=== PATIENT | male | born 1955 | race Caucasian/White ===

== ENCOUNTER 2017-05-14 04:49 | Inpatient (IN) | payer MEDICARE, SELFPAY ==
[2017-05-14] VITALS (43 sets, daily range): BP systolic 92–185; BP diastolic 43–92; PULSE 72–151; RESP 14–37; TEMP 36.3–39.4; O2SAT 95–100; BMI 33.9; BMI 31.9
--- NOTE | 2017-05-14 04:51 | NURSING ---
rn called for ekg, pulled old ekg's for
--- NOTE | 2017-05-14 04:53 | RAD_ITS ---
STUDY: X-RAY CHEST REASON FOR EXAM: Male, 61 years old. Shortness of breath TECHNIQUE: Single frontal view COMPARISON: None. FINDINGS: There is suboptimal inspiration There are bibasilar infiltrates and small effusions larger on the RIGHT. There is NO pneumothorax. Heart is borderline enlarged. Normal mediastinum and elizabeth. Normal visualized pulmonary arteries. Normal visualized aortic arch and descending thoracic aorta. Normal visualized thoracic spine. There is fracture of RIGHT rib #7. There is no demonstrated abnormality of the visualized soft tissue structures of the upper abdomen. RAD/Chest 1 View (Portable) IMPRESSION: There is suboptimal inspiration There are bibasilar infiltrates and small effusions larger on the RIGHT. There is NO pneumothorax. Heart is borderline enlarged. Electronically Signed: Ryan Mejia MD at 6:22 EST , Service support ,
--- NOTE | 2017-05-14 04:53 | EKG12_ITS ---
Test Reason : SOB Blood Pressure : / mmHG Vent. Rate : 149 BPM Atrial Rate : 150 BPM P-R Int : 168 ms QRS Dur : 078 ms QT Int : 256 ms P-R-T Axes : 000 067 081 degrees QTc Int : 403 ms Sinus tachycardia with frequent Premature ventricular complexes Nonspecific ST and T wave abnormality Abnormal ECG When compared with ECG of 25-SEP-2007 07:47, MANUAL COMPARISON REQUIRED, DATA IS UNCONFIRMED Confirmed by HARSH ASIF, SARA ([id number]), scientific publications editor KEVIN MORRELL ([id number]) on 05/26/2017 3:30:36 PM Referred By: RADHA Confirmed By:SARA HOUSE MD
[2017-05-14] MEDS: MethylPREDNISolone 125 MG/2 ML Vial IV (05:01)
[2017-05-14] MEDS: Ipratropium/Albuterol Sulfate 3 ML AMPUL.NEB INHALATION ×4 (05:01→19:08)
[2017-05-14] MEDS: Albuterol 2.5 MG/3 ML VIAL.NEB. INHALATION ×3 (05:01→05:15)
[2017-05-14] MEDS: 0.9% Normal Saline 1,000 ML 999 ML IV (05:03)
--- NOTE | 2017-05-14 05:05 | ED.DCSUM_ITS ---
- ER Visit Summary Date of Service: 05/14/17 Chief Complaint: Cough, shortness of breath History of Present Illness: The patient is a 61 M with history of COPD, coronary vascular disease presents to the emergency department with shortness of breath. The patient states over the past 3 days, he is a gradual worsening shortness of breath. Patient states over the past 12 hours, he had cough productive sputum, fevers, chills, myalgias. The patient did have prior right lobectomy for lung mass that was not cancerous. He does have chronic underlying lung condition. The patient is on Plavix but denies any other anticoagulants. He denies any sick contacts. He did not get a flu shot this year. Patient called squad because he felt like he cannot breathe. On squad arrival, the patient was 86% on room air. He has apparently tried his CPAP tonight to see if that help his breathing but it did not work. He does have some chest tightness, but feels like it is more related to his breathing. He did take a nitro with no change in his symptoms. Physical Examination: Vital signs reviewed General: Well-nourished, well-developed Head: Normocephalic, atraumatic Eyes: Pupils equal and reactive, extraocular muscles intact Neck, supple, no lymphadenopathy Heart: Regular tachycardic rate without murmur Respiratory: Moderate respiratory distress with diminished air movement and wheezing in all [place] Abdomen: Soft, nontender, nondistended, no peritoneal signs Back: Nontender Extremities: Nontender, no edema, no cords Skin: Normal color no rash Neuro: Alert and oriented, no focal or lateralizing deficits Test Results: EKG demonstrates sinus tachycardia with some lateral ST depression. Chest x-ray demonstrates bilateral infiltrates and small effusions. Screening labs show leukocytosis, anemia, acute kidney injury, elevated lactate, and indeterminate troponin. Emergency Department Course and Treatment: Patient presents with cough, dyspnea , fever, and general malaise. Sepsis workup was pursued immediately on arrival. Patient was able to be placed on nasal cannula breathing treatments. He had improvement of his aeration, but stayed tachypneic and tachycardic. His EKG does not show acute ST elevation, and there is some lateral depression but I do feel this is likely secondary to his hypoxia and underlying metabolic deficit. Immediate blood gas was obtained which shows metabolic acidosis with respiratory compensation. Screening labs demonstrate leukocytosis and a new anemia. Unfortunately, we have no old labs to compare to. In discussion with the patient, he has had some diarrhea over the past 2 days that he said has been dark. He is on 2 different anticoagulants. I do have some suspicion that there may be GI bleed involved that is worsening his symptoms. Patient was typed and crossed for 2 units, especially given his underlying cardiac disease and evidence of endorgan dysfunction. He has acute kidney injury with no old to compare to. His lactate is mildly elevated. The patient was aggressively hydrated. He was transitioned to BiPAP for comfort with improvement. At this time, the patient is going to need ICU admission. He was discussed with Dr. Barlow. The patient was covered with vancomycin and Zosyn. His influenza was negative. The patient will be admitted for severe sepsis, GI bleed, and respiratory failure. Treatment Plan: [] Disposition: Admit to ICU Impression:. Severe sepsis 2. Acute respiratory failure 3. Bilateral pneumonia 4. GI bleed 5. Indeterminate troponin This note was generated with [employer] dictation software. It may contain incorrect words, spelling, and punctuation that were not noted in review of the chart prior to signing ED Disposition - Plan for ED Patient: Chief Complaint: Shortness of Breath Referrals: Caesar Chavez DO [Primary Care Provider] -
[2017-05-14 05:16] LABS: Allen Test POS; Base Excess -11 mmol/L (-2 to +2); Bicarbonate 15.6 mmol/L (22-26); Blood Gas Specimen Type ART; O2 Delivery Device Nasal Can; PO2 92 mmHG (75-100); SITE L Radial; SO2 97 % (95-99); Total Carbon Dioxide 16 mmol/L; pCO2 30.3 mmHg (35-45); pH 7.32 (7.35-7.45)
[2017-05-14 05:25] LABS: Absolute Lymphocyte Count 1.05 X10^3/ul (0.83-4.51); Absolute Neutrophil Count 10.8 X10^3/uL (2.0-7.7); Basophil# 0.03 X10^3/uL; Basophil% 0.2 % (0-1); Eosinophil# 0.02 X10^3/uL; Eosinophils% 0.2 % (0-5); Hematocrit 22.7 % (40-54); Hemoglobin 6.3 g/dl (13.0-16.5); Lymphocyte # 1.05 X10^3/ul (4.0); Lymphocyte % 8.2 % (19-41); Mean Corp Hgb Conc 27.8 g/gl (32-36); Mean Corpuscular Hgb 19.9 pg (27.0-32.0); Mean Corpuscular Volume 71.6 fL (80-94); Mean Platelet Vol. 10.8 fl (6.2-12.0); Monocyte# 0.89 X10^3/uL; Monocyte% 6.9 % (0-10); Neutrophil # 10.82 X10^3/uL (2.7-7.7); Platelet Count 407 K/mm3 (150-450); RBC Distribution Width CV 18.4 % (11.6-14.6); RBC Distribution Width SD 45.1 fl (35.1-43.9); Red Blood Count 3.17 M/mm3 (4.6-6.2); White Blood Count 12.9 K/mm3 (4.4-11.0)
[2017-05-14 05:26] LABS: POSITIVE COUNT NO; POSITIVE DIFFERENTIAL NO
[2017-05-14 05:27] LABS: Differential Indicated SCAN CRITERIA MET; POSITIVE MORPHOLOGY YES
[2017-05-14 05:37] LABS: Anion Gap 13 (5-15); BUN 67 mg/dL (7-18); BUN/Creat Ratio 20.6 RATIO (10-20); Calcium,Total 8.3 mg/dL (8.5-10.1); Chloride 107 mmol/L (98-107); Creatinine, Serum 3.25 mg/dL (0.70-1.30); EST Glomerular Filtration Rate 21 mL/min (>60); Est Glom Filt Rate - Afr Amer 25 mL/min (>60); Estimated Creatinine Clearance 26.63 ml/min; Glucose 80 mg/dL (74-106); Potassium 4.8 mmol/L (3.5-5.1); Sodium Level 139 mmol/L (136-145)
[2017-05-14 06:06] LABS: Lactic Acid 2.4 mmol/L (0.4-2.0)
[2017-05-14] MEDS: Piperacil/Tazobactam 3.375 GM/50 ML ML IV (06:11)
[2017-05-14 06:20] LABS: Anisocytosis 1+; Differential Comment SCAN; Hypochromasia 2+; Microcytosis 1+; Polychromasia 1+
[2017-05-14] MEDS: 0.9% Normal Saline 1,000 ML 1000 ML IV (06:21)
--- NOTE | 2017-05-14 07:01 | PCM.HP.STD ---
Problem List (1) Coronary artery disease Status: Acute (2) COPD with severe acute bronchitis Status: Acute (3) Acute on chronic blood loss anemia Status: Acute (4) Benign lung tumor s/p right lobectomy Status: Acute (5) Lower GI bleed Status: Acute (6) Acute hypoxic respiratory failure Status: Acute (7) Chronic left upper extremity numbness Status: Acute (8) Hypertension Status: Chronic (9) Acute kidney injury Status: Acute (10) Diabetes mellitus type 2 in obese Status: Chronic History of Present Illness Date of Admission: 05/14/17 Chief Complaint: Acute respiratory failure, low hemoglobin severe anemia and multiple complaints The patient is a 61 year old M with multiple comorbidities as listed above came to ER with 3 days of history of progressive worsening of shortness of breath, fever with chills, respiratory distress and wheezing. Patient also said he had intermittent dark blood in the stool for last 1 or 2 weeks. As per the EMS, his heart rate was 1 40/min, respiratory 22, blood pressure 210/102 and pulse ox 86% on room air. Patient uses CPAP at night but is not on home oxygen. Besides that he has most probably right lower lobectomy most rarely for benign tumor about 10 years ago. Patient also had cardiac stents about 12 years ago in [facility]. He saw his PCP in [facility] on April 01 and at that time his A1c was 8.4. Last hemoglobin on 1226 was 8.5 g percent. Patient denies any decrease in the urine output. In ER, he was found in acute hypoxic respiratory failure is tachypnea and put on BiPAP. Since then his breathing has little improved. In ED, he was found to have acute severe anemia hemoglobin 6.3, leukocytosis with left shift, lactic acidemia, creatinine 3.25, BUN 67 suggestive of possible acute kidney injury. ABG shows mixed acid-base disorder with an anion gap metabolic acidosis, respiratory alkalosis. Patient was given 1 dose of IV vancomycin and Zosyn, 2 units of PRBC ordered and ordered to admitted in ICU. ER physician already talked with Dr. Barlow.] Past Medical History Past Medical History (Chronic Problems): Chronic Problems Hypertension (Chronic) Diabetes mellitus type 2 in obese (Chronic) Allergies No Known Allergies Allergy (Verified 05/14/17 05:00) Home Medications: Ambulatory Orders Medication Instructions Recorded Albuterol Inhaler [Ventolin Hfa 1 - 2 puff INHALATION Q6H PRN PRN 05/14/17 (SP)] Allopurinol 300 mg PO DAILY 05/14/17 Aspirin 81 mg PO DAILY 05/14/17 Cilostazol 100 mg PO BID 05/14/17 Clopidogrel Bisulfate [Clopidogrel] 75 mg PO DAILY 05/14/17 Diazepam 10 mg PO DAILY 05/14/17 Insulin Aspart [Novolog Flexpen 30 - 60 units SC TID 05/14/17 ([facility])] Insulin Degludec [Tresiba 60 unit SQ BID 05/14/17 Flextouch U-100] Lisinopril [Zestril] 40 mg PO DAILY 05/14/17 Meloxicam [Mobic] 15 mg PO DAILY 05/14/17 Nitroglycerin [Nitrostat] 0.4 mg SUBLINGUAL Q5M PRN 05/14/17 Probenecid 500 mg PO DAILY 05/14/17 Simvastatin 80 mg PO DAILY 05/14/17 Smoking Status: Former smoker Review of Systems Constitutional: Reports: Anorexia, Chills, Fever, Weakness, Weight Change HEENT: Denies: Head Aches, Sinus Congestion, Sinus Drainage Cardiovascular: Denies: Chest Pain Respiratory: Reports: Cough, Shortness of Breath, Shortness of breath at rest, Shortness of breath upon exertion, Wheezing Gastrointestinal: Reports: Hematochezia. Denies: Abdominal Pain Neurological: Reports: Numbness - Chronic left upper extremity numbness after epidural anesthesia for right lower lobectomy. Denies: Focal weakness, Tingling Unable to obtain accurate/complete ROS d/t: Patient is on BiPAP and is in respiratory distress. VTE Information - Inpt Only VTE Present on Admission: No VTE Mechan Device Prophylaxis: SCD's VTE Pharm Prophylaxis ordered?: No Reason prophylaxis not ordered:: Medical Contraindication - Severe anemia Patient Problems: Active and Suspected Problems Coronary artery disease (Acute) COPD with severe acute bronchitis (Acute) Acute on chronic blood loss anemia (Acute) Benign lung tumor s/p right lobectomy (Acute) Lower GI bleed (Acute) Acute hypoxic respiratory failure (Acute) Chronic left upper extremity numbness (Acute) Acute kidney injury (Acute) - Physical Exam General: Alert, Oriented x3, Lethargic, - - Respiratory distress HEENT: Atraumatic, PERRLA, EOMI, Normocephalic Neck: Supple, No JVD, Negative Carotid Bruits Lungs: Diminished, Rhonchi, Tachypneic, Using Accessory Muscles, Wheezes Cardiovascular: Regular Rhythm, Normal S1, Normal S2, No murmurs, Tachycardic Abdomen: Bowel Sounds Present, Soft, Non Tender, Non-Distended Extremities: No edema, Capillary Refill Less than 3 Seconds Skin: No rashes, No breakdown Musculoskeletal: No Tenderness to Palpation of Joints or Extremities, Arthritic Changes Neurological: Cranial nerves II-XII grossly intact, Neuro grossly intact, - - Chronic left upper extremity numbness Psych/Mental Status: Anxious Vital Signs Temp Pulse Resp BP Pulse Ox 100.9 F H 141 H 36 H 129/70 H 99 05/14/17 06:35 05/14/17 06:35 05/14/17 06:35 05/14/17 06:35 05/14/17 06:35 Oxygen Flow Rate 5 Oxygen Delivery Method Bi-pap Weight: 257 lb 0.944 oz Body Mass Index (BMI) 33.9 Microbiology Past 72 Hours 05/14/17 04:58 Influenza Types A,B Direct FA (ИВАН) - Final Mucosa - Nasopharyngeal Laboratory Tests Past 24 Hrs 05/14/17 05/14/17 05/14/17 05:10 05:10 05:10 WBC 12.9 H RBC 3.17 L Hgb 6.3 L Hct 22.7 L MCV 71.6 L MCH 19.9 L MCHC 27.8 L RDW 18.4 H RDW Differential 45.1 H Plt Count 407 MPV 10.8 Immature Gran % (Auto) 0.500 Neut % (Auto) 84.0 H Lymph % (Auto) 8.2 L [place] % (Auto) 6.9 Eos % (Auto) 0.2 Baso % (Auto) 0.2 Absolute Neuts (auto) 10.8 H Absolute Lymphs (auto) 1.05 Total Counted Not Reportable Differential Comment SCAN Polychromasia 1+ Hypochromasia 2+ Anisocytosis 1+ Microcytosis 1+ Specimen Type Sample Site pH Bicarbonate Actual POC Total CO2 Base Excess O2 Saturation ABG pCO2 ABG pO2 Donnie Test O2 Delivery Device Liter Flow Blood Gas Notified Whom Sodium 139 Potassium 4.8 Chloride 107 Carbon Dioxide 19.0 L Anion Gap 13 BUN 67 H Creatinine 3.25 H Estim Creat Clear Calc 26.63 Est GFR (MDRD) Af Amer 25 L Est GFR (MDRD) Non-Af 21 L BUN/Creatinine Ratio 20.6 H Glucose 80 Lactic Acid 2.4 H Calcium 8.3 L Troponin I 0.39 H B-Natriuretic Peptide Blood Type Antibody Screen Crossmatch 05/14/17 05/14/17 05/14/17 05:10 05:11 05:50 WBC RBC Hgb Hct MCV MCH MCHC RDW RDW Differential Plt Count MPV Immature Gran % (Auto) Neut % (Auto) Lymph % (Auto) [place] % (Auto) Eos % (Auto) Baso % (Auto) Absolute Neuts (auto) Absolute Lymphs (auto) Total Counted Differential Comment Polychromasia Hypochromasia Anisocytosis Microcytosis Specimen Type ART Sample Site L Radial pH 7.32 L Bicarbonate Actual 15.6 L POC Total CO2 16 Base Excess -11 L O2 Saturation 97 ABG pCO2 30.3 L ABG pO2 92 Donnie Test POS O2 Delivery Device Nasal Can Liter Flow 5.0 Blood Gas Notified Whom ED Sodium Potassium Chloride Carbon Dioxide Anion Gap BUN Creatinine Estim Creat Clear Calc Est GFR (MDRD) Af Amer Est GFR (MDRD) Non-Af BUN/Creatinine Ratio Glucose Lactic Acid Calcium Troponin I B-Natriuretic Peptide Pending Blood Type Pending Antibody Screen Pending Crossmatch See Detail Assessment/Plan Active and Suspected Problems Coronary artery disease (Acute) COPD with severe acute bronchitis (Acute) Acute on chronic blood loss anemia (Acute) Benign lung tumor s/p right lobectomy (Acute) Lower GI bleed (Acute) Acute hypoxic respiratory failure (Acute) Chronic left upper extremity numbness (Acute) Acute kidney injury (Acute) The patient is a 61 year old M with multiple comorbidities as listed above came to ER with 3 days of history of progressive worsening of shortness of breath, fever with chills, respiratory distress and wheezing. Patient also said he had intermittent dark blood in the stool for last 1 or 2 weeks. As per the EMS, his heart rate was 140/min, respiratory 22, blood pressure 210/102 and pulse ox 86% on room air. Patient uses CPAP at night but is not on home oxygen. Besides that he has most probably right lower lobectomy most rarely for benign tumor about 10 years ago. Patient also had cardiac stents about 12 years ago in [facility]. He saw his PCP in [facility] on April 01, 2017 and at that time his A1c was 8.4. Last hemoglobin on 03/12 was 8.5 g percent. Patient denies any decrease in the urine output. In ER, he was found in acute hypoxic respiratory failure is tachypnea and put on BiPAP. Since then his breathing has little improved. In ED, he was found to have acute severe anemia hemoglobin 6.3, leukocytosis with left shift, lactic acidemia, creatinine 3.25, BUN 67 suggestive of possible acute kidney injury. ABG shows mixed acid-base disorder with an anion gap metabolic acidosis, respiratory alkalosis. Patient was given 1 dose of IV vancomycin and Zosyn, 2 units of PRBC ordered and ordered to admitted in ICU. ER physician already talked with Dr. Barlow.] 1. Acute hypoxic respiratory failure most rarely due to COPD exacerbation and bilateral lower lobes community-acquired pneumonia: Patient is being admitted in the ICU. Currently improving on BiPAP. Will continue. 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 Barlow has been consulted. 2. SIRS WITH severe sepsis (tachycardia, tachypnea, hypoxia and lactic acidosis) due to bilateral lower lobes community-acquired pneumonia: Patient is started on IV vancomycin and Zosyn. Pneumonia workup with blood cultures ?2, urinary antigens, sputum culture, and respiratory panel. 3. COPD with severe acute bronchitis: On bronchodilator, Mucinex, Solu-Medrol and incentive spirometry as per tolerated. 4. Acute on chronic severe anemia most probably from LOWER GI blood loss anemia: 2 units of PRBC ordered. Major H&H every 8 hourly after transfusion. At this point of time, exact anatomical level of bleeding is unclear. On Protonix 40 mg IV every 12 hourly. 5. Acute kidney injury with prerenal azotemia most probably prerenal/ATN from severe sepsis: IV fluid normal saline. Monitor intake and output. Hoff catheter insertion. Nephrology consult. Avoid nephrotoxic medications. Hold nephrotoxic medications including SHAR inhibitor, NSAIDs and allopurinol and probenecid. 6. Diabetes mellitus type 2: Patient previous ANC 8.4 on April 01. Accu-Chek before meals and at bedtime and cover with NovoLog sliding scale. 7. Accelerated hypertension: Blood pressure was very high in the ER. Monitor blood pressure. On hydralazine 10 mg IV every 4 hourly as needed for systolic blood pressure more than 180 mmHg. 8. Coronary artery disease status post stents about 10-12 years ago: No chest pain. Troponin slightly elevated most probably from demand ischemia from severe sepsis. Hold aspirin, Plavix, cilostazol because of severe anemia. 9. Multiple comorbidities include right lower lobectomy from benign lung tumor, obstructive sleep apnea on CPAP, chronic left upper extremity numbness since lung surgery after epidural anesthesia. Multiple comorbidities complicates the present care and recovery. Home medication reconciliation done. Microbiology Past 72 Hours 05/14/17 04:58 Mucosa - Nasopharyngeal Influenza Types A,B Direct FA (ИВАН) - Final Laboratory Results 05/14/17 05:10: WBC 12.9 H, RBC 3.17 L, Hgb 6.3 L, Hct 22.7 L, MCV 71.6 L, MCH 19.9 L, MCHC 27.8 L, RDW 18.4 H, RDW Differential 45.1 H, Plt Count 407, MPV 10.8, Immature Gran % (Auto) 0.500, Neut % (Auto) 84.0 H, Lymph % (Auto) 8.2 L, [place] % (Auto) 6.9, Eos % (Auto) 0.2, Baso % (Auto) 0.2, Absolute Neuts (auto) 10.8 H, Absolute Lymphs (auto) 1.05, Total Counted Not Reportable, Differential Comment SCAN, Polychromasia 1+, Hypochromasia 2+, Anisocytosis 1+, Microcytosis 1+ 05/14/17 05:10: Sodium 139, Potassium 4.8, Chloride 107, Carbon Dioxide 19.0 L, Anion Gap 13, BUN 67 H, Creatinine 3.25 H, Estim Creat Clear Calc 26.63, Est GFR (MDRD) Af Amer 25 L, Est GFR (MDRD) Non-Af 21 L, BUN/Creatinine Ratio 20.6 H, Glucose 80, Calcium 8.3 L, Troponin I 0.39 H 05/14/17 05:10: Lactic Acid 2.4 H 05/14/17 05:10: B-Natriuretic Peptide 35.2 05/14/17 05:11: Specimen Type ART, Sample Site L Radial, pH 7.32 L, Bicarbonate Actual 15.6 L, POC Total CO2 16, Base Excess -11 L, O2 Saturation 97, ABG pCO2 30.3 L, ABG pO2 92, Donnie Test POS, O2 Delivery Device Nasal Can, Liter Flow 5.0, Blood Gas Notified Whom ED 05/14/17 05:50: Blood Type A POSITIVE, Antibody Screen NEGATIVE, Crossmatch See Detail Clinical Impression(s) from Imaging Studies Chest X-Ray 05/14/17 04:53 IMPRESSION: There is suboptimal inspiration There are bibasilar infiltrates and small effusions larger on the RIGHT. There is NO pneumothorax. Heart is borderline enlarged. Electronically Signed: Ryan Mejia MD at 6:22 EST , Service support , Code Visit Inpatient E&M: 46210 Init Hosp L3
[2017-05-14 07:10] LABS: BNP,B-Type NATRIURETIC PEPTIDE 35.2 pg/mL (0-100)
--- NOTE | 2017-05-14 07:13 | HP.PCM_ITS ---
Problem List (1) Coronary artery disease Status: Acute (2) COPD with severe acute bronchitis Status: Acute (3) Acute on chronic blood loss anemia Status: Acute (4) Benign lung tumor s/p right lobectomy Status: Acute (5) Lower GI bleed Status: Acute (6) Acute hypoxic respiratory failure Status: Acute (7) Chronic left upper extremity numbness Status: Acute (8) Hypertension Status: Chronic (9) Acute kidney injury Status: Acute (10) Diabetes mellitus type 2 in obese Status: Chronic History of Present Illness Date of Admission: 05/14/17 Chief Complaint: Acute respiratory failure, low hemoglobin severe anemia and multiple complaints The patient is a 61 year old M with multiple comorbidities as listed above came to ER with 3 days of history of progressive worsening of shortness of breath, fever with chills, respiratory distress and wheezing. Patient also said he had intermittent dark blood in the stool for last 1 or 2 weeks. As per the EMS, his heart rate was 1 40/min, respiratory 22, blood pressure 210/102 and pulse ox 86% on room air. Patient uses CPAP at night but is not on home oxygen. Besides that he has most probably right lower lobectomy most rarely for benign tumor about 10 years ago. Patient also had cardiac stents about 12 years ago in [facility]. He saw his PCP in [facility] on April 01 and at that time his A1c was 8.4. Last hemoglobin on 1226 was 8.5 g percent. Patient denies any decrease in the urine output. In ER, he was found in acute hypoxic respiratory failure is tachypnea and put on BiPAP. Since then his breathing has little improved. In ED, he was found to have acute severe anemia hemoglobin 6.3, leukocytosis with left shift, lactic acidemia, creatinine 3.25, BUN 67 suggestive of possible acute kidney injury. ABG shows mixed acid-base disorder with an anion gap metabolic acidosis, respiratory alkalosis. Patient was given 1 dose of IV vancomycin and Zosyn, 2 units of PRBC ordered and ordered to admitted in ICU. ER physician already talked with Dr. Barlwo.] Past Medical History Past Medical History (Chronic Problems): Chronic Problems Hypertension (Chronic) Diabetes mellitus type 2 in obese (Chronic) Allergies No Known Allergies Allergy (Verified 05/14/17 05:00) Home Medications: Ambulatory Orders Medication Instructions Recorded Albuterol Inhaler [Ventolin Hfa 1 - 2 puff INHALATION Q6H PRN PRN 05/14/17 (SP)] Allopurinol 300 mg PO DAILY 05/14/17 Aspirin 81 mg PO DAILY 05/14/17 Cilostazol 100 mg PO BID 05/14/17 Clopidogrel Bisulfate [Clopidogrel] 75 mg PO DAILY 05/14/17 Diazepam 10 mg PO DAILY 05/14/17 Insulin Aspart [Novolog Flexpen 30 - 60 units SC TID 05/14/17 ([facility])] Insulin Degludec [Tresiba 60 unit SQ BID 05/14/17 Flextouch U-100] Lisinopril [Zestril] 40 mg PO DAILY 05/14/17 Meloxicam [Mobic] 15 mg PO DAILY 05/14/17 Nitroglycerin [Nitrostat] 0.4 mg SUBLINGUAL Q5M PRN 05/14/17 Probenecid 500 mg PO DAILY 05/14/17 Simvastatin 80 mg PO DAILY 05/14/17 Smoking Status: Former smoker Review of Systems Constitutional: Reports: Anorexia, Chills, Fever, Weakness, Weight Change HEENT: Denies: Head Aches, Sinus Congestion, Sinus Drainage Cardiovascular: Denies: Chest Pain Respiratory: Reports: Cough, Shortness of Breath, Shortness of breath at rest, Shortness of breath upon exertion, Wheezing Gastrointestinal: Reports: Hematochezia. Denies: Abdominal Pain Neurological: Reports: Numbness - Chronic left upper extremity numbness after epidural anesthesia for right lower lobectomy. Denies: Focal weakness, Tingling Unable to obtain accurate/complete ROS d/t: Patient is on BiPAP and is in respiratory distress. VTE Information - Inpt Only VTE Present on Admission: No VTE Mechan Device Prophylaxis: SCD's VTE Pharm Prophylaxis ordered?: No Reason prophylaxis not ordered:: Medical Contraindication - Severe anemia Patient Problems: Active and Suspected Problems Coronary artery disease (Acute) COPD with severe acute bronchitis (Acute) Acute on chronic blood loss anemia (Acute) Benign lung tumor s/p right lobectomy (Acute) Lower GI bleed (Acute) Acute hypoxic respiratory failure (Acute) Chronic left upper extremity numbness (Acute) Acute kidney injury (Acute) - Physical Exam General: Alert, Oriented x3, Lethargic, - - Respiratory distress HEENT: Atraumatic, PERRLA, EOMI, Normocephalic Neck: Supple, No JVD, Negative Carotid Bruits Lungs: Diminished, Rhonchi, Tachypneic, Using Accessory Muscles, Wheezes Cardiovascular: Regular Rhythm, Normal S1, Normal S2, No murmurs, Tachycardic Abdomen: Bowel Sounds Present, Soft, Non Tender, Non-Distended Extremities: No edema, Capillary Refill Less than 3 Seconds Skin: No rashes, No breakdown Musculoskeletal: No Tenderness to Palpation of Joints or Extremities, Arthritic Changes Neurological: Cranial nerves II-XII grossly intact, Neuro grossly intact, - - Chronic left upper extremity numbness Psych/Mental Status: Anxious Vital Signs Temp Pulse Resp BP Pulse Ox 100.9 F H 141 H 36 H 129/70 H 99 05/14/17 06:35 05/14/17 06:35 05/14/17 06:35 05/14/17 06:35 05/14/17 06:35 Oxygen Flow Rate 5 Oxygen Delivery Method Bi-pap Weight: 257 lb 0.944 oz Body Mass Index (BMI) 33.9 Microbiology Past 72 Hours 05/14/17 04:58 Influenza Types A,B Direct FA (ИВАН) - Final Mucosa - Nasopharyngeal Laboratory Tests Past 24 Hrs 05/14/17 05/14/17 05/14/17 05:10 05:10 05:10 WBC 12.9 H RBC 3.17 L Hgb 6.3 L Hct 22.7 L MCV 71.6 L MCH 19.9 L MCHC 27.8 L RDW 18.4 H RDW Differential 45.1 H Plt Count 407 MPV 10.8 Immature Gran % (Auto) 0.500 Neut % (Auto) 84.0 H Lymph % (Auto) 8.2 L Spalding % (Auto) 6.9 Eos % (Auto) 0.2 Baso % (Auto) 0.2 Absolute Neuts (auto) 10.8 H Absolute Lymphs (auto) 1.05 Total Counted Not Reportable Differential Comment SCAN Polychromasia 1+ Hypochromasia 2+ Anisocytosis 1+ Microcytosis 1+ Specimen Type Sample Site pH Bicarbonate Actual POC Total CO2 Base Excess O2 Saturation ABG pCO2 ABG pO2 Donnie Test O2 Delivery Device Liter Flow Blood Gas Notified Whom Sodium 139 Potassium 4.8 Chloride 107 Carbon Dioxide 19.0 L Anion Gap 13 BUN 67 H Creatinine 3.25 H Estim Creat Clear Calc 26.63 Est GFR (MDRD) Af Amer 25 L Est GFR (MDRD) Non-Af 21 L BUN/Creatinine Ratio 20.6 H Glucose 80 Lactic Acid 2.4 H Calcium 8.3 L Troponin I 0.39 H B-Natriuretic Peptide Blood Type Antibody Screen Crossmatch 05/14/17 05/14/17 05/14/17 05:10 05:11 05:50 WBC RBC Hgb Hct MCV MCH MCHC RDW RDW Differential Plt Count MPV Immature Gran % (Auto) Neut % (Auto) Lymph % (Auto) Spalding % (Auto) Eos % (Auto) Baso % (Auto) Absolute Neuts (auto) Absolute Lymphs (auto) Total Counted Differential Comment Polychromasia Hypochromasia Anisocytosis Microcytosis Specimen Type ART Sample Site L Radial pH 7.32 L Bicarbonate Actual 15.6 L POC Total CO2 16 Base Excess -11 L O2 Saturation 97 ABG pCO2 30.3 L ABG pO2 92 Donnie Test POS O2 Delivery Device Nasal Can Liter Flow 5.0 Blood Gas Notified Whom ED Sodium Potassium Chloride Carbon Dioxide Anion Gap BUN Creatinine Estim Creat Clear Calc Est GFR (MDRD) Af Amer Est GFR (MDRD) Non-Af BUN/Creatinine Ratio Glucose Lactic Acid Calcium Troponin I B-Natriuretic Peptide Pending Blood Type Pending Antibody Screen Pending Crossmatch See Detail Assessment/Plan Active and Suspected Problems Coronary artery disease (Acute) COPD with severe acute bronchitis (Acute) Acute on chronic blood loss anemia (Acute) Benign lung tumor s/p right lobectomy (Acute) Lower GI bleed (Acute) Acute hypoxic respiratory failure (Acute) Chronic left upper extremity numbness (Acute) Acute kidney injury (Acute) The patient is a 61 year old M with multiple comorbidities as listed above came to ER with 3 days of history of progressive worsening of shortness of breath, fever with chills, respiratory distress and wheezing. Patient also said he had intermittent dark blood in the stool for last 1 or 2 weeks. As per the EMS, his heart rate was 140/min, respiratory 22, blood pressure 210/102 and pulse ox 86% on room air. Patient uses CPAP at night but is not on home oxygen. Besides that he has most probably right lower lobectomy most rarely for benign tumor about 10 years ago. Patient also had cardiac stents about 12 years ago in [facility]. He saw his PCP in [facility] on April 01, 2017 and at that time his A1c was 8.4. Last hemoglobin on 03/12 was 8.5 g percent. Patient denies any decrease in the urine output. In ER, he was found in acute hypoxic respiratory failure is tachypnea and put on BiPAP. Since then his breathing has little improved. In ED, he was found to have acute severe anemia hemoglobin 6.3, leukocytosis with left shift, lactic acidemia, creatinine 3.25, BUN 67 suggestive of possible acute kidney injury. ABG shows mixed acid-base disorder with an anion gap metabolic acidosis, respiratory alkalosis. Patient was given 1 dose of IV vancomycin and Zosyn, 2 units of PRBC ordered and ordered to admitted in ICU. ER physician already talked with Dr. Barlow.] 1. Acute hypoxic respiratory failure most rarely due to COPD exacerbation and bilateral lower lobes community-acquired pneumonia: Patient is being admitted in the ICU. Currently improving on BiPAP. Will continue. Shell Sieve Operator/ medical reimbursement manager Dr. Barlow has been consulted. 2. SIRS WITH severe sepsis (tachycardia, tachypnea, hypoxia and lactic acidosis ) due to bilateral lower lobes community-acquired pneumonia: Patient is started on IV vancomycin and Zosyn. Pneumonia workup with blood cultures ?2, urinary antigens, sputum culture, and respiratory panel. 3. COPD with severe acute bronchitis: On bronchodilator, Mucinex, Solu-Medrol and incentive spirometry as per tolerated. 4. Acute on chronic severe anemia most probably from LOWER GI blood loss anemia: 2 units of PRBC ordered. Major H&H every 8 hourly after transfusion. At this point of time, exact anatomical level of bleeding is unclear. On Protonix 40 mg IV every 12 hourly. 5. Acute kidney injury with prerenal azotemia most probably prerenal/ATN from severe sepsis: IV fluid normal saline. Monitor intake and output. Hoff catheter insertion. Nephrology consult. Avoid nephrotoxic medications. Hold nephrotoxic medications including SHAR inhibitor, NSAIDs and allopurinol and probenecid. 6. Diabetes mellitus type 2: Patient previous ANC 8.4 on April 01. Accu- Chek before meals and at bedtime and cover with NovoLog sliding scale. 7. Accelerated hypertension: Blood pressure was very high in the ER. Monitor blood pressure. On hydralazine 10 mg IV every 4 hourly as needed for systolic blood pressure more than 180 mmHg. 8. Coronary artery disease status post stents about 10-12 years ago: No chest pain. Troponin slightly elevated most probably from demand ischemia from severe sepsis. Hold aspirin, Plavix, cilostazol because of severe anemia. 9. Multiple comorbidities include right lower lobectomy from benign lung tumor , obstructive sleep apnea on CPAP, chronic left upper extremity numbness since lung surgery after epidural anesthesia. Multiple comorbidities complicates the present care and recovery. Home medication reconciliation done. Microbiology Past 72 Hours 05/14/17 04:58 Mucosa - Nasopharyngeal Influenza Types A,B Direct FA (ИВАН) - Final Laboratory Results 05/14/17 05:10: WBC 12.9 H, RBC 3.17 L, Hgb 6.3 L, Hct 22.7 L, MCV 71.6 L, MCH 19.9 L, MCHC 27.8 L, RDW 18.4 H, RDW Differential 45.1 H, Plt Count 407, MPV 10.8, Immature Gran % (Auto) 0.500, Neut % (Auto) 84.0 H, Lymph % (Auto) 8.2 L, Spalding % (Auto) 6.9, Eos % (Auto) 0.2, Baso % (Auto) 0.2, Absolute Neuts (auto) 10.8 H, Absolute Lymphs (auto) 1.05, Total Counted Not Reportable, Differential Comment SCAN, Polychromasia 1+, Hypochromasia 2+, Anisocytosis 1+, Microcytosis 1+ 05/14/17 05:10: Sodium 139, Potassium 4.8, Chloride 107, Carbon Dioxide 19.0 L, Anion Gap 13, BUN 67 H, Creatinine 3.25 H, Estim Creat Clear Calc 26.63, Est GFR (MDRD) Af Amer 25 L, Est GFR (MDRD) Non-Af 21 L, BUN/Creatinine Ratio 20.6 H , Glucose 80, Calcium 8.3 L, Troponin I 0.39 H 05/14/17 05:10: Lactic Acid 2.4 H 05/14/17 05:10: B-Natriuretic Peptide 35.2 05/14/17 05:11: Specimen Type ART, Sample Site L Radial, pH 7.32 L, Bicarbonate Actual 15.6 L, POC Total CO2 16, Base Excess -11 L, O2 Saturation 97, ABG pCO2 30.3 L, ABG pO2 92, Donnie Test POS, O2 Delivery Device Nasal Can, Liter Flow 5.0 , Blood Gas Notified Whom ED 05/14/17 05:50: Blood Type A POSITIVE, Antibody Screen NEGATIVE, Crossmatch See Detail Clinical Impression(s) from Imaging Studies Chest X-Ray 05/14/17 04:53 IMPRESSION: There is suboptimal inspiration There are bibasilar infiltrates and small effusions larger on the RIGHT. There is NO pneumothorax. Heart is borderline enlarged. Electronically Signed: Ryan Mejia MD at 6:22 EST , Service support , Code Visit Inpatient E&M: [id number] Init Hosp L3
--- NOTE | 2017-05-14 07:20 | ECHOD_ITS ---
Version 2 Reason For Study: DYSPNEA Procedure This was a 2D Doppler, Color Flow transthoracic echocardiogram. Contrast injection was performed. The study was technically difficult. Pt on CPAP . Exam performed portable in ICU/CCU. Left Ventricle Normal size and thickness. The estimated ejection fraction is 65 %. Stage 2 diastolic dysfunction. No regional wall motion abnormalities noted. Right Ventricle Normal size and thickness. Normal systolic function. Atria Normal left atrium. Normal right atrium. Normal atrial septum. Mitral Valve The mitral valve is structurally normal. No prolapse or stenosis seen. Tricuspid Valve Normal tricuspid valve. Trivial tricuspid valve insufficiency. Right ventricular systolic pressure estimated to be 14 mmHg. Aortic Valve Normal aortic valve. Trisinus/trileaflet aortic valve. Pulmonic Valve Normal pulmonic valve. Great Vessels Normal aortic root. Normal arch. Normal inferior vena cava. Inferior vena cava collapse with sniff. Pericardium/Pleural No pericardial effusion. Medication Diluted definity 3ml given slow IV push to enhance endocardial definition. MMode/2D Measurements & Calculations LVIDd: 5.6 cm IVSd: 1.2 cm Ao root diam: 3.2 cm LVIDs: 3.6 cm LVPWd: 1.2 cm LA dimension: 3.6 cm FS: 35.8 % LAV(MOD-bp): 64.7 ml LVAd ap4: 35.0 cm2 SV(MOD-sp4): 68.8 ml LAV(MOD-bp) Indexed: 27.0 ml/m2 EDV(MOD-sp4): 110.3 ml LAV(MOD-sp2): 62.9 ml EDV(sp4-el): 115.4 ml LAV(MOD-sp4): 58.4 ml LVAs ap4: 19.4 cm2 ESV(MOD-sp4): 41.4 ml ESV(sp4-el): 41.5 ml EF(MOD-sp4): 62.4 % EF(sp4-el): 64.0 % SV(sp4-el): 73.9 ml LA A4 area: 22.6 cm2 RA A4 area: 17.1 cm2 Doppler Measurements & Calculations MV E max stella: 111.1 cm/sec Ao V2 max: 148.4 cm/sec LV V1 max: 107.0 cm/sec MV A max stella: 88.5 cm/sec Ao max P.8 mmHg LV V1 max P.6 mmHg MV E/A: 1.3 TR max stella: 148.1 cm/sec TR max P.8 mmHg Interpretation Summary The estimated ejection fraction is 65 %. Stage 2 diastolic dysfunction. Right ventricular systolic pressure estimated to be 14 mmHg. Compared to echo report dated 11/23/2009,LV function has improved from 45% to 65%.. RVSP has decreased from 31 to 14 mm Hg. The study was technically difficult. Contrast injection was performed. Ordering Physician: Nahun Barlow D.O. Referring Physician: FER BETANCOURT Performed By: Mae Hardy, CURRYCS, RVT
--- NOTE | 2017-05-14 07:21 | CON.PCM_ITS ---
Reason for Consult Date of Consultation: 05/14/17 Reason for Consultation: Sepsis/acute respiratory failure History of Present Illness: Patient is a 61-year-old male, with a history as outlined below, who presented to the emergency department on May 14 with complaints of progressive shortness of breath and cough of approximately 3-4 days duration. The patient does have a reported history of COPD and obstructive sleep apnea, having been evaluated by Dr. Fung previously. The patient does not have a baseline supplemental oxygen requirement, per his account. It is unclear as to whether he has ever had pulmonary function testing completed previously. He has been noncompliant with use of nocturnal CPAP for approximately 3 years. He does have a smoking history of 1 pack per day ?45 years, having quit completely 5 months ago. The patient's cough is essentially been nonproductive in nature. He also reports the presence of dark, melanotic stools over the last 2-3 days. He does not recall ever having had a colonoscopy previously. He does not report high NSAID utilization in his home environment. However, it does appear that he is prescribed Mobic on an outpatient basis. The patient also has coronary artery disease and peripheral vascular disease, for which he is prescribed Plavix, aspirin and Cilostazol. On presentation to the emergency department, the patient was noted to be febrile , tachycardic and hypertensive. He was tachypneic with respiratory rates in the 30s and requiring 5 L/min of supplemental oxygen. Laboratory evaluation revealed elevated white blood cell count 13,000. He was also anemic with a hemoglobin of 6.3 and microcytic blood indices. Chemistry profile revealed evidence of questionable acute kidney injury with a creatinine of 3.25 and a serum bicarbonate level of 19. Serum lactate was mildly elevated to 2.4. Troponin was increased to 0.39. ABG obtained on 5 L/min of supplemental oxygen revealed a pH of 7.32 with a PCO2 of 30 and PO2 of 92. Plain film chest x-ray revealed evidence of bibasilar infiltrates and small bilateral pleural effusions. The patient was started on aerosol treatments along with broad- spectrum antibiotics. A type and screen was sent and the patient was ordered 2 units of packed red blood cells. The patient was initially started on BiPAP therapy due to work of breathing. He was subsequently transferred to the medical intensive care unit for ongoing management. Past Medical History Past Medical History (Chronic Problems): Chronic Problems Hypertension (Chronic) Diabetes mellitus type 2 in obese (Chronic) Allergies No Known Allergies Allergy (Verified 05/14/17 05:00) Home Medications: Ambulatory Orders Medication Instructions Recorded Albuterol Inhaler [Ventolin Hfa 1 - 2 puff INHALATION Q6H PRN PRN 05/14/17 (SP)] Allopurinol 300 mg PO DAILY 05/14/17 Aspirin 81 mg PO DAILY 05/14/17 Cilostazol 100 mg PO BID 05/14/17 Clopidogrel Bisulfate [Clopidogrel] 75 mg PO DAILY 05/14/17 Colchicine 0.6 mg PO DAILY PRN 05/14/17 Diazepam 10 mg PO BID PRN PRN 05/14/17 Insulin Aspart [Novolog Flexpen See Protocol SC TIDCM 05/14/17 ([facility])] Insulin Degludec [Tresiba 60 unit SC BID 05/14/17 Flextouch U-100] Lisinopril [Zestril] 40 mg PO DAILY 05/14/17 Meloxicam [Mobic] 15 mg PO DAILY 05/14/17 Metoprolol(XL)Succ [Toprol Xl 50 mg PO QHS 05/14/17 (Beta Vanesa)] Nitroglycerin [Nitrostat] 0.4 mg SUBLINGUAL Q5M PRN 05/14/17 Oxycodone [Oxyir] 5 mg PO BID PRN PRN 05/14/17 Probenecid 250 mg PO BID 05/14/17 Simvastatin 80 mg PO QHS 05/14/17 Smoking Status: Former smoker - *Family History Maternal History Items: COPD Paternal History Items: Cancer - leukemia, Hypertension Review of Systems Constitutional: Denies: Chills, Fever Eyes: Denies: Blurred vision, Double vision HEENT: Denies: Head Aches, Sinus Congestion, Sinus Drainage Cardiovascular: Denies: Chest Pain, Palpitations Respiratory: Reports: Cough, Shortness of Breath. Denies: Sputum production Gastrointestinal: Reports: Abdominal Pain, Diarrhea, Melena. 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 - Physical Exam General: Alert, Cooperative, - - Mildly distressed on BIPAP HEENT: Atraumatic, PERRLA, Normocephalic Oral: Dry Mucosa Neck: Supple, No Nodes, Trachea Midline Lungs: Diminished, Rhonchi, Short of Breath, Tachypneic, - - Conversational dyspnea is present. Cardiovascular: Normal S1, Normal S2, No murmurs, No rub noted, No Gallop, Tachycardic Abdomen: Soft, Non Tender, Hypoactive Bowel Sounds, Obese Extremities: No clubbing, No cyanosis, Diminished Peripheral Pulses, Edema Skin: No rashes, No breakdown Musculoskeletal: No Muscle Wasting Lymphatic: No Cervical, Supraclavicular, or Inguinal Adenopathy Neurological: Neuro grossly intact Psych/Mental Status: Normal Affect, Appropriate Vital Signs Temp Pulse Resp BP Pulse Ox 100.9 F H 141 H 36 H 129/70 H 99 05/14/17 06:35 05/14/17 06:35 05/14/17 06:35 05/14/17 06:35 05/14/17 06:35 Labs (Last 48 Hours) 05/14/17 05/14/17 05/14/17 05:10 05:10 05:10 WBC 12.9 H RBC 3.17 L Hgb 6.3 L Hct 22.7 L MCV 71.6 L MCH 19.9 L MCHC 27.8 L RDW 18.4 H RDW Differential 45.1 H Plt Count 407 MPV 10.8 Immature Gran % (Auto) 0.500 Neut % (Auto) 84.0 H Lymph % (Auto) 8.2 L [place]itt % (Auto) 6.9 Eos % (Auto) 0.2 Baso % (Auto) 0.2 Absolute Neuts (auto) 10.8 H Absolute Lymphs (auto) 1.05 Total Counted Not Reportable Differential Comment SCAN Polychromasia 1+ Hypochromasia 2+ Anisocytosis 1+ Microcytosis 1+ Specimen Type Sample Site pH Bicarbonate Actual POC Total CO2 Base Excess O2 Saturation ABG pCO2 ABG pO2 Donnie Test O2 Delivery Device Liter Flow Blood Gas Notified Whom Sodium 139 Potassium 4.8 Chloride 107 Carbon Dioxide 19.0 L Anion Gap 13 BUN 67 H Creatinine 3.25 H Estim Creat Clear Calc 26.63 Est GFR (MDRD) Af Amer 25 L Est GFR (MDRD) Non-Af 21 L BUN/Creatinine Ratio 20.6 H Glucose 80 Lactic Acid 2.4 H Calcium 8.3 L Troponin I 0.39 H B-Natriuretic Peptide Blood Type Antibody Screen Crossmatch 05/14/17 05/14/17 05/14/17 05:10 05:11 05:50 WBC RBC Hgb Hct MCV MCH MCHC RDW RDW Differential Plt Count MPV Immature Gran % (Auto) Neut % (Auto) Lymph % (Auto) [place]itt % (Auto) Eos % (Auto) Baso % (Auto) Absolute Neuts (auto) Absolute Lymphs (auto) Total Counted Differential Comment Polychromasia Hypochromasia Anisocytosis Microcytosis Specimen Type ART Sample Site L Radial pH 7.32 L Bicarbonate Actual 15.6 L POC Total CO2 16 Base Excess -11 L O2 Saturation 97 ABG pCO2 30.3 L ABG pO2 92 Donnie Test POS O2 Delivery Device Nasal Can Liter Flow 5.0 Blood Gas Notified Whom ED Sodium Potassium Chloride Carbon Dioxide Anion Gap BUN Creatinine Estim Creat Clear Calc Est GFR (MDRD) Af Amer Est GFR (MDRD) Non-Af BUN/Creatinine Ratio Glucose Lactic Acid Calcium Troponin I B-Natriuretic Peptide 35.2 Blood Type Pending Antibody Screen Pending Crossmatch See Detail Microbiology 05/14/17 04:58 Mucosa - Nasopharyngeal Influenza Types A,B Direct FA (ИВАН) - Final Clinical Impression(s) from Imaging Studies Chest X-Ray 05/14/17 04:53 IMPRESSION: There is suboptimal inspiration There are bibasilar infiltrates and small effusions larger on the RIGHT. There is NO pneumothorax. Heart is borderline enlarged. Electronically Signed: Ryan Mejia MD at 6:22 EST , Service support , Assessment/Plan Active and Suspected Problems Coronary artery disease (Acute) COPD with severe acute bronchitis (Acute) Acute on chronic blood loss anemia (Acute) Benign lung tumor s/p right lobectomy (Acute) Lower GI bleed (Acute) Acute hypoxic respiratory failure (Acute) Chronic left upper extremity numbness (Acute) Acute kidney injury (Acute) Non-STEMI (non-ST elevated myocardial infarction) (Acute) RECOMMENDATIONS: 1. Agree with transfusion of 2 units of packed red blood cells. Check H&H posttransfusion. 2. Continue PPI twice daily 3. Continue to trend troponins. Obtain echocardiogram and cardiology consultation. 4. Hold aspirin, Plavix and NSAIDs. 5. Continue broad-spectrum antibiotics, pending infectious workup. 6. Continue scheduled aerosol treatments. 7. Start IV Solu-Medrol 40 mg every 6 hours. 8. Start sliding scale insulin coverage and Accu-Cheks every 6 hours. 9. Continue BiPAP as tolerated. Repeat arterial blood gas. IMPRESSIONS: 1. Severe sepsis secondary to community-acquired pneumonia The patient has been adequately volume resuscitated at this time. Lactate is downtrending. Continue broad-spectrum antibiotics, pending infectious workup. Check strep and urine Legionella antigens. Obtain and send sputum for culture. Send full respiratory viral panel along with blood cultures. 2. Acute hypoxemic respiratory failure/questionable COPD with exacerbation Continue BiPAP therapy as tolerated. Obtain repeat arterial blood gas accordingly. Continue scheduled aerosol treatments and IV Solu-Medrol 40 mg every 6 hours. Will attempt to obtain outside medical records from the office of Dr. Fung. Given the patient's tachypnea, if he does not respond to the use of noninvasive positive pressure ventilation and/or he becomes lethargic, would have a low threshold for intubation. 3. Microcytic anemia/chronic NSAID utilization Likely secondary to chronic gastrointestinal blood loss due to chronic NSAID utilization. The patient's aspirin and Plavix are currently on hold. Continue PPI twice daily. Transfuse 2 units of packed red blood cells and recheck H&H posttransfusion. 4. Acute kidney injury Unclear what the patient's baseline renal function is like. Place Hoff catheter and monitor urine output closely. No indication for renal replacement therapy at this time. 5. Troponin elevation/history of coronary artery disease status post PCI Likely secondary to demand ischemia in the setting of anemia and severe sepsis. Continue to trend troponins accordingly. Aspirin and Plavix are currently on hold. Cardiology has been consulted to evaluate patient. Echocardiogram is pending. 6. Personal history of obstructive sleep apnea, noncompliant with nocturnal PAP therapy The patient reports that he has been noncompliant with use of his home CPAP for multiple years. Following this hospitalization, it would be beneficial for a re -titration study to be completed. Close outpatient pulmonary follow-up is recommended. 7. Obesity/hypertension/history of lung tumor status post lobectomy/diabetes/ peripheral vascular disease Complicates care, management, recovery and prognosis. Continue Accu-Cheks and sliding scale insulin coverage every 6 hours. TIME: 60 minutes of critical care time, independent of procedures, was spent addressing the patient's severe sepsis, community-acquired pneumonia, acute respiratory failure, anemia, acute kidney injury, troponin elevation, review of all data and collaboration with the care team. ([id number]) Code Visit 9xxxx: [id number] Critical care first hour
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
[2017-05-14 08:44] LABS: Immature Platelet Fraction 4.9 % (1.0-7.9); RET-HE 15.3 pg (30-35); Reticulocyte Count 1.53 % (0.5-1.5)
[2017-05-14 08:46] LABS: Color, Urine Yellow (Yellow); Glucose, Dipstick Normal (Normal); Ketone-Dipstick Negative (Negative); Leukocyte Esterase-Dipstick Negative /ul (Negative); Nitrite-Dipstick Negative (Negative); Occult Blood-Urine 25 /ul (Negative); Protein-Dipstick 100 mg/dl (Negative); Urine Bilirubin Dipstick Negative (Negative); Urine Clarity Clear (Clear); Urine Urobilinogen Normal (Normal)
[2017-05-14 09:02] LABS: Ferritin 8 ng/mL (26-388); Iron 12 ug/dL (65-175); Iron Binding Capacity,Total 396 ug/dL (250-450)
[2017-05-14 09:09] LABS: Lactic Acid 2.1 mmol/L (0.4-2.0)
[2017-05-14 09:11] LABS: International Normalized Ratio 1.1; Partial Thromboplast Time 36.1 Seconds (24.1-36.2); Prothrombin Time (Protime)PT. 13.6 SECONDS (11.7-14.9)
[2017-05-14 09:15] LABS: Reflex Lactate? Y
[2017-05-14 09:19] LABS: Hemoglobin A1c 9.6 % (4.2-6.3)
[2017-05-14 09:27] LABS: AST(SGOT) 33 U/L (15-37); Alanine Aminotransfer ALT/SGPT 36 U/L (16-61); Albumin, Serum 2.8 g/dL (3.2-5.0); Alkaline Phosphatase 91 U/L (45-117); Bilirubin, Direct 0.07 mg/dL (0.00-0.30); Globulin 3.8 g/dL (2.2-4.2); Magnesium 1.6 mg/dL (1.6-2.6); Protein, Total 6.6 g/dL (6.4-8.2)
--- NOTE | 2017-05-14 09:35 | US_ITS ---
STUDY: RENAL ULTRASOUND - COMPLETE REASON FOR EXAM: Male, 61 years old. Renal failure. TECHNIQUE: Ultrasound evaluation of the kidneys was performed with real-time and static ibarra-scale imaging. COMPARISON: None. FINDINGS: RIGHT KIDNEY: Normal location of the right kidney, which is normal in size. The right kidney measures 9.4 cm x 4.9 cm x 4.8 cm. There is a normal cortex of the right kidney. The renal cortex measures 1.3 cm. There is no right renal mass or cyst. There are no right renal calculi. There is no right hydronephrosis. DISTAL RIGHT URETER: There is non-visualization of the distal right ureter. There is no demonstrated right ureterovesical junction calculus. There is no demonstrated right ureteral jet. LEFT KIDNEY: Normal location of the left kidney, which is normal in size. The left kidney measures 8.9 cm x 3.6 x 4.4 cm. There is a normal cortex of the left kidney. The renal cortex measures 1.1 cm. There is no left renal mass or cyst. There are no left renal calculi. There is no left hydronephrosis. DISTAL LEFT URETER: There is non-visualization of the distal left ureter. There is no demonstrated left ureterovesical junction calculus. There is no demonstrated left ureteral jet. BLADDER: A Hoff catheter is seen within the empty bladder. US/Kidney and Bladder IMPRESSION: Normal ultrasound of the kidneys. Electronically Signed: Herbert Carroll MD at 13:09 EST Tel [phone], Service support ,
[2017-05-14 10:09] LABS: M R Staph aureus DNA By PCR Negative (Negative); Probe Check PASS; Specimen Processing Control PASS
[2017-05-14 10:56] LABS: Allen Test POS; Base Excess -12 mmol/L (-2 to +2); Bicarbonate 13.6 mmol/L (22-26); Blood Gas Specimen Type ART; EPAP 6; FI02 30; IPAP 12; PO2 100 mmHG (75-100); RR 14; SITE L Radial; SO2 98 % (95-99); Time Given 1046; Total Carbon Dioxide 14 mmol/L; pCO2 23.5 mmHg (35-45); pH 7.37 (7.35-7.45)
[2017-05-14] MEDS: Acetaminophen 325 MG Tablet 650 MG PO (11:12)
[2017-05-14] MEDS: 0.9% NaCl Peripheral Flush Adult/Peds IV ×6 (11:13→23:05)
[2017-05-14] MEDS: Cefepime HCl 2 GM in 0.9% NS 100 ML Minibag Q8 IV (11:13)
--- NOTE | 2017-05-14 11:50 | CASEMGMT ---
DEVEN CM assessment completed, see link. DC PLAN: undetermined. Pt was independent @ home however will continue to follow for home oxygen or home health needs. -PT/OT ordered, will review evaluations when completed. Ant PATHAK RN ACM
[2017-05-14 12:01] LABS: Bedside Glucose 209 mg/dL (70-110)
[2017-05-14 12:15] LABS: Urine Sodium 86 mmol/L (Not Establ.)
[2017-05-14 12:27] LABS: Reflex Lactate? Y
--- NOTE | 2017-05-14 12:47 | PCM.CONS.C ---
Problem List (1) Non-STEMI (non-ST elevated myocardial infarction) Status: Acute (2) Coronary artery disease Status: Acute (3) Hypertension Status: Chronic Reason for Consult Date of Consultation: 05/14/17 Reason for Consultation: Non-STEMI, coronary artery disease status post stenting, hypertension, hypercholesterolemia, atrial fibrillation History of Present Illness: The patient is a 61 year old M, former patient of Dr. Loza's last seen on 06/14/2011. The patient has a history of hypertension, diabetic hypercholesterolemia, coronary disease status post angioplasty of the obtuse marginal branch and the LAD in 2003 at [facility]. 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 Repeat catheterization reportedly showed widely patent stents at that time. Patient was transferred to [facility] and underwent a partial lobectomy on the right side is apparently some tumor was impacting on the cardiac performance. According to the patient it was not diagnosed as cancer and he received no chemotherapy or x-ray therapy. Patient recently quit smoking less than 1 year ago after 40 [id number] smoking history. Patient was in normal health up until recently when he developed left arm numbness with associated chest pain. This appear to be relieved with sublingual nitroglycerin. In addition the patient has had progressively worsening shortness of breath, dyspnea on exertion, fevers and chills. Patient was found to be profoundly hypertensive upon arrival, and complained of black tarry stools as well. He was found to be anemic with a hemoglobin of 6.3 and is currently undergoing IV fluid resuscitation as well as 1 unit PRBC transfusion. He reports that he is on chronic aspirin Plavix therapy as well as peripheral vascular medications for peripheral vascular disease in his right and left lower extremity, right greater than left. He reports he has a 70% stenosis in his popliteal area and is seen by Dr. Shafer. Patient was transiently placed on BiPAP therapy and is currently off of that. He apparently developed atrial fibrillation and appears to be in sinus tachycardia at this time. His initial troponin was 0.39 is increased to 1.10. EKG demonstrates atrial fibrillation with rapid ventricular response, PVC, lateral ST segment depression. Appears to be in sinus tachycardia on the monitor. [] Past Medical History Allergies/Adverse Reactions: Allergies No Known Allergies Allergy (Verified 05/14/17 05:00) Home Medications: Ambulatory Orders Medication Instructions Recorded Albuterol Inhaler [Ventolin Hfa 1 - 2 puff INHALATION Q6H PRN PRN 05/14/17 (SP)] Allopurinol 300 mg PO DAILY 05/14/17 Aspirin 81 mg PO DAILY 05/14/17 Cilostazol 100 mg PO BID 05/14/17 Clopidogrel Bisulfate [Clopidogrel] 75 mg PO DAILY 05/14/17 Colchicine 0.6 mg PO DAILY PRN 05/14/17 Diazepam 10 mg PO BID PRN PRN 05/14/17 Insulin Aspart [Novolog Flexpen See Protocol SC TIDCM 05/14/17 ([facility])] Insulin Degludec [Tresiba 60 unit SC BID 05/14/17 Flextouch U-100] Lisinopril [Zestril] 40 mg PO DAILY 05/14/17 Meloxicam [Mobic] 15 mg PO DAILY 05/14/17 Metoprolol(XL)Succ [Toprol Xl 50 mg PO QHS 05/14/17 (Beta Vanesa)] Nitroglycerin [Nitrostat] 0.4 mg SUBLINGUAL Q5M PRN 05/14/17 Oxycodone [Oxyir] 5 mg PO BID PRN PRN 05/14/17 Probenecid 250 mg PO BID 05/14/17 Simvastatin 80 mg PO QHS 05/14/17 Past Medical History (Chronic Problems): Chronic Problems Hypertension (Chronic) Diabetes mellitus type 2 in obese (Chronic) Smoking Status: Former smoker Review of Systems - Review of Systems General: Denies: Fever, Night Sweats, Fatigue Cardiovascular: Reports: Chest Discomfort at Rest, Chest Discomfort with Exertion, Shortness of Breath at Rest, Shortness of Breath with Exertion. Denies: Chest Discomfort, Shortness of Breath, Orthopnea, PND, Peripheral Edema, Palpitations, Lightheadedness, Dizziness, Near Syncope, Syncope Respiratory: Denies: Cough, Sputum Production, Hemoptysis Gastrointestinal: Denies: Hematemesis, Hematochezia, Melena Genitourinary: Denies: Dysuria, Hematuria Skin: Denies: Rash Subjectve: Patient laying in bed, off of BiPAP, positive conversational dyspnea. Objective: Vital Signs Temp Pulse Resp BP Pulse Ox 102.3 F H 122 H 32 H 131/60 H 96 05/14/17 09:49 05/14/17 10:45 05/14/17 10:45 05/14/17 09:49 05/14/17 11:00 Oxygen Flow Rate 3 Oxygen Delivery Method Nasal Cannula Weight: 242 lb Body Mass Index (BMI) 31.9 Intake and Output for Last 24 Hours 05/12/17 05/13/17 05/14/17 23:59 23:59 23:59 Intake Total 852 / 852 Output Total 1150 / 1150 Balance -298 / -298 General: Awake, Alert, Oriented x 3 HEENT: PERRL, EOMI, Sclera Non Icteric Neck: Supple, Good ROM, No Lymph Node Enlargement Lungs: Diminished Right Base, Rales - Right Base Cardiovascular: Regular Rhythm, Normal S1, Normal S2, No Murmurs, No Rubs, No Gallops Vascular: No Carotid Bruits, Normal Femoral Pulses, Normal Radial Pulses, Normal Dorsalis Pedal Pulse, Normal Posterior Tibial Pulses Abdomen: Bowel Sounds Present, Soft, Non Tender, No HSM, No Organomegaly Extremities: No Cyanosis, No Clubbing, No edema Neurological: No Focal Motor or Sensory Deficit 05/14/17 08:10: Lactic Acid 2.1 H 05/14/17 08:20: Iron 12 L, TIBC 396, Iron Saturation 3.0 L, Ferritin 8 L 05/14/17 08:20: Uric Acid 5.0, Magnesium 1.6, Total Bilirubin 0.20, Direct Bilirubin 0.07, Troponin I 1.10 H* 05/14/17 08:20: Phosphorus 2.0 L 05/14/17 08:20: Hemoglobin A1c 9.6 H 05/14/17 08:30: Urine Color Yellow, Urine Clarity Clear, Urine pH 6.0, Ur Specific [place] 1.010, Urine Protein 100 H, Urine Glucose (UA) Normal, Urine Ketones Negative, Urine Occult Blood 25 H, Urine Nitrite Negative, Urine Bilirubin Negative, Urine Urobilinogen Normal, Ur Leukocyte Esterase Negative 05/14/17 10:51: pH 7.37, Bicarbonate Actual 13.6 L, POC Total CO2 14, Base Excess -12 L, O2 Saturation 98, ABG pCO2 23.5 L, ABG pO2 100, Donnie Test POS Rhythm: EKG: Repeat EKG pending ECHO: Pending Stress Test: Cardiac Cath: PCI: CT Surgery: Holter monitor: EPS: PPM: CXR: Chest CT Scan: Assessment/Plan 1. Coronary artery disease: The patient presented with severe hypertension with associated chest pain and numbness down his left arm, relieved with sublingual nitroglycerin and blood pressure control. He was also profoundly anemic at hemoglobin is 6.3, and requires least 1 unit of PRBC at this time. Would recommend keeping his hemoglobin above 8.0 at the very least. Would recommend holding his Plavix at this time and continuing baby aspirin going forward. Would also recommend PPI therapy in the event that he may have an undiagnosed ulcer. Patient appears to be back in normal sinus rhythm/sinus tachycardia and would recommend EKG to confirm this. Would recommend a 2D echo with Doppler to document his LV function. Would not recommend catheterization at this time as he has no evidence of ST elevation or anginal symptoms or unstable arrhythmias. I would however recommend that he undergo a noninvasive nuclear stress test once he has recovered to determine if he has any areas of ischemia particularly of the anterior or lateral territories consistent with his previous stents. In addition the patient was on Zestoretic 20/12.5 mg p.o. daily in the distant past, would recommend restarting this once he is hemodynamically stable. 2. Atrial fibrillation: The patient appears to have converted to sinus tachycardia. Continue baby aspirin. Given his GI bleeding would not recommend heparin at this time. Patient's last medicine list as of 2011 showed that he was on Toprol-XL 50 mg p.o. daily. Would recommend initiating Toprol-XL 25 mg p.o. daily and titrating up from there. Her graft would recommend keeping his potassium above 4.0 and his magnesium of 2.0. 3. Hyperlipidemia: Patient was on TriCor therapy in the past, and is currently on atorvastatin. Continue atorvastatin. 4. Thank you very much for the opportunity to put dissipate in the cardiac care of your patient. Consultation time took place between 12 and 12:[address] Barlow. Code Visit Inpatient E&M: 43586 Init Hosp L2
--- NOTE | 2017-05-14 14:55 | CON.PCM_ITS ---
Consultation - Renal 05/14/17 PCP/ Referring MD: Requesting physician: Alena Marcum Primary care physician: Caesar Chavez Reason for Consultation:: renal failure - History of Present Illness History of Present Illness: The patient is a 61 y/o M with history of DM type 2, HTN, COPD, tobacco use history, coronary vascular disease s/p stent in 2003, PAD with 70% blockage in RLE with claudication followed by Dr. Shafer presents to the emergency department with shortness of breath with nonproductive cough past 4 days. He had fever, chills day prior to admit with diarrhea x2. He has a history of noncompliance with his CPAP machine at home with LADARIUS. He has a history of pneumonia at the time he had rt lung lobectomy, thoracotomy for a benign tumor in 2009. The patient was hypoxic at 86% on room air currently on BIPAP. He was empirically treated for pneumonia. Temp was as high as 103. He tested positive for influenza B. He has generalized malaise, myalgias. Denied sick contacts at home. Consulted for renal failure. Creatinine on admit 3.25 today. Denied change in urine output at home. He has a history of poor compliance with diabetes. Hgb A1C was 9.6. Creatinine was 2.33 eGFR 35cc/min in October 2015 on review of old records from PCP office. Renal US showed RK 9.4cm, LK 8.9cm with no hydronephrosis. UA showed proteinuria and trace hematuria. FeNa >1%, No recent iv contrast exposure. BP low. No family history for kidney disease. He has not seen a chair car driver in the past. Denied history of kidney trouble in the past. Hgb was low at 6.3g on admit received prbc. Iron stores were low with iron at 12 ferritin 8.0. Denied hematochezia, melena, hemoptysis, epistaxis. He is on plavix with hx coronary stent, pafib. He has a history of gout on mobic, zestril at home, both discontinued on admit. - Allergies Allergies: Allergies No Known Allergies Allergy (Verified 05/14/17 05:00) - Current Medications Current Medications: Current Medications Acetaminophen (Tylenol) 650 mg PO Q4H PRN PRN PRN Reason: FEVER Last Admin: 05/14/17 11:12 Dose: 650 mg Al Hydroxide/Mg Hydroxide (Mylanta Ii) 30 ml PO Q6H PRN PRN PRN Reason: Gastric Burning Albuterol Sulfate (Ventolin Aerosols) 2.5 mg INHALATION Q2H PRN PRN PRN Reason: SHORTNESS OF BREATH Albuterol/Ipratropium (Duoneb) 3 ml INHALATION Q4H.RT [facility] Last Admin: 05/14/17 14:35 Dose: 3 ml Atorvastatin Calcium (Lipitor) 40 mg PO DAILY@2200 [facility] Dextrose (D50w Syringe) 0 gm IV X1 PRN; Protocol PRN Reason: Hypoglycemia Docusate Sodium (Colace) 200 mg PO BID PRN PRN PRN Reason: Constipation Glucagon () 1 mg IM .X1 PRN PRN Reason: Hypoglycemia Pantoprazole Sodium 40 mg/ (Sodium Chloride) 110 mls @ 330 mls/hr IV Q12 [facility] Cefepime HCl 2 gm/ Sodium (Chloride) 100 mls @ 200 mls/hr IV Q24 [facility] Last Admin: 05/14/17 11:13 Dose: 200 mls/hr Insulin Aspart (Novolog Flexpen (Bkc)) 0 units SC Q6H ZACH PRN Reason: Protocol Last Admin: 05/14/17 11:46 Dose: 4 u Labetalol HCl (Trandate) 10 - 20 mg IV Q4H PRN PRN Reason: sys>150diast>85 Methylprednisolone (Solu-Medrol) 40 mg IV Q6 [facility] Last Admin: 05/14/17 11:13 Dose: 40 mg Metoprolol Succinate (Toprol Xl (Beta Vanesa)) 25 mg PO DAILY [facility] Ondansetron HCl (Zofran) 4 mg IV Q8H PRN PRN PRN Reason: NAUSEA Oseltamivir Phosphate (Tamiflu) 75 mg PO BID [facility] Stop: 05/19/17 10:01 Oxycodone HCl (Oxyir) 5 mg PO Q4H PRN PRN PRN Reason: Moderate Pain (pain scale 4-5) Sodium Chloride () 5 - 30 ml IV UD PRN PRN Reason: SALINE FLUSH Last Admin: 05/14/17 11:13 Dose: 20 ml Tamsulosin HCl (Flomax) 0.4 mg PO DAILY@1730 [facility] - Past Medical History Past Medical History (Chronic Problems): Chronic Problems Hypertension (Chronic) Diabetes mellitus type 2 in obese (Chronic) - Past Surgical History Surgical History: angioplasty - stent x2 2003, - - rt lung thoracotomy, lobectomy 2009 for benign tumor - Social History Smoking Status: Former smoker - Family History Maternal History Items: COPD Paternal History Items: Cancer - leukemia, Hypertension Review of Systems Constitutional: Reports: Chills, Fever, Weakness, Fatigue. Denies: Anorexia Eyes: Denies: Vision Change HEENT: Denies: Head Aches Respiratory: Reports: Cough - nonproductive, Shortness of Breath, Shortness of breath at rest, Wheezing, - - sleep apnea, noncompliant with CPAP. Denies: Hemoptysis Gastrointestinal: Reports: Diarrhea - x2. Denies: Abdominal Pain, Nausea, Vomiting Genitourinary: Reports: - - denies change in urine output. Denies: Dysuria Musculoskeletal: Reports: Muscle pain, - - malaise. Denies: Back Pain Skin: Denies: Rash Neurological: Reports: - - generalized weakness. Denies: Headaches, Tremor, Seizures Psychiatric: Denies: Depression Endocrine: Denies: Polydipsia, Polyuria Hematologic/ Lymphatic: Reports: Anemia. Denies: Hx of blood clot, Hx of blood transfusion Patient Problems: Active and Suspected Problems Coronary artery disease (Acute) COPD with severe acute bronchitis (Acute) Acute on chronic blood loss anemia (Acute) Benign lung tumor s/p right lobectomy (Acute) Lower GI bleed (Acute) Acute hypoxic respiratory failure (Acute) Chronic left upper extremity numbness (Acute) Acute kidney injury (Acute) Non-STEMI (non-ST elevated myocardial infarction) (Acute) - Physical Exam General: Alert, Oriented x3, Cooperative, Well developed, Well nourished, - - on BIPAP, tachycardic, tachyneic HEENT: PERRLA, EOMI Oral: Dry Mucosa Neck: Supple, No JVD Cardiovascular: Tachycardic Abdomen: Bowel Sounds Present, Soft, Non Tender, Non-Distended, Obese Extremities: No edema, Diminished Peripheral Pulses - rt pedal, pulse intact left pedal Skin: No rashes Musculoskeletal: No Muscle Wasting Neurological: Cranial nerves II-XII grossly intact, - - no tremor Psych/Mental Status: Appropriate, Alert and oriented to time, place, person, mood and affect Vital Signs Temp Pulse Resp BP Pulse Ox 100.4 F H 103 H 17 112/59 L 98 05/14/17 13:00 05/14/17 13:00 05/14/17 13:00 05/14/17 13:00 05/14/17 13:00 Oxygen Flow Rate 3 Oxygen Delivery Method Nasal Cannula Weight: 109.769 kg Body Mass Index (BMI) 31.9 Intake and Output for Last 24 Hours 05/12/17 05/13/17 05/14/17 23:59 23:59 23:59 Intake Total 1252 / 1252 Output Total 1150 / 1150 Balance 102 / 102 Microbiology Past 72 Hours 05/14/17 07:50 Respiratory Panel (PCR) - Final Mucosa - Nasopharyngeal Influenzae B 05/14/17 08:30 Legionella Antigen - Final Urine Catheter - Hoff 05/14/17 08:27 Streptococcus pneumoniae Antigen (M - Final Urine Catheter - Hoff Laboratory Tests Past 24 Hrs 05/14/17 05/14/17 05/14/17 08:10 08:20 08:20 Immature Plt Fraction 4.9 Retic Count 1.53 H Immature Retic Fraction 9.70 Retic Hgb Equivalent 15.3 L Specimen Type Sample Site pH Bicarbonate Actual POC Total CO2 Base Excess O2 Saturation O2 % ABG pCO2 ABG pO2 Donnie Test Respiration Rate O2 Delivery Device EPAP IPAP Blood Gas Notified Whom Blood Gas Notified Time Hemoglobin A1c Lactic Acid 2.1 H Uric Acid Phosphorus Magnesium Iron 12 L TIBC 396 Iron Saturation 3.0 L Ferritin 8 L Total Bilirubin Direct Bilirubin AST ALT Alkaline Phosphatase Troponin I Total Protein Albumin Globulin PSA Screen Urine Color Urine Clarity Urine pH Ur Specific [place] Urine Protein Urine Glucose (UA) Urine Ketones Urine Occult Blood Urine Nitrite Urine Bilirubin Urine Urobilinogen Ur Leukocyte Esterase Ur Random Sodium Urine Creatinine MRSA (PCR) 05/14/17 05/14/17 05/14/17 08:20 08:20 08:20 Immature Plt Fraction Retic Count Immature Retic Fraction Retic Hgb Equivalent Specimen Type Sample Site pH Bicarbonate Actual POC Total CO2 Base Excess O2 Saturation O2 % ABG pCO2 ABG pO2 Donnie Test Respiration Rate O2 Delivery Device EPAP IPAP Blood Gas Notified Whom Blood Gas Notified Time Hemoglobin A1c Lactic Acid Uric Acid 5.0 Phosphorus 2.0 L Magnesium 1.6 Iron TIBC Iron Saturation Ferritin Total Bilirubin 0.20 Direct Bilirubin 0.07 AST 33 ALT 36 Alkaline Phosphatase 91 Troponin I 1.10 H* Total Protein 6.6 Albumin 2.8 L Globulin 3.8 PSA Screen Urine Color Urine Clarity Urine pH Ur Specific [place] Urine Protein Urine Glucose (UA) Urine Ketones Urine Occult Blood Urine Nitrite Urine Bilirubin Urine Urobilinogen Ur Leukocyte Esterase Ur Random Sodium Urine Creatinine MRSA (PCR) Negative 05/14/17 05/14/17 05/14/17 08:20 08:20 08:30 Immature Plt Fraction Retic Count Immature Retic Fraction Retic Hgb Equivalent Specimen Type Sample Site pH Bicarbonate Actual POC Total CO2 Base Excess O2 Saturation O2 % ABG pCO2 ABG pO2 Donnie Test Respiration Rate O2 Delivery Device EPAP IPAP Blood Gas Notified Whom Blood Gas Notified Time Hemoglobin A1c 9.6 H Lactic Acid Uric Acid Phosphorus Magnesium Iron TIBC Iron Saturation Ferritin Total Bilirubin Direct Bilirubin AST ALT Alkaline Phosphatase Troponin I Total Protein Albumin Globulin PSA Screen 1.20 Urine Color Yellow Urine Clarity Clear Urine pH 6.0 Ur Specific [place] 1.010 Urine Protein 100 H Urine Glucose (UA) Normal Urine Ketones Negative Urine Occult Blood 25 H Urine Nitrite Negative Urine Bilirubin Negative Urine Urobilinogen Normal Ur Leukocyte Esterase Negative Ur Random Sodium Urine Creatinine MRSA (PCR) 05/14/17 05/14/17 05/14/17 08:30 08:30 10:51 Immature Plt Fraction Retic Count Immature Retic Fraction Retic Hgb Equivalent Specimen Type ART Sample Site L Radial pH 7.37 Bicarbonate Actual 13.6 L POC Total CO2 14 Base Excess -12 L O2 Saturation 98 O2 % 30 ABG pCO2 23.5 L ABG pO2 100 Donnie Test POS Respiration Rate 14 O2 Delivery Device Bi / C PAP EPAP 6 IPAP 12 Blood Gas Notified Whom ICU MD Blood Gas Notified Time 1046 Hemoglobin A1c Lactic Acid Uric Acid Phosphorus Magnesium Iron TIBC Iron Saturation Ferritin Total Bilirubin Direct Bilirubin AST ALT Alkaline Phosphatase Troponin I Total Protein Albumin Globulin PSA Screen Urine Color Urine Clarity Urine pH Ur Specific [place] Urine Protein Urine Glucose (UA) Urine Ketones Urine Occult Blood Urine Nitrite Urine Bilirubin Urine Urobilinogen Ur Leukocyte Esterase Ur Random Sodium 86 Urine Creatinine 63.00 MRSA (PCR) 05/14/17 13:45 Immature Plt Fraction Retic Count Immature Retic Fraction Retic Hgb Equivalent Specimen Type Sample Site pH Bicarbonate Actual POC Total CO2 Base Excess O2 Saturation O2 % ABG pCO2 ABG pO2 Donnie Test Respiration Rate O2 Delivery Device EPAP IPAP Blood Gas Notified Whom Blood Gas Notified Time Hemoglobin A1c Lactic Acid Uric Acid Phosphorus Magnesium Iron TIBC Iron Saturation Ferritin Total Bilirubin Direct Bilirubin AST ALT Alkaline Phosphatase Troponin I 1.86 H* Total Protein Albumin Globulin PSA Screen Urine Color Urine Clarity Urine pH Ur Specific [place] Urine Protein Urine Glucose (UA) Urine Ketones Urine Occult Blood Urine Nitrite Urine Bilirubin Urine Urobilinogen Ur Leukocyte Esterase Ur Random Sodium Urine Creatinine MRSA (PCR) POC Glucose 05/14/17 11:45 POC Glucose 209 H Clinical Impression(s) from Imaging Studies Chest X-Ray 05/14/17 04:53 IMPRESSION: There is suboptimal inspiration There are bibasilar infiltrates and small effusions larger on the RIGHT. There is NO pneumothorax. Heart is borderline enlarged. Electronically Signed: Ryan Mejia MD at 6:22 EST , Service support , Renal Ultrasound 05/14/17 09:35 IMPRESSION: Normal ultrasound of the kidneys. Electronically Signed: Herbert Carroll MD at 13:09 EST Tel [phone], Service support , Assessment/Plan Active and Suspected Problems Coronary artery disease (Acute) COPD with severe acute bronchitis (Acute) Acute on chronic blood loss anemia (Acute) Benign lung tumor s/p right lobectomy (Acute) Lower GI bleed (Acute) Acute hypoxic respiratory failure (Acute) Chronic left upper extremity numbness (Acute) Acute kidney injury (Acute) Non-STEMI (non-ST elevated myocardial infarction) (Acute) 1. Acute on CKD stage 3 vs progressive diabetic nephropathy. Creatinine 2.33 eGFR 35cc/min in October 2015 now at 3.6. Will continue to monitor renal function while on iv hydration. Underlying diabetic nephropathy UPCR 1.88g . Agree with holding ACEi and Mobic due to renal failure. Renal US no hydro. No urgent need for dialysis. 2. DM type 2 Hx noncompliance with diabetes A1C elevated at 9.8. 3. Acute respiratory distress from pneumonia, influenza B on iv antibx, BIPAP support. Pulmonary following 4. Iron def anemia hgb 6.3g s/p prbc. IV iron. 5. Check PTH, vit D. 6. LADARIUS noncompliant with CPAP 7. COPD with hx tobacco use. 8. Morbid Obesity with wt loss hx past year 9. PAD with claudication RLE followed by DR. Shafer as outpt 10 CAD s/p coronary stent 2003, +troponin, cardiology following. 11. gout on probenecid and allopurinol at home. Would stop probenecid due to renal failure and renal adjust allopurinol 12. Lactic acidosis with metabolic acidosis r/o sepsis 13. Avoid nephrotoxins, renal dose antibx. thank you, DW hospitalist, CCM
[2017-05-14] MEDS: Metoprolol(XL)Succ 25 MG Tablet PO (16:00)
[2017-05-14] MEDS: Oseltamivir Phosphate 30 MG Capsule PO (16:01)
[2017-05-14 16:03] LABS: Protein, Urine (Random) 119.1 mg/dL (<11.9)
[2017-05-14] MEDS: Tamsulosin HCl 0.4 MG Capsule PO (17:26)
[2017-05-14 17:40] LABS: Bedside Glucose 291 mg/dL (70-110)
[2017-05-14] MEDS: Atorvastatin Calcium 40 MG Tablet PO (21:06)
[2017-05-14 21:40] LABS: Hemoglobin 7.6 g/dl (13.0-16.5)
[2017-05-14 23:21] LABS: Bedside Glucose 292 mg/dL (70-110)
[2017-05-15] VITALS (37 sets, daily range): BP systolic 86–140; BP diastolic 47–78; PULSE 72–112; RESP 14–25; TEMP 36–36.9; O2SAT 94–99
[2017-05-15] MEDS: Ipratropium/Albuterol Sulfate 3 ML AMPUL.NEB INHALATION ×4 (03:39→19:21)
[2017-05-15 03:56] LABS: Hematocrit 27.4 % (40-54); Hemoglobin 8.6 g/dl (13.0-16.5); Mean Corp Hgb Conc 31.4 g/gl (32-36); Mean Corpuscular Volume 76.3 fL (80-94); Mean Platelet Vol. 11.5 fl (6.2-12.0); Platelet Count 308 K/mm3 (150-450); RBC Distribution Width CV 19.9 % (11.6-14.6); RBC Distribution Width SD 52.4 fl (35.1-43.9); Red Blood Count 3.59 M/mm3 (4.6-6.2); White Blood Count 20.4 K/mm3 (4.4-11.0)
[2017-05-15 03:57] LABS: Scan Indicated on CBC? Y/N NO
[2017-05-15 04:11] LABS: ALB/GLOB Ratio 0.7 RATIO (0.9-2.4); AST(SGOT) 26 U/L (15-37); Alanine Aminotransfer ALT/SGPT 35 U/L (16-61); Albumin, Serum 2.7 g/dL (3.2-5.0); Alkaline Phosphatase 80 U/L (45-117); Anion Gap 13 (5-15); BUN 74 mg/dL (7-18); Calcium,Total 7.5 mg/dL (8.5-10.1); Chloride 109 mmol/L (98-107); Creatinine, Serum 3.52 mg/dL (0.70-1.30); EST Glomerular Filtration Rate 19 mL/min (>60); Est Glom Filt Rate - Afr Amer 23 mL/min (>60); Estimated Creatinine Clearance 24.59 ml/min; Globulin 4.1 g/dL (2.2-4.2); Glucose 280 mg/dL (74-106); Magnesium 2.5 mg/dL (1.6-2.6); Phosphorus 6.4 mg/dL (2.5-4.9); Potassium 5.2 mmol/L (3.5-5.1); Protein, Total 6.8 g/dL (6.4-8.2); Sodium Level 139 mmol/L (136-145)
[2017-05-15] MEDS: 0.9% NaCl Peripheral Flush Adult/Peds IV ×2 (05:37→22:34)
[2017-05-15 05:46] LABS: Bedside Glucose 281 mg/dL (70-110)
--- NOTE | 2017-05-15 05:55 | RAD_ITS ---
STUDY: X-RAY CHEST REASON FOR EXAM: Male, 61 years old. Shortness of breath TECHNIQUE: Single frontal view COMPARISON: 05/14/2017 FINDINGS: There is suboptimal inspiration. There are bibasilar infiltrates greater on the RIGHT. There is a small RIGHT pleural effusion. There is NO pneumothorax. There is borderline enlarged. Normal mediastinum and elizabeth. Normal visualized pulmonary arteries. Normal visualized aortic arch and descending thoracic aorta. Normal visualized thoracic spine. Normal visualized ribs, clavicles, and shoulders. There is no demonstrated abnormality of the visualized soft tissue structures of the upper abdomen. RAD/Chest 1 View (Portable) IMPRESSION: There is suboptimal inspiration. There are bibasilar infiltrates greater on the RIGHT. There is a small RIGHT pleural effusion. There is NO pneumothorax. There is borderline enlarged. Electronically Signed: Ryan Mejia MD at 4:30 EST , Service support ,
[2017-05-15] MEDS: CHLORHEXIDINE GLUC 2% CLOTH 1 EACH TOWELETTE TOPICAL (06:16)
--- NOTE | 2017-05-15 07:05 | PCM.PN.INT ---
Subjective: The patient was seen and examined at the bedside this morning. Events from the last 24 hours have been reviewed. The patient is currently afebrile, hemodynamically stable and maintaining appropriate oxygen saturations on 1 L/min via nasal cannula. The patient did well overnight on BiPAP. Reports that he rested well overnight. He does endorse interval improvement in his breathing quality. The patient is overall net +783 mL's for the admission. He did receive 1 additional unit of packed red blood cells and his hemoglobin this morning was noted to be 8.6 g/dL. In total he has received 3 units of packed red blood cells since his admission to the hospital. Objective: The patient's most recent lab work, culture data and imaging studies have all been personally reviewed. Infectious workup has been revealing only for the presence of influenza B. Surface echocardiogram revealed normal LV size and thickness with a preserved ejection fraction of 65%. Nevertheless, there was evidence of stage II diastolic dysfunction with a right ventricular systolic pressure estimated to be 14 mmHg. Renal ultrasound was unremarkable. General: Alert, Cooperative, No apparent distress HEENT: Atraumatic, PERRLA, Normocephalic Oral: Moist Mucosa Neck: Supple, No Nodes, Trachea Midline Lungs: Diminished, - - Bilateral expiratory wheezes with prolonged expiratory phase. Cardiovascular: Regular rate, Regular Rhythm, Normal S1, Normal S2, No murmurs Abdomen: Bowel Sounds Present, Soft, Non Tender, Obese Extremities: No clubbing, No cyanosis, Diminished Peripheral Pulses, - - Trace edema Skin: No rashes, No breakdown Musculoskeletal: No Muscle Wasting Lymphatic: No Cervical, Supraclavicular, or Inguinal Adenopathy Neurological: Neuro grossly intact Psych/Mental Status: Normal Affect, Appropriate Vital Signs Temp Pulse Resp BP Pulse Ox 97.4 F L 88 16 116/67 96 05/15/17 06:00 05/15/17 06:00 05/15/17 06:00 05/15/17 06:00 05/15/17 06:00 Oxygen Flow Rate 1 Oxygen Delivery Method Nasal Cannula Weight: 247 lb 9.266 oz Body Mass Index (BMI) 31.9 Intake and Output for Last 24 Hours 05/13/17 05/14/17 05/15/17 23:59 23:59 23:59 Intake Total 2568 / 2568 640 / 640 Output Total 2075 / 2075 350 / 350 Balance 493 / 493 290 / 290 Labs (Last 48 Hours) 05/14/17 05/14/17 05/14/17 08:10 08:20 08:20 WBC RBC Hgb Hct MCV MCH MCHC RDW RDW Differential Plt Count MPV Immature Plt Fraction 4.9 Retic Count 1.53 H Immature Retic Fraction 9.70 Retic Hgb Equivalent 15.3 L Specimen Type Sample Site pH Bicarbonate Actual POC Total CO2 Base Excess O2 Saturation O2 % ABG pCO2 ABG pO2 Donnie Test Respiration Rate O2 Delivery Device EPAP IPAP Blood Gas Notified Whom Blood Gas Notified Time Sodium Potassium Chloride Carbon Dioxide Anion Gap BUN Creatinine Estim Creat Clear Calc Est GFR (MDRD) Af Amer Est GFR (MDRD) Non-Af BUN/Creatinine Ratio Glucose Hemoglobin A1c Lactic Acid 2.1 H Uric Acid Calcium Phosphorus Magnesium Iron 12 L TIBC 396 Iron Saturation 3.0 L Ferritin 8 L Total Bilirubin Direct Bilirubin AST ALT Alkaline Phosphatase Troponin I Total Protein Albumin Globulin Albumin/Globulin Ratio PSA Screen Urine Color Urine Clarity Urine pH Ur Specific [place] Urine Protein Urine Glucose (UA) Urine Ketones Urine Occult Blood Urine Nitrite Urine Bilirubin Urine Urobilinogen Ur Leukocyte Esterase U Random Total Protein Ur Random Sodium Urine Creatinine MRSA (PCR) POC Glucose 05/14/17 05/14/17 05/14/17 08:20 08:20 08:20 WBC RBC Hgb Hct MCV MCH MCHC RDW RDW Differential Plt Count MPV Immature Plt Fraction Retic Count Immature Retic Fraction Retic Hgb Equivalent Specimen Type Sample Site pH Bicarbonate Actual POC Total CO2 Base Excess O2 Saturation O2 % ABG pCO2 ABG pO2 Donnie Test Respiration Rate O2 Delivery Device EPAP IPAP Blood Gas Notified Whom Blood Gas Notified Time Sodium Potassium Chloride Carbon Dioxide Anion Gap BUN Creatinine Estim Creat Clear Calc Est GFR (MDRD) Af Amer Est GFR (MDRD) Non-Af BUN/Creatinine Ratio Glucose Hemoglobin A1c Lactic Acid Uric Acid 5.0 Calcium Phosphorus 2.0 L Magnesium 1.6 Iron TIBC Iron Saturation Ferritin Total Bilirubin 0.20 Direct Bilirubin 0.07 AST 33 ALT 36 Alkaline Phosphatase 91 Troponin I 1.10 H* Total Protein 6.6 Albumin 2.8 L Globulin 3.8 Albumin/Globulin Ratio PSA Screen Urine Color Urine Clarity Urine pH Ur Specific [place] Urine Protein Urine Glucose (UA) Urine Ketones Urine Occult Blood Urine Nitrite Urine Bilirubin Urine Urobilinogen Ur Leukocyte Esterase U Random Total Protein Ur Random Sodium Urine Creatinine MRSA (PCR) Negative POC Glucose 05/14/17 05/14/17 05/14/17 08:20 08:20 08:30 WBC RBC Hgb Hct MCV MCH MCHC RDW RDW Differential Plt Count MPV Immature Plt Fraction Retic Count Immature Retic Fraction Retic Hgb Equivalent Specimen Type Sample Site pH Bicarbonate Actual POC Total CO2 Base Excess O2 Saturation O2 % ABG pCO2 ABG pO2 Donnie Test Respiration Rate O2 Delivery Device EPAP IPAP Blood Gas Notified Whom Blood Gas Notified Time Sodium Potassium Chloride Carbon Dioxide Anion Gap BUN Creatinine Estim Creat Clear Calc Est GFR (MDRD) Af Amer Est GFR (MDRD) Non-Af BUN/Creatinine Ratio Glucose Hemoglobin A1c 9.6 H Lactic Acid Uric Acid Calcium Phosphorus Magnesium Iron TIBC Iron Saturation Ferritin Total Bilirubin Direct Bilirubin AST ALT Alkaline Phosphatase Troponin I Total Protein Albumin Globulin Albumin/Globulin Ratio PSA Screen 1.20 Urine Color Yellow Urine Clarity Clear Urine pH 6.0 Ur Specific [place] 1.010 Urine Protein 100 H Urine Glucose (UA) Normal Urine Ketones Negative Urine Occult Blood 25 H Urine Nitrite Negative Urine Bilirubin Negative Urine Urobilinogen Normal Ur Leukocyte Esterase Negative U Random Total Protein Ur Random Sodium Urine Creatinine MRSA (PCR) POC Glucose 05/14/17 05/14/17 05/14/17 08:30 08:30 08:30 WBC RBC Hgb Hct MCV MCH MCHC RDW RDW Differential Plt Count MPV Immature Plt Fraction Retic Count Immature Retic Fraction Retic Hgb Equivalent Specimen Type Sample Site pH Bicarbonate Actual POC Total CO2 Base Excess O2 Saturation O2 % ABG pCO2 ABG pO2 Donnie Test Respiration Rate O2 Delivery Device EPAP IPAP Blood Gas Notified Whom Blood Gas Notified Time Sodium Potassium Chloride Carbon Dioxide Anion Gap BUN Creatinine Estim Creat Clear Calc Est GFR (MDRD) Af Amer Est GFR (MDRD) Non-Af BUN/Creatinine Ratio Glucose Hemoglobin A1c Lactic Acid Uric Acid Calcium Phosphorus Magnesium Iron TIBC Iron Saturation Ferritin Total Bilirubin Direct Bilirubin AST ALT Alkaline Phosphatase Troponin I Total Protein Albumin Globulin Albumin/Globulin Ratio PSA Screen Urine Color Urine Clarity Urine pH Ur Specific [place] Urine Protein Urine Glucose (UA) Urine Ketones Urine Occult Blood Urine Nitrite Urine Bilirubin Urine Urobilinogen Ur Leukocyte Esterase U Random Total Protein 119.1 H Ur Random Sodium 86 Urine Creatinine 63.00 MRSA (PCR) POC Glucose 05/14/17 05/14/17 05/14/17 10:51 11:45 13:45 WBC RBC Hgb Hct MCV MCH MCHC RDW RDW Differential Plt Count MPV Immature Plt Fraction Retic Count Immature Retic Fraction Retic Hgb Equivalent Specimen Type ART Sample Site L Radial pH 7.37 Bicarbonate Actual 13.6 L POC Total CO2 14 Base Excess -12 L O2 Saturation 98 O2 % 30 ABG pCO2 23.5 L ABG pO2 100 Donnie Test POS Respiration Rate 14 O2 Delivery Device Bi / C PAP EPAP 6 IPAP 12 Blood Gas Notified Whom ICU MD Blood Gas Notified Time 1046 Sodium Potassium Chloride Carbon Dioxide Anion Gap BUN Creatinine Estim Creat Clear Calc Est GFR (MDRD) Af Amer Est GFR (MDRD) Non-Af BUN/Creatinine Ratio Glucose Hemoglobin A1c Lactic Acid Uric Acid Calcium Phosphorus Magnesium Iron TIBC Iron Saturation Ferritin Total Bilirubin Direct Bilirubin AST ALT Alkaline Phosphatase Troponin I 1.86 H* Total Protein Albumin Globulin Albumin/Globulin Ratio PSA Screen Urine Color Urine Clarity Urine pH Ur Specific [place] Urine Protein Urine Glucose (UA) Urine Ketones Urine Occult Blood Urine Nitrite Urine Bilirubin Urine Urobilinogen Ur Leukocyte Esterase U Random Total Protein Ur Random Sodium Urine Creatinine MRSA (PCR) POC Glucose 209 H 05/14/17 05/14/17 05/14/17 17:15 19:35 21:00 WBC RBC Hgb 7.6 L Hct 26.0 L MCV MCH MCHC RDW RDW Differential Plt Count MPV Immature Plt Fraction Retic Count Immature Retic Fraction Retic Hgb Equivalent Specimen Type Sample Site pH Bicarbonate Actual POC Total CO2 Base Excess O2 Saturation O2 % ABG pCO2 ABG pO2 Donnie Test Respiration Rate O2 Delivery Device EPAP IPAP Blood Gas Notified Whom Blood Gas Notified Time Sodium Potassium Chloride Carbon Dioxide Anion Gap BUN Creatinine Estim Creat Clear Calc Est GFR (MDRD) Af Amer Est GFR (MDRD) Non-Af BUN/Creatinine Ratio Glucose Hemoglobin A1c Lactic Acid Uric Acid Calcium Phosphorus Magnesium Iron TIBC Iron Saturation Ferritin Total Bilirubin Direct Bilirubin AST ALT Alkaline Phosphatase Troponin I 1.72 H* Total Protein Albumin Globulin Albumin/Globulin Ratio PSA Screen Urine Color Urine Clarity Urine pH Ur Specific [place] Urine Protein Urine Glucose (UA) Urine Ketones Urine Occult Blood Urine Nitrite Urine Bilirubin Urine Urobilinogen Ur Leukocyte Esterase U Random Total Protein Ur Random Sodium Urine Creatinine MRSA (PCR) POC Glucose 291 H 05/14/17 05/15/17 05/15/17 23:09 03:35 03:35 WBC 20.4 H RBC 3.59 L Hgb 8.6 L Hct 27.4 L MCV 76.3 L MCH 24.0 L MCHC 31.4 L RDW 19.9 H RDW Differential 52.4 H Plt Count 308 MPV 11.5 Immature Plt Fraction Retic Count Immature Retic Fraction Retic Hgb Equivalent Specimen Type Sample Site pH Bicarbonate Actual POC Total CO2 Base Excess O2 Saturation O2 % ABG pCO2 ABG pO2 Donnie Test Respiration Rate O2 Delivery Device EPAP IPAP Blood Gas Notified Whom Blood Gas Notified Time Sodium 139 Potassium 5.2 H Chloride 109 H Carbon Dioxide 17.0 L Anion Gap 13 BUN 74 H Creatinine 3.52 H Estim Creat Clear Calc 24.59 Est GFR (MDRD) Af Amer 23 L Est GFR (MDRD) Non-Af 19 L BUN/Creatinine Ratio 21.0 H Glucose 280 H Hemoglobin A1c Lactic Acid Uric Acid Calcium 7.5 L Phosphorus 6.4 H Magnesium 2.5 Iron TIBC Iron Saturation Ferritin Total Bilirubin 0.30 Direct Bilirubin AST 26 ALT 35 Alkaline Phosphatase 80 Troponin I Total Protein 6.8 Albumin 2.7 L Globulin 4.1 Albumin/Globulin Ratio 0.7 L PSA Screen Urine Color Urine Clarity Urine pH Ur Specific [place] Urine Protein Urine Glucose (UA) Urine Ketones Urine Occult Blood Urine Nitrite Urine Bilirubin Urine Urobilinogen Ur Leukocyte Esterase U Random Total Protein Ur Random Sodium Urine Creatinine MRSA (PCR) POC Glucose 292 H 05/15/17 05:38 WBC RBC Hgb Hct MCV MCH MCHC RDW RDW Differential Plt Count MPV Immature Plt Fraction Retic Count Immature Retic Fraction Retic Hgb Equivalent Specimen Type Sample Site pH Bicarbonate Actual POC Total CO2 Base Excess O2 Saturation O2 % ABG pCO2 ABG pO2 Donnie Test Respiration Rate O2 Delivery Device EPAP IPAP Blood Gas Notified Whom Blood Gas Notified Time Sodium Potassium Chloride Carbon Dioxide Anion Gap BUN Creatinine Estim Creat Clear Calc Est GFR (MDRD) Af Amer Est GFR (MDRD) Non-Af BUN/Creatinine Ratio Glucose Hemoglobin A1c Lactic Acid Uric Acid Calcium Phosphorus Magnesium Iron TIBC Iron Saturation Ferritin Total Bilirubin Direct Bilirubin AST ALT Alkaline Phosphatase Troponin I Total Protein Albumin Globulin Albumin/Globulin Ratio PSA Screen Urine Color Urine Clarity Urine pH Ur Specific [place] Urine Protein Urine Glucose (UA) Urine Ketones Urine Occult Blood Urine Nitrite Urine Bilirubin Urine Urobilinogen Ur Leukocyte Esterase U Random Total Protein Ur Random Sodium Urine Creatinine MRSA (PCR) POC Glucose 281 H Microbiology 05/14/17 07:50 Mucosa - Nasopharyngeal Respiratory Panel (PCR) - Final Influenzae B 05/14/17 08:30 Urine Catheter - Hoff Legionella Antigen - Final 05/14/17 08:27 Urine Catheter - Hoff Streptococcus pneumoniae Antigen (M - Final Clinical Impression(s) from Imaging Studies Chest X-Ray 05/14/17 04:53 IMPRESSION: There is suboptimal inspiration There are bibasilar infiltrates and small effusions larger on the RIGHT. There is NO pneumothorax. Heart is borderline enlarged. Electronically Signed: Ryan Mejia MD at 6:22 EST , Service support , Renal Ultrasound 05/14/17 09:35 IMPRESSION: Normal ultrasound of the kidneys. Electronically Signed: Herbert Carroll MD at 13:09 EST Tel [phone], Service support , Chest X-Ray 05/15/17 05:55 IMPRESSION: There is suboptimal inspiration. There are bibasilar infiltrates greater on the RIGHT. There is a small RIGHT pleural effusion. There is NO pneumothorax. There is borderline enlarged. Electronically Signed: Ryan Mejia MD at 4:30 EST , Service support , Assessment/Plan Active and Suspected Problems Coronary artery disease (Acute) COPD with severe acute bronchitis (Acute) Acute on chronic blood loss anemia (Acute) Benign lung tumor s/p right lobectomy (Acute) Lower GI bleed (Acute) Acute hypoxic respiratory failure (Acute) Chronic left upper extremity numbness (Acute) Acute kidney injury (Acute) Non-STEMI (non-ST elevated myocardial infarction) (Acute) RECOMMENDATIONS: 1. Continue Tamiflu and antibiotics 2. Recheck H&H at 12:00 today. 3. Continue aerosol treatments while awake. 4. Continue IV steroids for now. Patient can likely be transitioned to prednisone beginning tomorrow. 5. Continue Levemir and sliding scale insulin coverage. 6. Continue twice daily Protonix. IMPRESSIONS: 1. Severe sepsis secondary to community-acquired pneumonia/influenza B The patient has been adequately volume resuscitated at this time. Lactate is downtrending. Continue both antibiotics and Tamiflu. 2. Acute hypoxemic respiratory failure/questionable COPD with exacerbation Continue BiPAP therapy with naps and nightly. Continue aerosol treatments while awake along with IV steroids. Pending clinical improvement, the patient can likely be transitioned to prednisone beginning tomorrow. Will attempt to obtain outside medical records from the office of Dr. Fung. Regardless, the patient undoubtedly needs to establish care with a patient account analyst following his discharge from the hospital. Baseline PFTs need to be obtained on an outpatient basis. Perform walking oximetry study prior to consideration for discharge from the hospital. 3. Microcytic anemia/chronic NSAID utilization Likely secondary to chronic gastrointestinal blood loss due to chronic NSAID utilization. The patient's aspirin and Plavix are currently on hold. Continue PPI twice daily. Recheck H&H at noon today. Transfuse if hemoglobin drops below 7 g/dL. 4. Acute on chronic kidney disease Nephrology is following. Concern for underlying medical renal disease. No indication for renal replacement therapy at this time. 5. Troponin elevation/history of coronary artery disease status post PCI Likely secondary to demand ischemia in the setting of anemia and severe sepsis. Aspirin and Plavix are currently on hold. Cardiology is following. The patient will likely require a follow-up nuclear stress test once medically stable. 6. Personal history of obstructive sleep apnea, noncompliant with nocturnal PAP therapy The patient reports that he has been noncompliant with use of his home CPAP for multiple years. Following this hospitalization, it would be beneficial for a re-titration study to be completed. Close outpatient pulmonary follow-up is recommended. In the interim, empiric BiPAP can be utilized on a nightly basis. 7. Obesity/hypertension/history of lung tumor status post lobectomy/diabetes/peripheral vascular disease Complicates care, management, recovery and prognosis. Continue Accu-Cheks and sliding scale insulin coverage before meals and at bedtime. This note was generated with [employer] software. It may contain incorrect words, spelling, and punctuation that were not noted in checking the note before signing. Code Visit Inpatient E&M: 64007 Subs Hosp L3
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
[2017-05-15] MEDS: Allopurinol 300 MG Tablet 150 MG PO (10:12)
[2017-05-15] MEDS: Cefepime HCl 2 GM in 0.9% NS 100 ML Minibag Q8 IV (10:13)
[2017-05-15] MEDS: Pantoprazole Sodium 40 MG Tablet PO ×2 (10:13→22:34)
[2017-05-15] MEDS: Metoprolol(XL)Succ 25 MG Tablet PO (10:17)
[2017-05-15] MEDS: Oseltamivir Phosphate 30 MG Capsule PO (10:17)
[2017-05-15 11:11] LABS: Bedside Glucose 295 mg/dL (70-110)
--- NOTE | 2017-05-15 11:17 | PCM.PN.CARD ---
Subjectve: Her today, still with bilateral rhonchi. No chest pain or 24 hour events. Objective: Vital Signs Temp Pulse Resp BP Pulse Ox 97.6 F L 98 18 121/68 H 97 05/15/17 08:00 05/15/17 11:00 05/15/17 11:00 05/15/17 11:00 05/15/17 11:00 Oxygen Flow Rate 1 Oxygen Delivery Method Nasal Cannula Weight: 247 lb 9.266 oz Body Mass Index (BMI) 31.9 Intake and Output for Last 24 Hours 05/13/17 05/14/17 05/15/17 23:59 23:59 23:59 Intake Total 2568 / 2568 640 / 640 Output Total 2075 / 2075 350 / 350 Balance 493 / 493 290 / 290 General: Awake, Alert, Oriented x 3 HEENT: PERRL, EOMI, Sclera Non Icteric Neck: Supple, Good ROM, No Lymph Node Enlargement Lungs: Clear to auscultation, Rales - Gerald Bases, Rhonchi Cardiovascular: Regular Rhythm, Normal S1, Normal S2, No Murmurs, No Rubs, No Gallops Vascular: No Carotid Bruits, Normal Femoral Pulses, Normal Radial Pulses, Normal Dorsalis Pedal Pulse, Normal Posterior Tibial Pulses Abdomen: Bowel Sounds Present, Soft, Non Tender, No HSM, No Organomegaly Extremities: No Cyanosis, No Clubbing, No edema Neurological: No Focal Motor or Sensory Deficit 05/14/17 13:45: Troponin I 1.86 H* 05/14/17 19:35: Troponin I 1.72 H* 05/14/17 21:00: Hgb 7.6 L, Hct 26.0 L 05/15/17 03:35: WBC 20.4 H, RBC 3.59 L, Hgb 8.6 L, Hct 27.4 L, MCV 76.3 L, MCH 24.0 L, MCHC 31.4 L, RDW 19.9 H, RDW Differential 52.4 H, Plt Count 308, MPV 11.5 05/15/17 03:35: Sodium 139, Potassium 5.2 H, Chloride 109 H, Carbon Dioxide 17.0 L, Anion Gap 13, BUN 74 H, Creatinine 3.52 H, Est GFR (MDRD) Af Amer 23 L, Est GFR (MDRD) Non-Af 19 L, BUN/Creatinine Ratio 21.0 H, Glucose 280 H, Calcium 7.5 L, Phosphorus 6.4 H, Magnesium 2.5, Total Bilirubin 0.30 Rhythm: EKG: ECHO: LV function of 65%, RVSP decreased from 31-14 mmHg. Stress Test: Cardiac Cath: PCI: CT Surgery: Holter monitor: EPS: PPM: CXR: Chest CT Scan: Assessment/Plan 1. Coronary artery disease: The patient presented with severe hypertension with associated chest pain and numbness down his left arm, relieved with sublingual nitroglycerin and blood pressure control. He was also profoundly anemic at hemoglobin is 6.3, and his hemoglobin up to 8.6. Would recommend keeping his hemoglobin above 8.0 at the very least. Would recommend holding his Plavix at this time and continuing baby aspirin going forward. Would also recommend PPI therapy in the event that he may have an undiagnosed ulcer. Patient is now back in normal sinus rhythm and has maintained overnight.. LV function is normal with an EF of 65% by echocardiogram on this admission. Would not recommend catheterization at this time as he has no evidence of ST elevation or anginal symptoms or unstable arrhythmias. I would however recommend that he undergo a noninvasive nuclear stress test once he has recovered to determine if he has any areas of ischemia particularly of the anterior or lateral territories consistent with his previous stents. In addition the patient was on Zestoretic 20/12.5 mg p.o. daily in the distant past, would recommend restarting this once he is hemodynamically stable, and assuming his creatinine normalizes. If his creatinine does not normalize, we may want to consider Imdur/hydralazine combination for hypertension and afterload reduction.. 2. Atrial fibrillation: The patient appears to have converted to sinus tachycardia. Continue baby aspirin. Given his GI bleeding would not recommend heparin at this time. Patient's last medicine list as of 2011 showed that he was on Toprol-XL 50 mg p.o. daily. We initiated Toprol-XL 25 mg yesterday, and recommend increasing this to 50 mg a day going forward, assuming his blood pressure is able to tolerate it. Her graft would recommend keeping his potassium above 4.0 and his magnesium of 2.0. 3. Hyperlipidemia: Patient was on TriCor therapy in the past, and is currently on atorvastatin. Continue atorvastatin. 4. Thank you very much for the opportunity to participate in the cardiac care of your patient. Code Visit Inpatient E&M: [id number] Subs Hosp L2
[2017-05-15 11:57] LABS: Absolute Lymphocyte Count 0.61 X10^3/ul (0.83-4.51); Absolute Neutrophil Count 19.7 X10^3/uL (2.0-7.7); Basophil# 0.01 X10^3/uL; Hemoglobin 8.2 g/dl (13.0-16.5); Lymphocyte # 0.61 X10^3/ul (4.0); Mean Corp Hgb Conc 30.4 g/gl (32-36); Mean Corpuscular Hgb 22.8 pg (27.0-32.0); Monocyte# 0.31 X10^3/uL; Monocyte% 1.5 % (0-10); Neutrophil # 19.69 X10^3/uL (2.7-7.7); Neutrophil % 95.4 % (47-70); POSITIVE COUNT NO; POSITIVE DIFFERENTIAL NO; POSITIVE MORPHOLOGY YES; Platelet Count 225 K/mm3 (150-450); RBC Distribution Width CV 20.2 % (11.6-14.6); RBC Distribution Width SD 55.3 fl (35.1-43.9); White Blood Count 20.6 K/mm3 (4.4-11.0)
[2017-05-15 11:58] LABS: Differential Indicated SCAN CRITERIA MET
[2017-05-15 12:41] LABS: PTHIN 143.5 pg/mL (18.4-80.1)
[2017-05-15 12:48] LABS: Anisocytosis 1+; Hypochromasia 2+; Platelet Estimate ADEQUATE (ADEQ)
[2017-05-15 12:49] LABS: Absolute Nucleated RBC Count 0.07 10^3/uL (0-5); NRBC Flagged by Analyzer 0.3 % (0-5)
[2017-05-15] MEDS: Tamsulosin HCl 0.4 MG Capsule PO (16:52)
[2017-05-15 16:56] LABS: Bedside Glucose 414 mg/dL (70-110)
--- NOTE | 2017-05-15 17:10 | PCM.PN.REN ---
Patient Problems: Active and Suspected Problems Coronary artery disease (Acute) COPD with severe acute bronchitis (Acute) Acute on chronic blood loss anemia (Acute) Benign lung tumor s/p right lobectomy (Acute) Lower GI bleed (Acute) Acute hypoxic respiratory failure (Acute) Chronic left upper extremity numbness (Acute) Acute kidney injury (Acute) Non-STEMI (non-ST elevated myocardial infarction) (Acute) Subjective: complains of a moist, productive cough with wheezing. Breathing better off BiPAP. Creatinine increased to 3.5 today off ivf. Urine output good. Myalgias, fever better after started on tamiflu yesterday. - Physical Exam General: Alert, Oriented x3, Cooperative Oral: Dry Mucosa Lungs: Wheezes - mild dyspnea, moist cough Cardiovascular: Regular rate Abdomen: Bowel Sounds Present, Soft, Non Tender, Non-Distended, Obese Extremities: No edema Skin: No rashes Musculoskeletal: No Muscle Wasting Neurological: Neuro grossly intact Psych/Mental Status: Normal Affect, Appropriate, Alert and oriented to time, place, person, mood and affect Vital Signs Temp Pulse Resp BP Pulse Ox 98.2 F 99 18 112/78 96 05/15/17 16:00 05/15/17 16:00 05/15/17 16:00 05/15/17 16:00 05/15/17 16:00 Oxygen Flow Rate 2 Oxygen Delivery Method Nasal Cannula Weight: 112.3 kg Body Mass Index (BMI) 31.9 Intake and Output for Last 24 Hours 05/13/17 05/14/17 05/15/17 23:59 23:59 23:59 Intake Total 2568 / 2568 1100 / 1100 Output Total 2075 / 2075 700 / 700 Balance 493 / 493 400 / 400 Microbiology Past 72 Hours 05/14/17 08:30 Gram Stain - Final Sputum, Expectorated/Coughed Respiratory Culture - Preliminary Alpha Hemolytic Streptococcus 05/14/17 07:50 Respiratory Panel (PCR) - Final Mucosa - Nasopharyngeal Influenzae B 05/14/17 08:30 Legionella Antigen - Final Urine Catheter - Hoff 05/14/17 08:27 Streptococcus pneumoniae Antigen (M - Final Urine Catheter - Hoff Laboratory Tests Past 24 Hrs 05/14/17 05/14/17 05/15/17 19:35 21:00 03:35 WBC 20.4 H RBC 3.59 L Hgb 7.6 L 8.6 L Hct 26.0 L 27.4 L MCV 76.3 L MCH 24.0 L MCHC 31.4 L RDW 19.9 H RDW Differential 52.4 H Plt Count 308 MPV 11.5 Immature Gran % (Auto) Neut % (Auto) Lymph % (Auto) [place] % (Auto) Eos % (Auto) Baso % (Auto) Absolute Neuts (auto) Absolute Lymphs (auto) Total Counted Nucleated RBC % Platelet Estimate Hypochromasia Anisocytosis Absolute Retic Sodium Potassium Chloride Carbon Dioxide Anion Gap BUN Creatinine Estim Creat Clear Calc Est GFR (MDRD) Af Amer Est GFR (MDRD) Non-Af BUN/Creatinine Ratio Glucose Calcium Phosphorus Magnesium Total Bilirubin AST ALT Alkaline Phosphatase Troponin I 1.72 H* Total Protein Albumin Globulin Albumin/Globulin Ratio Vitamin D 25-Hydroxy PTH Intact 05/15/17 05/15/17 05/15/17 03:35 09:25 09:25 WBC RBC Hgb Hct MCV MCH MCHC RDW RDW Differential Plt Count MPV Immature Gran % (Auto) Neut % (Auto) Lymph % (Auto) [place] % (Auto) Eos % (Auto) Baso % (Auto) Absolute Neuts (auto) Absolute Lymphs (auto) Total Counted Nucleated RBC % Platelet Estimate Hypochromasia Anisocytosis Absolute Retic Sodium 139 Potassium 5.2 H Chloride 109 H Carbon Dioxide 17.0 L Anion Gap 13 BUN 74 H Creatinine 3.52 H Estim Creat Clear Calc 24.59 Est GFR (MDRD) Af Amer 23 L Est GFR (MDRD) Non-Af 19 L BUN/Creatinine Ratio 21.0 H Glucose 280 H Calcium 7.5 L Phosphorus 6.4 H Magnesium 2.5 Total Bilirubin 0.30 AST 26 ALT 35 Alkaline Phosphatase 80 Troponin I Total Protein 6.8 Albumin 2.7 L Globulin 4.1 Albumin/Globulin Ratio 0.7 L Vitamin D 25-Hydroxy Pending PTH Intact 143.5 H 05/15/17 11:45 WBC 20.6 H RBC 3.60 L Hgb 8.2 L Hct 27.0 L MCV 75.0 L MCH 22.8 L MCHC 30.4 L RDW 20.2 H RDW Differential 55.3 H Plt Count 225 MPV TNP Immature Gran % (Auto) 0.100 Neut % (Auto) 95.4 H Lymph % (Auto) 3.0 L [place] % (Auto) 1.5 Eos % (Auto) 0.0 Baso % (Auto) 0.0 Absolute Neuts (auto) 19.7 H Absolute Lymphs (auto) 0.61 L Total Counted Not Reportable Nucleated RBC % 0.3 Platelet Estimate ADEQUATE Hypochromasia 2+ Anisocytosis 1+ Absolute Retic 0.07 Sodium Potassium Chloride Carbon Dioxide Anion Gap BUN Creatinine Estim Creat Clear Calc Est GFR (MDRD) Af Amer Est GFR (MDRD) Non-Af BUN/Creatinine Ratio Glucose Calcium Phosphorus Magnesium Total Bilirubin AST ALT Alkaline Phosphatase Troponin I Total Protein Albumin Globulin Albumin/Globulin Ratio Vitamin D 25-Hydroxy PTH Intact POC Glucose 05/15/17 05/15/17 05/15/17 16:50 10:58 05:38 POC Glucose 414 H 295 H 281 H 05/14/17 05/14/17 23:09 17:15 POC Glucose 292 H 291 H Assessment/Plan Active and Suspected Problems Coronary artery disease (Acute) COPD with severe acute bronchitis (Acute) Acute on chronic blood loss anemia (Acute) Benign lung tumor s/p right lobectomy (Acute) Lower GI bleed (Acute) Acute hypoxic respiratory failure (Acute) Chronic left upper extremity numbness (Acute) Acute kidney injury (Acute) Non-STEMI (non-ST elevated myocardial infarction) (Acute) 1. Acute on CKD stage 3 vs progressive diabetic nephropathy. Creatinine 2.33 eGFR 35cc/min in October 2015 now at 3.25 to 3.6. Will continue to monitor renal function. Discussed with pt re: CKD stage 4 and possible need to start dialysis. Continue to hold ACEi and Mobic due to renal failure. 2. DM type 2 Hx noncompliance with diabetes A1C elevated at 9.8. 3. Acute respiratory distress, influenza B Pulmonary following 4. Iron def anemia hgb 6.3g s/p prbc. IV iron ordered. 5. Check PTH, vit D. 6. PAD with claudication RLE followed by DR. Shafer as outpt 7 CAD s/p coronary stent 2003, +troponin/NSTEMI, cardiology following. 8. Metabolic acidosis with hyperkalemia, start bicarb 9. Hyperphosphatemia, start binders
[2017-05-15] MEDS: Atorvastatin Calcium 40 MG Tablet PO (22:34)
[2017-05-15] MEDS: Sodium Bicarbonate 650 MG Tablet PO (22:34)
[2017-05-16] VITALS (24 sets, daily range): BP systolic 114–156; BP diastolic 55–78; PULSE 64–108; RESP 14–24; TEMP 36.1–37; O2SAT 95–98
[2017-05-16] MEDS: Albuterol 2.5 MG/3 ML VIAL.NEB. INHALATION (01:40)
[2017-05-16] MEDS: 0.9% NaCl Peripheral Flush Adult/Peds IV (05:59)
[2017-05-16] MEDS: Sodium Bicarbonate 650 MG Tablet PO ×3 (05:59→21:32)
[2017-05-16 06:31] LABS: Anion Gap 11 (5-15); BUN 90 mg/dL (7-18); BUN/Creat Ratio 24.5 RATIO (10-20); Calcium,Total 7.7 mg/dL (8.5-10.1); Chloride 105 mmol/L (98-107); Creatinine, Serum 3.67 mg/dL (0.70-1.30); EST Glomerular Filtration Rate 18 mL/min (>60); Est Glom Filt Rate - Afr Amer 22 mL/min (>60); Estimated Creatinine Clearance 23.59 ml/min; Glucose 440 mg/dL (74-106); Magnesium 2.8 mg/dL (1.6-2.6); Phosphorus 5.5 mg/dL (2.5-4.9); Potassium 5.3 mmol/L (3.5-5.1); Sodium Level 132 mmol/L (136-145)
[2017-05-16 06:41] LABS: Hematocrit 27.4 % (40-54); Hemoglobin 8.1 g/dl (13.0-16.5); Mean Corp Hgb Conc 29.6 g/gl (32-36); Mean Corpuscular Hgb 22.4 pg (27.0-32.0); Mean Corpuscular Volume 75.9 fL (80-94); Platelet Count 220 K/mm3 (150-450); RBC Distribution Width CV 20.7 % (11.6-14.6); Red Blood Count 3.61 M/mm3 (4.6-6.2); White Blood Count 14.7 K/mm3 (4.4-11.0)
[2017-05-16 06:42] LABS: Scan Indicated on CBC? Y/N YES- FLAGS NOTED
[2017-05-16 07:00] LABS: Differential Comment SCAN
[2017-05-16 07:06] LABS: Bedside Glucose 423 mg/dL (70-110)
[2017-05-16] MEDS: Ipratropium/Albuterol Sulfate 3 ML AMPUL.NEB INHALATION ×3 (07:24→19:35)
[2017-05-16 08:01] LABS: Bedside Glucose 477 mg/dL (70-110)
[2017-05-16 08:01] LABS: Bedside Glucose 466 mg/dL (70-110)
[2017-05-16 08:46] LABS: Vitamin D,25 Hydroxy 12.9 ng/mL (29.95-100.01)
[2017-05-16] MEDS: Sodium Bicarbonate 75 MEQ in 0.45% Normal Saline 1,000 ML 75 ML IV (08:50)
[2017-05-16] MEDS: Metoprolol(XL)Succ 50 MG Tablet PO (08:54)
[2017-05-16] MEDS: Calcium Acetate 667 MG Capsule PO ×3 (08:54→16:55)
[2017-05-16] MEDS: Pantoprazole Sodium 40 MG Tablet PO ×2 (08:54→21:32)
[2017-05-16] MEDS: Oseltamivir Phosphate 30 MG Capsule PO (09:13)
[2017-05-16] MEDS: Allopurinol 300 MG Tablet 150 MG PO (09:13)
[2017-05-16] MEDS: oxyCODONE 5 MG Tablet PO (09:13)
[2017-05-16] MEDS: Cefepime HCl 2 GM in 0.9% NS 100 ML Minibag Q8 IV (09:14)
--- NOTE | 2017-05-16 09:43 | PN.CARD_ITS ---
Subjectve: Patient continues to slowly improve. Telemetry still has rhythm. No chest pain. Still has conversational dyspnea, and bilateral rhonchi. No anginal symptoms. Objective: Vital Signs Temp Pulse Resp BP Pulse Ox 96.9 F L 98 18 132/72 H 97 05/16/17 08:29 05/16/17 08:54 05/16/17 08:29 05/16/17 08:29 05/16/17 08:29 Oxygen Flow Rate 2 Oxygen Delivery Method Nasal Cannula Weight: 248 lb 7.375 oz Body Mass Index (BMI) 31.9 Intake and Output for Last 24 Hours 05/14/17 05/15/17 05/16/17 23:59 23:59 23:59 Intake Total 2568 / 2568 1325 / 1325 610 / 610 Output Total 2075 / 2075 1250 / 1250 800 / 800 Balance 493 / 493 75 / 75 -190 / -190 General: Awake, Alert, Oriented x 3 HEENT: PERRL, EOMI, Sclera Non Icteric Neck: Supple, Good ROM, No Lymph Node Enlargement Lungs: Rales - Right Base, Rhonchi Cardiovascular: Regular Rhythm, Normal S1, Normal S2, No Murmurs, No Rubs, No Gallops Vascular: No Carotid Bruits, Normal Femoral Pulses, Normal Radial Pulses, Normal Dorsalis Pedal Pulse, Normal Posterior Tibial Pulses Abdomen: Bowel Sounds Present, Soft, Non Tender, No HSM, No Organomegaly Extremities: No Cyanosis, No Clubbing, No edema Neurological: No Focal Motor or Sensory Deficit 05/15/17 11:45: WBC 20.6 H, RBC 3.60 L, Hgb 8.2 L, Hct 27.0 L, MCV 75.0 L, MCH 22.8 L, MCHC 30.4 L, RDW 20.2 H, RDW Differential 55.3 H, Plt Count 225, MPV TNP , Immature Gran % (Auto) 0.100, Neut % (Auto) 95.4 H, Lymph % (Auto) 3.0 L, [place] % (Auto) 1.5, Eos % (Auto) 0.0, Baso % (Auto) 0.0, Absolute Neuts (auto) 19.7 H, Total Counted Not Reportable, Nucleated RBC % 0.3 05/16/17 05:30: WBC 14.7 H, RBC 3.61 L, Hgb 8.1 L, Hct 27.4 L, MCV 75.9 L, MCH 22.4 L, MCHC 29.6 L, RDW 20.7 H, RDW Differential 57.0 H, Plt Count 220 05/16/17 05:30: Sodium 132 L, Potassium 5.3 H, Chloride 105, Carbon Dioxide 16.0 L, Anion Gap 11, BUN 90 H, Creatinine 3.67 H, Est GFR (MDRD) Af Amer 22 L, Est GFR (MDRD) Non-Af 18 L, BUN/Creatinine Ratio 24.5 H, Glucose 440 H, Calcium 7.7 L, Phosphorus 5.5 H, Magnesium 2.8 H Rhythm: EKG: ECHO: Stress Test: Cardiac Cath: PCI: CT Surgery: Holter monitor: EPS: PPM: CXR: Chest CT Scan: Assessment/Plan 1. Coronary artery disease: The patient presented with severe hypertension with associated chest pain and numbness down his left arm, relieved with sublingual nitroglycerin and blood pressure control. He was also profoundly anemic at hemoglobin is 6.3, and his hemoglobin up to 8.6. Would recommend keeping his hemoglobin above 8.0 at the very least. Today it is 8.1. Would recommend holding his Plavix at this time and continuing baby aspirin going forward. Would also recommend PPI therapy in the event that he may have an undiagnosed ulcer. Patient is now back in normal sinus rhythm and has maintained overnight.. LV function is normal with an EF of 65% by echocardiogram on this admission. Would not recommend catheterization at this time as he has no evidence of ST elevation or anginal symptoms or unstable arrhythmias. I would however recommend that he undergo a noninvasive nuclear stress test once he has recovered, perhaps this Friday, and prior to discharge to determine if he has any areas of ischemia particularly of the anterior or lateral territories consistent with his previous stents. In addition the patient was on Zestoretic 20/12.5 mg p.o. daily in the distant past, would recommend restarting this once he is hemodynamically stable, and assuming his creatinine normalizes. If his creatinine does not normalize, we may want to consider Imdur/hydralazine combination for hypertension and afterload reduction.. 2. Atrial fibrillation: The patient appears to have converted to sinus tachycardia. Continue baby aspirin. Given his GI bleeding would not recommend heparin or Coumadin at this time. Patient's last medicine list as of 2011 showed that he was on Toprol-XL 50 mg p.o. daily. We initiated Toprol-XL 25 mg initially, and increase this to 50 mg a day going forward, assuming his blood pressure is able to tolerate it. He appears to be tolerating it well. Would recommend keeping his potassium above 4.0 and his magnesium of 2.0. 3. Hyperlipidemia: Patient was on TriCor therapy in the past, and is currently on atorvastatin. Continue atorvastatin. 4. Thank you very much for the opportunity to participate in the cardiac care of your patient. Recommend PT/OT for evaluation for rehab placement versus discharge home. If the patient has no further rhonchi on Friday evening, recommend a Lexiscan/MPI Friday morning for cardiac risk stratification given his history of coronary disease, and abnormal troponins. If his stress test is negative for inducible ischemia, would recommend continuing medical management going forward. His chronic renal insufficiency has increased his creatinine from 2.0 to around 3.2 since 2016 and he would be at high risk for acute on chronic renal failure should he require catheterization. If any catheterization is to be done, would recommend staging intervention if this is found to be necessary and would avoid LV gram to save on contrast dye. Code Visit Inpatient E&M: 13196 Subs Hosp L2
--- NOTE | 2017-05-16 10:37 | PCM.PROGNOTE ---
Patient Problems: Active and Suspected Problems Coronary artery disease (Acute) COPD with severe acute bronchitis (Acute) Acute on chronic blood loss anemia (Acute) Benign lung tumor s/p right lobectomy (Acute) Lower GI bleed (Acute) Acute hypoxic respiratory failure (Acute) Acute kidney injury (Acute) Non-STEMI (non-ST elevated myocardial infarction) (Acute) Subjective: The patient was seen and examined. He is sitting up in bed talking on the phone. Reports a productive cough of clear sputum. Complains of chronic back pain, controlled with his home medications. Breathing is overall better. States Dr. Leahy was in and spoke to him about a stress test, he would rather not proceed. Discussed outpatient use of his CPAP and repeat testing such as polysomnogram and pulmonary function tests, patient does not appear to be interested but is going to think about it. Objective: Recent lab work and culture data reviewed. Leukocytosis improving. Hemoglobin stable at 8.1. Patient remains afebrile and hemodynamically stable. Sodium low at 132 and potassium 5.3. Renal function remains about the same. Glucose is elevated at 440. Magnesium and phosphorus also elevated. PTH intact elevated and vitamin D 25-hydroxy level low. Clinical Impression(s) from Imaging Studies Chest X-Ray 05/14/17 04:53 IMPRESSION: There is suboptimal inspiration There are bibasilar infiltrates and small effusions larger on the RIGHT. There is NO pneumothorax. Heart is borderline enlarged. Electronically Signed: Ryan Mejia MD at 6:22 EST , Service support , Renal Ultrasound 05/14/17 09:35 IMPRESSION: Normal ultrasound of the kidneys. Electronically Signed: Herbert Carroll MD at 13:09 EST Tel [phone], Service support , Chest X-Ray 05/15/17 05:55 IMPRESSION: There is suboptimal inspiration. There are bibasilar infiltrates greater on the RIGHT. There is a small RIGHT pleural effusion. There is NO pneumothorax. There is borderline enlarged. Electronically Signed: Ryan Mejia MD at 4:30 EST , Service support , - Physical Exam General: Alert, Oriented x3, Cooperative, No apparent distress HEENT: Atraumatic, Normocephalic Oral: Moist Mucosa, No Gingival or Mucosal Lesions/ Ulcerations Neck: Supple, No Nodes, Trachea Midline Lungs: Diminished, - - Rhonchi and expiratory wheeze. Symmetrical expansion, no dullness to percussion Cardiovascular: Regular rate, Regular Rhythm, Normal S1, Normal S2, No murmurs, No rub noted, No Gallop Abdomen: Bowel Sounds Present, Soft, Non Tender, Non-Distended, Obese Extremities: No clubbing, No cyanosis, No edema Skin: No rashes, No breakdown Musculoskeletal: No Tenderness to Palpation of Joints or Extremities Lymphatic: No Cervical, Supraclavicular, or Inguinal Adenopathy Neurological: Neuro grossly intact Psych/Mental Status: Alert and oriented to time, place, person, mood and affect Vital Signs Temp Pulse Resp BP Pulse Ox 96.9 F L 98 18 132/72 H 97 05/16/17 08:29 05/16/17 08:54 05/16/17 08:29 05/16/17 08:29 05/16/17 08:29 Oxygen Flow Rate 2 Oxygen Delivery Method Nasal Cannula Weight: 248 lb 7.375 oz Body Mass Index (BMI) 31.9 Intake and Output for Last 24 Hours 05/14/17 05/15/17 05/16/17 23:59 23:59 23:59 Intake Total 2568 / 2568 1325 / 1325 610 / 610 Output Total 2075 / 2075 1250 / 1250 800 / 800 Balance 493 / 493 75 / 75 -190 / -190 Microbiology Past 72 Hours 05/14/17 08:30 Gram Stain - Final Sputum, Expectorated/Coughed Respiratory Culture - Preliminary Streptococcus pneumoniae 05/14/17 07:50 Respiratory Panel (PCR) - Final Mucosa - Nasopharyngeal Influenzae B 05/14/17 08:30 Legionella Antigen - Final Urine Catheter - Hoff 05/14/17 08:27 Streptococcus pneumoniae Antigen (M - Final Urine Catheter - Hoff Laboratory Tests Past 24 Hrs 05/15/17 05/15/17 05/15/17 09:25 09:25 11:45 WBC 20.6 H RBC 3.60 L Hgb 8.2 L Hct 27.0 L MCV 75.0 L MCH 22.8 L MCHC 30.4 L RDW 20.2 H RDW Differential 55.3 H Plt Count 225 MPV TNP Immature Gran % (Auto) 0.100 Neut % (Auto) 95.4 H Lymph % (Auto) 3.0 L [place] % (Auto) 1.5 Eos % (Auto) 0.0 Baso % (Auto) 0.0 Absolute Neuts (auto) 19.7 H Absolute Lymphs (auto) 0.61 L Total Counted Not Reportable Nucleated RBC % 0.3 Differential Comment Platelet Estimate ADEQUATE Hypochromasia 2+ Anisocytosis 1+ Absolute Retic 0.07 Sodium Potassium Chloride Carbon Dioxide Anion Gap BUN Creatinine Estim Creat Clear Calc Est GFR (MDRD) Af Amer Est GFR (MDRD) Non-Af BUN/Creatinine Ratio Glucose Calcium Phosphorus Magnesium Vitamin D 25-Hydroxy 12.9 L PTH Intact 143.5 H 05/16/17 05/16/17 05:30 05:30 WBC 14.7 H RBC 3.61 L Hgb 8.1 L Hct 27.4 L MCV 75.9 L MCH 22.4 L MCHC 29.6 L RDW 20.7 H RDW Differential 57.0 H Plt Count 220 MPV Immature Gran % (Auto) Neut % (Auto) Lymph % (Auto) [place] % (Auto) Eos % (Auto) Baso % (Auto) Absolute Neuts (auto) Absolute Lymphs (auto) Total Counted Nucleated RBC % Differential Comment SCAN Platelet Estimate Hypochromasia Anisocytosis Absolute Retic Sodium 132 L Potassium 5.3 H Chloride 105 Carbon Dioxide 16.0 L Anion Gap 11 BUN 90 H Creatinine 3.67 H Estim Creat Clear Calc 23.59 Est GFR (MDRD) Af Amer 22 L Est GFR (MDRD) Non-Af 18 L BUN/Creatinine Ratio 24.5 H Glucose 440 H Calcium 7.7 L Phosphorus 5.5 H Magnesium 2.8 H Vitamin D 25-Hydroxy PTH Intact POC Glucose 05/16/17 05/15/17 05/15/17 06:59 22:32 22:31 POC Glucose 423 H 466 H* 477 H* 05/15/17 05/15/17 16:50 10:58 POC Glucose 414 H 295 H Assessment/Plan Active and Suspected Problems Coronary artery disease (Acute) COPD with severe acute bronchitis (Acute) Acute on chronic blood loss anemia (Acute) Benign lung tumor s/p right lobectomy (Acute) Lower GI bleed (Acute) Acute hypoxic respiratory failure (Acute) Acute kidney injury (Acute) Non-STEMI (non-ST elevated myocardial infarction) (Acute) RECOMMENDATIONS: 1. Continue Tamiflu and antibiotics 2. Continue aerosol treatments while awake. 3. Continue oral steroids with taper at discharge. 4. Continue Levemir and sliding scale insulin coverage, adjust as indicated. 5. Continue twice daily Protonix. 6. Wean oxygen supplementation to keep saturations 88-92% 7. Please offer f/u appt with PARK MAINTAINER in pulmonary clinic at discharge. IMPRESSIONS: 1. Severe sepsis secondary to community-acquired pneumonia/influenza B The patient has been adequately volume resuscitated at this time. Lactate is downtrending. Continue both antibiotics and Tamiflu. 2. Acute hypoxemic respiratory failure/questionable COPD with exacerbation Continue BiPAP therapy with naps and nightly. Continue aerosol treatments while awake along with IV steroids. Will attempt to obtain outside medical records from the office of Dr. Fung. Regardless, the patient undoubtedly needs to establish care with a cooperative extension agent following his discharge from the hospital. Baseline PFTs need to be obtained on an outpatient basis. Perform walking oximetry study prior to consideration for discharge from the hospital. 3. Microcytic anemia/chronic NSAID utilization Likely secondary to chronic gastrointestinal blood loss due to chronic NSAID utilization. The patient's aspirin and Plavix are currently on hold. Continue PPI twice daily. Transfuse if hemoglobin drops below 7 g/dL. 4. Acute on chronic kidney disease Nephrology is following. Concern for underlying medical renal disease. No indication for renal replacement therapy at this time. 5. NSTEMI/history of coronary artery disease status post PCI Likely secondary to demand ischemia in the setting of anemia and severe sepsis. Aspirin and Plavix are currently on hold. Cardiology is following. The patient will likely require a follow-up nuclear stress test once medically stable, however states he would rather not. 6. Personal history of obstructive sleep apnea, noncompliant with nocturnal PAP therapy The patient reports that he has been noncompliant with use of his home CPAP for multiple years. Following this hospitalization, it would be beneficial for a re-titration study to be completed. Close outpatient pulmonary follow-up is recommended. In the interim, empiric BiPAP can be utilized on a nightly basis. Patient does not express interest in compliance with his Pap or having repeat testing, however he will let us know. 7. Obesity/hypertension/history of lung tumor status post lobectomy/diabetes/peripheral vascular disease Complicates care, management, recovery and prognosis. Continue Accu-Cheks and sliding scale insulin coverage before meals and at bedtime. May need increase in insulin schedule with steroid use. This note was generated with [employer] dictation software. It may contain incorrect words, spelling, and punctuation that were not noted in checking the note before signing.
--- NOTE | 2017-05-16 10:57 | PN_ITS ---
Patient Problems: Active and Suspected Problems Coronary artery disease (Acute) COPD with severe acute bronchitis (Acute) Acute on chronic blood loss anemia (Acute) Benign lung tumor s/p right lobectomy (Acute) Lower GI bleed (Acute) Acute hypoxic respiratory failure (Acute) Acute kidney injury (Acute) Non-STEMI (non-ST elevated myocardial infarction) (Acute) Subjective: The patient was seen and examined. He is sitting up in bed talking on the phone. Reports a productive cough of clear sputum. Complains of chronic back pain, controlled with his home medications. Breathing is overall better. States Dr. Leahy was in and spoke to him about a stress test, he would rather not proceed. Discussed outpatient use of his CPAP and repeat testing such as polysomnogram and pulmonary function tests, patient does not appear to be interested but is going to think about it. Objective: Recent lab work and culture data reviewed. Leukocytosis improving. Hemoglobin stable at 8.1. Patient remains afebrile and hemodynamically stable. Sodium low at 132 and potassium 5.3. Renal function remains about the same. Glucose is elevated at 440. Magnesium and phosphorus also elevated. PTH intact elevated and vitamin D 25-hydroxy level low. Clinical Impression(s) from Imaging Studies Chest X-Ray 05/14/17 04:53 IMPRESSION: There is suboptimal inspiration There are bibasilar infiltrates and small effusions larger on the RIGHT. There is NO pneumothorax. Heart is borderline enlarged. Electronically Signed: Ryan Mejia MD at 6:22 EST , Service support , Renal Ultrasound 05/14/17 09:35 IMPRESSION: Normal ultrasound of the kidneys. Electronically Signed: Herbert Carroll MD at 13:09 EST Tel [phone], Service support , Chest X-Ray 05/15/17 05:55 IMPRESSION: There is suboptimal inspiration. There are bibasilar infiltrates greater on the RIGHT. There is a small RIGHT pleural effusion. There is NO pneumothorax. There is borderline enlarged. Electronically Signed: Ryan Mejia MD at 4:30 EST , Service support , - Physical Exam General: Alert, Oriented x3, Cooperative, No apparent distress HEENT: Atraumatic, Normocephalic Oral: Moist Mucosa, No Gingival or Mucosal Lesions/ Ulcerations Neck: Supple, No Nodes, Trachea Midline Lungs: Diminished, - - Rhonchi and expiratory wheeze. Symmetrical expansion, no dullness to percussion Cardiovascular: Regular rate, Regular Rhythm, Normal S1, Normal S2, No murmurs, No rub noted, No Gallop Abdomen: Bowel Sounds Present, Soft, Non Tender, Non-Distended, Obese Extremities: No clubbing, No cyanosis, No edema Skin: No rashes, No breakdown Musculoskeletal: No Tenderness to Palpation of Joints or Extremities Lymphatic: No Cervical, Supraclavicular, or Inguinal Adenopathy Neurological: Neuro grossly intact Psych/Mental Status: Alert and oriented to time, place, person, mood and affect Vital Signs Temp Pulse Resp BP Pulse Ox 96.9 F L 98 18 132/72 H 97 05/16/17 08:29 05/16/17 08:54 05/16/17 08:29 05/16/17 08:29 05/16/17 08:29 Oxygen Flow Rate 2 Oxygen Delivery Method Nasal Cannula Weight: 248 lb 7.375 oz Body Mass Index (BMI) 31.9 Intake and Output for Last 24 Hours 05/14/17 05/15/17 05/16/17 23:59 23:59 23:59 Intake Total 2568 / 2568 1325 / 1325 610 / 610 Output Total 2075 / 2075 1250 / 1250 800 / 800 Balance 493 / 493 75 / 75 -190 / -190 Microbiology Past 72 Hours 05/14/17 08:30 Gram Stain - Final Sputum, Expectorated/Coughed Respiratory Culture - Preliminary Streptococcus pneumoniae 05/14/17 07:50 Respiratory Panel (PCR) - Final Mucosa - Nasopharyngeal Influenzae B 05/14/17 08:30 Legionella Antigen - Final Urine Catheter - Hoff 05/14/17 08:27 Streptococcus pneumoniae Antigen (M - Final Urine Catheter - Hoff Laboratory Tests Past 24 Hrs 05/15/17 05/15/17 05/15/17 09:25 09:25 11:45 WBC 20.6 H RBC 3.60 L Hgb 8.2 L Hct 27.0 L MCV 75.0 L MCH 22.8 L MCHC 30.4 L RDW 20.2 H RDW Differential 55.3 H Plt Count 225 MPV TNP Immature Gran % (Auto) 0.100 Neut % (Auto) 95.4 H Lymph % (Auto) 3.0 L [place] % (Auto) 1.5 Eos % (Auto) 0.0 Baso % (Auto) 0.0 Absolute Neuts (auto) 19.7 H Absolute Lymphs (auto) 0.61 L Total Counted Not Reportable Nucleated RBC % 0.3 Differential Comment Platelet Estimate ADEQUATE Hypochromasia 2+ Anisocytosis 1+ Absolute Retic 0.07 Sodium Potassium Chloride Carbon Dioxide Anion Gap BUN Creatinine Estim Creat Clear Calc Est GFR (MDRD) Af Amer Est GFR (MDRD) Non-Af BUN/Creatinine Ratio Glucose Calcium Phosphorus Magnesium Vitamin D 25-Hydroxy 12.9 L PTH Intact 143.5 H 05/16/17 05/16/17 05:30 05:30 WBC 14.7 H RBC 3.61 L Hgb 8.1 L Hct 27.4 L MCV 75.9 L MCH 22.4 L MCHC 29.6 L RDW 20.7 H RDW Differential 57.0 H Plt Count 220 MPV Immature Gran % (Auto) Neut % (Auto) Lymph % (Auto) [place] % (Auto) Eos % (Auto) Baso % (Auto) Absolute Neuts (auto) Absolute Lymphs (auto) Total Counted Nucleated RBC % Differential Comment SCAN Platelet Estimate Hypochromasia Anisocytosis Absolute Retic Sodium 132 L Potassium 5.3 H Chloride 105 Carbon Dioxide 16.0 L Anion Gap 11 BUN 90 H Creatinine 3.67 H Estim Creat Clear Calc 23.59 Est GFR (MDRD) Af Amer 22 L Est GFR (MDRD) Non-Af 18 L BUN/Creatinine Ratio 24.5 H Glucose 440 H Calcium 7.7 L Phosphorus 5.5 H Magnesium 2.8 H Vitamin D 25-Hydroxy PTH Intact POC Glucose 05/16/17 05/15/17 05/15/17 06:59 22:32 22:31 POC Glucose 423 H 466 H* 477 H* 05/15/17 05/15/17 16:50 10:58 POC Glucose 414 H 295 H Assessment/Plan Active and Suspected Problems Coronary artery disease (Acute) COPD with severe acute bronchitis (Acute) Acute on chronic blood loss anemia (Acute) Benign lung tumor s/p right lobectomy (Acute) Lower GI bleed (Acute) Acute hypoxic respiratory failure (Acute) Acute kidney injury (Acute) Non-STEMI (non-ST elevated myocardial infarction) (Acute) RECOMMENDATIONS: 1. Continue Tamiflu and antibiotics 2. Continue aerosol treatments while awake. 3. Continue oral steroids with taper at discharge. 4. Continue Levemir and sliding scale insulin coverage, adjust as indicated. 5. Continue twice daily Protonix. 6. Wean oxygen supplementation to keep saturations 88-92% 7. Please offer f/u appt with HOUSING OFFICER in pulmonary clinic at discharge. IMPRESSIONS: 1. Severe sepsis secondary to community-acquired pneumonia/influenza B The patient has been adequately volume resuscitated at this time. Lactate is downtrending. Continue both antibiotics and Tamiflu. 2. Acute hypoxemic respiratory failure/questionable COPD with exacerbation Continue BiPAP therapy with naps and nightly. Continue aerosol treatments while awake along with IV steroids. Will attempt to obtain outside medical records from the office of Dr. Fung. Regardless, the patient undoubtedly needs to establish care with a natural gas shothole driller following his discharge from the hospital. Baseline PFTs need to be obtained on an outpatient basis. Perform walking oximetry study prior to consideration for discharge from the hospital. 3. Microcytic anemia/chronic NSAID utilization Likely secondary to chronic gastrointestinal blood loss due to chronic NSAID utilization. The patient's aspirin and Plavix are currently on hold. Continue PPI twice daily. Transfuse if hemoglobin drops below 7 g/dL. 4. Acute on chronic kidney disease Nephrology is following. Concern for underlying medical renal disease. No indication for renal replacement therapy at this time. 5. NSTEMI/history of coronary artery disease status post PCI Likely secondary to demand ischemia in the setting of anemia and severe sepsis. Aspirin and Plavix are currently on hold. Cardiology is following. The patient will likely require a follow-up nuclear stress test once medically stable, however states he would rather not. 6. Personal history of obstructive sleep apnea, noncompliant with nocturnal PAP therapy The patient reports that he has been noncompliant with use of his home CPAP for multiple years. Following this hospitalization, it would be beneficial for a re -titration study to be completed. Close outpatient pulmonary follow-up is recommended. In the interim, empiric BiPAP can be utilized on a nightly basis. Patient does not express interest in compliance with his Pap or having repeat testing, however he will let us know. 7. Obesity/hypertension/history of lung tumor status post lobectomy/diabetes/ peripheral vascular disease Complicates care, management, recovery and prognosis. Continue Accu-Cheks and sliding scale insulin coverage before meals and at bedtime. May need increase in insulin schedule with steroid use. This note was generated with [employer] dictation software. It may contain incorrect words, spelling, and punctuation that were not noted in checking the note before signing.
--- NOTE | 2017-05-16 12:09 | PCM.PN.REN ---
Patient Problems: Active and Suspected Problems COPD with severe acute bronchitis (Acute) Acute on chronic blood loss anemia (Acute) Lower GI bleed (Acute) Acute hypoxic respiratory failure (Acute) Acute kidney injury (Acute) Non-STEMI (non-ST elevated myocardial infarction) (Acute) Subjective: Complains of dry mouth and thirst from BiPAP machine last night. Appetite good. Denied any nausea or vomiting. Denies any shortness of breath. Continues to have a dry cough. - Physical Exam General: Alert, Oriented x3, Cooperative, No apparent distress Oral: Dry Mucosa Neck: Supple Lungs: Rhonchi - less wheezing Cardiovascular: Regular rate, No rub noted Abdomen: Bowel Sounds Present, Soft, Non Tender, Non-Distended, Obese Extremities: No edema Skin: No rashes Neurological: Cranial nerves II-XII grossly intact Psych/Mental Status: Normal Affect, Appropriate, Alert and oriented to time, place, person, mood and affect Vital Signs Temp Pulse Resp BP Pulse Ox 96.9 F L 93 18 132/72 H 97 05/16/17 08:29 05/16/17 10:51 05/16/17 08:29 05/16/17 08:29 05/16/17 08:29 Oxygen Flow Rate 2 Oxygen Delivery Method Nasal Cannula Weight: 112.7 kg Body Mass Index (BMI) 31.9 Intake and Output for Last 24 Hours 05/14/17 05/15/17 05/16/17 23:59 23:59 23:59 Intake Total 2568 / 2568 1325 / 1325 1189 / 1189 Output Total 2075 / 2075 1250 / 1250 1550 / 1550 Balance 493 / 493 75 / 75 -361 / -361 Microbiology Past 72 Hours 05/14/17 08:30 Gram Stain - Final Sputum, Expectorated/Coughed Respiratory Culture - Preliminary Streptococcus pneumoniae 05/14/17 07:50 Respiratory Panel (PCR) - Final Mucosa - Nasopharyngeal Influenzae B 05/14/17 08:30 Legionella Antigen - Final Urine Catheter - Hoff 05/14/17 08:27 Streptococcus pneumoniae Antigen (M - Final Urine Catheter - Hoff Laboratory Tests Past 24 Hrs 05/15/17 05/15/17 05/15/17 09:25 09:25 11:45 WBC RBC Hgb Hct MCV MCH MCHC RDW RDW Differential Plt Count Total Counted Not Reportable Nucleated RBC % 0.3 Differential Comment Platelet Estimate ADEQUATE Hypochromasia 2+ Anisocytosis 1+ Absolute Retic 0.07 Sodium Potassium Chloride Carbon Dioxide Anion Gap BUN Creatinine Estim Creat Clear Calc Est GFR (MDRD) Af Amer Est GFR (MDRD) Non-Af BUN/Creatinine Ratio Glucose Calcium Phosphorus Magnesium Vitamin D 25-Hydroxy 12.9 L PTH Intact 143.5 H 05/16/17 05/16/17 05:30 05:30 WBC 14.7 H RBC 3.61 L Hgb 8.1 L Hct 27.4 L MCV 75.9 L MCH 22.4 L MCHC 29.6 L RDW 20.7 H RDW Differential 57.0 H Plt Count 220 Total Counted Nucleated RBC % Differential Comment SCAN Platelet Estimate Hypochromasia Anisocytosis Absolute Retic Sodium 132 L Potassium 5.3 H Chloride 105 Carbon Dioxide 16.0 L Anion Gap 11 BUN 90 H Creatinine 3.67 H Estim Creat Clear Calc 23.59 Est GFR (MDRD) Af Amer 22 L Est GFR (MDRD) Non-Af 18 L BUN/Creatinine Ratio 24.5 H Glucose 440 H Calcium 7.7 L Phosphorus 5.5 H Magnesium 2.8 H Vitamin D 25-Hydroxy PTH Intact POC Glucose 05/16/17 05/15/17 05/15/17 06:59 22:32 22:31 POC Glucose 423 H 466 H* 477 H* 05/15/17 16:50 POC Glucose 414 H Assessment/Plan Active and Suspected Problems COPD with severe acute bronchitis (Acute) Acute on chronic blood loss anemia (Acute) Lower GI bleed (Acute) Acute hypoxic respiratory failure (Acute) Acute kidney injury (Acute) Non-STEMI (non-ST elevated myocardial infarction) (Acute) 1. Acute on CKD stage 3 vs progressive diabetic nephropathy. Creatinine 2.33 eGFR 35cc/min in October 2015, 3.25 on admission progressed to 3.67 IV fluids. Will initiate gentle hydration with sodium bicarbonate for metabolic acidosis and mild hyperkalemia. No immediate need for dialysis. Remains nonoliguric. Check 24 urine for creatinine clearance, total protein. 2. DM type 2 Hx noncompliance with diabetes A1C elevated at 9.8. 3. Acute respiratory distress, influenza B stable. Currently off BiPAP. Transferred out of intensive care. 4. Iron def anemia hgb 6.3g s/p prbc. IV iron ordered. 5. PAD with claudication RLE followed by DR. Shafer as outpt 6. Metabolic acidosis with hyperkalemia, start bicarb 7. Hyperphosphatemia, start binders 8. D deficiency start vitamin D supplements.
[2017-05-16 12:16] LABS: Bedside Glucose 474 mg/dL (70-110)
[2017-05-16] MEDS: Tamsulosin HCl 0.4 MG Capsule PO (16:55)
[2017-05-16 17:10] LABS: Bedside Glucose 470 mg/dL (70-110)
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
[2017-05-16 19:12] LABS: 24 Hour Urine Protein 1163.7 mg/24HR (<150 MG/24HR); 24HR. UA Prot. Total Volume 2225 mL; Urine Protein (24 Hour) 52.3 mg/dL (<11.9)
[2017-05-16 20:10] LABS: Creat.Clear Total Volume 2225 mL; Creatinine Clearance 30 ml/min (100-200); Creatinine Serum Creat 3.7 mg/dL (0.8-1.3); Creatinine Urine 71.4 mg/dL (NO RANGE EST.); EST Glomerular Filtration Rate 18 mL/min (>60); Est Glom Filt Rate - Afr Amer 22 mL/min (>60)
[2017-05-16] MEDS: Atorvastatin Calcium 40 MG Tablet PO (21:32)
[2017-05-17] VITALS (20 sets, daily range): BP systolic 118–143; BP diastolic 58–83; PULSE 66–121; RESP 14–22; TEMP 36.6–37.1; O2SAT 91–99
[2017-05-17] MEDS: diazePAM 5 MG Tablet 10 MG PO (00:57)
[2017-05-17] MEDS: Sodium Bicarbonate 75 MEQ in 0.45% Normal Saline 1,000 ML 75 ML IV (05:24)
[2017-05-17] MEDS: Sodium Bicarbonate 650 MG Tablet PO ×3 (05:28→22:30)
[2017-05-17 07:01] LABS: Bedside Glucose 386 mg/dL (70-110)
[2017-05-17 07:06] LABS: Bedside Glucose > 500 mg/dL (70-110)
[2017-05-17 07:06] LABS: Bedside Glucose > 500 mg/dL (70-110)
[2017-05-17] MEDS: Ipratropium/Albuterol Sulfate 3 ML AMPUL.NEB INHALATION ×3 (07:06→19:54)
--- NOTE | 2017-05-17 07:12 | PCM.PROGNOTE ---
Patient Problems: Active and Suspected Problems COPD with severe acute bronchitis (Acute) Acute on chronic blood loss anemia (Acute) Lower GI bleed (Acute) Acute hypoxic respiratory failure (Acute) Acute kidney injury (Acute) Non-STEMI (non-ST elevated myocardial infarction) (Acute) Subjective: The patient was seen and examined at the bedside this morning. Events from the last 24 hours have been reviewed. The patient is currently afebrile, hemodynamically stable and maintaining appropriate oxygen saturations on 2 L/min via nasal cannula. The patient is overall net positive just under 2 L for the admission. Blood sugars remain elevated. The patient has been tolerant of nocturnal BiPAP therapy. She reports improvement in his shortness of breath and his cough. Objective: The patient's most recent lab work, culture data and imaging studies have all been personally reviewed. Infectious workup has been revealing only for the presence of influenza B. Surface echocardiogram revealed normal LV size and thickness with a preserved ejection fraction of 65%. Nevertheless, there was evidence of stage II diastolic dysfunction with a right ventricular systolic pressure estimated to be 14 mmHg. Renal ultrasound was unremarkable. - Physical Exam General: Alert, Cooperative, No apparent distress HEENT: Atraumatic, PERRLA, Normocephalic Oral: Moist Mucosa, No Gingival or Mucosal Lesions/ Ulcerations Neck: Supple, No Nodes, Trachea Midline Lungs: No rhonchi, No wheeze, No rales, Diminished Cardiovascular: Regular rate, Regular Rhythm, Normal S1, Normal S2, No murmurs, No rub noted, No Gallop Abdomen: Bowel Sounds Present, Soft, Non Tender, Obese Extremities: No clubbing, No cyanosis, No edema Skin: - - No significant change from previous Musculoskeletal: No Tenderness to Palpation of Joints or Extremities, No Muscle Wasting Lymphatic: No Cervical, Supraclavicular, or Inguinal Adenopathy Neurological: Neuro grossly intact Psych/Mental Status: Normal Affect, Appropriate Vital Signs Temp Pulse Resp BP Pulse Ox 98.7 F 85 17 136/78 H 99 05/17/17 04:37 05/17/17 04:45 05/17/17 04:45 05/17/17 04:37 05/17/17 04:45 Oxygen Flow Rate 2 Oxygen Delivery Method Bi-pap Weight: 255 lb 15.307 oz Body Mass Index (BMI) 31.9 Intake and Output for Last 24 Hours 05/15/17 05/16/1718 23:59 23:59 23:59 Intake Total 1325 / 1325 3590 / 3590 1113 / 1113 Output Total 1250 / 1250 2300 / 2300 1000 / 1000 Balance 75 / 75 1290 / 1290 113 / 113 Microbiology Past 72 Hours 05/14/17 08:30 Gram Stain - Final Sputum, Expectorated/Coughed Respiratory Culture - Preliminary Streptococcus pneumoniae 05/14/17 07:50 Respiratory Panel (PCR) - Final Mucosa - Nasopharyngeal Influenzae B 05/14/17 08:30 Legionella Antigen - Final Urine Catheter - Hoff 05/14/17 08:27 Streptococcus pneumoniae Antigen (M - Final Urine Catheter - Hoff Laboratory Tests Past 24 Hrs 05/15/17 05/16/17 05/16/17 09:25 18:28 18:28 Creatinine 3.7 H Est GFR (MDRD) Af Amer 22 L Est GFR (MDRD) Non-Af 18 L Vitamin D 25-Hydroxy 12.9 L Urine Collection Time 24.0 24.0 Timed Urine Volume 2225 2225 Urine Creatinine 71.4 Creatinine Clearance 30 L Ur Total Protein 24 Hr 1163.7 H Urine Total Protein 52.3 H POC Glucose 05/17/17 05/16/17 05/16/17 06:53 21:16 21:15 POC Glucose 386 H > 500 H* > 500 H* 05/16/17 05/16/17 05/15/17 16:52 11:40 22:32 POC Glucose 470 H* 474 H* 466 H* 05/15/17 22:31 POC Glucose 477 H* Labs (Last 48 Hours) 05/14/17 05/15/17 05/15/17 05:50 09:25 09:25 WBC RBC Hgb Hct MCV MCH MCHC RDW RDW Differential Plt Count MPV Immature Gran % (Auto) Neut % (Auto) Lymph % (Auto) [place] % (Auto) Eos % (Auto) Baso % (Auto) Absolute Neuts (auto) Absolute Lymphs (auto) Total Counted Nucleated RBC % Differential Comment Platelet Estimate Hypochromasia Anisocytosis Absolute Retic Sodium Potassium Chloride Carbon Dioxide Anion Gap BUN Creatinine Estim Creat Clear Calc Est GFR (MDRD) Af Amer Est GFR (MDRD) Non-Af BUN/Creatinine Ratio Glucose Calcium Phosphorus Magnesium Vitamin D 25-Hydroxy 12.9 L PTH Intact 143.5 H Urine Collection Time Timed Urine Volume Urine Creatinine Creatinine Clearance Ur Total Protein 24 Hr Urine Total Protein POC Glucose Crossmatch See Detail 05/15/17 05/15/17 05/15/17 10:58 11:45 16:50 WBC 20.6 H RBC 3.60 L Hgb 8.2 L Hct 27.0 L MCV 75.0 L MCH 22.8 L MCHC 30.4 L RDW 20.2 H RDW Differential 55.3 H Plt Count 225 MPV TNP Immature Gran % (Auto) 0.100 Neut % (Auto) 95.4 H Lymph % (Auto) 3.0 L [place] % (Auto) 1.5 Eos % (Auto) 0.0 Baso % (Auto) 0.0 Absolute Neuts (auto) 19.7 H Absolute Lymphs (auto) 0.61 L Total Counted Not Reportable Nucleated RBC % 0.3 Differential Comment Platelet Estimate ADEQUATE Hypochromasia 2+ Anisocytosis 1+ Absolute Retic 0.07 Sodium Potassium Chloride Carbon Dioxide Anion Gap BUN Creatinine Estim Creat Clear Calc Est GFR (MDRD) Af Amer Est GFR (MDRD) Non-Af BUN/Creatinine Ratio Glucose Calcium Phosphorus Magnesium Vitamin D 25-Hydroxy PTH Intact Urine Collection Time Timed Urine Volume Urine Creatinine Creatinine Clearance Ur Total Protein 24 Hr Urine Total Protein POC Glucose 295 H 414 H Crossmatch 05/15/17 05/15/17 05/16/17 22:31 22:32 05:30 WBC 14.7 H RBC 3.61 L Hgb 8.1 L Hct 27.4 L MCV 75.9 L MCH 22.4 L MCHC 29.6 L RDW 20.7 H RDW Differential 57.0 H Plt Count 220 MPV Immature Gran % (Auto) Neut % (Auto) Lymph % (Auto) [place] % (Auto) Eos % (Auto) Baso % (Auto) Absolute Neuts (auto) Absolute Lymphs (auto) Total Counted Nucleated RBC % Differential Comment SCAN Platelet Estimate Hypochromasia Anisocytosis Absolute Retic Sodium Potassium Chloride Carbon Dioxide Anion Gap BUN Creatinine Estim Creat Clear Calc Est GFR (MDRD) Af Amer Est GFR (MDRD) Non-Af BUN/Creatinine Ratio Glucose Calcium Phosphorus Magnesium Vitamin D 25-Hydroxy PTH Intact Urine Collection Time Timed Urine Volume Urine Creatinine Creatinine Clearance Ur Total Protein 24 Hr Urine Total Protein POC Glucose 477 H* 466 H* Crossmatch 05/16/17 05/16/17 05/16/17 05:30 06:59 11:40 WBC RBC Hgb Hct MCV MCH MCHC RDW RDW Differential Plt Count MPV Immature Gran % (Auto) Neut % (Auto) Lymph % (Auto) [place] % (Auto) Eos % (Auto) Baso % (Auto) Absolute Neuts (auto) Absolute Lymphs (auto) Total Counted Nucleated RBC % Differential Comment Platelet Estimate Hypochromasia Anisocytosis Absolute Retic Sodium 132 L Potassium 5.3 H Chloride 105 Carbon Dioxide 16.0 L Anion Gap 11 BUN 90 H Creatinine 3.67 H Estim Creat Clear Calc 23.59 Est GFR (MDRD) Af Amer 22 L Est GFR (MDRD) Non-Af 18 L BUN/Creatinine Ratio 24.5 H Glucose 440 H Calcium 7.7 L Phosphorus 5.5 H Magnesium 2.8 H Vitamin D 25-Hydroxy PTH Intact Urine Collection Time Timed Urine Volume Urine Creatinine Creatinine Clearance Ur Total Protein 24 Hr Urine Total Protein POC Glucose 423 H 474 H* Crossmatch 05/16/17 05/16/17 05/16/17 16:52 18:28 18:28 WBC RBC Hgb Hct MCV MCH MCHC RDW RDW Differential Plt Count MPV Immature Gran % (Auto) Neut % (Auto) Lymph % (Auto) [place] % (Auto) Eos % (Auto) Baso % (Auto) Absolute Neuts (auto) Absolute Lymphs (auto) Total Counted Nucleated RBC % Differential Comment Platelet Estimate Hypochromasia Anisocytosis Absolute Retic Sodium Potassium Chloride Carbon Dioxide Anion Gap BUN Creatinine 3.7 H Estim Creat Clear Calc Est GFR (MDRD) Af Amer 22 L Est GFR (MDRD) Non-Af 18 L BUN/Creatinine Ratio Glucose Calcium Phosphorus Magnesium Vitamin D 25-Hydroxy PTH Intact Urine Collection Time 24.0 24.0 Timed Urine Volume 2225 2225 Urine Creatinine 71.4 Creatinine Clearance 30 L Ur Total Protein 24 Hr 1163.7 H Urine Total Protein 52.3 H POC Glucose 470 H* Crossmatch 05/16/17 05/16/17 05/17/17 21:15 21:16 06:53 WBC RBC Hgb Hct MCV MCH MCHC RDW RDW Differential Plt Count MPV Immature Gran % (Auto) Neut % (Auto) Lymph % (Auto) [place] % (Auto) Eos % (Auto) Baso % (Auto) Absolute Neuts (auto) Absolute Lymphs (auto) Total Counted Nucleated RBC % Differential Comment Platelet Estimate Hypochromasia Anisocytosis Absolute Retic Sodium Potassium Chloride Carbon Dioxide Anion Gap BUN Creatinine Estim Creat Clear Calc Est GFR (MDRD) Af Amer Est GFR (MDRD) Non-Af BUN/Creatinine Ratio Glucose Calcium Phosphorus Magnesium Vitamin D 25-Hydroxy PTH Intact Urine Collection Time Timed Urine Volume Urine Creatinine Creatinine Clearance Ur Total Protein 24 Hr Urine Total Protein POC Glucose > 500 H* > 500 H* 386 H Crossmatch Microbiology 05/14/17 05:50 Blood Culture (Wb) #2 - Anticubital Left Blood Culture - Preliminary No growth in 48 hours. 05/14/17 05:10 Blood Culture (Wb) - Arm Left Blood Culture - Preliminary No growth in 48 hours. 05/14/17 08:30 Sputum, Expectorated/Coughed Gram Stain - Final 05/14/17 08:30 Sputum, Expectorated/Coughed Respiratory Culture - Preliminary Streptococcus pneumoniae Clinical Impression(s) from Imaging Studies Chest X-Ray 05/14/17 04:53 IMPRESSION: There is suboptimal inspiration There are bibasilar infiltrates and small effusions larger on the RIGHT. There is NO pneumothorax. Heart is borderline enlarged. Electronically Signed: Ryan Mejia MD at 6:22 EST , Service support , Renal Ultrasound 05/14/17 09:35 IMPRESSION: Normal ultrasound of the kidneys. Electronically Signed: Herbert Carroll MD at 13:09 EST Tel [phone], Service support , Chest X-Ray 05/15/17 05:55 IMPRESSION: There is suboptimal inspiration. There are bibasilar infiltrates greater on the RIGHT. There is a small RIGHT pleural effusion. There is NO pneumothorax. There is borderline enlarged. Electronically Signed: Ryan Mejia MD at 4:30 EST , Service support , Assessment/Plan Active and Suspected Problems COPD with severe acute bronchitis (Acute) Acute on chronic blood loss anemia (Acute) Lower GI bleed (Acute) Acute hypoxic respiratory failure (Acute) Acute kidney injury (Acute) Non-STEMI (non-ST elevated myocardial infarction) (Acute) RECOMMENDATIONS: 1. Continue antibiotics to complete a 7 day treatment course. 2. Continue Tamiflu 3. Continue scheduled aerosol treatments and prednisone 4. Wean supplemental oxygen and mobilize patient as tolerated 5. Encourage incentive spirometer use 6. Empiric BiPAP therapy nightly 7. Recommend outpatient pulmonary follow-up within 2 weeks of his discharge from the hospital. IMPRESSIONS: 1. Severe sepsis secondary to community-acquired pneumonia/influenza B The patient is improving clinically. Plan to continue antibiotics and Tamiflu, accordingly. Recommend completing a 7 day treatment course of antibiotics. The patient's steroids were transitioned to prednisone 40 mg daily by mouth. Would plan to taper over the next 12 days. Continue to wean supplemental oxygen as tolerated. Encourage incentive spirometer use and mobilize patient as tolerated. 2. Acute hypoxemic respiratory failure likely secondary to underlying COPD with exacerbation The patient responded initially to BiPAP therapy. We will plan to continue scheduled aerosol treatments along with steroids as ordered. The patient refused to allow for his prior Dr. Fung records to be obtained. It is unclear whether or not he has had PFTs, and if so, how severe his COPD is. He does not seem overtly interested in following up in the pulmonary medicine clinic. However, this is strongly recommended. Perform walking oximetry study prior to consideration for discharge from the hospital. Follow-up with the pulmonary medicine clinic with our nurse practitioner within 2 weeks of his discharge. 3. Microcytic anemia likely secondary to chronic NSAID utilization Continue to monitor blood counts daily. Avoid NSAIDs in the future. Continue daily PPI therapy. Transfuse if hemoglobin drops below 7 g/dL. 4. Personal history of obstructive sleep apnea, noncompliant with nocturnal PAP therapy Continue empiric BiPAP utilization with naps and nightly. Would strongly recommend that the patient follow-up in the pulmonary medicine clinic so that a re-titration study can be completed. This note was generated with [employer] software. It may contain incorrect words, spelling, and punctuation that were not noted in checking the note before signing. Code Visit Inpatient E&M: 77281 Subs Hosp L2
[2017-05-17] MEDS: Calcium Acetate 667 MG Capsule PO ×3 (08:36→16:17)
[2017-05-17] MEDS: Allopurinol 300 MG Tablet 150 MG PO (08:37)
[2017-05-17 08:48] LABS: Hematocrit 32.7 % (40-54); Hemoglobin 9.8 g/dl (13.0-16.5)
[2017-05-17] MEDS: Isosorbide Mononitrate 30 MG Tablet PO (09:36)
[2017-05-17] MEDS: Finasteride 5 MG Tablet PO (09:36)
[2017-05-17] MEDS: Pantoprazole Sodium 40 MG Tablet PO ×2 (09:37→22:30)
[2017-05-17] MEDS: Oseltamivir Phosphate 30 MG Capsule PO (09:37)
[2017-05-17] MEDS: Metoprolol(XL)Succ 50 MG Tablet PO (09:38)
[2017-05-17 09:47] LABS: Anion Gap 11 (5-15); BUN 87 mg/dL (7-18); BUN/Creat Ratio 24.9 RATIO (10-20); Chloride 105 mmol/L (98-107); Cholesterol 114 mg/dL (200); EST Glomerular Filtration Rate 19 mL/min (>60); Est Glom Filt Rate - Afr Amer 23 mL/min (>60); Estimated Creatinine Clearance 24.73 ml/min; Glucose 355 mg/dL (74-106); High Density Lipoprotein 37 mg/dL; Potassium 5.5 mmol/L (3.5-5.1); Sodium Level 135 mmol/L (136-145); Triglycerides 279 mg/dL; Very Low Density Lipoprotein 56 mg/dL (5-40)
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
[2017-05-17] MEDS: Sodium Polystyrene Sulfonate 15 GM/60 ML UDC 30 GM PO (11:16)
[2017-05-17 11:46] LABS: Bedside Glucose 306 mg/dL (70-110)
[2017-05-17] MEDS: Sodium Bicarbonate 75 MEQ in 0.45% Normal Saline 1,000 ML IV (16:12)
[2017-05-17] MEDS: Tamsulosin HCl 0.4 MG Capsule PO (16:18)
[2017-05-17 16:30] LABS: Bedside Glucose 291 mg/dL (70-110)
[2017-05-17] MEDS: Atorvastatin Calcium 40 MG Tablet PO (22:30)
[2017-05-17 22:41] LABS: Bedside Glucose 245 mg/dL (70-110)
[2017-05-18] VITALS (11 sets, daily range): BP systolic 140–154; BP diastolic 73–82; PULSE 81–102; RESP 18–21; TEMP 36.6–36.9; O2SAT 96–98
[2017-05-18] MEDS: Sodium Bicarbonate 650 MG Tablet PO ×2 (05:50→14:53)
[2017-05-18] MEDS: Sodium Bicarbonate 75 MEQ in 0.45% Normal Saline 1,000 ML IV (05:51)
[2017-05-18 06:56] LABS: Bedside Glucose 112 mg/dL (70-110)
--- NOTE | 2017-05-18 06:57 | PCM.PROGNOTE ---
Patient Problems: Active and Suspected Problems COPD with severe acute bronchitis (Acute) Acute on chronic blood loss anemia (Acute) Lower GI bleed (Acute) Acute hypoxic respiratory failure (Acute) Acute kidney injury (Acute) Non-STEMI (non-ST elevated myocardial infarction) (Acute) Subjective: The patient was seen and examined at the bedside this morning. Events from the last 24 hours have been reviewed. The patient is currently afebrile, hemodynamically stable and maintaining appropriate oxygen saturations on room air. The patient did not utilize BiPAP overnight. Instead, an overnight oximetry study was performed. The patient reports that he feels as if his breathing quality is at baseline. He is quite verbal that he does not wish to follow-up in the pulmonary medicine clinic, nor does he wish to utilize nocturnal PAP therapy on an outpatient basis. Objective: The patient's most recent lab work, culture data and imaging studies have all been personally reviewed. Infectious workup has been revealing only for the presence of influenza B. Surface echocardiogram revealed normal LV size and thickness with a preserved ejection fraction of 65%. Nevertheless, there was evidence of stage II diastolic dysfunction with a right ventricular systolic pressure estimated to be 14 mmHg. Renal ultrasound was unremarkable. - Physical Exam General: Alert, Cooperative, No apparent distress HEENT: Atraumatic, PERRLA, Normocephalic Oral: Moist Mucosa, No Gingival or Mucosal Lesions/ Ulcerations Neck: Supple, No Nodes, Trachea Midline Lungs: No rhonchi, No wheeze, No rales, Diminished, - - Mild conversational dyspnea Cardiovascular: Regular rate, Regular Rhythm, Normal S1, Normal S2, No murmurs Abdomen: Bowel Sounds Present, Soft, Non Tender, Obese Extremities: No clubbing, No cyanosis, No edema Musculoskeletal: No Tenderness to Palpation of Joints or Extremities, No Muscle Wasting Lymphatic: No Cervical, Supraclavicular, or Inguinal Adenopathy Neurological: Neuro grossly intact Psych/Mental Status: Normal Affect, Appropriate Vital Signs Temp Pulse Resp BP Pulse Ox 98.5 F 84 18 140/82 H 96 05/18/17 03:25 05/18/17 03:25 05/18/17 03:25 05/18/17 03:25 05/18/17 03:25 Oxygen Flow Rate 2 Oxygen Delivery Method Room Air Weight: 253 lb 8.505 oz Body Mass Index (BMI) 31.9 Intake and Output for Last 24 Hours 05/16/17 05/17/17 05/18/17 23:59 23:59 23:59 Intake Total 3590 / 3590 2263 / 2263 1919 / 1919 Output Total 2300 / 2300 1400 / 1400 1450 / 1450 Balance 1290 / 1290 863 / 863 469 / 469 Microbiology Past 72 Hours 05/17/17 06:50 Stool Occult Blood (ИВАН) - Final Stool Occult Blood Positive 05/14/17 08:30 Gram Stain - Final Sputum, Expectorated/Coughed Respiratory Culture - Final Streptococcus pneumoniae Mixed Culture Laboratory Tests Past 24 Hrs 05/17/17 05/17/17 05/18/17 08:12 08:12 06:07 Hgb 9.8 L Hct 32.7 L Sodium 135 L Pending Potassium 5.5 H Pending Chloride 105 Pending Carbon Dioxide 19.0 L Pending Anion Gap 11 BUN 87 H Pending Creatinine 3.50 H Pending Estim Creat Clear Calc 24.73 Est GFR (MDRD) Af Amer 23 L Pending Est GFR (MDRD) Non-Af 19 L Pending BUN/Creatinine Ratio 24.9 H Pending Glucose 355 H Pending Calcium 8.0 L Pending Phosphorus 4.0 Pending Albumin Pending Triglycerides 279 H Cholesterol 114 LDL Cholesterol 21 VLDL Cholesterol 56 H HDL Cholesterol 37 L 05/18/17 06:07 Hgb Pending Hct Pending Sodium Potassium Chloride Carbon Dioxide Anion Gap BUN Creatinine Estim Creat Clear Calc Est GFR (MDRD) Af Amer Est GFR (MDRD) Non-Af BUN/Creatinine Ratio Glucose Calcium Phosphorus Albumin Triglycerides Cholesterol LDL Cholesterol VLDL Cholesterol HDL Cholesterol POC Glucose 05/18/17 05/17/17 05/17/17 06:49 22:25 16:14 POC Glucose 112 H 245 H 291 H 05/17/17 05/17/17 05/16/17 11:19 06:53 21:16 POC Glucose 306 H 386 H > 500 H* 05/16/17 21:15 POC Glucose > 500 H* Clinical Impression(s) from Imaging Studies Chest X-Ray 05/14/17 04:53 IMPRESSION: There is suboptimal inspiration There are bibasilar infiltrates and small effusions larger on the RIGHT. There is NO pneumothorax. Heart is borderline enlarged. Electronically Signed: Ryan Mejia MD at 6:22 EST , Service support , Renal Ultrasound 05/14/17 09:35 IMPRESSION: Normal ultrasound of the kidneys. Electronically Signed: Herbert Carroll MD at 13:09 EST Tel [phone], Service support , Chest X-Ray 05/15/17 05:55 IMPRESSION: There is suboptimal inspiration. There are bibasilar infiltrates greater on the RIGHT. There is a small RIGHT pleural effusion. There is NO pneumothorax. There is borderline enlarged. Electronically Signed: Ryan Mejia MD at 4:30 EST , Service support , Assessment/Plan Active and Suspected Problems COPD with severe acute bronchitis (Acute) Acute on chronic blood loss anemia (Acute) Lower GI bleed (Acute) Acute hypoxic respiratory failure (Acute) Acute kidney injury (Acute) Non-STEMI (non-ST elevated myocardial infarction) (Acute) RECOMMENDATIONS: 1. Continue antibiotics to complete a 7 day treatment course. 2. Continue Tamiflu 3. Continue scheduled aerosol treatments and prednisone 4. Wean supplemental oxygen and mobilize patient as tolerated 5. Encourage incentive spirometer use 6. Empiric BiPAP therapy nightly 7. Recommend outpatient pulmonary follow-up within 2 weeks of his discharge from the hospital. IMPRESSIONS: 1. Severe sepsis secondary to community-acquired pneumonia/influenza B The patient is improving clinically. Plan to continue antibiotics and Tamiflu, accordingly. Recommend completing a 7 day treatment course of antibiotics. The patient's steroids were transitioned to prednisone 40 mg daily by mouth. Would plan to taper over the next 12 days. Continue to wean supplemental oxygen as tolerated. Encourage incentive spirometer use and mobilize patient as tolerated. 2. Acute hypoxemic respiratory failure likely secondary to underlying COPD with exacerbation The patient responded initially to BiPAP therapy. We will plan to continue scheduled aerosol treatments along with steroids as ordered. The patient refused to allow for his prior Dr. Fung records to be obtained. It is unclear whether or not he has had PFTs, and if so, how severe his COPD is. He does not seem overtly interested in following up in the pulmonary medicine clinic. However, this is strongly recommended. Perform walking oximetry study prior to consideration for discharge from the hospital. Follow-up with the pulmonary medicine clinic with our nurse practitioner within 2 weeks of his discharge. 3. Microcytic anemia likely secondary to chronic NSAID utilization Continue to monitor blood counts daily. Avoid NSAIDs in the future. Continue daily PPI therapy. Transfuse if hemoglobin drops below 7 g/dL. 4. Personal history of obstructive sleep apnea, noncompliant with nocturnal PAP therapy Continue empiric BiPAP utilization with naps and nightly. Would strongly recommend that the patient follow-up in the pulmonary medicine clinic so that a re-titration study can be completed. This note was generated with [employer] dictation software. It may contain incorrect words, spelling, and punctuation that were not noted in checking the note before signing. We will sign off at this time. Please call with any additional questions. Code Visit Inpatient E&M: 12770 Subs Hosp L2
[2017-05-18] MEDS: Ipratropium/Albuterol Sulfate 3 ML AMPUL.NEB INHALATION (06:58)
[2017-05-18 08:39] LABS: Albumin, Serum 2.5 g/dL (3.2-5.0); BUN 77 mg/dL (7-18); BUN/Creat Ratio 29.6 RATIO (10-20); Calcium,Total 7.6 mg/dL (8.5-10.1); Chloride 110 mmol/L (98-107); EST Glomerular Filtration Rate 27 mL/min (>60); Est Glom Filt Rate - Afr Amer 32 mL/min (>60); Estimated Creatinine Clearance 33.29 ml/min; Glucose 104 mg/dL (74-106); Phosphorus 3.9 mg/dL (2.5-4.9); Potassium 4.4 mmol/L (3.5-5.1); Sodium Level 142 mmol/L (136-145)
[2017-05-18] MEDS: Calcium Acetate 667 MG Capsule PO (08:59)
[2017-05-18] MEDS: Allopurinol 300 MG Tablet 150 MG PO (09:02)
[2017-05-18] MEDS: Finasteride 5 MG Tablet PO (10:39)
[2017-05-18] MEDS: Metoprolol(XL)Succ 50 MG Tablet PO (10:39)
[2017-05-18] MEDS: Pantoprazole Sodium 40 MG Tablet PO (10:39)
[2017-05-18] MEDS: Isosorbide Mononitrate 30 MG Tablet PO (10:39)
[2017-05-18] MEDS: Oseltamivir Phosphate 30 MG Capsule PO (10:39)
[2017-05-18 11:41] LABS: Bedside Glucose 123 mg/dL (70-110)
--- NOTE | 2017-05-18 16:23 | PCM.PN.BLA ---
Progress Note Overnight trending pulse ox with saturations as low as 72% overnight. The pulse ox stayed 88 and above 1 2-3 L of nasal O2 was applied. He is ambulatory in his home. He will need a concentrator and portable oxygen with extension tubing for ambulating in the home. His diagnoses include: COPD with chronic bronchitis J44.9
--- NOTE | 2017-05-18 16:49 | PCM.DC ---
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) 12/01/09 Lower GI bleed (Acute) Acute hypoxic respiratory failure (Acute) Chronic left upper extremity numbness (Chronic) Hypertension (Chronic) Acute kidney injury (Acute) Diabetes mellitus type 2 in obese (Chronic) Non-STEMI (non-ST elevated myocardial infarction) (Acute) You will use the following diet at home:: Calorie/Carbohydrate Controlled (specify 1200, 1400, etc), Cardiac Your food should be the consistency of: Regular Your liquids should be the consistency of: Regular/Thin Discharge Activity: - - Avoid exposure to any strong smells such as bleach, cleaning products, strong colognes or perfumes, paint fumes and smoke of any kind. Avoid sudden exposure to cold air because this can cause bronchospasm. You may want to cover your mouth when you go outside in the winter. Avoid exposure to anyone who is sick with a cough or sore throat. Call your doctor if you observe: Fever of 101 or Higher, Inability to urinate, Inability to have a bowel movement, Shortness of breath, Fainting spells, Swelling in the ankles, Chest pain, - - Call your PCP if severe diarrhea, painful sores in the mouth, painful swallowing, rash or itching. Instructions: Continuous Positive Air Pressure (CPAP), What Are Snoring and Sleep Apnea? Additional Instructions: You have a lot of Health problems. Quitting smoking was a great idea! Good work! The CPAP is VERY Important. You would be much better if you wore it. Your oxygen drops very low at night when you are not on the CPAP and this can lead to a sudden cardiac from a fatal dysrhythmia. It is also associated with being sleepy all the time, poor memory, restless leg, high BP's in the lungs etc. I think you should follow up with Dr. Barlow in the office......if you work together with him he may be able to find a machine that works for you and if you wear the CPAP we may be able to give you something to help you sleep with the CPAP on. You will need to wear the oxygen ANYTIME you are sleeping. I am also prescribing an aerosol machine for you to use 3-4 times a day every day to help with the breathing. Keep up your efforts to improve your diet and get your blood sugars under control. You had a small heart attack and you need to get a stress test done when your breathing is better. I am going to have you follow up with Dr. Leahy in the office in [address] Chavez could also order a stress test if you prefer to follow up with him. Your kidneys are not working well. There are 5 stages of kidney failure and you are in stage 4. I think you should follow up with Dr. Magana, the kidney specialist you saw in the hospital. We decreased the dose of some of the medications you were taking because of the kidney failure. You have blood in your bowel movements....possibly due to all the Meloxicam and Mobic and Motrin and aspirin. I think you need to have someone look in your colon and your stomach to see wear the blood loss is coming from. Dr. Chavez can refer you to someone to do this. You need to start thinking about whether you would ever want to have a tube down your throat and be put on a machine to breath for you......you almost had to have that this time and it will happen in the future, melissa if you continue not to wear the CPAP. You may want to have a discussion with Dr. Leal about code Status....this is what you would want done in the event that you stopped breathing or you had a cardiac arrest. Pending Tests on Discharge: none Allergies/Adverse Reactions: Allergies No Known Allergies Allergy (Verified 05/14/17 05:00) Medications to take at Discharge Albuterol Inhaler [Ventolin Hfa] 1 - 2 puff INHALATION Q6H PRN PRN 05/14/17 Aspirin 81 mg PO DAILY 05/14/17 Clopidogrel Bisulfate [Clopidogrel] 75 mg PO DAILY 05/14/17 Insulin Aspart [Novolog Flexpen] See Protocol SC TIDCM 05/14/17 Insulin Degludec [Tresiba Flextouch U-100] 60 unit SC BID 05/14/17 Lisinopril [Zestril] 40 mg PO DAILY 05/14/17 Nitroglycerin [Nitrostat] 0.4 mg SUBLINGUAL Q5M PRN 05/14/17 Oxycodone [Oxyir] 5 mg PO BID PRN PRN 05/14/17 Simvastatin 80 mg PO QHS 05/14/17 Acetaminophen [Tylenol Tablet] 650 mg PO Q4H PRN PRN tablet 05/18/17 Albuterol Aerosols [Ventolin Aerosols] 2.5 mg INHALATION UD #120 vial.neb. 05/18/17 Allopurinol [Zyloprim] 150 mg PO DAILYCM #16 tablet 05/18/17 Amoxicillin/Potassium Clav [Augmentin 500-125 Tablet] 1 ea PO BID #14 tab 05/18/17 Cilostazol 50 mg PO BID #15 tab 05/18/17 Ergocalciferol [Vitamin D] 50,000 unit PO Q7D #12 cap 05/18/17 Finasteride [Proscar] 5 mg PO DAILY #30 tab 05/18/17 HydrALAZINE [Apresoline] 25 mg PO TID #90 tab 05/18/17 Isosorbide Mononitrate [Imdur] 30 mg PO DAILY #30 tab 05/18/17 Metoprolol(XL)Succ [Toprol Xl (Beta Vanesa)] 50 mg PO DAILY #30 tab 05/18/17 Nebulizer [Aeroneb Go Nebulizer] 1 ea MC 4X/DAY #1 ea 05/18/17 Oxygen, Home [Home Oxygen] 2 - 3 lpm NASAL UD #1 unit 05/18/17 Pantoprazole Sodium [Protonix] 40 mg PO DAILY #30 tab 05/18/17 Prednisone 10 mg PO UD #30 tab 05/18/17 Sodium Bicarbonate 650 mg PO TID #90 tab 05/18/17 Tamsulosin HCl [Flomax] 0.4 mg PO DAILY@1730 #30 cap 05/18/17 The following prescriptions were given: Albuterol Aerosols [Ventolin Aerosols] 2.5 mg INHALATION UD #120 vial.neb. Ergocalciferol [Vitamin D] 50,000 unit PO Q7D #12 cap Finasteride [Proscar] 5 mg PO DAILY #30 tab Isosorbide Mononitrate [Imdur] 30 mg PO DAILY #30 tab Metoprolol(XL)Succ [Toprol Xl (Beta Vanesa)] 50 mg PO DAILY #30 tab Oxygen, Home [Home Oxygen] 2 - 3 lpm NASAL UD #1 unit Pantoprazole Sodium [Protonix] 40 mg PO DAILY #30 tab Prednisone 10 mg PO UD #30 tab Tamsulosin HCl [Flomax] 0.4 mg PO DAILY@1730 #30 cap Amoxicillin/Potassium Clav [Augmentin 500-125 Tablet] 1 ea PO BID #14 tab Cilostazol 50 mg PO BID #15 tab HydrALAZINE [Apresoline] 25 mg PO TID #90 tab Sodium Bicarbonate 650 mg PO TID #90 tab Nebulizer [Aeroneb Go Nebulizer] 1 ea MC 4X/DAY #1 ea Primary Care Physician: Caesar Chavez DO [Primary Care Provider] - Please follow up with your Primary Care Physician in: 3-5 days Please Follow Up With: Jensen Leahy MD When: 2-3 weeks Please Follow Up With: Daysi Magana DO When: 2 weeks Please Follow Up With: Nahun Barlow DO When: 2 weeks with Loan to arrange PFT's and a new sleep study Proposed Discharge Date: 05/18/17
[2017-05-18] MEDS: Tamsulosin HCl 0.4 MG Capsule PO (16:52)
[2017-05-18 17:01] LABS: Bedside Glucose 71 mg/dL (70-110)
--- NOTE | 2017-05-18 17:24 | PCM.DC.SUM ---
Discharge Date and Diagnosis Date of Admission: 05/14/17 Date of Discharge: 05/18/17 - Primary Discharge Diagnosis Active and Suspected Problems Severe sepsis (Acute) Acute respiratory failure with hypoxemia (Acute) Influenza B (Acute) Streptococcal pneumonia (Acute) Acute exacerbation of chronic obstructive pulmonary disease (COPD) (Acute) Acute renal failure superimposed on stage 4 chronic kidney disease (Acute) Paroxysmal atrial fibrillation (Acute) with RVR - converted Heme + stool (Acute) Metabolic acidosis (Acute) Non-STEMI (non-ST elevated myocardial infarction) (Acute) Hyperphosphatemia - Secondary Discharge Diagnosis Chronic Problems Radiculopathy affecting upper extremity (Chronic) - left NSAID long-term use (Chronic) - Meloxicam, Mobic, Motrin and ASA Uncontrolled diabetes mellitus (Chronic) - HGBA1C 9.6 Iron deficiency anemia (Chronic) ferritin is 8 and he has heme + stool Urinary retention due to benign prostatic hyperplasia (Chronic) - started on Flomax and Proscar Increased PTH level (Chronic) - due to CRF stage 4 Low vitamin D level (Chronic) Chronic renal failure, stage 4 (severe) (Chronic) Nocturnal hypoxia (Chronic) Noncompliance with CPAP treatment (Chronic) LADARIUS (obstructive sleep apnea) (Chronic) Gout (Chronic) History of tobacco abuse (Chronic) quit in 2017 Hx of CABG (Chronic) 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 There is NO pneumothorax. Heart is borderline enlarged. Electronically Signed: Ryan Mejia MD at 6:22 EST , Service support , Renal Ultrasound 05/14/17 09:35 IMPRESSION: Normal ultrasound of the kidneys. Electronically Signed: Herbert Carroll MD at 13:09 EST Tel [phone], Service support , Chest X-Ray 05/15/17 05:55 IMPRESSION: There is suboptimal inspiration. There are bibasilar infiltrates greater on the RIGHT. There is a small RIGHT pleural effusion. There is NO pneumothorax. There is borderline enlarged. Electronically Signed: Ryan Mejia MD at 4:30 EST , Service support , Microbiology 05/17/17 06:50 Stool Stool Occult Blood (ИВАН) - Final Occult Blood Positive 05/14/17 08:30 Sputum, Expectorated/Coughed Gram Stain - Final 05/14/17 08:30 Sputum, Expectorated/Coughed Respiratory Culture - Final Streptococcus pneumoniae Mixed Culture 05/14/17 05:50 Blood Culture (Wb) #2 - Anticubital Left Blood Culture - Preliminary No growth in 48 hours. 05/14/17 05:10 Blood Culture (Wb) - Arm Left Blood Culture - Preliminary No growth in 48 hours. 05/14/17 07:50 Mucosa - Nasopharyngeal Respiratory Panel (PCR) - Final Influenzae B 05/14/17 08:30 Urine Catheter - Hoff Legionella Antigen - Final 05/14/17 08:27 Urine Catheter - Hoff Streptococcus pneumoniae Antigen (M - Final 05/14/17 04:58 Mucosa - Nasopharyngeal Influenza Types A,B Direct FA (ИВАН) - Final Laboratory Results - last 24 hr 05/17/17 05/18/17 05/18/17 22:25 06:07 06:07 Hgb 9.0 L Hct 30.0 L Sodium 142 Potassium 4.4 Chloride 110 H Carbon Dioxide 22.0 BUN 77 H Creatinine 2.60 H Estim Creat Clear Calc 33.29 Est GFR (MDRD) Af Amer 32 L Est GFR (MDRD) Non-Af 27 L BUN/Creatinine Ratio 29.6 H Glucose 104 Calcium 7.6 L Phosphorus 3.9 Albumin 2.5 L POC Glucose 245 H 05/18/17 05/18/17 05/18/17 06:49 11:36 16:50 Hgb Hct Sodium Potassium Chloride Carbon Dioxide BUN Creatinine Estim Creat Clear Calc Est GFR (MDRD) Af Amer Est GFR (MDRD) Non-Af BUN/Creatinine Ratio Glucose Calcium Phosphorus Albumin POC Glucose [address] Jensen Leahy - [facility] Dr. 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 Daysi Magana - Nephrology Operations: None Procedures: 2-D Echocardiogram - EF 65%, stage II diastolic dysfunction Summary of Care Provided: Mr. 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 The cough was productive of clear sputum. He denied N/V/abdominal pain. Denied hx of PUD. He had never had a colonoscopy or a EGD. He was taking Meloxicam QOD and Mobic everyday and ASA. He denied weight loss and also denied FH of colon CA. He did c/o chest pain and numbness in the left arm and this resolved with NTG. Vital signs at presentation to the emergency room were temp 100.9?F, pulse rate 151, blood pressure 185/92, respiratory rate 37 and he was 97% saturated on a 5 L nasal cannula. White blood cell count was 12.9 with 84% neutrophils. Hemoglobin was 6.3 with an MCV of 71.6 and platelets were 407,000. An ABG done on 5 L nasal cannula showed pH 7.32, PCO2 30 and PO2 92. The serum bicarb was low at 19 and the anion gap was 13. BUN was 67 with a creatinine of 3.25 and he denied any history of chronic kidney disease. The blood sugar was 80. Lactic acid was elevated at 2.4 and troponin was elevated at 0.39. BNP was 35.2. EKG showed sinus tachycardia with nonspecific ST and T-wave changes. Chest x-ray was reported as bilateral infiltrates. Influenza swab was negative and respiratory panel and blood cultures were ordered. He was given Zosyn and vancomycin in the emergency room and received 2 L of normal saline. He also received 40 mg of pantoprazole IV, 125 mg Solu-medrol and aerosolized bronchodilators. He was admitted to the ICU and Dr. Barlow was consulted. Dr. Leahy was also consulted. The respiratory panel was positive for Influenza B and he was started on Tamiflu. BIPAP was applied and he tolerated this well and did not require intubation. He was started on Solu-medrol 40 mg Q 6H. The sputum culture was + for Strep pneumoniae even though the urine for streptococcal antigen was negative. He was started on Rocephin. He was seen by Dr. Leahy who recommended transfusing the patient and maintaining a hemoglobin of at least 8. He also recommended continuing baby aspirin but holding Plavix. He had a brief episode of AF that resolved without tx other than ELYTE replacement. Dr. Leahy recommended a Stress test when the respiratory status was optimized to evaluate for any areas of ischemia, particularly of the anterior and lateral territories which is where the previous stents were done. Creat failed to significantly improve with hydration and Dr. Daysi Magana was consulted. She felt he likely had stage 3 progressive diabetic nephropathy with possible acute component and recommended holding the ACEi and NSAID's. The creat did not significantly change until the day of DC and it was 2.6 on that date.....this may be dilutional. Prior to DC he had an overnight trending pulse ox and he dropped to 72% without BIPAP and he was prescribed Nocturnal oxygen at DC. He will not wear the BIPAP because it makes too much noise and he can not sleep. I did recommend to him that he follow up in the office with Dr. Barlow post discharge to order a sleep study and PFT's. He was discharged on 05/18 and given RX's for Augmentin, Prednisone taper, a nebulizer and Albuterol soln, Metoprolol, Oxygen, Tamulosin and Proscar, Vitamin D and a decreased dose of Pletal due to the CRF. He will follow up with Dr. Chavez in the office in 3-5 days, with Dr. Leahy in 2-3 weeks, Dr. Magana in [address] Barlow in 2 weeks. He will discuss a referral for a stress test with Dr. Chavez. This note was generated with [employer] dictation software. It may contain incorrect words, spelling, and punctuation that were not noted in checking the note before signing. Discharge Activity: - - Avoid exposure to any strong smells such as bleach, cleaning products, strong colognes or perfumes, paint fumes and smoke of any kind. Avoid sudden exposure to cold air because this can cause bronchospasm. You may want to cover your mouth when you go outside in the winter. Avoid exposure to anyone who is sick with a cough or sore throat. Call your doctor if you observe: Fever of 101 or Higher, Inability to urinate, Inability to have a bowel movement, Shortness of breath, Fainting spells, Swelling in the ankles, Chest pain, - - Call your PCP if severe diarrhea, painful sores in the mouth, painful swallowing, rash or itching. Home Medications: Medications to take at Discharge Albuterol Inhaler [Ventolin Hfa] 1 - 2 puff INHALATION Q6H PRN PRN 05/14/17 Aspirin 81 mg PO DAILY 05/14/17 Clopidogrel Bisulfate [Clopidogrel] 75 mg PO DAILY 05/14/17 Insulin Aspart [Novolog Flexpen] See Protocol SC TIDCM 05/14/17 Insulin Degludec [Tresiba Flextouch U-100] 60 unit SC BID 05/14/17 Lisinopril [Zestril] 40 mg PO DAILY 05/14/17 Nitroglycerin [Nitrostat] 0.4 mg SUBLINGUAL Q5M PRN 05/14/17 Oxycodone [Oxyir] 5 mg PO BID PRN PRN 05/14/17 Simvastatin 80 mg PO QHS 05/14/17 Acetaminophen [Tylenol Tablet] 650 mg PO Q4H PRN PRN tablet 05/18/17 Albuterol Aerosols [Ventolin Aerosols] 2.5 mg INHALATION UD #120 vial.neb. 05/18/17 Allopurinol [Zyloprim] 150 mg PO DAILYCM #16 tablet 05/18/17 Amoxicillin/Potassium Clav [Augmentin 500-125 Tablet] 1 ea PO BID #14 tab 05/18/17 Cilostazol 50 mg PO BID #15 tab 05/18/17 Ergocalciferol [Vitamin D] 50,000 unit PO Q7D #12 cap 05/18/17 Ferrous Sulfate 325 mg PO BIDCM #60 tab 05/18/17 Finasteride [Proscar] 5 mg PO DAILY #30 tab 05/18/17 HydrALAZINE [Apresoline] 25 mg PO TID #90 tab 05/18/17 Isosorbide Mononitrate [Imdur] 30 mg PO DAILY #30 tab 05/18/17 Metoprolol(XL)Succ [Toprol Xl (Beta Vanesa)] 50 mg PO DAILY #30 tab 05/18/17 Nebulizer [Aeroneb Go Nebulizer] 1 ea MC 4X/DAY #1 ea 05/18/17 Oxygen, Home [Home Oxygen] 2 - 3 lpm NASAL UD #1 unit 05/18/17 Pantoprazole Sodium [Protonix] 40 mg PO DAILY #30 tab 05/18/17 Prednisone 10 mg PO UD #30 tab 05/18/17 Sodium Bicarbonate 650 mg PO TID #90 tab 05/18/17 Tamsulosin HCl [Flomax] 0.4 mg PO DAILY@1730 #30 cap 05/18/17 Following Prescrptions Were Given to Patient: Albuterol Aerosols [Ventolin Aerosols] 2.5 mg INHALATION UD #120 vial.neb. Ergocalciferol [Vitamin D] 50,000 unit PO Q7D #12 cap Finasteride [Proscar] 5 mg PO DAILY #30 tab Isosorbide Mononitrate [Imdur] 30 mg PO DAILY #30 tab Metoprolol(XL)Succ [Toprol Xl (Beta Vanesa)] 50 mg PO DAILY #30 tab Oxygen, Home [Home Oxygen] 2 - 3 lpm NASAL UD #1 unit Pantoprazole Sodium [Protonix] 40 mg PO DAILY #30 tab Prednisone 10 mg PO UD #30 tab Tamsulosin HCl [Flomax] 0.4 mg PO DAILY@1730 #30 cap Amoxicillin/Potassium Clav [Augmentin 500-125 Tablet] 1 ea PO BID #14 tab Cilostazol 50 mg PO BID #15 tab Ferrous Sulfate 325 mg PO BIDCM #60 tab HydrALAZINE [Apresoline] 25 mg PO TID #90 tab Sodium Bicarbonate 650 mg PO TID #90 tab Nebulizer [Aeroneb Go Nebulizer] 1 ea MC 4X/DAY #1 ea Primary Care Physician: Caesar Chavez DO [Primary Care Provider] - Please follow up with your Primary Care Physician in: 3-5 days Please Follow Up With: Jensen Leahy MD When: 2-3 weeks Please Follow Up With: Daysi Magana DO When: 2 weeks Please Follow Up With: Nahun Barlow DO When: 2 weeks with Loan to arrange PFT's and a new sleep study Patient Instructions: What Are Snoring and Sleep Apnea?, Continuous Positive Air Pressure (CPAP) Disposition: Home Minutes spent on discharge:: 40 Patient Condition:: Stable Meaningful Use Info Meaningful Use Diagnoses (Choose all that apply): AMI - AMI Aspirin given w/in 24hrs of arrival?: Yes ASA at discharge?: Yes Statins at discharge?: Yes Alex/ARB at discharge?: Yes Beta Vanesa at discharge?: Yes Done w/ Acute NE measure.: Yes Code Visit Inpatient E&M: 38301 Disch Hosp
--- NOTE | 2017-05-18 17:32 | DS.PCM_ITS ---
Discharge Date and Diagnosis Date of Admission: 05/14/17 Date of Discharge: 05/18/17 - Primary Discharge Diagnosis Active and Suspected Problems Severe sepsis (Acute) Acute respiratory failure with hypoxemia (Acute) Influenza B (Acute) Streptococcal pneumonia (Acute) Acute exacerbation of chronic obstructive pulmonary disease (COPD) (Acute) Acute renal failure superimposed on stage 4 chronic kidney disease (Acute) Paroxysmal atrial fibrillation (Acute) with RVR - converted Heme + stool (Acute) Metabolic acidosis (Acute) Non-STEMI (non-ST elevated myocardial infarction) (Acute) Hyperphosphatemia - Secondary Discharge Diagnosis Chronic Problems Radiculopathy affecting upper extremity (Chronic) - left NSAID long-term use (Chronic) - Meloxicam, Mobic, Motrin and ASA Uncontrolled diabetes mellitus (Chronic) - HGBA1C 9.6 Iron deficiency anemia (Chronic) ferritin is 8 and he has heme + stool Urinary retention due to benign prostatic hyperplasia (Chronic) - started on Flomax and Proscar Increased PTH level (Chronic) - due to CRF stage 4 Low vitamin D level (Chronic) Chronic renal failure, stage 4 (severe) (Chronic) Nocturnal hypoxia (Chronic) Noncompliance with CPAP treatment (Chronic) LADARIUS (obstructive sleep apnea) (Chronic) Gout (Chronic) History of tobacco abuse (Chronic) quit in 2017 Hx of CABG (Chronic) 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 There is NO pneumothorax. Heart is borderline enlarged. Electronically Signed: Ryan Mejia MD at 6:22 EST , Service support , Renal Ultrasound 05/14/17 09:35 IMPRESSION: Normal ultrasound of the kidneys. Electronically Signed: Herbert Carroll MD at 13:09 EST Tel [phone], Service support , Chest X-Ray 05/15/17 05:55 IMPRESSION: There is suboptimal inspiration. There are bibasilar infiltrates greater on the RIGHT. There is a small RIGHT pleural effusion. There is NO pneumothorax. There is borderline enlarged. Electronically Signed: Ryan Mejia MD at 4:30 EST , Service support , Microbiology 05/17/17 06:50 Stool Stool Occult Blood (ИВАН) - Final Occult Blood Positive 05/14/17 08:30 Sputum, Expectorated/Coughed Gram Stain - Final 05/14/17 08:30 Sputum, Expectorated/Coughed Respiratory Culture - Final Streptococcus pneumoniae Mixed Culture 05/14/17 05:50 Blood Culture (Wb) #2 - Anticubital Left Blood Culture - Preliminary No growth in 48 hours. 05/14/17 05:10 Blood Culture (Wb) - Arm Left Blood Culture - Preliminary No growth in 48 hours. 05/14/17 07:50 Mucosa - Nasopharyngeal Respiratory Panel (PCR) - Final Influenzae B 05/14/17 08:30 Urine Catheter - Hoff Legionella Antigen - Final 05/14/17 08:27 Urine Catheter - Hoff Streptococcus pneumoniae Antigen (M - Final 05/14/17 04:58 Mucosa - Nasopharyngeal Influenza Types A,B Direct FA (ИВАН) - Final Laboratory Results - last 24 hr 05/17/17 05/18/17 05/18/17 22:25 06:07 06:07 Hgb 9.0 L Hct 30.0 L Sodium 142 Potassium 4.4 Chloride 110 H Carbon Dioxide 22.0 BUN 77 H Creatinine 2.60 H Estim Creat Clear Calc 33.29 Est GFR (MDRD) Af Amer 32 L Est GFR (MDRD) Non-Af 27 L BUN/Creatinine Ratio 29.6 H Glucose 104 Calcium 7.6 L Phosphorus 3.9 Albumin 2.5 L POC Glucose 245 H 05/18/17 05/18/17 05/18/17 06:49 11:36 16:50 Hgb Hct Sodium Potassium Chloride Carbon Dioxide BUN Creatinine Estim Creat Clear Calc Est GFR (MDRD) Af Amer Est GFR (MDRD) Non-Af BUN/Creatinine Ratio Glucose Calcium Phosphorus Albumin POC Glucose [address] Jensen Leahy - [facility] Dr. Nahun Barlow - Pulmonary/fountain pen nibs inspector Dr. Daysi Magana - Nephrology Operations: None Procedures: 2-D Echocardiogram - EF 65%, stage II diastolic dysfunction Summary of Care Provided: Mr. 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 The cough was productive of clear sputum. He denied N/V/ abdominal pain. Denied hx of PUD. He had never had a colonoscopy or a EGD. He was taking Meloxicam QOD and Mobic everyday and ASA. He denied weight loss and also denied FH of colon CA. He did c/o chest pain and numbness in the left arm and this resolved with NTG. Vital signs at presentation to the emergency room were temp 100.9?F, pulse rate 151, blood pressure 185/92, respiratory rate 37 and he was 97% saturated on a 5 L nasal cannula. White blood cell count was 12.9 with 84% neutrophils. Hemoglobin was 6.3 with an MCV of 71.6 and platelets were 407,000. An ABG done on 5 L nasal cannula showed pH 7.32, PCO2 30 and PO2 92. The serum bicarb was low at 19 and the anion gap was 13. BUN was 67 with a creatinine of 3.25 and he denied any history of chronic kidney disease. The blood sugar was 80. Lactic acid was elevated at 2.4 and troponin was elevated at 0.39. BNP was 35.2. EKG showed sinus tachycardia with nonspecific ST and T-wave changes. Chest x-ray was reported as bilateral infiltrates. Influenza swab was negative and respiratory panel and blood cultures were ordered. He was given Zosyn and vancomycin in the emergency room and received 2 L of normal saline. He also received 40 mg of pantoprazole IV, 125 mg Solu-medrol and aerosolized bronchodilators. He was admitted to the ICU and Dr. Barlow was consulted. Dr. Leahy was also consulted. The respiratory panel was positive for Influenza B and he was started on Tamiflu. BIPAP was applied and he tolerated this well and did not require intubation. He was started on Solu-medrol 40 mg Q 6H. The sputum culture was + for Strep pneumoniae even though the urine for streptococcal antigen was negative. He was started on Rocephin. He was seen by Dr. Leahy who recommended transfusing the patient and maintaining a hemoglobin of at least 8. He also recommended continuing baby aspirin but holding Plavix. He had a brief episode of AF that resolved without tx other than ELYTE replacement. Dr. Leahy recommended a Stress test when the respiratory status was optimized to evaluate for any areas of ischemia, particularly of the anterior and lateral territories which is where the previous stents were done. Creat failed to significantly improve with hydration and Dr. Daysi Magana was consulted. She felt he likely had stage 3 progressive diabetic nephropathy with possible acute component and recommended holding the ACEi and NSAID's. The creat did not significantly change until the day of DC and it was 2.6 on that date.....this may be dilutional. Prior to DC he had an overnight trending pulse ox and he dropped to 72% without BIPAP and he was prescribed Nocturnal oxygen at DC. He will not wear the BIPAP because it makes too much noise and he can not sleep. I did recommend to him that he follow up in the office with Dr. Barlow post discharge to order a sleep study and PFT's. He was discharged on 05/18 and given RX's for Augmentin, Prednisone taper, a nebulizer and Albuterol soln, Metoprolol, Oxygen , Tamulosin and Proscar, Vitamin D and a decreased dose of Pletal due to the CRF. He will follow up with Dr. Chavez in the office in 3-5 days, with Dr. Leahy in 2-3 weeks, Dr[address] Magana in [address] Barlow in 2 weeks. He will discuss a referral for a stress test with Dr. Chavez. This note was generated with [employer] dictation software. It may contain incorrect words, spelling, and punctuation that were not noted in checking the note before signing. Discharge Activity: - - Avoid exposure to any strong smells such as bleach, cleaning products, strong colognes or perfumes, paint fumes and smoke of any kind. Avoid sudden exposure to cold air because this can cause bronchospasm. You may want to cover your mouth when you go outside in the winter. Avoid exposure to anyone who is sick with a cough or sore throat. Call your doctor if you observe: Fever of 101 or Higher, Inability to urinate, Inability to have a bowel movement, Shortness of breath, Fainting spells, Swelling in the ankles, Chest pain, - - Call your PCP if severe diarrhea, painful sores in the mouth, painful swallowing, rash or itching. Home Medications: Medications to take at Discharge Albuterol Inhaler [Ventolin Hfa] 1 - 2 puff INHALATION Q6H PRN PRN 05/14/17 Aspirin 81 mg PO DAILY 05/14/17 Clopidogrel Bisulfate [Clopidogrel] 75 mg PO DAILY 05/14/17 Insulin Aspart [Novolog Flexpen] See Protocol SC TIDCM 05/14/17 Insulin Degludec [Tresiba Flextouch U-100] 60 unit SC BID 05/14/17 Lisinopril [Zestril] 40 mg PO DAILY 05/14/17 Nitroglycerin [Nitrostat] 0.4 mg SUBLINGUAL Q5M PRN 05/14/17 Oxycodone [Oxyir] 5 mg PO BID PRN PRN 05/14/17 Simvastatin 80 mg PO QHS 05/14/17 Acetaminophen [Tylenol Tablet] 650 mg PO Q4H PRN PRN tablet 05/18/17 Albuterol Aerosols [Ventolin Aerosols] 2.5 mg INHALATION UD #120 vial.neb. 05/18 Allopurinol [Zyloprim] 150 mg PO DAILYCM #16 tablet 05/18/17 Amoxicillin/Potassium Clav [Augmentin 500-125 Tablet] 1 ea PO BID #14 tab Cilostazol 50 mg PO BID #15 tab 05/18/17 Ergocalciferol [Vitamin D] 50,000 unit PO Q7D #12 cap 05/18/17 Ferrous Sulfate 325 mg PO BIDCM #60 tab 05/18/17 Finasteride [Proscar] 5 mg PO DAILY #30 tab 05/18/17 HydrALAZINE [Apresoline] 25 mg PO TID #90 tab 05/18/17 Isosorbide Mononitrate [Imdur] 30 mg PO DAILY #30 tab 05/18/17 Metoprolol(XL)Succ [Toprol Xl (Beta Vanesa)] 50 mg PO DAILY #30 tab 05/18/17 Nebulizer [Aeroneb Go Nebulizer] 1 ea MC 4X/DAY #1 ea 05/18/17 Oxygen, Home [Home Oxygen] 2 - 3 lpm NASAL UD #1 unit 05/18/17 Pantoprazole Sodium [Protonix] 40 mg PO DAILY #30 tab 05/18/17 Prednisone 10 mg PO UD #30 tab 05/18/17 Sodium Bicarbonate 650 mg PO TID #90 tab 05/18/17 Tamsulosin HCl [Flomax] 0.4 mg PO DAILY@1730 #30 cap 05/18/17 Following Prescrptions Were Given to Patient: Albuterol Aerosols [Ventolin Aerosols] 2.5 mg INHALATION UD #120 vial.neb. Ergocalciferol [Vitamin D] 50,000 unit PO Q7D #12 cap Finasteride [Proscar] 5 mg PO DAILY #30 tab Isosorbide Mononitrate [Imdur] 30 mg PO DAILY #30 tab Metoprolol(XL)Succ [Toprol Xl (Beta Vanesa)] 50 mg PO DAILY #30 tab Oxygen, Home [Home Oxygen] 2 - 3 lpm NASAL UD #1 unit Pantoprazole Sodium [Protonix] 40 mg PO DAILY #30 tab Prednisone 10 mg PO UD #30 tab Tamsulosin HCl [Flomax] 0.4 mg PO DAILY@1730 #30 cap Amoxicillin/Potassium Clav [Augmentin 500-125 Tablet] 1 ea PO BID #14 tab Cilostazol 50 mg PO BID #15 tab Ferrous Sulfate 325 mg PO BIDCM #60 tab HydrALAZINE [Apresoline] 25 mg PO TID #90 tab Sodium Bicarbonate 650 mg PO TID #90 tab Nebulizer [Aeroneb Go Nebulizer] 1 ea MC 4X/DAY #1 ea Primary Care Physician: Caesar Chavez DO [Primary Care Provider] - Please follow up with your Primary Care Physician in: 3-5 days Please Follow Up With: Jensen Leahy MD When: 2-3 weeks Please Follow Up With: Daysi Magana DO When: 2 weeks Please Follow Up With: Nahun Barlow DO When: 2 weeks with Loan to arrange PFT's and a new sleep study Patient Instructions: What Are Snoring and Sleep Apnea?, Continuous Positive Air Pressure (CPAP) Disposition: Home Minutes spent on discharge:: 40 Patient Condition:: Stable Meaningful Use Info Meaningful Use Diagnoses (Choose all that apply): AMI - AMI Aspirin given w/in 24hrs of arrival?: Yes ASA at discharge?: Yes Statins at discharge?: Yes Alex/ARB at discharge?: Yes Beta Vanesa at discharge?: Yes Done w/ Acute AL measure.: Yes Code Visit Inpatient E&M: 36511 Disch Hosp
== END 2017-05-18 18:07 | disposition home or self-care (01) | DRG 871 ==
LOC: ED 06:56 → ICU 07:00 → PCU 05-16 09:33
PROVIDERS: Internal Medicine Critical Care Medicine; Internal Medicine Nephrology; Admitting Provider Internal Medicine; Emergency Provider Emergency Medicine; Family Provider Family Medicine; PCP Family Medicine; Visit Provider Internal Medicine
DX: A41.89 Other specified sepsis (principal); J11.08 Influenza due to unidentified influenza virus with specified pneumonia; J96.01 Acute respiratory failure with hypoxia; I21.A1 Myocardial infarction type 2; J13 Pneumonia due to Streptococcus pneumoniae; E11.22 Type 2 diabetes mellitus with diabetic chronic kidney disease; N18.4 Chronic kidney disease, stage 4 (severe); D62 Acute posthemorrhagic anemia; N17.9 Acute kidney failure, unspecified; J44.1 Chronic obstructive pulmonary disease with (acute) exacerbation; J44.0 Chronic obstructive pulmonary disease with (acute) lower respiratory infection; K92.1 Melena; E87.2 Acidosis; A41.52 Sepsis due to Pseudomonas; J10.1 Influenza due to other identified influenza virus with other respiratory manifestations; R65.20 Severe sepsis without septic shock; Z87.891 Personal history of nicotine dependence; J20.9 Acute bronchitis, unspecified; J42 Unspecified chronic bronchitis; I13.10 Hypertensive heart and chronic kidney disease without heart failure, with stage 1 through stage 4 chronic kidney disease, or unspecified chronic kidney disease; E11.65 Type 2 diabetes mellitus with hyperglycemia; D72.829 Elevated white blood cell count, unspecified; Z90.2 Acquired absence of lung [part of]; Z79.02 Long term (current) use of antithrombotics/antiplatelets; G47.33 Obstructive sleep apnea (adult) (pediatric); Z95.9 Presence of cardiac and vascular implant and graft, unspecified; D50.0 Iron deficiency anemia secondary to blood loss (chronic); Z79.82 Long term (current) use of aspirin; Z79.1 Long term (current) use of non-steroidal anti-inflammatories (NSAID); Z79.899 Other long term (current) drug therapy; Z79.51 Long term (current) use of inhaled steroids; Z79.4 Long term (current) use of insulin; Z79.891 Long term (current) use of opiate analgesic; Z91.19 Patient's noncompliance with other medical treatment and regimen; I48.91 Unspecified atrial fibrillation; M10.9 Gout, unspecified; E66.01 Morbid (severe) obesity due to excess calories; Z68.33 Body mass index [BMI] 33.0-33.9, adult; I70.209 Unspecified atherosclerosis of native arteries of extremities, unspecified extremity; E78.5 Hyperlipidemia, unspecified; M54.12 Radiculopathy, cervical region; E55.9 Vitamin D deficiency, unspecified; E83.39 Other disorders of phosphorus metabolism; I25.10 Atherosclerotic heart disease of native coronary artery without angina pectoris; N40.1 Benign prostatic hyperplasia with lower urinary tract symptoms; R33.8 Other retention of urine; R35.1 Nocturia; Z95.1 Presence of aortocoronary bypass graft
CPT/HCPCS: 36415; 36600; 71045; 76770; 80048; 80053; 80061; 80069; 80076; 81002; 82274; 82306; 82570; 82575; 82728; 82803; 82962; 83036; 83540; 83550; 83605; 83735; 83880; 83970; 84100; 84153; 84156; 84300; 84484; 84550; 85014; 85018; 85025; 85027; 85045; 85610; 85730; 86850; 86900; 86920; 86922; 87040; 87070; 87077; 87186; 87205; 87449; 87633; 87641; 87804; 93005; 93306; 94002; 94003; 94640; 94667; 94668; 94762; 97110; 97162; 97165; 97530; 97802; 99285; J1756; J7030; J7050; P9016; Q9957; A4216; C8929; G0103; J0696

== ENCOUNTER → 2017-06-17 12:17 | Outpatient (CLI) | payer MEDICARE, SELFPAY ==
[2017-06-17 14:52] LABS: Protein, Urine (Random) 90.4 mg/dL (<11.9); Protein:Creat Ratio 988 mg/g CRE (0-200)
[2017-06-17 15:07] LABS: Albumin, Serum 2.5 g/dL (3.2-5.0); BUN 48 mg/dL (7-18); BUN/Creat Ratio 18.6 RATIO (10-20); Calcium,Total 9.6 mg/dL (8.5-10.1); Chloride 109 mmol/L (98-107); Creatinine, Serum 2.58 mg/dL (0.70-1.30); EST Glomerular Filtration Rate 27 mL/min (>60); Est Glom Filt Rate - Afr Amer 33 mL/min (>60); Glucose 112 mg/dL (74-106); Potassium 4.6 mmol/L (3.5-5.1); Sodium Level 143 mmol/L (136-145)
== END ==
PROVIDERS: Family Provider Family Medicine; PCP Family Medicine; Visit Provider Internal Medicine Nephrology
DX: E11.22 Type 2 diabetes mellitus with diabetic chronic kidney disease (principal); N18.3 Chronic kidney disease, stage 3 (moderate)
CPT/HCPCS: 36415; 80069; 82570; 84156

== ENCOUNTER → 2017-06-26 08:23 | Outpatient (CLI) | payer MEDICARE, SELFPAY ==
[2017-06-26 09:18] VITALS: PULSE 107; PULSE 109; PULSE 111; PULSE 112; PULSE 97; PULSE 99; O2SAT 89; O2SAT 90; O2SAT 91; O2SAT 92; O2SAT 93; O2SAT 95; O2SAT 96
--- NOTE | 2017-06-26 13:51 | WT_ITS ---
PSN 6 Minute Walk Test - 6 Minute Walk Test 6 Minute Walk Test: 6 Minute Walk Test PSN:6-Minute Walk Test Start: 06/26/17 09: 18 Freq: Status: Active Protocol: [id number] Document 06/26/17 09:18 [facility] (Rec: 06/26/17 09:24 [facility] [id number]) 6 Minute Walk Test Date Performed 06/26/17 Time Performed 08:30 Height 6 ft 1 in Weight: 232 lb Weight in Pounds 232.[address]: Loan Navarrete Assistive device used: None Pre-test Oxygen Delivery Method Room Air Pulse Ox (%) 96 Pulse Rate (60-100 beats/min) 99 Dyspnea Lily Scale (0-10) 1 1st minute Oxygen Delivery Method Room Air Pulse Ox (%) 92 Pulse Rate (60-100 beats/min) 111 H Dyspnea Lily Scale (0-10) 1 2nd minute Oxygen Delivery Method Room Air Pulse Ox (%) 93 Pulse Rate (60-100 beats/min) 107 H Dyspnea Lily Scale (0-10) 2 Reported Symptoms Increased Work of Breathing 3rd minute Oxygen Delivery Method Room Air Pulse Ox (%) 90 Pulse Rate (60-100 beats/min) 109 H Dyspnea Lily Scale (0-10) 3 Reported Symptoms Increased Work of Breathing 4th minute Oxygen Delivery Method Room Air Pulse Ox (%) 91 Pulse Rate (60-100 beats/min) 112 H Dyspnea Lily Scale (0-10) 3 Reported Symptoms Increased Work of Breathing 5th minute Oxygen Delivery Method Room Air Pulse Ox (%) 89 Pulse Rate (60-100 beats/min) 112 H Dyspnea Lily Scale (0-10) 3 Reported Symptoms Increased Work of Breathing 6th minute Oxygen Delivery Method Room Air Pulse Ox (%) 91 Pulse Rate (60-100 beats/min) 109 H Dyspnea Lily Scale (0-10) 3 Reported Symptoms Increased Work of Breathing Post-test Oxygen Delivery Method Room Air Pulse Ox (%) 95 Pulse Rate (60-100 beats/min) 97 Dyspnea Lily Scale (0-10) 1 Full Laps Walked 12 Partial Lap, Number of Tiles Walked 14 Total Distance Walked (ft) 722 - Interpretation Interpretation: The patient ambulated 722 feet over the course of 6 minutes on room air without assistive devices or breaks. Pretesting oxygen saturation was noted to be 96% on room air. With ambulation, the sharonda oxygen saturation was 89%. There was evidence of impaired walk distance, significant exertional oxygen desaturation along with exertional tachycardia. - Recommendations Recommendations: There is no indication for the use of supplemental oxygen at this time. However , close interval follow-up is recommended given the degree of oxygen desaturation noted during this study.
== END ==
PROVIDERS: Family Provider Family Medicine; PCP Family Medicine; Visit Provider Nurse Practitioner Acute Care
DX: J44.9 Chronic obstructive pulmonary disease, unspecified (principal)
CPT/HCPCS: 94618

== ENCOUNTER → 2017-08-26 20:00 | Outpatient (CLI) | payer MEDICARE, SELFPAY | PROVIDERS: Family Provider Family Medicine; PCP Family Medicine; Visit Provider Internal Medicine Critical Care Medicine | DX: G47.33 Obstructive sleep apnea (adult) (pediatric) (principal) | CPT/HCPCS: 95811 ==

== ENCOUNTER → 2017-09-09 06:18 | Outpatient (CLI) | payer MEDICARE, SELFPAY ==
--- NOTE | 2017-09-10 05:56 | PFTCOMP_ITS ---
COMPLETE PULMONARY FUNCTION TEST INTERPRETATION Brief HPI: Patient is a 61 year old male, currently under the care of Loan Navarrete, who presents to [facility] for complete pulmonary function tests secondary to diagnosis of COPD. Respiratory therapist reports good effort and reproducible results. Interpretation: Forced expiration spirometry shows a severe large airways obstructive ventilatory defect with an FEV1 of 37% predicted. There is no significant bronchodilator response by ATS criteria. Spirograms are of good quality and plateau slowly, indicating slowly emptying areas of the lungs. The respiratory flow volume loop shows decreased expiratory flow rates at all lung volumes consistent with airway obstruction. Lung volumes by body plethysmography show a decreased total lung capacity at 5.29 L, 72% predicted. All other lung volumes are within normal limits. Diffusion capacity by carbon monoxide is decreased at 9.6% predicted. The airway resistance is elevated. No previous pulmonary function tests were available for review. Impression: Irreversible severe mixed ventilatory defect with a symmetric reduction diffusing capacity.
== END ==
PROVIDERS: Family Provider Family Medicine; PCP Family Medicine; Visit Provider Nurse Practitioner Acute Care
DX: J44.9 Chronic obstructive pulmonary disease, unspecified (principal); F17.201 Nicotine dependence, unspecified, in remission
CPT/HCPCS: 94060; 94726; 94729

== ENCOUNTER → 2017-09-15 10:06 | Outpatient (CLI) | payer MEDICARE, SELFPAY ==
[2017-09-15 11:13] LABS: Protein, Urine (Random) 36.2 mg/dL (<11.9); Protein:Creat Ratio 260 mg/g CRE (0-200)
[2017-09-15 11:41] LABS: Albumin, Serum 3.5 g/dL (3.2-5.0); BUN 102 mg/dL (7-18); BUN/Creat Ratio 25.5 RATIO (10-20); Calcium,Total 9.2 mg/dL (8.5-10.1); Chloride 118 mmol/L (98-107); EST Glomerular Filtration Rate 16 mL/min (>60); Est Glom Filt Rate - Afr Amer 20 mL/min (>60); Glucose 167 mg/dL (74-106); Phosphorus 6.1 mg/dL (2.5-4.9); Potassium 6.8 mmol/L (3.5-5.1); Sodium Level 142 mmol/L (136-145)
== END ==
PROVIDERS: Family Provider Family Medicine; PCP Family Medicine; Visit Provider Internal Medicine Nephrology
DX: E11.22 Type 2 diabetes mellitus with diabetic chronic kidney disease (principal); N18.3 Chronic kidney disease, stage 3 (moderate)
CPT/HCPCS: 36415; 80069; 82570; 84156

== ENCOUNTER 2017-09-15 12:48 | Inpatient (IN) | payer MEDICARE, SELFPAY ==
[2017-09-15] VITALS (10 sets, daily range): BP systolic 91–154; BP diastolic 56–98; PULSE 56–105; RESP 16–20; TEMP 36.4–36.9; O2SAT 96–98; BMI 31.6; BMI 31.0
--- NOTE | 2017-09-15 13:03 | EKG12_ITS ---
Test Reason : DYSRHYTHMIA Blood Pressure : / mmHG Vent. Rate : 096 BPM Atrial Rate : 096 BPM P-R Int : 196 ms QRS Dur : 078 ms QT Int : 304 ms P-R-T Axes : 034 087 049 degrees QTc Int : 384 ms Normal sinus rhythm Low voltage QRS Borderline ECG Confirmed by HARSH ASIF, SARA ([id number]), field map editor KEVIN MORRELL ([id number]) on 09/18/2017 2:52:01 PM Referred By: CONNER Confirmed By:SARA HOUSE MD
--- NOTE | 2017-09-15 13:06 | ED.VISSUMM ---
- ER Visit Summary Date of Service: 09/15/17 Chief Complaint: Abnormal labs History of Present Illness: The patient is a 61 M who had labs drawn this morning. He states he received a call to return to the ER due to abnormal labs. He is been complaining of diarrhea for the past 3-4 weeks. He has a history of chronic renal failure. He denies any abdominal pain or fever. On review of labs drawn earlier today his creatinine is 4.0. Most recent for comparison is a creatinine of 2.58 in June. His potassium this morning was 6.8. Physical Examination: Pressure is 91/56, temperature 97.6, heart rate 105, respiratory rate 16, pulse ox 96% on room air. Patient sitting upright in bed in no acute distress. He has no complaints currently. Head neck examination is unremarkable. Heart is mildly tachycardic. Lung sounds are clear. Abdomen is soft, obese, nontender. Active bowel sounds are noted throughout. Test Results: EKG is sinus at 96 with mild T-wave peaking. CBC reveals a hemoglobin of 8.2. Chemistry studies confirm a potassium of 7.0, BUN 103, and 3.99. Emergency Department Course and Treatment: Patient is given IV fluids, Kayexalate, insulin, D50, albuterol. After IV fluids heart rate and blood pressure are both significantly improved. Patient has been discussed with the hospitalist will be admitted to the ICU. Treatment Plan: [] Disposition: Admit Impression: 1. Hyperkalemia 2. Acute on chronic renal failure This note was generated with [employer] dictation software. It may contain incorrect words, spelling, and punctuation that were not noted in review of the chart prior to signing ED Disposition - Plan for ED Patient: Chief Complaint: Abn Labs Referrals: Caesar Chavez DO [Primary Care Provider] -
[2017-09-15] MEDS: 0.9% Normal Saline 1,000 ML 150 ML IV (13:17)
[2017-09-15 13:27] LABS: Absolute Lymphocyte Count 1.71 X10^3/ul (0.83-4.51); Absolute Neutrophil Count 4.6 X10^3/uL (2.0-7.7); Basophil# 0.03 X10^3/uL; Basophil% 0.4 % (0-1); Eosinophil# 0.73 X10^3/uL; Eosinophils% 9.5 % (0-5); Hematocrit 27.1 % (40-54); Hemoglobin 8.2 g/dl (13.0-16.5); Lymphocyte # 1.71 X10^3/ul (4.0); Lymphocyte % 22.3 % (19-41); Mean Corp Hgb Conc 30.3 g/gl (32-36); Mean Corpuscular Hgb 25.4 pg (27.0-32.0); Mean Corpuscular Volume 83.9 fL (80-94); Mean Platelet Vol. 11.6 fl (6.2-12.0); Monocyte# 0.57 X10^3/uL; Monocyte% 7.4 % (0-10); Neutrophil # 4.62 X10^3/uL (2.7-7.7); Neutrophil % 60.3 % (47-70); Platelet Count 264 K/mm3 (150-450); RBC Distribution Width CV 15.9 % (11.6-14.6); RBC Distribution Width SD 49.2 fl (35.1-43.9); Red Blood Count 3.23 M/mm3 (4.6-6.2); White Blood Count 7.7 K/mm3 (4.4-11.0)
[2017-09-15 13:28] LABS: POSITIVE COUNT NO; POSITIVE DIFFERENTIAL NO; POSITIVE MORPHOLOGY NO
--- NOTE | 2017-09-15 13:38 | ED.RN ---
Called family physician for updated list of meds.
[2017-09-15 13:42] LABS: Anion Gap 10 (5-15); BUN 103 mg/dL (7-18); BUN/Creat Ratio 25.8 RATIO (10-20); Calcium,Total 9.3 mg/dL (8.5-10.1); Chloride 118 mmol/L (98-107); Creatinine, Serum 3.99 mg/dL (0.70-1.30); EST Glomerular Filtration Rate 16 mL/min (>60); Est Glom Filt Rate - Afr Amer 20 mL/min (>60); Estimated Creatinine Clearance 21.69 ml/min; Glucose 93 mg/dL (74-106); Sodium Level 141 mmol/L (136-145)
--- NOTE | 2017-09-15 13:43 | ED.RN ---
received abnormal lab results from lab. dr. oziel hoyt.
--- NOTE | 2017-09-15 13:58 | CM.ED ---
Social Work Note Face to face with the pt to complete initial assessment. Introduced self and role at [facility]. The pt presents with a pleasant affect as evidenced by smiling and willingness to participate in assessment. Pt is accompanied by his , Eva, who he lives with in a one-story home with 5 LOGAN. Reports that he does have difficulty managing these steps. DME consists of a CPAP ([employer]), cane, shower chair and med lock box. Pt reports to be independent with ADL's and does not anticipate any discharge needs. Confirms that his PCP is Dr. Chavez, and he also sees Dr. Barlow and Dr. Magana. Preferred pharmacy is [facility] in [place]. Pt denies have advanced directives completed. HCPOA and Living Will paperwork presented and pt requests to review and discuss with family prior to completion. Pt and made aware that RN KERI is available for discharge planning needs and SW for advanced care planning. Yaquelin Ramsey, DIESEL POWER MECHANIC, [employer]
--- NOTE | 2017-09-15 14:25 | ED.RN ---
2nd call to pharmacy.
[2017-09-15] MEDS: Sodium Polystyrene Sulfonate 15 GM/60 ML UDC 30 GM PO ×2 (14:47→21:40)
[2017-09-15] MEDS: Dextrose 50%-Water 25 GM/50 ML DISP.SYRIN IV (14:47)
[2017-09-15] MEDS: Sodium Bicarbonate 8.4% 50 ML Syringe 50 MEQ IV (14:47)
--- NOTE | 2017-09-15 14:47 | PCM.HP.STD ---
Problem List (1) Hyperkalemia Status: Acute (2) Anemia of chronic renal failure Status: Chronic Qualifiers: Chronic kidney disease stage: stage 4 (severe) Qualified Code(s): N18.4 - Chronic kidney disease, stage 4 (severe); D63.1 - Anemia in chronic kidney disease (3) COPD (chronic obstructive pulmonary disease) Status: Chronic Qualifiers: (4) Acute renal failure superimposed on stage 4 chronic kidney disease Status: Acute (5) Radiculopathy affecting upper extremity Status: Chronic (6) NSAID long-term use Status: Inactive (7) Acute exacerbation of chronic obstructive pulmonary disease (COPD) Status: Resolved (8) Heme + stool Status: Resolved (9) Iron deficiency anemia Status: Chronic (10) Urinary retention due to benign prostatic hyperplasia Status: Resolved (11) Increased PTH level Status: Chronic (12) Metabolic acidosis Status: Acute (13) Low vitamin D level Status: Chronic (14) Paroxysmal atrial fibrillation Status: Chronic (15) Chronic renal failure, stage 4 (severe) Status: Chronic (16) Nocturnal hypoxia Status: Chronic (17) Noncompliance with CPAP treatment Status: Chronic (18) LADARIUS (obstructive sleep apnea) Status: Chronic (19) Acute respiratory failure with hypoxemia Status: Resolved (20) Influenza B Status: Resolved (21) Streptococcal pneumonia Status: Resolved (22) Severe sepsis Status: Resolved (23) Gout Status: Chronic (24) History of tobacco abuse Status: Chronic Comment: quit in April 2017 (25) Hx of CABG Status: Chronic Comment: x3 2003 (26) Coronary artery disease Status: Chronic Comment: has had 3 stents.....the last stent he thinks in 2008 (27) Lower GI bleed Status: Resolved (28) Hypertension Status: Chronic (29) Diabetes mellitus type 2 in obese Status: Chronic (30) Non-STEMI (non-ST elevated myocardial infarction) Status: Chronic (31) H/O pneumonectomy Status: Chronic Comment: Right due to benign tumor (32) 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 (33) Peripheral vascular disease Status: Chronic History of Present Illness Date of Admission: 09/15/17 Chief Complaint: sent ot ER by chief revenue officer for hyperkalemia on OP lab The patient is a 61 year old M with a past medical history of hypertension, diabetes mellitus type 2, former smoking history, coronary artery disease, history of CABG, history of coronary stents, chronic renal failure stage IV, BPH, 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 Vital signs at arrival to the emergency room were temp 97.6, heart rate 56, blood pressure 107/69, respiratory rate 17 and he was 96% saturated on nasal cannula. Significant lab included a hemoglobin of 8.2, potassium of 7.0 and a serum bicarb of 13. BUN was increased at 103 and the creatinine was 3.99. His last creatinine on May 182017 was 2.6. EKG showed peaked T waves. He was given 30 g of Kayexalate, 5 units of subcu insulin, 1 amp of serum bicarb and an amp of D50 W in the ER. He denied palpitations, CP, SOB. He admits to having 3-4 BM's daily for about a month. Denies N/V/Fever/chills/dysuria/cough. He had no ectopy on telemetry while I was interviewing him in the ER. He is being admitted to a monitored bed on PCU. Dr. Daysi Magana has been consulted. Past Medical History Past Medical History (Chronic Problems): Chronic Problems (Last Reviewed 08/12/17 @ 10:27 by Yaquelin Simpson) Anemia of chronic renal failure (Chronic) H/O pneumonectomy (Chronic) Right due to benign tumor Peripheral vascular disease (Chronic) COPD (chronic obstructive pulmonary disease) (Chronic) Radiculopathy affecting upper extremity (Chronic) Iron deficiency anemia (Chronic) Increased PTH level (Chronic) Low vitamin D level (Chronic) Paroxysmal atrial fibrillation (Chronic) Chronic renal failure, stage 4 (severe) (Chronic) Nocturnal hypoxia (Chronic) Noncompliance with CPAP treatment (Chronic) LADARIUS (obstructive sleep apnea) (Chronic) Gout (Chronic) History of tobacco abuse (Chronic) quit in April 2017 Hx of CABG (Chronic) x3 2003 Coronary artery disease (Chronic) has had 3 stents.....the last stent he thinks in 2008 Hypertension (Chronic) Diabetes mellitus type 2 in obese (Chronic) Non-STEMI (non-ST elevated myocardial infarction) (Chronic) Medical History: Medical History (Last Reviewed 08/12/17 @ 10:27 by Yaquelin Simpson) Acute renal failure superimposed on stage 4 chronic kidney disease (Acute) N17.9, N18.4 Radiculopathy affecting upper extremity (Chronic) M54.10 NSAID long-term use (Chronic) Z79.1 Uncontrolled diabetes mellitus (Chronic) E11.65 Acute exacerbation of chronic obstructive pulmonary disease (COPD) (Acute) J44.1 Heme + stool (Acute) R19.5 Iron deficiency anemia (Chronic) D50.9 Urinary retention due to benign prostatic hyperplasia (Chronic) N40.1, R33.8 Increased PTH level (Chronic) E34.9 Metabolic acidosis (Acute) E87.2 Low vitamin D level (Chronic) E55.9 Paroxysmal atrial fibrillation (Acute) I48.0 Chronic renal failure, stage 4 (severe) (Chronic) N18.4 Nocturnal hypoxia (Chronic) G47.34 Noncompliance with CPAP treatment (Chronic) Z91.14 LADARIUS (obstructive sleep apnea) (Chronic) G47.33 Acute respiratory failure with hypoxemia (Acute) J96.01 Influenza B (Acute) J10.1 Streptococcal pneumonia (Acute) J15.4 Severe sepsis (Acute) A41.9, R65.20 Gout (Chronic) M10.9 History of tobacco abuse (Chronic) Z87.891 Coronary artery disease (Chronic) I25.10 Lower GI bleed (Ruled-out) K92.2 Hypertension (Chronic) I10 Acute kidney injury (Acute) N17.9 Diabetes mellitus type 2 in obese (Chronic) E11.69, E66.9 Non-STEMI (non-ST elevated myocardial infarction) (Acute) I21.4 Allergies No Known Allergies Allergy (Verified 08/12/17 10:31) Home Medications: Ambulatory Orders Medication Instructions Recorded Albuterol Inhaler [Ventolin Hfa] 1 - 2 puff INHALATION Q6H PRN PRN 05/14/17 Aspirin 81 mg PO DAILY 05/14/17 Clopidogrel Bisulfate [Clopidogrel] 75 mg PO DAILY 05/14/17 Insulin Aspart [Novolog Flexpen] See Protocol SC TIDCM 05/14/17 Insulin Degludec [Tresiba 60 unit SC BID 05/14/17 Flextouch U-100] Lisinopril [Zestril] 40 mg PO DAILY 05/14/17 Nitroglycerin [Nitrostat] 0.4 mg SUBLINGUAL Q5M PRN 05/14/17 Oxycodone [Oxyir] 5 mg PO BID PRN PRN 05/14/17 Simvastatin 80 mg PO QHS 05/14/17 Acetaminophen [Tylenol Tablet] 650 mg PO Q4H PRN PRN tab 05/18/17 Albuterol Aerosols [Ventolin 2.5 mg INHALATION UD #120 vial.neb. 05/18/17 Aerosols] Allopurinol [Zyloprim] 150 mg PO DAILYCM #16 tab 05/18/17 Cilostazol 50 mg PO BID #15 tab 05/18/17 Ergocalciferol [Vitamin D] 50,000 unit PO Q7D #12 cap 05/18/17 Ferrous Sulfate 325 mg PO BIDCM #60 tab 05/18/17 Finasteride [Proscar] 5 mg PO DAILY #30 tab 05/18/17 Isosorbide Mononitrate [Imdur] 30 mg PO DAILY #30 tab 05/18/17 Metoprolol(XL)Succ [Toprol Xl 50 mg PO DAILY #30 tab 05/18/17 (Beta Vanesa)] Nebulizer [Aeroneb Go Nebulizer] 1 ea MC 4X/DAY #1 ea 05/18/17 Oxygen, Home [Home Oxygen] 2 - 3 lpm NASAL UD #1 unit 05/18/17 Pantoprazole Sodium [Protonix] 40 mg PO DAILY #30 tab 05/18/17 Sodium Bicarbonate 650 mg PO TID #90 tab 05/18/17 Tamsulosin HCl [Flomax] 0.4 mg PO DAILY@1730 #30 cap 05/18/17 hydrALAZINE [Apresoline] 25 mg PO TID #90 tab 05/18/17 Surgical History: Surgical History (Last Reviewed 08/12/17 @ 10:27 by Yaquelin Simpson) Hx of CABG (Chronic) Z95.1 x3 2004 S/P removal of lung Z90.2 3/4 of right lung was removed by Dr. Todd in [facility] 11/2009 Surgical History: angioplasty - stent x2 2003, - - rt lung thoracotomy, lobectomy 2009 for benign tumor Psychiatric History: No pertinent psych hx Lives: Spouse/ Significant Other Smoking Status: Former smoker Tobacco Use: Non-smoker Alcohol: Rare Drugs: None - *Family History Maternal Family History: Family History (Last Reviewed 08/12/17 @ 10:27 by Yaquelin Simpson) Father Leukemia Mother COPD (chronic obstructive pulmonary disease) History Items: COPD Paternal Family History: Family History (Last Reviewed 08/12/17 @ 10:27 by Yaquelin Simpson) Father Leukemia Mother COPD (chronic obstructive pulmonary disease) History Items: Cancer - leukemia, Hypertension Review of Systems Constitutional: Reports: Fatigue. Denies: Chills, Fever, Weight Change Eyes: Denies: Vision Change HEENT: Denies: Head Aches, Sinus Congestion, Sinus Drainage, Sore Throat Cardiovascular: Denies: Chest Pain, Light Headedness, Palpitations, Syncope Respiratory: Denies: Cough, Shortness of breath at rest, Sputum production Gastrointestinal: Reports: Diarrhea. Denies: Abdominal Pain, Nausea, Vomiting Genitourinary: Denies: Dysuria, Frequency, Hematuria, Incontinence, Retention Musculoskeletal: Denies: Joint Pain, Joint Tenderness Skin: Denies: Rash, Wounds Neurological: Reports: Numbness - numbness of the left side which is chronic. Denies: Focal weakness, Tingling Psychiatric: Denies: Anxiety, Depression, Homicidal Ideations, Suicidal Ideations Endocrine: Denies: Change in Body Habitus Hematologic/ Lymphatic: Denies: Hx of blood clot VTE Information - Inpt Only VTE Present on Admission: No VTE Mechan Device Prophylaxis: None - he has severe PVD VTE Pharm Prophylaxis ordered?: Yes Patient Problems: Active and Suspected Problems (Last Reviewed 08/12/17 @ 10:27 by Yaquelin Simpson) Hyperkalemia (Acute) - Physical Exam General: Alert, Oriented x3, Cooperative, No apparent distress, Well developed, Well nourished HEENT: Atraumatic, PERRLA, EOMI, - - Pale palpebral conjunctiva Oral: Dry Mucosa Neck: Supple, No JVD, No Nodes, Trachea Midline Lungs: Clear to auscultation, Diminished Cardiovascular: Regular rate, Regular Rhythm, Normal S1, Normal S2, No murmurs, No Ectopic Activity, No rub noted, No Gallop Abdomen: Soft, Non Tender, Non-Distended, Obese Extremities: No clubbing, No cyanosis, No edema, No Calf Tenderness, Diminished Peripheral Pulses Skin: No breakdown Musculoskeletal: Arthritic Changes Neurological: Cranial nerves II-XII grossly intact, Neuro grossly intact Psych/Mental Status: Normal Affect, Appropriate Vital Signs Temp Pulse Resp BP Pulse Ox 97.8 F 87 16 136/98 H 98 09/15/17 13:58 09/15/17 13:58 09/15/17 13:58 09/15/17 13:58 09/15/17 13:58 Assessment/Plan All Active Problems (Last Reviewed 08/12/17 @ 10:27 by Yaquelin Simpson) Hyperkalemia (Acute) Acute renal failure superimposed on stage 4 chronic kidney disease (Acute) Metabolic acidosis (Acute) Benign neoplasm of right lung (Resolved) Acute exacerbation of chronic obstructive pulmonary disease (COPD) (Resolved) Acute respiratory failure with hypoxemia (Resolved) Heme + stool (Resolved) Influenza B (Resolved) Lower GI bleed (Resolved) Severe sepsis (Resolved) Streptococcal pneumonia (Resolved) Urinary retention due to benign prostatic hyperplasia (Resolved) Impressions 1. Hyperkalemia 2. Acute renal failure on chronic renal failure stage IV 3. Metabolic acidosis 4. Hypertension 5. Diabetes mellitus type 2 6. COPD 7. Coronary artery disease with history of CABG in 2003 and 3 stents, the last in 2008 8. Hyperlipidemia 9. LADARIUS-noncompliant with CPAP 10. Nocturnal hypoxemia-on oxygen 11. History of gout 12. Former smoker-quit April 2017 13. BPH 14. History of iron deficiency anemia 15. Partial pneumonectomy on the right secondary to benign tumor Admit to PCU D5W 0.45 normal saline at 150 cc/h ?3 L Kayexalate 30 g has been given 4 times daily Accu-Cheks with sliding scale insulin coverage Review medication reconciliation when available CBC, CMP, magnesium and phosphorus in the a.m. Check a HGBA1C Check iron studies Consult Dr. Daysi Magana for acute on chronic renal failure VBG Discontinue lisinopril Recheck BMP at 8 PM tonight Code Visit Inpatient E&M: 69920 Init Hosp L3
[2017-09-15] MEDS: Dext 5%-0.45% NS 1,000 ML 150 ML IV ×2 (15:14→21:40)
[2017-09-15 15:36] LABS: Bedside Glucose 93 mg/dL (70-110)
[2017-09-15 16:25] LABS: Blood Gas Specimen Type VEN; O2 Delivery Device Room Air; Time Given 1620; VBG BASE EXCESS -13 mmol/L (-1.0-3.5); VBG Bicarbonate 15 mmol/L (22-26); VBG Oxygen Content 16 mmol/L (23-33); VBG PO2 46 mmHg (25-40); VBG SO2 75 % (50-70); VBG pCO2 34.4 mmHg (41-51); VBG pH 7.24 (7.32-7.42)
[2017-09-15 16:35] LABS: Ferritin 14 ng/mL (26-388); Iron 177 ug/dL (65-175); Iron Binding Capacity,Total 473 ug/dL (250-450); PERCENT IRON SATURATION 37.4 % (15.0-55.0); Phosphorus 5.6 mg/dL (2.5-4.9)
[2017-09-15 16:44] LABS: Hemoglobin A1c 6.6 % (4.2-6.3)
[2017-09-15 21:21] LABS: Anion Gap 9 (5-15); BUN 95 mg/dL (7-18); BUN/Creat Ratio 25.5 RATIO (10-20); Calcium,Total 8.5 mg/dL (8.5-10.1); Chloride 119 mmol/L (98-107); Creatinine, Serum 3.73 mg/dL (0.70-1.30); EST Glomerular Filtration Rate 18 mL/min (>60); Est Glom Filt Rate - Afr Amer 21 mL/min (>60); Estimated Creatinine Clearance 23.21 ml/min; Glucose 239 mg/dL (74-106); Potassium 6.7 mmol/L (3.5-5.1); Sodium Level 144 mmol/L (136-145)
[2017-09-15] MEDS: oxyCODONE 5 MG Tablet PO (21:34)
[2017-09-15] MEDS: Heparin Injection (Vial) 5,000 UNIT/ML VIAL 5000 UNIT SC (21:34)
[2017-09-15 21:40] LABS: Bedside Glucose 174 mg/dL (70-110)
[2017-09-15] MEDS: Insulin Lispro 100 UNIT/ML INSULN.PEN SC (21:41)
[2017-09-15] MEDS: Sodium Bicarbonate 650 MG Tablet PO (22:11)
[2017-09-16] VITALS (18 sets, daily range): BP systolic 105–169; BP diastolic 50–85; PULSE 87–107; RESP 16–20; TEMP 36.5–37.3; O2SAT 94–97
[2017-09-16] MEDS: Dext 5%-0.45% NS 1,000 ML 150 ML IV (04:20)
[2017-09-16] MEDS: Heparin Injection (Vial) 5,000 UNIT/ML VIAL 5000 UNIT SC (05:31)
[2017-09-16] MEDS: Sodium Bicarbonate 650 MG Tablet PO ×3 (05:31→21:31)
[2017-09-16 05:39] LABS: Hematocrit 24.4 % (40-54); Hemoglobin 7.4 g/dl (13.0-16.5); Mean Corp Hgb Conc 30.3 g/gl (32-36); Mean Corpuscular Hgb 25.4 pg (27.0-32.0); Mean Corpuscular Volume 83.8 fL (80-94); Mean Platelet Vol. 11.1 fl (6.2-12.0); Platelet Count 229 K/mm3 (150-450); RBC Distribution Width CV 15.9 % (11.6-14.6); RBC Distribution Width SD 48.5 fl (35.1-43.9); Red Blood Count 2.91 M/mm3 (4.6-6.2)
[2017-09-16 05:43] LABS: Scan Indicated on CBC? Y/N NO
[2017-09-16 05:55] LABS: ALB/GLOB Ratio 0.9 RATIO (0.9-2.4); AST(SGOT) 24 U/L (15-37); Alanine Aminotransfer ALT/SGPT 33 U/L (16-61); Albumin, Serum 3.1 g/dL (3.2-5.0); Alkaline Phosphatase 72 U/L (45-117); Anion Gap 9 (5-15); BUN 88 mg/dL (7-18); BUN/Creat Ratio 24.5 RATIO (10-20); Calcium,Total 8.3 mg/dL (8.5-10.1); Chloride 119 mmol/L (98-107); Cholesterol 88 mg/dL (200); Creatinine, Serum 3.59 mg/dL (0.70-1.30); EST Glomerular Filtration Rate 18 mL/min (>60); Est Glom Filt Rate - Afr Amer 22 mL/min (>60); Estimated Creatinine Clearance 24.11 ml/min; Globulin 3.4 g/dL (2.2-4.2); Glucose 133 mg/dL (74-106); High Density Lipoprotein 31 mg/dL; Magnesium 1.7 mg/dL (1.6-2.6); Phosphorus 5.7 mg/dL (2.5-4.9); Potassium 5.5 mmol/L (3.5-5.1); Protein, Total 6.5 g/dL (6.4-8.2); Sodium Level 145 mmol/L (136-145); Triglycerides 141 mg/dL; Very Low Density Lipoprotein 28 mg/dL (5-40)
--- NOTE | 2017-09-16 05:55 | EKG12_ITS ---
Test Reason : AM EKG Blood Pressure : / mmHG Vent. Rate : 089 BPM Atrial Rate : 089 BPM P-R Int : 204 ms QRS Dur : 082 ms QT Int : 340 ms P-R-T Axes : 055 073 065 degrees QTc Int : 413 ms Normal sinus rhythm Normal ECG When compared with ECG of 15-SEP-2017 13:13, MANUAL COMPARISON REQUIRED, DATA IS UNCONFIRMED Confirmed by HARSH ASIF, SARA ([id number]), editor book KEVIN MORRELL ([id number]) on 09/23/2017 1:14:43 PM Referred By: DR GIRON Confirmed By:SARA HOUSE MD
[2017-09-16 06:41] LABS: Urine Sodium 80 mmol/L (Not Establ.)
[2017-09-16 06:50] LABS: Bedside Glucose 125 mg/dL (70-110)
--- NOTE | 2017-09-16 07:34 | PN_ITS ---
Patient Problems: Active and Suspected Problems (Last Updated 09/16/17 @ 10:30 by Kelechi Adler MD) Hyperkalemia (Acute) Subjective: The patient feels he did not have enough rest last night because he was up all night secondary to having multiple bowel movements. He feels tired. Vitals/I&O's: Vital Signs Temp Pulse Resp BP Pulse Ox 98.1 F 88 16 105/50 L 97 09/16/17 02:47 09/16/17 06:56 09/16/17 02:47 09/16/17 02:47 09/16/17 02:47 Oxygen Delivery Method Room Air Weight: 106.7 kg Body Mass Index (BMI) 31.0 Intake and Output for Last 24 Hours 09/14/17 09/15/17 09/16/17 23:59 23:59 23:59 Intake Total 240 / 240 120 / 120 Balance 240 / 240 120 / 120 General: Alert, Oriented x3, Cooperative HEENT: Atraumatic, PERRLA, EOMI, Normocephalic Neck: Supple, No JVD, Negative Carotid Bruits Lungs: Diminished Cardiovascular: Regular rate, No murmurs Abdomen: Hyperactive Bowel Sounds Extremities: No edema, Capillary Refill Less than 3 Seconds Skin: - - Pale Musculoskeletal: No Tenderness to Palpation of Joints or Extremities Laboratory Results 09/15/17 15:27: POC Glucose 93 09/15/17 16:20: Specimen Type SHERI, VBG pH 7.24 L, VBG pO2 46 H, VBG O2 Sat (Calc ) 75 H, VBG O2 Content 16 L, VBG Base Excess -13 L, POC Mix VBG pCO2 Pt Tmp 34.4 L, O2 Delivery Device Room Air, Blood Gas Notified Whom [place] [facility], Blood Gas Notified Time 1620 09/15/17 20:20: Sodium 144, Potassium 6.7 H*, Chloride 119 H, Carbon Dioxide 16.0 L, Anion Gap 9, BUN 95 H, Creatinine 3.73 H, Estim Creat Clear Calc 23.21, Est GFR (MDRD) Af Amer 21 L, Est GFR (MDRD) Non-Af 18 L, BUN/Creatinine Ratio 25.5 H, Glucose 239 H, Calcium 8.5 09/15/17 21:30: POC Glucose 174 H 09/16/17 05:00: WBC 6.0, RBC 2.91 L, Hgb 7.4 L, Hct 24.4 L, MCV 83.8, MCH 25.4 L , MCHC 30.3 L, RDW 15.9 H, RDW Differential 48.5 H, Plt Count 229, MPV 11.1 09/16/17 05:00: Sodium 145, Potassium 5.5 H, Chloride 119 H, Carbon Dioxide 17.0 L, Anion Gap 9, BUN 88 H, Creatinine 3.59 H, Estim Creat Clear Calc 24.11, Est GFR (MDRD) Af Amer 22 L, Est GFR (MDRD) Non-Af 18 L, BUN/Creatinine Ratio 24.5 H, Glucose 133 H, Calcium 8.3 L, Phosphorus 5.7 H, Magnesium 1.7, Total Bilirubin 0.20, AST 24, ALT 33, Alkaline Phosphatase 72, Total Protein 6.5, Albumin 3.1 L, Globulin 3.4, Albumin/Globulin Ratio 0.9, Triglycerides 141, Cholesterol 88, LDL Cholesterol 29, VLDL Cholesterol 28, HDL Cholesterol 31 L 09/16/17 06:20: Urine Creatinine 82.10 09/16/17 06:20: Ur Random Sodium 80 09/16/17 06:28: Blood Type Pending, Antibody Screen Pending, Crossmatch See Detail 09/16/17 06:47: POC Glucose 125 H Current Medications Heparin Sodium (Porcine) (Heparin Na) 5,000 unit SC Q8 [facility] Last Admin: 09/16/17 05:31 Dose: 5,000 u Dextrose/Sodium Chloride () 1,000 mls @ 150 mls/hr IV .[id number] [facility] Stop: 09/16/17 11:00 Last Admin: 09/16/17 04:20 Dose: 150 mls/hr Insulin Human Lispro (Humalog Kwikpen (Bkc)) 0 unit SC ACHS [facility] PRN Reason: Protocol Last Admin: 09/15/17 21:41 Dose: 1 u Magnesium Hydroxide (Milk Of Magnesia) 30 ml PO DAILY PRN PRN Reason: Constipation Oxycodone HCl (Oxyir) 5 mg PO Q12H PRN PRN PRN Reason: SEVERE PAIN (6-10/10) Last Admin: 09/15/17 21:34 Dose: 5 mg Sodium Bicarbonate (Sodium Bicarbonate) 650 mg PO TID [facility] Last Admin: 09/16/17 05:31 Dose: 650 mg Sodium Chloride () 5 - 30 ml IV UD PRN PRN Reason: SALINE FLUSH Medical Necessity - Tobacco Use Smoking Status: Former smoker Tobacco Use: Non-smoker Assessment/Plan All Active Problems (Last Updated 09/16/17 @ 10:30 by Kelechi Adler MD) Hyperkalemia (Acute) Acute renal failure superimposed on stage 4 chronic kidney disease (Acute) Metabolic acidosis (Acute) Benign neoplasm of right lung (Resolved) Acute exacerbation of chronic obstructive pulmonary disease (COPD) (Resolved) Acute respiratory failure with hypoxemia (Resolved) Influenza B (Resolved) Lower GI bleed (Resolved) Severe sepsis (Resolved) Streptococcal pneumonia (Resolved) Urinary retention due to benign prostatic hyperplasia (Resolved) 1. Hyperkalemia K: 5.5<-7.0 His potassium level has decreased appropriate following treatment yesterday. We will another Kayexalate 30 g. Since he reports diarrhea will not give Miralax at this time. We will decrease IV fluids of Dextrose 0.45% NS from 150ml/hr to 75 ml/hr Continue sodium bicarbonate 650 mg p.o. 3 times daily Nephrology, Dr. Magana is following up. 2 acute renal failure on chronic renal failure stage IV See #1 Continue to hold lisinopril. Gentle hydration. Avoid Nephrotoxic medications 3 Metabolic acidosis Likely due to #2. Managements as above. 4. Anemia of kidney disease Patient to receive 2 units of packed red blood cells ordered overnight. 5. Anemia due to blood loss, chronicity unspecified #4 GI consult for possible scoping Pepcid IV Order 6. History of CAD with stents Aspirin and Plavix on hold due to bleeding. Patient reports that his stent was placed about 10 years ago. If so, he may not even need Plavix. He denies any history of CABG. 7. DVT prophylaxis No chemical thromboprophylaxis secondary to positive occult stools SCD Disposition: Patient will not be discharged today due to anemia with positive occult blood loss. Code Visit Inpatient E&M: 85295 Subs Hosp L2
--- NOTE | 2017-09-16 09:28 | PCM.CONS.R ---
Consultation - Renal 09/16/17 PCP/ Referring MD: Requesting physician: [] Primary care physician: Caesar Chavez Reason for Consultation:: NICK on CKD, hyperkalemia - History of Present Illness History of Present Illness: The patient is a 61 year old M known to me with CKD Stage 4 due to diabetes, nephrosclerosis. Baseline creatinine 2.5 in June 2017, 24h urine CRCL 30cc/min was instructed to go to ER for hyperkalemia K 6.8 renal failure on routine lab work. Pt denied chest pain, swelling, shortness of breath. He has been experiencing diarrhea 4-5x/day past 2-3 weeks. Noticed dark stools thought due to iron therapy weekly. Hgb low at 7.4g with guaiac positive stools. High Potassium treated medically down to 5.5. Creatinine improved from 4.0 on admit to 3.6 with iv fluids. Lisinopril was discontinued. - Allergies Allergies: Allergies No Known Allergies Allergy (Verified 08/12/17 10:31) - Current Medications Current Medications: Current Medications Dextrose/Sodium Chloride () 1,000 mls @ 75 mls/hr IV .[id number] [facility] Insulin Human Lispro (Humalog Kwikpen (Bkc)) 0 unit SC ACHS [facility] PRN Reason: Protocol Last Admin: 09/16/17 07:44 Dose: Not Given Magnesium Hydroxide (Milk Of Magnesia) 30 ml PO DAILY PRN PRN Reason: Constipation Oxycodone HCl (Oxyir) 5 mg PO Q12H PRN PRN PRN Reason: SEVERE PAIN (6-10/10) Last Admin: 09/15/17 21:34 Dose: 5 mg Sodium Bicarbonate (Sodium Bicarbonate) 650 mg PO TID [facility] Last Admin: 09/16/17 05:31 Dose: 650 mg Sodium Chloride () 5 - 30 ml IV UD PRN PRN Reason: SALINE FLUSH - Past Medical History Past Medical History (Chronic Problems): Chronic Problems (Last Updated 09/16/17 @ 10:30 by Kelechi Adler MD) Heme + stool (Chronic) Anemia of chronic renal failure (Chronic) H/O pneumonectomy (Chronic) Right due to benign tumor Peripheral vascular disease (Chronic) COPD (chronic obstructive pulmonary disease) (Chronic) Radiculopathy affecting upper extremity (Chronic) Iron deficiency anemia (Chronic) Increased PTH level (Chronic) Low vitamin D level (Chronic) Paroxysmal atrial fibrillation (Chronic) Chronic renal failure, stage 4 (severe) (Chronic) Nocturnal hypoxia (Chronic) Noncompliance with CPAP treatment (Chronic) LADARIUS (obstructive sleep apnea) (Chronic) Gout (Chronic) History of tobacco abuse (Chronic) quit in April 2017 Hx of CABG (Chronic) x3 2003 Coronary artery disease (Chronic) has had 3 stents.....the last stent he thinks in 2008 Hypertension (Chronic) Diabetes mellitus type 2 in obese (Chronic) Non-STEMI (non-ST elevated myocardial infarction) (Chronic) - Past Surgical History Surgical History: angioplasty - stent x2 2003, - - rt lung thoracotomy, lobectomy 2009 for benign tumor - Social History Smoking Status: Former smoker Alcohol: Rare Drugs: None - Family History Maternal Family History: Family History (Last Reviewed 08/12/17 @ 10:27 by Yaquelin Simpson) Father Leukemia Mother COPD (chronic obstructive pulmonary disease) History Items: COPD Paternal Family History: Family History (Last Reviewed 08/12/17 @ 10:27 by Yaquelin Simpson) Father Leukemia Mother COPD (chronic obstructive pulmonary disease) History Items: Cancer - leukemia, Hypertension Review of Systems Constitutional: Denies: Anorexia, Chills, Fever, Weakness HEENT: Denies: Head Aches Respiratory: Denies: Cough, Shortness of Breath Gastrointestinal: Reports: Diarrhea - 4-5x/day past 2-3 weeks, - - dakr stools on iron weekly. Denies: Abdominal Pain, Nausea, Melena, Vomiting Genitourinary: Reports: - - no change in output. Denies: Dysuria, Retention Musculoskeletal: Denies: Back Pain Skin: Denies: Rash Neurological: Denies: Balance problems Endocrine: Denies: Polydipsia, Polyuria Hematologic/ Lymphatic: Reports: Anemia Patient Problems: Active and Suspected Problems (Last Updated 09/16/17 @ 10:30 by Kelechi Adler MD) Hyperkalemia (Acute) - Physical Exam General: Alert, Oriented x3, Cooperative, No apparent distress Oral: Dry Mucosa Neck: Supple Lungs: Clear to auscultation Cardiovascular: Regular rate Abdomen: Bowel Sounds Present, Soft, Non Tender, Non-Distended Extremities: No edema Skin: No rashes Musculoskeletal: No Muscle Wasting Neurological: Cranial nerves II-XII grossly intact Psych/Mental Status: Normal Affect, Appropriate, Alert and oriented to time, place, person, mood and affect Vital Signs Temp Pulse Resp BP Pulse Ox 98.1 F 88 16 105/50 L 95 09/16/17 02:47 09/16/17 06:56 09/16/17 02:47 09/16/17 02:47 09/16/17 08:57 Oxygen Delivery Method Room Air Weight: 106.7 kg Body Mass Index (BMI) 31.0 Intake and Output for Last 24 Hours 09/14/17 09/15/17 09/16/17 23:59 23:59 23:59 Intake Total 240 / 240 120 / 120 Balance 240 / 240 120 / 120 Laboratory Tests Past 24 Hrs 09/15/17 09/15/17 09/16/17 16:20 20:20 05:00 WBC 6.0 RBC 2.91 L Hgb 7.4 L Hct 24.4 L MCV 83.8 MCH 25.4 L MCHC 30.3 L RDW 15.9 H RDW Differential 48.5 H Plt Count 229 MPV 11.1 Specimen Type SHERI VBG pH 7.24 L VBG pO2 46 H VBG O2 Sat (Calc) 75 H VBG O2 Content 16 L VBG Base Excess -13 L POC Mix VBG pCO2 Pt Tmp 34.4 L O2 Delivery Device Room Air Blood Gas Notified Whom [facility] Blood Gas Notified Time 1620 Sodium 144 Potassium 6.7 H* Chloride 119 H Carbon Dioxide 16.0 L Anion Gap 9 BUN 95 H Creatinine 3.73 H Estim Creat Clear Calc 23.21 Est GFR (MDRD) Af Amer 21 L Est GFR (MDRD) Non-Af 18 L BUN/Creatinine Ratio 25.5 H Glucose 239 H Calcium 8.5 Phosphorus Magnesium Total Bilirubin AST ALT Alkaline Phosphatase Total Protein Albumin Globulin Albumin/Globulin Ratio Triglycerides Cholesterol LDL Cholesterol VLDL Cholesterol HDL Cholesterol Ur Random Sodium Urine Creatinine Blood Type Antibody Screen Crossmatch 09/16/17 09/16/17 09/16/17 05:00 06:20 06:20 WBC RBC Hgb Hct MCV MCH MCHC RDW RDW Differential Plt Count MPV Specimen Type VBG pH VBG pO2 VBG O2 Sat (Calc) VBG O2 Content VBG Base Excess POC Mix VBG pCO2 Pt Tmp O2 Delivery Device Blood Gas Notified Whom Blood Gas Notified Time Sodium 145 Potassium 5.5 H Chloride 119 H Carbon Dioxide 17.0 L Anion Gap 9 BUN 88 H Creatinine 3.59 H Estim Creat Clear Calc 24.11 Est GFR (MDRD) Af Amer 22 L Est GFR (MDRD) Non-Af 18 L BUN/Creatinine Ratio 24.5 H Glucose 133 H Calcium 8.3 L Phosphorus 5.7 H Magnesium 1.7 Total Bilirubin 0.20 AST 24 ALT 33 Alkaline Phosphatase 72 Total Protein 6.5 Albumin 3.1 L Globulin 3.4 Albumin/Globulin Ratio 0.9 Triglycerides 141 Cholesterol 88 LDL Cholesterol 29 VLDL Cholesterol 28 HDL Cholesterol 31 L Ur Random Sodium 80 Urine Creatinine 82.10 Blood Type Antibody Screen Crossmatch 09/16/17 06:28 WBC RBC Hgb Hct MCV MCH MCHC RDW RDW Differential Plt Count MPV Specimen Type VBG pH VBG pO2 VBG O2 Sat (Calc) VBG O2 Content VBG Base Excess POC Mix VBG pCO2 Pt Tmp O2 Delivery Device Blood Gas Notified Whom Blood Gas Notified Time Sodium Potassium Chloride Carbon Dioxide Anion Gap BUN Creatinine Estim Creat Clear Calc Est GFR (MDRD) Af Amer Est GFR (MDRD) Non-Af BUN/Creatinine Ratio Glucose Calcium Phosphorus Magnesium Total Bilirubin AST ALT Alkaline Phosphatase Total Protein Albumin Globulin Albumin/Globulin Ratio Triglycerides Cholesterol LDL Cholesterol VLDL Cholesterol HDL Cholesterol Ur Random Sodium Urine Creatinine Blood Type A POSITIVE Antibody Screen NEGATIVE Crossmatch See Detail POC Glucose 09/16/17 09/15/17 09/15/17 06:47 21:30 15:27 POC Glucose 125 H 174 H 93 Assessment/Plan All Active Problems (Last Updated 09/16/17 @ 10:30 by Kelechi Adler MD) Hyperkalemia (Acute) Acute renal failure superimposed on stage 4 chronic kidney disease (Acute) Metabolic acidosis (Acute) Benign neoplasm of right lung (Resolved) Acute exacerbation of chronic obstructive pulmonary disease (COPD) (Resolved) Acute respiratory failure with hypoxemia (Resolved) Influenza B (Resolved) Lower GI bleed (Resolved) Severe sepsis (Resolved) Streptococcal pneumonia (Resolved) Urinary retention due to benign prostatic hyperplasia (Resolved) 1. NICK on CKD stage 4 likely due to prerenal event, diarrhea past 2-3 weeks. baseline creatinine 2.6 in June 2017 when last seen in my office. Creatinine increased to 4.0 with hyperkalemia. Agree with discontinuation of ACEI. Nonoliguric on iv fluids. Creatinine improved to 3.59 today. Avoid NSAIDs, nephrotoxins 2. Acute hyperkalemia managed medically. 3. Metabolic acidosis due to renal failure, diarrhea. Replace 4. DM2 on insulin 5. HTN stable 6. Anemia check iron studies, prbc as needed. Guaiac pos stools 7. Diarrhea etiology unclear. Afebrile, dark stools at home 8. CAD s/p CABG, NSTEMI 9. Morbid obesity, LADARIUS
[2017-09-16] MEDS: Dext 5%-0.45% NS 1,000 ML 75 ML IV ×2 (09:52→22:18)
[2017-09-16] MEDS: Sodium Polystyrene Sulfonate 15 GM/60 ML UDC 30 GM PO (09:53)
[2017-09-16] MEDS: 0.9% NaCl Peripheral Flush Adult/Peds IV ×2 (09:53→15:47)
[2017-09-16] MEDS: Insulin Lispro 100 UNIT/ML INSULN.PEN SC (11:20)
[2017-09-16 13:41] LABS: Bedside Glucose 173 mg/dL (70-110)
[2017-09-16 16:20] LABS: Bedside Glucose 136 mg/dL (70-110)
[2017-09-16 19:21] LABS: Hematocrit 31.9 % (40-54); Hemoglobin 9.7 g/dl (13.0-16.5)
[2017-09-16 20:00] LABS: Anion Gap 11 (5-15); BUN 73 mg/dL (7-18); BUN/Creat Ratio 25.3 RATIO (10-20); Calcium,Total 8.3 mg/dL (8.5-10.1); Chloride 117 mmol/L (98-107); Creatinine, Serum 2.89 mg/dL (0.70-1.30); EST Glomerular Filtration Rate 24 mL/min (>60); Est Glom Filt Rate - Afr Amer 29 mL/min (>60); Estimated Creatinine Clearance 29.95 ml/min; Glucose 134 mg/dL (74-106); Potassium 5.2 mmol/L (3.5-5.1); Sodium Level 144 mmol/L (136-145)
--- NOTE | 2017-09-16 20:21 | PCM.CONS.GEN ---
Reason for Consult Date of Consultation: 09/16/17 History of Present Illness: The patient is a 61 year old M with multiple complex medical history including coronary artery disease, status post angioplasty and stent placement, COPD, prior tobacco use and partial pneumonectomy, resulting in severe obstructive and restrictive lung disease, chronic renal insufficiency. The patient was initially sent to the emergency department yesterday due to hyperkalemia noted as an outpatient by his nurse discharge planner. The patient was treated acutely for his hyperkalemia and then given Kexaylate. the patient has a known history of iron deficiency anemia. He was started on iron months ago is noted dark stool since that time. He denies abdominal pain. He notes no history of peptic ulcer disease. He denies epigastric pain. He denies nausea or vomiting. He denies hematochezia or hematemesis. His hemoglobin in the ER was noted to be 7.9. His stool was Hemoccult positive. He has not had previous upper or lower endoscopy. Past Medical History Past Medical History (Chronic Problems): Chronic Problems (Last Updated 09/16/17 @ 10:30 by Kelechi Adler MD) Heme + stool (Chronic) Anemia of chronic renal failure (Chronic) H/O pneumonectomy (Chronic) Right due to benign tumor Peripheral vascular disease (Chronic) COPD (chronic obstructive pulmonary disease) (Chronic) Radiculopathy affecting upper extremity (Chronic) Iron deficiency anemia (Chronic) Increased PTH level (Chronic) Low vitamin D level (Chronic) Paroxysmal atrial fibrillation (Chronic) Chronic renal failure, stage 4 (severe) (Chronic) Nocturnal hypoxia (Chronic) Noncompliance with CPAP treatment (Chronic) LADARIUS (obstructive sleep apnea) (Chronic) Gout (Chronic) History of tobacco abuse (Chronic) quit in April 2017 Hx of CABG (Chronic) x3 2003 Coronary artery disease (Chronic) has had 3 stents.....the last stent he thinks in 2008 Hypertension (Chronic) Diabetes mellitus type 2 in obese (Chronic) Non-STEMI (non-ST elevated myocardial infarction) (Chronic) Medical History: Medical History (Last Updated 09/16/17 @ 10:30 by Kelechi Adler MD) Heme + stool (Chronic) R19.5 Acute renal failure superimposed on stage 4 chronic kidney disease (Acute) N17.9, N18.4 Radiculopathy affecting upper extremity (Chronic) M54.10 Iron deficiency anemia (Chronic) D50.9 Increased PTH level (Chronic) E34.9 Metabolic acidosis (Acute) E87.2 Low vitamin D level (Chronic) E55.9 Paroxysmal atrial fibrillation (Chronic) I48.0 Chronic renal failure, stage 4 (severe) (Chronic) N18.4 Nocturnal hypoxia (Chronic) G47.34 Noncompliance with CPAP treatment (Chronic) Z91.14 LADARIUS (obstructive sleep apnea) (Chronic) G47.33 Gout (Chronic) M10.9 History of tobacco abuse (Chronic) Z87.891 quit in April 2017 Coronary artery disease (Chronic) I25.10 has had 3 stents.....the last stent he thinks in 2008 Hypertension (Chronic) I10 Diabetes mellitus type 2 in obese (Chronic) E11.69, E66.9 Non-STEMI (non-ST elevated myocardial infarction) (Chronic) I21.4 Acute exacerbation of chronic obstructive pulmonary disease (COPD) (Resolved) J44.1 Acute respiratory failure with hypoxemia (Resolved) J96.01 Influenza B (Resolved) J10.1 Lower GI bleed (Resolved) K92.2 Severe sepsis (Resolved) A41.9, R65.20 Streptococcal pneumonia (Resolved) J15.4 Urinary retention due to benign prostatic hyperplasia (Resolved) N40.1, R33.8 NSAID long-term use (Inactive) Z79.1 Allergies No Known Allergies Allergy (Verified 08/12/17 10:31) Home Medications: Ambulatory Orders Medication Instructions Recorded Albuterol Inhaler [Ventolin Hfa] 1 - 2 puff INHALATION Q6H PRN PRN 05/14/17 Aspirin 81 mg PO DAILY 05/14/17 Clopidogrel Bisulfate [Clopidogrel] 75 mg PO DAILY 05/14/17 Insulin Aspart [Novolog Flexpen] 45 units SC TIDCM 05/14/17 Insulin Degludec [Tresiba 60 unit SC BID 05/14/17 Flextouch U-100] Lisinopril [Zestril] 40 mg PO DAILY 05/14/17 Nitroglycerin [Nitrostat] 0.4 mg SUBLINGUAL Q5M PRN 05/14/17 Oxycodone [Oxyir] 5 mg PO BID PRN PRN 05/14/17 Simvastatin 80 mg PO QHS 05/14/17 Oxygen, Home [Home Oxygen] 2 - 3 lpm NASAL UD #1 unit 05/18/17 Albuterol Aerosols [Ventolin 2.5 mg INHALATION Q4H PRN PRN 09/15/17 Aerosols] Allopurinol [Zyloprim] 300 mg PO DAILYCM 09/15/17 Cilostazol 100 mg PO BID 09/15/17 Colchicine 0.6 mg PO TID PRN 09/15/17 Ergocalciferol [Vitamin D] 50,000 unit PO Q7D 09/15/17 Ferrous Sulfate 325 mg PO DAILY 09/15/17 Finasteride [Proscar] 5 mg PO DAILY 09/15/17 Isosorbide Mononitrate [Imdur] 30 mg PO DAILY 09/15/17 Metoprolol(XL)Succ [Toprol Xl 50 mg PO DAILY 09/15/17 (Beta Vanesa)] Nebulizer [Aeroneb Go Nebulizer] 1 each MC 4X/DAY 09/15/17 Pantoprazole Sodium [Protonix] 40 mg PO DAILY 09/15/17 Tamsulosin HCl [Flomax] 0.4 mg PO DAILY@1730 09/15/17 hydrALAZINE [Apresoline] 25 mg PO TID 09/15/17 Surgical History: Surgical History (Last Reviewed 08/12/17 @ 10:27 by Yaquelin Simpson) Hx of CABG (Chronic) Z95.1 x3 2004 S/P removal of lung Z90.2 3/4 of right lung was removed by Dr. Todd in [facility] 11/2009 Surgical History: angioplasty - stent x2 2003, - - rt lung thoracotomy, lobectomy 2009 for benign tumor Lives: Spouse/ Significant Other Smoking Status: Former smoker Tobacco Use: Non-smoker Alcohol: Rare Drugs: None - *Family History Maternal Family History: Family History (Last Reviewed 08/12/17 @ 10:27 by Yaquelin Simspon) Father Leukemia Mother COPD (chronic obstructive pulmonary disease) History Items: COPD Paternal Family History: Family History (Last Reviewed 08/12/17 @ 10:27 by Yaquelin Simpson) Father Leukemia Mother COPD (chronic obstructive pulmonary disease) History Items: Cancer - leukemia, Hypertension Review of Systems Constitutional: Denies: Chills, Fever, Weight Change HEENT: Denies: Head Aches, Sinus Congestion, Sinus Drainage Cardiovascular: Denies: Chest Pain, Palpitations Respiratory: Denies: Cough, Shortness of breath at rest, Sputum production Gastrointestinal: Reports: Diarrhea. Denies: Abdominal Pain, Nausea, Vomiting Genitourinary: Denies: Dysuria Musculoskeletal: Denies: Joint Pain, Joint Tenderness Skin: Denies: Rash, Wounds Neurological: Reports: - - notes left-sided tingling secondary to complications from an epidural anesthetic procedure. Denies: Focal weakness, Numbness, Tingling Psychiatric: Denies: Anxiety, Depression, Homicidal Ideations, Suicidal Ideations Hematologic/ Lymphatic: Denies: Easy Bruising, Easy Bleeding Patient Problems: Active and Suspected Problems (Last Updated 09/16/17 @ 10:30 by Kelechi Adler MD) Hyperkalemia (Acute) - Physical Exam General: Alert, Oriented x3, Cooperative Lungs: Diminished Cardiovascular: Regular rate, Regular Rhythm Abdomen: Bowel Sounds Present, Soft, Non Tender Vital Signs Temp Pulse Resp BP Pulse Ox 98.8 F 104 H 20 H 139/85 H 97 09/16/17 18:25 09/16/17 18:42 09/16/17 18:25 09/16/17 18:25 09/16/17 18:25 Oxygen Delivery Method Room Air Weight: 106.7 kg Body Mass Index (BMI) 31.0 Intake and Output for Last 24 Hours 09/14/17 09/15/17 09/16/17 23:59 23:59 23:59 Intake Total 240 / 240 4673 / 4673 Output Total 1200 / 1200 Balance 240 / 240 3473 / 3473 Laboratory Tests Past 24 Hrs 09/15/17 09/16/17 09/16/17 20:20 05:00 05:00 WBC 6.0 RBC 2.91 L Hgb 7.4 L Hct 24.4 L MCV 83.8 MCH 25.4 L MCHC 30.3 L RDW 15.9 H RDW Differential 48.5 H Plt Count 229 MPV 11.1 Sodium 144 145 Potassium 6.7 H* 5.5 H Chloride 119 H 119 H Carbon Dioxide 16.0 L 17.0 L Anion Gap 9 9 BUN 95 H 88 H Creatinine 3.73 H 3.59 H Estim Creat Clear Calc 23.21 24.11 Est GFR (MDRD) Af Amer 21 L 22 L Est GFR (MDRD) Non-Af 18 L 18 L BUN/Creatinine Ratio 25.5 H 24.5 H Glucose 239 H 133 H Calcium 8.5 8.3 L Phosphorus 5.7 H Magnesium 1.7 Total Bilirubin 0.20 AST 24 ALT 33 Alkaline Phosphatase 72 Total Protein 6.5 Albumin 3.1 L Globulin 3.4 Albumin/Globulin Ratio 0.9 Triglycerides 141 Cholesterol 88 LDL Cholesterol 29 VLDL Cholesterol 28 HDL Cholesterol 31 L Ur Random Sodium Urine Creatinine Blood Type Antibody Screen Crossmatch 09/16/17 09/16/17 09/16/17 06:20 06:20 06:28 WBC RBC Hgb Hct MCV MCH MCHC RDW RDW Differential Plt Count MPV Sodium Potassium Chloride Carbon Dioxide Anion Gap BUN Creatinine Estim Creat Clear Calc Est GFR (MDRD) Af Amer Est GFR (MDRD) Non-Af BUN/Creatinine Ratio Glucose Calcium Phosphorus Magnesium Total Bilirubin AST ALT Alkaline Phosphatase Total Protein Albumin Globulin Albumin/Globulin Ratio Triglycerides Cholesterol LDL Cholesterol VLDL Cholesterol HDL Cholesterol Ur Random Sodium 80 Urine Creatinine 82.10 Blood Type A POSITIVE Antibody Screen NEGATIVE Crossmatch See Detail 09/16/17 09/16/17 18:57 18:57 WBC RBC Hgb 9.7 L Hct 31.9 L MCV MCH MCHC RDW RDW Differential Plt Count MPV Sodium 144 Potassium 5.2 H Chloride 117 H Carbon Dioxide 16.0 L Anion Gap 11 BUN 73 H Creatinine 2.89 H Estim Creat Clear Calc 29.95 Est GFR (MDRD) Af Amer 29 L Est GFR (MDRD) Non-Af 24 L BUN/Creatinine Ratio 25.3 H Glucose 134 H Calcium 8.3 L Phosphorus Magnesium Total Bilirubin AST ALT Alkaline Phosphatase Total Protein Albumin Globulin Albumin/Globulin Ratio Triglycerides Cholesterol LDL Cholesterol VLDL Cholesterol HDL Cholesterol Ur Random Sodium Urine Creatinine Blood Type Antibody Screen Crossmatch POC Glucose 09/16/17 09/16/17 09/16/17 16:15 11:10 06:47 POC Glucose 136 H 173 H 125 H 09/15/17 21:30 POC Glucose 174 H Assessment/Plan All Active Problems (Last Updated 09/16/17 @ 10:30 by Kelechi Adler MD) Hyperkalemia (Acute) Acute renal failure superimposed on stage 4 chronic kidney disease (Acute) Metabolic acidosis (Acute) Benign neoplasm of right lung (Resolved) Acute exacerbation of chronic obstructive pulmonary disease (COPD) (Resolved) Acute respiratory failure with hypoxemia (Resolved) Influenza B (Resolved) Lower GI bleed (Resolved) Severe sepsis (Resolved) Streptococcal pneumonia (Resolved) Urinary retention due to benign prostatic hyperplasia (Resolved) chronic anemia-heme positive stools I plan to perform upper and lower endoscopy. Given the patient's complex medical history and cardiac and respiratory issues, I would plan for bowel prep tomorrow and endoscopy with anesthesia providing monitored anesthetic care on morning. Patient was seen, the risks, benefits, complications, and possible alternatives and consents to the above procedure. He is currently received 2 units packed red cell transfusion. We'll follow repeat hemoglobin.
[2017-09-16] MEDS: Cilostazol 50 MG Tablet PO (21:32)
[2017-09-16] MEDS: Atorvastatin Calcium 80 MG Tablet PO (21:33)
[2017-09-16] MEDS: ALPRAZolam 0.25 MG Tablet PO (21:36)
[2017-09-16 21:40] LABS: Bedside Glucose 115 mg/dL (70-110)
[2017-09-17] VITALS (13 sets, daily range): BP systolic 129–171; BP diastolic 71–93; PULSE 84–112; RESP 18–20; TEMP 36.9–37.1; O2SAT 94–96
[2017-09-17] MEDS: Sodium Bicarbonate 650 MG Tablet PO ×3 (05:07→21:48)
[2017-09-17 05:56] LABS: Hematocrit 30.2 % (40-54); Hemoglobin 9.4 g/dl (13.0-16.5); Mean Corp Hgb Conc 31.1 g/gl (32-36); Mean Corpuscular Hgb 26.6 pg (27.0-32.0); Mean Corpuscular Volume 85.3 fL (80-94); Mean Platelet Vol. 11.7 fl (6.2-12.0); Platelet Count 206 K/mm3 (150-450); RBC Distribution Width CV 14.9 % (11.6-14.6); RBC Distribution Width SD 44.8 fl (35.1-43.9); Red Blood Count 3.54 M/mm3 (4.6-6.2); White Blood Count 6.9 K/mm3 (4.4-11.0)
[2017-09-17 05:58] LABS: Anion Gap 9 (5-15); BUN 65 mg/dL (7-18); BUN/Creat Ratio 23.7 RATIO (10-20); Calcium,Total 8.5 mg/dL (8.5-10.1); Chloride 118 mmol/L (98-107); Creatinine, Serum 2.74 mg/dL (0.70-1.30); EST Glomerular Filtration Rate 25 mL/min (>60); Est Glom Filt Rate - Afr Amer 30 mL/min (>60); Estimated Creatinine Clearance 31.59 ml/min; Glucose 119 mg/dL (74-106); Potassium 4.9 mmol/L (3.5-5.1); Sodium Level 147 mmol/L (136-145)
[2017-09-17 06:15] LABS: Scan Indicated on CBC? Y/N NO
[2017-09-17 07:06] LABS: Bedside Glucose 127 mg/dL (70-110)
--- NOTE | 2017-09-17 08:10 | PCM.PN.SRG ---
Patient Problems: Active and Suspected Problems (Last Updated 09/16/17 @ 10:30 by Kelechi Adler MD) Hyperkalemia (Acute) Subjective: no multiple bowel movements since stopping Kayexalate, no abdominal pain or noted bleeding - Physical Exam General: Alert, Oriented x3, Cooperative Lungs: Clear to auscultation, Normal air movement Cardiovascular: Irregular Rate Abdomen: Bowel Sounds Present, Soft, Non Tender Vital Signs Temp Pulse Resp BP Pulse Ox 98.4 F 112 H 18 131/71 H 95 09/17/17 03:04 09/17/17 06:59 09/17/17 03:04 09/17/17 03:04 09/17/17 06:41 Oxygen Delivery Method Room Air Weight: 106.7 kg Body Mass Index (BMI) 31.0 Intake and Output for Last 24 Hours 09/15/17 09/16/17 09/17/17 23:59 23:59 23:59 Intake Total 240 / 240 5336 / 5336 508 / 508 Output Total 1200 / 1200 700 / 700 Balance 240 / 240 4136 / 4136 -192 / -192 Laboratory Tests Past 24 Hrs 09/16/17 09/16/17 09/16/17 06:28 18:57 18:57 WBC RBC Hgb 9.7 L Hct 31.9 L MCV MCH MCHC RDW RDW Differential Plt Count MPV Sodium 144 Potassium 5.2 H Chloride 117 H Carbon Dioxide 16.0 L Anion Gap 11 BUN 73 H Creatinine 2.89 H Estim Creat Clear Calc 29.95 Est GFR (MDRD) Af Amer 29 L Est GFR (MDRD) Non-Af 24 L BUN/Creatinine Ratio 25.3 H Glucose 134 H Calcium 8.3 L Blood Type A POSITIVE Antibody Screen NEGATIVE Crossmatch See Detail 09/17/17 09/17/17 05:00 05:00 WBC 6.9 RBC 3.54 L Hgb 9.4 L Hct 30.2 L MCV 85.3 MCH 26.6 L MCHC 31.1 L RDW 14.9 H RDW Differential 44.8 H Plt Count 206 MPV 11.7 Sodium 147 H Potassium 4.9 Chloride 118 H Carbon Dioxide 20.0 L Anion Gap 9 BUN 65 H Creatinine 2.74 H Estim Creat Clear Calc 31.59 Est GFR (MDRD) Af Amer 30 L Est GFR (MDRD) Non-Af 25 L BUN/Creatinine Ratio 23.7 H Glucose 119 H Calcium 8.5 Blood Type Antibody Screen Crossmatch POC Glucose 09/17/17 09/16/17 09/16/17 06:45 21:28 16:15 POC Glucose 127 H 115 H 136 H 09/16/17 11:10 POC Glucose 173 H Medical Necessity - Tobacco Use Smoking Status: Former smoker Tobacco Use: Non-smoker Assessment/Plan All Active Problems (Last Updated 09/16/17 @ 10:30 by eKlechi Adler MD) Hyperkalemia (Acute) Acute renal failure superimposed on stage 4 chronic kidney disease (Acute) Metabolic acidosis (Acute) Benign neoplasm of right lung (Resolved) Acute exacerbation of chronic obstructive pulmonary disease (COPD) (Resolved) Acute respiratory failure with hypoxemia (Resolved) Influenza B (Resolved) Lower GI bleed (Resolved) Severe sepsis (Resolved) Streptococcal pneumonia (Resolved) Urinary retention due to benign prostatic hyperplasia (Resolved) chronic anemia-heme positive stools I plan to perform upper and lower endoscopy. Given the patient's complex medical history and cardiac and respiratory issues, I would plan for bowel prep today and endoscopy with anesthesia providing monitored anesthetic care on morning. Patient was seen, the risks, benefits, complications, and possible alternatives and consents to the above procedure. He is received 2 units packed red cell transfusion. his hemoglobin responded appropriately after transfusion and has been stable overnight.
[2017-09-17] MEDS: Allopurinol 300 MG Tablet 150 MG PO (08:44)
[2017-09-17] MEDS: Cilostazol 50 MG Tablet PO ×2 (08:47→21:48)
[2017-09-17] MEDS: Isosorbide Mononitrate 30 MG Tablet PO (08:47)
[2017-09-17] MEDS: Metoprolol(XL)Succ 50 MG Tablet PO (08:49)
[2017-09-17] MEDS: 0.9% NaCl Peripheral Flush Adult/Peds IV (08:50)
[2017-09-17] MEDS: Dext 5%-0.45% NS 1,000 ML 75 ML IV (11:31)
[2017-09-17] MEDS: Insulin Lispro 100 UNIT/ML INSULN.PEN SC ×2 (11:32→16:57)
[2017-09-17 11:35] LABS: Bedside Glucose 232 mg/dL (70-110)
--- NOTE | 2017-09-17 12:46 | PCM.PN.REN ---
Patient Problems: Active and Suspected Problems (Last Updated 09/16/17 @ 10:30 by Kelechi Adler MD) Hyperkalemia (Acute) Subjective: breathing stable. Scheduled for colonscopy tomorrow. Renal fxn potassium improved. - Physical Exam General: Alert, Oriented x3, Cooperative Oral: Dry Mucosa Lungs: Clear to auscultation, Diminished Cardiovascular: Regular rate Abdomen: Bowel Sounds Present, Soft, Non Tender, Non-Distended, Obese Extremities: No edema Musculoskeletal: No Muscle Wasting Neurological: Cranial nerves II-XII grossly intact Psych/Mental Status: Normal Affect, Alert and oriented to time, place, person, mood and affect Vital Signs Temp Pulse Resp BP Pulse Ox 98.4 F 105 H 18 136/85 H 94 09/17/17 08:39 09/17/17 10:59 09/17/17 08:39 09/17/17 08:49 09/17/17 08:39 Oxygen Delivery Method Room Air Weight: 106.7 kg Body Mass Index (BMI) 31.0 Intake and Output for Last 24 Hours 09/15/17 09/16/17 09/17/17 23:59 23:59 23:59 Intake Total 240 / 240 5336 / 5336 508 / 508 Output Total 1200 / 1200 700 / 700 Balance 240 / 240 4136 / 4136 -192 / -192 Laboratory Tests Past 24 Hrs 09/16/17 09/16/17 09/16/17 06:28 18:57 18:57 WBC RBC Hgb 9.7 L Hct 31.9 L MCV MCH MCHC RDW RDW Differential Plt Count MPV Sodium 144 Potassium 5.2 H Chloride 117 H Carbon Dioxide 16.0 L Anion Gap 11 BUN 73 H Creatinine 2.89 H Estim Creat Clear Calc 29.95 Est GFR (MDRD) Af Amer 29 L Est GFR (MDRD) Non-Af 24 L BUN/Creatinine Ratio 25.3 H Glucose 134 H Calcium 8.3 L Blood Type A POSITIVE Antibody Screen NEGATIVE Crossmatch See Detail 09/17/17 09/17/17 05:00 05:00 WBC 6.9 RBC 3.54 L Hgb 9.4 L Hct 30.2 L MCV 85.3 MCH 26.6 L MCHC 31.1 L RDW 14.9 H RDW Differential 44.8 H Plt Count 206 MPV 11.7 Sodium 147 H Potassium 4.9 Chloride 118 H Carbon Dioxide 20.0 L Anion Gap 9 BUN 65 H Creatinine 2.74 H Estim Creat Clear Calc 31.59 Est GFR (MDRD) Af Amer 30 L Est GFR (MDRD) Non-Af 25 L BUN/Creatinine Ratio 23.7 H Glucose 119 H Calcium 8.5 Blood Type Antibody Screen Crossmatch POC Glucose 09/17/17 09/17/17 09/16/17 11:29 06:45 21:28 POC Glucose 232 H 127 H 115 H 09/16/17 09/16/17 16:15 11:10 POC Glucose 136 H 173 H Medical Necessity - Tobacco Use Smoking Status: Former smoker Tobacco Use: Non-smoker Assessment/Plan All Active Problems (Last Updated 09/16/17 @ 10:30 by Kelechi Adler MD) Hyperkalemia (Acute) Acute renal failure superimposed on stage 4 chronic kidney disease (Acute) Metabolic acidosis (Acute) Benign neoplasm of right lung (Resolved) Acute exacerbation of chronic obstructive pulmonary disease (COPD) (Resolved) Acute respiratory failure with hypoxemia (Resolved) Influenza B (Resolved) Lower GI bleed (Resolved) Severe sepsis (Resolved) Streptococcal pneumonia (Resolved) Urinary retention due to benign prostatic hyperplasia (Resolved) 1. NICK on CKD stage 4 likely due to prerenal event, diarrhea past 2-3 weeks. baseline creatinine 2.6 in May/June 2017 when last seen in my office. Creatinine increased to 4.0 with hyperkalemia on admit. Agree with discontinuation of ACEI. Nonoliguric on iv fluids. Creatinine improved to 3.59 today. Avoid NSAIDs, nephrotoxins 2. Acute hyperkalemia managed medically. K 7. improved to 4.9 3. Metabolic acidosis due to renal failure, diarrhea. continue sodium bicarb tid and on dc to home. 4. 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 Resume low dose lisinopril 5mg daily if potassium stable, renal fxn back to baseline 5. HTN stable 6. Anemia check iron studies, prbc as needed. Colonoscopy in am. 7. Diarrhea etiology unclear.colonscopy in am 8. CAD s/p CABG, NSTEMI 9. Morbid obesity, LADARIUS
[2017-09-17] MEDS: hydrALAZINE 25 MG Tablet PO ×2 (14:50→21:49)
[2017-09-17] MEDS: Electrolyte Solution/Peg's 4000 ML PO (16:58)
[2017-09-17 17:10] LABS: Bedside Glucose 192 mg/dL (70-110)
--- NOTE | 2017-09-17 17:36 | PN_ITS ---
Patient Problems: Active and Suspected Problems (Last Updated 09/16/17 @ 10:30 by Kelechi Adler MD) Hyperkalemia (Acute) Subjective: Patient denies any pain or distress. He was on clear liquids yesterday but requested a full diet this morning. Vitals/I&O's: Vital Signs Temp Pulse Resp BP Pulse Ox 98.8 F 94 20 H 129/80 H 94 09/17/17 14:50 09/17/17 16:05 09/17/17 14:50 09/17/17 14:50 09/17/17 14:50 Oxygen Delivery Method Room Air Weight: 106.7 kg Body Mass Index (BMI) 31.0 Intake and Output for Last 24 Hours 09/15/17 09/16/17 09/17/17 23:59 23:59 23:59 Intake Total 240 / 240 5336 / 5336 1729 / 1729 Output Total 1200 / 1200 1400 / 1400 Balance 240 / 240 4136 / 4136 329 / 329 General: Alert, Oriented x3, Cooperative HEENT: Atraumatic, PERRLA, EOMI, Normocephalic Neck: Supple, No JVD, Negative Carotid Bruits Lungs: Diminished Cardiovascular: Regular rate, No murmurs Abdomen: Bowel Sounds Present, Soft, Non Tender Extremities: No edema, Capillary Refill Less than 3 Seconds Skin: No rashes, No breakdown Musculoskeletal: No Tenderness to Palpation of Joints or Extremities Neurological: Cranial nerves II-XII grossly intact Psych/Mental Status: Normal Affect, Appropriate Laboratory Results 09/16/17 06:28: Crossmatch See Detail 09/16/17 18:57: Hgb 9.7 L, Hct 31.9 L 09/16/17 18:57: Sodium 144, Potassium 5.2 H, Chloride 117 H, Carbon Dioxide 16.0 L, Anion Gap 11, BUN 73 H, Creatinine 2.89 H, Estim Creat Clear Calc 29.95 , Est GFR (MDRD) Af Amer 29 L, Est GFR (MDRD) Non-Af 24 L, BUN/Creatinine Ratio 25.3 H, Glucose 134 H, Calcium 8.3 L 09/16/17 21:28: POC Glucose 115 H 09/17/17 05:00: WBC 6.9, RBC 3.54 L, Hgb 9.4 L, Hct 30.2 L, MCV 85.3, MCH 26.6 L , MCHC 31.1 L, RDW 14.9 H, RDW Differential 44.8 H, Plt Count 206, MPV 11.7 09/17/17 05:00: Sodium 147 H, Potassium 4.9, Chloride 118 H, Carbon Dioxide 20.0 L, Anion Gap 9, BUN 65 H, Creatinine 2.74 H, Estim Creat Clear Calc 31.59, Est GFR (MDRD) Af Amer 30 L, Est GFR (MDRD) Non-Af 25 L, BUN/Creatinine Ratio 23.7 H, Glucose 119 H, Calcium 8.5 09/17/17 06:45: POC Glucose 127 H 09/17/17 11:29: POC Glucose 232 H 09/17/17 16:56: POC Glucose 192 H Current Medications Albuterol/Ipratropium (Duoneb) 3 ml INHALATION Q4H PRN PRN PRN Reason: SOB &/OR WHEEZING Allopurinol (Zyloprim) 150 mg PO DAILYCM [facility] Last Admin: 09/17/17 08:44 Dose: 150 mg Alprazolam (Xanax) 0.25 mg PO Q6H PRN PRN Reason: ANXIETY Last Admin: 09/16/17 21:36 Dose: 0.25 mg Atorvastatin Calcium (Lipitor) 80 mg PO QHS [facility] Last Admin: 09/16/17 21:33 Dose: 80 mg Cilostazol (Pletal) 50 mg PO BID [facility] Last Admin: 09/17/17 08:47 Dose: 50 mg Dextrose (D50w Syringe) 0 gm IV X1 PRN; Protocol PRN Reason: Hypoglycemia Ergocalciferol (Vitamin D) 50,000 unit PO We@1000 [facility] Last Admin: 09/17/17 08:48 Dose: 50,000 unit Glucagon () 1 mg IM .X1 PRN PRN Reason: Hypoglycemia Hydralazine HCl (Apresoline) 25 mg PO TID [facility] Last Admin: 09/17/17 14:50 Dose: 25 mg Dextrose/Sodium Chloride () 1,000 mls @ 75 mls/hr IV .[id number] [facility] Last Admin: 09/17/17 11:31 Dose: 75 mls/hr Famotidine 20 mg/ Sodium (Chloride) 10 mls @ 300 mls/hr IV DAILY [facility] Last Admin: 09/17/17 08:50 Dose: 300 mls/hr Insulin Glargine (Lantus (Bkc)) 10 units SC QHS [facility] Last Admin: 09/16/17 21:32 Dose: Not Given Insulin Human Lispro (Humalog Kwikpen (Bkc)) 0 unit SC ACHS [facility] PRN Reason: Protocol Last Admin: 09/17/17 16:57 Dose: 2 u Isosorbide Mononitrate (Imdur) 30 mg PO DAILY [facility] Last Admin: 09/17/17 08:47 Dose: 30 mg Magnesium Hydroxide (Milk Of Magnesia) 30 ml PO DAILY PRN PRN Reason: Constipation Metoprolol Succinate (Toprol Xl (Beta Vanesa)) 50 mg PO DAILY [facility] Last Admin: 09/17/17 08:49 Dose: 50 mg Oxycodone HCl (Oxyir) 5 mg PO Q12H PRN PRN PRN Reason: SEVERE PAIN (6-10/10) Last Admin: 09/15/17 21:34 Dose: 5 mg Sodium Bicarbonate (Sodium Bicarbonate) 650 mg PO TID [facility] Last Admin: 09/17/17 14:49 Dose: 650 mg Sodium Chloride () 5 - 30 ml IV UD PRN PRN Reason: SALINE FLUSH Last Admin: 09/17/17 08:50 Dose: 10 ml Medical Necessity - Tobacco Use Smoking Status: Former smoker Tobacco Use: Non-smoker Assessment/Plan All Active Problems (Last Updated 09/16/17 @ 10:30 by Kelechi Adler MD) Hyperkalemia (Acute) Acute renal failure superimposed on stage 4 chronic kidney disease (Acute) Metabolic acidosis (Acute) Benign neoplasm of right lung (Resolved) Acute exacerbation of chronic obstructive pulmonary disease (COPD) (Resolved) Acute respiratory failure with hypoxemia (Resolved) Influenza B (Resolved) Lower GI bleed (Resolved) Severe sepsis (Resolved) Streptococcal pneumonia (Resolved) Urinary retention due to benign prostatic hyperplasia (Resolved) 1. Hyperkalemia Resolved 2 acute renal failure on chronic renal failure stage IV Patient is close to his baseline of 2.6 His creatinine today is 2.74. We will continue to hold his lisinopril for now. Per his rn critical care as his creatinine continues to improve we can give him a reduced dose of his home dose of lisinopril. Continue to hold lisinopril for now. Continue gentle hydration since patient will be n.p.o. after midnight.. Avoid Nephrotoxic medications 3 Metabolic acidosis Improving Likely due to #2. Continue sodium bicarbonate. Nephrology is following. 4. Anemia of kidney disease His hemoglobin has improved after receiving 2 units of packed red blood cells yesterday. Surgery is following up patients for upper and lower endoscopy. 5. Anemia due to blood loss, chronicity unspecified #4 Surgery is following up patients for upper and lower endoscopy. Continue Pepcid IV 6. History of CAD with stents Aspirin and Plavix on hold due to bleeding. Patient reports that his stent was placed about 10 years ago. If so, he may not even need Plavix. On discharge patient to follow up with cardiology. He denies any history of CABG. 7. DVT prophylaxis No chemical thromboprophylaxis secondary to positive occult stools SCD Disposition: Patient will not be discharged today since he may have upper and lower endoscopy tomorrow..
[2017-09-17] MEDS: Atorvastatin Calcium 80 MG Tablet PO (21:48)
[2017-09-17 23:16] LABS: Bedside Glucose 135 mg/dL (70-110)
[2017-09-18] VITALS (18 sets, daily range): BP systolic 125–164; BP diastolic 66–82; PULSE 78–109; RESP 16–18; TEMP 36.1–37.1; O2SAT 94–98; BMI 31.0
--- NOTE | 2017-09-18 | IMM_PTH ---
PATIENT: BARI KELLY LOC: [facility] U#:[id number] AGE/SX: 61/M ROOM: [facility] RE09/15/[address]: Dr. Kelechi Adler MD : 1955 BED: 1 DIS: 09/19/2017 SPEC #: [id number] RECD: 09/22/17 12:51 STATUS: SOUT REQ #: [id number] DOMINGO: 09/18/17 00:[address]: Rupert Ku DEPT: IMMUNOHISTOCHEMISTRY RECD BY: Madalyn Polo ENTERED: 09/22/17 12:52 SP TYPE: IMMUNO OTHR DR: Dr. Daysi Magana, DO Dr. Caesar Chavez, DO Dr. Jovita Marcum, DO MD Dr. Rupert Bishop MD Tissues: A - Stomach, NOS B - COLON BIOPSY Procedures: H Pylori (initial) MSH2 (add) MLH-1 (add) MSH6 (add) Anti-PMS2 (add) TRIVEDI-2 (add) P53 (add) KI-67 (initial) Comments: @ Ordering doctor for H.PYLORI edited from to @ by RGOOD at 09/22/17 1258 @ Submitting doctor edited from to @ by ELLE at 09/22/17 1258 [facility] IN[facility] [address] [address] SPECIMEN INFORMATION: Tissue Source: A ? Antral biopsy, B ? Hepatic flexure biopsy Clinical Info: Screen Specimen Number: [id number] A & B CPT code: 24505 x2, 48491 x6 METHODOLOGY: Deparaffinized sections of prefer/formalin-fixed tissue or PAP/DQ stained slides are incubated with monoclonal/polyclonal antibodies/oligonucleotide probes. Localization is made via biotin free immunoperoxidase method. Appropriate controls are performed and reacted as expected. Results on target cell population are indicated in the following table: RESULTS: ANTIBODY / CLONE RESULT Block A H Pylori (polyclonal) negative Block B COLON CANCER PROFILE (Prognostic Markers) Ki-67 (30-9) positive P53 (DO-7) negative MSH2 (25D12) positive, weak MSH6 (44) positive MLH-1 (M1) positive PMS2 (QUI3184) positive TRIVEDI-2 (SP21) positive These tests were developed and their performance characteristics determined by [facility]. They may not have been cleared or approved by the U.S. Food and Drug Administration. The FDA has determined that such clearance or approval is not necessary. INTERPRETATION: A. Antral biopsy: Negative for Helicobacter pylori organisms. B. Hepatic flexure, biopsy: Invasive adenocarcinoma. Result of Microsatellite Instability Study: Negative (no loss of mismatch protein; no microsatellite instability detected). SJ:nicanor 09/23/17
[2017-09-18] MEDS: Dext 5%-0.45% NS 1,000 ML 75 ML IV ×2 (01:03→14:28)
[2017-09-18 07:25] LABS: Bedside Glucose 131 mg/dL (70-110)
[2017-09-18 08:05] LABS: Absolute Lymphocyte Count 1.33 X10^3/ul (0.83-4.51); Absolute Neutrophil Count 4.6 X10^3/uL (2.0-7.7); Basophil# 0.04 X10^3/uL; Basophil% 0.5 % (0-1); Eosinophil# 0.73 X10^3/uL; Eosinophils% 9.8 % (0-5); Hematocrit 31.1 % (40-54); Lymphocyte # 1.33 X10^3/ul (4.0); Lymphocyte % 17.9 % (19-41); Mean Corp Hgb Conc 32.2 g/gl (32-36); Mean Corpuscular Hgb 27.2 pg (27.0-32.0); Mean Corpuscular Volume 84.7 fL (80-94); Mean Platelet Vol. 11.1 fl (6.2-12.0); Monocyte# 0.68 X10^3/uL; Monocyte% 9.2 % (0-10); Neutrophil # 4.62 X10^3/uL (2.7-7.7); Neutrophil % 62.3 % (47-70); Platelet Count 217 K/mm3 (150-450); RBC Distribution Width CV 14.9 % (11.6-14.6); RBC Distribution Width SD 44.3 fl (35.1-43.9); Red Blood Count 3.67 M/mm3 (4.6-6.2); White Blood Count 7.4 K/mm3 (4.4-11.0)
[2017-09-18] MEDS: Allopurinol 300 MG Tablet 150 MG PO (08:05)
[2017-09-18 08:07] LABS: POSITIVE COUNT NO; POSITIVE DIFFERENTIAL NO; POSITIVE MORPHOLOGY NO
[2017-09-18 08:36] LABS: Anion Gap 8 (5-15); BUN 45 mg/dL (7-18); BUN/Creat Ratio 18.4 RATIO (10-20); Calcium,Total 8.6 mg/dL (8.5-10.1); Chloride 115 mmol/L (98-107); Creatinine, Serum 2.44 mg/dL (0.70-1.30); EST Glomerular Filtration Rate 29 mL/min (>60); Est Glom Filt Rate - Afr Amer 35 mL/min (>60); Estimated Creatinine Clearance 35.47 ml/min; Glucose 132 mg/dL (74-106); Potassium 4.9 mmol/L (3.5-5.1); Sodium Level 143 mmol/L (136-145)
--- NOTE | 2017-09-18 08:56 | PCM.PN.REN ---
Patient Problems: Active and Suspected Problems (Last Updated 09/16/17 @ 10:30 by Kelechi Adler MD) Hyperkalemia (Acute) Subjective: scheduled for colonoscopy today - Physical Exam General: Alert, Oriented x3, Cooperative, No apparent distress Lungs: Clear to auscultation Cardiovascular: Regular rate Abdomen: Bowel Sounds Present, Soft, Non Tender, Non-Distended Extremities: No edema Psych/Mental Status: Normal Affect, Appropriate, Alert and oriented to time, place, person, mood and affect Vital Signs Temp Pulse Resp BP Pulse Ox 98.0 F 92 18 130/69 H 94 09/18/17 04:00 09/18/17 06:48 09/18/17 04:00 09/18/17 04:00 09/18/17 04:00 Oxygen Delivery Method Room Air Weight: 106.7 kg Body Mass Index (BMI) 31.0 Intake and Output for Last 24 Hours 09/16/17 09/17/17 09/18/17 23:59 23:59 23:59 Intake Total 5336 / 5336 3069 / 3069 1484 / 1484 Output Total 1200 / 1200 1900 / 1900 Balance 4136 / 4136 1169 / 1169 1484 / 1484 Laboratory Tests Past 24 Hrs 09/18/17 09/18/17 07:40 07:40 WBC 7.4 RBC 3.67 L Hgb 10.0 L Hct 31.1 L MCV 84.7 MCH 27.2 MCHC 32.2 RDW 14.9 H RDW Differential 44.3 H Plt Count 217 MPV 11.1 Immature Gran % (Auto) 0.300 Neut % (Auto) 62.3 Lymph % (Auto) 17.9 L [place] % (Auto) 9.2 Eos % (Auto) 9.8 H Baso % (Auto) 0.5 Absolute Neuts (auto) 4.6 Absolute Lymphs (auto) 1.33 Total Counted Not Reportable Sodium 143 Potassium 4.9 Chloride 115 H Carbon Dioxide 20.0 L Anion Gap 8 BUN 45 H Creatinine 2.44 H Estim Creat Clear Calc 35.47 Est GFR (MDRD) Af Amer 35 L Est GFR (MDRD) Non-Af 29 L BUN/Creatinine Ratio 18.4 Glucose 132 H Calcium 8.6 POC Glucose 09/18/17 09/17/17 09/17/17 07:14 21:57 16:56 POC Glucose 131 H 135 H 192 H 09/17/17 11:29 POC Glucose 232 H Medical Necessity - Tobacco Use Smoking Status: Former smoker Tobacco Use: Non-smoker Assessment/Plan All Active Problems (Last Updated 09/16/17 @ 10:30 by Kelechi Adler MD) Hyperkalemia (Acute) Acute renal failure superimposed on stage 4 chronic kidney disease (Acute) Metabolic acidosis (Acute) Benign neoplasm of right lung (Resolved) Acute exacerbation of chronic obstructive pulmonary disease (COPD) (Resolved) Acute respiratory failure with hypoxemia (Resolved) Influenza B (Resolved) Lower GI bleed (Resolved) Severe sepsis (Resolved) Streptococcal pneumonia (Resolved) Urinary retention due to benign prostatic hyperplasia (Resolved) 1. NICK on CKD stage 4 likely due to prerenal event, diarrhea past 2-3 weeks. Creatinine improving with iv fluids, back to baseline cr at 2.4. Agree with discontinuation of ACEI. Nonoliguric on iv fluids. Creatinine improved to 3.59 today. Avoid NSAIDs, nephrotoxins 2. Acute hyperkalemia improved. Off lisinopril 3. Metabolic acidosis due to renal failure, diarrhea. continue sodium bicarb tid and on dc to home. 4. 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 consider low dose ARB due to hx hyperkalemia on ACEI 5. HTN stable 6. Anemia check iron studies, prbc as needed. Colonoscopy in am. 7. Diarrhea etiology unclear.colonscopy in am 8. CAD s/p CABG, NSTEMI 9. Morbid obesity, LADARIUS
[2017-09-18] MEDS: Cilostazol 50 MG Tablet PO ×2 (09:21→21:51)
[2017-09-18] MEDS: Isosorbide Mononitrate 30 MG Tablet PO (09:21)
[2017-09-18] MEDS: ALPRAZolam 0.25 MG Tablet PO (09:21)
[2017-09-18] MEDS: Metoprolol(XL)Succ 50 MG Tablet PO (09:21)
[2017-09-18 11:10] LABS: Bedside Glucose 163 mg/dL (70-110)
--- NOTE | 2017-09-18 12:54 | PCM.PN.HOSP ---
Patient Problems: Active and Suspected Problems (Last Updated 09/16/17 @ 10:30 by Kelechi Adler MD) Hyperkalemia (Acute) Subjective: Is a 59-year-old male with hypertension, diabetes, coronary artery disease status post CABG and stents, CKD stage IV, BPH, partial right pneumonectomy due to benign lung tumor, and deficiency anemia, COPD, LADARIUS and hyperlipidemia. He was admitted based on outpatient labs finding of hyperkalemia with potassium of 6.8. He has been managed for hyperkalemia and has remained stable. Nephrology is on board. Is also noted to have dark stools which was initially thought to be due to iron therapy. Hemoglobin was noted to be 7.4 with guaiac positive stools. General surgery is on board and he is due to have EGD and colonoscopy tomorrow. HYperkalemia has resolved. Patient seen and examined this morning. He has no complaints this morning. He was not concerned because this colonoscopy and EGD have been postponed to around 4 PM late this afternoon. He denied any fever or chills, any cough or chest pain, any abdominal pain, any diarrhea vomiting. Review of systems otherwise negative. Vitals/I&O's: Vital Signs Temp Pulse Resp BP Pulse Ox 98.3 F 97 18 164/78 H 98 09/18/17 09:16 09/18/17 11:12 09/18/17 09:16 09/18/17 09:16 09/18/17 09:16 Oxygen Delivery Method Room Air Weight: 235 lb 3.732 oz Body Mass Index (BMI) 31.0 Intake and Output for Last 24 Hours 09/16/17 09/17/17 09/18/17 23:59 23:59 23:59 Intake Total 5336 / 5336 3069 / 3069 2057 Output Total 1200 / 1200 1900 / 1900 Balance 4136 / 4136 1169 / 1169 2057 General: Alert, Oriented x3, Cooperative HEENT: Atraumatic, PERRLA, EOMI, Normocephalic Oral: Moist Mucosa Neck: Supple Lungs: Clear to auscultation, Normal air movement, No rhonchi, No wheeze, No rales Cardiovascular: Regular rate, Regular Rhythm, Normal S1, Normal S2, No murmurs Abdomen: Bowel Sounds Present, Soft, Non Tender, Non-Distended, No Hepato-splenomegaly Extremities: No clubbing, No cyanosis, No edema, Capillary Refill Less than 3 Seconds Skin: No rashes, No breakdown Musculoskeletal: No Tenderness to Palpation of Joints or Extremities Lymphatic: No Cervical, Supraclavicular, or Inguinal Adenopathy Neurological: Cranial nerves II-XII grossly intact Psych/Mental Status: Normal Affect, Appropriate, Alert and oriented to time, place, person, mood and affect Laboratory Results 09/17/17 16:56: POC Glucose 192 H 09/17/17 21:57: POC Glucose 135 H 09/18/17 07:14: POC Glucose 131 H 09/18/17 07:40: WBC 7.4, RBC 3.67 L, Hgb 10.0 L, Hct 31.1 L, MCV 84.7, MCH 27.2, MCHC 32.2, RDW 14.9 H, RDW Differential 44.3 H, Plt Count 217, MPV 11.1, Immature Gran % (Auto) 0.300, Neut % (Auto) 62.3, Lymph % (Auto) 17.9 L, [place] % (Auto) 9.2, Eos % (Auto) 9.8 H, Baso % (Auto) 0.5, Absolute Neuts (auto) 4.6, Absolute Lymphs (auto) 1.33, Total Counted Not Reportable 09/18/17 07:40: Sodium 143, Potassium 4.9, Chloride 115 H, Carbon Dioxide 20.0 L, Anion Gap 8, BUN 45 H, Creatinine 2.44 H, Estim Creat Clear Calc 35.47, Est GFR (MDRD) Af Amer 35 L, Est GFR (MDRD) Non-Af 29 L, BUN/Creatinine Ratio 18.4, Glucose 132 H, Calcium 8.6 09/18/17 11:02: POC Glucose 163 H Current Medications Albuterol/Ipratropium (Duoneb) 3 ml INHALATION Q4H PRN PRN PRN Reason: SOB &/OR WHEEZING Allopurinol (Zyloprim) 150 mg PO DAILYCM ZACH Last Admin: 09/18/17 08:05 Dose: 150 mg Alprazolam (Xanax) 0.25 mg PO Q6H PRN PRN Reason: ANXIETY Last Admin: 07/05/18 09:21 Dose: 0.25 mg Atorvastatin Calcium (Lipitor) 80 mg PO QHS [facility] Last Admin: 09/17/17 21:48 Dose: 80 mg Cilostazol (Pletal) 50 mg PO BID [facility] Last Admin: 09/18/17 09:21 Dose: 50 mg Dextrose (D50w Syringe) 0 gm IV X1 PRN; Protocol PRN Reason: Hypoglycemia Ergocalciferol (Vitamin D) 50,000 unit PO We@1000 [facility] Last Admin: 09/17/17 08:48 Dose: 50,000 unit Glucagon () 1 mg IM .X1 PRN PRN Reason: Hypoglycemia Hydralazine HCl (Apresoline) 25 mg PO TID [facility] Last Admin: 09/18/17 07:25 Dose: Not Given Dextrose/Sodium Chloride () 1,000 mls @ 75 mls/hr IV .[id number] [facility] Last Admin: 09/18/17 01:03 Dose: 75 mls/hr Famotidine 20 mg/ Sodium (Chloride) 10 mls @ 300 mls/hr IV DAILY [facility] Last Admin: 09/18/17 09:22 Dose: 300 mls/hr Insulin Glargine (Lantus (Bkc)) 10 units SC QHS [facility] Last Admin: 09/17/17 22:14 Dose: Not Given Insulin Human Lispro (Humalog Kwikpen (Bkc)) 0 unit SC ACHS [facility] PRN Reason: Protocol Last Admin: 09/18/17 11:24 Dose: Not Given Isosorbide Mononitrate (Imdur) 30 mg PO DAILY [facility] Last Admin: 09/18/17 09:21 Dose: 30 mg Magnesium Hydroxide (Milk Of Magnesia) 30 ml PO DAILY PRN PRN Reason: Constipation Metoprolol Succinate (Toprol Xl (Beta Vanesa)) 50 mg PO DAILY [facility] Last Admin: 09/18/17 09:21 Dose: 50 mg Oxycodone HCl (Oxyir) 5 mg PO Q12H PRN PRN PRN Reason: SEVERE PAIN (6-10/10) Last Admin: 09/15/17 21:34 Dose: 5 mg Sodium Bicarbonate (Sodium Bicarbonate) 650 mg PO TID [facility] Last Admin: 09/18/17 07:26 Dose: Not Given Sodium Chloride () 5 - 30 ml IV UD PRN PRN Reason: SALINE FLUSH Last Admin: 09/17/17 08:50 Dose: 10 ml Medical Necessity - Tobacco Use Smoking Status: Former smoker Tobacco Use: Non-smoker Assessment/Plan All Active Problems (Last Updated 09/16/17 @ 10:30 by Kelechi Adler MD) Hyperkalemia (Acute) Acute renal failure superimposed on stage 4 chronic kidney disease (Acute) Metabolic acidosis (Acute) Benign neoplasm of right lung (Resolved) Acute exacerbation of chronic obstructive pulmonary disease (COPD) (Resolved) Acute respiratory failure with hypoxemia (Resolved) Influenza B (Resolved) Lower GI bleed (Resolved) Severe sepsis (Resolved) Streptococcal pneumonia (Resolved) Urinary retention due to benign prostatic hyperplasia (Resolved) 1. Hyperkalemia: Resolved. K is now 4.9 2. NICK-on CKD IV improiving. baseline CR is ~ 2.6, Cr is 2.44 today nephrology on board; lisinopril dced on admission on IVF gentle hydration as he is NPO for EGD and colonoscopy today 3. NOngap acidosis: resolving. HCO3 is now 20. Likely due to NICK on CKD. Received sodium bicarbonate. WIll monitor 4. ANemia of chronic disease: s/p 2 units of PRBCs. For EGD and colonoscopy today o/a of positive FOBT. on IV famotidine 5. CAD s/p stents: aspirin nad plavix on hold due to anemia and postive FOBT>\ 6. Diabetes: on lantus and ISS. currenlty NPO. Accuchecks ACHS 7. HTN: fairly controlled. on metoprolol. lisinopril on hold o/a of hyperkalemia 6. DVT prophylaxis: SCDs. Disposition: for possible dc tomorrow after EGD and colonoscopy. Code Visit Inpatient E&M: 88756 Subs Hosp L2
--- NOTE | 2017-09-18 13:01 | PN_ITS ---
Patient Problems: Active and Suspected Problems (Last Updated 09/16/17 @ 10:30 by Kelechi Adler MD) Hyperkalemia (Acute) Subjective: Is a 59-year-old male with hypertension, diabetes, coronary artery disease status post CABG and stents, CKD stage IV, BPH, partial right pneumonectomy due to benign lung tumor, and deficiency anemia, COPD, LADARIUS and hyperlipidemia. He was admitted based on outpatient labs finding of hyperkalemia with potassium of 6.8. He has been managed for hyperkalemia and has remained stable. Nephrology is on board. Is also noted to have dark stools which was initially thought to be due to iron therapy. Hemoglobin was noted to be 7.4 with guaiac positive stools. General surgery is on board and he is due to have EGD and colonoscopy tomorrow. HYperkalemia has resolved. Patient seen and examined this morning. He has no complaints this morning. He was not concerned because this colonoscopy and EGD have been postponed to around 4 PM late this afternoon. He denied any fever or chills, any cough or chest pain, any abdominal pain, any diarrhea vomiting. Review of systems otherwise negative. Vitals/I&O's: Vital Signs Temp Pulse Resp BP Pulse Ox 98.3 F 97 18 164/78 H 98 09/18/17 09:16 09/18/17 11:12 09/18/17 09:16 09/18/17 09:16 09/18/17 09:16 Oxygen Delivery Method Room Air Weight: 235 lb 3.732 oz Body Mass Index (BMI) 31.0 Intake and Output for Last 24 Hours 09/16/17 09/17/17 09/18/17 23:59 23:59 23:59 Intake Total 5336 / 5336 3069 / 3069 2057 Output Total 1200 / 1200 1900 / 1900 Balance 4136 / 4136 1169 / 1169 2057 General: Alert, Oriented x3, Cooperative HEENT: Atraumatic, PERRLA, EOMI, Normocephalic Oral: Moist Mucosa Neck: Supple Lungs: Clear to auscultation, Normal air movement, No rhonchi, No wheeze, No rales Cardiovascular: Regular rate, Regular Rhythm, Normal S1, Normal S2, No murmurs Abdomen: Bowel Sounds Present, Soft, Non Tender, Non-Distended, No Hepato- splenomegaly Extremities: No clubbing, No cyanosis, No edema, Capillary Refill Less than 3 Seconds Skin: No rashes, No breakdown Musculoskeletal: No Tenderness to Palpation of Joints or Extremities Lymphatic: No Cervical, Supraclavicular, or Inguinal Adenopathy Neurological: Cranial nerves II-XII grossly intact Psych/Mental Status: Normal Affect, Appropriate, Alert and oriented to time, place, person, mood and affect Laboratory Results 09/17/17 16:56: POC Glucose 192 H 09/17/17 21:57: POC Glucose 135 H 09/18/17 07:14: POC Glucose 131 H 09/18/17 07:40: WBC 7.4, RBC 3.67 L, Hgb 10.0 L, Hct 31.1 L, MCV 84.7, MCH 27.2 , MCHC 32.2, RDW 14.9 H, RDW Differential 44.3 H, Plt Count 217, MPV 11.1, Immature Gran % (Auto) 0.300, Neut % (Auto) 62.3, Lymph % (Auto) 17.9 L, [place] % (Auto) 9.2, Eos % (Auto) 9.8 H, Baso % (Auto) 0.5, Absolute Neuts (auto) 4.6, Absolute Lymphs (auto) 1.33, Total Counted Not Reportable 09/18/17 07:40: Sodium 143, Potassium 4.9, Chloride 115 H, Carbon Dioxide 20.0 L , Anion Gap 8, BUN 45 H, Creatinine 2.44 H, Estim Creat Clear Calc 35.47, Est GFR (MDRD) Af Amer 35 L, Est GFR (MDRD) Non-Af 29 L, BUN/Creatinine Ratio 18.4, Glucose 132 H, Calcium 8.6 09/18/17 11:02: POC Glucose 163 H Current Medications Albuterol/Ipratropium (Duoneb) 3 ml INHALATION Q4H PRN PRN PRN Reason: SOB &/OR WHEEZING Allopurinol (Zyloprim) 150 mg PO DAILYCM [facility] Last Admin: 09/18/17 08:05 Dose: 150 mg Alprazolam (Xanax) 0.25 mg PO Q6H PRN PRN Reason: ANXIETY Last Admin: 07/05/18 09:21 Dose: 0.25 mg Atorvastatin Calcium (Lipitor) 80 mg PO QHS [facility] Last Admin: 09/17/17 21:48 Dose: 80 mg Cilostazol (Pletal) 50 mg PO BID [facility] Last Admin: 09/18/17 09:21 Dose: 50 mg Dextrose (D50w Syringe) 0 gm IV X1 PRN; Protocol PRN Reason: Hypoglycemia Ergocalciferol (Vitamin D) 50,000 unit PO We@1000 [facility] Last Admin: 09/17/17 08:48 Dose: 50,000 unit Glucagon () 1 mg IM .X1 PRN PRN Reason: Hypoglycemia Hydralazine HCl (Apresoline) 25 mg PO TID [facility] Last Admin: 09/18/17 07:25 Dose: Not Given Dextrose/Sodium Chloride () 1,000 mls @ 75 mls/hr IV .[id number] [facility] Last Admin: 09/18/17 01:03 Dose: 75 mls/hr Famotidine 20 mg/ Sodium (Chloride) 10 mls @ 300 mls/hr IV DAILY [facility] Last Admin: 09/18/17 09:22 Dose: 300 mls/hr Insulin Glargine (Lantus (Bkc)) 10 units SC QHS [facility] Last Admin: 09/17/17 22:14 Dose: Not Given Insulin Human Lispro (Humalog Kwikpen (Bkc)) 0 unit SC ACHS [facility] PRN Reason: Protocol Last Admin: 09/18/17 11:24 Dose: Not Given Isosorbide Mononitrate (Imdur) 30 mg PO DAILY [facility] Last Admin: 09/18/17 09:21 Dose: 30 mg Magnesium Hydroxide (Milk Of Magnesia) 30 ml PO DAILY PRN PRN Reason: Constipation Metoprolol Succinate (Toprol Xl (Beta Vanesa)) 50 mg PO DAILY [facility] Last Admin: 09/18/17 09:21 Dose: 50 mg Oxycodone HCl (Oxyir) 5 mg PO Q12H PRN PRN PRN Reason: SEVERE PAIN (6-10/10) Last Admin: 09/15/17 21:34 Dose: 5 mg Sodium Bicarbonate (Sodium Bicarbonate) 650 mg PO TID [facility] Last Admin: 09/18/17 07:26 Dose: Not Given Sodium Chloride () 5 - 30 ml IV UD PRN PRN Reason: SALINE FLUSH Last Admin: 09/17/17 08:50 Dose: 10 ml Medical Necessity - Tobacco Use Smoking Status: Former smoker Tobacco Use: Non-smoker Assessment/Plan All Active Problems (Last Updated 09/16/17 @ 10:30 by Kelechi Adler MD) Hyperkalemia (Acute) Acute renal failure superimposed on stage 4 chronic kidney disease (Acute) Metabolic acidosis (Acute) Benign neoplasm of right lung (Resolved) Acute exacerbation of chronic obstructive pulmonary disease (COPD) (Resolved) Acute respiratory failure with hypoxemia (Resolved) Influenza B (Resolved) Lower GI bleed (Resolved) Severe sepsis (Resolved) Streptococcal pneumonia (Resolved) Urinary retention due to benign prostatic hyperplasia (Resolved) 1. Hyperkalemia: Resolved. K is now 4.9 2. NICK-on CKD IV * improiving. baseline CR is ~ 2.6, Cr is 2.44 today * nephrology on board; lisinopril dced on admission * on IVF gentle hydration as he is NPO for EGD and colonoscopy today * 3. NOngap acidosis: resolving. HCO3 is now 20. Likely due to NICK on CKD. Received sodium bicarbonate. WIll monitor 4. ANemia of chronic disease: s/p 2 units of PRBCs. For EGD and colonoscopy today o/a of positive FOBT. on IV famotidine 5. CAD s/p stents: aspirin nad plavix on hold due to anemia and postive FOBT>\ 6. Diabetes: on lantus and ISS. currenlty NPO. Accuchecks ACHS 7. HTN: fairly controlled. on metoprolol. lisinopril on hold o/a of hyperkalemia 6. DVT prophylaxis: SCDs. Disposition: for possible dc tomorrow after EGD and colonoscopy. Code Visit Inpatient E&M: 38074 Subs Hosp L2
[2017-09-18] MEDS: Sodium Bicarbonate 650 MG Tablet PO ×2 (13:56→21:51)
[2017-09-18] MEDS: hydrALAZINE 25 MG Tablet PO ×2 (13:56→21:50)
[2017-09-18 16:15] LABS: Bedside Glucose 129 mg/dL (70-110)
--- NOTE | 2017-09-18 17:20 | COLBX_PTH ---
PATIENT: BARI KELLY LOC: [facility] U#:[id number] AGE/SX: 61/M ROOM: [facility] RE09/15/[address]: Dr. Kelechi Adler MD : 1955 BED: 1 DIS: 09/19/2017 SPEC #: [id number] RECD: 09/18/17 18:37 STATUS: KAYKAY REQ #: [id number] DOMINGO: 09/18/17 17:[address]: Rupert Ku DEPT: SURGICAL PATHOLOGY RECD BY: Rupert Cuba ENTERED: 09/19/17 11:36 SP TYPE: COLON BX OTHR DR: Dr. Daysi Magana, DO Dr. Caesar Chavez, DO Dr. Jovita Marcum, DO MD Dr. Rupert Bishop MD Tissues: A - Gastric mucous membrane B - COLON BIOPSY C - COLON BIOPSY D - COLON BIOPSY Procedures: Surgery Specimen Level IV Comments: @ Ordering doctor for SUIV edited from to @ by ELLE at 09/19/17 1533 @ Submitting doctor edited from to @ by TABITHAOD at 09/19/17 1533 HEADER OPERATION: Colonoscopy / EGD PRE-OP DIAGNOSIS: Screen TISSUE SUBMITTED: A ? Antral biopsy (EGD), B ? Hepatic flexure biopsy ? colon CA (colonoscopy), C ? Polyp proximal to clip, D ? Polyp at 30 cm MICROSCOPIC DIAGNOSIS A. Antral biopsy: Mild gastritis. B. Hepatic flexure, biopsy: Invasive adenocarcinoma. Hyperplastic polyp. See comment. C. Polyp proximal to clip, biopsy: Fragments of tubular adenoma. D. Polyp at 30 cm, biopsy: Hyperplastic polyp. SJ:nicanor 09/22/17 COMMENT A. The results of immunohistochemistry for Helicobacter pylori will be reported separately ([id number]). B. The results of Immunohistochemistry ([id number]) for mismatch repair of protein will be reported separately. Case has been reviewed in consultation with Dr. Fairchild who concurs with the above diagnosis. IDC:AM MICROSCOPIC DESCRIPTION Slides are reviewed. A. The specimen shows fragments of gastric mucosa with chronic inflammatory cell infiltrates in the lamina propria consisting of lymphocytes and plasma cells, consistent with mild chronic gastritis. GROSS DESCRIPTION A - Received in fixative is one container labeled with the patient's name and designated antral biopsy. The specimen consists of two irregular fragments of light baptiste soft tissue that in aggregate measure 0.5 x 0.5 x 0.2 cm. The specimen is totally submitted in one cassette. B - Received in fixative is one container labeled with the patient's name and designated hepatic flexure. The specimen consists of two irregular fragments of light baptiste soft tissue that in aggregate measure 0.7 x 0.5 x 0.2 cm. The specimen is totally submitted in one cassette. C - Received in fixative is one container labeled with the patient's name and designated polyp proximal. The specimen consists of two irregular fragments of light baptiste soft tissue that in aggregate measure 0.6 x 0.6 x 0.2 cm. The specimen is totally submitted in one cassette. D - Received in fixative is one container labeled with the patient's name and designated polyp at 30 cm. The specimen consists of two irregular fragments of light baptiste soft tissue that in aggregate measure 1 x 0.7 x 0.2 cm. The specimen is totally submitted in one cassette. / AM:nicaonr 09/19/17 TC:0 CPT: 28215 x4
--- NOTE | 2017-09-18 17:54 | RAD_ITS ---
STUDY: X-RAY - ABDOMEN/PELVIS REASON FOR EXAM: Male, 61 years old. Abdominal distention, suspecting colon cancer after having a colonoscopy TECHNIQUE: Single AP view of the abdomen / pelvis. COMPARISON: None. FINDINGS: Normal visualized lung bases. There is an unremarkable bowel gas pattern. There is no demonstrated free abdominal air. The visualized liver, spleen and kidneys are grossly normal in size and morphology. Normal soft tissue structures. Normal visualized osseous structures. RAD/Abdomen Single View IMPRESSION: Normal x-ray examination of the abdomen and pelvis. Electronically Signed: Zaire Hunter MD at 19:39 EDT , Service support ,
--- NOTE | 2017-09-18 17:55 | CT_ITS ---
STUDY: CT ABDOMEN AND PELVIS WITHOUT CONTRAST REASON FOR EXAM: Male, 61 years old. RENAL FAILURE COLON CANCER, POLYPOSIS. RIGHT LUNG SURG RADIATION DOSAGE (If Supplied By Facility): CTDIvol = ( 19.62 ) mGy, DLP = ( 1108.11 ) mGycm TECHNIQUE: Transaxial images were obtained from the dome of the diaphragm to the symphysis pubis without oral contrast, and without intravenous contrast. Sagittal and coronal images were reconstructed. COMPARISON: None. FINDINGS: There are atherosclerotic calcifications of visualized coronary arteries. Near the aortic cross there are small subcentimeter lymph nodes. The visualized portions of the heart are within normal limits. Normal liver. Normal gallbladder and extrahepatic biliary system. Normal spleen. Normal pancreas. Normal bilateral adrenal glands. Normal right kidney. Normal left kidney. Normal visualized stomach. Normal small intestine. 17mm linear foreign body in the ascending colon. 11mm linear foreign body in the distal transverse colon. There is non-visualization of the appendix. Inflammation overlying the diverticulum of the distal ascending colon and sigmoid colon. This suggests multifocal diverticulitis. There are calcifications of the abdominal aorta and vascular structures. This is consistent for atherosclerotic disease. There is no abdominal aortic aneurysm. Normal inferior vena cava. Subcentimeter mesenteric lymph nodes. Normal urinary bladder. There are prostatic calcifications. Normal abdominal wall. There are degenerative changes of the osseous structures. CT/Abdomen/Pelvis without Cont IMPRESSION: Inflammation overlying the diverticulum of the distal ascending colon and sigmoid colon. This suggests multifocal diverticulitis. 17mm linear foreign body in the ascending colon. 11mm linear foreign body in the distal transverse colon. Other findings as above. Electronically Signed: Zaire Hunter MD at 19:26 EDT , Service support ,
--- NOTE | 2017-09-18 17:58 | OP.PCM_ITS ---
Report of Operation Date of Procedure: 09/18/17 Pre-Operative Diagnosis: ANEMIA, HEME POSITIVE STOOLS Post-Operative Diagnosis: MILD GASTRITIS, HEPATIC COLON CANCER, POLYPOSIS TO SIGMOID Surgery/Procedure Performed:: EGD WITH BIOPSY, COLONSOCOPY WITH BIOPSY AND POLYPECTOMY - MULTIPLE form setter steel forms: None Type of Anesthesia:: MAC Anesthesiologist: Jony Jorgensen [id number] Specimen's removed: antral, hepatic flexure mass, descending colon proximal to clip, sigmoid polyps Description of Procedure: The patient was brought to the endoscopy suite. Sign in was performed verifying patient, site, planned procedure, critical nursing information, the patient was monitored with cardiac, pulse oximetric, and blood pressure monitoring devices. Monitored anesthetic care was provided for sedation. Following IV sedation and after the oropharynx was sprayed with Cetacaine spray , a video gastroscope was inserted in the oropharynx and advanced down the esophagus without difficulty. The scope was advanced through the stomach, through the pylorus through the duodenum to the proximal jejunum. the jejunum and duodenum appeared unremarkable. There was mild gastritis. Biopsies were obtained for H. pylori and pathology. The remainder of the stomach was unremarkable area as the scope was retroflexed. The GE junction appeared unremarkable. The scope was withdrawn, the esophagus appeared unremarkable The patient was positioned for colonoscopy. A digital rectal exam was performed which revealed no palpable abnormalities The video colonoscope was inserted and advanced to the cecum as verified by the ileocecal valve, cecal base anatomic features and palpation. there were multiple polyps in the cecum and ascending colon area. As the scope was withdrawn to the level of the hepatic flexure, there was a fungating mass seen, felt to be on the inner curvature of the right colon/hepatic flexure. This was approximately two thirds circumference. The area was friable and slowly losing. Multiple biopsies were taken from the tumor. A clip was then placed to demonstrate the location of this abnormality. The site was then tattooed in 3 quadrants with dodie ink. as the scope was further withdrawn, polyps persisted throughout the remainder of the transverse colon, splenic flexure, descending colon, rectosigmoid area. These approach being too numerous to count. A clip was placed and was felt to be the descending colon approximately 60 cm. Above the location of polypectomy was performed. This polyp was sent separately. Below this location approximately 35 cm, 2 polyps were removed. Again, there were multiple polyps located throughout, usually 1-2 polyps per colonic fold. the patient had a few diverticula in the sigmoid area. Given the large number of polyps and the fact that the patient's Plavix had just been held for 2 days, I just performed sampling to verify many polyps. As the scope was further withdrawn. There seemed to be relative sparing in the low rectum area. The scope was retroflexed without abnormalities. The patient tolerated the procedure well and was brought to recovery in stable condition
[2017-09-18] MEDS: oxyCODONE 5 MG Tablet PO (20:14)
[2017-09-18] MEDS: 0.9% NaCl Peripheral Flush Adult/Peds IV (20:14)
[2017-09-18] MEDS: Atorvastatin Calcium 80 MG Tablet PO (21:51)
[2017-09-18] MEDS: Morphine 2 MG/ML Syringe IV (21:51)
--- NOTE | 2017-09-18 23:11 | RAD_ITS ---
STUDY: X-RAY - ABDOMEN/PELVIS REASON FOR EXAM: Male, 61 years old. LLQ pain TECHNIQUE: Two AP supine views of the abdomen and pelvis. COMPARISON: None. FINDINGS: Small right pleural effusion. There is an unremarkable bowel gas pattern. There is no demonstrated free abdominal air. The visualized liver, spleen and kidneys are grossly normal in size and morphology. Normal soft tissue structures. Normal visualized osseous structures. RAD/Abd Inc Decub and/or Erect IMPRESSION: Normal x-ray examination of the abdomen and pelvis. Electronically Signed: Hugo Pizarro MD at 0:14 EDT Tel , Service support ,
[2017-09-18 23:21] LABS: Bedside Glucose 134 mg/dL (70-110)
[2017-09-19] VITALS (8 sets, daily range): BP systolic 114–119; BP diastolic 68–75; PULSE 101–118; RESP 16–20; TEMP 37–37.2; O2SAT 96
[2017-09-19] MEDS: Morphine 2 MG/ML Syringe IV (03:23)
[2017-09-19] MEDS: 0.9% NaCl Peripheral Flush Adult/Peds IV (03:24)
[2017-09-19] MEDS: Ipratropium/Albuterol Sulfate 3 ML AMPUL.NEB INHALATION (04:03)
[2017-09-19] MEDS: Sodium Bicarbonate 650 MG Tablet PO (05:06)
[2017-09-19] MEDS: hydrALAZINE 25 MG Tablet PO (05:06)
--- NOTE | 2017-09-19 05:30 | RAD_ITS ---
STUDY: X-RAY CHEST REASON FOR EXAM: Male, 61 years old. Chronic renal failure. Shortness of breath. TECHNIQUE: AP and lateral views of the chest. COMPARISON: Comparison is made with prior study dated May 15, 2017. FINDINGS: Decreased bronchovascular markings in the right upper lobe suggestive of emphysematous change. Stable mild increased markings at the lung bases suggestive of scarring. There is no demonstrated pleural abnormality. Normal size heart. Normal mediastinum and elizabeth. There is prominence of the pulmonary hilar arteries without peripheral pulmonary vascular congestion, suggesting pulmonary hypertension. Normal visualized aortic arch and descending thoracic aorta. Normal visualized thoracic spine. Healed right rib fractures. There is no demonstrated abnormality of the visualized soft tissue structures of the upper abdomen. RAD/Chest PA and Lateral IMPRESSION: Stable examination. Electronically Signed: Herbert Carroll MD at 9:24 EDT Tel [phone], Service support ,
[2017-09-19 07:05] LABS: Bedside Glucose 155 mg/dL (70-110)
[2017-09-19] MEDS: Dext 5%-0.45% NS 1,000 ML 75 ML IV (08:53)
[2017-09-19] MEDS: Allopurinol 300 MG Tablet 150 MG PO (08:58)
[2017-09-19] MEDS: Insulin Lispro 100 UNIT/ML INSULN.PEN SC (08:58)
[2017-09-19] MEDS: Metoprolol(XL)Succ 50 MG Tablet PO (09:40)
[2017-09-19] MEDS: Cilostazol 50 MG Tablet PO (09:41)
[2017-09-19] MEDS: Isosorbide Mononitrate 30 MG Tablet PO (09:41)
--- NOTE | 2017-09-19 10:33 | PCM.DC ---
- Discharge Diagnoses Current Active Problems: Current Active and Chronic Problems (Last Updated 09/16/17 @ 10:30 by Kelechi Adler MD) Hyperkalemia (Acute) Anemia of chronic renal failure (Chronic) H/O pneumonectomy (Chronic) Right due to benign tumor Peripheral vascular disease (Chronic) You will use the following diet at home:: Calorie/Carbohydrate Controlled (specify 1200, 1400, etc) - 1800 per day. Your food should be the consistency of: Regular Discharge Activity: Return to Normal Activity Call your doctor if you observe: Fever of 101 or Higher, Uncontrolled pain Allergies/Adverse Reactions: Allergies No Known Allergies Allergy (Verified 08/12/17 10:31) Medications to take at Discharge Albuterol Inhaler [Ventolin Hfa] 1 - 2 puff INHALATION Q6H PRN PRN 05/14/17 Aspirin 81 mg PO DAILY 05/14/17 Insulin Aspart [Novolog Flexpen] 45 units SC TIDCM 05/14/17 Insulin Degludec [Tresiba Flextouch U-100] 60 unit SC BID 05/14/17 Nitroglycerin [Nitrostat] 0.4 mg SUBLINGUAL Q5M PRN 05/14/17 Oxycodone [Oxyir] 5 mg PO BID PRN PRN 05/14/17 Simvastatin 80 mg PO QHS 05/14/17 Oxygen, Home [Home Oxygen] 2 - 3 lpm NASAL UD #1 unit 05/18/17 Albuterol Aerosols [Ventolin Aerosols] 2.5 mg INHALATION Q4H PRN PRN 09/15/17 Allopurinol [Zyloprim] 300 mg PO DAILYCM 09/15/17 Cilostazol 100 mg PO BID 09/15/17 Colchicine 0.6 mg PO TID PRN 09/15/17 Ergocalciferol [Vitamin D] 50,000 unit PO Q7D 09/15/17 Ferrous Sulfate 325 mg PO DAILY 09/15/17 Finasteride [Proscar] 5 mg PO DAILY 09/15/17 Isosorbide Mononitrate [Imdur] 30 mg PO DAILY 09/15/17 Metoprolol(XL)Succ [Toprol Xl (Beta Vanesa)] 50 mg PO DAILY 09/15/17 Nebulizer [Aeroneb Go Nebulizer] 1 each MC 4X/DAY 09/15/17 Pantoprazole Sodium [Protonix] 40 mg PO DAILY 09/15/17 Tamsulosin HCl [Flomax] 0.4 mg PO DAILY@1730 09/15/17 hydrALAZINE [Apresoline] 25 mg PO TID 09/15/17 Sodium Bicarbonate 650 mg PO TID 30 Days #90 tab 09/19/17 Primary Care Physician: Caesar Chavez DO [Primary Care Provider] - Please follow up with your Primary Care Physician in: 5-10 days Test Results: Test results from this visit will be discussed in further detail at your follow-up appointment, if applicable. Please Follow Up With: Rupert Ku MD When: 3 to 7 days Please Follow Up With: Daysi Magana DO When: 5 to 10 days
--- NOTE | 2017-09-19 10:43 | DCINST_ITS ---
- Discharge Diagnoses Current Active Problems: Current Active and Chronic Problems (Last Updated 09/16/17 @ 10:30 by Kelechi Adler MD) Hyperkalemia (Acute) Anemia of chronic renal failure (Chronic) H/O pneumonectomy (Chronic) Right due to benign tumor Peripheral vascular disease (Chronic) You will use the following diet at home:: Calorie/Carbohydrate Controlled ( specify 1200, 1400, etc) - 1800 per day. Your food should be the consistency of: Regular Discharge Activity: Return to Normal Activity Call your doctor if you observe: Fever of 101 or Higher, Uncontrolled pain Allergies/Adverse Reactions: Allergies No Known Allergies Allergy (Verified 08/12/17 10:31) Medications to take at Discharge Albuterol Inhaler [Ventolin Hfa] 1 - 2 puff INHALATION Q6H PRN PRN 05/14/17 Aspirin 81 mg PO DAILY 05/14/17 Insulin Aspart [Novolog Flexpen] 45 units SC TIDCM 05/14/17 Insulin Degludec [Tresiba Flextouch U-100] 60 unit SC BID 05/14/17 Nitroglycerin [Nitrostat] 0.4 mg SUBLINGUAL Q5M PRN 05/14/17 Oxycodone [Oxyir] 5 mg PO BID PRN PRN 05/14/17 Simvastatin 80 mg PO QHS 05/14/17 Oxygen, Home [Home Oxygen] 2 - 3 lpm NASAL UD #1 unit 05/18/17 Albuterol Aerosols [Ventolin Aerosols] 2.5 mg INHALATION Q4H PRN PRN 09/15/17 Allopurinol [Zyloprim] 300 mg PO DAILYCM 09/15/17 Cilostazol 100 mg PO BID 09/15/17 Colchicine 0.6 mg PO TID PRN 09/15/17 Ergocalciferol [Vitamin D] 50,000 unit PO Q7D 09/15/17 Ferrous Sulfate 325 mg PO DAILY 09/15/17 Finasteride [Proscar] 5 mg PO DAILY 09/15/17 Isosorbide Mononitrate [Imdur] 30 mg PO DAILY 09/15/17 Metoprolol(XL)Succ [Toprol Xl (Beta Vanesa)] 50 mg PO DAILY 09/15/17 Nebulizer [Aeroneb Go Nebulizer] 1 each MC 4X/DAY 09/15/17 Pantoprazole Sodium [Protonix] 40 mg PO DAILY 09/15/17 Tamsulosin HCl [Flomax] 0.4 mg PO DAILY@1730 09/15/17 hydrALAZINE [Apresoline] 25 mg PO TID 09/15/17 Sodium Bicarbonate 650 mg PO TID 30 Days #90 tab 09/19/17 Primary Care Physician: Caesar Chavez DO [Primary Care Provider] - Please follow up with your Primary Care Physician in: 5-10 days Test Results: Test results from this visit will be discussed in further detail at your follow- up appointment, if applicable. Please Follow Up With: Rupert Ku MD When: 3 to 7 days Please Follow Up With: Daysi Magana DO When: 5 to 10 days
--- NOTE | 2017-09-19 10:46 | PCM.DC.SUM ---
Discharge Date and Diagnosis - Problem List Patient Problems: Active and Suspected Problems (Last Updated 09/16/17 @ 10:30 by Kelechi Adler MD) Hyperkalemia (Acute) Date of Admission: 09/15/17 Date of Discharge: 09/19/17 - Primary Discharge Diagnosis Active and Suspected Problems (Last Updated 09/16/17 @ 10:30 by Kelechi Adler MD) Hyperkalemia (Acute) NICK on CKD stage IV Colonic mass. - Secondary Discharge Diagnosis Chronic Problems (Last Updated 09/16/17 @ 10:30 by Kelechi Adler MD) Heme + stool (Chronic) Anemia of chronic renal failure (Chronic) H/O pneumonectomy (Chronic) Right due to benign tumor Peripheral vascular disease (Chronic) COPD (chronic obstructive pulmonary disease) (Chronic) Radiculopathy affecting upper extremity (Chronic) Iron deficiency anemia (Chronic) Increased PTH level (Chronic) Low vitamin D level (Chronic) Paroxysmal atrial fibrillation (Chronic) Chronic renal failure, stage 4 (severe) (Chronic) Nocturnal hypoxia (Chronic) Noncompliance with CPAP treatment (Chronic) LADARIUS (obstructive sleep apnea) (Chronic) Gout (Chronic) History of tobacco abuse (Chronic) quit in April 2017 Hx of CABG (Chronic) x3 2003 Coronary artery disease (Chronic) has had 3 stents.....the last stent he thinks in 2008 Hypertension (Chronic) Diabetes mellitus type 2 in obese (Chronic) Non-STEMI (non-ST elevated myocardial infarction) (Chronic) Hospital Course and Treatment Imaging Results: 09/19/17 05:30 Chest PA and Lateral [RAD] Urgent Impressions KUB X-Ray 09/18/17 17:54 IMPRESSION: Inflammation overlying the diverticulum of the distal ascending colon and sigmoid colon. This suggests multifocal diverticulitis. 17mm linear foreign body in the ascending colon. 11mm linear foreign body in the distal transverse colon. Other findings as above. Electronically Signed: Zaire Hunter MD at 19:26 EDT , Service support , Abdomen/Pelvis CT 09/18/17 17:55 IMPRESSION: Inflammation overlying the diverticulum of the distal ascending colon and sigmoid colon. This suggests multifocal diverticulitis. 17mm linear foreign body in the ascending colon. 11mm linear foreign body in the distal transverse colon. Other findings as above. Electronically Signed: Zaire Hunter MD at 19:26 EDT , Service support , Abdomen X-Ray 09/18/17 23:11 IMPRESSION: Normal x-ray examination of the abdomen and pelvis. Electronically Signed: Hugo Pizarro MD at 0:14 EDT Tel , Service support , Chest X-Ray 09/19/17 05:30 IMPRESSION: Stable examination. Electronically Signed: Herbert Carroll MD at 9:24 EDT Tel [phone], Service support , 09/18/17 17:54 KUB [Abdomen Single View] [RAD] Urgent 09/18/17 17:55 CT Abd [Abdomen/Pelvis without Cont] [CT] Urgent 09/18/17 23:11 XRAY Abdomen [Abd Inc Decub and/or Erect] [RAD] Urgent 09/19/17 05:30 Chest PA and Lateral [RAD] Urgent 09/15/17 13:55 Stool Stool Occult Blood (ИВАН) - Final Occult Blood Positive Laboratory Results 09/18/17 09/18/17 09/19/17 Range/Units 16:09 21:48 06:50 POC Glucose 129 H 134 H 155 H (70-110) mg/dL General surgery Procedures: Colonoscopy, - - Endoscopy Summary of Care Provided: The patient is a 61 year old M with a significant medical history of hypertension, diabetes mellitus 2, CAD, coronary stents, CKD stage IV, BPH, partial right pneumonectomy, gout anemia and COPD who was admitted through emergency department because of an outpatient potassium level of 6.8. His repeat potassium at emergency department was 7.0. Patient was admitted because of hyperkalemia. Also he had non-anion gap metabolic acidosis. Patient receive appropriate treatments for his hyperkalemia with Kayexalate, insulin and IV sodium bicarbonate. Because of NICK on CKD patient was appropriately hydrated. And because of non-anion gap metabolic acidosis the patient was also restarted on p.o. sodium bicarbonate that he had run out of while at home.. Because patient complained of diarrhea and anemia an occult blood test was done which returned positive. General surgery was consulted. An upper endoscopy showed some mild gastritis. And a colonoscopy showed a mass in his hepatic flexure which was biopsied.. Multiple polyps in his colon were found and he had a polypectomy for some of these polyps. Patient and General Surgery agreed on an office visit and a possible referral to see a specialist in [facility]. During patient's visit, aspirin and Plavix was discontinued because of the positive fecal occult blood test. At the time of discharge a shared decision was made to continue patient on aspirin but to stop his Plavix until a decision is made on his colonic mass and after further discussion with his PCP. He was also instructed to follow up with cardiology because of his history of CAD and use of the dual antiplatelet therapy On the day of discharge a comprehensive physical examination was done. Heart sounds S1, S2 present with no murmur, gallop or rubs. His lungs were clear to diminished on auscultation. His belly was nontender and nondistended and bowel sounds were present. He had no edema or cyanosis in his extremity. And is his pulses were normal bilaterally. [] Discharge Activity: Return to Normal Activity Call your doctor if you observe: Fever of 101 or Higher, Uncontrolled pain Home Medications: Medications to take at Discharge Albuterol Inhaler [Ventolin Hfa] 1 - 2 puff INHALATION Q6H PRN PRN 05/14/17 Aspirin 81 mg PO DAILY 05/14/17 Insulin Aspart [Novolog Flexpen] 45 units SC TIDCM 05/14/17 Insulin Degludec [Tresiba Flextouch U-100] 60 unit SC BID 05/14/17 Nitroglycerin [Nitrostat] 0.4 mg SUBLINGUAL Q5M PRN 05/14/17 Oxycodone [Oxyir] 5 mg PO BID PRN PRN 05/14/17 Simvastatin 80 mg PO QHS 05/14/17 Oxygen, Home [Home Oxygen] 2 - 3 lpm NASAL UD #1 unit 05/18/17 Albuterol Aerosols [Ventolin Aerosols] 2.5 mg INHALATION Q4H PRN PRN 09/15/17 Allopurinol [Zyloprim] 300 mg PO DAILYCM 09/15/17 Cilostazol 100 mg PO BID 09/15/17 Colchicine 0.6 mg PO TID PRN 09/15/17 Ergocalciferol [Vitamin D] 50,000 unit PO Q7D 09/15/17 Ferrous Sulfate 325 mg PO DAILY 09/15/17 Finasteride [Proscar] 5 mg PO DAILY 09/15/17 Isosorbide Mononitrate [Imdur] 30 mg PO DAILY 09/15/17 Metoprolol(XL)Succ [Toprol Xl (Beta Vanesa)] 50 mg PO DAILY 09/15/17 Nebulizer [Aeroneb Go Nebulizer] 1 each MC 4X/DAY 09/15/17 Pantoprazole Sodium [Protonix] 40 mg PO DAILY 09/15/17 Tamsulosin HCl [Flomax] 0.4 mg PO DAILY@1730 09/15/17 hydrALAZINE [Apresoline] 25 mg PO TID 09/15/17 Sodium Bicarbonate 650 mg PO TID 30 Days #90 tab 09/19/17 Following Prescrptions Were Given to Patient: Sodium Bicarbonate 650 mg PO TID 30 Days #90 tab Primary Care Physician: Caesar Chavez DO [Primary Care Provider] - Please follow up with your Primary Care Physician in: 5-10 days Please Follow Up With: Rupert Ku MD When: 3 to 7 days Please Follow Up With: Daysi Magana DO When: 5 to 10 days Disposition: Home Minutes spent on discharge:: 25 Patient Condition:: Good Medical Necessity - Tobacco Use Smoking Status: Former smoker Tobacco Use: Non-smoker Meaningful Use Info Meaningful Use Diagnoses (Choose all that apply): None applicable Code Visit Inpatient E&M: 14336 Disch Hosp
--- NOTE | 2017-09-19 11:51 | PCM.PN.REN ---
Patient Problems: Active and Suspected Problems (Last Updated 09/16/17 @ 10:30 by Kelechi Adler MD) Hyperkalemia (Acute) Subjective: results of colonoscopy reviewed. Renal fxn improving. He is to continue with bicarb tablets on discharge and hold on ACEi for now until f/u in office with me next week. - Physical Exam General: Alert, Oriented x3, Cooperative, No apparent distress Lungs: Clear to auscultation Cardiovascular: Regular rate Abdomen: Bowel Sounds Present, Soft, Non Tender, Non-Distended, Obese Extremities: No edema Vital Signs Temp Pulse Resp BP Pulse Ox 98.6 F 101 H 18 114/68 96 09/19/17 09:38 09/19/17 09:40 09/19/17 09:38 09/19/17 09:38 09/19/17 09:38 Oxygen Delivery Method Room Air Weight: 106.7 kg Body Mass Index (BMI) 31.0 Intake and Output for Last 24 Hours 09/17/17 09/18/17 09/19/17 23:59 23:59 23:59 Intake Total 3069 / 3069 2933 / 2933 616 / 616 Output Total 1900 / 1900 Balance 1169 / 1169 2933 / 2933 616 / 616 Laboratory Tests Past 24 Hrs 09/19/17 05:10 Carcinoembryonic Ag Pending POC Glucose 09/19/17 09/18/17 09/18/17 06:50 21:48 16:09 POC Glucose 155 H 134 H 129 H Medical Necessity - Tobacco Use Smoking Status: Former smoker Tobacco Use: Non-smoker Assessment/Plan All Active Problems (Last Updated 09/16/17 @ 10:30 by Kelechi Adler MD) Hyperkalemia (Acute) Acute renal failure superimposed on stage 4 chronic kidney disease (Acute) Metabolic acidosis (Acute) Benign neoplasm of right lung (Resolved) Acute exacerbation of chronic obstructive pulmonary disease (COPD) (Resolved) Acute respiratory failure with hypoxemia (Resolved) Influenza B (Resolved) Lower GI bleed (Resolved) Severe sepsis (Resolved) Streptococcal pneumonia (Resolved) Urinary retention due to benign prostatic hyperplasia (Resolved) 1. NICK on CKD stage 4 likely due to prerenal event, diarrhea past 2-3 weeks. Creatinine improved to 2.44, baseline. i 2. Acute hyperkalemia improved. Off lisinopril 3. Metabolic acidosis due to renal failure, diarrhea. continue sodium bicarb tid a 4. 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 consider low dose ARB due to hx hyperkalemia on ACEI 5. HTN stable 6. Anemia hgb stable follow up with me on 09/23.
--- NOTE | 2017-09-20 03:45 | PCM.PN.SRG ---
Subjective: Missed note for September 19, 2017 no complaints - Physical Exam General: Alert, Oriented x3 Lungs: Clear to auscultation, Normal air movement Cardiovascular: Irregular Rate Abdomen: Bowel Sounds Present, Soft, Non Tender Vital Signs Temp Pulse Resp BP Pulse Ox 98.6 F 101 H 18 114/68 96 09/19/17 09:38 09/19/17 09:40 09/19/17 09:38 09/19/17 09:38 09/19/17 09:38 Oxygen Delivery Method Room Air Weight: 106.7 kg Body Mass Index (BMI) 31.0 Intake and Output for Last 24 Hours 09/18/17 09/19/17 09/20/17 23:59 23:59 23:59 Intake Total 2933 / 2933 616 / 616 Balance 2933 / 2933 616 / 616 Laboratory Tests Past 24 Hrs 09/19/17 05:10 Carcinoembryonic Ag Pending POC Glucose 09/19/17 06:50 POC Glucose 155 H Medical Necessity - Tobacco Use Smoking Status: Former smoker Tobacco Use: Non-smoker Assessment/Plan All Active Problems (Last Updated 09/16/17 @ 10:30 by Kelechi Adler MD) Hyperkalemia (Acute) Acute renal failure superimposed on stage 4 chronic kidney disease (Acute) Metabolic acidosis (Acute) Acute exacerbation of chronic obstructive pulmonary disease (COPD) (Resolved) Acute respiratory failure with hypoxemia (Resolved) Benign neoplasm of right lung (Resolved) Influenza B (Resolved) Lower GI bleed (Resolved) Severe sepsis (Resolved) Streptococcal pneumonia (Resolved) Urinary retention due to benign prostatic hyperplasia (Resolved) chronic anemia-heme positive stools upper and lower endoscopy demonstrated mild gastritis in the upper endoscopy. Lower endoscopy demonstrated too numerous to count polyps throughout the colon and a hepatic flexure mass consistent with the invasive cancer. The hepatic flexure mass was marked with Sushma ink and a clip placed. Hepatic flexure. An additional clip was placed at 65 cm, demonstrating the location where proximal and distal to this clip. Polyps were obtained for sampling. the patient underwent CT scan without contrast due to his renal failure. This demonstrated no obvious liver abnormalities and no other significant pathologic changes. I anticipate he will need a subtotal colectomy. This combined with his history of lung resection, chronic obstructive pulmonary disease, coronary artery disease and renal failure. Would plan for referral to tertiary care center. He is received 2 units packed red cell transfusion. his hemoglobin responded appropriately after transfusion and has been stable overnight.
[2017-09-22 10:43] LABS: Carcinoembryonic Antigen 2.5 ng/mL (0.0-4.7)
--- NOTE | 2017-09-25 16:43 | CASEMGMT ---
DEVEN SAAVEDRA Discharge Follow-up Phone Call: RAE: Sara Strata: 4 Call Date: 09/25/2017 Discharge Date: 09/19/2017 Time of Call: 1640 Duration: 5 minutes ~ Admitting Diagnosis: Hyperkalemia, NICK on CKD stage 4 DEVEN SAAVEDRA spoke with pt post-discharge. Pt reports feeling well since discharge with good energy. States he is taking it easy despite having energy to do things. Pt has followed-up with his PCP Dr. Chavez who provided validation to the patient that the care plan is appropriate. Pt followed-up with Dr. Magana who was able to provide further education on a low K diet which he has been conscientious about following. Pt is scheduled to follow-up with Dr. Ku tomorrow 09/26 and is also scheduled for additional testing at [facility] on 10/03. Pt was able to fill his prescriptions without difficulty. Report the eye gtts he received have been effective in relieving his blurry vision. Pt denies any questions regarding his discharge instructions or concerns since being discharged. Cecilia Hwang RN
== END 2017-09-19 12:09 | disposition home or self-care (01) | DRG 683 ==
LOC: ED 14:05 → PCU 14:09
PROVIDERS: Internal Medicine Nephrology; Student in an Organized Health Care Education/Training Program; Surgery; Admitting Provider Internal Medicine; Emergency Provider Emergency Medicine; Family Provider Family Medicine; PCP Family Medicine; Visit Provider Hospitalist
PROC: 0DJD8ZZ Inspection of Lower Intestinal Tract, Via Natural or Artificial Opening Endoscopic (ICD-10-PCS; CPT 45378; principal; 2017-09-18 16:25)
DX: N17.9 Acute kidney failure, unspecified (principal); E87.2 Acidosis; C18.3 Malignant neoplasm of hepatic flexure; E87.5 Hyperkalemia; I25.10 Atherosclerotic heart disease of native coronary artery without angina pectoris; E78.5 Hyperlipidemia, unspecified; E11.22 Type 2 diabetes mellitus with diabetic chronic kidney disease; N18.4 Chronic kidney disease, stage 4 (severe); N40.0 Benign prostatic hyperplasia without lower urinary tract symptoms; I12.9 Hypertensive chronic kidney disease with stage 1 through stage 4 chronic kidney disease, or unspecified chronic kidney disease; J44.9 Chronic obstructive pulmonary disease, unspecified; G47.33 Obstructive sleep apnea (adult) (pediatric); K29.70 Gastritis, unspecified, without bleeding; K63.5 Polyp of colon; D50.9 Iron deficiency anemia, unspecified; D63.1 Anemia in chronic kidney disease; Z79.4 Long term (current) use of insulin; Z87.891 Personal history of nicotine dependence; Z79.899 Other long term (current) drug therapy; Z95.1 Presence of aortocoronary bypass graft; I25.2 Old myocardial infarction; Z95.5 Presence of coronary angioplasty implant and graft; Z90.2 Acquired absence of lung [part of]
CPT/HCPCS: 36415; 71046; 74018; 74019; 74176; 80048; 80053; 80061; 80069; 82274; 82378; 82570; 82728; 82803; 82962; 83036; 83540; 83550; 83735; 84100; 84156; 84300; 85014; 85018; 85025; 85027; 86850; 86900; 86920; 86922; 88305; 88341; 88342; 93005; 94640; 99285; J7030; J7040; P9016; A4216; A4648; J3490; J7799

== ENCOUNTER → 2017-09-23 11:02 | Outpatient (CLI) | payer MEDICARE, SELFPAY ==
[2017-09-23 13:27] LABS: Absolute Lymphocyte Count 1.48 X10^3/ul (0.83-4.51); Absolute Neutrophil Count 5.3 X10^3/uL (2.0-7.7); Basophil# 0.03 X10^3/uL; Basophil% 0.4 % (0-1); Eosinophil# 0.45 X10^3/uL; Eosinophils% 5.7 % (0-5); Hematocrit 32.3 % (40-54); Hemoglobin 9.8 g/dl (13.0-16.5); Lymphocyte # 1.48 X10^3/ul (4.0); Lymphocyte % 18.9 % (19-41); Mean Corp Hgb Conc 30.3 g/gl (32-36); Mean Corpuscular Hgb 25.7 pg (27.0-32.0); Mean Corpuscular Volume 84.6 fL (80-94); Mean Platelet Vol. 12.2 fl (6.2-12.0); Monocyte# 0.58 X10^3/uL; Monocyte% 7.4 % (0-10); Neutrophil # 5.28 X10^3/uL (2.7-7.7); Neutrophil % 67.5 % (47-70); Platelet Count 264 K/mm3 (150-450); RBC Distribution Width SD 46.5 fl (35.1-43.9); Red Blood Count 3.82 M/mm3 (4.6-6.2); White Blood Count 7.8 K/mm3 (4.4-11.0)
[2017-09-23 13:30] LABS: POSITIVE COUNT NO; POSITIVE DIFFERENTIAL NO; POSITIVE MORPHOLOGY NO
[2017-09-23 13:50] LABS: Albumin, Serum 3.6 g/dL (3.2-5.0); BUN 52 mg/dL (7-18); BUN/Creat Ratio 21.2 RATIO (10-20); Calcium,Total 9.3 mg/dL (8.5-10.1); Chloride 110 mmol/L (98-107); Creatinine, Serum 2.45 mg/dL (0.70-1.30); EST Glomerular Filtration Rate 29 mL/min (>60); Est Glom Filt Rate - Afr Amer 35 mL/min (>60); Glucose 135 mg/dL (74-106); Phosphorus 3.3 mg/dL (2.5-4.9); Potassium 4.4 mmol/L (3.5-5.1); Sodium Level 141 mmol/L (136-145)
== END ==
PROVIDERS: Family Provider Family Medicine; PCP Family Medicine; Visit Provider Internal Medicine Nephrology
DX: D64.9 Anemia, unspecified (principal); N18.3 Chronic kidney disease, stage 3 (moderate)
CPT/HCPCS: 36415; 80069; 85025

== ENCOUNTER → 2017-11-12 09:35 | Outpatient (CLI) | payer MEDICARE, SELFPAY ==
[2017-11-12 10:31] LABS: Hematocrit 36.4 % (40-54); Hemoglobin 11.3 g/dl (13.0-16.5); Mean Corpuscular Hgb 26.1 pg (27.0-32.0); Mean Corpuscular Volume 84.1 fL (80-94); Mean Platelet Vol. 11.7 fl (6.2-12.0); Platelet Count 259 K/mm3 (150-450); RBC Distribution Width CV 14.7 % (11.6-14.6); RBC Distribution Width SD 45.6 fl (35.1-43.9); Red Blood Count 4.33 M/mm3 (4.6-6.2); White Blood Count 9.2 K/mm3 (4.4-11.0)
[2017-11-12 10:36] LABS: Scan Indicated on CBC? Y/N NO
[2017-11-12 10:51] LABS: Albumin, Serum 3.5 g/dL (3.2-5.0); BUN 31 mg/dL (7-18); BUN/Creat Ratio 13.5 RATIO (10-20); Calcium,Total 9.5 mg/dL (8.5-10.1); Chloride 109 mmol/L (98-107); Creatinine, Serum 2.29 mg/dL (0.70-1.30); EST Glomerular Filtration Rate 31 mL/min (>60); Est Glom Filt Rate - Afr Amer 37 mL/min (>60); Glucose 169 mg/dL (74-106); Phosphorus 2.9 mg/dL (2.5-4.9); Potassium 3.8 mmol/L (3.5-5.1); Sodium Level 142 mmol/L (136-145)
[2017-11-12 11:06] LABS: Protein:Creat Ratio 1926 mg/g CRE (0-200)
== END ==
PROVIDERS: Family Provider Family Medicine; PCP Family Medicine; Visit Provider Internal Medicine Nephrology
DX: E11.22 Type 2 diabetes mellitus with diabetic chronic kidney disease (principal); N18.9 Chronic kidney disease, unspecified
CPT/HCPCS: 36415; 80069; 82570; 84156; 85027

== ENCOUNTER → 2018-02-16 08:55 | Outpatient (CLI) | payer MEDICARE, SELFPAY ==
[2018-02-16 09:33] LABS: Hematocrit 35.9 % (40-54); Hemoglobin 11.5 g/dl (13.0-16.5); Mean Corpuscular Hgb 27.3 pg (27.0-32.0); Mean Corpuscular Volume 85.3 fL (80-94); Mean Platelet Vol. 12.5 fl (6.2-12.0); Platelet Count 227 K/mm3 (150-450); RBC Distribution Width CV 16.8 % (11.6-14.6); Red Blood Count 4.21 M/mm3 (4.6-6.2); White Blood Count 11.7 K/mm3 (4.4-11.0)
[2018-02-16 09:35] LABS: Scan Indicated on CBC? Y/N NO
[2018-02-16 09:47] LABS: Protein, Urine (Random) 118.7 mg/dL (<11.9); Protein:Creat Ratio 1187 mg/g CRE (0-200)
[2018-02-16 10:00] LABS: BUN 45 mg/dL (7-18); Glucose 304 mg/dL (74-106)
[2018-02-16 10:01] LABS: Albumin, Serum 3.4 g/dL (3.2-5.0); BUN/Creat Ratio 17.3 RATIO (10-20); Calcium,Total 8.8 mg/dL (8.5-10.1); Chloride 109 mmol/L (98-107); EST Glomerular Filtration Rate 27 mL/min (>60); Est Glom Filt Rate - Afr Amer 32 mL/min (>60); Phosphorus 3.3 mg/dL (2.5-4.9); Potassium 4.6 mmol/L (3.5-5.1); Sodium Level 138 mmol/L (136-145)
[2018-02-16 10:08] LABS: PTHIN 50.8 pg/mL (18.4-80.1); Vitamin D,25 Hydroxy 27.9 ng/mL (29.95-100.01)
--- OUTSIDE RECORDS SUMMARY | 2018-04-11 11:07 | XMS RPT_ITS ---
:1955 Author Organization OHIP Support Name Relationship Address Phone VITA FLORES Unavailable Unavailable + D Unavailable Unavailable Unavailable HEATHER, JOANNA Unavailable [address] + [place] [address] SANDRA, VITA Unavailable Unavailable + D Unavailable Unavailable Unavailable HEATHER, JOANNA Unavailable [address] + [place] [address] SANDRA, VITA Unavailable [address] + [place] [address] D Unavailable Unavailable Unavailable HEATHER, JOANNA Unavailable [address] + [place] [address] SANDRA, VITA Unavailable Unavailable + [place] [address] D Unavailable Unavailable Unavailable HEATHER, JOANNA Unavailable [address] + [place] [address] SANDRA, VITA Unavailable [address] + [place] [address] D Unavailable Unavailable Unavailable HEATHER, JOANNA Unavailable [address] + [place] [address] SANDRA, VITA Unavailable Unavailable + [place] [address] D Unavailable Unavailable Unavailable HEATHER, JOANNA Unavailable [address] + [place] [address] SANDRA, VITA Unavailable Unavailable + [place] [address] D Unavailable Unavailable Unavailable HEATHER, JOANNA Unavailable [address] + [place] [address] SANDRA, VITA Unavailable Unavailable + [place] [address] D Unavailable Unavailable Unavailable HEATHER, JOANNA Unavailable [address] + [place] [address] SANDRA, VITA Unavailable Unavailable + [place] [address] D Unavailable Unavailable Unavailable HEATHER, JOANNA Unavailable [address] + [place] [address] SANDRA, VITA Unavailable Unavailable + [place] [address] D Unavailable Unavailable Unavailable HEATHER, JOANNA Unavailable [address] + [place] [address] SANDRA, VITA Unavailable [address] + [place] [address] D Unavailable Unavailable Unavailable HEATHER, JOANNA Unavailable [address] + [place] [address] SANDRA, VITA Unavailable Unavailable + [place] [address] D Unavailable Unavailable Unavailable HEATHER, JOANNA Unavailable [address] + [place] [address] SANDRA, VITA Unavailable Unavailable + [place] [address] D Unavailable Unavailable Unavailable HEATHER, JOANNA Unavailable [address] + [place] [address] Sandra, Vita Unavailable . + [place] [address] D Unavailable Unavailable Unavailable HEATHER, JOANNA Unavailable [address] + [place] [address] Sandra, Vita Unavailable . + [place] [address] D Unavailable Unavailable Unavailable HEATHER, JOANNA Unavailable [address] + [place] [address] Sandra, Vita Unavailable Unavailable + [place] [address] D Unavailable Unavailable Unavailable HEATHER, JOANNA Unavailable [address] + [place] [address] Sandra, Vita Unavailable . + [place] [address] D Unavailable Unavailable Unavailable HEATHER, JOANNA Unavailable [address] + [place] [address] Sandra, Vita Unavailable . + [place] [address] D Unavailable Unavailable Unavailable HEATHER, JOANNA Unavailable [address] + [place] [address] Sandra, Vita Unavailable . + [place] [address] D Unavailable Unavailable Unavailable HEATHER, JOANNA Unavailable [address] + [place] [address] D Unavailable Unavailable Unavailable HEATHER, JOANNA Unavailable [address] + [place] [address] D Unavailable Unavailable Unavailable HEATHER, JOANNA Unavailable [address] + [place] [address] D Unavailable Unavailable Unavailable HEATHER, JOANNA Unavailable [address] + [place] [address] D Unavailable Unavailable Unavailable HEATHER, JOANNA Unavailable [address] + [place] [address] D Unavailable Unavailable Unavailable HEATHER, JOANNA Unavailable [address] + [place] [address] D Unavailable Unavailable Unavailable HEATHER, JOANNA Unavailable [address] + [place] [address] D Unavailable Unavailable Unavailable HEATHER, JOANNA Unavailable [address] + [place] [address] D Unavailable Unavailable Unavailable HEATHER, JOANNA Unavailable [address] + [place] [address] D Unavailable Unavailable Unavailable HEATHER, JOANNA Unavailable [address] + [place] [address] D Unavailable Unavailable Unavailable HEATHER, JOANNA Unavailable [address] + [place] [address] D Unavailable Unavailable Unavailable HEATHER, JOANNA Unavailable [address] + [place] [address] D Unavailable Unavailable Unavailable HEATHER, JOANNA Unavailable [address] + [place] [address] D Unavailable Unavailable Unavailable HEATHER, JOANNA Unavailable [address] + [place] [address] D Unavailable Unavailable Unavailable HEATHER, JOANNA Unavailable [address] + [place] [address] D Unavailable Unavailable Unavailable HEATHER, JOANNA Unavailable [address] + [place] [address] Vita Flores Unavailable . + [place] [address] D Unavailable Unavailable Unavailable HEATHER, JOANNA Unavailable [address] + [place] [address] D Unavailable Unavailable Unavailable HEATHER, JOANNA Unavailable [address] + [place] [address] Care Team Providers Name Role Phone KATHY DO, CAESAR D Attending Unavailable KATHY DO, CAESAR D Primary Care Unavailable KATHY DO, CAESAR D Attending Unavailable KATHY DO, CAESAR D Primary Care Unavailable KATHY DO, CAESAR D Attending Unavailable KATHY DO, CAESAR D Primary Care Unavailable KATHY DO, CAESAR D Attending Unavailable KATHY DO, CAESAR D Primary Care Unavailable KATHY DO, CAESAR D Attending Unavailable KATHY DO, CAESAR D Primary Care Unavailable KATHY DO, CAESAR D Attending Unavailable KATHY DO, CAESAR D Primary Care Unavailable KATHY DO, CEASAR D Attending Unavailable KATHY DO, CAESAR D Primary Care Unavailable KATHY DO, CAESAR D Attending Unavailable KATHY DO, CAESAR D Primary Care Unavailable CHAPARRO KU Attending Unavailable LUIS DUNN R Attending Unavailable CHAPARRO KU Referring Unavailable DUNN, LUIS R Referring Unavailable PAYTON EVANS Referring Unavailable DUNN, LUIS R Referring Unavailable FRANCISYAQUELIN Attending Unavailable DUNN, LUIS R Referring Unavailable DUNN, LUIS R Referring Unavailable DUNN, LUIS R Referring Unavailable DUNN, LUIS R Referring Unavailable DUNN, LUIS R Referring Unavailable DUNN, LUIS R Referring Unavailable FRANCIS, YAQUELIN Referring Unavailable DUNN, LUIS R Referring Unavailable DUNN, LUIS R Admitting Unavailable DUNN, LUIS R Attending Unavailable DUNN LUIS R Attending Unavailable KATHY CAESAR D Referring Unavailable SANCHEZ MONTILLA Attending Unavailable CHAPARRO KU Referring Unavailable ЮЛИЯ BERMUDEZ (KNURLING MACHINE OPERATOR) Attending Unavailable SANCHEZ MONTILLA Referring Unavailable ЮЛИЯ BERMUDEZ (KNURLING MACHINE OPERATOR) Referring Unavailable ЮЛИЯ BERMUDEZ (KNURLING MACHINE OPERATOR) Attending Unavailable SANCHEZ MONTILLA Referring Unavailable Chindeu Shafer Attending Unavailable Kathy Caesar Primary Care Unavailable Kathy Caesar Primary Care Unavailable Doni, Jos Admitting Unavailable Sementi, Alena Attending Unavailable Nahun Barlow D.O. Consulting Unavailable Leahy, Jensen Consulting Unavailable Chino, Daysi Consulting Unavailable [facility], Jos Admitting Unavailable [facility], Jos Attending Unavailable [facility] Unavailable Sementi, Alena Consulting Unavailable [facility], Jos Admitting Unavailable Jensen Leahy Attending Unavailable [facility] Unavailable Nahun Barlow D.O. Consulting Unavailable Leahy, Jensen Consulting Unavailable Chino, Daysi Consulting Unavailable Sementi, Alena Consulting Unavailable [facility], Jos Admitting Unavailable Jensen Leahy Attending Unavailable [facility] Unavailable Nahun Barlow D.O. Consulting Unavailable Leahy, Jensen Consulting Unavailable Chino, Daysi Consulting Unavailable Sementi, Alena Consulting Unavailable [facility], Jos Admitting Unavailable Nahun Barlow D.O. Attending Unavailable [facility] Unavailable Nahun Barlow D.O. Consulting Unavailable Leahy, Jensen Consulting Unavailable Chino, Daysi Consulting Unavailable Sementi, Alena Consulting Unavailable [facility], [facility] Admitting Unavailable Nahun Barlow D.O. Attending Unavailable [facility] Unavailable Nahun Barlow D.O. Consulting Unavailable Armond, Jensen Consulting Unavailable Chino, Daysi Consulting Unavailable Sementi, Alena Consulting Unavailable [facility], Jos Admitting Unavailable Jensen Leahy Attending Unavailable [facility] Unavailable Nahun Barlow D.O. Consulting Unavailable Armond, Jensen Consulting Unavailable Chino, Daysi Consulting Unavailable Sementi, Alena Consulting Unavailable [facility], Jos Admitting Unavailable Coby NeriC Attending Unavailable [facility] Unavailable Nahun Barlow D.O. Consulting Unavailable Leahy, Jensen Consulting Unavailable Chino, Daysi Consulting Unavailable Sementi, Alena Consulting Unavailable [facility], Jos Admitting Unavailable Nahun Barlow D.O. Attending Unavailable [facility] Unavailable Nahun Barlow D.O. Consulting Unavailable Leahy, Jensen Consulting Unavailable Chino, Daysi Consulting Unavailable Sementi, Alena Consulting Unavailable [facility], Jos Admitting Unavailable Sementi, Alena Attending Unavailable [facility] Unavailable Nahun Barlow D.O. Consulting Unavailable Leahy, Jensen Consulting Unavailable Chino, Daysi Consulting Unavailable Sementi, Alena Consulting Unavailable [facility], Jos Admitting Unavailable Sementi, Alena Attending Unavailable [facility] Primary Care Unavailable Yvette Jaimes.O. Consulting Unavailable Leahy, Jensen Consulting Unavailable Chino, Daysi Consulting Unavailable Sementi, Alena Consulting Unavailable [facility], Jos Admitting Unavailable Yvette Jaimes.O. Attending Unavailable [facility] Primary Care Unavailable Yvette Jaimes.O. Consulting Unavailable Leahy, Jensen Consulting Unavailable Chino, Daysi Consulting Unavailable Sementi, Alena Consulting Unavailable [facility], Jos Admitting Unavailable Yvette Jaimes.O. Attending Unavailable [facility] Primary Care Unavailable Nahun [place]low, D.O. Consulting Unavailable Leahy, Jensen Consulting Unavailable Hcino, Daysi Consulting Unavailable Sementi, Alena Consulting Unavailable [facility], Jos Admitting Unavailable Sementi, Alena Attending Unavailable [facility] Primary Care Unavailable Yvette Jaimes.O. Consulting Unavailable Leahy, Jensen Consulting Unavailable Chino, Daysi Consulting Unavailable Sementi, Alena Consulting Unavailable [facility], Jos Admitting Unavailable Sementi, Alena Attending Unavailable [facility] Primary Care Unavailable Yvette Jaimes.O. Consulting Unavailable Leahy, Jensen Consulting Unavailable Chino, Daysi Consulting Unavailable Sementi, Alena Consulting Unavailable Navarrete, Loan Attending Unavailable [facility] Caesar Referring Unavailable [facility] Primary Care Unavailable Chino, Daysi Attending Unavailable [facility] Primary Care Unavailable Danis Loza Attending Unavailable Sementi, Alena Referring Unavailable Navarrete, Loan Attending Unavailable Navarrete, Loan Referring Unavailable [facility] Primary Care Unavailable Navarrete, Loan Attending Unavailable Navarrete, Loan Referring Unavailable [facility] Primary Care Unavailable Navarrete, Loan Attending Unavailable [facility] Caesar Referring Unavailable Nahun Brown, D.O. Attending Unavailable Navarrete, Olan Referring Unavailable Nahun BrownYvtete.O. Attending Unavailable [facility] Caesar Referring Unavailable Nahun Brown D.O. Attending Unavailable [facility] Primary Care Unavailable Chino, Daysi Attending Unavailable Chino, Daysi Referring Unavailable [facility] Primary Care Unavailable [facility] Primary Care Unavailable Sementi, Alena Admitting Unavailable Chino, Daysi Consulting Unavailable Kelechi Adler Attending Unavailable Chaparro Ku Consulting Unavailable Sementi, Alena Admitting Unavailable Sementi, Alena Attending Unavailable [facility] Primary Care Unavailable Chino, Daysi Consulting Unavailable Sementi, Alena Consulting Unavailable Chino, Daysi Attending Unavailable Caesar Chavez Primary Care Unavailable Kelechi Adler Attending Unavailable Angeles Howe Attending Unavailable Loan Navarrete Attending Unavailable Caesar Chavez Referring Unavailable Wellington Bonilla Attending Unavailable Nahun Barlow D.O. Referring Unavailable Danis Loza Attending Unavailable Alena Marcum Referring Unavailable Daysi Magana Attending Unavailable Daysi Magana Referring Unavailable Caesar Chavez Primary Care Unavailable Daysi Magana Attending Unavailable Caesar Chavez Primary Care Unavailable Daysi Magana Referring Unavailable PROBLEMS PROBLEMS DATE TYPE CONDITION / CODE ATTENDING STATUS SOURCE Active Malignant neoplasm of NA [facility] 8 hepatic flexure / Clinic Main C18.3(ICD-10) [place] Repository Active Malignant neoplasm of LUIS DUNN [facility] 8 colon, unspecified / R Clinic Main C18.9(ICD-10) [place] Repository Active Atherosclerotic heart [facility] 8 disease of [place] [facility] coronary artery [place] without angina Repository pectoris / I25.10(ICD-10) Active Encounter for other [facility] 8 preprocedural Clinic Main examination / [place] Z01.818(ICD-10) Repository Active Anemia, unspecified / NA Active [place] 8 D64.9(ICD-10) Clinic Main [place] Repository Active Obesity, unspecified / NA [facility] 8 E66.9(ICD-10) Clinic Main [place] 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 Clinic Main / Z79.01(ICD-10) [place] Repository Active Dependence on NA [facility] 8 supplemental oxygen / Clinic Main Z99.81(ICD-10) [place] Repository Active Benign neoplasm of NA [facility] 8 colon, unspecified / Clinic Main D12.6(ICD-10) [place] Repository Active Polyp of colon / NA Active [place] 8 K63.5(ICD-10) Clinic Main [place] Repository Unknown I25.10 - Dago, Dryden Active [place] 8 Atherosclerotic heart Community disease of [facility] coronary artery Repository without angina pectoris / I25.10(ICD-10) Unknown I25.2 - Old myocardial Dago, Dryden Active [place] 8 infarction / Community I25.2(ICD-10) Hospital Repository Unknown N18.3 - Chronic kidney Daysi Magana Active [place] 8 disease, stage 3 Community (moderate) / Hospital N18.3(ICD-10) Repository Unknown E11.22 - Type 2 Daysi Magana Active [place] 8 diabetes mellitus with Community diabetic chronic Hospital kidney disease / Repository E11.22(ICD-10) Unknown J44.9 - Chronic ChadWellington Active [place] 8 obstructive pulmonary Community disease, unspecified / Hospital J44.9(ICD-10) Repository Unknown G47.33 - Obstructive Nahun Barlow Active [place] 8 sleep apnea (adult) D.O. Community (pediatric) / Hospital G47.33(ICD-10) Repository Unknown F17.201 - Nicotine Nahun Barlow Active [place] 8 dependence, D.O. Community unspecified, in Hospital remission / Repository F17.201(ICD-10) Admitting Acute posthemorrhagic [facility], Active [place] 8 Diagnosis anemia / D62(ICD-10) [facility] Repository Unknown R94.31 - Abnormal Danis Loza Active [place] 8 electrocardiogram Community [ECG] [EKG] / Hospital R94.31(ICD-10) Repository Unknown I70.0 - Chinedu Shafer Active [place] 7 Atherosclerosis of A [facility] aorta / I70.0(ICD-10) Hospital Repository Unknown I77.1 - Stricture of Chinedu Shafer Active [place] 7 artery / I77.1(ICD-10) A [facility] Repository Unknown I70.213 - Chinedu Shafer Active [place] 7 Atherosclerosis of A [facility] [place] arteries of Hospital extremities with Repository intermittent claudication, bilateral legs / I70.213(ICD-10) PROCEDURES PROCEDURES No Procedure Records FoundRESULTS RESULTS CNOVSP Observed: 03/02/2018 Status: COMPLETED Source: [place] 10:30 AM [facility] REPOSITORY Visit (SP) Office ([place]) BARI ROMERO ([id number]) 1955 M Date Time Provider Department 03/02/18 10:30 AM ЮЛИЯ BERMUDEZ During your visit today, we recorded the following information about you: Temperature Pulse Blood pressure Weight 98 degrees 117/minute 105/63 102.5 kg Юлия Walton Aidan, DIMA.KNURLING MACHINE OPERATOR 03/02/2018 12:54 PM Signed Chief Complaint Patient presents with: Established Patient HPI: Bari Romero is a 62 year old male who presents here today for follow up colon cancer. Per Dr. Montilla's previous note: H/o CKD, CAD, HTN, PVD, COPD, LADARIUS, DM2 ? Patient underwent colonoscopy 09/2017 for JACQUELIN and heme positive stools. Was found to have multiple polyps and malignant-appearing mass at the hepatic flexure. ? Secondary to his comorbid conditions, was referred to [facility] where he underwent total colectomy on 10/17/2017. ? Pathology: 1. 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 - See comment and synoptic report. 2. Sigmoid, sigmoidectomy (B) - Diverticulitis. - One lymph node, negative for carcinoma (0/1). COMMENT About 35 polyps were noted grossly throughout the colon, but more numerous in the right and transverse colon. ?The vast majority of these polyps are serrated (85-90%), with sessile serrated polyps (a couple with focal low-grade dysplasia; at least 2 SSPs are >?1 cm) being twice as common as hyperplastic polyps. ?Further, it appears that the carcinoma also arises from a SSP with dysplasia. ?Tubular adenomas account for 10-15% of the polyps. 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 ?Given that a gene has not been identified in SPS patients, the pathologic findings/criteria are somewhat arbitrary, so please confirm clinically. SYNOPTIC REPORT OF [facility] PATHOLOGIC FINDINGS ABDOMINAL COLON WITH MASS AND POLYPS: ?COLON AND RECTUM:RESECTION, INCLUDING TRANSANAL DISK EXCISION OF RECTAL NEOPLASMS WORKSHEET: Procedure: ?Total abdominal colectomy Tumor Site: ?Right (ascending) colon Tumor Size: ?Greatest dimension: 6 cm ?Additional Dimension: 3 cm ?Additional Dimension: 2 cm Macroscopic Tumor Perforation: ?Not identified Histologic Type: ?Adenocarcinoma Histologic Grade: ?G2: Moderately differentiated Tumor Extension: ?Tumor invades through the muscularis propria into pericolorectal tissue Margins: ?All margins are uninvolved by invasive carcinoma, high-grade dysplasia, intramucosal adenocarcinoma, and adenoma ?Margins examined: proximal, distal, mesenteric Proximal Margin: ?Uninvolved by invasive carcinoma Distal Margin: ?Uninvolved by invasive carcinoma Circumferential Radial Margin: ?Uninvolved by invasive carcinoma Mesenteric Margin: ?Uninvolved by invasive carcinoma Treatment Effect: ?No known presurgical therapy Lymphovascular Invasion: ?Present ?Small vessel lymph-vascular invasion Perineural Invasion: ?Present Type of Polyp in which Invasive Carcinoma Arose: ?Sessile serrated adenoma/sessile serrated polyp Tumor Deposits: ?Not applicable Regional Lymph Nodes: ?Number of nodes involved: 2 ?Number of nodes examined: 26 ?? Pathologic Stage Classification (pTNM,AJCC 8th ed) TNM Descriptors: ?Not applicable Pathologic Staging (pTNM): ?pT3: Tumor invades through the muscularis propria into pericolorectal tissues Regional Lymph Nodes (pN): ?pN1b: Two or three regional lymph nodes are positive Distant Metastasis (pM): ?Not applicable/Not confirmed pathologically in this case Additional Pathologic Findings: ?Other: see comment above Ancillary Studies: ?Immunohistochemistry Studies for Mismatch Repair Proteins- Addendum to follow ? Result: MLH1, PMS2, MSH2, and MSH6 proteins with normal expression in carcinoma nuclei. Mismatch repair (MMR) status: Proficient (microsatellite stable) ? ? Pt. declined chemotherapy. ? No complaints. Appetite: it's good. Energy level:fair Denies fevers or recent illness. Resp:denies cough or sob Cardiac:denies chest pain/palpitations GI:denies abd pain, n/v, moving bowels regularly :denies dysuria/hematuria Extrem:denies pain Neuro:+neuropathy to hands/feet x past 8 years-since an epidural with a surgery Skin:denies rashes Heme:denies bleeding The ROS is otherwise negative. Past medical history, appointments, medications, allergies reviewed. No changes. EXAM: BP 105/63 Pulse 117 Temp 36.7 ?C (98 ?F) (Oral) Wt 102.5 kg (226 lb) BMI 32.20 kg/m? APPEARANCE Well appearing, alert, in no acute distress, well- hydrated, well nourished. HEART RRR with normal S1 and S2, no murmurs LUNG clear to auscultation LYMPH NODES No cervical lymphadenopathy, No supraclavicular lymphadenopathy and No axillary lymphadenopathy. ABDOMEN bowel sounds normoactive, soft, non-tender, non-distended, without organomegaly or palpable masses EXTREMITIES No edema NEURO Awake, alert and oriented x 3, Normal gait and No involuntary motions. SKIN Skin color, texture, turgor normal, no suspicious rashes or lesions LABS: CEA: Pending ASSESSMENT/PLAN: 1. Malignant neoplasm of hepatic flexure (HCC) - ICD9: 153.0, ICD10: C18.3 pT3 pN1 M0 stage IIIB adenocarcinoma the hepatic flexure. ? Per Dr. Montilla's previous note: Chest CT showed small pulmonary nodules. -Pathologic staging completed in problem was. -I discussed with the natural history, treated course, and prognosis of stage IIIB colon cancer. Also discussed the rationale, logistics, potential risks (including ), benefits and alternatives, as well as the personnel involved in the administration of infusional 5FU (capecitabine contraindicated secondary to CrCl<30 cc/min; patient has pre-existing neuropathy so did not advise oxaliplatin). -After a balanced discussion of the risks and benefits, he declined adjuvant chemotherapy and was not willing to give it further thought. -Dicussed plan for surveillance--no baseline CEA and CKD precludes IV contrast for CTs, so will see for OV in about 3-4 months and check CEA. If elevated, then CT without IV contrast. Plan: -OV for SCP in a week or two. ? ? - No concerning findings on exam. - CEA pending. - Follow up in 3 months with CEA-pending today's CEA. - Pt. aware to call office with any questions/concerns. The patient indicates understanding of these issues and agrees with the plan. Юлия Bermudez APRN.KNURLING MACHINE OPERATOR Referring Provider: SANCHEZ MONTILLA [[id number]] Allergies As of Date: 03/02/2018 (No Known Allergies) Date Reviewed: 03/02/2018 Reviewed by: Юлия Bermudez - Fully Assessed Reason for Visit: Established Patient [175] Primary Visit Diagnosis:Malignant neoplasm of hepatic flexure (HCC) [C18.3] Follow-up and Disposition History Recorded Prescriptions as of 03/02/2018 Sig: ACETAMINOPHEN 325 MG TABLET Take 1-2 tablets by mouth branden* ALBUTEROL SULFATE 2.5 MG/3 ML* inhale 1 vial in nebulizer ev* ALBUTEROL SULFATE HFA 90 MCG/* 2 Puffs every 6 hours as need* ALLOPURINOL 300 MG TABLET Take 300 mg by mouth once omar* ASPIRIN 81 MG TABLET,DELAYED * Take 1 tablet by mouth once d* CILOSTAZOL 100 MG TABLET Take 100 mg by mouth once omar* COLCRYS 0.6 MG TABLET Take 0.6 mg by mouth as neede* CONTOUR NEXT TEST STRIPS as needed. DIAZEPAM 10 MG TABLET Take 10 mg by mouth as needed* FERROUS SULFATE 325 MG (65 MG* Take 1 tablet by mouth daily * FINASTERIDE 5 MG TABLET Take 5 mg by mouth once daily. HYDRALAZINE 25 MG TABLET Take 25 mg by mouth twice omar* ISOSORBIDE MONONITRATE ER 30 * Take 30 mg by mouth once anabela* METOPROLOL SUCCINATE ER 50 MG* Take 1 tablet by mouth once d* NITROGLYCERIN 0.4 MG SUBLINGU* Dissolve 1 tablet under the t* NOVOLOG FLEXPEN U-100 INSULIN* Inject 10-40 Units subcutaneo* OXYCODONE 5 MG TABLET Take 5 mg by mouth twice anabela* PANTOPRAZOLE 40 MG TABLET,DEL* Take 1 tablet by mouth once d* SIMVASTATIN 80 MG TABLET Take 1 tablet by mouth once d* SODIUM BICARBONATE 650 MG TAB* Take 1 tablet by mouth three * Patient taking differently: Take 650 mg by mouth twice da* TAMSULOSIN 0.4 MG CAPSULE Take 1 capsule by mouth once * TRESIBA FLEXTOUCH U-200 INSUL* Inject 30 Units subcutaneousl* VITAMIN D2 50,000 UNIT CAPSULE Take 50,000 Units by mouth on* Problem List As Of Date 03/02/2018 Noted Resolved Chest mass [R22.2] INVALID FOR* Obesity, Class I, BMI 30-34.9 [E66.9] INVALID FOR* More... More... Coronary artery disease involving [place] champion*INVALID FOR* CKD (chronic kidney disease) stage 4, GFR 15-29*INVALID FOR* More... Type 2 diabetes mellitus with stage 4 chronic k*INVALID FOR* More... Essential hypertension [I10] INVALID FOR* More... 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 Colon cancer (HCC) [C18.9] INVALID FOR* Malignant neoplasm of hepatic flexure (HCC) [C1*INVALID FOR* Encounter Status:Closed by ЮЛИЯ BERMUDEZ CNP on 03/02/18 PROGRESS Observed: 03/02/2018 Status: COMPLETED Source: [place] 10:28 AM [facility] REPOSITORY HNO ID: [id number] Author: Юлия Bermudez Service: (none) Author Type: Nurse Practitioner Type: Progress Notes Filed: 03/02/2018 12:54 PM Note Text: Chief Complaint Patient presents with: Established Patient HPI: Bari Romero is a 62 year old male who presents here today for follow up colon cancer. Per Dr. Montilla's previous note: H/o CKD, CAD, HTN, PVD, COPD, LADARIUS, DM2 ? Patient underwent colonoscopy 09/2017 for JACQUELIN and heme positive stools. Was found to have multiple polyps and malignant-appearing mass at the hepatic flexure. ? Secondary to his comorbid conditions, was referred [facility] where he underwent total colectomy on 10/17/2017. ? Pathology: 1. 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 - See comment and synoptic report. 2. Sigmoid, sigmoidectomy (B) - Diverticulitis. - One lymph node, negative for carcinoma (0/1). COMMENT About 35 polyps were noted grossly throughout the colon, but more numerous in the right and transverse colon. ?The vast majority of these polyps are serrated (85-90%), with sessile serrated polyps (a couple with focal low-grade dysplasia; at least 2 SSPs are >?1 cm) being twice as common as hyperplastic polyps. ?Further, it appears that the carcinoma also arises from a SSP with dysplasia. ?Tubular adenomas account for 10- 15% of the polyps. 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 ?Given that a gene has not been identified in SPS patients, the pathologic findings/criteria are somewhat arbitrary, so please confirm clinically. SYNOPTIC REPORT OF GIANG PATHOLOGIC FINDINGS ABDOMINAL COLON WITH MASS AND POLYPS: ?COLON AND RECTUM:RESECTION, INCLUDING TRANSANAL DISK EXCISION OF RECTAL NEOPLASMS WORKSHEET: Procedure: ?Total abdominal colectomy Tumor Site: ?Right (ascending) colon Tumor Size: ?Greatest dimension: 6 cm ?Additional Dimension: 3 cm ?Additional Dimension: 2 cm Macroscopic Tumor Perforation: ?Not identified Histologic Type: ?Adenocarcinoma Histologic Grade: ?G2: Moderately differentiated Tumor Extension: ?Tumor invades through the muscularis propria into pericolorectal tissue Margins: ?All margins are uninvolved by invasive carcinoma, high-grade dysplasia, intramucosal adenocarcinoma, and adenoma ?Margins examined: proximal, distal, mesenteric Proximal Margin: ?Uninvolved by invasive carcinoma Distal Margin: ?Uninvolved by invasive carcinoma Circumferential Radial Margin: ?Uninvolved by invasive carcinoma Mesenteric Margin: ?Uninvolved by invasive carcinoma Treatment Effect: ?No known presurgical therapy Lymphovascular Invasion: ?Present ?Small vessel lymph-vascular invasion Perineural Invasion: ?Present Type of Polyp in which Invasive Carcinoma Arose: ?Sessile serrated adenoma/sessile serrated polyp Tumor Deposits: ?Not applicable Regional Lymph Nodes: ?Number of nodes involved: 2 ?Number of nodes examined: 26 ?? Pathologic Stage Classification (pTNM,AJCC 8th ed) TNM Descriptors: ?Not applicable Pathologic Staging (pTNM): ?pT3: Tumor invades through the muscularis propria into pericolorectal tissues Regional Lymph Nodes (pN): ?pN1b: Two or three regional lymph nodes are positive Distant Metastasis (pM): ?Not applicable/Not confirmed pathologically in this case Additional Pathologic Findings: ?Other: see comment above Ancillary Studies: ?Immunohistochemistry Studies for Mismatch Repair Proteins-Addendum to follow ? Result: MLH1, PMS2, MSH2, and MSH6 proteins with normal expression in carcinoma nuclei. Mismatch repair (MMR) status: Proficient (microsatellite stable) ? ? Pt. declined chemotherapy. ? No complaints. Appetite: it's good. Energy level:fair Denies fevers or recent illness. Resp:denies cough or sob Cardiac:denies chest pain/palpitations GI:denies abd pain, n/v, moving bowels regularly :denies dysuria/hematuria Extrem:denies pain Neuro:+neuropathy to hands/feet x past 8 years-since an epidural with a surgery Skin:denies rashes Heme:denies bleeding The ROS is otherwise negative. Past medical history, appointments, medications, allergies reviewed. No changes. EXAM: BP 105/63 Pulse 117 Temp 36.7 ?C (98 ?F) (Oral) Wt 102.5 kg (226 lb) BMI 32.20 kg/m? APPEARANCE Well appearing, alert, in no acute distress, well-hydrated, well nourished. HEART RRR with normal S1 and S2, no murmurs LUNG clear to auscultation LYMPH NODES No cervical lymphadenopathy, No supraclavicular lymphadenopathy and No axillary lymphadenopathy. ABDOMEN bowel sounds normoactive, soft, non-tender, non-distended, without organomegaly or palpable masses EXTREMITIES No edema NEURO Awake, alert and oriented x 3, Normal gait and No involuntary motions. SKIN Skin color, texture, turgor normal, no suspicious rashes or lesions LABS: CEA: Pending ASSESSMENT/PLAN: 1. Malignant neoplasm of hepatic flexure (HCC) - ICD9: 153.0, ICD10: C18.3 pT3 pN1 M0 stage IIIB adenocarcinoma the hepatic flexure. ? Per Dr. Montilla's previous note: Chest CT showed small pulmonary nodules. -Pathologic staging completed in problem was. -I discussed with the natural history, treated course, and prognosis of stage IIIB colon cancer. Also discussed the rationale, logistics, potential risks (including ), benefits and alternatives, as well as the personnel involved in the administration of infusional 5FU (capecitabine contraindicated secondary to CrCl<30 cc/min; patient has pre-existing neuropathy so did not advise oxaliplatin). -After a balanced discussion of the risks and benefits, he declined adjuvant chemotherapy and was not willing to give it further thought. -Dicussed plan for surveillance--no baseline CEA and CKD precludes IV contrast for CTs, so will see for OV in about 3-4 months and check CEA. If elevated, then CT without IV contrast. Plan: -OV for SCP in a week or two. ? ? - No concerning findings on exam. - CEA pending. - Follow up in 3 months with CEA-pending today's CEA. - Pt. aware to call office with any questions/concerns. The patient indicates understanding of these issues and agrees with the plan. Юлия Bermudez, DIMA.KNURLING MACHINE OPERATOR CEA Collected: 03/02/2018 Status: F Source: [place] 10:12 AM [facility] REPOSITORY TYPE CODE TESTS RESULT OUT OF RANGE REFERENCE UNITS LAB CEA 0.0-2.9 ng/mL CEA 2.4 Result Comment: Test analyzed by the scrible DxI method. Performed By: #### CEA #### [facility] [address] [id number] PROTEIN+CREATININE Collected: Status: F Source: [place] RATIO,URINE 02/16/2018 9:11 AM [facility] REPOSITORY TYPE CODE TESTS RESULT OUT OF RANGE REFERENCE UNITS LAB L501.1200 NO RANGE EST. mg/dL Normal UR CREAT 100.00 LAB L501.1930 <11.9 mg/dL High 118.7 PROTEIN,UR.R AN. LAB L501.1940 0-200 mg/g CRE High PROT:CRE 1187 RATIO Performed By: #### L501.0900 #### [facility] [address] [place], [place], [address] CBC-COMPLETE BLOOD CNT Collected: 02/16/2018 Status: F Source: [place] NO DIFF 9:02 AM [facility] REPOSITORY TYPE CODE TESTS RESULT OUT OF RANGE REFERENCE UNITS LAB L100.1000 4.4-11.0 K/mm3 High WBC 11.7 LAB L100.1200 4.6-6.2 M/mm3 Low RBC 4.21 LAB L100.1300 13.0-16.5 g/dl Low HGB 11.5 LAB L100.1400 40-54 % Low HCT 35.9 LAB L100.1500 80-94 fL Normal MCV 85.3 LAB L100.1600 27.0-32.0 pg Normal MCH 27.3 LAB L100.1700 32-36 g/gl Normal MCHC 32.0 LAB L100.1810 11.6-14.6 % High RDW CV 16.8 LAB L100.1820 35.1-43.9 fl High RDW SD 52.0 LAB L100.1900 150-450 K/mm3 Normal PLT 227 LAB L100.2000 6.2-12.0 fl High MPV 12.5 Performed By: #### L100.0500 #### [facility] [address] [place], [place], [address] RENAL PROFILE Collected: 02/16/2018 Status: F Source: [place] 9:02 AM [facility] REPOSITORY TYPE CODE TESTS RESULT OUT OF RANGE REFERENCE UNITS LAB L501.0100 74-106 mg/dL High GLU 304 Result Comment: Glucose result greater than or equal to 200 mg/dL suggests DIABETES MELLITUS per A.D.A. criteria. Please note revised GLUCOSE reference range effective 2017. LAB L501.1000 7-18 mg/dL High BUN 45 LAB L501.1100 0.70-1.30 mg/dL High CREAT,SERUM 2.60 Result Comment: The validity of the calculated GFR AND GFRAA in patients over 70 years has not been determined. Clinical correlation is essential. LAB L501.1110 >60 mL/min Low EST GFR 27 Result Comment: Non- GFR Calc LAB L501.1115 >60 mL/min Low EST GFR - AA 32 Result Comment: GFR Calc LAB L501.1300 10-20 RATIO Normal BUN/CRE 17.3 LAB L501.1800 3.2-5.0 g/dL Normal ALB 3.4 LAB L501.2200 8.5-10.1 mg/dL CA Normal 8.8 LAB L501.2300 2.5-4.9 mg/dL Normal PHOS 3.3 LAB L501.5300 136-145 mmol/L NA Normal 138 LAB L501.5600 3.5-5.1 mmol/L K Normal 4.6 LAB L501.5900 98-107 mmol/L High CL 109 LAB L501.6100 21.0-32.0 mmol/L Low CO2 20.0 Performed By: #### L500.3600 #### [facility] [address], [address] VITAMIN D,25 HYDROXY Collected: 02/16/2018 Status: F Source: [place] 9:02 AM [facility] REPOSITORY TYPE CODE TESTS RESULT OUT OF REFERENCE UNITS RANGE LAB L506.1000 29.95-100.01 ng/mL Low Vitamin D 27.9 25-OH Result Comment: Vitamin D 25(OH) Status Range Deficiency <20 ng/mL (50nmol/L) Insuffciency 20 - 30 ng/mL (50 - 75 nmol/L) Sufficiency 30 - 100 ng/mL (75 - 250 nmol/L) Toxicity >100 ng/mL (>250 nmol/L) Performed By: #### L506.1000 #### [facility] [address] [place], [address] PTHIN Collected: 02/16/2018 Status: F Source: [place] 9:02 AM [facility] REPOSITORY TYPE CODE TESTS RESULT OUT OF RANGE REFERENCE UNITS LAB L509.1000 18.4-80.1 pg/mL Normal PTHIN 50.8 Performed By: #### L509.1000 #### [facility] [address] [place], [address] PROGRESS Observed: 12/04/2017 Status: COMPLETED Source: [place] 11:38 AM [facility] REPOSITORY HNO ID: [id number] Author: Юлия Bermudez Service: (none) Author Type: Nurse Practitioner Type: Progress Notes Filed: 12/04/2017 2:39 PM Note Text: Chief Complaint Patient presents with: Established Patient HPI: Bari Romero is a 61 year old male who presents here today for SCP/colon cancer. Per Dr. Montilla's previous note: H/o CKD, CAD, HTN, PVD, COPD, LADARIUS, DM2 ? Patient underwent colonoscopy 09/2017 for JACQUELIN and heme positive stools. Was found to have multiple polyps and malignant-appearing mass at the hepatic flexure. ? Secondary to his comorbid conditions, was [facility] where he underwent total colectomy on 10/17/2017. ? Pathology: 1. 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 - See comment and synoptic report. 2. Sigmoid, sigmoidectomy (B) - Diverticulitis. - One lymph node, negative for carcinoma (0/1). COMMENT About 35 polyps were noted grossly throughout the colon, but more numerous in the right and transverse colon. ?The vast majority of these polyps are serrated (85-90%), with sessile serrated polyps (a couple with focal low-grade dysplasia; at least 2 SSPs are > 1 cm) being twice as common as hyperplastic polyps. ?Further, it appears that the carcinoma also arises from a SSP with dysplasia. ?Tubular adenomas account for 10- 15% of the polyps. 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 ?Given that a gene has not been identified in SPS patients, the pathologic findings/criteria are somewhat arbitrary, so please confirm clinically. SYNOPTIC REPORT OF GIANG PATHOLOGIC FINDINGS ABDOMINAL COLON WITH MASS AND POLYPS: ? ? ?COLON AND RECTUM:RESECTION, INCLUDING TRANSANAL DISK EXCISION OF RECTAL NEOPLASMS WORKSHEET: Procedure: ? ? ? Total abdominal colectomy Tumor Site: ? ? ? Right (ascending) colon Tumor Size: ? ? ? Greatest dimension: 6 cm ? ? ? Additional Dimension: 3 cm ? ? ? Additional Dimension: 2 cm Macroscopic Tumor Perforation: ? ? ? Not identified Histologic Type: ? ? ? Adenocarcinoma Histologic Grade: ? ? ? G2: Moderately differentiated Tumor Extension: ? ? ? Tumor invades through the muscularis propria into pericolorectal tissue Margins: ? ? ? All margins are uninvolved by invasive carcinoma, high-grade dysplasia, intramucosal adenocarcinoma, and adenoma ? ? ? Margins examined: proximal, distal, mesenteric Proximal Margin: ? ? ? Uninvolved by invasive carcinoma Distal Margin: ? ? ? Uninvolved by invasive carcinoma Circumferential Radial Margin: ? ? ? Uninvolved by invasive carcinoma Mesenteric Margin: ? ? ? Uninvolved by invasive carcinoma Treatment Effect: ? ? ? No known presurgical therapy Lymphovascular Invasion: ? ? ? Present ? ? ? Small vessel lymph-vascular invasion Perineural Invasion: ? ? ? Present Type of Polyp in which Invasive Carcinoma Arose: ? ? ? Sessile serrated adenoma/sessile serrated polyp Tumor Deposits: ? ? ? Not applicable Regional Lymph Nodes: ? ? ? Number of nodes involved: 2 ? ? ? Number of nodes examined: 26 ? Pathologic Stage Classification (pTNM,AJCC 8th ed) TNM Descriptors: ? ? ? Not applicable Pathologic Staging (pTNM): ? ? ? pT3: Tumor invades through the muscularis propria into pericolorectal tissues Regional Lymph Nodes (pN): ? ? ? pN1b: Two or three regional lymph nodes are positive Distant Metastasis (pM): ? ? ? Not applicable/Not confirmed pathologically in this case Additional Pathologic Findings: ? ? ? Other: see comment above Ancillary Studies: ? ? ? Immunohistochemistry Studies for Mismatch Repair Proteins-Addendum to follow ? Result: MLH1, PMS2, MSH2, and MSH6 proteins with normal expression in carcinoma nuclei. Mismatch repair (MMR) status: Proficient (microsatellite stable) ? No complaints. Pt. declined chemotherapy. Appetite: it good-I'm watching my potassium intake. Energy level:good Denies fevers or recent illness. Resp:denies cough or sob Cardiac:denies chest pain/palpitations GI:denies abd pain, n/v, moving bowels regularly :denies dysuria/hematuria Extrem:denies pain Neuro:+neuropathy to hands/feet x past 8 years-since an epidural with a surgery Skin:denies rashes Heme:denies bleeding The ROS is otherwise negative. Past medical history, appointments, medications, allergies reviewed. No changes. EXAM: BP 109/64 Pulse 104 Temp 36.8 ?C (98.2 ?F) (Temporal Artery) Wt 103.9 kg (229 lb) BMI 32.62 kg/m? APPEARANCE Well appearing, alert, in no acute distress, well-hydrated, well nourished. NEURO Awake, alert and oriented x 3, Normal gait and No involuntary motions. SKIN Skin color, texture, turgor normal, no suspicious rashes or lesions ASSESSMENT/PLAN: 1. Malignant neoplasm of hepatic flexure (HCC) - ICD9: 153.0, ICD10: C18.3 pT3 pN1 M0 stage IIIB adenocarcinoma the hepatic flexure. Per Dr. Montilla's previous note: Chest CT showed small pulmonary nodules. -Pathologic staging completed in problem was. -I discussed with the natural history, treated course, and prognosis of stage IIIB colon cancer. Also discussed the rationale, logistics, potential risks (including ), benefits and alternatives, as well as the personnel involved in the administration of infusional 5FU (capecitabine contraindicated secondary to CrCl<30 cc/min; patient has pre-existing neuropathy so did not advise oxaliplatin). -After a balanced discussion of the risks and benefits, he declined adjuvant chemotherapy and was not willing to give it further thought. -Dicussed plan for surveillance--no baseline CEA and CKD precludes IV contrast for CTs, so will see for OV in about 3-4 months and check CEA. If elevated, then CT without IV contrast. Plan: -OV for SCP in a week or two. ? - Discussed follow up plan with pt. and spouse. - Reviewed SCP with pt. and spouse. Copies given. - Follow up in 3 months with CEA. - Pt. aware to call office with any questions/concerns. The patient indicates understanding of these issues and agrees with the plan. Юлия Bermudez APRN.KNURLING MACHINE OPERATOR CNOVSP Observed: 12/04/2017 Status: COMPLETED Source: [place] 11:30 AM [facility] REPOSITORY Visit (SP) Office ([place]) BARI ROMERO ([id number]) 1955 M Date Time Provider Department 12/04/17 11:30 AM ЮЛИЯ BERMUDEZ (MEHNAZ CARNEY During your visit today, we recorded the following information about you: Temperature Pulse Blood pressure Weight 98.2 degrees 104/minute 109/64 103.9 kg Юлия Bermudez APRN.CNP 12/04/2017 2:39 PM Signed Chief Complaint Patient presents with: Established Patient HPI: Bari Romero is a 61 year old male who presents here today for SCP/colon cancer. Per Dr. Montilla's previous note: H/o CKD, CAD, HTN, PVD, COPD, LADARIUS, DM2 ? Patient underwent colonoscopy 09/2017 for JACQUELIN and heme positive stools. Was found to have multiple polyps and malignant-appearing mass at the hepatic flexure. ? Secondary to his comorbid conditions, was [facility] where he underwent total colectomy on 10/17/2017. ? Pathology: 1. 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 - See comment and synoptic report. 2. Sigmoid, sigmoidectomy (B) - Diverticulitis. - One lymph node, negative for carcinoma (0/1). COMMENT About 35 polyps were noted grossly throughout the colon, but more numerous in the right and transverse colon. ?The vast majority of these polyps are serrated (85-90%), with sessile serrated polyps (a couple with focal low-grade dysplasia; at least 2 SSPs are > 1 cm) being twice as common as hyperplastic polyps. ?Further, it appears that the carcinoma also arises from a SSP with dysplasia. ?Tubular adenomas account for 10-15% of the polyps. 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 ?Given that a gene has not been identified in SPS patients, the pathologic findings/criteria are somewhat arbitrary, so please confirm clinically. SYNOPTIC REPORT OF GIANG PATHOLOGIC FINDINGS ABDOMINAL COLON WITH MASS AND POLYPS: ? ? ?COLON AND RECTUM:RESECTION, INCLUDING TRANSANAL DISK EXCISION OF RECTAL NEOPLASMS WORKSHEET: Procedure: ? ? ? Total abdominal colectomy Tumor Site: ? ? ? Right (ascending) colon Tumor Size: ? ? ? Greatest dimension: 6 cm ? ? ? Additional Dimension: 3 cm ? ? ? Additional Dimension: 2 cm Macroscopic Tumor Perforation: ? ? ? Not identified Histologic Type: ? ? ? Adenocarcinoma Histologic Grade: ? ? ? G2: Moderately differentiated Tumor Extension: ? ? ? Tumor invades through the muscularis propria into pericolorectal tissue Margins: ? ? ? All margins are uninvolved by invasive carcinoma, high-grade dysplasia, intramucosal adenocarcinoma, and adenoma ? ? ? Margins examined: proximal, distal, mesenteric Proximal Margin: ? ? ? Uninvolved by invasive carcinoma Distal Margin: ? ? ? Uninvolved by invasive carcinoma Circumferential Radial Margin: ? ? ? Uninvolved by invasive carcinoma Mesenteric Margin: ? ? ? Uninvolved by invasive carcinoma Treatment Effect: ? ? ? No known presurgical therapy Lymphovascular Invasion: ? ? ? Present ? ? ? Small vessel lymph-vascular invasion Perineural Invasion: ? ? ? Present Type of Polyp in which Invasive Carcinoma Arose: ? ? ? Sessile serrated adenoma/sessile serrated polyp Tumor Deposits: ? ? ? Not applicable Regional Lymph Nodes: ? ? ? Number of nodes involved: 2 ? ? ? Number of nodes examined: 26 ? Pathologic Stage Classification (pTNM,AJCC 8th ed) TNM Descriptors: ? ? ? Not applicable Pathologic Staging (pTNM): ? ? ? pT3: Tumor invades through the muscularis propria into pericolorectal tissues Regional Lymph Nodes (pN): ? ? ? pN1b: Two or three regional lymph nodes are positive Distant Metastasis (pM): ? ? ? Not applicable/Not confirmed pathologically in this case Additional Pathologic Findings: ? ? ? Other: see comment above Ancillary Studies: ? ? ? Immunohistochemistry Studies for Mismatch Repair Proteins- Addendum to follow ? Result: MLH1, PMS2, MSH2, and MSH6 proteins with normal expression in carcinoma nuclei. Mismatch repair (MMR) status: Proficient (microsatellite stable) ? No complaints. Pt. declined chemotherapy. Appetite: it good-I'm watching my potassium intake. Energy level:good Denies fevers or recent illness. Resp:denies cough or sob Cardiac:denies chest pain/palpitations GI:denies abd pain, n/v, moving bowels regularly :denies dysuria/hematuria Extrem:denies pain Neuro:+neuropathy to hands/feet x past 8 years-since an epidural with a surgery Skin:denies rashes Heme:denies bleeding The ROS is otherwise negative. Past medical history, appointments, medications, allergies reviewed. No changes. EXAM: BP 109/64 Pulse 104 Temp 36.8 ?C (98.2 ?F) (Temporal Artery) Wt 103.9 kg (229 lb) BMI 32.62 kg/m? APPEARANCE Well appearing, alert, in no acute distress, well- hydrated, well nourished. NEURO Awake, alert and oriented x 3, Normal gait and No involuntary motions. SKIN Skin color, texture, turgor normal, no suspicious rashes or lesions ASSESSMENT/PLAN: 1. Malignant neoplasm of hepatic flexure (HCC) - ICD9: 153.0, ICD10: C18.3 pT3 pN1 M0 stage IIIB adenocarcinoma the hepatic flexure. Per Dr. Montilla's previous note: Chest CT showed small pulmonary nodules. -Pathologic staging completed in problem was. -I discussed with the natural history, treated course, and prognosis of stage IIIB colon cancer. Also discussed the rationale, logistics, potential risks (including ), benefits and alternatives, as well as the personnel involved in the administration of infusional 5FU (capecitabine contraindicated secondary to CrCl<30 cc/min; patient has pre-existing neuropathy so did not advise oxaliplatin). -After a balanced discussion of the risks and benefits, he declined adjuvant chemotherapy and was not willing to give it further thought. -Dicussed plan for surveillance--no baseline CEA and CKD precludes IV contrast for CTs, so will see for OV in about 3-4 months and check CEA. If elevated, then CT without IV contrast. Plan: -OV for SCP in a week or two. ? - Discussed follow up plan with pt. and spouse. - Reviewed SCP with pt. and spouse. Copies given. - Follow up in 3 months with CEA. - Pt. aware to call office with any questions/concerns. The patient indicates understanding of these issues and agrees with the plan. Юлия Bermudez APRN.KNURLING MACHINE OPERATOR Referring Provider: SANCHEZ MONTILLA [[id number]] Allergies As of Date: 12/04/2017 (No Known Allergies) Date Reviewed: 12/04/2017 Reviewed by: Юлия ([facility]) Aidan - Fully Assessed Reason for Visit: Established Patient [[id number]] Primary Visit Diagnosis:Malignant neoplasm of hepatic flexure (HCC) [C18.3] Follow-up and Disposition History Recorded Prescriptions as of 12/04/2017 Sig: ACETAMINOPHEN 325 MG TABLET Take 1-2 tablets by mouth branden* SODIUM BICARBONATE 650 MG TAB* Take 1 tablet by mouth three * ASPIRIN 81 MG TABLET,DELAYED * Take 1 tablet by mouth once d* ALBUTEROL SULFATE HFA 90 MCG/* 2 Puffs every 6 hours as need* NOVOLOG FLEXPEN U-100 INSULIN* Inject 10-40 Units subcutaneo* NITROGLYCERIN 0.4 MG SUBLINGU* Dissolve 1 tablet under the t* SIMVASTATIN 80 MG TABLET Take 1 tablet by mouth once d* METOPROLOL SUCCINATE ER 50 MG* Take 1 tablet by mouth once d* PANTOPRAZOLE 40 MG TABLET,DEL* Take 1 tablet by mouth once d* TAMSULOSIN 0.4 MG CAPSULE Take 1 capsule by mouth once * ALBUTEROL SULFATE 2.5 MG/3 ML* inhale 1 vial in nebulizer ev* ALLOPURINOL 300 MG TABLET Take 300 mg by mouth once omar* CONTOUR NEXT TEST STRIPS as needed. CILOSTAZOL 100 MG TABLET Take 100 mg by mouth once omar* COLCRYS 0.6 MG TABLET Take 0.6 mg by mouth as neede* DIAZEPAM 10 MG TABLET Take 10 mg by mouth as needed* VITAMIN D2 50,000 UNIT CAPSULE Take 50,000 Units by mouth on* FERROUS SULFATE 325 MG (65 MG* Take 1 tablet by mouth daily * FINASTERIDE 5 MG TABLET Take 5 mg by mouth once daily. HYDRALAZINE 25 MG TABLET Take 25 mg by mouth three quique* TRESIBA FLEXTOUCH U-200 INSUL* Inject 30 Units subcutaneousl* ISOSORBIDE MONONITRATE ER 30 * Take 30 mg by mouth once anabela* OXYCODONE 5 MG TABLET Take 5 mg by mouth twice anabela* Problem List As Of Date 12/04/2017 Noted Resolved Chest mass [R22.2] INVALID FOR* Obesity, Class I, BMI 30-34.9 [E66.9] INVALID FOR* More... More... Coronary artery disease involving o[place] champion*INVALID FOR* CKD (chronic kidney disease) stage 4, GFR 15-29*INVALID FOR* More... Type 2 diabetes mellitus with stage 4 chronic k*INVALID FOR* More... Essential hypertension [I10] INVALID FOR* More... 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 Colon cancer (HCC) [C18.9] INVALID FOR* Malignant neoplasm of hepatic flexure (HCC) [C1*INVALID FOR* Encounter Status:Closed by ЮЛИЯ BERMUDEZ CNP on 12/04/17 PROGRESS Observed: 11/28/2017 Status: COMPLETED Source: [place] 1:35 PM [facility] REPOSITORY HNO ID: [id number] Author: Sanchez Montilla Service: (none) Author Type: Physician Type: Progress Notes Filed: 11/28/2017 2:42 PM Note Text: Consult requested by Dr. Ku for my opinion and recommendations regarding adjuvant therapy for a patient recently diagnosed with stage III colon cancer. The impression and plan will be communicated by way of the shared electronic record. HPI: The patient is a 61 yo male with PMH significant for CKD, CAD, HTN, PVD, COPD, LADARIUS, DM2 Patient underwent colonoscopy 09/2017 for JACQUELIN and heme positive stools. Was found to have multiple polyps and malignant-appearing mass at the hepatic flexure. Secondary to his comorbid conditions, was referred [facility] where he underwent total colectomy on 10/17/2017. Pathology: 1. 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 - See comment and synoptic report. 2. Sigmoid, sigmoidectomy (B) - Diverticulitis. - One lymph node, negative for carcinoma (0/1). COMMENT About 35 polyps were noted grossly throughout the colon, but more numerous in the right and transverse colon. ?The vast majority of these polyps are serrated (85-90%), with sessile serrated polyps (a couple with focal low-grade dysplasia; at least 2 SSPs are > 1 cm) being twice as common as hyperplastic polyps. ?Further, it appears that the carcinoma also arises from a SSP with dysplasia. ?Tubular adenomas account for 10- 15% of the polyps. 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 ?Given that a gene has not been identified in SPS patients, the pathologic findings/criteria are somewhat arbitrary, so please confirm clinically. SYNOPTIC REPORT OF GIANG PATHOLOGIC FINDINGS ABDOMINAL COLON WITH MASS AND POLYPS: ? ? ?COLON AND RECTUM:RESECTION, INCLUDING TRANSANAL DISK EXCISION OF RECTAL NEOPLASMS WORKSHEET: Procedure: ? ? ? Total abdominal colectomy Tumor Site: ? ? ? Right (ascending) colon Tumor Size: ? ? ? Greatest dimension: 6 cm ? ? ? Additional Dimension: 3 cm ? ? ? Additional Dimension: 2 cm Macroscopic Tumor Perforation: ? ? ? Not identified Histologic Type: ? ? ? Adenocarcinoma Histologic Grade: ? ? ? G2: Moderately differentiated Tumor Extension: ? ? ? Tumor invades through the muscularis propria into pericolorectal tissue Margins: ? ? ? All margins are uninvolved by invasive carcinoma, high-grade dysplasia, intramucosal adenocarcinoma, and adenoma ? ? ? Margins examined: proximal, distal, mesenteric Proximal Margin: ? ? ? Uninvolved by invasive carcinoma Distal Margin: ? ? ? Uninvolved by invasive carcinoma Circumferential Radial Margin: ? ? ? Uninvolved by invasive carcinoma Mesenteric Margin: ? ? ? Uninvolved by invasive carcinoma Treatment Effect: ? ? ? No known presurgical therapy Lymphovascular Invasion: ? ? ? Present ? ? ? Small vessel lymph-vascular invasion Perineural Invasion: ? ? ? Present Type of Polyp in which Invasive Carcinoma Arose: ? ? ? Sessile serrated adenoma/sessile serrated polyp Tumor Deposits: ? ? ? Not applicable Regional Lymph Nodes: ? ? ? Number of nodes involved: 2 ? ? ? Number of nodes examined: 26 ? Pathologic Stage Classification (pTNM,AJCC 8th ed) TNM Descriptors: ? ? ? Not applicable Pathologic Staging (pTNM): ? ? ? pT3: Tumor invades through the muscularis propria into pericolorectal tissues Regional Lymph Nodes (pN): ? ? ? pN1b: Two or three regional lymph nodes are positive Distant Metastasis (pM): ? ? ? Not applicable/Not confirmed pathologically in this case Additional Pathologic Findings: ? ? ? Other: see comment above Ancillary Studies: ? ? ? Immunohistochemistry Studies for Mismatch Repair Proteins-Addendum to follow Result: MLH1, PMS2, MSH2, and MSH6 proteins with normal expression in carcinoma nuclei. Mismatch repair (MMR) status: Proficient (microsatellite stable) He feels is made a very nice recovery from surgery. He still has chronic loose/diarrhea bowel movements but his appetite is good. No abdominal pain, bloating or distention no episodes of jaundice. He has been diagnosed with stage IV chronic kidney disease. Most recent serum creatinine suggest GFR of about 28 cc/m. He has neuropathy manifested as numbness in both feet. He had what sounds to be a bilobectomy of his right lung in the past. There was a suggestion of cancer not based on biopsy. Final surgical specimen did not demonstrate cancer. PMH, medications and allergies personally reviewed by me today. Any changes documented in appropriate section. ROS: Constitutional: Denies episodes of fever and night sweats. Not significantly fatigued. Normal appetite. Neuro: Mild residual right upper hemiparesis and numbness as a anesthesia complication of previous lobectomy. HEENT: No recent change in voice, vision or hearing. Resp: Denies cough, wheeze and hemoptysis. Denies shortness of breath at rest. CVS: Denies exertional chest pain, PND, orthopnea and LE edema. GI: Denies dysgeusia. Denies symptoms of stomatitis. Denies dysphagia and odynophagia. Denies reflux, n/v and abdominal pain. : Denies dysuria or gross hematuria. No symptoms of bladder outlet obstruction. Endo: Denies hot flashes. Denies polyuria and polydipsia. Denies heat and cold intolerance. Musculoskeletal: Denies bone, back, joint and muscular pain. Derm: Denies rash. Denies jaundice and diffuse pruritis. Heme: Denies unusual bleeding and unexplained bruising. Psych: Normal mood. PHYSICAL EXAM: Vitals: Blood pressure 142/77, pulse 97, temperature 37.4 ?C (99.4 ?F), temperature source Temporal Artery, height 178.4 cm (5' 10.25), weight 104.3 kg (230 lb). Well-appearing and in no acute distress. EYES: Sclerae are anicteric bilaterally. ENT: Oral mucosa is unremarkable. There is no sign of thrush or mucositis. NECK: Supple. LYMPHATIC: There is no palpable cervical or supraclavicular adenopathy. RESPIRATORY: Inspiratory breath sounds are of normal intensity in all gamboa. No rales, wheezes or rhonchi. CARDIOVASCULAR: Rhythm is regular. Normal intensity S1/S2. ABDOMEN: The abdomen is nondistended. No organomegaly. No tenderness. Extremities: No swelling or edema. SKIN: No jaundice or rash. No petechiae. 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 MUSCULOSKELETAL: N No muscle wasting. ASSESSMENT/PLAN: (C18.3) Malignant neoplasm of hepatic flexure (HCC) (primary encounter diagnosis) Assessment: -pT3 pN1 M0 stage IIIB adenocarcinoma the hepatic flexure. -Chest CT showed small pulmonary nodules. -Pathologic staging completed in problem was. -I discussed with the natural history, treated course, and prognosis of stage IIIB colon cancer. Also discussed the rationale, logistics, potential risks (including ), benefits and alternatives, as well as the personnel involved in the administration of infusional 5FU (capecitabine contraindicated secondary to CrCl<30 cc/min; patient has pre-existing neuropathy so did not advise oxaliplatin). -After a balanced discussion of the risks and benefits, he declined adjuvant chemotherapy and was not willing to give it further thought. -Dicussed plan for surveillance--no baseline CEA and CKD precludes IV contrast for CTs, so will see for OV in about 3-4 months and check CEA. If elevated, then CT without IV contrast. Plan: -OV for SCP in a week or two. Sanchez Montilla DO CNOVSP Observed: 11/28/2017 Status: COMPLETED Source: [place] 1:30 PM [facility] REPOSITORY Visit (SP) Office (ANGELIKA) BARI ROMERO ([id number]) 1955 M Date Time Provider Department 11/28/17 1:30 PM SANCHEZ MONTILLA During your visit today, we recorded the following information about you: Temperature Pulse Blood pressure Weight 99.4 degrees 97/minute 142/77 104.3 kg Height 1.784 m La Nena Stapleton LPN 11/28/2017 1:42 PM Signed New patient. Discuss diagnosis of malignant neoplasm of hepatic flexure. La Nena Montilla DO 11/28/2017 2:42 PM Signed Consult requested by Dr. Ku for my opinion and recommendations regarding adjuvant therapy for a patient recently diagnosed with stage III colon cancer. The impression and plan will be communicated by way of the shared electronic record. HPI: The patient is a 61 yo male with PMH significant for CKD, CAD, HTN, PVD, COPD, LADARIUS, DM2 Patient underwent colonoscopy 09/2017 for JACQUELIN and heme positive stools. Was found to have multiple polyps and malignant-appearing mass at the hepatic flexure. Secondary to his comorbid conditions, was referred [facility] where he underwent total colectomy on 10/17/2017. Pathology: 1. 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 - See comment and synoptic report. 2. Sigmoid, sigmoidectomy (B) - Diverticulitis. - One lymph node, negative for carcinoma (0/1). COMMENT About 35 polyps were noted grossly throughout the colon, but more numerous in the right and transverse colon. ?The vast majority of these polyps are serrated (85-90%), with sessile serrated polyps (a couple with focal low-grade dysplasia; at least 2 SSPs are > 1 cm) being twice as common as hyperplastic polyps. ?Further, it appears that the carcinoma also arises from a SSP with dysplasia. ?Tubular adenomas account for 10-15% of the polyps. 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 ?Given that a gene has not been identified in SPS patients, the pathologic findings/criteria are somewhat arbitrary, so please confirm clinically. SYNOPTIC REPORT OF GIANG PATHOLOGIC FINDINGS ABDOMINAL COLON WITH MASS AND POLYPS: ? ? ?COLON AND RECTUM:RESECTION, INCLUDING TRANSANAL DISK EXCISION OF RECTAL NEOPLASMS WORKSHEET: Procedure: ? ? ? Total abdominal colectomy Tumor Site: ? ? ? Right (ascending) colon Tumor Size: ? ? ? Greatest dimension: 6 cm ? ? ? Additional Dimension: 3 cm ? ? ? Additional Dimension: 2 cm Macroscopic Tumor Perforation: ? ? ? Not identified Histologic Type: ? ? ? Adenocarcinoma Histologic Grade: ? ? ? G2: Moderately differentiated Tumor Extension: ? ? ? Tumor invades through the muscularis propria into pericolorectal tissue Margins: ? ? ? All margins are uninvolved by invasive carcinoma, high-grade dysplasia, intramucosal adenocarcinoma, and adenoma ? ? ? Margins examined: proximal, distal, mesenteric Proximal Margin: ? ? ? Uninvolved by invasive carcinoma Distal Margin: ? ? ? Uninvolved by invasive carcinoma Circumferential Radial Margin: ? ? ? Uninvolved by invasive carcinoma Mesenteric Margin: ? ? ? Uninvolved by invasive carcinoma Treatment Effect: ? ? ? No known presurgical therapy Lymphovascular Invasion: ? ? ? Present ? ? ? Small vessel lymph-vascular invasion Perineural Invasion: ? ? ? Present Type of Polyp in which Invasive Carcinoma Arose: ? ? ? Sessile serrated adenoma/sessile serrated polyp Tumor Deposits: ? ? ? Not applicable Regional Lymph Nodes: ? ? ? Number of nodes involved: 2 ? ? ? Number of nodes examined: 26 ? Pathologic Stage Classification (pTNM,AJCC 8th ed) TNM Descriptors: ? ? ? Not applicable Pathologic Staging (pTNM): ? ? ? pT3: Tumor invades through the muscularis propria into pericolorectal tissues Regional Lymph Nodes (pN): ? ? ? pN1b: Two or three regional lymph nodes are positive Distant Metastasis (pM): ? ? ? Not applicable/Not confirmed pathologically in this case Additional Pathologic Findings: ? ? ? Other: see comment above Ancillary Studies: ? ? ? Immunohistochemistry Studies for Mismatch Repair Proteins- Addendum to follow Result: MLH1, PMS2, MSH2, and MSH6 proteins with normal expression in carcinoma nuclei. Mismatch repair (MMR) status: Proficient (microsatellite stable) He feels is made a very nice recovery from surgery. He still has chronic loose/diarrhea bowel movements but his appetite is good. No abdominal pain, bloating or distention no episodes of jaundice. He has been diagnosed with stage IV chronic kidney disease. Most recent serum creatinine suggest GFR of about 28 cc/m. He has neuropathy manifested as numbness in both feet. He had what sounds to be a bilobectomy of his right lung in the past. There was a suggestion of cancer not based on biopsy. Final surgical specimen did not demonstrate cancer. PMH, medications and allergies personally reviewed by me today. Any changes documented in appropriate section. ROS: Constitutional: Denies episodes of fever and night sweats. Not significantly fatigued. Normal appetite. Neuro: Mild residual right upper hemiparesis and numbness as a anesthesia complication of previous lobectomy. HEENT: No recent change in voice, vision or hearing. Resp: Denies cough, wheeze and hemoptysis. Denies shortness of breath at rest. CVS: Denies exertional chest pain, PND, orthopnea and LE edema. GI: Denies dysgeusia. Denies symptoms of stomatitis. Denies dysphagia and odynophagia. Denies reflux, n/v and abdominal pain. : Denies dysuria or gross hematuria. No symptoms of bladder outlet obstruction. Endo: Denies hot flashes. Denies polyuria and polydipsia. Denies heat and cold intolerance. Musculoskeletal: Denies bone, back, joint and muscular pain. Derm: Denies rash. Denies jaundice and diffuse pruritis. Heme: Denies unusual bleeding and unexplained bruising. Psych: Normal mood. PHYSICAL EXAM: Vitals: Blood pressure 142/77, pulse 97, temperature 37.4 ?C (99.4 ?F), temperature source Temporal Artery, height 178.4 cm (5' 10.25), weight 104.3 kg (230 lb). Well-appearing and in no acute distress. EYES: Sclerae are anicteric bilaterally. ENT: Oral mucosa is unremarkable. There is no sign of thrush or mucositis. NECK: Supple. LYMPHATIC: There is no palpable cervical or supraclavicular adenopathy. RESPIRATORY: Inspiratory breath sounds are of normal intensity in all gamboa. No rales, wheezes or rhonchi. CARDIOVASCULAR: Rhythm is regular. Normal intensity S1/S2. ABDOMEN: The abdomen is nondistended. No organomegaly. No tenderness. Extremities: No swelling or edema. SKIN: No jaundice or rash. No petechiae. 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 MUSCULOSKELETAL: N No muscle wasting. ASSESSMENT/PLAN: (C18.3) Malignant neoplasm of hepatic flexure (HCC) (primary encounter diagnosis) Assessment: -pT3 pN1 M0 stage IIIB adenocarcinoma the hepatic flexure. -Chest CT showed small pulmonary nodules. -Pathologic staging completed in problem was. -I discussed with the natural history, treated course, and prognosis of stage IIIB colon cancer. Also discussed the rationale, logistics, potential risks (including ), benefits and alternatives, as well as the personnel involved in the administration of infusional 5FU (capecitabine contraindicated secondary to CrCl<30 cc/min; patient has pre-existing neuropathy so did not advise oxaliplatin). -After a balanced discussion of the risks and benefits, he declined adjuvant chemotherapy and was not willing to give it further thought. -Dicussed plan for surveillance--no baseline CEA and CKD precludes IV contrast for CTs, so will see for OV in about 3-4 months and check CEA. If elevated, then CT without IV contrast. Plan: -OV for SCP in a week or two. Sanchez Montilla DO Referring Provider: CHAPARRO KU [[id number]] Allergies As of Date: 11/28/2017 (No Known Allergies) Date Reviewed: 11/28/2017 Reviewed by: La Nena Stapleton LPN - Fully Assessed Reason for Visit: New Patient [[id number]] Primary Visit Diagnosis:Malignant neoplasm of hepatic flexure (HCC) [C18.3] Follow-up and Disposition History Recorded Prescriptions as of 11/28/2017 Sig: ACETAMINOPHEN 325 MG TABLET Take 1-2 tablets by mouth branden* SODIUM BICARBONATE 650 MG TAB* Take 1 tablet by mouth three * ASPIRIN 81 MG TABLET,DELAYED * Take 1 tablet by mouth once d* ALBUTEROL SULFATE HFA 90 MCG/* 2 Puffs every 6 hours as need* NOVOLOG FLEXPEN U-100 INSULIN* Inject 10-40 Units subcutaneo* NITROGLYCERIN 0.4 MG SUBLINGU* Dissolve 1 tablet under the t* SIMVASTATIN 80 MG TABLET Take 1 tablet by mouth once d* METOPROLOL SUCCINATE ER 50 MG* Take 1 tablet by mouth once d* PANTOPRAZOLE 40 MG TABLET,DEL* Take 1 tablet by mouth once d* TAMSULOSIN 0.4 MG CAPSULE Take 1 capsule by mouth once * ALBUTEROL SULFATE 2.5 MG/3 ML* inhale 1 vial in nebulizer ev* ALLOPURINOL 300 MG TABLET Take 300 mg by mouth once omar* CILOSTAZOL 100 MG TABLET Take 100 mg by mouth once omar* COLCRYS 0.6 MG TABLET Take 0.6 mg by mouth as neede* DIAZEPAM 10 MG TABLET Take 10 mg by mouth as needed* VITAMIN D2 50,000 UNIT CAPSULE Take 50,000 Units by mouth on* FERROUS SULFATE 325 MG (65 MG* Take 1 tablet by mouth daily * FINASTERIDE 5 MG TABLET Take 5 mg by mouth once daily. HYDRALAZINE 25 MG TABLET Take 25 mg by mouth three quique* TRESIBA FLEXTOUCH U-200 INSUL* Inject 30 Units subcutaneousl* ISOSORBIDE MONONITRATE ER 30 * Take 30 mg by mouth once anabela* OXYCODONE 5 MG TABLET Take 5 mg by mouth twice anabela* CONTOUR NEXT TEST STRIPS as needed. POLYMYXIN B SULFATE 10,000 UN* place 1 drop into left eye fo* Medication notes this encounter POLYMYXIN B SULFATE 10,000 UNIT-TRIMETHOPRIM 1 MG/ML EYE DROPS >> La Nena Stapleton LPN 11/28/2017 1:23 PM >> CECY ESCOBARLA NENA FriNov 28, 2017 1:23 PM completed Problem List As Of Date 11/28/2017 Noted Resolved Chest mass [R22.2] INVALID FOR* Obesity, Class I, BMI 30-34.9 [E66.9] INVALID FOR* More... More... Coronary artery disease involving [place] champion*INVALID FOR* CKD (chronic kidney disease) stage 4, GFR 15-29*INVALID FOR* More... Type 2 diabetes mellitus with stage 4 chronic k*INVALID FOR* More... Essential hypertension [I10] INVALID FOR* More... 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 Colon cancer (HCC) [C18.9] INVALID FOR* Malignant neoplasm of hepatic flexure (HCC) [C1*INVALID FOR* Visit Notes: >> La Nena Cecy ESCOBAR FriNov 28, 2017 1:23 PM Status: Signed New patient. Discuss diagnosis of malignant neoplasm of hepatic flexure. La Nena Stapleton LPN Encounter Status:Closed by SANCHEZ MONTILLA DO on 11/28/17 CNPN Observed: 11/19/2017 Status: COMPLETED Source: [place] 12:00 AM [facility] REPOSITORY Telephone ([facility]) BARI ROMERO ([id number]) 1955 M Date Time Provider Department 11/19/17 CHAPARRO KU GENS During your visit today, we recorded the following information about you: Amy Vuong LPN 11/19/2017 7:45 AM Signed Patient needs to see oncology for malignant neoplasm of hepatic flexure. Sanchez Montilla DO 11/19/2017 8:08 AM Signed I have new patient times both and Friday. Please schedule him and let him know. Sanchez Montilla, DO Yne Shine Psr 11/19/2017 10:12 AM Signed I called and left a message for Bari to call our office back to schedule a new patient visit with . When patient calls back please schedule next new patient spot that works for the patient, no lab work prior. The appointment notes should read as follows... 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 Once scheduled please note and close encounter Yen Shine Psr Paulina Wright Psr 11/25/2017 1:47 PM Signed 2nd attempt to contact patient to schedule new patient with Dr. Montilla. Yen Shine Psr 11/26/2017 9:04 AM Signed 3rd attempt made to contact Bari to schedule a new patient appointment, message lest. I also tried calling patient's spouse's phone but the voicemail box has not been set up. Yen Shine Psr Jill Witt PSR 11/26/2017 9:45 AM Addendum Patient called in to schedule and, upon being transferred to Hem/Onc, patient was no longer on the phone. Called patient back and left generic message for patient to return the call. Jill Witt VICKIE Paulina off Psr 11/26/2017 9:46 AM Signed Scheduled 11/28. Allergies As of Date: 11/19/2017 (No Known Allergies) Date Reviewed: 11/18/2017 Reviewed by: Luis Dunn - Fully Assessed Reason for Visit: Appointment [[id number]] Prescriptions as of 11/19/2017 Sig: ACETAMINOPHEN 325 MG TABLET Take 1-2 tablets by mouth branden* SODIUM BICARBONATE 650 MG TAB* Take 1 tablet by mouth three * ASPIRIN 81 MG TABLET,DELAYED * Take 1 tablet by mouth once d* ALBUTEROL SULFATE HFA 90 MCG/* 2 Puffs every 6 hours as need* NOVOLOG FLEXPEN U-100 INSULIN* Inject 10-40 Units subcutaneo* NITROGLYCERIN 0.4 MG SUBLINGU* Dissolve 1 tablet under the t* SIMVASTATIN 80 MG TABLET Take 1 tablet by mouth once d* METOPROLOL SUCCINATE ER 50 MG* Take 1 tablet by mouth once d* PANTOPRAZOLE 40 MG TABLET,DEL* Take 1 tablet by mouth once d* TAMSULOSIN 0.4 MG CAPSULE Take 1 capsule by mouth once * ALBUTEROL SULFATE 2.5 MG/3 ML* inhale 1 vial in nebulizer ev* ALLOPURINOL 300 MG TABLET Take 300 mg by mouth once omar* CONTOUR NEXT TEST STRIPS as needed. CILOSTAZOL 100 MG TABLET Take 100 mg by mouth once omar* COLCRYS 0.6 MG TABLET Take 0.6 mg by mouth as neede* DIAZEPAM 10 MG TABLET Take 10 mg by mouth as needed* VITAMIN D2 50,000 UNIT CAPSULE Take 50,000 Units by mouth on* FERROUS SULFATE 325 MG (65 MG* Take 1 tablet by mouth daily * FINASTERIDE 5 MG TABLET Take 5 mg by mouth once daily. HYDRALAZINE 25 MG TABLET Take 25 mg by mouth three quique* TRESIBA FLEXTOUCH U-200 INSUL* Inject 30 Units subcutaneousl* ISOSORBIDE MONONITRATE ER 30 * Take 30 mg by mouth once anabela* OXYCODONE 5 MG TABLET Take 5 mg by mouth twice anabela* POLYMYXIN B SULFATE 10,000 UN* place 1 drop into left eye fo* Problem List As Of Date 11/19/2017 Noted Resolved Chest mass [R22.2] INVALID FOR* Obesity, Class I, BMI 30-34.9 [E66.9] INVALID FOR* More... More... Coronary artery disease involving [place] champion*INVALID FOR* CKD (chronic kidney disease) stage 4, GFR 15-29*INVALID FOR* More... Type 2 diabetes mellitus with stage 4 chronic k*INVALID FOR* More... Essential hypertension [I10] INVALID FOR* More... 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 Colon cancer (HCC) [C18.9] INVALID FOR* Encounter Status:Closed by YEN NOEL on 11/26/17 CNOV Observed: 11/18/2017 Status: COMPLETED Source: [place] 10:15 AM [facility] REPOSITORY Office Visit (ABELINO) BARI ROMERO ([id number]) 1955 M Date Time Provider Department 11/18/17 10:15 AM LUIS DUNN During your visit today, we recorded the following information about you: Weight Height 102.5 kg 1.854 m Luis Dunn MD 11/18/2017 11:02 AM Signed Bari Walton Heather returns for a post-operative visit after undergoing Laparoscopic total abdominal colectomy with ileosigmoid anastomosis and flexible sigmoidoscopy, on 10/17/2017. His post-operative period was uncomplicated. He feels better than before. He is tolerating diet with an improving appetite, stable weight, and bowel function -having 2-3 BM per day. He has no specific complaints at this time. He has not seen a oncologist since surgery. Pathology reviewed: Yes 1. 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 - See comment and synoptic report. 2. Sigmoid, sigmoidectomy (B) - Diverticulitis. - One lymph node, negative for carcinoma (0/1). Imaging reviewed: Not Applicable Current Outpatient Prescriptions: acetaminophen (TYLENOL) 325 mg tablet Take 1-2 tablets by mouth every 6 hours as needed for Pain. Disp: Rfl: sodium bicarbonate 650 mg tablet Take 1 tablet by mouth three times daily. Disp: Rfl: aspirin, enteric coated (ECOTRIN LOW STRENGTH) 81 mg EC tablet Take 1 tablet by mouth once daily. Disp: Rfl: albuterol HFA (PROAIR HFA) 90 mcg/actuation inhaler 2 Puffs every 6 hours as needed for Wheezing/Shortness of Breath. Take as directed Disp: Rfl: NOVOLOG FLEXPEN U-100 INSULIN 100 unit/mL inpn Inject 10-40 Units subcutaneously three times daily before meals. Sliding Scale Disp: Rfl: 0 nitroglycerin sublingual (NITROQUICK) 0.4 mg SL tablet Dissolve 1 tablet under the tongue as needed for Chest Pain. If no pain relief call 911. Disp: Rfl: simvastatin (ZOCOR) 80 mg tablet Take 1 tablet by mouth once daily. Disp: Rfl: metoprolol succinate ER (TOPROL XL) 50 mg 24 hr tablet Take 1 tablet by mouth once daily. Disp: Rfl: pantoprazole DR (PROTONIX) 40 mg tablet Take 1 tablet by mouth once daily. Disp: Rfl: tamsulosin ER (FLOMAX) 0.4 mg cap Take 1 capsule by mouth once daily. Disp: Rfl: albuterol (PROVENTIL) 2.5 mg /3 mL (0.083 %) nebulizer solution inhale 1 vial in nebulizer every 4 to 6 hours if needed for shortness of breath or wheezing Disp: Rfl: 0 allopurinol (ZYLOPRIM) 300 mg tablet Take 300 mg by mouth once daily. Disp: Rfl: 0 CONTOUR NEXT TEST STRIPS test strip as needed. Disp: Rfl: 0 cilostazol (PLETAL) 100 mg tablet Take 100 mg by mouth once daily. Disp: Rfl: 0 COLCRYS 0.6 mg tablet Take 0.6 mg by mouth as needed. Disp: Rfl: 0 diazePAM (VALIUM) 10 mg tablet Take 10 mg by mouth as needed. Disp: Rfl: 0 VITAMIN D 50,000 unit capsule Take 50,000 Units by mouth once each week. Disp: Rfl: 0 ferrous sulfate 325 mg (65 mg iron) tablet Take 1 tablet by mouth daily with breakfast. Disp: Rfl: 0 finasteride (PROSCAR) 5 mg tablet Take 5 mg by mouth once daily. Disp: Rfl: 0 hydrALAZINE (APRESOLINE) 25 mg tablet Take 25 mg by mouth three times daily. Disp: Rfl: 0 TRESIBA FLEXTOUCH U-200 200 unit/mL (3 mL) injection Inject 30 Units subcutaneously once daily. Per pt. 10/09/17 Disp: Rfl: 0 isosorbide mononitrate ER (IMDUR) 30 mg 24 hr tablet Take 30 mg by mouth once daily. Disp: Rfl: 0 oxyCODONE IR (ROXICODONE) 5 mg immediate release tablet Take 5 mg by mouth twice daily as needed. Disp: Rfl: 0 trimethoprim-polymyxin eye drops (POLYTRIM) ophthalmic solution place 1 drop into left eye four times a day Disp: Rfl: 0 No current facility-administered medications for this visit. ALLERGIES No Known Allergies Ht 185.4 cm (6' 1) Wt 102.5 kg (226 lb) BMI 29.82 kg/m? Abdominal examination: soft, non-distended, and non-tender without masses or hernias. Wound is well healed. Patient does not have a stoma. Perineal wound: No Assessment Normal post-operative recovery Plan PLAN 1. Return to normal diet and activity without restriction 2. Follow-up visit in 4-6 months. 3. Cancer survivorship consult (placed today) 4. Additional testing/consults: Consult to Oncology -- Dr Ku to arrange. Luis Dunn MD November 14, 2017 12:28 PM Referring Provider: CAESAR CHAVEZ [[id number]] Allergies As of Date: 11/18/2017 (No Known Allergies) Date Reviewed: 11/18/2017 Reviewed by: Luis Dunn - Fully Assessed Reason for Visit: Post Op [174] Visit Diagnosis:Malignant neoplasm of hepatic flexure (HCC) [C18.3] Prescriptions as of 11/18/2017 Sig: ACETAMINOPHEN 325 MG TABLET Take 1-2 tablets by mouth branden* SODIUM BICARBONATE 650 MG TAB* Take 1 tablet by mouth three * ASPIRIN 81 MG TABLET,DELAYED * Take 1 tablet by mouth once d* ALBUTEROL SULFATE HFA 90 MCG/* 2 Puffs every 6 hours as need* NOVOLOG FLEXPEN U-100 INSULIN* Inject 10-40 Units subcutaneo* NITROGLYCERIN 0.4 MG SUBLINGU* Dissolve 1 tablet under the t* SIMVASTATIN 80 MG TABLET Take 1 tablet by mouth once d* METOPROLOL SUCCINATE ER 50 MG* Take 1 tablet by mouth once d* PANTOPRAZOLE 40 MG TABLET,DEL* Take 1 tablet by mouth once d* TAMSULOSIN 0.4 MG CAPSULE Take 1 capsule by mouth once * ALBUTEROL SULFATE 2.5 MG/3 ML* inhale 1 vial in nebulizer ev* ALLOPURINOL 300 MG TABLET Take 300 mg by mouth once omar* CONTOUR NEXT TEST STRIPS as needed. CILOSTAZOL 100 MG TABLET Take 100 mg by mouth once omar* COLCRYS 0.6 MG TABLET Take 0.6 mg by mouth as neede* DIAZEPAM 10 MG TABLET Take 10 mg by mouth as needed* VITAMIN D2 50,000 UNIT CAPSULE Take 50,000 Units by mouth on* FERROUS SULFATE 325 MG (65 MG* Take 1 tablet by mouth daily * FINASTERIDE 5 MG TABLET Take 5 mg by mouth once daily. HYDRALAZINE 25 MG TABLET Take 25 mg by mouth three quique* TRESIBA FLEXTOUCH U-200 INSUL* Inject 30 Units subcutaneousl* ISOSORBIDE MONONITRATE ER 30 * Take 30 mg by mouth once anabela* OXYCODONE 5 MG TABLET Take 5 mg by mouth twice anabela* POLYMYXIN B SULFATE 10,000 UN* place 1 drop into left eye fo* Problem List As Of Date 11/18/2017 Noted Resolved Chest mass [R22.2] INVALID FOR* Obesity, Class I, BMI 30-34.9 [E66.9] INVALID FOR* More... More... Coronary artery disease involving [place] champion*INVALID FOR* CKD (chronic kidney disease) stage 4, GFR 15-29*INVALID FOR* More... Type 2 diabetes mellitus with stage 4 chronic k*INVALID FOR* More... Essential hypertension [I10] INVALID FOR* More... 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 Colon cancer (HCC) [C18.9] INVALID FOR* Level of Service: POST-OP VISIT (NO CHARGE) NON-OB [26152] Disposition: Return in about 6 months (around 05/18/2018). Follow-up and Disposition History Recorded Encounter Status:Closed by LUIS DUNN MD on 11/18/17 PROGRESS Observed: 11/14/2017 Status: COMPLETED Source: [place] 12:28 PM [facility] [place] REPOSITORY O ID: [id number] Author: Luis Dunn Service: (none) Author Type: Physician Type: Progress Notes Filed: 11/18/2017 11:02 AM Note Text: Bari Romero returns for a post-operative visit after undergoing Laparoscopic total abdominal colectomy with ileosigmoid anastomosis and flexible sigmoidoscopy, on 10/17/2017. His post-operative period was uncomplicated. He feels better than before. He is tolerating diet with an improving appetite, stable weight, and bowel function -having 2-3 BM per day. He has no specific complaints at this time. He has not seen a oncologist since surgery. Pathology reviewed: Yes 1. 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 - See comment and synoptic report. 2. Sigmoid, sigmoidectomy (B) - Diverticulitis. - One lymph node, negative for carcinoma (0/1). Imaging reviewed: Not Applicable Current Outpatient Prescriptions: acetaminophen (TYLENOL) 325 mg tablet Take 1-2 tablets by mouth every 6 hours as needed for Pain. Disp: Rfl: sodium bicarbonate 650 mg tablet Take 1 tablet by mouth three times daily. Disp: Rfl: aspirin, enteric coated (ECOTRIN LOW STRENGTH) 81 mg EC tablet Take 1 tablet by mouth once daily. Disp: Rfl: albuterol HFA (PROAIR HFA) 90 mcg/actuation inhaler 2 Puffs every 6 hours as needed for Wheezing/Shortness of Breath. Take as directed Disp: Rfl: NOVOLOG FLEXPEN U-100 INSULIN 100 unit/mL inpn Inject 10-40 Units subcutaneously three times daily before meals. Sliding Scale Disp: Rfl: 0 nitroglycerin sublingual (NITROQUICK) 0.4 mg SL tablet Dissolve 1 tablet under the tongue as needed for Chest Pain. If no pain relief call 911. Disp: Rfl: simvastatin (ZOCOR) 80 mg tablet Take 1 tablet by mouth once daily. Disp: Rfl: metoprolol succinate ER (TOPROL XL) 50 mg 24 hr tablet Take 1 tablet by mouth once daily. Disp: Rfl: pantoprazole DR (PROTONIX) 40 mg tablet Take 1 tablet by mouth once daily. Disp: Rfl: tamsulosin ER (FLOMAX) 0.4 mg cap Take 1 capsule by mouth once daily. Disp: Rfl: albuterol (PROVENTIL) 2.5 mg /3 mL (0.083 %) nebulizer solution inhale 1 vial in nebulizer every 4 to 6 hours if needed for shortness of breath or wheezing Disp: Rfl: 0 allopurinol (ZYLOPRIM) 300 mg tablet Take 300 mg by mouth once daily. Disp: Rfl: 0 CONTOUR NEXT TEST STRIPS test strip as needed. Disp: Rfl: 0 cilostazol (PLETAL) 100 mg tablet Take 100 mg by mouth once daily. Disp: Rfl: 0 COLCRYS 0.6 mg tablet Take 0.6 mg by mouth as needed. Disp: Rfl: 0 diazePAM (VALIUM) 10 mg tablet Take 10 mg by mouth as needed. Disp: Rfl: 0 VITAMIN D 50,000 unit capsule Take 50,000 Units by mouth once each week. Disp: Rfl: 0 ferrous sulfate 325 mg (65 mg iron) tablet Take 1 tablet by mouth daily with breakfast. Disp: Rfl: 0 finasteride (PROSCAR) 5 mg tablet Take 5 mg by mouth once daily. Disp: Rfl: 0 hydrALAZINE (APRESOLINE) 25 mg tablet Take 25 mg by mouth three times daily. Disp: Rfl: 0 TRESIBA FLEXTOUCH U-200 200 unit/mL (3 mL) injection Inject 30 Units subcutaneously once daily. Per pt. 10/09/17 Disp: Rfl: 0 isosorbide mononitrate ER (IMDUR) 30 mg 24 hr tablet Take 30 mg by mouth once daily. Disp: Rfl: 0 oxyCODONE IR (ROXICODONE) 5 mg immediate release tablet Take 5 mg by mouth twice daily as needed. Disp: Rfl: 0 trimethoprim-polymyxin eye drops (POLYTRIM) ophthalmic solution place 1 drop into left eye four times a day Disp: Rfl: 0 No current facility-administered medications for this visit. ALLERGIES No Known Allergies Ht 185.4 cm (6' 1) Wt 102.5 kg (226 lb) BMI 29.82 kg/m? Abdominal examination: soft, non-distended, and non-tender without masses or hernias. Wound is well healed. Patient does not have a stoma. Perineal wound: No Assessment Normal post-operative recovery Plan PLAN 1. Return to normal diet and activity without restriction 2. Follow-up visit in 4-6 months. 3. Cancer survivorship consult (placed today) 4. Additional testing/consults: Consult to Oncology -- Dr Ku to arrange. Luis Dunn MD November 14, 2017 12:28 PM CBC-COMPLETE BLOOD CNT Collected: 11/12/2017 Status: F Source: [place] NO [place] 9:53 AM [facility] [place] REPOSITORY TYPE CODE TESTS RESULT OUT OF RANGE REFERENCE UNITS LAB L100.1000 4.4-11.0 K/mm3 Normal WBC 9.2 LAB L100.1200 4.6-6.2 M/mm3 Low RBC 4.33 LAB L100.1300 13.0-16.5 g/dl Low HGB 11.3 LAB L100.1400 40-54 % Low HCT 36.4 LAB L100.1500 80-94 fL Normal MCV 84.1 LAB L100.1600 27.0-32.0 pg Low MCH 26.1 LAB L100.1700 32-36 g/gl Low MCHC 31.0 LAB L100.1810 11.6-14.6 % High RDW CV 14.7 LAB L100.1820 35.1-43.9 fl High RDW SD 45.6 LAB L100.1900 150-450 K/mm3 Normal PLT 259 LAB L100.2000 6.2-12.0 fl Normal MPV 11.7 Performed By: #### L100.0500 #### [facility] [address] [place], [address] RENAL PROFILE Collected: 11/12/2017 Status: F Source: [place] 9:53 AM [facility] REPOSITORY TYPE CODE TESTS RESULT OUT OF RANGE REFERENCE UNITS LAB L501.0100 74-106 mg/dL High GLU 169 Result Comment: Fasting Glucose result greater than or equal to 126 mg/dL suggests DIABETES MELLITUS per A.D.A. criteria. Please note revised GLUCOSE reference range effective 2017. LAB L501.1000 7-18 mg/dL High BUN 31 LAB L501.1100 0.70-1.30 mg/dL High CREAT,SERUM 2.29 Result Comment: The validity of the calculated GFR AND GFRAA in patients over 70 years has not been determined. Clinical correlation is essential. LAB L501.1110 >60 mL/min Low EST GFR 31 Result Comment: Non- GFR Calc LAB L501.1115 >60 mL/min Low EST GFR - AA 37 Result Comment: GFR Calc LAB L501.1300 10-20 RATIO Normal BUN/CRE 13.5 LAB L501.1800 3.2-5.0 g/dL Normal ALB 3.5 LAB L501.2200 8.5-10.1 mg/dL CA Normal 9.5 LAB L501.2300 2.5-4.9 mg/dL Normal PHOS 2.9 LAB L501.5300 136-145 mmol/L NA Normal 142 LAB L501.5600 3.5-5.1 mmol/L K Normal 3.8 LAB L501.5900 98-107 mmol/L High CL 109 LAB L501.6100 21.0-32.0 mmol/L Normal CO2 23.0 Performed By: #### L500.3600 #### [facility] [address] [place], [address] PROTEIN+CREATININE Collected: Status: F Source: [place] RATIO,URINE 11/12/2017 9:53 AM [facility] REPOSITORY TYPE CODE TESTS RESULT OUT OF RANGE REFERENCE UNITS LAB L501.1200 NO RANGE EST. mg/dL Normal UR CREAT 136.00 LAB L501.1930 <11.9 mg/dL High 262.0 PROTEIN,UR.R AN. LAB L501.1940 0-200 mg/g CRE High PROT:CRE 1926 RATIO Performed By: #### L501.0900 #### [facility] [address] [place], [address] CNCO Observed: 11/05/2017 Status: COMPLETED Source: [place] 12:00 AM [facility] [place] REPOSITORY Letter Text [facility] [place] Department of Colorectal Surgery Luis Dunn MD [address] [place] [address] November 05, 2017 Chaparro Ku MD [facility] AND Surgery [address] [place] [address] VIA In Basket Re: Bari Romero : [address] Ku, We recently discussed our patient, Bari Romero at the Multidisciplinary Tumor Board Meeting. Attached are the summarized discussion and recommendations. Please feel free to call if you have any questions or concerns. Thank you for allowing us to participate in the care of your patient. Sincerely, Luis Dunn MD (Signed electronically to expedite mailing) cc: Caesar Chavez, DO [address] [facility] [id number] VIA Facsimile: [phone] Bari Romero [address] [place] [address] Colon Cancer Tumor Board Post-Operative Discussion Note ? Date of conference: October 31, 2017 ? ? Presenter/specialty: CORS ? Date of surgery: 10/17/2017 ? Surgical procedure: Laparoscopic total abdominal colectomy with ileosigmoid anastomosis and ?flexible sigmoidoscopy. ? ? Enbloc resection: NA ? Metastectomy: NA ? Margins: not involved ? Lymph Nodes Examined: 26 ? Lymph Nodes Involved: 2 ? Type of Imaging Reviewed: NA ? 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 35 polyps were noted grossly throughout the colon, but more numerous in the right and transverse colon. ?The vast majority of these polyps are serrated (85-90%), with sessile serrated polyps (a couple with focal low-grade dysplasia; at least 2 SSPs are > 1 cm +ve LVI and PNI ? MSI status: MSI-H MMR MSH6 Deficient Adjuvant therapy recommended: Yes ? Clinical Trial Candidate: No ? Tumor Board recommendations 1-Given the # of SSPs and MMR deficient status tumor board recommends genetic counselling 2-Tumor board recommends adjuvant chemotherapy ? Disciplines present: Colorectal Surgery, Medical Oncology, Radiation Oncology, Radiology, Anatomic Pathology and Genetic Counseling ? ? Called the patient and left a message. Cancer answer medical oncology appt and has already seen genetics ? Luis Dunn MD, FACS, FASCRS glass bulb machine adjuster Bobbin Hauler, Department of Colorectal Surgery [place] [phone] ? ? This is the summary of the general discussion provided at tumor board conference. The final recommendations will be made by the primary health car team and the patient after discussing the benefits, risks and alternatives to the various treatment options. PROGRESS Observed: 10/31/2017 Status: COMPLETED Source: [place] 5:41 PM [facility] REPOSITORY HNO ID: [id number] Author: Domi Lopez (Josh) Tiffany Service: (none) Author Type: Fellow Type: Progress Notes Filed: 11/01/2017 8:15 AM Note Text: Colon Cancer Tumor Board Post-Operative Discussion Note Date of conference: October 31, 2017 Presenter/specialty: CORS Date of surgery: 10/17/2017 Surgical procedure: Laparoscopic total abdominal colectomy with ileosigmoid anastomosis and flexible sigmoidoscopy. ? 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 ?The vast majority of these polyps are serrated (85-90%), with sessile serrated polyps (a couple with focal low-grade dysplasia; at least 2 SSPs are > 1 cm +ve LVI and PNI MSI status: MSI-H MMR MSH6 Deficient Adjuvant therapy recommended: Yes Clinical Trial Candidate: No Tumor Board recommendations 1-Given the # of SSPs and MMR deficient status tumor board recommends genetic counselling 2-Tumor board recommends adjuvant chemotherapy Disciplines present: Colorectal Surgery, Medical Oncology, Radiation Oncology, Radiology, Anatomic Pathology and Genetic Counseling Called the patient and left a message. Cancer answer medical oncology appt and has already seen genetics Luis Dunn MD, JOSH HOPKINS glass bulb machine adjuster Bobbin Hauler, Department [place] [address] This is the summary of the general discussion provided at tumor board conference. The final recommendations will be made by the primary health car team and the patient after discussing the benefits, risks and alternatives to the various treatment options. CNDS Observed: 10/20/2017 Status: COMPLETED Source: [place] 1:18 PM [facility] REPOSITORY HNO ID: [id number] Author: Daya Herrera (Pa) Service: Colorectal Author Type: Physician [place] Type: Discharge Summaries Filed: 10/20/2017 7:06 PM Note Text: Attestation signed by Luis Dunn at 10/21/2017 7:56 AM Will see in f/u in clinic Luis Dunn MD, JOSH HOPKINS glass bulb machine adjuster Bobbin Hauler, Department [place] [address] DISCHARGE SUMMARY PATIENT NAME: Bari Romero ADMISSION DATE: 10/17/2017 DISCHARGE DATE: 10/20/2017 Attending Physician: Luis Dunn Reason for Hospitalization: Mr Romero is a 61 year old male with a history of rectal bleeding and anemia. He underwent a colonoscopy that demonstrated multiple polyps that were adenomatous in the descending colon- sigmoid colon junction with a large mass in the hepatic flexure that was biopsy proven adenocarcinoma. He underwent evaluation for metastatic disease and now presented for definitive surgical management with Dr. Dunn. Principal Problem: Colon cancer (HCC) Active Problems: Obesity, Class I, BMI 30-34.9 CKD (chronic kidney disease) stage 4, GFR 15-29 ml/min (HCC) Type 2 diabetes mellitus with stage 4 chronic kidney disease, with long-term current use of insulin (HCC) Essential hypertension Post-op pain Resolved Problems: * No resolved hospital problems. * Operations During Hospitalization: Laparoscopic total abdominal colectomy with ileosigmoid anastomosis and flexible sigmoidoscopy. Procedures During Hospitalization: Intubation for surgery 12-lead EKG Hospital Course: is a 61 year old male who came to the hospital to have surgery with Dr. Luis Dunn. His surgery was uneventful and afterwards,he was transferred to a regular nursing floor. His pain was controlled with oral and IV medication and his intake and output were closely monitored. His diet was advanced as tolerated.His Hoff catheter was removed on postoperative day (POD) 1 and he was able to void. During his stay he experienced intermittent episodes of elevated blood pressure.He is to follow up with his primary care provider for evaluation and any necessary adjustments regarding your BP medication. He was instructed to check BP at least once daily using home blood pressure monitoring device. DVT prophylaxis was managed by Heparin 5000 units BID and intermittent compression stockings. His electrolytes were monitored with daily labs and replaced as needed. Once his pain was controlled with oral medication, he was tolerating a GI soft diet, and his bowels were functioning appropriately, he was deemed fit for discharge. He is follow up with Dr. Dunn in the clinic in 4-6 weeks. He may resume home Plavix 5 days after surgery. Labs and Procedures Pending at Discharge: Pathology Results (surgical pathology ) Consulting Teams During Hospitalization: None Patient Condition @ Discharge: Stable Discharge Disposition: Home/Self Care Postoperative Conditions: not applicable Information Provided to Patient: patient was provided with discharge instruction instructions Discharge Medications: Discharge Medication List as of 10/20/2017 12:39 PM START taking these medications acetaminophen (TYLENOL) 325 mg tablet Take 1-2 tablets by mouth every 6 hours as needed for Pain. OTC CONTINUE these medications which have NOT CHANGED sodium bicarbonate 650 mg tablet Take 1 tablet by mouth three times daily. Med Update, Long-term aspirin, enteric coated (ECOTRIN LOW STRENGTH) 81 mg EC tablet Take 1 tablet by mouth once daily. Med Update, Long-term albuterol HFA (PROAIR HFA) 90 mcg/actuation inhaler 2 Puffs every 6 hours as needed for Wheezing/Shortness of Breath. Take as directed Med Update, Long-term NOVOLOG FLEXPEN U-100 INSULIN 100 unit/mL inpn Inject 10-40 Units subcutaneously three times daily before meals. Sliding Scale Med Update, R-0, JOCELYN, Long-term nitroglycerin sublingual (NITROQUICK) 0.4 mg SL tablet Dissolve 1 tablet under the tongue as needed for Chest Pain. If no pain relief call 911. Med Update, Long-term simvastatin (ZOCOR) 80 mg tablet Take 1 tablet by mouth once daily. Med Update, Long-term metoprolol succinate ER (TOPROL XL) 50 mg 24 hr tablet Take 1 tablet by mouth once daily. Med Update, Long-term pantoprazole DR (PROTONIX) 40 mg tablet Take 1 tablet by mouth once daily. Med Update, Long-term tamsulosin ER (FLOMAX) 0.4 mg cap Take 1 capsule by mouth once daily. Med Update, Long-term albuterol (PROVENTIL) 2.5 mg /3 mL (0.083 %) nebulizer solution inhale 1 vial in nebulizer every 4 to 6 hours if needed for shortness of breath or wheezing Historical Med, R-0, Long-term allopurinol (ZYLOPRIM) 300 mg tablet Take 300 mg by mouth once daily. Historical Med, R-0 CONTOUR NEXT TEST STRIPS test strip as needed. Historical Med, R-0, JOCELYN cilostazol (PLETAL) 100 mg tablet Take 100 mg by mouth once daily. Historical Med, R-0 COLCRYS 0.6 mg tablet Take 0.6 mg by mouth as needed. Historical Med, R-0, JOCELYN, Long-term diazePAM (VALIUM) 10 mg tablet Take 10 mg by mouth as needed. Historical Med, R-0 VITAMIN D 50,000 unit capsule Take 50,000 Units by mouth once each week. Historical Med, R-0, JOCELYN, Long-term ferrous sulfate 325 mg (65 mg iron) tablet Take 1 tablet by mouth once daily. Historical Med, R-0 finasteride (PROSCAR) 5 mg tablet Take 5 mg by mouth once daily. Historical Med, R-0 hydrALAZINE (APRESOLINE) 25 mg tablet Take 25 mg by mouth three times daily. Historical Med, R-0, Long-term TRESIBA FLEXTOUCH U-200 200 unit/mL (3 mL) injection Inject 30 Units subcutaneously once daily. Per pt. 10/09/17 Historical Med, R-0, JOCELYN, Long-term isosorbide mononitrate ER (IMDUR) 30 mg 24 hr tablet Take 30 mg by mouth once daily. Historical Med, R-0, Long-term oxyCODONE IR (ROXICODONE) 5 mg immediate release tablet Take 5 mg by mouth twice daily as needed. Historical Med, R-0 trimethoprim-polymyxin eye drops (POLYTRIM) ophthalmic solution place 1 drop into left eye four times a day Historical Med, R-0 STOP taking these medications neomycin 500 mg tablet Comments: Reason for Stopping: metroNIDAZOLE (FLAGYL) 500 mg tablet Comments: Reason for Stopping: Future Appointments: Future Appointments Date Time Provider Department Center 11/18/2017 10:15 AM Luis Duffy BLDG SIGNATURE: Daya Herrera PA-C PAGER: [phone] DATE: October 20, 2017 TIME: 6:59 PM CASE MANAGEM Observed: 10/20/2017 Status: COMPLETED Source: [place] 11:30 AM [facility] REPOSITORY [facility] ID: [id number] Author: Clara Babb Service: Care Management Author Type: (none) Type: Care Mgt Progress Note Filed: 10/20/2017 11:30 AM Note Text: CARE MANAGEMENT PROGRESS NOTE SERVICE DATE: 10/20/2017 SERVICE TIME: 11:20 AM LOS: 3 days IM letter given to patient on 10/20/17. SIGNATURE: Clara Babb Surface Grinder Tender PATIENT NAME: Bari Romero DATE: October 20, 2017 TIME: 11:30 AM PAGER/CONTACT #: [phone] CASE MGT INIT Observed: 10/20/2017 Status: COMPLETED Source: [place] 11:21 AM [facility] REPOSITORY [facility] ID: [id number] Author: Preethi ColoradoRn) MARY Todd Service: Care Management Author Type: Registered Nurse Type: Care Mgt Initial Assessment Filed: 10/20/2017 11:26 AM Note Text: CARE MANAGEMENT: ASSESSMENT AND DISCHARGE PLAN SERVICE DATE: 10/20/2017 SERVICE TIME: 11:21 AM PRIMARY CARE PHYSICIAN: Caesar Chavez DO ADMISSION STATUS: Inpatient Needs Prior to Discharge: (medical clearance) 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 Last Admission Date: none Is this Within the Past 30 days? No Advance Directive: Current Advance Directive: Living Will In Chart: No Log Washer Assisted with AD Completion: (pt dont have copies) Health Literacy: 1. How often do you need to have someone help you when you read instructions, pamphlets, or other written material from your doctor or pharmacy? Never - 1 2. How confident are you filling out medical forms by yourself? Extremely - 1 If Patient scores > 3 on either question, the following interventions were put into place: Patient did not score > 3 FUNCTIONAL AND COGNITIVE/BEHAVIORAL PRIOR TO ADMISSION: Baseline Mental Status: Alert AND Oriented, Person, Place , Time and Situation Functional Status: Independent Does Patient Currently Receive Any Community Services or Home Care? None Equipment Prior to Admission: None Has the Patient Been in a Longterm Facility in the Past 30 days? No SOCIAL: Living Arrangement: Home Lives With: Spouse Financial Resources: Disabled and Unemployed Primary Contact: Extended Emergency Contact Information Primary Emergency Contact: HeatherJoanna Mobile Relation: Spouse Supportive: Yes Other Important Patient Contacts: None Caregiver Assessment: Caregiver is ready, willing and able to meet the patient's needs as recommended by the inter-professional team? no home needs anticipated at the time of discharge home Patient's transition needs and plan for meeting these needs: follow discharge instructions. Follow up with PCP. Does the patient have an acute stroke diagnosis, or has the patient had a stroke during this admission? No Medication Adherence: I am convinced of the importance of my prescription medication: Agree completely - 0 I worry that my prescription medication will do more harm than good to me Disagree completely - 0 I feel financially burdened by my eye-mf-jruusn expenses for my prescription medication: Disagree completely - 0 Patient is categorized as low risk < 2 Are you interested in bedside delivery of your medications? No Food Concerns: In the Last Month, Have You had Trouble Getting Food? No trouble getting food During the Last Month, Have You Worried Whether Your Food Would Run Out Before You Had Enough Money to Buy More? No Is the Patient Psychosocially Complex? No ASSESSMENT AND PLAN: Medical Needs: 2 or more chronic diseases Psychosocial Needs: None FREEDOM OF CHOICE EXPLAINED: N/A POTENTIAL TRANSITION PLANS Home self care POD #3 Laparoscopic total abdominal colectomy with ileosigmoid anastomosis and ?flexible sigmoidoscopy Per morning rounds with Daya OBRINE, anticipated discharge today and plans to follow up with PCP for HTN. CM to bedside to introduce self, CM role and to discuss discharge planning and home care needs. Plan to discharge home once medically stable. Questions and concerns addressed. Pt reports being independent at home, and denies the need for assistance. CM will continue to follow and update. Family will provide transportation home. SIGNATURE: Preethi Todd RN PATIENT NAME: Bari Romero DATE: October 20, 2017 TIME: 11:21 AM PAGER/CONTACT #: [phone] PROGRESS Observed: 10/20/2017 Status: COMPLETED Source: [place] 11:15 AM [facility] REPOSITORY O ID: [id number] Author: Daya Herrera (Pa) Service: Colorectal Author Type: Physician [place] Type: Progress Notes Filed: 10/20/2017 11:16 AM Note Text: SERVICE DATE: 10/20/2017 SERVICE TIME: 11:15 AM COLORECTAL SURGERY PROGRESS NOTE POD #3 Laparoscopic total abdominal colectomy with ileosigmoid anastomosis and flexible sigmoidoscopy. Subjective INTERVAL HPI and PERTINENT ROS: Intermittently hypertensive throughout the night, already on his home BP medications. Asymptomatic during episodes of HTN. Tolerating GI diet. Pain control adequate. Reports passing flatus and having BMs. MEDICATIONS: Current hospital medications: insulin lispro injection (rapid acting) (HumaLOG) SUBCUTANEOUS w MEALS AND HS labetalol 5 mg injection syringe (NORMODYNE) 5 mg INTRAVENOUS q 2 H PRN metoprolol succinate ER 50 mg tab(s) (TOPROL XL) 50 mg ORAL DAILY hydrALAZINE 25 mg tab(s) (APRESOLINE) 25 mg ORAL TID [MAR Hold due to Transfer] lidocaine 10 mg/mL (1 %) 1-2 mg injection (XYLOCAINE) 0.1-0.2 mL INTRADERMAL PRN ondansetron (PF) 4 mg injection (ZOFRAN) 4 mg INTRAVENOUS q 6 H PRN acetaminophen 1,000 mg tab(s) (TYLENOL) 1,000 mg ORAL q 6 H gabapentin 300 mg cap(s) (NEURONTIN) 300 mg ORAL q 8 H diazePAM 2 mg tab(s) (VALIUM) 2 mg ORAL q 8 H PRN oxyCODONE IR 5-10 mg tab(s) (ROXICODONE) 5-10 mg ORAL q 4 H PRN HYDROmorphone 0.2 mg injection (DILAUDID) 0.2 mg INTRAVENOUS q 3 H PRN alvimopan 12 mg cap(s) (ENTEREG) 12 mg ORAL BID heparin 5,000 Units injection 5,000 Units SUBCUTANEOUS q 8 H simvastatin 80 mg tab(s) (ZOCOR) 80 mg ORAL DAILY finasteride 5 mg tab(s) (PROSCAR) 5 mg ORAL DAILY tamsulosin ER 0.4 mg cap(s) (FLOMAX) 0.4 mg ORAL DAILY albuterol 2.5 mg /3 mL (0.083 %) 2.5 mg (PROVENTIL) 2.5 mg INHALATION q 4 H PRN trimethoprim-polymyxin eye drops 1 Drop ophthalmic drops (POLYTRIM) 1 Drop BOTH EYES q [address] 40 mg tab(s) (PROTONIX) 40 mg ORAL DAILY dextrose 40 % 15 g 15 g ORAL PRN glucagon 1 mg injection (GLUCAGEN) 1 mg INTRAMUSCULAR PRN dextrose 50% in water 25 mL syringe 12.5 g INTRAVENOUS PRN aspirin, enteric coated 81 mg tab(s) (ASPIRIN, ENTERIC COATED) 81 mg ORAL DAILY Objective PHYSICAL EXAM: BP 166/81 Pulse 92 Temp 36.9 ?C (98.5 ?F) (Oral) Resp 18 Ht 185.4 cm (6' 0.99) Wt 108 kg (238 lb 1.6 oz) SpO2 94% BMI 31.42 kg/m? GENERAL: Alert and oriented times 3, in no acute distress. SKIN: Skin color, texture, turgor normal, no suspicious rashes or lesions. HEAD: Normal EARS: External ears normal. OROPHARYNX: Mucosa moist. NECK: Normal size. BACK: Motor and sensory appear to be normal. ABDOMEN: abdomen soft, nontender, incisions c/d/i EXTREMITIES: no peripheral edema NEURO: Gait normal. Sensation grossly intact. No skin breakdown noted. Date 10/20/17 07 - 10/21/17 0659 Shift 1016-1201 9113-0214 5781-9507 24 Hour Total I N T A K E Shift Total O U T P U T Urine 375 375 Shift Total 375 375 Weight (kg) 108 108 108 108 Lines, Drains, and Airways Line Peripheral 10/19/17 2215 Assessment Short Right Forearm 22 Gauge less than 1 day Reviewed lines, drains, AND airways. Need to be continued until time of d/c DATA: Diagnostic tests reviewed for today's visit: Most recent labs LABS: CBC, Coags, BMP, Mg, Phos Recent Labs 10/17/17 2331 10/17/17 2330 10/17/17 1418 WBC 7.40 7.33 -- HB 9.2* 9.2* -- HCT 29.4* 29.7* -- PLT 253 263 -- NA 141 141 -- K 4.0 4.1 -- CHLOR 103 101 -- CO2 29 28 -- BUN 26* 25* -- CREAT 2.36* 2.32* -- GLUC 190* 187* -- IC -- -- 1.24 CA 8.9 8.7 -- MG 2.1 2.1 -- P 4.3 4.2 -- *A review of daily goals, interventions, and plan of care with the multidisciplinary team and patient has been conducted. The patient?s concerns have been addressed and he/she agrees to proceed with today?s plan of care. CARE COORDINATION: No Patient Care Coordination Note on file. ASSESSMENT AND PLAN Assessment AND Plan, all Hosp Problems Active Hospital Problems as of 10/20/2017 Noted - Resolved Hospital Obesity, Class I, BMI 30-34.9 10/03/2017 - Present Current Assessment AND Plan PLAN: -nutrition consulted * (Principal)Colon cancer ([facility]) 10/03/2017 - Present Current Assessment AND Plan Assessment: 61 y/o male hx right colon cancer s/p Laparoscopic total abdominal colectomy with ileosigmoid anastomosis and flexible sigmoidoscopy. PLAN: -continue GI soft diet -positive bowel function -Strict IANDO's -encourage OOB and ambulation -encourage incentive spirometer use -anticipated d/c today CKD (chronic kidney disease) stage 4, GFR 15-29 ml/min ([facility]) 10/09/2017 - Present Current Assessment AND Plan PLAN: -avoid nephrotoxic medications -daily BMP to monitor kidney function Type 2 diabetes mellitus with stage 4 chronic kidney disease, with long-term current use of insulin ([facility]) 10/09/2017 - Present Current Assessment AND Plan PLAN: -continue SSI for blood glucose control in setting of DM2 -AC/HS accuchecks Essential hypertension 10/09/2017 - Present Current Assessment AND Plan PLAN: hx of HTN on home hydralazine 25mg TID and metop ER 50mg daily. Intermittent SBP 150s-180s during vital checks inpatient. Baseline SBP 130s -continue home BP meds -patient reports he will schedule an appt with his PCP this week to assess any necessary BP medication adjustments -patient reports he has a home BP monitor and will check his BP daily Post-op pain 10/20/2017 - Present Current Assessment AND Plan PLAN: -continue PO medications PRN pain Medication and Non-Pharmacologic VTE Prophylaxis/Anticoagulants Anticoagulant AND Antiplatelet Medications Start Dose Route Frequency Ordered Stop 10/17/17 1800 heparin 5,000 Units injection (Surgical Moderate Risk ) 5,000 Units SUBCUTANEOUS EVERY 8 HOURS 10/17/17 1740 -- 10/17/17 1800 aspirin, enteric coated 81 mg tab(s) (ASPIRIN, ENTERIC COATED) 81 mg ORAL DAILY 10/17/17 1732 -- 10/17/17 1745 pneumatic compression stockings ([place] 10/17/17 1745 activity - mobilize patient ([place]) 10/17/17 0630 pneumatic compression stockings ([place]) VTE Prophylaxis: VTE prophylaxis appropriate Plan of care discussed with: Attending ANTICIPATED D/C TODAY SIGNATURE: Daya Herrera PA-C PATIENT NAME: Bari Romero DATE: October 20, 2017 TIME: 11:15 AM PAGER/CONTACT #: [phone] NURSING PROG Observed: 10/19/2017 Status: COMPLETED Source: [place] 10:00 PM [facility] REPOSITORY [facility] ID: [id number] Author: Vanessa ColoradoRn) MARY Sheffield Service: (none) Author Type: Registered Nurse Type: Nursing Progress Note Filed: 10/20/2017 4:55 AM Note Text: Nursing Progress Note Patient Name: Bari Romero Patient Location: H050 [id number]/H050-04 Daily Note: 2200 Pt. B/P 191/89 automatic and 188/88 manual after hydralazine. other VSS Pt. asymptomatic. Paged salesperson books [facility]. Will continue to monitor 2226 Labetalol ordered q2h prn for B/P over 160 systolic, Pt. B/P 150s systolic after administration. Will continue to monitor. This note was completed by: Vanessa Sheffield RN NURSING PROG Observed: 10/19/2017 Status: COMPLETED Source: [place] 4:11 PM [facility] REPOSITORY [facility] ID: [id number] Author: Alina ColoradoRn) O[place], RN Service: (none) Author Type: Registered Nurse Type: Nursing Progress Note Filed: 10/19/2017 7:55 PM Note Text: Nursing Progress Note Patient Name: Bari Romero Patient Location: H050 [id number]/H050-04 Daily Note: 1611: Patient had large bowel movement with some blood noted. [facility] salesperson books notified and asked about a stool sample. 1743: Manual BP of 170/88, patient asymptomatic. Dr. Escobar notified, no new orders at this time. This note was completed by: Alina Morrell RN PROGRESS Observed: 10/19/2017 Status: COMPLETED Source: [place] 12:13 PM [facility] REPOSITORY [facility] ID: [id number] Author: Jessi Grossman (Fel) Service: Colorectal Author Type: Fellow Type: Progress Notes Filed: 10/19/2017 12:14 PM Note Text: SERVICE DATE: 10/19/2017 SERVICE TIME: 12:13 PM COLORECTAL SURGERY PROGRESS NOTE POD #2 Subjective INTERVAL HPI and PERTINENT ROS: No events overnight. Hypertensive yesterday, restarted on home BP meds. Tolerating a diet with flatus and BM. Pain controlled. MEDICATIONS: Current hospital medications: insulin lispro injection (rapid acting) (HumaLOG) SUBCUTANEOUS w MEALS AND HS metoprolol succinate ER 50 mg tab(s) (TOPROL XL) 50 mg ORAL DAILY hydrALAZINE 25 mg tab(s) (APRESOLINE) 25 mg ORAL TID [MAR Hold due to Transfer] lidocaine 10 mg/mL (1 %) 1-2 mg injection (XYLOCAINE) 0.1-0.2 mL INTRADERMAL PRN ondansetron (PF) 4 mg injection (ZOFRAN) 4 mg INTRAVENOUS q 6 H PRN acetaminophen 1,000 mg tab(s) (TYLENOL) 1,000 mg ORAL q 6 H gabapentin 300 mg cap(s) (NEURONTIN) 300 mg ORAL q 8 H diazePAM 2 mg tab(s) (VALIUM) 2 mg ORAL q 8 H PRN oxyCODONE IR 5-10 mg tab(s) (ROXICODONE) 5-10 mg ORAL q 4 H PRN HYDROmorphone 0.2 mg injection (DILAUDID) 0.2 mg INTRAVENOUS q 3 H PRN alvimopan 12 mg cap(s) (ENTEREG) 12 mg ORAL BID heparin 5,000 Units injection 5,000 Units SUBCUTANEOUS q 8 H simvastatin 80 mg tab(s) (ZOCOR) 80 mg ORAL DAILY finasteride 5 mg tab(s) (PROSCAR) 5 mg ORAL DAILY tamsulosin ER 0.4 mg cap(s) (FLOMAX) 0.4 mg ORAL DAILY albuterol 2.5 mg /3 mL (0.083 %) 2.5 mg (PROVENTIL) 2.5 mg INHALATION q 4 H PRN trimethoprim-polymyxin eye drops 1 Drop ophthalmic drops (POLYTRIM) 1 Drop BOTH EYES q [address] 40 mg tab(s) (PROTONIX) 40 mg ORAL DAILY dextrose 40 % 15 g 15 g ORAL PRN glucagon 1 mg injection (GLUCAGEN) 1 mg INTRAMUSCULAR PRN dextrose 50% in water 25 mL syringe 12.5 g INTRAVENOUS PRN aspirin, enteric coated 81 mg tab(s) (ASPIRIN, ENTERIC COATED) 81 mg ORAL DAILY Objective PHYSICAL EXAM: BP 139/71 Pulse 86 Temp 36.5 ?C (97.7 ?F) (Oral) Resp 18 Ht 185.4 cm (6' 0.99) Wt 108 kg (238 lb 1.6 oz) SpO2 100% BMI 31.42 kg/m? GENERAL: Alert and oriented times 3, in no acute distress. SKIN: Skin color, texture, turgor normal, no suspicious rashes or lesions. HEAD: Normal EYES: Extraocular movements are intact. EARS: External ears normal. OROPHARYNX: Mucosa moist. NECK: Normal size. BACK: Motor and sensory appear to be normal. LUNGS: Clear to auscultation, no wheezing or rhonchi. CARDIAC: RRR without murmur, gallop, or rubs. No ectopy. ABDOMEN: Soft, non-tender, non-distended. Incisions clean dry and intact. EXTREMITIES: Warm, no edema, pulses palpable. MUSCULOSKELETAL: Spine range of motion normal. Muscular strength intact, PERIPHERAL PULSES: Normal NEURO: Gait normal. Sensation grossly intact. No skin breakdown noted. Date 10/19/17 0700 - 10/20/17 0659 Shift 9922-3342 8451-5311 6910-6467 24 Hour Total I N T A K E PO 540 540 Shift Total 540 540 O U T P U T Shift Total Weight (kg) 108 108 108 108 Lines, Drains, and Airways Line Peripheral 10/17/17 0704 Left Hand 20 Gauge 2 days DATA: Diagnostic tests reviewed for today's visit: Most recent labs and imaging results. LABS: CBC, Coags, BMP, Mg, Phos Recent Labs 10/17/17 2331 10/17/17 2330 10/17/17 1418 10/17/17 1103 10/17/17 0848 10/17/17 0821 10/17/17 0805 WBC 7.40 7.33 -- -- 7.09 -- -- HB 9.2* 9.2* -- -- 7.8* -- -- HCT 29.4* 29.7* -- -- 26.3* -- -- PLT 253 263 -- -- 221 -- -- NA 141 141 -- -- -- -- 141 K 4.0 4.1 -- -- -- -- 3.7 CHLOR 103 101 -- -- -- -- 101 CO2 29 28 -- -- -- -- 25 BUN 26* 25* -- -- -- -- 28* CREAT 2.36* 2.32* -- -- -- -- 2.31* GLUC 190* 187* -- -- -- -- 224* IC -- -- 1.24 1.17 -- 1.23 -- CA 8.9 8.7 -- -- -- -- 9.0 MG 2.1 2.1 -- -- -- -- 1.8 P 4.3 4.2 -- -- -- -- -- *A review of daily goals, interventions, and plan of care with the multidisciplinary team and patient has been conducted. The patient?s concerns have been addressed and he/she agrees to proceed with today?s plan of care. CARE COORDINATION: No Patient Care Coordination Note on file. ASSESSMENT AND PLAN Assessment AND Plan, all Hosp Problems Active Hospital Problems as of 10/19/2017 Noted - Resolved * (Principal)Colon cancer ([facility]) 10/03/2017 - Present Current Assessment AND Plan Assessment: colon cancer PLAN: - status post lap TAC - Gi diet - OOB - plan for discharge tomorrow Medication and Non-Pharmacologic VTE Prophylaxis/Anticoagulants Anticoagulant AND Antiplatelet Medications Start Dose Route Frequency Ordered Stop 10/17/17 1800 heparin 5,000 Units injection (Surgical Moderate Risk ) 5,000 Units SUBCUTANEOUS EVERY 8 HOURS 10/17/17 1740 -- 10/17/17 1800 aspirin, enteric coated 81 mg tab(s) (ASPIRIN, ENTERIC COATED) 81 mg ORAL DAILY 10/17/17 1732 -- 10/17/17 1745 pneumatic compression stockings ([place]) 10/17/17 1745 activity - mobilize patient ([place]) 10/17/17 0630 pneumatic compression stockings ([place]) VTE Prophylaxis: VTE prophylaxis appropriate Plan of care discussed with: Attending SIGNATURE: Jessi Grossman MD PATIENT NAME: Bari Romero DATE: October 19, 2017 TIME: 12:13 PM PAGER/CONTACT #: [phone] PROGRESS Observed: 10/19/2017 Status: COMPLETED Source: [place] 11:04 AM [facility] REPOSITORY [facility] ID: [id number] Author: Kennedy Tan Service: Colorectal Author Type: Physician Type: Progress Notes Filed: 10/19/2017 11:06 AM Note Text: COLORECTAL SURGERY POSTOP PROGRESS NOTE SERVICE DATE: 10/19/2017 SERVICE TIME: 9am Seen and examined. Discussed with Colorectal Fellow. Her notes to follow. Pt comfortable. Bowels working. Pain controlled. Troponins - plateau and attributed to CKD. Plan: Continue GIsoft diet Stop IVF Aim to discharge tomorrow. All questions answered, patient clear of management plan. ANTONIO TAN MD [facility] Clinical Associate. NURSING PROG Observed: 10/19/2017 Status: COMPLETED Source: [place] 4:18 AM [facility] REPOSITORY [facility] ID: [id number] Author: Vanessa (Rn) MARY Sheffield Service: (none) Author Type: Registered Nurse Type: Nursing Progress Note Filed: 10/19/2017 6:52 AM Note Text: Nursing Progress Note Patient Name: Bari Romero Patient Location: [place] [address] [address] Daily Note:2030 Pt. B/P systolic 170s after metoprolol administration. [facility] fellow at bedside. Orders for home dose of hydralazine given. Pt. B/P 150s systolic following administration. 0613 Pt. B/P 169/81 Paged [facility] salesperson books. No orders at this time 0645 Paged and spoke with Dr. Víctor Escobar (Director External Communications), no orders at this time, Will see pt. Shortly. This note was completed by: Vanessa Sheffield RN PROGRESS Observed: 10/18/2017 Status: COMPLETED Source: [place] 6:49 PM [facility] REPOSITORY [facility] ID: [id number] Author: Alina ColoradoRn) MARY Morrell Service: (none) Author Type: Registered Nurse Type: Progress Notes Filed: 10/18/2017 6:49 PM Note Text: Nursing Progress Note Vital Traffic Signal Mechanic Assessment Note Patient Name: Bari Romero Patient Location: H050 H050-04 Patient Vitals in the past 4 hrs: 10/18/17 1833, BP:187/90, Pulse:78 10/18/17 1734, BP:184/88, Temp:36.5 ?C (97.7 ?F), Temp src:Oral, Pulse:82, Resp:18, SpO2:99 % Status Change Related to: Cardiac Issues (See Nursing Clinical Assessment For Details) The Following People Were Notified: Caregiver/Provider: Dr. Hays aware See Documentation Related to: Continuous Monitoring;Medications Additional Comments : [facility] salesperson books notified, metop reordered as AM dose was held. Will continue to monitor. This note was completed by: Alina Morrell RN PROGRESS Observed: 10/18/2017 Status: COMPLETED Source: [place] 5:47 PM [facility] REPOSITORY [facility] ID: [id number] Author: Alina ColoradoRn) MARY Morrell Service: (none) Author Type: Registered Nurse Type: Progress Notes Filed: 10/18/2017 5:48 PM Note Text: Nursing Progress Note Vital Traffic Signal Mechanic Assessment Note Patient Name: Bari Romero Patient Location: H050 /H050-04 Patient Vitals in the past 4 hrs: 10/18/17 1734, BP:184/88, Temp:36.5 ?C (97.7 ?F), Temp src:Oral, Pulse:82, Resp:18, SpO2:99 % Status Change Related to: Cardiac Issues (See Nursing Clinical Assessment For Details) The Following People Were Notified: Leaf Fat Scraper/Provider: Dr. Hays notified See Documentation Related to: Continuous Monitoring Additional Comments : [facility] salesperson books notified, no new orders at this time. This note was completed by: Alina Morrell RN NURSING PROG Observed: 10/18/2017 Status: COMPLETED Source: [place] 1:25 PM [facility] REPOSITORY [facility] ID: [id number] Author: Alina Morrell RN Service: (none) Author Type: Registered Nurse Type: Nursing Progress Note Filed: 10/18/2017 5:40 PM Note Text: Nursing Progress Note Patient Name: Bari Romero Patient Location: [place] [address] Daily Note: 1324: Urgent troponin called to unit (0.118). Patient denies chest pain, has been elevated since preoperatively and in PACU, Dr. Hays notified. 1451: Patient voided 125cc out for shift, has not voided since hoff removal late this morning, has a couple more hours. Bladder scanned for 87cc, Dr. Hays notified. 1739: Manual BP 184/88, patient denies chest pain/dizziness. Dr. Hays notified. This note was completed by: Alina Morrell RN PROGRESS Observed: 10/18/2017 Status: COMPLETED Source: [place] 1:21 PM [facility] REPOSITORY HNO ID: [id number] Author: Jessi Grossman (Fel) Service: Colorectal Author Type: Fellow Type: Progress Notes Filed: 10/18/2017 1:22 PM Note Text: SERVICE DATE: 10/18/2017 SERVICE TIME: 1:21 PM COLORECTAL SURGERY PROGRESS NOTE POD #1 s/p laparoscopic subtotal colectomy Subjective INTERVAL HPI and PERTINENT ROS: No acute events overnight. Tolerating liquid diet, denies nausea or vomiting. MEDICATIONS: Current hospital medications: [MAR Hold due to Transfer] lidocaine 10 mg/mL (1 %) 1-2 mg injection (XYLOCAINE) 0.1-0.2 mL INTRADERMAL PRN [MAR Hold due to Transfer] lactated ringers infusion 50 mL/hr INTRAVENOUS CONTINUOUS lactated ringers infusion 0-75 mL/hr INTRAVENOUS CONTINUOUS ondansetron (PF) 4 mg injection (ZOFRAN) 4 mg INTRAVENOUS q 6 H PRN acetaminophen 1,000 mg tab(s) (TYLENOL) 1,000 mg ORAL q 6 H gabapentin 300 mg cap(s) (NEURONTIN) 300 mg ORAL q 8 H diazePAM 2 mg tab(s) (VALIUM) 2 mg ORAL q 8 H PRN oxyCODONE IR 5-10 mg tab(s) (ROXICODONE) 5-10 mg ORAL q 4 H PRN HYDROmorphone 0.2 mg injection (DILAUDID) 0.2 mg INTRAVENOUS q 3 H PRN alvimopan 12 mg cap(s) (ENTEREG) 12 mg ORAL BID heparin 5,000 Units injection 5,000 Units SUBCUTANEOUS q 8 H simvastatin 80 mg tab(s) (ZOCOR) 80 mg ORAL DAILY finasteride 5 mg tab(s) (PROSCAR) 5 mg ORAL DAILY tamsulosin ER 0.4 mg cap(s) (FLOMAX) 0.4 mg ORAL DAILY albuterol 2.5 mg /3 mL (0.083 %) 2.5 mg (PROVENTIL) 2.5 mg INHALATION q 4 H PRN metoprolol succinate ER 50 mg tab(s) (TOPROL XL) 50 mg ORAL DAILY trimethoprim-polymyxin eye drops 1 Drop ophthalmic drops (POLYTRIM) 1 Drop BOTH EYES q [address] 40 mg tab(s) (PROTONIX) 40 mg ORAL DAILY dextrose 40 % 15 g 15 g ORAL PRN glucagon 1 mg injection (GLUCAGEN) 1 mg INTRAMUSCULAR PRN dextrose 50% in water 25 mL syringe 12.5 g INTRAVENOUS PRN insulin lispro injection (rapid acting) (HumaLOG) SUBCUTANEOUS w MEALS aspirin, enteric coated 81 mg tab(s) (ASPIRIN, ENTERIC COATED) 81 mg ORAL DAILY Objective PHYSICAL EXAM: BP 148/68 Pulse 73 Temp 36.4 ?C (97.5 ?F) (Oral) Resp 16 Ht 185.4 cm (6' 0.99) Wt 108 kg (238 lb 1.6 oz) SpO2 99% BMI 31.42 kg/m? GENERAL: Alert and oriented times 3, in no acute distress. SKIN: Skin color, texture, turgor normal, no suspicious rashes or lesions. HEAD: Normal EYES: Extraocular movements are intact. EARS: External ears normal. OROPHARYNX: Mucosa moist. NECK: Normal size. BACK: Motor and sensory appear to be normal. LUNGS: Clear to auscultation, no wheezing or rhonchi. CARDIAC: RRR without murmur, gallop, or rubs. No ectopy. ABDOMEN: Soft, non-tender, non-distended. Incisions clean dry and intact. EXTREMITIES: Warm, no edema, pulses palpable. MUSCULOSKELETAL: Spine range of motion normal. Muscular strength intact, PERIPHERAL PULSES: Normal NEURO: Gait normal. Sensation grossly intact. No skin breakdown noted. Date 10/18/17 0700 - 10/19/17 0659 Shift 7252-7664 6921-1524 3775-9294 24 Hour Total I N T A K E PO 690 690 Shift Total 690 690 O U T P U T Urine 125 125 Stool 200 200 Shift Total 325 325 Weight (kg) 108 108 108 108 Lines, Drains, and Airways Line Peripheral 10/17/17 0704 Left Hand 20 Gauge 1 day Reviewed lines, drains, airways. Will discuss with nurse and discontinue hoff DATA: Diagnostic tests reviewed for today's visit: Most recent labs and imaging results. LABS: CBC, Coags, BMP, Mg, Phos Recent Labs 10/17/17 2331 10/17/17 2330 10/17/17 1418 10/17/17 1103 10/17/17 0848 10/17/17 0821 10/17/17 0805 WBC 7.40 7.33 -- -- 7.09 -- -- HB 9.2* 9.2* -- -- 7.8* -- -- HCT 29.4* 29.7* -- -- 26.3* -- -- PLT 253 263 -- -- 221 -- -- NA 141 141 -- -- -- -- 141 K 4.0 4.1 -- -- -- -- 3.7 CHLOR 103 101 -- -- -- -- 101 CO2 29 28 -- -- -- -- 25 BUN 26* 25* -- -- -- -- 28* CREAT 2.36* 2.32* -- -- -- -- 2.31* GLUC 190* 187* -- -- -- -- 224* IC -- -- 1.24 1.17 -- 1.23 -- CA 8.9 8.7 -- -- -- -- 9.0 MG 2.1 2.1 -- -- -- -- 1.8 P 4.3 4.2 -- -- -- -- -- *A review of daily goals, interventions, and plan of care with the multidisciplinary team and patient has been conducted. The patient?s concerns have been addressed and he/she agrees to proceed with today?s plan of care. CARE COORDINATION: No Patient Care Coordination Note on file. ASSESSMENT AND PLAN Assessment AND Plan, all Hosp Problems Active Hospital Problems as of 10/18/2017 Noted - Resolved * (Principal)Colon cancer (HCC) 10/03/2017 - Present Current Assessment AND Plan Assessment: colon cancer PLAN: - status post lap TAC - advance diet to GI soft diet - d/c hoff Medication and Non-Pharmacologic VTE Prophylaxis/Anticoagulants Anticoagulant AND Antiplatelet Medications Start Dose Route Frequency Ordered Stop 10/17/17 1800 heparin 5,000 Units injection (Surgical Moderate Risk ) 5,000 Units SUBCUTANEOUS EVERY 8 HOURS 10/17/17 1740 -- 10/17/17 1800 aspirin, enteric coated 81 mg tab(s) (ASPIRIN, ENTERIC COATED) 81 mg ORAL DAILY 10/17/17 1732 -- 10/17/17 1745 pneumatic compression stockings ([place], [place]) 10/17/17 1745 activity - mobilize patient ([place]) 10/17/17 0630 pneumatic compression stockings ([place], [place]) VTE Prophylaxis: VTE prophylaxis appropriate Plan of care discussed with: Attending SIGNATURE: Jessi Grossman MD PATIENT NAME: Bari Romero DATE: October 18, 2017 TIME: 1:21 PM PAGER/CONTACT #: [phone] PROGRESS Observed: 10/18/2017 Status: COMPLETED Source: [place] 11:30 AM [facility] REPOSITORY HNO ID: [id number] Author: Kennedy Tan Service: Colorectal Author Type: Physician Type: Progress Notes Filed: 10/18/2017 11:37 AM Note Text: COLORECTAL SURGERY POSTOP PROGRESS NOTE SERVICE DATE: 10/18/2017 SERVICE TIME: 9am POD #1 Lap total colectomy and IR anastomsosi Patient and seen with Colorectal fellow. Her notes to follow. Pt looks well and comfortable, sitting out of bed. Has not passed gas yet Plan: Continue diet upgrades as per CRISTOPHER hoff All questions answered, patient is happy with management plan. ANTONIO TAN MD Clinical Associate CORS PT ED Observed: 10/18/2017 Status: COMPLETED Source: [place] 10:59 AM [facility] REPOSITORY HNO ID: [id number] Author: Mimi Feliciano-TAllyssa Corona Service: Nutrition Therapy Author Type: Jewel Hole Rough Opener Type: Patient Education Filed: 10/18/2017 11:01 AM Note Text: NUTRITION PATIENT EDUCATION TOPIC: Survival Skills: Diet PATIENT NAME: Bari Romero SERVICE DATE: October 18, 2017 Diagnosis: ADULT: colon cancer EXEMPTION FROM DIET EDUCATION READINESS TO LEARN Motivation to Learn: Eager Family Support: High - Very involved in pt care Instruction Provided to: Patient and Family member Factors Affecting Learning: None Physical Limitations Affecting Learning: None LEARNING RESPONSE Patient / Family Response: Verbalizes understanding of CORS/GI Soft Diet: Rationale behind diet restriction, foods allowed/to avoid, small frequent meals, chewing thoroughly, fluid recommendations, how long to continue on diet as well as how to transition off diet and(if applicable) dealing with potential problems (ostomy patients only). Method of Instruction: Individual instruction Written instruction - handouts Verbal instruction Instructional Aids Used: NA Supplemental Material Provided to Patient: Nutrition Therapy instruction material: Eating Right and Avoiding Dehydration after Bowel Surgery Referral (Recommendation): Nutrition - Outpatient MNT Billing Type: Routine Care/15 min 2 units Mimi Corona DTR [facility] Pager: [phone] October 18, 2017 10:59 AM TROPONIN T Collected: 10/18/2017 Status: F Source: [place] 5:22 AM [facility] REPOSITORY TYPE CODE TESTS RESULT OUT OF REFERENCE UNITS RANGE LAB TROPT 0.000-0.029 ng/mL High Troponin T 0.118 Result Comment: Called to and read back by: Reddy H50 10/18/17 1323 ARoberts Performed By: #### PAULINO #### [facility] [address] [place] [address] NURSING PROG Observed: 10/18/2017 Status: COMPLETED Source: [place] 1:04 AM [facility] REPOSITORY HNO ID: [id number] Author: Jeffy (Rn) MARY Anne Service: Nursing Author Type: Registered Nurse Type: Nursing Progress Note Filed: 10/18/2017 6:55 AM Note Text: Nursing Progress Note Patient Name: Bari Romero Patient Location: [place] [address] Daily Note: 104- Dr. Quique Santiago paged with FYI: Troponin is elevated at 0.132 (was elevated in OR/PACU). Creatinine trending up to 2.36. Inquired about getting ketorolac/ibuprofen orders d/c'd. 107Lucille ASIF called back. Pt stable, asymptomatic, no complaints. Ketorolac and ibuprofen orders d/c'd. Will continue to monitor. 654Lucille Hays paged: pt had 225 mL from his hoff catheter This note was completed by: Jeffy Anne, MARY CBC AND DIFFERENTIAL Collected: 10/17/2017 Status: F Source: [place] 11:31 PM [facility] REPOSITORY TYPE CODE TESTS RESULT OUT OF REFERENCE UNITS RANGE LAB WBC 3.70-11.00 k/uL WBC 7.40 LAB RBC 4.20-6.00 m/uL Low RBC 3.41 LAB HGB 13.0-17.0 g/dL Low Hemoglobin 9.2 LAB HCT 39.0-51.0 % Low Hematocrit 29.4 LAB MCV 80.0-100.0 fL MCV 86.2 LAB MCH 26.0-34.0 pG MCH 27.0 LAB MCHC 30.5-36.0 g/dL MCHC 31.3 LAB RDWCV 11.5-15.0 % RDW-CV High 15.7 LAB PLTCT 150-400 k/uL Platelet Count 253 LAB MPV 9.0-12.7 fL MPV 12.1 LAB ANEUT % Neut% 74.6 LAB AANEUT 1.45-7.50 k/uL Abs Neut 5.53 LAB ALYMP % Lymph% 14.9 LAB AALYMP 1.00-4.00 k/uL Abs Lymph 1.10 LAB AMONO % Louisa% 7.6 LAB AAMONO <0.87 k/uL Abs Louisa 0.56 LAB AEOS % Eosin% 2.6 LAB AAEOS <0.46 k/uL Abs Eosin 0.19 LAB ABASO % Baso% 0.3 LAB AABASO <0.11 k/uL Abs Baso <0.03 LAB AUNRBC 0 /100 WBC NRBCs 0.0 LAB ABNRBC <0.01 k/uL Absolute nRBC <0.01 LAB DTYP DTYPE Auto Diff Performed By: #### CBCDIF, BMP, MG1, PHOS, PAULINO #### [facility] [address] [place], [place] [address] BASIC METABOLIC PANL Collected: 10/17/2017 Status: F Source: [place] 11:31 PM [facility] REPOSITORY TYPE CODE TESTS RESULT OUT OF REFERENCE UNITS RANGE LAB GLU 74-99 mg/dL High Glucose 190 Result Comment: The [place] Diabetes Association (ADA) provides guidance for cutoff values for fasting glucose and random glucose. The ADA defines fasting as no caloric intake for at least 8 hours. Fas ting plasma glucose results between 100 to 125 mg/dL indicate increased risk for diabetes (prediabetes). Fasting plasma glucose results greater than or equal to 126 mg/dL meet the criteria for diagnosis of diabetes. In the absence of unequivocal hyperglycemia, results should be confirmed by repeat testing. In a patient with classic symptoms of hyperglycemia or hyperglycemic crisis, random plasma glucose results greater than or equal to 200 mg/dL meet the criteria for diagnosis of diabetes. Reference: Standards of Medical Care in Diabetes 2016, [place] Diabetes Association. Diabetes Care. 2016.39(Suppl 1). LAB BUN 9-24 mg/dL BUN High 26 LAB CRET 0.73-1.22 mg/dL Creatinine High 2.36 LAB NA 136-144 mmol/L Sodium 141 LAB K 3.7-5.1 mmol/L Potassium 4.0 LAB CL 97-105 mmol/L Chloride 103 LAB CO2 22-30 mmol/L CO2 29 LAB AGAP 9-18 mmol/L Anion Gap 9 LAB CA 8.5-10.2 mg/dL Calcium, Total 8.9 LAB GFRAA eGFR- Amer. 34 LAB GFRNAA . eGFR-All Other Races 28 Result Comment: eGFR (Estimated GFR) Units of measure: mL/min/1.73 meters squared eGFR is derived from the reexpressed MDRD Study equation using the following parameters: serum creatinine, age, gender and race. The creatinine assay has been calibrated to be traceable to IDMS. An eGFR <60 mL/min/1.73m2 for >3 months is consistent with chronic kidney disease. Refer to KDOQI guidelines for clinical interpretation. In patients with unstable renal function, e.g. those with acute kidney injury, the eGFR may not accurately reflect actual GFR. Performed By: #### CBCDIF, BMP, MG1, PHOS, PAULINO #### [facility] [address] [place] [id number] MAGNESIUM Collected: 10/17/2017 Status: F Source: [place] 11:31 PM [facility] REPOSITORY TYPE CODE TESTS RESULT OUT OF REFERENCE UNITS RANGE LAB MG 1.7-2.3 mg/dL Magnesium 2.1 Performed By: #### CBCDIF, BMP, MG1, PHOS, PAULINO #### [facility] [address] [place], [place] [address] PHOSPHORUS Collected: 10/17/2017 Status: F Source: [place] 11:31 PM [facility] REPOSITORY TYPE CODE TESTS RESULT OUT OF REFERENCE UNITS RANGE LAB PHOS 2.7-4.8 mg/dL Phosphorus 4.3 Performed By: #### CBCDIF, BMP, MG1, PHOS, PAULINO #### [facility] [address] [place], [place] [address] TROPONIN T Collected: 10/17/2017 Status: F Source: [place] 11:31 PM [facility] REPOSITORY TYPE CODE TESTS RESULT OUT OF REFERENCE UNITS RANGE LAB TROPT 0.000-0.029 ng/mL High Troponin T 0.132 Result Comment: Urgent value previously called 10/17/17 10:01 Performed By: #### CBCDIF, BMP, MG1, PHOS, PAULINO #### [facility] [address], [place] [address] CBC AND DIFFERENTIAL Collected: 10/17/2017 Status: F Source: [place] 11:30 PM [facility] REPOSITORY TYPE CODE TESTS RESULT OUT OF REFERENCE UNITS RANGE LAB WBC 3.70-11.00 k/uL WBC 7.33 LAB RBC 4.20-6.00 m/uL Low RBC 3.44 LAB HGB 13.0-17.0 g/dL Low Hemoglobin 9.2 LAB HCT 39.0-51.0 % Low Hematocrit 29.7 LAB MCV 80.0-100.0 fL MCV 86.3 LAB MCH 26.0-34.0 pG MCH 26.7 LAB MCHC 30.5-36.0 g/dL MCHC 31.0 LAB RDWCV 11.5-15.0 % RDW-CV High 15.8 LAB PLTCT 150-400 k/uL Platelet Count 263 LAB MPV 9.0-12.7 fL MPV 12.3 LAB ANEUT % Neut% 73.6 LAB AANEUT 1.45-7.50 k/uL Abs Neut 5.40 LAB ALYMP % Lymph% 15.3 LAB AALYMP 1.00-4.00 k/uL Abs Lymph 1.12 LAB AMONO % Louisa% 8.2 LAB AAMONO <0.87 k/uL Abs Louisa 0.60 LAB AEOS % Eosin% 2.5 LAB AAEOS <0.46 k/uL Abs Eosin 0.18 LAB ABASO % Baso% 0.4 LAB AABASO <0.11 k/uL Abs Baso 0.03 LAB AUNRBC 0 /100 WBC NRBCs 0.0 LAB ABNRBC <0.01 k/uL Absolute nRBC <0.01 LAB DTYP DTYPE Auto Diff Performed By: #### CBCDIF, BMP, MG1, PHOS, PAULINO #### [facility] [address] [place] [id number] BASIC METABOLIC PANL Collected: 10/17/2017 Status: F Source: [place] 11:30 PM [facility] REPOSITORY TYPE CODE TESTS RESULT OUT OF REFERENCE UNITS RANGE LAB GLU 74-99 mg/dL High Glucose 187 Result Comment: The [place] Diabetes Association (ADA) provides guidance for cutoff values for fasting glucose and random glucose. The ADA defines fasting as no caloric intake for at least 8 hours. Fas ting plasma glucose results between 100 to 125 mg/dL indicate increased risk for diabetes (prediabetes). Fasting plasma glucose results greater than or equal to 126 mg/dL meet the criteria for diagnosis of diabetes. In the absence of unequivocal hyperglycemia, results should be confirmed by repeat testing. In a patient with classic symptoms of hyperglycemia or hyperglycemic crisis, random plasma glucose results greater than or equal to 200 mg/dL meet the criteria for diagnosis of diabetes. Reference: Standards of Medical Care in Diabetes 2016, [place] Diabetes [employer]. Diabetes Care. 2016.39(Suppl 1). LAB BUN 9-24 mg/dL BUN High 25 LAB CRET 0.73-1.22 mg/dL Creatinine High 2.32 LAB NA 136-144 mmol/L Sodium 141 LAB K 3.7-5.1 mmol/L Potassium 4.1 LAB CL 97-105 mmol/L Chloride 101 LAB CO2 22-30 mmol/L CO2 28 LAB AGAP 9-18 mmol/L Anion Gap 12 LAB CA 8.5-10.2 mg/dL Calcium, Total 8.7 LAB GFRAA eGFR- Amer. 35 LAB GFRNAA . eGFR-All Other Races 29 Result Comment: eGFR (Estimated GFR) Units of measure: mL/min/1.73 meters squared eGFR is derived from the reexpressed MDRD Study equation using the following parameters: serum creatinine, age, gender and race. The creatinine assay has been calibrated to be traceable to IDMS. An eGFR <60 mL/min/1.73m2 for >3 months is consistent with chronic kidney disease. Refer to KDOQI guidelines for clinical interpretation. In patients with unstable renal function, e.g. those with acute kidney injury, the eGFR may not accurately reflect actual GFR. Performed By: #### CBCDIF, BMP, MG1, PHOS, PAULINO #### [facility] [address] [place] [address] MAGNESIUM Collected: 10/17/2017 Status: F Source: [place] 11:30 PM [facility] REPOSITORY TYPE CODE TESTS RESULT OUT OF REFERENCE UNITS RANGE LAB MG 1.7-2.3 mg/dL Magnesium 2.1 Performed By: #### CBCDIF, BMP, MG1, PHOS, PAULINO #### [facility] [address] [place] [address] PHOSPHORUS Collected: 10/17/2017 Status: F Source: [place] 11:30 PM [facility] REPOSITORY TYPE CODE TESTS RESULT OUT OF REFERENCE UNITS RANGE LAB PHOS 2.7-4.8 mg/dL Phosphorus 4.2 Performed By: #### CBCDIF, BMP, MG1, PHOS, PAULINO #### [place] [address] TROPONIN T Collected: 10/17/2017 Status: F Source: [place] 11:30 [facility] REPOSITORY TYPE CODE TESTS RESULT OUT OF REFERENCE UNITS RANGE LAB TROPT 0.000-0.029 ng/mL High Troponin T 0.134 Result Comment: Urgent value previously called 10/17/17 10:01 Performed By: #### CBCDIF, BMP, MG1, PHOS, PAULINO #### [place] [id number] ECG COMPLETE W Observed: 10/17/2017 Status: F Source: [place] INTERPRETATION 6:14 PM [facility] REPOSITORY NAME : BARI ROMERO PID : [id number] : 1955 Gender : Male Race : ORD : [id number] Procedure Date : Oct 17 2017 18:14:09 Edit Date : Oct 21 2017 11:16:58 Diagnosis:NORMAL SINUS RHYTHM NORMAL ECG Confirmed by LEILA TAYLOR M.D. ([id number]) on 10/21/2017 11:11:54 AM Ventricular Rate : 87 BPM Atrial Rate : 87 BPM P-R Interval : 190 ms QRS Duration : 78 ms Q-T Interval : 384 ms QTC Calculation(Bezet) : 462 ms P Oliver : 15 degrees R Oliver : 58 degrees T Oliver : 52 degrees Test Reason : Location : 53 : H50 04 Overread By : LEILA TAYLOR M.D. Edited By : LEILA TAYLOR M.D. Referred By : , Acquired by : [facility] NURSING PROG Observed: 10/17/2017 Status: COMPLETED Source: [place] 5:19 PM [facility] REPOSITORY HNO ID: [id number] Author: Nesha (Rn) MARY Nina Service: (none) Author Type: Registered Nurse Type: Nursing Progress Note Filed: 10/17/2017 5:22 PM Note Text: Nursing Progress Note Patient Name: Bari Romero Patient Location: [facility] 003/50-04 Transfer Note: Patient transferred into room/unit h50-04 in stable condition. Actions taken: oriented to room and call system. pas applied, educated on incentive kierra This note was completed by: Nesha Nina RN NURSING PROG Observed: 10/17/2017 Status: COMPLETED Source: [place] 4:19 PM [facility] REPOSITORY HNO ID: [id number] Author: Aggie Weir (Rn) MARY Gage Service: (none) Author Type: Registered Nurse Type: Nursing Progress Note Filed: 10/17/2017 4:23 PM Note Text: decrease in second set of troponin no cardia discomfort vital sign stable Dr. Marte at bed side to assess patient may go to [facility] with [facility] see anesthesia note. ANES POST Observed: 10/17/2017 Status: COMPLETED Source: [place] 3:55 PM [facility] REPOSITORY HNO ID: [id number] Author: Rom Marte Service: Anesthesiology Author Type: Anesthesiologist Type: Anesthesia PostOp Filed: 10/17/2017 4:00 PM Note Text: POST ANESTHESIA EVALUATION NOTE SERVICE DATE: 10/09/2017 SERVICE TIME: now Vitals: Patient Vitals for the past 24 hrs: BP Temp Temp src Pulse Resp SpO2 Height Weight 10/17/17 1530 158/72 - - 85 16 97 % - - 10/17/17 1500 152/75 - - 87 14 97 % - - 10/17/17 1430 150/72 - - 85 14 96 % - - 10/17/17 1400 144/74 - - 85 16 98 % - - 10/17/17 1345 157/75 - - 88 12 98 % - - 10/17/17 1330 150/80 - - 88 13 98 % - - 10/17/17 1315 150/73 - - 87 13 98 % - - 10/17/17 1300 148/70 - - 90 15 100 % - - 10/17/17 1252 159/71 36.2 ?C (97.2 ?F) Temporal Art 92 13 100 % - - 10/17/17 0649 145/70 36.2 ?C (97.2 ?F) Tympanic 87 16 - 185.4 cm (6' 0.99) 108 kg (238 lb 1.6 oz) Validated Vital Signs: Yes POST ANES STATUS: No apparent anesthetic complications. The patient is appropriately hydrated with stable respiratory and cardiovascular status. Patient has safe and adequate airway control. The patient has appropriate pain relief and no significant post operative nausea or vomiting. The patient has achieved baseline mental status. Further assessment by Anesthesia Service: None Other Remarks: Stable, fluent, clinically comfortable. Baseline Trop at induction 0.136. Did fine intraop. Post op Trop 0.120. No symptoms. Unremarkable post op EKG. Bedside POC cardiac ultrasound very reassuring. Good UOP. Never symptoms in PACU. Discussed in detail with cardiology team. They agree with transfer to [facility] but no further intervention or investigation needed unless he develops symptoms or other changes. Recheck 1 more trop this evening. SIGNATURE: DEEPA Marte MD PT NAME: Bari Romero DATE: October 17, 2017; 3:55 PM [facility]ART[facility] MG Collected: 10/17/2017 Status: F Source: [place] FOR 2:18 PM [facility] REPOSITORY TYPE CODE TESTS RESULT OUT OF REFERENCE UNITS RANGE LAB PH 7.35-7.45 pH Low 7.33 LAB PCO2 34-46 mm Hg pCO2 High 49 LAB PO2 85-95 mm Hg pO2 High 190 LAB BE mmol/L Base Excess 0 LAB HCO3 22-26 mmol/L Bicarbonate 26 LAB CO2CT 22.0-28.0 mmol/L CO2 Content 27 LAB O2HB 95-98 % Oxyhemoglobin, Art. 97 LAB COHB 0-5.0 % Carboxyhemoglobin,A 0.9 rt LAB MHGB 0.4-1.5 % Methemoglobin 1.2 LAB TEMP C Temperature, Body 37.0 LAB PHTC 7.35-7.45 pH, Temp Low Corrected 7.33 LAB PCO2T 34-46 mm Hg pCO2, Temp High Correct 49 LAB PO2T mm Hg pO2, Temp Corrected 190 LAB NAB 135-146 mmol/L Sodium,Whole Bld 140 LAB KWB 3.5-5.0 mmol/L Potassium, Whole Bld 3.9 LAB HGBB 13.0-17.0 g/dL Low Hemoglobin,Total,AC 9.3 L LAB HCTB 39.0-51.0 % Hematocrit, ACL Low 29 LAB IC 1.08-1.30 mmol/L Calcium, Ion, WB 1.24 LAB GLB 60-105 mg/dL Glucose,Whole Bld High 189 LAB LACT 0.5-2.2 mmol/L Lactate 1.7 LAB MGI 0.43-0.66 mmol/L Magnesium, Ion, Low WB 0.39 Performed By: #### ALLMG #### [facility] [employer] [place] [address] CKMB Collected: 10/17/2017 Status: F Source: [place] 1:58 PM [facility] REPOSITORY TYPE CODE TESTS RESULT OUT OF RANGE REFERENCE UNITS LAB MBE1 <7.7 ng/mL High CKMB 12.8 Performed By: #### MBE, PAULINO, HEXPOH #### [facility] [address] [place] [address] TROPONIN T Collected: 10/17/2017 Status: F Source: [place] 1:58 PM [facility] REPOSITORY TYPE CODE TESTS RESULT OUT OF REFERENCE UNITS RANGE LAB TROPT 0.000-0.029 ng/mL High Troponin T 0.120 Result Comment: Urgent value previously called on 10/17/17 1001 A.Bias Performed By: #### MBE, PAULINO, HEXPOH #### [facility] [address] [place], [place] [address] OCC HEALTH EXPOS Collected: 10/17/2017 Status: F Source: [place] 1:58 PM [facility] REPOSITORY TYPE CODE TESTS RESULT OUT OF REFERENCE UNITS RANGE LAB HBSAGX Negative HBsAg Negative LAB HVAGAB Non Reactive HIV Non Reactive 12 Ag/Ab Result Comment: (NOTE) HIV Information: [place] Rev. Code 3701.243(E): This information has been disclosed to you from confidential records protected from disclosure by state law. You shall make no further disclosure of this information without the specific, written, and informed release of the individual to whom it pertains, or as otherwise permitted by state law. A general authorization for the release of medical or other information is not sufficient for the purpose of the release of HIV test results or diagnoses. LAB AHCV Negative Hepatitis C Ab IA Negative LAB PXSCR Negative Post X Screen Negative Result Comment: Negative for both HIV1 and/or HIV2 antibodies and HIV1 p24 antigen. HIV Information: [place] Rev. Code 3701.243(E): This information has been disclosed to you from confidential records protected from disclosure by state law. You shall make no further disclosure of this information without the specific, written, and informed release of the individual to whom it pertains or as otherwise permitted by state law. A general authorization for the release of medical or other information is not sufficient for the purpose of the release of HIV test results or diagnoses. Called to and read back by: ROSANGELA [id number] 10/17/17 AVINASH Performed By: #### MBE, PAULINO, HEXPOH #### [place] [id number] [place] [id number] NURSING PROG Observed: 10/17/2017 Status: COMPLETED Source: [place] 1:01 PM [facility] REPOSITORY HNO ID: [id number] Author: Alethea Woods) MARY Hall Service: Nursing Author Type: Registered Nurse Type: Nursing Progress Note Filed: 10/17/2017 1:02 PM Note Text: Nursing Progress Note Patient Name: Bari Romero Patient Location: [place] [address]/H020-09 Daily Note: 1252: 12 lead EKG performed upon arrival to PACU. Dr. Rom Marte at bedside and viewed. This note was completed by: Alethea Hall RN ECG COMPLETE W Observed: 10/17/2017 Status: F Source: [facility] 12:50 PM [facility] REPOSITORY NAME : BARI ROMERO PID : [id number] : 1955 Gender : Male Race : ORD : [id number] Procedure Date : Oct 17 2017 12:50:27 Edit Date : Oct 21 2017 11:16:55 Diagnosis:NORMAL SINUS RHYTHM NONSPECIFIC ST ABNORMALITY PROLONGED QT INTERVAL OR TU FUSION, CONSIDER HYPOKALEMIA ABNORMAL ECG Confirmed by LEILA TAYLOR M.D. (67) on 10/21/2017 11:11:54 AM Ventricular Rate : 93 BPM Atrial Rate : 93 BPM P-R Interval : 190 ms QRS Duration : 82 ms Q-T Interval : 394 ms QTC Calculation(Bezet) : 489 ms P Oliver : 50 degrees R Oliver : 63 degrees T Oliver : 64 degrees Test Reason : BEST\ PT TREMOR Location : 3 : E20 09 Overread By : LEILA TAYLOR M.D. Edited By : LEILA TAYLOR M.D. Referred By : , Acquired by : GEENA TARIQ BRIEF OP NOT Observed: 10/17/2017 Status: COMPLETED Source: [place] 12:17 PM [facility] REPOSITORY HNO ID: [id number] Author: Jessi Grossman (Fel) Service: (none) Author Type: Fellow Type: Brief Op Note Filed: 10/17/2017 12:21 PM Note Text: BRIEF OPERATIVE NOTE - COLORECTAL SURGERY Log ID: [id number] Surgery/Procedure Date: 10/17/2017 Incision/Procedure Start Time: 8:24 AM Incision Close/Procedure End Time: 12:16 PM Surgeon(s) and [place](s): Surgeon(s) and Role: * Luis Dunn - Primary * Jessi Grossamn (Fel) - Fellow No Additional Staff Procedures and Anesthesia: Procedure(s) and Anesthesia Type: * COLECTOMY ABDOMINAL W/O PROCTECTOMY W/ ILEOSTOMY/ILEOPROCTOSTOMY, TOTAL - General Stoma Type: N/A Findings: Multiple colonic polyps and hepatic flexure mass with tattoo. Subtotal abdominal colectomy performed. EEA stapler unable to advance in sigmoid colon, so 3 cm of further sigmoid colon taken. Final ileocolonic anastomosis uneventful. 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 Drains: None Wound Classification: Class 2, operative wound clean-contaminated, gastrointestinal tract entered without significant spillage Complications: None SIGNATURE: Jessi Grossman MD PATIENT NAME: Bari Romero DATE: October 17, 2017 TIME: 12:17 PM PAGER/CONTACT #: [phone] GASA + ALL Collected: 10/17/2017 Status: F Source: [place] FOR 11:03 AM [facility] USE ONLY REPOSITORY TYPE CODE TESTS RESULT OUT OF REFERENCE UNITS RANGE LAB PH 7.35-7.45 pH 7.35 LAB PCO2 34-46 mm Hg pCO2 High 47 LAB PO2 85-95 mm Hg pO2 High 167 LAB BE mmol/L Base Excess 0 LAB HCO3 22-26 mmol/L Bicarbonate 25 LAB CO2CT 22.0-28.0 mmol/L CO2 Content 26 LAB O2HB 95-98 % Oxyhemoglobin, Art. 97 LAB COHB 0-5.0 % Carboxyhemoglobin,A 0.4 rt LAB MHGB 0.4-1.5 % Methemoglobin 0.5 LAB TEMP C Temperature, Body 37.0 LAB PHTC 7.35-7.45 pH, Temp Corrected 7.35 LAB PCO2T 34-46 mm Hg pCO2, Temp High Correct 47 LAB PO2T mm Hg pO2, Temp Corrected 167 LAB NAB 135-146 mmol/L Sodium,Whole Bld 138 LAB KWB 3.5-5.0 mmol/L Potassium, Whole Bld 3.9 LAB HGBB 13.0-17.0 g/dL Low Hemoglobin,Total,AC 8.1 L LAB HCTB 39.0-51.0 % Hematocrit, ACL Low 25 LAB IC 1.08-1.30 mmol/L Calcium, Ion, WB 1.17 LAB GLB 60-105 mg/dL Glucose,Whole Bld High 228 LAB LACT 0.5-2.2 mmol/L Lactate High 2.5 Performed By: #### ALLBG #### [facility] [address], [place] [address] CBC Collected: 10/17/2017 Status: F Source: [place] 8:48 AM [facility] REPOSITORY TYPE CODE TESTS RESULT OUT OF REFERENCE UNITS RANGE LAB WBC 3.70-11.00 k/uL WBC 7.09 LAB RBC 4.20-6.00 m/uL Low RBC 3.02 LAB HGB 13.0-17.0 g/dL Low Hemoglobin 7.8 LAB HCT 39.0-51.0 % Low Hematocrit 26.3 LAB MCV 80.0-100.0 fL MCV 87.1 LAB MCH 26.0-34.0 pG Low MCH 25.8 LAB MCHC 30.5-36.0 g/dL Low MCHC 29.7 LAB RDWCV 11.5-15.0 % RDW-CV High 15.1 LAB PLTCT 150-400 k/uL Platelet Count 221 LAB MPV 9.0-12.7 fL MPV 12.1 LAB ABSNUC <0.01 k/uL Absolute nRBC <0.01 Performed By: #### CBC #### [facility] [address], [place] [address] GASA + ALL Collected: 10/17/2017 Status: F Source: [facility] 8:21 AM [facility] USE ONLY REPOSITORY TYPE CODE TESTS RESULT OUT OF REFERENCE UNITS RANGE LAB PH 7.35-7.45 pH 7.37 LAB PCO2 34-46 mm Hg pCO2 44 LAB PO2 85-95 mm Hg pO2 High 177 LAB BE mmol/L Base Excess 0 LAB HCO3 22-26 mmol/L Bicarbonate 25 LAB CO2CT 22.0-28.0 mmol/L CO2 Content 26 LAB O2HB 95-98 % Oxyhemoglobin, Art. 98 LAB COHB 0-5.0 % Carboxyhemoglobin, 0.4 Art LAB MHGB 0.4-1.5 % Methemoglobin Low 0.0 LAB TEMP C Temperature, Body 37.0 LAB PHTC 7.35-7.45 pH, Temp Corrected 7.37 LAB PCO2T 34-46 mm Hg pCO2, Temp Correct 44 LAB PO2T mm Hg pO2, Temp Corrected 177 LAB NAB 135-146 mmol/L Sodium,Whole Bld 138 LAB KWB 3.5-5.0 mmol/L Potassium, Whole Bld 3.6 LAB HGBB 13.0-17.0 g/dL Low Hemoglobin,Total,A 7.9 CL LAB HCTB 39.0-51.0 % Hematocrit, Low ACL 25 LAB IC 1.08-1.30 mmol/L Calcium, Ion, WB 1.23 LAB GLB 60-105 mg/dL Glucose,Whole High Bld 213 LAB LACT 0.5-2.2 mmol/L Lactate 1.8 LAB ACBDTE Notify Date, Art [id number] LAB ACBTME Notify Time, Art Performed By: #### ALLBG #### [facility] [address] [place], [place] [address] BASIC METABOLIC PANL Collected: 10/17/2017 Status: F Source: [place] 8:05 AM [facility] REPOSITORY TYPE CODE TESTS RESULT OUT OF REFERENCE UNITS RANGE LAB GLU 74-99 mg/dL High Glucose 224 Result Comment: The [place] Diabetes Association (ADA) provides guidance for cutoff values for fasting glucose and random glucose. The ADA defines fasting as no caloric intake for at least 8 hours. Fas ting plasma glucose results between 100 to 125 mg/dL indicate increased risk for diabetes (prediabetes). Fasting plasma glucose results greater than or equal to 126 mg/dL meet the criteria for diagnosis of diabetes. In the absence of unequivocal hyperglycemia, results should be confirmed by repeat testing. In a patient with classic symptoms of hyperglycemia or hyperglycemic crisis, random plasma glucose results greater than or equal to 200 mg/dL meet the criteria for diagnosis of diabetes. Reference: Standards of Medical Care in Diabetes 2016, [place] [employer] Association. Diabetes Care. 2016.39(Suppl 1). LAB BUN 9-24 mg/dL BUN High 28 LAB CRET 0.73-1.22 mg/dL Creatinine High 2.31 LAB NA 136-144 mmol/L Sodium 141 LAB K 3.7-5.1 mmol/L Potassium 3.7 LAB CL 97-105 mmol/L Chloride 101 LAB CO2 22-30 mmol/L CO2 25 LAB AGAP 9-18 mmol/L Anion Gap 15 LAB CA 8.5-10.2 mg/dL Calcium, Total 9.0 LAB GFRAA eGFR- Amer. 35 LAB GFRNAA . eGFR-All Other Races 29 Result Comment: eGFR (Estimated GFR) Units of measure: mL/min/1.73 meters squared eGFR is derived from the reexpressed MDRD Study equation using the following parameters: serum creatinine, age, gender and race. The creatinine assay has been calibrated to be traceable to IDMS. An eGFR <60 mL/min/1.73m2 for >3 months is consistent with chronic kidney disease. Refer to KDOQI guidelines for clinical interpretation. In patients with unstable renal function, e.g. those with acute kidney injury, the eGFR may not accurately reflect actual GFR. Performed By: #### BMP, MG1, PAULINO #### [facility] [address] [place], [place] [address] MAGNESIUM Collected: 10/17/2017 Status: F Source: [place] 8:05 AM [facility] REPOSITORY TYPE CODE TESTS RESULT OUT OF REFERENCE UNITS RANGE LAB MG 1.7-2.3 mg/dL Magnesium 1.8 Performed By: #### BMP, MG1, PAULINO #### [facility] [address], [place] [address] TROPONIN T Collected: 10/17/2017 Status: F Source: [place] 8:05 [facility] REPOSITORY TYPE CODE TESTS RESULT OUT OF REFERENCE UNITS RANGE LAB TROPT 0.000-0.029 ng/mL High Troponin T 0.136 Result Comment: Called to and read back by: Sedrick Reese Office 10/17/17 1001 Jenae Called to and read back by: Pravin Reese's office 10/17/17 1001 Janeth Mirza Performed By: #### BMP, MG1, PAULINO #### [facility] [address], [place] [address] TYPE AND SCREEN Collected: 10/17/2017 Status: F Source: [place] 7:00 [facility] REPOSITORY TYPE CODE TESTS RESULT OUT OF REFERENCE UNITS RANGE LAB %ABR A ABO/RH(D) POSITIVE LAB % Antibody NEG Screen Performed By: #### TSCR #### [place] [address] NURSING PROG Observed: 10/17/2017 Status: COMPLETED Source: [place] 6:24 AM [facility] REPOSITORY HNO ID: [id number] Author: Alena (Rn) MARY Bird Service: Nursing Author Type: Registered Nurse Type: Nursing Progress Note Filed: 10/17/2017 6:24 AM Note Text: PRE OP LEARNING ASSESSMENT PROCEDURE/SURGERY: SURGERY: READINESS TO LEARN COGNITIVE ABILITY: Alert and oriented MOTIVATION TO LEARN: Eager FAMILY SUPPORT: High - Very involved in pt care PATIENT LEARNS BEST BY: Individual Instruction FACTORS AFFECTING LEARNING: None PHYSICAL LIMITATIONS AFFECTING LEARNING: None Electronically Signed By: Alena Bird RN In Department: [facility] M022 OPERATIVE NO Observed: 10/17/2017 Status: COMPLETED Source: [place] 12:00 AM [facility] REPOSITORY HNO ID: [id number] Author: Luis Dunn Service: Colorectal Author Type: Physician Type: Operative Report Filed: 10/21/2017 7:56 AM Note Text: [place] [address] [place] OPERATIVE REPORT NAME: BARI ROMERO [facility] #: [id number] DATE: 10/17/2017 AGE: 61 SURGEON 1: Luis Dunn M.D. SURGEON 2: STAMPING OPERATOR 1: Dr. Jessi Zhong STAMPING OPERATOR 2: Elizabeth Starr, Medical Student OPERATION: Laparoscopic total abdominal colectomy with ileosigmoid anastomosis and flexible sigmoidoscopy. ANESTHESIA: General endo-orotracheal. PREOPERATIVE DIAGNOSIS: Right colon cancer and multiple polyps. POSTOPERATIVE DIAGNOSIS: Right colon cancer and multiple polyps. OPERATIVE INDICATIONS: The patient with a history of rectal bleeding and anemia. He underwent a colonoscopy that demonstrated multiple polyps that were adenomatous starting at approximately 25 cm in the descending colon- sigmoid colon junction with a large mass in the hepatic flexure that was biopsy proven adenocarcinoma. He had undergone an evaluation and workup for metastatic disease and now presents for definitive surgical management. He has been counseled as to the risks of the procedure to include, but not limited to pain, bleeding, infection, need for other surgery, anesthesia risks, and . Each of these were explained him and he is willing to proceed. OPERATIVE FINDINGS: 1. No sign of any metastatic disease intra-abdominally. 2. Ileosigmoid anastomosis with 2 good donuts and no air leaks. OPERATIVE PROCEDURE: After consent, the patient was taken to the operating room and placed in the supine position on the operating table. We made a pause to identify the patient, procedure, and other pertinent information. Once everyone was in agreement, we proceeded. He underwent general endo-orotracheal intubation and was placed in a low lithotomy position on the operating table ensuring all bony prominences were padded. His abdomen was prepped and draped in standard surgical fashion. Of note, he was given perioperative antibiotics of Rocephin and Flagyl as well as subcutaneous heparin. He had an orogastric tube and a Hoff catheter placed. Following a secondary pause after waiting 3 minutes for the skin prep time to dry, we made a small incision underneath the umbilicus and the abdomen was entered using standard Mariza technique. The right lower quadrant 12 mm port, right upper quadrant 5 mm port, left-sided 5 mm port, and left lower quadrant 5 mm port were placed under direct visualization. Generalized exploration of the abdomen revealed there to be no sign of any metastatic disease. He had an obvious tattoo at the hepatic flexure, which demonstrated the site of the previously known invasive adenocarcinoma. We started on the right side with the mediolateral approach with elevating the cecum and identifying the patient's ileocolic pedicle. We performed a [id number] dissection with identification of the duodenum. Once we had skeletonized the ileocolic pedicle, we divided this using the LigaSure device. We then continued our medial dissection, the mesentery of the right colon, and proximal transverse colon from the retroperitoneum. We then turned our attention to the transverse colon. We took down the gastrocolic ligament entering the lesser sac with care not to have any damage to the stomach. We continued with taking down the entire transverse colon, gastrocolic ligament, and then did a full splenic flexure mobilization taking the attachments down to the spleen. We then came to the mid sigmoid colon and chose a point distal to where the majority of the polyps were and made a small window underneath the colon itself, and using the LigaSure device and then used the Endo- BOONE 60 mm stapler with a purple load in order to divide the sigmoid colon. We then continued our mobilization along the white line of Toldt and then divided the entire mesentery to all of the remaining part of the descending and proximal sigmoid colon, the transverse colon, and the right colon using the LigaSure device making sure that we had adequate exposure throughout. A small incision was made at the umbilicus port and a wound protector was placed, and we brought out the abdominal colon ensuring no twists or turns, but we were able to identify the junction between the terminal ileum and cecum, placed a small atraumatic bowel clamp, divided the bowel, and passed it off as specimen to Pathology. Of note, we had an oncological resection margin in the right portion of the colon with the takedown of the middle colic vessels, the right colon branch as well as the ileocolic pedicle, where the cancer was. A pursestring was placed using 2-0 Prolene suture and a 28 mm anvil was placed in the small bowel. We were then able to drop this back into the abdomen and re-insufflated. We traced the root of mesentery back to the base to ensure that there was no sign of any twists or turns or leakage. We ensured that all the small bowel was to the patient's left side and it was not underneath. We had a difficult time bringing the stapler all the way up to the mid sigmoid colon, did a tight band, which despite being able to free up, we could not get it to pass; therefore, we resected down to this more proximal sigmoid colon using the LigaSure device and the mesentery and divided the colon again using an Endo-BOONE with an 80-mm stapler load removing a small amount of the sigmoid colon and passed this off as specimen to Pathology. We then were able to easily pass the stapler and we ensured that the mesentery was properly oriented. The spike was brought through the rectal stump just anterior to the midline and we connected the anvil to the spike and performed our anastomosis. The stapler was removed and we had 2 good doughnuts. We performed a flexible sigmoidoscopy with an air leak test with clamping proximally and there was no sign of any air leak. The anastomosis looked completely healthy and viable and there was no sign of any leakage or bleeding. The flexible sigmoidoscope was then removed. All port sites and wound protector were then removed. We copiously irrigated out the sites. The fascia to the extraction site was closed using #1 looped PDS. The incision site was 6 cm in length. All skin sites were copiously irrigated out and the skin sites were then closed using skin staplers. Sterile gauze dressing was applied. The patient tolerated the procedure well. All counts to include sponge, needle, and instrument counts were correct. START TIME: 8:24. STOP TIME: 11:49. ATTESTATION: I was present and scrubbed in throughout the procedure. TOTAL IV FLUIDS: 3 L. Transfusions, 1 unit of pack red blood cells for chronic anemia. TOTAL URINE OUTPUT: 240 mL. ESTIMATED BLOOD LOSS: 50 mL. DRAINS: None. ANTIBIOTICS: Rocephin and Flagyl. SPECIMENS: 1. Sigmoid colon. 2. Abdominal colon with mass and polyps. WOUND CLASS: 3. Luis Dunn M.D. SS:[id number] /[id number] cc: SURGICAL PATHOLOGY Observed: 10/17/2017 Status: C Source: [place] 12:00 [facility] [place] REPOSITORY ADDITIONAL PROCEDURES PRESENT Specimen originated from [facility] Specimen #: [id number] Submitting Physician: LUIS REESE FINAL DIAGNOSIS 1. 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 - See comment and synoptic report. 2. Sigmoid, sigmoidectomy (B) - Diverticulitis. - One lymph node, negative for carcinoma (0/1). TP/AP/rw 10/22/2017 COMMENT About 35 polyps were noted grossly throughout the colon, but more numerous in the right and transverse colon. The vast majority of these polyps are serrated (85-90%), with sessile serrated polyps (a couple with focal low-grade dysplasia; at least 2 SSPs are > 1 cm) being twice as common as hyperplastic polyps. Further, it appears that the carcinoma also arises from a SSP with dysplasia. Tubular adenomas account for 10- 15% of the polyps. 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 Given that a gene has not been identified in SPS patients, the pathologic findings/criteria are somewhat arbitrary, so please confirm clinically. SYNOPTIC REPORT OF [facility]ANG PATHOLOGIC FINDINGS ABDOMINAL COLON WITH MASS AND POLYPS: COLON AND RECTUM:RESECTION, INCLUDING TRANSANAL DISK EXCISION OF RECTAL NEOPLASMS WORKSHEET: Procedure: Total abdominal colectomy Tumor Site: Right (ascending) colon Tumor Size: Greatest dimension: 6 cm Additional Dimension: 3 cm Additional Dimension: 2 cm Macroscopic Tumor Perforation: Not identified Histologic Type: Adenocarcinoma Histologic Grade: G2: Moderately differentiated Tumor Extension: Tumor invades through the muscularis propria into pericolorectal tissue Margins: All margins are uninvolved by invasive carcinoma, high-grade dysplasia, intramucosal adenocarcinoma, and adenoma Margins examined: proximal, distal, mesenteric Proximal Margin: Uninvolved by invasive carcinoma Distal Margin: Uninvolved by invasive carcinoma Circumferential Radial Margin: Uninvolved by invasive carcinoma Mesenteric Margin: Uninvolved by invasive carcinoma Treatment Effect: No known presurgical therapy Lymphovascular Invasion: Present Small vessel lymph-vascular invasion Perineural Invasion: Present Type of Polyp in which Invasive Carcinoma Arose: Sessile serrated adenoma/sessile serrated polyp Tumor Deposits: Not applicable Regional Lymph Nodes: Number of nodes involved: 2 Number of nodes examined: 26 Pathologic Stage Classification (pTNM,AJCC 8th ed) TNM Descriptors: Not applicable Pathologic Staging (pTNM): pT3: Tumor invades through the muscularis propria into pericolorectal tissues Regional Lymph Nodes (pN): pN1b: Two or three regional lymph nodes are positive Distant Metastasis (pM): Not applicable/Not confirmed pathologically in this case Additional Pathologic Findings: Other: see comment above Ancillary Studies: Immunohistochemistry Studies for Mismatch Repair Proteins- Addendum to follow Jesús Pearce M.D. (Electronic Signature) SPECIMEN SUBMITTED A: ABDOMINAL COLON WITH MASS AND POLYPS B: SIGMOID ADDITIONAL PROCEDURE(S) MMR STATUS Date Ordered: 10/28/2017 Date Reported: 11/03/2017 Procedure Results and Interpretation MMR Status Report - Immunohistochemistry Colon, adenocarcinoma, immunohistochemical staining for mismatch repair proteins: Result: MLH1, PMS2, MSH2, and MSH6 proteins with normal expression in carcinoma nuclei. Mismatch repair (MMR) status: Proficient (microsatellite stable) Specimen: [id number] Block: A12 Comment: Intact expression of MMR (mismatch repair) proteins by immunohistochemistry is highly correlated with a microsatellite stable result by MSI (microsatellite instability) PCR analysis, and the results from these two tests are viewed as clinically equivalent by the FDA. This result excludes at least 90-95% of Olmedo syndrome. These tests are an imperfect screen because some mutations may not produce loss of immunohistochemical expression. Further, additional proteins are present in the mismatch repair gene complex that, when defective, might also cause Olmedo syndrome. In cases with a high clinical suspicion and appropriate family history, MSI molecular testing can be performed upon request. In clinical trials, the clinical benefit of pembrolizumab, an anti-programmed 1 (PD-1) immune checkpoint inhibitor,was predicted by the tumor's mismatch repair status;mismatch repair deficient (dMMR) tumors are more responsive to PD-1 blockade than mismatch repair proficient tumors (NEJM 2015;372:0459-20 and Science. 2017 Oct 11;357(5656):409-413). Subsequently pembrolizumab was FDA-approved for the treatment of adult and pediatric patients with unresectable or metastatic solid tumors that display microsatellite instability-high (MSI-H) by PCR assay or dMMR by immunohistochemistry (IHC).The FDA does not distinguish between PCR and IHC-based assays, as these are considered equivalent and complimentary tests. As clinically indicated, and in the appropriate setting of genetic counseling with informed patient consent, further genetic testing may be helpful. For more information or questions about this result, please call the [facility] at . Mismatch Repair Protein Immunohistochemistry Results (Loss or Normal): MLH1: Normal PMS2: Normal MSH2: Normal MSH6: Normal MLH1 promoter methylation assay ordered: No Laboratory Developed Test (LDT) Disclaimer: Positive and negative controls stain appropriately. Performance characteristics of immunohistochemical, immunofluorescent and chromogenic in-situ hybridization tests have been determined by [facility] [place] ([facility]) in a manner consistent with CLIA requirements. One or more of these tests have not been cleared or approved by the FDA. [facility] is regulated under CLIA as qualified to perform high-complexity testing. These tests are used for clinical purposes. They should not be regarded as investigatinal or for research. ES/RW/10/31/2017 Procedure Pathologist: Nicky Evans M.D. Electronic Signature CLINICAL DATA COLON CANCER GROSS DESCRIPTION A. Received in formalin labeled with the patient's name, medical record number and abdominal colon with mass and polyps is a specimen consisting of ileum, cecum, appendix, and colon measuring 62.5 cm in length overall. The ileum measures 5 cm in length, 3.5 cm in circumference and 0.4 cm in wall thickness. The cecum measures 6 cm in length, 10 cm in circumference, and 0.3 cm in wall thickness. The appendix measures 5 cm in length, 0.3 cm in diameter, 0.2 cm in wall thickness, and has a pinpoint lumen. The right colon measures 8.5 cm in length, 5 cm in circumference, and 0.4 cm in wall thickness. The transverse colon measures 28 cm in length, 6 cm in circumference, and 0.4 cm in wall thickness. The left colon measures 20 cm in length, 4.5 cm in circumference and 0.6 cm in wall thickness. There is a white-baptiste mass with a flat surface taking up to 80% of the circumference of the bowel which measures 6 x 3 x 2 cm. This mass is located in the right colon at the area of the hepatic flexure. The mass is located 15 cm from the proximal margin, which his inked blue, 5 cm from the radial margin, which is inked black, and 49 cm from the distal margin, which is inked black. The mass grossly invades into the attached fat to a depth of 0.5 cm. There is an area of serosa directly adjacent to the mass, which is not overlying the mass and is inked black. The serosa appears grossly uninvolved. There are approximately 35 polyps located throughout the cecum and colon, ranging in size from 0.3 to 1.5 cm in greatest dimension. These polyps are freely mobile and not fixed. There are two clips on the mucosal surface, one near the hepatic flexure measuring 17 cm from the proximal margin and the other near the splenic flexure measuring 20 cm from the distal margin. There is an area of tattoo adjacent to and distal to the mass measuring 2 x 4 cm in area. Two diverticula are identified located 1 cm from the distal margin and do not appear perforated. Multiple possible lymph nodes are identified ranging in size from 0.1 to 3.6 cm in greatest dimension. Oven Baker sections are submitted as follows: A1 appendix tip, bisected and totally submitted, A2 exhibit display representative sections of appendix, A3 ileocecal valve, A4 proximal margin perpendicular (blue), A5 distal margin perpendicular (black), A6 radial margin shave (black), A7-A8 mass with deepest extent, A9-A12 mass with adjacent normal, A13 mass with adjacent serosa (black), A14 cecal polyp totally submitted 6 cm from proximal margin, A15-A16 one transverse colon polyp totally submitted per cassette, A17 exhibit display representative section of tattoo area, A18 proximal biopsy clip site area, A19 distal biopsy clip site area, A20-A23 normal bowel from distal to proximal at 10 cm intervals, A24 exhibit display representative section of cecum, A25 exhibit display representative section of ileum, A26 diverticula, A27- A28 one possible lymph node from right colon serially sectioned and totally submitted, A29 grossly suspicious lymph-vascular invasion located in right colon adipose tissue, A30-A34 one possible lymph node from right colon per cassette sectioned and totally submitted, A35-A39 five possible lymph nodes from right colon per cassette totally submitted, A40 five possible lymph nodes from transverse colon totally submitted, A41 three possible lymph nodes from left colon totally submitted. A42 two right colon polyps bisected and totally submitted, A43 five right colon polyps totally submitted, A44 four transverse colon polyps totally submitted, A45 four transverse colon polyps totally submitted, A46 four transverse colon polyps totally submitted, A47 four transverse colon polyps totally submitted, A48 one left colon polyp bisected and totally submitted, A49 three left colon polyps totally submitted A50 four left colon polyps totally submitted. B. Received in formalin labeled with the patient's name, medical record number and sigmoid is an un-oriented portion of bowel measuring 5.9 cm in length, 3.5 cm in circumference and 0.5 cm in wall thickness. The attached fat is bulky and the exposed serosal surface is pink-baptiste, smooth and normal. The mucosal surface is baptiste and reveals multiple diverticula, which do not appear perforated. Three possible lymph nodes are identified. One margin is inked blue and the opposite margin is inked black. Oven Baker sections are submitted as follows: B1 blue-inked margin, perpendicular, B2-B3 black-inked margin, perpendicular with diverticula, B4-B5 exhibit display representative sections of diverticula, B6 three possible lymph nodes totally submitted. AP/elizabeth 10/20/2017 Gross examination performed at [facility], [address] [place] [address] Date of Report: 10/27/2017 Date of Procedure: 10/17/2017 Date of Receipt: 10/17/2017 Submitted by: LUIS REESE Location: 0 Diagnostic interpretation performed at [place] [address]. PULMONARY VISIT REPORT Observed: 10/14/2017 Status: F Source: [place] 9:17 AM [facility] Pulmonary Medicine of [address] [place] [address] OFFICE VISIT Date of Service: 10/14/17 MR#: [id number] Acct: [id number] Name: BARI ROMERO Rep #: [id number] : 1955 Provider: Loan Navarrete Age/Sex: 61/M Location: [facility] Status: Signed Assessment AND Plan 1. Stage 3 severe COPD by GOLD classification J44.9 Status Chronic FEV1 37% predicted Plan He does not appear to be an exacerbation of his COPD today. He is using a rescue inhaler several times weekly, which indicates that he may benefit from a maintenance medication. He will be started on Spiriva Respimat. He was personally instructed on how to use the inhaler, and the first dose was administered in the office today. He has a 2 week supply and has been advised to contact the office after 1 week on the medication if he feels the medication is helpful and he would like a prescription. He is also been instructed to contact the office with any new or worsening symptoms in the meantime, otherwise follow-up with Dr. Barlow in 3 months. Orders Orders: 2. LADARIUS (obstructive sleep apnea) G47.33 Plan Noncompliant. Plan Detail Follow Up 6 Months (DMB) HPI 2 M FU: Chief Complaint: Shortness of breath HPI Comments Details: This patient presents to the office today to follow- up after recently having test results. He is ambulatory and currently on room air. He has not been seen by the ED or urgent care for any respiratory illnesses since his last office visit. He has not required any antibiotics or prednisone for breathing problems. He is not currently on any maintenance inhalers. He is using his albuterol nebulizer 3-4 times weekly, in addition to his albuterol HFA which she also uses approximately 1-2 times per week. He is compliant with supplemental oxygen, wearing 2.5 L with ambulation. He continues to experience shortness of breath on exertion, denies any shortness of breath at rest or during conversation. He denies any wheezing, chest tightness or cough. He has not experienced any chest pain or palpitations. He denies any fever, chills or body aches. He denies any lower extremity edema. He reports an upcoming colon surgery where per his own words he is going to have three quarters of his colon removed. Surgery is scheduled for October 17, 2017. See complete review of systems. Re-titration study completed on August 26, 2017 shows that the patient should be treated with BiPAP recommendations are 16/10 cm of water. Therapy was ordered and delivered. Patient did not take the device [id number]-box and has declined to start therapy. Pulmonary function test completed on September 09, 2017 is interpreted as showing a reversible severe mixed ventilatory defect with asymmetric reduction diffusing capacity. FVC 50%, FEV1 37% of predicted, FEV1/FVC 56% of predicted, TLC 72% predicted, RV 94% predicted and DLCO 34% predicted. Intake Vital Signs10/14/17 Height 6 ft 1 in 10/14/17 Weight: 239 lb Intake Visit Reasons: 2 M FU Soap Tender Required: No Accompanied by: Self Is patient in pain?: No Allergies No Known Allergies Allergy (Verified 10/14/17 08:19) Medications Albuterol Inhaler [Ventolin Hfa] 1 - 2 puff INHALATION Q6H PRN PRN 05/14/17 [History Confirmed 10/14/17] Aspirin 81 mg PO DAILY 05/14/17 [History Confirmed 10/14/17] Insulin Aspart [Novolog Flexpen] 45 units SC TIDCM 05/14/17 [History Confirmed 10/14/17] Insulin Degludec [Tresiba Flextouch U-100] 60 unit SC BID 05/14/17 [History Confirmed 10/14/17] Nitroglycerin [Nitrostat] 0.4 mg SUBLINGUAL Q5M PRN 05/14/17 [History Confirmed 10/14/17] Oxycodone [Oxyir] 5 mg PO BID PRN PRN 05/14/17 [History Confirmed 10/14/17] Simvastatin 80 mg PO QHS 05/14/17 [History Confirmed 10/14/17] Oxygen, Home [Home Oxygen] 2 - 3 lpm NASAL UD #1 unit 05/18/17 [Rx Confirmed 10/14/17] Albuterol Aerosols [Ventolin Aerosols] 2.5 mg INHALATION Q4H PRN PRN 09/15/17 [History Confirmed 10/14/17] Allopurinol [Zyloprim] 300 mg PO DAILYCM 09/15/17 [History Confirmed 10/14/17] Cilostazol 100 mg PO BID 09/15/17 [History Confirmed 10/14/17] Colchicine 0.6 mg PO TID PRN 09/15/17 [History Confirmed 10/14/17] Ergocalciferol [Vitamin D] 50,000 unit PO Q7D 09/15/17 [History Confirmed 10/14/17] Ferrous Sulfate 325 mg PO DAILY 09/15/17 [History Confirmed 10/14/17] Finasteride [Proscar] 5 mg PO DAILY 09/15/17 [History Confirmed 10/14/17] Isosorbide Mononitrate [Imdur] 30 mg PO DAILY 09/15/17 [History Confirmed 10/14/17] Metoprolol(XL)Succ [Toprol Xl (Beta Vanesa)] 50 mg PO DAILY 09/15/17 [History Confirmed 10/14/17] Nebulizer [Aeroneb Go Nebulizer] 1 ea MC 4X/DAY 09/15/17 [History Confirmed 10/14/17] Pantoprazole Sodium [Protonix] 40 mg PO DAILY 09/15/17 [History Confirmed 10/14/17] Tamsulosin HCl [Flomax] 0.4 mg PO DAILY@1730 09/15/17 [History Confirmed 10/14/17] hydrALAZINE [Apresoline] 25 mg PO TID 09/15/17 [History Confirmed 10/14/17] Sodium Bicarbonate 650 mg PO TID 30 Days #90 tab 09/19/17 [Rx Confirmed 10/14/17] [facility] Medical History Heme + stool (Chronic) Acute renal failure superimposed on stage 4 chronic kidney disease (Acute) Radiculopathy affecting upper extremity (Chronic) Iron deficiency anemia (Chronic) Increased PTH level (Chronic) Metabolic acidosis (Acute) Low vitamin D level (Chronic) Paroxysmal atrial fibrillation (Chronic) Chronic renal failure, stage 4 (severe) (Chronic) Nocturnal hypoxia (Chronic) Noncompliance with CPAP treatment (Chronic) LADARIUS (obstructive sleep apnea) (Chronic) Gout (Chronic) History of tobacco abuse (Chronic) Coronary artery disease (Chronic) Hypertension (Chronic) Diabetes mellitus type 2 in obese (Chronic) Non-STEMI (non-ST elevated myocardial infarction) (Chronic) Colon cancer (Acute) Acute exacerbation of chronic obstructive pulmonary disease (COPD) (Resolved) Acute respiratory failure with hypoxemia (Resolved) Influenza B (Resolved) Lower GI bleed (Resolved) Severe sepsis (Resolved) Streptococcal pneumonia (Resolved) Urinary retention due to benign prostatic hyperplasia (Resolved) NSAID long-term use (Inactive) Surgical History Hx of CABG (Chronic) S/P removal of lung (Resolved) Family History Father Leukemia Mother COPD (chronic obstructive pulmonary disease) Social History household members: spouse housing: other details: mobile home current occupational status: disabled pets and animals: Yes pets and animals: dog(s) Smoking Status: Former smoker quit date: 02/14/17 pack-years: 40 second hand exposure: No alcohol intake: never substance use type: does not use FEV1% FEV1%: 37 Review of Systems Const CONSTITUTIONAL: Negative anorexia, body ache, chills, daytime sleepiness, fever(s), night sweats, oral thrush, stops breathing during sleep, weight loss, sleeping in chair, fatigue, weight loss, weight gain, frequent colds, seasonal allergies, other, headache(s) or orthopnea EETM Ear Nose Throat Mouth: Positive hearing normal; negative hard of hearing, hoarseness, dry mouth in morning, change in vision, itchy eyes, eye pain, swallowing Difficulty, ear pain, nose bleed, headache(s), mouth pain, nasal congestion, nasal discharge, post nasal drip, sinus pain, sinus pressure, sore throat or other Cardio Cardiovascular: Negative chest pain, chest pain at rest, chest pain with activity, irregular heart rhythm, edema, shortness of breath when lying down, palpitations, murmur or other Resp Respiratory: Positive as per HPI; negative shortness of breath, pain with cough, wheezing, chest congestion, cough, chest tightness, pain on inspiration, inhalers, increase use of rescue inhalers, snoring, apnea or other Gastro Gastrointestional: Negative bloody stools, change in appetite, difficulty swallowing, reflux, hematemesis, melena stool, loose stool, constipation or other Genitourinary: Negative blood in urine, nocturia, pain with urination or other Musc Musculoskeletal: Negative body pain, back pain, neck pain or other Skin/Breast Skin/Breast: Negative dry skin, itching, rash, unusual bruising, breast lump or other Neuro Neurological: Negative restless legs, confusion, weakness or other Psych Psychocological: Negative abnormal sleep pattern, anxiety, thoughts of hurting self/others, hopelessness or other Lymph Lymphatic: Negative easy bleeding, easy bruising, swollen lymph nodes or other Exam Const Constitutional: Positive conversant, cooperative, in no acute respiratory distress, well developed, well nourished and good hygiene Head Head: Positive normocephalic and atraumatic; negative cyanosis of lips/distal nose Eyes Eye: Positive clear conjunctiva; negative nystagmus or scleral abnormality Ears Ear: Positive hearing normal and external ears normal; negative hard of hearing Nose Nose: Positive external nose normal and no nasal discharge; negative epistaxis Mouth Mouth: Positive dentures, oral mucosae normal, no lesions and crowded posterior oropharynx; negative post nasal drip, malodorous breath or oral thrush present Mallampati Score: III: Mallampati Score Neck Neck: Positive normal visual inspection, full ROM, trachea midline and thick neck; negative lymphadenopathy, JVD or tender Chest Wall Chest: Positive symmetric chest movement and increased A/P diameter Resp lung sounds: Positive clear to auscultation, diminished, normal expiratory time and normal respiratory effort; negative wheezes, rhonchi, rales, dullness to percussion or wheeze present on forced exhalation Cardio Cardiac: Positive regular rate, regular rhythm, S1 normal and S2 normal; negative murmur GI GI: Positive normal to inspection and normal bowel sounds; negative distended Genitourinary: Positive deferred Musc Musculoskeletal: Positive steady gait and ROM normal; negative kyphosis or scoliosis Skin Pulmonary Skin Exam: Positive intact; negative rash, lesion, ulcers, erythema, scaly or dermal atrophy Pulses Pulse: Yes pulses normal x4 extremities Extremities Extremities: No clubbing, No edema, Yes capillary refill normal, No cyanosis Neuro Neurologic: Yes conversant, Yes no focal neuro deficits, Yes normal concentration, Yes understands questions, Yes cooperative, Yes normal cognition, Yes normal coordination, No tremor Lymph Lymphatic: No lymphadenopathy, No tenderness, No cervical adenopathy, No axillary adenopathy Psych Appearance: Positive grossly normal, eye contact and well kempt Mental Status: Positive mental status grossly normal Mood: Positive congruent mood Affect: Positive normal affect Office Procedures Inhaler Training Inhaler Training Procedure performed by: Loan Navarrete Inhaler Training: Yes personally trained on inhaler use, sample provided, first dose given in the office, expresses understanding and continue to monitor Coding Level of Care Code Off vis,est,level 3 Diagnoses Stage 3 severe COPD by GOLD classification J44.9 LADARIUS (obstructive sleep apnea) G47.33 10/14/17 0917 <Electronically signed by Loan Navarrete SOFTWARE QUALITY AUTOMATION ENGINEER-C> Date Loan Navarrete NP-C Allenigner Signature: Date (if applicable) CC: Caesar Chavez PROGRESS Observed: 10/13/2017 Status: COMPLETED Source: [place] 3:42 PM [facility] REPOSITORY HNO ID: [id number] Author: Jeanie Gross Ct Service: (none) Author Type: (none) Type: Progress Notes Filed: 10/13/2017 3:43 PM Note Text: Radiology Service Progress Note PATIENT NAME: Bari Romero DATE OF SERVICE: October 13, 2017 TIME: 3:42 PM PATIENT IDENTITY VERIFICATION COMPLETED USING TWO (2) METHODS: Patient confirmed name verbally and Date of . PATIENT GENDER DATA: Male PATIENT RELEVANT IMPLANT DATA REVIEWED: Not Applicable RADIOLOGY DEPARTMENT: CT; Exam(s) Completed: Chest PERIPHERAL IV DATA: Not applicable SIGNED BY: Jeanie Gross Ct October 13, 2017 3:[address] CHEST WO IVCON Observed: 10/13/2017 Status: F Source: [place] 3:36 PM [facility] REPOSITORY * * *Final Report* * * DATE OF EXAM: Oct 13 2017 3:36PM [facility] 0541 - CT CHEST WO IVCON / PROCEDURE REASON: Malignant neoplasm of colon, unspecified * * * * Physician Interpretation * * * * EXAMINATION: CHEST CT WITHOUT CONTRAST CLINICAL HISTORY: 61-year-old male with history of colon cancer. Surveillance chest CT. Past medical history of COPD, CAD and COPD. History of right upper lobectomy 2009. Technique: Spiral CT acquisition of the chest from the thoracic inlet to the upper abdomen without contrast. MQ: CTCWOR_4 CT Dose-Length Product: 807 mGy*cm CT Dose Reduction Employed: Automated exposure control (AEC) Comparison: None RESULT: Limitations: Respiratory motion. Lines, tubes, and devices: None. Lung parenchyma and pleura: Postoperative changes of right upper lobectomy are noted. There are staple lines with associated architectural distortion and linear scarring in the right lung. There is mosaic attenuation with lobular regions of low attenuation in the lower lobes, likely representing air trapping. There is mild diffuse bronchial wall thickening. There are nonspecific patchy groundglass opacities in the left upper lobe with faint centrilobular nodules, possibly representing respiratory bronchiolitis. Few indeterminate discrete subcentimeter pulmonary nodules are present, measuring up to 5 mm. For reference, 5 mm nodule in the lingula (image 102) and 4 mm nodules in the superior lingula (image 89). 3 mm nodules are identified in the hyperinflated right middle lobe (for example images 43, 46). A linear scar is identified in the medial right lower lobe (image 117). There is no pleural effusion. The trachea and central airways appear patent, devoid of endobronchial lesion. Thoracic inlet, heart, and mediastinum: There are bilateral axillary lymph nodes with central fatty hilum. There is a mildly enlarged 1.3 cm right paratracheal lymph node with central fatty hilum (image 52). Several additional subcentimeter left lower cervical, mediastinal, hilar and right cardiophrenic lymph nodes are present. For reference, 8 mm left mediastinal lymph node at image 93 and 9 mm lymph node in the left mediastinum at image 81). Mediastinal lipomatosis is noted, incidental finding. The cardiac chambers are normal in size. There is no pericardial effusion or thickening. The thoracic aorta and pulmonary arteries are normal in calibre. Minimal atherosclerotic calcifications are noted in the thoracic aorta. Long segment LAD stent is present. Minimal right coronary artery calcifications are present. Mitral annular calcifications are noted. Bones and soft tissues: Chest wall soft tissues are unremarkable. Postoperative changes of right thoracotomy are noted. There is minimal height loss of few lower thoracic vertebral bodies. Endplate degenerative changes are present within the thoracic spine. Upper abdomen: Assessment of the upper abdomen is limited secondary to patient motion. No obvious acute abnormality identified. There is mild calcified atherosclerotic disease of the upper abdominal aorta and its branch vessels. IMPRESSION: 1. Postoperative changes of right upper lobectomy with mild hyperinflation of the right middle lobe. 2. Few indeterminate subcentimeter pulmonary nodules measuring up to 5 mm. Comparison with prior studies if available, otherwise follow-up CT as per clinical protocol is suggested to ensure stability in this patient with known malignancy. 3. Smoking-related air trapping and respiratory bronchiolitis. 4. Subcentimeter thoracic lymph nodes. Stem Lead Former: GENNY Transcribe Date/Time: Oct 14 2017 12:45P Dictated by : MICHAEL RAE MD This examination was interpreted and the report reviewed and electronically signed by: MICHAEL RAE MD on Oct 14 2017 1:46PM EST [id number] PROGRESS Observed: 10/09/2017 Status: COMPLETED Source: [place] 4:37 PM [facility] REPOSITORY HNO ID: [id number] Author: Mireya (Rn) MARY Francois Service: (none) Author Type: Registered Nurse Type: Progress Notes Filed: 10/09/2017 4:44 PM Note Text: ET/WOC NURSING 10/09/2017 ET OUTCOME: Patient here for preop marking and talk. Patient of Dr. Dunn to OR for possible diverting loop ileostomy. Patient watched video and was confused as to what stoma was so time spent educating. Patient verbalized understanding of education. Patient also is aware that if no stoma is placed tattoo is permanent and agreed to marking. TOPIC: preop marking and talk READINESS TO LEARN COGNITIVE ABILITY: Alert and Oriented MOTIVATION TO LEARN: Interested FAMILY SUPPORT: Unable to assess - family not present INSTRUCTION PROVIDED TO: Patient PATIENT LEARNS BEST BY: Multiple Methods FACTORS AFFECTING LEARNING: Emotional Factors: Anxious Fearful Overwhelmed PHYSICAL LIMITATIONS AFFECTING LEARNING: None LEARNING RESPONSE DIAGNOSIS: Colon Cancer PROCEDURE / SURGERY: Loop ileostomy EDUCATION TOPIC/ TEACHING POINTS: Ostomy Care Stoma appearance and function, Purpose of the pouching system, Postoperative ostomy care per ET/WOC Nurse, Postoperative self ostomy care instruction, Discharge equipment ordering and support options, Diet, Fluid Intake, ADL'S, Work, Clothing Adjustment, Exercise and Sexual Intimacy METHOD OF INSTRUCTION: Written instruction - handouts Verbal instruction Video PATIENT / FAMILY RESPONSE: Verbalizing understanding of: Preoperative teaching FOLLOW-UP PLAN: Complete - No need for follow-up SUPPLEMENTAL MATERIAL: Pre op Ostomy Booklets, Preop Ostomy Handouts and Ileostomy Booklet REFERRAL (RECOMMENDATION): None Topic: STOMA MARKING The stoma marking purpose and procedure was explained: yes. The patient verbalized understanding and agrees to the marking: yes. Rectus Muscle boarders are located: yes. Abdominal contour evaluation was performed in the lying position, sitting position and standing position. The stoma marking was made according to ET/WOC Nursing Procedure #401 in the RUQ. Patient is able to see site in the following positions: lying position, sitting position and standing position DIAGRAM: See Medical Imaging printout TIME INCREMENT: 1 hour 15 minutes Electronically Signed By Mireya Francois RN ET/[facility] Nursing CNNURSE Observed: 10/09/2017 Status: COMPLETED Source: [place] 1:00 PM [facility] REPOSITORY Nurse Visit (ABELINO) BARI ROMERO ([id number]) 1955 M Date Time Provider Department 10/09/17 1:00 PM STOMA THERAPY ABELINO During your visit today, we recorded the following information about you: Mireya Francois RN, RN 10/09/2017 4:44 PM Signed ET/[facility] NURSING 10/09/2017 ET OUTCOME: Patient here for preop marking and talk. Patient of Dr. Dunn to OR for possible diverting loop ileostomy. Patient watched video and was confused as to what stoma was so time spent educating. Patient verbalized understanding of education. Patient also is aware that if no stoma is placed tattoo is permanent and agreed to marking. TOPIC: preop marking and talk READINESS TO LEARN COGNITIVE ABILITY: Alert and Oriented MOTIVATION TO LEARN: Interested FAMILY SUPPORT: Unable to assess - family not present INSTRUCTION PROVIDED TO: Patient PATIENT LEARNS BEST BY: Multiple Methods FACTORS AFFECTING LEARNING: Emotional Factors: Anxious Fearful Overwhelmed PHYSICAL LIMITATIONS AFFECTING LEARNING: None LEARNING RESPONSE DIAGNOSIS: Colon Cancer PROCEDURE / SURGERY: Loop ileostomy EDUCATION TOPIC/ TEACHING POINTS: Ostomy Care Stoma appearance and function, Purpose of the pouching system, Postoperative ostomy care per ET/[facility] Nurse, Postoperative self ostomy care instruction, Discharge equipment ordering and support options, Diet, Fluid Intake, ADL'S, Work, Clothing Adjustment, Exercise and Sexual Intimacy METHOD OF INSTRUCTION: Written instruction - handouts Verbal instruction Video PATIENT / FAMILY RESPONSE: Verbalizing understanding of: Preoperative teaching FOLLOW-UP PLAN: Complete - No need for follow-up SUPPLEMENTAL MATERIAL: Pre op Ostomy Booklets, Preop Ostomy Handouts and Ileostomy Booklet REFERRAL (RECOMMENDATION): None Topic: STOMA MARKING The stoma marking purpose and procedure was explained: yes. The patient verbalized understanding and agrees to the marking: yes. Rectus Muscle boarders are located: yes. Abdominal contour evaluation was performed in the lying position, sitting position and standing position. The stoma marking was made according to ET/WOC Nursing Procedure #401 in the RUQ. Patient is able to see site in the following positions: lying position, sitting position and standing position DIAGRAM: See Medical Imaging printout TIME INCREMENT: 1 hour 15 minutes Electronically Signed By Mireya Francois RN ET/WOC Nursing Referring Provider: LUIS DUNN [[id number]] Allergies As of Date: 10/09/2017 (No Known Allergies) Date Reviewed: 10/09/2017 Reviewed by: Dorothy (Rn) MARY Bonner - Fully Assessed Primary Visit Diagnosis:Carcinoma in situ of colon [D01.0] Prescriptions as of 10/09/2017 Sig: SODIUM BICARBONATE 650 MG TAB* Take 1 tablet by mouth three * ASPIRIN 81 MG TABLET,DELAYED * Take 1 tablet by mouth once d* ALBUTEROL SULFATE HFA 90 MCG/* 2 Puffs every 6 hours as need* NOVOLOG FLEXPEN U-100 INSULIN* Inject 10-40 Units subcutaneo* NITROGLYCERIN 0.4 MG SUBLINGU* Dissolve 1 tablet under the t* SIMVASTATIN 80 MG TABLET Take 1 tablet by mouth once d* METOPROLOL SUCCINATE ER 50 MG* Take 1 tablet by mouth once d* PANTOPRAZOLE 40 MG TABLET,DEL* Take 1 tablet by mouth once d* TAMSULOSIN 0.4 MG CAPSULE Take 1 capsule by mouth once * NEOMYCIN 500 MG TABLET Take 2 tablets by mouth at 9p* METRONIDAZOLE 500 MG TABLET Take 1 tablet by mouth at 9pm* ALBUTEROL SULFATE 2.5 MG/3 ML* inhale 1 vial in nebulizer ev* ALLOPURINOL 300 MG TABLET Take 300 mg by mouth once omar* CONTOUR NEXT TEST STRIPS as needed. CILOSTAZOL 100 MG TABLET Take 100 mg by mouth once omar* COLCRYS 0.6 MG TABLET Take 0.6 mg by mouth as neede* DIAZEPAM 10 MG TABLET Take 10 mg by mouth as needed* VITAMIN D2 50,000 UNIT CAPSULE Take 50,000 Units by mouth on* FERROUS SULFATE 325 MG (65 MG* Take 1 tablet by mouth once d* FINASTERIDE 5 MG TABLET Take 5 mg by mouth once daily. HYDRALAZINE 25 MG TABLET Take 25 mg by mouth three quique* TRESIBA FLEXTOUCH U-200 INSUL* Inject 30 Units subcutaneousl* ISOSORBIDE MONONITRATE ER 30 * Take 30 mg by mouth once anabela* OXYCODONE 5 MG TABLET Take 5 mg by mouth twice anabela* POLYMYXIN B SULFATE 10,000 UN* place 1 drop into left eye fo* Problem List As Of Date 10/09/2017 Noted Resolved Chest mass [R22.2] INVALID FOR* Obesity, Class I, BMI 30-34.9 [E66.9] INVALID FOR* Colon cancer (HCC) [C18.9] INVALID FOR* More... 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] INVALID FOR* PVD (peripheral vascular disease) (HCC) [I73.9] INVALID FOR* Chronic obstructive pulmonary disease (HCC) [J4*INVALID FOR* Annotated image of TORSO last updated by Mireya (Mary) MARY Francois on 10/09/2017 4:43 PM Encounter Status:Closed by MIREYA FRANCOIS on 10/09/17 CONFIRM BLOOD TYPE Collected: 10/09/2017 Status: F Source: [place] 12:00 PM [facility] REPOSITORY TYPE CODE TESTS RESULT OUT OF REFERENCE UNITS RANGE LAB %ABR A ABO/RH(D) POSITIVE Performed By: #### CONABO #### [facility] [address] [place], [place] [address] CBC AND DIFFERENTIAL Collected: 10/09/2017 Status: F Source: [place] 11:56 AM [facility] REPOSITORY TYPE CODE TESTS RESULT OUT OF REFERENCE UNITS RANGE LAB WBC 3.70-11.00 k/uL WBC 9.05 LAB RBC 4.20-6.00 m/uL Low RBC 3.97 LAB HGB 13.0-17.0 g/dL Low Hemoglobin 10.3 LAB HCT 39.0-51.0 % Low Hematocrit 34.8 LAB MCV 80.0-100.0 fL MCV 87.7 LAB MCH 26.0-34.0 pG Low MCH 25.9 LAB MCHC 30.5-36.0 g/dL Low MCHC 29.6 LAB RDWCV 11.5-15.0 % RDW-CV High 15.3 LAB PLTCT 150-400 k/uL Platelet Count 336 LAB MPV 9.0-12.7 fL MPV High 12.8 LAB ANEUT % Neut% 67.6 LAB AANEUT 1.45-7.50 k/uL Abs Neut 6.12 LAB ALYMP % Lymph% 17.8 LAB AALYMP 1.00-4.00 k/uL Abs Lymph 1.61 LAB AMONO % Louisa% 7.2 LAB AAMONO <0.87 k/uL Abs Louisa 0.65 LAB AEOS % Eosin% 7.0 LAB AAEOS <0.46 k/uL Abs High Eosin 0.63 LAB ABASO % Baso% 0.4 LAB AABASO <0.11 k/uL Abs Baso 0.04 LAB AUNRBC 0 /100 WBC NRBCs High 0.1 LAB ABNRBC <0.01 k/uL Absolute High nRBC 0.01 LAB DTYP DTYPE Auto Diff Performed By: #### CBCDIF, CMP, FERR, IRON #### [facility] [address], [place] [address] COMP METABOLIC PANEL Collected: 10/09/2017 Status: F Source: [place] 11:56 AM [facility] REPOSITORY TYPE CODE TESTS RESULT OUT OF REFERENCE UNITS RANGE LAB TP 6.3-8.0 g/dL Protein, Total 7.6 LAB ALB 3.9-4.9 g/dL Albumin 4.4 LAB CA 8.5-10.2 mg/dL Calcium, Total 9.7 LAB TBIL 0.2-1.3 mg/dL Bilirubin, Total 0.3 LAB ALKP 36-108 U/L Alkaline Phosphatase 99 LAB AST 14-40 U/L AST 27 LAB GLU 74-99 mg/dL Glucose High 165 Result Comment: The [place] Diabetes Association (ADA) provides guidance for cutoff values for fasting glucose and random glucose. The ADA defines fasting as no caloric intake for at least 8 hours. Fas ting plasma glucose results between 100 to 125 mg/dL indicate increased risk for diabetes (prediabetes). Fasting plasma glucose results greater than or equal to 126 mg/dL meet the criteria for diagnosis of diabetes. In the absence of unequivocal hyperglycemia, results should be confirmed by repeat testing. In a patient with classic symptoms of hyperglycemia or hyperglycemic crisis, random plasma glucose results greater than or equal to 200 mg/dL meet the criteria for diagnosis of diabetes. Reference: Standards of Medical Care in Diabetes 2016, [place] Diabetes Association. Diabetes Care. 2016.39(Suppl 1). LAB BUN 9-24 mg/dL BUN High 25 LAB CRET 0.73-1.22 mg/dL Creatinine High 2.32 LAB NA 136-144 mmol/L Sodium 143 LAB K 3.7-5.1 mmol/L Potassium 4.1 LAB CL 97-105 mmol/L Chloride 101 LAB CO2 22-30 mmol/L CO2 29 LAB AGAP 9-18 mmol/L Anion Gap 13 LAB ALT 10-54 U/L ALT 21 LAB GFRAA eGFR- Amer. 35 LAB GFRNAA . eGFR-All Other Races 29 Result Comment: eGFR (Estimated GFR) Units of measure: mL/min/1.73 meters squared eGFR is derived from the reexpressed MDRD Study equation using the following parameters: serum creatinine, age, gender and race. The creatinine assay has been calibrated to be traceable to IDMS. An eGFR <60 mL/min/1.73m2 for >3 months is consistent with chronic kidney disease. Refer to KDOQI guidelines for clinical interpretation. In patients with unstable renal function, e.g. those with acute kidney injury, the eGFR may not accurately reflect actual GFR. Performed By: #### CBCDIF, CMP, FERR, IRON #### [facility] [address], [place] [address] FERRITIN Collected: 10/09/2017 Status: F Source: [place] 11:56 AM [facility] REPOSITORY TYPE CODE TESTS RESULT OUT OF REFERENCE UNITS RANGE LAB FERR 30.3-565.7 ng/mL Ferritin 45.6 Performed By: #### CBCDIF, CMP, FERR, IRON #### [facility] [address], [place] [address] IRON AND TIBC Collected: 10/09/2017 Status: F Source: [place] 11:56 AM [facility] REPOSITORY TYPE CODE TESTS RESULT OUT OF REFERENCE UNITS RANGE LAB IRN 41-186 ug/dL Iron 108 LAB TIBC 232-386 ug/dL TIBC 370 LAB SAT 15-57 % Transferrin Saturatn 29 Performed By: #### CBCDIF, CMP, FERR, IRON #### [facility] [address], [place] [address] TYPE AND SCREEN Collected: 10/09/2017 Status: F Source: [place] 11:38 AM [facility] REPOSITORY TYPE CODE TESTS RESULT OUT OF REFERENCE UNITS RANGE LAB %ABR A ABO/RH(D) POSITIVE LAB % Antibody NEG Screen Performed By: #### TSCR #### [facility] [address], [place] [address] PROGRESS Observed: 10/09/2017 Status: COMPLETED Source: [place] 11:30 AM [facility] REPOSITORY HNO ID: [id number] Author: Dorothy (Rn) MARY Bonner Service: (none) Author Type: Registered Nurse Type: Progress Notes Filed: 10/10/2017 9:15 AM Note Text: ANESTHESIA PRE-OPERATIVE ASSESSMENT (PACE) SERVICE DATE: 10/09/2017 SERVICE TIME: 1055 ASSESSMENT AND PLAN: Bari Romero is a 61 year old male scheduled for COLECTOMY ABDOMINAL W/O PROCTECTOMY W/ ILEOSTOMY/ILEOPROCTOSTOMY, TOTAL per Surgery Request Case in MAIN on 10/17/17. PMH: 1. Colon ca- for above surgery 2. CAD/CA- s/p 3 NIHKIL to LAD in 2003. Takes imdur, asa (continuing) and plavix- already stopped for surgery. Has not taken nitro in greater than a year. Denies CP. Scheduled for echo later today. EKG today shows NSR. 3. HTN- metoprolol and hydralazine 4. HPL- simvastatin 5. COPD- chronic YODER unchanged. PRN albuterol used 1-2x/week. Has supplemental O2 at home (2L), uses at HS prn but not used regularly. 6. LADARIUS- does not use a cpap. Orthopnea- uses 1-2 pillows 7. Hx of RUL lobectomy in 2009 for benign mass 8. CKD4- labs pending. Hospitalized in August for hyperkalemia and NICK. Takes Na bicarb 9. DM- novolog and tresiba 10. PVD- no hx of intervention, takes pletal- last dose will be October 14 11. Anxiety- valium prn 12. Gout- colchicine and allpurinol 13. GERD- protonix 14. Chronic back pain- oxycodone prn 15. Bad experience with epidural (2009), problem with placement. [facility]: 3 FC: 2-3 METS: Patient denies any chest pain or undue shortness of breath with the above physical activity. states he can go up 1 flight of stairs without sob or cp. Patient WILL accept blood products. BLOOD WORK/PRODUCTS ORDERED: Type and Screen , Con ABO HISTORY OF CHRONIC PAIN: Yes -back- prn oxycodone PAIN MANAGEMENT OPTIONS: Routine/PRN IV and Final pain management plan will be discussed on the day of surgery. ANESTHETIC OPTIONS: General and Final anesthesia management options will be discussed on day of surgery. PRE-OP PLAN ORDERED: Not Applicable Patient Instructed: ? No solid food or non-clear liquids after midnight. Clear liquids allowed until two hours before scheduled arrival. ? Patient instructed to take the following medications with a sip of water: hydralazine, metoprolol, albuterol, protonix, tresiba half dose, na bicarb, asa, oxycodone prn, valium prn. ? Diabetic instructions discussed. Vital Signs: BP 135/75 Pulse 93 Ht 185.4 cm (6' 0.99) Wt 108 kg (238 lb 1.6 oz) SpO2 96% BMI 31.42 kg/m? BMI 31.42 kg/(m2) Vital signs completed by: IMPACT Weight acquired: per HANDP. Height acquired: per HANDP Airway Exam: MOUTH OPENING/TMJ: Full jaw ROM MICROGNATHIA/OVERBITE: No MALLAMPATI SCORE is CLASS II UPPER LIP BITE TEST: Class I - Lower incisors can bite the upper lip above the zackery line DENTITION: dentures- full THYROMENTAL DIST: WNL SHORT NECK: Yes, has long kemp NECK CIRCUMFERENCE >40 cm: Appears < than 40 CM NECK FLEX: Full ROM NECK EXTENSION: Full ROM AIRWAY HISTORY: No abnormal airway history ARKS AIRWAY DETAIL: N/A DATA: EKG READING: Unconfirmed - SR 85 OTHER TESTS: Echo: Date: pending today Patient accompanied by self Case Discussed with Dr Boyd OPTIMIZATION STATUS: Patient optimization pending Labs IMPACT ECHO- IMPACT and PACE SIGNATURE: Dorothy Bonner RN PATIENT NAME: Bari Romero DATE: October 09, 2017 TIME: 11:30 AM PAGER/CONTACT #: 10/10/2017 Addendum: Echo report: CONCLUSIONS: - Technically difficult exam due to body habitus. - Exam indication: Pre-op clearance for non cardiac procedure - The left ventricle is normal in size. There is mild concentric left ventricular hypertrophy. Left ventricular systolic function is normal. EF = 58 ? 5% (2D biplane) Grade I left ventricular diastolic dysfunction. - The right ventricle is normal in size. Right ventricular systolic function is normal. - The patient has not had a prior CC echocardiographic exam for comparison. ? Jovita Adair RN CNOV Observed: 10/09/2017 Status: COMPLETED Source: [place] 10:30 AM [facility] REPOSITORY Office Visit (PSSCMN) BARI ROMERO ([id number]) 1955 M Date Time Provider Department 10/09/17 10:30 AM [facility]SS[facility] During your visit today, we recorded the following information about you: Pulse Blood pressure Weight Height 93/minute 135/75 108 kg 1.854 m Dorohty Bonner RN, RN 10/09/2017 11:41 AM Addendum ANESTHESIA PRE-OPERATIVE ASSESSMENT (PACE) SERVICE DATE: 10/09/2017 SERVICE TIME: 1055 ASSESSMENT AND PLAN: Bari Romero is a 61 year old male scheduled for COLECTOMY ABDOMINAL W/O PROCTECTOMY W/ ILEOSTOMY/ILEOPROCTOSTOMY, TOTAL per Surgery Request Case in MAIN on 10/17/17. PMH: 1. Colon ca- for above surgery 2. CAD/CA- s/p 3 NIKHIL to LAD in 2003. Takes imdur, asa (continuing) and plavix- already stopped for surgery. Has not taken nitro in greater than a year. Denies CP. Scheduled for echo later today. EKG today shows NSR. 3. HTN- metoprolol and hydralazine 4. HPL- simvastatin 5. COPD- chronic YODER unchanged. PRN albuterol used 1-2x/week. Has supplemental O2 at home (2L), uses at HS prn but not used regularly. 6. LADARIUS- does not use a cpap. Orthopnea- uses 1-2 pillows 7. Hx of RUL lobectomy in 2009 for benign mass 8. CKD4- labs pending. Hospitalized in August for hyperkalemia and NICK. Takes Na bicarb 9. DM- novolog and tresiba 10. PVD- no hx of intervention, takes pletal- last dose will be October 14 11. Anxiety- valium prn 12. Gout- colchicine and allpurinol 13. GERD- protonix 14. Chronic back pain- oxycodone prn 15. Bad experience with epidural (2009), problem with placement. [facility]: 3 FC: 2-3 METS: Patient denies any chest pain or undue shortness of breath with the above physical activity. states he can go up 1 flight of stairs without sob or cp. Patient WILL accept blood products. BLOOD WORK/PRODUCTS ORDERED: Type and Screen , Con ABO HISTORY OF CHRONIC PAIN: Yes -back- prn oxycodone PAIN MANAGEMENT OPTIONS: Routine/PRN IV and Final pain management plan will be discussed on the day of surgery. ANESTHETIC OPTIONS: General and Final anesthesia management options will be discussed on day of surgery. PRE-OP PLAN ORDERED: Not Applicable Patient Instructed: ? No solid food or non-clear liquids after midnight. Clear liquids allowed until two hours before scheduled arrival. ? Patient instructed to take the following medications with a sip of water: hydralazine, metoprolol, albuterol, protonix, tresiba half dose, na bicarb, asa, oxycodone prn, valium prn. ? Diabetic instructions discussed. Vital Signs: BP 135/75 Pulse 93 Ht 185.4 cm (6' 0.99) Wt 108 kg (238 lb 1.6 oz) SpO2 96% BMI 31.42 kg/m? BMI 31.42 kg/(m2) Vital signs completed by: IMPACT Weight acquired: per HANDP. Height acquired: per HANDP Airway Exam: MOUTH OPENING/TMJ: Full jaw ROM MICROGNATHIA/OVERBITE: No MALLAMPATI SCORE is CLASS II UPPER LIP BITE TEST: Class I - Lower incisors can bite the upper lip above the zackery line DENTITION: dentures- full THYROMENTAL DIST: WNL SHORT NECK: Yes, has long kemp NECK CIRCUMFERENCE >40 cm: Appears < than 40 CM NECK FLEX: Full ROM NECK EXTENSION: Full ROM AIRWAY HISTORY: No abnormal airway history ARKS AIRWAY DETAIL: N/A DATA: EKG READING: Unconfirmed - SR 85 OTHER TESTS: Echo: Date: pending today Patient accompanied by self Case Discussed with Dr Boyd OPTIMIZATION STATUS: Patient optimization pending Labs IMPACT ECHO- IMPACT and PACE SIGNATURE: Dorothy Bonner RN PATIENT NAME: Bari Romero DATE: October 09, 2017 TIME: 11:30 AM PAGER/CONTACT #: 10/10/2017 Addendum: Echo report: CONCLUSIONS: - Technically difficult exam due to body habitus. - Exam indication: Pre-op clearance for non cardiac procedure - The left ventricle is normal in size. There is mild concentric left ventricular hypertrophy. Left ventricular systolic function is normal. EF = 58 ? 5% (2D biplane) Grade I left ventricular diastolic dysfunction. - The right ventricle is normal in size. Right ventricular systolic function is normal. - The patient has not had a prior CC echocardiographic exam for comparison. ? Jovita Adair RN Referring Provider: LUIS DUNN [[id number]] Allergies As of Date: 10/09/2017 (No Known Allergies) Date Reviewed: 10/09/2017 Reviewed by: Dorothy (Mary) MARY Bonner - Fully Assessed Primary Visit Diagnosis:Pre-op evaluation [Z01.818] Prescriptions as of 10/09/2017 Sig: SODIUM BICARBONATE 650 MG TAB* Take 1 tablet by mouth three * ASPIRIN 81 MG TABLET,DELAYED * Take 1 tablet by mouth once d* ALBUTEROL SULFATE HFA 90 MCG/* 2 Puffs every 6 hours as need* NOVOLOG FLEXPEN U-100 INSULIN* Inject 10-40 Units subcutaneo* NITROGLYCERIN 0.4 MG SUBLINGU* Dissolve 1 tablet under the t* SIMVASTATIN 80 MG TABLET Take 1 tablet by mouth once d* METOPROLOL SUCCINATE ER 50 MG* Take 1 tablet by mouth once d* PANTOPRAZOLE 40 MG TABLET,DEL* Take 1 tablet by mouth once d* TAMSULOSIN 0.4 MG CAPSULE Take 1 capsule by mouth once * NEOMYCIN 500 MG TABLET Take 2 tablets by mouth at 9p* METRONIDAZOLE 500 MG TABLET Take 1 tablet by mouth at 9pm* ALBUTEROL SULFATE 2.5 MG/3 ML* inhale 1 vial in nebulizer ev* ALLOPURINOL 300 MG TABLET Take 300 mg by mouth once omar* CONTOUR NEXT TEST STRIPS as needed. CILOSTAZOL 100 MG TABLET Take 100 mg by mouth once omar* COLCRYS 0.6 MG TABLET Take 0.6 mg by mouth as neede* DIAZEPAM 10 MG TABLET Take 10 mg by mouth as needed* VITAMIN D2 50,000 UNIT CAPSULE Take 50,000 Units by mouth on* FERROUS SULFATE 325 MG (65 MG* Take 1 tablet by mouth once d* FINASTERIDE 5 MG TABLET Take 5 mg by mouth once daily. HYDRALAZINE 25 MG TABLET Take 25 mg by mouth three quique* TRESIBA FLEXTOUCH U-200 INSUL* Inject 30 Units subcutaneousl* ISOSORBIDE MONONITRATE ER 30 * Take 30 mg by mouth once anabela* OXYCODONE 5 MG TABLET Take 5 mg by mouth twice anabela* POLYMYXIN B SULFATE 10,000 UN* place 1 drop into left eye fo* Problem List As Of Date 10/09/2017 Noted Resolved Chest mass [R22.2] INVALID FOR* Obesity, Class I, BMI 30-34.9 [E66.9] INVALID FOR* Colon cancer (HCC) [C18.9] INVALID FOR* More... 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] INVALID FOR* PVD (peripheral vascular disease) (HCC) [I73.9] INVALID FOR* Chronic obstructive pulmonary disease (HCC) [J4*INVALID FOR* Encounter Status:Closed by DOROTHY BONNER on 10/09/17 Chart Close Cosign Accepted by: ROBERTO BOYD MD[[id number]] Chart Close Cosign Accepted on: FriOct 09, 2017 4:11 PM CNOV Observed: 10/09/2017 Status: COMPLETED Source: [place] 9:15 AM [facility] REPOSITORY Office Visit (IMPAMN) BARI ROMERO ([id number]) 1955 M Date Time Provider Department 10/09/17 9:15 AM YAQUELIN BLANCO During your visit today, we recorded the following information about you: Temperature Pulse Blood pressure Weight 98.2 degrees 93/minute 135/75 108 kg Height 1.854 m Yaquelin Blanco MD 10/09/2017 4:22 PM Addendum HISTORY AND PHYSICAL EXAMINATION (IMPACT) SERVICE DATE: 10/09/2017 SERVICE TIME: 8:54 AM PRIMARY CARE PHYSICIAN: Caesar Chavez DO CHIEF COMPLAINT/HISTORY OF PRESENT ILLNESS: Mr. Romero is a 61 year old male referred to me for preoperative evaluation. My final recommendations will be communicated back to the requesting physician/surgeon by the way of the shared medical record. Referring Surgeon: Dr. Dunn Date of Surgery: 10/17/2017 Planned Surgery/Procedure: COLECTOMY ABDOMINAL W/O PROCTECTOMY W/ ILEOSTOMY/ILEOPROCTOSTOMY, TOTAL Indication for Planned Surgery / Procedure: Colon Cancer Refer to Assessment section for details of any comorbidities. PMH: 1) New diagnosis of colon Ca - biopsy proven CA of the hepatic flexure 2) BPH - on proscar 3) CAD - s/p 3 stents in 2003 -on Asprin and Plavix (stopped 2 weeks ago) - ran out of asprin, had LHC in 2009 4) HTN on hydralazine and iso 4) T2DM on insulin Novolog sliding scale with meals Tresiba 30 units AM 5) COPD on rescue inhalers only 2/week SOB after 1 flight of stairs Exacerbation outpatient 8 months ago GOLD classification - A/B 6) CKD - stage 4 , on bicarbonate 7) LADARIUS - on CPAP prn 8) Right thoracotomy with 2 lobectomies in 2009 benign mass 9)Gout - on allopurinol 10) Cilostazol for PVD 11) Anxiety - on valium prn Recent hospitalization 08/2017 hyperkalemia Tx medically Not on steroids Baseline SOB NYHA class 2, no chest pain Patient is Able to Perform the Following Physical Activity: Climb a flight of stairs or walk up a hill (5.50 METs) Patient's functional class is II based on self-reported physical activity. Significant Anesthesia Considerations: None. PAST MEDICAL/SURGICAL/FAMILY/SOCIAL HISTORY PAST MEDICAL HISTORY Diagnosis Date - BPH (benign prostatic hyperplasia) - CAD (coronary artery disease) s/p stenting (NIKHIL) to LAD x3 in 2003 - CKD (chronic kidney disease) stage 4, GFR 15-29 ml/min ([facility]) - Colon cancer ([facility]) - COPD (chronic obstructive pulmonary disease) ([facility]) - DM (diabetes mellitus) ([facility]) - Gout - Hematest positive stools - HTN (hypertension) - Increased PTH level - Influenza B - Iron deficiency anemia - Low vitamin D level - Lower GI bleed - Metabolic acidosis - Nocturnal hypoxia - Non-STEMI (non-ST elevated myocardial infarction) ([facility]) - NSAID long-term use - LADARIUS (obstructive sleep apnea) not using CPAP - PVD (peripheral vascular disease) ([facility]) - Renal failure - Respiratory failure ([facility]) - S/P lobectomy of lung RUL Lobectomy 2009 - Severe sepsis ([facility]) PAST SURGICAL HISTORY Procedure Laterality Date - LOBECTOMY, SEGMENT RUL lobectomy 2009 - SKULL skull surgery FAMILY HISTORY Problem Relation Age of Onset - COPD Mother - Leukemia Father SOCIAL HISTORYSocial History Marital status: Spouse name: Years of education: Number of children: Social History Main Topics Smoking status: Former Smoker Packs/day: 0.00 Years: 0.00 Smokeless tobacco: Never Used Alcohol use: No Drug use: No MEDICATIONS/ALLERGIES Current Outpatient Prescriptions: sodium bicarbonate 650 mg tablet Take 1 tablet by mouth three times daily. Disp: Rfl: NOVOLOG FLEXPEN U-100 INSULIN 100 unit/mL inpn Inject 10-40 Units subcutaneously three times daily before meals. Sliding Scale Disp: Rfl: 0 neomycin 500 mg tablet Take 2 tablets by mouth at 9pm and take 2 tablets by mouth at 11pm the night before surgery. Disp: 4 tablet Rfl: 0 metroNIDAZOLE (FLAGYL) 500 mg tablet Take 1 tablet by mouth at 9pm and take 1 tablet by mouth at 11pm the night before surgery. Disp: 2 tablet Rfl: 0 albuterol (PROVENTIL) 2.5 mg /3 mL (0.083 %) nebulizer solution inhale 1 vial in nebulizer every 4 to 6 hours if needed for shortness of breath or wheezing Disp: Rfl: 0 allopurinol (ZYLOPRIM) 300 mg tablet Take 300 mg by mouth once daily. Disp: Rfl: 0 CONTOUR NEXT TEST STRIPS test strip as needed. Disp: Rfl: 0 cilostazol (PLETAL) 100 mg tablet Take 100 mg by mouth once daily. Disp: Rfl: 0 COLCRYS 0.6 mg tablet Take 0.6 mg by mouth as needed. Disp: Rfl: 0 diazePAM (VALIUM) 10 mg tablet Take 10 mg by mouth as needed. Disp: Rfl: 0 VITAMIN D 50,000 unit capsule Take 50,000 Units by mouth once each week. Disp: Rfl: 0 ferrous sulfate 325 mg (65 mg iron) tablet Take 1 tablet by mouth once daily. Disp: Rfl: 0 finasteride (PROSCAR) 5 mg tablet Take 5 mg by mouth once daily. Disp: Rfl: 0 hydrALAZINE (APRESOLINE) 25 mg tablet Take 25 mg by mouth three times daily. Disp: Rfl: 0 TRESIBA FLEXTOUCH U-200 200 unit/mL (3 mL) injection Inject 30 Units subcutaneously once daily. Per pt. 10/09/17 Disp: Rfl: 0 isosorbide mononitrate ER (IMDUR) 30 mg 24 hr tablet Take 30 mg by mouth once daily. Disp: Rfl: 0 oxyCODONE IR (ROXICODONE) 5 mg immediate release tablet Take 5 mg by mouth twice daily as needed. Disp: Rfl: 0 trimethoprim-polymyxin eye drops (POLYTRIM) ophthalmic solution place 1 drop into left eye four times a day Disp: Rfl: 0 aspirin, enteric coated (ECOTRIN LOW STRENGTH) 81 mg EC tablet Take 1 tablet by mouth once daily. Disp: Rfl: albuterol HFA (PROAIR HFA) 90 mcg/actuation inhaler 2 Puffs every 6 hours as needed for Wheezing/Shortness of Breath. Take as directed Disp: Rfl: nitroglycerin sublingual (NITROQUICK) 0.4 mg SL tablet Dissolve 1 tablet under the tongue as needed for Chest Pain. If no pain relief call 911. Disp: Rfl: simvastatin (ZOCOR) 80 mg tablet Take 1 tablet by mouth once daily. Disp: Rfl: metoprolol succinate ER (TOPROL XL) 50 mg 24 hr tablet Take 1 tablet by mouth once daily. Disp: Rfl: pantoprazole DR (PROTONIX) 40 mg tablet Take 1 tablet by mouth once daily. Disp: Rfl: tamsulosin ER (FLOMAX) 0.4 mg cap Take 1 capsule by mouth once daily. Disp: Rfl: No current facility-administered medications for this visit. ALLERGIES No Known Allergies * Full med rec done with pt utilizing recent discharge paperwork. REVIEW OF SYSTEMS General: No weight loss, malaise or fevers. Neuro: No history of TIA's, stroke, ON AIR DIRECTOR tumor, impaired sensorium, hemiplegia, paraplegia or quadriplegia. No neurological symptoms or problems. Respiratory: COPD, LADARIUS but not using CPAP, s/p RUL lobectomy in 2009. Chronic YODER with approx 1-2 city blocks which is unchanged Cardiovascular: HTN on meds, CAD s/p stenting in 2003, denies chest pain. Denies PND. Reports intermittent pedal edema and sleeps with 1-2 pillows at night. Denies afib. GI: Colon cancer. No significant EtOH : CKD4. Recent NICK and hyperK admission 09/2017 Endocrine: IDDM recently controlled, took steroid course x1wk 2mo ago Hematology: ASA 81, stopped plavix 2 weeks ago. Oncology: Colon cancer Psych: No history of psychiatric symptoms or problems. PHYSICAL EXAM VITALS: BP 135/75 Pulse 93 Temp (Src) 98.2 (Oral) Ht 6' 1 (1.85m) Wt 238 lb (108.0kg) SpO2 96% BMI 31.41 kg/(m2). General: Alert and oriented, obese, in NAD Skin: abrasions on L kennedy HEENT: EOM, pupils equal, round and reactive. Cardiovascular: RRR, no JVD, no appreciable murmurs Lungs: Normal breath sounds, no wheezes or crackles. Abdomen: Soft, non-tender, no rigidity. Extremities: 1+ pitting edema bilaterally, calves symmetric, no gross abnormalityes Neurological: Normal cognition and motor skills. Pulses: Carotid and radial pulses normal +2. ASSESSMENT Mr. Romero is a 61 year old male referred to me for preoperative evaluation. Patient has the following medical comorbidities which might affect the perioperative course: - New diagnosis of colon Ca - biopsy proven CA of the hepatic flexure - CAD: s/p stenting x3 in 2003, on ASA/statin/BB, plavix stopped 2wks ago, denies angina - HTN: controlled on meds - T2DM: on insulin, last A1C 6.6% in 09/2017, c/b CKD, on novolog TID by SSI and tresiba 30 units QAM which was previously 60 units BID - COPD: chronic YODER, uses albuterol PRN, Exacerbation outpatient 8 months ago in the setting of flu - CKD4: recent Cr 2.4 on 09/18/17, recent NICK with Cr > 4 earlier in September, on Na bicar - LADARIUS: not using CPAP - RUL lobectomy for benign lung mass in 2009 - Gout: on allopurinol - PVD: with LE claudication, improved on cilastozol Patient's RCRI (Revised Cardiac Risk Index: CAD/CHF/Stroke or TIA/SCr>2/DM on Insulin/High Risk Surgery) score is 3 and is at elevated risk for major adverse cardiac events in the perioperative period. Diagnostic tests reviewed for today's visit: Labs pending EKG 10/09/2017: sinus, 85, 1st degree AV block normal axis. PLAN/RECOMMENDATIONS CARDIAC: - RCRI of 3 with approx 4 METS functional status. Pt without angina. In the setting of chronic YODER and LE edema on exam, will get a TTE. Do not see clear need for stress testing as unlikely to change mgmt in the setting of time-sensitive surgery for colon cancer. Discussed elevated risk for CV complications and this rationale with pt and he expressed understanding of this. - continue ASA 81 uninterrupted given coronary stenting - cont metop uninterrupted - cont imdur/hyral as tolerated pending BPs PULMONARY: Patient is at increased risk for postoperative pulmonary complications. Suggest the following in the post-operative period: Continue bronchodilator medications, Aggressive bronchopulmonary hygiene, Minimize sedation/opioids as patient has LADARIUS and Early ambulation - Discussed increased risk for pulm complications with pt including PNA and postop resp failure and he expressed understanding of this. ENDOCRINE: DIABETES: - Initiate [facility] Guidelines for perioperative diabetes management. Check finger stick glucose on the morning of surgery. - Patient has been instructed on Preoperative DM medication management. RENAL: Increased risk of renal complications given advanced CKD and recent admission for NICK and hyperK. - Suggest following in the postoperative period due to patient's pre-existing renal disease: Avoid nephrotoxic medications Dose medications on estimated serum creatinine clearance Monitor fluid balance closely and avoid hypotension. Avoid dehydration / volume depletion Monitor serum creatinine - BMP today pending. Will consider nephro preop eval pending labs today - monitor labs carefully postop. - cont Na bicarb tabs VASCULAR/ANTICOAGULATION: VTE prophylaxis as deemed appropriate by the surgical service. Pt at elevated risk for postop VTE given malignancy. Pt is at elevated by acceptable risk to proceed with surgery pending labs and echo. Consider medicine consult to assist with medical comorbidities postop. Patient Instructions: As per patient instructions section. I have discussed the above recommendations with the patient in detail, in jovita and lay terms, and provided a written summary of instructions as needed. We have discussed that no surgery is without risk, but that the goal of preoperative assessment is to optimize that risk, and that was clearly understood by the patient. I have given ample opportunity for the patient to ask questions, and answered all questions to their stated satisfaction. SIGNATURE: Ronal Reyes MD PATIENT NAME: Bari Romero DATE: October 09, 2017 TIME: 8:54 AM [facility] STAFF PHYSICIAN NOTE OF PERSONAL INVOLVEMENT IN CARE I have reviewed the history and physical examination obtained and documented by the resident and I personally participated in the giang components. I have discussed the case and management of the patient's care. The following comments revise or confirm relevant giang components of their note. The above note has been reviewed and edited to reflect my history, exam and clinical decision-making. 61M with h/o CAD s/p stenting x3 in 2004, CKD4, IDDM (last A1C 6.6% 09/2017), COPD, HTN, LADARIUS, s/p RUL lobectomy in 2009, gout and recently diagnosed colon cancer presents for preop prior to colectomy on 8/3. RCRI = 3. Pt with close to 4 METS - can walk 1-2 city blocks and thinks he can climb 1 flight of stairs but does not do so regularly. Has chronic YODER that is unchanged. Activity limited more by LE claudication, which has improved since starting cilastozol. Admitted early September in [place] for hyperK (K > 6) and NICK with Cr > 4. Cr improved to 2.5 on 09/18/17. Seen by nephro (Dr. Daysi Magana) during admission to [place]. Assessment and plan updated per above. SIGNATURE: Yaquelin Blanco MD PAGER: [phone] DATE of SERVICE: 10/09/2017 TIME of SERVICE: 10:14 AM Addendum: TTE reviewed. No WMA. EF WNL. - The left ventricle is normal in size. There is mild concentric left ventricular hypertrophy. Left ventricular systolic function is normal. EF = 58 ? 5% (2D biplane) Grade I left ventricular diastolic dysfunction. - The right ventricle is normal in size. Right ventricular systolic function is normal. - The patient has not had a prior CC echocardiographic exam for comparison. Yaquelin Blanco MD 10/09/2017 3:10 PM Addendum: Labs reviewed and acceptable for surgery. Cr stable from recent baseline of 2.4. K WNL. Estimated Creatinine Clearance: 42.5 mL/min (A) (based on SCr of 2.32 mg/dL (H)). Given Cr stability and CrCl, no need to see nephro here at [facility] preop. Component Latest Ref Rng AND Units 10/09/2017 WBC 3.70 - 11.00 k/uL 9.05 RBC 4.20 - 6.00 m/uL 3.97 (L) Hemoglobin 13.0 - 17.0 g/dL 10.3 (L) Hematocrit 39.0 - 51.0 % 34.8 (L) MCV 80.0 - 100.0 fL 87.7 MCH 26.0 - 34.0 pG 25.9 (L) MCHC 30.5 - 36.0 g/dL 29.6 (L) RDW-CV 11.5 - 15.0 % 15.3 (H) Platelet Count 150 - 400 k/uL 336 MPV 9.0 - 12.7 fL 12.8 (H) Neut% % 67.6 Abs Neut (ANC) 1.45 - 7.50 k/uL 6.12 Lymph% % 17.8 Abs Lymph 1.00 - 4.00 k/uL 1.61 Louisa% % 7.2 Abs Louisa <0.87 k/uL 0.65 Eosin% % 7.0 Abs Eosin <0.46 k/uL 0.63 (H) Baso% % 0.4 Abs Baso <0.11 k/uL 0.04 Nucleated Reds 0 /100 WBC 0.1 (H) Absolute nRBC <0.01 k/uL 0.01 (H) Diff Type Auto Diff Protein, Total 6.3 - 8.0 g/dL 7.6 Albumin 3.9 - 4.9 g/dL 4.4 Calcium 8.5 - 10.2 mg/dL 9.7 Bilirubin, Total 0.2 - 1.3 mg/dL 0.3 Alkaline Phosphatase 36 - 108 U/L 99 AST 14 - 40 U/L 27 Glucose 74 - 99 mg/dL 165 (H) BUN 9 - 24 mg/dL 25 (H) Creatinine 0.73 - 1.22 mg/dL 2.32 (H) Sodium 136 - 144 mmol/L 143 Potassium 3.7 - 5.1 mmol/L 4.1 Chloride 97 - 105 mmol/L 101 CO2 22 - 30 mmol/L 29 Anion Gap 9 - 18 mmol/L 13 ALT 10 - 54 U/L 21 eGFR- 35 eGFR-All Other Races . 29 Iron 41 - 186 ug/dL 108 TIBC 232 - 386 ug/dL 370 Transferrin Saturation 15 - 57 % 29 Ferritin 30.3 - 565.7 ng/mL 45.6 Yaquelin Blanco MD 10/09/2017 4:20 PM Nicky Knox LPN 10/09/2017 11:03 AM Signed Bari Romero is a 61 year old male here today for visit in [place] Referring Surgeon: Dr. Dunn Date of Surgery: 10/17/2017 Planned Surgery/Procedure: COLECTOMY ABDOMINAL W/O Allergies have been reviewed and verified. They include the following: Patient has no known allergies. Social History Substance Use Topics - Smoking status: Former Smoker - Smokeless tobacco: Never Used - Alcohol use No Medications reviewed and updated: Yes Nicky Reyes MD 10/09/2017 9:41 AM Addendum [facility] Patient Instructions for Surgery We will arrange an ultrasound of your heart called an echo prior to surgery. You will be called with details of this test. FOOD INSTRUCTIONS: NO solid food or non-clear liquids for 8 hours prior to the arrival time for your surgery. Unless you are instructed otherwise, you are allowed to drink up to 12 ounces of clear liquids (e.g. water, black tea/coffee, fruit juice without pulp, Naif Norma, etc.) up until 2 hours prior to the arrival time for surgery. MEDICATION INSTRUCTIONS: Prior to Surgery: Do not take the following medications for 7 days prior to surgery: - any NSAID's (e.g. Motrin, Aleve, Arthrotec, Naproxen,etc) - any herbal preparations - Plavix Do not take any Vitamin E / multivitamins for 10-14 days before surgery You are allowed to take Tylenol if needed until the day of surgery. Do NOT STOP YOUR ASPIRIN as you have a cardiac/coronary stent. MEDICATION INSTRUCTIONS: Day/Morning of Surgery: The following medications should be taken with sips of water: Metoprolol, hydralazine, isosorbide (Imdur), sodium bicarbonate, protonix (Pantoprazole), aspirin DIABETES MANAGEMENT INSTRUCTIONS: Eat a usual diet until the day prior to surgery unless indicated by your surgeon/physician. If your blood sugar is below 70 mg/dl at any time, treat with ? cup of apple juice or naif norma, or 4 glucose tabs or 1 tube of oral glucose gel. MEDICATION INSTRUCTIONS: Prior to Surgery: ? Continue your insulin like usual MEDICATION INSTRUCTIONS: Day/Morning of Surgery: ? No Novolog insulin ? Please take HALF of your usual dose of tresiba insulin which will be 15 units in the morning before you come in for surgery If you have any questions or concerns regarding today's visit please do not hesitate to contact the [facility] at [phone] or [phone], ext [phone]. Signature: Yaquelin Blanco MD Date: October 09, 2017 Referring Provider: LUIS DUNN [[id number]] Allergies As of Date: 10/09/2017 (No Known Allergies) Date Reviewed: 10/09/2017 Reviewed by: Dorothy (Rn) MARY Bonner - Fully Assessed Primary Visit Diagnosis:Pre-operative examination [Z01.818] Other Visit Diagnoses:Coronary artery disease involving [place] coronary artery of [place] heart without angina pectoris [I25.10] Malignant neoplasm of hepatic flexure (HCC) [C18.3] CKD (chronic kidney disease) stage 4, GFR 15-29 ml/min (HCC) [N18.4] Type 2 diabetes mellitus with stage 4 chronic kidney disease, with long-term current use of insulin (HCC) [E11.22, N18.4, Z79.4] Essential hypertension [I10] LADARIUS (obstructive sleep apnea) [G47.33] Chronic gout without tophus, unspecified cause, unspecified site [M1A.9XX0] PVD (peripheral vascular disease) ([facility]) [I73.9] Chronic obstructive pulmonary disease, unspecified COPD type (HCC) [J44.9] Order(s):sodium bicarbonate 650 mg tabletTake 1 tablet by mouth three times daily.Disp: Rfl: aspirin, enteric coated (ECOTRIN LOW STRENGTH) 81 mg EC tabletTake 1 tablet by mouth once daily.Disp: Rfl: albuterol HFA (PROAIR HFA) 90 mcg/actuation inhaler2 Puffs every 6 hours as needed for Wheezing/Shortness of Breath. Take as directedDisp: Rfl: NOVOLOG FLEXPEN U-100 INSULIN 100 unit/mL inpnInject 10-40 Units subcutaneously three times daily before meals. Sliding ScaleDisp: Rfl: 0 nitroglycerin sublingual (NITROQUICK) 0.4 mg SL tabletDissolve 1 tablet under the tongue as needed for Chest Pain. If no pain relief call 911.Disp: Rfl: simvastatin (ZOCOR) 80 mg tabletTake 1 tablet by mouth once daily.Disp: Rfl: metoprolol succinate ER (TOPROL XL) 50 mg 24 hr tabletTake 1 tablet by mouth once daily.Disp: Rfl: pantoprazole DR (PROTONIX) 40 mg tabletTake 1 tablet by mouth once daily.Disp: Rfl: tamsulosin ER (FLOMAX) 0.4 mg capTake 1 capsule by mouth once daily.Disp: Rfl: KARINA [[id number]] Order #: [id number]: 1 FUTURE Prescriptions as of 10/09/2017 Sig: SODIUM BICARBONATE 650 MG TAB* Take 1 tablet by mouth three * NOVOLOG FLEXPEN U-100 INSULIN* Inject 10-40 Units subcutaneo* NEOMYCIN 500 MG TABLET Take 2 tablets by mouth at 9p* METRONIDAZOLE 500 MG TABLET Take 1 tablet by mouth at 9pm* ALBUTEROL SULFATE 2.5 MG/3 ML* inhale 1 vial in nebulizer ev* ALLOPURINOL 300 MG TABLET Take 300 mg by mouth once omar* CONTOUR NEXT TEST STRIPS as needed. CILOSTAZOL 100 MG TABLET Take 100 mg by mouth once omar* COLCRYS 0.6 MG TABLET Take 0.6 mg by mouth as neede* DIAZEPAM 10 MG TABLET Take 10 mg by mouth as needed* VITAMIN D2 50,000 UNIT CAPSULE Take 50,000 Units by mouth on* FERROUS SULFATE 325 MG (65 MG* Take 1 tablet by mouth once d* FINASTERIDE 5 MG TABLET Take 5 mg by mouth once daily. HYDRALAZINE 25 MG TABLET Take 25 mg by mouth three quique* TRESIBA FLEXTOUCH U-200 INSUL* Inject 30 Units subcutaneousl* ISOSORBIDE MONONITRATE ER 30 * Take 30 mg by mouth once anabela* OXYCODONE 5 MG TABLET Take 5 mg by mouth twice anabela* POLYMYXIN B SULFATE 10,000 UN* place 1 drop into left eye fo* ASPIRIN 81 MG TABLET,DELAYED * Take 1 tablet by mouth once d* ALBUTEROL SULFATE HFA 90 MCG/* 2 Puffs every 6 hours as need* NITROGLYCERIN 0.4 MG SUBLINGU* Dissolve 1 tablet under the t* SIMVASTATIN 80 MG TABLET Take 1 tablet by mouth once d* METOPROLOL SUCCINATE ER 50 MG* Take 1 tablet by mouth once d* PANTOPRAZOLE 40 MG TABLET,DEL* Take 1 tablet by mouth once d* TAMSULOSIN 0.4 MG CAPSULE Take 1 capsule by mouth once * Medication notes this encounter COLCRYS 0.6 MG TABLET >> Nicky Knox LPN 10/09/2017 9:03 AM >> NICKY SALCEDO* Shari Oct 09, 2017 9:03 AM Problem List As Of Date 10/09/2017 Noted Resolved Chest mass [R22.2] INVALID FOR* Obesity, Class I, BMI 30-34.9 [E66.9] INVALID FOR* Colon cancer (HCC) [C18.9] INVALID FOR* More... 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] INVALID FOR* PVD (peripheral vascular disease) (HCC) [I73.9] INVALID FOR* Chronic obstructive pulmonary disease (HCC) [J4*INVALID FOR* Other instructions from your clinician: [facility] Patient Instructions for Surgery We will arrange an ultrasound of your heart called an echo prior to surgery. You will be called with details of this test. FOOD INSTRUCTIONS: NO solid food or non-clear liquids for 8 hours prior to the arrival time for your surgery. Unless you are instructed otherwise, you are allowed to drink up to 12 ounces of clear liquids (e.g. water, black tea/coffee, fruit juice without pulp, Naif Norma, etc.) up until 2 hours prior to the arrival time for surgery. MEDICATION INSTRUCTIONS: Prior to Surgery: Do not take the following medications for 7 days prior to surgery: - any NSAID's (e.g. Motrin, Aleve, Arthrotec, Naproxen,etc) - any herbal preparations - Plavix Do not take any Vitamin E / multivitamins for 10-14 days before surgery You are allowed to take Tylenol if needed until the day of surgery. Do NOT STOP YOUR ASPIRIN as you have a cardiac/coronary stent. MEDICATION INSTRUCTIONS: Day/Morning of Surgery: The following medications should be taken with sips of water: Metoprolol, hydralazine, isosorbide (Imdur), sodium bicarbonate, protonix (Pantoprazole), aspirin DIABETES MANAGEMENT INSTRUCTIONS: Eat a usual diet until the day prior to surgery unless indicated by your surgeon/physician. If your blood sugar is below 70 mg/dl at any time, treat with ? cup of apple juice or naif norma, or 4 glucose tabs or 1 tube of oral glucose gel. MEDICATION INSTRUCTIONS: Prior to Surgery: ? Continue your insulin like usual MEDICATION INSTRUCTIONS: Day/Morning of Surgery: ? No Novolog insulin ? Please take HALF of your usual dose of tresiba insulin which will be 15 units in the morning before you come in for surgery If you have any questions or concerns regarding today's visit please do not hesitate to contact the [facility] at [phone] or [phone], ext [phone]. Signature: Yaquelin Blanco MD Date: October 09, 2017 Prescriptions ordered this encounter Disp Refills Start End SODIUM BICARBONATE 650 MG TABLET 10/09/2017 Class: Med Update Route: ORAL Sig: Take 1 tablet by mouth three times daily. ASPIRIN 81 MG TABLET,DELAYED RELEASE 10/09/2017 Class: Med Update Route: ORAL Sig: Take 1 tablet by mouth once daily. ALBUTEROL SULFATE HFA 90 MCG/ACTUATI* 10/09/2017 Class: Med Update Route: OTHER Si Puffs every 6 hours as needed for Wheezing/Shortness of Breath. Take as directed NOVOLOG FLEXPEN U-100 INSULIN ASPART* 0 10/09/2017 10/09/2017 Class: Med Update Route: SUBCUTANEOUS Sig: Inject 5-20 Units subcutaneously three times daily before meals. Sliding Scale NOVOLOG FLEXPEN U-100 INSULIN ASPART* 0 10/09/2017 Class: Med Update Route: SUBCUTANEOUS Sig: Inject 10-40 Units subcutaneously three times daily before meals. Sliding Scale NITROGLYCERIN 0.4 MG SUBLINGUAL TABL* 10/09/2017 Class: Med Update Route: SUBLINGUAL Sig: Dissolve 1 tablet under the tongue as needed for Chest Pain. If no pain relief call 911. SIMVASTATIN 80 MG TABLET 10/09/2017 Class: Med Update Route: ORAL Sig: Take 1 tablet by mouth once daily. METOPROLOL SUCCINATE ER 50 MG TABLET* 10/09/2017 Class: Med Update Route: ORAL Sig: Take 1 tablet by mouth once daily. PANTOPRAZOLE 40 MG TABLET,DELAYED RE* 10/09/2017 Class: Med Update Route: ORAL Sig: Take 1 tablet by mouth once daily. TAMSULOSIN 0.4 MG CAPSULE 10/09/2017 Class: Med Update Route: ORAL Sig: Take 1 capsule by mouth once daily. Medications Discontinued During This Encounter lisinopril (ZESTRIL, PRINIVIL) 20 mg* 0 07/01/2017 10/09/2017 Class: Historical Med Route: ORAL Sig: Take 20 mg by mouth once daily. Disc: Discontinued by Patient sodium bicarbonate 650 mg tablet 0 09/23/2017 10/09/2017 Class: Historical Med Route: ORAL Sig: Take 650 mg by mouth twice daily. Disc: Reason for discontinue is not on file. NOVOLOG FLEXPEN U-100 INSULIN 100 un* 0 09/08/2017 10/09/2017 Class: Historical Med Route: SUBCUTANEOUS Sig: Inject subcutaneously. Sliding Scale Disc: Reason for discontinue is not on file. NOVOLOG FLEXPEN U-100 INSULIN 100 un* 0 10/09/2017 10/09/2017 Class: Med Update Route: SUBCUTANEOUS Sig: Inject 5-20 Units subcutaneously three times daily before meals. Sliding Scale Disc: Reason for discontinue is not on file. diazePAM (VALIUM) 5 mg tablet 0 08/01/2017 10/09/2017 Class: Historical Med Sig: take 1 tablet by mouth twice a day for INVOLUNTARY MUSCLE SPASM Disc: Duplicate Entry Encounter Status:Closed by YAQUELIN BLANCO MD on 10/09/17 PROGRESS Observed: 10/09/2017 Status: COMPLETED Source: [place] 8:58 AM [facility] REPOSITORY HNO ID: [id number] Author: Nicky Knox LPN Service: (none) Author Type: (none) Type: Progress Notes Filed: 10/09/2017 11:03 AM Note Text: Bari Romero is a 61 year old male here today for visit in [facility] Referring Surgeon: Dr. Dunn Date of Surgery: 10/17/2017 Planned Surgery/Procedure: COLECTOMY ABDOMINAL W/O Allergies have been reviewed and verified. They include the following: Patient has no known allergies. Social History Substance Use Topics - Smoking status: Former Smoker - Smokeless tobacco: Never Used - Alcohol use No Medications reviewed and updated: Yes Nicky Knox LPN HISTORY PHYSICAL Observed: 10/09/2017 Status: COMPLETED Source: [place] 8:53 AM [facility] REPOSITORY HNO ID: [id number] Author: Yaquelin Blanco Service: (none) Author Type: Physician Type: HANDP Filed: 10/09/2017 4:22 PM Note Text: HISTORY AND PHYSICAL EXAMINATION (IMPACT) SERVICE DATE: 10/09/2017 SERVICE TIME: 8:54 AM PRIMARY CARE PHYSICIAN: Caesar Chavez DO CHIEF COMPLAINT/HISTORY OF PRESENT ILLNESS: Mr. Romero is a 61 year old male referred to [facility] for preoperative evaluation. My final recommendations will be communicated back to the requesting physician/surgeon by the way of the shared medical record. Referring Surgeon: Dr. Dunn Date of Surgery: 10/17/2017 Planned Surgery/Procedure: COLECTOMY ABDOMINAL W/O PROCTECTOMY W/ ILEOSTOMY/ILEOPROCTOSTOMY, TOTAL Indication for Planned Surgery / Procedure: Colon Cancer Refer to Assessment section for details of any comorbidities. PMH: 1) New diagnosis of colon Ca - biopsy proven CA of the hepatic flexure 2) BPH - on proscar 3) CAD - s/p 3 stents in 2003 -on Asprin and Plavix (stopped 2 weeks ago) - ran out of asprin, had LHC in 2009 4) HTN on hydralazine and iso 4) T2DM on insulin Novolog sliding scale with meals Tresiba 30 units AM 5) COPD on rescue inhalers only 2/week SOB after 1 flight of stairs Exacerbation outpatient 8 months ago GOLD classification - A/B 6) CKD - stage 4 , on bicarbonate 7) LADARIUS - on CPAP prn 8) Right thoracotomy with 2 lobectomies in 2009 benign mass 9)Gout - on allopurinol 10) Cilostazol for PVD 11) Anxiety - on valium prn Recent hospitalization 08/2017 hyperkalemia Tx medically Not on steroids Baseline SOB NYHA class 2, no chest pain Patient is Able to Perform the Following Physical Activity: Climb a flight of stairs or walk up a hill (5.50 METs) Patient's functional class is II based on self-reported physical activity. Significant Anesthesia Considerations: None. PAST MEDICAL/SURGICAL/FAMILY/SOCIAL HISTORY PAST MEDICAL HISTORY Diagnosis Date - BPH (benign prostatic hyperplasia) - CAD (coronary artery disease) s/p stenting ([facility]) to LAD x3 in 2003 - CKD (chronic kidney disease) stage 4, GFR 15-29 ml/min ([facility]) - Colon cancer ([facility]) - COPD (chronic obstructive pulmonary disease) ([facility]) - DM (diabetes mellitus) ([facility]) - Gout - Hematest positive stools - HTN (hypertension) - Increased PTH level - Influenza B - Iron deficiency anemia - Low vitamin D level - Lower GI bleed - Metabolic acidosis - Nocturnal hypoxia - Non-STEMI (non-ST elevated myocardial infarction) ([facility]) - NSAID long-term use - LADARIUS (obstructive sleep apnea) not using CPAP - PVD (peripheral vascular disease) ([facility]) - Renal failure - Respiratory failure ([facility]) - S/P lobectomy of lung RUL Lobectomy 2010 - Severe sepsis (HCC) PAST SURGICAL HISTORY Procedure Laterality Date - LOBECTOMY, SEGMENT RUL lobectomy 2010 - SKULL skull surgery FAMILY HISTORY Problem Relation Age of Onset - COPD Mother - Leukemia Father SOCIAL HISTORYSocial History Marital status: Spouse name: Years of education: Number of children: Social History Main Topics Smoking status: Former Smoker Packs/day: 0.00 Years: 0.00 Smokeless tobacco: Never Used Alcohol use: No Drug use: No MEDICATIONS/ALLERGIES Current Outpatient Prescriptions: sodium bicarbonate 650 mg tablet Take 1 tablet by mouth three times daily. Disp: Rfl: NOVOLOG FLEXPEN U-100 INSULIN 100 unit/mL inpn Inject 10-40 Units subcutaneously three times daily before meals. Sliding Scale Disp: Rfl: 0 neomycin 500 mg tablet Take 2 tablets by mouth at 9pm and take 2 tablets by mouth at 11pm the night before surgery. Disp: 4 tablet Rfl: 0 metroNIDAZOLE (FLAGYL) 500 mg tablet Take 1 tablet by mouth at 9pm and take 1 tablet by mouth at 11pm the night before surgery. Disp: 2 tablet Rfl: 0 albuterol (PROVENTIL) 2.5 mg /3 mL (0.083 %) nebulizer solution inhale 1 vial in nebulizer every 4 to 6 hours if needed for shortness of breath or wheezing Disp: Rfl: 0 allopurinol (ZYLOPRIM) 300 mg tablet Take 300 mg by mouth once daily. Disp: Rfl: 0 CONTOUR NEXT TEST STRIPS test strip as needed. Disp: Rfl: 0 cilostazol (PLETAL) 100 mg tablet Take 100 mg by mouth once daily. Disp: Rfl: 0 COLCRYS 0.6 mg tablet Take 0.6 mg by mouth as needed. Disp: Rfl: 0 diazePAM (VALIUM) 10 mg tablet Take 10 mg by mouth as needed. Disp: Rfl: 0 VITAMIN D 50,000 unit capsule Take 50,000 Units by mouth once each week. Disp: Rfl: 0 ferrous sulfate 325 mg (65 mg iron) tablet Take 1 tablet by mouth once daily. Disp: Rfl: 0 finasteride (PROSCAR) 5 mg tablet Take 5 mg by mouth once daily. Disp: Rfl: 0 hydrALAZINE (APRESOLINE) 25 mg tablet Take 25 mg by mouth three times daily. Disp: Rfl: 0 TRESIBA FLEXTOUCH U-200 200 unit/mL (3 mL) injection Inject 30 Units subcutaneously once daily. Per pt. 10/09/17 Disp: Rfl: 0 isosorbide mononitrate ER (IMDUR) 30 mg 24 hr tablet Take 30 mg by mouth once daily. Disp: Rfl: 0 oxyCODONE IR (ROXICODONE) 5 mg immediate release tablet Take 5 mg by mouth twice daily as needed. Disp: Rfl: 0 trimethoprim-polymyxin eye drops (POLYTRIM) ophthalmic solution place 1 drop into left eye four times a day Disp: Rfl: 0 aspirin, enteric coated (ECOTRIN LOW STRENGTH) 81 mg EC tablet Take 1 tablet by mouth once daily. Disp: Rfl: albuterol HFA (PROAIR HFA) 90 mcg/actuation inhaler 2 Puffs every 6 hours as needed for Wheezing/Shortness of Breath. Take as directed Disp: Rfl: nitroglycerin sublingual (NITROQUICK) 0.4 mg SL tablet Dissolve 1 tablet under the tongue as needed for Chest Pain. If no pain relief call 911. Disp: Rfl: simvastatin (ZOCOR) 80 mg tablet Take 1 tablet by mouth once daily. Disp: Rfl: metoprolol succinate ER (TOPROL XL) 50 mg 24 hr tablet Take 1 tablet by mouth once daily. Disp: Rfl: pantoprazole DR (PROTONIX) 40 mg tablet Take 1 tablet by mouth once daily. Disp: Rfl: tamsulosin ER (FLOMAX) 0.4 mg cap Take 1 capsule by mouth once daily. Disp: Rfl: No current facility-administered medications for this visit. ALLERGIES No Known Allergies * Full med rec done with pt utilizing recent discharge paperwork. REVIEW OF SYSTEMS General: No weight loss, malaise or fevers. Neuro: No history of TIA's, stroke, ON AIR DIRECTOR tumor, impaired sensorium, hemiplegia, paraplegia or quadriplegia. No neurological symptoms or problems. Respiratory: COPD, LADARIUS but not using CPAP, s/p RUL lobectomy in 2009. Chronic YODER with approx 1-2 city blocks which is unchanged Cardiovascular: HTN on meds, CAD s/p stenting in 2003, denies chest pain. Denies PND. Reports intermittent pedal edema and sleeps with 1-2 pillows at night. Denies afib. GI: Colon cancer. No significant EtOH : CKD4. Recent NICK and hyperK admission 09/2017 Endocrine: IDDM recently controlled, took steroid course x1wk 2mo ago Hematology: ASA 81, stopped plavix 2 weeks ago. Oncology: Colon cancer Psych: No history of psychiatric symptoms or problems. PHYSICAL EXAM VITALS: BP 135/75 Pulse 93 Temp (Src) 98.2 (Oral) Ht 6' 1 (1.85m) Wt 238 lb (108.0kg) SpO2 96% BMI 31.41 kg/(m2). General: Alert and oriented, obese, in NAD Skin: abrasions on L kennedy HEENT: EOM, pupils equal, round and reactive. Cardiovascular: RRR, no JVD, no appreciable murmurs Lungs: Normal breath sounds, no wheezes or crackles. Abdomen: Soft, non-tender, no rigidity. Extremities: 1+ pitting edema bilaterally, calves symmetric, no gross abnormalityes Neurological: Normal cognition and motor skills. Pulses: Carotid and radial pulses normal +2. ASSESSMENT Mr. Romero is a 61 year old male referred to me for preoperative evaluation. Patient has the following medical comorbidities which might affect the perioperative course: - New diagnosis of colon Ca - biopsy proven CA of the hepatic flexure - CAD: s/p stenting x3 in 2003, on ASA/statin/BB, plavix stopped 2wks ago, denies angina - HTN: controlled on meds - T2DM: on insulin, last A1C 6.6% in 09/2017, c/b CKD, on novolog TID by SSI and tresiba 30 units QAM which was previously 60 units BID - COPD: chronic YODER, uses albuterol PRN, Exacerbation outpatient 8 months ago in the setting of flu - CKD4: recent Cr 2.4 on 09/18/17, recent NICK with Cr > 4 earlier in September, on Na bicar - LADARIUS: not using CPAP - RUL lobectomy for benign lung mass in 2009 - Gout: on allopurinol - PVD: with LE claudication, improved on cilastozol Patient's RCRI (Revised Cardiac Risk Index: CAD/CHF/Stroke or TIA/SCr>2/DM on Insulin/High Risk Surgery) score is 3 and is at elevated risk for major adverse cardiac events in the perioperative period. Diagnostic tests reviewed for today's visit: Labs pending EKG 10/09/2017: sinus, 85, 1st degree AV block normal axis. PLAN/RECOMMENDATIONS CARDIAC: - RCRI of 3 with approx 4 METS functional status. Pt without angina. In the setting of chronic YODER and LE edema on exam, will get a TTE. Do not see clear need for stress testing as unlikely to change mgmt in the setting of time-sensitive surgery for colon cancer. Discussed elevated risk for CV complications and this rationale with pt and he expressed understanding of this. - continue ASA 81 uninterrupted given coronary stenting - cont metop uninterrupted - cont imdur/hyral as tolerated pending BPs PULMONARY: Patient is at increased risk for postoperative pulmonary complications. Suggest the following in the post-operative period: Continue bronchodilator medications, Aggressive bronchopulmonary hygiene, Minimize sedation/opioids as patient has LADARIUS and Early ambulation - Discussed increased risk for pulm complications with pt including PNA and postop resp failure and he expressed understanding of this. ENDOCRINE: DIABETES: - Initiate [facility] Guidelines for perioperative diabetes management. Check finger stick glucose on the morning of surgery. - Patient has been instructed on Preoperative DM medication management. RENAL: Increased risk of renal complications given advanced CKD and recent admission for NICK and hyperK. - Suggest following in the postoperative period due to patient's pre-existing renal disease: Avoid nephrotoxic medications Dose medications on estimated serum creatinine clearance Monitor fluid balance closely and avoid hypotension. Avoid dehydration / volume depletion Monitor serum creatinine - BMP today pending. Will consider nephro preop eval pending labs today - monitor labs carefully postop. - cont Na bicarb tabs VASCULAR/ANTICOAGULATION: VTE prophylaxis as deemed appropriate by the surgical service. Pt at elevated risk for postop VTE given malignancy. Pt is at elevated by acceptable risk to proceed with surgery pending labs and echo. Consider medicine consult to assist with medical comorbidities postop. Patient Instructions: As per patient instructions section. I have discussed the above recommendations with the patient in detail, in jovita and lay terms, and provided a written summary of instructions as needed. We have discussed that no surgery is without risk, but that the goal of preoperative assessment is to optimize that risk, and that was clearly understood by the patient. I have given ample opportunity for the patient to ask questions, and answered all questions to their stated satisfaction. SIGNATURE: Ronal Reyes MD PATIENT NAME: Bari Romero DATE: October 09, 2017 TIME: 8:54 AM [facility] STAFF PHYSICIAN NOTE OF PERSONAL INVOLVEMENT IN CARE I have reviewed the history and physical examination obtained and documented by the resident and I personally participated in the giang components. I have discussed the case and management of the patient's care. The following comments revise or confirm relevant giang components of their note. The above note has been reviewed and edited to reflect my history, exam and clinical decision-making. 61M with h/o CAD s/p stenting x3 in 2004, CKD4, IDDM (last A1C 6.6% 09/2017), COPD, HTN, LADARIUS, s/p RUL lobectomy in 2009, gout and recently diagnosed colon cancer presents for preop prior to colectomy on 10/17. RCRI = 3. Pt with close to 4 METS - can walk 1-2 city blocks and thinks he can climb 1 flight of stairs but does not do so regularly. Has chronic YODER that is unchanged. Activity limited more by LE claudication, which has improved since starting cilastozol. Admitted early September in [place] for hyperK (K > 6) and NICK with Cr > 4. Cr improved to 2.5 on 09/18/17. Seen by nephro (Dr. Daysi Magana) during admission to [place]. Assessment and plan updated per above. SIGNATURE: Yaquelin Blanco MD PAGER: [id number] DATE of SERVICE: 10/09/2017 TIME of SERVICE: 10:14 AM Addendum: TTE reviewed. No WMA. EF WNL. - The left ventricle is normal in size. There is mild concentric left ventricular hypertrophy. Left ventricular systolic function is normal. EF = 58 ? 5% (2D biplane) Grade I left ventricular diastolic dysfunction. - The right ventricle is normal in size. Right ventricular systolic function is normal. - The patient has not had a prior CC echocardiographic exam for comparison. Yaquelin Blanco MD 10/09/2017 3:10 PM Addendum: Labs reviewed and acceptable for surgery. Cr stable from recent baseline of 2.4. K WNL. Estimated Creatinine Clearance: 42.5 mL/min (A) (based on SCr of 2.32 mg/dL (H)). Given Cr stability and CrCl, no need to see nephro here at [facility] preop. Component Latest Ref Rng AND Units 10/09/2017 WBC 3.70 - 11.00 k/uL 9.05 RBC 4.20 - 6.00 m/uL 3.97 (L) Hemoglobin 13.0 - 17.0 g/dL 10.3 (L) Hematocrit 39.0 - 51.0 % 34.8 (L) MCV 80.0 - 100.0 fL 87.7 MCH 26.0 - 34.0 pG 25.9 (L) MCHC 30.5 - 36.0 g/dL 29.6 (L) RDW-CV 11.5 - 15.0 % 15.3 (H) Platelet Count 150 - 400 k/uL 336 MPV 9.0 - 12.7 fL 12.8 (H) Neut% % 67.6 Abs Neut (ANC) 1.45 - 7.50 k/uL 6.12 Lymph% % 17.8 Abs Lymph 1.00 - 4.00 k/uL 1.61 Louisa% % 7.2 Abs Louisa <0.87 k/uL 0.65 Eosin% % 7.0 Abs Eosin <0.46 k/uL 0.63 (H) Baso% % 0.4 Abs Baso <0.11 k/uL 0.04 Nucleated Reds 0 /100 WBC 0.1 (H) Absolute nRBC <0.01 k/uL 0.01 (H) Diff Type Auto Diff Protein, Total 6.3 - 8.0 g/dL 7.6 Albumin 3.9 - 4.9 g/dL 4.4 Calcium 8.5 - 10.2 mg/dL 9.7 Bilirubin, Total 0.2 - 1.3 mg/dL 0.3 Alkaline Phosphatase 36 - 108 U/L 99 AST 14 - 40 U/L 27 Glucose 74 - 99 mg/dL 165 (H) BUN 9 - 24 mg/dL 25 (H) Creatinine 0.73 - 1.22 mg/dL 2.32 (H) Sodium 136 - 144 mmol/L 143 Potassium 3.7 - 5.1 mmol/L 4.1 Chloride 97 - 105 mmol/L 101 CO2 22 - 30 mmol/L 29 Anion Gap 9 - 18 mmol/L 13 ALT 10 - 54 U/L 21 eGFR- 35 eGFR-All Other Races . 29 Iron 41 - 186 ug/dL 108 TIBC 232 - 386 ug/dL 370 Transferrin Saturation 15 - 57 % 29 Ferritin 30.3 - 565.7 ng/mL 45.6 Yaquelin Blanco MD 10/09/2017 4:20 PM ECG COMPLETE W Observed: 10/09/2017 Status: F Source: [place] INTERPRETATION 8:45 AM [facility] REPOSITORY NAME : BARI ROMERO PID : [id number] : 1955 Gender : Male Race : ORD : [id number] Procedure Date : Oct 09 2017 08:45:40 Edit Date : Oct 10 2017 08:04:41 Diagnosis:NORMAL SINUS RHYTHM NORMAL ECG Confirmed by INES DE SOUZA MD ([id number]) on 10/10/2017 8:04:19 AM Ventricular Rate : 85 BPM Atrial Rate : 85 BPM P-R Interval : 208 ms QRS Duration : 80 ms Q-T Interval : 348 ms QTC Calculation(Bezet) : 414 ms P Oliver : 56 degrees R Oliver : 63 degrees T Oliver : 71 degrees Test Reason : Location : 119 : A17 Overread By : INES DE SOUZA MD Edited By : INES DE SOUZA MD Referred By : LUSI DUNN Acquired by : GARRETT RIVERA PROGRESS Observed: 10/07/2017 Status: COMPLETED Source: [place] 2:37 PM [facility] REPOSITORY HNO ID: [id number] Author: Catalina Woods) Jamari Ann RN Service: (none) Author Type: Registered Nurse Type: Progress Notes Filed: 10/07/2017 2:37 PM Note Text: Patient referred to Blood Management for pre-surgical optimization. Current and complete lab data unavailable. Unable to complete evaluation. HOSP Observed: 10/07/2017 Status: COMPLETED Source: [place] 12:00 AM [facility] REPOSITORY Patient Update (ABELINO) BARI ROMERO ([id number]) 1955 M Date Time Provider Department 10/07/17 CATALINA ROSS (MARY) ABELINO During your visit today, we recorded the following information about you: Catalina Salazar RN, RN 10/07/2017 2:37 PM Signed Patient referred to Blood Management for pre-surgical optimization. Current and complete lab data unavailable. Unable to complete evaluation. Allergies As of Date: 10/07/2017 (No Known Allergies) Date Reviewed: 10/03/2017 Reviewed by: Luis Dunn - Fully Assessed Reason for Visit: Blood Management [Other] Prescriptions as of 10/07/2017 Sig: ALBUTEROL SULFATE 2.5 MG/3 ML* inhale 1 vial in nebulizer ev* ALLOPURINOL 300 MG TABLET CONTOUR NEXT TEST STRIPS CILOSTAZOL 100 MG TABLET COLCRYS 0.6 MG TABLET DIAZEPAM 5 MG TABLET take 1 tablet by mouth twice * DIAZEPAM 10 MG TABLET VITAMIN D2 50,000 UNIT CAPSULE FERROUS SULFATE 325 MG (65 MG* Take 1 tablet by mouth once d* FINASTERIDE 5 MG TABLET Take 5 mg by mouth once daily. HYDRALAZINE 25 MG TABLET Take 25 mg by mouth three quique* NOVOLOG FLEXPEN U-100 INSULIN* TRESIBA FLEXTOUCH U-200 INSUL* ISOSORBIDE MONONITRATE ER 30 * Take 30 mg by mouth once anabela* LISINOPRIL 20 MG TABLET Take 20 mg by mouth once anabela* OXYCODONE 5 MG TABLET Take 5 mg by mouth twice anabela* POLYMYXIN B SULFATE 10,000 UN* place 1 drop into left eye fo* SODIUM BICARBONATE 650 MG TAB* Take 650 mg by mouth twice da* Problem List As Of Date 10/07/2017 Noted Resolved Chest mass [R22.2] INVALID FOR* Obesity, Class I, BMI 30-34.9 [E66.9] INVALID FOR* Colon cancer (HCC) [C18.9] INVALID FOR* More... Encounter Status:Closed by CATALINA SALAZAR RN on 10/07/17 PROGRESS Observed: 10/03/2017 Status: COMPLETED Source: [place] 3:30 PM [facility] REPOSITORY HNO ID: [id number] Author: Kailey Bermudez [facility] Service: (none) Author Type: (none) Type: Progress Notes Filed: 10/03/2017 3:32 PM Note Text: STUDY TITLE: Colon and Rectal Cancer Database IRB NO.: [id number] PROJECT MANAGEMENT ANALYST: Dr. Wilberto Johnson Pager: [phone] COORDINATORS: Kailey Bernal/ Vanessa Salguero Pager: [phone] Kailey met with patient on 10/03/17 at his clinic appointment. Discussed above research protocol with patient including the risks, benefits, alternatives, and costs. The patient presented no further questions regarding the study. Patient has read and understands the study procedures and requirements. Patient has agreed to proceed with study participation and consent signed on 10/03/17. Copy of the signed consent provided to the patient. PROGRESS Observed: 10/03/2017 Status: COMPLETED Source: [place] 2:43 PM [facility] REPOSITORY HNO ID: [id number] Author: Shwetha [facility] Gus Service: (none) Author Type: Genetic Counselor Type: Progress Notes Filed: 10/10/2017 1:18 PM Note Text: [facility] Consultation Note Genetic Counselor: Shwetha Perez, MS, [facility], Licensed Genetic Counselor Patient: Bari Romero Patient Name and confirmed at initiation of visit. HIGH LEVEL SUMMARY: ? The patient's family history is potentially suggestive of a hereditary colorectal cancer syndrome or a hereditary polyposis syndrome. ? The patient provided informed consent for Common Hereditary Cancers Panel plus preliminary evidence colon cancer genes through [facility]. Results are expected in 3 weeks. IDENTIFICATION AND CHIEF COMPLAINT: Dr. Luis Dunn requested a consultation for genetic counseling and risk assessment for Bari Romero, a 61 year old male, for discussion of his personal history of colorectal cancer and polyposis. He presents to clinic today to discuss the possibility of a genetic predisposition to cancer, and to further clarify his risks, as well as his family members' risks for cancer. HISTORY OF PRESENT ILLNESS: Bari Romero was recently diagnosed with adenocarcinoma of the colon and a history of multiple polyps (a combination of hyperplastic and tubular adenomas). Bari pursued sigmoidoscopy in the office today, additional polyps were removed, pathology is pending. PAST MEDICAL HISTORY Diagnosis Date - Atrial fibrillation (HCC) - BPH (benign prostatic hyperplasia) - CAD (coronary artery disease) - Colon cancer (HCC) - COPD (chronic obstructive pulmonary disease) (HCC) - DM (diabetes mellitus) (HCC) - Gout - Hematest positive stools - HTN (hypertension) - Increased PTH level - Influenza B - Iron deficiency anemia - Low vitamin D level - Lower GI bleed - Metabolic acidosis - Nocturnal hypoxia - Non-STEMI (non-ST elevated myocardial infarction) (HCC) - NSAID long-term use - LADARIUS (obstructive sleep apnea) - Renal failure - Renal failure - Respiratory failure (HCC) - Severe sepsis (HCC) PAST SURGICAL HISTORY Procedure Laterality Date - CABG (1) VEIN GRAFT AND ARTERIAL GRAFT - REMOVAL OF LUNG CANCER SURVEILLANCE HISTORY: Colonoscopy: Yes / August 2017 EGD: Yes / August 2017 GI Polyps: Yes / mixture of hyperplastic and tubular adenomas removed in August 2017, additional colon polyps removed during today's sigmoidoscopy, pathology is pending Prostate Cancer surveillance: No Dermatology: No PERSONAL RISK ASSESSMENT FACTORS: Weight: Last 1 Encounter Wt Readings: Date: Wt: 10/03/2017 108 kg (238 lb) Height: Last 1 Encounter Ht Readings: Date: Ht: 10/03/2017 185.4 cm (6' 1) SOCIAL HISTORY: Social History Substance Use Topics - Smoking status: Former Smoker - Smokeless tobacco: Never Used - Alcohol use No FAMILY HISTORY: We obtained a detailed, 4-generation family history. Significant diagnoses are listed below: FAMILY HISTORY Problem Relation Age of Onset - COPD Mother - Leukemia Father The patient's ancestors are of Bulgarian and other unspecified descent. There is no Ashkenazi Nondenominational ancestry. There is no known consanguinity. A copy of the patient's pedigree will be available under the scanned documents tab following today's visit. GENETIC COUNSELING RISK ASSESSMENT, DISCUSSION, AND SUGGESTED FOLLOW UP: We reviewed the natural history and genetic etiology of sporadic, familial and hereditary cancer syndromes. The patient's personal history is potentially suggestive of: a hereditary colorectal cancer syndrome or a hereditary polyposis syndrome The patient meets NCCN testing criteria based on his personal history of polyposis and colorectal cancer. We discussed that identification of a hereditary cancer syndrome may help his care providers tailor his medical management. If a mutation is detected, the National Comprehensive Cancer Network and/or expert opinion recommendations would include increased cancer surveillance and prophylactic surgery options. If a mutation is detected, the patient will be referred back to the referring provider and to any additional appropriate care providers to discuss the relevant options. Inheritance of hereditary cancer syndromes was discussed with the patient. If a mutation is not found in the patient, this will decrease the likelihood of a hereditary colorectal cancer syndrome or a hereditary polyposis syndrome as the explanation for the patient's personal history of colorectal cancer and polyposis. However, it cannot completely rule out this possibility. Cancer surveillance options would be discussed for the patient according to the appropriate standard National Comprehensive Cancer Network and [place] Cancer [employer] guidelines, with consideration of their personal and family history risk factors. In this case, the patient will be referred back to their care providers for discussions of management. Based on this assessment of the patient's family and personal history, genetic testing is recommended. After considering the risks, benefits, and limitations, the patient chose to pursue and provided informed consent for the following testing: Common Hereditary Cancers Panel plus preliminary evidence colon cancer genes through [facility]. We discussed that an NGS panel can rarely result in an unexpected finding in a gene which may or may not be related to the presenting phenotype. Per the patient's request, we will contact him by telephone to discuss these results. A follow up genetic counseling visit will be scheduled if requested. The patient was seen for a total of 25 minutes, greater than 50% of which was spent [id number] counseling. This plan is being carried out per Dr. Payton Evans's recommendations. This note will also be sent to the referring provider via the electronic medical record. Shwetha Perez MS, [facility], Licensed Genetic Counselor [facility] CC: Dr. Luis Albrecht EDUCATIONAL INFORMATION SUPPLIED TO PATIENT AT ENCOUNTER: None INFORMATION TO BE MAILED TO PATIENT None - note will be available in [facility] [employer] CNOV Observed: 10/03/2017 Status: COMPLETED Source: [place] 2:30 PM [facility] REPOSITORY Office Visit (ABELINO) BARI ROMERO ([id number]) 1955 M Date Time Provider Department 10/03/17 2:30 PM GENETIC COUNSELOR ABELINO During your visit today, we recorded the following information about you: CHIQUIS Harris 10/03/2017 3:27 PM Addendum [facility] Consultation Note Genetic Counselor: Shwetha Perez MS, [facility], Licensed Genetic Counselor Patient: Bari Isabelle Heather Patient Name and confirmed at initiation of visit. HIGH LEVEL SUMMARY: ? The patient's family history is potentially suggestive of a hereditary colorectal cancer syndrome or a hereditary polyposis syndrome. ? The patient provided informed consent for Common Hereditary Cancers Panel plus preliminary evidence colon cancer genes through [facility]. Results are expected in 3 weeks. IDENTIFICATION AND CHIEF COMPLAINT: Dr. Luis Dunn requested a consultation for genetic counseling and risk assessment for Bari Romero, a 61 year old male, for discussion of his personal history of colorectal cancer and polyposis. He presents to clinic today to discuss the possibility of a genetic predisposition to cancer, and to further clarify his risks, as well as his family members' risks for cancer. HISTORY OF PRESENT ILLNESS: Bari Romero was recently diagnosed with adenocarcinoma of the colon and a history of multiple polyps (a combination of hyperplastic and tubular adenomas). Bari pursued sigmoidoscopy in the office today, additional polyps were removed, pathology is pending. PAST MEDICAL HISTORY Diagnosis Date - Atrial fibrillation (HCC) - BPH (benign prostatic hyperplasia) - CAD (coronary artery disease) - Colon cancer (HCC) - COPD (chronic obstructive pulmonary disease) (HCC) - DM (diabetes mellitus) (HCC) - Gout - Hematest positive stools - HTN (hypertension) - Increased PTH level - Influenza B - Iron deficiency anemia - Low vitamin D level - Lower GI bleed - Metabolic acidosis - Nocturnal hypoxia - Non-STEMI (non-ST elevated myocardial infarction) (HCC) - NSAID long-term use - LADARIUS (obstructive sleep apnea) - Renal failure - Renal failure - Respiratory failure (HCC) - Severe sepsis (HCC) PAST SURGICAL HISTORY Procedure Laterality Date - CABG (1) VEIN GRAFT AND ARTERIAL GRAFT - REMOVAL OF LUNG CANCER SURVEILLANCE HISTORY: Colonoscopy: Yes / August 2017 EGD: Yes / August 2017 GI Polyps: Yes / mixture of hyperplastic and tubular adenomas removed in August 2017, additional colon polyps removed during today's sigmoidoscopy, pathology is pending Prostate Cancer surveillance: No Dermatology: No PERSONAL RISK ASSESSMENT FACTORS: Weight: Last 1 Encounter Wt Readings: Date: Wt: 10/03/2017 108 kg (238 lb) Height: Last 1 Encounter Ht Readings: Date: Ht: 10/03/2017 185.4 cm (6' 1) SOCIAL HISTORY: Social History Substance Use Topics - Smoking status: Former Smoker - Smokeless tobacco: Never Used - Alcohol use No FAMILY HISTORY: We obtained a detailed, 4-generation family history. Significant diagnoses are listed below: FAMILY HISTORY Problem Relation Age of Onset - COPD Mother - Leukemia Father The patient's ancestors are of Bulgarian and other unspecified descent. There is no Ashkenazi Nondenominational ancestry. There is no known consanguinity. A copy of the patient's pedigree will be available under the scanned documents tab following today's visit. GENETIC COUNSELING RISK ASSESSMENT, DISCUSSION, AND SUGGESTED FOLLOW UP: We reviewed the natural history and genetic etiology of sporadic, familial and hereditary cancer syndromes. The patient's personal history is potentially suggestive of: a hereditary colorectal cancer syndrome or a hereditary polyposis syndrome The patient meets NCCN testing criteria based on his personal history of polyposis and colorectal cancer. We discussed that identification of a hereditary cancer syndrome may help his care providers tailor his medical management. If a mutation is detected, the National Comprehensive Cancer Network and/or expert opinion recommendations would include increased cancer surveillance and prophylactic surgery options. If a mutation is detected, the patient will be referred back to the referring provider and to any additional appropriate care providers to discuss the relevant options. Inheritance of hereditary cancer syndromes was discussed with the patient. If a mutation is not found in the patient, this will decrease the likelihood of a hereditary colorectal cancer syndrome or a hereditary polyposis syndrome as the explanation for the patient's personal history of colorectal cancer and polyposis. However, it cannot completely rule out this possibility. Cancer surveillance options would be discussed for the patient according to the appropriate standard National Comprehensive Cancer Network and [place] Cancer [employer] guidelines, with consideration of their personal and family history risk factors. In this case, the patient will be referred back to their care providers for discussions of management. Based on this assessment of the patient's family and personal history, genetic testing is recommended. After considering the risks, benefits, and limitations, the patient chose to pursue and provided informed consent for the following testing: Common Hereditary Cancers Panel plus preliminary evidence colon cancer genes through [facility]. We discussed that an NGS panel can rarely result in an unexpected finding in a gene which may or may not be related to the presenting phenotype. Per the patient's request, we will contact him by telephone to discuss these results. A follow up genetic counseling visit will be scheduled if requested. The patient was seen for a total of 25 minutes, greater than 50% of which was spent [id number] counseling. This plan is being carried out per Dr. Payton Evans's recommendations. This note will also be sent to the referring provider via the electronic medical record. Shwetha Perez, MS, [facility], Licensed Genetic Counselor [facility] CC: Dr. Luis Albrecht EDUCATIONAL INFORMATION SUPPLIED TO PATIENT AT ENCOUNTER: None INFORMATION TO BE MAILED TO PATIENT None - note [facility] available [facility] Referring Provider: LUIS DUNN [[id number]] Allergies As of Date: 10/03/2017 (No Known Allergies) Date Reviewed: 10/03/2017 Reviewed by: Luis Dunn - Fully Assessed Primary Visit Diagnosis:Malignant neoplasm of colon, unspecified part of colon (HCC) [C18.9] Other Visit Diagnoses:Colon adenomas [D12.6] Hyperplastic colonic polyp, unspecified part of colon [K63.5] Order(s):TUBES - DRAW EXTRA [SQXTUBE] Order #: [id number] FUTURE Prescriptions as of 10/03/2017 Sig: ALBUTEROL SULFATE 2.5 MG/3 ML* inhale 1 vial in nebulizer ev* ALLOPURINOL 300 MG TABLET Take 300 mg by mouth once omar* CONTOUR NEXT TEST STRIPS as needed. CILOSTAZOL 100 MG TABLET Take 100 mg by mouth once omar* COLCRYS 0.6 MG TABLET Take 0.6 mg by mouth as neede* DIAZEPAM 10 MG TABLET Take 10 mg by mouth as needed* VITAMIN D2 50,000 UNIT CAPSULE Take 50,000 Units by mouth on* FERROUS SULFATE 325 MG (65 MG* Take 1 tablet by mouth once d* FINASTERIDE 5 MG TABLET Take 5 mg by mouth once daily. HYDRALAZINE 25 MG TABLET Take 25 mg by mouth three quique* TRESIBA FLEXTOUCH U-200 INSUL* Inject 30 Units subcutaneousl* ISOSORBIDE MONONITRATE ER 30 * Take 30 mg by mouth once anabela* OXYCODONE 5 MG TABLET Take 5 mg by mouth twice anabela* POLYMYXIN B SULFATE 10,000 UN* place 1 drop into left eye fo* X DIAZEPAM 5 MG TABLET take 1 tablet by mouth twice * X NOVOLOG FLEXPEN U-100 INSULIN* Inject subcutaneously. Slidin* X LISINOPRIL 20 MG TABLET Take 20 mg by mouth once anabela* X SODIUM BICARBONATE 650 MG TAB* Take 650 mg by mouth twice da* Problem List As Of Date 10/03/2017 Noted Resolved Chest mass [R22.2] INVALID FOR* Obesity, Class I, BMI 30-34.9 [E66.9] INVALID FOR* Colon cancer (HCC) [C18.9] INVALID FOR* More... Follow-up and Disposition History Recorded Encounter Status:Closed by PREEZ SHWETHA on 10/03/17 SURGICAL PATHOLOGY Observed: 10/03/2017 Status: F Source: [place] 2:17 PM [facility] REPOSITORY Specimen originated from [facility] Specimen #: [id number] Submitting Physician: LUIS REESE FINAL DIAGNOSIS Rectum, polypectomy - Luminal contents admixed with rare detached non-neoplastic colonic crypts. - No evidence of adenoma. TP/kr 10/06/2017 Jesús Pearce M.D. (Electronic Signature) SPECIMEN SUBMITTED A: RECTAL POLYP CLINICAL DATA RECTAL POLYP R/O DYSPLASIA COLD FORCEPS GROSS DESCRIPTION A. Received in formalin is foreign material aggregating to 1.0 x 0.4 x 0.1 cm. Material may not survive processing. Totally submitted in one cassette. Gross examination performed at [facility], [address] [place] [address] 10/03/2017 7:39:01 PM Date of Report: 10/06/2017 Date of Procedure: 10/03/2017 Date of Receipt: 10/03/2017 Submitted by: LUIS REESE Location: [facility] Diagnostic interpretation performed at [place] [address]. CNOV Observed: 10/03/2017 Status: COMPLETED Source: [place] 2:10 PM [facility] REPOSITORY Office Visit (CORN) BARI ROMERO ([id number]) 1955 M Date Time Provider Department 10/03/17 2:10 PM LUIS DUNN During your visit today, we recorded the following information about you: Temperature Pulse Respiration Blood pressure 98 degrees 113/minute 18/minute 138/77 Weight Height 108 kg 1.854 m Luis Dunn MD 10/03/2017 4:37 PM Signed New Patient Consult REASON FOR VISIT Bari Romero is a 61 year old male who is scheduled for a consult at the request of Chaparro Ku for Colon Cancer. My final recommendations will be communicated back to the requesting physician by the way of the shared medical record, fax, or via US Mail History of Present Illness: Eval for surgery colon CA. Referred by Dr. Ku. No prior colo and underwent a screening colo with multiple polyps and a biopsy proven CA of the hepatic flexure. Multiple associated co-morbidities. Weight stable. Recent hospitalization for hyperkalemia, CKD. BM have been normal without a change (may occasionally have blood but self limited). On ROS: No FHx CRC or ovarian/endometrial CA PMHx: coronary artery disease, hypertension, type 2 diabetes, myocardial infarction, COPD, acute on chronic renal failure. This is stage IV, the reasons not on dialysis. multiple coronary stents placed and a right thoracotomy with what sounds like 2 lobectomies for benign tumor in 2009. The patient's quit smoking in April of this year TESTIN09/18/2017 CT a/p (don?t have discs) Inflammation overlying diverticulum of distal ascending colon and sigmoid colon. This suggests multifocal diverticulitis 17mm linear foreign body in ascending colon. 11mm linear foreign body in distal transverse colon CEA 2.5 09/18/2017 Colonoscopy /EGD by Dr. Ku There were many polyps seen. Again, throughout the ascending colon and the transverse colon, usually 1-2 polyps every 1-2 folds. Some were sessile, somewhat pedunculated. Hoping that there will be fewer polyps in the descending colon. An additional clip was placed what was felt to be a transition of slightly fewer polyps. This, on follow-up KUB was demonstrated to be the splenic flexure. Polyps were taken. Proximal and distal to that clip proximal polyps including tubular adenomas. Polyps in the descending colon to sigmoid area to remove returned as hyperplastic polyps. Pathology: A. Antral biopsy: Mild gastritis. B. Hepatic flexure, biopsy: Invasive adenocarcinoma. Hyperplastic polyp. See comment. C. Polyp proximal to clip, biopsy: Fragments of tubular adenoma. D. Polyp at 30 cm, biopsy: Hyperplastic polyp. COMMENT A. The results of immunohistochemistry for Helicobacter pylori will be reported separately ([id number]). B. The results of Immunohistochemistry ([id number]) for mismatch repair of protein will be reported separately. Case has been reviewed in consultation with Dr. Fairchild who concurs with the above diagnosis. IDC:AM FUNCTIONAL STATUS: Walk a block or two on level ground (2.75 METs) PAST MEDICAL HISTORY Diagnosis Date - Atrial fibrillation (HCC) - BPH (benign prostatic hyperplasia) - CAD (coronary artery disease) - COPD (chronic obstructive pulmonary disease) (HCC) - DM (diabetes mellitus) (HCC) - Gout - Hematest positive stools - HTN (hypertension) - Increased PTH level - Influenza B - Iron deficiency anemia - Low vitamin D level - Lower GI bleed - Metabolic acidosis - Nocturnal hypoxia - Non-STEMI (non-ST elevated myocardial infarction) (HCC) - NSAID long-term use - LADARIUS (obstructive sleep apnea) - Renal failure - Renal failure - Respiratory failure (HCC) - Severe sepsis (HCC) PAST SURGICAL HISTORY Procedure Laterality Date - CABG (1) VEIN GRAFT AND ARTERIAL GRAFT - REMOVAL OF LUNG FAMILY HISTORY Problem Relation Age of Onset - COPD Mother - Leukemia Father Social History Substance Use Topics - Smoking status: Former Smoker - Smokeless tobacco: Not on file - Alcohol use No The patient has the following: Problem List Noted Noted By Resolved Resolved By Chest mass 09/26/2017 Amy Vuong LPN No MEDICATIONS Current Outpatient Prescriptions: albuterol (PROVENTIL) 2.5 mg /3 mL (0.083 %) nebulizer solution inhale 1 vial in nebulizer every 4 to 6 hours if needed for shortness of breath or wheezing Disp: Rfl: 0 allopurinol (ZYLOPRIM) 300 mg tablet Disp: Rfl: 0 CONTOUR NEXT TEST STRIPS test strip Disp: Rfl: 0 cilostazol (PLETAL) 100 mg tablet Disp: Rfl: 0 COLCRYS 0.6 mg tablet Disp: Rfl: 0 diazePAM (VALIUM) 5 mg tablet take 1 tablet by mouth twice a day for INVOLUNTARY MUSCLE SPASM Disp: Rfl: 0 diazePAM (VALIUM) 10 mg tablet Disp: Rfl: 0 VITAMIN D 50,000 unit capsule Disp: Rfl: 0 ferrous sulfate 325 mg (65 mg iron) tablet Take 1 tablet by mouth once daily. Disp: Rfl: 0 finasteride (PROSCAR) 5 mg tablet Take 5 mg by mouth once daily. Disp: Rfl: 0 hydrALAZINE (APRESOLINE) 25 mg tablet Take 25 mg by mouth three times daily. Disp: Rfl: 0 NOVOLOG FLEXPEN U-100 INSULIN 100 unit/mL inpn Disp: Rfl: 0 TRESIBA FLEXTOUCH U-200 200 unit/mL (3 mL) injection Disp: Rfl: 0 isosorbide mononitrate ER (IMDUR) 30 mg 24 hr tablet Take 30 mg by mouth once daily. Disp: Rfl: 0 lisinopril (ZESTRIL, PRINIVIL) 20 mg tablet Take 20 mg by mouth once daily. Disp: Rfl: 0 oxyCODONE IR (ROXICODONE) 5 mg immediate release tablet Take 5 mg by mouth twice daily as needed. Disp: Rfl: 0 trimethoprim-polymyxin eye drops (POLYTRIM) ophthalmic solution place 1 drop into left eye four times a day Disp: Rfl: 0 sodium bicarbonate 650 mg tablet Take 650 mg by mouth twice daily. Disp: Rfl: 0 No current facility-administered medications for this visit. CURRENT ALLERGIES ALLERGIES No Known Allergies REVIEW OF SYSTEMS PAIN ASSESSMENT: General: No weight loss, malaise or fevers. Neuro: Neg Respiratory: No history of current cough or dyspnea, or pneumonia in the past 6 weeks. No history of respiratory/pulmonary symptoms or problems Cardiovascular: Positive for: Hypertension, 3 stents placed 2009 GI: Positive for Colon cancer, History of polyps : Stage 4 kidney disease MIXER WET POUR: N/A : N/A Endocrine: Diabetes Mellitus on insulin Hematology: Easy bruising / bleeding Oncology: No history of CA metastasis, chemo within 30 days, or radiotherapy within 90 days. Has not lost 10% of body wt in 6 months. No history of oncological symptoms or problems. Psych: No history of psychiatric symptoms or problems. Musculoskeletal: Back pain Skin: Negative for lesions, rash and itching. Anemia: No PHYSICAL EXAMINATION There were no vitals taken for this visit. General Appearance: Well appearing, alert, in no acute distress, well-hydrated, well nourished. Skin: Skin color, texture, turgor normal, no suspicious rashes or lesions Head: Normocephalic, no masses, lesions, tenderness or abnormalities Oropharynx: Lips, mucosa, and tongue normal, teeth and gums normal, oropharynx normal Neck: Supple, no adenopathy; thyroid symmetric, normal size, no bruits Lungs: Lungs clear to auscultation. No wheezing, rhonchi, rales Heart: RRR without murmur, gallop, or rubs. No ectopy Extremities: No deformities, edema, skin discoloration, clubbing or cyanosis. Good capillary refill. Neuro: Gait normal. Reflexes normal and symmetric. Sensation grossly intact. 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 After digital exam with a lubricated finger, the scope was easily inserted to 40 cm. Findings: The preparation was poor at 40cm. There was 3 small polyps in the proximal (2) and mid (1) rectum on the second rectal valve The remainder of the sigmoid, rectum and anal canal were entirely normal. Complete excision was performed with hot and cold snare of the 3 polyps seen. None in the rectum. Diagnostic tests reviewed for today's visit: Colonoscopy Report Pathology Report CT imaging Assessment ASSESSMENT Colon cancer with polyposis Multiple medical comobordities RECOMMENDATION - Genetics consult due to the multple polyps (seen here today) - CT chest to complete staging but the CT demonstrated no sign of metastatic disease - preoperative clearances due to the multiple health issues - OR for colonoscopy, laparoscopic total abdominal colectomy with JADE and DLI Procedure:Lap STC with ileorectal vs ileosigmoid, colonoscopy vs flex sigmoidoscopy and diverting ostomy. The risks, benefits and anticipated outcomes of the procedure, the risks and benefits of the alternatives to the procedure, and the roles and tasks of the personnel to be involved, were discussed with the patient, and the patient consents to the procedure and agrees to proceed. Luis Dunn MD DATE: 10/02/17 TIME: 2:57 PM Referring Provider: CHAPARRO KU [[id number]] Allergies As of Date: 10/03/2017 (No Known Allergies) Date Reviewed: 10/03/2017 Reviewed by: Luis Dunn - Fully Assessed Reason for Visit: Consult [173] Cmt: Colon Cancer Visit Diagnoses:Obesity, Class I, BMI 30-34.9 [E66.9] History of colonic polyps [Z86.010] Malignant neoplasm of hepatic flexure (HCC) [C18.3] Order(s):SURGICAL PATHOLOGY [[id number]] Order #: [id number]. #:[id number] Prescriptions as of 10/03/2017 Sig: ALBUTEROL SULFATE 2.5 MG/3 ML* inhale 1 vial in nebulizer ev* ALLOPURINOL 300 MG TABLET CONTOUR NEXT TEST STRIPS CILOSTAZOL 100 MG TABLET COLCRYS 0.6 MG TABLET DIAZEPAM 5 MG TABLET take 1 tablet by mouth twice * DIAZEPAM 10 MG TABLET VITAMIN D2 50,000 UNIT CAPSULE FERROUS SULFATE 325 MG (65 MG* Take 1 tablet by mouth once d* FINASTERIDE 5 MG TABLET Take 5 mg by mouth once daily. HYDRALAZINE 25 MG TABLET Take 25 mg by mouth three quique* NOVOLOG FLEXPEN U-100 INSULIN* TRESIBA FLEXTOUCH U-200 INSUL* ISOSORBIDE MONONITRATE ER 30 * Take 30 mg by mouth once anabela* LISINOPRIL 20 MG TABLET Take 20 mg by mouth once anabela* OXYCODONE 5 MG TABLET Take 5 mg by mouth twice anabela* POLYMYXIN B SULFATE 10,000 UN* place 1 drop into left eye fo* SODIUM BICARBONATE 650 MG TAB* Take 650 mg by mouth twice da* Medication notes this encounter COLCRYS 0.6 MG TABLET >> Tamiko Lauren, RN, RN 10/03/2017 1:26 PM >> TAMIKO LAUREN FriOct 03, 2017 1:26 PM as needed Problem List As Of Date 10/03/2017 Noted Resolved Chest mass [R22.2] INVALID FOR* Obesity, Class I, BMI 30-34.9 [E66.9] INVALID FOR* Level of Service: NEW PATIENT VISIT LEVEL 5 [[id number]] Follow-up and Disposition History Recorded Encounter Status:Closed by LUIS DUNN MD on 10/03/17 HOSP Observed: 10/03/2017 Status: COMPLETED Source: [place] 12:00 AM [facility] REPOSITORY Patient:Bari Romero MRN: <[id number]> Height:6' .992(1.854 m) Weight:238 lb 1.6 oz (108 kg) Outpatient Medications as of 10/17/17: sodium bicarbonate 650 mg tablet aspirin, enteric coated (ECOTRIN LOW STRENGTH) 81 mg EC tablet albuterol HFA (PROAIR HFA) 90 mcg/actuation inhaler NOVOLOG FLEXPEN U-100 INSULIN 100 unit/mL inpn nitroglycerin sublingual (NITROQUICK) 0.4 mg SL tablet simvastatin (ZOCOR) 80 mg tablet metoprolol succinate ER (TOPROL XL) 50 mg [address] (PROTONIX) 40 mg tablet tamsulosin ER (FLOMAX) 0.4 mg cap neomycin 500 mg tablet metroNIDAZOLE (FLAGYL) 500 mg tablet albuterol (PROVENTIL) 2.5 mg /3 mL (0.083 %) nebulizer solution allopurinol (ZYLOPRIM) 300 mg tablet CONTOUR NEXT TEST STRIPS test strip cilostazol (PLETAL) 100 mg tablet COLCRYS 0.6 mg tablet diazePAM (VALIUM) 10 mg tablet VITAMIN D 50,000 unit capsule ferrous sulfate 325 mg (65 mg iron) tablet finasteride (PROSCAR) 5 mg tablet hydrALAZINE (APRESOLINE) 25 mg tablet TRESIBA FLEXTOUCH U-200 200 unit/mL (3 mL) injection isosorbide mononitrate ER (IMDUR) 30 mg 24 hr tablet oxyCODONE IR (ROXICODONE) 5 mg immediate release tablet trimethoprim-polymyxin eye drops (POLYTRIM) ophthalmic solution Admission/Clinic Administered Medications as of 10/17/17: lidocaine 10 mg/mL (1 %) 1-2 mg injection (XYLOCAINE) lactated ringers infusion cefTRIAXone 2 g in D5W 100 mL MB+ (ROCEPHIN) metroNIDAZOLE 500 mg PREMIX piggyback (FLAGYL) Problem List: Chest mass [R22.2] Obesity, Class I, BMI 30-34.9 [E66.9] Colon cancer (HCC) [C18.9] Coronary artery disease involving [place] coronary artery of [place] heart without angina pectoris [I25.10] CKD (chronic kidney disease) stage 4, GFR 15-29 ml/min (HCC) [N18.4] Type 2 diabetes mellitus with stage 4 chronic kidney disease, with long-term current use of insulin (HCC) [E11.22, N18.4, Z79.4] Essential hypertension [I10] LADARIUS (obstructive sleep apnea) [G47.33] Chronic gout without tophus [M1A.9XX0] PVD (peripheral vascular disease) (HCC) [I73.9] Chronic obstructive pulmonary disease (HCC) [J44.9] Allergies: No Known Allergies Date Verified:10/17/17 Lab Values Lab Value Units Date High Low POTA* 4.1 mmol/L 10/09/2017 5.1 3.7 SUDHEER* 34.8 % 10/09/2017 51.0 39.0 Progress Notes (INTM MAIN IMPACT): Yaquelin Blanco MD 10/09/2017 4:22 PM Addendum HISTORY AND PHYSICAL EXAMINATION (IMPACT) SERVICE DATE: 10/09/2017 SERVICE TIME: 8:54 AM PRIMARY CARE PHYSICIAN: Caesar Chavez DO CHIEF COMPLAINT/HISTORY OF PRESENT ILLNESS: Mr. Romero is a 61 year old male referred to me for preoperative evaluation. My final recommendations will be communicated back to the requesting physician/surgeon by the way of the shared medical record. Referring Surgeon: Dr. Dunn Date of Surgery: 10/17/2017 Planned Surgery/Procedure: COLECTOMY ABDOMINAL W/O PROCTECTOMY W/ ILEOSTOMY/ILEOPROCTOSTOMY, TOTAL Indication for Planned Surgery / Procedure: Colon Cancer Refer to Assessment section for details of any comorbidities. PMH: 1) New diagnosis of colon Ca - biopsy proven CA of the hepatic flexure 2) BPH - on proscar 3) CAD - s/p 3 stents in 2003 -on Asprin and Plavix (stopped 2 weeks ago) - ran out of asprin, had LHC in 2009 4) HTN on hydralazine and iso 4) T2DM on insulin Novolog sliding scale with meals Tresiba 30 units AM 5) COPD on rescue inhalers only 2/week SOB after 1 flight of stairs Exacerbation outpatient 8 months ago GOLD classification - A/B 6) CKD - stage 4 , on bicarbonate 7) LADARIUS - on CPAP prn 8) Right thoracotomy with 2 lobectomies in 2009 benign mass 9)Gout - on allopurinol 10) Cilostazol for PVD 11) Anxiety - on valium prn Recent hospitalization 08/2017 hyperkalemia Tx medically Not on steroids Baseline SOB NYHA class 2, no chest pain Patient is Able to Perform the Following Physical Activity: Climb a flight of stairs or walk up a hill (5.50 METs) Patient's functional class is II based on self-reported physical activity. Significant Anesthesia Considerations: None. PAST MEDICAL/SURGICAL/FAMILY/SOCIAL HISTORY PAST MEDICAL HISTORY Diagnosis Date - BPH (benign prostatic hyperplasia) - CAD (coronary artery disease) s/p stenting (NIKHIL) to LAD x3 in 2003 - CKD (chronic kidney disease) stage 4, GFR 15-29 ml/min ([facility]) - Colon cancer ([facility]) - COPD (chronic obstructive pulmonary disease) ([facility]) - DM (diabetes mellitus) ([facility]) - Gout - Hematest positive stools - HTN (hypertension) - Increased PTH level - Influenza B - Iron deficiency anemia - Low vitamin D level - Lower GI bleed - Metabolic acidosis - Nocturnal hypoxia - Non-STEMI (non-ST elevated myocardial infarction) ([facility]) - NSAID long-term use - LADARIUS (obstructive sleep apnea) not using CPAP - PVD (peripheral vascular disease) ([facility]) - Renal failure - Respiratory failure ([facility]) - S/P lobectomy of lung RUL Lobectomy 2009 - Severe sepsis ([facility]) PAST SURGICAL HISTORY Procedure Laterality Date - LOBECTOMY, SEGMENT RUL lobectomy 2009 - SKULL skull surgery FAMILY HISTORY Problem Relation Age of Onset - COPD Mother - Leukemia Father SOCIAL HISTORYSocial History Marital status: Spouse name: Years of education: Number of children: Social History Main Topics Smoking status: Former Smoker Packs/day: 0.00 Years: 0.00 Smokeless tobacco: Never Used Alcohol use: No Drug use: No MEDICATIONS/ALLERGIES Current Outpatient Prescriptions: sodium bicarbonate 650 mg tablet Take 1 tablet by mouth three times daily. Disp: Rfl: NOVOLOG FLEXPEN U-100 INSULIN 100 unit/mL inpn Inject 10-40 Units subcutaneously three times daily before meals. Sliding Scale Disp: Rfl: 0 neomycin 500 mg tablet Take 2 tablets by mouth at 9pm and take 2 tablets by mouth at 11pm the night before surgery. Disp: 4 tablet Rfl: 0 metroNIDAZOLE (FLAGYL) 500 mg tablet Take 1 tablet by mouth at 9pm and take 1 tablet by mouth at 11pm the night before surgery. Disp: 2 tablet Rfl: 0 albuterol (PROVENTIL) 2.5 mg /3 mL (0.083 %) nebulizer solution inhale 1 vial in nebulizer every 4 to 6 hours if needed for shortness of breath or wheezing Disp: Rfl: 0 allopurinol (ZYLOPRIM) 300 mg tablet Take 300 mg by mouth once daily. Disp: Rfl: 0 CONTOUR NEXT TEST STRIPS test strip as needed. Disp: Rfl: 0 cilostazol (PLETAL) 100 mg tablet Take 100 mg by mouth once daily. Disp: Rfl: 0 COLCRYS 0.6 mg tablet Take 0.6 mg by mouth as needed. Disp: Rfl: 0 diazePAM (VALIUM) 10 mg tablet Take 10 mg by mouth as needed. Disp: Rfl: 0 VITAMIN D 50,000 unit capsule Take 50,000 Units by mouth once each week. Disp: Rfl: 0 ferrous sulfate 325 mg (65 mg iron) tablet Take 1 tablet by mouth once daily. Disp: Rfl: 0 finasteride (PROSCAR) 5 mg tablet Take 5 mg by mouth once daily. Disp: Rfl: 0 hydrALAZINE (APRESOLINE) 25 mg tablet Take 25 mg by mouth three times daily. Disp: Rfl: 0 TRESIBA FLEXTOUCH U-200 200 unit/mL (3 mL) injection Inject 30 Units subcutaneously once daily. Per pt. 10/09/17 Disp: Rfl: 0 isosorbide mononitrate ER (IMDUR) 30 mg 24 hr tablet Take 30 mg by mouth once daily. Disp: Rfl: 0 oxyCODONE IR (ROXICODONE) 5 mg immediate release tablet Take 5 mg by mouth twice daily as needed. Disp: Rfl: 0 trimethoprim-polymyxin eye drops (POLYTRIM) ophthalmic solution place 1 drop into left eye four times a day Disp: Rfl: 0 aspirin, enteric coated (ECOTRIN LOW STRENGTH) 81 mg EC tablet Take 1 tablet by mouth once daily. Disp: Rfl: albuterol HFA (PROAIR HFA) 90 mcg/actuation inhaler 2 Puffs every 6 hours as needed for Wheezing/Shortness of Breath. Take as directed Disp: Rfl: nitroglycerin sublingual (NITROQUICK) 0.4 mg SL tablet Dissolve 1 tablet under the tongue as needed for Chest Pain. If no pain relief call 911. Disp: Rfl: simvastatin (ZOCOR) 80 mg tablet Take 1 tablet by mouth once daily. Disp: Rfl: metoprolol succinate ER (TOPROL XL) 50 mg 24 hr tablet Take 1 tablet by mouth once daily. Disp: Rfl: pantoprazole DR (PROTONIX) 40 mg tablet Take 1 tablet by mouth once daily. Disp: Rfl: tamsulosin ER (FLOMAX) 0.4 mg cap Take 1 capsule by mouth once daily. Disp: Rfl: No current facility-administered medications for this visit. ALLERGIES No Known Allergies * Full med rec done with pt utilizing recent discharge paperwork. REVIEW OF SYSTEMS General: No weight loss, malaise or fevers. Neuro: No history of TIA's, stroke, ON AIR DIRECTOR tumor, impaired sensorium, hemiplegia, paraplegia or quadriplegia. No neurological symptoms or problems. Respiratory: COPD, LADARIUS but not using CPAP, s/p RUL lobectomy in 2009. Chronic YODER with approx 1-2 city blocks which is unchanged Cardiovascular: HTN on meds, CAD s/p stenting in 2003, denies chest pain. Denies PND. Reports intermittent pedal edema and sleeps with 1-2 pillows at night. Denies afib. GI: Colon cancer. No significant EtOH : CKD4. Recent NICK and hyperK admission 09/2017 Endocrine: IDDM recently controlled, took steroid course x1wk 2mo ago Hematology: ASA 81, stopped plavix 2 weeks ago. Oncology: Colon cancer Psych: No history of psychiatric symptoms or problems. PHYSICAL EXAM VITALS: BP 135/75 Pulse 93 Temp (Src) 98.2 (Oral) Ht 6' 1 (1.85m) Wt 238 lb (108.0kg) SpO2 96% BMI 31.41 kg/(m2). General: Alert and oriented, obese, in NAD Skin: abrasions on L kennedy HEENT: EOM, pupils equal, round and reactive. Cardiovascular: RRR, no JVD, no appreciable murmurs Lungs: Normal breath sounds, no wheezes or crackles. Abdomen: Soft, non-tender, no rigidity. Extremities: 1+ pitting edema bilaterally, calves symmetric, no gross abnormalityes Neurological: Normal cognition and motor skills. Pulses: Carotid and radial pulses normal +2. ASSESSMENT Mr. Romero is a 61 year old male referred to me for preoperative evaluation. Patient has the following medical comorbidities which might affect the perioperative course: - New diagnosis of colon Ca - biopsy proven CA of the hepatic flexure - CAD: s/p stenting x3 in 2003, on ASA/statin/BB, plavix stopped 2wks ago, denies angina - HTN: controlled on meds - T2DM: on insulin, last A1C 6.6% in 09/2017, c/b CKD, on novolog TID by SSI and tresiba 30 units QAM which was previously 60 units BID - COPD: chronic YODER, uses albuterol PRN, Exacerbation outpatient 8 months ago in the setting of flu - CKD4: recent Cr 2.4 on 09/18/17, recent NICK with Cr > 4 earlier in September, on Na bicar - LADARIUS: not using CPAP - RUL lobectomy for benign lung mass in 2009 - Gout: on allopurinol - PVD: with LE claudication, improved on cilastozol Patient's RCRI (Revised Cardiac Risk Index: CAD/CHF/Stroke or TIA/SCr>2/DM on Insulin/High Risk Surgery) score is 3 and is at elevated risk for major adverse cardiac events in the perioperative period. Diagnostic tests reviewed for today's visit: Labs pending EKG 10/09/2017: sinus, 85, 1st degree AV block normal axis. PLAN/RECOMMENDATIONS CARDIAC: - RCRI of 3 with approx 4 METS functional status. Pt without angina. In the setting of chronic YODER and LE edema on exam, will get a TTE. Do not see clear need for stress testing as unlikely to change mgmt in the setting of time-sensitive surgery for colon cancer. Discussed elevated risk for CV complications and this rationale with pt and he expressed understanding of this. - continue ASA 81 uninterrupted given coronary stenting - cont metop uninterrupted - cont imdur/hyral as tolerated pending BPs PULMONARY: Patient is at increased risk for postoperative pulmonary complications. Suggest the following in the post-operative period: Continue bronchodilator medications, Aggressive bronchopulmonary hygiene, Minimize sedation/opioids as patient has LADARIUS and Early ambulation - Discussed increased risk for pulm complications with pt including PNA and postop resp failure and he expressed understanding of this. ENDOCRINE: DIABETES: - Initiate [facility] Guidelines for perioperative diabetes management. Check finger stick glucose on the morning of surgery. - Patient has been instructed on Preoperative DM medication management. RENAL: Increased risk of renal complications given advanced CKD and recent admission for NICK and hyperK. - Suggest following in the postoperative period due to patient's pre-existing renal disease: Avoid nephrotoxic medications Dose medications on estimated serum creatinine clearance Monitor fluid balance closely and avoid hypotension. Avoid dehydration / volume depletion Monitor serum creatinine - BMP today pending. Will consider nephro preop eval pending labs today - monitor labs carefully postop. - cont Na bicarb tabs VASCULAR/ANTICOAGULATION: VTE prophylaxis as deemed appropriate by the surgical service. Pt at elevated risk for postop VTE given malignancy. Pt is at elevated by acceptable risk to proceed with surgery pending labs and echo. Consider medicine consult to assist with medical comorbidities postop. Patient Instructions: As per patient instructions section. I have discussed the above recommendations with the patient in detail, in jovita and lay terms, and provided a written summary of instructions as needed. We have discussed that no surgery is without risk, but that the goal of preoperative assessment is to optimize that risk, and that was clearly understood by the patient. I have given ample opportunity for the patient to ask questions, and answered all questions to their stated satisfaction. SIGNATURE: Ronal Reyes MD PATIENT NAME: Bari Romero DATE: October 09, 2017 TIME: 8:54 AM [facility] STAFF PHYSICIAN NOTE OF PERSONAL INVOLVEMENT IN CARE I have reviewed the history and physical examination obtained and documented by the resident and I personally participated in the giang components. I have discussed the case and management of the patient's care. The following comments revise or confirm relevant giang components of their note. The above note has been reviewed and edited to reflect my history, exam and clinical decision-making. 61M with h/o CAD s/p stenting x3 in 2004, CKD4, IDDM (last A1C 6.6% 09/2017), COPD, HTN, LADARIUS, s/p RUL lobectomy in 2009, gout and recently diagnosed colon cancer presents for preop prior to colectomy on 10/17. RCRI = 3. Pt with close to 4 METS - can walk 1-2 city blocks and thinks he can climb 1 flight of stairs but does not do so regularly. Has chronic YODER that is unchanged. Activity limited more by LE claudication, which has improved since starting cilastozol. Admitted early September in [place] for hyperK (K > 6) and NICK with Cr > 4. Cr improved to 2.5 on 09/18/17. Seen by nephro (Dr. Daysi Magana) during admission to [place]. Assessment and plan updated per above. SIGNATURE: Yaquelin Blanco MD PAGER: [phone] DATE of SERVICE: 10/09/2017 TIME of SERVICE: 10:14 AM Addendum: TTE reviewed. No WMA. EF WNL. - The left ventricle is normal in size. There is mild concentric left ventricular hypertrophy. Left ventricular systolic function is normal. EF = 58 ? 5% (2D biplane) Grade I left ventricular diastolic dysfunction. - The right ventricle is normal in size. Right ventricular systolic function is normal. - The patient has not had a prior echocardiographic exam for comparison. Yaquelin Blanco MD 10/09/2017 3:10 PM Addendum: Labs reviewed and acceptable for surgery. Cr stable from recent baseline of 2.4. K WNL. Estimated Creatinine Clearance: 42.5 mL/min (A) (based on SCr of 2.32 mg/dL (H)). Given Cr stability and CrCl, no need to see nephro here at [facility] preop. Component Latest Ref Rng AND Units 10/09/2017 WBC 3.70 - 11.00 k/uL 9.05 RBC 4.20 - 6.00 m/uL 3.97 (L) Hemoglobin 13.0 - 17.0 g/dL 10.3 (L) Hematocrit 39.0 - 51.0 % 34.8 (L) MCV 80.0 - 100.0 fL 87.7 MCH 26.0 - 34.0 pG 25.9 (L) MCHC 30.5 - 36.0 g/dL 29.6 (L) RDW-CV 11.5 - 15.0 % 15.3 (H) Platelet Count 150 - 400 k/uL 336 MPV 9.0 - 12.7 fL 12.8 (H) Neut% % 67.6 Abs Neut (ANC) 1.45 - 7.50 k/uL 6.12 Lymph% % 17.8 Abs Lymph 1.00 - 4.00 k/uL 1.61 Louisa% % 7.2 Abs Louisa <0.87 k/uL 0.65 Eosin% % 7.0 Abs Eosin <0.46 k/uL 0.63 (H) Baso% % 0.4 Abs Baso <0.11 k/uL 0.04 Nucleated Reds 0 /100 WBC 0.1 (H) Absolute nRBC <0.01 k/uL 0.01 (H) Diff Type Auto Diff Protein, Total 6.3 - 8.0 g/dL 7.6 Albumin 3.9 - 4.9 g/dL 4.4 Calcium 8.5 - 10.2 mg/dL 9.7 Bilirubin, Total 0.2 - 1.3 mg/dL 0.3 Alkaline Phosphatase 36 - 108 U/L 99 AST 14 - 40 U/L 27 Glucose 74 - 99 mg/dL 165 (H) BUN 9 - 24 mg/dL 25 (H) Creatinine 0.73 - 1.22 mg/dL 2.32 (H) Sodium 136 - 144 mmol/L 143 Potassium 3.7 - 5.1 mmol/L 4.1 Chloride 97 - 105 mmol/L 101 CO2 22 - 30 mmol/L 29 Anion Gap 9 - 18 mmol/L 13 ALT 10 - 54 U/L 21 eGFR- 35 eGFR-All Other Races . 29 Iron 41 - 186 ug/dL 108 TIBC 232 - 386 ug/dL 370 Transferrin Saturation 15 - 57 % 29 Ferritin 30.3 - 565.7 ng/mL 45.6 Yaquelin Blanco MD 10/09/2017 4:20 PM Previous Version Nicky Knox LPN 10/09/2017 11:03 AM Signed Bari Romero is a 61 year old male here today for visit in [facility] Referring Surgeon: Dr. Dunn Date of Surgery: 10/17/2017 Planned Surgery/Procedure: COLECTOMY ABDOMINAL W/O Allergies have been reviewed and verified. They include the following: Patient has no known allergies. Social History Substance Use Topics - Smoking status: Former Smoker - Smokeless tobacco: Never Used - Alcohol use No Medications reviewed and updated: Yes Nicky Reyes MD 10/09/2017 9:41 AM Addendum [facility] Patient Instructions for Surgery We will arrange an ultrasound of your heart called an echo prior to surgery. You will be called with details of this test. FOOD INSTRUCTIONS: NO solid food or non-clear liquids for 8 hours prior to the arrival time for your surgery. Unless you are instructed otherwise, you are allowed to drink up to 12 ounces of clear liquids (e.g. water, black tea/coffee, fruit juice without pulp, Naif Norma, etc.) up until 2 hours prior to the arrival time for surgery. MEDICATION INSTRUCTIONS: Prior to Surgery: Do not take the following medications for 7 days prior to surgery: - any NSAID's (e.g. Motrin, Aleve, Arthrotec, Naproxen,etc) - any herbal preparations - Plavix Do not take any Vitamin E / multivitamins for 10-14 days before surgery You are allowed to take Tylenol if needed until the day of surgery. Do NOT STOP YOUR ASPIRIN as you have a cardiac/coronary stent. MEDICATION INSTRUCTIONS: Day/Morning of Surgery: The following medications should be taken with sips of water: Metoprolol, hydralazine, isosorbide (Imdur), sodium bicarbonate, protonix (Pantoprazole), aspirin DIABETES MANAGEMENT INSTRUCTIONS: Eat a usual diet until the day prior to surgery unless indicated by your surgeon/physician. If your blood sugar is below 70 mg/dl at any time, treat with ? cup of apple juice or naif norma, or 4 glucose tabs or 1 tube of oral glucose gel. MEDICATION INSTRUCTIONS: Prior to Surgery: ? Continue your insulin like usual MEDICATION INSTRUCTIONS: Day/Morning of Surgery: ? No Novolog insulin ? Please take HALF of your usual dose of tresiba insulin which will be 15 units in the morning before you come in for surgery If you have any questions or concerns regarding today's visit please do not hesitate to contact the [facility] center at [phone] or [phone], ext [phone]. Signature: Yaquelin Blanco MD Date: October 09, 2017 Previous Version Progress Notes ([facility]): Dorothy Bonner RN, RN 10/09/2017 11:41 AM Addendum ANESTHESIA PRE-OPERATIVE ASSESSMENT (PACE) SERVICE DATE: 10/09/2017 SERVICE TIME: 1055 ASSESSMENT AND PLAN: Bari Romero is a 61 year old male scheduled for COLECTOMY ABDOMINAL W/O PROCTECTOMY W/ ILEOSTOMY/ILEOPROCTOSTOMY, TOTAL per Surgery Request Case in MAIN on 10/17/17. PMH: 1. Colon ca- for above surgery 2. CAD/CA- s/p 3 NIKHIL to LAD in 2003. Takes imdur, asa (continuing) and plavix- already stopped for surgery. Has not taken nitro in greater than a year. Denies CP. Scheduled for echo later today. EKG today shows NSR. 3. HTN- metoprolol and hydralazine 4. HPL- simvastatin 5. COPD- chronic YODER unchanged. PRN albuterol used 1-2x/week. Has supplemental O2 at home (2L), uses at HS prn but not used regularly. 6. LADARIUS- does not use a cpap. Orthopnea- uses 1-2 pillows 7. Hx of RUL lobectomy in 2009 for benign mass 8. CKD4- labs pending. Hospitalized in August for hyperkalemia and NICK. Takes Na bicarb 9. DM- novolog and tresiba 10. PVD- no hx of intervention, takes pletal- last dose will be October 14 11. Anxiety- valium prn 12. Gout- colchicine and allpurinol 13. GERD- protonix 14. Chronic back pain- oxycodone prn 15. Bad experience with epidural (2009), problem with placement. [facility]: 3 FC: 2-3 METS: Patient denies any chest pain or undue shortness of breath with the above physical activity. states he can go up 1 flight of stairs without sob or cp. Patient WILL accept blood products. BLOOD WORK/PRODUCTS ORDERED: Type and Screen , Con ABO HISTORY OF CHRONIC PAIN: Yes -back- prn oxycodone PAIN MANAGEMENT OPTIONS: Routine/PRN IV and Final pain management plan will be discussed on the day of surgery. ANESTHETIC OPTIONS: General and Final anesthesia management options will be discussed on day of surgery. PRE-OP PLAN ORDERED: Not Applicable Patient Instructed: ? No solid food or non-clear liquids after midnight. Clear liquids allowed until two hours before scheduled arrival. ? Patient instructed to take the following medications with a sip of water: hydralazine, metoprolol, albuterol, protonix, tresiba half dose, na bicarb, asa, oxycodone prn, valium prn. ? Diabetic instructions discussed. Vital Signs: BP 135/75 Pulse 93 Ht 185.4 cm (6' 0.99) Wt 108 kg (238 lb 1.6 oz) SpO2 96% BMI 31.42 kg/m? BMI 31.42 kg/(m2) Vital signs completed by: JUNE Weight acquired: per HANDP. Height acquired: per HANDP Airway Exam: MOUTH OPENING/TMJ: Full jaw ROM MICROGNATHIA/OVERBITE: No MALLAMPATI SCORE is CLASS II UPPER LIP BITE TEST: Class I - Lower incisors can bite the upper lip above the zackery line DENTITION: dentures- full THYROMENTAL DIST: WNL SHORT NECK: Yes, has long kemp NECK CIRCUMFERENCE >40 cm: Appears < than 40 CM NECK FLEX: Full ROM NECK EXTENSION: Full ROM AIRWAY HISTORY: No abnormal airway history ARKS AIRWAY DETAIL: N/A DATA: EKG READING: Unconfirmed - SR 85 OTHER TESTS: Echo: Date: pending today Patient accompanied by self Case Discussed with Dr Boyd OPTIMIZATION STATUS: Patient optimization pending Labs IMPACT ECHO- IMPACT and PACE SIGNATURE: Dorothy Bonner RN PATIENT NAME: Bari Romero DATE: October 09, 2017 TIME: 11:30 AM PAGER/CONTACT #: 10/10/2017 Addendum: Echo report: CONCLUSIONS: - Technically difficult exam due to body habitus. - Exam indication: Pre-op clearance for non cardiac procedure - The left ventricle is normal in size. There is mild concentric left ventricular hypertrophy. Left ventricular systolic function is normal. EF = 58 ? 5% (2D biplane) Grade I left ventricular diastolic dysfunction. - The right ventricle is normal in size. Right ventricular systolic function is normal. - The patient has not had a prior CC echocardiographic exam for comparison. ? Jovita Adair RN Previous Version HISTORY PHYSICAL Observed: 10/02/2017 Status: COMPLETED Source: [place] 2:57 PM [facility] REPOSITORY HNO ID: [id number] Author: Luis Dunn Service: (none) Author Type: Physician Type: HANDP Filed: 10/03/2017 4:37 PM Note Text: New Patient Consult REASON FOR VISIT Bari Romero is a 61 year old male who is scheduled for a consult at the request of Chaparro Ku for Colon Cancer. My final recommendations will be communicated back to the requesting physician by the way of the shared medical record, fax, or via US Mail History of Present Illness: Eval for surgery colon CA. Referred by Dr. Ku. No prior colo and underwent a screening colo with multiple polyps and a biopsy proven CA of the hepatic flexure. Multiple associated co-morbidities. Weight stable. Recent hospitalization for hyperkalemia, CKD. BM have been normal without a change (may occasionally have blood but self limited). On ROS: No FHx CRC or ovarian/endometrial CA PMHx: coronary artery disease, hypertension, type 2 diabetes, myocardial infarction, COPD, acute on chronic renal failure. This is stage IV, the reasons not on dialysis. multiple coronary stents placed and a right thoracotomy with what sounds like 2 lobectomies for benign tumor in 2009. The patient's quit smoking in April of this year TESTIN09/18/2017 CT a/p (don?t have discs) Inflammation overlying diverticulum of distal ascending colon and sigmoid colon. This suggests multifocal diverticulitis 17mm linear foreign body in ascending colon. 11mm linear foreign body in distal transverse colon CEA 2.5 09/18/2017 Colonoscopy /EGD by Dr. Ku There were many polyps seen. Again, throughout the ascending colon and the transverse colon, usually 1-2 polyps every 1-2 folds. Some were sessile, somewhat pedunculated. Hoping that there will be fewer polyps in the descending colon. An additional clip was placed what was felt to be a transition of slightly fewer polyps. This, on follow-up KUB was demonstrated to be the splenic flexure. Polyps were taken. Proximal and distal to that clip proximal polyps including tubular adenomas. Polyps in the descending colon to sigmoid area to remove returned as hyperplastic polyps. Pathology: A. Antral biopsy: Mild gastritis. B. Hepatic flexure, biopsy: Invasive adenocarcinoma. Hyperplastic polyp. See comment. C. Polyp proximal to clip, biopsy: Fragments of tubular adenoma. D. Polyp at 30 cm, biopsy: Hyperplastic polyp. COMMENT A. The results of immunohistochemistry for Helicobacter pylori will be reported separately ([id number]). B. The results of Immunohistochemistry ([id number]) for mismatch repair of protein will be reported separately. Case has been reviewed in consultation with Dr. Fairchild who concurs with the above diagnosis. IDC:AM FUNCTIONAL STATUS: Walk a block or two on level ground (2.75 METs) PAST MEDICAL HISTORY Diagnosis Date - Atrial fibrillation (HCC) - BPH (benign prostatic hyperplasia) - CAD (coronary artery disease) - COPD (chronic obstructive pulmonary disease) (HCC) - DM (diabetes mellitus) (HCC) - Gout - Hematest positive stools - HTN (hypertension) - Increased PTH level - Influenza B - Iron deficiency anemia - Low vitamin D level - Lower GI bleed - Metabolic acidosis - Nocturnal hypoxia - Non-STEMI (non-ST elevated myocardial infarction) (HCC) - NSAID long-term use - LADARIUS (obstructive sleep apnea) - Renal failure - Renal failure - Respiratory failure (HCC) - Severe sepsis (HCC) PAST SURGICAL HISTORY Procedure Laterality Date - CABG (1) VEIN GRAFT AND ARTERIAL GRAFT - REMOVAL OF LUNG FAMILY HISTORY Problem Relation Age of Onset - COPD Mother - Leukemia Father Social History Substance Use Topics - Smoking status: Former Smoker - Smokeless tobacco: Not on file - Alcohol use No The patient has the following: Problem List Noted Noted By Resolved Resolved By Chest mass 09/26/2017 Amy Vuong LPN No MEDICATIONS Current Outpatient Prescriptions: albuterol (PROVENTIL) 2.5 mg /3 mL (0.083 %) nebulizer solution inhale 1 vial in nebulizer every 4 to 6 hours if needed for shortness of breath or wheezing Disp: Rfl: 0 allopurinol (ZYLOPRIM) 300 mg tablet Disp: Rfl: 0 CONTOUR NEXT TEST STRIPS test strip Disp: Rfl: 0 cilostazol (PLETAL) 100 mg tablet Disp: Rfl: 0 COLCRYS 0.6 mg tablet Disp: Rfl: 0 diazePAM (VALIUM) 5 mg tablet take 1 tablet by mouth twice a day for INVOLUNTARY MUSCLE SPASM Disp: Rfl: 0 diazePAM (VALIUM) 10 mg tablet Disp: Rfl: 0 VITAMIN D 50,000 unit capsule Disp: Rfl: 0 ferrous sulfate 325 mg (65 mg iron) tablet Take 1 tablet by mouth once daily. Disp: Rfl: 0 finasteride (PROSCAR) 5 mg tablet Take 5 mg by mouth once daily. Disp: Rfl: 0 hydrALAZINE (APRESOLINE) 25 mg tablet Take 25 mg by mouth three times daily. Disp: Rfl: 0 NOVOLOG FLEXPEN U-100 INSULIN 100 unit/mL inpn Disp: Rfl: 0 TRESIBA FLEXTOUCH U-200 200 unit/mL (3 mL) injection Disp: Rfl: 0 isosorbide mononitrate ER (IMDUR) 30 mg 24 hr tablet Take 30 mg by mouth once daily. Disp: Rfl: 0 lisinopril (ZESTRIL, PRINIVIL) 20 mg tablet Take 20 mg by mouth once daily. Disp: Rfl: 0 oxyCODONE IR (ROXICODONE) 5 mg immediate release tablet Take 5 mg by mouth twice daily as needed. Disp: Rfl: 0 trimethoprim-polymyxin eye drops (POLYTRIM) ophthalmic solution place 1 drop into left eye four times a day Disp: Rfl: 0 sodium bicarbonate 650 mg tablet Take 650 mg by mouth twice daily. Disp: Rfl: 0 No current facility-administered medications for this visit. CURRENT ALLERGIES ALLERGIES No Known Allergies REVIEW OF SYSTEMS PAIN ASSESSMENT: General: No weight loss, malaise or fevers. Neuro: Neg Respiratory: No history of current cough or dyspnea, or pneumonia in the past 6 weeks. No history of respiratory/pulmonary symptoms or problems Cardiovascular: Positive for: Hypertension, 3 stents placed 2009 GI: Positive for Colon cancer, History of polyps : Stage 4 kidney disease MIXER WET POUR: N/A : N/A Endocrine: Diabetes Mellitus on insulin Hematology: Easy bruising / bleeding Oncology: No history of CA metastasis, chemo within 30 days, or radiotherapy within 90 days. Has not lost 10% of body wt in 6 months. No history of oncological symptoms or problems. Psych: No history of psychiatric symptoms or problems. Musculoskeletal: Back pain Skin: Negative for lesions, rash and itching. Anemia: No PHYSICAL EXAMINATION There were no vitals taken for this visit. General Appearance: Well appearing, alert, in no acute distress, well-hydrated, well nourished. Skin: Skin color, texture, turgor normal, no suspicious rashes or lesions Head: Normocephalic, no masses, lesions, tenderness or abnormalities Oropharynx: Lips, mucosa, and tongue normal, teeth and gums normal, oropharynx normal Neck: Supple, no adenopathy; thyroid symmetric, normal size, no bruits Lungs: Lungs clear to auscultation. No wheezing, rhonchi, rales Heart: RRR without murmur, gallop, or rubs. No ectopy Extremities: No deformities, edema, skin discoloration, clubbing or cyanosis. Good capillary refill. Neuro: Gait normal. Reflexes normal and symmetric. Sensation grossly intact. 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 After digital exam with a lubricated finger, the scope was easily inserted to 40 cm. Findings: The preparation was poor at 40cm. There was 3 small polyps in the proximal (2) and mid (1) rectum on the second rectal valve The remainder of the sigmoid, rectum and anal canal were entirely normal. Complete excision was performed with hot and cold snare of the 3 polyps seen. None in the rectum. Diagnostic tests reviewed for today's visit: Colonoscopy Report Pathology Report CT imaging Assessment ASSESSMENT Colon cancer with polyposis Multiple medical comobordities RECOMMENDATION - Genetics consult due to the multple polyps (seen here today) - CT chest to complete staging but the CT demonstrated no sign of metastatic disease - preoperative clearances due to the multiple health issues - OR for colonoscopy, laparoscopic total abdominal colectomy with JADE and DLI Procedure:Lap STC with ileorectal vs ileosigmoid, colonoscopy vs flex sigmoidoscopy and diverting ostomy. The risks, benefits and anticipated outcomes of the procedure, the risks and benefits of the alternatives to the procedure, and the roles and tasks of the personnel to be involved, were discussed with the patient, and the patient consents to the procedure and agrees to proceed. Luis Dunn MD DATE: 10/02/17 TIME: 2:57 PM PROGRESS Observed: 09/27/2017 Status: COMPLETED Source: [place] 8:47 AM [facility] [place] REPOSITORY O ID: [id number] Author: Chaparro Ku Service: (none) Author Type: Physician Type: Progress Notes Filed: 09/30/2017 11:13 AM Note Text: FOLLOW UP VISIT - ENDOSCOPY NAME: Bari Romero [facility] NO.: [id number] DATE OF SERVICE: 09/26/2017 : 1955 REFERRING PHYSICIAN: Bari is a patient I am following for lower GI bleeding. The patient was admitted to [facility] and I was consulted on September 16, 2017. The patient was found to have anemia with a hemoglobin of 7.9, and heme positive stools. The patient had noted some blood in his stools previously. He was taking iron so always noted a degree of dark stools but had no large bleeding episodes that he noted. The patient has an extensive past medical history including coronary artery disease, hypertension, type 2 diabetes, myocardial infarction, COPD, acute on chronic renal failure. This is stage IV, the reasons not on dialysis. He had multiple coronary stents placed and a right thoracotomy with what sounds like 2 lobectomies for benign tumor in 2009. The patient's quit smoking in April of this year. He had not had previous colonoscopy I performed upper and lower endoscopy on September 18, 2017. The patient was found to have mild gastritis on upper endoscopy. Colonoscopy demonstrated many polyps throughout the colon along with a tumor at the hepatic flexure. It was nearly circumferential with slight narrowing but no obstruction present in the tumor itself was oozing prior to biopsy. The site was biopsied in multiple locations. The site was then tattooed with Dodie ink and a clip placed just proximal to the hepatic flexure tumor. On insertion, it was thought that there were fewer polyps in the ascending and sigmoid region but the colon was not completely cleaned out and there was some bloody liquid present, plus I did not use significant insufflation on the way in. As the scope was withdrawn. There were many polyps seen. Again, throughout the ascending colon and the transverse colon, usually 1-2 polyps every 1-2 folds. Some were sessile, somewhat pedunculated. Hoping that there will be fewer polyps in the descending colon. An additional clip was placed what was felt to be a transition of slightly fewer polyps. This, on follow-up KUB was demonstrated to be the splenic flexure. Polyps were taken. Proximal and distal to that clip proximal polyps including tubular adenomas. Polyps in the descending colon to sigmoid area to remove returned as hyperplastic polyps. The patient notes no complaints since the procedure. VITALS: There were no vitals taken for this visit. On examination, the abdomen is benign. Assessment IMPRESSION: Right colon cancer arising in a patient with polyposis of the entire colon, some sparing of the descending sigmoid PLAN: I spoke with Dr. Luis Dunn, head of colorectal surgery clinic [facility]. We understand that the patient would prefer to avoid a colostomy. Given the fact that the patient's Plavix is now being held, we had discussed repeat lower endoscopy and attempt to remove more of polyps in the descending sigmoid area. Dr. Dunn would prefer to do that procedure himself in communication to help decide the location of transection for his likely subtotal or near total colectomy. Diagnoses: (C18.3) Malignant neoplasm of hepatic flexure (HCC) (primary encounter diagnosis) (K63.5) Polyposis of colon Return to Clinic: The patient is instructed to follow- up with me as needed. Chaparro Ku MD CNOV Observed: 09/26/2017 Status: COMPLETED Source: [place] 2:30 PM [facility] REPOSITORY Office Visit (GENSWS) BARI ROMERO ([id number]) 1955 Date Time Provider Department 09/26/17 2:30 PM CHAPARRO KU During your visit today, we recorded the following information about you: Chaparro Ku MD 09/30/2017 11:13 AM Signed FOLLOW UP VISIT - ENDOSCOPY NAME: Bari Romero CLINIC NO.: [id number] DATE OF SERVICE: 09/26/2017 : 1955 REFERRING PHYSICIAN: Bari is a patient I am following for lower GI bleeding. The patient was admitted to [facility] and I was consulted on September 16, 2017. The patient was found to have anemia with a hemoglobin of 7.9, and heme positive stools. The patient had noted some blood in his stools previously. He was taking iron so always noted a degree of dark stools but had no large bleeding episodes that he noted. The patient has an extensive past medical history including coronary artery disease, hypertension, type 2 diabetes, myocardial infarction, COPD, acute on chronic renal failure. This is stage IV, the reasons not on dialysis. He had multiple coronary stents placed and a right thoracotomy with what sounds like 2 lobectomies for benign tumor in 2009. The patient's quit smoking in April of this year. He had not had previous colonoscopy I performed upper and lower endoscopy on September 18, 2017. The patient was found to have mild gastritis on upper endoscopy. Colonoscopy demonstrated many polyps throughout the colon along with a tumor at the hepatic flexure. It was nearly circumferential with slight narrowing but no obstruction present in the tumor itself was oozing prior to biopsy. The site was biopsied in multiple locations. The site was then tattooed with Dodie ink and a clip placed just proximal to the hepatic flexure tumor. On insertion, it was thought that there were fewer polyps in the ascending and sigmoid region but the colon was not completely cleaned out and there was some bloody liquid present, plus I did not use significant insufflation on the way in. As the scope was withdrawn. There were many polyps seen. Again, throughout the ascending colon and the transverse colon, usually 1-2 polyps every 1-2 folds. Some were sessile, somewhat pedunculated. Hoping that there will be fewer polyps in the descending colon. An additional clip was placed what was felt to be a transition of slightly fewer polyps. This, on follow-up KUB was demonstrated to be the splenic flexure. Polyps were taken. Proximal and distal to that clip proximal polyps including tubular adenomas. Polyps in the descending colon to sigmoid area to remove returned as hyperplastic polyps. The patient notes no complaints since the procedure. VITALS: There were no vitals taken for this visit. On examination, the abdomen is benign. Assessment IMPRESSION: Right colon cancer arising in a patient with polyposis of the entire colon, some sparing of the descending sigmoid PLAN: I spoke with Dr. Luis Dunn, head of colorectal surgery clinic [facility]. We understand that the patient would prefer to avoid a colostomy. Given the fact that the patient's Plavix is now being held, we had discussed repeat lower endoscopy and attempt to remove more of polyps in the descending sigmoid area. Dr. Dunn would prefer to do that procedure himself in communication to help decide the location of transection for his likely subtotal or near total colectomy. Diagnoses: (C18.3) Malignant neoplasm of hepatic flexure (HCC) (primary encounter diagnosis) (K63.5) Polyposis of colon Return to Clinic: The patient is instructed to follow- up with me as needed. Chaparro Ku MD Referring Provider: SELF [200] Allergies As of Date: 09/26/2017 (No Known Allergies) Date Reviewed: 09/26/2017 Reviewed by: Amy Vuong LPN - Fully Assessed Reason for Visit: Post Op [174] Primary Visit Diagnosis:Malignant neoplasm of hepatic flexure (HCC) [C18.3] Other Visit Diagnosis:Polyposis of colon [K63.5] Prescriptions as of 09/26/2017 Sig: ALBUTEROL SULFATE 2.5 MG/3 ML* inhale 1 vial in nebulizer ev* ALLOPURINOL 300 MG TABLET CONTOUR NEXT TEST STRIPS CILOSTAZOL 100 MG TABLET COLCRYS 0.6 MG TABLET DIAZEPAM 5 MG TABLET take 1 tablet by mouth twice * DIAZEPAM 10 MG TABLET VITAMIN D2 50,000 UNIT CAPSULE FERROUS SULFATE 325 MG (65 MG* Take 1 tablet by mouth once d* FINASTERIDE 5 MG TABLET Take 5 mg by mouth once daily. HYDRALAZINE 25 MG TABLET Take 25 mg by mouth three quique* NOVOLOG FLEXPEN U-100 INSULIN* TRESIBA FLEXTOUCH U-200 INSUL* ISOSORBIDE MONONITRATE ER 30 * Take 30 mg by mouth once anabela* LISINOPRIL 20 MG TABLET Take 20 mg by mouth once anabela* OXYCODONE 5 MG TABLET Take 5 mg by mouth twice anabela* POLYMYXIN B SULFATE 10,000 UN* place 1 drop into left eye fo* SODIUM BICARBONATE 650 MG TAB* Take 650 mg by mouth twice da* Problem List As Of Date 09/26/2017 Noted Resolved Chest mass [R22.2] INVALID FOR* Follow-up and Disposition History Recorded Encounter Status:Closed by CHAPARRO KU MD on 09/30/17 12 LEAD ELECTROCARDIOGRAM Observed: 09/23/2017 Status: F Source: [place] 1:14 PM [facility] REPOSITORY [facility] Cardiovascular Services [address] [place] [address] 12 Lead EKG 09/16/17 0548 MR#: [id number] Acct: [id number] Name: BARI ROMERO Rep #: [id number] : 1955 61 From: Danis Loza MD Attending Dr: Kelechi Adler MD Status: DIS IN Ordering Dr: John Marcum DO Date: 09/16/17 Location: [facility] Sex: John C Admitted: 09/15/17 Test Reason : AM EKG Blood Pressure : / mmHG Vent. Rate : 089 BPM Atrial Rate : 089 BPM P-R Int : 204 ms QRS Dur : 082 ms QT Int : 340 ms P-R-T Axes : 055 073 065 degrees QTc Int : 413 ms Normal sinus rhythm Normal ECG When compared with ECG of 15-SEP-2017 13:13, MANUAL COMPARISON REQUIRED, DATA IS UNCONFIRMED Confirmed by DAGO ASIF, DANIS ([id number]), advertising editor KEVIN MORRELL ([id number]) on 09/23/2017 1:14:43 PM Referred By: DR MARCUM Confirmed By:DANIS LOZA MD 09/23/17 1314 Date Danis Loza MD CC: Alena Marcum; Caesar Chavez DO; Kelechi Adler MD Signed CBC W/DIFF, AUTOMATED Collected: 09/23/2017 Status: F Source: [place] 11:03 AM [facility] REPOSITORY TYPE CODE TESTS RESULT OUT OF RANGE REFERENCE UNITS LAB L100.1000 4.4-11.0 K/mm3 Normal WBC 7.8 LAB L100.1200 4.6-6.2 M/mm3 Low RBC 3.82 LAB L100.1300 13.0-16.5 g/dl Low HGB 9.8 LAB L100.1400 40-54 % Low HCT 32.3 LAB L100.1500 80-94 fL Normal MCV 84.6 LAB L100.1600 27.0-32.0 pg Low MCH 25.7 LAB L100.1700 32-36 g/gl Low MCHC 30.3 LAB L100.1810 11.6-14.6 % High RDW CV 15.0 LAB L100.1820 35.1-43.9 fl High RDW SD 46.5 LAB L100.1900 150-450 K/mm3 Normal PLT 264 LAB L100.2000 6.2-12.0 fl High MPV 12.2 LAB L100.2100 47-70 % Normal NEUT% 67.5 LAB L100.2200 19-41 % Low LY% 18.9 LAB L100.2300 0-10 % Normal MONO% 7.4 LAB L100.2400 0-5 % High EO% 5.7 LAB L100.2500 0-1 % Normal BASO% 0.4 LAB L100.2550 0.0-0.9 % Normal IM GRAN % 0.100 Result Comment: IG% - Immature Granulocytes (promyelocytes, myelocytes and metamyelocytes) > 1% indicates that a LEFT SHIFT is Present. LAB L100.2620 2.0-7.7 X10 3/uL Normal Absolute Neut 5.3 LAB L100.2720 0.83-4.51 X10 3/ul Normal Absolute Lymph 1.48 Performed By: #### L100.0100 #### [facility] [address] [place], [address] RENAL PROFILE Collected: 09/23/2017 Status: F Source: [place] 11:03 AM [facility] REPOSITORY TYPE CODE TESTS RESULT OUT OF RANGE REFERENCE UNITS LAB L501.0100 74-106 mg/dL High GLU 135 Result Comment: Fasting Glucose result greater than or equal to 126 mg/dL suggests DIABETES MELLITUS per A.D.A. criteria. Please note revised GLUCOSE reference range effective 2017. LAB L501.1000 7-18 mg/dL High BUN 52 LAB L501.1100 0.70-1.30 mg/dL High CREAT,SERUM 2.45 Result Comment: The validity of the calculated GFR AND GFRAA in patients over 70 years has not been determined. Clinical correlation is essential. LAB L501.1110 >60 mL/min Low EST GFR 29 Result Comment: Non- GFR Calc LAB L501.1115 >60 mL/min Low EST GFR - AA 35 Result Comment: GFR Calc LAB L501.1300 10-20 RATIO High BUN/CRE 21.2 LAB L501.1800 3.2-5.0 g/dL Normal ALB 3.6 LAB L501.2200 8.5-10.1 mg/dL CA Normal 9.3 LAB L501.2300 2.5-4.9 mg/dL Normal PHOS 3.3 LAB L501.5300 136-145 mmol/L NA Normal 141 LAB L501.5600 3.5-5.1 mmol/L K Normal 4.4 LAB L501.5900 98-107 mmol/L High CL 110 LAB L501.6100 21.0-32.0 mmol/L Low CO2 19.0 Performed By: #### L500.3600 #### [facility] [address] [place], [address] PROGRESS Observed: 09/21/2017 Status: COMPLETED Source: [place] 9:49 AM [facility] REPOSITORY HNO ID: [id number] Author: Chaparro Ku Service: (none) Author Type: Physician Type: Progress Notes Filed: 09/21/2017 9:54 AM Note Text: OPERATIVE NOTATION FOR [facility] SURGICAL PROCEDURE. September 18, 2017 Bari Romero 1955 [id number] male PROCEDURE: COLONOSCOPY WITH BIOPSY - 05605-824, COLONOSCOPY WITH INJECTION/MARKING - 51349-73? and COLONOSCOPY WITH SNARE POLYPECTOMY- 08463-290 SURGEON: Bhaskar Ku M.D. FACS STAMPING OPERATOR: None DEPT: WQ PROVIDER: [id number] Ku MD POS: [id number] DIAGNOSIS: (C18.3) Malignant neoplasm of hepatic flexure (HCC) (primary encounter diagnosis) (K63.5) Polyposis of colon ASA CLASS: 3 - Severe FINDINGS: COMPLICATIONS: None PMHx - No past medical history on file. COMORBIDITIES - Smoking/Tobacco, Obesity, Chronic Pulmonary, COPD, CHF, CAD, Hx Cardiac Surgery and Cr>2mg Post Op Occurrences - None Wound Classification - Clean Contaminated Operative note dictated in the [facility] dictation system. Chaparro Ku MD DISCHARGE SUMMARY Observed: 09/19/2017 Status: F Source: [place] 11:53 AM [facility] REPOSITORY [facility] Medical Records Department [address] [place] [address] Discharge Summary 09/19/17 1046 MR#: [id number] Acct: [id number] Name: BARI ROMERO Rep #: [id number] : 1955 61 From: Kelechi Adler MD PCP: Caesar Chavez DO Status: ADM IN Y [facility] Date and Diagnosis - Problem List Patient Problems: Active and Suspected Problems (Last Updated 09/16/17 @ 10:30 by Kelechi Adler MD) Hyperkalemia (Acute) Date of Admission: 09/15/17 Date of Discharge: 09/19/17 - Primary Discharge Diagnosis Active and Suspected Problems (Last Updated 09/16/17 @ 10:30 by Kelechi Adler MD) Hyperkalemia (Acute) NICK on CKD stage IV Colonic mass. - Secondary Discharge Diagnosis Chronic Problems (Last Updated 09/16/17 @ 10:30 by Kelechi Adler MD) Heme + stool (Chronic) Anemia of chronic renal failure (Chronic) H/O pneumonectomy (Chronic) Right due to benign tumor Peripheral vascular disease (Chronic) COPD (chronic obstructive pulmonary disease) (Chronic) Radiculopathy affecting upper extremity (Chronic) Iron deficiency anemia (Chronic) Increased PTH level (Chronic) Low vitamin D level (Chronic) Paroxysmal atrial fibrillation (Chronic) Chronic renal failure, stage 4 (severe) (Chronic) Nocturnal hypoxia (Chronic) Noncompliance with CPAP treatment (Chronic) LADARIUS (obstructive sleep apnea) (Chronic) Gout (Chronic) History of tobacco abuse (Chronic) quit in April 2017 Hx of CABG (Chronic) x3 2003 Coronary artery disease (Chronic) has had 3 stents.....the last stent he thinks in 2008 Hypertension (Chronic) Diabetes mellitus type 2 in obese (Chronic) Non-STEMI (non-ST elevated myocardial infarction) (Chronic) Hospital Course and Treatment Imaging Results: 09/19/17 05:30 Chest PA and Lateral [RAD] Urgent Impressions KUB X-Ray 09/18/17 17:54 IMPRESSION: Inflammation overlying the diverticulum of the distal ascending colon and sigmoid colon. This suggests multifocal diverticulitis. 17mm linear foreign body in the ascending colon. 11mm linear foreign body in the distal transverse colon. Other findings as above. Electronically Signed: Zarie Hunter MD at 19:26 EDT , Service support , Abdomen/Pelvis CT 09/18/17 17:55 IMPRESSION: Inflammation overlying the diverticulum of the distal ascending colon and sigmoid colon. This suggests multifocal diverticulitis. 17mm linear foreign body in the ascending colon. 11mm linear foreign body in the distal transverse colon. Other findings as above. Electronically Signed: Zaire Hunter MD at 19:26 EDT , Service support , Abdomen X-Ray 09/18/17 23:11 IMPRESSION: Normal x-ray examination of the abdomen and pelvis. Electronically Signed: Hugo Pizarro MD at 0:14 EDT Tel , Service support , Chest X-Ray 09/19/17 05:30 IMPRESSION: Stable examination. Electronically Signed: Herbert Carroll MD at 9:24 EDT Tel [phone], Service support , 09/18/17 17:54 KUB [Abdomen Single View] [RAD] Urgent 09/18/17 17:55 CT Abd [Abdomen/Pelvis without Cont] [CT] Urgent 09/18/17 23:11 XRAY Abdomen [Abd Inc Decub and/or Erect] [RAD] Urgent 09/19/17 05:30 Chest PA and Lateral [RAD] Urgent 09/15/17 13:55 Stool Stool Occult Blood (ИВАН) - Final Occult Blood Positive Laboratory Results POC Glucose 129 H 134 H 155 H (70-110) mg/dL General surgery Procedures: Colonoscopy, - - Endoscopy Summary of Care Provided: The patient is a 61 year old M with a significant medical history of hypertension, diabetes mellitus 2, CAD, coronary stents, CKD stage IV, BPH, partial right pneumonectomy, gout anemia and COPD who was admitted through emergency department because of an outpatient potassium level of 6.8. His repeat potassium at emergency department was 7.0. Patient was admitted because of hyperkalemia. Also he had non-anion gap metabolic acidosis. Patient receive appropriate treatments for his hyperkalemia with Kayexalate, insulin and IV sodium bicarbonate. Because of NICK on CKD patient was appropriately hydrated. And because of non-anion gap metabolic acidosis the patient was also restarted on p.o. sodium bicarbonate that he had run out of while at home.. Because patient complained of diarrhea and anemia an occult blood test was done which returned positive. General surgery was consulted. An upper endoscopy showed some mild gastritis. And a colonoscopy showed a mass in his hepatic flexure which was biopsied.. Multiple polyps in his colon were found and he had a polypectomy for some of these polyps. Patient and General Surgery agreed on an office visit and a possible referral to see a specialist in [facility]. During patient's visit, aspirin and Plavix was discontinued because of the positive fecal occult blood test. At the time of discharge a shared decision was made to continue patient on aspirin but to stop his Plavix until a decision is made on his colonic mass and after further discussion with his PCP. He was also instructed to follow up with cardiology because of his history of CAD and use of the dual antiplatelet therapy On the day of discharge a comprehensive physical examination was done. Heart sounds S1, S2 present with no murmur, gallop or rubs. His lungs were clear to diminished on auscultation. His belly was nontender and nondistended and bowel sounds were present. He had no edema or cyanosis in his extremity. And is his pulses were normal bilaterally. [] Discharge Activity: Return to Normal Activity Call your doctor if you observe: Fever of 101 or Higher, Uncontrolled pain Home Medications: Medications to take at Discharge Albuterol Inhaler [Ventolin Hfa] 1 - 2 puff INHALATION Q6H PRN PRN 05/14/17 Aspirin 81 mg PO DAILY 05/14/17 Insulin Aspart [Novolog Flexpen] 45 units SC TIDCM 05/14/17 Insulin Degludec [Tresiba Flextouch U-100] 60 unit SC BID 05/14/17 Nitroglycerin [Nitrostat] 0.4 mg SUBLINGUAL Q5M PRN 05/14/17 Oxycodone [Oxyir] 5 mg PO BID PRN PRN 05/14/17 Simvastatin 80 mg PO QHS 05/14/17 Oxygen, Home [Home Oxygen] 2 - 3 lpm NASAL UD #1 unit 05/18/17 Albuterol Aerosols [Ventolin Aerosols] 2.5 mg INHALATION Q4H PRN PRN 09/15/17 Allopurinol [Zyloprim] 300 mg PO DAILYCM 09/15/17 Cilostazol 100 mg PO BID 09/15/17 Colchicine 0.6 mg PO TID PRN 09/15/17 Ergocalciferol [Vitamin D] 50,000 unit PO Q7D 09/15/17 Ferrous Sulfate 325 mg PO DAILY 09/15/17 Finasteride [Proscar] 5 mg PO DAILY 09/15/17 Isosorbide Mononitrate [Imdur] 30 mg PO DAILY 09/15/17 Metoprolol(XL)Succ [Toprol Xl (Beta Vanesa)] 50 mg PO DAILY 09/15/17 Nebulizer [Aeroneb Go Nebulizer] 1 each MC 4X/DAY 09/15/17 Pantoprazole Sodium [Protonix] 40 mg PO DAILY 09/15/17 Tamsulosin HCl [Flomax] 0.4 mg PO DAILY@1730 09/15/17 hydrALAZINE [Apresoline] 25 mg PO TID 09/15/17 Sodium Bicarbonate 650 mg PO TID 30 Days #90 tab 09/19/17 Following Prescrptions Were Given to Patient: Sodium Bicarbonate 650 mg PO TID 30 Days #90 tab Primary Care Physician: Caesar Chavez DO [Primary Care Provider] - Please follow up with your Primary Care Physician in: 5-10 days Please Follow Up With: Chaparro Ku MD When: 3 to 7 days Please Follow Up With: Daysi Magana DO When: 5 to 10 days Disposition: Home Minutes spent on discharge:: 25 Patient Condition:: Good Medical Necessity - Tobacco Use Smoking Status: Former smoker Tobacco Use: Non-smoker Meaningful Use Info Meaningful Use Diagnoses (Choose all that apply): None applicable Code Visit Inpatient E AND M: 02699 Disch Hosp 09/19/17 1153 <Electronically signed by Kelechi Adler MD> Date Kelechi Adler MD Cosigner Signature (if applicable): Date CC: Caesar Chavez DO; Kelechi Adler MD Signed DISCHARGE INSTRUCTION Observed: 09/19/2017 Status: F Source: [place] 10:46 AM [facility] REPOSITORY [facility] Medical Records Department [address] [place] [address] Instructions for Home/Discharge Instructions 09/19/17 1033 MR#: [id number] Acct: [id number] Name: BARI ROMERO Rep #: [id number] : 1955 61 From: Kelechi Adler MD PCP: Caesar Chavez DO Status: ADM IN - Discharge Diagnoses Current Active Problems: Current Active and Chronic Problems (Last Updated 09/16/17 @ 10:30 by Kelechi Adler MD) Hyperkalemia (Acute) Anemia of chronic renal failure (Chronic) H/O pneumonectomy (Chronic) Right due to benign tumor Peripheral vascular disease (Chronic) You will use the following diet at home:: Calorie/Carbohydrate Controlled (specify 1200, 1400, etc) - 1800 per day. Your food should be the consistency of: Regular Discharge Activity: Return to Normal Activity Call your doctor if you observe: Fever of 101 or Higher, Uncontrolled pain Allergies/Adverse Reactions: Allergies No Known Allergies Allergy (Verified 08/12/17 10:31) Medications to take at Discharge Albuterol Inhaler [Ventolin Hfa] 1 - 2 puff INHALATION Q6H PRN PRN 05/14/17 Aspirin 81 mg PO DAILY 05/14/17 Insulin Aspart [Novolog Flexpen] 45 units SC TIDCM 05/14/17 Insulin Degludec [Tresiba Flextouch U-100] 60 unit SC BID 05/14/17 Nitroglycerin [Nitrostat] 0.4 mg SUBLINGUAL Q5M PRN 05/14/17 Oxycodone [Oxyir] 5 mg PO BID PRN PRN 05/14/17 Simvastatin 80 mg PO QHS 05/14/17 Oxygen, Home [Home Oxygen] 2 - 3 lpm NASAL UD #1 unit 05/18/17 Albuterol Aerosols [Ventolin Aerosols] 2.5 mg INHALATION Q4H PRN PRN 09/15/17 Allopurinol [Zyloprim] 300 mg PO DAILYCM 09/15/17 Cilostazol 100 mg PO BID 09/15/17 Colchicine 0.6 mg PO TID PRN 09/15/17 Ergocalciferol [Vitamin D] 50,000 unit PO Q7D 09/15/17 Ferrous Sulfate 325 mg PO DAILY 09/15/17 Finasteride [Proscar] 5 mg PO DAILY 09/15/17 Isosorbide Mononitrate [Imdur] 30 mg PO DAILY 09/15/17 Metoprolol(XL)Succ [Toprol Xl (Beta Vanesa)] 50 mg PO DAILY 09/15/17 Nebulizer [Aeroneb Go Nebulizer] 1 each MC 4X/DAY 09/15/17 Pantoprazole Sodium [Protonix] 40 mg PO DAILY 09/15/17 Tamsulosin HCl [Flomax] 0.4 mg PO DAILY@1730 09/15/17 hydrALAZINE [Apresoline] 25 mg PO TID 09/15/17 Sodium Bicarbonate 650 mg PO TID 30 Days #90 tab 09/19/17 Primary Care Physician: Caesar Chavez DO [Primary Care Provider] - Please follow up with your Primary Care Physician in: 5-10 days Test Results: Test results from this visit will be discussed in further detail at your follow-up appointment, if applicable. Please Follow Up With: Chaparro Ku MD When: 3 to 7 days Please Follow Up With: Daysi Magana DO When: 5 to 10 days 09/19/17 1046 <Electronically signed by Kelechi Adler MD> Date Kelechi Adler MD CC: Caesar Chavez DO; Daysi Magana DO; Chaparro Ku MD BEDSIDE GLUCOSE Collected: 09/19/2017 Status: F Source: [place] 6:50 AM [facility] REPOSITORY TYPE CODE TESTS RESULT OUT OF REFERENCE UNITS RANGE LAB L501.080 70-110 mg/dL High BEDSIDE GLU 155 Result Comment: MANAGEMENT OF PATIENT CARE PER NURSING PROTOCOL Performed By: #### L501.080 #### [facility] Point of [place] [address] CARCINOEMBRYONIC ANTIGEN Collected: 09/19/2017 Status: F Source: [place] 5:10 AM [facility] REPOSITORY TYPE CODE TESTS RESULT OUT OF RANGE REFERENCE UNITS LAB L3100.2300 0.0-4.7 ng/mL Normal CEA 2.5 Result Comment: Marisa ECLIA methodology Nonsmokers <3.9 Smokers <5.6 Performed at: - [facility] [id number] [employer] Driver: Dick Lamas PhD, Phone: [phone] Performed By: #### L3100.2300 #### [facility] (refer to report for specific site) refer to report for address and phone number CHEST PA AND LATERAL Observed: 09/19/2017 Status: F Source: [place] 4:58 AM [facility] REPOSITORY [facility] Imaging Services [address] [place] [address] Chest PA and Lateral MR#: [id number] Acct: [id number] Name: BARI ROMERO Rep #: [id number] : 1955 M 61 From: Herbert Carroll MD PCP: Caesar Chavez DO Status: ADM IN Study: Chest PA and Lateral Date of Exam: 09/19/17 Exam# [id number] Ordering Dr: John Marcum DO STUDY: X-RAY CHEST REASON FOR EXAM: Male, 61 years old. Chronic renal failure. Shortness of breath. TECHNIQUE: AP and lateral views of the chest. COMPARISON: Comparison is made with prior study dated May 15, 2017. FINDINGS: Decreased bronchovascular markings in the right upper lobe suggestive of emphysematous change. Stable mild increased markings at the lung bases suggestive of scarring. There is no demonstrated pleural abnormality. Normal size heart. Normal mediastinum and elizabeth. There is prominence of the pulmonary hilar arteries without peripheral pulmonary vascular congestion, suggesting pulmonary hypertension. Normal visualized aortic arch and descending thoracic aorta. Normal visualized thoracic spine. Healed right rib fractures. There is no demonstrated abnormality of the visualized soft tissue structures of the upper abdomen. RAD/Chest PA and Lateral IMPRESSION: Stable examination. Electronically Signed: Herbert Carroll MD at 9:24 EDT Tel [phone], Service support , CC: Alena Chavez DO Stem Lead Former: Signed ABD INC DECUB Observed: 09/18/2017 Status: F Source: [place] AND/OR ERECT 11:16 PM [facility] REPOSITORY [facility] Imaging Services [address] [place] [address] Abd Inc Decub and/or Erect MR#: [id number] Acct: [id number] Name: BARI ROMERO Rep #: [id number] : 1955 61 From: Hugo Pizarro MD PCP: Caesar Chavez DO Status: ADM IN Study: Abd Inc Decub and/or Erect Date of Exam: 09/18/17 Exam# [id number] Ordering Dr: John Marcum DO STUDY: X-RAY - ABDOMEN/PELVIS REASON FOR EXAM: Male, 61 years old. LLQ pain TECHNIQUE: Two AP supine views of the abdomen and pelvis. COMPARISON: None. FINDINGS: Small right pleural effusion. There is an unremarkable bowel gas pattern. There is no demonstrated free abdominal air. The visualized liver, spleen and kidneys are grossly normal in size and morphology. Normal soft tissue structures. Normal visualized osseous structures. RAD/Abd Inc Decub and/or Erect IMPRESSION: Normal x-ray examination of the abdomen and pelvis. Electronically Signed: Hugo Pizarro MD at 0:14 EDT Tel , Service support , CC: Alena Chavez DO Stem Lead Former: Signed BEDSIDE GLUCOSE Collected: 09/18/2017 Status: F Source: [place] 9:48 PM [facility] REPOSITORY TYPE CODE TESTS RESULT OUT OF REFERENCE UNITS RANGE LAB L501.080 70-110 mg/dL High BEDSIDE GLU 134 Result Comment: MANAGEMENT OF PATIENT CARE PER NURSING PROTOCOL Performed By: #### L501.080 #### [facility] Point of Care [address] [place] [address] OPERATIVE REPORT Observed: 09/18/2017 Status: F Source: MAL[place] 8:46 PM [facility] REPOSITORY [facility] Medical Records Department [address] [place] [address] Operative Report 09/18/17 1756 MR#: [id number] Acct: [id number] Name: BARI ROMERO Rep #: [id number] : 1955 61 From: Chaparro Ku MD PCP: Caesar Chavez DO Status: ADM IN Y Location: [place] [address] Report of Operation Date of Procedure: 09/18/17 Pre-Operative Diagnosis: ANEMIA, HEME POSITIVE STOOLS Post-Operative Diagnosis: MILD GASTRITIS, HEPATIC COLON CANCER, POLYPOSIS TO SIGMOID Surgery/Procedure Performed:: EGD WITH BIOPSY, COLONSOCOPY WITH BIOPSY AND POLYPECTOMY - 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 Sign in was performed verifying patient, site, planned procedure, critical nursing information, the patient was monitored with cardiac, pulse oximetric, and blood pressure monitoring devices. Monitored anesthetic care was provided for sedation. Following IV sedation and after the oropharynx was sprayed with Cetacaine spray, a video gastroscope was inserted in the oropharynx and advanced down the esophagus without difficulty. The scope was advanced through the stomach, through the pylorus through the duodenum to the proximal jejunum. the jejunum and duodenum appeared unremarkable. There was mild gastritis. Biopsies were obtained for H. pylori and pathology. The remainder of the stomach was unremarkable area as the scope was retroflexed. The GE junction appeared unremarkable. The scope was withdrawn, the esophagus appeared unremarkable The patient was positioned for colonoscopy. A digital rectal exam was performed which revealed no palpable abnormalities The video colonoscope was inserted and advanced to the cecum as verified by the ileocecal valve, cecal base anatomic features and palpation. there were multiple polyps in the cecum and ascending colon area. As the scope was withdrawn to the level of the hepatic flexure, there was a fungating mass seen, felt to be on the inner curvature of the right colon/hepatic flexure. This was approximately two thirds circumference. The area was friable and slowly losing. Multiple biopsies were taken from the tumor. A clip was then placed to demonstrate the location of this abnormality. The site was then tattooed in 3 quadrants with dodie ink. as the scope was further withdrawn, polyps persisted throughout the remainder of the transverse colon, splenic flexure, descending colon, rectosigmoid area. These approach being too numerous to count. A clip was placed and was felt to be the descending colon approximately 60 cm. Above the location of polypectomy was performed. This polyp was sent separately. Below this location approximately 35 cm, 2 polyps were removed. Again, there were multiple polyps located throughout, usually 1-2 polyps per colonic fold. the patient had a few diverticula in the sigmoid area. Given the large number of polyps and the fact that the patient's Plavix had just been held for 2 days, I just performed sampling to verify many polyps. As the scope was further withdrawn. There seemed to be relative sparing in the low rectum area. The scope was retroflexed without abnormalities. The patient tolerated the procedure well and was brought to recovery in stable condition 09/18/172045 <Electronically signed by Chaparro Ku MD> Date Chaparro Ku MD CC: Caesar Chavez DO; Daysi Magana DO; Chaparro Ku MD Signed ABDOMEN SINGLE VIEW Observed: 09/18/2017 Status: F Source: [place] 5:57 PM [facility] REPOSITORY [facility] Imaging Services [address] [place] [address] Abdomen Single View MR#: [id number] Acct: [id number] Name: BARI ROMERO Rep #: [id number] : 1955 M 61 From: Zaire Hunter MD PCP: Caesar Chavez DO Status: DIS IN Study: Abdomen Single View Date of Exam: 09/18/17 Exam# [id number] Ordering Dr: Chaparro Ku MD STUDY: X-RAY - ABDOMEN/PELVIS REASON FOR EXAM: Male, 61 years old. Abdominal distention, suspecting colon cancer after having a colonoscopy TECHNIQUE: Single AP view of the abdomen / pelvis. COMPARISON: None. FINDINGS: Normal visualized lung bases. There is an unremarkable bowel gas pattern. There is no demonstrated free abdominal air. The visualized liver, spleen and kidneys are grossly normal in size and morphology. Normal soft tissue structures. Normal visualized osseous structures. RAD/Abdomen Single View IMPRESSION: Normal x-ray examination of the abdomen and pelvis. Electronically Signed: Zaire Hunter MD at 19:39 EDT , Service support , CC: Caesar Chavez DO; Chaparro Ku MD Stem Lead Former: Signed ABDOMEN/PELVIS WITHOUT Observed: 09/18/2017 Status: F Source: [place] CONT 5:57 PM [facility] REPOSITORY [facility] Imaging Services [address] [place] [address] Abdomen/Pelvis without Cont MR#: [id number] Acct: [id number] Name: BARI ROMERO Rep #: [id number] : 1955 61 From: Zaire Hunter MD PCP: Caesar Chavez DO Status: ADM IN Study: Abdomen/Pelvis without Cont Date of Exam: 09/18/17 Exam# [id number] Ordering Dr: Chaparro Ku MD STUDY: CT ABDOMEN AND PELVIS WITHOUT CONTRAST REASON FOR EXAM: Male, 61 years old. RENAL FAILURE COLON CANCER, POLYPOSIS. RIGHT LUNG SURG RADIATION DOSAGE (If Supplied By Facility): CTDIvol = ( 19.62 ) mGy, DLP = ( 1108.11 ) mGycm TECHNIQUE: Transaxial images were obtained from the dome of the diaphragm to the symphysis pubis without oral contrast, and without intravenous contrast. Sagittal and coronal images were reconstructed. COMPARISON: None. FINDINGS: There are atherosclerotic calcifications of visualized coronary arteries. Near the aortic cross there are small subcentimeter lymph nodes. The visualized portions of the heart are within normal limits. Normal liver. Normal gallbladder and extrahepatic biliary system. Normal spleen. Normal pancreas. Normal bilateral adrenal glands. Normal right kidney. Normal left kidney. Normal visualized stomach. Normal small intestine. 17mm linear foreign body in the ascending colon. 11mm linear foreign body in the distal transverse colon. There is non-visualization of the appendix. Inflammation overlying the diverticulum of the distal ascending colon and sigmoid colon. This suggests multifocal diverticulitis. There are calcifications of the abdominal aorta and vascular structures. This is consistent for atherosclerotic disease. There is no abdominal aortic aneurysm. Normal inferior vena cava. Subcentimeter mesenteric lymph nodes. Normal urinary bladder. There are prostatic calcifications. Normal abdominal wall. There are degenerative changes of the osseous structures. CT/Abdomen/Pelvis without Cont IMPRESSION: Inflammation overlying the diverticulum of the distal ascending colon and sigmoid colon. This suggests multifocal diverticulitis. 17mm linear foreign body in the ascending colon. 11mm linear foreign body in the distal transverse colon. Other findings as above. Electronically Signed: Zaire Hunter MD at 19:26 EDT , Service support , CC: Caesar Chavez DO; Chaparro Ku MD Stem Lead Former: Signed COLON BIOPSY (CHOOSE Observed: 09/18/2017 Status: F Source: MALIK SITE) 5:20 PM [facility] REPOSITORY Patient: BARI ROMERO : 1955 (61/M) Acct Num: [id number] Phys: Kelechi Adler MD Unit Num: [id number] Loc: [facility] [id number] Specimen: [id number] Received: 09/18/17 - 3423 Spec Type: COLON BX TISSUES TISSUES: A. Gastric mucous membrane B. COLON BIOPSY C. COLON BIOPSY D. COLON BIOPSY COMMENT A. The results of immunohistochemistry for Helicobacter pylori will be reported separately ([id number]). B. The results of Immunohistochemistry ([id number]) for mismatch repair of protein will be reported separately. Case has been reviewed in consultation with Dr. Fairchild who concurs with the above diagnosis. IDC:AM GROSS DESCRIPTION A - Received in fixative is one container labeled with the patient's name and designated antral biopsy. The specimen consists of two irregular fragments of light baptiste soft tissue that in aggregate measure 0.5 x 0.5 x 0.2 cm. The specimen is totally submitted in one cassette. B - Received in fixative is one container labeled with the patient's name and designated hepatic flexure. The specimen consists of two irregular fragments of light baptiste soft tissue that in aggregate measure 0.7 x 0.5 x 0.2 cm. The specimen is totally submitted in one cassette. C - Received in fixative is one container labeled with the patient's name and designated polyp proximal. The specimen consists of two irregular fragments of light baptiste soft tissue that in aggregate measure 0.6 x 0.6 x 0.2 cm. The specimen is totally submitted in one cassette. D - Received in fixative is one container labeled with the patient's name and designated polyp at 30 cm. The specimen consists of two irregular fragments of light baptiste soft tissue that in aggregate measure 1 x 0.7 x 0.2 cm. The specimen is totally submitted in one cassette. / AM:nicanor 09/19/17 TC:0 CPT: 89192 x4 HEADER OPERATION: Colonoscopy / EGD PRE-OP DIAGNOSIS: Screen TISSUE SUBMITTED: A Antral biopsy (EGD), B Hepatic flexure biopsy colon CA (colonoscopy), C Polyp proximal to clip, D Polyp at 30 cm MICROSCOPIC DESCRIPTION Slides are reviewed. A. The specimen shows fragments of gastric mucosa with chronic inflammatory cell infiltrates in the lamina propria consisting of lymphocytes and plasma cells, consistent with mild chronic gastritis. MICROSCOPIC DIAGNOSIS A. Antral biopsy: Mild gastritis. B. Hepatic flexure, biopsy: Invasive adenocarcinoma. Hyperplastic polyp. See comment. C. Polyp proximal to clip, biopsy: Fragments of tubular adenoma. D. Polyp at 30 cm, biopsy: Hyperplastic polyp. SJ:nicanor 09/22/17 Signed Drake Barrett 09/22/17 <signature on file> Performed By: #### PCOLBX #### [facility] [address] [place], [address] BEDSIDE GLUCOSE Collected: 09/18/2017 Status: F Source: [place] 4:09 PM [facility] REPOSITORY TYPE CODE TESTS RESULT OUT OF REFERENCE UNITS RANGE LAB L501.080 70-110 mg/dL High BEDSIDE GLU 129 Result Comment: MANAGEMENT OF PATIENT CARE PER NURSING PROTOCOL Performed By: #### L501.080 #### [facility] Point of Care [address] [place] [address] 12 LEAD ELECTROCARDIOGRAM Observed: 09/18/2017 Status: F Source: [place] 2:52 PM [facility] REPOSITORY [facility] Cardiovascular Services [address] [place] [address] 12 Lead EKG 09/15/17 1313 MR#: [id number] Acct: [id number] Name: BARI ROMERO Rep #: [id number] : 1955 61 From: Danis Loza MD Attending Dr: Angeles Howe MD Status: ADM IN Ordering Dr: Vanessa Genao MD Date: 09/15/17 Location: [facility] Sex: M C Admitted: 09/15/17 Test Reason : DYSRHYTHMIA Blood Pressure : / mmHG Vent. Rate : 096 BPM Atrial Rate : 096 BPM P-R Int : 196 ms QRS Dur : 078 ms QT Int : 304 ms P-R-T Axes : 034 087 049 degrees QTc Int : 384 ms Normal sinus rhythm Low voltage QRS Borderline ECG Confirmed by DANIS LOZA MD ([id number]), advertising editor KEVIN MORRELL ([id number]) on 09/18/2017 2:52:01 PM Referred By: CONNER Confirmed By:DANIS LOZA MD 09/18/17 1453 Date Danis Loza MD CC: Caesar Chavez DO; Vanessa Genao MD; Angeles Howe MD Signed BEDSIDE GLUCOSE Collected: 09/18/2017 Status: F Source: [place] 11:02 AM [facility] REPOSITORY TYPE CODE TESTS RESULT OUT OF REFERENCE UNITS RANGE LAB L501.080 70-110 mg/dL High BEDSIDE GLU 163 Result Comment: MANAGEMENT OF PATIENT CARE PER NURSING PROTOCOL Performed By: #### L501.080 #### [facility] Point of Care [address] [place] [address] CBC W/DIFF, AUTOMATED Collected: 09/18/2017 Status: F Source: [place] 7:40 AM [facility] REPOSITORY TYPE CODE TESTS RESULT OUT OF RANGE REFERENCE UNITS LAB L100.1000 4.4-11.0 K/mm3 Normal WBC 7.4 LAB L100.1200 4.6-6.2 M/mm3 Low RBC 3.67 LAB L100.1300 13.0-16.5 g/dl Low HGB 10.0 LAB L100.1400 40-54 % Low HCT 31.1 LAB L100.1500 80-94 fL Normal MCV 84.7 LAB L100.1600 27.0-32.0 pg Normal MCH 27.2 LAB L100.1700 32-36 g/gl Normal MCHC 32.2 LAB L100.1810 11.6-14.6 % High RDW CV 14.9 LAB L100.1820 35.1-43.9 fl High RDW SD 44.3 LAB L100.1900 150-450 K/mm3 Normal PLT 217 LAB L100.2000 6.2-12.0 fl Normal MPV 11.1 LAB L100.2100 47-70 % Normal NEUT% 62.3 LAB L100.2200 19-41 % Low LY% 17.9 LAB L100.2300 0-10 % Normal MONO% 9.2 LAB L100.2400 0-5 % High EO% 9.8 LAB L100.2500 0-1 % Normal BASO% 0.5 LAB L100.2550 0.0-0.9 % Normal IM GRAN % 0.300 Result Comment: IG% - Immature Granulocytes (promyelocytes, myelocytes and metamyelocytes) > 1% indicates that a LEFT SHIFT is Present. LAB L100.2620 2.0-7.7 X10 3/uL Normal Absolute Neut 4.6 LAB L100.2720 0.83-4.51 X10 3/ul Normal Absolute Lymph 1.33 Performed By: #### L100.0100 #### [facility] [address] [place], [place], [address] BASIC METABOLIC Collected: 09/18/2017 Status: F Source: [place] PROFILE (BMP) 7:40 AM [facility] REPOSITORY TYPE CODE TESTS RESULT OUT OF RANGE REFERENCE UNITS LAB L501.0100 74-106 mg/dL High GLU 132 Result Comment: Fasting Glucose result greater than or equal to 126 mg/dL suggests DIABETES MELLITUS per A.D.A. criteria. Please note revised GLUCOSE reference range effective 2017. LAB L501.1000 7-18 mg/dL High BUN 45 LAB L501.1100 0.70-1.30 mg/dL High CREAT,SERUM 2.44 Result Comment: The validity of the calculated GFR AND GFRAA in patients over 70 years has not been determined. Clinical correlation is essential. LAB L501.1110 >60 mL/min Low EST GFR 29 Result Comment: Non- GFR Calc LAB L501.1115 >60 mL/min Low EST GFR - AA 35 Result Comment: GFR Calc LAB L501.1255 ml/min Normal Estimated CRCL 35.47 LAB L501.1300 10-20 RATIO Normal BUN/CRE 18.4 LAB L501.2200 8.5-10 mg/dL Normal .1 CA 8.6 LAB L501.5300 136-14 mmol/L Normal 5 NA 143 LAB L501.5600 3.5-5. mmol/L Normal 1 K 4.9 LAB L501.5900 98-107 mmol/L High CL 115 LAB L501.6100 21.0-3 mmol/L Low 2.0 CO2 20.0 LAB L501.6200 5-15 Normal GAP 8 Performed By: #### L500.2500 #### [facility] [address] [place], [address] BEDSIDE GLUCOSE Collected: 09/18/2017 Status: F Source: [place] 7:14 AM [facility] REPOSITORY TYPE CODE TESTS RESULT OUT OF REFERENCE UNITS RANGE LAB L501.080 70-110 mg/dL High BEDSIDE GLU 131 Result Comment: MANAGEMENT OF PATIENT CARE PER NURSING PROTOCOL Performed By: #### L501.080 #### [facility] Point of Care [address] [place] [address] CNOP Observed: 09/18/2017 Status: COMPLETED Source: [place] 12:00 AM [facility] REPOSITORY Operative Note (Enc) (GENSWS) Progress Notes: Chaparro Ku MD 09/21/2017 9:54 AM Signed OPERATIVE NOTATION FOR [facility] SURGICAL PROCEDURE. September 18, 2017 Bari Romero 1955 [id number] male PROCEDURE: COLONOSCOPY WITH BIOPSY - 67016-214, COLONOSCOPY WITH INJECTION/MARKING - 97804-13? and COLONOSCOPY WITH SNARE POLYPECTOMY- 38933-240 SURGEON: Bhaskar Ku M.D. FACS STAMPING OPERATOR: None DEPT: WQ PROVIDER: [id number] Ku MD POS: [id number] DIAGNOSIS: (C18.3) Malignant neoplasm of hepatic flexure (HCC) (primary encounter diagnosis) (K63.5) Polyposis of colon ASA CLASS: 3 - Severe FINDINGS: COMPLICATIONS: None PMHx - No past medical history on file. COMORBIDITIES - Smoking/Tobacco, Obesity, Chronic Pulmonary, COPD, CHF, CAD, Hx Cardiac Surgery and Cr>2mg Post Op Occurrences - None Wound Classification - Clean Contaminated Operative note dictated in the [facility] dictation system. Chaparro Ku MD Encounter Status:Closed by CHAPARRO KU MD on 09/21/17 IMMUNOHISTOCHEMISTRY Observed: 09/18/2017 Status: F Source: [place] 12:00 AM [facility] REPOSITORY Patient: BARI ROMERO : 1955 (61/M) Acct Num: [id number] Phys: Kelechi Adler MD Unit Num: [id number] Loc: [facility] [id number] Specimen: [id number] Received: 09/22/17 - 1251 Spec Type: IMMUNO TISSUES TISSUES: A. Stomach, NOS B. COLON BIOPSY - hepatic flexure SPECIMEN INFORMATION: Tissue Source: A Antral biopsy, B Hepatic flexure biopsy Clinical Info: Screen Specimen Number: [id number] A AND B CPT code: 60423 x2, 20394 x6 METHODOLOGY: Deparaffinized sections of prefer/formalin-fixed tissue or PAP/DQ stained slides are incubated with monoclonal/polyclonal antibodies/oligonucleotide probes. Localization is made via biotin free immunoperoxidase method. Appropriate controls are performed and reacted as expected. Results on target cell population are indicated in the following table: RESULTS: ANTIBODY / CLONE RESULT Block A H Pylori (polyclonal) negative Block B COLON CANCER PROFILE (Prognostic Markers) Ki-67 (30-9) positive P53 (DO-7) negative MSH2 (25D12) positive, weak MSH6 (44) positive MLH-1 (M1) positive PMS2 (KNZ4891) positive TRIVEDI-2 (SP21) positive These tests were developed and their performance characteristics determined by [facility]. They may not have been cleared or approved by the U.S. Food and Drug Administration. The FDA has determined that such clearance or approval is not necessary. INTERPRETATION: A. Antral biopsy: Negative for Helicobacter pylori organisms. B. Hepatic flexure, biopsy: Invasive adenocarcinoma. Result of Microsatellite Instability Study: Negative (no loss of mismatch protein; no microsatellite instability detected). SJ:nicanor 09/23/17 PHYSICIAN AND INSTITUTION [address] [address] Signed Drake Barrett 09/23/17 <signature on file> Performed By: #### PIMM #### [facility] [address] [place] [address]. [place], [address] BEDSIDE GLUCOSE Collected: 09/17/2017 Status: F Source: [place] 9:57 PM [facility] REPOSITORY TYPE CODE TESTS RESULT OUT OF REFERENCE UNITS RANGE LAB L501.080 70-110 mg/dL High BEDSIDE GLU 135 Result Comment: MANAGEMENT OF PATIENT CARE PER NURSING PROTOCOL Performed By: #### L501.080 #### [facility] Point of Care [address] [place] [place] [address] BEDSIDE GLUCOSE Collected: 09/17/2017 Status: F Source: [place] 4:56 PM [facility] REPOSITORY TYPE CODE TESTS RESULT OUT OF REFERENCE UNITS RANGE LAB L501.080 70-110 mg/dL High BEDSIDE GLU 192 Result Comment: MANAGEMENT OF PATIENT CARE PER NURSING PROTOCOL Performed By: #### L501.080 #### [facility] Point of Care [address] [place] [address] BEDSIDE GLUCOSE Collected: 09/17/2017 Status: F Source: [place] 11:29 AM [facility] REPOSITORY TYPE CODE TESTS RESULT OUT OF REFERENCE UNITS RANGE LAB L501.080 70-110 mg/dL High BEDSIDE GLU 232 Result Comment: MANAGEMENT OF PATIENT CARE PER NURSING PROTOCOL Performed By: #### L501.080 #### [facility] Point of Care [address] [place] [place] [address] CONSULTATION Observed: 09/17/2017 Status: F Source: [place] 9:16 AM [facility] REPOSITORY [facility] Medical Records Department [address] [place] [address] Consultation 09/16/17 0928 MR#: [id number] Acct: [id number] Name: BARI ROMERO Rep #: [id number] : 1955 61 From: Daysi Magana DO PCP: Caesar Chavez DO Status: ADM IN Y Location: [place] [id number] Consultation - Renal 09/16/17 PCP/ Referring MD: Requesting physician: [] Primary care physician: Caesar Chavez Reason for Consultation:: NICK on CKD, hyperkalemia - History of Present Illness History of Present Illness: The patient is a 61 year old M known to me with CKD Stage 4 due to diabetes, nephrosclerosis. Baseline creatinine 2.5 in June 2017, 24h urine CRCL 30cc/min was instructed to go to ER for hyperkalemia K 6.8 renal failure on routine lab work. Pt denied chest pain, swelling, shortness of breath. He has been experiencing diarrhea 4-5x/day past 2-3 weeks. Noticed dark stools thought due to iron therapy weekly. Hgb low at 7.4g with guaiac positive stools. High Potassium treated medically down to 5.5. Creatinine improved from 4.0 on admit to 3.6 with iv fluids. Lisinopril was discontinued. - Allergies Allergies: Allergies No Known Allergies Allergy (Verified 08/12/17 10:31) - Current Medications Current Medications: Current Medications Dextrose/Sodium Chloride () 1,000 mls @ 75 mls/hr IV .[id number] [facility] Insulin Human Lispro (Humalog Kwikpen (Bkc)) 0 unit SC ACHS ZACH PRN Reason: Protocol Last Admin: 09/16/17 07:44 Dose: Not Given Magnesium Hydroxide (Milk Of Magnesia) 30 ml PO DAILY PRN PRN Reason: Constipation Oxycodone HCl (Oxyir) 5 mg PO Q12H PRN PRN PRN Reason: SEVERE PAIN (6-10/10) Last Admin: 09/15/17 21:34 Dose: 5 mg Sodium Bicarbonate (Sodium Bicarbonate) 650 mg PO TID ZACH Last Admin: 09/16/17 05:31 Dose: 650 mg Sodium Chloride () 5 - 30 ml IV UD PRN PRN Reason: SALINE FLUSH - Past Medical History Past Medical History (Chronic Problems): Chronic Problems (Last Updated 09/16/17 @ 10:30 by Kelechi Adler MD) Heme + stool (Chronic) Anemia of chronic renal failure (Chronic) H/O pneumonectomy (Chronic) Right due to benign tumor Peripheral vascular disease (Chronic) COPD (chronic obstructive pulmonary disease) (Chronic) Radiculopathy affecting upper extremity (Chronic) Iron deficiency anemia (Chronic) Increased PTH level (Chronic) Low vitamin D level (Chronic) Paroxysmal atrial fibrillation (Chronic) Chronic renal failure, stage 4 (severe) (Chronic) Nocturnal hypoxia (Chronic) Noncompliance with CPAP treatment (Chronic) LADARIUS (obstructive sleep apnea) (Chronic) Gout (Chronic) History of tobacco abuse (Chronic) quit in April 2017 Hx of CABG (Chronic) x3 2003 Coronary artery disease (Chronic) has had 3 stents.....the last stent he thinks in 2008 Hypertension (Chronic) Diabetes mellitus type 2 in obese (Chronic) Non-STEMI (non-ST elevated myocardial infarction) (Chronic) - Past Surgical History Surgical History: angioplasty - stent x2 2003, - - rt lung thoracotomy, lobectomy 2009 for benign tumor - Social History Smoking Status: Former smoker Alcohol: Rare Drugs: None - Family History Maternal Family History: Family History (Last Reviewed 08/12/17 @ 10:27 by Yaquelin Simpson) Father Leukemia Mother COPD (chronic obstructive pulmonary disease) History Items: COPD Paternal Family History: Family History (Last Reviewed 08/12/17 @ 10:27 by Yaquelin Simpson) Father Leukemia Mother COPD (chronic obstructive pulmonary disease) History Items: Cancer - leukemia, Hypertension Review of Systems Constitutional: Denies: Anorexia, Chills, Fever, Weakness HEENT: Denies: Head Aches Respiratory: Denies: Cough, Shortness of Breath Gastrointestinal: Reports: Diarrhea - 4-5x/day past 2-3 weeks, - - dakr stools on iron weekly. Denies: Abdominal Pain, Nausea, Melena, Vomiting Genitourinary: Reports: - - no change in output. Denies: Dysuria, Retention Musculoskeletal: Denies: Back Pain Skin: Denies: Rash Neurological: Denies: Balance problems Endocrine: Denies: Polydipsia, Polyuria Hematologic/ Lymphatic: Reports: Anemia Patient Problems: Active and Suspected Problems (Last Updated 09/16/17 @ 10:30 by Kelechi Adler MD) Hyperkalemia (Acute) - Physical Exam General: Alert, Oriented x3, Cooperative, No apparent distress Oral: Dry Mucosa Neck: Supple Lungs: Clear to auscultation Cardiovascular: Regular rate Abdomen: Bowel Sounds Present, Soft, Non Tender, Non-Distended Extremities: No edema Skin: No rashes Musculoskeletal: No Muscle Wasting Neurological: Cranial nerves II-XII grossly intact Psych/Mental Status: Normal Affect, Appropriate, Alert and oriented to time, place, person, mood and affect Vital Signs Temp Pulse Resp BP Pulse Ox 98.1 F 88 16 105/50 L 95 09/16/17 02:47 09/16/17 06:56 09/16/17 02:47 09/16/17 02:47 09/16/17 08:57 Oxygen Delivery Method Room Air Weight: 106.7 kg Body Mass Index (BMI) 31.0 Intake and Output for Last 24 Hours Intake Total 240 / 240 120 / 120 Balance 240 / 240 120 / 120 Laboratory Tests Past 24 Hrs WBC 6.0 RBC 2.91 L Hgb 7.4 L Hct 24.4 L MCV 83.8 MCH 25.4 L MCHC 30.3 L RDW 15.9 H RDW Differential 48.5 H WBC RBC Hgb Hct MCV MCH MCHC RDW RDW Differential WBC RBC Hgb Hct MCV MCH MCHC RDW RDW Differential POC Glucose POC Glucose 125 H 174 H 93 Assessment/Plan All Active Problems (Last Updated 09/16/17 @ 10:30 by Kelechi Adler MD) Hyperkalemia (Acute) Acute renal failure superimposed on stage 4 chronic kidney disease (Acute) Metabolic acidosis (Acute) Benign neoplasm of right lung (Resolved) Acute exacerbation of chronic obstructive pulmonary disease (COPD) (Resolved) Acute respiratory failure with hypoxemia (Resolved) Influenza B (Resolved) Lower GI bleed (Resolved) Severe sepsis (Resolved) Streptococcal pneumonia (Resolved) Urinary retention due to benign prostatic hyperplasia (Resolved) 1. NICK on CKD stage 4 likely due to prerenal event, diarrhea past 2-3 weeks. baseline creatinine 2.6 in June 2017 when last seen in my office. Creatinine increased to 4.0 with hyperkalemia. Agree with discontinuation of ACEI. Nonoliguric on iv fluids. Creatinine improved to 3.59 today. Avoid NSAIDs, nephrotoxins 2. Acute hyperkalemia managed medically. 3. Metabolic acidosis due to renal failure, diarrhea. Replace 4. DM2 on insulin 5. HTN stable 6. Anemia check iron studies, prbc as needed. Guaiac pos stools 7. Diarrhea etiology unclear. Afebrile, dark stools at home 8. CAD s/p CABG, NSTEMI 9. Morbid obesity, LADARIUS 09/17/17 0916 <Electronically signed by Daysi Magana DO> Date Daysi Magana DO Cosigner Signature (if applicable): Date CC: Caesar Chavez DO; Daysi Magana DO; Chaparro Ku MD Signed BEDSIDE GLUCOSE Collected: 09/17/2017 Status: F Source: MALIK 6:45 AM [facility] REPOSITORY TYPE CODE TESTS RESULT OUT OF REFERENCE UNITS RANGE LAB L501.080 70-110 mg/dL High BEDSIDE GLU 127 Result Comment: MANAGEMENT OF PATIENT CARE PER NURSING PROTOCOL Performed By: #### L501.080 #### [facility] Point of Care [address] [place], [place] [address] BASIC METABOLIC Collected: 09/17/2017 Status: F Source: MALIK PROFILE (BMP) 5:00 AM [facility] REPOSITORY TYPE CODE TESTS RESULT OUT OF RANGE REFERENCE UNITS LAB L501.0100 74-106 mg/dL High GLU 119 Result Comment: Fasting Glucose result from 100 to 125 mg/dL suggests IMPAIRED HOMEOSTASIS per A.D.A. criteria. Please note revised GLUCOSE reference range effective 2017. LAB L501.1000 7-18 mg/dL High BUN 65 LAB L501.1100 0.70-1.30 mg/dL High CREAT,SERUM 2.74 Result Comment: The validity of the calculated GFR AND GFRAA in patients over 70 years has not been determined. Clinical correlation is essential. LAB L501.1110 >60 mL/min Low EST GFR 25 Result Comment: Non- GFR Calc LAB L501.1115 >60 mL/min Low EST GFR - AA 30 Result Comment: GFR Calc LAB L501.1255 ml/min Normal Estimated CRCL 31.59 LAB L501.1300 10-20 RATIO High BUN/CRE 23.7 LAB L501.2200 8.5-10 mg/dL Normal .1 CA 8.5 LAB L501.5300 136-14 mmol/L High 5 NA 147 LAB L501.5600 3.5-5. mmol/L Normal 1 K 4.9 LAB L501.5900 98-107 mmol/L High CL 118 LAB L501.6100 21.0-3 mmol/L Low 2.0 CO2 20.0 LAB L501.6200 5-15 Normal GAP 9 Performed By: #### L500.2500 #### [facility] [address] [place], [address] CBC-COMPLETE BLOOD CNT Collected: 09/17/2017 Status: F Source: MALIK NO DIFF 5:00 AM [facility] REPOSITORY TYPE CODE TESTS RESULT OUT OF RANGE REFERENCE UNITS LAB L100.1000 4.4-11.0 K/mm3 Normal WBC 6.9 LAB L100.1200 4.6-6.2 M/mm3 Low RBC 3.54 LAB L100.1300 13.0-16.5 g/dl Low HGB 9.4 LAB L100.1400 40-54 % Low HCT 30.2 LAB L100.1500 80-94 fL Normal MCV 85.3 LAB L100.1600 27.0-32.0 pg Low MCH 26.6 LAB L100.1700 32-36 g/gl Low MCHC 31.1 LAB L100.1810 11.6-14.6 % High RDW CV 14.9 LAB L100.1820 35.1-43.9 fl High RDW SD 44.8 LAB L100.1900 150-450 K/mm3 Normal PLT 206 LAB L100.2000 6.2-12.0 fl Normal MPV 11.7 Performed By: #### L100.0500 #### [facility] [address] [place], [address] BEDSIDE GLUCOSE Collected: 09/16/2017 Status: F Source: MALIK 9:28 PM [facility] REPOSITORY TYPE CODE TESTS RESULT OUT OF REFERENCE UNITS RANGE LAB L501.080 70-110 mg/dL High BEDSIDE GLU 115 Result Comment: MANAGEMENT OF PATIENT CARE PER NURSING PROTOCOL Performed By: #### L501.080 #### [facility] Point of Care [address] [place], [place] [address] CONSULTATION Observed: 09/16/2017 Status: F Source: MALIK 8:27 PM [facility] REPOSITORY [facility] Medical Records Department [address] [place] [address] Consultation 09/16/172020 MR#: [id number] Acct: [id number] Name: BARI ROMERO Rep #: [id number] : [id number] 61 From: Chaparro Ku MD PCP: Caesar Chavez DO Status: ADM IN Y Location: [address] Reason for Consult Date of Consultation: 09/16/17 History of Present Illness: The patient is a 61 year old M with multiple complex medical history including coronary artery disease, status post angioplasty and stent placement, COPD, prior tobacco use and partial pneumonectomy, resulting in severe obstructive and restrictive lung disease, chronic renal insufficiency. 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 The patient was treated acutely for his hyperkalemia and then given Kexaylate. the patient has a known history of iron deficiency anemia. He was started on iron months ago is noted dark stool since that time. He denies abdominal pain. He notes no history of peptic ulcer disease. He denies epigastric pain. He denies nausea or vomiting. He denies hematochezia or hematemesis. His hemoglobin in the ER was noted to be 7.9. His stool was Hemoccult positive. He has not had previous upper or lower endoscopy. Past Medical History Past Medical History (Chronic Problems): Chronic Problems (Last Updated 09/16/17 @ 10:30 by Kelechi Adler MD) Heme + stool (Chronic) Anemia of chronic renal failure (Chronic) H/O pneumonectomy (Chronic) Right due to benign tumor Peripheral vascular disease (Chronic) COPD (chronic obstructive pulmonary disease) (Chronic) Radiculopathy affecting upper extremity (Chronic) Iron deficiency anemia (Chronic) Increased PTH level (Chronic) Low vitamin D level (Chronic) Paroxysmal atrial fibrillation (Chronic) Chronic renal failure, stage 4 (severe) (Chronic) Nocturnal hypoxia (Chronic) Noncompliance with CPAP treatment (Chronic) LADARIUS (obstructive sleep apnea) (Chronic) Gout (Chronic) History of tobacco abuse (Chronic) quit in April 2017 Hx of CABG (Chronic) x3 2003 Coronary artery disease (Chronic) has had 3 stents.....the last stent he thinks in 2008 Hypertension (Chronic) Diabetes mellitus type 2 in obese (Chronic) Non-STEMI (non-ST elevated myocardial infarction) (Chronic) Medical History: Medical History (Last Updated 09/16/17 @ 10:30 by Kelechi Adler MD) Heme + stool (Chronic) R19.5 Acute renal failure superimposed on stage 4 chronic kidney disease (Acute) N17.9, N18.4 Radiculopathy affecting upper extremity (Chronic) M54.10 Iron deficiency anemia (Chronic) D50.9 Increased PTH level (Chronic) E34.9 Metabolic acidosis (Acute) E87.2 Low vitamin D level (Chronic) E55.9 Paroxysmal atrial fibrillation (Chronic) I48.0 Chronic renal failure, stage 4 (severe) (Chronic) N18.4 Nocturnal hypoxia (Chronic) G47.34 Noncompliance with CPAP treatment (Chronic) Z91.14 LADARIUS (obstructive sleep apnea) (Chronic) G47.33 Gout (Chronic) M10.9 History of tobacco abuse (Chronic) Z87.891 quit in April 2017 Coronary artery disease (Chronic) I25.10 has had 3 stents.....the last stent he thinks in 2008 Hypertension (Chronic) I10 Diabetes mellitus type 2 in obese (Chronic) E11.69, E66.9 Non-STEMI (non-ST elevated myocardial infarction) (Chronic) I21.4 Acute exacerbation of chronic obstructive pulmonary disease (COPD) (Resolved) J44.1 Acute respiratory failure with hypoxemia (Resolved) J96.01 Influenza B (Resolved) J10.1 Lower GI bleed (Resolved) K92.2 Severe sepsis (Resolved) A41.9, R65.20 Streptococcal pneumonia (Resolved) J15.4 Urinary retention due to benign prostatic hyperplasia (Resolved) N40.1, R33.8 NSAID long-term use (Inactive) Z79.1 Allergies No Known Allergies Allergy (Verified 08/12/17 10:31) Home Medications: Ambulatory Orders Medication Instructions Recorded Albuterol Inhaler [Ventolin Hfa] 1 - 2 puff INHALATION Q6H PRN PRN 05/14/17 Aspirin 81 mg PO DAILY 05/14/17 Surgical History: Surgical History (Last Reviewed 08/12/17 @ 10:27 by Yaquelin Simpson) Hx of CABG (Chronic) Z95.1 x3 2004 S/P removal of lung Z90.2 3/4 of right lung was removed by Dr. Todd in [facility] 11/2009 Surgical History: angioplasty - stent x2 2003, - - rt lung thoracotomy, lobectomy 2010 for benign tumor Lives: Spouse/ Significant Other Smoking Status: Former smoker Tobacco Use: Non-smoker Alcohol: Rare Drugs: None - *Family History Maternal Family History: Family History (Last Reviewed 08/12/17 @ 10:27 by Yaquelin Simpson) Father Leukemia Mother COPD (chronic obstructive pulmonary disease) History Items: COPD Paternal Family History: Family History (Last Reviewed 08/12/17 @ 10:27 by Yaquelin Simpson) Father Leukemia Mother COPD (chronic obstructive pulmonary disease) History Items: Cancer - leukemia, Hypertension Review of Systems Constitutional: Denies: Chills, Fever, Weight Change HEENT: Denies: Head Aches, Sinus Congestion, Sinus Drainage Cardiovascular: Denies: Chest Pain, Palpitations Respiratory: Denies: Cough, Shortness of breath at rest, Sputum production Gastrointestinal: Reports: Diarrhea. Denies: Abdominal Pain, Nausea, Vomiting Genitourinary: Denies: Dysuria Musculoskeletal: Denies: Joint Pain, Joint Tenderness Skin: Denies: Rash, Wounds Neurological: Reports: - - notes left-sided tingling secondary to complications from an epidural anesthetic procedure. Denies: Focal weakness, Numbness, Tingling Psychiatric: Denies: Anxiety, Depression, Homicidal Ideations, Suicidal Ideations Hematologic/ Lymphatic: Denies: Easy Bruising, Easy Bleeding Patient Problems: Active and Suspected Problems (Last Updated 09/16/17 @ 10:30 by Kelechi Adler MD) Hyperkalemia (Acute) - Physical Exam General: Alert, Oriented x3, Cooperative Lungs: Diminished Cardiovascular: Regular rate, Regular Rhythm Abdomen: Bowel Sounds Present, Soft, Non Tender Vital Signs Temp Pulse Resp BP Pulse Ox 98.8 F 104 H 20 H 139/85 H 97 09/16/17 18:25 09/16/17 18:42 09/16/17 18:25 09/16/17 18:25 09/16/17 18:25 Oxygen Delivery Method Room Air Weight: 106.7 kg Body Mass Index (BMI) 31.0 Intake and Output for Last 24 Hours Intake Total 240 / 240 4673 / 4673 Output Total 1200 / 1200 Balance 240 / 240 3473 / 3473 Laboratory Tests Past 24 Hrs POC Glucose POC Glucose 136 H 173 H 125 H POC Glucose 174 H Assessment/Plan All Active Problems (Last Updated 09/16/17 @ 10:30 by Kelechi Adler MD) Hyperkalemia (Acute) Acute renal failure superimposed on stage 4 chronic kidney disease (Acute) Metabolic acidosis (Acute) Benign neoplasm of right lung (Resolved) Acute exacerbation of chronic obstructive pulmonary disease (COPD) (Resolved) Acute respiratory failure with hypoxemia (Resolved) Influenza B (Resolved) Lower GI bleed (Resolved) Severe sepsis (Resolved) Streptococcal pneumonia (Resolved) Urinary retention due to benign prostatic hyperplasia (Resolved) chronic anemia-heme positive stools I plan to perform upper and lower endoscopy. Given the patient's complex medical history and cardiac and respiratory issues, I would plan for bowel prep tomorrow and endoscopy with anesthesia providing monitored anesthetic care on morning. Patient was seen, the risks, benefits, complications, and possible alternatives and consents to the above procedure. He is currently received 2 units packed red cell transfusion. We'll follow repeat hemoglobin. 09/16/172026 <Electronically signed by Chaparro Ku MD> Date Chaparro Ku MD Cosigner Signature (if applicable): Date CC: Caesar Chavez DO; Daysi Magana DO; Chaparro Ku MD Signed HH, HEMOGLOBIN AND Collected: 09/16/2017 Status: F Source: [place] HEMATOCRIT 6:57 PM [facility] REPOSITORY TYPE CODE TESTS RESULT OUT OF RANGE REFERENCE UNITS LAB L100.1300 13.0-16.5 g/dl Low HGB 9.7 LAB L100.1400 40-54 % Low HCT 31.9 Performed By: #### L100.0600, L500.2500 #### [facility] [address] [place], [address] BASIC METABOLIC Collected: 09/16/2017 Status: F Source: MALIK PROFILE (BMP) 6:57 PM [facility] REPOSITORY TYPE CODE TESTS RESULT OUT OF RANGE REFERENCE UNITS LAB L501.0100 74-106 mg/dL High GLU 134 Result Comment: Fasting Glucose result greater than or equal to 126 mg/dL suggests DIABETES MELLITUS per A.D.A. criteria. Please note revised GLUCOSE reference range effective 2017. LAB L501.1000 7-18 mg/dL High BUN 73 LAB L501.1100 0.70-1.30 mg/dL High CREAT,SERUM 2.89 Result Comment: The validity of the calculated GFR AND GFRAA in patients over 70 years has not been determined. Clinical correlation is essential. LAB L501.1110 >60 mL/min Low EST GFR 24 Result Comment: Non- GFR Calc LAB L501.1115 >60 mL/min Low EST GFR - AA 29 Result Comment: GFR Calc LAB L501.1255 ml/min Normal Estimated CRCL 29.95 LAB L501.1300 10-20 RATIO High BUN/CRE 25.3 LAB L501.2200 8.5-10 mg/dL Low .1 CA 8.3 LAB L501.5300 136-14 mmol/L Normal 5 NA 144 LAB L501.5600 3.5-5. mmol/L High 1 K 5.2 LAB L501.5900 98-107 mmol/L High CL 117 LAB L501.6100 21.0-3 mmol/L Low 2.0 CO2 16.0 LAB L501.6200 5-15 Normal GAP 11 Performed By: #### L100.0600, L500.2500 #### [facility] [address] [facility] [place], [place], [address] BEDSIDE GLUCOSE Collected: 09/16/2017 Status: F Source: MALIK 4:15 PM [facility] REPOSITORY TYPE CODE TESTS RESULT OUT OF REFERENCE UNITS RANGE LAB L501.080 70-110 mg/dL High BEDSIDE GLU 136 Result Comment: MANAGEMENT OF PATIENT CARE PER NURSING PROTOCOL Performed By: #### L501.080 #### [facility] Point of Care [address] [facility] [place] [address] BEDSIDE GLUCOSE Collected: 09/16/2017 Status: F Source: MALIK 11:10 AM [facility] REPOSITORY TYPE CODE TESTS RESULT OUT OF REFERENCE UNITS RANGE LAB L501.080 70-110 mg/dL High BEDSIDE GLU 173 Result Comment: MANAGEMENT OF PATIENT CARE PER NURSING PROTOCOL Performed By: #### L501.080 #### [facility] Point of Care [address] [place], [place] [address] BEDSIDE GLUCOSE Collected: 09/16/2017 Status: F Source: [place] 6:47 AM [facility] REPOSITORY TYPE CODE TESTS RESULT OUT OF REFERENCE UNITS RANGE LAB L501.080 70-110 mg/dL High BEDSIDE GLU 125 Result Comment: MANAGEMENT OF PATIENT CARE PER NURSING PROTOCOL Performed By: #### L501.080 #### [facility] Point of Care [address] [place] [address] TYPE AND SCREEN Collected: 09/16/2017 Status: F Source: [place] 6:28 AM [facility] REPOSITORY Order Comment: CMV NEG? N Number of units to transfuse: 2 Is pt's Hgb is </= to 7.0 mg/dl or Hct </= 21%? N Is there an orthostatic change in BP (SBP drop > 10mmHg)? N Is this for PREOP anemia correction prior to anesthesia? N Reason for Ordering Blood: Chronic Is there symptomatic anemia? N Are the blood/blood products to be transfused? Y Is the patient having/had surgery? N CMV NEG?* N Give When? When Ready Irradiated? N Leukodepleted? Y Reason for Type AND Screen/Red Cells: ANEMIA TYPE CODE TESTS RESULT OUT OF RANGE REFERENCE UNITS LAB B10.0800 A Normal BLOOD TYPE GEL POSITIVE LAB B100.4000 Normal Antibody NEGATIVE Screen Performed By: #### B101.7450 #### [facility] [address] [place], [place], [address] RC Collected: 09/16/2017 Status: F Source: [place] 6:28 AM [facility] REPOSITORY TYPE CODE TESTS RESULT OUT OF REFERENCE UNITS RANGE LAB U100.0000 [id number] TRANSFUSED PRODUCT: T AND S with Crossmatch, Red Cells COUNT: 2 Performed By: #### U100.0000 #### [facility] - refer to report for specific site URINE SODIUM Collected: 09/16/2017 Status: F Source: [place] 6:20 AM [facility] REPOSITORY Order Comment: Order Date: 09/15/17 TYPE CODE TESTS RESULT OUT OF RANGE REFERENCE UNITS LAB L501.5500 Not Establ. mmol/L Normal UR NA 80 Performed By: #### L501.5500 #### [facility] [address] [place], [address] CREATININE, URINE Collected: 09/16/2017 Status: F Source: MALIK (RANDOM) 6:20 AM [facility] REPOSITORY Order Comment: Order Date: 09/15/17 TYPE CODE TESTS RESULT OUT OF RANGE REFERENCE UNITS LAB L501.1200 NO RANGE EST. mg/dL Normal UR CREAT 82.10 Performed By: #### L501.1200 #### [facility] [address] [facility] [place], [place], [address] CBC-COMPLETE BLOOD CNT Collected: 09/16/2017 Status: F Source: MALIK NO DIFF 5:00 AM [facility] REPOSITORY TYPE CODE TESTS RESULT OUT OF RANGE REFERENCE UNITS LAB L100.1000 4.4-11.0 K/mm3 Normal WBC 6.0 LAB L100.1200 4.6-6.2 M/mm3 Low RBC 2.91 LAB L100.1300 13.0-16.5 g/dl Low HGB 7.4 LAB L100.1400 40-54 % Low HCT 24.4 LAB L100.1500 80-94 fL Normal MCV 83.8 LAB L100.1600 27.0-32.0 pg Low MCH 25.4 LAB L100.1700 32-36 g/gl Low MCHC 30.3 LAB L100.1810 11.6-14.6 % High RDW CV 15.9 LAB L100.1820 35.1-43.9 fl High RDW SD 48.5 LAB L100.1900 150-450 K/mm3 Normal PLT 229 LAB L100.2000 6.2-12.0 fl Normal MPV 11.1 Performed By: #### L100.0500 #### [facility] [address] [place], [place], [address] COMPREHENSIVE METABOLIC Collected: 09/16/2017 Status: F Source: MALIK PROFIL 5:00 AM [facility] REPOSITORY TYPE CODE TESTS RESULT OUT OF RANGE REFERENCE UNITS LAB L501.0100 74-106 mg/dL High GLU 133 Result Comment: Fasting Glucose result greater than or equal to 126 mg/dL suggests DIABETES MELLITUS per A.D.A. criteria. Please note revised GLUCOSE reference range effective 2017. LAB L501.1000 7-18 mg/dL High BUN 88 LAB L501.1100 0.70-1.30 mg/dL High CREAT,SERUM 3.59 Result Comment: The validity of the calculated GFR AND GFRAA in patients over 70 years has not been determined. Clinical correlation is essential. LAB L501.1110 >60 mL/min Low EST GFR 18 Result Comment: Non- GFR Calc LAB L501.1115 >60 mL/min Low EST GFR - AA 22 Result Comment: GFR Calc LAB L501.1255 ml/min Normal Estimated CRCL 24.11 LAB L501.1300 10-20 RATIO High BUN/CRE 24.5 LAB L501.1500 6.4-8. g/dL Normal 2 T PROT 6.5 LAB L501.1800 3.2-5. g/dL Low 0 ALB 3.1 LAB L501.1950 2.2-4. g/dL Normal 2 GLOB 3.4 LAB L501.2000 0.9-2. RATIO Normal 4 A/G 0.9 LAB L501.2200 8.5-10 mg/dL Low .1 CA 8.3 LAB L501.4100 15-37 U/L Normal AST 24 LAB L501.4305 45-117 U/L Normal ALK P 72 LAB L501.4405 16-61 U/L Normal ALT 33 LAB L501.4600 0.20-1 mg/dL Normal .00 T BILI 0.20 LAB L501.5300 136-14 mmol/L Normal 5 NA 145 LAB L501.5600 3.5-5. mmol/L High 1 K 5.5 LAB L501.5900 98-107 mmol/L High CL 119 LAB L501.6100 21.0-3 mmol/L Low 2.0 CO2 17.0 LAB L501.6200 5-15 Normal GAP 9 Performed By: #### L500.4050, L500.4100, L501.2300, L501.5200 #### [facility] [address] [place], [place], [address] LIPID PROFILE Collected: 09/16/2017 Status: F Source: MALIK 5:00 AM [facility] REPOSITORY TYPE CODE TESTS RESULT OUT OF RANGE REFERENCE UNITS LAB L501.4900 200 mg/dL Normal CHOL 88 Result Comment: <200 mg/dL Desirable 200-240 mg/dL Borderline >240 mg/dL High Risk LAB L501.5000 mg/dL Normal TRIG 141 Result Comment: The drugs N-Acetylcysteine and Metamizole may falsely depress this assay. Serum Triglycerides Reference Interval Normal <150 mg/dL Borderline high 150 - 199 mg/dL High 200 - 499 mg/dL Very High > or = 500 mg/dL LAB L501.6400 mg/dL Low HDL 31 Result Comment: The drugs N-Acetylcysteine and Metamizole may falsely depress this assay. Reference Range HDL <40 mg/dL Low HDL Cholesterol HDL >or= 60 mg/dL High HDL Cholesterol LAB L501.6500 0-130 mg/dL Normal LDL 29 LAB L501.6600 5-40 mg/dL Normal VLDL 28 Performed By: #### L500.4050, L500.4100, L501.2300, L501.5200 #### [facility] [address] [place], [place], [address] PHOSPHORUS Collected: 09/16/2017 Status: F Source: [place] 5:00 AM [facility] REPOSITORY TYPE CODE TESTS RESULT OUT OF RANGE REFERENCE UNITS LAB L501.2300 2.5-4.9 mg/dL High PHOS 5.7 Performed By: #### L500.4050, L500.4100, L501.2300, L501.5200 #### [facility] [address] [place], [address] MAGNESIUM Collected: 09/16/2017 Status: F Source: [place] 5:00 AM [facility] REPOSITORY TYPE CODE TESTS RESULT OUT OF RANGE REFERENCE UNITS LAB L501.5200 1.6-2.6 mg/dL Normal MG 1.7 Performed By: #### L500.4050, L500.4100, L501.2300, L501.5200 #### [facility] [address] [place], [address] BEDSIDE GLUCOSE Collected: 09/15/2017 Status: F Source: MALIK 9:30 PM [facility] REPOSITORY TYPE CODE TESTS RESULT OUT OF REFERENCE UNITS RANGE LAB L501.080 70-110 mg/dL High BEDSIDE GLU 174 Result Comment: MANAGEMENT OF PATIENT CARE PER NURSING PROTOCOL Performed By: #### L501.080 #### [facility] Point of Care [address] [place] [address] BASIC METABOLIC Collected: 09/15/2017 Status: F Source: MALIK PROFILE (BMP) 8:20 PM [facility] REPOSITORY TYPE CODE TESTS RESULT OUT OF RANGE REFERENCE UNITS LAB L501.0100 74-106 mg/dL High GLU 239 Result Comment: Glucose result greater than or equal to 200 mg/dL suggests DIABETES MELLITUS per A.D.A. criteria. Please note revised GLUCOSE reference range effective 2017. LAB L501.1000 7-18 mg/dL High BUN 95 LAB L501.1100 0.70-1.30 mg/dL High CREAT,SERUM 3.73 Result Comment: The validity of the calculated GFR AND GFRAA in patients over 70 years has not been determined. Clinical correlation is essential. LAB L501.1110 >60 mL/min Low EST GFR 18 Result Comment: Non- GFR Calc LAB L501.1115 >60 mL/min Low EST GFR - AA 21 Result Comment: GFR Calc LAB L501.1255 ml/min Normal Estimated CRCL 23.21 LAB L501.1300 10-20 RATIO High BUN/CRE 25.5 LAB L501.2200 8.5-10 mg/dL Normal .1 CA 8.5 LAB L501.5300 136-14 mmol/L Normal 5 NA 144 LAB L501.5600 3.5-5. mmol/L High 1 K alert 6.7 Result Comment: Critical Result(s) Called at: 21:21:11 09/15/2017 by: JEAN WHITLEY to Lkeliud in PCU LAB L501.5900 98-107 mmol/L High CL 119 LAB L501.6100 21.0-32.0 mmol/L Low CO2 16.0 LAB L501.6200 5-15 Normal 9 GAP Performed By: #### L500.2500 #### [facility] [address] [place], [address] EMERGENCY DEPARTMENT Observed: 09/15/2017 Status: F Source: [place] SUMMARY 5:22 PM [facility] REPOSITORY [facility] Medical Records Department [address] [place] [address] Emergency Department Summary 09/15/17 1306 MR#: [id number] Acct: [id number] Name: BARI ROMERO Rep #: [id number] : 1955 61 From: Vanessa Genao MD PCP: Caesar Chavez DO Status: ADM IN - ER Visit Summary Date of Service: 09/15/17 Chief Complaint: Abnormal labs History of Present Illness: The patient is a 61 M who had labs drawn this morning. He states he received a call to return to the ER due to abnormal labs. He is been complaining of diarrhea for the past 3-4 weeks. He has a history of chronic renal failure. He denies any abdominal pain or fever. On review of labs drawn earlier today his creatinine is 4.0. Most recent for comparison is a creatinine of 2.58 in June. His potassium this morning was 6.8. Physical Examination: Pressure is 91/56, temperature 97.6, heart rate 105, respiratory rate 16, pulse ox 96% on room air. Patient sitting upright in bed in no acute distress. He has no complaints currently. Head neck examination is unremarkable. Heart is mildly tachycardic. Lung sounds are clear. Abdomen is soft, obese, nontender. Active bowel sounds are noted throughout. Test Results: EKG is sinus at 96 with mild T-wave peaking. CBC reveals a hemoglobin of 8.2. Chemistry studies confirm a potassium of 7.0, BUN 103, and 3.99. Emergency Department Course and Treatment: Patient is given IV fluids, Kayexalate, insulin, D50, albuterol. After IV fluids heart rate and blood pressure are both significantly improved. Patient has been discussed with the hospitalist will be admitted to the ICU. Treatment Plan: [] Disposition: Admit Impression: 1. Hyperkalemia 2. Acute on chronic renal failure This note was generated with [employer] software. It may contain incorrect words, spelling, and punctuation that were not noted in review of the chart prior to signing ED Disposition - Plan for ED Patient: Chief Complaint: Abn Labs Referrals: Caesar Chavez, [Primary Care Provider] - What to do if you have Problems For any increased pain, shortness of breath, bleeding, nausea or vomiting, chest pain, or any unexpected problems, contact your Primary Care Provider. Call [facility] ([phone]) or report to the closest Emergency Room. Call 911 if necessary. 09/15/17 1722 <Electronically signed by Vanessa Genao MD> Date Vanessa Genao MD Cosigner Signature (If Indicated): Date CC: Caesar Chavez DO VENOUS BLOOD GAS Collected: 09/15/2017 Status: F Source: [place] 4:20 PM [facility] REPOSITORY TYPE CODE TESTS RESULT OUT OF RANGE REFERENCE UNITS LAB L9000.9990 Normal BLD GAS TYPE SHERI LAB L9001.1050 O2 Normal Delivery Dev Room Air LAB L9001.1104 Normal Results To HOSP LAB L9001.1105 Normal Time Given 1620 LAB L9002.1110 7.32-7.42 Low VBGpH - I-STAT 7.24 LAB L9002.1212 41-51 mmHg Low VBG pCO2 - 34.4 ISTA LAB L9002.1310 25-40 mmHg High VBG PO2 I-STAT 46 LAB L9002.2300 22-26 mmol/L Low VBG HCO3 ISTAT 15 LAB L9002.2400 -1.0-3.5 mmol/L Low VBG BE ISTAT -13 LAB L9002.2410 50-70 % High VBG SO2 ISTAT 75 LAB L9002.2415 23-33 mmol/L Low VBG O2 CT 16 ISTAT Performed By: #### L9000.0810 #### [facility] Point of Care [address] [place] [address] BEDSIDE GLUCOSE Collected: 09/15/2017 Status: F Source: [place] 3:27 PM [facility] REPOSITORY TYPE CODE TESTS RESULT OUT OF RANGE REFERENCE UNITS LAB L501.080 70-110 mg/dL Normal BEDSIDE GLU 93 Result Comment: MANAGEMENT OF PATIENT CARE PER NURSING PROTOCOL Performed By: #### L501.080 #### [facility] Point of Care [address] [place] [address] HISTORY AND PHYSICAL Observed: 09/15/2017 Status: F Source: [place] EXAM 3:16 PM [facility] REPOSITORY [facility] Medical Records Department [address] [place] [address] History and Physical 09/15/17 1447 MR#: [id number] Acct: [id number] Name: BARI ROMERO Rep #: [id number] : 1955 61 From: John Marcum DO PCP: Caesar Chavez DO Status: ADM IN Location: [place] [address] Problem List (1) Hyperkalemia Status: Acute (2) Anemia of chronic renal failure Status: Chronic Qualifiers: Chronic kidney disease stage: stage 4 (severe) Qualified Code(s): N18.4 - Chronic kidney disease, stage 4 (severe); D63.1 - Anemia in chronic kidney disease (3) COPD (chronic obstructive pulmonary disease) Status: Chronic Qualifiers: (4) Acute renal failure superimposed on stage 4 chronic kidney disease Status: Acute (5) Radiculopathy affecting upper extremity Status: Chronic (6) NSAID long-term use Status: Inactive (7) Acute exacerbation of chronic obstructive pulmonary disease (COPD) Status: Resolved (8) Heme + stool Status: Resolved (9) Iron deficiency anemia Status: Chronic (10) Urinary retention due to benign prostatic hyperplasia Status: Resolved (11) Increased PTH level Status: Chronic (12) Metabolic acidosis Status: Acute (13) Low vitamin D level Status: Chronic (14) Paroxysmal atrial fibrillation Status: Chronic (15) Chronic renal failure, stage 4 (severe) Status: Chronic (16) Nocturnal hypoxia Status: Chronic (17) Noncompliance with CPAP treatment Status: Chronic (18) LADARIUS (obstructive sleep apnea) Status: Chronic (19) Acute respiratory failure with hypoxemia Status: Resolved (20) Influenza B Status: Resolved (21) Streptococcal pneumonia Status: Resolved (22) Severe sepsis Status: Resolved (23) Gout Status: Chronic (24) History of tobacco abuse Status: Chronic Comment: quit in April 2017 (25) Hx of CABG Status: Chronic Comment: x3 2003 (26) Coronary artery disease Status: Chronic Comment: has had 3 stents.....the last stent he thinks in 2008 (27) Lower GI bleed Status: Resolved (28) Hypertension Status: Chronic (29) Diabetes mellitus type 2 in obese Status: Chronic (30) Non-STEMI (non-ST elevated myocardial infarction) Status: Chronic (31) H/O pneumonectomy Status: Chronic Comment: Right due to benign tumor (32) 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 (33) Peripheral vascular disease Status: Chronic History of Present Illness Date of Admission: 09/15/17 Chief Complaint: sent ot ER by 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 Vital signs at arrival to the emergency room were temp 97.6, heart rate 56, blood pressure 107/69, respiratory rate 17 and he was 96% saturated on nasal cannula. Significant lab included a hemoglobin of 8.2, potassium of 7.0 and a serum bicarb of 13. BUN was increased at 103 and the creatinine was 3.99. His last creatinine on May 182017 was 2.6. EKG showed peaked T waves. He was given 30 g of Kayexalate, 5 units of subcu insulin, 1 amp of serum bicarb and an amp of D50 W in the ER. He denied palpitations, CP, SOB. He admits to having 3-4 BM's daily for about a month. Denies N/V/Fever/chills/dysuria/cough. He had no ectopy on telemetry while I was interviewing him in the ER. He is being admitted to a monitored bed on PCU. Dr. Daysi Magana has been consulted. Past Medical History Past Medical History (Chronic Problems): Chronic Problems (Last Reviewed 08/12/17 @ 10:27 by Yaquelin Simpson) Anemia of chronic renal failure (Chronic) H/O pneumonectomy (Chronic) Right due to benign tumor Peripheral vascular disease (Chronic) COPD (chronic obstructive pulmonary disease) (Chronic) Radiculopathy affecting upper extremity (Chronic) Iron deficiency anemia (Chronic) Increased PTH level (Chronic) Low vitamin D level (Chronic) Paroxysmal atrial fibrillation (Chronic) Chronic renal failure, stage 4 (severe) (Chronic) Nocturnal hypoxia (Chronic) Noncompliance with CPAP treatment (Chronic) LADARIUS (obstructive sleep apnea) (Chronic) Gout (Chronic) History of tobacco abuse (Chronic) quit in April 2017 Hx of CABG (Chronic) x3 2003 Coronary artery disease (Chronic) has had 3 stents.....the last stent he thinks in 2008 Hypertension (Chronic) Diabetes mellitus type 2 in obese (Chronic) Non-STEMI (non-ST elevated myocardial infarction) (Chronic) Medical History: Medical History (Last Reviewed 08/12/17 @ 10:27 by Yaquelin Simpson) Acute renal failure superimposed on stage 4 chronic kidney disease (Acute) N17.9, N18.4 Radiculopathy affecting upper extremity (Chronic) M54.10 NSAID long-term use (Chronic) Z79.1 Uncontrolled diabetes mellitus (Chronic) E11.65 Acute exacerbation of chronic obstructive pulmonary disease (COPD) (Acute) J44.1 Heme + stool (Acute) R19.5 Iron deficiency anemia (Chronic) D50.9 Urinary retention due to benign prostatic hyperplasia (Chronic) N40.1, R33.8 Increased PTH level (Chronic) E34.9 Metabolic acidosis (Acute) E87.2 Low vitamin D level (Chronic) E55.9 Paroxysmal atrial fibrillation (Acute) I48.0 Chronic renal failure, stage 4 (severe) (Chronic) N18.4 Nocturnal hypoxia (Chronic) G47.34 Noncompliance with CPAP treatment (Chronic) Z91.14 LADARIUS (obstructive sleep apnea) (Chronic) G47.33 Acute respiratory failure with hypoxemia (Acute) J96.01 Influenza B (Acute) J10.1 Streptococcal pneumonia (Acute) J15.4 Severe sepsis (Acute) A41.9, R65.20 Gout (Chronic) M10.9 History of tobacco abuse (Chronic) Z87.891 Coronary artery disease (Chronic) I25.10 Lower GI bleed (Ruled-out) K92.2 Hypertension (Chronic) I10 Acute kidney injury (Acute) N17.9 Diabetes mellitus type 2 in obese (Chronic) E11.69, E66.9 Non-STEMI (non-ST elevated myocardial infarction) (Acute) I21.4 Allergies No Known Allergies Allergy (Verified 08/12/17 10:31) Home Medications: Ambulatory Orders Medication Instructions Recorded Albuterol Inhaler [Ventolin Hfa] 1 - 2 puff INHALATION Q6H PRN PRN 05/14/17 Surgical History: Surgical History (Last Reviewed 08/12/17 @ 10:27 by Yaquelin Simpson) Hx of CABG (Chronic) Z95.1 x3 2004 S/P removal of lung Z90.2 3/4 of right lung was removed by Dr. Todd in [facility] 11/2009 Surgical History: angioplasty - stent x2 2003, - - rt lung thoracotomy, lobectomy 2009 for benign tumor Psychiatric History: No pertinent psych hx Lives: Spouse/ Significant Other Smoking Status: Former smoker Tobacco Use: Non-smoker Alcohol: Rare Drugs: None - *Family History Maternal Family History: Family History (Last Reviewed 08/12/17 @ 10:27 by Yaquelin Simpson) Father Leukemia Mother COPD (chronic obstructive pulmonary disease) History Items: COPD Paternal Family History: Family History (Last Reviewed 08/12/17 @ 10:27 by Yaquelin Simpson) Father Leukemia Mother COPD (chronic obstructive pulmonary disease) History Items: Cancer - leukemia, Hypertension Review of Systems Constitutional: Reports: Fatigue. Denies: Chills, Fever, Weight Change Eyes: Denies: Vision Change HEENT: Denies: Head Aches, Sinus Congestion, Sinus Drainage, Sore Throat Cardiovascular: Denies: Chest Pain, Light Headedness, Palpitations, Syncope Respiratory: Denies: Cough, Shortness of breath at rest, Sputum production Gastrointestinal: Reports: Diarrhea. Denies: Abdominal Pain, Nausea, Vomiting Genitourinary: Denies: Dysuria, Frequency, Hematuria, Incontinence, Retention Musculoskeletal: Denies: Joint Pain, Joint Tenderness Skin: Denies: Rash, Wounds Neurological: Reports: Numbness - numbness of the left side which is chronic. Denies: Focal weakness, Tingling Psychiatric: Denies: Anxiety, Depression, Homicidal Ideations, Suicidal Ideations Endocrine: Denies: Change in Body Habitus Hematologic/ Lymphatic: Denies: Hx of blood clot VTE Information - Inpt Only VTE Present on Admission: No VTE Mechan Device Prophylaxis: None - he has severe PVD VTE Pharm Prophylaxis ordered?: Yes Patient Problems: Active and Suspected Problems (Last Reviewed 08/12/17 @ 10:27 by Yaquelin Simpson) Hyperkalemia (Acute) - Physical Exam General: Alert, Oriented x3, Cooperative, No apparent distress, Well developed, Well nourished HEENT: Atraumatic, PERRLA, EOMI, - - Pale palpebral conjunctiva Oral: Dry Mucosa Neck: Supple, No JVD, No Nodes, Trachea Midline Lungs: Clear to auscultation, Diminished Cardiovascular: Regular rate, Regular Rhythm, Normal S1, Normal S2, No murmurs, No Ectopic Activity, No rub noted, No Gallop Abdomen: Soft, Non Tender, Non-Distended, Obese Extremities: No clubbing, No cyanosis, No edema, No Calf Tenderness, Diminished Peripheral Pulses Skin: No breakdown Musculoskeletal: Arthritic Changes Neurological: Cranial nerves II-XII grossly intact, Neuro grossly intact Psych/Mental Status: Normal Affect, Appropriate Vital Signs Temp Pulse Resp BP Pulse Ox 97.8 F 87 16 136/98 H 98 09/15/17 13:58 09/15/17 13:58 09/15/17 13:58 09/15/17 13:58 09/15/17 13:58 Assessment/Plan All Active Problems (Last Reviewed 08/12/17 @ 10:27 by Yaquelin Simpson) Hyperkalemia (Acute) Acute renal failure superimposed on stage 4 chronic kidney disease (Acute) Metabolic acidosis (Acute) Benign neoplasm of right lung (Resolved) Acute exacerbation of chronic obstructive pulmonary disease (COPD) (Resolved) Acute respiratory failure with hypoxemia (Resolved) Heme + stool (Resolved) Influenza B (Resolved) Lower GI bleed (Resolved) Severe sepsis (Resolved) Streptococcal pneumonia (Resolved) Urinary retention due to benign prostatic hyperplasia (Resolved) Impressions 1. Hyperkalemia 2. Acute renal failure on chronic renal failure stage IV 3. Metabolic acidosis 4. Hypertension 5. Diabetes mellitus type 2 6. COPD 7. Coronary artery disease with history of CABG in 2003 and 3 stents, the last in 2008 8. Hyperlipidemia 9. LADARIUS-noncompliant with CPAP 10. Nocturnal hypoxemia-on oxygen 11. History of gout 12. Former smoker-quit April 2017 13. BPH 14. History of iron deficiency anemia 15. 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 Check a HGBA1C Check iron studies Consult Dr. Daysi Magana for acute on chronic renal failure VBG Discontinue lisinopril Recheck BMP at 8 PM tonight Code Visit Inpatient E AND M: [id number] Init Hosp L3 09/15/17 1516 <Electronically signed by John Marcum DO> Date John Marcum DO Cosigner Signature: Date (if applicable) CC: Alena Marcum; Caesar Chavez DO; Daysi Magana DO; Nahun Barlow D.O. Signed Observed: 09/15/2017 Status: F Source: [place] STOOL OCCULT BLOOD 1:55 PM [facility] IFOB REPOSITORY Order Date: 09/15/17 STOB iFOB Normal Reference Range = Negative CRITICAL VALUE VERIFIED. CALLED TO HARRIETT MONET 09/15/17 Kike Melgar. RESULTS READ BACK BY HARRIETT . Occult Blood Positive ORGANISM 1: OCCULT BLOOD POSITIVE Performed By: #### M100.7900 #### [facility] [address] [place], [address] CBC W/DIFF, AUTOMATED Collected: 09/15/2017 Status: F Source: [place] 1:15 PM [facility] REPOSITORY TYPE CODE TESTS RESULT OUT OF RANGE REFERENCE UNITS LAB L100.1000 4.4-11.0 K/mm3 Normal WBC 7.7 LAB L100.1200 4.6-6.2 M/mm3 Low RBC 3.23 LAB L100.1300 13.0-16.5 g/dl Low HGB 8.2 LAB L100.1400 40-54 % Low HCT 27.1 LAB L100.1500 80-94 fL Normal MCV 83.9 LAB L100.1600 27.0-32.0 pg Low MCH 25.4 LAB L100.1700 32-36 g/gl Low MCHC 30.3 LAB L100.1810 11.6-14.6 % High RDW CV 15.9 LAB L100.1820 35.1-43.9 fl High RDW SD 49.2 LAB L100.1900 150-450 K/mm3 Normal PLT 264 LAB L100.2000 6.2-12.0 fl Normal MPV 11.6 LAB L100.2100 47-70 % Normal NEUT% 60.3 LAB L100.2200 19-41 % Normal LY% 22.3 LAB L100.2300 0-10 % Normal MONO% 7.4 LAB L100.2400 0-5 % High EO% 9.5 LAB L100.2500 0-1 % Normal BASO% 0.4 LAB L100.2550 0.0-0.9 % Normal IM GRAN % 0.100 Result Comment: IG% - Immature Granulocytes (promyelocytes, myelocytes and metamyelocytes) > 1% indicates that a LEFT SHIFT is Present. LAB L100.2620 2.0-7.7 X10 3/uL Normal Absolute Neut 4.6 LAB L100.2720 0.83-4.51 X10 3/ul Normal Absolute Lymph 1.71 Performed By: #### L100.0100 #### [facility] [address] [place], [address] BASIC METABOLIC Collected: 09/15/2017 Status: F Source: [place] PROFILE (BMP) 1:15 PM [facility] REPOSITORY TYPE CODE TESTS RESULT OUT OF RANGE REFERENCE UNITS LAB L501.0100 74-106 mg/dL Normal GLU 93 Result Comment: Please note revised GLUCOSE reference range effective 2017. LAB L501.1000 7-18 mg/dL High alert BUN 103 Result Comment: Critical Result(s) Called at: 13:42:08 09/15/2017 by: Geni pina Sin LAB L501.1100 0.70-1.30 mg/dL CREAT,SERUM High 3.99 Result Comment: The validity of the calculated GFR AND GFRAA in patients over 70 years has not been determined. Clinical correlation is essential. LAB L501.1110 >60 mL/min Low EST GFR 16 Result Comment: Non- GFR Calc LAB L501.1115 >60 mL/min Low EST GFR - AA 20 Result Comment: GFR Calc LAB L501.1255 ml/min Normal Estimated CRCL 21.69 LAB L501.1300 10-20 RATIO High BUN/CRE 25.8 LAB L501.2200 8.5-10 mg/dL Normal .1 CA 9.3 LAB L501.5300 136-14 mmol/L Normal 5 NA 141 LAB L501.5600 3.5-5. mmol/L High 1 K alert 7.0 Result Comment: Critical Result(s) Called at: 13:42:08 09/15/2017 by: Geni pina Sin LAB L501.5900 98-107 mmol/L High CL 118 LAB L501.6100 21.0-32.0 mmol/L Low CO2 13.0 LAB L501.6200 5-15 Normal GAP 10 Performed By: #### L500.2500 #### [facility] [address] [facility] [place], [place], [address] PHOSPHORUS Collected: 09/15/2017 Status: F Source: [place] 1:15 PM [facility] REPOSITORY TYPE CODE TESTS RESULT OUT OF RANGE REFERENCE UNITS LAB L501.2300 2.5-4.9 mg/dL High PHOS 5.6 Performed By: #### L501.2300, L503.6030, L503.6550 #### [facility] [address] [place], [place], [address] IRON+IRON BINDING Collected: 09/15/2017 Status: F Source: [place] CAPACITY 1:15 PM [facility] REPOSITORY TYPE CODE TESTS RESULT OUT OF RANGE REFERENCE UNITS LAB L503.6075 250-450 ug/dL High TIBC 473 LAB L503.6150 65-175 ug/dL High IRON 177 LAB L503.6250 15.0-55.0 % IRON Normal SATURATION 37.4 Performed By: #### L501.2300, L503.6030, L503.6550 #### [facility] [address] [place], [address] FERRITIN Collected: 09/15/2017 Status: F Source: [place] 1:15 PM [facility] REPOSITORY TYPE CODE TESTS RESULT OUT OF REFERENCE UNITS RANGE LAB L503.6550 26-388 ng/mL Low FERRITIN 14 Performed By: #### L501.2300, L503.6030, L503.6550 #### [facility] [address] [place], [place], [address] HEMOGLOBIN A1C Collected: 09/15/2017 Status: F Source: [place] 1:15 PM [facility] REPOSITORY TYPE CODE TESTS RESULT OUT OF RANGE REFERENCE UNITS LAB L501.9985 4.2-6.3 % High HGB A1C 6.6 Performed By: #### L501.9985 #### [facility] [address], [address] PROTEIN+CREATININE Collected: Status: F Source: [place] RATIO,URINE 09/15/2017 10:10 AM [facility] REPOSITORY TYPE CODE TESTS RESULT OUT OF RANGE REFERENCE UNITS LAB L501.1200 NO RANGE EST. mg/dL Normal UR CREAT 139.00 LAB L501.1930 <11.9 mg/dL High 36.2 PROTEIN,UR.R AN. LAB L501.1940 0-200 mg/g CRE High PROT:CRE 260 RATIO Performed By: #### L501.0900 #### [facility] [address] [place], [address] RENAL PROFILE Collected: 09/15/2017 Status: F Source: [place] 10:10 AM [facility] REPOSITORY TYPE CODE TESTS RESULT OUT OF RANGE REFERENCE UNITS LAB L501.0100 74-106 mg/dL High GLU 167 Result Comment: Fasting Glucose result greater than or equal to 126 mg/dL suggests DIABETES MELLITUS per A.D.A. criteria. Please note revised GLUCOSE reference range effective 2017. LAB L501.1000 7-18 mg/dL High alert BUN 102 Result Comment: Critical Result(s) Called at: 11:40:55 09/15/2017 by: Geni Shetty to [facility] LAB L501.1100 0.70-1.30 mg/dL CREAT,SERUM High 4.00 Result Comment: The validity of the calculated GFR AND GFRAA in patients over 70 years has not been determined. Clinical correlation is essential. LAB L501.1110 >60 mL/min Low EST GFR 16 Result Comment: Non- GFR Calc LAB L501.1115 >60 mL/min Low EST GFR - AA 20 Result Comment: GFR Calc LAB L501.1300 10-20 RATIO High BUN/CRE 25.5 LAB L501.1800 3.2-5.0 g/dL Normal ALB 3.5 LAB L501.2200 8.5-10.1 mg/dL CA Normal 9.2 LAB L501.2300 2.5-4.9 mg/dL High PHOS 6.1 LAB L501.5300 136-145 mmol/L NA Normal 142 LAB L501.5600 3.5-5.1 mmol/L High K alert 6.8 Result Comment: Critical Result(s) Called at: 11:40:55 09/15/2017 by: Geni Shetty to [facility] LAB L501.5900 98-107 mmol/L High CL 118 LAB L501.6100 21.0-32.0 mmol/L Low CO2 14.0 Performed By: #### L500.3600 #### [facility] [address] [facility] [place], [address] PULMONARY FUNCTION Observed: 09/10/2017 Status: F Source: [place] REPORT COMP 5:56 AM [facility] REPOSITORY [facility] Pulmonary Services/Neurology [address] [place] [address] MR#: [id number] Acct: [id number] Name: BARI ROMERO Rep #: [id number] : 1955 61 From: Wellington Bonilla MD Referring Dr: Loan Navarrete NP Status: REG CLI Ordering Dr: Date: Location: [facility] Sex: M C COMPLETE PULMONARY FUNCTION TEST INTERPRETATION Brief HPI: Patient is a 61 year old male, currently under the care of Loan Navarrete, who presents to [facility] for complete pulmonary function tests secondary to diagnosis of COPD. Respiratory therapist reports good effort and reproducible results. Interpretation: Forced expiration spirometry shows a severe large airways obstructive ventilatory defect with an FEV1 of 37% predicted. There is no significant bronchodilator response by ATS criteria. Spirograms are of good quality and plateau slowly, indicating slowly emptying areas of the lungs. The respiratory flow volume loop shows decreased expiratory flow rates at all lung volumes consistent with airway obstruction. Lung volumes by body plethysmography show a decreased total lung capacity at 5.29 L, 72% predicted. All other lung volumes are within normal limits. Diffusion capacity by carbon monoxide is decreased at 9.6% predicted. The airway resistance is elevated. No previous pulmonary function tests were available for review. Impression: Irreversible severe mixed ventilatory defect with a symmetric reduction diffusing capacity. 09/10/17 0556 <Electronically signed by Wellington Bonilla MD> Date Wellington Bonilla MD CC: Wellington Bonilla MD; Caesar Chavez DO; Loan Navarrete Date Dictated: 09/10/17 0554 Date Transcribed: 09/10/1754 Stem Lead Former: DODIE Signed PULMONARY VISIT REPORT Observed: 08/12/2017 Status: F Source: [place] 10:58 AM [facility] REPOSITORY Pulmonary Medicine of [address] [place] [address] OFFICE VISIT Date of Service: 08/12/17 MR#: [id number] Acct: [id number] Name: BARI ROMERO Rep #: [id number] : 1955 Provider: Nahun Barlow D.O. Age/Sex: 61/M Location: [facility] [facility] Status: Signed Assessment AND Plan 1. Chronic obstructive pulmonary disease, unspecified COPD type J44.9 Plan Although the patient does have a prolonged smoking history, he has never undergone formal pulmonary function testing to confirm or refute a diagnosis of COPD. He has baseline, chronic exertional dyspnea. He is currently only utilizing albuterol rescue inhaler at his baseline. Therefore, the patient will again be referred to undergo formal pulmonary function testing. His recent 6 minute walk test revealed oxygen desaturation to 89% with ambulation. This will also need to be repeated in the near future. However, for now, the patient does not appear to have a baseline supplemental oxygen requirement. He will follow-up with our nurse practitioner to review the results of his testing and to initiate a maintenance inhaler regimen, if clinically indicated. Orders Orders: 2. LADARIUS (obstructive sleep apnea) G47.33 Plan The patient has a known history of obstructive sleep apnea and is currently noncompliant with use of nocturnal Pap therapy. Given the patient's symptoms and age of his machine, I recommended that he undergo a re-titration study. While reluctant, the patient does seem to be more in agreement to proceed today as compared to previous. Orders have been placed accordingly. Orders Orders: 3. Tobacco dependence in remission F17.201 Plan Ongoing tobacco cessation strongly encouraged. Orders Orders: Plan Detail Follow Up 2 Months (CSM) HPI HPI Comments Details: The patient is a 61-year-old male who presents to the clinic today for a routine scheduled follow-up office visit. If you recall, the patient initially presented to the pulmonary medicine office in May 2017 following a hospitalization for acute respiratory failure in the setting of severe sepsis due to influenza B. The patient has a [id number] smoking history, having quit completely in 2017. He has a suspected history of COPD, but has never undergone formal pulmonary function testing. In addition, patient has known obstructive sleep apnea, but is currently not compliant with use of nocturnal Pap therapy. He does state that he does have a CPAP machine in his home environment, but it is approximately 8-9 years old. The patient states that he was still on his prednisone taper at the time he was scheduled to undergo his PFTs. Therefore, his PFTs were placed on hold. 6 minute walk test completed in June 2017 did reveal significant exertional oxygen desaturation, but did not meet inclusion criteria for the use of supplemental oxygen. Today, the patient reports ongoing, chronic dyspnea with exertion. He is currently only utilizing albuterol on an as-needed basis in his home environment. He reports that on average she utilizes his albuterol 3-4 times per week. He denies the presence of chest tightness, wheezing or cough. He is no longer utilizing supplemental oxygen at his baseline. His weight has been stable. He denies fevers, chills or night sweats. He additionally denies chest pain, dizziness or lightheadedness. Intake Vital Signs08/12/17 Height 6 ft 1 in 08/12/17 Weight: 240 lb Intake Visit Reasons: 2 M FU Chief Complaint: SHORTNESS OF BREATH Soap Tender Required: No Accompanied by: Self Is patient in pain?: No Allergies No Known Allergies Allergy (Verified 08/12/17 10:31) Medications Albuterol Inhaler [Ventolin Hfa] 1 - 2 puff INHALATION Q6H PRN PRN 05/14/17 [History Confirmed 06/03/17] Aspirin 81 mg PO DAILY 05/14/17 [History Confirmed 06/03/17] Clopidogrel Bisulfate [Clopidogrel] 75 mg PO DAILY 05/14/17 [History Confirmed 06/03/17] Insulin Aspart [Novolog Flexpen] See Protocol SC TIDCM 05/14/17 [History Confirmed 06/03/17] Insulin Degludec [Tresiba Flextouch U-100] 60 unit SC BID 05/14/17 [History Confirmed 06/03/17] Lisinopril [Zestril] 40 mg PO DAILY 05/14/17 [History Confirmed 06/03/17] Nitroglycerin [Nitrostat] 0.4 mg SUBLINGUAL Q5M PRN 05/14/17 [History Confirmed 06/03/17] Oxycodone [Oxyir] 5 mg PO BID PRN PRN 05/14/17 [History Confirmed 06/03/17] Simvastatin 80 mg PO QHS 05/14/17 [History Confirmed 06/03/17] Acetaminophen [Tylenol Tablet] 650 mg PO Q4H PRN PRN tab 05/18/17 [Rx Confirmed 06/03/17] Albuterol Aerosols [Ventolin Aerosols] 2.5 mg INHALATION UD #120 vial.neb. 05/18/17 [Rx Confirmed 06/03/17] Allopurinol [Zyloprim] 150 mg PO DAILYCM #16 tab 05/18/17 [Rx Confirmed 06/03/17] Cilostazol 50 mg PO BID #15 tab 05/18/17 [Rx Confirmed 06/03/17] Ergocalciferol [Vitamin D] 50,000 unit PO Q7D #12 cap 05/18/17 [Rx Confirmed 06/03/17] Ferrous Sulfate 325 mg PO BIDCM #60 tab 05/18/17 [Rx Confirmed 06/03/17] Finasteride [Proscar] 5 mg PO DAILY #30 tab 05/18/17 [Rx Confirmed 06/03/17] Isosorbide Mononitrate [Imdur] 30 mg PO DAILY #30 tab 05/18/17 [Rx Confirmed 06/03/17] Metoprolol(XL)Succ [Toprol Xl (Beta Vanesa)] 50 mg PO DAILY #30 tab 05/18/17 [Rx Confirmed 06/03/17] Nebulizer [Aeroneb Go Nebulizer] 1 ea MC 4X/DAY #1 ea 05/18/17 [Rx Confirmed 06/03/17] Oxygen, Home [Home Oxygen] 2 - 3 lpm NASAL UD #1 unit 05/18/17 [Rx Confirmed 06/03/17] Pantoprazole Sodium [Protonix] 40 mg PO DAILY #30 tab 05/18/17 [Rx Confirmed 06/03/17] Sodium Bicarbonate 650 mg PO TID #90 tab 05/18/17 [Rx Confirmed 06/03/17] Tamsulosin HCl [Flomax] 0.4 mg PO DAILY@1730 #30 cap 05/18/17 [Rx Confirmed 06/03/17] hydrALAZINE [Apresoline] 25 mg PO TID #90 tab 05/18/17 [Rx Confirmed 06/03/17] [facility] Medical History Acute renal failure superimposed on stage 4 chronic kidney disease (Acute) Radiculopathy affecting upper extremity (Chronic) NSAID long-term use (Chronic) Uncontrolled diabetes mellitus (Chronic) Acute exacerbation of chronic obstructive pulmonary disease (COPD) (Acute) Heme + stool (Acute) Iron deficiency anemia (Chronic) Urinary retention due to benign prostatic hyperplasia (Chronic) Increased PTH level (Chronic) Metabolic acidosis (Acute) Low vitamin D level (Chronic) Paroxysmal atrial fibrillation (Acute) Chronic renal failure, stage 4 (severe) (Chronic) Nocturnal hypoxia (Chronic) Noncompliance with CPAP treatment (Chronic) LADARIUS (obstructive sleep apnea) (Chronic) Acute respiratory failure with hypoxemia (Acute) Influenza B (Acute) Streptococcal pneumonia (Acute) Severe sepsis (Acute) Gout (Chronic) History of tobacco abuse (Chronic) Coronary artery disease (Chronic) Lower GI bleed (Ruled-out) Hypertension (Chronic) Acute kidney injury (Acute) Diabetes mellitus type 2 in obese (Chronic) Non-STEMI (non-ST elevated myocardial infarction) (Acute) Surgical History Hx of CABG (Chronic) S/P removal of lung (Resolved) Family History Father Leukemia Mother COPD (chronic obstructive pulmonary disease) Social History household members: spouse housing: other details: mobile home current occupational status: disabled pets and animals: Yes pets and animals: dog(s) Smoking Status: Former smoker quit date: 02/14/17 pack-years: 40 second hand exposure: No alcohol intake: never substance use type: does not use Review of Systems Const CONSTITUTIONAL: Negative anorexia, body ache, chills, daytime sleepiness, fever(s), night sweats, oral thrush, stops breathing during sleep, weight loss, sleeping in chair, fatigue, weight loss, weight gain, frequent colds, seasonal allergies, other, headache(s) or orthopnea EETM Ear Nose Throat Mouth: Positive hearing normal; negative hard of hearing, hoarseness, dry mouth in morning, change in vision, itchy eyes, eye pain, swallowing Difficulty, ear pain, nose bleed, headache(s), mouth pain, nasal congestion, nasal discharge, post nasal drip, sinus pain, sinus pressure, sore throat or other Cardio Cardiovascular: Negative chest pain, chest pain at rest, chest pain with activity, irregular heart rhythm, edema, shortness of breath when lying down, palpitations, murmur or other Resp Respiratory: Positive as per HPI, shortness of breath shortness of breath: Positive with activity and inhalers; negative pain with cough, wheezing, chest congestion, cough, chest tightness, pain on inspiration, increase use of rescue inhalers, snoring, apnea or other Gastro Gastrointestional: Negative bloody stools, change in appetite, difficulty swallowing, reflux, hematemesis, melena stool, loose stool, constipation or other Genitourinary: Positive nocturia; negative blood in urine, pain with urination or other Musc Musculoskeletal: Negative body pain, back pain, neck pain or other Skin/Breast Skin/Breast: Negative dry skin, itching, rash, unusual bruising, breast lump or other Neuro Neurological: Negative restless legs, confusion, weakness or other Psych Psychocological: Negative abnormal sleep pattern, anxiety, thoughts of hurting self/others, hopelessness or other Lymph Lymphatic: Negative easy bleeding, easy bruising, swollen lymph nodes or other Exam Const Constitutional: Positive conversant, cooperative, in no acute respiratory distress, well developed, well nourished, good hygiene and obese Head Head: Positive normocephalic and atraumatic; negative cyanosis of lips/distal nose Eyes Eye: Positive clear conjunctiva; negative nystagmus or scleral abnormality Ears Ear: Positive hearing normal and external ears normal; negative hard of hearing Nose Nose: Positive external nose normal; negative epistaxis Mouth Mouth: Positive oral mucosae normal and posterior oropharynx is adequate; negative no lesions or post nasal drip Mallampati Score: III: Mallampati Score Neck Neck: Positive normal visual inspection and trachea midline; negative lymphadenopathy Chest Wall Chest: Positive symmetric chest movement Normal AP diameter. Resp lung sounds: Positive diminished diminished: Positive global and prolonged expiratory time; negative wheezes, rhonchi or rales Cardio Cardiac: Positive regular rate, regular rhythm, S1 normal and S2 normal; negative rub, gallop or murmur GI GI: Positive normal bowel sounds and obese Soft without distention Genitourinary: Positive deferred [facility] Musculoskeletal: Positive steady gait Skin Pulmonary Skin Exam: Positive intact; negative lesion, ulcers, dermal atrophy or rash Pulses Pulse: Yes Pedal pulses present: Extremities Extremities: No clubbing, No cyanosis, No edema Neuro Neurologic: Yes conversant, Yes no focal neuro deficits, Yes cooperative Lymph Lymphatic: No lymphadenopathy Psych Appearance: Positive grossly normal Mental Status: Positive mental status grossly normal Mood: Positive congruent mood Affect: Positive normal affect Coding Level of Care Code Off vis,est,level 3 Diagnoses Chronic obstructive pulmonary disease, unspecified COPD type J44.9 COPD type: unspecified COPD LADARIUS (obstructive sleep apnea) G47.33 Tobacco dependence in remission F17.201 08/12/17 1058 <Electronically signed by Nahun Barlow DO> Date Nahun Barlow DO Cosigner Signature: Date (if applicable) CC: Caesar Chavez DO OFFICE VISIT REPORT Observed: 07/02/2017 Status: F Source: [place] 9:59 AM [facility] [place] [address] OFFICE VISIT Date of Service: 07/02/17 MR#: [id number] Acct: [id number] Patient: BARI ROMERO Rep #: [id number] : 1955 Provider: Loan Navarrete Age/Sex: 61/M Location: [facility] Status: Signed Intake Vital Signs07/02/17 Pulse Ox 92 Intake Visit Reasons: 6 MIN WALK Chief Complaint: Shortness of breath Allergies No Known Allergies Allergy (Verified 06/03/17 08:22) Medications Albuterol Inhaler [Ventolin Hfa] 1 - 2 puff INHALATION Q6H PRN PRN 05/14/17 [History Confirmed 06/03/17] Aspirin 81 mg PO DAILY 05/14/17 [History Confirmed 06/03/17] Clopidogrel Bisulfate [Clopidogrel] 75 mg PO DAILY 05/14/17 [History Confirmed 06/03/17] Insulin Aspart [Novolog Flexpen] See Protocol SC TIDCM 05/14/17 [History Confirmed 06/03/17] Insulin Degludec [Tresiba Flextouch U-100] 60 unit SC BID 05/14/17 [History Confirmed 06/03/17] Lisinopril [Zestril] 40 mg PO DAILY 05/14/17 [History Confirmed 06/03/17] Nitroglycerin [Nitrostat] 0.4 mg SUBLINGUAL Q5M PRN 05/14/17 [History Confirmed 06/03/17] Oxycodone [Oxyir] 5 mg PO BID PRN PRN 05/14/17 [History Confirmed 06/03/17] Simvastatin 80 mg PO QHS 05/14/17 [History Confirmed 06/03/17] Acetaminophen [Tylenol Tablet] 650 mg PO Q4H PRN PRN tab 05/18/17 [Rx Confirmed 06/03/17] Albuterol Aerosols [Ventolin Aerosols] 2.5 mg INHALATION UD #120 vial.neb. 05/18/17 [Rx Confirmed 06/03/17] Allopurinol [Zyloprim] 150 mg PO DAILYCM #16 tab 05/18/17 [Rx Confirmed 06/03/17] Cilostazol 50 mg PO BID #15 tab 05/18/17 [Rx Confirmed 06/03/17] Ergocalciferol [Vitamin D] 50,000 unit PO Q7D #12 cap 05/18/17 [Rx Confirmed 06/03/17] Ferrous Sulfate 325 mg PO BIDCM #60 tab 05/18/17 [Rx Confirmed 06/03/17] Finasteride [Proscar] 5 mg PO DAILY #30 tab 05/18/17 [Rx Confirmed 06/03/17] Isosorbide Mononitrate [Imdur] 30 mg PO DAILY #30 tab 05/18/17 [Rx Confirmed 06/03/17] Metoprolol(XL)Succ [Toprol Xl (Beta Vanesa)] 50 mg PO DAILY #30 tab 05/18/17 [Rx Confirmed 06/03/17] Nebulizer [Aeroneb Go Nebulizer] 1 ea MC 4X/DAY #1 ea 05/18/17 [Rx Confirmed 06/03/17] Oxygen, Home [Home Oxygen] 2 - 3 lpm NASAL UD #1 unit 05/18/17 [Rx Confirmed 06/03/17] Pantoprazole Sodium [Protonix] 40 mg PO DAILY #30 tab 05/18/17 [Rx Confirmed 06/03/17] Sodium Bicarbonate 650 mg PO TID #90 tab 05/18/17 [Rx Confirmed 06/03/17] Tamsulosin HCl [Flomax] 0.4 mg PO DAILY@1730 #30 cap 05/18/17 [Rx Confirmed 06/03/17] hydrALAZINE [Apresoline] 25 mg PO TID #90 tab 05/18/17 [Rx Confirmed 06/03/17] prednisone 10 mg tablet 10 mg PO QDAY #30 tab 06/19/17 [Rx] Office Procedures Walking Oximetry Walking Oximetry Procedure performed by: Sommer Mckeon Walking Oximetry: Yes walking oximetry preformed, desaturation below 89% occured, lowest saturation (87%) and oxygen applied (2 lpm) 07/02/17 0959 <Electronically signed by Loan Navarrete SOFTWARE QUALITY AUTOMATION ENGINEERLucilleC> Date Loan Navarrete SOFTWARE QUALITY AUTOMATION ENGINEER-C Cosigner Signature: Date (if applicable) CC: FE Collected: 07/01/2017 Status: F Source: [facility] 1:56 PM [facility] REPOSITORY TYPE CODE TESTS RESULT OUT OF RANGE REFERENCE UNITS LAB FE(LOINC) 65-170 mcg/dL Low Iron 35 Performed By: #### ADTORI, ANEU, RETO, FE, CBC #### [place] [address] CBC Collected: 07/01/2017 Status: F Source: [facility] 1:56 PM [facility] REPOSITORY TYPE CODE TESTS RESULT OUT OF REFERENCE UNITS RANGE LAB WBC(LOINC) 4.60-10.80 10 3/mcL WBC 10.70 LAB RBCCT(LOINC 4.04-6.13 10 6/mcL ) Low RBC 3.85 LAB HGB(LOINC) 14.0-18.0 G/dL Low Hgb 10.5 LAB HCT(LOINC) 42.0-52.0 % Low Hct 32.8 LAB MCV(LOINC) 80.0-94.0 fL MCV 85.2 LAB MCH(LOINC) 27.0-31.2 pg MCH 27.2 LAB MCHC(LOINC) 31.8-35.4 G/dL MCHC 31.9 LAB RDW(LOINC) 11.5-14.5 % High RDW 25.9 LAB PLT(LOINC) 130-400 10 3/mcL Platelet 331 LAB MPV(LOINC) 7.4-10.4 fL MPV 9.9 Performed By: #### TREVOR, ANEU, RETO, FE, CBC #### [address] [address] RETO (AO) Collected: 07/01/2017 Status: F Source: [facility] 1:56 PM [facility] REPOSITORY TYPE CODE TESTS RESULT OUT OF REFERENCE UNITS RANGE LAB PERRI(LOINC) 0.2-2.3 % High Reticulocytes, 3.5 Auto LAB IRF(LOINC) 0.20-0.46 IRF High Immature Retic 0.58 Fraction Performed By: #### ADTORI, ANEU, RETO, FE, CBC #### [address] [address] .AUTO DIFF Collected: 07/01/2017 Status: F Source: [facility] 1:56 PM [facility] REPOSITORY TYPE CODE TESTS RESULT OUT OF REFERENCE UNITS RANGE LAB KIKI(LOINC) 37.0-80.0 % Neutrophil % 72.2 LAB LYM(LOINC) 10.0-50.0 % Lymphocyte % 16.9 LAB MON(LOINC) 1.7-13.0 % Monocyte % 7.3 LAB EO(LOINC) 0.0-7.0 % Eosinophil % 2.5 LAB BAS(LOINC) 0.0-2.5 % Basophil % 1.1 LAB ABLYM(LOIN 0.77-3.85 10 3/mcL C) Lymphocyte, 1.80 Absolute LAB KAI(LOINC 0.15-1.00 10 3/mcL ) Monocyte, 0.80 Absolute LAB AEOS(LOINC 0.00-0.40 10 3/mcL ) Eosinophil, 0.30 Absolute LAB ABAS(LOINC 0.00-0.19 10 3/mcL ) Basophil, 0.10 Absolute Performed By: #### TREVOR, ANEU, RETO, FE, CBC #### [address] [address] .NEUABS Collected: 07/01/2017 Status: F Source: [facility] 1:56 PM [facility] REPOSITORY TYPE CODE TESTS RESULT OUT OF REFERENCE UNITS RANGE LAB ANEU(LOINC) 2.85-6.16 10 3/mcL High Neutrophil, 7.70 Absolute Performed By: #### ADTORI, ANEU, RETO, FE, CBC #### [address] [place] [id number] [place], [place] [address] 6 MINUTE WALK TEST Observed: 06/26/2017 Status: F Source: [place] 1:51 PM [facility] REPOSITORY [facility] Pulmonary Services/Neurology [address] [place] [address] MR#: [id number] Acct: [id number] Name: BARI ROMERO Rep #: [id number] : 1955 61 From: Nahun Barlow DO Referring Dr: Loan Navarrete SOFTWARE QUALITY AUTOMATION ENGINEER Date: Ordering Dr: David: John Terry Location: PSN PSN 6 Minute Walk Test - 6 Minute Walk Test 6 Minute Walk Test: 6 Minute Walk Test PSN:6-Minute Walk Test Start: 06/26/17 09:18 Freq: Status: Active Protocol: RESP.6MINW Document 06/26/17 09:18 [facility] (Rec: 06/26/17 09:24 [facility] [id number]) 6 Minute Walk Test Date Performed 06/26/17 Time Performed 08:30 Height 6 ft 1 in Weight: 232 lb Weight in Pounds 232.[address]: Loan Nvaarrete Assistive device used: None Pre-test Oxygen Delivery Method Room Air Pulse Ox (%) 96 Pulse Rate (60-100 beats/min) 99 Dyspnea Lily Scale (0-10) 1 1st minute Oxygen Delivery Method Room Air Pulse Ox (%) 92 Pulse Rate (60-100 beats/min) 111 H Dyspnea Lily Scale (0-10) 1 2nd minute Oxygen Delivery Method Room Air Pulse Ox (%) 93 Pulse Rate (60-100 beats/min) 107 H Dyspnea Lily Scale (0-10) 2 Reported Symptoms Increased Work of Breathing 3rd minute Oxygen Delivery Method Room Air Pulse Ox (%) 90 Pulse Rate (60-100 beats/min) 109 H Dyspnea Lily Scale (0-10) 3 Reported Symptoms Increased Work of Breathing 4th minute Oxygen Delivery Method Room Air Pulse Ox (%) 91 Pulse Rate (60-100 beats/min) 112 H Dyspnea Lily Scale (0-10) 3 Reported Symptoms Increased Work of Breathing 5th minute Oxygen Delivery Method Room Air Pulse Ox (%) 89 Pulse Rate (60-100 beats/min) 112 H Dyspnea Lily Scale (0-10) 3 Reported Symptoms Increased Work of Breathing 6th minute Oxygen Delivery Method Room Air Pulse Ox (%) 91 Pulse Rate (60-100 beats/min) 109 H Dyspnea Lily Scale (0-10) 3 Reported Symptoms Increased Work of Breathing Post-test Oxygen Delivery Method Room Air Pulse Ox (%) 95 Pulse Rate (60-100 beats/min) 97 Dyspnea Lily Scale (0-10) 1 Full Laps Walked 12 Partial Lap, Number of Tiles Walked 14 Total Distance Walked (ft) 722 - Interpretation Interpretation: The patient ambulated 722 feet over the course of 6 minutes on room air without assistive devices or breaks. Pretesting oxygen saturation was noted to be 96% on room air. With ambulation, the sharonda oxygen saturation was 89%. There was evidence of impaired walk distance, significant exertional oxygen desaturation along with exertional tachycardia. - Recommendations Recommendations: There is no indication for the use of supplemental oxygen at this time. However, close interval follow-up is recommended given the degree of oxygen desaturation noted during this study. 06/26/17 1351 <Electronically signed by Nahun Barlow DO> Date Nahun Barlow DO CC: Date Dictated: 06/26/170 Date Transcribed: 06/26/171349 Stem Lead Former: Nahun Barlow DO Signed PROTEIN+CREATININE Collected: Status: F [facility] 12:20 PM [facility] REPOSITORY TYPE CODE TESTS RESULT OUT OF RANGE REFERENCE UNITS LAB L501.1200 NO RANGE EST. mg/dL Normal UR CREAT 91.50 LAB L501.1930 <11.9 mg/dL High 90.4 PROTEIN,UR.R AN. LAB L501.1940 0-200 mg/g CRE High PROT:CRE 988 RATIO Performed By: #### L501.0900 #### [facility] [address] [place], [address] RENAL PROFILE Collected: 06/17/2017 Status: F Source: [place] 12:20 PM [facility] REPOSITORY TYPE CODE TESTS RESULT OUT OF RANGE REFERENCE UNITS LAB L501.0100 74-106 mg/dL High GLU 112 Result Comment: Fasting Glucose result from 100 to 125 mg/dL suggests IMPAIRED HOMEOSTASIS per A.D.A. criteria. Please note revised GLUCOSE reference range effective 2017. LAB L501.1000 7-18 mg/dL High BUN 48 LAB L501.1100 0.70-1.30 mg/dL High CREAT,SERUM 2.58 Result Comment: The validity of the calculated GFR AND GFRAA in patients over 70 years has not been determined. Clinical correlation is essential. LAB L501.1110 >60 mL/min Low EST GFR 27 Result Comment: Non- GFR Calc LAB L501.1115 >60 mL/min Low EST GFR - AA 33 Result Comment: GFR Calc LAB L501.1300 10-20 RATIO Normal BUN/CRE 18.6 LAB L501.1800 3.2-5.0 g/dL Low ALB 2.5 LAB L501.2200 8.5-10.1 mg/dL CA Normal 9.6 LAB L501.2300 2.5-4.9 mg/dL Normal PHOS 4.0 LAB L501.5300 136-145 mmol/L NA Normal 143 LAB L501.5600 3.5-5.1 mmol/L K Normal 4.6 LAB L501.5900 98-107 mmol/L High CL 109 LAB L501.6100 21.0-32.0 mmol/L Normal CO2 25.0 Performed By: #### L500.3600 #### [facility] [address] [facility] [place], [place], [address] PULMONARY VISIT REPORT Observed: 06/04/2017 Status: F Source: [place] 4:40 PM [facility] REPOSITORY Pulmonary Medicine of [address] [place] [address] OFFICE VISIT Date of Service: 06/03/17 MR#: [id number] Acct: [id number] Name: BARI ROMERO Rep #: [id number] : 1955 Provider: Loan Navarrete Age/Sex: 61/M Location: [facility] Status: Signed Assessment AND Plan 1. Chronic obstructive pulmonary disease, unspecified COPD type J44.9 Status Suspected Plan Plan to obtain complete pulmonary function test to identify if in fact the patient has COPD and to quantify his disease state. After test results can be interpreted appropriate inhalers will be implemented. Follow-up with Dr. Barlow in 2 months. Orders Orders: 2. LADARIUS (obstructive sleep apnea) G47.33 Status Chronic Plan Deteriorated. During the interview the patient agreed that he was open to a titration study, and so it was ordered. We discussed the benefits of treating his sleep apnea and the risks of untreated sleep apnea and the comorbid complications of that. However, upon checkout the patient declined to schedule titration study. This can be revisited at his follow-up visit with Dr. Barlow. Orders Orders: 3. Acute respiratory failure with hypoxemia J96.01 Status Acute Plan Continue to utilize oxygen as needed to maintain saturations 89-92%. Plan to evaluate for continued supplemental oxygen needs during ambulation with a formal pulmonary stress test. Follow-up with Dr. Barlow in 2 months. 4. Influenza B J10.1 Status Acute Plan Improved. No further signs of persistent symptoms of influenza. Continue to monitor. Follow-up with Dr. Barlow in 2 months. Plan Detail Follow Up 2 Months (DMB) [facility] Hospital FU: Chief Complaint: Shortness of breath [facility] Comments Details: This is a 61 year old M, currently under the care of Caesar Chavez, here to follow up after a recent hospitalization at [facility], from May 14 - May 18, 2017 for acute respiratory failure with hypoxemia, influenza B and severe sepsis. The hospital stay was complicated by the need for BiPAP rescue support. 20 pages of hospital documentation was reviewed, and found to be significant for chest x-ray on May 14 that showed bibasilar infiltrates and a small effusion on the right side, renal ultrasound from May 14 was negative, chest x-ray on May 15 showed bibasilar infiltrates greater on the right than left and a small right pleural effusion. Upon discharge, the patient completed a 10 day course of Augmentin and a 12 day course of prednisone. Today, patient presents to the office stating that he has essentially returned to normal respiratory function, remains short of breath on exertion. He is using his Ventolin rescue inhaler several times per day for the shortness of breath, he does provide him with temporary relief. He is also using his albuterol nebulizer 3 times daily. He denies any cough, sputum production or hemoptysis. He is not experiencing chest tightness, wheezing, chest pain or palpitations. He is no longer experiencing fever, chills or body aches. See complete review of systems. He reports that he has a CPAP at home but admits that he has not been compliant with it. He states that he did not tolerate the BiPAP very well during the hospital stay. It was uncomfortable and felt as though it was giving him too much pressure support. He is willing to have a titration study at this time to identify appropriate pressure support levels, but does not seem hesitant. Intake Vital Signs06/03/17 Height 6 ft 1 in 06/03/17 Weight: 253 lb Intake Visit Reasons: Hospital FU Chief Complaint: SHORTNESS OF BREATH Allergies No Known Allergies Allergy (Verified 06/03/17 08:22) Medications Albuterol Inhaler [Ventolin Hfa] 1 - 2 puff INHALATION Q6H PRN PRN 05/14/17 [History Confirmed 06/03/17] Aspirin 81 mg PO DAILY 05/14/17 [History Confirmed 06/03/17] Clopidogrel Bisulfate [Clopidogrel] 75 mg PO DAILY 05/14/17 [History Confirmed 06/03/17] Insulin Aspart [Novolog Flexpen] See Protocol SC TIDCM 05/14/17 [History Confirmed 06/03/17] Insulin Degludec [Tresiba Flextouch U-100] 60 unit SC BID 05/14/17 [History Confirmed 06/03/17] Lisinopril [Zestril] 40 mg PO DAILY 05/14/17 [History Confirmed 06/03/17] Nitroglycerin [Nitrostat] 0.4 mg SUBLINGUAL Q5M PRN 05/14/17 [History Confirmed 06/03/17] Oxycodone [Oxyir] 5 mg PO BID PRN PRN 05/14/17 [History Confirmed 06/03/17] Simvastatin 80 mg PO QHS 05/14/17 [History Confirmed 06/03/17] Acetaminophen [Tylenol Tablet] 650 mg PO Q4H PRN PRN tab 05/18/17 [Rx Confirmed 06/03/17] Albuterol Aerosols [Ventolin Aerosols] 2.5 mg INHALATION UD #120 vial.neb. 05/18/17 [Rx Confirmed 06/03/17] Allopurinol [Zyloprim] 150 mg PO DAILYCM #16 tab 05/18/17 [Rx Confirmed 06/03/17] Cilostazol 50 mg PO BID #15 tab 05/18/17 [Rx Confirmed 06/03/17] Ergocalciferol [Vitamin D] 50,000 unit PO Q7D #12 cap 05/18/17 [Rx Confirmed 06/03/17] Ferrous Sulfate 325 mg PO BIDCM #60 tab 05/18/17 [Rx Confirmed 06/03/17] Finasteride [Proscar] 5 mg PO DAILY #30 tab 05/18/17 [Rx Confirmed 06/03/17] Isosorbide Mononitrate [Imdur] 30 mg PO DAILY #30 tab 05/18/17 [Rx Confirmed 06/03/17] Metoprolol(XL)Succ [Toprol Xl (Beta Vanesa)] 50 mg PO DAILY #30 tab 05/18/17 [Rx Confirmed 06/03/17] Nebulizer [Aeroneb Go Nebulizer] 1 ea MC 4X/DAY #1 ea 05/18/17 [Rx Confirmed 06/03/17] Oxygen, Home [Home Oxygen] 2 - 3 lpm NASAL UD #1 unit 05/18/17 [Rx Confirmed 06/03/17] Pantoprazole Sodium [Protonix] 40 mg PO DAILY #30 tab 05/18/17 [Rx Confirmed 06/03/17] Sodium Bicarbonate 650 mg PO TID #90 tab 05/18/17 [Rx Confirmed 06/03/17] Tamsulosin HCl [Flomax] 0.4 mg PO DAILY@1730 #30 cap 05/18/17 [Rx Confirmed 06/03/17] hydrALAZINE [Apresoline] 25 mg PO TID #90 tab 05/18/17 [Rx Confirmed 06/03/17] [facility] Medical History Acute renal failure superimposed on stage 4 chronic kidney disease (Acute) Radiculopathy affecting upper extremity (Chronic) NSAID long-term use (Chronic) Uncontrolled diabetes mellitus (Chronic) Acute exacerbation of chronic obstructive pulmonary disease (COPD) (Acute) Heme + stool (Acute) Iron deficiency anemia (Chronic) Urinary retention due to benign prostatic hyperplasia (Chronic) Increased PTH level (Chronic) Metabolic acidosis (Acute) Low vitamin D level (Chronic) Paroxysmal atrial fibrillation (Acute) Chronic renal failure, stage 4 (severe) (Chronic) Nocturnal hypoxia (Chronic) Noncompliance with CPAP treatment (Chronic) LADARIUS (obstructive sleep apnea) (Chronic) Acute respiratory failure with hypoxemia (Acute) Influenza B (Acute) Streptococcal pneumonia (Acute) Severe sepsis (Acute) Gout (Chronic) History of tobacco abuse (Chronic) Coronary artery disease (Chronic) Lower GI bleed (Ruled-out) Hypertension (Chronic) Acute kidney injury (Acute) Diabetes mellitus type 2 in obese (Chronic) Non-STEMI (non-ST elevated myocardial infarction) (Acute) Surgical History Hx of CABG (Chronic) S/P removal of lung (Resolved) Family History Father Leukemia Mother COPD (chronic obstructive pulmonary disease) Social History household members: spouse housing: other details: mobile home current occupational status: disabled pets and animals: Yes pets and animals: dog(s) Smoking Status: Former smoker quit date: 02/14/17 pack-years: 40 second hand exposure: No alcohol intake: never substance use type: does not use Review of Systems Const CONSTITUTIONAL: Negative anorexia, body ache, chills, daytime sleepiness, fever(s), night sweats, oral thrush, stops breathing during sleep, weight loss, sleeping in chair, fatigue, weight loss, weight gain, frequent colds, seasonal allergies, other, headache(s) or orthopnea EETM Ear Nose Throat Mouth: Positive hearing normal; negative hard of hearing, hoarseness, dry mouth in morning, change in vision, itchy eyes, eye pain, swallowing Difficulty, ear pain, nose bleed, headache(s), mouth pain, nasal congestion, nasal discharge, post nasal drip, sinus pain, sinus pressure, sore throat or other Cardio Cardiovascular: Negative chest pain, chest pain at rest, chest pain with activity, irregular heart rhythm, edema, shortness of breath when lying down, palpitations, murmur or other Resp Respiratory: Positive as per HPI and shortness of breath shortness of breath: Positive with activity; negative pain with cough, wheezing, chest congestion, cough, chest tightness, pain on inspiration, inhalers, increase use of rescue inhalers, snoring, apnea or other Gastro Gastrointestional: Negative bloody stools, change in appetite, difficulty swallowing, reflux, hematemesis, melena stool, loose stool, constipation or other Genitourinary: Negative blood in urine, nocturia, pain with urination or other Musc Musculoskeletal: Negative body pain, back pain, neck pain or other Skin/Breast Skin/Breast: Negative dry skin, itching, rash, unusual bruising, breast lump or other Neuro Neurological: Negative restless legs, confusion, weakness or other Psych Psychocological: Negative abnormal sleep pattern, anxiety, thoughts of hurting self/others, hopelessness or other Lymph Lymphatic: Negative easy bleeding, easy bruising, swollen lymph nodes or other Exam Const Constitutional: Positive conversant, cooperative, in no acute respiratory distress, well developed, well nourished and good hygiene Head Head: Positive normocephalic and atraumatic; negative cyanosis of lips/distal nose Eyes Eye: Positive clear conjunctiva and nystagmus; negative scleral abnormality Ears Ear: Positive hearing normal and external ears normal; negative hard of hearing Nose Nose: Positive external nose normal and no nasal discharge; negative epistaxis Mouth Mouth: Positive oral mucosae normal, edentulous, no lesions and crowded posterior oropharynx; negative post nasal drip, malodorous breath or oral thrush present Mallampati Score: III: Mallampati Score Neck Neck: Positive normal visual inspection, full ROM, trachea midline, thick neck and male neck greater than 43 cm (17 in); negative lymphadenopathy, JVD or tender Chest Wall Chest: Positive normal inspection of the chest and symmetric chest movement; negative increased A/P diameter Resp lung sounds: Positive diminished, clear to auscultation, prolonged expiratory time and increased work of breathing; negative wheezes, wheeze present on forced exhalation, rhonchi, rales, dullness to percussion or use of accessory muscles Cardio Cardiac: Positive regular rate, regular rhythm, S1 normal and S2 normal; negative murmur GI GI: Positive normal to inspection and normal bowel sounds; negative distended Genitourinary: Positive deferred Musc Musculoskeletal: Positive steady gait and ROM normal; negative kyphosis or scoliosis Skin Pulmonary Skin Exam: Positive intact; negative rash, lesion, ulcers, erythema, scaly or dermal atrophy Pulses Pulse: Yes pulses normal x4 extremities Extremities Extremities: Yes capillary refill normal, Yes clubbing, No cyanosis, Yes edema Location: lower extremity location: Bilateral pitting +1, No stasis dermatitis Neuro Neurologic: Yes conversant, Yes no focal neuro deficits, Yes cooperative, Yes normal cognition, Yes normal coordination, Yes normal concentration, Yes understands questions Lymph Lymphatic: No lymphadenopathy, No tenderness, No cervical adenopathy, No axillary adenopathy Psych Appearance: Positive grossly normal, eye contact and well kempt Mental Status: Positive mental status grossly normal Mood: Positive labile mood Affect: Positive irritable affect Coding Level of Care Code Off vis,est,level 4 Diagnoses Chronic obstructive pulmonary disease, unspecified COPD type J44.9 COPD type: unspecified COPD LADARIUS (obstructive sleep apnea) G47.33 Acute respiratory failure with hypoxemia J96.01 Influenza B J10.1 06/04/17 1640 <Electronically signed by Loan ZHONG> Date Loan ZHONG Cosigner Signature: Date (if applicable) CC: Caesar Chavez DO 12 LEAD ELECTROCARDIOGRAM Observed: 05/26/2017 Status: F Source: [place] 3:30 PM [facility] Cardiovascular Services [address] [place] [id number] 12 Lead EKG 05/14/17 0452 MR#: [id number] Acct: [id number] Name: BARI ROMERO Rep #: [id number] : 1955 61 From: Danis Loza MD Attending Dr: Alena Marcum Status: DIS IN Ordering Dr: Ines May MD Date: 05/14/17 Location: [facility] Sex: M C Admitted: 05/14/17 Test Reason : SOB Blood Pressure : / mmHG Vent. Rate : 149 BPM Atrial Rate : 150 BPM P-R Int : 168 ms QRS Dur : 078 ms QT Int : 256 ms P-R-T Axes : 000 067 081 degrees QTc Int : 403 ms Sinus tachycardia with frequent Premature ventricular complexes Nonspecific ST and T wave abnormality Abnormal ECG When compared with ECG of 25-SEP-2007 07:47, MANUAL COMPARISON REQUIRED, DATA IS UNCONFIRMED Confirmed by DAGO ASIF, DANIS ([id number]), advertising editor KEVIN MORRELL ([id number]) on 05/26/2017 3:30:36 PM Referred By: RADHA Confirmed By:DANIS LOZA MD 05/26/17 1530 Date Danis Loza MD CC: Caesar Chavez DO; Ines May MD Signed DISCHARGE SUMMARY Observed: 05/21/2017 Status: F Source: [place] 8:40 AM [facility] Medical Records Department [address] [place] [id number] Discharge Summary 05/18/17 1724 MR#: [id number] Acct: [id number] Name: BARI ROMERO Rep #: [id number] : 1955 61 From: John Marcum DO PCP: Caesar Chavez DO Status: DIS IN Y Location: [place] [address] Discharge Date and Diagnosis Date of Admission: 05/14/17 Date of Discharge: 05/18/17 - Primary Discharge Diagnosis Active and Suspected Problems Severe sepsis (Acute) Acute respiratory failure with hypoxemia (Acute) Influenza B (Acute) Streptococcal pneumonia (Acute) Acute exacerbation of chronic obstructive pulmonary disease (COPD) (Acute) Acute renal failure superimposed on stage 4 chronic kidney disease (Acute) Paroxysmal atrial fibrillation (Acute) with RVR - converted Heme + stool (Acute) Metabolic acidosis (Acute) Non-STEMI (non-ST elevated myocardial infarction) (Acute) Hyperphosphatemia - Secondary Discharge Diagnosis Chronic Problems Radiculopathy affecting upper extremity (Chronic) - left NSAID long-term use (Chronic) - Meloxicam, Mobic, Motrin and ASA Uncontrolled diabetes mellitus (Chronic) - HGBA1C 9.6 Iron deficiency anemia (Chronic) ferritin is 8 and he has heme + stool Urinary retention due to benign prostatic hyperplasia (Chronic) - started on Flomax and Proscar Increased PTH level (Chronic) - due to CRF stage 4 Low vitamin D level (Chronic) Chronic renal failure, stage 4 (severe) (Chronic) Nocturnal hypoxia (Chronic) Noncompliance with CPAP treatment (Chronic) LADARIUS (obstructive sleep apnea) (Chronic) Gout (Chronic) History of tobacco abuse (Chronic) quit in 2017 Hx of CABG (Chronic) 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 There is NO pneumothorax. Heart is borderline enlarged. Electronically Signed: Ryan Mejia MD at 6:22 EST , Service support , Renal Ultrasound 05/14/17 09:35 IMPRESSION: Normal ultrasound of the kidneys. Electronically Signed: Herbert Carroll MD at 13:09 EST Tel [phone], Service support , Chest X-Ray 05/15/17 05:55 IMPRESSION: There is suboptimal inspiration. There are bibasilar infiltrates greater on the RIGHT. There is a small RIGHT pleural effusion. There is NO pneumothorax. There is borderline enlarged. Electronically Signed: Ryan Mejia MD at 4:30 EST , Service support , Microbiology 05/17/17 06:50 Stool Stool Occult Blood (ИВАН) - Final Occult Blood Positive 05/14/17 08:30 Sputum, Expectorated/Coughed Gram Stain - Final 05/14/17 08:30 Sputum, Expectorated/Coughed Respiratory Culture - Final Streptococcus pneumoniae Mixed Culture 05/14/17 05:50 Blood Culture (Wb) #2 - Anticubital Left Blood Culture - Preliminary No growth in 48 hours. 05/14/17 05:10 Blood Culture (Wb) - Arm Left Blood Culture - Preliminary No growth in 48 hours. 05/14/17 07:50 Mucosa - Nasopharyngeal Respiratory Panel (PCR) - Final Influenzae B 05/14/17 08:30 Urine Catheter - Hoff Legionella Antigen - Final 05/14/17 08:27 Urine Catheter - Hoff Streptococcus pneumoniae Antigen (M - Final 05/14/17 04:58 Mucosa - Nasopharyngeal Influenza Types A,B Direct FA (ИВАН) - Final Laboratory Results - last 24 hr Hgb Hct Sodium Potassium Chloride Carbon Dioxide BUN Creatinine Dr. Jensen Leahy - [facility] Dr. 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 Daysi Magana - Nephrology Operations: None Procedures: 2-D Echocardiogram - EF 65%, stage II diastolic dysfunction Summary of Care Provided: Mr. 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 on 05/14 c/o severe SOB, cough and fever/chills. The cough was productive of clear sputum. He denied N/V/abdominal pain. Denied hx of PUD. He had never had a colonoscopy or a EGD. He was taking Meloxicam QOD and Mobic everyday and ASA. He denied weight loss and also denied FH of colon CA. He did c/o chest pain and numbness in the left arm and this resolved with NTG. Vital signs at presentation to the emergency room were temp 100.9 F, pulse rate 151, blood pressure 185/92, respiratory rate 37 and he was 97% saturated on a 5 L nasal cannula. White blood cell count was 12.9 with 84% neutrophils. Hemoglobin was 6.3 with an MCV of 71.6 and platelets were 407,000. An ABG done on 5 L nasal cannula showed pH 7.32, PCO2 30 and PO2 92. The serum bicarb was low at 19 and the anion gap was 13. BUN was 67 with a creatinine of 3.25 and he denied any history of chronic kidney disease. The blood sugar was 80. Lactic acid was elevated at 2.4 and troponin was elevated at 0.39. BNP was 35.2. EKG showed sinus tachycardia with nonspecific ST and T-wave changes. Chest x-ray was reported as bilateral infiltrates. Influenza swab was negative and respiratory panel and blood cultures were ordered. He was given Zosyn and vancomycin in the emergency room and received 2 L of normal saline. He also received 40 mg of pantoprazole IV, 125 mg Solu-medrol and aerosolized bronchodilators. He was admitted to the ICU and Dr. Barlow was consulted. Dr. Leahy was also consulted. The respiratory panel was positive for Influenza B and he was started on Tamiflu. BIPAP was applied and he tolerated this well and did not require intubation. He was started on Solu-medrol 40 mg Q 6H. The sputum culture was + for Strep pneumoniae even though the urine for streptococcal antigen was negative. He was started on Rocephin. He was seen by Dr. Leahy who recommended transfusing the patient and maintaining a hemoglobin of at least 8. He also recommended continuing baby aspirin but holding Plavix. He had a brief episode of AF that resolved without tx other than ELYTE replacement. Dr. Leahy recommended a Stress test when the respiratory status was optimized to evaluate for any areas of ischemia, particularly of the anterior and lateral territories which is where the previous stents were done. Creat failed to significantly improve with hydration and Dr. Daysi Magana was consulted. She felt he likely had stage 3 progressive diabetic nephropathy with possible acute component and recommended holding the ACEi and NSAID's. The creat did not significantly change until the day of DC and it was 2.6 on that date.....this may be dilutional. Prior to DC he had an overnight trending pulse ox and he dropped to 72% without BIPAP and he was prescribed Nocturnal oxygen at DC. He will not wear the BIPAP because it makes too much noise and he can not sleep. I did recommend to him that he follow up in the office with Dr. Barlow post discharge to order a sleep study and PFT's. He was discharged on 05/18 and given RX's for Augmentin, Prednisone taper, a nebulizer and Albuterol soln, Metoprolol, Oxygen, Tamulosin and Proscar, Vitamin D and a decreased dose of Pletal due to the CRF. He will follow up with Dr. Chavez in the office in 3-5 days, with Dr. Leahy in 2-3 weeks, Dr. Magana in [address] Barlow in 2 weeks. He will discuss a referral for a stress test with Dr. Chavez. This note was generated with [email or web address] dictation software. It may contain incorrect words, spelling, and punctuation that were not noted in checking the note before signing. Discharge Activity: - - Avoid exposure to any strong smells such as bleach, cleaning products, strong colognes or perfumes, paint fumes and smoke of any kind. Avoid sudden exposure to cold air because this can cause bronchospasm. You may want to cover your mouth when you go outside in the winter. Avoid exposure to anyone who is sick with a cough or sore throat. Call your doctor if you observe: Fever of 101 or Higher, Inability to urinate, Inability to have a bowel movement, Shortness of breath, Fainting spells, Swelling in the ankles, Chest pain, - - Call your PCP if severe diarrhea, painful sores in the mouth, painful swallowing, rash or itching. Home Medications: Medications to take at Discharge Albuterol Inhaler [Ventolin Hfa] 1 - 2 puff INHALATION Q6H PRN PRN 05/14/17 Aspirin 81 mg PO DAILY 05/14/17 Clopidogrel Bisulfate [Clopidogrel] 75 mg PO DAILY 05/14/17 Insulin Aspart [Novolog Flexpen] See Protocol SC TIDCM 05/14/17 Insulin Degludec [Tresiba Flextouch U-100] 60 unit SC BID 05/14/17 Lisinopril [Zestril] 40 mg PO DAILY 05/14/17 Nitroglycerin [Nitrostat] 0.4 mg SUBLINGUAL Q5M PRN 05/14/17 Oxycodone [Oxyir] 5 mg PO BID PRN PRN 05/14/17 Simvastatin 80 mg PO QHS 05/14/17 Acetaminophen [Tylenol Tablet] 650 mg PO Q4H PRN PRN tablet 05/18/17 Albuterol Aerosols [Ventolin Aerosols] 2.5 mg INHALATION UD #120 vial.neb. 05/18/17 Allopurinol [Zyloprim] 150 mg PO DAILYCM #16 tablet 05/18/17 Amoxicillin/Potassium Clav [Augmentin 500-125 Tablet] 1 ea PO BID #14 tab 05/18/17 Cilostazol 50 mg PO BID #15 tab 05/18/17 Ergocalciferol [Vitamin D] 50,000 unit PO Q7D #12 cap 05/18/17 Ferrous Sulfate 325 mg PO BIDCM #60 tab 05/18/17 Finasteride [Proscar] 5 mg PO DAILY #30 tab 05/18/17 HydrALAZINE [Apresoline] 25 mg PO TID #90 tab 05/18/17 Isosorbide Mononitrate [Imdur] 30 mg PO DAILY #30 tab 05/18/17 Metoprolol(XL)Succ [Toprol Xl (Beta Vanesa)] 50 mg PO DAILY #30 tab 05/18/17 Nebulizer [Aeroneb Go Nebulizer] 1 ea MC 4X/DAY #1 ea 05/18/17 Oxygen, Home [Home Oxygen] 2 - 3 lpm NASAL UD #1 unit 05/18/17 Pantoprazole Sodium [Protonix] 40 mg PO DAILY #30 tab 05/18/17 Prednisone 10 mg PO UD #30 tab 05/18/17 Sodium Bicarbonate 650 mg PO TID #90 tab 05/18/17 Tamsulosin HCl [Flomax] 0.4 mg PO DAILY@1730 #30 cap 05/18/17 Following Prescrptions Were Given to Patient: Albuterol Aerosols [Ventolin Aerosols] 2.5 mg INHALATION UD #120 vial.neb. Ergocalciferol [Vitamin D] 50,000 unit PO Q7D #12 cap Finasteride [Proscar] 5 mg PO DAILY #30 tab Isosorbide Mononitrate [Imdur] 30 mg PO DAILY #30 tab Metoprolol(XL)Succ [Toprol Xl (Beta Vanesa)] 50 mg PO DAILY #30 tab Oxygen, Home [Home Oxygen] 2 - 3 lpm NASAL UD #1 unit Pantoprazole Sodium [Protonix] 40 mg PO DAILY #30 tab Prednisone 10 mg PO UD #30 tab Tamsulosin HCl [Flomax] 0.4 mg PO DAILY@1730 #30 cap Amoxicillin/Potassium Clav [Augmentin 500-125 Tablet] 1 ea PO BID #14 tab Cilostazol 50 mg PO BID #15 tab Ferrous Sulfate 325 mg PO BIDCM #60 tab HydrALAZINE [Apresoline] 25 mg PO TID #90 tab Sodium Bicarbonate 650 mg PO TID #90 tab Nebulizer [Aeroneb Go Nebulizer] 1 ea 4X/DAY #1 ea Primary Care Physician: Caesar Chavez DO [Primary Care Provider] - Please follow up with your Primary Care Physician in: 3-5 days Please Follow Up With: Jensen Leahy MD When: 2-3 weeks Please Follow Up With: Daysi Magana DO When: 2 weeks Please Follow Up With: Nahun Barlow DO When: 2 weeks with Loan to arrange PFT's and a new sleep study Patient Instructions: What Are Snoring and Sleep Apnea?, Continuous Positive Air Pressure (CPAP) Disposition: Home Minutes spent on discharge:: 40 Patient Condition:: Stable Meaningful Use Info Meaningful Use Diagnoses (Choose all that apply): AMI - AMI Aspirin given w/in 24hrs of arrival?: Yes ASA at discharge?: Yes Statins at discharge?: Yes Shar/ARB at discharge?: Yes Beta Vanesa at discharge?: Yes Done w/ Acute CA measure.: Yes Code Visit Inpatient ALEXANDRA: [id number] Disch Hosp 05/21/17 0840 <Electronically signed by John Marcum DO> Date M Uriel Marcum DO Cosigner Signature (if applicable): Date CC: Alena Marcum; Caesar Chavez DO; Daysi Magana DO; Jensen Leahy MD; Nahun Barlow D.O. Signed DISCHARGE INSTRUCTION Observed: 05/18/2017 Status: F Source: [place] 5:24 PM [facility] Medical Records Department [address] [place] [address] Instructions for Home/Discharge Instructions 05/18/17 1649 MR#: [id number] Acct: [id number] Name: BARI ROMERO Rep #: [id number] : 1955 61 From: John Marcum DO PCP: Caesar Chavez DO Status: ADM IN 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) 12/01/09 Lower GI bleed (Acute) Acute hypoxic respiratory failure (Acute) Chronic left upper extremity numbness (Chronic) Hypertension (Chronic) Acute kidney injury (Acute) Diabetes mellitus type 2 in obese (Chronic) Non-STEMI (non-ST elevated myocardial infarction) (Acute) You will use the following diet at home:: Calorie/Carbohydrate Controlled (specify 1200, 1400, etc), Cardiac Your food should be the consistency of: Regular Your liquids should be the consistency of: Regular/Thin Discharge Activity: - - Avoid exposure to any strong smells such as bleach, cleaning products, strong colognes or perfumes, paint fumes and smoke of any kind. Avoid sudden exposure to cold air because this can cause bronchospasm. You may want to cover your mouth when you go outside in the winter. Avoid exposure to anyone who is sick with a cough or sore throat. Call your doctor if you observe: Fever of 101 or Higher, Inability to urinate, Inability to have a bowel movement, Shortness of breath, Fainting spells, Swelling in the ankles, Chest pain, - - Call your PCP if severe diarrhea, painful sores in the mouth, painful swallowing, rash or itching. Instructions: Continuous Positive Air Pressure (CPAP), What Are Snoring and Sleep Apnea? Additional Instructions: You have a lot of Health problems. Quitting smoking was a great idea! Good work! The CPAP is VERY Important. You would be much better if you wore it. Your oxygen drops very low at night when you are not on the CPAP and this can lead to a sudden cardiac from a fatal dysrhythmia. It is also associated with being sleepy all the time, poor memory, restless leg, high BP's in the lungs etc. I think you should follow up with Dr. Barlow in the office......if you work together with him he may be able to find a machine that works for you and if you wear the CPAP we may be able to give you something to help you sleep with the CPAP on. You will need to wear the oxygen ANYTIME you are sleeping. I am also prescribing an aerosol machine for you to use 3-4 times a day every day to help with the breathing. Keep up your efforts to improve your diet and get your blood sugars under control. You had a small heart attack and you need to get a stress test done when your breathing is better. I am going to have you follow up with Dr. Leahy in the office in [address] Chavez could also order a stress test if you prefer to follow up with him. Your kidneys are not working well. There are 5 stages of kidney failure and you are in stage 4. I think you should follow up with Dr. Magana, the kidney specialist you saw in the hospital. We decreased the dose of some of the medications you were taking because of the kidney failure. You have blood in your bowel movements....possibly due to all the Meloxicam and Mobic and Motrin and aspirin. I think you need to have someone look in your colon and your stomach to see wear the blood loss is coming from. Dr. Chavez can refer you to someone to do this. You need to start thinking about whether you would ever want to have a tube down your throat and be put on a machine to breath for you......you almost had to have that this time and it will happen in the future, melissa if you continue not to wear the CPAP. You may want to have a discussion with Dr. Leal about code Status....this is what you would want done in the event that you stopped breathing or you had a cardiac arrest. Pending Tests on Discharge: none Allergies/Adverse Reactions: Allergies No Known Allergies Allergy (Verified 05/14/17 05:00) Medications to take at Discharge Albuterol Inhaler [Ventolin Hfa] 1 - 2 puff INHALATION Q6H PRN PRN 05/14/17 Aspirin 81 mg PO DAILY 05/14/17 Clopidogrel Bisulfate [Clopidogrel] 75 mg PO DAILY 05/14/17 Insulin Aspart [Novolog Flexpen] See Protocol SC TIDCM 05/14/17 Insulin Degludec [Tresiba Flextouch U-100] 60 unit SC BID 05/14/17 Lisinopril [Zestril] 40 mg PO DAILY 05/14/17 Nitroglycerin [Nitrostat] 0.4 mg SUBLINGUAL Q5M PRN 05/14/17 Oxycodone [Oxyir] 5 mg PO BID PRN PRN 05/14/17 Simvastatin 80 mg PO QHS 05/14/17 Acetaminophen [Tylenol Tablet] 650 mg PO Q4H PRN PRN tablet 05/18/17 Albuterol Aerosols [Ventolin Aerosols] 2.5 mg INHALATION UD #120 vial.neb. 05/18/17 Allopurinol [Zyloprim] 150 mg PO DAILYCM #16 tablet 05/18/17 Amoxicillin/Potassium Clav [Augmentin 500-125 Tablet] 1 ea PO BID #14 tab 05/18/17 Cilostazol 50 mg PO BID #15 tab 05/18/17 Ergocalciferol [Vitamin D] 50,000 unit PO Q7D #12 cap 05/18/17 Finasteride [Proscar] 5 mg PO DAILY #30 tab 05/18/17 HydrALAZINE [Apresoline] 25 mg PO TID #90 tab 05/18/17 Isosorbide Mononitrate [Imdur] 30 mg PO DAILY #30 tab 05/18/17 Metoprolol(XL)Succ [Toprol Xl (Beta Vanesa)] 50 mg PO DAILY #30 tab 05/18/17 Nebulizer [Aeroneb Go Nebulizer] 1 ea MC 4X/DAY #1 ea 05/18/17 Oxygen, Home [Home Oxygen] 2 - 3 lpm NASAL UD #1 unit 05/18/17 Pantoprazole Sodium [Protonix] 40 mg PO DAILY #30 tab 05/18/17 Prednisone 10 mg PO UD #30 tab 05/18/17 Sodium Bicarbonate 650 mg PO TID #90 tab 05/18/17 Tamsulosin HCl [Flomax] 0.4 mg PO DAILY@1730 #30 cap 05/18/17 The following prescriptions were given: Albuterol Aerosols [Ventolin Aerosols] 2.5 mg INHALATION UD #120 vial.neb. Ergocalciferol [Vitamin D] 50,000 unit PO Q7D #12 cap Finasteride [Proscar] 5 mg PO DAILY #30 tab Isosorbide Mononitrate [Imdur] 30 mg PO DAILY #30 tab Metoprolol(XL)Succ [Toprol Xl (Beta Vanesa)] 50 mg PO DAILY #30 tab Oxygen, Home [Home Oxygen] 2 - 3 lpm NASAL UD #1 unit Pantoprazole Sodium [Protonix] 40 mg PO DAILY #30 tab Prednisone 10 mg PO UD #30 tab Tamsulosin HCl [Flomax] 0.4 mg PO DAILY@1730 #30 cap Amoxicillin/Potassium Clav [Augmentin 500-125 Tablet] 1 ea PO BID #14 tab Cilostazol 50 mg PO BID #15 tab HydrALAZINE [Apresoline] 25 mg PO TID #90 tab Sodium Bicarbonate 650 mg PO TID #90 tab Nebulizer [Aeroneb Go Nebulizer] 1 ea MC 4X/DAY #1 ea Primary Care Physician: Caesar Chavez DO [Primary Care Provider] - Please follow up with your Primary Care Physician in: 3-5 days Please Follow Up With: Jensen Leahy MD When: 2-3 weeks Please Follow Up With: Daysi Magana DO When: 2 weeks Please Follow Up With: Nahun Barlow DO When: 2 weeks with Loan to arrange PFT's and a new sleep study Proposed Discharge Date: 05/18/17 05/18/171723 <Electronically signed by John Marcum DO> Date John Marcum DO CC: Caesar Chavez DO; Daysi Magana DO; Jensen Leahy MD; Nahun Barlow D.O. BEDSIDE GLUCOSE Collected: 05/18/2017 Status: F Source: MALIK 4:50 PM [facility] REPOSITORY TYPE CODE TESTS RESULT OUT OF RANGE REFERENCE UNITS LAB L501.080 70-110 mg/dL Normal BEDSIDE GLU 71 Result Comment: MANAGEMENT OF PATIENT CARE PER NURSING PROTOCOL Performed By: #### L501.080 #### [facility] Point of Care [address] [place] [address] BEDSIDE GLUCOSE Collected: 05/18/2017 Status: F Source: MALIK 11:36 AM [facility] REPOSITORY TYPE CODE TESTS RESULT OUT OF REFERENCE UNITS RANGE LAB L501.080 70-110 mg/dL High BEDSIDE GLU 123 Result Comment: MANAGEMENT OF PATIENT CARE PER NURSING PROTOCOL Performed By: #### L501.080 #### [facility] Point of Care [address] [place] [address] BEDSIDE GLUCOSE Collected: 05/18/2017 Status: F Source: MALIK 6:49 AM [facility] REPOSITORY TYPE CODE TESTS RESULT OUT OF REFERENCE UNITS RANGE LAB L501.080 70-110 mg/dL High BEDSIDE GLU 112 Result Comment: MANAGEMENT OF PATIENT CARE PER NURSING PROTOCOL Performed By: #### L501.080 #### [facility] Point of Care [address] [place], [place] [address] HH, HEMOGLOBIN AND Collected: 05/18/2017 Status: F Source: [place] HEMATOCRIT 6:07 AM [facility] REPOSITORY TYPE CODE TESTS RESULT OUT OF RANGE REFERENCE UNITS LAB L100.1300 13.0-16.5 g/dl Low HGB 9.0 LAB L100.1400 40-54 % Low HCT 30.0 Performed By: #### L100.0600 #### [facility] [address] [facility] [place], [address] RENAL PROFILE Collected: 05/18/2017 Status: F Source: [place] 6:07 AM [facility] REPOSITORY TYPE CODE TESTS RESULT OUT OF RANGE REFERENCE UNITS LAB L501.0100 74-106 mg/dL Normal GLU 104 Result Comment: Fasting Glucose result from 100 to 125 mg/dL suggests IMPAIRED HOMEOSTASIS per A.D.A. criteria. Please note revised GLUCOSE reference range effective 2017. LAB L501.1000 7-18 mg/dL High BUN 77 LAB L501.1100 0.70-1.30 mg/dL High CREAT,SERUM 2.60 Result Comment: The validity of the calculated GFR AND GFRAA in patients over 70 years has not been determined. Clinical correlation is essential. LAB L501.1110 >60 mL/min Low EST GFR 27 Result Comment: Non- GFR Calc LAB L501.1115 >60 mL/min Low EST GFR - AA 32 Result Comment: GFR Calc LAB L501.1255 ml/min Normal Estimated CRCL 33.29 LAB L501.1300 10-20 RATIO High BUN/CRE 29.6 LAB L501.1800 3.2-5. g/dL Low 0 ALB 2.5 LAB L501.2200 8.5-10 mg/dL Low .1 CA 7.6 LAB L501.2300 2.5-4. mg/dL Normal 9 PHOS 3.9 LAB L501.5300 136-14 mmol/L Normal 5 NA 142 LAB L501.5600 3.5-5. mmol/L Normal 1 K 4.4 LAB L501.5900 98-107 mmol/L High CL 110 LAB L501.6100 21.0-3 mmol/L Normal 2.0 CO2 22.0 Performed By: #### L500.3600 #### [facility] [address] [facility] [address] BEDSIDE GLUCOSE Collected: 05/17/2017 Status: F Source: MALIK 10:25 PM [facility] REPOSITORY TYPE CODE TESTS RESULT OUT OF REFERENCE UNITS RANGE LAB L501.080 70-110 mg/dL High BEDSIDE GLU 245 Result Comment: MANAGEMENT OF PATIENT CARE PER NURSING PROTOCOL Performed By: #### L501.080 #### [facility] Point of Care [address] [place] [address] BEDSIDE GLUCOSE Collected: 05/17/2017 Status: F Source: MALIK 4:14 PM [facility] REPOSITORY TYPE CODE TESTS RESULT OUT OF REFERENCE UNITS RANGE LAB L501.080 70-110 mg/dL High BEDSIDE GLU 291 Result Comment: MANAGEMENT OF PATIENT CARE PER NURSING PROTOCOL Performed By: #### L501.080 #### [facility] Point of Care [address] [place] [address] BEDSIDE GLUCOSE Collected: 05/17/2017 Status: F Source: MALIK 11:19 AM [facility] REPOSITORY TYPE CODE TESTS RESULT OUT OF REFERENCE UNITS RANGE LAB L501.080 70-110 mg/dL High BEDSIDE GLU 306 Result Comment: MANAGEMENT OF PATIENT CARE PER NURSING PROTOCOL Performed By: #### L501.080 #### [facility] Point of Care [address] [place] [address] HH, HEMOGLOBIN AND Collected: 05/17/2017 Status: F Source: [place] HEMATOCRIT 8:12 AM [facility] REPOSITORY TYPE CODE TESTS RESULT OUT OF RANGE REFERENCE UNITS LAB L100.1300 13.0-16.5 g/dl Low HGB 9.8 LAB L100.1400 40-54 % Low HCT 32.7 Performed By: #### L100.0600 #### [facility] [address] [place], [address] BASIC METABOLIC Collected: 05/17/2017 Status: F Source: [place] PROFILE (BMP) 8:12 AM [facility] REPOSITORY TYPE CODE TESTS RESULT OUT OF RANGE REFERENCE UNITS LAB L501.0100 74-106 mg/dL High GLU 355 Result Comment: Glucose result greater than or equal to 200 mg/dL suggests DIABETES MELLITUS per A.D.A. criteria. Please note revised GLUCOSE reference range effective 2017. LAB L501.1000 7-18 mg/dL High BUN 87 LAB L501.1100 0.70-1.30 mg/dL High CREAT,SERUM 3.50 Result Comment: The validity of the calculated GFR AND GFRAA in patients over 70 years has not been determined. Clinical correlation is essential. LAB L501.1110 >60 mL/min Low EST GFR 19 Result Comment: Non- GFR Calc LAB L501.1115 >60 mL/min Low EST GFR - AA 23 Result Comment: GFR Calc LAB L501.1255 ml/min Normal Estimated CRCL 24.73 LAB L501.1300 10-20 RATIO High BUN/CRE 24.9 LAB L501.2200 8.5-10 mg/dL Low .1 CA 8.0 LAB L501.5300 136-14 mmol/L Low 5 NA 135 LAB L501.5600 3.5-5. mmol/L High 1 K 5.5 LAB L501.5900 98-107 mmol/L Normal CL 105 LAB L501.6100 21.0-3 mmol/L Low 2.0 CO2 19.0 LAB L501.6200 5-15 Normal GAP 11 Performed By: #### L500.2500, L500.4100, L501.2300 #### [facility] [address] [place], [address] LIPID PROFILE Collected: 05/17/2017 Status: F Source: MALIK 8:12 AM [facility] REPOSITORY TYPE CODE TESTS RESULT OUT OF RANGE REFERENCE UNITS LAB L501.4900 200 mg/dL Normal CHOL 114 Result Comment: <200 mg/dL Desirable 200-240 mg/dL Borderline >240 mg/dL High Risk LAB L501.5000 mg/dL High TRIG 279 Result Comment: The drugs N-Acetylcysteine and Metamizole may falsely depress this assay. Serum Triglycerides Reference Interval Normal <150 mg/dL Borderline high 150 - 199 mg/dL High 200 - 499 mg/dL Very High > or = 500 mg/dL LAB L501.6400 mg/dL Low HDL 37 Result Comment: The drugs N-Acetylcysteine and Metamizole may falsely depress this assay. Reference Range HDL <40 mg/dL Low HDL Cholesterol HDL >or= 60 mg/dL High HDL Cholesterol LAB L501.6500 0-130 mg/dL Normal LDL 21 LAB L501.6600 5-40 mg/dL High VLDL 56 Performed By: #### L500.2500, L500.4100, L501.2300 #### [facility] [address] [place], [address] PHOSPHORUS Collected: 05/17/2017 Status: F Source: MALIK 8:12 AM [facility] REPOSITORY TYPE CODE TESTS RESULT OUT OF RANGE REFERENCE UNITS LAB L501.2300 2.5-4.9 mg/dL Normal PHOS 4.0 Performed By: #### L500.2500, L500.4100, L501.2300 #### [facility] [address] [place], [address] BEDSIDE GLUCOSE Collected: 05/17/2017 Status: F Source: [place]IK 6:53 AM [facility] REPOSITORY TYPE CODE TESTS RESULT OUT OF REFERENCE UNITS RANGE LAB L501.080 70-110 mg/dL High BEDSIDE GLU 386 Result Comment: MANAGEMENT OF PATIENT CARE PER NURSING PROTOCOL Performed By: #### L501.080 #### [facility] Point of Care [address] [place] [address] Observed: 05/17/2017 Status: F Source: [place] STOOL OCCULT BLOOD 6:50 AM [facility] IFOB REPOSITORY STOB iFOB Normal Reference Range = Negative Occult Blood Positive ORGANISM 1: OCCULT BLOOD POSITIVE Performed By: #### M100.7900 #### [facility] [address] [place], [address] BEDSIDE GLUCOSE Collected: 05/16/2017 Status: F Source: MALIK 9:16 PM [facility] REPOSITORY TYPE CODE TESTS RESULT OUT OF REFERENCE UNITS RANGE LAB L501.080 70-110 mg/dL High alert BEDSIDE GLU > 500 Result Comment: Dr Escobar Followed MANAGEMENT OF PATIENT CARE PER NURSING PROTOCOL Performed By: #### L501.080 #### [facility] Point of Care [address] [place], [place] [address] BEDSIDE GLUCOSE Collected: 05/16/2017 Status: F Source: MALIK 9:15 PM [facility] REPOSITORY TYPE CODE TESTS RESULT OUT OF REFERENCE UNITS RANGE LAB L501.080 70-110 mg/dL High alert BEDSIDE GLU > 500 Result Comment: Repeat Test MANAGEMENT OF PATIENT CARE PER NURSING PROTOCOL Performed By: #### L501.080 #### [facility] Point of Care [address] [place] [address] PROTEIN, URINE 24HR Collected: 05/16/2017 Status: F Source: MALIK 6:28 PM [facility] REPOSITORY TYPE CODE TESTS RESULT OUT OF RANGE REFERENCE UNITS LAB L501.1850 24.0 HOURS Normal UR COLLECT 24.0 TIME LAB L501.1875 mL Normal UR TOTAL 2225 VOLUME LAB L501.1900 <11.9 mg/dL High URINE PROTEIN 52.3 LAB L501.1925 <150 MG/24HR mg/24HR High 24hr UR 1163.7 PROTEIN Performed By: #### L500.9000 #### [facility] [address] [place], [place], [address] 24 HR UR CREATININE Collected: 05/16/2017 Status: F Source: [place] CLEARANCE 6:28 PM [facility] REPOSITORY TYPE CODE TESTS RESULT OUT OF RANGE REFERENCE UNITS LAB L501.0050 24.0 HOURS Normal UR COLLECT 24.0 TIME LAB L501.0075 mL Normal UR TOTAL 2225 VOLUME LAB L501.1050 0.8-1.3 mg/dL High SERUM CREAT 3.7 LAB L501.1110 >60 mL/min Low EST GFR 18 Result Comment: Non- GFR Calc LAB L501.1115 >60 mL/min Low EST GFR - AA 22 Result Comment: GFR Calc LAB L501.1150 NO RANGE mg/dL EST. URINE Normal CREAT 71.4 LAB L501.1250 100-200 ml/min Low CREAT CLEARANCE 30 Performed By: #### L500.4507 #### [facility] [address] [place], [address] BEDSIDE GLUCOSE Collected: 05/16/2017 Status: F Source: MALIK 4:52 PM [facility] REPOSITORY TYPE CODE TESTS RESULT OUT OF REFERENCE UNITS RANGE LAB L501.080 70-110 mg/dL High alert BEDSIDE GLU 470 Result Comment: MANAGEMENT OF PATIENT CARE PER NURSING PROTOCOL Performed By: #### L501.080 #### [facility] Point of Care [address] [place] [address] BEDSIDE GLUCOSE Collected: 05/16/2017 Status: F Source: MALIK 11:40 AM [facility] REPOSITORY TYPE CODE TESTS RESULT OUT OF REFERENCE UNITS RANGE LAB L501.080 70-110 mg/dL High alert BEDSIDE GLU 474 Result Comment: Dr Escobar Followed MANAGEMENT OF PATIENT CARE PER NURSING PROTOCOL Performed By: #### L501.080 #### [facility] Point of Care [address] [place] [address] BEDSIDE GLUCOSE Collected: 05/16/2017 Status: F Source: MALIK 6:59 AM [facility] REPOSITORY TYPE CODE TESTS RESULT OUT OF REFERENCE UNITS RANGE LAB L501.080 70-110 mg/dL High BEDSIDE GLU 423 Result Comment: MANAGEMENT OF PATIENT CARE PER NURSING PROTOCOL Performed By: #### L501.080 #### [facility] Point of Care [address] [place] [address] BASIC METABOLIC Collected: 05/16/2017 Status: F Source: [place] PROFILE (BMP) 5:30 AM [facility] REPOSITORY TYPE CODE TESTS RESULT OUT OF RANGE REFERENCE UNITS LAB L501.0100 74-106 mg/dL High GLU 440 Result Comment: Glucose result greater than or equal to 200 mg/dL suggests DIABETES MELLITUS per A.D.A. criteria. Please note revised GLUCOSE reference range effective 2017. LAB L501.1000 7-18 mg/dL High BUN 90 LAB L501.1100 0.70-1.30 mg/dL High CREAT,SERUM 3.67 Result Comment: The validity of the calculated GFR AND GFRAA in patients over 70 years has not been determined. Clinical correlation is essential. LAB L501.1110 >60 mL/min Low EST GFR 18 Result Comment: Non- GFR Calc LAB L501.1115 >60 mL/min Low EST GFR - AA 22 Result Comment: GFR Calc LAB L501.1255 ml/min Normal Estimated CRCL 23.59 LAB L501.1300 10-20 RATIO High BUN/CRE 24.5 LAB L501.2200 8.5-10 mg/dL Low .1 CA 7.7 LAB L501.5300 136-14 mmol/L Low 5 NA 132 LAB L501.5600 3.5-5. mmol/L High 1 K 5.3 LAB L501.5900 98-107 mmol/L Normal CL 105 LAB L501.6100 21.0-3 mmol/L Low 2.0 CO2 16.0 LAB L501.6200 5-15 Normal GAP 11 Performed By: #### L500.2500, L501.2300, L501.5200 #### [facility] [address] [place], [place], [address] PHOSPHORUS Collected: 05/16/2017 Status: F Source: [place] 5:30 AM [facility] REPOSITORY TYPE CODE TESTS RESULT OUT OF RANGE REFERENCE UNITS LAB L501.2300 2.5-4.9 mg/dL High PHOS 5.5 Performed By: #### L500.2500, L501.2300, L501.5200 #### [facility] [address] [place], [place], [address] MAGNESIUM Collected: 05/16/2017 Status: F Source: [place] 5:30 AM [facility] REPOSITORY TYPE CODE TESTS RESULT OUT OF RANGE REFERENCE UNITS LAB L501.5200 1.6-2.6 mg/dL High MG 2.8 Result Comment: Please note revised Magnesium reference range effective 2017. Performed By: #### L500.2500, L501.2300, L501.5200 #### [facility] [address] [place], [address] CBC-COMPLETE BLOOD CNT Collected: 05/16/2017 Status: F Source: [place] NO DIFF 5:30 AM [facility] REPOSITORY TYPE CODE TESTS RESULT OUT OF RANGE REFERENCE UNITS LAB L100.1000 4.4-11.0 K/mm3 High WBC 14.7 LAB L100.1200 4.6-6.2 M/mm3 Low RBC 3.61 LAB L100.1300 13.0-16.5 g/dl Low HGB 8.1 LAB L100.1400 40-54 % Low HCT 27.4 LAB L100.1500 80-94 fL Low MCV 75.9 LAB L100.1600 27.0-32.0 pg Low MCH 22.4 LAB L100.1700 32-36 g/gl Low MCHC 29.6 LAB L100.1810 11.6-14.6 % High RDW CV 20.7 LAB L100.1820 35.1-43.9 fl High RDW SD 57.0 LAB L100.1900 150-450 K/mm3 Normal PLT 220 Performed By: #### L100.0500, L100.4500 #### [facility] [address] [place], [place], [id number] DIFFERENTIAL COMMENT Collected: 05/16/2017 Status: F Source: [place]IK 5:30 AM [facility] REPOSITORY TYPE CODE TESTS RESULT OUT OF RANGE REFERENCE UNITS LAB L100.4500 Normal SMEAR COMMENT SCAN Result Comment: ANISOCYTOSIS 1+ HYPOCHROMIA 1+ POLYCHROMIA 1+ MICROCHROMIA 1+ Performed By: #### L100.0500, L100.4500 #### [facility] [address] [place], [address] BEDSIDE GLUCOSE Collected: 05/15/2017 Status: F Source: MALIK 10:32 PM [facility] REPOSITORY TYPE CODE TESTS RESULT OUT OF REFERENCE UNITS RANGE LAB L501.080 70-110 mg/dL High alert BEDSIDE GLU 466 Result Comment: Dr Escobar Followed MANAGEMENT OF PATIENT CARE PER NURSING PROTOCOL Performed By: #### L501.080 #### [facility] Point of Care [address] [place] [address] BEDSIDE GLUCOSE Collected: 05/15/2017 Status: F Source: MALIK 10:31 PM [facility] REPOSITORY TYPE CODE TESTS RESULT OUT OF REFERENCE UNITS RANGE LAB L501.080 70-110 mg/dL High alert BEDSIDE GLU 477 Result Comment: Repeat Test MANAGEMENT OF PATIENT CARE PER NURSING PROTOCOL Performed By: #### L501.080 #### [facility] Point of Care [address] [place] [address] BEDSIDE GLUCOSE Collected: 05/15/2017 Status: F Source: MALIK 4:50 PM [facility] REPOSITORY TYPE CODE TESTS RESULT OUT OF REFERENCE UNITS RANGE LAB L501.080 70-110 mg/dL High BEDSIDE GLU 414 Result Comment: MANAGEMENT OF PATIENT CARE PER NURSING PROTOCOL Performed By: #### L501.080 #### [facility] Point of Care [address] [place] [address] CBC W/DIFF, AUTOMATED Collected: 05/15/2017 Status: F Source: MALIK 11:45 AM [facility] REPOSITORY TYPE CODE TESTS RESULT OUT OF RANGE REFERENCE UNITS LAB L100.1000 4.4-11.0 K/mm3 High 20.6 WBC LAB L100.1200 4.6-6.2 M/mm3 Low 3.60 RBC LAB L100.1300 13.0-16.5 g/dl Low 8.2 HGB LAB L100.1400 40-54 % Low 27.0 HCT LAB L100.1500 80-94 fL Low 75.0 MCV LAB L100.1600 27.0-32.0 pg Low 22.8 MCH LAB L100.1700 32-36 g/gl Low 30.4 MCHC LAB L100.1810 11.6-14.6 % High 20.2 RDW CV LAB L100.1820 35.1-43.9 fl High 55.3 RDW SD LAB L100.1900 150-450 K/mm3 225 Normal PLT LAB L100.2000 6.2-12.0 fl Test Normal MPV not performed LAB L100.2100 47-70 % High 95.4 NEUT% LAB L100.2200 19-41 % Low 3.0 LY% LAB L100.2300 0-10 % 1.5 Normal MONO% LAB L100.2400 0-5 % 0.0 Normal EO% LAB L100.2500 0-1 % 0.0 Normal BASO% LAB L100.2550 0.0-0.9 % 0.100 Normal IM GRAN % Result Comment: IG% - Immature Granulocytes (promyelocytes, myelocytes and metamyelocytes) > 1% indicates that a LEFT SHIFT is Present. LAB L100.2620 2.0-7.7 X10 3/uL Absolute Neut High 19.7 LAB L100.2720 0.83-4.51 X10 3/ul Low Absolute Lymph 0.61 LAB L100.5500 ADEQ PLT EST Normal ADEQUATE LAB L100.7300 ANISO Normal 1+ LAB L100.7600 HYPOCHROMASIA Normal 2+ Performed By: #### L100.0100, L100.4425 #### [facility] [address] [facility] [place], [address] NRBC PANEL Collected: 05/15/2017 Status: F Source: [place] 11:45 AM [facility] REPOSITORY TYPE CODE TESTS RESULT OUT OF RANGE REFERENCE UNITS LAB L100.4450 0-5 % Normal NRBC, FLAGGED 0.3 LAB L100.4455 0-5 10 3/uL Normal NRBC # 0.07 Performed By: #### L100.0100, L100.4425 #### [facility] [address] [facility] [place], [address] CONSULTATION Observed: 05/15/2017 Status: F Source: [place] 11:39 [facility] REPOSITORY [facility] Medical Records Department [address] [place] [address] Consultation 05/14/17 0711 MR#: [id number] Acct: [id number] Name: BARI ROMERO Rep #: [id number] : 1955 61 From: Nahun Barlow DO PCP: Caesar Chavez DO Status: ADM IN Y Location: ICU ICU06-1 Reason for Consult Date of Consultation: 05/14/17 Reason for Consultation: Sepsis/acute respiratory failure History of Present Illness: Patient is a 61-year-old male, with a history as outlined below, who presented to the emergency department on May 14 with complaints of progressive shortness of breath and cough of approximately 3-4 days duration. The patient does have a reported history of COPD and obstructive sleep apnea, having been evaluated by Dr. Fung previously. The patient does not have a baseline supplemental oxygen requirement, per his account. It is unclear as to whether he has ever had pulmonary function testing completed previously. He has been noncompliant with use of nocturnal CPAP for approximately 3 years. He does have a smoking history of 1 pack per day 45 years, having quit completely 5 months ago. The patient's cough is essentially been nonproductive in nature. He also reports the presence of dark, melanotic stools over the last 2-3 days. He does not recall ever having had a colonoscopy previously. He does not report high NSAID utilization in his home environment. However, it does appear that he is prescribed Mobic on an outpatient basis. The patient also has coronary artery disease and peripheral vascular disease, for which he is prescribed Plavix, aspirin and Cilostazol. On presentation to the emergency department, the patient was noted to be febrile, tachycardic and hypertensive. He was tachypneic with respiratory rates in the 30s and requiring 5 L/min of supplemental oxygen. Laboratory evaluation revealed elevated white blood cell count 13,000. He was also anemic with a hemoglobin of 6.3 and microcytic blood indices. Chemistry profile revealed evidence of questionable acute kidney injury with a creatinine of 3.25 and a serum bicarbonate level of 19. Serum lactate was mildly elevated to 2.4. Troponin was increased to 0.39. ABG obtained on 5 L/min of supplemental oxygen revealed a pH of 7.32 with a PCO2 of 30 and PO2 of 92. Plain film chest x-ray revealed evidence of bibasilar infiltrates and small bilateral pleural effusions. The patient was started on aerosol treatments along with broad-spectrum antibiotics. A type and screen was sent and the patient was ordered 2 units of packed red blood cells. The patient was initially started on BiPAP therapy due to work of breathing. He was subsequently transferred to the medical intensive care unit for ongoing management. Past Medical History Past Medical History (Chronic Problems): Chronic Problems Hypertension (Chronic) Diabetes mellitus type 2 in obese (Chronic) Allergies No Known Allergies Allergy (Verified 05/14/17 05:00) Home Medications: Ambulatory Orders Medication Instructions Recorded Albuterol Inhaler [Ventolin Hfa 1 - 2 puff INHALATION Q6H PRN PRN 05/14/17 Smoking Status: Former smoker - *Family History Maternal History Items: COPD Paternal History Items: Cancer - leukemia, Hypertension Review of Systems Constitutional: Denies: Chills, Fever Eyes: Denies: Blurred vision, Double vision HEENT: Denies: Head Aches, Sinus Congestion, Sinus Drainage Cardiovascular: Denies: Chest Pain, Palpitations Respiratory: Reports: Cough, Shortness of Breath. Denies: Sputum production Gastrointestinal: Reports: Abdominal Pain, Diarrhea, Melena. 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 - Physical Exam General: Alert, Cooperative, - - Mildly distressed on BIPAP HEENT: Atraumatic, PERRLA, Normocephalic Oral: Dry Mucosa Neck: Supple, No Nodes, Trachea Midline Lungs: Diminished, Rhonchi, Short of Breath, Tachypneic, - - Conversational dyspnea is present. Cardiovascular: Normal S1, Normal S2, No murmurs, No rub noted, No Gallop, Tachycardic Abdomen: Soft, Non Tender, Hypoactive Bowel Sounds, Obese Extremities: No clubbing, No cyanosis, Diminished Peripheral Pulses, Edema Skin: No rashes, No breakdown Musculoskeletal: No Muscle Wasting Lymphatic: No Cervical, Supraclavicular, or Inguinal Adenopathy Neurological: Neuro grossly intact Psych/Mental Status: Normal Affect, Appropriate Vital Signs Temp Pulse Resp BP Pulse Ox 100.9 F H 141 H 36 H 129/70 H 99 05/14/17 06:35 05/14/17 06:35 05/14/17 06:35 05/14/17 06:35 05/14/17 06:35 Labs (Last 48 Hours) WBC 12.9 H RBC 3.17 L WBC RBC Hgb Hct MCV MCH MCHC RDW RDW Differential Plt Count Microbiology 05/14/17 04:58 Mucosa - Nasopharyngeal Influenza Types A,B Direct FA ([facility]) - Final Clinical Impression(s) from Imaging Studies Chest X-Ray 05/14/17 04:53 IMPRESSION: There is suboptimal inspiration There are bibasilar infiltrates and small effusions larger on the RIGHT. There is NO pneumothorax. Heart is borderline enlarged. Electronically Signed: Ryan Mejia MD at 6:22 EST , Service support , Assessment/Plan Active and Suspected Problems Coronary artery disease (Acute) COPD with severe acute bronchitis (Acute) Acute on chronic blood loss anemia (Acute) Benign lung tumor s/p right lobectomy (Acute) Lower GI bleed (Acute) Acute hypoxic respiratory failure (Acute) Chronic left upper extremity numbness (Acute) Acute kidney injury (Acute) Non-STEMI (non-ST elevated myocardial infarction) (Acute) RECOMMENDATIONS: 1. Agree with transfusion of 2 units of packed red blood cells. Check H AND H posttransfusion. 2. Continue PPI twice daily 3. Continue to trend troponins. Obtain echocardiogram and cardiology consultation. 4. Hold aspirin, Plavix and NSAIDs. 5. Continue broad-spectrum antibiotics, pending infectious workup. 6. Continue scheduled aerosol treatments. 7. Start IV Solu-Medrol 40 mg every 6 hours. 8. Start sliding scale insulin coverage and Accu-Cheks every 6 hours. 9. Continue BiPAP as tolerated. Repeat arterial blood gas. IMPRESSIONS: 1. Severe sepsis secondary to community-acquired pneumonia The patient has been adequately volume resuscitated at this time. Lactate is downtrending. Continue broad-spectrum antibiotics, pending infectious workup. Check strep and urine Legionella antigens. Obtain and send sputum for culture. Send full respiratory viral panel along with blood cultures. 2. Acute hypoxemic respiratory failure/questionable COPD with exacerbation Continue BiPAP therapy as tolerated. Obtain repeat arterial blood gas accordingly. Continue scheduled aerosol treatments and IV Solu-Medrol 40 mg every 6 hours. Will attempt to obtain outside medical records from the office of Dr. Fung. Given the patient's tachypnea, if he does not respond to the use of noninvasive positive pressure ventilation and/or he becomes lethargic, would have a low threshold for intubation. 3. Microcytic anemia/chronic NSAID utilization Likely secondary to chronic gastrointestinal blood loss due to chronic NSAID utilization. The patient's aspirin and Plavix are currently on hold. Continue PPI twice daily. Transfuse 2 units of packed red blood cells and recheck H AND H posttransfusion. 4. Acute kidney injury Unclear what the patient's baseline renal function is like. Place Hoff catheter and monitor urine output closely. No indication for renal replacement therapy at this time. 5. Troponin elevation/history of coronary artery disease status post PCI Likely secondary to demand ischemia in the setting of anemia and severe sepsis. Continue to trend troponins accordingly. Aspirin and Plavix are currently on hold. Cardiology has been consulted to evaluate patient. Echocardiogram is pending. 6. Personal history of obstructive sleep apnea, noncompliant with nocturnal PAP therapy The patient reports that he has been noncompliant with use of his home CPAP for multiple years. Following this hospitalization, it would be beneficial for a re-titration study to be completed. Close outpatient pulmonary follow-up is recommended. 7. Obesity/hypertension/history of lung tumor status post lobectomy/diabetes/peripheral vascular disease Complicates care, management, recovery and prognosis. Continue Accu-Cheks and sliding scale insulin coverage every 6 hours. TIME: 60 minutes of critical care time, independent of procedures, was spent addressing the patient's severe sepsis, community-acquired pneumonia, acute respiratory failure, anemia, acute kidney injury, troponin elevation, review of all data and collaboration with the care team. ([id number]) Code Visit [id number]: [id number] Critical care first hour 05/15/17 1139 <Electronically signed by Nahun Barlow DO> Date Nahun Barlow DO Cosigner Signature (if applicable): Date CC: Caesar Chavez DO; Daysi Magana DO; Jensen Leahy MD; Nahun Barlow D.O. Signed BEDSIDE GLUCOSE Collected: 05/15/2017 Status: F Source: [place] 10:58 AM [facility] REPOSITORY TYPE CODE TESTS RESULT OUT OF REFERENCE UNITS RANGE LAB L501.080 70-110 mg/dL High BEDSIDE GLU 295 Result Comment: MANAGEMENT OF PATIENT CARE PER NURSING PROTOCOL Performed By: #### L501.080 #### [facility] Point of Care [address] [place] [address] PTHIN Collected: 05/15/2017 Status: F Source: [place] 9:25 AM [facility] REPOSITORY TYPE CODE TESTS RESULT OUT OF RANGE REFERENCE UNITS LAB L509.1000 18.4-80.1 pg/mL High PTHIN 143.5 Result Comment: Please Note: PTH INTACT METHOD AND REFERENCE RANGE CHANGE Effective 03/05/2017. Performed By: #### L509.1000 #### [facility] [address] [place], [address] VITAMIN D,25 HYDROXY Collected: 05/15/2017 Status: F Source: [place] 9:25 AM [facility] REPOSITORY TYPE CODE TESTS RESULT OUT OF REFERENCE UNITS RANGE LAB L506.1000 29.95-100.01 ng/mL Low Vitamin D 12.9 25-OH Result Comment: Vitamin D 25(OH) Status Range Deficiency <20 ng/mL (50nmol/L) Insuffciency 20 - 30 ng/mL (50 - 75 nmol/L) Sufficiency 30 - 100 ng/mL (75 - 250 nmol/L) Toxicity >100 ng/mL (>250 nmol/L) Performed By: #### L506.1000 #### [facility] [address] [place], [address] BEDSIDE GLUCOSE Collected: 05/15/2017 Status: F Source: [place] 5:38 AM [facility] REPOSITORY TYPE CODE TESTS RESULT OUT OF REFERENCE UNITS RANGE LAB L501.080 70-110 mg/dL High BEDSIDE GLU 281 Result Comment: MANAGEMENT OF PATIENT CARE PER NURSING PROTOCOL Performed By: #### L501.080 #### [facility] Point of Care [address] [place] [address] CBC-COMPLETE BLOOD CNT Collected: 05/15/2017 Status: F Source: [place] NO DIFF 3:35 AM [facility] REPOSITORY TYPE CODE TESTS RESULT OUT OF RANGE REFERENCE UNITS LAB L100.1000 4.4-11.0 K/mm3 High WBC 20.4 LAB L100.1200 4.6-6.2 M/mm3 Low RBC 3.59 LAB L100.1300 13.0-16.5 g/dl Low HGB 8.6 LAB L100.1400 40-54 % Low HCT 27.4 LAB L100.1500 80-94 fL Low MCV 76.3 LAB L100.1600 27.0-32.0 pg Low MCH 24.0 LAB L100.1700 32-36 g/gl Low MCHC 31.4 LAB L100.1810 11.6-14.6 % High RDW CV 19.9 LAB L100.1820 35.1-43.9 fl High RDW SD 52.4 LAB L100.1900 150-450 K/mm3 Normal PLT 308 LAB L100.2000 6.2-12.0 fl Normal MPV 11.5 Performed By: #### L100.0500 #### [facility] [address] [place], [place], [address] COMPREHENSIVE METABOLIC Collected: 05/15/2017 Status: F Source: [place] PROFIL 3:35 AM [facility] REPOSITORY TYPE CODE TESTS RESULT OUT OF RANGE REFERENCE UNITS LAB L501.0100 74-106 mg/dL High GLU 280 Result Comment: Glucose result greater than or equal to 200 mg/dL suggests DIABETES MELLITUS per A.D.A. criteria. Please note revised GLUCOSE reference range effective 2017. LAB L501.1000 7-18 mg/dL High BUN 74 LAB L501.1100 0.70-1.30 mg/dL High CREAT,SERUM 3.52 Result Comment: The validity of the calculated GFR AND GFRAA in patients over 70 years has not been determined. Clinical correlation is essential. LAB L501.1110 >60 mL/min Low EST GFR 19 Result Comment: Non- GFR Calc LAB L501.1115 >60 mL/min Low EST GFR - AA 23 Result Comment: GFR Calc LAB L501.1255 ml/min Normal Estimated CRCL 24.59 LAB L501.1300 10-20 RATIO High BUN/CRE 21.0 LAB L501.1500 6.4-8. g/dL Normal 2 T PROT 6.8 LAB L501.1800 3.2-5. g/dL Low 0 ALB 2.7 LAB L501.1950 2.2-4. g/dL Normal 2 GLOB 4.1 LAB L501.2000 0.9-2. RATIO Low 4 A/G 0.7 LAB L501.2200 8.5-10 mg/dL Low .1 CA 7.5 LAB L501.4100 15-37 U/L Normal AST 26 LAB L501.4305 45-117 U/L Normal ALK P 80 LAB L501.4405 16-61 U/L Normal ALT 35 Result Comment: Please note revised ALT reference range effective 2017. LAB L501.4600 0.20-1.00 mg/dL Normal T BILI 0.30 LAB L501.5300 136-145 mmol/L Normal NA 139 LAB L501.5600 3.5-5.1 mmol/L High K 5.2 LAB L501.5900 98-107 mmol/L High CL 109 LAB L501.6100 21.0-32.0 mmol/L Low CO2 17.0 LAB L501.6200 5-15 Normal GAP 13 Performed By: #### L500.4050, L501.2300, L501.5200 #### [facility] [address] [facility] [place], [place], [id number] PHOSPHORUS Collected: 05/15/2017 Status: F Source: [place] 3:35 AM [facility] REPOSITORY TYPE CODE TESTS RESULT OUT OF RANGE REFERENCE UNITS LAB L501.2300 2.5-4.9 mg/dL High PHOS 6.4 Performed By: #### L500.4050, L501.2300, L501.5200 #### [facility] [address] [place], [place], [address] MAGNESIUM Collected: 05/15/2017 Status: F Source: [place] 3:35 AM [facility] REPOSITORY TYPE CODE TESTS RESULT OUT OF RANGE REFERENCE UNITS LAB L501.5200 1.6-2.6 mg/dL Normal MG 2.5 Result Comment: Please note revised Magnesium reference range effective 2017. Performed By: #### L500.4050, L501.2300, L501.5200 #### [facility] [address] [place], [address] CHEST 1 VIEW Observed: 05/15/2017 Status: F Source: [place] (PORTABLE) 12:00 AM [facility] REPOSITORY [facility] Imaging Services [address] [place] [address] Chest 1 View (Portable) MR#: [id number] Acct: [id number] Name: BARI ROMERO Rep #: [id number] : 1955 61 From: Ryan Mejia PCP: Caesar Chavez DO Status: ADM IN Study: Chest 1 View (Portable) Date of Exam: 05/15/17 Exam# [id number] Ordering Dr: John Marcum DO STUDY: X-RAY CHEST REASON FOR EXAM: Male, 61 years old. Shortness of breath TECHNIQUE: Single frontal view COMPARISON: 05/14/2017 FINDINGS: There is suboptimal inspiration. There are bibasilar infiltrates greater on the RIGHT. There is a small RIGHT pleural effusion. There is NO pneumothorax. There is borderline enlarged. Normal mediastinum and elizabeth. Normal visualized pulmonary arteries. Normal visualized aortic arch and descending thoracic aorta. Normal visualized thoracic spine. Normal visualized ribs, clavicles, and shoulders. There is no demonstrated abnormality of the visualized soft tissue structures of the upper abdomen. RAD/Chest 1 View (Portable) IMPRESSION: There is suboptimal inspiration. There are bibasilar infiltrates greater on the RIGHT. There is a small RIGHT pleural effusion. There is NO pneumothorax. There is borderline enlarged. Electronically Signed: Ryan Mejia MD at 4:30 EST , Service support , CC: Alena Marcum; Caesar Chavez DO Stem Lead Former: Signed BEDSIDE GLUCOSE Collected: 05/14/2017 Status: F Source: [place] 11:09 PM [facility] REPOSITORY TYPE CODE TESTS RESULT OUT OF REFERENCE UNITS RANGE LAB L501.080 70-110 mg/dL High BEDSIDE GLU 292 Result Comment: MANAGEMENT OF PATIENT CARE PER NURSING PROTOCOL Performed By: #### L501.080 #### [facility] Point of Care [address] [facility] [place] [address] HH, HEMOGLOBIN AND Collected: 05/14/2017 Status: F Source: [place] HEMATOCRIT 9:00 PM [facility] REPOSITORY TYPE CODE TESTS RESULT OUT OF RANGE REFERENCE UNITS LAB L100.1300 13.0-16.5 g/dl Low HGB 7.6 LAB L100.1400 40-54 % Low HCT 26.0 Performed By: #### L100.0600 #### [facility] [address] [facility] [place], [address] TROPONIN-I Collected: 05/14/2017 Status: F Source: [place] 7:35 PM [facility] REPOSITORY Order Comment: 'TROP' Serial specimen #1, #2, #3, or #4: 4 TYPE CODE TESTS RESULT OUT OF RANGE REFERENCE UNITS LAB L501.4010 <0.06 ng/mL High alert 1.72 TROPONIN-I Result Comment: Critical Result(s) Called at: 20:30:20 05/14/2017 by: Lucie Mccoy TROPONIN-I EXPECTED VALUES <0.05 NEGATIVE 0.06 - 0.59 AT RISK OF CA > OR = 0.60 SUGGEST CA Performed By: #### L501.4010 #### [facility] [address] [facility] [place], [address] CONSULTATION Observed: 05/14/2017 Status: F Source: [place] 6:04 PM [facility] REPOSITORY [facility] Medical Records Department [address] [place] [id number] Consultation 05/14/17 1454 MR#: [id number] Acct: [id number] Name: BARI ROMERO Rep #: [id number] : 1955 61 From: Daysi Magana DO PCP: Caesar Chavez DO Status: ADM IN Y Location: ICU ICU06-1 Consultation - Renal 05/14/17 PCP/ Referring MD: Requesting physician: Alena Marcum Primary care physician: Caesar Chavez Reason for Consultation:: renal failure - History of Present Illness History of Present Illness: The patient is a 61 y/o M with history of DM type 2, HTN, COPD, tobacco use history, coronary vascular disease s/p stent in 2003, PAD with 70% blockage in RLE with claudication followed by Dr. Shafer presents to the emergency department with shortness of breath with nonproductive cough past 4 days. He had fever, chills day prior to admit with diarrhea x2. He has a history of noncompliance with his CPAP machine at home with LADARIUS. He has a history of pneumonia at the time he had rt lung lobectomy, thoracotomy for a benign tumor in 2009. The patient was hypoxic at 86% on room air currently on BIPAP. He was empirically treated for pneumonia. Temp was as high as 103. He tested positive for influenza B. He has generalized malaise, myalgias. Denied sick contacts at home. Consulted for renal failure. Creatinine on admit 3.25 today. Denied change in urine output at home. He has a history of poor compliance with diabetes. Hgb A1C was 9.6. Creatinine was 2.33 eGFR 35cc/min in October 2015 on review of old records from PCP office. Renal US showed RK 9.4cm, LK 8.9cm with no hydronephrosis. UA showed proteinuria and trace hematuria. FeNa >1%, No recent iv contrast exposure. BP low. No family history for kidney disease. 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 Denied history of kidney trouble in the past. Hgb was low at 6.3g on admit received prbc. Iron stores were low with iron at 12 ferritin 8.0. Denied hematochezia, melena, hemoptysis, epistaxis. He is on plavix with hx coronary stent, pafib. He has a history of gout on mobic, zestril at home, both discontinued on admit. - Allergies Allergies: Allergies No Known Allergies Allergy (Verified 05/14/17 05:00) - Current Medications Current Medications: Current Medications Acetaminophen (Tylenol) 650 mg PO Q4H PRN PRN PRN Reason: FEVER Last Admin: 05/14/17 11:12 Dose: 650 mg Al Hydroxide/Mg Hydroxide (Mylanta Ii) 30 ml PO Q6H PRN PRN PRN Reason: Gastric Burning Albuterol Sulfate (Ventolin Aerosols) 2.5 mg INHALATION Q2H PRN PRN PRN Reason: SHORTNESS OF BREATH Albuterol/Ipratropium (Duoneb) 3 ml INHALATION Q4H.RT [facility] Last Admin: 05/14/17 14:35 Dose: 3 ml Atorvastatin Calcium (Lipitor) 40 mg PO DAILY@2200 [facility] Dextrose (D50w Syringe) 0 gm IV X1 PRN; Protocol PRN Reason: Hypoglycemia Docusate Sodium (Colace) 200 mg PO BID PRN PRN PRN Reason: Constipation Glucagon () 1 mg IM .X1 PRN PRN Reason: Hypoglycemia Pantoprazole Sodium 40 mg/ (Sodium Chloride) 110 mls @ 330 mls/hr IV Q12 [facility] Cefepime HCl 2 gm/ Sodium (Chloride) 100 mls @ 200 mls/hr IV Q24 [facility] Last Admin: 05/14/17 11:13 Dose: 200 mls/hr Insulin Aspart (Novolog Flexpen (Bkc)) 0 units SC Q6H ZACH PRN Reason: Protocol Last Admin: 05/14/17 11:46 Dose: 4 u Labetalol HCl (Trandate) 10 - 20 mg IV Q4H PRN PRN Reason: sys>150diast>85 Methylprednisolone (Solu-Medrol) 40 mg IV Q6 [facility] Last Admin: 05/14/17 11:13 Dose: 40 mg Metoprolol Succinate (Toprol Xl (Beta Vanesa)) 25 mg PO DAILY [facility] Ondansetron HCl (Zofran) 4 mg IV Q8H PRN PRN PRN Reason: NAUSEA Oseltamivir Phosphate (Tamiflu) 75 mg PO BID [facility] Stop: 05/19/17 10:01 Oxycodone HCl (Oxyir) 5 mg PO Q4H PRN PRN PRN Reason: Moderate Pain (pain scale 4-5) Sodium Chloride () 5 - 30 ml IV UD PRN PRN Reason: SALINE FLUSH Last Admin: 05/14/17 11:13 Dose: 20 ml Tamsulosin HCl (Flomax) 0.4 mg PO DAILY@1730 ZACH - Past Medical History Past Medical History (Chronic Problems): Chronic Problems Hypertension (Chronic) Diabetes mellitus type 2 in obese (Chronic) - Past Surgical History Surgical History: angioplasty - stent x2 2003, - - rt lung thoracotomy, lobectomy 2009 for benign tumor - Social History Smoking Status: Former smoker - Family History Maternal History Items: COPD Paternal History Items: Cancer - leukemia, Hypertension Review of Systems Constitutional: Reports: Chills, Fever, Weakness, Fatigue. Denies: Anorexia Eyes: Denies: Vision Change HEENT: Denies: Head Aches Respiratory: Reports: Cough - nonproductive, Shortness of Breath, Shortness of breath at rest, Wheezing, - - sleep apnea, noncompliant with CPAP. Denies: Hemoptysis Gastrointestinal: Reports: Diarrhea - x2. Denies: Abdominal Pain, Nausea, Vomiting Genitourinary: Reports: - - denies change in urine output. Denies: Dysuria Musculoskeletal: Reports: Muscle pain, - - malaise. Denies: Back Pain Skin: Denies: Rash Neurological: Reports: - - generalized weakness. Denies: Headaches, Tremor, Seizures Psychiatric: Denies: Depression Endocrine: Denies: Polydipsia, Polyuria Hematologic/ Lymphatic: Reports: Anemia. Denies: Hx of blood clot, Hx of blood transfusion Patient Problems: Active and Suspected Problems Coronary artery disease (Acute) COPD with severe acute bronchitis (Acute) Acute on chronic blood loss anemia (Acute) Benign lung tumor s/p right lobectomy (Acute) Lower GI bleed (Acute) Acute hypoxic respiratory failure (Acute) Chronic left upper extremity numbness (Acute) Acute kidney injury (Acute) Non-STEMI (non-ST elevated myocardial infarction) (Acute) - Physical Exam General: Alert, Oriented x3, Cooperative, Well developed, Well nourished, - - on BIPAP, tachycardic, tachyneic HEENT: PERRLA, EOMI Oral: Dry Mucosa Neck: Supple, No JVD Cardiovascular: Tachycardic Abdomen: Bowel Sounds Present, Soft, Non Tender, Non-Distended, Obese Extremities: No edema, Diminished Peripheral Pulses - rt pedal, pulse intact left pedal Skin: No rashes Musculoskeletal: No Muscle Wasting Neurological: Cranial nerves II-XII grossly intact, - - no tremor Psych/Mental Status: Appropriate, Alert and oriented to time, place, person, mood and affect Vital Signs Temp Pulse Resp BP Pulse Ox 100.4 F H 103 H 17 112/59 L 98 05/14/17 13:00 05/14/17 13:00 05/14/17 13:00 05/14/17 13:00 05/14/17 13:00 Oxygen Flow Rate 3 Oxygen Delivery Method Nasal Cannula Weight: 109.769 kg Body Mass Index (BMI) 31.9 Intake and Output for Last 24 Hours Intake Total 1252 / 1252 Output Total 1150 / 1150 Balance 102 / 102 Microbiology Past 72 Hours 05/14/17 07:50 Respiratory Panel (PCR) - Final Mucosa - Nasopharyngeal Influenzae B Laboratory Tests Past 24 Hrs Immature Plt Fraction 4.9 Retic Count 1.53 H Immature Retic Fraction 9.70 Immature Plt Fraction Retic Count Immature Retic Fraction Retic Hgb Equivalent Immature Plt Fraction Retic Count Immature Retic Fraction Retic Hgb Equivalent Specimen Type Immature Plt Fraction Retic Count Immature Retic Fraction Retic Hgb Equivalent Specimen Type ART Immature Plt Fraction Retic Count Immature Retic Fraction Retic Hgb Equivalent Specimen Type Sample Site POC Glucose POC Glucose 209 H Clinical Impression(s) from Imaging Studies Chest X-Ray 05/14/17 04:53 IMPRESSION: There is suboptimal inspiration There are bibasilar infiltrates and small effusions larger on the RIGHT. There is NO pneumothorax. Heart is borderline enlarged. Electronically Signed: Ryan Mejia MD at 6:22 EST , Service support , Renal Ultrasound 05/14/17 09:35 IMPRESSION: Normal ultrasound of the kidneys. Electronically Signed: Herbert Carroll MD at 13:09 EST Tel [phone], Service support , Assessment/Plan Active and Suspected Problems Coronary artery disease (Acute) COPD with severe acute bronchitis (Acute) Acute on chronic blood loss anemia (Acute) Benign lung tumor s/p right lobectomy (Acute) Lower GI bleed (Acute) Acute hypoxic respiratory failure (Acute) Chronic left upper extremity numbness (Acute) Acute kidney injury (Acute) Non-STEMI (non-ST elevated myocardial infarction) (Acute) 1. Acute on CKD stage 3 vs progressive diabetic nephropathy. Creatinine 2.33 eGFR 35cc/min in October 2015 now at 3.6. Will continue to monitor renal function while on iv hydration. Underlying diabetic nephropathy UPCR 1.88g . Agree with holding ACEi and Mobic due to renal failure. Renal US no hydro. No urgent need for dialysis. 2. DM type 2 Hx noncompliance with diabetes A1C elevated at 9.8. 3. Acute respiratory distress from pneumonia, influenza B on iv antibx, BIPAP support. Pulmonary following 4. Iron def anemia hgb 6.3g s/p prbc. IV iron. 5. Check PTH, vit D. 6. LADARIUS noncompliant with CPAP 7. COPD with hx tobacco use. 8. Morbid Obesity with wt loss hx past year 9. PAD with claudication RLE followed by DR. Shafer as outpt 10 CAD s/p coronary stent 2003, +troponin, cardiology following. 11. gout on probenecid and allopurinol at home. Would stop probenecid due to renal failure and renal adjust allopurinol 12. Lactic acidosis with metabolic acidosis r/o sepsis 13. Avoid nephrotoxins, renal dose antibx. thank you, hospitalist, [facility] 05/14/17 3309 <Electronically signed by Daysi Magana DO> Date Daysi Magana DO Cosigner Signature (if applicable): Date CC: Caesar Chavez DO; Daysi Magana DO; Jensen Leahy MD; Nahun Barlow D.O. Signed ECHOCARDIOGRAM COMPLETE Observed: 05/14/2017 Status: F Source: [place] 5:49 PM [facility] REPOSITORY [facility] Cardiovascular Services [address] [place] [address] 14027 Echo Complete W/ Contrast 05/14/17 1526 MR#: [id number] Acct: [id number] Name: BARI ROMERO Rep #: [id number] : 1955 61 From: Jensen Leahy MD Attending Dr: Alena Marcum Status: ADM IN Ordering Dr: Nahun Barlow DO Date: 05/14/17 Location: ICU Sex: M C Admitted: 05/14/17 Version 2 Reason For Study: DYSPNEA Procedure This was a 2D Doppler, Color Flow transthoracic echocardiogram. Contrast injection was performed. The study was technically difficult. Pt on CPAP . Exam performed portable in ICU/CCU. Left Ventricle Normal size and thickness. The estimated ejection fraction is 65 %. Stage 2 diastolic dysfunction. No regional wall motion abnormalities noted. Right Ventricle Normal size and thickness. Normal systolic function. Atria Normal left atrium. Normal right atrium. Normal atrial septum. Mitral Valve The mitral valve is structurally normal. No prolapse or stenosis seen. Tricuspid Valve Normal tricuspid valve. Trivial tricuspid valve insufficiency. Right ventricular systolic pressure estimated to be 14 mmHg. Aortic Valve Normal aortic valve. Trisinus/trileaflet aortic valve. Pulmonic Valve Normal pulmonic valve. Great Vessels Normal aortic root. Normal arch. Normal inferior vena cava. Inferior vena cava collapse with sniff. Pericardium/Pleural No pericardial effusion. Medication Diluted definity 3ml given slow IV push to enhance endocardial definition. MMode/2D Measurements AND Calculations LVIDd: 5.6 cm IVSd: 1.2 cm Ao root diam: 3.2 cm LVIDs: 3.6 cm LVPWd: 1.2 cm LA dimension: 3.6 cm FS: 35.8 % LAV(MOD-bp): 64.7 ml LVAd ap4: 35.0 cm2 SV(MOD-sp4): 68.8 ml LAV(MOD-bp) Indexed: 27.0 ml/m2 EDV(MOD-sp4): 110.3 ml LAV(MOD-sp2): 62.9 ml EDV(sp4-el): 115.4 ml LAV(MOD-sp4): 58.4 ml LVAs ap4: 19.4 cm2 ESV(MOD-sp4): 41.4 ml ESV(sp4-el): 41.5 ml EF(MOD-sp4): 62.4 % EF(sp4-el): 64.0 % SV(sp4-el): 73.9 ml LA A4 area: 22.6 cm2 RA A4 area: 17.1 cm2 Doppler Measurements AND Calculations MV E max stella: 111.1 cm/sec Ao V2 max: 148.4 cm/sec LV V1 max: 107.0 cm/sec MV A max stella: 88.5 cm/sec Ao max P.8 mmHg LV V1 max P.6 mmHg MV E/A: 1.3 TR max stella: 148.1 cm/sec TR max P.8 mmHg Interpretation Summary The estimated ejection fraction is 65 %. Stage 2 diastolic dysfunction. Right ventricular systolic pressure estimated to be 14 mmHg. Compared to echo report dated 11/23/2009,LV function has improved from 45% to 65%.. RVSP has decreased from 31 to 14 mm Hg. The study was technically difficult. Contrast injection was performed. Ordering Physician: Nahun Barlow D.O. Referring Physician: CAESAR BETANCOURT Performed By: Mae Hardy, RDCS, RVT 05/14/171747 Date Jensen Leahy MD CC: Caesar Chavez DO; Nahun Barlow D.O. Date Dictated: 05/14/171525 Date Transcribed: 05/14/171747 Stem Lead Former: Signed BEDSIDE GLUCOSE Collected: 05/14/2017 Status: F Source: [place] 5:15 PM [facility] REPOSITORY TYPE CODE TESTS RESULT OUT OF REFERENCE UNITS RANGE LAB L501.080 70-110 mg/dL High BEDSIDE GLU 291 Result Comment: MANAGEMENT OF PATIENT CARE PER NURSING PROTOCOL Performed By: #### L501.080 #### [facility] Point of Care [address] [place], [place] [address] TROPONIN-I Collected: 05/14/2017 Status: F Source: [place] 1:45 PM [facility] REPOSITORY Order Comment: 'TROP' Serial specimen #1, #2, #3, or #4: 3 TYPE CODE TESTS RESULT OUT OF RANGE REFERENCE UNITS LAB L501.4010 <0.06 ng/mL High alert 1.86 TROPONIN-I Result Comment: Critical Result(s) Called at: 14:22:17 05/14/2017 by: Geni Shetty to Dr. Barlow TROPONIN-I EXPECTED VALUES <0.05 NEGATIVE 0.06 - 0.59 AT RISK OF CA > OR = 0.60 SUGGEST CA Performed By: #### L501.4010 #### [facility] [address] [place], [place], [address] CONSULTATION Observed: 05/14/2017 Status: F Source: [place] 12:57 PM [facility] REPOSITORY [facility] Medical Records Department [address] [place] [address] Consultation 05/14/17 1247 MR#: [id number] Acct: [id number] Name: BARI ROMERO Rep #: [id number] : 1955 61 From: Jensen Leahy MD PCP: Caesar Chavez DO Status: ADM IN Y [facility] Problem List (1) Non-STEMI (non-ST elevated myocardial infarction) Status: Acute (2) Coronary artery disease Status: Acute (3) Hypertension Status: Chronic Reason for Consult Date of Consultation: 05/14/17 Reason for Consultation: Non-STEMI, coronary artery disease status post stenting, hypertension, hypercholesterolemia, atrial fibrillation History of Present Illness: The patient is a 61 year old M, former patient of Dr. Loza's last seen on 06/14/2011. The patient has a history of hypertension, diabetic hypercholesterolemia, coronary disease status post angioplasty of the obtuse marginal branch and the LAD in 2003 at [facility]. 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 Repeat catheterization reportedly showed widely patent stents at that time. Patient was transferred to [facility] and underwent a partial lobectomy on the right side is apparently some tumor was impacting on the cardiac performance. According to the patient it was not diagnosed as cancer and he received no chemotherapy or x-ray therapy. Patient recently quit smoking less than 1 year ago after 40 [id number] smoking history. Patient was in normal health up until recently when he developed left arm numbness with associated chest pain. This appear to be relieved with sublingual nitroglycerin. In addition the patient has had progressively worsening shortness of breath, dyspnea on exertion, fevers and chills. Patient was found to be profoundly hypertensive upon arrival, and complained of black tarry stools as well. He was found to be anemic with a hemoglobin of 6.3 and is currently undergoing IV fluid resuscitation as well as 1 unit PRBC transfusion. He reports that he is on chronic aspirin Plavix therapy as well as peripheral vascular medications for peripheral vascular disease in his right and left lower extremity, right greater than left. He reports he has a 70% stenosis in his popliteal area and is seen by Dr. Shafer. Patient was transiently placed on BiPAP therapy and is currently off of that. He apparently developed atrial fibrillation and appears to be in sinus tachycardia at this time. His initial troponin was 0.39 is increased to 1.10. EKG demonstrates atrial fibrillation with rapid ventricular response, PVC, lateral ST segment depression. Appears to be in sinus tachycardia on the monitor. [] Past Medical History Allergies/Adverse Reactions: Allergies No Known Allergies Allergy (Verified 05/14/17 05:00) Home Medications: Ambulatory Orders Medication Instructions Recorded Albuterol Inhaler [Ventolin Hfa 1 - 2 puff INHALATION Q6H PRN PRN 05/14/17 Past Medical History (Chronic Problems): Chronic Problems Hypertension (Chronic) Diabetes mellitus type 2 in obese (Chronic) Smoking Status: Former smoker Review of Systems - Review of Systems General: Denies: Fever, Night Sweats, Fatigue Cardiovascular: Reports: Chest Discomfort at Rest, Chest Discomfort with Exertion, Shortness of Breath at Rest, Shortness of Breath with Exertion. Denies: Chest Discomfort, Shortness of Breath, Orthopnea, PND, Peripheral Edema, Palpitations, Lightheadedness, Dizziness, Near Syncope, Syncope Respiratory: Denies: Cough, Sputum Production, Hemoptysis Gastrointestinal: Denies: Hematemesis, Hematochezia, Melena Genitourinary: Denies: Dysuria, Hematuria Skin: Denies: Rash Subjectve: Patient laying in bed, off of BiPAP, positive conversational dyspnea. Objective: Vital Signs Temp Pulse Resp BP Pulse Ox 102.3 F H 122 H 32 H 131/60 H 96 05/14/17 09:49 05/14/17 10:45 05/14/17 10:45 05/14/17 09:49 05/14/17 11:00 Oxygen Flow Rate 3 Oxygen Delivery Method Nasal Cannula Weight: 242 lb Body Mass Index (BMI) 31.9 Intake and Output for Last 24 Hours Intake Total 852 / 852 Output Total 1150 / 1150 Balance -298 / -298 General: Awake, Alert, Oriented x 3 HEENT: PERRL, EOMI, Sclera Non Icteric Neck: Supple, Good ROM, No Lymph Node Enlargement Lungs: Diminished Right Base, Rales - Right Base Cardiovascular: Regular Rhythm, Normal S1, Normal S2, No Murmurs, No Rubs, No Gallops Vascular: No Carotid Bruits, Normal Femoral Pulses, Normal Radial Pulses, Normal Dorsalis Pedal Pulse, Normal Posterior Tibial Pulses Abdomen: Bowel Sounds Present, Soft, Non Tender, No HSM, No Organomegaly Extremities: No Cyanosis, No Clubbing, No edema Neurological: No Focal Motor or Sensory Deficit 05/14/17 08:10: Lactic Acid 2.1 H 05/14/17 08:20: Iron 12 L, TIBC 396, Iron Saturation 3.0 L, Ferritin 8 L 05/14/17 08:20: Uric Acid 5.0, Magnesium 1.6, Total Bilirubin 0.20, Direct Bilirubin 0.07, Troponin I 1.10 H* 05/14/17 08:20: Phosphorus 2.0 L 05/14/17 08:20: Hemoglobin A1c 9.6 H 05/14/17 08:30: Urine Color Yellow, Urine Clarity Clear, Urine pH 6.0, Ur Specific [place] 1.010, Urine Protein 100 H, Urine Glucose (UA) Normal, Urine Ketones Negative, Urine Occult Blood 25 H, Urine Nitrite Negative, Urine Bilirubin Negative, Urine Urobilinogen Normal, Ur Leukocyte Esterase Negative 05/14/17 10:51: pH 7.37, Bicarbonate Actual 13.6 L, POC Total CO2 14, Base Excess -12 L, O2 Saturation 98, ABG pCO2 23.5 L, ABG pO2 100, Venkatesh Test POS Rhythm: EKG: Repeat EKG pending ECHO: Pending Stress Test: Cardiac Cath: PCI: CT Surgery: Holter monitor: EPS: PPM: CXR: Chest CT Scan: Assessment/Plan 1. Coronary artery disease: The patient presented with severe hypertension with associated chest pain and numbness down his left arm, relieved with sublingual nitroglycerin and blood pressure control. He was also profoundly anemic at hemoglobin is 6.3, and requires least 1 unit of PRBC at this time. Would recommend keeping his hemoglobin above 8.0 at the very least. Would recommend holding his Plavix at this time and continuing baby aspirin going forward. Would also recommend PPI therapy in the event that he may have an undiagnosed ulcer. Patient appears to be back in normal sinus rhythm/sinus tachycardia and would recommend EKG to confirm this. Would recommend a 2D echo with Doppler to document his LV function. Would not recommend catheterization at this time as he has no evidence of ST elevation or anginal symptoms or unstable arrhythmias. I would however recommend that he undergo a noninvasive nuclear stress test once he has recovered to determine if he has any areas of ischemia particularly of the anterior or lateral territories consistent with his previous stents. In addition the patient was on Zestoretic 20/12.5 mg p.o. daily in the distant past, would recommend restarting this once he is hemodynamically stable. 2. Atrial fibrillation: The patient appears to have converted to sinus tachycardia. Continue baby aspirin. Given his GI bleeding would not recommend heparin at this time. Patient's last medicine list as of 2011 showed that he was on Toprol-XL 50 mg p.o. daily. Would recommend initiating Toprol-XL 25 mg p.o. daily and titrating up from there. Her graft would recommend keeping his potassium above 4.0 and his magnesium of 2.0. 3. Hyperlipidemia: Patient was on TriCor therapy in the past, and is currently on atorvastatin. Continue atorvastatin. 4. Thank you very much for the opportunity to put dissipate in the cardiac care of your patient. Consultation time took place between 12 and 12:[address] Barlow. Code Visit Inpatient E AND M: [id number] Init Hosp L2 05/14/17 1257 <Electronically signed by Jensen Leahy MD> Date Jensen Leahy MD [facility] Signature (if applicable): Date CC: Caesar Chavez DO; Daysi Magana DO; Jensen Leahy MD; Nahun Barlow D.O. Signed BEDSIDE GLUCOSE Collected: 05/14/2017 Status: F Source: [place] 11:45 AM [facility] REPOSITORY TYPE CODE TESTS RESULT OUT OF REFERENCE UNITS RANGE LAB L501.080 70-110 mg/dL High BEDSIDE GLU 209 Result Comment: MANAGEMENT OF PATIENT CARE PER NURSING PROTOCOL Performed By: #### L501.080 #### [facility] Point of Care [address] [place] [address] BLOOD GASES BY [facility] Collected: 05/14/2017 Status: F Source: [place] 10:51 AM [facility] REPOSITORY TYPE CODE TESTS RESULT OUT OF RANGE REFERENCE UNITS LAB L9000.9990 Normal BLD GAS TYPE ART LAB L9001.1000 Normal SITE L Radial LAB L9001.1010 Normal VENKATESH TEST POS LAB L9001.1050 O2 Normal Delivery Dev Bi / C PAP LAB L9001.1070 RR Normal 14 LAB L9001.1074 Normal FI02 30 LAB L9001.1088 Normal IPAP 12 LAB L9001.1090 Normal EPAP 6 LAB L9001.1104 Normal Results To ICU MD LAB L9001.1105 Normal Time Given 1046 LAB L9001.1110 7.35-7.45 pH Normal - I-STAT 7.37 LAB L9001.1210 35-45 mmHg Low pCO2 - ISTAT 23.5 LAB L9001.1310 75-100 mmHG Normal PO2 I-STAT 100 LAB L9001.2300 22-26 mmol/L Low HCO3 ISTAT 13.6 LAB L9001.2400 -2 to +2 mmol/L Low BE ISTAT -12 LAB L9001.2415 mmol/L Normal TOTAL CO2 14 ISTAT LAB L9001.2425 95-99 % Normal SO2 ISTAT 98 Performed By: #### L9000.0800 #### [facility] Point of Care [address] [place] [address] KIDNEY AND BLADDER Observed: 05/14/2017 Status: F Source: [place] 9:37 AM [facility] REPOSITORY [facility] Imaging Services [address] [place] [address] Kidney and Bladder MR#: [id number] Acct: [id number] Name: BARI ROMERO Rep #: [id number] : 1955 M 61 From: Herbert Carroll MD PCP: Caesar Chavez DO Status: ADM IN Study: Kidney and Bladder Date of Exam: 05/14/17 Exam# [id number] Ordering Dr: John Marcum DO STUDY: RENAL ULTRASOUND - COMPLETE REASON FOR EXAM: Male, 61 years old. Renal failure. TECHNIQUE: Ultrasound evaluation of the kidneys was performed with real-time and static ibarra-scale imaging. COMPARISON: None. FINDINGS: RIGHT KIDNEY: Normal location of the right kidney, which is normal in size. The right kidney measures 9.4 cm x 4.9 cm x 4.8 cm. There is a normal cortex of the right kidney. The renal cortex measures 1.3 cm. There is no right renal mass or cyst. There are no right renal calculi. There is no right hydronephrosis. DISTAL RIGHT URETER: There is non-visualization of the distal right ureter. There is no demonstrated right ureterovesical junction calculus. There is no demonstrated right ureteral jet. LEFT KIDNEY: Normal location of the left kidney, which is normal in size. The left kidney measures 8.9 cm x 3.6 x 4.4 cm. There is a normal cortex of the left kidney. The renal cortex measures 1.1 cm. There is no left renal mass or cyst. There are no left renal calculi. There is no left hydronephrosis. DISTAL LEFT URETER: There is non-visualization of the distal left ureter. There is no demonstrated left ureterovesical junction calculus. There is no demonstrated left ureteral jet. BLADDER: A Hoff catheter is seen within the empty bladder. US/Kidney and Bladder IMPRESSION: Normal ultrasound of the kidneys. Electronically Signed: Herbert Carroll MD at 13:09 EST Tel [phone], Service support , CC: Alena Marcum; Caesar Chavez DO Stem Lead Former: Signed URINALYSIS, ROUTINE Collected: 05/14/2017 Status: F Source: MALIK (DIPSTICK) 8:30 AM [facility] REPOSITORY Order Comment: How was Urine Obtained? CATHETER SPECIMEN TYPE CODE TESTS RESULT OUT OF RANGE REFERENCE UNITS LAB L400.3000 Yellow COLOR Normal Yellow LAB L400.3050 Clear Normal CLARITY Clear LAB L400.3200 Normal mg/dl Normal GLUCOSE, UR Normal LAB L400.3300 Negative mg/dL Normal BILIRUBIN URINE Negative LAB L400.3400 Negative mg/dl Normal KETONE UR Negative LAB L400.3465 1.002-1.030 Normal SP.GR. DIPSTX 1.010 LAB L400.3550 5.0 - 8.0 pH UR Normal 6.0 LAB L400.3600 Negative mg/dl High PROT DIPSTX 100 LAB L400.3700 Normal mg/dl Normal UROBILI Normal LAB L400.3750 Negative Normal NITRITE UR Negative LAB L400.3780 Negative /ul High 25 OCCULT BLOOD-UR LAB L400.3800 Negative /ul LEUK Normal ESTERASE Negative Performed By: #### L400.2010 #### [facility] [address] [facility] [place], [address] Observed: 05/14/2017 Status: F Source: [place] LEGIONELLA ANTIGEN 8:30 AM [facility] URINE REPOSITORY Legionella, UR Legionella Antigen result interpretation: Negative Presumptive negative for Legionella pneumophila serogroup 1 antigen in urine, suggesting no recent or current infection. Legionella Ag, Urine Negative (See interpretation below) Performed By: #### M300.4500 #### [facility] [place], [address] URINE SODIUM Collected: 05/14/2017 Status: F Source: [place] 8:30 AM [facility] REPOSITORY TYPE CODE TESTS RESULT OUT OF RANGE REFERENCE UNITS LAB L501.5500 Not Establ. mmol/L Normal UR NA 86 Performed By: #### L501.5500 #### [facility] [address] [place], [address] CREATININE, URINE Collected: 05/14/2017 Status: F Source: [place] (RANDOM) 8:30 AM [facility] REPOSITORY TYPE CODE TESTS RESULT OUT OF RANGE REFERENCE UNITS LAB L501.1200 NO RANGE EST. mg/dL Normal UR CREAT 63.00 Performed By: #### L501.1200 #### [facility] [address] [facility] [place], [address] PROTEIN, URINE Collected: 05/14/2017 Status: F Source: [place] (RANDOM) 8:30 AM [facility] REPOSITORY TYPE CODE TESTS RESULT OUT OF RANGE REFERENCE UNITS LAB L501.1930 <11.9 mg/dL High 119.1 PROTEIN,UR.R AN. Performed By: #### L501.1930 #### [facility] [address] [facility] [place], [address] Observed: 05/14/2017 Status: F Source: [place] CULTURE, SPUTUM 8:30 AM [facility] REPOSITORY Gram Stain Acceptable Specimen? Yes (<25 Epithelial cells per/lpf) Gram Stain 4+ Gram positive diplococci Rare Gram positive rods Very Rare White Blood Cells No Epithelial cells Resp. Culture ORGANISM 1: Streptococcus pneumoniae Amount Growth 3+ ORGANISM 2: Mixed Culture Amount Growth 3+ Streptococcus pneumoniae: REACTION Cefotaxime (meningitis) $ <=0.12 S Cefotaxime (Other dx) $ <=0.12 S (meningitis)Ceftriaxone $ <=0.12 S Ceftriaxone (other dx) $ <=0.12 S Clindamycin $$ <=0.25 S Erythromycin $ >=8 R Levofloxacin $ 0.5 S Moxifloxicin *NF 0.12 S Tetracycline NF <=0.25 S Trimethoprim/Sulfametho $ <=10 S Vancomycin $ 0.5 S (NF) indicates non-formulary drug at [facility]. Approval by Infectious Disease Specialist required before non-formulary drugs may be ordered and/or dispensed. * CLSI guidelines does not recommend testing of cephalosporins. This interpretation is deduced from Beta-lactam/penicillin results. Performed By: #### M100.0800 #### [facility] [address] [place] [address]. [place], [address] STREP Observed: 05/14/2017 Status: F Source: [place] PNEUMONIAE ANTIG(UR,CSF) 8:27 AM [facility] REPOSITORY S pneumo Ag URINE INTERPRETATION Negative Urine Presumptive negative for pneumococcal pneumonia, suggesting no current or recent pneumococcal infection. Infection due to S pneumoniae cannot be ruled out since the antigen present in the sample may be below the detection limit of the test. Strep pneumo Test Negative URINE (See interpretation below) Performed By: #### M300.4600 #### [facility] [address] [facility] [place], [address] RETIC PANEL Collected: 05/14/2017 Status: F Source: [place] 8:20 AM [facility] REPOSITORY TYPE CODE TESTS RESULT OUT OF RANGE REFERENCE UNITS LAB L101.0000 0.5-1.5 % High RETIC 1.53 LAB L101.0060 3.00-15.90 % IM Normal RET FRACTION 9.70 LAB L101.0090 30-35 pg Low RET-HE 15.3 LAB L101.0110 1.0-7.9 % Normal IPF 4.9 Result Comment: Low PLT + Low IPF suggest a bone marrow production disorder Low PLT + high IPF suggests peripheral destruction (e.g.ITP, TTP, HIT, DIC, autoimmune) or bone marrow recovery Trending of serial IPF measurements is recommended when evaluating for bone marrow respones Value above normal range indicates an increase in RBC cellular response from bone marrow. Performed By: #### L100.9950 #### [facility] [address] [facility] [place], [address] IRON+IRON BINDING Collected: 05/14/2017 Status: F Source: [facility] 8:20 AM [facility] REPOSITORY TYPE CODE TESTS RESULT OUT OF RANGE REFERENCE UNITS LAB L503.6075 250-450 ug/dL TIBC Normal 396 LAB L503.6150 65-175 ug/dL Low IRON 12 LAB L503.6250 15.0-55.0 % Low IRON SATURATION 3.0 Performed By: #### L503.6030, L503.6550 #### [facility] [address] [place], [address] FERRITIN Collected: 05/14/2017 Status: F Source: [place] 8:20 AM [facility] REPOSITORY TYPE CODE TESTS RESULT OUT OF REFERENCE UNITS RANGE LAB L503.6550 26-388 ng/mL Low FERRITIN 8 Performed By: #### L503.6030, L503.6550 #### [facility] [address] [place], [address] PHOSPHORUS Collected: 05/14/2017 Status: F Source: [place] 8:20 AM [facility] REPOSITORY TYPE CODE TESTS RESULT OUT OF RANGE REFERENCE UNITS LAB L501.2300 2.5-4.9 mg/dL Low PHOS 2.0 Performed By: #### L501.2300 #### [facility] [address] [place], [address] HEMOGLOBIN A1C Collected: 05/14/2017 Status: F Source: [place] 8:20 AM [facility] REPOSITORY TYPE CODE TESTS RESULT OUT OF RANGE REFERENCE UNITS LAB L501.9985 4.2-6.3 % High HGB A1C 9.6 Performed By: #### L501.9985 #### [facility] [address] [place], [place], [address] LIVER PROFILE Collected: 05/14/2017 Status: F Source: [place] 8:20 AM [facility] REPOSITORY Order Comment: 'TROP' Serial specimen #1, #2, #3, or #4: 2 TYPE CODE TESTS RESULT OUT OF RANGE REFERENCE UNITS LAB L501.1500 6.4-8.2 g/dL Normal T PROT 6.6 LAB L501.1800 3.2-5.0 g/dL Low ALB 2.8 LAB L501.1950 2.2-4.2 g/dL Normal GLOB 3.8 LAB L501.4100 15-37 U/L Normal AST 33 LAB L501.4305 45-117 U/L Normal ALK P 91 LAB L501.4405 16-61 U/L Normal ALT 36 Result Comment: Please note revised ALT reference range effective 2017. LAB L501.4600 0.20-1.00 mg/dL Normal T BILI 0.20 LAB L501.4700 0.00-0.30 mg/dL Normal D BILI 0.07 Performed By: #### L500.3400, L501.1400, L501.4010, L501.5200 #### [facility] [address] [place], [place], [address] URIC ACID Collected: 05/14/2017 Status: F Source: [place] 8:20 AM [facility] REPOSITORY Order Comment: 'TROP' Serial specimen #1, #2, #3, or #4: 2 TYPE CODE TESTS RESULT OUT OF RANGE REFERENCE UNITS LAB L501.1400 3.5-7.2 mg/dL Normal URIC 5.0 Result Comment: The drugs N-Acetylcysteine and Metamizole may falsely depress this assay. Performed By: #### L500.3400, L501.1400, L501.4010, L501.5200 #### [facility] [address] [place], [address] TROPONIN-I Collected: 05/14/2017 Status: F Source: [place] 8:20 AM [facility] REPOSITORY Order Comment: 'TROP' Serial specimen #1, #2, #3, or #4: 2 TYPE CODE TESTS RESULT OUT OF RANGE REFERENCE UNITS LAB L501.4010 <0.06 ng/mL High alert 1.10 TROPONIN-I Result Comment: Critical Result(s) Called at: 09:28:59 05/14/2017 by: Geni Lynch TROPONIN-I EXPECTED VALUES <0.05 NEGATIVE 0.06 - 0.59 AT RISK OF CA > OR = 0.60 SUGGEST CA Performed By: #### L500.3400, L501.1400, L501.4010, L501.5200 #### [facility] [address] [place], [address] MAGNESIUM Collected: 05/14/2017 Status: F Source: [place] 8:20 AM [facility] REPOSITORY Order Comment: 'TROP' Serial specimen #1, #2, #3, or #4: 2 TYPE CODE TESTS RESULT OUT OF RANGE REFERENCE UNITS LAB L501.5200 1.6-2.6 mg/dL Normal MG 1.6 Result Comment: Please note revised Magnesium reference range effective 2017. Performed By: #### L500.3400, L501.1400, L501.4010, L501.5200 #### [facility] [address] [place], [address] M R STAPH AUREUS Collected: 05/14/2017 Status: F Source: [place] DNA BY PCR 8:20 AM [facility] REPOSITORY TYPE CODE TESTS RESULT OUT OF RANGE REFERENCE UNITS LAB L8200.1100 Negative Normal MRSA Negative RESULT Performed By: #### L8200.1000 #### [facility] [address] [place], [address] PSA,TOTAL - ANNUAL Collected: 05/14/2017 Status: F Source: [place] SCREEN 8:20 AM [facility] REPOSITORY TYPE CODE TESTS RESULT OUT OF RANGE REFERENCE UNITS LAB L501.9910 0.00-4.00 ng/mL Normal PSA,TOT 1.20 SCREEN Result Comment: This test was performed using the TPSA assay method for the Syntervention chemistry system. Values obtained with different assay methods cannot be used interchangably. When changing PSA assays in the course of monitoring a patient, additional sequential testing should be carried out to confirm baseline values. Performed By: #### L501.9910 #### [facility] [address] [place], [place], [address] LACTIC ACID Collected: 05/14/2017 Status: F Source: [place] 8:10 AM [facility] REPOSITORY Order Comment: Yes/No query for Sepsis Lactate Rule Y TYPE CODE TESTS RESULT OUT OF REFERENCE UNITS RANGE LAB L503.6005 0.4-2.0 mmol/L High LACTIC ACID 2.1 Result Comment: Critical Result(s) Called at: 09:10:39 05/14/2017 by: Geni Shetty to [facility] Performed By: #### L503.6005 #### [facility] [address] [place], [place], [id number] Observed: 05/14/2017 Status: C Source: [place] RESPIRATORY PANEL 7:50 AM [facility] MOLECULAR REPOSITORY RP PANEL Normal Reference Range = Not Detected RESULTS CALLED TO ALBERTO Fowler/ICU 05/14/17 1229 Maritza Sheppard. Copy of report sent to Infection Control Printer [id number] 05/14/17 1230 DCANNON. ADENOVIRUS Not Detected HUMAN METAPHNEUMO Not Detected INFLUENZA A Not Detected INFLUENZA A (SUBTYPE H1) Not Detected INFLUENZA A (SUBTYPE H3) Not Detected INFLUENZA B Positive for INFLUENZA B by NAAT technology PARAINFLUENZA 1 Not Detected PARAINFLUENZA 2 Not Detected PARAINFLUENZA 3 Not Detected PARAINFLUENZA 4 Not Detected RHINOVIRUS Not Detected RSV A Not Detected RSV B Not Detected NAAT METHOD Testing was performed using nucleic acid amplification ORGANISM 1: INFLUENZAE B Performed By: #### M100.638 #### [facility] [address] [place], [place], [address] EMERGENCY DEPARTMENT Observed: 05/14/2017 Status: F Source: [place] SUMMARY 7:37 AM [facility] REPOSITORY [facility] Medical Records Department [address] [place] [address] Emergency Department Summary 05/14/17 0504 MR#: [id number] Acct: [id number] Name: BARI ROMERO Rep #: [id number] : 1955 61 From: Ines May MD PCP: Caesar Chavez DO Status: ADM IN - ER Visit Summary Date of Service: 05/14/17 Chief Complaint: Cough, shortness of breath History of Present Illness: The patient is a 61 M with history of COPD, coronary vascular disease presents to the emergency department with shortness of breath. The patient states over the past 3 days, he is a gradual worsening shortness of breath. Patient states over the past 12 hours, he had cough productive sputum, fevers, chills, myalgias. The patient did have prior right lobectomy for lung mass that was not cancerous. He does have chronic underlying lung condition. The patient is on Plavix but denies any other anticoagulants. He denies any sick contacts. He did not get a flu shot this year. Patient called squad because he felt like he cannot breathe. On squad arrival, the patient was 86% on room air. He has apparently tried his CPAP tonight to see if that help his breathing but it did not work. He does have some chest tightness, but feels like it is more related to his breathing. He did take a nitro with no change in his symptoms. Physical Examination: Vital signs reviewed General: Well-nourished, well-developed Head: Normocephalic, atraumatic Eyes: Pupils equal and reactive, extraocular muscles intact Neck, supple, no lymphadenopathy Heart: Regular tachycardic rate without murmur Respiratory: Moderate respiratory distress with diminished air movement and wheezing in all gamboa Abdomen: Soft, nontender, nondistended, no peritoneal signs Back: Nontender Extremities: Nontender, no edema, no cords Skin: Normal color no rash Neuro: Alert and oriented, no focal or lateralizing deficits Test Results: EKG demonstrates sinus tachycardia with some lateral ST depression. Chest x-ray demonstrates bilateral infiltrates and small effusions. Screening labs show leukocytosis, anemia, acute kidney injury, elevated lactate, and indeterminate troponin. Emergency Department Course and Treatment: Patient presents with cough, dyspnea, fever, and general malaise. Sepsis workup was pursued immediately on arrival. Patient was able to be placed on nasal cannula breathing treatments. He had improvement of his aeration, but stayed tachypneic and tachycardic. His EKG does not show acute ST elevation, and there is some lateral depression but I do feel this is likely secondary to his hypoxia and underlying metabolic deficit. Immediate blood gas was obtained which shows metabolic acidosis with respiratory compensation. Screening labs demonstrate leukocytosis and a new anemia. Unfortunately, we have no old labs to compare to. In discussion with the patient, he has had some diarrhea over the past 2 days that he said has been dark. He is on 2 different anticoagulants. I do have some suspicion that there may be GI bleed involved that is worsening his symptoms. Patient was typed and crossed for 2 units, especially given his underlying cardiac disease and evidence of endorgan dysfunction. He has acute kidney injury with no old to compare to. His lactate is mildly elevated. The patient was aggressively hydrated. He was transitioned to BiPAP for comfort with improvement. At this time, the patient is going to need ICU admission. He was discussed with Dr. Barlow. The patient was covered with vancomycin and Zosyn. His influenza was negative. The patient will be admitted for severe sepsis, GI bleed, and respiratory failure. Treatment Plan: [] Disposition: Admit to ICU Impression:. Severe sepsis 2. Acute respiratory failure 3. Bilateral pneumonia 4. GI bleed 5. Indeterminate troponin This note was generated with [employer] dictation software. It may contain incorrect words, spelling, and punctuation that were not noted in review of the chart prior to signing ED Disposition - Plan for ED Patient: Chief Complaint: Shortness of Breath Referrals: Caesar Chavez, [Primary Care Provider] - What to do if you have Problems For any increased pain, shortness of breath, bleeding, nausea or vomiting, chest pain, or any unexpected problems, contact your Primary Care Provider. Call [facility] ([phone]) or report to the closest Emergency Room. Call 911 if necessary. 05/14/17 0737 <Electronically signed by Ines May MD> Date Ines Morrison Signature (If Indicated): Date CC: Caesar Chavez DO HISTORY AND PHYSICAL Observed: 05/14/2017 Status: F Source: [place] EXAM 7:36 AM [facility] REPOSITORY [facility] Medical Records Department [address] [place] [address] History and Physical 05/14/17 0701 MR#: [id number] Acct: [id number] Name: BARI ROMERO Rep #: [id number] : 1955 61 From: Jos Marion MD PCP: Caesar Chavez DO Status: ADM IN Y Location: ICU ICU- Problem List (1) Coronary artery disease Status: Acute (2) COPD with severe acute bronchitis Status: Acute (3) Acute on chronic blood loss anemia Status: Acute (4) Benign lung tumor s/p right lobectomy Status: Acute (5) Lower GI bleed Status: Acute (6) Acute hypoxic respiratory failure Status: Acute (7) Chronic left upper extremity numbness Status: Acute (8) Hypertension Status: Chronic (9) Acute kidney injury Status: Acute (10) Diabetes mellitus type 2 in obese Status: Chronic History of Present Illness Date of Admission: 05/14/17 Chief Complaint: Acute respiratory failure, low hemoglobin severe anemia and multiple complaints The patient is a 61 year old M with multiple comorbidities as listed above came to ER with 3 days of history of progressive worsening of shortness of breath, fever with chills, respiratory distress and wheezing. Patient also said he had intermittent dark blood in the stool for last 1 or 2 weeks. As per the EMS, his heart rate was 1 40/min, respiratory 22, blood pressure 210/102 and pulse ox 86% on room air. Patient uses CPAP at night but is not on home oxygen. Besides that he has most probably right lower lobectomy most rarely for benign tumor about 10 years ago. Patient also had cardiac stents about 12 years ago in [facility]. He saw his PCP in [facility] on April 01 and at that time his A1c was 8.4. Last hemoglobin on 1226 was 8.5 g percent. Patient denies any decrease in the urine output. In ER, he was found in acute hypoxic respiratory failure is tachypnea and put on BiPAP. Since then his breathing has little improved. In ED, he was found to have acute severe anemia hemoglobin 6.3, leukocytosis with left shift, lactic acidemia, creatinine 3.25, BUN 67 suggestive of possible acute kidney injury. ABG shows mixed acid-base disorder with an anion gap metabolic acidosis, respiratory alkalosis. Patient was given 1 dose of IV vancomycin and Zosyn, 2 units of PRBC ordered and ordered to admitted in ICU. ER physician already talked with Dr. Barlow.] Past Medical History Past Medical History (Chronic Problems): Chronic Problems Hypertension (Chronic) Diabetes mellitus type 2 in obese (Chronic) Allergies No Known Allergies Allergy (Verified 05/14/17 05:00) Home Medications: Ambulatory Orders Medication Instructions Recorded Albuterol Inhaler [Ventolin Hfa 1 - 2 puff INHALATION Q6H PRN PRN 05/14/17 Smoking Status: Former smoker Review of Systems Constitutional: Reports: Anorexia, Chills, Fever, Weakness, Weight Change HEENT: Denies: Head Aches, Sinus Congestion, Sinus Drainage Cardiovascular: Denies: Chest Pain Respiratory: Reports: Cough, Shortness of Breath, Shortness of breath at rest, Shortness of breath upon exertion, Wheezing Gastrointestinal: Reports: Hematochezia. Denies: Abdominal Pain Neurological: Reports: Numbness - Chronic left upper extremity numbness after epidural anesthesia for right lower lobectomy. Denies: Focal weakness, Tingling Unable to obtain accurate/complete ROS d/t: Patient is on BiPAP and is in respiratory distress. VTE Information - Inpt Only VTE Present on Admission: No VTE Mechan Device Prophylaxis: SCD's VTE Pharm Prophylaxis ordered?: No Reason prophylaxis not ordered:: Medical Contraindication - Severe anemia Patient Problems: Active and Suspected Problems Coronary artery disease (Acute) COPD with severe acute bronchitis (Acute) Acute on chronic blood loss anemia (Acute) Benign lung tumor s/p right lobectomy (Acute) Lower GI bleed (Acute) Acute hypoxic respiratory failure (Acute) Chronic left upper extremity numbness (Acute) Acute kidney injury (Acute) - Physical Exam General: Alert, Oriented x3, Lethargic, - - Respiratory distress HEENT: Atraumatic, PERRLA, EOMI, Normocephalic Neck: Supple, No JVD, Negative Carotid Bruits Lungs: Diminished, Rhonchi, Tachypneic, Using Accessory Muscles, Wheezes Cardiovascular: Regular Rhythm, Normal S1, Normal S2, No murmurs, Tachycardic Abdomen: Bowel Sounds Present, Soft, Non Tender, Non-Distended Extremities: No edema, Capillary Refill Less than 3 Seconds Skin: No rashes, No breakdown Musculoskeletal: No Tenderness to Palpation of Joints or Extremities, Arthritic Changes Neurological: Cranial nerves II-XII grossly intact, Neuro grossly intact, - - Chronic left upper extremity numbness Psych/Mental Status: Anxious Vital Signs Temp Pulse Resp BP Pulse Ox 100.9 F H 141 H 36 H 129/70 H 99 05/14/17 06:35 05/14/17 06:35 05/14/17 06:35 05/14/17 06:35 05/14/17 06:35 Oxygen Flow Rate 5 Oxygen Delivery Method Bi-pap Weight: 257 lb 0.944 oz Body Mass Index (BMI) 33.9 Microbiology Past 72 Hours 05/14/17 04:58 Influenza Types A,B Direct FA (ИВАН) - Final Mucosa - Nasopharyngeal Laboratory Tests Past 24 Hrs WBC 12.9 H RBC 3.17 L WBC RBC Hgb Hct MCV MCH MCHC RDW RDW Differential Plt Count Assessment/Plan Active and Suspected Problems Coronary artery disease (Acute) COPD with severe acute bronchitis (Acute) Acute on chronic blood loss anemia (Acute) Benign lung tumor s/p right lobectomy (Acute) Lower GI bleed (Acute) Acute hypoxic respiratory failure (Acute) Chronic left upper extremity numbness (Acute) Acute kidney injury (Acute) The patient is a 61 year old M with multiple comorbidities as listed above came to ER with 3 days of history of progressive worsening of shortness of breath, fever with chills, respiratory distress and wheezing. Patient also said he had intermittent dark blood in the stool for last 1 or 2 weeks. As per the EMS, his heart rate was 140/min, respiratory 22, blood pressure 210/102 and pulse ox 86% on room air. Patient uses CPAP at night but is not on home oxygen. Besides that he has most probably right lower lobectomy most rarely for benign tumor about 10 years ago. Patient also had cardiac stents about 12 years ago in [facility]. He saw his PCP in [facility] on April 01, 2017 and at that time his A1c was 8.4. Last hemoglobin on 03/12 was 8.5 g percent. Patient denies any decrease in the urine output. In ER, he was found in acute hypoxic respiratory failure is tachypnea and put on BiPAP. Since then his breathing has little improved. In ED, he was found to have acute severe anemia hemoglobin 6.3, leukocytosis with left shift, lactic acidemia, creatinine 3.25, BUN 67 suggestive of possible acute kidney injury. ABG shows mixed acid-base disorder with an anion gap metabolic acidosis, respiratory alkalosis. Patient was given 1 dose of IV vancomycin and Zosyn, 2 units of PRBC ordered and ordered to admitted in ICU. ER physician already talked with Dr. Barlow.] 1. Acute hypoxic respiratory failure most rarely due to COPD exacerbation and bilateral lower lobes community-acquired pneumonia: Patient is being admitted in the ICU. Currently improving on BiPAP. Will continue. Audience Development Manager/applications project manager Dr. Barlow has been consulted. 2. SIRS WITH severe sepsis (tachycardia, tachypnea, hypoxia and lactic acidosis) due to bilateral lower lobes community-acquired pneumonia: Patient is started on IV vancomycin and Zosyn. Pneumonia workup with blood cultures 2, urinary antigens, sputum culture, and respiratory panel. 3. COPD with severe acute bronchitis: On bronchodilator, Mucinex, Solu-Medrol and incentive spirometry as per tolerated. 4. Acute on chronic severe anemia most probably from LOWER GI blood loss anemia: 2 units of PRBC ordered. Major H AND H every 8 hourly after transfusion. At this point of time, exact anatomical level of bleeding is unclear. On Protonix 40 mg IV every 12 hourly. 5. Acute kidney injury with prerenal azotemia most probably prerenal/ATN from severe sepsis: IV fluid normal saline. Monitor intake and output. Hoff catheter insertion. Nephrology consult. Avoid nephrotoxic medications. Hold nephrotoxic medications including SHAR inhibitor, NSAIDs and allopurinol and probenecid. 6. Diabetes mellitus type 2: Patient previous ANC 8.4 on April 01. Accu-Chek before meals and at bedtime and cover with NovoLog sliding scale. 7. Accelerated hypertension: Blood pressure was very high in the ER. Monitor blood pressure. On hydralazine 10 mg IV every 4 hourly as needed for systolic blood pressure more than 180 mmHg. 8. Coronary artery disease status post stents about 10-12 years ago: No chest pain. Troponin slightly elevated most probably from demand ischemia from severe sepsis. Hold aspirin, Plavix, cilostazol because of severe anemia. 9. Multiple comorbidities include right lower lobectomy from benign lung tumor, obstructive sleep apnea on CPAP, chronic left upper extremity numbness since lung surgery after epidural anesthesia. Multiple comorbidities complicates the present care and recovery. Home medication reconciliation done. Microbiology Past 72 Hours 05/14/17 04:58 Mucosa - Nasopharyngeal Influenza Types A,B Direct FA (ИВАН) - Final Laboratory Results 05/14/17 05:10: WBC 12.9 H, RBC 3.17 L, Hgb 6.3 L, Hct 22.7 L, MCV 71.6 L, MCH 19.9 L, MCHC 27.8 L, RDW 18.4 H, RDW Differential 45.1 H, Plt Count 407, MPV 10.8, Immature Gran % (Auto) 0.500, Neut % (Auto) 84.0 H, Lymph % (Auto) 8.2 L, Louisa % (Auto) 6.9, Eos % (Auto) 0.2, Baso % (Auto) 0.2, Absolute Neuts (auto) 10.8 H, Absolute Lymphs (auto) 1.05, Total Counted Not Reportable, Differential Comment SCAN, Polychromasia 1+, Hypochromasia 2+, Anisocytosis 1+, Microcytosis 1+ 05/14/17 05:10: Sodium 139, Potassium 4.8, Chloride 107, Carbon Dioxide 19.0 L, Anion Gap 13, BUN 67 H, Creatinine 3.25 H, Estim Creat Clear Calc 26.63, Est GFR (MDRD) Af Amer 25 L, Est GFR (MDRD) Non-Af 21 L, BUN/Creatinine Ratio 20.6 H, Glucose 80, Calcium 8.3 L, Troponin I 0.39 H 05/14/17 05:10: Lactic Acid 2.4 H 05/14/17 05:10: B-Natriuretic Peptide 35.2 05/14/17 05:11: Specimen Type ART, Sample Site L Radial, pH 7.32 L, Bicarbonate Actual 15.6 L, POC Total CO2 16, Base Excess -11 L, O2 Saturation 97, ABG pCO2 30.3 L, ABG pO2 92, Venkatesh Test POS, O2 Delivery Device Nasal Can, Liter Flow 5.0, Blood Gas Notified Whom ED 05/14/17 05:50: Blood Type A POSITIVE, Antibody Screen NEGATIVE, Crossmatch See Detail Clinical Impression(s) from Imaging Studies Chest X-Ray 05/14/17 04:53 IMPRESSION: There is suboptimal inspiration There are bibasilar infiltrates and small effusions larger on the RIGHT. There is NO pneumothorax. Heart is borderline enlarged. Electronically Signed: Ryan Mejia MD at 6:22 EST , Service support , Code Visit Inpatient E AND M: [id number] Init Hosp L3 05/14/17 0736 <Electronically signed by Jos Marion MD> Date Jos Marion MD Cosigner Signature: Date (if applicable) CC: Caesar Chavez DO; Jos Marion MD Signed TYPE AND SCREEN Collected: 05/14/2017 Status: F Source: [place] 5:50 AM [facility] REPOSITORY Order Comment: Has pt arrived? Y CMV NEG? N Number of units to transfuse: 2 Is pt's Hgb is </= to 7.0 mg/dl or Hct </= 21%? Y Reason for Ordering Blood: Chronic Is there symptomatic anemia? Y Are the blood/blood products to be transfused? Y Is the patient having/had surgery? N CMV NEG?* N Give When? When Ready Irradiated? N Leukodepleted? Y Reason for Type AND Screen/Red Cells: ANEMIA TYPE CODE TESTS RESULT OUT OF RANGE REFERENCE UNITS LAB B10.0800 A Normal BLOOD TYPE GEL POSITIVE LAB B100.4000 Normal Antibody NEGATIVE Screen Performed By: #### B101.7450 #### [facility] [address] [place], [place], [address] RC Collected: 05/14/2017 Status: F Source: [place] 5:50 AM [facility] REPOSITORY TYPE CODE TESTS RESULT OUT OF REFERENCE UNITS RANGE LAB U100.0000 [id number] TRANSFUSED PRODUCT: T AND S with Crossmatch, Red Cells COUNT: 2 Performed By: #### U100.0000 #### [facility] - refer to report for specific site RC Collected: 05/14/2017 Status: F Source: MALIK 5:50 AM [facility] REPOSITORY TYPE CODE TESTS RESULT OUT OF REFERENCE UNITS RANGE LAB U100.0000 [id number] TRANSFUSED PRODUCT: T AND S with Crossmatch, Red Cells COUNT: 1 Performed By: #### U100.0000 #### [facility] - refer to report for specific site Observed: 05/14/2017 Status: F Source: [place] CULTURE, BLOOD (WB) 5:50 AM [facility] REPOSITORY BC No growth in 5 days. Performed By: #### M200.1000 #### [facility] [address] [place], [place], [address] RC Collected: 05/14/2017 Status: F Source: [place] 5:50 AM [facility] REPOSITORY TYPE CODE TESTS RESULT OUT OF REFERENCE UNITS RANGE LAB U100.0000 [id number] TRANSFUSED PRODUCT: T AND S with Crossmatch, Red Cells COUNT: 1 Performed By: #### U100.0000 #### [facility] - refer to report for specific site BLOOD GASES BY CPS Collected: 05/14/2017 Status: F Source: [place]IK 5:11 AM [facility] REPOSITORY TYPE CODE TESTS RESULT OUT OF RANGE REFERENCE UNITS LAB L9000.9990 Normal BLD GAS TYPE ART LAB L9001.1000 Normal SITE L Radial LAB L9001.1010 Normal VENKATESH TEST POS LAB L9001.1050 O2 Normal Delivery Dev Nasal Can LAB L9001.1055 /min Normal LPM 5.0 LAB L9001.1104 Normal Results To ED LAB L9001.1110 7.35-7.45 Low pH - I-STAT 7.32 LAB L9001.1210 35-45 mmHg Low pCO2 - ISTAT 30.3 LAB L9001.1310 75-100 mmHG Normal PO2 I-STAT 92 LAB L9001.2300 22-26 mmol/L Low HCO3 ISTAT 15.6 LAB L9001.2400 -2 to +2 mmol/L Low BE ISTAT -11 LAB L9001.2415 mmol/L Normal TOTAL CO2 16 ISTAT LAB L9001.2425 95-99 % Normal SO2 ISTAT 97 Performed By: #### L9000.0800 #### [facility] [place] [address] CBC W/DIFF, AUTOMATED Collected: 05/14/2017 Status: F Source: [place] 5:10 AM [facility] REPOSITORY TYPE CODE TESTS RESULT OUT OF RANGE REFERENCE UNITS LAB L100.1000 4.4-11.0 K/mm3 High WBC 12.9 LAB L100.1200 4.6-6.2 M/mm3 Low RBC 3.17 LAB L100.1300 13.0-16.5 g/dl Low HGB 6.3 LAB L100.1400 40-54 % Low HCT 22.7 LAB L100.1500 80-94 fL Low MCV 71.6 LAB L100.1600 27.0-32.0 pg Low MCH 19.9 LAB L100.1700 32-36 g/gl Low MCHC 27.8 LAB L100.1810 11.6-14.6 % High RDW CV 18.4 LAB L100.1820 35.1-43.9 fl High RDW SD 45.1 LAB L100.1900 150-450 K/mm3 Normal PLT 407 LAB L100.2000 6.2-12.0 fl Normal MPV 10.8 LAB L100.2100 47-70 % High NEUT% 84.0 LAB L100.2200 19-41 % Low LY% 8.2 LAB L100.2300 0-10 % Normal MONO% 6.9 LAB L100.2400 0-5 % Normal EO% 0.2 LAB L100.2500 0-1 % Normal BASO% 0.2 LAB L100.2550 0.0-0.9 % Normal IM GRAN % 0.500 Result Comment: IG% - Immature Granulocytes (promyelocytes, myelocytes and metamyelocytes) > 1% indicates that a LEFT SHIFT is Present. LAB L100.2620 2.0-7.7 X10 3/uL Absolute Neut High 10.8 LAB L100.2720 0.83-4.51 X10 3/ul Absolute Lymph Normal 1.05 LAB L100.4500 SMEAR COMMENT Normal SCAN LAB L100.7300 ANISO Normal 1+ LAB L100.7500 POLYCHROMASIA Normal 1+ LAB L100.7600 HYPOCHROMASIA Normal 2+ LAB L100.7700 MICROCYTES Normal 1+ Performed By: #### L100.0100 #### [facility] [address] [place], [address] BASIC METABOLIC Collected: 05/14/2017 Status: F Source: [place] PROFILE (BMP) 5:10 AM [facility] REPOSITORY Order Comment: 'TROP' Serial specimen #1, #2, #3, or #4: 1 TYPE CODE TESTS RESULT OUT OF RANGE REFERENCE UNITS LAB L501.0100 74-106 mg/dL Normal GLU 80 Result Comment: Please note revised GLUCOSE reference range effective 2017. LAB L501.1000 7-18 mg/dL High BUN 67 LAB L501.1100 0.70-1.30 mg/dL High CREAT,SERUM 3.25 Result Comment: The validity of the calculated GFR AND GFRAA in patients over 70 years has not been determined. Clinical correlation is essential. LAB L501.1110 >60 mL/min Low EST GFR 21 Result Comment: Non- GFR Calc LAB L501.1115 >60 mL/min Low EST GFR - AA 25 Result Comment: GFR Calc LAB L501.1255 ml/min Normal Estimated CRCL 26.63 LAB L501.1300 10-20 RATIO High BUN/CRE 20.6 LAB L501.2200 8.5-10 mg/dL Low .1 CA 8.3 LAB L501.5300 136-14 mmol/L Normal 5 NA 139 LAB L501.5600 3.5-5. mmol/L Normal 1 K 4.8 LAB L501.5900 98-107 mmol/L Normal CL 107 LAB L501.6100 21.0-3 mmol/L Low 2.0 CO2 19.0 LAB L501.6200 5-15 Normal GAP 13 Performed By: #### L500.2500, L501.4010 #### [facility] [address] [place], [address] TROPONIN-I Collected: 05/14/2017 Status: F Source: MALIK 5:10 AM [facility] REPOSITORY Order Comment: 'TROP' Serial specimen #1, #2, #3, or #4: 1 TYPE CODE TESTS RESULT OUT OF RANGE REFERENCE UNITS LAB L501.4010 <0.06 ng/mL High 0.39 TROPONIN-I Result Comment: TROPONIN-I EXPECTED VALUES <0.05 NEGATIVE 0.06 - 0.59 AT RISK OF CA > OR = 0.60 SUGGEST CA Performed By: #### L500.2500, L501.4010 #### [facility] [address], [address] LACTIC ACID Collected: 05/14/2017 Status: F Source: [place] 5:10 AM [facility] REPOSITORY Order Comment: Yes/No query for Sepsis Lactate Rule Y TYPE CODE TESTS RESULT OUT OF REFERENCE UNITS RANGE LAB L503.6005 0.4-2.0 mmol/L High LACTIC ACID 2.4 Result Comment: Critical Result(s) Called at: 06:07:06 05/14/2017 by: Geni Andrews Performed By: #### L503.6005 #### [facility] [address] [place], [address] BNP,B-TYPE NATRIURETIC Collected: 05/14/2017 Status: F Source: [place] PEPTIDE 5:10 AM [facility] REPOSITORY TYPE CODE TESTS RESULT OUT OF RANGE REFERENCE UNITS LAB L503.6620 0-100 pg/mL Normal B-TYPE 35.2 KATHRYN PEP Performed By: #### L503.6620 #### [facility] [address] [place], [address] PROTHROMBIN TIME W/INR Collected: 05/14/2017 Status: F Source: MALIK 5:10 AM [facility] REPOSITORY TYPE CODE TESTS RESULT OUT OF RANGE REFERENCE UNITS LAB L300.4150 11.7-14.9 SECONDS Normal PROTIME 13.6 LAB L300.4200 Normal INR 1.1 Performed By: #### L300.3900, L300.4310 #### [facility] [address] [place], [address] PARTIAL THROMBOPLAST Collected: 05/14/2017 Status: F Source: MALIK TIME 5:10 AM [facility] REPOSITORY TYPE CODE TESTS RESULT OUT OF RANGE REFERENCE UNITS LAB L300.4310 24.1-36.2 Seconds Normal PTT 36.1 Performed By: #### L300.3900, L300.4310 #### [facility] [address] [place], [address] Observed: 05/14/2017 Status: F Source: [place] CULTURE, BLOOD (WB) 5:10 AM [facility] REPOSITORY BC No growth in 5 days. Performed By: #### M200.1000 #### [facility] [address] [place], [address] Observed: 05/14/2017 Status: F Source: [place] INFLUENZA A+B (RAPID 4:58 AM [facility] PERLITA) REPOSITORY Order Date: 05/14/17 FLU A/B Rapid Negative test results should be confirmed by culture. Order Rapid Viral Culture for Influenzae A+B ([id number]) if clinically indicated. Influenza Ag, Direct Presumptive NEGATIVE for Influenza A/B Antigen (See Note) Performed By: #### M101.0101 #### [facility] [address] [place], [address] CHEST 1 VIEW Observed: 05/14/2017 Status: F Source: MALIK (PORTABLE) 4:54 AM [facility] REPOSITORY [facility] Imaging Services [address] [place] [address] Chest 1 View (Portable) MR#: [id number] Acct: [id number] Name: BARI ROMERO Rep #: [id number] : 1955 M 61 From: Ryan Mejia PCP: Caesar Chavez DO Status: REG ER Study: Chest 1 View (Portable) Date of Exam: 05/14/17 Exam# [id number] Ordering Dr: Ines May MD STUDY: X-RAY CHEST REASON FOR EXAM: Male, 61 years old. Shortness of breath TECHNIQUE: Single frontal view COMPARISON: None. FINDINGS: There is suboptimal inspiration There are bibasilar infiltrates and small effusions larger on the RIGHT. There is NO pneumothorax. Heart is borderline enlarged. Normal mediastinum and elizabeth. Normal visualized pulmonary arteries. Normal visualized aortic arch and descending thoracic aorta. Normal visualized thoracic spine. There is fracture of RIGHT rib #7. There is no demonstrated abnormality of the visualized soft tissue structures of the upper abdomen. RAD/Chest 1 View (Portable) IMPRESSION: There is suboptimal inspiration There are bibasilar infiltrates and small effusions larger on the RIGHT. There is NO pneumothorax. Heart is borderline enlarged. Electronically Signed: Ryan Mejia MD at 6:22 EST , Service support , CC: Caesar Chavez DO; Ines May MD Stem Lead Former: Signed ABD AORTIC/IVC DUPLEX Observed: 03/18/2017 Status: F Source: [place] SCAN 2:41 PM [facility] REPOSITORY [facility] Cardiovascular Services [address] [place] [address] Abd Aortic/IVC Duplex scan 03/11/17 0915 MR#: [id number] Acct: [id number] Name: BARI ROMERO Rep #: [id number] : 1955 61 From: Chinedu Shafer MD Attending Dr: Chinedu Shafer MD Status: REG CLI Ordering Dr: Chinedu Shafer MD Date: 03/11/17 Location: [facility] Sex: M C Admitted: Reason For Study: I70.0 Aorta Measurements Aorta Doppler Measurements Proximal aorta measures1.69 x 1.88cm. in cross- Peak systolic flow velocities within the proximal sectional axis. aorta measure 73.0 cm/sec. Proximal aorta measures1.88cm. in longitudinal Peak systolic flow velocities within the mid axis. aorta measure 63.8 cm/sec. Mid aorta measures1.44 x 1.56cm. in cross- Peak systolic flow velocities within the distal sectional axis. aorta measure 90.3 cm/sec. Mid aorta measures1.44cm. in longitudinal axis. Distal aorta measures1.21 x 1.15cm. in cross- sectional axis. Distal aorta measures1.18cm. in longitudinal axis. Left Iliac Artery Left iliac artery measures .797 x .925 cm. in the cross-sectional axis. Left iliac artery measures .834 cm. in the longitudinal axis. Peak systolic velocity in the left iliac artery measures 105 cm/sec. Right Iliac Artery Right iliac artery measures 1.02 x 1.06 cm. in the cross-sectional axis. Right iliac artery measures .893 cm. in the longitudinal axis. Peak systolic velocity in the right iliac artery measures 117 cm/sec. Procedure The exam was diagnostic. Exam performed in department. Interpretation Summary 1. No aortoiliac aneurysm or stenosis. Ordering Physician: Chinedu Shafer Performed By: Quique Gonzalez RVT 03/18/17 1441 Date Chinedu Shafer MD CC: Chinedu Shafer MD; Caesar Chavez DO Date Dictated: 03/11/17 0915 Date Transcribed: 03/18/17 144 Stem Lead Former: Signed ARTERIAL DUPLEX US Observed: 03/18/2017 Status: F [facility] REPOSITORY [facility] Cardiovascular Services [address] [place] [address] Art Duplex US Bilat Lower Ext 03/11/17 0923 MR#: [id number] Acct: [id number] Name: BARI ROMERO Rep #: [id number] : 1955 61 From: Chinedu Shafer MD Attending Dr: Chinedu Shafer MD Status: REG CLI Ordering Dr: Chinedu Shafer MD Date: 03/11/17 Location: [facility] Sex: M C Admitted: Reason For Study: I77.1, I70.213 Right Velocities Left Velocities Common Femoral Artery, mid = 95.9 cm./sec. Common Femoral Artery, mid = 172 cm./sec. Supf Femoral Artery, prox = 113 cm./sec. Supf. Femoral Artery, prox = 503 cm./sec. Supf Femoral Artery, mid = 26.4 cm./sec. Supf. Femoral Artery, mid = 77.8 cm./sec. Supf Femoral Artery, dist. = 55.0 cm./sec. Supf. Femoral Artery, dist = 97.4 cm./sec. Profunda Femoral Artery = 154 cm./sec. Mid/ dist SFA with a velocity of 303 cm/s. Popliteal Artery, mid = 45.6 cm./sec. Profunda Femoral Artery = 179 cm./sec. Post. Tibial Artery, prox = 25.8 cm./sec. Popliteal Artery, mid = 29.9 cm./sec. Post. Tibial Artery, mid = 19.9 cm./sec. Post. Tibial Artery, prox = 45.1 cm./sec. Post. Tibial Artery, dist = 38.7 cm./sec. Post Tibial Artery, mid = 52.2 cm./sec. Ant. Tibial Artery, prox = 41.6 cm./sec. Post Tibial Artery, dist. = 51.0 cm./sec. Ant. Tibial Artery, mid = 35.8 cm./sec. Ant.Tibial Artery, prox = 308 cm./sec. Ant. Tibial Artery, dist = 44.6 cm./sec. Ant Tibial Artery, mid = 21.9 cm./sec. Unable to visualize Peroneal Artery. Ant. Tibial Artery, distal = 102 cm./sec. Large branch/ collateral at the mid SFA with a Unable to visualize Peroneal Artery. velocity of 206 cm/s. Interpretation Summary 1. right leg with possible SFA occlussion with large collateral and monophasic flow from distal SFA t foot. 2. Left SFA with severe stenosis mid with psv 303 and biphasic flow below. Ordering Physician: Chinedu Shafer Performed By: Quique Gonzalez RVT 03/18/17 1440 Date Chinedu Shafer MD CC: Chinedu Shafer MD; Caesar Chavez DO Date Dictated: 03/11/17922 Date Transcribed: 03/18/17 1440 Stem Lead Former: Signed ALLERGIES ALLERGIES DATE TYPE / CODE NAME / CODE REACTION SEVERITY SOURCE 10/14/2017 Drug No Known Unknown [facility] Allergy/416 Allergies/C67350 Hospital 266678(SNOM 0388(RXNORM) Repository ED CT) Drug NO KNOWN [facility] Class/50939 ALLERGIES Main [place] 1003(SNOMED Repository CT) ENCOUNTERS ENCOUNTERS ADMIT/DISCHARGE ACCOUNT NUMBER ADMITTING ENCOUNTER LOCATION SOURCE CLASS 03/02/2018/03/03/20 [id number] Ambulatory [address] [place] Repository 03/02/2018/03/02/20 [id number] Ambulatory [address] Repository 02/16/2018 [id number] [facility] ding:LAB.FUT Repository URE 12/04/2017/12/06/19 [id number] Ambulatory [address] [place] Repository 11/28/2017/12/02/19 [id number] Ambulatory [address] Repository 11/18/2017/11/20/19 [id number] Ambulatory [place] 18 [facility] Main [place] Repository 11/12/2017 [id number] Ambulatory [facility] ding:LAB Repository 10/17/2017/10/21/19 [id number] DUNN, [address] Repository 10/14/2017/10/15/19 [id number] Ambulatory BMSBuilding: Malik 18 [facility] Repository 10/13/2017/10/14/19 [id number] Ambulatory [address] [place] Repository 10/09/2017/10/10/19 [id number] Ambulatory [address] [place] Repository 10/09/2017/10/10/19 [id number] Ambulatory [address] [place] Repository 10/09/2017/10/10/19 [id number] Ambulatory [address] [place] Repository 10/09/2017/10/10/19 [id number] Ambulatory [address] [place] Repository 10/09/2017/10/10/19 [id number] Ambulatory [address] [place] Repository 10/09/2017/10/10/19 [id number] Ambulatory [address] [place] Repository 10/09/2017/10/10/19 [id number] Ambulatory [address] [place] Repository 10/09/2017/10/10/19 [id number] Ambulatory [address] [place] Repository 10/03/2017/10/04/19 [id number] Ambulatory [address] [place] Repository 10/03/2017/10/04/19 [id number] Ambulatory [place] 18 [facility] Main [place] Repository 10/03/2017/10/09/19 [id number] Ambulatory [address] [place] Repository 09/29/2017/09/30/19 [id number] Ambulatory [address] ding:DVST [facility] Repository 09/26/2017/10/01/19 [id number] Ambulatory [address] Repository 09/23/2017 [id number] Ambulatory [facility] ding:POLAB3 Repository 09/16/2017/09/20/19 [id number] Ambulatory BMSBuilding: Friona 18 [facility] Repository 09/15/2017/09/20/19 [id number] Sementi, Inpatient Malik Friona 18 [facility] ding:PCURoom Repository : [id number]: 1 09/15/2017 [id number] Sementi, Ambulatory BMSBuilding: Malik Alena BMS.[facility] Repository 09/15/2017/09/20/19 [id number] Ambulatory BMSBuilding: [place] 18 [facility] Repository 09/15/2017/09/20/19 [id number] Ambulatory BMSBuilding: [place] 18 [facility] Repository 09/15/2017 [id number] Ambulatory [facility] ding:LAB Repository 09/10/2017 [id number] Ambulatory BMSBuilding: [facility] Repository 09/09/2017 [id number] Ambulatory [facility] ding:PSN Repository 08/26/2017 [id number] Ambulatory [facility] ding:SL Repository 08/20/2017/08/21/19 [id number] Ambulatory [address] ding:[facility]ST [facility] Repository 08/12/2017/08/13/19 [id number] Ambulatory BMSBuilding: Malik 18 [facility] Repository 07/02/2017/07/03/19 [id number] Ambulatory BMSBuilding: [place] 18 [facility] Repository 07/01/2017/07/06/19 [id number] Ambulatory [address] ding:DROP [facility] Repository 06/26/2017 [id number] Ambulatory [facility] ding:PSN Repository 06/26/2017 [id number] Ambulatory BMSBuilding: [facility] Repository 06/17/2017 [id number] Ambulatory [facility] ding:POLAB3 Repository 06/03/2017/06/04/19 [id number] Ambulatory BMSBuilding: Malik 18 [facility] Repository 05/14/2017 [id number] Ambulatory BBuilding:[facility] Repository 05/14/2017/05/19/19 [id number] Doni, Inpatient Friona Friona 18 Jos Encounter [facility] ding:PCURoom Repository : [id number]: 1 05/14/2017 [id number] Doni, Ambulatory BMSBuilding: Malik Jos BMS.[facility] Repository 05/14/2017 [id number] Doni, Ambulatory BMSBuilding: Malik Jos BMS.CF.[facility] Repository 05/14/2017 [id number] Doni, Ambulatory BMSBuilding: Friona Jos BMS.CF.[facility] Repository 05/14/2017 [id number] Doni, Ambulatory BMSBuilding: Friona Jos BMS.CF.[facility] Repository 05/14/2017 [id number] Doni, Ambulatory BMSBuilding: Friona Jos BMS.CF.[facility] Repository 05/14/2017 [id number] Doni, Ambulatory BMSBuilding: Malik Jos BMS.CF.[facility] Repository 05/14/2017 [id number] [facility], Ambulatory BMSBuilding: Friona Jos [facility] Repository 05/14/2017 [id number] Doni, Ambulatory BMSBuilding: Friona Jos BMS.CF.[facility] Repository 05/14/2017 [id number] Doni, Ambulatory BMSBuilding: Malik Jos BMS.[facility] Repository 05/14/2017 [id number] Doni, Ambulatory BMSBuilding: Friona Jos BMS.[facility] Repository 05/14/2017 [id number] Doni, Ambulatory BMSBuilding: Friona Jos BMS.CF.[facility] Repository 05/14/2017 [id number] Doni, Ambulatory BMSBuilding: Malik Jos BMS..[facility] Repository 05/14/2017 [id number] Doni, Ambulatory BMSBuilding: Malik Jos BMS.[facility] Repository 05/14/2017 [id number] Doni, Ambulatory BMSBuilding: Malik Jos BMS.[facility] Repository 05/14/2017/05/19/19 [id number] Ambulatory BMSBuilding: [place] 18 [facility] Repository 05/12/2017/05/12/19 [id number] Ambulatory [address] ding:[facility]ST [facility] Repository 04/28/2017 [id number] Ambulatory BBuilding:DV [facility] Repository 04/18/2017/04/18/19 [id number] Ambulatory SEPIDEH [address] ding:[facility]ST [facility] Repository 04/14/2017/04/14/19 [id number] Ambulatory [address] ding:[facility]ST [facility] Repository 03/11/2017 [id number] Ambulatory Malik Malik [facility] ding:[facility] Repository PAYERS PAYERS ENCOUNTER GUARANTOR PAYER SUBSCRIBER SOURCE 02/16/2018 BARI ALCARAZ Primary BARI E Friona [place] Insurance:MEDICARE FENNERDOB: [place] PART A [facility] [id number] Hospital [address]Cxz: (330) Number: Repository [phone] () [id number] Date:2017-11-18 02/16/2018 Secondary NOT GIVENUNK Malik Insurance:SELF PAY [facility] Number: Effective Repository Date:2017-11-18 11/12/2017 BARI ALCARAZ Primary BARI E Malik [place] Insurance:MEDICARE FENNERDOB: [place] PART A [facility] [id number] Hospital [address]751Ali: (330) Number: Repository [phone] () [id number] Date:2017-11-12 11/12/2017 Secondary NOT GIVENUNK Friona Insurance:SELF PAY [facility] Number: Effective Repository Date:2017-11-12 10/14/2017 BARI ALCARAZ Primary BARI E Malik [place] Insurance:MEDICARE FENNERDOB: [place] A [facility] [id number] Hospital 17357Vla: (330) Number: Repository [phone] () [id number] Date:2017-08-12 10/14/2017 Secondary NOT GIVENUNK Malik Insurance:SELF PAY [facility] Number: Effective Repository Date:2017-10-07 09/29/2017 BARI FENNERDOB: Primary BARI FENNERDOB: [facility] Insurance:MEDICARE [id number] Foundation [place] PART BPolicy Number: [place] Repository [place], [id number] [place] [address]Aml: Date:2017-09-25 [place] [address]Sep: [id number] ()Tel: ([phone]) Name:[facility] () () Administrators LLCPO [id number] () [address] [place] [address]MA: 09/23/2017 BARI E [id number] Primary BARI E Malik [place] Insurance:MEDICARE FENNERDOB: [place] [facility] [id number] Hospital [address]Phi: (330) Number: Repository [phone] () [id number] Date:2017-09-23 09/23/2017 Secondary NOT GIVENUNK Malik Insurance:SELF PAY [facility] Number: Effective Repository Date:2017-09-23 09/16/2017 BARI E [id number] Primary BARI E Malik [place] Insurance:MEDICARE FENNERDOB: [place] PART [place] [facility] [id number] Hospital [address]Kgv: (330) Number: Repository [phone] () [id number] Date:2017-09-15 09/16/2017 Secondary NOT GIVENUNK Friona Insurance:SELF PAY [facility] Number: Effective Repository Date:2017-09-16 09/15/2017 BARI E [id number] Primary BARI E Friona [place] Insurance:MEDICARE FENNERDOB: [place] A [facility] [id number] Hospital [address]Ian: (330) Number: Repository [phone] () [id number] Date:2017-09-15 09/15/2017 Secondary NOT GIVENUNK Friona Insurance:SELF PAY [facility] Number: Effective Repository Date:2017-09-15 09/15/2017 BARI E [id number] Primary BARI E Friona [place] Insurance:MEDICARE FENNERDOB: [place] [id number] Hospital [address]Xus: (330) Number: Repository [phone] () [id number] Date:2017-09-15 09/15/2017 Secondary NOT GIVENUNK Friona Insurance:SELF PAY [facility] Hospital Number: Effective Repository Date:2017-09-15 09/15/2017 BARI E [id number] Primary BARI E Malik [place] Insurance:MEDICARE FENNERDOB: [place] A [id number] [address]Iiw: (330) Number: Repository [phone] () [id number] Date:2017-09-15 09/15/2017 Secondary NOT GIVENUNK Malik Insurance:SELF PAY [facility] Hospital Number: Effective Repository Date:2017-09-15 09/15/2017 BARI E [id number] Primary BARI E Friona [place] Insurance:MEDICARE FENNERDOB: [place] A [id number] [address]Dwc: (330) Number: Repository [phone] () [id number] Date:2017-09-15 09/15/2017 Secondary NOT GIVENUNK Friona Insurance:SELF PAY [facility] Hospital Number: Effective Repository Date:2017-09-15 09/15/2017 BARI E [id number] Primary BARI E Malik [place] Insurance:MEDICARE FENNERDOB: [place] A [facility] [id number] Hospital [address]Eny: (330) Number: Repository [phone] () [id number] Date:2017-09-15 09/15/2017 Secondary NOT GIVENUNK Friona Insurance:SELF PAY [facility] Hospital Number: Effective Repository Date:2017-09-15 09/10/2017 BARI E [id number] Primary BARI E Malik [place] Insurance:MEDICARE FENNERDOB: [place] A [facility] [id number] Hospital [address]Juj: (330) Number: Repository [phone] () [id number] Date:2017-06-03 09/10/2017 Secondary NOT GIVENUNK Friona Insurance:SELF PAY [facility] Number: Effective Repository Date:2017-09-10 09/09/2017 BARI E [id number] Primary BARI E Friona [place] Insurance:MEDICARE FENNERDOB: [place] [facility] [id number] Hospital [address]Dcs: (330) Number: Repository [phone] () [id number] Date:2017-06-03 09/09/2017 Secondary NOT GIVENUNK Malik Insurance:SELF PAY [facility] Number: Effective Repository Date:2017-06-26 08/26/2017 BARI E [id number] Primary BARI E Malik [place] Insurance:MEDICARE FENNERDOB: [place] [facility] [id number] Hospital [address]Ior: (330) Number: Repository [phone] () [id number] Date:2017-08-13 08/26/2017 Secondary NOT GIVENUNK Friona Insurance:SELF PAY [facility] Number: Effective Repository Date:2017-08-13 08/20/2017 BARI FENNERDOB: Primary BARI FENNERDOB: [place] Insurance:MEDICARE [id number] Foundation [place] PART [facility] Number: [place] Repository [facility], [id number] [place], [place] [address]Mcx: Date:2017-07-18 [place] [address]Zid: [id number] ()Tel: ([phone]) Name:GARTH () () Administrators LLCPO [phone] () [address] [place] [address]RQ: 08/12/2017 BARI E [id number] Primary BARI E Friona [place] Insurance:MEDICARE FENNERDOB: [place] [facility] [id number] Hospital [address]Gtj: (330) Number: Repository [phone] () [id number] Date:2017-06-03 08/12/2017 Secondary NOT GIVENUNK Friona Insurance:SELF PAY [facility] Number: Effective Repository Date:2017-08-08 07/02/2017 BARI E [id number] Primary BARI E Malik [place] Insurance:MEDICARE FENNERDOB: [place] [facility] [id number] Hospital [address]Fha: (330) Number: Repository [phone] () [id number] Date:2017-06-27 07/02/2017 Secondary NOT GIVENUNK Friona Insurance:SELF PAY [facility] Number: Effective Repository Date:2017-07-02 07/01/2017 BARI FENNERDOB: Primary BARI FENNERDOB: [place] Insurance:MEDICARE [id number] Foundation [place] PART [facility] Number: [place] [facility] [id number] [facility] [place] [place], [place] [address]Tdi: Date:2017-07-01 [place] [address]Ujm: [id number] ()Tel: ([phone]) Name:[facility] () Administrators LLCPO 000-0000 () [address] [place] [address]NU: 06/26/2017 BARI E [id number] Primary BARI E Friona [place] Insurance:MEDICARE FENNERDOB: [place] [facility] [id number] Hospital [address]Ymy: (330) Number: Repository [phone] () [id number] Date:2017-06-03 06/26/2017 Secondary NOT GIVENUNK Malik Insurance:SELF PAY [facility] Number: Effective Repository Date:2017-06-03 06/26/2017 BARI E [id number] Primary BARI E Malik [place] Insurance:MEDICARE FENNERDOB: [place] PART A [facility] [id number] Hospital [address]Oby: (330) Number: Repository [phone] () [id number] Date:2017-06-03 06/26/2017 Secondary NOT GIVENUNK Malik Insurance:SELF PAY [facility] Hospital Number: Effective Repository Date:2017-06-26 06/17/2017 BARI [id number] Primary BARI FENNERDOB: [place] Insurance[place]MEDICARE [id number] [facility] [address]Zuw: (330) Number: Repository [phone] () [id number] Date:2017-06-17 06/17/2017 Secondary NOT GIVENUNK Friona Insurance:SELF PAY [facility] Number: Effective Repository Date:2017-06-17 06/03/2017 BARI [id number] Primary BARI FENNERDOB: Malik [place] Insurance:MEDICARE [id number] PART [place] [facility] [address]Mno: (330) Number: Repository [phone] () [id number] Date:2017-05-29 06/03/2017 Secondary NOT GIVENUNK Friona Insurance:SELF PAY [facility] Number: Effective Repository Date:2017-05-29 05/14/2017 BARI FENNERDOB: Primary BARI FENNERDOB: [facility] Insurance:MEDICARE [id number] [place] [facility] Number: [place] Repository [facility] [id number] [place], [place] [address]Uwm: Date:2017-05-14 [place] [address]Kxf: [id number] ()Tel: [phone]) Name:[facility] () () Administrators LLCPO 000-0000 () [address] [place], [place] [address]WP: 05/14/2017 Bari [id number] Primary Bari FennerDOB: [place]ik [place] Insurance[place]MEDICARE [id number] PART [place] [facility] [address]Tal: (330) Number: Repository [phone] () [id number] Date:2017-05-14 05/14/2017 Secondary NOT GIVENUNK Malik Insurance:SELF PAY [facility] Hospital Number: Effective Repository Date:2017-05-14 05/14/2017 BARI [id number] Primary BARI FENNERDOB: Malik [place] Insurance:MEDICARE [id number] [facility] [address]Oab: (330) Number: Repository [phone] () [id number] Date:2017-05-14 05/14/2017 Secondary NOT GIVENUNK Friona Insurance:SELF PAY [facility] Hospital Number: Effective Repository Date:2017-05-14 05/14/2017 Bari [id number] Primary Bari FennerDOB: [place]iona [place] Insurance:MEDICARE [id number], [place] PART [place] [facility] [address]Vai: (330) Number: Repository [phone] () [id number] Date:2017-05-14 05/14/2017 Secondary NOT GIVENUNK Friona Insurance:SELF PAY [facility] Hospital Number: Effective Repository Date:2017-05-14 05/14/2017 Bari [id number] Primary Bari FennerDOB: [place]iona [place] Insurance:MEDICARE [id number], [place] PART [place] [facility] [address]Ugd: (330) Number: Repository [phone] () [id number] Date:2017-05-14 05/14/2017 Secondary NOT GIVENUNK Friona Insurance:SELF PAY [facility] Hospital Number: Effective Repository Date:2017-05-14 05/14/2017 Bari [id number] Primary Bari FennerDOB: Malik [place] Insurance:MEDICARE [id number] [facility] [address]Niw: (330) Number: Repository [phone] () [id number] Date:2017-05-14 05/14/2017 Secondary NOT GIVENUNK Malik Insurance:SELF PAY [facility] Number: Effective Repository Date:2017-05-14 05/14/2017 Bariiain [id number] Primary Bari FennerDOB: Malik [place] Insurance:MEDICARE [id number] Health [facility] A [facility] [address]Qsq: (330) Number: Repository [phone] () [id number] Date:2017-05-14 05/14/2017 Secondary NOT GIVENUNK Malik Insurance:SELF PAY [facility] Number: Effective Repository Date:2017-05-14 05/14/2017 Bari [id number] Primary Bari FennerDOB: Friona [place] Insurance:MEDICARE [id number] Memorial Hospital [address]Qis: (330) Number: Repository [phone] () [id number] Date:2017-05-14 05/14/2017 Secondary NOT GIVENUNK Friona Insurance:SELF PAY [facility] Number: Effective Repository Date:2017-05-14 05/14/2017 Bariiain [id number] Primary Bari FennerDOB: Friona [place] Insurance:MEDICARE [id number] Memorial Hospital [address]Psi: (330) Number: Repository [phone] () [id number] Date:2017-05-14 05/14/2017 Secondary NOT GIVENUNK Friona Insurance:SELF PAY [facility] Number: Effective Repository Date:2017-05-14 05/14/2017 Bari [id number] Primary Bari FennerDOB: [place]iona [place] Insurance:MEDICARE [id number] Memorial Hospital [address]Ick: (330) Number: Repository [phone] () [id number] Date:2017-05-14 05/14/2017 Secondary NOT GIVENUNK Malik Insurance:SELF PAY [facility] Number: Effective Repository Date:2017-05-14 05/14/2017 Bari [id number] Primary Bari FennerDOB: [place] Insurance:MEDICARE [id number] Health System A [facility] [address]Lpa: (330) Number: Repository [phone] () [id number] Date:2017-05-14 05/14/2017 Secondary NOT GIVENUNK Friona Insurance:SELF PAY [facility] Hospital Number: Effective Repository Date:2017-05-14 05/14/2017 Bari [id number] Primary Bari FennerDOB: Malik [place] Insurance:MEDICARE [id number] Health System A [facility] [address]Myu: (330) Number: Repository [phone] () [id number] Date:2017-05-14 05/14/2017 Secondary NOT GIVENUNK Malik Insurance:SELF PAY [facility] Hospital Number: Effective Repository Date:2017-05-14 05/14/2017 Bari [id number] Primary Bari FennerDOB: Friona [place] Insurance:MEDICARE [id number] Health System A [facility] [address]Njs: (330) Number: Repository [phone] () [id number] Date:2017-05-14 05/14/2017 Secondary NOT GIVENUNK Friona Insurance:SELF PAY [facility] Hospital Number: Effective Repository Date:2017-05-14 05/14/2017 Bari [id number] Primary Bari FennerDOB: Friona [place] Insurance:MEDICARE [id number] Health System A [facility] [address]Pwj: (330) Number: Repository [phone] () [id number] Date:2017-05-14 05/14/2017 Secondary NOT GIVENUNK Malik Insurance:SELF PAY [facility] Hospital Number: Effective Repository Date:2017-05-14 05/14/2017 Bari [id number] Primary Bari FennerDOB: Malik [place] Insurance:MEDICARE [id number] [facility] [address]Ldl: (330) Number: Repository [phone] () [id number] Date:2017-05-14 05/14/2017 Secondary NOT GIVENUNK Malik Insurance:SELF PAY [facility] Number: Effective Repository Date:2017-05-14 05/14/2017 Bari [id number] Primary Bari FennerDOB: Malik [place] Insurance:MEDICARE [id number] Memorial Hospital [address]Xaa: (330) Number: Repository [phone] () [id number] Date:2017-05-14 05/14/2017 Secondary NOT GIVENUNK Friona Insurance:SELF PAY [facility] Number: Effective Repository Date:2017-05-14 05/14/2017 BARIIain [id number] Primary BARI FENNERDOB: Friona [place] Insurance:MEDICARE [id number] [facility] [address]Dwb: (330) Number: Repository [phone] () [id number] Date:2017-05-14 05/14/2017 Secondary NOT GIVENUNK Malik Insurance:SELF PAY [facility] Number: Effective Repository Date:2017-05-14 05/12/2017 BARI FENNERDOB: Primary BARI FENNERDOB: [place] Insurance:MEDICARE [id number] [place] PART [facility] Number: [place] Repository [facility], [id number] [place], [place] [address]Bxc: Date:2017-05-09 [place] [address]Phv: [phone] ()Tel: ([phone]) Name:[facility] () () Administrators LLCPO 000-0000 (WP) [address] [address]Gsfhrhkhe, [place] [address]QJ: 04/28/2017 BARI FENNERDOB: Primary BARI FENNERDOB: [facility] [id number] Insurance:MEDICARE [id number] [facility] [place] Repository [place], [id number] [place], [place] [address]Aim: Date:2017-04-24 - [place] [address]Dil: [phone] (HP)Tel: (330) Name:[facility] (HP) (WP) Administrators LLCPO 000-0000 (WP) [address] [place] [address]CI: 04/18/2017 BARI FENNERDOB: Primary BARI FENNERDOB: [place] Insurance:MEDICARE [id number] [facility] Number: [place] Repository [place], [id number] [place], [place] [address]Zfx: Date:2017-04-15 - [place] [address]Vbq: [phone] (HP)Tel: (330) Name:[facility] (HP) (WP) Administrators LLCPO 000-0000 (WP) [address] [place] [address]XH: 04/14/2017 BARI FENNERDOB: Primary BARI FENNERDOB: [place] Insurance:MEDICARE [id number] [facility] Number: [place] Repository [place], [id number] [place], [place] [address]Gws: Date:2017-04-14 - [place] [address]Rax: [phone] (HP)Tel: (330) Name:[facility] (HP) (WP) Administrators LLCPO 000-0000 (WP) [address] [place] [address]OC: 03/11/2017 Bari [id number] Primary Bari FennerDOB: Malik [place] Insurance:MEDICARE [id number] [facility] [address]Xam: (330) Number: Repository [phone] () [id number] Date:2017-02-27 03/11/2017 Secondary NOT GIVENJOE Gan Insurance:SELF PAY [facility] Number: Effective Repository Date:2017-02-27
== END ==
PROVIDERS: Family Provider Family Medicine; PCP Family Medicine; Referring Provider Internal Medicine Nephrology; Visit Provider Internal Medicine Nephrology
DX: E11.22 Type 2 diabetes mellitus with diabetic chronic kidney disease (principal); N18.3 Chronic kidney disease, stage 3 (moderate); D63.1 Anemia in chronic kidney disease; N25.81 Secondary hyperparathyroidism of renal origin; E55.9 Vitamin D deficiency, unspecified
CPT/HCPCS: 36415; 80069; 82306; 82570; 83970; 84156; 85027

== ENCOUNTER 2018-05-12 09:35 | Inpatient (IN) | payer MEDICARE, SELFPAY ==
[2018-04-21 09:46] VITALS: BMI 29.9
[2018-05-12] VITALS (19 sets, daily range): BP systolic 65–107; BP diastolic 30–73; PULSE 95–126; RESP 12–29; TEMP 36–37.4; O2SAT 95–100; BMI 30.6; BMI 29.9
--- NOTE | 2018-05-12 10:09 | CT_ITS ---
STUDY: CT ABDOMEN AND PELVIS WITHOUT CONTRAST REASON FOR EXAM: Male, 62 years old. Bloody diarrhea. History of colonic carcinoma. RADIATION DOSAGE (If Supplied By Facility): CTDIvol = ( 14.68 ) mGy, DLP = ( 760.30 ) mGycm TECHNIQUE: Transaxial images were obtained from the dome of the diaphragm to the symphysis pubis without oral contrast, and without intravenous contrast. Sagittal and coronal images were reconstructed. Individualized dose optimization techniques were used for this CT. COMPARISON: Comparison is made with prior study September 18, 2017. FINDINGS: Stable scarring and there was changes in the medial segment of the right lower lobe. Stable 1.5 cm spiculated nodule in the posterior segment of the right lower lobe. Coronary artery calcification. Normal liver. Normal gallbladder and extrahepatic biliary system. Normal spleen. Normal pancreas. Normal bilateral adrenal glands. Normal right kidney. Normal left kidney. There is gastric distention due to retained food particles. Normal small intestine. The patient is status post subtotal colectomy. Anastomosis seen at the rectosigmoid junction. The appendix is visualized and appears normal. There is diffuse atherosclerotic calcification of the abdominal aorta, without a demonstrated aneurysm. Normal inferior vena cava. Normal retroperitoneum. And its major visceral branches The bladder is not well distended. There is evidence of diffuse bladder wall thickening. There is a right-sided inguinal hernia containing adipose tissue. There are diffuse degenerative changes of the visualized lumbar spine. CT/Abdomen/Pelvis without Cont IMPRESSION: Status post subtotal colectomy. No acute abnormality is seen. Electronically Signed: Herbert Carroll, at 12:47 EST , Service support ,
--- NOTE | 2018-05-12 10:09 | EKG12_ITS ---
Test Reason : GI BLEED Blood Pressure : / mmHG Vent. Rate : 103 BPM Atrial Rate : 103 BPM P-R Int : 210 ms QRS Dur : 082 ms QT Int : 312 ms P-R-T Axes : 050 088 060 degrees QTc Int : 408 ms Sinus tachycardia with 1st degree A-V block Low voltage QRS Borderline ECG Confirmed by HARSH ASIF, SARA ([id number]), avid editor A[address] TOMPKINS ([id number]) on 05/14/2018 3:45:39 PM Referred By: BRE Confirmed By:SARA HOUSE MD
[2018-05-12 10:43] LABS: Absolute Lymphocyte Count 2.64 X10^3/ul (0.83-4.51); Basophil# 0.02 X10^3/uL; Basophil% 0.1 % (0-1); Eosinophils% 11.8 % (0-5); Hematocrit 44.5 % (40-54); Hemoglobin 14.1 g/dl (13.0-16.5); Lymphocyte # 2.64 X10^3/ul (4.0); Lymphocyte % 12.6 % (19-41); Mean Corp Hgb Conc 31.7 g/gl (32-36); Mean Corpuscular Hgb 28.4 pg (27.0-32.0); Mean Corpuscular Volume 89.5 fL (80-94); Mean Platelet Vol. 12.4 fl (6.2-12.0); Monocyte# 0.81 X10^3/uL; Monocyte% 3.9 % (0-10); Neutrophil # 14.96 X10^3/uL (2.7-7.7); Neutrophil % 71.2 % (47-70); Platelet Count 286 K/mm3 (150-450); RBC Distribution Width CV 15.8 % (11.6-14.6); RBC Distribution Width SD 51.6 fl (35.1-43.9); Red Blood Count 4.97 M/mm3 (4.6-6.2)
[2018-05-12 10:47] LABS: International Normalized Ratio 1.1; Partial Thromboplast Time 30.2 Seconds (24.1-36.2); Prothrombin Time (Protime)PT. 14.3 SECONDS (11.7-14.9)
[2018-05-12 10:54] LABS: Differential Indicated SCAN CRITERIA MET; Eosinophil# 2.47 X10^3/uL; POSITIVE COUNT NO; POSITIVE DIFFERENTIAL YES; POSITIVE MORPHOLOGY NO
[2018-05-12] MEDS: 0.9% Normal Saline 1,000 ML 1000 ML IV ×2 (10:59→11:00)
[2018-05-12 11:04] LABS: Anion Gap 17 (5-15); BUN 88 mg/dL (7-18); BUN/Creat Ratio 13.4 RATIO (10-20); Calcium,Total 9.9 mg/dL (8.5-10.1); Chloride 109 mmol/L (98-107); Creatinine, Serum 6.58 mg/dL (0.70-1.30); EST Glomerular Filtration Rate 9 mL/min (>60); Est Glom Filt Rate - Afr Amer 11 mL/min (>60); Estimated Creatinine Clearance 12.61 ml/min; Glucose 279 mg/dL (74-106); Potassium 7.4 mmol/L (3.5-5.1); Sodium Level 135 mmol/L (136-145)
--- NOTE | 2018-05-12 11:05 | ED.RN ---
notified Dr. Velez- K+ 7.4 and CO2 9
[2018-05-12 11:07] LABS: Lactic Acid 2.9 mmol/L (0.4-2.0)
--- NOTE | 2018-05-12 11:07 | ED.RN ---
Dr. Velez notified of lactic 2.9
[2018-05-12 11:08] LABS: Differential Comment SCANNED
--- NOTE | 2018-05-12 11:20 | ED.DCSUM_ITS ---
- ER Visit Summary Date of Service: 05/12/18 Chief Complaint: Diarrhea History of Present Illness: The patient is a 62 M presenting with diarrhea. He states the diarrhea has been mostly watery but has had some blood. This has been ongoing for the past 3 days. He has had generalized weakness. Today he fe lt very lightheaded and near syncope. He did not have a syncopal episode. He denies chest pain or shortness of breath. He has a history of colon cancer and partial colectomy. He declined chemotherapy following surgery. He is on Plavix. He is a smoker. Physical Examination: Blood pressure 65/30, satting 98.7, heart rate 117, respiratory 24, pulse ox 98% on room air. Alert no acute distress. HEENT exam dry mucous membranes Neck is supple. Lungs are clear and equal bilaterally. Heart is regular rate and rhythm. Abdomen is soft nontender nondistended. External hemorrhoids Extremities are unremarkable. Skin is warm and dry. No focal neurologic deficit. Remainder of exam is unremarkable. Emergency Department Course and Treatment: Patient was given IV fluids. EKG is sinus rate of 103. CBC shows white count 21.0. Chemistries show potassium 7.4, glucose 279, BUN 88, creatinine 6.58. Previous creatinine 2.60. INR 1.1. Lactic acid 2.9. Patient was given calcium gluconate, albuterol, insulin, glucose for hyperkalemia. CT abd/pelvis shows status post subtotal colectomy. No acute abnormality is seen. His systolic is low 90s after 2 L. Discussed with hospitalist, ICU, nephrology. Patient will be admitted to the ICU. Disposition: Admission Impression: Acute renal failure, diarrhea, leukocytosis, dehydration, hyperkalemia This note was generated with [employer] dictation software. It may contain incorrect words, spelling, and punctuation that were not noted in review of the chart prior to signing ED Disposition - Plan for ED Patient:
[2018-05-12] MEDS: Calcium Gluconate 1 GM/10 ML Vial IV (11:32)
[2018-05-12] MEDS: Dextrose 50%-Water 25 GM/50 ML DISP.SYRIN IV (11:32)
[2018-05-12] MEDS: Albuterol 2.5 MG/3 ML VIAL.NEB. INHALATION (11:33)
[2018-05-12] MEDS: 0.9% Normal Saline 1,000 ML 999 ML IV (13:17)
--- NOTE | 2018-05-12 13:36 | NURSING ---
ICU 2 HYPERKALEMIA
--- NOTE | 2018-05-12 14:10 | PCM.HP.STD ---
Problem List (1) Gastroenteritis Status: Acute (2) Severe sepsis Status: Acute (3) NICK (acute kidney injury) Status: Acute (4) CKD (chronic kidney disease) stage 4, GFR 15-29 ml/min Status: Chronic (5) Nicotine abuse Status: Chronic (6) Stage 3 severe COPD by GOLD classification Status: Chronic Comment: FEV1 37% predicted (7) Peripheral vascular disease Status: Chronic (8) Metabolic acidosis Status: Acute (9) Paroxysmal atrial fibrillation Status: Chronic (10) LADARIUS (obstructive sleep apnea) Status: Chronic (11) Gout Status: Chronic (12) Coronary artery disease Status: Chronic Comment: has had 3 stents.....the last stent he thinks in 2008 (13) Hypertension Status: Chronic (14) Diabetes mellitus type 2 in obese Status: Chronic History of Present Illness Date of Admission: 05/12/18 Chief Complaint: diarrhea The patient is a 62 year old M with pmhx of CKDIV, CAD prior CABG/Stents, COPD, ongoing nicotine abuse, HTN, HLD, Paroxysmal Afib, colon cancer in remission, iron deficiency anemia, LADARIUS, gout, PVD, T2DM, who presents to the ER with copious watery stools. This has been going on for the past 5 days, he goes about every hour. He has had 1 episode of vomiting yesterday. No abdominal pain. He noticed some small amount of red blood in the stool but attributes it to his hemorrhoids. He came to the ER and appeared to be septic and with acute kidney failure. He has stage 4 kidney failure for which he follows Dr. Magana. He denies sick contacts. He does drink from a spring - direct from the water source. His is not ill. No recent travel. No farm animals. No fever or chills. No cough or SOB. No Chest pain. He has recently started smoking again. [] Past Medical History Past Medical History (Chronic Problems): Chronic Problems (Last Reviewed 04/21/18 @ 09:45 by Yaquelin Simpson) CKD (chronic kidney disease) stage 4, GFR 15-29 ml/min (Chronic) Nicotine abuse (Chronic) Nicotine dependence, cigarettes, in remission (Chronic) Stage 3 severe COPD by GOLD classification (Chronic) FEV1 37% predicted Heme + stool (Chronic) Anemia of chronic renal failure (Chronic) H/O pneumonectomy (Chronic) Right due to benign tumor Peripheral vascular disease (Chronic) COPD (chronic obstructive pulmonary disease) (Chronic) Radiculopathy affecting upper extremity (Chronic) Iron deficiency anemia (Chronic) Increased PTH level (Chronic) Low vitamin D level (Chronic) Paroxysmal atrial fibrillation (Chronic) Chronic renal failure, stage 4 (severe) (Chronic) Nocturnal hypoxia (Chronic) Noncompliance with CPAP treatment (Chronic) LADARIUS (obstructive sleep apnea) (Chronic) Gout (Chronic) History of tobacco abuse (Chronic) quit in April 2017 Hx of CABG (Chronic) x3 2004 Coronary artery disease (Chronic) has had 3 stents.....the last stent he thinks in 2008 Hypertension (Chronic) Diabetes mellitus type 2 in obese (Chronic) Non-STEMI (non-ST elevated myocardial infarction) (Chronic) Medical History: Medical History (Last Reviewed 04/21/18 @ 09:45 by Yaquelin Simpson) Nicotine dependence, cigarettes, in remission (Chronic) F17.211 Heme + stool (Chronic) R19.5 Acute renal failure superimposed on stage 4 chronic kidney disease (Acute) N17.9, N18.4 Radiculopathy affecting upper extremity (Chronic) M54.10 Iron deficiency anemia (Chronic) D50.9 Increased PTH level (Chronic) E34.9 Metabolic acidosis (Acute) E87.2 Low vitamin D level (Chronic) E55.9 Paroxysmal atrial fibrillation (Chronic) I48.0 Chronic renal failure, stage 4 (severe) (Chronic) N18.4 Nocturnal hypoxia (Chronic) G47.34 Noncompliance with CPAP treatment (Chronic) Z91.14 LADARIUS (obstructive sleep apnea) (Chronic) G47.33 Gout (Chronic) M10.9 History of tobacco abuse (Chronic) Z87.891 quit in April 2017 Coronary artery disease (Chronic) I25.10 has had 3 stents.....the last stent he thinks in 2008 Hypertension (Chronic) I10 Diabetes mellitus type 2 in obese (Chronic) E11.69, E66.9 Non-STEMI (non-ST elevated myocardial infarction) (Chronic) I21.4 Colon cancer C18.9 Acute exacerbation of chronic obstructive pulmonary disease (COPD) (Resolved) J44.1 Acute respiratory failure with hypoxemia (Resolved) J96.01 Influenza B (Resolved) J10.1 Lower GI bleed (Resolved) K92.2 Severe sepsis (Resolved) A41.9, R65.20 Streptococcal pneumonia (Resolved) J15.4 Urinary retention due to benign prostatic hyperplasia (Resolved) N40.1, R33.8 NSAID long-term use (Inactive) Z79.1 Allergies No Known Allergies Allergy (Verified 04/21/18 09:45) Home Medications: Ambulatory Orders Medication Instructions Recorded Aspirin 81 mg PO DAILY 05/14/17 Insulin Aspart [Novolog Flexpen] 20 units SC TIDCM 05/14/17 Insulin Degludec [Tresiba 40 - 50 unit SC BID 05/14/17 Flextouch U-100] Nitroglycerin [Nitrostat] 0.4 mg SUBLINGUAL Q5M PRN 05/14/17 Oxycodone [Oxyir] 5 mg PO BID PRN PRN 05/14/17 Simvastatin 80 mg PO QHS 05/14/17 Oxygen, Home [Home Oxygen] 2 - 3 lpm NASAL UD #1 unit 05/18/17 Albuterol Aerosols [Ventolin 2.5 mg INHALATION Q4H PRN PRN 09/15/17 Aerosols] Allopurinol [Zyloprim] 300 mg PO DAILY 09/15/17 Cilostazol 50 mg PO BID 09/15/17 Colchicine 0.6 mg PO TID PRN 09/15/17 Ergocalciferol [Vitamin D] 50,000 unit PO Q7D 09/15/17 Finasteride [Proscar] 5 mg PO DAILY 09/15/17 Isosorbide Mononitrate [Imdur] 30 mg PO DAILY 09/15/17 Metoprolol(XL)Succ [Toprol Xl 50 mg PO DAILY 09/15/17 (Beta Vanesa)] Nebulizer [Aeroneb Go Nebulizer] 1 ea MC 4X/DAY 09/15/17 Pantoprazole Sodium [Protonix] 40 mg PO DAILY 09/15/17 Tamsulosin HCl [Flomax] 0.4 mg PO DAILY@1730 09/15/17 hydrALAZINE [Apresoline] 25 mg PO TID 09/15/17 losartan 25 mg tablet 50 mg PO DAILY 04/21/18 umeclidinium 62.5 mcg/actuation 1 inh INHALATION QDAY #30 ea 04/22/18 blister powder for inhalation Albuterol Inhaler [Ventolin Hfa 1 - 2 puff INHALATION Q4H PRN PRN 05/12/18 (SP)] Diazepam [Valium] 5 mg PO DAILY PRN 05/12/18 Sodium Bicarbonate 650 mg PO BID 05/12/18 Surgical History: Surgical History (Last Updated 04/21/18 @ 09:51 by Yaquelin Simpson) Hx of CABG (Chronic) Z95.1 x3 2003 H/O colectomy Z90.49 3/4 of colon, 12/2017, Dr. Alvarado with [facility] S/P removal of lung Z90.2 3/4 of right lung was removed by Dr. Todd in [facility] 11/2009 Surgical History: angioplasty - stent x2 2003, - - rt lung thoracotomy, lobectomy 2009 for benign tumor Psychiatric History: No pertinent psych hx Lives: Spouse/ Significant Other Smoking Status: Current some day smoker Tobacco Use: Cigarettes Alcohol: None Drugs: None - *Family History Maternal Family History: Family History (Last Reviewed 04/21/18 @ 09:45 by Yaquelin Simpson) Father Leukemia Mother COPD (chronic obstructive pulmonary disease) History Items: COPD Paternal Family History: Family History (Last Reviewed 04/21/18 @ 09:45 by Yaquelin Simpson) Father Leukemia Mother COPD (chronic obstructive pulmonary disease) History Items: Cancer - leukemia, Hypertension Review of Systems Constitutional: Reports: Weakness, Fatigue. Denies: Chills, Fever, Weight Change HEENT: Denies: Head Aches, Sinus Congestion, Sinus Drainage Cardiovascular: Denies: Chest Pain, Palpitations Respiratory: Denies: Cough, Shortness of breath at rest, Sputum production Gastrointestinal: Reports: Diarrhea, Nausea, Vomiting. Denies: Abdominal Pain Genitourinary: Denies: Dysuria Musculoskeletal: Denies: Joint Pain, Joint Tenderness Skin: Denies: Rash, Wounds Neurological: Denies: Numbness, Tingling, Focal weakness Psychiatric: Denies: Anxiety, Depression, Homicidal Ideations, Suicidal Ideations Hematologic/ Lymphatic: Denies: Easy Bruising, Easy Bleeding VTE Information - Inpt Only VTE Present on Admission: No VTE Mechan Device Prophylaxis: None VTE Pharm Prophylaxis ordered?: Yes Patient Problems: Active and Suspected Problems (Last Reviewed 04/21/18 @ 09:45 by Yaquelin Simpson) Gastroenteritis (Acute) Severe sepsis (Acute) NICK (acute kidney injury) (Acute) - Physical Exam General: Alert, Oriented x3, Cooperative HEENT: Atraumatic, PERRLA, EOMI, Normocephalic Neck: Supple, No JVD, Negative Carotid Bruits Lungs: Clear to auscultation, Normal air movement Cardiovascular: Regular rate, No murmurs Abdomen: Bowel Sounds Present, Soft, Non Tender Extremities: No edema, Capillary Refill Less than 3 Seconds Skin: No rashes, No breakdown Musculoskeletal: No Tenderness to Palpation of Joints or Extremities Neurological: Cranial nerves II-XII grossly intact Psych/Mental Status: Normal Affect, Appropriate, Alert and oriented to time, place, person, mood and affect Vital Signs Temp Pulse Resp BP Pulse Ox 97.8 F 98 15 79/57 L 95 05/12/18 13:00 05/12/18 13:00 05/12/18 13:00 05/12/18 13:00 05/12/18 13:00 Oxygen Delivery Method Room Air Weight: 226 lb Body Mass Index (BMI) 30.6 Microbiology Past 72 Hours 05/12/18 11:12 Stool Occult Blood (ИВАН) - Final Stool Occult Blood Positive Laboratory Tests Past 24 Hrs 05/12/18 05/12/18 05/12/18 10:32 10:32 10:32 WBC 21.0 H RBC 4.97 Hgb 14.1 Hct 44.5 MCV 89.5 MCH 28.4 MCHC 31.7 L RDW 15.8 H RDW Differential 51.6 H Plt Count 286 MPV 12.4 H Immature Gran % (Auto) 0.400 Neut % (Auto) 71.2 H Lymph % (Auto) 12.6 L [place] % (Auto) 3.9 Eos % (Auto) 11.8 H Baso % (Auto) 0.1 Absolute Neuts (auto) 15.0 H Absolute Lymphs (auto) 2.64 Total Counted Not Reportable Differential Comment SCANNED PT 14.3 INR 1.1 APTT 30.2 Sodium 135 L Potassium 7.4 H* Chloride 109 H Carbon Dioxide 9.0 L* Anion Gap 17 H BUN 88 H Creatinine 6.58 H Estim Creat Clear Calc 12.61 Est GFR (MDRD) Af Amer 11 L Est GFR (MDRD) Non-Af 9 L BUN/Creatinine Ratio 13.4 Glucose 279 H Lactic Acid Calcium 9.9 05/12/18 10:32 WBC RBC Hgb Hct MCV MCH MCHC RDW RDW Differential Plt Count MPV Immature Gran % (Auto) Neut % (Auto) Lymph % (Auto) [place] % (Auto) Eos % (Auto) Baso % (Auto) Absolute Neuts (auto) Absolute Lymphs (auto) Total Counted Differential Comment PT INR APTT Sodium Potassium Chloride Carbon Dioxide Anion Gap BUN Creatinine Estim Creat Clear Calc Est GFR (MDRD) Af Amer Est GFR (MDRD) Non-Af BUN/Creatinine Ratio Glucose Lactic Acid 2.9 H Calcium Assessment/Plan All Active Problems (Last Reviewed 04/21/18 @ 09:45 by Yaquelin Simpson) Gastroenteritis (Acute) Severe sepsis (Acute) NICK (acute kidney injury) (Acute) Hyperkalemia (Acute) Acute renal failure superimposed on stage 4 chronic kidney disease (Acute) Metabolic acidosis (Acute) Acute exacerbation of chronic obstructive pulmonary disease (COPD) (Resolved) Acute respiratory failure with hypoxemia (Resolved) Benign neoplasm of right lung (Resolved) Influenza B (Resolved) Lower GI bleed (Resolved) Severe sepsis (Resolved) Streptococcal pneumonia (Resolved) Urinary retention due to benign prostatic hyperplasia (Resolved) 1. Acute severe sepsis 2/2 acute gastroenteritis - sepsis evidenced by Leukocytosis, lactic acidosis, tachycardia, NICK. He was initially hypotensive but has improved to 96/65 on last check MAP of 77 with IV fluid resuscitation. CT abdomen showed prior subtotal colectomy. Diarrhea x 5 days every hour described as watery. Provide Zosyn. IV fluids. Antiemetics. Check Stool lacto, ova/parastites, Cdiff, enteric panel. Diet as tolerated. -no sick contacts -no farm animals -no recent travel -no hx C diff - Drinks from a spring. 2. NICK on CKDIV with acute metabolic acidosis, hyperkalemia - Consult Dr. Magana plan for dialysis tonight. Gap 17. K 7.4. Received calcium gluconate. 3. Paroxysmal Afib - EKG SR 1st degree AV block 4. Hx CAD prior CABG 2003 /Stents 1994 follows [facility]. 5. COPD no acute exacerbation with ongoing nicotine abuse - prn aerosols 6. LADARIUS 7. DMt2 - titrate insulin, SSI 8. HLD - statin 9. Colon cancer in remission since Dec 2017 s/p partial colectomy. Also partial Right lobectomy DVT ppx: heparin DC planning: PTOT This patient was seen by Jono Braxton PA-C under the supervision of Doctor Rincon.
[2018-05-12 14:38] LABS: Reflex Lactate? Y
--- NOTE | 2018-05-12 14:38 | CASEMGMT ---
RN CM Assessment Introduced role of RN CM to patient. Patient is alert, oriented and able to participate in RN CM Assessment. Care providers, pharmacy, and demographics verified. Presentation: Admitted for Hyperkalemia and NICK. CC: Bloody Diarrhea. H/o Colon CA & Partial Colectomy. PCP: Dr Caesar Chavez Specialists: Pulm- Dr Trace Barlow, Nephro- Dr Monica Magana, @ [facility]- Dr Alvarado did Colectomy. Preferred Pharmacy: [facility] Insurance: Medicare A&B Prescription Benefit: Yes LNOK: Eva Romero Living Arrangements: Patient Disabled, Lives in a mobile home with , 5 steps to enter. Usually ambulates independently but utilizes a walker when needed. Independent with ADL's. Has a sister in [place] and a sister in [place] who could assist with care needs if needed. States a neighbor mows for him and checks on him and could help as well. Transportation: Patient normally drives, him and share a car but car broke x1 week ago and needs fixed which patient cannot afford. States his sister Vita #[phone] on [place]. DME: Home O2 2.5L prn from [employer], Nebulizer, Glucometer, Walker, Cane. Prefers [facility]. HHC: None in past, no preference on Agency. SNF: None in past, no preference on facility. DC PLAN: Home, Possible HH IV ABX, Possible HD BORIS Yip.
--- NOTE | 2018-05-12 15:54 | PCM.CONS.R ---
Consultation - Renal 05/12/18 PCP/ Referring MD: Requesting physician: [] Primary care physician: Casear Chavez Reason for Consultation:: Acute renal failure, hyperkalemia, CKD stage IV - History of Present Illness History of Present Illness: The patient is a 62 year old M well known to me with CKD stage IV due to diabetes, history of CAD with prior CABG/Stents, COPD, ongoing nicotine abuse, HTN, HLD, Paroxysmal Afib, colon cancer in remission, iron deficiency anemia, LADARIUS, gout, PVD, T2DM, who presents to the ER with copious watery stools for the past week. He has about 8 episodes a day. He noticed blood on his toilet paper with wiping. He denied any gross hematochezia or melena. He was told that he had hemorrhoids. He complains of discomfort with wiping. He denies any nausea or vomiting with his diarrhea. Denies any fever chills or abdominal pain. Upon arrival to emergency room he was found to be in acute kidney failure. Creatinine was elevated at 6.8 with baseline creatinine at 2.3 in October 2017, 2.6 in February 2018. He is on losartan at home. He denied any NSAID use. Potassium on admission was 7.4 with narrow QRS complexes on monitor. He denied any chest pain but did notice leg weakness, difficulty walking to the bathroom even with a walker. He had some lightheadedness but denies syncope. Blood pressure was low in the 60s systolic on presentation to the emergency room. He received IV fluid bolus along with medical management for his hyperkalemia. He has been drinking [place] at home. He denies sick contacts. He does drink from a spring - direct from the water source. - Allergies Allergies: Allergies No Known Allergies Allergy (Verified 04/21/18 09:45) - Current Medications Current Medications: Current Medications Acetaminophen (Tylenol) 650 mg PO Q6H PRN PRN PRN Reason: PAIN Albuterol Sulfate (Ventolin Aerosols) 2.5 mg INHALATION Q4H PRN PRN Reason: SOB AND OR WHEEZING Albuterol/Ipratropium (Duoneb) 3 ml INHALATION Q6HWA.RT [facility] Allopurinol (Zyloprim) 300 mg PO DAILY [facility] Aspirin (Aspirin, Baby) 81 mg PO DAILY@0800 [facility] Atorvastatin Calcium (Lipitor) 40 mg PO QHS [facility] Colchicine (Colchicine) 0.6 mg PO TID PRN PRN PRN Reason: GOUT Dextrose (D50w Syringe) 0 gm IV X1 PRN; Protocol PRN Reason: Hypoglycemia Diazepam (Valium) 5 mg PO DAILY PRN PRN Reason: ANXIETY Finasteride (Proscar) 5 mg PO DAILY ZACH Glucagon () 1 mg IM .X1 PRN PRN Reason: Hypoglycemia Piperacillin Sod/Tazobactam (Sod 3.375 gm/ Sodium Chloride) 50 mls @ 12.5 mls/hr IV Q12 [facility] Sodium Bicarbonate 150 meq/ (Dextrose) 1,150 mls @ 150 mls/hr IV .Q7H40M [facility]ACH Insulin Human Lispro (Humalog Kwikpen (Bkc)) 0 unit SC ACHS ZACH; Protocol Insulin Human Lispro (Humalog Kwikpen (Bkc)) 20 unit SC TIDCM [facility] Non-Formulary Medication (Insulin Degludec) 40 - 50 unit SC BID [facility] Ondansetron HCl (Zofran) 4 mg IV Q6H PRN PRN PRN Reason: NAUSEA Pantoprazole Sodium (Protonix) 40 mg PO DAILY [facility] Sodium Chloride () 5 - 15 ml IV UD PRN PRN Reason: SALINE FLUSH Tamsulosin HCl (Flomax) 0.4 mg PO DAILY@1730 [facility] - Past Medical History Past Medical History (Chronic Problems): Chronic Problems (Last Reviewed 04/21/18 @ 09:45 by Yaquelin Simpson) CKD (chronic kidney disease) stage 4, GFR 15-29 ml/min (Chronic) Nicotine abuse (Chronic) Nicotine dependence, cigarettes, in remission (Chronic) Stage 3 severe COPD by GOLD classification (Chronic) FEV1 37% predicted Heme + stool (Chronic) Anemia of chronic renal failure (Chronic) H/O pneumonectomy (Chronic) Right due to benign tumor Peripheral vascular disease (Chronic) COPD (chronic obstructive pulmonary disease) (Chronic) Radiculopathy affecting upper extremity (Chronic) Iron deficiency anemia (Chronic) Increased PTH level (Chronic) Low vitamin D level (Chronic) Paroxysmal atrial fibrillation (Chronic) Chronic renal failure, stage 4 (severe) (Chronic) Nocturnal hypoxia (Chronic) Noncompliance with CPAP treatment (Chronic) LADARIUS (obstructive sleep apnea) (Chronic) Gout (Chronic) History of tobacco abuse (Chronic) quit in April 2017 Hx of CABG (Chronic) x3 2004 Coronary artery disease (Chronic) has had 3 stents.....the last stent he thinks in 2008 Hypertension (Chronic) Diabetes mellitus type 2 in obese (Chronic) Non-STEMI (non-ST elevated myocardial infarction) (Chronic) - Past Surgical History Surgical History: angioplasty - stent x2 2003, - - rt lung thoracotomy, lobectomy 2009 for benign tumor - Social History Smoking Status: Current some day smoker Alcohol: None Drugs: None - Family History Maternal Family History: Family History (Last Reviewed 04/21/18 @ 09:45 by Yaquelin Simpson) Father Leukemia Mother COPD (chronic obstructive pulmonary disease) History Items: COPD Paternal Family History: Family History (Last Reviewed 04/21/18 @ 09:45 by Yaquelin Simpson) Father Leukemia Mother COPD (chronic obstructive pulmonary disease) History Items: Cancer - leukemia, Hypertension Review of Systems Constitutional: Reports: Weakness, Fatigue. Denies: Anorexia, Chills, Fever Eyes: Denies: Vision Change HEENT: Denies: Head Aches Cardiovascular: Reports: Light Headedness. Denies: Chest Pain, Edema, Syncope Respiratory: Denies: Cough, Shortness of Breath Gastrointestinal: Reports: Diarrhea - 8 loose stools watery a day past week, - - Blood toilet paper with wiping. Denies: Abdominal Pain, Hematemesis, Hematochezia, Nausea, Melena, Vomiting Genitourinary: Reports: - - Decreased urine output. Denies: Dysuria Musculoskeletal: Reports: - - No leg swelling. Denies: Back Pain Skin: Denies: Rash Neurological: Reports: Balance problems, - - Leg weakness. Denies: Tremor, Seizures Psychiatric: Denies: Anxiety, Depression Hematologic/ Lymphatic: Denies: Anemia, Hx of blood clot Patient Problems: Active and Suspected Problems (Last Reviewed 04/21/18 @ 09:45 by Yaquelin Simpson) Gastroenteritis (Acute) Severe sepsis (Acute) NICK (acute kidney injury) (Acute) - Physical Exam General: Alert, Oriented x3, Cooperative, No apparent distress HEENT: PERRLA, EOMI Oral: Dry Mucosa Neck: Supple Lungs: Clear to auscultation Cardiovascular: No rub noted, Tachycardic Abdomen: Bowel Sounds Present, Soft, Non Tender, Non-Distended Extremities: No edema Skin: No rashes Neurological: - - no asterixis Psych/Mental Status: Normal Affect, Appropriate, Alert and oriented to time, place, person, mood and affect Vital Signs Temp Pulse Resp BP Pulse Ox 96.8 F L 104 H 16 94/56 L 100 05/12/18 14:24 05/12/18 15:12 05/12/18 15:00 05/12/18 15:00 05/12/18 15:00 Oxygen Delivery Method Room Air Weight: 100.2 kg Body Mass Index (BMI) 29.9 Microbiology Past 72 Hours 05/12/18 12:40 C. difficile DNA Amplification - Final Stool 05/12/18 11:12 Stool Occult Blood (ИВАН) - Final Stool Occult Blood Positive Laboratory Tests Past 24 Hrs 05/12/18 05/12/18 05/12/18 10:32 10:32 10:32 WBC 21.0 H RBC 4.97 Hgb 14.1 Hct 44.5 MCV 89.5 MCH 28.4 MCHC 31.7 L RDW 15.8 H RDW Differential 51.6 H Plt Count 286 MPV 12.4 H Immature Gran % (Auto) 0.400 Neut % (Auto) 71.2 H Lymph % (Auto) 12.6 L [place] % (Auto) 3.9 Eos % (Auto) 11.8 H Baso % (Auto) 0.1 Absolute Neuts (auto) 15.0 H Absolute Lymphs (auto) 2.64 Total Counted Not Reportable Differential Comment SCANNED PT 14.3 INR 1.1 APTT 30.2 Sodium 135 L Potassium 7.4 H* Chloride 109 H Carbon Dioxide 9.0 L* Anion Gap 17 H BUN 88 H Creatinine 6.58 H Estim Creat Clear Calc 12.61 Est GFR (MDRD) Af Amer 11 L Est GFR (MDRD) Non-Af 9 L BUN/Creatinine Ratio 13.4 Glucose 279 H Lactic Acid Calcium 9.9 05/12/18 10:32 WBC RBC Hgb Hct MCV MCH MCHC RDW RDW Differential Plt Count MPV Immature Gran % (Auto) Neut % (Auto) Lymph % (Auto) [place] % (Auto) Eos % (Auto) Baso % (Auto) Absolute Neuts (auto) Absolute Lymphs (auto) Total Counted Differential Comment PT INR APTT Sodium Potassium Chloride Carbon Dioxide Anion Gap BUN Creatinine Estim Creat Clear Calc Est GFR (MDRD) Af Amer Est GFR (MDRD) Non-Af BUN/Creatinine Ratio Glucose Lactic Acid 2.9 H Calcium Clinical Impression(s) from Imaging Studies Abdomen/Pelvis CT 05/12/18 10:09 IMPRESSION: Status post subtotal colectomy. No acute abnormality is seen. Electronically Signed: Herebrt Carroll, at 12:47 EST , Service support , Assessment/Plan All Active Problems (Last Reviewed 04/21/18 @ 09:45 by Yaquelin Simpson) Gastroenteritis (Acute) Severe sepsis (Acute) NICK (acute kidney injury) (Acute) Hyperkalemia (Acute) Acute renal failure superimposed on stage 4 chronic kidney disease (Acute) Metabolic acidosis (Acute) Acute exacerbation of chronic obstructive pulmonary disease (COPD) (Resolved) Acute respiratory failure with hypoxemia (Resolved) Benign neoplasm of right lung (Resolved) Influenza B (Resolved) Lower GI bleed (Resolved) Severe sepsis (Resolved) Streptococcal pneumonia (Resolved) Urinary retention due to benign prostatic hyperplasia (Resolved) 1. Acute on chronic disease stage IV underlying diabetic nephropathy. Acute event likely due to dehydration, GI loss, hypotension. Currently oliguric with fluid loss predominantly through GI. Continue with aggressive IV fluis resuscitation for tachycardia with hypotension. Oxygenation stable. Check urine sodium and creatinine to evaluate FENA for prerenal vs ATN. Hold on dialysis at this time. Cycle labs. Telemetry with narrow QRS complexes. Monitor strict urine output. CT abdomen on admit with normal appearing kidneys bilaterally. 2. Acute anion gap metabolic acidosis with hypotension likely due to severe dehydration, GI loss, renal failure. Bicarbonate level 9 on admit. Start bicarb drip 3. Severe hyperkalemia likely due to renal failure, increase potassium intake from drinking [place]. Hold losartan for now. Give Kayexalate x1. Continue with bicarb infusion 4. watery diarrhea check stool for enteric pathogens 5. DM type II primary care management 6. Hypotension with lactic acidosis evaluate for sepsis. Leukocytosis without fever. Continue to hold blood pressure medications 7. CAD s/p CABG, stents/ Currently without symptoms 8. Lower extremity weakness likely due to hyperkalemia 9. Serial BMPs to monitor potassium and renal function. Strict I&O's. Discussed with hospitalist.
--- NOTE | 2018-05-12 16:01 | CON.PCM_ITS ---
Consultation - Renal 05/12/18 PCP/ Referring MD: Requesting physician: [] Primary care physician: Caesar Chavez Reason for Consultation:: Acute renal failure, hyperkalemia, CKD stage IV - History of Present Illness History of Present Illness: The patient is a 62 year old M well known to me with CKD stage IV due to diabetes, history of CAD with prior CABG/Stents, COPD, ongoing nicotine abuse, HTN, HLD, Paroxysmal Afib, colon cancer in remission, iron deficiency anemia, LADARIUS, gout, PVD, T2DM, who presents to the ER with copious watery stools for the past week. He has about 8 episodes a day. He noticed blood on his toilet paper with wiping. He denied any gross hematochezia or melena. He was told that he had hemorrhoids. He complains of discomfort with wiping. He denies any nausea or vomiting with his diarrhea. Denies any fever chills or abdominal pain. Upon arrival to emergency room he was found to be in acute kidney failure. Creatinine was elevated at 6.8 with baseline creatinine at 2.3 in October 2017, 2.6 in February 2018. He is on losartan at home. He denied any NSAID use. Potassium on admission was 7.4 with narrow QRS complexes on monitor. He denied any chest pain but did notice leg weakness, difficulty walking to the bathroom even with a walker. He had some lightheadedness but denies syncope. Blood pressure was low in the 60s systolic on presentation to the emergency room. He received IV fluid bolus along with medical management for his hyperkalemia. He has been drinking Camargo at home. He denies sick contacts. He does drink from a spring - direct from the water source. - Allergies Allergies: Allergies No Known Allergies Allergy (Verified 04/21/18 09:45) - Current Medications Current Medications: Current Medications Acetaminophen (Tylenol) 650 mg PO Q6H PRN PRN PRN Reason: PAIN Albuterol Sulfate (Ventolin Aerosols) 2.5 mg INHALATION Q4H PRN PRN Reason: SOB AND OR WHEEZING Albuterol/Ipratropium (Duoneb) 3 ml INHALATION Q6HWA.RT [facility] Allopurinol (Zyloprim) 300 mg PO DAILY [facility] Aspirin (Aspirin, Baby) 81 mg PO DAILY@0800 [facility] Atorvastatin Calcium (Lipitor) 40 mg PO QHS [facility] Colchicine (Colchicine) 0.6 mg PO TID PRN PRN PRN Reason: GOUT Dextrose (D50w Syringe) 0 gm IV X1 PRN; Protocol PRN Reason: Hypoglycemia Diazepam (Valium) 5 mg PO DAILY PRN PRN Reason: ANXIETY Finasteride (Proscar) 5 mg PO DAILY [facility]ACH Glucagon () 1 mg IM .X1 PRN PRN Reason: Hypoglycemia Piperacillin Sod/Tazobactam (Sod 3.375 gm/ Sodium Chloride) 50 mls @ 12.5 mls/hr IV Q12 [facility] Sodium Bicarbonate 150 meq/ (Dextrose) 1,150 mls @ 150 mls/hr IV .Q7H40M [facility] Insulin Human Lispro (Humalog Kwikpen (Bkc)) 0 unit SC ACHS [facility]; Protocol Insulin Human Lispro (Humalog Kwikpen (Bkc)) 20 unit SC TIDCM [facility] Non-Formulary Medication (Insulin Degludec) 40 - 50 unit SC BID [facility] Ondansetron HCl (Zofran) 4 mg IV Q6H PRN PRN PRN Reason: NAUSEA Pantoprazole Sodium (Protonix) 40 mg PO DAILY [facility] Sodium Chloride () 5 - 15 ml IV UD PRN PRN Reason: SALINE FLUSH Tamsulosin HCl (Flomax) 0.4 mg PO DAILY@1730 [facility] - Past Medical History Past Medical History (Chronic Problems): Chronic Problems (Last Reviewed 04/21/18 @ 09:45 by Yaquelin Simpson) CKD (chronic kidney disease) stage 4, GFR 15-29 ml/min (Chronic) Nicotine abuse (Chronic) Nicotine dependence, cigarettes, in remission (Chronic) Stage 3 severe COPD by GOLD classification (Chronic) FEV1 37% predicted Heme + stool (Chronic) Anemia of chronic renal failure (Chronic) H/O pneumonectomy (Chronic) Right due to benign tumor Peripheral vascular disease (Chronic) COPD (chronic obstructive pulmonary disease) (Chronic) Radiculopathy affecting upper extremity (Chronic) Iron deficiency anemia (Chronic) Increased PTH level (Chronic) Low vitamin D level (Chronic) Paroxysmal atrial fibrillation (Chronic) Chronic renal failure, stage 4 (severe) (Chronic) Nocturnal hypoxia (Chronic) Noncompliance with CPAP treatment (Chronic) LADARIUS (obstructive sleep apnea) (Chronic) Gout (Chronic) History of tobacco abuse (Chronic) quit in April 2017 Hx of CABG (Chronic) x3 2004 Coronary artery disease (Chronic) has had 3 stents.....the last stent he thinks in 2008 Hypertension (Chronic) Diabetes mellitus type 2 in obese (Chronic) Non-STEMI (non-ST elevated myocardial infarction) (Chronic) - Past Surgical History Surgical History: angioplasty - stent x2 2003, - - rt lung thoracotomy, lobectomy 2009 for benign tumor - Social History Smoking Status: Current some day smoker Alcohol: None Drugs: None - Family History Maternal Family History: Family History (Last Reviewed 04/21/18 @ 09:45 by Yaquelin Simpson) Father Leukemia Mother COPD (chronic obstructive pulmonary disease) History Items: COPD Paternal Family History: Family History (Last Reviewed 04/21/18 @ 09:45 by Yaquelin Simpson) Father Leukemia Mother COPD (chronic obstructive pulmonary disease) History Items: Cancer - leukemia, Hypertension Review of Systems Constitutional: Reports: Weakness, Fatigue. Denies: Anorexia, Chills, Fever Eyes: Denies: Vision Change HEENT: Denies: Head Aches Cardiovascular: Reports: Light Headedness. Denies: Chest Pain, Edema, Syncope Respiratory: Denies: Cough, Shortness of Breath Gastrointestinal: Reports: Diarrhea - 8 loose stools watery a day past week, - - Blood toilet paper with wiping. Denies: Abdominal Pain, Hematemesis, Hematochezia, Nausea, Melena, Vomiting Genitourinary: Reports: - - Decreased urine output. Denies: Dysuria Musculoskeletal: Reports: - - No leg swelling. Denies: Back Pain Skin: Denies: Rash Neurological: Reports: Balance problems, - - Leg weakness. Denies: Tremor, Seizures Psychiatric: Denies: Anxiety, Depression Hematologic/ Lymphatic: Denies: Anemia, Hx of blood clot Patient Problems: Active and Suspected Problems (Last Reviewed 04/21/18 @ 09:45 by Yaquelin Simpson) Gastroenteritis (Acute) Severe sepsis (Acute) NICK (acute kidney injury) (Acute) - Physical Exam General: Alert, Oriented x3, Cooperative, No apparent distress HEENT: PERRLA, EOMI Oral: Dry Mucosa Neck: Supple Lungs: Clear to auscultation Cardiovascular: No rub noted, Tachycardic Abdomen: Bowel Sounds Present, Soft, Non Tender, Non-Distended Extremities: No edema Skin: No rashes Neurological: - - no asterixis Psych/Mental Status: Normal Affect, Appropriate, Alert and oriented to time, place, person, mood and affect Vital Signs Temp Pulse Resp BP Pulse Ox 96.8 F L 104 H 16 94/56 L 100 05/12/18 14:24 05/12/18 15:12 05/12/18 15:00 05/12/18 15:00 05/12/18 15:00 Oxygen Delivery Method Room Air Weight: 100.2 kg Body Mass Index (BMI) 29.9 Microbiology Past 72 Hours 05/12/18 12:40 C. difficile DNA Amplification - Final Stool 05/12/18 11:12 Stool Occult Blood (ИВАН) - Final Stool Occult Blood Positive Laboratory Tests Past 24 Hrs 05/12/18 05/12/18 05/12/18 10:32 10:32 10:32 WBC 21.0 H RBC 4.97 Hgb 14.1 Hct 44.5 MCV 89.5 MCH 28.4 MCHC 31.7 L RDW 15.8 H RDW Differential 51.6 H Plt Count 286 MPV 12.4 H Immature Gran % (Auto) 0.400 Neut % (Auto) 71.2 H Lymph % (Auto) 12.6 L [place] % (Auto) 3.9 Eos % (Auto) 11.8 H Baso % (Auto) 0.1 Absolute Neuts (auto) 15.0 H Absolute Lymphs (auto) 2.64 Total Counted Not Reportable Differential Comment SCANNED PT 14.3 INR 1.1 APTT 30.2 Sodium 135 L Potassium 7.4 H* Chloride 109 H Carbon Dioxide 9.0 L* Anion Gap 17 H BUN 88 H Creatinine 6.58 H Estim Creat Clear Calc 12.61 Est GFR (MDRD) Af Amer 11 L Est GFR (MDRD) Non-Af 9 L BUN/Creatinine Ratio 13.4 Glucose 279 H Lactic Acid Calcium 9.9 05/12/18 10:32 WBC RBC Hgb Hct MCV MCH MCHC RDW RDW Differential Plt Count MPV Immature Gran % (Auto) Neut % (Auto) Lymph % (Auto) [place] % (Auto) Eos % (Auto) Baso % (Auto) Absolute Neuts (auto) Absolute Lymphs (auto) Total Counted Differential Comment PT INR APTT Sodium Potassium Chloride Carbon Dioxide Anion Gap BUN Creatinine Estim Creat Clear Calc Est GFR (MDRD) Af Amer Est GFR (MDRD) Non-Af BUN/Creatinine Ratio Glucose Lactic Acid 2.9 H Calcium Clinical Impression(s) from Imaging Studies Abdomen/Pelvis CT 05/12/18 10:09 IMPRESSION: Status post subtotal colectomy. No acute abnormality is seen. Electronically Signed: Herbert Carroll, at 12:47 EST , Service support , Assessment/Plan All Active Problems (Last Reviewed 04/21/18 @ 09:45 by Yaquelin Simpson) Gastroenteritis (Acute) Severe sepsis (Acute) NICK (acute kidney injury) (Acute) Hyperkalemia (Acute) Acute renal failure superimposed on stage 4 chronic kidney disease (Acute) Metabolic acidosis (Acute) Acute exacerbation of chronic obstructive pulmonary disease (COPD) (Resolved) Acute respiratory failure with hypoxemia (Resolved) Benign neoplasm of right lung (Resolved) Influenza B (Resolved) Lower GI bleed (Resolved) Severe sepsis (Resolved) Streptococcal pneumonia (Resolved) Urinary retention due to benign prostatic hyperplasia (Resolved) 1. Acute on chronic disease stage IV underlying diabetic nephropathy. Acute event likely due to dehydration, GI loss, hypotension. Currently oliguric with fluid loss predominantly through GI. Continue with aggressive IV fluis resuscitation for tachycardia with hypotension. Oxygenation stable. Check urine sodium and creatinine to evaluate FENA for prerenal vs ATN. Hold on dialysis at this time. Cycle labs. Telemetry with narrow QRS complexes. Monitor strict urine output. CT abdomen on admit with normal appearing kidneys bilaterally. 2. Acute anion gap metabolic acidosis with hypotension likely due to severe dehydration, GI loss, renal failure. Bicarbonate level 9 on admit. Start bicarb drip 3. Severe hyperkalemia likely due to renal failure, increase potassium intake from drinking Camargo. Hold losartan for now. Give Kayexalate x1. Continue with bicarb infusion 4. watery diarrhea check stool for enteric pathogens 5. DM type II primary care management 6. Hypotension with lactic acidosis evaluate for sepsis. Leukocytosis without fever. Continue to hold blood pressure medications 7. CAD s/p CABG, stents/ Currently without symptoms 8. Lower extremity weakness likely due to hyperkalemia 9. Serial BMPs to monitor potassium and renal function. Strict I&O's. Discussed with hospitalist.
[2018-05-12 16:06] LABS: Mucous, Urine 0 SEEN /hpf (<or=2+); Red Blood Cells-Urine 0 SEEN /hpf (0-5)
[2018-05-12 16:08] LABS: Color, Urine Yellow (Yellow); Glucose, Dipstick 50 mg/dl (Normal); Ketone-Dipstick Negative (Negative); Leukocyte Esterase-Dipstick 25 /ul (Negative); Nitrite-Dipstick Negative (Negative); Occult Blood-Urine 10 /ul (Negative); Protein-Dipstick 100 mg/dl (Negative); Urine Bilirubin Dipstick Negative (Negative); Urine Clarity Clear (Clear); Urine Urobilinogen Normal (Normal)
[2018-05-12 16:14] LABS: Bacteria RARE /hpf (None Seen); Squamous Epithelial Cells - UA 0-5 SEEN /hpf (0-5); White Blood Cells 0-5 SEEN /hpf (0-5)
[2018-05-12 16:23] LABS: Urine Sodium 32 mmol/L (Not Establ.)
[2018-05-12] MEDS: Sodium Polystyrene Sulfonate 15 GM/60 ML UDC 30 GM PO (16:35)
[2018-05-12] MEDS: Tamsulosin HCl 0.4 MG Capsule PO (16:44)
[2018-05-12] MEDS: Insulin Lispro 100 UNIT/ML INSULN.PEN 20 UNIT SC (16:48)
[2018-05-12] MEDS: Insulin Lispro 100 UNIT/ML INSULN.PEN SC ×2 (16:49→21:08)
[2018-05-12 16:56] LABS: Bedside Glucose 170 mg/dL (70-110)
[2018-05-12 18:03] LABS: Anion Gap 8 (5-15); BUN 82 mg/dL (7-18); Calcium,Total 9.2 mg/dL (8.5-10.1); Chloride 115 mmol/L (98-107); EST Glomerular Filtration Rate 10 mL/min (>60); Est Glom Filt Rate - Afr Amer 12 mL/min (>60); Estimated Creatinine Clearance 13.17 ml/min; Glucose 187 mg/dL (74-106); Potassium 8.3 mmol/L (3.5-5.1); Sodium Level 134 mmol/L (136-145)
[2018-05-12 18:15] LABS: M R Staph aureus DNA By PCR Negative (Negative); Probe Check PASS; Specimen Processing Control PASS
--- NOTE | 2018-05-12 18:20 | NURSING ---
pan shover notified of referral for PICC; advised this RN it could be tomorrow before PICC is able to be placed- will let us know jose. Dr. Rincon to be notified.
--- NOTE | 2018-05-12 18:25 | NURSING ---
Adamaris from lab aide returned phone call, stated that she could be in by 1100. Dr. Rincon made aware.
[2018-05-12] MEDS: Sodium Bicarbonate 8.4% 50 ML Syringe 50 MEQ IV (18:48)
--- NOTE | 2018-05-12 19:20 | CPS ---
Pt has LADARIUS and wears PAP at home, offered hospital BiPAP, pt refused at this time.
[2018-05-12 19:53] LABS: Anion Gap 11 (5-15); BUN 84 mg/dL (7-18); BUN/Creat Ratio 12.9 RATIO (10-20); Calcium,Total 9.5 mg/dL (8.5-10.1); Chloride 114 mmol/L (98-107); Creatinine, Serum 6.51 mg/dL (0.70-1.30); EST Glomerular Filtration Rate 9 mL/min (>60); Est Glom Filt Rate - Afr Amer 11 mL/min (>60); Estimated Creatinine Clearance 12.75 ml/min; Glucose 187 mg/dL (74-106); Potassium 7.1 mmol/L (3.5-5.1); Sodium Level 137 mmol/L (136-145)
[2018-05-12] MEDS: Loperamide 2 MG Capsule 4 MG PO (21:06)
[2018-05-12] MEDS: Menthol/Lanolin/Calamine/Znox 113 GM Tube 1 APPLIC TOPICAL (21:07)
[2018-05-12] MEDS: Atorvastatin Calcium 40 MG Tablet PO (21:07)
[2018-05-12 21:16] LABS: Bedside Glucose 212 mg/dL (70-110)
[2018-05-12 23:53] LABS: Anion Gap 10 (5-15); BUN 84 mg/dL (7-18); Calcium,Total 8.7 mg/dL (8.5-10.1); Chloride 113 mmol/L (98-107); Creatinine, Serum 6.47 mg/dL (0.70-1.30); EST Glomerular Filtration Rate 9 mL/min (>60); Est Glom Filt Rate - Afr Amer 11 mL/min (>60); Estimated Creatinine Clearance 12.83 ml/min; Glucose 207 mg/dL (74-106); Potassium 5.5 mmol/L (3.5-5.1); Sodium Level 139 mmol/L (136-145)
[2018-05-12 23:56] LABS: Lactic Acid 1.5 mmol/L (0.4-2.0)
[2018-05-13] VITALS (34 sets, daily range): BP systolic 70–155; BP diastolic 44–80; PULSE 89–129; RESP 10–22; TEMP 36.8–38; O2SAT 94–99
[2018-05-13] MEDS: 0.9% Normal Saline 1,000 ML 999 ML IV (01:35)
[2018-05-13 03:15] LABS: Absolute Lymphocyte Count 2.38 X10^3/ul (0.83-4.51); Absolute Neutrophil Count 7.5 X10^3/uL (2.0-7.7); Basophil# 0.02 X10^3/uL; Basophil% 0.2 % (0-1); Hematocrit 30.4 % (40-54); Hemoglobin 9.8 g/dl (13.0-16.5); Lymphocyte # 2.38 X10^3/ul (4.0); Lymphocyte % 18.3 % (19-41); Mean Corp Hgb Conc 32.2 g/gl (32-36); Mean Corpuscular Hgb 28.7 pg (27.0-32.0); Mean Corpuscular Volume 88.9 fL (80-94); Mean Platelet Vol. 11.9 fl (6.2-12.0); Monocyte# 0.89 X10^3/uL; Monocyte% 6.8 % (0-10); Neutrophil # 7.46 X10^3/uL (2.7-7.7); Neutrophil % 57.2 % (47-70); Platelet Count 179 K/mm3 (150-450); RBC Distribution Width CV 15.4 % (11.6-14.6); Red Blood Count 3.42 M/mm3 (4.6-6.2)
[2018-05-13 03:16] LABS: Differential Indicated SCAN CRITERIA MET; Eosinophil# 2.21 X10^3/uL; POSITIVE COUNT NO; POSITIVE DIFFERENTIAL YES; POSITIVE MORPHOLOGY NO
[2018-05-13] MEDS: Albuterol 2.5 MG/3 ML VIAL.NEB. INHALATION (04:12)
[2018-05-13 05:40] LABS: Anion Gap 11 (5-15); BUN 80 mg/dL (7-18); BUN/Creat Ratio 13.8 RATIO (10-20); Calcium,Total 7.6 mg/dL (8.5-10.1); Chloride 110 mmol/L (98-107); Creatinine, Serum 5.78 mg/dL (0.70-1.30); EST Glomerular Filtration Rate 11 mL/min (>60); Est Glom Filt Rate - Afr Amer 13 mL/min (>60); Estimated Creatinine Clearance 14.36 ml/min; Glucose 365 mg/dL (74-106); Potassium 5.1 mmol/L (3.5-5.1); Sodium Level 142 mmol/L (136-145)
--- NOTE | 2018-05-13 06:30 | PCM.CON.CC ---
Reason for Consult Date of Consultation: 05/13/18 Reason for Consultation: Hypovolemic shock/acute kidney injury/hyperkalemia History of Present Illness: The patient is a 62-year-old male, with a history as outlined below, who presented to the emergency department on May 12 with complaints of watery diarrhea, generalized weakness and dizziness/lightheadedness of one weeks duration. The patient denied the presence of abdominal pain, nausea or vomiting. The patient has known CKD stage IV. He reports poor appetite and limited p.o. intake during the aforementioned time period. He denied any recent sick contacts. He does report that he gets his drinking water from a natural spring that is ground fed in the [facility]. The patient currently follows with me in the pulmonary medicine clinic due to a history of COPD. He has a [id number] smoking history, having quit completely in 2017. In addition, he has known obstructive sleep apnea, for which he is noncompliant with the use of noninvasive positive pressure ventilation. On presentation to the emergency department, the patient was noted to be afebrile, tachycardic and hypotensive. Initial laboratory evaluation revealed an elevated white blood cell count to 21,000. INR was within normal limits. Chemistry profile was notable for a potassium of 7.4, bicarbonate of 9.0 and creatinine of 6.58. Lactate was elevated to 2.9. MRSA screen was negative. CT abdomen/pelvis revealed prior subtotal colectomy without evidence of an acute intra-abdominal process. There was incidental note of a stable 1.5 cm spiculated nodule in the right lower lobe. The patient received supplemental IV fluid hydration along with antibiotics. His hyperkalemia was medically managed. He was subsequently transferred to the medical intensive care unit for ongoing management. Past Medical History Past Medical History (Chronic Problems): Chronic Problems (Last Reviewed 04/21/18 @ 09:45 by Yaquelin Simpson) CKD (chronic kidney disease) stage 4, GFR 15-29 ml/min (Chronic) Nicotine abuse (Chronic) Nicotine dependence, cigarettes, in remission (Chronic) Stage 3 severe COPD by GOLD classification (Chronic) FEV1 37% predicted Heme + stool (Chronic) Anemia of chronic renal failure (Chronic) H/O pneumonectomy (Chronic) Right due to benign tumor Peripheral vascular disease (Chronic) COPD (chronic obstructive pulmonary disease) (Chronic) Radiculopathy affecting upper extremity (Chronic) Iron deficiency anemia (Chronic) Increased PTH level (Chronic) Low vitamin D level (Chronic) Paroxysmal atrial fibrillation (Chronic) Chronic renal failure, stage 4 (severe) (Chronic) Nocturnal hypoxia (Chronic) Noncompliance with CPAP treatment (Chronic) LADARIUS (obstructive sleep apnea) (Chronic) Gout (Chronic) History of tobacco abuse (Chronic) quit in April 2017 Hx of CABG (Chronic) x3 2004 Coronary artery disease (Chronic) has had 3 stents.....the last stent he thinks in 2008 Hypertension (Chronic) Diabetes mellitus type 2 in obese (Chronic) Non-STEMI (non-ST elevated myocardial infarction) (Chronic) Medical History: Medical History (Last Reviewed 04/21/18 @ 09:45 by Yaquelin Simpson) Nicotine dependence, cigarettes, in remission (Chronic) F17.211 Heme + stool (Chronic) R19.5 Acute renal failure superimposed on stage 4 chronic kidney disease (Acute) N17.9, N18.4 Radiculopathy affecting upper extremity (Chronic) M54.10 Iron deficiency anemia (Chronic) D50.9 Increased PTH level (Chronic) E34.9 Metabolic acidosis (Acute) E87.2 Low vitamin D level (Chronic) E55.9 Paroxysmal atrial fibrillation (Chronic) I48.0 Chronic renal failure, stage 4 (severe) (Chronic) N18.4 Nocturnal hypoxia (Chronic) G47.34 Noncompliance with CPAP treatment (Chronic) Z91.14 LADARIUS (obstructive sleep apnea) (Chronic) G47.33 Gout (Chronic) M10.9 History of tobacco abuse (Chronic) Z87.891 quit in April 2017 Coronary artery disease (Chronic) I25.10 has had 3 stents.....the last stent he thinks in 2008 Hypertension (Chronic) I10 Diabetes mellitus type 2 in obese (Chronic) E11.69, E66.9 Non-STEMI (non-ST elevated myocardial infarction) (Chronic) I21.4 Colon cancer C18.9 Acute exacerbation of chronic obstructive pulmonary disease (COPD) (Resolved) J44.1 Acute respiratory failure with hypoxemia (Resolved) J96.01 Influenza B (Resolved) J10.1 Lower GI bleed (Resolved) K92.2 Severe sepsis (Resolved) A41.9, R65.20 Streptococcal pneumonia (Resolved) J15.4 Urinary retention due to benign prostatic hyperplasia (Resolved) N40.1, R33.8 NSAID long-term use (Inactive) Z79.1 Allergies No Known Allergies Allergy (Verified 04/21/18 09:45) Home Medications: Ambulatory Orders Medication Instructions Recorded Aspirin 81 mg PO DAILY 05/14/17 Insulin Aspart [Novolog Flexpen] 20 units SC TIDCM 05/14/17 Insulin Degludec [Tresiba 40 - 50 unit SC BID 05/14/17 Flextouch U-100] Nitroglycerin [Nitrostat] 0.4 mg SUBLINGUAL Q5M PRN 05/14/17 Oxycodone [Oxyir] 5 mg PO BID PRN PRN 05/14/17 Simvastatin 80 mg PO QHS 05/14/17 Oxygen, Home [Home Oxygen] 2 - 3 lpm NASAL UD #1 unit 05/18/17 Albuterol Aerosols [Ventolin 2.5 mg INHALATION Q4H PRN PRN 09/15/17 Aerosols] Allopurinol [Zyloprim] 300 mg PO DAILY 09/15/17 Cilostazol 50 mg PO BID 09/15/17 Colchicine 0.6 mg PO TID PRN 09/15/17 Ergocalciferol [Vitamin D] 50,000 unit PO Q7D 09/15/17 Finasteride [Proscar] 5 mg PO DAILY 09/15/17 Isosorbide Mononitrate [Imdur] 30 mg PO DAILY 09/15/17 Metoprolol(XL)Succ [Toprol Xl 50 mg PO DAILY 09/15/17 (Beta Vanesa)] Nebulizer [Aeroneb Go Nebulizer] 1 ea MC 4X/DAY 09/15/17 Pantoprazole Sodium [Protonix] 40 mg PO DAILY 09/15/17 Tamsulosin HCl [Flomax] 0.4 mg PO DAILY@1730 09/15/17 hydrALAZINE [Apresoline] 25 mg PO TID 09/15/17 losartan 25 mg tablet 50 mg PO DAILY 04/21/18 umeclidinium 62.5 mcg/actuation 1 inh INHALATION QDAY #30 ea 04/22/18 blister powder for inhalation Albuterol Inhaler [Ventolin Hfa 1 - 2 puff INHALATION Q4H PRN PRN 05/12/18 (SP)] Diazepam [Valium] 5 mg PO DAILY PRN 05/12/18 Sodium Bicarbonate 650 mg PO BID 05/12/18 Surgical History: Surgical History (Last Updated 04/21/18 @ 09:51 by Yaquelin Simpson) Hx of CABG (Chronic) Z95.1 x3 2003 H/O colectomy Z90.49 3/4 of colon, 12/2017, Dr. Alvarado with [facility] S/P removal of lung Z90.2 3/4 of right lung was removed by Dr. Todd in [facility] 11/2009 Surgical History: angioplasty - stent x2 2003, - - rt lung thoracotomy, lobectomy 2009 for benign tumor Lives: Spouse/ Significant Other Smoking Status: Current some day smoker Tobacco Use: Cigarettes Alcohol: None Drugs: None - *Family History Maternal Family History: Family History (Last Reviewed 04/21/18 @ 09:45 by Yaquelin Simpson) Father Leukemia Mother COPD (chronic obstructive pulmonary disease) History Items: COPD Paternal Family History: Family History (Last Reviewed 04/21/18 @ 09:45 by Yaquelin Simpson) Father Leukemia Mother COPD (chronic obstructive pulmonary disease) History Items: Cancer - leukemia, Hypertension Review of Systems Constitutional: Reports: Malaise, Weakness, Fatigue Eyes: Denies: Blurred vision, Double vision HEENT: Denies: Head Aches, Sinus Congestion, Sinus Drainage Cardiovascular: Reports: Light Headedness. Denies: Chest Pain, Palpitations Respiratory: Denies: Cough, Shortness of breath at rest, Sputum production Gastrointestinal: Reports: Diarrhea. Denies: Abdominal Pain, Nausea, Vomiting Genitourinary: Denies: Dysuria Musculoskeletal: Denies: Joint Pain, Joint Tenderness Skin: Denies: Rash, Wounds Neurological: Denies: Numbness, Tingling, Focal weakness Psychiatric: Denies: Anxiety, Depression, Homicidal Ideations, Suicidal Ideations Hematologic/ Lymphatic: Denies: Easy Bruising, Easy Bleeding Patient Problems: Active and Suspected Problems (Last Reviewed 04/21/18 @ 09:45 by Yaquelin Simpson) Gastroenteritis (Acute) Severe sepsis (Acute) NICK (acute kidney injury) (Acute) Objective: The patient's most recent lab work, culture data and imaging studies have all been personally reviewed. Stool for occult blood was noted to be positive. C. difficile was negative. Enteric bacteria panel was negative. - Physical Exam General: Alert, Cooperative, No apparent distress HEENT: Atraumatic, PERRLA, Normocephalic Oral: Dry Mucosa Neck: Supple, No Nodes, Trachea Midline Lungs: No rhonchi, No wheeze, No rales, Diminished Cardiovascular: Regular rate, Regular Rhythm, Normal S1, Normal S2, No murmurs Abdomen: Bowel Sounds Present, Soft, Non Tender, Obese Extremities: No clubbing, No cyanosis, Edema Skin: No breakdown Musculoskeletal: No Tenderness to Palpation of Joints or Extremities Lymphatic: No Cervical, Supraclavicular, or Inguinal Adenopathy Neurological: Cranial nerves II-XII grossly intact, Neuro grossly intact Psych/Mental Status: Normal Affect, Appropriate Vital Signs Temp Pulse Resp BP Pulse Ox 36.9 C 97 13 88/63 L 94 05/13/18 06:00 05/13/18 06:00 05/13/18 06:00 05/13/18 06:00 05/13/18 06:00 Oxygen Delivery Method Room Air Weight: 223 lb 1.725 oz Body Mass Index (BMI) 29.9 Intake and Output for Last 24 Hours 05/11/18 05/12/18 05/13/18 23:59 23:59 23:59 Intake Total 1835 / 1835 Output Total 160 / 160 1650 / 1650 Balance -160 / -160 185 / 185 Microbiology Past 72 Hours 05/12/18 15:50 Stool Lactoferrin - Final Stool 05/12/18 12:40 C. difficile DNA Amplification - Final Stool 05/12/18 11:12 Stool Occult Blood (ИВАН) - Final Stool Occult Blood Positive Laboratory Tests Past 24 Hrs 05/12/18 05/12/18 05/12/18 10:32 10:32 10:32 WBC 21.0 H RBC 4.97 Hgb 14.1 Hct 44.5 MCV 89.5 MCH 28.4 MCHC 31.7 L RDW 15.8 H RDW Differential 51.6 H Plt Count 286 MPV 12.4 H Immature Gran % (Auto) 0.400 Neut % (Auto) 71.2 H Lymph % (Auto) 12.6 L [place] % (Auto) 3.9 Eos % (Auto) 11.8 H Baso % (Auto) 0.1 Absolute Neuts (auto) 15.0 H Absolute Lymphs (auto) 2.64 Total Counted Not Reportable Differential Comment SCANNED Diff Path Review PT 14.3 INR 1.1 APTT 30.2 Sodium 135 L Potassium 7.4 H* Chloride 109 H Carbon Dioxide 9.0 L* Anion Gap 17 H BUN 88 H Creatinine 6.58 H Estim Creat Clear Calc 12.61 Est GFR (MDRD) Af Amer 11 L Est GFR (MDRD) Non-Af 9 L BUN/Creatinine Ratio 13.4 Glucose 279 H Lactic Acid Calcium 9.9 Urine Color Urine Clarity Urine pH Ur Specific Elton Urine Protein Urine Glucose (UA) Urine Ketones Urine Occult Blood Urine Nitrite Urine Bilirubin Urine Urobilinogen Ur Leukocyte Esterase Urine RBC Urine WBC Ur Squamous Epith Cells Urine Bacteria Urine Mucus Ur Random Sodium Urine Creatinine MRSA (PCR) 05/12/18 05/12/18 05/12/18 10:32 15:50 15:50 WBC RBC Hgb Hct MCV MCH MCHC RDW RDW Differential Plt Count MPV Immature Gran % (Auto) Neut % (Auto) Lymph % (Auto) Kingfisher % (Auto) Eos % (Auto) Baso % (Auto) Absolute Neuts (auto) Absolute Lymphs (auto) Total Counted Differential Comment Diff Path Review PT INR APTT Sodium Potassium Chloride Carbon Dioxide Anion Gap BUN Creatinine Estim Creat Clear Calc Est GFR (MDRD) Af Amer Est GFR (MDRD) Non-Af BUN/Creatinine Ratio Glucose Lactic Acid 2.9 H Calcium Urine Color Yellow Urine Clarity Clear Urine pH 5.0 Ur Specific Elton 1.020 Urine Protein 100 H Urine Glucose (UA) 50 H Urine Ketones Negative Urine Occult Blood 10 H Urine Nitrite Negative Urine Bilirubin Negative Urine Urobilinogen Normal Ur Leukocyte Esterase 25 H Urine RBC 0 SEEN Urine WBC 0-5 SEEN Ur Squamous Epith Cells 0-5 SEEN Urine Bacteria RARE Urine Mucus 0 SEEN Ur Random Sodium Urine Creatinine 214.00 MRSA (PCR) 05/12/18 05/12/18 05/12/18 15:50 16:20 17:05 WBC RBC Hgb Hct MCV MCH MCHC RDW RDW Differential Plt Count MPV Immature Gran % (Auto) Neut % (Auto) Lymph % (Auto) Kingfisher % (Auto) Eos % (Auto) Baso % (Auto) Absolute Neuts (auto) Absolute Lymphs (auto) Total Counted Differential Comment Diff Path Review PT INR APTT Sodium Potassium Chloride Carbon Dioxide Anion Gap BUN Creatinine Estim Creat Clear Calc Est GFR (MDRD) Af Amer Est GFR (MDRD) Non-Af BUN/Creatinine Ratio Glucose Lactic Acid Cancelled Calcium Urine Color Urine Clarity Urine pH Ur Specific Elton Urine Protein Urine Glucose (UA) Urine Ketones Urine Occult Blood Urine Nitrite Urine Bilirubin Urine Urobilinogen Ur Leukocyte Esterase Urine RBC Urine WBC Ur Squamous Epith Cells Urine Bacteria Urine Mucus Ur Random Sodium 32 Urine Creatinine MRSA (PCR) Negative 05/12/18 05/12/18 05/12/18 17:05 18:35 23:20 WBC RBC Hgb Hct MCV MCH MCHC RDW RDW Differential Plt Count MPV Immature Gran % (Auto) Neut % (Auto) Lymph % (Auto) Kingfisher % (Auto) Eos % (Auto) Baso % (Auto) Absolute Neuts (auto) Absolute Lymphs (auto) Total Counted Differential Comment Diff Path Review PT INR APTT Sodium 134 L 137 139 Potassium 8.3 H* 7.1 H* 5.5 H Chloride 115 H 114 H 113 H Carbon Dioxide 11.0 L 12.0 L 16.0 L Anion Gap 8 11 10 BUN 82 H 84 H 84 H Creatinine 6.30 H 6.51 H 6.47 H Estim Creat Clear Calc 13.17 12.75 12.83 Est GFR (MDRD) Af Amer 12 L 11 L 11 L Est GFR (MDRD) Non-Af 10 L 9 L 9 L BUN/Creatinine Ratio 13.0 12.9 13.0 Glucose 187 H 187 H 207 H Lactic Acid Calcium 9.2 9.5 8.7 Urine Color Urine Clarity Urine pH Ur Specific Elton Urine Protein Urine Glucose (UA) Urine Ketones Urine Occult Blood Urine Nitrite Urine Bilirubin Urine Urobilinogen Ur Leukocyte Esterase Urine RBC Urine WBC Ur Squamous Epith Cells Urine Bacteria Urine Mucus Ur Random Sodium Urine Creatinine MRSA (PCR) 05/12/18 05/13/18 05/13/18 23:20 02:55 02:55 WBC 13.0 H RBC 3.42 L Hgb 9.8 L Hct 30.4 L MCV 88.9 MCH 28.7 MCHC 32.2 RDW 15.4 H RDW Differential 49.0 H Plt Count 179 MPV 11.9 Immature Gran % (Auto) 0.500 Neut % (Auto) 57.2 Lymph % (Auto) 18.3 L [place] % (Auto) 6.8 Eos % (Auto) 17.0 H Baso % (Auto) 0.2 Absolute Neuts (auto) 7.5 Absolute Lymphs (auto) 2.38 Total Counted Not Reportable Differential Comment Diff Path Review May foll PT INR APTT Sodium 142 Potassium 5.1 Chloride 110 H Carbon Dioxide 21.0 Anion Gap 11 BUN 80 H Creatinine 5.78 H Estim Creat Clear Calc 14.36 Est GFR (MDRD) Af Amer 13 L Est GFR (MDRD) Non-Af 11 L BUN/Creatinine Ratio 13.8 Glucose 365 H Lactic Acid 1.5 Calcium 7.6 L Urine Color Urine Clarity Urine pH Ur Specific Elton Urine Protein Urine Glucose (UA) Urine Ketones Urine Occult Blood Urine Nitrite Urine Bilirubin Urine Urobilinogen Ur Leukocyte Esterase Urine RBC Urine WBC Ur Squamous Epith Cells Urine Bacteria Urine Mucus Ur Random Sodium Urine Creatinine MRSA (PCR) POC Glucose 05/12/18 05/12/18 21:05 16:48 POC Glucose 212 H 170 H Clinical Impression(s) from Imaging Studies Abdomen/Pelvis CT 05/12/18 10:09 IMPRESSION: Status post subtotal colectomy. No acute abnormality is seen. Electronically Signed: Herbert Carroll, at 12:47 EST , Service support , Assessment/Plan Active and Suspected Problems (Last Reviewed 04/21/18 @ 09:45 by Yaquelin Simpson) Gastroenteritis (Acute) Severe sepsis (Acute) NICK (acute kidney injury) (Acute) RECOMMENDATIONS: 1. Continue IV fluids per nephrology recommendations. 2. Mobilize patient today. Check orthostatic vital signs. 3. I do not necessarily see an indication for Zosyn. Therefore, antibiotics can be discontinued from my perspective. 4. Continue scheduled bronchodilators. 5. Check Giardia antigen 6. Continue to monitor in ICU setting yet today, given tenuous blood pressure parameters. IMPRESSIONS: 1. Severe sepsis with profound hypovolemia, likely secondary to underlying viral gastroenteritis Continue current supportive measures with supplemental IV fluid hydration. The patient has never required vasopressor support. Stool output has significantly decreased. Initial infectious workup has been unrevealing. Antibiotics, from my perspective, can be discontinued. Recommend checking Giardia antigen as well. We will attempt to mobilize patient today and check orthostatic vital signs. 2. Acute on chronic kidney disease/hyperkalemia/metabolic acidosis Likely prerenal in etiology and related to #1. Creatinine is improving, as his urine output, on his continuous bicarbonate infusion. Recommend continuing IV fluid hydration per nephrology recommendations. Potassium level is now within normal limits. 3. Baseline COPD without exacerbation Recommend continuing scheduled bronchodilators as ordered. 4. Known history of obstructive sleep apnea While the patient has known obstructive sleep apnea, he has been and continues to be noncompliant with the use of nocturnal Pap therapy. 5. Hypertension/hyperlipidemia/gout/pulmonary nodule/tobacco dependency in remission Complicates care, management, recovery and prognosis. Continue to hold home antihypertensive medications. This note was generated with [employer] dictation software. It may contain incorrect words, spelling, and punctuation that were not noted in checking the note before signing. Code Visit Inpatient E&M: 30665 Init Hosp L3
--- NOTE | 2018-05-13 07:21 | PN_ITS ---
Patient Problems: Active and Suspected Problems (Last Reviewed 04/21/18 @ 09:45 by Yaquelin Simpson) Gastroenteritis (Acute) Severe sepsis (Acute) NICK (acute kidney injury) (Acute) Subjective: Patient is a 62-year-old gentleman with past medical history significant chronic kidney disease stage IV, admitted with bloody watery diarrhea weeks duration. Patient was found to have acute kidney injury with hyperkalemia on admission admitted to the intensive care unit for subsequent management Objective: GENERAL: cooperative HEENT: Atraumatic; moist oral mucosa EYES; Anicteric, Normal Conjunctiva NECK; supple, normal thyroid, no distended JVD. RESPIRATORY: Diminished to auscultation bilaterally, CARDIOVASCULAR: Regular S1 S2, no audible murmurs GI: soft, non-tender, normoactive bowel sounds, : No Renal angle tenderness; EXTREMITIES: No edema, no clubbing, no cyanosis. MUSCULOSKELETAL: No Joint Tenderness; NEURO: Awake; no lateralizing signs. SKIN: Is dry with excoriations on lower extremities PSYCH; Normal affect Vitals/I&O's: Vital Signs Temp Pulse Resp BP Pulse Ox 98.4 F 97 13 88/63 L 94 05/13/18 06:00 05/13/18 06:00 05/13/18 06:00 05/13/18 06:00 05/13/18 06:00 Oxygen Delivery Method Room Air Weight: 101.2 kg Body Mass Index (BMI) 29.9 Intake and Output for Last 24 Hours 05/11/18 05/12/18 05/13/18 23:59 23:59 23:59 Intake Total 4528 / 4528 Output Total 160 / 160 1900 / 1900 Balance -160 / -160 2628 / 2628 Microbiology Past 72 Hours 05/12/18 15:50 Stool Stool Lactoferrin - Final 05/12/18 12:40 Stool C. difficile DNA Amplification - Final 05/12/18 11:12 Stool Stool Occult Blood (ИВАН) - Final Occult Blood Positive Laboratory Results 05/12/18 10:32: WBC 21.0 H, RBC 4.97, Hgb 14.1, Hct 44.5, MCV 89.5, MCH 28.4, MCHC 31.7 L, RDW 15.8 H, RDW Differential 51.6 H, Plt Count 286, MPV 12.4 H, Immature Gran % (Auto) 0.400, Neut % (Auto) 71.2 H, Lymph % (Auto) 12.6 L, [place] % (Auto) 3.9, Eos % (Auto) 11.8 H, Baso % (Auto) 0.1, Absolute Neuts (auto) 15.0 H, Absolute Lymphs (auto) 2.64, Total Counted Not Reportable, Differential Comment SCANNED 05/12/18 10:32: PT 14.3, INR 1.1, APTT 30.2 05/12/18 10:32: Sodium 135 L, Potassium 7.4 H*, Chloride 109 H, Carbon Dioxide 9.0 L*, Anion Gap 17 H, BUN 88 H, Creatinine 6.58 H, Estim Creat Clear Calc 12.61, Est GFR (MDRD) Af Amer 11 L, Est GFR (MDRD) Non-Af 9 L, BUN/Creatinine Ratio 13.4, Glucose 279 H, Calcium 9.9 05/12/18 10:32: Lactic Acid 2.9 H 05/12/18 15:50: Urine Color Yellow, Urine Clarity Clear, Urine pH 5.0, Ur Specific [place] 1.020, Urine Protein 100 H, Urine Glucose (UA) 50 H, Urine Ketones Negative, Urine Occult Blood 10 H, Urine Nitrite Negative, Urine Bilirubin Negative, Urine Urobilinogen Normal, Ur Leukocyte Esterase 25 H, Urine RBC 0 SEEN, Urine WBC 0-5 SEEN, Ur Squamous Epith Cells 0-5 SEEN, Urine Bacteria RARE, Urine Mucus 0 SEEN 05/12/18 15:50: Urine Creatinine 214.00 05/12/18 15:50: Ur Random Sodium 32 05/12/18 16:20: MRSA (PCR) Negative 05/12/18 16:48: POC Glucose 170 H 05/12/18 17:05: Lactic Acid Cancelled 05/12/18 17:05: Sodium 134 L, Potassium 8.3 H*, Chloride 115 H, Carbon Dioxide 11.0 L, Anion Gap 8, BUN 82 H, Creatinine 6.30 H, Estim Creat Clear Calc 13.17, Est GFR (MDRD) Af Amer 12 L, Est GFR (MDRD) Non-Af 10 L, BUN/Creatinine Ratio 13.0, Glucose 187 H, Calcium 9.2 05/12/18 18:35: Sodium 137, Potassium 7.1 H*, Chloride 114 H, Carbon Dioxide 12.0 L, Anion Gap 11, BUN 84 H, Creatinine 6.51 H, Estim Creat Clear Calc 12.75, Est GFR (MDRD) Af Amer 11 L, Est GFR (MDRD) Non-Af 9 L, BUN/Creatinine Ratio 12.9, Glucose 187 H, Calcium 9.5 05/12/18 21:05: POC Glucose 212 H 05/12/18 23:20: Sodium 139, Potassium 5.5 H, Chloride 113 H, Carbon Dioxide 16.0 L, Anion Gap 10, BUN 84 H, Creatinine 6.47 H, Estim Creat Clear Calc 12.83, Est GFR (MDRD) Af Amer 11 L, Est GFR (MDRD) Non-Af 9 L, BUN/Creatinine Ratio 13.0, Glucose 207 H, Calcium 8.7 05/12/18 23:20: Lactic Acid 1.5 05/13/18 02:55: WBC 13.0 H, RBC 3.42 L, Hgb 9.8 L, Hct 30.4 L, MCV 88.9, MCH 28.7, MCHC 32.2, RDW 15.4 H, RDW Differential 49.0 H, Plt Count 179, MPV 11.9, Immature Gran % (Auto) 0.500, Neut % (Auto) 57.2, Lymph % (Auto) 18.3 L, [place] % (Auto) 6.8, Eos % (Auto) 17.0 H, Baso % (Auto) 0.2, Absolute Neuts (auto) 7.5, Absolute Lymphs (auto) 2.38, Total Counted Not Reportable, Diff Path Review July05/13/18 02:55: Sodium 142, Potassium 5.1, Chloride 110 H, Carbon Dioxide 21.0, Anion Gap 11, BUN 80 H, Creatinine 5.78 H, Estim Creat Clear Calc 14.36, Est GFR (MDRD) Af Amer 13 L, Est GFR (MDRD) Non-Af 11 L, BUN/Creatinine Ratio 13.8, Glucose 365 H, Calcium 7.6 L 05/13/18 07:15: Sodium Pending, Potassium Pending, Chloride Pending, Carbon Dioxide Pending, Anion Gap Pending, BUN Pending, Creatinine Pending, Est GFR (MDRD) Af Amer Pending, Est GFR (MDRD) Non-Af Pending, BUN/Creatinine Ratio Pending, Glucose Pending, Calcium Pending Current Medications Acetaminophen (Tylenol) 650 mg PO Q6H PRN PRN PRN Reason: PAIN Albuterol Sulfate (Ventolin Aerosols) 2.5 mg INHALATION Q4H PRN PRN Reason: SOB AND OR WHEEZING Last Admin: 05/13/18 04:12 Dose: 2.5 mg Albuterol/Ipratropium (Duoneb) 3 ml INHALATION Q6HWA.RT [facility] Last Admin: 05/12/18 19:20 Dose: Not Given Allopurinol (Zyloprim) 300 mg PO DAILY [facility] Aspirin (Aspirin, Baby) 81 mg PO DAILY@0800 [facility] Atorvastatin Calcium (Lipitor) 40 mg PO QHS [facility] Last Admin: 05/12/18 21:07 Dose: 40 mg Calamine/Phenol (Calmoseptine Ointment) 1 applic TOPICAL BID [facility]; Protocol Last Admin: 05/12/18 21:07 Dose: 1 applicatio Colchicine (Colchicine) 0.6 mg PO TID PRN PRN PRN Reason: GOUT Dextrose (D50w Syringe) 0 gm IV X1 PRN; Protocol PRN Reason: Hypoglycemia Finasteride (Proscar) 5 mg PO DAILY [facility] Glucagon () 1 mg IM .X1 PRN PRN Reason: Hypoglycemia Piperacillin Sod/Tazobactam (Sod 3.375 gm/ Sodium Chloride) 50 mls @ 12.5 mls/hr IV Q12 [facility] Last Admin: 05/13/18 01:11 Dose: 12.5 mls/hr Sodium Bicarbonate 150 meq/ (Dextrose) 1,150 mls @ 150 mls/hr IV .Q7H40M [facility] Last Admin: 05/12/18 23:30 Dose: 150 mls/hr Insulin Human Lispro (Humalog Kwikpen (Bkc)) 0 unit SC ACHS [facility]; Protocol Last Admin: 05/12/18 21:08 Dose: 2 unit Insulin Human Lispro (Humalog Kwikpen (Bkc)) 20 unit SC TIDCM [facility] Last Admin: 05/12/18 16:48 Dose: 20 units Loperamide HCl (Imodium) 2 mg PO Q6H PRN PRN PRN Reason: Diarrhea Non-Formulary Medication (Insulin Degludec) 40 - 50 unit SC BID [facility] Ondansetron HCl (Zofran) 4 mg IV Q6H PRN PRN PRN Reason: NAUSEA Pantoprazole Sodium (Protonix) 40 mg PO DAILY [facility] Sodium Chloride () 5 - 15 ml IV UD PRN PRN Reason: SALINE FLUSH Tamsulosin HCl (Flomax) 0.4 mg PO DAILY@1730 [facility] Last Admin: 05/12/18 16:44 Dose: 0.4 mg Medical Necessity - Tobacco Use Smoking Status: Current some day smoker Tobacco Use: Cigarettes Assessment/Plan All Active Problems (Last Reviewed 04/21/18 @ 09:45 by Yaquelin Simpson) Gastroenteritis (Acute) Severe sepsis (Acute) NICK (acute kidney injury) (Acute) Hyperkalemia (Acute) Acute renal failure superimposed on stage 4 chronic kidney disease (Acute) Metabolic acidosis (Acute) Acute exacerbation of chronic obstructive pulmonary disease (COPD) (Resolved) Acute respiratory failure with hypoxemia (Resolved) Benign neoplasm of right lung (Resolved) Influenza B (Resolved) Lower GI bleed (Resolved) Severe sepsis (Resolved) Streptococcal pneumonia (Resolved) Urinary retention due to benign prostatic hyperplasia (Resolved) Patient is a 62-year-old gentleman with past medical history significant chronic kidney disease stage IV, admitted with bloody watery diarrhea weeks duration. Patient was found to have acute kidney injury with hyperkalemia on admission admitted to the intensive care unit for subsequent management 1. Acute kidney injury from severe dehydration from patient watery diarrhea. Admitted to the intensive care unit where patient was fluid resuscitated with consultation placed to patient's air pollution engineer Dr. Yuliana Magana 2. Hyperkalemia secondary to above patient did receive Kayexalate was on losartan held on admission 3. Chronic kidney disease stage IV patient presented with worsening kidney function as a result of acute kidney injury 4. History of colon cancer status post subtotal colectomy patient remains in remission 5. Diabetes mellitus type 2 did continue with patient's patient home regimen in addition to Accu-Cheks before meals and at bedtime with sliding scale coverage 6. CAD with previous CABG and subsequent stent placement 7. 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 COPD currently not in exacerbation 9. Obstructive sleep apnea patient has been noncompliant with CPAP 10. Paroxysmal atrial fibrillation 11. Dyslipidemia 12. Gout 13. BPH 14. DVT prophylaxis avoided the use of chemoprophylaxis in view of patient presenting with bloody diarrhea Active Medications Acetaminophen (Tylenol) 650 mg PO Q6H PRN PRN PRN Reason: PAIN Albuterol Sulfate (Ventolin Aerosols) 2.5 mg INHALATION Q4H PRN PRN Reason: SOB AND OR WHEEZING Last Admin: 05/13/18 04:12 Dose: 2.5 mg Albuterol/Ipratropium (Duoneb) 3 ml INHALATION Q6HWA.RT [facility] Last Admin: 05/12/18 19:20 Dose: Not Given Allopurinol (Zyloprim) 300 mg PO DAILY [facility] Aspirin (Aspirin, Baby) 81 mg PO DAILY@0800 [facility] Atorvastatin Calcium (Lipitor) 40 mg PO QHS [facility] Last Admin: 05/12/18 21:07 Dose: 40 mg Calamine/Phenol (Calmoseptine Ointment) 1 applic TOPICAL BID [facility]; Protocol Last Admin: 05/12/18 21:07 Dose: 1 applicatio Colchicine (Colchicine) 0.6 mg PO TID PRN PRN PRN Reason: GOUT Dextrose (D50w Syringe) 0 gm IV X1 PRN; Protocol PRN Reason: Hypoglycemia Finasteride (Proscar) 5 mg PO DAILY [facility] Glucagon () 1 mg IM .X1 PRN PRN Reason: Hypoglycemia Piperacillin Sod/Tazobactam (Sod 3.375 gm/ Sodium Chloride) 50 mls @ 12.5 mls/hr IV Q12 [facility] Last Admin: 05/13/18 01:11 Dose: 12.5 mls/hr Sodium Bicarbonate 150 meq/ (Dextrose) 1,150 mls @ 150 mls/hr IV .Q7H40M [facility] Last Admin: 05/12/18 23:30 Dose: 150 mls/hr Insulin Human Lispro (Humalog Kwikpen (Bkc)) 0 unit SC ACHS [facility]; Protocol Last Admin: 05/12/18 21:08 Dose: 2 unit Insulin Human Lispro (Humalog Kwikpen (Bkc)) 20 unit SC TIDCM [facility] Last Admin: 05/12/18 16:48 Dose: 20 units Loperamide HCl (Imodium) 2 mg PO Q6H PRN PRN PRN Reason: Diarrhea Non-Formulary Medication (Insulin Degludec) 40 - 50 unit SC BID [facility] Ondansetron HCl (Zofran) 4 mg IV Q6H PRN PRN PRN Reason: NAUSEA Pantoprazole Sodium (Protonix) 40 mg PO DAILY [facility] Sodium Chloride () 5 - 15 ml IV UD PRN PRN Reason: SALINE FLUSH Tamsulosin HCl (Flomax) 0.4 mg PO DAILY@1730 [facility] Last Admin: 05/12/18 16:44 Dose: 0.4 mg Clinical Impression(s) from Imaging Studies Abdomen/Pelvis CT 05/12/18 10:09 IMPRESSION: Status post subtotal colectomy. No acute abnormality is seen. Electronically Signed: Herbert Carroll, at 12:47 EST , Service support , Code Visit Inpatient E&M: [id number] Subs Hosp L3
[2018-05-13 07:36] LABS: Anion Gap 9 (5-15); BUN 76 mg/dL (7-18); BUN/Creat Ratio 13.4 RATIO (10-20); Calcium,Total 7.3 mg/dL (8.5-10.1); Chloride 107 mmol/L (98-107); Creatinine, Serum 5.66 mg/dL (0.70-1.30); EST Glomerular Filtration Rate 11 mL/min (>60); Est Glom Filt Rate - Afr Amer 13 mL/min (>60); Estimated Creatinine Clearance 14.66 ml/min; Glucose 382 mg/dL (74-106); Potassium 4.6 mmol/L (3.5-5.1); Sodium Level 138 mmol/L (136-145)
--- NOTE | 2018-05-13 08:17 | PCM.PN.REN ---
Patient Problems: Active and Suspected Problems (Last Reviewed 04/21/18 @ 09:45 by Yaquelin Simpson) Gastroenteritis (Acute) Severe sepsis (Acute) NICK (acute kidney injury) (Acute) Subjective: diarrhea improved with imodium. Stool cx, cdiff neg so far. Denies abdominal pain, nausea, vomiting. Potassium level improved. On bicarb drip for acidosis. Creatinine slowly improving with iv fluids. - Physical Exam General: Alert, Oriented x3, Cooperative, No apparent distress Oral: Dry Mucosa Lungs: Clear to auscultation Cardiovascular: Regular rate, Tachycardic Abdomen: Bowel Sounds Present, Soft, Non Tender, Non-Distended Extremities: No edema Skin: No rashes Neurological: - - no tremor Psych/Mental Status: Normal Affect, Appropriate, Alert and oriented to time, place, person, mood and affect Vital Signs Temp Pulse Resp BP Pulse Ox 98.4 F 97 13 88/63 L 94 05/13/18 06:00 05/13/18 06:00 05/13/18 06:00 05/13/18 06:00 05/13/18 06:00 Oxygen Delivery Method Room Air Weight: 101.2 kg Body Mass Index (BMI) 29.9 Intake and Output for Last 24 Hours 05/11/18 05/12/18 05/13/18 23:59 23:59 23:59 Intake Total 4528 / 4528 Output Total 160 / 160 1900 / 1900 Balance -160 / -160 2628 / 2628 Microbiology Past 72 Hours 05/12/18 12:40 Enteric Bacteriology - Final Stool 05/12/18 15:50 Stool Lactoferrin - Final Stool 05/12/18 12:40 C. difficile DNA Amplification - Final Stool 05/12/18 11:12 Stool Occult Blood (ИВАН) - Final Stool Occult Blood Positive Laboratory Tests Past 24 Hrs 05/12/18 05/12/18 05/12/18 10:32 10:32 10:32 WBC 21.0 H RBC 4.97 Hgb 14.1 Hct 44.5 MCV 89.5 MCH 28.4 MCHC 31.7 L RDW 15.8 H RDW Differential 51.6 H Plt Count 286 MPV 12.4 H Immature Gran % (Auto) 0.400 Neut % (Auto) 71.2 H Lymph % (Auto) 12.6 L [place] % (Auto) 3.9 Eos % (Auto) 11.8 H Baso % (Auto) 0.1 Absolute Neuts (auto) 15.0 H Absolute Lymphs (auto) 2.64 Total Counted Not Reportable Differential Comment SCANNED Diff Path Review PT 14.3 INR 1.1 APTT 30.2 Sodium 135 L Potassium 7.4 H* Chloride 109 H Carbon Dioxide 9.0 L* Anion Gap 17 H BUN 88 H Creatinine 6.58 H Estim Creat Clear Calc 12.61 Est GFR (MDRD) Af Amer 11 L Est GFR (MDRD) Non-Af 9 L BUN/Creatinine Ratio 13.4 Glucose 279 H Lactic Acid Calcium 9.9 Urine Color Urine Clarity Urine pH Ur Specific [place] Urine Protein Urine Glucose (UA) Urine Ketones Urine Occult Blood Urine Nitrite Urine Bilirubin Urine Urobilinogen Ur Leukocyte Esterase Urine RBC Urine WBC Ur Squamous Epith Cells Urine Bacteria Urine Mucus Ur Random Sodium Urine Creatinine MRSA (PCR) 05/12/18 05/12/18 05/12/18 10:32 15:50 15:50 WBC RBC Hgb Hct MCV MCH MCHC RDW RDW Differential Plt Count MPV Immature Gran % (Auto) Neut % (Auto) Lymph % (Auto) [place] % (Auto) Eos % (Auto) Baso % (Auto) Absolute Neuts (auto) Absolute Lymphs (auto) Total Counted Differential Comment Diff Path Review PT INR APTT Sodium Potassium Chloride Carbon Dioxide Anion Gap BUN Creatinine Estim Creat Clear Calc Est GFR (MDRD) Af Amer Est GFR (MDRD) Non-Af BUN/Creatinine Ratio Glucose Lactic Acid 2.9 H Calcium Urine Color Yellow Urine Clarity Clear Urine pH 5.0 Ur Specific [place] 1.020 Urine Protein 100 H Urine Glucose (UA) 50 H Urine Ketones Negative Urine Occult Blood 10 H Urine Nitrite Negative Urine Bilirubin Negative Urine Urobilinogen Normal Ur Leukocyte Esterase 25 H Urine RBC 0 SEEN Urine WBC 0-5 SEEN Ur Squamous Epith Cells 0-5 SEEN Urine Bacteria RARE Urine Mucus 0 SEEN Ur Random Sodium Urine Creatinine 214.00 MRSA (PCR) 05/12/18 05/12/18 05/12/18 15:50 16:20 17:05 WBC RBC Hgb Hct MCV MCH MCHC RDW RDW Differential Plt Count MPV Immature Gran % (Auto) Neut % (Auto) Lymph % (Auto) [place] % (Auto) Eos % (Auto) Baso % (Auto) Absolute Neuts (auto) Absolute Lymphs (auto) Total Counted Differential Comment Diff Path Review PT INR APTT Sodium Potassium Chloride Carbon Dioxide Anion Gap BUN Creatinine Estim Creat Clear Calc Est GFR (MDRD) Af Amer Est GFR (MDRD) Non-Af BUN/Creatinine Ratio Glucose Lactic Acid Cancelled Calcium Urine Color Urine Clarity Urine pH Ur Specific [place] Urine Protein Urine Glucose (UA) Urine Ketones Urine Occult Blood Urine Nitrite Urine Bilirubin Urine Urobilinogen Ur Leukocyte Esterase Urine RBC Urine WBC Ur Squamous Epith Cells Urine Bacteria Urine Mucus Ur Random Sodium 32 Urine Creatinine MRSA (PCR) Negative 05/12/18 05/12/18 05/12/18 17:05 18:35 23:20 WBC RBC Hgb Hct MCV MCH MCHC RDW RDW Differential Plt Count MPV Immature Gran % (Auto) Neut % (Auto) Lymph % (Auto) [place] % (Auto) Eos % (Auto) Baso % (Auto) Absolute Neuts (auto) Absolute Lymphs (auto) Total Counted Differential Comment Diff Path Review PT INR APTT Sodium 134 L 137 139 Potassium 8.3 H* 7.1 H* 5.5 H Chloride 115 H 114 H 113 H Carbon Dioxide 11.0 L 12.0 L 16.0 L Anion Gap 8 11 10 BUN 82 H 84 H 84 H Creatinine 6.30 H 6.51 H 6.47 H Estim Creat Clear Calc 13.17 12.75 12.83 Est GFR (MDRD) Af Amer 12 L 11 L 11 L Est GFR (MDRD) Non-Af 10 L 9 L 9 L BUN/Creatinine Ratio 13.0 12.9 13.0 Glucose 187 H 187 H 207 H Lactic Acid Calcium 9.2 9.5 8.7 Urine Color Urine Clarity Urine pH Ur Specific [place] Urine Protein Urine Glucose (UA) Urine Ketones Urine Occult Blood Urine Nitrite Urine Bilirubin Urine Urobilinogen Ur Leukocyte Esterase Urine RBC Urine WBC Ur Squamous Epith Cells Urine Bacteria Urine Mucus Ur Random Sodium Urine Creatinine MRSA (PCR) 05/12/18 05/13/18 05/13/18 23:20 02:55 02:55 WBC 13.0 H RBC 3.42 L Hgb 9.8 L Hct 30.4 L MCV 88.9 MCH 28.7 MCHC 32.2 RDW 15.4 H RDW Differential 49.0 H Plt Count 179 MPV 11.9 Immature Gran % (Auto) 0.500 Neut % (Auto) 57.2 Lymph % (Auto) 18.3 L [place] % (Auto) 6.8 Eos % (Auto) 17.0 H Baso % (Auto) 0.2 Absolute Neuts (auto) 7.5 Absolute Lymphs (auto) 2.38 Total Counted Not Reportable Differential Comment Diff Path Review May foll PT INR APTT Sodium 142 Potassium 5.1 Chloride 110 H Carbon Dioxide 21.0 Anion Gap 11 BUN 80 H Creatinine 5.78 H Estim Creat Clear Calc 14.36 Est GFR (MDRD) Af Amer 13 L Est GFR (MDRD) Non-Af 11 L BUN/Creatinine Ratio 13.8 Glucose 365 H Lactic Acid 1.5 Calcium 7.6 L Urine Color Urine Clarity Urine pH Ur Specific [place] Urine Protein Urine Glucose (UA) Urine Ketones Urine Occult Blood Urine Nitrite Urine Bilirubin Urine Urobilinogen Ur Leukocyte Esterase Urine RBC Urine WBC Ur Squamous Epith Cells Urine Bacteria Urine Mucus Ur Random Sodium Urine Creatinine MRSA (PCR) 05/13/18 07:15 WBC RBC Hgb Hct MCV MCH MCHC RDW RDW Differential Plt Count MPV Immature Gran % (Auto) Neut % (Auto) Lymph % (Auto) [place] % (Auto) Eos % (Auto) Baso % (Auto) Absolute Neuts (auto) Absolute Lymphs (auto) Total Counted Differential Comment Diff Path Review PT INR APTT Sodium 138 Potassium 4.6 Chloride 107 Carbon Dioxide 22.0 Anion Gap 9 BUN 76 H Creatinine 5.66 H Estim Creat Clear Calc 14.66 Est GFR (MDRD) Af Amer 13 L Est GFR (MDRD) Non-Af 11 L BUN/Creatinine Ratio 13.4 Glucose 382 H Lactic Acid Calcium 7.3 L Urine Color Urine Clarity Urine pH Ur Specific [place] Urine Protein Urine Glucose (UA) Urine Ketones Urine Occult Blood Urine Nitrite Urine Bilirubin Urine Urobilinogen Ur Leukocyte Esterase Urine RBC Urine WBC Ur Squamous Epith Cells Urine Bacteria Urine Mucus Ur Random Sodium Urine Creatinine MRSA (PCR) POC Glucose 05/12/18 05/12/18 21:05 16:48 POC Glucose 212 H 170 H Medical Necessity - Tobacco Use Smoking Status: Current some day smoker Tobacco Use: Cigarettes Assessment/Plan All Active Problems (Last Reviewed 04/21/18 @ 09:45 by Yaquelin Simpson) Gastroenteritis (Acute) Severe sepsis (Acute) NICK (acute kidney injury) (Acute) Hyperkalemia (Acute) Acute renal failure superimposed on stage 4 chronic kidney disease (Acute) Metabolic acidosis (Acute) Acute exacerbation of chronic obstructive pulmonary disease (COPD) (Resolved) Acute respiratory failure with hypoxemia (Resolved) Benign neoplasm of right lung (Resolved) Influenza B (Resolved) Lower GI bleed (Resolved) Severe sepsis (Resolved) Streptococcal pneumonia (Resolved) Urinary retention due to benign prostatic hyperplasia (Resolved) 1. Acute on chronic disease stage IV underlying diabetic nephropathy. Acute event due to dehydration, diarrhea, hypotension. Renal fxn improving 2. Acute anion gap metabolic acidosis with hypotension likely due to severe dehydration, GI loss, renal failure. Bicarbonate improved on bicarb drip 3. Severe hyperkalemia resolved. Continue to hold losartan for now. 4. watery diarrhea check stool for enteric pathogens 5. DM type II primary care management 6. Hypotension with lactic acidosis stable with fluids
[2018-05-13] MEDS: Insulin Lispro 100 UNIT/ML INSULN.PEN SC ×2 (08:27→11:10)
[2018-05-13] MEDS: Aspirin 81 MG TAB.CHEW PO (08:30)
[2018-05-13] MEDS: Insulin Lispro 100 UNIT/ML INSULN.PEN 20 UNIT SC ×3 (08:30→16:52)
[2018-05-13] MEDS: Allopurinol 300 MG Tablet PO (08:31)
[2018-05-13] MEDS: Pantoprazole Sodium 40 MG Tablet PO (08:31)
[2018-05-13] MEDS: Finasteride 5 MG Tablet PO (08:31)
[2018-05-13] MEDS: Menthol/Lanolin/Calamine/Znox 113 GM Tube 1 APPLIC TOPICAL ×2 (08:33→21:23)
[2018-05-13 08:40] LABS: Bedside Glucose 209 mg/dL (70-110)
--- NOTE | 2018-05-13 10:11 | CASEMGMT ---
DEVEN SAAVEDRA Note: Call placed to Ciarra @ [employer] to provide update. No answer. Left message. Awaiting return call. Shirley PATHAK RN CM
[2018-05-13] MEDS: 0.9% Normal Saline 1,000 ML 150 ML IV (11:12)
[2018-05-13 11:21] LABS: Bedside Glucose 321 mg/dL (70-110)
--- NOTE | 2018-05-13 12:13 | CASEMGMT ---
As per case management, pt has a disconnect notice for his electricity. Pt said he went to [employer] and was told he was over income for assistance. SW called [employer] to check on income guidelines, message left. SW met w/pt, pt's sister in room. Pt okay w/pt's sister being present. SW gave pt additional resources for agencies that may be able to assist with the electric bill, including [employer] and [facility] [employer]. SW also suggested to pt to call the electric company they use to see if they offer any assist. Pt states that they are on a program already, and they were on PIP but got kicked off of PIP due to participation in a different company. Pt states his does the bills and has been in touch w/the electric company. SW spoke w/pt about payment plans, he states his was trying to set that up. SW asked about [employer], pt also states to this SW that they told him they are over income. He states they have used [employer] in the past for assist. Pt then states that when he went to [employer] however, he was actually told when he gets a disconnect notice to come back and they may be able to help. SW encouraged pt to follow up on this. SW also gave pt information for food plaza in the area, and explained to pt if he takes advantage of utilizing food plaza, it may free up money for other bills. Pt states understanding. Pt declines any additional needs, pt given resources that may be able to assist pt w/the electric bill, though as per pt, [employer] may actually be able to help pt now that they have a disconnect notice. BRENT Hernandez, COMMUNITY SERVICES COORDINATOR
--- NOTE | 2018-05-13 13:45 | NURSING ---
Patient was observed to be in Asystole on the monitor, when this RN went in to assess patient he was found to be without a pulse. Family present at bedside.
[2018-05-13] MEDS: Tamsulosin HCl 0.4 MG Capsule PO ×2 (16:53)
[2018-05-13 17:00] LABS: Bedside Glucose 128 mg/dL (70-110)
[2018-05-13] MEDS: Atorvastatin Calcium 40 MG Tablet PO (21:23)
[2018-05-13 21:30] LABS: Bedside Glucose 115 mg/dL (70-110)
[2018-05-14] VITALS (16 sets, daily range): BP systolic 82–144; BP diastolic 55–72; PULSE 74–108; RESP 10–18; TEMP 36.3–37.7; O2SAT 92–99
[2018-05-14] MEDS: 0.9% Normal Saline 1,000 ML 150 ML IV ×2 (01:28→07:33)
--- NOTE | 2018-05-14 06:51 | PN_ITS ---
Subjective: The patient was seen and examined at the bedside this morning. Events from the last 24 hours have been reviewed. The patient is currently afebrile, hemodynamically stable and maintaining appropriate oxygen saturations on room air. The patient only had one formed bowel movement overnight. His diarrhea has essentially resolved. He is currently documented to be overall net +3.3 L for the admission. The patient feels well this morning and denies the presence of abdominal pain. Objective: The patient's most recent lab work, culture data and imaging studies have all been personally reviewed. Stool occult blood was noted to be positive. C. difficile was negative. Bacterial enteric panel was negative. Ova and p arasites is currently pending. Giardia antigen is pending. CT abdomen/pelvis revealed prior subtotal colectomy without evidence of an acute intra-abdominal process. There was incidental note of a stable 1.5 cm spiculated nodule in the right lower lobe. General: Alert, Oriented x3, Cooperative, No apparent distress HEENT: Atraumatic, PERRLA, Normocephalic Oral: No Gingival or Mucosal Lesions/ Ulcerations Neck: Supple, No Nodes, Trachea Midline Lungs: No rhonchi, No wheeze, No rales, Diminished Cardiovascular: Regular rate, Regular Rhythm, Normal S1, Normal S2, No murmurs Abdomen: Bowel Sounds Present, Soft, Non Tender, Non-Distended, Obese Extremities: No clubbing, No cyanosis, Edema Skin: No breakdown Musculoskeletal: No Tenderness to Palpation of Joints or Extremities, No Muscle Wasting Lymphatic: No Cervical, Supraclavicular, or Inguinal Adenopathy Neurological: Cranial nerves II-XII grossly intact, Neuro grossly intact Psych/Mental Status: Alert and oriented to time, place, person, mood and affect Vital Signs Temp Pulse Resp BP Pulse Ox 37.1 C 82 10 L 97/57 L 92 05/14/18 06:00 05/14/18 06:00 05/14/18 06:00 05/14/18 06:00 05/14/18 06:00 Oxygen Delivery Method Room Air Weight: 228 lb 6.382 oz Body Mass Index (BMI) 29.9 Intake and Output for Last 24 Hours 05/12/18 05/13/18 05/14/18 23:59 23:59 23:59 Intake Total 6279.8 / 6279.8 833.8 / 833.8 Output Total 160 / 160 3000 / 3000 600 / 600 Balance -160 / -160 3279.8 / 3279.8 233.8 / 233.8 Labs (Last 48 Hours) 05/12/18 05/12/18 05/12/18 10:32 10:32 10:32 WBC 21.0 H RBC 4.97 Hgb 14.1 Hct 44.5 MCV 89.5 MCH 28.4 MCHC 31.7 L RDW 15.8 H RDW Differential 51.6 H Plt Count 286 MPV 12.4 H Immature Gran % (Auto) 0.400 Neut % (Auto) 71.2 H Lymph % (Auto) 12.[address] [place] % (Auto) 3.9 Eos % (Auto) 11.8 H Baso % (Auto) 0.1 Absolute Neuts (auto) 15.0 H Absolute Lymphs (auto) 2.64 Total Counted Not Reportable Differential Comment SCANNED Diff Path Review PT 14.3 INR 1.1 APTT 30.2 Sodium 135 L Potassium 7.4 H* Chloride 109 H Carbon Dioxide 9.0 L* Anion Gap 17 H BUN 88 H Creatinine 6.58 H Estim Creat Clear Calc 12.61 Est GFR (MDRD) Af Amer 11 L Est GFR (MDRD) Non-Af 9 L BUN/Creatinine Ratio 13.4 Glucose 279 H Lactic Acid Calcium 9.9 Urine Color Urine Clarity Urine pH Ur Specific Cameron Urine Protein Urine Glucose (UA) Urine Ketones Urine Occult Blood Urine Nitrite Urine Bilirubin Urine Urobilinogen Ur Leukocyte Esterase Urine RBC Urine WBC Ur Squamous Epith Cells Urine Bacteria Urine Mucus Ur Random Sodium Urine Creatinine Stl Giardia Antigen MRSA (PCR) POC Glucose 05/12/18 05/12/18 05/12/18 10:32 15:50 15:50 WBC RBC Hgb Hct MCV MCH MCHC RDW RDW Differential Plt Count MPV Immature Gran % (Auto) Neut % (Auto) Lymph % (Auto) [place] % (Auto) Eos % (Auto) Baso % (Auto) Absolute Neuts (auto) Absolute Lymphs (auto) Total Counted Differential Comment Diff Path Review PT INR APTT Sodium Potassium Chloride Carbon Dioxide Anion Gap BUN Creatinine Estim Creat Clear Calc Est GFR (MDRD) Af Amer Est GFR (MDRD) Non-Af BUN/Creatinine Ratio Glucose Lactic Acid 2.9 H Calcium Urine Color Yellow Urine Clarity Clear Urine pH 5.0 Ur Specific Cameron 1.020 Urine Protein 100 H Urine Glucose (UA) 50 H Urine Ketones Negative Urine Occult Blood 10 H Urine Nitrite Negative Urine Bilirubin Negative Urine Urobilinogen Normal Ur Leukocyte Esterase 25 H Urine RBC 0 SEEN Urine WBC 0-5 SEEN Ur Squamous Epith Cells 0-5 SEEN Urine Bacteria RARE Urine Mucus 0 SEEN Ur Random Sodium Urine Creatinine 214.00 Stl Giardia Antigen MRSA (PCR) POC Glucose 05/12/18 05/12/18 05/12/18 15:50 16:20 16:48 WBC RBC Hgb Hct MCV MCH MCHC RDW RDW Differential Plt Count MPV Immature Gran % (Auto) Neut % (Auto) Lymph % (Auto) [place] % (Auto) Eos % (Auto) Baso % (Auto) Absolute Neuts (auto) Absolute Lymphs (auto) Total Counted Differential Comment Diff Path Review PT INR APTT Sodium Potassium Chloride Carbon Dioxide Anion Gap BUN Creatinine Estim Creat Clear Calc Est GFR (MDRD) Af Amer Est GFR (MDRD) Non-Af BUN/Creatinine Ratio Glucose Lactic Acid Calcium Urine Color Urine Clarity Urine pH Ur Specific Cameron Urine Protein Urine Glucose (UA) Urine Ketones Urine Occult Blood Urine Nitrite Urine Bilirubin Urine Urobilinogen Ur Leukocyte Esterase Urine RBC Urine WBC Ur Squamous Epith Cells Urine Bacteria Urine Mucus Ur Random Sodium 32 Urine Creatinine Stl Giardia Antigen MRSA (PCR) Negative POC Glucose 170 H 05/12/18 05/12/18 05/12/18 17:05 17:05 18:35 WBC RBC Hgb Hct MCV MCH MCHC RDW RDW Differential Plt Count MPV Immature Gran % (Auto) Neut % (Auto) Lymph % (Auto) [place] % (Auto) Eos % (Auto) Baso % (Auto) Absolute Neuts (auto) Absolute Lymphs (auto) Total Counted Differential Comment Diff Path Review PT INR APTT Sodium 134 L 137 Potassium 8.3 H* 7.1 H* Chloride 115 H 114 H Carbon Dioxide 11.0 L 12.0 L Anion Gap 8 11 BUN 82 H 84 H Creatinine 6.30 H 6.51 H Estim Creat Clear Calc 13.17 12.75 Est GFR (MDRD) Af Amer 12 L 11 L Est GFR (MDRD) Non-Af 10 L 9 L BUN/Creatinine Ratio 13.0 12.9 Glucose 187 H 187 H Lactic Acid Cancelled Calcium 9.2 9.5 Urine Color Urine Clarity Urine pH Ur Specific Cameron Urine Protein Urine Glucose (UA) Urine Ketones Urine Occult Blood Urine Nitrite Urine Bilirubin Urine Urobilinogen Ur Leukocyte Esterase Urine RBC Urine WBC Ur Squamous Epith Cells Urine Bacteria Urine Mucus Ur Random Sodium Urine Creatinine Stl Giardia Antigen MRSA (PCR) POC Glucose 05/12/18 05/12/18 05/12/18 21:05 23:20 23:20 WBC RBC Hgb Hct MCV MCH MCHC RDW RDW Differential Plt Count MPV Immature Gran % (Auto) Neut % (Auto) Lymph % (Auto) [place] % (Auto) Eos % (Auto) Baso % (Auto) Absolute Neuts (auto) Absolute Lymphs (auto) Total Counted Differential Comment Diff Path Review PT INR APTT Sodium 139 Potassium 5.5 H Chloride 113 H Carbon Dioxide 16.0 L Anion Gap 10 BUN 84 H Creatinine 6.47 H Estim Creat Clear Calc 12.83 Est GFR (MDRD) Af Amer 11 L Est GFR (MDRD) Non-Af 9 L BUN/Creatinine Ratio 13.0 Glucose 207 H Lactic Acid 1.5 Calcium 8.7 Urine Color Urine Clarity Urine pH Ur Specific Cameron Urine Protein Urine Glucose (UA) Urine Ketones Urine Occult Blood Urine Nitrite Urine Bilirubin Urine Urobilinogen Ur Leukocyte Esterase Urine RBC Urine WBC Ur Squamous Epith Cells Urine Bacteria Urine Mucus Ur Random Sodium Urine Creatinine Stl Giardia Antigen MRSA (PCR) POC Glucose 212 H 05/13/18 05/13/18 05/13/18 02:55 02:55 07:15 WBC 13.0 H RBC 3.42 L Hgb 9.8 L Hct 30.4 L MCV 88.9 MCH 28.7 MCHC 32.2 RDW 15.4 H RDW Differential 49.0 H Plt Count 179 MPV 11.9 Immature Gran % (Auto) 0.500 Neut % (Auto) 57.2 Lymph % (Auto) 18.[address] [place] % (Auto) 6.8 Eos % (Auto) 17.0 H Baso % (Auto) 0.2 Absolute Neuts (auto) 7.5 Absolute Lymphs (auto) 2.38 Total Counted Not Reportable Differential Comment Diff Path Review May foll PT INR APTT Sodium 142 138 Potassium 5.1 4.6 Chloride 110 H 107 Carbon Dioxide 21.0 22.0 Anion Gap 11 9 BUN 80 H 76 H Creatinine 5.78 H 5.66 H Estim Creat Clear Calc 14.36 14.66 Est GFR (MDRD) Af Amer 13 L 13 L Est GFR (MDRD) Non-Af 11 L 11 L BUN/Creatinine Ratio 13.8 13.4 Glucose 365 H 382 H Lactic Acid Calcium 7.6 L 7.3 L Urine Color Urine Clarity Urine pH Ur Specific [place] Urine Protein Urine Glucose (UA) Urine Ketones Urine Occult Blood Urine Nitrite Urine Bilirubin Urine Urobilinogen Ur Leukocyte Esterase Urine RBC Urine WBC Ur Squamous Epith Cells Urine Bacteria Urine Mucus Ur Random Sodium Urine Creatinine Stl Giardia Antigen MRSA (PCR) POC Glucose 05/13/18 05/13/18 05/13/18 08:27 09:45 11:09 WBC RBC Hgb Hct MCV MCH MCHC RDW RDW Differential Plt Count MPV Immature Gran % (Auto) Neut % (Auto) Lymph % (Auto) [place] % (Auto) Eos % (Auto) Baso % (Auto) Absolute Neuts (auto) Absolute Lymphs (auto) Total Counted Differential Comment Diff Path Review PT INR APTT Sodium Potassium Chloride Carbon Dioxide Anion Gap BUN Creatinine Estim Creat Clear Calc Est GFR (MDRD) Af Amer Est GFR (MDRD) Non-Af BUN/Creatinine Ratio Glucose Lactic Acid Calcium Urine Color Urine Clarity Urine pH Ur Specific [place] Urine Protein Urine Glucose (UA) Urine Ketones Urine Occult Blood Urine Nitrite Urine Bilirubin Urine Urobilinogen Ur Leukocyte Esterase Urine RBC Urine WBC Ur Squamous Epith Cells Urine Bacteria Urine Mucus Ur Random Sodium Urine Creatinine Stl Giardia Antigen Pending MRSA (PCR) POC Glucose 209 H 321 H 05/13/18 05/13/18 16:50 21:21 WBC RBC Hgb Hct MCV MCH MCHC RDW RDW Differential Plt Count MPV Immature Gran % (Auto) Neut % (Auto) Lymph % (Auto) [place] % (Auto) Eos % (Auto) Baso % (Auto) Absolute Neuts (auto) Absolute Lymphs (auto) Total Counted Differential Comment Diff Path Review PT INR APTT Sodium Potassium Chloride Carbon Dioxide Anion Gap BUN Creatinine Estim Creat Clear Calc Est GFR (MDRD) Af Amer Est GFR (MDRD) Non-Af BUN/Creatinine Ratio Glucose Lactic Acid Calcium Urine Color Urine Clarity Urine pH Ur Specific [place] Urine Protein Urine Glucose (UA) Urine Ketones Urine Occult Blood Urine Nitrite Urine Bilirubin Urine Urobilinogen Ur Leukocyte Esterase Urine RBC Urine WBC Ur Squamous Epith Cells Urine Bacteria Urine Mucus Ur Random Sodium Urine Creatinine Stl Giardia Antigen MRSA (PCR) POC Glucose 128 H 115 H Microbiology 05/12/18 12:40 Stool Enteric Bacteriology - Final 05/12/18 15:50 Stool Stool Lactoferrin - Final 05/12/18 12:40 Stool C. difficile DNA Amplification - Final 05/12/18 11:12 Stool Stool Occult Blood (ИВАН) - Final Occult Blood Positive Clinical Impression(s) from Imaging Studies Abdomen/Pelvis CT 05/12/18 10:09 IMPRESSION: Status post subtotal colectomy. No acute abnormality is seen. Electronically Signed: Herbert Carroll, at 12:47 EST , Service support , Medical Necessity - Tobacco Use Smoking Status: Current some day smoker Tobacco Use: Cigarettes Assessment/Plan All Active Problems (Last Reviewed 04/21/18 @ 09:45 by Yaquelin Simpson) Gastroenteritis (Acute) Severe sepsis (Acute) NICK (acute kidney injury) (Acute) Hyperkalemia (Acute) Acute renal failure superimposed on stage 4 chronic kidney disease (Acute) Metabolic acidosis (Acute) Acute exacerbation of chronic obstructive pulmonary disease (COPD) (Resolved) Acute respiratory failure with hypoxemia (Resolved) Benign neoplasm of right lung (Resolved) Influenza B (Resolved) Lower GI bleed (Resolved) Severe sepsis (Resolved) Streptococcal pneumonia (Resolved) Urinary retention due to benign prostatic hyperplasia (Resolved) RECOMMENDATIONS: 1. Stop continuous IV fluids. 2. Continue bronchodilators 3. Encourage incentive spirometer use while in bed and mobilize patient as tolerated. IMPRESSIONS: 1. Severe sepsis with profound hypovolemia, likely secondary to underlying viral gastroenteritis Resolved. The patient has been adequately volume resuscitated at this time. I would recommend the discontinuation of his continuous supplemental IV fluids. He remains hemodynamically stable. Antibiotics can be discontinued from my perspective. Strongly suspect that the patient had an underlying viral gastroenteritis, which led to profound intravascular volume depletion and subsequent admission to the hospital. 2. Acute on chronic kidney disease/hyperkalemia/metabolic acidosis Improved. Likely prerenal in etiology and related to #1. Creatinine is improving. Potassium is within normal limits. Urine output is appropriate. There is no indication for renal replacement therapy. 3. Baseline COPD without exacerbation Recommend continuing scheduled bronchodilators as ordered. 4. Known history of obstructive sleep apnea While the patient has known obstructive sleep apnea, he has been and continues to be noncompliant with the use of nocturnal Pap therapy. 5. Hypertension/hyperlipidemia/gout/pulmonary nodule/tobacco dependency in remission Complicates care, management, recovery and prognosis. Recommend slow reintroduction of home antihypertensives. This note was generated with [email or web address] dictation software. It may contain incorrect words, spelling, and punctuation that were not noted in checking the note before signing. DISPOSITION: The patient is medically stable for transfer out of the intensive care unit. Given the patient's lack of ongoing ICU or pulmonary needs, will sign off. Please call with any additional questions. Code Visit Inpatient E&M: [id number] [facility] Hosp L3
--- NOTE | 2018-05-14 07:30 | PN_ITS ---
Patient Problems: Active and Suspected Problems (Last Reviewed 04/21/18 @ 09:45 by Yaquelin Simpson) Gastroenteritis (Acute) Severe sepsis (Acute) NICK (acute kidney injury) (Acute) Subjective: Patient seen had a relatively uneventful night patient blood pressure appears to have stabilized plan is for patient to be transferred ICU to [facility] floor with telemetry. Objective: GENERAL: cooperative HEENT: Atraumatic; moist oral mucosa EYES; Anicteric, Normal Conjunctiva NECK; supple, normal thyroid, no distended JVD. RESPIRATORY: Diminished to auscultation bilaterally, CARDIOVASCULAR: Regular S1 S2, no audible murmurs GI: soft, non-tender, normoactive bowel sounds, : No Renal angle tenderness; EXTREMITIES: Edema involving upper extremities, no clubbing, no cyanosis. MUSCULOSKELETAL: No Joint Tenderness; NEURO: Awake; no lateralizing signs. SKIN: Is dry with excoriations on lower extremities PSYCH; Normal affect Vitals/I&O's: Vital Signs Temp Pulse Resp BP Pulse Ox 98.7 F 82 10 L 97/57 L 92 05/14/18 06:00 05/14/18 06:00 05/14/18 06:00 05/14/18 06:00 05/14/18 06:00 Oxygen Delivery Method Room Air Weight: 103.6 kg Body Mass Index (BMI) 29.9 Intake and Output for Last 24 Hours 05/12/18 05/13/18 05/14/18 23:59 23:59 23:59 Intake Total 6279.8 / 6279.8 833.8 / 833.8 Output Total 160 / 160 3000 / 3000 600 / 600 Balance -160 / -160 3279.8 / 3279.8 233.8 / 233.8 Microbiology Past 72 Hours 05/12/18 12:40 Stool Enteric Bacteriology - Final 05/12/18 15:50 Stool Stool Lactoferrin - Final 05/12/18 12:40 Stool C. difficile DNA Amplification - Final 05/12/18 11:12 Stool Stool Occult Blood (ИВАН) - Final Occult Blood Positive Laboratory Results 05/13/18 07:15: Sodium 138, Potassium 4.6, Chloride 107, Carbon Dioxide 22.0, Anion Gap 9, BUN 76 H, Creatinine 5.66 H, Estim Creat Clear Calc 14.66, Est GFR (MDRD) Af Amer 13 L, Est GFR (MDRD) Non-Af 11 L, BUN/Creatinine Ratio 13.4, Glucose 382 H, Calcium 7.3 L 05/13/18 08:27: POC Glucose 209 H 05/13/18 09:45: Stl Giardia Antigen Pending 05/13/18 11:09: POC Glucose 321 H 05/13/18 16:50: POC Glucose 128 H 05/13/18 21:21: POC Glucose 115 H 05/14/18 07:10: WBC Pending, RBC Pending, Hgb Pending, Hct Pending, MCV Pending, MCH Pending, MCHC Pending, RDW Pending, RDW Differential Pending, Plt Count Pending, Neut % (Auto) Pending, Absolute Neuts (auto) Pending, Total Counted Pending 05/14/18 07:10: Sodium Pending, Potassium Pending, Chloride Pending, Carbon Dioxide Pending, Anion Gap Pending, BUN Pending, Creatinine Pending, Est GFR (MDRD) Af Amer Pending, Est GFR (MDRD) Non-Af Pending, BUN/Creatinine Ratio Pending, Glucose Pending, Calcium Pending Current Medications Acetaminophen (Tylenol) 650 mg PO Q6H PRN PRN PRN Reason: PAIN Albuterol Sulfate (Ventolin Aerosols) 2.5 mg INHALATION Q4H PRN PRN Reason: SOB AND OR WHEEZING Last Admin: 05/13/18 04:12 Dose: 2.5 mg Albuterol/Ipratropium (Duoneb) 3 ml INHALATION Q4H.RT PRN PRN Reason: Wheezing Allopurinol (Zyloprim) 300 mg PO DAILY [facility] Last Admin: 05/13/18 08:31 Dose: 300 mg Aspirin (Aspirin, Baby) 81 mg PO DAILY@0800 [facility] Last Admin: 05/13/18 08:30 Dose: 81 mg Atorvastatin Calcium (Lipitor) 40 mg PO QHS [facility] Last Admin: 05/13/18 21:23 Dose: 40 mg Calamine/Phenol (Calmoseptine Ointment) 1 applic TOPICAL BID [facility]; Protocol Last Admin: 05/13/18 21:23 Dose: 1 applicatio Colchicine (Colchicine) 0.6 mg PO TID PRN PRN PRN Reason: GOUT Dextrose (D50w Syringe) 0 gm IV X1 PRN; Protocol PRN Reason: Hypoglycemia Finasteride (Proscar) 5 mg PO DAILY [facility] Last Admin: 05/13/18 08:31 Dose: 5 mg Glucagon () 1 mg IM .X1 PRN PRN Reason: Hypoglycemia Piperacillin Sod/Tazobactam (Sod 3.375 gm/ Sodium Chloride) 50 mls @ 12.5 mls/hr IV Q12 [facility] Last Admin: 05/13/18 22:54 Dose: 12.5 mls/hr Sodium Chloride () 1,000 mls @ 150 mls/hr IV .Q6H40M [facility] Last Admin: 05/14/18 01:28 Dose: 150 mls/hr Insulin Glargine (Lantus (Bkc)) 40 units SC BID [facility] Last Admin: 05/13/18 21:22 Dose: 40 u Insulin Human Lispro (Humalog Kwikpen (Bkc)) 0 unit SC ACHS [facility]; Protocol Last Admin: 05/13/18 21:23 Dose: Not Given Insulin Human Lispro (Humalog Kwikpen (Bkc)) 20 unit SC TIDCM [facility] Last Admin: 05/13/18 16:52 Dose: 20 units Loperamide HCl (Imodium) 2 mg PO Q6H PRN PRN PRN Reason: Diarrhea Ondansetron HCl (Zofran) 4 mg IV Q6H PRN PRN PRN Reason: NAUSEA Pantoprazole Sodium (Protonix) 40 mg PO DAILY [facility] Last Admin: 05/13/18 08:31 Dose: 40 mg Sodium Chloride () 5 - 15 ml IV UD PRN PRN Reason: SALINE FLUSH Tamsulosin HCl (Flomax) 0.4 mg PO DAILY@1730 [facility] Last Admin: 05/13/18 16:53 Dose: 0.4 mg Medical Necessity - Tobacco Use Smoking Status: Current some day smoker Tobacco Use: Cigarettes Assessment/Plan All Active Problems (Last Reviewed 04/21/18 @ 09:45 by Yaquelin Simpson) Gastroenteritis (Acute) Severe sepsis (Acute) NICK (acute kidney injury) (Acute) Hyperkalemia (Acute) Acute renal failure superimposed on stage 4 chronic kidney disease (Acute) Metabolic acidosis (Acute) Acute exacerbation of chronic obstructive pulmonary disease (COPD) (Resolved) Acute respiratory failure with hypoxemia (Resolved) Benign neoplasm of right lung (Resolved) Influenza B (Resolved) Lower GI bleed (Resolved) Severe sepsis (Resolved) Streptococcal pneumonia (Resolved) Urinary retention due to benign prostatic hyperplasia (Resolved) Patient is a 62-year-old gentleman with past medical history significant chronic kidney disease stage IV, admitted with bloody watery diarrhea weeks duration. Patient was found to have acute kidney injury with hyperkalemia on admission admitted to the intensive care unit for subsequent management 1. Acute kidney injury from severe dehydration from patient watery diarrhea (workup has remained negative to date) admitted to the intensive care unit where patient was fluid resuscitated with consultation placed to patient's manager environmental Dr. Ira Magana 2. Hyperkalemia secondary to above patient did receive Kayexalate was on losartan held on admission. Hyperkalemia resolved 3. Chronic kidney disease stage IV patient presented with worsening kidney function as a result of acute kidney injury 4. History of colon cancer status post subtotal colectomy patient remains in remission 5. Diabetes mellitus type 2 did continue with patient's patient home regimen in addition to Accu-Cheks before meals and at bedtime with sliding scale coverage 6. CAD with previous CABG and subsequent stent placement 7. 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 COPD currently not in exacerbation 9. Obstructive sleep apnea patient has been noncompliant with CPAP 10. Paroxysmal atrial fibrillation 11. Dyslipidemia 12. Gout 13. BPH 14. DVT prophylaxis avoided the use of chemoprophylaxis in view of patient presenting with bloody diarrhea 15. Severe sepsis ruled out patient low blood pressure was from hypoperfusion. Code Visit Inpatient E&M: [id number] [facility] Hosp L3
[2018-05-14 07:35] LABS: Anion Gap 5 (5-15); BUN 69 mg/dL (7-18); BUN/Creat Ratio 15.1 RATIO (10-20); Chloride 118 mmol/L (98-107); Creatinine, Serum 4.57 mg/dL (0.70-1.30); EST Glomerular Filtration Rate 14 mL/min (>60); Est Glom Filt Rate - Afr Amer 17 mL/min (>60); Estimated Creatinine Clearance 18.16 ml/min; Glucose 77 mg/dL (74-106); Potassium 4.7 mmol/L (3.5-5.1); Sodium Level 143 mmol/L (136-145)
[2018-05-14 07:40] LABS: Absolute Lymphocyte Count 2.07 X10^3/ul (0.83-4.51); Absolute Neutrophil Count 4.6 X10^3/uL (2.0-7.7); Basophil# 0.02 X10^3/uL; Basophil% 0.2 % (0-1); Eosinophils% 22.3 % (0-5); Hematocrit 29.9 % (40-54); Hemoglobin 9.6 g/dl (13.0-16.5); Lymphocyte # 2.07 X10^3/ul (4.0); Lymphocyte % 21.2 % (19-41); Mean Corp Hgb Conc 32.1 g/gl (32-36); Mean Corpuscular Hgb 28.3 pg (27.0-32.0); Mean Corpuscular Volume 88.2 fL (80-94); Mean Platelet Vol. 11.9 fl (6.2-12.0); Monocyte# 0.88 X10^3/uL; Neutrophil # 4.58 X10^3/uL (2.7-7.7); Platelet Count 156 K/mm3 (150-450); RBC Distribution Width CV 15.5 % (11.6-14.6); Red Blood Count 3.39 M/mm3 (4.6-6.2); White Blood Count 9.8 K/mm3 (4.4-11.0)
[2018-05-14 07:42] LABS: Differential Indicated SCAN CRITERIA MET; Eosinophil# 2.18 X10^3/uL; POSITIVE COUNT NO; POSITIVE DIFFERENTIAL YES; POSITIVE MORPHOLOGY NO
[2018-05-14 08:11] LABS: Differential Comment SCANNED
[2018-05-14 08:12] LABS: Hypochromasia 2+
[2018-05-14] MEDS: Aspirin 81 MG TAB.CHEW PO (08:41)
--- NOTE | 2018-05-14 08:50 | PN.RENAL_ITS ---
Patient Problems: Active and Suspected Problems (Last Reviewed 04/21/18 @ 09:45 by Yaquelin Simpson) Gastroenteritis (Acute) Severe sepsis (Acute) NICK (acute kidney injury) (Acute) Subjective: diarrhea resolved. Renal fxn improving. Complains of rt arm swelling. Oxygenation stable but appears SOB. Will dc iv fluids. - Physical Exam General: Alert, Oriented x3, Cooperative, No apparent distress Oral: Dry Mucosa Lungs: Clear to auscultation Cardiovascular: Regular rate Abdomen: Bowel Sounds Present, Soft, Non Tender, Non-Distended Extremities: No edema - BLE, Edema - RUE Skin: - - ecchymosis on arms Musculoskeletal: No Muscle Wasting Neurological: - - no tremor Psych/Mental Status: Normal Affect, Appropriate, Alert and oriented to time, place, person, mood and affect Vital Signs Temp Pulse Resp BP Pulse Ox 97.3 F L 108 H 18 115/72 95 05/14/18 08:44 05/14/18 08:44 05/14/18 08:44 05/14/18 08:44 05/14/18 08:44 Oxygen Delivery Method Room Air Weight: 103.6 kg Body Mass Index (BMI) 29.9 Intake and Output for Last 24 Hours 05/12/18 05/13/18 05/14/18 23:59 23:59 23:59 Intake Total 6279.8 / 6279.8 1330.8 / 1330.8 Output Total 160 / 160 3000 / 3000 600 / 600 Balance -160 / -160 3279.8 / 3279.8 730.8 / 730.8 Microbiology Past 72 Hours 05/12/18 12:40 Enteric Bacteriology - Final Stool 05/12/18 15:50 Stool Lactoferrin - Final Stool 05/12/18 12:40 C. difficile DNA Amplification - Final Stool 05/12/18 11:12 Stool Occult Blood (ИВАН) - Final Stool Occult Blood Positive Laboratory Tests Past 24 Hrs 05/13/18 05/14/18 05/14/18 09:45 07:10 07:10 WBC 9.8 RBC 3.39 L Hgb 9.6 L Hct 29.9 L MCV 88.2 MCH 28.3 MCHC 32.1 RDW 15.5 H RDW Differential 50.0 H Plt Count 156 MPV 11.9 Immature Gran % (Auto) 0.300 Neut % (Auto) 47.0 Lymph % (Auto) 21.2 [place] % (Auto) 9.0 Eos % (Auto) 22.3 H Baso % (Auto) 0.2 Absolute Neuts (auto) 4.6 Absolute Lymphs (auto) 2.07 Total Counted Not Reportable Differential Comment SCANNED Diff Path Review May foll Hypochromasia 2+ Sodium 143 Potassium 4.7 Chloride 118 H Carbon Dioxide 20.0 L Anion Gap 5 BUN 69 H Creatinine 4.57 H Estim Creat Clear Calc 18.16 Est GFR (MDRD) Af Amer 17 L Est GFR (MDRD) Non-Af 14 L BUN/Creatinine Ratio 15.1 Glucose 77 Calcium 8.0 L Stl Giardia Antigen Pending POC Glucose 05/13/18 05/13/18 05/13/18 21:21 16:50 11:09 POC Glucose 115 H 128 H 321 H Medical Necessity - Tobacco Use Smoking Status: Current some day smoker Tobacco Use: Cigarettes Assessment/Plan All Active Problems (Last Reviewed 04/21/18 @ 09:45 by Yaquelin Simpson) Gastroenteritis (Acute) Severe sepsis (Acute) NICK (acute kidney injury) (Acute) Hyperkalemia (Acute) Acute renal failure superimposed on stage 4 chronic kidney disease (Acute) Metabolic acidosis (Acute) Acute exacerbation of chronic obstructive pulmonary disease (COPD) (Resolved) Acute respiratory failure with hypoxemia (Resolved) Benign neoplasm of right lung (Resolved) Influenza B (Resolved) Lower GI bleed (Resolved) Severe sepsis (Resolved) Streptococcal pneumonia (Resolved) Urinary retention due to benign prostatic hyperplasia (Resolved) 1. Acute on chronic disease stage IV underlying diabetic nephropathy. Acute event due to dehydration, diarrhea, hypotension. Renal fxn improving 2. Acute anion gap metabolic acidosis with lactic acidosis due to hypotension. 3. Severe hyperkalemia resolved. Continue to hold losartan for now. 4. watery diarrhea resolved stool neg for enteric pathogens 5. DM type II primary care management 6. DC iv fluids.
[2018-05-14 08:51] LABS: Bedside Glucose 75 mg/dL (70-110)
--- NOTE | 2018-05-14 08:51 | CASEMGMT ---
SW received a call back from [employer] and a message was left stating if pt got a cutoff notice, he can bring this in along w/ID and proof of income, and they will be able to assist pt. SW gave this information to the pt, he was already aware. SW encouraged pt to have go to [facility] [employer] to address the issue. Pt thanked [facility] for the information. No further social service needs anticipated at this time. BRENT Hernandez, ENDOCRINOLOGY SPECIALIST
[2018-05-14 09:05] LABS: Pathologist Review Reviewed
[2018-05-14] MEDS: Menthol/Lanolin/Calamine/Znox 113 GM Tube 1 APPLIC TOPICAL ×2 (09:17→23:11)
[2018-05-14] MEDS: Finasteride 5 MG Tablet PO (09:18)
[2018-05-14] MEDS: Pantoprazole Sodium 40 MG Tablet PO (09:18)
[2018-05-14] MEDS: Allopurinol 300 MG Tablet PO (09:18)
[2018-05-14] MEDS: Insulin Lispro 100 UNIT/ML INSULN.PEN 20 UNIT SC ×2 (12:22→17:16)
[2018-05-14 12:31] LABS: Bedside Glucose 164 mg/dL (70-110)
[2018-05-14] MEDS: Loperamide 2 MG Capsule PO (15:07)
[2018-05-14 17:20] LABS: Bedside Glucose 126 mg/dL (70-110)
[2018-05-14] MEDS: Atorvastatin Calcium 40 MG Tablet PO (22:22)
[2018-05-14 23:21] LABS: Bedside Glucose 125 mg/dL (70-110)
[2018-05-15] VITALS (10 sets, daily range): BP systolic 125–161; BP diastolic 75–95; PULSE 71–108; RESP 14–20; TEMP 36.5–36.7; O2SAT 96–97
[2018-05-15] MEDS: 0.9% NaCl Peripheral Flush Adult/Peds IV ×6 (06:45→07:35)
[2018-05-15 06:56] LABS: Bedside Glucose 110 mg/dL (70-110)
[2018-05-15 07:53] LABS: Absolute Lymphocyte Count 1.81 X10^3/ul (0.83-4.51); Absolute Neutrophil Count 4.4 X10^3/uL (2.0-7.7); Basophil# 0.03 X10^3/uL; Basophil% 0.3 % (0-1); Eosinophil# 1.88 X10^3/uL; Hematocrit 31.6 % (40-54); Hemoglobin 10.1 g/dl (13.0-16.5); Lymphocyte # 1.81 X10^3/ul (4.0); Lymphocyte % 20.2 % (19-41); Mean Corpuscular Hgb 28.1 pg (27.0-32.0); Mean Platelet Vol. 12.1 fl (6.2-12.0); Monocyte% 8.9 % (0-10); Neutrophil % 49.3 % (47-70); Platelet Count 165 K/mm3 (150-450); RBC Distribution Width CV 15.4 % (11.6-14.6); RBC Distribution Width SD 49.7 fl (35.1-43.9); Red Blood Count 3.59 M/mm3 (4.6-6.2)
[2018-05-15 07:56] LABS: POSITIVE COUNT NO; POSITIVE DIFFERENTIAL NO; POSITIVE MORPHOLOGY NO
[2018-05-15 08:17] LABS: Anion Gap 9 (5-15); BUN 63 mg/dL (7-18); BUN/Creat Ratio 17.5 RATIO (10-20); Calcium,Total 8.6 mg/dL (8.5-10.1); Chloride 117 mmol/L (98-107); Creatinine, Serum 3.59 mg/dL (0.70-1.30); EST Glomerular Filtration Rate 18 mL/min (>60); Est Glom Filt Rate - Afr Amer 22 mL/min (>60); Estimated Creatinine Clearance 23.12 ml/min; Glucose 105 mg/dL (74-106); Magnesium 1.4 mg/dL (1.6-2.6); Sodium Level 145 mmol/L (136-145)
[2018-05-15 08:22] LABS: Giardia Lamblia, Stool EIA Negative (Negative)
--- NOTE | 2018-05-15 08:22 | PCM.PN.HOSP ---
Patient Problems: Active and Suspected Problems (Last Reviewed 04/21/18 @ 09:45 by Yaquelin Simpson) Gastroenteritis (Acute) Severe sepsis (Acute) NICK (acute kidney injury) (Acute) Subjective: Seen states frequency of diarrhea subsided, patient's kidney function continues to improve. Stool for Giardia serology still pending. Magnesium 1.4 repletion initiated Objective: GENERAL: cooperative HEENT: Atraumatic; moist oral mucosa EYES; Anicteric, Normal Conjunctiva NECK; supple, normal thyroid, no distended JVD. RESPIRATORY: Diminished to auscultation bilaterally, CARDIOVASCULAR: Regular S1 S2, no audible murmurs GI: soft, non-tender, normoactive bowel sounds, : No Renal angle tenderness; EXTREMITIES: Edema involving upper extremities, no clubbing, no cyanosis. MUSCULOSKELETAL: No Joint Tenderness; NEURO: Awake; no lateralizing signs. SKIN: Is dry with excoriations on lower extremities PSYCH; Normal affect Vitals/I&O's: Vital Signs Temp Pulse Resp BP Pulse Ox 97.9 F 82 16 125/75 H 96 05/15/18 02:07 05/15/18 07:32 05/15/18 02:07 05/15/18 02:07 05/15/18 02:07 Oxygen Delivery Method Room Air Weight: 101.5 kg Body Mass Index (BMI) 29.9 Intake and Output for Last 24 Hours 05/13/18 05/14/18 05/15/18 23:59 23:59 23:59 Intake Total 6279.8 / 6279.8 2030.8 / 2030.8 400 / 400 Output Total 3000 / 3000 1700 / 1700 1150 / 1150 Balance 3279.8 / 3279.8 330.8 / 330.8 -750 / -750 Microbiology Past 72 Hours 05/12/18 12:40 Stool Enteric Bacteriology - Final 05/12/18 15:50 Stool Stool Lactoferrin - Final 05/12/18 12:40 Stool C. difficile DNA Amplification - Final 05/12/18 11:12 Stool Stool Occult Blood (ИВАН) - Final Occult Blood Positive Laboratory Results 05/13/18 02:55: Diff Path Review Reviewed 05/14/18 08:39: POC Glucose 75 05/14/18 12:16: POC Glucose 164 H 05/14/18 17:14: POC Glucose 126 H 05/14/18 22:17: POC Glucose 125 H 05/15/18 06:41: POC Glucose 110 05/15/18 07:30: WBC 9.0, RBC 3.59 L, Hgb 10.1 L, Hct 31.6 L, MCV 88.0, MCH 28.1, MCHC 32.0, RDW 15.4 H, RDW Differential 49.7 H, Plt Count 165, MPV 12.1 H, Immature Gran % (Auto) 0.300, Neut % (Auto) 49.3, Lymph % (Auto) 20.2, [place] % (Auto) 8.9, Eos % (Auto) 21.0 H, Baso % (Auto) 0.3, Absolute Neuts (auto) 4.4, Absolute Lymphs (auto) 1.81, Total Counted Not Reportable 05/15/18 07:30: Sodium 145, Potassium 5.0, Chloride 117 H, Carbon Dioxide 19.0 L, Anion Gap 9, BUN 63 H, Creatinine 3.59 H, Estim Creat Clear Calc 23.12, Est GFR (MDRD) Af Amer 22 L, Est GFR (MDRD) Non-Af 18 L, BUN/Creatinine Ratio 17.5, Glucose 105, Calcium 8.6, Magnesium 1.4 L Current Medications Acetaminophen (Tylenol) 650 mg PO Q6H PRN PRN PRN Reason: PAIN Albuterol Sulfate (Ventolin Aerosols) 2.5 mg INHALATION Q4H PRN PRN Reason: SOB AND OR WHEEZING Last Admin: 05/13/18 04:12 Dose: 2.5 mg Albuterol/Ipratropium (Duoneb) 3 ml INHALATION Q4H.RT PRN PRN Reason: Wheezing Allopurinol (Zyloprim) 300 mg PO DAILY [facility] Last Admin: 05/14/18 09:18 Dose: 300 mg Aspirin (Aspirin, Baby) 81 mg PO DAILY@0800 [facility] Last Admin: 05/14/18 08:41 Dose: 81 mg Atorvastatin Calcium (Lipitor) 40 mg PO QHS [facility] Last Admin: 05/14/18 22:22 Dose: 40 mg Calamine/Phenol (Calmoseptine Ointment) 1 applic TOPICAL BID [facility]; Protocol Last Admin: 05/14/18 23:11 Dose: 1 applicatio Colchicine (Colchicine) 0.6 mg PO TID PRN PRN PRN Reason: GOUT Dextrose (D50w Syringe) 0 gm IV X1 PRN; Protocol PRN Reason: Hypoglycemia Finasteride (Proscar) 5 mg PO DAILY [facility] Last Admin: 05/14/18 09:18 Dose: 5 mg Glucagon () 1 mg IM .X1 PRN PRN Reason: Hypoglycemia Insulin Glargine (Lantus (Bkc)) 40 units SC BID [facility] Last Admin: 05/14/18 23:09 Dose: 40 u Insulin Human Lispro (Humalog Kwikpen (Bkc)) 0 unit SC ACHS [facility]; Protocol Last Admin: 05/15/18 06:48 Dose: Not Given Insulin Human Lispro (Humalog Kwikpen (Bkc)) 20 unit SC TIDCM [facility] Last Admin: 05/14/18 17:16 Dose: 20 units Loperamide HCl (Imodium) 2 mg PO Q6H PRN PRN PRN Reason: Diarrhea Last Admin: 05/14/18 15:07 Dose: 2 mg Ondansetron HCl (Zofran) 4 mg IV Q6H PRN PRN PRN Reason: NAUSEA Pantoprazole Sodium (Protonix) 40 mg PO DAILY [facility] Last Admin: 05/14/18 09:18 Dose: 40 mg Sodium Bicarbonate (Sodium Bicarbonate) 650 mg PO BID [facility] Sodium Chloride () 5 - 15 ml IV UD PRN PRN Reason: SALINE FLUSH Last Admin: 05/15/18 07:35 Dose: 10 ml Tamsulosin HCl (Flomax) 0.4 mg PO DAILY@1730 [facility] Last Admin: 05/13/18 16:53 Dose: 0.4 mg Medical Necessity - Tobacco Use Smoking Status: Current some day smoker Tobacco Use: Cigarettes Assessment/Plan All Active Problems (Last Reviewed 04/21/18 @ 09:45 by Yaquelin Simpson) Gastroenteritis (Acute) Severe sepsis (Acute) NICK (acute kidney injury) (Acute) Hyperkalemia (Acute) Acute renal failure superimposed on stage 4 chronic kidney disease (Acute) Metabolic acidosis (Acute) Acute exacerbation of chronic obstructive pulmonary disease (COPD) (Resolved) Acute respiratory failure with hypoxemia (Resolved) Benign neoplasm of right lung (Resolved) Influenza B (Resolved) Lower GI bleed (Resolved) Severe sepsis (Resolved) Streptococcal pneumonia (Resolved) Urinary retention due to benign prostatic hyperplasia (Resolved) Patient is a 62-year-old gentleman with past medical history significant chronic kidney disease stage IV, admitted with bloody watery diarrhea weeks duration. Patient was found to have acute kidney injury with hyperkalemia on admission admitted to the intensive care unit for subsequent management 1. Acute kidney injury from severe dehydration from patient watery diarrhea (workup has remained negative to date) admitted to the intensive care unit where patient was fluid resuscitated with consultation placed to patient's direct support specialist Dr. Ira Magana. Patient kidney function continues to improve 2. Chronic diarrhea with In progress stool for Giardia pending 3. Chronic kidney disease stage IV patient presented with worsening kidney function as a result of acute kidney injury 4. History of colon cancer status post subtotal colectomy patient remains in remission 5. Diabetes mellitus type 2 did continue with patient's patient home regimen in addition to Accu-Cheks before meals and at bedtime with sliding scale coverage 6. CAD with previous CABG and subsequent stent placement 7. 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 COPD currently not in exacerbation 9. Obstructive sleep apnea patient has been noncompliant with CPAP 10. Paroxysmal atrial fibrillation 11. Dyslipidemia 12. Gout 13. BPH 14. DVT prophylaxis avoided the use of chemoprophylaxis in view of patient presenting with bloody diarrhea 15. Severe sepsis ruled out patient low blood pressure was from hypoperfusion. 16. Hypomagnesemia corrected per protocol 17. Hyperkalemia secondary to above patient did receive Kayexalate was on losartan held on admission. Hyperkalemia resolved Code Visit Inpatient E&M: 71828 Subs Hosp L2
[2018-05-15] MEDS: Sodium Bicarbonate 650 MG Tablet PO ×2 (08:58→21:42)
[2018-05-15] MEDS: Pantoprazole Sodium 40 MG Tablet PO (08:58)
[2018-05-15] MEDS: Allopurinol 300 MG Tablet PO (08:58)
[2018-05-15] MEDS: Finasteride 5 MG Tablet PO (08:58)
[2018-05-15] MEDS: Aspirin 81 MG TAB.CHEW PO (08:59)
[2018-05-15] MEDS: Menthol/Lanolin/Calamine/Znox 113 GM Tube 1 APPLIC TOPICAL ×2 (09:00→21:43)
[2018-05-15 09:11] LABS: Bedside Glucose 93 mg/dL (70-110)
[2018-05-15 12:10] LABS: Bedside Glucose 177 mg/dL (70-110)
[2018-05-15] MEDS: Insulin Lispro 100 UNIT/ML INSULN.PEN SC ×4 (12:51→21:42)
[2018-05-15 13:06] LABS: Pathologist Review Reviewed
--- NOTE | 2018-05-15 14:39 | PCM.PN.REN ---
Patient Problems: Active and Suspected Problems (Last Reviewed 04/21/18 @ 09:45 by Yaquelin Simpson) Gastroenteritis (Acute) Severe sepsis (Acute) NICK (acute kidney injury) (Acute) Subjective: Diarrhea resolved. Renal function continues to improve. Potassium mildly elevated at 5.0. Denied eating foods high in potassium recently. - Physical Exam General: Alert, Oriented x3, Cooperative, No apparent distress Lungs: Clear to auscultation Cardiovascular: Regular rate, No rub noted Abdomen: Bowel Sounds Present, Soft, Non Tender, Non-Distended Extremities: No edema - Bilateral lower extremity, Edema - Mild right upper extremity edema, PICC line left arm Musculoskeletal: No Muscle Wasting Psych/Mental Status: Normal Affect, Appropriate, Alert and oriented to time, place, person, mood and affect Vital Signs Temp Pulse Resp BP Pulse Ox 97.7 F L 71 16 155/87 H 97 05/15/18 10:00 05/15/18 10:00 05/15/18 10:00 05/15/18 10:00 05/15/18 10:00 Oxygen Delivery Method Room Air Weight: 101.5 kg Body Mass Index (BMI) 29.9 Intake and Output for Last 24 Hours 05/13/18 05/14/18 05/15/18 23:59 23:59 23:59 Intake Total 6279.8 / 6279.8 2030.8 / 2030.8 400 / 400 Output Total 3000 / 3000 1700 / 1700 1650 / 1650 Balance 3279.8 / 3279.8 330.8 / 330.8 -1250 / -1250 Microbiology Past 72 Hours 05/12/18 12:40 Enteric Bacteriology - Final Stool 05/12/18 15:50 Stool Lactoferrin - Final Stool 05/12/18 12:40 C. difficile DNA Amplification - Final Stool 05/12/18 11:12 Stool Occult Blood (ИВАН) - Final Stool Occult Blood Positive Laboratory Tests Past 24 Hrs 05/13/18 05/14/18 05/15/18 09:45 07:10 07:30 WBC 9.0 RBC 3.59 L Hgb 10.1 L Hct 31.6 L MCV 88.0 MCH 28.1 MCHC 32.0 RDW 15.4 H RDW Differential 49.7 H Plt Count 165 MPV 12.1 H Immature Gran % (Auto) 0.300 Neut % (Auto) 49.3 Lymph % (Auto) 20.2 [place] % (Auto) 8.9 Eos % (Auto) 21.0 H Baso % (Auto) 0.3 Absolute Neuts (auto) 4.4 Absolute Lymphs (auto) 1.81 Total Counted Not Reportable Diff Path Review Reviewed Sodium Potassium Chloride Carbon Dioxide Anion Gap BUN Creatinine Estim Creat Clear Calc Est GFR (MDRD) Af Amer Est GFR (MDRD) Non-Af BUN/Creatinine Ratio Glucose Calcium Magnesium Stl Giardia Antigen Negative 05/15/18 07:30 WBC RBC Hgb Hct MCV MCH MCHC RDW RDW Differential Plt Count MPV Immature Gran % (Auto) Neut % (Auto) Lymph % (Auto) [place] % (Auto) Eos % (Auto) Baso % (Auto) Absolute Neuts (auto) Absolute Lymphs (auto) Total Counted Diff Path Review Sodium 145 Potassium 5.0 Chloride 117 H Carbon Dioxide 19.0 L Anion Gap 9 BUN 63 H Creatinine 3.59 H Estim Creat Clear Calc 23.12 Est GFR (MDRD) Af Amer 22 L Est GFR (MDRD) Non-Af 18 L BUN/Creatinine Ratio 17.5 Glucose 105 Calcium 8.6 Magnesium 1.4 L Stl Giardia Antigen POC Glucose 05/15/18 05/15/18 05/15/18 12:01 09:04 06:41 POC Glucose 177 H 93 110 05/14/18 05/14/18 22:17 17:14 POC Glucose 125 H 126 H Medical Necessity - Tobacco Use Smoking Status: Current some day smoker Tobacco Use: Cigarettes Assessment/Plan All Active Problems (Last Reviewed 04/21/18 @ 09:45 by Yaquelin Simpson) Gastroenteritis (Acute) Severe sepsis (Acute) NICK (acute kidney injury) (Acute) Hyperkalemia (Acute) Acute renal failure superimposed on stage 4 chronic kidney disease (Acute) Metabolic acidosis (Acute) Acute exacerbation of chronic obstructive pulmonary disease (COPD) (Resolved) Acute respiratory failure with hypoxemia (Resolved) Benign neoplasm of right lung (Resolved) Influenza B (Resolved) Lower GI bleed (Resolved) Severe sepsis (Resolved) Streptococcal pneumonia (Resolved) Urinary retention due to benign prostatic hyperplasia (Resolved) 1. Acute on chronic disease stage IV underlying diabetic nephropathy. Acute event due to dehydration, diarrhea, hypotension. Renal fxn improving. Will need evaluation for access placement as outpatient with Dr. Enoch Dick. 2. Acute anion gap metabolic acidosis with lactic acidosis due to hypotension. Resume bicarbonate tablets 3. Severe hyperkalemia resolved. Continue to hold losartan for now. 4. watery diarrhea resolved stool neg for enteric pathogens 5. DM type II primary care management
[2018-05-15] MEDS: Tamsulosin HCl 0.4 MG Capsule PO (17:01)
[2018-05-15 17:20] LABS: Bedside Glucose 116 mg/dL (70-110)
[2018-05-15] MEDS: diazePAM 5 MG Tablet PO (21:02)
[2018-05-15] MEDS: Atorvastatin Calcium 40 MG Tablet PO (21:42)
[2018-05-15 22:20] LABS: Bedside Glucose 188 mg/dL (70-110)
[2018-05-16 03:28] VITALS: BP 136/79; PULSE 78; RESP 18; TEMP 36.4; O2SAT 95
[2018-05-16 04:02] VITALS: PULSE 68
[2018-05-16] MEDS: 0.9% NaCl Peripheral Flush Adult/Peds IV ×3 (05:52→05:57)
--- NOTE | 2018-05-16 06:04 | NURSING ---
Lab called about when the Ova and Parasites stool would be resulted. Per Osm[place] in lab, Giardia came back negative. Results not showing up in computer, so lab will look into this.
[2018-05-16 06:19] LABS: Absolute Lymphocyte Count 1.69 X10^3/ul (0.83-4.51); Absolute Neutrophil Count 4.5 X10^3/uL (2.0-7.7); Basophil# 0.02 X10^3/uL; Basophil% 0.2 % (0-1); Eosinophil# 1.47 X10^3/uL; Eosinophils% 17.6 % (0-5); Hematocrit 30.8 % (40-54); Hemoglobin 9.9 g/dl (13.0-16.5); Lymphocyte # 1.69 X10^3/ul (4.0); Lymphocyte % 20.3 % (19-41); Mean Corp Hgb Conc 32.1 g/gl (32-36); Mean Corpuscular Volume 87.3 fL (80-94); Mean Platelet Vol. 12.6 fl (6.2-12.0); Monocyte# 0.66 X10^3/uL; Monocyte% 7.9 % (0-10); Neutrophil # 4.46 X10^3/uL (2.7-7.7); Neutrophil % 53.5 % (47-70); Platelet Count 168 K/mm3 (150-450); RBC Distribution Width CV 15.1 % (11.6-14.6); RBC Distribution Width SD 48.3 fl (35.1-43.9); Red Blood Count 3.53 M/mm3 (4.6-6.2); White Blood Count 8.3 K/mm3 (4.4-11.0)
[2018-05-16 06:24] LABS: POSITIVE COUNT NO; POSITIVE DIFFERENTIAL NO; POSITIVE MORPHOLOGY NO
[2018-05-16 06:29] LABS: Anion Gap 9 (5-15); BUN 58 mg/dL (7-18); BUN/Creat Ratio 19.2 RATIO (10-20); Calcium,Total 8.6 mg/dL (8.5-10.1); Chloride 115 mmol/L (98-107); Creatinine, Serum 3.02 mg/dL (0.70-1.30); EST Glomerular Filtration Rate 22 mL/min (>60); Est Glom Filt Rate - Afr Amer 27 mL/min (>60); Estimated Creatinine Clearance 27.48 ml/min; Glucose 109 mg/dL (74-106); Potassium 5.1 mmol/L (3.5-5.1); Sodium Level 144 mmol/L (136-145)
[2018-05-16 07:30] LABS: Bedside Glucose 105 mg/dL (70-110)
[2018-05-16 07:31] VITALS: BP 140/84; PULSE 85; RESP 16; TEMP 36.6; O2SAT 98
[2018-05-16 08:05] VITALS: PULSE 106
[2018-05-16] MEDS: Aspirin 81 MG TAB.CHEW PO (08:17)
[2018-05-16] MEDS: Insulin Lispro 100 UNIT/ML INSULN.PEN SC (08:18)
--- NOTE | 2018-05-16 08:28 | DCINST_ITS ---
- Discharge Diagnoses Current Active Problems: Current Active and Chronic Problems (Last Reviewed 04/21/18 @ 09:45 by Yaquelin Simpson) Gastroenteritis (Acute) Severe sepsis (Acute) NICK (acute kidney injury) (Acute) CKD (chronic kidney disease) stage 4, GFR 15-29 ml/min (Chronic) Nicotine abuse (Chronic) You will use the following diet at home:: Calorie/Carbohydrate Controlled (specify 1200, 1400, etc) - 1800, Renal (restricted protein/sodium) Your food should be the consistency of: Regular Discharge Activity: May not drive while taking narcotic pain medications. Allergies/Adverse Reactions: Allergies No Known Allergies Allergy (Verified 04/21/18 09:45) Medications to take at Discharge Aspirin 81 mg PO DAILY 05/14/17 Nitroglycerin [Nitrostat] 0.4 mg SUBLINGUAL Q5M PRN 05/14/17 Oxycodone [Oxyir] 5 mg PO BID PRN PRN 05/14/17 Simvastatin 80 mg PO QHS 05/14/17 Oxygen, Home [Home Oxygen] 2 - 3 lpm NASAL UD #1 unit 05/18/17 Albuterol Aerosols [Ventolin Aerosols] 2.5 mg INHALATION Q4H PRN PRN 09/15/17 Allopurinol [Zyloprim] 300 mg PO DAILY 09/15/17 Cilostazol 50 mg PO BID 09/15/17 Colchicine 0.6 mg PO TID PRN 09/15/17 Ergocalciferol [Vitamin D] 50,000 unit PO Q7D 09/15/17 Finasteride [Proscar] 5 mg PO DAILY 09/15/17 Isosorbide Mononitrate [Imdur] 30 mg PO DAILY 09/15/17 Metoprolol(XL)Succ [Toprol Xl (Beta Vanesa)] 50 mg PO DAILY 09/15/17 Nebulizer [Aeroneb Go Nebulizer] 1 ea MC 4X/DAY 09/15/17 Pantoprazole Sodium [Protonix] 40 mg PO DAILY 09/15/17 Tamsulosin HCl [Flomax] 0.4 mg PO DAILY@1730 09/15/17 hydrALAZINE [Apresoline] 25 mg PO TID 09/15/17 umeclidinium 62.5 mcg/actuation blister powder for inhalation 1 inh INHALATION QDAY #30 ea 04/22/18 Albuterol Inhaler [Ventolin Hfa] 1 - 2 puff INHALATION Q4H PRN PRN 05/12/18 Diazepam [Valium] 5 mg PO DAILY PRN 05/12/18 Sodium Bicarbonate 650 mg PO BID 05/12/18 Insulin Aspart [Novolog Flexpen] 5 units SC TIDCM #0 05/16/18 Insulin Degludec [Tresiba Flextouch U-100] 20 unit SC QHS #0 05/16/18 Primary Care Physician: Caesar Chavez DO [Primary Care Provider] - Please follow up with your Primary Care Physician in: in 5-7 days Test Results: Test results from this visit will be discussed in further detail at your follow- up appointment, if applicable. Please Follow Up With: Daysi Magana DO When: On 05/19/2018 for renal panel check Please Follow Up With: Enoch Dick MD When: 1-2 weeks for AV fistula placement assessment Proposed Discharge Date: 05/16/18
--- NOTE | 2018-05-16 08:28 | PCM.DC.SUM ---
Discharge Date and Diagnosis - Problem List Patient Problems: Active and Suspected Problems (Last Reviewed 04/21/18 @ 09:45 by Yaquelin Simpson) Gastroenteritis (Acute) NICK (acute kidney injury) (Acute) Date of Admission: 05/12/18 Date of Discharge: 05/16/18 - Primary Discharge Diagnosis Active and Suspected Problems (Last Reviewed 04/21/18 @ 09:45 by Yaquelin Simpson) Gastroenteritis (Acute) Severe sepsis (Acute) NICK (acute kidney injury) (Acute) - Secondary Discharge Diagnosis Chronic Problems (Last Reviewed 04/21/18 @ 09:45 by Yaquelin Simpson) CKD (chronic kidney disease) stage 4, GFR 15-29 ml/min (Chronic) Nicotine abuse (Chronic) Nicotine dependence, cigarettes, in remission (Chronic) Stage 3 severe COPD by GOLD classification (Chronic) FEV1 37% predicted Heme + stool (Chronic) Anemia of chronic renal failure (Chronic) H/O pneumonectomy (Chronic) Right due to benign tumor Peripheral vascular disease (Chronic) COPD (chronic obstructive pulmonary disease) (Chronic) Radiculopathy affecting upper extremity (Chronic) Iron deficiency anemia (Chronic) Increased PTH level (Chronic) Low vitamin D level (Chronic) Paroxysmal atrial fibrillation (Chronic) Chronic renal failure, stage 4 (severe) (Chronic) Nocturnal hypoxia (Chronic) Noncompliance with CPAP treatment (Chronic) LADARIUS (obstructive sleep apnea) (Chronic) Gout (Chronic) History of tobacco abuse (Chronic) quit in April 2017 Hx of CABG (Chronic) x3 2004 Coronary artery disease (Chronic) has had 3 stents.....the last stent he thinks in 2008 Hypertension (Chronic) Diabetes mellitus type 2 in obese (Chronic) Non-STEMI (non-ST elevated myocardial infarction) (Chronic) Hospital Course and Treatment Imaging Results: Clinical Impression(s) from Imaging Studies Abdomen/Pelvis CT 05/12/18 10:09 IMPRESSION: Status post subtotal colectomy. No acute abnormality is seen. Electronically Signed: Herbert Carroll, at 12:47 EST , Service support , Summary of Care Provided: Patient is a 62-year-old gentleman with past medical history significant chronic kidney disease stage IV, admitted with bloody watery diarrhea weeks duration. Patient was found to have acute kidney injury with hyperkalemia on admission admitted to the intensive care unit for subsequent management 1. Acute kidney injury from severe dehydration from patient watery diarrhea (workup remained negative to date) admitted to the intensive care unit where patient was fluid resuscitated with consultation placed to patient's [employer] administrator Dr. Ira Magana. Plan is for patient to follow-up with Dr. Magana as outpatient for subsequent care as well as Dr. Enoch Dick for evaluation for possible assessment of an AV fistula 2. Chronic diarrhea with In progress stool for Giardia pending 3. Chronic kidney disease stage IV patient presented with worsening kidney function as a result of acute kidney injury 4. History of colon cancer status post subtotal colectomy patient remains in remission 5. Diabetes mellitus type 2 did continue with patient's patient home regimen in addition to Accu-Cheks before meals and at bedtime with sliding scale coverage did adjust patient insulin regimen in view of his blood glucose being persistently low possibly as a result of his worsening kidney function. 6. CAD with previous CABG and subsequent stent placement 7. 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 COPD currently not in exacerbation 9. Obstructive sleep apnea patient has been noncompliant with CPAP 10. Paroxysmal atrial fibrillation 11. Dyslipidemia 12. Gout 13. BPH 14. DVT prophylaxis avoided the use of chemoprophylaxis in view of patient presenting with bloody diarrhea 15. Severe sepsis ruled out patient low blood pressure was from hypoperfusion. 16. Hypomagnesemia corrected per protocol 17. Hyperkalemia secondary to above patient did receive Kayexalate was on losartan held on admission. Hyperkalemia resolved patient was discharged home on renal diet Patient Problems: Active and Suspected Problems (Last Reviewed 04/21/18 @ 09:45 by Yaquelin Simpson) Gastroenteritis (Acute) NICK (acute kidney injury) (Acute) Objective: GENERAL: cooperative HEENT: Atraumatic; moist oral mucosa EYES; Anicteric, Normal Conjunctiva NECK; supple, normal thyroid, no distended JVD. RESPIRATORY: Diminished to auscultation bilaterally, CARDIOVASCULAR: Regular S1 S2, no audible murmurs GI: soft, non-tender, normoactive bowel sounds, : No Renal angle tenderness; EXTREMITIES: Edema involving upper extremities, MUSCULOSKELETAL: No Joint Tenderness; NEURO: Awake; no lateralizing signs. SKIN: Is dry with excoriations on lower extremities - Physical Exam Vital Signs Temp Pulse Resp BP Pulse Ox 97.8 F 85 16 140/84 H 98 05/16/18 07:31 05/16/18 07:31 05/16/18 07:31 05/16/18 07:31 05/16/18 07:31 Oxygen Delivery Method Room Air Weight: 100.9 kg Body Mass Index (BMI) 29.9 Intake and Output for Last 24 Hours 05/14/18 05/15/18 05/16/18 23:59 23:59 23:59 Intake Total 2030.8 / 2030.8 400 / 400 730 / 730 Output Total 1700 / 1700 2150 / 2150 Balance 330.8 / 330.8 -1750 / -1750 730 / 730 Microbiology Past 72 Hours 05/12/18 12:40 Enteric Bacteriology - Final Stool Laboratory Tests Past 24 Hrs 05/14/18 05/16/18 05/16/18 07:10 05:52 05:52 WBC 8.3 RBC 3.53 L Hgb 9.9 L Hct 30.8 L MCV 87.3 MCH 28.0 MCHC 32.1 RDW 15.1 H RDW Differential 48.3 H Plt Count 168 MPV 12.6 H Immature Gran % (Auto) 0.500 Neut % (Auto) 53.5 Lymph % (Auto) 20.3 [place] % (Auto) 7.9 Eos % (Auto) 17.6 H Baso % (Auto) 0.2 Absolute Neuts (auto) 4.5 Absolute Lymphs (auto) 1.69 Total Counted Not Reportable Diff Path Review Reviewed Sodium 144 Potassium 5.1 Chloride 115 H Carbon Dioxide 20.0 L Anion Gap 9 BUN 58 H Creatinine 3.02 H Estim Creat Clear Calc 27.48 Est GFR (MDRD) Af Amer 27 L Est GFR (MDRD) Non-Af 22 L BUN/Creatinine Ratio 19.2 Glucose 109 H Calcium 8.6 POC Glucose 05/16/18 05/15/18 05/15/18 07:27 21:36 16:58 POC Glucose 105 188 H 116 H 05/15/18 05/15/18 12:01 09:04 POC Glucose 177 H 93 Discharge Diet: 1800 Calorie Control Diet, Renal Diet Discharge Activity: May not drive while taking narcotic pain medications. Home Medications: Medications to take at Discharge Aspirin 81 mg PO DAILY 05/14/17 Nitroglycerin [Nitrostat] 0.4 mg SUBLINGUAL Q5M PRN 05/14/17 Oxycodone [Oxyir] 5 mg PO BID PRN PRN 05/14/17 Simvastatin 80 mg PO QHS 05/14/17 Oxygen, Home [Home Oxygen] 2 - 3 lpm NASAL UD #1 unit 05/18/17 Albuterol Aerosols [Ventolin Aerosols] 2.5 mg INHALATION Q4H PRN PRN 09/15/17 Allopurinol [Zyloprim] 300 mg PO DAILY 09/15/17 Cilostazol 50 mg PO BID 09/15/17 Colchicine 0.6 mg PO TID PRN 09/15/17 Ergocalciferol [Vitamin D] 50,000 unit PO Q7D 09/15/17 Finasteride [Proscar] 5 mg PO DAILY 09/15/17 Isosorbide Mononitrate [Imdur] 30 mg PO DAILY 09/15/17 Metoprolol(XL)Succ [Toprol Xl (Beta Vanesa)] 50 mg PO DAILY 09/15/17 Nebulizer [Aeroneb Go Nebulizer] 1 ea MC 4X/DAY 09/15/17 Pantoprazole Sodium [Protonix] 40 mg PO DAILY 09/15/17 Tamsulosin HCl [Flomax] 0.4 mg PO DAILY@1730 09/15/17 hydrALAZINE [Apresoline] 25 mg PO TID 09/15/17 umeclidinium 62.5 mcg/actuation blister powder for inhalation 1 inh INHALATION QDAY #30 ea 04/22/18 Albuterol Inhaler [Ventolin Hfa] 1 - 2 puff INHALATION Q4H PRN PRN 05/12/18 Diazepam [Valium] 5 mg PO DAILY PRN 05/12/18 Sodium Bicarbonate 650 mg PO BID 05/12/18 Insulin Aspart [Novolog Flexpen] 5 units SC TIDCM #0 05/16/18 Insulin Degludec [Tresiba Flextouch U-100] 20 unit SC QHS #0 05/16/18 Primary Care Physician: Caesar Chavez DO [Primary Care Provider] - Please follow up with your Primary Care Physician in: in 5-7 days Please Follow Up With: Daysi Magana DO When: On 05/19/2018 for renal panel check Please Follow Up With: Enoch Dick MD When: 1-2 weeks for AV fistula placement assessment Disposition: Home Minutes spent on discharge:: 35 Patient Condition:: Stable Medical Necessity - Tobacco Use Smoking Status: Current some day smoker Tobacco Use: Cigarettes Meaningful Use Info Meaningful Use Diagnoses (Choose all that apply): None applicable Code Visit Inpatient E&M: 40899 Disch Hosp
--- NOTE | 2018-05-18 16:06 | CASEMGMT ---
DEVEN SAAVEDRA Discharge Follow-up Phone Call: RAE: Dawood Strata: 4 Call Date: 05/18/18 Discharge Date: 05/16/18 Time of Call: 1600 Duration: 5 min Admitting Diagnosis: Hyperkalemia DEVEN SAAVEDRA completed follow-up phone call after recent hospitalization. Patient had no questions regarding discharge instructions. Patient states that he had if follow-up lab work today and has an appointment with Dr. Magana tomorrow. Reminded patient to schedule appt with PCP and doctor Mayelin. Patient voiced understanding and denied any further questions at this time.
== END 2018-05-16 11:47 | disposition home or self-care (01) | DRG 683 ==
LOC: ED 10:41 → ICU 13:43 → MS3 05-15 07:05
PROVIDERS: Internal Medicine Critical Care Medicine; Physician Assistant; Admitting Provider Family Medicine; Emergency Provider Emergency Medicine; Family Provider Family Medicine; PCP Family Medicine; Visit Provider Internal Medicine
DX: N17.9 Acute kidney failure, unspecified (principal); E87.2 Acidosis; E87.5 Hyperkalemia; E83.42 Hypomagnesemia; K52.9 Noninfective gastroenteritis and colitis, unspecified; E11.22 Type 2 diabetes mellitus with diabetic chronic kidney disease; J44.9 Chronic obstructive pulmonary disease, unspecified; E86.0 Dehydration; I48.0 Paroxysmal atrial fibrillation; I25.10 Atherosclerotic heart disease of native coronary artery without angina pectoris; I44.0 Atrioventricular block, first degree; I12.9 Hypertensive chronic kidney disease with stage 1 through stage 4 chronic kidney disease, or unspecified chronic kidney disease; E78.5 Hyperlipidemia, unspecified; N40.0 Benign prostatic hyperplasia without lower urinary tract symptoms; G47.33 Obstructive sleep apnea (adult) (pediatric); N18.4 Chronic kidney disease, stage 4 (severe); F17.211 Nicotine dependence, cigarettes, in remission; M10.9 Gout, unspecified; Z79.899 Other long term (current) drug therapy; Z90.2 Acquired absence of lung [part of]; Z95.5 Presence of coronary angioplasty implant and graft; Z95.1 Presence of aortocoronary bypass graft; Z79.4 Long term (current) use of insulin; Z85.038 Personal history of other malignant neoplasm of large intestine; Z90.49 Acquired absence of other specified parts of digestive tract; Z86.018 Personal history of other benign neoplasm
CPT/HCPCS: 36415; 36569; 74176; 80048; 81001; 82274; 82570; 82962; 83605; 83630; 83735; 84300; 85025; 85610; 85730; 87177; 87209; 87329; 87493; 87506; 87641; 93005; 94640; 99283; 99406; J7030; J7040; A4216; J0610

== ENCOUNTER → 2018-05-18 13:52 | Outpatient (CLI) | payer MEDICARE, SELFPAY ==
[2018-05-12 14:28] VITALS: BMI 29.9
[2018-05-18 15:58] LABS: Protein, Urine (Random) 94.1 mg/dL (<11.9); Protein:Creat Ratio 848 mg/g CRE (0-200)
[2018-05-18 16:01] LABS: Albumin, Serum 3.4 g/dL (3.2-5.0); BUN 52 mg/dL (7-18); BUN/Creat Ratio 17.9 RATIO (10-20); Chloride 113 mmol/L (98-107); Creatinine, Serum 2.91 mg/dL (0.70-1.30); EST Glomerular Filtration Rate 23 mL/min (>60); Est Glom Filt Rate - Afr Amer 28 mL/min (>60); Glucose 180 mg/dL (74-106); Phosphorus 2.8 mg/dL (2.5-4.9); Potassium 5.4 mmol/L (3.5-5.1); Sodium Level 143 mmol/L (136-145)
== END ==
PROVIDERS: Family Provider Family Medicine; PCP Family Medicine; Referring Provider Internal Medicine Nephrology; Visit Provider Internal Medicine Nephrology
DX: N17.9 Acute kidney failure, unspecified (principal)
CPT/HCPCS: 36415; 80069; 82570; 84156

== ENCOUNTER 2018-05-30 10:17 | Inpatient (IN) | payer MEDICARE, SELFPAY ==
[2018-05-12 14:28] VITALS: BMI 29.9
[2018-05-30] VITALS (32 sets, daily range): BP systolic 64–150; BP diastolic 51–132; PULSE 99–127; RESP 12–39; TEMP 36.1–36.4; O2SAT 79–100; BMI 28.9; BMI 28.8
--- NOTE | 2018-05-30 10:46 | RAD_ITS ---
STUDY: X-RAY CHEST REASON FOR EXAM: Male, 62 years old. Dyspnea, generalized illness TECHNIQUE: AP COMPARISON: 09/19/2017 FINDINGS: Hyperlucency of the right more than left upper lung field with particular densities compatible with fibrotic scarring, overall similar. There is pleural fibrotic scarring of the right costophrenic angle. Normal size heart. Prominent right cardiophrenic opacity likely represents epicardial fat. Normal mediastinum and elizabeth. Normal visualized pulmonary arteries. Normal visualized aortic arch and descending thoracic aorta. Normal visualized thoracic spine. There are old right rib fractures. Surgical sutures project over the right hilum suggesting prior surgery/lobectomy. There is no demonstrated abnormality of the visualized soft tissue structures of the upper abdomen. RAD/Chest 1 View (Portable) IMPRESSION: Stable, nonacute portable x-ray examination of the chest. Electronically Signed: Yves Lamb MD at 11:38 EDT , Service support ,
[2018-05-30] MEDS: 0.9% Normal Saline 1,000 ML 1000 ML IV (11:08)
[2018-05-30] MEDS: Ipratropium/Albuterol Sulfate 3 ML AMPUL.NEB INHALATION (11:17)
[2018-05-30] MEDS: proMETHazine 25 MG/ML Syringe 12.5 MG IV (11:22)
[2018-05-30 11:34] LABS: Absolute Lymphocyte Count 1.62 X10^3/ul (0.83-4.51); Absolute Neutrophil Count 17.4 X10^3/uL (2.0-7.7); Basophil# 0.02 X10^3/uL; Basophil% 0.1 % (0-1); Eosinophil# 1.19 X10^3/uL; Eosinophils% 5.7 % (0-5); Hematocrit 43.1 % (40-54); Hemoglobin 13.9 g/dl (13.0-16.5); Lymphocyte # 1.62 X10^3/ul (4.0); Lymphocyte % 7.7 % (19-41); Mean Corp Hgb Conc 32.3 g/gl (32-36); Mean Corpuscular Hgb 28.8 pg (27.0-32.0); Mean Corpuscular Volume 89.2 fL (80-94); Mean Platelet Vol. 12.7 fl (6.2-12.0); Monocyte# 0.75 X10^3/uL; Monocyte% 3.6 % (0-10); Neutrophil % 82.5 % (47-70); POSITIVE COUNT NO; POSITIVE DIFFERENTIAL NO; POSITIVE MORPHOLOGY NO; Platelet Count 347 K/mm3 (150-450); RBC Distribution Width SD 51.5 fl (35.1-43.9); Red Blood Count 4.83 M/mm3 (4.6-6.2); White Blood Count 21.1 K/mm3 (4.4-11.0)
[2018-05-30 12:00] LABS: ALB/GLOB Ratio 0.9 RATIO (0.9-2.4); AST(SGOT) 16 U/L (15-37); Alanine Aminotransfer ALT/SGPT 30 U/L (16-61); Albumin, Serum 4.5 g/dL (3.2-5.0); Alkaline Phosphatase 196 U/L (45-117); Anion Gap 12 (5-15); BUN 94 mg/dL (7-18); BUN/Creat Ratio 12.2 RATIO (10-20); Calcium,Total 10.3 mg/dL (8.5-10.1); Chloride 110 mmol/L (98-107); Creatinine, Serum 7.68 mg/dL (0.70-1.30); EST Glomerular Filtration Rate 8 mL/min (>60); Est Glom Filt Rate - Afr Amer 9 mL/min (>60); Estimated Creatinine Clearance 10.81 ml/min; Globulin 4.9 g/dL (2.2-4.2); Glucose 178 mg/dL (74-106); Lactic Acid 2.6 mmol/L (0.4-2.0); Lipase 264 U/L (73-393); Potassium 7.2 mmol/L (3.5-5.1); Protein, Total 9.4 g/dL (6.4-8.2); Sodium Level 133 mmol/L (136-145)
--- NOTE | 2018-05-30 12:00 | EKG12_ITS ---
Test Reason : SOB Blood Pressure : / mmHG Vent. Rate : 103 BPM Atrial Rate : 103 BPM P-R Int : 218 ms QRS Dur : 080 ms QT Int : 304 ms P-R-T Axes : 070 094 064 degrees QTc Int : 398 ms Sinus tachycardia with 1st degree A-V block Rightward axis Borderline ECG Confirmed by HARSH ASIF, SARA ([id number]), book or script editor AVE TOMPKINS ([id number] on 06/01/2018 4:16:12 PM Referred By: John Marcum Confirmed By:SARA HOUSE MD
--- NOTE | 2018-05-30 12:00 | ED.RN ---
POTASSIUM 7.2 CREAT 7.68 AND LACTIC 2.6 [address] FROM THE LAB DR NELSON AWARE
--- NOTE | 2018-05-30 12:06 | ED.VISSUMM ---
- ER Visit Summary Date of Service: 05/30/18 Chief Complaint: Vomiting, diarrhea] History of Present Illness: The patient is a 62 M [presents the emergency department complaint of vomiting and diarrhea for last 3 days. Patient states that currently no abdominal discomfort at this time but had some pain yesterday and cramping. He has had decreased p.o. intake. Noticed some intermittent bright red blood per rectum but he felt that was related to all the irritation in his rectum from having so many watery stools to the point where he is having a hard time sitting secondary to discomfort. Patient has been feeling a little more short of breath and just has no energy. Patient is on home oxygen as needed. He has a history of coronary artery disease, COPD, diabetes, hypertension, chronic kidney disease, A. fib, and obstructive sleep apnea. Patient has had prior three-vessel CABG. He denies any recent antibiotic usage. Denies recent travel.] Physical Examination: [HEENT-PERRLA, EOMI. Cranial nerves II through XII grossly intact. TMs clear. Mucous membranes dry. No adenopathy. Cardiovascular-regular rate and rhythm without murmur or ectopy Lungs-clear to auscultation, chest wall stable without crepitus or subcu emphysema Abdomen-hyperactive bowel sounds. Mild diffuse tenderness. There is no rebound, rigidity, or perineal signs. Extremities-intact ?4, normal range of motion, normal pulses, atraumatic] Test Results: [CBC with differential and 21,000, hemoglobin 14, hematocrit 43, platelets 347. Chemistry showed a sodium of 133, potassium 7.2, chloride 110, CO2 11, BUN 94, creatinine 7.68, glucose 170. Lactate was 2.6. Chest x-ray showed nothing acute.] Emergency Department Course and Treatment: [Patient initially received a liter normal same fluid bolus as well as Phenergan 12.5 mg IV. Patient was ordered calcium chloride, sodium bicarb, insulin and dextrose, and Kayexalate.] Treatment Plan: [Admit] Disposition: [Admit] Impression: [Gastroenteritis-suspect viral Renal failure Hyperkalemia Dehydration] This note was generated with [employer] dictation software. It may contain incorrect words, spelling, and punctuation that were not noted in review of the chart prior to signing ED Disposition - Plan for ED Patient: Referrals: Caesar Chavez DO [Primary Care Provider] -
[2018-05-30] MEDS: Sodium Bicarbonate 8.4% 50 ML Syringe 50 MEQ IV ×3 (12:11→21:26)
[2018-05-30] MEDS: Dextrose 50%-Water 25 GM/50 ML DISP.SYRIN IV (12:11)
[2018-05-30] MEDS: Calcium Chloride 1 GM/10 ML Syringe IV (12:11)
[2018-05-30] MEDS: Sodium Polystyrene Sulfonate 15 GM/60 ML UDC 30 GM PO ×2 (12:53→18:24)
[2018-05-30] MEDS: 0.9% Normal Saline 1,000 ML 999 ML IV (13:34)
--- NOTE | 2018-05-30 15:05 | HP.PCM_ITS ---
Problem List (1) Gastroenteritis Status: Acute (2) CKD (chronic kidney disease) stage 4, GFR 15-29 ml/min Status: Chronic (3) Nicotine dependence, cigarettes, in remission Status: Chronic (4) Stage 3 severe COPD by GOLD classification Status: Chronic Comment: FEV1 37% predicted (5) Heme + stool Status: Chronic (6) Hyperkalemia Status: Acute (7) Anemia of chronic renal failure Status: Chronic Qualifiers: Chronic kidney disease stage: stage 4 (severe) Qualified Code(s): N18.4 - Chronic kidney disease, stage 4 (severe); D63.1 - Anemia in chronic kidney disease (8) H/O pneumonectomy Status: Chronic Comment: Right LL lobectomy due to benign tumor (9) Peripheral vascular disease Status: Chronic (10) Acute renal failure superimposed on stage 4 chronic kidney disease Status: Acute (11) Radiculopathy affecting upper extremity Status: Chronic (12) Iron deficiency anemia Status: Chronic (13) Increased PTH level Status: Chronic Comment: secondary to CRF stage4 (14) Metabolic acidosis Status: Acute (15) Low vitamin D level Status: Chronic (16) Paroxysmal atrial fibrillation Status: Chronic (17) Nocturnal hypoxia Status: Chronic (18) Noncompliance with CPAP treatment Status: Chronic (19) LADARIUS (obstructive sleep apnea) Status: Chronic (20) Gout Status: Chronic (21) History of tobacco abuse Status: Chronic Comment: quit in April 2017 (22) Hx of CABG Status: Chronic Comment: x3 2003 (23) Coronary artery disease Status: Chronic Comment: has had 3 stents.....the last stent he thinks in 2008 (24) Hypertension Status: Chronic (25) Diabetes mellitus type 2 in obese Status: Chronic (26) Chronic hypoxemic respiratory failure Status: Chronic Comment: 2-3 LPM chronically (27) Colon cancer Status: Chronic Comment: had surgery with no chemo or radiation at [facility] fall (28) Status post colon resection Status: Chronic Comment: subtotal for colon CA in the fall at [facility] (29) Hemorrhoids Status: Chronic History of Present Illness Date of Admission: 05/30/18 Chief Complaint: diarrhea/nausea/vomiting The patient is a 62 year old M with a past medical history of chronic hypoxic respiratory failure on 2-3 L/min of nasal O2 chronically, colon cancer with subtotal colectomy in the fall 2017, chronic renal failure stage IV, tobacco dependence in remission, stage III severe COPD, anemia of chronic renal failure, history of right lower lobe lobectomy secondary to benign tumor, peripheral vascular disease, paroxysmal atrial fibrillation, LADARIUS, gout, history of CABG, history of PCI, hypertension and diabetes mellitus type 2 who presented to the emergency department at [facility] on 05/30/2018 complaining of nausea/vomiting/diarrhea. He stated the symptoms have been present for the past 72 hours and he is moving his bowels every 15 minutes. He denies fevers and chills. The stool is liquid and brown and he states he is vomiting something that looks similar. He does not have hematemesis. He does have some bright red blood on the toilet paper when he wipes his behind. He has no sick contacts. He has not recently been on antibiotics. Vital signs of presentation to the emergency room were temperature 97 ?F, pulse rate 108, blood pressure 122/83, respiratory rate 18 and he was 79% saturated on room air however he chronically wears 2-3 L of nasal O2 and the pulse ox on 2 L was 100%. Chest x-ray showed no infiltrates, pleural effusions or pulmonary vascular congestion. Blood cell count is elevated at 21.1 with 82% neutrophils. Hemoglobin is 13.9 (his baseline is usually in the nines). Platelets are within normal limits. The sodium was low at 133 and the potassium is 7.2. Serum bicarb is 11 with a normal anion gap of 12. The BUN is 94 and the creatinine is 7.69 up from 2.91 on 05/18/2018. He is being admitted to the ICU with gastroenteritis, acute on chronic renal failure and hyperkalemia. Kayexalate was given in the emergency room as well as fluid boluses. Past Medical History Past Medical History (Chronic Problems): Chronic Problems (Last Reviewed 04/21/18 @ 09:45 by Yaquelin Simpson) Chronic hypoxemic respiratory failure (Chronic) 2-3 LPM chronically Colon cancer (Chronic) had surgery with no chemo or radiation at [facility] fall Status post colon resection (Chronic) subtotal for colon CA in the fall at [facility] Hemorrhoids (Chronic) CKD (chronic kidney disease) stage 4, GFR 15-29 ml/min (Chronic) Nicotine dependence, cigarettes, in remission (Chronic) Stage 3 severe COPD by GOLD classification (Chronic) FEV1 37% predicted Heme + stool (Chronic) Anemia of chronic renal failure (Chronic) H/O pneumonectomy (Chronic) Right LL lobectomy due to benign tumor Peripheral vascular disease (Chronic) Radiculopathy affecting upper extremity (Chronic) Iron deficiency anemia (Chronic) Increased PTH level (Chronic) secondary to CRF stage4 Low vitamin D level (Chronic) Paroxysmal atrial fibrillation (Chronic) Nocturnal hypoxia (Chronic) Noncompliance with CPAP treatment (Chronic) LADARIUS (obstructive sleep apnea) (Chronic) Gout (Chronic) History of tobacco abuse (Chronic) quit in April 2017 Hx of CABG (Chronic) x3 2004 Coronary artery disease (Chronic) has had 3 stents.....the last stent he thinks in 2008 Hypertension (Chronic) Diabetes mellitus type 2 in obese (Chronic) Medical History: Medical History (Last Reviewed 04/21/18 @ 09:45 by Yaquelin Simpson) Nicotine dependence, cigarettes, in remission (Chronic) F17.211 Heme + stool (Chronic) R19.5 Acute renal failure superimposed on stage 4 chronic kidney disease (Acute) N17.9, N18.4 Radiculopathy affecting upper extremity (Chronic) M54.10 Iron deficiency anemia (Chronic) D50.9 Increased PTH level (Chronic) E34.9 secondary to CRF stage4 Metabolic acidosis (Acute) E87.2 Low vitamin D level (Chronic) E55.9 Paroxysmal atrial fibrillation (Chronic) I48.0 Nocturnal hypoxia (Chronic) G47.34 Noncompliance with CPAP treatment (Chronic) Z91.14 LADARIUS (obstructive sleep apnea) (Chronic) G47.33 Gout (Chronic) M10.9 History of tobacco abuse (Chronic) Z87.891 quit in April 2017 Coronary artery disease (Chronic) I25.10 has had 3 stents.....the last stent he thinks in 2008 Hypertension (Chronic) I10 Diabetes mellitus type 2 in obese (Chronic) E11.69, E66.9 Colon cancer C18.9 Acute exacerbation of chronic obstructive pulmonary disease (COPD) (Resolved) J44.1 Acute respiratory failure with hypoxemia (Resolved) J96.01 Influenza B (Resolved) J10.1 Lower GI bleed (Resolved) K92.2 Severe sepsis (Resolved) A41.9, R65.20 Streptococcal pneumonia (Resolved) J15.4 Urinary retention due to benign prostatic hyperplasia (Resolved) N40.1, R33.8 NSAID long-term use (Inactive) Z79.1 Non-STEMI (non-ST elevated myocardial infarction) (Inactive) I21.4 Allergies No Known Allergies Allergy (Verified 05/30/18 10:18) Home Medications: Ambulatory Orders Medication Instructions Recorded Aspirin 81 mg PO DAILY 05/14/17 Nitroglycerin [Nitrostat] 0.4 mg SUBLINGUAL Q5M PRN 05/14/17 Oxycodone [Oxyir] 5 mg PO BID PRN PRN 05/14/17 Simvastatin 80 mg PO QHS 05/14/17 Oxygen, Home [Home Oxygen] 2 - 3 lpm NASAL UD #1 unit 05/18/17 Albuterol Aerosols [Ventolin 2.5 mg INHALATION Q4H PRN PRN 09/15/17 Aerosols] Allopurinol [Zyloprim] 300 mg PO DAILY 09/15/17 Cilostazol 50 mg PO BID 09/15/17 Colchicine 0.6 mg PO TID PRN 09/15/17 Ergocalciferol [Vitamin D] 50,000 unit PO Q7D 09/15/17 Finasteride [Proscar] 5 mg PO DAILY 09/15/17 Isosorbide Mononitrate [Imdur] 30 mg PO DAILY 09/15/17 Metoprolol(XL)Succ [Toprol Xl 50 mg PO DAILY 09/15/17 (Beta Vanesa)] Nebulizer [Aeroneb Go Nebulizer] 1 ea MC 4X/DAY 09/15/17 Pantoprazole Sodium [Protonix] 40 mg PO DAILY 09/15/17 Tamsulosin HCl [Flomax] 0.4 mg PO DAILY@1730 09/15/17 hydrALAZINE [Apresoline] 25 mg PO TID 09/15/17 umeclidinium 62.5 mcg/actuation 1 inh INHALATION QDAY #30 ea 04/22/18 blister powder for inhalation Albuterol Inhaler [Ventolin Hfa] 1 - 2 puff INHALATION Q4H PRN PRN 05/12/18 Diazepam [Valium] 5 mg PO DAILY PRN 05/12/18 Sodium Bicarbonate 650 mg PO BID 05/12/18 Insulin Aspart [Novolog Flexpen] 5 units SC TIDCM #0 05/16/18 Insulin Degludec [Tresiba 20 unit SC QHS #0 05/16/18 Flextouch U-100] Surgical History: Surgical History (Last Updated 04/21/18 @ 09:51 by Yaquelin Simpson) Hx of CABG (Chronic) Z95.1 x3 2003 H/O colectomy Z90.49 3/4 of colon, 12/2017, Dr. Alvarado with [facility] S/P removal of lung Z90.2 3/4 of right lung was removed by Dr. Todd in [facility] 11/2009 Surgical History: angioplasty - stent x2 2003, - - rt lung thoracotomy, lobecto my 2009 for benign tumor Smoking Status: Current some day smoker - *Family History Maternal Family History: Family History (Last Reviewed 04/21/18 @ 09:45 by Yaquelin Simpson) Father Leukemia Mother COPD (chronic obstructive pulmonary disease) History Items: COPD Paternal Family History: Family History (Last Reviewed 04/21/18 @ 09:45 by Yaquelin Simpson) Father Leukemia Mother COPD (chronic obstructive pulmonary disease) History Items: Cancer - leukemia, Hypertension Review of Systems Constitutional: Reports: Anorexia, Weakness. Denies: Chills, Fever, Weight Change Eyes: Denies: Blurred vision HEENT: Denies: Head Aches, Sinus Congestion, Sinus Drainage Cardiovascular: Denies: Chest Pain, Palpitations Respiratory: Denies: Cough, Shortness of breath at rest, Sputum production Gastrointestinal: Reports: Diarrhea, Hematochezia, Nausea, Vomiting. Denies: Abdominal Pain, Hematemesis Genitourinary: Denies: Dysuria Musculoskeletal: Denies: Joint Pain, Joint Tenderness Skin: Denies: Jaundice, Rash, Wounds Neurological: Denies: Focal weakness, Numbness, Tingling, Tremor, Seizures Psychiatric: Denies: Anxiety, Depression, Homicidal Ideations, Suicidal Ideatio ns Endocrine: Denies: Hx of Thyroiditis Hematologic/ Lymphatic: Denies: Easy Bruising, Easy Bleeding, Hx of blood clot VTE Information - Inpt Only VTE Present on Admission: No VTE Mechan Device Prophylaxis: SCD's, Knee High MARLENY Hose VTE Pharm Prophylaxis ordered?: Yes - Physical Exam General: Alert, Oriented x3, Cooperative, - - looks fatigued HEENT: Atraumatic, PERRLA, EOMI, Normocephalic Oral: No Gingival or Mucosal Lesions/ Ulcerations, Dry Mucosa Neck: Supple, No JVD, Negative Carotid Bruits, No Nodes, Trachea Midline Lungs: Clear to auscultation, Normal air movement, Diminished Cardiovascular: Regular Rhythm, Normal S1, Normal S2, No murmurs, No rub noted, No Gallop, Tachycardic Abdomen: Bowel Sounds Present, Soft, Non Tender, Non-Distended Extremities: No edema, Capillary Refill Less than 3 Seconds Skin: No rashes, No breakdown, - - Dry Musculoskeletal: No Tenderness to Palpation of Joints or Extremities, No Muscle Wasting Neurological: Cranial nerves II-XII grossly intact, Neuro grossly intact, - - No focal neurologic deficits Psych/Mental Status: Normal Affect, Appropriate Vital Signs Temp Pulse Resp BP Pulse Ox 97.5 F L 105 H 20 H 102/63 100 05/30/18 12:37 05/30/18 12:37 05/30/18 12:32 05/30/18 12:37 05/30/18 12:32 Oxygen Flow Rate (L/min) 2 Oxygen Delivery Method Nasal Cannula Weight: 212 lb 4.882 oz Body Mass Index (BMI) 28.8 Laboratory Tests Past 24 Hrs 05/30/18 05/30/18 05/30/18 11:10 11:10 11:10 WBC 21.1 H RBC 4.83 Hgb 13.9 Hct 43.1 MCV 89.2 MCH 28.8 MCHC 32.3 RDW 16.0 H RDW Differential 51.5 H Plt Count 347 MPV 12.7 H Immature Gran % (Auto) 0.400 Neut % (Auto) 82.5 H Lymph % (Auto) 7.7 L [place] % (Auto) 3.6 Eos % (Auto) 5.7 H Baso % (Auto) 0.1 Absolute Neuts (auto) 17.4 H Absolute Lymphs (auto) 1.62 Total Counted Not Reportable Sodium 133 L Potassium 7.2 H* Chloride 110 H Carbon Dioxide 11.0 L Anion Gap 12 BUN 94 H Creatinine 7.68 H* Estim Creat Clear Calc 10.81 Est GFR (MDRD) Af Amer 9 L Est GFR (MDRD) Non-Af 8 L BUN/Creatinine Ratio 12.2 Glucose 178 H Lactic Acid 2.6 H Calcium 10.3 H Total Bilirubin 0.30 AST 16 ALT 30 Alkaline Phosphatase 196 H Total Protein 9.4 H Albumin 4.5 Globulin 4.9 H Albumin/Globulin Ratio 0.9 Lipase 264 Assessment/Plan All Active Problems (Last Reviewed 04/21/18 @ 09:45 by Yaquelin Simpson) Gastroenteritis (Acute) NICK (acute kidney injury) (Acute) Hyperkalemia (Acute) Acute renal failure superimposed on stage 4 chronic kidney disease (Acute) Metabolic acidosis (Acute) Acute exacerbation of chronic obstructive pulmonary disease (COPD) (Resolved) Acute respiratory failure with hypoxemia (Resolved) Benign neoplasm of right lung (Resolved) Influenza B (Resolved) Lower GI bleed (Resolved) Severe sepsis (Resolved) Streptococcal pneumonia (Resolved) Urinary retention due to benign prostatic hyperplasia (Resolved) Impressions 1. Acute renal failure on chronic renal failure stage IV 2. Severe dehydration 3. Hyperkalemia 4. Gastroenteritis-recent workup for the same symptoms in late April was negative. 5. Diabetes mellitus type 2 6. Hypertension 7. Hyperlipidemia 8. Coronary artery disease with history of CABG and PCI 9. Stage III severe COPD 9. Chronic respiratory failure with hypoxemia 10. Anemia of chronic renal failure and iron deficiency 11. History of right lower lobe lobectomy for a benign tumor 12. Peripheral vascular disease 13. Vitamin D deficiency 14. Obstructive sleep apnea 15. Gout 16. Colon cancer with subtotal colectomy at the [facility] in the fall 2017 17. Hematochezia secondary to hemorrhoidal disease 18. BP Admit to the intensive care unit Start a bicarb drip at 150 cc/h Consult Dr. Daysi Magana to participate in care Recheck lab at 1800 Recheck lab in the a.m. Repeat enteric pathogen panel, C. difficile, ova and parasites even though they were recently negative......if negative again the the sx persist will need endoscopy
[2018-05-30 15:22] LABS: Reflex Lactate? Y
[2018-05-30 17:18] LABS: Anion Gap 7 (5-15); BUN 96 mg/dL (7-18); BUN/Creat Ratio 12.9 RATIO (10-20); Calcium,Total 9.3 mg/dL (8.5-10.1); Chloride 112 mmol/L (98-107); Creatinine, Serum 7.42 mg/dL (0.70-1.30); EST Glomerular Filtration Rate 8 mL/min (>60); Est Glom Filt Rate - Afr Amer 10 mL/min (>60); Estimated Creatinine Clearance 11.18 ml/min; Glucose 250 mg/dL (74-106); Magnesium 1.7 mg/dL (1.6-2.6); Phosphorus 5.8 mg/dL (2.5-4.9); Potassium 7.4 mmol/L (3.5-5.1); Sodium Level 132 mmol/L (136-145)
--- NOTE | 2018-05-30 18:14 | NURSING ---
ACCIDENTALLY CHARTED ON OUTCOMES OF WRONG PATIENT
[2018-05-30] MEDS: Tamsulosin HCl 0.4 MG Capsule PO (18:25)
[2018-05-30] MEDS: Loperamide 2 MG Capsule PO (18:25)
[2018-05-30] MEDS: Albuterol 2.5 MG/3 ML VIAL.NEB. INHALATION (19:02)
[2018-05-30] MEDS: Budesonide Respules 0.5 MG/2 ML AMPUL.NEB. INHALATION (19:03)
--- NOTE | 2018-05-30 20:29 | PCM.CONS.R ---
Consultation - Renal 05/30/18 PCP/ Referring MD: Requesting physician: Alena Marcum Primary care physician: Caesar Chavez Reason for Consultation:: Acute on CKD stage 4, hyperkalemia - History of Present Illness History of Present Illness: The patient is a 62 year old M with CKD stage 4 due to diabetes, CAD s/p CABG, PCI, HTN, DM2, COPD, PAD, colon cancer with subtotal colectomy in the fall 2017, paroxysmal atrial fibrillation, LADARIUS, gout presented to the emergency department at [facility] on 05/30/2018 with complaints of nausea/vomiting/diarrhea past 3 days. He complains of watery stools every 15 minutes with mild abdominal pain. He denied fever,chills. Denies hematemesis, melena, but had bright red blood on the toilet paper with wiping. He was found to be in NICK with hyperkalemia. He was hospitalized for same complaints in April and positive for influenza. His potassium and renal fxn improved without requiring hemodialysis. Cdiff was positive with current admission. He complained of lightheadedness, weakness, numbness in his hands at home, improved now. He denies syncope, fall at home. He states he has been following a low K diet. He states he received a new prescription from pharmacy but could not recall name of medication. Chest x-ray showed no infiltrates.Lab on admit showed sodium 133, potassium is 7.2. Serum bicarb is 11 with a normal anion gap of 12. The BUN is 94 and the creatinine is 7.69 up from 2.91 on 05/18/2018. WBC elevated at 21K, hgb 13.9g. He is admitted to the ICU with cdiff colitis, acute on chronic renal failure and hyperkalemia, dehydration. He received fluid boluses for hypotension and medically managed for hyperkalemia. Repeat K tonight was 6.5. Urine output not measured due to continued diarrhea. - Allergies Allergies: Allergies No Known Allergies Allergy (Verified 05/30/18 10:18) - Current Medications Current Medications: Current Medications Acetaminophen (Tylenol) 650 mg PO Q4H PRN PRN PRN Reason: PAIN Albuterol Sulfate (Ventolin Aerosols) 2.5 mg INHALATION Q4HWA.RT ZACH Last Admin: 05/30/18 19:02 Dose: 2.5 mg Allopurinol (Zyloprim) 300 mg PO DAILY [facility] Aspirin (Aspirin, Baby) 81 mg PO DAILY [facility] Atorvastatin Calcium (Lipitor) 40 mg PO QHS [facility] Budesonide (Pulmicort Aerosol) 0.5 mg INHALATION BID.RT [facility] Last Admin: 05/30/18 19:03 Dose: 0.5 mg Cilostazol (Pletal) 50 mg PO BID [facility] Colchicine (Colchicine) 0.6 mg PO TID PRN PRN PRN Reason: GOUT Diazepam (Valium) 5 mg PO DAILY PRN PRN Reason: ANXIETY Ergocalciferol (Vitamin D) 50,000 unit PO Q14D [facility] Finasteride (Proscar) 5 mg PO DAILY [facility] Heparin Sodium (Porcine) (Heparin Na) 5,000 unit SC Q8 [facility] Hydrocortisone Acetate (Anusol Hc) 25 mg RECTAL BID [facility] Sodium Chloride () 250 mls @ 15 mls/hr IV .[id number] PRN PRN Reason: SALINE FLUSH Sodium Bicarbonate 150 meq/ (Dextrose) 1,150 mls @ 150 mls/hr IV .[id number] [facility] Last Admin: 05/30/18 15:29 Dose: 150 mls/hr Pantoprazole Sodium 40 mg/ (Sodium Chloride) 110 mls @ 330 mls/hr IV Q24 [facility] Metronidazole (Flagyl) 500 mg in 100 mls @ 100 mls/hr IV Q8 [facility] Isosorbide Mononitrate (Imdur) 30 mg PO DAILY [facility] Morphine Sulfate () 2 mg IV Q4H PRN PRN PRN Reason: SEVERE PAIN (6-10/10) Nitroglycerin (Nitrostat) 0.4 mg SUBLINGUAL Q5M PRN PRN Reason: Chest Pain Oxycodone HCl (Oxyir) 5 mg PO Q6H PRN PRN Reason: PAIN Sodium Chloride () 5 - 15 ml IV UD PRN PRN Reason: SALINE FLUSH Tamsulosin HCl (Flomax) 0.4 mg PO DAILY@1730 [facility] Last Admin: 05/30/18 18:25 Dose: 0.4 mg Vancomycin HCl () 125 mg PO Q6 [facility] - Past Medical History Past Medical History (Chronic Problems): Chronic Problems (Last Reviewed 04/21/18 @ 09:45 by Yaquelin Simpson) Chronic hypoxemic respiratory failure (Chronic) 2-3 LPM chronically Colon cancer (Chronic) had surgery with no chemo or radiation at [facility] fall Status post colon resection (Chronic) subtotal for colon CA in the fall at [facility] Hemorrhoids (Chronic) CKD (chronic kidney disease) stage 4, GFR 15-29 ml/min (Chronic) Nicotine dependence, cigarettes, in remission (Chronic) Stage 3 severe COPD by GOLD classification (Chronic) FEV1 37% predicted Heme + stool (Chronic) Anemia of chronic renal failure (Chronic) H/O pneumonectomy (Chronic) Right LL lobectomy due to benign tumor Peripheral vascular disease (Chronic) Radiculopathy affecting upper extremity (Chronic) Iron deficiency anemia (Chronic) Increased PTH level (Chronic) secondary to CRF stage4 Low vitamin D level (Chronic) Paroxysmal atrial fibrillation (Chronic) Nocturnal hypoxia (Chronic) Noncompliance with CPAP treatment (Chronic) LADARIUS (obstructive sleep apnea) (Chronic) Gout (Chronic) History of tobacco abuse (Chronic) quit in April 2017 Hx of CABG (Chronic) x3 2003 Coronary artery disease (Chronic) has had 3 stents.....the last stent he thinks in 2008 Hypertension (Chronic) Diabetes mellitus type 2 in obese (Chronic) - Past Surgical History Surgical History: angioplasty - stent x2 2003, - - rt lung thoracotomy, lobectomy 2009 for benign tumor - Social History Smoking Status: Current some day smoker - Family History Maternal Family History: Family History (Last Reviewed 04/21/18 @ 09:45 by Yaquelin Simpson) Father Leukemia Mother COPD (chronic obstructive pulmonary disease) History Items: COPD Paternal Family History: Family History (Last Reviewed 04/21/18 @ 09:45 by Yaquelin Simpson) Father Leukemia Mother COPD (chronic obstructive pulmonary disease) History Items: Cancer - leukemia, Hypertension Review of Systems Constitutional: Reports: Weakness. Denies: Anorexia, Chills, Fever HEENT: Denies: Head Aches Cardiovascular: Reports: Light Headedness. Denies: Chest Pain, Edema, Syncope Respiratory: Denies: Cough, Shortness of Breath Gastrointestinal: Reports: Abdominal Pain - mild, Diarrhea - every 15min, Nausea, Vomiting. Denies: Hematemesis, Hematochezia, Melena Genitourinary: Reports: -. Denies: Dysuria, Hematuria, Incontinence Musculoskeletal: Reports: - - no swelling Skin: Denies: Rash Neurological: Reports: Tingling, Tremor. Denies: Seizures Psychiatric: Denies: Anxiety, Depression Hematologic/ Lymphatic: Reports: Anemia Patient Problems: Active and Suspected Problems (Last Reviewed 04/21/18 @ 09:45 by Yaquelin Simpson) Clostridium difficile colitis (Acute) - Physical Exam General: Alert, Oriented x3, Cooperative, No apparent distress HEENT: PERRLA, EOMI Oral: Dry Mucosa Neck: Supple Lungs: Clear to auscultation Cardiovascular: No rub noted, Tachycardic Abdomen: Bowel Sounds Present, Soft, Distended - mild, Tender - minimal Skin: No rashes Musculoskeletal: No Muscle Wasting Neurological: Cranial nerves II-XII grossly intact, - - mild tremor Psych/Mental Status: Normal Affect, Appropriate, Alert and oriented to time, place, person, mood and affect Vital Signs Temp Pulse Resp BP Pulse Ox 97 F L 119 H 20 H 86/69 L 97 05/30/18 16:00 05/30/18 19:05 05/30/18 19:05 05/30/18 19:00 05/30/18 19:00 Oxygen Flow Rate (L/min) 2 Oxygen Delivery Method Nasal Cannula Weight: 96.3 kg Body Mass Index (BMI) 28.8 Intake and Output for Last 24 Hours 05/28/18 05/29/18 05/30/18 23:59 23:59 23:59 Intake Total 1000 / 1000 Balance 1000 / 1000 Microbiology Past 72 Hours 05/30/18 16:30 C. difficile DNA Amplification - Final Stool Toxigenic C. difficile DNA Laboratory Tests Past 24 Hrs 05/30/18 05/30/18 05/30/18 11:10 11:10 11:10 WBC 21.1 H RBC 4.83 Hgb 13.9 Hct 43.1 MCV 89.2 MCH 28.8 MCHC 32.3 RDW 16.0 H RDW Differential 51.5 H Plt Count 347 MPV 12.7 H Immature Gran % (Auto) 0.400 Neut % (Auto) 82.5 H Lymph % (Auto) 7.7 L [place] % (Auto) 3.6 Eos % (Auto) 5.7 H Baso % (Auto) 0.1 Absolute Neuts (auto) 17.4 H Absolute Lymphs (auto) 1.62 Total Counted Not Reportable Sodium 133 L Potassium 7.2 H* Chloride 110 H Carbon Dioxide 11.0 L Anion Gap 12 BUN 94 H Creatinine 7.68 H* Estim Creat Clear Calc 10.81 Est GFR (MDRD) Af Amer 9 L Est GFR (MDRD) Non-Af 8 L BUN/Creatinine Ratio 12.2 Glucose 178 H Lactic Acid 2.6 H Calcium 10.3 H Phosphorus Magnesium Total Bilirubin 0.30 AST 16 ALT 30 Alkaline Phosphatase 196 H Total Protein 9.4 H Albumin 4.5 Globulin 4.9 H Albumin/Globulin Ratio 0.9 Lipase 264 05/30/18 05/30/18 16:45 20:10 WBC RBC Hgb Hct MCV MCH MCHC RDW RDW Differential Plt Count MPV Immature Gran % (Auto) Neut % (Auto) Lymph % (Auto) [place] % (Auto) Eos % (Auto) Baso % (Auto) Absolute Neuts (auto) Absolute Lymphs (auto) Total Counted Sodium 132 L Pending Potassium 7.4 H* Pending Chloride 112 H Pending Carbon Dioxide 13.0 L Pending Anion Gap 7 Pending BUN 96 H Pending Creatinine 7.42 H* Pending Estim Creat Clear Calc 11.18 Est GFR (MDRD) Af Amer 10 L Pending Est GFR (MDRD) Non-Af 8 L Pending BUN/Creatinine Ratio 12.9 Pending Glucose 250 H Pending Lactic Acid Calcium 9.3 Pending Phosphorus 5.8 H Magnesium 1.7 Total Bilirubin AST ALT Alkaline Phosphatase Total Protein Albumin Globulin Albumin/Globulin Ratio Lipase Clinical Impression(s) from Imaging Studies Chest X-Ray 05/30/18 10:46 IMPRESSION: Stable, nonacute portable x-ray examination of the chest. Electronically Signed: Yves Lamb MD at 11:38 EDT , Service support , Assessment/Plan All Active Problems (Last Reviewed 04/21/18 @ 09:45 by Yaquelin Simpson) Clostridium difficile colitis (Acute) Gastroenteritis (Acute) NICK (acute kidney injury) (Acute) Hyperkalemia (Acute) Acute renal failure superimposed on stage 4 chronic kidney disease (Acute) Metabolic acidosis (Acute) Acute exacerbation of chronic obstructive pulmonary disease (COPD) (Resolved) Acute respiratory failure with hypoxemia (Resolved) Benign neoplasm of right lung (Resolved) Influenza B (Resolved) Lower GI bleed (Resolved) Severe sepsis (Resolved) Streptococcal pneumonia (Resolved) Urinary retention due to benign prostatic hyperplasia (Resolved) 1. NICK on CKD stage 4 due to gastroenteritis, dehydration, cdiff colitis. Creatinine baseline 2.5 now at 7.68 to 7.4 with aggressive hydration. Check UA, SEAN, UCr. Continue with aggressive hydration. Hoff to CD for accurate I/O's. Will hold on hemodialysis. Tele with narrow QRS complex 2. Acute hyperkalemia due to NICK, metabolic acidosis. Continue to monitor 3. Cdiff colitis with profuse diarrhea. on po vanco and flagyl iv 4. Shock with lactic acidosis. Hold antihypertensive, imdur 5. Metabolic acidosis continue with bicarb drip. Has increased bicarb loss from GI. 6. Sinus tachycardia due to dehydration. DW nursing staff
--- NOTE | 2018-05-30 20:36 | CON.PCM_ITS ---
Consultation - Renal 05/30/18 PCP/ Referring MD: Requesting physician: Alena Marcum Primary care physician: Caesar Chavez Reason for Consultation:: Acute on CKD stage 4, hyperkalemia - History of Present Illness History of Present Illness: The patient is a 62 year old M with CKD stage 4 due to diabetes, CAD s/p CABG, PCI, HTN, DM2, COPD, PAD, colon cancer with subtotal colectomy in the fall 2017, paroxysmal atrial fibrillation, LADARIUS, gout presented to the emergency department at [facility] on 05/30/2018 with complaints of nausea/vomiting/diarrhea past 3 days. He complains of watery stools every 15 minutes with mild abdominal pain. He denied fever,chills. Denies hematemesis, melena, but had bright red blood on the toilet paper with wiping. He was found to be in NICK with hyperkalemia. He was hospitalized for same complaints in April and positive for influenza. His potassium and renal fxn improved without requiring hemodialysis. Cdiff was positive with current admission. He complained of lightheadedness, weakness, numbness in his hands at home, improved now. He denies syncope, fall at home. He states he has been following a low K diet. He states he received a new prescription from pharmacy but could not recall name of medication. Chest x-ray showed no infiltrates.Lab on admit showed sodium 133, potassium is 7.2. Serum bicarb is 11 with a normal anion gap of 12. The BUN is 94 and the creatinine is 7.69 up from 2.91 on 05/18/2018. WBC elevated at 21K, hgb 13.9g. He is admitted to the ICU with cdiff colitis, acute on chronic renal failure and hyperkalemia, dehydration. He received fluid boluses for hypotension and medically managed for hyperkalemia. Repeat K tonight was 6.5. Urine output not measured due to continued diarrhea. - Allergies Allergies: Allergies No Known Allergies Allergy (Verified 05/30/18 10:18) - Current Medications Current Medications: Current Medications Acetaminophen (Tylenol) 650 mg PO Q4H PRN PRN PRN Reason: PAIN Albuterol Sulfate (Ventolin Aerosols) 2.5 mg INHALATION Q4HWA.RT [facility] Last Admin: 05/30/18 19:02 Dose: 2.5 mg Allopurinol (Zyloprim) 300 mg PO DAILY [facility] Aspirin (Aspirin, Baby) 81 mg PO DAILY [facility] Atorvastatin Calcium (Lipitor) 40 mg PO QHS [facility] Budesonide (Pulmicort Aerosol) 0.5 mg INHALATION BID.RT [facility] Last Admin: 05/30/18 19:03 Dose: 0.5 mg Cilostazol (Pletal) 50 mg PO BID [facility] Colchicine (Colchicine) 0.6 mg PO TID PRN PRN PRN Reason: GOUT Diazepam (Valium) 5 mg PO DAILY PRN PRN Reason: ANXIETY Ergocalciferol (Vitamin D) 50,000 unit PO Q14D [facility] Finasteride (Proscar) 5 mg PO DAILY [facility] Heparin Sodium (Porcine) (Heparin Na) 5,000 unit SC Q8 [facility] Hydrocortisone Acetate (Anusol Hc) 25 mg RECTAL BID [facility] Sodium Chloride () 250 mls @ 15 mls/hr IV .[id number] PRN PRN Reason: SALINE FLUSH Sodium Bicarbonate 150 meq/ (Dextrose) 1,150 mls @ 150 mls/hr IV .Q7H40M [facility] Last Admin: 05/30/18 15:29 Dose: 150 mls/hr Pantoprazole Sodium 40 mg/ (Sodium Chloride) 110 mls @ 330 mls/hr IV Q24 [facility] Metronidazole (Flagyl) 500 mg in 100 mls @ 100 mls/hr IV Q8 [facility] Isosorbide Mononitrate (Imdur) 30 mg PO DAILY [facility] Morphine Sulfate () 2 mg IV Q4H PRN PRN PRN Reason: SEVERE PAIN (6-10/10) Nitroglycerin (Nitrostat) 0.4 mg SUBLINGUAL Q5M PRN PRN Reason: Chest Pain Oxycodone HCl (Oxyir) 5 mg PO Q6H PRN PRN Reason: PAIN Sodium Chloride () 5 - 15 ml IV UD PRN PRN Reason: SALINE FLUSH Tamsulosin HCl (Flomax) 0.4 mg PO DAILY@1730 [facility] Last Admin: 05/30/18 18:25 Dose: 0.4 mg Vancomycin HCl () 125 mg PO Q6 [facility] - Past Medical History Past Medical History (Chronic Problems): Chronic Problems (Last Reviewed 04/21/18 @ 09:45 by Yaquelin Simpson) Chronic hypoxemic respiratory failure (Chronic) 2-3 LPM chronically Colon cancer (Chronic) had surgery with no chemo or radiation at [facility] fall Status post colon resection (Chronic) subtotal for colon CA in the fall at [facility] Hemorrhoids (Chronic) CKD (chronic kidney disease) stage 4, GFR 15-29 ml/min (Chronic) Nicotine dependence, cigarettes, in remission (Chronic) Stage 3 severe COPD by GOLD classification (Chronic) FEV1 37% predicted Heme + stool (Chronic) Anemia of chronic renal failure (Chronic) H/O pneumonectomy (Chronic) Right LL lobectomy due to benign tumor Peripheral vascular disease (Chronic) Radiculopathy affecting upper extremity (Chronic) Iron deficiency anemia (Chronic) Increased PTH level (Chronic) secondary to CRF stage4 Low vitamin D level (Chronic) Paroxysmal atrial fibrillation (Chronic) Nocturnal hypoxia (Chronic) Noncompliance with CPAP treatment (Chronic) LADARIUS (obstructive sleep apnea) (Chronic) Gout (Chronic) History of tobacco abuse (Chronic) quit in April 2017 Hx of CABG (Chronic) x3 2003 Coronary artery disease (Chronic) has had 3 stents.....the last stent he thinks in 2008 Hypertension (Chronic) Diabetes mellitus type 2 in obese (Chronic) - Past Surgical History Surgical History: angioplasty - stent x2 2003, - - rt lung thoracotomy, lobectomy 2009 for benign tumor - Social History Smoking Status: Current some day smoker - Family History Maternal Family History: Family History (Last Reviewed 04/21/18 @ 09:45 by Yaquelin Simpson) Father Leukemia Mother COPD (chronic obstructive pulmonary disease) History Items: COPD Paternal Family History: Family History (Last Reviewed 04/21/18 @ 09:45 by Yaquelin Simpson) Father Leukemia Mother COPD (chronic obstructive pulmonary disease) History Items: Cancer - leukemia, Hypertension Review of Systems Constitutional: Reports: Weakness. Denies: Anorexia, Chills, Fever HEENT: Denies: Head Aches Cardiovascular: Reports: Light Headedness. Denies: Chest Pain, Edema, Syncope Respiratory: Denies: Cough, Shortness of Breath Gastrointestinal: Reports: Abdominal Pain - mild, Diarrhea - every 15min, Nausea, Vomiting. Denies: Hematemesis, Hematochezia, Melena Genitourinary: Reports: -. Denies: Dysuria, Hematuria, Incontinence Musculoskeletal: Reports: - - no swelling Skin: Denies: Rash Neurological: Reports: Tingling, Tremor. Denies: Seizures Psychiatric: Denies: Anxiety, Depression Hematologic/ Lymphatic: Reports: Anemia Patient Problems: Active and Suspected Problems (Last Reviewed 04/21/18 @ 09:45 by Yaquelin Simpson) Clostridium difficile colitis (Acute) - Physical Exam General: Alert, Oriented x3, Cooperative, No apparent distress HEENT: PERRLA, EOMI Oral: Dry Mucosa Neck: Supple Lungs: Clear to auscultation Cardiovascular: No rub noted, Tachycardic Abdomen: Bowel Sounds Present, Soft, Distended - mild, Tender - minimal Skin: No rashes Musculoskeletal: No Muscle Wasting Neurological: Cranial nerves II-XII grossly intact, - - mild tremor Psych/Mental Status: Normal Affect, Appropriate, Alert and oriented to time, place, person, mood and affect Vital Signs Temp Pulse Resp BP Pulse Ox 97 F L 119 H 20 H 86/69 L 97 05/30/18 16:00 05/30/18 19:05 05/30/18 19:05 05/30/18 19:00 05/30/18 19:00 Oxygen Flow Rate (L/min) 2 Oxygen Delivery Method Nasal Cannula Weight: 96.3 kg Body Mass Index (BMI) 28.8 Intake and Output for Last 24 Hours 05/28/18 05/29/18 05/30/18 23:59 23:59 23:59 Intake Total 1000 / 1000 Balance 1000 / 1000 Microbiology Past 72 Hours 05/30/18 16:30 C. difficile DNA Amplification - Final Stool Toxigenic C. difficile DNA Laboratory Tests Past 24 Hrs 05/30/18 05/30/18 05/30/18 11:10 11:10 11:10 WBC 21.1 H RBC 4.83 Hgb 13.9 Hct 43.1 MCV 89.2 MCH 28.8 MCHC 32.3 RDW 16.0 H RDW Differential 51.5 H Plt Count 347 MPV 12.7 H Immature Gran % (Auto) 0.400 Neut % (Auto) 82.5 H Lymph % (Auto) 7.7 L [place] % (Auto) 3.6 Eos % (Auto) 5.7 H Baso % (Auto) 0.1 Absolute Neuts (auto) 17.4 H Absolute Lymphs (auto) 1.62 Total Counted Not Reportable Sodium 133 L Potassium 7.2 H* Chloride 110 H Carbon Dioxide 11.0 L Anion Gap 12 BUN 94 H Creatinine 7.68 H* Estim Creat Clear Calc 10.81 Est GFR (MDRD) Af Amer 9 L Est GFR (MDRD) Non-Af 8 L BUN/Creatinine Ratio 12.2 Glucose 178 H Lactic Acid 2.6 H Calcium 10.3 H Phosphorus Magnesium Total Bilirubin 0.30 AST 16 ALT 30 Alkaline Phosphatase 196 H Total Protein 9.4 H Albumin 4.5 Globulin 4.9 H Albumin/Globulin Ratio 0.9 Lipase 264 05/30/18 05/30/18 16:45 20:10 WBC RBC Hgb Hct MCV MCH MCHC RDW RDW Differential Plt Count MPV Immature Gran % (Auto) Neut % (Auto) Lymph % (Auto) [place] % (Auto) Eos % (Auto) Baso % (Auto) Absolute Neuts (auto) Absolute Lymphs (auto) Total Counted Sodium 132 L Pending Potassium 7.4 H* Pending Chloride 112 H Pending Carbon Dioxide 13.0 L Pending Anion Gap 7 Pending BUN 96 H Pending Creatinine 7.42 H* Pending Estim Creat Clear Calc 11.18 Est GFR (MDRD) Af Amer 10 L Pending Est GFR (MDRD) Non-Af 8 L Pending BUN/Creatinine Ratio 12.9 Pending Glucose 250 H Pending Lactic Acid Calcium 9.3 Pending Phosphorus 5.8 H Magnesium 1.7 Total Bilirubin AST ALT Alkaline Phosphatase Total Protein Albumin Globulin Albumin/Globulin Ratio Lipase Clinical Impression(s) from Imaging Studies Chest X-Ray 05/30/18 10:46 IMPRESSION: Stable, nonacute portable x-ray examination of the chest. Electronically Signed: Yves Lamb MD at 11:38 EDT , Service support , Assessment/Plan All Active Problems (Last Reviewed 04/21/18 @ 09:45 by Yaquelin Simpson) Clostridium difficile colitis (Acute) Gastroenteritis (Acute) NICK (acute kidney injury) (Acute) Hyperkalemia (Acute) Acute renal failure superimposed on stage 4 chronic kidney disease (Acute) Metabolic acidosis (Acute) Acute exacerbation of chronic obstructive pulmonary disease (COPD) (Resolved) Acute respiratory failure with hypoxemia (Resolved) Benign neoplasm of right lung (Resolved) Influenza B (Resolved) Lower GI bleed (Resolved) Severe sepsis (Resolved) Streptococcal pneumonia (Resolved) Urinary retention due to benign prostatic hyperplasia (Resolved) 1. NICK on CKD stage 4 due to gastroenteritis, dehydration, cdiff colitis. Cre atinine baseline 2.5 now at 7.68 to 7.4 with aggressive hydration. Check UA, SEAN, UCr. Continue with aggressive hydration. Hoff to CD for accurate I/O's. Will hold on hemodialysis. Tele with narrow QRS complex 2. Acute hyperkalemia due to NICK, metabolic acidosis. Continue to monitor 3. Cdiff colitis with profuse diarrhea. on po vanco and flagyl iv 4. Shock with lactic acidosis. Hold antihypertensive, imdur 5. Metabolic acidosis continue with bicarb drip. Has increased bicarb loss from GI. 6. Sinus tachycardia due to dehydration. DW nursing staff
[2018-05-30 20:40] LABS: Anion Gap 8 (5-15); BUN 101 mg/dL (7-18); BUN/Creat Ratio 13.3 RATIO (10-20); Calcium,Total 9.3 mg/dL (8.5-10.1); Chloride 111 mmol/L (98-107); Creatinine, Serum 7.62 mg/dL (0.70-1.30); EST Glomerular Filtration Rate 8 mL/min (>60); Est Glom Filt Rate - Afr Amer 9 mL/min (>60); Estimated Creatinine Clearance 10.89 ml/min; Glucose 232 mg/dL (74-106); Potassium 6.5 mmol/L (3.5-5.1); Sodium Level 132 mmol/L (136-145)
[2018-05-30] MEDS: Hydrocortisone 25 MG Suppository RECTAL (21:26)
[2018-05-30 21:39] LABS: Bacteria 0 SEEN /hpf (None Seen); Mucous, Urine 0 SEEN /hpf (<or=2+); Red Blood Cells-Urine 0 SEEN /hpf (0-5); Squamous Epithelial Cells - UA 0 SEEN /hpf (0-5); White Blood Cells 0 SEEN /hpf (0-5)
[2018-05-30 21:54] LABS: Color, Urine Yellow (Yellow); Glucose, Dipstick 50 mg/dl (Normal); Ketone-Dipstick Negative (Negative); Urine Bilirubin Dipstick Negative (Negative); Urine Clarity Clear (Clear)
[2018-05-30 21:55] LABS: Nitrite-Dipstick Negative (Negative); Occult Blood-Urine Negative /ul (Negative); Protein-Dipstick 100 mg/dl (Negative); Urine Urobilinogen Normal (Normal)
[2018-05-30 21:56] LABS: Leukocyte Esterase-Dipstick 25 /ul (Negative)
[2018-05-30 21:58] LABS: Urine Sodium 44 mmol/L (Not Establ.)
--- NOTE | 2018-05-30 22:00 | NURSING ---
Dr. Rincon at bedside to insert central line. Consent obtained by pt.
--- NOTE | 2018-05-30 22:41 | RAD_ITS ---
STUDY: X-RAY CHEST REASON FOR EXAM: Male, 62 years old. Line placement TECHNIQUE: Single AP portable view of the chest. COMPARISON: 05/30 2018 1116 hours. FINDINGS: Interval placement of a right internal jugular venous access catheter with catheter tip over the mid superior vena cava in good position. There is no demonstrated pneumothorax. Stable distortion of parenchyma, postsurgical changes in the right suprahilar and perihilar parenchyma, question calcified small nodules in the mediastinum and right hilum, stable right rib deformities. There are areas of hyperinflation. Stable blunting of the right costophrenic angle. Normal size heart. Normal mediastinum and elizbaeth. Normal visualized pulmonary arteries. Normal visualized aortic arch and descending thoracic aorta. Normal visualized thoracic spine. Normal visualized ribs, clavicles, and shoulders. There is no demonstrated abnormality of the visualized soft tissue structures of the upper abdomen. RAD/CXR for Line Placement IMPRESSION: Line in good position, no pneumothorax. Postsurgical changes, possible calcified parenchymal and mediastinal nodules and areas of hyperinflation possible post obstruction. No pulmonary edema, congestive heart failure or confluent pneumonia. Electronically Signed: Angelica Solano MD at 0:00 EDT , Service support ,
--- NOTE | 2018-05-30 22:55 | PCM.HOSP.N ---
Hospitalist Note Central line note: Patient with ongoing hypotension, inability to obtain labs with ongoing need for close monitoring of electrolytes with scant access in the left shoulder with possible future pressor needs. Consent obtained for placement of central line and patient amenable. R IJ region prepped and draped in standard fashion. US guidance used to obtain access, guidewire threaded without issue, central line catheter placed over guidewire and wire removed w/ cap placed. Lines again drawn and flushed without difficulty. Central line sutured in place. CXR ordered and currently awaiting. Code Visit Procedures: [id number] Insert Non-tunnel CV Cath
--- NOTE | 2018-05-30 22:58 | CCHN_ITS ---
Hospitalist Note Central line note: Patient with ongoing hypotension, inability to obtain labs with ongoing need for close monitoring of electrolytes with scant access in the left shoulder with possible future pressor needs. Consent obtained for placement of central line and patient amenable. R IJ region prepped and draped in standard fashion. US guidance used to obtain access, guidewire threaded without issue, central line catheter placed over guidewire and wire removed w/ cap placed. Lines again drawn and flushed without difficulty. Central line sutured in place. CXR ordered and currently awaiting. Code Visit Procedures: [id number] Insert Non-tunnel CV Cath
[2018-05-30] MEDS: Atorvastatin Calcium 40 MG Tablet PO (23:05)
[2018-05-30] MEDS: Heparin Injection (Vial) 5,000 UNIT/ML VIAL 5000 UNIT SC (23:05)
[2018-05-30] MEDS: Cilostazol 50 MG Tablet PO (23:05)
[2018-05-30 23:26] LABS: Bedside Glucose 167 mg/dL (70-110)
[2018-05-31] VITALS (48 sets, daily range): BP systolic 63–133; BP diastolic 40–82; PULSE 85–111; RESP 11–30; TEMP 36.6–37.1; O2SAT 93–100
[2018-05-31 00:42] LABS: Anion Gap 8 (5-15); BUN 101 mg/dL (7-18); BUN/Creat Ratio 13.4 RATIO (10-20); Calcium,Total 8.7 mg/dL (8.5-10.1); Chloride 111 mmol/L (98-107); Creatinine, Serum 7.54 mg/dL (0.70-1.30); EST Glomerular Filtration Rate 8 mL/min (>60); Est Glom Filt Rate - Afr Amer 9 mL/min (>60); Estimated Creatinine Clearance 11.01 ml/min; Glucose 178 mg/dL (74-106); Potassium 5.4 mmol/L (3.5-5.1); Sodium Level 134 mmol/L (136-145)
[2018-05-31] MEDS: Heparin Injection (Vial) 5,000 UNIT/ML VIAL 5000 UNIT SC ×3 (05:17→21:24)
[2018-05-31] MEDS: Insulin Lispro 100 UNIT/ML INSULN.PEN SC ×3 (05:29→17:12)
--- NOTE | 2018-05-31 05:53 | PCM.CON.CC ---
Reason for Consult Date of Consultation: 05/31/18 Reason for Consultation: Septic shock History of Present Illness: The patient is a 62-year-old male, with a history as outlined below, who presented to the emergency department on May 30 with complaints of nausea, vomiting and diarrhea over the last 3-4 days. The patient was recently admitted to the hospital May 12 - May 16 and treated for hypovolemia secondary to gastroenteritis. The patient currently follows with me in the pulmonary medicine clinic due to a history of COPD. He has a [id number] smoking history, having quit completely in 2017. In addition, he has known obstructive sleep apnea, for which he is noncompliant with the use of noninvasive positive pressure ventilation. The patient's medical history is also significant for colon cancer for which he is status post subtotal colectomy in 2018, chronic kidney disease, paroxysmal atrial fibrillation, coronary artery disease status post CABG and diabetes. On presentation to the emergency department, the patient was initially noted to be afebrile, but was tachycardic. He was hemodynamically stable, nonetheless. Laboratory evaluation revealed an elevated white blood cell count to 21,000. Chemistry profile was notable for a sodium of 133, potassium of 7.2, bicarbonate of 11 and an elevated creatinine to 7.68. Serum lactate was elevated to 2.6. Plain film chest x-ray revealed chronic pulmonary findings without acute process. In the emergency department, the patient received supplemental IV fluids along with antiemetics and medical treatment for his hyperkalemia. He was subsequently admitted to the hospital for ongoing management. Nephrology was consulted for the patient's acute on chronic kidney disease. Over the course of the evening on May 30, the patient's blood pressures started to become quite labile. Due to the fluid refractory nature of the patient's hypotension, he was transferred to the medical intensive care unit. A right IJ central venous catheter was subsequently placed and the patient was started on levophed to maintain hemodynamic stability. His Levophed is currently infusing at 10 mcg. The patient remains on a continuous bicarbonate infusion, per nephrology recommendations. Past Medical History Past Medical History (Chronic Problems): Chronic Problems (Last Reviewed 04/21/18 @ 09:45 by Yaquelin Simpson) Chronic hypoxemic respiratory failure (Chronic) 2-3 LPM chronically Colon cancer (Chronic) had surgery with no chemo or radiation at [facility] fall Status post colon resection (Chronic) subtotal for colon CA in the fall at [facility] Hemorrhoids (Chronic) CKD (chronic kidney disease) stage 4, GFR 15-29 ml/min (Chronic) Nicotine dependence, cigarettes, in remission (Chronic) Stage 3 severe COPD by GOLD classification (Chronic) FEV1 37% predicted Heme + stool (Chronic) Anemia of chronic renal failure (Chronic) H/O pneumonectomy (Chronic) Right LL lobectomy due to benign tumor Peripheral vascular disease (Chronic) Radiculopathy affecting upper extremity (Chronic) Iron deficiency anemia (Chronic) Increased PTH level (Chronic) secondary to CRF stage4 Low vitamin D level (Chronic) Paroxysmal atrial fibrillation (Chronic) Nocturnal hypoxia (Chronic) Noncompliance with CPAP treatment (Chronic) LADARIUS (obstructive sleep apnea) (Chronic) Gout (Chronic) History of tobacco abuse (Chronic) quit in April 2017 Hx of CABG (Chronic) x3 2004 Coronary artery disease (Chronic) has had 3 stents.....the last stent he thinks in 2008 Hypertension (Chronic) Diabetes mellitus type 2 in obese (Chronic) Medical History: Medical History (Last Reviewed 04/21/18 @ 09:45 by Yaquelin Simpson) Nicotine dependence, cigarettes, in remission (Chronic) F17.211 Heme + stool (Chronic) R19.5 Acute renal failure superimposed on stage 4 chronic kidney disease (Acute) N17.9, N18.4 Radiculopathy affecting upper extremity (Chronic) M54.10 Iron deficiency anemia (Chronic) D50.9 Increased PTH level (Chronic) E34.9 secondary to CRF stage4 Metabolic acidosis (Acute) E87.2 Low vitamin D level (Chronic) E55.9 Paroxysmal atrial fibrillation (Chronic) I48.0 Nocturnal hypoxia (Chronic) G47.34 Noncompliance with CPAP treatment (Chronic) Z91.14 LADARIUS (obstructive sleep apnea) (Chronic) G47.33 Gout (Chronic) M10.9 History of tobacco abuse (Chronic) Z87.891 quit in April 2017 Coronary artery disease (Chronic) I25.10 has had 3 stents.....the last stent he thinks in 2008 Hypertension (Chronic) I10 Diabetes mellitus type 2 in obese (Chronic) E11.69, E66.9 Colon cancer C18.9 Acute exacerbation of chronic obstructive pulmonary disease (COPD) (Resolved) J44.1 Acute respiratory failure with hypoxemia (Resolved) J96.01 Influenza B (Resolved) J10.1 Lower GI bleed (Resolved) K92.2 Severe sepsis (Resolved) A41.9, R65.20 Streptococcal pneumonia (Resolved) J15.4 Urinary retention due to benign prostatic hyperplasia (Resolved) N40.1, R33.8 NSAID long-term use (Inactive) Z79.1 Non-STEMI (non-ST elevated myocardial infarction) (Inactive) I21.4 Allergies No Known Allergies Allergy (Verified 05/30/18 10:18) Home Medications: Ambulatory Orders Medication Instructions Recorded Aspirin 81 mg PO DAILY 05/14/17 Nitroglycerin [Nitrostat] 0.4 mg SUBLINGUAL Q5M PRN 05/14/17 Oxycodone [Oxyir] 5 mg PO BID PRN PRN 05/14/17 Simvastatin 80 mg PO QHS 05/14/17 Oxygen, Home [Home Oxygen] 2 - 3 lpm NASAL UD #1 unit 05/18/17 Albuterol Aerosols [Ventolin 2.5 mg INHALATION Q4H PRN PRN 09/15/17 Aerosols] Allopurinol [Zyloprim] 300 mg PO DAILY 09/15/17 Cilostazol 50 mg PO BID 09/15/17 Colchicine 0.6 mg PO TID PRN 09/15/17 Ergocalciferol [Vitamin D] 50,000 unit PO Q7D 09/15/17 Finasteride [Proscar] 5 mg PO DAILY 09/15/17 Isosorbide Mononitrate [Imdur] 30 mg PO DAILY 09/15/17 Metoprolol(XL)Succ [Toprol Xl 50 mg PO DAILY 09/15/17 (Beta Vanesa)] Nebulizer [Aeroneb Go Nebulizer] 1 ea MC 4X/DAY 09/15/17 Pantoprazole Sodium [Protonix] 40 mg PO DAILY 09/15/17 Tamsulosin HCl [Flomax] 0.4 mg PO DAILY@1730 09/15/17 hydrALAZINE [Apresoline] 25 mg PO TID 09/15/17 umeclidinium 62.5 mcg/actuation 1 inh INHALATION QDAY #30 ea 04/22/18 blister powder for inhalation Albuterol Inhaler [Ventolin Hfa] 1 - 2 puff INHALATION Q4H PRN PRN 05/12/18 Diazepam [Valium] 5 mg PO DAILY PRN 05/12/18 Sodium Bicarbonate 650 mg PO BID 05/12/18 Insulin Aspart [Novolog Flexpen] 5 units SC TIDCM #0 05/16/18 Insulin Degludec [Tresiba 20 unit SC QHS #0 05/16/18 Flextouch U-100] Surgical History: Surgical History (Last Updated 04/21/18 @ 09:51 by Yaquelin Simpson) Hx of CABG (Chronic) Z95.1 x3 2003 H/O colectomy Z90.49 3/4 of colon, 12/2017, Dr. Alvarado with [facility] S/P removal of lung Z90.2 3/4 of right lung was removed by Dr. Todd in [facility] 11/2009 Surgical History: angioplasty - stent x2 2003, - - rt lung thoracotomy, lobectomy 2009 for benign tumor Smoking Status: Current some day smoker - *Family History Maternal Family History: Family History (Last Reviewed 04/21/18 @ 09:45 by Yaquelin Simpson) Father Leukemia Mother COPD (chronic obstructive pulmonary disease) History Items: COPD Paternal Family History: Family History (Last Reviewed 04/21/18 @ 09:45 by Yaquelin Simpson) Father Leukemia Mother COPD (chronic obstructive pulmonary disease) History Items: Cancer - leukemia, Hypertension Review of Systems Constitutional: Reports: Weakness, Fatigue Eyes: Denies: Blurred vision, Double vision HEENT: Denies: Head Aches, Sinus Congestion, Sinus Drainage Cardiovascular: Denies: Chest Pain, Palpitations Respiratory: Denies: Cough, Shortness of breath at rest, Sputum production Gastrointestinal: Reports: Abdominal Pain, Diarrhea, Nausea Genitourinary: Denies: Dysuria Musculoskeletal: Denies: Joint Pain, Joint Tenderness Skin: Denies: Rash, Wounds Neurological: Denies: Numbness, Tingling, Focal weakness Psychiatric: Denies: Anxiety, Depression, Homicidal Ideations, Suicidal Ideations Hematologic/ Lymphatic: Denies: Easy Bruising, Easy Bleeding Patient Problems: Active and Suspected Problems (Last Reviewed 04/21/18 @ 09:45 by Yaquelin Simpson) Clostridium difficile colitis (Acute) Objective: The patient's most recent lab work, culture data and imaging studies have all been personally reviewed. C. difficile was positive. - Physical Exam General: Alert, Oriented x3, Cooperative, No apparent distress HEENT: Atraumatic, PERRLA, Normocephalic Oral: No Gingival or Mucosal Lesions/ Ulcerations Neck: Supple, No Nodes, Trachea Midline, - - Right IJ central venous catheter in place Lungs: No rhonchi, No wheeze, No rales, Diminished Cardiovascular: Normal S1, Normal S2, No murmurs, Tachycardic Abdomen: Bowel Sounds Present, Soft, Non Tender Extremities: No clubbing, No cyanosis, No edema Skin: No breakdown Musculoskeletal: No Tenderness to Palpation of Joints or Extremities, No Muscle Wasting Lymphatic: No Cervical, Supraclavicular, or Inguinal Adenopathy Neurological: Cranial nerves II-XII grossly intact, Neuro grossly intact Psych/Mental Status: Alert and oriented to time, place, person, mood and affect Vital Signs Temp Pulse Resp BP Pulse Ox 36.8 C 101 H 11 L 101/56 L 93 05/31/18 05:00 05/31/18 05:00 05/31/18 05:00 05/31/18 05:00 05/31/18 05:00 Oxygen Flow Rate (L/min) 1 Oxygen Delivery Method Room Air Weight: 214 lb 11.684 oz Body Mass Index (BMI) 28.8 Intake and Output for Last 24 Hours 05/29/18 05/30/18 05/31/18 23:59 23:59 23:59 Intake Total 3006 / 3006 1444.7 / 1444.7 Output Total 150 / 150 150 / 150 Balance 2856 / 2856 1294.7 / 1294.7 Microbiology Past 72 Hours 05/30/18 16:30 C. difficile DNA Amplification - Final Stool Toxigenic C. difficile DNA Laboratory Tests Past 24 Hrs 05/30/18 05/30/18 05/30/18 11:10 11:10 11:10 WBC 21.1 H RBC 4.83 Hgb 13.9 Hct 43.1 MCV 89.2 MCH 28.8 MCHC 32.3 RDW 16.0 H RDW Differential 51.5 H Plt Count 347 MPV 12.7 H Immature Gran % (Auto) 0.400 Neut % (Auto) 82.5 H Lymph % (Auto) 7.7 L [place] % (Auto) 3.6 Eos % (Auto) 5.7 H Baso % (Auto) 0.1 Absolute Neuts (auto) 17.4 H Absolute Lymphs (auto) 1.62 Total Counted Not Reportable Sodium 133 L Potassium 7.2 H* Chloride 110 H Carbon Dioxide 11.0 L Anion Gap 12 BUN 94 H Creatinine 7.68 H* Estim Creat Clear Calc 10.81 Est GFR (MDRD) Af Amer 9 L Est GFR (MDRD) Non-Af 8 L BUN/Creatinine Ratio 12.2 Glucose 178 H Lactic Acid 2.6 H Calcium 10.3 H Phosphorus Magnesium Total Bilirubin 0.30 AST 16 ALT 30 Alkaline Phosphatase 196 H Total Protein 9.4 H Albumin 4.5 Globulin 4.9 H Albumin/Globulin Ratio 0.9 Lipase 264 Urine Color Urine Clarity Urine pH Ur Specific [place] Urine Protein Urine Glucose (UA) Urine Ketones Urine Occult Blood Urine Nitrite Urine Bilirubin Urine Urobilinogen Ur Leukocyte Esterase Urine RBC Urine WBC Ur Squamous Epith Cells Urine Bacteria Urine Mucus Ur Random Sodium Urine Creatinine 05/30/18 05/30/18 05/30/18 16:45 20:10 21:25 WBC RBC Hgb Hct MCV MCH MCHC RDW RDW Differential Plt Count MPV Immature Gran % (Auto) Neut % (Auto) Lymph % (Auto) [place] % (Auto) Eos % (Auto) Baso % (Auto) Absolute Neuts (auto) Absolute Lymphs (auto) Total Counted Sodium 132 L 132 L Potassium 7.4 H* 6.5 H* Chloride 112 H 111 H Carbon Dioxide 13.0 L 13.0 L Anion Gap 7 8 BUN 96 H 101 H* Creatinine 7.42 H* 7.62 H* Estim Creat Clear Calc 11.18 10.89 Est GFR (MDRD) Af Amer 10 L 9 L Est GFR (MDRD) Non-Af 8 L 8 L BUN/Creatinine Ratio 12.9 13.3 Glucose 250 H 232 H Lactic Acid Calcium 9.3 9.3 Phosphorus 5.8 H Magnesium 1.7 Total Bilirubin AST ALT Alkaline Phosphatase Total Protein Albumin Globulin Albumin/Globulin Ratio Lipase Urine Color Urine Clarity Urine pH Ur Specific [place] Urine Protein Urine Glucose (UA) Urine Ketones Urine Occult Blood Urine Nitrite Urine Bilirubin Urine Urobilinogen Ur Leukocyte Esterase Urine RBC Urine WBC Ur Squamous Epith Cells Urine Bacteria Urine Mucus Ur Random Sodium Urine Creatinine 215.00 05/30/18 05/30/18 05/31/18 21:25 21:25 00:10 WBC RBC Hgb Hct MCV MCH MCHC RDW RDW Differential Plt Count MPV Immature Gran % (Auto) Neut % (Auto) Lymph % (Auto) [place] % (Auto) Eos % (Auto) Baso % (Auto) Absolute Neuts (auto) Absolute Lymphs (auto) Total Counted Sodium 134 L Potassium 5.4 H Chloride 111 H Carbon Dioxide 15.0 L Anion Gap 8 BUN 101 H* Creatinine 7.54 H* Estim Creat Clear Calc 11.01 Est GFR (MDRD) Af Amer 9 L Est GFR (MDRD) Non-Af 8 L BUN/Creatinine Ratio 13.4 Glucose 178 H Lactic Acid Calcium 8.7 Phosphorus Magnesium Total Bilirubin AST ALT Alkaline Phosphatase Total Protein Albumin Globulin Albumin/Globulin Ratio Lipase Urine Color Yellow Urine Clarity Clear Urine pH 5.0 Ur Specific [place] 1.020 Urine Protein 100 H Urine Glucose (UA) 50 H Urine Ketones Negative Urine Occult Blood Negative Urine Nitrite Negative Urine Bilirubin Negative Urine Urobilinogen Normal Ur Leukocyte Esterase 25 H Urine RBC 0 SEEN Urine WBC 0 SEEN Ur Squamous Epith Cells 0 SEEN Urine Bacteria 0 SEEN Urine Mucus 0 SEEN Ur Random Sodium 44 Urine Creatinine 05/31/18 05/31/18 05:25 05:25 WBC Pending RBC Pending Hgb Pending Hct Pending MCV Pending MCH Pending MCHC Pending RDW Pending RDW Differential Pending Plt Count Pending MPV Immature Gran % (Auto) Neut % (Auto) Pending Lymph % (Auto) [place] % (Auto) Eos % (Auto) Baso % (Auto) Absolute Neuts (auto) Pending Absolute Lymphs (auto) Total Counted Pending Sodium Pending Potassium Pending Chloride Pending Carbon Dioxide Pending Anion Gap Pending BUN Pending Creatinine Pending Estim Creat Clear Calc Est GFR (MDRD) Af Amer Pending Est GFR (MDRD) Non-Af Pending BUN/Creatinine Ratio Pending Glucose Pending Lactic Acid Calcium Pending Phosphorus Pending Magnesium Pending Total Bilirubin Pending AST Pending ALT Pending Alkaline Phosphatase Pending Total Protein Pending Albumin Pending Globulin Albumin/Globulin Ratio Lipase Urine Color Urine Clarity Urine pH Ur Specific [place] Urine Protein Urine Glucose (UA) Urine Ketones Urine Occult Blood Urine Nitrite Urine Bilirubin Urine Urobilinogen Ur Leukocyte Esterase Urine RBC Urine WBC Ur Squamous Epith Cells Urine Bacteria Urine Mucus Ur Random Sodium Urine Creatinine POC Glucose 05/30/18 23:07 POC Glucose 167 H Clinical Impression(s) from Imaging Studies Chest X-Ray 05/30/18 10:46 IMPRESSION: Stable, nonacute portable x-ray examination of the chest. Electronically Signed: Yves Lamb MD at 11:38 EDT , Service support , Chest X-Ray 05/30/18 22:41 IMPRESSION: Line in good position, no pneumothorax. Postsurgical changes, possible calcified parenchymal and mediastinal nodules and areas of hyperinflation possible post obstruction. No pulmonary edema, congestive heart failure or confluent pneumonia. Electronically Signed: Angelica Solano MD at 0:00 EDT , Service support , Assessment/Plan Active and Suspected Problems (Last Reviewed 04/21/18 @ 09:45 by Yaquelin Simpson) Clostridium difficile colitis (Acute) RECOMMENDATIONS: 1. Continue antibiotics as ordered. 2. Continue vasopressor support to maintain a mean arterial pressure at or above 65 mmHg. 3. Continue bicarbonate infusion per nephrology recommendations. 4. Continue scheduled bronchodilators. 5. Encourage incentive spirometer use and mobilize patient as tolerated. IMPRESSIONS: 1. Septic shock secondary to C. difficile colitis The patient is currently receiving supplemental IV fluids per nephrology recommendations. Recommend continuing Levophed to maintain a mean arterial pressure at or above 65 mmHg. Continue antimicrobials as ordered. 2. Acute on chronic kidney disease Likely exacerbated by the patient's hypotension and intravascular volume status. Continue supportive measures as noted above. Defer timing of need for hemodialysis to nephrology. 3. Baseline COPD without exacerbation Continue bronchodilators as ordered. Encourage incentive spirometer use and mobilize patient as tolerated. 4. Known history of obstructive sleep apnea While the patient has known obstructive sleep apnea, he has been and continues to be noncompliant with the use of nocturnal Pap therapy. 5. Hypertension/hyperlipidemia/gout/pulmonary nodule/tobacco dependency in remission/coronary artery disease status post CABG/history of colon cancer Complicates care, management, recovery and prognosis. Continue to hold home antihypertensive regimen. TIME: 40 minutes of critical care time, independent of procedures, was spent addressing the patient's septic shock secondary to C. difficile colitis, acute on chronic kidney disease, COPD, obstructive sleep apnea, review of all data and collaboration with the care team. ([id number]) Code Visit 9xxxx: [id number] Critical care first hour
[2018-05-31 06:05] LABS: ALB/GLOB Ratio 0.9 RATIO (0.9-2.4); AST(SGOT) 8 U/L (15-37); Alanine Aminotransfer ALT/SGPT 21 U/L (16-61); Albumin, Serum 3.1 g/dL (3.2-5.0); Alkaline Phosphatase 140 U/L (45-117); Anion Gap 10 (5-15); BUN 96 mg/dL (7-18); BUN/Creat Ratio 13.2 RATIO (10-20); Calcium,Total 8.5 mg/dL (8.5-10.1); Chloride 109 mmol/L (98-107); Creatinine, Serum 7.29 mg/dL (0.70-1.30); EST Glomerular Filtration Rate 8 mL/min (>60); Est Glom Filt Rate - Afr Amer 10 mL/min (>60); Estimated Creatinine Clearance 11.38 ml/min; Globulin 3.5 g/dL (2.2-4.2); Glucose 263 mg/dL (74-106); Magnesium 1.5 mg/dL (1.6-2.6); Potassium 4.9 mmol/L (3.5-5.1); Protein, Total 6.6 g/dL (6.4-8.2); Sodium Level 137 mmol/L (136-145)
[2018-05-31 06:20] LABS: Absolute Lymphocyte Count 2.33 X10^3/ul (0.83-4.51); Absolute Neutrophil Count 8.4 X10^3/uL (2.0-7.7); Basophil# 0.02 X10^3/uL; Basophil% 0.1 % (0-1); Hematocrit 32.4 % (40-54); Hemoglobin 10.5 g/dl (13.0-16.5); Lymphocyte # 2.33 X10^3/ul (4.0); Mean Corp Hgb Conc 32.4 g/gl (32-36); Mean Corpuscular Hgb 28.3 pg (27.0-32.0); Mean Corpuscular Volume 87.3 fL (80-94); Mean Platelet Vol. 12.4 fl (6.2-12.0); Monocyte# 1.23 X10^3/uL; Monocyte% 8.4 % (0-10); Neutrophil # 8.35 X10^3/uL (2.7-7.7); Neutrophil % 57.2 % (47-70); Platelet Count 303 K/mm3 (150-450); RBC Distribution Width CV 15.7 % (11.6-14.6); RBC Distribution Width SD 50.4 fl (35.1-43.9); Red Blood Count 3.71 M/mm3 (4.6-6.2); White Blood Count 14.6 K/mm3 (4.4-11.0)
[2018-05-31 06:21] LABS: Bedside Glucose 250 mg/dL (70-110)
[2018-05-31 06:24] LABS: Differential Indicated SCAN CRITERIA MET; Eosinophil# 2.62 X10^3/uL; POSITIVE COUNT NO; POSITIVE DIFFERENTIAL YES; POSITIVE MORPHOLOGY NO
[2018-05-31] MEDS: Albuterol 2.5 MG/3 ML VIAL.NEB. INHALATION ×3 (06:35→19:09)
[2018-05-31] MEDS: Budesonide Respules 0.5 MG/2 ML AMPUL.NEB. INHALATION ×2 (06:35→19:09)
--- NOTE | 2018-05-31 07:08 | PN_ITS ---
Patient Problems: Active and Suspected Problems (Last Reviewed 04/21/18 @ 09:45 by Yaquelin Simpson) Clostridium difficile colitis (Acute) Subjective: 62 YO Male admitted 05/30 with acute renal failure on chronic renal failure stage 4 due to intractable N/V/D due to Clostridium difficile. All events of the past 24 hours been reviewed. Afebrile since admission. Blood pressure currently being maintained with 10 mcg of Levophed. Tachycardia is improving and current heart rate ranges from 93-100. He is maintaining a saturation of 93-96% on room air. Fluid balance on 05/30/2018 was +[id number]. Fluid balance since admission is positive 4,150 All lab has been personally reviewed. White blood cell count today is 14.6, down from 21.1 at admission. Hemoglobin is 10.5 which is still a little high for him and the platelets are within normal limits. Hyponatremia has resolved and the sodium is 137 today. Potassium is now 4.9. Serum bicarb is up to 18 and the BUN is 96 with a creatinine of 7.29, down from 7.68 at admission. Phosphorus is high at 6 and the magnesium was low at 1.5. Denies lightheadedness, CP, SOB. No significant abdominal pain. Diarrhea has slowed down and he denies nausea and has not had an emesis overnight. His only complaint is that he is hungry - Physical Exam General: Alert, Oriented x3, Cooperative, No apparent distress HEENT: PERRLA Oral: Dry Mucosa Neck: No JVD, - - R IJ in place Lungs: Clear to auscultation, No rhonchi, No wheeze, No rales Cardiovascular: Regular Rhythm, Normal S1, Normal S2, No murmurs, No rub noted, No Gallop, Tachycardic Abdomen: Soft, Non Tender, Hypoactive Bowel Sounds, Distended Extremities: No cyanosis, No edema Neurological: Cranial nerves II-XII grossly intact, Neuro grossly intact Psych/Mental Status: Normal Affect, Appropriate Vital Signs Temp Pulse Resp BP Pulse Ox 98.3 F 100 15 91/67 96 05/31/18 05:00 05/31/18 06:36 05/31/18 06:36 05/31/18 06:00 05/31/18 06:36 Oxygen Flow Rate (L/min) 1 Oxygen Delivery Method Room Air Weight: 214 lb 11.684 oz Body Mass Index (BMI) 28.8 Intake and Output for Last 24 Hours 05/29/18 05/30/18 05/31/18 23:59 23:59 23:59 Intake Total 3006 / 3006 1444.7 / 1444.7 Output Total 150 / 150 150 / 150 Balance 2856 / 2856 1294.7 / 1294.7 Microbiology Past 72 Hours 05/30/18 16:30 C. difficile DNA Amplification - Final Stool Toxigenic C. difficile DNA Laboratory Tests Past 24 Hrs 05/30/18 05/30/18 05/30/18 11:10 11:10 11:10 WBC 21.1 H RBC 4.83 Hgb 13.9 Hct 43.1 MCV 89.2 MCH 28.8 MCHC 32.3 RDW 16.0 H RDW Differential 51.5 H Plt Count 347 MPV 12.7 H Immature Gran % (Auto) 0.400 Neut % (Auto) 82.5 H Lymph % (Auto) 7.7 L [place] % (Auto) 3.6 Eos % (Auto) 5.7 H Baso % (Auto) 0.1 Absolute Neuts (auto) 17.4 H Absolute Lymphs (auto) 1.62 Total Counted Not Reportable Sodium 133 L Potassium 7.2 H* Chloride 110 H Carbon Dioxide 11.0 L Anion Gap 12 BUN 94 H Creatinine 7.68 H* Estim Creat Clear Calc 10.81 Est GFR (MDRD) Af Amer 9 L Est GFR (MDRD) Non-Af 8 L BUN/Creatinine Ratio 12.2 Glucose 178 H Lactic Acid 2.6 H Calcium 10.3 H Phosphorus Magnesium Total Bilirubin 0.30 AST 16 ALT 30 Alkaline Phosphatase 196 H Total Protein 9.4 H Albumin 4.5 Globulin 4.9 H Albumin/Globulin Ratio 0.9 Lipase 264 Urine Color Urine Clarity Urine pH Ur Specific [place] Urine Protein Urine Glucose (UA) Urine Ketones Urine Occult Blood Urine Nitrite Urine Bilirubin Urine Urobilinogen Ur Leukocyte Esterase Urine RBC Urine WBC Ur Squamous Epith Cells Urine Bacteria Urine Mucus Ur Random Sodium Urine Creatinine 05/30/18 05/30/18 05/30/18 16:45 20:10 21:25 WBC RBC Hgb Hct MCV MCH MCHC RDW RDW Differential Plt Count MPV Immature Gran % (Auto) Neut % (Auto) Lymph % (Auto) [place] % (Auto) Eos % (Auto) Baso % (Auto) Absolute Neuts (auto) Absolute Lymphs (auto) Total Counted Sodium 132 L 132 L Potassium 7.4 H* 6.5 H* Chloride 112 H 111 H Carbon Dioxide 13.0 L 13.0 L Anion Gap 7 8 BUN 96 H 101 H* Creatinine 7.42 H* 7.62 H* Estim Creat Clear Calc 11.18 10.89 Est GFR (MDRD) Af Amer 10 L 9 L Est GFR (MDRD) Non-Af 8 L 8 L BUN/Creatinine Ratio 12.9 13.3 Glucose 250 H 232 H Lactic Acid Calcium 9.3 9.3 Phosphorus 5.8 H Magnesium 1.7 Total Bilirubin AST ALT Alkaline Phosphatase Total Protein Albumin Globulin Albumin/Globulin Ratio Lipase Urine Color Urine Clarity Urine pH Ur Specific [place] Urine Protein Urine Glucose (UA) Urine Ketones Urine Occult Blood Urine Nitrite Urine Bilirubin Urine Urobilinogen Ur Leukocyte Esterase Urine RBC Urine WBC Ur Squamous Epith Cells Urine Bacteria Urine Mucus Ur Random Sodium Urine Creatinine 215.00 05/30/18 05/30/18 05/31/18 21:25 21:25 00:10 WBC RBC Hgb Hct MCV MCH MCHC RDW RDW Differential Plt Count MPV Immature Gran % (Auto) Neut % (Auto) Lymph % (Auto) [place] % (Auto) Eos % (Auto) Baso % (Auto) Absolute Neuts (auto) Absolute Lymphs (auto) Total Counted Sodium 134 L Potassium 5.4 H Chloride 111 H Carbon Dioxide 15.0 L Anion Gap 8 BUN 101 H* Creatinine 7.54 H* Estim Creat Clear Calc 11.01 Est GFR (MDRD) Af Amer 9 L Est GFR (MDRD) Non-Af 8 L BUN/Creatinine Ratio 13.4 Glucose 178 H Lactic Acid Calcium 8.7 Phosphorus Magnesium Total Bilirubin AST ALT Alkaline Phosphatase Total Protein Albumin Globulin Albumin/Globulin Ratio Lipase Urine Color Yellow Urine Clarity Clear Urine pH 5.0 Ur Specific [place] 1.020 Urine Protein 100 H Urine Glucose (UA) 50 H Urine Ketones Negative Urine Occult Blood Negative Urine Nitrite Negative Urine Bilirubin Negative Urine Urobilinogen Normal Ur Leukocyte Esterase 25 H Urine RBC 0 SEEN Urine WBC 0 SEEN Ur Squamous Epith Cells 0 SEEN Urine Bacteria 0 SEEN Urine Mucus 0 SEEN Ur Random Sodium 44 Urine Creatinine 05/31/18 05/31/18 05:25 05:25 WBC 14.6 H RBC 3.71 L Hgb 10.5 L Hct 32.4 L MCV 87.3 MCH 28.3 MCHC 32.4 RDW 15.7 H RDW Differential 50.4 H Plt Count 303 MPV 12.4 H Immature Gran % (Auto) 0.300 Neut % (Auto) 57.2 Lymph % (Auto) 16.0 L [place] % (Auto) 8.4 Eos % (Auto) 18.0 H Baso % (Auto) 0.1 Absolute Neuts (auto) 8.4 H Absolute Lymphs (auto) 2.33 Total Counted Pending Sodium 137 Potassium 4.9 Chloride 109 H Carbon Dioxide 18.0 L Anion Gap 10 BUN 96 H Creatinine 7.29 H Estim Creat Clear Calc 11.38 Est GFR (MDRD) Af Amer 10 L Est GFR (MDRD) Non-Af 8 L BUN/Creatinine Ratio 13.2 Glucose 263 H Lactic Acid Calcium 8.5 Phosphorus 6.0 H Magnesium 1.5 L Total Bilirubin 0.30 AST 8 L ALT 21 Alkaline Phosphatase 140 H Total Protein 6.6 Albumin 3.1 L Globulin 3.5 Albumin/Globulin Ratio 0.9 Lipase Urine Color Urine Clarity Urine pH Ur Specific [place] Urine Protein Urine Glucose (UA) Urine Ketones Urine Occult Blood Urine Nitrite Urine Bilirubin Urine Urobilinogen Ur Leukocyte Esterase Urine RBC Urine WBC Ur Squamous Epith Cells Urine Bacteria Urine Mucus Ur Random Sodium Urine Creatinine POC Glucose 05/31/18 05/30/18 05:15 23:07 POC Glucose 250 H 167 H Medical Necessity - Tobacco Use Smoking Status: Current some day smoker Assessment/Plan All Active Problems (Last Reviewed 04/21/18 @ 09:45 by Yaquelin Simpson) Clostridium difficile colitis (Acute) Gastroenteritis (Acute) NICK (acute kidney injury) (Acute) Hyperkalemia (Acute) Acute renal failure superimposed on stage 4 chronic kidney disease (Acute) Metabolic acidosis (Acute) Acute exacerbation of chronic obstructive pulmonary disease (COPD) (Resolved) Acute respiratory failure with hypoxemia (Resolved) Benign neoplasm of right lung (Resolved) Influenza B (Resolved) Lower GI bleed (Resolved) Severe sepsis (Resolved) Streptococcal pneumonia (Resolved) Urinary retention due to benign prostatic hyperplasia (Resolved) Days #2 Metronidazole and Vancomycin Impressions 1. Acute renal failure on chronic renal failure stage IV 2. Severe dehydration 3. Hyperkalemia - resolved 4. C. DIFF enterocolitis 5. Diabetes mellitus type 2 6. Hypertension 7. Hyperlipidemia 8. Coronary artery disease with history of CABG and PCI 9. Stage III severe COPD 9. Chronic respiratory failure with hypoxemia 10. Anemia of chronic renal failure and iron deficiency 11. History of right lower lobe lobectomy for a benign tumor 12. Peripheral vascular disease 13. Vitamin D deficiency 14. Obstructive sleep apnea 15. Gout 16. Colon cancer with subtotal colectomy at the [facility] in the fall 2017 17. Hematochezia secondary to hemorrhoidal disease 18. BP 19. hypovolemic shock +/- septic shock due to C DIFF 20. hypomagnesemia continue the Vanco and the Flagyl KUB now continue the bicarb infusion 1 L NS bolus now Wean the levophed as the BP tolerates....maintain the MAP at at least 65 recheck Lab in the AM Add basal Lantus and increase the SSI to med-high May have sips of clears......if diarrhea increases will go back to NPO appreciate Dr. Magana's and Dr. Barlow's assistance Supplement the magnesium Code Visit Inpatient E&M: [id number] [facility] L3
[2018-05-31] MEDS: 0.9% NaCl Peripheral Flush Adult/Peds IV (07:20)
--- NOTE | 2018-05-31 08:16 | RAD_ITS ---
STUDY: X-RAY - ABDOMEN/PELVIS REASON FOR EXAM: Male, 62 years old. Abdominal distention TECHNIQUE: Supine abdomen COMPARISON: CT 05/12/2018 chest x-ray from yesterday FINDINGS: Mild right pleural thickening similar since yesterday x-ray. Mildly prominent loops of small bowel right lower abdomen is identified with diameter measuring less than 3 cm. Some colonic gas is seen, but not distally. There is no demonstrated free abdominal air. The visualized liver, spleen and kidneys are grossly normal in size and morphology. Normal soft tissue structures. Normal visualized osseous structures. RAD/Abdomen Single View (Portable) IMPRESSION: 1. Nonobstructive bowel gas pattern. Possible mild ileus. Electronically Signed: Yves Lamb MD at 10:22 EDT , Service support ,
[2018-05-31] MEDS: 0.9% Normal Saline 1,000 ML 999 ML IV (08:41)
--- NOTE | 2018-05-31 09:03 | PCM.PN.REN ---
Patient Problems: Active and Suspected Problems (Last Reviewed 04/21/18 @ 09:45 by Yaquelin Simpson) Clostridium difficile colitis (Acute) Subjective: diarrhea improving, urine output increased with mendoza. Stool volumes not measured. Started on pressors last night. Continues with fluid bolus with bicarb drip. Denies nausea, vomiting, or abdominal pain. WBC improving on antibiotics. - Physical Exam General: Alert, Oriented x3, Cooperative, No apparent distress HEENT: PERRLA, EOMI Oral: Dry Mucosa Neck: Supple Lungs: Clear to auscultation Cardiovascular: Tachycardic Abdomen: Bowel Sounds Present, Soft, Non Tender, Non-Distended Extremities: No edema Skin: No rashes Musculoskeletal: No Muscle Wasting Psych/Mental Status: Normal Affect, Appropriate, Alert and oriented to time, place, person, mood and affect Vital Signs Temp Pulse Resp BP Pulse Ox 98.3 F 100 12 103/54 L 95 05/31/18 05:00 05/31/18 08:50 05/31/18 08:00 05/31/18 08:50 05/31/18 08:00 Oxygen Flow Rate (L/min) 1 Oxygen Delivery Method Room Air Weight: 97.4 kg Body Mass Index (BMI) 28.8 Intake and Output for Last 24 Hours 05/29/18 05/30/18 05/31/18 23:59 23:59 23:59 Intake Total 3006 / 3006 1444.7 / 1444.7 Output Total 150 / 150 150 / 150 Balance 2856 / 2856 1294.7 / 1294.7 Microbiology Past 72 Hours 05/30/18 16:30 C. difficile DNA Amplification - Final Stool Toxigenic C. difficile DNA Laboratory Tests Past 24 Hrs 05/30/18 05/30/18 05/30/18 11:10 11:10 11:10 WBC 21.1 H RBC 4.83 Hgb 13.9 Hct 43.1 MCV 89.2 MCH 28.8 MCHC 32.3 RDW 16.0 H RDW Differential 51.5 H Plt Count 347 MPV 12.7 H Immature Gran % (Auto) 0.400 Neut % (Auto) 82.5 H Lymph % (Auto) 7.7 L [place] % (Auto) 3.6 Eos % (Auto) 5.7 H Baso % (Auto) 0.1 Absolute Neuts (auto) 17.4 H Absolute Lymphs (auto) 1.62 Total Counted Not Reportable Sodium 133 L Potassium 7.2 H* Chloride 110 H Carbon Dioxide 11.0 L Anion Gap 12 BUN 94 H Creatinine 7.68 H* Estim Creat Clear Calc 10.81 Est GFR (MDRD) Af Amer 9 L Est GFR (MDRD) Non-Af 8 L BUN/Creatinine Ratio 12.2 Glucose 178 H Lactic Acid 2.6 H Calcium 10.3 H Phosphorus Magnesium Total Bilirubin 0.30 AST 16 ALT 30 Alkaline Phosphatase 196 H Total Protein 9.4 H Albumin 4.5 Globulin 4.9 H Albumin/Globulin Ratio 0.9 Lipase 264 Urine Color Urine Clarity Urine pH Ur Specific [place] Urine Protein Urine Glucose (UA) Urine Ketones Urine Occult Blood Urine Nitrite Urine Bilirubin Urine Urobilinogen Ur Leukocyte Esterase Urine RBC Urine WBC Ur Squamous Epith Cells Urine Bacteria Urine Mucus Ur Random Sodium Urine Creatinine 05/30/18 05/30/18 05/30/18 16:45 20:10 21:25 WBC RBC Hgb Hct MCV MCH MCHC RDW RDW Differential Plt Count MPV Immature Gran % (Auto) Neut % (Auto) Lymph % (Auto) [place] % (Auto) Eos % (Auto) Baso % (Auto) Absolute Neuts (auto) Absolute Lymphs (auto) Total Counted Sodium 132 L 132 L Potassium 7.4 H* 6.5 H* Chloride 112 H 111 H Carbon Dioxide 13.0 L 13.0 L Anion Gap 7 8 BUN 96 H 101 H* Creatinine 7.42 H* 7.62 H* Estim Creat Clear Calc 11.18 10.89 Est GFR (MDRD) Af Amer 10 L 9 L Est GFR (MDRD) Non-Af 8 L 8 L BUN/Creatinine Ratio 12.9 13.3 Glucose 250 H 232 H Lactic Acid Calcium 9.3 9.3 Phosphorus 5.8 H Magnesium 1.7 Total Bilirubin AST ALT Alkaline Phosphatase Total Protein Albumin Globulin Albumin/Globulin Ratio Lipase Urine Color Urine Clarity Urine pH Ur Specific [place] Urine Protein Urine Glucose (UA) Urine Ketones Urine Occult Blood Urine Nitrite Urine Bilirubin Urine Urobilinogen Ur Leukocyte Esterase Urine RBC Urine WBC Ur Squamous Epith Cells Urine Bacteria Urine Mucus Ur Random Sodium Urine Creatinine 215.00 05/30/18 05/30/18 05/31/18 21:25 21:25 00:10 WBC RBC Hgb Hct MCV MCH MCHC RDW RDW Differential Plt Count MPV Immature Gran % (Auto) Neut % (Auto) Lymph % (Auto) [place] % (Auto) Eos % (Auto) Baso % (Auto) Absolute Neuts (auto) Absolute Lymphs (auto) Total Counted Sodium 134 L Potassium 5.4 H Chloride 111 H Carbon Dioxide 15.0 L Anion Gap 8 BUN 101 H* Creatinine 7.54 H* Estim Creat Clear Calc 11.01 Est GFR (MDRD) Af Amer 9 L Est GFR (MDRD) Non-Af 8 L BUN/Creatinine Ratio 13.4 Glucose 178 H Lactic Acid Calcium 8.7 Phosphorus Magnesium Total Bilirubin AST ALT Alkaline Phosphatase Total Protein Albumin Globulin Albumin/Globulin Ratio Lipase Urine Color Yellow Urine Clarity Clear Urine pH 5.0 Ur Specific [place] 1.020 Urine Protein 100 H Urine Glucose (UA) 50 H Urine Ketones Negative Urine Occult Blood Negative Urine Nitrite Negative Urine Bilirubin Negative Urine Urobilinogen Normal Ur Leukocyte Esterase 25 H Urine RBC 0 SEEN Urine WBC 0 SEEN Ur Squamous Epith Cells 0 SEEN Urine Bacteria 0 SEEN Urine Mucus 0 SEEN Ur Random Sodium 44 Urine Creatinine 05/31/18 05/31/18 05:25 05:25 WBC 14.6 H RBC 3.71 L Hgb 10.5 L Hct 32.4 L MCV 87.3 MCH 28.3 MCHC 32.4 RDW 15.7 H RDW Differential 50.4 H Plt Count 303 MPV 12.4 H Immature Gran % (Auto) 0.300 Neut % (Auto) 57.2 Lymph % (Auto) 16.0 L [place] % (Auto) 8.4 Eos % (Auto) 18.0 H Baso % (Auto) 0.1 Absolute Neuts (auto) 8.4 H Absolute Lymphs (auto) 2.33 Total Counted Not Reportable Sodium 137 Potassium 4.9 Chloride 109 H Carbon Dioxide 18.0 L Anion Gap 10 BUN 96 H Creatinine 7.29 H Estim Creat Clear Calc 11.38 Est GFR (MDRD) Af Amer 10 L Est GFR (MDRD) Non-Af 8 L BUN/Creatinine Ratio 13.2 Glucose 263 H Lactic Acid Calcium 8.5 Phosphorus 6.0 H Magnesium 1.5 L Total Bilirubin 0.30 AST 8 L ALT 21 Alkaline Phosphatase 140 H Total Protein 6.6 Albumin 3.1 L Globulin 3.5 Albumin/Globulin Ratio 0.9 Lipase Urine Color Urine Clarity Urine pH Ur Specific [place] Urine Protein Urine Glucose (UA) Urine Ketones Urine Occult Blood Urine Nitrite Urine Bilirubin Urine Urobilinogen Ur Leukocyte Esterase Urine RBC Urine WBC Ur Squamous Epith Cells Urine Bacteria Urine Mucus Ur Random Sodium Urine Creatinine POC Glucose 05/31/18 05/30/18 05:15 23:07 POC Glucose 250 H 167 H Medical Necessity - Tobacco Use Smoking Status: Current some day smoker Assessment/Plan All Active Problems (Last Reviewed 04/21/18 @ 09:45 by Yaquelin Simpson) Clostridium difficile colitis (Acute) Gastroenteritis (Acute) NICK (acute kidney injury) (Acute) Hyperkalemia (Acute) Acute renal failure superimposed on stage 4 chronic kidney disease (Acute) Metabolic acidosis (Acute) Acute exacerbation of chronic obstructive pulmonary disease (COPD) (Resolved) Acute respiratory failure with hypoxemia (Resolved) Benign neoplasm of right lung (Resolved) Influenza B (Resolved) Lower GI bleed (Resolved) Severe sepsis (Resolved) Streptococcal pneumonia (Resolved) Urinary retention due to benign prostatic hyperplasia (Resolved) 1. NICK on CKD stage 4 due to gastroenteritis, dehydration, cdiff colitis. Pt with chronic, frequent stools from prior colectomy for cancer. Urine output improving with iv fluids, pressors, fluid boluses prn. Will hold on hemodialysis. Continue with aggressive hydration. Volume status stable. 2. Acute hyperkalemia due to NICK, metabolic acidosis, renal failure resolved with medical mgmt. 3. Cdiff colitis with profuse diarrhea. on po vanco and flagyl iv 4. Shock with lactic acidosis. Hold antihypertensive, imdur 5. Metabolic acidosis due to GI loss, renal failure improved with bicarb drip. May stop bicarb since diarrhea improved and switch to NSS w 6. Sinus tachycardia due to dehydration improving with aggressive hydration DW hospitalist.
[2018-05-31] MEDS: Pantoprazole Sodium 40 MG Tablet PO (09:30)
[2018-05-31] MEDS: Allopurinol 300 MG Tablet PO (09:30)
[2018-05-31] MEDS: Hydrocortisone 25 MG Suppository RECTAL ×2 (09:31→21:24)
[2018-05-31] MEDS: Finasteride 5 MG Tablet PO (09:31)
[2018-05-31] MEDS: 0.9% Normal Saline 1,000 ML 150 ML IV ×2 (09:31→18:10)
[2018-05-31] MEDS: Aspirin 81 MG TAB.CHEW PO (09:31)
[2018-05-31] MEDS: Cilostazol 50 MG Tablet PO ×2 (09:31→21:25)
[2018-05-31 11:46] LABS: Bedside Glucose 233 mg/dL (70-110)
[2018-05-31] MEDS: Tamsulosin HCl 0.4 MG Capsule PO (17:12)
[2018-05-31 17:41] LABS: Bedside Glucose 220 mg/dL (70-110)
[2018-05-31] MEDS: Atorvastatin Calcium 40 MG Tablet PO (21:24)
[2018-06-01] VITALS (56 sets, daily range): BP systolic 80–147; BP diastolic 36–128; PULSE 82–126; RESP 11–23; TEMP 36.5–37.1; O2SAT 90–98
[2018-06-01] MEDS: 0.9% Normal Saline 1,000 ML 150 ML IV ×4 (00:13→21:21)
[2018-06-01 00:26] LABS: Bedside Glucose 142 mg/dL (70-110)
[2018-06-01 04:24] LABS: Hematocrit 28.4 % (40-54); Hemoglobin 9.4 g/dl (13.0-16.5); Mean Corp Hgb Conc 33.1 g/gl (32-36); Mean Corpuscular Hgb 29.3 pg (27.0-32.0); Mean Corpuscular Volume 88.5 fL (80-94); Mean Platelet Vol. 12.1 fl (6.2-12.0); Platelet Count 230 K/mm3 (150-450); RBC Distribution Width CV 14.9 % (11.6-14.6); RBC Distribution Width SD 46.6 fl (35.1-43.9); Red Blood Count 3.21 M/mm3 (4.6-6.2); White Blood Count 11.5 K/mm3 (4.4-11.0)
[2018-06-01 04:35] LABS: Albumin, Serum 2.9 g/dL (3.2-5.0); BUN 79 mg/dL (7-18); BUN/Creat Ratio 16.2 RATIO (10-20); Calcium,Total 8.4 mg/dL (8.5-10.1); Chloride 116 mmol/L (98-107); Creatinine, Serum 4.88 mg/dL (0.70-1.30); EST Glomerular Filtration Rate 13 mL/min (>60); Est Glom Filt Rate - Afr Amer 16 mL/min (>60); Estimated Creatinine Clearance 17.01 ml/min; Glucose 159 mg/dL (74-106); Magnesium 1.9 mg/dL (1.6-2.6); Sodium Level 143 mmol/L (136-145)
[2018-06-01 04:51] LABS: Scan Indicated on CBC? Y/N NO
[2018-06-01] MEDS: Insulin Lispro 100 UNIT/ML INSULN.PEN SC ×4 (05:37→21:25)
[2018-06-01] MEDS: Heparin Injection (Vial) 5,000 UNIT/ML VIAL 5000 UNIT SC ×3 (05:37→21:24)
[2018-06-01 05:56] LABS: Bedside Glucose 156 mg/dL (70-110)
--- NOTE | 2018-06-01 06:57 | PCM.PN.INT ---
Subjective: Patient did okay overnight. Patient does report subjective improvement in overall condition. Patient believes stooling is improving. Patient is still saturating 90% on room air and is requiring Levophed at 5 mcg to maintain blood pressure. Patient denies any change in abdominal pain. General: Alert, Oriented x3, Cooperative, No apparent distress, Well developed, Well nourished, - - No conversational dyspnea appreciated. HEENT: Atraumatic, PERRLA, EOMI, Normocephalic, - - No scleral icterus or injection noted. Oral: Moist Mucosa, No Gingival or Mucosal Lesions/ Ulcerations Neck: Supple, No JVD, No Nodes, Trachea Midline Lungs: No rhonchi, No wheeze, No rales, Diminished, - - Fair effort. Symmetric expansion. Cardiovascular: Normal S1, Normal S2, No murmurs, No rub noted, No Gallop, Tachycardic Abdomen: Bowel Sounds Present, Soft, Non Tender, Non-Distended, Obese Extremities: No clubbing, No cyanosis, Edema - Trace Skin: No rashes, No breakdown Musculoskeletal: No Tenderness to Palpation of Joints or Extremities Lymphatic: No Cervical, Supraclavicular, or Inguinal Adenopathy Neurological: Cranial nerves II-XII grossly intact, Neuro grossly intact, Motor Exam 5/5 strength throughout Psych/Mental Status: Alert and oriented to time, place, person, mood and affect Vital Signs Temp Pulse Resp BP Pulse Ox 36.6 C 94 14 108/53 L 98 06/01/18 04:00 06/01/18 06:00 06/01/18 06:00 06/01/18 06:00 06/01/18 06:00 Oxygen Flow Rate (L/min) 1 Oxygen Delivery Method Room Air Weight: 99.6 kg Body Mass Index (BMI) 28.8 Intake and Output for Last 24 Hours 05/30/18 05/31/18 06/01/18 23:59 23:59 23:59 Intake Total 3006 / 3006 6602.6 / 6602.6 1032.1 / 1032.1 Output Total 150 / 150 2200 / 2200 1200 / 1200 Balance 2856 / 2856 4402.6 / 4402.6 -167.9 / -167.9 Labs (Last 48 Hours) 05/30/18 05/30/18 05/30/18 11:10 11:10 11:10 WBC 21.1 H RBC 4.83 Hgb 13.9 Hct 43.1 MCV 89.2 MCH 28.8 MCHC 32.3 RDW 16.0 H RDW Differential 51.5 H Plt Count 347 MPV 12.7 H Immature Gran % (Auto) 0.400 Neut % (Auto) 82.5 H Lymph % (Auto) 7.7 L [place] % (Auto) 3.6 Eos % (Auto) 5.7 H Baso % (Auto) 0.1 Absolute Neuts (auto) 17.4 H Absolute Lymphs (auto) 1.62 Total Counted Not Reportable Sodium 133 L Potassium 7.2 H* Chloride 110 H Carbon Dioxide 11.0 L Anion Gap 12 BUN 94 H Creatinine 7.68 H* Estim Creat Clear Calc 10.81 Est GFR (MDRD) Af Amer 9 L Est GFR (MDRD) Non-Af 8 L BUN/Creatinine Ratio 12.2 Glucose 178 H Lactic Acid 2.6 H Calcium 10.3 H Phosphorus Magnesium Total Bilirubin 0.30 AST 16 ALT 30 Alkaline Phosphatase 196 H Total Protein 9.4 H Albumin 4.5 Globulin 4.9 H Albumin/Globulin Ratio 0.9 Lipase 264 Urine Color Urine Clarity Urine pH Ur Specific [place] Urine Protein Urine Glucose (UA) Urine Ketones Urine Occult Blood Urine Nitrite Urine Bilirubin Urine Urobilinogen Ur Leukocyte Esterase Urine RBC Urine WBC Ur Squamous Epith Cells Urine Bacteria Urine Mucus Ur Random Sodium Urine Creatinine POC Glucose 05/30/18 05/30/18 05/30/18 16:45 20:10 21:25 WBC RBC Hgb Hct MCV MCH MCHC RDW RDW Differential Plt Count MPV Immature Gran % (Auto) Neut % (Auto) Lymph % (Auto) [place] % (Auto) Eos % (Auto) Baso % (Auto) Absolute Neuts (auto) Absolute Lymphs (auto) Total Counted Sodium 132 L 132 L Potassium 7.4 H* 6.5 H* Chloride 112 H 111 H Carbon Dioxide 13.0 L 13.0 L Anion Gap 7 8 BUN 96 H 101 H* Creatinine 7.42 H* 7.62 H* Estim Creat Clear Calc 11.18 10.89 Est GFR (MDRD) Af Amer 10 L 9 L Est GFR (MDRD) Non-Af 8 L 8 L BUN/Creatinine Ratio 12.9 13.3 Glucose 250 H 232 H Lactic Acid Calcium 9.3 9.3 Phosphorus 5.8 H Magnesium 1.7 Total Bilirubin AST ALT Alkaline Phosphatase Total Protein Albumin Globulin Albumin/Globulin Ratio Lipase Urine Color Urine Clarity Urine pH Ur Specific [place] Urine Protein Urine Glucose (UA) Urine Ketones Urine Occult Blood Urine Nitrite Urine Bilirubin Urine Urobilinogen Ur Leukocyte Esterase Urine RBC Urine WBC Ur Squamous Epith Cells Urine Bacteria Urine Mucus Ur Random Sodium Urine Creatinine 215.00 POC Glucose 05/30/18 05/30/18 05/30/18 21:25 21:25 23:07 WBC RBC Hgb Hct MCV MCH MCHC RDW RDW Differential Plt Count MPV Immature Gran % (Auto) Neut % (Auto) Lymph % (Auto) [place] % (Auto) Eos % (Auto) Baso % (Auto) Absolute Neuts (auto) Absolute Lymphs (auto) Total Counted Sodium Potassium Chloride Carbon Dioxide Anion Gap BUN Creatinine Estim Creat Clear Calc Est GFR (MDRD) Af Amer Est GFR (MDRD) Non-Af BUN/Creatinine Ratio Glucose Lactic Acid Calcium Phosphorus Magnesium Total Bilirubin AST ALT Alkaline Phosphatase Total Protein Albumin Globulin Albumin/Globulin Ratio Lipase Urine Color Yellow Urine Clarity Clear Urine pH 5.0 Ur Specific [place] 1.020 Urine Protein 100 H Urine Glucose (UA) 50 H Urine Ketones Negative Urine Occult Blood Negative Urine Nitrite Negative Urine Bilirubin Negative Urine Urobilinogen Normal Ur Leukocyte Esterase 25 H Urine RBC 0 SEEN Urine WBC 0 SEEN Ur Squamous Epith Cells 0 SEEN Urine Bacteria 0 SEEN Urine Mucus 0 SEEN Ur Random Sodium 44 Urine Creatinine POC Glucose 167 H 05/31/18 05/31/18 05/31/18 00:10 05:15 05:25 WBC 14.6 H RBC 3.71 L Hgb 10.5 L Hct 32.4 L MCV 87.3 MCH 28.3 MCHC 32.4 RDW 15.7 H RDW Differential 50.4 H Plt Count 303 MPV 12.4 H Immature Gran % (Auto) 0.300 Neut % (Auto) 57.2 Lymph % (Auto) 16.0 L [place] % (Auto) 8.4 Eos % (Auto) 18.0 H Baso % (Auto) 0.1 Absolute Neuts (auto) 8.4 H Absolute Lymphs (auto) 2.33 Total Counted Not Reportable Sodium 134 L Potassium 5.4 H Chloride 111 H Carbon Dioxide 15.0 L Anion Gap 8 BUN 101 H* Creatinine 7.54 H* Estim Creat Clear Calc 11.01 Est GFR (MDRD) Af Amer 9 L Est GFR (MDRD) Non-Af 8 L BUN/Creatinine Ratio 13.4 Glucose 178 H Lactic Acid Calcium 8.7 Phosphorus Magnesium Total Bilirubin AST ALT Alkaline Phosphatase Total Protein Albumin Globulin Albumin/Globulin Ratio Lipase Urine Color Urine Clarity Urine pH Ur Specific [place] Urine Protein Urine Glucose (UA) Urine Ketones Urine Occult Blood Urine Nitrite Urine Bilirubin Urine Urobilinogen Ur Leukocyte Esterase Urine RBC Urine WBC Ur Squamous Epith Cells Urine Bacteria Urine Mucus Ur Random Sodium Urine Creatinine POC Glucose 250 H 05/31/18 05/31/18 05/31/18 05:25 11:34 17:11 WBC RBC Hgb Hct MCV MCH MCHC RDW RDW Differential Plt Count MPV Immature Gran % (Auto) Neut % (Auto) Lymph % (Auto) [place] % (Auto) Eos % (Auto) Baso % (Auto) Absolute Neuts (auto) Absolute Lymphs (auto) Total Counted Sodium 137 Potassium 4.9 Chloride 109 H Carbon Dioxide 18.0 L Anion Gap 10 BUN 96 H Creatinine 7.29 H Estim Creat Clear Calc 11.38 Est GFR (MDRD) Af Amer 10 L Est GFR (MDRD) Non-Af 8 L BUN/Creatinine Ratio 13.2 Glucose 263 H Lactic Acid Calcium 8.5 Phosphorus 6.0 H Magnesium 1.5 L Total Bilirubin 0.30 AST 8 L ALT 21 Alkaline Phosphatase 140 H Total Protein 6.6 Albumin 3.1 L Globulin 3.5 Albumin/Globulin Ratio 0.9 Lipase Urine Color Urine Clarity Urine pH Ur Specific [place] Urine Protein Urine Glucose (UA) Urine Ketones Urine Occult Blood Urine Nitrite Urine Bilirubin Urine Urobilinogen Ur Leukocyte Esterase Urine RBC Urine WBC Ur Squamous Epith Cells Urine Bacteria Urine Mucus Ur Random Sodium Urine Creatinine POC Glucose 233 H 220 H 06/01/18 06/01/18 06/01/18 00:11 04:10 04:10 WBC 11.5 H RBC 3.21 L Hgb 9.4 L Hct 28.4 L MCV 88.5 MCH 29.3 MCHC 33.1 RDW 14.9 H RDW Differential 46.6 H Plt Count 230 MPV 12.1 H Immature Gran % (Auto) Neut % (Auto) Lymph % (Auto) [place] % (Auto) Eos % (Auto) Baso % (Auto) Absolute Neuts (auto) Absolute Lymphs (auto) Total Counted Sodium 143 Potassium 5.0 Chloride 116 H Carbon Dioxide 19.0 L Anion Gap BUN 79 H Creatinine 4.88 H Estim Creat Clear Calc 17.01 Est GFR (MDRD) Af Amer 16 L Est GFR (MDRD) Non-Af 13 L BUN/Creatinine Ratio 16.2 Glucose 159 H Lactic Acid Calcium 8.4 L Phosphorus 5.0 H Magnesium 1.9 Total Bilirubin AST ALT Alkaline Phosphatase Total Protein Albumin 2.9 L Globulin Albumin/Globulin Ratio Lipase Urine Color Urine Clarity Urine pH Ur Specific [place] Urine Protein Urine Glucose (UA) Urine Ketones Urine Occult Blood Urine Nitrite Urine Bilirubin Urine Urobilinogen Ur Leukocyte Esterase Urine RBC Urine WBC Ur Squamous Epith Cells Urine Bacteria Urine Mucus Ur Random Sodium Urine Creatinine POC Glucose 142 H 06/01/18 05:36 WBC RBC Hgb Hct MCV MCH MCHC RDW RDW Differential Plt Count MPV Immature Gran % (Auto) Neut % (Auto) Lymph % (Auto) [place] % (Auto) Eos % (Auto) Baso % (Auto) Absolute Neuts (auto) Absolute Lymphs (auto) Total Counted Sodium Potassium Chloride Carbon Dioxide Anion Gap BUN Creatinine Estim Creat Clear Calc Est GFR (MDRD) Af Amer Est GFR (MDRD) Non-Af BUN/Creatinine Ratio Glucose Lactic Acid Calcium Phosphorus Magnesium Total Bilirubin AST ALT Alkaline Phosphatase Total Protein Albumin Globulin Albumin/Globulin Ratio Lipase Urine Color Urine Clarity Urine pH Ur Specific [place] Urine Protein Urine Glucose (UA) Urine Ketones Urine Occult Blood Urine Nitrite Urine Bilirubin Urine Urobilinogen Ur Leukocyte Esterase Urine RBC Urine WBC Ur Squamous Epith Cells Urine Bacteria Urine Mucus Ur Random Sodium Urine Creatinine POC Glucose 156 H Microbiology 05/30/18 18:55 Stool Enteric Bacteriology - Final 05/30/18 16:30 Stool C. difficile DNA Amplification - Final Toxigenic C. difficile DNA Clinical Impression(s) from Imaging Studies [facility] X-Ray 05/31/18 08:16 IMPRESSION: 1. Nonobstructive bowel gas pattern. Possible mild ileus. Electronically Signed: Yves Lamb MD at 10:22 EDT , Service support , Medical Necessity - Tobacco Use Smoking Status: Current some day smoker Assessment/Plan All Active Problems (Last Reviewed 04/21/18 @ 09:45 by Yaquelin Simpson) Clostridium difficile colitis (Acute) Gastroenteritis (Acute) NICK (acute kidney injury) (Acute) Hyperkalemia (Acute) Acute renal failure superimposed on stage 4 chronic kidney disease (Acute) Metabolic acidosis (Acute) Acute exacerbation of chronic obstructive pulmonary disease (COPD) (Resolved) Acute respiratory failure with hypoxemia (Resolved) Benign neoplasm of right lung (Resolved) Influenza B (Resolved) Lower GI bleed (Resolved) Severe sepsis (Resolved) Streptococcal pneumonia (Resolved) Urinary retention due to benign prostatic hyperplasia (Resolved) RECOMMENDATIONS: 1. Continue antibiotics as ordered. 2. Continue vasopressor support to maintain a mean arterial pressure at or above 65 mmHg. Wean as tolerated 3. Defer to nephrology for discontinuation of bicarbonate. 4. Continue scheduled bronchodilators. 5. Encourage incentive spirometer use and mobilize patient as tolerated. IMPRESSIONS: 1. Septic shock secondary to C. difficile colitis The patient is currently receiving supplemental IV fluids per nephrology recommendations. Recommend continuing Levophed to maintain a mean arterial pressure at or above 65 mmHg. Continue antimicrobials as ordered. Patient appears to be responding to therapy. Hopefully wean off of Levophed later today. 2. Acute on chronic kidney disease Likely exacerbated by the patient's hypotension and intravascular volume status. Continue supportive measures as noted above. Defer timing of need for hemodialysis and cessation of bicarbonate drip to nephrology. 3. Baseline COPD without exacerbation Continue bronchodilators as ordered. Encourage incentive spirometer use and mobilize patient as tolerated. Patient does not appear to be in exacerbation at this time. Therapeutic substitution for home medications has been ordered. 4. Known history of obstructive sleep apnea While the patient has known obstructive sleep apnea, he has been and continues to be noncompliant with the use of nocturnal Pap therapy. This may account for some of patient's nocturnal decrease in saturations 5. Hypertension/hyperlipidemia/gout/pulmonary nodule/tobacco dependency in remission/coronary artery disease status post CABG/history of colon cancer Complicates care, management, recovery and prognosis. Continue to hold home antihypertensive regimen. TIME: 33 minutes of critical care time, independent of procedures, was spent addressing the patient's septic shock secondary to C. difficile colitis, acute on chronic kidney disease, COPD, obstructive sleep apnea, review of all data and collaboration with the care team. (5:45 AM to 6:45 AM) Code Visit 9xxxx: [id number] Critical care first hour
[2018-06-01] MEDS: Budesonide Respules 0.5 MG/2 ML AMPUL.NEB. INHALATION (07:34)
[2018-06-01] MEDS: Albuterol 2.5 MG/3 ML VIAL.NEB. INHALATION ×3 (07:34→16:00)
[2018-06-01] MEDS: Aspirin 81 MG TAB.CHEW PO (09:29)
[2018-06-01] MEDS: Allopurinol 300 MG Tablet PO (09:29)
[2018-06-01] MEDS: Pantoprazole Sodium 40 MG Tablet PO (09:29)
[2018-06-01] MEDS: Cilostazol 50 MG Tablet PO ×2 (09:29→21:24)
[2018-06-01] MEDS: Hydrocortisone 25 MG Suppository RECTAL ×2 (09:30→21:42)
[2018-06-01] MEDS: Finasteride 5 MG Tablet PO (09:30)
--- NOTE | 2018-06-01 10:31 | PCM.PN.HOSP ---
Patient Problems: Active and Suspected Problems (Last Reviewed 04/21/18 @ 09:45 by Yaquelin Simpson) Clostridium difficile colitis (Acute) Subjective: Stool firming up. Feels good otherwise. Vitals/I&O's: Vital Signs Temp Pulse Resp BP Pulse Ox 36.5 C L 92 13 122/65 H 94 06/01/18 08:00 06/01/18 10:00 06/01/18 10:00 06/01/18 10:00 06/01/18 10:00 Oxygen Flow Rate (L/min) 1 Oxygen Delivery Method Room Air Weight: 99.6 kg Body Mass Index (BMI) 28.8 Intake and Output for Last 24 Hours 05/30/18 05/31/18 06/01/18 23:59 23:59 23:59 Intake Total 3006 / 3006 6602.6 / 6602.6 1032.1 / 1032.1 Output Total 150 / 150 2200 / 2200 1200 / 1200 Balance 2856 / 2856 4402.6 / 4402.6 -167.9 / -167.9 General: Alert, No apparent distress HEENT: Atraumatic, Normocephalic Oral: Moist Mucosa, No Gingival or Mucosal Lesions/ Ulcerations Neck: No Nodes, Thyroid Normal Size and Texture Lungs: Clear to auscultation, Normal air movement, No rhonchi, No wheeze Cardiovascular: Regular rate, Regular Rhythm, Normal S1, Normal S2, No murmurs Abdomen: Bowel Sounds Present, Soft, Non Tender, Non-Distended, No Hepato-splenomegaly Extremities: No edema, No Calf Tenderness Skin: No rashes, No breakdown Psych/Mental Status: Normal Affect, Appropriate Microbiology Past 72 Hours 05/30/18 18:55 Stool Enteric Bacteriology - Final 05/30/18 16:30 Stool C. difficile DNA Amplification - Final Toxigenic C. difficile DNA Laboratory Results 05/31/18 11:34: POC Glucose 233 H 05/31/18 17:11: POC Glucose 220 H 06/01/18 00:11: POC Glucose 142 H 06/01/18 04:10: WBC 11.5 H, RBC 3.21 L, Hgb 9.4 L, Hct 28.4 L, MCV 88.5, MCH 29.3, MCHC 33.1, RDW 14.9 H, RDW Differential 46.6 H, Plt Count 230, MPV 12.1 H 06/01/18 04:10: Sodium 143, Potassium 5.0, Chloride 116 H, Carbon Dioxide 19.0 L, BUN 79 H, Creatinine 4.88 H, Estim Creat Clear Calc 17.01, Est GFR (MDRD) Af Amer 16 L, Est GFR (MDRD) Non-Af 13 L, BUN/Creatinine Ratio 16.2, Glucose 159 H, Calcium 8.4 L, Phosphorus 5.0 H, Magnesium 1.9, Albumin 2.9 L 06/01/18 05:36: POC Glucose 156 H Current Medications Acetaminophen (Tylenol) 650 mg PO Q4H PRN PRN PRN Reason: PAIN Albuterol Sulfate (Ventolin Aerosols) 2.5 mg INHALATION Q4HWA.RT [facility] Last Admin: 06/01/18 07:34 Dose: 2.5 mg Allopurinol (Zyloprim) 300 mg PO DAILY [facility] Last Admin: 06/01/18 09:29 Dose: 300 mg Aspirin (Aspirin, Baby) 81 mg PO DAILY [facility] Last Admin: 06/01/18 09:29 Dose: 81 mg Atorvastatin Calcium (Lipitor) 40 mg PO QHS [facility] Last Admin: 05/31/18 21:24 Dose: 40 mg Budesonide (Pulmicort Aerosol) 0.5 mg INHALATION BID.RT [facility] Last Admin: 06/01/18 07:34 Dose: 0.5 mg Cilostazol (Pletal) 50 mg PO BID [facility] Last Admin: 06/01/18 09:29 Dose: 50 mg Colchicine (Colchicine) 0.6 mg PO TID PRN PRN PRN Reason: GOUT Dextrose (D50w Syringe) 0 gm IV X1 PRN; Protocol PRN Reason: Hypoglycemia Diazepam (Valium) 5 mg PO DAILY PRN PRN Reason: ANXIETY Ergocalciferol (Vitamin D) 50,000 unit PO Q14D [facility] Finasteride (Proscar) 5 mg PO DAILY [facility] Last Admin: 06/01/18 09:30 Dose: 5 mg Glucagon () 1 mg IM .X1 PRN PRN Reason: Hypoglycemia Heparin Sodium (Porcine) (Heparin Na) 5,000 unit SC Q8 [facility] Last Admin: 06/01/18 05:37 Dose: 5,000 unit Hydrocortisone Acetate (Anusol Hc) 25 mg RECTAL BID [facility] Last Admin: 06/01/18 09:30 Dose: 25 mg Sodium Chloride () 250 mls @ 15 mls/hr IV .[id number] PRN PRN Reason: SALINE FLUSH Metronidazole (Flagyl) 500 mg in 100 mls @ 100 mls/hr IV Q8 [facility] Last Admin: 06/01/18 05:37 Dose: 100 mls/hr Sodium Chloride () 1,000 mls @ 150 mls/hr IV .[id number] [facility] Last Admin: 06/01/18 07:51 Dose: 150 mls/hr Norepinephrine Bitartrate 8 mg (/ Dextrose) 258 mls @ 9.68 mls/hr IV .[id number] [facility]; Protocol Last Admin: 06/01/18 04:32 Dose: Not Given Insulin Glargine (Lantus (Bk)) 6 units SC 0600 [facility] Last Admin: 06/01/18 05:36 Dose: 6 u Insulin Human Lispro (Humalog Kwikpen ([facility])) 0 unit SC Q6 [facility]; Protocol Last Admin: 06/01/18 05:37 Dose: 2 u Nitroglycerin (Nitrostat) 0.4 mg SUBLINGUAL Q5M PRN PRN Reason: Chest Pain Oxycodone HCl (Oxyir) 5 mg PO Q6H PRN PRN Reason: PAIN Pantoprazole Sodium (Protonix) 40 mg PO DAILY [facility] Last Admin: 06/01/18 09:29 Dose: 40 mg Sodium Chloride () 5 - 15 ml IV UD PRN PRN Reason: SALINE FLUSH Last Admin: 05/31/18 07:20 Dose: 10 ml Tamsulosin HCl (Flomax) 0.4 mg PO DAILY@1730 [facility] Last Admin: 05/31/18 17:12 Dose: 0.4 mg Vancomycin HCl () 125 mg PO Q6 [facility] Last Admin: 06/01/18 05:37 Dose: 125 mg Medical Necessity - Tobacco Use Smoking Status: Current some day smoker Assessment/Plan All Active Problems (Last Reviewed 04/21/18 @ 09:45 by Yaquelin Simpson) Clostridium difficile colitis (Acute) Gastroenteritis (Acute) NICK (acute kidney injury) (Acute) Hyperkalemia (Acute) Acute renal failure superimposed on stage 4 chronic kidney disease (Acute) Metabolic acidosis (Acute) Acute exacerbation of chronic obstructive pulmonary disease (COPD) (Resolved) Acute respiratory failure with hypoxemia (Resolved) Benign neoplasm of right lung (Resolved) Influenza B (Resolved) Lower GI bleed (Resolved) Severe sepsis (Resolved) Streptococcal pneumonia (Resolved) Urinary retention due to benign prostatic hyperplasia (Resolved) 1. Septic shock: POA. 2/2 C.diff. improving. Still on Levophed, though is being titrated down. 2. C. diff colitis: improving. On PO vanc and IV flagyl. Upon discharge: Vanc 125 QID for 10 days. Advance diet. 3. NICK: on CKD. Improved today to 4.88 (from 7.29). Baseline is around 3. Likely prerenal and ATN. Continue IVF. Nephrology following. 4. Hyperkalemia: improved. 2/2 NICK. 5. DVT proph: SQ heparin. Code Visit Inpatient E&M: [id number] Subs Hosp L2
--- NOTE | 2018-06-01 10:37 | PN_ITS ---
Patient Problems: Active and Suspected Problems (Last Reviewed 04/21/18 @ 09:45 by Yaquelin Simpson) Clostridium difficile colitis (Acute) Subjective: Stool firming up. Feels good otherwise. Vitals/I&O's: Vital Signs Temp Pulse Resp BP Pulse Ox 36.5 C L 92 13 122/65 H 94 06/01/18 08:00 06/01/18 10:00 06/01/18 10:00 06/01/18 10:00 06/01/18 10:00 Oxygen Flow Rate (L/min) 1 Oxygen Delivery Method Room Air Weight: 99.6 kg Body Mass Index (BMI) 28.8 Intake and Output for Last 24 Hours 05/30/18 05/31/18 06/01/18 23:59 23:59 23:59 Intake Total 3006 / 3006 6602.6 / 6602.6 1032.1 / 1032.1 Output Total 150 / 150 2200 / 2200 1200 / 1200 Balance 2856 / 2856 4402.6 / 4402.6 -167.9 / -167.9 General: Alert, No apparent distress HEENT: Atraumatic, Normocephalic Oral: Moist Mucosa, No Gingival or Mucosal Lesions/ Ulcerations Neck: No Nodes, Thyroid Normal Size and Texture Lungs: Clear to auscultation, Normal air movement, No rhonchi, No wheeze Cardiovascular: Regular rate, Regular Rhythm, Normal S1, Normal S2, No murmurs Abdomen: Bowel Sounds Present, Soft, Non Tender, Non-Distended, No Hepato- splenomegaly Extremities: No edema, No Calf Tenderness Skin: No rashes, No breakdown Psych/Mental Status: Normal Affect, Appropriate Microbiology Past 72 Hours 05/30/18 18:55 Stool Enteric Bacteriology - Final 05/30/18 16:30 Stool C. difficile DNA Amplification - Final Toxigenic C. difficile DNA Laboratory Results 05/31/18 11:34: POC Glucose 233 H 05/31/18 17:11: POC Glucose 220 H 06/01/18 00:11: POC Glucose 142 H 06/01/18 04:10: WBC 11.5 H, RBC 3.21 L, Hgb 9.4 L, Hct 28.4 L, MCV 88.5, MCH 29.3, MCHC 33.1, RDW 14.9 H, RDW Differential 46.6 H, Plt Count 230, MPV 12.1 H 06/01/18 04:10: Sodium 143, Potassium 5.0, Chloride 116 H, Carbon Dioxide 19.0 L , BUN 79 H, Creatinine 4.88 H, Estim Creat Clear Calc 17.01, Est GFR (MDRD) Af Amer 16 L, Est GFR (MDRD) Non-Af 13 L, BUN/Creatinine Ratio 16.2, Glucose 159 H, Calcium 8.4 L, Phosphorus 5.0 H, Magnesium 1.9, Albumin 2.9 L 06/01/18 05:36: POC Glucose 156 H Current Medications Acetaminophen (Tylenol) 650 mg PO Q4H PRN PRN PRN Reason: PAIN Albuterol Sulfate (Ventolin Aerosols) 2.5 mg INHALATION Q4HWA.RT [facility] Last Admin: 06/01/18 07:34 Dose: 2.5 mg Allopurinol (Zyloprim) 300 mg PO DAILY [facility] Last Admin: 06/01/18 09:29 Dose: 300 mg Aspirin (Aspirin, Baby) 81 mg PO DAILY [facility] Last Admin: 06/01/18 09:29 Dose: 81 mg Atorvastatin Calcium (Lipitor) 40 mg PO QHS [facility] Last Admin: 05/31/18 21:24 Dose: 40 mg Budesonide (Pulmicort Aerosol) 0.5 mg INHALATION BID.RT [facility] Last Admin: 06/01/18 07:34 Dose: 0.5 mg Cilostazol (Pletal) 50 mg PO BID [facility] Last Admin: 06/01/18 09:29 Dose: 50 mg Colchicine (Colchicine) 0.6 mg PO TID PRN PRN PRN Reason: GOUT Dextrose (D50w Syringe) 0 gm IV X1 PRN; Protocol PRN Reason: Hypoglycemia Diazepam (Valium) 5 mg PO DAILY PRN PRN Reason: ANXIETY Ergocalciferol (Vitamin D) 50,000 unit PO Q14D [facility] Finasteride (Proscar) 5 mg PO DAILY [facility] Last Admin: 06/01/18 09:30 Dose: 5 mg Glucagon () 1 mg IM .X1 PRN PRN Reason: Hypoglycemia Heparin Sodium (Porcine) (Heparin Na) 5,000 unit SC Q8 [facility] Last Admin: 06/01/18 05:37 Dose: 5,000 unit Hydrocortisone Acetate (Anusol Hc) 25 mg RECTAL BID [facility] Last Admin: 06/01/18 09:30 Dose: 25 mg Sodium Chloride () 250 mls @ 15 mls/hr IV .[id number] PRN PRN Reason: SALINE FLUSH Metronidazole (Flagyl) 500 mg in 100 mls @ 100 mls/hr IV Q8 [facility] Last Admin: 06/01/18 05:37 Dose: 100 mls/hr Sodium Chloride () 1,000 mls @ 150 mls/hr IV .[id number] [facility] Last Admin: 06/01/18 07:51 Dose: 150 mls/hr Norepinephrine Bitartrate 8 mg (/ Dextrose) 258 mls @ 9.68 mls/hr IV .[id number] [facility]; Protocol Last Admin: 06/01/18 04:32 Dose: Not Given Insulin Glargine (Lantus (Bk)) 6 units SC 0600 [facility] Last Admin: 06/01/18 05:36 Dose: 6 u Insulin Human Lispro (Humalog Kwikpen ([facility])) 0 unit SC Q6 [facility]; Protocol Last Admin: 06/01/18 05:37 Dose: 2 u Nitroglycerin (Nitrostat) 0.4 mg SUBLINGUAL Q5M PRN PRN Reason: Chest Pain Oxycodone HCl (Oxyir) 5 mg PO Q6H PRN PRN Reason: PAIN Pantoprazole Sodium (Protonix) 40 mg PO DAILY [facility] Last Admin: 06/01/18 09:29 Dose: 40 mg Sodium Chloride () 5 - 15 ml IV UD PRN PRN Reason: SALINE FLUSH Last Admin: 05/31/18 07:20 Dose: 10 ml Tamsulosin HCl (Flomax) 0.4 mg PO DAILY@1730 [facility] Last Admin: 05/31/18 17:12 Dose: 0.4 mg Vancomycin HCl () 125 mg PO Q6 [facility] Last Admin: 06/01/18 05:37 Dose: 125 mg Medical Necessity - Tobacco Use Smoking Status: Current some day smoker Assessment/Plan All Active Problems (Last Reviewed 04/21/18 @ 09:45 by Yaquelin Simpson) Clostridium difficile colitis (Acute) Gastroenteritis (Acute) NICK (acute kidney injury) (Acute) Hyperkalemia (Acute) Acute renal failure superimposed on stage 4 chronic kidney disease (Acute) Metabolic acidosis (Acute) Acute exacerbation of chronic obstructive pulmonary disease (COPD) (Resolved) Acute respiratory failure with hypoxemia (Resolved) Benign neoplasm of right lung (Resolved) Influenza B (Resolved) Lower GI bleed (Resolved) Severe sepsis (Resolved) Streptococcal pneumonia (Resolved) Urinary retention due to benign prostatic hyperplasia (Resolved) 1. Septic shock: POA. 2/2 C.diff. improving. Still on Levophed, though is being titrated down. 2. C. diff colitis: improving. On PO vanc and IV flagyl. Upon discharge: Vanc 125 QID for 10 days. Advance diet. 3. NICK: on CKD. Improved today to 4.88 (from 7.29). Baseline is around 3. Likely prerenal and ATN. Continue IVF. Nephrology following. 4. Hyperkalemia: improved. 2/2 NICK. 5. DVT proph: SQ heparin. Code Visit Inpatient E&M: 00568 Subs Hosp L2
[2018-06-01 11:25] LABS: Bedside Glucose 190 mg/dL (70-110)
--- NOTE | 2018-06-01 11:57 | CHAPLAIN ---
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
--- NOTE | 2018-06-01 12:18 | CASEMGMT ---
SW spoke w/pt in regard to LW/POA, pt states his and sister are POA. SW asked pt to bring in the papers to the hospital or have family do so. Pt states understanding. BRENT Hernandez, [employer]
[2018-06-01] MEDS: 0.9% NaCl Peripheral Flush Adult/Peds IV (13:29)
--- NOTE | 2018-06-01 13:39 | CASEMGMT ---
DEVEN CM Readmission Note: Previous Admission: 05/12-05/16/18 DC Disposition: Home Present Admission: 05/30/18 DX: Gastroenteritis, NICK, severe dehydration. K 7.4, Carbon dioxide 9.0, Lactic Acid 2.9, WBC 21. To ICU on admission. Requiring Norepi gtt, Kayexalate, IV NS 2L bolus. Presentation: Pt presented from home. Lives in mobile home with , 5 steps to enter. Uses cane. Has Home oxygen, nebulizer through [employer]. Per PT notes, pt was independent prior, now ambulated 20' contact guard. DC Plan: anticipate home on dc with family support.
--- NOTE | 2018-06-01 13:54 | PCM.PN.REN ---
Patient Problems: Active and Suspected Problems (Last Reviewed 04/21/18 @ 09:45 by Yaquelin Simpson) Clostridium difficile colitis (Acute) Subjective: Has formed stools. Denies NV, abdominal pain. Denies SOB. Leukocytosis improving. Remains off pressors. Mildly tachycardic intermittently. Given Rx for imodium as outpt by pcp prior to admit. had appt with dietary today as outpt scheduled prior to admit. will consult now. - Physical Exam General: Alert, Oriented x3, Cooperative Lungs: Clear to auscultation Cardiovascular: Tachycardic Abdomen: Bowel Sounds Present, Soft, Non Tender, Non-Distended Extremities: No edema Skin: No rashes Psych/Mental Status: Alert and oriented to time, place, person, mood and affect Vital Signs Temp Pulse Resp BP Pulse Ox 97.9 F 114 H 15 147/128 H 94 06/01/18 12:00 06/01/18 12:00 06/01/18 12:00 06/01/18 12:00 06/01/18 12:00 Oxygen Flow Rate (L/min) 1 Oxygen Delivery Method Room Air Weight: 99.6 kg Body Mass Index (BMI) 28.8 Intake and Output for Last 24 Hours 05/30/18 05/31/18 06/01/18 23:59 23:59 23:59 Intake Total 3006 / 3006 6602.6 / 6602.6 2543.1 / 2543.1 Output Total 150 / 150 2200 / 2200 2100 / 2100 Balance 2856 / 2856 4402.6 / 4402.6 443.1 / 443.1 Microbiology Past 72 Hours 05/30/18 18:55 Enteric Bacteriology - Final Stool 05/30/18 16:30 C. difficile DNA Amplification - Final Stool Toxigenic C. difficile DNA Laboratory Tests Past 24 Hrs 06/01/18 06/01/18 04:10 04:10 WBC 11.5 H RBC 3.21 L Hgb 9.4 L Hct 28.4 L MCV 88.5 MCH 29.3 MCHC 33.1 RDW 14.9 H RDW Differential 46.6 H Plt Count 230 MPV 12.1 H Sodium 143 Potassium 5.0 Chloride 116 H Carbon Dioxide 19.0 L BUN 79 H Creatinine 4.88 H Estim Creat Clear Calc 17.01 Est GFR (MDRD) Af Amer 16 L Est GFR (MDRD) Non-Af 13 L BUN/Creatinine Ratio 16.2 Glucose 159 H Calcium 8.4 L Phosphorus 5.0 H Magnesium 1.9 Albumin 2.9 L POC Glucose 06/01/18 06/01/18 06/01/18 11:20 05:36 00:11 POC Glucose 190 H 156 H 142 H 05/31/18 17:11 POC Glucose 220 H Medical Necessity - Tobacco Use Smoking Status: Current some day smoker Assessment/Plan All Active Problems (Last Reviewed 04/21/18 @ 09:45 by Yaquelin Simpson) Clostridium difficile colitis (Acute) Gastroenteritis (Acute) NICK (acute kidney injury) (Acute) Hyperkalemia (Acute) Acute renal failure superimposed on stage 4 chronic kidney disease (Acute) Metabolic acidosis (Acute) Acute exacerbation of chronic obstructive pulmonary disease (COPD) (Resolved) Acute respiratory failure with hypoxemia (Resolved) Benign neoplasm of right lung (Resolved) Influenza B (Resolved) Lower GI bleed (Resolved) Severe sepsis (Resolved) Streptococcal pneumonia (Resolved) Urinary retention due to benign prostatic hyperplasia (Resolved) 1. NICK on CKD stage 4 due to gastroenteritis, dehydration, cdiff colitis. Underlying CKD from diabetes. Renal fxn improving with iv hydration. 2. Acute hyperkalemia due to NICK, metabolic acidosis, renal failure resolved with medical mgmt. Dietary consult 3. Cdiff colitis with profuse diarrhea. on po vanco and flagyl iv 4. Shock with lactic acidosis. Off pressors 5. Metabolic acidosis due to GI loss, renal failure improved with bicarb drip. start oral bicarb 6. Sinus tachycardia due to dehydration improving with aggressive hydration DW hospitalist.
[2018-06-01] MEDS: Sodium Bicarbonate 650 MG Tablet PO ×2 (15:11→21:24)
[2018-06-01 17:15] LABS: Bedside Glucose 158 mg/dL (70-110)
[2018-06-01] MEDS: Tamsulosin HCl 0.4 MG Capsule PO (17:24)
[2018-06-01] MEDS: Atorvastatin Calcium 40 MG Tablet PO (21:24)
[2018-06-02] VITALS (17 sets, daily range): BP systolic 103–164; BP diastolic 60–94; PULSE 77–123; RESP 14–24; TEMP 36.6–37.2; O2SAT 90–99
[2018-06-02 00:06] LABS: Bedside Glucose 172 mg/dL (70-110)
[2018-06-02 04:53] LABS: Absolute Lymphocyte Count 1.17 X10^3/ul (0.83-4.51); Absolute Neutrophil Count 4.5 X10^3/uL (2.0-7.7); Basophil# 0.02 X10^3/uL; Basophil% 0.3 % (0-1); Eosinophil# 1.77 X10^3/uL; Eosinophils% 22.6 % (0-5); Hematocrit 26.8 % (40-54); Hemoglobin 8.6 g/dl (13.0-16.5); Lymphocyte # 1.17 X10^3/ul (4.0); Mean Corp Hgb Conc 32.1 g/gl (32-36); Mean Corpuscular Hgb 28.3 pg (27.0-32.0); Mean Corpuscular Volume 88.2 fL (80-94); Mean Platelet Vol. 11.7 fl (6.2-12.0); Monocyte# 0.37 X10^3/uL; Monocyte% 4.7 % (0-10); Neutrophil # 4.47 X10^3/uL (2.7-7.7); Neutrophil % 57.1 % (47-70); Platelet Count 199 K/mm3 (150-450); RBC Distribution Width CV 15.7 % (11.6-14.6); RBC Distribution Width SD 50.6 fl (35.1-43.9); Red Blood Count 3.04 M/mm3 (4.6-6.2); White Blood Count 7.8 K/mm3 (4.4-11.0)
[2018-06-02 04:54] LABS: POSITIVE COUNT NO; POSITIVE DIFFERENTIAL NO; POSITIVE MORPHOLOGY NO
[2018-06-02 05:08] LABS: Anion Gap 7 (5-15); BUN 64 mg/dL (7-18); BUN/Creat Ratio 16.9 RATIO (10-20); Calcium,Total 8.2 mg/dL (8.5-10.1); Chloride 120 mmol/L (98-107); Creatinine, Serum 3.78 mg/dL (0.70-1.30); EST Glomerular Filtration Rate 17 mL/min (>60); Est Glom Filt Rate - Afr Amer 21 mL/min (>60); Estimated Creatinine Clearance 21.95 ml/min; Glucose 169 mg/dL (74-106); Potassium 5.6 mmol/L (3.5-5.1); Sodium Level 145 mmol/L (136-145)
[2018-06-02] MEDS: Insulin Lispro 100 UNIT/ML INSULN.PEN SC ×4 (06:39→21:33)
[2018-06-02] MEDS: Heparin Injection (Vial) 5,000 UNIT/ML VIAL 5000 UNIT SC ×3 (06:40→21:30)
[2018-06-02] MEDS: Sodium Bicarbonate 650 MG Tablet PO ×3 (06:42→21:31)
[2018-06-02] MEDS: Albuterol 2.5 MG/3 ML VIAL.NEB. INHALATION ×2 (07:04→14:00)
[2018-06-02] MEDS: Budesonide Respules 0.5 MG/2 ML AMPUL.NEB. INHALATION (07:04)
--- NOTE | 2018-06-02 07:04 | PN_ITS ---
Subjective: Patient did well overnight. No acute issues were reported. Patient was able to come off of Levophed at approximately 1:30 PM yesterday. Patient remains on room air. Good urine output has been noted. Patient with only one bowel movement overnight. General: Alert, Oriented x3, Cooperative, No apparent distress, Well developed, Well nourished, - - Speaks in full sentences. Obese. HEENT: Atraumatic, PERRLA, EOMI, Normocephalic, - - No scleral icterus or injection noted. Oral: Moist Mucosa, No Gingival or Mucosal Lesions/ Ulcerations Neck: Supple, No JVD, No Nodes, Trachea Midline Lungs: Clear to auscultation, Normal air movement, No rhonchi, No wheeze, No rales, - - Symmetric expansion. No dullness to percussion. Cardiovascular: Normal S1, Normal S2, No murmurs, No rub noted, No Gallop, Tachycardic Abdomen: Bowel Sounds Present, Soft, Non Tender, Non-Distended, Obese Extremities: No clubbing, No cyanosis, Edema - Trace Skin: No rashes, No breakdown Musculoskeletal: No Tenderness to Palpation of Joints or Extremities Lymphatic: No Cervical, Supraclavicular, or Inguinal Adenopathy Neurological: Cranial nerves II-XII grossly intact, Neuro grossly intact, Motor Exam 5/5 strength throughout Psych/Mental Status: Alert and oriented to time, place, person, mood and affect Vital Signs Temp Pulse Resp BP Pulse Ox 37.2 C 123 H 24 H 147/94 H 92 06/02/18 05:00 06/02/18 06:19 06/02/18 06:19 06/02/18 06:19 06/02/18 06:19 Oxygen Flow Rate (L/min) 1 Oxygen Delivery Method Room Air Weight: 101 kg Body Mass Index (BMI) 28.8 Intake and Output for Last 24 Hours 05/31/18 06/01/18 06/02/18 23:59 23:59 23:59 Intake Total 6602.6 / 6602.6 3828.1 / 3828.1 2500 / 2500 Output Total 2200 / 2200 2500 / 2500 1475 / 1475 Balance 4402.6 / 4402.6 1328.1 / 1328.1 1025 / 1025 Labs (Last 48 Hours) 05/31/18 05/31/18 05/31/18 05:25 11:34 17:11 WBC RBC Hgb Hct MCV MCH MCHC RDW RDW Differential Plt Count MPV Immature Gran % (Auto) Neut % (Auto) Lymph % (Auto) [place] % (Auto) Eos % (Auto) Baso % (Auto) Absolute Neuts (auto) Absolute Lymphs (auto) Total Counted Not Reportable Sodium Potassium Chloride Carbon Dioxide Anion Gap BUN Creatinine Estim Creat Clear Calc Est GFR (MDRD) Af Amer Est GFR (MDRD) Non-Af BUN/Creatinine Ratio Glucose Calcium Phosphorus Magnesium Albumin POC Glucose 233 H 220 H 06/01/18 06/01/18 06/01/18 00:11 04:10 04:10 WBC 11.5 H RBC 3.21 L Hgb 9.4 L Hct 28.4 L MCV 88.5 MCH 29.3 MCHC 33.1 RDW 14.9 H RDW Differential 46.6 H Plt Count 230 MPV 12.1 H Immature Gran % (Auto) Neut % (Auto) Lymph % (Auto) [place] % (Auto) Eos % (Auto) Baso % (Auto) Absolute Neuts (auto) Absolute Lymphs (auto) Total Counted Sodium 143 Potassium 5.0 Chloride 116 H Carbon Dioxide 19.0 L Anion Gap BUN 79 H Creatinine 4.88 H Estim Creat Clear Calc 17.01 Est GFR (MDRD) Af Amer 16 L Est GFR (MDRD) Non-Af 13 L BUN/Creatinine Ratio 16.2 Glucose 159 H Calcium 8.4 L Phosphorus 5.0 H Magnesium 1.9 Albumin 2.9 L POC Glucose 142 H 06/01/18 06/01/18 06/01/18 05:36 11:20 17:05 WBC RBC Hgb Hct MCV MCH MCHC RDW RDW Differential Plt Count MPV Immature Gran % (Auto) Neut % (Auto) Lymph % (Auto) [place] % (Auto) Eos % (Auto) Baso % (Auto) Absolute Neuts (auto) Absolute Lymphs (auto) Total Counted Sodium Potassium Chloride Carbon Dioxide Anion Gap BUN Creatinine Estim Creat Clear Calc Est GFR (MDRD) Af Amer Est GFR (MDRD) Non-Af BUN/Creatinine Ratio Glucose Calcium Phosphorus Magnesium Albumin POC Glucose 156 H 190 H 158 H 06/01/18 06/02/18 06/02/18 21:19 04:30 04:30 WBC 7.8 RBC 3.04 L Hgb 8.6 L Hct 26.8 L MCV 88.2 MCH 28.3 MCHC 32.1 RDW 15.7 H RDW Differential 50.6 H Plt Count 199 MPV 11.7 Immature Gran % (Auto) 0.300 Neut % (Auto) 57.1 Lymph % (Auto) 15.0 L [place] % (Auto) 4.7 Eos % (Auto) 22.6 H Baso % (Auto) 0.3 Absolute Neuts (auto) 4.5 Absolute Lymphs (auto) 1.17 Total Counted Not Reportable Sodium 145 Potassium 5.6 H Chloride 120 H Carbon Dioxide 18.0 L Anion Gap 7 BUN 64 H Creatinine 3.78 H Estim Creat Clear Calc 21.95 Est GFR (MDRD) Af Amer 21 L Est GFR (MDRD) Non-Af 17 L BUN/Creatinine Ratio 16.9 Glucose 169 H Calcium 8.2 L Phosphorus Magnesium Albumin POC Glucose 172 H Microbiology 05/30/18 18:55 Stool Enteric Bacteriology - Final Medical Necessity - Tobacco Use Smoking Status: Current some day smoker Assessment/Plan All Active Problems (Last Reviewed 04/21/18 @ 09:45 by Yaquelin Simpson) Clostridium difficile colitis (Acute) Gastroenteritis (Acute) NICK (acute kidney injury) (Acute) Hyperkalemia (Acute) Acute renal failure superimposed on stage 4 chronic kidney disease (Acute) Metabolic acidosis (Acute) Acute exacerbation of chronic obstructive pulmonary disease (COPD) (Resolved) Acute respiratory failure with hypoxemia (Resolved) Benign neoplasm of right lung (Resolved) Influenza B (Resolved) Lower GI bleed (Resolved) Severe sepsis (Resolved) Streptococcal pneumonia (Resolved) Urinary retention due to benign prostatic hyperplasia (Resolved) RECOMMENDATIONS: 1. Continue antibiotics as ordered. 2. Continue vasopressor support to maintain a mean arterial pressure at or above 65 mmHg. Wean as tolerated 3. Defer to nephrology for discontinuation of bicarbonate. 4. Continue scheduled bronchodilators. 5. Encourage incentive spirometer use and mobilize patient as tolerated. 6. Okay to leave the intensive care unit from my perspective IMPRESSIONS: 1. Septic shock secondary to C. difficile colitis Patient continues to improve. Levophed has been off for almost 24 hours. Continue antimicrobials as ordered. Patient appears to be responding to therapy. Patient appears to be hemodynamically stable at this time. Likely okay to leave the intensive care unit. 2. Acute on chronic kidney disease Continues to improve. Likely exacerbated by the patient's hypotension and intravascular volume status. Continue supportive measures as noted above. Defer timing of bicarbonate supplementation to nephrology. 3. Baseline COPD without exacerbation Continue bronchodilators as ordered. Encourage incentive spirometer use and mobilize patient as tolerated. Patient does not appear to be in exacerbation at this time. Therapeutic substitution for home medications has been ordered. 4. Known history of obstructive sleep apnea While the patient has known obstructive sleep apnea, he has been and continues to be noncompliant with the use of nocturnal Pap therapy. This may account for some of patient's nocturnal decrease in saturations 5. Hypertension/hyperlipidemia/gout/pulmonary nodule/tobacco dependency in remission/coronary artery disease status post CABG/history of colon cancer Complicates care, management, recovery and prognosis. May restart antihypertensives in a stepwise fashion. Code Visit Inpatient E&M: 51496 Subs Hosp L3
[2018-06-02 07:15] LABS: Bedside Glucose 171 mg/dL (70-110)
--- NOTE | 2018-06-02 08:11 | PCM.PN.HOSP ---
Patient Problems: Active and Suspected Problems (Last Reviewed 04/21/18 @ 09:45 by Yaquelin Simpson) Clostridium difficile colitis (Acute) Subjective: feeling good. Tolerating PO. Formed BMs. Vitals/I&O's: Vital Signs Temp Pulse Resp BP Pulse Ox 37.2 C 123 H 24 H 147/94 H 92 06/02/18 05:00 06/02/18 06:19 06/02/18 06:19 06/02/18 06:19 06/02/18 06:19 Oxygen Flow Rate (L/min) 1 Oxygen Delivery Method Room Air Weight: 101 kg Body Mass Index (BMI) 28.8 Intake and Output for Last 24 Hours 05/31/18 06/01/18 06/02/18 23:59 23:59 23:59 Intake Total 6602.6 / 6602.6 3828.1 / 3828.1 2500 / 2500 Output Total 2200 / 2200 2500 / 2500 1475 / 1475 Balance 4402.6 / 4402.6 1328.1 / 1328.1 1025 / 1025 General: Alert, No apparent distress HEENT: Atraumatic, Normocephalic Oral: Moist Mucosa, No Gingival or Mucosal Lesions/ Ulcerations Neck: No Nodes, Thyroid Normal Size and Texture Lungs: Clear to auscultation, Normal air movement, No rhonchi, No wheeze Cardiovascular: Regular rate, Regular Rhythm, Normal S1, Normal S2, No murmurs Abdomen: Bowel Sounds Present, Soft, Non Tender, Non-Distended, No Hepato-splenomegaly Extremities: No edema, No Calf Tenderness Skin: No rashes, No breakdown Musculoskeletal: No Tenderness to Palpation of Joints or Extremities, No Muscle Wasting Psych/Mental Status: Normal Affect, Appropriate Microbiology Past 72 Hours 05/30/18 18:55 Stool Enteric Bacteriology - Final 05/30/18 16:30 Stool C. difficile DNA Amplification - Final Toxigenic C. difficile DNA Laboratory Results 06/01/18 11:20: POC Glucose 190 H 06/01/18 17:05: POC Glucose 158 H 06/01/18 21:19: POC Glucose 172 H 06/02/18 04:30: WBC 7.8, RBC 3.04 L, Hgb 8.6 L, Hct 26.8 L, MCV 88.2, MCH 28.3, MCHC 32.1, RDW 15.7 H, RDW Differential 50.6 H, Plt Count 199, MPV 11.7, Immature Gran % (Auto) 0.300, Neut % (Auto) 57.1, Lymph % (Auto) 15.0 L, [place] % (Auto) 4.7, Eos % (Auto) 22.6 H, Baso % (Auto) 0.3, Absolute Neuts (auto) 4.5, Absolute Lymphs (auto) 1.17, Total Counted Not Reportable 06/02/18 04:30: Sodium 145, Potassium 5.6 H, Chloride 120 H, Carbon Dioxide 18.0 L, Anion Gap 7, BUN 64 H, Creatinine 3.78 H, Estim Creat Clear Calc 21.95, Est GFR (MDRD) Af Amer 21 L, Est GFR (MDRD) Non-Af 17 L, BUN/Creatinine Ratio 16.9, Glucose 169 H, Calcium 8.2 L 06/02/18 06:34: POC Glucose 171 H Current Medications Acetaminophen (Tylenol) 650 mg PO Q4H PRN PRN PRN Reason: PAIN Albuterol Sulfate (Ventolin Aerosols) 2.5 mg INHALATION Q4HWA.RT [facility] Last Admin: 06/02/18 07:04 Dose: 2.5 mg Allopurinol (Zyloprim) 300 mg PO DAILY [facility] Last Admin: 06/01/18 09:29 Dose: 300 mg Aspirin (Aspirin, Baby) 81 mg PO DAILY [facility] Last Admin: 06/01/18 09:29 Dose: 81 mg Atorvastatin Calcium (Lipitor) 40 mg PO QHS [facility] Last Admin: 06/01/18 21:24 Dose: 40 mg Budesonide (Pulmicort Aerosol) 0.5 mg INHALATION BID.RT [facility] Last Admin: 06/02/18 07:04 Dose: 0.5 mg Chlorhexidine Gluconate () 1 each TOPICAL DAILY [facility] Cilostazol (Pletal) 50 mg PO BID [facility] Last Admin: 06/01/18 21:24 Dose: 50 mg Colchicine (Colchicine) 0.6 mg PO TID PRN PRN PRN Reason: GOUT Dextrose (D50w Syringe) 0 gm IV X1 PRN; Protocol PRN Reason: Hypoglycemia Diazepam (Valium) 5 mg PO DAILY PRN PRN Reason: ANXIETY Ergocalciferol (Vitamin D) 50,000 unit PO Q14D [facility] Finasteride (Proscar) 5 mg PO DAILY [facility] Last Admin: 06/01/18 09:30 Dose: 5 mg Glucagon () 1 mg IM .X1 PRN PRN Reason: Hypoglycemia Heparin Sodium (Porcine) (Heparin Na) 5,000 unit SC Q8 [facility] Last Admin: 06/02/18 06:40 Dose: 5,000 unit Hydrocortisone Acetate (Anusol Hc) 25 mg RECTAL BID [facility] Last Admin: 06/01/18 21:42 Dose: 25 mg Metronidazole (Flagyl) 500 mg in 100 mls @ 100 mls/hr IV Q8 [facility] Last Admin: 06/02/18 06:37 Dose: 100 mls/hr Insulin Glargine (Lantus ([facility])) 6 units SC 0600 [facility] Last Admin: 06/02/18 06:40 Dose: 6 u Insulin Human Lispro (Humalog Kwikpen ([facility])) 0 unit SC ACHS [facility]; Protocol Last Admin: 06/02/18 06:39 Dose: 2 u Nitroglycerin (Nitrostat) 0.4 mg SUBLINGUAL Q5M PRN PRN Reason: Chest Pain Oxycodone HCl (Oxyir) 5 mg PO Q6H PRN PRN Reason: PAIN Pantoprazole Sodium (Protonix) 40 mg PO DAILY [facility] Last Admin: 06/01/18 09:29 Dose: 40 mg Sodium Bicarbonate (Sodium Bicarbonate) 650 mg PO TID [facility] Last Admin: 06/02/18 06:42 Dose: 650 mg Sodium Chloride () 5 - 15 ml IV UD PRN PRN Reason: SALINE FLUSH Last Admin: 06/01/18 13:29 Dose: 10 ml Tamsulosin HCl (Flomax) 0.4 mg PO DAILY@1730 [facility] Last Admin: 06/01/18 17:24 Dose: 0.4 mg Vancomycin HCl () 125 mg PO Q6 [facility] Last Admin: 06/02/18 06:42 Dose: 125 mg Medical Necessity - Tobacco Use Smoking Status: Current some day smoker Assessment/Plan All Active Problems (Last Reviewed 04/21/18 @ 09:45 by Yaquelin Simpson) Clostridium difficile colitis (Acute) Gastroenteritis (Acute) NICK (acute kidney injury) (Acute) Hyperkalemia (Acute) Acute renal failure superimposed on stage 4 chronic kidney disease (Acute) Metabolic acidosis (Acute) Acute exacerbation of chronic obstructive pulmonary disease (COPD) (Resolved) Acute respiratory failure with hypoxemia (Resolved) Benign neoplasm of right lung (Resolved) Influenza B (Resolved) Lower GI bleed (Resolved) Severe sepsis (Resolved) Streptococcal pneumonia (Resolved) Urinary retention due to benign prostatic hyperplasia (Resolved) 1. Septic shock: POA. / C.diff. improving. Off Levophed since 06/01. 2. C. diff colitis: improving. On PO vanc and IV flagyl. DC flagyl. Upon discharge: Vanc 125 QID for 10 days. Advance diet. 3. NICK: on CKD. Improved today to 3.78 (from 7.29). Baseline is around 3. Likely prerenal and ATN. Continue IVF. Nephrology following. On PO bicarbonate. 4. Hyperkalemia: up today, no mention of hemolysis. monitor. 5. DVT proph: SQ heparin. 6. Disposition: to med surg. Home, hopefully, in 24-48h. Code Visit Inpatient E&M: 26561 Subs Hosp L2
--- NOTE | 2018-06-02 08:21 | PN_ITS ---
Patient Problems: Active and Suspected Problems (Last Reviewed 04/21/18 @ 09:45 by Yaquelin Simpson) Clostridium difficile colitis (Acute) Subjective: feeling good. Tolerating PO. Formed BMs. Vitals/I&O's: Vital Signs Temp Pulse Resp BP Pulse Ox 37.2 C 123 H 24 H 147/94 H 92 06/02/18 05:00 06/02/18 06:19 06/02/18 06:19 06/02/18 06:19 06/02/18 06:19 Oxygen Flow Rate (L/min) 1 Oxygen Delivery Method Room Air Weight: 101 kg Body Mass Index (BMI) 28.8 Intake and Output for Last 24 Hours 05/31/18 06/01/18 06/02/18 23:59 23:59 23:59 Intake Total 6602.6 / 6602.6 3828.1 / 3828.1 2500 / 2500 Output Total 2200 / 2200 2500 / 2500 1475 / 1475 Balance 4402.6 / 4402.6 1328.1 / 1328.1 1025 / 1025 General: Alert, No apparent distress HEENT: Atraumatic, Normocephalic Oral: Moist Mucosa, No Gingival or Mucosal Lesions/ Ulcerations Neck: No Nodes, Thyroid Normal Size and Texture Lungs: Clear to auscultation, Normal air movement, No rhonchi, No wheeze Cardiovascular: Regular rate, Regular Rhythm, Normal S1, Normal S2, No murmurs Abdomen: Bowel Sounds Present, Soft, Non Tender, Non-Distended, No Hepato- splenomegaly Extremities: No edema, No Calf Tenderness Skin: No rashes, No breakdown Musculoskeletal: No Tenderness to Palpation of Joints or Extremities, No Muscle Wasting Psych/Mental Status: Normal Affect, Appropriate Microbiology Past 72 Hours 05/30/18 18:55 Stool Enteric Bacteriology - Final 05/30/18 16:30 Stool C. difficile DNA Amplification - Final Toxigenic C. difficile DNA Laboratory Results 06/01/18 11:20: POC Glucose 190 H 06/01/18 17:05: POC Glucose 158 H 06/01/18 21:19: POC Glucose 172 H 06/02/18 04:30: WBC 7.8, RBC 3.04 L, Hgb 8.6 L, Hct 26.8 L, MCV 88.2, MCH 28.3, MCHC 32.1, RDW 15.7 H, RDW Differential 50.6 H, Plt Count 199, MPV 11.7, I mmature Gran % (Auto) 0.300, Neut % (Auto) 57.1, Lymph % (Auto) 15.0 L, [place] % (Auto) 4.7, Eos % (Auto) 22.6 H, Baso % (Auto) 0.3, Absolute Neuts (auto) 4.5, Absolute Lymphs (auto) 1.17, Total Counted Not Reportable 06/02/18 04:30: Sodium 145, Potassium 5.6 H, Chloride 120 H, Carbon Dioxide 18.0 L, Anion Gap 7, BUN 64 H, Creatinine 3.78 H, Estim Creat Clear Calc 21.95, Est GFR (MDRD) Af Amer 21 L, Est GFR (MDRD) Non-Af 17 L, BUN/Creatinine Ratio 16.9, Glucose 169 H, Calcium 8.2 L 06/02/18 06:34: POC Glucose 171 H Current Medications Acetaminophen (Tylenol) 650 mg PO Q4H PRN PRN PRN Reason: PAIN Albuterol Sulfate (Ventolin Aerosols) 2.5 mg INHALATION Q4HWA.RT [facility] Last Admin: 06/02/18 07:04 Dose: 2.5 mg Allopurinol (Zyloprim) 300 mg PO DAILY [facility] Last Admin: 06/01/18 09:29 Dose: 300 mg Aspirin (Aspirin, Baby) 81 mg PO DAILY [facility] Last Admin: 06/01/18 09:29 Dose: 81 mg Atorvastatin Calcium (Lipitor) 40 mg PO QHS [facility] Last Admin: 06/01/18 21:24 Dose: 40 mg Budesonide (Pulmicort Aerosol) 0.5 mg INHALATION BID.RT [facility] Last Admin: 06/02/18 07:04 Dose: 0.5 mg Chlorhexidine Gluconate () 1 each TOPICAL DAILY [facility] Cilostazol (Pletal) 50 mg PO BID [facility] Last Admin: 06/01/18 21:24 Dose: 50 mg Colchicine (Colchicine) 0.6 mg PO TID PRN PRN PRN Reason: GOUT Dextrose (D50w Syringe) 0 gm IV X1 PRN; Protocol PRN Reason: Hypoglycemia Diazepam (Valium) 5 mg PO DAILY PRN PRN Reason: ANXIETY Ergocalciferol (Vitamin D) 50,000 unit PO Q14D [facility] Finasteride (Proscar) 5 mg PO DAILY [facility] Last Admin: 06/01/18 09:30 Dose: 5 mg Glucagon () 1 mg IM .X1 PRN PRN Reason: Hypoglycemia Heparin Sodium (Porcine) (Heparin Na) 5,000 unit SC Q8 [facility] Last Admin: 06/02/18 06:40 Dose: 5,000 unit Hydrocortisone Acetate (Anusol Hc) 25 mg RECTAL BID [facility] Last Admin: 06/01/18 21:42 Dose: 25 mg Metronidazole (Flagyl) 500 mg in 100 mls @ 100 mls/hr IV Q8 [facility] Last Admin: 06/02/18 06:37 Dose: 100 mls/hr Insulin Glargine (Lantus (Bkc)) 6 units SC 0600 [facility] Last Admin: 06/02/18 06:40 Dose: 6 u Insulin Human Lispro (Humalog Kwikpen (Bkc)) 0 unit SC ACHS [facility]; Protocol Last Admin: 06/02/18 06:39 Dose: 2 u Nitroglycerin (Nitrostat) 0.4 mg SUBLINGUAL Q5M PRN PRN Reason: Chest Pain Oxycodone HCl (Oxyir) 5 mg PO Q6H PRN PRN Reason: PAIN Pantoprazole Sodium (Protonix) 40 mg PO DAILY [facility] Last Admin: 06/01/18 09:29 Dose: 40 mg Sodium Bicarbonate (Sodium Bicarbonate) 650 mg PO TID [facility] Last Admin: 06/02/18 06:42 Dose: 650 mg Sodium Chloride () 5 - 15 ml IV UD PRN PRN Reason: SALINE FLUSH Last Admin: 06/01/18 13:29 Dose: 10 ml Tamsulosin HCl (Flomax) 0.4 mg PO DAILY@1730 [facility] Last Admin: 06/01/18 17:24 Dose: 0.4 mg Vancomycin HCl () 125 mg PO Q6 [facility] Last Admin: 06/02/18 06:42 Dose: 125 mg Medical Necessity - Tobacco Use Smoking Status: Current some day smoker Assessment/Plan All Active Problems (Last Reviewed 04/21/18 @ 09:45 by Yaquelin Simpson) Clostridium difficile colitis (Acute) Gastroenteritis (Acute) NICK (acute kidney injury) (Acute) Hyperkalemia (Acute) Acute renal failure superimposed on stage 4 chronic kidney disease (Acute) Metabolic acidosis (Acute) Acute exacerbation of chronic obstructive pulmonary disease (COPD) (Resolved) Acute respiratory failure with hypoxemia (Resolved) Benign neoplasm of right lung (Resolved) Influenza B (Resolved) Lower GI bleed (Resolved) Severe sepsis (Resolved) Streptococcal pneumonia (Resolved) Urinary retention due to benign prostatic hyperplasia (Resolved) 1. Septic shock: POA. 04/18 C.diff. improving. Off Levophed since 06/01. 2. C. diff colitis: improving. On PO vanc and IV flagyl. DC flagyl. Upon discharge: Vanc 125 QID for 10 days. Advance diet. 3. NICK: on CKD. Improved today to 3.78 (from 7.29). Baseline is around 3. Likely prerenal and ATN. Continue IVF. Nephrology following. On PO bicarbonate. 4. Hyperkalemia: up today, no mention of hemolysis. monitor. 5. DVT proph: SQ heparin. 6. Disposition: to med surg. Home, hopefully, in 24-48h. Code Visit Inpatient E&M: 01940 Subs Hosp L2
--- NOTE | 2018-06-02 08:38 | NURSING ---
REPORT CALLED TO MED MICHAEL RN [id number]
[2018-06-02] MEDS: Cilostazol 50 MG Tablet PO ×2 (10:03→21:31)
[2018-06-02] MEDS: Finasteride 5 MG Tablet PO (10:03)
[2018-06-02] MEDS: Allopurinol 300 MG Tablet PO (10:03)
[2018-06-02] MEDS: Pantoprazole Sodium 40 MG Tablet PO (10:03)
--- NOTE | 2018-06-02 10:03 | PN.RENAL_ITS ---
Patient Problems: Active and Suspected Problems (Last Reviewed 04/21/18 @ 09:45 by Yaquelin Simpson) Clostridium difficile colitis (Acute) Subjective: loose BM this am. Creatinine improving but potassium elevated with continued acidosis from GI loss. Await dietary consult. Denies abdominal pain. - Physical Exam General: Alert, Oriented x3, Cooperative, No apparent distress Lungs: Clear to auscultation Cardiovascular: Tachycardic Abdomen: Bowel Sounds Present, Soft, Non Tender Extremities: No edema Psych/Mental Status: Alert and oriented to time, place, person, mood and affect Vital Signs Temp Pulse Resp BP Pulse Ox 98 F 119 H 18 126/84 H 97 06/02/18 07:00 06/02/18 08:00 06/02/18 08:00 06/02/18 08:00 06/02/18 08:00 Oxygen Flow Rate (L/min) 1 Oxygen Delivery Method Room Air Weight: 101 kg Body Mass Index (BMI) 28.8 Intake and Output for Last 24 Hours 05/31/18 06/01/18 06/02/18 23:59 23:59 23:59 Intake Total 6602.6 / 6602.6 3828.1 / 3828.1 2500 / 2500 Output Total 2200 / 2200 2500 / 2500 1475 / 1475 Balance 4402.6 / 4402.6 1328.1 / 1328.1 1025 / 1025 Microbiology Past 72 Hours 05/30/18 18:55 Enteric Bacteriology - Final Stool 05/30/18 16:30 C. difficile DNA Amplification - Final Stool Toxigenic C. difficile DNA Laboratory Tests Past 24 Hrs 06/02/18 06/02/18 04:30 04:30 WBC 7.8 RBC 3.04 L Hgb 8.6 L Hct 26.8 L MCV 88.2 MCH 28.3 MCHC 32.1 RDW 15.7 H RDW Differential 50.6 H Plt Count 199 MPV 11.7 Immature Gran % (Auto) 0.300 Neut % (Auto) 57.1 Lymph % (Auto) 15.0 L [place] % (Auto) 4.7 Eos % (Auto) 22.6 H Baso % (Auto) 0.3 Absolute Neuts (auto) 4.5 Absolute Lymphs (auto) 1.17 Total Counted Not Reportable Sodium 145 Potassium 5.6 H Chloride 120 H Carbon Dioxide 18.0 L Anion Gap 7 BUN 64 H Creatinine 3.78 H Estim Creat Clear Calc 21.95 Est GFR (MDRD) Af Amer 21 L Est GFR (MDRD) Non-Af 17 L BUN/Creatinine Ratio 16.9 Glucose 169 H Calcium 8.2 L POC Glucose 06/02/18 06/01/18 06/01/18 06:34 21:19 17:05 POC Glucose 171 H 172 H 158 H 06/01/18 11:20 POC Glucose 190 H Medical Necessity - Tobacco Use Smoking Status: Current some day smoker Assessment/Plan All Active Problems (Last Reviewed 04/21/18 @ 09:45 by Yaquelin Simpson) Clostridium difficile colitis (Acute) Gastroenteritis (Acute) NICK (acute kidney injury) (Acute) Hyperkalemia (Acute) Acute renal failure superimposed on stage 4 chronic kidney disease (Acute) Metabolic acidosis (Acute) Acute exacerbation of chronic obstructive pulmonary disease (COPD) (Resolved) Acute respiratory failure with hypoxemia (Resolved) Benign neoplasm of right lung (Resolved) Influenza B (Resolved) Lower GI bleed (Resolved) Severe sepsis (Resolved) Streptococcal pneumonia (Resolved) Urinary retention due to benign prostatic hyperplasia (Resolved) 1. NICK on CKD stage 4 due to gastroenteritis, dehydration, cdiff colitis. Underlying CKD from diabetes. Renal fxn improving off iv fluids. Remains tachycardic. 2. Acute hyperkalemia due to NICK, metabolic acidosis, renal failure Dietary consult, kayexalate, bicarb ivp 3. Cdiff colitis on po vanco and flagyl iv 4. Shock with lactic acidosis. Off pressors 5. Metabolic acidosis due to GI loss, renal failure resume oral bicarb 6. Sinus tachycardia due to dehydration may need iv fluids resumed 7. Anemia hgb 8.6g. Epo x1
[2018-06-02] MEDS: Aspirin 81 MG TAB.CHEW PO (10:13)
[2018-06-02] MEDS: Sodium Polystyrene Sulfonate 15 GM/60 ML UDC PO (11:13)
[2018-06-02] MEDS: 0.45% Normal Saline 1,000 ML 100 ML IV ×2 (11:13→21:19)
[2018-06-02] MEDS: Sodium Bicarbonate 8.4% 50 ML Syringe 50 MEQ IV (11:15)
[2018-06-02 11:36] LABS: Bedside Glucose 186 mg/dL (70-110)
[2018-06-02 16:35] LABS: Bedside Glucose 164 mg/dL (70-110)
[2018-06-02] MEDS: Tamsulosin HCl 0.4 MG Capsule PO (16:36)
[2018-06-02] MEDS: diazePAM 5 MG Tablet PO (20:20)
[2018-06-02] MEDS: Hydrocortisone 25 MG Suppository RECTAL (21:30)
[2018-06-02] MEDS: Atorvastatin Calcium 40 MG Tablet PO (21:31)
[2018-06-02 21:45] LABS: Bedside Glucose 182 mg/dL (70-110)
[2018-06-03 01:54] VITALS: BP 165/88; PULSE 99; RESP 18; TEMP 36.8; O2SAT 97
[2018-06-03 03:35] VITALS: PULSE 80
[2018-06-03] MEDS: Sodium Bicarbonate 650 MG Tablet PO (05:54)
[2018-06-03] MEDS: Heparin Injection (Vial) 5,000 UNIT/ML VIAL 5000 UNIT SC (05:54)
[2018-06-03 06:08] LABS: Absolute Lymphocyte Count 1.97 X10^3/ul (0.83-4.51); Absolute Neutrophil Count 3.9 X10^3/uL (2.0-7.7); Basophil# 0.02 X10^3/uL; Basophil% 0.2 % (0-1); Eosinophil# 1.68 X10^3/uL; Eosinophils% 20.7 % (0-5); Hematocrit 26.9 % (40-54); Hemoglobin 8.5 g/dl (13.0-16.5); Lymphocyte # 1.97 X10^3/ul (4.0); Lymphocyte % 24.3 % (19-41); Mean Corp Hgb Conc 31.6 g/gl (32-36); Mean Corpuscular Hgb 28.4 pg (27.0-32.0); Mean Platelet Vol. 12.4 fl (6.2-12.0); Monocyte# 0.49 X10^3/uL; Neutrophil # 3.91 X10^3/uL (2.7-7.7); Neutrophil % 48.2 % (47-70); Platelet Count 196 K/mm3 (150-450); RBC Distribution Width CV 15.1 % (11.6-14.6); RBC Distribution Width SD 48.4 fl (35.1-43.9); Red Blood Count 2.99 M/mm3 (4.6-6.2); White Blood Count 8.1 K/mm3 (4.4-11.0)
[2018-06-03 06:17] LABS: POSITIVE COUNT NO; POSITIVE DIFFERENTIAL NO; POSITIVE MORPHOLOGY NO
[2018-06-03 06:30] LABS: Bedside Glucose 152 mg/dL (70-110)
[2018-06-03] MEDS: Insulin Lispro 100 UNIT/ML INSULN.PEN SC (06:35)
[2018-06-03 06:49] LABS: Anion Gap 7 (5-15); BUN 52 mg/dL (7-18); BUN/Creat Ratio 17.3 RATIO (10-20); Calcium,Total 8.3 mg/dL (8.5-10.1); Chloride 116 mmol/L (98-107); Creatinine, Serum 3.01 mg/dL (0.70-1.30); EST Glomerular Filtration Rate 23 mL/min (>60); Est Glom Filt Rate - Afr Amer 27 mL/min (>60); Estimated Creatinine Clearance 27.57 ml/min; Glucose 158 mg/dL (74-106); Potassium 4.8 mmol/L (3.5-5.1); Sodium Level 144 mmol/L (136-145)
[2018-06-03 07:20] VITALS: PULSE 100; RESP 18; O2SAT 95
[2018-06-03] MEDS: Albuterol 2.5 MG/3 ML VIAL.NEB. INHALATION (07:20)
[2018-06-03] MEDS: Budesonide Respules 0.5 MG/2 ML AMPUL.NEB. INHALATION (07:20)
--- NOTE | 2018-06-03 08:47 | PCM.PN.REN ---
Subjective: no diarrhea no abdominal pain. Tolerating diet - Physical Exam General: Alert, Oriented x3, Cooperative Abdomen: Bowel Sounds Present, Soft, Non Tender, Non-Distended Extremities: No edema Psych/Mental Status: Alert and oriented to time, place, person, mood and affect Vital Signs Temp Pulse Resp BP Pulse Ox 98.2 F 100 18 165/88 H 95 06/03/18 01:54 06/03/18 07:20 06/03/18 07:20 06/03/18 01:54 06/03/18 07:20 Oxygen Flow Rate (L/min) 1 Oxygen Delivery Method Room Air Weight: 101 kg Body Mass Index (BMI) 28.8 Intake and Output for Last 24 Hours 06/01/18 06/02/18 06/03/18 23:59 23:59 23:59 Intake Total 3828.1 / 3828.1 2500 / 2500 3061 / 3061 Output Total 2500 / 2500 1475 / 1475 900 / 900 Balance 1328.1 / 1328.1 1025 / 1025 2161 / 2161 Microbiology Past 72 Hours 05/30/18 18:55 Enteric Bacteriology - Final Stool Laboratory Tests Past 24 Hrs 06/03/18 06/03/18 05:35 05:35 WBC 8.1 RBC 2.99 L Hgb 8.5 L Hct 26.9 L MCV 90.0 MCH 28.4 MCHC 31.6 L RDW 15.1 H RDW Differential 48.4 H Plt Count 196 MPV 12.4 H Immature Gran % (Auto) 0.600 Neut % (Auto) 48.2 Lymph % (Auto) 24.3 [place] % (Auto) 6.0 Eos % (Auto) 20.7 H Baso % (Auto) 0.2 Absolute Neuts (auto) 3.9 Absolute Lymphs (auto) 1.97 Total Counted Not Reportable Sodium 144 Potassium 4.8 Chloride 116 H Carbon Dioxide 21.0 Anion Gap 7 BUN 52 H Creatinine 3.01 H Estim Creat Clear Calc 27.57 Est GFR (MDRD) Af Amer 27 L Est GFR (MDRD) Non-Af 23 L BUN/Creatinine Ratio 17.3 Glucose 158 H Calcium 8.3 L POC Glucose 06/03/18 06/02/18 06/02/18 05:52 21:32 16:30 POC Glucose 152 H 182 H 164 H 06/02/18 11:18 POC Glucose 186 H Medical Necessity - Tobacco Use Smoking Status: Current some day smoker Assessment/Plan All Active Problems (Last Reviewed 04/21/18 @ 09:45 by Yaquelin Simpson) Clostridium difficile colitis (Acute) Gastroenteritis (Acute) NICK (acute kidney injury) (Acute) Hyperkalemia (Acute) Acute renal failure superimposed on stage 4 chronic kidney disease (Acute) Metabolic acidosis (Acute) Acute exacerbation of chronic obstructive pulmonary disease (COPD) (Resolved) Acute respiratory failure with hypoxemia (Resolved) Benign neoplasm of right lung (Resolved) Influenza B (Resolved) Lower GI bleed (Resolved) Severe sepsis (Resolved) Streptococcal pneumonia (Resolved) Urinary retention due to benign prostatic hyperplasia (Resolved) 1. NICK on CKD stage 4 due to gastroenteritis, dehydration, cdiff colitis. Underlying CKD from diabetes. Renal fxn improved to 3.0 creatinine. Baseline creatinine 2.5. Hold Losartan for now. Ok to dc to home from renal standpoint 2. Acute hyperkalemia resolved 3. Cdiff colitis on po vanco 4. anemia hgb 8.5g 5. Metabolic acidosis. Continue bicarb tid DW hospitalist
[2018-06-03 09:00] VITALS: PULSE 95
--- NOTE | 2018-06-03 09:43 | DCINST_ITS ---
- Discharge Diagnoses Current Active Problems: Current Active and Chronic Problems (Last Reviewed 04/21/18 @ 09:45 by Yaquelin Simpson) Chronic hypoxemic respiratory failure (Chronic) 2-3 LPM chronically Colon cancer (Chronic) had surgery with no chemo or radiation at [facility] fall Status post colon resection (Chronic) subtotal for colon CA in the fall at [facility] Hemorrhoids (Chronic) You will use the following diet at home:: No restrictions Your food should be the consistency of: Regular Discharge Activity: Return to Normal Activity Call your doctor if you observe: Fever of 101 or Higher, - - worsening diarrhea. Allergies/Adverse Reactions: Allergies No Known Allergies Allergy (Verified 05/30/18 10:18) Medications to take at Discharge Aspirin 81 mg PO DAILY 05/14/17 Nitroglycerin [Nitrostat] 0.4 mg SUBLINGUAL Q5M PRN 05/14/17 Oxycodone [Oxyir] 5 mg PO BID PRN PRN 05/14/17 Simvastatin 80 mg PO QHS 05/14/17 Oxygen, Home [Home Oxygen] 2 - 3 lpm NASAL UD #1 unit 05/18/17 Albuterol Aerosols [Ventolin Aerosols] 2.5 mg INHALATION Q4H PRN PRN 09/15/17 Allopurinol [Zyloprim] 300 mg PO DAILY 09/15/17 Cilostazol 50 mg PO BID 09/15/17 Colchicine 0.6 mg PO TID PRN 09/15/17 Ergocalciferol [Vitamin D] 50,000 unit PO Q7D 09/15/17 Finasteride [Proscar] 5 mg PO DAILY 09/15/17 Isosorbide Mononitrate [Imdur] 30 mg PO DAILY 09/15/17 Metoprolol(XL)Succ [Toprol Xl (Beta Vanesa)] 50 mg PO DAILY 09/15/17 Nebulizer [Aeroneb Go Nebulizer] 1 ea MC 4X/DAY 09/15/17 Pantoprazole Sodium [Protonix] 40 mg PO DAILY 09/15/17 Tamsulosin HCl [Flomax] 0.4 mg PO DAILY@1730 09/15/17 hydrALAZINE [Apresoline] 25 mg PO TID 09/15/17 umeclidinium 62.5 mcg/actuation blister powder for inhalation 1 inh INHALATION QDAY #30 ea 04/22/18 Albuterol Inhaler [Ventolin Hfa] 1 - 2 puff INHALATION Q4H PRN PRN 05/12/18 Diazepam [Valium] 5 mg PO DAILY PRN 05/12/18 Insulin Aspart [Novolog Flexpen] 5 units SC TIDCM #0 05/16/18 Insulin Degludec [Tresiba Flextouch U-100] 20 unit SC QHS #0 05/16/18 Sodium Bicarbonate 650 mg PO TID #90 tablet 06/03/18 Vancomcyin 125mg/5mL PO Liquid 125 mg PO Q6 #28 po.syringe 06/03/18 The following prescriptions were given: Vancomcyin 125mg/5mL PO Liquid 125 mg PO Q6 #28 po.syringe Sodium Bicarbonate 650 mg PO TID #90 tablet Orders to be completed after discharge: Basic Metabolic Profile (BMP) Time Frame: 1 Week, Location: Laboratory Primary Care Physician: Caesar Chavez DO [Primary Care Provider] - Within 2 Weeks Test Results: Test results from this visit will be discussed in further detail at your follow- up appointment, if applicable. Please Follow Up With: Daysi Magana DO When: 2-4 weeks Proposed Discharge Date: 06/03/18
--- NOTE | 2018-06-03 09:43 | PCM.DC.SUM ---
Discharge Date and Diagnosis Date of Admission: 05/30/18 - Primary Discharge Diagnosis 1. Septic shock: POA. 2/2 C.diff. improving. Off Levophed since 06/01. 2. C. diff colitis: improving. On PO vanc and IV flagyl. DC flagyl. Upon discharge: Vanc 125 QID for 10 days. Advance diet. 3. NICK: on CKD. Improved today to 3 (from 7.29). Baseline is around 3. Likely prerenal and ATN. Nephrology follow up. On PO bicarbonate. 4. Hyperkalemia: resolved with kayexalate. - Secondary Discharge Diagnosis Chronic Problems (Last Reviewed 04/21/18 @ 09:45 by Yaquelin Simpson) Chronic hypoxemic respiratory failure (Chronic) 2-3 LPM chronically Colon cancer (Chronic) had surgery with no chemo or radiation at [facility] fall Status post colon resection (Chronic) subtotal for colon CA in the fall at [facility] Hemorrhoids (Chronic) CKD (chronic kidney disease) stage 4, GFR 15-29 ml/min (Chronic) Nicotine dependence, cigarettes, in remission (Chronic) Stage 3 severe COPD by GOLD classification (Chronic) FEV1 37% predicted Heme + stool (Chronic) Anemia of chronic renal failure (Chronic) H/O pneumonectomy (Chronic) Right LL lobectomy due to benign tumor Peripheral vascular disease (Chronic) Radiculopathy affecting upper extremity (Chronic) Iron deficiency anemia (Chronic) Increased PTH level (Chronic) secondary to CRF stage4 Low vitamin D level (Chronic) Paroxysmal atrial fibrillation (Chronic) Nocturnal hypoxia (Chronic) Noncompliance with CPAP treatment (Chronic) LADARIUS (obstructive sleep apnea) (Chronic) Gout (Chronic) History of tobacco abuse (Chronic) quit in April 2017 Hx of CABG (Chronic) x3 2003 Coronary artery disease (Chronic) has had 3 stents.....the last stent he thinks in 2008 Hypertension (Chronic) Diabetes mellitus type 2 in obese (Chronic) Hospital Course and Treatment Imaging Results: Clinical Impression(s) from Imaging Studies Chest X-Ray 05/30/18 10:46 IMPRESSION: Stable, nonacute portable x-ray examination of the chest. Electronically Signed: Yves Lamb MD at 11:38 EDT , Service support , Chest X-Ray 05/30/18 22:41 IMPRESSION: Line in good position, no pneumothorax. Postsurgical changes, possible calcified parenchymal and mediastinal nodules and areas of hyperinflation possible post obstruction. No pulmonary edema, congestive heart failure or confluent pneumonia. Electronically Signed: Angelica Solano MD at 0:00 EDT , Service support , KUB X-Ray 05/31/18 08:16 IMPRESSION: 1. Nonobstructive bowel gas pattern. Possible mild ileus. Electronically Signed: Yves Lamb MD at 10:22 EDT , Service support , Daysi Magana DO: nephrology Nhaun Barlow, DO: [facility] Operations: None Procedures: Central line placement Summary of Care Provided: The patient is a 62 year old M with diarrhea nausea and vomiting. Patient presented with acute kidney injury, with a creatinine of 7.69, with a baseline of 2.91. Subsequently developed hypotension and shock due to O was found to be C. difficile colitis. Was on pressors and gradually improved. Patient was on vancomycin orally metronidazole for the C. difficile and that has steadily improved. He was seen in consultation by nephrology who increased patient's bicarb at home to 3 times per day. Today his blood pressure is stable so he can resume his hydralazine and Imdur. His creatinine is back to baseline. Patient will follow up a [facility] as outpatient and follow-up Dr. Magana as outpatient as well. Patient did have a drop in his hemoglobin was here prior to that is certainly due to hemoconcentration but I would need to be followed up as well and possible referral to gastroenterology. Patient did endorse some blood when he wiped. He will need outpt [facility]. [] - Physical Exam General: Alert, No apparent distress HEENT: Atraumatic, Normocephalic Oral: Moist Mucosa, No Gingival or Mucosal Lesions/ Ulcerations Neck: No Nodes, Thyroid Normal Size and Texture Lungs: Clear to auscultation, Normal air movement, No rhonchi, No wheeze Cardiovascular: Regular rate, Regular Rhythm, Normal S1, Normal S2, No murmurs Abdomen: Bowel Sounds Present, Soft, Non Tender, Non-Distended, No Hepato-splenomegaly Extremities: No edema, No Calf Tenderness Skin: No rashes, No breakdown Psych/Mental Status: Normal Affect, Appropriate Vital Signs Temp Pulse Resp BP Pulse Ox 36.8 C 100 18 165/88 H 95 06/03/18 01:54 06/03/18 07:20 06/03/18 07:20 06/03/18 01:54 06/03/18 07:20 Oxygen Flow Rate (L/min) 1 Oxygen Delivery Method Room Air Weight: 101 kg Body Mass Index (BMI) 28.8 Intake and Output for Last 24 Hours 06/01/18 06/02/18 06/03/18 23:59 23:59 23:59 Intake Total 3828.1 / 3828.1 2500 / 2500 3061 / 3061 Output Total 2500 / 2500 1475 / 1475 900 / 900 Balance 1328.1 / 1328.1 1025 / 1025 2161 / 2161 Microbiology Past 72 Hours 05/30/18 18:55 Enteric Bacteriology - Final Stool Laboratory Tests Past 24 Hrs 06/03/18 06/03/18 05:35 05:35 WBC 8.1 RBC 2.99 L Hgb 8.5 L Hct 26.9 L MCV 90.0 MCH 28.4 MCHC 31.6 L RDW 15.1 H RDW Differential 48.4 H Plt Count 196 MPV 12.4 H Immature Gran % (Auto) 0.600 Neut % (Auto) 48.2 Lymph % (Auto) 24.3 [place] % (Auto) 6.0 Eos % (Auto) 20.7 H Baso % (Auto) 0.2 Absolute Neuts (auto) 3.9 Absolute Lymphs (auto) 1.97 Total Counted Not Reportable Sodium 144 Potassium 4.8 Chloride 116 H Carbon Dioxide 21.0 Anion Gap 7 BUN 52 H Creatinine 3.01 H Estim Creat Clear Calc 27.57 Est GFR (MDRD) Af Amer 27 L Est GFR (MDRD) Non-Af 23 L BUN/Creatinine Ratio 17.3 Glucose 158 H Calcium 8.3 L POC Glucose 06/03/18 06/02/18 06/02/18 05:52 21:32 16:30 POC Glucose 152 H 182 H 164 H 06/02/18 11:18 POC Glucose 186 H Discharge Diet: Low fat/ Low Cholesterol Discharge Activity: Return to Normal Activity Call your doctor if you observe: Fever of 101 or Higher, - - worsening diarrhea. Home Medications: Medications to take at Discharge Aspirin 81 mg PO DAILY 05/14/17 Nitroglycerin [Nitrostat] 0.4 mg SUBLINGUAL Q5M PRN 05/14/17 Oxycodone [Oxyir] 5 mg PO BID PRN PRN 05/14/17 Simvastatin 80 mg PO QHS 05/14/17 Oxygen, Home [Home Oxygen] 2 - 3 lpm NASAL UD #1 unit 05/18/17 Albuterol Aerosols [Ventolin Aerosols] 2.5 mg INHALATION Q4H PRN PRN 09/15/17 Allopurinol [Zyloprim] 300 mg PO DAILY 09/15/17 Cilostazol 50 mg PO BID 09/15/17 Colchicine 0.6 mg PO TID PRN 09/15/17 Ergocalciferol [Vitamin D] 50,000 unit PO Q7D 09/15/17 Finasteride [Proscar] 5 mg PO DAILY 09/15/17 Isosorbide Mononitrate [Imdur] 30 mg PO DAILY 09/15/17 Metoprolol(XL)Succ [Toprol Xl (Beta Vanesa)] 50 mg PO DAILY 09/15/17 Nebulizer [Aeroneb Go Nebulizer] 1 ea MC 4X/DAY 09/15/17 Pantoprazole Sodium [Protonix] 40 mg PO DAILY 09/15/17 Tamsulosin HCl [Flomax] 0.4 mg PO DAILY@1730 09/15/17 hydrALAZINE [Apresoline] 25 mg PO TID 09/15/17 umeclidinium 62.5 mcg/actuation blister powder for inhalation 1 inh INHALATION QDAY #30 ea 04/22/18 Albuterol Inhaler [Ventolin Hfa] 1 - 2 puff INHALATION Q4H PRN PRN 05/12/18 Diazepam [Valium] 5 mg PO DAILY PRN 05/12/18 Insulin Aspart [Novolog Flexpen] 5 units SC TIDCM #0 05/16/18 Insulin Degludec [Tresiba Flextouch U-100] 20 unit SC QHS #0 03/02/19 Sodium Bicarbonate 650 mg PO TID #90 tablet 06/03/18 Vancomcyin 125mg/5mL PO Liquid 125 mg PO Q6 #28 po.syringe 06/03/18 Following Prescrptions Were Given to Patient: Vancomcyin 125mg/5mL PO Liquid 125 mg PO Q6 #28 po.syringe Sodium Bicarbonate 650 mg PO TID #90 tablet Other Amb Orders: Basic Metabolic Profile (BMP) Time Frame: 1 Week, Location: Laboratory Primary Care Physician: Caesar Chavez DO [Primary Care Provider] - Within 2 Weeks Please Follow Up With: Daysi Magana DO When: 2-4 weeks Disposition: Home Minutes spent on discharge:: 40 Patient Condition:: Fair Medical Necessity - Tobacco Use Smoking Status: Current some day smoker Meaningful Use Info Meaningful Use Diagnoses (Choose all that apply): None applicable Code Visit Inpatient E&M: 80743 Disch Hosp
--- NOTE | 2018-06-03 09:51 | DS.PCM_ITS ---
Discharge Date and Diagnosis Date of Admission: 05/30/18 - Primary Discharge Diagnosis 1. Septic shock: POA. 2/2 C.diff. improving. Off Levophed since 06/01. 2. C. diff colitis: improving. On PO vanc and IV flagyl. DC flagyl. Upon discharge: Vanc 125 QID for 10 days. Advance diet. 3. NICK: on CKD. Improved today to 3 (from 7.29). Baseline is around 3. Likely prerenal and ATN. Nephrology follow up. On PO bicarbonate. 4. Hyperkalemia: resolved with kayexalate. - Secondary Discharge Diagnosis Chronic Problems (Last Reviewed 04/21/18 @ 09:45 by Yaquelin Simpson) Chronic hypoxemic respiratory failure (Chronic) 2-3 LPM chronically Colon cancer (Chronic) had surgery with no chemo or radiation at [facility] fall Status post colon resection (Chronic) subtotal for colon CA in the fall at [facility] Hemorrhoids (Chronic) CKD (chronic kidney disease) stage 4, GFR 15-29 ml/min (Chronic) Nicotine dependence, cigarettes, in remission (Chronic) Stage 3 severe COPD by GOLD classification (Chronic) FEV1 37% predicted Heme + stool (Chronic) Anemia of chronic renal failure (Chronic) H/O pneumonectomy (Chronic) Right LL lobectomy due to benign tumor Peripheral vascular disease (Chronic) Radiculopathy affecting upper extremity (Chronic) Iron deficiency anemia (Chronic) Increased PTH level (Chronic) secondary to CRF stage4 Low vitamin D level (Chronic) Paroxysmal atrial fibrillation (Chronic) Nocturnal hypoxia (Chronic) Noncompliance with CPAP treatment (Chronic) LADARIUS (obstructive sleep apnea) (Chronic) Gout (Chronic) History of tobacco abuse (Chronic) quit in April 2017 Hx of CABG (Chronic) x3 2003 Coronary artery disease (Chronic) has had 3 stents.....the last stent he thinks in 2008 Hypertension (Chronic) Diabetes mellitus type 2 in obese (Chronic) Hospital Course and Treatment Imaging Results: Clinical Impression(s) from Imaging Studies Chest X-Ray 05/30/18 10:46 IMPRESSION: Stable, nonacute portable x-ray examination of the chest. Electronically Signed: Yves Lamb MD at 11:38 EDT , Service support , Chest X-Ray 05/30/18 22:41 IMPRESSION: Line in good position, no pneumothorax. Postsurgical changes, possible calcified parenchymal and mediastinal nodules and areas of hyperinflation possible post obstruction. No pulmonary edema, congestive heart failure or confluent pneumonia. Electronically Signed: Angelica Solano MD at 0:00 EDT , Service support , KUB X-Ray 05/31/18 08:16 IMPRESSION: 1. Nonobstructive bowel gas pattern. Possible mild ileus. Electronically Signed: Yves Lamb MD at 10:22 EDT , Service support , Daysi Magana DO: nephrology Nahun Barlow, DO: [facility] Operations: None Procedures: Central line placement Summary of Care Provided: The patient is a 62 year old M with diarrhea nausea and vomiting. Patient presented with acute kidney injury, with a creatinine of 7.69, with a baseline of 2.91. Subsequently developed hypotension and shock due to O was found to be C. difficile colitis. Was on pressors and gradually improved. Patient was on vancomycin orally metronidazole for the C. difficile and that has steadily improved. He was seen in consultation by nephrology who increased patient's bicarb at home to 3 times per day. Today his blood pressure is stable so he can resume his hydralazine and Imdur. His creatinine is back to baseline. Patient will follow up a [facility] as outpatient and follow-up Dr. Magana as outpatient as well. Patient did have a drop in his hemoglobin was here prior to that is certainly due to hemoconcentration but I would need to be followed up as well and possible referral to gastroenterology. Patient did endorse some blood when he wiped. He will need outpt [facility]. [] - Physical Exam General: Alert, No apparent distress HEENT: Atraumatic, Normocephalic Oral: Moist Mucosa, No Gingival or Mucosal Lesions/ Ulcerations Neck: No Nodes, Thyroid Normal Size and Texture Lungs: Clear to auscultation, Normal air movement, No rhonchi, No wheeze Cardiovascular: Regular rate, Regular Rhythm, Normal S1, Normal S2, No murmurs Abdomen: Bowel Sounds Present, Soft, Non Tender, Non-Distended, No Hepato- splenomegaly Extremities: No edema, No Calf Tenderness Skin: No rashes, No breakdown Psych/Mental Status: Normal Affect, Appropriate Vital Signs Temp Pulse Resp BP Pulse Ox 36.8 C 100 18 165/88 H 95 06/03/18 01:54 06/03/18 07:20 06/03/18 07:20 06/03/18 01:54 06/03/18 07:20 Oxygen Flow Rate (L/min) 1 Oxygen Delivery Method Room Air Weight: 101 kg Body Mass Index (BMI) 28.8 Intake and Output for Last 24 Hours 06/01/18 06/02/18 06/03/18 23:59 23:59 23:59 Intake Total 3828.1 / 3828.1 2500 / 2500 3061 / 3061 Output Total 2500 / 2500 1475 / 1475 900 / 900 Balance 1328.1 / 1328.1 1025 / 1025 2161 / 2161 Microbiology Past 72 Hours 05/30/18 18:55 Enteric Bacteriology - Final Stool Laboratory Tests Past 24 Hrs 06/03/18 06/03/18 05:35 05:35 WBC 8.1 RBC 2.99 L Hgb 8.5 L Hct 26.9 L MCV 90.0 MCH 28.4 MCHC 31.6 L RDW 15.1 H RDW Differential 48.4 H Plt Count 196 MPV 12.4 H Immature Gran % (Auto) 0.600 Neut % (Auto) 48.2 Lymph % (Auto) 24.3 [place] % (Auto) 6.0 Eos % (Auto) 20.7 H Baso % (Auto) 0.2 Absolute Neuts (auto) 3.9 Absolute Lymphs (auto) 1.97 Total Counted Not Reportable Sodium 144 Potassium 4.8 Chloride 116 H Carbon Dioxide 21.0 Anion Gap 7 BUN 52 H Creatinine 3.01 H Estim Creat Clear Calc 27.57 Est GFR (MDRD) Af Amer 27 L Est GFR (MDRD) Non-Af 23 L BUN/Creatinine Ratio 17.3 Glucose 158 H Calcium 8.3 L POC Glucose 06/03/18 06/02/18 06/02/18 05:52 21:32 16:30 POC Glucose 152 H 182 H 164 H 06/02/18 11:18 POC Glucose 186 H Discharge Diet: Low fat/ Low Cholesterol Discharge Activity: Return to Normal Activity Call your doctor if you observe: Fever of 101 or Higher, - - worsening diarrhea. Home Medications: Medications to take at Discharge Aspirin 81 mg PO DAILY 05/14/17 Nitroglycerin [Nitrostat] 0.4 mg SUBLINGUAL Q5M PRN 05/14/17 Oxycodone [Oxyir] 5 mg PO BID PRN PRN 05/14/17 Simvastatin 80 mg PO QHS 05/14/17 Oxygen, Home [Home Oxygen] 2 - 3 lpm NASAL UD #1 unit 05/18/17 Albuterol Aerosols [Ventolin Aerosols] 2.5 mg INHALATION Q4H PRN PRN 09/15/17 Allopurinol [Zyloprim] 300 mg PO DAILY 09/15/17 Cilostazol 50 mg PO BID 09/15/17 Colchicine 0.6 mg PO TID PRN 09/15/17 Ergocalciferol [Vitamin D] 50,000 unit PO Q7D 09/15/17 Finasteride [Proscar] 5 mg PO DAILY 09/15/17 Isosorbide Mononitrate [Imdur] 30 mg PO DAILY 09/15/17 Metoprolol(XL)Succ [Toprol Xl (Beta Vanesa)] 50 mg PO DAILY 09/15/17 Nebulizer [Aeroneb Go Nebulizer] 1 ea MC 4X/DAY 09/15/17 Pantoprazole Sodium [Protonix] 40 mg PO DAILY 09/15/17 Tamsulosin HCl [Flomax] 0.4 mg PO DAILY@1730 09/15/17 hydrALAZINE [Apresoline] 25 mg PO TID 09/15/17 umeclidinium 62.5 mcg/actuation blister powder for inhalation 1 inh INHALATION QDAY #30 ea 04/22/18 Albuterol Inhaler [Ventolin Hfa] 1 - 2 puff INHALATION Q4H PRN PRN 05/12/18 Diazepam [Valium] 5 mg PO DAILY PRN 05/12/18 Insulin Aspart [Novolog Flexpen] 5 units SC TIDCM #0 05/16/18 Insulin Degludec [Tresiba Flextouch U-100] 20 unit SC QHS #0 03/02/19 Sodium Bicarbonate 650 mg PO TID #90 tablet 06/03/18 Vancomcyin 125mg/5mL PO Liquid 125 mg PO Q6 #28 po.syringe 06/03/18 Following Prescrptions Were Given to Patient: Vancomcyin 125mg/5mL PO Liquid 125 mg PO Q6 #28 po.syringe Sodium Bicarbonate 650 mg PO TID #90 tablet Other Amb Orders: Basic Metabolic Profile (BMP) Time Frame: 1 Week, Location: Laboratory Primary Care Physician: Caesar Chavez DO [Primary Care Provider] - Within 2 Weeks Please Follow Up With: Daysi Magana DO When: 2-4 weeks Disposition: Home Minutes spent on discharge:: 40 Patient Condition:: Fair Medical Necessity - Tobacco Use Smoking Status: Current some day smoker Meaningful Use Info Meaningful Use Diagnoses (Choose all that apply): None applicable Code Visit Inpatient E&M: 93461 Disch Hosp
--- NOTE | 2018-06-03 10:20 | PCM.PN.INT ---
Subjective: Patient transferred out of the intensive care unit yesterday. No acute issues have been reported. Patient reports one bowel movement overnight. General: Alert, Oriented x3, Cooperative, No apparent distress, - - Obese. No conversational dyspnea noted. HEENT: Atraumatic, PERRLA, EOMI, Normocephalic, - - No scleral icterus or injection noted. Oral: Moist Mucosa, No Gingival or Mucosal Lesions/ Ulcerations Neck: Supple, No JVD, No Nodes, Trachea Midline Lungs: No rhonchi, No wheeze, No rales, Diminished, - - Symmetric expansion. No dullness to percussion. Cardiovascular: Regular rate, Regular Rhythm, Normal S1, Normal S2, No murmurs, No rub noted, No Gallop Abdomen: Bowel Sounds Present, Soft, Non Tender, Non-Distended, Obese Extremities: No clubbing, No cyanosis, Edema - Trace lower extremity Skin: - - No changes from previous Musculoskeletal: No Tenderness to Palpation of Joints or Extremities Lymphatic: No Cervical, Supraclavicular, or Inguinal Adenopathy Neurological: Cranial nerves II-XII grossly intact, Neuro grossly intact, Motor Exam 5/5 strength throughout Psych/Mental Status: Alert and oriented to time, place, person, mood and affect Vital Signs Temp Pulse Resp BP Pulse Ox 36.8 C 100 18 165/88 H 95 06/03/18 01:54 06/03/18 07:20 06/03/18 07:20 06/03/18 01:54 06/03/18 07:20 Oxygen Flow Rate (L/min) 1 Oxygen Delivery Method Room Air Weight: 101 kg Body Mass Index (BMI) 28.8 Intake and Output for Last 24 Hours 06/01/18 06/02/18 06/03/18 23:59 23:59 23:59 Intake Total 3828.1 / 3828.1 2500 / 2500 3061 / 3061 Output Total 2500 / 2500 1475 / 1475 900 / 900 Balance 1328.1 / 1328.1 1025 / 1025 2161 / 2161 Labs (Last 48 Hours) 06/01/18 06/01/18 06/01/18 11:20 17:05 21:19 WBC RBC Hgb Hct MCV MCH MCHC RDW RDW Differential Plt Count MPV Immature Gran % (Auto) Neut % (Auto) Lymph % (Auto) [place] % (Auto) Eos % (Auto) Baso % (Auto) Absolute Neuts (auto) Absolute Lymphs (auto) Total Counted Sodium Potassium Chloride Carbon Dioxide Anion Gap BUN Creatinine Estim Creat Clear Calc Est GFR (MDRD) Af Amer Est GFR (MDRD) Non-Af BUN/Creatinine Ratio Glucose Calcium POC Glucose 190 H 158 H 172 H 06/02/18 06/02/18 06/02/18 04:30 04:30 06:34 WBC 7.8 RBC 3.04 L Hgb 8.6 L Hct 26.8 L MCV 88.2 MCH 28.3 MCHC 32.1 RDW 15.7 H RDW Differential 50.6 H Plt Count 199 MPV 11.7 Immature Gran % (Auto) 0.300 Neut % (Auto) 57.1 Lymph % (Auto) 15.0 L [place] % (Auto) 4.7 Eos % (Auto) 22.6 H Baso % (Auto) 0.3 Absolute Neuts (auto) 4.5 Absolute Lymphs (auto) 1.17 Total Counted Not Reportable Sodium 145 Potassium 5.6 H Chloride 120 H Carbon Dioxide 18.0 L Anion Gap 7 BUN 64 H Creatinine 3.78 H Estim Creat Clear Calc 21.95 Est GFR (MDRD) Af Amer 21 L Est GFR (MDRD) Non-Af 17 L BUN/Creatinine Ratio 16.9 Glucose 169 H Calcium 8.2 L POC Glucose 171 H 06/02/18 06/02/18 06/02/18 11:18 16:30 21:32 WBC RBC Hgb Hct MCV MCH MCHC RDW RDW Differential Plt Count MPV Immature Gran % (Auto) Neut % (Auto) Lymph % (Auto) [place] % (Auto) Eos % (Auto) Baso % (Auto) Absolute Neuts (auto) Absolute Lymphs (auto) Total Counted Sodium Potassium Chloride Carbon Dioxide Anion Gap BUN Creatinine Estim Creat Clear Calc Est GFR (MDRD) Af Amer Est GFR (MDRD) Non-Af BUN/Creatinine Ratio Glucose Calcium POC Glucose 186 H 164 H 182 H 06/03/18 06/03/18 06/03/18 05:35 05:35 05:52 WBC 8.1 RBC 2.99 L Hgb 8.5 L Hct 26.9 L MCV 90.0 MCH 28.4 MCHC 31.6 L RDW 15.1 H RDW Differential 48.4 H Plt Count 196 MPV 12.4 H Immature Gran % (Auto) 0.600 Neut % (Auto) 48.2 Lymph % (Auto) 24.3 [place] % (Auto) 6.0 Eos % (Auto) 20.7 H Baso % (Auto) 0.2 Absolute Neuts (auto) 3.9 Absolute Lymphs (auto) 1.97 Total Counted Not Reportable Sodium 144 Potassium 4.8 Chloride 116 H Carbon Dioxide 21.0 Anion Gap 7 BUN 52 H Creatinine 3.01 H Estim Creat Clear Calc 27.57 Est GFR (MDRD) Af Amer 27 L Est GFR (MDRD) Non-Af 23 L BUN/Creatinine Ratio 17.3 Glucose 158 H Calcium 8.3 L POC Glucose 152 H Medical Necessity - Tobacco Use Smoking Status: Current some day smoker Assessment/Plan All Active Problems (Last Reviewed 04/21/18 @ 09:45 by Yaquelin Simpson) Clostridium difficile colitis (Acute) Gastroenteritis (Acute) NICK (acute kidney injury) (Acute) Hyperkalemia (Acute) Acute renal failure superimposed on stage 4 chronic kidney disease (Acute) Metabolic acidosis (Acute) Acute exacerbation of chronic obstructive pulmonary disease (COPD) (Resolved) Acute respiratory failure with hypoxemia (Resolved) Benign neoplasm of right lung (Resolved) Influenza B (Resolved) Lower GI bleed (Resolved) Severe sepsis (Resolved) Streptococcal pneumonia (Resolved) Urinary retention due to benign prostatic hyperplasia (Resolved) RECOMMENDATIONS: 1. Continue p.o. antibiotics per hospitalist 2. Can continue bronchodilators as an outpatient 3. Hemodynamically stable on room air. Will sign off from a critical care/pulmonary perspective 4. Remove central line prior to discharge 5. No indication for pulmonary follow-up and last workup for COPD/LADARIUS is requested IMPRESSIONS: 1. Septic shock secondary to C. difficile colitis Patient continues to improve. Blood pressures have been stable for over 24 hours. Patient likely does not require supplemental fluids at this time. Defer to hospitalist on timing of p.o. vancomycin. 2. Acute on chronic kidney disease Continues to improve. Likely exacerbated by the patient's hypotension and intravascular volume status. Continue supportive measures as noted above. Patient appears to be tolerating current therapy. Renal function continues to improve. 3. Baseline COPD without exacerbation Continue bronchodilators as ordered. Encourage incentive spirometer use and mobilize patient as tolerated. Patient does not appear to be in exacerbation at this time. Therapeutic substitution for home medications has been ordered. Patient can follow-up as an outpatient for management of COPD if requested 4. Known history of obstructive sleep apnea While the patient has known obstructive sleep apnea, he has been and continues to be noncompliant with the use of nocturnal Pap therapy. This may account for some of patient's nocturnal decrease in saturations 5. Hypertension/hyperlipidemia/gout/pulmonary nodule/tobacco dependency in remission/coronary artery disease status post CABG/history of colon cancer Complicates care, management, recovery and prognosis. May restart antihypertensives in a stepwise fashion. Code Visit Inpatient E&M: 05837 Subs Hosp L2
[2018-06-03] MEDS: Allopurinol 300 MG Tablet PO (10:23)
[2018-06-03] MEDS: Aspirin 81 MG TAB.CHEW PO (10:23)
[2018-06-03] MEDS: Cilostazol 50 MG Tablet PO (10:23)
[2018-06-03] MEDS: Finasteride 5 MG Tablet PO (10:23)
[2018-06-03] MEDS: Pantoprazole Sodium 40 MG Tablet PO (10:24)
[2018-06-03] MEDS: Hydrocortisone 25 MG Suppository RECTAL (10:24)
[2018-06-03 10:25] VITALS: BP 174/98; PULSE 99; RESP 20; TEMP 36.6; O2SAT 96
[2018-06-03] MEDS: 0.9% NaCl PICC Flush IV (12:04)
--- NOTE | 2018-06-03 12:12 | CASEMGMT ---
DEVEN SAAVEDRA NOTE: Reviewed PT/OT notes. Pt has been up independently in room and refused therapy today. To room to talk with pt re: HHC. He states he does feel that he needs HHC at this time. Pt made aware if once he returns home that he feels he would like/benefit from HHC, that he can discuss this with his PCP and arrangements can be made through their office. Shirley PATHAK RN CM
[2018-06-03 12:25] VITALS: BP 174/98; PULSE 86; RESP 16; TEMP 36.5; O2SAT 99
--- NOTE | 2018-06-03 12:44 | NURSING ---
BP still remains high, see Vitals intervention. Cortext Dr. Tucker a message stating patient BP and that he has several BP meds that he takes at home that were not given today to him and if okay for pt to be discharged. Dr. Tucker is okay with still sending pt home but having him take his BP meds once he gets home. states they have a BP machine at home as well. This nurse went over the BP medication that he still needs to take once home.
--- NOTE | 2018-06-03 12:58 | NURSING ---
Blood sugar 167. pt did not eat lunch. pt requesting to not have insulin as he might not have lunch today. pt going home shortly.
[2018-06-03 13:06] LABS: Bedside Glucose 167 mg/dL (70-110)
--- NOTE | 2018-06-04 16:34 | CASEMGMT ---
DEVEN CM Discharge Follow-Up Phone Call. Lace: 13 Strata: 4 Discharge Date: 06/03/18 Adm Dx: Hyperkalemia, Acute on Chronic RF, N/V/D Attempted discharge follow-up phone call. No answer. Message left for pt to return call to CM office if he has any questions about discharge instructions, medications, or appts. CM phone number provided. Shirley PATHAK RN CM
== END 2018-06-03 13:07 | disposition home or self-care (01) | DRG 871 ==
LOC: ED 11:34 → ICU 05-31 13:21 → MS2 06-02 09:03
PROVIDERS: Internal Medicine Nephrology; Admitting Provider Internal Medicine; Emergency Provider Emergency Medicine; Family Provider Family Medicine; PCP Family Medicine; Referring Provider Internal Medicine
DX: A41.89 Other specified sepsis (principal); R65.21 Severe sepsis with septic shock; N17.0 Acute kidney failure with tubular necrosis; A04.72 Enterocolitis due to Clostridium difficile, not specified as recurrent; J96.11 Chronic respiratory failure with hypoxia; N18.4 Chronic kidney disease, stage 4 (severe); E87.5 Hyperkalemia; Z99.81 Dependence on supplemental oxygen; E11.22 Type 2 diabetes mellitus with diabetic chronic kidney disease; J44.9 Chronic obstructive pulmonary disease, unspecified; M10.9 Gout, unspecified; I12.9 Hypertensive chronic kidney disease with stage 1 through stage 4 chronic kidney disease, or unspecified chronic kidney disease; G47.33 Obstructive sleep apnea (adult) (pediatric); I25.10 Atherosclerotic heart disease of native coronary artery without angina pectoris; I73.9 Peripheral vascular disease, unspecified; Z90.49 Acquired absence of other specified parts of digestive tract; Z95.5 Presence of coronary angioplasty implant and graft; Z79.4 Long term (current) use of insulin; Z90.2 Acquired absence of lung [part of]; Z86.018 Personal history of other benign neoplasm; Z95.1 Presence of aortocoronary bypass graft; E86.0 Dehydration; E78.5 Hyperlipidemia, unspecified; E55.9 Vitamin D deficiency, unspecified; K64.9 Unspecified hemorrhoids; Z85.038 Personal history of other malignant neoplasm of large intestine; Z87.891 Personal history of nicotine dependence; D64.9 Anemia, unspecified
CPT/HCPCS: 36415; 71045; 74018; 80048; 80053; 80069; 81001; 82570; 82962; 83605; 83690; 83735; 84100; 84300; 85025; 85027; 87177; 87209; 87493; 87506; 93005; 94640; 97162; 97166; 97530; 97802; 97803; 99283; 99406; J7030; J7040; A4216; Q5106

== ENCOUNTER → 2018-06-08 08:54 | Outpatient (CLI) | payer MEDICARE, SELFPAY ==
[2018-05-30 13:07] VITALS: BMI 28.8
[2018-06-08 09:43] LABS: Absolute Lymphocyte Count 2.02 X10^3/ul (0.83-4.51); Absolute Neutrophil Count 7.7 X10^3/uL (2.0-7.7); Basophil# 0.05 X10^3/uL; Basophil% 0.4 % (0-1); Eosinophil# 0.92 X10^3/uL; Eosinophils% 7.9 % (0-5); Hemoglobin 10.7 g/dl (13.0-16.5); Lymphocyte # 2.02 X10^3/ul (4.0); Lymphocyte % 17.4 % (19-41); Mean Corp Hgb Conc 31.5 g/gl (32-36); Mean Corpuscular Hgb 28.4 pg (27.0-32.0); Mean Corpuscular Volume 90.2 fL (80-94); Monocyte# 0.81 X10^3/uL; Neutrophil # 7.72 X10^3/uL (2.7-7.7); Neutrophil % 66.8 % (47-70); POSITIVE COUNT NO; POSITIVE DIFFERENTIAL NO; POSITIVE MORPHOLOGY NO; Platelet Count 266 K/mm3 (150-450); RBC Distribution Width CV 16.3 % (11.6-14.6); RBC Distribution Width SD 51.3 fl (35.1-43.9); Red Blood Count 3.77 M/mm3 (4.6-6.2); White Blood Count 11.6 K/mm3 (4.4-11.0)
[2018-06-08 09:45] LABS: Protein:Creat Ratio 820 mg/g CRE (0-200)
[2018-06-08 09:55] LABS: Albumin, Serum 3.6 g/dL (3.2-5.0); BUN 33 mg/dL (7-18); Calcium,Total 8.8 mg/dL (8.5-10.1); Chloride 112 mmol/L (98-107); EST Glomerular Filtration Rate 32 mL/min (>60); Est Glom Filt Rate - Afr Amer 39 mL/min (>60); Glucose 141 mg/dL (74-106); Phosphorus 3.6 mg/dL (2.5-4.9); Potassium 4.5 mmol/L (3.5-5.1); Sodium Level 141 mmol/L (136-145)
== END ==
PROVIDERS: Family Provider Family Medicine; PCP Family Medicine; Referring Provider Internal Medicine Nephrology; Visit Provider Internal Medicine Nephrology
DX: E11.21 Type 2 diabetes mellitus with diabetic nephropathy (principal); N18.3 Chronic kidney disease, stage 3 (moderate)
CPT/HCPCS: 36415; 80069; 82570; 84156; 85025

== ENCOUNTER → 2018-06-30 | Outpatient (CLI) | payer MEDICARE, SELFPAY ==
[2018-05-30 13:07] VITALS: BMI 28.8
[2018-06-30 10:03] LABS: Albumin, Serum 3.7 g/dL (3.2-5.0); BUN 27 mg/dL (7-18); BUN/Creat Ratio 12.7 RATIO (10-20); Chloride 110 mmol/L (98-107); Creatinine, Serum 2.12 mg/dL (0.70-1.30); EST Glomerular Filtration Rate 34 mL/min (>60); Est Glom Filt Rate - Afr Amer 41 mL/min (>60); Glucose 255 mg/dL (74-106); Phosphorus 3.2 mg/dL (2.5-4.9); Potassium 4.4 mmol/L (3.5-5.1); Sodium Level 142 mmol/L (136-145)
== END | disposition home or self-care (01) ==
PROVIDERS: Family Provider Family Medicine; PCP Family Medicine; Referring Provider Internal Medicine Nephrology; Visit Provider Internal Medicine Nephrology
DX: N18.3 Chronic kidney disease, stage 3 (moderate) (principal)
CPT/HCPCS: 36415; 80069

== ENCOUNTER → 2018-07-29 | Outpatient (CLI) | payer MEDICARE, SELFPAY ==
[2018-05-30 13:07] VITALS: BMI 28.8
[2018-07-29 14:27] LABS: Hematocrit 44.1 % (40-54); Hemoglobin 14.1 g/dl (13.0-16.5); Mean Corpuscular Hgb 28.1 pg (27.0-32.0); Mean Corpuscular Volume 87.8 fL (80-94); Mean Platelet Vol. 13.3 fl (6.2-12.0); Platelet Count 296 K/mm3 (150-450); RBC Distribution Width CV 15.2 % (11.6-14.6); RBC Distribution Width SD 48.2 fl (35.1-43.9); Red Blood Count 5.02 M/mm3 (4.6-6.2); White Blood Count 13.1 K/mm3 (4.4-11.0)
[2018-07-29 14:30] LABS: Scan Indicated on CBC? Y/N NO
[2018-07-29 14:55] LABS: Albumin, Serum 3.9 g/dL (3.2-5.0); BUN 46 mg/dL (7-18); BUN/Creat Ratio 15.2 RATIO (10-20); Calcium,Total 9.5 mg/dL (8.5-10.1); Chloride 109 mmol/L (98-107); Creatinine, Serum 3.02 mg/dL (0.70-1.30); EST Glomerular Filtration Rate 22 mL/min (>60); Est Glom Filt Rate - Afr Amer 27 mL/min (>60); Ferritin 38 ng/mL (26-388); Glucose 183 mg/dL (74-106); Iron 103 ug/dL (65-175); Iron Binding Capacity,Total 346 ug/dL (250-450); Phosphorus 3.1 mg/dL (2.5-4.9); Potassium 5.2 mmol/L (3.5-5.1); Sodium Level 137 mmol/L (136-145)
== END | disposition home or self-care (01) ==
LOC: LAB 11:29
PROVIDERS: Family Provider Family Medicine; PCP Family Medicine; Referring Provider Internal Medicine Nephrology; Visit Provider Internal Medicine Nephrology
DX: E11.22 Type 2 diabetes mellitus with diabetic chronic kidney disease (principal); N18.3 Chronic kidney disease, stage 3 (moderate); E87.5 Hyperkalemia; D64.9 Anemia, unspecified
CPT/HCPCS: 36415; 80069; 82728; 83540; 83550; 85027

== ENCOUNTER 2018-08-01 09:47 | Inpatient (IN) | payer MEDICARE, SELFPAY ==
[2018-05-30 13:07] VITALS: BMI 28.8
[2018-08-01] VITALS (43 sets, daily range): BP systolic 61–138; BP diastolic 33–80; PULSE 77–126; RESP 13–21; TEMP 35.2–37.6; O2SAT 92–100; BMI 27.1; BMI 29.3
--- NOTE | 2018-08-01 09:57 | EKG12_ITS ---
Test Reason : GEN ILLNESS Blood Pressure : / mmHG Vent. Rate : 096 BPM Atrial Rate : 096 BPM P-R Int : 212 ms QRS Dur : 084 ms QT Int : 330 ms P-R-T Axes : 051 082 022 degrees QTc Int : 416 ms Sinus rhythm with 1st degree A-V block Nonspecific T wave abnormality Confirmed by LAYO ASIF, THU ([id number]), photographic editor KEVIN MORRELL ([id number]) on 08/03/2018 3:58:35 PM Referred By: Daysi Magana Confirmed By:THU VASQUES MD
--- NOTE | 2018-08-01 10:02 | RAD_ITS ---
STUDY: X-RAY CHEST REASON FOR EXAM: Male, 62 years old. Endotracheal tube insertion TECHNIQUE: AP COMPARISON: 05/30/2018 FINDINGS: Endotracheal tube has been placed with the tip terminating 2.9 cm above the vangie. A right subclavian central venous catheter has been placed with the catheter extending into the lower neck, tip not visualized on this exam. Fibrotic and bullous changes of the right upper lobe similar since the prior study. There is no demonstrated pleural abnormality. Normal size heart. Normal mediastinum and elizabeth. Normal visualized pulmonary arteries. Normal visualized aortic arch and descending thoracic aorta. No acute bony process. There is no demonstrated abnormality of the visualized soft tissue structures of the upper abdomen. RAD/Chest 1 View (Portable) IMPRESSION: 1. Right subclavian central venous catheter extends into the right jugular vein/neck. Repositioning recommended. 2. Satisfactory position of endotracheal tube. 3. Bullous and fibrotic changes of the right upper lung field, similar. 4. No airspace consolidation or pneumothorax. Electronically Signed: Yves Lamb MD at 11:45 EDT , Service support ,
--- NOTE | 2018-08-01 10:09 | ED.DCSUM_ITS ---
History of Present Illness Chief Complaint: General Illness Detail of Chief Complaint: Numerous symptoms Informant: Patient Onset: Days Context: Gradual Onset Timing: Continuous Quality: Back pain, weakness, lightheadedness shortness of breath Location: Not applicable Current Severity: Severe Maximum Severity: Severe Worsened by: Nothing in particular Relieved by: Nothing Associated Symptoms: No urine output and read narrative Narrative: Patient is an elderly male with multiple significant past medical problems who feels weak, lightheaded, shortness of breath and significant back pain. He is not a good informant. He was unaware why he has an abdominal surgical scar. He states his sister dropped him off. He is . He states his is not coming to the hospital. He does admit to smoking 1/4 pack of cigarettes a day Capacity - Capacity Assessment Tool Can the patient make a choice & communicate that choice?: No Can the patient understand benefits, risks and alternatives?: No Can the patient make a logical, rational choice?: No Is the choice the patient makes consistent w/ their values?: Unable to Determine Is there an impending, emergent risk to the patient?: Yes Does the patient have an Advance Directive?: Unable to Determine Is there a Surrogate Available?: No i.e. HCPOA: Unable to Determine i.e. close relative (spouse, child, parent, sibling)?: Yes - Attempt made to contact . Sister was informed of patient's condition and need for intubation. She is in agreement with treatment. She will inform his . - Past Medical History (1) Anemia of chronic renal failure Status: Chronic (2) CKD (chronic kidney disease) stage 4, GFR 15-29 ml/min Status: Chronic (3) Chronic hypoxemic respiratory failure Status: Chronic Comment: 2-3 LPM chronically (4) Colon cancer Status: Chronic Comment: had surgery with no chemo or radiation at [facility] fall (5) Coronary artery disease Status: Chronic Comment: has had 3 stents.....the last stent he thinks in 2008 (6) Diabetes mellitus type 2 in obese Status: Chronic (7) H/O pneumonectomy Status: Chronic Comment: Right LL lobectomy due to benign tumor (8) Hypertension Status: Chronic (9) LADARIUS (obstructive sleep apnea) Status: Chronic (10) Paroxysmal atrial fibrillation Status: Chronic (11) Peripheral vascular disease Status: Chronic (12) Stage 3 severe COPD by GOLD classification Status: Chronic Comment: FEV1 37% predicted Past Medical History - Allergies and Home Meds Allergies/Adverse Reactions: Allergies No Known Allergies Allergy (Verified 08/01/18 09:50) Primary Care Physician: Caesar Chavez DO [Primary Care Provider] - Prior records reviewed: Yes Surgical History: angioplasty - stent x2 2003, - - rt lung thoracotomy, lobectomy 2009 for benign tumor Lives: Spouse/ Significant Other Smoking Status: Current some day smoker Alcohol: None Drugs: None - Family History Maternal Family History: Family History (Last Reviewed 04/21/18 @ 09:45 by Yaquelin Simpson) Father Leukemia Mother COPD (chronic obstructive pulmonary disease) Family History: Reports: COPD Paternal Family History: Family History (Last Reviewed 04/21/18 @ 09:45 by Yaquelin Simpson) Father Leukemia Mother COPD (chronic obstructive pulmonary disease) Family History: Reports: Cancer - leukemia, Hypertension Review of Systems ROS: Unable to Obtain - Secondary to critical condition. Patient is perfusion is poor. General: Reports: Malaise Eyes: Denies: Visual changes - bilaterally, Blurred Vision - bilaterally ENT: Denies: Rhinorrhea, Sore throat Cardiovascular: Denies: Chest pain Respiratory: Reports: Dyspnea, Cough, Dyspnea on exertion. Denies: Orthopnea, Paroxysmal nocturnal dyspnea Gastrointestinal: Denies: Abdominal pain, Nausea, Vomiting, Diarrhea, Melena, Hematochezia Genitourinary: Reports: - - No urine output today Musculoskeletal: Reports: Back pain. Denies: Myalgias, Arthralgias, Neck pain, Swelling, Extremity Pain Skin: Denies: Rash Neurological: Reports: Weakness, Parasthesia Endocrine: Denies: Polyuria, Polydipsia Hematologic: Denies: Easy bruising Allergy: Denies: Uticaria, Swelling of the mouth Physical Exam Vital Signs/Narrative: Vital Signs Temp Pulse Resp BP 08/01/18 09:50 97.8 F 108 H 20 H 61/33 L Inital Vital Signs reviewed: Yes General: Well nourished, Well developed, Unkempt, Acute Distress Head: Normocephalic, Atraumatic Eyes: Perrl, EOMI. Negative for: Pale conjunctiva, Scleral icterus ENT: No rhinorrhea, TM's clear, Dry mucous membranes. Negative for: Nasal congestion, Sinus tenderness Neck: Supple, Nontender, No lymphadenopathy, No JVD Cardiovascular: Regular rhythm, No murmurs, Normal S1, Normal S2, Tachycardia Respiratory: Chest nontender, Rales. Negative for: No distress, CTA bilaterally Abdomen: Tender, Guarding, Rebound tenderness, Hypoactive bowel sounds. Negative for: Hyperactive bowel sounds, Hepatomegaly, Splenomegaly, Pulsatile mass, Ventral hernia, Inguinal hernia, Umbilical hernia Rectal: Deferred Back: Nontender, Normal Inspection. Negative for: CVA tenderness, Spinal tenderness Extremities: Nontender, No edema, - - Moderate peripheral arterial disease with absent DP and PT pulse. There is evidence of acrocyanosis. Skin: Cyanosis, Pallor, Rash - Patient is mottled with delayed capillary refill.. Negative for: Normal color, No rash Neurological: Cranial nerves II-XII grossly intact, Normal Strength, Normal Sensation. Negative for: Alert, Normal Gait Psychological: Normal affect Diagnostic/Tx/Re-eval Chest X-Ray - ED: 1 View - Critical care time 58 minutes, Read by ED Physician Endotracheal tube is 2 cm above the vangie. The right subclavian line is pointing upward. There is no evidence of pneumothorax, hemothorax, effusion or infiltrate. Impressions Chest X-Ray 08/01/18 10:02 IMPRESSION: 1. Right subclavian central venous catheter extends into the right jugular vein/neck. Repositioning recommended. 2. Satisfactory position of endotracheal tube. 3. Bullous and fibrotic changes of the right upper lung field, similar. 4. No airspace consolidation or pneumothorax. Electronically Signed: Yves Lamb MD at 11:45 EDT , Service support , 08/01/18 10:02 Chest 1 View (Portable) [RAD] Stat 08/01/18 10:31 Abdomen Complete [US] Stat Laboratory Results 08/01/18 08/01/18 08/01/18 10:13 10:13 10:13 WBC 20.2 H RBC 4.59 L Hgb 13.3 Hct 40.2 MCV 87.6 MCH 29.0 MCHC 33.1 RDW 15.4 H RDW Differential 49.1 H Plt Count 242 MPV 13.6 H Immature Gran % (Auto) 0.700 Neut % (Auto) 63.9 Lymph % (Auto) 15.3 L [place] % (Auto) 7.8 Eos % (Auto) 12.3 H Baso % (Auto) 0.0 Absolute Neuts (auto) 12.9 H Absolute Lymphs (auto) 3.08 Specimen Type Sample Site VBG pH VBG pO2 VBG O2 Sat (Calc) VBG O2 Content VBG Base Excess POC Mix VBG pCO2 Pt Tmp O2 Delivery Device Liter Flow Blood Gas Notified Whom Blood Gas Notified Time Sodium 129 L Potassium 6.2 H* Chloride 102 Carbon Dioxide 12.0 L Anion Gap 15 BUN 104 H* Creatinine 11.70 H* Estim Creat Clear Calc 7.09 Est GFR (MDRD) Af Amer 6 L Est GFR (MDRD) Non-Af 5 L BUN/Creatinine Ratio 8.9 L Glucose 276 H Lactic Acid 2.2 H Calcium 9.1 Total Bilirubin 0.30 AST 12 L ALT 20 Alkaline Phosphatase 191 H Troponin I < 0.015 Total Protein 8.5 H Albumin 3.5 Globulin 5.0 H Albumin/Globulin Ratio 0.7 L 08/01/18 11:04 WBC RBC Hgb Hct MCV MCH MCHC RDW RDW Differential Plt Count MPV Immature Gran % (Auto) Neut % (Auto) Lymph % (Auto) Cory[place] % (Auto) Eos % (Auto) Baso % (Auto) Absolute Neuts (auto) Absolute Lymphs (auto) Specimen Type SHERI Sample Site OTHER VBG pH 7.07 L* VBG pO2 37 VBG O2 Sat (Calc) 49 L VBG O2 Content 11 L VBG Base Excess -20 L POC Mix VBG pCO2 Pt Tmp 35.8 L O2 Delivery Device Nasal Can Liter Flow 2.0 Blood Gas Notified Whom ED MD Blood Gas Notified Time 1102 Sodium Potassium Chloride Carbon Dioxide Anion Gap BUN Creatinine Estim Creat Clear Calc Est GFR (MDRD) Af Amer Est GFR (MDRD) Non-Af BUN/Creatinine Ratio Glucose Lactic Acid Calcium Total Bilirubin AST ALT Alkaline Phosphatase Troponin I Total Protein Albumin Globulin Albumin/Globulin Ratio - EKG Initial EKG Interpretation: Sinus Rhythm - Trickle rate is 96. There is evidence of first- degree AV block. QRS duration normal. QT interval normal. [place] normal. Follow-up EKG Interpretation: Sinus Tachycardia - Ventricular rate 115. Computer is reading ST elevation inferior OR. In my opinion this represents changes consistent with hyperkalemia. We will repeat EKG after patient has been treated appropriately for hyperkalemia. - Medical Decision Making Patient is hypotensive, tachycardic tachypnic. Pulse ox does not read. Will obtain ABG to assess acid-base disturbance as well as oxygenation/PaO2. Because he complains of shortness of breath will obtain chest x-ray. There is no palpable pulsatile mass. There is no history of abdominal aortic aneurysm. Doubt this is the cause of his abdominal/back pain. Need to evaluate for i nfectious cause. With history of colon cancer will need to consider pulmonary embolus in the differential. Patient may also be septic. To evaluate patient's presentation, physical findings EKG, chest x-ray appropriate blood work including ABG was obtained. Blood cultures were obtained. Will place Hoff for accurate I's and O's. He will receive 1 L normal saline wide open. Per review of old records he has history of stage IV renal disease. Last creatinine was 3.02. Creatinine varies between 2 and 3. Also has history of anemia of chronic illness. Last hemoglobin was 14. Patient does not have a palpable pulse. ABG was changed to a VBG. Patient's nurse informed me that the back pain started 1 week ago. Confirmed with patient. Patient has acute on chronic renal failure. Potassium 6.2, BUN 104 and creatinine 11.7. Creatinine 3 days ago was 3.02. Patient was treated for hyperkalemia. He was administered sodium bicarb, regular insulin IV push and D50 as well as calcium chloride. Case discussed with Daysi Magana. She informed me that he was prescribed vancomycin. He was prescribed oral vancomycin for C. difficile according to Dr. Magana. In light of this new information patient received 100 mg of metronidazole and dose of vancomycin via OG. Spoke with Dr. Bonilla informed him of patient. Informed why patient was intubated and his history and physical. Because patient became somnolent remain hypotensive and concern for CO2 retention in light of past history per medical records of stage III COPD and chronic hypoxia he was oral tracheal intubated by RSI technique. He received 20 mg of etomidate and 100 mill grams rocuronium. Succinylcholine was not used because his potassium is elevated. He was administered 5 mg of Ativan after intubation for sedation. Propofol is not appropriate since patient is hypotensive. If your he remains hypotensive and after his 30 cc/kg bolus will order Levophed. Because of patient's hypotension with back pain abdominal ultrasound was ordered to assess for vascular emergency since he is complained of abdominal and back pain. This also may be secondary to poor perfusion. Repeat EKG was obtained because monitor revealed change in his ST segments. And computer is reading STEMI. I am in disagreement. This changes are secondary to patient's hyperkalemia which has not been treated because meds have not arrived from pharmacy. Third EKG was obtained after administration's of meds for hyperkalemia. Patient has sinus tachycardia rate of 129. There is a nonspecific intraventricular conduction delay. There is ST-T wave abnormality noted inferior leads. Will order stat potassium. Patient's pressure did respond to the 30 cc/kg bolus. I was informed at 1150 the patient's blood pressure is 134 systolic. He no longer appears mottled. Capillary refill has normalized. Will contact hospitalist for admission to ICU. - Critical Care Time Critical care time (excluding procedures): 30-74 minutes, Discussing w/Patient &/or Family/Management Liaison, Discussing w/Consultants, Arranging Admission or Transfer, Performing Direct Patient Care at Bedside Procedures Procedure(s): Patient had a right subclavian line placed. He was not able to give verbal consent because he was somnolent and status deteriorated. He is hemodynamically unstable. Patient was prepped draped sterile manner and central line protocol was adhered to. All occupants assistance in the room wore a cap and mask. Vessel was cannulated. The vessel was cannulated on third attempt. Using Seldinger technique 7.5 [place] triple-lumen was placed. Blood was aspirated from all 3 ports. Chest x-ray reveals the catheter went cephalad and not caudal. Because patient is hemodynamically unstable will not remove line at this point. Patient was oral tracheal intubated by RSI technique. Patient received 20 mg etomidate and 100 mill grams rocuronium. Using glide scope 7.5 [place] endotracheal tube was placed without difficulty. There is appropriate color change. Breath sounds are noted bilaterally. Chest x-ray confirms proper position. ED Disposition - Plan for ED Patient: Diagnosis: Hypotension, unspecified, Severe sepsis, Pseudomembranous enterocolitis, Acute renal failure superimposed on stage 3 chronic kidney disease, Hyperkalemia, diminished renal excretion, Cholelithiasis, Infectious encephalopathy, Uremia of renal origin, Hyperglycemia due to type 2 diabetes mellitus Referrals: Caesar Chavez DO [Primary Care Provider] -
[2018-08-01] MEDS: 0.9% Normal Saline 1,000 ML 1000 ML IV (10:15)
--- NOTE | 2018-08-01 10:31 | US_ITS ---
STUDY: ABDOMINAL ULTRASOUND REASON FOR EXAM: Male, 62 years old. Abdominal pain TECHNIQUE: Transabdominal ultrasound was performed with real-time and static yap scale imaging. TECHNICAL QUALITY: Limited. Examination limited due to the patient?s condition. COMPARISON: None. FINDINGS: Liver: The liver measures 18 cm. There is normal echogenicity of the liver. The bile ducts are within normal limits. There is hepatic color flow. The direction of portal flow is hepatopetal. There is no demonstrated mass lesion. Gallbladder: Normal distended gallbladder. The gallbladder wall measures 3.0 mm. There is a negative sonographic Can's sign. There is no pericholecystic fluid. There is a solitary echogenic gallstone within the gallbladder. Common Bile Duct (C.B.D.): The common bile duct measures 3.0 mm. Pancreas: There is normal echogenicity of the visualized pancreas. There is no demonstrated pancreatic mass or cyst. Spleen: Normal size of the spleen. The spleen measures 11.7 x 4.1 x 4.4 cm. Right Kidney: Normal size of the right kidney. The right kidney measures 10.3 x 5.5 x 5.0 cm. Normal renal cortex. The right cortex measures 1.4 cm. There is no demonstrated renal mass or cyst. There is no right hydronephrosis. Left Kidney: Normal size of the left kidney. The left kidney measures 11.1 x 4.9 x 6.3 cm. Normal renal cortex. The left cortex measures 1.1 cm. There is no demonstrated renal mass or cyst. There is no left hydronephrosis. Aorta: Atherosclerosis but no evidence of aneurysm. I.V.C.: The IVC is patent. There is no ascites. US/Abdomen Complete IMPRESSION: 1. Solitary gallstone without sonographic evidence of acute cholecystitis. 2. Mild hepatomegaly. Electronically Signed: Yves Lamb MD at 12:15 EDT , Service support ,
[2018-08-01 10:56] LABS: Lactic Acid 2.2 mmol/L (0.4-2.0)
[2018-08-01 10:59] LABS: ALB/GLOB Ratio 0.7 RATIO (0.9-2.4); AST(SGOT) 12 U/L (15-37); Alanine Aminotransfer ALT/SGPT 20 U/L (16-61); Albumin, Serum 3.5 g/dL (3.2-5.0); Alkaline Phosphatase 191 U/L (45-117); Anion Gap 15 (5-15); BUN 104 mg/dL (7-18); BUN/Creat Ratio 8.9 RATIO (10-20); Calcium,Total 9.1 mg/dL (8.5-10.1); Chloride 102 mmol/L (98-107); EST Glomerular Filtration Rate 5 mL/min (>60); Est Glom Filt Rate - Afr Amer 6 mL/min (>60); Estimated Creatinine Clearance 7.09 ml/min; Glucose 276 mg/dL (74-106); Potassium 6.2 mmol/L (3.5-5.1); Protein, Total 8.5 g/dL (6.4-8.2); Sodium Level 129 mmol/L (136-145)
[2018-08-01] MEDS: 0.9% Normal Saline 1,000 ML 999 ML IV ×2 (11:00→11:45)
[2018-08-01 11:10] LABS: Blood Gas Specimen Type VEN; O2 Delivery Device Nasal Can; SITE OTHER; Time Given 1102; VBG BASE EXCESS -20 mmol/L (-1.0-3.5); VBG Bicarbonate 10 mmol/L (22-26); VBG Oxygen Content 11 mmol/L (23-33); VBG PO2 37 mmHg (25-40); VBG SO2 49 % (50-70); VBG pCO2 35.8 mmHg (41-51); VBG pH 7.07 (7.32-7.42)
[2018-08-01] MEDS: Etomidate 20 MG/10 ML Vial IV (11:10)
[2018-08-01] MEDS: Rocuronium Bromide 50 MG/5 ML Vial 100 MG IV (11:10)
[2018-08-01] MEDS: Sodium Bicarbonate 8.4% 50 ML Syringe 50 MEQ IV ×2 (11:27→13:20)
[2018-08-01] MEDS: Calcium Chloride 1 GM/10 ML Syringe IV ×2 (11:27→13:20)
[2018-08-01] MEDS: Dextrose 50%-Water 25 GM/50 ML DISP.SYRIN IV ×2 (11:27→13:20)
[2018-08-01 11:54] LABS: Absolute Lymphocyte Count 3.08 X10^3/ul (0.83-4.51); Absolute Neutrophil Count 12.9 X10^3/uL (2.0-7.7); Basophil# 0.01 X10^3/uL; Differential Indicated SCAN CRITERIA MET; Eosinophil# 2.48 X10^3/uL; Eosinophils% 12.3 % (0-5); Hematocrit 40.2 % (40-54); Hemoglobin 13.3 g/dl (13.0-16.5); Lymphocyte # 3.08 X10^3/ul (4.0); Lymphocyte % 15.3 % (19-41); Mean Corp Hgb Conc 33.1 g/gl (32-36); Mean Corpuscular Volume 87.6 fL (80-94); Mean Platelet Vol. 13.6 fl (6.2-12.0); Monocyte# 1.58 X10^3/uL; Monocyte% 7.8 % (0-10); Neutrophil # 12.88 X10^3/uL (2.7-7.7); Neutrophil % 63.9 % (47-70); POSITIVE COUNT NO; POSITIVE DIFFERENTIAL YES; POSITIVE MORPHOLOGY YES; Platelet Count 242 K/mm3 (150-450); RBC Distribution Width CV 15.4 % (11.6-14.6); RBC Distribution Width SD 49.1 fl (35.1-43.9); Red Blood Count 4.59 M/mm3 (4.6-6.2); White Blood Count 20.2 K/mm3 (4.4-11.0)
--- NOTE | 2018-08-01 11:55 | EKG12_ITS ---
Test Reason : REPEAT EKG Blood Pressure : / mmHG Vent. Rate : 115 BPM Atrial Rate : 115 BPM P-R Int : 172 ms QRS Dur : 112 ms QT Int : 340 ms P-R-T Axes : 063 103 -58 degrees QTc Int : 470 ms Sinus tachycardia Rightward axis Nonspecific intra ventricular conduction delay T wave abnormality-consider inferior ischemia Abnormal ECG Confirmed by LAYO ASIF, THU ([id number]), editor [employer] journal KEVIN MORRELL ([id number]) on 08/03/2018 4:00:06 PM Referred By: Daysi Magana Confirmed By:THU VASQUES MD
[2018-08-01] MEDS: LORazepam 2 MG/ML Syringe 5 MG IV (12:08)
[2018-08-01 12:14] LABS: Potassium 6.6 mmol/L (3.5-5.1)
--- NOTE | 2018-08-01 12:19 | ED.RN ---
LAB CALLS WITH CRITICAL RESULT, POTASSIUM 6.6, DR. DEVI MADE AWARE.
[2018-08-01 12:20] LABS: Platelet Morphology LARGE
--- NOTE | 2018-08-01 12:31 | EKG12_ITS ---
Test Reason : REPEAT Blood Pressure : / mmHG Vent. Rate : 129 BPM Atrial Rate : 129 BPM P-R Int : 148 ms QRS Dur : 130 ms QT Int : 310 ms P-R-T Axes : 073 101 -66 degrees QTc Int : 454 ms Sinus tachycardia Rightward axis Non-specific intra-ventricular conduction block T wave abnormality, consider inferior ischemia Abnormal ECG Confirmed by LAYO ASIF, THU ([id number]), editor managing newspaper KEVIN MORRELL ([id number]) on 08/03/2018 4:00:40 PM Referred By: Daysi Magana Confirmed By:THU VASQUES MD
[2018-08-01 12:35] LABS: Bacteria 0 SEEN /hpf (None Seen); Mucous, Urine 0 SEEN /hpf (<or=2+); Red Blood Cells-Urine 0 SEEN /hpf (0-5); Squamous Epithelial Cells - UA 0 SEEN /hpf (0-5)
[2018-08-01 12:38] LABS: Color, Urine Yellow (Yellow); Glucose, Dipstick 100 mg/dl (Normal); Ketone-Dipstick Negative (Negative); Leukocyte Esterase-Dipstick 500 /ul (Negative); Nitrite-Dipstick Negative (Negative); Occult Blood-Urine 25 /ul (Negative); Protein-Dipstick 100 mg/dl (Negative); Urine Bilirubin Dipstick Negative (Negative); Urine Clarity Cloudy (Clear); Urine Urobilinogen Normal (Normal)
[2018-08-01 12:46] LABS: White Blood Cells >100 SEEN /hpf (0-5)
[2018-08-01] MEDS: 0.9% Normal Saline 1,000 ML 125 ML IV (12:46)
--- NOTE | 2018-08-01 13:02 | PCM.HP.STD ---
Problem List (1) Septic shock Status: Acute (2) NICK (acute kidney injury) Status: Acute (3) C. difficile colitis Status: Acute (4) Hyperkalemia Status: Acute (5) Metabolic acidosis Status: Acute (6) Hyponatremia Status: Acute (7) NICK (acute kidney injury) Status: Acute History of Present Illness Date of Admission: 08/01/18 Chief Complaint: no feeling well The patient is a 62 year old M presents with shortness of breath. Patient has been recently treated for C. difficile, to which she has had before with vancomycin. He presented to the emergency room and was initially hypotensive with a systolic in the 60s. He was apparently mottled and had a venous blood gas that showed a pH of 7.07. Patient was emergently intubated. Patient blood pressure did improve with IV fluids. Patient had a BMP that showed a sodium 129, potassium 6.6, and a creatinine of 11.7. Right subclavian troponin catheter was placed and shows that the catheter is going into the internal jugular vein. Emergency room physician, Dr. Smith, stated that the patient is critically ill and did not warrant change of the catheter despite improper placement. Patient despite being critically ill with what appeared to be C. difficile colitis received 125 mg of vancomycin and 500 mg of metronidazole. Given the what looks like metabolic acidosis, patient did receive sodium bicarb, insulin for the hyperkalemia, lorazepam. Patient being admitted to the ICU. History is obtained through the emergency room physician as well as bedside nurses. Patient is intubated sedated on to be provide any history whatsoever. [] Past Medical History Past Medical History (Chronic Problems): Chronic Problems (Last Reviewed 04/21/18 @ 09:45 by Yaquelin Simpson) Acute renal failure superimposed on stage 3 chronic kidney disease (Chronic) Chronic hypoxemic respiratory failure (Chronic) 2-3 LPM chronically Colon cancer (Chronic) had surgery with no chemo or radiation at [facility] fall Status post colon resection (Chronic) subtotal for colon CA in the fall at [facility] Hemorrhoids (Chronic) CKD (chronic kidney disease) stage 4, GFR 15-29 ml/min (Chronic) Nicotine dependence, cigarettes, in remission (Chronic) Stage 3 severe COPD by GOLD classification (Chronic) FEV1 37% predicted Heme + stool (Chronic) Anemia of chronic renal failure (Chronic) H/O pneumonectomy (Chronic) Right LL lobectomy due to benign tumor Peripheral vascular disease (Chronic) Radiculopathy affecting upper extremity (Chronic) Iron deficiency anemia (Chronic) Increased PTH level (Chronic) secondary to CRF stage4 Low vitamin D level (Chronic) Paroxysmal atrial fibrillation (Chronic) Nocturnal hypoxia (Chronic) Noncompliance with CPAP treatment (Chronic) LADARIUS (obstructive sleep apnea) (Chronic) Gout (Chronic) History of tobacco abuse (Chronic) quit in April 2017 Hx of CABG (Chronic) 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 Coronary artery disease (Chronic) has had 3 stents.....the last stent he thinks in 2008 Hypertension (Chronic) Diabetes mellitus type 2 in obese (Chronic) Medical History: Medical History (Last Reviewed 08/01/18 @ 13:11 by Jose J Tucker DO) Nicotine dependence, cigarettes, in remission (Chronic) F17.211 Heme + stool (Chronic) R19.5 Acute renal failure superimposed on stage 4 chronic kidney disease (Acute) N17.9, N18.4 Radiculopathy affecting upper extremity (Chronic) M54.10 Iron deficiency anemia (Chronic) D50.9 Increased PTH level (Chronic) E34.9 secondary to CRF stage4 Metabolic acidosis (Acute) E87.2 Low vitamin D level (Chronic) E55.9 Paroxysmal atrial fibrillation (Chronic) I48.0 Nocturnal hypoxia (Chronic) G47.34 Noncompliance with CPAP treatment (Chronic) Z91.14 LADARIUS (obstructive sleep apnea) (Chronic) G47.33 Gout (Chronic) M10.9 History of tobacco abuse (Chronic) Z87.891 quit in April 2017 Coronary artery disease (Chronic) I25.10 has had 3 stents.....the last stent he thinks in 2008 Hypertension (Chronic) I10 Diabetes mellitus type 2 in obese (Chronic) E11.69, E66.9 Colon cancer C18.9 Acute exacerbation of chronic obstructive pulmonary disease (COPD) (Resolved) J44.1 Acute respiratory failure with hypoxemia (Resolved) J96.01 Influenza B (Resolved) J10.1 Lower GI bleed (Resolved) K92.2 Severe sepsis (Resolved) A41.9, R65.20 Streptococcal pneumonia (Resolved) J15.4 Urinary retention due to benign prostatic hyperplasia (Resolved) N40.1, R33.8 NSAID long-term use (Inactive) Z79.1 Non-STEMI (non-ST elevated myocardial infarction) (Inactive) I21.4 Allergies No Known Allergies Allergy (Verified 08/01/18 09:50) Home Medications: Ambulatory Orders Medication Instructions Recorded Aspirin 81 mg PO DAILY 05/14/17 Nitroglycerin (INPATIENT USE) 0.4 mg SUBLINGUAL Q5M PRN 05/14/17 [Nitrostat] Oxycodone [Oxyir] 5 mg PO BID PRN PRN 05/14/17 Simvastatin 80 mg PO QHS 05/14/17 Oxygen, Home [Home Oxygen] 2 - 3 lpm NASAL UD #1 unit 05/18/17 Albuterol Aerosols [Ventolin 2.5 mg INHALATION Q4H PRN PRN 09/15/17 Aerosols] Allopurinol [Zyloprim] 300 mg PO DAILY 09/15/17 Cilostazol 50 mg PO BID 09/15/17 Colchicine 0.6 mg PO TID PRN 09/15/17 Ergocalciferol [Vitamin D] 50,000 unit PO Q7D 09/15/17 Finasteride [Proscar] 5 mg PO DAILY 09/15/17 Isosorbide Mononitrate [Imdur] 30 mg PO DAILY 09/15/17 Metoprolol(XL)Succ [Toprol Xl 50 mg PO DAILY 09/15/17 (Beta Vanesa)] Nebulizer [Aeroneb Go Nebulizer] 1 ea MC 4X/DAY 09/15/17 Pantoprazole Sodium [Protonix] 40 mg PO DAILY 09/15/17 Tamsulosin HCl [Flomax] 0.4 mg PO DAILY@1730 09/15/17 hydrALAZINE [Apresoline] 25 mg PO TID 09/15/17 umeclidinium 62.5 mcg/actuation 1 inh INHALATION QDAY #30 ea 04/22/18 blister powder for inhalation Albuterol Inhaler [Ventolin Hfa] 1 - 2 puff INHALATION Q4H PRN PRN 05/12/18 Diazepam [Valium] 5 mg PO DAILY PRN 05/12/18 Insulin Aspart [Novolog Flexpen] 5 units SC TIDCM #0 05/16/18 Insulin Degludec [Tresiba 20 unit SC QHS #0 05/16/18 Flextouch U-100] Sodium Bicarbonate 650 mg PO TID #90 tablet 06/03/18 Vancomcyin 125mg/5mL PO Liquid 125 mg PO Q6 #28 po.syringe 06/03/18 Surgical History: Surgical History (Last Reviewed 08/01/18 @ 13:11 by Jose J Tucker DO) Hx of CABG (Chronic) Z95.1 x3 2003 H/O colectomy Z90.49 3/4 of colon, 12/2017, Dr. Alvarado with [facility] S/P removal of lung Z90.2 3/4 of right lung was removed by Dr. Todd in [facility] 11/2009 Surgical History: angioplasty - stent x2 2003, - - rt lung thoracotomy, lobectomy 2009 for benign tumor Lives: Spouse/ Significant Other Smoking Status: Current some day smoker Alcohol: None Drugs: None - *Family History Maternal Family History: Family History (Last Reviewed 08/01/18 @ 13:11 by Jose J Tucker DO) Father Leukemia Mother COPD (chronic obstructive pulmonary disease) History Items: COPD Paternal Family History: Family History (Last Reviewed 08/01/18 @ 13:11 by Jose J Tucker DO) Father Leukemia Mother COPD (chronic obstructive pulmonary disease) History Items: Cancer - leukemia, Hypertension Review of Systems Comment: Unable to obtain as the patient is intubated and sedated. VTE Information - Inpt Only VTE Present on Admission: No VTE Pharm Prophylaxis ordered?: Yes Patient Problems: Active and Suspected Problems (Last Reviewed 04/21/18 @ 09:45 by Yaquelin Simpson) Hypotension, unspecified (Acute) Severe sepsis (Acute) Pseudomembranous enterocolitis (Acute) Hyperkalemia, diminished renal excretion (Acute) Cholelithiasis (Acute) Infectious encephalopathy (Acute) Uremia of renal origin (Acute) Hyperglycemia due to type 2 diabetes mellitus (Acute) Septic shock (Acute) NICK (acute kidney injury) (Acute) C. difficile colitis (Acute) Hyperkalemia (Acute) Metabolic acidosis (Acute) Hyponatremia (Acute) - Physical Exam General: - - Intubated and sedated. HEENT: Atraumatic, Normocephalic, - - No icterus. Oral: Moist Mucosa, No Gingival or Mucosal Lesions/ Ulcerations, - - Endotracheal tube and orogastric tube in place Neck: No Nodes, Thyroid Normal Size and Texture Lungs: Diminished, - - Coarse breath sounds Cardiovascular: No murmurs, No Gallop, Tachycardic Abdomen: Soft, Non Tender, Non-Distended, Hypoactive Bowel Sounds Extremities: No edema, No Calf Tenderness, Peripheral Pulses Normal Skin: No rashes, No breakdown Musculoskeletal: No Tenderness to Palpation of Joints or Extremities, No Muscle Wasting Neurological: - - No clonus. Vital Signs Temp Pulse Resp BP Pulse Ox 36.6 C 126 H 14 87/60 L 100 08/01/18 09:50 08/01/18 11:30 08/01/18 11:30 08/01/18 11:24 08/01/18 11:30 Oxygen Flow Rate (L/min) 2 Oxygen Delivery Method Mechanical Ventilator Weight: 90.718 kg Body Mass Index (BMI) 27.1 Laboratory Tests Past 24 Hrs 08/01/18 08/01/18 08/01/18 10:13 10:13 10:13 WBC 20.2 H RBC 4.59 L Hgb 13.3 Hct 40.2 MCV 87.6 MCH 29.0 MCHC 33.1 RDW 15.4 H RDW Differential 49.1 H Plt Count 242 MPV 13.6 H Immature Gran % (Auto) 0.700 Neut % (Auto) 63.9 Lymph % (Auto) 15.3 L Kane % (Auto) 7.8 Eos % (Auto) 12.3 H Baso % (Auto) 0.0 Absolute Neuts (auto) 12.9 H Absolute Lymphs (auto) 3.08 Total Counted Not Reportable Plt Morphology Comment LARGE Specimen Type Sample Site VBG pH VBG pO2 VBG O2 Sat (Calc) VBG O2 Content VBG Base Excess POC Mix VBG pCO2 Pt Tmp O2 Delivery Device Liter Flow Blood Gas Notified Whom Blood Gas Notified Time Sodium 129 L Potassium 6.2 H* Chloride 102 Carbon Dioxide 12.0 L Anion Gap 15 BUN 104 H* Creatinine 11.70 H* Estim Creat Clear Calc 7.09 Est GFR (MDRD) Af Amer 6 L Est GFR (MDRD) Non-Af 5 L BUN/Creatinine Ratio 8.9 L Glucose 276 H Lactic Acid 2.2 H Calcium 9.1 Total Bilirubin 0.30 AST 12 L ALT 20 Alkaline Phosphatase 191 H Troponin I < 0.015 Total Protein 8.5 H Albumin 3.5 Globulin 5.0 H Albumin/Globulin Ratio 0.7 L Urine Color Urine Clarity Urine pH Ur Specific Siren Urine Protein Urine Glucose (UA) Urine Ketones Urine Occult Blood Urine Nitrite Urine Bilirubin Urine Urobilinogen Ur Leukocyte Esterase Urine RBC Urine WBC Ur Squamous Epith Cells Urine Bacteria Urine Mucus 08/01/18 08/01/18 08/01/18 11:04 11:50 12:30 WBC RBC Hgb Hct MCV MCH MCHC RDW RDW Differential Plt Count MPV Immature Gran % (Auto) Neut % (Auto) Lymph % (Auto) Kane % (Auto) Eos % (Auto) Baso % (Auto) Absolute Neuts (auto) Absolute Lymphs (auto) Total Counted Plt Morphology Comment Specimen Type SHERI Sample Site OTHER VBG pH 7.07 L* VBG pO2 37 VBG O2 Sat (Calc) 49 L VBG O2 Content 11 L VBG Base Excess -20 L POC Mix VBG pCO2 Pt Tmp 35.8 L O2 Delivery Device Nasal Can Liter Flow 2.0 Blood Gas Notified Whom ED Blood Gas Notified Time 1102 Sodium Potassium 6.6 H* Chloride Carbon Dioxide Anion Gap BUN Creatinine Estim Creat Clear Calc Est GFR (MDRD) Af Amer Est GFR (MDRD) Non-Af BUN/Creatinine Ratio Glucose Lactic Acid Calcium Total Bilirubin AST ALT Alkaline Phosphatase Troponin I Total Protein Albumin Globulin Albumin/Globulin Ratio Urine Color Yellow Urine Clarity Cloudy Urine pH 5.0 Ur Specific Siren 1.020 Urine Protein 100 H Urine Glucose (UA) 100 H Urine Ketones Negative Urine Occult Blood 25 H Urine Nitrite Negative Urine Bilirubin Negative Urine Urobilinogen Normal Ur Leukocyte Esterase 500 H Urine RBC 0 SEEN Urine WBC >100 SEEN Ur Squamous Epith Cells 0 SEEN Urine Bacteria 0 SEEN Urine Mucus 0 SEEN Clinical Impression(s) from Imaging Studies Chest X-Ray 08/01/18 10:02 IMPRESSION: 1. Right subclavian central venous catheter extends into the right jugular vein/neck. Repositioning recommended. 2. Satisfactory position of endotracheal tube. 3. Bullous and fibrotic changes of the right upper lung field, similar. 4. No airspace consolidation or pneumothorax. Electronically Signed: Yves Lamb MD at 11:45 EDT , Service support , Abdomen Ultrasound 08/01/18 10:31 IMPRESSION: 1. Solitary gallstone without sonographic evidence of acute cholecystitis. 2. Mild hepatomegaly. Electronically Signed: Yves Lamb MD at 12:15 EDT , Service support , Assessment/Plan All Active Problems (Last Reviewed 04/21/18 @ 09:45 by Yaquelin Simpson) Hypotension, unspecified (Acute) Severe sepsis (Acute) Pseudomembranous enterocolitis (Acute) Hyperkalemia, diminished renal excretion (Acute) Cholelithiasis (Acute) Infectious encephalopathy (Acute) Uremia of renal origin (Acute) Hyperglycemia due to type 2 diabetes mellitus (Acute) Septic shock (Acute) NICK (acute kidney injury) (Acute) C. difficile colitis (Acute) Hyperkalemia (Acute) Metabolic acidosis (Acute) Hyponatremia (Acute) Clostridium difficile colitis (Acute) Gastroenteritis (Acute) NICK (acute kidney injury) (Acute) Hyperkalemia (Acute) Acute renal failure superimposed on stage 4 chronic kidney disease (Acute) Metabolic acidosis (Acute) Acute exacerbation of chronic obstructive pulmonary disease (COPD) (Resolved) Acute respiratory failure with hypoxemia (Resolved) Benign neoplasm of right lung (Resolved) Influenza B (Resolved) Lower GI bleed (Resolved) Severe sepsis (Resolved) Streptococcal pneumonia (Resolved) Urinary retention due to benign prostatic hyperplasia (Resolved) 1. Severe Sepsis Present on admission Blood pressure has improved with IV fluids secondary to C. difficile colitis Supportive management Abdominal ultrasound performed and was unremarkable. Chest x-ray shows no infiltrate. Urinalysis is negative. Blood cultures drawn and pending at the time of this dictation. Given that the patient has been recently treated for C. difficile and does have a history of C. difficile, will hold off any additional antibiotics as he can only complicate his treatment for C. difficile. The patient does require vasopressors the patient has become hypotensive and has persistent lactic acidosis and patient will meet criteria for septic shock. 2. C. difficile colitis Patient be on oral vancomycin 500 mg every 6 hours, as noted previously or he received 25 in the emergency room. Initially the vancomycin can be weaned down to the 125mg 4 times daily Also, patient will be on metronidazole. Check stool studies 3. Somnolence Patient was not intubated but I can see no demented hypoxia though his venous blood gas oxygen was low at 49. On the vent and vent management but will be per critical care medicine. Patient will be sedated per protocol to maintain the patient can remain on the vent until he can have spontaneous breathing trial in which he is able to declare himself safe enough to take off the ventilator. 4. Metabolic acidosis Likely due to the renal failure and other less light derangements Patient has received bicarbonate We will follow-up another BMP Check an ABG as well 5. Acute kidney injury Likely prerenal in etiology IV fluids Nephrology has been contacted by the ER Baseline creatinine is around 2.1, patient was 3.02 on the 6. Hyperkalemia likely secondary to metabolic acidosis Patient did receive bicarbonate as well as insulin Will recheck BMP to see the patient may need Kayexalate 7. Hyponatremia Suspect due to volume depletion IV fluids Reevaluate 8. Malpositioned central catheter As previous dimension, stated by the emergency room physician that would not have any adjustments to the subclavian triple lumen catheter and running into the right ipsilateral internal jugular vein. Patient is currently on no pressors but given the poor positioning and the requirement for additional IV fluids, antibiotics and other sedating medications it is most appropriate that the patient have a central line that is in proper position. I have advised the emergency room staff to get a peripheral IV, they were not, so I instructed them to remove the subclavian triple lumen catheter. I will attempt to place a right internal jugular catheter under ultrasound guidance in the intensive care unit once patient arrives. 9.VTE prophylaxis: Subcu heparin. Code Visit Inpatient E&M: 17273 Init Hosp L3
--- NOTE | 2018-08-01 13:11 | HP.PCM_ITS ---
Problem List (1) Septic shock Status: Acute (2) NICK (acute kidney injury) Status: Acute (3) C. difficile colitis Status: Acute (4) Hyperkalemia Status: Acute (5) Metabolic acidosis Status: Acute (6) Hyponatremia Status: Acute (7) NICK (acute kidney injury) Status: Acute History of Present Illness Date of Admission: 08/01/18 Chief Complaint: no feeling well The patient is a 62 year old M presents with shortness of breath. Patient has been recently treated for C. difficile, to which she has had before with vancomycin. He presented to the emergency room and was initially hypotensive with a systolic in the 60s. He was apparently mottled and had a venous blood gas that showed a pH of 7.07. Patient was emergently intubated. Patient blood pressure did improve with IV fluids. Patient had a BMP that showed a sodium 129, potassium 6.6, and a creatinine of 11.7. Right subclavian troponin catheter was placed and shows that the catheter is going into the internal jugular vein. Emergency room physician, Dr. Smith, stated that the patient is critically ill and did not warrant change of the catheter despite improper placement. Patient despite being critically ill with what appeared to be C. d ifficile colitis received 125 mg of vancomycin and 500 mg of metronidazole. Given the what looks like metabolic acidosis, patient did receive sodium bicarb, insulin for the hyperkalemia, lorazepam. Patient being admitted to the ICU. History is obtained through the emergency room physician as well as bedside nurses. Patient is intubated sedated on to be provide any history whatsoever. [] Past Medical History Past Medical History (Chronic Problems): Chronic Problems (Last Reviewed 04/21/18 @ 09:45 by Yaquelin Simpson) Acute renal failure superimposed on stage 3 chronic kidney disease (Chronic) Chronic hypoxemic respiratory failure (Chronic) 2-3 LPM chronically Colon cancer (Chronic) had surgery with no chemo or radiation at [facility] fall Status post colon resection (Chronic) subtotal for colon CA in the fall at [facility] Hemorrhoids (Chronic) CKD (chronic kidney disease) stage 4, GFR 15-29 ml/min (Chronic) Nicotine dependence, cigarettes, in remission (Chronic) Stage 3 severe COPD by GOLD classification (Chronic) FEV1 37% predicted Heme + stool (Chronic) Anemia of chronic renal failure (Chronic) H/O pneumonectomy (Chronic) Right LL lobectomy due to benign tumor Peripheral vascular disease (Chronic) Radiculopathy affecting upper extremity (Chronic) Iron deficiency anemia (Chronic) Increased PTH level (Chronic) secondary to CRF stage4 Low vitamin D level (Chronic) Paroxysmal atrial fibrillation (Chronic) Nocturnal hypoxia (Chronic) Noncompliance with CPAP treatment (Chronic) LADARIUS (obstructive sleep apnea) (Chronic) Gout (Chronic) History of tobacco abuse (Chronic) quit in April 2017 Hx of CABG (Chronic) x3 2004 Coronary artery disease (Chronic) has had 3 stents.....the last stent he thinks in 2008 Hypertension (Chronic) Diabetes mellitus type 2 in obese (Chronic) Medical History: Medical History (Last Reviewed 08/01/18 @ 13:11 by Jose J Tucker DO) Nicotine dependence, cigarettes, in remission (Chronic) F17.211 Heme + stool (Chronic) R19.5 Acute renal failure superimposed on stage 4 chronic kidney disease (Acute) N17.9, N18.4 Radiculopathy affecting upper extremity (Chronic) M54.10 Iron deficiency anemia (Chronic) D50.9 Increased PTH level (Chronic) E34.9 secondary to CRF stage4 Metabolic acidosis (Acute) E87.2 Low vitamin D level (Chronic) E55.9 Paroxysmal atrial fibrillation (Chronic) I48.0 Nocturnal hypoxia (Chronic) G47.34 Noncompliance with CPAP treatment (Chronic) Z91.14 LADARIUS (obstructive sleep apnea) (Chronic) G47.33 Gout (Chronic) M10.9 History of tobacco abuse (Chronic) Z87.891 quit in April 2017 Coronary artery disease (Chronic) I25.10 has had 3 stents.....the last stent he thinks in 2008 Hypertension (Chronic) I10 Diabetes mellitus type 2 in obese (Chronic) E11.69, E66.9 Colon cancer C18.9 Acute exacerbation of chronic obstructive pulmonary disease (COPD) (Resolved) J44.1 Acute respiratory failure with hypoxemia (Resolved) J96.01 Influenza B (Resolved) J10.1 Lower GI bleed (Resolved) K92.2 Severe sepsis (Resolved) A41.9, R65.20 Streptococcal pneumonia (Resolved) J15.4 Urinary retention due to benign prostatic hyperplasia (Resolved) N40.1, R33.8 NSAID long-term use (Inactive) Z79.1 Non-STEMI (non-ST elevated myocardial infarction) (Inactive) I21.4 Allergies No Known Allergies Allergy (Verified 08/01/18 09:50) Home Medications: Ambulatory Orders Medication Instructions Recorded Aspirin 81 mg PO DAILY 05/14/17 Nitroglycerin (INPATIENT USE) 0.4 mg SUBLINGUAL Q5M PRN 05/14/17 [Nitrostat] Oxycodone [Oxyir] 5 mg PO BID PRN PRN 05/14/17 Simvastatin 80 mg PO QHS 05/14/17 Oxygen, Home [Home Oxygen] 2 - 3 lpm NASAL UD #1 unit 05/18/17 Albuterol Aerosols [Ventolin 2.5 mg INHALATION Q4H PRN PRN 09/15/17 Aerosols] Allopurinol [Zyloprim] 300 mg PO DAILY 09/15/17 Cilostazol 50 mg PO BID 09/15/17 Colchicine 0.6 mg PO TID PRN 09/15/17 Ergocalciferol [Vitamin D] 50,000 unit PO Q7D 09/15/17 Finasteride [Proscar] 5 mg PO DAILY 09/15/17 Isosorbide Mononitrate [Imdur] 30 mg PO DAILY 09/15/17 Metoprolol(XL)Succ [Toprol Xl 50 mg PO DAILY 09/15/17 (Beta Vanesa)] Nebulizer [Aeroneb Go Nebulizer] 1 ea MC 4X/DAY 09/15/17 Pantoprazole Sodium [Protonix] 40 mg PO DAILY 09/15/17 Tamsulosin HCl [Flomax] 0.4 mg PO DAILY@1730 09/15/17 hydrALAZINE [Apresoline] 25 mg PO TID 09/15/17 umeclidinium 62.5 mcg/actuation 1 inh INHALATION QDAY #30 ea 04/22/18 blister powder for inhalation Albuterol Inhaler [Ventolin Hfa] 1 - 2 puff INHALATION Q4H PRN PRN 05/12/18 Diazepam [Valium] 5 mg PO DAILY PRN 05/12/18 Insulin Aspart [Novolog Flexpen] 5 units SC TIDCM #0 05/16/18 Insulin Degludec [Tresiba 20 unit SC QHS #0 03/02/19 Flextouch U-100] Sodium Bicarbonate 650 mg PO TID #90 tablet 06/03/18 Vancomcyin 125mg/5mL PO Liquid 125 mg PO Q6 #28 po.syringe 06/03/18 Surgical History: Surgical History (Last Reviewed 08/01/18 @ 13:11 by Jose J Tucker DO) Hx of CABG (Chronic) Z95.1 x3 2003 H/O colectomy Z90.49 3/4 of colon, 12/2017, Dr. Alvarado with [facility] S/P removal of lung Z90.2 3/4 of right lung was removed by Dr. Todd in [facility] 11/2009 Surgical History: angioplasty - stent x2 2003, - - rt lung thoracotomy, lobectomy 2009 for benign tumor Lives: Spouse/ Significant Other Smoking Status: Current some day smoker Alcohol: None Drugs: None - *Family History Maternal Family History: Family History (Last Reviewed 08/01/18 @ 13:11 by Jose J Tucker DO) Father Leukemia Mother COPD (chronic obstructive pulmonary disease) History Items: COPD Paternal Family History: Family History (Last Reviewed 08/01/18 @ 13:11 by Jose J Tucker DO) Father Leukemia Mother COPD (chronic obstructive pulmonary disease) History Items: Cancer - leukemia, Hypertension Review of Systems Comment: Unable to obtain as the patient is intubated and sedated. VTE Information - Inpt Only VTE Present on Admission: No VTE Pharm Prophylaxis ordered?: Yes Patient Problems: Active and Suspected Problems (Last Reviewed 04/21/18 @ 09:45 by Yaquelin Simpson) Hypotension, unspecified (Acute) Severe sepsis (Acute) Pseudomembranous enterocolitis (Acute) Hyperkalemia, diminished renal excretion (Acute) Cholelithiasis (Acute) Infectious encephalopathy (Acute) Uremia of renal origin (Acute) Hyperglycemia due to type 2 diabetes mellitus (Acute) Septic shock (Acute) NICK (acute kidney injury) (Acute) C. difficile colitis (Acute) Hyperkalemia (Acute) Metabolic acidosis (Acute) Hyponatremia (Acute) - Physical Exam General: - - Intubated and sedated. HEENT: Atraumatic, Normocephalic, - - No icterus. Oral: Moist Mucosa, No Gingival or Mucosal Lesions/ Ulcerations, - - Endotracheal tube and orogastric tube in place Neck: No Nodes, Thyroid Normal Size and Texture Lungs: Diminished, - - Coarse breath sounds Cardiovascular: No murmurs, No Gallop, Tachycardic Abdomen: Soft, Non Tender, Non-Distended, Hypoactive Bowel Sounds Extremities: No edema, No Calf Tenderness, Peripheral Pulses Normal Skin: No rashes, No breakdown Musculoskeletal: No Tenderness to Palpation of Joints or Extremities, No Muscle Wasting Neurological: - - No clonus. Vital Signs Temp Pulse Resp BP Pulse Ox 36.6 C 126 H 14 87/60 L 100 08/01/18 09:50 08/01/18 11:30 08/01/18 11:30 08/01/18 11:24 08/01/18 11:30 Oxygen Flow Rate (L/min) 2 Oxygen Delivery Method Mechanical Ventilator Weight: 90.718 kg Body Mass Index (BMI) 27.1 Laboratory Tests Past 24 Hrs 08/01/18 08/01/18 08/01/18 10:13 10:13 10:13 WBC 20.2 H RBC 4.59 L Hgb 13.3 Hct 40.2 MCV 87.6 MCH 29.0 MCHC 33.1 RDW 15.4 H RDW Differential 49.1 H Plt Count 242 MPV 13.6 H Immature Gran % (Auto) 0.700 Neut % (Auto) 63.9 Lymph % (Auto) 15.3 L Mower % (Auto) 7.8 Eos % (Auto) 12.3 H Baso % (Auto) 0.0 Absolute Neuts (auto) 12.9 H Absolute Lymphs (auto) 3.08 Total Counted Not Reportable Plt Morphology Comment LARGE Specimen Type Sample Site VBG pH VBG pO2 VBG O2 Sat (Calc) VBG O2 Content VBG Base Excess POC Mix VBG pCO2 Pt Tmp O2 Delivery Device Liter Flow Blood Gas Notified Whom Blood Gas Notified Time Sodium 129 L Potassium 6.2 H* Chloride 102 Carbon Dioxide 12.0 L Anion Gap 15 BUN 104 H* Creatinine 11.70 H* Estim Creat Clear Calc 7.09 Est GFR (MDRD) Af Amer 6 L Est GFR (MDRD) Non-Af 5 L BUN/Creatinine Ratio 8.9 L Glucose 276 H Lactic Acid 2.2 H Calcium 9.1 Total Bilirubin 0.30 AST 12 L ALT 20 Alkaline Phosphatase 191 H Troponin I < 0.015 Total Protein 8.5 H Albumin 3.5 Globulin 5.0 H Albumin/Globulin Ratio 0.7 L Urine Color Urine Clarity Urine pH Ur Specific [place] Urine Protein Urine Glucose (UA) Urine Ketones Urine Occult Blood Urine Nitrite Urine Bilirubin Urine Urobilinogen Ur Leukocyte Esterase Urine RBC Urine WBC Ur Squamous Epith Cells Urine Bacteria Urine Mucus 08/01/18 08/01/18 08/01/18 11:04 11:50 12:30 WBC RBC Hgb Hct MCV MCH MCHC RDW RDW Differential Plt Count MPV Immature Gran % (Auto) Neut % (Auto) Lymph % (Auto) Mower % (Auto) Eos % (Auto) Baso % (Auto) Absolute Neuts (auto) Absolute Lymphs (auto) Total Counted Plt Morphology Comment Specimen Type SHERI Sample Site OTHER VBG pH 7.07 L* VBG pO2 37 VBG O2 Sat (Calc) 49 L VBG O2 Content 11 L VBG Base Excess -20 L POC Mix VBG pCO2 Pt Tmp 35.8 L O2 Delivery Device Nasal Can Liter Flow 2.0 Blood Gas Notified Whom ED Blood Gas Notified Time 1102 Sodium Potassium 6.6 H* Chloride Carbon Dioxide Anion Gap BUN Creatinine Estim Creat Clear Calc Est GFR (MDRD) Af Amer Est GFR (MDRD) Non-Af BUN/Creatinine Ratio Glucose Lactic Acid Calcium Total Bilirubin AST ALT Alkaline Phosphatase Troponin I Total Protein Albumin Globulin Albumin/Globulin Ratio Urine Color Yellow Urine Clarity Cloudy Urine pH 5.0 Ur Specific [place] 1.020 Urine Protein 100 H Urine Glucose (UA) 100 H Urine Ketones Negative Urine Occult Blood 25 H Urine Nitrite Negative Urine Bilirubin Negative Urine Urobilinogen Normal Ur Leukocyte Esterase 500 H Urine RBC 0 SEEN Urine WBC >100 SEEN Ur Squamous Epith Cells 0 SEEN Urine Bacteria 0 SEEN Urine Mucus 0 SEEN Clinical Impression(s) from Imaging Studies Chest X-Ray 08/01/18 10:02 IMPRESSION: 1. Right subclavian central venous catheter extends into the right jugular vein/neck. Repositioning recommended. 2. Satisfactory position of endotracheal tube. 3. Bullous and fibrotic changes of the right upper lung field, similar. 4. No airspace consolidation or pneumothorax. Electronically Signed: Yves Lamb MD at 11:45 EDT , Service support , Abdomen Ultrasound 08/01/18 10:31 IMPRESSION: 1. Solitary gallstone without sonographic evidence of acute cholecystitis. 2. Mild hepatomegaly. Electronically Signed: Yves Lamb MD at 12:15 EDT , Service support , Assessment/Plan All Active Problems (Last Reviewed 04/21/18 @ 09:45 by Yaquelin Simpson) Hypotension, unspecified (Acute) Severe sepsis (Acute) Pseudomembranous enterocolitis (Acute) Hyperkalemia, diminished renal excretion (Acute) Cholelithiasis (Acute) Infectious encephalopathy (Acute) Uremia of renal origin (Acute) Hyperglycemia due to type 2 diabetes mellitus (Acute) Septic shock (Acute) NICK (acute kidney injury) (Acute) C. difficile colitis (Acute) Hyperkalemia (Acute) Metabolic acidosis (Acute) Hyponatremia (Acute) Clostridium difficile colitis (Acute) Gastroenteritis (Acute) NICK (acute kidney injury) (Acute) Hyperkalemia (Acute) Acute renal failure superimposed on stage 4 chronic kidney disease (Acute) Metabolic acidosis (Acute) Acute exacerbation of chronic obstructive pulmonary disease (COPD) (Resolved) Acute respiratory failure with hypoxemia (Resolved) Benign neoplasm of right lung (Resolved) Influenza B (Resolved) Lower GI bleed (Resolved) Severe sepsis (Resolved) Streptococcal pneumonia (Resolved) Urinary retention due to benign prostatic hyperplasia (Resolved) 1. Severe Sepsis * Present on admission * Blood pressure has improved with IV fluids * secondary to C. difficile colitis * Supportive management * Abdominal ultrasound performed and was unremarkable. Chest x-ray shows no infiltrate. Urinalysis is negative. Blood cultures drawn and pending at the time of this dictation. * Given that the patient has been recently treated for C. difficile and does have a history of C. difficile, will hold off any additional antibiotics as he can only complicate his treatment for C. difficile. * The patient does require vasopressors the patient has become hypotensive and has persistent lactic acidosis and patient will meet criteria for septic shock. 2. C. difficile colitis * Patient be on oral vancomycin 500 mg every 6 hours, as noted previously or he received 25 in the emergency room. * Initially the vancomycin can be weaned down to the 125mg 4 times daily * Also, patient will be on metronidazole. * Check stool studies 3. Somnolence * Patient was not intubated but I can see no demented hypoxia though his venous blood gas oxygen was low at 49. * On the vent and vent management but will be per critical care medicine. * Patient will be sedated per protocol to maintain the patient can remain on the vent until he can have spontaneous breathing trial in which he is able to declare himself safe enough to take off the ventilator. 4. Metabolic acidosis * Likely due to the renal failure and other less light derangements * Patient has received bicarbonate * We will follow-up another BMP * Check an ABG as well 5. Acute kidney injury * Likely prerenal in etiology * IV fluids * Nephrology has been contacted by the ER * Baseline creatinine is around 2.1, patient was 3.02 on the 6. Hyperkalemia * likely secondary to metabolic acidosis * Patient did receive bicarbonate as well as insulin * Will recheck BMP to see the patient may need Kayexalate 7. Hyponatremia * Suspect due to volume depletion * IV fluids * Reevaluate 8. Malpositioned central catheter * As previous dimension, stated by the emergency room physician that would not have any adjustments to the subclavian triple lumen catheter and running into the right ipsilateral internal jugular vein. Patient is currently on no pressors but given the poor positioning and the requirement for additional IV fluids, antibiotics and other sedating medications it is most appropriate that the patient have a central line that is in proper position. I have advised the emergency room staff to get a peripheral IV, they were not, so I instructed them to remove the subclavian triple lumen catheter. I will attempt to place a right internal jugular catheter under ultrasound guidance in the intensive care unit once patient arrives. 9.VTE prophylaxis: Subcu heparin. Code Visit Inpatient E&M: 51346 Init Hosp L3
[2018-08-01] MEDS: Albuterol 2.5 MG/3 ML VIAL.NEB. 10 MG INHALATION (13:30)
--- NOTE | 2018-08-01 13:57 | ED.RN ---
Central line was capped off and not in use due to being in incorrect position, dr. Tucker at bedside instructed to get a 2nd peripheral line, if unable to get access, ICU will place another line at the floor. Per Dr. Smith central line was not pulled in the ER. Report given to Kail[facility] ICU
[2018-08-01] MEDS: Midazolam 2 MG/2 ML Syringe IV (14:10)
--- NOTE | 2018-08-01 14:20 | RAD_ITS ---
STUDY: X-RAY - ABDOMEN/PELVIS REASON FOR EXAM: Male, 62 years old. NG tube placement TECHNIQUE: Single AP view of the abdomen / pelvis. COMPARISON: None. FINDINGS: Enteric tube extends to gastric fundus/left upper quadrant. Limited visualization of the abdomen. No dilated loops of bowel identified. Normal soft tissue structures. Normal visualized osseous structures. Base of the chest described on chest x-ray. RAD/Abdomen Single View (Portable) IMPRESSION: Enteric tube extends to the gastric fundus. Electronically Signed: Yves Lamb MD at 15:05 EDT , Service support ,
--- NOTE | 2018-08-01 14:28 | RAD_ITS ---
STUDY: X-RAY CHEST REASON FOR EXAM: Male, 62 years old. Line placement TECHNIQUE: AP COMPARISON: Earlier today FINDINGS: Endotracheal tube terminates 2.4 cm above the vangie. Right jugular dialysis catheter is present with the tip extending to the mid SVC. Right subclavian vein intravenous catheter has been redirected with the tip now at the cavoatrial junction. Postoperative and fibrotic changes of the right upper lung zone noted. No airspace consolidation or pneumothorax. There is pleural fibrotic scarring of the right costophrenic angle. Normal size heart. Normal mediastinum and elizabeth. Normal visualized pulmonary arteries. Normal visualized aortic arch and descending thoracic aorta. Normal visualized thoracic spine. There are old right rib fractures. There is no demonstrated abnormality of the visualized soft tissue structures of the upper abdomen. RAD/CXR for Line Placement IMPRESSION: Satisfactory position of right subclavian central venous catheter and jugular dialysis catheter Electronically Signed: Yves Lamb MD at 15:04 EDT , Service support ,
--- NOTE | 2018-08-01 14:30 | PCM.CONS.R ---
Consultation - Renal 08/01/18 PCP/ Referring MD: Requesting physician: [] Primary care physician: Caesar Chavez Reason for Consultation:: NICK, hyperkalemia - History of Present Illness History of Present Illness: The patient is a 62 year old M with CKD stage 3-4 due to diabetic nephropathy, hx acute kidney injury due to shock, dehydration back in May 2018 due to cdiff colitis presents to ER today with shortness of breath and acute renal failure with creatinine of 11.7 and hyperkalemia with potassium of 6.6 with arrhythmia and wide QRS complexes intermittently. He presented to the emergency room hypotensive with a systolic in the 60s. He was apparently mottled and had a venous blood gas with a pH of 7.07. Patient was emergently intubated. Patient blood pressure did improve with IV fluids. Consulted for NICK, hyperkalemia, need for urgent dialysis. Patient received sodium bicarb, insulin for the hyperkalemia, lorazepam. Patient seen and evaluated in ICU. Currently sedate, on vent, unable to provide history. He was treated for possible recurrent cdiff as an outpatient with oral vancomycin by his PCP. is not aware if stools were sent for culture. Creatinine was 3.0 on 07/29 from baseline 2.12 on 06/30/18. He was instructed to encourage fluids and stop Losartan on 07/29. He had loose stools with skin breakdown around his rectal area due to frequent, watery bowel movements according to the patient's . He did not have any urinary output since early this morning around midnight. He complained of increased back pain and called his friend to take him to the emergency room. - Allergies Allergies: Allergies No Known Allergies Allergy (Verified 08/01/18 09:50) - Current Medications Current Medications: Current Medications Aspirin (Aspirin, Baby) 81 mg NG DAILY [facility]ACH Chlorhexidine Gluconate () 15 ml PO BID [facility]ACH Famotidine (Pepcid) 20 mg GT DAILY [facility]ACH Glucagon () 1 mg IM .X1 PRN PRN Reason: Hypoglycemia Heparin Sodium (Porcine) (Heparin Na) 5,000 unit SC Q12 [facility] Sodium Chloride () 1,000 mls @ 200 mls/hr IV .Q5H [facility] Stop: 08/02/18 00:19 Metronidazole (Flagyl) 500 mg in 100 mls @ 100 mls/hr IV Q8 [facility] Propofol (Diprivan) 1,000 mg in 100 mls @ 5.443 mls/hr CONT INF .Q12H [facility] Insulin Human Lispro (Humalog Kwikpen (Bkc)) 0 unit SQ Q6 ZACH; Protocol Non-Formulary Medication (Cilostazol [Cilostazol]) 50 mg NG BID [facility]ACH Non-Formulary Medication (Insulin Degludec) 10 unit SC QHS [facility] Non-Formulary Medication (Metoprolol(Xl)Succ [Toprol Xl (Beta Vanesa)]) 50 mg PO DAILY [facility] Ondansetron HCl (Zofran) 4 mg IV Q8H PRN PRN PRN Reason: NAUSEA/VOMITING Prochlorperazine Edisylate (Compazine Iv) 5 mg IV Q4H PRN PRN PRN Reason: Breakthrough Nausea/Vomiting Sodium Chloride () 5 - 15 ml IV UD PRN PRN Reason: SALINE FLUSH Vancomycin HCl () 500 mg NG Q6 [facility] - Past Medical History Past Medical History (Chronic Problems): Chronic Problems (Last Reviewed 08/01/18 @ 13:11 by Jose J Tucker DO) Acute renal failure superimposed on stage 3 chronic kidney disease (Chronic) S/P PTCA (percutaneous transluminal coronary angioplasty) (Chronic) HLD (hyperlipidemia) (Chronic) Clostridium difficile colitis (Chronic) Chronic hypoxemic respiratory failure (Chronic) 2-3 LPM chronically Colon cancer (Chronic) had surgery with no chemo or radiation at [facility] fall Status post colon resection (Chronic) subtotal for colon CA in the fall at [facility] Hemorrhoids (Chronic) CKD (chronic kidney disease) stage 4, GFR 15-29 ml/min (Chronic) Nicotine dependence, cigarettes, in remission (Chronic) Stage 3 severe COPD by GOLD classification (Chronic) FEV1 37% predicted Heme + stool (Chronic) Anemia of chronic renal failure (Chronic) H/O pneumonectomy (Chronic) Right LL lobectomy due to benign tumor Peripheral vascular disease (Chronic) Radiculopathy affecting upper extremity (Chronic) Iron deficiency anemia (Chronic) Increased PTH level (Chronic) secondary to CRF stage4 Low vitamin D level (Chronic) Paroxysmal atrial fibrillation (Chronic) Nocturnal hypoxia (Chronic) Noncompliance with CPAP treatment (Chronic) LADARIUS (obstructive sleep apnea) (Chronic) Gout (Chronic) History of tobacco abuse (Chronic) quit in April 2017 Hx of CABG (Chronic) x3 2004 Coronary artery disease (Chronic) has had 3 stents.....the last stent he thinks in 2008 Hypertension (Chronic) Diabetes mellitus type 2 in obese (Chronic) - Past Surgical History Surgical History: angioplasty - stent x2 2003, - - rt lung thoracotomy, lobectomy 2009 for benign tumor - Social History Smoking Status: Current some day smoker Alcohol: None Drugs: None - Family History Maternal Family History: Family History (Last Reviewed 08/01/18 @ 13:11 by Jose J Tucker DO) Father Leukemia Mother COPD (chronic obstructive pulmonary disease) History Items: COPD Paternal Family History: Family History (Last Reviewed 08/01/18 @ 13:11 by Jose J Tucker DO) Father Leukemia Mother COPD (chronic obstructive pulmonary disease) History Items: Cancer - leukemia, Hypertension Review of Systems Constitutional: Reports: Weakness, Fatigue Respiratory: Reports: Shortness of Breath, - - Returned his home oxygen according to the patient's Gastrointestinal: Reports: Abdominal Pain - Back pain, Diarrhea, - - Anorexia. Denies: Nausea, Vomiting Genitourinary: Reports: - - No urine output since midnight. Denies: Dysuria Musculoskeletal: Reports: Back Pain Skin: Denies: Rash Neurological: Reports: - - Generalized weakness Hematologic/ Lymphatic: Reports: Anemia Patient Problems: Active and Suspected Problems (Last Reviewed 08/01/18 @ 13:11 by Jose J Tucker DO) Hypotension, unspecified (Acute) Severe sepsis (Acute) Pseudomembranous enterocolitis (Acute) Hyperkalemia, diminished renal excretion (Acute) Cholelithiasis (Acute) Infectious encephalopathy (Acute) Uremia of renal origin (Acute) Hyperglycemia due to type 2 diabetes mellitus (Acute) Septic shock (Acute) NICK (acute kidney injury) (Acute) C. difficile colitis (Acute) Hyperkalemia (Acute) Metabolic acidosis (Acute) Hyponatremia (Acute) NSTEMI (non-ST elevated myocardial infarction) (Acute) - Physical Exam General: - - Unresponsive, sedated on ventilator. Restless. HEENT: PERRLA, EOMI Oral: Dry Mucosa Neck: Supple Lungs: Rhonchi Cardiovascular: Tachycardic Abdomen: Non Tender, Non-Distended, Hypoactive Bowel Sounds Extremities: No edema, Diminished Peripheral Pulses, - - Cool extremities Skin: No rashes Musculoskeletal: No Muscle Wasting Neurological: - - On vent unable to evaluate Psych/Mental Status: - - On ventilator Vital Signs Temp Pulse Resp BP Pulse Ox 97.8 F 116 H 14 105/62 100 08/01/18 09:50 08/01/18 13:08 08/01/18 13:08 08/01/18 13:08 08/01/18 13:08 Oxygen Flow Rate (L/min) 2 Oxygen Delivery Method Mechanical Ventilator Weight: 90.718 kg Body Mass Index (BMI) 27.1 Laboratory Tests Past 24 Hrs 08/01/18 08/01/18 08/01/18 10:13 10:13 10:13 WBC 20.2 H RBC 4.59 L Hgb 13.3 Hct 40.2 MCV 87.6 MCH 29.0 MCHC 33.1 RDW 15.4 H RDW Differential 49.1 H Plt Count 242 MPV 13.6 H Immature Gran % (Auto) 0.700 Neut % (Auto) 63.9 Lymph % (Auto) 15.3 L [place] % (Auto) 7.8 Eos % (Auto) 12.3 H Baso % (Auto) 0.0 Absolute Neuts (auto) 12.9 H Absolute Lymphs (auto) 3.08 Total Counted Not Reportable Plt Morphology Comment LARGE Specimen Type Sample Site VBG pH VBG pO2 VBG O2 Sat (Calc) VBG O2 Content VBG Base Excess POC Mix VBG pCO2 Pt Tmp O2 Delivery Device Liter Flow Blood Gas Notified Whom Blood Gas Notified Time Sodium 129 L Potassium 6.2 H* Chloride 102 Carbon Dioxide 12.0 L Anion Gap 15 BUN 104 H* Creatinine 11.70 H* Estim Creat Clear Calc 7.09 Est GFR (MDRD) Af Amer 6 L Est GFR (MDRD) Non-Af 5 L BUN/Creatinine Ratio 8.9 L Glucose 276 H Lactic Acid 2.2 H Calcium 9.1 Total Bilirubin 0.30 AST 12 L ALT 20 Alkaline Phosphatase 191 H Troponin I < 0.015 Total Protein 8.5 H Albumin 3.5 Globulin 5.0 H Albumin/Globulin Ratio 0.7 L Urine Color Urine Clarity Urine pH Ur Specific [place] Urine Protein Urine Glucose (UA) Urine Ketones Urine Occult Blood Urine Nitrite Urine Bilirubin Urine Urobilinogen Ur Leukocyte Esterase Urine RBC Urine WBC Ur Squamous Epith Cells Urine Bacteria Urine Mucus 08/01/18 08/01/18 08/01/18 11:04 11:50 12:30 WBC RBC Hgb Hct MCV MCH MCHC RDW RDW Differential Plt Count MPV Immature Gran % (Auto) Neut % (Auto) Lymph % (Auto) [place] % (Auto) Eos % (Auto) Baso % (Auto) Absolute Neuts (auto) Absolute Lymphs (auto) Total Counted Plt Morphology Comment Specimen Type SHERI Sample Site OTHER VBG pH 7.07 L* VBG pO2 37 VBG O2 Sat (Calc) 49 L VBG O2 Content 11 L VBG Base Excess -20 L POC Mix VBG pCO2 Pt Tmp 35.8 L O2 Delivery Device Nasal Can Liter Flow 2.0 Blood Gas Notified Whom ED Blood Gas Notified Time 1102 Sodium Potassium 6.6 H* Chloride Carbon Dioxide Anion Gap BUN Creatinine Estim Creat Clear Calc Est GFR (MDRD) Af Amer Est GFR (MDRD) Non-Af BUN/Creatinine Ratio Glucose Lactic Acid Calcium Total Bilirubin AST ALT Alkaline Phosphatase Troponin I Total Protein Albumin Globulin Albumin/Globulin Ratio Urine Color Yellow Urine Clarity Cloudy Urine pH 5.0 Ur Specific [place] 1.020 Urine Protein 100 H Urine Glucose (UA) 100 H Urine Ketones Negative Urine Occult Blood 25 H Urine Nitrite Negative Urine Bilirubin Negative Urine Urobilinogen Normal Ur Leukocyte Esterase 500 H Urine RBC 0 SEEN Urine WBC >100 SEEN Ur Squamous Epith Cells 0 SEEN Urine Bacteria 0 SEEN Urine Mucus 0 SEEN Clinical Impression(s) from Imaging Studies Chest X-Ray 08/01/18 10:02 IMPRESSION: 1. Right subclavian central venous catheter extends into the right jugular vein/neck. Repositioning recommended. 2. Satisfactory position of endotracheal tube. 3. Bullous and fibrotic changes of the right upper lung field, similar. 4. No airspace consolidation or pneumothorax. Electronically Signed: Yves Lamb MD at 11:45 EDT , Service support , Abdomen Ultrasound 08/01/18 10:31 IMPRESSION: 1. Solitary gallstone without sonographic evidence of acute cholecystitis. 2. Mild hepatomegaly. Electronically Signed: Yves Lamb MD at 12:15 EDT , Service support , Chest X-Ray 08/01/18 14:28 IMPRESSION: Satisfactory position of right subclavian central venous catheter and jugular dialysis catheter Electronically Signed: Yves Lamb MD at 15:04 EDT , Service support , Assessment/Plan All Active Problems (Last Reviewed 08/01/18 @ 13:11 by Jose J Tucker DO) Hypotension, unspecified (Acute) Severe sepsis (Acute) Pseudomembranous enterocolitis (Acute) Hyperkalemia, diminished renal excretion (Acute) Cholelithiasis (Acute) Infectious encephalopathy (Acute) Uremia of renal origin (Acute) Hyperglycemia due to type 2 diabetes mellitus (Acute) Septic shock (Acute) NICK (acute kidney injury) (Acute) C. difficile colitis (Acute) Hyperkalemia (Acute) Metabolic acidosis (Acute) Hyponatremia (Acute) NSTEMI (non-ST elevated myocardial infarction) (Acute) Gastroenteritis (Acute) NICK (acute kidney injury) (Acute) Hyperkalemia (Acute) Acute renal failure superimposed on stage 4 chronic kidney disease (Acute) Metabolic acidosis (Acute) Acute exacerbation of chronic obstructive pulmonary disease (COPD) (Resolved) Acute respiratory failure with hypoxemia (Resolved) Benign neoplasm of right lung (Resolved) Influenza B (Resolved) Lower GI bleed (Resolved) Severe sepsis (Resolved) Streptococcal pneumonia (Resolved) Urinary retention due to benign prostatic hyperplasia (Resolved) 1. Shock sepsis with blood pressure in the 60s systolic likely due to profound dehydration from watery stools. Aggressively hydrated. Pressor support as needed. Continue IV fluids at 150 cc an hour. Panculture. 2. Acute kidney injury likely due to shock sepsis, ATN. Aggressive hydration. BUN 104 with creatinine 11.7. Baseline creatinine 2-3. Creatinine was 3.0 on 07/29. Creatinine 2.12 in June 2018. Spoke with patient spouse at bedside regarding initiating hemodialysis and potential complications. Signed consent to proceed with treatment. Remains oligoanuric despite aggressive hydration 3. Acute hyperkalemia with cardiac arrhythmia. Urgent dialysis today. Seen on dialysis 4. History of C. difficile colitis continue to treat empirically for now. Leukocytosis without fever. 5. Metabolic acidosis with anion gap likely due to renal failure and GI loss. We will correct acidosis with hemodialysis today. 6. Acute respiratory failure with hypoxemia requiring intubation in ER. 7. Acute metabolic encephalopathy
--- NOTE | 2018-08-01 14:36 | CON.PCM_ITS ---
Consultation - Renal 08/01/18 PCP/ Referring MD: Requesting physician: [] Primary care physician: Caesar Chavez Reason for Consultation:: NICK, hyperkalemia - History of Present Illness History of Present Illness: The patient is a 62 year old M with CKD stage 3-4 due to diabetic nephropathy, hx acute kidney injury due to shock, dehydration back in May 2018 due to cdiff colitis presents to ER today with shortness of breath and acute renal failure with creatinine of 11.7 and hyperkalemia with potassium of 6.6 with arrhythmia and wide QRS complexes intermittently. He presented to the emergency room hypotensive with a systolic in the 60s. He was apparently mottled and had a venous blood gas with a pH of 7.07. Patient was emergently intubated. Patient blood pressure did improve with IV fluids. Consulted for NICK, hyperkalemia, need for urgent dialysis. Patient received sodium bicarb, insulin for the hyperkalemia, lorazepam. Patient seen and evaluated in ICU. Currently sedate, on vent, unable to provide history. He was treated for possible recurrent cdiff as an outpatient with oral vancomycin by his PCP. is not aware if stools were sent for culture. Creatinine was 3.0 on 07/29 from baseline 2.12 on 06/30/18. He was instructed to encourage fluids and stop Losartan on 07/29. He had loose stools with skin breakdown around his rectal area due to frequent, watery bowel movements according to the patient's . He did not have any urinary output since early this morning around midnight. He complained of increased back pain and called his friend to take him to the emergency room. - Allergies Allergies: Allergies No Known Allergies Allergy (Verified 08/01/18 09:50) - Current Medications Current Medications: Current Medications Aspirin (Aspirin, Baby) 81 mg NG DAILY ZACH Chlorhexidine Gluconate () 15 ml PO BID ZACH Famotidine (Pepcid) 20 mg GT DAILY ZACH Glucagon () 1 mg IM .X1 PRN PRN Reason: Hypoglycemia Heparin Sodium (Porcine) (Heparin Na) 5,000 unit SC Q12 [facility]ACH Sodium Chloride () 1,000 mls @ 200 mls/hr IV .Q5H [facility]ACH Stop: 08/02/18 00:19 Metronidazole (Flagyl) 500 mg in 100 mls @ 100 mls/hr IV Q8 [facility]ACH Propofol (Diprivan) 1,000 mg in 100 mls @ 5.443 mls/hr CONT INF .Q12H [facility] Insulin Human Lispro (Humalog Kwikpen (Bkc)) 0 unit SQ Q6 ZACH; Protocol Non-Formulary Medication (Cilostazol [Cilostazol]) 50 mg NG BID ZACH Non-Formulary Medication (Insulin Degludec) 10 unit SC QHS [facility] Non-Formulary Medication (Metoprolol(Xl)Succ [Toprol Xl (Beta Vanesa)]) 50 mg PO DAILY [facility] Ondansetron HCl (Zofran) 4 mg IV Q8H PRN PRN PRN Reason: NAUSEA/VOMITING Prochlorperazine Edisylate (Compazine Iv) 5 mg IV Q4H PRN PRN PRN Reason: Breakthrough Nausea/Vomiting Sodium Chloride () 5 - 15 ml IV UD PRN PRN Reason: SALINE FLUSH Vancomycin HCl () 500 mg NG Q6 [facility] - Past Medical History Past Medical History (Chronic Problems): Chronic Problems (Last Reviewed 08/01/18 @ 13:11 by Jose J Tucker DO) Acute renal failure superimposed on stage 3 chronic kidney disease (Chronic) S/P PTCA (percutaneous transluminal coronary angioplasty) (Chronic) HLD (hyperlipidemia) (Chronic) Clostridium difficile colitis (Chronic) Chronic hypoxemic respiratory failure (Chronic) 2-3 LPM chronically Colon cancer (Chronic) had surgery with no chemo or radiation at [facility] fall Status post colon resection (Chronic) subtotal for colon CA in the fall at [facility] Hemorrhoids (Chronic) CKD (chronic kidney disease) stage 4, GFR 15-29 ml/min (Chronic) Nicotine dependence, cigarettes, in remission (Chronic) Stage 3 severe COPD by GOLD classification (Chronic) FEV1 37% predicted Heme + stool (Chronic) Anemia of chronic renal failure (Chronic) H/O pneumonectomy (Chronic) Right LL lobectomy due to benign tumor Peripheral vascular disease (Chronic) Radiculopathy affecting upper extremity (Chronic) Iron deficiency anemia (Chronic) Increased PTH level (Chronic) secondary to CRF stage4 Low vitamin D level (Chronic) Paroxysmal atrial fibrillation (Chronic) Nocturnal hypoxia (Chronic) Noncompliance with CPAP treatment (Chronic) LADARIUS (obstructive sleep apnea) (Chronic) Gout (Chronic) History of tobacco abuse (Chronic) quit in April 2017 Hx of CABG (Chronic) x3 2004 Coronary artery disease (Chronic) has had 3 stents.....the last stent he thinks in 2008 Hypertension (Chronic) Diabetes mellitus type 2 in obese (Chronic) - Past Surgical History Surgical History: angioplasty - stent x2 2003, - - rt lung thoracotomy, lobectomy 2009 for benign tumor - Social History Smoking Status: Current some day smoker Alcohol: None Drugs: None - Family History Maternal Family History: Family History (Last Reviewed 08/01/18 @ 13:11 by Jose J Tucker DO) Father Leukemia Mother COPD (chronic obstructive pulmonary disease) History Items: COPD Paternal Family History: Family History (Last Reviewed 08/01/18 @ 13:11 by Jose J Tucker DO) Father Leukemia Mother COPD (chronic obstructive pulmonary disease) History Items: Cancer - leukemia, Hypertension Review of Systems Constitutional: Reports: Weakness, Fatigue Respiratory: Reports: Shortness of Breath, - - Returned his home oxygen according to the patient's Gastrointestinal: Reports: Abdominal Pain - Back pain, Diarrhea, - - Anorexia. Denies: Nausea, Vomiting Genitourinary: Reports: - - No urine output since midnight. Denies: Dysuria Musculoskeletal: Reports: Back Pain Skin: Denies: Rash Neurological: Reports: - - Generalized weakness Hematologic/ Lymphatic: Reports: Anemia Patient Problems: Active and Suspected Problems (Last Reviewed 08/01/18 @ 13:11 by Jose J Tucker DO) Hypotension, unspecified (Acute) Severe sepsis (Acute) Pseudomembranous enterocolitis (Acute) Hyperkalemia, diminished renal excretion (Acute) Cholelithiasis (Acute) Infectious encephalopathy (Acute) Uremia of renal origin (Acute) Hyperglycemia due to type 2 diabetes mellitus (Acute) Septic shock (Acute) NICK (acute kidney injury) (Acute) C. difficile colitis (Acute) Hyperkalemia (Acute) Metabolic acidosis (Acute) Hyponatremia (Acute) NSTEMI (non-ST elevated myocardial infarction) (Acute) - Physical Exam General: - - Unresponsive, sedated on ventilator. Restless. HEENT: PERRLA, EOMI Oral: Dry Mucosa Neck: Supple Lungs: Rhonchi Cardiovascular: Tachycardic Abdomen: Non Tender, Non-Distended, Hypoactive Bowel Sounds Extremities: No edema, Diminished Peripheral Pulses, - - Cool extremities Skin: No rashes Musculoskeletal: No Muscle Wasting Neurological: - - On vent unable to evaluate Psych/Mental Status: - - On ventilator Vital Signs Temp Pulse Resp BP Pulse Ox 97.8 F 116 H 14 105/62 100 08/01/18 09:50 08/01/18 13:08 08/01/18 13:08 08/01/18 13:08 08/01/18 13:08 Oxygen Flow Rate (L/min) 2 Oxygen Delivery Method Mechanical Ventilator Weight: 90.718 kg Body Mass Index (BMI) 27.1 Laboratory Tests Past 24 Hrs 08/01/18 08/01/18 08/01/18 10:13 10:13 10:13 WBC 20.2 H RBC 4.59 L Hgb 13.3 Hct 40.2 MCV 87.6 MCH 29.0 MCHC 33.1 RDW 15.4 H RDW Differential 49.1 H Plt Count 242 MPV 13.6 H Immature Gran % (Auto) 0.700 Neut % (Auto) 63.9 Lymph % (Auto) 15.3 L Evans % (Auto) 7.8 Eos % (Auto) 12.3 H Baso % (Auto) 0.0 Absolute Neuts (auto) 12.9 H Absolute Lymphs (auto) 3.08 Total Counted Not Reportable Plt Morphology Comment LARGE Specimen Type Sample Site VBG pH VBG pO2 VBG O2 Sat (Calc) VBG O2 Content VBG Base Excess POC Mix VBG pCO2 Pt Tmp O2 Delivery Device Liter Flow Blood Gas Notified Whom Blood Gas Notified Time Sodium 129 L Potassium 6.2 H* Chloride 102 Carbon Dioxide 12.0 L Anion Gap 15 BUN 104 H* Creatinine 11.70 H* Estim Creat Clear Calc 7.09 Est GFR (MDRD) Af Amer 6 L Est GFR (MDRD) Non-Af 5 L BUN/Creatinine Ratio 8.9 L Glucose 276 H Lactic Acid 2.2 H Calcium 9.1 Total Bilirubin 0.30 AST 12 L ALT 20 Alkaline Phosphatase 191 H Troponin I < 0.015 Total Protein 8.5 H Albumin 3.5 Globulin 5.0 H Albumin/Globulin Ratio 0.7 L Urine Color Urine Clarity Urine pH Ur Specific [place] Urine Protein Urine Glucose (UA) Urine Ketones Urine Occult Blood Urine Nitrite Urine Bilirubin Urine Urobilinogen Ur Leukocyte Esterase Urine RBC Urine WBC Ur Squamous Epith Cells Urine Bacteria Urine Mucus 08/01/18 08/01/18 08/01/18 11:04 11:50 12:30 WBC RBC Hgb Hct MCV MCH MCHC RDW RDW Differential Plt Count MPV Immature Gran % (Auto) Neut % (Auto) Lymph % (Auto) Evans % (Auto) Eos % (Auto) Baso % (Auto) Absolute Neuts (auto) Absolute Lymphs (auto) Total Counted Plt Morphology Comment Specimen Type SHERI Sample Site OTHER VBG pH 7.07 L* VBG pO2 37 VBG O2 Sat (Calc) 49 L VBG O2 Content 11 L VBG Base Excess -20 L POC Mix VBG pCO2 Pt Tmp 35.8 L O2 Delivery Device Nasal Can Liter Flow 2.0 Blood Gas Notified Whom ED Blood Gas Notified Time 1102 Sodium Potassium 6.6 H* Chloride Carbon Dioxide Anion Gap BUN Creatinine Estim Creat Clear Calc Est GFR (MDRD) Af Amer Est GFR (MDRD) Non-Af BUN/Creatinine Ratio Glucose Lactic Acid Calcium Total Bilirubin AST ALT Alkaline Phosphatase Troponin I Total Protein Albumin Globulin Albumin/Globulin Ratio Urine Color Yellow Urine Clarity Cloudy Urine pH 5.0 Ur Specific [place] 1.020 Urine Protein 100 H Urine Glucose (UA) 100 H Urine Ketones Negative Urine Occult Blood 25 H Urine Nitrite Negative Urine Bilirubin Negative Urine Urobilinogen Normal Ur Leukocyte Esterase 500 H Urine RBC 0 SEEN Urine WBC >100 SEEN Ur Squamous Epith Cells 0 SEEN Urine Bacteria 0 SEEN Urine Mucus 0 SEEN Clinical Impression(s) from Imaging Studies Chest X-Ray 08/01/18 10:02 IMPRESSION: 1. Right subclavian central venous catheter extends into the right jugular vein/neck. Repositioning recommended. 2. Satisfactory position of endotracheal tube. 3. Bullous and fibrotic changes of the right upper lung field, similar. 4. No airspace consolidation or pneumothorax. Electronically Signed: Yves Lamb MD at 11:45 EDT , Service support , Abdomen Ultrasound 08/01/18 10:31 IMPRESSION: 1. Solitary gallstone without sonographic evidence of acute cholecystitis. 2. Mild hepatomegaly. Electronically Signed: Yves Lamb MD at 12:15 EDT , Service support , Chest X-Ray 08/01/18 14:28 IMPRESSION: Satisfactory position of right subclavian central venous catheter and jugular dialysis catheter Electronically Signed: Yves Lamb MD at 15:04 EDT , Service support , Assessment/Plan All Active Problems (Last Reviewed 08/01/18 @ 13:11 by Jose J Tucker DO) Hypotension, unspecified (Acute) Severe sepsis (Acute) Pseudomembranous enterocolitis (Acute) Hyperkalemia, diminished renal excretion (Acute) Cholelithiasis (Acute) Infectious encephalopathy (Acute) Uremia of renal origin (Acute) Hyperglycemia due to type 2 diabetes mellitus (Acute) Septic shock (Acute) NICK (acute kidney injury) (Acute) C. difficile colitis (Acute) Hyperkalemia (Acute) Metabolic acidosis (Acute) Hyponatremia (Acute) NSTEMI (non-ST elevated myocardial infarction) (Acute) Gastroenteritis (Acute) NICK (acute kidney injury) (Acute) Hyperkalemia (Acute) Acute renal failure superimposed on stage 4 chronic kidney disease (Acute) Metabolic acidosis (Acute) Acute exacerbation of chronic obstructive pulmonary disease (COPD) (Resolved) Acute respiratory failure with hypoxemia (Resolved) Benign neoplasm of right lung (Resolved) Influenza B (Resolved) Lower GI bleed (Resolved) Severe sepsis (Resolved) Streptococcal pneumonia (Resolved) Urinary retention due to benign prostatic hyperplasia (Resolved) 1. Shock sepsis with blood pressure in the 60s systolic likely due to profound dehydration from watery stools. Aggressively hydrated. Pressor support as needed. Continue IV fluids at 150 cc an hour. Panculture. 2. Acute kidney injury likely due to shock sepsis, ATN. Aggressive hydration. BUN 104 with creatinine 11.7. Baseline creatinine 2-3. Creatinine was 3.0 on 07/29. Creatinine 2.12 in June 2018. Spoke with patient spouse at bedside regarding initiating hemodialysis and potential complications. Signed consent to proceed with treatment. Remains oligoanuric despite aggressive hydration 3. Acute hyperkalemia with cardiac arrhythmia. Urgent dialysis today. Seen on dialysis 4. History of C. difficile colitis continue to treat empirically for now. Leukocytosis without fever. 5. Metabolic acidosis with anion gap likely due to renal failure and GI loss. We will correct acidosis with hemodialysis today. 6. Acute respiratory failure with hypoxemia requiring intubation in ER. 7. Acute metabolic encephalopathy
[2018-08-01] MEDS: 0.9% Normal Saline 1,000 ML 150 ML IV ×2 (14:45→20:49)
--- NOTE | 2018-08-01 15:15 | PCM.OPRPT ---
Report of Operation Date of Procedure: 08/01/18 Pre-Operative Diagnosis: septic shock, hyperkalemia, arrhythmias, fluid overload, needing emergency dialysis and emergency access Post-Operative Diagnosis: septic shock, hyperkalemia, arrhythmias, fluid overload, needing emergency dialysis and emergency access - successful right internal jugular dialysis catheter placement and right subclavian triple-lumen placement Surgery/Procedure Performed:: right internal jugular dialysis catheter placement with ultrasound guidanceand right subclavian triple-lumen placement waste specialist: None Type of Anesthesia:: IV Sedation Estimated Blood Loss (mL): <20 Description of Procedure: The patient was maintained in the intensive care unit on full monitoring devices. The patient was intubated. Consent was obtained by the family who understood the emergent nature of the procedures. Timeout was performed verifying patient, site, position. For IV sedation, the patient was given 2 mg of Versed. The previous triple-lumen catheter in the subclavian which was tracking up the internal jugular was removed and pressure was held at the site. Right internal jugular dialysis catheter placement The right neck and chest were prepped and draped in the usual fashion. Local anesthetic was injected and ultrasound was used to identify the jugular vein. A remotely piloted vehicle controller needle was inserted to the jugular vein under ultrasound guidance with return of venous blood. Next, under ultrasound guidance, a Seldinger needle was used to access the right internal jugular vein without difficulty. A guidewire was inserted and advanced the SVC/ RA region. Dilators were inserted over the wire. The dialysis catheter was lastly inserted over the wire and advanced. It was secured with 3-0 nylon suture. There was good return of venous blood with almost instantaneous filling of a 5 cc syringe and easy inflow of saline through the system. The catheter were flushed with saline, caps placed and a dressing applied. Right subclavian triple-lumen catheter placement The right chest had already been prepped and draped in the usual fashion. Local anesthetic was injected and ultrasound was used to identify the jugular vein. Seldinger needle was used to access the right subclavian vein without difficulty. A guidewire was inserted and advanced the SVC/ RA region. Dilators were inserted over the wire. The triple-lumen catheter was lastly inserted over the wire and advanced. It was secured with 3-0 nylon suture. There was good return of venous blood through all 3 ports and easy inflow of saline through the system. The 3 lumen were flushed with saline, caps placed and a dressing applied. Postprocedure chest x-ray was obtained which demonstrated good position of the catheter tips and no pneumothoraces.
--- NOTE | 2018-08-01 15:18 | NURSING ---
CORE TEMP 95.4, WARM BLANKETS APPLIED.
[2018-08-01] MEDS: fentaNYL drip 100 ML 2.5 MCG CONT INF (15:20)
--- NOTE | 2018-08-01 15:23 | OP.PCM_ITS ---
Report of Operation Date of Procedure: 08/01/18 Pre-Operative Diagnosis: septic shock, hyperkalemia, arrhythmias, fluid ov erload, needing emergency dialysis and emergency access Post-Operative Diagnosis: septic shock, hyperkalemia, arrhythmias, fluid overload, needing emergency dialysis and emergency access - successful right internal jugular dialysis catheter placement and right subclavian triple-lumen placement Surgery/Procedure Performed:: right internal jugular dialysis catheter placement with ultrasound guidanceand right subclavian triple-lumen placement senior ssis developer: None Type of Anesthesia:: IV Sedation Estimated Blood Loss (mL): <20 Description of Procedure: The patient was maintained in the intensive care unit on full monitoring devices. The patient was intubated. Consent was obtained by the family who understood the emergent nature of the procedures. Timeout was performed verifying patient, site, position. For IV sedation, the patient was given 2 mg of Versed. The previous triple- lumen catheter in the subclavian which was tracking up the internal jugular was removed and pressure was held at the site. Right internal jugular dialysis catheter placement The right neck and chest were prepped and draped in the usual fashion. Local anesthetic was injected and ultrasound was used to identify the jugular vein. A fighter pilot needle was inserted to the jugular vein under ultrasound guidance with return of venous blood. Next, under ultrasound guidance, a Seldinger needle was used to access the right internal jugular vein without difficulty. A guidewire was inserted and advanced the SVC/ RA region. Dilators were inserted over the wire. The dialysis catheter was lastly inserted over the wire and advanced. It was secured with 3-0 nylon suture. There was good return of venous blood with almost instantaneous filling of a 5 cc syringe and easy inflow of saline through the system. The catheter were flushed with saline, caps placed and a dressing applied. Right subclavian triple-lumen catheter placement The right chest had already been prepped and draped in the usual fashion. Local anesthetic was injected and ultrasound was used to identify the jugular vein. Seldinger needle was used to access the right subclavian vein without difficulty. A guidewire was inserted and advanced the SVC/ RA region. Dilators were inserted over the wire. The triple-lumen catheter was lastly inserted over the wire and advanced. It was secured with 3-0 nylon suture. There was good return of venous blood through all 3 ports and easy inflow of saline through the system. The 3 lumen were flushed with saline, caps placed and a dressing applied. Postprocedure chest x-ray was obtained which demonstrated good position of the catheter tips and no pneumothoraces.
--- NOTE | 2018-08-01 15:24 | PCM.CONS.GEN ---
Reason for Consult Date of Consultation: 08/01/18 Reason for Consultation: presumed septic shock, hypertension, arrhythmias, hyperkalemia, need for emergency dialysis access and vascular access History of Present Illness: The patient is a 62 year old M who presented emerged from it this morning with complaints of feeling weak and lightheaded increasing shortness of breath and back pain. the patient was felt to be confused and not able to appropriately relate his past medical information. the patient was found to have a WBC count of 20,000,was found to be hyponatremic, hypokalemic with potassium of 6.2, his BUN was 104 his creatinine was 11. His lactic acid is 2.2. venous blood gas returned as a pH of 7.07 with a base excess of -20. The patient was found to have runs of ventricular tachycardia. Clinically was felt to be in septic shock and acute on chronic renal failure. He was intubated. Attempts to place a subclavian line due to challenging vascular access resulted in a right subclavian triple-lumen catheter tracking up his right internal jugular. It was felt that the patient needed emergency dialysis and emergency access. The patient was being transferred to the intensive care unit and I was contacted by Dr. Martell Smith emergency physician for placement of these lines. The patient actually is known to me somewhat. I evaluated him last year when he had rectal bleeding. He was found to have multiple colon cancers. He was referred to [facility] where he underwent a subtotal colectomy with ileorectal anastomosis. the patient has multiple additional medical communities including obesity hyperlipidemia reflux and benign prostatic hypertrophy and worsening renal failure. he apparently has been evaluated in the past by nephrology service who recommended vascular dialysis access be placed prior to needing emergent dialysis but the patient was apparently reluctant. The patient's and family are present now. The patient is intubated and sedated in the ICU. The patient's family has made the decision that they wish for him to get dialysis emergently. The family consents to the above emergency procedures Past Medical History Past Medical History (Chronic Problems): Chronic Problems (Last Reviewed 08/01/18 @ 13:11 by Jose J Tucker DO) Acute renal failure superimposed on stage 3 chronic kidney disease (Chronic) Chronic hypoxemic respiratory failure (Chronic) 2-3 LPM chronically Colon cancer (Chronic) had surgery with no chemo or radiation at [facility] fall Status post colon resection (Chronic) subtotal for colon CA in the fall 2017 at [facility] Hemorrhoids (Chronic) CKD (chronic kidney disease) stage 4, GFR 15-29 ml/min (Chronic) Nicotine dependence, cigarettes, in remission (Chronic) Stage 3 severe COPD by GOLD classification (Chronic) FEV1 37% predicted Heme + stool (Chronic) Anemia of chronic renal failure (Chronic) H/O pneumonectomy (Chronic) Right LL lobectomy due to benign tumor Peripheral vascular disease (Chronic) Radiculopathy affecting upper extremity (Chronic) Iron deficiency anemia (Chronic) Increased PTH level (Chronic) secondary to CRF stage4 Low vitamin D level (Chronic) Paroxysmal atrial fibrillation (Chronic) Nocturnal hypoxia (Chronic) Noncompliance with CPAP treatment (Chronic) LADARIUS (obstructive sleep apnea) (Chronic) Gout (Chronic) History of tobacco abuse (Chronic) quit in April 2017 Hx of CABG (Chronic) x3 2004 Coronary artery disease (Chronic) has had 3 stents.....the last stent he thinks in 2008 Hypertension (Chronic) Diabetes mellitus type 2 in obese (Chronic) Medical History: Medical History (Last Reviewed 08/01/18 @ 13:11 by Jose J Tucker DO) Nicotine dependence, cigarettes, in remission (Chronic) F17.211 Heme + stool (Chronic) R19.5 Acute renal failure superimposed on stage 4 chronic kidney disease (Acute) N17.9, N18.4 Radiculopathy affecting upper extremity (Chronic) M54.10 Iron deficiency anemia (Chronic) D50.9 Increased PTH level (Chronic) E34.9 secondary to CRF stage4 Metabolic acidosis (Acute) E87.2 Low vitamin D level (Chronic) E55.9 Paroxysmal atrial fibrillation (Chronic) I48.0 Nocturnal hypoxia (Chronic) G47.34 Noncompliance with CPAP treatment (Chronic) Z91.14 LADARIUS (obstructive sleep apnea) (Chronic) G47.33 Gout (Chronic) M10.9 History of tobacco abuse (Chronic) Z87.891 quit in April 2017 Coronary artery disease (Chronic) I25.10 has had 3 stents.....the last stent he thinks in 2008 Hypertension (Chronic) I10 Diabetes mellitus type 2 in obese (Chronic) E11.69, E66.9 Colon cancer C18.9 Acute exacerbation of chronic obstructive pulmonary disease (COPD) (Resolved) J44.1 Acute respiratory failure with hypoxemia (Resolved) J96.01 Influenza B (Resolved) J10.1 Lower GI bleed (Resolved) K92.2 Severe sepsis (Resolved) A41.9, R65.20 Streptococcal pneumonia (Resolved) J15.4 Urinary retention due to benign prostatic hyperplasia (Resolved) N40.1, R33.8 NSAID long-term use (Inactive) Z79.1 Non-STEMI (non-ST elevated myocardial infarction) (Inactive) I21.4 Allergies No Known Allergies Allergy (Verified 08/01/18 09:50) Home Medications: Ambulatory Orders Medication Instructions Recorded Aspirin 81 mg PO DAILY 05/14/17 Nitroglycerin (INPATIENT USE) 0.4 mg SUBLINGUAL Q5M PRN 05/14/17 [Nitrostat] Oxycodone [Oxyir] 5 mg PO BID PRN PRN 05/14/17 Simvastatin 80 mg PO QHS 05/14/17 Oxygen, Home [Home Oxygen] 2 - 3 lpm NASAL UD #1 unit 05/18/17 Albuterol Aerosols [Ventolin 2.5 mg INHALATION Q4H PRN PRN 09/15/17 Aerosols] Allopurinol [Zyloprim] 300 mg PO DAILY 09/15/17 Cilostazol 50 mg PO BID 09/15/17 Colchicine 0.6 mg PO TID PRN 09/15/17 Ergocalciferol [Vitamin D] 50,000 unit PO Q7D 09/15/17 Finasteride [Proscar] 5 mg PO DAILY 09/15/17 Isosorbide Mononitrate [Imdur] 30 mg PO DAILY 09/15/17 Metoprolol(XL)Succ [Toprol Xl 50 mg PO DAILY 09/15/17 (Beta Vanesa)] Nebulizer [Aeroneb Go Nebulizer] 1 ea MC 4X/DAY 09/15/17 Pantoprazole Sodium [Protonix] 40 mg PO DAILY 09/15/17 Tamsulosin HCl [Flomax] 0.4 mg PO DAILY@1730 09/15/17 hydrALAZINE [Apresoline] 25 mg PO TID 09/15/17 umeclidinium 62.5 mcg/actuation 1 inh INHALATION QDAY #30 ea 04/22/18 blister powder for inhalation Albuterol Inhaler [Ventolin Hfa] 1 - 2 puff INHALATION Q4H PRN PRN 05/12/18 Diazepam [Valium] 5 mg PO DAILY PRN 05/12/18 Insulin Aspart [Novolog Flexpen] 5 units SC TIDCM #0 05/16/18 Insulin Degludec [Tresiba 20 unit SC QHS #0 05/16/18 Flextouch U-100] Sodium Bicarbonate 650 mg PO TID #90 tablet 06/03/18 Vancomcyin 125mg/5mL PO Liquid 125 mg PO Q6 #28 po.syringe 06/03/18 Surgical History: Surgical History (Last Reviewed 08/01/18 @ 13:11 by Jose J Tucker DO) Hx of CABG (Chronic) Z95.1 x3 2003 H/O colectomy Z90.49 3/4 of colon, 12/2017, Dr. Alvarado with [facility] S/P removal of lung Z90.2 3/4 of right lung was removed by Dr. Todd in [facility] 11/2009 Surgical History: angioplasty - stent x2 2003, - - rt lung thoracotomy, lobectomy 2009 for benign tumor Lives: Spouse/ Significant Other Smoking Status: Current some day smoker Alcohol: None Drugs: None - *Family History Maternal Family History: Family History (Last Reviewed 08/01/18 @ 13:11 by Jose J Tucker DO) Father Leukemia Mother COPD (chronic obstructive pulmonary disease) History Items: COPD Paternal Family History: Family History (Last Reviewed 08/01/18 @ 13:11 by Jose J Tucker DO) Father Leukemia Mother COPD (chronic obstructive pulmonary disease) History Items: Cancer - leukemia, Hypertension Review of Systems Unable to obtain accurate/complete ROS d/t: intubated, partially sedated, obtunded Patient Problems: Active and Suspected Problems (Last Reviewed 08/01/18 @ 13:11 by Jose J Tucker DO) Hypotension, unspecified (Acute) Severe sepsis (Acute) Pseudomembranous enterocolitis (Acute) Hyperkalemia, diminished renal excretion (Acute) Cholelithiasis (Acute) Infectious encephalopathy (Acute) Uremia of renal origin (Acute) Hyperglycemia due to type 2 diabetes mellitus (Acute) Septic shock (Acute) NICK (acute kidney injury) (Acute) C. difficile colitis (Acute) Hyperkalemia (Acute) Metabolic acidosis (Acute) Hyponatremia (Acute) - Physical Exam General: - - intubated, sedated, HEENT: Atraumatic, PERRLA, EOMI, - - endotracheal tube in place and secured Lungs: Diminished, - - breath sounds symmetric before and after central line placement Cardiovascular: No murmurs, No rub noted, Tachycardic, - - significant ectopic activity with runs of nonsustained V. tach Abdomen: Soft, Non Tender, - - obese Vital Signs Temp Pulse Resp BP Pulse Ox 97.8 F 116 H 14 105/62 100 08/01/18 09:50 08/01/18 13:08 08/01/18 13:08 08/01/18 13:08 08/01/18 13:08 Oxygen Flow Rate (L/min) 2 Oxygen Delivery Method Mechanical Ventilator Weight: 90.718 kg Body Mass Index (BMI) 27.1 Laboratory Tests Past 24 Hrs 08/01/18 08/01/18 08/01/18 10:13 10:13 10:13 WBC 20.2 H RBC 4.59 L Hgb 13.3 Hct 40.2 MCV 87.6 MCH 29.0 MCHC 33.1 RDW 15.4 H RDW Differential 49.1 H Plt Count 242 MPV 13.6 H Immature Gran % (Auto) 0.700 Neut % (Auto) 63.9 Lymph % (Auto) 15.3 L Cook % (Auto) 7.8 Eos % (Auto) 12.3 H Baso % (Auto) 0.0 Absolute Neuts (auto) 12.9 H Absolute Lymphs (auto) 3.08 Total Counted Not Reportable Plt Morphology Comment LARGE Specimen Type Sample Site VBG pH VBG pO2 VBG O2 Sat (Calc) VBG O2 Content VBG Base Excess POC Mix VBG pCO2 Pt Tmp O2 Delivery Device Liter Flow Blood Gas Notified Whom Blood Gas Notified Time Sodium 129 L Potassium 6.2 H* Chloride 102 Carbon Dioxide 12.0 L Anion Gap 15 BUN 104 H* Creatinine 11.70 H* Estim Creat Clear Calc 7.09 Est GFR (MDRD) Af Amer 6 L Est GFR (MDRD) Non-Af 5 L BUN/Creatinine Ratio 8.9 L Glucose 276 H Lactic Acid 2.2 H Calcium 9.1 Total Bilirubin 0.30 AST 12 L ALT 20 Alkaline Phosphatase 191 H Troponin I < 0.015 Total Protein 8.5 H Albumin 3.5 Globulin 5.0 H Albumin/Globulin Ratio 0.7 L Urine Color Urine Clarity Urine pH Ur Specific [place] Urine Protein Urine Glucose (UA) Urine Ketones Urine Occult Blood Urine Nitrite Urine Bilirubin Urine Urobilinogen Ur Leukocyte Esterase Urine RBC Urine WBC Ur Squamous Epith Cells Urine Bacteria Urine Mucus 08/01/18 08/01/18 08/01/18 11:04 11:50 12:30 WBC RBC Hgb Hct MCV MCH MCHC RDW RDW Differential Plt Count MPV Immature Gran % (Auto) Neut % (Auto) Lymph % (Auto) Cook % (Auto) Eos % (Auto) Baso % (Auto) Absolute Neuts (auto) Absolute Lymphs (auto) Total Counted Plt Morphology Comment Specimen Type SHERI Sample Site OTHER VBG pH 7.07 L* VBG pO2 37 VBG O2 Sat (Calc) 49 L VBG O2 Content 11 L VBG Base Excess -20 L POC Mix VBG pCO2 Pt Tmp 35.8 L O2 Delivery Device Nasal Can Liter Flow 2.0 Blood Gas Notified Whom ED Blood Gas Notified Time 1102 Sodium Potassium 6.6 H* Chloride Carbon Dioxide Anion Gap BUN Creatinine Estim Creat Clear Calc Est GFR (MDRD) Af Amer Est GFR (MDRD) Non-Af BUN/Creatinine Ratio Glucose Lactic Acid Calcium Total Bilirubin AST ALT Alkaline Phosphatase Troponin I Total Protein Albumin Globulin Albumin/Globulin Ratio Urine Color Yellow Urine Clarity Cloudy Urine pH 5.0 Ur Specific [place] 1.020 Urine Protein 100 H Urine Glucose (UA) 100 H Urine Ketones Negative Urine Occult Blood 25 H Urine Nitrite Negative Urine Bilirubin Negative Urine Urobilinogen Normal Ur Leukocyte Esterase 500 H Urine RBC 0 SEEN Urine WBC >100 SEEN Ur Squamous Epith Cells 0 SEEN Urine Bacteria 0 SEEN Urine Mucus 0 SEEN Assessment/Plan All Active Problems (Last Reviewed 08/01/18 @ 13:11 by Jose J Tucker DO) Hypotension, unspecified (Acute) Severe sepsis (Acute) Pseudomembranous enterocolitis (Acute) Hyperkalemia, diminished renal excretion (Acute) Cholelithiasis (Acute) Infectious encephalopathy (Acute) Uremia of renal origin (Acute) Hyperglycemia due to type 2 diabetes mellitus (Acute) Septic shock (Acute) NICK (acute kidney injury) (Acute) C. difficile colitis (Acute) Hyperkalemia (Acute) Metabolic acidosis (Acute) Hyponatremia (Acute) Clostridium difficile colitis (Acute) Gastroenteritis (Acute) NICK (acute kidney injury) (Acute) Hyperkalemia (Acute) Acute renal failure superimposed on stage 4 chronic kidney disease (Acute) Metabolic acidosis (Acute) Acute exacerbation of chronic obstructive pulmonary disease (COPD) (Resolved) Acute respiratory failure with hypoxemia (Resolved) Benign neoplasm of right lung (Resolved) Influenza B (Resolved) Lower GI bleed (Resolved) Severe sepsis (Resolved) Streptococcal pneumonia (Resolved) Urinary retention due to benign prostatic hyperplasia (Resolved) clinically septic shock, hyperkalemia, acute on chronic renal failure, cardiac arrhythmias need for emergent dialysis access and vascular access I plan to perform right internal jugular and attempted right subclavian vascular access. The family consents for these emergency procedures and understands the risks and benefits. Postprocedure x-ray demonstrated good placement of the catheter with no pneumothoraces. Endotracheal tube was noted to be in good position. A KUB was obtained which demonstrated the oral gastric tube is noted to be in good position. Catheters appropriate for use for dialysis and the triple-lumen is appropriate for IV medications and blood draws as needed. I spoke with the and family members and discussed with them that the access procedures were successful and the lines are in good position.
[2018-08-01 15:47] LABS: Magnesium 1.7 mg/dL (1.6-2.6)
[2018-08-01 17:01] LABS: Allen Test POS; Base Excess -10 mmol/L (-2 to +2); Bicarbonate 17.1 mmol/L (22-26); Blood Gas Specimen Type ART; FI02 35; Mode A-C; O2 Delivery Device Vent; PEEP 5; PO2 85 mmHG (75-100); RR 14; SITE R Radial; SO2 95 % (95-99); Time Given 1653; Total Carbon Dioxide 18 mmol/L; Vt 500; pCO2 37.8 mmHg (35-45); pH 7.26 (7.35-7.45)
[2018-08-01] MEDS: Heparin 10,000 UNITS/10 ML Vial IV (19:38)
[2018-08-01] MEDS: Insulin Lispro 100 UNIT/ML INSULN.PEN SQ (19:49)
[2018-08-01 20:06] LABS: Bedside Glucose 179 mg/dL (70-110)
[2018-08-01 20:57] LABS: Vancomycin, Random Level < 0.8 ug/mL (0.0-15.0)
[2018-08-01] MEDS: Cilostazol 50 MG Tablet NG (22:43)
--- NOTE | 2018-08-01 22:45 | EKG12_ITS ---
Test Reason : ELEVATED TROP Blood Pressure : / mmHG Vent. Rate : 057 BPM Atrial Rate : 057 BPM P-R Int : 234 ms QRS Dur : 084 ms QT Int : 468 ms P-R-T Axes : 027 050 065 degrees QTc Int : 455 ms Sinus bradycardia with 1st degree A-V block Otherwise normal ECG When compared with ECG of 01-AUG-2018 22:47, MANUAL COMPARISON REQUIRED, DATA IS UNCONFIRMED Confirmed by HARSH ASIF, SARA ([id number]), editor magazine JARED MADRID ([id number]) on 08/04/2018 11:23:38 AM Referred By: Daysi Magana Confirmed By:SARA HOUSE MD
--- NOTE | 2018-08-01 22:47 | EKG12_ITS ---
Test Reason : ARHYTHMIA Blood Pressure : / mmHG Vent. Rate : 085 BPM Atrial Rate : 085 BPM P-R Int : 214 ms QRS Dur : 084 ms QT Int : 388 ms P-R-T Axes : 048 057 100 degrees QTc Int : 461 ms Sinus rhythm with 1st degree A-V block Nonspecific T wave abnormality Prolonged QT Abnormal ECG When compared with ECG of 01-AUG-2018 11:40, MANUAL COMPARISON REQUIRED, DATA IS UNCONFIRMED Reconfirmed by HARSH ASIF, SARA ([id number]), index editor KEVIN MORRELL ([id number]) on 08/04/2018 2:26:31 PM Referred By: Daysi Magana Confirmed By:SARA HOUSE MD
[2018-08-01] MEDS: Chlorhexidine 15 ML PO (22:51)
[2018-08-01] MEDS: Atorvastatin Calcium 80 MG Tablet PO (22:58)
[2018-08-01 23:06] LABS: International Normalized Ratio 1.1; Prothrombin Time (Protime)PT. 13.7 SECONDS (11.7-14.9)
[2018-08-01 23:07] LABS: Partial Thromboplast Time 33.2 Seconds (24.1-36.2)
[2018-08-01 23:08] LABS: Absolute Lymphocyte Count 1.94 X10^3/ul (0.83-4.51); Absolute Neutrophil Count 7.6 X10^3/uL (2.0-7.7); Basophil# 0.02 X10^3/uL; Basophil% 0.2 % (0-1); Eosinophil# 1.34 X10^3/uL; Eosinophils% 10.9 % (0-5); Hematocrit 30.9 % (40-54); Hemoglobin 10.2 g/dl (13.0-16.5); Lymphocyte # 1.94 X10^3/ul (4.0); Lymphocyte % 15.8 % (19-41); Mean Corpuscular Hgb 28.1 pg (27.0-32.0); Mean Corpuscular Volume 85.1 fL (80-94); Mean Platelet Vol. 12.6 fl (6.2-12.0); Monocyte# 1.31 X10^3/uL; Monocyte% 10.7 % (0-10); Neutrophil # 7.57 X10^3/uL (2.7-7.7); Neutrophil % 61.8 % (47-70); POSITIVE COUNT NO; POSITIVE DIFFERENTIAL NO; POSITIVE MORPHOLOGY NO; Platelet Count 194 K/mm3 (150-450); RBC Distribution Width SD 47.1 fl (35.1-43.9); Red Blood Count 3.63 M/mm3 (4.6-6.2); White Blood Count 12.3 K/mm3 (4.4-11.0)
[2018-08-01 23:15] LABS: Bedside Glucose 151 mg/dL (70-110)
[2018-08-01 23:17] LABS: Magnesium 1.3 mg/dL (1.6-2.6)
[2018-08-01] MEDS: Aspirin 81 MG TAB.CHEW 162 MG GT (23:49)
[2018-08-01] MEDS: Heparin Injection (Vial) 5,000 UNIT/ML VIAL 4000 UNIT IV (23:50)
[2018-08-02] VITALS (71 sets, daily range): BP systolic 62–164; BP diastolic 41–92; PULSE 53–83; RESP 12–26; TEMP 36.7–38.1; O2SAT 100
[2018-08-02] MEDS: Insulin Lispro 100 UNIT/ML INSULN.PEN SQ ×5 (00:22→23:35)
[2018-08-02] MEDS: Clopidogrel Bisulfate 300 MG Tablet GT (00:37)
--- NOTE | 2018-08-02 00:39 | PCM.CONS.C ---
Problem List (1) NSTEMI (non-ST elevated myocardial infarction) Status: Acute (2) Coronary artery disease Status: Chronic Qualifiers: Coronary Disease-Associated Artery/Lesion type: craig artery [place] vs. transplanted heart: craig heart Comment: has had 3 stents.....the last stent he thinks in 2008 (3) S/P PTCA (percutaneous transluminal coronary angioplasty) Status: Chronic (4) Paroxysmal atrial fibrillation Status: Chronic (5) HLD (hyperlipidemia) Status: Chronic Qualifiers: Hyperlipidemia type: unspecified Qualified Code(s): E78.5 - Hyperlipidemia, unspecified (6) Hypertension Status: Chronic (7) Diabetes mellitus type 2 in obese Status: Chronic (8) Peripheral vascular disease Status: Chronic (9) H/O pneumonectomy Status: Chronic Comment: Right LL lobectomy due to benign tumor (10) Hypotension, unspecified Status: Acute (11) Metabolic acidosis Status: Acute (12) Hyperkalemia, diminished renal excretion Status: Acute (13) Acute renal failure superimposed on stage 3 chronic kidney disease Status: Chronic (14) Severe sepsis Status: Acute (15) Clostridium difficile colitis Status: Chronic Reason for Consult Date of Consultation: 08/02/18 History of Present Illness: The patient is a 62 year old white male with a past cardiovascular diagnosis of hyperlipidemia, hypertension, CAD, status post LAD PTCA/stent and LCx PTCA/stent (2003), paroxysmal atrial fibrillation, peripheral vascular disease, diabetes mellitus, status post pneumonectomy, who now presents for evaluation of abnormal cardiac enzymes compatible with an acute non-ST segment elevation OR in the setting of hypotension, metabolic acidosis, hyperkalemia, acute on chronic renal insufficiency, thought secondary to an underlying sepsis syndrome potentially related to a history of C. difficile toxin colitis. The patient presented to the [facility] earlier this day for concerns of shortness of breath, lightheadedness, and weakness. Status post evaluation he was given the aforementioned acute on chronic diagnosis. He received medical therapy with IV fluids, treatment for hyperkalemia, mechanical intubation/ventilation, establishment of central venous catheter and subsequently dialysis catheter, and additional medical support. He was placed in the ICU for further evaluation and care. In the ICU he is required IV fluids and IV vasopressor agents. He received hemodialysis to assist with his underlying hyperkalemia and renal insufficiency without significant fluid removal. During this time he has been followed from a cardiac standpoint with cardiac enzymes, cardiac rhythm monitoring, and ECGs. His cardiac enzymes have turned positive. His cardiac rhythm did demonstrate an episode of an irregular wide-complex tachycardia potentially compatible with nonsustained ventricular tachycardia (approximately 12 beats in duration). He has had ECGs performed in the emergency department and in the ICU. It appears that an initial ECG demonstrated underlying sinus rhythm with a first-degree AV block with nonspecific T wave abnormality. He had subsequent ECGs, during sinus tachycardia, where he appeared to have sinus tachycardia with a first-degree AV block with a nonspecific IVCD (left-sided). A subsequent ECG demonstrated similar type findings. Another ECG, when his heart rate was less than 100 bpm, demonstrated sinus rhythm with a first-degree AV block with nonspecific T wave changes. A chest x-ray was performed which demonstrated a central venous catheter as well as diminished inspiratory effort and postoperative fibrotic changes involving the right upper lobe area (please see official report). At the present time the patient remains mechanically intubated and ventilated. He does appear to open his eyes to verbal stimuli and respond to verbal commands. He denies ongoing chest discomfort. [] Past Medical History Allergies/Adverse Reactions: Allergies No Known Allergies Allergy (Verified 08/01/18 09:50) Home Medications: Ambulatory Orders Medication Instructions Recorded RX: Aspirin 81 mg PO DAILY 05/14/17 RX: Nitroglycerin (INPATIENT USE) 0.4 mg SUBLINGUAL Q5M PRN 05/14/17 [Nitrostat] RX: Oxycodone [Oxyir] 5 mg PO BID PRN PRN 05/14/17 RX: Simvastatin 80 mg PO QHS 05/14/17 RX: Oxygen, Home [Home Oxygen] 2 - 3 lpm NASAL UD #1 unit 05/18/17 RX: Albuterol Aerosols [Ventolin 2.5 mg INHALATION Q4H PRN PRN 09/15/17 Aerosols] RX: Allopurinol [Zyloprim] 300 mg PO DAILY 09/15/17 RX: Cilostazol 50 mg PO BID 09/15/17 RX: Colchicine 0.6 mg PO TID PRN 09/15/17 RX: Ergocalciferol [Vitamin D] 50,000 unit PO Q7D 09/15/17 RX: Finasteride [Proscar] 5 mg PO DAILY 09/15/17 RX: Isosorbide Mononitrate [Imdur] 30 mg PO DAILY 09/15/17 RX: Metoprolol(XL)Succ [Toprol Xl 50 mg PO DAILY 09/15/17 (Beta Vanesa)] RX: Nebulizer [Aeroneb Go 1 ea MC 4X/DAY 09/15/17 Nebulizer] RX: Pantoprazole Sodium [Protonix] 40 mg PO DAILY 09/15/17 RX: Tamsulosin HCl [Flomax] 0.4 mg PO DAILY@1730 09/15/17 RX: hydrALAZINE [Apresoline] 25 mg PO TID 09/15/17 umeclidinium 62.5 mcg/actuation 1 inh INHALATION QDAY #30 ea 04/22/18 blister powder for inhalation RX: Albuterol Inhaler [Ventolin 1 - 2 puff INHALATION Q4H PRN PRN 05/12/18 Hfa] RX: Diazepam [Valium] 5 mg PO DAILY PRN 05/12/18 RX: Insulin Aspart [Novolog 5 units SC TIDCM #0 05/16/18 Flexpen] RX: Insulin Degludec [Tresiba 20 unit SC QHS #0 05/16/18 Flextouch U-100] RX: Sodium Bicarbonate 650 mg PO TID #90 tablet 06/03/18 RX: Vancomcyin 125mg/5mL PO Liquid 125 mg PO Q6 #28 po.syringe 06/03/18 Past Medical History (Chronic Problems): Chronic Problems (Last Reviewed 08/01/18 @ 13:11 by Jose J Tucker DO) Acute renal failure superimposed on stage 3 chronic kidney disease (Chronic) S/P PTCA (percutaneous transluminal coronary angioplasty) (Chronic) HLD (hyperlipidemia) (Chronic) Clostridium difficile colitis (Chronic) Chronic hypoxemic respiratory failure (Chronic) 2-3 LPM chronically Colon cancer (Chronic) had surgery with no chemo or radiation at [facility] fall Status post colon resection (Chronic) subtotal for colon CA in the fall at [facility] Hemorrhoids (Chronic) CKD (chronic kidney disease) stage 4, GFR 15-29 ml/min (Chronic) Nicotine dependence, cigarettes, in remission (Chronic) Stage 3 severe COPD by GOLD classification (Chronic) FEV1 37% predicted Heme + stool (Chronic) Anemia of chronic renal failure (Chronic) H/O pneumonectomy (Chronic) Right LL lobectomy due to benign tumor Peripheral vascular disease (Chronic) Radiculopathy affecting upper extremity (Chronic) Iron deficiency anemia (Chronic) Increased PTH level (Chronic) secondary to CRF stage4 Low vitamin D level (Chronic) Paroxysmal atrial fibrillation (Chronic) Nocturnal hypoxia (Chronic) Noncompliance with CPAP treatment (Chronic) LADARIUS (obstructive sleep apnea) (Chronic) Gout (Chronic) History of tobacco abuse (Chronic) quit in April 2017 Hx of CABG (Chronic) x3 2003 Coronary artery disease (Chronic) has had 3 stents.....the last stent he thinks in 2008 Hypertension (Chronic) Diabetes mellitus type 2 in obese (Chronic) Surgical History: angioplasty - stent x2 2003, - - rt lung thoracotomy, lobectomy 2009 for benign tumor - *Family History Maternal Family History: Family History (Last Reviewed 08/01/18 @ 13:11 by Jose J Tucker DO) Father Leukemia Mother COPD (chronic obstructive pulmonary disease) History Items: COPD Paternal Family History: Family History (Last Reviewed 08/01/18 @ 13:11 by Jose J Tucker DO) Father Leukemia Mother COPD (chronic obstructive pulmonary disease) History Items: Cancer - leukemia, Hypertension Lives: Spouse/ Significant Other Smoking Status: Current some day smoker Alcohol: None Drugs: None Review of Systems - Review of Systems General: Reports: Weakness. Denies: Fever, Fatigue, Night Sweats Cardiovascular: Reports: Shortness of Breath, Lightheadedness. Denies: Chest Discomfort, Orthopnea, PND, Peripheral Edema, Palpitations, Dizziness, Near Syncope, Syncope Respiratory: Reports: Shortness of Breath. Denies: Cough, Sputum Production, Hemoptysis Gastrointestinal: Denies: Hematemesis, Hematochezia, Melena Genitourinary: Denies: Dysuria, Hematuria Skin: Denies: Rash Subjectve: This is a 62-year-old white male who is mechanically intubated and ventilated. Objective: Vital Signs Temp Pulse Resp BP Pulse Ox 99.0 F 77 14 106/62 100 08/01/18 22:00 08/01/18 23:00 08/01/18 23:00 08/01/18 23:00 08/01/18 23:00 Oxygen Flow Rate (L/min) 2 Oxygen Delivery Method Mechanical Ventilator Weight: 216 lb 7.903 oz Body Mass Index (BMI) 29.3 Intake and Output for Last 24 Hours 07/31/18 08/01/18 08/02/18 23:59 23:59 23:59 Intake Total 1388 / 1388 Output Total 225 / 225 Balance 1163 / 1163 General: Ill Appearing HEENT: Atraumatic, Normocephalic, PERRL Oral: Moist Mucosa Neck: Supple, No JVD Lungs: Rhonchi Cardiovascular: Regular Rhythm, Normal S1, Normal S2 Vascular: No Carotid Bruits Abdomen: Bowel Sounds Present, Soft, Non Tender Extremities: No edema 08/01/18 10:13: Sodium 129 L, Potassium 6.2 H*, Chloride 102, Carbon Dioxide 12.0 L, Anion Gap 15, BUN 104 H*, Creatinine 11.70 H*, Est GFR (MDRD) Af Amer 6 L, Est GFR (MDRD) Non-Af 5 L, BUN/Creatinine Ratio 8.9 L, Glucose 276 H, Calcium 9.1, Total Bilirubin 0.30, Troponin I < 0.015 08/01/18 10:13: Lactic Acid 2.2 H 08/01/18 10:13: WBC 20.2 H, RBC 4.59 L, Hgb 13.3, Hct 40.2, MCV 87.6, MCH 29.0, MCHC 33.1, RDW 15.4 H, RDW Differential 49.1 H, Plt Count 242, MPV 13.6 H, Immature Gran % (Auto) 0.700, Neut % (Auto) 63.9, Lymph % (Auto) 15.3 L, [place] % (Auto) 7.8, Eos % (Auto) 12.3 H, Baso % (Auto) 0.0, Absolute Neuts (auto) 12.9 H, Total Counted Not Reportable 08/01/18 11:04: VBG pH 7.07 L*, VBG pO2 37, VBG O2 Sat (Calc) 49 L, VBG O2 Content 11 L, VBG Base Excess -20 L 08/01/18 11:50: Potassium 6.6 H* 08/01/18 12:30: Urine Color Yellow, Urine Clarity Cloudy, Urine pH 5.0, Ur Specific [place] 1.020, Urine Protein 100 H, Urine Glucose (UA) 100 H, Urine Ketones Negative, Urine Occult Blood 25 H, Urine Nitrite Negative, Urine Bilirubin Negative, Urine Urobilinogen Normal, Ur Leukocyte Esterase 500 H, Urine RBC 0 SEEN, Urine WBC >100 SEEN 08/01/18 14:30: Magnesium 1.7, Troponin I 0.017 08/01/18 16:56: pH 7.26 L, Bicarbonate Actual 17.1 L, POC Total CO2 18, Base Excess -10 L, O2 Saturation 95, ABG pCO2 37.8, ABG pO2 85, Donnie Test POS 08/01/18 19:20: Troponin I 3.250 H* 08/01/18 22:38: Magnesium 1.3 L, Troponin I 5.540 H* 08/01/18 22:38: PT 13.7, INR 1.1, APTT 33.2 08/01/18 22:50: WBC 12.3 H, RBC 3.63 L, Hgb 10.2 L, Hct 30.9 L, MCV 85.1, MCH 28.1, MCHC 33.0, RDW 15.0 H, RDW Differential 47.1 H, Plt Count 194, MPV 12.6 H, Immature Gran % (Auto) 0.600, Neut % (Auto) 61.8, Lymph % (Auto) 15.8 L, [place] % (Auto) 10.7 H, Eos % (Auto) 10.9 H, Baso % (Auto) 0.2, Absolute Neuts (auto) 7.6, Total Counted Not Reportable Rhythm: As noted above EKG: As noted above ECHO:?28?18: Left ventricle normal with an LVEF 65%; trivial TR; estimated RV systolic pressure 40 mmHg; decreased diastolic compliance Stress Test: 11-23-09: Pharmacologic stress nuclear imaging study: Abnormal myocardial perfusion scan with evidence of inferior ischemia Cardiac Cath: 11-27-09: [facility]: Left main coronary artery normal; LAD stented with minimal in-stent stenosis; LCx with a proximal hazy area; RCA considered nondominant with no significant stenosis; left ventricle considered to have preserved systolic function with an LVEF reported at 55 to 60% PCI: 04-19-2003: [facility]: LAD PTCA/stent and LCx PTCA/stent CXR: As noted above Carotid artery duplex study: 02-09-2010: No significant atherosclerotic plaque or stenosis noted in the internal carotid arteries bilaterally. Flow within the vertebral arteries is antegrade bilaterally Assessment/Plan 1. Acute non-ST segment elevation OR The patient is in the ICU undergoing evaluation care of the aforementioned multiple medical issues. He has been found to have abnormal cardiac enzymes compatible with an acute non-ST segment elevation OR. This may be a secondary type II event related to his underlying noncardiovascular condition with respect to his hypotension, metabolic acidosis, hyperkalemia, with acute on chronic renal insufficiency secondary to his sepsis syndrome. At the present time he will continue to be monitored. His cardiac enzymes will be followed. His cardiac rhythm and ECGs will be followed. A transthoracic echocardiogram can be requested to reassess his left ventricular wall motion and systolic function. In the interim he is being treated medically. This would include aspirin, antiplatelet therapy, anticoagulant therapy, and lipid-lowering therapy. Based upon his hypotension requiring IV vasopressor support he is not a candidate for agents such as nitrates or beta-blockers at this time. Also, based upon his acute noncardiovascular related issues including his acute on chronic renal insufficiency he is not an ideal candidate for further evaluation with diagnostic cardiac catheterization at this time would include concerns of underlying IV contrast related nephropathy superimposed upon his underlying acute on chronic renal insufficiency and the potential for prolonged or permanent hemodialysis superimposed upon his temporary dialysis. Thus at the present time he will continue conservative medical management. 2. CAD status post PCI He does have a history of underlying CAD and PCI as noted above. Again, at the present time, he is cardiac enzyme change may be a type II event secondary to supply demand mismatch secondary to his multiple noncardiovascular issues in progress. He will continue to be monitored. He will continue noninvasive evaluation. He will continue medical therapy and support. Again he is not an ideal candidate for further evaluation in the cardiac catheterization laboratory at this time. 3. Paroxysmal atrial fibrillation He has a history of underlying paroxysmal atrial fibrillation. He was evaluated in cardiovascular consultation for such in April 2017. At that time he did not receive anticoagulant therapy secondary to concerns of underlying gastrointestinal related bleeding process. 4. Nonsustained wide-complex tachycardia He had an episode of nonsustained wide-complex tachycardia. It may be compatible with nonsustained ventricular tachycardia. Based upon his ongoing noncardiac and cardiac issues he will continue to be followed and treated medically. This will include electrolyte support. This will also include antiarrhythmic therapy with IV amiodarone. 5. Hyperlipidemia He can continue lipid evaluation care as deemed appropriate. 6. Hypertension The present time he is hypotensive thought secondary to his sepsis syndrome. He is continuing IV volume support and IV vasopressor support. 7. Diabetes mellitus He will continue evaluation care per internal medicine. 8. Peripheral vascular disease He has a report of underlying peripheral vascular disease. The details are unknown at this time. He has been on Pletal. With respect to his cardiovascular condition his Pletal would be placed on hold as he will be receiving other antiplatelet therapy at this time. 9. 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 10. Hypotension Again he has hypotensive thought secondary to an underlying sepsis syndrome as supported by his elevated white count, elevated lactic acid level, superimposed upon his other clinical symptoms/objective markers. He is receiving IV fluids and IV vasopressor support. 11. Metabolic acidosis He is undergoing evaluation care per internal medicine for such. This is included medical therapy as well as mechanical intubation/ventilation. 12. Hyperkalemia He is undergone medical management and acute hemodialysis. 13. Acute on chronic renal insufficiency He does appear to have a history of chronic renal insufficiency. He has had waxing and waning levels. There is been some concern in the past that his acute episodes may be related to changes in his volume status. At the present time his creatinine level is markedly elevated. He is being treated with IV fluids. He has also undergone hemodialysis. 14. Sepsis He has been diagnosed with sepsis. Again this is based on his clinical scenario and objective markers. He has been receiving IV fluids and IV vasopressor support. 15. C. difficile colitis He has previously been diagnosed with C. difficile toxin. He has been treated medically. He is undergoing reevaluation at this time. In the meantime he is being treated medically with antibiotic therapy with vancomycin and Flagyl. Comment: The above was discussed with the [facility] staff and the [facility] ICU staff. This note was generated with ticckleation software. It may contain incorrect words, spelling, and punctuation that were not noted in checking the note before signing.
--- NOTE | 2018-08-02 00:43 | CON.PCM_ITS ---
Problem List (1) NSTEMI (non-ST elevated myocardial infarction) Status: Acute (2) Coronary artery disease Status: Chronic Qualifiers: Coronary Disease-Associated Artery/Lesion type: [place] artery [place] vs. transplanted heart: [place] heart Comment: has had 3 stents.....the last stent he thinks in 2008 (3) S/P PTCA (percutaneous transluminal coronary angioplasty) Status: Chronic (4) Paroxysmal atrial fibrillation Status: Chronic (5) HLD (hyperlipidemia) Status: Chronic Qualifiers: Hyperlipidemia type: unspecified Qualified Code(s): E78.5 - Hyperlipidemia, unspecified (6) Hypertension Status: Chronic (7) Diabetes mellitus type 2 in obese Status: Chronic (8) Peripheral vascular disease Status: Chronic (9) H/O pneumonectomy Status: Chronic Comment: Right LL lobectomy due to benign tumor (10) Hypotension, unspecified Status: Acute (11) Metabolic acidosis Status: Acute (12) Hyperkalemia, diminished renal excretion Status: Acute (13) Acute renal failure superimposed on stage 3 chronic kidney disease Status: Chronic (14) Severe sepsis Status: Acute (15) Clostridium difficile colitis Status: Chronic Reason for Consult Date of Consultation: 08/02/18 History of Present Illness: The patient is a 62 year old white male with a past cardiovascular diagnosis of hyperlipidemia, hypertension, CAD, status post LAD PTCA/stent and LCx PTCA/stent (2003), paroxysmal atrial fibrillation, peripheral vascular disease, diabetes mellitus, status post pneumonectomy, who now presents for evaluation of abnormal cardiac enzymes compatible with an acute non-ST segment elevation MD in the setting of hypotension, metabolic acidosis, hyperkalemia, acute on chronic renal insufficiency, thought secondary to an underlying sepsis syndrome potentially related to a history of C. difficile toxin colitis. The patient presented to the [facility] earlier this day for concerns of shortness of breath, lightheadedness, and weakness. Status post evaluation he was given the aforementioned acute on chronic diagnosis. He received medical therapy with IV fluids, treatment for hyperkalemia, mechanical intubation/ventilation, establishment of central venous catheter and subsequently dialysis catheter, and additional medical support. He was placed in the ICU for further evaluation and care. In the ICU he is required IV fluids and IV vasopressor agents. He received hemodialysis to assist with his underlying hyperkalemia and renal insufficiency without significant fluid removal. During this time he has been followed from a cardiac standpoint with cardiac enzymes, cardiac rhythm monitoring, and ECGs. His cardiac enzymes have turned positive. His cardiac rhythm did demonstrate an episode of an irregular wide- complex tachycardia potentially compatible with nonsustained ventricular tachycardia (approximately 12 beats in duration). He has had ECGs performed in the emergency department and in the ICU. It appears that an initial ECG demonstrated underlying sinus rhythm with a first-degree AV block with nonspecific T wave abnormality. He had subsequent ECGs, during sinus tac hycardia, where he appeared to have sinus tachycardia with a first-degree AV block with a nonspecific IVCD (left-sided). A subsequent ECG demonstrated similar type findings. Another ECG, when his heart rate was less than 100 bpm, demonstrated sinus rhythm with a first-degree AV block with nonspecific T wave changes. A chest x-ray was performed which demonstrated a central venous catheter as well as diminished inspiratory effort and postoperative fibrotic changes involving the right upper lobe area (please see official report). At the present time the patient remains mechanically intubated and ventilated. He does appear to open his eyes to verbal stimuli and respond to verbal commands. He denies ongoing chest discomfort. [] Past Medical History Allergies/Adverse Reactions: Allergies No Known Allergies Allergy (Verified 08/01/18 09:50) Home Medications: Ambulatory Orders Medication Instructions Recorded RX: Aspirin 81 mg PO DAILY 05/14/17 RX: Nitroglycerin (INPATIENT USE) 0.4 mg SUBLINGUAL Q5M PRN 05/14/17 [Nitrostat] RX: Oxycodone [Oxyir] 5 mg PO BID PRN PRN 05/14/17 RX: Simvastatin 80 mg PO QHS 05/14/17 RX: Oxygen, Home [Home Oxygen] 2 - 3 lpm NASAL UD #1 unit 05/18/17 RX: Albuterol Aerosols [Ventolin 2.5 mg INHALATION Q4H PRN PRN 09/15/17 Aerosols] RX: Allopurinol [Zyloprim] 300 mg PO DAILY 09/15/17 RX: Cilostazol 50 mg PO BID 09/15/17 RX: Colchicine 0.6 mg PO TID PRN 09/15/17 RX: Ergocalciferol [Vitamin D] 50,000 unit PO Q7D 09/15/17 RX: Finasteride [Proscar] 5 mg PO DAILY 09/15/17 RX: Isosorbide Mononitrate [Imdur] 30 mg PO DAILY 09/15/17 RX: Metoprolol(XL)Succ [Toprol Xl 50 mg PO DAILY 09/15/17 (Beta Vanesa)] RX: Nebulizer [Aeroneb Go 1 ea MC 4X/DAY 09/15/17 Nebulizer] RX: Pantoprazole Sodium [Protonix] 40 mg PO DAILY 09/15/17 RX: Tamsulosin HCl [Flomax] 0.4 mg PO DAILY@1730 09/15/17 RX: hydrALAZINE [Apresoline] 25 mg PO TID 09/15/17 umeclidinium 62.5 mcg/actuation 1 inh INHALATION QDAY #30 ea 04/22/18 blister powder for inhalation RX: Albuterol Inhaler [Ventolin 1 - 2 puff INHALATION Q4H PRN PRN 05/12/18 Hfa] RX: Diazepam [Valium] 5 mg PO DAILY PRN 05/12/18 RX: Insulin Aspart [Novolog 5 units SC TIDCM #0 05/16/18 Flexpen] RX: Insulin Degludec [Tresiba 20 unit SC QHS #0 05/16/18 Flextouch U-100] RX: Sodium Bicarbonate 650 mg PO TID #90 tablet 06/03/18 RX: Vancomcyin 125mg/5mL PO Liquid 125 mg PO Q6 #28 po.syringe 06/03/18 Past Medical History (Chronic Problems): Chronic Problems (Last Reviewed 08/01/18 @ 13:11 by Jose J Tucker DO) Acute renal failure superimposed on stage 3 chronic kidney disease (Chronic) S/P PTCA (percutaneous transluminal coronary angioplasty) (Chronic) HLD (hyperlipidemia) (Chronic) Clostridium difficile colitis (Chronic) Chronic hypoxemic respiratory failure (Chronic) 2-3 LPM chronically Colon cancer (Chronic) had surgery with no chemo or radiation at [facility] fall Status post colon resection (Chronic) subtotal for colon CA in the fall at [facility] Hemorrhoids (Chronic) CKD (chronic kidney disease) stage 4, GFR 15-29 ml/min (Chronic) Nicotine dependence, cigarettes, in remission (Chronic) Stage 3 severe COPD by GOLD classification (Chronic) FEV1 37% predicted Heme + stool (Chronic) Anemia of chronic renal failure (Chronic) H/O pneumonectomy (Chronic) Right LL lobectomy due to benign tumor Peripheral vascular disease (Chronic) Radiculopathy affecting upper extremity (Chronic) Iron deficiency anemia (Chronic) Increased PTH level (Chronic) secondary to CRF stage4 Low vitamin D level (Chronic) Paroxysmal atrial fibrillation (Chronic) Nocturnal hypoxia (Chronic) Noncompliance with CPAP treatment (Chronic) LADARIUS (obstructive sleep apnea) (Chronic) Gout (Chronic) History of tobacco abuse (Chronic) quit in April 2017 Hx of CABG (Chronic) x3 2003 Coronary artery disease (Chronic) has had 3 stents.....the last stent he thinks in 2008 Hypertension (Chronic) Diabetes mellitus type 2 in obese (Chronic) Surgical History: angioplasty - stent x2 2003, - - rt lung thoracotomy, lobectomy 2009 for benign tumor - *Family History Maternal Family History: Family History (Last Reviewed 08/01/18 @ 13:11 by Jose J Tucker DO) Father Leukemia Mother COPD (chronic obstructive pulmonary disease) History Items: COPD Paternal Family History: Family History (Last Reviewed 08/01/18 @ 13:11 by Jose J Tucker DO) Father Leukemia Mother COPD (chronic obstructive pulmonary disease) History Items: Cancer - leukemia, Hypertension Lives: Spouse/ Significant Other Smoking Status: Current some day smoker Alcohol: None Drugs: None Review of Systems - Review of Systems General: Reports: Weakness. Denies: Fever, Fatigue, Night Sweats Cardiovascular: Reports: Shortness of Breath, Lightheadedness. Denies: Chest Discomfort, Orthopnea, PND, Peripheral Edema, Palpitations, Dizziness, Near Syncope, Syncope Respiratory: Reports: Shortness of Breath. Denies: Cough, Sputum Production, Hemoptysis Gastrointestinal: Denies: Hematemesis, Hematochezia, Melena Genitourinary: Denies: Dysuria, Hematuria Skin: Denies: Rash Subjectve: This is a 62-year-old white male who is mechanically intubated and ventilated. Objective: Vital Signs Temp Pulse Resp BP Pulse Ox 99.0 F 77 14 106/62 100 08/01/18 22:00 08/01/18 23:00 08/01/18 23:00 08/01/18 23:00 08/01/18 23:00 Oxygen Flow Rate (L/min) 2 Oxygen Delivery Method Mechanical Ventilator Weight: 216 lb 7.903 oz Body Mass Index (BMI) 29.3 Intake and Output for Last 24 Hours 07/31/18 08/01/18 08/02/18 23:59 23:59 23:59 Intake Total 1388 / 1388 Output Total 225 / 225 Balance 1163 / 1163 General: Ill Appearing HEENT: Atraumatic, Normocephalic, PERRL Oral: Moist Mucosa Neck: Supple, No JVD Lungs: Rhonchi Cardiovascular: Regular Rhythm, Normal S1, Normal S2 Vascular: No Carotid Bruits Abdomen: Bowel Sounds Present, Soft, Non Tender Extremities: No edema 08/01/18 10:13: Sodium 129 L, Potassium 6.2 H*, Chloride 102, Carbon Dioxide 12.0 L, Anion Gap 15, BUN 104 H*, Creatinine 11.70 H*, Est GFR (MDRD) Af Amer 6 L, Est GFR (MDRD) Non-Af 5 L, BUN/Creatinine Ratio 8.9 L, Glucose 276 H, Calcium 9.1, Total Bilirubin 0.30, Troponin I < 0.015 08/01/18 10:13: Lactic Acid 2.2 H 08/01/18 10:13: WBC 20.2 H, RBC 4.59 L, Hgb 13.3, Hct 40.2, MCV 87.6, MCH 29.0, MCHC 33.1, RDW 15.4 H, RDW Differential 49.1 H, Plt Count 242, MPV 13.6 H, Immature Gran % (Auto) 0.700, Neut % (Auto) 63.9, Lymph % (Auto) 15.3 L, [place] % (Auto) 7.8, Eos % (Auto) 12.3 H, Baso % (Auto) 0.0, Absolute Neuts (auto) 12.9 H , Total Counted Not Reportable 08/01/18 11:04: VBG pH 7.07 L*, VBG pO2 37, VBG O2 Sat (Calc) 49 L, VBG O2 Content 11 L, VBG Base Excess -20 L 08/01/18 11:50: Potassium 6.6 H* 08/01/18 12:30: Urine Color Yellow, Urine Clarity Cloudy, Urine pH 5.0, Ur Specific [place] 1.020, Urine Protein 100 H, Urine Glucose (UA) 100 H, Urine Ketones Negative, Urine Occult Blood 25 H, Urine Nitrite Negative, Urine Bilir ubin Negative, Urine Urobilinogen Normal, Ur Leukocyte Esterase 500 H, Urine RBC 0 SEEN, Urine WBC >100 SEEN 08/01/18 14:30: Magnesium 1.7, Troponin I 0.017 08/01/18 16:56: pH 7.26 L, Bicarbonate Actual 17.1 L, POC Total CO2 18, Base Excess -10 L, O2 Saturation 95, ABG pCO2 37.8, ABG pO2 85, Donnie Test POS 08/01/18 19:20: Troponin I 3.250 H* 08/01/18 22:38: Magnesium 1.3 L, Troponin I 5.540 H* 08/01/18 22:38: PT 13.7, INR 1.1, APTT 33.2 08/01/18 22:50: WBC 12.3 H, RBC 3.63 L, Hgb 10.2 L, Hct 30.9 L, MCV 85.1, MCH 28.1, MCHC 33.0, RDW 15.0 H, RDW Differential 47.1 H, Plt Count 194, MPV 12.6 H, Immature Gran % (Auto) 0.600, Neut % (Auto) 61.8, Lymph % (Auto) 15.8 L, [place] % (Auto) 10.7 H, Eos % (Auto) 10.9 H, Baso % (Auto) 0.2, Absolute Neuts (auto) 7.6, Total Counted Not Reportable Rhythm: As noted above EKG: As noted above ECHO:?28?18: Left ventricle normal with an LVEF 65%; trivial TR; estimated RV systolic pressure 40 mmHg; decreased diastolic compliance Stress Test: 11-23-09: Pharmacologic stress nuclear imaging study: Abnormal myocardial perfusion scan with evidence of inferior ischemia Cardiac Cath: 11-27-09: [facility]: Left main coronary artery normal; LAD stented with minimal in-stent stenosis; LCx with a proximal hazy area; RCA considered nondominant with no significant stenosis; left ventricle considered to have preserved systolic function with an LVEF reported at 55 to 60% PCI: 04-19-2003: [facility]: LAD PTCA/stent and LCx PTCA/stent CXR: As noted above Carotid artery duplex study: 02-09-2010: No significant atherosclerotic plaque or stenosis noted in the internal carotid arteries bilaterally. Flow within the vertebral arteries is antegrade bilaterally Assessment/Plan 1. Acute non-ST segment elevation MD The patient is in the ICU undergoing evaluation care of the aforementioned multiple medical issues. He has been found to have abnormal cardiac enzymes compatible with an acute non-ST segment elevation MD. This may be a secondary type II event related to his underlying noncardiovascular condition with respect to his hypotension, metabolic acidosis, hyperkalemia, with acute on chronic renal insufficiency secondary to his sepsis syndrome. At the present time he will continue to be monitored. His cardiac enzymes will be followed. His cardiac rhythm and ECGs will be followed. A transthoracic echocardiogram can be requested to reassess his left ventricular wall motion and systolic function. In the interim he is being treated medically. This would include aspirin, antiplatelet therapy, anticoagulant therapy, and lipid-lowering therapy. Based upon his hypotension requiring IV vasopressor support he is not a candidate for agents such as nitrates or beta-blockers at this time. Also, based upon his acute noncardiovascular related issues including his acute on chronic renal insufficiency he is not an ideal candidate for further evaluat ion with diagnostic cardiac catheterization at this time would include concerns of underlying IV contrast related nephropathy superimposed upon his underlying acute on chronic renal insufficiency and the potential for prolonged or permanent hemodialysis superimposed upon his temporary dialysis. Thus at the present time he will continue conservative medical management. 2. CAD status post PCI He does have a history of underlying CAD and PCI as noted above. Again, at the present time, he is cardiac enzyme change may be a type II event secondary to supply demand mismatch secondary to his multiple noncardiovascular issues in progress. He will continue to be monitored. He will continue noninvasive evaluation. He will continue medical therapy and support. Again he is not an ideal candidate for further evaluation in the cardiac catheterization laboratory at this time. 3. Paroxysmal atrial fibrillation He has a history of underlying paroxysmal atrial fibrillation. He was evaluated in cardiovascular consultation for such in April 2017. At that time he did not receive anticoagulant therapy secondary to concerns of underlying gastrointestinal related bleeding process. 4. Nonsustained wide-complex tachycardia He had an episode of nonsustained wide-complex tachycardia. It may be compatible with nonsustained ventricular tachycardia. Based upon his ongoing noncardiac and cardiac issues he will continue to be followed and treated medically. This will include electrolyte support. This will also include antiarrhythmic therapy with IV amiodarone. 5. Hyperlipidemia He can continue lipid evaluation care as deemed appropriate. 6. Hypertension The present time he is hypotensive thought secondary to his sepsis syndrome. He is continuing IV volume support and IV vasopressor support. 7. Diabetes mellitus He will continue evaluation care per internal medicine. 8. Peripheral vascular disease He has a report of underlying peripheral vascular disease. The details are unknown at this time. He has been on Pletal. With respect to his cardiovascular condition his Pletal would be placed on hold as he will be receiving other antiplatelet therapy at this time. 9. 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 10. Hypotension Again he has hypotensive thought secondary to an underlying sepsis syndrome as supported by his elevated white count, elevated lactic acid level, superimposed upon his other clinical symptoms/objective markers. He is receiving IV fluids and IV vasopressor support. 11. Metabolic acidosis He is undergoing evaluation care per internal medicine for such. This is included medical therapy as well as mechanical intubation/ventilation. 12. Hyperkalemia He is undergone medical management and acute hemodialysis. 13. Acute on chronic renal insufficiency He does appear to have a history of chronic renal insufficiency. He has had waxing and waning levels. There is been some concern in the past that his acute episodes may be related to changes in his volume status. At the present time his creatinine level is markedly elevated. He is being treated with IV fluids. He has also undergone hemodialysis. 14. Sepsis He has been diagnosed with sepsis. Again this is based on his clinical scenario and objective markers. He has been receiving IV fluids and IV vasopressor support. 15. C. difficile colitis He has previously been diagnosed with C. difficile toxin. He has been treated medically. He is undergoing reevaluation at this time. In the meantime he is being treated medically with antibiotic therapy with vancomycin and Flagyl. Comment: The above was discussed with the [facility] staff and the [facility] ICU staff. This note was generated with [employer] software. It may contain incorrect words, spelling, and punctuation that were not noted in checking the note before signing.
--- NOTE | 2018-08-02 01:14 | ECHOCS_ITS ---
Reason For Study: CAD/ASHD Procedure This was a 2D Doppler, Color Flow transthoracic echocardiogram. The study was technically difficult. Contrast injection was performed. Exam performed portable in ICU/CCU. Left Ventricle Normal LV size. Mild concentric left ventricular hypertrophy. The estimated ejection fraction is 50 %. Stage 1 diastolic dysfunction. No regional wall motion abnormalities noted. Right Ventricle Normal RV size. Normal systolic function. Atria The left atrium is mildly enlarged. Normal right atrium. Mitral Valve Normal mitral valve. Tricuspid Valve Normal tricuspid valve. Unable to estimate RV systolic pressure due to inadequate jet, pulmonary artery pressure probably normal. Aortic Valve Trisinus/trileaflet aortic valve. Pulmonic Valve The pulmonic valve is not well visualized. Great Vessels Normal aortic root. The pulmonary artery is normal size. Normal inferior vena cava. Pericardium/Pleural No pericardial effusion. Medication Diluted definity 2ml given slow IV push to enhance endocardial definition. MMode/2D Measurements & Calculations LVIDd: 5.0 cm IVSd: 1.3 cm Ao root diam: 3.2 cm LVIDs: 3.1 cm LVPWd: 1.4 cm LA dimension: 4.2 cm FS: 37.8 % LAV(MOD-bp): 68.3 ml LVAd ap4: 32.5 cm2 SV(MOD-sp4): 58.6 ml LAV(MOD-bp) Indexed: 31.0 ml/m2 EDV(MOD-sp4): 110.8 ml LAV(MOD-sp2): 66.1 ml EDV(sp4-el): 114.4 ml LAV(MOD-sp4): 62.5 ml LVAs ap4: 21.5 cm2 ESV(MOD-sp4): 52.2 ml ESV(sp4-el): 54.0 ml EF(MOD-sp4): 52.9 % EF(sp4-el): 52.8 % SV(sp4-el): 60.5 ml LA A4 area: 23.2 cm2 RA A4 area: 17.4 cm2 Time Measurements MV dec time: 0.19 sec Doppler Measurements & Calculations MV E max jaun: 81.4 cm/sec Lat Peak E' Jaun: 9.7 cm/sec Med Peak E' Jaun: 7.2 cm/sec MV A max jaun: 103.3 cm/sec E/E' lat: 8.4 E/E' med: 11.3 MV E/A: 0.79 MV V2 max: 113.0 cm/sec MV P1/2t max jaun: 108.3 cm/sec Ao V2 max: 135.9 cm/sec MV max P.1 mmHg MV P1/2t: 98.7 msec Ao max P.4 mmHg MV V2 mean: 69.1 cm/sec Ao V2 mean: 85.9 cm/sec MV mean P.2 mmHg MV dec slope: 321.3 cm/sec2 Ao mean P.5 mmHg MV V2 VTI: 40.1 cm MVA(P1/2t): 2.2 cm2 Ao V2 VTI: 27.1 cm LV V1 max: 94.2 cm/sec PA V2 max: 82.4 cm/sec PI end-d jaun: 178.3 cm/sec LV V1 max P.5 mmHg LV V1 mean P.6 mmHg LV V1 mean: 58.0 cm/sec LV V1 VTI: 20.1 cm Interpretation Summary Normal LV size. The estimated ejection fraction is 50 %. The left atrium is mildly enlarged. Mild concentric left ventricular hypertrophy. Stage 1 diastolic dysfunction. Contrast injection was performed. Ordering Physician: Sanchez Astorga Performed By: Willy Webb RCS
--- NOTE | 2018-08-02 02:10 | RAD_ITS ---
HISTORY: OG PLACEMENT COMPARISON: None FINDINGS: XR Abdomen 1 View: Portable Single portable view of the lower chest and upper abdomen. The enteric tube lies with the tip below the GE junction in the region of the gastric cardia. The tube should be advanced. No bowel obstruction seen. RAD/Abdomen Single View (Portable) IMPRESSION: The enteric tube tip lies within the gastric fundus and should be advanced. No bowel obstruction seen. at 1876 Reported and signed by: Wilberto Hernandez MD Electronically Signed: Wilberto Hernandez, at 4:28 EDT Tel , Service support ,
[2018-08-02 04:46] LABS: Bedside Glucose 161 mg/dL (70-110)
--- NOTE | 2018-08-02 04:59 | RAD_ITS ---
HISTORY: OG PLACEMENT COMPARISON: 0217 hours FINDINGS: XR Abdomen 1 View: 0502 hrs. The enteric tube has been advanced and appears in good position. The more proximal side-port of the tube lies below the GE junction. No bowel obstruction. RAD/Abdomen Single View (Portable) IMPRESSION: The enteric tube has been advanced and appears in good position. No bowel obstruction. at 0540 Reported and signed by: Wilberto Hernandez MD Electronically Signed: Wilberto Hernandez, at 5:39 EDT Tel , Service support ,
[2018-08-02] MEDS: 0.9% Normal Saline 1,000 ML 150 ML IV ×3 (05:14→21:55)
[2018-08-02 05:53] LABS: Hematocrit 31.5 % (40-54); Hemoglobin 10.4 g/dl (13.0-16.5); Mean Corpuscular Hgb 28.3 pg (27.0-32.0); Mean Corpuscular Volume 85.6 fL (80-94); Mean Platelet Vol. 13.6 fl (6.2-12.0); Platelet Count 190 K/mm3 (150-450); RBC Distribution Width CV 14.6 % (11.6-14.6); Red Blood Count 3.68 M/mm3 (4.6-6.2); White Blood Count 12.6 K/mm3 (4.4-11.0)
[2018-08-02 06:00] LABS: Scan Indicated on CBC? Y/N NO
[2018-08-02 06:07] LABS: Partial Thromboplast Time 73.4 Seconds (24.1-36.2)
[2018-08-02 07:13] LABS: ALB/GLOB Ratio 0.7 RATIO (0.9-2.4); AST(SGOT) 34 U/L (15-37); Alanine Aminotransfer ALT/SGPT 24 U/L (16-61); Albumin, Serum 2.5 g/dL (3.2-5.0); Alkaline Phosphatase 148 U/L (45-117); Anion Gap 13 (5-15); BUN 50 mg/dL (7-18); BUN/Creat Ratio 9.1 RATIO (10-20); Calcium,Total 7.7 mg/dL (8.5-10.1); Chloride 102 mmol/L (98-107); Creatinine, Serum 5.47 mg/dL (0.70-1.30); EST Glomerular Filtration Rate 11 mL/min (>60); Est Glom Filt Rate - Afr Amer 14 mL/min (>60); Estimated Creatinine Clearance 15.17 ml/min; Globulin 3.6 g/dL (2.2-4.2); Glucose 219 mg/dL (74-106); Potassium 3.8 mmol/L (3.5-5.1); Protein, Total 6.1 g/dL (6.4-8.2); Sodium Level 138 mmol/L (136-145)
--- NOTE | 2018-08-02 07:28 | PCM.CON.CC ---
Problem List (1) Severe sepsis Status: Acute (2) Pseudomembranous enterocolitis Status: Acute (3) Acute renal failure superimposed on stage 3 chronic kidney disease Status: Chronic (4) Hyperkalemia, diminished renal excretion Status: Acute (5) Infectious encephalopathy Status: Acute (6) Hyperglycemia due to type 2 diabetes mellitus Status: Acute (7) Septic shock Status: Acute (8) NICK (acute kidney injury) Status: Acute (9) C. difficile colitis Status: Acute (10) Metabolic acidosis Status: Acute (11) NSTEMI (non-ST elevated myocardial infarction) Status: Acute (12) S/P PTCA (percutaneous transluminal coronary angioplasty) Status: Chronic (13) Colon cancer Status: Chronic Comment: had surgery with no chemo or radiation at [facility] fall (14) Status post colon resection Status: Chronic Comment: subtotal for colon CA in the fall at [facility] (15) Anemia of chronic renal failure Status: Chronic Qualifiers: Chronic kidney disease stage: stage 4 (severe) Qualified Code(s): N18.4 - Chronic kidney disease, stage 4 (severe); D63.1 - Anemia in chronic kidney disease (16) Radiculopathy affecting upper extremity Status: Chronic (17) Increased PTH level Status: Chronic Comment: secondary to CRF stage4 (18) Paroxysmal atrial fibrillation Status: Chronic (19) Noncompliance with CPAP treatment Status: Chronic (20) LADARIUS (obstructive sleep apnea) Status: Chronic (21) Gout Status: Chronic (22) Hx of CABG Status: Chronic Comment: x3 2004 (23) Diabetes mellitus type 2 in obese Status: Chronic Reason for Consult Date of Consultation: 08/02/18 Reason for Consultation: Septic shock/respiratory failure History of Present Illness: The patient is a 62 year old M, with past medical history listed below, who presented to [facility] on 08/01/2018 secondary to progressive weakness, lightheadedness, back pain and shortness of breath. Patient is currently intubated and there are no family at the bedside, so most of the history was obtained via the medical record. Patient reportedly was dropped off by his sister despite being and had reported that his would not be coming in. On presentation to the ER, patient was noted to be hypotensive, tachycardic and tachypneic. Patient's labs showed significant increase in potassium to 6.2, BUN to 104 and creatinine 211.7, which was significantly elevated over labs 3 days previous. Patient reportedly had been treated for C. difficile as an outpatient. EKG did show some arrhythmias and given respiratory distress, patient was intubated. Patient had a right subclavian placed secondary to hypotension, but appeared to respond to the 30 cc/kg bolus with Levophed. After being transferred to the intensive care unit, patient did have his right subclavian central line replaced secondary to malposition. Patient also had a hemodialysis line placed by Dr. Ku. Patient became progressively intensive while on hemodialysis and had to be placed on pressor therapy. Throughout the evening, patient also had an elevation in troponin and was initiated on heparin and amiodarone drips. Patient appeared to have improvement in his mottling. This morning, patient is slightly bradycardic on Precedex therapy. Patient is also receiving Levophed at 7.5, heparin and amiodarone drips. Patient does shake his head to questions and denies any pain at this time. No nausea or vomiting has been reported. Unable to obtain a full review of systems. Past Medical History Past Medical History (Chronic Problems): Chronic Problems (Last Reviewed 08/01/18 @ 13:11 by Jose J Tucker DO) Acute renal failure superimposed on stage 3 chronic kidney disease (Chronic) S/P PTCA (percutaneous transluminal coronary angioplasty) (Chronic) HLD (hyperlipidemia) (Chronic) Clostridium difficile colitis (Chronic) Chronic hypoxemic respiratory failure (Chronic) 2-3 LPM chronically Colon cancer (Chronic) had surgery with no chemo or radiation at [facility] fall Status post colon resection (Chronic) subtotal for colon CA in the fall at [facility] Hemorrhoids (Chronic) CKD (chronic kidney disease) stage 4, GFR 15-29 ml/min (Chronic) Nicotine dependence, cigarettes, in remission (Chronic) Stage 3 severe COPD by GOLD classification (Chronic) FEV1 37% predicted Heme + stool (Chronic) Anemia of chronic renal failure (Chronic) H/O pneumonectomy (Chronic) Right LL lobectomy due to benign tumor Peripheral vascular disease (Chronic) Radiculopathy affecting upper extremity (Chronic) Iron deficiency anemia (Chronic) Increased PTH level (Chronic) secondary to CRF stage4 Low vitamin D level (Chronic) Paroxysmal atrial fibrillation (Chronic) Nocturnal hypoxia (Chronic) Noncompliance with CPAP treatment (Chronic) LADARIUS (obstructive sleep apnea) (Chronic) Gout (Chronic) History of tobacco abuse (Chronic) quit in April 2017 Hx of CABG (Chronic) x3 2004 Coronary artery disease (Chronic) has had 3 stents.....the last stent he thinks in 2008 Hypertension (Chronic) Diabetes mellitus type 2 in obese (Chronic) Medical History: Medical History (Last Reviewed 08/01/18 @ 13:11 by Jose J Tucker DO) Nicotine dependence, cigarettes, in remission (Chronic) F17.211 Heme + stool (Chronic) R19.5 Acute renal failure superimposed on stage 4 chronic kidney disease (Acute) N17.9, N18.4 Radiculopathy affecting upper extremity (Chronic) M54.10 Iron deficiency anemia (Chronic) D50.9 Increased PTH level (Chronic) E34.9 secondary to CRF stage4 Metabolic acidosis (Acute) E87.2 Low vitamin D level (Chronic) E55.9 Paroxysmal atrial fibrillation (Chronic) I48.0 Nocturnal hypoxia (Chronic) G47.34 Noncompliance with CPAP treatment (Chronic) Z91.14 LADARIUS (obstructive sleep apnea) (Chronic) G47.33 Gout (Chronic) M10.9 History of tobacco abuse (Chronic) Z87.891 quit in April 2017 Coronary artery disease (Chronic) I25.10 has had 3 stents.....the last stent he thinks in 2008 Hypertension (Chronic) I10 Diabetes mellitus type 2 in obese (Chronic) E11.69, E66.9 Colon cancer C18.9 Acute exacerbation of chronic obstructive pulmonary disease (COPD) (Resolved) J44.1 Acute respiratory failure with hypoxemia (Resolved) J96.01 Influenza B (Resolved) J10.1 Lower GI bleed (Resolved) K92.2 Severe sepsis (Resolved) A41.9, R65.20 Streptococcal pneumonia (Resolved) J15.4 Urinary retention due to benign prostatic hyperplasia (Resolved) N40.1, R33.8 NSAID long-term use (Inactive) Z79.1 Non-STEMI (non-ST elevated myocardial infarction) (Inactive) I21.4 Allergies No Known Allergies Allergy (Verified 08/01/18 09:50) Home Medications: Ambulatory Orders Medication Instructions Recorded Aspirin 81 mg PO DAILY 05/14/17 Nitroglycerin (INPATIENT USE) 0.4 mg SUBLINGUAL Q5M PRN 05/14/17 [Nitrostat] Oxycodone [Oxyir] 5 mg PO BID PRN PRN 05/14/17 Simvastatin 80 mg PO QHS 05/14/17 Oxygen, Home [Home Oxygen] 2 - 3 lpm NASAL UD #1 unit 05/18/17 Albuterol Aerosols [Ventolin 2.5 mg INHALATION Q4H PRN PRN 09/15/17 Aerosols] Allopurinol [Zyloprim] 300 mg PO DAILY 09/15/17 Cilostazol 50 mg PO BID 09/15/17 Colchicine 0.6 mg PO TID PRN 09/15/17 Ergocalciferol [Vitamin D] 50,000 unit PO Q7D 09/15/17 Finasteride [Proscar] 5 mg PO DAILY 09/15/17 Isosorbide Mononitrate [Imdur] 30 mg PO DAILY 09/15/17 Metoprolol(XL)Succ [Toprol Xl 50 mg PO DAILY 09/15/17 (Beta Vanesa)] Nebulizer [Aeroneb Go Nebulizer] 1 ea MC 4X/DAY 09/15/17 Pantoprazole Sodium [Protonix] 40 mg PO DAILY 09/15/17 Tamsulosin HCl [Flomax] 0.4 mg PO DAILY@1730 09/15/17 hydrALAZINE [Apresoline] 25 mg PO TID 09/15/17 umeclidinium 62.5 mcg/actuation 1 inh INHALATION QDAY #30 ea 04/22/18 blister powder for inhalation Albuterol Inhaler [Ventolin Hfa] 1 - 2 puff INHALATION Q4H PRN PRN 05/12/18 Diazepam [Valium] 5 mg PO DAILY PRN 05/12/18 Insulin Aspart [Novolog Flexpen] 5 units SC TIDCM #0 05/16/18 Insulin Degludec [Tresiba 20 unit SC QHS #0 05/16/18 Flextouch U-100] Sodium Bicarbonate 650 mg PO TID #90 tablet 06/03/18 Vancomcyin 125mg/5mL PO Liquid 125 mg PO Q6 #28 po.syringe 06/03/18 Surgical History: Surgical History (Last Reviewed 08/01/18 @ 13:11 by Jose J Tucker DO) Hx of CABG (Chronic) Z95.1 x3 2003 H/O colectomy Z90.49 3/4 of colon, 12/2017, Dr. Alvarado with [facility] S/P removal of lung Z90.2 3/4 of right lung was removed by Dr. Todd in [facility] 11/2009 Surgical History: angioplasty - stent x2 2003, - - rt lung thoracotomy, lobectomy 2009 for benign tumor Lives: Spouse/ Significant Other Smoking Status: Current some day smoker Alcohol: None Drugs: None - *Family History Maternal Family History: Family History (Last Reviewed 08/01/18 @ 13:11 by Jose J Tucker DO) Father Leukemia Mother COPD (chronic obstructive pulmonary disease) History Items: COPD Paternal Family History: Family History (Last Reviewed 08/01/18 @ 13:11 by Jose J Tucker DO) Father Leukemia Mother COPD (chronic obstructive pulmonary disease) History Items: Cancer - leukemia, Hypertension Review of Systems Unable to obtain accurate/complete ROS d/t: Intubation and sedation Patient Problems: Active and Suspected Problems (Last Reviewed 08/01/18 @ 13:11 by Jose J Tucker DO) Hypotension, unspecified (Acute) Severe sepsis (Acute) Pseudomembranous enterocolitis (Acute) Hyperkalemia, diminished renal excretion (Acute) Cholelithiasis (Acute) Infectious encephalopathy (Acute) Uremia of renal origin (Acute) Hyperglycemia due to type 2 diabetes mellitus (Acute) Septic shock (Acute) NICK (acute kidney injury) (Acute) C. difficile colitis (Acute) Hyperkalemia (Acute) Metabolic acidosis (Acute) Hyponatremia (Acute) NSTEMI (non-ST elevated myocardial infarction) (Acute) Objective: All imaging was personally reviewed. OG is in appropriate position. Endotracheal tube is in appropriate position. Patient did have a questionable right lower lobe infiltrate initially. - Physical Exam General: - - Intubated and sedated. Appears stated age. Good ventilator synchrony. HEENT: Atraumatic, PERRLA, EOMI, Normocephalic, - - No scleral icterus or injection noted. Oral: Moist Mucosa, No Gingival or Mucosal Lesions/ Ulcerations Neck: Supple, No Nodes, Trachea Midline, JVD, Right Lungs: No rhonchi, No rales, Diminished, Wheezes - And exhalation, right greater than left, - - Symmetric expansion. Cardiovascular: Normal S1, Normal S2, No murmurs, Bradycardic, No rub noted, No Gallop Abdomen: Bowel Sounds Present, Soft, Non Tender, Distended - Slightly Extremities: No clubbing, No cyanosis, No edema, Capillary Refill Less than 3 Seconds Skin: No rashes, No breakdown Musculoskeletal: No Tenderness to Palpation of Joints or Extremities Lymphatic: No Cervical, Supraclavicular, or Inguinal Adenopathy Neurological: Cranial nerves II-XII grossly intact, Neuro grossly intact Psych/Mental Status: Appropriate, Flat Affect Vital Signs Temp Pulse Resp BP Pulse Ox 37.2 C 60 14 104/57 L 100 08/02/18 06:00 08/02/18 06:00 08/02/18 06:00 08/02/18 06:00 08/02/18 06:00 Oxygen Flow Rate (L/min) 2 Oxygen Delivery Method Mechanical Ventilator Weight: 99.4 kg Body Mass Index (BMI) 29.3 Intake and Output for Last 24 Hours 07/31/18 08/01/18 08/02/18 23:59 23:59 23:59 Intake Total 1388 / 1388 2265.9 / 2265.9 Output Total 225 / 225 350 / 350 Balance 1163 / 1163 1915.9 / 1915.9 Laboratory Tests Past 24 Hrs 08/01/18 08/01/18 08/01/18 10:13 10:13 10:13 WBC 20.2 H RBC 4.59 L Hgb 13.3 Hct 40.2 MCV 87.6 MCH 29.0 MCHC 33.1 RDW 15.4 H RDW Differential 49.1 H Plt Count 242 MPV 13.6 H Immature Gran % (Auto) 0.700 Neut % (Auto) 63.9 Lymph % (Auto) 15.3 L [place] % (Auto) 7.8 Eos % (Auto) 12.3 H Baso % (Auto) 0.0 Absolute Neuts (auto) 12.9 H Absolute Lymphs (auto) 3.08 Total Counted Not Reportable Plt Morphology Comment LARGE PT INR APTT Specimen Type Sample Site pH Bicarbonate Actual POC Total CO2 Base Excess O2 Saturation O2 % ABG pCO2 ABG pO2 Donnie Test VBG pH VBG pO2 VBG O2 Sat (Calc) VBG O2 Content VBG Base Excess POC Mix VBG pCO2 Pt Tmp Respiration Rate O2 Delivery Device Liter Flow Vent Mode Tidal Volume POC PEEP Blood Gas Notified Whom Blood Gas Notified Time Sodium 129 L Potassium 6.2 H* Chloride 102 Carbon Dioxide 12.0 L Anion Gap 15 BUN 104 H* Creatinine 11.70 H* Estim Creat Clear Calc 7.09 Est GFR (MDRD) Af Amer 6 L Est GFR (MDRD) Non-Af 5 L BUN/Creatinine Ratio 8.9 L Glucose 276 H Lactic Acid 2.2 H Calcium 9.1 Magnesium Total Bilirubin 0.30 AST 12 L ALT 20 Alkaline Phosphatase 191 H Troponin I < 0.015 Total Protein 8.5 H Albumin 3.5 Globulin 5.0 H Albumin/Globulin Ratio 0.7 L Urine Color Urine Clarity Urine pH Ur Specific R[place]ells Urine Protein Urine Glucose (UA) Urine Ketones Urine Occult Blood Urine Nitrite Urine Bilirubin Urine Urobilinogen Ur Leukocyte Esterase Urine RBC Urine WBC Ur Squamous Epith Cells Urine Bacteria Urine Mucus Random Vancomycin Hep Bs Antigen Hep B Core Total Ab 08/01/18 08/01/18 08/01/18 11:04 11:50 12:30 WBC RBC Hgb Hct MCV MCH MCHC RDW RDW Differential Plt Count MPV Immature Gran % (Auto) Neut % (Auto) Lymph % (Auto) [place] % (Auto) Eos % (Auto) Baso % (Auto) Absolute Neuts (auto) Absolute Lymphs (auto) Total Counted Plt Morphology Comment PT INR APTT Specimen Type SHERI Sample Site OTHER pH Bicarbonate Actual POC Total CO2 Base Excess O2 Saturation O2 % ABG pCO2 ABG pO2 Donnie Test VBG pH 7.07 L* VBG pO2 37 VBG O2 Sat (Calc) 49 L VBG O2 Content 11 L VBG Base Excess -20 L POC Mix VBG pCO2 Pt Tmp 35.8 L Respiration Rate O2 Delivery Device Nasal Can Liter Flow 2.0 Vent Mode Tidal Volume POC PEEP Blood Gas Notified Whom ED Blood Gas Notified Time 1102 Sodium Potassium 6.6 H* Chloride Carbon Dioxide Anion Gap BUN Creatinine Estim Creat Clear Calc Est GFR (MDRD) Af Amer Est GFR (MDRD) Non-Af BUN/Creatinine Ratio Glucose Lactic Acid Calcium Magnesium Total Bilirubin AST ALT Alkaline Phosphatase Troponin I Total Protein Albumin Globulin Albumin/Globulin Ratio Urine Color Yellow Urine Clarity Cloudy Urine pH 5.0 Ur Specific [place] 1.020 Urine Protein 100 H Urine Glucose (UA) 100 H Urine Ketones Negative Urine Occult Blood 25 H Urine Nitrite Negative Urine Bilirubin Negative Urine Urobilinogen Normal Ur Leukocyte Esterase 500 H Urine RBC 0 SEEN Urine WBC >100 SEEN Ur Squamous Epith Cells 0 SEEN Urine Bacteria 0 SEEN Urine Mucus 0 SEEN Random Vancomycin Hep Bs Antigen Hep B Core Total Ab 08/01/18 08/01/18 08/01/18 14:30 14:30 16:56 WBC RBC Hgb Hct MCV MCH MCHC RDW RDW Differential Plt Count MPV Immature Gran % (Auto) Neut % (Auto) Lymph % (Auto) [place] % (Auto) Eos % (Auto) Baso % (Auto) Absolute Neuts (auto) Absolute Lymphs (auto) Total Counted Plt Morphology Comment PT INR APTT Specimen Type ART Sample Site R Radial pH 7.26 L Bicarbonate Actual 17.1 L POC Total CO2 18 Base Excess -10 L O2 Saturation 95 O2 % 35 ABG pCO2 37.8 ABG pO2 85 Donnie Test POS VBG pH VBG pO2 VBG O2 Sat (Calc) VBG O2 Content VBG Base Excess POC Mix VBG pCO2 Pt Tmp Respiration Rate 14 O2 Delivery Device Vent Liter Flow Vent Mode A-C Tidal Volume 500 POC PEEP 5 Blood Gas Notified Whom ICU Blood Gas Notified Time 1653 Sodium Potassium Chloride Carbon Dioxide Anion Gap BUN Creatinine Estim Creat Clear Calc Est GFR (MDRD) Af Amer Est GFR (MDRD) Non-Af BUN/Creatinine Ratio Glucose Lactic Acid Calcium Magnesium 1.7 Total Bilirubin AST ALT Alkaline Phosphatase Troponin I 0.017 Total Protein Albumin Globulin Albumin/Globulin Ratio Urine Color Urine Clarity Urine pH Ur Specific R[place] Urine Protein Urine Glucose (UA) Urine Ketones Urine Occult Blood Urine Nitrite Urine Bilirubin Urine Urobilinogen Ur Leukocyte Esterase Urine RBC Urine WBC Ur Squamous Epith Cells Urine Bacteria Urine Mucus Random Vancomycin Hep Bs Antigen Pending Hep B Core Total Ab Pending 08/01/18 08/01/18 08/01/18 19:20 19:20 22:38 WBC RBC Hgb Hct MCV MCH MCHC RDW RDW Differential Plt Count MPV Immature Gran % (Auto) Neut % (Auto) Lymph % (Auto) [place] % (Auto) Eos % (Auto) Baso % (Auto) Absolute Neuts (auto) Absolute Lymphs (auto) Total Counted Plt Morphology Comment PT INR APTT Specimen Type Sample Site pH Bicarbonate Actual POC Total CO2 Base Excess O2 Saturation O2 % ABG pCO2 ABG pO2 Donnie Test VBG pH VBG pO2 VBG O2 Sat (Calc) VBG O2 Content VBG Base Excess POC Mix VBG pCO2 Pt Tmp Respiration Rate O2 Delivery Device Liter Flow Vent Mode Tidal Volume POC PEEP Blood Gas Notified Whom Blood Gas Notified Time Sodium Potassium Chloride Carbon Dioxide Anion Gap BUN Creatinine Estim Creat Clear Calc Est GFR (MDRD) Af Amer Est GFR (MDRD) Non-Af BUN/Creatinine Ratio Glucose Lactic Acid Calcium Magnesium 1.3 L Total Bilirubin AST ALT Alkaline Phosphatase Troponin I 3.250 H* 5.540 H* Total Protein Albumin Globulin Albumin/Globulin Ratio Urine Color Urine Clarity Urine pH Ur Specific [place] Urine Protein Urine Glucose (UA) Urine Ketones Urine Occult Blood Urine Nitrite Urine Bilirubin Urine Urobilinogen Ur Leukocyte Esterase Urine RBC Urine WBC Ur Squamous Epith Cells Urine Bacteria Urine Mucus Random Vancomycin < 0.8 Hep Bs Antigen Hep B Core Total Ab 08/01/18 08/01/18 08/02/18 22:38 22:50 05:20 WBC 12.3 H 12.6 H RBC 3.63 L 3.68 L Hgb 10.2 L 10.4 L Hct 30.9 L 31.5 L MCV 85.1 85.6 MCH 28.1 28.3 MCHC 33.0 33.0 RDW 15.0 H 14.6 RDW Differential 47.1 H 44.0 H Plt Count 194 190 MPV 12.6 H 13.6 H Immature Gran % (Auto) 0.600 Neut % (Auto) 61.8 Lymph % (Auto) 15.8 L [place] % (Auto) 10.7 H Eos % (Auto) 10.9 H Baso % (Auto) 0.2 Absolute Neuts (auto) 7.6 Absolute Lymphs (auto) 1.94 Total Counted Not Reportable Plt Morphology Comment PT 13.7 INR 1.1 APTT 33.2 Specimen Type Sample Site pH Bicarbonate Actual POC Total CO2 Base Excess O2 Saturation O2 % ABG pCO2 ABG pO2 Donnie Test VBG pH VBG pO2 VBG O2 Sat (Calc) VBG O2 Content VBG Base Excess POC Mix VBG pCO2 Pt Tmp Respiration Rate O2 Delivery Device Liter Flow Vent Mode Tidal Volume POC PEEP Blood Gas Notified Whom Blood Gas Notified Time Sodium Potassium Chloride Carbon Dioxide Anion Gap BUN Creatinine Estim Creat Clear Calc Est GFR (MDRD) Af Amer Est GFR (MDRD) Non-Af BUN/Creatinine Ratio Glucose Lactic Acid Calcium Magnesium Total Bilirubin AST ALT Alkaline Phosphatase Troponin I Total Protein Albumin Globulin Albumin/Globulin Ratio Urine Color Urine Clarity Urine pH Ur Specific [place] Urine Protein Urine Glucose (UA) Urine Ketones Urine Occult Blood Urine Nitrite Urine Bilirubin Urine Urobilinogen Ur Leukocyte Esterase Urine RBC Urine WBC Ur Squamous Epith Cells Urine Bacteria Urine Mucus Random Vancomycin Hep Bs Antigen Hep B Core Total Ab 08/02/18 08/02/18 05:20 05:20 WBC RBC Hgb Hct MCV MCH MCHC RDW RDW Differential Plt Count MPV Immature Gran % (Auto) Neut % (Auto) Lymph % (Auto) [place] % (Auto) Eos % (Auto) Baso % (Auto) Absolute Neuts (auto) Absolute Lymphs (auto) Total Counted Plt Morphology Comment PT INR APTT 73.4 H Specimen Type Sample Site pH Bicarbonate Actual POC Total CO2 Base Excess O2 Saturation O2 % ABG pCO2 ABG pO2 Donnie Test VBG pH VBG pO2 VBG O2 Sat (Calc) VBG O2 Content VBG Base Excess POC Mix VBG pCO2 Pt Tmp Respiration Rate O2 Delivery Device Liter Flow Vent Mode Tidal Volume POC PEEP Blood Gas Notified Whom Blood Gas Notified Time Sodium 138 Potassium 3.8 Chloride 102 Carbon Dioxide 23.0 Anion Gap 13 BUN 50 H Creatinine 5.47 H Estim Creat Clear Calc 15.17 Est GFR (MDRD) Af Amer 14 L Est GFR (MDRD) Non-Af 11 L BUN/Creatinine Ratio 9.1 L Glucose 219 H Lactic Acid Calcium 7.7 L Magnesium Total Bilirubin 0.60 AST 34 ALT 24 Alkaline Phosphatase 148 H Troponin I Total Protein 6.1 L Albumin 2.5 L Globulin 3.6 Albumin/Globulin Ratio 0.7 L Urine Color Urine Clarity Urine pH Ur Specific [place] Urine Protein Urine Glucose (UA) Urine Ketones Urine Occult Blood Urine Nitrite Urine Bilirubin Urine Urobilinogen Ur Leukocyte Esterase Urine RBC Urine WBC Ur Squamous Epith Cells Urine Bacteria Urine Mucus Random Vancomycin Hep Bs Antigen Hep B Core Total Ab POC Glucose 08/02/18 08/01/18 08/01/18 00:16 22:40 19:27 POC Glucose 161 H 151 H 179 H Clinical Impression(s) from Imaging Studies Chest X-Ray 08/01/18 10:02 IMPRESSION: 1. Right subclavian central venous catheter extends into the right jugular vein/neck. Repositioning recommended. 2. Satisfactory position of endotracheal tube. 3. Bullous and fibrotic changes of the right upper lung field, similar. 4. No airspace consolidation or pneumothorax. Electronically Signed: Yves Lamb MD at 11:45 EDT , Service support , Abdomen Ultrasound 08/01/18 10:31 IMPRESSION: 1. Solitary gallstone without sonographic evidence of acute cholecystitis. 2. Mild hepatomegaly. Electronically Signed: Yves Lamb MD at 12:15 EDT , Service support , KUB X-Ray 08/01/18 14:20 IMPRESSION: Enteric tube extends to the gastric fundus. Electronically Signed: Yves Lamb MD at 15:05 EDT , Service support , Chest X-Ray 08/01/18 14:28 IMPRESSION: Satisfactory position of right subclavian central venous catheter and jugular dialysis catheter Electronically Signed: Yves Lamb MD at 15:04 EDT , Service support , KUB X-Ray 08/02/18 02:10 IMPRESSION: The enteric tube tip lies within the gastric fundus and should be advanced. No bowel obstruction seen. at 0429 Reported and signed by: Wilberto Hernandez MD Electronically Signed: Wilberto Hernandez, at 4:28 EDT Tel , Service support , KUB X-Ray 08/02/18 04:59 IMPRESSION: The enteric tube has been advanced and appears in good position. No bowel obstruction. at 0540 Reported and signed by: Wilberto Hernandez MD Electronically Signed: Wilberto Hernandez, at 5:39 EDT Tel , Service support , Assessment/Plan Active and Suspected Problems (Last Reviewed 08/01/18 @ 13:11 by Jose J Tucker DO) Hypotension, unspecified (Acute) Severe sepsis (Acute) Pseudomembranous enterocolitis (Acute) Hyperkalemia, diminished renal excretion (Acute) Cholelithiasis (Acute) Infectious encephalopathy (Acute) Uremia of renal origin (Acute) Hyperglycemia due to type 2 diabetes mellitus (Acute) Septic shock (Acute) NICK (acute kidney injury) (Acute) C. difficile colitis (Acute) Hyperkalemia (Acute) Metabolic acidosis (Acute) Hyponatremia (Acute) NSTEMI (non-ST elevated myocardial infarction) (Acute) RECOMMENDATIONS: 1. Hemodialysis per nephrology 2. Await cultures, continue C. difficile therapy 3. Broaden antibiotic spectrum 4. Obtain MRSA swab 5. Continue amiodarone and heparin per cardiology IMPRESSIONS: 1. Septic shock secondary to possible C. difficile versus pneumonia Patient with hypotension on presentation while being treated for C. difficile. Patient did have a possible right lower lobe infiltrate on chest x-ray, but is currently only receiving therapy for C. difficile colitis. Will expand antibiotic coverage. Wean Levophed as tolerated. Likely not remove any fluids with hemodialysis for now. 2. Acute hypoxic respiratory failure Unclear etiology at this time. Patient did have significant metabolic acidosis on presentation and this may be secondary to respiratory muscle fatigue. Patient did have a questionable right lower lobe infiltrate on original chest x-ray. Will broaden antibiotic spectrum to cover possible healthcare associated pneumonia. Patient does have improvement in respiratory status following hemodialysis. Spontaneous breathing and awakening trials per protocol. Patient appears to be tolerating Precedex well. 3. Acute on chronic kidney disease stage IV Patient with significant elevation in BUN and creatinine over the course of 3 days. Unclear if this is prerenal secondary to dehydration with C. difficile versus hypotension related to septic shock. Patient did respond well to hemodialysis. Nephrology is following. Defer additional hemodialysis to nephrology. Patient is still making urine. Would suggest no volume removal until hemodynamic status improves. 4. Non-ST elevation NM Patient does have an extensive cardiac history. Patient has had an elevation in troponin to 5.5. Patient has been initiated on heparin. Some of the arrhythmia may be secondary to electrolyte disturbances. Cardiology is following. Defer to cardiology on amiodarone drip. Patient may require a repeat heart catheterization in the future, but renal function precludes use of contrast at this time. 5. Severe metabolic acidosis/hyperkalemia/hyponatremia Likely secondary to #3. Patient has received hemodialysis. Defer to nephrology on electrolyte replacement in the interim. Patient did receive Kayexalate, so development of hypokalemia will need to be monitored. 6. Secondary hyperparathyroidism/history of colon cancer/LADARIUS with noncompliance/paroxysmal A. fib/radiculopathy Complicates care, management, recovery and prognosis. Continue to monitor. TIME: 45 minutes of critical care time spent addressing patient's septic shock, respiratory failure, renal failure, review of all data and collaboration with care team (6:30 AM to 8 AM) Code Visit [id number]: [id number] Critical care first hour
--- NOTE | 2018-08-02 07:35 | CON.PCM_ITS ---
Problem List (1) Severe sepsis Status: Acute (2) Pseudomembranous enterocolitis Status: Acute (3) Acute renal failure superimposed on stage 3 chronic kidney disease Status: Chronic (4) Hyperkalemia, diminished renal excretion Status: Acute (5) Infectious encephalopathy Status: Acute (6) Hyperglycemia due to type 2 diabetes mellitus Status: Acute (7) Septic shock Status: Acute (8) NICK (acute kidney injury) Status: Acute (9) C. difficile colitis Status: Acute (10) Metabolic acidosis Status: Acute (11) NSTEMI (non-ST elevated myocardial infarction) Status: Acute (12) S/P PTCA (percutaneous transluminal coronary angioplasty) Status: Chronic (13) Colon cancer Status: Chronic Comment: had surgery with no chemo or radiation at [facility] fall (14) Status post colon resection Status: Chronic Comment: subtotal for colon CA in the fall at [facility] (15) Anemia of chronic renal failure Status: Chronic Qualifiers: Chronic kidney disease stage: stage 4 (severe) Qualified Code(s): N18.4 - Chronic kidney disease, stage 4 (severe); D63.1 - Anemia in chronic kidney disease (16) Radiculopathy affecting upper extremity Status: Chronic (17) Increased PTH level Status: Chronic Comment: secondary to CRF stage4 (18) Paroxysmal atrial fibrillation Status: Chronic (19) Noncompliance with CPAP treatment Status: Chronic (20) LADARIUS (obstructive sleep apnea) Status: Chronic (21) Gout Status: Chronic (22) Hx of CABG Status: Chronic Comment: x3 2004 (23) Diabetes mellitus type 2 in obese Status: Chronic Reason for Consult Date of Consultation: 08/02/18 Reason for Consultation: Septic shock/respiratory failure History of Present Illness: The patient is a 62 year old M, with past medical history listed below, who presented to [facility] on 08/01/2018 secondary to progressive weakness, lightheadedness, back pain and shortness of breath. Patient is currently intubated and there are no family at the bedside, so most of the history was obtained via the medical record. Patient reportedly was dropped off by his sister despite being and had reported that his would not be coming in. On presentation to the ER, patient was noted to be hypotensive, tachycardic and tachypneic. Patient's labs showed significant increase in potassium to 6.2, BUN to 104 and creatinine 211.7, which was significantly elevated over labs 3 days previous. Patient reportedly had been treated for C. difficile as an outpatient. EKG did show some arrhythmias and given respiratory distress, patient was intubated. Patient had a right subclavian placed secondary to hypotension, but appeared to respond to the 30 cc/kg bolus with Levophed. After being transferred to the intensive care unit, patient did have his right subclavian central line replaced secondary to malposition. Patient also had a hemodialysis line placed by Dr. Ku. Patient became progressively intensive while on hemodialysis and had to be placed on pressor therapy. Throughout the evening, patient also had an elevation in troponin and was initiated on heparin and amiodarone drips. Patient appeared to have improvement in his mottling. This morning, patient is slightly bradycardic on Precedex therapy. Patient is also receiving Levophed at 7.5, heparin and amiodarone drips. Patient does shake his head to questions and denies any pain at this time. No nausea or vomiting has been reported. Unable to obtain a full review of systems. Past Medical History Past Medical History (Chronic Problems): Chronic Problems (Last Reviewed 08/01/18 @ 13:11 by Jose J Tucker DO) Acute renal failure superimposed on stage 3 chronic kidney disease (Chronic) S/P PTCA (percutaneous transluminal coronary angioplasty) (Chronic) HLD (hyperlipidemia) (Chronic) Clostridium difficile colitis (Chronic) Chronic hypoxemic respiratory failure (Chronic) 2-3 LPM chronically Colon cancer (Chronic) had surgery with no chemo or radiation at [facility] fall Status post colon resection (Chronic) subtotal for colon CA in the fall at [facility] Hemorrhoids (Chronic) CKD (chronic kidney disease) stage 4, GFR 15-29 ml/min (Chronic) Nicotine dependence, cigarettes, in remission (Chronic) Stage 3 severe COPD by GOLD classification (Chronic) FEV1 37% predicted Heme + stool (Chronic) Anemia of chronic renal failure (Chronic) H/O pneumonectomy (Chronic) Right LL lobectomy due to benign tumor Peripheral vascular disease (Chronic) Radiculopathy affecting upper extremity (Chronic) Iron deficiency anemia (Chronic) Increased PTH level (Chronic) secondary to CRF stage4 Low vitamin D level (Chronic) Paroxysmal atrial fibrillation (Chronic) Nocturnal hypoxia (Chronic) Noncompliance with CPAP treatment (Chronic) LADARIUS (obstructive sleep apnea) (Chronic) Gout (Chronic) History of tobacco abuse (Chronic) quit in April 2017 Hx of CABG (Chronic) x3 2004 Coronary artery disease (Chronic) has had 3 stents.....the last stent he thinks in 2008 Hypertension (Chronic) Diabetes mellitus type 2 in obese (Chronic) Medical History: Medical History (Last Reviewed 08/01/18 @ 13:11 by Jose J Tucker DO) Nicotine dependence, cigarettes, in remission (Chronic) F17.211 Heme + stool (Chronic) R19.5 Acute renal failure superimposed on stage 4 chronic kidney disease (Acute) N17. 9, N18.4 Radiculopathy affecting upper extremity (Chronic) M54.10 Iron deficiency anemia (Chronic) D50.9 Increased PTH level (Chronic) E34.9 secondary to CRF stage4 Metabolic acidosis (Acute) E87.2 Low vitamin D level (Chronic) E55.9 Paroxysmal atrial fibrillation (Chronic) I48.0 Nocturnal hypoxia (Chronic) G47.34 Noncompliance with CPAP treatment (Chronic) Z91.14 LADARIUS (obstructive sleep apnea) (Chronic) G47.33 Gout (Chronic) M10.9 History of tobacco abuse (Chronic) Z87.891 quit in April 2017 Coronary artery disease (Chronic) I25.10 has had 3 stents.....the last stent he thinks in 2008 Hypertension (Chronic) I10 Diabetes mellitus type 2 in obese (Chronic) E11.69, E66.9 Colon cancer C18.9 Acute exacerbation of chronic obstructive pulmonary disease (COPD) (Resolved) J44.1 Acute respiratory failure with hypoxemia (Resolved) J96.01 Influenza B (Resolved) J10.1 Lower GI bleed (Resolved) K92.2 Severe sepsis (Resolved) A41.9, R65.20 Streptococcal pneumonia (Resolved) J15.4 Urinary retention due to benign prostatic hyperplasia (Resolved) N40.1, R33.8 NSAID long-term use (Inactive) Z79.1 Non-STEMI (non-ST elevated myocardial infarction) (Inactive) I21.4 Allergies No Known Allergies Allergy (Verified 08/01/18 09:50) Home Medications: Ambulatory Orders Medication Instructions Recorded Aspirin 81 mg PO DAILY 05/14/17 Nitroglycerin (INPATIENT USE) 0.4 mg SUBLINGUAL Q5M PRN 05/14/17 [Nitrostat] Oxycodone [Oxyir] 5 mg PO BID PRN PRN 05/14/17 Simvastatin 80 mg PO QHS 05/14/17 Oxygen, Home [Home Oxygen] 2 - 3 lpm NASAL UD #1 unit 05/18/17 Albuterol Aerosols [Ventolin 2.5 mg INHALATION Q4H PRN PRN 09/15/17 Aerosols] Allopurinol [Zyloprim] 300 mg PO DAILY 09/15/17 Cilostazol 50 mg PO BID 09/15/17 Colchicine 0.6 mg PO TID PRN 09/15/17 Ergocalciferol [Vitamin D] 50,000 unit PO Q7D 09/15/17 Finasteride [Proscar] 5 mg PO DAILY 09/15/17 Isosorbide Mononitrate [Imdur] 30 mg PO DAILY 09/15/17 Metoprolol(XL)Succ [Toprol Xl 50 mg PO DAILY 09/15/17 (Beta Vanesa)] Nebulizer [Aeroneb Go Nebulizer] 1 ea MC 4X/DAY 09/15/17 Pantoprazole Sodium [Protonix] 40 mg PO DAILY 09/15/17 Tamsulosin HCl [Flomax] 0.4 mg PO DAILY@1730 09/15/17 hydrALAZINE [Apresoline] 25 mg PO TID 09/15/17 umeclidinium 62.5 mcg/actuation 1 inh INHALATION QDAY #30 ea 04/22/18 blister powder for inhalation Albuterol Inhaler [Ventolin Hfa] 1 - 2 puff INHALATION Q4H PRN PRN 05/12/18 Diazepam [Valium] 5 mg PO DAILY PRN 05/12/18 Insulin Aspart [Novolog Flexpen] 5 units SC TIDCM #0 05/16/18 Insulin Degludec [Tresiba 20 unit SC QHS #0 05/16/18 Flextouch U-100] Sodium Bicarbonate 650 mg PO TID #90 tablet 06/03/18 Vancomcyin 125mg/5mL PO Liquid 125 mg PO Q6 #28 po.syringe 06/03/18 Surgical History: Surgical History (Last Reviewed 08/01/18 @ 13:11 by Jose J Tucker DO) Hx of CABG (Chronic) Z95.1 x3 2003 H/O colectomy Z90.49 3/4 of colon, 12/2017, Dr. Alvarado with [facility] S/P removal of lung Z90.2 3/4 of right lung was removed by Dr. Todd in [facility] 11/2009 Surgical History: angioplasty - stent x2 2003, - - rt lung thoracotomy, lobectomy 2009 for benign tumor Lives: Spouse/ Significant Other Smoking Status: Current some day smoker Alcohol: None Drugs: None - *Family History Maternal Family History: Family History (Last Reviewed 08/01/18 @ 13:11 by Jose J Tucker DO) Father Leukemia Mother COPD (chronic obstructive pulmonary disease) History Items: COPD Paternal Family History: Family History (Last Reviewed 08/01/18 @ 13:11 by Jose J Tucker DO) Father Leukemia Mother COPD (chronic obstructive pulmonary disease) History Items: Cancer - leukemia, Hypertension Review of Systems Unable to obtain accurate/complete ROS d/t: Intubation and sedation Patient Problems: Active and Suspected Problems (Last Reviewed 08/01/18 @ 13:11 by Jose J Tucker DO) Hypotension, unspecified (Acute) Severe sepsis (Acute) Pseudomembranous enterocolitis (Acute) Hyperkalemia, diminished renal excretion (Acute) Cholelithiasis (Acute) Infectious encephalopathy (Acute) Uremia of renal origin (Acute) Hyperglycemia due to type 2 diabetes mellitus (Acute) Septic shock (Acute) NICK (acute kidney injury) (Acute) C. difficile colitis (Acute) Hyperkalemia (Acute) Metabolic acidosis (Acute) Hyponatremia (Acute) NSTEMI (non-ST elevated myocardial infarction) (Acute) Objective: All imaging was personally reviewed. OG is in appropriate position. Endotracheal tube is in appropriate position. Patient did have a questionable right lower lobe infiltrate initially. - Physical Exam General: - - Intubated and sedated. Appears stated age. Good ventilator synchrony. HEENT: Atraumatic, PERRLA, EOMI, Normocephalic, - - No scleral icterus or injection noted. Oral: Moist Mucosa, No Gingival or Mucosal Lesions/ Ulcerations Neck: Supple, No Nodes, Trachea Midline, JVD, Right Lungs: No rhonchi, No rales, Diminished, Wheezes - And exhalation, right greater than left, - - Symmetric expansion. Cardiovascular: Normal S1, Normal S2, No murmurs, Bradycardic, No rub noted, No Gallop Abdomen: Bowel Sounds Present, Soft, Non Tender, Distended - Slightly Extremities: No clubbing, No cyanosis, No edema, Capillary Refill Less than 3 Seconds Skin: No rashes, No breakdown Musculoskeletal: No Tenderness to Palpation of Joints or Extremities Lymphatic: No Cervical, Supraclavicular, or Inguinal Adenopathy Neurological: Cranial nerves II-XII grossly intact, Neuro grossly intact Psych/Mental Status: Appropriate, Flat Affect Vital Signs Temp Pulse Resp BP Pulse Ox 37.2 C 60 14 104/57 L 100 08/02/18 06:00 08/02/18 06:00 08/02/18 06:00 08/02/18 06:00 08/02/18 06:00 Oxygen Flow Rate (L/min) 2 Oxygen Delivery Method Mechanical Ventilator Weight: 99.4 kg Body Mass Index (BMI) 29.3 Intake and Output for Last 24 Hours 07/31/18 08/01/18 08/02/18 23:59 23:59 23:59 Intake Total 1388 / 1388 2265.9 / 2265.9 Output Total 225 / 225 350 / 350 Balance 1163 / 1163 1915.9 / 1915.9 Laboratory Tests Past 24 Hrs 08/01/18 08/01/18 08/01/18 10:13 10:13 10:13 WBC 20.2 H RBC 4.59 L Hgb 13.3 Hct 40.2 MCV 87.6 MCH 29.0 MCHC 33.1 RDW 15.4 H RDW Differential 49.1 H Plt Count 242 MPV 13.6 H Immature Gran % (Auto) 0.700 Neut % (Auto) 63.9 Lymph % (Auto) 15.3 L Vermilion % (Auto) 7.8 Eos % (Auto) 12.3 H Baso % (Auto) 0.0 Absolute Neuts (auto) 12.9 H Absolute Lymphs (auto) 3.08 Total Counted Not Reportable Plt Morphology Comment LARGE PT INR APTT Specimen Type Sample Site pH Bicarbonate Actual POC Total CO2 Base Excess O2 Saturation O2 % ABG pCO2 ABG pO2 Donnie Test VBG pH VBG pO2 VBG O2 Sat (Calc) VBG O2 Content VBG Base Excess POC Mix VBG pCO2 Pt Tmp Respiration Rate O2 Delivery Device Liter Flow Vent Mode Tidal Volume POC PEEP Blood Gas Notified Whom Blood Gas Notified Time Sodium 129 L Potassium 6.2 H* Chloride 102 Carbon Dioxide 12.0 L Anion Gap 15 BUN 104 H* Creatinine 11.70 H* Estim Creat Clear Calc 7.09 Est GFR (MDRD) Af Amer 6 L Est GFR (MDRD) Non-Af 5 L BUN/Creatinine Ratio 8.9 L Glucose 276 H Lactic Acid 2.2 H Calcium 9.1 Magnesium Total Bilirubin 0.30 AST 12 L ALT 20 Alkaline Phosphatase 191 H Troponin I < 0.015 Total Protein 8.5 H Albumin 3.5 Globulin 5.0 H Albumin/Globulin Ratio 0.7 L Urine Color Urine Clarity Urine pH Ur Specific Grover Urine Protein Urine Glucose (UA) Urine Ketones Urine Occult Blood Urine Nitrite Urine Bilirubin Urine Urobilinogen Ur Leukocyte Esterase Urine RBC Urine WBC Ur Squamous Epith Cells Urine Bacteria Urine Mucus Random Vancomycin Hep Bs Antigen Hep B Core Total Ab 08/01/18 08/01/18 08/01/18 11:04 11:50 12:30 WBC RBC Hgb Hct MCV MCH MCHC RDW RDW Differential Plt Count MPV Immature Gran % (Auto) Neut % (Auto) Lymph % (Auto) Vermilion % (Auto) Eos % (Auto) Baso % (Auto) Absolute Neuts (auto) Absolute Lymphs (auto) Total Counted Plt Morphology Comment PT INR APTT Specimen Type SHERI Sample Site OTHER pH Bicarbonate Actual POC Total CO2 Base Excess O2 Saturation O2 % ABG pCO2 ABG pO2 Donnie Test VBG pH 7.07 L* VBG pO2 37 VBG O2 Sat (Calc) 49 L VBG O2 Content 11 L VBG Base Excess -20 L POC Mix VBG pCO2 Pt Tmp 35.8 L Respiration Rate O2 Delivery Device Nasal Can Liter Flow 2.0 Vent Mode Tidal Volume POC PEEP Blood Gas Notified Whom ED Blood Gas Notified Time 1102 Sodium Potassium 6.6 H* Chloride Carbon Dioxide Anion Gap BUN Creatinine Estim Creat Clear Calc Est GFR (MDRD) Af Amer Est GFR (MDRD) Non-Af BUN/Creatinine Ratio Glucose Lactic Acid Calcium Magnesium Total Bilirubin AST ALT Alkaline Phosphatase Troponin I Total Protein Albumin Globulin Albumin/Globulin Ratio Urine Color Yellow Urine Clarity Cloudy Urine pH 5.0 Ur Specific Grover 1.020 Urine Protein 100 H Urine Glucose (UA) 100 H Urine Ketones Negative Urine Occult Blood 25 H Urine Nitrite Negative Urine Bilirubin Negative Urine Urobilinogen Normal Ur Leukocyte Esterase 500 H Urine RBC 0 SEEN Urine WBC >100 SEEN Ur Squamous Epith Cells 0 SEEN Urine Bacteria 0 SEEN Urine Mucus 0 SEEN Random Vancomycin Hep Bs Antigen Hep B Core Total Ab 08/01/18 08/01/18 08/01/18 14:30 14:30 16:56 WBC RBC Hgb Hct MCV MCH MCHC RDW RDW Differential Plt Count MPV Immature Gran % (Auto) Neut % (Auto) Lymph % (Auto) Vermilion % (Auto) Eos % (Auto) Baso % (Auto) Absolute Neuts (auto) Absolute Lymphs (auto) Total Counted Plt Morphology Comment PT INR APTT Specimen Type ART Sample Site R Radial pH 7.26 L Bicarbonate Actual 17.1 L POC Total CO2 18 Base Excess -10 L O2 Saturation 95 O2 % 35 ABG pCO2 37.8 ABG pO2 85 Donnie Test POS VBG pH VBG pO2 VBG O2 Sat (Calc) VBG O2 Content VBG Base Excess POC Mix VBG pCO2 Pt Tmp Respiration Rate 14 O2 Delivery Device Vent Liter Flow Vent Mode A-C Tidal Volume 500 POC PEEP 5 Blood Gas Notified Whom ICU Blood Gas Notified Time 1653 Sodium Potassium Chloride Carbon Dioxide Anion Gap BUN Creatinine Estim Creat Clear Calc Est GFR (MDRD) Af Amer Est GFR (MDRD) Non-Af BUN/Creatinine Ratio Glucose Lactic Acid Calcium Magnesium 1.7 Total Bilirubin AST ALT Alkaline Phosphatase Troponin I 0.017 Total Protein Albumin Globulin Albumin/Globulin Ratio Urine Color Urine Clarity Urine pH Ur Specific Grover Urine Protein Urine Glucose (UA) Urine Ketones Urine Occult Blood Urine Nitrite Urine Bilirubin Urine Urobilinogen Ur Leukocyte Esterase Urine RBC Urine WBC Ur Squamous Epith Cells Urine Bacteria Urine Mucus Random Vancomycin Hep Bs Antigen Pending Hep B Core Total Ab Pending 08/01/18 08/01/18 08/01/18 19:20 19:20 22:38 WBC RBC Hgb Hct MCV MCH MCHC RDW RDW Differential Plt Count MPV Immature Gran % (Auto) Neut % (Auto) Lymph % (Auto) Vermilion % (Auto) Eos % (Auto) Baso % (Auto) Absolute Neuts (auto) Absolute Lymphs (auto) Total Counted Plt Morphology Comment PT INR APTT Specimen Type Sample Site pH Bicarbonate Actual POC Total CO2 Base Excess O2 Saturation O2 % ABG pCO2 ABG pO2 Donnie Test VBG pH VBG pO2 VBG O2 Sat (Calc) VBG O2 Content VBG Base Excess POC Mix VBG pCO2 Pt Tmp Respiration Rate O2 Delivery Device Liter Flow Vent Mode Tidal Volume POC PEEP Blood Gas Notified Whom Blood Gas Notified Time Sodium Potassium Chloride Carbon Dioxide Anion Gap BUN Creatinine Estim Creat Clear Calc Est GFR (MDRD) Af Amer Est GFR (MDRD) Non-Af BUN/Creatinine Ratio Glucose Lactic Acid Calcium Magnesium 1.3 L Total Bilirubin AST ALT Alkaline Phosphatase Troponin I 3.250 H* 5.540 H* Total Protein Albumin Globulin Albumin/Globulin Ratio Urine Color Urine Clarity Urine pH Ur Specific Grover Urine Protein Urine Glucose (UA) Urine Ketones Urine Occult Blood Urine Nitrite Urine Bilirubin Urine Urobilinogen Ur Leukocyte Esterase Urine RBC Urine WBC Ur Squamous Epith Cells Urine Bacteria Urine Mucus Random Vancomycin < 0.8 Hep Bs Antigen Hep B Core Total Ab 08/01/18 08/01/18 08/02/18 22:38 22:50 05:20 WBC 12.3 H 12.6 H RBC 3.63 L 3.68 L Hgb 10.2 L 10.4 L Hct 30.9 L 31.5 L MCV 85.1 85.6 MCH 28.1 28.3 MCHC 33.0 33.0 RDW 15.0 H 14.6 RDW Differential 47.1 H 44.0 H Plt Count 194 190 MPV 12.6 H 13.6 H Immature Gran % (Auto) 0.600 Neut % (Auto) 61.8 Lymph % (Auto) 15.8 L Vermilion % (Auto) 10.7 H Eos % (Auto) 10.9 H Baso % (Auto) 0.2 Absolute Neuts (auto) 7.6 Absolute Lymphs (auto) 1.94 Total Counted Not Reportable Plt Morphology Comment PT 13.7 INR 1.1 APTT 33.2 Specimen Type Sample Site pH Bicarbonate Actual POC Total CO2 Base Excess O2 Saturation O2 % ABG pCO2 ABG pO2 Donnie Test VBG pH VBG pO2 VBG O2 Sat (Calc) VBG O2 Content VBG Base Excess POC Mix VBG pCO2 Pt Tmp Respiration Rate O2 Delivery Device Liter Flow Vent Mode Tidal Volume POC PEEP Blood Gas Notified Whom Blood Gas Notified Time Sodium Potassium Chloride Carbon Dioxide Anion Gap BUN Creatinine Estim Creat Clear Calc Est GFR (MDRD) Af Amer Est GFR (MDRD) Non-Af BUN/Creatinine Ratio Glucose Lactic Acid Calcium Magnesium Total Bilirubin AST ALT Alkaline Phosphatase Troponin I Total Protein Albumin Globulin Albumin/Globulin Ratio Urine Color Urine Clarity Urine pH Ur Specific Grover Urine Protein Urine Glucose (UA) Urine Ketones Urine Occult Blood Urine Nitrite Urine Bilirubin Urine Urobilinogen Ur Leukocyte Esterase Urine RBC Urine WBC Ur Squamous Epith Cells Urine Bacteria Urine Mucus Random Vancomycin Hep Bs Antigen Hep B Core Total Ab 08/02/18 08/02/18 05:20 05:20 WBC RBC Hgb Hct MCV MCH MCHC RDW RDW Differential Plt Count MPV Immature Gran % (Auto) Neut % (Auto) Lymph % (Auto) Vermilion % (Auto) Eos % (Auto) Baso % (Auto) Absolute Neuts (auto) Absolute Lymphs (auto) Total Counted Plt Morphology Comment PT INR APTT 73.4 H Specimen Type Sample Site pH Bicarbonate Actual POC Total CO2 Base Excess O2 Saturation O2 % ABG pCO2 ABG pO2 Donnie Test VBG pH VBG pO2 VBG O2 Sat (Calc) VBG O2 Content VBG Base Excess POC Mix VBG pCO2 Pt Tmp Respiration Rate O2 Delivery Device Liter Flow Vent Mode Tidal Volume POC PEEP Blood Gas Notified Whom Blood Gas Notified Time Sodium 138 Potassium 3.8 Chloride 102 Carbon Dioxide 23.0 Anion Gap 13 BUN 50 H Creatinine 5.47 H Estim Creat Clear Calc 15.17 Est GFR (MDRD) Af Amer 14 L Est GFR (MDRD) Non-Af 11 L BUN/Creatinine Ratio 9.1 L Glucose 219 H Lactic Acid Calcium 7.7 L Magnesium Total Bilirubin 0.60 AST 34 ALT 24 Alkaline Phosphatase 148 H Troponin I Total Protein 6.1 L Albumin 2.5 L Globulin 3.6 Albumin/Globulin Ratio 0.7 L Urine Color Urine Clarity Urine pH Ur Specific Grover Urine Protein Urine Glucose (UA) Urine Ketones Urine Occult Blood Urine Nitrite Urine Bilirubin Urine Urobilinogen Ur Leukocyte Esterase Urine RBC Urine WBC Ur Squamous Epith Cells Urine Bacteria Urine Mucus Random Vancomycin Hep Bs Antigen Hep B Core Total Ab POC Glucose 08/02/18 08/01/18 08/01/18 00:16 22:40 19:27 POC Glucose 161 H 151 H 179 H Clinical Impression(s) from Imaging Studies Chest X-Ray 08/01/18 10:02 IMPRESSION: 1. Right subclavian central venous catheter extends into the right jugular vein/neck. Repositioning recommended. 2. Satisfactory position of endotracheal tube. 3. Bullous and fibrotic changes of the right upper lung field, similar. 4. No airspace consolidation or pneumothorax. Electronically Signed: Yves Lamb MD at 11:45 EDT , Service support , Abdomen Ultrasound 08/01/18 10:31 IMPRESSION: 1. Solitary gallstone without sonographic evidence of acute cholecystitis. 2. Mild hepatomegaly. Electronically Signed: Yves Lamb MD at 12:15 EDT , Service support , KUB X-Ray 08/01/18 14:20 IMPRESSION: Enteric tube extends to the gastric fundus. Electronically Signed: Yves Lamb MD at 15:05 EDT , Service support , Chest X-Ray 08/01/18 14:28 IMPRESSION: Satisfactory position of right subclavian central venous catheter and jugular dialysis catheter Electronically Signed: Yves Lamb MD at 15:04 EDT , Service support , KUB X-Ray 08/02/18 02:10 IMPRESSION: The enteric tube tip lies within the gastric fundus and should be advanced. No bowel obstruction seen. at 0429 Reported and signed by: Wilberto Hernandez MD Electronically Signed: Wilberto Hernandez, at 4:28 EDT Tel , Service support , KUB X-Ray 08/02/18 04:59 IMPRESSION: The enteric tube has been advanced and appears in good position. No bowel obstruction. at 0540 Reported and signed by: Wilberto Hernandez MD Electronically Signed: Wilberto Hernandez, at 5:39 EDT Tel , Service support , Assessment/Plan Active and Suspected Problems (Last Reviewed 08/01/18 @ 13:11 by Jose J Tucker DO) Hypotension, unspecified (Acute) Severe sepsis (Acute) Pseudomembranous enterocolitis (Acute) Hyperkalemia, diminished renal excretion (Acute) Cholelithiasis (Acute) Infectious encephalopathy (Acute) Uremia of renal origin (Acute) Hyperglycemia due to type 2 diabetes mellitus (Acute) Septic shock (Acute) NICK (acute kidney injury) (Acute) C. difficile colitis (Acute) Hyperkalemia (Acute) Metabolic acidosis (Acute) Hyponatremia (Acute) NSTEMI (non-ST elevated myocardial infarction) (Acute) RECOMMENDATIONS: 1. Hemodialysis per nephrology 2. Await cultures, continue C. difficile therapy 3. Broaden antibiotic spectrum 4. Obtain MRSA swab 5. Continue amiodarone and heparin per cardiology IMPRESSIONS: 1. Septic shock secondary to possible C. difficile versus pneumonia Patient with hypotension on presentation while being treated for C. difficile. Patient did have a possible right lower lobe infiltrate on chest x- ray, but is currently only receiving therapy for C. difficile colitis. Will expand antibiotic coverage. Wean Levophed as tolerated. Likely not remove any fluids with hemodialysis for now. 2. Acute hypoxic respiratory failure Unclear etiology at this time. Patient did have significant metabolic acidosis on presentation and this may be secondary to respiratory muscle fatigue. Patient did have a questionable right lower lobe infiltrate on original chest x-ray. Will broaden antibiotic spectrum to cover possible healthcare associated pneumonia. Patient does have improvement in respiratory status following hemodialysis. Spontaneous breathing and awakening trials per protocol. Patient appears to be tolerating Precedex well. 3. Acute on chronic kidney disease stage IV Patient with significant elevation in BUN and creatinine over the course of 3 days. Unclear if this is prerenal secondary to dehydration with C. difficile versus hypotension related to septic shock. Patient did respond well to hemodialysis. Nephrology is following. Defer additional hemodialysis to nephrology. Patient is still making urine. Would suggest no volume removal until hemodynamic status improves. 4. Non-ST elevation HI Patient does have an extensive cardiac history. Patient has had an elevation in troponin to 5.5. Patient has been initiated on heparin. Some of the arrhythmia may be secondary to electrolyte disturbances. Cardiology is following. Defer to cardiology on amiodarone drip. Patient may require a repeat heart catheterization in the future, but renal function precludes use of contrast at this time. 5. Severe metabolic acidosis/hyperkalemia/hyponatremia Likely secondary to #3. Patient has received hemodialysis. Defer to nephrology on electrolyte replacement in the interim. Patient did receive Kayexalate, so development of hypokalemia will need to be monitored. 6. Secondary hyperparathyroidism/history of colon cancer/LADARIUS with noncompliance/paroxysmal A. fib/radiculopathy Complicates care, management, recovery and prognosis. Continue to monitor. TIME: 45 minutes of critical care time spent addressing patient's septic shock, respiratory failure, renal failure, review of all data and collaboration with care team (6:30 AM to 8 AM) Code Visit [id number]: [id number] Critical care first hour
[2018-08-02 07:50] LABS: Bedside Glucose 209 mg/dL (70-110)
--- NOTE | 2018-08-02 09:01 | PCM.PN.HOSP ---
Patient Problems: Active and Suspected Problems (Last Reviewed 08/01/18 @ 13:11 by Jose J Tucker DO) Hypotension, unspecified (Acute) Severe sepsis (Acute) Pseudomembranous enterocolitis (Acute) Hyperkalemia, diminished renal excretion (Acute) Cholelithiasis (Acute) Infectious encephalopathy (Acute) Uremia of renal origin (Acute) Hyperglycemia due to type 2 diabetes mellitus (Acute) Septic shock (Acute) NICK (acute kidney injury) (Acute) C. difficile colitis (Acute) Hyperkalemia (Acute) Metabolic acidosis (Acute) Hyponatremia (Acute) NSTEMI (non-ST elevated myocardial infarction) (Acute) Subjective: Had dialysis catheter placed as well as a properly positioned right SC TLC. Had HD, which he tolerated. Still requiring ventilator. Vitals/I&O's: Vital Signs Temp Pulse Resp BP Pulse Ox 36.9 C 58 L 14 118/65 100 08/02/18 08:00 08/02/18 08:27 08/02/18 08:27 08/02/18 08:00 08/02/18 08:27 Oxygen Flow Rate (L/min) 2 Oxygen Delivery Method Mechanical Ventilator Weight: 99.4 kg Body Mass Index (BMI) 29.3 Intake and Output for Last 24 Hours 07/31/18 08/01/18 08/02/18 23:59 23:59 23:59 Intake Total 1388 / 1388 2265.9 / 2265.9 Output Total 225 / 225 350 / 350 Balance 1163 / 1163 1915.9 / 1915.9 General: - - awake. on vent. afebrile. HEENT: Atraumatic, Normocephalic, - - ETT and OG in place Neck: No Nodes, Thyroid Normal Size and Texture Lungs: Diminished, - - coarse breath sounds bilaterally. Cardiovascular: Regular rate, Regular Rhythm, Normal S1, Normal S2, No murmurs Abdomen: Bowel Sounds Present, Soft, Non Tender, Non-Distended, No Hepato-splenomegaly Extremities: No edema, No Calf Tenderness Skin: No rashes, No breakdown Musculoskeletal: No Tenderness to Palpation of Joints or Extremities, No Muscle Wasting Neurological: Muscle tone normal, - - no clonus. Psych/Mental Status: Normal Affect, Appropriate Laboratory Results 08/01/18 10:13: Sodium 129 L, Potassium 6.2 H*, Chloride 102, Carbon Dioxide 12.0 L, Anion Gap 15, BUN 104 H*, Creatinine 11.70 H*, Estim Creat Clear Calc 7.09, Est GFR (MDRD) Af Amer 6 L, Est GFR (MDRD) Non-Af 5 L, BUN/Creatinine Ratio 8.9 L, Glucose 276 H, Calcium 9.1, Total Bilirubin 0.30, AST 12 L, ALT 20, Alkaline Phosphatase 191 H, Troponin I < 0.015, Total Protein 8.5 H, Albumin 3.5, Globulin 5.0 H, Albumin/Globulin Ratio 0.7 L 08/01/18 10:13: Lactic Acid 2.2 H 08/01/18 10:13: WBC 20.2 H, RBC 4.59 L, Hgb 13.3, Hct 40.2, MCV 87.6, MCH 29.0, MCHC 33.1, RDW 15.4 H, RDW Differential 49.1 H, Plt Count 242, MPV 13.6 H, Immature Gran % (Auto) 0.700, Neut % (Auto) 63.9, Lymph % (Auto) 15.3 L, [place] % (Auto) 7.8, Eos % (Auto) 12.3 H, Baso % (Auto) 0.0, Absolute Neuts (auto) 12.9 H, Absolute Lymphs (auto) 3.08, Total Counted Not Reportable, Plt Morphology Comment LARGE 08/01/18 11:04: Specimen Type SHERI, Sample Site OTHER, VBG pH 7.07 L*, VBG pO2 37, VBG O2 Sat (Calc) 49 L, VBG O2 Content 11 L, VBG Base Excess -20 L, POC Mix VBG pCO2 Pt Tmp 35.8 L, O2 Delivery Device Nasal Can, Liter Flow 2.0, Blood Gas Notified Whom ED , Blood Gas Notified Time 1102 08/01/18 11:50: Potassium 6.6 H* 08/01/18 12:30: Urine Color Yellow, Urine Clarity Cloudy, Urine pH 5.0, Ur Specific [place] 1.020, Urine Protein 100 H, Urine Glucose (UA) 100 H, Urine Ketones Negative, Urine Occult Blood 25 H, Urine Nitrite Negative, Urine Bilirubin Negative, Urine Urobilinogen Normal, Ur Leukocyte Esterase 500 H, Urine RBC 0 SEEN, Urine WBC >100 SEEN, Ur Squamous Epith Cells 0 SEEN, Urine Bacteria 0 SEEN, Urine Mucus 0 SEEN 08/01/18 14:30: Magnesium 1.7, Troponin I 0.017 08/01/18 14:30: Hep Bs Antigen Pending, Hep B Core Total Ab Pending 08/01/18 16:56: Specimen Type ART, Sample Site R Radial, pH 7.26 L, Bicarbonate Actual 17.1 L, POC Total CO2 18, Base Excess -10 L, O2 Saturation 95, O2 % 35, ABG pCO2 37.8, ABG pO2 85, Donnie Test POS, Respiration Rate 14, O2 Delivery Device Vent, Vent Mode A-C, Tidal Volume 500, POC PEEP 5, Blood Gas Notified Whom ICU , Blood Gas Notified Time 1653 08/01/18 19:20: Troponin I 3.250 H* 08/01/18 19:20: Random Vancomycin < 0.8 08/01/18 19:27: POC Glucose 179 H 08/01/18 22:38: Magnesium 1.3 L, Troponin I 5.540 H* 08/01/18 22:38: PT 13.7, INR 1.1, APTT 33.2 08/01/18 22:40: POC Glucose 151 H 08/01/18 22:50: WBC 12.3 H, RBC 3.63 L, Hgb 10.2 L, Hct 30.9 L, MCV 85.1, MCH 28.1, MCHC 33.0, RDW 15.0 H, RDW Differential 47.1 H, Plt Count 194, MPV 12.6 H, Immature Gran % (Auto) 0.600, Neut % (Auto) 61.8, Lymph % (Auto) 15.8 L, [place] % (Auto) 10.7 H, Eos % (Auto) 10.9 H, Baso % (Auto) 0.2, Absolute Neuts (auto) 7.6, Absolute Lymphs (auto) 1.94, Total Counted Not Reportable 08/02/18 00:16: POC Glucose 161 H 08/02/18 05:20: WBC 12.6 H, RBC 3.68 L, Hgb 10.4 L, Hct 31.5 L, MCV 85.6, MCH 28.3, MCHC 33.0, RDW 14.6, RDW Differential 44.0 H, Plt Count 190, MPV 13.6 H 08/02/18 05:20: Sodium 138, Potassium 3.8, Chloride 102, Carbon Dioxide 23.0, Anion Gap 13, BUN 50 H, Creatinine 5.47 H, Estim Creat Clear Calc 15.17, Est GFR (MDRD) Af Amer 14 L, Est GFR (MDRD) Non-Af 11 L, BUN/Creatinine Ratio 9.1 L, Glucose 219 H, Calcium 7.7 L, Total Bilirubin 0.60, AST 34, ALT 24, Alkaline Phosphatase 148 H, Total Protein 6.1 L, Albumin 2.5 L, Globulin 3.6, Albumin/Globulin Ratio 0.7 L 08/02/18 05:20: APTT 73.4 H 08/02/18 05:20: Troponin I Pending 08/02/18 05:28: POC Glucose 209 H Current [facility] Atorvastatin Calcium (Lipitor) 80 mg PO QHS [facility] Last Admin: 08/01/18 22:58 Dose: 80 mg Chlorhexidine Gluconate () 15 ml PO BID [facility] Last Admin: 08/01/18 22:51 Dose: 15 ml Clopidogrel Bisulfate (Plavix) 75 mg PO DAILY [facility] Famotidine (Pepcid) 20 mg GT DAILY [facility] Glucagon () 1 mg IM .X1 PRN PRN Reason: Hypoglycemia Metronidazole (Flagyl) 500 mg in 100 mls @ 100 mls/hr IV Q8 [facility] Last Admin: 08/02/18 05:15 Dose: 100 mls/hr Sodium Chloride () 1,000 mls @ 150 mls/hr IV .Q6H40M [facility] Last Admin: 08/02/18 05:14 Dose: 150 mls/hr Fentanyl () 100 mls @ 2.5 mls/hr CONT INF .Q40H [facility] Last Admin: 08/01/18 15:20 Dose: 2.5 mls/hr Dexmedetomidine HCl 400 mcg/ (Sodium Chloride) 100 mls @ 11.34 mls/hr CONT INF .Q8H50M [facility] Last Admin: 08/02/18 02:37 Dose: 11.34 mls/hr Heparin Sodium/Dextrose () 25,000 units in 250 mls @ 10 mls/hr IV .Q25H [facility]; Protocol Last Admin: 08/02/18 00:00 Dose: 10 mls/hr Amiodarone HCl 360 mg/ (Dextrose) 200 mls @ 16.67 mls/hr CONT INF .Q12H1M [facility] Stop: 08/03/18 00:09 Last Admin: 08/02/18 06:56 Dose: 16.67 mls/hr Norepinephrine Bitartrate 8 mg (/ Sodium Chloride) 250 mls @ 9.38 mls/hr CONT INF .[id number] [facility] Last Admin: 08/02/18 03:12 Dose: Not Given Piperacillin Sod/Tazobactam (Sod 3.375 gm/ Sodium Chloride) 50 mls @ 12.5 mls/hr IV Q12 [facility] Insulin Glargine (Lantus (Bkc)) 10 units SC QHS [facility] Last Admin: 08/01/18 22:43 Dose: 10 unit Insulin Human Lispro (Humalog Kwikpen (Bkc)) 0 unit SQ Q6 [facility]; Protocol Last Admin: 08/02/18 06:48 Dose: 2 unit Ondansetron HCl (Zofran) 4 mg IV Q8H PRN PRN PRN Reason: NAUSEA/VOMITING Prochlorperazine Edisylate (Compazine Iv) 5 mg IV Q4H PRN PRN PRN Reason: Breakthrough Nausea/Vomiting Sodium Chloride () 5 - 15 ml IV UD PRN PRN Reason: SALINE FLUSH Vancomycin HCl () 500 mg NG Q6 [facility] Last Admin: 08/02/18 06:47 Dose: 500 mg Medical Necessity - Tobacco Use Smoking Status: Current some day smoker Assessment/Plan All Active Problems (Last Reviewed 08/01/18 @ 13:11 by Jose J Tucker DO) Hypotension, unspecified (Acute) Severe sepsis (Acute) Pseudomembranous enterocolitis (Acute) Hyperkalemia, diminished renal excretion (Acute) Cholelithiasis (Acute) Infectious encephalopathy (Acute) Uremia of renal origin (Acute) Hyperglycemia due to type 2 diabetes mellitus (Acute) Septic shock (Acute) NICK (acute kidney injury) (Acute) C. difficile colitis (Acute) Hyperkalemia (Acute) Metabolic acidosis (Acute) Hyponatremia (Acute) NSTEMI (non-ST elevated myocardial infarction) (Acute) Gastroenteritis (Acute) NICK (acute kidney injury) (Acute) Hyperkalemia (Acute) Acute renal failure superimposed on stage 4 chronic kidney disease (Acute) Metabolic acidosis (Acute) Acute exacerbation of chronic obstructive pulmonary disease (COPD) (Resolved) Acute respiratory failure with hypoxemia (Resolved) Benign neoplasm of right lung (Resolved) Influenza B (Resolved) Lower GI bleed (Resolved) Severe sepsis (Resolved) Streptococcal pneumonia (Resolved) Urinary retention due to benign prostatic hyperplasia (Resolved) 1. Septic shock developed after admission (initially severe sepsis) as he developed need for vasopressors Supportive management Currently on Levophed Abdominal ultrasound performed and was unremarkable. Chest x-ray shows no infiltrate. Urinalysis is negative. Blood cultures drawn and pending at the time of this dictation. Was started on treatment for C. diff colitis as outpt, but toxin was not checked, just treated empirically. So, the septic shock could be due to C. diff colits, put not formally confirmed. Continue vancomycin PO and metronidazole IV. Started on Zosyn today Follow up cultures. Patient started on dexmedetomidine, so may have low-grade temps/fevers due to that. 2. C. difficile colitis Patient be on oral vancomycin 500 mg every 6 hours, as noted previously or he received 125 in the emergency room. Initially the vancomycin can be weaned down to the 125mg 4 times daily Also, patient will be on metronidazole. Check stool studies 3. Somnolence Patient was not intubated but I can see no demented hypoxia though his venous blood gas oxygen was low at 49. On the vent and vent management but will be per critical care medicine. Patient will be sedated per protocol to maintain the patient can remain on the vent until he can have spontaneous breathing trial in which he is able to declare himself safe enough to take off the ventilator. 4. Metabolic acidosis improved Likely due to the renal failure and other less light derangements Patient has received bicarbonate 5. Acute kidney injury improved Likely prerenal in etiology IV fluids Had dialysis 08/01 Baseline creatinine is around 2.1, patient was 3.02 on the 6. Hyperkalemia resolved likely secondary to metabolic acidosis 7. Hyponatremia resolved Suspect due to volume depletion IV fluids Reevaluate 8. Malpositioned central catheter As previous dimension, stated by the emergency room physician that would not have any adjustments to the subclavian triple lumen catheter and running into the right ipsilateral internal jugular vein. Patient is currently on no pressors but given the poor positioning and the requirement for additional IV fluids, antibiotics and other sedating medications it is most appropriate that the patient have a central line that is in proper position. I have advised the emergency room staff to get a peripheral IV, they were not, so I instructed them to remove the subclavian triple lumen catheter. I was planning on placing a catheter, but Dr. Ku was consulted for dialysis catheter placement and placed a SC TLC 9.VTE prophylaxis: Subcu heparin. Code Visit Inpatient E&M: 92902 Subs Hosp L3
--- NOTE | 2018-08-02 09:06 | PN_ITS ---
Patient Problems: Active and Suspected Problems (Last Reviewed 08/01/18 @ 13:11 by Jose J Tucker DO) Hypotension, unspecified (Acute) Severe sepsis (Acute) Pseudomembranous enterocolitis (Acute) Hyperkalemia, diminished renal excretion (Acute) Cholelithiasis (Acute) Infectious encephalopathy (Acute) Uremia of renal origin (Acute) Hyperglycemia due to type 2 diabetes mellitus (Acute) Septic shock (Acute) NICK (acute kidney injury) (Acute) C. difficile colitis (Acute) Hyperkalemia (Acute) Metabolic acidosis (Acute) Hyponatremia (Acute) NSTEMI (non-ST elevated myocardial infarction) (Acute) Subjective: Had dialysis catheter placed as well as a properly positioned right SC TLC. Had HD, which he tolerated. Still requiring ventilator. Vitals/I&O's: Vital Signs Temp Pulse Resp BP Pulse Ox 36.9 C 58 L 14 118/65 100 08/02/18 08:00 08/02/18 08:27 08/02/18 08:27 08/02/18 08:00 08/02/18 08:27 Oxygen Flow Rate (L/min) 2 Oxygen Delivery Method Mechanical Ventilator Weight: 99.4 kg Body Mass Index (BMI) 29.3 Intake and Output for Last 24 Hours 07/31/18 08/01/18 08/02/18 23:59 23:59 23:59 Intake Total 1388 / 1388 2265.9 / 2265.9 Output Total 225 / 225 350 / 350 Balance 1163 / 1163 1915.9 / 1915.9 General: - - awake. on vent. afebrile. HEENT: Atraumatic, Normocephalic, - - ETT and OG in place Neck: No Nodes, Thyroid Normal Size and Texture Lungs: Diminished, - - coarse breath sounds bilaterally. Cardiovascular: Regular rate, Regular Rhythm, Normal S1, Normal S2, No murmurs Abdomen: Bowel Sounds Present, Soft, Non Tender, Non-Distended, No Hepato- splenomegaly Extremities: No edema, No Calf Tenderness Skin: No rashes, No breakdown Musculoskeletal: No Tenderness to Palpation of Joints or Extremities, No Muscle Wasting Neurological: Muscle tone normal, - - no clonus. Psych/Mental Status: Normal Affect, Appropriate Laboratory Results 08/01/18 10:13: Sodium 129 L, Potassium 6.2 H*, Chloride 102, Carbon Dioxide 12.0 L, Anion Gap 15, BUN 104 H*, Creatinine 11.70 H*, Estim Creat Clear Calc 7.09, Est GFR (MDRD) Af Amer 6 L, Est GFR (MDRD) Non-Af 5 L, BUN/Creatinine Ratio 8.9 L, Glucose 276 H, Calcium 9.1, Total Bilirubin 0.30, AST 12 L, ALT 20, Alkaline Phosphatase 191 H, Troponin I < 0.015, Total Protein 8.5 H, Albumin 3.5, Globulin 5.0 H, Albumin/Globulin Ratio 0.7 L 08/01/18 10:13: Lactic Acid 2.2 H 08/01/18 10:13: WBC 20.2 H, RBC 4.59 L, Hgb 13.3, Hct 40.2, MCV 87.6, MCH 29.0, MCHC 33.1, RDW 15.4 H, RDW Differential 49.1 H, Plt Count 242, MPV 13.6 H, Immature Gran % (Auto) 0.700, Neut % (Auto) 63.9, Lymph % (Auto) 15.3 L, [place] % (Auto) 7.8, Eos % (Auto) 12.3 H, Baso % (Auto) 0.0, Absolute Neuts (auto) 12.9 H , Absolute Lymphs (auto) 3.08, Total Counted Not Reportable, Plt Morphology Comment LARGE 08/01/18 11:04: Specimen Type SHERI, Sample Site OTHER, VBG pH 7.07 L*, VBG pO2 37, VBG O2 Sat (Calc) 49 L, VBG O2 Content 11 L, VBG Base Excess -20 L, POC Mix VBG pCO2 Pt Tmp 35.8 L, O2 Delivery Device Nasal Can, Liter Flow 2.0, Blood Gas Notified Whom ED , Blood Gas Notified Time 1102 08/01/18 11:50: Potassium 6.6 H* 08/01/18 12:30: Urine Color Yellow, Urine Clarity Cloudy, Urine pH 5.0, Ur Specific [place] 1.020, Urine Protein 100 H, Urine Glucose (UA) 100 H, Urine Ketones Negative, Urine Occult Blood 25 H, Urine Nitrite Negative, Urine Bilirubin Negative, Urine Urobilinogen Normal, Ur Leukocyte Esterase 500 H, Urine RBC 0 SEEN, Urine WBC >100 SEEN, Ur Squamous Epith Cells 0 SEEN, Urine Bacteria 0 SEEN, Urine Mucus 0 SEEN 08/01/18 14:30: Magnesium 1.7, Troponin I 0.017 08/01/18 14:30: Hep Bs Antigen Pending, Hep B Core Total Ab Pending 08/01/18 16:56: Specimen Type ART, Sample Site R Radial, pH 7.26 L, Bicarbonate Actual 17.1 L, POC Total CO2 18, Base Excess -10 L, O2 Saturation 95, O2 % 35, ABG pCO2 37.8, ABG pO2 85, Donnie Test POS, Respiration Rate 14, O2 Delivery Device Vent, Vent Mode A-C, Tidal Volume 500, POC PEEP 5, Blood Gas Notified Whom ICU , Blood Gas Notified Time 1653 08/01/18 19:20: Troponin I 3.250 H* 08/01/18 19:20: Random Vancomycin < 0.8 08/01/18 19:27: POC Glucose 179 H 08/01/18 22:38: Magnesium 1.3 L, Troponin I 5.540 H* 08/01/18 22:38: PT 13.7, INR 1.1, APTT 33.2 08/01/18 22:40: POC Glucose 151 H 08/01/18 22:50: WBC 12.3 H, RBC 3.63 L, Hgb 10.2 L, Hct 30.9 L, MCV 85.1, MCH 28.1, MCHC 33.0, RDW 15.0 H, RDW Differential 47.1 H, Plt Count 194, MPV 12.6 H, Immature Gran % (Auto) 0.600, Neut % (Auto) 61.8, Lymph % (Auto) 15.8 L, [place] % (Auto) 10.7 H, Eos % (Auto) 10.9 H, Baso % (Auto) 0.2, Absolute Neuts (auto) 7.6, Absolute Lymphs (auto) 1.94, Total Counted Not Reportable 08/02/18 00:16: POC Glucose 161 H 08/02/18 05:20: WBC 12.6 H, RBC 3.68 L, Hgb 10.4 L, Hct 31.5 L, MCV 85.6, MCH 28.3, MCHC 33.0, RDW 14.6, RDW Differential 44.0 H, Plt Count 190, MPV 13.6 H 08/02/18 05:20: Sodium 138, Potassium 3.8, Chloride 102, Carbon Dioxide 23.0, Anion Gap 13, BUN 50 H, Creatinine 5.47 H, Estim Creat Clear Calc 15.17, Est GFR (MDRD) Af Amer 14 L, Est GFR (MDRD) Non-Af 11 L, BUN/Creatinine Ratio 9.1 L, Glucose 219 H, Calcium 7.7 L, Total Bilirubin 0.60, AST 34, ALT 24, Alkaline Phosphatase 148 H, Total Protein 6.1 L, Albumin 2.5 L, Globulin 3.6, Albumin/Globulin Ratio 0.7 L 08/02/18 05:20: APTT 73.4 H 08/02/18 05:20: Troponin I Pending 08/02/18 05:28: POC Glucose 209 H Current Medications [facility] ([facility], Baby[facility] Ator[facility] Cal[facility] (Lipitor) 80 [facility] Last Admin: 08/01/18 22:58 Dose: 80 mg Chlorhexidine Gluconate () 15 ml PO BID [facility] Last Admin: 08/01/18 22:51 Dose: 15 ml Clopidogrel Bisulfate (Plavix) 75 mg PO [facility]ILY [facility] Famotidine (Pepcid) 20 mg GT [facility]ILY [facility] Glucagon () 1 mg IM .X1 PRN PRN Reason: Hypoglycemia Metronidazole (Flagyl) 500 mg in 100 mls @ 100 mls/hr IV Q8 [facility] Last Admin: 08/02/18 05:15 Dose: 100 mls/hr Sodium Chloride () 1,000 mls @ 150 mls/hr IV .Q6H40M [facility] Last Admin: 08/02/18 05:14 Dose: 150 mls/hr Fentanyl () 100 mls @ 2.5 mls/hr CONT INF .Q40H [facility] Last Admin: 08/01/18 15:20 Dose: 2.5 mls/hr Dexmedetomidine HCl 400 mcg/ (Sodium Chloride) 100 mls @ 11.34 mls/hr CONT INF .Q8H50M [facility] Last Admin: 08/02/18 02:37 Dose: 11.34 mls/hr Heparin Sodium/Dextrose () 25,000 units in 250 mls @ 10 mls/hr IV .Q25H [facility]; Protocol Last Admin: 08/02/18 00:00 Dose: 10 mls/hr Amiodarone HCl 360 mg/ (Dextrose) 200 mls @ 16.67 mls/hr CONT INF .Q12H1M [facility] Stop: 08/03/18 00:09 Last Admin: 08/02/18 06:56 Dose: 16.67 mls/hr Norepinephrine Bitartrate 8 mg (/ Sodium Chloride) 250 mls @ 9.38 mls/hr CONT INF .[id number] [facility] Last Admin: 08/02/18 03:12 Dose: Not Given Piperacillin Sod/Tazobactam (Sod 3.375 gm/ Sodium Chloride) 50 mls @ 12.5 mls/hr IV Q12 [facility] Insulin Glargine (Lantus (Bkc)) 10 units SC QHS [facility] Last Admin: 08/01/18 22:43 Dose: 10 unit Insulin Human Lispro (Humalog Kwikpen (Bkc)) 0 unit SQ Q6 [facility]; Protocol Last Admin: 08/02/18 06:48 Dose: 2 unit Ondansetron HCl (Zofran) 4 mg IV Q8H PRN PRN PRN Reason: NAUSEA/VOMITING Prochlorperazine Edisylate (Compazine Iv) 5 mg IV Q4H PRN PRN PRN Reason: Breakthrough Nausea/Vomiting Sodium Chloride () 5 - 15 ml IV UD PRN PRN Reason: SALINE FLUSH Vancomycin HCl () 500 mg NG Q6 [facility] Last Admin: 08/02/18 06:47 Dose: 500 mg Medical Necessity - Tobacco Use Smoking Status: Current some day smoker Assessment/Plan All Active Problems (Last Reviewed 08/01/18 @ 13:11 by Jose J Tucker DO) Hypotension, unspecified (Acute) Severe sepsis (Acute) Pseudomembranous enterocolitis (Acute) Hyperkalemia, diminished renal excretion (Acute) Cholelithiasis (Acute) Infectious encephalopathy (Acute) Uremia of renal origin (Acute) Hyperglycemia due to type 2 diabetes mellitus (Acute) Septic shock (Acute) NICK (acute kidney injury) (Acute) C. difficile colitis (Acute) Hyperkalemia (Acute) Metabolic acidosis (Acute) Hyponatremia (Acute) NSTEMI (non-ST elevated myocardial infarction) (Acute) Gastroenteritis (Acute) NICK (acute kidney injury) (Acute) Hyperkalemia (Acute) Acute renal failure superimposed on stage 4 chronic kidney disease (Acute) Metabolic acidosis (Acute) Acute exacerbation of chronic obstructive pulmonary disease (COPD) (Resolved) Acute respiratory failure with hypoxemia (Resolved) Benign neoplasm of right lung (Resolved) Influenza B (Resolved) Lower GI bleed (Resolved) Severe sepsis (Resolved) Streptococcal pneumonia (Resolved) Urinary retention due to benign prostatic hyperplasia (Resolved) 1. Septic shock * developed after admission (initially severe sepsis) as he developed need for vasopressors * Supportive management * Currently on Levophed * Abdominal ultrasound performed and was unremarkable. Chest x-ray shows no infiltrate. Urinalysis is negative. Blood cultures drawn and pending at the time of this dictation. * Was started on treatment for C. diff colitis as outpt, but toxin was not checked, just treated empirically. * So, the septic shock could be due to C. diff colits, put not formally confirmed. Continue vancomycin PO and metronidazole IV. * Started on Zosyn today * Follow up cultures. * Patient started on dexmedetomidine, so may have low-grade temps/fevers due to that. 2. C. difficile colitis * Patient be on oral vancomycin 500 mg every 6 hours, as noted previously or he received 125 in the emergency room. * Initially the vancomycin can be weaned down to the 125mg 4 times daily * Also, patient will be on metronidazole. * Check stool studies 3. Somnolence * Patient was not intubated but I can see no demented hypoxia though his venous blood gas oxygen was low at 49. * On the vent and vent management but will be per critical care medicine. * Patient will be sedated per protocol to maintain the patient can remain on the vent until he can have spontaneous breathing trial in which he is able to declare himself safe enough to take off the ventilator. 4. Metabolic acidosis * improved * Likely due to the renal failure and other less light derangements * Patient has received bicarbonate 5. Acute kidney injury * improved * Likely prerenal in etiology * IV fluids * Had dialysis 08/01 * Baseline creatinine is around 2.1, patient was 3.02 on the 6. Hyperkalemia * resolved * likely secondary to metabolic acidosis 7. Hyponatremia * resolved * Suspect due to volume depletion * IV fluids * Reevaluate 8. Malpositioned central catheter * As previous dimension, stated by the emergency room physician that would not have any adjustments to the subclavian triple lumen catheter and running into the right ipsilateral internal jugular vein. Patient is currently on no pressors but given the poor positioning and the requirement for additional IV fluids, antibiotics and other sedating medications it is most appropriate that the patient have a central line that is in proper position. I have advised the emergency room staff to get a peripheral IV, they were not, so I instructed them to remove the subclavian triple lumen catheter. I was planning on placing a catheter, but Dr. Ku was consulted for dialysis catheter placement and placed a SC TLC 9.VTE prophylaxis: Subcu heparin. Code Visit Inpatient E&M: 95742 Subs Hosp L3
--- NOTE | 2018-08-02 09:15 | CPS ---
Venous blood gas obtained 08/01/18 at 11:06, critical values were reported to Dr. Alegre
[2018-08-02] MEDS: Aspirin 81 MG TAB.CHEW NG (10:18)
[2018-08-02] MEDS: Famotidine 20 MG Tablet GT (10:18)
[2018-08-02] MEDS: Clopidogrel Bisulfate 75 MG Tablet PO (10:18)
--- NOTE | 2018-08-02 10:28 | PCM.PN.CARD ---
Subjectve: The patient does respond to verbal stimuli/questioning. Based upon his response he denies ongoing chest discomfort. Objective: Vital Signs Temp Pulse Resp BP Pulse Ox 98.5 F 55 L 14 118/65 100 08/02/18 08:00 08/02/18 09:42 08/02/18 09:42 08/02/18 08:00 08/02/18 09:42 Oxygen Flow Rate (L/min) 2 Oxygen Delivery Method Mechanical Ventilator Weight: 219 lb 2.232 oz Body Mass Index (BMI) 29.3 Intake and Output for Last 24 Hours 07/31/18 08/01/18 08/02/18 23:59 23:59 23:59 Intake Total 1388 / 1388 2265.9 / 2265.9 Output Total 225 / 225 350 / 350 Balance 1163 / 1163 1915.9 / 1915.9 General: Ill Appearing HEENT: Atraumatic, Normocephalic, PERRL, EOMI, Sclera Non Icteric Neck: Supple, No JVD Lungs: Rhonchi Cardiovascular: Regular Rhythm, Normal S1, Normal S2 Abdomen: Bowel Sounds Present, Soft, Non Tender Extremities: No edema 08/01/18 10:13: Sodium 129 L, Potassium 6.2 H*, Chloride 102, Carbon Dioxide 12.0 L, Anion Gap 15, BUN 104 H*, Creatinine 11.70 H*, Est GFR (MDRD) Af Amer 6 L, Est GFR (MDRD) Non-Af 5 L, BUN/Creatinine Ratio 8.9 L, Glucose 276 H, Calcium 9.1, Total Bilirubin 0.30, Troponin I < 0.015 08/01/18 10:13: Lactic Acid 2.2 H 08/01/18 10:13: WBC 20.2 H, RBC 4.59 L, Hgb 13.3, Hct 40.2, MCV 87.6, MCH 29.0, MCHC 33.1, RDW 15.4 H, RDW Differential 49.1 H, Plt Count 242, MPV 13.6 H, Immature Gran % (Auto) 0.700, Neut % (Auto) 63.9, Lymph % (Auto) 15.3 L, [place] % (Auto) 7.8, Eos % (Auto) 12.3 H, Baso % (Auto) 0.0, Absolute Neuts (auto) 12.9 H, Total Counted Not Reportable 08/01/18 11:04: VBG pH 7.07 L*, VBG pO2 37, VBG O2 Sat (Calc) 49 L, VBG O2 Content 11 L, VBG Base Excess -20 L 08/01/18 11:50: Potassium 6.6 H* 08/01/18 12:30: Urine Color Yellow, Urine Clarity Cloudy, Urine pH 5.0, Ur Specific [place] 1.020, Urine Protein 100 H, Urine Glucose (UA) 100 H, Urine Ketones Negative, Urine Occult Blood 25 H, Urine Nitrite Negative, Urine Bilirubin Negative, Urine Urobilinogen Normal, Ur Leukocyte Esterase 500 H, Urine RBC 0 SEEN, Urine WBC >100 SEEN 08/01/18 14:30: Magnesium 1.7, Troponin I 0.017 08/01/18 16:56: pH 7.26 L, Bicarbonate Actual 17.1 L, POC Total CO2 18, Base Excess -10 L, O2 Saturation 95, ABG pCO2 37.8, ABG pO2 85, Donnie Test POS 08/01/18 19:20: Troponin I 3.250 H* 08/01/18 22:38: Magnesium 1.3 L, Troponin I 5.540 H* 08/01/18 22:38: PT 13.7, INR 1.1, APTT 33.2 08/01/18 22:50: WBC 12.3 H, RBC 3.63 L, Hgb 10.2 L, Hct 30.9 L, MCV 85.1, MCH 28.1, MCHC 33.0, RDW 15.0 H, RDW Differential 47.1 H, Plt Count 194, MPV 12.6 H, Immature Gran % (Auto) 0.600, Neut % (Auto) 61.8, Lymph % (Auto) 15.8 L, [place] % (Auto) 10.7 H, Eos % (Auto) 10.9 H, Baso % (Auto) 0.2, Absolute Neuts (auto) 7.6, Total Counted Not Reportable 08/02/18 05:20: WBC 12.6 H, RBC 3.68 L, Hgb 10.4 L, Hct 31.5 L, MCV 85.6, MCH 28.3, MCHC 33.0, RDW 14.6, RDW Differential 44.0 H, Plt Count 190, MPV 13.6 H 08/02/18 05:20: Sodium 138, Potassium 3.8, Chloride 102, Carbon Dioxide 23.0, Anion Gap 13, BUN 50 H, Creatinine 5.47 H, Est GFR (MDRD) Af Amer 14 L, Est GFR (MDRD) Non-Af 11 L, BUN/Creatinine Ratio 9.1 L, Glucose 219 H, Calcium 7.7 L, Total Bilirubin 0.60 08/02/18 05:20: APTT 73.4 H 08/02/18 05:20: Troponin I 5.640 H* Rhythm: Sinus rhythm EKG: Sinus rhythm; no acute ECG changes Medical Necessity - Tobacco Use Smoking Status: Current some day smoker Assessment/Plan 1. Acute non-ST segment elevation [place] The patient is in the ICU undergoing evaluation care of the aforementioned multiple medical issues. He has been found to have abnormal cardiac enzymes compatible with an acute non-ST segment elevation [place]. This may be a secondary type II event related to his underlying noncardiovascular condition with respect to his hypotension, metabolic acidosis, hyperkalemia, with acute on chronic renal insufficiency secondary to his sepsis syndrome. At the present time he will continue to be monitored. His cardiac enzymes have remained elevated. They will be followed for decrease. His cardiac rhythm remains sinus at this time. His follow-up ECG demonstrates sinus rhythm with no acute ECG changes. A transthoracic echocardiogram can be requested to reassess his left ventricular wall motion and systolic function. In the interim he is being treated medically. This would include aspirin, antiplatelet therapy, anticoagulant therapy, and lipid-lowering therapy. Based upon his hypotension requiring IV vasopressor support he is not a candidate for agents such as nitrates or beta-blockers at this time. Also, based upon his acute noncardiovascular related issues including his acute on chronic renal insufficiency he is not an ideal candidate for further evaluation with diagnostic cardiac catheterization at this time would include concerns of underlying IV contrast related nephropathy superimposed upon his underlying acute on chronic renal insufficiency and the potential for prolonged or permanent hemodialysis superimposed upon his temporary dialysis. Thus at the present time he will continue conservative medical management. 2. CAD status post PCI He does have a history of underlying CAD and PCI as noted above. Again, at the present time, he is cardiac enzyme change may be a type II event secondary to supply demand mismatch secondary to his multiple noncardiovascular issues in progress. He will continue to be monitored. He will continue noninvasive evaluation. He will continue medical therapy and support. Again he is not an ideal candidate for further evaluation in the cardiac catheterization laboratory at this time. 3. Paroxysmal atrial fibrillation He has a history of underlying paroxysmal atrial fibrillation. He was evaluated in cardiovascular consultation for such in April 2017. At that time he did not receive anticoagulant therapy secondary to concerns of underlying gastrointestinal related bleeding process. 4. Nonsustained wide-complex tachycardia He had an episode of nonsustained wide-complex tachycardia. It may be compatible with nonsustained ventricular tachycardia. Based upon his ongoing noncardiac and cardiac issues he will continue to be followed and treated medically. This will include electrolyte support. This will also include antiarrhythmic therapy with IV amiodarone. 5. Hyperlipidemia He can continue lipid evaluation care as deemed appropriate. 6. Hypertension The present time he is hypotensive thought secondary to his sepsis syndrome. He is continuing IV volume support and IV vasopressor support with levophed. 7. Diabetes mellitus He will continue evaluation care per internal medicine. 8. Peripheral vascular disease He has a report of underlying peripheral vascular disease. The details are unknown at this time. He has been on Pletal. With respect to his cardiovascular condition his Pletal would be placed on hold as he will be receiving other antiplatelet therapy at this time. 9. 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 10. Hypotension Again he has hypotensive thought secondary to an underlying sepsis syndrome as supported by his elevated white count, elevated lactic acid level, superimposed upon his other clinical symptoms/objective markers. He is receiving IV fluids and IV vasopressor support. 11. Metabolic acidosis He is undergoing evaluation care per internal medicine for such. This is included medical therapy as well as mechanical intubation/ventilation. 12. Hyperkalemia He is undergone medical management and acute hemodialysis. His potassium level has improved. 13. Acute on chronic renal insufficiency He does appear to have a history of chronic renal insufficiency. He has had waxing and waning levels. There is been some concern in the past that his acute episodes may be related to changes in his volume status. At the present time his creatinine level is markedly elevated. He is being treated with IV fluids. He has also undergone hemodialysis. 14. Sepsis He has been diagnosed with sepsis. Again this is based on his clinical scenario and objective markers. He has been receiving IV fluids and IV vasopressor support. 15. C. difficile colitis He has previously been diagnosed with C. difficile toxin. He has been treated medically. He is undergoing reevaluation at this time. In the meantime he is being treated medically with antibiotic therapy with vancomycin and Flagyl. Comment: The above was discussed with the patient, his sisters were present, and the [facility] ICU staff. This note was generated with [employer] dictation software. It may contain incorrect words, spelling, and punctuation that were not noted in checking the note before signing.
[2018-08-02] MEDS: Chlorhexidine 15 ML PO ×2 (11:09→21:53)
[2018-08-02] MEDS: 0.9% NaCl Peripheral Flush Adult/Peds IV ×4 (13:41→19:54)
[2018-08-02 13:59] LABS: Partial Thromboplast Time 61.7 Seconds (24.1-36.2)
[2018-08-02 14:21] LABS: Bedside Glucose 203 mg/dL (70-110)
[2018-08-02 15:54] LABS: M R Staph aureus DNA By PCR Negative (Negative); Probe Check PASS; Specimen Processing Control PASS
[2018-08-02] MEDS: NEPRO TUBE FEED 1,000 ML 55 ML GT (18:23)
[2018-08-02 18:26] LABS: Bedside Glucose 178 mg/dL (70-110)
[2018-08-02 20:15] LABS: Partial Thromboplast Time 50.1 Seconds (24.1-36.2)
[2018-08-02] MEDS: fentaNYL drip 100 ML 2.5 MCG CONT INF (21:55)
[2018-08-02] MEDS: Atorvastatin Calcium 80 MG Tablet PO (21:55)
[2018-08-02 22:15] LABS: Bedside Glucose 147 mg/dL (70-110)
[2018-08-02] MEDS: HEPARIN/D5w 25,000 UNITS 25,000 UNITS/250 ML IV.SOLN. 10 UNITS IV ×2 (23:42)
[2018-08-02 23:56] LABS: Bedside Glucose 192 mg/dL (70-110)
[2018-08-03] VITALS (31 sets, daily range): BP systolic 102–203; BP diastolic 57–105; PULSE 55–108; RESP 12–22; TEMP 36.6–38.1; O2SAT 96–100
[2018-08-03] MEDS: Dexmedetomidine 1,000 mcg in 0.9% NS 240 mL 27.34 MCG CONT INF (02:07)
[2018-08-03 02:56] LABS: Partial Thromboplast Time 63.7 Seconds (24.1-36.2)
[2018-08-03 04:45] LABS: Absolute Lymphocyte Count 1.66 X10^3/ul (0.83-4.51); Absolute Neutrophil Count 5.2 X10^3/uL (2.0-7.7); Basophil# 0.02 X10^3/uL; Basophil% 0.2 % (0-1); Eosinophils% 13.5 % (0-5); Hematocrit 27.4 % (40-54); Hemoglobin 9.1 g/dl (13.0-16.5); Lymphocyte # 1.66 X10^3/ul (4.0); Lymphocyte % 18.7 % (19-41); Mean Corp Hgb Conc 33.2 g/gl (32-36); Mean Corpuscular Hgb 28.8 pg (27.0-32.0); Mean Corpuscular Volume 86.7 fL (80-94); Mean Platelet Vol. 12.2 fl (6.2-12.0); Monocyte# 0.77 X10^3/uL; Monocyte% 8.7 % (0-10); Neutrophil # 5.23 X10^3/uL (2.7-7.7); Neutrophil % 58.7 % (47-70); Platelet Count 157 K/mm3 (150-450); RBC Distribution Width CV 14.9 % (11.6-14.6); RBC Distribution Width SD 46.8 fl (35.1-43.9); Red Blood Count 3.16 M/mm3 (4.6-6.2); White Blood Count 8.9 K/mm3 (4.4-11.0)
[2018-08-03 04:48] LABS: POSITIVE COUNT NO; POSITIVE DIFFERENTIAL NO; POSITIVE MORPHOLOGY NO
[2018-08-03 05:10] LABS: ALB/GLOB Ratio 0.7 RATIO (0.9-2.4); AST(SGOT) 25 U/L (15-37); Alanine Aminotransfer ALT/SGPT 22 U/L (16-61); Albumin, Serum 2.3 g/dL (3.2-5.0); Alkaline Phosphatase 166 U/L (45-117); Anion Gap 8 (5-15); BUN 52 mg/dL (7-18); Calcium,Total 7.9 mg/dL (8.5-10.1); Chloride 109 mmol/L (98-107); Creatinine, Serum 4.71 mg/dL (0.70-1.30); EST Glomerular Filtration Rate 13 mL/min (>60); Est Glom Filt Rate - Afr Amer 16 mL/min (>60); Estimated Creatinine Clearance 17.62 ml/min; Globulin 3.4 g/dL (2.2-4.2); Glucose 227 mg/dL (74-106); Potassium 4.1 mmol/L (3.5-5.1); Protein, Total 5.7 g/dL (6.4-8.2); Sodium Level 139 mmol/L (136-145)
[2018-08-03] MEDS: 0.9% NaCl Peripheral Flush Adult/Peds IV ×2 (05:46→05:52)
[2018-08-03] MEDS: Insulin Lispro 100 UNIT/ML INSULN.PEN SQ (05:47)
[2018-08-03] MEDS: CHLORHEXIDINE GLUC 2% CLOTH 1 EACH TOWELETTE TOPICAL (05:52)
[2018-08-03] MEDS: 0.9% Normal Saline 1,000 ML 150 ML IV (05:52)
[2018-08-03 06:06] LABS: Bedside Glucose 202 mg/dL (70-110)
--- NOTE | 2018-08-03 06:38 | PN.CARD_ITS ---
Subjectve: Patient seen and evaluated. Intubated Objective: Vital Signs Temp Pulse Resp BP Pulse Ox 99.2 F H 57 L 14 125/71 H 100 08/03/18 06:00 08/03/18 06:00 08/03/18 06:00 08/03/18 06:00 08/03/18 06:00 Oxygen Flow Rate (L/min) 2 Oxygen Delivery Method Mechanical Ventilator Weight: 226 lb 13.69 oz Body Mass Index (BMI) 29.3 Intake and Output for Last 24 Hours 08/01/18 08/02/18 08/03/18 23:59 23:59 23:59 Intake Total 1388 / 1388 6270.2 / 6270.2 1639 / 1639 Output Total 225 / 225 1450 / 1450 250 / 250 Balance 1163 / 1163 4820.2 / 4820.2 1389 / 1389 General: Awake HEENT: PERRL, EOMI, Sclera Non Icteric Neck: Supple, Good ROM, No Lymph Node Enlargement Lungs: Clear to auscultation Cardiovascular: Regular Rhythm, Normal S1, Normal S2, No Murmurs, No Rubs, No Gallops Vascular: No Carotid Bruits, Normal Femoral Pulses, Normal Radial Pulses, Normal Dorsalis Pedal Pulse, Normal Posterior Tibial Pulses Abdomen: Bowel Sounds Present, Soft, Non Tender, No HSM, No Organomegaly Extremities: No Cyanosis, No Clubbing, No edema Musculoskeletal: No Erythema Lymphatic: No Lymph Node Enlargement Neurological: No Focal Motor or Sensory Deficit 08/02/18 05:20: Sodium 138, Potassium 3.8, Chloride 102, Carbon Dioxide 23.0, Anion Gap 13, BUN 50 H, Creatinine 5.47 H, Est GFR (MDRD) Af Amer 14 L, Est GFR (MDRD) Non-Af 11 L, BUN/Creatinine Ratio 9.1 L, Glucose 219 H, Calcium 7.7 L, Total Bilirubin 0.60 08/02/18 05:20: Troponin I 5.640 H* 08/02/18 13:35: APTT 61.7 H 08/02/18 18:15: Troponin I 3.520 H* 08/02/18 19:45: APTT 50.1 H 08/03/18 02:30: APTT 63.7 H 08/03/18 04:35: WBC 8.9, RBC 3.16 L, Hgb 9.1 L, Hct 27.4 L, MCV 86.7, MCH 28.8, MCHC 33.2, RDW 14.9 H, RDW Differential 46.8 H, Plt Count 157, MPV 12.2 H, Immature Gran % (Auto) 0.200, Neut % (Auto) 58.7, Lymph % (Auto) 18.7 L, [place] % (Auto) 8.7, Eos % (Auto) 13.5 H, Baso % (Auto) 0.2, Absolute Neuts (auto) 5.2, Total Counted Not Reportable 08/03/18 04:35: Sodium 139, Potassium 4.1, Chloride 109 H, Carbon Dioxide 22.0, Anion Gap 8, BUN 52 H, Creatinine 4.71 H, Est GFR (MDRD) Af Amer 16 L, Est GFR (MDRD) Non-Af 13 L, BUN/Creatinine Ratio 11.0, Glucose 227 H, Calcium 7.9 L, Total Bilirubin 0.30 Rhythm: EKG: ECHO: Stress Test: Cardiac Cath: PCI: CT Surgery: Holter monitor: EPS: PPM: CXR: Chest CT Scan: Medical Necessity - Tobacco Use Smoking Status: Current some day smoker Assessment/Plan The patient is in the ICU undergoing evaluation care of the aforementioned multiple medical issues. He has been found to have abnormal cardiac enzymes compatible with an acute non-ST segment elevation [place]. This may be a secondary type II event related to his underlying noncardiovascular condition with respect to his hypotension, metabolic acidosis, hyperkalemia, with acute on chronic renal insufficiency secondary to his sepsis syndrome. * A transthoracic echocardiogram can be requested to reassess his left ventricular wall motion and systolic function. In the interim he is being treated medically. This would include aspirin, antiplatelet therapy, anticoagulant therapy, and lipid-lowering therapy. Based upon his hypotension requiring IV vasopressor support he is not a candidate for agents such as nitrates or beta-blockers at this time. At the present time he will continue conservative medical management. 2. CAD status post PCI He does have a history of underlying CAD and PCI as noted above. Again, at the present time, he is cardiac enzyme change may be a type II event secondary to supply demand mismatch secondary to his multiple noncardiovascular issues in progress. He will continue to be monitored. He will continue noninvasive evaluation. He will continue medical therapy and support. Again he is not an ideal candidate for further evaluation in the cardiac catheterization laboratory at this time. 3. Paroxysmal atrial fibrillation He has a history of underlying paroxysmal atrial fibrillation. He was evaluated in cardiovascular consultation for such in April 2017. At that time he did not receive anticoagulant therapy secondary to concerns of unde rlying gastrointestinal related bleeding process. 4. Nonsustained wide-complex tachycardia He had an episode of nonsustained wide-complex tachycardia. It may be compatible with nonsustained ventricular tachycardia. Based upon his ongoing noncardiac and cardiac issues he will continue to be followed and treated medically. Thank you for allowing me to participate in the care of your patient. Please don't hesitate to call if any issues arise
--- NOTE | 2018-08-03 06:38 | PCM.PN.INT ---
Subjective: The patient was seen and examined at the bedside this morning. Events from the last 24 hours have been reviewed. The patient was febrile overnight with a T-max of 100.6 ?F. The patient's Levophed requirement was able to be weaned off completely at approximately 10 PM last evening. He remains hemodynamically stable this morning. The patient did tolerate hemodialysis yesterday. He is currently doing well on his spontaneous breathing trial, with an FiO2 requirement of 35%. Per my discussion with the patient's family this morning, the patient apparently had some form of a stool test (? C diff) done at his primary care doctor's office in the days leading up to his hospitalization. He was also placed on p.o. vancomycin by his PCP. Of note, the patient was noted to be positive for C. difficile during his hospitalization in May. The patient currently follows with me in the pulmonary medicine clinic due to a history of COPD. He has a [id number] smoking history, and recently started smoking once again within the last several months. In addition, he has known obstructive sleep apnea, for which he is noncompliant with the use of noninvasive positive pressure ventilation. The patient's medical history is also significant for colon cancer for which he is status post subtotal colectomy in 2018, chronic kidney disease, paroxysmal atrial fibrillation, coronary artery disease status post CABG and diabetes. Objective: The patient's most recent lab work, culture data and imaging studies have all been personally reviewed. C. difficile was negative. Urine and blood cultures are pending. Respiratory culture appears to be normal respiratory genesis. Surface echocardiogram dated April 2017 revealed normal LV size and thickness with an ejection fraction of 65% and stage II diastolic dysfunction. The patient has known obstructive sleep apnea and is currently prescribed nocturnal bilevel therapy with a pressure support of 16/10 centimeters of water. The patient also has known COPD with an FEV1 of 36% of predicted. General: Alert, No apparent distress, - - Intubated and mechanically ventilated. Currently tolerating spontaneous mode of mechanical ventilation. HEENT: Atraumatic, PERRLA, Normocephalic Oral: No Gingival or Mucosal Lesions/ Ulcerations Neck: Supple, No Nodes, Trachea Midline Lungs: No rhonchi, No wheeze, No rales, Diminished Cardiovascular: Normal S1, Normal S2, No murmurs, Bradycardic Abdomen: Bowel Sounds Present, Soft, Non Tender, Obese Extremities: No clubbing, No cyanosis, No edema Skin: No breakdown Musculoskeletal: No Tenderness to Palpation of Joints or Extremities, No Muscle Wasting Lymphatic: No Cervical, Supraclavicular, or Inguinal Adenopathy Neurological: - - No focal neurological deficits. Attempting to move extremities. Alert and able to follow commands appropriately. Vital Signs Temp Pulse Resp BP Pulse Ox 99.2 F H 57 L 14 125/71 H 100 08/03/18 06:00 08/03/18 06:00 08/03/18 06:00 08/03/18 06:00 08/03/18 06:00 Oxygen Flow Rate (L/min) 2 Oxygen Delivery Method Mechanical Ventilator Weight: 226 lb 13.69 oz Body Mass Index (BMI) 29.3 Intake and Output for Last 24 Hours 08/01/18 08/02/18 08/03/18 23:59 23:59 23:59 Intake Total 1388 / 1388 6270.2 / 6270.2 1639 / 1639 Output Total 225 / 225 1450 / 1450 250 / 250 Balance 1163 / 1163 4820.2 / 4820.2 1389 / 1389 Labs (Last 48 Hours) 08/01/18 08/01/18 08/01/18 10:13 10:13 10:13 WBC 20.2 H RBC 4.59 L Hgb 13.3 Hct 40.2 MCV 87.6 MCH 29.0 MCHC 33.1 RDW 15.4 H RDW Differential 49.1 H Plt Count 242 MPV 13.6 H Immature Gran % (Auto) 0.700 Neut % (Auto) 63.9 Lymph % (Auto) 15.3 L Moody % (Auto) 7.8 Eos % (Auto) 12.3 H Baso % (Auto) 0.0 Absolute Neuts (auto) 12.9 H Absolute Lymphs (auto) 3.08 Total Counted Not Reportable Plt Morphology Comment LARGE PT INR APTT Specimen Type Sample Site pH Bicarbonate Actual POC Total CO2 Base Excess O2 Saturation O2 % ABG pCO2 ABG pO2 Donnie Test VBG pH VBG pO2 VBG O2 Sat (Calc) VBG O2 Content VBG Base Excess POC Mix VBG pCO2 Pt Tmp Respiration Rate O2 Delivery Device Liter Flow Vent Mode Tidal Volume POC PEEP Blood Gas Notified Whom Blood Gas Notified Time Sodium 129 L Potassium 6.2 H* Chloride 102 Carbon Dioxide 12.0 L Anion Gap 15 BUN 104 H* Creatinine 11.70 H* Estim Creat Clear Calc 7.09 Est GFR (MDRD) Af Amer 6 L Est GFR (MDRD) Non-Af 5 L BUN/Creatinine Ratio 8.9 L Glucose 276 H Lactic Acid 2.2 H Calcium 9.1 Magnesium Total Bilirubin 0.30 AST 12 L ALT 20 Alkaline Phosphatase 191 H Troponin I < 0.015 Total Protein 8.5 H Albumin 3.5 Globulin 5.0 H Albumin/Globulin Ratio 0.7 L Urine Color Urine Clarity Urine pH Ur Specific Randolph Urine Protein Urine Glucose (UA) Urine Ketones Urine Occult Blood Urine Nitrite Urine Bilirubin Urine Urobilinogen Ur Leukocyte Esterase Urine RBC Urine WBC Ur Squamous Epith Cells Urine Bacteria Urine Mucus Random Vancomycin Hep Bs Antigen Hep B Core Total Ab MRSA (PCR) POC Glucose 08/01/18 08/01/18 08/01/18 11:04 11:50 12:30 WBC RBC Hgb Hct MCV MCH MCHC RDW RDW Differential Plt Count MPV Immature Gran % (Auto) Neut % (Auto) Lymph % (Auto) Moody % (Auto) Eos % (Auto) Baso % (Auto) Absolute Neuts (auto) Absolute Lymphs (auto) Total Counted Plt Morphology Comment PT INR APTT Specimen Type SHERI Sample Site OTHER pH Bicarbonate Actual POC Total CO2 Base Excess O2 Saturation O2 % ABG pCO2 ABG pO2 Donnie Test VBG pH 7.07 L* VBG pO2 37 VBG O2 Sat (Calc) 49 L VBG O2 Content 11 L VBG Base Excess -20 L POC Mix VBG pCO2 Pt Tmp 35.8 L Respiration Rate O2 Delivery Device Nasal Can Liter Flow 2.0 Vent Mode Tidal Volume POC PEEP Blood Gas Notified Whom ED Blood Gas Notified Time 1102 Sodium Potassium 6.6 H* Chloride Carbon Dioxide Anion Gap BUN Creatinine Estim Creat Clear Calc Est GFR (MDRD) Af Amer Est GFR (MDRD) Non-Af BUN/Creatinine Ratio Glucose Lactic Acid Calcium Magnesium Total Bilirubin AST ALT Alkaline Phosphatase Troponin I Total Protein Albumin Globulin Albumin/Globulin Ratio Urine Color Yellow Urine Clarity Cloudy Urine pH 5.0 Ur Specific Randolph 1.020 Urine Protein 100 H Urine Glucose (UA) 100 H Urine Ketones Negative Urine Occult Blood 25 H Urine Nitrite Negative Urine Bilirubin Negative Urine Urobilinogen Normal Ur Leukocyte Esterase 500 H Urine RBC 0 SEEN Urine WBC >100 SEEN Ur Squamous Epith Cells 0 SEEN Urine Bacteria 0 SEEN Urine Mucus 0 SEEN Random Vancomycin Hep Bs Antigen Hep B Core Total Ab MRSA (PCR) POC Glucose 08/01/18 08/01/18 08/01/18 14:30 14:30 16:56 WBC RBC Hgb Hct MCV MCH MCHC RDW RDW Differential Plt Count MPV Immature Gran % (Auto) Neut % (Auto) Lymph % (Auto) Moody % (Auto) Eos % (Auto) Baso % (Auto) Absolute Neuts (auto) Absolute Lymphs (auto) Total Counted Plt Morphology Comment PT INR APTT Specimen Type ART Sample Site R Radial pH 7.26 L Bicarbonate Actual 17.1 L POC Total CO2 18 Base Excess -10 L O2 Saturation 95 O2 % 35 ABG pCO2 37.8 ABG pO2 85 Donnie Test POS VBG pH VBG pO2 VBG O2 Sat (Calc) VBG O2 Content VBG Base Excess POC Mix VBG pCO2 Pt Tmp Respiration Rate 14 O2 Delivery Device Vent Liter Flow Vent Mode A-C Tidal Volume 500 POC PEEP 5 Blood Gas Notified Whom ICU Blood Gas Notified Time 1653 Sodium Potassium Chloride Carbon Dioxide Anion Gap BUN Creatinine Estim Creat Clear Calc Est GFR (MDRD) Af Amer Est GFR (MDRD) Non-Af BUN/Creatinine Ratio Glucose Lactic Acid Calcium Magnesium 1.7 Total Bilirubin AST ALT Alkaline Phosphatase Troponin I 0.017 Total Protein Albumin Globulin Albumin/Globulin Ratio Urine Color Urine Clarity Urine pH Ur Specific Randolph Urine Protein Urine Glucose (UA) Urine Ketones Urine Occult Blood Urine Nitrite Urine Bilirubin Urine Urobilinogen Ur Leukocyte Esterase Urine RBC Urine WBC Ur Squamous Epith Cells Urine Bacteria Urine Mucus Random Vancomycin Hep Bs Antigen Pending Hep B Core Total Ab Pending MRSA (PCR) POC Glucose 08/01/18 08/01/18 08/01/18 19:20 19:20 19:27 WBC RBC Hgb Hct MCV MCH MCHC RDW RDW Differential Plt Count MPV Immature Gran % (Auto) Neut % (Auto) Lymph % (Auto) Moody % (Auto) Eos % (Auto) Baso % (Auto) Absolute Neuts (auto) Absolute Lymphs (auto) Total Counted Plt Morphology Comment PT INR APTT Specimen Type Sample Site pH Bicarbonate Actual POC Total CO2 Base Excess O2 Saturation O2 % ABG pCO2 ABG pO2 Donnie Test VBG pH VBG pO2 VBG O2 Sat (Calc) VBG O2 Content VBG Base Excess POC Mix VBG pCO2 Pt Tmp Respiration Rate O2 Delivery Device Liter Flow Vent Mode Tidal Volume POC PEEP Blood Gas Notified Whom Blood Gas Notified Time Sodium Potassium Chloride Carbon Dioxide Anion Gap BUN Creatinine Estim Creat Clear Calc Est GFR (MDRD) Af Amer Est GFR (MDRD) Non-Af BUN/Creatinine Ratio Glucose Lactic Acid Calcium Magnesium Total Bilirubin AST ALT Alkaline Phosphatase Troponin I 3.250 H* Total Protein Albumin Globulin Albumin/Globulin Ratio Urine Color Urine Clarity Urine pH Ur Specific Randolph Urine Protein Urine Glucose (UA) Urine Ketones Urine Occult Blood Urine Nitrite Urine Bilirubin Urine Urobilinogen Ur Leukocyte Esterase Urine RBC Urine WBC Ur Squamous Epith Cells Urine Bacteria Urine Mucus Random Vancomycin < 0.8 Hep Bs Antigen Hep B Core Total Ab MRSA (PCR) POC Glucose 179 H 08/01/18 08/01/18 08/01/18 22:38 22:38 22:40 WBC RBC Hgb Hct MCV MCH MCHC RDW RDW Differential Plt Count MPV Immature Gran % (Auto) Neut % (Auto) Lymph % (Auto) Moody % (Auto) Eos % (Auto) Baso % (Auto) Absolute Neuts (auto) Absolute Lymphs (auto) Total Counted Plt Morphology Comment PT 13.7 INR 1.1 APTT 33.2 Specimen Type Sample Site pH Bicarbonate Actual POC Total CO2 Base Excess O2 Saturation O2 % ABG pCO2 ABG pO2 Donnie Test VBG pH VBG pO2 VBG O2 Sat (Calc) VBG O2 Content VBG Base Excess POC Mix VBG pCO2 Pt Tmp Respiration Rate O2 Delivery Device Liter Flow Vent Mode Tidal Volume POC PEEP Blood Gas Notified Whom Blood Gas Notified Time Sodium Potassium Chloride Carbon Dioxide Anion Gap BUN Creatinine Estim Creat Clear Calc Est GFR (MDRD) Af Amer Est GFR (MDRD) Non-Af BUN/Creatinine Ratio Glucose Lactic Acid Calcium Magnesium 1.3 L Total Bilirubin AST ALT Alkaline Phosphatase Troponin I 5.540 H* Total Protein Albumin Globulin Albumin/Globulin Ratio Urine Color Urine Clarity Urine pH Ur Specific Randolph Urine Protein Urine Glucose (UA) Urine Ketones Urine Occult Blood Urine Nitrite Urine Bilirubin Urine Urobilinogen Ur Leukocyte Esterase Urine RBC Urine WBC Ur Squamous Epith Cells Urine Bacteria Urine Mucus Random Vancomycin Hep Bs Antigen Hep B Core Total Ab MRSA (PCR) POC Glucose 151 H 08/01/18 08/02/18 08/02/18 22:50 00:16 05:20 WBC 12.3 H 12.6 H RBC 3.63 L 3.68 L Hgb 10.2 L 10.4 L Hct 30.9 L 31.5 L MCV 85.1 85.6 MCH 28.1 28.3 MCHC 33.0 33.0 RDW 15.0 H 14.6 RDW Differential 47.1 H 44.0 H Plt Count 194 190 MPV 12.6 H 13.6 H Immature Gran % (Auto) 0.600 Neut % (Auto) 61.8 Lymph % (Auto) 15.8 L Moody % (Auto) 10.7 H Eos % (Auto) 10.9 H Baso % (Auto) 0.2 Absolute Neuts (auto) 7.6 Absolute Lymphs (auto) 1.94 Total Counted Not Reportable Plt Morphology Comment PT INR APTT Specimen Type Sample Site pH Bicarbonate Actual POC Total CO2 Base Excess O2 Saturation O2 % ABG pCO2 ABG pO2 Donnie Test VBG pH VBG pO2 VBG O2 Sat (Calc) VBG O2 Content VBG Base Excess POC Mix VBG pCO2 Pt Tmp Respiration Rate O2 Delivery Device Liter Flow Vent Mode Tidal Volume POC PEEP Blood Gas Notified Whom Blood Gas Notified Time Sodium Potassium Chloride Carbon Dioxide Anion Gap BUN Creatinine Estim Creat Clear Calc Est GFR (MDRD) Af Amer Est GFR (MDRD) Non-Af BUN/Creatinine Ratio Glucose Lactic Acid Calcium Magnesium Total Bilirubin AST ALT Alkaline Phosphatase Troponin I Total Protein Albumin Globulin Albumin/Globulin Ratio Urine Color Urine Clarity Urine pH Ur Specific Randolph Urine Protein Urine Glucose (UA) Urine Ketones Urine Occult Blood Urine Nitrite Urine Bilirubin Urine Urobilinogen Ur Leukocyte Esterase Urine RBC Urine WBC Ur Squamous Epith Cells Urine Bacteria Urine Mucus Random Vancomycin Hep Bs Antigen Hep B Core Total Ab MRSA (PCR) POC Glucose 161 H 08/02/18 08/02/18 08/02/18 05:20 05:20 05:20 WBC RBC Hgb Hct MCV MCH MCHC RDW RDW Differential Plt Count MPV Immature Gran % (Auto) Neut % (Auto) Lymph % (Auto) Moody % (Auto) Eos % (Auto) Baso % (Auto) Absolute Neuts (auto) Absolute Lymphs (auto) Total Counted Plt Morphology Comment PT INR APTT 73.4 H Specimen Type Sample Site pH Bicarbonate Actual POC Total CO2 Base Excess O2 Saturation O2 % ABG pCO2 ABG pO2 Donnie Test VBG pH VBG pO2 VBG O2 Sat (Calc) VBG O2 Content VBG Base Excess POC Mix VBG pCO2 Pt Tmp Respiration Rate O2 Delivery Device Liter Flow Vent Mode Tidal Volume POC PEEP Blood Gas Notified Whom Blood Gas Notified Time Sodium 138 Potassium 3.8 Chloride 102 Carbon Dioxide 23.0 Anion Gap 13 BUN 50 H Creatinine 5.47 H Estim Creat Clear Calc 15.17 Est GFR (MDRD) Af Amer 14 L Est GFR (MDRD) Non-Af 11 L BUN/Creatinine Ratio 9.1 L Glucose 219 H Lactic Acid Calcium 7.7 L Magnesium Total Bilirubin 0.60 AST 34 ALT 24 Alkaline Phosphatase 148 H Troponin I 5.640 H* Total Protein 6.1 L Albumin 2.5 L Globulin 3.6 Albumin/Globulin Ratio 0.7 L Urine Color Urine Clarity Urine pH Ur Specific Randolph Urine Protein Urine Glucose (UA) Urine Ketones Urine Occult Blood Urine Nitrite Urine Bilirubin Urine Urobilinogen Ur Leukocyte Esterase Urine RBC Urine WBC Ur Squamous Epith Cells Urine Bacteria Urine Mucus Random Vancomycin Hep Bs Antigen Hep B Core Total Ab MRSA (PCR) POC Glucose 08/02/18 08/02/18 08/02/18 05:28 11:00 13:34 WBC RBC Hgb Hct MCV MCH MCHC RDW RDW Differential Plt Count MPV Immature Gran % (Auto) Neut % (Auto) Lymph % (Auto) Moody % (Auto) Eos % (Auto) Baso % (Auto) Absolute Neuts (auto) Absolute Lymphs (auto) Total Counted Plt Morphology Comment PT INR APTT Specimen Type Sample Site pH Bicarbonate Actual POC Total CO2 Base Excess O2 Saturation O2 % ABG pCO2 ABG pO2 Donnie Test VBG pH VBG pO2 VBG O2 Sat (Calc) VBG O2 Content VBG Base Excess POC Mix VBG pCO2 Pt Tmp Respiration Rate O2 Delivery Device Liter Flow Vent Mode Tidal Volume POC PEEP Blood Gas Notified Whom Blood Gas Notified Time Sodium Potassium Chloride Carbon Dioxide Anion Gap BUN Creatinine Estim Creat Clear Calc Est GFR (MDRD) Af Amer Est GFR (MDRD) Non-Af BUN/Creatinine Ratio Glucose Lactic Acid Calcium Magnesium Total Bilirubin AST ALT Alkaline Phosphatase Troponin I Total Protein Albumin Globulin Albumin/Globulin Ratio Urine Color Urine Clarity Urine pH Ur Specific Randolph Urine Protein Urine Glucose (UA) Urine Ketones Urine Occult Blood Urine Nitrite Urine Bilirubin Urine Urobilinogen Ur Leukocyte Esterase Urine RBC Urine WBC Ur Squamous Epith Cells Urine Bacteria Urine Mucus Random Vancomycin Hep Bs Antigen Hep B Core Total Ab MRSA (PCR) Negative POC Glucose 209 H 203 H 08/02/18 08/02/18 08/02/18 13:35 18:15 18:15 WBC RBC Hgb Hct MCV MCH MCHC RDW RDW Differential Plt Count MPV Immature Gran % (Auto) Neut % (Auto) Lymph % (Auto) Moody % (Auto) Eos % (Auto) Baso % (Auto) Absolute Neuts (auto) Absolute Lymphs (auto) Total Counted Plt Morphology Comment PT INR APTT 61.7 H Specimen Type Sample Site pH Bicarbonate Actual POC Total CO2 Base Excess O2 Saturation O2 % ABG pCO2 ABG pO2 Donnie Test VBG pH VBG pO2 VBG O2 Sat (Calc) VBG O2 Content VBG Base Excess POC Mix VBG pCO2 Pt Tmp Respiration Rate O2 Delivery Device Liter Flow Vent Mode Tidal Volume POC PEEP Blood Gas Notified Whom Blood Gas Notified Time Sodium Potassium Chloride Carbon Dioxide Anion Gap BUN Creatinine Estim Creat Clear Calc Est GFR (MDRD) Af Amer Est GFR (MDRD) Non-Af BUN/Creatinine Ratio Glucose Lactic Acid Calcium Magnesium Total Bilirubin AST ALT Alkaline Phosphatase Troponin I 3.520 H* Total Protein Albumin Globulin Albumin/Globulin Ratio Urine Color Urine Clarity Urine pH Ur Specific Randolph Urine Protein Urine Glucose (UA) Urine Ketones Urine Occult Blood Urine Nitrite Urine Bilirubin Urine Urobilinogen Ur Leukocyte Esterase Urine RBC Urine WBC Ur Squamous Epith Cells Urine Bacteria Urine Mucus Random Vancomycin Hep Bs Antigen Hep B Core Total Ab MRSA (PCR) POC Glucose 178 H 08/02/18 08/02/18 08/02/18 19:45 21:45 23:32 WBC RBC Hgb Hct MCV MCH MCHC RDW RDW Differential Plt Count MPV Immature Gran % (Auto) Neut % (Auto) Lymph % (Auto) Moody % (Auto) Eos % (Auto) Baso % (Auto) Absolute Neuts (auto) Absolute Lymphs (auto) Total Counted Plt Morphology Comment PT INR APTT 50.1 H Specimen Type Sample Site pH Bicarbonate Actual POC Total CO2 Base Excess O2 Saturation O2 % ABG pCO2 ABG pO2 Donnie Test VBG pH VBG pO2 VBG O2 Sat (Calc) VBG O2 Content VBG Base Excess POC Mix VBG pCO2 Pt Tmp Respiration Rate O2 Delivery Device Liter Flow Vent Mode Tidal Volume POC PEEP Blood Gas Notified Whom Blood Gas Notified Time Sodium Potassium Chloride Carbon Dioxide Anion Gap BUN Creatinine Estim Creat Clear Calc Est GFR (MDRD) Af Amer Est GFR (MDRD) Non-Af BUN/Creatinine Ratio Glucose Lactic Acid Calcium Magnesium Total Bilirubin AST ALT Alkaline Phosphatase Troponin I Total Protein Albumin Globulin Albumin/Globulin Ratio Urine Color Urine Clarity Urine pH Ur Specific Randolph Urine Protein Urine Glucose (UA) Urine Ketones Urine Occult Blood Urine Nitrite Urine Bilirubin Urine Urobilinogen Ur Leukocyte Esterase Urine RBC Urine WBC Ur Squamous Epith Cells Urine Bacteria Urine Mucus Random Vancomycin Hep Bs Antigen Hep B Core Total Ab MRSA (PCR) POC Glucose 147 H 192 H 08/03/18 08/03/18 08/03/18 02:30 04:35 04:35 WBC 8.9 RBC 3.16 L Hgb 9.1 L Hct 27.4 L MCV 86.7 MCH 28.8 MCHC 33.2 RDW 14.9 H RDW Differential 46.8 H Plt Count 157 MPV 12.2 H Immature Gran % (Auto) 0.200 Neut % (Auto) 58.7 Lymph % (Auto) 18.7 L Moody % (Auto) 8.7 Eos % (Auto) 13.5 H Baso % (Auto) 0.2 Absolute Neuts (auto) 5.2 Absolute Lymphs (auto) 1.66 Total Counted Not Reportable Plt Morphology Comment PT INR APTT 63.7 H Specimen Type Sample Site pH Bicarbonate Actual POC Total CO2 Base Excess O2 Saturation O2 % ABG pCO2 ABG pO2 Donnie Test VBG pH VBG pO2 VBG O2 Sat (Calc) VBG O2 Content VBG Base Excess POC Mix VBG pCO2 Pt Tmp Respiration Rate O2 Delivery Device Liter Flow Vent Mode Tidal Volume POC PEEP Blood Gas Notified Whom Blood Gas Notified Time Sodium 139 Potassium 4.1 Chloride 109 H Carbon Dioxide 22.0 Anion Gap 8 BUN 52 H Creatinine 4.71 H Estim Creat Clear Calc 17.62 Est GFR (MDRD) Af Amer 16 L Est GFR (MDRD) Non-Af 13 L BUN/Creatinine Ratio 11.0 Glucose 227 H Lactic Acid Calcium 7.9 L Magnesium Total Bilirubin 0.30 AST 25 ALT 22 Alkaline Phosphatase 166 H Troponin I Total Protein 5.7 L Albumin 2.3 L Globulin 3.4 Albumin/Globulin Ratio 0.7 L Urine Color Urine Clarity Urine pH Ur Specific Randolph Urine Protein Urine Glucose (UA) Urine Ketones Urine Occult Blood Urine Nitrite Urine Bilirubin Urine Urobilinogen Ur Leukocyte Esterase Urine RBC Urine WBC Ur Squamous Epith Cells Urine Bacteria Urine Mucus Random Vancomycin Hep Bs Antigen Hep B Core Total Ab MRSA (PCR) POC Glucose 08/03/18 05:18 WBC RBC Hgb Hct MCV MCH MCHC RDW RDW Differential Plt Count MPV Immature Gran % (Auto) Neut % (Auto) Lymph % (Auto) Moody % (Auto) Eos % (Auto) Baso % (Auto) Absolute Neuts (auto) Absolute Lymphs (auto) Total Counted Plt Morphology Comment PT INR APTT Specimen Type Sample Site pH Bicarbonate Actual POC Total CO2 Base Excess O2 Saturation O2 % ABG pCO2 ABG pO2 Donnie Test VBG pH VBG pO2 VBG O2 Sat (Calc) VBG O2 Content VBG Base Excess POC Mix VBG pCO2 Pt Tmp Respiration Rate O2 Delivery Device Liter Flow Vent Mode Tidal Volume POC PEEP Blood Gas Notified Whom Blood Gas Notified Time Sodium Potassium Chloride Carbon Dioxide Anion Gap BUN Creatinine Estim Creat Clear Calc Est GFR (MDRD) Af Amer Est GFR (MDRD) Non-Af BUN/Creatinine Ratio Glucose Lactic Acid Calcium Magnesium Total Bilirubin AST ALT Alkaline Phosphatase Troponin I Total Protein Albumin Globulin Albumin/Globulin Ratio Urine Color Urine Clarity Urine pH Ur Specific Randolph Urine Protein Urine Glucose (UA) Urine Ketones Urine Occult Blood Urine Nitrite Urine Bilirubin Urine Urobilinogen Ur Leukocyte Esterase Urine RBC Urine WBC Ur Squamous Epith Cells Urine Bacteria Urine Mucus Random Vancomycin Hep Bs Antigen Hep B Core Total Ab MRSA (PCR) POC Glucose 202 H Microbiology 08/03/18 02:30 Stool C. difficile DNA Amplification - Final 08/01/18 14:30 Sputum, Induced/Lukens Gram Stain - Final 08/01/18 14:30 Sputum, Induced/Lukens Respiratory Culture - Preliminary Appears to be normal respiratory genesis. Further studies to follow. Clinical Impression(s) from Imaging Studies Chest X-Ray 08/01/18 10:02 IMPRESSION: 1. Right subclavian central venous catheter extends into the right jugular vein/neck. Repositioning recommended. 2. Satisfactory position of endotracheal tube. 3. Bullous and fibrotic changes of the right upper lung field, similar. 4. No airspace consolidation or pneumothorax. Electronically Signed: Yves Lamb MD at 11:45 EDT , Service support , Abdomen Ultrasound 08/01/18 10:31 IMPRESSION: 1. Solitary gallstone without sonographic evidence of acute cholecystitis. 2. Mild hepatomegaly. Electronically Signed: Yves Lamb MD at 12:15 EDT , Service support , KUB X-Ray 08/01/18 14:20 IMPRESSION: Enteric tube extends to the gastric fundus. Electronically Signed: Yves Lamb MD at 15:05 EDT , Service support , Chest X-Ray 08/01/18 14:28 IMPRESSION: Satisfactory position of right subclavian central venous catheter and jugular dialysis catheter Electronically Signed: vYes Lamb MD at 15:04 EDT , Service support , KUB X-Ray 08/02/18 02:10 IMPRESSION: The enteric tube tip lies within the gastric fundus and should be advanced. No bowel obstruction seen. at 0429 Reported and signed by: Wilberto Hernandez MD Electronically Signed: Wilberto Hernandez, at 4:28 EDT Tel , Service support , KUB X-Ray 08/02/18 04:59 IMPRESSION: The enteric tube has been advanced and appears in good position. No bowel obstruction. at 0540 Reported and signed by: Wilberto Hernandez MD Electronically Signed: Wilberto Hernandez, at 5:39 EDT Tel , Service support , Medical Necessity - Tobacco Use Smoking Status: Current some day smoker Assessment/Plan All Active Problems (Last Reviewed 08/01/18 @ 13:11 by Jose J Tucker DO) Hypotension, unspecified (Acute) Severe sepsis (Acute) Pseudomembranous enterocolitis (Acute) Hyperkalemia, diminished renal excretion (Acute) Cholelithiasis (Acute) Infectious encephalopathy (Acute) Uremia of renal origin (Acute) Hyperglycemia due to type 2 diabetes mellitus (Acute) Septic shock (Acute) NICK (acute kidney injury) (Acute) C. difficile colitis (Acute) Hyperkalemia (Acute) Metabolic acidosis (Acute) Hyponatremia (Acute) NSTEMI (non-ST elevated myocardial infarction) (Acute) Gastroenteritis (Acute) NICK (acute kidney injury) (Acute) Hyperkalemia (Acute) Acute renal failure superimposed on stage 4 chronic kidney disease (Acute) Metabolic acidosis (Acute) Acute exacerbation of chronic obstructive pulmonary disease (COPD) (Resolved) Acute respiratory failure with hypoxemia (Resolved) Benign neoplasm of right lung (Resolved) Influenza B (Resolved) Lower GI bleed (Resolved) Severe sepsis (Resolved) Streptococcal pneumonia (Resolved) Urinary retention due to benign prostatic hyperplasia (Resolved) RECOMMENDATIONS: 1. Plan to proceed with a trial of extubation this morning. 2. Once extubated, wean supplemental oxygen to maintain saturations at or above 90%. 3. Perform bedside swallow evaluation and advance diet accordingly. 4. Encourage incentive spirometer use and mobilize patient as tolerated. 5. Continue current antimicrobial regimen. Will obtain consultation from ID, over concerns for recurrent C. difficile colitis. 6. Continue dialysis support per nephrology recommendations. 7. Recommend discontinuation of supplemental IV fluids. IMPRESSIONS: 1. Acute hypoxemic respiratory failure/baseline advanced stage COPD Improved. The patient does have a known history of advanced age COPD and unfortunately continues to smoke cigarettes daily. He was not noted to require supplemental oxygen during his previous 6-minute walk test. Given that he passed his spontaneous breathing trial this morning, the patient will be extubated. Once extubated, wean supplemental oxygen to maintain saturations at or above 90%. Encourage incentive spirometer use and mobilize patient as tolerated. Perform bedside swallow evaluation and advance diet accordingly. 2. Septic shock secondary to possible recurrent C. difficile colitis/gram-negative pneumonia The patient has responded to antimicrobial therapy. He is no longer requiring vasopressor support. We will plan to continue current supportive measures. We will plan to contact the patient's primary care doctor's office to find out if he was in fact tested for C. difficile prior to his arrival to our hospital. In the interim, consultation will be placed to infectious diseases to assist in the management of his recurrent C. difficile colitis. 3. Acute on chronic kidney disease Concerns for ATN in the setting of #2. The patient did have to be dialyzed. Nephrology is following. 4. Non-ST segment elevation NJ/history of coronary artery disease status post PCI The patient will be continued on current medical therapy at the discretion of cardiology. Surface echocardiogram is pending. 5. History of obstructive sleep apnea The patient does have a history of obstructive sleep apnea but is noncompliant with the use of nocturnal Pap therapy. 6. Secondary hyperparathyroidism/history of colon cancer/LADARIUS with noncompliance/paroxysmal A. fib/radiculopathy/continuous tobacco dependency Complicates care, management, recovery and prognosis. The patient will require physical therapy evaluation. Nicotine replacement therapy can be offered while he is admitted to the hospital. TIME: 38 minutes of critical care time, independent of procedures, was spent addressing the patient's acute hypoxemic respiratory failure, septic shock, questionable recurrent C. difficile colitis, acute on chronic kidney disease, non-ST segment elevation NJ, review of all data and collaboration with the care team. ([id number]) Code Visit 9xxxx: [id number] Critical care first hour
--- NOTE | 2018-08-03 06:42 | PN_ITS ---
Subjective: The patient was seen and examined at the bedside this morning. Events from the last 24 hours have been reviewed. The patient was febrile overnight with a T- max of 100.6 ?F. The patient's Levophed requirement was able to be weaned off completely at approximately 10 PM last evening. He remains hemodynamically stable this morning. The patient did tolerate hemodialysis yesterday. He is currently doing well on his spontaneous breathing trial, with an FiO2 requirement of 35%. Per my discussion with the patient's family this morning, the patient apparently had some form of a stool test (? C diff) done at his primary care doctor's office in the days leading up to his hospitalization. He was also placed on p.o. vancomycin by his PCP. Of note, the patient was noted to be positive for C. difficile during his hospitalization in May. The patient currently follows with me in the pulmonary medicine clinic due to a history of COPD. He has a [id number] smoking history, and recently started smoking once again within the last several months. In addition, he has known obstructive sleep apnea, for which he is noncompliant with the use of noninvasive positive pressure ventilation. The patient's medical history is also significant for colon cancer for which he is status post subtotal colectomy in 2018, chronic kidney disease, paroxysmal atrial fibrillation, coronary artery disease status post CABG and diabetes. Objective: The patient's most recent lab work, culture data and imaging studies have all been personally reviewed. C. difficile was negative. Urine and blood cultures are pending. Respiratory culture appears to be normal respiratory genesis. Surface echocardiogram dated April 2017 revealed normal LV size and thickness with an ejection fraction of 65% and stage II diastolic dysfunction. The patient has known obstructive sleep apnea and is currently prescribed nocturnal bilevel therapy with a pressure support of 16/10 centimeters of water. The patient also has known COPD with an FEV1 of 36% of predicted. General: Alert, No apparent distress, - - Intubated and mechanically ventilated. Currently tolerating spontaneous mode of mechanical ventilation. HEENT: Atraumatic, PERRLA, Normocephalic Oral: No Gingival or Mucosal Lesions/ Ulcerations Neck: Supple, No Nodes, Trachea Midline Lungs: No rhonchi, No wheeze, No rales, Diminished Cardiovascular: Normal S1, Normal S2, No murmurs, Bradycardic Abdomen: Bowel Sounds Present, Soft, Non Tender, Obese Extremities: No clubbing, No cyanosis, No edema Skin: No breakdown Musculoskeletal: No Tenderness to Palpation of Joints or Extremities, No Muscle Wasting Lymphatic: No Cervical, Supraclavicular, or Inguinal Adenopathy Neurological: - - No focal neurological deficits. Attempting to move extremities. Alert and able to follow commands appropriately. Vital Signs Temp Pulse Resp BP Pulse Ox 99.2 F H 57 L 14 125/71 H 100 08/03/18 06:00 08/03/18 06:00 08/03/18 06:00 08/03/18 06:00 08/03/18 06:00 Oxygen Flow Rate (L/min) 2 Oxygen Delivery Method Mechanical Ventilator Weight: 226 lb 13.69 oz Body Mass Index (BMI) 29.3 Intake and Output for Last 24 Hours 08/01/18 08/02/18 08/03/18 23:59 23:59 23:59 Intake Total 1388 / 1388 6270.2 / 6270.2 1639 / 1639 Output Total 225 / 225 1450 / 1450 250 / 250 Balance 1163 / 1163 4820.2 / 4820.2 1389 / 1389 Labs (Last 48 Hours) 08/01/18 08/01/18 08/01/18 10:13 10:13 10:13 WBC 20.2 H RBC 4.59 L Hgb 13.3 Hct 40.2 MCV 87.6 MCH 29.0 MCHC 33.1 RDW 15.4 H RDW Differential 49.1 H Plt Count 242 MPV 13.6 H Immature Gran % (Auto) 0.700 Neut % (Auto) 63.9 Lymph % (Auto) 15.3 L [place] % (Auto) 7.8 Eos % (Auto) 12.3 H Baso % (Auto) 0.0 Absolute Neuts (auto) 12.9 H Absolute Lymphs (auto) 3.08 Total Counted Not Reportable Plt Morphology Comment LARGE PT INR APTT Specimen Type Sample Site pH Bicarbonate Actual POC Total CO2 Base Excess O2 Saturation O2 % ABG pCO2 ABG pO2 Donnie Test VBG pH VBG pO2 VBG O2 Sat (Calc) VBG O2 Content VBG Base Excess POC Mix VBG pCO2 Pt Tmp Respiration Rate O2 Delivery Device Liter Flow Vent Mode Tidal Volume POC PEEP Blood Gas Notified Whom Blood Gas Notified Time Sodium 129 L Potassium 6.2 H* Chloride 102 Carbon Dioxide 12.0 L Anion Gap 15 BUN 104 H* Creatinine 11.70 H* Estim Creat Clear Calc 7.09 Est GFR (MDRD) Af Amer 6 L Est GFR (MDRD) Non-Af 5 L BUN/Creatinine Ratio 8.9 L Glucose 276 H Lactic Acid 2.2 H Calcium 9.1 Magnesium Total Bilirubin 0.30 AST 12 L ALT 20 Alkaline Phosphatase 191 H Troponin I < 0.015 Total Protein 8.5 H Albumin 3.5 Globulin 5.0 H Albumin/Globulin Ratio 0.7 L Urine Color Urine Clarity Urine pH Ur Specific [place] Urine Protein Urine Glucose (UA) Urine Ketones Urine Occult Blood Urine Nitrite Urine Bilirubin Urine Urobilinogen Ur Leukocyte Esterase Urine RBC Urine WBC Ur Squamous Epith Cells Urine Bacteria Urine Mucus Random Vancomycin Hep Bs Antigen Hep B Core Total Ab MRSA (PCR) POC Glucose 08/01/18 08/01/18 08/01/18 11:04 11:50 12:30 WBC RBC Hgb Hct MCV MCH MCHC RDW RDW Differential Plt Count MPV Immature Gran % (Auto) Neut % (Auto) Lymph % (Auto) [place] % (Auto) Eos % (Auto) Baso % (Auto) Absolute Neuts (auto) Absolute Lymphs (auto) Total Counted Plt Morphology Comment PT INR APTT Specimen Type SHERI Sample Site OTHER pH Bicarbonate Actual POC Total CO2 Base Excess O2 Saturation O2 % ABG pCO2 ABG pO2 Donnie Test VBG pH 7.07 L* VBG pO2 37 VBG O2 Sat (Calc) 49 L VBG O2 Content 11 L VBG Base Excess -20 L POC Mix VBG pCO2 Pt Tmp 35.8 L Respiration Rate O2 Delivery Device Nasal Can Liter Flow 2.0 Vent Mode Tidal Volume POC PEEP Blood Gas Notified Whom ED Blood Gas Notified Time 1102 Sodium Potassium 6.6 H* Chloride Carbon Dioxide Anion Gap BUN Creatinine Estim Creat Clear Calc Est GFR (MDRD) Af Amer Est GFR (MDRD) Non-Af BUN/Creatinine Ratio Glucose Lactic Acid Calcium Magnesium Total Bilirubin AST ALT Alkaline Phosphatase Troponin I Total Protein Albumin Globulin Albumin/Globulin Ratio Urine Color Yellow Urine Clarity Cloudy Urine pH 5.0 Ur Specific [place] 1.020 Urine Protein 100 H Urine Glucose (UA) 100 H Urine Ketones Negative Urine Occult Blood 25 H Urine Nitrite Negative Urine Bilirubin Negative Urine Urobilinogen Normal Ur Leukocyte Esterase 500 H Urine RBC 0 SEEN Urine WBC >100 SEEN Ur Squamous Epith Cells 0 SEEN Urine Bacteria 0 SEEN Urine Mucus 0 SEEN Random Vancomycin Hep Bs Antigen Hep B Core Total Ab MRSA (PCR) POC Glucose 08/01/18 08/01/18 08/01/18 14:30 14:30 16:56 WBC RBC Hgb Hct MCV MCH MCHC RDW RDW Differential Plt Count MPV Immature Gran % (Auto) Neut % (Auto) Lymph % (Auto) [place] % (Auto) Eos % (Auto) Baso % (Auto) Absolute Neuts (auto) Absolute Lymphs (auto) Total Counted Plt Morphology Comment PT INR APTT Specimen Type ART Sample Site R Radial pH 7.26 L Bicarbonate Actual 17.1 L POC Total CO2 18 Base Excess -10 L O2 Saturation 95 O2 % 35 ABG pCO2 37.8 ABG pO2 85 Donnie Test POS VBG pH VBG pO2 VBG O2 Sat (Calc) VBG O2 Content VBG Base Excess POC Mix VBG pCO2 Pt Tmp Respiration Rate 14 O2 Delivery Device Vent Liter Flow Vent Mode A-C Tidal Volume 500 POC PEEP 5 Blood Gas Notified Whom ICU Blood Gas Notified Time 1653 Sodium Potassium Chloride Carbon Dioxide Anion Gap BUN Creatinine Estim Creat Clear Calc Est GFR (MDRD) Af Amer Est GFR (MDRD) Non-Af BUN/Creatinine Ratio Glucose Lactic Acid Calcium Magnesium 1.7 Total Bilirubin AST ALT Alkaline Phosphatase Troponin I 0.017 Total Protein Albumin Globulin Albumin/Globulin Ratio Urine Color Urine Clarity Urine pH Ur Specific [place] Urine Protein Urine Glucose (UA) Urine Ketones Urine Occult Blood Urine Nitrite Urine Bilirubin Urine Urobilinogen Ur Leukocyte Esterase Urine RBC Urine WBC Ur Squamous Epith Cells Urine Bacteria Urine Mucus Random Vancomycin Hep Bs Antigen Pending Hep B Core Total Ab Pending MRSA (PCR) POC Glucose 08/01/18 08/01/18 08/01/18 19:20 19:20 19:27 WBC RBC Hgb Hct MCV MCH MCHC RDW RDW Differential Plt Count MPV Immature Gran % (Auto) Neut % (Auto) Lymph % (Auto) [place] % (Auto) Eos % (Auto) Baso % (Auto) Absolute Neuts (auto) Absolute Lymphs (auto) Total Counted Plt Morphology Comment PT INR APTT Specimen Type Sample Site pH Bicarbonate Actual POC Total CO2 Base Excess O2 Saturation O2 % ABG pCO2 ABG pO2 Donnie Test VBG pH VBG pO2 VBG O2 Sat (Calc) VBG O2 Content VBG Base Excess POC Mix VBG pCO2 Pt Tmp Respiration Rate O2 Delivery Device Liter Flow Vent Mode Tidal Volume POC PEEP Blood Gas Notified Whom Blood Gas Notified Time Sodium Potassium Chloride Carbon Dioxide Anion Gap BUN Creatinine Estim Creat Clear Calc Est GFR (MDRD) Af Amer Est GFR (MDRD) Non-Af BUN/Creatinine Ratio Glucose Lactic Acid Calcium Magnesium Total Bilirubin AST ALT Alkaline Phosphatase Troponin I 3.250 H* Total Protein Albumin Globulin Albumin/Globulin Ratio Urine Color Urine Clarity Urine pH Ur Specific [place] Urine Protein Urine Glucose (UA) Urine Ketones Urine Occult Blood Urine Nitrite Urine Bilirubin Urine Urobilinogen Ur Leukocyte Esterase Urine RBC Urine WBC Ur Squamous Epith Cells Urine Bacteria Urine Mucus Random Vancomycin < 0.8 Hep Bs Antigen Hep B Core Total Ab MRSA (PCR) POC Glucose 179 H 08/01/18 08/01/18 08/01/18 22:38 22:38 22:40 WBC RBC Hgb Hct MCV MCH MCHC RDW RDW Differential Plt Count MPV Immature Gran % (Auto) Neut % (Auto) Lymph % (Auto) [place] % (Auto) Eos % (Auto) Baso % (Auto) Absolute Neuts (auto) Absolute Lymphs (auto) Total Counted Plt Morphology Comment PT 13.7 INR 1.1 APTT 33.2 Specimen Type Sample Site pH Bicarbonate Actual POC Total CO2 Base Excess O2 Saturation O2 % ABG pCO2 ABG pO2 Donnie Test VBG pH VBG pO2 VBG O2 Sat (Calc) VBG O2 Content VBG Base Excess POC Mix VBG pCO2 Pt Tmp Respiration Rate O2 Delivery Device Liter Flow Vent Mode Tidal Volume POC PEEP Blood Gas Notified Whom Blood Gas Notified Time Sodium Potassium Chloride Carbon Dioxide Anion Gap BUN Creatinine Estim Creat Clear Calc Est GFR (MDRD) Af Amer Est GFR (MDRD) Non-Af BUN/Creatinine Ratio Glucose Lactic Acid Calcium Magnesium 1.3 L Total Bilirubin AST ALT Alkaline Phosphatase Troponin I 5.540 H* Total Protein Albumin Globulin Albumin/Globulin Ratio Urine Color Urine Clarity Urine pH Ur Specific [place] Urine Protein Urine Glucose (UA) Urine Ketones Urine Occult Blood Urine Nitrite Urine Bilirubin Urine Urobilinogen Ur Leukocyte Esterase Urine RBC Urine WBC Ur Squamous Epith Cells Urine Bacteria Urine Mucus Random Vancomycin Hep Bs Antigen Hep B Core Total Ab MRSA (PCR) POC Glucose 151 H 08/01/18 08/02/18 08/02/18 22:50 00:16 05:20 WBC 12.3 H 12.6 H RBC 3.63 L 3.68 L Hgb 10.2 L 10.4 L Hct 30.9 L 31.5 L MCV 85.1 85.6 MCH 28.1 28.3 MCHC 33.0 33.0 RDW 15.0 H 14.6 RDW Differential 47.1 H 44.0 H Plt Count 194 190 MPV 12.6 H 13.6 H Immature Gran % (Auto) 0.600 Neut % (Auto) 61.8 Lymph % (Auto) 15.8 L [place] % (Auto) 10.7 H Eos % (Auto) 10.9 H Baso % (Auto) 0.2 Absolute Neuts (auto) 7.6 Absolute Lymphs (auto) 1.94 Total Counted Not Reportable Plt Morphology Comment PT INR APTT Specimen Type Sample Site pH Bicarbonate Actual POC Total CO2 Base Excess O2 Saturation O2 % ABG pCO2 ABG pO2 Donnie Test VBG pH VBG pO2 VBG O2 Sat (Calc) VBG O2 Content VBG Base Excess POC Mix VBG pCO2 Pt Tmp Respiration Rate O2 Delivery Device Liter Flow Vent Mode Tidal Volume POC PEEP Blood Gas Notified Whom Blood Gas Notified Time Sodium Potassium Chloride Carbon Dioxide Anion Gap BUN Creatinine Estim Creat Clear Calc Est GFR (MDRD) Af Amer Est GFR (MDRD) Non-Af BUN/Creatinine Ratio Glucose Lactic Acid Calcium Magnesium Total Bilirubin AST ALT Alkaline Phosphatase Troponin I Total Protein Albumin Globulin Albumin/Globulin Ratio Urine Color Urine Clarity Urine pH Ur Specific [place] Urine Protein Urine Glucose (UA) Urine Ketones Urine Occult Blood Urine Nitrite Urine Bilirubin Urine Urobilinogen Ur Leukocyte Esterase Urine RBC Urine WBC Ur Squamous Epith Cells Urine Bacteria Urine Mucus Random Vancomycin Hep Bs Antigen Hep B Core Total Ab MRSA (PCR) POC Glucose 161 H 08/02/18 08/02/18 08/02/18 05:20 05:20 05:20 WBC RBC Hgb Hct MCV MCH MCHC RDW RDW Differential Plt Count MPV Immature Gran % (Auto) Neut % (Auto) Lymph % (Auto) [place] % (Auto) Eos % (Auto) Baso % (Auto) Absolute Neuts (auto) Absolute Lymphs (auto) Total Counted Plt Morphology Comment PT INR APTT 73.4 H Specimen Type Sample Site pH Bicarbonate Actual POC Total CO2 Base Excess O2 Saturation O2 % ABG pCO2 ABG pO2 Donnie Test VBG pH VBG pO2 VBG O2 Sat (Calc) VBG O2 Content VBG Base Excess POC Mix VBG pCO2 Pt Tmp Respiration Rate O2 Delivery Device Liter Flow Vent Mode Tidal Volume POC PEEP Blood Gas Notified Whom Blood Gas Notified Time Sodium 138 Potassium 3.8 Chloride 102 Carbon Dioxide 23.0 Anion Gap 13 BUN 50 H Creatinine 5.47 H Estim Creat Clear Calc 15.17 Est GFR (MDRD) Af Amer 14 L Est GFR (MDRD) Non-Af 11 L BUN/Creatinine Ratio 9.1 L Glucose 219 H Lactic Acid Calcium 7.7 L Magnesium Total Bilirubin 0.60 AST 34 ALT 24 Alkaline Phosphatase 148 H Troponin I 5.640 H* Total Protein 6.1 L Albumin 2.5 L Globulin 3.6 Albumin/Globulin Ratio 0.7 L Urine Color Urine Clarity Urine pH Ur Specific [place] Urine Protein Urine Glucose (UA) Urine Ketones Urine Occult Blood Urine Nitrite Urine Bilirubin Urine Urobilinogen Ur Leukocyte Esterase Urine RBC Urine WBC Ur Squamous Epith Cells Urine Bacteria Urine Mucus Random Vancomycin Hep Bs Antigen Hep B Core Total Ab MRSA (PCR) POC Glucose 08/02/18 08/02/18 08/02/18 05:28 11:00 13:34 WBC RBC Hgb Hct MCV MCH MCHC RDW RDW Differential Plt Count MPV Immature Gran % (Auto) Neut % (Auto) Lymph % (Auto) [place] % (Auto) Eos % (Auto) Baso % (Auto) Absolute Neuts (auto) Absolute Lymphs (auto) Total Counted Plt Morphology Comment PT INR APTT Specimen Type Sample Site pH Bicarbonate Actual POC Total CO2 Base Excess O2 Saturation O2 % ABG pCO2 ABG pO2 Donnie Test VBG pH VBG pO2 VBG O2 Sat (Calc) VBG O2 Content VBG Base Excess POC Mix VBG pCO2 Pt Tmp Respiration Rate O2 Delivery Device Liter Flow Vent Mode Tidal Volume POC PEEP Blood Gas Notified Whom Blood Gas Notified Time Sodium Potassium Chloride Carbon Dioxide Anion Gap BUN Creatinine Estim Creat Clear Calc Est GFR (MDRD) Af Amer Est GFR (MDRD) Non-Af BUN/Creatinine Ratio Glucose Lactic Acid Calcium Magnesium Total Bilirubin AST ALT Alkaline Phosphatase Troponin I Total Protein Albumin Globulin Albumin/Globulin Ratio Urine Color Urine Clarity Urine pH Ur Specific [place] Urine Protein Urine Glucose (UA) Urine Ketones Urine Occult Blood Urine Nitrite Urine Bilirubin Urine Urobilinogen Ur Leukocyte Esterase Urine RBC Urine WBC Ur Squamous Epith Cells Urine Bacteria Urine Mucus Random Vancomycin Hep Bs Antigen Hep B Core Total Ab MRSA (PCR) Negative POC Glucose 209 H 203 H 08/02/18 08/02/18 08/02/18 13:35 18:15 18:15 WBC RBC Hgb Hct MCV MCH MCHC RDW RDW Differential Plt Count MPV Immature Gran % (Auto) Neut % (Auto) Lymph % (Auto) [place] % (Auto) Eos % (Auto) Baso % (Auto) Absolute Neuts (auto) Absolute Lymphs (auto) Total Counted Plt Morphology Comment PT INR APTT 61.7 H Specimen Type Sample Site pH Bicarbonate Actual POC Total CO2 Base Excess O2 Saturation O2 % ABG pCO2 ABG pO2 Donnie Test VBG pH VBG pO2 VBG O2 Sat (Calc) VBG O2 Content VBG Base Excess POC Mix VBG pCO2 Pt Tmp Respiration Rate O2 Delivery Device Liter Flow Vent Mode Tidal Volume POC PEEP Blood Gas Notified Whom Blood Gas Notified Time Sodium Potassium Chloride Carbon Dioxide Anion Gap BUN Creatinine Estim Creat Clear Calc Est GFR (MDRD) Af Amer Est GFR (MDRD) Non-Af BUN/Creatinine Ratio Glucose Lactic Acid Calcium Magnesium Total Bilirubin AST ALT Alkaline Phosphatase Troponin I 3.520 H* Total Protein Albumin Globulin Albumin/Globulin Ratio Urine Color Urine Clarity Urine pH Ur Specific [place] Urine Protein Urine Glucose (UA) Urine Ketones Urine Occult Blood Urine Nitrite Urine Bilirubin Urine Urobilinogen Ur Leukocyte Esterase Urine RBC Urine WBC Ur Squamous Epith Cells Urine Bacteria Urine Mucus Random Vancomycin Hep Bs Antigen Hep B Core Total Ab MRSA (PCR) POC Glucose 178 H 08/02/18 08/02/18 08/02/18 19:45 21:45 23:32 WBC RBC Hgb Hct MCV MCH MCHC RDW RDW Differential Plt Count MPV Immature Gran % (Auto) Neut % (Auto) Lymph % (Auto) [place] % (Auto) Eos % (Auto) Baso % (Auto) Absolute Neuts (auto) Absolute Lymphs (auto) Total Counted Plt Morphology Comment PT INR APTT 50.1 H Specimen Type Sample Site pH Bicarbonate Actual POC Total CO2 Base Excess O2 Saturation O2 % ABG pCO2 ABG pO2 Donnie Test VBG pH VBG pO2 VBG O2 Sat (Calc) VBG O2 Content VBG Base Excess POC Mix VBG pCO2 Pt Tmp Respiration Rate O2 Delivery Device Liter Flow Vent Mode Tidal Volume POC PEEP Blood Gas Notified Whom Blood Gas Notified Time Sodium Potassium Chloride Carbon Dioxide Anion Gap BUN Creatinine Estim Creat Clear Calc Est GFR (MDRD) Af Amer Est GFR (MDRD) Non-Af BUN/Creatinine Ratio Glucose Lactic Acid Calcium Magnesium Total Bilirubin AST ALT Alkaline Phosphatase Troponin I Total Protein Albumin Globulin Albumin/Globulin Ratio Urine Color Urine Clarity Urine pH Ur Specific [place] Urine Protein Urine Glucose (UA) Urine Ketones Urine Occult Blood Urine Nitrite Urine Bilirubin Urine Urobilinogen Ur Leukocyte Esterase Urine RBC Urine WBC Ur Squamous Epith Cells Urine Bacteria Urine Mucus Random Vancomycin Hep Bs Antigen Hep B Core Total Ab MRSA (PCR) POC Glucose 147 H 192 H 08/03/18 08/03/18 08/03/18 02:30 04:35 04:35 WBC 8.9 RBC 3.16 L Hgb 9.1 L Hct 27.4 L MCV 86.7 MCH 28.8 MCHC 33.2 RDW 14.9 H RDW Differential 46.8 H Plt Count 157 MPV 12.2 H Immature Gran % (Auto) 0.200 Neut % (Auto) 58.7 Lymph % (Auto) 18.7 L [place] % (Auto) 8.7 Eos % (Auto) 13.5 H Baso % (Auto) 0.2 Absolute Neuts (auto) 5.2 Absolute Lymphs (auto) 1.66 Total Counted Not Reportable Plt Morphology Comment PT INR APTT 63.7 H Specimen Type Sample Site pH Bicarbonate Actual POC Total CO2 Base Excess O2 Saturation O2 % ABG pCO2 ABG pO2 Donnie Test VBG pH VBG pO2 VBG O2 Sat (Calc) VBG O2 Content VBG Base Excess POC Mix VBG pCO2 Pt Tmp Respiration Rate O2 Delivery Device Liter Flow Vent Mode Tidal Volume POC PEEP Blood Gas Notified Whom Blood Gas Notified Time Sodium 139 Potassium 4.1 Chloride 109 H Carbon Dioxide 22.0 Anion Gap 8 BUN 52 H Creatinine 4.71 H Estim Creat Clear Calc 17.62 Est GFR (MDRD) Af Amer 16 L Est GFR (MDRD) Non-Af 13 L BUN/Creatinine Ratio 11.0 Glucose 227 H Lactic Acid Calcium 7.9 L Magnesium Total Bilirubin 0.30 AST 25 ALT 22 Alkaline Phosphatase 166 H Troponin I Total Protein 5.7 L Albumin 2.3 L Globulin 3.4 Albumin/Globulin Ratio 0.7 L Urine Color Urine Clarity Urine pH Ur Specific [place] Urine Protein Urine Glucose (UA) Urine Ketones Urine Occult Blood Urine Nitrite Urine Bilirubin Urine Urobilinogen Ur Leukocyte Esterase Urine RBC Urine WBC Ur Squamous Epith Cells Urine Bacteria Urine Mucus Random Vancomycin Hep Bs Antigen Hep B Core Total Ab MRSA (PCR) POC Glucose 08/03/18 05:18 WBC RBC Hgb Hct MCV MCH MCHC RDW RDW Differential Plt Count MPV Immature Gran % (Auto) Neut % (Auto) Lymph % (Auto) [place] % (Auto) Eos % (Auto) Baso % (Auto) Absolute Neuts (auto) Absolute Lymphs (auto) Total Counted Plt Morphology Comment PT INR APTT Specimen Type Sample Site pH Bicarbonate Actual POC Total CO2 Base Excess O2 Saturation O2 % ABG pCO2 ABG pO2 Donnie Test VBG pH VBG pO2 VBG O2 Sat (Calc) VBG O2 Content VBG Base Excess POC Mix VBG pCO2 Pt Tmp Respiration Rate O2 Delivery Device Liter Flow Vent Mode Tidal Volume POC PEEP Blood Gas Notified Whom Blood Gas Notified Time Sodium Potassium Chloride Carbon Dioxide Anion Gap BUN Creatinine Estim Creat Clear Calc Est GFR (MDRD) Af Amer Est GFR (MDRD) Non-Af BUN/Creatinine Ratio Glucose Lactic Acid Calcium Magnesium Total Bilirubin AST ALT Alkaline Phosphatase Troponin I Total Protein Albumin Globulin Albumin/Globulin Ratio Urine Color Urine Clarity Urine pH Ur Specific [place] Urine Protein Urine Glucose (UA) Urine Ketones Urine Occult Blood Urine Nitrite Urine Bilirubin Urine Urobilinogen Ur Leukocyte Esterase Urine RBC Urine WBC Ur Squamous Epith Cells Urine Bacteria Urine Mucus Random Vancomycin Hep Bs Antigen Hep B Core Total Ab MRSA (PCR) POC Glucose 202 H Microbiology 08/03/18 02:30 Stool C. difficile DNA Amplification - Final 08/01/18 14:30 Sputum, Induced/Lukens Gram Stain - Final 08/01/18 14:30 Sputum, Induced/Lukens Respiratory Culture - Preliminary Appears to be normal respiratory genesis. Further studies to follow. Clinical Impression(s) from Imaging Studies Chest X-Ray 08/01/18 10:02 IMPRESSION: 1. Right subclavian central venous catheter extends into the right jugular vein/neck. Repositioning recommended. 2. Satisfactory position of endotracheal tube. 3. Bullous and fibrotic changes of the right upper lung field, similar. 4. No airspace consolidation or pneumothorax. Electronically Signed: Yves Lamb MD at 11:45 EDT , Service support , Abdomen Ultrasound 08/01/18 10:31 IMPRESSION: 1. Solitary gallstone without sonographic evidence of acute cholecystitis. 2. Mild hepatomegaly. Electronically Signed: Yves Lamb MD at 12:15 EDT , Service support , KUB X-Ray 08/01/18 14:20 IMPRESSION: Enteric tube extends to the gastric fundus. Electronically Signed: Yves Lamb MD at 15:05 EDT , Service support , Chest X-Ray 08/01/18 14:28 IMPRESSION: Satisfactory position of right subclavian central venous catheter and jugular dialysis catheter Electronically Signed: Yves Lamb MD at 15:04 EDT , Service support , KUB X-Ray 08/02/18 02:10 IMPRESSION: The enteric tube tip lies within the gastric fundus and should be advanced. No bowel obstruction seen. at 0429 Reported and signed by: Wilberto Hernandez MD Electronically Signed: Wilberto Hernandez, at 4:28 EDT Tel , Service support , KUB X-Ray 08/02/18 04:59 IMPRESSION: The enteric tube has been advanced and appears in good position. No bowel obstruction. at 0540 Reported and signed by: Wilberto Hernandez MD Electronically Signed: Wilberto Hernandez, at 5:39 EDT Tel , Service support , Medical Necessity - Tobacco Use Smoking Status: Current some day smoker Assessment/Plan All Active Problems (Last Reviewed 08/01/18 @ 13:11 by Jose J Tucker DO) Hypotension, unspecified (Acute) Severe sepsis (Acute) Pseudomembranous enterocolitis (Acute) Hyperkalemia, diminished renal excretion (Acute) Cholelithiasis (Acute) Infectious encephalopathy (Acute) Uremia of renal origin (Acute) Hyperglycemia due to type 2 diabetes mellitus (Acute) Septic shock (Acute) NICK (acute kidney injury) (Acute) C. difficile colitis (Acute) Hyperkalemia (Acute) Metabolic acidosis (Acute) Hyponatremia (Acute) NSTEMI (non-ST elevated myocardial infarction) (Acute) Gastroenteritis (Acute) NICK (acute kidney injury) (Acute) Hyperkalemia (Acute) Acute renal failure superimposed on stage 4 chronic kidney disease (Acute) Metabolic acidosis (Acute) Acute exacerbation of chronic obstructive pulmonary disease (COPD) (Resolved) Acute respiratory failure with hypoxemia (Resolved) Benign neoplasm of right lung (Resolved) Influenza B (Resolved) Lower GI bleed (Resolved) Severe sepsis (Resolved) Streptococcal pneumonia (Resolved) Urinary retention due to benign prostatic hyperplasia (Resolved) RECOMMENDATIONS: 1. Plan to proceed with a trial of extubation this morning. 2. Once extubated, wean supplemental oxygen to maintain saturations at or above 90%. 3. Perform bedside swallow evaluation and advance diet accordingly. 4. Encourage incentive spirometer use and mobilize patient as tolerated. 5. Continue current antimicrobial regimen. Will obtain consultation from ID, over concerns for recurrent C. difficile colitis. 6. Continue dialysis support per nephrology recommendations. 7. Recommend discontinuation of supplemental IV fluids. IMPRESSIONS: 1. Acute hypoxemic respiratory failure/baseline advanced stage COPD Improved. The patient does have a known history of advanced age COPD and unfortunately continues to smoke cigarettes daily. He was not noted to require supplemental oxygen during his previous 6-minute walk test. Given that he passed his spontaneous breathing trial this morning, the patient will be extubated. Once extubated, wean supplemental oxygen to maintain saturations at or above 90%. Encourage incentive spirometer use and mobilize patient as tolerated. Perform bedside swallow evaluation and advance diet accordingly. 2. Septic shock secondary to possible recurrent C. difficile colitis/gram-negative pneumonia The patient has responded to antimicrobial therapy. He is no longer requiring vasopressor support. We will plan to continue current supportive measures. We will plan to contact the patient's primary care doctor's office to find out if he was in fact tested for C. difficile prior to his arrival to our hospital. In the interim, consultation will be placed to infectious diseases to assist in the management of his recurrent C. difficile colitis. 3. Acute on chronic kidney disease Concerns for ATN in the setting of #2. The patient did have to be dialyzed. Nephrology is following. 4. Non-ST segment elevation OR/history of coronary artery disease status post PCI The patient will be continued on current medical therapy at the discretion of cardiology. Surface echocardiogram is pending. 5. History of obstructive sleep apnea The patient does have a history of obstructive sleep apnea but is noncompliant with the use of nocturnal Pap therapy. 6. Secondary hyperparathyroidism/history of colon cancer/LADARIUS with noncompliance/paroxysmal A. fib/radiculopathy/continuous tobacco dependency Complicates care, management, recovery and prognosis. The patient will require physical therapy evaluation. Nicotine replacement therapy can be offered while he is admitted to the hospital. TIME: 38 minutes of critical care time, independent of procedures, was spent addressing the patient's acute hypoxemic respiratory failure, septic shock, questionable recurrent C. difficile colitis, acute on chronic kidney disease, non-ST segment elevation OR, review of all data and collaboration with the care team. ([id number]) Code Visit 9xxxx: [id number] Critical care first hour
--- NOTE | 2018-08-03 07:08 | NURSING ---
Pt extubated by RT to 2L NC. Pt tolerated well. ETT intact. Cough and gag intact. Minimal secretions. Vocal chords intact.
--- NOTE | 2018-08-03 07:41 | PCM.PN.HOSP ---
Patient Problems: Active and Suspected Problems (Last Reviewed 08/01/18 @ 13:11 by Jose J Tucker DO) Hypotension, unspecified (Acute) Severe sepsis (Acute) Pseudomembranous enterocolitis (Acute) Hyperkalemia, diminished renal excretion (Acute) Cholelithiasis (Acute) Infectious encephalopathy (Acute) Uremia of renal origin (Acute) Hyperglycemia due to type 2 diabetes mellitus (Acute) Septic shock (Acute) NICK (acute kidney injury) (Acute) C. difficile colitis (Acute) Hyperkalemia (Acute) Metabolic acidosis (Acute) Hyponatremia (Acute) NSTEMI (non-ST elevated myocardial infarction) (Acute) Subjective: Patient is a 62-year-old gentleman with multiple comorbidities including previous subtotal colectomy with chronic diarrhea admitted with increasing generalized weakness. Patient was found to be hypotensive and tachypneic. Patient was intubated in the emergency department. Environmental Compliance Inspector assessment of septic shock made admitted to the intensive care unit for subsequent management. Objective: GENERAL: Quite lethargic (just weaned off the vent) HEENT: Atraumatic; moist oral mucosa EYES; Anicteric, Normal Conjunctiva NECK; supple, normal thyroid, RESPIRATORY: Diminished to auscultation bilaterally, CARDIOVASCULAR: Regular S1 S2, no audible murmurs GI: soft, non-tender, normoactive bowel sounds, : No Renal angle tenderness; EXTREMITIES: edema, no clubbing, no cyanosis. MUSCULOSKELETAL: No Joint Tenderness; no muscle waisting NEURO: Awake; no lateralizing signs. SKIN: No Rash PSYCH; Normal affect Vitals/I&O's: Vital Signs Temp Pulse Resp BP Pulse Ox 99.0 F 58 L 12 122/76 H 100 08/03/18 07:00 08/03/18 07:00 08/03/18 07:00 08/03/18 07:00 08/03/18 07:00 Oxygen Flow Rate (L/min) 2 Oxygen Delivery Method Mechanical Ventilator Weight: 102.9 kg Body Mass Index (BMI) 29.3 Intake and Output for Last 24 Hours 08/01/18 08/02/18 08/03/18 23:59 23:59 23:59 Intake Total 1388 / 1388 6270.2 / 6270.2 1639 / 1639 Output Total 225 / 225 1450 / 1450 250 / 250 Balance 1163 / 1163 4820.2 / 4820.2 1389 / 1389 Microbiology Past 72 Hours 08/01/18 10:13 Blood Culture (Wb) - Anticubital Right Blood Culture - Preliminary No growth in 48 hours. 08/03/18 02:30 Stool C. difficile DNA Amplification - Final 08/01/18 14:30 Sputum, Induced/Lukens Gram Stain - Final 08/01/18 14:30 Sputum, Induced/Lukens Respiratory Culture - Preliminary Appears to be normal respiratory genesis. Further studies to follow. Laboratory Results 08/02/18 05:20: Troponin I 5.640 H* 08/02/18 05:28: POC Glucose 209 H 08/02/18 11:00: MRSA (PCR) Negative 08/02/18 13:34: POC Glucose 203 H 08/02/18 13:35: APTT 61.7 H 08/02/18 18:15: Troponin I 3.520 H* 08/02/18 18:15: POC Glucose 178 H 08/02/18 19:45: APTT 50.1 H 08/02/18 21:45: POC Glucose 147 H 08/02/18 23:32: POC Glucose 192 H 08/03/18 02:30: APTT 63.7 H 08/03/18 04:35: WBC 8.9, RBC 3.16 L, Hgb 9.1 L, Hct 27.4 L, MCV 86.7, MCH 28.8, MCHC 33.2, RDW 14.9 H, RDW Differential 46.8 H, Plt Count 157, MPV 12.2 H, Immature Gran % (Auto) 0.200, Neut % (Auto) 58.7, Lymph % (Auto) 18.7 L, [place] % (Auto) 8.7, Eos % (Auto) 13.5 H, Baso % (Auto) 0.2, Absolute Neuts (auto) 5.2, Absolute Lymphs (auto) 1.66, Total Counted Not Reportable 08/03/18 04:35: Sodium 139, Potassium 4.1, Chloride 109 H, Carbon Dioxide 22.0, Anion Gap 8, BUN 52 H, Creatinine 4.71 H, Estim Creat Clear Calc 17.62, Est GFR (MDRD) Af Amer 16 L, Est GFR (MDRD) Non-Af 13 L, BUN/Creatinine Ratio 11.0, Glucose 227 H, Calcium 7.9 L, Total Bilirubin 0.30, AST 25, ALT 22, Alkaline Phosphatase 166 H, Total Protein 5.7 L, Albumin 2.3 L, Globulin 3.4, Albumin/Globulin Ratio 0.7 L 08/03/18 05:18: POC Glucose 202 H Current Medications Aspirin (Aspirin, Baby) 81 mg NG DAILYCM [facility] Last Admin: 08/02/18 10:18 Dose: 81 mg Atorvastatin Calcium (Lipitor) 80 mg PO QHS [facility] Last Admin: 08/02/18 21:55 Dose: 80 mg Chlorhexidine Gluconate () 15 ml PO BID [facility] Last Admin: 08/02/18 21:53 Dose: 15 ml Chlorhexidine Gluconate () 1 each TOPICAL DAILY [facility] Last Admin: 08/03/18 05:52 Dose: 1 each Clopidogrel Bisulfate (Plavix) 75 mg PO DAILY [facility] Last Admin: 08/02/18 10:18 Dose: 75 mg Famotidine (Pepcid) 20 mg GT DAILY [facility] Last Admin: 08/02/18 10:18 Dose: 20 mg Glucagon () 1 mg IM .X1 PRN PRN Reason: Hypoglycemia Metronidazole (Flagyl) 500 mg in 100 mls @ 100 mls/hr IV Q8 [facility] Last Admin: 08/03/18 05:46 Dose: 100 mls/hr Sodium Chloride () 1,000 mls @ 150 mls/hr IV .Q6H40M [facility] Last Admin: 08/03/18 05:52 Dose: 150 mls/hr Fentanyl () 100 mls @ 2.5 mls/hr CONT INF .Q40H [facility] Last Admin: 08/02/18 21:55 Dose: 2.5 mls/hr Heparin Sodium/Dextrose () 25,000 units in 250 mls @ 10 mls/hr IV .Q25H [facility]; Protocol Last Admin: 08/02/18 23:42 Dose: 10 mls/hr Piperacillin Sod/Tazobactam (Sod 3.375 gm/ Sodium Chloride) 50 mls @ 12.5 mls/hr IV Q12 [facility] Last Admin: 08/02/18 21:55 Dose: 12.5 mls/hr Enteral Nutritional Formula (Nepro Carb Steady) 1,000 mls @ 55 mls/hr GT .[id number] [facility] Last Admin: 08/02/18 18:23 Dose: 55 mls/hr Norepinephrine Bitartrate 8 mg (/ Sodium Chloride) 250 mls @ 9.38 mls/hr CONT INF .[id number] [facility] Last Admin: 08/02/18 18:23 Dose: Not Given Amiodarone HCl 360 mg/ (Dextrose) 200 mls @ 16.67 mls/hr CONT INF .Q12H ZACH Dexmedetomidine HCl 1,000 mcg/ (Sodium Chloride) 250 mls @ 27.34 mls/hr CONT INF .Q9H9M [facility] Last Admin: 08/03/18 02:07 Dose: 27.34 mls/hr Insulin Glargine (Lantus (Bkc)) 10 units SC QHS [facility] Last Admin: 08/02/18 21:54 Dose: Not Given Insulin Human Lispro (Humalog Kwikpen (Bkc)) 0 unit SQ Q6 [facility]; Protocol Last Admin: 08/03/18 05:47 Dose: 2 unit Ondansetron HCl (Zofran) 4 mg IV Q8H PRN PRN PRN Reason: NAUSEA/VOMITING Prochlorperazine Edisylate (Compazine Iv) 5 mg IV Q4H PRN PRN PRN Reason: Breakthrough Nausea/Vomiting Sodium Chloride () 5 - 15 ml IV UD PRN PRN Reason: SALINE FLUSH Last Admin: 08/03/18 05:52 Dose: 10 ml Vancomycin HCl () 500 mg NG Q6 [facility] Last Admin: 08/02/18 23:37 Dose: 500 mg Medical Necessity - Tobacco Use Smoking Status: Current some day smoker Assessment/Plan All Active Problems (Last Reviewed 08/01/18 @ 13:11 by Jose J Tucker DO) Hypotension, unspecified (Acute) Severe sepsis (Acute) Pseudomembranous enterocolitis (Acute) Hyperkalemia, diminished renal excretion (Acute) Cholelithiasis (Acute) Infectious encephalopathy (Acute) Uremia of renal origin (Acute) Hyperglycemia due to type 2 diabetes mellitus (Acute) Septic shock (Acute) NICK (acute kidney injury) (Acute) C. difficile colitis (Acute) Hyperkalemia (Acute) Metabolic acidosis (Acute) Hyponatremia (Acute) NSTEMI (non-ST elevated myocardial infarction) (Acute) Gastroenteritis (Acute) NICK (acute kidney injury) (Acute) Hyperkalemia (Acute) Acute renal failure superimposed on stage 4 chronic kidney disease (Acute) Metabolic acidosis (Acute) Acute exacerbation of chronic obstructive pulmonary disease (COPD) (Resolved) Acute respiratory failure with hypoxemia (Resolved) Benign neoplasm of right lung (Resolved) Influenza B (Resolved) Lower GI bleed (Resolved) Severe sepsis (Resolved) Streptococcal pneumonia (Resolved) Urinary retention due to benign prostatic hyperplasia (Resolved) Patient is a 62-year-old gentleman with multiple comorbidities including previous subtotal colectomy with chronic diarrhea admitted with increasing generalized weakness. Patient was found to be hypotensive and tachypneic. Patient was intubated in the emergency department. Environmental Compliance Inspector assessment of septic shock made admitted to the intensive care unit for subsequent management. 1. Acute hypoxic respiratory failure patient was intubated weaned off the vent on the morning of 08/03/2018 2. Shock most likely from severe hypovolemic shock there was an initial presumptive diagnosis of septic shock undetermined etiology there was an initial suspicion of C. difficile however stool for C. difficile came back negative as stated above patient has history of chronic diarrhea from his subtotal colectomy patient urine cultures grew enterococcus however with nonsignificant colonic level. Sputum culture so far positive for gram-negative rods. 3. Acute kidney injury ( superimposed on chronic kidney disease stage IV) patient baseline creatinine is between 2-3 was 11 on admission managed with aggressive IV fluid resuscitation 4. Hyperkalemia secondary to above treated per protocol 5. Elevated Troponin secondary to non-STEMI type II from demand ischemia cardiology on board 6. Chronic diarrhea with In progress stool for Giardia pending 7. Chronic kidney disease stage IV patient presented with worsening kidney function as a result of acute kidney injury 8. History of colon cancer status post subtotal colectomy patient remains in remission 9. Diabetes mellitus type 2 ; Accu-Cheks before meals and at bedtime with sliding scale coverage 10. CAD with previous CABG and subsequent stent placement 11. 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 COPD currently not in exacerbation 13. Obstructive sleep apnea with history of noncompliance with CPAP 14. Paroxysmal atrial fibrillation 15. Dyslipidemia 16. Gout 17. BPH 18. DVT prophylaxis: Heparin Active Medications Aspirin (Aspirin, Baby) 81 mg NG DAILYCM ZACH Last Admin: 08/02/18 10:18 Dose: 81 mg Atorvastatin Calcium (Lipitor) 80 mg PO QHS [facility] Last Admin: 08/02/18 21:55 Dose: 80 mg Chlorhexidine Gluconate () 15 ml PO BID [facility] Last Admin: 08/02/18 21:53 Dose: 15 ml Chlorhexidine Gluconate () 1 each TOPICAL DAILY [facility] Last Admin: 08/03/18 05:52 Dose: 1 each Clopidogrel Bisulfate (Plavix) 75 mg PO DAILY [facility] Last Admin: 08/02/18 10:18 Dose: 75 mg Famotidine (Pepcid) 20 mg GT DAILY [facility] Last Admin: 08/02/18 10:18 Dose: 20 mg Glucagon () 1 mg IM .X1 PRN PRN Reason: Hypoglycemia Metronidazole (Flagyl) 500 mg in 100 mls @ 100 mls/hr IV Q8 [facility] Last Admin: 08/03/18 05:46 Dose: 100 mls/hr Sodium Chloride () 1,000 mls @ 150 mls/hr IV .Q6H40M [facility] Last Admin: 08/03/18 05:52 Dose: 150 mls/hr Fentanyl () 100 mls @ 2.5 mls/hr CONT INF .Q40H [facility] Last Admin: 08/02/18 21:55 Dose: 2.5 mls/hr Heparin Sodium/Dextrose () 25,000 units in 250 mls @ 10 mls/hr IV .Q25H [facility]; Protocol Last Admin: 08/02/18 23:42 Dose: 10 mls/hr Piperacillin Sod/Tazobactam (Sod 3.375 gm/ Sodium Chloride) 50 mls @ 12.5 mls/hr IV Q12 [facility] Last Admin: 08/02/18 21:55 Dose: 12.5 mls/hr Enteral Nutritional Formula (Nepro Carb Steady) 1,000 mls @ 55 mls/hr GT .[id number] [facility] Last Admin: 08/02/18 18:23 Dose: 55 mls/hr Norepinephrine Bitartrate 8 mg (/ Sodium Chloride) 250 mls @ 9.38 mls/hr CONT INF .[id number] [facility] Last Admin: 08/02/18 18:23 Dose: Not Given Amiodarone HCl 360 mg/ (Dextrose) 200 mls @ 16.67 mls/hr CONT INF .Q12H [facility] Dexmedetomidine HCl 1,000 mcg/ (Sodium Chloride) 250 mls @ 27.34 mls/hr CONT INF .Q9H9M [facility] Last Admin: 08/03/18 02:07 Dose: 27.34 mls/hr Insulin Glargine (Lantus (Bkc)) 10 units SC QHS [facility] Last Admin: 08/02/18 21:54 Dose: Not Given Insulin Human Lispro (Humalog Kwikpen (Bk)) 0 unit SQ Q6 [facility]; Protocol Last Admin: 08/03/18 05:47 Dose: 2 unit Ondansetron HCl (Zofran) 4 mg IV Q8H PRN PRN PRN Reason: NAUSEA/VOMITING Prochlorperazine Edisylate (Compazine Iv) 5 mg IV Q4H PRN PRN PRN Reason: Breakthrough Nausea/Vomiting Sodium Chloride () 5 - 15 ml IV UD PRN PRN Reason: SALINE FLUSH Last Admin: 08/03/18 05:52 Dose: 10 ml Vancomycin HCl () 500 mg NG Q6 [facility] Last Admin: 08/02/18 23:37 Dose: 500 mg Clinical Impression(s) from Imaging Studies Chest X-Ray 08/01/18 10:02 IMPRESSION: 1. Right subclavian central venous catheter extends into the right jugular vein/neck. Repositioning recommended. 2. Satisfactory position of endotracheal tube. 3. Bullous and fibrotic changes of the right upper lung field, similar. 4. No airspace consolidation or pneumothorax. Electronically Signed: Yves Lamb MD at 11:45 EDT , Service support , Abdomen Ultrasound 08/01/18 10:31 IMPRESSION: 1. Solitary gallstone without sonographic evidence of acute cholecystitis. 2. Mild hepatomegaly. Electronically Signed: Yves Lamb MD at 12:15 EDT , Service support , KUB X-Ray 08/01/18 14:20 IMPRESSION: Enteric tube extends to the gastric fundus. Electronically Signed: Yves Lamb MD at 15:05 EDT , Service support , Chest X-Ray 08/01/18 14:28 IMPRESSION: Satisfactory position of right subclavian central venous catheter and jugular dialysis catheter Electronically Signed: Yves Lamb MD at 15:04 EDT , Service support , KUB X-Ray 08/02/18 02:10 IMPRESSION: The enteric tube tip lies within the gastric fundus and should be advanced. No bowel obstruction seen. at 0429 Reported and signed by: Wilberto Hernandez MD Electronically Signed: Wilberto Hernandez, at 4:28 EDT Tel , Service support , KUB X-Ray 08/02/18 04:59 IMPRESSION: The enteric tube has been advanced and appears in good position. No bowel obstruction. at 0540 Reported and signed by: Wilberto Hernandez MD Electronically Signed: Wilberto Hernandez, at 5:39 EDT Tel , Service support , Code Visit Inpatient E&M: [id number] [place] [id number]
[2018-08-03 09:13] LABS: Partial Thromboplast Time 66.7 Seconds (24.1-36.2)
--- NOTE | 2018-08-03 09:35 | CASEMGMT ---
RN CM Assessment Presentation: Septic Shock, NICK, Cdiff colitis. Extubated 08/03/18 Intro role of CM and purpose of RN CM assessment. Demographics, PCP and Pharmacy verified. PCP: Dr. Chavez Specialists: Dr. Barlow Preferred Pharmacy: [facility] Retail preferred Insurance: [facility] Prescription Benefit: yes LNOK: Eva Romero Living Arrangements: Lives in one story home, assists with caregiving needs, but is independent in own care needs. Transportation: drives DME: uses cane. Has shower chair, Grab Bars for tub/shower. (Oxygen in past but no equipment in home now). HHC: none Patient DC goals: Home DC PLAN: anticipate home on dc. PT/OT working with pt and ID to see today. Ant FULTONN RN ACM
[2018-08-03 10:51] LABS: Bedside Glucose 141 mg/dL (70-110)
[2018-08-03] MEDS: Clopidogrel Bisulfate 75 MG Tablet PO (12:13)
[2018-08-03] MEDS: Pantoprazole Sodium 40 MG Tablet PO (12:13)
[2018-08-03] MEDS: Aspirin 81 MG TAB.CHEW PO (12:13)
[2018-08-03] MEDS: Amiodarone 200 MG Tablet PO ×3 (12:13→21:39)
[2018-08-03 14:36] LABS: Bedside Glucose 128 mg/dL (70-110)
--- NOTE | 2018-08-03 14:52 | PCM.PN.REN ---
Patient Problems: Active and Suspected Problems (Last Reviewed 08/01/18 @ 13:11 by Jose J Tucker DO) Hypotension, unspecified (Acute) Severe sepsis (Acute) Pseudomembranous enterocolitis (Acute) Hyperkalemia, diminished renal excretion (Acute) Cholelithiasis (Acute) Infectious encephalopathy (Acute) Uremia of renal origin (Acute) Hyperglycemia due to type 2 diabetes mellitus (Acute) Septic shock (Acute) NICK (acute kidney injury) (Acute) C. difficile colitis (Acute) Hyperkalemia (Acute) Metabolic acidosis (Acute) Hyponatremia (Acute) NSTEMI (non-ST elevated myocardial infarction) (Acute) Subjective: continues to have some diarrhea. cdiff negative x1. Renal fxn improving with good UOP. Received 1 dialysis treatment on Friday for hyperkalemia with arrhythmias. cardiology consulted, remains on amiodarone. He started oral vancomycin prior to admit. Denies nausea, vomiting, abdominal pain. Denies chest pain or shortness of breath. - Physical Exam General: Alert, Oriented x3, Cooperative, No apparent distress, - - up to chair tolerating diet Oral: Moist Mucosa Lungs: Rhonchi Cardiovascular: Regular rate Abdomen: Bowel Sounds Present, Soft, Non Tender, Non-Distended Extremities: No edema Skin: No rashes Psych/Mental Status: Normal Affect, Alert and oriented to time, place, person, mood and affect Vital Signs Temp Pulse Resp BP Pulse Ox 97.9 F 68 15 125/57 H 98 08/03/18 10:00 08/03/18 10:00 08/03/18 10:00 08/03/18 10:00 08/03/18 10:00 Oxygen Flow Rate (L/min) 2 Oxygen Delivery Method Room Air Weight: 102.9 kg Body Mass Index (BMI) 29.3 Intake and Output for Last 24 Hours 08/01/18 08/02/18 08/03/18 23:59 23:59 23:59 Intake Total 1388 / 1388 6270.2 / 6270.2 1639 / 1639 Output Total 225 / 225 1450 / 1450 250 / 250 Balance 1163 / 1163 4820.2 / 4820.2 1389 / 1389 Microbiology Past 72 Hours 08/02/18 04:20 Urine Culture - Preliminary Urine Catheter - Catheter GPC Poss Enterococcus sp 08/01/18 14:30 Gram Stain - Final Sputum, Induced/Lukens Respiratory Culture - Preliminary Gram negative tomas 08/01/18 10:13 Blood Culture - Preliminary Blood Culture (Wb) - Anticubital Right No growth in 48 hours. 08/03/18 02:30 C. difficile DNA Amplification - Final Stool Laboratory Tests Past 24 Hrs 08/02/18 08/02/18 08/02/18 11:00 18:15 19:45 WBC RBC Hgb Hct MCV MCH MCHC RDW RDW Differential Plt Count MPV Immature Gran % (Auto) Neut % (Auto) Lymph % (Auto) [place] % (Auto) Eos % (Auto) Baso % (Auto) Absolute Neuts (auto) Absolute Lymphs (auto) Total Counted APTT 50.1 H Sodium Potassium Chloride Carbon Dioxide Anion Gap BUN Creatinine Estim Creat Clear Calc Est GFR (MDRD) Af Amer Est GFR (MDRD) Non-Af BUN/Creatinine Ratio Glucose Calcium Total Bilirubin AST ALT Alkaline Phosphatase Troponin I 3.520 H* Total Protein Albumin Globulin Albumin/Globulin Ratio MRSA (PCR) Negative 08/03/18 08/03/18 08/03/18 02:30 04:35 04:35 WBC 8.9 RBC 3.16 L Hgb 9.1 L Hct 27.4 L MCV 86.7 MCH 28.8 MCHC 33.2 RDW 14.9 H RDW Differential 46.8 H Plt Count 157 MPV 12.2 H Immature Gran % (Auto) 0.200 Neut % (Auto) 58.7 Lymph % (Auto) 18.7 L [place] % (Auto) 8.7 Eos % (Auto) 13.5 H Baso % (Auto) 0.2 Absolute Neuts (auto) 5.2 Absolute Lymphs (auto) 1.66 Total Counted Not Reportable APTT 63.7 H Sodium 139 Potassium 4.1 Chloride 109 H Carbon Dioxide 22.0 Anion Gap 8 BUN 52 H Creatinine 4.71 H Estim Creat Clear Calc 17.62 Est GFR (MDRD) Af Amer 16 L Est GFR (MDRD) Non-Af 13 L BUN/Creatinine Ratio 11.0 Glucose 227 H Calcium 7.9 L Total Bilirubin 0.30 AST 25 ALT 22 Alkaline Phosphatase 166 H Troponin I Total Protein 5.7 L Albumin 2.3 L Globulin 3.4 Albumin/Globulin Ratio 0.7 L MRSA (PCR) 08/03/18 08:50 WBC RBC Hgb Hct MCV MCH MCHC RDW RDW Differential Plt Count MPV Immature Gran % (Auto) Neut % (Auto) Lymph % (Auto) [place] % (Auto) Eos % (Auto) Baso % (Auto) Absolute Neuts (auto) Absolute Lymphs (auto) Total Counted APTT 66.7 H Sodium Potassium Chloride Carbon Dioxide Anion Gap BUN Creatinine Estim Creat Clear Calc Est GFR (MDRD) Af Amer Est GFR (MDRD) Non-Af BUN/Creatinine Ratio Glucose Calcium Total Bilirubin AST ALT Alkaline Phosphatase Troponin I Total Protein Albumin Globulin Albumin/Globulin Ratio MRSA (PCR) POC Glucose 08/03/18 08/03/18 08/03/18 14:06 10:43 05:18 POC Glucose 128 H 141 H 202 H 08/02/18 08/02/18 08/02/18 23:32 21:45 18:15 POC Glucose 192 H 147 H 178 H Medical Necessity - Tobacco Use Smoking Status: Current some day smoker Assessment/Plan All Active Problems (Last Reviewed 08/01/18 @ 13:11 by Jose J Tucker DO) Hypotension, unspecified (Acute) Severe sepsis (Acute) Pseudomembranous enterocolitis (Acute) Hyperkalemia, diminished renal excretion (Acute) Cholelithiasis (Acute) Infectious encephalopathy (Acute) Uremia of renal origin (Acute) Hyperglycemia due to type 2 diabetes mellitus (Acute) Septic shock (Acute) NICK (acute kidney injury) (Acute) C. difficile colitis (Acute) Hyperkalemia (Acute) Metabolic acidosis (Acute) Hyponatremia (Acute) NSTEMI (non-ST elevated myocardial infarction) (Acute) Gastroenteritis (Acute) NICK (acute kidney injury) (Acute) Hyperkalemia (Acute) Acute renal failure superimposed on stage 4 chronic kidney disease (Acute) Metabolic acidosis (Acute) Acute exacerbation of chronic obstructive pulmonary disease (COPD) (Resolved) Acute respiratory failure with hypoxemia (Resolved) Benign neoplasm of right lung (Resolved) Influenza B (Resolved) Lower GI bleed (Resolved) Severe sepsis (Resolved) Streptococcal pneumonia (Resolved) Urinary retention due to benign prostatic hyperplasia (Resolved) 1. Shock sepsis requiring pressor support, iv hydration. Tolerating diet well. 2. Acute kidney injury likely due to shock sepsis, ATN. BUN 104 with creatinine 11.7 on admit. Creatinine improved to 4.7 today with good UOP. Baseline creatinine 2-3. No further dialysis needed. 3. Acute hyperkalemia with cardiac arrhythmia. resolved 4. History of C. difficile colitis continue to treat empirically for now. Leukocytosis without fever. Enterococcus in urine, GNR in sputum 5. Metabolic acidosis resolved 6. Acute respiratory failure with hypoxemia extubated today 7. Acute metabolic encephalopathy resolved
[2018-08-03] MEDS: BENZOCAINE/MENTHOL 1 LOZENGE MUCOUS MEM ×2 (16:31→21:39)
[2018-08-03 16:52] LABS: Partial Thromboplast Time 66.6 Seconds (24.1-36.2)
--- NOTE | 2018-08-03 20:13 | PCM.HP.ID ---
Problem List (1) Septic shock Status: Acute Reason for Consult: septic shock Consulted by: Dr. Cha History of Present Illness: The patient is a 62 year old M with h/o cdiff about 1-2 months ago, treated with po vanc with resolution of sx. Has h/o partial colectomy, so chronic diarrhea. Had worsening around 07/29, called PCP office, took one dose of po vanc and gave stool sample. He does not remember much of what happened after that, but had to be taken to ED with hypothermia, SOB, hypotension, severe NICK, and mottling. Intubated, admitted to icu, pressors started. On zosyn, po vanc, and iv flagyl for suspected cdiff colitis. Now off vent, feeling ok, no abd pain, no blood in stool, no SOB, no cough. Full ROS performed and neg except as noted above. - Medical History Past Medical History (Chronic Problems): Chronic Problems (Last Reviewed 08/01/18 @ 13:11 by Jose J Tucker DO) Acute renal failure superimposed on stage 3 chronic kidney disease (Chronic) S/P PTCA (percutaneous transluminal coronary angioplasty) (Chronic) HLD (hyperlipidemia) (Chronic) Clostridium difficile colitis (Chronic) Chronic hypoxemic respiratory failure (Chronic) 2-3 LPM chronically Colon cancer (Chronic) had surgery with no chemo or radiation at [facility] fall Status post colon resection (Chronic) subtotal for colon CA in the fall at [facility] Hemorrhoids (Chronic) CKD (chronic kidney disease) stage 4, GFR 15-29 ml/min (Chronic) Nicotine dependence, cigarettes, in remission (Chronic) Stage 3 severe COPD by GOLD classification (Chronic) FEV1 37% predicted Heme + stool (Chronic) Anemia of chronic renal failure (Chronic) H/O pneumonectomy (Chronic) Right LL lobectomy due to benign tumor Peripheral vascular disease (Chronic) Radiculopathy affecting upper extremity (Chronic) Iron deficiency anemia (Chronic) Increased PTH level (Chronic) secondary to CRF stage4 Low vitamin D level (Chronic) Paroxysmal atrial fibrillation (Chronic) Nocturnal hypoxia (Chronic) Noncompliance with CPAP treatment (Chronic) LADARIUS (obstructive sleep apnea) (Chronic) Gout (Chronic) History of tobacco abuse (Chronic) quit in April 2017 Hx of CABG (Chronic) x3 2003 Coronary artery disease (Chronic) has had 3 stents.....the last stent he thinks in 2008 Hypertension (Chronic) Diabetes mellitus type 2 in obese (Chronic) Allergies/Adverse Reactions: Allergies No Known Allergies Allergy (Verified 08/01/18 09:50) Home Medications: Ambulatory Orders Medication Instructions Recorded Aspirin 81 mg PO DAILY 05/14/17 Nitroglycerin (INPATIENT USE) 0.4 mg SUBLINGUAL Q5M PRN 05/14/17 [Nitrostat] Oxycodone [Oxyir] 5 mg PO BID PRN PRN 05/14/17 Simvastatin 80 mg PO QHS 05/14/17 Oxygen, Home [Home Oxygen] 2 - 3 lpm NASAL UD #1 unit 05/18/17 Albuterol Aerosols [Ventolin 2.5 mg INHALATION Q4H PRN PRN 09/15/17 Aerosols] Allopurinol [Zyloprim] 300 mg PO DAILY 09/15/17 Cilostazol 50 mg PO BID 09/15/17 Colchicine 0.6 mg PO TID PRN 09/15/17 Ergocalciferol [Vitamin D] 50,000 unit PO Q7D 09/15/17 Finasteride [Proscar] 5 mg PO DAILY 09/15/17 Isosorbide Mononitrate [Imdur] 30 mg PO DAILY 09/15/17 Metoprolol(XL)Succ [Toprol Xl 50 mg PO DAILY 09/15/17 (Beta Vanesa)] Nebulizer [Aeroneb Go Nebulizer] 1 ea MC 4X/DAY 09/15/17 Pantoprazole Sodium [Protonix] 40 mg PO DAILY 09/15/17 Tamsulosin HCl [Flomax] 0.4 mg PO DAILY@1730 09/15/17 hydrALAZINE [Apresoline] 25 mg PO TID 09/15/17 umeclidinium 62.5 mcg/actuation 1 inh INHALATION QDAY #30 ea 04/22/18 blister powder for inhalation Albuterol Inhaler [Ventolin Hfa] 1 - 2 puff INHALATION Q4H PRN PRN 05/12/18 Diazepam [Valium] 5 mg PO DAILY PRN 05/12/18 Insulin Aspart [Novolog Flexpen] 5 units SC TIDCM #0 05/16/18 Insulin Degludec [Tresiba 20 unit SC QHS #0 05/16/18 Flextouch U-100] Sodium Bicarbonate 650 mg PO TID #90 tablet 06/03/18 Vancomcyin 125mg/5mL PO Liquid 125 mg PO Q6 #28 po.syringe 06/03/18 - Social History SMOKING STATUS:: Current every day smoker Vital Signs Temp Pulse Resp BP Pulse Ox 97.9 F 98 17 170/89 H 99 08/03/18 17:00 08/03/18 19:00 08/03/18 19:00 08/03/18 19:00 08/03/18 19:00 Oxygen Flow Rate (L/min) 2 Oxygen Delivery Method Room Air Weight: 102.9 kg Body Mass Index (BMI) 29.3 Microbiology Past 72 Hours 08/02/18 04:20 Urine Culture - Preliminary Urine Catheter - Catheter GPC Poss Enterococcus sp 08/01/18 14:30 Gram Stain - Final Sputum, Induced/Lukens Respiratory Culture - Preliminary Gram negative tomas 08/01/18 10:13 Blood Culture - Preliminary Blood Culture (Wb) - Anticubital Right No growth in 48 hours. 08/03/18 02:30 C. difficile DNA Amplification - Final Stool Laboratory Tests Past 24 Hrs 08/02/18 08/03/18 08/03/18 19:45 02:30 04:35 WBC 8.9 RBC 3.16 L Hgb 9.1 L Hct 27.4 L MCV 86.7 MCH 28.8 MCHC 33.2 RDW 14.9 H RDW Differential 46.8 H Plt Count 157 MPV 12.2 H Immature Gran % (Auto) 0.200 Neut % (Auto) 58.7 Lymph % (Auto) 18.7 L [place] % (Auto) 8.7 Eos % (Auto) 13.5 H Baso % (Auto) 0.2 Absolute Neuts (auto) 5.2 Absolute Lymphs (auto) 1.66 Total Counted Not Reportable APTT 50.1 H 63.7 H Sodium Potassium Chloride Carbon Dioxide Anion Gap BUN Creatinine Estim Creat Clear Calc Est GFR (MDRD) Af Amer Est GFR (MDRD) Non-Af BUN/Creatinine Ratio Glucose Calcium Total Bilirubin AST ALT Alkaline Phosphatase Total Protein Albumin Globulin Albumin/Globulin Ratio 08/03/18 08/03/18 08/03/18 04:35 08:50 16:20 WBC RBC Hgb Hct MCV MCH MCHC RDW RDW Differential Plt Count MPV Immature Gran % (Auto) Neut % (Auto) Lymph % (Auto) [place] % (Auto) Eos % (Auto) Baso % (Auto) Absolute Neuts (auto) Absolute Lymphs (auto) Total Counted APTT 66.7 H 66.6 H Sodium 139 Potassium 4.1 Chloride 109 H Carbon Dioxide 22.0 Anion Gap 8 BUN 52 H Creatinine 4.71 H Estim Creat Clear Calc 17.62 Est GFR (MDRD) Af Amer 16 L Est GFR (MDRD) Non-Af 13 L BUN/Creatinine Ratio 11.0 Glucose 227 H Calcium 7.9 L Total Bilirubin 0.30 AST 25 ALT 22 Alkaline Phosphatase 166 H Total Protein 5.7 L Albumin 2.3 L Globulin 3.4 Albumin/Globulin Ratio 0.7 L - Other Studies Radiology: [] reviewed Other Studies: [] Route of nutrition/ use of supplements: [] Nutritional Intake: [] IV Site: [] Hoff Catheter: [] - Physical Exam General: Alert, Oriented x3, Cooperative, No apparent distress HEENT: Atraumatic, PERRLA, EOMI Neck: Supple, No Nodes Lungs: - - some end expiratory wheezing Cardiovascular: Regular rate, Regular Rhythm, No murmurs Abdomen: Soft, Non Tender, Non-Distended Extremities: No edema Skin: No rashes IV Site: Central Line, without redness Musculoskeletal: No Tenderness to Palpation of Joints or Extremities Neurological: Cranial nerves II-XII grossly intact - Assessment/Plan Antibiotics: [] Assessment/Plan: [] Active and Suspected Problems (Last Reviewed 08/01/18 @ 13:11 by Jose J Tucker DO) Hypotension, unspecified (Acute) Severe sepsis (Acute) Pseudomembranous enterocolitis (Acute) Hyperkalemia, diminished renal excretion (Acute) Cholelithiasis (Acute) Infectious encephalopathy (Acute) Uremia of renal origin (Acute) Hyperglycemia due to type 2 diabetes mellitus (Acute) Septic shock (Acute) NICK (acute kidney injury) (Acute) C. difficile colitis (Acute) Hyperkalemia (Acute) Metabolic acidosis (Acute) Hyponatremia (Acute) NSTEMI (non-ST elevated myocardial infarction) (Acute) septic shock - unclear cause. Cdiff here and at PCP's office was neg, so ok to stop flagyl and po vanc. Cont zosyn. Ucx with some enterococcus, sputum with some GNR. Will order stool pcr panel. Will follow, thank you, d/w nursing
[2018-08-03] MEDS: oxyCODONE 5 MG Tablet PO (21:39)
[2018-08-03] MEDS: hydrALAZINE 25 MG Tablet PO (21:40)
[2018-08-03] MEDS: Metoprolol(XL)Succ 50 MG Tablet PO (21:40)
[2018-08-03] MEDS: Insulin Lispro 100 UNIT/ML INSULN.PEN SC (21:46)
[2018-08-03 22:06] LABS: Bedside Glucose 154 mg/dL (70-110)
[2018-08-03] MEDS: Atorvastatin Calcium 80 MG Tablet PO (22:42)
[2018-08-04] VITALS (24 sets, daily range): BP systolic 142–191; BP diastolic 61–92; PULSE 74–90; RESP 15–23; TEMP 36.5–37.6; O2SAT 93–99
[2018-08-04 04:55] LABS: Absolute Lymphocyte Count 1.78 X10^3/ul (0.83-4.51); Absolute Neutrophil Count 5.1 X10^3/uL (2.0-7.7); Basophil# 0.01 X10^3/uL; Basophil% 0.1 % (0-1); Eosinophil# 1.19 X10^3/uL; Eosinophils% 13.4 % (0-5); Hematocrit 27.5 % (40-54); Lymphocyte # 1.78 X10^3/ul (4.0); Lymphocyte % 20.1 % (19-41); Mean Corp Hgb Conc 32.7 g/gl (32-36); Mean Corpuscular Hgb 28.4 pg (27.0-32.0); Mean Corpuscular Volume 86.8 fL (80-94); Mean Platelet Vol. 12.2 fl (6.2-12.0); Monocyte# 0.76 X10^3/uL; Monocyte% 8.6 % (0-10); Neutrophil # 5.08 X10^3/uL (2.7-7.7); Neutrophil % 57.3 % (47-70); Platelet Count 170 K/mm3 (150-450); RBC Distribution Width CV 14.6 % (11.6-14.6); RBC Distribution Width SD 44.5 fl (35.1-43.9); Red Blood Count 3.17 M/mm3 (4.6-6.2); White Blood Count 8.9 K/mm3 (4.4-11.0)
[2018-08-04 04:58] LABS: POSITIVE COUNT NO; POSITIVE DIFFERENTIAL NO; POSITIVE MORPHOLOGY NO
[2018-08-04 05:11] LABS: ALB/GLOB Ratio 0.7 RATIO (0.9-2.4); AST(SGOT) 19 U/L (15-37); Alanine Aminotransfer ALT/SGPT 21 U/L (16-61); Albumin, Serum 2.4 g/dL (3.2-5.0); Alkaline Phosphatase 153 U/L (45-117); Anion Gap 9 (5-15); BUN 56 mg/dL (7-18); BUN/Creat Ratio 13.1 RATIO (10-20); Calcium,Total 8.2 mg/dL (8.5-10.1); Chloride 113 mmol/L (98-107); Creatinine, Serum 4.29 mg/dL (0.70-1.30); EST Glomerular Filtration Rate 15 mL/min (>60); Est Glom Filt Rate - Afr Amer 18 mL/min (>60); Estimated Creatinine Clearance 19.34 ml/min; Globulin 3.6 g/dL (2.2-4.2); Glucose 160 mg/dL (74-106); Potassium 4.1 mmol/L (3.5-5.1); Sodium Level 145 mmol/L (136-145)
--- NOTE | 2018-08-04 06:34 | PN_ITS ---
Subjective: The patient was seen and examined at the bedside this morning. Events from the last 24 hours have been reviewed. The patient is currently afebrile, hemodynamically stable and maintaining appropriate oxygen saturations on room air. No overnight events were noted by the nursing staff. Some of the patient's home blood pressure medications were restarted yesterday. The patient's C. difficile precautions were discontinued yesterday following evaluation by infectious diseases. We did receive documentation from the patient's primary care provider that his C. difficile testing prior to admission to the hospital was in fact negative. Objective: The patient's most recent lab work, culture data and imaging studies have all been personally reviewed. C. difficile was negative. Surface echocardiogram dated April 2017 revealed normal LV size and thickness with an ejection fraction of 65% and stage II diastolic dysfunction. The patient has known obstructive sleep apnea and is currently prescribed nocturnal bilevel therapy with a pressure support of 16/10 centimeters of water. The patient also has known COPD with an FEV1 of 36% of predicted. Sputum Gram stain was positive for the presence of a gram-negative tomas. Urine culture is growing possible enterococcus. General: Alert, Oriented x3, Cooperative, No apparent distress HEENT: Atraumatic, PERRLA, Normocephalic Oral: No Gingival or Mucosal Lesions/ Ulcerations Neck: Supple, No Nodes, Trachea Midline Lungs: No rhonchi, No wheeze, No rales, Diminished Cardiovascular: Regular rate, Regular Rhythm, Normal S1, Normal S2, No murmurs, - - NSR on telemetry Abdomen: Bowel Sounds Present, Soft, Non Tender, Non-Distended Extremities: No clubbing, No cyanosis, No edema Skin: - - No significant change from previous Musculoskeletal: No Tenderness to Palpation of Joints or Extremities Lymphatic: No Cervical, Supraclavicular, or Inguinal Adenopathy Neurological: Cranial nerves II-XII grossly intact, Neuro grossly intact Psych/Mental Status: Alert and oriented to time, place, person, mood and affect Vital Signs Temp Pulse Resp BP Pulse Ox 98.8 F 75 20 H 160/73 H 95 08/04/18 04:00 08/04/18 06:00 08/04/18 06:00 08/04/18 06:00 08/04/18 06:00 Oxygen Flow Rate (L/min) 2 Oxygen Delivery Method Room Air Weight: 224 lb 10.417 oz Body Mass Index (BMI) 29.3 Intake and Output for Last 24 Hours 08/02/18 08/03/18 08/04/18 23:59 23:59 23:59 Intake Total 6270.2 / 6270.2 3922 / 3922 50 / 50 Output Total 1450 / 1450 2950 / 2950 375 / 375 Balance 4820.2 / 4820.2 972 / 972 -325 / -325 Labs (Last 48 Hours) 08/02/18 08/02/18 08/02/18 05:20 05:20 05:28 WBC RBC Hgb Hct MCV MCH MCHC RDW RDW Differential Plt Count MPV Immature Gran % (Auto) Neut % (Auto) Lymph % (Auto) [place] % (Auto) Eos % (Auto) Baso % (Auto) Absolute Neuts (auto) Absolute Lymphs (auto) Total Counted APTT Sodium 138 Potassium 3.8 Chloride 102 Carbon Dioxide 23.0 Anion Gap 13 BUN 50 H Creatinine 5.47 H Estim Creat Clear Calc 15.17 Est GFR (MDRD) Af Amer 14 L Est GFR (MDRD) Non-Af 11 L BUN/Creatinine Ratio 9.1 L Glucose 219 H Calcium 7.7 L Total Bilirubin 0.60 AST 34 ALT 24 Alkaline Phosphatase 148 H Troponin I 5.640 H* Total Protein 6.1 L Albumin 2.5 L Globulin 3.6 Albumin/Globulin Ratio 0.7 L MRSA (PCR) POC Glucose 209 H 08/02/18 08/02/18 08/02/18 11:00 13:34 13:35 WBC RBC Hgb Hct MCV MCH MCHC RDW RDW Differential Plt Count MPV Immature Gran % (Auto) Neut % (Auto) Lymph % (Auto) [place] % (Auto) Eos % (Auto) Baso % (Auto) Absolute Neuts (auto) Absolute Lymphs (auto) Total Counted APTT 61.7 H Sodium Potassium Chloride Carbon Dioxide Anion Gap BUN Creatinine Estim Creat Clear Calc Est GFR (MDRD) Af Amer Est GFR (MDRD) Non-Af BUN/Creatinine Ratio Glucose Calcium Total Bilirubin AST ALT Alkaline Phosphatase Troponin I Total Protein Albumin Globulin Albumin/Globulin Ratio MRSA (PCR) Negative POC Glucose 203 H 08/02/18 08/02/18 08/02/18 18:15 18:15 19:45 WBC RBC Hgb Hct MCV MCH MCHC RDW RDW Differential Plt Count MPV Immature Gran % (Auto) Neut % (Auto) Lymph % (Auto) [place] % (Auto) Eos % (Auto) Baso % (Auto) Absolute Neuts (auto) Absolute Lymphs (auto) Total Counted APTT 50.1 H Sodium Potassium Chloride Carbon Dioxide Anion Gap BUN Creatinine Estim Creat Clear Calc Est GFR (MDRD) Af Amer Est GFR (MDRD) Non-Af BUN/Creatinine Ratio Glucose Calcium Total Bilirubin AST ALT Alkaline Phosphatase Troponin I 3.520 H* Total Protein Albumin Globulin Albumin/Globulin Ratio MRSA (PCR) POC Glucose 178 H 08/02/18 08/02/18 08/03/18 21:45 23:32 02:30 WBC RBC Hgb Hct MCV MCH MCHC RDW RDW Differential Plt Count MPV Immature Gran % (Auto) Neut % (Auto) Lymph % (Auto) [place] % (Auto) Eos % (Auto) Baso % (Auto) Absolute Neuts (auto) Absolute Lymphs (auto) Total Counted APTT 63.7 H Sodium Potassium Chloride Carbon Dioxide Anion Gap BUN Creatinine Estim Creat Clear Calc Est GFR (MDRD) Af Amer Est GFR (MDRD) Non-Af BUN/Creatinine Ratio Glucose Calcium Total Bilirubin AST ALT Alkaline Phosphatase Troponin I Total Protein Albumin Globulin Albumin/Globulin Ratio MRSA (PCR) POC Glucose 147 H 192 H 08/03/18 08/03/18 08/03/18 04:35 04:35 05:18 WBC 8.9 RBC 3.16 L Hgb 9.1 L Hct 27.4 L MCV 86.7 MCH 28.8 MCHC 33.2 RDW 14.9 H RDW Differential 46.8 H Plt Count 157 MPV 12.2 H Immature Gran % (Auto) 0.200 Neut % (Auto) 58.7 Lymph % (Auto) 18.7 L [place] % (Auto) 8.7 Eos % (Auto) 13.5 H Baso % (Auto) 0.2 Absolute Neuts (auto) 5.2 Absolute Lymphs (auto) 1.66 Total Counted Not Reportable APTT Sodium 139 Potassium 4.1 Chloride 109 H Carbon Dioxide 22.0 Anion Gap 8 BUN 52 H Creatinine 4.71 H Estim Creat Clear Calc 17.62 Est GFR (MDRD) Af Amer 16 L Est GFR (MDRD) Non-Af 13 L BUN/Creatinine Ratio 11.0 Glucose 227 H Calcium 7.9 L Total Bilirubin 0.30 AST 25 ALT 22 Alkaline Phosphatase 166 H Troponin I Total Protein 5.7 L Albumin 2.3 L Globulin 3.4 Albumin/Globulin Ratio 0.7 L MRSA (PCR) POC Glucose 202 H 08/03/18 08/03/18 08/03/18 08:50 10:43 14:06 WBC RBC Hgb Hct MCV MCH MCHC RDW RDW Differential Plt Count MPV Immature Gran % (Auto) Neut % (Auto) Lymph % (Auto) [place] % (Auto) Eos % (Auto) Baso % (Auto) Absolute Neuts (auto) Absolute Lymphs (auto) Total Counted APTT 66.7 H Sodium Potassium Chloride Carbon Dioxide Anion Gap BUN Creatinine Estim Creat Clear Calc Est GFR (MDRD) Af Amer Est GFR (MDRD) Non-Af BUN/Creatinine Ratio Glucose Calcium Total Bilirubin AST ALT Alkaline Phosphatase Troponin I Total Protein Albumin Globulin Albumin/Globulin Ratio MRSA (PCR) POC Glucose 141 H 128 H 08/03/18 08/03/18 08/04/18 16:20 21:46 04:45 WBC 8.9 RBC 3.17 L Hgb 9.0 L Hct 27.5 L MCV 86.8 MCH 28.4 MCHC 32.7 RDW 14.6 RDW Differential 44.5 H Plt Count 170 MPV 12.2 H Immature Gran % (Auto) 0.500 Neut % (Auto) 57.3 Lymph % (Auto) 20.1 [place] % (Auto) 8.6 Eos % (Auto) 13.4 H Baso % (Auto) 0.1 Absolute Neuts (auto) 5.1 Absolute Lymphs (auto) 1.78 Total Counted Not Reportable APTT 66.6 H Sodium Potassium Chloride Carbon Dioxide Anion Gap BUN Creatinine Estim Creat Clear Calc Est GFR (MDRD) Af Amer Est GFR (MDRD) Non-Af BUN/Creatinine Ratio Glucose Calcium Total Bilirubin AST ALT Alkaline Phosphatase Troponin I Total Protein Albumin Globulin Albumin/Globulin Ratio MRSA (PCR) POC Glucose 154 H 08/04/18 04:45 WBC RBC Hgb Hct MCV MCH MCHC RDW RDW Differential Plt Count MPV Immature Gran % (Auto) Neut % (Auto) Lymph % (Auto) [place] % (Auto) Eos % (Auto) Baso % (Auto) Absolute Neuts (auto) Absolute Lymphs (auto) Total Counted APTT Sodium 145 Potassium 4.1 Chloride 113 H Carbon Dioxide 23.0 Anion Gap 9 BUN 56 H Creatinine 4.29 H Estim Creat Clear Calc 19.34 Est GFR (MDRD) Af Amer 18 L Est GFR (MDRD) Non-Af 15 L BUN/Creatinine Ratio 13.1 Glucose 160 H Calcium 8.2 L Total Bilirubin 0.30 AST 19 ALT 21 Alkaline Phosphatase 153 H Troponin I Total Protein 6.0 L Albumin 2.4 L Globulin 3.6 Albumin/Globulin Ratio 0.7 L MRSA (PCR) POC Glucose Microbiology 08/02/18 04:20 Urine Catheter - Catheter Urine Culture - Preliminary GPC Poss Enterococcus sp 08/01/18 14:30 Sputum, Induced/Lukens Gram Stain - Final 08/01/18 14:30 Sputum, Induced/Lukens Respiratory Culture - Preliminary Gram negative tomas 08/01/18 10:13 Blood Culture (Wb) - Anticubital Right Blood Culture - Preliminary No growth in 48 hours. 08/03/18 02:30 Stool C. difficile DNA Amplification - Final Clinical Impression(s) from Imaging Studies Chest X-Ray 08/01/18 10:02 IMPRESSION: 1. Right subclavian central venous catheter extends into the right jugular vein/neck. Repositioning recommended. 2. Satisfactory position of endotracheal tube. 3. Bullous and fibrotic changes of the right upper lung field, similar. 4. No airspace consolidation or pneumothorax. Electronically Signed: Yves Lamb MD at 11:45 EDT , Service support , Abdomen Ultrasound 08/01/18 10:31 IMPRESSION: 1. Solitary gallstone without sonographic evidence of acute cholecystitis. 2. Mild hepatomegaly. Electronically Signed: Yves Lamb MD at 12:15 EDT , Service support , KUB X-Ray 08/01/18 14:20 IMPRESSION: Enteric tube extends to the gastric fundus. Electronically Signed: Yves Lamb MD at 15:05 EDT , Service support , Chest X-Ray 08/01/18 14:28 IMPRESSION: Satisfactory position of right subclavian central venous catheter and jugular dialysis catheter Electronically Signed: Yves Lamb MD at 15:04 EDT , Service support , KUB X-Ray 08/02/18 02:10 IMPRESSION: The enteric tube tip lies within the gastric fundus and should be advanced. No bowel obstruction seen. at 0429 Reported and signed by: Wilberto Hernnadez MD Electronically Signed: Wilberto Hernandez, at 4:28 EDT Tel , Service support , KUB X-Ray 08/02/18 04:59 IMPRESSION: The enteric tube has been advanced and appears in good position. No bowel obstruction. at 0540 Reported and signed by: Wilberto Hernandez MD Electronically Signed: Wilberto Hernandez, at 5:39 EDT Tel , Service support , Medical Necessity - Tobacco Use Smoking Status: Current some day smoker Assessment/Plan All Active Problems (Last Reviewed 08/01/18 @ 13:11 by Jose J Tucker DO) Hypotension, unspecified (Acute) Severe sepsis (Acute) Pseudomembranous enterocolitis (Acute) Hyperkalemia, diminished renal excretion (Acute) Cholelithiasis (Acute) Infectious encephalopathy (Acute) Uremia of renal origin (Acute) Hyperglycemia due to type 2 diabetes mellitus (Acute) Septic shock (Acute) NICK (acute kidney injury) (Acute) C. difficile colitis (Acute) Hyperkalemia (Acute) Metabolic acidosis (Acute) Hyponatremia (Acute) NSTEMI (non-ST elevated myocardial infarction) (Acute) Gastroenteritis (Acute) NICK (acute kidney injury) (Acute) Hyperkalemia (Acute) Acute renal failure superimposed on stage 4 chronic kidney disease (Acute) Metabolic acidosis (Acute) Acute exacerbation of chronic obstructive pulmonary disease (COPD) (Resolved) Acute respiratory failure with hypoxemia (Resolved) Benign neoplasm of right lung (Resolved) Influenza B (Resolved) Lower GI bleed (Resolved) Severe sepsis (Resolved) Streptococcal pneumonia (Resolved) Urinary retention due to benign prostatic hyperplasia (Resolved) RECOMMENDATIONS: 1. Continue empiric antimicrobial coverage, pending finalized infectious work- up. 2. Encourage incentive spirometer use and mobilize patient as tolerated. 3. Perform walking oximetry study prior to consideration for discharge from the hospital. 4. The patient will need to be scheduled a follow-up office visit in the pulmonary medicine clinic within 2 weeks of discharge. IMPRESSIONS: 1. Acute hypoxemic respiratory failure/baseline advanced stage COPD Improved. The patient does have a known history of advanced age COPD and unfortunately continues to smoke cigarettes daily. He was not noted to require supplemental oxygen during his previous 6-minute walk test. The patient may have experienced an exacerbation of his underlying obstructive lung disease sec ondary to gram-negative pneumonia. He was able to be successfully extubated on August 03 and has been subsequently weaned to room air. The patient will remain on empiric antimicrobials accordingly. Encourage incentive spirometer use and mobilize patient as tolerated. 2. Septic shock secondary to possible gram-negative pneumonia The patient initially presented to the hospital with diarrhea felt to be secondary to recurrent C. difficile colitis. However, testing by his PCP prior to his hospital admission along with testing performed here upon admission to the hospital was negative for C. difficile. Therefore, empiric treatment with p.o. vancomycin and IV Flagyl was stopped. Infectious diseases is currently following. Stool PCR panel is currently pending. The patient does currently have a gram-negative isolated from his sputum, for which he will be continued on antibiotics accordingly. 3. Acute on chronic kidney disease Concerns for ATN in the setting of #2. The patient did have to be dialyzed. Nephrology is following. Renal function has improved without further indication for hemodialysis. 4. Non-ST segment elevation MS/history of coronary artery disease status post PCI The patient will be continued on current medical therapy at the discretion of cardiology. Surface echocardiogram revealed an ejection fraction of 50% with stage I diastolic dysfunction. 5. History of obstructive sleep apnea The patient does have a history of obstructive sleep apnea but is noncompliant with the use of nocturnal Pap therapy. 6. Secondary hyperparathyroidism/history of colon cancer/LADARIUS with noncompliance/paroxysmal A. fib/hypertension/continuous tobacco dependency Complicates care, management, recovery and prognosis. Nicotine replacement therapy can be offered while he is admitted to the hospital. The patient may re quire additional titration of his home BP meds, as his outpatient SHAR inhibitor remains on hold due to renal insufficiency. This note was generated with [employer] dictation software. It may contain incorrect words, spelling, and punctuation that were not noted in checking the note before signing. DISPOSITION: The patient is medically stable for transfer out of the intensive care unit. Code Visit Inpatient E&M: 11308 [facility] L3
[2018-08-04] MEDS: Amiodarone 200 MG Tablet PO ×3 (06:44→21:18)
[2018-08-04 06:55] LABS: Bedside Glucose 156 mg/dL (70-110)
[2018-08-04] MEDS: Insulin Lispro 100 UNIT/ML INSULN.PEN SC ×5 (07:07→21:20)
--- NOTE | 2018-08-04 07:20 | PCM.PN.HOSP ---
Patient Problems: Active and Suspected Problems (Last Reviewed 08/01/18 @ 13:11 by Jose J Tucker DO) Hypotension, unspecified (Acute) Severe sepsis (Acute) Pseudomembranous enterocolitis (Acute) Hyperkalemia, diminished renal excretion (Acute) Cholelithiasis (Acute) Infectious encephalopathy (Acute) Uremia of renal origin (Acute) Hyperglycemia due to type 2 diabetes mellitus (Acute) Septic shock (Acute) NICK (acute kidney injury) (Acute) C. difficile colitis (Acute) Hyperkalemia (Acute) Metabolic acidosis (Acute) Hyponatremia (Acute) NSTEMI (non-ST elevated myocardial infarction) (Acute) Subjective: Patient seen his diarrhea appears to have subsided. C. difficile assay came back negative. Sputum cultures so far growing gram-negative rods final identification and sensitivities pending. Patient blood pressure is however elevated this a.m. with systolic of 118. Plan is for patient to be transferred from the intensive care unit to the progressive care unit. Objective: GENERAL: Cooperative HEENT: Atraumatic; moist oral mucosa EYES; Anicteric, Normal Conjunctiva NECK; supple, normal thyroid, RESPIRATORY: Diminished to auscultation bilaterally, CARDIOVASCULAR: Regular S1 S2, GI: soft, non-tender, normoactive bowel sounds, : No Renal angle tenderness; EXTREMITIES: edema, no clubbing, no cyanosis. MUSCULOSKELETAL: No Joint Tenderness; NEURO: Awake; no lateralizing signs. SKIN: No Rash PSYCH; Normal affect Vitals/I&O's: Vital Signs Temp Pulse Resp BP Pulse Ox 98.8 F 80 19 H 186/92 H 98 08/04/18 04:00 08/04/18 07:00 08/04/18 07:00 08/04/18 07:00 08/04/18 07:00 Oxygen Flow Rate (L/min) 2 Oxygen Delivery Method Room Air Weight: 101.9 kg Body Mass Index (BMI) 29.3 Intake and Output for Last 24 Hours 08/02/18 08/03/18 08/04/18 23:59 23:59 23:59 Intake Total 6270.2 / 6270.2 3922 / 3922 50 / 50 Output Total 1450 / 1450 2950 / 2950 375 / 375 Balance 4820.2 / 4820.2 972 / 972 -325 / -325 Microbiology Past 72 Hours 08/02/18 04:20 Urine Catheter - Catheter Urine Culture - Preliminary GPC Poss Enterococcus sp 08/01/18 14:30 Sputum, Induced/Lukens Gram Stain - Final 08/01/18 14:30 Sputum, Induced/Lukens Respiratory Culture - Preliminary Gram negative tomas 08/01/18 10:13 Blood Culture (Wb) - Anticubital Right Blood Culture - Preliminary No growth in 48 hours. 08/03/18 02:30 Stool C. difficile DNA Amplification - Final Laboratory Results 08/03/18 08:50: APTT 66.7 H 08/03/18 10:43: POC Glucose 141 H 08/03/18 14:06: POC Glucose 128 H 08/03/18 16:20: APTT 66.6 H 08/03/18 21:46: POC Glucose 154 H 08/04/18 04:45: WBC 8.9, RBC 3.17 L, Hgb 9.0 L, Hct 27.5 L, MCV 86.8, MCH 28.4, MCHC 32.7, RDW 14.6, RDW Differential 44.5 H, Plt Count 170, MPV 12.2 H, Immature Gran % (Auto) 0.500, Neut % (Auto) 57.3, Lymph % (Auto) 20.1, [place] % (Auto) 8.6, Eos % (Auto) 13.4 H, Baso % (Auto) 0.1, Absolute Neuts (auto) 5.1, Absolute Lymphs (auto) 1.78, Total Counted Not Reportable 08/04/18 04:45: Sodium 145, Potassium 4.1, Chloride 113 H, Carbon Dioxide 23.0, Anion Gap 9, BUN 56 H, Creatinine 4.29 H, Estim Creat Clear Calc 19.34, Est GFR (MDRD) Af Amer 18 L, Est GFR (MDRD) Non-Af 15 L, BUN/Creatinine Ratio 13.1, Glucose 160 H, Calcium 8.2 L, Total Bilirubin 0.30, AST 19, ALT 21, Alkaline Phosphatase 153 H, Total Protein 6.0 L, Albumin 2.4 L, Globulin 3.6, Albumin/Globulin Ratio 0.7 L 08/04/18 06:48: POC Glucose 156 H Current Medications Amiodarone HCl (Cordarone) 200 mg PO TID ZACH Last Admin: 08/04/18 06:44 Dose: 200 mg Aspirin (Aspirin, Baby) 81 mg PO DAILY@0800 [facility] Last Admin: 08/03/18 12:13 Dose: 81 mg Atorvastatin Calcium (Lipitor) 80 mg PO QHS [facility] Last Admin: 08/03/18 22:42 Dose: 80 mg Chlorhexidine Gluconate () 1 each TOPICAL DAILY [facility] Last Admin: 08/03/18 05:52 Dose: 1 each Clopidogrel Bisulfate (Plavix) 75 mg PO DAILY [facility] Last Admin: 08/03/18 12:13 Dose: 75 mg Glucagon () 1 mg IM .X1 PRN PRN Reason: Hypoglycemia Hydralazine HCl (Apresoline) 25 mg PO BID [facility] Last Admin: 08/03/18 21:40 Dose: 25 mg Piperacillin Sod/Tazobactam (Sod 3.375 gm/ Sodium Chloride) 50 mls @ 12.5 mls/hr IV Q12 [facility] Last Admin: 08/03/18 21:39 Dose: 12.5 mls/hr Insulin Human Lispro (Humalog Kwikpen (Bkc)) 0 unit [facility]; Protocol Last Admin: 08/04/18 07:07 Dose: 1 u Metoprolol Succinate (Toprol Xl (Beta Vanesa)) 50 mg PO DAILY [facility] Ondansetron HCl (Zofran) 4 mg IV Q8H PRN PRN PRN Reason: NAUSEA/VOMITING Oxycodone HCl (Oxyir) 5 mg PO BID PRN PRN PRN Reason: SEVERE PAIN (6-10/10) Last Admin: 08/03/18 21:39 Dose: 5 mg Pantoprazole Sodium (Protonix) 40 mg PO DAILY [facility] Last Admin: 08/03/18 12:13 Dose: 40 mg Prochlorperazine Edisylate (Compazine Iv) 5 mg IV Q4H PRN PRN PRN Reason: Breakthrough Nausea/Vomiting Sodium Chloride () 5 - 15 ml IV UD PRN PRN Reason: SALINE FLUSH Last Admin: 08/03/18 05:52 Dose: 10 ml Sodium Chloride () 10 - 40 ml IV UD PRN PRN Reason: MULTILUMEN/HICMAN CATH FLUSH Last Admin: 08/03/18 21:39 Dose: 40 ml Throat Lozenges (Cepacol Sore Throat Lozenge) 1 lozenge MUCOUS MEM Q2H PRN PRN PRN Reason: SORE THROAT Last Admin: 08/03/18 21:39 Dose: 1 lozenge Medical Necessity - Tobacco Use Smoking Status: Current some day smoker Assessment/Plan All Active Problems (Last Reviewed 08/01/18 @ 13:11 by Jose J Tucker DO) Hypotension, unspecified (Acute) Severe sepsis (Acute) Pseudomembranous enterocolitis (Acute) Hyperkalemia, diminished renal excretion (Acute) Cholelithiasis (Acute) Infectious encephalopathy (Acute) Uremia of renal origin (Acute) Hyperglycemia due to type 2 diabetes mellitus (Acute) Septic shock (Acute) NICK (acute kidney injury) (Acute) C. difficile colitis (Acute) Hyperkalemia (Acute) Metabolic acidosis (Acute) Hyponatremia (Acute) NSTEMI (non-ST elevated myocardial infarction) (Acute) Gastroenteritis (Acute) NICK (acute kidney injury) (Acute) Hyperkalemia (Acute) Acute renal failure superimposed on stage 4 chronic kidney disease (Acute) Metabolic acidosis (Acute) Acute exacerbation of chronic obstructive pulmonary disease (COPD) (Resolved) Acute respiratory failure with hypoxemia (Resolved) Benign neoplasm of right lung (Resolved) Influenza B (Resolved) Lower GI bleed (Resolved) Severe sepsis (Resolved) Streptococcal pneumonia (Resolved) Urinary retention due to benign prostatic hyperplasia (Resolved) Patient is a 62-year-old gentleman with multiple comorbidities including previous subtotal colectomy with chronic diarrhea admitted with increasing generalized weakness. Patient was found to be hypotensive and tachypneic. Patient was intubated in the emergency department. Cut In Station Operator assessment of septic shock made admitted to the intensive care unit for subsequent management. 1. Acute hypoxic respiratory failure patient was intubated weaned off the vent on the morning of 08/03/2018. Has since been managed with aerosol treatments in addition to supplemental oxygen titrated to keep sat greater than 90 2. Shock most likely from severe hypovolemic shock there was an initial presumptive diagnosis of septic shock of undetermined etiology (an initial suspicion of C. difficile however stool for C. difficile came back negative) As stated above patient has history of chronic diarrhea from his subtotal colectomy patient urine cultures grew enterococcus however with nonsignificant colonic level. Sputum culture so far positive for gram-negative rods. 3. Acute kidney injury ( superimposed on chronic kidney disease stage IV) patient baseline creatinine is between 2-3 was 11 on admission managed with aggressive IV fluid resuscitation creatinine 4.29 on the morning of 510 119 4. Hyperkalemia secondary to above treated per protocol 5. Elevated Troponin secondary to non-STEMI type II from demand ischemia cardiology on board 6. Chronic diarrhea with In progress stool for Giardia pending 7. Chronic kidney disease stage IV patient presented with worsening kidney function as a result of acute kidney injury 8. History of colon cancer status post subtotal colectomy patient remains in remission 9. Diabetes mellitus type 2 ; Accu-Cheks before meals and at bedtime with sliding scale coverage 10. CAD with previous CABG and subsequent stent placement 11. 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 COPD currently not in exacerbation 13. Obstructive sleep apnea with history of noncompliance with CPAP 14. Paroxysmal atrial fibrillation 15. Dyslipidemia 16. Gout 17. BPH 18. Accelerated hypertension did continue with home meds with plans to adjust doses if needed 19. DVT prophylaxis: Heparin Code Visit Inpatient E&M: 02393 Subs Hosp L3
--- NOTE | 2018-08-04 07:27 | PN.CARD_ITS ---
Subjectve: Patient seen this morning. Appears to be well. Ordering breakfast. Objective: Vital Signs Temp Pulse Resp BP Pulse Ox 98.8 F 80 19 H 186/92 H 98 08/04/18 04:00 08/04/18 07:00 08/04/18 07:00 08/04/18 07:00 08/04/18 07:00 Oxygen Flow Rate (L/min) 2 Oxygen Delivery Method Room Air Weight: 224 lb 10.417 oz Body Mass Index (BMI) 29.3 Intake and Output for Last 24 Hours 08/02/18 08/03/18 08/04/18 23:59 23:59 23:59 Intake Total 6270.2 / 6270.2 3922 / 3922 50 / 50 Output Total 1450 / 1450 2950 / 2950 375 / 375 Balance 4820.2 / 4820.2 972 / 972 -325 / -325 General: Awake, Alert, Oriented x 3 HEENT: PERRL, EOMI, Sclera Non Icteric Neck: Supple, Good ROM, No Lymph Node Enlargement Lungs: Clear to auscultation Cardiovascular: Regular Rhythm, Normal S1, Normal S2, No Murmurs, No Rubs, No Gallops Vascular: No Carotid Bruits, Normal Femoral Pulses, Normal Radial Pulses, Normal Dorsalis Pedal Pulse, Normal Posterior Tibial Pulses Abdomen: Bowel Sounds Present, Soft, Non Tender, No HSM, No Organomegaly Extremities: No Cyanosis, No Clubbing, No edema Musculoskeletal: No Erythema Skin: No Rashes Lymphatic: No Lymph Node Enlargement Neurological: No Focal Motor or Sensory Deficit Psych/Mental Status: Appropriate 08/03/18 08:50: APTT 66.7 H 08/03/18 16:20: APTT 66.6 H 08/04/18 04:45: WBC 8.9, RBC 3.17 L, Hgb 9.0 L, Hct 27.5 L, MCV 86.8, MCH 28.4, MCHC 32.7, RDW 14.6, RDW Differential 44.5 H, Plt Count 170, MPV 12.2 H, Immature Gran % (Auto) 0.500, Neut % (Auto) 57.3, Lymph % (Auto) 20.1, [place] % (Auto) 8.6, Eos % (Auto) 13.4 H, Baso % (Auto) 0.1, Absolute Neuts (auto) 5.1, Total Counted Not Reportable 08/04/18 04:45: Sodium 145, Potassium 4.1, Chloride 113 H, Carbon Dioxide 23.0, Anion Gap 9, BUN 56 H, Creatinine 4.29 H, Est GFR (MDRD) Af Amer 18 L, Est GFR (MDRD) Non-Af 15 L, BUN/Creatinine Ratio 13.1, Glucose 160 H, Calcium 8.2 L, Total Bilirubin 0.30 Rhythm: EKG: ECHO: Stress Test: Cardiac Cath: PCI: CT Surgery: Holter monitor: EPS: PPM: CXR: Chest CT Scan: Medical Necessity - Tobacco Use Smoking Status: Current some day smoker Assessment/Plan 1. NSTEMI The patient is in the ICU undergoing evaluation care of the aforementioned multiple medical issues. He has been found to have abnormal cardiac enzymes compatible with an acute non-ST segment elevation [place]. This may be a secondary type II event related to his underlying noncardiovascular condition with respect to his hypotension, metabolic acidosis, hyperkalemia, with acute on chronic renal insufficiency secondary to his sepsis syndrome. * His echocardiogram demonstrated overall preserved left ventricular systolic function * This time my recommendation be for us to follow him medically and see how he recovers from his underlying clinical condition. 2. CAD status post PCI He does have a history of underlying CAD and PCI as noted above. Again, at the present time, he is cardiac enzyme change may be a type II event secondary to supply demand mismatch secondary to his multiple noncardiovascular issues in progress. He will continue to be monitored. He will continue noninvasive evaluation. He will continue medical therapy and support. Decision as to whether to look at his coronary anatomy will be made within the next 24 to 48 hours. 3. Paroxysmal atrial fibrillation He has a history of underlying paroxysmal atrial fibrillation. He was evaluated in cardiovascular consultation for such in April 2017. At that time he did not receive anticoagulant therapy secondary to concerns of underlying gastrointestinal related bleeding process. 4. Nonsustained wide-complex tachycardia He had an episode of nonsustained wide-complex tachycardia. It may be compatible with nonsustained ventricular tachycardia. Based upon his ongoing noncardiac and cardiac issues he will continue to be followed and treated medically. Thank you for allowing me to participate in the care of your patient. Please don't hesitate to call if any issues arise
[2018-08-04] MEDS: hydrALAZINE 25 MG Tablet PO ×2 (07:51→21:19)
[2018-08-04] MEDS: Metoprolol(XL)Succ 50 MG Tablet PO (07:51)
[2018-08-04] MEDS: Clopidogrel Bisulfate 75 MG Tablet PO (07:51)
[2018-08-04] MEDS: Aspirin 81 MG TAB.CHEW PO (07:52)
[2018-08-04] MEDS: Pantoprazole Sodium 40 MG Tablet PO (07:54)
[2018-08-04] MEDS: 0.9% NaCl Peripheral Flush Adult/Peds IV ×2 (10:01→21:33)
--- NOTE | 2018-08-04 10:05 | CASEMGMT ---
DEVEN SAAVEDRA Note: Intro role of CM to patient who is sitting in chair. Pt is awake and alert. Discussed PT/OT evaluations and recommendations for Home or Outpt PT/OT. Pt is declining at this time stating, I have a walker at home if I need it and I was getting around good before, I don't think I will need it. RN KEIR let pt know if, prior to dc, he feels he could benefit form therapy, CM will help set up. Pt is on Room Air, do not anticipate will need Home O2. -update to Essence CARVALHO CM on transfer to PCU. Ant FULTONN RN ACM
--- NOTE | 2018-08-04 11:03 | PCM.PN.ID ---
Patient Problems: Active and Suspected Problems (Last Reviewed 08/01/18 @ 13:11 by Jose J Tucker DO) Hypotension, unspecified (Acute) Severe sepsis (Acute) Pseudomembranous enterocolitis (Acute) Hyperkalemia, diminished renal excretion (Acute) Cholelithiasis (Acute) Infectious encephalopathy (Acute) Uremia of renal origin (Acute) Hyperglycemia due to type 2 diabetes mellitus (Acute) Septic shock (Acute) NICK (acute kidney injury) (Acute) C. difficile colitis (Acute) Hyperkalemia (Acute) Metabolic acidosis (Acute) Hyponatremia (Acute) NSTEMI (non-ST elevated myocardial infarction) (Acute) Subjective: Feeling better, diarrhea improving, out of icu, no abd pain, no fever. Mild cough. - Physical Exam General: Alert, Cooperative, No apparent distress Lungs: Clear to auscultation, Normal air movement Cardiovascular: Regular rate, Regular Rhythm Abdomen: Soft, Non Tender, Non-Distended Skin: No rashes Vital Signs Temp Pulse Resp BP Pulse Ox 97.7 F L 90 16 159/85 H 97 08/04/18 10:00 08/04/18 10:00 08/04/18 10:00 08/04/18 10:00 08/04/18 10:00 Oxygen Flow Rate (L/min) 2 Oxygen Delivery Method Room Air Weight: 101.9 kg Body Mass Index (BMI) 29.3 Intake and Output for Last 24 Hours 08/02/18 08/03/18 08/04/18 23:59 23:59 23:59 Intake Total 6270.2 / 6270.2 3922 / 3922 50 / 50 Output Total 1450 / 1450 2950 / 2950 375 / 375 Balance 4820.2 / 4820.2 972 / 972 -325 / -325 Microbiology Past 72 Hours 08/02/18 04:20 Urine Culture - Final Urine Catheter - Catheter Enterococcus faecalis 08/01/18 14:30 Gram Stain - Final Sputum, Induced/Lukens Respiratory Culture - Preliminary Pseudomonas putida 08/01/18 10:13 Blood Culture - Preliminary Blood Culture (Wb) - Anticubital Right No growth in 48 hours. 08/03/18 02:30 C. difficile DNA Amplification - Final Stool Laboratory Tests Past 24 Hrs 08/03/18 08/04/18 08/04/18 16:20 04:45 04:45 WBC 8.9 RBC 3.17 L Hgb 9.0 L Hct 27.5 L MCV 86.8 MCH 28.4 MCHC 32.7 RDW 14.6 RDW Differential 44.5 H Plt Count 170 MPV 12.2 H Immature Gran % (Auto) 0.500 Neut % (Auto) 57.3 Lymph % (Auto) 20.1 [place] % (Auto) 8.6 Eos % (Auto) 13.4 H Baso % (Auto) 0.1 Absolute Neuts (auto) 5.1 Absolute Lymphs (auto) 1.78 Total Counted Not Reportable APTT 66.6 H Sodium 145 Potassium 4.1 Chloride 113 H Carbon Dioxide 23.0 Anion Gap 9 BUN 56 H Creatinine 4.29 H Estim Creat Clear Calc 19.34 Est GFR (MDRD) Af Amer 18 L Est GFR (MDRD) Non-Af 15 L BUN/Creatinine Ratio 13.1 Glucose 160 H Calcium 8.2 L Total Bilirubin 0.30 AST 19 ALT 21 Alkaline Phosphatase 153 H Total Protein 6.0 L Albumin 2.4 L Globulin 3.6 Albumin/Globulin Ratio 0.7 L POC Glucose 08/04/18 08/03/18 08/03/18 06:48 21:46 14:06 POC Glucose 156 H 154 H 128 H Medical Necessity - Tobacco Use Smoking Status: Current some day smoker Route of nutrition/ use of supplements: [] Nutritional Intake: [] IV Site: [] Hoff Catheter: [] - Assessment/Plan Antibiotics: [] Assessment/Plan: [] Active and Suspected Problems (Last Reviewed 08/01/18 @ 13:11 by Jose J Tucker DO) Hypotension, unspecified (Acute) Severe sepsis (Acute) Pseudomembranous enterocolitis (Acute) Hyperkalemia, diminished renal excretion (Acute) Cholelithiasis (Acute) Infectious encephalopathy (Acute) Uremia of renal origin (Acute) Hyperglycemia due to type 2 diabetes mellitus (Acute) Septic shock (Acute) NICK (acute kidney injury) (Acute) C. difficile colitis (Acute) Hyperkalemia (Acute) Metabolic acidosis (Acute) Hyponatremia (Acute) NSTEMI (non-ST elevated myocardial infarction) (Acute) septic shock - unclear cause. Cdiff here and at PCP's office was neg. Cont zosyn. Ucx with some enterococcus, sputum with some pseudomonas. Pending stool pcr panel. Day 4 of abx. Will follow
[2018-08-04 11:06] LABS: HEPATITIS B SURFACE AG Negative (Negative)
[2018-08-04 11:46] LABS: Bedside Glucose 185 mg/dL (70-110)
--- NOTE | 2018-08-04 13:42 | PCM.PN.REN ---
Patient Problems: Active and Suspected Problems (Last Reviewed 08/01/18 @ 13:11 by Jose J Tucker DO) Hypotension, unspecified (Acute) Severe sepsis (Acute) Pseudomembranous enterocolitis (Acute) Hyperkalemia, diminished renal excretion (Acute) Cholelithiasis (Acute) Infectious encephalopathy (Acute) Uremia of renal origin (Acute) Hyperglycemia due to type 2 diabetes mellitus (Acute) Septic shock (Acute) NICK (acute kidney injury) (Acute) C. difficile colitis (Acute) Hyperkalemia (Acute) Metabolic acidosis (Acute) Hyponatremia (Acute) NSTEMI (non-ST elevated myocardial infarction) (Acute) Subjective: formed stool. Creatinine slightly improved. On fluid restriction. Denies shortness of breath, chest pain. No edema - Physical Exam General: Alert, Oriented x3, Cooperative, No apparent distress Neck: Supple Lungs: Clear to auscultation, Diminished Cardiovascular: Regular rate Abdomen: Bowel Sounds Present, Soft, Non Tender, Non-Distended Skin: No rashes Psych/Mental Status: Alert and oriented to time, place, person, mood and affect Vital Signs Temp Pulse Resp BP Pulse Ox 97.7 F L 90 16 159/85 H 97 08/04/18 10:00 08/04/18 10:00 08/04/18 10:00 08/04/18 10:00 08/04/18 10:00 Oxygen Flow Rate (L/min) 2 Oxygen Delivery Method Room Air Weight: 101.9 kg Body Mass Index (BMI) 29.3 Intake and Output for Last 24 Hours 08/02/18 08/03/18 08/04/18 23:59 23:59 23:59 Intake Total 6270.2 / 6270.2 3922 / 3922 439.6 / 439.6 Output Total 1450 / 1450 2950 / 2950 375 / 375 Balance 4820.2 / 4820.2 972 / 972 64.6 / 64.6 Microbiology Past 72 Hours 08/02/18 04:20 Urine Culture - Final Urine Catheter - Catheter Enterococcus faecalis 08/01/18 14:30 Gram Stain - Final Sputum, Induced/Lukens Respiratory Culture - Preliminary Pseudomonas putida 08/01/18 10:13 Blood Culture - Preliminary Blood Culture (Wb) - Anticubital Right No growth in 48 hours. 08/03/18 02:30 C. difficile DNA Amplification - Final Stool Laboratory Tests Past 24 Hrs 08/03/18 08/04/18 08/04/18 16:20 04:45 04:45 WBC 8.9 RBC 3.17 L Hgb 9.0 L Hct 27.5 L MCV 86.8 MCH 28.4 MCHC 32.7 RDW 14.6 RDW Differential 44.5 H Plt Count 170 MPV 12.2 H Immature Gran % (Auto) 0.500 Neut % (Auto) 57.3 Lymph % (Auto) 20.1 [place] % (Auto) 8.6 Eos % (Auto) 13.4 H Baso % (Auto) 0.1 Absolute Neuts (auto) 5.1 Absolute Lymphs (auto) 1.78 Total Counted Not Reportable APTT 66.6 H Sodium 145 Potassium 4.1 Chloride 113 H Carbon Dioxide 23.0 Anion Gap 9 BUN 56 H Creatinine 4.29 H Estim Creat Clear Calc 19.34 Est GFR (MDRD) Af Amer 18 L Est GFR (MDRD) Non-Af 15 L BUN/Creatinine Ratio 13.1 Glucose 160 H Calcium 8.2 L Total Bilirubin 0.30 AST 19 ALT 21 Alkaline Phosphatase 153 H Total Protein 6.0 L Albumin 2.4 L Globulin 3.6 Albumin/Globulin Ratio 0.7 L POC Glucose 08/04/18 08/04/18 08/03/18 11:36 06:48 21:46 POC Glucose 185 H 156 H 154 H 08/03/18 14:06 POC Glucose 128 H Medical Necessity - Tobacco Use Smoking Status: Current some day smoker Assessment/Plan All Active Problems (Last Reviewed 08/01/18 @ 13:11 by Jose J Tucker DO) Hypotension, unspecified (Acute) Severe sepsis (Acute) Pseudomembranous enterocolitis (Acute) Hyperkalemia, diminished renal excretion (Acute) Cholelithiasis (Acute) Infectious encephalopathy (Acute) Uremia of renal origin (Acute) Hyperglycemia due to type 2 diabetes mellitus (Acute) Septic shock (Acute) NICK (acute kidney injury) (Acute) C. difficile colitis (Acute) Hyperkalemia (Acute) Metabolic acidosis (Acute) Hyponatremia (Acute) NSTEMI (non-ST elevated myocardial infarction) (Acute) Gastroenteritis (Acute) NICK (acute kidney injury) (Acute) Hyperkalemia (Acute) Acute renal failure superimposed on stage 4 chronic kidney disease (Acute) Metabolic acidosis (Acute) Acute exacerbation of chronic obstructive pulmonary disease (COPD) (Resolved) Acute respiratory failure with hypoxemia (Resolved) Benign neoplasm of right lung (Resolved) Influenza B (Resolved) Lower GI bleed (Resolved) Severe sepsis (Resolved) Streptococcal pneumonia (Resolved) Urinary retention due to benign prostatic hyperplasia (Resolved) 1. Shock sepsis requiring pressor support. BP stable Tolerating diet well. 2. Acute kidney injury likely due to shock sepsis, ATN. Creatinine improved to 4.2 today with good UOP. Baseline creatinine 2-3. No further dialysis needed. 3. Acute hyperkalemia with cardiac arrhythmia. resolved 4. History of C. difficile colitis continue to treat empirically for now. Leukocytosis without fever. Enterococcus in urine, GNR in sputum 5. Metabolic acidosis resolved 6. Acute respiratory failure with hypoxemia extubated today 7. Acute metabolic encephalopathy resolved
[2018-08-04 16:36] LABS: Hepatitis B Core Ab Total Negative (Negative)
[2018-08-04 16:51] LABS: Bedside Glucose 214 mg/dL (70-110)
[2018-08-04] MEDS: amLODIPine 10 MG Tablet PO (17:15)
[2018-08-04] MEDS: diazePAM 5 MG Tablet PO (17:15)
[2018-08-04] MEDS: Tamsulosin HCl 0.4 MG Capsule PO (17:43)
[2018-08-04] MEDS: hydrALAZINE 20 MG/ML Vial 10 MG IV (18:46)
[2018-08-04] MEDS: Ipratropium 0.5 MG/2.5 ML SOLUTION INHALATION (19:50)
--- NOTE | 2018-08-04 19:52 | DIALYSIS ---
Temp non-tunneled RIJ HD CVC removed successfully. Pt tolerated procedure well. Hemostasis achieved over 5 mins. Sterile gauze and dressing applied and secured. Site benign. Pt monitored for 30mins prior to this RN from departing. DEVEN Cantu notified of post care and monitoring protocol. Pt stable at this time.
[2018-08-04] MEDS: Sodium Bicarbonate 650 MG Tablet PO (21:21)
[2018-08-04] MEDS: Atorvastatin Calcium 80 MG Tablet PO (21:21)
[2018-08-04] MEDS: Heparin Injection (Vial) 5,000 UNIT/ML VIAL 5000 UNIT SC (21:24)
[2018-08-04 22:41] LABS: Bedside Glucose 188 mg/dL (70-110)
[2018-08-05] VITALS (10 sets, daily range): BP systolic 127–156; BP diastolic 63–80; PULSE 70–100; RESP 18–19; TEMP 36.6–37.1; O2SAT 93–98
[2018-08-05 04:42] LABS: Absolute Lymphocyte Count 1.79 X10^3/ul (0.83-4.51); Absolute Neutrophil Count 4.9 X10^3/uL (2.0-7.7); Basophil# 0.02 X10^3/uL; Basophil% 0.2 % (0-1); Eosinophil# 1.08 X10^3/uL; Eosinophils% 12.8 % (0-5); Hematocrit 28.7 % (40-54); Hemoglobin 9.5 g/dl (13.0-16.5); Lymphocyte # 1.79 X10^3/ul (4.0); Lymphocyte % 21.2 % (19-41); Mean Corp Hgb Conc 33.1 g/gl (32-36); Mean Corpuscular Hgb 28.9 pg (27.0-32.0); Mean Corpuscular Volume 87.2 fL (80-94); Mean Platelet Vol. 12.6 fl (6.2-12.0); Monocyte% 7.1 % (0-10); Neutrophil # 4.87 X10^3/uL (2.7-7.7); Neutrophil % 57.9 % (47-70); Platelet Count 179 K/mm3 (150-450); RBC Distribution Width CV 14.5 % (11.6-14.6); RBC Distribution Width SD 43.9 fl (35.1-43.9); Red Blood Count 3.29 M/mm3 (4.6-6.2); White Blood Count 8.4 K/mm3 (4.4-11.0)
[2018-08-05 04:44] LABS: POSITIVE COUNT NO; POSITIVE DIFFERENTIAL NO; POSITIVE MORPHOLOGY NO
[2018-08-05 04:53] LABS: Anion Gap 9 (5-15); BUN 51 mg/dL (7-18); BUN/Creat Ratio 15.2 RATIO (10-20); Chloride 113 mmol/L (98-107); Creatinine, Serum 3.35 mg/dL (0.70-1.30); EST Glomerular Filtration Rate 20 mL/min (>60); Est Glom Filt Rate - Afr Amer 24 mL/min (>60); Estimated Creatinine Clearance 24.77 ml/min; Glucose 160 mg/dL (74-106); Magnesium 1.5 mg/dL (1.6-2.6); Potassium 4.1 mmol/L (3.5-5.1); Sodium Level 146 mmol/L (136-145)
[2018-08-05] MEDS: Sodium Bicarbonate 650 MG Tablet PO ×2 (06:27→14:45)
[2018-08-05] MEDS: Amiodarone 200 MG Tablet PO ×2 (06:27→14:45)
[2018-08-05] MEDS: Heparin Injection (Vial) 5,000 UNIT/ML VIAL 5000 UNIT SC (06:33)
[2018-08-05 06:46] LABS: Bedside Glucose 141 mg/dL (70-110)
--- NOTE | 2018-08-05 07:07 | PCM.PN.PUL ---
Patient Problems: Active and Suspected Problems (Last Reviewed 08/01/18 @ 13:11 by Jose J Tucker DO) Hypotension, unspecified (Acute) Severe sepsis (Acute) Pseudomembranous enterocolitis (Acute) Hyperkalemia, diminished renal excretion (Acute) Cholelithiasis (Acute) Infectious encephalopathy (Acute) Uremia of renal origin (Acute) Hyperglycemia due to type 2 diabetes mellitus (Acute) Septic shock (Acute) NICK (acute kidney injury) (Acute) C. difficile colitis (Acute) Hyperkalemia (Acute) Metabolic acidosis (Acute) Hyponatremia (Acute) NSTEMI (non-ST elevated myocardial infarction) (Acute) Subjective: The patient was seen and examined at the bedside this morning. Events from the last 24 hours have been reviewed. The patient is currently afebrile, hemodynamically stable and maintaining appropriate oxygen saturations on room air. The patient has done well clinically following transfer out of the intensive care unit yesterday. Objective: The patient's most recent lab work, culture data and imaging studies have all been personally reviewed. C. difficile was negative. Surface echocardiogram dated April 2017 revealed normal LV size and thickness with an ejection fraction of 65% and stage II diastolic dysfunction. The patient has known obstructive sleep apnea and is currently prescribed nocturnal bilevel therapy with a pressure support of 16/10 centimeters of water. The patient also has known COPD with an FEV1 of 36% of predicted. Sputum Gram stain was positive for the presence of a gram-negative tomas. Urine culture is growing possible enterococcus. - Physical Exam General: Alert, Cooperative, No apparent distress HEENT: Atraumatic, PERRLA, Normocephalic Oral: No Gingival or Mucosal Lesions/ Ulcerations Neck: Supple, No Nodes, Trachea Midline Lungs: No rhonchi, No wheeze, No rales, Diminished Cardiovascular: Regular rate, Regular Rhythm, Normal S1, Normal S2, No murmurs Abdomen: Bowel Sounds Present, Soft, Non Tender Extremities: No clubbing, No cyanosis, No edema Skin: No breakdown Musculoskeletal: No Tenderness to Palpation of Joints or Extremities Lymphatic: No Cervical, Supraclavicular, or Inguinal Adenopathy Neurological: Neuro grossly intact Psych/Mental Status: Normal Affect, Appropriate Vital Signs Temp Pulse Resp BP Pulse Ox 98.7 F 74 18 147/63 H 97 08/05/18 04:30 08/05/18 04:30 08/05/18 04:30 08/05/18 04:30 08/05/18 04:30 Oxygen Flow Rate (L/min) 2 Oxygen Delivery Method Room Air Weight: 218 lb 14.704 oz Body Mass Index (BMI) 29.3 Intake and Output for Last 24 Hours 08/03/18 08/04/18 08/05/18 23:59 23:59 23:59 Intake Total 3922 / 3922 709.6 / 709.6 500.2 / 500.2 Output Total 2950 / 2950 375 / 375 1075 / 1075 Balance 972 / 972 334.6 / 334.6 -574.8 / -574.8 Microbiology Past 72 Hours 08/02/18 04:20 Urine Culture - Final Urine Catheter - Catheter Enterococcus faecalis 08/01/18 14:30 Gram Stain - Final Sputum, Induced/Lukens Respiratory Culture - Preliminary Pseudomonas putida 08/01/18 10:13 Blood Culture - Preliminary Blood Culture (Wb) - Anticubital Right No growth in 48 hours. 08/03/18 02:30 C. difficile DNA Amplification - Final Stool Laboratory Tests Past 24 Hrs 08/01/18 08/05/18 08/05/18 14:30 04:25 04:25 WBC 8.4 RBC 3.29 L Hgb 9.5 L Hct 28.7 L MCV 87.2 MCH 28.9 MCHC 33.1 RDW 14.5 RDW Differential 43.9 Plt Count 179 MPV 12.6 H Immature Gran % (Auto) 0.800 Neut % (Auto) 57.9 Lymph % (Auto) 21.2 [place] % (Auto) 7.1 Eos % (Auto) 12.8 H Baso % (Auto) 0.2 Absolute Neuts (auto) 4.9 Absolute Lymphs (auto) 1.79 Total Counted Not Reportable Sodium 146 H Potassium 4.1 Chloride 113 H Carbon Dioxide 24.0 Anion Gap 9 BUN 51 H Creatinine 3.35 H Estim Creat Clear Calc 24.77 Est GFR (MDRD) Af Amer 24 L Est GFR (MDRD) Non-Af 20 L BUN/Creatinine Ratio 15.2 Glucose 160 H Calcium 8.0 L Magnesium 1.5 L Hep Bs Antigen Negative Hep B Core Total Ab Negative POC Glucose 08/05/18 08/04/1819 06:35 21:15 16:45 POC Glucose 141 H 188 H 214 H 08/04/18 11:36 POC Glucose 185 H Clinical Impression(s) from Imaging Studies Chest X-Ray 08/01/18 10:02 IMPRESSION: 1. Right subclavian central venous catheter extends into the right jugular vein/neck. Repositioning recommended. 2. Satisfactory position of endotracheal tube. 3. Bullous and fibrotic changes of the right upper lung field, similar. 4. No airspace consolidation or pneumothorax. Electronically Signed: Yevs Lamb MD at 11:45 EDT , Service support , Abdomen Ultrasound 08/01/18 10:31 IMPRESSION: 1. Solitary gallstone without sonographic evidence of acute cholecystitis. 2. Mild hepatomegaly. Electronically Signed: Yves Lamb MD at 12:15 EDT , Service support , KUB X-Ray 08/01/18 14:20 IMPRESSION: Enteric tube extends to the gastric fundus. Electronically Signed: Yves Lamb MD at 15:05 EDT , Service support , Chest X-Ray 08/01/18 14:28 IMPRESSION: Satisfactory position of right subclavian central venous catheter and jugular dialysis catheter Electronically Signed: Yves Lamb MD at 15:04 EDT , Service support , KUB X-Ray 08/02/18 02:10 IMPRESSION: The enteric tube tip lies within the gastric fundus and should be advanced. No bowel obstruction seen. at 0429 Reported and signed by: Wilberto Hernandez MD Electronically Signed: Wilberto Hernandez, at 4:28 EDT Tel , Service support , KUB X-Ray 08/02/18 04:59 IMPRESSION: The enteric tube has been advanced and appears in good position. No bowel obstruction. at 0540 Reported and signed by: Wilberto Hernandez MD Electronically Signed: Wilberto Hernandez, at 5:39 EDT Tel , Service support , Medical Necessity - Tobacco Use Smoking Status: Current some day smoker Assessment/Plan All Active Problems (Last Reviewed 08/01/18 @ 13:11 by Jose J Tucker DO) Hypotension, unspecified (Acute) Severe sepsis (Acute) Pseudomembranous enterocolitis (Acute) Hyperkalemia, diminished renal excretion (Acute) Cholelithiasis (Acute) Infectious encephalopathy (Acute) Uremia of renal origin (Acute) Hyperglycemia due to type 2 diabetes mellitus (Acute) Septic shock (Acute) NICK (acute kidney injury) (Acute) C. difficile colitis (Acute) Hyperkalemia (Acute) Metabolic acidosis (Acute) Hyponatremia (Acute) NSTEMI (non-ST elevated myocardial infarction) (Acute) Gastroenteritis (Acute) NICK (acute kidney injury) (Acute) Hyperkalemia (Acute) Acute renal failure superimposed on stage 4 chronic kidney disease (Acute) Metabolic acidosis (Acute) Acute exacerbation of chronic obstructive pulmonary disease (COPD) (Resolved) Acute respiratory failure with hypoxemia (Resolved) Benign neoplasm of right lung (Resolved) Influenza B (Resolved) Lower GI bleed (Resolved) Severe sepsis (Resolved) Streptococcal pneumonia (Resolved) Urinary retention due to benign prostatic hyperplasia (Resolved) RECOMMENDATIONS: 1. Continue empiric antimicrobial coverage, pending finalized infectious work-up. 2. Encourage incentive spirometer use and mobilize patient as tolerated. 3. Perform walking oximetry study prior to consideration for discharge from the hospital. 4. The patient will need to be scheduled a follow-up office visit in the pulmonary medicine clinic within 2 weeks of discharge. IMPRESSIONS: 1. Acute hypoxemic respiratory failure/baseline advanced stage COPD Improved. The patient does have a known history of advanced age COPD and unfortunately continues to smoke cigarettes daily. He was not noted to require supplemental oxygen during his previous 6-minute walk test. The patient may have experienced an exacerbation of his underlying obstructive lung disease secondary to gram-negative pneumonia. He was able to be successfully extubated on August 03 and has been subsequently weaned to room air. The patient will remain on empiric antimicrobials accordingly. Encourage incentive spirometer use and mobilize patient as tolerated. 2. Septic shock secondary to possible gram-negative pneumonia The patient initially presented to the hospital with diarrhea felt to be secondary to recurrent C. difficile colitis. However, testing by his PCP prior to his hospital admission along with testing performed here upon admission to the hospital was negative for C. difficile. Therefore, empiric treatment with p.o. vancomycin and IV Flagyl was stopped. Infectious diseases is currently following. Stool PCR panel was negative. The patient does currently have Pseudomonas isolated from his sputum, for which she will be continued on antibiotics per ID recommendations. 3. Acute on chronic kidney disease Improving. Concerns for ATN in the setting of #2. The patient did have to be dialyzed. Nephrology is following. Renal function has improved without further indication for hemodialysis. 4. Non-ST segment elevation DC/history of coronary artery disease status post PCI The patient will be continued on current medical therapy at the discretion of cardiology. Surface echocardiogram revealed an ejection fraction of 50% with stage I diastolic dysfunction. 5. History of obstructive sleep apnea The patient does have a history of obstructive sleep apnea but is noncompliant with the use of nocturnal Pap therapy. 6. Secondary hyperparathyroidism/history of colon cancer/LADARIUS with noncompliance/paroxysmal A. fib/hypertension/continuous tobacco dependency Complicates care, management, recovery and prognosis. Nicotine replacement therapy can be offered while he is admitted to the hospital. The patient may require additional titration of his home BP meds, as his outpatient SHAR inhibitor remains on hold due to renal insufficiency. This note was generated with [employer] dictation software. It may contain incorrect words, spelling, and punctuation that were not noted in checking the note before signing. Code Visit Inpatient E&M: 19246 Subs Hosp L2
--- NOTE | 2018-08-05 08:11 | PCM.PN.HOSP ---
Patient Problems: Active and Suspected Problems (Last Reviewed 08/01/18 @ 13:11 by Jose J Tucker DO) Hypotension, unspecified (Acute) Severe sepsis (Acute) Pseudomembranous enterocolitis (Acute) Hyperkalemia, diminished renal excretion (Acute) Cholelithiasis (Acute) Infectious encephalopathy (Acute) Uremia of renal origin (Acute) Hyperglycemia due to type 2 diabetes mellitus (Acute) Septic shock (Acute) NICK (acute kidney injury) (Acute) C. difficile colitis (Acute) Hyperkalemia (Acute) Metabolic acidosis (Acute) Hyponatremia (Acute) NSTEMI (non-ST elevated myocardial infarction) (Acute) Subjective: Patient seen clinical condition continues to improve. Final sputum cultures came back positive for Pseudomonas species as well as presumptive Mellissa albicans. Added amlodipine to patient antihypertensive regimen on 08/04/2018 Microbiology 08/01/18 14:30 Gram Stain - Final Sputum, Induced/Lukens Respiratory Culture - Final Pseudomonas putida Presumptive C albicans 08/04/18 01:30 Enteric Bacteriology - Final Stool 08/02/18 04:20 Urine Culture - Final Urine Catheter - Catheter Enterococcus faecalis Objective: GENERAL: Cooperative HEENT: Atraumatic; moist oral mucosa EYES; Anicteric, Normal Conjunctiva NECK; supple, normal thyroid, RESPIRATORY: Diminished to auscultation bilaterally, CARDIOVASCULAR: Regular S1 S2, GI: soft, non-tender, normoactive bowel sounds, : No Renal angle tenderness; EXTREMITIES: edema, no clubbing, no cyanosis. MUSCULOSKELETAL: No Joint Tenderness; NEURO: Awake; no lateralizing signs. SKIN: No Rash PSYCH; Normal affect Vitals/I&O's: Vital Signs Temp Pulse Resp BP Pulse Ox 98.7 F 70 18 147/63 H 97 08/05/18 04:30 08/05/18 07:19 08/05/18 04:30 08/05/18 04:30 08/05/18 04:30 Oxygen Flow Rate (L/min) 2 Oxygen Delivery Method Room Air Weight: 99.3 kg Body Mass Index (BMI) 29.3 Intake and Output for Last 24 Hours 08/03/18 08/04/18 08/05/18 23:59 23:59 23:59 Intake Total 3922 / 3922 709.6 / 709.6 500.2 / 500.2 Output Total 2950 / 2950 375 / 375 1075 / 1075 Balance 972 / 972 334.6 / 334.6 -574.8 / -574.8 Microbiology Past 72 Hours 08/01/18 14:30 Sputum, Induced/Lukens Gram Stain - Final 08/01/18 14:30 Sputum, Induced/Lukens Respiratory Culture - Final Pseudomonas putida Presumptive C albicans 08/04/18 01:30 Stool Enteric Bacteriology - Final 08/02/18 04:20 Urine Catheter - Catheter Urine Culture - Final Enterococcus faecalis 08/01/18 10:13 Blood Culture (Wb) - Anticubital Right Blood Culture - Preliminary No growth in 48 hours. 08/03/18 02:30 Stool C. difficile DNA Amplification - Final Laboratory Results 08/01/18 14:30: Hep Bs Antigen Negative, Hep B Core Total Ab Negative 08/04/18 11:36: POC Glucose 185 H 08/04/18 16:45: POC Glucose 214 H 08/04/18 21:15: POC Glucose 188 H 08/05/18 04:25: WBC 8.4, RBC 3.29 L, Hgb 9.5 L, Hct 28.7 L, MCV 87.2, MCH 28.9, MCHC 33.1, RDW 14.5, RDW Differential 43.9, Plt Count 179, MPV 12.6 H, Immature Gran % (Auto) 0.800, Neut % (Auto) 57.9, Lymph % (Auto) 21.2, [place] % (Auto) 7.1, Eos % (Auto) 12.8 H, Baso % (Auto) 0.2, Absolute Neuts (auto) 4.9, Absolute Lymphs (auto) 1.79, Total Counted Not Reportable 08/05/18 04:25: Sodium 146 H, Potassium 4.1, Chloride 113 H, Carbon Dioxide 24.0, Anion Gap 9, BUN 51 H, Creatinine 3.35 H, Estim Creat Clear Calc 24.77, Est GFR (MDRD) Af Amer 24 L, Est GFR (MDRD) Non-Af 20 L, BUN/Creatinine Ratio 15.2, Glucose 160 H, Calcium 8.0 L, Magnesium 1.5 L 08/05/18 06:35: POC Glucose 141 H Current Medications Albuterol Sulfate (Ventolin Aerosols) 2.5 mg INHALATION Q4H PRN PRN PRN Reason: SOB &/OR WHEEZING Allopurinol (Zyloprim) 300 mg PO DAILY [facility] Amiodarone HCl (Cordarone) 200 mg PO TID [facility] Last Admin: 08/05/18 06:27 Dose: 200 mg Amlodipine Besylate (Norvasc) 10 mg PO DAILY [facility] Aspirin (Aspirin, Baby) 81 mg PO DAILY@0800 [facility] Last Admin: 08/04/18 07:52 Dose: 81 mg Atorvastatin Calcium (Lipitor) 80 mg PO QHS [facility] Last Admin: 08/04/18 21:21 Dose: 80 mg Clopidogrel Bisulfate (Plavix) 75 mg PO DAILY [facility] Last Admin: 08/04/18 07:51 Dose: 75 mg Colchicine (Colchicine) 0.6 mg PO TID PRN PRN PRN Reason: GOUT Diazepam (Valium) 5 mg PO DAILY PRN PRN Reason: ANXIETY Last Admin: 08/04/18 17:15 Dose: 5 mg Ergocalciferol (Vitamin D) 50,000 unit PO Q14D [facility]ous [facility]) [facility] Finasteride (Proscar) 5 mg PO DAILY [facility] Glucagon () 1 mg IM .X1 PRN PRN Reason: Hypoglycemia Heparin Sodium (Porcine) (Heparin Na) 5,000 unit SC Q8 [facility] Last Admin: 08/05/18 06:33 Dose: 5,000 unit Hydralazine HCl (Apresoline) 25 mg PO BID [facility] Last Admin: 08/04/18 21:19 Dose: 25 mg Hydralazine HCl (Apresoline Iv) 10 mg IV Q4H PRN PRN PRN Reason: for SBP > 150 Last Admin: 08/04/18 18:46 Dose: 10 mg Piperacillin Sod/Tazobactam (Sod 3.375 gm/ Sodium Chloride) 50 mls @ 12.5 mls/hr IV Q12 [facility] Last Admin: 08/04/18 21:21 Dose: 12.5 mls/hr Magnesium Sulfate 2 gm/ Sodium (Chloride) 104 mls @ 52 mls/hr IV X1 ONE Stop: 08/05/18 09:59 Insulin Glargine (Lantus (Bkc)) 60 units SC BID [facility] Last Admin: 08/04/18 21:19 Dose: 60 units Insulin Human Lispro (Humalog Kwikpen ([facility])) 0 unit SC ACHS [facility]; Protocol Last Admin: 08/05/18 06:38 Dose: Not Given Insulin Human Lispro (Humalog Kwikpen (Bkc)) 5 unit SC TIDCM [facility] Last Admin: 08/04/18 17:24 Dose: 5 units Ipratropium [place] (Atrovent) 0.5 mg INHALATION Q6HWA.RT [facility] Last Admin: 08/04/18 19:50 Dose: 0.5 mg Isosorbide Mononitrate (Imdur) 30 mg PO DAILY [facility] Metoprolol Succinate (Toprol Xl (Beta Vanesa)) 50 mg PO DAILY [facility] Last Admin: 08/04/18 07:51 Dose: 50 mg Nitroglycerin (Nitrostat) 0.4 mg SUBLINGUAL Q5M PRN PRN Reason: Chest Pain Ondansetron HCl (Zofran) 4 mg IV Q8H PRN PRN PRN Reason: NAUSEA/VOMITING Oxycodone HCl (Oxyir) 5 mg PO BID PRN PRN PRN Reason: SEVERE PAIN (6-10/10) Last Admin: 08/03/18 21:39 Dose: 5 mg Pantoprazole Sodium (Protonix) 40 mg PO DAILY [facility] Last Admin: 08/04/18 07:54 Dose: 40 mg Prochlorperazine Edisylate (Compazine Iv) 5 mg IV Q4H PRN PRN PRN Reason: Breakthrough Nausea/Vomiting Sodium Bicarbonate (Sodium Bicarbonate) 650 mg PO TID [facility] Last Admin: 08/05/18 06:27 Dose: 650 mg Sodium Chloride () 5 - 15 ml IV UD PRN PRN Reason: SALINE FLUSH Last Admin: 08/04/18 21:33 Dose: 10 ml Sodium Chloride () 10 - 40 ml IV UD PRN PRN Reason: MULTILUMEN/HICMAN CATH FLUSH Last Admin: 08/05/18 04:26 Dose: 30 ml Tamsulosin HCl (Flomax) 0.4 mg PO DAILY@1730 [facility] Last Admin: 08/04/18 17:43 Dose: 0.4 mg Throat Lozenges (Cepacol Sore Throat Lozenge) 1 lozenge MUCOUS MEM Q2H PRN PRN PRN Reason: SORE THROAT Last Admin: 08/03/18 21:39 Dose: 1 lozenge Medical Necessity - Tobacco Use Smoking Status: Current some day smoker Assessment/Plan All Active Problems (Last Reviewed 08/01/18 @ 13:11 by Jose J Tucker DO) Hypotension, unspecified (Acute) Severe sepsis (Acute) Pseudomembranous enterocolitis (Acute) Hyperkalemia, diminished renal excretion (Acute) Cholelithiasis (Acute) Infectious encephalopathy (Acute) Uremia of renal origin (Acute) Hyperglycemia due to type 2 diabetes mellitus (Acute) Septic shock (Acute) NICK (acute kidney injury) (Acute) C. difficile colitis (Acute) Hyperkalemia (Acute) Metabolic acidosis (Acute) Hyponatremia (Acute) NSTEMI (non-ST elevated myocardial infarction) (Acute) Gastroenteritis (Acute) NICK (acute kidney injury) (Acute) Hyperkalemia (Acute) Acute renal failure superimposed on stage 4 chronic kidney disease (Acute) Metabolic acidosis (Acute) Acute exacerbation of chronic obstructive pulmonary disease (COPD) (Resolved) Acute respiratory failure with hypoxemia (Resolved) Benign neoplasm of right lung (Resolved) Influenza B (Resolved) Lower GI bleed (Resolved) Severe sepsis (Resolved) Streptococcal pneumonia (Resolved) Urinary retention due to benign prostatic hyperplasia (Resolved) Patient is a 62-year-old gentleman with multiple comorbidities including previous subtotal colectomy with chronic diarrhea admitted with increasing generalized weakness. Patient was found to be hypotensive and tachypneic. Patient was intubated in the emergency department. Product Transfer Pumper assessment of septic shock made admitted to the intensive care unit for subsequent management. 1. Acute hypoxic respiratory failure patient was intubated weaned off the vent on the morning of 08/03/2018. Has since been managed with aerosol treatments in addition to supplemental oxygen titrated to keep sat greater than 90. Patient was transferred from intensive care unit to progressive care unit following stabilization of his condition. 2. Shock most likely from severe hypovolemic shock there was an initial presumptive diagnosis of septic shock of undetermined etiology (an initial suspicion of C. difficile however stool for C. difficile came back negative) As stated above patient has history of chronic diarrhea from his subtotal colectomy patient urine cultures grew enterococcus however with nonsignificant colonic level. Final sputum culture positive for Pseudomonas species. Antibiotic therapy deferred to infectious disease 3. Acute kidney injury ( superimposed on chronic kidney disease stage IV) patient baseline creatinine is between 2-3 was 11 on admission managed with aggressive IV fluid resuscitation creatinine 4.29 on the morning of 08/04/2018 4. Hyperkalemia secondary to above treated per protocol 5. Elevated Troponin secondary to non-STEMI type II from demand ischemia cardiology on board 6. Chronic diarrhea with In progress stool for Giardia pending 7. Chronic kidney disease stage IV patient presented with worsening kidney function as a result of acute kidney injury 8. History of colon cancer status post subtotal colectomy patient remains in remission 9. Diabetes mellitus type 2 ; Accu-Cheks before meals and at bedtime with sliding scale coverage 10. CAD with previous CABG and subsequent stent placement 11. 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 COPD currently not in exacerbation 13. Obstructive sleep apnea with history of noncompliance with CPAP 14. Paroxysmal atrial fibrillation 15. Dyslipidemia 16. Gout 17. BPH 18. Accelerated hypertension sent home medications adjusted discontinued both lisinopril and losartan initiated amlodipine blood pressure improving since that adjustment 19. DVT prophylaxis: Heparin Code Visit Inpatient E&M: 97680 Subs Hosp L2
--- NOTE | 2018-08-05 08:19 | PN_ITS ---
Patient Problems: Active and Suspected Problems (Last Reviewed 08/01/18 @ 13:11 by Jose J Tucker DO) Hypotension, unspecified (Acute) Severe sepsis (Acute) Pseudomembranous enterocolitis (Acute) Hyperkalemia, diminished renal excretion (Acute) Cholelithiasis (Acute) Infectious encephalopathy (Acute) Uremia of renal origin (Acute) Hyperglycemia due to type 2 diabetes mellitus (Acute) Septic shock (Acute) NICK (acute kidney injury) (Acute) C. difficile colitis (Acute) Hyperkalemia (Acute) Metabolic acidosis (Acute) Hyponatremia (Acute) NSTEMI (non-ST elevated myocardial infarction) (Acute) Subjective: Patient seen clinical condition continues to improve. Final sputum cultures came back positive for Pseudomonas species as well as presumptive Mellissa albicans. Added amlodipine to patient antihypertensive regimen on 08/04/2018 Microbiology 08/01/18 14:30 Gram Stain - Final Sputum, Induced/Lukens Respiratory Culture - Final Pseudomonas putida Presumptive C albicans 08/04/18 01:30 Enteric Bacteriology - Final Stool 08/02/18 04:20 Urine Culture - Final Urine Catheter - Catheter Enterococcus faecalis Objective: GENERAL: Cooperative HEENT: Atraumatic; moist oral mucosa EYES; Anicteric, Normal Conjunctiva NECK; supple, normal thyroid, RESPIRATORY: Diminished to auscultation bilaterally, CARDIOVASCULAR: Regular S1 S2, GI: soft, non-tender, normoactive bowel sounds, : No Renal angle tenderness; EXTREMITIES: edema, no clubbing, no cyanosis. MUSCULOSKELETAL: No Joint Tenderness; NEURO: Awake; no lateralizing signs. SKIN: No Rash PSYCH; Normal affect Vitals/I&O's: Vital Signs Temp Pulse Resp BP Pulse Ox 98.7 F 70 18 147/63 H 97 08/05/18 04:30 08/05/18 07:19 08/05/18 04:30 08/05/18 04:30 08/05/18 04:30 Oxygen Flow Rate (L/min) 2 Oxygen Delivery Method Room Air Weight: 99.3 kg Body Mass Index (BMI) 29.3 Intake and Output for Last 24 Hours 08/03/18 08/04/18 08/05/18 23:59 23:59 23:59 Intake Total 3922 / 3922 709.6 / 709.6 500.2 / 500.2 Output Total 2950 / 2950 375 / 375 1075 / 1075 Balance 972 / 972 334.6 / 334.6 -574.8 / -574.8 Microbiology Past 72 Hours 08/01/18 14:30 Sputum, Induced/Lukens Gram Stain - Final 08/01/18 14:30 Sputum, Induced/Lukens Respiratory Culture - Final Pseudomonas putida Presumptive C albicans 08/04/18 01:30 Stool Enteric Bacteriology - Final 08/02/18 04:20 Urine Catheter - Catheter Urine Culture - Final Enterococcus faecalis 08/01/18 10:13 Blood Culture (Wb) - Anticubital Right Blood Culture - Preliminary No growth in 48 hours. 08/03/18 02:30 Stool C. difficile DNA Amplification - Final Laboratory Results 08/01/18 14:30: Hep Bs Antigen Negative, Hep B Core Total Ab Negative 08/04/18 11:36: POC Glucose 185 H 08/04/18 16:45: POC Glucose 214 H 08/04/18 21:15: POC Glucose 188 H 08/05/18 04:25: WBC 8.4, RBC 3.29 L, Hgb 9.5 L, Hct 28.7 L, MCV 87.2, MCH 28.9, MCHC 33.1, RDW 14.5, RDW Differential 43.9, Plt Count 179, MPV 12.6 H, Immature Gran % (Auto) 0.800, Neut % (Auto) 57.9, Lymph % (Auto) 21.2, [place] % (Auto) 7.1, Eos % (Auto) 12.8 H, Baso % (Auto) 0.2, Absolute Neuts (auto) 4.9, Absolute Lymphs (auto) 1.79, Total Counted Not Reportable 08/05/18 04:25: Sodium 146 H, Potassium 4.1, Chloride 113 H, Carbon Dioxide 24.0, Anion Gap 9, BUN 51 H, Creatinine 3.35 H, Estim Creat Clear Calc 24.77, Est GFR (MDRD) Af Amer 24 L, Est GFR (MDRD) Non-Af 20 L, BUN/Creatinine Ratio 15.2, Glucose 160 H, Calcium 8.0 L, Magnesium 1.5 L 08/05/18 06:35: POC Glucose 141 H Current Medications Albuterol Sulfate (Ventolin Aerosols) 2.5 mg INHALATION Q4H PRN PRN PRN Reason: SOB &/OR WHEEZING Allopurinol (Zyloprim) 300 mg PO DAILY [facility] Amiodarone HCl (Cordarone) 200 mg PO TID [facility] Last Admin: 08/05/18 06:27 Dose: 200 mg Amlodipine Besylate (Norvasc) 10 mg PO DAILY [facility] Aspirin (Aspirin, Baby) 81 mg PO DAILY@0800 [facility] Last Admin: 08/04/18 07:52 Dose: 81 mg Atorvastatin Calcium (Lipitor) 80 mg PO QHS [facility] Last Admin: 08/04/18 21:21 Dose: 80 mg Clopidogrel Bisulfate (Plavix) 75 mg PO DAILY [facility] Last Admin: 08/04/18 07:51 Dose: 75 mg Colchicine (Colchicine) 0.6 mg PO TID PRN PRN PRN Reason: GOUT Diazepam (Valium) 5 mg PO DAILY PRN PRN Reason: ANXIETY Last Admin: 08/04/18 17:15 Dose: 5 mg Ergocalciferol (Vitamin D) 50,000 unit PO Q14D [facility] Finasteride (Proscar) 5 mg PO DAILY [facility] Glucagon () 1 mg IM .X1 PRN PRN Reason: Hypoglycemia Heparin Sodium (Porcine) (Heparin Na) 5,000 unit SC Q8 [facility] Last Admin: 08/05/18 06:33 Dose: 5,000 unit Hydralazine HCl (Apresoline) 25 mg PO BID [facility] Last Admin: 08/04/18 21:19 Dose: 25 mg Hydralazine HCl (Apresoline Iv) 10 mg IV Q4H PRN PRN PRN Reason: for SBP > 150 Last Admin: 08/04/18 18:46 Dose: 10 mg Piperacillin Sod/Tazobactam (Sod 3.375 gm/ Sodium Chloride) 50 mls @ 12.5 mls/hr IV Q12 [facility] Last Admin: 08/04/18 21:21 Dose: 12.5 mls/hr Magnesium Sulfate 2 gm/ Sodium (Chloride) 104 mls @ 52 mls/hr IV X1 ONE Stop: 08/05/18 09:59 Insulin Glargine (Lantus (Bkc)) 60 units SC BID [facility] Last Admin: 08/04/18 21:19 Dose: 60 units Insulin Human Lispro (Humalog Kwikpen ([facility])) 0 unit SC ACHS [facility]; Protocol Last Admin: 08/05/18 06:38 Dose: Not Given Insulin Human Lispro (Humalog Kwikpen (Bkc)) 5 unit SC TIDCM [facility] Last Admin: 08/04/18 17:24 Dose: 5 units Ipratropium [place] (Atrovent) 0.5 mg INHALATION Q6HWA.RT [facility] Last Admin: 08/04/18 19:50 Dose: 0.5 mg Isosorbide Mononitrate (Imdur) 30 mg PO DAILY [facility] Metoprolol Succinate (Toprol Xl (Beta Vanesa)) 50 mg PO DAILY [facility] Last Admin: 08/04/18 07:51 Dose: 50 mg Nitroglycerin (Nitrostat) 0.4 mg SUBLINGUAL Q5M PRN PRN Reason: Chest Pain Ondansetron HCl (Zofran) 4 mg IV Q8H PRN PRN PRN Reason: NAUSEA/VOMITING Oxycodone HCl (Oxyir) 5 mg PO BID PRN PRN PRN Reason: SEVERE PAIN (6-10/10) Last Admin: 08/03/18 21:39 Dose: 5 mg Pantoprazole Sodium (Protonix) 40 mg PO DAILY [facility] Last Admin: 08/04/18 07:54 Dose: 40 mg Prochlorperazine Edisylate (Compazine Iv) 5 mg IV Q4H PRN PRN PRN Reason: Breakthrough Nausea/Vomiting Sodium Bicarbonate (Sodium Bicarbonate) 650 mg PO TID [facility] Last Admin: 08/05/18 06:27 Dose: 650 mg Sodium Chloride () 5 - 15 ml IV UD PRN PRN Reason: SALINE FLUSH Last Admin: 08/04/18 21:33 Dose: 10 ml Sodium Chloride () 10 - 40 ml IV UD PRN PRN Reason: MULTILUMEN/HICMAN CATH FLUSH Last Admin: 08/05/18 04:26 Dose: 30 ml Tamsulosin HCl (Flomax) 0.4 mg PO DAILY@1730 [facility] Last Admin: 08/04/18 17:43 Dose: 0.4 mg Throat Lozenges (Cepacol Sore Throat Lozenge) 1 lozenge MUCOUS MEM Q2H PRN PRN PRN Reason: SORE THROAT Last Admin: 08/03/18 21:39 Dose: 1 lozenge Medical Necessity - Tobacco Use Smoking Status: Current some day smoker Assessment/Plan All Active Problems (Last Reviewed 08/01/18 @ 13:11 by Jose J Tucker DO) Hypotension, unspecified (Acute) Severe sepsis (Acute) Pseudomembranous enterocolitis (Acute) Hyperkalemia, diminished renal excretion (Acute) Cholelithiasis (Acute) Infectious encephalopathy (Acute) Uremia of renal origin (Acute) Hyperglycemia due to type 2 diabetes mellitus (Acute) Septic shock (Acute) NICK (acute kidney injury) (Acute) C. difficile colitis (Acute) Hyperkalemia (Acute) Metabolic acidosis (Acute) Hyponatremia (Acute) NSTEMI (non-ST elevated myocardial infarction) (Acute) Gastroenteritis (Acute) NICK (acute kidney injury) (Acute) Hyperkalemia (Acute) Acute renal failure superimposed on stage 4 chronic kidney disease (Acute) Metabolic acidosis (Acute) Acute exacerbation of chronic obstructive pulmonary disease (COPD) (Resolved) Acute respiratory failure with hypoxemia (Resolved) Benign neoplasm of right lung (Resolved) Influenza B (Resolved) Lower GI bleed (Resolved) Severe sepsis (Resolved) Streptococcal pneumonia (Resolved) Urinary retention due to benign prostatic hyperplasia (Resolved) Patient is a 62-year-old gentleman with multiple comorbidities including previous subtotal colectomy with chronic diarrhea admitted with increasing generalized weakness. Patient was found to be hypotensive and tachypneic. Patient was intubated in the emergency department. Metal Loader assessment of septic shock made admitted to the intensive care unit for subsequent management. 1. Acute hypoxic respiratory failure patient was intubated weaned off the vent on the morning of 08/03/2018. Has since been managed with aerosol treatments in addition to supplemental oxygen titrated to keep sat greater than 90. Patient was transferred from intensive care unit to progressive care unit following stabilization of his condition. 2. Shock most likely from severe hypovolemic shock there was an initial presumptive diagnosis of septic shock of undetermined etiology (an initial suspicion of C. difficile however stool for C. difficile came back negative) As stated above patient has history of chronic diarrhea from his subtotal colectomy patient urine cultures grew enterococcus however with nonsignificant colonic le stella. Final sputum culture positive for Pseudomonas species. Antibiotic therapy deferred to infectious disease 3. Acute kidney injury ( superimposed on chronic kidney disease stage IV) patient baseline creatinine is between 2-3 was 11 on admission managed with aggressive IV fluid resuscitation creatinine 4.29 on the morning of 08/04/2018 4. Hyperkalemia secondary to above treated per protocol 5. Elevated Troponin secondary to non-STEMI type II from demand ischemia cardiology on board 6. Chronic diarrhea with In progress stool for Giardia pending 7. Chronic kidney disease stage IV patient presented with worsening kidney function as a result of acute kidney injury 8. History of colon cancer status post subtotal colectomy patient remains in remission 9. Diabetes mellitus type 2 ; Accu-Cheks before meals and at bedtime with sliding scale coverage 10. CAD with previous CABG and subsequent stent placement 11. 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 COPD currently not in exacerbation 13. Obstructive sleep apnea with history of noncompliance with CPAP 14. Paroxysmal atrial fibrillation 15. Dyslipidemia 16. Gout 17. BPH 18. Accelerated hypertension sent home medications adjusted discontinued both lisinopril and losartan initiated amlodipine blood pressure improving since that adjustment 19. DVT prophylaxis: Heparin Code Visit Inpatient E&M: 31652 Subs Hosp L2
--- NOTE | 2018-08-05 08:28 | PN.CARD_ITS ---
Subjectve: Patient seen and evaluated. Objective: Vital Signs Temp Pulse Resp BP Pulse Ox 98.7 F 70 18 147/63 H 97 08/05/18 04:30 08/05/18 07:19 08/05/18 04:30 08/05/18 04:30 08/05/18 04:30 Oxygen Flow Rate (L/min) 2 Oxygen Delivery Method Room Air Weight: 218 lb 14.704 oz Body Mass Index (BMI) 29.3 Intake and Output for Last 24 Hours 08/03/18 08/04/18 08/05/18 23:59 23:59 23:59 Intake Total 3922 / 3922 709.6 / 709.6 500.2 / 500.2 Output Total 2950 / 2950 375 / 375 1075 / 1075 Balance 972 / 972 334.6 / 334.6 -574.8 / -574.8 General: Awake, Alert, Oriented x 3 HEENT: PERRL, EOMI, Sclera Non Icteric Neck: Supple, Good ROM, No Lymph Node Enlargement Lungs: Clear to auscultation Cardiovascular: Regular Rhythm, Normal S1, Normal S2, No Murmurs, No Rubs, No Gallops Vascular: No Carotid Bruits, Normal Femoral Pulses, Normal Radial Pulses, Normal Dorsalis Pedal Pulse, Normal Posterior Tibial Pulses Abdomen: Bowel Sounds Present, Soft, Non Tender, No HSM, No Organomegaly Extremities: No Cyanosis, No Clubbing, No edema Musculoskeletal: No Erythema Lymphatic: No Lymph Node Enlargement Neurological: No Focal Motor or Sensory Deficit Psych/Mental Status: Appropriate 08/05/18 04:25: WBC 8.4, RBC 3.29 L, Hgb 9.5 L, Hct 28.7 L, MCV 87.2, MCH 28.9, MCHC 33.1, RDW 14.5, RDW Differential 43.9, Plt Count 179, MPV 12.6 H, Immature Gran % (Auto) 0.800, Neut % (Auto) 57.9, Lymph % (Auto) 21.2, [place] % (Auto) 7.1, Eos % (Auto) 12.8 H, Baso % (Auto) 0.2, Absolute Neuts (auto) 4.9, Total Counted Not Reportable 08/05/18 04:25: Sodium 146 H, Potassium 4.1, Chloride 113 H, Carbon Dioxide 24.0, Anion Gap 9, BUN 51 H, Creatinine 3.35 H, Est GFR (MDRD) Af Amer 24 L, Est GFR (MDRD) Non-Af 20 L, BUN/Creatinine Ratio 15.2, Glucose 160 H, Calcium 8.0 L, Magnesium 1.5 L Rhythm: EKG: ECHO: Stress Test: Cardiac Cath: PCI: CT Surgery: Holter monitor: EPS: PPM: CXR: Chest CT Scan: Medical Necessity - Tobacco Use Smoking Status: Current some day smoker Assessment/Plan 1. NSTEMI The patient is in the PCU undergoing evaluation care of the aforementioned multiple medical issues. He has been found to have abnormal cardiac enzymes compatible with an acute non-ST segment elevation AK. This may be a secondary type II event related to his underlying noncardiovascular condition with respect to his hypotension, metabolic acidosis, hyperkalemia, with acute on chronic renal insufficiency secondary to his sepsis syndrome. * His echocardiogram demonstrated overall preserved left ventricular systolic function * This time my recommendation be for us to follow him medically and see how he recovers from his underlying clinical condition. 2. CAD status post PCI He does have a history of underlying CAD and PCI as noted above. Again, at the present time, he is cardiac enzyme change may be a type II event secondary to supply demand mismatch secondary to his multiple noncardiovascular issues in progress. He will continue to be monitored. He will continue noninvasive evaluation. He will continue medical therapy and support. 3. Paroxysmal atrial fibrillation He has a history of underlying paroxysmal atrial fibrillation. He was evaluated in cardiovascular consultation for such in April 2017. At that time he did not receive anticoagulant therapy secondary to concerns of underlying gastrointestinal related bleeding process. 4. Nonsustained wide-complex tachycardia He had an episode of nonsustained wide-complex tachycardia. It may be compatible with nonsustained ventricular tachycardia. Based upon his ongoing noncardiac and cardiac issues he will continue to be followed and treated medically. Thank you for allowing me to participate in the care of your patient. Please don't hesitate to call if any issues arise
[2018-08-05] MEDS: Aspirin 81 MG TAB.CHEW PO (08:58)
[2018-08-05] MEDS: Insulin Lispro 100 UNIT/ML INSULN.PEN SC ×3 (08:59→12:36)
[2018-08-05] MEDS: Ferrous Sulfate 325 MG Tablet PO (08:59)
[2018-08-05] MEDS: hydrALAZINE 25 MG Tablet PO (09:00)
[2018-08-05] MEDS: Isosorbide Mononitrate 30 MG Tablet PO (09:00)
[2018-08-05] MEDS: Clopidogrel Bisulfate 75 MG Tablet PO (09:01)
[2018-08-05] MEDS: amLODIPine 10 MG Tablet PO (09:01)
[2018-08-05] MEDS: Finasteride 5 MG Tablet PO (09:01)
[2018-08-05] MEDS: Allopurinol 300 MG Tablet PO (09:02)
[2018-08-05] MEDS: Metoprolol(XL)Succ 50 MG Tablet PO (09:06)
[2018-08-05] MEDS: Pantoprazole Sodium 40 MG Tablet PO (09:06)
[2018-08-05 11:31] LABS: Bedside Glucose 286 mg/dL (70-110)
--- NOTE | 2018-08-05 12:28 | PN.RENAL_ITS ---
Patient Problems: Active and Suspected Problems (Last Reviewed 08/01/18 @ 13:11 by Jose J Tucker DO) Hypotension, unspecified (Acute) Severe sepsis (Acute) Pseudomembranous enterocolitis (Acute) Hyperkalemia, diminished renal excretion (Acute) Cholelithiasis (Acute) Infectious encephalopathy (Acute) Uremia of renal origin (Acute) Hyperglycemia due to type 2 diabetes mellitus (Acute) Septic shock (Acute) NICK (acute kidney injury) (Acute) C. difficile colitis (Acute) Hyperkalemia (Acute) Metabolic acidosis (Acute) Hyponatremia (Acute) NSTEMI (non-ST elevated myocardial infarction) (Acute) Subjective: renal function continues to improve. Formed stools. No edema. oxygenation stable - Physical Exam General: Alert, Oriented x3, Cooperative, No apparent distress Abdomen: Bowel Sounds Present, Soft, Non Tender, Non-Distended Extremities: No edema Vital Signs Temp Pulse Resp BP Pulse Ox 97.9 F 100 18 127/77 H 98 08/05/18 08:35 08/05/18 11:15 08/05/18 08:35 08/05/18 08:35 08/05/18 08:35 Oxygen Flow Rate (L/min) 2 Oxygen Delivery Method Room Air Weight: 99.3 kg Body Mass Index (BMI) 29.3 Intake and Output for Last 24 Hours 08/03/18 08/04/18 08/05/18 23:59 23:59 23:59 Intake Total 3922 / 3922 709.6 / 709.6 834.2 / 834.2 Output Total 2950 / 2950 375 / 375 1525 / 1525 Balance 972 / 972 334.6 / 334.6 -690.8 / -690.8 Microbiology Past 72 Hours 08/01/18 14:30 Gram Stain - Final Sputum, Induced/Lukens Respiratory Culture - Final Pseudomonas putida Presumptive C albicans 08/04/18 01:30 Enteric Bacteriology - Final Stool 08/02/18 04:20 Urine Culture - Final Urine Catheter - Catheter Enterococcus faecalis 08/01/18 10:13 Blood Culture - Preliminary Blood Culture (Wb) - Anticubital Right No growth in 48 hours. 08/03/18 02:30 C. difficile DNA Amplification - Final Stool Laboratory Tests Past 24 Hrs 08/01/18 08/05/18 08/05/18 14:30 04:25 04:25 WBC 8.4 RBC 3.29 L Hgb 9.5 L Hct 28.7 L MCV 87.2 MCH 28.9 MCHC 33.1 RDW 14.5 RDW Differential 43.9 Plt Count 179 MPV 12.6 H Immature Gran % (Auto) 0.800 Neut % (Auto) 57.9 Lymph % (Auto) 21.2 [place] % (Auto) 7.1 Eos % (Auto) 12.8 H Baso % (Auto) 0.2 Absolute Neuts (auto) 4.9 Absolute Lymphs (auto) 1.79 Total Counted Not Reportable Sodium 146 H Potassium 4.1 Chloride 113 H Carbon Dioxide 24.0 Anion Gap 9 BUN 51 H Creatinine 3.35 H Estim Creat Clear Calc 24.77 Est GFR (MDRD) Af Amer 24 L Est GFR (MDRD) Non-Af 20 L BUN/Creatinine Ratio 15.2 Glucose 160 H Calcium 8.0 L Magnesium 1.5 L Hep Bs Antigen Negative Hep B Core Total Ab Negative POC Glucose 08/05/18 08/05/18 08/04/18 11:27 06:35 21:15 POC Glucose 286 H 141 H 188 H 08/04/18 16:45 POC Glucose 214 H Medical Necessity - Tobacco Use Smoking Status: Current some day smoker Assessment/Plan All Active Problems (Last Reviewed 08/01/18 @ 13:11 by Jose J Tucker DO) Hypotension, unspecified (Acute) Severe sepsis (Acute) Pseudomembranous enterocolitis (Acute) Hyperkalemia, diminished renal excretion (Acute) Cholelithiasis (Acute) Infectious encephalopathy (Acute) Uremia of renal origin (Acute) Hyperglycemia due to type 2 diabetes mellitus (Acute) Septic shock (Acute) NICK (acute kidney injury) (Acute) C. difficile colitis (Acute) Hyperkalemia (Acute) Metabolic acidosis (Acute) Hyponatremia (Acute) NSTEMI (non-ST elevated myocardial infarction) (Acute) Gastroenteritis (Acute) NICK (acute kidney injury) (Acute) Hyperkalemia (Acute) Acute renal failure superimposed on stage 4 chronic kidney disease (Acute) Metabolic acidosis (Acute) Acute exacerbation of chronic obstructive pulmonary disease (COPD) (Resolved) Acute respiratory failure with hypoxemia (Resolved) Benign neoplasm of right lung (Resolved) Influenza B (Resolved) Lower GI bleed (Resolved) Severe sepsis (Resolved) Streptococcal pneumonia (Resolved) Urinary retention due to benign prostatic hyperplasia (Resolved) 1. Shock sepsis requiring pressor support. BP stable Tolerating diet well. 2. Acute kidney injury likely due to shock sepsis, ATN. Creatinine improving. 3. Acute hyperkalemia with cardiac arrhythmia. resolved 4. History of C. difficile colitis continue to treat empirically for now. Leukocytosis without fever. Enterococcus in urine, GNR in sputum 5. Metabolic acidosis resolved 6. Acute respiratory failure with hypoxemia extubated today 7. Acute metabolic encephalopathy resolved
--- NOTE | 2018-08-05 13:26 | PCM.PN.ID ---
Patient Problems: Active and Suspected Problems (Last Reviewed 08/01/18 @ 13:11 by Jose J Tucker DO) Hypotension, unspecified (Acute) Severe sepsis (Acute) Pseudomembranous enterocolitis (Acute) Hyperkalemia, diminished renal excretion (Acute) Cholelithiasis (Acute) Infectious encephalopathy (Acute) Uremia of renal origin (Acute) Hyperglycemia due to type 2 diabetes mellitus (Acute) Septic shock (Acute) NICK (acute kidney injury) (Acute) C. difficile colitis (Acute) Hyperkalemia (Acute) Metabolic acidosis (Acute) Hyponatremia (Acute) NSTEMI (non-ST elevated myocardial infarction) (Acute) Subjective: Feeling good, no fever, no abd pain - Physical Exam General: Alert, Cooperative, No apparent distress Lungs: Clear to auscultation, Normal air movement Cardiovascular: Regular rate, Regular Rhythm Abdomen: Soft, Non Tender, Non-Distended Skin: No rashes Vital Signs Temp Pulse Resp BP Pulse Ox 97.9 F 100 18 127/77 H 98 08/05/18 08:35 08/05/18 11:15 08/05/18 08:35 08/05/18 08:35 08/05/18 08:35 Oxygen Flow Rate (L/min) 2 Oxygen Delivery Method Room Air Weight: 99.3 kg Body Mass Index (BMI) 29.3 Intake and Output for Last 24 Hours 08/03/18 08/04/18 08/05/18 23:59 23:59 23:59 Intake Total 3922 / 3922 709.6 / 709.6 834.2 / 834.2 Output Total 2950 / 2950 375 / 375 1525 / 1525 Balance 972 / 972 334.6 / 334.6 -690.8 / -690.8 Microbiology Past 72 Hours 08/01/18 14:30 Gram Stain - Final Sputum, Induced/Lukens Respiratory Culture - Final Pseudomonas putida Presumptive C albicans 08/04/18 01:30 Enteric Bacteriology - Final Stool 08/02/18 04:20 Urine Culture - Final Urine Catheter - Catheter Enterococcus faecalis 08/01/18 10:13 Blood Culture - Preliminary Blood Culture (Wb) - Anticubital Right No growth in 48 hours. 08/03/18 02:30 C. difficile DNA Amplification - Final Stool Laboratory Tests Past 24 Hrs 05/08/05/18 08/05/18 14:30 04:25 04:25 WBC 8.4 RBC 3.29 L Hgb 9.5 L Hct 28.7 L MCV 87.2 MCH 28.9 MCHC 33.1 RDW 14.5 RDW Differential 43.9 Plt Count 179 MPV 12.6 H Immature Gran % (Auto) 0.800 Neut % (Auto) 57.9 Lymph % (Auto) 21.2 [place] % (Auto) 7.1 Eos % (Auto) 12.8 H Baso % (Auto) 0.2 Absolute Neuts (auto) 4.9 Absolute Lymphs (auto) 1.79 Total Counted Not Reportable Sodium 146 H Potassium 4.1 Chloride 113 H Carbon Dioxide 24.0 Anion Gap 9 BUN 51 H Creatinine 3.35 H Estim Creat Clear Calc 24.77 Est GFR (MDRD) Af Amer 24 L Est GFR (MDRD) Non-Af 20 L BUN/Creatinine Ratio 15.2 Glucose 160 H Calcium 8.0 L Magnesium 1.5 L Hep Bs Antigen Negative Hep B Core Total Ab Negative POC Glucose 08/05/18 08/05/18 08/04/18 11:27 06:35 21:15 POC Glucose 286 H 141 H 188 H 08/04/18 16:45 POC Glucose 214 H Medical Necessity - Tobacco Use Smoking Status: Current some day smoker Route of nutrition/ use of supplements: [] Nutritional Intake: [] IV Site: [] Hoff Catheter: [] - Assessment/Plan Antibiotics: [] Assessment/Plan: [] Active and Suspected Problems (Last Reviewed 08/01/18 @ 13:11 by Jose J Tucker DO) Hypotension, unspecified (Acute) Severe sepsis (Acute) Pseudomembranous enterocolitis (Acute) Hyperkalemia, diminished renal excretion (Acute) Cholelithiasis (Acute) Infectious encephalopathy (Acute) Uremia of renal origin (Acute) Hyperglycemia due to type 2 diabetes mellitus (Acute) Septic shock (Acute) NICK (acute kidney injury) (Acute) C. difficile colitis (Acute) Hyperkalemia (Acute) Metabolic acidosis (Acute) Hyponatremia (Acute) NSTEMI (non-ST elevated myocardial infarction) (Acute) septic shock - unclear cause. Cdiff here and at PCP's office was neg. On zosyn. Ucx with some enterococcus, sputum with some pseudomonas. Pending stool pcr panel. Day 5 of abx. Ok for d/c home on 2 more days of levaquin to cover what he has grown. Will follow
--- NOTE | 2018-08-05 13:55 | PCM.DC ---
- Discharge Diagnoses Current Active Problems: Current Active and Chronic Problems (Last Reviewed 08/01/18 @ 13:11 by Jose J Tucker DO) Hypotension, unspecified (Acute) Severe sepsis (Acute) Pseudomembranous enterocolitis (Acute) Acute renal failure superimposed on stage 3 chronic kidney disease (Chronic) Hyperkalemia, diminished renal excretion (Acute) Cholelithiasis (Acute) Infectious encephalopathy (Acute) Uremia of renal origin (Acute) Hyperglycemia due to type 2 diabetes mellitus (Acute) Septic shock (Acute) NICK (acute kidney injury) (Acute) C. difficile colitis (Acute) Hyperkalemia (Acute) Metabolic acidosis (Acute) Hyponatremia (Acute) NSTEMI (non-ST elevated myocardial infarction) (Acute) S/P PTCA (percutaneous transluminal coronary angioplasty) (Chronic) HLD (hyperlipidemia) (Chronic) You will use the following diet at home:: Renal (restricted protein/sodium) Allergies/Adverse Reactions: Allergies No Known Allergies Allergy (Verified 08/01/18 09:50) Medications to take at Discharge Aspirin 81 mg PO DAILY 05/14/17 Nitroglycerin (INPATIENT USE) [Nitrostat] 0.4 mg SUBLINGUAL Q5M PRN 05/14/17 Oxycodone [Oxyir] 5 mg PO BID PRN PRN 05/14/17 Simvastatin 80 mg PO QHS 05/14/17 Oxygen, Home [Home Oxygen] 2 - 3 lpm NASAL UD #1 unit 05/18/17 Albuterol Aerosols [Ventolin Aerosols] 2.5 mg INHALATION Q4H PRN PRN 09/15/17 Allopurinol [Zyloprim] 300 mg PO DAILY 09/15/17 Cilostazol 50 mg PO BID 09/15/17 Colchicine 0.6 mg PO TID PRN 09/15/17 Ergocalciferol [Vitamin D] 50,000 unit PO Q7D 09/15/17 Finasteride [Proscar] 5 mg PO DAILY 09/15/17 Isosorbide Mononitrate [Imdur] 30 mg PO DAILY 09/15/17 Metoprolol(XL)Succ [Toprol Xl (Beta Vanesa)] 50 mg PO DAILY 09/15/17 Pantoprazole Sodium [Protonix] 40 mg PO DAILY 09/15/17 Tamsulosin HCl [Flomax] 0.4 mg PO DAILY@1730 09/15/17 hydrALAZINE [Apresoline] 25 mg PO BID 09/15/17 umeclidinium 62.5 mcg/actuation blister powder for inhalation 1 inh INHALATION QDAY #30 ea 04/22/18 Albuterol Inhaler [Ventolin Hfa] 1 - 2 puff INHALATION Q4H PRN PRN 05/12/18 Diazepam [Valium] 5 mg PO DAILY PRN 05/12/18 Insulin Aspart [Novolog Flexpen] 5 units SC TIDCM #0 05/16/18 Insulin Degludec [Tresiba Flextouch U-100] 20 unit SC QHS #0 05/16/18 Sodium Bicarbonate 650 mg PO TID #90 tablet 06/03/18 Blood Sugar Diagnostic [Contour Next Test Strip] 1 strip 4X/DAY 08/04/18 Clopidogrel Bisulfate [Clopidogrel] 75 mg PO DAILY 08/04/18 Ferrous Sulfate 325 mg PO DAILY 08/04/18 Insulin Degludec [Tresiba Flextouch U-200] 60 unit SQ BID 08/04/18 Amiodarone HCl [Cordarone] 200 mg PO BID #60 tablet 08/05/18 Amlodipine [Norvasc] 10 mg PO DAILY #30 tablet 08/05/18 hydrALAZINE [Apresoline] 25 mg PO BID #60 tablet 08/05/18 levoFLOXacin tablet [Levaquin tablet] 250 mg PO DAILY #2 tablet 08/05/18 The following prescriptions were given: Amiodarone HCl [Cordarone] 200 mg PO BID #60 tablet Amlodipine [Norvasc] 10 mg PO DAILY #30 tablet hydrALAZINE [Apresoline] 25 mg PO BID #60 tablet levoFLOXacin tablet [Levaquin tablet] 250 mg PO DAILY #2 tablet Primary Care Physician: Caesar Chavez DO [Primary Care Provider] - Please follow up with your Primary Care Physician in: IN 5- 7 DAYS Test Results: Test results from this visit will be discussed in further detail at your follow-up appointment, if applicable. Please Follow Up With: Daysi Magana DO When: IN 1-2 WEEKS Proposed Discharge Date: 08/05/18
--- NOTE | 2018-08-05 13:57 | PCM.DC.SUM ---
Discharge Date and Diagnosis - Problem List Patient Problems: Active and Suspected Problems (Last Reviewed 08/01/18 @ 13:11 by Jose J Tucker DO) Hypotension, unspecified (Acute) Severe sepsis (Acute) Pseudomembranous enterocolitis (Acute) Hyperkalemia, diminished renal excretion (Acute) Cholelithiasis (Acute) Infectious encephalopathy (Acute) Uremia of renal origin (Acute) Hyperglycemia due to type 2 diabetes mellitus (Acute) Septic shock (Acute) NICK (acute kidney injury) (Acute) C. difficile colitis (Acute) Hyperkalemia (Acute) Metabolic acidosis (Acute) Hyponatremia (Acute) NSTEMI (non-ST elevated myocardial infarction) (Acute) Date of Admission: 08/01/18 Date of Discharge: 08/05/18 - Primary Discharge Diagnosis Active and Suspected Problems (Last Reviewed 08/01/18 @ 13:11 by Jose J Tucker DO) Hypotension, unspecified (Acute) Severe sepsis (Acute) Pseudomembranous enterocolitis (Acute) Hyperkalemia, diminished renal excretion (Acute) Cholelithiasis (Acute) Infectious encephalopathy (Acute) Uremia of renal origin (Acute) Hyperglycemia due to type 2 diabetes mellitus (Acute) Septic shock (Acute) NICK (acute kidney injury) (Acute) C. difficile colitis (Acute) Hyperkalemia (Acute) Metabolic acidosis (Acute) Hyponatremia (Acute) NSTEMI (non-ST elevated myocardial infarction) (Acute) - Secondary Discharge Diagnosis Chronic Problems (Last Reviewed 08/01/18 @ 13:11 by Jose J Tucker DO) Acute renal failure superimposed on stage 3 chronic kidney disease (Chronic) S/P PTCA (percutaneous transluminal coronary angioplasty) (Chronic) HLD (hyperlipidemia) (Chronic) Clostridium difficile colitis (Chronic) Chronic hypoxemic respiratory failure (Chronic) 2-3 LPM chronically Colon cancer (Chronic) had surgery with no chemo or radiation at [facility] fall Status post colon resection (Chronic) subtotal for colon CA in the fall at [facility] Hemorrhoids (Chronic) CKD (chronic kidney disease) stage 4, GFR 15-29 ml/min (Chronic) Nicotine dependence, cigarettes, in remission (Chronic) Stage 3 severe COPD by GOLD classification (Chronic) FEV1 37% predicted Heme + stool (Chronic) Anemia of chronic renal failure (Chronic) H/O pneumonectomy (Chronic) Right LL lobectomy due to benign tumor Peripheral vascular disease (Chronic) Radiculopathy affecting upper extremity (Chronic) Iron deficiency anemia (Chronic) Increased PTH level (Chronic) secondary to CRF stage4 Low vitamin D level (Chronic) Paroxysmal atrial fibrillation (Chronic) Nocturnal hypoxia (Chronic) Noncompliance with CPAP treatment (Chronic) LADARIUS (obstructive sleep apnea) (Chronic) Gout (Chronic) History of tobacco abuse (Chronic) quit in April 2017 Hx of CABG (Chronic) x3 2003 Coronary artery disease (Chronic) has had 3 stents.....the last stent he thinks in 2008 Hypertension (Chronic) Diabetes mellitus type 2 in obese (Chronic) Hospital Course and Treatment Imaging Results: Clinical Impression(s) from Imaging Studies Chest X-Ray 08/01/18 10:02 IMPRESSION: 1. Right subclavian central venous catheter extends into the right jugular vein/neck. Repositioning recommended. 2. Satisfactory position of endotracheal tube. 3. Bullous and fibrotic changes of the right upper lung field, similar. 4. No airspace consolidation or pneumothorax. Electronically Signed: Yves Lamb MD at 11:45 EDT , Service support , Abdomen Ultrasound 08/01/18 10:31 IMPRESSION: 1. Solitary gallstone without sonographic evidence of acute cholecystitis. 2. Mild hepatomegaly. Electronically Signed: Yves Lamb MD at 12:15 EDT , Service support , KUB X-Ray 08/01/18 14:20 IMPRESSION: Enteric tube extends to the gastric fundus. Electronically Signed: Yves Lamb MD at 15:05 EDT , Service support , Chest X-Ray 08/01/18 14:28 IMPRESSION: Satisfactory position of right subclavian central venous catheter and jugular dialysis catheter Electronically Signed: Yves Lamb MD at 15:04 EDT , Service support , KUB X-Ray 08/02/18 02:10 IMPRESSION: The enteric tube tip lies within the gastric fundus and should be advanced. No bowel obstruction seen. at 0429 Reported and signed by: Wilberto Hernandez MD Electronically Signed: Wilberto Hernandez, at 4:28 EDT Tel , Service support , KUB X-Ray 08/02/18 04:59 IMPRESSION: The enteric tube has been advanced and appears in good position. No bowel obstruction. at 0540 Reported and signed by: Wilberto Hernandez MD Electronically Signed: Wilberto Hernandez, at 5:39 EDT Tel , Service support , Microbiology 08/01/18 14:30 Sputum, Induced/Lukens Gram Stain - Final 08/01/18 14:30 Sputum, Induced/Lukens Respiratory Culture - Final Pseudomonas putida Presumptive C albicans 08/04/18 01:30 Stool Enteric Bacteriology - Final 08/02/18 04:20 Urine Catheter - Catheter Urine Culture - Final Enterococcus faecalis 08/01/18 10:13 Blood Culture (Wb) - Anticubital Right Blood Culture - Preliminary No growth in 48 hours. 08/03/18 02:30 Stool C. difficile DNA Amplification - Final Summary of Care Provided: Patient is a 62-year-old gentleman with multiple comorbidities including previous subtotal colectomy with chronic diarrhea admitted with increasing generalized weakness. Patient was found to be hypotensive and tachypneic. Patient was intubated in the emergency department. Patient Service Coordinator assessment of septic shock made admitted to the intensive care unit for subsequent management. 1. Acute hypoxic respiratory failure patient was intubated weaned off the vent on the morning of 08/03/2018. Has since been managed with aerosol treatments in addition to supplemental oxygen titrated to keep sat greater than 90. Patient was transferred from intensive care unit to progressive care unit following stabilization of his condition. 2. Shock most likely from severe hypovolemic shock there was an initial presumptive diagnosis of septic shock of undetermined etiology (an initial suspicion of C. difficile however stool for C. difficile came back negative) As stated above patient has history of chronic diarrhea from his subtotal colectomy patient urine cultures grew enterococcus however with nonsignificant colonic level. Final sputum culture positive for Pseudomonas species. Antibiotic therapy deferred to infectious disease. Patient was discharged home with Levaquin 3. Acute kidney injury ( superimposed on chronic kidney disease stage IV) patient baseline creatinine is between 2-3 was 11 on admission managed with aggressive IV fluid resuscitation creatinine 4.29 on the morning of 08/04/2018. Patient's kidney function had returned to baseline at the time of discharge 4. Hyperkalemia secondary to above treated per protocol 5. Elevated Troponin secondary to non-STEMI type II from demand ischemia cardiology on board 6. Chronic diarrhea with In progress stool for Giardia pending 7. Chronic kidney disease stage IV patient presented with worsening kidney function as a result of acute kidney injury 8. History of colon cancer status post subtotal colectomy patient remains in remission 9. Diabetes mellitus type 2 ; Accu-Cheks before meals and at bedtime with sliding scale coverage 10. CAD with previous CABG and subsequent stent placement 11. 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 COPD currently not in exacerbation 13. Obstructive sleep apnea with history of noncompliance with CPAP 14. Paroxysmal atrial fibrillation 15. Dyslipidemia 16. Gout 17. BPH 18. Accelerated hypertension sent home medications adjusted discontinued both lisinopril and losartan initiated amlodipine blood pressure improving since that adjustment 19. DVT prophylaxis: Heparin Patient Problems: Active and Suspected Problems (Last Reviewed 08/01/18 @ 13:11 by Jose J Tucker DO) Hypotension, unspecified (Acute) Severe sepsis (Acute) Pseudomembranous enterocolitis (Acute) Hyperkalemia, diminished renal excretion (Acute) Cholelithiasis (Acute) Infectious encephalopathy (Acute) Uremia of renal origin (Acute) Hyperglycemia due to type 2 diabetes mellitus (Acute) Septic shock (Acute) NICK (acute kidney injury) (Acute) C. difficile colitis (Acute) Hyperkalemia (Acute) Metabolic acidosis (Acute) Hyponatremia (Acute) NSTEMI (non-ST elevated myocardial infarction) (Acute) - Physical Exam General: No apparent distress Lungs: Diminished Neurological: Neuro grossly intact Psych/Mental Status: Normal Affect Vital Signs Temp Pulse Resp BP Pulse Ox 97.9 F 100 18 127/77 H 98 08/05/18 08:35 08/05/18 11:15 08/05/18 08:35 08/05/18 08:35 08/05/18 08:35 Oxygen Flow Rate (L/min) 2 Oxygen Delivery Method Room Air Weight: 99.3 kg Body Mass Index (BMI) 29.3 Intake and Output for Last 24 Hours 08/03/18 08/04/18 08/05/18 23:59 23:59 23:59 Intake Total 3922 / 3922 709.6 / 709.6 834.2 / 834.2 Output Total 2950 / 2950 375 / 375 1525 / 1525 Balance 972 / 972 334.6 / 334.6 -690.8 / -690.8 Microbiology Past 72 Hours 08/01/18 14:30 Gram Stain - Final Sputum, Induced/Lukens Respiratory Culture - Final Pseudomonas putida Presumptive C albicans 08/04/18 01:30 Enteric Bacteriology - Final Stool 08/02/18 04:20 Urine Culture - Final Urine Catheter - Catheter Enterococcus faecalis 08/01/18 10:13 Blood Culture - Preliminary Blood Culture (Wb) - Anticubital Right No growth in 48 hours. 08/03/18 02:30 C. difficile DNA Amplification - Final Stool Laboratory Tests Past 24 Hrs 08/01/18 08/05/18 08/05/18 14:30 04:25 04:25 WBC 8.4 RBC 3.29 L Hgb 9.5 L Hct 28.7 L MCV 87.2 MCH 28.9 MCHC 33.1 RDW 14.5 RDW Differential 43.9 Plt Count 179 MPV 12.6 H Immature Gran % (Auto) 0.800 Neut % (Auto) 57.9 Lymph % (Auto) 21.2 [place] % (Auto) 7.1 Eos % (Auto) 12.8 H Baso % (Auto) 0.2 Absolute Neuts (auto) 4.9 Absolute Lymphs (auto) 1.79 Total Counted Not Reportable Sodium 146 H Potassium 4.1 Chloride 113 H Carbon Dioxide 24.0 Anion Gap 9 BUN 51 H Creatinine 3.35 H Estim Creat Clear Calc 24.77 Est GFR (MDRD) Af Amer 24 L Est GFR (MDRD) Non-Af 20 L BUN/Creatinine Ratio 15.2 Glucose 160 H Calcium 8.0 L Magnesium 1.5 L Hep Bs Antigen Negative Hep B Core Total Ab Negative POC Glucose 08/05/18 08/05/18 08/04/18 11:27 06:35 21:15 POC Glucose 286 H 141 H 188 H 08/04/18 16:45 POC Glucose 214 H Home Medications: Medications to take at Discharge Aspirin 81 mg PO DAILY 05/14/17 Nitroglycerin (INPATIENT USE) [Nitrostat] 0.4 mg SUBLINGUAL Q5M PRN 05/14/17 Oxycodone [Oxyir] 5 mg PO BID PRN PRN 05/14/17 Simvastatin 80 mg PO QHS 05/14/17 Oxygen, Home [Home Oxygen] 2 - 3 lpm NASAL UD #1 unit 05/18/17 Albuterol Aerosols [Ventolin Aerosols] 2.5 mg INHALATION Q4H PRN PRN 09/15/17 Allopurinol [Zyloprim] 300 mg PO DAILY 09/15/17 Cilostazol 50 mg PO BID 09/15/17 Colchicine 0.6 mg PO TID PRN 09/15/17 Ergocalciferol [Vitamin D] 50,000 unit PO Q7D 09/15/17 Finasteride [Proscar] 5 mg PO DAILY 09/15/17 Isosorbide Mononitrate [Imdur] 30 mg PO DAILY 09/15/17 Metoprolol(XL)Succ [Toprol Xl (Beta Vanesa)] 50 mg PO DAILY 09/15/17 Pantoprazole Sodium [Protonix] 40 mg PO DAILY 09/15/17 Tamsulosin HCl [Flomax] 0.4 mg PO DAILY@1730 09/15/17 hydrALAZINE [Apresoline] 25 mg PO BID 09/15/17 umeclidinium 62.5 mcg/actuation blister powder for inhalation 1 inh INHALATION QDAY #30 ea 04/22/18 Albuterol Inhaler [Ventolin Hfa] 1 - 2 puff INHALATION Q4H PRN PRN 05/12/18 Diazepam [Valium] 5 mg PO DAILY PRN 05/12/18 Insulin Aspart [Novolog Flexpen] 5 units SC TIDCM #0 05/16/18 Insulin Degludec [Tresiba Flextouch U-100] 20 unit SC QHS #0 05/16/18 Sodium Bicarbonate 650 mg PO TID #90 tablet 06/03/18 Blood Sugar Diagnostic [Contour Next Test Strip] 1 strip 4X/DAY 08/04/18 Clopidogrel Bisulfate [Clopidogrel] 75 mg PO DAILY 08/04/18 Ferrous Sulfate 325 mg PO DAILY 08/04/18 Insulin Degludec [Tresiba Flextouch U-200] 60 unit SQ BID 08/04/18 Amiodarone HCl [Cordarone] 200 mg PO BID #60 tablet 08/05/18 Amlodipine [Norvasc] 10 mg PO DAILY #30 tablet 08/05/18 hydrALAZINE [Apresoline] 25 mg PO BID #60 tablet 08/05/18 levoFLOXacin tablet [Levaquin tablet] 250 mg PO DAILY #2 tablet 08/05/18 Following Prescrptions Were Given to Patient: Amiodarone HCl [Cordarone] 200 mg PO BID #60 tablet Amlodipine [Norvasc] 10 mg PO DAILY #30 tablet hydrALAZINE [Apresoline] 25 mg PO BID #60 tablet levoFLOXacin tablet [Levaquin tablet] 250 mg PO DAILY #2 tablet Primary Care Physician: Caesar Chavez DO [Primary Care Provider] - Please follow up with your Primary Care Physician in: IN 5- 7 DAYS Please Follow Up With: Daysi Magana DO When: IN 1-2 WEEKS Disposition: Home Minutes spent on discharge:: 45 Patient Condition:: Stable Medical Necessity - Tobacco Use Smoking Status: Current some day smoker Meaningful Use Info Meaningful Use Diagnoses (Choose all that apply): None applicable Code Visit Inpatient E&M: 80986 Disch Hosp
[2018-08-05] MEDS: levoFLOXacin 500 MG Tablet PO (14:45)
--- NOTE | 2018-08-06 13:51 | CASEMGMT ---
RN CM Discharge F/U Phone Call LACE: 14 Strata: 4 Discharge date: 08/05/18 Call date: 08/06/18 Call time: 1352 Attempted to reach pt without success at this time, message left for pt to call this RN CM back if/when able. S[place]en RN CM Admission dx: Septic Shock
== END 2018-08-05 16:55 | disposition home or self-care (01) | DRG 682 ==
LOC: ED 10:31 → ICU 12:58 → PCU 08-04 10:38
PROVIDERS: Family Medicine; Hospitalist; Internal Medicine Cardiovascular Disease; Internal Medicine Critical Care Medicine; Internal Medicine Nephrology; Emergency Provider Emergency Medicine; Family Provider Family Medicine; PCP Family Medicine; Visit Provider Internal Medicine
DX: N17.0 Acute kidney failure with tubular necrosis (principal); J96.21 Acute and chronic respiratory failure with hypoxia; R57.1 Hypovolemic shock; G93.41 Metabolic encephalopathy; I21.4 Non-ST elevation (NSTEMI) myocardial infarction; G93.49 Other encephalopathy; E87.2 Acidosis; E87.1 Hypo-osmolality and hyponatremia; I47.2 Ventricular tachycardia; N18.4 Chronic kidney disease, stage 4 (severe); N25.81 Secondary hyperparathyroidism of renal origin; E11.65 Type 2 diabetes mellitus with hyperglycemia; E87.5 Hyperkalemia; I12.9 Hypertensive chronic kidney disease with stage 1 through stage 4 chronic kidney disease, or unspecified chronic kidney disease; E11.21 Type 2 diabetes mellitus with diabetic nephropathy; E11.22 Type 2 diabetes mellitus with diabetic chronic kidney disease; E11.51 Type 2 diabetes mellitus with diabetic peripheral angiopathy without gangrene; Z95.1 Presence of aortocoronary bypass graft; I25.10 Atherosclerotic heart disease of native coronary artery without angina pectoris; G47.33 Obstructive sleep apnea (adult) (pediatric); Z91.19 Patient's noncompliance with other medical treatment and regimen; I48.0 Paroxysmal atrial fibrillation; D63.1 Anemia in chronic kidney disease; D50.9 Iron deficiency anemia, unspecified; E78.5 Hyperlipidemia, unspecified; Z85.038 Personal history of other malignant neoplasm of large intestine; Z90.49 Acquired absence of other specified parts of digestive tract; F17.210 Nicotine dependence, cigarettes, uncomplicated; Z79.82 Long term (current) use of aspirin; Z79.51 Long term (current) use of inhaled steroids; Z79.4 Long term (current) use of insulin; Z79.899 Other long term (current) drug therapy; E66.9 Obesity, unspecified; Z68.29 Body mass index [BMI] 29.0-29.9, adult; M54.10 Radiculopathy, site unspecified; J44.9 Chronic obstructive pulmonary disease, unspecified; Z85.118 Personal history of other malignant neoplasm of bronchus and lung; Z90.2 Acquired absence of lung [part of]; Z86.19 Personal history of other infectious and parasitic diseases; K52.9 Noninfective gastroenteritis and colitis, unspecified; B96.5 Pseudomonas (aeruginosa) (mallei) (pseudomallei) as the cause of diseases classified elsewhere
CPT/HCPCS: 31500; 31720; 36415; 36556; 36600; 71045; 74018; 76700; 80048; 80053; 80069; 80202; 81001; 82728; 82803; 82962; 83540; 83550; 83605; 83735; 84132; 84484; 85025; 85027; 85610; 85730; 86704; 87040; 87070; 87077; 87081; 87086; 87088; 87184; 87186; 87205; 87340; 87493; 87506; 87641; 90937; 93005; 93306; 94002; 94003; 94640; 94660; 95831; 97116; 97162; 97165; 97530; 97802; 99251; 99285; J7030; J7040; J7050; Q9957; A4216; C1751; C1752; C8929; G0257; G0463

== ENCOUNTER → 2018-08-12 | Outpatient (CLI) | payer MEDICARE, SELFPAY ==
[2018-08-12 06:10] VITALS: BMI 27.1
[2018-08-12 13:55] LABS: Hemoglobin 10.8 g/dl (13.0-16.5); Mean Corp Hgb Conc 31.8 g/gl (32-36); Mean Corpuscular Hgb 28.3 pg (27.0-32.0); Mean Corpuscular Volume 89.2 fL (80-94); Mean Platelet Vol. 12.2 fl (6.2-12.0); Platelet Count 347 K/mm3 (150-450); Red Blood Count 3.81 M/mm3 (4.6-6.2); Scan Indicated on CBC? Y/N NO; White Blood Count 9.6 K/mm3 (4.4-11.0)
[2018-08-12 14:19] LABS: Albumin, Serum 3.4 g/dL (3.2-5.0); BUN 43 mg/dL (7-18); BUN/Creat Ratio 15.7 RATIO (10-20); Calcium,Total 8.9 mg/dL (8.5-10.1); Chloride 111 mmol/L (98-107); Creatinine, Serum 2.74 mg/dL (0.70-1.30); EST Glomerular Filtration Rate 25 mL/min (>60); Est Glom Filt Rate - Afr Amer 30 mL/min (>60); Ferritin 36 ng/mL (26-388); Glucose 106 mg/dL (74-106); Iron 139 ug/dL (65-175); Iron Binding Capacity,Total 300 ug/dL (250-450); Potassium 5.1 mmol/L (3.5-5.1); Sodium Level 142 mmol/L (136-145)
== END | disposition home or self-care (01) ==
LOC: LAB.FUTURE 12:59
PROVIDERS: Family Provider Family Medicine; PCP Family Medicine; Referring Provider Internal Medicine Nephrology; Visit Provider Internal Medicine Nephrology
DX: N17.9 Acute kidney failure, unspecified (principal); N18.3 Chronic kidney disease, stage 3 (moderate); D63.1 Anemia in chronic kidney disease
CPT/HCPCS: 36415; 80069; 82728; 83540; 83550; 85027

== ENCOUNTER 2018-09-07 11:43 | Inpatient (IN) | payer MEDICARE, SELFPAY ==
[2018-08-21 13:11] VITALS: BMI 27.1
[2018-09-07] VITALS (10 sets, daily range): BP systolic 86–103; BP diastolic 44–55; PULSE 70–77; RESP 14–20; TEMP 36.2–37.2; O2SAT 96–99; BMI 28.6; BMI 26.4
[2018-09-07 12:08] LABS: Absolute Lymphocyte Count 2.02 X10^3/ul (0.83-4.51); Absolute Neutrophil Count 16.3 X10^3/uL (2.0-7.7); Basophil# 0.02 X10^3/uL; Basophil% 0.1 % (0-1); Eosinophil# 0.81 X10^3/uL; Hematocrit 40.7 % (40-54); Hemoglobin 13.2 g/dl (13.0-16.5); Lymphocyte # 2.02 X10^3/ul (4.0); Mean Corp Hgb Conc 32.4 g/gl (32-36); Mean Corpuscular Hgb 29.1 pg (27.0-32.0); Mean Corpuscular Volume 89.8 fL (80-94); Mean Platelet Vol. 11.8 fl (6.2-12.0); Monocyte# 1.06 X10^3/uL; Monocyte% 5.2 % (0-10); Neutrophil # 16.25 X10^3/uL (2.7-7.7); Neutrophil % 80.1 % (47-70); POSITIVE COUNT NO; POSITIVE DIFFERENTIAL NO; POSITIVE MORPHOLOGY NO; Platelet Count 520 K/mm3 (150-450); RBC Distribution Width SD 51.7 fl (35.1-43.9); Red Blood Count 4.53 M/mm3 (4.6-6.2); White Blood Count 20.3 K/mm3 (4.4-11.0)
[2018-09-07 12:23] LABS: Anion Gap 12 (5-15); BUN 93 mg/dL (7-18); BUN/Creat Ratio 16.6 RATIO (10-20); Calcium,Total 9.8 mg/dL (8.5-10.1); Chloride 105 mmol/L (98-107); Creatinine, Serum 5.61 mg/dL (0.70-1.30); EST Glomerular Filtration Rate 11 mL/min (>60); Est Glom Filt Rate - Afr Amer 13 mL/min (>60); Estimated Creatinine Clearance 15.23 ml/min; Glucose 258 mg/dL (74-106); Potassium 7.1 mmol/L (3.5-5.1); Sodium Level 130 mmol/L (136-145)
--- NOTE | 2018-09-07 13:03 | EKG12_ITS ---
Test Reason : DEHYDRATION Blood Pressure : / mmHG Vent. Rate : 065 BPM Atrial Rate : 065 BPM P-R Int : 272 ms QRS Dur : 114 ms QT Int : 380 ms P-R-T Axes : 040 071 057 degrees QTc Int : 395 ms Sinus rhythm with 1st degree A-V block Low Voltage QRS (Limb Leads) Confirmed by LAYO ASIF, THU ([id number]), publication editor FABIAN SALAZAR ([id number]) on 09/09/2018 7:45:29 AM Referred By: CONNER Confirmed By:THU VASQUES MD
[2018-09-07] MEDS: 0.9% Normal Saline 1,000 ML 1000 ML IV (13:58)
[2018-09-07] MEDS: Dextrose 50%-Water 25 GM/50 ML DISP.SYRIN IV (14:02)
[2018-09-07] MEDS: Sodium Polystyrene Sulfonate 15 GM/60 ML UDC PO ×2 (14:03→21:32)
[2018-09-07 15:04] LABS: Lactic Acid 1.5 mmol/L (0.4-2.0)
[2018-09-07] MEDS: 0.9% Normal Saline 1,000 ML 150 ML IV (15:18)
--- NOTE | 2018-09-07 15:26 | ED.DCSUM_ITS ---
- ER Visit Summary Date of Service: 09/07/18 Chief Complaint: Nausea and diarrhea History of Present Illness: The patient is a 62 M with nausea, vomiting, diarrhea for the past 3 days. He states he feels generally weak. He denies fever or abdominal pain. His last episode of vomiting and diarrhea was over night. Patient is concerned about dehydration and high potassium which has had problems within the past. He does have a history of chronic renal failure but is not currently on dialysis. He follows with Dr. Magana. Physical Examination: Blood pressure is 86/50, temperature 97.2, heart rate 76, respiratory rate 17, pulse ox 97% on room air. Patient sitting upright in bed no acute distress. Head neck examination reveals dry mucous membranes. Heart is regular rate and rhythm. Lung sounds are clear. Abdomen is soft nontender. Patient is alert and oriented with no focal deficits. Test Results: EKG is sinus at 65 with first-degree AV block. No acute ischemia. T waves are slightly prominent. CBC was a white count of 20.3 with 80% neutrophils. Platelet count is 520,000. Chemistry studies are significant for potassium of 7.1 and a bicarb of 13. Sodium is 130 and glucose is 258. BUN is 93 and creatinine is 5.61. It appears patient's baseline creatinine is in the mid to the low 3 range. Lactate is 1.5. Emergency Department Course and Treatment: Patient received IV fluids along with albuterol, insulin, D50 W, Kayexalate. He is received 2 L of IV fluid. Systolic blood pressure is now in the high 90s to low 100s. At his last doctor's visit his systolic blood pressure was 102. Repeat potassium at this time is 6.2. Patient be admitted for further hydration and treatment. Treatment Plan: [] Disposition: Admit Impression: 1. Dehydration 2. Acute on chronic renal failure 3. Hyperkalemia 4. Hypotension This note was generated with [employer] dictation software. It may contain incorrect words, spelling, and punctuation that were not noted in review of the chart prior to signing ED Disposition - Plan for ED Patient: Referrals: Caesar Chavez DO [Primary Care Provider] -
[2018-09-07] MEDS: 0.9% Normal Saline 1,000 ML 999 ML IV (15:30)
[2018-09-07 16:17] LABS: Potassium 6.2 mmol/L (3.5-5.1)
--- NOTE | 2018-09-07 17:19 | HP.PCM_ITS ---
Problem List (1) NICK (acute kidney injury) Status: Acute (2) Hyperkalemia Status: Acute History of Present Illness Date of Admission: 09/07/18 Chief Complaint: nausea, vomiting, diarrhea The patient is a 62 year old M who was in his normal state of health over the past couple days where he has been having intractable vomiting but more so diarrhea. Patient is unable to drink or eat anything. Has felt this way before where his potassium gets elevated though he does not have any symptoms pertaining directly to his hyperkalemia but present to the emergency room and was found to have a potassium of 7.1. He received a battery of medications to help with hyperkalemia, including, albuterol, dextrose and IV insulin as well as IV fluids. He did receive 15 g of Kayexalate. Patient was also noted to have acute kidney injury with a creatinine of 5.6, baseline is around 2.74 from August 12. Currently, he is feeling better at this time. [] Past Medical History Past Medical History (Chronic Problems): Chronic Problems (Last Reviewed 08/01/18 @ 13:11 by Jose J Tucker DO) Acute renal failure superimposed on stage 3 chronic kidney disease (Chronic) S/P PTCA (percutaneous transluminal coronary angioplasty) (Chronic) HLD (hyperlipidemia) (Chronic) Clostridium difficile colitis (Chronic) Chronic hypoxemic respiratory failure (Chronic) 2-3 LPM chronically Colon cancer (Chronic) had surgery with no chemo or radiation at [facility] fall Status post colon resection (Chronic) subtotal for colon CA in the fall at [facility] Hemorrhoids (Chronic) CKD (chronic kidney disease) stage 4, GFR 15-29 ml/min (Chronic) Nicotine dependence, cigarettes, in remission (Chronic) Stage 3 severe COPD by GOLD classification (Chronic) FEV1 37% predicted Heme + stool (Chronic) Anemia of chronic renal failure (Chronic) H/O pneumonectomy (Chronic) Right LL lobectomy due to benign tumor Peripheral vascular disease (Chronic) Radiculopathy affecting upper extremity (Chronic) Iron deficiency anemia (Chronic) Increased PTH level (Chronic) secondary to CRF stage4 Low vitamin D level (Chronic) Paroxysmal atrial fibrillation (Chronic) Nocturnal hypoxia (Chronic) Noncompliance with CPAP treatment (Chronic) LADARIUS (obstructive sleep apnea) (Chronic) Gout (Chronic) History of tobacco abuse (Chronic) quit in April 2017 Hx of CABG (Chronic) 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 Coronary artery disease (Chronic) has had 3 stents.....the last stent he thinks in 2008 Hypertension (Chronic) Diabetes mellitus type 2 in obese (Chronic) Medical History: Medical History (Last Reviewed 09/07/18 @ 17:22 by Jose J Tucker DO) Nicotine dependence, cigarettes, in remission (Chronic) F17.211 Heme + stool (Chronic) R19.5 Acute renal failure superimposed on stage 4 chronic kidney disease (Acute) N17.9, N18.4 Radiculopathy affecting upper extremity (Chronic) M54.10 Iron deficiency anemia (Chronic) D50.9 Increased PTH level (Chronic) E34.9 secondary to CRF stage4 Metabolic acidosis (Acute) E87.2 Low vitamin D level (Chronic) E55.9 Paroxysmal atrial fibrillation (Chronic) I48.0 Nocturnal hypoxia (Chronic) G47.34 Noncompliance with CPAP treatment (Chronic) Z91.14 LADARIUS (obstructive sleep apnea) (Chronic) G47.33 Gout (Chronic) M10.9 History of tobacco abuse (Chronic) Z87.891 quit in April 2017 Coronary artery disease (Chronic) I25.10 has had 3 stents.....the last stent he thinks in 2008 Hypertension (Chronic) I10 Diabetes mellitus type 2 in obese (Chronic) E11.69, E66.9 Colon cancer C18.9 Acute exacerbation of chronic obstructive pulmonary disease (COPD) (Resolved) J44.1 Acute respiratory failure with hypoxemia (Resolved) J96.01 Influenza B (Resolved) J10.1 Lower GI bleed (Resolved) K92.2 Severe sepsis (Resolved) A41.9, R65.20 Streptococcal pneumonia (Resolved) J15.4 Urinary retention due to benign prostatic hyperplasia (Resolved) N40.1, R33.8 NSAID long-term use (Inactive) Z79.1 Non-STEMI (non-ST elevated myocardial infarction) (Inactive) I21.4 Allergies No Known Allergies Allergy (Verified 09/07/18 11:43) Home Medications: Ambulatory Orders Medication Instructions Recorded Nitroglycerin (INPATIENT USE) 0.4 mg SUBLINGUAL Q5M PRN 05/14/17 [Nitrostat] Oxycodone [Oxyir] 5 mg PO BID PRN PRN 05/14/17 Albuterol Aerosols [Ventolin 2.5 mg INHALATION Q4H PRN PRN 09/15/17 Aerosols] Allopurinol [Zyloprim] 300 mg PO DAILY 09/15/17 Cilostazol 100 mg PO DAILY 09/15/17 Colchicine 0.6 mg PO TID PRN PRN 09/15/17 Ergocalciferol [Vitamin D] 50,000 unit PO UD 09/15/17 Finasteride [Proscar] 5 mg PO DAILY 09/15/17 Isosorbide Mononitrate [Imdur] 30 mg PO DAILY 09/15/17 Metoprolol(XL)Succ [Toprol Xl 50 mg PO DAILY 09/15/17 (Beta Vanesa)] Pantoprazole Sodium [Protonix] 40 mg PO DAILY 09/15/17 hydrALAZINE [Apresoline] 12.5 mg PO BID 09/15/17 Albuterol Inhaler [Ventolin Hfa] 1 - 2 puff INHALATION Q4H PRN PRN 05/12/18 Diazepam [Valium] 5 mg PO DAILY PRN PRN 05/12/18 Insulin Aspart [Novolog Flexpen] 5 units SUBCUT TIDCM #0 05/16/18 Sodium Bicarbonate 650 mg PO TID #90 tab 06/03/18 Clopidogrel Bisulfate [Clopidogrel] 75 mg PO DAILY 08/04/18 Ferrous Sulfate 325 mg PO TID 08/04/18 Insulin Degludec [Tresiba 30 - 60 unit SQ BID 08/04/18 Flextouch U-200] Amiodarone HCl [Cordarone] 200 mg PO BID #60 tab 08/05/18 Amlodipine [Norvasc] 10 mg PO DAILY 09/07/18 Aspirin E.C. [Ecotrin] 81 mg PO DAILY@0800 09/07/18 Simvastatin 80 mg PO QHS 09/07/18 Surgical History: Surgical History (Last Reviewed 09/07/18 @ 17:22 by Jose J Tucker DO) Hx of CABG (Chronic) Z95.1 x3 2003 H/O colectomy Z90.49 3/4 of colon, 12/2017, Dr. Alvarado with [facility] S/P removal of lung Z90.2 3/4 of right lung was removed by Dr. Todd in [facility] 11/2009 Surgical History: angioplasty - stent x2 2003, - - rt lung thoracotomy, lobectomy 2009 for benign tumor Psychiatric History: No pertinent psych hx Smoking Status: Former smoker - *Family History Maternal Family History: Family History (Last Reviewed 09/07/18 @ 17:22 by Jose J Tucker DO) Father Leukemia Mother COPD (chronic obstructive pulmonary disease) History Items: COPD Paternal Family History: Family History (Last Reviewed 09/07/18 @ 17:22 by Jose J Tucker DO) Father Leukemia Mother COPD (chronic obstructive pulmonary disease) History Items: Cancer - leukemia, Hypertension Review of Systems Constitutional: Reports: Anorexia. Denies: Chills, Fever, Night Sweats Eyes: Denies: Blurred vision, Double vision HEENT: Reports: - - Rhinorrhea. Denies: Head Aches, Sinus Congestion, Sinus Drainage Cardiovascular: Denies: Chest Pain, Palpitations Respiratory: Denies: Cough, Shortness of breath at rest, Sputum production Gastrointestinal: Reports: Abdominal Pain, Diarrhea, Nausea, Vomiting Genitourinary: Reports: - - Decrease urinary output since he has been having vomiting and diarrhea. Denies: Dysuria Musculoskeletal: Denies: Joint Pain, Joint Tenderness Skin: Denies: Rash, Wounds Neurological: Denies: Numbness, Tingling, Focal weakness Psychiatric: Denies: Anxiety, Depression Endocrine: Denies: Change in Body Habitus, Heat/ Cold Intolerance Hematologic/ Lymphatic: Denies: Easy Bruising, Easy Bleeding Comment: A 10 point review of systems were negative except as mentioned in the history of present illness and the other review of systems. VTE Information - Inpt Only VTE Present on Admission: No VTE Mechan Device Prophylaxis: None VTE Pharm Prophylaxis ordered?: Yes Patient Problems: Active and Suspected Problems (Last Reviewed 08/01/18 @ 13:11 by Jose J Tucker DO) NICK (acute kidney injury) (Acute) Hyperkalemia (Acute) - Physical Exam General: Alert, No apparent distress HEENT: Atraumatic, Normocephalic, - - Dentures in place. Oral: Dry Mucosa Neck: Supple, No Nodes Lungs: Clear to auscultation, Normal air movement, No rhonchi, No wheeze Cardiovascular: Regular rate, Regular Rhythm, Normal S1, Normal S2, No murmurs Abdomen: Bowel Sounds Present, Soft, Non Tender, Non-Distended, No Hepato- splenomegaly Extremities: No edema, No Calf Tenderness Skin: No rashes, No breakdown Musculoskeletal: No Tenderness to Palpation of Joints or Extremities, No Muscle Wasting Neurological: Deep Tendon Reflexes 2+/4 and Symmetrical, - - No clonus Psych/Mental Status: Normal Affect, Appropriate Vital Signs Temp Pulse Resp BP Pulse Ox 36.2 C L 73 15 101/55 L 99 09/07/18 11:44 09/07/18 17:05 09/07/18 17:05 09/07/18 17:05 09/07/18 17:05 Oxygen Delivery Method Room Air Weight: 98.43 kg Body Mass Index (BMI) 28.6 Laboratory Tests Past 24 Hrs 09/07/18 09/07/18 09/07/18 11:50 11:50 11:50 WBC 20.3 H RBC 4.53 L Hgb 13.2 Hct 40.7 MCV 89.8 MCH 29.1 MCHC 32.4 RDW 16.0 H RDW Differential 51.7 H Plt Count 520 H MPV 11.8 Immature Gran % (Auto) 0.600 Neut % (Auto) 80.1 H Lymph % (Auto) 10.0 L [place] % (Auto) 5.2 Eos % (Auto) 4.0 Baso % (Auto) 0.1 Absolute Neuts (auto) 16.3 H Absolute Lymphs (auto) 2.02 Total Counted Not Reportable Sodium 130 L Potassium 7.1 H* Chloride 105 Carbon Dioxide 13.0 L Anion Gap 12 BUN 93 H Creatinine 5.61 H Estim Creat Clear Calc 15.23 Est GFR (MDRD) Af Amer 13 L Est GFR (MDRD) Non-Af 11 L BUN/Creatinine Ratio 16.6 Glucose 258 H Lactic Acid 1.5 Calcium 9.8 09/07/18 15:08 WBC RBC Hgb Hct MCV MCH MCHC RDW RDW Differential Plt Count MPV Immature Gran % (Auto) Neut % (Auto) Lymph % (Auto) [place] % (Auto) Eos % (Auto) Baso % (Auto) Absolute Neuts (auto) Absolute Lymphs (auto) Total Counted Sodium Potassium 6.2 H* Chloride Carbon Dioxide Anion Gap BUN Creatinine Estim Creat Clear Calc Est GFR (MDRD) Af Amer Est GFR (MDRD) Non-Af BUN/Creatinine Ratio Glucose Lactic Acid Calcium EKG reviewed and showed normal sinus rhythm with no acute changes. Assessment/Plan All Active Problems (Last Reviewed 08/01/18 @ 13:11 by Jose J Tucker DO) Hypotension, unspecified (Acute) Severe sepsis (Acute) Pseudomembranous enterocolitis (Acute) Hyperkalemia, diminished renal excretion (Acute) Cholelithiasis (Acute) Infectious encephalopathy (Acute) Uremia of renal origin (Acute) Hyperglycemia due to type 2 diabetes mellitus (Acute) Septic shock (Acute) NICK (acute kidney injury) (Acute) C. difficile colitis (Acute) Hyperkalemia (Acute) Metabolic acidosis (Acute) Hyponatremia (Acute) NSTEMI (non-ST elevated myocardial infarction) (Acute) NICK (acute kidney injury) (Acute) Hyperkalemia (Acute) Gastroenteritis (Acute) NICK (acute kidney injury) (Acute) Hyperkalemia (Acute) Acute renal failure superimposed on stage 4 chronic kidney disease (Acute) Metabolic acidosis (Acute) Acute exacerbation of chronic obstructive pulmonary disease (COPD) (Resolved) Acute respiratory failure with hypoxemia (Resolved) Benign neoplasm of right lung (Resolved) Influenza B (Resolved) Lower GI bleed (Resolved) Severe sepsis (Resolved) Streptococcal pneumonia (Resolved) Urinary retention due to benign prostatic hyperplasia (Resolved) 1. Hyperkalemia * Secondary to acute kidney injury * Improved after Kayexalate, insulin and dextrose, albuterol. * Recheck this evening and in the morning * Continue IV fluids 2. Acute kidney injury * Creatinine 5.6 * Baseline 2.74 from August 12 * Likely prerenal * IV fluids 3. Possible gastroenteritis * Improved at this time * Will resume normal diet * Other possibilities could be gastroparesis and may consider gastric emptying study be done as outpatient 4. C. difficile colitis * I doubt his symptoms are related with C. difficile at this time * I advised the patient's about further risks of antibiotics and that most upper respiratory infections tend to be viral and antibiotics will have no effect b ut make him further risk for C. difficile colitis. * Patient states that he is given antibiotics to take if he starts feeling run down. I am not sure if this is truly the case but I have advised patient to emphasize more caution particular if it is more upper respiratory type symptoms. 5. Diabetes mellitus type 2 * Continue with his home medications and sliding scale insulin. 6. VTE prophylaxis: Subcu heparin 7. Advanced care planning: Discussed CPR, intubation and PEG tube with the patient. He wishes to be full CODE STATUS and have a PEG tube placed if necessary. Code Visit Inpatient E&M: 07483 Init Hosp L3
[2018-09-07 18:25] LABS: Bedside Glucose 157 mg/dL (70-110)
[2018-09-07] MEDS: Insulin Lispro 100 UNIT/ML INSULN.PEN SC (18:38)
[2018-09-07] MEDS: Insulin Lispro 100 UNIT/ML INSULN.PEN SQ (18:38)
[2018-09-07] MEDS: Albuterol 2.5 MG/3 ML VIAL.NEB. INHALATION (19:25)
[2018-09-07 19:54] LABS: Anion Gap 10 (5-15); BUN 90 mg/dL (7-18); BUN/Creat Ratio 17.2 RATIO (10-20); Calcium,Total 8.7 mg/dL (8.5-10.1); Chloride 112 mmol/L (98-107); Creatinine, Serum 5.22 mg/dL (0.70-1.30); EST Glomerular Filtration Rate 12 mL/min (>60); Est Glom Filt Rate - Afr Amer 14 mL/min (>60); Estimated Creatinine Clearance 16.37 ml/min; Glucose 174 mg/dL (74-106); Potassium 6.5 mmol/L (3.5-5.1); Sodium Level 134 mmol/L (136-145)
[2018-09-07] MEDS: Amiodarone 200 MG Tablet PO (21:15)
[2018-09-07] MEDS: Heparin Injection (Vial) 5,000 UNIT/ML VIAL 5000 UNIT SC (21:16)
[2018-09-07] MEDS: Sodium Bicarbonate 650 MG Tablet PO (21:17)
[2018-09-07 23:00] LABS: Bedside Glucose 179 mg/dL (70-110)
[2018-09-07] MEDS: diazePAM 5 MG Tablet PO (23:26)
[2018-09-08] VITALS (17 sets, daily range): BP systolic 93–130; BP diastolic 45–69; PULSE 76–100; RESP 16–18; TEMP 36.4–36.7; O2SAT 96–100
[2018-09-08] MEDS: 0.9% Normal Saline 1,000 ML 150 ML IV ×4 (01:27→22:00)
[2018-09-08 02:49] LABS: Anion Gap 8 (5-15); BUN 88 mg/dL (7-18); BUN/Creat Ratio 17.4 RATIO (10-20); Calcium,Total 8.3 mg/dL (8.5-10.1); Chloride 115 mmol/L (98-107); Creatinine, Serum 5.05 mg/dL (0.70-1.30); EST Glomerular Filtration Rate 12 mL/min (>60); Est Glom Filt Rate - Afr Amer 15 mL/min (>60); Estimated Creatinine Clearance 16.92 ml/min; Glucose 157 mg/dL (74-106); Potassium 6.3 mmol/L (3.5-5.1); Sodium Level 136 mmol/L (136-145)
[2018-09-08] MEDS: Heparin Injection (Vial) 5,000 UNIT/ML VIAL 5000 UNIT SC ×3 (06:09→22:02)
[2018-09-08] MEDS: Sodium Bicarbonate 650 MG Tablet PO (06:09)
[2018-09-08 06:45] LABS: Bedside Glucose 135 mg/dL (70-110)
[2018-09-08] MEDS: Albuterol 2.5 MG/3 ML VIAL.NEB. INHALATION ×4 (07:42→20:45)
[2018-09-08 07:48] LABS: Anion Gap 11 (5-15); BUN 85 mg/dL (7-18); BUN/Creat Ratio 17.5 RATIO (10-20); Calcium,Total 8.4 mg/dL (8.5-10.1); Chloride 116 mmol/L (98-107); Creatinine, Serum 4.86 mg/dL (0.70-1.30); EST Glomerular Filtration Rate 13 mL/min (>60); Est Glom Filt Rate - Afr Amer 16 mL/min (>60); Estimated Creatinine Clearance 17.58 ml/min; Glucose 136 mg/dL (74-106); Potassium 6.4 mmol/L (3.5-5.1); Sodium Level 134 mmol/L (136-145)
[2018-09-08] MEDS: Cilostazol 50 MG Tablet 100 MG PO (09:10)
[2018-09-08] MEDS: Aspirin E.C. 81 MG Tablet PO (09:10)
[2018-09-08] MEDS: Finasteride 5 MG Tablet PO (09:10)
[2018-09-08] MEDS: Amiodarone 200 MG Tablet PO ×2 (09:11→22:03)
[2018-09-08] MEDS: Clopidogrel Bisulfate 75 MG Tablet PO (09:11)
[2018-09-08] MEDS: Pantoprazole Sodium 40 MG Tablet PO (09:11)
[2018-09-08] MEDS: Insulin Lispro 100 UNIT/ML INSULN.PEN SC ×3 (09:16→19:05)
--- NOTE | 2018-09-08 10:29 | CASEMGMT ---
DEVEN SAAVEDRA assessment: Face to Face with patient for initial transition planning/care coordination assessment. DEVEN SAAVEDRA introduced self and role at [facility], pt voices understanding and consents to assessment at this time. Pt is lying in bed in no distress at this time. Pt is A/Ox4 at this time and answers all questions appropriately at this time. Care providers, pharmacy, and demographics verified at this time. Pt was admitted 08/01-08/05/18 for septic shock and was on the vent for 2 days. Pt declined HHC/OP therapy at discharge. PCP: Kathy Specialists: kathy Barlow; leelee Magana Preferred [facility]acy: [facility] Insurance: MCR A/B Prescription Benefit: MCR D Living Will/HPOA: Pt states has LW/HPOA and is aware that they are not on file at [facility] at this time. Pt states that his , Eva Romero, is HPOA. LNOK: Eva Romero, ; Vita Evans, sister Living Arrangements: Pt states that he lives with in [facility] home and states no concerns at home at this time. Pt states is independent with ADL's. Transportation: Pt states drives self and states no transportation concerns at this time. DME/HHC: Pt has the following DME: cane, walker, grab bars, shower chair, and states uses oxygen prn and states that he buys/fills tanks through [employer] when needed. Pt states has had oxygen set up thru [employer] in the past. Pt states no hx of HHC or SNF in the past. Pt states no concerns with going home at time of discharge. Pt states is disabled. Pt states does not smoke or drink ETOH. Pt states no further questions/concerns/needs at this time. CM to follow PT/OT and for any further discharge planning/needs. Advised pt to ask for CM if any further questions/concerns/needs at this time, voices understanding. Pt Goal: [place] DEVEN SAA[place]EDRA
[2018-09-08 11:11] LABS: Bedside Glucose 210 mg/dL (70-110)
[2018-09-08 12:01] LABS: Albumin, Serum 2.7 g/dL (3.2-5.0); Phosphorus 6.9 mg/dL (2.5-4.9)
[2018-09-08] MEDS: Insulin Lispro 100 UNIT/ML INSULN.PEN SQ ×2 (12:47→19:06)
[2018-09-08 14:54] LABS: BUN 86 mg/dL (7-18); Calcium,Total 8.6 mg/dL (8.5-10.1); Chloride 114 mmol/L (98-107); Creatinine, Serum 4.78 mg/dL (0.70-1.30); EST Glomerular Filtration Rate 13 mL/min (>60); Est Glom Filt Rate - Afr Amer 16 mL/min (>60); Estimated Creatinine Clearance 17.88 ml/min; Glucose 160 mg/dL (74-106); Phosphorus 5.3 mg/dL (2.5-4.9); Potassium 6.2 mmol/L (3.5-5.1); Sodium Level 139 mmol/L (136-145)
[2018-09-08] MEDS: Sodium Polystyrene Sulfonate 15 GM/60 ML UDC PO (17:01)
[2018-09-08 17:10] LABS: Bedside Glucose 200 mg/dL (70-110)
--- NOTE | 2018-09-08 17:13 | PCM.CONS.R ---
Consultation - Renal 09/08/18 PCP/ Referring MD: Requesting physician: [] Primary care physician: Caesar Chavez Reason for Consultation:: NICK on CKD, hyperkalemia - History of Present Illness History of Present Illness: The patient is a 62 year old M well-known to me with CKD stage III with diabetes and hypertension heart disease presents with watery diarrhea for the past 2 to 3 days since Friday with associated nausea, vomiting. He tried to control his frequent bowel movements with Imodium without success. He complained of weakness with poor appetite. He also noticed a fever at home with temperature of 102 prior to admission. He denies hematochezia, melena. Creatinine was elevated at 4.8 with baseline creatinine of mid 2s on 08/12. He is frequently hospitalized for acute renal failure, hyperkalemia due to C. difficile colitis. He was last discharged on August 05. Upon current admission his potassium was elevated at 7.1 with severe metabolic acidosis bicarb of 7 from GI loss. He was given kayexalate for hyperkalemia and was started on IV bicarbonate solution. He has been taking his sodium bicarbonate tablets at home prior to admission. He denies taking his losartan or lisinopril at home. His urinary output had declined with his watery stools. He denied any hematochezia or melena. His urinary output improved since admission with IV fluid hydration. - Allergies Allergies: Allergies No Known Allergies Allergy (Verified 09/07/18 11:43) - Current Medications Current Medications: Current Medications Acetaminophen (Tylenol) 650 mg PO Q6H PRN PRN PRN Reason: Mild pain 1-3/Temp > 100.7 F Albuterol Sulfate (Ventolin Aerosols) 2.5 mg INHALATION Q4HWA.RT [facility] Last Admin: 09/08/18 15:23 Dose: 2.5 mg Documented by: Amiodarone HCl (Cordarone) 200 mg PO BID [facility] Last Admin: 09/08/18 09:11 Dose: 200 mg Documented by: Aspirin (Ecotrin) 81 mg PO DAILY@0800 [facility] Last Admin: 09/08/18 09:10 Dose: 81 mg Documented by: Cilostazol (Pletal) 100 mg PO DAILY [facility] Last Admin: 09/08/18 09:10 Dose: 100 mg Documented by: Clopidogrel Bisulfate (Plavix) 75 mg PO DAILY [facility] Last Admin: 09/08/18 09:11 Dose: 75 mg Documented by: Dextrose (D50w Syringe) 0 gm IV X1 PRN; Protocol PRN Reason: Hypoglycemia Finasteride (Proscar) 5 mg PO DAILY [facility] Last Admin: 09/08/18 09:10 Dose: 5 mg Documented by: Glucagon () 1 mg IM .X1 PRN PRN Reason: Hypoglycemia Heparin Sodium (Porcine) (Heparin Na) 5,000 unit SC Q8 [facility] Last Admin: 09/08/18 13:48 Dose: 5,000 unit Documented by: Sodium Chloride () 1,000 mls @ 150 mls/hr IV .Q6H40M [facility] Last Admin: 09/08/18 13:46 Dose: 150 mls/hr Documented by: Sodium Bicarbonate 100 meq/ (Dextrose) 1,100 mls @ 100 mls/hr IV .Q11H [facility] Last Admin: 09/08/18 12:43 Dose: 100 mls/hr Documented by: Insulin Glargine (Lantus (Bkc)) 30 units SC BID [facility] Last Admin: 09/08/18 09:16 Dose: 30 units Documented by: Insulin Human Lispro (Humalog Kwikpen (Bkc)) 5 unit SC TIDCM [facility] Last Admin: 09/08/18 12:47 Dose: 5 u Documented by: Insulin Human Lispro (Humalog Kwikpen (Bkc)) 0 unit SQ TIDAC [facility]; Protocol Last Admin: 09/08/18 12:47 Dose: 2 u Documented by: Metoprolol Succinate (Toprol Xl (Beta Vanesa)) 50 mg PO DAILY [facility] Last Admin: 09/08/18 12:42 Dose: Not Given Documented by: Nitroglycerin (Nitrostat) 0.4 mg SUBLINGUAL Q5M PRN PRN Reason: Chest Pain Ondansetron HCl (Zofran) 4 mg IV Q8H PRN PRN PRN Reason: NAUSEA/VOMITING Oxycodone HCl (Oxyir) 5 mg PO BID PRN PRN PRN Reason: PAIN Pantoprazole Sodium (Protonix) 40 mg PO DAILY [facility] Last Admin: 09/08/18 09:11 Dose: 40 mg Documented by: Sodium Chloride () 5 - 15 ml IV UD PRN PRN Reason: SALINE FLUSH - Past Medical History Past Medical History (Chronic Problems): Chronic Problems (Last Reviewed 09/07/18 @ 17:22 by Jose J Tucker DO) Acute renal failure superimposed on stage 3 chronic kidney disease (Chronic) S/P PTCA (percutaneous transluminal coronary angioplasty) (Chronic) HLD (hyperlipidemia) (Chronic) Clostridium difficile colitis (Chronic) Chronic hypoxemic respiratory failure (Chronic) 2-3 LPM chronically Colon cancer (Chronic) had surgery with no chemo or radiation at [facility] fall Status post colon resection (Chronic) subtotal for colon CA in the fall at [facility] Hemorrhoids (Chronic) CKD (chronic kidney disease) stage 4, GFR 15-29 ml/min (Chronic) Nicotine dependence, cigarettes, in remission (Chronic) Stage 3 severe COPD by GOLD classification (Chronic) FEV1 37% predicted Heme + stool (Chronic) Anemia of chronic renal failure (Chronic) H/O pneumonectomy (Chronic) Right LL lobectomy due to benign tumor Peripheral vascular disease (Chronic) Radiculopathy affecting upper extremity (Chronic) Iron deficiency anemia (Chronic) Increased PTH level (Chronic) secondary to CRF stage4 Low vitamin D level (Chronic) Paroxysmal atrial fibrillation (Chronic) Nocturnal hypoxia (Chronic) Noncompliance with CPAP treatment (Chronic) LADARIUS (obstructive sleep apnea) (Chronic) Gout (Chronic) History of tobacco abuse (Chronic) quit in April 2017 Hx of CABG (Chronic) x3 2003 Coronary artery disease (Chronic) has had 3 stents.....the last stent he thinks in 2008 Hypertension (Chronic) Diabetes mellitus type 2 in obese (Chronic) - Past Surgical History Surgical History: angioplasty - stent x2 2003, - - rt lung thoracotomy, lobectomy 2009 for benign tumor - Social History Smoking Status: Former smoker - Family History Maternal Family History: Family History (Last Reviewed 09/07/18 @ 17:22 by Jose J Tucker DO) Father Leukemia Mother COPD (chronic obstructive pulmonary disease) History Items: COPD Paternal Family History: Family History (Last Reviewed 09/07/18 @ 17:22 by Jose J Tucker DO) Father Leukemia Mother COPD (chronic obstructive pulmonary disease) History Items: Cancer - leukemia, Hypertension Review of Systems Constitutional: Reports: Anorexia, Chills, Fever, Malaise, Weakness Cardiovascular: Denies: Chest Pain, Syncope Respiratory: Reports: Shortness of Breath Gastrointestinal: Reports: Abdominal Pain, Diarrhea - Watery, Nausea, Vomiting. Denies: Hematochezia, Melena Genitourinary: Reports: - - Low urine output the past 2 days. Denies: Dysuria Skin: Denies: Rash Neurological: Denies: Confusion, Tremor Psychiatric: Denies: Anxiety, Depression Hematologic/ Lymphatic: Reports: Anemia Patient Problems: Active and Suspected Problems (Last Reviewed 09/07/18 @ 17:22 by oJse J Tucker DO) NICK (acute kidney injury) (Acute) Hyperkalemia (Acute) - Physical Exam General: Alert, Oriented x3, Cooperative, No apparent distress, Well developed, Well nourished HEENT: PERRLA, EOMI Neck: Supple Lungs: Clear to auscultation Cardiovascular: Regular rate, No rub noted Abdomen: Bowel Sounds Present, Soft, Non Tender, Distended - Mild Extremities: No edema Musculoskeletal: No Muscle Wasting Neurological: Cranial nerves II-XII grossly intact, - - No tremor Psych/Mental Status: Normal Affect, Appropriate, Alert and oriented to time, place, person, mood and affect Vital Signs Temp Pulse Resp BP Pulse Ox 97.9 F 88 18 119/55 L 97 09/08/18 16:40 09/08/18 16:40 09/08/18 16:40 09/08/18 16:40 09/08/18 16:40 Oxygen Delivery Method Room Air Weight: 90.718 kg Body Mass Index (BMI) 26.4 Intake and Output for Last 24 Hours 09/06/18 09/07/18 09/08/18 23:59 23:59 23:59 Intake Total 869 / 869 3483 / 3483 Output Total 2250 / 2250 Balance 869 / 869 1233 / 1233 Laboratory Tests Past 24 Hrs 09/07/18 09/08/18 09/08/18 19:00 02:17 02:17 Sodium 134 L 136 Cancelled Potassium 6.5 H* 6.3 H* Cancelled Chloride 112 H 115 H Cancelled Carbon Dioxide 12.0 L 13.0 L Cancelled Anion Gap 10 8 BUN 90 H 88 H Cancelled Creatinine 5.22 H 5.05 H Cancelled Estim Creat Clear Calc 16.37 16.92 Est GFR (MDRD) Af Amer 14 L 15 L Cancelled Est GFR (MDRD) Non-Af 12 L 12 L Cancelled BUN/Creatinine Ratio 17.2 17.4 Cancelled Glucose 174 H 157 H Cancelled Calcium 8.7 8.3 L Cancelled Phosphorus 6.9 H Albumin 2.7 L 09/08/18 09/08/18 06:40 14:15 Sodium 134 L 139 Potassium 6.4 H* 6.2 H* Chloride 116 H 114 H Carbon Dioxide 7.0 L* 13.0 L Anion Gap 11 BUN 85 H 86 H Creatinine 4.86 H 4.78 H Estim Creat Clear Calc 17.58 17.88 Est GFR (MDRD) Af Amer 16 L 16 L Est GFR (MDRD) Non-Af 13 L 13 L BUN/Creatinine Ratio 17.5 18.0 Glucose 136 H 160 H Calcium 8.4 L 8.6 Phosphorus 5.3 H Albumin 3.0 L POC Glucose 09/08/18 09/08/18 09/08/18 16:58 10:59 06:06 POC Glucose 200 H 210 H 135 H 09/07/18 09/07/18 21:13 18:20 POC Glucose 179 H 157 H Assessment/Plan All Active Problems (Last Reviewed 09/07/18 @ 17:22 by Jose J Tucker DO) Hypotension, unspecified (Acute) Severe sepsis (Acute) Pseudomembranous enterocolitis (Acute) Hyperkalemia, diminished renal excretion (Acute) Cholelithiasis (Acute) Infectious encephalopathy (Acute) Uremia of renal origin (Acute) Hyperglycemia due to type 2 diabetes mellitus (Acute) Septic shock (Acute) NICK (acute kidney injury) (Acute) C. difficile colitis (Acute) Hyperkalemia (Acute) Metabolic acidosis (Acute) Hyponatremia (Acute) NSTEMI (non-ST elevated myocardial infarction) (Acute) NICK (acute kidney injury) (Acute) Hyperkalemia (Acute) Gastroenteritis (Acute) NICK (acute kidney injury) (Acute) Hyperkalemia (Acute) Acute renal failure superimposed on stage 4 chronic kidney disease (Acute) Metabolic acidosis (Acute) Acute exacerbation of chronic obstructive pulmonary disease (COPD) (Resolved) Acute respiratory failure with hypoxemia (Resolved) Benign neoplasm of right lung (Resolved) Influenza B (Resolved) Lower GI bleed (Resolved) Severe sepsis (Resolved) Streptococcal pneumonia (Resolved) Urinary retention due to benign prostatic hyperplasia (Resolved) 1. Acute kidney injury on chronic kidney disease stage III due to severe dehydration from GI loss with underlying diabetic nephropathy. Patient creatinine 2.7 on 08/12. Creatinine 5.6 on admission improved to 4.78 with IV hydration. Continue with IV fluids with bicarbonate solution. Urinary output improving. 2. Hyperkalemia corrected with medications with Kayexalate and bicarbonate solution. Repeat blood work frequently. 3. Hx C. difficile colitis with leukocytosis and history of fever. Consider stool for cdiff, antibx. 4. Hypotension from dehydration, GI loss. continue to hold blood pressure medications 5. Diabetes mellitus type 2 primary care management DW hospitalist
--- NOTE | 2018-09-08 17:15 | CHAPLAIN ---
Type of Pastoral Visit _x__ Initial Visit ___ Follow-up Visit ___ On-call Visit ___ General Patient Visit ___ Spiritual Assessment ___ Family Conference ___ Bereavement ___ Rapid Response ___ Code Blue ___ Other (describe below) Pastoral Care Referral From _x__ Patient ___ Family ___ Nurse ___ Physician ___ Economic Consultant ___ Chemical Tank Worker ___ Other (describe below) Sacrament/Intervention _x__ Active listening ___ Anointing ___ Presybeterian ___ Bereavement ___ Communion ___ Marija exploration ___ _x__ Life review _x__ Prayer ___ Reconciliation ___ Sacrament of Sick ___ Supportive presence ___ Wedding ___ Other (describe below) Pastoral Comments
--- NOTE | 2018-09-08 17:49 | PCM.PN.HOSP ---
Patient Problems: Active and Suspected Problems (Last Reviewed 09/07/18 @ 17:22 by Jose J Tucker DO) NICK (acute kidney injury) (Acute) Hyperkalemia (Acute) Subjective: Patient was seen and examined. He complains of having had diarrhea for the last 2 and half days. He had 4 bowel movements at night and 4/5 movement during the day. He last was treated for C. difficile in May 2018. He is feeling slightly better. Denied any abdominal discomfort or fever or chills. Vitals/I&O's: Vital Signs Temp Pulse Resp BP Pulse Ox 97.9 F 88 18 119/55 L 97 09/08/18 16:40 09/08/18 16:40 09/08/18 16:40 09/08/18 16:40 09/08/18 16:40 Oxygen Delivery Method Room Air Weight: 90.718 kg Body Mass Index (BMI) 26.4 Intake and Output for Last 24 Hours 09/06/18 09/07/18 09/08/18 23:59 23:59 23:59 Intake Total 869 / 869 3483 / 3483 Output Total 2250 / 2250 Balance 869 / 869 1233 / 1233 General: Alert, Oriented x3, Cooperative, No apparent distress HEENT: Atraumatic, PERRLA, EOMI, Normocephalic Oral: Moist Mucosa Neck: Supple Lungs: Normal air movement, Diminished - At the lung bases Cardiovascular: Regular rate, Regular Rhythm, Normal S1, Normal S2, No murmurs Abdomen: Bowel Sounds Present, Soft, Non Tender, Non-Distended, No Hepato-splenomegaly Extremities: No edema, Capillary Refill Less than 3 Seconds Skin: No rashes, No breakdown Musculoskeletal: No Tenderness to Palpation of Joints or Extremities Neurological: Cranial nerves II-XII grossly intact Psych/Mental Status: Normal Affect, Appropriate Laboratory Results 09/07/18 18:20: POC Glucose 157 H 09/07/18 19:00: Sodium 134 L, Potassium 6.5 H*, Chloride 112 H, Carbon Dioxide 12.0 L, Anion Gap 10, BUN 90 H, Creatinine 5.22 H, Estim Creat Clear Calc 16.37, Est GFR (MDRD) Af Amer 14 L, Est GFR (MDRD) Non-Af 12 L, BUN/Creatinine Ratio 17.2, Glucose 174 H, Calcium 8.7 09/07/18 21:13: POC Glucose 179 H 09/08/18 02:17: Sodium 136, Potassium 6.3 H*, Chloride 115 H, Carbon Dioxide 13.0 L, Anion Gap 8, BUN 88 H, Creatinine 5.05 H, Estim Creat Clear Calc 16.92, Est GFR (MDRD) Af Amer 15 L, Est GFR (MDRD) Non-Af 12 L, BUN/Creatinine Ratio 17.4, Glucose 157 H, Calcium 8.3 L 09/08/18 02:17: Sodium Cancelled, Potassium Cancelled, Chloride Cancelled, Carbon Dioxide Cancelled, BUN Cancelled, Creatinine Cancelled, Est GFR (MDRD) Af Amer Cancelled, Est GFR (MDRD) Non-Af Cancelled, BUN/Creatinine Ratio Cancelled, Glucose Cancelled, Calcium Cancelled, Phosphorus 6.9 H, Albumin 2.7 L 09/08/18 06:06: POC Glucose 135 H 09/08/18 06:40: Sodium 134 L, Potassium 6.4 H*, Chloride 116 H, Carbon Dioxide 7.0 L*, Anion Gap 11, BUN 85 H, Creatinine 4.86 H, Estim Creat Clear Calc 17.58, Est GFR (MDRD) Af Amer 16 L, Est GFR (MDRD) Non-Af 13 L, BUN/Creatinine Ratio 17.5, Glucose 136 H, Calcium 8.4 L 09/08/18 10:59: POC Glucose 210 H 09/08/18 14:15: Sodium 139, Potassium 6.2 H*, Chloride 114 H, Carbon Dioxide 13.0 L, BUN 86 H, Creatinine 4.78 H, Estim Creat Clear Calc 17.88, Est GFR (MDRD) Af Amer 16 L, Est GFR (MDRD) Non-Af 13 L, BUN/Creatinine Ratio 18.0, Glucose 160 H, Calcium 8.6, Phosphorus 5.3 H, Albumin 3.0 L 09/08/18 16:58: POC Glucose 200 H Current Medications Acetaminophen (Tylenol) 650 mg PO Q6H PRN PRN PRN Reason: Mild pain 1-3/Temp > 100.7 F Albuterol Sulfate (Ventolin Aerosols) 2.5 mg INHALATION Q4HWA.RT [facility] Last Admin: 09/08/18 15:23 Dose: 2.5 mg Documented by: Amiodarone HCl (Cordarone) 200 mg PO BID [facility] Last Admin: 09/08/18 09:11 Dose: 200 mg Documented by: Aspirin (Ecotrin) 81 mg PO DAILY@0800 [facility] Last Admin: 09/08/18 09:10 Dose: 81 mg Documented by: Cilostazol (Pletal) 100 mg PO DAILY [facility] Last Admin: 09/08/18 09:10 Dose: 100 mg Documented by: Clopidogrel Bisulfate (Plavix) 75 mg PO DAILY [facility] Last Admin: 09/08/18 09:11 Dose: 75 mg Documented by: Dextrose (D50w Syringe) 0 gm IV X1 PRN; Protocol PRN Reason: Hypoglycemia Finasteride (Proscar) 5 mg PO DAILY [facility] Last Admin: 09/08/18 09:10 Dose: 5 mg Documented by: Glucagon () 1 mg IM .X1 PRN PRN Reason: Hypoglycemia Heparin Sodium (Porcine) (Heparin Na) 5,000 unit SC Q8 [facility] Last Admin: 09/08/18 13:48 Dose: 5,000 unit Documented by: Sodium Chloride () 1,000 mls @ 150 mls/hr IV .Q6H40M [facility] Last Admin: 09/08/18 13:46 Dose: 150 mls/hr Documented by: Sodium Bicarbonate 100 meq/ (Dextrose) 1,100 mls @ 100 mls/hr IV .Q11H [facility] Last Admin: 09/08/18 12:43 Dose: 100 mls/hr Documented by: Insulin Glargine (Lantus (Bkc)) 30 units SC BID [facility] Last Admin: 09/08/18 09:16 Dose: 30 units Documented by: Insulin Human Lispro (Humalog Kwikpen (Bkc)) 5 unit SC TIDCM [facility] Last Admin: 09/08/18 12:47 Dose: 5 u Documented by: Insulin Human Lispro (Humalog Kwikpen (Bkc)) 0 unit SQ TIDAC [facility]; Protocol Last Admin: 09/08/18 12:47 Dose: 2 u Documented by: Metoprolol Succinate (Toprol Xl (Beta Vanesa)) 50 mg PO DAILY [facility] Last Admin: 09/08/18 12:42 Dose: Not Given Documented by: Nitroglycerin (Nitrostat) 0.4 mg SUBLINGUAL Q5M PRN PRN Reason: Chest Pain Ondansetron HCl (Zofran) 4 mg IV Q8H PRN PRN PRN Reason: NAUSEA/VOMITING Oxycodone HCl (Oxyir) 5 mg PO BID PRN PRN PRN Reason: PAIN Pantoprazole Sodium (Protonix) 40 mg PO DAILY [facility] Last Admin: 09/08/18 09:11 Dose: 40 mg Documented by: Sodium Chloride () 5 - 15 ml IV UD PRN PRN Reason: SALINE FLUSH Medical Necessity - Tobacco Use Smoking Status: Former smoker Tobacco Use: Cigarettes Assessment/Plan All Active Problems (Last Reviewed 09/07/18 @ 17:22 by Jose J Tucker DO) Hypotension, unspecified (Acute) Severe sepsis (Acute) Pseudomembranous enterocolitis (Acute) Hyperkalemia, diminished renal excretion (Acute) Cholelithiasis (Acute) Infectious encephalopathy (Acute) Uremia of renal origin (Acute) Hyperglycemia due to type 2 diabetes mellitus (Acute) Septic shock (Acute) NICK (acute kidney injury) (Acute) C. difficile colitis (Acute) Hyperkalemia (Acute) Metabolic acidosis (Acute) Hyponatremia (Acute) NSTEMI (non-ST elevated myocardial infarction) (Acute) NICK (acute kidney injury) (Acute) Hyperkalemia (Acute) Gastroenteritis (Acute) NICK (acute kidney injury) (Acute) Hyperkalemia (Acute) Acute renal failure superimposed on stage 4 chronic kidney disease (Acute) Metabolic acidosis (Acute) Acute exacerbation of chronic obstructive pulmonary disease (COPD) (Resolved) Acute respiratory failure with hypoxemia (Resolved) Benign neoplasm of right lung (Resolved) Influenza B (Resolved) Lower GI bleed (Resolved) Severe sepsis (Resolved) Streptococcal pneumonia (Resolved) Urinary retention due to benign prostatic hyperplasia (Resolved) 62-year-old male with multiple comorbidities including CKD stage IV, history of serial membranous colitis, who comes in with complaints of nausea and diarrhea and was found to be hypokalemic. 1. Hyperkalemia secondary to acute kidney injury, remains hyperkalemic, status post colostomy, insulin, albuterol, will give the Kayexalate, potassium was 6.2 Nephrology consulted 2. NICK on CKD stage IV, prerenal secondary to dehydration from gastroenteritis, nephrology consulted 3. Acute gastroenteritis, history of C. difficile, will check stoolfor enteric panel, C. difficile panel 4. Severe metabolic acidosis non-gap secondary to NICK/gastroenteritis, patient was on sodium bicarb, will continue on IV fluids, start on bicarbonate drip repeat BMP later in the evening 5. Type II DM, blood sugars are controlled, continue home medications and insulin sliding scale 5. DVT prophylaxis heparin subcu Code Visit Inpatient E&M: 78576 Subs Hosp L2
[2018-09-08 21:09] LABS: Anion Gap 10 (5-15); BUN 76 mg/dL (7-18); BUN/Creat Ratio 16.7 RATIO (10-20); Calcium,Total 8.6 mg/dL (8.5-10.1); Chloride 117 mmol/L (98-107); Creatinine, Serum 4.56 mg/dL (0.70-1.30); EST Glomerular Filtration Rate 14 mL/min (>60); Est Glom Filt Rate - Afr Amer 17 mL/min (>60); Estimated Creatinine Clearance 18.74 ml/min; Glucose 204 mg/dL (74-106); Potassium 5.4 mmol/L (3.5-5.1); Sodium Level 138 mmol/L (136-145)
[2018-09-08] MEDS: hydrALAZINE 25 MG Tablet 12.5 MG PO (22:03)
[2018-09-08] MEDS: diazePAM 5 MG Tablet PO (22:03)
[2018-09-08] MEDS: Atorvastatin Calcium 40 MG Tablet PO (22:03)
[2018-09-08 22:21] LABS: Bedside Glucose 171 mg/dL (70-110)
[2018-09-09] VITALS (17 sets, daily range): BP systolic 101–133; BP diastolic 54–67; PULSE 76–99; RESP 16–20; TEMP 36.4–36.9; O2SAT 96–100
--- NOTE | 2018-09-09 00:25 | NURSING ---
This RN taking over patient care at this time.
[2018-09-09] MEDS: 0.9% Normal Saline 1,000 ML 150 ML IV (04:49)
[2018-09-09 05:55] LABS: Absolute Lymphocyte Count 1.89 X10^3/ul (0.83-4.51); Absolute Neutrophil Count 5.3 X10^3/uL (2.0-7.7); Basophil# 0.01 X10^3/uL; Basophil% 0.1 % (0-1); Eosinophil# 0.76 X10^3/uL; Eosinophils% 8.9 % (0-5); Hematocrit 30.3 % (40-54); Hemoglobin 9.5 g/dl (13.0-16.5); Lymphocyte # 1.89 X10^3/ul (4.0); Lymphocyte % 22.1 % (19-41); Mean Corp Hgb Conc 31.4 g/gl (32-36); Mean Corpuscular Hgb 27.6 pg (27.0-32.0); Mean Corpuscular Volume 88.1 fL (80-94); Mean Platelet Vol. 11.6 fl (6.2-12.0); Monocyte# 0.62 X10^3/uL; Monocyte% 7.2 % (0-10); Neutrophil # 5.25 X10^3/uL (2.7-7.7); Neutrophil % 61.3 % (47-70); Platelet Count 330 K/mm3 (150-450); RBC Distribution Width CV 16.2 % (11.6-14.6); RBC Distribution Width SD 51.6 fl (35.1-43.9); Red Blood Count 3.44 M/mm3 (4.6-6.2); White Blood Count 8.6 K/mm3 (4.4-11.0)
[2018-09-09 06:03] LABS: POSITIVE COUNT NO; POSITIVE DIFFERENTIAL NO; POSITIVE MORPHOLOGY NO
[2018-09-09 06:11] LABS: Albumin, Serum 2.6 g/dL (3.2-5.0); BUN 72 mg/dL (7-18); BUN/Creat Ratio 17.3 RATIO (10-20); Calcium,Total 8.4 mg/dL (8.5-10.1); Chloride 117 mmol/L (98-107); Creatinine, Serum 4.16 mg/dL (0.70-1.30); EST Glomerular Filtration Rate 15 mL/min (>60); Est Glom Filt Rate - Afr Amer 19 mL/min (>60); Estimated Creatinine Clearance 20.54 ml/min; Glucose 135 mg/dL (74-106); Phosphorus 5.2 mg/dL (2.5-4.9); Potassium 5.1 mmol/L (3.5-5.1); Sodium Level 142 mmol/L (136-145)
[2018-09-09] MEDS: Heparin Injection (Vial) 5,000 UNIT/ML VIAL 5000 UNIT SC ×3 (06:46→21:55)
[2018-09-09] MEDS: oxyCODONE 5 MG Tablet PO (06:46)
[2018-09-09 06:56] LABS: Bedside Glucose 131 mg/dL (70-110)
[2018-09-09] MEDS: Albuterol 2.5 MG/3 ML VIAL.NEB. INHALATION ×3 (07:00→19:08)
[2018-09-09] MEDS: Aspirin E.C. 81 MG Tablet PO (08:03)
[2018-09-09] MEDS: Ferrous Sulfate 325 MG Tablet PO ×3 (08:03→17:07)
[2018-09-09] MEDS: Insulin Lispro 100 UNIT/ML INSULN.PEN SC ×3 (08:03→17:07)
[2018-09-09] MEDS: Pantoprazole Sodium 40 MG Tablet PO (08:05)
[2018-09-09] MEDS: Amiodarone 200 MG Tablet PO ×2 (08:05→21:55)
[2018-09-09] MEDS: Allopurinol 300 MG Tablet PO (08:06)
[2018-09-09] MEDS: Clopidogrel Bisulfate 75 MG Tablet PO (08:06)
[2018-09-09] MEDS: Finasteride 5 MG Tablet PO (08:06)
[2018-09-09] MEDS: Cilostazol 50 MG Tablet 100 MG PO (08:06)
--- NOTE | 2018-09-09 08:53 | PCM.PN.REN ---
Patient Problems: Active and Suspected Problems (Last Reviewed 09/07/18 @ 17:22 by Jose J Tucker DO) NICK (acute kidney injury) (Acute) Hyperkalemia (Acute) Subjective: diarrhea 5x last night, once this morning. Denies SOB, abdominal pain. Appetite improved - Physical Exam General: Alert, Oriented x3, Cooperative, No apparent distress, - - up to chair eating Lungs: Diminished, Rales - in bases fine crackles Cardiovascular: Regular rate Abdomen: Bowel Sounds Present, Soft, Non Tender, Non-Distended Extremities: No edema Psych/Mental Status: Normal Affect Vital Signs Temp Pulse Resp BP Pulse Ox 97.7 F L 87 16 101/54 L 100 09/09/18 08:00 09/09/18 08:00 09/09/18 08:00 09/09/18 08:00 09/09/18 08:00 Oxygen Flow Rate (L/min) 2 Oxygen Delivery Method Room Air Weight: 90.718 kg Body Mass Index (BMI) 26.4 Intake and Output for Last 24 Hours 09/07/18 09/08/18 09/09/18 23:59 23:59 23:59 Intake Total 869 / 869 5370 / 5370 1734 / 1734 Output Total 2750 / 2750 Balance 869 / 869 2620 / 2620 1734 / 1734 Microbiology Past 72 Hours 09/08/18 19:25 C. difficile DNA Amplification - Final Stool Laboratory Tests Past 24 Hrs 09/08/18 09/08/18 09/08/18 02:17 14:15 20:28 WBC RBC Hgb Hct MCV MCH MCHC RDW RDW Differential Plt Count MPV Immature Gran % (Auto) Neut % (Auto) Lymph % (Auto) [place] % (Auto) Eos % (Auto) Baso % (Auto) Absolute Neuts (auto) Absolute Lymphs (auto) Total Counted Sodium Cancelled 139 138 Potassium Cancelled 6.2 H* 5.4 H Chloride Cancelled 114 H 117 H Carbon Dioxide Cancelled 13.0 L 11.0 L Anion Gap 10 BUN Cancelled 86 H 76 H Creatinine Cancelled 4.78 H 4.56 H Estim Creat Clear Calc 17.88 18.74 Est GFR (MDRD) Af Amer Cancelled 16 L 17 L Est GFR (MDRD) Non-Af Cancelled 13 L 14 L BUN/Creatinine Ratio Cancelled 18.0 16.7 Glucose Cancelled 160 H 204 H Calcium Cancelled 8.6 8.6 Phosphorus 6.9 H 5.3 H Albumin 2.7 L 3.0 L 09/09/18 09/09/18 05:02 05:02 WBC 8.6 RBC 3.44 L Hgb 9.5 L Hct 30.3 L MCV 88.1 MCH 27.6 MCHC 31.4 L RDW 16.2 H RDW Differential 51.6 H Plt Count 330 MPV 11.6 Immature Gran % (Auto) 0.400 Neut % (Auto) 61.3 Lymph % (Auto) 22.1 [place] % (Auto) 7.2 Eos % (Auto) 8.9 H Baso % (Auto) 0.1 Absolute Neuts (auto) 5.3 Absolute Lymphs (auto) 1.89 Total Counted Not Reportable Sodium 142 Potassium 5.1 Chloride 117 H Carbon Dioxide 12.0 L Anion Gap BUN 72 H Creatinine 4.16 H Estim Creat Clear Calc 20.54 Est GFR (MDRD) Af Amer 19 L Est GFR (MDRD) Non-Af 15 L BUN/Creatinine Ratio 17.3 Glucose 135 H Calcium 8.4 L Phosphorus 5.2 H Albumin 2.6 L POC Glucose 09/09/18 09/08/18 09/08/18 06:42 22:02 16:58 POC Glucose 131 H 171 H 200 H 09/08/18 10:59 POC Glucose 210 H Medical Necessity - Tobacco Use Smoking Status: Former smoker Tobacco Use: Cigarettes Assessment/Plan All Active Problems (Last Reviewed 09/07/18 @ 17:22 by Jose J Tucker DO) Hypotension, unspecified (Acute) Severe sepsis (Acute) Pseudomembranous enterocolitis (Acute) Hyperkalemia, diminished renal excretion (Acute) Cholelithiasis (Acute) Infectious encephalopathy (Acute) Uremia of renal origin (Acute) Hyperglycemia due to type 2 diabetes mellitus (Acute) Septic shock (Acute) NICK (acute kidney injury) (Acute) C. difficile colitis (Acute) Hyperkalemia (Acute) Metabolic acidosis (Acute) Hyponatremia (Acute) NSTEMI (non-ST elevated myocardial infarction) (Acute) NICK (acute kidney injury) (Acute) Hyperkalemia (Acute) Gastroenteritis (Acute) NICK (acute kidney injury) (Acute) Hyperkalemia (Acute) Acute renal failure superimposed on stage 4 chronic kidney disease (Acute) Metabolic acidosis (Acute) Acute exacerbation of chronic obstructive pulmonary disease (COPD) (Resolved) Acute respiratory failure with hypoxemia (Resolved) Benign neoplasm of right lung (Resolved) Influenza B (Resolved) Lower GI bleed (Resolved) Severe sepsis (Resolved) Streptococcal pneumonia (Resolved) Urinary retention due to benign prostatic hyperplasia (Resolved) 1. Acute kidney injury on chronic kidney disease stage III due to severe dehydration from GI loss with underlying diabetic nephropathy. Creatinine 5.6 on admission improved to 4.16 today with IV hydration. Continue with IV fluids with bicarbonate solution. Urinary output improving. 2. Hyperkalemia corrected with medications with Kayexalate and bicarbonate solution. Repeat blood work frequently. 3. Hx C. difficile colitis with leukocytosis and history of fever. cdiff negative x1, WBC improved 4. Hypotension from dehydration, GI loss. continue to hold blood pressure medications 5. Diabetes mellitus type 2 primary care management
[2018-09-09] MEDS: Isosorbide Mononitrate 30 MG Tablet PO (10:05)
[2018-09-09] MEDS: Metoprolol(XL)Succ 50 MG Tablet PO (10:05)
[2018-09-09] MEDS: Insulin Lispro 100 UNIT/ML INSULN.PEN SQ ×2 (11:29→17:08)
[2018-09-09 11:45] LABS: Bedside Glucose 171 mg/dL (70-110)
[2018-09-09] MEDS: Loperamide 2 MG Capsule PO (13:59)
[2018-09-09 17:15] LABS: Bedside Glucose 186 mg/dL (70-110)
--- NOTE | 2018-09-09 18:54 | PN_ITS ---
Patient Problems: Active and Suspected Problems (Last Reviewed 09/07/18 @ 17:22 by Jose J Tucker DO) NICK (acute kidney injury) (Acute) Hyperkalemia (Acute) Subjective: Patient was seen and examined. He complains of diarrhea getting better. Has had 2 BM today. Denies any fever or chills. Stool studies for C. diff/enteric panel is negative. Objective: Physical exam: General: Alert, Oriented x3, Cooperative, No apparent distress HEENT: Atraumatic, PERRLA, EOMI, Normocephalic Oral: Moist Mucosa Neck: Supple Lungs: Normal air movement, Diminished - At the lung bases Cardiovascular: Regular rate, Regular Rhythm, Normal S1, Normal S2, No murmurs Abdomen: Bowel Sounds Present, Soft, Non Tender, Non-Distended, No Hepato-spleno megaly Extremities: No edema, Capillary Refill Less than 3 Seconds Skin: No rashes, No breakdown Musculoskeletal: No Tenderness to Palpation of Joints or Extremities Neurological: Cranial nerves II-XII grossly intact Psych/Mental Status: Normal Affect, Appropriate Vitals/I&O's: Vital Signs Temp Pulse Resp BP Pulse Ox 97.6 F L 76 16 116/61 100 09/09/18 14:00 09/09/18 14:57 09/09/18 14:00 09/09/18 14:00 09/09/18 14:00 Oxygen Flow Rate (L/min) 2 Oxygen Delivery Method Room Air Weight: 90.718 kg Body Mass Index (BMI) 26.4 Intake and Output for Last 24 Hours 09/07/18 09/08/18 09/09/18 23:59 23:59 23:59 Intake Total 869 / 869 5370 / 5370 4182 / 4182 Output Total 2750 / 2750 Balance 869 / 869 2620 / 2620 4182 / 4182 Microbiology Past 72 Hours 09/08/18 19:25 Stool Enteric Bacteriology - Final 09/08/18 19:25 Stool C. difficile DNA Amplification - Final Laboratory Results 09/08/18 20:28: Sodium 138, Potassium 5.4 H, Chloride 117 H, Carbon Dioxide 11.0 L, Anion Gap 10, BUN 76 H, Creatinine 4.56 H, Estim Creat Clear Calc 18.74, Est GFR (MDRD) Af Amer 17 L, Est GFR (MDRD) Non-Af 14 L, BUN/Creatinine Ratio 16.7, Glucose 204 H, Calcium 8.6 09/08/18 22:02: POC Glucose 171 H 09/09/18 05:02: Sodium 142, Potassium 5.1, Chloride 117 H, Carbon Dioxide 12.0 L , BUN 72 H, Creatinine 4.16 H, Estim Creat Clear Calc 20.54, Est GFR (MDRD) Af Amer 19 L, Est GFR (MDRD) Non-Af 15 L, BUN/Creatinine Ratio 17.3, Glucose 135 H, Calcium 8.4 L, Phosphorus 5.2 H, Albumin 2.6 L 09/09/18 05:02: WBC 8.6, RBC 3.44 L, Hgb 9.5 L, Hct 30.3 L, MCV 88.1, MCH 27.6, MCHC 31.4 L, RDW 16.2 H, RDW Differential 51.6 H, Plt Count 330, MPV 11.6, Immature Gran % (Auto) 0.400, Neut % (Auto) 61.3, Lymph % (Auto) 22.1, [place] % (Auto) 7.2, Eos % (Auto) 8.9 H, Baso % (Auto) 0.1, Absolute Neuts (auto) 5.3, Absolute Lymphs (auto) 1.89, Total Counted Not Reportable 09/09/18 06:42: POC Glucose 131 H 09/09/18 11:28: POC Glucose 171 H 09/09/18 17:07: POC Glucose 186 H Current Medications Acetaminophen (Tylenol) 650 mg PO Q6H PRN PRN PRN Reason: Mild pain 1-3/Temp > 100.7 F Albuterol Sulfate (Ventolin Aerosols) 2.5 mg INHALATION Q4HWA.RT [facility] Last Admin: 09/09/18 14:25 Dose: Not Given Documented by: Allopurinol (Zyloprim) 300 mg PO DAILY [facility] Last Admin: 09/09/18 08:06 Dose: 300 mg Documented by: Amiodarone HCl (Cordarone) 200 mg PO BID [facility] Last Admin: 09/09/18 08:05 Dose: 200 mg Documented by: Aspirin (Ecotrin) 81 mg PO DAILY@0800 [facility] Last Admin: 09/09/18 08:03 Dose: 81 mg Documented by: Atorvastatin Calcium (Lipitor) 40 mg PO QHS [facility] Last Admin: 09/08/18 22:03 Dose: 40 mg Documented by: Cilostazol (Pletal) 100 mg PO DAILY [facility] Last Admin: 09/09/18 08:06 Dose: 100 mg Documented by: Clopidogrel Bisulfate (Plavix) 75 mg PO DAILY [facility] Last Admin: 09/09/18 08:06 Dose: 75 mg Documented by: Dextrose (D50w Syringe) 0 gm IV X1 PRN; Protocol PRN Reason: Hypoglycemia Diazepam (Valium) 5 mg PO QHS [facility] Last Admin: 09/08/18 22:03 Dose: 5 mg Documented by: Ferrous Sulfate (Ferrous Sulfate) 325 mg PO TIDCM [facility] Last Admin: 09/09/18 17:07 Dose: 325 mg Documented by: Finasteride (Proscar) 5 mg PO DAILY [facility] Last Admin: 09/09/18 08:06 Dose: 5 mg Documented by: Glucagon () 1 mg IM .X1 PRN PRN Reason: Hypoglycemia Heparin Sodium (Porcine) (Heparin Na) 5,000 unit SC Q8 [facility] Last Admin: 09/09/18 13:59 Dose: 5,000 unit Documented by: Sodium Bicarbonate 100 meq/ (Dextrose) 1,100 mls @ 150 mls/hr IV .Q7H20M [facility] Last Admin: 09/09/18 11:26 Dose: 150 mls/hr Documented by: Insulin Glargine (Lantus (Bkc)) 30 units SC BID [facility] Last Admin: 09/09/18 08:05 Dose: 30 units Documented by: Insulin Human Lispro (Humalog Kwikpen (Bkc)) 5 unit SC TIDCM [facility] Last Admin: 09/09/18 17:07 Dose: 5 u Documented by: Insulin Human Lispro (Humalog Kwikpen (Bkc)) 0 unit SQ TIDAC [facility]; Protocol Last Admin: 09/09/18 17:08 Dose: 1 u Documented by: Isosorbide Mononitrate (Imdur) 30 mg PO DAILY [facility] Last Admin: 09/09/18 10:05 Dose: 30 mg Documented by: Loperamide HCl (Imodium) 2 mg PO Q4H PRN PRN PRN Reason: Diarrhea Last Admin: 09/09/18 13:59 Dose: 2 mg Documented by: Metoprolol Succinate (Toprol Xl (Beta Vanesa)) 50 mg PO DAILY [facility] Last Admin: 09/09/18 10:05 Dose: 50 mg Documented by: Nitroglycerin (Nitrostat) 0.4 mg SUBLINGUAL Q5M PRN PRN Reason: Chest Pain Ondansetron HCl (Zofran) 4 mg IV Q8H PRN PRN PRN Reason: NAUSEA/VOMITING Oxycodone HCl (Oxyir) 5 mg PO BID PRN PRN PRN Reason: PAIN Last Admin: 09/09/18 06:46 Dose: 5 mg Documented by: Pantoprazole Sodium (Protonix) 40 mg PO DAILY [facility] Last Admin: 09/09/18 08:05 Dose: 40 mg Documented by: Sodium Chloride () 5 - 15 ml IV UD PRN PRN Reason: SALINE FLUSH Medical Necessity - Tobacco Use Smoking Status: Former smoker Tobacco Use: Cigarettes Assessment/Plan All Active Problems (Last Reviewed 09/07/18 @ 17:22 by Jose J Tucker DO) Hypotension, unspecified (Acute) Severe sepsis (Acute) Pseudomembranous enterocolitis (Acute) Hyperkalemia, diminished renal excretion (Acute) Cholelithiasis (Acute) Infectious encephalopathy (Acute) Uremia of renal origin (Acute) Hyperglycemia due to type 2 diabetes mellitus (Acute) Septic shock (Acute) NICK (acute kidney injury) (Acute) C. difficile colitis (Acute) Hyperkalemia (Acute) Metabolic acidosis (Acute) Hyponatremia (Acute) NSTEMI (non-ST elevated myocardial infarction) (Acute) NICK (acute kidney injury) (Acute) Hyperkalemia (Acute) Gastroenteritis (Acute) NICK (acute kidney injury) (Acute) Hyperkalemia (Acute) Acute renal failure superimposed on stage 4 chronic kidney disease (Acute) Metabolic acidosis (Acute) Acute exacerbation of chronic obstructive pulmonary disease (COPD) (Resolved) Acute respiratory failure with hypoxemia (Resolved) Benign neoplasm of right lung (Resolved) Influenza B (Resolved) Lower GI bleed (Resolved) Severe sepsis (Resolved) Streptococcal pneumonia (Resolved) Urinary retention due to benign prostatic hyperplasia (Resolved) 62-year-old male with multiple comorbidities including CKD stage IV, history of serial membranous colitis, who comes in with complaints of nausea and diarrhea and was found to be hyperkalemic. 1. Hyperkalemia secondary to acute kidney injury, resolved with kayexalate and sodium bicarbonate as well as treatment of NICK, will trend BMP 2. NICK on CKD stage IV, prerenal secondary to dehydration from gastroenteritis, improving, Nephrology consulted, continue on IVF, labs in am 3. Acute gastroenteritis, history of C. difficile, stool for enteric panel, C. difficile panel negative 4. Severe metabolic acidosis non-gap secondary to NICK/gastroenteritis, improving, on IV fluids, continue on bicarbonate drip repeat BMP in pm and in am 5. Type II DM, blood sugars are controlled, continue home medications and insulin sliding scale 6. DVT prophylaxis heparin subcu Code Visit Inpatient E&M: 59328 Subs Hosp L2
[2018-09-09 20:48] LABS: Anion Gap 13 (5-15); BUN 58 mg/dL (7-18); Calcium,Total 8.7 mg/dL (8.5-10.1); Chloride 113 mmol/L (98-107); Creatinine, Serum 3.41 mg/dL (0.70-1.30); EST Glomerular Filtration Rate 19 mL/min (>60); Est Glom Filt Rate - Afr Amer 24 mL/min (>60); Estimated Creatinine Clearance 25.06 ml/min; Glucose 135 mg/dL (74-106); Potassium 5.1 mmol/L (3.5-5.1); Sodium Level 141 mmol/L (136-145)
[2018-09-09] MEDS: Atorvastatin Calcium 40 MG Tablet PO (21:56)
[2018-09-09] MEDS: 0.9% NaCl Peripheral Flush Adult/Peds IV (22:00)
[2018-09-09] MEDS: diazePAM 5 MG Tablet PO (22:00)
[2018-09-09 22:15] LABS: Bedside Glucose 109 mg/dL (70-110)
[2018-09-10] VITALS (9 sets, daily range): BP systolic 103–107; BP diastolic 58–66; PULSE 72–86; RESP 16; TEMP 36.6–37.2; O2SAT 96–97
[2018-09-10 06:02] LABS: Hematocrit 28.2 % (40-54); Hemoglobin 9.2 g/dl (13.0-16.5); Mean Corp Hgb Conc 32.6 g/gl (32-36); Mean Corpuscular Hgb 28.5 pg (27.0-32.0); Mean Corpuscular Volume 87.3 fL (80-94); Mean Platelet Vol. 11.2 fl (6.2-12.0); Platelet Count 303 K/mm3 (150-450); RBC Distribution Width CV 16.1 % (11.6-14.6); RBC Distribution Width SD 51.9 fl (35.1-43.9); Red Blood Count 3.23 M/mm3 (4.6-6.2); White Blood Count 7.3 K/mm3 (4.4-11.0)
[2018-09-10 06:03] LABS: Scan Indicated on CBC? Y/N NO
[2018-09-10 06:16] LABS: Albumin, Serum 2.6 g/dL (3.2-5.0); BUN 51 mg/dL (7-18); BUN/Creat Ratio 16.6 RATIO (10-20); Calcium,Total 8.3 mg/dL (8.5-10.1); Chloride 112 mmol/L (98-107); Creatinine, Serum 3.08 mg/dL (0.70-1.30); EST Glomerular Filtration Rate 22 mL/min (>60); Est Glom Filt Rate - Afr Amer 26 mL/min (>60); Estimated Creatinine Clearance 27.74 ml/min; Glucose 105 mg/dL (74-106); Phosphorus 3.5 mg/dL (2.5-4.9); Potassium 4.8 mmol/L (3.5-5.1); Sodium Level 141 mmol/L (136-145)
[2018-09-10] MEDS: Heparin Injection (Vial) 5,000 UNIT/ML VIAL 5000 UNIT SC (06:45)
[2018-09-10 07:01] LABS: Bedside Glucose 102 mg/dL (70-110)
[2018-09-10] MEDS: Albuterol 2.5 MG/3 ML VIAL.NEB. INHALATION ×3 (07:06→15:07)
[2018-09-10] MEDS: Ferrous Sulfate 325 MG Tablet PO ×2 (08:09→12:04)
[2018-09-10] MEDS: Aspirin E.C. 81 MG Tablet PO (08:09)
[2018-09-10] MEDS: oxyCODONE 5 MG Tablet PO (08:09)
[2018-09-10] MEDS: Insulin Lispro 100 UNIT/ML INSULN.PEN SC ×2 (08:12→12:04)
[2018-09-10] MEDS: Pantoprazole Sodium 40 MG Tablet PO (08:16)
[2018-09-10] MEDS: Amiodarone 200 MG Tablet PO (08:17)
[2018-09-10] MEDS: Metoprolol(XL)Succ 50 MG Tablet PO (08:17)
[2018-09-10] MEDS: Clopidogrel Bisulfate 75 MG Tablet PO (08:18)
[2018-09-10] MEDS: Cilostazol 50 MG Tablet 100 MG PO (08:18)
[2018-09-10] MEDS: Finasteride 5 MG Tablet PO (08:18)
[2018-09-10] MEDS: Isosorbide Mononitrate 30 MG Tablet PO (08:18)
[2018-09-10] MEDS: Allopurinol 300 MG Tablet PO (08:19)
[2018-09-10] MEDS: Loperamide 2 MG Capsule PO (08:31)
--- NOTE | 2018-09-10 09:08 | PCM.PN.REN ---
Patient Problems: Active and Suspected Problems (Last Reviewed 09/07/18 @ 17:22 by Jose J Tucker DO) NICK (acute kidney injury) (Acute) Hyperkalemia (Acute) Subjective: renal fxn, potassium, acidosis improved. still with 7 episodes of diarrhea last night. Cdiff neg x1. Repeat test pending. Appetite improved. Will stop iv bicarb drip. - Physical Exam General: Alert, Oriented x3, Cooperative, No apparent distress Lungs: Clear to auscultation Cardiovascular: Regular rate Abdomen: Bowel Sounds Present, Soft, Non Tender Extremities: No edema Psych/Mental Status: Normal Affect, Appropriate, Alert and oriented to time, place, person, mood and affect Vital Signs Temp Pulse Resp BP Pulse Ox 98.9 F 86 16 103/58 L 97 09/10/18 03:14 09/10/18 08:17 09/10/18 07:06 09/10/18 03:14 09/10/18 07:06 Oxygen Flow Rate (L/min) 2 Oxygen Delivery Method Room Air Weight: 90.718 kg Body Mass Index (BMI) 26.4 Intake and Output for Last 24 Hours 09/08/18 09/09/18 09/10/18 23:59 23:59 23:59 Intake Total 5370 / 5370 5075 / 5075 900 / 900 Output Total 2750 / 2750 Balance 2620 / 2620 5075 / 5075 900 / 900 Microbiology Past 72 Hours 09/08/18 19:25 Enteric Bacteriology - Final Stool 09/08/18 19:25 C. difficile DNA Amplification - Final Stool Laboratory Tests Past 24 Hrs 09/09/18 09/10/18 09/10/18 19:25 05:35 05:35 WBC 7.3 RBC 3.23 L Hgb 9.2 L Hct 28.2 L MCV 87.3 MCH 28.5 MCHC 32.6 RDW 16.1 H RDW Differential 51.9 H Plt Count 303 MPV 11.2 Sodium 141 141 Potassium 5.1 4.8 Chloride 113 H 112 H Carbon Dioxide 15.0 L 20.0 L Anion Gap 13 BUN 58 H 51 H Creatinine 3.41 H 3.08 H Estim Creat Clear Calc 25.06 27.74 Est GFR (MDRD) Af Amer 24 L 26 L Est GFR (MDRD) Non-Af 19 L 22 L BUN/Creatinine Ratio 17.0 16.6 Glucose 135 H 105 Calcium 8.7 8.3 L Phosphorus 3.5 Albumin 2.6 L POC Glucose 09/10/18 09/09/18 09/09/18 06:44 21:47 17:07 POC Glucose 102 109 186 H 09/09/18 11:28 POC Glucose 171 H Medical Necessity - Tobacco Use Smoking Status: Former smoker Tobacco Use: Cigarettes Assessment/Plan All Active Problems (Last Reviewed 09/07/18 @ 17:22 by Jose J Tucker DO) Hypotension, unspecified (Acute) Severe sepsis (Acute) Pseudomembranous enterocolitis (Acute) Hyperkalemia, diminished renal excretion (Acute) Cholelithiasis (Acute) Infectious encephalopathy (Acute) Uremia of renal origin (Acute) Hyperglycemia due to type 2 diabetes mellitus (Acute) Septic shock (Acute) NICK (acute kidney injury) (Acute) C. difficile colitis (Acute) Hyperkalemia (Acute) Metabolic acidosis (Acute) Hyponatremia (Acute) NSTEMI (non-ST elevated myocardial infarction) (Acute) NICK (acute kidney injury) (Acute) Hyperkalemia (Acute) Gastroenteritis (Acute) NICK (acute kidney injury) (Acute) Hyperkalemia (Acute) Acute renal failure superimposed on stage 4 chronic kidney disease (Acute) Metabolic acidosis (Acute) Acute exacerbation of chronic obstructive pulmonary disease (COPD) (Resolved) Acute respiratory failure with hypoxemia (Resolved) Benign neoplasm of right lung (Resolved) Influenza B (Resolved) Lower GI bleed (Resolved) Severe sepsis (Resolved) Streptococcal pneumonia (Resolved) Urinary retention due to benign prostatic hyperplasia (Resolved) 1. Acute kidney injury on chronic kidney disease stage III due to severe dehydration from GI loss with underlying diabetic nephropathy. Creatinine improving 2. Hyperkalemia corrected with medications with Kayexalate and bicarbonate solution. 3. Hx C. difficile colitis with leukocytosis and history of fever. cdiff negative x1, WBC improved 4. Hypotension from dehydration, GI loss. continue to hold blood pressure medications 5. Diabetes mellitus type 2 primary care management 6. metabolic acidosis from GI loss resolved. May stop bicarb drip after current bag complete.
--- NOTE | 2018-09-10 11:24 | PCM.PN.HOSP ---
Patient Problems: Active and Suspected Problems (Last Reviewed 09/07/18 @ 17:22 by Jose J Tucker DO) NICK (acute kidney injury) (Acute) Hyperkalemia (Acute) Vitals/I&O's: Vital Signs Temp Pulse Resp BP Pulse Ox 97.9 F 79 16 107/66 96 09/10/18 09:10 09/10/18 10:36 09/10/18 10:36 09/10/18 09:10 09/10/18 09:10 Oxygen Flow Rate (L/min) 2 Oxygen Delivery Method Room Air Weight: 90.718 kg Body Mass Index (BMI) 26.4 Intake and Output for Last 24 Hours 09/08/18 09/09/18 09/10/18 23:59 23:59 23:59 Intake Total 5370 / 5370 5075 / 5075 900 / 900 Output Total 2750 / 2750 Balance 2620 / 2620 5075 / 5075 900 / 900 Microbiology Past 72 Hours 09/08/18 19:25 Stool Enteric Bacteriology - Final 09/08/18 19:25 Stool C. difficile DNA Amplification - Final Laboratory Results 09/09/18 11:28: POC Glucose 171 H 09/09/18 17:07: POC Glucose 186 H 09/09/18 19:25: Sodium 141, Potassium 5.1, Chloride 113 H, Carbon Dioxide 15.0 L, Anion Gap 13, BUN 58 H, Creatinine 3.41 H, Estim Creat Clear Calc 25.06, Est GFR (MDRD) Af Amer 24 L, Est GFR (MDRD) Non-Af 19 L, BUN/Creatinine Ratio 17.0, Glucose 135 H, Calcium 8.7 09/09/18 21:47: POC Glucose 109 09/10/18 05:35: Sodium 141, Potassium 4.8, Chloride 112 H, Carbon Dioxide 20.0 L, BUN 51 H, Creatinine 3.08 H, Estim Creat Clear Calc 27.74, Est GFR (MDRD) Af Amer 26 L, Est GFR (MDRD) Non-Af 22 L, BUN/Creatinine Ratio 16.6, Glucose 105, Calcium 8.3 L, Phosphorus 3.5, Albumin 2.6 L 09/10/18 05:35: WBC 7.3, RBC 3.23 L, Hgb 9.2 L, Hct 28.2 L, MCV 87.3, MCH 28.5, MCHC 32.6, RDW 16.1 H, RDW Differential 51.9 H, Plt Count 303, MPV 11.2 09/10/18 06:44: POC Glucose 102 Current Medications Acetaminophen (Tylenol) 650 mg PO Q6H PRN PRN PRN Reason: Mild pain 1-3/Temp > 100.7 F Albuterol Sulfate (Ventolin Aerosols) 2.5 mg INHALATION Q4HWA.RT [facility] Last Admin: 09/10/18 10:36 Dose: 2.5 mg Documented by: Allopurinol (Zyloprim) 300 mg PO DAILY [facility] Last Admin: 09/10/18 08:19 Dose: 300 mg Documented by: Amiodarone HCl (Cordarone) 200 mg PO BID [facility] Last Admin: 09/10/18 08:17 Dose: 200 mg Documented by: Aspirin (Ecotrin) 81 mg PO DAILY@0800 [facility] Last Admin: 09/10/18 08:09 Dose: 81 mg Documented by: Atorvastatin Calcium (Lipitor) 40 mg PO QHS [facility] Last Admin: 09/09/18 21:56 Dose: 40 mg Documented by: Cilostazol (Pletal) 100 mg PO DAILY [facility] Last Admin: 09/10/18 08:18 Dose: 100 mg Documented by: Clopidogrel Bisulfate (Plavix) 75 mg PO DAILY [facility] Last Admin: 09/10/18 08:18 Dose: 75 mg Documented by: Dextrose (D50w Syringe) 0 gm IV X1 PRN; Protocol PRN Reason: Hypoglycemia Diazepam (Valium) 5 mg PO QHS [facility] Last Admin: 09/09/18 22:00 Dose: 5 mg Documented by: Ferrous Sulfate (Ferrous Sulfate) 325 mg PO TIDCM [facility] Last Admin: 09/10/18 08:09 Dose: 325 mg Documented by: Finasteride (Proscar) 5 mg PO DAILY [facility] Last Admin: 09/10/18 08:18 Dose: 5 mg Documented by: Glucagon () 1 mg IM .X1 PRN PRN Reason: Hypoglycemia Heparin Sodium (Porcine) (Heparin Na) 5,000 unit SC Q8 [facility] Last Admin: 09/10/18 06:45 Dose: 5,000 unit Documented by: Insulin Glargine (Lantus (Bkc)) 30 units SC BID [facility] Last Admin: 09/10/18 08:18 Dose: 30 units Documented by: Insulin Human Lispro (Humalog Kwikpen (Bkc)) 5 unit SC TIDCM [facility] Last Admin: 09/10/18 08:12 Dose: 5 u Documented by: Insulin Human Lispro (Humalog Kwikpen (Bkc)) 0 unit SQ TIDAC [facility]; Protocol Last Admin: 09/10/18 06:45 Dose: Not Given Documented by: Isosorbide Mononitrate (Imdur) 30 mg PO DAILY [facility] Last Admin: 09/10/18 08:18 Dose: 30 mg Documented by: Loperamide HCl (Imodium) 2 mg PO Q4H PRN PRN PRN Reason: Diarrhea Last Admin: 09/10/18 08:31 Dose: 2 mg Documented by: Metoprolol Succinate (Toprol Xl (Beta Vanesa)) 50 mg PO DAILY [facility] Last Admin: 09/10/18 08:17 Dose: 50 mg Documented by: Nitroglycerin (Nitrostat) 0.4 mg SUBLINGUAL Q5M PRN PRN Reason: Chest Pain Ondansetron HCl (Zofran) 4 mg IV Q8H PRN PRN PRN Reason: NAUSEA/VOMITING Oxycodone HCl (Oxyir) 5 mg PO BID PRN PRN PRN Reason: PAIN Last Admin: 09/10/18 08:09 Dose: 5 mg Documented by: Pantoprazole Sodium (Protonix) 40 mg PO DAILY [facility] Last Admin: 09/10/18 08:16 Dose: 40 mg Documented by: Sodium Chloride () 5 - 15 ml IV UD PRN PRN Reason: SALINE FLUSH Last Admin: 09/09/18 22:00 Dose: 10 ml Documented by: Medical Necessity - Tobacco Use Smoking Status: Former smoker Tobacco Use: Cigarettes Assessment/Plan All Active Problems (Last Reviewed 09/07/18 @ 17:22 by Jose J Tucker DO) Hypotension, unspecified (Acute) Severe sepsis (Acute) Pseudomembranous enterocolitis (Acute) Hyperkalemia, diminished renal excretion (Acute) Cholelithiasis (Acute) Infectious encephalopathy (Acute) Uremia of renal origin (Acute) Hyperglycemia due to type 2 diabetes mellitus (Acute) Septic shock (Acute) NICK (acute kidney injury) (Acute) C. difficile colitis (Acute) Hyperkalemia (Acute) Metabolic acidosis (Acute) Hyponatremia (Acute) NSTEMI (non-ST elevated myocardial infarction) (Acute) NICK (acute kidney injury) (Acute) Hyperkalemia (Acute) Gastroenteritis (Acute) NICK (acute kidney injury) (Acute) Hyperkalemia (Acute) Acute renal failure superimposed on stage 4 chronic kidney disease (Acute) Metabolic acidosis (Acute) Acute exacerbation of chronic obstructive pulmonary disease (COPD) (Resolved) Acute respiratory failure with hypoxemia (Resolved) Benign neoplasm of right lung (Resolved) Influenza B (Resolved) Lower GI bleed (Resolved) Severe sepsis (Resolved) Streptococcal pneumonia (Resolved) Urinary retention due to benign prostatic hyperplasia (Resolved)
[2018-09-10] MEDS: Insulin Lispro 100 UNIT/ML INSULN.PEN SQ (12:04)
[2018-09-10 12:16] LABS: Bedside Glucose 152 mg/dL (70-110)
--- NOTE | 2018-09-10 14:22 | PCM.DC ---
- Discharge Diagnoses Current Active Problems: Current Active and Chronic Problems (Last Reviewed 09/07/18 @ 17:22 by Jose J Tucker DO) NICK (acute kidney injury) (Acute) Hyperkalemia (Acute) Reason(s) for Visit for Discharge Instructions: Nausea, vomiting, diarrhea You will use the following diet at home:: Renal (restricted protein/sodium) Your food should be the consistency of: Regular Your liquids should be the consistency of: Regular/Thin Discharge Activity: Return to Normal Activity Weight Bearing Status: Weight bearing as tolerated Additional Instructions: Continue to keep yourself hydrated. Continue to use the Imodium as needed for diarrhea. Follow-up with your primary care doctor and heating and ventilating drafter within 2 weeks. You need repeat blood work to check on yiur kidney function within 1 week. Allergies/Adverse Reactions: Allergies No Known Allergies Allergy (Verified 09/07/18 11:43) Medications to take at Discharge Nitroglycerin (INPATIENT USE) [Nitrostat] 0.4 mg SUBLINGUAL Q5M PRN 05/14/17 Oxycodone [Oxyir] 5 mg PO BID PRN PRN 05/14/17 Albuterol Aerosols [Ventolin Aerosols] 2.5 mg INHALATION Q4H PRN PRN 09/15/17 Allopurinol [Zyloprim] 300 mg PO DAILY 09/15/17 Cilostazol 100 mg PO DAILY 09/15/17 Ergocalciferol [Vitamin D] 50,000 unit PO UD 09/15/17 Finasteride [Proscar] 5 mg PO DAILY 09/15/17 Isosorbide Mononitrate [Imdur] 30 mg PO DAILY 09/15/17 Metoprolol(XL)Succ [Toprol Xl (Beta Vanesa)] 50 mg PO DAILY 09/15/17 Pantoprazole Sodium [Protonix] 40 mg PO DAILY 09/15/17 Albuterol Inhaler [Ventolin Hfa] 1 - 2 puff INHALATION Q4H PRN PRN 05/12/18 Diazepam [Valium] 5 mg PO DAILY PRN PRN 05/12/18 Insulin Aspart [Novolog Flexpen] 5 units SUBCUT TIDCM #0 05/16/18 Clopidogrel Bisulfate [Clopidogrel] 75 mg PO DAILY 08/04/18 Ferrous Sulfate 325 mg PO TID 08/04/18 Amiodarone HCl [Cordarone] 200 mg PO BID #60 tab 08/05/18 Aspirin E.C. [Ecotrin] 81 mg PO DAILY@0800 09/07/18 Simvastatin 80 mg PO QHS 09/07/18 Acetaminophen [Tylenol Tablet] 650 mg PO Q6H PRN PRN tab 09/10/18 Insulin Glargine [Lantus SoloStar Pen] 30 units SUBCUT BID pen 09/10/18 Loperamide [Imodium] 2 mg PO Q4H PRN PRN #30 cap 09/10/18 Sodium Bicarbonate 650 mg PO TID #90 tab 09/10/18 The following prescriptions were given: Loperamide [Imodium] 2 mg PO Q4H PRN PRN #30 cap PRN Reason: Diarrhea Transmission Status: Pending to [address] Sodium Bicarbonate 650 mg PO TID #90 tab Transmission Status: Pending to [address] Primary Care Physician: Caesar Chavez DO [Primary Care Provider] - Please follow up with your Primary Care Physician in: within 2 weeks Test Results: Test results from this visit will be discussed in further detail at your follow-up appointment, if applicable. Please Follow Up With: Daysi Magana DO When: 2-4 weeks Proposed Discharge Date: 09/10/18
--- NOTE | 2018-09-10 14:25 | DS.PCM_ITS ---
Discharge Date and Diagnosis Date of Admission: 09/07/18 Date of Discharge: 09/10/18 - Primary Discharge Diagnosis Active and Suspected Problems (Last Reviewed 09/07/18 @ 17:22 by Jose J Tucker DO) NICK (acute kidney injury) (Acute) Hyperkalemia (Acute) Acute gastroenteritis Severe metabolic acidosis - Secondary Discharge Diagnosis Chronic Problems (Last Reviewed 09/07/18 @ 17:22 by Jose J Tucker DO) Acute renal failure superimposed on stage 3 chronic kidney disease (Chronic) S/P PTCA (percutaneous transluminal coronary angioplasty) (Chronic) HLD (hyperlipidemia) (Chronic) Clostridium difficile colitis (Chronic) Chronic hypoxemic respiratory failure (Chronic) 2-3 LPM chronically Colon cancer (Chronic) had surgery with no chemo or radiation at [facility] fall Status post colon resection (Chronic) subtotal for colon CA in the fall at [facility] Hemorrhoids (Chronic) CKD (chronic kidney disease) stage 4, GFR 15-29 ml/min (Chronic) Nicotine dependence, cigarettes, in remission (Chronic) Stage 3 severe COPD by GOLD classification (Chronic) FEV1 37% predicted Heme + stool (Chronic) Anemia of chronic renal failure (Chronic) H/O pneumonectomy (Chronic) Right LL lobectomy due to benign tumor Peripheral vascular disease (Chronic) Radiculopathy affecting upper extremity (Chronic) Iron deficiency anemia (Chronic) Increased PTH level (Chronic) secondary to CRF stage4 Low vitamin D level (Chronic) Paroxysmal atrial fibrillation (Chronic) Nocturnal hypoxia (Chronic) Noncompliance with CPAP treatment (Chronic) LADARIUS (obstructive sleep apnea) (Chronic) Gout (Chronic) History of tobacco abuse (Chronic) quit in April 2017 Hx of CABG (Chronic) x3 2004 Coronary artery disease (Chronic) has had 3 stents.....the last stent he thinks in 2008 Hypertension (Chronic) Diabetes mellitus type 2 in obese (Chronic) Hospital Course and Treatment None Operations: None Procedures: None Summary of Care Provided: 62-year-old male with multiple comorbidities including CKD stage IV, history of serial membranous colitis, who comes in with complaints of nausea and diarrhea and was found to be hyperkalemic. His management was as follows: 1. Hyperkalemia secondary to acute kidney injury, resolved with kayexalate and sodium bicarbonate as well as treatment of NICK, will follow-up with BMP in the outpatient. 2. NICK on CKD stage IV, prerenal secondary to dehydration from gastroenteritis, nephrology consulted, stool studies negative for enteric pathogens and C. diff. Managed on IVF. 3. Acute gastroenteritis, history of C. difficile, stool for enteric panel, C. difficile panel negative 4. Severe metabolic acidosis non-gap secondary to NICK/gastroenteritis,improved on IVF and sodium bicarbonate drip. Discharged on oral bicarbonate. 5. Type II DM, blood sugars are controlled, managed on insulin and ISS Subjective: On the day of discharge, patient was seen and examined. Feels much better. Reports having about 7 bowel movements altogether yesterday. Did not ask for Imodium. He has been walking around the [facility] station. Denies any fever or chills. Received Imodium this morning Objective: Physical exam: General: Alert, Oriented x3, Cooperative, No apparent distress HEENT: Atraumatic, PERRLA, EOMI, Normocephalic Oral: Moist Mucosa Neck: Supple Lungs: Normal air movement, Diminished - At the lung bases Cardiovascular: Regular rate, Regular Rhythm, Normal S1, Normal S2, No murmurs Abdomen: Bowel Sounds Present, Soft, Non Tender, Non-Distended, No Hepato- splenomegaly Extremities: No edema, Capillary Refill Less than 3 Seconds Skin: No rashes, No breakdown Musculoskeletal: No Tenderness to Palpation of Joints or Extremities Neurological: Cranial nerves II-XII grossly intact Psych/Mental Status: Normal Affect, Appropriate - Physical Exam Vital Signs Temp Pulse Resp BP Pulse Ox 97.9 F 79 16 107/66 96 09/10/18 09:10 09/10/18 10:36 09/10/18 10:36 09/10/18 09:10 09/10/18 09:10 Oxygen Flow Rate (L/min) 2 Oxygen Delivery Method Room Air Weight: 90.718 kg Body Mass Index (BMI) 26.4 Intake and Output for Last 24 Hours 09/08/18 09/09/18 09/10/18 23:59 23:59 23:59 Intake Total 5370 / 5370 5075 / 5075 900 / 900 Output Total 2750 / 2750 Balance 2620 / 2620 5075 / 5075 900 / 900 Microbiology Past 72 Hours 09/08/18 19:25 Enteric Bacteriology - Final Stool 09/08/18 19:25 C. difficile DNA Amplification - Final Stool Laboratory Tests Past 24 Hrs 09/09/18 09/10/18 09/10/18 19:25 05:35 05:35 WBC 7.3 RBC 3.23 L Hgb 9.2 L Hct 28.2 L MCV 87.3 MCH 28.5 MCHC 32.6 RDW 16.1 H RDW Differential 51.9 H Plt Count 303 MPV 11.2 Sodium 141 141 Potassium 5.1 4.8 Chloride 113 H 112 H Carbon Dioxide 15.0 L 20.0 L Anion Gap 13 BUN 58 H 51 H Creatinine 3.41 H 3.08 H Estim Creat Clear Calc 25.06 27.74 Est GFR (MDRD) Af Amer 24 L 26 L Est GFR (MDRD) Non-Af 19 L 22 L BUN/Creatinine Ratio 17.0 16.6 Glucose 135 H 105 Calcium 8.7 8.3 L Phosphorus 3.5 Albumin 2.6 L POC Glucose 09/10/18 09/10/18 09/09/18 12:00 06:44 21:47 POC Glucose 152 H 102 109 09/09/18 17:07 POC Glucose 186 H Discharge Diet: Renal Diet Discharge Activity: Return to Normal Activity Weight Bearing Status: Weight bearing as tolerated Home Medications: Medications to take at Discharge Nitroglycerin (INPATIENT USE) [Nitrostat] 0.4 mg SUBLINGUAL Q5M PRN 05/14/17 Oxycodone [Oxyir] 5 mg PO BID PRN PRN 05/14/17 Albuterol Aerosols [Ventolin Aerosols] 2.5 mg INHALATION Q4H PRN PRN 09/15/17 Allopurinol [Zyloprim] 300 mg PO DAILY 09/15/17 Cilostazol 100 mg PO DAILY 09/15/17 Ergocalciferol [Vitamin D] 50,000 unit PO UD 09/15/17 Finasteride [Proscar] 5 mg PO DAILY 09/15/17 Isosorbide Mononitrate [Imdur] 30 mg PO DAILY 09/15/17 Metoprolol(XL)Succ [Toprol Xl (Beta Vanesa)] 50 mg PO DAILY 09/15/17 Pantoprazole Sodium [Protonix] 40 mg PO DAILY 09/15/17 Albuterol Inhaler [Ventolin Hfa] 1 - 2 puff INHALATION Q4H PRN PRN 05/12/18 Diazepam [Valium] 5 mg PO DAILY PRN PRN 05/12/18 Insulin Aspart [Novolog Flexpen] 5 units SUBCUT TIDCM #0 05/16/18 Clopidogrel Bisulfate [Clopidogrel] 75 mg PO DAILY 08/04/18 Ferrous Sulfate 325 mg PO TID 08/04/18 Amiodarone HCl [Cordarone] 200 mg PO BID #60 tab 08/05/18 Aspirin E.C. [Ecotrin] 81 mg PO DAILY@0800 09/07/18 Simvastatin 80 mg PO QHS 09/07/18 Acetaminophen [Tylenol Tablet] 650 mg PO Q6H PRN PRN tab 09/10/18 Insulin Glargine [Lantus SoloStar Pen] 30 units SUBCUT BID pen 09/10/18 Loperamide [Imodium] 2 mg PO Q4H PRN PRN #30 cap 09/10/18 Sodium Bicarbonate 650 mg PO TID #90 tab 09/10/18 Following Prescrptions Were Given to Patient: Loperamide [Imodium] 2 mg PO Q4H PRN PRN #30 cap PRN Reason: Diarrhea Transmission Status: Received by [address] Sodium Bicarbonate 650 mg PO TID #90 tab Transmission Status: Received by [place] [id number] [address] [facility] Primary Care Physician: Caesar Chavez DO [Primary Care Provider] - Please follow up with your Primary Care Physician in: within 2 weeks Please Follow Up With: Daysi Magana DO When: 2-4 weeks Disposition: Home Minutes spent on discharge:: 55 Patient Condition:: Stable Medical Necessity - Tobacco Use Smoking Status: Former smoker Tobacco Use: Cigarettes Meaningful Use Info Meaningful Use Diagnoses (Choose all that apply): None applicable Code Visit Inpatient E&M: 00999 Disch Hosp
--- NOTE | 2018-09-10 14:55 | NURSING ---
This RN taking over care of patient at this time.
--- NOTE | 2018-09-10 15:30 | PCA ---
Spoke with the field secretary at Dr. Butler office, she got all the information and stated that the nurse would call me to set up apt. Waited about an hour and still hadn't heard back. Went ahead and finished up discharge with instructions to call them tomorrow if he hasn't heard from them yet.
--- NOTE | 2018-09-14 14:45 | CASEMGMT ---
DEVEN CM DC PHONE CALL DC DATE: 09/10/18 DC Disposition: Home LACE/STRATA: 28/06 Attempted call to phone. No answer. Ant CARVALHO BSN ACM
== END 2018-09-10 17:51 | disposition home or self-care (01) | DRG 682 ==
LOC: ED 13:03 → PCU 17:04
PROVIDERS: Internal Medicine Nephrology; Emergency Provider Emergency Medicine; Family Provider Family Medicine; PCP Family Medicine; Visit Provider Internal Medicine
DX: N17.9 Acute kidney failure, unspecified (principal); E43 Unspecified severe protein-calorie malnutrition; E87.2 Acidosis; J96.11 Chronic respiratory failure with hypoxia; E86.0 Dehydration; E87.5 Hyperkalemia; E11.22 Type 2 diabetes mellitus with diabetic chronic kidney disease; I12.9 Hypertensive chronic kidney disease with stage 1 through stage 4 chronic kidney disease, or unspecified chronic kidney disease; N18.3 Chronic kidney disease, stage 3 (moderate); K52.9 Noninfective gastroenteritis and colitis, unspecified; E78.5 Hyperlipidemia, unspecified; I25.10 Atherosclerotic heart disease of native coronary artery without angina pectoris; Z95.5 Presence of coronary angioplasty implant and graft; Z87.891 Personal history of nicotine dependence; Z90.49 Acquired absence of other specified parts of digestive tract; Z90.2 Acquired absence of lung [part of]; Z85.038 Personal history of other malignant neoplasm of large intestine; Z99.81 Dependence on supplemental oxygen; G47.33 Obstructive sleep apnea (adult) (pediatric); E55.9 Vitamin D deficiency, unspecified; M10.9 Gout, unspecified; Z68.26 Body mass index [BMI] 26.0-26.9, adult
CPT/HCPCS: 36415; 80048; 80069; 82040; 82962; 83605; 84100; 84132; 85025; 85027; 87493; 87506; 93005; 94640; 97802; 99283; J7030; A4216

== ENCOUNTER → 2018-10-02 | Outpatient (CLI) | payer MEDICARE, SELFPAY ==
[2018-10-02 09:24] VITALS: BMI 27.9
[2018-10-02 11:55] LABS: Albumin, Serum 3.7 g/dL (3.2-5.0); BUN 53 mg/dL (7-18); BUN/Creat Ratio 16.7 RATIO (10-20); Calcium,Total 9.5 mg/dL (8.5-10.1); Chloride 116 mmol/L (98-107); Creatinine, Serum 3.17 mg/dL (0.70-1.30); EST Glomerular Filtration Rate 21 mL/min (>60); Est Glom Filt Rate - Afr Amer 26 mL/min (>60); Glucose 140 mg/dL (74-106); Phosphorus 3.3 mg/dL (2.5-4.9); Potassium 5.2 mmol/L (3.5-5.1); Sodium Level 136 mmol/L (136-145)
== END | disposition home or self-care (01) ==
PROVIDERS: Family Provider Family Medicine; PCP Family Medicine; Referring Provider Internal Medicine Nephrology; Visit Provider Internal Medicine Nephrology
DX: N17.9 Acute kidney failure, unspecified (principal)
CPT/HCPCS: 36415; 80069

== ENCOUNTER → 2018-10-13 | Outpatient (CLI) | payer MEDICARE, SELFPAY ==
[2018-10-02 09:24] VITALS: BMI 27.9
[2018-10-13 13:34] LABS: Albumin, Serum 3.3 g/dL (3.2-5.0); BUN 63 mg/dL (7-18); BUN/Creat Ratio 19.8 RATIO (10-20); Calcium,Total 9.3 mg/dL (8.5-10.1); Chloride 113 mmol/L (98-107); Creatinine, Serum 3.18 mg/dL (0.70-1.30); EST Glomerular Filtration Rate 21 mL/min (>60); Est Glom Filt Rate - Afr Amer 26 mL/min (>60); Glucose 136 mg/dL (74-106); Phosphorus 3.1 mg/dL (2.5-4.9); Potassium 4.8 mmol/L (3.5-5.1); Sodium Level 141 mmol/L (136-145)
== END | disposition home or self-care (01) ==
LOC: LAB 11:42
PROVIDERS: Family Provider Family Medicine; PCP Family Medicine; Referring Provider Internal Medicine Nephrology; Visit Provider Internal Medicine Nephrology
DX: E87.2 Acidosis (principal); N17.9 Acute kidney failure, unspecified
CPT/HCPCS: 36415; 80069

== ENCOUNTER → 2018-11-19 | Outpatient (CLI) | payer MEDICARE, SELFPAY ==
[2017-10-14 08:12] VITALS: BMI 31.5
[2018-10-02 09:24] VITALS: BMI 27.9
[2018-11-19 15:52] LABS: Hemoglobin 12.4 g/dL (13.0-16.5)
[2018-11-19 16:27] LABS: Anion Gap 11 (5-15); BUN 44 mg/dL (7-18); Calcium,Total 9.1 mg/dL (8.5-10.1); Chloride 109 mmol/L (98-107); Creatinine, Serum 2.59 mg/dL (0.70-1.30); EST Glomerular Filtration Rate 27 mL/min (>60); Est Glom Filt Rate - Afr Amer 32 mL/min (>60); Glucose 159 mg/dL (74-106); Potassium 4.2 mmol/L (3.5-5.1); Sodium Level 144 mmol/L (136-145)
== END | disposition home or self-care (01) ==
LOC: LAB.FUTURE 13:39
PROVIDERS: Family Provider Family Medicine; PCP Family Medicine; Referring Provider Internal Medicine Nephrology; Visit Provider Internal Medicine Nephrology
DX: D62 Acute posthemorrhagic anemia (principal); N17.9 Acute kidney failure, unspecified
CPT/HCPCS: 36415; 80048; 85018

== ENCOUNTER 2018-12-29 10:33 | Outpatient (RCR) | payer MEDICARE, SELFPAY ==
[2018-10-02 09:24] VITALS: BMI 27.9
[2018-12-29 11:56] LABS: Albumin, Serum 3.5 g/dL (3.2-5.0); BUN 45 mg/dL (7-18); BUN/Creat Ratio 15.7 RATIO (10-20); Chloride 108 mmol/L (98-107); Creatinine, Serum 2.87 mg/dL (0.70-1.30); EST Glomerular Filtration Rate 24 mL/min (>60); Est Glom Filt Rate - Afr Amer 29 mL/min (>60); Glucose 209 mg/dL (74-106); Phosphorus 3.2 mg/dL (2.5-4.9); Potassium 4.2 mmol/L (3.5-5.1); Sodium Level 138 mmol/L (136-145)
== END 2018-12-29 18:00 | disposition home or self-care (01) ==
LOC: LAB 10:33
PROVIDERS: Family Provider Family Medicine; PCP Family Medicine; Referring Provider Internal Medicine Nephrology; Visit Provider Internal Medicine Nephrology
DX: N17.9 Acute kidney failure, unspecified (principal); E87.2 Acidosis
CPT/HCPCS: 36415; 80069

== ENCOUNTER 2019-01-28 08:17 | Outpatient (RCR) | payer MEDICARE, SELFPAY ==
[2018-10-02 09:24] VITALS: BMI 27.9
[2019-01-27 15:22] LABS: Hemoglobin 13.1 g/dL (13.0-16.5); Mean Corpuscular Hgb 29.6 pg (27.0-32.0); Mean Corpuscular Volume 92.8 fL (80-94); Mean Platelet Vol. 12.2 fl (6.2-12.0); Platelet Count 243 K/mm3 (150-450); RBC Distribution Width CV 14.2 % (11.6-14.6); RBC Distribution Width SD 47.4 fl (35.1-43.9); Red Blood Count 4.42 M/mm3 (4.6-6.2)
[2019-01-27 15:39] LABS: Hemoglobin A1c 8.3 % (4.2-6.3)
[2019-01-27 16:02] LABS: Vitamin D,25 Hydroxy 25.3 ng/mL (29.95-100.01)
[2019-01-27 16:03] LABS: ALB/GLOB Ratio 0.8 RATIO (0.9-2.4); AST(SGOT) 25 U/L (15-37); Alanine Aminotransfer ALT/SGPT 29 U/L (16-61); Albumin, Serum 3.1 g/dL (3.2-5.0); Alkaline Phosphatase 134 U/L (45-117); BUN 43 mg/dL (7-18); BUN/Creat Ratio 14.1 RATIO (10-20); Bilirubin, Direct 0.07 mg/dL (0.00-0.30); Calcium,Total 8.6 mg/dL (8.5-10.1); Chloride 108 mmol/L (98-107); Creatinine, Serum 3.04 mg/dL (0.70-1.30); EST Glomerular Filtration Rate 22 mL/min (>60); Est Glom Filt Rate - Afr Amer 27 mL/min (>60); Ferritin 44 ng/mL (26-388); Globulin 4.1 g/dL (2.2-4.2); Glucose 191 mg/dL (74-106); Iron 51 ug/dL (65-175); Phosphorus 2.8 mg/dL (2.5-4.9); Potassium 4.9 mmol/L (3.5-5.1); Protein, Total 7.2 g/dL (6.4-8.2); Sodium Level 139 mmol/L (136-145); Thyroid Stim Hormone (TSH) 8.42 uIU/mL (0.358-3.74); Uric Acid 4.4 mg/dL (3.5-7.2)
[2019-01-28 09:25] LABS: Cholesterol 203 mg/dL (200); High Density Lipoprotein 50 mg/dL; Triglycerides 260 mg/dL; Very Low Density Lipoprotein 52 mg/dL (5-40)
== END 2019-01-28 18:00 | disposition home or self-care (01) ==
LOC: LAB 08:17
PROVIDERS: Family Provider Student in an Organized Health Care Education/Training Program; PCP Student in an Organized Health Care Education/Training Program; Referring Provider Internal Medicine Nephrology; Visit Provider Internal Medicine Nephrology
DX: N17.9 Acute kidney failure, unspecified (principal); E87.2 Acidosis; E11.21 Type 2 diabetes mellitus with diabetic nephropathy; M10.9 Gout, unspecified; D64.9 Anemia, unspecified; E55.9 Vitamin D deficiency, unspecified
CPT/HCPCS: 36415; 80061; 80069; 82043; 82247; 82248; 82306; 82728; 83036; 83540; 84075; 84156; 84443; 84450; 84460; 84550; 85027

== ENCOUNTER → 2019-03-13 10:10 | Outpatient (CLI) | payer MEDICARE, OTHER, SELFPAY ==
[2019-02-19 11:03] VITALS: BMI 30.1
[2019-03-13 11:11] LABS: Albumin, Serum 3.4 g/dL (3.2-5.0); BUN 53 mg/dL (7-18); BUN/Creat Ratio 15.7 RATIO (10-20); Chloride 110 mmol/L (98-107); Creatinine, Serum 3.38 mg/dL (0.70-1.30); EST Glomerular Filtration Rate 20 mL/min (>60); Est Glom Filt Rate - Afr Amer 24 mL/min (>60); Glucose 323 mg/dL (74-106); Phosphorus 3.2 mg/dL (2.5-4.9); Potassium 4.7 mmol/L (3.5-5.1); Sodium Level 139 mmol/L (136-145); Thyroid Stim Hormone (TSH) 5.86 uIU/mL (0.358-3.74)
== END ==
PROVIDERS: Family Provider Student in an Organized Health Care Education/Training Program; PCP Student in an Organized Health Care Education/Training Program; Referring Provider Internal Medicine Nephrology; Visit Provider Internal Medicine Nephrology
DX: E03.9 Hypothyroidism, unspecified (principal); N17.9 Acute kidney failure, unspecified
CPT/HCPCS: 36415; 80069; 84443

== ENCOUNTER → 2019-04-29 | Outpatient (CLI) | payer MEDICARE, OTHER, SELFPAY ==
[2019-04-19 08:54] VITALS: BMI 32.6
[2019-04-29 13:16] LABS: Anion Gap 6 (5-15); BUN 47 mg/dL (7-18); BUN/Creat Ratio 15.2 RATIO (10-20); Calcium,Total 9.1 mg/dL (8.5-10.1); Chloride 114 mmol/L (98-107); EST Glomerular Filtration Rate 22 mL/min (>60); Est Glom Filt Rate - Afr Amer 26 mL/min (>60); Free T3 2.1 pg/mL (2.18-3.98); Glucose 72 mg/dL (74-106); Potassium 4.5 mmol/L (3.5-5.1); Sodium Level 143 mmol/L (136-145); T4 Free Direct 1.07 ng/dL (0.76-1.46); Thyroid Stim Hormone (TSH) 5.69 uIU/mL (0.358-3.74)
== END | disposition home or self-care (01) ==
LOC: LAB 11:37
PROVIDERS: PCP Student in an Organized Health Care Education/Training Program; Referring Provider Internal Medicine Nephrology; Visit Provider Internal Medicine Nephrology
DX: E03.9 Hypothyroidism, unspecified (principal); E11.22 Type 2 diabetes mellitus with diabetic chronic kidney disease; N18.4 Chronic kidney disease, stage 4 (severe); N17.9 Acute kidney failure, unspecified; E55.9 Vitamin D deficiency, unspecified
CPT/HCPCS: 36415; 80048; 84439; 84443; 84481

== ENCOUNTER → 2019-07-09 | Outpatient (CLI) | payer MEDICARE, OTHER, SELFPAY ==
[2019-04-19 08:54] VITALS: BMI 32.6
[2019-07-09 08:06] LABS: Hematocrit 38.9 % (40-54); Hemoglobin 12.3 g/dL (13.0-16.5); Mean Corp Hgb Conc 31.6 g/dL (32-36); Mean Corpuscular Volume 91.7 fL (80-94); Platelet Count 284 K/mm3 (150-450); RBC Distribution Width CV 14.6 % (11.6-14.6); RBC Distribution Width SD 48.3 fl (35.1-43.9); Red Blood Count 4.24 M/mm3 (4.6-6.2); White Blood Count 9.5 K/mm3 (4.4-11.0)
[2019-07-09 08:20] LABS: Protein, Urine (Random) 302.3 mg/dL (<11.9); Protein:Creat Ratio 4107 mg/g CRE (0-200)
[2019-07-09 08:28] LABS: Albumin, Serum 2.9 g/dL (3.2-5.0); BUN 59 mg/dL (7-18); BUN/Creat Ratio 20.5 RATIO (10-20); Calcium,Total 8.9 mg/dL (8.5-10.1); Chloride 108 mmol/L (98-107); Creatinine, Serum 2.88 mg/dL (0.70-1.30); EST Glomerular Filtration Rate 24 mL/min (>60); Est Glom Filt Rate - Afr Amer 29 mL/min (>60); Glucose 267 mg/dL (74-106); Phosphorus 4.2 mg/dL (2.5-4.9); Potassium 4.9 mmol/L (3.5-5.1); Sodium Level 138 mmol/L (136-145)
[2019-07-09 08:29] LABS: PTHIN 149.9 pg/mL (18.4-80.1)
[2019-07-09 11:44] LABS: Free T3 2.7 pg/mL (2.18-3.98); T4 Free Direct 1.12 ng/dL (0.76-1.46); Thyroid Stim Hormone (TSH) 5.57 uIU/mL (0.358-3.74)
== END | disposition home or self-care (01) ==
LOC: LAB.FUTURE 07:37 → LAB 07:41
PROVIDERS: PCP Student in an Organized Health Care Education/Training Program; Referring Provider Internal Medicine Nephrology; Visit Provider Internal Medicine Nephrology
DX: E11.22 Type 2 diabetes mellitus with diabetic chronic kidney disease (principal); N18.4 Chronic kidney disease, stage 4 (severe); E55.9 Vitamin D deficiency, unspecified; E03.9 Hypothyroidism, unspecified
CPT/HCPCS: 36415; 80069; 82306; 82570; 83970; 84156; 84439; 84443; 84481; 85027

== ENCOUNTER → 2019-08-31 | Outpatient (CLI) | payer MEDICARE, OTHER, SELFPAY ==
[2019-04-19 08:54] VITALS: BMI 32.6
[2019-08-31 10:10] LABS: Free T3 1.9 pg/mL (2.18-3.98); T4 Free Direct 0.98 ng/dL (0.76-1.46); Thyroid Stim Hormone (TSH) 3.44 uIU/mL (0.358-3.74)
== END | disposition home or self-care (01) ==
PROVIDERS: PCP Student in an Organized Health Care Education/Training Program; Referring Provider Internal Medicine Nephrology; Visit Provider Internal Medicine Nephrology
DX: E03.9 Hypothyroidism, unspecified (principal)
CPT/HCPCS: 36415; 84439; 84443; 84481

== ENCOUNTER → 2019-11-29 | Outpatient (CLI) | payer MEDICARE, SELFPAY ==
[2019-04-19 08:54] VITALS: BMI 32.6
[2019-09-30 12:54] VITALS: BMI 29.9
[2019-11-29 12:56] LABS: PTHIN 186.5 pg/mL (18.4-80.1)
[2019-11-29 13:06] LABS: Albumin, Serum 3.7 g/dL (3.2-5.0); BUN 95 mg/dL (7-18); BUN/Creat Ratio 21.2 RATIO (10-20); Chloride 117 mmol/L (98-107); Creatinine, Serum 4.49 mg/dL (0.70-1.30); EST Glomerular Filtration Rate 14 mL/min (>60); Est Glom Filt Rate - Afr Amer 17 mL/min (>60); Free T3 1.9 pg/mL (2.18-3.98); Glucose 234 mg/dL (74-106); Phosphorus 4.5 mg/dL (2.5-4.9); Potassium 5.4 mmol/L (3.5-5.1); Sodium Level 139 mmol/L (136-145); T4 Free Direct 0.98 ng/dL (0.76-1.46); Thyroid Stim Hormone (TSH) 1.18 uIU/mL (0.358-3.74)
== END | disposition home or self-care (01) ==
PROVIDERS: PCP Student in an Organized Health Care Education/Training Program; Referring Provider Internal Medicine Nephrology; Visit Provider Internal Medicine Nephrology
DX: N18.4 Chronic kidney disease, stage 4 (severe) (principal); E03.9 Hypothyroidism, unspecified
CPT/HCPCS: 36415; 80069; 83970; 84439; 84443; 84481

== ENCOUNTER 2019-12-07 18:07 | Inpatient (IN) | payer MEDICARE, SELFPAY ==
[2019-09-30 12:54] VITALS: BMI 29.9
[2019-12-07 18:07] VITALS: BP 148/73; PULSE 66; RESP 15; TEMP 36.4; O2SAT 98; BMI 29.6
--- NOTE | 2019-12-07 18:15 | EKG12_ITS ---
Test Reason : ABN LABS Blood Pressure : / mmHG Vent. Rate : 065 BPM Atrial Rate : 065 BPM P-R Int : 264 ms QRS Dur : 098 ms QT Int : 412 ms P-R-T Axes : 041 045 096 degrees QTc Int : 428 ms Sinus rhythm with 1st degree A-V block Nonspecific ST and T wave abnormality Abnormal ECG Confirmed by HARSH ASIF, SARA ([id number]), graphics editor JARED MADRID () on 12/10/2019 1:04:15 PM Referred By: ALEISHA Confirmed By:SARA HOUSE MD
[2019-12-07 18:36] LABS: Absolute Lymphocyte Count 2.08 X10^3/uL (0.83-4.51); Absolute Neutrophil Count 5.1 X10^3/uL (2.0-7.7); Basophil# 0.07 X10^3/uL; Basophil% 0.8 % (0-1); Eosinophil# 0.63 X10^3/uL; Eosinophils% 7.3 % (0-5); Hematocrit 37.5 % (40-54); Hemoglobin 12.1 g/dL (13.0-16.5); Lymphocyte # 2.08 X10^3/ul (4.0); Lymphocyte % 24.1 % (19-41); Mean Corp Hgb Conc 32.3 g/dL (32-36); Mean Corpuscular Hgb 29.7 pg (27.0-32.0); Mean Corpuscular Volume 91.9 fL (80-94); Monocyte# 0.59 X10^3/uL; Monocyte% 6.8 % (0-10); NRBC Flagged by Analyzer 0 % (0-5); Neutrophil # 5.14 X10^3/uL (2.7-7.7); Neutrophil % 59.6 % (47-70); Platelet Count 206 K/mm3 (150-450); RBC Distribution Width CV 15.7 % (11.6-14.6); RBC Distribution Width SD 52.2 fl (35.1-43.9); Red Blood Count 4.08 M/mm3 (4.6-6.2); White Blood Count 8.6 K/mm3 (4.4-11.0)
[2019-12-07 19:19] LABS: ALB/GLOB Ratio 0.8 RATIO (0.9-2.4); AST(SGOT) 52 U/L (15-37); Alanine Aminotransfer ALT/SGPT 40 U/L (16-61); Albumin, Serum 3.6 g/dL (3.2-5.0); Alkaline Phosphatase 135 U/L (45-117); Anion Gap 7 (5-15); BUN 78 mg/dL (7-18); Calcium,Total 8.8 mg/dL (8.5-10.1); Chloride 116 mmol/L (98-107); Creatinine, Serum 3.72 mg/dL (0.70-1.30); EST Glomerular Filtration Rate 18 mL/min (>60); Est Glom Filt Rate - Afr Amer 21 mL/min (>60); Estimated Creatinine Clearance 22.02 ml/min; Globulin 4.3 g/dL (2.2-4.2); Glucose 197 mg/dL (74-106); Potassium 6.9 mmol/L (3.5-5.1); Protein, Total 7.9 g/dL (6.4-8.2); Sodium Level 139 mmol/L (136-145)
[2019-12-07] MEDS: Sodium Polystyrene Sulfonate 15 GM/60 ML UDC 30 GM PO (19:32)
[2019-12-07 19:40] VITALS: PULSE 62; RESP 16
[2019-12-07] MEDS: Albuterol 2.5 MG/3 ML VIAL.NEB. INHALATION (19:40)
--- NOTE | 2019-12-07 19:46 | ED.DCSUM_ITS ---
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 The patient had outpatient labs done last week. He was found to be hyperkalemic. He states that he is been entirely asymptomatic. He denies weakness or shortness of breath. He still makes urine. The patient does have underlying bicarb deficiency due to chronic diarrhea. He is on outpatient replacement. He denies any fevers or chills. He denies any chest pain. Prior similar symptoms: Yes Recent Illness/Hospitalization: No Past Medical History - Allergies and Home Meds Allergies/Adverse Reactions: Allergies No Known Allergies Allergy (Verified 12/07/19 18:07) Primary Care Physician: Jonathan Baptiste DO [Primary Care Provider] - Prior records reviewed: Yes Past Medical History: - - COPD, hypertension, hyperlipidemia, coronary vascular disease, chronic kidney disease Surgical History: angioplasty - stent x2 2003, - - rt lung thoracotomy, lobectomy 2009 for benign tumor Smoking Status: Current every day smoker - Family History Maternal Family History: Family History (Last Reviewed 09/30/19 @ 15:[address] Danis Loza MD) Father Leukemia Mother COPD (chronic obstructive pulmonary disease) Family History: Reports: COPD Paternal Family History: Family History (Last Reviewed 09/30/19 @ 15:[address] Danis Loza MD) Father Leukemia Mother COPD (chronic obstructive pulmonary disease) Family History: Reports: Cancer - leukemia, Hypertension Review of Systems General: Denies: Chills, Fever, Sweats Eyes: Denies: Visual changes - bilaterally, Diplopia ENT: Denies: Rhinorrhea, Sore throat Cardiovascular: Denies: Chest pain, Palpitations Respiratory: Denies: Dyspnea, Cough, Dyspnea on exertion Gastrointestinal: Denies: Abdominal pain, Nausea, Vomiting, Diarrhea, Melena, Hematochezia Genitourinary: Denies: Dysuria, Hematuria, Frequency Musculoskeletal: Denies: Back pain, Extremity Pain Skin: Denies: Rash, Wounds Neurological: Denies: Headache, Weakness, Numbness Physical Exam Vital Signs/Narrative: Vital Signs Temp Pulse Resp BP Pulse Ox 12/07/19 18:07 97.6 F L 66 15 148/73 H 98 Inital Vital Signs reviewed: Yes General: Well nourished, Well developed, No Acute Distress Head: Normocephalic, Atraumatic Eyes: Perrl, EOMI ENT: Moist mucous membranes, No rhinorrhea Neck: Supple, Nontender Cardiovascular: Regular rate, Regular rhythm, No murmurs Respiratory: No distress, CTA bilaterally, Chest nontender Abdomen: Soft, Nontender, Nondistended, Normal bowel sounds Back: Nontender, Normal Inspection Extremities: Nontender, No edema Skin: Normal color, No rash Neurological: Alert, Oriented x3, Cranial nerves II-XII grossly intact, Normal Strength, Normal Sensation Psychological: Normal affect, Normal Mood Diagnostic/Tx/Re-eval - Rhythm Strip Rhythm Strip: Sinus Rhythm Rate: 80 Ectopy: None - EKG Initial EKG Interpretation: Sinus Rhythm, Non-Specific ST Changes Prior: Unchanged - Medical Decision Making The patient presents with reported hyperkalemia. His EKG shows some subtle T wave changes, but is improved from the last time that he was significantly hyperkalemic. Metabolic work-up was pursued. The patient was found to have potassium of 6.9. He was started immediately on treatment. I did discuss this with Dr. Magana. He will also be started on a continuous bicarb infusion. Given his significant hyperkalemia, the patient will be admitted to a monitored unit. He was discussed with the hospitalist who agrees with plan of care. Impression 1. Hyperkalemia ED Disposition - Plan for ED Patient: Referrals: Jonathan Baptiste DO [Primary Care Provider] -
[2019-12-07] MEDS: Dextrose 50%-Water 25 GM/50 ML DISP.SYRIN IV (20:27)
[2019-12-07] MEDS: Insulin Lispro 5 UNIT in Syringe 0 ML 3 UNIT IV (20:30)
[2019-12-07] MEDS: Calcium Gluconate 1 GM/10 ML Vial IV (20:31)
[2019-12-07 20:34] VITALS: BP 167/75; PULSE 69; RESP 16; TEMP 36.9
[2019-12-07] MEDS: Sodium Bicarbonate 8.4% 50 ML Syringe 50 MEQ IV (20:36)
--- NOTE | 2019-12-07 20:57 | HP.PCM_ITS ---
History of Present Illness Date of Admission: 12/07/19 Chief Complaint: Abnormal labs The patient is a 63 year old M with a PMH as below who presents to the hospital with abnormal labs. He was called by his linter tender to come to the hospital because of an elevated potassium. He denies any symptoms, no chest pain no lightheadedness no dizziness no palpitations. Does have a history of chronic renal failure with creatinines generally in the 2-3 range recently, he used to be over 5 for pretty much all of 2018. Today in the ER he is 3.72 with an elevated potassium. He was given insulin and glucose, as well as Kayexalate and started on a bicarb drip per the orders of his linter tender. Past Medical History Past Medical History (Chronic Problems): Chronic Problems (Last Reviewed 09/30/19 @ 15:[address] Danis Loza MD) Atherosclerosis of coronary artery of [place] heart without angina pectoris (Chronic) Paroxysmal atrial fibrillation (Chronic) Essential (primary) hypertension (Chronic) Hyperlipidemia (Chronic) Peripheral vascular disease (Chronic) LADARIUS (obstructive sleep apnea) (Chronic) Stage 3 severe COPD by GOLD classification (Chronic) FEV1 37% predicted Noncompliance with CPAP treatment (Chronic) Nocturnal hypoxia (Chronic) Acute renal failure superimposed on stage 4 chronic kidney disease (Chronic) Anemia of chronic renal failure (Chronic) Colon cancer (Chronic) Medical History: Medical History (Last Reviewed 09/30/19 @ 15:[address] Danis Loza MD) Atherosclerosis of coronary artery of [place] heart without angina pectoris (Chronic) I25.10 NSTEMI (non-ST elevated myocardial infarction) (Resolved) Onset Date: 07/2018 I21.4 04/2017, 07/2018 NSVT (nonsustained ventricular tachycardia) (Resolved) I47.2 Paroxysmal atrial fibrillation (Chronic) I48.0 Essential (primary) hypertension (Chronic) I10 Hyperlipidemia (Chronic) E78.5 Peripheral vascular disease (Chronic) I73.9 LADARIUS (obstructive sleep apnea) (Chronic) G47.33 Stage 3 severe COPD by GOLD classification (Chronic) J44.9 FEV1 37% predicted Noncompliance with CPAP treatment (Chronic) Z91.14 Nocturnal hypoxia (Chronic) G47.34 Acute renal failure superimposed on stage 4 chronic kidney disease (Chronic) N17.9, N18.4 Anemia of chronic renal failure (Chronic) N18.9, D63.1 Colon cancer (Chronic) C18.9 Acute renal failure superimposed on stage 3 chronic kidney disease N17.9, N18.3 C. difficile colitis A04.72 Cholelithiasis K80.20 Chronic hypoxemic respiratory failure J96.11 2-3 LPM chronically Colon cancer C18.9 had surgery with no chemo or radiation at [facility] fall 2017 Diabetes mellitus type 2 in obese E11.69, E66.9 Gastroenteritis K52.9 Gout M10.9 Heme + stool R19.5 Hemorrhoids K64.9 Hyperkalemia, diminished renal excretion E87.5 Hyponatremia E87.1 Increased PTH level E34.9 secondary to CRF stage4 Infectious encephalopathy G93.49, B99.9 Iron deficiency anemia D50.9 Low vitamin D level E55.9 Metabolic acidosis E87.2 Metabolic acidosis E87.2 Nicotine dependence, cigarettes, in remission F17.211 Pseudomembranous enterocolitis A04.72 Radiculopathy affecting upper extremity M54.10 Septic shock A41.9, R65.21 Uremia of renal origin N19 Acute exacerbation of chronic obstructive pulmonary disease (COPD) (Resolved) J44.1 Acute respiratory failure with hypoxemia (Resolved) J96.01 Hypotension, unspecified I95.9 Influenza B (Resolved) J10.1 Lower GI bleed (Resolved) K92.2 Severe sepsis (Resolved) A41.9, R65.20 Severe sepsis A41.9, R65.20 Streptococcal pneumonia (Resolved) J15.4 Urinary retention due to benign prostatic hyperplasia (Resolved) N40.1, R33.8 NSAID long-term use (Inactive) Z79.1 Non-STEMI (non-ST elevated myocardial infarction) (Inactive) I21.4 Allergies No Known Allergies Allergy (Verified 12/07/19 18:07) Home Medications: Ambulatory Orders Medication Instructions Recorded Nitroglycerin (INPATIENT USE) 0.4 mg SUBLINGUAL Q5M PRN 05/14/17 [Nitrostat] Oxycodone [Oxyir] 5 mg PO BID PRN PRN 05/14/17 Allopurinol [Zyloprim] 300 mg PO DAILY 09/15/17 Finasteride [Proscar] 5 mg PO DAILY 07/02/18 Isosorbide Mononitrate [Imdur] 30 mg PO DAILY 09/15/17 Metoprolol(XL)Succ [Toprol Xl 50 mg PO DAILY 09/15/17 (Beta Vanesa)] Albuterol Inhaler [Ventolin Hfa] 1 - 2 puff INHALATION Q4H PRN PRN 05/12/18 Diazepam [Valium] 5 mg PO DAILY PRN PRN 05/12/18 Insulin Aspart [Novolog Flexpen] 5 units SUBCUT TIDCM #0 05/16/18 Clopidogrel Bisulfate [Clopidogrel] 75 mg PO DAILY 08/04/18 Aspirin E.C. [Ecotrin] 81 mg PO DAILY@0800 09/07/18 cholecalciferol (vitamin D3) 50 50 mcg PO DAILY #90 cap 02/19/19 mcg (2,000 unit) capsule cilostazol 100 mg tablet 100 mg PO QHS tab 09/30/19 escitalopram oxalate 20 mg tablet 20 mg PO DAILY 09/30/19 ferrous sulfate 325 mg (65 mg 325 mg PO DAILY tab 09/30/19 iron) tablet ipratropium 0.5 mg-albuterol 3 mg 3 ml INHALATION Q4H PRN ml 09/30/19 (2.5 mg base)/3 mL nebulization soln loperamide 2 mg capsule 2 mg PO Q4H PRN PRN cap 09/30/19 rosuvastatin 10 mg tablet 10 mg PO DAILY #90 tab 09/30/19 Amiodarone HCl 200 mg PO DAILY 12/07/19 Amlodipine Besylate [Norvasc] 5 mg PO DAILY 12/07/19 Insulin Degludec [Tresiba 30 units SQ BID 12/07/19 Flextouch U-200] Levothyroxine Sodium [Synthroid] 88 mcg PO DAILY 12/07/19 Pantoprazole Sodium [Protonix] 40 mg PO DAILY 12/07/19 Sodium Bicarbonate 650 mg PO TID 12/07/19 Surgical History: Surgical History (Last Reviewed 09/30/19 @ 15:[address] Danis Loza MD) History of coronary artery stent placement (Resolved) Onset Date: 05/18/03 Z95.5 [id number] LAD w/ 3.0 x 28 mm Cypher and 3.0 x 18 mm Cypher, NIKHIL-OM! w/ 2.0 x 16 mm Express Stent 05/18/2003 Status post colon resection Z90.49 subtotal for colon CA in the fall of 2017 at [facility] H/O colectomy Z90.49 05/18 of colon, 12/2017, Dr. Alvarado with [facility] H/O pneumonectomy Z98.890, Z90.2 Right LL lobectomy due to benign tumor 2009 History of left heart catheterization Onset Date: 11/27/09 Z98.890 patent LAD and OM1 stents negative IVUS-prox LCx Status post insertion of dialysis catheter Onset Date: 07/2018 Z95.828, Z99.2 Surgical History: angioplasty - stent x2 2003, - - rt lung thoracotomy, lobectomy 2009 for benign tumor Psychiatric History: No pertinent psych hx Smoking Status: Current every day smoker Tobacco Use: Cigarettes Alcohol: None Drugs: None - *Family History Maternal Family History: Family History (Last Reviewed 09/30/19 @ 15:[address] Danis Loza MD) Father Leukemia Mother COPD (chronic obstructive pulmonary disease) History Items: COPD Paternal Family History: Family History (Last Reviewed 09/30/19 @ 15:[address] Danis Loza MD) Father Leukemia Mother COPD (chronic obstructive pulmonary disease) History Items: Cancer - leukemia, Hypertension Review of Systems Constitutional: Denies: Chills, Fever, Weight Change HEENT: Denies: Head Aches, Sinus Congestion, Sinus Drainage Cardiovascular: Denies: Chest Pain, Palpitations Respiratory: Denies: Cough, Shortness of breath at rest, Sputum production Gastrointestinal: Denies: Abdominal Pain, Nausea, Vomiting Genitourinary: Denies: Dysuria Musculoskeletal: Denies: Joint Pain, Joint Tenderness Skin: Denies: Rash, Wounds Neurological: Denies: Numbness, Tingling, Focal weakness Psychiatric: Denies: Anxiety, Depression Hematologic/ Lymphatic: Denies: Easy Bruising, Easy Bleeding VTE Information - Inpt Only VTE Present on Admission: No - Physical Exam Vitals/I&O's: Vital Signs Temp Pulse Resp BP Pulse Ox 98.4 F 69 16 167/75 H 98 12/07/19 20:34 12/07/19 20:34 12/07/19 20:34 12/07/19 20:34 09/22/20 18:07 Oxygen Delivery Method Room Air Weight: 218 lb 4.122 oz Body Mass Index (BMI) 29.6 Intake and Output for Last 24 Hours 12/05/19 12/06/19 12/07/19 23:59 23:59 23:59 Intake Total 0.05 / 0.05 Balance 0.05 / 0.05 General: Alert, Oriented x3, Cooperative, No apparent distress HEENT: Atraumatic, PERRLA, EOMI, Normocephalic Oral: Moist Mucosa Neck: Supple, No JVD Lungs: Clear to auscultation, Normal air movement, No rhonchi, No wheeze, No rales Cardiovascular: Regular rate, Regular Rhythm, Normal S1, Normal S2, No murmurs Abdomen: Soft, Non Tender, Non-Distended, No Hepato-splenomegaly Extremities: No edema, Capillary Refill Less than 3 Seconds Skin: No rashes, No breakdown Neurological: Neuro grossly intact, Sensory exam intact to light touch and pain Psych/Mental Status: Normal Affect, Appropriate Laboratory Results 12/07/19 18:25: WBC 8.6, RBC 4.08 L, Hgb 12.1 L, Hct 37.5 L, MCV 91.9, MCH 29.7, MCHC 32.3, RDW Std Deviation 52.2 H, RDW Coeff of Joana 15.7 H, Plt Count 206, MPV 12.0, Immature Gran % (Auto) 1.400 H, Neut % (Auto) 59.6, Lymph % (Auto) 24.1, [place] % (Auto) 6.8, Eos % (Auto) 7.3 H, Baso % (Auto) 0.8, Absolute Neuts (auto) 5.1, Absolute Lymphs (auto) 2.08, Nucleated RBC % 0 12/07/19 18:25: Sodium 139, Potassium 6.9 H*, Chloride 116 H, Carbon Dioxide 16.0 L, Anion Gap 7, BUN 78 H, Creatinine 3.72 H, Estim Creat Clear Calc 22.02, Est GFR (MDRD) Af Amer 21 L, Est GFR (MDRD) Non-Af 18 L, BUN/Creatinine Ratio 21.0 H, Glucose 197 H, Calcium 8.8, Total Bilirubin 0.30, AST 52 H, ALT 40, Alkaline Phosphatase 135 H, Total Protein 7.9, Albumin 3.6, Globulin 4.3 H, Albumin/Globulin Ratio 0.8 L Current Medications Sodium Bicarbonate 150 meq/ (Dextrose) 1,150 mls @ 150 mls/hr IV .[id number] [facility] Assessment/Plan All Active Problems (Last Reviewed 09/30/19 @ 15:[address] Danis Loza MD) Arm numbness left (Acute) History of coronary artery stent placement (Resolved 05/18/03) NSTEMI (non-ST elevated myocardial infarction) (Resolved 07/2018) NSVT (nonsustained ventricular tachycardia) (Resolved) Acute exacerbation of chronic obstructive pulmonary disease (COPD) (Resolved) Acute respiratory failure with hypoxemia (Resolved) Benign neoplasm of right lung (Resolved) Influenza B (Resolved) Lower GI bleed (Resolved) Severe sepsis (Resolved) Streptococcal pneumonia (Resolved) Urinary retention due to benign prostatic hyperplasia (Resolved) 1. Hyperkalemia in the setting of chronic renal failure and chronic diarrhea -Consult nephrology continue with allopurinol -Continue with Imodium and can resume his p.o. sodium bicarb once his drip is finished -Otherwise he feels fine and has no issues or complaints 2. Paroxysmal A. fib/HTN/HLD/peripheral artery disease -Continue with amiodarone, Norvasc, aspirin, Plavix, Imdur, metoprolol, Crestor -Blood pressure and heart rate are stable we will continue to monitor -Continue with cilostazol 3. IDDM 2 -Continue with his home insulin dosing -Add sliding scale insulin and Accu-Cheks AC at bedtime 4. Hypothyroidism -Stable -Continue with Synthroid 5. Anxiety/depression -Stable -Continue with Valium and Lexapro 6. GERD -Stable -Continue with PPI 7. Gout -Stable -Continue with allopurinol DVT: Heparin Inpatient E&M: 98461 Init Hosp L3
[2019-12-07 21:51] VITALS: BP 143/75; PULSE 70; RESP 18; TEMP 36.9; O2SAT 98
[2019-12-07 21:55] VITALS: BMI 29.2
[2019-12-07 21:57] VITALS: BMI 29.3
[2019-12-07 22:16] LABS: Bedside Glucose 183 mg/dL (70-110)
[2019-12-07] MEDS: Insulin Lispro 100 UNIT/ML INSULN.PEN SC (22:17)
[2019-12-07] MEDS: Heparin Injection (Vial) 5,000 UNIT/ML VIAL 5000 UNIT SC (22:17)
[2019-12-07 22:30] VITALS: PULSE 75
[2019-12-07 23:44] VITALS: PULSE 72
[2019-12-08 03:01] VITALS: PULSE 71
[2019-12-08 03:17] VITALS: BP 138/74; PULSE 68; RESP 18; TEMP 36.2; O2SAT 94
[2019-12-08] MEDS: Levothyroxine 88 MCG Tablet PO (05:33)
[2019-12-08 05:58] LABS: Absolute Lymphocyte Count 1.86 X10^3/uL (0.83-4.51); Absolute Neutrophil Count 3.9 X10^3/uL (2.0-7.7); Basophil# 0.04 X10^3/uL; Basophil% 0.6 % (0-1); Eosinophil# 0.51 X10^3/uL; Eosinophils% 7.3 % (0-5); Hematocrit 32.8 % (40-54); Hemoglobin 10.8 g/dL (13.0-16.5); Lymphocyte # 1.86 X10^3/ul (4.0); Lymphocyte % 26.8 % (19-41); Mean Corp Hgb Conc 32.9 g/dL (32-36); Mean Corpuscular Hgb 30.2 pg (27.0-32.0); Mean Corpuscular Volume 91.6 fL (80-94); Mean Platelet Vol. 12.4 fl (6.2-12.0); Monocyte# 0.54 X10^3/uL; Monocyte% 7.8 % (0-10); NRBC Flagged by Analyzer 0 % (0-5); Neutrophil # 3.94 X10^3/uL (2.7-7.7); Neutrophil % 56.6 % (47-70); Platelet Count 188 K/mm3 (150-450); RBC Distribution Width CV 15.5 % (11.6-14.6); RBC Distribution Width SD 51.7 fl (35.1-43.9); Red Blood Count 3.58 M/mm3 (4.6-6.2)
[2019-12-08 06:24] LABS: Anion Gap 5 (5-15); BUN 70 mg/dL (7-18); BUN/Creat Ratio 21.7 RATIO (10-20); Calcium,Total 8.6 mg/dL (8.5-10.1); Chloride 112 mmol/L (98-107); Creatinine, Serum 3.22 mg/dL (0.70-1.30); EST Glomerular Filtration Rate 21 mL/min (>60); Est Glom Filt Rate - Afr Amer 25 mL/min (>60); Estimated Creatinine Clearance 25.44 ml/min; Glucose 254 mg/dL (74-106); Potassium 4.8 mmol/L (3.5-5.1); Sodium Level 140 mmol/L (136-145)
[2019-12-08 07:38] VITALS: PULSE 63
[2019-12-08 08:10] VITALS: BP 121/78; PULSE 65; RESP 16; TEMP 36.4; O2SAT 98
[2019-12-08] MEDS: Aspirin E.C. 81 MG Tablet PO (08:23)
[2019-12-08] MEDS: Amiodarone 200 MG Tablet PO (08:23)
[2019-12-08] MEDS: Allopurinol 300 MG Tablet PO (08:23)
[2019-12-08] MEDS: Insulin Lispro 100 UNIT/ML INSULN.PEN SC ×4 (08:24→12:19)
[2019-12-08 08:35] LABS: Bedside Glucose 258 mg/dL (70-110)
--- NOTE | 2019-12-08 09:07 | PN_ITS ---
Progress Note Patient called multiple times as outpt to go to ER for elevated potassium and worsening renal fxn with Cr 4.49 on 11/29/19. He did not listen to his phone messages left by the office or his emergency contact phone was not in service. Also called his PCP to send message to pt as well. He finally called back our office yesterday and was instructed to go to ER. Creatinine and potassium improved with bicarbonate replacement and IV fluids this morning. Discussed with ER physician last night on management. Has chronic diarrhea and suppose to cont inue with bicarbonate tablets at home with lomotil. Pt asymptomatic with high potassium on admission. Ok to dc to home from renal standpoint. Chart reviewed. Discussed with hospitalist. Pt has appt in office Dec 20 at 11am STROKE Vital Signs/Narrative: Vital Signs Temp Pulse Resp BP Pulse Ox 12/08/19 08:10 97.5 F L 65 16 121/78 H 98 12/08/19 07:38 63
[2019-12-08 10:19] VITALS: PULSE 70
[2019-12-08] MEDS: Metoprolol(XL)Succ 50 MG Tablet PO (10:19)
[2019-12-08] MEDS: Escitalopram Oxalate 20 MG Tablet PO (10:19)
[2019-12-08] MEDS: Ferrous Sulfate 325 MG Tablet PO (10:19)
[2019-12-08] MEDS: amLODIPine 5 MG Tablet PO (10:19)
[2019-12-08] MEDS: Heparin Injection (Vial) 5,000 UNIT/ML VIAL 5000 UNIT SC (10:19)
[2019-12-08] MEDS: Finasteride 5 MG Tablet PO (10:19)
[2019-12-08] MEDS: Clopidogrel Bisulfate 75 MG Tablet PO (10:19)
[2019-12-08] MEDS: Isosorbide Mononitrate 30 MG Tablet PO (10:19)
[2019-12-08] MEDS: Pantoprazole Sodium 40 MG Tablet PO (10:19)
--- NOTE | 2019-12-08 11:02 | DCINST_ITS ---
You will use the following diet at home:: Renal (restricted protein/sodium) Your food should be the consistency of: Regular Your liquids should be the consistency of: Regular/Thin Discharge Activity: Return to Normal Activity Call your doctor if you observe: Shortness of breath, Swelling in the ankles, Chest pain Additional Instructions: You need to have a BMP (lab) checked within a week. Call your Family medicine doctor to arrange this. At follow up with nephrology, ask if you are a candidate for kidney transplant. Allergies/Adverse Reactions: Allergies No Known Allergies Allergy (Verified 12/07/19 18:07) Medications to take at Discharge Nitroglycerin (INPATIENT USE) [Nitrostat] 0.4 mg SUBLINGUAL Q5M PRN 05/14/17 Oxycodone [Oxyir] 5 mg PO BID PRN PRN 05/14/17 Allopurinol [Zyloprim] 300 mg PO DAILY 09/15/17 Finasteride [Proscar] 5 mg PO DAILY 09/15/17 Isosorbide Mononitrate [Imdur] 30 mg PO DAILY 09/15/17 Metoprolol(XL)Succ [Toprol Xl (Beta Vanesa)] 50 mg PO DAILY 09/15/17 Albuterol Inhaler [Ventolin Hfa] 1 - 2 puff INHALATION Q4H PRN PRN 05/12/18 Diazepam [Valium] 5 mg PO DAILY PRN PRN 05/12/18 Insulin Aspart [Novolog Flexpen] 5 units SUBCUT TIDCM #0 05/16/18 Clopidogrel Bisulfate [Clopidogrel] 75 mg PO DAILY 08/04/18 Aspirin E.C. [Ecotrin] 81 mg PO DAILY@0800 09/07/18 cholecalciferol (vitamin D3) 50 mcg (2,000 unit) capsule 50 mcg PO DAILY #90 cap 02/19/19 cilostazol 100 mg tablet 100 mg PO QHS tab 09/30/19 escitalopram oxalate 20 mg tablet 20 mg PO DAILY 09/30/19 ferrous sulfate 325 mg (65 mg iron) tablet 325 mg PO DAILY tab 09/30/19 ipratropium 0.5 mg-albuterol 3 mg (2.5 mg base)/3 mL nebulization soln 3 ml INHALATION Q4H PRN ml 09/30/19 loperamide 2 mg capsule 2 mg PO Q4H PRN PRN cap 09/30/19 rosuvastatin 10 mg tablet 10 mg PO DAILY #90 tab 09/30/19 Amiodarone HCl 200 mg PO DAILY 12/07/19 Amlodipine Besylate [Norvasc] 5 mg PO DAILY 12/07/19 Levothyroxine Sodium [Synthroid] 88 mcg PO DAILY 12/07/19 Pantoprazole Sodium [Protonix] 40 mg PO DAILY 12/07/19 Sodium Bicarbonate 650 mg PO TID 12/07/19 Insulin Degludec [Tresiba Flextouch U-200] 32 units SQ BID #0 12/08/19 Primary Care Physician: Jonathan Baptiste DO [Primary Care Provider] - Please follow up with your Primary Care Physician in: 3-5 days Test Results: Test results from this visit will be discussed in further detail at your follow- up appointment, if applicable. Please Follow Up With: Daysi Magana DO When: December 21, 2019 Proposed Discharge Date: 12/08/19
--- NOTE | 2019-12-08 11:10 | CASEMGMT ---
DEVEN SAAVEDRA assessment: Face to Face with patient for initial transition planning/care coordination assessment. DEVEN SAAVEDRA introduced self and role at [facility], pt voices understanding and consents to assessment at this time. Pt is sitting up in chair in no distress at this time. Pt is A/Ox4 at this time and answers all questions appropriately at this time. Care providers, pharmacy, and demographics verified at this time. Presentation: Pt sent to ED by for elev potassium Admitting dx: Hyperkalemia PCP: Emile Specialists: leelee Magana [facility]acy: [facility] Insurance: [facility] A/B Prescription Benefit: [employer] Living Will/HPOA: Pt states does not have LW/HPOA and declines AD info at this time. Pt states that he has all paperwork at home but has not completed yet and would like to continue to look over. LNOK: Eva Romero, ; Vita Evans, sister Living Arrangements: Pt states lives with in mobile home with 4 bilateral rail steps in and states no concerns at home at this time. Pt states is independent with ADL's. Transportation: Pt states drives self and states no transportation concerns at this time. DME/HHC: Pt states has the following DME: cane, hospital bed, walker, rails, grab bars, shower chair, and states does have a portable O2 tank that he uses, 'if needed.' Pt states no need for any further DME at this time. Pt states no hx of HHC or SNF in the past and pt states no need for any at this time. Pt states no concerns with going home at time of discharge. Pt states is on disability. Pt states smokes 4-5 cigarettes daily and does not drink ETOH. Pt states no further concerns/needs at this time. CM to follow for any further discharge planning/needs. Advised pt to ask for CM if any further questions/concerns/needs arise, voices understanding. Pt Goal: Home Plan: [place] DEVEN SAAVEDRA
--- NOTE | 2019-12-08 12:02 | PHA.DC.MR ---
Pharmacy Service has performed discharge medication reconciliation for this patient. The patient's discharge medication list was reviewed for discrepancies and discrepancies were resolved. Home Medications Nitroglycerin (INPATIENT USE) [Nitrostat] 0.4 mg SUBLINGUAL Q5M PRN 05/14/17 Oxycodone [Oxyir] 5 mg PO BID PRN PRN 05/14/17 Allopurinol [Zyloprim] 300 mg PO DAILY 09/15/17 Finasteride [Proscar] 5 mg PO DAILY 09/15/17 Isosorbide Mononitrate [Imdur] 30 mg PO DAILY 09/15/17 Metoprolol(XL)Succ [Toprol Xl (Beta Vanesa)] 50 mg PO DAILY 09/15/17 Albuterol Inhaler [Ventolin Hfa] 1 - 2 puff INHALATION Q4H PRN PRN 05/12/18 Diazepam [Valium] 5 mg PO DAILY PRN PRN 05/12/18 Insulin Aspart [Novolog Flexpen] 5 units SUBCUT TIDCM #0 05/16/18 Clopidogrel Bisulfate [Clopidogrel] 75 mg PO DAILY 08/04/18 Aspirin E.C. [Ecotrin] 81 mg PO DAILY@0800 09/07/18 cholecalciferol (vitamin D3) 50 mcg (2,000 unit) capsule 50 mcg PO DAILY #90 cap 02/19/19 cilostazol 100 mg tablet 100 mg PO QHS tab 09/30/19 escitalopram oxalate 20 mg tablet 20 mg PO DAILY 09/30/19 ferrous sulfate 325 mg (65 mg iron) tablet 325 mg PO DAILY tab 09/30/19 ipratropium 0.5 mg-albuterol 3 mg (2.5 mg base)/3 mL nebulization soln 3 ml INHALATION Q4H PRN ml 09/30/19 loperamide 2 mg capsule 2 mg PO Q4H PRN PRN cap 09/30/19 rosuvastatin 10 mg tablet 10 mg PO DAILY #90 tab 09/30/19 Amiodarone HCl 200 mg PO DAILY 12/07/19 Amlodipine Besylate [Norvasc] 5 mg PO DAILY 12/07/19 Levothyroxine Sodium [Synthroid] 88 mcg PO DAILY 12/07/19 Pantoprazole Sodium [Protonix] 40 mg PO DAILY 12/07/19 Sodium Bicarbonate 650 mg PO TID 12/07/19 Insulin Degludec [Tresiba Flextouch U-200] 32 units SQ BID #0 12/08/19
[2019-12-08 12:26] LABS: Bedside Glucose 264 mg/dL (70-110)
--- NOTE | 2019-12-08 14:05 | DS.PCM_ITS ---
Discharge Date and Diagnosis Date of Admission: 12/07/19 Date of Discharge: 12/08/19 - Primary Discharge Diagnosis Acute Problems: hyperkalemia CKDIV Uncontrolled DMt2 - Secondary Discharge Diagnosis Chronic Problems: Chronic Problems (Last Reviewed 09/30/19 @ 15:[address] Danis Loza MD) Atherosclerosis of coronary artery of [place] heart without angina pectoris (Chronic) Paroxysmal atrial fibrillation (Chronic) Essential (primary) hypertension (Chronic) Hyperlipidemia (Chronic) Peripheral vascular disease (Chronic) LADARIUS (obstructive sleep apnea) (Chronic) Stage 3 severe COPD by GOLD classification (Chronic) FEV1 37% predicted Noncompliance with CPAP treatment (Chronic) Nocturnal hypoxia (Chronic) Acute renal failure superimposed on stage 4 chronic kidney disease (Chronic) Anemia of chronic renal failure (Chronic) Colon cancer (Chronic) Hospital Course and Treatment Consults: [place] - nephrology Operations: None Procedures: None Summary of Care Provided: Hospital course: The patient is a 63 year old M with past medical history of CKD stage IV following Dr. Magana as an outpatient, otherwise as above who presented to the emergency room with abnormal labs. He was found to have hyperkalemia on outpatient labs and was advised by his oxygraph operator to come to the ER. He denied new symptoms and felt in his normal state of health. Patient's BUN and creatinine were elevated but were only mildly worse than baseline. The patient has had recurrent episodes of hyperkalemia in the past. He was treated in the ER with calcium gluconate, albuterol, insulin, D50, Kayexalate. He was placed in the PCU overnight. In the morning he had no symptoms and his potassium had normalized. Nephrology recommended he be discharged and follow-up in the office. Patient was advised to talk to his primary care physician to get a BMP this week and to arrange close follow up within a week. He will also follow-up with nephrology, he has a prior appointment on December 20. Patient's blood sugars are uncontrolled and his insulin was adjusted while here. He will require ongoing close monitoring of his blood sugars and further adjustment of his insulin therapy per his primary care. This patient was seen by Jono Braxton PA-C under the supervision of Doctor Mckenzie[]. [] - Physical Exam Vitals/I&O's: Vital Signs Temp Pulse Resp BP Pulse Ox 97.5 F L 70 16 121/78 H 98 12/08/19 08:10 12/08/19 10:19 12/08/19 08:10 12/08/19 08:10 12/08/19 08:10 Oxygen Delivery Method Room Air Weight: 216 lb Body Mass Index (BMI) 29.2 Intake and Output for Last 24 Hours 12/06/19 12/07/19 12/08/19 23:59 23:59 23:59 Intake Total 0.05 / 0.05 2285.0 / 2285.0 Balance 0.05 / 0.05 2285.0 / 2285.0 General: Alert, Oriented x3, Cooperative HEENT: Atraumatic, PERRLA, EOMI, Normocephalic Neck: Supple, No JVD, Negative Carotid Bruits Lungs: Clear to auscultation, Normal air movement Cardiovascular: Regular rate, No murmurs Abdomen: Bowel Sounds Present, Soft, Non Tender Extremities: No edema, Capillary Refill Less than 3 Seconds Skin: No rashes, No breakdown Musculoskeletal: No Tenderness to Palpation of Joints or Extremities Neurological: Cranial nerves II-XII grossly intact Psych/Mental Status: Normal Affect, Appropriate, Alert and oriented to time, place, person, mood and affect Laboratory Results 12/07/19 18:25: WBC 8.6, RBC 4.08 L, Hgb 12.1 L, Hct 37.5 L, MCV 91.9, MCH 29.7, MCHC 32.3, RDW Std Deviation 52.2 H, RDW Coeff of Joana 15.7 H, Plt Count 206, MPV 12.0, Immature Gran % (Auto) 1.400 H, Neut % (Auto) 59.6, Lymph % (Auto) 24.1, [place] % (Auto) 6.8, Eos % (Auto) 7.3 H, Baso % (Auto) 0.8, Absolute Neuts (auto) 5.1, Absolute Lymphs (auto) 2.08, Nucleated RBC % 0 12/07/19 18:25: Sodium 139, Potassium 6.9 H*, Chloride 116 H, Carbon Dioxide 16.0 L, Anion Gap 7, BUN 78 H, Creatinine 3.72 H, Estim Creat Clear Calc 22.02, Est GFR (MDRD) Af Amer 21 L, Est GFR (MDRD) Non-Af 18 L, BUN/Creatinine Ratio 21.0 H, Glucose 197 H, Calcium 8.8, Total Bilirubin 0.30, AST 52 H, ALT 40, Alkaline Phosphatase 135 H, Total Protein 7.9, Albumin 3.6, Globulin 4.3 H, Albumin/Globulin Ratio 0.8 L 12/07/19 21:54: POC Glucose 183 H 12/08/19 05:30: WBC 7.0, RBC 3.58 L, Hgb 10.8 L, Hct 32.8 L, MCV 91.6, MCH 30.2, MCHC 32.9, RDW Std Deviation 51.7 H, RDW Coeff of Joana 15.5 H, Plt Count 188, MPV 12.4 H, Immature Gran % (Auto) 0.900, Neut % (Auto) 56.6, Lymph % (Auto) 26.8, [place] % (Auto) 7.8, Eos % (Auto) 7.3 H, Baso % (Auto) 0.6, Absolute Neuts (auto) 3.9, Absolute Lymphs (auto) 1.86, Nucleated RBC % 0 12/08/19 05:30: Sodium 140, Potassium 4.8, Chloride 112 H, Carbon Dioxide 23.0, Anion Gap 5, BUN 70 H, Creatinine 3.22 H, Estim Creat Clear Calc 25.44, Est GFR (MDRD) Af Amer 25 L, Est GFR (MDRD) Non-Af 21 L, BUN/Creatinine Ratio 21.7 H, Glucose 254 H, Calcium 8.6 12/08/19 08:08: POC Glucose 258 H 12/08/19 12:18: POC Glucose 264 H Discharge Diet: Renal Diet Discharge Activity: Return to Normal Activity Call your doctor if you observe: Shortness of breath, Swelling in the ankles, Chest pain Home Medications: Medications to take at Discharge Nitroglycerin (INPATIENT USE) [Nitrostat] 0.4 mg SUBLINGUAL Q5M PRN 05/14/17 Oxycodone [Oxyir] 5 mg PO BID PRN PRN 05/14/17 Allopurinol [Zyloprim] 300 mg PO DAILY 09/15/17 Finasteride [Proscar] 5 mg PO DAILY 09/15/17 Isosorbide Mononitrate [Imdur] 30 mg PO DAILY 09/15/17 Metoprolol(XL)Succ [Toprol Xl (Beta Vanesa)] 50 mg PO DAILY 09/15/17 Albuterol Inhaler [Ventolin Hfa] 1 - 2 puff INHALATION Q4H PRN PRN 05/12/18 Diazepam [Valium] 5 mg PO DAILY PRN PRN 05/12/18 Insulin Aspart [Novolog Flexpen] 5 units SUBCUT TIDCM #0 05/16/18 Clopidogrel Bisulfate [Clopidogrel] 75 mg PO DAILY 08/04/18 Aspirin E.C. [Ecotrin] 81 mg PO DAILY@0800 09/07/18 cholecalciferol (vitamin D3) 50 mcg (2,000 unit) capsule 50 mcg PO DAILY #90 cap 02/19/19 cilostazol 100 mg tablet 100 mg PO QHS tab 09/30/19 escitalopram oxalate 20 mg tablet 20 mg PO DAILY 09/30/19 ferrous sulfate 325 mg (65 mg iron) tablet 325 mg PO DAILY tab 09/30/19 ipratropium 0.5 mg-albuterol 3 mg (2.5 mg base)/3 mL nebulization soln 3 ml INHALATION Q4H PRN ml 09/30/19 loperamide 2 mg capsule 2 mg PO Q4H PRN PRN cap 09/30/19 rosuvastatin 10 mg tablet 10 mg PO DAILY #90 tab 09/30/19 Amiodarone HCl 200 mg PO DAILY 12/07/19 Amlodipine Besylate [Norvasc] 5 mg PO DAILY 12/07/19 Levothyroxine Sodium [Synthroid] 88 mcg PO DAILY 12/07/19 Pantoprazole Sodium [Protonix] 40 mg PO DAILY 12/07/19 Sodium Bicarbonate 650 mg PO TID 12/07/19 Insulin Degludec [Tresiba Flextouch U-200] 32 units SQ BID #0 12/08/19 Primary Care Physician: Jonathan Baptiste DO [Primary Care Provider] - Please follow up with your Primary Care Physician in: 3-5 days Please Follow Up With: Daysi Magana DO When: December 21, 2019 Disposition: Home Minutes spent on discharge:: 35 Patient Condition:: Stable Medical Necessity - Tobacco Use Smoking Status: Current every day smoker Tobacco Use: Cigarettes Meaningful Use Info Meaningful Use Diagnoses (Choose all that apply): None applicable
== END 2019-12-08 13:00 | disposition home or self-care (01) | DRG 641 ==
LOC: ED 18:48 → PCU 20:00
PROVIDERS: Admitting Provider Family Medicine; Emergency Provider Emergency Medicine; PCP Student in an Organized Health Care Education/Training Program; Visit Provider Family Medicine
DX: E87.5 Hyperkalemia (principal); N18.4 Chronic kidney disease, stage 4 (severe); J96.11 Chronic respiratory failure with hypoxia; E11.22 Type 2 diabetes mellitus with diabetic chronic kidney disease; I12.9 Hypertensive chronic kidney disease with stage 1 through stage 4 chronic kidney disease, or unspecified chronic kidney disease; E78.5 Hyperlipidemia, unspecified; I25.10 Atherosclerotic heart disease of native coronary artery without angina pectoris; I48.0 Paroxysmal atrial fibrillation; E11.51 Type 2 diabetes mellitus with diabetic peripheral angiopathy without gangrene; Z79.4 Long term (current) use of insulin; Z79.82 Long term (current) use of aspirin; Z79.899 Other long term (current) drug therapy; Z79.51 Long term (current) use of inhaled steroids; F17.210 Nicotine dependence, cigarettes, uncomplicated; K52.9 Noninfective gastroenteritis and colitis, unspecified; E03.9 Hypothyroidism, unspecified; F32.9 Major depressive disorder, single episode, unspecified; F41.9 Anxiety disorder, unspecified; K21.9 Gastro-esophageal reflux disease without esophagitis; M10.9 Gout, unspecified; G47.33 Obstructive sleep apnea (adult) (pediatric); Z85.038 Personal history of other malignant neoplasm of large intestine
CPT/HCPCS: 36415; 80048; 80053; 82962; 85025; 93005; 94640; 99285; 99406; A4216; J0610

== ENCOUNTER → 2019-12-20 | Outpatient (CLI) | payer MEDICARE, SELFPAY ==
[2019-12-07 21:55] VITALS: BMI 29.2
[2019-12-20 11:11] LABS: Hemoglobin 11.1 g/dL (13.0-16.5); Mean Corp Hgb Conc 30.8 g/dL (32-36); Mean Corpuscular Hgb 29.3 pg (27.0-32.0); Mean Platelet Vol. 12.4 fl (6.2-12.0); Platelet Count 271 K/mm3 (150-450); RBC Distribution Width CV 14.6 % (11.6-14.6); RBC Distribution Width SD 50.9 fl (35.1-43.9); Red Blood Count 3.79 M/mm3 (4.6-6.2); White Blood Count 7.5 K/mm3 (4.4-11.0)
[2019-12-20 12:19] LABS: Albumin, Serum 3.2 g/dL (3.2-5.0); BUN 66 mg/dL (7-18); BUN/Creat Ratio 18.5 RATIO (10-20); Calcium,Total 9.3 mg/dL (8.5-10.1); Chloride 108 mmol/L (98-107); Creatinine, Serum 3.56 mg/dL (0.70-1.30); EST Glomerular Filtration Rate 18 mL/min (>60); Est Glom Filt Rate - Afr Amer 22 mL/min (>60); Glucose 176 mg/dL (74-106); Phosphorus 3.1 mg/dL (2.5-4.9); Potassium 4.8 mmol/L (3.5-5.1); Sodium Level 137 mmol/L (136-145)
[2019-12-22 08:04] LABS: PTHIN 98.6 pg/mL (18.4-80.1)
[2019-12-22 09:39] LABS: Vitamin B12 379 pg/mL (211-911)
== END | disposition home or self-care (01) ==
PROVIDERS: PCP Student in an Organized Health Care Education/Training Program; Referring Provider Internal Medicine Nephrology; Visit Provider Internal Medicine Nephrology
DX: E53.8 Deficiency of other specified B group vitamins (principal); N18.4 Chronic kidney disease, stage 4 (severe)
CPT/HCPCS: 36415; 80069; 82607; 83970; 85027

== ENCOUNTER → 2020-02-16 09:40 | Outpatient (CLI) | payer MEDICARE, SELFPAY ==
[2020-02-16 10:23] LABS: Mean Corp Hgb Conc 30.8 g/dL (32-36); Mean Corpuscular Hgb 28.3 pg (27.0-32.0); Mean Platelet Vol. 12.5 fl (6.2-12.0); Platelet Count 208 K/mm3 (150-450); RBC Distribution Width CV 15.8 % (11.6-14.6); RBC Distribution Width SD 53.1 fl (35.1-43.9); Red Blood Count 4.24 M/mm3 (4.6-6.2); White Blood Count 8.9 K/mm3 (4.4-11.0)
[2020-02-16 10:48] LABS: Hemoglobin A1c 6.9 % (3.8-5.6)
[2020-02-16 11:00] LABS: ALB/GLOB Ratio 0.9 RATIO (0.9-2.4); AST(SGOT) 13 U/L (15-37); Alanine Aminotransfer ALT/SGPT 27 U/L (16-61); Albumin, Serum 3.6 g/dL (3.2-5.0); Alkaline Phosphatase 138 U/L (45-117); Anion Gap 6 (5-15); BUN 64 mg/dL (7-18); BUN/Creat Ratio 19.3 RATIO (10-20); Calcium,Total 9.1 mg/dL (8.5-10.1); Chloride 114 mmol/L (98-107); Cholesterol 164 mg/dL (200); Creatinine, Serum 3.31 mg/dL (0.70-1.30); EST Glomerular Filtration Rate 20 mL/min (>60); Est Glom Filt Rate - Afr Amer 24 mL/min (>60); Globulin 3.8 g/dL (2.2-4.2); Glucose 140 mg/dL (74-106); High Density Lipoprotein 40 mg/dL; Potassium 5.4 mmol/L (3.5-5.1); Protein, Total 7.4 g/dL (6.4-8.2); Sodium Level 142 mmol/L (136-145); T4 Free Direct 1.11 ng/dL (0.76-1.46); Thyroid Stim Hormone (TSH) 1.48 uIU/mL (0.358-3.74); Triglycerides 306 mg/dL; Very Low Density Lipoprotein 61 mg/dL (5-40)
== END ==
PROVIDERS: PCP Student in an Organized Health Care Education/Training Program; Visit Provider Student in an Organized Health Care Education/Training Program
DX: E03.8 Other specified hypothyroidism (principal); E11.9 Type 2 diabetes mellitus without complications
CPT/HCPCS: 36415; 80053; 80061; 82043; 83036; 84439; 84443; 84481; 85027

== ENCOUNTER → 2020-04-03 11:38 | Outpatient (CLI) | payer MEDICARE, SELFPAY ==
[2020-03-01 14:12] VITALS: BMI 28.6
[2020-04-03 12:05] LABS: Hematocrit 37.7 % (40-54); Hemoglobin 11.9 g/dL (13.0-16.5); Mean Corp Hgb Conc 31.6 g/dL (32-36); Mean Corpuscular Volume 91.7 fL (80-94); Mean Platelet Vol. 11.8 fl (6.2-12.0); Platelet Count 215 K/mm3 (150-450); RBC Distribution Width CV 16.4 % (11.6-14.6); Red Blood Count 4.11 M/mm3 (4.6-6.2); White Blood Count 9.5 K/mm3 (4.4-11.0)
[2020-04-03 12:29] LABS: Albumin, Serum 3.7 g/dL (3.2-5.0); BUN 70 mg/dL (7-18); BUN/Creat Ratio 19.4 RATIO (10-20); Calcium,Total 8.8 mg/dL (8.5-10.1); Chloride 113 mmol/L (98-107); Creatinine, Serum 3.61 mg/dL (0.70-1.30); EST Glomerular Filtration Rate 18 mL/min (>60); Est Glom Filt Rate - Afr Amer 22 mL/min (>60); Glucose 101 mg/dL (74-106); Phosphorus 4.3 mg/dL (2.5-4.9); Potassium 5.9 mmol/L (3.5-5.1); Sodium Level 141 mmol/L (136-145)
[2020-04-03 12:30] LABS: PTHIN 164.8 pg/mL (18.4-80.1)
== END ==
PROVIDERS: PCP Student in an Organized Health Care Education/Training Program; Referring Provider Internal Medicine Nephrology; Visit Provider Internal Medicine Nephrology
DX: N18.4 Chronic kidney disease, stage 4 (severe) (principal)
CPT/HCPCS: 36415; 80069; 83970; 85027

== ENCOUNTER → 2020-04-07 12:21 | Outpatient (CLI) | payer MEDICARE, SELFPAY ==
[2020-03-01 14:12] VITALS: BMI 28.6
[2020-04-07 13:50] LABS: Anion Gap 9 (5-15); BUN 84 mg/dL (7-18); BUN/Creat Ratio 22.2 RATIO (10-20); Calcium,Total 8.7 mg/dL (8.5-10.1); Chloride 112 mmol/L (98-107); Creatinine, Serum 3.78 mg/dL (0.70-1.30); EST Glomerular Filtration Rate 17 mL/min (>60); Est Glom Filt Rate - Afr Amer 21 mL/min (>60); Glucose 148 mg/dL (74-106); Potassium 5.7 mmol/L (3.5-5.1); Sodium Level 139 mmol/L (136-145)
== END ==
PROVIDERS: PCP Student in an Organized Health Care Education/Training Program; Visit Provider Internal Medicine Nephrology
DX: E87.5 Hyperkalemia (principal)
CPT/HCPCS: 36415; 80048

== ENCOUNTER → 2020-04-11 10:37 | Outpatient (CLI) | payer MEDICARE, SELFPAY ==
[2020-03-01 14:12] VITALS: BMI 28.6
[2020-04-11 12:45] LABS: Anion Gap 7 (5-15); BUN 65 mg/dL (7-18); BUN/Creat Ratio 18.1 RATIO (10-20); Calcium,Total 8.8 mg/dL (8.5-10.1); Chloride 113 mmol/L (98-107); EST Glomerular Filtration Rate 18 mL/min (>60); Est Glom Filt Rate - Afr Amer 22 mL/min (>60); Glucose 157 mg/dL (74-106); Potassium 5.3 mmol/L (3.5-5.1); Sodium Level 141 mmol/L (136-145)
== END ==
PROVIDERS: PCP Student in an Organized Health Care Education/Training Program; Visit Provider Internal Medicine Nephrology
DX: E87.5 Hyperkalemia (principal)
CPT/HCPCS: 36415; 80048

== ENCOUNTER → 2020-05-23 14:14 | Outpatient (CLI) | payer MEDICARE, SELFPAY ==
[2020-03-01 14:12] VITALS: BMI 28.6
[2020-05-23 16:40] LABS: Free T3 2.1 pg/mL (2.18-3.98); T4 Free Direct 1.18 ng/dL (0.76-1.46); Thyroid Stim Hormone (TSH) 0.82 uIU/mL (0.358-3.74)
== END ==
PROVIDERS: PCP Student in an Organized Health Care Education/Training Program; Referring Provider Student in an Organized Health Care Education/Training Program; Visit Provider Student in an Organized Health Care Education/Training Program
DX: E03.9 Hypothyroidism, unspecified (principal)
CPT/HCPCS: 36415; 84439; 84443; 84481

== ENCOUNTER → 2020-06-02 09:59 | Outpatient (CLI) | payer MEDICARE, SELFPAY ==
[2020-03-01 14:12] VITALS: BMI 28.6
[2020-06-02 13:04] LABS: Albumin, Serum 3.5 g/dL (3.2-5.0); BUN 48 mg/dL (7-18); BUN/Creat Ratio 15.5 RATIO (10-20); Calcium,Total 9.2 mg/dL (8.5-10.1); Chloride 113 mmol/L (98-107); Creatinine, Serum 3.09 mg/dL (0.70-1.30); EST Glomerular Filtration Rate 22 mL/min (>60); Est Glom Filt Rate - Afr Amer 26 mL/min (>60); Glucose 200 mg/dL (74-106); Phosphorus 2.7 mg/dL (2.5-4.9); Potassium 5.3 mmol/L (3.5-5.1); Sodium Level 141 mmol/L (136-145)
== END ==
PROVIDERS: PCP Student in an Organized Health Care Education/Training Program; Visit Provider Internal Medicine Nephrology
DX: N17.9 Acute kidney failure, unspecified (principal)
CPT/HCPCS: 36415; 80069

== ENCOUNTER → 2020-08-02 10:28 | Outpatient (CLI) | payer MEDICARE, SELFPAY ==
[2020-03-01 14:12] VITALS: BMI 28.6
[2020-08-02 12:47] LABS: Hematocrit 41.3 % (40-54); Hemoglobin 12.8 g/dL (13.0-16.5); Mean Corpuscular Hgb 28.5 pg (27.0-32.0); Mean Platelet Vol. 12.5 fl (6.2-12.0); Platelet Count 239 K/mm3 (150-450); RBC Distribution Width CV 13.9 % (11.6-14.6); RBC Distribution Width SD 47.3 fl (35.1-43.9); Red Blood Count 4.49 M/mm3 (4.6-6.2); White Blood Count 9.6 K/mm3 (4.4-11.0)
[2020-08-02 12:57] LABS: Albumin, Serum 3.2 g/dL (3.2-5.0); BUN 46 mg/dL (7-18); BUN/Creat Ratio 13.4 RATIO (10-20); Calcium,Total 8.8 mg/dL (8.5-10.1); Chloride 111 mmol/L (98-107); Creatinine, Serum 3.44 mg/dL (0.70-1.30); EST Glomerular Filtration Rate 19 mL/min (>60); Est Glom Filt Rate - Afr Amer 23 mL/min (>60); Glucose 124 mg/dL (74-106); Phosphorus 3.3 mg/dL (2.5-4.9); Potassium 5.3 mmol/L (3.5-5.1); Sodium Level 140 mmol/L (136-145)
[2020-08-02 13:22] LABS: PTHIN 241.2 pg/mL (18.4-80.1)
== END ==
PROVIDERS: PCP Student in an Organized Health Care Education/Training Program; Visit Provider Internal Medicine Nephrology
DX: N18.4 Chronic kidney disease, stage 4 (severe) (principal)
CPT/HCPCS: 36415; 80069; 83970; 85027

== ENCOUNTER 2020-08-26 07:54 | Inpatient (IN) | payer MEDICARE, SELFPAY ==
[2020-08-23 06:40] VITALS: BMI 28.8
[2020-08-26] VITALS (9 sets, daily range): BP systolic 106–137; BP diastolic 50–87; PULSE 61–69; RESP 12–22; TEMP 35.5–36.9; O2SAT 95–100; BMI 27.8
--- NOTE | 2020-08-26 08:31 | EDS_ITS ---
HPI History of Present Illness Chief Complaint: Nausea/Vomiting/Diarrhea Informant: patient Narrative Narrative: Patient is a 64-year-old male with a past medical history of CAD, CKD, colon cancer status post resection who presents to the emergency department for nausea/vomiting and diarrhea. He states his diarrhea has been present over the past week. He has around 5 episodes of nonbloody loose stools per day. He developed nausea yesterday and threw up today. He was supposed to have a chest image done for cancer screening but decided to come here instead given his symptoms. He denies any known sick contacts with similar symptoms. He states he has had diarrhea like this before in the past. He states he does get dehydrated and worsens his kidney function. He comes in to get IV fluids. He denies any chest pain, shortness of breath. Did get lightheaded upon standing today. No fevers or chills. No abdominal pain. He denies any urinary symptoms. [facility] Medical History (Updated 08/26/20 @ 10:[address] Kelechi Junior, ) Acute exacerbation of chronic obstructive pulmonary disease (COPD) Acute renal failure superimposed on stage 3 chronic kidney disease Acute renal failure superimposed on stage 4 chronic kidney disease Acute respiratory failure with hypoxemia Anemia of chronic renal failure Atherosclerosis of coronary artery of [place] heart without angina pectoris C. difficile colitis Cholelithiasis Chronic hypoxemic respiratory failure Colon cancer Colon cancer Diabetes mellitus type 2 in obese Essential (primary) hypertension Gastroenteritis Gout Heme + stool Hemorrhoids Hyperkalemia, diminished renal excretion Hyperlipidemia Hyponatremia Hypotension, unspecified Increased PTH level Infectious encephalopathy Influenza B Iron deficiency anemia Low vitamin D level Lower GI bleed Metabolic acidosis Metabolic acidosis Nicotine dependence, cigarettes, in remission Nocturnal hypoxia Non-STEMI (non-ST elevated myocardial infarction) Noncompliance with CPAP treatment NSAID long-term use NSTEMI (non-ST elevated myocardial infarction) (07/2018) NSVT (nonsustained ventricular tachycardia) LADARIUS (obstructive sleep apnea) Paroxysmal atrial fibrillation Peripheral vascular disease Pseudomembranous enterocolitis Radiculopathy affecting upper extremity Septic shock Severe sepsis Severe sepsis Stage 3 severe COPD by GOLD classification Streptococcal pneumonia Uremia of renal origin Urinary retention due to benign prostatic hyperplasia Home Medications nitroglycerin 0.4 mg SUBLINGUAL Q5M PRN 05/14/17 [History Last Taken Unknown] oxycodone 5 mg PO BID PRN PRN 05/14/17 [History Last Taken 12/05/19] allopurinol 300 mg PO DAILY 09/15/17 [History Last Taken 12/06/19] finasteride 5 mg PO DAILY 09/15/17 [History Last Taken 12/07/19] isosorbide mononitrate 30 mg PO DAILY 09/15/17 [History Last Taken 12/07/19] metoprolol succinate 50 mg PO DAILY 09/15/17 [History Last Taken 12/07/19] albuterol sulfate 1 - 2 puff INHALATION Q4H PRN PRN 05/12/18 [History Last Taken 12/05/19] diazepam 5 mg PO DAILY PRN PRN 05/12/18 [History Last Taken 12/05/19] insulin aspart U-100 5 units SC TIDCM #0 05/16/18 [Rx Last Taken 12/07/19] clopidogrel 75 mg PO DAILY 08/04/18 [History Last Taken 12/07/19] aspirin 81 mg PO DAILY@0800 09/07/18 [History Last Taken 12/07/19] cholecalciferol (vitamin D3) 50 mcg (2,000 unit) capsule 50 mcg PO DAILY #90 cap 02/19/19 [History Last Taken 12/06/19] cilostazol 100 mg tablet 100 mg PO QHS tab 09/30/19 [History Last Taken 12/06/19] escitalopram oxalate 20 mg tablet 20 mg PO DAILY 09/30/19 [History Last Taken 12/06/19] ferrous sulfate 325 mg (65 mg iron) tablet 325 mg PO DAILY tab 09/30/19 [History Last Taken 12/07/19] ipratropium 0.5 mg-albuterol 3 mg (2.5 mg base)/3 mL nebulization soln 3 ml INHALATION Q4H PRN ml 09/30/19 [History Last Taken 12/07/19] loperamide 2 mg capsule 2 mg PO Q4H PRN PRN cap 09/30/19 [History Last Taken 12/07/19] rosuvastatin 10 mg tablet 10 mg PO DAILY #90 tab 09/30/19 [History Last Taken 12/06/19] amiodarone 200 mg PO DAILY 12/07/19 [History Last Taken 12/07/19] amlodipine 5 mg PO DAILY 12/07/19 [History Last Taken 12/07/19] levothyroxine 88 mcg PO DAILY 12/07/19 [History Last Taken 12/06/19] sodium bicarbonate 650 mg PO TID 12/07/19 [History Last Taken 12/07/19] insulin degludec 32 units SQ BID #0 12/08/19 [Rx Last Taken 12/07/19] umeclidinium 62.5 mcg-vilanterol 25 mcg/actuation powdr for inhalation 1 inh INHALATION Q24H #60 ea 08/23/20 [Rx Last Taken Unknown] Allergy/AdvReac Type Severity Reaction Status Date / Time No Known Allergies Allergy Verified 08/23/20 11:01 Family History Father Leukemia Mother COPD (chronic obstructive pulmonary disease) Surgical History H/O colectomy H/O pneumonectomy History of coronary artery stent placement (05/18/03) History of left heart catheterization (11/27/09) Status post colon resection Status post insertion of dialysis catheter (07/2018) Social History household members: spouse housing: other details: mobile home current occupational status: disabled pets and animals: Yes pets and animals: dog(s) Smoking Status: Current every day smoker tobacco type: cigarettes Tobacco: How many years used: 40 second hand exposure: No alcohol intake: never substance use type: does not use ROS ROS ED Constitutional Constitutional ED: Denies chills or fever(s) Eyes Eyes: Denies change in vision ENT ENT ED: Denies epistaxis or rhinorrhea Cardiovascular Cardiovascular: Denies chest pain or palpitations Respiratory/Chest Respiratory/Chest: Denies cough, dyspnea or dyspnea on exertion Gastrointestinal Gastrointestinal: Reports diarrhea, nausea and vomiting; Denies abdominal pain, hematemesis, hematochezia or melena Genitourinary Genitourinary ED: Denies dysuria, hematuria or urinary frequency Musculoskeletal Musculoskeletal: Denies back pain or neck pain Integumentary Denies rash Neurologic Neurologic: Denies dizziness, headache(s) or weakness EXAM Physical Exam Const Vital Signs: 08/26/20 07:56 08/26/20 10:34 Temperature 96 F L Temperature Source Temporal Pulse Rate 68 61 Respiratory Rate 14 12 Blood Pressure 122/66 H Blood Pressure Mean 84 Pulse Ox 96 98 Oxygen Delivery Method Room Air Positive well nourished and well developed General Appearance ED: well developed and NAD HEENT Reports normocephalic and head/scalp atraumatic Eyes PERRL and EOMs intact bilaterally Neck supple Resp normal respiratory effort and clear to auscultation bilaterally Auscultation: Negative for rales, rhonchi or wheezes Cardio regular rate, regular rhythm and no murmurs GI normal to inspection, nondistended, normoactive bowel sounds and non-tender Palpation: soft; Negative for guarding or rebound tenderness present Back/Spine no CVA tenderness Extremity normal to inspection General Extremety ED: Negative for edema or tenderness General Extremity: Negative for edema Neuro CN's II-XII intact bilaterally and no sensory deficits noted Sensorium / Orientation: alert Motor Exam: strength 5/5 throughout Psych mental status grossly normal Skin no rashes or lesions noted MDM MDM MDM Narrative Medical decision making narrative: Patient presents to the ED for diarrhea that has been present for the past week. He also has developed nausea/vomiting today. Upon arrival to the emergency department vital signs within normal limits. He is in no acute distress on exam. Patient is concerned about his kidney function as he has known chronic kidney disease. He has had hyperkalemia in the past. He has discussed dialysis with his PCP but states he is refusing this. Patient's lab work did show acute on chronic kidney injury. There is hyperkalemia associated with this. EKG did not show any changes. Patient still adamant on not wanting to do hemodialysis. At this time will bring into the hospital for further evaluation and management. Patient given calcium, insulin/dextrose and a dose of Kayexalate. He otherwise has been stable throughout ED stay. Lab Data Labs: Laboratory Results - last 24 hr 08/26/20 08/26/20 08:35 08:35 WBC 12.7 H RBC 4.91 Hgb 14.2 Hct 45.2 MCV 92.1 MCH 28.9 MCHC 31.4 L RDW Std Deviation 49.5 H RDW Coeff of Joana 14.6 Plt Count 216 MPV 12.5 H Immature Gran % (Auto) 0.700 Neut % (Auto) 84.8 H Lymph % (Auto) 7.6 L [place] % (Auto) 4.9 Eos % (Auto) 1.5 Baso % (Auto) 0.5 Absolute Neuts (auto) 10.8 H Absolute Lymphs (auto) 0.97 Nucleated RBC % 0 Sodium 136 Potassium 6.5 H* Chloride 112 H Carbon Dioxide 13.0 L Anion Gap 11 BUN 95 H Creatinine 7.46 H* Estim Creat Clear Calc 10.84 Est GFR (MDRD) Af Amer 10 L Est GFR (MDRD) Non-Af 8 L BUN/Creatinine Ratio 12.7 Glucose 175 H Calcium 8.8 Total Bilirubin 0.30 AST 12 L ALT 22 Alkaline Phosphatase 191 H Total Protein 7.8 Albumin 3.7 Globulin 4.1 Albumin/Globulin Ratio 0.9 EKG Initial EKG: Attestation: I personally reviewed and interpreted this EKG as follows: (Rate of 61 bpm with prolonged CA interval with first-degree AV block. Otherwise normal intervals. Normal axis. No significant ST elevations or depressions. No T wave abnormalities.) Discharge Plan Dx/Rx/DC Orders Clinical Impression: Acute on chronic kidney failure, Acute hyperkalemia, Diarrhea Disposition Disposition: [facility] Discharge Date/Time: 08/26/20 11:34
[2020-08-26 08:44] LABS: Absolute Lymphocyte Count 0.97 X10^3/uL (0.83-4.51); Absolute Neutrophil Count 10.8 X10^3/uL (2.0-7.7); Basophil# 0.06 X10^3/uL; Basophil% 0.5 % (0-1); Eosinophil# 0.19 X10^3/uL; Eosinophils% 1.5 % (0-5); Hematocrit 45.2 % (40-54); Hemoglobin 14.2 g/dL (13.0-16.5); Lymphocyte # 0.97 X10^3/ul (0.83-4.51); Lymphocyte % 7.6 % (19-41); Mean Corp Hgb Conc 31.4 g/dL (32-36); Mean Corpuscular Hgb 28.9 pg (27.0-32.0); Mean Corpuscular Volume 92.1 fL (80-94); Mean Platelet Vol. 12.5 fl (6.2-12.0); Monocyte# 0.62 X10^3/uL; Monocyte% 4.9 % (0-10); NRBC Flagged by Analyzer 0 % (0-5); Neutrophil # 10.76 X10^3/uL (2.7-7.7); Neutrophil % 84.8 % (47-70); Platelet Count 216 K/mm3 (150-450); RBC Distribution Width CV 14.6 % (11.6-14.6); RBC Distribution Width SD 49.5 fl (35.1-43.9); Red Blood Count 4.91 M/mm3 (4.6-6.2); White Blood Count 12.7 K/mm3 (4.4-11.0)
[2020-08-26 09:10] LABS: ALB/GLOB Ratio 0.9 RATIO (0.9-2.4); AST(SGOT) 12 U/L (15-37); Alanine Aminotransfer ALT/SGPT 22 U/L (16-61); Albumin, Serum 3.7 g/dL (3.2-5.0); Alkaline Phosphatase 191 U/L (45-117); Anion Gap 11 (5-15); BUN 95 mg/dL (7-18); BUN/Creat Ratio 12.7 RATIO (10-20); Calcium,Total 8.8 mg/dL (8.5-10.1); Chloride 112 mmol/L (98-107); Creatinine, Serum 7.46 mg/dL (0.70-1.30); EST Glomerular Filtration Rate 8 mL/min (>60); Est Glom Filt Rate - Afr Amer 10 mL/min (>60); Estimated Creatinine Clearance 10.84 ml/min; Globulin 4.1 g/dL (2.2-4.2); Glucose 175 mg/dL (74-106); Potassium 6.5 mmol/L (3.5-5.1); Protein, Total 7.8 g/dL (6.4-8.2); Sodium Level 136 mmol/L (136-145)
--- NOTE | 2020-08-26 10:14 | EKG12_ITS ---
Test Reason : NAUSEA/VOMITING Blood Pressure : / mmHG Vent. Rate : 061 BPM Atrial Rate : 061 BPM P-R Int : 292 ms QRS Dur : 112 ms QT Int : 416 ms P-R-T Axes : 035 068 127 degrees QTc Int : 418 ms Sinus rhythm with 1st degree A-V block Incomplete left bundle branch block Borderline ECG Confirmed by HARSH ASIF, SARA ([id number]), pictures editor JARED MADRID ([id number]) on 08/31/2020 9:21:59 AM Referred By: BERNA Confirmed By:SARA HOUSE MD
[2020-08-26] MEDS: Sodium Polystyrene Sulfonate 15 GM/60 ML UDC PO (10:26)
[2020-08-26] MEDS: 0.9% Normal Saline 1,000 ML 999 ML IV (10:26)
[2020-08-26] MEDS: Dextrose 50%-Water 25 GM/50 ML DISP.SYRIN IV (10:36)
[2020-08-26] MEDS: Insulin Lispro 10 UNIT in Syringe 0 ML 6 UNIT IV (10:37)
--- NOTE | 2020-08-26 11:58 | PCM.HP.STD ---
HPI - General General Date of Admission: 08/26/20 HPI Narrative BARI KELLY, is a 64 M who presents to the hospital with nausea, vomiting, diarrhea. He says that he has intermittent chronic diarrhea however this has been worse over the last 5 days and then yesterday and today he started throwing up. He does have a history of chronic kidney disease but is not on dialysis and refuses dialysis, he states that he feels fine and that he knows that eventually his renal function will get worse but he still refuses to ever be on dialysis. In the ER he was found to be in acute renal failure, creatinine over 7 his baseline is around 3-4. He was also found to be hyperkalemic with a potassium of 6.5 and this was treated appropriately in the ER with Kayexalate, calcium gluconate, as well as insulin and glucose. [facility] Medical History (Updated 08/26/20 @ 12:11 by Jill Rowland) Acute exacerbation of chronic obstructive pulmonary disease (COPD) Acute renal failure superimposed on stage 3 chronic kidney disease Acute renal failure superimposed on stage 4 chronic kidney disease Acute respiratory failure with hypoxemia Anemia of chronic renal failure Anxiety Atherosclerosis of coronary artery of tribe heart without angina pectoris C. difficile colitis Cancer Cholelithiasis Chronic hypoxemic respiratory failure Colon cancer Colon cancer COPD (chronic obstructive pulmonary disease) Depression Diabetes Diabetes mellitus type 2 in obese Essential (primary) hypertension Gastroenteritis Gout Heme + stool Hemorrhoids Hyperkalemia, diminished renal excretion Hyperlipidemia Hyponatremia Hypotension, unspecified Increased PTH level Infectious encephalopathy Influenza B Iron deficiency anemia Kidney disease Low vitamin D level Lower GI bleed Metabolic acidosis Metabolic acidosis Myocardial infarct Nicotine dependence, cigarettes, in remission Nocturnal hypoxia Non-STEMI (non-ST elevated myocardial infarction) Noncompliance with CPAP treatment NSAID long-term use NSTEMI (non-ST elevated myocardial infarction) (07/2018) NSVT (nonsustained ventricular tachycardia) LADARIUS (obstructive sleep apnea) Paroxysmal atrial fibrillation Peripheral vascular disease Pseudomembranous enterocolitis Radiculopathy affecting upper extremity Septic shock Severe sepsis Severe sepsis Sleep apnea Smoker Stage 3 severe COPD by GOLD classification Streptococcal pneumonia Uremia of renal origin Urinary retention due to benign prostatic hyperplasia Home Medications nitroglycerin 0.4 mg SUBLINGUAL Q5M PRN 05/14/17 [History Last Taken Unknown] oxycodone 5 mg PO BID PRN PRN 05/14/17 [History Last Taken 12/05/19] allopurinol 300 mg PO DAILY 09/15/17 [History Last Taken 12/06/19] finasteride 5 mg PO DAILY 09/15/17 [History Last Taken 12/07/19] isosorbide mononitrate 30 mg PO DAILY 09/15/17 [History Last Taken 12/07/19] metoprolol succinate 50 mg PO DAILY 09/15/17 [History Last Taken 12/07/19] albuterol sulfate 1 - 2 puff INHALATION Q4H PRN PRN 05/12/18 [History Last Taken 12/05/19] diazepam 5 mg PO DAILY PRN PRN 05/12/18 [History Last Taken 12/05/19] insulin aspart U-100 5 units SC TIDCM #0 05/16/18 [Rx Last Taken 12/07/19] clopidogrel 75 mg PO DAILY 08/04/18 [History Last Taken 12/07/19] aspirin 81 mg PO DAILY@0800 09/07/18 [History Last Taken 12/07/19] cholecalciferol (vitamin D3) 50 mcg (2,000 unit) capsule 50 mcg PO DAILY #90 cap 02/19/19 [History Last Taken 12/06/19] cilostazol 100 mg tablet 100 mg PO QHS tab 09/30/19 [History Last Taken 12/06/19] escitalopram oxalate 20 mg tablet 20 mg PO DAILY 09/30/19 [History Last Taken 12/06/19] ferrous sulfate 325 mg (65 mg iron) tablet 325 mg PO DAILY tab 09/30/19 [History Last Taken 12/07/19] ipratropium 0.5 mg-albuterol 3 mg (2.5 mg base)/3 mL nebulization soln 3 ml INHALATION Q4H PRN ml 09/30/19 [History Last Taken 12/07/19] loperamide 2 mg capsule 2 mg PO Q4H PRN PRN cap 09/30/19 [History Last Taken 12/07/19] rosuvastatin 10 mg tablet 10 mg PO DAILY #90 tab 09/30/19 [History Last Taken 12/06/19] amiodarone 200 mg PO DAILY 12/07/19 [History Last Taken 12/07/19] amlodipine 5 mg PO DAILY 12/07/19 [History Last Taken 12/07/19] levothyroxine 88 mcg PO DAILY 12/07/19 [History Last Taken 12/06/19] sodium bicarbonate 650 mg PO TID 12/07/19 [History Last Taken 12/07/19] insulin degludec 32 units SQ BID #0 12/08/19 [Rx Last Taken 12/07/19] umeclidinium 62.5 mcg-vilanterol 25 mcg/actuation powdr for inhalation 1 inh INHALATION Q24H #60 ea 08/23/20 [Rx Last Taken Unknown] Allergy/AdvReac Type Severity Reaction Status Date / Time No Known Allergies Allergy Verified 08/23/20 11:01 Family History Father Leukemia Mother COPD (chronic obstructive pulmonary disease) Surgical History H/O colectomy H/O pneumonectomy History of coronary artery stent placement (05/18/03) History of left heart catheterization (11/27/09) Status post colon resection Status post insertion of dialysis catheter (07/2018) Social History household members: spouse housing: other details: mobile home current occupational status: disabled pets and animals: Yes pets and animals: dog(s) Smoking Status: Current every day smoker tobacco type: cigarettes Tobacco: How many years used: 40 second hand exposure: No alcohol intake: never substance use type: does not use ROS Constitutional Constitutional: Denies chills, fatigue, fever(s) or malaise Eyes Eyes: Denies blurry vision ENT HEENT: Denies headache(s) or nasal discharge Cardiovascular Cardiovascular: Denies chest pain, dyspnea on exertion or syncope Respiratory/Chest Respiratory/Chest: Denies cough, shortness of breath at rest or shortness of breath with exertion Gastrointestinal Gastrointestinal: Reports diarrhea, nausea and vomiting; Denies constipation Genitourinary Genitourinary: Denies dysuria Neurologic Neurologic: Denies focal weakness, numbness or tremor(s) Psychiatric Psychiatric: Denies anxiety or depression Vital Signs Vital Signs Vital Signs: 08/26/20 07:56 08/26/20 10:34 08/26/20 11:04 Temperature 96 F L 97.8 F Temperature Source Temporal Temporal Pulse Rate 68 61 66 Respiratory Rate 14 12 16 Blood Pressure 122/66 H 129/87 H Blood Pressure Mean 84 101 Blood Pressure Source Blood Pressure Position Blood Pressure Location Pulse Ox 96 98 97 Oxygen Delivery Method Room Air 08/26/20 11:40 Temperature 97.6 F L Temperature Source Oral Pulse Rate 69 Respiratory Rate 22 H Blood Pressure 137/67 H Blood Pressure Mean 90 Blood Pressure Source Monitor Blood Pressure Position Semi-Fowlers Blood Pressure Location Left Arm Pulse Ox 96 Oxygen Delivery Method Room Air Weight Weight: 205 lb 0.478 oz Body Mass Index (BMI) 27.8 Physical Exam Const alert, oriented x3 and no apparent distress General Appearance: cooperative HEENT normocephalic Mouth: dry mucous membranes Eyes PERRL, EOMs intact bilaterally and conjunctivae normal Neck supple and no JVD Resp normal respiratory effort, no retractions, no use of accessory muscles and clear to auscultation bilaterally Auscultation: Negative for crackles, rales, rhonchi or wheezes Cardio regular rate, regular rhythm, S1 normal heart sound, S2 normal heart sound and no murmurs GI soft to palpation, non-tender and non-distended; Negative for hepatosplenomegaly Extremity no clubbing, cyanosis or edema Skin no rashes or lesions noted Neuro no focal motor deficits and no sensory deficits noted Psych affect normal Appearance: appropriate Results Lab / Micro Data Result Diagrams: 08/26/20 08:35 08/26/20 08:35 Labs: Laboratory Results - last 24 hr 08/26/20 08/26/20 08:35 08:35 WBC 12.7 H RBC 4.91 Hgb 14.2 Hct 45.2 MCV 92.1 MCH 28.9 MCHC 31.4 L RDW Std Deviation 49.5 H RDW Coeff of Joana 14.6 Plt Count 216 MPV 12.5 H Immature Gran % (Auto) 0.700 Neut % (Auto) 84.8 H Lymph % (Auto) 7.6 L [place] % (Auto) 4.9 Eos % (Auto) 1.5 Baso % (Auto) 0.5 Absolute Neuts (auto) 10.8 H Absolute Lymphs (auto) 0.97 Nucleated RBC % 0 Sodium 136 Potassium 6.5 H* Chloride 112 H Carbon Dioxide 13.0 L Anion Gap 11 BUN 95 H Creatinine 7.46 H* Estim Creat Clear Calc 10.84 Est GFR (MDRD) Af Amer 10 L Est GFR (MDRD) Non-Af 8 L BUN/Creatinine Ratio 12.7 Glucose 175 H Calcium 8.8 Total Bilirubin 0.30 AST 12 L ALT 22 Alkaline Phosphatase 191 H Total Protein 7.8 Albumin 3.7 Globulin 4.1 Albumin/Globulin Ratio 0.9 Assessment & Plan Assessment/Plan (1) Acute hyperkalemia: (2) Diarrhea: (3) Acute renal failure superimposed on stage 4 chronic kidney disease: PLAN: 1. Acute on chronic renal failure secondary to diarrhea/hyperkalemia -He normally has diarrhea about 2-3 times a day however the last 2 weeks has been having 5-6 episodes a day. And then yesterday he had nausea and emesis for the first time. -Creatinine is up over 7 with a potassium of 6.5 -This was treated in the ER, will recheck in the morning -We will continue with gentle IV fluid hydration. -Likely the diarrhea precipitated the acute renal failure which then precipitated the emesis, during my evaluation he was tolerating a diet -Continues to refuse dialysis 2. Paroxysmal A. fib/HTN/HLD/PAD -Blood pressure is currently stable -Can continue his home medications once verified 3. IDDM 2 -Once his home insulin is verified can continue -SSI, Accu-Cheks AC at bedtime 4. Hypothyroidism -Stable -Continue with Synthroid when verified 5. Anxiety/depression -Stable -Can continue with his home medications when verified 6. GERD -Stable -Continue with PPI when verified 7. Gout -Stable -Can continue with allopurinol when verified DVT: Heparin Charges/Coding Visit Charges Inpatient E&M: 16015 Init Hosp L3
--- NOTE | 2020-08-26 12:12 | NURSING ---
PT STATES DOES NOT GET FLU VACCINE & HAS NOT GOTTEN COVID VACCINE
[2020-08-26] MEDS: 0.9% Normal Saline 1,000 ML 100 ML IV ×2 (12:50→22:14)
[2020-08-26 13:20] LABS: Bedside Glucose 79 mg/dL (70-110)
[2020-08-26] MEDS: Heparin Injection (Vial) 5,000 UNIT/ML VIAL 5000 UNIT SC ×2 (14:02→20:59)
--- NOTE | 2020-08-26 14:30 | CM.UR ---
RN CM Face to Face with patient for initial transition planning/care coordination assessment. RN CM introduced self and role at [facility]. Patient lying in bed, alert and oriented. Patient willing to participate in assessment and is able to answer all questions appropriately. Care providers, pharmacy, and demographics verified. Patient wishes to discharge home, denies need for home health at this time. Patient states he has no further needs or concerns at this time. CM to follow for discharge planning needs that may arise. 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 Patient states he is independent at home. Transportation: self/sister DME/HHC: Patient states he has shower chair, grab bars, nebulizer, and walker at home. Patient denies previous HHC. Disposition Plan: Patient to discharge home with family support and follow-up plans in place. Alina PATHAK, RN, CM
[2020-08-26 16:15] LABS: Bedside Glucose 184 mg/dL (70-110)
[2020-08-26] MEDS: Insulin Lispro 100 UNIT/ML INSULN.PEN SC (16:19)
[2020-08-26] MEDS: Cilostazol 50 MG Tablet 100 MG PO (20:57)
[2020-08-26] MEDS: Sodium Bicarbonate 650 MG Tablet PO (20:58)
[2020-08-26] MEDS: Atorvastatin Calcium 20 MG Tablet PO (20:58)
[2020-08-26 21:10] LABS: Bedside Glucose 131 mg/dL (70-110)
[2020-08-27] VITALS (11 sets, daily range): BP systolic 102–110; BP diastolic 56–67; PULSE 63–79; RESP 16–18; TEMP 36.4–36.7; O2SAT 95–98; BMI 27.8
[2020-08-27] MEDS: Heparin Injection (Vial) 5,000 UNIT/ML VIAL 5000 UNIT SC ×3 (06:09→21:13)
[2020-08-27] MEDS: Levothyroxine 88 MCG Tablet PO (06:09)
[2020-08-27 06:45] LABS: Bedside Glucose 149 mg/dL (70-110)
[2020-08-27 06:51] LABS: Absolute Lymphocyte Count 1.59 X10^3/uL (0.83-4.51); Absolute Neutrophil Count 6.7 X10^3/uL (2.0-7.7); Basophil# 0.05 X10^3/uL; Basophil% 0.5 % (0-1); Eosinophil# 0.38 X10^3/uL; Hematocrit 40.6 % (40-54); Hemoglobin 12.6 g/dL (13.0-16.5); Lymphocyte # 1.59 X10^3/ul (0.83-4.51); Lymphocyte % 16.7 % (19-41); Mean Corpuscular Hgb 28.5 pg (27.0-32.0); Mean Corpuscular Volume 91.9 fL (80-94); Mean Platelet Vol. 12.5 fl (6.2-12.0); Monocyte# 0.74 X10^3/uL; Monocyte% 7.8 % (0-10); NRBC Flagged by Analyzer 0 % (0-5); Neutrophil # 6.68 X10^3/uL (2.7-7.7); Neutrophil % 70.4 % (47-70); Platelet Count 185 K/mm3 (150-450); RBC Distribution Width CV 14.8 % (11.6-14.6); RBC Distribution Width SD 49.7 fl (35.1-43.9); Red Blood Count 4.42 M/mm3 (4.6-6.2); White Blood Count 9.5 K/mm3 (4.4-11.0)
[2020-08-27 07:17] LABS: Anion Gap 9 (5-15); BUN 95 mg/dL (7-18); BUN/Creat Ratio 14.4 RATIO (10-20); Calcium,Total 8.6 mg/dL (8.5-10.1); Chloride 116 mmol/L (98-107); EST Glomerular Filtration Rate 9 mL/min (>60); Est Glom Filt Rate - Afr Amer 11 mL/min (>60); Estimated Creatinine Clearance 12.25 ml/min; Glucose 150 mg/dL (74-106); Magnesium 2.2 mg/dL (1.6-2.6); Phosphorus 5.4 mg/dL (2.5-4.9); Potassium 5.8 mmol/L (3.5-5.1); Sodium Level 139 mmol/L (136-145)
[2020-08-27] MEDS: 0.9% Normal Saline 1,000 ML 100 ML IV ×2 (08:00→17:28)
[2020-08-27] MEDS: Ferrous Sulfate 325 MG Tablet PO (08:18)
[2020-08-27] MEDS: Pantoprazole Sodium 40 MG Tablet PO (08:18)
[2020-08-27] MEDS: Amiodarone 200 MG Tablet PO (08:18)
[2020-08-27] MEDS: Clopidogrel Bisulfate 75 MG Tablet PO (08:19)
[2020-08-27] MEDS: Escitalopram Oxalate 20 MG Tablet PO (08:19)
[2020-08-27] MEDS: Sodium Bicarbonate 650 MG Tablet PO ×2 (08:20→21:14)
[2020-08-27] MEDS: Metoprolol(XL)Succ 50 MG Tablet PO (08:20)
[2020-08-27] MEDS: Allopurinol 300 MG Tablet PO (08:20)
[2020-08-27] MEDS: Isosorbide Mononitrate 30 MG Tablet PO (08:20)
[2020-08-27] MEDS: Finasteride 5 MG Tablet PO (08:21)
--- NOTE | 2020-08-27 09:12 | PN.HOSP_ITS ---
Subjective Subjective Feeling better today, states that he has not had any significant nausea or vomiting and feels like his stools are hardening up. No new issues overnight Objective Data Objective Data Vital Signs: Vital Signs Temp Pulse Resp BP Pulse Ox 98.1 F 65 18 110/62 98 08/27/20 08:00 08/27/20 08:20 08/27/20 08:00 08/27/20 08:00 08/27/20 08:00 Oxygen Delivery Method Room Air Weight: 205 lb 0.478 oz Body Mass Index (BMI) 27.8 Intake & Output: Intake and Output for Last 24 Hours 08/26/20 08/27/20 08/28/20 03:59 03:59 03:59 Intake Total 2420 / 2420 1076.67 / 1076.67 Output Total 0 / 0 Balance 2420 / 2420 1076.67 / 1076.67 Lab / Micro Data Result Diagrams: 08/27/20 05:57 08/27/20 05:57 Labs: Laboratory Results - last 24 hr 08/26/20 08/26/20 08/26/20 12:45 16:12 20:51 WBC RBC Hgb Hct MCV MCH MCHC RDW Std Deviation RDW Coeff of Joana Plt Count MPV Immature Gran % (Auto) Neut % (Auto) Lymph % (Auto) [place] % (Auto) Eos % (Auto) Baso % (Auto) Absolute Neuts (auto) Absolute Lymphs (auto) Nucleated RBC % Sodium Potassium Chloride Carbon Dioxide Anion Gap BUN Creatinine Estim Creat Clear Calc Est GFR (MDRD) Af Amer Est GFR (MDRD) Non-Af BUN/Creatinine Ratio Glucose Calcium Phosphorus Magnesium POC Glucose 79 184 H 131 H 08/27/20 08/27/20 08/27/20 05:57 05:57 06:40 WBC 9.5 RBC 4.42 L Hgb 12.6 L Hct 40.6 MCV 91.9 MCH 28.5 MCHC 31.0 L RDW Std Deviation 49.7 H RDW Coeff of Joana 14.8 H Plt Count 185 MPV 12.5 H Immature Gran % (Auto) 0.600 Neut % (Auto) 70.4 H Lymph % (Auto) 16.7 L [place] % (Auto) 7.8 Eos % (Auto) 4.0 Baso % (Auto) 0.5 Absolute Neuts (auto) 6.7 Absolute Lymphs (auto) 1.59 Nucleated RBC % 0 Sodium 139 Potassium 5.8 H Chloride 116 H Carbon Dioxide 14.0 L Anion Gap 9 BUN 95 H Creatinine 6.60 H Estim Creat Clear Calc 12.25 Est GFR (MDRD) Af Amer 11 L Est GFR (MDRD) Non-Af 9 L BUN/Creatinine Ratio 14.4 Glucose 150 H Calcium 8.6 Phosphorus 5.4 H Magnesium 2.2 POC Glucose 149 H Physical Exam Const alert, oriented x3 and no apparent distress General Appearance: cooperative HEENT normocephalic Eyes PERRL, EOMs intact bilaterally and conjunctivae normal Neck supple and no JVD Resp normal respiratory effort, no retractions, no use of accessory muscles and clear to auscultation bilaterally Auscultation: Negative for crackles, rales, rhonchi or wheezes Cardio regular rate, regular rhythm, S1 normal heart sound, S2 normal heart sound and no murmurs GI soft to palpation, non-tender and non-distended; Negative for hepatosplenomegaly Extremity no clubbing, cyanosis or edema Skin no rashes or lesions noted Neuro no focal motor deficits and no sensory deficits noted Psych affect normal Appearance: appropriate Assessment & Plan Assessment/Plan (1) Acute hyperkalemia: (2) Diarrhea: (3) Acute renal failure superimposed on stage 4 chronic kidney disease: PLAN: 1. Acute on chronic renal failure secondary to diarrhea/hyperkalemia -He normally has diarrhea about 2-3 times a day however the last 2 weeks has been having 5-6 episodes a day. And then he had nausea and emesis for the first time, the day prior to admission -Creatinine and potassium are improving -This was treated in the ER, will recheck in the morning -We will continue with gentle IV fluid hydration. -Likely the diarrhea precipitated the acute renal failure which then precipitated the emesis, during my evaluation he was tolerating a diet -Continues to refuse dialysis 2. Paroxysmal A. fib/HTN/HLD/PAD -Blood pressure is currently stable -Can continue his home medications once verified 3. IDDM 2 -Once his home insulin is verified can continue -SSI, Accu-Cheks AC at bedtime 4. Hypothyroidism -Stable -Continue with Synthroid when verified 5. Anxiety/depression -Stable -Can continue with his home medications when verified 6. GERD -Stable -Continue with PPI when verified 7. Gout -Stable -Can continue with allopurinol when verified DVT: Heparin Charges/Coding Visit Charges Inpatient E&M: 30417 Subs Hosp L2
[2020-08-27] MEDS: Insulin Lispro 100 UNIT/ML INSULN.PEN SC ×2 (12:07→21:12)
[2020-08-27] MEDS: diazePAM 5 MG Tablet PO (12:09)
[2020-08-27] MEDS: oxyCODONE 5 MG Tablet PO (12:09)
[2020-08-27 12:56] LABS: Bedside Glucose 185 mg/dL (70-110)
--- NOTE | 2020-08-27 13:33 | EX.NTREPO ---
Medical Nutrition Therapy - History Current diet/nutrition support order:: Consistent carbohydrate, 1800 calorie controlled - Anthropometric Measurements Height:: 6 ft Weight:: 93 kg Body Mass Index (BMI):: 27.8 - Relevant Labs Relevant Labs:: WBC 12.7 K/mm3 (4.4-11.0) H 08/26/20 08:35 RBC 4.42 M/mm3 (4.6-6.2) L 08/27/20 05:57 Hgb 12.6 g/dL (13.0-16.5) L 08/27/20 05:57 MCHC 31.0 g/dL (32-36) L 08/27/20 05:57 RDW Std Deviation 49.7 fl (35.1-43.9) H 08/27/20 05:57 RDW Coeff of Joana 14.8 % (11.6-14.6) H 08/27/20 05:57 MPV 12.5 fl (6.2-12.0) H 08/27/20 05:57 Neut % (Auto) 70.4 % (47-70) H 08/27/20 05:57 Lymph % (Auto) 16.7 % (19-41) L 08/27/20 05:57 Absolute Neuts (auto) 10.8 X10^3/uL (2.0-7.7) H 08/26/20 08:35 Potassium 5.8 mmol/L (3.5-5.1) H 08/27/20 05:57 Chloride 116 mmol/L (98-107) H 08/27/20 05:57 Carbon Dioxide 14.0 mmol/L (21.0-32.0) L 08/27/20 05:57 BUN 95 mg/dL (7-18) H 08/27/20 05:57 Creatinine 6.60 mg/dL (0.70-1.30) H 08/27/20 05:57 Est GFR (MDRD) Af Amer 11 mL/min (>60) L 08/27/20 05:57 Est GFR (MDRD) Non-Af 9 mL/min (>60) L 08/27/20 05:57 Glucose 150 mg/dL (74-106) H 08/27/20 05:57 Phosphorus 5.4 mg/dL (2.5-4.9) H 08/27/20 05:57 AST 12 U/L (15-37) L 08/26/20 08:35 Alkaline Phosphatase 191 U/L (45-117) H 08/26/20 08:35 - Assessment Food and Nutrient Intake: Pt reports decreased appetite for ~1 week d/t severe diarrhea. Pt states he was eating very little because he was going to the bathroom so frequently. Pt states he weighed 211# and CBW 205#-6#/2.8% wt loss x 1 week is significant for malnutrition. - Nutrition Diagnosis: Clinical Problem Altered Nutrient-Related Laboratory Values Clinical Problem - Etiology: r/t acute renal failure from gastroenteritis Clinical Problem - Signs/Symptoms: as evidenced by potassium 5.8, BUN 95, creatinine 6.60, phosphorus 5.4, glucose 150 Status: Active Problem Acute Disease or Injury Related Malnutrition Clinical Problem - Etiology: severe, acute malnutrition r/t inadequate energy intake w/ GI dysfunction Clinical Problem - Signs/Symptoms: as evidenced by unintentional wt loss of 6#/2.8% x 1 week, estimated PO intake meeting <50% of estimated nutritional needs x 1 week Status: Active Problem - Protein Calorie Malnutrition Evidence of Malnutrition Exists: Yes Severe Protein Calorie Malnutrition:: Acute Illness/Injury - Nutrition Intervention Nutrition Prescription: 6380-6590 calories/day (1.3xRMR). 55-75 g protein/day (0.6-0.8g/kg). 2325mL fluid/day (25mL/kg) - Food / Nutrient Delivery Interventions Summary of nutrition intervention:: Adjust diet order Nutrition support ordered as / adjusted to:: Continue consistent carbohydrate diet; will increase to 2200 calories/day to better meet nutritional needs. Will add potassium/phosphorus restriction given lab values. No ONS at this time- will monitor need pending further PO intake at meals. - MNT Monitoring Active Nutrition Patient: Yes Nutrition Status: Requires Follow Up 3-5 Days
[2020-08-27 17:30] LABS: Bedside Glucose 131 mg/dL (70-110)
[2020-08-27] MEDS: Ondansetron 4 MG/2 ML Vial IV (21:08)
[2020-08-27] MEDS: Atorvastatin Calcium 20 MG Tablet PO (21:14)
[2020-08-27] MEDS: Cilostazol 50 MG Tablet 100 MG PO (21:15)
[2020-08-27 21:51] LABS: Bedside Glucose 221 mg/dL (70-110)
[2020-08-28] VITALS (12 sets, daily range): BP systolic 109–150; BP diastolic 52–70; PULSE 67–88; RESP 15–22; TEMP 36.6–37.2; O2SAT 95–100
[2020-08-28] MEDS: 0.9% Normal Saline 1,000 ML 100 ML IV ×2 (03:27→14:50)
[2020-08-28] MEDS: Heparin Injection (Vial) 5,000 UNIT/ML VIAL 5000 UNIT SC ×3 (04:53→21:08)
[2020-08-28] MEDS: Levothyroxine 88 MCG Tablet PO (04:53)
[2020-08-28 06:46] LABS: Bedside Glucose 142 mg/dL (70-110)
[2020-08-28 07:23] LABS: Anion Gap 9 (5-15); BUN 95 mg/dL (7-18); BUN/Creat Ratio 16.2 RATIO (10-20); Calcium,Total 8.3 mg/dL (8.5-10.1); Chloride 122 mmol/L (98-107); Creatinine, Serum 5.86 mg/dL (0.70-1.30); EST Glomerular Filtration Rate 10 mL/min (>60); Est Glom Filt Rate - Afr Amer 13 mL/min (>60); Estimated Creatinine Clearance 13.79 ml/min; Glucose 136 mg/dL (74-106); Potassium 5.7 mmol/L (3.5-5.1); Sodium Level 142 mmol/L (136-145)
[2020-08-28] MEDS: Isosorbide Mononitrate 30 MG Tablet PO (10:36)
[2020-08-28] MEDS: Ferrous Sulfate 325 MG Tablet PO (10:36)
[2020-08-28] MEDS: Amiodarone 200 MG Tablet PO (10:36)
[2020-08-28] MEDS: Escitalopram Oxalate 20 MG Tablet PO (10:37)
[2020-08-28] MEDS: Clopidogrel Bisulfate 75 MG Tablet PO (10:37)
[2020-08-28] MEDS: Finasteride 5 MG Tablet PO (10:37)
[2020-08-28] MEDS: Sodium Bicarbonate 650 MG Tablet PO (10:38)
[2020-08-28] MEDS: Allopurinol 300 MG Tablet PO (10:38)
[2020-08-28] MEDS: Pantoprazole Sodium 40 MG Tablet PO (10:38)
[2020-08-28] MEDS: Metoprolol(XL)Succ 50 MG Tablet PO (10:38)
[2020-08-28] MEDS: Sodium Polystyrene Sulfonate 15 GM/60 ML UDC 30 GM PO (10:41)
[2020-08-28] MEDS: Insulin Lispro 100 UNIT/ML INSULN.PEN SC ×2 (13:21→21:08)
[2020-08-28 13:25] LABS: Bedside Glucose 165 mg/dL (70-110)
[2020-08-28] MEDS: Ipratropium/Albuterol Sulfate 3 ML AMPUL.NEB INHALATION ×2 (13:29→19:09)
[2020-08-28] MEDS: 0.9% Saline Lock 10 ML Syringe IV ×2 (14:50→22:23)
--- NOTE | 2020-08-28 15:21 | PN.HOSP_ITS ---
Subjective Subjective Patient seen and examined. He has no complaints this morning. Review of systems otherwise negative. His potassium was 5.7 today. Patient still refuses dialysis. He has otherwise remained hemodynamically stable. Objective Data Objective Data Vital Signs: Vital Signs Temp Pulse Resp BP Pulse Ox 98.4 F 73 18 118/52 L 99 08/28/20 14:51 08/28/20 14:51 08/28/20 14:51 08/28/20 14:51 08/28/20 14:51 Oxygen Delivery Method Room Air Weight: 205 lb 0.478 oz Body Mass Index (BMI) 27.8 Intake & Output: Intake and Output for Last 24 Hours 08/26/20 08/27/20 08/28/20 23:59 23:59 23:59 Intake Total 2420 / 2420 2473.34 / 2873.34 3043.33 / 3043.33 Output Total 0 / 0 300 / 300 Balance 2420 / 2420 2473.34 / 2873.34 2743.33 / 2743.33 Lab / Micro Data Result Diagrams: 08/27/20 05:57 08/28/20 05:55 Labs: Laboratory Results - last 24 hr 08/27/20 08/27/20 08/28/20 17:26 21:11 05:55 Sodium 142 Potassium 5.7 H Chloride 122 H Carbon Dioxide 11.0 L Anion Gap 9 BUN 95 H Creatinine 5.86 H Estim Creat Clear Calc 13.79 Est GFR (MDRD) Af Amer 13 L Est GFR (MDRD) Non-Af 10 L BUN/Creatinine Ratio 16.2 Glucose 136 H Calcium 8.3 L POC Glucose 131 H 221 H 08/28/20 08/28/20 06:36 13:20 Sodium Potassium Chloride Carbon Dioxide Anion Gap BUN Creatinine Estim Creat Clear Calc Est GFR (MDRD) Af Amer Est GFR (MDRD) Non-Af BUN/Creatinine Ratio Glucose Calcium POC Glucose 142 H 165 H Physical Exam Const alert, oriented x3 and no apparent distress Exam Limitations: no limitations HEENT head/scalp atraumatic and moist oral mucous membranes Head and Scalp: normocephalic Eyes PERRL, EOMs intact bilaterally and conjunctivae normal Neck no lymphadenopathy, supple and no JVD Resp normal respiratory effort, no retractions, no use of accessory muscles and clear to auscultation bilaterally Cardio regular rate, regular rhythm, S1 normal heart sound, S2 normal heart sound and no murmurs GI normal to inspection, nondistended, normoactive bowel sounds, soft to palpation, non-tender and non-distended Extremity normal to inspection, full ROM and no clubbing, cyanosis or edema Peripheral Pulses: Yes pulses 2+ throughout Skin no rashes or lesions noted Neuro oriented x3 Sensorium / Orientation: awake and alert Psych affect normal Assessment & Plan Assessment/Plan (1) Acute hyperkalemia: PLAN: #HYperkalemia * K is 5.7 today. * patient still refuses dialysis for CKD * will give sodium Kayexalate 30 mg x 1. * Trend potassium levels. * #NICK on CKD stage IV: Patient still refuses dialysis. Continue gentle hydration with IV fluids. Cr is 5.86. Nephrology on board. #Non-anion gap metabolic acidosis * bicarb is 11. this is likely due to RTA 4, in the setting of hyperkalemia, and all due to renal impairment * consult nephrology. * will benefit from bicarb * #Diarrhea: Resolved. He states his diarrhea is much better today. #Paroxysmal afib: on amiodarone. #Peripheral artery disease: on pletal, plavix and statin. also on imdur #Hypertension: metoprolol. #Hypothyroidism: on synthroid. #Type diabetes mellitus * on lantus 15 units daily. ISS. Accuchecks ACHS * DVT prophylaxis: heparin Charges/Coding Visit Charges Inpatient E&M: 65271 Subs Hosp L3
[2020-08-28 17:16] LABS: Bedside Glucose 147 mg/dL (70-110)
[2020-08-28] MEDS: oxyCODONE 5 MG Tablet PO (18:57)
[2020-08-28] MEDS: diazePAM 5 MG Tablet PO (18:57)
[2020-08-28] MEDS: Cilostazol 50 MG Tablet 100 MG PO (21:09)
[2020-08-28] MEDS: Atorvastatin Calcium 20 MG Tablet PO (21:09)
[2020-08-28 21:41] LABS: Bedside Glucose 170 mg/dL (70-110)
[2020-08-28] MEDS: Sodium Bicarbonate 8.4% 50 ML Syringe 50 MEQ IV (22:24)
[2020-08-29] VITALS (10 sets, daily range): BP systolic 114–134; BP diastolic 63–76; PULSE 73–83; RESP 20–22; TEMP 36.3–37.3; O2SAT 96–99
[2020-08-29] MEDS: Heparin Injection (Vial) 5,000 UNIT/ML VIAL 5000 UNIT SC ×3 (05:42→20:58)
[2020-08-29] MEDS: Levothyroxine 88 MCG Tablet PO (05:42)
[2020-08-29 06:30] LABS: Absolute Lymphocyte Count 1.36 X10^3/uL (0.83-4.51); Basophil# 0.05 X10^3/uL; Basophil% 0.5 % (0-1); Eosinophil# 0.16 X10^3/uL; Eosinophils% 1.5 % (0-5); Hematocrit 41.6 % (40-54); Hemoglobin 12.5 g/dL (13.0-16.5); Lymphocyte # 1.36 X10^3/ul (0.83-4.51); Mean Corpuscular Hgb 28.7 pg (27.0-32.0); Mean Corpuscular Volume 95.6 fL (80-94); Mean Platelet Vol. 13.5 fl (6.2-12.0); Monocyte# 0.76 X10^3/uL; Monocyte% 7.3 % (0-10); NRBC Flagged by Analyzer 0 % (0-5); Neutrophil % 76.5 % (47-70); Platelet Count 151 K/mm3 (150-450); RBC Distribution Width CV 14.9 % (11.6-14.6); RBC Distribution Width SD 52.9 fl (35.1-43.9); Red Blood Count 4.35 M/mm3 (4.6-6.2); White Blood Count 10.5 K/mm3 (4.4-11.0)
[2020-08-29] MEDS: Insulin Lispro 100 UNIT/ML INSULN.PEN SC ×4 (06:34→21:01)
[2020-08-29 06:41] LABS: Bedside Glucose 172 mg/dL (70-110)
[2020-08-29 06:55] LABS: Anion Gap 12 (5-15); BUN 92 mg/dL (7-18); BUN/Creat Ratio 15.9 RATIO (10-20); Chloride 122 mmol/L (98-107); EST Glomerular Filtration Rate 11 mL/min (>60); Est Glom Filt Rate - Afr Amer 13 mL/min (>60); Estimated Creatinine Clearance 13.94 ml/min; Glucose 135 mg/dL (74-106); Potassium 6.1 mmol/L (3.5-5.1); Sodium Level 143 mmol/L (136-145)
--- NOTE | 2020-08-29 07:35 | PN.HOSP_ITS ---
Subjective Subjective Patient seen and examined. He feels well today and has no complaints. Review of systems is otherwise negative. He has remained hemodynamically stable. Bicarb is down to 6 today and creatinine is down to 5.8. Objective Data Objective Data Vital Signs: Vital Signs Temp Pulse Resp BP Pulse Ox 98.7 F 83 20 H 126/76 H 97 08/29/20 03:30 08/29/20 03:30 08/29/20 03:30 08/29/20 03:30 08/29/20 03:30 Oxygen Delivery Method Room Air Weight: 205 lb 0.478 oz Body Mass Index (BMI) 27.8 Intake & Output: Intake and Output for Last 24 Hours 08/27/20 08/28/20 08/29/20 23:59 23:59 23:59 Intake Total 2473.34 / 2873.34 3940.00 / 4060.00 1246.67 / 1246.67 Output Total 450 / 450 Balance 2473.34 / 2873.34 3490.00 / 3610.00 1246.67 / 1246.67 Lab / Micro Data Result Diagrams: 08/30/20 05:47 08/30/20 05:47 Labs: Laboratory Results - last 24 hr 08/28/20 08/28/20 08/28/20 13:20 17:09 21:07 WBC RBC Hgb Hct MCV MCH MCHC RDW Std Deviation RDW Coeff of Joana Plt Count MPV Immature Gran % (Auto) Neut % (Auto) Lymph % (Auto) [place] % (Auto) Eos % (Auto) Baso % (Auto) Absolute Neuts (auto) Absolute Lymphs (auto) Nucleated RBC % Sodium Potassium Chloride Carbon Dioxide Anion Gap BUN Creatinine Estim Creat Clear Calc Est GFR (MDRD) Af Amer Est GFR (MDRD) Non-Af BUN/Creatinine Ratio Glucose Calcium POC Glucose 165 H 147 H 170 H 08/29/20 08/29/20 08/29/20 06:14 06:14 06:32 WBC 10.5 RBC 4.35 L Hgb 12.5 L Hct 41.6 MCV 95.6 H MCH 28.7 MCHC 30.0 L RDW Std Deviation 52.9 H RDW Coeff of Joana 14.9 H Plt Count 151 MPV 13.5 H Immature Gran % (Auto) 1.200 H Neut % (Auto) 76.5 H Lymph % (Auto) 13.0 L [place] % (Auto) 7.3 Eos % (Auto) 1.5 Baso % (Auto) 0.5 Absolute Neuts (auto) 8.0 H Absolute Lymphs (auto) 1.36 Nucleated RBC % 0 Sodium 143 Potassium 6.1 H* Chloride 122 H Carbon Dioxide 9.0 L* Anion Gap 12 BUN 92 H Creatinine 5.80 H Estim Creat Clear Calc 13.94 Est GFR (MDRD) Af Amer 13 L Est GFR (MDRD) Non-Af 11 L BUN/Creatinine Ratio 15.9 Glucose 135 H Calcium 8.0 L POC Glucose 172 H Physical Exam Const alert, oriented x3 and no apparent distress General Appearance: cooperative Exam Limitations: no limitations HEENT normocephalic, head/scalp atraumatic and moist oral mucous membranes Eyes PERRL, EOMs intact bilaterally and conjunctivae normal Neck no lymphadenopathy, supple and no JVD Resp normal respiratory effort, no retractions, no use of accessory muscles and clear to auscultation bilaterally Auscultation: Negative for crackles, rales, rhonchi or wheezes Cardio regular rate, regular rhythm, S1 normal heart sound, S2 normal heart sound and no murmurs GI normal to inspection, nondistended, normoactive bowel sounds, soft to palpation, non-tender and non-distended; Negative for hepatosplenomegaly Extremity normal to inspection, full ROM and no clubbing, cyanosis or edema Peripheral Pulses: Yes pulses 2+ throughout Skin no rashes or lesions noted Neuro oriented x3, no focal motor deficits and no sensory deficits noted Sensorium / Orientation: awake and alert Psych affect normal Appearance: appropriate Assessment & Plan Assessment/Plan (1) Acute hyperkalemia: PLAN: #HYperkalemia * K is 6.1 today * patient still refuses dialysis for CKD * will give another dose of sodium Kayexalate 30 mg x 1. * Trend potassium levels. * #NICK on CKD stage IV: Patient still refuses dialysis. Continue gentle hydration with IV fluids. Cr is 5.86. Nephrology on board. #Non-anion gap metabolic acidosis * bicarb is down to 6 today. Was started on bicarb drip yesterday * nephrology on board; await further rec's. * #Diarrhea: Resolved. He states his diarrhea is much better today. #Paroxysmal afib: on amiodarone. #Peripheral artery disease: on pletal, plavix and statin. also on imdur #Hypertension: metoprolol. #Hypothyroidism: on synthroid. #Type diabetes mellitus * on lantus 15 units daily. ISS. Accuchecks ACHS * DVT prophylaxis: heparin Charges/Coding Visit Charges Inpatient E&M: 01480 [facility] Hosp L3
[2020-08-29] MEDS: Sodium Polystyrene Sulfonate 15 GM/60 ML UDC 30 GM PO (08:16)
[2020-08-29] MEDS: Isosorbide Mononitrate 30 MG Tablet PO (08:17)
[2020-08-29] MEDS: Clopidogrel Bisulfate 75 MG Tablet PO (08:17)
[2020-08-29] MEDS: Ferrous Sulfate 325 MG Tablet PO (08:17)
[2020-08-29] MEDS: Escitalopram Oxalate 20 MG Tablet PO (08:17)
[2020-08-29] MEDS: Amiodarone 200 MG Tablet PO (08:17)
[2020-08-29] MEDS: Pantoprazole Sodium 40 MG Tablet PO (08:18)
[2020-08-29] MEDS: Allopurinol 300 MG Tablet PO (08:18)
[2020-08-29] MEDS: Finasteride 5 MG Tablet PO (08:18)
[2020-08-29] MEDS: Metoprolol(XL)Succ 50 MG Tablet PO (08:18)
--- NOTE | 2020-08-29 09:58 | CON.PCM.RE_ITS ---
Assessment & Plan Assessment/Plan (1) Acute on chronic kidney failure: PLAN: due to diarrhea, dehydration. Creatinine 7.4 on admit to 5.8 today with iv hydration. Declined dialysis in the past but take into consideration now. Check 24h urine. If hyperkalemia, severe metabolic acidosis persists or does not correct with medical intervention may need to initiate dialysis. Discussed with pt and hospitalist. Answered all his questions to his satisfaction. (2) DM type 2 causing CKD stage 4: PLAN: baseline creatinine mid 3's (3) Acute hyperkalemia: PLAN: due to severe metabolic acidosis from GI loss (4) Diarrhea: PLAN: persistent 7-8x/day. Change imodium to lomotil. (5) Essential (primary) hypertension: (6) Metabolic acidosis: PLAN: continue bicarb supplement through iv. Increase iv rate to 150cc/hr. ISAMAR hospitalist HPI Consult Data Date of Consult: 08/29/20 HPI Narrative HPI Narrative: BARI KELLY, is a 64 M with CKD stage 4 due to diabetes, chronic diarrhea with metabolic acidosis, hx hyperkalemia with NICK from dehydration admitted for generalized weakness, nausea on 08/26/20. He was found to be hyperkalemic with severe metabolic acidosis. He complained of diarrhea 7-8 times a day watery stool without blood for 2 weeks prior. He went in for CXR for pulmonary but felt too weak so went to ER. Currently continues to have frequent diarrhea. Nausea resolved. Denies change in urine output. Urine volumes low or incomplete. Creatinine on admit 7.46 improved to 5.8 today with iv fluids. Started on bicarbonate drip last night after consulted for persistent metabolic acidosis. Pt has declined on dialysis in the past but now is reconsidering if needed. Answered all his questions he had about dialysis. He has no access since he has declined dialysis in the past. [facility] Medical History (Updated 08/29/20 @ 12:[address] Daysi Magana DO) Acute exacerbation of chronic obstructive pulmonary disease (COPD) Acute renal failure superimposed on stage 3 chronic kidney disease Acute renal failure superimposed on stage 4 chronic kidney disease Acute respiratory failure with hypoxemia Anemia of chronic renal failure Anxiety Atherosclerosis of coronary artery of [place] without angina pectoris C. difficile colitis Cancer Cholelithiasis Chronic hypoxemic respiratory failure Colon cancer Colon cancer COPD (chronic obstructive pulmonary disease) Depression Diabetes Diabetes mellitus type 2 in obese Essential (primary) hypertension Gastroenteritis Gout Heme + stool Hemorrhoids Hyperkalemia, diminished renal excretion Hyperlipidemia Hyponatremia Hypotension, unspecified Increased PTH level Infectious encephalopathy Influenza B Iron deficiency anemia Kidney disease Low vitamin D level Lower GI bleed Metabolic acidosis Metabolic acidosis Myocardial infarct Nicotine dependence, cigarettes, in remission Nocturnal hypoxia Non-STEMI (non-ST elevated myocardial infarction) Noncompliance with CPAP treatment NSAID long-term use NSTEMI (non-ST elevated myocardial infarction) (07/2018) NSVT (nonsustained ventricular tachycardia) LADARIUS (obstructive sleep apnea) Paroxysmal atrial fibrillation Peripheral vascular disease Pseudomembranous enterocolitis Radiculopathy affecting upper extremity Septic shock Severe sepsis Severe sepsis Sleep apnea Smoker Stage 3 severe COPD by GOLD classification Streptococcal pneumonia Uremia of renal origin Urinary retention due to benign prostatic hyperplasia Home Medications nitroglycerin 0.4 mg SUBLINGUAL Q5M PRN 05/14/17 [History Last Taken Unknown] oxycodone 5 mg PO BID PRN PRN 05/14/17 [History Last Taken 08/26/20] allopurinol 300 mg PO DAILY 09/15/17 [History Last Taken 08/26/20 08:00] finasteride 5 mg PO DAILY 09/15/17 [History Last Taken 08/26/20] isosorbide mononitrate 30 mg PO DAILY 09/15/17 [History Last Taken 08/26/20] metoprolol succinate 50 mg PO DAILY 09/15/17 [History Last Taken 08/26/20] albuterol sulfate 1 - 2 puff INHALATION Q4H PRN PRN 05/12/18 [History Last Taken 12/05/19] diazepam 5 mg PO BID PRN 05/12/18 [History Last Taken 08/26/20] insulin aspart U-100 5 units SC TIDCM #0 05/16/18 [Rx Last Taken 12/07/19] clopidogrel 75 mg PO DAILY 08/04/18 [History Last Taken 08/26/20] cholecalciferol (vitamin D3) 50 mcg (2,000 unit) capsule 2,000 mcg PO DAILY #90 cap 02/19/19 [History Last Taken 08/26/20] cilostazol 100 mg tablet 100 mg PO QHS tab 09/30/19 [History Last Taken 08/25/20] escitalopram oxalate 20 mg tablet 20 mg PO DAILY 09/30/19 [History Last Taken 08/26/20] ferrous sulfate 325 mg (65 mg iron) tablet 325 mg PO DAILY tab 09/30/19 [History Last Taken 08/26/20] ipratropium 0.5 mg-albuterol 3 mg (2.5 mg base)/3 mL nebulization soln 3 ml INHALATION Q4H PRN ml 09/30/19 [History Last Taken 12/07/19] loperamide 2 mg capsule 2 mg PO Q4H PRN PRN cap 09/30/19 [History Last Taken 12/07/19] rosuvastatin 10 mg tablet 10 mg PO DAILY #90 tab 09/30/19 [History Last Taken 08/25/20] amiodarone 200 mg PO DAILY 12/07/19 [History Last Taken 08/26/20] levothyroxine 88 mcg PO DAILY 12/07/19 [History Last Taken 08/26/20] sodium bicarbonate 650 mg PO BID 12/07/19 [History Last Taken 08/26/20] umeclidinium 62.5 mcg-vilanterol 25 mcg/actuation powdr for inhalation 1 inh INHALATION Q24H #60 ea 08/23/20 [Rx Last Taken Unknown] insulin degludec [Tresiba U-100 Insulin] 30 unit SUBCUT DAILY 08/26/20 [History Last Taken 08/26/20] pantoprazole 40 mg PO DAILY 08/26/20 [History Last Taken 08/26/20] Allergy/AdvReac Type Severity Reaction Status Date / Time No Known Allergies Allergy Verified 08/23/20 11:01 Family History Father Leukemia Mother COPD (chronic obstructive pulmonary disease) Surgical History (Updated 08/26/20 @ 17:19 by Jill Rowland) H/O colectomy H/O pneumonectomy History of coronary artery stent placement (05/18/03) History of left heart catheterization (11/27/09) Hx of craniotomy Status post colon resection Status post insertion of dialysis catheter (07/2018) Social History household members: spouse housing: other details: mobile home current occupational status: disabled pets and animals: Yes pets and animals: dog(s) Smoking Status: Current every day smoker tobacco type: cigarettes Tobacco: How many years used: 40 second hand exposure: No alcohol intake: never substance use type: does not use ROS Constitutional Constitutional: Reports weakness; Denies chills or fever(s) Eyes Eyes: Denies loss of vision ENT HEENT: Reports dry mouth Cardiovascular Cardiovascular: Denies chest pain, irregular heart rhythm, palpitations or syncope Respiratory/Chest Respiratory/Chest: Denies dyspnea on exertion Gastrointestinal Gastrointestinal: Reports diarrhea and nausea; Denies vomiting Genitourinary Genitourinary: Reports other Details: denied drop in urine output at home Musculoskeletal Musculoskeletal: Reports other Details: gen weakness Integumentary Integumentary: Denies rash Neurologic Neurologic: Reports weakness; Denies focal weakness, frequent falls or syncope Psychiatric Psychiatric: Denies anxiety or depression Endocrine Endocrinology: Reports fatigue Hematologic/Lymphatic Hematologic/Lymphatic: Denies easy bruising Physical Exam Const alert, oriented x3 and no apparent distress Neck supple and no JVD Resp clear to auscultation bilaterally Auscultation: diminished lung sounds Cardio regular rate GI non-tender and non-distended Palpation: soft no CVA tenderness Narrative: no hematuria Extremity full ROM and no clubbing, cyanosis or edema Skin no wounds Neuro CN's II-XII intact bilaterally and moves all extremities Sensorium / Orientation: awake and alert Motor Exam: no tremor Psych cooperative Lab / Micro Data Result Diagrams: 08/29/20 06:14 08/29/20 06:14 Labs: Laboratory Results - last 24 hr 08/28/20 08/28/20 08/28/20 13:20 17:09 21:07 WBC RBC Hgb Hct MCV MCH MCHC RDW Std Deviation RDW Coeff of Joana Plt Count MPV Immature Gran % (Auto) Neut % (Auto) Lymph % (Auto) [place] % (Auto) Eos % (Auto) Baso % (Auto) Absolute Neuts (auto) Absolute Lymphs (auto) Nucleated RBC % Sodium Potassium Chloride Carbon Dioxide Anion Gap BUN Creatinine Estim Creat Clear Calc Est GFR (MDRD) Af Amer Est GFR (MDRD) Non-Af BUN/Creatinine Ratio Glucose Calcium POC Glucose 165 H 147 H 170 H 08/29/20 08/29/20 08/29/20 06:14 06:14 06:32 WBC 10.5 RBC 4.35 L Hgb 12.5 L Hct 41.6 MCV 95.6 H MCH 28.7 MCHC 30.0 L RDW Std Deviation 52.9 H RDW Coeff of Joana 14.9 H Plt Count 151 MPV 13.5 H Immature Gran % (Auto) 1.200 H Neut % (Auto) 76.5 H Lymph % (Auto) 13.0 L [place] % (Auto) 7.3 Eos % (Auto) 1.5 Baso % (Auto) 0.5 Absolute Neuts (auto) 8.0 H Absolute Lymphs (auto) 1.36 Nucleated RBC % 0 Sodium 143 Potassium 6.1 H* Chloride 122 H Carbon Dioxide 9.0 L* Anion Gap 12 BUN 92 H Creatinine 5.80 H Estim Creat Clear Calc 13.94 Est GFR (MDRD) Af Amer 13 L Est GFR (MDRD) Non-Af 11 L BUN/Creatinine Ratio 15.9 Glucose 135 H Calcium 8.0 L POC Glucose 172 H
[2020-08-29] MEDS: Sodium Bicarbonate 8.4% 50 ML Syringe 50 MEQ IV (10:19)
--- NOTE | 2020-08-29 11:48 | NURSING ---
RNCM Note: Palliative Screening Tool completed per [facility] guidelines d/t Lace score. Patient met Palliative Referral Criteria- Dr Howe informed and declined referral at this time. Rahat Zazueta RNCM
[2020-08-29 12:10] LABS: Bedside Glucose 221 mg/dL (70-110)
[2020-08-29 17:06] LABS: Bedside Glucose 169 mg/dL (70-110)
[2020-08-29] MEDS: Ipratropium/Albuterol Sulfate 3 ML AMPUL.NEB INHALATION (20:05)
[2020-08-29] MEDS: Atorvastatin Calcium 20 MG Tablet PO (20:58)
[2020-08-29] MEDS: Cilostazol 50 MG Tablet 100 MG PO (20:58)
[2020-08-29 21:21] LABS: Bedside Glucose 165 mg/dL (70-110)
[2020-08-30] VITALS (9 sets, daily range): BP systolic 104–151; BP diastolic 61–87; PULSE 73–89; RESP 16–18; TEMP 36.3–37; O2SAT 94–96
[2020-08-30] MEDS: Levothyroxine 88 MCG Tablet PO (05:37)
[2020-08-30] MEDS: Heparin Injection (Vial) 5,000 UNIT/ML VIAL 5000 UNIT SC ×3 (05:37→22:35)
[2020-08-30 06:26] LABS: Absolute Lymphocyte Count 1.45 X10^3/uL (0.83-4.51); Absolute Neutrophil Count 4.7 X10^3/uL (2.0-7.7); Basophil# 0.04 X10^3/uL; Basophil% 0.6 % (0-1); Eosinophil# 0.23 X10^3/uL; Eosinophils% 3.2 % (0-5); Hematocrit 31.8 % (40-54); Hemoglobin 10.5 g/dL (13.0-16.5); Lymphocyte # 1.45 X10^3/ul (0.83-4.51); Lymphocyte % 20.4 % (19-41); Mean Corpuscular Hgb 29.2 pg (27.0-32.0); Mean Corpuscular Volume 88.3 fL (80-94); Mean Platelet Vol. 13.5 fl (6.2-12.0); Monocyte# 0.62 X10^3/uL; Monocyte% 8.7 % (0-10); NRBC Flagged by Analyzer 0 % (0-5); Neutrophil # 4.72 X10^3/uL (2.7-7.7); Neutrophil % 66.3 % (47-70); Platelet Count 133 K/mm3 (150-450); RBC Distribution Width CV 14.8 % (11.6-14.6); RBC Distribution Width SD 47.6 fl (35.1-43.9); White Blood Count 7.1 K/mm3 (4.4-11.0)
[2020-08-30] MEDS: Insulin Lispro 100 UNIT/ML INSULN.PEN SC ×4 (06:48→22:34)
[2020-08-30 06:56] LABS: Bedside Glucose 175 mg/dL (70-110)
[2020-08-30 06:57] LABS: Anion Gap 9 (5-15); BUN 75 mg/dL (7-18); BUN/Creat Ratio 17.8 RATIO (10-20); Chloride 114 mmol/L (98-107); Creatinine, Serum 4.21 mg/dL (0.70-1.30); EST Glomerular Filtration Rate 15 mL/min (>60); Est Glom Filt Rate - Afr Amer 18 mL/min (>60); Glucose 183 mg/dL (74-106); Potassium 3.7 mmol/L (3.5-5.1); Sodium Level 140 mmol/L (136-145)
--- NOTE | 2020-08-30 08:53 | PCM.PN.REN ---
Subjective Subjective diarrhea improved on lomotil. Electrolytes improved, renal fxn improving. 24h urine pending. Underlying diabetic nephropathy with proteinuria. ACEI/ARB held due to hyperkalemia and renal failure from chronic diarrhea. Appetite better Objective Data Objective Data Vital Signs: Vital Signs Temp Pulse Resp BP Pulse Ox 97.3 F L 75 16 133/87 H 95 08/30/20 03:15 08/30/20 07:00 08/30/20 03:15 08/30/20 03:15 08/30/20 03:15 Oxygen Delivery Method Room Air Weight: 93 kg Body Mass Index (BMI) 27.8 Intake & Output: Intake and Output for Last 24 Hours 08/28/20 08/29/20 08/30/20 23:59 23:59 23:59 Intake Total 3940.00 / 4060.00 3686.67 / 3806.67 1257.5 / 1257.5 Output Total 450 / 450 400 / 400 Balance 3490.00 / 3610.00 3286.67 / 3406.67 1257.5 / 1257.5 Lab / Micro Data Result Diagrams: 08/30/20 05:47 08/30/20 05:47 Labs: Laboratory Results - last 24 hr 08/29/20 08/29/20 08/29/20 11:59 16:58 21:01 WBC RBC Hgb Hct MCV MCH MCHC RDW Std Deviation RDW Coeff of Joana Plt Count MPV Immature Gran % (Auto) Neut % (Auto) Lymph % (Auto) [place] % (Auto) Eos % (Auto) Baso % (Auto) Absolute Neuts (auto) Absolute Lymphs (auto) Nucleated RBC % Sodium Potassium Chloride Carbon Dioxide Anion Gap BUN Creatinine Estim Creat Clear Calc Est GFR (MDRD) Af Amer Est GFR (MDRD) Non-Af BUN/Creatinine Ratio Glucose Calcium POC Glucose 221 H 169 H 165 H 08/30/20 08/30/20 08/30/20 05:47 05:47 06:47 WBC 7.1 RBC 3.60 L Hgb 10.5 L Hct 31.8 L MCV 88.3 D MCH 29.2 MCHC 33.0 D RDW Std Deviation 47.6 H RDW Coeff of Joana 14.8 H Plt Count 133 L MPV 13.5 H Immature Gran % (Auto) 0.800 Neut % (Auto) 66.3 Lymph % (Auto) 20.4 [place] % (Auto) 8.7 Eos % (Auto) 3.2 Baso % (Auto) 0.6 Absolute Neuts (auto) 4.7 Absolute Lymphs (auto) 1.45 Nucleated RBC % 0 Sodium 140 Potassium 3.7 Chloride 114 H Carbon Dioxide 17.0 L Anion Gap 9 BUN 75 H Creatinine 4.21 H Estim Creat Clear Calc 19.20 Est GFR (MDRD) Af Amer 18 L Est GFR (MDRD) Non-Af 15 L BUN/Creatinine Ratio 17.8 Glucose 183 H Calcium 8.0 L POC Glucose 175 H Physical Exam Const alert and oriented x3 Resp Auscultation: diminished lung sounds Cardio regular rate GI non-tender and non-distended Palpation: soft Extremity no clubbing, cyanosis or edema Neuro Motor Exam: no tremor Assessment & Plan Assessment/Plan (1) Acute on chronic kidney failure: PLAN: due to diarrhea, dehydration. Creatinine improved today, close to baseline. Await 24h urine. Still deciding on whether he would consider chronic dialysis. No urgency for dialysis. Need to control underlying problem to prevent NICK which is his chronic diarrhea. (2) DM type 2 causing CKD stage 4: PLAN: baseline creatinine mid 3's (3) Acute hyperkalemia: PLAN: due to severe metabolic acidosis from GI loss resolved (4) Diarrhea: PLAN: improved on lomotil. (5) Essential (primary) hypertension: (6) Metabolic acidosis: PLAN: improved with Increase iv rate to 150cc/hr and decreased diarrhea
[2020-08-30] MEDS: Metoprolol(XL)Succ 50 MG Tablet PO (09:16)
[2020-08-30] MEDS: Ferrous Sulfate 325 MG Tablet PO (09:16)
[2020-08-30] MEDS: Isosorbide Mononitrate 30 MG Tablet PO (09:16)
[2020-08-30] MEDS: Clopidogrel Bisulfate 75 MG Tablet PO (09:16)
[2020-08-30] MEDS: Pantoprazole Sodium 40 MG Tablet PO (09:16)
[2020-08-30] MEDS: Escitalopram Oxalate 20 MG Tablet PO (09:16)
[2020-08-30] MEDS: Finasteride 5 MG Tablet PO (09:16)
[2020-08-30] MEDS: Amiodarone 200 MG Tablet PO (09:16)
[2020-08-30] MEDS: Allopurinol 300 MG Tablet PO (09:16)
[2020-08-30 11:35] LABS: Bedside Glucose 195 mg/dL (70-110)
--- NOTE | 2020-08-30 12:00 | PN.HOSP_ITS ---
Subjective Subjective Patient seen and examined. He has no complaints today and feels well. Review of systems otherwise negative. Bicarb is up to 17 today and creatinine is down to 4.21. Objective Data Objective Data Vital Signs: Vital Signs Temp Pulse Resp BP Pulse Ox 98.5 F 74 18 115/64 94 08/30/20 09:15 08/30/20 09:16 08/30/20 09:15 08/30/20 09:15 08/30/20 09:15 Oxygen Delivery Method Room Air Weight: 205 lb 0.478 oz Body Mass Index (BMI) 27.8 Intake & Output: Intake and Output for Last 24 Hours 08/28/20 08/29/20 08/30/20 23:59 23:59 23:59 Intake Total 3940.00 / 4060.00 3686.67 / 3806.67 1257.5 / 1257.5 Output Total 450 / 450 400 / 400 Balance 3490.00 / 3610.00 3286.67 / 3406.67 1257.5 / 1257.5 Lab / Micro Data Result Diagrams: 08/30/20 05:47 08/30/20 05:47 Labs: Laboratory Results - last 24 hr 08/29/20 08/29/20 08/29/20 11:59 16:58 21:01 WBC RBC Hgb Hct MCV MCH MCHC RDW Std Deviation RDW Coeff of Joana Plt Count MPV Immature Gran % (Auto) Neut % (Auto) Lymph % (Auto) [place] % (Auto) Eos % (Auto) Baso % (Auto) Absolute Neuts (auto) Absolute Lymphs (auto) Nucleated RBC % Sodium Potassium Chloride Carbon Dioxide Anion Gap BUN Creatinine Estim Creat Clear Calc Est GFR (MDRD) Af Amer Est GFR (MDRD) Non-Af BUN/Creatinine Ratio Glucose Calcium POC Glucose 221 H 169 H 165 H 08/30/20 08/30/20 08/30/20 05:47 05:47 06:47 WBC 7.1 RBC 3.60 L Hgb 10.5 L Hct 31.8 L MCV 88.3 D MCH 29.2 MCHC 33.0 D RDW Std Deviation 47.6 H RDW Coeff of Joana 14.8 H Plt Count 133 L MPV 13.5 H Immature Gran % (Auto) 0.800 Neut % (Auto) 66.3 Lymph % (Auto) 20.4 [place] % (Auto) 8.7 Eos % (Auto) 3.2 Baso % (Auto) 0.6 Absolute Neuts (auto) 4.7 Absolute Lymphs (auto) 1.45 Nucleated RBC % 0 Sodium 140 Potassium 3.7 Chloride 114 H Carbon Dioxide 17.0 L Anion Gap 9 BUN 75 H Creatinine 4.21 H Estim Creat Clear Calc 19.20 Est GFR (MDRD) Af Amer 18 L Est GFR (MDRD) Non-Af 15 L BUN/Creatinine Ratio 17.8 Glucose 183 H Calcium 8.0 L POC Glucose 175 H 08/30/20 11:26 WBC RBC Hgb Hct MCV MCH MCHC RDW Std Deviation RDW Coeff of Joana Plt Count MPV Immature Gran % (Auto) Neut % (Auto) Lymph % (Auto) [place] % (Auto) Eos % (Auto) Baso % (Auto) Absolute Neuts (auto) Absolute Lymphs (auto) Nucleated RBC % Sodium Potassium Chloride Carbon Dioxide Anion Gap BUN Creatinine Estim Creat Clear Calc Est GFR (MDRD) Af Amer Est GFR (MDRD) Non-Af BUN/Creatinine Ratio Glucose Calcium POC Glucose 195 H Physical Exam Const alert, oriented x3 and no apparent distress General Appearance: cooperative Exam Limitations: no limitations HEENT normocephalic, head/scalp atraumatic and moist oral mucous membranes Eyes PERRL, EOMs intact bilaterally and conjunctivae normal Neck no lymphadenopathy, supple and no JVD Resp normal respiratory effort, no retractions, no use of accessory muscles and clear to auscultation bilaterally Auscultation: Negative for crackles, rales, rhonchi or wheezes Cardio regular rate, regular rhythm, S1 normal heart sound, S2 normal heart sound and no murmurs GI normal to inspection, nondistended, normoactive bowel sounds, soft to palpation, non-tender and non-distended; Negative for hepatosplenomegaly Extremity normal to inspection, full ROM and no clubbing, cyanosis or edema Skin no rashes or lesions noted Neuro oriented x3, no focal motor deficits and no sensory deficits noted Sensorium / Orientation: awake and alert Psych affect normal Appearance: appropriate Assessment & Plan Assessment/Plan (1) Acute hyperkalemia: PLAN: #HYperkalemia * K is down to 3.7 today * Trend potassium levels. * nephrology on board * #NICK on CKD stage IV: * Patient now says he is thinking of dialysis . Continue gentle hydration with IV fluids. Cr is down to 4.21 today. Nephrology on board. #Non-anion gap metabolic acidosis * bicarb is up to 17 today. on bicarb drip. * nephrology on board; transition to oral bicarb tid. * #Diarrhea: still having persistent diarrhea which is chronic. Will need follow up with gastroenterology on outpatient basis. #Paroxysmal afib: on amiodarone. #Peripheral artery disease: on pletal, plavix and statin. also on imdur #Hypertension: metoprolol. #Hypothyroidism: on synthroid. #Type diabetes mellitus * on lantus 15 units daily. ISS. Accuchecks ACHS * DVT prophylaxis: heparin Disposition: for likely DC home tomorrow. Charges/Coding Visit Charges Inpatient E&M: 54052 Subs Hosp L2
[2020-08-30 16:50] LABS: Bedside Glucose 206 mg/dL (70-110)
[2020-08-30 18:33] LABS: 24HR. UA Prot. Total Volume 1450 mL; Creat.Clear Total Volume 1450 mL; Creatinine Clearance 23 ml/min (100-200); Creatinine Serum Creat 4.2 mg/dL (0.8-1.3); Creatinine Urine 94.3 mg/dL (NO RANGE EST.); EST Glomerular Filtration Rate 15 mL/min (>60); Est Glom Filt Rate - Afr Amer 18 mL/min (>60)
[2020-08-30 21:34] LABS: Urine Sodium 34 mmol/L (Not Establ.)
[2020-08-30] MEDS: Atorvastatin Calcium 20 MG Tablet PO (22:35)
[2020-08-30] MEDS: Cilostazol 50 MG Tablet 100 MG PO (22:36)
[2020-08-30 22:46] LABS: Bedside Glucose 214 mg/dL (70-110)
[2020-08-31 02:43] VITALS: BP 110/65; PULSE 85; RESP 20; TEMP 36.9; O2SAT 93
[2020-08-31 03:00] VITALS: PULSE 81
[2020-08-31 05:23] LABS: Absolute Lymphocyte Count 1.16 X10^3/uL (0.83-4.51); Absolute Neutrophil Count 5.6 X10^3/uL (2.0-7.7); Basophil# 0.03 X10^3/uL; Basophil% 0.4 % (0-1); Eosinophil# 0.24 X10^3/uL; Hematocrit 31.7 % (40-54); Hemoglobin 10.6 g/dL (13.0-16.5); Lymphocyte # 1.16 X10^3/ul (0.83-4.51); Lymphocyte % 14.5 % (19-41); Mean Corp Hgb Conc 33.4 g/dL (32-36); Mean Corpuscular Hgb 29.1 pg (27.0-32.0); Mean Corpuscular Volume 87.1 fL (80-94); Mean Platelet Vol. 12.8 fl (6.2-12.0); Monocyte# 0.86 X10^3/uL; Monocyte% 10.8 % (0-10); NRBC Flagged by Analyzer 0 % (0-5); Neutrophil # 5.61 X10^3/uL (2.7-7.7); Neutrophil % 70.3 % (47-70); Platelet Count 157 K/mm3 (150-450); RBC Distribution Width CV 14.8 % (11.6-14.6); RBC Distribution Width SD 46.7 fl (35.1-43.9); Red Blood Count 3.64 M/mm3 (4.6-6.2)
[2020-08-31 05:42] LABS: Anion Gap 8 (5-15); BUN 68 mg/dL (7-18); BUN/Creat Ratio 19.3 RATIO (10-20); Calcium,Total 7.8 mg/dL (8.5-10.1); Chloride 109 mmol/L (98-107); Creatinine, Serum 3.53 mg/dL (0.70-1.30); EST Glomerular Filtration Rate 19 mL/min (>60); Est Glom Filt Rate - Afr Amer 23 mL/min (>60); Glucose 219 mg/dL (74-106); Potassium 3.6 mmol/L (3.5-5.1); Sodium Level 140 mmol/L (136-145)
[2020-08-31] MEDS: Levothyroxine 88 MCG Tablet PO (06:53)
[2020-08-31] MEDS: Insulin Lispro 100 UNIT/ML INSULN.PEN SC (06:53)
[2020-08-31] MEDS: Heparin Injection (Vial) 5,000 UNIT/ML VIAL 5000 UNIT SC (06:54)
[2020-08-31 06:55] VITALS: PULSE 86
[2020-08-31 07:16] LABS: Bedside Glucose 208 mg/dL (70-110)
[2020-08-31] MEDS: Ipratropium/Albuterol Sulfate 3 ML AMPUL.NEB INHALATION (07:59)
[2020-08-31 08:00] VITALS: PULSE 85; RESP 20
--- NOTE | 2020-08-31 09:30 | PCM.DC.SUM ---
Providers Date of Admission: 08/26/20 Primary Care Physician: Dr. Jonathan Baptiste DO Consultations 08/28/20 16:14 Consult: Nephrology Routine Consulting Provider: Daysi Magnaa Reason for Consult: non anion gap metabolic acidosis EMERGENT Consult: No MD Notified: Yes Date Notified: 08/28/20 Time Notified: 15:35 Method of Notification: Text Reason For Visit: ARF FROM GASTROENTERITIS WITH HYPERKALEMIA Diagnosis Discharge Diagnosis (1) Acute hyperkalemia: Status: Acute Code(s): E87.5 - Hyperkalemia Medications at Discharge Home Medications nitroglycerin 0.4 mg SUBLINGUAL Q5M PRN 05/14/17 oxycodone 5 mg PO BID PRN PRN 05/14/17 allopurinol 300 mg PO DAILY 09/15/17 finasteride 5 mg PO DAILY 09/15/17 isosorbide mononitrate 30 mg PO DAILY 09/15/17 metoprolol succinate 50 mg PO DAILY 09/15/17 albuterol sulfate 1 - 2 puff INHALATION Q4H PRN PRN 05/12/18 diazepam 5 mg PO BID PRN 05/12/18 insulin aspart U-100 5 units SC TIDCM #0 05/16/18 clopidogrel 75 mg PO DAILY 08/04/18 cholecalciferol (vitamin D3) 50 mcg (2,000 unit) capsule 2,000 mcg PO DAILY #90 cap 02/19/19 cilostazol 100 mg tablet 100 mg PO QHS tab 09/30/19 escitalopram oxalate 20 mg tablet 20 mg PO DAILY 09/30/19 ferrous sulfate 325 mg (65 mg iron) tablet 325 mg PO DAILY tab 09/30/19 ipratropium 0.5 mg-albuterol 3 mg (2.5 mg base)/3 mL nebulization soln 3 ml INHALATION Q4H PRN ml 09/30/19 loperamide 2 mg capsule 2 mg PO Q4H PRN PRN cap 09/30/19 rosuvastatin 10 mg tablet 10 mg PO DAILY #90 tab 09/30/19 amiodarone 200 mg PO DAILY 12/07/19 levothyroxine 88 mcg PO DAILY 12/07/19 sodium bicarbonate 650 mg PO BID 12/07/19 umeclidinium 62.5 mcg-vilanterol 25 mcg/actuation powdr for inhalation 1 inh INHALATION Q24H #60 ea 08/23/20 Tresiba U-100 Insulin 30 unit SUBCUT DAILY 08/26/20 pantoprazole 40 mg PO DAILY 08/26/20 sodium bicarbonate 650 mg PO TID #90 tab 08/31/20 Hospital Course Operations None Procedures None Summary of Care Provided Minutes Spent on Discharge: 40 Hospital Course: Patient is a 4-year-old male with a past medical history as outlined was admitted via the ED on 08/26/2020 with a complaint of nausea, vomiting and diarrhea. Patient has a history of chronic diarrhea and states had worsened over the 5 days prior to admission and he had associated vomiting. Patient also has a history of CKD stage IV and had refused considering dialysis. In the ER at admission, creatinine was elevated at over 7 with his baseline being around 3-4. He was also hyperkalemic with potassium of 6.5. He was admitted and managed for NICK on CKD stage IV with hyperkalemia as well as acute on chronic diarrhea. He was put on Kayexalate and hydrated with IV fluids. Patient also had non-anion gap metabolic acidosis on admission gradually worsened with bicarb falling to a sharonda of 6. Nephrology was consulted. Patient was started on bicarb drip which he tolerated. Diarrhea also improved slightly. Patient's creatinine trended down gradually was 3.56 on day of discharge which is around his baseline and hyperkalemia had also resolved with potassium being around 3.6 on day of discharge. Patient now said he was willing to consider dialysis in the future if he needed it. Patient was discharged home on 08/31/2020 with a prescription for p.o. sodium bicarbonate 650mg 3 times daily and is to follow-up with his primary care doctor and nephrology. Patient seen and examined prior to discharge. He had no complaints and felt well. Review of systems otherwise negative. Labs and vitals reviewed. Home medication reviewed and reconciled. Physical Exam Const alert, oriented x3 and no apparent distress General Appearance: cooperative and comfortable Exam Limitations: no limitations HEENT normocephalic, head/scalp atraumatic and moist oral mucous membranes Eyes PERRL, EOMs intact bilaterally and conjunctivae normal Neck no lymphadenopathy, supple and no JVD Resp normal respiratory effort, no retractions, no use of accessory muscles and clear to auscultation bilaterally Auscultation: Negative for crackles, rales, rhonchi or wheezes Cardio regular rate, regular rhythm, S1 normal heart sound, S2 normal heart sound and no murmurs GI normal to inspection, nondistended, normoactive bowel sounds, soft to palpation, non-tender and non-distended; Negative for hepatosplenomegaly Extremity normal to inspection, full ROM and no clubbing, cyanosis or edema Skin no rashes or lesions noted Neuro oriented x3, no focal motor deficits and no sensory deficits noted Sensorium / Orientation: awake and alert Psych affect normal Appearance: appropriate Weight / BMI Weight Weight: 205 lb 0.478 oz Body Mass Index (BMI) 27.8 ABG / Lab / Microbiology Data Result Diagrams: 08/31/20 04:44 08/31/20 04:44 Laboratory: Laboratory Results - last 24 hr 08/30/20 08/30/20 08/30/20 11:26 16:44 17:40 WBC RBC Hgb Hct MCV MCH MCHC RDW Std Deviation RDW Coeff of Joana Plt Count MPV Immature Gran % (Auto) Neut % (Auto) Lymph % (Auto) Republic % (Auto) Eos % (Auto) Baso % (Auto) Absolute Neuts (auto) Absolute Lymphs (auto) Nucleated RBC % Sodium Potassium Chloride Carbon Dioxide Anion Gap BUN Creatinine 4.2 H Estim Creat Clear Calc Est GFR (MDRD) Af Amer 18 L Est GFR (MDRD) Non-Af 15 L BUN/Creatinine Ratio Glucose Calcium Ur Random Sodium Urine Collection Time 24.0 Timed Urine Volume 1450 Urine Creatinine 94.3 Creatinine Clearance 23 L Ur Total Protein 24 Hr Urine Total Protein POC Glucose 195 H 206 H 08/30/20 08/30/20 08/30/20 17:40 21:00 22:33 WBC RBC Hgb Hct MCV MCH MCHC RDW Std Deviation RDW Coeff of Joana Plt Count MPV Immature Gran % (Auto) Neut % (Auto) Lymph % (Auto) Republic % (Auto) Eos % (Auto) Baso % (Auto) Absolute Neuts (auto) Absolute Lymphs (auto) Nucleated RBC % Sodium Potassium Chloride Carbon Dioxide Anion Gap BUN Creatinine Estim Creat Clear Calc Est GFR (MDRD) Af Amer Est GFR (MDRD) Non-Af BUN/Creatinine Ratio Glucose Calcium Ur Random Sodium 34 Urine Collection Time 24.0 Timed Urine Volume 1450 Urine Creatinine 106.00 Creatinine Clearance Ur Total Protein 24 Hr 1928.5 H Urine Total Protein 133.0 H POC Glucose 214 H 08/31/20 08/31/20 08/31/20 04:44 04:44 06:51 WBC 8.0 RBC 3.64 L Hgb 10.6 L Hct 31.7 L MCV 87.1 MCH 29.1 MCHC 33.4 RDW Std Deviation 46.7 H RDW Coeff of Joana 14.8 H Plt Count 157 MPV 12.8 H Immature Gran % (Auto) 1.000 H Neut % (Auto) 70.3 H Lymph % (Auto) 14.5 L Republic % (Auto) 10.8 H Eos % (Auto) 3.0 Baso % (Auto) 0.4 Absolute Neuts (auto) 5.6 Absolute Lymphs (auto) 1.16 Nucleated RBC % 0 Sodium 140 Potassium 3.6 Chloride 109 H Carbon Dioxide 23.0 Anion Gap 8 BUN 68 H Creatinine 3.53 H Estim Creat Clear Calc 22.90 Est GFR (MDRD) Af Amer 23 L Est GFR (MDRD) Non-Af 19 L BUN/Creatinine Ratio 19.3 Glucose 219 H Calcium 7.8 L Ur Random Sodium Urine Collection Time Timed Urine Volume Urine Creatinine Creatinine Clearance Ur Total Protein 24 Hr Urine Total Protein POC Glucose 208 H D/C Instructions Discharge Diet: Renal Diet Discharge Activity: Return to Normal Activity Weight Bearing Status: Weight bearing as tolerated Call your doctor if you observe: Fever of 101 or Higher, Inability to urinate, Shortness of breath, Swelling in the ankles and Chest pain Meaningful Use Info Meaningful Use Diagnoses (Choose all that apply): None applicable Discharge Plan Admission Admit Date/Time: 08/26/20 10:54 Primary Reason for Your Visit: NICK on CKD IV, hyperkalemia Attending Provider: Angeles Howe Primary Care Provider: Jonathan Baptiste Consulting Providers: Daysi Magana Instructions Patient Instructions: ED Chronic Kidney Disease (CKD), ED Diarrhea, Unknown Cause, ED Diet for Vomiting or Diarrhea Adult, ED Hyperkalemia Discharge Orders/Prescriptions Prescriptions: New sodium bicarbonate 650 mg tablet 650 mg PO TID Qty: 90 RF: 1 Continued cholecalciferol (vitamin D3) 50 mcg (2,000 unit) capsule 2,000 mcg PO DAILY Qty: 90 RF: 0 rosuvastatin 10 mg tablet 10 mg PO DAILY Qty: 90 RF: 0 loperamide 2 mg capsule 2 mg PO Q4H PRN PRN (Reason: Diarrhea) RF: 0 ipratropium-albuterol 0.5 mg-3 mg(2.5 mg base)/3 mL solution for nebulization 3 ml INHALATION Q4H PRN (Reason: shortness of breath or wheezing) RF: 0 escitalopram oxalate 20 mg tablet 20 mg PO DAILY RF: 0 Anoro Ellipta 62.5-25 mcg/actuation blister with device 1 inh inhalation Q24H Qty: 60 RF: 6 nitroglycerin 0.4 MG tablet 0.4 mg SUBLINGUAL Q5M PRN (Reason: Chest Pain) RF: 0 oxycodone 5 MG tablet 5 mg PO BID PRN PRN (Reason: Pain) RF: 0 allopurinol 300 MG tablet 300 mg PO DAILY RF: 0 finasteride 5 MG tablet 5 mg PO DAILY RF: 0 isosorbide mononitrate 30 MG tablet 30 mg PO DAILY RF: 0 metoprolol succinate 50 MG tablet 50 mg PO DAILY RF: 0 cilostazol 100 mg tablet 100 mg PO QHS RF: 0 albuterol sulfate 1 INHALER inhaler 1 - 2 puff inhalation Q4H PRN PRN (Reason: Wheezing) RF: 0 diazepam 5 MG tablet 5 mg PO BID PRN (Reason: anxiety) RF: 0 insulin aspart U-100 100 UNITS/ML insulin pen 5 units SC TIDCM Qty: 0 RF: 0 clopidogrel 75 MG tablet 75 mg PO DAILY RF: 0 ferrous sulfate 325 mg (65 mg iron) tablet 325 mg PO DAILY RF: 0 levothyroxine 88 MCG tablet 88 mcg PO DAILY RF: 0 amiodarone 200 MG tablet 200 mg PO DAILY RF: 0 sodium bicarbonate 650 MG tablet 650 mg PO BID RF: 0 pantoprazole 40 mg Tablet,Delayed Release (Dr/Ec) 40 mg PO DAILY RF: 0 Tresiba U-100 Insulin 100 unit/mL Solution 30 unit SUBCUT DAILY RF: 0 Referrals / Follow Up: Daysi Magana DO [STAFF PHYSICIAN] - Within 2 Weeks (call office for appointment) Jonathan Baptiste DO [Primary Care Provider] - Within 2 Weeks Dick Ashton MD [NON-STAFF] - Within 2 Weeks (call office for appointment to follow up on chronic diarrhea) Disposition Disposition (needs filled in before D/C Order can be placed): Home, self care Charges/Coding Visit Charges Inpatient E&M: 61372 Disch Hosp
[2020-08-31 09:43] VITALS: BP 113/64; PULSE 99; RESP 15; TEMP 37; O2SAT 96
[2020-08-31] MEDS: Clopidogrel Bisulfate 75 MG Tablet PO (09:44)
[2020-08-31] MEDS: Allopurinol 300 MG Tablet PO (09:44)
[2020-08-31] MEDS: Isosorbide Mononitrate 30 MG Tablet PO (09:44)
[2020-08-31] MEDS: Pantoprazole Sodium 40 MG Tablet PO (09:44)
[2020-08-31] MEDS: Ferrous Sulfate 325 MG Tablet PO (09:44)
[2020-08-31 09:45] VITALS: BP 113/64; PULSE 99
[2020-08-31] MEDS: Amiodarone 200 MG Tablet PO (09:45)
[2020-08-31] MEDS: Escitalopram Oxalate 20 MG Tablet PO (09:45)
[2020-08-31] MEDS: Metoprolol(XL)Succ 50 MG Tablet PO (09:45)
[2020-08-31] MEDS: Finasteride 5 MG Tablet PO (09:45)
--- NOTE | 2020-08-31 10:34 | PHA.DC.MC ---
Pharmacy Service has performed discharge medication reconciliation and counseling for this patient. The patient was counseled on the following discharge medications and changes in medications for homegoing were reviewed. 1. SODIUM BICARBONATE - DOSE CHANGE The Reason for Use, instructions for use, and potential side effects were reviewed for all new medications. The patient's questions regarding all of their medications were answered. The patient was able to verbally demonstrate an understanding of their discharge medications. Home Medications nitroglycerin 0.4 mg SUBLINGUAL Q5M PRN 05/14/17 oxycodone 5 mg PO BID PRN PRN 05/14/17 allopurinol 300 mg PO DAILY 09/15/17 finasteride 5 mg PO DAILY 09/15/17 isosorbide mononitrate 30 mg PO DAILY 09/15/17 metoprolol succinate 50 mg PO DAILY 09/15/17 albuterol sulfate 1 - 2 puff INHALATION Q4H PRN PRN 05/12/18 diazepam 5 mg PO BID PRN 05/12/18 insulin aspart U-100 5 units SC TIDCM #0 05/16/18 clopidogrel 75 mg PO DAILY 08/04/18 cholecalciferol (vitamin D3) 50 mcg (2,000 unit) capsule 2,000 mcg PO DAILY #90 cap 02/19/19 cilostazol 100 mg tablet 100 mg PO QHS tab 09/30/19 escitalopram oxalate 20 mg tablet 20 mg PO DAILY 09/30/19 ferrous sulfate 325 mg (65 mg iron) tablet 325 mg PO DAILY tab 09/30/19 ipratropium 0.5 mg-albuterol 3 mg (2.5 mg base)/3 mL nebulization soln 3 ml INHALATION Q4H PRN ml 09/30/19 loperamide 2 mg capsule 2 mg PO Q4H PRN PRN cap 09/30/19 rosuvastatin 10 mg tablet 10 mg PO DAILY #90 tab 09/30/19 amiodarone 200 mg PO DAILY 12/07/19 levothyroxine 88 mcg PO DAILY 12/07/19 Tresiba U-100 Insulin 30 unit SUBCUT DAILY 08/26/20 pantoprazole 40 mg PO DAILY 08/26/20 Anoro Ellipta 1 inh INHALATION Q24H 08/31/20 sodium bicarbonate 650 mg PO TID #90 tab 08/31/20 The patient's discharge medication list was reviewed for discrepancies and discrepancies were resolved.
--- NOTE | 2020-09-01 14:30 | CASEMGMT ---
RN CM Discharge Follow-Up Phone Call. Lace: 12 Strata: 3 Discharge Date: 08/31/20 Adm Dx: ARF from gastroenteritis w/hyperkalemia. Attempted discharge f/u phone call. No answer. Phone kept ringing and ringing. No VM came on. Attempted call again to ensure correct # was dialed. Phone rang a couple of times and then busy signal received. Unable to leave VM. Shirley FULTONN RN CM
== END 2020-08-31 11:41 | disposition home or self-care (01) | DRG 683 ==
LOC: ED 08:56 → PCU 11:11
PROVIDERS: Internal Medicine Nephrology; Admitting Provider Family Medicine; Emergency Provider Emergency Medicine; PCP Student in an Organized Health Care Education/Training Program; Visit Provider Student in an Organized Health Care Education/Training Program
DX: N17.9 Acute kidney failure, unspecified (principal); J96.11 Chronic respiratory failure with hypoxia; E87.2 Acidosis; E44.0 Moderate protein-calorie malnutrition; K52.9 Noninfective gastroenteritis and colitis, unspecified; N18.4 Chronic kidney disease, stage 4 (severe); I12.9 Hypertensive chronic kidney disease with stage 1 through stage 4 chronic kidney disease, or unspecified chronic kidney disease; E87.5 Hyperkalemia; I25.10 Atherosclerotic heart disease of native coronary artery without angina pectoris; D63.1 Anemia in chronic kidney disease; E11.22 Type 2 diabetes mellitus with diabetic chronic kidney disease; G47.33 Obstructive sleep apnea (adult) (pediatric); N40.1 Benign prostatic hyperplasia with lower urinary tract symptoms; R33.8 Other retention of urine; I48.0 Paroxysmal atrial fibrillation; E78.5 Hyperlipidemia, unspecified; J44.9 Chronic obstructive pulmonary disease, unspecified; F32.9 Major depressive disorder, single episode, unspecified; F41.9 Anxiety disorder, unspecified; E86.0 Dehydration; E11.51 Type 2 diabetes mellitus with diabetic peripheral angiopathy without gangrene; K21.9 Gastro-esophageal reflux disease without esophagitis; E03.9 Hypothyroidism, unspecified; M10.9 Gout, unspecified; F17.210 Nicotine dependence, cigarettes, uncomplicated; D50.9 Iron deficiency anemia, unspecified; I25.2 Old myocardial infarction; Z79.899 Other long term (current) drug therapy; Z79.02 Long term (current) use of antithrombotics/antiplatelets; Z79.4 Long term (current) use of insulin; Z68.27 Body mass index [BMI] 27.0-27.9, adult
CPT/HCPCS: 36415; 80048; 80053; 81050; 82570; 82575; 82962; 83735; 84100; 84156; 84300; 85025; 93005; 94640; 99284; 99406; J7030; A4216; J0610; J2405

== ENCOUNTER → 2020-09-07 11:17 | Outpatient (CLI) | payer MEDICARE, SELFPAY ==
[2020-03-01 14:12] VITALS: BMI 28.6
[2020-08-27 13:33] VITALS: BMI 27.8
[2020-09-07 13:04] LABS: Albumin, Serum 3.2 g/dL (3.2-5.0); BUN 45 mg/dL (7-18); Calcium,Total 8.9 mg/dL (8.5-10.1); Chloride 108 mmol/L (98-107); Creatinine, Serum 3.46 mg/dL (0.70-1.30); EST Glomerular Filtration Rate 19 mL/min (>60); Est Glom Filt Rate - Afr Amer 23 mL/min (>60); Glucose 199 mg/dL (74-106); Phosphorus 2.6 mg/dL (2.5-4.9); Potassium 5.4 mmol/L (3.5-5.1); Sodium Level 140 mmol/L (136-145)
== END ==
PROVIDERS: PCP Student in an Organized Health Care Education/Training Program; Visit Provider Internal Medicine Nephrology
DX: N18.4 Chronic kidney disease, stage 4 (severe) (principal)
CPT/HCPCS: 36415; 80069

== ENCOUNTER → 2020-11-17 12:48 | Outpatient (CLI) | payer MEDICARE, SELFPAY ==
[2020-08-27 13:33] VITALS: BMI 27.8
[2020-11-17 14:01] LABS: Albumin, Serum 3.4 g/dL (3.2-5.0); BUN 65 mg/dL (7-18); BUN/Creat Ratio 17.7 RATIO (10-20); Calcium,Total 8.6 mg/dL (8.5-10.1); Chloride 117 mmol/L (98-107); Creatinine, Serum 3.68 mg/dL (0.70-1.30); EST Glomerular Filtration Rate 18 mL/min (>60); Est Glom Filt Rate - Afr Amer 21 mL/min (>60); Glucose 169 mg/dL (74-106); Phosphorus 4.1 mg/dL (2.5-4.9); Sodium Level 140 mmol/L (136-145)
[2020-11-17 14:02] LABS: PTHIN 225.8 pg/mL (18.4-80.1)
== END ==
LOC: LAB 12:50
PROVIDERS: PCP Student in an Organized Health Care Education/Training Program; Referring Provider Internal Medicine Nephrology; Visit Provider Internal Medicine Nephrology
DX: N18.4 Chronic kidney disease, stage 4 (severe) (principal)
CPT/HCPCS: 36415; 80069; 83970

== ENCOUNTER → 2020-11-29 08:55 | Outpatient (CLI) | payer MEDICARE, SELFPAY ==
--- NOTE | 2020-11-29 08:59 | VDUE_ITS ---
Reason For Study: Pre Surgery Right Arm Left Arm Rt Brach A 1: 0.50cm x 0.42cm, 67cm/s Lt Brach A: 0.49cm x 0.45cm, 78cm/s Rt Brach A 2: 0.41cm x 0.33cm, 62cm/s Lt Rad A: 0.25cm x 0.27cm, 58cm/s. Left Cephalic Vein at the wrist measures Rt Rad A: 0.32cm x 0.36cm, 57cm/s. 0.13cm x 0.12 cm. Right Cephalic Vein at the wrist measures Left Cephalic Vein in the forearm measures 0.11cm x 0.10 cm. 0.28cm x 0.23 cm. Right Cephalic Vein in the forearm measures Left Cephalic Vein below antecub measures 0.12cm x 0.14 cm. 0.31cm x 0.30 cm. Right Cephalic Vein below antecub measures Left Cephalic Vein above antecub measures 0.21cm x 0.22 cm. 0.25cm x 0.22 cm. Right Cephalic Vein above antecub measures Left Cephalic Vein at mid bicep measures 0.12cm x 0.12 cm. 0.19cm x 0.22 cm. Right Cephalic Vein mid bicep measures Left Cephalic Vein at the shoulder measures 0.13cm x 0.14 cm. 0.19cm x 0.20 cm. Right Cephalic Vein at the shoulder measures Basilic vein at origin measures 0.45cm x 0.22cm x 0.25 cm. 0.50 cm. Right Basilic Vein at the origin measures Basilic vein at bicep measures 0.50cm x 0.51 0.45cm x 0.47 cm. cm. Right Basilic Vein mid bicep measures 0.38cm Basilic vein above antecub measures 0.33cm x x 0.39 cm. 0.31 cm. Right Basilic Vein above antecub measures 0.38cm x 0.41 cm. VL/Saphenous Vein Mapping, Bilat Interpretation Summary Patent and compressible bilateral upper extremity cephalic and basilic veins as noted. Bilateral cephalic veins appear relatively small throughout Bilateral upper arm basilic veins appear adequate Bilateral radial and brachial arteries have normal diameter and flow Ordering Physician: Daysi Magana Referring Physician: Jonathan Baptiste Performed By: Clara Coronado, RAFAEL, RVT ?
== END ==
LOC: CVS 08:57
PROVIDERS: PCP Student in an Organized Health Care Education/Training Program; Referring Provider Internal Medicine Nephrology; Visit Provider Internal Medicine Nephrology
DX: Z01.818 Encounter for other preprocedural examination (principal); N18.4 Chronic kidney disease, stage 4 (severe)
CPT/HCPCS: 93970; 93985

== ENCOUNTER 2021-01-01 07:48 | Day surgery (SDC) | payer MEDICARE, SELFPAY ==
[2020-12-26 10:38] LABS: Hematocrit 38.6 % (40-54); Hemoglobin 12.3 g/dL (13.0-16.5); Mean Corp Hgb Conc 31.9 g/dL (32-36); Mean Corpuscular Hgb 29.6 pg (27.0-32.0); Mean Corpuscular Volume 92.8 fL (80-94); Mean Platelet Vol. 12.6 fl (6.2-12.0); Platelet Count 194 K/mm3 (150-450); RBC Distribution Width CV 14.6 % (11.6-14.6); RBC Distribution Width SD 49.2 fl (35.1-43.9); Red Blood Count 4.16 M/mm3 (4.6-6.2); White Blood Count 7.4 K/mm3 (4.4-11.0)
[2020-12-26 11:08] LABS: Albumin, Serum 3.3 g/dL (3.2-5.0); BUN 78 mg/dL (7-18); BUN/Creat Ratio 18.7 RATIO (10-20); Calcium,Total 8.9 mg/dL (8.5-10.1); Chloride 117 mmol/L (98-107); Creatinine, Serum 4.17 mg/dL (0.70-1.30); EST Glomerular Filtration Rate 15 mL/min (>60); Est Glom Filt Rate - Afr Amer 19 mL/min (>60); Glucose 137 mg/dL (74-106); Phosphorus 3.7 mg/dL (2.5-4.9); Potassium 4.7 mmol/L (3.5-5.1); Sodium Level 145 mmol/L (136-145)
[2020-12-26 11:14] LABS: Anion Gap 11 (5-15); BUN 79 mg/dL (7-18); BUN/Creat Ratio 18.8 RATIO (10-20); Calcium,Total 8.9 mg/dL (8.5-10.1); Chloride 115 mmol/L (98-107); EST Glomerular Filtration Rate 15 mL/min (>60); Est Glom Filt Rate - Afr Amer 18 mL/min (>60); Glucose 137 mg/dL (74-106); Potassium 4.6 mmol/L (3.5-5.1); Sodium Level 144 mmol/L (136-145)
[2021-01-01] VITALS (14 sets, daily range): BP systolic 97–139; BP diastolic 59–93; PULSE 57–74; RESP 16–18; TEMP 36.1–36.9; O2SAT 96–100; BMI 28.2
[2021-01-01] MEDS: 0.9% Normal Saline 1,000 ML 15 ML IV (09:08)
[2021-01-01 09:15] LABS: Bedside Glucose 204 mg/dL (70-110)
--- NOTE | 2021-01-01 09:18 | PCM.HP.BLA ---
History and Physical Date of Admission: 01/01/21 Visit Reasons: VM 11/29, FISTULA Chief Complaint: N/V/D Allergies No Known Allergies Allergy (Verified 12/11/20 13:47) Medications nitroglycerin 0.4 mg SUBLINGUAL Q5M PRN 05/14/17 [History Confirmed 12/11/20] oxycodone 5 mg PO BID PRN PRN 05/14/17 [History Confirmed 12/01/20] allopurinol 300 mg PO DAILY 09/15/17 [History Confirmed 12/11/20] finasteride 5 mg PO DAILY 09/15/17 [History Confirmed 12/11/20] isosorbide mononitrate 30 mg PO DAILY 09/15/17 [History Confirmed 12/11/20] metoprolol succinate 50 mg PO DAILY 09/15/17 [History Confirmed 12/11/20] albuterol sulfate 1 - 2 puff INHALATION Q4H PRN PRN 05/12/18 [History Confirmed 12/11/20] diazepam 5 mg PO BID PRN 05/12/18 [History Confirmed 12/11/20] insulin aspart U-100 5 units SC TIDCM #0 05/16/18 [Rx Confirmed 12/11/20] clopidogrel 75 mg PO DAILY 08/04/18 [History Confirmed 12/11/20] cholecalciferol (vitamin D3) 50 mcg (2,000 unit) capsule 2,000 mcg PO DAILY #90 cap 02/19/19 [History Confirmed 12/11/20] cilostazol 100 mg tablet 100 mg PO QHS tab 09/30/19 [History Confirmed 12/11/20] escitalopram oxalate 20 mg tablet 20 mg PO DAILY 09/30/19 [History Confirmed 12/11/20] ferrous sulfate 325 mg (65 mg iron) tablet 325 mg PO DAILY tab 09/30/19 [History Confirmed 12/11/20] ipratropium 0.5 mg-albuterol 3 mg (2.5 mg base)/3 mL nebulization soln 3 ml INHALATION Q4H PRN ml 09/30/19 [History Confirmed 12/11/20] loperamide 2 mg capsule 2 mg PO Q4H PRN PRN cap 09/30/19 [History Confirmed 12/11/20] rosuvastatin 10 mg tablet 10 mg PO DAILY #90 tab 09/30/19 [History Confirmed 12/11/20] levothyroxine 88 mcg PO DAILY 12/07/19 [History Confirmed 12/11/20] Tresiba U-100 Insulin 30 unit SUBCUT DAILY 08/26/20 [History Confirmed 12/11/20] pantoprazole 40 mg PO DAILY 08/26/20 [History Confirmed 12/11/20] Anoro Ellipta 1 inh INHALATION Q24H 08/31/20 [History Confirmed 12/11/20] sodium bicarbonate 650 mg PO TID #90 tab 08/31/20 [Rx Confirmed 12/11/20] amiodarone 200 mg tablet 200 mg PO DAILY #90 tab 12/04/20 [Rx Confirmed 12/11/20] aspirin 81 mg tablet,delayed release 81 mg PO DAILY 12/11/20 [History Confirmed 12/11/20] PFS Medical History Acute exacerbation of chronic obstructive pulmonary disease (COPD) Acute renal failure superimposed on stage 3 chronic kidney disease Acute renal failure superimposed on stage 4 chronic kidney disease Acute respiratory failure with hypoxemia Anemia of chronic renal failure Anxiety Atherosclerosis of coronary artery of [place] heart without angina pectoris C. difficile colitis Cancer Cholelithiasis Chronic hypoxemic respiratory failure Colon cancer Colon cancer COPD (chronic obstructive pulmonary disease) Depression Diabetes Diabetes mellitus type 2 in obese Essential (primary) hypertension Gastroenteritis Gout Heme + stool Hemorrhoids Hyperkalemia, diminished renal excretion Hyperlipidemia Hyponatremia Hypotension, unspecified Increased PTH level Infectious encephalopathy Influenza B Iron deficiency anemia Kidney disease Low vitamin D level Lower GI bleed Metabolic acidosis Metabolic acidosis Myocardial infarct Nicotine dependence, cigarettes, in remission Nocturnal hypoxia Non-STEMI (non-ST elevated myocardial infarction) Noncompliance with CPAP treatment NSAID long-term use NSTEMI (non-ST elevated myocardial infarction) (07/2018) NSVT (nonsustained ventricular tachycardia) LADARIUS (obstructive sleep apnea) Paroxysmal atrial fibrillation Peripheral vascular disease Pseudomembranous enterocolitis Radiculopathy affecting upper extremity Septic shock Severe sepsis Severe sepsis Sleep apnea Smoker Stage 3 severe COPD by GOLD classification Streptococcal pneumonia Uremia of renal origin Urinary retention due to benign prostatic hyperplasia Surgical History H/O colectomy H/O pneumonectomy History of coronary artery stent placement (05/18/03) History of left heart catheterization (11/27/09) Hx of craniotomy Status post colon resection Status post insertion of dialysis catheter (07/2018) Family History Father Leukemia Mother COPD (chronic obstructive pulmonary disease) Social History household members: spouse housing: other details: mobile home current occupational status: disabled pets and animals: Yes pets and animals: dog(s) Smoking Status: Current every day smoker tobacco type: cigarettes Tobacco: How many years used: 40 second hand exposure: No alcohol intake: never substance use type: does not use HPI HPI HPI: BARI KELLY, is a 64 M who presents to the office today for surgical consultation regarding creation of arteriovenous hemodialysis fistula. The patient is referred by Dr. Daysi Magana and he has a diagnosis of chronic kidney disease stage IV, hypertensive disorder, type 2 diabetes mellitus, hyperkalemia, metabolic acidosis, chronic anemia, vitamin D deficiency. In addition to his other medicines he is on clopidogrel and aspirin and cilostazol. As of November 17, 2020 his BUN was 65 and creatinine 3.68 with an estimated GFR of 18 He has had what sounds like complicated colon cancer surgery by Dr. Ho. He claims to only have 6 inches of his colon remaining. The patient was hoping to have peritoneal dialysis catheters placed in home treatment because he does not want to have to go to a dialysis center. The patient however is referred for a arteriovenous fistula. He is previously had right lung surgery for suspected cancer. He claims that ever since he has had deficit of his left upper and lower extremity with tingling and numbness. In addition he has atherosclerotic cardiovascular disease and has had coronary stents placed. November 29, 2020 Reason For Study: Pre Surgery Right Arm Left Arm Rt Brach A 1: 0.50cm x 0.42cm, 67cm/s Lt Brach A: 0.49cm x 0.45cm, 78cm/s Rt Brach A 2: 0.41cm x 0.33cm, 62cm/s Lt Rad A: 0.25cm x 0.27cm, 58cm/s. Left Cephalic Vein at the wrist measures Rt Rad A: 0.32cm x 0.36cm, 57cm/s. 0.13cm x 0.12 cm. Right Cephalic Vein at the wrist measures Left Cephalic Vein in the forearm measures 0.11cm x 0.10 cm. 0.28cm x 0.23 cm. Right Cephalic Vein in the forearm measures Left Cephalic Vein below antecub measures 0.12cm x 0.14 cm. 0.31cm x 0.30 cm. Right Cephalic Vein below antecub measures Left Cephalic Vein above antecub measures 0.21cm x 0.22 cm. 0.25cm x 0.22 cm. Right Cephalic Vein above antecub measures Left Cephalic Vein at mid bicep measures 0.12cm x 0.12 cm. 0.19cm x 0.22 cm. Right Cephalic Vein mid bicep measures Left Cephalic Vein at the shoulder measures 0.13cm x 0.14 cm. 0.19cm x 0.20 cm. Right Cephalic Vein at the shoulder measures Basilic vein at origin measures 0.45cm x 0.22cm x 0.25 cm. 0.50 cm. Right Basilic Vein at the origin measures Basilic vein at bicep measures 0.50cm x 0.51 0.45cm x 0.47 cm. cm. Right Basilic Vein mid bicep measures 0.38cm Basilic vein above antecub measures 0.33cm x x 0.39 cm. 0.31 cm. Right Basilic Vein above antecub measures 0.38cm x 0.41 cm. VL/Saphenous Vein Mapping, Bilat Interpretation Summary Patent and compressible bilateral upper extremity cephalic and basilic veins as noted. Bilateral cephalic veins appear relatively small throughout Bilateral upper arm basilic veins appear adequate Bilateral radial and brachial arteries have normal diameter and flow Ordering Physician: Daysi Magana Referring Physician: Jonathan Baptiste Performed By: Clara Coronado RDCS, RVT General General: Yes colon cancer; No weight change, appetite, fatigue, breast cancer or weakness HEENT HEENT: No difficulty swallowing, eye injury, eye surgery, swollen glands or hoarseness Endo Endocrine: Yes diabetes mellitus; No thyroid disease, thyroid cancer, Hair loss, heat intolerance or cold intolerance Skin Skin: No rash or changing moles Breast Breast: No left breast lump, right breast lump, nipple discharge, breast pain, abnormal mammogram, abnormal US or breast enlargement Musc Musculoskeletal: Yes back problems and gout; No arthritis, rheumatoid arthritis or joint pain Cardio Cardiovascular: Yes high blood pressure and heart stent; No murmur, pacemaker, heart disease, atrial fibrillation, heart attack, palpitations, shortness of breat with exertion or chest pain Psych Psychiatric: No depression, anxiety or hearing voices Resp Respiratory: Yes shortness of breath, No sleep apnea, No cough, Yes COPD, No asthma, No emphysema and No wheezing Gastro Gastrointestinal: No abdominal pain, No nausea or vomiting, Yes diarrhea, No constipation, No blood in stool, No acid reflux, No hemorrhoids, No ulcers, No gallbladder problem and Yes black,tarry stools [place] Hematologic: Yes blood thinners, No blood disorders, Yes bleeding, No anemia and No blood clots Neuro Neurologic: No system reviewed and no additional complaints, except as documented, No as per HPI, No abnormal gait, No abnormal hearing, No abnormal movements, No abnormal speech, No behavioral changes, No burning sensations, No confusion, No convulsions, No disequilibrium, No dizziness, No localized weakness, No frequent falls, No headache(s), No lack of coordination, No loss of vision, No memory loss, Yes numbness, No other visual disturbances, No radicular pain, No restless legs, No sensory deficit, No syncope, Yes tingling, No tremor(s), No weakness and No other Exam Const General: cooperative, comfortable and no acute distress Nutritional Appearance: average body habitus Orientation: alert and awake [facility] Head: normal to inspection Eyes General: appearance normal, both eyes and all related structures Chest Other: Increased anterior posterior diameter Resp Other: Clear on the left, wheezing on the right Cardio Rate: regular rate Rhythm: regular rhythm GI Other: Soft, nontender, well-healed infraumbilical midline incision Musc Cervical Spine: normal cervical lordosis Skin Other: Scattered areas of skin tears bilateral upper and lower extremities Neuro Cognition: normal cognition Extrem Other: Left upper extremity: Radial 2+. Brachial 3+. I performed ultrasound inspection revealing a borderline small left forearm cephalic vein. It is quite small at the wrist. The left upper arm basilic vein much more generous although the crossing branch to the antecubital space becomes smaller. Psych Appearance: grossly normal Assessment and Plan Assessment and Plan (1) DM type 2 causing CKD stage 4: Status: Chronic (2) Arm numbness left: Status: Acute (3) Nicotine dependence, cigarettes, uncomplicated: Status: Acute Plan - Dr. Enoch Dick MD: Complex 64-year-old gentleman looks far older than stated age. He is right arm dominant. His forearm cephalic veins are small. I propose for him a left upper arm stage I basilic vein to brachial artery AV fistula. I will need to perform careful mapping as the antecubital vein somewhat diminutive. I have described to him the technique, benefit, risk, alternatives. No guarantees of success. We will need to hold his anticoagulants preprocedure. I anticipate 2 days of being off his clopidogrel. I have asked him to be off his cilostazol for a week. He can remain on his low-dose aspirin. Unfortunately patient continues to smoke cigarettes. The patient has not had COVID-19 vaccination. I encouraged him to reconsider this choice as his chronic renal failure places him at increased risk for poor outcome We will schedule procedure at his discretion. He is aware that a secondary procedure will be required for transposition. The patient already has arm numbness and tingling. Great care will be taken to avoid neurovascular injury. I briefly discussed with him peritoneal dialysis catheters. With the type of near-total colectomy and pelvic anastomosis I do not believe that he would be a great candidate for peritoneal catheter placement. He would appear to be a better candidate for AV fistula creation. He is had an opportunity to ask and have questions answered and is understanding of this recommendation. I appreciate the opportunity of assisting with the surgical care Copy: Dr. Daysi Magana and Dr. Jonathan Dick, Christina., F.A.C.S. I have re-examined the patient. There are no clinical changes since date of exam.
--- NOTE | 2021-01-01 09:20 | EX.PCM.DISCH ---
Discharge Instructions Procedure Fistula Diet Discharge Diet: Renal Diet Activity Discharge Activity: May Not Drive (for 2-3 days or while taking narcotic pain medications.), May Shower and May Take a Tub Bath (in 5 days.) Lifting Restrictions: 5 pounds Keep extremity elevated above heart level: - (Keep arm elevated above the heart level for 3 days.) Dressing / Incision Call your doctor if your incision/area has: Continuous Slow Oozing, Sudden Increased Bleeding (apply pressure and call your doctor.), Increased Pain/ Swelling, Increased Redness and Foul Smelling Discharge Call your doctor if you observe: Fever of 101 or Higher Suture Line Care: Avoid Pulling/Pushing and Avoid Pinching/Bending Cleanse incision/area with: Keep Dressing Clean & Dry Additional Dressing/Incision Instructions:: Change or remove dressing in one day. May protect with a gauze bandaid. Follow Up Care Please Follow Up With: Enoch Dick MD When: Call [phone] to make an appointment for suture removal and follow up in 1 week. Test Results: Test results from this visit will be discussed in further detail at your follow-up appointment, if applicable. Discharge Plan Admission Attending Provider: Enoch Dick Primary Care Provider: Jonathan Baptiste Discharge Orders/Prescriptions Prescriptions: No Action cholecalciferol (vitamin D3) 50 mcg (2,000 unit) capsule 2,000 mcg PO DAILY Qty: 90 RF: 0 rosuvastatin 10 mg tablet 10 mg PO DAILY Qty: 90 RF: 0 loperamide 2 mg capsule 2 mg PO Q4H PRN PRN (Reason: Diarrhea) RF: 0 ipratropium-albuterol 0.5 mg-3 mg(2.5 mg base)/3 mL solution for nebulization 3 ml INHALATION Q4H PRN (Reason: shortness of breath or wheezing) RF: 0 escitalopram oxalate [Lexapro] 20 mg tablet 20 mg PO DAILY RF: 0 aspirin 81 mg tablet,delayed release (DR/EC) 81 mg PO DAILY RF: 0 nitroglycerin 0.4 MG tablet 0.4 mg SUBLINGUAL Q5M PRN (Reason: Chest Pain) RF: 0 oxycodone 5 MG tablet 5 mg PO BID PRN PRN (Reason: Pain) RF: 0 allopurinol 300 MG tablet 300 mg PO DAILY RF: 0 finasteride 5 MG tablet 5 mg PO DAILY RF: 0 isosorbide mononitrate 30 MG tablet 30 mg PO DAILY RF: 0 metoprolol succinate 50 MG tablet 50 mg PO DAILY RF: 0 cilostazol 100 mg tablet 100 mg PO QHS RF: 0 albuterol sulfate 1 INHALER inhaler 1 - 2 puff inhalation Q4H PRN PRN (Reason: Wheezing) RF: 0 diazepam 5 MG tablet 5 mg PO BID PRN (Reason: anxiety) RF: 0 clopidogrel 75 MG tablet 75 mg PO DAILY RF: 0 ferrous sulfate 325 mg (65 mg iron) tablet 325 mg PO DAILY RF: 0 levothyroxine 88 MCG tablet 88 mcg PO DAILY RF: 0 pantoprazole 40 mg Tablet,Delayed Release (Dr/Ec) 40 mg PO DAILY RF: 0 Tresiba U-100 Insulin 100 unit/mL Solution 30 unit SUBCUT BID RF: 0 Anoro Ellipta 62.5-25 mcg/actuation blister with device 1 inh inhalation Q24H RF: 0 sodium bicarbonate 650 mg tablet 650 mg PO 4X/DAY RF: 0 insulin aspart U-100 [Novolog Flexpen U-100 Insulin] 100 UNITS/ML insulin pen 5 units SC TIDCM RF: 0 amiodarone 200 mg tablet 200 mg PO DAILY Qty: 90 RF: 3
[2021-01-01] MEDS: Bupivacaine Mpf 0.5% 30 ML VIAL (09:51)
[2021-01-01] MEDS: Lidocaine 1% (30 ml sdv) 30 ML Vial (09:51)
[2021-01-01] MEDS: Heparin Injection (Vial) 5,000 UNIT/ML VIAL 5000 UNIT (09:55)
--- NOTE | 2021-01-01 10:39 | PCM.OPRPT ---
Problems Associated Problem List Diagnoses (1) DM type 2 causing CKD stage 4: Report of Operation Date of Procedure: 01/01/21 Pre-Operative Diagnosis: Stage IV chronic renal insufficiency Post-Operative Diagnosis: Same Surgery/Procedure Performed:: Stage I left extremity brachiobasilic arteriovenous fistula creation Description of Surgical Findings:: Timeout informed consent was obtained. 65-year-old gentleman was taken to the operating placed upon the table underwent monitored anesthesia care. Clean procedure no antibiotics required. The left upper extremity was sterilely prepped and draped. Ultrasound was used to map the course of left upper arm basilic vein. 1% lidocaine mixed 50-50 with 0.5% Marcaine was used as a local anesthetic. A total of 11 cc was used. An oblique incision was made sharp blunt sections used to identify the basilic vein which was dissected distally. It was ink marked and then clipped distally with hemoclips. It was spatulated irrigated with heparinized saline. Sharp and blunt dissection used to identify the brachial artery and circumferential control was obtained. This actually proceeded very expeditiously. The patient received 8000 units of heparin. After adequate circulating time peripheral vascular clamps were placed on the brachial artery proximally and distally an 11 blade was used to make an arteriotomy which was extended with Jones scissors. A end-to-side venous to arterial anastomosis was created with the spatulated vein in a running 7-0 Prolene. Hemostasis was nicely intact. There was excellent flow in of the vein confirmed with Doppler. The hand was warm and viable. Hemostasis absolutely intact. The deep tissues were approximated up to 3-0 Vicryl subdermal stitches. Skin edges approximated running septic or 4 Monocryl. Telfa tape dressings applied. Sponge and instrument and needle counts were reported to certainly be correct. Specimens none. Drains none. Blood loss minimal. The patient was taken to the recovery area in satisfactory addition without apparent complication Enoch Dick M.D., F.A.C.S. Surgeon: Enoch Dick Type of Anesthesia: Local MAC Anesthesiologist: Micheline Rodriges
[2021-01-01] MEDS: Ipratropium/Albuterol Sulfate 3 ML AMPUL.NEB INHALATION (11:16)
== END 2021-01-01 13:31 | disposition home or self-care (01) ==
LOC: SDC 07:49 → AC 07:50
PROVIDERS: Internal Medicine Nephrology; PCP Student in an Organized Health Care Education/Training Program; Referring Provider Surgery; Visit Provider Surgery
PROC: (CPT 36821; principal; 2021-01-01 09:45)
DX: I12.9 Hypertensive chronic kidney disease with stage 1 through stage 4 chronic kidney disease, or unspecified chronic kidney disease (principal); E11.22 Type 2 diabetes mellitus with diabetic chronic kidney disease; N18.4 Chronic kidney disease, stage 4 (severe); J44.9 Chronic obstructive pulmonary disease, unspecified; I25.10 Atherosclerotic heart disease of native coronary artery without angina pectoris; F32.A Depression, unspecified; E78.5 Hyperlipidemia, unspecified; Z79.4 Long term (current) use of insulin; F17.210 Nicotine dependence, cigarettes, uncomplicated; Z79.899 Other long term (current) drug therapy
CPT/HCPCS: 01844; 36821; 36415; 80048; 80069; 82962; 85027; 87426; 94640; C9803; J7030; J7120

== ENCOUNTER → 2021-01-26 13:11 | Outpatient (CLI) | payer MEDICARE, SELFPAY ==
[2021-01-26 13:44] LABS: Hematocrit 34.2 % (40-54); Hemoglobin 11.5 g/dL (13.0-16.5); Mean Corp Hgb Conc 33.6 g/dL (32-36); Mean Corpuscular Volume 92.2 fL (80-94); Mean Platelet Vol. 11.8 fl (6.2-12.0); Platelet Count 194 K/mm3 (150-450); RBC Distribution Width CV 14.2 % (11.6-14.6); RBC Distribution Width SD 47.8 fl (35.1-43.9); Red Blood Count 3.71 M/mm3 (4.6-6.2); White Blood Count 7.8 K/mm3 (4.4-11.0)
[2021-01-26 14:15] LABS: Albumin, Serum 3.2 g/dL (3.2-5.0); BUN 58 mg/dL (7-18); BUN/Creat Ratio 14.8 RATIO (10-20); Calcium,Total 8.4 mg/dL (8.5-10.1); Chloride 116 mmol/L (98-107); Creatinine, Serum 3.92 mg/dL (0.70-1.30); EST Glomerular Filtration Rate 16 mL/min (>60); Est Glom Filt Rate - Afr Amer 20 mL/min (>60); Ferritin 53 ng/mL (26-388); Glucose 193 mg/dL (74-106); Iron 73 ug/dL (65-175); Iron Binding Capacity,Total 314 ug/dL (250-450); PERCENT IRON SATURATION 23.2 % (15.0-55.0); PTHIN 176.2 pg/mL (18.4-80.1); Phosphorus 2.9 mg/dL (2.5-4.9); Sodium Level 140 mmol/L (136-145)
[2021-01-26 14:19] LABS: Vitamin D,25 Hydroxy 25.8 ng/mL
== END ==
PROVIDERS: PCP Student in an Organized Health Care Education/Training Program; Visit Provider Internal Medicine Nephrology
DX: D64.9 Anemia, unspecified (principal)
CPT/HCPCS: 36415; 80069; 82306; 82728; 83540; 83550; 83970; 85027

== ENCOUNTER → 2021-02-10 11:31 | Outpatient (CLI) | payer MEDICARE, SELFPAY ==
[2021-02-10 11:58] LABS: Potassium 5.8 mmol/L (3.5-5.1)
== END ==
PROVIDERS: PCP Student in an Organized Health Care Education/Training Program; Visit Provider Surgery
DX: E87.5 Hyperkalemia (principal)
CPT/HCPCS: 36415; 84132

== ENCOUNTER 2021-02-12 07:53 | Day surgery (SDC) | payer MEDICARE, SELFPAY ==
[2021-02-07 11:24] LABS: Hematocrit 37.2 % (40-54); Mean Corp Hgb Conc 32.3 g/dL (32-36); Mean Corpuscular Hgb 30.1 pg (27.0-32.0); Mean Corpuscular Volume 93.2 fL (80-94); Mean Platelet Vol. 11.3 fl (6.2-12.0); Platelet Count 209 K/mm3 (150-450); RBC Distribution Width CV 14.3 % (11.6-14.6); RBC Distribution Width SD 48.5 fl (35.1-43.9); Red Blood Count 3.99 M/mm3 (4.6-6.2); White Blood Count 8.2 K/mm3 (4.4-11.0)
[2021-02-07 12:05] LABS: Anion Gap 8 (5-15); BUN 55 mg/dL (7-18); BUN/Creat Ratio 15.9 RATIO (10-20); Calcium,Total 8.7 mg/dL (8.5-10.1); Chloride 111 mmol/L (98-107); Creatinine, Serum 3.46 mg/dL (0.70-1.30); EST Glomerular Filtration Rate 19 mL/min (>60); Est Glom Filt Rate - Afr Amer 23 mL/min (>60); Glucose 284 mg/dL (74-106); Potassium 5.6 mmol/L (3.5-5.1); Sodium Level 138 mmol/L (136-145)
[2021-02-12] VITALS (9 sets, daily range): BP systolic 104–150; BP diastolic 58–87; PULSE 53–84; RESP 14–18; TEMP 35.8–36.2; O2SAT 97–100; BMI 28.9
[2021-02-12 09:17] LABS: Potassium 4.6 mmol/L (3.5-5.1)
[2021-02-12] MEDS: 0.9% Normal Saline 1,000 ML 15 ML IV (09:30)
[2021-02-12 09:45] LABS: Bedside Glucose 193 mg/dL (70-110)
--- NOTE | 2021-02-12 12:00 | HP.PCM_ITS ---
History and Physical Date of Admission: 02/12/21 Intake Visit Reasons: f/u FISTULA 01/01 Chief Complaint: recheck fistula [employer] Required: No Is patient in pain?: No Allergies No Known Allergies Allergy (Verified 01/09/21 13:12) Medications nitroglycerin 0.4 mg SUBLINGUAL Q5M PRN 05/14/17 [History Confirmed 01/23/21] oxycodone 5 mg PO BID PRN PRN 05/14/17 [History Confirmed 01/23/21] allopurinol 300 mg PO DAILY 09/15/17 [History Confirmed 01/23/21] finasteride 5 mg PO DAILY 09/15/17 [History Confirmed 01/23/21] isosorbide mononitrate 30 mg PO DAILY 09/15/17 [History Confirmed 01/23/21] metoprolol succinate 50 mg PO DAILY 09/15/17 [History Confirmed 01/23/21] albuterol sulfate 1 - 2 puff INHALATION Q4H PRN PRN 05/12/18 [History Confirmed 01/23/21] diazepam 5 mg PO BID PRN 05/12/18 [History Confirmed 01/23/21] clopidogrel 75 mg PO DAILY 08/04/18 [History Confirmed 01/23/21] cholecalciferol (vitamin D3) 50 mcg (2,000 unit) capsule 2,000 mcg PO DAILY #90 cap 02/19/19 [History Confirmed 01/23/21] cilostazol 100 mg tablet 100 mg PO QHS tab 09/30/19 [History Confirmed 01/23/21] escitalopram oxalate 20 mg tablet 20 mg PO DAILY 09/30/19 [History Confirmed 01/23/21] ferrous sulfate 325 mg (65 mg iron) tablet 325 mg PO DAILY tab 09/30/19 [History Confirmed 01/23/21] ipratropium 0.5 mg-albuterol 3 mg (2.5 mg base)/3 mL nebulization soln 3 ml INHALATION Q4H PRN ml 09/30/19 [History Confirmed 01/23/21] loperamide 2 mg capsule 2 mg PO Q4H PRN PRN cap 09/30/19 [History Confirmed 01/23/21] rosuvastatin 10 mg tablet 10 mg PO DAILY #90 tab 09/30/19 [History Confirmed 01/23/21] levothyroxine 88 mcg PO DAILY 12/07/19 [History Confirmed 01/23/21] Tresiba U-100 Insulin 30 unit SUBCUT BID 08/26/20 [History Confirmed 01/23/21] pantoprazole 40 mg PO DAILY 08/26/20 [History Confirmed 01/23/21] Anoro Ellipta 1 inh INHALATION Q24H 08/31/20 [History Confirmed 01/23/21] amiodarone 200 mg tablet 200 mg PO DAILY #90 tab 12/04/20 [Rx Confirmed 01/23/21] aspirin 81 mg tablet,delayed release 81 mg PO DAILY 12/11/20 [History Confirmed 01/23/21] insulin aspart U-100 [Novolog Flexpen U-100 Insulin] 5 units SUBCUT TIDCM 12/25/20 [History Confirmed 01/23/21] sodium bicarbonate 650 mg PO 4X/DAY 12/25/20 [History Confirmed 01/23/21] [facility] Medical History (Updated 01/24/21 @ 10:19 by Cheryl RUFFIN, PA-C) Acute exacerbation of chronic obstructive pulmonary disease (COPD) Acute renal failure superimposed on stage 3 chronic kidney disease Acute renal failure superimposed on stage 4 chronic kidney disease Acute respiratory failure with hypoxemia Anemia Anemia of chronic renal failure Anxiety Atherosclerosis of coronary artery of [place] heart without angina pectoris Back pain C. difficile colitis Cancer Cancer Cardiology follow-up encounter Cholelithiasis Chronic hypoxemic respiratory failure Chronic renal failure, stage 4 (severe) Colon cancer Colon cancer COPD (chronic obstructive pulmonary disease) CPAP (continuous positive airway pressure) dependence Depression Diabetes Diabetes mellitus type 2 in obese Essential (primary) hypertension Gastric reflux Gastroenteritis Gout Heme + stool Hemorrhoids High cholesterol History of echocardiogram History of GI bleed History of IBS History of renal disease Hyperkalemia, diminished renal excretion Hyperlipidemia Hypertension Hyponatremia Hypotension, unspecified Increased PTH level Infectious encephalopathy Influenza B Injury of head and neck Insulin dependent diabetes mellitus Iron deficiency anemia Kidney disease Low vitamin D level Lower GI bleed Metabolic acidosis Metabolic acidosis Myocardial infarct Nicotine dependence, cigarettes, in remission Nocturnal hypoxia Non-STEMI (non-ST elevated myocardial infarction) Noncompliance with CPAP treatment NSAID long-term use NSTEMI (non-ST elevated myocardial infarction) (07/2018) NSVT (nonsustained ventricular tachycardia) On home oxygen therapy LADARIUS (obstructive sleep apnea) Paroxysmal atrial fibrillation Peripheral vascular disease Pseudomembranous enterocolitis Radiculopathy affecting upper extremity Septic shock Severe sepsis Severe sepsis Shortness of breath on exertion Skin tear Sleep apnea Smoker Stage 3 severe COPD by GOLD classification Streptococcal pneumonia Uremia of renal origin Urinary retention due to benign prostatic hyperplasia Wears dentures Surgical History H/O colectomy H/O pneumonectomy History of coronary artery stent placement (05/18/03) History of esophagogastroduodenoscopy (EGD) History of left heart catheterization (11/27/09) Hx of craniotomy S/P arteriovenous (AV) fistula creation Status post colon resection Status post insertion of dialysis catheter (07/2018) Family History Father Leukemia Mother COPD (chronic obstructive pulmonary disease) Social History household members: spouse housing: other details: mobile home current occupational status: disabled pets and animals: Yes pets and animals: dog(s) Smoking Status: Current every day smoker tobacco type: cigarettes Tobacco: How many years used: 40 second hand exposure: No alcohol intake: never substance use type: does not use HPI HPI HPI: BARI KELLY, is a 65 M who presents to the office today for follow-up of his fistula. Dr. Dick performed a stage I left upper extremity brachiobasilic arteriovenous fistula creation on 01/01/21. Patient tolerated the procedure well. Patient is not currently on dialysis. Patient denies pain/discomfort at the incision site. Patient states he had numbness/tingling prior to surgery and this remains the same. Patient denies any recent illnesses. He denies any complications with anesthesia from his previous procedures. ROS General General: Yes colon cancer; No weight change, appetite, fatigue, breast cancer or weakness HEENT HEENT: No difficulty swallowing, eye injury, eye surgery, swollen glands or hoarseness Endo Endocrine: Yes diabetes mellitus; No thyroid disease, thyroid cancer, Hair loss, heat intolerance or cold intolerance Skin Skin: No rash or changing moles Breast Breast: No left breast lump, right breast lump, nipple discharge, breast pain, abnormal mammogram, abnormal US or breast enlargement Musc Musculoskeletal: Yes back problems and gout; No arthritis, rheumatoid arthritis or joint pain Cardio Cardiovascular: Yes high blood pressure and heart stent; No murmur, pacemaker, heart disease, atrial fibrillation, heart attack, palpitations, shortness of breat with exertion or chest pain Psych Psychiatric: No depression, anxiety or hearing voices Resp Respiratory: Yes shortness of breath, No sleep apnea, No cough, Yes COPD, No asthma, No emphysema and No wheezing Gastro Gastrointestinal: No abdominal pain, No nausea or vomiting, Yes diarrhea, No constipation, No blood in stool, No acid reflux, No hemorrhoids, No ulcers, No gallbladder problem and Yes black,tarry stools [place] Hematologic: Yes blood thinners, No blood disorders, Yes bleeding, No anemia and No blood clots Neuro Neurologic: No system reviewed and no additional complaints, except as documen jensen, No as per HPI, No abnormal gait, No abnormal hearing, No abnormal movements, No abnormal speech, No behavioral changes, No burning sensations, No confusion, No convulsions, No disequilibrium, No dizziness, No localized weakness, No frequent falls, No headache(s), No lack of coordination, No loss of vision, No memory loss, Yes numbness, No other visual disturbances, No radicular pain, No restless legs, No sensory deficit, No syncope, Yes tingling, No tremor(s), No weakness and No other Exam Const General: cooperative, healthy appearing, comfortable and no acute distress [facility] Head: normal to inspection Eyes General: appearance normal, both eyes and all related structures Neck Neck: normal visual inspection Neck mass: No Resp Effort & Inspection: normal respiratory effort Auscultation: clear to auscultation bilaterally Cardio Rate: regular rate Rhythm: regular rhythm GI Inspection: normal to inspection Palpation: soft Auscultation: normal bowel sounds Skin General: no rashes or lesions noted Neuro General: no focal motor deficits and CN's II-XI intact bilaterally Extrem Other: Left upper extremity AV fistula- good pulse, bruit and thrill. Incision nicely healed. Psych Appearance: grossly normal Affect: normal affect COVID (Procedure Consent) Procedure Criteria Procedure Criteria: Yes Elective The surgeon/proceduralist and patient have discussed in detail the risk of exposure to and/or potential harm posed by the COVID-19 virus with having a surgery/procedure at this time versus the risk of delaying the surgery/procedure. It is not possible to know either the risk of d elaying the surgery or procedure or chance of getting an infection with perfect accuracy, but a joint decision was made between the patient and the surgeon/proceduralist to proceed at this time with the scheduled surgery/procedure as indicated on the consent form. Assessment and Plan Assessment and Plan (1) Chronic renal failure, stage 4 (severe): Status: Chronic Plan - Cheryl RUFFIN, [place]C: Dr. Dick performed a stage II transposition left upper extremity brachiobasilic arteriovenous fistula creation. Procedure details, risks and benefits have been explained to the patient. Patient has had the opportunity to ask and have questions answered. Patient verbally understands and agrees with the plan. Patient is maintained on Plavix. He will hold this for 2 days prior to the p rocedure. I have re-examined the patient. There are no clinical changes since date of exam. Enoch Dick M.D., F.A.C.S.
--- NOTE | 2021-02-12 12:27 | EX.PCM.DISCH ---
Discharge Instructions Procedure Fistula Diet Discharge Diet: Renal Diet Activity Discharge Activity: May Not Drive (for 2-3 days or while taking narcotic pain medications.), May Shower and May Take a Tub Bath (in 5 days.) Lifting Restrictions: 5 pounds Keep extremity elevated above heart level: - (Keep arm elevated above the heart level for 3 days.) Dressing / Incision Call your doctor if your incision/area has: Continuous Slow Oozing, Sudden Increased Bleeding (apply pressure and call your doctor.), Increased Pain/ Swelling, Increased Redness and Foul Smelling Discharge Call your doctor if you observe: Fever of 101 or Higher Suture Line Care: Avoid Pulling/Pushing and Avoid Pinching/Bending Cleanse incision/area with: Keep Dressing Clean & Dry Additional Dressing/Incision Instructions:: Change or remove dressing in one day. May protect with a gauze bandaid. Follow Up Care Please Follow Up With: Enoch Dick MD When: Call [phone] to make an appointment for suture removal and follow up in 1 week. Test Results: Test results from this visit will be discussed in further detail at your follow-up appointment, if applicable. Discharge Plan Admission Primary Reason for Your Visit: Stage IV chronic renal disease Attending Provider: Enoch Dick Primary Care Provider: Jonathan Baptiste Discharge Orders/Prescriptions Prescriptions: Continued cholecalciferol (vitamin D3) 50 mcg (2,000 unit) capsule 2,000 mcg PO DAILY Qty: 90 RF: 0 rosuvastatin 10 mg tablet 10 mg PO DAILY Qty: 90 RF: 0 loperamide 2 mg capsule 2 mg PO Q4H PRN PRN (Reason: Diarrhea) RF: 0 ipratropium-albuterol 0.5 mg-3 mg(2.5 mg base)/3 mL solution for nebulization 3 ml INHALATION Q4H PRN (Reason: shortness of breath or wheezing) RF: 0 escitalopram oxalate [Lexapro] 20 mg tablet 20 mg PO DAILY RF: 0 aspirin 81 mg tablet,delayed release (DR/EC) 81 mg PO DAILY RF: 0 nitroglycerin 0.4 MG tablet 0.4 mg SUBLINGUAL Q5M PRN (Reason: Chest Pain) RF: 0 oxycodone 5 MG tablet 5 mg PO BID PRN PRN (Reason: Pain) RF: 0 allopurinol 300 MG tablet 300 mg PO DAILY RF: 0 finasteride 5 MG tablet 5 mg PO DAILY RF: 0 isosorbide mononitrate 30 MG tablet 30 mg PO DAILY RF: 0 metoprolol succinate 50 MG tablet 50 mg PO DAILY RF: 0 cilostazol 100 mg tablet 100 mg PO QHS RF: 0 albuterol sulfate 1 INHALER inhaler 1 - 2 puff inhalation Q4H PRN PRN (Reason: Wheezing) RF: 0 diazepam 5 MG tablet 5 mg PO BID PRN (Reason: anxiety) RF: 0 clopidogrel 75 MG tablet 75 mg PO DAILY RF: 0 ferrous sulfate 325 mg (65 mg iron) tablet 325 mg PO DAILY RF: 0 levothyroxine 88 MCG tablet 88 mcg PO DAILY RF: 0 pantoprazole 40 mg Tablet,Delayed Release (Dr/Ec) 40 mg PO DAILY RF: 0 Tresiba U-100 Insulin 100 unit/mL Solution 30 unit SUBCUT BID RF: 0 Anoro Ellipta 62.5-25 mcg/actuation blister with device 1 inh inhalation Q24H RF: 0 sodium bicarbonate 650 mg tablet 650 mg PO 4X/DAY RF: 0 insulin aspart U-100 [Novolog Flexpen U-100 Insulin] 100 UNITS/ML insulin pen 5 units subcut TIDCM RF: 0 amiodarone 200 mg tablet 200 mg PO DAILY Qty: 90 RF: 3 sodium polystyrene sulfonate Powder 15 g PO DIRECTED Qty: 45 RF: 0 Referrals / Follow Up: Jonathan Baptiste DO [Primary Care Provider] - Disposition Disposition (needs filled in before D/C Order can be placed): Home, Self Care
[2021-02-12] MEDS: Cefazolin 2 GM in 0.9% Normal Saline 100 ML IV (12:30)
[2021-02-12] MEDS: Heparin Injection (Vial) 5,000 UNIT/ML VIAL 5000 UNIT (12:44)
[2021-02-12] MEDS: Lidocaine 1% (30 ml sdv) 30 ML Vial (12:44)
[2021-02-12] MEDS: Bupivacaine Mpf 0.5% 30 ML VIAL (12:44)
[2021-02-12] MEDS: Lidocaine 0.5% (50 ml) 50 ML Vial (12:59)
--- NOTE | 2021-02-12 14:38 | PCM.OPRPT ---
Problems Associated Problem List Diagnoses (1) DM type 2 causing CKD stage 4: Report of Operation Date of Procedure: 02/12/21 Pre-Operative Diagnosis: Stage IV chronic renal insufficiency in need of arteriovenous hemodialysis access Post-Operative Diagnosis: Same Surgery/Procedure Performed:: Stage II transposition left upper extremity basilic vein to brachial artery arteriovenous hemodialysis fistula creation Description of Surgical Findings:: Timeout informed consent was obtained. 65-year-old gentleman was taken to the operating place upon the table underwent monitored anesthesia care. The left upper extremity was sterilely prepped and draped. 38 cc of 1% lidocaine mixed 50-50 with 0.5% Marcaine and 12 cc of 1/2% lidocaine was used as a local anesthetic. Ultrasound mapping was performed preprocedure. Local was instilled a longitudinal incision was gradually made in the medial aspect of the left upper arm. Tedious sharp and blunt dissection was used to identify the basilic vein. It was gradually and tediously and carefully dissected free. Where needed side branches were secured with hemoclips or 4-0 Vicryl ligatures. The vein was dissected free up to the shoulder area. I then ink marked the anterior surface. I measured the length. An appropriate spot then in the distal left upper arm I did sharp and blunt dissection guided by Doppler to identify the brachial artery. Careful circumferential control was obtained. Then tunneling was performed from the distal upper arm toward the proximal upper arm at the extent of the incision with a curved 6 mm tunneler. The vein was ligated distally with 3-0 Vicryl ligatures and hemoclips. The vein was irrigated single. Suture of 7-0 Prolene was required it was then carefully tunneled making sure that the loose side remained anterior. Having achieved that the patient received 9000 units of heparin intravenously. Peripheral vascular clamps were placed on the brachial artery and 11 blade was used to make an arteriotomy which was extended with Jones scissors. A end-to-side venous to arterial anastomosis was created with a running 7-0 Prolene. Prior to completion there appeared to be good arterial inflow and good arterial outflow. Anastomosis was completed clamps were removed. There was a good pulse and thrill within the fistula. The hand was inspected it was noted to be viable. I did have a 2+ left radial pulse. The patient in aliquots he received a total of 30 mg of protamine as reversal agent. The left upper arm subcutaneous tissues were approximated with simple sutures of 3-0 Vicryl so to incorporate some of the deeper tissue and approximate the space. The skin edges were then approximated running septic of 4-0 Monocryl. Steri-Strips Telfa 4 x 4's ABDs soft roll and Alex wrap applied. Sponge and instrument and needle counts were reported to the surgeon to be correct. Blood loss was minimal. Specimens none. Drains none. Blood loss 100 cc. The patient was taken to the recovery area in satisfactory addition without complication Enoch Dick M.D., F.A.C.S. Surgeon: Enoch Dick Type of Anesthesia: Local MAC Anesthesiologist: Jesús Enamorado
== END 2021-02-12 17:05 | disposition home or self-care (01) ==
LOC: SDC 08:27 → AC 08:28
PROVIDERS: PCP Student in an Organized Health Care Education/Training Program; Referring Provider Surgery; Visit Provider Surgery
PROC: (CPT 36821; principal; 2021-02-12 10:45)
DX: I12.9 Hypertensive chronic kidney disease with stage 1 through stage 4 chronic kidney disease, or unspecified chronic kidney disease (principal); E11.22 Type 2 diabetes mellitus with diabetic chronic kidney disease; N18.4 Chronic kidney disease, stage 4 (severe); J44.9 Chronic obstructive pulmonary disease, unspecified; D63.1 Anemia in chronic kidney disease; I25.10 Atherosclerotic heart disease of native coronary artery without angina pectoris; F32.A Depression, unspecified; E78.5 Hyperlipidemia, unspecified; F17.210 Nicotine dependence, cigarettes, uncomplicated; Z79.4 Long term (current) use of insulin; Z79.899 Other long term (current) drug therapy
CPT/HCPCS: 36821; 36415; 80048; 82962; 84132; 85027; 87426; C9803; J7030; J7120; A4216; J2405

== ENCOUNTER 2021-02-26 04:36 | Inpatient (IN) | payer MEDICARE, SELFPAY ==
[2021-02-26] VITALS (20 sets, daily range): BP systolic 129–184; BP diastolic 64–96; PULSE 89–112; RESP 14–27; TEMP 35.8–37; O2SAT 86–99; BMI 30.7; BMI 28.0
--- NOTE | 2021-02-26 04:53 | RAD_ITS ---
EXAM: XR CHEST, 1 VIEW : 1955 CLINICAL INDICATION: chest pain TECHNIQUE: Frontal view of the chest. This report was created using [employer] report generation technology. COMPARISON: 08/01/18 FINDINGS: LUNGS AND PLEURAL SPACES: Patchy bilateral pulmonary infiltrates. Stable surgical changes in the right lung/hilum with volume loss and blunting of the costophrenic angle. No pneumothorax. No effusion. HEART: Unremarkable. Cardiac silhouette not enlarged. MEDIASTINUM: Central airways and mediastinal contour are unremarkable. BONES/JOINTS: Unremarkable. SOFT TISSUES: Unremarkable. RAD/Chest 1 View (Portable) IMPRESSION: Patchy bilateral pulmonary infiltrates. Findings likely indicate pneumonia. Stable surgical changes in the right lung/hilum with volume loss and blunting of the costophrenic angle. at 0540 Reported and signed by: Zaire Gonzales MD Electronically Signed: Zaire Gonzales MD at 5:40 EST Tel , Service support ,
--- NOTE | 2021-02-26 04:53 | EKG12_ITS ---
Test Reason : SOB Blood Pressure : / mmHG Vent. Rate : 112 BPM Atrial Rate : 112 BPM P-R Int : 216 ms QRS Dur : 114 ms QT Int : 332 ms P-R-T Axes : 000 088 247 degrees QTc Int : 453 ms Sinus tachycardia with 1st degree A-V block Incomplete left bundle branch block Anteroseptal infarct , age undetermined , cannot be excluded Marked ST abnormality, possible inferior subendocardial injury , cannot be excluded Abnormal ECG Confirmed by LAYO ASIF, THU ([id number]), video news editor JARED MADRID ([id number]) on 02/28/2021 11:24:32 AM Referred By: LC Confirmed By:THU VASQUES MD
--- NOTE | 2021-02-26 04:57 | ED.VIS.DYS ---
HPI History of Present Illness Chief Complaint: Shortness of Breath Informant: patient Onset/Context/Timing Onset: Days Context: gradual Timing: Continuous Current Severity: Moderate Maximum Severity: Moderate Worsened by: Exertion, Lying flat and Coughing Relieved by: Rest and Oxygen Associated Symptoms cough and clear sputum; Negative for fever, sore throat, subjective, chills or sweats Chest Pain: Positive for None Narrative Narrative: 65-year-old male extensive past medical history of CAD, MIs, CHF, COPD, chronic kidney disease, diabetes, A. fib, anxiety and GI bleed. He is also a colon cancer in the past. States has been more short of breath for the last 3 days. Denies any chest pain or hemoptysis. He has oxygen at home which he uses as needed. Has not been vaccinated for Covid. He denies any fever or chills. PE Risk Factors: Positive for Recent surgery; Negative for Cancer, OCP + Smoking + > 35, Prior DVT or PE, Recent immobilization and Recent travel Prior similar symptoms: Yes Recent Illness/Hospitalization: No PFSH PFSH Medical History Acute exacerbation of chronic obstructive pulmonary disease (COPD) Acute renal failure superimposed on stage 3 chronic kidney disease Acute renal failure superimposed on stage 4 chronic kidney disease Acute respiratory failure with hypoxemia Anemia Anemia of chronic renal failure Anxiety Atherosclerosis of coronary artery of [place] heart without angina pectoris Back pain C. difficile colitis Cancer Cancer Cardiology follow-up encounter Cholelithiasis Chronic hypoxemic respiratory failure Chronic renal failure, stage 4 (severe) Colon cancer Colon cancer COPD (chronic obstructive pulmonary disease) CPAP (continuous positive airway pressure) dependence Depression Diabetes Diabetes mellitus type 2 in obese Essential (primary) hypertension Former smoker Gastric reflux Gastroenteritis Gout Heme + stool Hemorrhoids High cholesterol History of echocardiogram History of GI bleed History of IBS History of renal disease Hyperkalemia, diminished renal excretion Hyperlipidemia Hypertension Hyponatremia Hypotension, unspecified Increased PTH level Infectious encephalopathy Influenza B Injury of head and neck Insulin dependent diabetes mellitus Iron deficiency anemia Kidney disease Low vitamin D level Lower GI bleed Metabolic acidosis Metabolic acidosis Myocardial infarct Nicotine dependence, cigarettes, in remission Nocturnal hypoxia Non-STEMI (non-ST elevated myocardial infarction) Noncompliance with CPAP treatment NSAID long-term use NSTEMI (non-ST elevated myocardial infarction) (07/2018) NSVT (nonsustained ventricular tachycardia) On home oxygen therapy LADARIUS (obstructive sleep apnea) Paroxysmal atrial fibrillation Peripheral vascular disease Pseudomembranous enterocolitis Radiculopathy affecting upper extremity Septic shock Severe sepsis Severe sepsis Shortness of breath on exertion Skin tear Sleep apnea Stage 3 severe COPD by GOLD classification Streptococcal pneumonia Uremia of renal origin Urinary retention due to benign prostatic hyperplasia Wears dentures Home Medications nitroglycerin 0.4 mg SUBLINGUAL Q5M PRN 05/14/17 [History Last Taken Unknown] oxycodone 5 mg PO BID PRN PRN 05/14/17 [History Last Taken 08/26/20] allopurinol 300 mg PO DAILY 09/15/17 [History Last Taken 08/26/20 08:00] finasteride 5 mg PO DAILY 09/15/17 [History Last Taken 02/12/21] isosorbide mononitrate 30 mg PO DAILY 09/15/17 [History Last Taken 02/12/21] metoprolol succinate 50 mg PO DAILY 09/15/17 [History Last Taken 02/12/21] albuterol sulfate 1 - 2 puff INHALATION Q4H PRN PRN 05/12/18 [History Last Taken 12/05/19] diazepam 5 mg PO BID PRN 05/12/18 [History Last Taken 08/26/20] clopidogrel 75 mg PO DAILY 08/04/18 [History Last Taken 08/26/20] cholecalciferol (vitamin D3) 50 mcg (2,000 unit) capsule 2,000 mcg PO DAILY #90 cap 02/19/19 [History Last Taken 08/26/20] cilostazol 100 mg tablet 100 mg PO QHS tab 09/30/19 [History Last Taken 08/25/20] escitalopram oxalate 20 mg tablet 20 mg PO DAILY 09/30/19 [History Last Taken 08/26/20] ferrous sulfate 325 mg (65 mg iron) tablet 325 mg PO DAILY tab 09/30/19 [History Last Taken 08/26/20] ipratropium 0.5 mg-albuterol 3 mg (2.5 mg base)/3 mL nebulization soln 3 ml INHALATION Q4H PRN ml 09/30/19 [History Last Taken 12/07/19] loperamide 2 mg capsule 2 mg PO Q4H PRN PRN cap 09/30/19 [History Last Taken 12/07/19] rosuvastatin 10 mg tablet 10 mg PO DAILY #90 tab 09/30/19 [History Last Taken 08/25/20] levothyroxine 88 mcg PO DAILY 12/07/19 [History Last Taken 02/12/21] Tresiba U-100 Insulin 30 unit SUBCUT BID 08/26/20 [History Last Taken 08/26/20] pantoprazole 40 mg PO DAILY 08/26/20 [History Last Taken 08/26/20] Anoro Ellipta 1 inh INHALATION Q24H 08/31/20 [History Last Taken 02/12/21] amiodarone 200 mg tablet 200 mg PO DAILY #90 tab 12/04/20 [Rx Last Taken 02/12/21] aspirin 81 mg tablet,delayed release 81 mg PO DAILY 12/11/20 [History Last Taken Unknown] insulin aspart U-100 [Novolog Flexpen U-100 Insulin] 5 units SUBCUT TIDCM 12/25/20 [History Last Taken Unknown] sodium bicarbonate 650 mg PO 4X/DAY 12/25/20 [History Last Taken Unknown] sodium polystyrene sulfonate 15 g PO DIRECTED #45 g 02/07/21 [Rx Last Taken Unknown] Allergy/AdvReac Type Severity Reaction Status Date / Time No Known Allergies Allergy Verified 02/20/21 13:58 Family History Father Leukemia Mother COPD (chronic obstructive pulmonary disease) Surgical History H/O colectomy H/O pneumonectomy History of coronary artery stent placement (05/18/03) History of esophagogastroduodenoscopy (EGD) History of left heart catheterization (11/27/09) Hx of craniotomy S/P arteriovenous (AV) fistula creation Status post colon resection Status post insertion of dialysis catheter (07/2018) Social History household members: spouse housing: other details: mobile home current occupational status: disabled pets and animals: Yes pets and animals: dog(s) Smoking Status: Former smoker quit date: 02/14/17 pack-years: 40 Tobacco: How many years used: 40 second hand exposure: No alcohol intake: never substance use type: does not use ROS ROS ED ROS Narrative Cough, shortness of breath. Review of Systems ROS Unobtainable: Denies due to encephalopathy Constitutional Constitutional ED: Denies chills or fever(s) Eyes Eyes: Denies change in vision ENT ENT ED: Denies ear pain Cardiovascular Cardiovascular: Denies chest pain or palpitations Respiratory/Chest Respiratory/Chest: Reports cough and dyspnea Gastrointestinal Gastrointestinal: Denies abdominal pain, diarrhea, nausea or vomiting Genitourinary Genitourinary ED: Denies dysuria Musculoskeletal Musculoskeletal: Denies myalgias Integumentary Denies rash Neurologic Neurologic: Denies headache(s) Psychiatric Psychiatric: Denies depression Endocrine Endocrinology: Denies polyuria Hematologic/Lymphatic Hematologic/Lymphatic: Denies easy bruising Allergic/Immunologic Allergic/Immunologic ED: Denies urticaria EXAM Physical Exam Narrative Exam Narrative: 65-year-old male increased respiratory rate and wheezing. Initial vital signs blood pressure 184/89. Temperature 98.2. Sat 86% on room air 93% on 3 L. He does not look septic or toxic. He is in mild to moderate respiratory distress. HEENT exam unremarkable. Moist remembers. Neck nontender no lymphadenopathy. No JVD. Lungs wheezing inspiratory expiratory throughout bilaterally. Heart tachycardic rate about 110 no murmur. Chest wall nontender. No crepitus. Abdomen soft nontender. Moving all 4 extremities. Calves are nontender without edema or cords. Neurologically is awake alert. Answering questions following commands. Moving all 4 extremities. Const Vital Signs: 02/26/21 04:39 02/26/21 04:42 02/26/21 04:46 Temperature 98.2 F Temperature Source Temporal Pulse Rate 112 H Respiratory Rate 27 H Respiratory Effort Short of Breath Labored Respiratory Pattern Tachypnea Blood Pressure 184/89 H Blood Pressure Mean 120 Pulse Ox 86 93 Oxygen Delivery Method Room Air Nasal Cannula Nasal Cannula Oxygen Flow Rate (L/min) 3 4 02/26/21 04:52 02/26/21 04:57 02/26/21 05:19 Temperature Temperature Source Pulse Rate 103 H 105 H Respiratory Rate 23 H 24 H Respiratory Effort Respiratory Pattern Blood Pressure 152/96 H Blood Pressure Mean 114 Pulse Ox 97 95 Oxygen Delivery Method Nasal Cannula Nasal Cannula Oxygen Flow Rate (L/min) 4 4 Positive well nourished, well developed and obese; Negative for cachectic, contractures or unkempt General Appearance ED: well developed; Negative for unkempt, cachectic, contractures, NAD or pallor Nutritional Appearance: obese; Negative for cachectic HEENT Reports moist mucous membranes atraumatic; Negative for trauma or tenderness Eyes PERRL and EOMs intact bilaterally Neck no lymphadenopathy, supple, no meningeal signs and no JVD General: Negative for tenderness Resp normal respiratory effort and clear to auscultation bilaterally Auscultation: wheezes; Negative for rales or rhonchi Cardio regular rhythm, S1 normal heart sound, S2 normal heart sound and no murmurs; Negative for regular rate Rate: tachycardic GI non-tender, non-distended and no masses Auscultation: normoactive bowel sounds Palpation: soft; Negative for tender or guarding Back/Spine no CVA tenderness and normal to inspection General Back: Negative for CVA tenderness Extremity normal to inspection General Extremety ED: Negative for edema or tenderness General Extremity: Negative for edema Neuro oriented x3 Sensorium / Orientation: alert, oriented to person, oriented to place and oriented to time; Negative for orientation impaired, confused, lethargic or stuporous Motor Exam: strength 5/5 throughout Psych mental status grossly normal Appearance: Negative for unkempt Mood & Affect: Negative for depressed or tearful Thought Process: normal thought process Skin no wounds General Skin Exam: Negative for jaundice or pallor Lesions: no lesions Rashes: no rashes MDM MDM MDM Narrative Medical decision making narrative: 65-year-old male extensive past medical history with respiratory distress and wheezing. Differential diagnosis with include COPD flare rule out pneumonia rule out Covid rule out CHF versus PE versus cardiac etiology. Be treated with aerosols and Solu-Medrol. Worked up in x-rays and labs. Lab Data Attestation: I reviewed the patient's lab results. Lab results narrative: CBC shows a white count 12.4. Hemoglobin 11.1. Platelet count of 300. Electrolytes potassium of 5.6 gap of 8 BUN is 61 creatinine 3.58 he is a history of renal insufficiency. History of chronic kidney disease. Glucose 268. Troponin 206 and BNP of 384. These are baseline labs for this patient. Rapid Covid antigen test is negative. Labs: Laboratory Results - last 24 hr 02/26/21 02/26/21 02/26/21 04:42 04:42 04:42 WBC 12.4 H RBC 3.74 L Hgb 11.1 L Hct 35.4 L MCV 94.7 H MCH 29.7 MCHC 31.4 L RDW Std Deviation 47.9 H RDW Coeff of Joana 13.7 Plt Count 300 MPV 11.9 Immature Gran % (Auto) 0.800 Neut % (Auto) 83.5 H Lymph % (Auto) 7.0 L [place] % (Auto) 7.0 Eos % (Auto) 1.1 Baso % (Auto) 0.6 Absolute Neuts (auto) 10.3 H Absolute Lymphs (auto) 0.87 Nucleated RBC % 0 Sodium 139 Potassium 5.6 H Chloride 111 H Carbon Dioxide 20.0 L Anion Gap 8 BUN 61 H Creatinine 3.58 H Estim Creat Clear Calc 22.28 Est GFR (MDRD) Af Amer 22 L Est GFR (MDRD) Non-Af 18 L BUN/Creatinine Ratio 17.0 Glucose 268 H Calcium 8.8 Troponin I High Sens 206 H* B-Natriuretic Peptide 384.0 H Radiography Chest X-Ray - ED: 1 View, Read by ED Physician, Right Infiltrate, Left Infiltrate and Right Effusion Diagnostic Testing: Clinical Impression(s) from Imaging Studies Chest X-Ray 02/26/21 04:53 IMPRESSION: Patchy bilateral pulmonary infiltrates. Findings likely indicate pneumonia. Stable surgical changes in the right lung/hilum with volume loss and blunting of the costophrenic angle. at 0540 Reported and signed by: Zaire Gonzales MD Electronically Signed: Zaire Gonzales MD at 5:40 EST Tel , Service support , Chest x-ray, portable, single view interpreted myself and the radiologist shows chronic changes. Bilateral infiltrates. Right pleural effusion. Cannot rule out pulmonary edema. Chronic changes also. Rhythm Strip Rhythm Strip: Sinus Tach Rate: 112 Ectopy: None EKG Initial EKG: Attestation: I personally reviewed and interpreted this EKG as follows: Interpretation: Sinus Rhythm and No Acute Injury Pattern Comments: Sinus tachycardia rate of 112 first-degree AV block with a [place] interval 216. There is ST depression in leads II, III, aVF. But no ST elevation. No acute UT. When compared to prior EKG from August there is new ST depression in inferior and lateral leads. Prior EKG tracings: available for review Prior: Changed Discharge Plan Triage Chief Complaint: Shortness of Breath ED Provider: Vladislav Shahid Dx/Rx/DC Orders Clinical Impression: COPD (chronic obstructive pulmonary disease), Chronic kidney disease, History of diabetes mellitus Prescriptions: No Action cholecalciferol (vitamin D3) 50 mcg (2,000 unit) capsule 2,000 mcg PO DAILY Qty: 90 RF: 0 rosuvastatin 10 mg tablet 10 mg PO DAILY Qty: 90 RF: 0 loperamide 2 mg capsule 2 mg PO Q4H PRN PRN (Reason: Diarrhea) RF: 0 ipratropium-albuterol 0.5 mg-3 mg(2.5 mg base)/3 mL solution for nebulization 3 ml INHALATION Q4H PRN (Reason: shortness of breath or wheezing) RF: 0 escitalopram oxalate [Lexapro] 20 mg tablet 20 mg PO DAILY RF: 0 aspirin 81 mg tablet,delayed release (DR/EC) 81 mg PO DAILY RF: 0 nitroglycerin 0.4 MG tablet 0.4 mg SUBLINGUAL Q5M PRN (Reason: Chest Pain) RF: 0 oxycodone 5 MG tablet 5 mg PO BID PRN PRN (Reason: Pain) RF: 0 allopurinol 300 MG tablet 300 mg PO DAILY RF: 0 finasteride 5 MG tablet 5 mg PO DAILY RF: 0 isosorbide mononitrate 30 MG tablet 30 mg PO DAILY RF: 0 metoprolol succinate 50 MG tablet 50 mg PO DAILY RF: 0 cilostazol 100 mg tablet 100 mg PO QHS RF: 0 albuterol sulfate 1 INHALER inhaler 1 - 2 puff inhalation Q4H PRN PRN (Reason: Wheezing) RF: 0 diazepam 5 MG tablet 5 mg PO BID PRN (Reason: anxiety) RF: 0 clopidogrel 75 MG tablet 75 mg PO DAILY RF: 0 ferrous sulfate 325 mg (65 mg iron) tablet 325 mg PO DAILY RF: 0 levothyroxine 88 MCG tablet 88 mcg PO DAILY RF: 0 pantoprazole 40 mg Tablet,Delayed Release (Dr/Ec) 40 mg PO DAILY RF: 0 Tresiba U-100 Insulin 100 unit/mL Solution 30 unit SUBCUT BID RF: 0 Anoro Ellipta 62.5-25 mcg/actuation blister with device 1 inh inhalation Q24H RF: 0 sodium bicarbonate 650 mg tablet 650 mg PO 4X/DAY RF: 0 insulin aspart U-100 [Novolog Flexpen U-100 Insulin] 100 UNITS/ML insulin pen 5 units subcut TIDCM RF: 0 amiodarone 200 mg tablet 200 mg PO DAILY Qty: 90 RF: 3 sodium polystyrene sulfonate Powder 15 g PO DIRECTED Qty: 45 RF: 0 Primary Care Provider: Jonathan Baptiste Referrals: Jonathan Baptiste DO [Primary Care Provider] - Disposition Disposition: Acute Care Hospital [facility]
[2021-02-26] MEDS: Ipratropium/Albuterol Sulfate 3 ML AMPUL.NEB INHALATION ×4 (04:59→19:46)
[2021-02-26] MEDS: Albuterol 2.5 MG/3 ML VIAL.NEB. INHALATION ×3 (04:59→08:21)
[2021-02-26] MEDS: MethylPREDNISolone 125 MG/2 ML Vial IV (05:04)
[2021-02-26 05:10] LABS: Absolute Lymphocyte Count 0.87 X10^3/uL (0.83-4.51); Absolute Neutrophil Count 10.3 X10^3/uL (2.0-7.7); Basophil# 0.07 X10^3/uL; Basophil% 0.6 % (0-1); Eosinophil# 0.14 X10^3/uL; Eosinophils% 1.1 % (0-5); Hematocrit 35.4 % (40-54); Hemoglobin 11.1 g/dL (13.0-16.5); Lymphocyte # 0.87 X10^3/ul (0.83-4.51); Mean Corp Hgb Conc 31.4 g/dL (32-36); Mean Corpuscular Hgb 29.7 pg (27.0-32.0); Mean Corpuscular Volume 94.7 fL (80-94); Mean Platelet Vol. 11.9 fl (6.2-12.0); Monocyte# 0.87 X10^3/uL; NRBC Flagged by Analyzer 0 % (0-5); Neutrophil # 10.33 X10^3/uL (2.7-7.7); Neutrophil % 83.5 % (47-70); Platelet Count 300 K/mm3 (150-450); RBC Distribution Width CV 13.7 % (11.6-14.6); RBC Distribution Width SD 47.9 fl (35.1-43.9); Red Blood Count 3.74 M/mm3 (4.6-6.2); White Blood Count 12.4 K/mm3 (4.4-11.0)
[2021-02-26 05:59] LABS: Anion Gap 8 (5-15); BUN 61 mg/dL (7-18); Calcium,Total 8.8 mg/dL (8.5-10.1); Chloride 111 mmol/L (98-107); Creatinine, Serum 3.58 mg/dL (0.70-1.30); EST Glomerular Filtration Rate 18 mL/min (>60); Est Glom Filt Rate - Afr Amer 22 mL/min (>60); Estimated Creatinine Clearance 22.28 ml/min; Glucose 268 mg/dL (74-106); Potassium 5.6 mmol/L (3.5-5.1); Sodium Level 139 mmol/L (136-145); Troponin-I HS 206 pg/mL (3.0-78.0)
--- NOTE | 2021-02-26 09:45 | ED.RN ---
sisters phone number, [address] [place]- [phone]
--- NOTE | 2021-02-26 11:01 | PCM.HP.STD ---
HPI - General General Date of Admission: 02/26/21 HPI Narrative BARI KELLY, is a 65 M with an extensive past medical history as outlined which includes COPD who presents via the ED on 02/26/2021 with a complaint of worsening shortness of breath with associated wheezing which had been going on for about a day. Patient denied any fever or chills and admitted to a cough which was nonproductive. He denied any chest pain no palpitations or dizziness. Shortness of breath Gradually worsened to the point where he could not complete sentences on account of shortness of breath. He has a past medical history of smoking and states he stopped smoking a few weeks ago. Vitals at time of admission with temperature of 96.9 Fahrenheit with pulse rate of 100 respiratory rate of 24 and he was saturating at 99% on 3 L of oxygen. CBC showed hemoglobin of 11.1 with WBC of 12.4 and platelets of 300. Chemistry showed potassium of 5.6 with bicarb of 20 and creatinine of 3.58. Initial high-sensitivity troponin was 206. BNP is 384. Chest x-ray showed patchy bilateral pulmonary infiltrates likely indicating pneumonia. Covid test done was negative. He has been admitted to be managed for acute COPD exacerbation with superimposed pneumonia and non-STEMI as well as hyperkalemia. [facility] Medical History (Updated 02/27/21 @ 11:[address] Daysi Magana DO) Acute exacerbation of chronic obstructive pulmonary disease (COPD) Acute renal failure superimposed on stage 3 chronic kidney disease Acute renal failure superimposed on stage 4 chronic kidney disease Acute respiratory failure with hypoxemia Anemia Anemia of chronic renal failure Anxiety Atherosclerosis of coronary artery of [place] heart without angina pectoris Back pain C. difficile colitis Cancer Cancer Cardiology follow-up encounter Cholelithiasis Chronic hypoxemic respiratory failure Chronic renal failure, stage 4 (severe) Colon cancer Colon cancer COPD (chronic obstructive pulmonary disease) CPAP (continuous positive airway pressure) dependence Depression Diabetes Diabetes mellitus type 2 in obese Essential (primary) hypertension Former smoker Gastric reflux Gastroenteritis Gout Heme + stool Hemorrhoids High cholesterol History of echocardiogram History of GI bleed History of IBS History of renal disease Hyperkalemia, diminished renal excretion Hyperlipidemia Hypertension Hyponatremia Hypotension, unspecified Increased PTH level Infectious encephalopathy Influenza B Injury of head and neck Insulin dependent diabetes mellitus Iron deficiency anemia Kidney disease Low vitamin D level Lower GI bleed Metabolic acidosis Metabolic acidosis Myocardial infarct Nicotine dependence, cigarettes, in remission Nocturnal hypoxia Non-STEMI (non-ST elevated myocardial infarction) Noncompliance with CPAP treatment NSAID long-term use NSTEMI (non-ST elevated myocardial infarction) (07/2018) NSVT (nonsustained ventricular tachycardia) On home oxygen therapy LADARIUS (obstructive sleep apnea) Paroxysmal atrial fibrillation Peripheral vascular disease Pseudomembranous enterocolitis Radiculopathy affecting upper extremity Septic shock Severe sepsis Severe sepsis Shortness of breath on exertion Skin tear Sleep apnea Stage 3 severe COPD by GOLD classification Streptococcal pneumonia Uremia of renal origin Urinary retention due to benign prostatic hyperplasia Wears dentures Home Medications nitroglycerin 0.4 mg SUBLINGUAL Q5M PRN 05/14/17 [History Last Taken Unknown] oxycodone 5 mg PO BID PRN PRN 05/14/17 [History Last Taken 08/26/20] allopurinol 300 mg PO DAILY 09/15/17 [History Last Taken 08/26/20 08:00] finasteride 5 mg PO DAILY 09/15/17 [History Last Taken 02/12/21] isosorbide mononitrate 30 mg PO DAILY 09/15/17 [History Last Taken 02/12/21] metoprolol succinate 50 mg PO DAILY 09/15/17 [History Last Taken 02/12/21] albuterol sulfate 1 - 2 puff INHALATION Q4H PRN PRN 05/12/18 [History Last Taken 12/05/19] diazepam 5 mg PO BID PRN 05/12/18 [History Last Taken 08/26/20] clopidogrel 75 mg PO DAILY 08/04/18 [History Last Taken 08/26/20] cholecalciferol (vitamin D3) 50 mcg (2,000 unit) capsule 2,000 mcg PO DAILY #90 cap 02/19/19 [History Last Taken 08/26/20] cilostazol 100 mg tablet 100 mg PO QHS tab 09/30/19 [History Last Taken 08/25/20] escitalopram oxalate 20 mg tablet 20 mg PO DAILY 09/30/19 [History Last Taken 08/26/20] ferrous sulfate 325 mg (65 mg iron) tablet 325 mg PO DAILY tab 09/30/19 [History Last Taken 08/26/20] ipratropium 0.5 mg-albuterol 3 mg (2.5 mg base)/3 mL nebulization soln 3 ml INHALATION Q4H PRN ml 09/30/19 [History Last Taken 12/07/19] loperamide 2 mg capsule 2 mg PO Q4H PRN PRN cap 09/30/19 [History Last Taken 12/07/19] rosuvastatin 10 mg tablet 10 mg PO DAILY #90 tab 09/30/19 [History Last Taken 08/25/20] levothyroxine 88 mcg PO DAILY 12/07/19 [History Last Taken 02/12/21] Tresiba U-100 Insulin 30 unit SUBCUT BID 08/26/20 [History Last Taken 08/26/20] pantoprazole 40 mg PO DAILY 08/26/20 [History Last Taken 08/26/20] Anoro Ellipta 1 inh INHALATION Q24H 08/31/20 [History Last Taken 02/12/21] amiodarone 200 mg tablet 200 mg PO DAILY #90 tab 12/04/20 [Rx Last Taken 02/12/21] aspirin 81 mg tablet,delayed release 81 mg PO DAILY 12/11/20 [History Last Taken Unknown] insulin aspart U-100 [Novolog Flexpen U-100 Insulin] 5 units SUBCUT TIDCM 12/25/20 [History Last Taken Unknown] sodium bicarbonate 650 mg PO 4X/DAY 12/25/20 [History Last Taken Unknown] sodium polystyrene sulfonate 15 g PO DIRECTED #45 g 02/07/21 [Rx Last Taken Unknown] Allergy/AdvReac Type Severity Reaction Status Date / Time No Known Allergies Allergy Verified 02/20/21 13:58 Family History Father Leukemia Mother COPD (chronic obstructive pulmonary disease) Surgical History H/O colectomy H/O pneumonectomy History of coronary artery stent placement (05/18/03) History of esophagogastroduodenoscopy (EGD) History of left heart catheterization (11/27/09) Hx of craniotomy S/P arteriovenous (AV) fistula creation Status post colon resection Status post insertion of dialysis catheter (07/2018) Social History household members: spouse housing: other details: mobile home current occupational status: disabled pets and animals: Yes pets and animals: dog(s) Smoking Status: Former smoker quit date: 02/14/17 pack-years: 40 Tobacco: How many years used: 40 second hand exposure: No alcohol intake: never substance use type: does not use ROS Constitutional Constitutional: Reports fatigue, malaise and weakness ENT HEENT: Denies dysphagia, hearing loss, nasal congestion, sinus pressure or sore throat Cardiovascular Cardiovascular: Reports dyspnea on exertion; Denies chest pain, edema, lightheadedness, orthopnea, palpitations, paroxysmal nocturnal dyspnea, rapid heart rate or syncope Respiratory/Chest Respiratory/Chest: Reports cough, dyspnea, shortness of breath at rest, shortness of breath with exertion and wheezing; Denies excessive phlegm production, hemoptysis or productive cough Gastrointestinal Gastrointestinal: Denies abdominal pain, constipation, diarrhea, dyspepsia, nausea or vomiting Genitourinary Genitourinary: Denies burning urination or dysuria Musculoskeletal Musculoskeletal: Denies back pain or joint swelling Neurologic Neurologic: Reports headache(s); Denies confusion, dizziness, focal weakness, numbness, seizures or syncope Psychiatric Psychiatric: Denies anxiety or depression Endocrine Endocrinology: Denies change in body appearance Vital Signs Vital Signs Vital Signs: 02/26/21 04:39 02/26/21 04:42 02/26/21 04:46 Temperature 98.2 F Temperature Source Temporal Pulse Rate 112 H Respiratory Rate 27 H Respiratory Effort Short of Breath Labored Respiratory Pattern Tachypnea Blood Pressure 184/89 H Blood Pressure Mean 120 Pulse Ox 86 93 Oxygen Delivery Method Room Air Nasal Cannula Nasal Cannula Oxygen Flow Rate (L/min) 3 4 02/26/21 04:52 02/26/21 04:57 02/26/21 05:19 Temperature Temperature Source Pulse Rate 103 H 105 H Respiratory Rate 23 H 24 H Respiratory Effort Respiratory Pattern Blood Pressure 152/96 H Blood Pressure Mean 114 Pulse Ox 97 95 Oxygen Delivery Method Nasal Cannula Nasal Cannula Oxygen Flow Rate (L/min) 4 4 02/26/21 08:05 02/26/21 08:11 02/26/21 08:13 Temperature Temperature Source Pulse Rate 90 Respiratory Rate 14 Respiratory Effort Respiratory Pattern Blood Pressure 155/94 H Blood Pressure Mean 114 Pulse Ox 91 Oxygen Delivery Method Nasal Cannula Nasal Cannula Oxygen Flow Rate (L/min) 4 4 02/26/21 08:23 02/26/21 09:19 02/26/21 10:20 Temperature 98 F Temperature Source Temporal Pulse Rate 94 95 Respiratory Rate 17 16 Respiratory Effort Respiratory Pattern Normal Blood Pressure 171/92 H 155/85 H Blood Pressure Mean 118 108 Pulse Ox 97 94 Oxygen Delivery Method Nasal Cannula Nasal Cannula Oxygen Flow Rate (L/min) 4 4 Weight Weight: 226 lb 10.163 oz Body Mass Index (BMI) 30.7 Physical Exam Const alert, oriented x3 and healthy appearing General Appearance: cooperative HEENT normocephalic, head/scalp atraumatic and hearing grossly normal bilaterally HEENT Narrative: dry mucosa Eyes PERRL, EOMs intact bilaterally and conjunctivae normal Neck no lymphadenopathy and supple Resp Resp Narrative: Bilateral wheezing and rhonchi in all lung [place]. Tachypneic. On 3 L of oxygen. Cardio regular rate, regular rhythm, S1 normal heart sound, S2 normal heart sound and no murmurs GI normal to inspection, nondistended, normoactive bowel sounds, soft to palpation, non-tender and non-distended Extremity normal to inspection, full ROM and no clubbing, cyanosis or edema Peripheral Pulses: Yes pulses 2+ throughout Skin no rashes or lesions noted Neuro oriented x3, CN's II-XII intact bilaterally, moves all extremities and no focal motor deficits Sensorium / Orientation: awake and alert Psych affect normal Results Lab / Micro Data Result Diagrams: 02/27/21 05:10 02/27/21 05:01 Labs: Laboratory Results - last 24 hr 02/26/21 04:42: WBC 12.4 H, RBC 3.74 L, Hgb 11.1 L, Hct 35.4 L, MCV 94.7 H, MCH 29.7, MCHC 31.4 L, RDW Std Deviation 47.9 H, RDW Coeff of Joana 13.7, Plt Count 300, MPV 11.9, Immature Gran % (Auto) 0.800, Neut % (Auto) 83.5 H, Lymph % (Auto) 7.0 L, Harmon % (Auto) 7.0, Eos % (Auto) 1.1, Baso % (Auto) 0.6, Absolute Neuts (auto) 10.3 H, Absolute Lymphs (auto) 0.87, Nucleated RBC % 0 02/26/21 04:42: Sodium 139, Potassium 5.6 H, Chloride 111 H, Carbon Dioxide 20.0 L, Anion Gap 8, BUN 61 H, Creatinine 3.58 H, Estim Creat Clear Calc 22.28, Est GFR (MDRD) Af Amer 22 L, Est GFR (MDRD) Non-Af 18 L, BUN/Creatinine Ratio 17.0, Glucose 268 H, Calcium 8.8, Troponin I High Sens 206 H* 02/26/21 04:42: B-Natriuretic Peptide 384.0 H Micro: Microbiology 02/26/21 04:42 Nasal Secretion SARS-CoV-2 Antigen (Rapid) - Final Rhythm Strip Rhythm Strip: Sinus Tach Rate: 112 Ectopy: None Radiology Impression Chest X-Ray 02/26/21 04:53 IMPRESSION: Patchy bilateral pulmonary infiltrates. Findings likely indicate pneumonia. Stable surgical changes in the right lung/hilum with volume loss and blunting of the costophrenic angle. at 0540 Reported and signed by: Zaire Gonzales MD Electronically Signed: Zaire Gonzales MD at 5:40 EST Tel , Service support , Assessment & Plan Assessment/Plan (1) COPD (chronic obstructive pulmonary disease): (2) Elevated troponin: (3) Hyperkalemia: PLAN: #Acute on chronic COPD exacerbation Admit to [facility] telemetry. Start on IV Solu-Medrol 40 mg twice q8. Start on IV Levaquin on account of chest x-ray findings also Breathing treatments bronchodilators. Titrate oxygen to maintain saturation above 90%. Chest physiotherapy #Elevated troponin Initial high-sensitivity troponin was 206. Patient does have history of CKD stage III and creatinine was like 3. We will therefore trend troponin and see; there is an upward trend and will be very concerning for non-STEMI. Will order 2D echo and consult cardiology as well. Already on aspirin and Plavix as well as statin #Hyperkalemia: Potassium is 5.6. Will give Kayexalate 30 g x 1 and trend. #A. fib: Currently rate controlled. On amiodarone and metoprolol #Type 2 diabetes mellitus: Lantus 30 units twice daily. Insulin sliding scale. Accu-Cheks AC at bedtime. #Depression: on escitalopram DVT prophylaxis: lovenox, renally dosed. Code status: full code. Patient counseled extensively about different types of CODE STATUS including full code, DNR CCA and DNR CCA. Patient elects to be full code. Total [id number] time 17 minutes. Charges/Coding Visit Charges Inpatient E&M: 75344 Init Hosp L3 Procedures Hospitalists Procedures: 08880 Advncd Care Plan 30 Min
--- NOTE | 2021-02-26 12:25 | CASEMGMT ---
RN KERI Face to Face with patient for initial transition planning/care coordination assessment. RN CM introduced self and role at [facility]. Patient lying in bed, alert and oriented, at bedside. Patient willing to participate in assessment and is able to answer all questions appropriately. Care providers, pharmacy, and demographics verified. Patient wishes to discharge home, denies need for home health at this time. Patient states he has no further needs or concerns at this time. CM to follow for discharge planning needs that may arise. PCP: Em[facility] Specialists: Chino, airport operations manager; Dago, anvil worker; Mayelin, surgeon; Cain, vmware consultant Preferred Pharmacy: [facility] Insurance: [employer] Prescription Benefit: yes Living Will/HPOA: none, interested in completed, SW updated LNOK: sisters Living Arrangements: patient lives alone in a mobile home with 5 steps to enter the home. Patient states he is independent at home. Transportation: self/sisters DME/HHC: Patient states he has shower chair, raised toilet, cane, walker, hospital bed, grab bars, nebulizer, oxygen portable tank through [facility]. Patient denies previous HHC or SNF. Disposition Plan: Patient to discharge home with family support and follow-up plans in place. Alina PATHAK, RN, CM
[2021-02-26 12:30] LABS: Bedside Glucose 340 mg/dL (70-110)
[2021-02-26] MEDS: Umeclidinium Brm/Vilanterol 62.5-25 mcg Inh 1 PUFF INHALATION (12:42)
[2021-02-26] MEDS: Insulin Lispro 100 UNIT/ML INSULN.PEN SC ×5 (12:43→20:42)
[2021-02-26] MEDS: Sodium Bicarbonate 650 MG Tablet PO ×3 (12:46→20:42)
[2021-02-26] MEDS: 0.9% Saline Lock 10 ML Syringe IV ×2 (12:46→20:46)
[2021-02-26] MEDS: Sodium Polystyrene Sulfonate 15 GM/60 ML UDC 30 GM PO (14:00)
--- NOTE | 2021-02-26 14:56 | CASEMGMT ---
Social Work SW met w/pt to assist with completion of LW/POA forms. Pt is not sure today who he would put down as his medical POA, he would like to think about it, and he's not feeling very good today. Pt spoke of his sisters as being supportive. He states his 8 months ago. Pt then went on to explain that he came to the hospital because he was having trouble breathing. Pt states he has had a few panic attacks over the last few days. He states has had panic attacks for three or four years, he states it's from being short of breath, and from nerves. He states he takes lorazepam for it, but only took one. He states he wonders if he should have taken another one or two, maybe it would have helped. We talked about being short of breath from COPD vs anxiety, and how the two feed into each other. SW explained that coming to the hospital was a good choice given his symptoms, vs taking extra lorazepam. We spoke about his recent loss of his . He states they were for 30 years. He states he didn't have as many symptoms when she was alive. SW offered support. SW inquired w/pt if he would be interested in counseling, he is open to the idea. SW explained will bring him a list of local organizations for therapy. SW also spoke w/pt about palliative care, pt is open to a palliative care referral as well. SW spoke w/pt about his home oxygen. Pt states he had a concentrator through [employer], however he switched insurance and [employer] does not take his [employer] plan. They referred pt to a company in [place], but pt states he did not want to drive to [place] to get oxygen supplies. He also states he wasn't needing oxygen much, was using it once every 6 months, so did not get a new concentrator. SW will follow up w/pt tomorrow regarding LW/POA, and bring pt a list of local mental health agencies. BRENT Hernandez
--- NOTE | 2021-02-26 15:34 | CASEMGMT ---
DEVEN SAAVEDRA NOTE: Palliative screening tool and demographics sheet emailed to Palliative and order placed for referral. TC to [facility] to notify her of Palliative referral. Shirley PATHAK RN CM
[2021-02-26 16:04] LABS: Troponin-I HS 2923 pg/mL (3.0-78.0)
[2021-02-26] MEDS: Ceftriaxone 1 GM/50 ML BAG IV (16:56)
[2021-02-26 17:11] LABS: Bedside Glucose 458 mg/dL (70-110)
--- NOTE | 2021-02-26 17:20 | CHAPLAIN ---
Type of Pastoral Visit _x__ Initial Visit ___ Follow-up Visit ___ On-call Visit ___ General Patient Visit ___ Spiritual Assessment ___ Family Conference ___ Bereavement ___ Rapid Response ___ Code Blue ___ Other (describe below) Pastoral Care Referral From _x__ Patient ___ Family ___ Nurse ___ Physician ___ Stock Hanger ___ Sheet Finisher ___ Other (describe below) Sacrament/Intervention _x__ Active listening ___ Anointing ___ Oriental Orthodox ___ Bereavement ___ Communion ___ Marija exploration ___ _x__ Life review _x__ Prayer ___ Reconciliation ___ Sacrament of Sick _x__ Supportive presence ___ Wedding ___ Other (describe below) Pastoral Comments patient lives alone and relies on two sisters for assistance as needed; spouse 8 months ago
--- NOTE | 2021-02-26 17:48 | PCM.CONS.C ---
Assessment & Plan Assessment/Plan (1) Elevated troponin: PLAN: He does have evidence of a non-ST elevation myocardial infarction. He has prior stents which were noted in his LAD and circumflex artery. At this time I would recommend that we consider evaluation of his coronary anatomy. However due to his renal dysfunction we may need to consult with nephrology to see whether any administration of dye would lead to early dialysis. Depending on the recommendations for the suggestions will be made. In the meantime would recommend an echocardiogram to assess his ventricular function He will remain on the beta-tanner at this time. (2) History of coronary artery stent placement: PLAN: He is status post previous angioplasty and stenting as noted above in 2003. He likely has progression of his disease. (3) Paroxysmal atrial fibrillation: PLAN: Does have a history of paroxysmal atrial fibrillation. He is maintaining sinus rhythm at this time. He will remain on the amiodarone. (4) Chronic kidney disease: PLAN: He does have renal dysfunction with impending dialysis. HPI Consult Data Date of Consult: 02/26/21 HPI Narrative HPI Narrative: BARI KELLY, is a 65 M who presents with a history which includes COPD who presents via the ED on 02/26/2021 with a complaint of worsening shortness of breath with associated wheezing which had been going on for about a day. He does have a history of previous LAD stent as well as circumflex artery stent in 2003. In addition he has a history of hypertension peripheral vascular disease diabetes mellitus and paroxysmal atrial fibrillation. He recently had a fistula placed for impending dialysis. Patient denied any fever or chills and admitted to a cough which was nonproductive. He denied any chest pain no palpitations or dizziness. Shortness of breath Gradually worsened to the point where he could not complete sentences on account of shortness of breath. He has a past medical history of smoking and states he stopped smoking a few weeks ago. Vitals at time of admission with temperature of 96.9 Fahrenheit with pulse rate of 100 respiratory rate of 24 and he was saturating at 99% on 3 L of oxygen. CBC showed hemoglobin of 11.1 with WBC of 12.4 and platelets of 300. Chemistry showed potassium of 5.6 with bicarb of 20 and creatinine of 3.58. Initial high-sensitivity troponin was 206. BNP is 384. Chest x-ray showed patchy bilateral pulmonary infiltrates likely indicating pneumonia. Cardiology was called to see him due to his elevated high-sensitivity troponin levels. [facility] Medical History Acute exacerbation of chronic obstructive pulmonary disease (COPD) Acute renal failure superimposed on stage 3 chronic kidney disease Acute renal failure superimposed on stage 4 chronic kidney disease Acute respiratory failure with hypoxemia Anemia Anemia of chronic renal failure Anxiety Atherosclerosis of coronary artery of unga heart without angina pectoris Back pain C. difficile colitis Cancer Cancer Cardiology follow-up encounter Cholelithiasis Chronic hypoxemic respiratory failure Chronic renal failure, stage 4 (severe) Colon cancer Colon cancer COPD (chronic obstructive pulmonary disease) CPAP (continuous positive airway pressure) dependence Depression Diabetes Diabetes mellitus type 2 in obese Essential (primary) hypertension Former smoker Gastric reflux Gastroenteritis Gout Heme + stool Hemorrhoids High cholesterol History of echocardiogram History of GI bleed History of IBS History of renal disease Hyperkalemia, diminished renal excretion Hyperlipidemia Hypertension Hyponatremia Hypotension, unspecified Increased PTH level Infectious encephalopathy Influenza B Injury of head and neck Insulin dependent diabetes mellitus Iron deficiency anemia Kidney disease Low vitamin D level Lower GI bleed Metabolic acidosis Metabolic acidosis Myocardial infarct Nicotine dependence, cigarettes, in remission Nocturnal hypoxia Non-STEMI (non-ST elevated myocardial infarction) Noncompliance with CPAP treatment NSAID long-term use NSTEMI (non-ST elevated myocardial infarction) (07/2018) NSVT (nonsustained ventricular tachycardia) On home oxygen therapy LADARIUS (obstructive sleep apnea) Paroxysmal atrial fibrillation Peripheral vascular disease Pseudomembranous enterocolitis Radiculopathy affecting upper extremity Septic shock Severe sepsis Severe sepsis Shortness of breath on exertion Skin tear Sleep apnea Stage 3 severe COPD by GOLD classification Streptococcal pneumonia Uremia of renal origin Urinary retention due to benign prostatic hyperplasia Wears dentures Home Medications nitroglycerin 0.4 mg SUBLINGUAL Q5M PRN 05/14/17 [History Last Taken Unknown] oxycodone 5 mg PO BID PRN PRN 05/14/17 [History Last Taken 08/26/20] allopurinol 300 mg PO DAILY 09/15/17 [History Last Taken 08/26/20 08:00] finasteride 5 mg PO DAILY 09/15/17 [History Last Taken 02/12/21] isosorbide mononitrate 30 mg PO DAILY 09/15/17 [History Last Taken 02/12/21] metoprolol succinate 50 mg PO DAILY 09/15/17 [History Last Taken 02/12/21] albuterol sulfate 1 - 2 puff INHALATION Q4H PRN PRN 05/12/18 [History Last Taken 12/05/19] diazepam 5 mg PO BID PRN 05/12/18 [History Last Taken 08/26/20] clopidogrel 75 mg PO DAILY 08/04/18 [History Last Taken 08/26/20] cholecalciferol (vitamin D3) 50 mcg (2,000 unit) capsule 2,000 mcg PO DAILY #90 cap 02/19/19 [History Last Taken 08/26/20] cilostazol 100 mg tablet 100 mg PO QHS tab 09/30/19 [History Last Taken 08/25/20] escitalopram oxalate 20 mg tablet 20 mg PO DAILY 09/30/19 [History Last Taken 08/26/20] ferrous sulfate 325 mg (65 mg iron) tablet 325 mg PO DAILY tab 09/30/19 [History Last Taken 08/26/20] ipratropium 0.5 mg-albuterol 3 mg (2.5 mg base)/3 mL nebulization soln 3 ml INHALATION Q4H PRN ml 09/30/19 [History Last Taken 12/07/19] loperamide 2 mg capsule 2 mg PO Q4H PRN PRN cap 09/30/19 [History Last Taken 12/07/19] rosuvastatin 10 mg tablet 10 mg PO DAILY #90 tab 09/30/19 [History Last Taken 08/25/20] levothyroxine 88 mcg PO DAILY 12/07/19 [History Last Taken 02/12/21] Tresiba U-100 Insulin 30 unit SUBCUT BID 08/26/20 [History Last Taken 08/26/20] pantoprazole 40 mg PO DAILY 08/26/20 [History Last Taken 08/26/20] Anoro Ellipta 1 inh INHALATION Q24H 08/31/20 [History Last Taken 02/12/21] amiodarone 200 mg tablet 200 mg PO DAILY #90 tab 12/04/20 [Rx Last Taken 02/12/21] aspirin 81 mg tablet,delayed release 81 mg PO DAILY 12/11/20 [History Last Taken Unknown] insulin aspart U-100 [Novolog Flexpen U-100 Insulin] 5 units SUBCUT TIDCM 12/25/20 [History Last Taken Unknown] sodium bicarbonate 650 mg PO 4X/DAY 12/25/20 [History Last Taken Unknown] sodium polystyrene sulfonate 15 g PO DIRECTED #45 g 02/07/21 [Rx Last Taken Unknown] Allergy/AdvReac Type Severity Reaction Status Date / Time No Known Allergies Allergy Verified 02/20/21 13:58 Family History Father Leukemia Mother COPD (chronic obstructive pulmonary disease) Surgical History H/O colectomy H/O pneumonectomy History of coronary artery stent placement (05/18/03) History of esophagogastroduodenoscopy (EGD) History of left heart catheterization (11/27/09) Hx of craniotomy S/P arteriovenous (AV) fistula creation Status post colon resection Status post insertion of dialysis catheter (07/2018) Social History household members: spouse housing: other details: mobile home current occupational status: disabled pets and animals: Yes pets and animals: dog(s) Smoking Status: Former smoker quit date: 02/14/17 pack-years: 40 Tobacco: How many years used: 40 second hand exposure: No alcohol intake: never substance use type: does not use ROS Constitutional Constitutional: Denies fever(s) or weight loss Eyes Eyes: Reports systems reviewed and no addt'l complaints, except as documented ENT HEENT: Reports systems reviewed and no addt'l complaints, except as documented Cardiovascular Cardiovascular: Denies chest pain at rest, chest pain with activity, dyspnea at rest, dyspnea on exertion, edema, palpitations or paroxysmal nocturnal dyspnea Respiratory/Chest Respiratory/Chest: Denies dyspnea on exertion, productive cough, shortness of breath at rest or shortness of breath with exertion Gastrointestinal Gastrointestinal: Denies change in bowel habits, nausea, vomiting or weight changes Genitourinary Genitourinary: Denies difficulty urinating Musculoskeletal Musculoskeletal: Denies joint stiffness or muscle weakness Integumentary Integumentary: Denies lesions Neurologic Neurologic: Denies dizziness or syncope Psychiatric Psychiatric: Denies anxiety Endocrine Endocrinology: Denies excessive sweating or fatigue Hematologic/Lymphatic Hematologic/Lymphatic: Denies anemia Allergic/Immunologic Allergic/Immunologic: Denies seasonal rhinorrhea Physical Exam Const alert, oriented x3 and no apparent distress General Appearance: cooperative HEENT hearing grossly normal bilaterally Head and Scalp: atraumatic Eyes EOMs intact bilaterally Neck General: normal visual inspection Chest inspection of chest normal and palpation of chest normal Resp normal respiratory effort Auscultation: clear to auscultation bilaterally Cardio regular rate, regular rhythm, S1 normal heart sound and S2 normal heart sound Jugular Venous Distention: JVD GI normal to inspection, nondistended, normoactive bowel sounds Extremity normal capillary refill and no pedal edema Peripheral Pulses: Yes pulses 2+ throughout and femoral pulses present Skin no rashes or lesions noted Neuro oriented x3 and CN's II-XII intact bilaterally Psych Appearance: grossly normal and appropriate Risk Stratification Risk Stratification Applicable: No Objective Data Vital Signs: Vital Signs Temp Pulse Resp BP Pulse Ox 96.5 F L 94 18 129/64 H 96 02/26/21 17:02 02/26/21 17:02 02/26/21 17:02 02/26/21 17:02 02/26/21 17:02 Oxygen Flow Rate (L/min) 3 Oxygen Delivery Method Nasal Cannula Weight: 207 lb 3.752 oz Body Mass Index (BMI) 28.0 Intake & Output: Intake and Output for Last 24 Hours 02/24/21 02/25/21 02/26/21 23:59 23:59 23:59 Intake Total 850 / 850 Balance 850 / 850 Lab / Micro Data Result Diagrams: 02/26/21 04:42 02/26/21 04:42 Labs: Laboratory Results - last 24 hr 02/26/21 04:42: WBC 12.4 H, RBC 3.74 L, Hgb 11.1 L, Hct 35.4 L, MCV 94.7 H, MCH 29.7, MCHC 31.4 L, RDW Std Deviation 47.9 H, RDW Coeff of Joana 13.7, Plt Count 300, MPV 11.9, Immature Gran % (Auto) 0.800, Neut % (Auto) 83.5 H, Lymph % (Auto) 7.0 L, Coryell % (Auto) 7.0, Eos % (Auto) 1.1, Baso % (Auto) 0.6, Absolute Neuts (auto) 10.3 H, Absolute Lymphs (auto) 0.87, Nucleated RBC % 0 02/26/21 04:42: Sodium 139, Potassium 5.6 H, Chloride 111 H, Carbon Dioxide 20.0 L, Anion Gap 8, BUN 61 H, Creatinine 3.58 H, Estim Creat Clear Calc 22.28, Est GFR (MDRD) Af Amer 22 L, Est GFR (MDRD) Non-Af 18 L, BUN/Creatinine Ratio 17.0, Glucose 268 H, Calcium 8.8, Troponin I High Sens 206 H* 02/26/21 04:42: B-Natriuretic Peptide 384.0 H 02/26/21 12:28: POC Glucose 340 H 02/26/21 15:35: Troponin I High Sens 2923 H* 02/26/21 16:55: POC Glucose 458 H* Micro: Microbiology 02/26/21 04:42 Nasal Secretion SARS-CoV-2 Antigen (Rapid) - Final Rhythm Strip Rhythm Strip: Sinus Tach Rate: 112 Ectopy: None Cardiology Labs/Tests 02/26/21 04:42: WBC 12.4 H, RBC 3.74 L, Hgb 11.1 L, Hct 35.4 L, MCV 94.7 H, MCH 29.7, MCHC 31.4 L, Plt Count 300, MPV 11.9, Immature Gran % (Auto) 0.800, Neut % (Auto) 83.5 H, Lymph % (Auto) 7.0 L, Coryell % (Auto) 7.0, Eos % (Auto) 1.1, Baso % (Auto) 0.6, Absolute Neuts (auto) 10.3 H, Nucleated RBC % 0 02/26/21 04:42: Sodium 139, Potassium 5.6 H, Chloride 111 H, Carbon Dioxide 20.0 L, Anion Gap 8, BUN 61 H, Creatinine 3.58 H, Est GFR (MDRD) Af Amer 22 L, Est GFR (MDRD) Non-Af 18 L, BUN/Creatinine Ratio 17.0, Glucose 268 H, Calcium 8.8 02/26/21 04:42: B-Natriuretic Peptide 384.0 H Rhythm: EKG: ECHO: Stress Test: Cardiac Cath: PCI: CT Surgery: Holter monitor: EPS: PPM: CXR: Chest CT Scan: Radiography Diagnostic Testing: Radiology Impression Chest X-Ray 02/26/21 04:53 IMPRESSION: Patchy bilateral pulmonary infiltrates. Findings likely indicate pneumonia. Stable surgical changes in the right lung/hilum with volume loss and blunting of the costophrenic angle. at 0540 Reported and signed by: Zaire Gonzales MD Electronically Signed: Zaire Gonzales MD at 5:40 EST Tel , Service support ,
[2021-02-26 19:23] LABS: Troponin-I HS 3123 pg/mL (3.0-78.0)
--- NOTE | 2021-02-26 19:27 | NURSING ---
DEVEN Winter charge aware of critical troponin 3123. DEVEN Kramer in with another patient at this time.
[2021-02-26] MEDS: Cilostazol 50 MG Tablet 100 MG PO (20:42)
[2021-02-26] MEDS: Atorvastatin Calcium 20 MG Tablet PO (20:42)
[2021-02-26] MEDS: Enoxaparin 80 MG/0.8 ML Syringe SC (20:44)
[2021-02-26 20:46] LABS: Bedside Glucose 222 mg/dL (70-110)
[2021-02-26 22:47] LABS: Troponin-I HS 3294 pg/mL (3.0-78.0)
[2021-02-27] VITALS (14 sets, daily range): BP systolic 117–143; BP diastolic 56–89; PULSE 85–100; RESP 16–20; TEMP 36.3–36.8; O2SAT 93–99
[2021-02-27] MEDS: Ipratropium/Albuterol Sulfate 3 ML AMPUL.NEB INHALATION ×4 (01:47→19:07)
[2021-02-27] MEDS: Levothyroxine 88 MCG Tablet PO (05:04)
[2021-02-27] MEDS: 0.9% Saline Lock 10 ML Syringe IV ×3 (05:04→15:21)
[2021-02-27] MEDS: diazePAM 5 MG Tablet PO (05:23)
--- NOTE | 2021-02-27 05:55 | ECHOCS_ITS ---
Reason For Study: DYSPNEA Procedure This was a 2D Doppler, Color Flow transthoracic echocardiogram. The study was technically difficult. Contrast injection was performed. Exam performed portable in patient room. Left Ventricle Normal LV size. Segmental dysfunction with preserved ejection fraction (see wall motion). The estimated ejection fraction is 55 %. There is evidence of diastolic dysfunction. Mid-Anterior : Hypokinetic. Mid-Lateral : Hypokinetic. Anterior Star[place] : Hypokinetic. Lateral [place] : Hypokinetic. Right Ventricle Normal RV size. Normal systolic function. Atria The left atrium is mildly enlarged. Normal right atrium. No doppler evidence for ASD. Mitral Valve There is no mitral annular calcification. Normal mitral valve. Trivial mitral valve insufficiency. Tricuspid Valve Normal tricuspid valve. Trivial tricuspid valve insufficiency. Right ventricular systolic pressure estimated to be 41 mmHg. Aortic Valve Trisinus/trileaflet aortic valve. Mild focal aortic valve calcification. Pulmonic Valve The pulmonic valve is not well visualized. Trivial pulmonic valve insufficiency. Great Vessels Normal sized aortic root. Pericardium/Pleural No pericardial effusion. Medication Diluted definity 4.0ml given slow IV push to enhance endocardial definition. MMode/2D Measurements & Calculations LVIDd: 5.8 cm IVSd: 0.83 cm Ao root diam: 3.2 cm LVIDs: 4.2 cm LVPWd: 1.0 cm RVDd: 4.2 cm FS: 28.0 % LAV(MOD-bp): 75.0 ml LA A4 area: 23.5 cm2 LA dimension(2D): 4.0 cm LAV(MOD-bp) Indexed: 34.7 ml/m2 LAV(MOD-sp2): 76.5 ml LAV(MOD-sp4): 71.8 ml RA A4 area: 15.8 cm2 Doppler Measurements & Calculations MV E max jaun: 102.8 cm/sec Lat Peak E' Jaun: 9.3 cm/sec Med Peak E' Jaun: 12.2 cm/sec MV A max jaun: 139.3 cm/sec E/E' lat: 11.1 E/E' med: 8.4 MV E/A: 0.74 MV V2 max: 163.1 cm/sec Ao V2 max: 113.2 cm/sec LV V1 max: 104.0 cm/sec MV max P.7 mmHg Ao max P.1 mmHg LV V1 max P.3 mmHg MV V2 mean: 97.1 cm/sec MV mean P.2 mmHg MV V2 VTI: 36.2 cm PA V2 max: 84.6 cm/sec TR max jaun: 306.4 cm/sec MV P1/2t-pr_phl: 90.7 msec TR max P.6 mmHg ECHO/Echo Complete W/ Contrast Interpretation Summary The study was technically difficult. Contrast injection was performed. Segmental dysfunction with preserved ejection fraction (see wall motion). The estimated ejection fraction is 55 %. The left atrium is mildly enlarged. Trivial mitral valve insufficiency. Trivial tricuspid valve insufficiency. Mild focal aortic valve calcification. Trivial pulmonic valve insufficiency. Right ventricular systolic pressure estimated to be 41 mmHg. There is evidence of diastolic dysfunction. Ordering Physician: Angeles Howe Referring Physician: INES STAUFFER Performed By: Mae Hardy RDCS, RVT
[2021-02-27 06:07] LABS: Absolute Lymphocyte Count 0.64 X10^3/uL (0.83-4.51); Absolute Neutrophil Count 15.2 X10^3/uL (2.0-7.7); Hematocrit 31.8 % (40-54); Lymphocyte # 0.64 X10^3/ul (0.83-4.51); Lymphocyte % 3.9 % (19-41); Mean Corp Hgb Conc 31.4 g/dL (32-36); Mean Corpuscular Hgb 29.7 pg (27.0-32.0); Mean Corpuscular Volume 94.4 fL (80-94); Mean Platelet Vol. 12.3 fl (6.2-12.0); Monocyte# 0.24 X10^3/uL; Monocyte% 1.5 % (0-10); NRBC Flagged by Analyzer 0 % (0-5); Neutrophil # 15.23 X10^3/uL (2.7-7.7); Neutrophil % 93.9 % (47-70); Platelet Count 295 K/mm3 (150-450); RBC Distribution Width CV 13.9 % (11.6-14.6); RBC Distribution Width SD 47.8 fl (35.1-43.9); Red Blood Count 3.37 M/mm3 (4.6-6.2); White Blood Count 16.2 K/mm3 (4.4-11.0)
[2021-02-27 06:31] LABS: Anion Gap 7 (5-15); BUN 76 mg/dL (7-18); BUN/Creat Ratio 20.4 RATIO (10-20); Chloride 112 mmol/L (98-107); Creatinine, Serum 3.73 mg/dL (0.70-1.30); EST Glomerular Filtration Rate 17 mL/min (>60); Est Glom Filt Rate - Afr Amer 21 mL/min (>60); Estimated Creatinine Clearance 21.38 ml/min; Glucose 263 mg/dL (74-106); Potassium 5.9 mmol/L (3.5-5.1); Sodium Level 139 mmol/L (136-145)
--- NOTE | 2021-02-27 08:19 | PCM.CONS.P ---
Assessment & Plan Assessment/Plan (1) Shortness of breath: (2) Acute on chronic kidney failure: QUALIFIERS: Acute renal failure type: unspecified Chronic kidney disease stage: stage 4 (severe) Qualified Code(s): N17.9 - Acute kidney failure, unspecified; N18.4 - Chronic kidney disease, stage 4 (severe) (3) Acute and chronic respiratory failure with hypoxia: (4) Hyperkalemia: (5) DM type 2 causing CKD stage 4: QUALIFIERS: Diabetes mellitus catering attendant insulin use: with longterm use Qualified Code(s): E11.22 - Type 2 diabetes mellitus with diabetic chronic kidney disease; N18.4 - Chronic kidney disease, stage 4 (severe); 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 of 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 (6) Chronic renal failure, stage 4 (severe): (7) History of coronary artery stent placement: (8) Atherosclerosis of coronary artery of [place] heart without angina pectoris: QUALIFIERS: Coronary Disease-Associated Artery/Lesion type: [place] artery Qualified Code(s): I25.10 - Atherosclerotic heart disease of [place] coronary artery without angina pectoris (9) NSTEMI (non-ST elevated myocardial infarction): (10) Paroxysmal atrial fibrillation: (11) Peripheral vascular disease: (12) LADARIUS (obstructive sleep apnea): (13) Stage 3 severe COPD by GOLD classification: (14) Anemia of chronic renal failure: QUALIFIERS: Chronic kidney disease stage: stage 4 (severe) Qualified Code(s): N18.4 - Chronic kidney disease, stage 4 (severe); D63.1 - Anemia in chronic kidney disease (15) Colon cancer: QUALIFIERS: Colon location: unspecified part of colon Qualified Code(s): C18.9 - Malignant neoplasm of colon, unspecified PLAN: 65-year-old male with history of multiple NSTEMI's, CHF, and COPD, admitted with pneumonia and acute on chronic renal failure, as well as acute on chronic hypoxemic respiratory failure. 1. Shortness of breath: Multifactorial with NSTEMI/pneumonia/COPD/respiratory failure. Quit smoking a few weeks ago again, smoking cessation reviewed. Would not initiate any medications in addition to what is already ordered for his dyspnea, treat underlying causes. Potential heart catheterization to assess coronaries but would not need medically optimized prior to proceeding and clearance from nephrology. 2. Anxiety/panic disorder: Controlled at home on Valium. He is also on escitalopram 20 mg daily. May need some medication adjustments given acute illness and breathing difficulties, however monitor for now. 3. T2 DM/CKD stage IV/CAD status post stents/PAF/PVD/LADARIUS/anemia of chronic renal failure/history of colon cancer: Complicates overall care, management, recovery, and prognosis. Nephrology and cardiology following. He did have a recent fistula placed by Dr. Dick. Unclear if nephrology will initiate dialysis at this point or not. Defer management Thank you for the opportunity to participate in this patient's care, please do not hesitate to contact [facility] with any further questions or concerns. Palliative direct line is [phone]. We will follow up after discharge and will discuss palliative services further at that time. I did leave my contact information and patient expressed interest in palliative upon discharge. Greater than 50% of F2F visit dedicated to education and counseling of palliative care services, medications, comorbid conditions and potential assistance with management, and plan of care moving forward. Start time: 818 End time: 906 HPI Consult Data Date of Consult: 02/27/21 HPI Narrative HPI Narrative: BARI KELLY, is a 65 M who presented to [facility] 02/26/2021 with complaints of progressive short of breath and wheezing over the course of about 2-3 days. Patient does have a history of COPD, CHF and chronic hypoxemic respiratory failure with as needed supplemental oxygen use at home. He is unvaccinated for Covid. Patient is a former smoker, quit a few weeks ago. Blood work showed a mild leukocytosis and elevated troponins. He also has some renal dysfunction. Chest x-ray showed patchy bilateral pulmonary infiltrates and stable surgical changes in the right lung with volume loss and blunting of costophrenic angle. Patient was admitted to [facility] for further evaluation and management of non-STEMI, bilateral pneumonia, COPD exacerbation, and acute on chronic renal failure. Patient does follow with pulmonary medicine of [facility], but was lost to follow-up but had visit in August 2020. He sees them for severe obstructive lung disease and LADARIUS, however patient noted to be no longer compliant with use of PAP therapy. He had a fistula placed in December 2020. Patient lives alone in a mobile home with 5 steps to enter, typically independent. He has DME in the home including a shower chair, raised toilet, cane, walker, hospital bed, grab bars, nebulizer, and portable oxygen tank. He follows with Dr. Magana, nephrology and Dr. Garces for cardiology. Dr. Barlow is his transitional care nurse and Dr. Dick surgeon for fistula. Patient is mildly short of breath, audible wheezing. Denies any nausea vomiting or diarrhea. Bowels are moving okay. He does have a cough but nonproductive. States he has chronic panic attacks at home and takes Valium for that. Woke up this morning and could not breathe, nurse gave him a Valium which took the edge off. He does have some itching on his forearms and some scabs. No urinary issues. Denies any fevers or chills. Denies chest pain. Denies edema. Patient reports he is not needed to wear his home oxygen in about 4 months. [facility] Medical History (Updated 02/27/21 @ 09:01 by Coby Neri NP-C) Acute exacerbation of chronic obstructive pulmonary disease (COPD) Acute renal failure superimposed on stage 3 chronic kidney disease Acute renal failure superimposed on stage 4 chronic kidney disease Acute respiratory failure with hypoxemia Anemia Anemia of chronic renal failure Anxiety Atherosclerosis of coronary artery of [place] heart without angina pectoris Back pain C. difficile colitis Cancer Cancer Cardiology follow-up encounter Cholelithiasis Chronic hypoxemic respiratory failure Chronic renal failure, stage 4 (severe) Colon cancer Colon cancer COPD (chronic obstructive pulmonary disease) CPAP (continuous positive airway pressure) dependence Depression Diabetes Diabetes mellitus type 2 in obese Essential (primary) hypertension Former smoker Gastric reflux Gastroenteritis Gout Heme + stool Hemorrhoids High cholesterol History of echocardiogram History of GI bleed History of IBS History of renal disease Hyperkalemia, diminished renal excretion Hyperlipidemia Hypertension Hyponatremia Hypotension, unspecified Increased PTH level Infectious encephalopathy Influenza B Injury of head and neck Insulin dependent diabetes mellitus Iron deficiency anemia Kidney disease Low vitamin D level Lower GI bleed Metabolic acidosis Metabolic acidosis Myocardial infarct Nicotine dependence, cigarettes, in remission Nocturnal hypoxia Non-STEMI (non-ST elevated myocardial infarction) Noncompliance with CPAP treatment NSAID long-term use NSTEMI (non-ST elevated myocardial infarction) (07/2018) NSVT (nonsustained ventricular tachycardia) On home oxygen therapy LADARIUS (obstructive sleep apnea) Paroxysmal atrial fibrillation Peripheral vascular disease Pseudomembranous enterocolitis Radiculopathy affecting upper extremity Septic shock Severe sepsis Severe sepsis Shortness of breath on exertion Skin tear Sleep apnea Stage 3 severe COPD by GOLD classification Streptococcal pneumonia Uremia of renal origin Urinary retention due to benign prostatic hyperplasia Wears dentures Home Medications nitroglycerin 0.4 mg SUBLINGUAL Q5M PRN 05/14/17 [History Last Taken Unknown] oxycodone 5 mg PO BID PRN PRN 05/14/17 [History Last Taken 08/26/20] allopurinol 300 mg PO DAILY 09/15/17 [History Last Taken 08/26/20 08:00] finasteride 5 mg PO DAILY 09/15/17 [History Last Taken 02/12/21] isosorbide mononitrate 30 mg PO DAILY 09/15/17 [History Last Taken 02/12/21] metoprolol succinate 50 mg PO DAILY 09/15/17 [History Last Taken 02/12/21] albuterol sulfate 1 - 2 puff INHALATION Q4H PRN PRN 05/12/18 [History Last Taken 12/05/19] diazepam 5 mg PO BID PRN 05/12/18 [History Last Taken 08/26/20] clopidogrel 75 mg PO DAILY 08/04/18 [History Last Taken 08/26/20] cholecalciferol (vitamin D3) 50 mcg (2,000 unit) capsule 2,000 mcg PO DAILY #90 cap 02/19/19 [History Last Taken 08/26/20] cilostazol 100 mg tablet 100 mg PO QHS tab 09/30/19 [History Last Taken 08/25/20] escitalopram oxalate 20 mg tablet 20 mg PO DAILY 09/30/19 [History Last Taken 08/26/20] ferrous sulfate 325 mg (65 mg iron) tablet 325 mg PO DAILY tab 09/30/19 [History Last Taken 08/26/20] ipratropium 0.5 mg-albuterol 3 mg (2.5 mg base)/3 mL nebulization soln 3 ml INHALATION Q4H PRN ml 09/30/19 [History Last Taken 12/07/19] loperamide 2 mg capsule 2 mg PO Q4H PRN PRN cap 09/30/19 [History Last Taken 12/07/19] rosuvastatin 10 mg tablet 10 mg PO DAILY #90 tab 09/30/19 [History Last Taken 08/25/20] levothyroxine 88 mcg PO DAILY 12/07/19 [History Last Taken 02/12/21] Tresiba U-100 Insulin 30 unit SUBCUT BID 08/26/20 [History Last Taken 08/26/20] pantoprazole 40 mg PO DAILY 08/26/20 [History Last Taken 08/26/20] Anoro Ellipta 1 inh INHALATION Q24H 08/31/20 [History Last Taken 02/12/21] amiodarone 200 mg tablet 200 mg PO DAILY #90 tab 12/04/20 [Rx Last Taken 02/12/21] aspirin 81 mg tablet,delayed release 81 mg PO DAILY 12/11/20 [History Last Taken Unknown] insulin aspart U-100 [Novolog Flexpen U-100 Insulin] 5 units SUBCUT TIDCM 12/25/20 [History Last Taken Unknown] sodium bicarbonate 650 mg PO 4X/DAY 12/25/20 [History Last Taken Unknown] sodium polystyrene sulfonate 15 g PO DIRECTED #45 g 02/07/21 [Rx Last Taken Unknown] Allergy/AdvReac Type Severity Reaction Status Date / Time No Known Allergies Allergy Verified 02/20/21 13:58 Family History Father Leukemia Mother COPD (chronic obstructive pulmonary disease) Surgical History H/O colectomy H/O pneumonectomy History of coronary artery stent placement (05/18/03) History of esophagogastroduodenoscopy (EGD) History of left heart catheterization (11/27/09) Hx of craniotomy S/P arteriovenous (AV) fistula creation Status post colon resection Status post insertion of dialysis catheter (07/2018) Social History household members: spouse housing: other details: mobile home current occupational status: disabled pets and animals: Yes pets and animals: dog(s) Smoking Status: Former smoker quit date: 02/14/17 pack-years: 40 Tobacco: How many years used: 40 second hand exposure: No alcohol intake: never substance use type: does not use ROS ROS Narrative Review of systems otherwise negative from a constitutional, HEENT, respiratory, cardiovascular, GI, genitourinary, musculoskeletal, skin, neurologic, psychiatric and hematologic system unless stated above. Physical Exam Const alert, oriented x3 and no apparent distress General Appearance: cooperative HEENT normocephalic and head/scalp atraumatic Neck supple General: trachea midline Resp Effort and Inspection: able to speak in complete sentences, symmetric chest movement, tachypneic and uses accessory muscles Auscultation: rhonchi, wheezes and diminished lung sounds Cardio regular rate, regular rhythm, S1 normal heart sound and S2 normal heart sound GI normal to inspection, nondistended, normoactive bowel sounds Extremity no clubbing, cyanosis or edema Skin Skin Narrative: Bilateral forearms healing scabs, no signs of infection Neuro CN's II-XII intact bilaterally, moves all extremities and no focal motor deficits Psych Attitude: engaged Activity / Motor Behavior: appropriate eye contact Mood & Affect: anxious Thought Process: normal thought process Thought Content: normal thought content Attention / Concentration: attention grossly intact Memory / Cognition: memory grossly intact Insight: insight good Judgement: judgement good
[2021-02-27] MEDS: Insulin Lispro 100 UNIT/ML INSULN.PEN SC ×5 (08:24→21:51)
[2021-02-27] MEDS: Sodium Polystyrene Sulfonate 15 GM/60 ML UDC 30 GM PO (08:25)
[2021-02-27 08:37] LABS: Bedside Glucose 284 mg/dL (70-110)
[2021-02-27] MEDS: oxyCODONE 5 MG Tablet PO (09:20)
[2021-02-27] MEDS: Ceftriaxone 1 GM/50 ML BAG IV (09:24)
[2021-02-27] MEDS: Metoprolol(XL)Succ 50 MG Tablet PO (09:25)
[2021-02-27] MEDS: Aspirin E.C. 81 MG Tablet PO (09:25)
[2021-02-27] MEDS: Amiodarone 200 MG Tablet PO (09:26)
[2021-02-27] MEDS: Cholecalciferol (VIT D3) 25 MCG TABLET (1,000 UNITS) 50 MCG PO (09:26)
[2021-02-27] MEDS: Isosorbide Mononitrate 30 MG Tablet PO (09:26)
[2021-02-27] MEDS: Sodium Bicarbonate 650 MG Tablet PO ×4 (09:26→21:48)
[2021-02-27] MEDS: Escitalopram Oxalate 20 MG Tablet PO (09:26)
[2021-02-27] MEDS: Ferrous Sulfate 325 MG Tablet PO (09:27)
[2021-02-27] MEDS: Allopurinol 300 MG Tablet PO (09:27)
[2021-02-27] MEDS: Finasteride 5 MG Tablet PO (09:27)
[2021-02-27] MEDS: Pantoprazole Sodium 40 MG Tablet PO (09:27)
--- NOTE | 2021-02-27 09:52 | CON.PCM.RE_ITS ---
Documented by User: Dr. Daysi Magana DO 02/27/21 11:31 Assessment & Plan Assessment/Plan (1) Chronic renal failure, stage 4 (severe): PLAN: renal fxn at baseline, AVF left arm stage 2 procedure on 02/12. Not on dialysis. Discussed risk of contrast nephropathy with heart cath. Will start gentle hydration and minimize dye load. DW cardiology and hospitalist (2) NSTEMI (non-ST elevated myocardial infarction): (3) Acute and chronic respiratory failure with hypoxia: (4) Elevated troponin: (5) Acute hyperkalemia: PLAN: kayexalate (6) Diarrhea: (7) Metabolic acidosis: (8) Peripheral vascular disease: (9) DM type 2 (diabetes mellitus, type 2): HPI Consult Data Date of Consult: 02/27/21 HPI Narrative HPI Narrative: BARI KELLY, is a 65 M who presents with anxiety, shortness of breath. Denies cough, chest pain, fever or chills. He had his usual wheezing and used his inhaler, aerosols. Underwent stage 2 AVF on 02/12/21. Diarrhea subsided. Creatinine at baseline with CKD stage 4 due to diabetes. Potassium elevated at 5.9 given kayexalate. Troponin elevated, scheduled for heart cath today. Stopped smoking 6 weeks ago. [facility] Medical History (Updated 02/27/21 @ 11:[address] Daysi Magana DO) Acute exacerbation of chronic obstructive pulmonary disease (COPD) Acute renal failure superimposed on stage 3 chronic kidney disease Acute renal failure superimposed on stage 4 chronic kidney disease Acute respiratory failure with hypoxemia Anemia Anemia of chronic renal failure Anxiety Atherosclerosis of coronary artery of [place] heart without angina pectoris Back pain C. difficile colitis Cancer Cancer Cardiology follow-up encounter Cholelithiasis Chronic hypoxemic respiratory failure Chronic renal failure, stage 4 (severe) Colon cancer Colon cancer COPD (chronic obstructive pulmonary disease) CPAP (continuous positive airway pressure) dependence Depression Diabetes Diabetes mellitus type 2 in obese Essential (primary) hypertension Former smoker Gastric reflux Gastroenteritis Gout Heme + stool Hemorrhoids High cholesterol History of echocardiogram History of GI bleed History of IBS History of renal disease Hyperkalemia, diminished renal excretion Hyperlipidemia Hypertension Hyponatremia Hypotension, unspecified Increased PTH level Infectious encephalopathy Influenza B Injury of head and neck Insulin dependent diabetes mellitus Iron deficiency anemia Kidney disease Low vitamin D level Lower GI bleed Metabolic acidosis Metabolic acidosis Myocardial infarct Nicotine dependence, cigarettes, in remission Nocturnal hypoxia Non-STEMI (non-ST elevated myocardial infarction) Noncompliance with CPAP treatment NSAID long-term use NSTEMI (non-ST elevated myocardial infarction) (07/2018) NSVT (nonsustained ventricular tachycardia) On home oxygen therapy LADARIUS (obstructive sleep apnea) Paroxysmal atrial fibrillation Peripheral vascular disease Pseudomembranous enterocolitis Radiculopathy affecting upper extremity Septic shock Severe sepsis Severe sepsis Shortness of breath on exertion Skin tear Sleep apnea Stage 3 severe COPD by GOLD classification Streptococcal pneumonia Uremia of renal origin Urinary retention due to benign prostatic hyperplasia Wears dentures Home Medications nitroglycerin 0.4 mg SUBLINGUAL Q5M PRN 05/14/17 [History Last Taken Unknown] oxycodone 5 mg PO BID PRN PRN 05/14/17 [History Last Taken 08/26/20] allopurinol 300 mg PO DAILY 09/15/17 [History Last Taken 08/26/20 08:00] finasteride 5 mg PO DAILY 09/15/17 [History Last Taken 02/12/21] isosorbide mononitrate 30 mg PO DAILY 09/15/17 [History Last Taken 02/12/21] metoprolol succinate 50 mg PO DAILY 09/15/17 [History Last Taken 02/12/21] albuterol sulfate 1 - 2 puff INHALATION Q4H PRN PRN 05/12/18 [History Last Taken 12/05/19] diazepam 5 mg PO BID PRN 05/12/18 [History Last Taken 08/26/20] clopidogrel 75 mg PO DAILY 08/04/18 [History Last Taken 08/26/20] cholecalciferol (vitamin D3) 50 mcg (2,000 unit) capsule 2,000 mcg PO DAILY #90 cap 02/19/19 [History Last Taken 08/26/20] cilostazol 100 mg tablet 100 mg PO QHS tab 09/30/19 [History Last Taken 08/25/20] escitalopram oxalate 20 mg tablet 20 mg PO DAILY 09/30/19 [History Last Taken 08/26/20] ferrous sulfate 325 mg (65 mg iron) tablet 325 mg PO DAILY tab 09/30/19 [History Last Taken 08/26/20] ipratropium 0.5 mg-albuterol 3 mg (2.5 mg base)/3 mL nebulization soln 3 ml INHALATION Q4H PRN ml 09/30/19 [History Last Taken 12/07/19] loperamide 2 mg capsule 2 mg PO Q4H PRN PRN cap 09/30/19 [History Last Taken 12/07/19] rosuvastatin 10 mg tablet 10 mg PO DAILY #90 tab 09/30/19 [History Last Taken 08/25/20] levothyroxine 88 mcg PO DAILY 12/07/19 [History Last Taken 02/12/21] Tresiba U-100 Insulin 30 unit SUBCUT BID 08/26/20 [History Last Taken 08/26/20] pantoprazole 40 mg PO DAILY 08/26/20 [History Last Taken 08/26/20] Anoro Ellipta 1 inh INHALATION Q24H 08/31/20 [History Last Taken 02/12/21] amiodarone 200 mg tablet 200 mg PO DAILY #90 tab 12/04/20 [Rx Last Taken 02/12/21] aspirin 81 mg tablet,delayed release 81 mg PO DAILY 12/11/20 [History Last Taken Unknown] insulin aspart U-100 [Novolog Flexpen U-100 Insulin] 5 units SUBCUT TIDCM 12/25/20 [History Last Taken Unknown] sodium bicarbonate 650 mg PO 4X/DAY 12/25/20 [History Last Taken Unknown] sodium polystyrene sulfonate 15 g PO DIRECTED #45 g 02/07/21 [Rx Last Taken Unknown] Allergy/AdvReac Type Severity Reaction Status Date / Time No Known Allergies Allergy Verified 02/20/21 13:58 Family History Father Leukemia Mother COPD (chronic obstructive pulmonary disease) Surgical History H/O colectomy H/O pneumonectomy History of coronary artery stent placement (05/18/03) History of esophagogastroduodenoscopy (EGD) History of left heart catheterization (11/27/09) Hx of craniotomy S/P arteriovenous (AV) fistula creation Status post colon resection Status post insertion of dialysis catheter (07/2018) Social History household members: spouse housing: other details: mobile home current occupational status: disabled pets and animals: Yes pets and animals: dog(s) Smoking Status: Former smoker quit date: 02/14/17 pack-years: 40 Tobacco: How many years used: 40 second hand exposure: No alcohol intake: never substance use type: does not use ROS Constitutional Constitutional: Denies chills, fever(s), malaise or weakness Eyes Eyes: Denies blurry vision ENT HEENT: Denies loss taste/smell Cardiovascular Cardiovascular: Reports diaphoresis, dyspnea on exertion and palpitations; Denies chest pain or syncope Respiratory/Chest Respiratory/Chest: Reports dyspnea on exertion, shortness of breath at rest and wheezing; Denies dry cough or hemoptysis Gastrointestinal Gastrointestinal: Denies abdominal pain, diarrhea, nausea or vomiting Genitourinary Genitourinary: Denies flank pain or hematuria Musculoskeletal Musculoskeletal: Reports other Details: left arm swelling after stage 2 procedure on 02/12/21 ; Denies joint swelling Integumentary Integumentary: Denies rash Hematologic/Lymphatic Hematologic/Lymphatic: Reports anemia Physical Exam Const alert, oriented x3 and no apparent distress Resp Resp Narrative: crackles RML Cardio regular rate GI non-tender and non-distended Palpation: soft Extremity no clubbing, cyanosis or edema Extremity Narrative: left arm swelling, General Extremity: AV fistula Neuro Neuro Narrative: mild anxiety Sensorium / Orientation: awake and alert Psych cooperative Mood & Affect: anxious Lab / Micro Data Result Diagrams: 02/27/21 05:10 02/27/21 05:01 Labs: Laboratory Results - last 24 hr 02/26/21 12:28: POC Glucose 340 H 02/26/21 15:35: Troponin I High Sens 2923 H* 02/26/21 16:55: POC Glucose 458 H* 02/26/21 18:35: Troponin I High Sens 3123 H* 02/26/21 20:41: POC Glucose 222 H 02/26/21 21:51: Troponin I High Sens 3294 H* 02/27/21 05:01: Sodium 139, Potassium 5.9 H, Chloride 112 H, Carbon Dioxide 20.0 L, Anion Gap 7, BUN 76 H, Creatinine 3.73 H, Estim Creat Clear Calc 21.38, Est GFR (MDRD) Af Amer 21 L, Est GFR (MDRD) Non-Af 17 L, BUN/Creatinine Ratio 20.4 H , Glucose 263 H, Calcium 9.0 02/27/21 05:10: WBC 16.2 H, RBC 3.37 L, Hgb 10.0 L, Hct 31.8 L, MCV 94.4 H, MCH 29.7, MCHC 31.4 L, RDW Std Deviation 47.8 H, RDW Coeff of Joana 13.9, Plt Count 295, MPV 12.3 H, Immature Gran % (Auto) 0.700, Neut % (Auto) 93.9 H, Lymph % (Auto) 3.9 L, [place] % (Auto) 1.5, Eos % (Auto) 0.0, Baso % (Auto) 0.0, Absolute Neuts (auto) 15.2 H, Absolute Lymphs (auto) 0.64 L, Nucleated RBC % 0 02/27/21 08:21: POC Glucose 284 H Micro: Microbiology 02/26/21 04:42 Nasal Secretion SARS-CoV-2 Antigen (Rapid) - Final Rhythm Strip Rhythm Strip: Sinus Tach Rate: 112 Ectopy: None Documented by User: Dr. Danis Loza MD 02/27/21 12:25 HPI Consult Data Date of Consult: 02/27/21 [facility] Medical History (Updated 02/27/21 @ 11:[address] Daysi Magana DO) Acute exacerbation of chronic obstructive pulmonary disease (COPD) Acute renal failure superimposed on stage 3 chronic kidney disease Acute renal failure superimposed on stage 4 chronic kidney disease Acute respiratory failure with hypoxemia Anemia Anemia of chronic renal failure Anxiety Atherosclerosis of coronary artery of [place] heart without angina pectoris Back pain C. difficile colitis Cancer Cancer Cardiology follow-up encounter Cholelithiasis Chronic hypoxemic respiratory failure Chronic renal failure, stage 4 (severe) Colon cancer Colon cancer COPD (chronic obstructive pulmonary disease) CPAP (continuous positive airway pressure) dependence Depression Diabetes Diabetes mellitus type 2 in obese Essential (primary) hypertension Former smoker Gastric reflux Gastroenteritis Gout Heme + stool Hemorrhoids High cholesterol History of echocardiogram History of GI bleed History of IBS History of renal disease Hyperkalemia, diminished renal excretion Hyperlipidemia Hypertension Hyponatremia Hypotension, unspecified Increased PTH level Infectious encephalopathy Influenza B Injury of head and neck Insulin dependent diabetes mellitus Iron deficiency anemia Kidney disease Low vitamin D level Lower GI bleed Metabolic acidosis Metabolic acidosis Myocardial infarct Nicotine dependence, cigarettes, in remission Nocturnal hypoxia Non-STEMI (non-ST elevated myocardial infarction) Noncompliance with CPAP treatment NSAID long-term use NSTEMI (non-ST elevated myocardial infarction) (07/2018) NSVT (nonsustained ventricular tachycardia) On home oxygen therapy LADARIUS (obstructive sleep apnea) Paroxysmal atrial fibrillation Peripheral vascular disease Pseudomembranous enterocolitis Radiculopathy affecting upper extremity Septic shock Severe sepsis Severe sepsis Shortness of breath on exertion Skin tear Sleep apnea Stage 3 severe COPD by GOLD classification Streptococcal pneumonia Uremia of renal origin Urinary retention due to benign prostatic hyperplasia Wears dentures Home Medications nitroglycerin 0.4 mg SUBLINGUAL Q5M PRN 05/14/17 [History Last Taken Unknown] oxycodone 5 mg PO BID PRN PRN 05/14/17 [History Last Taken 08/26/20] allopurinol 300 mg PO DAILY 09/15/17 [History Last Taken 08/26/20 08:00] finasteride 5 mg PO DAILY 09/15/17 [History Last Taken 02/12/21] isosorbide mononitrate 30 mg PO DAILY 09/15/17 [History Last Taken 02/12/21] metoprolol succinate 50 mg PO DAILY 09/15/17 [History Last Taken 02/12/21] albuterol sulfate 1 - 2 puff INHALATION Q4H PRN PRN 05/12/18 [History Last Taken 12/05/19] diazepam 5 mg PO BID PRN 05/12/18 [History Last Taken 08/26/20] clopidogrel 75 mg PO DAILY 08/04/18 [History Last Taken 08/26/20] cholecalciferol (vitamin D3) 50 mcg (2,000 unit) capsule 2,000 mcg PO DAILY #90 cap 02/19/19 [History Last Taken 08/26/20] cilostazol 100 mg tablet 100 mg PO QHS tab 09/30/19 [History Last Taken 08/25/20] escitalopram oxalate 20 mg tablet 20 mg PO DAILY 09/30/19 [History Last Taken 08/26/20] ferrous sulfate 325 mg (65 mg iron) tablet 325 mg PO DAILY tab 09/30/19 [History Last Taken 08/26/20] ipratropium 0.5 mg-albuterol 3 mg (2.5 mg base)/3 mL nebulization soln 3 ml INHALATION Q4H PRN ml 09/30/19 [History Last Taken 12/07/19] loperamide 2 mg capsule 2 mg PO Q4H PRN PRN cap 09/30/19 [History Last Taken 12/07/19] rosuvastatin 10 mg tablet 10 mg PO DAILY #90 tab 09/30/19 [History Last Taken 08/25/20] levothyroxine 88 mcg PO DAILY 12/07/19 [History Last Taken 02/12/21] Tresiba U-100 Insulin 30 unit SUBCUT BID 08/26/20 [History Last Taken 08/26/20] pantoprazole 40 mg PO DAILY 08/26/20 [History Last Taken 08/26/20] Anoro Ellipta 1 inh INHALATION Q24H 08/31/20 [History Last Taken 02/12/21] amiodarone 200 mg tablet 200 mg PO DAILY #90 tab 12/04/20 [Rx Last Taken 02/12/21] aspirin 81 mg tablet,delayed release 81 mg PO DAILY 12/11/20 [History Last Taken Unknown] insulin aspart U-100 [Novolog Flexpen U-100 Insulin] 5 units SUBCUT TIDCM 12/25/20 [History Last Taken Unknown] sodium bicarbonate 650 mg PO 4X/DAY 12/25/20 [History Last Taken Unknown] sodium polystyrene sulfonate 15 g PO DIRECTED #45 g 02/07/21 [Rx Last Taken Unknown] Allergy/AdvReac Type Severity Reaction Status Date / Time No Known Allergies Allergy Verified 02/20/21 13:58 Family History Father Leukemia Mother COPD (chronic obstructive pulmonary disease) Surgical History H/O colectomy H/O pneumonectomy History of coronary artery stent placement (05/18/03) History of esophagogastroduodenoscopy (EGD) History of left heart catheterization (11/27/09) Hx of craniotomy S/P arteriovenous (AV) fistula creation Status post colon resection Status post insertion of dialysis catheter (07/2018) Social History household members: spouse housing: other details: mobile home current occupational status: disabled pets and animals: Yes pets and animals: dog(s) Smoking Status: Former smoker quit date: 02/14/17 pack-years: 40 Tobacco: How many years used: 40 second hand exposure: No alcohol intake: never substance use type: does not use Lab / Micro Data Result Diagrams: 02/27/21 05:10 02/27/21 05:01
[2021-02-27] MEDS: 0.9% Normal Saline 1,000 ML 60 ML IV ×3 (10:07→15:15)
[2021-02-27] MEDS: Bisacodyl 10 MG Suppository RC (10:08)
--- NOTE | 2021-02-27 12:25 | PCM.PN.CARD ---
Subjective Subjective Patient seen and evaluated. Appears to be stable. Underwent cardiac catheterization today. Objective Data Vital Signs: Vital Signs Temp Pulse Resp BP Pulse Ox 98.2 F 100 16 133/76 H 98 02/27/21 08:50 02/27/21 09:25 02/27/21 08:50 02/27/21 08:50 02/27/21 08:50 Oxygen Flow Rate (L/min) 3 Oxygen Delivery Method Nasal Cannula Weight: 207 lb 3.752 oz Body Mass Index (BMI) 28.0 Intake & Output: Intake and Output for Last 24 Hours 02/25/21 02/26/21 02/27/21 23:59 23:59 23:59 Intake Total 1105 / 1105 50 / 50 Output Total 300 / 300 Balance 1105 / 1105 -250 / -250 Lab / Micro Data Result Diagrams: 02/27/21 05:10 02/27/21 05:01 Labs: Laboratory Results - last 24 hr 02/26/21 12:28: POC Glucose 340 H 02/26/21 15:35: Troponin I High Sens 2923 H* 02/26/21 16:55: POC Glucose 458 H* 02/26/21 18:35: Troponin I High Sens 3123 H* 02/26/21 20:41: POC Glucose 222 H 02/26/21 21:51: Troponin I High Sens 3294 H* 02/27/21 05:01: Sodium 139, Potassium 5.9 H, Chloride 112 H, Carbon Dioxide 20.0 L, Anion Gap 7, BUN 76 H, Creatinine 3.73 H, Estim Creat Clear Calc 21.38, Est GFR (MDRD) Af Amer 21 L, Est GFR (MDRD) Non-Af 17 L, BUN/Creatinine Ratio 20.4 H, Glucose 263 H, Calcium 9.0 02/27/21 05:10: WBC 16.2 H, RBC 3.37 L, Hgb 10.0 L, Hct 31.8 L, MCV 94.4 H, MCH 29.7, MCHC 31.4 L, RDW Std Deviation 47.8 H, RDW Coeff of Joana 13.9, Plt Count 295, MPV 12.3 H, Immature Gran % (Auto) 0.700, Neut % (Auto) 93.9 H, Lymph % (Auto) 3.9 L, [place] % (Auto) 1.5, Eos % (Auto) 0.0, Baso % (Auto) 0.0, Absolute Neuts (auto) 15.2 H, Absolute Lymphs (auto) 0.64 L, Nucleated RBC % 0 02/27/21 08:21: POC Glucose 284 H Rhythm Strip Rhythm Strip: Sinus Tach Rate: 112 Ectopy: None Cardiology Labs/Tests 02/27/21 05:01: Sodium 139, Potassium 5.9 H, Chloride 112 H, Carbon Dioxide 20.0 L, Anion Gap 7, BUN 76 H, Creatinine 3.73 H, Est GFR (MDRD) Af Amer 21 L, Est GFR (MDRD) Non-Af 17 L, BUN/Creatinine Ratio 20.4 H, Glucose 263 H, Calcium 9.0 02/27/21 05:10: WBC 16.2 H, RBC 3.37 L, Hgb 10.0 L, Hct 31.8 L, MCV 94.4 H, MCH 29.7, MCHC 31.4 L, Plt Count 295, MPV 12.3 H, Immature Gran % (Auto) 0.700, Neut % (Auto) 93.9 H, Lymph % (Auto) 3.9 L, [place] % (Auto) 1.5, Eos % (Auto) 0.0, Baso % (Auto) 0.0, Absolute Neuts (auto) 15.2 H, Nucleated RBC % 0 Rhythm: EKG: ECHO: Stress Test: Cardiac Cath: PCI: CT Surgery: Holter monitor: EPS: PPM: CXR: Chest CT Scan: Physical Exam Const alert, oriented x3 and no apparent distress General Appearance: cooperative HEENT hearing grossly normal bilaterally Head and Scalp: atraumatic Eyes EOMs intact bilaterally Neck General: normal visual inspection Chest inspection of chest normal and palpation of chest normal Resp normal respiratory effort Auscultation: clear to auscultation bilaterally Cardio regular rate, regular rhythm, S1 normal heart sound and S2 normal heart sound Jugular Venous Distention: JVD GI normal to inspection, nondistended, normoactive bowel sounds Extremity normal capillary refill and no pedal edema Extremity Narrative: Left upper extremity fistula Peripheral Pulses: Yes pulses 2+ throughout and femoral pulses present Skin no rashes or lesions noted Neuro oriented x3 and CN's II-XII intact bilaterally Psych Appearance: grossly normal and appropriate Assessment & Plan Assessment/Plan (1) Elevated troponin: PLAN: He does have evidence of a non-ST elevation myocardial infarction. Patient underwent cardiac catheterization today which demonstrated the following: Normal left main coronary artery. Left anterior descending artery previously stented with 95% proximal stenosis noted and diffuse 70% stenosis noted in the stent First diagonal vessel which appears to be stented with subtotal occlusion Dominant left circumflex artery with proximal 50%, first obtuse marginal branch with proximal 50% and mid to distal 85% Mid circumflex artery in the AV groove segment with 95% stenosis feeding distal posterior lateral and posterior descending arteries Nondominant right coronary artery with 99% proximal stenosis Based on the above angiographic findings we need to consider multivessel angioplasty with a high risk of subsequent dialysis, or high risk coronary bypass surgery. At this particular time especially with bed nonavailability we will need to discuss appropriate therapeutic measures. Above discussed with front end engineer Above discussed with interventionalist Above discussed with hospitalist. (2) History of coronary artery stent placement: PLAN: He is status post previous angioplasty and stenting as noted above in 2003. He clearly has progression of disease due to a variety of factors. (3) Paroxysmal atrial fibrillation: PLAN: Does have a history of paroxysmal atrial fibrillation. He is maintaining sinus rhythm at this time. He will remain on the amiodarone. (4) Chronic kidney disease: PLAN: He does have renal dysfunction with impending dialysis. He already has a fistula placed. Thank you for allowing me to participate in the care of your patient. Please don't hesitate to call if any issues arise.
--- NOTE | 2021-02-27 12:53 | CL.D_ITS ---
Patient Name: BARI KELLY Study Date: 02/27/2021 Performing: Danis Loza MD Ht: 72.05 inches 183 cm : 1955 Wt: 207.23 lbs 94 kg Age: 65 Gender: male BSA: 2.16 PROCEDURE(S) PERFORMED [id number])[facility] CLINICAL PROFILE AND INDICATIONS Indications: Suspected CAD Heart Failure: NYHA Class: 3, Newly Diagnosed: Yes, Heart Failure Type: Systolic Stress/Imaging Stress/Image Study Performed: No CONCLUSIONS Severe triple-vessel disease involving a previously stented proximal left anterior descending artery, first obtuse marginal branch, mid circumflex artery and nondominant right coronary artery. RECOMMENDATIONS Based on the above multivessel coronary artery disease, this severe renal dysfunction and impending d ialysis and high risk for surgery we will consider multivessel PCI. DESCRIPTION OF PROCEDURE The patient arrived to the procedure lab. The risks and benefits of the procedure as well as a full d escription of our services here and current unavailability of surgical backup were fully explained to the patient and/or their significant other prior to the catheterization. The Timeout was completed, verifying the correct patient and procedure. The patient's procedural site was prepped and draped in the usual fashion. Local anesthetic was given subcutaneously to right radial region with Lidocaine 2% . Using a modified Seldinger technique, arterial access was obtained via the right radial artery, a 6 Fr sheath was inserted. Left Coronary Artery selective angiography was performed in multiple views u sing a 5 Fr. 4.0 [place] catheter. Right Coronary Artery selective angiography was then performed in mu ltiple views using a 5 Fr. 4.0 [place] catheter.The arterial sheath was pulled and a TR Band was applie d for hemostasis CORONARY ANGIOGRAPHY DOMINANCE: Left Dominant LEFT HEART ASSESSMENT Left Ventricular Ejection Fraction: by Echo 55 % Depressed Left Ventricular systolic function LEFT MAIN: Mild calcification, No significant disease noted LEFT ANTERIOR DESCENDING ARTERY: PROX LAD: 95% proximal stenosis within the stent and diffuse 70% stenosis after that and the mid segm ent with 70% long stenosis noted. DIAGONAL 1: Proximal - Mild luminal irregularities CIRCUMFLEX ARTERY: First obtuse marginal branch previously stented with subtotal occlusion within the stent, [place] circumflex artery with 50% proximal stenosis, second obtuse marginal branch with mild disease, and mid circumflex artery in the AV groove region with 95% stenosis feeding a distal postero lateral and posterior descending artery vessel. RIGHT CORONARY ARTERY: Nondominant right coronary artery with 95% proximal stenosis COMPLICATIONS No Complications PROCEDURE MEDICATIONS Versed 1 mg IV Fentanyl 50 mcg IV Oxygen: 2 L/min via nasal cannula Heparin given IA 02/27/2021 12:06:52 SUMMARY OF HEMODYNAMIC DATA Time AIR REST ECG 11:38:43 Art 124/59 (81) 11:58:50 AO 116/68 (88) SA 12:08:12 Signed By Danis Loza MD On 02/28/2021 13:04:55 Signed By Danis Loza MD On 02/27/2021 12:52:24 PM Danis Loza MD
--- NOTE | 2021-02-27 13:14 | PN.HOSP_ITS ---
Subjective Subjective Patient seen and examined. He feels much better today. He says he feels much better and his breathing is better. He is on 4L of oxygen. REview of systems is otherwise negative. He is for cardiac cath today. He is on 3L of oxygen. Objective Data Objective Data Vital Signs: Vital Signs Temp Pulse Resp BP Pulse Ox 98.2 F 100 16 133/76 H 98 02/27/21 08:50 02/27/21 09:25 02/27/21 08:50 02/27/21 08:50 02/27/21 08:50 Oxygen Flow Rate (L/min) 3 Oxygen Delivery Method Nasal Cannula Weight: 207 lb 3.752 oz Body Mass Index (BMI) 28.0 Intake & Output: Intake and Output for Last 24 Hours 02/25/21 02/26/21 02/27/21 23:59 23:59 23:59 Intake Total 1105 / 1105 50 / 50 Output Total 300 / 300 Balance 1105 / 1105 -250 / -250 Lab / Micro Data Result Diagrams: 02/27/21 05:10 02/27/21 05:01 Labs: Laboratory Results - last 24 hr 02/26/21 15:35: Troponin I High Sens 2923 H* 02/26/21 16:55: POC Glucose 458 H* 02/26/21 18:35: Troponin I High Sens 3123 H* 02/26/21 20:41: POC Glucose 222 H 02/26/21 21:51: Troponin I High Sens 3294 H* 02/27/21 05:01: Sodium 139, Potassium 5.9 H, Chloride 112 H, Carbon Dioxide 20.0 L, Anion Gap 7, BUN 76 H, Creatinine 3.73 H, Estim Creat Clear Calc 21.38, Est GFR (MDRD) Af Amer 21 L, Est GFR (MDRD) Non-Af 17 L, BUN/Creatinine Ratio 20.4 H , Glucose 263 H, Calcium 9.0 02/27/21 05:10: WBC 16.2 H, RBC 3.37 L, Hgb 10.0 L, Hct 31.8 L, MCV 94.4 H, MCH 29.7, MCHC 31.4 L, RDW Std Deviation 47.8 H, RDW Coeff of Joana 13.9, Plt Count 295, MPV 12.3 H, Immature Gran % (Auto) 0.700, Neut % (Auto) 93.9 H, Lymph % (Auto) 3.9 L, [place] % (Auto) 1.5, Eos % (Auto) 0.0, Baso % (Auto) 0.0, Absolute Neuts (auto) 15.2 H, Absolute Lymphs (auto) 0.64 L, Nucleated RBC % 0 02/27/21 08:21: POC Glucose 284 H Micro: Microbiology 02/26/21 04:42 Nasal Secretion SARS-CoV-2 Antigen (Rapid) - Final Rhythm Strip Rhythm Strip: Sinus Tach Rate: 112 Ectopy: None Physical Exam Const alert, oriented x3 and healthy appearing General Appearance: cooperative Exam Limitations: no limitations HEENT normocephalic, head/scalp atraumatic and hearing grossly normal bilaterally Head and Scalp: normocephalic Eyes PERRL, EOMs intact bilaterally and conjunctivae normal Neck no lymphadenopathy and supple Resp Resp Narrative: Diminished breath sounds bibasally. On 3 L of oxygen. Cardio regular rate, regular rhythm, S1 normal heart sound, S2 normal heart sound and no murmurs GI normal to inspection, nondistended, normoactive bowel sounds, soft to palpation, non-tender and non-distended Extremity normal to inspection, full ROM and no clubbing, cyanosis or edema Peripheral Pulses: Yes pulses 2+ throughout Skin no rashes or lesions noted Neuro oriented x3, CN's II-XII intact bilaterally, moves all extremities and no focal motor deficits Sensorium / Orientation: awake and alert Psych affect normal Assessment & Plan Assessment/Plan (1) COPD (chronic obstructive pulmonary disease): (2) Elevated troponin: (3) Hyperkalemia: PLAN: #Acute on chronic COPD exacerbation * Admit to [facility] telemetry. * on IV solumedrol 40mg q8 * on IV levaquin. Breathing treatment with bronchodilators. * titrate oxygen to maintain sats >90% * #Nonstemi * troponins peaked at 3294 * 2D echo:pending * on aspirin, plavix as well as statin. * Already on aspirin and Plavix as well as statin * cardiac cath: showed triple vessel disease involving previously stented proximal left anterior descending artery, first obtuse marginal branch, mid circumflex artery and nondominant right coronary artery. * for multivessel PCI tomorrow * #Hyperkalemia: Potassium is 5.9 today. Will give another dose of Kayexalate 30 g x 1 and trend. Nephrology on board #CKD stage IV: * Cr today is 3.73. * Had AV fistula placed in December 2020. nephrology on board as patient is going to have dye exposure with cath. #A. fib: Currently rate controlled. On amiodarone and metoprolol #Type 2 diabetes mellitus: Lantus 30 units twice daily. Insulin sliding scale. Accu-Cheks AC at bedtime. #Depression: on escitalopram DVT prophylaxis: lovenox, renally dosed. Code status: full code. * Charges/Coding Visit Charges Inpatient E&M: 35497 Subs Hosp L3
[2021-02-27 17:21] LABS: Bedside Glucose 319 mg/dL (70-110)
[2021-02-27] MEDS: Atorvastatin Calcium 20 MG Tablet PO (21:48)
[2021-02-27] MEDS: Cilostazol 50 MG Tablet 100 MG PO (21:49)
[2021-02-27 22:00] LABS: Bedside Glucose 311 mg/dL (70-110)
--- NOTE | 2021-02-27 23:57 | PCS.PANDOC ---
PANDEMIC DOCUMENTATION INITIATED: Date: 10/30/2020 Time: 190
[2021-02-28] VITALS (19 sets, daily range): BP systolic 114–155; BP diastolic 67–93; PULSE 70–93; RESP 12–24; TEMP 36.4–36.8; O2SAT 87–99
--- NOTE | 2021-02-28 05:55 | EKG12_ITS ---
Test Reason : AM EKG Blood Pressure : / mmHG Vent. Rate : 090 BPM Atrial Rate : 090 BPM P-R Int : 238 ms QRS Dur : 104 ms QT Int : 376 ms P-R-T Axes : 080 083 127 degrees QTc Int : 459 ms Sinus rhythm with 1st degree A-V block ST & T wave abnormality, consider anterolateral ischemia Abnormal ECG When compared with ECG of 26-FEB-2021 04:40, MANUAL COMPARISON REQUIRED, DATA IS UNCONFIRMED Confirmed by MAR ASIF, ANUEL ([id number]), online editor JARED MADRID ([id number]) on 03/02/2021 12:48:59 PM Referred By: DAMIAN Confirmed By:AARON MANUEL MD
[2021-02-28] MEDS: Isosorbide Mononitrate 30 MG Tablet PO (06:06)
[2021-02-28] MEDS: Clopidogrel Bisulfate 75 MG Tablet PO (06:06)
[2021-02-28] MEDS: Metoprolol(XL)Succ 50 MG Tablet PO (06:06)
[2021-02-28] MEDS: Aspirin E.C. 81 MG Tablet PO (06:06)
[2021-02-28] MEDS: Amiodarone 200 MG Tablet PO (06:06)
[2021-02-28] MEDS: Levothyroxine 88 MCG Tablet PO (06:06)
[2021-02-28] MEDS: 0.9% Normal Saline 1,000 ML 60 ML IV (06:07)
[2021-02-28] MEDS: 0.9% Normal Saline 1,000 ML 100 ML IV (06:07)
[2021-02-28 06:25] LABS: Bedside Glucose 277 mg/dL (70-110)
[2021-02-28 07:03] LABS: Absolute Lymphocyte Count 0.52 X10^3/uL (0.83-4.51); Absolute Neutrophil Count 10.3 X10^3/uL (2.0-7.7); Hematocrit 30.1 % (40-54); Hemoglobin 9.3 g/dL (13.0-16.5); Lymphocyte # 0.52 X10^3/ul (0.83-4.51); Lymphocyte % 4.7 % (19-41); Mean Corp Hgb Conc 30.9 g/dL (32-36); Mean Corpuscular Hgb 29.2 pg (27.0-32.0); Mean Corpuscular Volume 94.4 fL (80-94); Mean Platelet Vol. 12.1 fl (6.2-12.0); Monocyte# 0.14 X10^3/uL; Monocyte% 1.3 % (0-10); NRBC Flagged by Analyzer 0 % (0-5); Neutrophil # 10.29 X10^3/uL (2.7-7.7); Neutrophil % 93.5 % (47-70); POSITIVE DIFFERENTIAL YES; Platelet Count 301 K/mm3 (150-450); RBC Distribution Width CV 13.6 % (11.6-14.6); RBC Distribution Width SD 46.9 fl (35.1-43.9); Red Blood Count 3.19 M/mm3 (4.6-6.2)
[2021-02-28 07:04] LABS: Differential Indicated SCAN CRITERIA MET
[2021-02-28 07:32] LABS: Anion Gap 10 (5-15); BUN 88 mg/dL (7-18); BUN/Creat Ratio 21.3 RATIO (10-20); Calcium,Total 8.6 mg/dL (8.5-10.1); Chloride 109 mmol/L (98-107); Creatinine, Serum 4.13 mg/dL (0.70-1.30); EST Glomerular Filtration Rate 16 mL/min (>60); Est Glom Filt Rate - Afr Amer 19 mL/min (>60); Estimated Creatinine Clearance 19.31 ml/min; Glucose 307 mg/dL (74-106); Potassium 5.3 mmol/L (3.5-5.1); Sodium Level 137 mmol/L (136-145)
--- NOTE | 2021-02-28 09:03 | CASEMGMT ---
Social Work SW met w/pt in room, pt's sister Rhianna is at the bedside. SW assisted pt in completing healthcare POA. Pt named his sister Rhianna as medical POA, and Vita as alternate. SW gave pt the original and copies, and a copy placed on the chart. SW also spoke w/pt about counseling options, and gave pt a list of local mental health agencies. SW suggested to pt that he reach out to [facility] for bereavement counseling, as he lost his 8 months ago. Pt states he did speak w/palliative care yesterday, and states, it sounds alright. I'll try it out. SW educated pt's sister at the bedside also about palliative care. Pt states is going for a heart cath today, and is getting dialysis later. SW explained we will be available to continue to follow along for discharge planning, and to see if he is able to return home or if he may need to go somewhere for rehab. SW explained if pt is able to go home and he needs home O2, we will get it ordered for him. Pt states he would like one of the portable, [employer] devices. SW explained that from here he would get a concentrator, and once home he can look into getting a smaller device. Pt states understanding. Plan continues to be home most likely, however SW available should plan change. BRENT Hernandez
[2021-02-28] MEDS: Ipratropium/Albuterol Sulfate 3 ML AMPUL.NEB INHALATION ×3 (10:04→18:53)
--- NOTE | 2021-02-28 10:27 | NURSING ---
This RN called and gave report to DEVEN Oropeza in [employer] worker.
--- NOTE | 2021-02-28 12:35 | PN.HOSP_ITS ---
Subjective Subjective Patient seen and examined. He feels much better today. His sister was by his bedside. He had no active complaints. He is awaiting cardiac cath for stent placement for severe multivessel disease. Patient's creatinine has trended up to 4.13 today. I spoke to his lathe sander Dr. Magana stated that in light of kaushal ent's severe triple-vessel disease, he would need a cath and may have to progress to dialysis sooner than expected in light of the dye he is going to receive. I advised patient of this and he is in agreement. Objective Data Objective Data Vital Signs: Vital Signs Temp Pulse Resp BP Pulse Ox 98.0 F 91 22 H 148/77 H 95 02/28/21 09:22 02/28/21 10:39 02/28/21 10:39 02/28/21 09:22 02/28/21 09:22 Oxygen Flow Rate (L/min) 2 Oxygen Delivery Method Nasal Cannula Weight: 207 lb 3.752 oz Body Mass Index (BMI) 28.0 Intake & Output: Intake and Output for Last 24 Hours 02/26/21 02/27/21 02/28/21 23:59 23:59 23:59 Intake Total 1105 / 1105 1852 / 1852 922 / 922 Output Total 500 / 500 Balance 1105 / 1105 1352 / 1352 922 / 922 Lab / Micro Data Result Diagrams: 02/28/21 06:38 02/28/21 06:38 Labs: Laboratory Results - last 24 hr 02/27/21 16:47: POC Glucose 319 H 02/27/21 21:51: POC Glucose 311 H 02/28/21 06:05: POC Glucose 277 H 02/28/21 06:38: WBC 11.0, RBC 3.19 L, Hgb 9.3 L, Hct 30.1 L, MCV 94.4 H, MCH 29.2, MCHC 30.9 L, RDW Std Deviation 46.9 H, RDW Coeff of Joana 13.6, Plt Count 301, MPV 12.1 H, Immature Gran % (Auto) 0.500, Neut % (Auto) 93.5 H, Lymph % (Auto) 4.7 L, [place] % (Auto) 1.3, Eos % (Auto) 0.0, Baso % (Auto) 0.0, Absolute Neuts (auto) 10.3 H, Absolute Lymphs (auto) 0.52 L, Nucleated RBC % 0, Differential Comment COMMENT 02/28/21 06:38: Sodium 137, Potassium 5.3 H, Chloride 109 H, Carbon Dioxide 18.0 L, Anion Gap 10, BUN 88 H, Creatinine 4.13 H, Estim Creat Clear Calc 19.31, Est GFR (MDRD) Af Amer 19 L, Est GFR (MDRD) Non-Af 16 L, BUN/Creatinine Ratio 21.3 H , Glucose 307 H, Calcium 8.6 Micro: Microbiology 02/26/21 04:42 Nasal Secretion SARS-CoV-2 Antigen (Rapid) - Final Radiography Diagnostic Testing: Radiology Impression Echocardiogram 02/27/21 05:55 Interpretation Summary The study was technically difficult. Contrast injection was performed. Segmental dysfunction with preserved ejection fraction (see wall motion). The estimated ejection fraction is 55 %. The left atrium is mildly enlarged. Trivial mitral valve insufficiency. Trivial tricuspid valve insufficiency. Mild focal aortic valve calcification. Trivial pulmonic valve insufficiency. Right ventricular systolic pressure estimated to be 41 mmHg. There is evidence of diastolic dysfunction. Ordering Physician: Angeles Howe Referring Physician: INES STAUFFER Performed By: Mae Hardy, RAFAEL, RVT Rhythm Strip Rhythm Strip: Sinus Tach Rate: 112 Ectopy: None Physical Exam Const alert and oriented x3 General Appearance: cooperative Exam Limitations: no limitations HEENT normocephalic, head/scalp atraumatic and hearing grossly normal bilaterally Head and Scalp: normocephalic Eyes PERRL, EOMs intact bilaterally and conjunctivae normal Neck no lymphadenopathy and supple Resp Resp Narrative: Diminished breath sounds bibasally. No wheezes or crackles. On 2L of oxygen by nasal canula Cardio regular rate, regular rhythm, S1 normal heart sound, S2 normal heart sound and no murmurs GI normal to inspection, nondistended, normoactive bowel sounds, soft to palpation, non-tender and non-distended Extremity normal to inspection, full ROM and no clubbing, cyanosis or edema Peripheral Pulses: Yes pulses 2+ throughout Skin no rashes or lesions noted Neuro oriented x3, CN's II-XII intact bilaterally, moves all extremities and no focal motor deficits Sensorium / Orientation: awake and alert Psych affect normal Assessment & Plan Assessment/Plan (1) COPD (chronic obstructive pulmonary disease): (2) Elevated troponin: (3) Hyperkalemia: PLAN: #Acute on chronic COPD exacerbation * Admit to [facility] telemetry. * On Iv solumedrol. On IV levaquin q48 hourly. * Breathing treatments with bronchodilators. Titrate oxygen to maintain saturation above 90%. * Chest physiotherapy * #Nonstemi * on aspirin, plavix and statin. * troponins trended up markedly. * cardiac cath yesterday showed severe triple vessel disease * He is to have repeat cath today for stent placements. * Already on aspirin and Plavix as well as statin * #CKD stage IV * Creatinine is trended up to 4.13 today. He does have an AV fistula which was inserted a few months ago. * I discussed with his lathe sander today who stated that patient may need dialysis sooner than later and she will check with Dr. Dick to see if fistula could be used for dialysis if needed. * #Hyperkalemia: * Potassium is 5.3. Likely due to worsening Cr. Will monitor. * Kayexalate has not seemed to help. Will consider [facility]. nephrology on board #Nonanion gap metabolic acidosis * bicarb is 18. Anion gap is 10. Will monitor * #A. fib: Currently rate controlled. On amiodarone and metoprolol #Type 2 diabetes mellitus: Lantus 30 units twice daily. Insulin sliding scale. Accu-Cheks AC at bedtime. #Depression: on escitalopram DVT prophylaxis: lovenox, renally dosed. Code status: full code. * Charges/Coding Visit Charges Inpatient E&M: 12610 Subs Hosp L3
[2021-02-28] MEDS: Ceftriaxone 1 GM/50 ML BAG IV (13:22)
--- NOTE | 2021-02-28 13:22 | PN.RENAL_ITS ---
Subjective Subjective Return from heart cath s/p PCI x4. No chest pain, no anxiety attack. Wheezing with nonproductive cough. Afebrile Objective Data Objective Data Vital Signs: Vital Signs Temp Pulse Resp BP Pulse Ox 98.0 F 91 22 H 148/77 H 95 02/28/21 09:22 02/28/21 10:39 02/28/21 10:39 02/28/21 09:22 02/28/21 09:22 Oxygen Flow Rate (L/min) 2 Oxygen Delivery Method Nasal Cannula Weight: 94 kg Body Mass Index (BMI) 28.0 Intake & Output: Intake and Output for Last 24 Hours 02/26/21 02/27/21 02/28/21 23:59 23:59 23:59 Intake Total 1105 / 1105 1852 / 1852 922 / 922 Output Total 500 / 500 Balance 1105 / 1105 1352 / 1352 922 / 922 Lab / Micro Data Result Diagrams: 02/28/21 06:38 02/28/21 06:38 Labs: Laboratory Results - last 24 hr 02/27/21 16:47: POC Glucose 319 H 02/27/21 21:51: POC Glucose 311 H 02/28/21 06:05: POC Glucose 277 H 02/28/21 06:38: WBC 11.0, RBC 3.19 L, Hgb 9.3 L, Hct 30.1 L, MCV 94.4 H, MCH 29.2, MCHC 30.9 L, RDW Std Deviation 46.9 H, RDW Coeff of Joana 13.6, Plt Count 301, MPV 12.1 H, Immature Gran % (Auto) 0.500, Neut % (Auto) 93.5 H, Lymph % (Auto) 4.7 L, [place] % (Auto) 1.3, Eos % (Auto) 0.0, Baso % (Auto) 0.0, Absolute Neuts (auto) 10.3 H, Absolute Lymphs (auto) 0.52 L, Nucleated RBC % 0, Differential Comment COMMENT 02/28/21 06:38: Sodium 137, Potassium 5.3 H, Chloride 109 H, Carbon Dioxide 18.0 L, Anion Gap 10, BUN 88 H, Creatinine 4.13 H, Estim Creat Clear Calc 19.31, Est GFR (MDRD) Af Amer 19 L, Est GFR (MDRD) Non-Af 16 L, BUN/Creatinine Ratio 21.3 H , Glucose 307 H, Calcium 8.6 Micro: Microbiology 02/26/21 04:42 Nasal Secretion SARS-CoV-2 Antigen (Rapid) - Final Radiography Diagnostic Testing: Radiology Impression Echocardiogram 02/27/21 05:55 Interpretation Summary The study was technically difficult. Contrast injection was performed. Segmental dysfunction with preserved ejection fraction (see wall motion). The estimated ejection fraction is 55 %. The left atrium is mildly enlarged. Trivial mitral valve insufficiency. Trivial tricuspid valve insufficiency. Mild focal aortic valve calcification. Trivial pulmonic valve insufficiency. Right ventricular systolic pressure estimated to be 41 mmHg. There is evidence of diastolic dysfunction. Ordering Physician: Angeles Howe Referring Physician: INES STAUFFER Performed By: Mae Hardy, RDCS, RVT Rhythm Strip Rhythm Strip: Sinus Tach Rate: 112 Ectopy: None Physical Exam Const alert and oriented x3 Resp Resp Narrative: upper airway wheeze Auscultation: wheezes Cardio regular rate GI non-tender and non-distended Palpation: soft Extremity no clubbing, cyanosis or edema General Extremity: AV fistula Assessment & Plan Assessment/Plan (1) Chronic renal failure, stage 4 (severe): PLAN: elevated creatinine today s/p cath yesterday, PCI today. Continue to monitor renal fxn for contrast nephropathy. IV fluids 6hrs post cath. Ok to use AVF per Dr. Dick's assistent if dialysis is needed. (2) NSTEMI (non-ST elevated myocardial infarction): PLAN: s/p PCI x4 vessels (3) Elevated troponin: (4) Acute hyperkalemia: PLAN: kayexalate prn (5) Diarrhea: (6) Peripheral vascular disease: (7) DM type 2 (diabetes mellitus, type 2):
--- NOTE | 2021-02-28 13:30 | EKG12_ITS ---
Test Reason : MORNING EKG Blood Pressure : / mmHG Vent. Rate : 086 BPM Atrial Rate : 086 BPM P-R Int : 248 ms QRS Dur : 104 ms QT Int : 378 ms P-R-T Axes : 047 064 117 degrees QTc Int : 452 ms Sinus rhythm with 1st degree A-V block Nonspecific ST and T wave abnormality Abnormal ECG When compared with ECG of 01-MAR-2021 05:28, MANUAL COMPARISON REQUIRED, DATA IS UNCONFIRMED Confirmed by MAR ASIF, ANUEL ([id number]), book or script editor JARED MADRID ([id number]) on 03/02/2021 12:49:36 PM Referred By: DAMIAN Confirmed By:AARON MANUEL MD
[2021-02-28 13:35] LABS: Bedside Glucose 299 mg/dL (70-110)
[2021-02-28] MEDS: Insulin Lispro 100 UNIT/ML INSULN.PEN SC ×5 (13:35→22:12)
[2021-02-28] MEDS: Umeclidinium Brm/Vilanterol 62.5-25 mcg Inh 1 PUFF INHALATION (13:37)
[2021-02-28] MEDS: Finasteride 5 MG Tablet PO (13:54)
[2021-02-28] MEDS: Allopurinol 300 MG Tablet PO (13:54)
[2021-02-28] MEDS: Pantoprazole Sodium 40 MG Tablet PO (13:55)
[2021-02-28] MEDS: Sodium Bicarbonate 650 MG Tablet PO ×3 (13:55→22:13)
[2021-02-28] MEDS: Escitalopram Oxalate 20 MG Tablet PO (13:55)
[2021-02-28] MEDS: Cholecalciferol (VIT D3) 25 MCG TABLET (1,000 UNITS) 50 MCG PO (13:55)
[2021-02-28] MEDS: Ferrous Sulfate 325 MG Tablet PO (13:55)
--- NOTE | 2021-02-28 14:12 | PCM.PN.BLA ---
Progress Note Patient denies any concerns or pain with his left upper extremity fistula Physical Exam Extremity Extremity Narrative: Left upper extremity AV fistula- good pulse, bruit and thrill. Erythema has improved since last week. Incision is healing well Assessment & Plan Assessment/Plan (1) Chronic renal failure, stage 4 (severe): PLAN: May use left upper extremity fistula if needed
--- NOTE | 2021-02-28 14:34 | EKG12_ITS ---
Test Reason : AM EKG Blood Pressure : / mmHG Vent. Rate : 081 BPM Atrial Rate : 081 BPM P-R Int : 216 ms QRS Dur : 108 ms QT Int : 386 ms P-R-T Axes : 060 076 126 degrees QTc Int : 448 ms Sinus rhythm with 1st degree A-V block Incomplete left bundle branch block Nonspecific ST and T wave abnormality Abnormal ECG When compared with ECG of 28-FEB-2021 14:35, MANUAL COMPARISON REQUIRED, DATA IS UNCONFIRMED Confirmed by MAR ASIF, ANUEL ([id number]), film or videotape editor JARED MADRID ([id number]) on 03/02/2021 12:50:50 PM Referred By: DAMIAN Confirmed By:AARON MANUEL MD
--- NOTE | 2021-02-28 15:11 | CRPHASE1 ---
Patient Communication Former Patient:: Phase I PHII Cardiac Rehab Discussed with Patient:: Yes Guide to Cardiac Rehab Given to Patient:: Yes Cardiac Rehab Facility Choice List Given to Patient:: Yes Choice Program [facility] CR PHII:: Communication Given to CR Choice Program Other:: Communication Given to CR Service Rig Operator:: Christian Burk Refer Phase II Cardiac Rehab:: Yes Sessions:: 36 sessions - 3 days/wk, 12 weeks Cardiac Rehabilitation Info Cardiac Rehabilitation Program Information: Cardiac Rehabilitation is important for patients like you who are recovering from a heart problem. Cardiac rehabilitation programs are recognized as integral to the continued care of the patient with coronary heart disease. The cardiac rehabilitation program is designed to optimize a patient's physical, psychological, and social functioning. Health emergency care tech work in cardiac rehabilitation programs and assist you with getting the treatments you need to get stronger and healthier - like exercise, healthy eating habits, and medications. Cardiac rehabilitation has been show to help people with heart problems live longer and have better life enjoyment than people who do not go to cardiac rehabilitation. Please contact the Cardiac Rehabilitation Program at [facility] at in two weeks if you have not heard from them.
--- NOTE | 2021-02-28 15:11 | CRPH1.INSTRU ---
General Education CAD and cardiac anatomy and function:: Patient communicates acknowledgment Explanation of diagnoses and procedures:: Patient communicates acknowledgment Sign/Symptoms of ND:: Patient communicates acknowledgment Antiplatelet therapy: Patient communicates acknowledgment Smoking Patient Nicotine/Smoking Risk Factors Are:: Non-smoker Recommendations Include:: Previous smoker; encourage continued cessation Dyslipidemia Patient Dyslipidemia Risk Factors Are:: Total Cholesterol, Triglycerides, HDL, LDL Recommendations Include:: Lipid profile provided, Reviewed NCEP/ATP guidelines, Therapeutic Lifestyle Change dietary guidelines Dyslipidemia Response Code:: Patient communicates acknowledgment Overweight/Obesity Patient Overweight/Obesity Risk Factors Are:: Overweight = 26-29 Recommendations Include:: Weight loss of 5-10%, Reduced calorie diet, Exercise 5-7 times/week Overweight/Obesity:: Patient communicates acknowledgment Hypertension Recommendations Include:: BP <130/80 if diabetic, DASH dietary guidelines, Decrease/maintain normal body weight, Moderation of ETOH Hypertension:: Patient communicates acknowledgment Diabetes Patient Diabetes Risk Factors Are:: Elevated blood sugars, Post-op hyperglycemia Recommendations Include:: Maintain fasting blood sugars 70-110 md/dL, Maintain HgbA1c of 6% or less, Monitor blood sugar as prescribed, Diabetic dietary guidelines, Decrease/maintain body weight Diabetes:: Patient communicates acknowledgment Sedentary Patient Sedentary Risk Factors Are:: Lack of regular exercise Recommendations Include:: Aerobic exercise 5-7 times/week for 20-30 minutes continuously, Benefits of regular exercise, Discussed home walking program, Monitored Outpatient Cardiac Rehab Sedentary Response Code:: Patient communicates acknowledgment Stress Recommendations Include:: Identification of stressors, and assessment of coping skills, Stress management techniques Stress Response Code:: Patient communicates acknowledgment
--- NOTE | 2021-02-28 16:18 | NURSING ---
This RN ambulated pt in room post heart cath upon bed rest completion. No signs of complications, bleeding or hematoma to cath site.
[2021-02-28 16:26] LABS: Bedside Glucose 330 mg/dL (70-110)
[2021-02-28] MEDS: oxyCODONE 5 MG Tablet PO (20:03)
[2021-02-28] MEDS: Cilostazol 50 MG Tablet 100 MG PO (22:13)
[2021-02-28] MEDS: Atorvastatin Calcium 20 MG Tablet PO (22:13)
[2021-02-28 22:25] LABS: Bedside Glucose 331 mg/dL (70-110)
[2021-03-01] VITALS (13 sets, daily range): BP systolic 115–138; BP diastolic 71–78; PULSE 74–96; RESP 18–24; TEMP 36.4–36.6; O2SAT 91–99
[2021-03-01] MEDS: diazePAM 5 MG Tablet PO ×2 (03:51→21:26)
[2021-03-01] MEDS: Ipratropium/Albuterol Sulfate 3 ML AMPUL.NEB INHALATION ×4 (05:32→19:16)
[2021-03-01] MEDS: Insulin Lispro 100 UNIT/ML INSULN.PEN SC ×7 (06:32→21:35)
[2021-03-01] MEDS: Levothyroxine 88 MCG Tablet PO (06:32)
[2021-03-01 06:55] LABS: Absolute Neutrophil Count 8.8 X10^3/uL (2.0-7.7); Basophil# 0.01 X10^3/uL; Basophil% 0.1 % (0-1); Hematocrit 30.3 % (40-54); Lymphocyte % 5.2 % (19-41); Mean Corpuscular Hgb 29.5 pg (27.0-32.0); Mean Corpuscular Volume 89.4 fL (80-94); Monocyte# 0.23 X10^3/uL; Monocyte% 2.4 % (0-10); NRBC Flagged by Analyzer 0 % (0-5); Neutrophil # 8.84 X10^3/uL (2.7-7.7); Neutrophil % 91.6 % (47-70); POSITIVE DIFFERENTIAL YES; Platelet Count 307 K/mm3 (150-450); RBC Distribution Width CV 13.6 % (11.6-14.6); RBC Distribution Width SD 44.5 fl (35.1-43.9); Red Blood Count 3.39 M/mm3 (4.6-6.2); White Blood Count 9.7 K/mm3 (4.4-11.0)
[2021-03-01 07:00] LABS: Bedside Glucose 276 mg/dL (70-110)
[2021-03-01 07:05] LABS: Differential Indicated SCAN CRITERIA MET
[2021-03-01 07:13] LABS: ALB/GLOB Ratio 0.7 RATIO (0.9-2.4); AST(SGOT) 13 U/L (15-37); Alanine Aminotransfer ALT/SGPT 24 U/L (16-61); Albumin, Serum 2.9 g/dL (3.2-5.0); Alkaline Phosphatase 120 U/L (45-117); Anion Gap 13 (5-15); BUN 99 mg/dL (7-18); BUN/Creat Ratio 21.7 RATIO (10-20); Calcium,Total 8.4 mg/dL (8.5-10.1); Chloride 105 mmol/L (98-107); Creatinine, Serum 4.57 mg/dL (0.70-1.30); EST Glomerular Filtration Rate 14 mL/min (>60); Est Glom Filt Rate - Afr Amer 17 mL/min (>60); Estimated Creatinine Clearance 17.45 ml/min; Globulin 4.1 g/dL (2.2-4.2); Glucose 263 mg/dL (74-106); Potassium 5.9 mmol/L (3.5-5.1); Sodium Level 134 mmol/L (136-145)
[2021-03-01] MEDS: Finasteride 5 MG Tablet PO (08:25)
[2021-03-01] MEDS: Cholecalciferol (VIT D3) 25 MCG TABLET (1,000 UNITS) 50 MCG PO (08:25)
[2021-03-01] MEDS: Allopurinol 300 MG Tablet PO (08:26)
[2021-03-01] MEDS: Amiodarone 200 MG Tablet PO (08:26)
[2021-03-01] MEDS: Metoprolol(XL)Succ 50 MG Tablet PO (08:26)
[2021-03-01] MEDS: Clopidogrel Bisulfate 75 MG Tablet PO (08:26)
[2021-03-01] MEDS: Escitalopram Oxalate 20 MG Tablet PO (08:26)
[2021-03-01] MEDS: Isosorbide Mononitrate 30 MG Tablet PO (08:26)
[2021-03-01] MEDS: Pantoprazole Sodium 40 MG Tablet PO (08:26)
[2021-03-01] MEDS: Aspirin E.C. 81 MG Tablet PO (08:26)
[2021-03-01] MEDS: Sodium Bicarbonate 650 MG Tablet PO ×4 (08:26→21:26)
[2021-03-01] MEDS: Ferrous Sulfate 325 MG Tablet PO (08:26)
[2021-03-01] MEDS: Enoxaparin 30 MG/0.3 ML Syringe SC (08:27)
[2021-03-01] MEDS: Sodium Polystyrene Sulfonate 15 GM/60 ML UDC 30 GM PO (08:35)
--- NOTE | 2021-03-01 09:13 | PN.RENAL_ITS ---
Subjective Subjective denies nausea, vomiting. Still with wheezing, dry cough. Objective Data Objective Data Vital Signs: Vital Signs Temp Pulse Resp BP Pulse Ox 97.7 F L 81 18 134/77 H 98 03/01/21 08:25 03/01/21 08:26 03/01/21 08:25 03/01/21 08:25 03/01/21 08:25 Oxygen Flow Rate (L/min) 2 Oxygen Delivery Method Nasal Cannula Weight: 94 kg Body Mass Index (BMI) 28.0 Intake & Output: Intake and Output for Last 24 Hours 02/27/21 02/28/21 03/01/21 23:59 23:59 23:59 Intake Total 1852 / 1852 2831.33 / 2831.33 Output Total 500 / 500 200 / 200 Balance 1352 / 1352 2631.33 / 2631.33 Lab / Micro Data Result Diagrams: 03/01/21 06:10 03/01/21 06:10 Labs: Laboratory Results - last 24 hr 02/28/21 13:24: POC Glucose 299 H 02/28/21 16:09: POC Glucose 330 H 02/28/21 22:11: POC Glucose 331 H 03/01/21 06:10: WBC 9.7, RBC 3.39 L, Hgb 10.0 L, Hct 30.3 L, MCV 89.4 D, MCH 29.5, MCHC 33.0 D, RDW Std Deviation 44.5 H, RDW Coeff of Joana 13.6, Plt Count 307, MPV 12.0, Immature Gran % (Auto) 0.700, Neut % (Auto) 91.6 H, Lymph % (Auto) 5.2 L, [place] % (Auto) 2.4, Eos % (Auto) 0.0, Baso % (Auto) 0.1, Absolute Neuts (auto) 8.8 H, Absolute Lymphs (auto) 0.50 L, Nucleated RBC % 0 03/01/21 06:10: Sodium 134 L, Potassium 5.9 H, Chloride 105, Carbon Dioxide 16.0 L, Anion Gap 13, BUN 99 H, Creatinine 4.57 H, Estim Creat Clear Calc 17.45, Est GFR (MDRD) Af Amer 17 L, Est GFR (MDRD) Non-Af 14 L, BUN/Creatinine Ratio 21.7 H , Glucose 263 H, Calcium 8.4 L, Total Bilirubin 0.20, AST 13 L, ALT 24, Alkaline Phosphatase 120 H, Total Protein 7.0, Albumin 2.9 L, Globulin 4.1, Albumin/Globulin Ratio 0.7 L 03/01/21 06:30: POC Glucose 276 H Micro: Microbiology 02/26/21 04:42 Nasal Secretion SARS-CoV-2 Antigen (Rapid) - Final Rhythm Strip Rhythm Strip: Sinus Tach Rate: 112 Ectopy: None Physical Exam Const alert and oriented x3 Resp Auscultation: wheezes Cardio regular rate GI non-tender and non-distended Palpation: soft Assessment & Plan Assessment/Plan (1) Chronic renal failure, stage 4 (severe): PLAN: worsening creatinine s/p cath yesterday, PCI today. ATN from contrast nephropathy. No uremic symptoms. Continue to monitor renal fxn (2) NSTEMI (non-ST elevated myocardial infarction): PLAN: s/p PCI x4 vessels. Cardio following (3) Elevated troponin: (4) Acute hyperkalemia: PLAN: kayexalate prn (5) Diarrhea: (6) Peripheral vascular disease: (7) DM type 2 (diabetes mellitus, type 2):
[2021-03-01 09:31] LABS: Bedside Glucose 274 mg/dL (70-110)
--- NOTE | 2021-03-01 09:33 | PCS.PANDOC ---
PANDEMIC DOCUMENTATION INITIATED: Date: 10/30/2020 Time: 190
[2021-03-01] MEDS: Ceftriaxone 1 GM/50 ML BAG IV (09:37)
--- NOTE | 2021-03-01 10:00 | EKG12_ITS ---
Test Reason : POSTPCI Blood Pressure : / mmHG Vent. Rate : 078 BPM Atrial Rate : 078 BPM P-R Int : 236 ms QRS Dur : 100 ms QT Int : 402 ms P-R-T Axes : 048 064 110 degrees QTc Int : 458 ms Sinus rhythm with 1st degree A-V block Nonspecific ST and T wave abnormality Abnormal ECG When compared with ECG of 28-FEB-2021 05:02, MANUAL COMPARISON REQUIRED, DATA IS UNCONFIRMED Confirmed by MAR ASIF, ANUEL ([id number]), staff editor JARED MADRID ([id number]) on 03/02/2021 12:51:01 PM Referred By: DAMIAN Confirmed By:AARON MANUEL MD
--- NOTE | 2021-03-01 10:53 | PN.HOSP_ITS ---
Subjective Subjective Patient seen and examined. He said he had an anxiety attack during the night but that has resolved. He feels his breathing is getting better. He has no other complaints review of systems otherwise negative. His creatinine is trended upwards and he tells me that nephrology reviewed him and was hold off on dialysis for now and watch her day by day. Review of systems otherwise negative. He has otherwise remained hemodynamically stable and is down to 2 L of oxygen. Objective Data Objective Data Vital Signs: Vital Signs Temp Pulse Resp BP Pulse Ox 97.7 F L 81 18 134/77 H 98 03/01/21 08:25 03/01/21 08:26 03/01/21 08:25 03/01/21 08:25 03/01/21 08:25 Oxygen Flow Rate (L/min) 2 Oxygen Delivery Method Nasal Cannula Weight: 207 lb 3.752 oz Body Mass Index (BMI) 28.0 Intake & Output: Intake and Output for Last 24 Hours 02/27/21 02/28/21 03/01/21 23:59 23:59 23:59 Intake Total 1852 / 1852 2831.33 / 2831.33 50 / 50 Output Total 500 / 500 200 / 200 Balance 1352 / 1352 2631.33 / 2631.33 50 / 50 Lab / Micro Data Result Diagrams: 03/01/21 06:10 03/01/21 06:10 Labs: Laboratory Results - last 24 hr 02/28/21 13:24: POC Glucose 299 H 02/28/21 16:09: POC Glucose 330 H 02/28/21 22:11: POC Glucose 331 H 03/01/21 06:10: WBC 9.7, RBC 3.39 L, Hgb 10.0 L, Hct 30.3 L, MCV 89.4 D, MCH 29.5, MCHC 33.0 D, RDW Std Deviation 44.5 H, RDW Coeff of Joana 13.6, Plt Count 307, MPV 12.0, Immature Gran % (Auto) 0.700, Neut % (Auto) 91.6 H, Lymph % (Auto) 5.2 L, [place] % (Auto) 2.4, Eos % (Auto) 0.0, Baso % (Auto) 0.1, Absolute Neuts (auto) 8.8 H, Absolute Lymphs (auto) 0.50 L, Nucleated RBC % 0 03/01/21 06:10: Sodium 134 L, Potassium 5.9 H, Chloride 105, Carbon Dioxide 16.0 L, Anion Gap 13, BUN 99 H, Creatinine 4.57 H, Estim Creat Clear Calc 17.45, Est GFR (MDRD) Af Amer 17 L, Est GFR (MDRD) Non-Af 14 L, BUN/Creatinine Ratio 21.7 H , Glucose 263 H, Calcium 8.4 L, Total Bilirubin 0.20, AST 13 L, ALT 24, Alkaline Phosphatase 120 H, Total Protein 7.0, Albumin 2.9 L, Globulin 4.1, Albumin/Globulin Ratio 0.7 L 03/01/21 06:30: POC Glucose 276 H 03/01/21 08:18: POC Glucose 274 H Micro: Microbiology 02/26/21 04:42 Nasal Secretion SARS-CoV-2 Antigen (Rapid) - Final Rhythm Strip Rhythm Strip: Sinus Tach Rate: 112 Ectopy: None Physical Exam Const alert and oriented x3 General Appearance: cooperative Exam Limitations: no limitations HEENT normocephalic, head/scalp atraumatic and hearing grossly normal bilaterally Head and Scalp: normocephalic Eyes PERRL, EOMs intact bilaterally and conjunctivae normal Neck no lymphadenopathy and supple Resp Resp Narrative: Diminished breath sounds bibasally. No wheezes or crackles. On 2L of oxygen by nasal canula Cardio regular rate, regular rhythm, S1 normal heart sound, S2 normal heart sound and no murmurs GI normal to inspection, nondistended, normoactive bowel sounds, soft to palpation, non-tender and non-distended Extremity normal to inspection, full ROM and no clubbing, cyanosis or edema Extremity Narrative: AV fistula in LUE, with thrill. Peripheral Pulses: Yes pulses 2+ throughout Skin no rashes or lesions noted Neuro oriented x3, CN's II-XII intact bilaterally, moves all extremities and no focal motor deficits Sensorium / Orientation: awake and alert Psych affect normal Assessment & Plan Assessment/Plan (1) COPD (chronic obstructive pulmonary disease): (2) Elevated troponin: (3) Hyperkalemia: PLAN: #Acute on chronic COPD exacerbation * resolving. Down to 2L of oxygen by nasal canula * on IV levaquin q48 hourly. * breathing treatment with bronchodilators. * titrate oxygen to maintain sats >90% * #Nonstemi * on aspirin, plavix and statin. * troponins trended up markedly. * cardiac cath yesterday showed severe triple vessel disease * had repeat cardiac cath yesterday for stent placement * on aspirin and Plavix as well as statin * #CKD stage IV * Creatinine is trended up to 4.57 today. He does have an AV fistula which was inserted a few months ago. * nephrology wants to hold off on initiation of dialysis for now, and monitor Cr * #Hyperkalemia: * Potassium is 5.9 today. Likely due to worsening Cr. Will monitor. * nephrology on board. Will try lokelma, as kayexalate hasnt had much benefit. #Nonanion gap metabolic acidosis * bicarb is 16. Anion gap is 13. Will monitor * nephrology on board * #A. fib: Currently rate controlled. On amiodarone and metoprolol #Type 2 diabetes mellitus: Lantus 30 units twice daily. Insulin sliding scale. Accu-Cheks AC at bedtime. #Depression: on escitalopram DVT prophylaxis: lovenox, renally dosed. Code status: full code. * Charges/Coding Visit Charges Inpatient E&M: 22111 Subs Hosp L3
[2021-03-01] MEDS: Umeclidinium Brm/Vilanterol 62.5-25 mcg Inh 1 PUFF INHALATION (12:29)
[2021-03-01 12:35] LABS: Bedside Glucose 344 mg/dL (70-110)
[2021-03-01] MEDS: 0.9% Saline Lock 10 ML Syringe IV ×2 (14:57→21:26)
[2021-03-01 17:35] LABS: Bedside Glucose 303 mg/dL (70-110)
[2021-03-01] MEDS: Cilostazol 50 MG Tablet 100 MG PO (21:25)
[2021-03-01] MEDS: Atorvastatin Calcium 20 MG Tablet PO (21:26)
[2021-03-01] MEDS: oxyCODONE 5 MG Tablet PO (21:26)
[2021-03-01 21:46] LABS: Bedside Glucose 298 mg/dL (70-110)
[2021-03-02] VITALS (13 sets, daily range): BP systolic 119–153; BP diastolic 71–76; PULSE 70–90; RESP 16–21; TEMP 36.4–36.7; O2SAT 93–94
[2021-03-02] MEDS: diazePAM 5 MG Tablet PO (02:54)
[2021-03-02] MEDS: Ipratropium/Albuterol Sulfate 3 ML AMPUL.NEB INHALATION ×4 (02:54→19:02)
[2021-03-02] MEDS: Insulin Lispro 100 UNIT/ML INSULN.PEN SC ×4 (05:14→12:24)
[2021-03-02] MEDS: 0.9% Saline Lock 10 ML Syringe IV (05:14)
[2021-03-02] MEDS: Levothyroxine 88 MCG Tablet PO (05:14)
[2021-03-02 05:20] LABS: Bedside Glucose 187 mg/dL (70-110)
[2021-03-02 05:53] LABS: Absolute Lymphocyte Count 0.43 X10^3/uL (0.83-4.51); Absolute Neutrophil Count 10.2 X10^3/uL (2.0-7.7); Basophil# 0.01 X10^3/uL; Basophil% 0.1 % (0-1); Hematocrit 30.4 % (40-54); Hemoglobin 9.6 g/dL (13.0-16.5); Lymphocyte # 0.43 X10^3/ul (0.83-4.51); Lymphocyte % 3.9 % (19-41); Mean Corp Hgb Conc 31.6 g/dL (32-36); Mean Corpuscular Hgb 29.2 pg (27.0-32.0); Mean Corpuscular Volume 92.4 fL (80-94); Mean Platelet Vol. 12.1 fl (6.2-12.0); Monocyte# 0.21 X10^3/uL; Monocyte% 1.9 % (0-10); NRBC Flagged by Analyzer 0 % (0-5); Neutrophil # 10.15 X10^3/uL (2.7-7.7); Neutrophil % 92.3 % (47-70); POSITIVE DIFFERENTIAL YES; Platelet Count 315 K/mm3 (150-450); RBC Distribution Width CV 13.5 % (11.6-14.6); RBC Distribution Width SD 45.7 fl (35.1-43.9); Red Blood Count 3.29 M/mm3 (4.6-6.2)
[2021-03-02 05:59] LABS: Differential Indicated SCAN CRITERIA MET
[2021-03-02 06:17] LABS: Anion Gap 12 (5-15); BUN 121 mg/dL (7-18); BUN/Creat Ratio 19.8 RATIO (10-20); Calcium,Total 8.1 mg/dL (8.5-10.1); Chloride 105 mmol/L (98-107); Creatinine, Serum 6.12 mg/dL (0.70-1.30); EST Glomerular Filtration Rate 10 mL/min (>60); Est Glom Filt Rate - Afr Amer 12 mL/min (>60); Estimated Creatinine Clearance 13.03 ml/min; Glucose 189 mg/dL (74-106); Potassium 5.7 mmol/L (3.5-5.1); Sodium Level 134 mmol/L (136-145)
[2021-03-02 06:25] LABS: Differential Comment SCANNED
[2021-03-02] MEDS: Amiodarone 200 MG Tablet PO (08:24)
[2021-03-02] MEDS: Allopurinol 300 MG Tablet PO (08:25)
[2021-03-02] MEDS: Pantoprazole Sodium 40 MG Tablet PO (08:25)
[2021-03-02] MEDS: Escitalopram Oxalate 20 MG Tablet PO (08:25)
[2021-03-02] MEDS: Isosorbide Mononitrate 30 MG Tablet PO (08:25)
[2021-03-02] MEDS: Clopidogrel Bisulfate 75 MG Tablet PO (08:25)
[2021-03-02] MEDS: Sodium Bicarbonate 650 MG Tablet PO ×3 (08:25→22:03)
[2021-03-02] MEDS: Aspirin E.C. 81 MG Tablet PO (08:25)
[2021-03-02] MEDS: Metoprolol(XL)Succ 50 MG Tablet PO (08:25)
[2021-03-02] MEDS: Ferrous Sulfate 325 MG Tablet PO (08:25)
[2021-03-02] MEDS: Cholecalciferol (VIT D3) 25 MCG TABLET (1,000 UNITS) 50 MCG PO (08:25)
[2021-03-02] MEDS: Finasteride 5 MG Tablet PO (08:26)
[2021-03-02] MEDS: Enoxaparin 30 MG/0.3 ML Syringe SC (08:26)
--- NOTE | 2021-03-02 08:27 | PCM.PN.CARD ---
Subjective Subjective Patient seen and evaluated. Appears to still be somewhat wheezy. Objective Data Vital Signs: Vital Signs Temp Pulse Resp BP Pulse Ox 98.0 F 88 20 H 153/76 H 93 03/02/21 08:17 03/02/21 08:17 03/02/21 08:17 03/02/21 08:17 03/02/21 08:17 Oxygen Flow Rate (L/min) 2 Oxygen Delivery Method Nasal Cannula Weight: 207 lb 3.752 oz Body Mass Index (BMI) 28.0 Intake & Output: Intake and Output for Last 24 Hours 02/28/21 03/01/21 03/02/21 23:59 23:59 23:59 Intake Total 2831.33 / 2831.33 945 / 945 300 / 300 Output Total 200 / 200 450 / 450 400 / 400 Balance 2631.33 / 2631.33 495 / 495 -100 / -100 Lab / Micro Data Result Diagrams: 03/02/21 05:00 03/02/21 05:00 Labs: Laboratory Results - last 24 hr 03/01/21 08:18: POC Glucose 274 H 03/01/21 12:27: POC Glucose 344 H 03/01/21 17:28: POC Glucose 303 H 03/01/21 21:35: POC Glucose 298 H 03/02/21 05:00: WBC 11.0, RBC 3.29 L, Hgb 9.6 L, Hct 30.4 L, MCV 92.4, MCH 29.2, MCHC 31.6 L, RDW Std Deviation 45.7 H, RDW Coeff of Joana 13.5, Plt Count 315, MPV 12.1 H, Immature Gran % (Auto) 1.800 H, Neut % (Auto) 92.3 H, Lymph % (Auto) 3.9 L, [place] % (Auto) 1.9, Eos % (Auto) 0.0, Baso % (Auto) 0.1, Absolute Neuts (auto) 10.2 H, Absolute Lymphs (auto) 0.43 L, Nucleated RBC % 0, Differential Comment SCANNED 03/02/21 05:00: Sodium 134 L, Potassium 5.7 H, Chloride 105, Carbon Dioxide 17.0 L, Anion Gap 12, BUN 121 H*, Creatinine 6.12 H, Estim Creat Clear Calc 13.03, Est GFR (MDRD) Af Amer 12 L, Est GFR (MDRD) Non-Af 10 L, BUN/Creatinine Ratio 19.8, Glucose 189 H, Calcium 8.1 L 03/02/21 05:14: POC Glucose 187 H Rhythm Strip Rhythm Strip: Sinus Tach Rate: 112 Ectopy: None Cardiology Labs/Tests 03/02/21 05:00: WBC 11.0, RBC 3.29 L, Hgb 9.6 L, Hct 30.4 L, MCV 92.4, MCH 29.2, MCHC 31.6 L, Plt Count 315, MPV 12.1 H, Immature Gran % (Auto) 1.800 H, Neut % (Auto) 92.3 H, Lymph % (Auto) 3.9 L, [place] % (Auto) 1.9, Eos % (Auto) 0.0, Baso % (Auto) 0.1, Absolute Neuts (auto) 10.2 H, Nucleated RBC % 0 03/02/21 05:00: Sodium 134 L, Potassium 5.7 H, Chloride 105, Carbon Dioxide 17.0 L, Anion Gap 12, BUN 121 H*, Creatinine 6.12 H, Est GFR (MDRD) Af Amer 12 L, Est GFR (MDRD) Non-Af 10 L, BUN/Creatinine Ratio 19.8, Glucose 189 H, Calcium 8.1 L Rhythm: EKG: ECHO: Stress Test: Cardiac Cath: PCI: CT Surgery: Holter monitor: EPS: PPM: CXR: Chest CT Scan: Physical Exam Const alert, oriented x3 and no apparent distress General Appearance: cooperative HEENT hearing grossly normal bilaterally Head and Scalp: atraumatic Eyes EOMs intact bilaterally Neck General: normal visual inspection Chest inspection of chest normal and palpation of chest normal Resp normal respiratory effort Auscultation: clear to auscultation bilaterally and wheezes Cardio regular rate, regular rhythm, S1 normal heart sound and S2 normal heart sound Jugular Venous Distention: JVD GI normal to inspection, nondistended, normoactive bowel sounds Extremity normal capillary refill and no pedal edema Extremity Narrative: Left upper extremity fistula Peripheral Pulses: Yes pulses 2+ throughout and femoral pulses present Skin no rashes or lesions noted Neuro oriented x3 and CN's II-XII intact bilaterally Psych Appearance: grossly normal and appropriate Assessment & Plan Assessment/Plan (1) Elevated troponin: PLAN: He does have evidence of a non-ST elevation myocardial infarction. Patient underwent cardiac catheterization which demonstrated the following: Normal left main coronary artery. Left anterior descending artery previously stented with 95% proximal stenosis noted and diffuse 70% stenosis noted in the stent First diagonal vessel which appears to be stented with subtotal occlusion Dominant left circumflex artery with proximal 50%, first obtuse marginal branch with proximal 50% and mid to distal 85% Mid circumflex artery in the AV groove segment with 95% stenosis feeding distal posterior lateral and posterior descending arteries Nondominant right coronary artery with 99% proximal stenosis He underwent multivessel angioplasty successfully. He however has had significant impairment in his renal function. (2) History of coronary artery stent placement: PLAN: He is status post previous angioplasty and stenting as noted above in 2003. He clearly has progression of disease due to a variety of factors. (3) Paroxysmal atrial fibrillation: PLAN: Does have a history of paroxysmal atrial fibrillation. He is maintaining sinus rhythm at this time. He will remain on the amiodarone. (4) Chronic kidney disease: PLAN: He does have renal dysfunction with impending dialysis. He already has a fistula placed. He has been seen by the library circulation assistant. He is rather short of breath today. I would recommend we obtain a natruretic peptide level and depending on the findings further recommendations will be made. Thank you for allowing me to participate in the care of your patient. Please don't hesitate to call if any issues arise. (5) Essential (primary) hypertension: PLAN: He does have a history of hypertension. His blood pressure appears to be under fair control I would not make any major changes. (6) Hyperlipidemia: QUALIFIERS: Hyperlipidemia type: unspecified Qualified Code(s): E78.5 - Hyperlipidemia, unspecified PLAN: He will continue with risk factor modification. Thank you for allowing me to participate in the care of your patient. Please don't hesitate to call if any issues arise.
[2021-03-02 08:40] LABS: Bedside Glucose 178 mg/dL (70-110)
[2021-03-02 09:22] LABS: BNP,B-Type NATRIURETIC PEPTIDE 679.5 pg/mL (0-100)
--- NOTE | 2021-03-02 09:41 | PN.RENAL_ITS ---
Subjective Subjective still with anxiety attacks, no chest pain no nausesa, vomiting. Creatinine continues to rise. Discussed short dialysis today with AVF. Objective Data Objective Data Vital Signs: Vital Signs Temp Pulse Resp BP Pulse Ox 98.0 F 88 20 H 153/76 H 93 03/02/21 08:30 03/02/21 08:30 03/02/21 08:30 03/02/21 08:30 03/02/21 08:30 Oxygen Flow Rate (L/min) 2 Oxygen Delivery Method Nasal Cannula Weight: 94 kg Body Mass Index (BMI) 28.0 Intake & Output: Intake and Output for Last 24 Hours 02/28/21 03/01/21 03/02/21 23:59 23:59 23:59 Intake Total 2831.33 / 2831.33 945 / 945 300 / 300 Output Total 200 / 200 450 / 450 400 / 400 Balance 2631.33 / 2631.33 495 / 495 -100 / -100 Lab / Micro Data Result Diagrams: 03/02/21 05:00 03/02/21 05:00 Labs: Laboratory Results - last 24 hr 03/01/21 12:27: POC Glucose 344 H 03/01/21 17:28: POC Glucose 303 H 03/01/21 21:35: POC Glucose 298 H 03/02/21 05:00: WBC 11.0, RBC 3.29 L, Hgb 9.6 L, Hct 30.4 L, MCV 92.4, MCH 29.2, MCHC 31.6 L, RDW Std Deviation 45.7 H, RDW Coeff of Joana 13.5, Plt Count 315, MPV 12.1 H, Immature Gran % (Auto) 1.800 H, Neut % (Auto) 92.3 H, Lymph % (Auto) 3.9 L, [place] % (Auto) 1.9, Eos % (Auto) 0.0, Baso % (Auto) 0.1, Absolute Neuts (auto) 10.2 H, Absolute Lymphs (auto) 0.43 L, Nucleated RBC % 0, Differential Comment SCANNED 03/02/21 05:00: Sodium 134 L, Potassium 5.7 H, Chloride 105, Carbon Dioxide 17.0 L, Anion Gap 12, BUN 121 H*, Creatinine 6.12 H, Estim Creat Clear Calc 13.03, Est GFR (MDRD) Af Amer 12 L, Est GFR (MDRD) Non-Af 10 L, BUN/Creatinine Ratio 19.8, Glucose 189 H, Calcium 8.1 L 03/02/21 05:00: B-Natriuretic Peptide 679.5 H 03/02/21 05:14: POC Glucose 187 H 03/02/21 08:15: POC Glucose 178 H Micro: Microbiology 02/26/21 04:42 Nasal Secretion SARS-CoV-2 Antigen (Rapid) - Final Rhythm Strip Rhythm Strip: Sinus Tach Rate: 112 Ectopy: None Physical Exam Const alert, oriented x3 and no apparent distress Resp Resp Narrative: improved with steroids Auscultation: wheezes Cardio regular rate Extremity no clubbing, cyanosis or edema Neuro Sensorium / Orientation: awake and alert Psych cooperative Assessment & Plan Assessment/Plan (1) Acute on chronic kidney failure: PLAN: worsening renal fxn ATN from contrast. discussed with pt initiating ialysis today for worsening renal fxn, persistent hyperkalemia. Monitor renal fxn to determine if will need further dialysis (2) Chronic renal failure, stage 4 (severe): PLAN: due to diabetes (3) NSTEMI (non-ST elevated myocardial infarction): PLAN: s/p PCI x4 vessels. Cardio following (4) Acute hyperkalemia: PLAN: kayexalate prn (5) DM type 2 (diabetes mellitus, type 2):
[2021-03-02] MEDS: Ceftriaxone 1 GM/50 ML BAG IV (09:53)
--- NOTE | 2021-03-02 10:00 | EKG12_ITS ---
Test Reason : AM EKG Blood Pressure : / mmHG Vent. Rate : 078 BPM Atrial Rate : 078 BPM P-R Int : 204 ms QRS Dur : 100 ms QT Int : 408 ms P-R-T Axes : 044 058 108 degrees QTc Int : 465 ms Normal sinus rhythm Nonspecific ST and T wave abnormality Prolonged QT Abnormal ECG When compared with ECG of 02-MAR-2021 04:42, AR interval has decreased Nonspecific T wave abnormality has replaced inverted T waves in Lateral leads Confirmed by HARSH ASIF, SARA ([id number]), rewrite editor JARED MADRID ([id number]) on 03/06/2021 8:40:20 AM Referred By: DAMIAN Confirmed By:SARA HOUSE MD
--- NOTE | 2021-03-02 10:44 | PN.HOSP_ITS ---
Subjective Subjective Patient seen and examined. He has no complaints today and feels well. Review of systems otherwise negative. His creatinine has trended up further today to 6.12 and BUN is 121. Bicarb is 17 and potassium is 5.7. Objective Data Objective Data Vital Signs: Vital Signs Temp Pulse Resp BP Pulse Ox 98.0 F 88 20 H 153/76 H 93 03/02/21 08:30 03/02/21 08:30 03/02/21 08:30 03/02/21 08:30 03/02/21 08:30 Oxygen Flow Rate (L/min) 2 Oxygen Delivery Method Nasal Cannula Weight: 207 lb 3.752 oz Body Mass Index (BMI) 28.0 Intake & Output: Intake and Output for Last 24 Hours 02/28/21 03/01/21 03/02/21 23:59 23:59 23:59 Intake Total 2831.33 / 2831.33 945 / 945 300 / 300 Output Total 200 / 200 450 / 450 400 / 400 Balance 2631.33 / 2631.33 495 / 495 -100 / -100 Lab / Micro Data Result Diagrams: 03/02/21 05:00 03/02/21 05:00 Labs: Laboratory Results - last 24 hr 03/01/21 12:27: POC Glucose 344 H 03/01/21 17:28: POC Glucose 303 H 03/01/21 21:35: POC Glucose 298 H 03/02/21 05:00: WBC 11.0, RBC 3.29 L, Hgb 9.6 L, Hct 30.4 L, MCV 92.4, MCH 29.2, MCHC 31.6 L, RDW Std Deviation 45.7 H, RDW Coeff of Joana 13.5, Plt Count 315, MPV 12.1 H, Immature Gran % (Auto) 1.800 H, Neut % (Auto) 92.3 H, Lymph % (Auto) 3.9 L, [place] % (Auto) 1.9, Eos % (Auto) 0.0, Baso % (Auto) 0.1, Absolute Neuts (auto) 10.2 H, Absolute Lymphs (auto) 0.43 L, Nucleated RBC % 0, Differential Comment SCANNED 03/02/21 05:00: Sodium 134 L, Potassium 5.7 H, Chloride 105, Carbon Dioxide 17.0 L, Anion Gap 12, BUN 121 H*, Creatinine 6.12 H, Estim Creat Clear Calc 13.03, Est GFR (MDRD) Af Amer 12 L, Est GFR (MDRD) Non-Af 10 L, BUN/Creatinine Ratio 19.8, Glucose 189 H, Calcium 8.1 L 03/02/21 05:00: B-Natriuretic Peptide 679.5 H 03/02/21 05:14: POC Glucose 187 H 03/02/21 08:15: POC Glucose 178 H Micro: Microbiology 02/26/21 04:42 Nasal Secretion SARS-CoV-2 Antigen (Rapid) - Final Rhythm Strip Rhythm Strip: Sinus Tach Rate: 112 Ectopy: None Physical Exam Const alert and oriented x3 General Appearance: cooperative Exam Limitations: no limitations HEENT normocephalic, head/scalp atraumatic and hearing grossly normal bilaterally Head and Scalp: normocephalic Eyes PERRL, EOMs intact bilaterally and conjunctivae normal Neck no lymphadenopathy and supple Resp Resp Narrative: Diminished breath sounds bibasally. Mild bilateral wheezing; no crackles. On 1L of oxygen by nasal canula Cardio regular rate, regular rhythm, S1 normal heart sound, S2 normal heart sound and no murmurs GI normal to inspection, nondistended, normoactive bowel sounds, soft to palpation, non-tender and non-distended Extremity normal to inspection, full ROM and no clubbing, cyanosis or edema Extremity Narrative: AV fistula in LUE, with thrill. Peripheral Pulses: Yes pulses 2+ throughout Skin no rashes or lesions noted Neuro oriented x3, CN's II-XII intact bilaterally, moves all extremities and no focal motor deficits Sensorium / Orientation: awake and alert Psych affect normal Assessment & Plan Assessment/Plan (1) COPD (chronic obstructive pulmonary disease): (2) Elevated troponin: (3) Hyperkalemia: PLAN: #Acute on chronic COPD exacerbation * resolving. Down to 2L of oxygen by nasal canula * on IV levaquin q48 hourly. * breathing treatment with bronchodilators. * titrate oxygen to maintain sats >90% * #Nonstemi * on aspirin, plavix and statin. * s/p cardiac cath which showed diffuse multivessel disease and he had multivessel angioplasty successfully * Cardiology on board * on aspirin and Plavix as well as statin * #NICK on CKD stage IV * Creatinine is trended up to 6.12 today. He does have an AV fistula which was inserted a few months ago. * potassium is up to 5.7 today. * Nephrology on board. Patient will benefit from dialysis * #Nonanion gap metabolic acidosis * bicarb is 17. Anion gap is 12. Will monitor * nephrology on board * #A. fib: Currently rate controlled. On amiodarone and metoprolol #Type 2 diabetes mellitus: Lantus 30 units twice daily. Insulin sliding scale. Accu-Cheks AC at bedtime. #Depression: on escitalopram DVT prophylaxis: lovenox, renally dosed. Code status: full code. * Charges/Coding Visit Charges Inpatient E&M: 75245 Subs Hosp L3
--- NOTE | 2021-03-02 11:31 | CL.I_ITS ---
Patient Name: BARI KELLY Study Date: 02/28/2021 Performing: Zari Burk MD Ht: 72 inches 183 cm : 1955 Wt: 207.5 lbs 94 kg Age: 65 Gender: male BSA: 2.16 PROCEDURE(S) PERFORMED IC12-([id number])NIKHIL W/WO PTCA, SINGLE CORONARY ARTERY IC13-([id number])NIKHIL W/WO PTCA, EACH ADD'L ART, SAME MAJOR IC12-([id number])NIKHIL W/WO PTCA, SINGLE CORONARY ARTERY CLINICAL PROFILE AND CO-MORBIDITIES Indications: ACS <= 24 hrs, NSTEMI Heart Failure: None Stress/Imaging Stress/Image Study Performed: No CONCLUSIONS Successful PCI of dLCx, OM1, pLCx and mLAD with NIKHIL. PTCA and cutting balloon angioplasty to ISR of p LAD RECOMMENDATIONS DESCRIPTION OF PROCEDURE The patient arrived to the procedure lab. The risks and benefits of the procedure as well as a full d escription of our services here and current unavailability of surgical backup were fully explained to the patient and/or their significant other prior to the catheterization. The Timeout was completed, verifying the correct patient and procedure. The patient's procedural site was prepped and draped in the usual fashion. Local anesthetic was given subcutaneously to right groin region with Lidocaine 2%. Using a modified Seldinger technique, arterial access was obtained via the right femoral artery, wit h Micropuncture set. xb3.5 Guide catheter was inserted and engaged into the LCA. BMW Guide wire was advanced to the Ci rcumflex. 3.0X12 EMERGE Balloon catheter was inserted. Balloon catheter was advanced across lesion in the circumflex, distal. PTCA balloon inflated at 6 atms for 10 secs. PTCA balloon inflated at 8 atms for 15 secs. 3.0X15 ORSIRO Drug Eluting stent was inserted. Drug Eluting stent was advanced across t he lesion in the circumflex, distal. BMW Guide wire was repositioned to the 1st OM 2.0X20 EMERGE Ball oon catheter was inserted. Balloon catheter was advanced across lesion in the first obtuse marginal, proximal. PTCA balloon inflated at 8 atms for 15 secs. PTCA balloon inflated at 8 atms for 10 secs. P TCA balloon inflated at 12 atms for 15 secs. PTCA balloon inflated at 12 atms for 10 secs. PTCA ballo on inflated at 14 atms for 40 secs. PTCA balloon inflated at 16 atms for 15 secs. 2.0X20 NC EMERGE Ba lloon catheter was inserted. Balloon catheter was advanced across lesion in the first obtuse marginal, proximal. PTCA balloon inflated at 12 atms for 15 secs. PTCA balloon inflated at 16 atms for 30 secs. PTCA balloon inflated at 16 atms for 15 secs. PTCA balloon inflated at 16 atms for 10 secs. PTCA balloon inflated at 18 atms for 30 secs. PTCA balloon inflated at 18 atms for 56 secs. 2.25X22 ORSIRO Drug Eluting stent was inserted. Drug Eluting stent was advanced across the lesion in the first obtuse marginal, proximal. Angiogram performed post stent deployment. BMW Guide wire was re positioned to the Circumflex 3.0X18 ORSIRO Drug Eluting stent was inserted. Drug Eluting stent was ad vanced across the lesion in the circumflex, proximal. Angiogram performed post stent deployment. [place] Guide wire was advanced to the Circumflex. BMW Guide wire was repositioned to the 1st OM 1.50X 8 EMERGE Balloon catheter was inserted ON THE BMW IN THE FIRST OM Balloon catheter was inserted post stent. 3.0X12 EMERGE Balloon catheter was inserted post stent IN THE PROXIMAL CIRC. Angiogram performed post balloon dilatation. BMW Guide wire was repositioned to the LAD 2.0X20 EMERGE Balloon catheter was inserted. Balloon catheter was advanced across lesion in the LAD, proximal. PTC A balloon inflated at 12 atms for 30 secs. PTCA balloon inflated at 12 atms for 30 secs. PTCA balloon inflated at 6 atms for 35 secs. PTCA balloon inflated at 14 atms for 20 secs. 2.5X10 WOLVERINE Ballo on catheter was inserted. Balloon catheter was advanced across lesion in the LAD, proximal. PTCA ball oon inflated at 12 atms for 35 secs. PTCA balloon inflated at 12 atms for 20 secs. PTCA balloon infla jensen at 12 atms for 30 secs. PTCA balloon inflated at 12 atms for 30 secs. Angiogram performed post ba lloon dilatation. 3x20 nc emerge Balloon catheter was inserted. Balloon catheter was advanced across lesion in the LAD, proximal. PTCA balloon inflated at 12 atms for 20 secs. PTCA balloon inflated at 1 4 atms for 40 secs. PTCA balloon inflated at 16 atms for 20 secs. orsiro 2.75x18 Drug Eluting stent was inserted advanced to mid lad Angiogram performed post stent deployment. The arteri al sheath was pulled and a Perclose closure device was deployed for hemostasis INTERVENTION INFORMATION LESION SITE: Circumflex (Distal) Lesion Complexity: High/C, chronic total occlusion: No, lesion at bifurcation: No, thrombus present: No, lesion length: 12 mm, culprit lesion: Yes, Previously treated lesion: No Pre Stenosis: 95 % Pre intervention VIOLET flow: 3 PROCEDURE: Drug Eluting Stent with pre dilatation. Post Stenosis: 0 % Post intervention VIOLET flow: 3 Lesion Devices: Roy .014 BMW [place] Straight 190cm Cardinal 6 Fr XB3.5 100cm Guide Catheter Kaleb Sci EMERGE MR 3.00x12 BALLOON Biotronik Evotec Adams MR NIKHIL 3.0x15 LESION SITE: 1st OM (Proximal) Lesion Complexity: High/C, chronic total occlusion: No, lesion at bifurcation: Yes, thrombus present: No, lesion length: 40 mm, culprit lesion: Yes, Previously treated lesion: Yes, In-stent restenosis: Yes Pre Stenosis: 95 % Pre intervention VIOLET flow: 2 PROCEDURE: Drug Eluting Stent with pre and post dilatation There was ISR of the previous stent that was treated with PTCA alone. Distal to this the vessel was t oo small for a 2.25mm stent and was treated with PTCA alone. Proximal part was treated with 2.25 mm s tent. Post Stenosis: 0 % Post intervention VIOLET flow: 3 Lesion Devices: Roy .014 BMW [place] Straight 190cm Cardinal 6 Fr XB3.5 100cm Guide Catheter Kaleb Sci EMERGE MR 2.00x20 BALLOON Kaleb Sci NC EMERGE MR 2.00x20 BALLOON Biotronik Evotec Adams MR NIKHIL 2.25x22 Terumo .014 Runthrough Extra Floppy 180cm straight Kaleb Sci EMERGE MR 1.50x08 BALLOON LESION SITE: Circumflex (Proximal) Lesion Complexity: High/C, chronic total occlusion: No, lesion at bifurcation: Yes, thrombus present: No, lesion length: 12 mm, culprit lesion: Yes, Previously treated lesion: No Pre Stenosis: 80 % Pre intervention VIOLET flow: 3 PROCEDURE: Drug Eluting Stent with post dilatation The stent was deployed jailing the OM1 vessel. The OM1 was then wired again and kissing balloon infla tion was performed with a 1.5 mm balloon in the OM and 3mm balloon in the LCx Post Stenosis: 0 % Post intervention VIOLET flow: 3 Lesion Devices: Roy .014 BMW [place] Straight 190cm Cardinal 6 Fr XB3.5 100cm Guide Catheter Kaleb Sci EMERGE MR 3.00x12 BALLOON Biotronik Mobile Iron MR NIKHIL 3.0x18 LESION SITE: LAD (Proximal) Lesion Complexity: High/C, chronic total occlusion: No, lesion at bifurcation: No, thrombus present: No, lesion length: 25 mm, culprit lesion: Yes, Previously treated lesion: Yes, Timeframe of previous treatment: Time unknown, Previously treated with a stent: Yes Stent Type: with stent type unknown, In -stent restenosis: Yes Pre Stenosis: 90 % Pre intervention VIOLET flow: 3 PROCEDURE: Balloon Angioplasty Cutting Balloon Angioplasty Post Stenosis: 20 % Post intervention VIOLET flow: 3 Lesion Devices: Roy .014 BMW [place] Straight 190cm Cardinal 6 Fr XB3.5 100cm Guide Catheter Kaleb Sci [place] cutting balloon 2.5x10 Kaleb Sci NC EMERGE MR 3.00x20 BALLOON LESION SITE: LAD (Mid) Lesion Complexity: High/C, chronic total occlusion: No, lesion at bifurcation: No, thrombus present: No, lesion length: 15 mm, culprit lesion: Yes, Previously treated lesion: No Pre Stenosis: 80- % Pre intervention VIOLET flow: 3 PROCEDURE: Drug Eluting Stent with pre dilatation. Post Stenosis: 0 % Post intervention VIOLET flow: 3 Lesion Devices: Algentis MR NIKHIL 2.75x18 COMPLICATIONS No Complications PROCEDURE MEDICATIONS Fentanyl 50 mcg IV Versed 1 mg IV Fentanyl 50 mcg IV Oxygen: 2 L/min via nasal cannula Heparin 7000 unit(s) IV 02/28/2021 11:13:42 Heparin 3000 unit(s) IV 02/28/2021 11:53:26 Heparin 1000 unit(s) IV 02/28/2021 12:20:51 SUMMARY OF HEMODYNAMIC DATA Time AIR REST ECG 10:47:29 AO 119/66 (88) SA 11:15:21 AO 123/65 (88) 11:46:52 AO 156/79 (111) 12:23:37 Signed By Zari Burk MD On 03/02/2021 11:30:42 Zari Burk MD
[2021-03-02] MEDS: predniSONE 20 MG Tablet 40 MG PO (12:25)
[2021-03-02] MEDS: Umeclidinium Brm/Vilanterol 62.5-25 mcg Inh 1 PUFF INHALATION (12:25)
[2021-03-02 12:30] LABS: Bedside Glucose 282 mg/dL (70-110)
[2021-03-02 15:18] LABS: Hepatitis B Surface Antigen Non-Reactive (Nonreactive)
--- NOTE | 2021-03-02 20:19 | DIALYSIS ---
HD tx 2hrs completed without complications. Pt stable, tolerated tx well. Pt ran even. Report given to DEVEN Pina.
[2021-03-02] MEDS: Atorvastatin Calcium 20 MG Tablet PO (22:03)
[2021-03-02] MEDS: Cilostazol 50 MG Tablet 100 MG PO (22:03)
[2021-03-02 22:11] LABS: Bedside Glucose 144 mg/dL (70-110)
[2021-03-03] VITALS (16 sets, daily range): BP systolic 112–151; BP diastolic 57–85; PULSE 80–89; RESP 18–24; TEMP 36.4–36.9; O2SAT 92–98
[2021-03-03] MEDS: Ipratropium/Albuterol Sulfate 3 ML AMPUL.NEB INHALATION ×4 (00:56→18:59)
[2021-03-03] MEDS: diazePAM 5 MG Tablet PO (02:07)
[2021-03-03] MEDS: Levothyroxine 88 MCG Tablet PO (05:07)
[2021-03-03] MEDS: Pantoprazole Sodium 40 MG Tablet PO (08:03)
[2021-03-03] MEDS: Enoxaparin 30 MG/0.3 ML Syringe SC (08:03)
[2021-03-03] MEDS: Allopurinol 300 MG Tablet PO (08:04)
[2021-03-03] MEDS: predniSONE 20 MG Tablet 40 MG PO (08:04)
[2021-03-03] MEDS: Ferrous Sulfate 325 MG Tablet PO (08:04)
[2021-03-03] MEDS: Cholecalciferol (VIT D3) 25 MCG TABLET (1,000 UNITS) 50 MCG PO (08:04)
[2021-03-03] MEDS: Aspirin E.C. 81 MG Tablet PO (08:04)
[2021-03-03] MEDS: Isosorbide Mononitrate 30 MG Tablet PO (08:04)
[2021-03-03] MEDS: Clopidogrel Bisulfate 75 MG Tablet PO (08:04)
[2021-03-03] MEDS: Sodium Bicarbonate 650 MG Tablet PO ×3 (08:04→22:12)
[2021-03-03] MEDS: Amiodarone 200 MG Tablet PO (08:05)
[2021-03-03 09:32] LABS: Absolute Lymphocyte Count 0.89 X10^3/uL (0.83-4.51); Absolute Neutrophil Count 13.6 X10^3/uL (2.0-7.7); Basophil# 0.02 X10^3/uL; Basophil% 0.1 % (0-1); Hematocrit 31.3 % (40-54); Hemoglobin 10.3 g/dL (13.0-16.5); Lymphocyte # 0.89 X10^3/ul (0.83-4.51); Lymphocyte % 5.7 % (19-41); Mean Corp Hgb Conc 32.9 g/dL (32-36); Mean Corpuscular Hgb 29.5 pg (27.0-32.0); Mean Corpuscular Volume 89.7 fL (80-94); Mean Platelet Vol. 11.7 fl (6.2-12.0); Monocyte# 0.96 X10^3/uL; Monocyte% 6.1 % (0-10); NRBC Flagged by Analyzer 0.2 % (0-5); Neutrophil # 13.64 X10^3/uL (2.7-7.7); Neutrophil % 86.6 % (47-70); Platelet Count 279 K/mm3 (150-450); RBC Distribution Width CV 13.6 % (11.6-14.6); RBC Distribution Width SD 44.4 fl (35.1-43.9); Red Blood Count 3.49 M/mm3 (4.6-6.2); White Blood Count 15.8 K/mm3 (4.4-11.0)
[2021-03-03] MEDS: Ceftriaxone 1 GM/50 ML BAG IV (10:01)
[2021-03-03] MEDS: Metoprolol(XL)Succ 50 MG Tablet PO (10:01)
[2021-03-03] MEDS: Finasteride 5 MG Tablet PO (10:02)
[2021-03-03] MEDS: Escitalopram Oxalate 20 MG Tablet PO (10:02)
[2021-03-03] MEDS: Ondansetron 4 MG/2 ML Vial IV (10:09)
[2021-03-03] MEDS: 0.9% Saline Lock 10 ML Syringe IV (10:10)
[2021-03-03 10:34] LABS: Anion Gap 15 (5-15); BUN 112 mg/dL (7-18); BUN/Creat Ratio 17.3 RATIO (10-20); Calcium,Total 7.9 mg/dL (8.5-10.1); Chloride 99 mmol/L (98-107); Creatinine, Serum 6.47 mg/dL (0.70-1.30); EST Glomerular Filtration Rate 9 mL/min (>60); Est Glom Filt Rate - Afr Amer 11 mL/min (>60); Estimated Creatinine Clearance 12.33 ml/min; Glucose 85 mg/dL (74-106); Potassium 4.9 mmol/L (3.5-5.1); Sodium Level 135 mmol/L (136-145)
--- NOTE | 2021-03-03 11:13 | PN.HOSP_ITS ---
Subjective Subjective Patient seen and examined. He complains of some wheezing. He has no other complaints and review of systems is otherwise negative. He is on 2 L of oxygen. Patient had dialysis yesterday. Objective Data Objective Data Vital Signs: Vital Signs Temp Pulse Resp BP Pulse Ox 98.5 F 84 20 H 151/85 H 96 03/03/21 08:00 03/03/21 10:01 03/03/21 08:00 03/03/21 08:00 03/03/21 08:00 Oxygen Flow Rate (L/min) 2 Oxygen Delivery Method Nasal Cannula Weight: 207 lb 3.752 oz Body Mass Index (BMI) 28.0 Intake & Output: Intake and Output for Last 24 Hours 03/01/21 03/02/21 03/03/21 23:59 23:59 23:59 Intake Total 945 / 945 1155 / 1155 690 / 690 Output Total 450 / 450 800 / 800 Balance 495 / 495 355 / 355 690 / 690 Lab / Micro Data Result Diagrams: 03/03/21 09:00 03/03/21 09:00 Labs: Laboratory Results - last 24 hr 03/02/21 12:24: POC Glucose 282 H 03/02/21 14:00: Hep Bs Antigen Non-Reactive 03/02/21 22:00: POC Glucose 144 H 03/03/21 09:00: WBC 15.8 H, RBC 3.49 L, Hgb 10.3 L, Hct 31.3 L, MCV 89.7, MCH 29.5, MCHC 32.9, RDW Std Deviation 44.4 H, RDW Coeff of Joana 13.6, Plt Count 279, MPV 11.7, Immature Gran % (Auto) 1.500 H, Neut % (Auto) 86.6 H, Lymph % (Auto) 5.7 L, [place] % (Auto) 6.1, Eos % (Auto) 0.0, Baso % (Auto) 0.1, Absolute Neuts (auto) 13.6 H, Absolute Lymphs (auto) 0.89, Nucleated RBC % 0.2 03/03/21 09:00: Sodium 135 L, Potassium 4.9, Chloride 99, Carbon Dioxide 21.0, Anion Gap 15, BUN 112 H*, Creatinine 6.47 H, Estim Creat Clear Calc 12.33, Est GFR (MDRD) Af Amer 11 L, Est GFR (MDRD) Non-Af 9 L, BUN/Creatinine Ratio 17.3, Glucose 85, Calcium 7.9 L Micro: Microbiology 02/26/21 04:42 Nasal Secretion SARS-CoV-2 Antigen (Rapid) - Final Rhythm Strip Rhythm Strip: Sinus Tach Rate: 112 Ectopy: None Physical Exam Const alert and oriented x3 General Appearance: cooperative Exam Limitations: no limitations HEENT normocephalic, head/scalp atraumatic and hearing grossly normal bilaterally Head and Scalp: normocephalic Eyes PERRL, EOMs intact bilaterally and conjunctivae normal Neck no lymphadenopathy and supple Resp Resp Narrative: Diminished breath sounds bibasally. Mild bilateral wheezing; no crackles. On 2L of oxygen by nasal canula Cardio regular rate, regular rhythm, S1 normal heart sound, S2 normal heart sound and no murmurs GI normal to inspection, nondistended, normoactive bowel sounds, soft to palpation, non-tender and non-distended Extremity normal to inspection, full ROM and no clubbing, cyanosis or edema Extremity Narrative: AV fistula in LUE, with thrill. Peripheral Pulses: Yes pulses 2+ throughout Skin no rashes or lesions noted Neuro oriented x3, CN's II-XII intact bilaterally, moves all extremities and no focal motor deficits Sensorium / Orientation: awake and alert Psych affect normal Assessment & Plan Assessment/Plan (1) COPD (chronic obstructive pulmonary disease): (2) Elevated troponin: (3) Hyperkalemia: PLAN: #Acute on chronic COPD exacerbation * Improvinig. on 2L of oxygen by nasal canula * on IV levaquin q48 hourly. * breathing treatment with bronchodilators. * titrate oxygen to maintain sats >90% * #Nonstemi * on aspirin, plavix and statin. * s/p cardiac cath which showed diffuse multivessel disease and he had multivessel angioplasty successfully * Cardiology on board * on aspirin and Plavix as well as statin * #NICK on CKD stage IV * Creatinine is 6.47 today. He does have an AV fistula which was inserted a few months ago. * potassium is 4.9 today * Nephrology on board. Patient will benefit from dialysis * had dialysis yesterday. #Nonanion gap metabolic acidosis * resolved with initiation of dialysis * nephrology on board. * #A. fib: Currently rate controlled. On amiodarone and metoprolol #Type 2 diabetes mellitus: Lantus 30 units twice daily. Insulin sliding scale. Accu-Cheks AC at bedtime. #Depression: on escitalopram DVT prophylaxis: lovenox, renally dosed. Code status: full code. * Charges/Coding Visit Charges Inpatient E&M: 03069 Subs Hosp L2
[2021-03-03 11:25] LABS: Bedside Glucose 64 mg/dL (70-110)
[2021-03-03] MEDS: Insulin Lispro 100 UNIT/ML INSULN.PEN SC ×4 (11:40→22:11)
[2021-03-03] MEDS: Umeclidinium Brm/Vilanterol 62.5-25 mcg Inh 1 PUFF INHALATION (11:41)
[2021-03-03 12:25] LABS: Bedside Glucose 161 mg/dL (70-110)
--- NOTE | 2021-03-03 13:11 | PCM.PN.REN ---
Subjective Subjective wheezing improved. tolerated HD x2hrs last night well.Creatinine elevated today, will arrange dialysis later today. Denies nausea, vomiting, chest pain. Objective Data Objective Data Vital Signs: Vital Signs Temp Pulse Resp BP Pulse Ox 98.5 F 84 20 H 151/85 H 96 03/03/21 08:00 03/03/21 10:01 03/03/21 08:00 03/03/21 08:00 03/03/21 08:00 Oxygen Flow Rate (L/min) 2 Oxygen Delivery Method Nasal Cannula Weight: 94 kg Body Mass Index (BMI) 28.0 Intake & Output: Intake and Output for Last 24 Hours 03/01/21 03/02/21 03/03/21 23:59 23:59 23:59 Intake Total 945 / 945 1155 / 1155 1275 / 1275 Output Total 450 / 450 800 / 800 Balance 495 / 495 355 / 355 1275 / 1275 Lab / Micro Data Result Diagrams: 03/03/21 09:00 03/03/21 09:00 Labs: Laboratory Results - last 24 hr 03/02/21 14:00: Hep Bs Antigen Non-Reactive 03/02/21 22:00: POC Glucose 144 H 03/03/21 07:55: POC Glucose 64 L 03/03/21 09:00: WBC 15.8 H, RBC 3.49 L, Hgb 10.3 L, Hct 31.3 L, MCV 89.7, MCH 29.5, MCHC 32.9, RDW Std Deviation 44.4 H, RDW Coeff of Joana 13.6, Plt Count 279, MPV 11.7, Immature Gran % (Auto) 1.500 H, Neut % (Auto) 86.6 H, Lymph % (Auto) 5.7 L, [place] % (Auto) 6.1, Eos % (Auto) 0.0, Baso % (Auto) 0.1, Absolute Neuts (auto) 13.6 H, Absolute Lymphs (auto) 0.89, Nucleated RBC % 0.2 03/03/21 09:00: Sodium 135 L, Potassium 4.9, Chloride 99, Carbon Dioxide 21.0, Anion Gap 15, BUN 112 H*, Creatinine 6.47 H, Estim Creat Clear Calc 12.33, Est GFR (MDRD) Af Amer 11 L, Est GFR (MDRD) Non-Af 9 L, BUN/Creatinine Ratio 17.3, Glucose 85, Calcium 7.9 L 03/03/21 11:39: POC Glucose 161 H Micro: Microbiology 02/26/21 04:42 Nasal Secretion SARS-CoV-2 Antigen (Rapid) - Final Rhythm Strip Rhythm Strip: Sinus Tach Rate: 112 Ectopy: None Physical Exam Const alert, oriented x3 and no apparent distress Resp Resp Narrative: faint crackles in bases, wheezing improved Cardio regular rate Extremity Extremity Narrative: no edema in legs, mild UE edema, stable General Extremity: AV fistula Neuro Sensorium / Orientation: awake Assessment & Plan Assessment/Plan (1) Acute on chronic kidney failure: PLAN: ATN from contrast. dialysis today #2 today with 17g needles. Continue to monitor renal fxn for recovery. (2) Chronic renal failure, stage 4 (severe): PLAN: due to diabetes (3) NSTEMI (non-ST elevated myocardial infarction): PLAN: s/p PCI x4 vessels. Cardio following (4) Acute hyperkalemia: PLAN: resolved with dialysis (5) DM type 2 (diabetes mellitus, type 2): (6) Anemia: PLAN: check iron studies on Friday, hgb stable
[2021-03-03 18:36] LABS: Bedside Glucose 143 mg/dL (70-110)
[2021-03-03] MEDS: Atorvastatin Calcium 20 MG Tablet PO (20:19)
[2021-03-03] MEDS: Cilostazol 50 MG Tablet 100 MG PO (20:20)
--- NOTE | 2021-03-03 20:55 | DIALYSIS ---
Hemodialysis x3 hours completed at 1830 on a 2K bath, tolerated well, UF 0mL, accessed via MICA AVF using 17G needles, worked well, needles pulled post treatment and stasis achieved without issue, HepB Surface antibody and Total Core Antibody ordered to be drawn
[2021-03-03 22:20] LABS: Bedside Glucose 167 mg/dL (70-110)
[2021-03-04] VITALS (13 sets, daily range): BP systolic 102–128; BP diastolic 61–71; PULSE 81–91; RESP 18–24; TEMP 36.5–36.9; O2SAT 94–96
[2021-03-04] MEDS: diazePAM 5 MG Tablet PO ×3 (01:46→20:15)
[2021-03-04] MEDS: Ipratropium/Albuterol Sulfate 3 ML AMPUL.NEB INHALATION ×4 (02:01→19:10)
[2021-03-04] MEDS: Levothyroxine 88 MCG Tablet PO (05:30)
[2021-03-04 07:18] LABS: Absolute Lymphocyte Count 1.42 X10^3/uL (0.83-4.51); Absolute Neutrophil Count 11.2 X10^3/uL (2.0-7.7); Basophil# 0.03 X10^3/uL; Basophil% 0.2 % (0-1); Hemoglobin 9.2 g/dL (13.0-16.5); Lymphocyte # 1.42 X10^3/ul (0.83-4.51); Mean Corp Hgb Conc 32.9 g/dL (32-36); Mean Corpuscular Hgb 28.9 pg (27.0-32.0); Mean Corpuscular Volume 88.1 fL (80-94); Mean Platelet Vol. 11.6 fl (6.2-12.0); Monocyte# 1.31 X10^3/uL; Monocyte% 9.2 % (0-10); NRBC Flagged by Analyzer 0 % (0-5); Neutrophil # 11.21 X10^3/uL (2.7-7.7); Neutrophil % 78.8 % (47-70); Platelet Count 213 K/mm3 (150-450); RBC Distribution Width CV 13.2 % (11.6-14.6); RBC Distribution Width SD 42.6 fl (35.1-43.9); Red Blood Count 3.18 M/mm3 (4.6-6.2); White Blood Count 14.2 K/mm3 (4.4-11.0)
[2021-03-04] MEDS: Ceftriaxone 1 GM/50 ML BAG IV (09:08)
[2021-03-04] MEDS: 0.9% Saline Lock 10 ML Syringe IV ×2 (09:08→20:16)
[2021-03-04 09:25] LABS: Bedside Glucose 50 mg/dL (70-110)
[2021-03-04] MEDS: Sodium Bicarbonate 650 MG Tablet PO ×4 (09:27→20:16)
[2021-03-04] MEDS: Metoprolol(XL)Succ 50 MG Tablet PO (09:27)
[2021-03-04] MEDS: Aspirin E.C. 81 MG Tablet PO (09:28)
[2021-03-04] MEDS: Cholecalciferol (VIT D3) 25 MCG TABLET (1,000 UNITS) 50 MCG PO (09:28)
[2021-03-04] MEDS: Pantoprazole Sodium 40 MG Tablet PO (09:29)
[2021-03-04] MEDS: Enoxaparin 30 MG/0.3 ML Syringe SC (09:29)
[2021-03-04] MEDS: Isosorbide Mononitrate 30 MG Tablet PO (09:29)
[2021-03-04] MEDS: Clopidogrel Bisulfate 75 MG Tablet PO (09:30)
[2021-03-04] MEDS: Ferrous Sulfate 325 MG Tablet PO (09:30)
[2021-03-04] MEDS: predniSONE 20 MG Tablet 40 MG PO (09:33)
[2021-03-04] MEDS: Amiodarone 200 MG Tablet PO (09:33)
[2021-03-04] MEDS: Escitalopram Oxalate 20 MG Tablet PO (09:33)
[2021-03-04] MEDS: Finasteride 5 MG Tablet PO (09:34)
[2021-03-04] MEDS: Allopurinol 300 MG Tablet PO (09:35)
[2021-03-04 09:51] LABS: Bedside Glucose 75 mg/dL (70-110)
[2021-03-04] MEDS: Insulin Lispro 100 UNIT/ML INSULN.PEN SC ×5 (12:10→20:19)
[2021-03-04] MEDS: Umeclidinium Brm/Vilanterol 62.5-25 mcg Inh 1 PUFF INHALATION (12:11)
[2021-03-04 12:16] LABS: Bedside Glucose 192 mg/dL (70-110)
--- NOTE | 2021-03-04 12:31 | PN.HOSP_ITS ---
Subjective Subjective Patient seen and examined. He was wheezing again. He has no complaints. He didnt have fluids removed during dialysis yesterday. He had just had a breathing treatment a time of reivew. Objective Data Objective Data Vital Signs: Vital Signs Temp Pulse Resp BP Pulse Ox 98.2 F 91 18 128/67 H 95 03/04/21 08:57 03/04/21 09:27 03/04/21 08:57 03/04/21 08:57 03/04/21 08:57 Oxygen Flow Rate (L/min) 4 Oxygen Delivery Method Nasal Cannula Weight: 207 lb 3.752 oz Body Mass Index (BMI) 28.0 Intake & Output: Intake and Output for Last 24 Hours 03/02/21 03/03/21 03/04/21 23:59 23:59 23:59 Intake Total 1155 / 1155 1275 / 1475 505 / 505 Output Total 800 / 800 300 / 300 Balance 355 / 355 975 / 1175 505 / 505 Lab / Micro Data Result Diagrams: 03/04/21 06:43 03/03/21 09:00 Labs: Laboratory Results - last 24 hr 03/03/21 18:30: POC Glucose 143 H 03/03/21 22:10: POC Glucose 167 H 03/04/21 06:43: WBC 14.2 H, RBC 3.18 L, Hgb 9.2 L, Hct 28.0 L, MCV 88.1, MCH 28.9, MCHC 32.9, RDW Std Deviation 42.6, RDW Coeff of Joana 13.2, Plt Count 213, MPV 11.6, Immature Gran % (Auto) 1.800 H, Neut % (Auto) 78.8 H, Lymph % (Auto) 10.0 L, [place] % (Auto) 9.2, Eos % (Auto) 0.0, Baso % (Auto) 0.2, Absolute Neuts (auto) 11.2 H, Absolute Lymphs (auto) 1.42, Nucleated RBC % 0 03/04/21 09:22: POC Glucose 50 L 03/04/21 09:47: POC Glucose 75 03/04/21 12:09: POC Glucose 192 H Micro: Microbiology 02/26/21 04:42 Nasal Secretion SARS-CoV-2 Antigen (Rapid) - Final Rhythm Strip Rhythm Strip: Sinus Tach Rate: 112 Ectopy: None Physical Exam Const alert, oriented x3 and no apparent distress General Appearance: cooperative Exam Limitations: no limitations HEENT normocephalic, head/scalp atraumatic and hearing grossly normal bilaterally Head and Scalp: normocephalic Eyes PERRL, EOMs intact bilaterally and conjunctivae normal Neck no lymphadenopathy and supple Resp Resp Narrative: Diminished breath sounds bibasally. Mild bilateral wheezing; no crackles. On 4L of oxygen by nasal canula Cardio regular rate, regular rhythm, S1 normal heart sound, S2 normal heart sound and no murmurs GI normal to inspection, nondistended, normoactive bowel sounds, soft to palpation, non-tender and non-distended Extremity normal to inspection, full ROM and no clubbing, cyanosis or edema Extremity Narrative: AV fistula in LUE, with thrill. Peripheral Pulses: Yes pulses 2+ throughout Skin no rashes or lesions noted Neuro oriented x3, CN's II-XII intact bilaterally, moves all extremities and no focal motor deficits Sensorium / Orientation: awake and alert Psych affect normal Assessment & Plan Assessment/Plan (1) COPD (chronic obstructive pulmonary disease): (2) Elevated troponin: (3) Hyperkalemia: PLAN: #Acute on chronic COPD exacerbation * Improvinig. on 4L of oxygen by nasal canula today. patient wheezing today. * on IV levaquin q48 hourly. * breathing treatment with bronchodilators. * titrate oxygen to maintain sats >90% * #Nonstemi * on aspirin, plavix and statin. * s/p cardiac cath which showed diffuse multivessel disease and he had mul tivessel angioplasty successfully * Cardiology on board * on aspirin and Plavix as well as statin * #NICK on CKD stage IV * he appears to be in fluid overload by 6.8L, which is likely contributing to his worsening shortness of breath and wheezing. * has had 2 sessions of dialysis so far * didnt have fluid taken off during dialysis yesterday * to have dialysis tomorrow, and will likely need to be set up in the community for outpatient dialysis * #Nonanion gap metabolic acidosis * resolved with initiation of dialysis * nephrology on board. * #A. fib: Currently rate controlled. On amiodarone and metoprolol #Type 2 diabetes mellitus: Lantus 30 units twice daily. Insulin sliding scale. Accu-Cheks AC at bedtime. #Depression: on escitalopram DVT prophylaxis: lovenox, renally dosed. Code status: full code. * Charges/Coding Visit Charges Inpatient E&M: 85728 Subs Hosp L2
[2021-03-04 13:28] LABS: Anion Gap 12 (5-15); BUN 89 mg/dL (7-18); Calcium,Total 7.8 mg/dL (8.5-10.1); Chloride 96 mmol/L (98-107); Creatinine, Serum 5.94 mg/dL (0.70-1.30); EST Glomerular Filtration Rate 10 mL/min (>60); Est Glom Filt Rate - Afr Amer 12 mL/min (>60); Estimated Creatinine Clearance 13.43 ml/min; Glucose 185 mg/dL (74-106); Potassium 4.2 mmol/L (3.5-5.1); Sodium Level 131 mmol/L (136-145)
[2021-03-04 16:55] LABS: Bedside Glucose 236 mg/dL (70-110)
[2021-03-04] MEDS: Cilostazol 50 MG Tablet 100 MG PO (20:16)
[2021-03-04] MEDS: Furosemide 40 MG/4 ML Vial IV (20:16)
[2021-03-04] MEDS: Atorvastatin Calcium 20 MG Tablet PO (20:17)
[2021-03-04 20:31] LABS: Bedside Glucose 298 mg/dL (70-110)
[2021-03-05] VITALS (13 sets, daily range): BP systolic 124–137; BP diastolic 62–73; PULSE 76–95; RESP 0–20; TEMP 36.6–36.8; O2SAT 91–96
[2021-03-05] MEDS: Levothyroxine 88 MCG Tablet PO (05:09)
[2021-03-05 06:21] LABS: Bedside Glucose 119 mg/dL (70-110)
[2021-03-05 06:59] LABS: Basophil# 0.03 X10^3/uL; Basophil% 0.2 % (0-1); Hematocrit 29.7 % (40-54); Hemoglobin 9.7 g/dL (13.0-16.5); Lymphocyte % 7.1 % (19-41); Mean Corp Hgb Conc 32.7 g/dL (32-36); Mean Corpuscular Hgb 28.8 pg (27.0-32.0); Mean Corpuscular Volume 88.1 fL (80-94); Mean Platelet Vol. 12.5 fl (6.2-12.0); Monocyte# 1.14 X10^3/uL; Monocyte% 7.3 % (0-10); NRBC Flagged by Analyzer 0 % (0-5); Neutrophil % 83.7 % (47-70); Platelet Count 219 K/mm3 (150-450); RBC Distribution Width CV 13.1 % (11.6-14.6); Red Blood Count 3.37 M/mm3 (4.6-6.2); White Blood Count 15.5 K/mm3 (4.4-11.0)
[2021-03-05] MEDS: Ipratropium/Albuterol Sulfate 3 ML AMPUL.NEB INHALATION ×3 (07:23→19:17)
[2021-03-05 07:38] LABS: Albumin, Serum 2.7 g/dL (3.2-5.0); BUN 101 mg/dL (7-18); BUN/Creat Ratio 14.9 RATIO (10-20); Calcium,Total 8.3 mg/dL (8.5-10.1); Chloride 98 mmol/L (98-107); Creatinine, Serum 6.76 mg/dL (0.70-1.30); EST Glomerular Filtration Rate 9 mL/min (>60); Est Glom Filt Rate - Afr Amer 11 mL/min (>60); Ferritin 208 ng/mL (26-388); Glucose 121 mg/dL (74-106); Iron 29 ug/dL (65-175); Iron Binding Capacity,Total 279 ug/dL (250-450); PERCENT IRON SATURATION 10.4 % (15.0-55.0); Phosphorus 8.2 mg/dL (2.5-4.9); Potassium 4.6 mmol/L (3.5-5.1); Sodium Level 132 mmol/L (136-145)
[2021-03-05 08:45] LABS: Hepatitis B Surface Antibody Non-Reactive
[2021-03-05] MEDS: Insulin Lispro 100 UNIT/ML INSULN.PEN SC ×4 (08:55→22:03)
[2021-03-05] MEDS: predniSONE 20 MG Tablet 40 MG PO (08:56)
[2021-03-05] MEDS: Allopurinol 300 MG Tablet PO (09:05)
[2021-03-05] MEDS: 0.9% Saline Lock 10 ML Syringe IV (09:05)
[2021-03-05] MEDS: Cholecalciferol (VIT D3) 25 MCG TABLET (1,000 UNITS) 50 MCG PO (09:05)
[2021-03-05] MEDS: Finasteride 5 MG Tablet PO (09:06)
[2021-03-05] MEDS: Aspirin E.C. 81 MG Tablet PO (09:06)
[2021-03-05] MEDS: Metoprolol(XL)Succ 50 MG Tablet PO (09:06)
[2021-03-05] MEDS: Ferrous Sulfate 325 MG Tablet PO (09:06)
[2021-03-05] MEDS: Pantoprazole Sodium 40 MG Tablet PO (09:06)
[2021-03-05] MEDS: Isosorbide Mononitrate 30 MG Tablet PO (09:06)
[2021-03-05] MEDS: Sodium Bicarbonate 650 MG Tablet PO ×4 (09:06→21:58)
[2021-03-05] MEDS: Ceftriaxone 1 GM/50 ML BAG IV (09:06)
[2021-03-05] MEDS: Amiodarone 200 MG Tablet PO (09:06)
[2021-03-05] MEDS: Escitalopram Oxalate 20 MG Tablet PO (09:06)
[2021-03-05] MEDS: Clopidogrel Bisulfate 75 MG Tablet PO (09:06)
[2021-03-05] MEDS: Enoxaparin 30 MG/0.3 ML Syringe SC (09:07)
[2021-03-05] MEDS: diazePAM 5 MG Tablet PO ×2 (09:11→22:24)
--- NOTE | 2021-03-05 11:42 | PN.RENAL_ITS ---
Subjective Subjective breathing better. Rising creatinine. will need dialysis today and arrange outpt dialysis at outpt clinic [facility] Objective Data Objective Data Vital Signs: Vital Signs Temp Pulse Resp BP Pulse Ox 97.8 F 84 18 127/69 H 95 03/05/21 09:15 03/05/21 09:15 03/05/21 09:15 03/05/21 09:15 03/05/21 09:15 Oxygen Flow Rate (L/min) 2 Oxygen Delivery Method Nasal Cannula Weight: 94 kg Body Mass Index (BMI) 28.0 Intake & Output: Intake and Output for Last 24 Hours 03/03/21 03/04/21 03/05/21 23:59 23:59 23:59 Intake Total 1275 / 1475 505 / 605 210 / 210 Output Total 300 / 300 900 / 1400 1400 / 1400 Balance 975 / 1175 -395 / -795 -1190 / -1190 Lab / Micro Data Result Diagrams: 03/05/21 06:01 03/05/21 06:01 Labs: Laboratory Results - last 24 hr 03/04/21 06:43: Hep Bs Antibody Non-Reactive 03/04/21 12:09: POC Glucose 192 H 03/04/21 13:09: Sodium 131 L, Potassium 4.2, Chloride 96 L, Carbon Dioxide 23.0, Anion Gap 12, BUN 89 H, Creatinine 5.94 H, Estim Creat Clear Calc 13.43, Est GFR (MDRD) Af Amer 12 L, Est GFR (MDRD) Non-Af 10 L, BUN/Creatinine Ratio 15.0, Glucose 185 H, Calcium 7.8 L 03/04/21 16:45: POC Glucose 236 H 03/04/21 20:19: POC Glucose 298 H 03/05/21 06:01: Sodium 132 L, Potassium 4.6, Chloride 98, Carbon Dioxide 22.0, BUN 101 H*, Creatinine 6.76 H, Estim Creat Clear Calc 11.80, Est GFR (MDRD) Af Amer 11 L, Est GFR (MDRD) Non-Af 9 L, BUN/Creatinine Ratio 14.9, Glucose 121 H, Calcium 8.3 L, Phosphorus 8.2 H, Iron 29 L, TIBC 279, Iron Saturation 10.4 L, Ferritin 208, Albumin 2.7 L 03/05/21 06:01: WBC 15.5 H, RBC 3.37 L, Hgb 9.7 L, Hct 29.7 L, MCV 88.1, MCH 28.8, MCHC 32.7, RDW Std Deviation 42.0, RDW Coeff of Joana 13.1, Plt Count 219, MPV 12.5 H, Immature Gran % (Auto) 1.700 H, Neut % (Auto) 83.7 H, Lymph % (Auto) 7.1 L, [place] % (Auto) 7.3, Eos % (Auto) 0.0, Baso % (Auto) 0.2, Absolute Neuts (auto) 13.0 H, Absolute Lymphs (auto) 1.10, Nucleated RBC % 0 03/05/21 06:16: POC Glucose 119 H Micro: Microbiology 02/26/21 04:42 Nasal Secretion SARS-CoV-2 Antigen (Rapid) - Final Rhythm Strip Rhythm Strip: Sinus Tach Rate: 112 Ectopy: None Physical Exam Const alert and oriented x3 Resp Auscultation: rhonchi and wheezes Cardio regular rate and no murmurs GI non-tender and non-distended Auscultation: normoactive bowel sounds Palpation: soft Extremity no clubbing, cyanosis or edema General Extremity: AV fistula Assessment & Plan Assessment/Plan (1) Acute on chronic kidney failure: PLAN: ATN from contrast. dialysis today #3 today with 17g needles. Continue to monitor renal fxn for recovery. Arrange outpt dialysis at [facility] (2) Chronic renal failure, stage 4 (severe): PLAN: due to diabetes (3) NSTEMI (non-ST elevated myocardial infarction): PLAN: s/p PCI x4 vessels. Cardio following (4) DM type 2 (diabetes mellitus, type 2): (5) Anemia: PLAN: iv iron load on dialysis. (6) Hyperphosphatemia: PLAN: add binders
--- NOTE | 2021-03-05 11:44 | PN.HOSP_ITS ---
Subjective Subjective Feeling better than when he came into the hospital. No issues overnight. Objective Data Objective Data Vital Signs: Vital Signs Temp Pulse Resp BP Pulse Ox 97.8 F 84 18 127/69 H 95 03/05/21 09:15 03/05/21 09:15 03/05/21 09:15 03/05/21 09:15 03/05/21 09:15 Oxygen Flow Rate (L/min) 2 Oxygen Delivery Method Nasal Cannula Weight: 207 lb 3.752 oz Body Mass Index (BMI) 28.0 Intake & Output: Intake and Output for Last 24 Hours 03/04/21 03/05/21 03/06/21 03:59 03:59 03:59 Intake Total 1025 / 1025 405 / 405 110 / 110 Output Total 300 / 300 1400 / 1400 900 / 900 Balance 725 / 725 -995 / -995 -790 / -790 Lab / Micro Data Result Diagrams: 03/05/21 06:01 03/05/21 06:01 Labs: Laboratory Results - last 24 hr 03/04/21 06:43: Hep Bs Antibody Non-Reactive 03/04/21 12:09: POC Glucose 192 H 03/04/21 13:09: Sodium 131 L, Potassium 4.2, Chloride 96 L, Carbon Dioxide 23.0, Anion Gap 12, BUN 89 H, Creatinine 5.94 H, Estim Creat Clear Calc 13.43, Est GFR (MDRD) Af Amer 12 L, Est GFR (MDRD) Non-Af 10 L, BUN/Creatinine Ratio 15.0, Glucose 185 H, Calcium 7.8 L 03/04/21 16:45: POC Glucose 236 H 03/04/21 20:19: POC Glucose 298 H 03/05/21 06:01: Sodium 132 L, Potassium 4.6, Chloride 98, Carbon Dioxide 22.0, BUN 101 H*, Creatinine 6.76 H, Estim Creat Clear Calc 11.80, Est GFR (MDRD) Af Amer 11 L, Est GFR (MDRD) Non-Af 9 L, BUN/Creatinine Ratio 14.9, Glucose 121 H, Calcium 8.3 L, Phosphorus 8.2 H, Iron 29 L, TIBC 279, Iron Saturation 10.4 L, Ferritin 208, Albumin 2.7 L 03/05/21 06:01: WBC 15.5 H, RBC 3.37 L, Hgb 9.7 L, Hct 29.7 L, MCV 88.1, MCH 28.8, MCHC 32.7, RDW Std Deviation 42.0, RDW Coeff of Joana 13.1, Plt Count 219, MPV 12.5 H, Immature Gran % (Auto) 1.700 H, Neut % (Auto) 83.7 H, Lymph % (Auto) 7.1 L, Branch % (Auto) 7.3, Eos % (Auto) 0.0, Baso % (Auto) 0.2, Absolute Neuts (auto) 13.0 H, Absolute Lymphs (auto) 1.10, Nucleated RBC % 0 03/05/21 06:16: POC Glucose 119 H Micro: Microbiology 02/26/21 04:42 Nasal Secretion SARS-CoV-2 Antigen (Rapid) - Final Rhythm Strip Rhythm Strip: Sinus Tach Rate: 112 Ectopy: None Physical Exam Const alert, oriented x3 and no apparent distress General Appearance: cooperative HEENT normocephalic and moist oral mucous membranes Eyes PERRL, EOMs intact bilaterally and conjunctivae normal Neck supple and no JVD Resp normal respiratory effort, no retractions and no use of accessory muscles Auscultation: wheezes and diminished lung sounds; Negative for crackles, rales or rhonchi Cardio regular rate, regular rhythm, S1 normal heart sound, S2 normal heart sound and no murmurs GI soft to palpation, non-tender and non-distended; Negative for hepatosplenomegaly Extremity no clubbing, cyanosis or edema Skin no rashes or lesions noted Neuro no focal motor deficits and no sensory deficits noted Psych affect normal Appearance: appropriate Assessment & Plan Assessment/Plan (1) COPD (chronic obstructive pulmonary disease): (2) Elevated troponin: (3) Hyperkalemia: PLAN: #Acute on chronic COPD exacerbation * Improvinig. on 4L of oxygen by nasal canula today. patient wheezing today. * on IV levaquin q48 hourly. * breathing treatment with bronchodilators. * titrate oxygen to maintain sats >90% * He states he does not wear any oxygen at home however nursing reports that he is supposed to be on oxygen therefore when he is ready for discharge we will do an ambulatory pulse ox and clarify how much of the home oxygen requirement he truly needs. #Nonstemi/A. fib/HTN/HLD * on aspirin, plavix and statin. * s/p cardiac cath which showed diffuse multivessel disease and he had multive ssel angioplasty successfully * Cardiology on board * on aspirin and Plavix as well as statin * Continue with amiodarone and metoprolol #NICK on CKD stage IV * he appears to be in fluid overload by 6.8L, which is likely contributing to his worsening shortness of breath and wheezing. * has had 2 sessions of dialysis so far * didnt have fluid taken off during dialysis yesterday * Appreciate nephrology's assistance, will continue with dialysis today he may need to take some fluid off of him. Will have him set up for outpatient dialysis #Nonanion gap metabolic acidosis-resolved #Type 2 diabetes mellitus: Lantus 30 units twice daily. Insulin sliding scale. Accu-Cheks AC at bedtime. * Will make adjustments as necessary #Depression: on escitalopram DVT: lovenox Charges/Coding Visit Charges Inpatient E&M: 07189 Subs Hosp L2
[2021-03-05] MEDS: Umeclidinium Brm/Vilanterol 62.5-25 mcg Inh 1 PUFF INHALATION (12:44)
[2021-03-05] MEDS: SEVELAMER CARBONATE 800 MG TABLET 1600 MG PO ×2 (12:46→18:57)
[2021-03-05 13:01] LABS: Bedside Glucose 280 mg/dL (70-110)
[2021-03-05 13:03] LABS: Absolute Neutrophil Count 13.3 X10^3/uL (2.0-7.7); Basophil# 0.02 X10^3/uL; Basophil% 0.1 % (0-1); Eosinophil# 0.01 X10^3/uL; Eosinophils% 0.1 % (0-5); Hematocrit 27.9 % (40-54); Hemoglobin 9.4 g/dL (13.0-16.5); Lymphocyte % 2.7 % (19-41); Mean Corp Hgb Conc 33.7 g/dL (32-36); Mean Corpuscular Hgb 29.7 pg (27.0-32.0); Mean Corpuscular Volume 88.3 fL (80-94); Mean Platelet Vol. 12.1 fl (6.2-12.0); Monocyte# 0.89 X10^3/uL; NRBC Flagged by Analyzer 0 % (0-5); Neutrophil # 13.28 X10^3/uL (2.7-7.7); Neutrophil % 89.7 % (47-70); POSITIVE DIFFERENTIAL YES; Platelet Count 194 K/mm3 (150-450); RBC Distribution Width CV 13.3 % (11.6-14.6); RBC Distribution Width SD 42.6 fl (35.1-43.9); Red Blood Count 3.16 M/mm3 (4.6-6.2); White Blood Count 14.8 K/mm3 (4.4-11.0)
[2021-03-05 13:06] LABS: Differential Indicated SCAN CRITERIA MET
--- NOTE | 2021-03-05 14:15 | CASEMGMT ---
DEVEN SAAVEDRA updated by solid waste engineer Dr. Magana that patient will need outpatient HD at [facility]. DEVEN SAAVEDRA sent referral to [facility] and awaiting confirmation. DEVEN SAAVEDRA updated patient. CM will continue to follow this patient and plan for a safe discharge.
--- NOTE | 2021-03-05 17:24 | DIALYSIS ---
HD x 3.5 hours complete. Tolerated tx well. Ran on 2k bath. No fluid removed. Used left arm access. [place] removed post tx and pressure applied x 10 minutes. Hemostasis achieved. Fresh gauze and tape applied. Report was given to DEVEN Weiner.
[2021-03-05 18:56] LABS: Bedside Glucose 119 mg/dL (70-110)
[2021-03-05] MEDS: Atorvastatin Calcium 20 MG Tablet PO (21:58)
[2021-03-05] MEDS: Cilostazol 50 MG Tablet 100 MG PO (21:58)
[2021-03-05 22:11] LABS: Bedside Glucose 189 mg/dL (70-110)
[2021-03-06] VITALS (10 sets, daily range): BP systolic 125–143; BP diastolic 62–73; PULSE 82–95; RESP 18–20; TEMP 36.6–36.7; O2SAT 87–97
[2021-03-06] MEDS: Ipratropium/Albuterol Sulfate 3 ML AMPUL.NEB INHALATION ×2 (01:33→12:35)
[2021-03-06] MEDS: Levothyroxine 88 MCG Tablet PO (05:34)
[2021-03-06] MEDS: diazePAM 5 MG Tablet PO (05:34)
[2021-03-06 06:51] LABS: Anion Gap 9 (5-15); BUN 62 mg/dL (7-18); BUN/Creat Ratio 13.5 RATIO (10-20); Calcium,Total 7.6 mg/dL (8.5-10.1); Chloride 100 mmol/L (98-107); EST Glomerular Filtration Rate 14 mL/min (>60); Est Glom Filt Rate - Afr Amer 17 mL/min (>60); Estimated Creatinine Clearance 17.34 ml/min; Glucose 76 mg/dL (74-106); Potassium 3.8 mmol/L (3.5-5.1); Sodium Level 137 mmol/L (136-145)
[2021-03-06] MEDS: predniSONE 20 MG Tablet 40 MG PO (08:20)
[2021-03-06] MEDS: SEVELAMER CARBONATE 800 MG TABLET 1600 MG PO ×2 (08:20→12:52)
[2021-03-06] MEDS: Pantoprazole Sodium 40 MG Tablet PO (08:21)
[2021-03-06] MEDS: Escitalopram Oxalate 20 MG Tablet PO (08:21)
[2021-03-06] MEDS: Amiodarone 200 MG Tablet PO (08:21)
[2021-03-06] MEDS: Clopidogrel Bisulfate 75 MG Tablet PO (08:21)
[2021-03-06] MEDS: Aspirin E.C. 81 MG Tablet PO (08:21)
[2021-03-06] MEDS: Isosorbide Mononitrate 30 MG Tablet PO (08:21)
[2021-03-06] MEDS: Sodium Bicarbonate 650 MG Tablet PO ×2 (08:22→12:52)
[2021-03-06] MEDS: Metoprolol(XL)Succ 50 MG Tablet PO (08:22)
[2021-03-06] MEDS: Finasteride 5 MG Tablet PO (08:22)
[2021-03-06] MEDS: Cholecalciferol (VIT D3) 25 MCG TABLET (1,000 UNITS) 50 MCG PO (08:22)
[2021-03-06] MEDS: Enoxaparin 30 MG/0.3 ML Syringe SC (08:22)
[2021-03-06] MEDS: 0.9% Saline Lock 10 ML Syringe IV (08:23)
[2021-03-06] MEDS: Ferrous Sulfate 325 MG Tablet PO (08:23)
[2021-03-06] MEDS: Allopurinol 300 MG Tablet PO (08:23)
[2021-03-06 08:35] LABS: Bedside Glucose 42 mg/dL (70-110)
[2021-03-06 08:35] LABS: Bedside Glucose 74 mg/dL (70-110)
[2021-03-06 10:10] LABS: Bedside Glucose 166 mg/dL (70-110)
--- NOTE | 2021-03-06 10:20 | PN.HOSP_ITS ---
Subjective Subjective Doing well, needs 4 L of oxygen to maintain his oxygen saturations with ambulation. He is tolerating dialysis and currently discharge from the hospital is dependent on insurance approval for his dialysis Objective Data Objective Data Vital Signs: Vital Signs Temp Pulse Resp BP Pulse Ox 98.0 F 94 18 143/62 H 97 03/06/21 08:15 03/06/21 08:22 03/06/21 08:15 03/06/21 08:15 03/06/21 08:15 Oxygen Flow Rate (L/min) [ 4 AMBULATING with Oxygen #2] Oxygen Flow Rate (L/min) [ 3 AMBULATING with Oxygen #1] Oxygen Flow Rate (L/min) 2 Oxygen Delivery Method Nasal Cannula Weight: 207 lb 3.752 oz Body Mass Index (BMI) 28.0 Intake & Output: Intake and Output for Last 24 Hours 03/05/21 03/06/21 03/07/21 03:59 03:59 03:59 Intake Total 405 / 405 715 / 715 300 / 300 Output Total 1400 / 1400 1350 / 1350 650 / 650 Balance -995 / -995 -635 / -635 -350 / -350 Lab / Micro Data Result Diagrams: 03/05/21 12:45 03/06/21 05:25 Labs: Laboratory Results - last 24 hr 03/05/21 12:45: WBC 14.8 H, RBC 3.16 L, Hgb 9.4 L, Hct 27.9 L, MCV 88.3, MCH 29.7, MCHC 33.7, RDW Std Deviation 42.6, RDW Coeff of Joana 13.3, Plt Count 194, MPV 12.1 H, Immature Gran % (Auto) 1.400 H, Neut % (Auto) 89.7 H, Lymph % (Auto) 2.7 L, Campbell % (Auto) 6.0, Eos % (Auto) 0.1, Baso % (Auto) 0.1, Absolute Neuts (auto) 13.3 H, Absolute Lymphs (auto) 0.40 L, Nucleated RBC % 0, Differential Comment COMMENT 03/05/21 12:52: POC Glucose 280 H 03/05/21 18:53: POC Glucose 119 H 03/05/21 22:02: POC Glucose 189 H 03/06/21 05:25: Sodium 137, Potassium 3.8, Chloride 100, Carbon Dioxide 28.0, Anion Gap 9, BUN 62 H, Creatinine 4.60 H, Estim Creat Clear Calc 17.34, Est GFR (MDRD) Af Amer 17 L, Est GFR (MDRD) Non-Af 14 L, BUN/Creatinine Ratio 13.5, Glucose 76, Calcium 7.6 L 03/06/21 08:11: POC Glucose 42 L* 03/06/21 08:32: POC Glucose 74 03/06/21 09:46: POC Glucose 166 H Micro: Microbiology 02/26/21 04:42 Nasal Secretion SARS-CoV-2 Antigen (Rapid) - Final Rhythm Strip Rhythm Strip: Sinus Tach Rate: 112 Ectopy: None Physical Exam Const alert, oriented x3 and no apparent distress General Appearance: cooperative HEENT normocephalic and moist oral mucous membranes Eyes PERRL, EOMs intact bilaterally and conjunctivae normal Neck supple and no JVD Resp normal respiratory effort, no retractions and no use of accessory muscles Auscultation: wheezes and diminished lung sounds; Negative for crackles, rales or rhonchi Cardio regular rate, regular rhythm, S1 normal heart sound, S2 normal heart sound and no murmurs GI soft to palpation, non-tender and non-distended; Negative for hepatosplenomegaly Extremity no clubbing, cyanosis or edema Skin no rashes or lesions noted Neuro no focal motor deficits and no sensory deficits noted Psych affect normal Appearance: appropriate Assessment & Plan Assessment/Plan (1) COPD (chronic obstructive pulmonary disease): (2) Elevated troponin: (3) Hyperkalemia: PLAN: #Acute on chronic COPD exacerbation * Improvinig. on 4L of oxygen by nasal canula today. patient wheezing today. * Rocephin and azithromycin * breathing treatment with bronchodilators. * titrate oxygen to maintain sats >90% * He states he does not wear any oxygen at home however nursing reports that he is supposed to be on oxygen therefore when he is ready for discharge we will do an ambulatory pulse ox and clarify how much of the home oxygen requirement he truly needs. * 03/06/2021: Needs 4 L of oxygen with ambulation and will plan on slow prednisone taper on discharge #Nonstemi/A. fib/HTN/HLD * on aspirin, plavix and statin. * s/p cardiac cath which showed diffuse multivessel disease and he had multivessel angioplasty successfully * Cardiology on board * on aspirin and Plavix as well as statin * Continue with amiodarone and metoprolol #NICK on CKD stage IV * he appears to be in fluid overload by 6.8L, which is likely contributing to his worsening shortness of breath and wheezing. * has had 2 sessions of dialysis so far * didnt have fluid taken off during dialysis yesterday * Appreciate nephrology's assistance, will continue with dialysis today he may need to take some fluid off of him. Will have him set up for outpatient dialysis * 03/06/2021: He will need dialysis Fridays going forward and we are attempting to set that up, he is stable for discharge however insurance has not approved his dialysis yet #Nonanion gap metabolic acidosis-resolved #Type 2 diabetes mellitus: Lantus 30 units twice daily. Insulin sliding scale. Accu-Cheks AC at bedtime. * Will make adjustments as necessary #Depression: on escitalopram DVT: lovenox Charges/Coding Visit Charges Inpatient E&M: 38136 Subs Hosp L2
--- NOTE | 2021-03-06 10:43 | CASEMGMT ---
Social Work SW met w/pt in room, as dispatcher street department had mentioned that pt was scammed out of some money. She stated [employer] has helped him, but she is concerned about how he will get back and forth to dialysis. SW inquired w/pt about transportation back and forth to dialysis. Pt states he can either drive himself or his sister can take him. SW gave pt information on [employer], explained that this is another agency that may be able to help financially. Pt states understanding, took the information. Pt states he does already use a food pantry. No further social service needs anticipated at this time. BRENT Hernandez
[2021-03-06 11:08] LABS: Hepatitis B Core Ab Total NEGATIVE
--- NOTE | 2021-03-06 11:12 | CASEMGMT ---
Addendum entered by Alley Dwyer 03/06/21 14:47: Pt provided w/[employer] schedule letter. He denies having any questions or further discharge needs. Addendum entered by Alley Dwyer 03/06/21 12:25: Call received from Pedro @ [facility] Admissions. They are able to accept pt. Confirmed chair time is MWF @ 12:30 PM. Pt to arrive @ 12:00 PM on day. Pt scheduled to have 1st OP HD @ [facility] in [place] tomorrow 03/07/21. Pt made aware. Per Pedro, she will fax schedule letter to this RN KERI and will provide to pt when available. Per Pedro, they recommend pt have someone drive him to his 1st OP HD appt, as he most likely will be tired after treatment. Pt made aware of same and states his sister will be able to take him. Portable O2 tank taken from [employer] supply @ [facility] and given to pt. O2 script faxed to [employer]. TC to Lucretia and she was made aware tank taken from supply room. Pt denies having any further discharge planning needs/questions/concerns and thanked DEVEN PATHAK RN, CM Addendum entered by Alley Dwyer 03/06/21 11:41: Home O2 testing has been completed--pt qualifies for O2 @ 2l/m @ rest and 4 l/m w/exertion. RN KERI to room to discuss discharge planning w/pt. Introduced self and role. Pt made aware he qualifies for Home O2. Pt made aware and he states would like to get it through [employer], now that they are in-network w/his insurance. Discussed Home O2 set up process w/pt and questions answered. He was made aware he is to call [employer] @ d/c to notify them he is discharging so they can meet him @ his home for additional O2 delivery. Will obtain script and fax to [employer] when available. Original Note: DEVEN SAAVEDRA NOTE: TC to [employer] and spoke w/Rowan. She states financials have been approved. They are awaiting Hep B core total AB result before they can acceptance of pt will be approved. Hep B core AB results faxed to [email or web address] at this time. Shirley PATHAK RN, CM
[2021-03-06 11:35] LABS: Bedside Glucose 180 mg/dL (70-110)
[2021-03-06] MEDS: Insulin Lispro 100 UNIT/ML INSULN.PEN SC ×2 (12:50→12:51)
[2021-03-06] MEDS: Umeclidinium Brm/Vilanterol 62.5-25 mcg Inh 1 PUFF INHALATION (12:52)
--- NOTE | 2021-03-06 13:03 | PCM.DC ---
Discharge Instructions Diet Discharge Diet: Low fat / Low cholesterol and Renal Diet Activity Discharge Activity: Return to Normal Activity Dressing / Incision Call your doctor if you observe: Fever of 101 or Higher, Shortness of breath, Dizziness, Fainting spells, Swelling in the ankles, Chest pain and Increased palpitations (irregular heartbeat) Follow Up Care Test Results: Test results from this visit will be discussed in further detail at your follow-up appointment, if applicable. Discharge Plan Admission Admit Date/Time: 02/26/21 10:53 Attending Provider: Zoltan Bhandari Primary Care Provider: Jonathan Baptiste Consulting Providers: Daysi Magana Discharge Orders/Prescriptions Prescriptions: New prednisone 10 mg Tablet 30 mg PO BREAKFAST Qty: 30 RF: 0 sevelamer carbonate 800 mg Tablet 1,600 mg PO TIDCM Qty: 90 RF: 0 Continued cholecalciferol (vitamin D3) 50 mcg (2,000 unit) capsule 2,000 mcg PO DAILY Qty: 90 RF: 0 rosuvastatin 10 mg tablet 10 mg PO DAILY Qty: 90 RF: 0 loperamide 2 mg capsule 2 mg PO Q4H PRN PRN (Reason: Diarrhea) RF: 0 ipratropium-albuterol 0.5 mg-3 mg(2.5 mg base)/3 mL solution for nebulization 3 ml INHALATION Q4H PRN (Reason: shortness of breath or wheezing) RF: 0 escitalopram oxalate [Lexapro] 20 mg tablet 20 mg PO DAILY RF: 0 aspirin 81 mg tablet,delayed release (DR/EC) 81 mg PO DAILY RF: 0 nitroglycerin 0.4 MG tablet 0.4 mg SUBLINGUAL Q5M PRN (Reason: Chest Pain) RF: 0 oxycodone 5 MG tablet 5 mg PO BID PRN PRN (Reason: Pain) RF: 0 allopurinol 300 MG tablet 300 mg PO DAILY RF: 0 finasteride 5 MG tablet 5 mg PO DAILY RF: 0 isosorbide mononitrate 30 MG tablet 30 mg PO DAILY RF: 0 metoprolol succinate 50 MG tablet 50 mg PO DAILY RF: 0 cilostazol 100 mg tablet 100 mg PO QHS RF: 0 albuterol sulfate 1 INHALER inhaler 1 - 2 puff inhalation Q4H PRN PRN (Reason: Wheezing) RF: 0 diazepam 5 MG tablet 5 mg PO BID PRN (Reason: anxiety) RF: 0 clopidogrel 75 MG tablet 75 mg PO DAILY RF: 0 ferrous sulfate 325 mg (65 mg iron) tablet 325 mg PO DAILY RF: 0 levothyroxine 88 MCG tablet 88 mcg PO DAILY RF: 0 pantoprazole 40 mg Tablet,Delayed Release (Dr/Ec) 40 mg PO DAILY RF: 0 Tresiba U-100 Insulin 100 unit/mL Solution 30 unit SUBCUT BID RF: 0 Anoro Ellipta 62.5-25 mcg/actuation blister with device 1 inh inhalation Q24H RF: 0 sodium bicarbonate 650 mg tablet 650 mg PO 4X/DAY RF: 0 insulin aspart U-100 [Novolog Flexpen U-100 Insulin] 100 UNITS/ML insulin pen 5 units subcut TIDCM RF: 0 amiodarone 200 mg tablet 200 mg PO DAILY Qty: 90 RF: 3 sodium polystyrene sulfonate Powder 15 g PO DIRECTED Qty: 45 RF: 0 Referrals / Follow Up: Daysi Magana DO [STAFF PHYSICIAN] - Within 1 Month Jonathan Baptiste DO [Primary Care Provider] - Within 1 Week Disposition Disposition (needs filled in before D/C Order can be placed): Home, Self Care
--- NOTE | 2021-03-06 13:10 | DS.PCM_ITS ---
Providers Date of Admission: 02/26/21 Primary Care Physician: Dr. Jonathan Baptiste, DO Consultations 02/27/21 00:17 Consult: Nephrology Routine Consulting Provider: Daysi Magana Reason for Consult: kidney failure/dialysis EMERGENT Consult: No Notified: Yes Date Notified: 02/27/21 Time Notified: 10:00 Method of Notification: saw pt on floor 02/27/21 07:23 Consult: Nephrology Routine Consulting Provider: Daysi Magana Reason for Consult: CKD IV EMERGENT Consult: No Notified: Yes Date Notified: 02/27/21 Time Notified: 07:23 Method of Notification: Text Reason For Visit: COPD EXACERBATION Diagnosis Discharge Diagnosis (1) COPD (chronic obstructive pulmonary disease): Status: Deleted Code(s): J44.9 - Chronic obstructive pulmonary disease, unspecified (2) Elevated troponin: Status: Inactive Code(s): R77.8 - Other specified abnormalities of plasma proteins (3) Hyperkalemia: Status: Acute Code(s): E87.5 - Hyperkalemia Medications at Discharge Home Medications nitroglycerin 0.4 mg SUBLINGUAL Q5M PRN 05/14/17 oxycodone 5 mg PO BID PRN PRN 05/14/17 allopurinol 300 mg PO DAILY 09/15/17 finasteride 5 mg PO DAILY 09/15/17 isosorbide mononitrate 30 mg PO DAILY 09/15/17 metoprolol succinate 50 mg PO DAILY 09/15/17 albuterol sulfate 1 - 2 puff INHALATION Q4H PRN PRN 05/12/18 diazepam 5 mg PO BID PRN 05/12/18 clopidogrel 75 mg PO DAILY 08/04/18 cholecalciferol (vitamin D3) 50 mcg (2,000 unit) capsule 2,000 mcg PO DAILY #90 cap 02/19/19 cilostazol 100 mg tablet 100 mg PO QHS tab 09/30/19 escitalopram oxalate 20 mg tablet 20 mg PO DAILY 09/30/19 ferrous sulfate 325 mg (65 mg iron) tablet 325 mg PO DAILY tab 09/30/19 ipratropium 0.5 mg-albuterol 3 mg (2.5 mg base)/3 mL nebulization soln 3 ml INHALATION Q4H PRN ml 09/30/19 loperamide 2 mg capsule 2 mg PO Q4H PRN PRN cap 09/30/19 rosuvastatin 10 mg tablet 10 mg PO DAILY #90 tab 09/30/19 levothyroxine 88 mcg PO DAILY 12/07/19 Tresiba U-100 Insulin 30 unit SUBCUT BID 08/26/20 pantoprazole 40 mg PO DAILY 08/26/20 Anoro Ellipta 1 inh INHALATION Q24H 08/31/20 amiodarone 200 mg tablet 200 mg PO DAILY #90 tab 12/04/20 aspirin 81 mg tablet,delayed release 81 mg PO DAILY 12/11/20 insulin aspart U-100 [Novolog Flexpen U-100 Insulin] 5 units SUBCUT TIDCM 12/25/20 sodium bicarbonate 650 mg PO 4X/DAY 12/25/20 sodium polystyrene sulfonate 15 g PO DIRECTED #45 g 02/07/21 prednisone 30 mg PO BREAKFAST #30 tab 03/06/21 sevelamer carbonate 1,600 mg PO TIDCM #90 tab 03/06/21 Hospital Course Operations None Procedures 2-D Echocardiogram and Cardiac catheterization Summary of Care Provided Minutes Spent on Discharge: 45 Hospital Course: Per HPI: BARI KELLY, is a 65 M with an extensive past medical history as outlined which includes COPD who presents via the ED on 02/26/2021 with a complaint of worsening shortness of breath with associated wheezing which had been going on for about a day. Patient denied any fever or chills and admitted to a cough which was nonproductive. He denied any chest pain no palpitations or dizziness. Shortness of breath Gradually worsened to the point where he could not complete sentences on account of shortness of breath. He has a past medical history of smoking and states he stopped smoking a few weeks ago. Vitals at time of admission with temperature of 96.9 Fahrenheit with pulse rate of 100 respiratory rate of 24 and he was saturating at 99% on 3 L of oxygen. CBC showed hemoglobin of 11.1 with WBC of 12.4 and platelets of 300. Chemistry showed potassium of 5.6 with bicarb of 20 and creatinine of 3.58. Initial high- sensitivity troponin was 206. BNP is 384. Chest x-ray showed patchy bilateral pulmonary infiltrates likely indicating pneumonia. Covid test done was negative. He has been admitted to be managed for acute COPD exacerbation with superimposed pneumonia and non-STEMI as well as hyperkalemia. Hospital Course: #Acute on chronic COPD exacerbation Improvinig. on 4L of oxygen by nasal canula today. patient wheezing today. Rocephin and azithromycin breathing treatment with bronchodilators. titrate oxygen to maintain sats >90% He states he does not wear any oxygen at home however nursing reports that he is supposed to be on oxygen therefore when he is ready for discharge we will do an ambulatory pulse ox and clarify how much of the home oxygen requirement he truly needs. 03/06/2021: Needs 4 L of oxygen with ambulation and will plan on slow prednisone taper today on discharge. I did discuss with him the plan for discharge and expressed understanding the risk benefits going home and would like to go home today. He will need to go to dialysis on Mondays, Wednesdays, Fridays. 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 #Nonstemi/A. fib/HTN/HLD on aspirin, plavix and statin. s/p cardiac cath which showed diffuse multivessel disease and he had multivessel angioplasty successfully Cardiology on board on aspirin and Plavix as well as statin Continue with amiodarone and metoprolol 03/06/2021: EF on his echo was 55% with a right ventricular systolic pressure 41 mmHg he did have some segmental dysfunction therefore he underwent a cardiac cath and had successful multivessel PCI. He has had previous coronary artery stenting. Continue with his home medication. #NICK on CKD stage IV he appears to be in fluid overload by 6.8L, which is likely contributing to his worsening shortness of breath and wheezing. has had 2 sessions of dialysis so far didnt have fluid taken off during dialysis yesterday Appreciate nephrology's assistance, will continue with dialysis today he may need to take some fluid off of him. Will have him set up for outpatient dialysis 03/06/2021: He will undergo dialysis on MWF. Recommend following up with nephrology within the next month. 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 Insulin sliding scale. Accu-Cheks AC at bedtime. Will make adjustments as necessary #Depression: on escitalopram Weight / BMI Weight Weight: 207 lb 3.752 oz Body Mass Index (BMI) 28.0 ABG / Lab / Microbiology Data Result Diagrams: 03/05/21 12:45 03/06/21 05:25 Laboratory: Laboratory Results - last 24 hr 03/04/21 06:43: Hep B Core Total Ab NEGATIVE 03/05/21 12:45: Differential Comment COMMENT 03/05/21 18:53: POC Glucose 119 H 03/05/21 22:02: POC Glucose 189 H 03/06/21 05:25: Sodium 137, Potassium 3.8, Chloride 100, Carbon Dioxide 28.0, Anion Gap 9, BUN 62 H, Creatinine 4.60 H, Estim Creat Clear Calc 17.34, Est GFR (MDRD) Af Amer 17 L, Est GFR (MDRD) Non-Af 14 L, BUN/Creatinine Ratio 13.5, Glucose 76, Calcium 7.6 L 03/06/21 08:11: POC Glucose 42 L* 03/06/21 08:32: POC Glucose 74 03/06/21 09:46: POC Glucose 166 H 03/06/21 11:15: POC Glucose 180 H Microbiology: Microbiology 02/26/21 04:42 Nasal Secretion SARS-CoV-2 Antigen (Rapid) - Final D/C Instructions Discharge Diet: Low fat / Low cholesterol and Renal Diet Call your doctor if you observe: Fever of 101 or Higher, Shortness of breath, Dizziness, Fainting spells, Swelling in the ankles, Chest pain and Increased palpitations (irregular heartbeat) Meaningful Use Info Meaningful Use Diagnoses (Choose all that apply): None applicable Discharge Plan Admission Admit Date/Time: 02/26/21 10:53 Attending Provider: Zoltan Bhandari Primary Care Provider: Jonathan Baptiste Consulting Providers: Daysi Magana Discharge Orders/Prescriptions Prescriptions: New prednisone 10 mg Tablet 30 mg PO BREAKFAST Qty: 30 RF: 0 sevelamer carbonate 800 mg Tablet 1,600 mg PO TIDCM Qty: 90 RF: 0 Continued cholecalciferol (vitamin D3) 50 mcg (2,000 unit) capsule 2,000 mcg PO DAILY Qty: 90 RF: 0 rosuvastatin 10 mg tablet 10 mg PO DAILY Qty: 90 RF: 0 loperamide 2 mg capsule 2 mg PO Q4H PRN PRN (Reason: Diarrhea) RF: 0 ipratropium-albuterol 0.5 mg-3 mg(2.5 mg base)/3 mL solution for nebulization 3 ml INHALATION Q4H PRN (Reason: shortness of breath or wheezing) RF: 0 escitalopram oxalate [Lexapro] 20 mg tablet 20 mg PO DAILY RF: 0 aspirin 81 mg tablet,delayed release (DR/EC) 81 mg PO DAILY RF: 0 nitroglycerin 0.4 MG tablet 0.4 mg SUBLINGUAL Q5M PRN (Reason: Chest Pain) RF: 0 oxycodone 5 MG tablet 5 mg PO BID PRN PRN (Reason: Pain) RF: 0 allopurinol 300 MG tablet 300 mg PO DAILY RF: 0 finasteride 5 MG tablet 5 mg PO DAILY RF: 0 isosorbide mononitrate 30 MG tablet 30 mg PO DAILY RF: 0 metoprolol succinate 50 MG tablet 50 mg PO DAILY RF: 0 cilostazol 100 mg tablet 100 mg PO QHS RF: 0 albuterol sulfate 1 INHALER inhaler 1 - 2 puff inhalation Q4H PRN PRN (Reason: Wheezing) RF: 0 diazepam 5 MG tablet 5 mg PO BID PRN (Reason: anxiety) RF: 0 clopidogrel 75 MG tablet 75 mg PO DAILY RF: 0 ferrous sulfate 325 mg (65 mg iron) tablet 325 mg PO DAILY RF: 0 levothyroxine 88 MCG tablet 88 mcg PO DAILY RF: 0 pantoprazole 40 mg Tablet,Delayed Release (Dr/Ec) 40 mg PO DAILY RF: 0 Tresiba U-100 Insulin 100 unit/mL Solution 30 unit SUBCUT BID RF: 0 Anoro Ellipta 62.5-25 mcg/actuation blister with device 1 inh inhalation Q24H RF: 0 sodium bicarbonate 650 mg tablet 650 mg PO 4X/DAY RF: 0 insulin aspart U-100 [Novolog Flexpen U-100 Insulin] 100 UNITS/ML insulin pen 5 units subcut TIDCM RF: 0 amiodarone 200 mg tablet 200 mg PO DAILY Qty: 90 RF: 3 sodium polystyrene sulfonate Powder 15 g PO DIRECTED Qty: 45 RF: 0 Referrals / Follow Up: Daysi Magana DO [STAFF PHYSICIAN] - Within 1 Month Jonathan Baptiste DO [Primary Care Provider] - Within 1 Week Disposition Disposition (needs filled in before D/C Order can be placed): Home, Self Care Charges/Coding Visit Charges Inpatient E&M: 08192 Disch Hosp
== END 2021-03-06 15:00 | disposition home or self-care (01) | DRG 246 ==
LOC: ED 06:22 → MS2 11:03
PROVIDERS: Internal Medicine Cardiovascular Disease; Internal Medicine Nephrology; Admitting Provider Student in an Organized Health Care Education/Training Program; Emergency Provider Emergency Medicine; PCP Student in an Organized Health Care Education/Training Program; Visit Provider Family Medicine
DX: I21.4 Non-ST elevation (NSTEMI) myocardial infarction (principal); J15.4 Pneumonia due to other streptococci; N17.0 Acute kidney failure with tubular necrosis; J44.1 Chronic obstructive pulmonary disease with (acute) exacerbation; N18.4 Chronic kidney disease, stage 4 (severe); I50.20 Unspecified systolic (congestive) heart failure; I13.0 Hypertensive heart and chronic kidney disease with heart failure and stage 1 through stage 4 chronic kidney disease, or unspecified chronic kidney disease; J44.0 Chronic obstructive pulmonary disease with (acute) lower respiratory infection; J96.11 Chronic respiratory failure with hypoxia; E87.5 Hyperkalemia; F17.211 Nicotine dependence, cigarettes, in remission; I25.10 Atherosclerotic heart disease of native coronary artery without angina pectoris; E11.22 Type 2 diabetes mellitus with diabetic chronic kidney disease; I48.0 Paroxysmal atrial fibrillation; D63.1 Anemia in chronic kidney disease; F41.1 Generalized anxiety disorder; E78.5 Hyperlipidemia, unspecified; F32.A Depression, unspecified; K21.9 Gastro-esophageal reflux disease without esophagitis; G47.33 Obstructive sleep apnea (adult) (pediatric); D50.9 Iron deficiency anemia, unspecified; E11.51 Type 2 diabetes mellitus with diabetic peripheral angiopathy without gangrene; N40.1 Benign prostatic hyperplasia with lower urinary tract symptoms; R33.8 Other retention of urine; I25.2 Old myocardial infarction; N14.1 Nephropathy induced by other drugs, medicaments and biological substances; T50.8X5A Adverse effect of diagnostic agents, initial encounter; M10.9 Gout, unspecified; Z79.899 Other long term (current) drug therapy; Z79.02 Long term (current) use of antithrombotics/antiplatelets; Z79.4 Long term (current) use of insulin; Z79.82 Long term (current) use of aspirin; Z91.19 Patient's noncompliance with other medical treatment and regimen; Z99.81 Dependence on supplemental oxygen
CPT/HCPCS: 36415; 71045; 80048; 80053; 80069; 82728; 82962; 83540; 83550; 83880; 84484; 85025; 86704; 86706; 87340; 87426; 90937; 92928; 92929; 93005; 93306; 93454; 94640; 96367; 96375; 96413; 96417; 97162; 97166; 99152; 99153; 99285; 99406; C1725; C1874; J7030; J7040; Q9957; Q9967; A4216; C1760; C1769; C1887; C1894; C8929; C9600; C9601; G0257; J1940; J2405; J2916

== ENCOUNTER 2021-03-19 13:35 | Outpatient (CLI) | payer MEDICARE, SELFPAY ==
[2021-03-19 14:35] LABS: PTHIN 302.6 pg/mL (18.4-80.1)
[2021-03-19 14:37] LABS: Albumin, Serum 3.1 g/dL (3.2-5.0); BUN 61 mg/dL (7-18); BUN/Creat Ratio 15.8 RATIO (10-20); Calcium,Total 8.7 mg/dL (8.5-10.1); Chloride 109 mmol/L (98-107); Creatinine, Serum 3.85 mg/dL (0.70-1.30); EST Glomerular Filtration Rate 17 mL/min (>60); Est Glom Filt Rate - Afr Amer 20 mL/min (>60); Glucose 267 mg/dL (74-106); Phosphorus 2.7 mg/dL (2.5-4.9); Sodium Level 143 mmol/L (136-145)
== END 2021-03-19 23:59 | disposition short-term general hospital (02) ==
LOC: LAB 13:37
PROVIDERS: PCP Student in an Organized Health Care Education/Training Program; Visit Provider Internal Medicine Nephrology
DX: N18.4 Chronic kidney disease, stage 4 (severe) (principal)
CPT/HCPCS: 36415; 80069; 83970

== ENCOUNTER 2021-04-28 06:51 | Inpatient (IN) | payer MEDICARE, SELFPAY ==
[2021-04-28] VITALS (32 sets, daily range): BP systolic 99–210; BP diastolic 61–138; PULSE 84–106; RESP 14–37; TEMP 36.3–37.1; O2SAT 66–100; BMI 31.1; BMI 28.6
--- NOTE | 2021-04-28 06:55 | EKG12_ITS ---
Test Reason : SOB Blood Pressure : / mmHG Vent. Rate : 089 BPM Atrial Rate : 089 BPM P-R Int : 244 ms QRS Dur : 096 ms QT Int : 378 ms P-R-T Axes : 033 058 084 degrees QTc Int : 459 ms Sinus rhythm with 1st degree A-V block Nonspecific ST and T wave abnormality Abnormal ECG Confirmed by LAYO ASIF, THU ([id number]), editor city JARED MADRID ([id number]) on 05/01/2021 10:22:47 AM Referred By: SALEEM Confirmed By:THU VASQUES MD
--- NOTE | 2021-04-28 07:00 | EDS_ITS ---
HPI <Dr. Sher Vazquez MD - Last Filed: 04/28/21 22:07> History of Present Illness Chief Complaint: Shortness of Breath Informant: patient and EMS Narrative Narrative: History is somewhat limited. Patient can talk and does appear to be awake. However, it is hard to talk over BiPAP and the sound of EMS BiPAP that he came in on. EMS was called due to dyspnea. He told them that he had been having worsening shortness of breath for about 3 or 4 days. He has COPD. He is on oxygen but usually only uses it at night or if he needs it. He has been using it more for the last few days. This morning he put it on. He felt more dyspneic. I do not know if he has been coughing or bringing up sputum. I do not know if he has been having pain. I do not know any further details of his history at this point. EMS initially saw him and he was up awake alert talking to them. He was telling his dog to be quiet. They put him on BiPAP and high flow oxygen but he has gotten a less alert as he came in here. They were getting sats about 86% but trouble maintaining those. But they were also not getting a good waveform. PFSH <Dr. Sher Vazquez MD - Last Filed: 04/28/21 22:07> [facility] Home Medications albuterol sulfate 2 puff INHALATION 4X/DAY 04/28/21 [History Last Taken Unknown] allopurinol 100 mg PO DAILY 04/28/21 [History Last Taken Unknown] amiodarone 200 mg PO DAILY 04/28/21 [History Last Taken Unknown] amlodipine 5 mg PO DAILY 04/28/21 [History Last Taken Unknown] aspirin 81 mg PO DAILY 04/28/21 [History Last Taken Unknown] blood-glucose meter [[employer] Verio Flex meter] 04/28/21 [History Last Taken Unknown] cholecalciferol (vitamin D3) [Vitamin D3] 2,000 unit PO DAILY 04/28/21 [History Last Taken Unknown] clopidogrel 75 mg PO DAILY 04/28/21 [History Last Taken Unknown] diazepam 5 mg PO BID 04/28/21 [History Last Taken Unknown] escitalopram oxalate 20 mg PO DAILY 04/28/21 [History Last Taken Unknown] ferrous sulfate 325 mg PO DAILY 04/28/21 [History Last Taken Unknown] finasteride 5 mg PO DAILY 04/28/21 [History Last Taken Unknown] insulin aspart U-100 [Novolog Flexpen U-100 Insulin] 25 unit SUBCUT TID 04/28/21 [History Last Taken Unknown] insulin degludec [Tresiba FlexTouch U-100] 30 unit SUBCUT BID 04/28/21 [History Last Taken Unknown] levothyroxine 88 mcg PO DAILY 04/28/21 [History Last Taken Unknown] loperamide 2 mg PO Q4H PRN PRN 04/28/21 [History Last Taken Unknown] metoprolol succinate 50 mg PO DAILY 04/28/21 [History Last Taken Unknown] naloxone [Narcan] 4 mg INTRANASAL PRN PRN 04/28/21 [History Last Taken Unknown] oxycodone 5 mg PO BID 04/28/21 [History Last Taken Unknown] pantoprazole 40 mg PO DAILY 04/28/21 [History Last Taken Unknown] rosuvastatin 10 mg PO DAILY 04/28/21 [History Last Taken Unknown] sodium bicarbonate 650 mg PO DAILY 04/28/21 [History Last Taken Unknown] Allergy/AdvReac Type Severity Reaction Status Date / Time No Known Allergies Allergy Verified 04/28/21 07:57 Social History Smoking Status: Former smoker ROS <Dr. Sehr Vazquez MD - Last Filed: 04/28/21 22:07> ROS ED Review of Systems ROS Unobtainable: other Details: Unable to obtain due to severity of illness at this time. Respiratory/Chest Respiratory/Chest: Reports cough and dyspnea EXAM <Dr. Sher Vazquez MD - Last Filed: 04/28/21 22:07> Physical Exam Const Vital Signs: 04/28/21 06:54 04/28/21 07:04 04/28/21 07:07 Temperature 97.6 F L 98.8 F Temperature Source Temporal Temporal Pulse Rate 94 98 96 Respiratory Rate 31 H 26 H 25 H Respiratory Pattern Tachypnea Blood Pressure 210/94 H 147/74 H Blood Pressure Mean 132 98 Pulse Ox 66 93 94 Oxygen Delivery Method Bi-pap Bi-pap Oxygen Flow Rate (L/min) 15 Fraction of Inspired Oxygen (FIO2) 45 04/28/21 07:47 04/28/21 07:58 04/28/21 08:00 Temperature Temperature Source Pulse Rate 89 88 Respiratory Rate 25 H 24 H Respiratory Pattern Tachypnea Blood Pressure 166/97 H Blood Pressure Mean 120 Pulse Ox 92 93 Oxygen Delivery Method Nasal Cannula Nasal Cannula Oxygen Flow Rate (L/min) 4 4 Fraction of Inspired Oxygen (FIO2) 04/28/21 08:20 Temperature 97.5 F L Temperature Source Temporal Pulse Rate 89 Respiratory Rate 26 H Respiratory Pattern Blood Pressure 150/74 H Blood Pressure Mean 99 Pulse Ox 92 Oxygen Delivery Method Nasal Cannula Oxygen Flow Rate (L/min) 4 Fraction of Inspired Oxygen (FIO2) Positive well nourished and well developed Constitutional Narrative: Patient looks ill. Increased respiratory work. EMS BiPAP is in place. His hands are somewhat cool. But he is not cyanotic. He has good coloration of his skin and face. General Appearance ED: well developed HEENT atraumatic Eyes EOMs intact bilaterally Neck no meningeal signs and no JVD Neck Narrative: No obvious JVD but he does have a somewhat thick neck. Resp Resp Narrative: Increased respiratory effort. Cannot really hear much over the sound of BiPAP. But it does not appear as though he is moving much air either. There does appear to be a slight end expiratory wheeze. I am not able to hear rales. Auscultation: wheezes Cardio regular rhythm Cardio Narrative: Heart seems regular. Rate is about 90. GI non-tender Palpation: soft Extremity normal to inspection General Extremety ED: Negative for tenderness Neuro Neuro Narrative: When talked to the patient, he is awake. He will follow commands such as moving a specific arm or leg. He will lift his head up. He seems to be oriented. It is hard to hear him answer questions over the sound of BiPAP though. But I am not getting any focal deficit. Although he seems a little bit tired he still oriented and spontaneously awake. Skin Lesions: no lesions Rashes: no rashes <Dr. Vladislav Shahid MD - Last Filed: 04/28/21 08:42> Physical Exam Const Vital Signs: 04/28/21 06:54 04/28/21 07:04 04/28/21 07:07 Temperature 97.6 F L 98.8 F Temperature Source Temporal Temporal Pulse Rate 94 98 96 Respiratory Rate 31 H 26 H 25 H Respiratory Pattern Tachypnea Blood Pressure 210/94 H 147/74 H Blood Pressure Mean 132 98 Pulse Ox 66 93 94 Oxygen Delivery Method Bi-pap Bi-pap Oxygen Flow Rate (L/min) 15 Fraction of Inspired Oxygen (FIO2) 45 04/28/21 07:47 04/28/21 07:58 04/28/21 08:00 Temperature Temperature Source Pulse Rate 89 88 Respiratory Rate 25 H 24 H Respiratory Pattern Tachypnea Blood Pressure 166/97 H Blood Pressure Mean 120 Pulse Ox 92 93 Oxygen Delivery Method Nasal Cannula Nasal Cannula Oxygen Flow Rate (L/min) 4 4 Fraction of Inspired Oxygen (FIO2) 04/28/21 08:20 Temperature 97.5 F L Temperature Source Temporal Pulse Rate 89 Respiratory Rate 26 H Respiratory Pattern Blood Pressure 150/74 H Blood Pressure Mean 99 Pulse Ox 92 Oxygen Delivery Method Nasal Cannula Oxygen Flow Rate (L/min) 4 Fraction of Inspired Oxygen (FIO2) [facility] <Dr. Sher Vazquez MD - Last Filed: 04/28/21 22:07> [facility] Narrative Medical decision making narrative: 07: 05 Patient's recheck. He is getting much better volumes. Sats blood pressure heart rate are good. Respiratory rate is in the mid 20s. Patient states he has a history of COPD and he just uses oxygen as needed. He has needed it more the last few days. He has been coughing but no sputum production. He denies chest pain. He does not think he has had fever but he did wake up a little bit sweaty this morning. 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 He is also had partial colectomy. He also has 6 stents. He has no allergies to medications. Patient is now ANO x3 with a GCS of 15. He is showing significant improvement from arrival. On exam, his lungs do have some end expiratory wheeze. However, they seem overall a little bit more coarse and rhonchorous. I do have a BNP ordered. I will initiate antibiotic therapy also. Patient does have elevated white count. Hemoglobin shows minimal anemia. Electrolytes showed elevated potassium but it was also a partly hemolyzed. He does not have significantly peaked T waves. BNP was slightly elevated at 335. However, this level does not support the level of dyspnea that he presented with. Patient's troponin is negative at this time. Lactate is normal. Chest x-ray shows marked changes. He has what are likely postoperative pneumonectomy changes on the right. Left side has diffuse haziness that could be a component of CHF but may also be infiltrative. Patient's Covid rapid is negative. Patient is improved quite a bit here. Respiratory actually took him off of BiPAP. He is awake alert. He is satting about 93% on 4 L now. He is chewing ice cubes. This patient does have significant history. He also has signs of renal dysfunction but I do not know if this is an acute kidney injury or chronic. I do not have access to old labs. This patient will certainly need inpatient treatment. He is wheezing quite a bit more now. We are getting another treatment. Respiratory is also watching him closely. Hospitalist is on page. Lab Data Attestation: I reviewed the patient's lab results. Labs: Laboratory Results - last 24 hr 04/28/21 04/28/21 04/28/21 07:00 07:07 07:07 WBC 14.6 H RBC 4.04 L Hgb 12.2 L Hct 38.0 L MCV 94.1 H MCH 30.2 MCHC 32.1 RDW Std Deviation 51.3 H RDW Coeff of Joana 14.8 H Plt Count 259 MPV 11.8 Immature Gran % (Auto) 1.800 H Neut % (Auto) 73.2 H Lymph % (Auto) 15.4 L [place] % (Auto) 7.3 Eos % (Auto) 1.7 Baso % (Auto) 0.6 Absolute Neuts (auto) 10.7 H Absolute Lymphs (auto) 2.26 Nucleated RBC % 0 Sodium 140 Potassium 6.2 H* Chloride 112 H Carbon Dioxide 23.0 Anion Gap 5 BUN 45 H Creatinine 3.61 H Estim Creat Clear Calc 20.78 Est GFR (MDRD) Af Amer 22 L Est GFR (MDRD) Non-Af 18 L BUN/Creatinine Ratio 12.5 Glucose 305 H Lactic Acid Calcium 8.8 Troponin I High Sens 31 B-Natriuretic Peptide 335.9 H 04/28/21 07:07 WBC RBC Hgb Hct MCV MCH MCHC RDW Std Deviation RDW Coeff of Joana Plt Count MPV Immature Gran % (Auto) Neut % (Auto) Lymph % (Auto) [place] % (Auto) Eos % (Auto) Baso % (Auto) Absolute Neuts (auto) Absolute Lymphs (auto) Nucleated RBC % Sodium Potassium Chloride Carbon Dioxide Anion Gap BUN Creatinine Estim Creat Clear Calc Est GFR (MDRD) Af Amer Est GFR (MDRD) Non-Af BUN/Creatinine Ratio Glucose Lactic Acid 1.0 Calcium Troponin I High Sens B-Natriuretic Peptide ABG Data ABG results: ABG 04/28/21 08:11 Specimen Type ART Sample Site R Radial pH 7.14 L* Bicarbonate Actual 20.2 L Total CO2 22 Base Excess -9 L O2 Saturation 85 L ABG pCO2 59.8 H ABG pO2 66 L Donnie Test Positive O2 Delivery Device Cannula Liter Flow 4.0 Crit Call To/Read Back Yes Blood Gas Notified Whom dr. ramy vazquez Radiography Diagnostic Testing: Clinical Impression(s) from Imaging Studies Chest X-Ray 04/28/21 07:25 IMPRESSION: Patchy bilateral pneumonia with tiny bilateral pleural effusions. Electronically Signed: Rupert Grimaldo MD at 8:16 EST , EKG Initial EKG: Comments: EKG done for dyspnea read by me shows normal sinus rhythm with first-degree AV block and overall rate of 89. There is diffuse nonspecific ST and T wave change but no sign of acute infarct or ischemia. No ventricular ectopy. NH interval is long. QRS duration and QTc normal. No prior for comparison. <Dr. Vladislav Shahid MD - Last Filed: 04/28/21 08:42> [facility] MDM Narrative Medical decision making narrative: Patient with respiratory failure treated with aerosols and initial BiPAP and is now switched to nasal cannula O2. He was also started on antibiotics for possible pneumonia. Repeat exam at 8:40 AM the patient is doing much better. He still wheezing but he is on nasal cannula O2 satting well. His blood gas showed respiratory acidosis with CO2 retention. He is awake and alert. Have already spoken to the hospitalist. He will be admitted to the ICU. The patient is much improved from his initial presentation where he was close to needing mechanical ventilation. Lab Data Attestation: I reviewed the patient's lab results. Lab results narrative: Patient turned over to me from the initial physician that cared for the patient. Labs show an elevated white count of 14.6. H&H 12 and 38. Electrolytes show potassium of 6.2 chloride of 112 gap of 5 BUN of 45 creatinine 3.61. We do not have any old labs available for comparison but the patient told me he has stage IV kidney disease. He previously had been dialyzed in the past but he stopped doing that. His troponin is 31. His BNP is 335. Glucose of 305. Lactic acid of 1. Labs: Laboratory Results - last 24 hr 04/28/21 04/28/21 04/28/21 07:00 07:07 07:07 WBC 14.6 H RBC 4.04 L Hgb 12.2 L Hct 38.0 L MCV 94.1 H MCH 30.2 MCHC 32.1 RDW Std Deviation 51.3 H RDW Coeff of Joana 14.8 H Plt Count 259 MPV 11.8 Immature Gran % (Auto) 1.800 H Neut % (Auto) 73.2 H Lymph % (Auto) 15.4 L [place] % (Auto) 7.3 Eos % (Auto) 1.7 Baso % (Auto) 0.6 Absolute Neuts (auto) 10.7 H Absolute Lymphs (auto) 2.26 Nucleated RBC % 0 Sodium 140 Potassium 6.2 H* Chloride 112 H Carbon Dioxide 23.0 Anion Gap 5 BUN 45 H Creatinine 3.61 H Estim Creat Clear Calc 20.78 Est GFR (MDRD) Af Amer 22 L Est GFR (MDRD) Non-Af 18 L BUN/Creatinine Ratio 12.5 Glucose 305 H Lactic Acid Calcium 8.8 Troponin I High Sens 31 B-Natriuretic Peptide 335.9 H 04/28/21 07:07 WBC RBC Hgb Hct MCV MCH MCHC RDW Std Deviation RDW Coeff of Joana Plt Count MPV Immature Gran % (Auto) Neut % (Auto) Lymph % (Auto) [place] % (Auto) Eos % (Auto) Baso % (Auto) Absolute Neuts (auto) Absolute Lymphs (auto) Nucleated RBC % Sodium Potassium Chloride Carbon Dioxide Anion Gap BUN Creatinine Estim Creat Clear Calc Est GFR (MDRD) Af Amer Est GFR (MDRD) Non-Af BUN/Creatinine Ratio Glucose Lactic Acid 1.0 Calcium Troponin I High Sens B-Natriuretic Peptide ABG Data ABG results: ABG 04/28/21 08:11 Specimen Type ART Sample Site R Radial pH 7.14 L* Bicarbonate Actual 20.2 L Total CO2 22 Base Excess -9 L O2 Saturation 85 L ABG pCO2 59.8 H ABG pO2 66 L Donnie Test Positive O2 Delivery Device Cannula Liter Flow 4.0 Crit Call To/Read Back Yes Blood Gas Notified Whom dr. ramy vazquez Radiography Chest X-Ray - ED: 1 View, Read by ED Physician, Read by Radiologist, Right Infiltrate and Left Infiltrate Diagnostic Testing: Clinical Impression(s) from Imaging Studies Chest X-Ray 04/28/21 07:25 IMPRESSION: Patchy bilateral pneumonia with tiny bilateral pleural effusions. Electronically Signed: Rupert Grimaldo MD at 8:16 EST , Chest x-ray, portable, single view interpreted by myself and the radiologist shows bilateral infiltrates. A lot of chronic changes. No old x-ray available for comparison. Cannot rule out an infiltrate. Patient was started on antibiotics. Rhythm Strip Rhythm Strip: Sinus Rhythm Rate: 89 Ectopy: None EKG Initial EKG: Attestation: I personally reviewed and interpreted this EKG as follows: Interpretation: Sinus Rhythm and No Acute Injury Pattern Comments: Sinus rhythm rate 89 first-degree AV block with a NH interval 244. No acute signs of HI or ischemia. No old EKG available for comparison. Prior EKG tracings: not available for review <Dr. Sher Vazquez MD - Last Filed: 04/28/21 22:07> Critical Care Time Critical Care Time: Yes Critical care time (excluding procedures): 30-74 minutes, Including time spent: (45 minutes, multiple rechecks, repeat dosing of meds, reviewing studies and results.), Discussing w/Patient &/or Family/Manager Hematology, Discussing w /Consultants, Arranging Admission or Transfer and Performing Direct Patient Care at Bedside <Dr. Vladislav Shahid MD - Last Filed: 04/28/21 08:42> Critical Care Time Critical Care Time: Yes Critical care time (excluding procedures): 30-74 minutes, Including time spent:, Discussing w/Patient &/or Family/Manager Hematology, Discussing w/Consultants, Arranging Admission or Transfer, Performing Direct Patient Care at Bedside and - (33 min) Discharge Plan Dx/Rx/DC Orders Clinical Impression: Respiratory failure with hypoxia, COPD with exacerbation, Acute hyperkalemia, Chronic kidney disease Disposition Disposition: Acute Care Hospital [facility] Discharge Date/Time: 04/28/21 09:52
[2021-04-28] MEDS: MethylPREDNISolone 125 MG/2 ML Vial IV (07:02)
[2021-04-28] MEDS: Ipratropium/Albuterol Sulfate 3 ML AMPUL.NEB INHALATION ×4 (07:02→18:45)
[2021-04-28] MEDS: Albuterol 2.5 MG/3 ML VIAL.NEB. INHALATION ×2 (07:02→09:16)
--- NOTE | 2021-04-28 07:06 | ED.RN ---
Dr Vazquez does not want to bolus patient for the sepsis screen but is aware positive
[2021-04-28 07:21] LABS: Absolute Lymphocyte Count 2.26 X10^3/uL (0.83-4.51); Absolute Neutrophil Count 10.7 X10^3/uL (2.0-7.7); Basophil# 0.09 X10^3/uL; Basophil% 0.6 % (0-1); Eosinophil# 0.25 X10^3/uL; Eosinophils% 1.7 % (0-5); Hemoglobin 12.2 g/dL (13.0-16.5); Lymphocyte # 2.26 X10^3/ul (0.83-4.51); Lymphocyte % 15.4 % (19-41); Mean Corp Hgb Conc 32.1 g/dL (32-36); Mean Corpuscular Hgb 30.2 pg (27.0-32.0); Mean Corpuscular Volume 94.1 fL (80-94); Mean Platelet Vol. 11.8 fl (6.2-12.0); Monocyte# 1.07 X10^3/uL; Monocyte% 7.3 % (0-10); NRBC Flagged by Analyzer 0 % (0-5); Neutrophil % 73.2 % (47-70); POSITIVE COUNT YES; Platelet Count 259 K/mm3 (150-450); RBC Distribution Width CV 14.8 % (11.6-14.6); RBC Distribution Width SD 51.3 fl (35.1-43.9); Red Blood Count 4.04 M/mm3 (4.6-6.2); White Blood Count 14.6 K/mm3 (4.4-11.0)
--- NOTE | 2021-04-28 07:25 | RAD_ITS ---
STUDY: X-RAY CHEST REASON FOR EXAM: Male, 65 years old. SOB TECHNIQUE: Single AP portable view of the chest. COMPARISON: None. FINDINGS: Patchy alveolar opacities in both lungs consistent with bilateral pneumonia. Tiny bilateral pleural effusions. There is moderate cardiac enlargement. Normal mediastinum and elizabeth. Normal visualized pulmonary arteries. Normal visualized aortic arch and descending thoracic aorta. Normal visualized thoracic spine. Normal visualized ribs, clavicles, and shoulders. There is no demonstrated abnormality of the visualized soft tissue structures of the upper abdomen. RAD/Chest 1 View (Portable) IMPRESSION: Patchy bilateral pneumonia with tiny bilateral pleural effusions. Electronically Signed: Rupert Grimaldo MD at 8:16 EST ,
[2021-04-28 07:38] LABS: BNP,B-Type NATRIURETIC PEPTIDE 335.9 pg/mL (0-100)
[2021-04-28 07:48] LABS: Anion Gap 5 (5-15); BUN 45 mg/dL (7-18); BUN/Creat Ratio 12.5 RATIO (10-20); Calcium,Total 8.8 mg/dL (8.5-10.1); Chloride 112 mmol/L (98-107); Creatinine, Serum 3.61 mg/dL (0.70-1.30); EST Glomerular Filtration Rate 18 mL/min (>60); Est Glom Filt Rate - Afr Amer 22 mL/min (>60); Estimated Creatinine Clearance 20.78 ml/min; Glucose 305 mg/dL (74-106); Potassium 6.2 mmol/L (3.5-5.1); Sodium Level 140 mmol/L (136-145); Troponin-I HS 31 pg/mL (3.0-78.0)
[2021-04-28] MEDS: Ceftriaxone 1 GM/50 ML BAG IV (08:14)
[2021-04-28 08:21] LABS: Allen Test Positive; Base Excess -9 mmol/L (-2 to +2); Bicarbonate 20.2 mmol/L (22-26); Blood Gas Specimen Type ART; O2 Delivery Device Cannula; PO2 66 mmHG (75-100); SITE R Radial; SO2 85 % (95-99); Total Carbon Dioxide 22 mmol/L; pCO2 59.8 mmHg (35-45); pH 7.14 (7.35-7.45)
--- NOTE | 2021-04-28 08:28 | CPS ---
Second duoneb Tx was given per Dr. George prater order
--- NOTE | 2021-04-28 10:50 | CASEMGMT ---
DEVEN SAAVEDRA assessment: Face to Face with patient for initial transition planning/care coordination assessment. DEVEN SAAVEDRA introduced self and role at [facility], pt voices understanding and consents to assessmend at this time. Pt is lying in bed on 4L nc with tachypnea, pt able to speak several words at a time. Pt is A/Ox 4 and answers all questions appropriately. Care providers, pharmacy, and demographics verified. Presentation: Pt presented for resp distress via squad Admitting dx: Acute resp failure, COPD exac PCP: Emile Specialists: [place] nephdang; Cain, pulm; Dago, cardio Preferred [facility]acy: [facility] Insurance: [employer] Prescription Benefit: [employer] Living Will/HPOA: Pt does not have LW/HPOA and declines AD info at this time, stating I have it all at home, I just need to do it.' LNOK: Vita Evans, sister Living Arrangements: Pt lives alone in mobile home with 5 ra[address] in and states no concerns at home. Pt is independent with ADL's. Transportation: Pt drives self and states no transportation concerns. DME/HHC: Pt states has the following DME: WW, cane, nebulizer, and home oxygen 3L cont thru [employer]. Pt states no need for any further DME. Pt states no hx of HHC or SNF. Pt states no concerns with going home at discharge. Pt is retired. Pt states quit smoking cigarettes 3 months ago and states does not drink ETOH. Pt states no further concerns/needs. CM to follow for therapy evals, increased home oxygen need, and any further discharge planning/needs. Advised pt to ask for CM if any further questions/concenrs/needs arise, voices understanding. Pt Goal: Home Plan[place] DEVEN SAAVEDRA
[2021-04-28] MEDS: levoFLOXacin IV 750 MG/150 ML BAG 100 MG IV (11:40)
[2021-04-28] MEDS: Insulin Lispro 100 UNIT/ML INSULN.PEN SC ×3 (11:40→21:38)
[2021-04-28 11:41] LABS: Bedside Glucose 375 mg/dL (70-110)
[2021-04-28 11:53] LABS: Troponin-I HS 26 pg/mL (3.0-78.0)
[2021-04-28 13:48] LABS: Troponin-I HS 42 pg/mL (3.0-78.0)
[2021-04-28 16:16] LABS: Bedside Glucose 425 mg/dL (70-110)
--- NOTE | 2021-04-28 17:03 | HP.PCM_ITS ---
HPI - General General Date of Admission: 04/28/21 HPI Narrative BARI KELLY, is a 65 M with a past medical history as outlined who presented via the ED on 04/28/2021 with a complaint of shortness of breath. His shortness of breath has been going on for a few days and is gradually worsened. Patient states he usually uses 3 L of oxygen at night at home but had been using it more often and had increased it to around 4. He does have a history of COPD. His shortness of breath had worsened and he had an associated cough which was nonproductive. He denied any fever or chills but admitted to increased sweating. He could not feel better despite using his breathing treatments and oxygen so he called the EMS in the morning of the day of admission. EMS had to put him on BiPAP when they arrived at his home as patient was hypoxic with saturation around 86%. He was therefore brought in to the ED. Vitals in the ED at time of review was temperature of 97.5 Fahrenheit with blood pressure of 150/74, respiratory rate of 26 and he was saturating at 92% on 4 L of oxygen. He had been weaned off of BiPAP and put on 4 L of oxygen. CBC showed WBC of 14.6 and hemoglobin of 12.2 with platelets of 259. Chemistry showed sodium of 140 with potassium of 6.2 but this was of moderate hemolysis. Creatinine was 3.61 and bicarb was 23. ABG done showed pH of 7.14 with PCO2 of 59.8. He was a dmitted to be managed for acute on chronic hypoxic respiratory failure due to COPD exacerbation. [facility] Home Medications albuterol sulfate 2 puff INHALATION 4X/DAY 04/28/21 [History Last Taken Unknown] allopurinol 100 mg PO DAILY 04/28/21 [History Last Taken Unknown] amiodarone 200 mg PO DAILY 04/28/21 [History Last Taken Unknown] amlodipine 5 mg PO DAILY 04/28/21 [History Last Taken Unknown] aspirin 81 mg PO DAILY 04/28/21 [History Last Taken Unknown] blood-glucose meter [LumafitTouch Verio Flex meter] 04/28/21 [History Last Taken U nknown] cholecalciferol (vitamin D3) [Vitamin D3] 2,000 unit PO DAILY 04/28/21 [History Last Taken Unknown] clopidogrel 75 mg PO DAILY 04/28/21 [History Last Taken Unknown] diazepam 5 mg PO BID 04/28/21 [History Last Taken Unknown] escitalopram oxalate 20 mg PO DAILY 04/28/21 [History Last Taken Unknown] ferrous sulfate 325 mg PO DAILY 04/28/21 [History Last Taken Unknown] finasteride 5 mg PO DAILY 04/28/21 [History Last Taken Unknown] insulin aspart U-100 [Novolog Flexpen U-100 Insulin] 25 unit SUBCUT TID 04/28/21 [History Last Taken Unknown] insulin degludec [Tresiba FlexTouch U-100] 30 unit SUBCUT BID 04/28/21 [History Last Taken Unknown] levothyroxine 88 mcg PO DAILY 04/28/21 [History Last Taken Unknown] loperamide 2 mg PO Q4H PRN PRN 04/28/21 [History Last Taken Unknown] metoprolol succinate 50 mg PO DAILY 04/28/21 [History Last Taken Unknown] naloxone [Narcan] 4 mg INTRANASAL PRN PRN 04/28/21 [History Last Taken Unknown] oxycodone 5 mg PO BID 04/28/21 [History Last Taken Unknown] pantoprazole 40 mg PO DAILY 04/28/21 [History Last Taken Unknown] rosuvastatin 10 mg PO DAILY 04/28/21 [History Last Taken Unknown] sodium bicarbonate 650 mg PO DAILY 04/28/21 [History Last Taken Unknown] Allergy/AdvReac Type Severity Reaction Status Date / Time No Known Allergies Allergy Verified 04/28/21 07:57 Social History Smoking Status: Former smoker ROS Constitutional Constitutional: Reports fatigue, malaise and weakness; Denies anorexia, chills or fever(s) Eyes Eyes: Denies change in vision ENT HEENT: Denies dysphagia, headache(s), loss taste/smell or nasal congestion Cardiovascular Cardiovascular: Denies chest pain, edema, orthopnea, palpitations, paroxysmal nocturnal dyspnea or syncope Respiratory/Chest Respiratory/Chest: Reports cough, shortness of breath at rest, shortness of breath with exertion and wheezing Gastrointestinal Gastrointestinal: Denies abdominal pain, constipation, dyspepsia or vomiting Genitourinary Genitourinary: Denies dysuria or urinary frequency Musculoskeletal Musculoskeletal: Denies back pain, joint pain, joint swelling, limited range of motion or muscle weakness Integumentary Integumentary: Denies dry skin or jaundice Neurologic Neurologic: Denies confusion, dizziness, focal weakness, seizures, tingling or weakness Psychiatric Psychiatric: Reports depression; Denies anxiety Vital Signs Vital Signs Vital Signs: 04/28/21 06:54 04/28/21 07:04 04/28/21 07:07 Temperature 97.6 F L 98.8 F Temperature Source Temporal Temporal Pulse Rate 94 98 96 Respiratory Rate 31 H 26 H 25 H Respiratory Effort Respiratory Depth Respiratory Pattern Tachypnea Blood Pressure 210/94 H 147/74 H Blood Pressure [BP] Blood Pressure Mean 132 98 Blood Pressure Mean [BP] Blood Pressure Source [BP] Blood Pressure Position [BP] Blood Pressure Location [BP] Pulse Ox 66 93 94 Oxygen Delivery Method Bi-pap Bi-pap Oxygen Flow Rate (L/min) 15 Fraction of Inspired Oxygen (FIO2) 45 04/28/21 07:47 04/28/21 07:58 04/28/21 08:00 Temperature Temperature Source Pulse Rate 89 88 Respiratory Rate 25 H 24 H Respiratory Effort Respiratory Depth Respiratory Pattern Tachypnea Blood Pressure 166/97 H Blood Pressure [BP] Blood Pressure Mean 120 Blood Pressure Mean [BP] Blood Pressure Source [BP] Blood Pressure Position [BP] Blood Pressure Location [BP] Pulse Ox 92 93 Oxygen Delivery Method Nasal Cannula Nasal Cannula Oxygen Flow Rate (L/min) 4 4 Fraction of Inspired Oxygen (FIO2) 04/28/21 08:20 04/28/21 08:52 04/28/21 09:12 Temperature 97.5 F L 97.5 F L Temperature Source Temporal Temporal Pulse Rate 89 92 91 Respiratory Rate 26 H 25 H 26 H Respiratory Effort Respiratory Depth Respiratory Pattern Tachypnea Blood Pressure 150/74 H 151/99 H Blood Pressure [BP] Blood Pressure Mean 99 116 Blood Pressure Mean [BP] Blood Pressure Source [BP] Blood Pressure Position [BP] Blood Pressure Location [BP] Pulse Ox 92 93 Oxygen Delivery Method Nasal Cannula Nasal Cannula Oxygen Flow Rate (L/min) 4 4 Fraction of Inspired Oxygen (FIO2) 04/28/21 09:55 04/28/21 10:00 04/28/21 10:15 Temperature 97.3 F L Temperature Source Temporal Pulse Rate 95 92 91 Respiratory Rate 37 H 19 H 20 H Respiratory Effort Short of Breath Labored Respiratory Depth Shallow Respiratory Pattern Tachypnea Blood Pressure Blood Pressure [BP] 157/82 H 138/77 H 143/80 H Blood Pressure Mean Blood Pressure Mean [BP] 107 97 101 Blood Pressure Source [BP] Monitor Monitor Monitor Blood Pressure Position [BP] Semi-Fowlers Semi-Fowlers Semi-Fowlers Blood Pressure Location [BP] Right Arm Right Arm Right Arm Pulse Ox 93 95 95 Oxygen Delivery Method Nasal Cannula Nasal Cannula Nasal Cannula Oxygen Flow Rate (L/min) 4 4 4 Fraction of Inspired Oxygen (FIO2) 04/28/21 10:30 04/28/21 11:00 04/28/21 11:30 Temperature Temperature Source Pulse Rate 92 95 90 Respiratory Rate 27 H 21 H 24 H Respiratory Effort Respiratory Depth Respiratory Pattern Blood Pressure Blood Pressure [BP] 160/79 H 161/83 H 161/77 H Blood Pressure Mean Blood Pressure Mean [BP] 106 109 105 Blood Pressure Source [BP] Monitor Monitor Monitor Blood Pressure Position [BP] Semi-Fowlers Semi-Fowlers Semi-Fowlers Blood Pressure Location [BP] Right Arm Right Arm Right Arm Pulse Ox 97 92 99 Oxygen Delivery Method Nasal Cannula Nasal Cannula Nasal Cannula Oxygen Flow Rate (L/min) 4 4 4 Fraction of Inspired Oxygen (FIO2) 04/28/21 12:00 04/28/21 12:30 04/28/21 13:00 Temperature 97.5 F L Temperature Source Temporal Pulse Rate 87 85 84 Respiratory Rate 18 29 H 27 H Respiratory Effort Respiratory Depth Respiratory Pattern Blood Pressure Blood Pressure [BP] 160/70 H 150/90 H 138/63 H Blood Pressure Mean Blood Pressure Mean [BP] 100 110 88 Blood Pressure Source [BP] Monitor Monitor Monitor Blood Pressure Position [BP] Semi-Fowlers Semi-Fowlers Semi-Fowlers Blood Pressure Location [BP] Right Arm Right Arm Right Arm Pulse Ox 95 97 99 Oxygen Delivery Method Nasal Cannula Nasal Cannula Nasal Cannula Oxygen Flow Rate (L/min) 4 4 4 Fraction of Inspired Oxygen (FIO2) 04/28/21 14:00 04/28/21 14:11 04/28/21 15:00 Temperature Temperature Source Pulse Rate 91 89 89 Respiratory Rate 25 H 24 H 25 H Respiratory Effort Respiratory Depth Respiratory Pattern Tachypnea Blood Pressure Blood Pressure [BP] 164/78 H 174/82 H Blood Pressure Mean Blood Pressure Mean [BP] 106 112 Blood Pressure Source [BP] Monitor Monitor Blood Pressure Position [BP] Semi-Fowlers Semi-Fowlers Blood Pressure Location [BP] Right Arm Right Arm Pulse Ox 99 97 Oxygen Delivery Method Nasal Cannula Nasal Cannula Oxygen Flow Rate (L/min) 4 4 Fraction of Inspired Oxygen (FIO2) 04/28/21 16:00 Temperature Temperature Source Pulse Rate 86 Respiratory Rate 16 Respiratory Effort Respiratory Depth Respiratory Pattern Blood Pressure Blood Pressure [BP] 146/87 H Blood Pressure Mean Blood Pressure Mean [BP] 106 Blood Pressure Source [BP] Monitor Blood Pressure Position [BP] Semi-Fowlers Blood Pressure Location [BP] Right Arm Pulse Ox 97 Oxygen Delivery Method Nasal Cannula Oxygen Flow Rate (L/min) 4 Fraction of Inspired Oxygen (FIO2) Weight Weight: 205 lb 4.006 oz Body Mass Index (BMI) 28.6 Physical Exam Const alert and oriented x3 General Appearance: cooperative HEENT normocephalic and head/scalp atraumatic Mouth: dry mucous membranes Eyes PERRL and EOMs intact bilaterally Neck supple and no JVD Lymph Lymphatic: no lymphadenopathy noted Resp Resp Narrative: Patient tachypneic, audible wheezing. Bilateral wheezing in all lung [place]. Few crackles bibasilarly. On 4 L of oxygen. Tachypneic Cardio regular rate, regular rhythm, S1 normal heart sound, S2 normal heart sound and no murmurs GI normal to inspection, nondistended, normoactive bowel sounds, soft to palpation and non-tender Extremity normal capillary refill and no clubbing, cyanosis or edema General Extremity: no tenderness to palpation of joints or extremities Skin General Skin Exam: turgor normal Neuro CN's II-XII intact bilaterally and no focal motor deficits Motor Exam: strength 5/5 throughout Psych affect normal Appearance: appropriate Results Lab / Micro Data Result Diagrams: 04/28/21 07:07 04/28/21 07:07 Labs: Laboratory Results - last 24 hr 04/28/21 07:00: B-Natriuretic Peptide 335.9 H 04/28/21 07:07: WBC 14.6 H, RBC 4.04 L, Hgb 12.2 L, Hct 38.0 L, MCV 94.1 H, MCH 30.2, MCHC 32.1, RDW Std Deviation 51.3 H, RDW Coeff of Joana 14.8 H, Plt Count 259, MPV 11.8, Immature Gran % (Auto) 1.800 H, Neut % (Auto) 73.2 H, Lymph % (Auto) 15.4 L, [place] % (Auto) 7.3, Eos % (Auto) 1.7, Baso % (Auto) 0.6, Absolute Neuts (auto) 10.7 H, Absolute Lymphs (auto) 2.26, Nucleated RBC % 0 04/28/21 07:07: Sodium 140, Potassium 6.2 H*, Chloride 112 H, Carbon Dioxide 23.0, Anion Gap 5, BUN 45 H, Creatinine 3.61 H, Estim Creat Clear Calc 20.78, Est GFR (MDRD) Af Amer 22 L, Est GFR (MDRD) Non-Af 18 L, BUN/Creatinine Ratio 12 .5, Glucose 305 H, Calcium 8.8, Troponin I High Sens 31 04/28/21 07:07: Lactic Acid 1.0 04/28/21 11:30: Troponin I High Sens 26 04/28/21 11:34: POC Glucose 375 H 04/28/21 13:10: Troponin I High Sens 42 04/28/21 16:11: POC Glucose 425 H Micro: Microbiology 04/28/21 07:12 Nasal Secretion SARS-CoV-2 Antigen (Rapid) - Final ABG Data ABG results: ABG 04/28/21 08:11 Specimen Type ART Sample Site R Radial pH 7.14 L* Bicarbonate Actual 20.2 L Total CO2 22 Base Excess -9 L O2 Saturation 85 L ABG pCO2 59.8 H ABG pO2 66 L Donnie Test Positive O2 Delivery Device Cannula Liter Flow 4.0 Crit Call To/Read Back Yes Blood Gas Notified Whom dr. ramy martin Rhythm Strip Rhythm Strip: Sinus Rhythm Rate: 89 Ectopy: None Radiology Impression Chest X-Ray 04/28/21 07:25 IMPRESSION: Patchy bilateral pneumonia with tiny bilateral pleural effusions. Electronically Signed: Rupert Grimaldo MD at 8:16 EST , Assessment & Plan Assessment/Plan (1) Respiratory failure with hypoxia: (2) COPD with exacerbation: (3) Acute hyperkalemia: PLAN: #Acute on chronic hypoxic respiratory failure due to COPD exacerbation * Was on BiPAP but now on 4 L of oxygen. He usually wears 3 L of oxygen. * On IV Solu-Medrol 40 mg every 8 hours as needed. Breathing treatments bronchodilators. * Titrate oxygen to maintain saturation above 90%. * On IV levofloxacin 750 mg every 48 hours as needed. * ABG done showed pH of 7.14 with bicarb of 20.2 and PCO2 of 59.8 as well as pO2 of 66. * Admit to ICU and consult critical care. * #COPD exacerbation: As above #Pseudohyperkalemia * Potassium is 6.2. However there is moderate hemolysis * We will therefore repeat potassium and trend. * #A. fib: On amiodarone and metoprolol. Not anticoagulated, unclear why. #Type 2 diabetes mellitus: * On Tresiba 30 units twice daily. * States he is not been taking his insulin at home as he had run out. * Insulin sliding scale. * Accu-Cheks AC at bedtime. * #Hyperlipidemia: On rosuvastatin #CKD stage III: * Creatinine is 3.61. No baseline in the records. * Patient on sodium bicarbonate so he does have chronic kidney disease. * Hydrate gently with IV fluids. * #CAD: on aspirin and plavix as well as statin DVT prophylaxis: lovenox, renally dosed. CODE STATUS: Full code * Patient counseled extensively about different types of CODE STATUS including full code, DNR CCA and DNR CCA. Patient elects to be full code. * Total [id number] time 17 minutes. Charges/Coding Visit Charges Inpatient E&M: 41559 Init Hosp L3 Procedures Hospitalists Procedures: 90073 Advncd Care Plan 30 Min
[2021-04-28] MEDS: Insulin Lispro 100 UNIT/ML INSULN.PEN 10 UNIT SC (17:28)
[2021-04-28 17:45] LABS: Troponin-I HS 46 pg/mL (3.0-78.0)
[2021-04-28 18:10] LABS: Bedside Glucose 422 mg/dL (70-110)
[2021-04-28 18:19] LABS: Potassium 6.4 mmol/L (3.5-5.1)
[2021-04-28] MEDS: Insulin Lispro 10 UNIT in Syringe 0 ML 6 UNIT IV (19:44)
[2021-04-28] MEDS: Sodium Polystyrene Sulfonate 15 GM/60 ML UDC 30 GM PO (19:44)
[2021-04-28] MEDS: Calcium Gluconate IV 1 GM in Syringe 1 EACH IV (19:45)
[2021-04-28] MEDS: Dextrose 10%-Water 250 ML 999 ML IV (19:46)
[2021-04-28] MEDS: diazePAM 5 MG Tablet PO (21:36)
[2021-04-28] MEDS: oxyCODONE 5 MG Tablet PO (21:36)
[2021-04-28 21:51] LABS: Bedside Glucose 357 mg/dL (70-110)
[2021-04-29] VITALS (26 sets, daily range): BP systolic 91–160; BP diastolic 54–100; PULSE 71–102; RESP 14–36; TEMP 36.6–36.9; O2SAT 94–100
--- NOTE | 2021-04-29 02:35 | NURSING ---
Pt asked to be removed from BiPAP for a break, placed on NC 3L
[2021-04-29 04:44] LABS: Absolute Lymphocyte Count 0.53 X10^3/uL (0.83-4.51); Absolute Neutrophil Count 13.4 X10^3/uL (2.0-7.7); Basophil# 0.02 X10^3/uL; Basophil% 0.1 % (0-1); Hematocrit 32.7 % (40-54); Hemoglobin 10.4 g/dL (13.0-16.5); Lymphocyte # 0.53 X10^3/ul (0.83-4.51); Lymphocyte % 3.7 % (19-41); Mean Corp Hgb Conc 31.8 g/dL (32-36); Mean Corpuscular Hgb 30.4 pg (27.0-32.0); Mean Corpuscular Volume 95.6 fL (80-94); Mean Platelet Vol. 11.2 fl (6.2-12.0); Monocyte# 0.19 X10^3/uL; Monocyte% 1.3 % (0-10); NRBC Flagged by Analyzer 0 % (0-5); Neutrophil # 13.44 X10^3/uL (2.7-7.7); Neutrophil % 94.1 % (47-70); POSITIVE COUNT YES; POSITIVE DIFFERENTIAL YES; Platelet Count 86 K/mm3 (150-450); RBC Distribution Width CV 14.9 % (11.6-14.6); RBC Distribution Width SD 52.5 fl (35.1-43.9); Red Blood Count 3.42 M/mm3 (4.6-6.2); White Blood Count 14.3 K/mm3 (4.4-11.0)
[2021-04-29 04:46] LABS: Differential Indicated SCAN CRITERIA MET
[2021-04-29 04:59] LABS: Anion Gap 8 (5-15); BUN 57 mg/dL (7-18); BUN/Creat Ratio 14.4 RATIO (10-20); Calcium,Total 8.8 mg/dL (8.5-10.1); Chloride 112 mmol/L (98-107); Creatinine, Serum 3.95 mg/dL (0.70-1.30); EST Glomerular Filtration Rate 16 mL/min (>60); Est Glom Filt Rate - Afr Amer 20 mL/min (>60); Estimated Creatinine Clearance 19.59 ml/min; Glucose 320 mg/dL (74-106); Potassium 6.1 mmol/L (3.5-5.1); Sodium Level 138 mmol/L (136-145)
[2021-04-29 05:15] LABS: Platelet Estimate MOD DEC (ADEQ)
[2021-04-29] MEDS: diazePAM 5 MG Tablet PO ×2 (05:58→21:09)
[2021-04-29] MEDS: Levothyroxine 88 MCG Tablet PO (05:59)
--- NOTE | 2021-04-29 06:24 | EX.PCM.CONCC ---
Assessment & Plan Assessment/Plan (1) Respiratory failure with hypoxia: PLAN: RECOMMENDATIONS: 1. Continue supplemental oxygen as tolerated. 2. Recommend empiric use of BiPAP with naps and nightly. 3. Continue antimicrobials, bronchodilators and steroids. 4. The patient would likely benefit from further optimization of his baseline anxiolytic regimen. Consider palliative care follow-up. 5. Medical management of hyperkalemia per nephrology recommendations. 6. Encourage incentive spirometer use and mobilize patient as tolerated. 7. The patient needs to be scheduled for a follow-up office visit in the pulmonary medicine clinic 2 weeks post discharge. IMPRESSIONS: 1. Acute on chronic hypoxemic respiratory failure I do suspect that this is likely multifactorial in etiology. While the patient does have advanced age COPD, she also has a great deal of baseline anxiety and frequent panic attacks which is likely contributing to worsening air trapping and symptomology. In addition, the patient has heart failure with preserved ejection fraction/pulmonary hypertension and appears to have some excess volume on chest imaging. However, the patient has underlying renal insufficiency, which has worsened. For now, it is reasonable to continue empiric antimicrobials along with bronchodilators and steroids. Nephrology is currently following to assist with renal related issues. The patient would likely benefit from further optimization of his baseline anxiolytic regimen. He has been evaluated in the past by palliative care. The patient has been utilizing supplemental oxygen at his baseline at 3 L/min. 2. Acute on chronic kidney disease/hyperkalemia Nephrology is currently following. Defer management accordingly. 3. History of coronary artery disease status post PCI/pulmonary hypertension Continue outpatient cardiac regimen. Consider diuretic therapy if feasible from a renal perspective. 4. Generalized anxiety disorder/panic attacks Continue baseline Valium regimen. Given that the patient has reported increasing panic attack frequency since his , he may need further optimization of his anxiolytic therapy, as this will undoubtedly impact the stability of his breathing quality. 5. Chronic tobacco dependency, currently in remission The patient does have an extensive tobacco abuse history, but reported that he quit smoking completely approximately 3 weeks ago. Ongoing tobacco cessation was strongly recommended. 6. History of obstructive sleep apnea with PAP noncompliance While admitted to the hospital, recommend empiric utilization of BiPAP with naps and nightly. 7. Diabetes mellitus/BPH/hypothyroidism/chronic pain Complicates care, management, recovery and prognosis. Continue home medications as indicated. This note was generated with Dragon dictation software. It may contain incorrect words, spelling, and punctuation that were not noted in checking the note before signing. HPI Consult Data Date of Consult: 04/29/21 HPI Narrative Reason for Consultation: COPD exacerbation HPI Narrative: The patient is a 65-year-old male, with a history as outlined below, who presented to the emergency department on April 28 with worsening dyspnea. The patient has a known history of COPD, obstructive sleep apnea and chronic tobacco dependency. He has a 40+ pack year smoking history. Despite the patient's known history of sleep apnea, he is noncompliant with the use of nocturnal Pap therapy. His PFTs in the past have demonstrated an irreversible severe mixed ventilatory defect with symmetric reduction in diffusing capacity. The patient is currently followed in the pulmonary medicine clinic, but did not show up for his last scheduled appointment. The patient's medical history is also significant for chronic kidney disease, for which he is followed by Dr. Magana of nephrology. The patient was just admitted to the hospital in February 2021 for 1 week, during which time, he underwent cardiac catheterization which revealed multivessel disease, which required multivessel PCI. The patient then developed worsening renal insufficiency which was felt to be secondary to contrast-induced nephropathy. On presentation to the emergency department, the patient was noted to be afebrile but was profoundly hypertensive with a blood pressure of 212/94 mmHg. Laboratory evaluation revealed a white blood cell count of 14,000. Chemistry profile was notable for a potassium of 6.2, chloride of 112, BUN of 45 and creatinine of 3.61. BNP was elevated at 335. ABG revealed a pH of 7.14 with a PCO2 of 60 and PO2 of 66. Chest imaging demonstrated poor inspiratory volume with patchy infiltrates bilaterally, fluid within the fissure and blunting of the costophrenic angles. In the emergency department, the patient was placed on BiPAP therapy. He was started on antibiotics, bronchodilators and steroids. After a short time on BiPAP, the patient was able to be weaned off and placed on nasal cannula oxygen. He was then admitted to the medical intensive care unit. Overnight, the patient utilized BiPAP only for short period of time. He does have underlying anxiety with frequent panic attacks. The patient became worked up this morning and was given his scheduled Valium early. He is otherwise clinically stable. ON LICENSE OF [facility] Home Medications albuterol sulfate 2 puff INHALATION 4X/DAY 04/28/21 [History Last Taken Unknown] allopurinol 100 mg PO DAILY 04/28/21 [History Last Taken Unknown] amiodarone 200 mg PO DAILY 04/28/21 [History Last Taken Unknown] amlodipine 5 mg PO DAILY 04/28/21 [History Last Taken Unknown] aspirin 81 mg PO DAILY 04/28/21 [History Last Taken Unknown] blood-glucose meter [Conscious Boxuch Verio Flex meter] 04/28/21 [History Last Taken Unknown] cholecalciferol (vitamin D3) [Vitamin D3] 2,000 unit PO DAILY 04/28/21 [History Last Taken Unknown] clopidogrel 75 mg PO DAILY 04/28/21 [History Last Taken Unknown] diazepam 5 mg PO BID 04/28/21 [History Last Taken Unknown] escitalopram oxalate 20 mg PO DAILY 04/28/21 [History Last Taken Unknown] ferrous sulfate 325 mg PO DAILY 04/28/21 [History Last Taken Unknown] finasteride 5 mg PO DAILY 04/28/21 [History Last Taken Unknown] insulin aspart U-100 [Novolog Flexpen U-100 Insulin] 25 unit SUBCUT TID 04/28/21 [History Last Taken Unknown] insulin degludec [Tresiba FlexTouch U-100] 30 unit SUBCUT BID 04/28/21 [History Last Taken Unknown] levothyroxine 88 mcg PO DAILY 04/28/21 [History Last Taken Unknown] loperamide 2 mg PO Q4H PRN PRN 04/28/21 [History Last Taken Unknown] metoprolol succinate 50 mg PO DAILY 04/28/21 [History Last Taken Unknown] naloxone [Narcan] 4 mg INTRANASAL PRN PRN 04/28/21 [History Last Taken Unknown] oxycodone 5 mg PO BID 04/28/21 [History Last Taken Unknown] pantoprazole 40 mg PO DAILY 04/28/21 [History Last Taken Unknown] rosuvastatin 10 mg PO DAILY 04/28/21 [History Last Taken Unknown] sodium bicarbonate 650 mg PO DAILY 04/28/21 [History Last Taken Unknown] Allergy/AdvReac Type Severity Reaction Status Date / Time No Known Allergies Allergy Verified 04/28/21 07:57 Social History Smoking Status: Former smoker ROS Constitutional Constitutional: Denies body ache(s), chills or fatigue Eyes Eyes: Denies blurry vision or change in vision ENT HEENT: Denies dizziness, dysphagia, epistaxis or headache(s) Cardiovascular Cardiovascular: Reports dyspnea; Denies edema Respiratory/Chest Respiratory/Chest: Reports dyspnea; Denies cough Gastrointestinal Gastrointestinal: Denies abdominal pain, diarrhea, nausea or vomiting Genitourinary Genitourinary: Denies difficulty urinating Musculoskeletal Musculoskeletal: Denies arthralgias or joint pain Integumentary Integumentary: Denies lesions, rash or skin ulcer Neurologic Neurologic: Denies abnormal gait or abnormal speech Psychiatric Psychiatric: Reports anxiety, depression and panic attacks Endocrine Endocrinology: Denies fatigue or polydipsia Hematologic/Lymphatic Hematologic/Lymphatic: Denies easy bleeding or easy bruising Physical Exam Const alert and no apparent distress General Appearance: cooperative HEENT normocephalic, head/scalp atraumatic and moist oral mucous membranes Eyes PERRL, EOMs intact bilaterally and conjunctivae normal Neck supple General: trachea midline Chest inspection of chest normal Resp Resp Narrative: Globally diminished air movement throughout all lung gamboa with prolonged expiratory phase. No wheezes, rales or rhonchi present. Effort and Inspection: able to speak in complete sentences Cardio regular rate and regular rhythm GI normal to inspection, nondistended, normoactive bowel sounds Extremity no clubbing, cyanosis or edema Skin no rashes or lesions noted Neuro CN's II-XII intact bilaterally, moves all extremities and no focal motor deficits Psych Mood & Affect: anxious Lab / Micro Data Result Diagrams: 04/29/21 04:30 04/29/21 04:30 Labs: Laboratory Results - last 24 hr 04/28/21 07:00: B-Natriuretic Peptide 335.9 H 04/28/21 07:07: WBC 14.6 H, RBC 4.04 L, Hgb 12.2 L, Hct 38.0 L, MCV 94.1 H, MCH 30.2, MCHC 32.1, RDW Std Deviation 51.3 H, RDW Coeff of Joana 14.8 H, Plt Count 259, MPV 11.8, Immature Gran % (Auto) 1.800 H, Neut % (Auto) 73.2 H, Lymph % (Auto) 15.4 L, [place] % (Auto) 7.3, Eos % (Auto) 1.7, Baso % (Auto) 0.6, Absolute Neuts (auto) 10.7 H, Absolute Lymphs (auto) 2.26, Nucleated RBC % 0 04/28/21 07:07: Sodium 140, Potassium 6.2 H*, Chloride 112 H, Carbon Dioxide 23.0, Anion Gap 5, BUN 45 H, Creatinine 3.61 H, Estim Creat Clear Calc 20.78, Est GFR (MDRD) Af Amer 22 L, Est GFR (MDRD) Non-Af 18 L, BUN/Creatinine Ratio 12.5, Glucose 305 H, Calcium 8.8, Troponin I High Sens 31 04/28/21 07:07: Lactic Acid 1.0 04/28/21 11:30: Troponin I High Sens 26 04/28/21 11:34: POC Glucose 375 H 04/28/21 13:10: Troponin I High Sens 42 04/28/21 16:11: POC Glucose 425 H 04/28/21 17:00: Troponin I High Sens 46 04/28/21 17:00: Potassium 6.4 H* 04/28/21 17:08: POC Glucose 422 H 04/28/21 21:34: POC Glucose 357 H 04/29/21 04:30: WBC 14.3 H, RBC 3.42 L, Hgb 10.4 L, Hct 32.7 L, MCV 95.6 H, MCH 30.4, MCHC 31.8 L, RDW Std Deviation 52.5 H, RDW Coeff of Joana 14.9 H, Plt Count 86 L, MPV 11.2, Immature Gran % (Auto) 0.800, Neut % (Auto) 94.1 H, Lymph % (Auto) 3.7 L, [place] % (Auto) 1.3, Eos % (Auto) 0.0, Baso % (Auto) 0.1, Absolute Neuts (auto) 13.4 H, Absolute Lymphs (auto) 0.53 L, Nucleated RBC % 0, Platelet Estimate MOD DEC 04/29/21 04:30: Sodium 138, Potassium 6.1 H*, Chloride 112 H, Carbon Dioxide 18.0 L, Anion Gap 8, BUN 57 H, Creatinine 3.95 H, Estim Creat Clear Calc 19.59, Est GFR (MDRD) Af Amer 20 L, Est GFR (MDRD) Non-Af 16 L, BUN/Creatinine Ratio 14.4, Glucose 320 H, Calcium 8.8 Micro: Microbiology 04/28/21 07:12 Nasal Secretion SARS-CoV-2 Antigen (Rapid) - Final ABG Data ABG results: ABG 04/28/21 08:11 Specimen Type ART Sample Site R Radial pH 7.14 L* Bicarbonate Actual 20.2 L Total CO2 22 Base Excess -9 L O2 Saturation 85 L ABG pCO2 59.8 H ABG pO2 66 L Donnie Test Positive O2 Delivery Device Cannula Liter Flow 4.0 Crit Call To/Read Back Yes Blood Gas Notified Whom dr. ramy martin Rhythm Strip Rhythm Strip: Sinus Rhythm Rate: 89 Ectopy: None Radiology Impression Chest X-Ray 04/28/21 07:25 IMPRESSION: Patchy bilateral pneumonia with tiny bilateral pleural effusions. Electronically Signed: Rupert Grimaldo MD at 8:16 EST , Charges/Coding Visit Charges Inpatient E&M: 60105 Init Hosp L3
[2021-04-29] MEDS: Sodium Polystyrene Sulfonate 15 GM/60 ML UDC 30 GM PO (08:15)
[2021-04-29] MEDS: Finasteride 5 MG Tablet PO (08:16)
[2021-04-29] MEDS: Allopurinol 100 MG Tablet PO (08:17)
[2021-04-29] MEDS: amLODIPine 5 MG Tablet PO (08:17)
[2021-04-29] MEDS: Sodium Bicarbonate 650 MG Tablet PO ×3 (08:17→21:09)
[2021-04-29] MEDS: Amiodarone 200 MG Tablet PO (08:18)
[2021-04-29] MEDS: Aspirin E.C. 81 MG Tablet PO (08:18)
[2021-04-29] MEDS: Metoprolol(XL)Succ 50 MG Tablet PO (08:18)
[2021-04-29] MEDS: Clopidogrel Bisulfate 75 MG Tablet PO (08:19)
[2021-04-29] MEDS: Pantoprazole Sodium 40 MG Tablet PO (08:19)
[2021-04-29] MEDS: Cholecalciferol (VIT D3) 25 MCG TABLET (1,000 UNITS) 50 MCG PO (08:19)
[2021-04-29] MEDS: Insulin Lispro 100 UNIT/ML INSULN.PEN SC ×4 (08:20→21:09)
[2021-04-29] MEDS: Escitalopram Oxalate 20 MG Tablet PO (08:20)
[2021-04-29] MEDS: Atorvastatin Calcium 20 MG Tablet PO (08:20)
[2021-04-29] MEDS: Enoxaparin 30 MG/0.3 ML Syringe SC (08:20)
[2021-04-29] MEDS: Insulin Lispro 100 UNIT/ML INSULN.PEN 25 UNIT SC ×3 (08:21→17:01)
--- NOTE | 2021-04-29 10:28 | PN.HOSP_ITS ---
Subjective Subjective Patient in and examined. He is feeling better today. His breathing is much better. He wore his CPAP overnight and is down to 3 L of oxygen today. Review of systems otherwise negative. He is now on 3 L of oxygen. He received Kayexalate yesterday after repeat potassium came back at 6.4. Potassium today 6.1. Objective Data Objective Data Vital Signs: Vital Signs Temp Pulse Resp BP Pulse Ox 98.2 F 71 16 94/54 L 96 04/29/21 10:00 04/29/21 10:00 04/29/21 10:00 04/29/21 10:00 04/29/21 10:00 Oxygen Flow Rate (L/min) 3 Oxygen Delivery Method Nasal Cannula Weight: 205 lb 4.006 oz Body Mass Index (BMI) 28.6 Intake & Output: Intake and Output for Last 24 Hours 04/27/21 04/28/21 04/29/21 23:59 23:59 23:59 Intake Total 1185 / 1185 240 / 240 Output Total 600 / 600 Balance 585 / 585 240 / 240 Lab / Micro Data Result Diagrams: 04/29/21 04:30 04/29/21 04:30 Labs: Laboratory Results - last 24 hr 04/28/21 11:30: Troponin I High Sens 26 04/28/21 11:34: POC Glucose 375 H 04/28/21 13:10: Troponin I High Sens 42 04/28/21 16:11: POC Glucose 425 H 04/28/21 17:00: Troponin I High Sens 46 04/28/21 17:00: Potassium 6.4 H* 04/28/21 17:08: POC Glucose 422 H 04/28/21 21:34: POC Glucose 357 H 04/29/21 04:30: WBC 14.3 H, RBC 3.42 L, Hgb 10.4 L, Hct 32.7 L, MCV 95.6 H, MCH 30.4, MCHC 31.8 L, RDW Std Deviation 52.5 H, RDW Coeff of Joana 14.9 H, Plt Count 86 L, MPV 11.2, Immature Gran % (Auto) 0.800, Neut % (Auto) 94.1 H, Lymph % (Auto) 3.7 L, [place] % (Auto) 1.3, Eos % (Auto) 0.0, Baso % (Auto) 0.1, Absolute Neuts (auto) 13.4 H, Absolute Lymphs (auto) 0.53 L, Nucleated RBC % 0, Platelet Estimate MOD 04/29/21 04:30: Sodium 138, Potassium 6.1 H*, Chloride 112 H, Carbon Dioxide 18.0 L, Anion Gap 8, BUN 57 H, Creatinine 3.95 H, Estim Creat Clear Calc 19.59, Est GFR (MDRD) Af Amer 20 L, Est GFR (MDRD) Non-Af 16 L, BUN/Creatinine Ratio 14.4, Glucose 320 H, Calcium 8.8 Micro: Microbiology 04/28/21 07:12 Nasal Secretion SARS-CoV-2 Antigen (Rapid) - Final Rhythm Strip Rhythm Strip: Sinus Rhythm Rate: 89 Ectopy: None Physical Exam Const alert, oriented x3 and no apparent distress General Appearance: cooperative Exam Limitations: no limitations HEENT normocephalic, head/scalp atraumatic and moist oral mucous membranes Head and Scalp: normocephalic Eyes PERRL and EOMs intact bilaterally Neck no lymphadenopathy, supple and no JVD Lymph Lymphatic: no lymphadenopathy noted Resp Resp Narrative: diminished breath sounds bibasally, no wheezes or crackles. On 3L of oxygen by nasal canula. Cardio regular rate, regular rhythm, S1 normal heart sound, S2 normal heart sound and no murmurs GI normal to inspection, nondistended, normoactive bowel sounds, soft to palpation and non-tender Extremity normal to inspection, full ROM, normal capillary refill and no clubbing, cyanosis or edema General Extremity: no tenderness to palpation of joints or extremities Peripheral Pulses: Yes pulses 2+ throughout Skin no rashes or lesions noted General Skin Exam: turgor normal Neuro oriented x3, CN's II-XII intact bilaterally and no focal motor deficits Sensorium / Orientation: awake and alert Motor Exam: strength 5/5 throughout Psych affect normal Appearance: appropriate Assessment & Plan Assessment/Plan (1) Respiratory failure with hypoxia: (2) COPD with exacerbation: (3) Acute hyperkalemia: PLAN: #Acute on chronic hypoxic respiratory failure due to COPD exacerbation * now on his baseline 3L of oxygen * titrate oxygen to maintain sats >90% * On IV Solu-Medrol 40 mg every 8 hours as needed. Breathing treatments with bronchodilators. * On IV levofloxacin 750 mg every 48 hours as needed. * critical care on board * #COPD exacerbation: As above #Hyperkalemia * repeat potassium was 6.4, so patient was given kayexalate * Potassium today is 6.1. Will give a repeat dose of kayexalate and trend. * * #A. fib: On amiodarone and metoprolol. Not anticoagulated, unclear why. #Type 2 diabetes mellitus: * On Tresiba 30 units twice daily. * Insulin sliding scale. * Accu-Cheks AC at bedtime. * #Hyperlipidemia: On rosuvastatin #CKD stage III: * Creatinine is 3.95. No baseline in the records. * per his datastage developer, patient's baseline Cr is 4-5. * bicarb today is down to 18. * on sodium bicarb. * nephrology consulted. Await rec's * * #CAD: on aspirin and plavix as well as statin DVT prophylaxis: lovenox, renally dosed. CODE STATUS: Full code * Disposition; transfer out of ICU to regular floor. Charges/Coding Visit Charges Inpatient E&M: 88413 Subs Hosp L2
[2021-04-29] MEDS: Ipratropium/Albuterol Sulfate 3 ML AMPUL.NEB INHALATION ×3 (10:32→19:15)
[2021-04-29] MEDS: Ferrous Sulfate 325 MG Tablet PO (11:05)
[2021-04-29] MEDS: oxyCODONE 5 MG Tablet PO ×2 (11:07→21:09)
[2021-04-29 11:10] LABS: Bedside Glucose 182 mg/dL (70-110)
[2021-04-29 16:50] LABS: Bedside Glucose 212 mg/dL (70-110)
[2021-04-29] MEDS: 0.9% Saline Lock 10 ML Syringe IV (21:10)
[2021-04-29 21:41] LABS: Bedside Glucose 155 mg/dL (70-110)
[2021-04-30] VITALS (17 sets, daily range): BP systolic 111–150; BP diastolic 59–77; PULSE 82–94; RESP 14–24; TEMP 36.5–36.8; O2SAT 86–100
--- NOTE | 2021-04-30 03:28 | NURSING ---
Pt asked for BIPAP to be removed for a break at 0210. Placed on baseline 2 L NC. BIPAP put back on at 0320. Pt resting with eyes closed.
[2021-04-30] MEDS: Sodium Bicarbonate 650 MG Tablet PO ×3 (05:37→21:36)
[2021-04-30] MEDS: Levothyroxine 88 MCG Tablet PO (05:37)
[2021-04-30] MEDS: 0.9% Saline Lock 10 ML Syringe IV (05:37)
[2021-04-30 06:24] LABS: Absolute Lymphocyte Count 0.65 X10^3/uL (0.83-4.51); Absolute Neutrophil Count 12.6 X10^3/uL (2.0-7.7); Basophil# 0.01 X10^3/uL; Basophil% 0.1 % (0-1); Hematocrit 31.3 % (40-54); Hemoglobin 9.9 g/dL (13.0-16.5); Lymphocyte # 0.65 X10^3/ul (0.83-4.51); Lymphocyte % 4.8 % (19-41); Mean Corp Hgb Conc 31.6 g/dL (32-36); Mean Corpuscular Hgb 30.1 pg (27.0-32.0); Mean Corpuscular Volume 95.1 fL (80-94); Mean Platelet Vol. 11.9 fl (6.2-12.0); Monocyte# 0.22 X10^3/uL; Monocyte% 1.6 % (0-10); NRBC Flagged by Analyzer 0 % (0-5); Neutrophil # 12.58 X10^3/uL (2.7-7.7); Neutrophil % 92.7 % (47-70); Platelet Count 219 K/mm3 (150-450); RBC Distribution Width CV 14.9 % (11.6-14.6); RBC Distribution Width SD 52.3 fl (35.1-43.9); Red Blood Count 3.29 M/mm3 (4.6-6.2); White Blood Count 13.6 K/mm3 (4.4-11.0)
[2021-04-30 07:05] LABS: Anion Gap 11 (5-15); BUN 83 mg/dL (7-18); BUN/Creat Ratio 18.8 RATIO (10-20); Calcium,Total 8.5 mg/dL (8.5-10.1); Chloride 109 mmol/L (98-107); Creatinine, Serum 4.42 mg/dL (0.70-1.30); EST Glomerular Filtration Rate 14 mL/min (>60); Est Glom Filt Rate - Afr Amer 17 mL/min (>60); Estimated Creatinine Clearance 17.51 ml/min; Glucose 277 mg/dL (74-106); Sodium Level 138 mmol/L (136-145)
[2021-04-30] MEDS: Ipratropium/Albuterol Sulfate 3 ML AMPUL.NEB INHALATION ×4 (07:10→19:15)
[2021-04-30 07:36] LABS: Bedside Glucose 315 mg/dL (70-110)
[2021-04-30] MEDS: Insulin Lispro 100 UNIT/ML INSULN.PEN SC ×4 (09:39→21:35)
[2021-04-30] MEDS: Insulin Lispro 100 UNIT/ML INSULN.PEN 25 UNIT SC ×3 (09:39→17:17)
[2021-04-30] MEDS: Enoxaparin 30 MG/0.3 ML Syringe SC (09:40)
[2021-04-30] MEDS: Metoprolol(XL)Succ 50 MG Tablet PO (09:40)
[2021-04-30] MEDS: Sodium Polystyrene Sulfonate 15 GM/60 ML UDC PO (09:40)
[2021-04-30] MEDS: Escitalopram Oxalate 20 MG Tablet PO (09:41)
[2021-04-30] MEDS: diazePAM 5 MG Tablet PO ×2 (09:41→21:36)
[2021-04-30] MEDS: amLODIPine 5 MG Tablet PO (09:41)
[2021-04-30] MEDS: Clopidogrel Bisulfate 75 MG Tablet PO (09:41)
[2021-04-30] MEDS: Cholecalciferol (VIT D3) 25 MCG TABLET (1,000 UNITS) 50 MCG PO (09:41)
[2021-04-30] MEDS: Pantoprazole Sodium 40 MG Tablet PO (09:41)
[2021-04-30] MEDS: Amiodarone 200 MG Tablet PO (09:41)
[2021-04-30] MEDS: Aspirin E.C. 81 MG Tablet PO (09:41)
[2021-04-30] MEDS: Allopurinol 100 MG Tablet PO (09:41)
[2021-04-30] MEDS: Finasteride 5 MG Tablet PO (09:41)
[2021-04-30] MEDS: oxyCODONE 5 MG Tablet PO ×2 (09:42→21:36)
[2021-04-30] MEDS: Atorvastatin Calcium 20 MG Tablet PO (09:45)
--- NOTE | 2021-04-30 09:54 | PCM.PN.INT ---
Assessment & Plan Assessment/Plan (1) Respiratory failure with hypoxia: PLAN: RECOMMENDATIONS: 1. Continue supplemental oxygen as tolerated. 2. Recommend empiric use of BiPAP with naps and nightly. 3. Continue antimicrobials, bronchodilators and steroids. 4. The patient would likely benefit from further optimization of his baseline anxiolytic regimen. Consider palliative care follow-up. 5. Medical management of hyperkalemia per nephrology recommendations. 6. Encourage incentive spirometer use and mobilize patient as tolerated. 7. The patient needs to be scheduled for a follow-up office visit in the pulmonary medicine clinic 2 weeks post discharge. 8. Okay to discharge from a pulmonary perspective when able to ambulate on 6 L or less IMPRESSIONS: 1. Acute on chronic hypoxemic respiratory failure I do suspect that this is likely multifactorial in etiology. While the patient does have advanced age COPD and also has a great deal of baseline anxiety and frequent panic attacks which is likely contributing to worsening air trapping and symptomology. In addition, the patient has heart failure with preserved ejection fraction/pulmonary hypertension and appears to have some excess volume on chest imaging. This is likely compensated poorly given his lack of compliance with NIV and renal insufficiency. However, the patient has underlying renal insufficiency, which has worsened. For now, it is reasonable to continue empiric antimicrobials along with bronchodilators and steroids. Patient can be transitioned to prednisone 40 mg and weaned over 12 to 14 days at discharge. Nephrology is currently following to assist with renal related issues. The patient would likely benefit from further optimization of his baseline anxiolytic regimen. He has been evaluated in the past by palliative care. The patient has been utilizing supplemental oxygen at his baseline at 3 L/min. Patient can likely be discharged once tolerating ambulation on 6 L or less. 2. Acute on chronic kidney disease/hyperkalemia Nephrology is currently following. Defer management accordingly. 3. History of coronary artery disease status post PCI/pulmonary hypertension Continue outpatient cardiac regimen. Consider diuretic therapy if agreeable from a renal perspective. 4. Generalized anxiety disorder/panic attacks Continue baseline Valium regimen. Given that the patient has reported increasing panic attack frequency since his , he may need further optimization of his anxiolytic therapy, as this will undoubtedly impact the stability of his breathing quality. Increased respiratory frequency will lead to turbulent airflow and exacerbate air trapping. 5. Chronic tobacco dependency, currently in remission The patient does have an extensive tobacco abuse history, but reported that he quit smoking completely approximately 3 weeks ago. Ongoing tobacco cessation was strongly recommended. 6. History of obstructive sleep apnea with PAP noncompliance While admitted to the hospital, recommend empiric utilization of BiPAP with naps and nightly. Failure to use NIV chronically likely complicates problems 1, 3 and 4. 7. Diabetes mellitus/BPH/hypothyroidism/chronic pain Complicates care, management, recovery and prognosis. Continue home medications as indicated. Subjective Subjective Patient did okay overnight. Patient unable to tolerate BiPAP for an extended period of time. Patient states that he feels as though he is approaching his baseline at this time. Patient was found with a supplemental oxygen out of place, but has not been reporting any complications such as epistaxis. Patient does have dyspnea on exertion, but states that this is normal for me. Objective Data Objective Data Vital Signs: Vital Signs Temp Pulse Resp BP Pulse Ox 36.8 C 90 18 137/75 H 100 04/30/21 09:31 04/30/21 09:40 04/30/21 09:31 04/30/21 09:40 04/30/21 09:31 Oxygen Flow Rate (L/min) 2 Oxygen Delivery Method Room Air Weight: 95.3 kg Body Mass Index (BMI) 28.6 Intake & Output: Intake and Output for Last 24 Hours 04/28/21 04/29/21 04/30/21 23:59 23:59 23:59 Intake Total 1185 / 1185 600 / 800 350 / 350 Output Total 600 / 600 250 / 250 Balance 585 / 585 350 / 550 350 / 350 Lab / Micro Data Result Diagrams: 04/30/21 05:20 04/30/21 05:20 Labs: Laboratory Results - last 24 hr 04/29/21 11:03: POC Glucose 182 H 04/29/21 16:46: POC Glucose 212 H 04/29/21 21:08: POC Glucose 155 H 04/30/21 05:20: WBC 13.6 H, RBC 3.29 L, Hgb 9.9 L, Hct 31.3 L, MCV 95.1 H, MCH 30.1, MCHC 31.6 L, RDW Std Deviation 52.3 H, RDW Coeff of Joana 14.9 H, Plt Count 219, MPV 11.9, Immature Gran % (Auto) 0.800, Neut % (Auto) 92.7 H, Lymph % (Auto) 4.8 L, [place] % (Auto) 1.6, Eos % (Auto) 0.0, Baso % (Auto) 0.1, Absolute Neuts (auto) 12.6 H, Absolute Lymphs (auto) 0.65 L, Nucleated RBC % 0 04/30/21 05:20: Sodium 138, Potassium 6.0 H*, Chloride 109 H, Carbon Dioxide 18.0 L, Anion Gap 11, BUN 83 H, Creatinine 4.42 H, Estim Creat Clear Calc 17.51, Est GFR (MDRD) Af Amer 17 L, Est GFR (MDRD) Non-Af 14 L, BUN/Creatinine Ratio 18.8, Glucose 277 H, Calcium 8.5 04/30/21 07:30: POC Glucose 315 H Micro: Microbiology 04/28/21 08:00 Blood Culture (Wb) #2 - Other Blood Culture - Preliminary No growth in 48 hours. 04/28/21 07:07 Blood Culture (Wb) - Venous Blood Culture - Preliminary No growth in 48 hours. 04/28/21 07:12 Nasal Secretion SARS-CoV-2 Antigen (Rapid) - Final Rhythm Strip Rhythm Strip: Sinus Rhythm Rate: 89 Ectopy: None Physical Exam Const alert and no apparent distress General Appearance: cooperative HEENT normocephalic, head/scalp atraumatic and moist oral mucous membranes Eyes PERRL, EOMs intact bilaterally and conjunctivae normal Neck supple General: trachea midline Chest Chest: abnormal inspection of the chest increased A-P diameter Resp Resp Narrative: Globally diminished air movement throughout all lung gamboa with prolonged expiratory phase. No wheezes, rales or rhonchi present. Effort and Inspection: able to speak in complete sentences Cardio regular rate and regular rhythm GI normal to inspection, nondistended, normoactive bowel sounds Extremity no clubbing, cyanosis or edema Skin no rashes or lesions noted Neuro CN's II-XII intact bilaterally, moves all extremities and no focal motor deficits Psych Mood & Affect: anxious Charges/Coding Visit Charges Inpatient E&M: 86255 Subs Hosp L2
[2021-04-30] MEDS: levoFLOXacin IV 750 MG/150 ML BAG 100 MG IV (11:02)
--- NOTE | 2021-04-30 11:42 | PCM.CONS.R ---
Assessment & Plan Assessment/Plan (1) Acute on chronic kidney failure: PLAN: Gently hydrate, monitor renal function. (2) CKD stage 4 due to type 2 diabetes mellitus: PLAN: Baseline creatinine mid threes now up to 4.4 today. Urine output incomplete. Has working AV fistula with good thrill and bruit (3) Acute hyperkalemia: PLAN: treated medically, add low K diet (4) COPD with exacerbation: (5) Respiratory failure with hypoxia: (6) Metabolic acidosis: PLAN: Replace bicarb by mouth and through IV fluids HPI Consult Data Date of Consult: 04/30/21 HPI Narrative Reason for Consultation: Acute on chronic kidney disease stage IV, hyperkalemia HPI Narrative: BARI KELLY, is a 65 M who presented to ED on 04/28/2021 with complaints of shortness of breath past few days gradually worsening. Patient states he usually uses 3 L of oxygen at night at home but had been using it more often and had increased it to around 4. He has a history of COPD with exacerbation in the past. Denies any fever or chills. He has a nonproductive cough. He has anxiety attacks. He was admitted to the intensive care unit now transferred to telemetry floor. He has CKD stage IV with baseline creatinine in the mid 3s in March 2021. Creatinine was 3.61 and bicarb was 23 on admission. Creatinine today elevated to 4.4 with decreased urine output. Potassium was treated with Kayexalate. Potassium is persistently elevated at 6.0 with metabolic acidosis with bicarb of 18. He is on oral bicarb 3 times a day at home. He has a history of requiring temporary hemodialysis following his heart cath with PCI in February 2021 for few treatments. COUNTS INCLUDE 234 BEDS AT THE [facility] Home Medications albuterol sulfate 2 puff INHALATION 4X/DAY 04/28/21 [History Last Taken Unknown] allopurinol 100 mg PO DAILY 04/28/21 [History Last Taken Unknown] amiodarone 200 mg PO DAILY 04/28/21 [History Last Taken Unknown] amlodipine 5 mg PO DAILY 04/28/21 [History Last Taken Unknown] aspirin 81 mg PO DAILY 04/28/21 [History Last Taken Unknown] blood-glucose meter [[email or web address] Verio Flex meter] 04/28/21 [History Last Taken Unknown] cholecalciferol (vitamin D3) [Vitamin D3] 2,000 unit PO DAILY 04/28/21 [History Last Taken Unknown] clopidogrel 75 mg PO DAILY 04/28/21 [History Last Taken Unknown] diazepam 5 mg PO BID 04/28/21 [History Last Taken Unknown] escitalopram oxalate 20 mg PO DAILY 04/28/21 [History Last Taken Unknown] ferrous sulfate 325 mg PO DAILY 04/28/21 [History Last Taken Unknown] finasteride 5 mg PO DAILY 04/28/21 [History Last Taken Unknown] insulin aspart U-100 [Novolog Flexpen U-100 Insulin] 25 unit SUBCUT TID 04/28/21 [History Last Taken Unknown] insulin degludec [Tresiba FlexTouch U-100] 30 unit SUBCUT BID 04/28/21 [History Last Taken Unknown] levothyroxine 88 mcg PO DAILY 04/28/21 [History Last Taken Unknown] loperamide 2 mg PO Q4H PRN PRN 04/28/21 [History Last Taken Unknown] metoprolol succinate 50 mg PO DAILY 04/28/21 [History Last Taken Unknown] naloxone [Narcan] 4 mg INTRANASAL PRN PRN 04/28/21 [History Last Taken Unknown] oxycodone 5 mg PO BID 04/28/21 [History Last Taken Unknown] pantoprazole 40 mg PO DAILY 04/28/21 [History Last Taken Unknown] rosuvastatin 10 mg PO DAILY 04/28/21 [History Last Taken Unknown] sodium bicarbonate 650 mg PO DAILY 04/28/21 [History Last Taken Unknown] Allergy/AdvReac Type Severity Reaction Status Date / Time No Known Allergies Allergy Verified 04/28/21 07:57 Social History Smoking Status: Former smoker ROS Constitutional Constitutional: Reports weakness; Denies chills or fever(s) Cardiovascular Cardiovascular: Denies chest pain Respiratory/Chest Respiratory/Chest: Reports dry cough, portable oxygen @ home, shortness of breath at rest and wheezing; Denies hemoptysis Gastrointestinal Gastrointestinal: Denies abdominal pain, diarrhea, nausea or vomiting Genitourinary Genitourinary: Denies difficulty urinating Integumentary Integumentary: Denies rash Neurologic Neurologic: Denies abnormal gait Psychiatric Psychiatric: Reports anxiety Hematologic/Lymphatic Hematologic/Lymphatic: Reports anemia Physical Exam Const alert and oriented x3 HEENT normocephalic Eyes EOMs intact bilaterally Resp clear to auscultation bilaterally Cardio regular rate GI non-tender and non-distended Auscultation: normoactive bowel sounds Palpation: soft Narrative: decreased urine volumes today Extremity full ROM Extremity Narrative: found iv heplock in left upper arm where AVF present. AVF with thrill and bruit General Extremity: edema bilateral (mild) Skin no wounds Neuro Sensorium / Orientation: awake and alert Lab / Micro Data Result Diagrams: 04/30/21 05:20 04/30/21 05:20 Labs: Laboratory Results - last 24 hr 04/29/21 16:46: POC Glucose 212 H 04/29/21 21:08: POC Glucose 155 H 04/30/21 05:20: WBC 13.6 H, RBC 3.29 L, Hgb 9.9 L, Hct 31.3 L, MCV 95.1 H, MCH 30.1, MCHC 31.6 L, RDW Std Deviation 52.3 H, RDW Coeff of Joana 14.9 H, Plt Count 219, MPV 11.9, Immature Gran % (Auto) 0.800, Neut % (Auto) 92.7 H, Lymph % (Auto) 4.8 L, [place] % (Auto) 1.6, Eos % (Auto) 0.0, Baso % (Auto) 0.1, Absolute Neuts (auto) 12.6 H, Absolute Lymphs (auto) 0.65 L, Nucleated RBC % 0 04/30/21 05:20: Sodium 138, Potassium 6.0 H*, Chloride 109 H, Carbon Dioxide 18.0 L, Anion Gap 11, BUN 83 H, Creatinine 4.42 H, Estim Creat Clear Calc 17.51, Est GFR (MDRD) Af Amer 17 L, Est GFR (MDRD) Non-Af 14 L, BUN/Creatinine Ratio 18.8, Glucose 277 H, Calcium 8.5 04/30/21 07:30: POC Glucose 315 H Micro: Microbiology 04/28/21 08:00 Blood Culture (Wb) #2 - Other Blood Culture - Preliminary No growth in 48 hours. 04/28/21 07:07 Blood Culture (Wb) - Venous Blood Culture - Preliminary No growth in 48 hours. Rhythm Strip Rhythm Strip: Sinus Rhythm Rate: 89 Ectopy: None
[2021-04-30] MEDS: Ferrous Sulfate 325 MG Tablet PO (11:52)
[2021-04-30 12:01] LABS: Bedside Glucose 398 mg/dL (70-110)
[2021-04-30 12:59] LABS: Anion Gap 12 (5-15); BUN 86 mg/dL (7-18); BUN/Creat Ratio 18.6 RATIO (10-20); Calcium,Total 8.9 mg/dL (8.5-10.1); Chloride 109 mmol/L (98-107); Creatinine, Serum 4.62 mg/dL (0.70-1.30); EST Glomerular Filtration Rate 14 mL/min (>60); Est Glom Filt Rate - Afr Amer 16 mL/min (>60); Estimated Creatinine Clearance 16.75 ml/min; Glucose 329 mg/dL (74-106); Sodium Level 136 mmol/L (136-145)
--- NOTE | 2021-04-30 13:09 | CASEMGMT ---
Call to [facility] states pt is not active with them at this time. CM to follow for pt's home oxygen company. Palliative referral had been sent previously and per Sangita at [facility] palliative, they called pt multiple times to schedule to sign consents and they finally reached him on 04/23/21 and pt stated he was doing well and pt declined services at that time. Maricruz CARVALHO CM
--- NOTE | 2021-04-30 15:51 | PN.HOSP_ITS ---
Subjective Subjective Feels well. No shortness of breath Objective Data Objective Data Vital Signs: Vital Signs Temp Pulse Resp BP Pulse Ox 36.5 C L 86 18 118/59 L 97 04/30/21 14:47 04/30/21 14:54 04/30/21 14:47 04/30/21 14:47 04/30/21 14:47 Oxygen Flow Rate (L/min) [ 2 AMBULATING with Oxygen #1] Oxygen Flow Rate (L/min) 2 Oxygen Delivery Method Room Air Weight: 95.3 kg Body Mass Index (BMI) 28.6 Intake & Output: Intake and Output for Last 24 Hours 04/28/21 04/29/21 04/30/21 23:59 23:59 23:59 Intake Total 1185 / 1185 600 / 800 830 / 830 Output Total 600 / 600 250 / 250 100 / 100 Balance 585 / 585 350 / 550 730 / 730 Lab / Micro Data Result Diagrams: 04/30/21 05:20 04/30/21 12:24 Labs: Laboratory Results - last 24 hr 04/29/21 16:46: POC Glucose 212 H 04/29/21 21:08: POC Glucose 155 H 04/30/21 05:20: WBC 13.6 H, RBC 3.29 L, Hgb 9.9 L, Hct 31.3 L, MCV 95.1 H, MCH 30.1, MCHC 31.6 L, RDW Std Deviation 52.3 H, RDW Coeff of Joana 14.9 H, Plt Count 219, MPV 11.9, Immature Gran % (Auto) 0.800, Neut % (Auto) 92.7 H, Lymph % (Auto) 4.8 L, [place] % (Auto) 1.6, Eos % (Auto) 0.0, Baso % (Auto) 0.1, Absolute Neuts (auto) 12.6 H, Absolute Lymphs (auto) 0.65 L, Nucleated RBC % 0 04/30/21 05:20: Sodium 138, Potassium 6.0 H*, Chloride 109 H, Carbon Dioxide 18.0 L, Anion Gap 11, BUN 83 H, Creatinine 4.42 H, Estim Creat Clear Calc 17.51, Est GFR (MDRD) Af Amer 17 L, Est GFR (MDRD) Non-Af 14 L, BUN/Creatinine Ratio 18.8, Glucose 277 H, Calcium 8.5 04/30/21 07:30: POC Glucose 315 H 04/30/21 11:48: POC Glucose 398 H 04/30/21 12:24: Sodium 136, Potassium 5.0, Chloride 109 H, Carbon Dioxide 15.0 L , Anion Gap 12, BUN 86 H, Creatinine 4.62 H, Estim Creat Clear Calc 16.75, Est GFR (MDRD) Af Amer 16 L, Est GFR (MDRD) Non-Af 14 L, BUN/Creatinine Ratio 18.6, Glucose 329 H, Calcium 8.9 Micro: Microbiology 04/30/21 Unknown Urine, Clean Catch Legionella Antigen - Final 04/30/21 Unknown Urine, Clean Catch Streptococcus pneumoniae Antigen (M - Final 04/28/21 08:00 Blood Culture (Wb) #2 - Other Blood Culture - Preliminary No growth in 48 hours. 04/28/21 07:07 Blood Culture (Wb) - Venous Blood Culture - Preliminary No growth in 48 hours. 04/28/21 07:12 Nasal Secretion SARS-CoV-2 Antigen (Rapid) - Final Rhythm Strip Rhythm Strip: Sinus Rhythm Rate: 89 Ectopy: None Physical Exam Const alert and no apparent distress Resp normal respiratory effort, no retractions, no use of accessory muscles and clear to auscultation bilaterally Cardio regular rate, regular rhythm, S1 normal heart sound and S2 normal heart sound GI normal to inspection, nondistended, normoactive bowel sounds, soft to palpation, non-tender and non-distended Extremity normal to inspection Assessment & Plan Assessment/Plan (1) Acute on chronic kidney failure: QUALIFIERS: Acute renal failure type: unspecified Chronic kidney disease stage: stage 4 (severe) Qualified Code(s): N17.9 - Acute kidney failure, unspecified; N18.4 - Chronic kidney disease, stage 4 (severe) (2) Acute hyperkalemia: PLAN: 1. Hyperkalemia Improved Received additional dose of Kayexalate today. 2. Acute on chronic kidney disease Creatinine steadily worse No renal replacement therapy necessary at this time Nephrology following Patient be started on sodium bicarbonate drip 3. Acute COPD exacerbation Change steroids to prednisone improved 4. Acute hypoxic respiratory failure Secondary to COPD exacerbation and pneumonia On room air 5. VTE prophylaxis: Enoxaparin Charges/Coding Visit Charges Inpatient E&M: 97818 Subs Hosp L2
[2021-04-30 16:35] LABS: Bedside Glucose 183 mg/dL (70-110)
[2021-04-30 21:46] LABS: Bedside Glucose 198 mg/dL (70-110)
[2021-05-01] VITALS (12 sets, daily range): BP systolic 109–134; BP diastolic 63–78; PULSE 70–94; RESP 14–20; TEMP 36.7–37.1; O2SAT 77–100
[2021-05-01] MEDS: Sodium Bicarbonate 650 MG Tablet PO ×2 (05:22→13:20)
[2021-05-01] MEDS: Levothyroxine 88 MCG Tablet PO (05:22)
[2021-05-01 06:20] LABS: Absolute Lymphocyte Count 0.68 X10^3/uL (0.83-4.51); Basophil# 0.01 X10^3/uL; Basophil% 0.1 % (0-1); Hematocrit 28.5 % (40-54); Lymphocyte # 0.68 X10^3/ul (0.83-4.51); Lymphocyte % 6.6 % (19-41); Mean Corp Hgb Conc 31.6 g/dL (32-36); Mean Corpuscular Hgb 28.8 pg (27.0-32.0); Mean Corpuscular Volume 91.3 fL (80-94); Mean Platelet Vol. 12.1 fl (6.2-12.0); Monocyte# 0.46 X10^3/uL; Monocyte% 4.4 % (0-10); NRBC Flagged by Analyzer 0 % (0-5); Neutrophil # 9.04 X10^3/uL (2.7-7.7); Neutrophil % 87.4 % (47-70); Platelet Count 207 K/mm3 (150-450); RBC Distribution Width CV 14.7 % (11.6-14.6); RBC Distribution Width SD 49.2 fl (35.1-43.9); Red Blood Count 3.12 M/mm3 (4.6-6.2); White Blood Count 10.3 K/mm3 (4.4-11.0)
[2021-05-01 06:44] LABS: Anion Gap 9 (5-15); BUN 96 mg/dL (7-18); BUN/Creat Ratio 21.8 RATIO (10-20); Calcium,Total 8.1 mg/dL (8.5-10.1); Chloride 106 mmol/L (98-107); EST Glomerular Filtration Rate 14 mL/min (>60); Est Glom Filt Rate - Afr Amer 17 mL/min (>60); Estimated Creatinine Clearance 17.59 ml/min; Glucose 245 mg/dL (74-106); Potassium 4.7 mmol/L (3.5-5.1); Sodium Level 137 mmol/L (136-145)
[2021-05-01] MEDS: Ipratropium/Albuterol Sulfate 3 ML AMPUL.NEB INHALATION ×3 (07:11→15:02)
[2021-05-01] MEDS: Ondansetron 4 MG/2 ML Vial IV (08:00)
[2021-05-01] MEDS: Insulin Lispro 100 UNIT/ML INSULN.PEN 25 UNIT SC ×2 (08:34→12:14)
[2021-05-01] MEDS: Insulin Lispro 100 UNIT/ML INSULN.PEN SC ×2 (08:34→12:13)
[2021-05-01] MEDS: Enoxaparin 30 MG/0.3 ML Syringe SC (08:35)
[2021-05-01] MEDS: Amiodarone 200 MG Tablet PO (08:37)
[2021-05-01] MEDS: Aspirin E.C. 81 MG Tablet PO (08:37)
[2021-05-01] MEDS: Escitalopram Oxalate 20 MG Tablet PO (08:38)
[2021-05-01] MEDS: Allopurinol 100 MG Tablet PO (08:38)
[2021-05-01] MEDS: Atorvastatin Calcium 20 MG Tablet PO (08:39)
[2021-05-01] MEDS: Pantoprazole Sodium 40 MG Tablet PO (08:39)
[2021-05-01] MEDS: amLODIPine 5 MG Tablet PO (08:39)
[2021-05-01] MEDS: Clopidogrel Bisulfate 75 MG Tablet PO (08:39)
[2021-05-01] MEDS: Metoprolol(XL)Succ 50 MG Tablet PO (08:39)
[2021-05-01] MEDS: Finasteride 5 MG Tablet PO (08:39)
[2021-05-01] MEDS: oxyCODONE 5 MG Tablet PO (08:46)
[2021-05-01] MEDS: predniSONE 20 MG Tablet 40 MG PO (08:46)
[2021-05-01] MEDS: Cholecalciferol (VIT D3) 25 MCG TABLET (1,000 UNITS) 50 MCG PO (08:46)
[2021-05-01 08:51] LABS: Bedside Glucose 328 mg/dL (70-110)
[2021-05-01] MEDS: diazePAM 5 MG Tablet PO (08:54)
--- NOTE | 2021-05-01 10:38 | PCM.PN.INT ---
Assessment & Plan Assessment/Plan (1) Respiratory failure with hypoxia: PLAN: RECOMMENDATIONS: 1. Continue supplemental oxygen as tolerated. 2. Recommend empiric use of BiPAP with naps and nightly. 3. Continue antimicrobials, bronchodilators and steroids. 4. The patient would likely benefit from further optimization of his baseline anxiolytic regimen. Consider palliative care follow-up. 5. Medical management of hyperkalemia per nephrology recommendations. 6. Encourage incentive spirometer use and mobilize patient as tolerated. 7. The patient needs to be scheduled for a follow-up office visit in the pulmonary medicine clinic 2 weeks post discharge. 8. Okay to discharge from a pulmonary perspective when able to ambulate on 6 L or less IMPRESSIONS: 1. Acute on chronic hypoxemic respiratory failure I do suspect that this is likely multifactorial in etiology. While the patient does have advanced age COPD and also has a great deal of baseline anxiety and frequent panic attacks which is likely contributing to worsening air trapping and symptomology. In addition, the patient has heart failure with preserved ejection fraction/pulmonary hypertension and appears to have some excess volume on chest imaging. This is likely compensated poorly given his lack of compliance with NIV and renal insufficiency. However, the patient has underlying renal insufficiency, which has worsened. For now, it is reasonable to continue empiric antimicrobials along with bronchodilators and steroids. Patient can be transitioned to prednisone 40 mg and weaned over 12 to 14 days at discharge. Nephrology is currently following to assist with renal related issues. The patient would likely benefit from further optimization of his baseline anxiolytic regimen. He has been evaluated in the past by palliative care. The patient has been utilizing supplemental oxygen at his baseline at 3 L/min with exertion. Likely okay to discharge from a pulmonary perspective 2. Acute on chronic kidney disease/hyperkalemia Nephrology is currently following. Defer management accordingly. 3. History of coronary artery disease status post PCI/pulmonary hypertension Continue outpatient cardiac regimen. Consider diuretic therapy if agreeable from a renal perspective. 4. Generalized anxiety disorder/panic attacks Continue baseline Valium regimen. Given that the patient has reported increasing panic attack frequency since his , he may need further optimization of his anxiolytic therapy, as this will undoubtedly impact the stability of his breathing quality. Increased respiratory frequency will lead to turbulent airflow and exacerbate air trapping. 5. Chronic tobacco dependency, currently in remission The patient does have an extensive tobacco abuse history, but reported that he quit smoking completely approximately 3 weeks ago. Ongoing tobacco cessation was strongly recommended. 6. History of obstructive sleep apnea with PAP noncompliance While admitted to the hospital, recommend empiric utilization of BiPAP with naps and nightly. Failure to use NIV chronically likely complicates problems 1, 3 and 4. 7. Diabetes mellitus/BPH/hypothyroidism/chronic pain Complicates care, management, recovery and prognosis. Continue home medications as indicated. Subjective Subjective Patient did okay overnight. No acute issues were reported. Patient subjectively feels that he is doing well. Patient was able to walk with therapy yesterday and was tolerating room air. Patient is not reporting any significant cough. Patient reports he used BiPAP for 4 hours overnight, but this was not documented. Objective Data Objective Data Vital Signs: Vital Signs Temp Pulse Resp BP Pulse Ox 36.8 C 89 16 134/63 H 100 05/01/21 08:45 05/01/21 08:45 05/01/21 08:45 05/01/21 08:45 05/01/21 08:45 Oxygen Flow Rate (L/min) [ 2 AMBULATING with Oxygen #1] Oxygen Flow Rate (L/min) 3 Oxygen Delivery Method Room Air Weight: 96.2 kg Body Mass Index (BMI) 28.6 Intake & Output: Intake and Output for Last 24 Hours 04/29/21 04/30/21 05/01/21 23:59 23:59 23:59 Intake Total 600 / 800 2550 / 2790 420 / 420 Output Total 250 / 250 100 / 100 Balance 350 / 550 2450 / 2690 420 / 420 Lab / Micro Data Result Diagrams: 05/01/21 05:20 05/01/21 05:20 Labs: Laboratory Results - last 24 hr 04/30/21 11:48: POC Glucose 398 H 04/30/21 12:24: Sodium 136, Potassium 5.0, Chloride 109 H, Carbon Dioxide 15.0 L, Anion Gap 12, BUN 86 H, Creatinine 4.62 H, Estim Creat Clear Calc 16.75, Est GFR (MDRD) Af Amer 16 L, Est GFR (MDRD) Non-Af 14 L, BUN/Creatinine Ratio 18.6, Glucose 329 H, Calcium 8.9 04/30/21 16:30: POC Glucose 183 H 04/30/21 21:34: POC Glucose 198 H 05/01/21 05:20: WBC 10.3, RBC 3.12 L, Hgb 9.0 L, Hct 28.5 L, MCV 91.3, MCH 28.8, MCHC 31.6 L, RDW Std Deviation 49.2 H, RDW Coeff of Joana 14.7 H, Plt Count 207, MPV 12.1 H, Immature Gran % (Auto) 1.500 H, Neut % (Auto) 87.4 H, Lymph % (Auto) 6.6 L, [place] % (Auto) 4.4, Eos % (Auto) 0.0, Baso % (Auto) 0.1, Absolute Neuts (auto) 9.0 H, Absolute Lymphs (auto) 0.68 L, Nucleated RBC % 0 05/01/21 05:20: Sodium 137, Potassium 4.7, Chloride 106, Carbon Dioxide 22.0, Anion Gap 9, BUN 96 H, Creatinine 4.40 H, Estim Creat Clear Calc 17.59, Est GFR (MDRD) Af Amer 17 L, Est GFR (MDRD) Non-Af 14 L, BUN/Creatinine Ratio 21.8 H, Glucose 245 H, Calcium 8.1 L 05/01/21 08:32: POC Glucose 328 H Micro: Microbiology 04/30/21 Unknown Urine, Clean Catch Legionella Antigen - Final 04/30/21 Unknown Urine, Clean Catch Streptococcus pneumoniae Antigen (M - Final 04/28/21 08:00 Blood Culture (Wb) #2 - Other Blood Culture - Preliminary No growth in 48 hours. 04/28/21 07:07 Blood Culture (Wb) - Venous Blood Culture - Preliminary No growth in 48 hours. 04/28/21 07:12 Nasal Secretion SARS-CoV-2 Antigen (Rapid) - Final Rhythm Strip Rhythm Strip: Sinus Rhythm Rate: 89 Ectopy: None Physical Exam Const alert and no apparent distress General Appearance: cooperative HEENT normocephalic, head/scalp atraumatic and moist oral mucous membranes Eyes PERRL, EOMs intact bilaterally and conjunctivae normal Neck supple General: trachea midline Chest Chest: abnormal inspection of the chest increased A-P diameter Resp Resp Narrative: Globally diminished air movement throughout all lung [place] with prolonged expiratory phase. No wheezes, rales or rhonchi present. Effort and Inspection: able to speak in complete sentences Cardio regular rate and regular rhythm GI normal to inspection, nondistended, normoactive bowel sounds Extremity no clubbing, cyanosis or edema Skin no rashes or lesions noted Neuro CN's II-XII intact bilaterally, moves all extremities and no focal motor deficits Psych Mood & Affect: anxious Charges/Coding Visit Charges Inpatient E&M: 58276 Subs Hosp L2
[2021-05-01 12:01] LABS: Bedside Glucose 209 mg/dL (70-110)
[2021-05-01] MEDS: Ferrous Sulfate 325 MG Tablet PO (12:13)
--- NOTE | 2021-05-01 12:29 | PCM.PN.REN ---
Subjective Subjective renal fxn, potassium improved with bicarb drip. denies SOB Objective Data Objective Data Vital Signs: Vital Signs Temp Pulse Resp BP Pulse Ox 98.2 F 89 16 134/63 H 100 05/01/21 08:45 05/01/21 12:16 05/01/21 08:45 05/01/21 08:45 05/01/21 08:45 Oxygen Flow Rate (L/min) [ 2 AMBULATING with Oxygen #1] Oxygen Flow Rate (L/min) 3 Oxygen Delivery Method Room Air Weight: 96.2 kg Body Mass Index (BMI) 28.6 Intake & Output: Intake and Output for Last 24 Hours 04/29/21 04/30/21 05/01/21 23:59 23:59 23:59 Intake Total 600 / 800 2550 / 2790 2031.67 / 2031.67 Output Total 250 / 250 100 / 100 500 / 500 Balance 350 / 550 2450 / 2690 1531.67 / 1531.67 Lab / Micro Data Result Diagrams: 05/01/21 05:20 05/01/21 05:20 Labs: Laboratory Results - last 24 hr 04/30/21 12:24: Sodium 136, Potassium 5.0, Chloride 109 H, Carbon Dioxide 15.0 L, Anion Gap 12, BUN 86 H, Creatinine 4.62 H, Estim Creat Clear Calc 16.75, Est GFR (MDRD) Af Amer 16 L, Est GFR (MDRD) Non-Af 14 L, BUN/Creatinine Ratio 18.6, Glucose 329 H, Calcium 8.9 04/30/21 16:30: POC Glucose 183 H 04/30/21 21:34: POC Glucose 198 H 05/01/21 05:20: WBC 10.3, RBC 3.12 L, Hgb 9.0 L, Hct 28.5 L, MCV 91.3, MCH 28.8, MCHC 31.6 L, RDW Std Deviation 49.2 H, RDW Coeff of Joana 14.7 H, Plt Count 207, MPV 12.1 H, Immature Gran % (Auto) 1.500 H, Neut % (Auto) 87.4 H, Lymph % (Auto) 6.6 L, [place] % (Auto) 4.4, Eos % (Auto) 0.0, Baso % (Auto) 0.1, Absolute Neuts (auto) 9.0 H, Absolute Lymphs (auto) 0.68 L, Nucleated RBC % 0 05/01/21 05:20: Sodium 137, Potassium 4.7, Chloride 106, Carbon Dioxide 22.0, Anion Gap 9, BUN 96 H, Creatinine 4.40 H, Estim Creat Clear Calc 17.59, Est GFR (MDRD) Af Amer 17 L, Est GFR (MDRD) Non-Af 14 L, BUN/Creatinine Ratio 21.8 H, Glucose 245 H, Calcium 8.1 L 05/01/21 08:32: POC Glucose 328 H 05/01/21 11:56: POC Glucose 209 H Micro: Microbiology 04/30/21 Unknown Urine, Clean Catch Legionella Antigen - Final 04/30/21 Unknown Urine, Clean Catch Streptococcus pneumoniae Antigen (M - Final 04/28/21 08:00 Blood Culture (Wb) #2 - Other Blood Culture - Preliminary No growth in 48 hours. 04/28/21 07:07 Blood Culture (Wb) - Venous Blood Culture - Preliminary No growth in 48 hours. 04/28/21 07:12 Nasal Secretion SARS-CoV-2 Antigen (Rapid) - Final Rhythm Strip Rhythm Strip: Sinus Rhythm Rate: 89 Ectopy: None Physical Exam Const alert and oriented x3 Resp clear to auscultation bilaterally Cardio regular rate Extremity Extremity Narrative: mild edema on steroids Assessment & Plan Assessment/Plan (1) Acute on chronic kidney failure: QUALIFIERS: Acute renal failure type: unspecified Chronic kidney disease stage: stage 4 (severe) Qualified Code(s): N17.9 - Acute kidney failure, unspecified; N18.4 - Chronic kidney disease, stage 4 (severe) PLAN: creatinine improved to 4.4 no dialysis needed (2) CKD stage 4 due to type 2 diabetes mellitus: PLAN: Baseline creatinine mid 3's (3) Acute hyperkalemia: PLAN: treated medically, resolved (4) COPD with exacerbation: (5) Respiratory failure with hypoxia: (6) Metabolic acidosis: PLAN: Replace bicarb by mouth and through IV fluids
--- NOTE | 2021-05-01 14:31 | PCM.DC ---
Discharge Instructions Diet Discharge Diet: Renal Diet Activity Discharge Activity: Return to Normal Activity Dressing / Incision Call your doctor if you observe: Fever of 101 or Higher and Shortness of breath Follow Up Care Test Results: Test results from this visit will be discussed in further detail at your follow-up appointment, if applicable. Discharge Plan Admission Admit Date/Time: 04/28/21 08:34 Primary Reason for Your Visit: hyperkalemia Attending Provider: Jose J Tucker Primary Care Provider: Jonathan Baptiste Consulting Providers: Wellington Bonilla ; Nahun Barlow ; Loan Navarrete NP ; Daysi Magana Discharge Orders/Prescriptions Prescriptions: New sodium bicarbonate 650 mg Tablet 650 mg PO TID Qty: 90 RF: 0 prednisone 20 mg Tablet 40 mg PO BREAKFAST Qty: 4 RF: 0 levofloxacin 500 mg tablet 500 mg PO Q48H Qty: 2 RF: 0 Continued loperamide 2 mg capsule 2 mg PO Q4H PRN PRN (Reason: Constipation) RF: 0 amiodarone 200 mg tablet 200 mg PO DAILY RF: 0 metoprolol succinate 50 mg tablet extended release 24 hr 50 mg PO DAILY RF: 0 clopidogrel 75 mg tablet 75 mg PO DAILY RF: 0 amlodipine 5 mg tablet 5 mg PO DAILY RF: 0 allopurinol 100 mg tablet 100 mg PO DAILY RF: 0 aspirin 81 mg tablet,delayed release (DR/EC) 81 mg PO DAILY RF: 0 levothyroxine 88 mcg tablet 88 mcg PO DAILY RF: 0 pantoprazole 40 mg tablet,delayed release (DR/EC) 40 mg PO DAILY RF: 0 albuterol sulfate 90 mcg/actuation HFA aerosol inhaler 2 puff INHALATION 4X/DAY RF: 0 ferrous sulfate 325 mg (65 mg iron) tablet,delayed release (DR/EC) 325 mg PO DAILY RF: 0 finasteride 5 mg tablet 5 mg PO DAILY RF: 0 diazepam 5 mg tablet 5 mg PO BID RF: 0 oxycodone 5 mg tablet 5 mg PO BID RF: 0 escitalopram oxalate 20 mg tablet 20 mg PO DAILY RF: 0 insulin aspart U-100 [Novolog Flexpen U-100 Insulin] 100 unit/mL (3 mL) insulin pen 25 unit SUBCUT TID RF: 0 rosuvastatin 10 mg tablet 10 mg PO DAILY RF: 0 cholecalciferol (vitamin D3) [Vitamin D3] 50 mcg (2,000 unit) capsule 2,000 unit PO DAILY RF: 0 Tresiba FlexTouch U-100 100 unit/mL (3 mL) insulin pen 30 unit SUBCUT BID RF: 0 Narcan 4 mg/actuation spray,non-aerosol 4 mg INTRANASAL PRN PRN (Reason: Opioid Reversal) RF: 0 Discontinued sodium bicarbonate 650 mg tablet 650 mg PO DAILY RF: 0 No Action (DME) blood-glucose meter [OneTouch Verio Flex meter] Misc MISCELLANEOUS RF: 0 Referrals / Follow Up: Daysi Magana DO [STAFF PHYSICIAN] - Within 1 Month Jonathan Baptiste DO [Primary Care Provider] - Within 2 Weeks Disposition Disposition (needs filled in before D/C Order can be placed): Home, Self Care
--- NOTE | 2021-05-01 14:36 | DS.PCM_ITS ---
Providers Date of Admission: 04/28/21 Primary Care Physician: Dr. Jonathan Baptiste, Consultations 04/28/21 17:23 Consult: Electronics Worker / Pulmonary Medicine Routine Consulting Provider: Pulmonary Medicine madeline Gan Reason for Consult: acute on chronic respiratory failure EMERGENT Consult: No Notified: Yes Date Notified: 04/28/21 Time Notified: 17:23 Method of Notification: verbally by me this am. 04/28/21 19:19 Consult: Nephrology Routine Consulting Provider: Daysi Magana Reason for Consult: hyperkalemia EMERGENT Consult: No Notified: Yes Date Notified: 04/28/21 Time Notified: 19:19 Method of Notification: text per dr. Howe Reason For Visit: ACUTE RESPIRATORY FAILURE DUE TO COPD EXACERBATION Diagnosis Discharge Diagnosis (1) Acute on chronic kidney failure: Status: Chronic Code(s): N17.9 - Acute kidney failure, unspecified; N18.9 - Chronic kidney disease, unspecified Qualifiers: Acute renal failure type: unspecified Chronic kidney disease stage: stage 4 (severe) Qualified Code(s): N17.9 - Acute kidney failure, unspecified; N18.4 - Chronic kidney disease, stage 4 (severe) (2) CKD stage 4 due to type 2 diabetes mellitus: Status: Chronic Code(s): E11.22 - Type 2 diabetes mellitus with diabetic chronic kidney disease; N18.4 - Chronic kidney disease, stage 4 (severe) (3) Acute hyperkalemia: Status: Acute Code(s): E87.5 - Hyperkalemia (4) COPD with exacerbation: Status: Chronic Code(s): J44.1 - Chronic obstructive pulmonary disease with (acute) exacerbation (5) Respiratory failure with hypoxia: Status: Acute Code(s): J96.91 - Respiratory failure, unspecified with hypoxia (6) Metabolic acidosis: Status: Acute Code(s): E87.2 - Acidosis Medications at Discharge Home Medications Narcan 4 mg INTRANASAL PRN PRN 04/28/21 Tresiba FlexTouch U-100 30 unit SUBCUT BID 04/28/21 albuterol sulfate 2 puff INHALATION 4X/DAY 04/28/21 allopurinol 100 mg PO DAILY 04/28/21 amiodarone 200 mg PO DAILY 04/28/21 amlodipine 5 mg PO DAILY 04/28/21 aspirin 81 mg PO DAILY 04/28/21 blood-glucose meter [OneTouch Verio Flex meter] 04/28/21 cholecalciferol (vitamin D3) [Vitamin D3] 2,000 unit PO DAILY 04/28/21 clopidogrel 75 mg PO DAILY 04/28/21 diazepam 5 mg PO BID 04/28/21 escitalopram oxalate 20 mg PO DAILY 04/28/21 ferrous sulfate 325 mg PO DAILY 04/28/21 finasteride 5 mg PO DAILY 04/28/21 insulin aspart U-100 [Novolog Flexpen U-100 Insulin] 25 unit SUBCUT TID 04/28/21 levothyroxine 88 mcg PO DAILY 04/28/21 loperamide 2 mg PO Q4H PRN PRN 04/28/21 metoprolol succinate 50 mg PO DAILY 04/28/21 oxycodone 5 mg PO BID 04/28/21 pantoprazole 40 mg PO DAILY 04/28/21 rosuvastatin 10 mg PO DAILY 04/28/21 levofloxacin 500 mg PO Q48H #2 tab 05/01/21 prednisone 40 mg PO BREAKFAST #4 tab 05/01/21 sodium bicarbonate 650 mg PO TID #90 tab 05/01/21 Hospital Course Operations None Procedures None Summary of Care Provided Minutes Spent on Discharge: 32 Hospital Course: 5-year-old male presents with shortness of breath. Patient arrived with pulse ox around 86% and placed on the BiPAP. Was able to be weaned down to 4 L. Chest x-ray is concerning for bilateral infiltrate. Patient was started on ceftriaxone and then over to levofloxacin. [place] that he had a respiratory failure due to pneumonia as well as COPD exacerbation. Patient was put on steroids as well. His course improved from respiratory status. Complicating his picture was also had hyperkalemia that was refractory to Kayexalate. Patient was put on a bicarb drip that seemed to correct things. Patient has been put on a bicarbonate orally 3 times daily which she will need to continue at home. Patient was seen in consultation by pulmonary as well as nephrology. Physical Exam Const alert and oriented x3 Resp normal respiratory effort, no retractions, no use of accessory muscles and clear to auscultation bilaterally Cardio regular rate, regular rhythm, S1 normal heart sound and S2 normal heart sound GI normal to inspection, nondistended, normoactive bowel sounds Neuro Sensorium / Orientation: awake Weight / BMI Weight Weight: 96.2 kg Body Mass Index (BMI) 28.6 ABG / Lab / Microbiology Data Result Diagrams: 05/01/21 05:20 05/01/21 05:20 Laboratory: Laboratory Results - last 24 hr 04/30/21 16:30: POC Glucose 183 H 04/30/21 21:34: POC Glucose 198 H 05/01/21 05:20: WBC 10.3, RBC 3.12 L, Hgb 9.0 L, Hct 28.5 L, MCV 91.3, MCH 28.8, MCHC 31.6 L, RDW Std Deviation 49.2 H, RDW Coeff of Joana 14.7 H, Plt Count 207, MPV 12.1 H, Immature Gran % (Auto) 1.500 H, Neut % (Auto) 87.4 H, Lymph % (Auto) 6.6 L, [place] % (Auto) 4.4, Eos % (Auto) 0.0, Baso % (Auto) 0.1, Absolute Neuts (auto) 9.0 H, Absolute Lymphs (auto) 0.68 L, Nucleated RBC % 0 05/01/21 05:20: Sodium 137, Potassium 4.7, Chloride 106, Carbon Dioxide 22.0, Anion Gap 9, BUN 96 H, Creatinine 4.40 H, Estim Creat Clear Calc 17.59, Est GFR (MDRD) Af Amer 17 L, Est GFR (MDRD) Non-Af 14 L, BUN/Creatinine Ratio 21.8 H, Glucose 245 H, Calcium 8.1 L 05/01/21 08:32: POC Glucose 328 H 05/01/21 11:56: POC Glucose 209 H Microbiology: Microbiology 04/30/21 Unknown Urine, Clean Catch Legionella Antigen - Final 04/30/21 Unknown Urine, Clean Catch Streptococcus pneumoniae Antigen (M - Final 04/28/21 08:00 Blood Culture (Wb) #2 - Other Blood Culture - Preliminary No growth in 48 hours. 04/28/21 07:07 Blood Culture (Wb) - Venous Blood Culture - Preliminary No growth in 48 hours. 04/28/21 07:12 Nasal Secretion SARS-CoV-2 Antigen (Rapid) - Final D/C Instructions Discharge Diet: Renal Diet Call your doctor if you observe: Fever of 101 or Higher and Shortness of breath Meaningful Use Info Meaningful Use Diagnoses (Choose all that apply): None applicable Discharge Plan Admission Admit Date/Time: 04/28/21 08:34 Primary Reason for Your Visit: hyperkalemia Attending Provider: Jose J Tucker Primary Care Provider: Jonathan Baptiste Consulting Providers: Wellington Bonilla ; Nahun Barlow ; Loan Navarrete FIRE PROTECTION INSPECTOR ; Daysi Magana Discharge Orders/Prescriptions Prescriptions: New sodium bicarbonate 650 mg Tablet 650 mg PO TID Qty: 90 RF: 0 prednisone 20 mg Tablet 40 mg PO BREAKFAST Qty: 4 RF: 0 levofloxacin 500 mg tablet 500 mg PO Q48H Qty: 2 RF: 0 Continued loperamide 2 mg capsule 2 mg PO Q4H PRN PRN (Reason: Constipation) RF: 0 amiodarone 200 mg tablet 200 mg PO DAILY RF: 0 metoprolol succinate 50 mg tablet extended release 24 hr 50 mg PO DAILY RF: 0 clopidogrel 75 mg tablet 75 mg PO DAILY RF: 0 amlodipine 5 mg tablet 5 mg PO DAILY RF: 0 allopurinol 100 mg tablet 100 mg PO DAILY RF: 0 aspirin 81 mg tablet,delayed release (DR/EC) 81 mg PO DAILY RF: 0 levothyroxine 88 mcg tablet 88 mcg PO DAILY RF: 0 pantoprazole 40 mg tablet,delayed release (DR/EC) 40 mg PO DAILY RF: 0 albuterol sulfate 90 mcg/actuation HFA aerosol inhaler 2 puff INHALATION 4X/DAY RF: 0 ferrous sulfate 325 mg (65 mg iron) tablet,delayed release (DR/EC) 325 mg PO DAILY RF: 0 finasteride 5 mg tablet 5 mg PO DAILY RF: 0 diazepam 5 mg tablet 5 mg PO BID RF: 0 oxycodone 5 mg tablet 5 mg PO BID RF: 0 escitalopram oxalate 20 mg tablet 20 mg PO DAILY RF: 0 insulin aspart U-100 [Novolog Flexpen U-100 Insulin] 100 unit/mL (3 mL) insulin pen 25 unit SUBCUT TID RF: 0 rosuvastatin 10 mg tablet 10 mg PO DAILY RF: 0 cholecalciferol (vitamin D3) [Vitamin D3] 50 mcg (2,000 unit) capsule 2,000 unit PO DAILY RF: 0 Tresiba FlexTouch U-100 100 unit/mL (3 mL) insulin pen 30 unit SUBCUT BID RF: 0 Narcan 4 mg/actuation spray,non-aerosol 4 mg INTRANASAL PRN PRN (Reason: Opioid Reversal) RF: 0 Discontinued sodium bicarbonate 650 mg tablet 650 mg PO DAILY RF: 0 No Action (DME) blood-glucose meter [OneTouch Verio Flex meter] Misc MISCELLANEOUS RF: 0 Referrals / Follow Up: Daysi Magana DO [STAFF PHYSICIAN] - Within 1 Month Jonathan Baptiste DO [Primary Care Provider] - Within 2 Weeks Disposition Disposition (needs filled in before D/C Order can be placed): Home, Self Care Charges/Coding Visit Charges Inpatient E&M: 40000 Disch Hosp
--- NOTE | 2021-05-01 14:48 | CASEMGMT ---
This RN CM to room and pt is sitting up in chair. Pt states no concerns with going home at discharge and states no need for any further therapy or resources at d/c. Pt is agreeable to CCN referral and Ferny at [facility] aware. SStmarie CARVALHO CM
--- NOTE | 2021-05-01 16:08 | CCN.REFER ---
CCN REFERRAL PATIENT DOES NOT QUALIFY FOR CCN HE IS ON DIALYSIS. WILLARD Lopez RN CM NOTIFIED VIA [facility].
== END 2021-05-01 15:48 | disposition home or self-care (01) | DRG 190 ==
LOC: ED 08:29 → ICU 08:55 → PCU 04-29 15:12
PROVIDERS: Admitting Provider Student in an Organized Health Care Education/Training Program; Emergency Provider Emergency Medicine; PCP Student in an Organized Health Care Education/Training Program
DX: J44.1 Chronic obstructive pulmonary disease with (acute) exacerbation (principal); J96.21 Acute and chronic respiratory failure with hypoxia; E87.2 Acidosis; I50.30 Unspecified diastolic (congestive) heart failure; N18.4 Chronic kidney disease, stage 4 (severe); I27.20 Pulmonary hypertension, unspecified; E11.22 Type 2 diabetes mellitus with diabetic chronic kidney disease; I48.91 Unspecified atrial fibrillation; Z79.4 Long term (current) use of insulin; E78.5 Hyperlipidemia, unspecified; N40.0 Benign prostatic hyperplasia without lower urinary tract symptoms; I25.10 Atherosclerotic heart disease of native coronary artery without angina pectoris; E03.9 Hypothyroidism, unspecified; E87.5 Hyperkalemia; F41.0 Panic disorder [episodic paroxysmal anxiety]; F41.1 Generalized anxiety disorder; G89.29 Other chronic pain; Z87.891 Personal history of nicotine dependence; Z79.899 Other long term (current) drug therapy; Z79.82 Long term (current) use of aspirin; Z79.02 Long term (current) use of antithrombotics/antiplatelets; Z79.890 Hormone replacement therapy; Z91.19 Patient's noncompliance with other medical treatment and regimen
CPT/HCPCS: 36415; 36600; 71045; 80048; 82803; 82962; 83605; 83880; 84132; 84484; 85025; 87040; 87426; 87449; 93005; 94002; 94003; 94640; 97162; 97166; 97530; 97535; 99285; J7030; A4216; J0610; J2405

== ENCOUNTER 2021-05-18 09:42 | Outpatient (CLI) | payer MEDICARE, SELFPAY ==
[2021-05-18 10:20] LABS: Hematocrit 32.6 % (40-54); Hemoglobin 9.7 g/dL (13.0-16.5); Mean Corp Hgb Conc 29.8 g/dL (32-36); Mean Corpuscular Hgb 28.3 pg (27.0-32.0); Mean Platelet Vol. 11.7 fl (6.2-12.0); Platelet Count 247 K/mm3 (150-450); RBC Distribution Width CV 14.9 % (11.6-14.6); RBC Distribution Width SD 52.1 fl (35.1-43.9); Red Blood Count 3.43 M/mm3 (4.6-6.2); White Blood Count 9.6 K/mm3 (4.4-11.0)
[2021-05-18 10:38] LABS: Albumin, Serum 2.7 g/dL (3.2-5.0); BUN 63 mg/dL (7-18); BUN/Creat Ratio 12.9 RATIO (10-20); Calcium,Total 9.1 mg/dL (8.5-10.1); Chloride 114 mmol/L (98-107); Creatinine, Serum 4.89 mg/dL (0.70-1.30); EST Glomerular Filtration Rate 13 mL/min (>60); Est Glom Filt Rate - Afr Amer 15 mL/min (>60); Ferritin 82 ng/mL (26-388); Glucose 190 mg/dL (74-106); Iron 29 ug/dL (65-175); Iron Binding Capacity,Total 257 ug/dL (250-450); PERCENT IRON SATURATION 11.3 % (15.0-55.0); Phosphorus 4.8 mg/dL (2.5-4.9); Potassium 5.7 mmol/L (3.5-5.1); Sodium Level 142 mmol/L (136-145)
== END 2021-05-18 23:59 | disposition home or self-care (01) ==
LOC: LAB 09:43
PROVIDERS: PCP Student in an Organized Health Care Education/Training Program; Visit Provider Internal Medicine Nephrology
DX: E87.5 Hyperkalemia (principal); D64.9 Anemia, unspecified
CPT/HCPCS: 36415; 80069; 82728; 83540; 83550; 85027

== ENCOUNTER 2021-05-23 11:49 | Inpatient (IN) | payer MEDICARE, SELFPAY ==
[2021-05-23] VITALS (13 sets, daily range): BP systolic 98–133; BP diastolic 56–69; PULSE 56–65; RESP 12–20; TEMP 36–37.1; O2SAT 96–100; BMI 27.9; BMI 29.2
--- NOTE | 2021-05-23 12:35 | RAD_ITS ---
STUDY: X-RAY CHEST REASON FOR EXAM: Male, 65 years old. Weakness TECHNIQUE: Single AP portable view of the chest. COMPARISON: Comparison is made with prior study dated 02/26/2021. FINDINGS: EKG electrodes are seen. Small bilateral pleural effusions with bibasilar infiltration and/or atelectasis is worse in the left lower lobe. Persistent irregular density in the right upper lobe. Mild degree of CHF. There is moderate cardiac enlargement. Surgical clips are seen in the right perihilar region. Normal visualized pulmonary arteries. Normal visualized aortic arch and descending thoracic aorta. There are diffuse degenerative changes of the visualized thoracic spine. Normal visualized ribs, clavicles, and shoulders. There is no demonstrated abnormality of the visualized soft tissue structures of the upper abdomen. RAD/Chest 1 View (Portable) IMPRESSION: Small bilateral pleural effusions with bibasilar infiltration and/or atelectasis is worse at the left lung base superimposed on mild degree of CHF. Persistent increased markings in the right upper lobe. Electronically Signed: Herbert Carroll MD at 13:54 EST ,
--- NOTE | 2021-05-23 12:35 | EKG12_ITS ---
Test Reason : AB LAB Blood Pressure : / mmHG Vent. Rate : 058 BPM Atrial Rate : 058 BPM P-R Int : 272 ms QRS Dur : 098 ms QT Int : 458 ms P-R-T Axes : 059 033 095 degrees QTc Int : 449 ms Sinus bradycardia with 1st degree A-V block Nonspecific T wave abnormality Abnormal ECG Confirmed by HARSH ASIF, SARA ([id number]), scientific publications editor JARED MADRID ([id number]) on 05/24/2021 10:14:04 AM Referred By: SALEEM Confirmed By:SARA HOUSE MD
--- NOTE | 2021-05-23 13:06 | EDS_ITS ---
HPI History of Present Illness Chief Complaint: Abn Labs Informant: patient Narrative Narrative: Patient is 65-year-old male with history of chronic respiratory failure on 3 L of oxygen normally, end-stage renal disease receives intermittent hemodialysis and heart failure with reduced ejection fraction presenting with fatigue. Patient states he is feeling more tired and rundown lately. He saw his distance education coordinator today, Dr. Magana, who recommend he come to the emergency room for lab work and concern for needing dialysis again. Patient denies any specific complaints at this time. He states his distance education coordinator noticed that his leg swelling seems worse but patient has not noticed it. [facility] Medical History (Updated 05/23/21 @ 15:[address] Mellissa Ortiz, DO) Acute exacerbation of chronic obstructive pulmonary disease (COPD) Acute HFrEF (heart failure with reduced ejection fraction) Acute renal failure superimposed on stage 3 chronic kidney disease Acute renal failure superimposed on stage 4 chronic kidney disease Acute respiratory failure with hypoxemia Anemia Anemia Anemia of chronic renal failure Anxiety Atherosclerosis of coronary artery of [place] heart without angina pectoris Back pain C. difficile colitis Cancer Cancer Cardiology follow-up encounter Cholelithiasis Chronic hypoxemic respiratory failure Chronic renal failure, stage 4 (severe) Colon cancer Colon cancer COPD (chronic obstructive pulmonary disease) CPAP (continuous positive airway pressure) dependence Depression Diabetes Diabetes mellitus type 2 in obese DM type 2 causing CKD stage 4 Elevated troponin Essential (primary) hypertension Former smoker Gastric reflux Gastroenteritis Gout Heme + stool Hemorrhoids High cholesterol History of echocardiogram History of GI bleed History of IBS History of renal disease Hyperkalemia, diminished renal excretion Hyperlipidemia Hypertension Hyponatremia Hypotension, unspecified Increased PTH level Infectious encephalopathy Influenza B Injury of head and neck Insulin dependent diabetes mellitus Iron deficiency anemia Ischemic cardiomyopathy Kidney disease Low vitamin D level Lower GI bleed Metabolic acidosis Metabolic acidosis Myocardial infarct Nicotine dependence, cigarettes, in remission Nocturnal hypoxia Non-STEMI (non-ST elevated myocardial infarction) Noncompliance with CPAP treatment NSAID long-term use NSTEMI (non-ST elevated myocardial infarction) (07/2018) NSVT (nonsustained ventricular tachycardia) On home oxygen therapy LADARIUS (obstructive sleep apnea) Paroxysmal atrial fibrillation Peripheral vascular disease Pseudomembranous enterocolitis Radiculopathy affecting upper extremity Septic shock Severe sepsis Severe sepsis Shortness of breath on exertion Skin tear Sleep apnea Stage 3 severe COPD by GOLD classification Streptococcal pneumonia Uremia of renal origin Urinary retention due to benign prostatic hyperplasia Wears dentures Home Medications nitroglycerin 0.4 mg SUBLINGUAL Q5M PRN 05/14/17 [History Last Taken Unknown] oxycodone 5 mg PO BID PRN PRN 05/14/17 [History Last Taken 08/26/20] finasteride 5 mg PO DAILY 09/15/17 [History Last Taken 02/12/21] isosorbide mononitrate 30 mg PO DAILY 09/15/17 [History Last Taken 02/12/21] metoprolol succinate 50 mg PO DAILY 09/15/17 [History Last Taken 02/12/21] albuterol sulfate 1 - 2 puff INHALATION Q4H PRN PRN 05/12/18 [History Last Taken 12/05/19] diazepam 10 mg PO BID PRN 05/12/18 [History Last Taken 08/26/20] clopidogrel 75 mg PO DAILY 08/04/18 [History Last Taken 08/26/20] cilostazol 100 mg tablet 100 mg PO QHS tab 09/30/19 [History Last Taken 08/25/20] escitalopram oxalate 20 mg tablet 20 mg PO DAILY 09/30/19 [History Last Taken 08/26/20] ipratropium 0.5 mg-albuterol 3 mg (2.5 mg base)/3 mL nebulization soln 3 ml INHALATION Q4H PRN ml 09/30/19 [History Last Taken 12/07/19] levothyroxine 88 mcg PO DAILY 12/07/19 [History Last Taken 02/12/21] pantoprazole 40 mg PO DAILY 08/26/20 [History Last Taken 08/26/20] Anoro Ellipta 1 inh INHALATION Q24H 08/31/20 [History Last Taken 02/12/21] insulin aspart U-100 [Novolog Flexpen U-100 Insulin] 5 units SUBCUT TIDCM 12/25/20 [History Last Taken Unknown] Tresiba FlexTouch U-100 30 unit SUBCUT BID 04/28/21 [History Last Taken Unknown] albuterol sulfate 2 puff INHALATION 4X/DAY 04/28/21 [History Last Taken Unknown] allopurinol 100 mg PO DAILY 04/28/21 [History Last Taken Unknown] amiodarone 200 mg PO DAILY 04/28/21 [History Last Taken Unknown] amlodipine 5 mg PO DAILY 04/28/21 [History Last Taken Unknown] aspirin 81 mg PO DAILY 04/28/21 [History Last Taken Unknown] blood-glucose meter [OneTouch Verio Flex meter] 04/28/21 [History Last Taken Unknown] cholecalciferol (vitamin D3) [Vitamin D3] 2,000 unit PO DAILY 04/28/21 [History Last Taken Unknown] ferrous sulfate 325 mg PO DAILY 04/28/21 [History Last Taken Unknown] loperamide 2 mg PO Q4H PRN PRN 04/28/21 [History Last Taken Unknown] naloxone [Narcan] 4 mg INTRANASAL PRN PRN 04/28/21 [History Last Taken Unknown] rosuvastatin 10 mg PO DAILY 04/28/21 [History Last Taken Unknown] sevelamer carbonate 1,600 mg PO TIDCM 05/23/21 [History Last Taken Unknown] sodium bicarbonate 650 mg PO TID 05/23/21 [History Last Taken Unknown] Allergy/AdvReac Type Severity Reaction Status Date / Time No Known Allergies Allergy Verified 05/23/21 11:53 Family History (System 05/04/21 @ 12:20 by Jacy Balderrama) Father Leukemia Mother COPD (chronic obstructive pulmonary disease) Surgical History H/O colectomy H/O pneumonectomy History of coronary artery stent placement (02/28/21) History of esophagogastroduodenoscopy (EGD) History of left heart catheterization (02/27/21) Hx of craniotomy S/P arteriovenous (AV) fistula creation Status post colon resection Status post insertion of dialysis catheter (07/2018) Social History (System 05/04/21 @ 12:20 by Jacy Balderrama) household members: spouse housing: other details: mobile home current occupational status: disabled pets and animals: Yes pets and animals: dog(s) Smoking Status: Former smoker quit date: 02/14/17 pack-years: 40 Tobacco: How many years used: 40 second hand exposure: No alcohol intake: never substance use type: does not use ROS ROS ED Constitutional Constitutional ED: Reports other Details: Fatigue ; Denies chills or fever(s) Eyes Eyes: Denies change in vision Cardiovascular Cardiovascular: Denies chest pain Respiratory/Chest Respiratory/Chest: Reports cough and dyspnea on exertion; Denies dyspnea Gastrointestinal Gastrointestinal: Denies abdominal pain Genitourinary Genitourinary ED: Denies dysuria or hematuria Musculoskeletal Musculoskeletal: Denies arthralgias, back pain or myalgias Integumentary Denies rash Neurologic Neurologic: Reports weakness; Denies headache(s) or paresthesias EXAM Physical Exam Const Vital Signs: 05/23/21 11:51 05/23/21 12:05 05/23/21 13:15 Temperature 96.8 F L 96.8 F L 96.8 F L Temperature Source Temporal Temporal Temporal Pulse Rate 61 61 59 L Respiratory Rate 16 16 12 Blood Pressure 110/62 110/62 110/62 Blood Pressure Mean 78 78 78 Pulse Ox 97 97 98 Oxygen Delivery Method Room Air Room Air Nasal Cannula Oxygen Flow Rate (L/min) 2.5 05/23/21 13:55 05/23/21 14:11 Temperature 98.7 F Temperature Source Temporal Pulse Rate 56 L 57 L Respiratory Rate 17 13 Blood Pressure 133/63 H 98/62 Blood Pressure Mean 86 74 Pulse Ox 97 97 Oxygen Delivery Method Nasal Cannula Nasal Cannula Oxygen Flow Rate (L/min) 3 Positive well nourished, well developed and obese General Appearance ED: well developed Nutritional Appearance: obese HEENT Reports dry mucous membranes Negative for trauma Mouth ED: Yes dry mucous membranes Mouth: dry mucous membranes Eyes PERRL and EOMs intact bilaterally Neck supple General: Negative for tenderness Chest Wall inspection of chest normal Resp normal respiratory effort Resp Narrative: Crackles at the left base Auscultation: diminished lung sounds Cardio regular rate, regular rhythm and no murmurs GI normal to inspection, nondistended, normoactive bowel sounds Back/Spine no CVA tenderness Extremity Extremity Narrative: No obvious deformity. 2+ pretibial pitting edema General Extremety ED: Yes edema; Negative for tenderness General Extremity: edema Neuro oriented x3 Sensorium / Orientation: alert Motor Exam: general weakness Psych mental status grossly normal Skin no rashes or lesions noted MDM MDM MDM Narrative Medical decision making narrative: Patient evaluated for generalized fatigue. His distance education coordinator was concerned that he would require hemodialysis again. He does have a AV fistula in the left upper extremity that has a palpable thrill. Work-up is consistent with end-stage renal disease. He has a chronic anemia, elevated BUN and creatinine as well as an elevated potassium of 6.7. EKG shows normal T waves but he does have a first-degree AV block with a MA interval of 272. Patient is given hyperkalemia cocktail and will be admitted for dialysis and further management. I suspect his fatigue is associate with his uremia. Chest x-ray shows small bilateral pleural effusions and pulmonary vascular congestion. I suspect this is more of a fluid issue and not an acute pneumonia. Patient does not have infectious symptoms such as leukocytosis, fever or worsening shortness of breath. He is on his baseline oxygen. Patient admitted to the hospital service. Lab Data Attestation: I reviewed the patient's lab results. Labs: Laboratory Results - last 24 hr 05/23/21 05/23/21 05/23/21 13:30 13:30 13:30 WBC Cancelled Corrected WBC Cancelled RBC Cancelled Hgb Cancelled Hct Cancelled MCV Cancelled MCH Cancelled MCHC Cancelled RDW Std Deviation Cancelled RDW Coeff of Joana Cancelled Plt Count Cancelled MPV Cancelled Immature Gran % (Auto) Cancelled Neut % (Auto) Cancelled Lymph % (Auto) Cancelled Petroleum % (Auto) Cancelled Eos % (Auto) Cancelled Baso % (Auto) Cancelled Absolute Neuts (auto) Cancelled Absolute Lymphs (auto) Cancelled Total Counted Cancelled Neutrophils % (Manual) Cancelled Band Neutrophils % Cancelled Lymphocytes % (Manual) Cancelled Monocytes % (Manual) Cancelled Eosinophils % (Manual) Cancelled Basophils % (Manual) Cancelled Metamyelocytes % Cancelled Myelocytes % Cancelled Promyelocytes % Cancelled Blast Cells % Cancelled Plasma Cell % (Manual) Cancelled Other Cells % Cancelled Nucleated RBC % Cancelled Nucleated RBCs/100 WBC Cancelled Differential Comment Cancelled Diff Path Review Cancelled Hypersegmented Neuts Cancelled Atypical Lymphocytes Cancelled Reactive Lymphocytes Cancelled Smudge Cells Cancelled Toxic Granulation Cancelled Toxic Vacuolation Cancelled Dohle Bodies Cancelled Narciso Rods Cancelled Platelet Estimate Cancelled Plt Morphology Comment Cancelled RBC Morphology Cancelled Polychromasia Cancelled Hypochromasia Cancelled Poikilocytosis Cancelled Basophilic Stippling Cancelled Anisocytosis Cancelled Microcytosis Cancelled Macrocytosis Cancelled Spherocytes Cancelled Sickle Cells Cancelled Target Cells Cancelled Tear Drop Cells Cancelled Ovalocytes Cancelled Stomatocytes Cancelled [place] Bodies Cancelled Essence Cells Cancelled Bite Cells Cancelled Crenated Cell Cancelled Acanthocytes (Spur) Cancelled Rouleaux Cancelled Schistocytes Cancelled Sodium 143 Potassium 6.7 H* Chloride 116 H Carbon Dioxide 21.0 BUN 82 H Creatinine 5.19 H Estim Creat Clear Calc 15.37 Est GFR (MDRD) Af Amer 14 L Est GFR (MDRD) Non-Af 12 L BUN/Creatinine Ratio 15.8 Glucose 148 H Calcium 9.3 Phosphorus 5.1 H Troponin I High Sens 17 B-Natriuretic Peptide 457.8 H Albumin 2.7 L 05/23/21 14:11 WBC 7.6 Corrected WBC RBC 3.19 L Hgb 9.2 L Hct 29.9 L MCV 93.7 MCH 28.8 MCHC 30.8 L RDW Std Deviation 50.6 H RDW Coeff of Joana 14.8 H Plt Count 322 MPV 11.1 Immature Gran % (Auto) 0.900 Neut % (Auto) 78.7 H Lymph % (Auto) 12.5 L Petroleum % (Auto) 7.1 Eos % (Auto) 0.5 Baso % (Auto) 0.3 Absolute Neuts (auto) 6.0 Absolute Lymphs (auto) 0.95 Total Counted Neutrophils % (Manual) Band Neutrophils % Lymphocytes % (Manual) Monocytes % (Manual) Eosinophils % (Manual) Basophils % (Manual) Metamyelocytes % Myelocytes % Promyelocytes % Blast Cells % Plasma Cell % (Manual) Other Cells % Nucleated RBC % 0 Nucleated RBCs/100 WBC Differential Comment Diff Path Review Hypersegmented Neuts Atypical Lymphocytes Reactive Lymphocytes Smudge Cells Toxic Granulation Toxic Vacuolation Dohle Bodies Narciso Rods Platelet Estimate Plt Morphology Comment LARGE RBC Morphology Polychromasia Hypochromasia Poikilocytosis Basophilic Stippling Anisocytosis Microcytosis Macrocytosis Spherocytes Sickle Cells Target Cells Tear Drop Cells Ovalocytes Stomatocytes [place] Bodies [place] Cells Bite Cells Crenated Cell Acanthocytes (Spur) Rouleaux Schistocytes Sodium Potassium Chloride Carbon Dioxide BUN Creatinine Estim Creat Clear Calc Est GFR (MDRD) Af Amer Est GFR (MDRD) Non-Af BUN/Creatinine Ratio Glucose Calcium Phosphorus Troponin I High Sens B-Natriuretic Peptide Albumin Radiography Chest X-Ray - ED: 1 View, Read by ED Physician, Read by Radiologist, Cardiomegaly, CHF, Right Effusion and Left Effusion Diagnostic Testing: Clinical Impression(s) from Imaging Studies Chest X-Ray 05/23/21 12:35 IMPRESSION: Small bilateral pleural effusions with bibasilar infiltration and/or atelectasis is worse at the left lung base superimposed on mild degree of CHF. Persistent increased markings in the right upper lobe. Electronically Signed: Herbert Carroll MD at 13:54 EST , Rhythm Strip Rhythm Strip: Sinus Rhythm Rate: 58 Ectopy: None EKG Initial EKG: Attestation: I personally reviewed and interpreted this EKG as follows: Interpretation: Sinus Bradycardia Comments: Sinus bradycardia with a first-degree AV block at a rate of 58 MA interval 272 Normal axis Normal QRS and QTc Normal ST segment Discharge Plan Triage Chief Complaint: Abn Labs ED Provider: Mellissa Ortiz Dx/Rx/DC Orders Clinical Impression: ESRD (end stage renal disease), Acute HFrEF (heart failure with reduced ejection fraction), Acute on chronic kidney failure, Acute hypokalemia Primary Care Provider: Jonathan Baptiste Disposition Disposition: Acute Care Hospital [facility]
[2021-05-23 13:49] LABS: BNP,B-Type NATRIURETIC PEPTIDE 457.8 pg/mL (0-100)
[2021-05-23 13:56] LABS: Albumin, Serum 2.7 g/dL (3.2-5.0); BUN 82 mg/dL (7-18); BUN/Creat Ratio 15.8 RATIO (10-20); Calcium,Total 9.3 mg/dL (8.5-10.1); Chloride 116 mmol/L (98-107); Creatinine, Serum 5.19 mg/dL (0.70-1.30); EST Glomerular Filtration Rate 12 mL/min (>60); Est Glom Filt Rate - Afr Amer 14 mL/min (>60); Estimated Creatinine Clearance 15.37 ml/min; Glucose 148 mg/dL (74-106); Phosphorus 5.1 mg/dL (2.5-4.9); Potassium 6.7 mmol/L (3.5-5.1); Sodium Level 143 mmol/L (136-145); Troponin-I HS 17 pg/mL (3.0-78.0)
[2021-05-23 14:20] LABS: Absolute Lymphocyte Count 0.95 X10^3/uL (0.83-4.51); Basophil# 0.02 X10^3/uL; Basophil% 0.3 % (0-1); Eosinophil# 0.04 X10^3/uL; Eosinophils% 0.5 % (0-5); Hematocrit 29.9 % (40-54); Hemoglobin 9.2 g/dL (13.0-16.5); Lymphocyte # 0.95 X10^3/ul (0.83-4.51); Lymphocyte % 12.5 % (19-41); Mean Corp Hgb Conc 30.8 g/dL (32-36); Mean Corpuscular Hgb 28.8 pg (27.0-32.0); Mean Corpuscular Volume 93.7 fL (80-94); Mean Platelet Vol. 11.1 fl (6.2-12.0); Monocyte# 0.54 X10^3/uL; Monocyte% 7.1 % (0-10); NRBC Flagged by Analyzer 0 % (0-5); Neutrophil % 78.7 % (47-70); POSITIVE COUNT YES; Platelet Count 322 K/mm3 (150-450); RBC Distribution Width CV 14.8 % (11.6-14.6); RBC Distribution Width SD 50.6 fl (35.1-43.9); Red Blood Count 3.19 M/mm3 (4.6-6.2); White Blood Count 7.6 K/mm3 (4.4-11.0)
--- NOTE | 2021-05-23 14:27 | HP.PCM.HOS_ITS ---
HPI - General General Date of Admission: 05/23/21 HPI Narrative BARI KELLY, is a 65 M with an extensive PMH as outlined who presents via the ED on 05/23/2021 due to abnormal labs. He has ESRD and has been having dialysis. He hasnt had dialysis in 5 weeks. 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 He denied any chest pain, palpitations, dizziness, nausea or vomiting. Review of systems is otherwise negative. Vitals in the ED were BP of 98/62, AR of 57, RR of 13 and he was saturating at 97% on 3L of oxygen. BMp showed sodium of 143 nad potassium of 6.7 as well as Cr of 5.19, and BNP was 457.8. CBC was still pending. CXR shows small bilateral pleural effusion with bibasilar infiltration and/or atelectasis worse at the left lung base. He is being admitted to be managed for hyperkalemia and fluid overload as well as debility due to ESRD. [facility] Medical History (Updated 05/24/21 @ 09:[address] Daysi Magana, ) Acute exacerbation of chronic obstructive pulmonary disease (COPD) Acute HFrEF (heart failure with reduced ejection fraction) Acute renal failure superimposed on stage 3 chronic kidney disease Acute renal failure superimposed on stage 4 chronic kidney disease Acute respiratory failure with hypoxemia Anemia Anemia Anemia of chronic renal failure Anxiety Atherosclerosis of coronary artery of [place] heart without angina pectoris Back pain C. difficile colitis Cancer Cancer Cardiology follow-up encounter Cholelithiasis Chronic hypoxemic respiratory failure Chronic renal failure, stage 4 (severe) Colon cancer Colon cancer COPD (chronic obstructive pulmonary disease) CPAP (continuous positive airway pressure) dependence Depression Diabetes Diabetes mellitus type 2 in obese DM type 2 causing CKD stage 4 Elevated troponin Essential (primary) hypertension Former smoker Gastric reflux Gastroenteritis Gout Heme + stool Hemorrhoids High cholesterol History of echocardiogram History of GI bleed History of IBS History of renal disease Hyperkalemia, diminished renal excretion Hyperlipidemia Hypertension Hyponatremia Hypotension, unspecified Increased PTH level Infectious encephalopathy Influenza B Injury of head and neck Insulin dependent diabetes mellitus Iron deficiency anemia Ischemic cardiomyopathy Kidney disease Low vitamin D level Lower GI bleed Metabolic acidosis Metabolic acidosis Myocardial infarct Nicotine dependence, cigarettes, in remission Nocturnal hypoxia Non-STEMI (non-ST elevated myocardial infarction) Noncompliance with CPAP treatment NSAID long-term use NSTEMI (non-ST elevated myocardial infarction) (07/2018) NSVT (nonsustained ventricular tachycardia) On home oxygen therapy LADARIUS (obstructive sleep apnea) Paroxysmal atrial fibrillation Peripheral vascular disease Pseudomembranous enterocolitis Radiculopathy affecting upper extremity Septic shock Severe sepsis Severe sepsis Shortness of breath on exertion Skin tear Sleep apnea Stage 3 severe COPD by GOLD classification Streptococcal pneumonia Uremia of renal origin Urinary retention due to benign prostatic hyperplasia Wears dentures Home Medications nitroglycerin 0.4 mg SUBLINGUAL Q5M PRN 05/14/17 [History Last Taken Unknown] oxycodone 5 mg PO BID PRN PRN 05/14/17 [History Last Taken 08/26/20] finasteride 5 mg PO DAILY 09/15/17 [History Last Taken 02/12/21] isosorbide mononitrate 30 mg PO DAILY 09/15/17 [History Last Taken 02/12/21] metoprolol succinate 50 mg PO DAILY 09/15/17 [History Last Taken 02/12/21] albuterol sulfate 1 - 2 puff INHALATION Q4H PRN PRN 05/12/18 [History Last Taken 12/05/19] diazepam 10 mg PO BID PRN 05/12/18 [History Last Taken 08/26/20] clopidogrel 75 mg PO DAILY 08/04/18 [History Last Taken 08/26/20] cilostazol 100 mg tablet 100 mg PO QHS tab 09/30/19 [History Last Taken 08/25/20] escitalopram oxalate 20 mg tablet 20 mg PO DAILY 09/30/19 [History Last Taken 08/26/20] ipratropium 0.5 mg-albuterol 3 mg (2.5 mg base)/3 mL nebulization soln 3 ml INHALATION Q4H PRN ml 09/30/19 [History Last Taken 12/07/19] levothyroxine 88 mcg PO DAILY 12/07/19 [History Last Taken 02/12/21] pantoprazole 40 mg PO DAILY 08/26/20 [History Last Taken 08/26/20] Anoro Ellipta 1 inh INHALATION Q24H 08/31/20 [History Last Taken 02/12/21] insulin aspart U-100 [Novolog Flexpen U-100 Insulin] 5 units SUBCUT TIDCM 12/25/20 [History Last Taken Unknown] Tresiba FlexTouch U-100 30 unit SUBCUT BID 04/28/21 [History Last Taken Unknown] albuterol sulfate 2 puff INHALATION 4X/DAY 04/28/21 [History Last Taken Unknown] allopurinol 100 mg PO DAILY 04/28/21 [History Last Taken Unknown] amiodarone 200 mg PO DAILY 04/28/21 [History Last Taken Unknown] amlodipine 5 mg PO DAILY 04/28/21 [History Last Taken Unknown] aspirin 81 mg PO DAILY 04/28/21 [History Last Taken Unknown] blood-glucose meter [Dheere BoloTouch Verio Flex meter] 04/28/21 [History Last Taken Unknown] cholecalciferol (vitamin D3) [Vitamin D3] 2,000 unit PO DAILY 04/28/21 [History Last Taken Unknown] ferrous sulfate 325 mg PO DAILY 04/28/21 [History Last Taken Unknown] loperamide 2 mg PO Q4H PRN PRN 04/28/21 [History Last Taken Unknown] naloxone [Narcan] 4 mg INTRANASAL PRN PRN 04/28/21 [History Last Taken Unknown] rosuvastatin 10 mg PO DAILY 04/28/21 [History Last Taken Unknown] sevelamer carbonate 1,600 mg PO TIDCM 05/23/21 [History Last Taken Unknown] sodium bicarbonate 650 mg PO TID 05/23/21 [History Last Taken Unknown] Allergy/AdvReac Type Severity Reaction Status Date / Time No Known Allergies Allergy Verified 05/23/21 11:53 Family History (System 05/04/21 @ 12:20 by Jacy Balderrama) Father Leukemia Mother COPD (chronic obstructive pulmonary disease) Surgical History H/O colectomy H/O pneumonectomy History of coronary artery stent placement (02/28/21) History of esophagogastroduodenoscopy (EGD) History of left heart catheterization (02/27/21) Hx of craniotomy S/P arteriovenous (AV) fistula creation Status post colon resection Status post insertion of dialysis catheter (07/2018) Social History (System 05/04/21 @ 12:20 by Jacy Balderrama) household members: spouse housing: other details: mobile home current occupational status: disabled pets and animals: Yes pets and animals: dog(s) Smoking Status: Former smoker quit date: 02/14/17 pack-years: 40 Tobacco: How many years used: 40 second hand exposure: No alcohol intake: never substance use type: does not use ROS Constitutional Constitutional: Reports fatigue, malaise and weakness; Denies anorexia, change in weight, chills or fever(s) Eyes Eyes: Denies change in vision ENT HEENT: Denies dysphagia, nasal congestion or nasal discharge Respiratory/Chest Respiratory/Chest: Reports shortness of breath at rest and shortness of breath with exertion; Denies cough, dyspnea, productive cough or wheezing Gastrointestinal Gastrointestinal: Denies abdominal pain, constipation, diarrhea, nausea or vomiting Genitourinary Genitourinary: Denies burning urination or dysuria Musculoskeletal Musculoskeletal: Denies arthralgias Neurologic Neurologic: Denies confusion, dizziness, focal weakness, seizure-like activity or seizures Psychiatric Psychiatric: Denies anxiety or depression Endocrine Endocrinology: Denies change in body appearance Hematologic/Lymphatic Hematologic/Lymphatic: Denies anemia Allergic/Immunologic Allergic/Immunologic: Denies asthma Vital Signs Vital Signs Vital Signs: 05/23/21 11:51 05/23/21 12:05 05/23/21 13:15 Temperature 96.8 F L 96.8 F L 96.8 F L Temperature Source Temporal Temporal Temporal Pulse Rate 61 61 59 L Respiratory Rate 16 16 12 Blood Pressure 110/62 110/62 110/62 Blood Pressure Mean 78 78 78 Pulse Ox 97 97 98 Oxygen Delivery Method Room Air Room Air Nasal Cannula Oxygen Flow Rate (L/min) 2.5 05/23/21 13:55 05/23/21 14:11 Temperature 98.7 F Temperature Source Temporal Pulse Rate 56 L 57 L Respiratory Rate 17 13 Blood Pressure 133/63 H 98/62 Blood Pressure Mean 86 74 Pulse Ox 97 97 Oxygen Delivery Method Nasal Cannula Nasal Cannula Oxygen Flow Rate (L/min) 3 Weight Weight: 205 lb 15.162 oz Body Mass Index (BMI) 27.9 Physical Exam Const alert and oriented x3 General Appearance: cooperative Orientation / Consciousness: lethargic HEENT normocephalic, head/scalp atraumatic and hearing grossly normal bilaterally Eyes PERRL, EOMs intact bilaterally and conjunctivae normal Neck no lymphadenopathy Resp Resp Narrative: diminished breath sounds bibasally, no wheezes or crackles. On 3L of oxygen by nasal canula Cardio regular rate, regular rhythm, S1 normal heart sound, S2 normal heart sound and no murmurs GI normal to inspection, nondistended, normoactive bowel sounds, soft to palpation, non-tender and non-distended Extremity normal to inspection, full ROM and no clubbing, cyanosis or edema Extremity Narrative: AV fistula in LUE Peripheral Pulses: Yes pulses 2+ throughout Skin no rashes or lesions noted Neuro oriented x3, CN's II-XII intact bilaterally and moves all extremities Sensorium / Orientation: awake and alert Psych affect normal Results Lab / Micro Data Result Diagrams: 05/24/21 05:32 05/24/21 05:32 Labs: Laboratory Results - last 24 hr 05/23/21 13:30: WBC Cancelled, Corrected WBC Cancelled, RBC Cancelled, Hgb Cancelled, Hct Cancelled, MCV Cancelled, MCH Cancelled, MCHC Cancelled, RDW Std Deviation Cancelled, RDW Coeff of Joana Cancelled, Plt Count Cancelled, MPV C ancelled, Immature Gran % (Auto) Cancelled, Neut % (Auto) Cancelled, Lymph % (Auto) Cancelled, [place] % (Auto) Cancelled, Eos % (Auto) Cancelled, Baso % (Auto) Cancelled, Absolute Neuts (auto) Cancelled, Absolute Lymphs (auto) Cancelled, Total Counted Cancelled, Neutrophils % (Manual) Cancelled, Band Neutrophils % Cancelled, Lymphocytes % (Manual) Cancelled, Monocytes % (Manual) Cancelled, Eosinophils % (Manual) Cancelled, Basophils % (Manual) Cancelled, Metamyelocytes % Cancelled, Myelocytes % Cancelled, Promyelocytes % Cancelled, Blast Cells % Cancelled, Plasma Cell % (Manual) Cancelled, Other Cells % Cancelled, Nucleated RBC % Cancelled, Nucleated RBCs/100 WBC Cancelled, Differential Comment Cancelled, Diff Path Review Cancelled, Hypersegmented Neuts Cancelled, Atypical Lymphocytes Cancelled, Reactive Lymphocytes Cancelled, Smudge Cells Cancelled, Toxic Granulation Cancelled, Toxic Vacuolation Cancelled, Dohle Bodies Cancelled, Narciso Rods Cancelled, Platelet Estimate Cancelled, Plt Morphology Comment Cancelled, RBC Morphology Cancelled, Polychromasia Cancelled, Hypochromasia Cancelled, Poikilocytosis Cancelled, Basophilic Stippling Cancelled, Anisocytosis Cancelled, Microcytosis Cancelled, Macrocytosis Cancelled, Spherocytes Cancelled, Sickle Cells Cancelled, Target Cells Cancell ed, Tear Drop Cells Cancelled, Ovalocytes Cancelled, Stomatocytes Cancelled, [place] Bodies Cancelled, [place] Cells Cancelled, Bite Cells Cancelled, Crenated Cell Cancelled, Acanthocytes (Spur) Cancelled, Rouleaux Cancelled, Schistocytes Cancelled 05/23/21 13:30: Sodium 143, Potassium 6.7 H*, Chloride 116 H, Carbon Dioxide 21. 0, BUN 82 H, Creatinine 5.19 H, Estim Creat Clear Calc 15.37, Est GFR (MDRD) Af Amer 14 L, Est GFR (MDRD) Non-Af 12 L, BUN/Creatinine Ratio 15.8, Glucose 148 H, Calcium 9.3, Phosphorus 5.1 H, Troponin I High Sens 17, Albumin 2.7 L 05/23/21 13:30: B-Natriuretic Peptide 457.8 H Radiology Impression Chest X-Ray 05/23/21 12:35 IMPRESSION: Small bilateral pleural effusions with bibasilar infiltration and/or atelectasis is worse at the left lung base superimposed on mild degree of CHF. Persistent increased markings in the right upper lobe. Electronically Signed: Herbert Carroll MD at 13:54 EST , Assessment & Plan Assessment/Plan (1) Respiratory failure with hypoxia: (2) Acute hyperkalemia: (3) ESRD (end stage renal disease): PLAN: #Acute hyperkalemia due to msised dialysis * Potassium 6.7. Not hemolyzed. * Likely due to patient not having had dialysis for about 5 weeks. Give Kayexalate. He received hyper kalemia protocol in the ED. * Consult nephrology for dialysis * EKG showed no changes pointing towards hyperkalemia * # Chronic respiratory failure due to COPD * On 3 L of oxygen which is his baseline at home. Titrate oxygen to maintain saturation above 90%. Breathing treatments with bronchodilators. * #A. fib: On amiodarone and metoprolol #Type 2 diabetes mellitus: On Tresiba 30 units twice daily. Insulin sliding scale. Accu-Cheks AC at bedtime. #Hyperlipidemia: On statin #CAD: On aspirin and Plavix as well as statin DVT prophylaxis: Lovenox CODE STATUS:full code * Patient counseled extensively about different types of CODE STATUS including full code, DNR CCA and DNR CCA. Patient elects to be full code. * Total [id number] time 17 minutes. Charges/Coding Visit Charges Inpatient E&M: 03564 Init Hosp L3 Procedures Hospitalists Procedures: 77287 Advncd Care Plan 30 Min
[2021-05-23 14:48] LABS: Differential Indicated SCAN CRITERIA MET
[2021-05-23 14:50] LABS: Platelet Morphology LARGE
[2021-05-23] MEDS: Sodium Polystyrene Sulfonate 15 GM/60 ML UDC PO (15:08)
[2021-05-23] MEDS: Calcium Gluconate IV 3 GM in Syringe 1 EACH IV (15:11)
[2021-05-23] MEDS: Insulin Lispro 10 UNIT in Syringe 0 ML 6 UNIT IV (15:11)
--- NOTE | 2021-05-23 15:20 | CASEMGMT ---
Readmission chart review: 04/28/2021 - 05/01/2021: acute respiratory failure due to COPD exacerbation 05/23/2021 - current: hyperkalemia, fluid overload from ESRD Patient with significant history of end-stage renal disease and COPD on home oxygen. Patient receives intermittent hemodialysis but reports he has not needed dialysis for approximately 5 weeks. Patient was admitted to [facility] 04/28 - 05/01 for acute respiratory failure due to COPD exacerbation. Patient states he had a follow-up appointment with PCP after hospital discharge, as well as follow-up with epic beacon analyst Dr. Magana on 05/17/21. CCN referral was made during initial admission but patient did not qualify due to requiring dialysis treatments. Patient states he has a scheduled Palliative Care visit on 05/29/2021. Patient presented to [facility] ER on 05/23/[address] Magana after outpatient labs drawn and with complaint of fatigue. Patient readmitted for hyperkalemia and fluid overload from ESRD. BUN 82, Cr 5.19 and K+ 6.7 at time of admission. [place] [facility] [place] Teri [place] [facility] ordered oxygen 2LPM at rest and 4LPM with exertion. Patient states no concerns with going home at time of discharge and states will consider C. DEVEN SAAVEDRA to follow for any further discharge planning/needs. DEVEN Woodson CM
[2021-05-23] MEDS: Dextrose 10%-Water 250 ML 999 ML IV (15:21)
--- NOTE | 2021-05-23 21:15 | DIALYSIS ---
Dialysis complete. Ran for a total of 2 hours, line clotted x2 and venous line infiltrated. Pt states he had issues with this occuring at chronic unit as well and states they had to use heparin. Moderate swelling and some ecchymosis to upper aspect of l arm area softened and swelling improved after about 40 minutes off. UF -1150. Bp's remained stable and Dr Magana is aware of tx. See scanned records.
[2021-05-23] MEDS: Sodium Ferric Gluconat 125 MG in 0.9% Normal Saline 100 ML 110 MG IV (21:34)
[2021-05-23] MEDS: Cilostazol 50 MG Tablet 100 MG PO (21:49)
[2021-05-23] MEDS: Atorvastatin Calcium 20 MG Tablet PO (21:49)
[2021-05-23] MEDS: Sodium Bicarbonate 650 MG Tablet PO (21:49)
[2021-05-23 23:11] LABS: Bedside Glucose 116 mg/dL (74-106)
[2021-05-24] VITALS (12 sets, daily range): BP systolic 80–130; BP diastolic 49–67; PULSE 59–76; RESP 16–18; TEMP 36.7–37.3; O2SAT 93–100; BMI 29.1
[2021-05-24] MEDS: Sodium Bicarbonate 650 MG Tablet PO ×3 (05:37→22:09)
[2021-05-24] MEDS: Levothyroxine 88 MCG Tablet PO (05:37)
[2021-05-24 05:48] LABS: Absolute Lymphocyte Count 1.49 X10^3/uL (0.83-4.51); Absolute Neutrophil Count 3.1 X10^3/uL (2.0-7.7); Basophil# 0.03 X10^3/uL; Basophil% 0.6 % (0-1); Eosinophils% 3.8 % (0-5); Hematocrit 27.2 % (40-54); Hemoglobin 8.2 g/dL (13.0-16.5); Lymphocyte # 1.49 X10^3/ul (0.83-4.51); Lymphocyte % 28.1 % (19-41); Mean Corp Hgb Conc 30.1 g/dL (32-36); Mean Corpuscular Hgb 28.2 pg (27.0-32.0); Mean Corpuscular Volume 93.5 fL (80-94); Mean Platelet Vol. 10.8 fl (6.2-12.0); Monocyte# 0.42 X10^3/uL; Monocyte% 7.9 % (0-10); NRBC Flagged by Analyzer 0 % (0-5); Neutrophil # 3.08 X10^3/uL (2.7-7.7); Neutrophil % 58.1 % (47-70); Platelet Count 243 K/mm3 (150-450); RBC Distribution Width SD 51.1 fl (35.1-43.9); Red Blood Count 2.91 M/mm3 (4.6-6.2); White Blood Count 5.3 K/mm3 (4.4-11.0)
[2021-05-24 06:25] LABS: Anion Gap 5 (5-15); BUN 65 mg/dL (7-18); BUN/Creat Ratio 14.4 RATIO (10-20); Calcium,Total 8.2 mg/dL (8.5-10.1); Chloride 112 mmol/L (98-107); Creatinine, Serum 4.51 mg/dL (0.70-1.30); EST Glomerular Filtration Rate 14 mL/min (>60); Est Glom Filt Rate - Afr Amer 17 mL/min (>60); Estimated Creatinine Clearance 17.16 ml/min; Glucose 114 mg/dL (74-106); Potassium 5.6 mmol/L (3.5-5.1); Sodium Level 142 mmol/L (136-145)
[2021-05-24 06:51] LABS: Bedside Glucose 123 mg/dL (74-106)
--- NOTE | 2021-05-24 07:40 | PN.HOSP_ITS ---
Objective Data Objective Data Vital Signs: Vital Signs Temp Pulse Resp BP Pulse Ox 98.3 F 59 L 16 104/59 L 96 05/24/21 05:30 05/24/21 06:50 05/24/21 05:30 05/24/21 05:30 05/24/21 05:30 Oxygen Flow Rate (L/min) 3 Oxygen Delivery Method Nasal Cannula Weight: 95 kg Body Mass Index (BMI) 29.2 Intake & Output: Intake and Output for Last 24 Hours 05/22/21 05/23/21 05/24/21 23:59 23:59 23:59 Intake Total 390 / 490 200 / 200 Output Total 1450 / 1451 Balance -1060 / -961 199 / 199 Lab / Micro Data Result Diagrams: 05/24/21 05:32 05/24/21 05:32 Labs: Laboratory Results - last 24 hr 05/23/21 13:30: WBC Cancelled, Corrected WBC Cancelled, RBC Cancelled, Hgb Cancelled, Hct Cancelled, MCV Cancelled, MCH Cancelled, MCHC Cancelled, RDW Std Deviation Cancelled, RDW Coeff of Joana Cancelled, Plt Count Cancelled, MPV Cancelled, Immature Gran % (Auto) Cancelled, Neut % (Auto) Cancelled, Lymph % (Auto) Cancelled, [place] % (Auto) Cancelled, Eos % (Auto) Cancelled, Baso % (Auto) Cancelled, Absolute Neuts (auto) Cancelled, Absolute Lymphs (auto) Cancelled, Total Counted Cancelled, Neutrophils % (Manual) Cancelled, Band Neutrophils % Cancelled, Lymphocytes % (Manual) Cancelled, Monocytes % (Manual) Cancelled, Eosinophils % (Manual) Cancelled, Basophils % (Manual) Cancelled, Metamyelocytes % Cancelled, Myelocytes % Cancelled, Promyelocytes % Cancelled, Blast Cells % Cancelled, Plasma Cell % (Manual) Cancelled, Other Cells % Cancelled, Nucleated RBC % Cancelled, Nucleated RBCs/100 WBC Cancelled, Differential Comment Cancelled, Diff Path Review Cancelled, Hypersegmented Neuts Cancelled, Atypical Lymphocytes Cancelled, Reactive Lymphocytes Cancelled, Smudge Cells Cancelled, Toxic Granulation Cancelled, Toxic Vacuolation Cancelled, Dohle Bodies Cancelled, Narciso Rods Cancelled, Platelet Estimate Cancelled, Plt Morphology Comment Cancelled, RBC Morphology Cancelled, Polychromasia Cancelled, Hypochromasia Cancelled, Poikilocytosis Cancelled, Basophilic Stippling Cancelled, Anisocytosis Cancelled, Microcytosis Cancelled, Macrocytosis Cancelled, Spherocytes Cancelled, Sickle Cells Cancelled, Target Cells Cancelled, Tear Drop Cells Cancelled, Ovalocytes Cancelled, Stomatocytes Can celled, [place] Bodies Cancelled, [place] Cells Cancelled, Bite Cells Cancelled, Crenated Cell Cancelled, Acanthocytes (Spur) Cancelled, Rouleaux Cancelled, Schistocytes Cancelled 05/23/21 13:30: Sodium 143, Potassium 6.7 H*, Chloride 116 H, Carbon Dioxide 21.0, BUN 82 H, Creatinine 5.19 H, Estim Creat Clear Calc 15.37, Est GFR (MDRD) Af Amer 14 L, Est GFR (MDRD) Non-Af 12 L, BUN/Creatinine Ratio 15.8, Glucose 148 H, Calcium 9.3, Phosphorus 5.1 H, Troponin I High Sens 17, Albumin 2.7 L 05/23/21 13:30: B-Natriuretic Peptide 457.8 H 05/23/21 14:11: WBC 7.6, RBC 3.19 L, Hgb 9.2 L, Hct 29.9 L, MCV 93.7, MCH 28.8, MCHC 30.8 L, RDW Std Deviation 50.6 H, RDW Coeff of Joana 14.8 H, Plt Count 322, MPV 11.1, Immature Gran % (Auto) 0.900, Neut % (Auto) 78.7 H, Lymph % (Auto) 12.5 L, [place] % (Auto) 7.1, Eos % (Auto) 0.5, Baso % (Auto) 0.3, Absolute Neuts (auto) 6.0, Absolute Lymphs (auto) 0.95, Nucleated RBC % 0, Plt Morphology Comment LARGE 05/23/21 21:48: POC Glucose 116 H 05/24/21 05:32: WBC 5.3, RBC 2.91 L, Hgb 8.2 L, Hct 27.2 L, MCV 93.5, MCH 28.2, MCHC 30.1 L, RDW Std Deviation 51.1 H, RDW Coeff of Joana 15.0 H, Plt Count 243, MPV 10.8, Immature Gran % (Auto) 1.500 H, Neut % (Auto) 58.1, Lymph % (Auto) 28.1, [place] % (Auto) 7.9, Eos % (Auto) 3.8, Baso % (Auto) 0.6, Absolute Neuts (auto) 3.1, Absolute Lymphs (auto) 1.49, Nucleated RBC % 0 05/24/21 05:32: Sodium 142, Potassium 5.6 H, Chloride 112 H, Carbon Dioxide 25.0, Anion Gap 5, BUN 65 H, Creatinine 4.51 H, Estim Creat Clear Calc 17.16, Est GFR (MDRD) Af Amer 17 L, Est GFR (MDRD) Non-Af 14 L, BUN/Creatinine Ratio 14.4, Glucose 114 H, Calcium 8.2 L 05/24/21 06:36: POC Glucose 123 H Radiography Diagnostic Testing: Radiology Impression Chest X-Ray 05/23/21 12:35 IMPRESSION: Small bilateral pleural effusions with bibasilar infiltration and/or atelectasis is worse at the left lung base superimposed on mild degree of CHF. Persistent increased markings in the right upper lobe. Electronically Signed: Herbert Carroll MD at 13:54 EST , Rhythm Strip Rhythm Strip: Sinus Rhythm Rate: 58 Ectopy: None Assessment & Plan Assessment/Plan (1) Respiratory failure with hypoxia: (2) Acute hyperkalemia: (3) ESRD (end stage renal disease): PLAN: #Acute hyperkalemia due to msised dialysis * Potassium 6.7. Not hemolyzed. * Likely due to patient not having had dialysis for about 5 weeks. Give Kayexalate. He received hyper kalemia protocol in the ED. * Consult nephrology for dialysis * EKG showed no changes pointing towards hyperkalemia * # Chronic respiratory failure due to COPD * On 3 L of oxygen which is his baseline at home. Titrate oxygen to maintain saturation above 90%. Breathing treatments with bronchodilators. * #A. fib: On amiodarone and metoprolol #Type 2 diabetes mellitus: On Tresiba 30 units twice daily. Insulin sliding scale. Accu-Cheks AC at bedtime. #Hyperlipidemia: On statin #CAD: On aspirin and Plavix as well as statin DVT prophylaxis: Lovenox CODE STATUS:full code * Patient counseled extensively about different types of CODE STATUS including full code, DNR CCA and DNR CCA. Patient elects to be full code. * Total [id number] time 17 minutes.
[2021-05-24] MEDS: Allopurinol 100 MG Tablet PO (08:04)
[2021-05-24] MEDS: SEVELAMER CARBONATE 800 MG TABLET 1600 MG PO ×3 (08:04→16:18)
[2021-05-24] MEDS: Aspirin E.C. 81 MG Tablet PO (08:04)
[2021-05-24] MEDS: Ferrous Sulfate 325 MG Tablet PO (08:04)
[2021-05-24 08:05] LABS: Bedside Glucose 123 mg/dL (74-106)
[2021-05-24] MEDS: Insulin Lispro 100 UNIT/ML INSULN.PEN SC ×5 (08:05→22:05)
[2021-05-24 08:33] LABS: Hepatitis B Surface Antigen Non-Reactive (Nonreactive)
--- NOTE | 2021-05-24 08:49 | CON.PCM.RE_ITS ---
Assessment & Plan Assessment/Plan (1) CKD stage 5 due to type 2 diabetes mellitus: PLAN: Creatinine increased to 5.1 on admit progressed from CKD stage 4 to 5. Dialysis last night for mild uremic symptoms, acute hyperkalemia with weakness, bradycardia. Dialysis today. May need fistulogram for infilitration issues with dialysis (venous needle). Watch for renal recovery or determine if need to go back on dialysis. Pt recovered renal function in February and came off dialysis with last treatment on 03/12/21. (2) Acute hyperkalemia: PLAN: K 6.7 dialysis last night and schedule for today (3) Iron deficiency anemia: PLAN: iv iron, dee (4) Weakness: PLAN: due to hyperkalemia (5) Fluid overload: PLAN: monitor urine output (6) Uremia: PLAN: due to worsening renal function. Feeling better today HPI Consult Data Date of Consult: 05/24/21 HPI Narrative HPI Narrative: BARI KELLY, is a 65 M who presents [facility] Medical History (Updated 05/24/21 @ 09:[address] Daysi Magana, ) Acute exacerbation of chronic obstructive pulmonary disease (COPD) Acute HFrEF (heart failure with reduced ejection fraction) Acute renal failure superimposed on stage 3 chronic kidney disease Acute renal failure superimposed on stage 4 chronic kidney disease Acute respiratory failure with hypoxemia Anemia Anemia Anemia of chronic renal failure Anxiety Atherosclerosis of coronary artery of [place] heart without angina pectoris Back pain C. difficile colitis Cancer Cancer Cardiology follow-up encounter Cholelithiasis Chronic hypoxemic respiratory failure Chronic renal failure, stage 4 (severe) Colon cancer Colon cancer COPD (chronic obstructive pulmonary disease) CPAP (continuous positive airway pressure) dependence Depression Diabetes Diabetes mellitus type 2 in obese DM type 2 causing CKD stage 4 Elevated troponin Essential (primary) hypertension Former smoker Gastric reflux Gastroenteritis Gout Heme + stool Hemorrhoids High cholesterol History of echocardiogram History of GI bleed History of IBS History of renal disease Hyperkalemia, diminished renal excretion Hyperlipidemia Hypertension Hyponatremia Hypotension, unspecified Increased PTH level Infectious encephalopathy Influenza B Injury of head and neck Insulin dependent diabetes mellitus Iron deficiency anemia Ischemic cardiomyopathy Kidney disease Low vitamin D level Lower GI bleed Metabolic acidosis Metabolic acidosis Myocardial infarct Nicotine dependence, cigarettes, in remission Nocturnal hypoxia Non-STEMI (non-ST elevated myocardial infarction) Noncompliance with CPAP treatment NSAID long-term use NSTEMI (non-ST elevated myocardial infarction) (07/2018) NSVT (nonsustained ventricular tachycardia) On home oxygen therapy LADARIUS (obstructive sleep apnea) Paroxysmal atrial fibrillation Peripheral vascular disease Pseudomembranous enterocolitis Radiculopathy affecting upper extremity Septic shock Severe sepsis Severe sepsis Shortness of breath on exertion Skin tear Sleep apnea Stage 3 severe COPD by GOLD classification Streptococcal pneumonia Uremia of renal origin Urinary retention due to benign prostatic hyperplasia Wears dentures Home Medications nitroglycerin 0.4 mg SUBLINGUAL Q5M PRN 05/14/17 [History Last Taken Unknown] oxycodone 5 mg PO BID PRN PRN 05/14/17 [History Last Taken 08/26/20] finasteride 5 mg PO DAILY 09/15/17 [History Last Taken 02/12/21] isosorbide mononitrate 30 mg PO DAILY 09/15/17 [History Last Taken 02/12/21] metoprolol succinate 50 mg PO DAILY 09/15/17 [History Last Taken 02/12/21] albuterol sulfate 1 - 2 puff INHALATION Q4H PRN PRN 05/12/18 [History Last Taken 12/05/19] diazepam 10 mg PO BID PRN 05/12/18 [History Last Taken 08/26/20] clopidogrel 75 mg PO DAILY 08/04/18 [History Last Taken 08/26/20] cilostazol 100 mg tablet 100 mg PO QHS tab 09/30/19 [History Last Taken 08/25/20] escitalopram oxalate 20 mg tablet 20 mg PO DAILY 09/30/19 [History Last Taken 08/26/20] ipratropium 0.5 mg-albuterol 3 mg (2.5 mg base)/3 mL nebulization soln 3 ml INHALATION Q4H PRN ml 09/30/19 [History Last Taken 12/07/19] levothyroxine 88 mcg PO DAILY 12/07/19 [History Last Taken 02/12/21] pantoprazole 40 mg PO DAILY 08/26/20 [History Last Taken 08/26/20] Anoro Ellipta 1 inh INHALATION Q24H 08/31/20 [History Last Taken 02/12/21] insulin aspart U-100 [Novolog Flexpen U-100 Insulin] 5 units SUBCUT TIDCM 12/25/20 [History Last Taken Unknown] Tresiba FlexTouch U-100 30 unit SUBCUT BID 04/28/21 [History Last Taken Unknown] albuterol sulfate 2 puff INHALATION 4X/DAY 04/28/21 [History Last Taken Unknown] allopurinol 100 mg PO DAILY 04/28/21 [History Last Taken Unknown] amiodarone 200 mg PO DAILY 04/28/21 [History Last Taken Unknown] amlodipine 5 mg PO DAILY 04/28/21 [History Last Taken Unknown] aspirin 81 mg PO DAILY 04/28/21 [History Last Taken Unknown] blood-glucose meter [[place] - It's what's in storeuch Verio Flex meter] 04/28/21 [History Last Taken Unknown] cholecalciferol (vitamin D3) [Vitamin D3] 2,000 unit PO DAILY 04/28/21 [History Last Taken Unknown] ferrous sulfate 325 mg PO DAILY 04/28/21 [History Last Taken Unknown] loperamide 2 mg PO Q4H PRN PRN 04/28/21 [History Last Taken Unknown] naloxone [Narcan] 4 mg INTRANASAL PRN PRN 04/28/21 [History Last Taken Unknown] rosuvastatin 10 mg PO DAILY 04/28/21 [History Last Taken Unknown] sevelamer carbonate 1,600 mg PO TIDCM 05/23/21 [History Last Taken Unknown] sodium bicarbonate 650 mg PO TID 05/23/21 [History Last Taken Unknown] Allergy/AdvReac Type Severity Reaction Status Date / Time No Known Allergies Allergy Verified 05/23/21 11:53 Family History (System 05/04/21 @ 12:20 by Jacy Balderrama) Father Leukemia Mother COPD (chronic obstructive pulmonary disease) Surgical History H/O colectomy H/O pneumonectomy History of coronary artery stent placement (02/28/21) History of esophagogastroduodenoscopy (EGD) History of left heart catheterization (02/27/21) Hx of craniotomy S/P arteriovenous (AV) fistula creation Status post colon resection Status post insertion of dialysis catheter (07/2018) Social History (System 05/04/21 @ 12:20 by Jacy Balderrama) household members: spouse housing: other details: mobile home current occupational status: disabled pets and animals: Yes pets and animals: dog(s) Smoking Status: Former smoker quit date: 02/14/17 pack-years: 40 Tobacco: How many years used: 40 second hand exposure: No alcohol intake: never substance use type: does not use Lab / Micro Data Result Diagrams: 05/24/21 05:32 05/24/21 05:32 Labs: Laboratory Results - last 24 hr 05/23/21 13:30: WBC Cancelled, Corrected WBC Cancelled, RBC Cancelled, Hgb Cancelled, Hct Cancelled, MCV Cancelled, MCH Cancelled, MCHC Cancelled, RDW Std Deviation Cancelled, RDW Coeff of Joana Cancelled, Plt Count Cancelled, MPV Cancelled, Immature Gran % (Auto) Cancelled, Neut % (Auto) Cancelled, Lymph % (Auto) Cancelled, Hood % (Auto) Cancelled, Eos % (Auto) Cancelled, Baso % (Auto) Cancelled, Absolute Neuts (auto) Cancelled, Absolute Lymphs (auto) Cancelled, Total Counted Cancelled, Neutrophils % (Manual) Cancelled, Band Neutrophils % Cancelled, Lymphocytes % (Manual) Cancelled, Monocytes % (Manual) Cancelled, Eosinophils % (Manual) Cancelled, Basophils % (Manual) Cancelled, Metamyelocytes % Cancelled, Myelocytes % Cancelled, Promyelocytes % Cancelled, Blast Cells % Cancelled, Plasma Cell % (Manual) Cancelled, Other Cells % Cancelled, Nucleated RBC % Cancelled, Nucleated RBCs/100 WBC Cancelled, Differential Comment Cancelled, Diff Path Review Cancelled, Hypersegmented Neuts Cancelled, Atypical Lymphocytes Cancelled, Reactive Lymphocytes Cancelled, Smudge Cells Cancelled, Toxic Granulation Cancelled, Toxic Vacuolation Cancelled, Dohle Bodies Cancelled, Narciso Rods Cancelled, Platelet Estimate Cancelled, Plt Morphology Comment Cancelled, RBC Morphology Cancelled, Polychromasia Cancelled, Hypochromasia Cancelled, Poikilocytosis Cancelled, Basophilic Stippling Cancelled, Anisocytosis Cancelled, Microcytosis Cancelled, Macrocytosis Cancelled, Spherocytes Cancelled, Sickle Cells Cancelled, Target Cells Cancelled, Tear Drop Cells Cancelled, Ovalocytes Cancelled, Stomatocytes Cancelled, [place] Bodies Cancelled, [place] Cells Cancelled, Bite Cells Can celled, Crenated Cell Cancelled, Acanthocytes (Spur) Cancelled, Rouleaux Cancelled, Schistocytes Cancelled 05/23/21 13:30: Sodium 143, Potassium 6.7 H*, Chloride 116 H, Carbon Dioxide 21.0, BUN 82 H, Creatinine 5.19 H, Estim Creat Clear Calc 15.37, Est GFR (MDRD) Af Amer 14 L, Est GFR (MDRD) Non-Af 12 L, BUN/Creatinine Ratio 15.8, Glucose 148 H, Calcium 9.3, Phosphorus 5.1 H, Troponin I High Sens 17, Albumin 2.7 L 05/23/21 13:30: B-Natriuretic Peptide 457.8 H 05/23/21 14:11: WBC 7.6, RBC 3.19 L, Hgb 9.2 L, Hct 29.9 L, MCV 93.7, MCH 28.8, MCHC 30.8 L, RDW Std Deviation 50.6 H, RDW Coeff of Joana 14.8 H, Plt Count 322, MPV 11.1, Immature Gran % (Auto) 0.900, Neut % (Auto) 78.7 H, Lymph % (Auto) 12.5 L, Hood % (Auto) 7.1, Eos % (Auto) 0.5, Baso % (Auto) 0.3, Absolute Neuts (auto) 6.0, Absolute Lymphs (auto) 0.95, Nucleated RBC % 0, Plt Morphology Comment LARGE 05/23/21 21:48: POC Glucose 116 H 05/24/21 05:32: WBC 5.3, RBC 2.91 L, Hgb 8.2 L, Hct 27.2 L, MCV 93.5, MCH 28.2, MCHC 30.1 L, RDW Std Deviation 51.1 H, RDW Coeff of Joana 15.0 H, Plt Count 243, MPV 10.8, Immature Gran % (Auto) 1.500 H, Neut % (Auto) 58.1, Lymph % (Auto) 28.1, Hood % (Auto) 7.9, Eos % (Auto) 3.8, Baso % (Auto) 0.6, Absolute Neuts (auto) 3.1, Absolute Lymphs (auto) 1.49, Nucleated RBC % 0 05/24/21 05:32: Sodium 142, Potassium 5.6 H, Chloride 112 H, Carbon Dioxide 25.0, Anion Gap 5, BUN 65 H, Creatinine 4.51 H, Estim Creat Clear Calc 17.16, Est GFR (MDRD) Af Amer 17 L, Est GFR (MDRD) Non-Af 14 L, BUN/Creatinine Ratio 14.4, Glucose 114 H, Calcium 8.2 L 05/24/21 05:32: Hep Bs Antigen Non-Reactive 05/24/21 06:36: POC Glucose 123 H 05/24/21 07:47: POC Glucose 123 H Rhythm Strip Rhythm Strip: Sinus Rhythm Rate: 58 Ectopy: None Radiology Impression Chest X-Ray 05/23/21 12:35 IMPRESSION: Small bilateral pleural effusions with bibasilar infiltration and/or atelectasis is worse at the left lung base superimposed on mild degree of CHF. Persistent increased markings in the right upper lobe. Electronically Signed: Herbert Carroll MD at 13:54 EST ,
[2021-05-24] MEDS: Epoetin Alfa epbx 10,000 UNITS/ML 10000 UNIT SC (09:49)
--- NOTE | 2021-05-24 09:51 | PCM.PN.HOSP ---
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 Patient has apparently not needed dialysis for the past 5 weeks. Patient on admission was found to have potassium of 6.7 BUN of 82 and creatinine of 5.19. Admitted to monitored bed with initiation of emergency dialysis Objective Data Objective Data Vital Signs: Vital Signs Temp Pulse Resp BP Pulse Ox 98.3 F 59 L 16 104/59 L 96 05/24/21 05:30 05/24/21 06:50 05/24/21 05:30 05/24/21 05:30 05/24/21 05:30 Oxygen Flow Rate (L/min) 3 Oxygen Delivery Method Nasal Cannula Weight: 95 kg Body Mass Index (BMI) 29.2 Intake & Output: Intake and Output for Last 24 Hours 05/22/21 05/23/21 05/24/21 23:59 23:59 23:59 Intake Total 390 / 490 200 / 200 Output Total 1450 / 1451 Balance -1060 / -961 199 / 199 Lab / Micro Data Result Diagrams: 05/24/21 05:32 05/24/21 05:32 Labs: Laboratory Results - last 24 hr 05/23/21 13:30: WBC Cancelled, Corrected WBC Cancelled, RBC Cancelled, Hgb Cancelled, Hct Cancelled, MCV Cancelled, MCH Cancelled, MCHC Cancelled, RDW Std Deviation Cancelled, RDW Coeff of Joana Cancelled, Plt Count Cancelled, MPV Cancelled, Immature Gran % (Auto) Cancelled, Neut % (Auto) Cancelled, Lymph % (Auto) Cancelled, [place] % (Auto) Cancelled, Eos % (Auto) Cancelled, Baso % (Auto) Cancelled, Absolute Neuts (auto) Cancelled, Absolute Lymphs (auto) Cancelled, Total Counted Cancelled, Neutrophils % (Manual) Cancelled, Band Neutrophils % Cancelled, Lymphocytes % (Manual) Cancelled, Monocytes % (Manual) Cancelled, Eosinophils % (Manual) Cancelled, Basophils % (Manual) Cancelled, Metamyelocytes % Cancelled, Myelocytes % Cancelled, Promyelocytes % Cancelled, Blast Cells % Cancelled, Plasma Cell % (Manual) Cancelled, Other Cells % Cancelled, Nucleated RBC % Cancelled, Nucleated RBCs/100 WBC Cancelled, Differential Comment Cancelled, Diff Path Review Cancelled, Hypersegmented Neuts Cancelled, Atypical Lymphocytes Cancelled, Reactive Lymphocytes Cancelled, Smudge Cells Cancelled, Toxic Granulation Cancelled, Toxic Vacuolation Cancelled, Dohle Bodies Cancelled, Narciso Rods Cancelled, Platelet Estimate Cancelled, Plt Morphology Comment Cancelled, RBC Morphology Cancelled, Polychromasia Cancelled, Hypochromasia Cancelled, Poikilocytosis Cancelled, Basophilic Stippling Cancelled, Anisocytosis Cancelled, Microcytosis Cancelled, Macrocytosis Cancelled, Spherocytes Cancelled, Sickle Cells Cancelled, Target Cells Cancelled, Tear Drop Cells Cancelled, Ovalocytes Cancelled, Stomatocytes Cancelled, [place] Bodies Cancelled, [place] Cells Cancelled, Bite Cells Cancelled, Crenated Cell Cancelled, Acanthocytes (Spur) Cancelled, Rouleaux Cancelled, Schistocytes Cancelled 05/23/21 13:30: Sodium 143, Potassium 6.7 H*, Chloride 116 H, Carbon Dioxide 21.0, BUN 82 H, Creatinine 5.19 H, Estim Creat Clear Calc 15.37, Est GFR (MDRD) Af Amer 14 L, Est GFR (MDRD) Non-Af 12 L, BUN/Creatinine Ratio 15.8, Glucose 148 H, Calcium 9.3, Phosphorus 5.1 H, Troponin I High Sens 17, Albumin 2.7 L 05/23/21 13:30: B-Natriuretic Peptide 457.8 H 05/23/21 14:11: WBC 7.6, RBC 3.19 L, Hgb 9.2 L, Hct 29.9 L, MCV 93.7, MCH 28.8, MCHC 30.8 L, RDW Std Deviation 50.6 H, RDW Coeff of Joana 14.8 H, Plt Count 322, MPV 11.1, Immature Gran % (Auto) 0.900, Neut % (Auto) 78.7 H, Lymph % (Auto) 12.5 L, [place] % (Auto) 7.1, Eos % (Auto) 0.5, Baso % (Auto) 0.3, Absolute Neuts (auto) 6.0, Absolute Lymphs (auto) 0.95, Nucleated RBC % 0, Plt Morphology Comment LARGE 05/23/21 21:48: POC Glucose 116 H 05/24/21 05:32: WBC 5.3, RBC 2.91 L, Hgb 8.2 L, Hct 27.2 L, MCV 93.5, MCH 28.2, MCHC 30.1 L, RDW Std Deviation 51.1 H, RDW Coeff of Joana 15.0 H, Plt Count 243, MPV 10.8, Immature Gran % (Auto) 1.500 H, Neut % (Auto) 58.1, Lymph % (Auto) 28.1, [place] % (Auto) 7.9, Eos % (Auto) 3.8, Baso % (Auto) 0.6, Absolute Neuts (auto) 3.1, Absolute Lymphs (auto) 1.49, Nucleated RBC % 0 05/24/21 05:32: Sodium 142, Potassium 5.6 H, Chloride 112 H, Carbon Dioxide 25.0, Anion Gap 5, BUN 65 H, Creatinine 4.51 H, Estim Creat Clear Calc 17.16, Est GFR (MDRD) Af Amer 17 L, Est GFR (MDRD) Non-Af 14 L, BUN/Creatinine Ratio 14.4, Glucose 114 H, Calcium 8.2 L 05/24/21 05:32: Hep Bs Antigen Non-Reactive 05/24/21 06:36: POC Glucose 123 H 05/24/21 07:47: POC Glucose 123 H Radiography Diagnostic Testing: Radiology Impression Chest X-Ray 05/23/21 12:35 IMPRESSION: Small bilateral pleural effusions with bibasilar infiltration and/or atelectasis is worse at the left lung base superimposed on mild degree of CHF. Persistent increased markings in the right upper lobe. Electronically Signed: Herbert Carroll MD at 13:54 EST , Rhythm Strip Rhythm Strip: Sinus Rhythm Rate: 58 Ectopy: None Physical Exam Narrative GENERAL: Cooperative HEENT: Atraumatic; moist oral mucosa EYES; Anicteric, Normal Conjunctiva NECK; supple, normal thyroid, RESPIRATORY: Diminished to auscultation bilaterally, CARDIOVASCULAR: Regular S1 S2, GI: soft, non-tender, normoactive bowel sounds, : No Renal angle tenderness; EXTREMITIES: edema, no clubbing, no cyanosis. MUSCULOSKELETAL: No Joint Tenderness; NEURO: Awake; no lateralizing signs. 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 Patient has apparently not needed dialysis for the past 5 weeks. Patient on admission was found to have potassium of 6.7 BUN of 82 and creatinine of 5.19. Admitted to monitored bed with initiation of emergency dialysis 1. Hyperkalemia ?Due to worsening kidney function. Patient has apparently not required dialysis for the past 5 weeks. Admitted to monitored bed patient did receive Kayexalate and consult placed to nephrology for initiation of dialysis. Subsequent monitoring with daily BMPs ordered 2. End-stage renal disease ?Patient has an AV fistula however per discussion with patient's leather goods sales representative Dr. Magana patient has not required any dialysis for the past [address] Daysi Magana to decide if patient will need chronic dialysis ongoing 3. Chronic hypoxic respiratory failure - to COPD patient is on baseline home O2 did continue 4. Paroxysmal A. fib ?Rate controlled on amiodarone and metoprolol 5. Diabetes mellitus type 2 ?Patient is on Tresiba 30 units twice daily this was continued in addition to sliding scale coverage 6. Coronary artery disease ?With previous CABG and subsequent stent placement did continue with patient home meds 7. Dyslipidemia -Patient is on statin therapy, continued at home dose 8. History of colon cancer ?Status post subtotal colectomy patient has remained in remission following his surgery 9. History of right lung benign tumor ?Status post partial right pneumonectomy 10. Obstructive sleep apnea ?With history of noncompliance with CPAP 11. Hypertension - Blood pressure controlled, home medications continued with dose adjustment as needed 12. Gout ?Patient on allopurinol 13. Overweight with BMI of 29.2 14. Hypothyroidism - Patient is on levothyroxine home dose continued 15. GERD ?Patient is on PPI 16. BPH ?Currently stable 17. DVT prophylaxis ?On Lovenox dose adjusted for kidney function 18. Anemia - Secondary to chronic disorder/anemia secondary to end-stage renal disease monitoring H&H and transfuse if patient becomes symptomatic or hemoglobin falls below 7 Charges/Coding Visit Charges Inpatient E&M: 98917 Subs Hosp L3
[2021-05-24] MEDS: 0.9% Saline Lock 10 ML Syringe IV (10:39)
[2021-05-24] MEDS: Cholecalciferol (VIT D3) 25 MCG TABLET (1,000 UNITS) 50 MCG PO (10:55)
[2021-05-24] MEDS: Pantoprazole Sodium 40 MG Tablet PO (10:55)
[2021-05-24] MEDS: Amiodarone 200 MG Tablet PO (10:55)
[2021-05-24] MEDS: Finasteride 5 MG Tablet PO (10:55)
[2021-05-24] MEDS: Clopidogrel Bisulfate 75 MG Tablet PO (10:55)
[2021-05-24] MEDS: Escitalopram Oxalate 20 MG Tablet PO (10:56)
[2021-05-24 11:41] LABS: Bedside Glucose 112 mg/dL (74-106)
[2021-05-24] MEDS: Sodium Polystyrene Sulfonate 15 GM/60 ML UDC 30 GM PO (16:18)
[2021-05-24 16:31] LABS: Bedside Glucose 191 mg/dL (74-106)
[2021-05-24] MEDS: Atorvastatin Calcium 20 MG Tablet PO (22:09)
[2021-05-24 22:21] LABS: Bedside Glucose 179 mg/dL (74-106)
[2021-05-25] VITALS (12 sets, daily range): BP systolic 109–118; BP diastolic 62–71; PULSE 68–93; RESP 16–18; TEMP 36.5–36.9; O2SAT 95–98
[2021-05-25 05:08] LABS: Hematocrit 26.6 % (40-54); Hemoglobin 7.8 g/dL (13.0-16.5); Mean Corp Hgb Conc 29.3 g/dL (32-36); Mean Corpuscular Hgb 27.8 pg (27.0-32.0); Mean Corpuscular Volume 94.7 fL (80-94); Platelet Count 248 K/mm3 (150-450); RBC Distribution Width CV 15.1 % (11.6-14.6); RBC Distribution Width SD 52.3 fl (35.1-43.9); Red Blood Count 2.81 M/mm3 (4.6-6.2); White Blood Count 5.8 K/mm3 (4.4-11.0)
--- NOTE | 2021-05-25 05:35 | CON.PCM.SX_ITS ---
Assessment & Plan Assessment/Plan (1) Problem with dialysis access: QUALIFIERS: Encounter type: initial encounter Qualified Code(s): T82.898A - Other specified complication of vascular prosthetic devices, implants and grafts, initial encounter PLAN: The patient has a transposed left upper arm basilic vein to brachial artery AV fistula which has a strong pulse thrill and bruit. He has a significant infiltration involving the left upper arm. My concern is that despite proceeding with a fistulogram that due to the amount of infiltration present and if ultrasound guidance continues not to be utilized to assist with accessing the fistula then the patient will additionally need a more urgent access route. Unfortunately I suspect he will need to have tunneled dialysis catheters. I have instructed him on this. I can certainly perform a left upper arm fistulogram with possible endovascular intervention. I have instructed him that we likely will proceed with tunneled dialysis catheter placement as well so that we do not end up this evening with further information that the fistula cannot be accessed. We will schedule and proceed as noted. Enoch Dick M.D., F.A.C.S. HPI Consult Data Date of Consult: 05/25/21 HPI Narrative HPI Narrative: BARI KELLY, is a 65 M who presents with hyperkalemia and worsening renal failure. I been asked to see him by Dr. Daysi Magana because of infiltration of his left upper arm AV fistula. Written copy my surgical consult will be present in the charting. On February 12, 2021 I performed stage II transposition left upper extremity basilic vein to brachial artery arteriovenous hemodialysis fistula creation. By all reports from Dr. Daysi Magana and nursing staff the fistula has a wonderful pulse thrill and bruit. Hercules susana on May 23 he was accessed and ran for 2 hours but was infiltrated during dialysis. Apparently yesterday access only pulled clots however the fistula continues to have a strong pulse thrill and bruit. It is likely the needle was not even in the fistula. My understanding is that ultrasound has not been utilized to help guide the access. Is also my understanding that several weeks ago he was hospitalized and had an IV placed in his left upper extremity as well. [facility] Medical History (Updated 05/25/21 @ 05:[address] Enoch Dick MD) Acute exacerbation of chronic obstructive pulmonary disease (COPD) Acute HFrEF (heart failure with reduced ejection fraction) Acute renal failure superimposed on stage 3 chronic kidney disease Acute renal failure superimposed on stage 4 chronic kidney disease Acute respiratory failure with hypoxemia Anemia Anemia Anemia of chronic renal failure Anxiety Atherosclerosis of coronary artery of [place] heart without angina pectoris Back pain C. difficile colitis Cancer Cancer Cardiology follow-up encounter Cholelithiasis Chronic hypoxemic respiratory failure Chronic renal failure, stage 4 (severe) Colon cancer Colon cancer COPD (chronic obstructive pulmonary disease) CPAP (continuous positive airway pressure) dependence Depression Diabetes Diabetes mellitus type 2 in obese DM type 2 causing CKD stage 4 Elevated troponin Essential (primary) hypertension Former smoker Gastric reflux Gastroenteritis Gout Heme + stool Hemorrhoids High cholesterol History of echocardiogram History of GI bleed History of IBS History of renal disease Hyperkalemia, diminished renal excretion Hyperlipidemia Hypertension Hyponatremia Hypotension, unspecified Increased PTH level Infectious encephalopathy Influenza B Injury of head and neck Insulin dependent diabetes mellitus Iron deficiency anemia Ischemic cardiomyopathy Kidney disease Low vitamin D level Lower GI bleed Metabolic acidosis Metabolic acidosis Myocardial infarct Nicotine dependence, cigarettes, in remission Nocturnal hypoxia Non-STEMI (non-ST elevated myocardial infarction) Noncompliance with CPAP treatment NSAID long-term use NSTEMI (non-ST elevated myocardial infarction) (07/2018) NSVT (nonsustained ventricular tachycardia) On home oxygen therapy LADARIUS (obstructive sleep apnea) Paroxysmal atrial fibrillation Peripheral vascular disease Pseudomembranous enterocolitis Radiculopathy affecting upper extremity Septic shock Severe sepsis Severe sepsis Shortness of breath on exertion Skin tear Sleep apnea Stage 3 severe COPD by GOLD classification Streptococcal pneumonia Uremia of renal origin Urinary retention due to benign prostatic hyperplasia Wears dentures Home Medications nitroglycerin 0.4 mg SUBLINGUAL Q5M PRN 05/14/17 [History Last Taken Unknown] oxycodone 5 mg PO BID PRN PRN 05/14/17 [History Last Taken 08/26/20] finasteride 5 mg PO DAILY 09/15/17 [History Last Taken 02/12/21] isosorbide mononitrate 30 mg PO DAILY 09/15/17 [History Last Taken 02/12/21] metoprolol succinate 50 mg PO DAILY 09/15/17 [History Last Taken 02/12/21] albuterol sulfate 1 - 2 puff INHALATION Q4H PRN PRN 05/12/18 [History Last Taken 12/05/19] diazepam 10 mg PO BID PRN 05/12/18 [History Last Taken 08/26/20] clopidogrel 75 mg PO DAILY 08/04/18 [History Last Taken 08/26/20] cilostazol 100 mg tablet 100 mg PO QHS tab 09/30/19 [History Last Taken 08/25/20] escitalopram oxalate 20 mg tablet 20 mg PO DAILY 09/30/19 [History Last Taken 08/26/20] ipratropium 0.5 mg-albuterol 3 mg (2.5 mg base)/3 mL nebulization soln 3 ml INHALATION Q4H PRN ml 09/30/19 [History Last Taken 12/07/19] levothyroxine 88 mcg PO DAILY 12/07/19 [History Last Taken 02/12/21] pantoprazole 40 mg PO DAILY 08/26/20 [History Last Taken 08/26/20] Anoro Ellipta 1 inh INHALATION Q24H 08/31/20 [History Last Taken 02/12/21] insulin aspart U-100 [Novolog Flexpen U-100 Insulin] 5 units SUBCUT TIDCM 12/25/20 [History Last Taken Unknown] Tresiba FlexTouch U-100 30 unit SUBCUT BID 04/28/21 [History Last Taken Unknown] albuterol sulfate 2 puff INHALATION 4X/DAY 04/28/21 [History Last Taken Unknown] allopurinol 100 mg PO DAILY 04/28/21 [History Last Taken Unknown] amiodarone 200 mg PO DAILY 04/28/21 [History Last Taken Unknown] amlodipine 5 mg PO DAILY 04/28/21 [History Last Taken Unknown] aspirin 81 mg PO DAILY 04/28/21 [History Last Taken Unknown] blood-glucose meter [My Pick BoxTouch Verio Flex meter] 04/28/21 [History Last Taken Unknown] cholecalciferol (vitamin D3) [Vitamin D3] 2,000 unit PO DAILY 04/28/21 [History Last Taken Unknown] ferrous sulfate 325 mg PO DAILY 04/28/21 [History Last Taken Unknown] loperamide 2 mg PO Q4H PRN PRN 04/28/21 [History Last Taken Unknown] naloxone [Narcan] 4 mg INTRANASAL PRN PRN 04/28/21 [History Last Taken Unknown] rosuvastatin 10 mg PO DAILY 04/28/21 [History Last Taken Unknown] sevelamer carbonate 1,600 mg PO TIDCM 05/23/21 [History Last Taken Unknown] sodium bicarbonate 650 mg PO TID 05/23/21 [History Last Taken Unknown] Allergy/AdvReac Type Severity Reaction Status Date / Time No Known Allergies Allergy Verified 05/23/21 11:53 Family History (System 05/04/21 @ 12:20 by Jacy Balderrama) Father Leukemia Mother COPD (chronic obstructive pulmonary disease) Surgical History H/O colectomy H/O pneumonectomy History of coronary artery stent placement (02/28/21) History of esophagogastroduodenoscopy (EGD) History of left heart catheterization (02/27/21) Hx of craniotomy S/P arteriovenous (AV) fistula creation Status post colon resection Status post insertion of dialysis catheter (07/2018) Social History (System 05/04/21 @ 12:20 by Jacy Balderrama) household members: spouse housing: other details: mobile home current occupational status: disabled pets and animals: Yes pets and animals: dog(s) Smoking Status: Former smoker quit date: 02/14/17 pack-years: 40 Tobacco: How many years used: 40 second hand exposure: No alcohol intake: never substance use type: does not use ROS ROS Narrative Patient is a denies any left upper extremity discomfort. No hand pain. He has not noticed any increased issues. Constitutional Constitutional: Reports fatigue; Denies fever(s) Cardiovascular Cardiovascular: Denies chest pain Respiratory/Chest Respiratory/Chest: Denies cough Physical Exam Const alert and no apparent distress General Appearance: cooperative Eyes PERRL Neck supple Neck Narrative: Heavily bearded Resp normal respiratory effort Cardio Rate: regular rate Extremity Extremity Narrative: Left upper extremity has a well-healed basilic vein transposition incision. There is marked ecchymosis involving the majority of the left upper arm with thickened induration in the proximal third of the left upper arm. The fistula itself has a strong pulse thrill and bruit Lab / Micro Data Result Diagrams: 05/25/21 04:43 05/24/21 05:32 Labs: Laboratory Results - last 24 hr 05/24/21 05:32: WBC 5.3, RBC 2.91 L, Hgb 8.2 L, Hct 27.2 L, MCV 93.5, MCH 28.2, MCHC 30.1 L, RDW Std Deviation 51.1 H, RDW Coeff of Joana 15.0 H, Plt Count 243, MPV 10.8, Immature Gran % (Auto) 1.500 H, Neut % (Auto) 58.1, Lymph % (Auto) 28.1, Laurens % (Auto) 7.9, Eos % (Auto) 3.8, Baso % (Auto) 0.6, Absolute Neuts (auto) 3.1, Absolute Lymphs (auto) 1.49, Nucleated RBC % 0 05/24/21 05:32: Sodium 142, Potassium 5.6 H, Chloride 112 H, Carbon Dioxide 25.0, Anion Gap 5, BUN 65 H, Creatinine 4.51 H, Estim Creat Clear Calc 17.16, Est GFR (MDRD) Af Amer 17 L, Est GFR (MDRD) Non-Af 14 L, BUN/Creatinine Ratio 14.4, Glucose 114 H, Calcium 8.2 L 05/24/21 05:32: Hep Bs Antigen Non-Reactive 05/24/21 06:36: POC Glucose 123 H 05/24/21 07:47: POC Glucose 123 H 05/24/21 11:25: POC Glucose 112 H 05/24/21 16:01: POC Glucose 191 H 05/24/21 22:03: POC Glucose 179 H 05/25/21 04:43: WBC 5.8, RBC 2.81 L, Hgb 7.8 L, Hct 26.6 L, MCV 94.7 H, MCH 27.8, MCHC 29.3 L, RDW Std Deviation 52.3 H, RDW Coeff of Joana 15.1 H, Plt Count 248, MPV 11.0 Rhythm Strip Rhythm Strip: Sinus Rhythm Rate: 58 Ectopy: None
[2021-05-25 05:43] LABS: International Normalized Ratio 1.1
[2021-05-25 05:44] LABS: AST(SGOT) 21 U/L (15-37); Alanine Aminotransfer ALT/SGPT 19 U/L (16-61); Albumin, Serum 2.4 g/dL (3.2-5.0); Alkaline Phosphatase 137 U/L (45-117); Anion Gap 6 (5-15); BUN 74 mg/dL (7-18); BUN/Creat Ratio 14.3 RATIO (10-20); Bilirubin, Direct 0.09 mg/dL (0.00-0.30); Calcium,Total 8.2 mg/dL (8.5-10.1); Chloride 116 mmol/L (98-107); Creatinine, Serum 5.17 mg/dL (0.70-1.30); EST Glomerular Filtration Rate 12 mL/min (>60); Est Glom Filt Rate - Afr Amer 14 mL/min (>60); Estimated Creatinine Clearance 14.97 ml/min; Globulin 3.4 g/dL (2.2-4.2); Glucose 136 mg/dL (74-106); Protein, Total 5.8 g/dL (6.4-8.2); Sodium Level 144 mmol/L (136-145); Thyroid Stim Hormone (TSH) 0.51 uIU/mL (0.358-3.74)
--- NOTE | 2021-05-25 05:55 | EKG12_ITS ---
Test Reason : AM EKG Blood Pressure : / mmHG Vent. Rate : 073 BPM Atrial Rate : 073 BPM P-R Int : 226 ms QRS Dur : 092 ms QT Int : 408 ms P-R-T Axes : 046 031 091 degrees QTc Int : 449 ms Sinus rhythm with 1st degree A-V block Nonspecific T wave abnormality Abnormal ECG When compared with ECG of 23-MAY-2021 12:56, No significant change was found Confirmed by HARSH ASIF, SARA ([id number]), scientific publications editor JARED MADRID ([id number]) on 05/25/2021 9:22:09 AM Referred By: DR VILLANUEVA Confirmed By:SARA HOUSE MD
[2021-05-25 06:56] LABS: Bedside Glucose 131 mg/dL (74-106)
[2021-05-25 07:03] LABS: Hemoglobin A1c 7.1 % (3.8-5.6)
--- NOTE | 2021-05-25 07:36 | PN.HOSP_ITS ---
Subjective Subjective Patient seen scheduled to undergo fistulogram since his AV fistula could not be assessed the day prior Objective Data Objective Data Vital Signs: Vital Signs Temp Pulse Resp BP Pulse Ox 98.1 F 72 18 115/71 97 05/25/21 03:42 05/25/21 07:20 05/25/21 03:42 05/25/21 03:42 05/25/21 03:42 Oxygen Flow Rate (L/min) 3 Oxygen Delivery Method Nasal Cannula Weight: 94.801 kg Body Mass Index (BMI) 29.1 Intake & Output: Intake and Output for Last 24 Hours 05/23/21 05/24/21 05/25/21 23:59 23:59 23:59 Intake Total 390 / 490 1270 / 1270 Output Total 1450 / 1451 251 / 251 Balance -1060 / -961 1019 / 1019 Lab / Micro Data Result Diagrams: 05/25/21 04:43 05/25/21 04:43 Labs: Laboratory Results - last 24 hr 05/24/21 05:32: Hep Bs Antigen Non-Reactive 05/24/21 07:47: POC Glucose 123 H 05/24/21 11:25: POC Glucose 112 H 05/24/21 16:01: POC Glucose 191 H 05/24/21 22:03: POC Glucose 179 H 05/25/21 04:43: Sodium 144, Potassium 5.0, Chloride 116 H, Carbon Dioxide 22.0, Anion Gap 6, BUN 74 H, Creatinine 5.17 H, Estim Creat Clear Calc 14.97, Est GFR (MDRD) Af Amer 14 L, Est GFR (MDRD) Non-Af 12 L, BUN/Creatinine Ratio 14.3, Glucose 136 H, Calcium 8.2 L, Phosphorus 4.0, Total Bilirubin 0.20, Direct Bilirubin 0.09, AST 21, ALT 19, Alkaline Phosphatase 137 H, Total Protein 5.8 L, Albumin 2.4 L, Globulin 3.4, TSH 0.51 05/25/21 04:43: WBC 5.8, RBC 2.81 L, Hgb 7.8 L, Hct 26.6 L, MCV 94.7 H, MCH 27.8, MCHC 29.3 L, RDW Std Deviation 52.3 H, RDW Coeff of Joana 15.1 H, Plt Count 248, MPV 11.0 05/25/21 04:43: PT 14.0, INR 1.1, APTT 42.0 H 05/25/21 04:43: Hemoglobin A1c 7.1 H 05/25/21 06:47: POC Glucose 131 H Rhythm Strip Rhythm Strip: Sinus Rhythm Rate: 58 Ectopy: None Physical Exam Narrative GENERAL: Cooperative HEENT: Atraumatic; moist oral mucosa EYES; Anicteric, Normal Conjunctiva NECK; supple, normal thyroid, RESPIRATORY: Diminished to auscultation bilaterally, CARDIOVASCULAR: Regular S1 S2, GI: soft, non-tender, normoactive bowel sounds, : No Renal angle tenderness; EXTREMITIES: edema, no clubbing, no cyanosis. MUSCULOSKELETAL: No Joint Tenderness; NEURO: Awake; no lateralizing signs. 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 Patient has apparently not needed dialysis for the past 5 weeks. Patient on admission was found to have potassium of 6.7 BUN of 82 and creatinine of 5.19. Admitted to monitored bed with initiation of emergency dialysis 1. Hyperkalemia ?Due to worsening kidney function. Patient has apparently not required dialysis for the past 5 weeks. Admitted to monitored bed patient did receive Kayexalate and consult placed to nephrology for initiation of dialysis. Subsequent monitoring with daily BMPs ordered -05/25/2021 patient potassium still remains elevated at 5.0, plan is to manage with renal diet as well as through dialysis 2. End-stage renal disease ?Patient has an AV fistula however per discussion with patient's radio talk show host Dr. Magana patient has not required any dialysis for the past [address] Daysi Magana to decide if patient will need chronic dialysis ongoing - Patient seen scheduled to undergo fistulogram since his AV fistula could not be assessed the day prior 3. Chronic hypoxic respiratory failure - to COPD patient is on baseline home O2 did continue 4. Paroxysmal A. fib ?Rate controlled on amiodarone and metoprolol 5. Diabetes mellitus type 2 ?Patient is on Tresiba 30 units twice daily this was continued in addition to sliding scale coverage 6. Coronary artery disease ?With previous CABG and subsequent stent placement did continue with patient home meds 7. Dyslipidemia -Patient is on statin therapy, continued at home dose 8. History of colon cancer ?Status post subtotal colectomy patient has remained in remission following his surgery 9. History of right lung benign tumor ?Status post partial right pneumonectomy 10. Obstructive sleep apnea ?With history of noncompliance with CPAP 11. Hypertension - Blood pressure controlled, home medications continued with dose adjustment as needed 12. Gout ?Patient on allopurinol 13. Overweight with BMI of 29.2 14. Hypothyroidism - Patient is on levothyroxine home dose continued 15. GERD ?Patient is on PPI 16. BPH ?Currently stable 17. DVT prophylaxis ?On Lovenox dose adjusted for kidney function 18. Anemia - Secondary to chronic disorder/anemia secondary to end-stage renal disease monitoring H&H and transfuse if patient becomes symptomatic or hemoglobin falls below 7 Patient seen scheduled to undergo fistulogram since his AV fistula could not be assessed the day prior Charges/Coding Visit Charges Inpatient E&M: 98364 Subs Hosp L3
--- NOTE | 2021-05-25 10:42 | CASEMGMT ---
Addendum entered by Alina Mendez 05/25/21 15:09: Pt to be discharged home today after dialysis. Green sheet left for increased home oxygen, if pt qualifies at discharge. Yaquelin CARVALHO updated on pt's chair time and HHC as pt is sleepy at this time. Maricruz CARVALHO CM Addendum entered by Alina Mendez 05/25/21 14:01: Call back from Ashleigh at [facility] and she states they can accept pt with SOC 05/29/21. Pt now has tunnel cath placed as well as fistula. Maricruz CARVALHO CM Addendum entered by Alina Mendez 05/25/21 13:18: Pedro states pt 1st OP HD will be 05/28/21. Call back from Pedro and the dialysis center changed pt's chair time to 0800 with a first day arrival time of 0715. Pt updated and info placed on pt's discharge instructions. Maricruz CARVALHO CM Addendum entered by Alina Mendez 05/25/21 13:11: Call back from Pedro at [facility] and she states pt's chair time is 1240 on [facility] and pt needs to be there by 12N. This RN CM to room and pt updated. Pt states he would like [facility] set up also and states no preference on [facility] agencies and declines list at this time. Referral to Ashleigh at [facility] for SN, PT/OT as they are in-network with pt's insurance. CM to follow. Maricruz CARVALHO CM Addendum entered by Alina Mendez 05/25/21 11:25: Call from Brooke at [facility] and she is requesting a Hep B antibody and total core. These were drawn in 03/06 and this RN CM faxes results at this time. Per Brooke, pt will be [facility] chair time between 12-1345 but she will provide definitive time once confirmed with clinic. CM to follow. Maricruz CARVALHO CM Original Note: Pt has hx of OP HD at [facility] at 1230 and last treatment was end of February 2021. Per Dr. Magana, pt will need set up with OP HD for [facility] and pt would like [facility] again. This RN CM to room but pt is out of room at this time. Referral faxed to [facility]. CM to follow. Maricruz CARVALHO CM
[2021-05-25] MEDS: Cefazolin 2 GM in 0.9% Normal Saline 100 ML IV (11:30)
--- NOTE | 2021-05-25 12:03 | PN.RENAL_ITS ---
Subjective Subjective Return from Fistulogram. Difficulty cannulating his AV fistula yesterday, pulling clots from his needle accessing his fistula. Has tunneled dialysis catheter for backup. Received Kayexalate for his high potassium yesterday. Creatinine elevated at 5.1 today. Will arrange dialysis later today. Objective Data Objective Data Vital Signs: Vital Signs Temp Pulse Resp BP Pulse Ox 97.7 F L 73 18 113/64 96 05/25/21 09:19 05/25/21 09:19 05/25/21 09:19 05/25/21 09:19 05/25/21 09:19 Oxygen Flow Rate (L/min) 3 Oxygen Delivery Method Nasal Cannula Weight: 94.801 kg Body Mass Index (BMI) 29.1 Intake & Output: Intake and Output for Last 24 Hours 05/23/21 05/24/21 05/25/21 23:59 23:59 23:59 Intake Total 390 / 490 1270 / 1270 Output Total 1450 / 1451 251 / 251 Balance -1060 / -961 1019 / 1019 Lab / Micro Data Result Diagrams: 05/25/21 04:43 05/25/21 04:43 Labs: Laboratory Results - last 24 hr 05/24/21 16:01: POC Glucose 191 H 05/24/21 22:03: POC Glucose 179 H 05/25/21 04:43: Sodium 144, Potassium 5.0, Chloride 116 H, Carbon Dioxide 22.0, Anion Gap 6, BUN 74 H, Creatinine 5.17 H, Estim Creat Clear Calc 14.97, Est GFR (MDRD) Af Amer 14 L, Est GFR (MDRD) Non-Af 12 L, BUN/Creatinine Ratio 14.3, Glucose 136 H, Calcium 8.2 L, Phosphorus 4.0, Total Bilirubin 0.20, Direct Bilirubin 0.09, AST 21, ALT 19, Alkaline Phosphatase 137 H, Total Protein 5.8 L, Albumin 2.4 L, Globulin 3.4, TSH 0.51 05/25/21 04:43: WBC 5.8, RBC 2.81 L, Hgb 7.8 L, Hct 26.6 L, MCV 94.7 H, MCH 27.8, MCHC 29.3 L, RDW Std Deviation 52.3 H, RDW Coeff of Joana 15.1 H, Plt Count 248, MPV 11.0 03/11/22 04:43: PT 14.0, INR 1.1, APTT 42.0 H 05/25/21 04:43: Hemoglobin A1c 7.1 H 05/25/21 06:47: POC Glucose 131 H Rhythm Strip Rhythm Strip: Sinus Rhythm Rate: 58 Ectopy: None Physical Exam Const alert and oriented x3 Cardio regular rate GI non-tender and non-distended Palpation: soft Extremity no clubbing, cyanosis or edema Skin Wound Narrative: AV fistula with ecchymosis over access nontender. Good thrill and bruit. Neuro Sensorium / Orientation: awake and alert Assessment & Plan Assessment/Plan (1) CKD stage 5 due to type 2 diabetes mellitus: PLAN: Elevated creatinine in dialysis today. Arrange outpatient dialysis at [facility] dialysis as acute on chronic (2) Iron deficiency anemia: PLAN: IV iron load, REE therapy (3) Acute hyperkalemia: PLAN: Improved with Kayexalate from yesterday. Dialysis later today (4) Problem with dialysis access: QUALIFIERS: Encounter type: initial encounter Qualified Code(s): T82.898A - Other specified complication of vascular prosthetic devices, implants and grafts, initial encounter PLAN: Fistulogram today with tunneled dialysis catheter for backup. F istulogram today without significant stenosis. AV fistula still with good thrill and bruit. Discussed with Dr. Chaves and dialysis staff.
[2021-05-25] MEDS: Lidocaine 1% (50 ml mdv) 50 ML Vial 20 ML INFILT (12:22)
[2021-05-25 12:36] LABS: Bedside Glucose 135 mg/dL (74-106)
--- NOTE | 2021-05-25 14:27 | PCM.DC.SUM ---
Providers Date of Admission: 05/23/21 Primary Care Physician: Dr. Jonathan Baptiste DO Consultations 05/23/21 16:42 Consult: Nephrology Routine Consulting Provider: Daysi Magana Reason for Consult: hyperkalemia EMERGENT Consult: No MD Notified: Yes Date Notified: 05/23/21 Time Notified: 14:43 Method of Notification: Text 05/24/21 15:54 Consult: Vascular Surgery Routine Consulting Provider: Enoch Dick Reason for Consult: Non functioning fistula EMERGENT Consult: No MD Notified: Yes Date Notified: 05/24/21 Time Notified: 15:58 Method of Notification: Text Reason For Visit: HYPERKALEMIA, FLUID OVERLOAD FROM ESRD Diagnosis Discharge Diagnosis (1) CKD stage 5 due to type 2 diabetes mellitus: Status: Acute Code(s): E11.22 - Type 2 diabetes mellitus with diabetic chronic kidney disease; N18.5 - Chronic kidney disease, stage 5 (2) Iron deficiency anemia: Status: Acute Code(s): D50.9 - Iron deficiency anemia, unspecified (3) Acute hyperkalemia: Status: Acute Code(s): E87.5 - Hyperkalemia (4) Problem with dialysis access: Status: Acute Code(s): T82.898A - Other specified complication of vascular prosthetic devices, implants and grafts, initial encounter Qualifiers: Encounter type: initial encounter Qualified Code(s): T82.898A - Other specified complication of vascular prosthetic devices, implants and grafts, initial encounter Medications at Discharge Home Medications nitroglycerin 0.4 mg SUBLINGUAL Q5M PRN 05/14/17 oxycodone 5 mg PO BID PRN PRN 05/14/17 finasteride 5 mg PO DAILY 09/15/17 isosorbide mononitrate 30 mg PO DAILY 09/15/17 metoprolol succinate 50 mg PO DAILY 09/15/17 albuterol sulfate 1 - 2 puff INHALATION Q4H PRN PRN 05/12/18 diazepam 10 mg PO BID PRN 05/12/18 clopidogrel 75 mg PO DAILY 08/04/18 cilostazol 100 mg tablet 100 mg PO QHS tab 09/30/19 escitalopram oxalate 20 mg tablet 20 mg PO DAILY 09/30/19 ipratropium 0.5 mg-albuterol 3 mg (2.5 mg base)/3 mL nebulization soln 3 ml INHALATION Q4H PRN ml 09/30/19 levothyroxine 88 mcg PO DAILY 12/07/19 pantoprazole 40 mg PO DAILY 08/26/20 Anoro Ellipta 1 inh INHALATION Q24H 08/31/20 insulin aspart U-100 [Novolog Flexpen U-100 Insulin] 5 units SUBCUT TIDCM 12/25/20 albuterol sulfate 2 puff INHALATION 4X/DAY 04/28/21 allopurinol 100 mg PO DAILY 04/28/21 amiodarone 200 mg PO DAILY 04/28/21 aspirin 81 mg PO DAILY 04/28/21 blood-glucose meter [OneTouch Verio Flex meter] 04/28/21 cholecalciferol (vitamin D3) [Vitamin D3] 2,000 unit PO DAILY 04/28/21 ferrous sulfate 325 mg PO DAILY 04/28/21 loperamide 2 mg PO Q4H PRN PRN 04/28/21 naloxone [Narcan] 4 mg INTRANASAL PRN PRN 04/28/21 rosuvastatin 10 mg PO DAILY 04/28/21 sevelamer carbonate 1,600 mg PO TIDCM 05/23/21 sodium bicarbonate 650 mg PO TID 05/23/21 Tresiba FlexTouch U-100 10 unit SUBCUT BID #0 ml 05/25/21 Hospital Course Summary of Care Provided Minutes Spent on Discharge: 40 Hospital Course: Patient is a 65-year-old gentleman with history of end-stage renal disease with previous intermittent dialysis in the past was sent from his [employer] office with progressive generalized weakness and worsening of kidney function. Patient has apparently not needed dialysis for the past 5 weeks. Patient on admission was found to have potassium of 6.7 BUN of 82 and creatinine of 5.19. Admitted to monitored bed with initiation of emergency dialysis 1. Hyperkalemia ?Due to worsening kidney function. Patient has apparently not required dialysis for the past 5 weeks. Admitted to monitored bed patient did receive Kayexalate and consult placed to nephrology for initiation of dialysis. Subsequent monitoring with daily BMPs ordered -05/25/2021 patient potassium still remains elevated at 5.0, plan is to manage with renal diet as well as through dialysis 2. End-stage renal disease ?Patient has an AV fistula however per discussion with patient's [employer] Dr. Magana patient has not required any dialysis for the past [address] Daysi Magana to decide if patient will need chronic dialysis ongoing - Patient seen scheduled to undergo fistulogram since his AV fistula could not be assessed the day prior ?Patient underwent successful fistulogram. Subsequently had dialysis and was discharged home after dialysis on a more scheduled basis was set up by case management 3. Chronic hypoxic respiratory failure - to COPD patient is on baseline home O2 did continue 4. Paroxysmal A. fib ?Rate controlled on amiodarone and metoprolol 5. Diabetes mellitus type 2 ?Patient is on Tresiba 30 units twice daily this was continued in addition to sliding scale coverage 6. Coronary artery disease ?With previous CABG and subsequent stent placement did continue with patient home meds 7. Dyslipidemia -Patient is on statin therapy, continued at home dose 8. History of colon cancer ?Status post subtotal colectomy patient has remained in remission following his surgery 9. History of right lung benign tumor ?Status post partial right pneumonectomy 10. Obstructive sleep apnea ?With history of noncompliance with CPAP 11. Hypertension - Blood pressure controlled, home medications continued with dose adjustment as needed 12. Gout ?Patient on allopurinol 13. Overweight with BMI of 29.2 14. Hypothyroidism - Patient is on levothyroxine home dose continued 15. GERD ?Patient is on PPI 16. BPH ?Currently stable 17. DVT prophylaxis ?On Lovenox dose adjusted for kidney function 18. Anemia - Secondary to chronic disorder/anemia secondary to end-stage renal disease monitoring H&H and transfuse if patient becomes symptomatic or hemoglobin falls below 7 Physical Exam Narrative GENERAL: Cooperative HEENT: Atraumatic; moist oral mucosa EYES; Anicteric, Normal Conjunctiva NECK; supple, normal thyroid, RESPIRATORY: Diminished to auscultation bilaterally, CARDIOVASCULAR: Regular S1 S2, GI: soft, non-tender, normoactive bowel sounds, : No Renal angle tenderness; EXTREMITIES: edema, no clubbing, no cyanosis. MUSCULOSKELETAL: No Joint Tenderness; NEURO: Awake; no lateralizing signs. SKIN: No Rash PSYCH; Normal affect Weight / BMI Weight Weight: 94.801 kg Body Mass Index (BMI) 29.1 ABG / Lab / Microbiology Data Result Diagrams: 05/25/21 04:43 05/25/21 04:43 Laboratory: Laboratory Results - last 24 hr 05/24/21 16:01: POC Glucose 191 H 05/24/21 22:03: POC Glucose 179 H 05/25/21 04:43: Sodium 144, Potassium 5.0, Chloride 116 H, Carbon Dioxide 22.0, Anion Gap 6, BUN 74 H, Creatinine 5.17 H, Estim Creat Clear Calc 14.97, Est GFR (MDRD) Af Amer 14 L, Est GFR (MDRD) Non-Af 12 L, BUN/Creatinine Ratio 14.3, Glucose 136 H, Calcium 8.2 L, Phosphorus 4.0, Total Bilirubin 0.20, Direct Bilirubin 0.09, AST 21, ALT 19, Alkaline Phosphatase 137 H, Total Protein 5.8 L, Albumin 2.4 L, Globulin 3.4, TSH 0.51 05/25/21 04:43: WBC 5.8, RBC 2.81 L, Hgb 7.8 L, Hct 26.6 L, MCV 94.7 H, MCH 27.8, MCHC 29.3 L, RDW Std Deviation 52.3 H, RDW Coeff of Joana 15.1 H, Plt Count 248, MPV 11.0 05/25/21 04:43: PT 14.0, INR 1.1, APTT 42.0 H 05/25/21 04:43: Hemoglobin A1c 7.1 H 05/25/21 06:47: POC Glucose 131 H 05/25/21 12:19: POC Glucose 135 H D/C Instructions Discharge Diet: No restrictions Meaningful Use Info Meaningful Use Diagnoses (Choose all that apply): None applicable Discharge Plan Admission Admit Date/Time: 05/23/21 14:39 Attending Provider: Felix Cha Primary Care Provider: Jonathan Baptiste Consulting Providers: Daysi Magana ; Enoch Dick Discharge Orders/Prescriptions Prescriptions: Continued ipratropium-albuterol 0.5 mg-3 mg(2.5 mg base)/3 mL solution for nebulization 3 ml INHALATION Q4H PRN (Reason: shortness of breath or wheezing) RF: 0 escitalopram oxalate [Lexapro] 20 mg tablet 20 mg PO DAILY RF: 0 nitroglycerin 0.4 MG tablet 0.4 mg SUBLINGUAL Q5M PRN (Reason: Chest Pain) RF: 0 oxycodone 5 MG tablet 5 mg PO BID PRN PRN (Reason: Pain) RF: 0 finasteride 5 MG tablet 5 mg PO DAILY RF: 0 isosorbide mononitrate 30 MG tablet 30 mg PO DAILY RF: 0 metoprolol succinate 50 MG tablet 50 mg PO DAILY RF: 0 cilostazol 100 mg tablet 100 mg PO QHS RF: 0 albuterol sulfate 1 INHALER inhaler 1 - 2 puff inhalation Q4H PRN PRN (Reason: Wheezing) RF: 0 diazepam 5 MG tablet 10 mg PO BID PRN (Reason: anxiety) RF: 0 clopidogrel 75 MG tablet 75 mg PO DAILY RF: 0 levothyroxine 88 MCG tablet 88 mcg PO DAILY RF: 0 pantoprazole 40 mg Tablet,Delayed Release (Dr/Ec) 40 mg PO DAILY RF: 0 Anoro Ellipta 62.5-25 mcg/actuation blister with device 1 inh inhalation Q24H RF: 0 insulin aspart U-100 [Novolog Flexpen U-100 Insulin] 100 UNITS/ML insulin pen 5 units subcut TIDCM RF: 0 (DME) blood-glucose meter [Dynamicsuch Verio Flex meter] Misc MISCELLANEOUS RF: 0 loperamide 2 mg capsule 2 mg PO Q4H PRN PRN (Reason: Constipation) RF: 0 amiodarone 200 mg tablet 200 mg PO DAILY RF: 0 allopurinol 100 mg tablet 100 mg PO DAILY RF: 0 aspirin 81 mg tablet,delayed release (DR/EC) 81 mg PO DAILY RF: 0 albuterol sulfate 90 mcg/actuation HFA aerosol inhaler 2 puff INHALATION 4X/DAY RF: 0 ferrous sulfate 325 mg (65 mg iron) tablet,delayed release (DR/EC) 325 mg PO DAILY RF: 0 rosuvastatin 10 mg tablet 10 mg PO DAILY RF: 0 cholecalciferol (vitamin D3) [Vitamin D3] 50 mcg (2,000 unit) capsule 2,000 unit PO DAILY RF: 0 naloxone [Narcan] 4 mg/actuation spray,non-aerosol 4 mg INTRANASAL PRN PRN (Reason: Opioid Reversal) RF: 0 sodium bicarbonate 650 mg tablet 650 mg PO TID RF: 0 sevelamer carbonate 800 mg tablet 1,600 mg PO TIDCM RF: 0 Changed Tresiba FlexTouch U-100 100 unit/mL (3 mL) insulin pen 10 unit SUBCUT BID Qty: 0 RF: 0 Discontinued amlodipine 5 mg tablet 5 mg PO DAILY RF: 0 Referrals / Follow Up: Daysi Magana DO [STAFF PHYSICIAN] - Within 1 Week (For end-stage renal disease) Jonathan Baptiste DO [Primary Care Provider] - 05/31/21 10:00 am (Appointment is in [place]) Disposition Disposition (needs filled in before D/C Order can be placed): Home Health Service Charges/Coding Visit Charges Inpatient E&M: 04439 Disch Hosp
[2021-05-25 16:36] LABS: Bedside Glucose 123 mg/dL (74-106)
[2021-05-25] MEDS: Heparin 10,000 UNITS/10 ML Vial IV (18:31)
[2021-05-25] MEDS: Finasteride 5 MG Tablet PO (18:33)
[2021-05-25] MEDS: SEVELAMER CARBONATE 800 MG TABLET 1600 MG PO (18:34)
[2021-05-25] MEDS: Ferrous Sulfate 325 MG Tablet PO (18:34)
[2021-05-25] MEDS: Clopidogrel Bisulfate 75 MG Tablet PO (18:34)
[2021-05-25] MEDS: Aspirin E.C. 81 MG Tablet PO (18:35)
[2021-05-25] MEDS: Sodium Bicarbonate 650 MG Tablet PO ×2 (18:35→21:51)
[2021-05-25] MEDS: Escitalopram Oxalate 20 MG Tablet PO (18:36)
[2021-05-25] MEDS: Allopurinol 100 MG Tablet PO (18:36)
[2021-05-25] MEDS: Bupivacaine Mpf 0.5% 30 ML VIAL INFILT (18:36)
[2021-05-25] MEDS: Pantoprazole Sodium 40 MG Tablet PO (18:37)
[2021-05-25] MEDS: Cholecalciferol (VIT D3) 25 MCG TABLET (1,000 UNITS) 50 MCG PO (18:37)
[2021-05-25] MEDS: Amiodarone 200 MG Tablet PO (18:40)
--- NOTE | 2021-05-25 18:45 | DIALYSIS ---
HD x 3.5 hours complete. Tolerated tx well. No fluid removed d/t bp. Ran on 2k bath. Placed 1 16g needle in upper left arm fistula to pull blood from the patient, and used the right chest wall dialysis catheter to return the blood. Both lumens closed with heparin per fill volume post tx. Caps placed. Removed needle from fistula and pressure was applied x 10 minutes. Hemostasis achieved. Fresh gauze and tape applied. Ferrlecit given as ordered. See tx sheet for more details. Report was given to DEVEN Jamison.
[2021-05-25] MEDS: Cilostazol 50 MG Tablet 100 MG PO (21:51)
[2021-05-25] MEDS: Atorvastatin Calcium 20 MG Tablet PO (21:51)
[2021-05-25] MEDS: Insulin Lispro 100 UNIT/ML INSULN.PEN SC (21:51)
[2021-05-25 22:50] LABS: Bedside Glucose 229 mg/dL (74-106)
[2021-05-26 03:24] VITALS: PULSE 69
[2021-05-26 04:04] VITALS: BP 113/57; PULSE 80; RESP 18; TEMP 36.8; O2SAT 95
[2021-05-26] MEDS: Sodium Bicarbonate 650 MG Tablet PO (05:29)
[2021-05-26] MEDS: Levothyroxine 88 MCG Tablet PO (05:29)
[2021-05-26 07:04] VITALS: PULSE 73
[2021-05-26 08:00] VITALS: BP 112/59; PULSE 77; RESP 16; TEMP 37.1; O2SAT 100
[2021-05-26 08:19] VITALS: BP 112/59; PULSE 77
[2021-05-26] MEDS: Cholecalciferol (VIT D3) 25 MCG TABLET (1,000 UNITS) 50 MCG PO (08:19)
[2021-05-26] MEDS: Pantoprazole Sodium 40 MG Tablet PO (08:19)
[2021-05-26] MEDS: Metoprolol(XL)Succ 50 MG Tablet PO (08:19)
[2021-05-26] MEDS: Clopidogrel Bisulfate 75 MG Tablet PO (08:20)
[2021-05-26] MEDS: Escitalopram Oxalate 20 MG Tablet PO (08:20)
[2021-05-26] MEDS: Finasteride 5 MG Tablet PO (08:20)
[2021-05-26] MEDS: Ferrous Sulfate 325 MG Tablet PO (08:20)
[2021-05-26] MEDS: SEVELAMER CARBONATE 800 MG TABLET 1600 MG PO (08:20)
[2021-05-26] MEDS: Aspirin E.C. 81 MG Tablet PO (08:20)
[2021-05-26] MEDS: Amiodarone 200 MG Tablet PO (08:20)
[2021-05-26] MEDS: Insulin Lispro 100 UNIT/ML INSULN.PEN SC (08:20)
[2021-05-26] MEDS: Isosorbide Mononitrate 30 MG Tablet PO (08:20)
[2021-05-26] MEDS: Allopurinol 100 MG Tablet PO (08:20)
[2021-05-26 08:27] VITALS: O2SAT 87; O2SAT 95
--- NOTE | 2021-05-26 10:31 | CASEMGMT ---
Pt does not qualify for increased home oxygen. Pt is still agreeable to [facility] and is ok with discharge today. D/C summ/instructions faxed to [facility] and call to electrical installation supervisor nurse to notify of discharge. Maricruz CARVALHO CM
--- NOTE | 2021-05-26 10:40 | CASEMGMT ---
This RN KERI was called to room by RN, stating pt's sister, would like to speak with CM. Sister inquires about transportation to and from dialysis for pt. Pt/sister informed that SW will meet with pt the 1st or 2nd visit and can assist with transportation and any other resources, voice understanding and states no further concerns/needs. Pt ready for d/c. Maricruz CARVALHO CM
[2021-05-26 11:06] LABS: Bedside Glucose 142 mg/dL (74-106)
== END 2021-05-26 11:02 | disposition home health service (06) | DRG 640 ==
LOC: ED 14:53 → PCU 15:01
PROVIDERS: Anesthesiology; Internal Medicine Nephrology; Admitting Provider Student in an Organized Health Care Education/Training Program; Emergency Provider Emergency Medicine; PCP Student in an Organized Health Care Education/Training Program; Visit Provider Internal Medicine
DX: E87.5 Hyperkalemia (principal); I50.33 Acute on chronic diastolic (congestive) heart failure; J96.11 Chronic respiratory failure with hypoxia; T82.898A Other specified complication of vascular prosthetic devices, implants and grafts, initial encounter; N18.5 Chronic kidney disease, stage 5; I13.0 Hypertensive heart and chronic kidney disease with heart failure and stage 1 through stage 4 chronic kidney disease, or unspecified chronic kidney disease; D63.1 Anemia in chronic kidney disease; E11.22 Type 2 diabetes mellitus with diabetic chronic kidney disease; J44.9 Chronic obstructive pulmonary disease, unspecified; Z79.4 Long term (current) use of insulin; E11.51 Type 2 diabetes mellitus with diabetic peripheral angiopathy without gangrene; Z99.2 Dependence on renal dialysis; I48.0 Paroxysmal atrial fibrillation; D50.9 Iron deficiency anemia, unspecified; E03.9 Hypothyroidism, unspecified; E78.5 Hyperlipidemia, unspecified; I44.0 Atrioventricular block, first degree; I25.5 Ischemic cardiomyopathy; I25.10 Atherosclerotic heart disease of native coronary artery without angina pectoris; E78.00 Pure hypercholesterolemia, unspecified; E87.70 Fluid overload, unspecified; G47.33 Obstructive sleep apnea (adult) (pediatric); M10.9 Gout, unspecified; K21.9 Gastro-esophageal reflux disease without esophagitis; E87.6 Hypokalemia; N40.0 Benign prostatic hyperplasia without lower urinary tract symptoms; I25.2 Old myocardial infarction; Z87.891 Personal history of nicotine dependence; E66.3 Overweight; Z95.1 Presence of aortocoronary bypass graft; Z95.5 Presence of coronary angioplasty implant and graft; Z85.038 Personal history of other malignant neoplasm of large intestine; Z90.49 Acquired absence of other specified parts of digestive tract; Z68.29 Body mass index [BMI] 29.0-29.9, adult; Z66 Do not resuscitate; Z99.89 Dependence on other enabling machines and devices
CPT/HCPCS: 36415; 36558; 36902; 71045; 76937; 77001; 80048; 80069; 80076; 82962; 83036; 83880; 84443; 84484; 85025; 85027; 85610; 85730; 87340; 90937; 93005; 97162; 97166; 97802; 99152; 99153; 99285; 99406; J1756; J7030; Q9967; A4216; C1769; G0257; J0610; J2916; Q5106

== ENCOUNTER 2021-05-25 13:33 | Outpatient (CLI) | payer MEDICARE, SELFPAY ==
--- NOTE | 2021-05-25 11:32 | RAD_ITS ---
STUDY: X-RAY CHEST REASON FOR EXAM: Male, 65 years old. Dialysis catheter placement. TECHNIQUE: Single AP portable view of the chest. COMPARISON: Comparison is made with prior study dated 05/23/2021. FINDINGS: A right-sided Vas-Cath has been placed with the tip in the proximal portion of the superior vena cava. Stable blunting of the right cause jovita angle with increased markings in the right upper lobe. There has been improved aeration of the left lung as compared to prior study. Residual blunting of the left cosmetic angle. There is moderate cardiac enlargement. Normal mediastinum and elizabeth. Normal visualized pulmonary arteries. There is atherosclerotic tortuosity of the aortic arch and descending thoracic aorta. There are diffuse degenerative changes of the visualized thoracic spine. Normal visualized ribs, clavicles, and shoulders. There is no demonstrated abnormality of the visualized soft tissue structures of the upper abdomen. RAD/Chest 1 View (Portable) IMPRESSION: The tip of the dialysis catheter is in the proximal portion of the superior vena cava. Cardiomegaly. Lacune of the right cusp angle with persistent increased markings in the right upper lobe. There has been improved aeration of the left lower lobe. Electronically Signed: Herbert Carroll MD at 12:28 EST ,
--- NOTE | 2021-05-25 11:34 | OP.PCM_ITS ---
Problems Associated Problem List Diagnoses (1) Problem with dialysis access: Report of Operation Date of Procedure: 05/25/21 Pre-Operative Diagnosis: Infiltration left upper arm transposed basilic vein to brachial artery arteriovenous hemodialysis fistula Post-Operative Diagnosis: Patent left upper extremity transposed basilic vein to brachial artery hemodialysis fistula Surgery/Procedure Performed:: Left upper extremity fistulogram with supplemental 7 x 4 Powerflex balloon maturation angioplasty Right internal jugular 19 cm precurved palindrome catheter placement Description of Surgical Findings:: Timeout informed consent was obtained. 65-year-old gentleman was taken to the special procedures lab placed on the table he received 50 mcg of fentanyl 1 mg of Versed is intravenous sedation the left extremity sterilely prepped and draped ultrasound was performed in the proximal left upper arm closer to the axilla. Where possible 1% lidocaine mixed 50-50 with 0.5% Marcaine was used as local anesthetic. Then under ultrasound guidance micropuncture needle inserted micropuncture wire inserted 6 Trinidadian sheath was inserted. An 035 Glidewire and 4 Trinidadian glide cath was advanced into the brachial artery proximal to the anastomosis. Using Isovue contrast hand- injection fistulogram was stained demonstrating what appeared to be a widely patent left upper arm AV fistula. Because the patient had been infiltrated with significant swelling I elected to perform an additional balloon maturation angioplasty. Over the guidewire I removed the guide cath and placed a 7 x 40 mm Powerflex balloon and performed balloon angioplasty of the anastomosis proximal midportion of the fistula. I did this in an attempt to further assist dialysis access. Images demonstrate a patent transposed left upper arm basilic vein to brachial artery AV fistula. With the balloon angioplasty there is now an even larger vein identified. Anastomosis is widely patent. He tolerated the procedure well. During my attempt to finish the fistulogram in the upper arm chest area the sheath became dislodged. As there was an absolutely wonderful thrill and bruit. Placed a U suture at the exit site pressure was held for hemostasis. Verbal discussion was then had with PCU. It became apparent that the die cast technician did not feel comfortable trying to access the fistula because of the previous infiltration and swelling. Ancef 2 g were given intravenously. A complete a new set up was performed. The right neck was sterilely prepped and draped with chlorhexidine. This point the patient received another 50 mcg of fentanyl and 3 mg of Versed ascension sedation. Under ultrasound guidance the right internal jugular vein was identified 1% lidocaine mixed 50-50 with 0.5% Marcaine was instilled as local anesthetic. Throughout that procedure total 20 cc was used. Local was instilled micropuncture needle inserted micropuncture wire inserted fluoroscopy demonstrated good positioning local was instilled down upon the chest wall and exit site was selected then 19 cm precurved catheter was advanced from the chest to the neck site. Then the micropuncture wire exchanged out for an 035 J-wire. Serial dilatation was performed sheath dilator was inserted. The dilator and wire removed. The catheter advanced through the sheath. The sheath was split the catheter was positioned as far centrally as possible.. It aspirated easily. It was flushed with saline and then 2 cc of heparinized saline per channel. The neck site was closed with interrupted 3-0 Vicryl subdermal stitch. The cat heter was secured to skin with 3-0 nylon. Sterile dressings were applied. He tolerated the procedure well. Stat portable chest x-ray is pending no apparent complication. At the completion of the procedure the patient had a wonderful pulse thrill and bruit within the left upper arm AV fistula. The hand was viable. The tunneled dialysis catheters aspirated and flushed easily. Because of the patient's body habitus shape catheter is somewhat high in the SVC. This may require patient positioning during dialysis to assist. Enoch Dick M.D., F.A.C.S. Surgeon: Enoch Dick Type of Anesthesia: IV Sedation and Local
== END 2021-05-25 23:59 | disposition home or self-care (01) ==
LOC: CLSP 06-12 13:33
PROVIDERS: PCP Student in an Organized Health Care Education/Training Program; Visit Provider Surgery
DX: T82.898A Other specified complication of vascular prosthetic devices, implants and grafts, initial encounter (principal)
CPT/HCPCS: 71045

== ENCOUNTER 2021-05-28 13:23 | Emergency (ER) | payer MEDICARE, SELFPAY ==
[2021-05-28 13:24] VITALS: BP 129/100; PULSE 66; RESP 16; TEMP 36.6; O2SAT 95; BMI 29.2
--- NOTE | 2021-05-28 14:14 | EDS_ITS ---
HPI History of Present Illness Chief Complaint: Wound Check Informant: patient Narrative Narrative: Patient presents with bleeding after dialysis. He had dialysis from 8 AM to a little before noon. He states they been having trouble getting his left fistula to flow well. So they ended up using a chest dialysis catheter that was placed just a few days ago. He said dialysis went without difficulty. However he was having bleeding from the chest wound where his catheter had been placed. It has now stopped. He did not have bleeding from the left arm. He is on aspirin and Plavix. No other anticoagulation. No bleeding from other areas. He states he has severe anxiety and this made him anxious but he did take his Valium today. He has not had any other symptoms such as chest pain or dyspnea. Time seem to make this better. It has stopped now for approximately an hour. [facility] Medical History Acute exacerbation of chronic obstructive pulmonary disease (COPD) Acute HFrEF (heart failure with reduced ejection fraction) Acute renal failure superimposed on stage 3 chronic kidney disease Acute renal failure superimposed on stage 4 chronic kidney disease Acute respiratory failure with hypoxemia Anemia Anemia Anemia of chronic renal failure Anxiety Atherosclerosis of coronary artery of [place] heart without angina pectoris Back pain C. difficile colitis Cancer Cancer Cardiology follow-up encounter Cholelithiasis Chronic hypoxemic respiratory failure Chronic renal failure, stage 4 (severe) Colon cancer Colon cancer COPD (chronic obstructive pulmonary disease) CPAP (continuous positive airway pressure) dependence Depression Diabetes Diabetes mellitus type 2 in obese DM type 2 causing CKD stage 4 Elevated troponin Essential (primary) hypertension Former smoker Gastric reflux Gastroenteritis Gout Heme + stool Hemorrhoids High cholesterol History of echocardiogram History of GI bleed History of IBS History of renal disease Hyperkalemia, diminished renal excretion Hyperlipidemia Hypertension Hyponatremia Hypotension, unspecified Increased PTH level Infectious encephalopathy Influenza B Injury of head and neck Insulin dependent diabetes mellitus Iron deficiency anemia Ischemic cardiomyopathy Kidney disease Low vitamin D level Lower GI bleed Metabolic acidosis Metabolic acidosis Myocardial infarct Nicotine dependence, cigarettes, in remission Nocturnal hypoxia Non-STEMI (non-ST elevated myocardial infarction) Noncompliance with CPAP treatment NSAID long-term use NSTEMI (non-ST elevated myocardial infarction) (07/2018) NSVT (nonsustained ventricular tachycardia) On home oxygen therapy LADARIUS (obstructive sleep apnea) Paroxysmal atrial fibrillation Peripheral vascular disease Pseudomembranous enterocolitis Radiculopathy affecting upper extremity Septic shock Severe sepsis Severe sepsis Shortness of breath on exertion Skin tear Sleep apnea Stage 3 severe COPD by GOLD classification Streptococcal pneumonia Uremia of renal origin Urinary retention due to benign prostatic hyperplasia Wears dentures Home Medications nitroglycerin 0.4 mg SUBLINGUAL Q5M PRN 05/14/17 [History Last Taken Unknown] oxycodone 5 mg PO BID PRN PRN 05/14/17 [History Last Taken 08/26/20] finasteride 5 mg PO DAILY 09/15/17 [History Last Taken 02/12/21] isosorbide mononitrate 30 mg PO DAILY 09/15/17 [History Last Taken 02/12/21] metoprolol succinate 50 mg PO DAILY 09/15/17 [History Last Taken 02/12/21] albuterol sulfate 1 - 2 puff INHALATION Q4H PRN PRN 05/12/18 [History Last Taken 12/05/19] diazepam 10 mg PO BID PRN 05/12/18 [History Last Taken 08/26/20] clopidogrel 75 mg PO DAILY 08/04/18 [History Last Taken 08/26/20] cilostazol 100 mg tablet 100 mg PO QHS tab 09/30/19 [History Last Taken 08/25/20] escitalopram oxalate 20 mg tablet 20 mg PO DAILY 09/30/19 [History Last Taken 08/26/20] ipratropium 0.5 mg-albuterol 3 mg (2.5 mg base)/3 mL nebulization soln 3 ml INHALATION Q4H PRN ml 09/30/19 [History Last Taken 12/07/19] levothyroxine 88 mcg PO DAILY 12/07/19 [History Last Taken 02/12/21] pantoprazole 40 mg PO DAILY 08/26/20 [History Last Taken 08/26/20] Anoro Ellipta 1 inh INHALATION Q24H 08/31/20 [History Last Taken 02/12/21] insulin aspart U-100 [Novolog Flexpen U-100 Insulin] 5 units SUBCUT TIDCM 12/25/20 [History Last Taken Unknown] albuterol sulfate 2 puff INHALATION 4X/DAY 04/28/21 [History Last Taken Unknown] allopurinol 100 mg PO DAILY 04/28/21 [History Last Taken Unknown] amiodarone 200 mg PO DAILY 04/28/21 [History Last Taken Unknown] aspirin 81 mg PO DAILY 04/28/21 [History Last Taken Unknown] blood-glucose meter [OneTouch Verio Flex meter] 04/28/21 [History Last Taken Unknown] cholecalciferol (vitamin D3) [Vitamin D3] 2,000 unit PO DAILY 04/28/21 [History Last Taken Unknown] ferrous sulfate 325 mg PO DAILY 04/28/21 [History Last Taken Unknown] loperamide 2 mg PO Q4H PRN PRN 04/28/21 [History Last Taken Unknown] naloxone [Narcan] 4 mg INTRANASAL PRN PRN 04/28/21 [History Last Taken Unknown] rosuvastatin 10 mg PO DAILY 04/28/21 [History Last Taken Unknown] sevelamer carbonate 1,600 mg PO TIDCM 05/23/21 [History Last Taken Unknown] Tresiba FlexTouch U-100 10 unit SUBCUT BID #0 ml 05/25/21 [Rx Last Taken Unknown] Allergy/AdvReac Type Severity Reaction Status Date / Time No Known Allergies Allergy Verified 05/23/21 11:53 Family History Father Leukemia Mother COPD (chronic obstructive pulmonary disease) Surgical History H/O colectomy H/O pneumonectomy History of coronary artery stent placement (02/28/21) History of esophagogastroduodenoscopy (EGD) History of left heart catheterization (02/27/21) Hx of craniotomy S/P arteriovenous (AV) fistula creation Status post colon resection Status post insertion of dialysis catheter (07/2018) Social History household members: spouse housing: other details: mobile home current occupational status: disabled pets and animals: Yes pets and animals: dog(s) Smoking Status: Former smoker quit date: 02/14/17 pack-years: 40 Tobacco: How many years used: 40 second hand exposure: No alcohol intake: never substance use type: does not use ROS ROS ED Constitutional Constitutional ED: Denies fever(s) Cardiovascular Cardiovascular: Denies chest pain or palpitations Respiratory/Chest Respiratory/Chest: Denies cough or dyspnea Gastrointestinal Gastrointestinal: Denies melena, nausea or vomiting Musculoskeletal Musculoskeletal: Denies myalgias Integumentary Denies rash Neurologic Neurologic: Denies headache(s), paresthesias or weakness Psychiatric Psychiatric: Reports anxiety Endocrine Endocrinology: Denies polydipsia or polyuria Allergic/Immunologic Allergic/Immunologic ED: Denies urticaria EXAM Physical Exam Const Vital Signs: 05/28/21 13:24 Temperature 97.8 F Temperature Source Temporal Pulse Rate 66 Respiratory Rate 16 Blood Pressure 129/100 H Blood Pressure Mean 109 Pulse Ox 95 Oxygen Delivery Method Room Air Positive well nourished and well developed General Appearance ED: well developed and NAD; Negative for cyanotic or diaphoretic HEENT Reports moist mucous membranes Eyes General Eye ED: Negative for pale conjunctiva Neck no JVD Chest Wall inspection of chest normal Chest Narrative: Patient has a Vas-Cath in the right upper chest. All sites are clean. There is no bleeding. There is no bulky dressing. There is no swelling. No indication of problem complication. No erythema warmth or tenderness. Overall this looks normal. Resp normal respiratory effort and clear to auscultation bilaterally Cardio regular rate GI normal to inspection, nondistended, normoactive bowel sounds and non-tender Palpation: soft Neuro oriented x3 Sensorium / Orientation: alert Psych mental status grossly normal Psych Narrative: Patient is mildly anxious. However, he states he took his Valium this morning. He has Valium at home. He is afraid he will get very anxious because of this but he does not feel that right now. Skin no rashes or lesions noted MDM MDM MDM Narrative Medical decision making narrative: Patient is approximately 2-1/2 to 3 hours past the end of his reported dialysis. It sounds like he does likely get heparin with dialysis. However, at this point there is no sign of bleeding. He is on antiplatelet agents but he appears to have a clot at this time. His heparin should be mostly worn off at this time. I do not think further treatment is needed. He feels physically fine. I think we can get him home. We did discuss management of anxiety. Discharge Plan Triage Chief Complaint: Wound Check ED Provider: Sher Vazquez Dx/Rx/DC Orders Clinical Impression: Bleeding due to dialysis catheter placement, Chronic anxiety Instructions: ED Post Op Wound Check, Bleeding Prescriptions: No Action ipratropium-albuterol 0.5 mg-3 mg(2.5 mg base)/3 mL solution for nebulization 3 ml INHALATION Q4H PRN (Reason: shortness of breath or wheezing) RF: 0 escitalopram oxalate [Lexapro] 20 mg tablet 20 mg PO DAILY RF: 0 nitroglycerin 0.4 MG tablet 0.4 mg SUBLINGUAL Q5M PRN (Reason: Chest Pain) RF: 0 oxycodone 5 MG tablet 5 mg PO BID PRN PRN (Reason: Pain) RF: 0 finasteride 5 MG tablet 5 mg PO DAILY RF: 0 isosorbide mononitrate 30 MG tablet 30 mg PO DAILY RF: 0 metoprolol succinate 50 MG tablet 50 mg PO DAILY RF: 0 cilostazol 100 mg tablet 100 mg PO QHS RF: 0 albuterol sulfate 1 INHALER inhaler 1 - 2 puff inhalation Q4H PRN PRN (Reason: Wheezing) RF: 0 diazepam 5 MG tablet 10 mg PO BID PRN (Reason: anxiety) RF: 0 clopidogrel 75 MG tablet 75 mg PO DAILY RF: 0 levothyroxine 88 MCG tablet 88 mcg PO DAILY RF: 0 pantoprazole 40 mg Tablet,Delayed Release (Dr/Ec) 40 mg PO DAILY RF: 0 Anoro Ellipta 62.5-25 mcg/actuation blister with device 1 inh inhalation Q24H RF: 0 insulin aspart U-100 [Novolog Flexpen U-100 Insulin] 100 UNITS/ML insulin pen 5 units subcut TIDCM RF: 0 (DME) blood-glucose meter [OneTouch Verio Flex meter] Mis MISCELLANEOUS RF: 0 loperamide 2 mg capsule 2 mg PO Q4H PRN PRN (Reason: Constipation) RF: 0 amiodarone 200 mg tablet 200 mg PO DAILY RF: 0 allopurinol 100 mg tablet 100 mg PO DAILY RF: 0 aspirin 81 mg tablet,delayed release (DR/EC) 81 mg PO DAILY RF: 0 albuterol sulfate 90 mcg/actuation HFA aerosol inhaler 2 puff INHALATION 4X/DAY RF: 0 ferrous sulfate 325 mg (65 mg iron) tablet,delayed release (DR/EC) 325 mg PO DAILY RF: 0 rosuvastatin 10 mg tablet 10 mg PO DAILY RF: 0 cholecalciferol (vitamin D3) [Vitamin D3] 50 mcg (2,000 unit) capsule 2,000 unit PO DAILY RF: 0 naloxone [Narcan] 4 mg/actuation spray,non-aerosol 4 mg INTRANASAL PRN PRN (Reason: Opioid Reversal) RF: 0 sevelamer carbonate 800 mg tablet 1,600 mg PO TIDCM RF: 0 Tresiba FlexTouch U-100 100 unit/mL (3 mL) insulin pen 10 unit SUBCUT BID Qty: 0 RF: 0 Primary Care Provider: Jonathan Baptiste Referrals: Jonathan Baptiste DO [Primary Care Provider] - As Needed Disposition Disposition: Home, Self Care
[2021-05-28 14:33] VITALS: PULSE 84; RESP 18; O2SAT 98
== END 2021-05-28 14:34 | disposition home or self-care (01) ==
PROVIDERS: Emergency Provider Emergency Medicine; PCP Student in an Organized Health Care Education/Training Program; Visit Provider Emergency Medicine
DX: T82.898A Other specified complication of vascular prosthetic devices, implants and grafts, initial encounter (principal); Z99.2 Dependence on renal dialysis; I25.10 Atherosclerotic heart disease of native coronary artery without angina pectoris; I25.2 Old myocardial infarction; G47.33 Obstructive sleep apnea (adult) (pediatric); Z87.891 Personal history of nicotine dependence; X58.XXXA Exposure to other specified factors, initial encounter; Z99.81 Dependence on supplemental oxygen
CPT/HCPCS: 99282

== ENCOUNTER → 2021-10-04 | Outpatient (CLI) | payer MEDICARE, SELFPAY ==
[2021-10-04 11:40] VITALS: PULSE 105; PULSE 106; PULSE 108; PULSE 110; PULSE 111; PULSE 113; PULSE 115; O2SAT 89; O2SAT 90; O2SAT 91; O2SAT 93
--- NOTE | 2021-10-04 15:23 | WT_ITS ---
PSN 6 Minute Walk Test 6 Minute Walk Test 6 Minute Walk Test: 6 Minute Walk Test PSN:6-Minute Walk Test Start: 10/04/21 11:39 Freq: Status: Active Protocol: [id number].[id number] Document 10/04/21 11:40 PAPA (Rec: 10/04/21 11:42 PAPA [id number]) 6 Minute Walk Test Date Performed 10/04/21 Time Performed 11:15 Height 5 ft 11 in Weight: 91.626 kg Weight in Pounds 202.[address]: Loan Navarrete [employer] Assistive device used: None Pre-test Oxygen Delivery Method Room Air Pulse Ox (%) 93 Pulse Rate (60-100 beats/min) 106 H Dyspnea Lily Scale (0-10) 0 Exertion Lily Scale (6-20) 6 1st minute Oxygen Delivery Method Room Air Pulse Ox (%) 91 Pulse Rate (60-100 beats/min) 108 H 2nd minute Oxygen Delivery Method Room Air Pulse Ox (%) 90 Pulse Rate (60-100 beats/min) 111 H 3rd minute Oxygen Delivery Method Room Air Pulse Ox (%) 90 Pulse Rate (60-100 beats/min) 110 H 4th minute Oxygen Delivery Method Room Air Pulse Ox (%) 90 Pulse Rate (60-100 beats/min) 113 H 5th minute Oxygen Delivery Method Room Air Pulse Ox (%) 89 Pulse Rate (60-100 beats/min) 113 H 6th minute Oxygen Delivery Method Room Air Pulse Ox (%) 89 Pulse Rate (60-100 beats/min) 115 H Dyspnea Lily Scale (0-10) 3 Exertion Lily Scale (6-20) 13 Post-test Oxygen Delivery Method Room Air Pulse Ox (%) 93 Pulse Rate (60-100 beats/min) 105 H Full Laps Walked 14 Partial Lap, Number of Tiles Walked 10 Total Distance Walked (ft) 836 Interpretation Interpretation: The patient was able to ambulate only 836 feet over the course of 6 minutes on room air with no assistive devices or breaks. The patient did have a lower baseline saturation of 93% and desaturated this low was 89%. Patient also had persistent tachycardia throughout testing with a peak heart rate of 115 bpm. These findings are consistent with a cardiopulmonary limitation exercise toleran ce. Recommendations Recommendations: No supplemental oxygen is indicated at this time. However, patient will need to be followed closely given level of desaturation.
== END | disposition home or self-care (01) ==
PROVIDERS: PCP Student in an Organized Health Care Education/Training Program; Referring Provider Nurse Practitioner Acute Care; Visit Provider Nurse Practitioner Acute Care
DX: J44.9 Chronic obstructive pulmonary disease, unspecified (principal)
CPT/HCPCS: 94618

== ENCOUNTER → 2021-10-18 | Outpatient (CLI) | payer MEDICARE, MEDICAID, SELFPAY ==
--- NOTE | 2021-10-19 05:49 | PFTCOMP ---
COMPLETE PULMONARY FUNCTION TEST INTERPRETATION Brief HPI: Patient is a 65-year-old male, currently under the care of Dr. Barlow, who presents to [facility] for complete pulmonary function tests secondary to diagnosis of COPD. Respiratory therapist reports good effort and reproducible results. Interpretation: Forced expiration spirometry shows a severe large airways obstructive ventilatory defect with an FEV1 of 38% predicted. There is no significant bronchodilator response by strict ATS criteria. Spirograms are of good quality and plateau slowly, indicating slowly emptying areas of the lungs. The respiratory flow volume loop shows decreased expiratory flow rates at all lung volumes consistent with airway obstruction. Lung volumes by body plethysmography show a decreased total lung capacity at 4.7 L, 69% predicted. FRC and RV are elevated out of proportion. Lung volume measurements are consistent with air-trapping. Diffusion capacity by carbon monoxide is decreased at 39% predicted. The airway resistance is elevated. Compared to previous pulmonary function tests from 09/09/2017, there is been a significant reduction in FVC by 18%. Impression: Irreversible severe large airways mixed ventilatory defect with a symmetric reduction in diffusing capacity.
== END | disposition home or self-care (01) ==
PROVIDERS: PCP Student in an Organized Health Care Education/Training Program; Referring Provider Nurse Practitioner Acute Care; Visit Provider Nurse Practitioner Acute Care
DX: J44.9 Chronic obstructive pulmonary disease, unspecified (principal)
CPT/HCPCS: 94060; 94726; 94729

== ENCOUNTER 2022-04-01 13:55 | Inpatient (IN) | payer MEDICARE, MEDICAID, SELFPAY ==
[2022-04-01] VITALS (17 sets, daily range): BP systolic 77–114; BP diastolic 46–68; PULSE 92–119; RESP 12–20; TEMP 36.4–36.8; O2SAT 87–97; BMI 27.6; BMI 27.3
--- NOTE | 2022-04-01 13:59 | RAD_ITS ---
STUDY: X-RAY CHEST REASON FOR EXAM: Male, 66 years old. sob TECHNIQUE: XR Chest 1 View COMPARISON: 05.25.21 FINDINGS: There is atherosclerotic calcification of the aortic arch with tortuosity. There are diffuse degenerative changes of the visualized thoracic spine. There is degenerative osteoarthritis of the bilateral shoulders. There are bilateral pleural effusions. Healed right rib fractures. Stable nodularity of the right upper lobe. New infiltrate in the left lower lobe. Normal size heart. Normal mediastinum and elizabeth. Normal visualized pulmonary arteries. There is no demonstrated abnormality of the visualized soft tissue structures of the upper abdomen. RAD/Chest 1 View (Portable) IMPRESSION: There are bilateral pleural effusions. Stable nodularity of the right upper lobe. New infiltrate in the left lower lobe. Electronically Signed: Zaire Hunter MD at 15:08 EST ,
[2022-04-01 14:22] LABS: Absolute Lymphocyte Count 1.66 X10^3/uL (0.83-4.51); Absolute Neutrophil Count 10.4 X10^3/uL (2.0-7.7); Basophil# 0.03 X10^3/uL; Basophil% 0.2 % (0-1); Hematocrit 33.3 % (40-54); Hemoglobin 10.7 g/dL (13.0-16.5); Lymphocyte # 1.66 X10^3/ul (0.83-4.51); Lymphocyte % 12.7 % (19-41); Mean Corp Hgb Conc 32.1 g/dL (32-36); Mean Corpuscular Hgb 29.2 pg (27.0-32.0); Mean Platelet Vol. 11.8 fl (6.2-12.0); Monocyte# 0.66 X10^3/uL; Monocyte% 5.1 % (0-10); NRBC Flagged by Analyzer 0 % (0-5); Neutrophil # 10.35 X10^3/uL (2.7-7.7); Neutrophil % 79.4 % (47-70); POSITIVE MORPHOLOGY YES; Platelet Count 327 K/mm3 (150-450); RBC Distribution Width CV 13.2 % (11.6-14.6); RBC Distribution Width SD 43.7 fl (35.1-43.9); Red Blood Count 3.66 M/mm3 (4.6-6.2)
[2022-04-01 14:28] LABS: Anion Gap 9 (5-15); BUN 49 mg/dL (7-18); BUN/Creat Ratio 12.3 RATIO (10-20); Chloride 97 mmol/L (98-107); Creatinine, Serum 3.99 mg/dL (0.70-1.30); EST Glomerular Filtration Rate 16 mL/min (>60); Est Glom Filt Rate - Afr Amer 19 mL/min (>60); Estimated Creatinine Clearance 19.13 ml/min; Glucose 153 mg/dL (74-106); Potassium 3.7 mmol/L (3.5-5.1); Sodium Level 136 mmol/L (136-145)
[2022-04-01 14:29] LABS: Differential Indicated SCAN CRITERIA MET
--- NOTE | 2022-04-01 14:46 | EKG12_ITS ---
Test Reason : SOB Blood Pressure : / mmHG Vent. Rate : 096 BPM Atrial Rate : 096 BPM P-R Int : 174 ms QRS Dur : 084 ms QT Int : 372 ms P-R-T Axes : 031 047 107 degrees QTc Int : 469 ms Normal sinus rhythm Nonspecific T wave abnormality Abnormal ECG Confirmed by LAYO ASIF, THU ([id number]), news video editor JARED MADRID ([id number]) on 04/02/2022 9:42:32 AM Referred By: MATT Confirmed By:THU VASQUES MD
--- NOTE | 2022-04-01 14:48 | EDS_ITS ---
HPI History of Present Illness Chief Complaint: Shortness of Breath Detail of Chief Complaint: Increase shortness of breath, cough and wheezing Informant: patient Onset/Context/Timing Onset: Days Context: gradual Timing: Continuous and Waxes and wanes Current Severity: Mild Maximum Severity: Moderate Worsened by: Exertion and Coughing Relieved by: Oxygen Associated Symptoms cough; Negative for rhinorrhea, post nasal drip, ear pain, fever, sore throat, subjective, chills or sweats Chest Pain: Positive for None Narrative Narrative: Patient is a 66-year-old male with history of COPD, heart failure with reduced ejection fraction, acute renal failure on hemodialysis, anemia of chronic renal failure, atherosclerotic heart disease, colon cancer, obstructive sleep apnea, paroxysmal atrial fibrillation, who presents for shortness of breath. He states 2 days ago he was admitted to [facility] for touch of pneumonia . He states he was not discharged to home on antibiotics or steroids. He did receive antibiotics while in the hospital and did receive steroids. He denies fever, chills night sweats. He denies rhinorrhea, congestion postnasal drainage sore throat. Does have a cough which is gently productive. He denies history of PE or DVT. He denies leg pain, swelling discoloration. He denies black or maroon-colored stool. Per notes from tobacco sweeper he has stage III severe COPD by Gold classification. PE Risk Factors: Positive for Cancer; Negative for OCP + Smoking + > 35, Prior DVT or PE, Recent immobilization, Recent surgery or Recent travel Prior similar symptoms: Yes Recent Illness/[facility]ospital[facility]: [facility] Medical History Acute exacerbation of chronic obstructive pulmonary disease (COPD) Acute HFrEF (heart failure with reduced ejection fraction) Acute renal failure superimposed on stage 4 chronic kidney disease Acute respiratory failure with hypoxemia Anemia of chronic renal failure Anxiety Atherosclerosis of coronary artery of [place] heart without angina pectoris Back pain C. difficile colitis Cancer Cardiology follow-up encounter Cholelithiasis Chronic renal failure, stage 4 (severe) Colon cancer COPD (chronic obstructive pulmonary disease) CPAP (continuous positive airway pressure) dependence Depression DM type 2 causing CKD stage 4 Elevated troponin Essential (primary) hypertension Former smoker Gastric reflux Gastroenteritis Gout Heme + stool Hemorrhoids High cholesterol History of echocardiogram History of GI bleed History of IBS Hyperkalemia, diminished renal excretion Hyperlipidemia Hypertension Hyponatremia Hypotension, unspecified Increased PTH level Infectious encephalopathy Influenza B Injury of head and neck Insulin dependent diabetes mellitus Iron deficiency anemia Ischemic cardiomyopathy Low vitamin D level Lower GI bleed Metabolic acidosis Myocardial infarct Nicotine dependence, cigarettes, in remission Nocturnal hypoxia Non-STEMI (non-ST elevated myocardial infarction) Noncompliance with CPAP treatment NSAID long-term use NSTEMI (non-ST elevated myocardial infarction) (07/2018) NSVT (nonsustained ventricular tachycardia) On home oxygen therapy LADARIUS (obstructive sleep apnea) Paroxysmal atrial fibrillation Peripheral vascular disease Pseudomembranous enterocolitis Radiculopathy affecting upper extremity Septic shock Severe sepsis Shortness of breath on exertion Skin tear Sleep apnea Stage 3 severe COPD by GOLD classification Streptococcal pneumonia Uremia of renal origin Urinary retention due to benign prostatic hyperplasia Wears dentures Home Medications nitroglycerin 0.4 mg sublingual tablet 0.4 mg sublingual Q5M PRN Chest Pain 05/14/17 [History Last Taken Unknown] oxycodone 5 mg tablet 5 mg PO BID PRN PRN Pain 05/14/17 [History Last Taken 04/01/22] finasteride 5 mg tablet 5 mg PO DAILY prostate 09/15/17 [History Last Taken 04/01/22] isosorbide mononitrate 30 mg tablet,extended release 24 hr 30 mg PO DAILY heart 09/15/17 [History Last Taken 04/01/22] diazepam 5 mg tablet 5 - 10 mg PO BID PRN anxiety 05/12/18 [History Last Taken 04/01/22] cilostazol 100 mg tablet 100 mg PO QHS cirrulation 09/30/19 [History Last Taken 03/31/22] escitalopram oxalate 20 mg tablet (Lexapro) 20 mg PO DAILY depression 09/30/19 [History Last Taken 03/31/22] ipratropium 0.5 mg-albuterol 3 mg (2.5 mg base)/3 mL nebulization soln 3 ml inhalation Q4H PRN shortness of breath or wheezing 09/30/19 [History Last Taken 04/01/22] levothyroxine 88 mcg tablet 88 mcg PO DAILY thyroid 12/07/19 [History Last Taken 04/01/22] umeclidinium 62.5 mcg-vilanterol 25 mcg/actuation powdr for inhalation (Anoro Ellipta) 1 inh inhalation Q24H breathing 08/31/20 [History Last Taken 04/01/22] albuterol sulfate 90 mcg/actuation aerosol inhaler 2 puff inhalation 4X/DAY breathing 04/28/21 [History Last Taken 04/01/22] aspirin 81 mg tablet,delayed release 81 mg PO DAILY heart health 04/28/21 [History Last Taken 04/01/22] cholecalciferol (vitamin D3) 50 mcg (2,000 unit) capsule (Vitamin D3) 2,000 unit PO DAILY vitamin 04/28/21 [History Last Taken 04/01/22] ferrous sulfate 325 mg (65 mg iron) tablet,delayed release 325 mg PO DAILY supplement 04/28/21 [History Last Taken 04/01/22] loperamide 2 mg capsule 2 mg PO Q4H PRN PRN Constipation 04/28/21 [History Last Taken 2 Days Ago ~03/30/22] rosuvastatin 10 mg tablet 10 mg PO DAILY cholesterol 04/28/21 [History Last Taken 04/01/22] clopidogrel 75 mg tablet 75 mg PO DAILY HEART 04/01/22 [History Last Taken 04/01/22] insulin degludec 100 unit/mL (3 mL) subcutaneous pen (Tresiba FlexTouch U-100 insulin) 25 unit subcut BID Check with primary doctor 04/01/22 [History Last Taken 04/01/22] insulin lispro 100 unit/mL subcutaneous pen See Rx Instructions .Route .COMPLEX DM 04/01/22 [History Last Taken 04/01/22] Allergy/AdvReac Type Severity Reaction Status Date / Time No Known Allergies Allergy Verified 04/01/22 14:20 Family History Father Leukemia Mother COPD (chronic obstructive pulmonary disease) Surgical History H/O colectomy H/O pneumonectomy History of coronary artery stent placement (02/28/21) History of esophagogastroduodenoscopy (EGD) History of left heart catheterization (02/27/21) Hx of craniotomy S/P arteriovenous (AV) fistula creation Status post colon resection Status post insertion of dialysis catheter (07/2018) Social History household members: spouse housing: other details: mobile home current occupational status: disabled pets and animals: Yes pets and animals: dog(s) Smoking Status: Current every day smoker tobacco type: cigarettes Tobacco: How many years used: 40 second hand exposure: No alcohol intake: never substance use type: does not use ROS ROS ED Constitutional Constitutional ED: Denies chills, fever(s), sweats or weight loss Eyes Eyes: Denies blurry vision, change in vision or diplopia ENT ENT ED: Denies ear pain, rhinorrhea or sore throat Cardiovascular Cardiovascular: Denies chest pain, orthopnea, palpitations, paroxysmal nocturnal dyspnea or racing heartbeat Respiratory/Chest Respiratory/Chest: Reports cough, dyspnea and dyspnea on exertion; Denies orthopnea or paroxysmal nocturnal dyspnea Gastrointestinal Gastrointestinal: Denies abdominal pain, constipation, diarrhea, melena, nausea or vomiting Genitourinary Genitourinary ED: Denies dysuria, hematuria or urinary frequency Musculoskeletal Musculoskeletal: Denies arthralgias, back pain, myalgias or neck pain Integumentary Denies rash Neurologic Neurologic: Reports weakness; Denies headache(s) or paresthesias Psychiatric Psychiatric: Denies anxiety or depression Endocrine Endocrinology: Denies cold intolerance or heat intolerance Hematologic/Lymphatic Hematologic/Lymphatic: Denies easy bleeding or easy bruising EXAM Physical Exam Const Vital Signs: 04/01/22 13:56 04/01/22 14:13 04/01/22 14:13 Temperature 97.7 F L Temperature Source Temporal Pulse Rate 119 H Respiratory Rate 16 17 Respiratory Effort Respiratory Depth Respiratory Pattern Blood Pressure 105/68 Blood Pressure Mean 80 Pulse Ox 92 88 87 Oxygen Delivery Method Room Air Room Air Room Air Oxygen Flow Rate (L/min) 04/01/22 14:15 04/01/22 14:15 04/01/22 14:21 Temperature 98.0 F 98.0 F Temperature Source Oral Oral Pulse Rate 104 H 106 H Respiratory Rate 14 16 Respiratory Effort Short of Breath Labored Respiratory Depth Shallow Respiratory Pattern Normal Blood Pressure 77/46 L 77/46 L Blood Pressure Mean 56 56 Pulse Ox 93 93 Oxygen Delivery Method Nasal Cannula Nasal Cannula Nasal Cannula Oxygen Flow Rate (L/min) 1.5 1.5 2 04/01/22 14:35 04/01/22 15:02 04/01/22 15:51 Temperature 98.3 F Temperature Source Oral Pulse Rate 99 102 H Respiratory Rate 19 H 17 Respiratory Effort Respiratory Depth Respiratory Pattern Normal Blood Pressure 92/52 L 91/57 L Blood Pressure Mean 65 68 Pulse Ox 90 Oxygen Delivery Method Nasal Cannula Oxygen Flow Rate (L/min) 04/01/22 15:59 04/01/22 16:00 Temperature 98.3 F Temperature Source Oral Pulse Rate 102 H 101 H Respiratory Rate 19 H 12 Respiratory Effort Respiratory Depth Respiratory Pattern Blood Pressure 91/57 L 102/65 Blood Pressure Mean 68 77 Pulse Ox 92 92 Oxygen Delivery Method Nasal Cannula Nasal Cannula Oxygen Flow Rate (L/min) 2 2 Positive well nourished and well developed Constitutional Narrative: MonitorHe was placed on oxygen since pulse ox was 80% on room air. He is present on 2 L by nasal cannula. Vital signs reveals the patient was hypotensive with a pressure as low as 77 systolic with mean arterial pressure 56. Patient attributed this to the fact that he just had dialysis and its not uncommon for him to have a drop in blood pressure. Patient at this time does appear slightly tachypneic. There is no use of accessory muscles. General Appearance ED: well developed and NAD; Negative for pallor HEENT Reports dry mucous membranes HEENT Narrative: Head is atraumatic normocephalic. Ears normal. Nares patent. Uvula midline. No abnormality the posterior pharynx. Mouth ED: Yes dry mucous membranes Mouth: dry mucous membranes Eyes Negative for PERRL or EOMs intact bilaterally General Eye ED: Yes pale conjunctiva; Negative for scleral icterus Neck no lymphadenopathy, supple, no meningeal signs and no JVD Neck Narrative: Trachea is midline. Resp normal respiratory effort and No clear to auscultation bilaterally Resp Narrative: Patient has anticipatory rales noted. There is expiratory high-pitched wheezes noted that are scattered. Asked aphasia slightly increased. Auscultation: rales Cardio regular rhythm, S1 normal heart sound, S2 normal heart sound and no murmurs Rate: tachycardic GI non-tender, non-distended and no masses Auscultation: normoactive bowel sounds Palpation: soft Extremity normal to inspection General Extremety ED: Negative for edema or tenderness General Extremity: Negative for edema Neuro oriented x3, CN's II-XII intact bilaterally and no sensory deficits noted Psych mental status grossly normal Skin no wounds and skin turgor normal General Skin Exam: Negative for jaundice or pallor Sepsis Attestation Date exam was performed: 04/01/22 Time exam was performed: 15:32 Possible Source of Sepsis: Pulmonary Sepsis Organ Dysfunction Criteria Present: SBP < 90 mmHg or MAP < 65 mmHg and Lactic Acid > 2 mmol/L Fluid Resuscitation Fluid Resuscitation ordered: Lesser volume fluid bolus ordered Reason for lesser fluid bolus:: Concern for fluid overload and Renal Failure (Suspect patient is hypovolemic due to dialysis prior to arrival. He presently has a systolic greater than 90 and mean arterial greater than 65.) MDM MDM MDM Narrative Medical decision making narrative: Patient presents with hypotension which may be due to hypovolemia status post dialysis. Will observe. Clinically patient has exacerbated COPD. We will attempt to get records from [facility]. EKG was obtained to rule out cardiac ischemia. Chest x-ray to evaluate for pneumonia and rule out pneumothorax. Appropriate blood work was obtained to assess white count, H&H, electrolytes. Also to evaluate glucose since patient is an insulin-dependent diabetic. Review of records from general medicine, pulmonary and cardiovascular indicates patient has a history of ischemic cardiomyopathy. He does have significant COPD. He he is requiring oxygen at this time. He normally does not need oxygen. Suspect patient will need admission to the hospital. Nurse protocol was initiated. Additional labs were added after patient was seen. He also was treated with dual, albuterol and Solu-Medrol. I was informed patient's lactate is 3.3. With elevated white count, tachycardia, hypotension and source i.e. left lower lobe infiltrate on chest x- ray blood cultures were ordered prior to administration antibiotics. Because he is a dialysis patient he was treated with Zosyn and vancomycin. He also was recently admitted for touch of pneumonia. Lab Data Attestation: I reviewed the patient's lab results. Lab results narrative: White count is elevated with slight shift. There is no bandemia. Patient does have mild anemia. BUN and creatinine are elevated which 1 would expect in a patient with end-stage renal disease on hemodialysis. Glucose is elevated 153 Labs: Laboratory Results - last 24 hr 04/01/22 04/01/22 04/01/22 14:05 14:05 14:50 WBC 13.0 H RBC 3.66 L Hgb 10.7 L Hct 33.3 L MCV 91.0 MCH 29.2 MCHC 32.1 RDW Std Deviation 43.7 RDW Coeff of Joana 13.2 Plt Count 327 MPV 11.8 Immature Gran % (Auto) 2.600 H Neut % (Auto) 79.4 H Lymph % (Auto) 12.7 L [place] % (Auto) 5.1 Eos % (Auto) 0.0 Baso % (Auto) 0.2 Absolute Neuts (auto) 10.4 H Absolute Lymphs (auto) 1.66 Nucleated RBC % 0 Reactive Lymphocytes 1+ Sodium 136 Potassium 3.7 Chloride 97 L Carbon Dioxide 30.0 Anion Gap 9 BUN 49 H Creatinine 3.99 H Estim Creat Clear Calc 19.13 Est GFR (MDRD) Af Amer 19 L Est GFR (MDRD) Non-Af 16 L BUN/Creatinine Ratio 12.3 Glucose 153 H Lactic Acid 3.3 H* Calcium 9.0 Radiography Chest X-Ray - ED: 1 View and Read by ED Physician (There is an infiltrate left lower lobe. There is evidence of minimal bilateral pleural effusions. There is chronic pulmonary changes noted. Cardiac silhouette and size unremarkable. Oss eous structures are unremarkable. This independent reviewed interpreted by me. [id number]) Diagnostic Testing: Clinical Impression(s) from Imaging Studies Chest X-Ray 04/01/22 13:59 IMPRESSION: There are bilateral pleural effusions. Stable nodularity of the right upper lobe. New infiltrate in the left lower lobe. Electronically Signed: Zaire Hunter MD at 15:08 EST Reading Location ID and State: [facility] / [place] , Service support , EKG Initial EKG: Attestation: I personally reviewed and interpreted this EKG as follows: Interpretation: Sinus Rhythm (Rate is 96. ME interval is under 74 ms. Cures duration 84 ms. QT durations are 72 ms. [place] is normal. There is nonspecific changes versus artifact.) Critical Care Time Critical Care Time: Yes Critical care time (excluding procedures): 30-74 minutes (33), Including time spent: (History, physical, documentation, review of prior records, independent interpretation of laboratory results initiation of therapy), Discussing w/Patient &/or Family/Financial Accounting Manager, Discussing w/Consultants and Arranging Admission or Transfer Discharge Plan Dx/Rx/DC Orders Clinical Impression: Severe sepsis with acute organ dysfunction, COPD (chronic obstructive pulmonary disease), Left lower lobe pneumonia, Acute hypoxemic respiratory failure, Acute bronchospasm, Acute hypotension Disposition Disposition: Acute Care Hospital [facility] Discharge Date/Time: 04/01/22 17:05
[2022-04-01] MEDS: MethylPREDNISolone 125 MG/2 ML Vial IV (14:53)
[2022-04-01] MEDS: Ipratropium/Albuterol Sulfate 3 ML AMPUL.NEB INHALATION ×2 (14:59→22:50)
[2022-04-01] MEDS: Albuterol 2.5 MG/3 ML VIAL.NEB. INHALATION ×3 (14:59)
[2022-04-01 15:33] LABS: Lactic Acid 3.3 mmol/L (0.4-1.9)
[2022-04-01 15:44] LABS: Reactive Lymphocyte 1+
--- NOTE | 2022-04-01 17:03 | PCM.HP.STD ---
HPI - General General Date of Admission: 04/01/22 Date of Service: 04/01/22 Chief Complaint: Shortness of breath HPI Narrative BARI KELLY, is a 66 M who presents to the emergency room at [facility] with chief complaint of shortness of breath, patient states he was discharged from the hospital yesterday ([place] in [place])-I talked briefly with his patient safety sitter by phone today who states that the patient signed out AMA yesterday. Patient told me that he was treated for pneumonia and received antibiotics during his hospital stay. Patient has a history of chronic obstructive pulmonary disease, he does not use home oxygen although he says he has an oxygen tank at home from when he was on oxygen before-he states he uses it occasionally when he feels he needs to use oxygen. Patient still smokes-he says he smokes a few cigarettes a day. Patient denies any fevers or chills, he denies any purulent sputum production, he states that today he felt more short of breath than usual. Work-up in the emergency room included labs which showed an elevated white blood cell count at 13, patient's creatinine was 3.99, BUN was 49, and lactic acid was 3.3. Patient had a chest x-ray which showed an infiltrate in the left lower lobe, there are bilateral pleural effusions noted to be present and a stable nodularity of the right upper lobe. Patient states he underwent dialysis today-he sees Dr. Magnaa as his patient safety sitter. Patient will be admitted to PCU for hypoxia and left lower lobe pneumonia with sepsis, he will be treated with IV antibiotics and aerosol treatments, patient will be seen in consultation by nephrology-Next dialysis day is Friday. Pulse ox will be monitored. Patient initially had low blood pressure in the emergency room which corrected with administration of some fluids in the ER. [facility] Medical History Acute exacerbation of chronic obstructive pulmonary disease (COPD) Acute HFrEF (heart failure with reduced ejection fraction) Acute renal failure superimposed on stage 4 chronic kidney disease Acute respiratory failure with hypoxemia Anemia of chronic renal failure Anxiety Atherosclerosis of coronary artery of [place] heart without angina pectoris Back pain C. difficile colitis Cancer Cardiology follow-up encounter Cholelithiasis Chronic renal failure, stage 4 (severe) Colon cancer COPD (chronic obstructive pulmonary disease) CPAP (continuous positive airway pressure) dependence Depression DM type 2 causing CKD stage 4 Elevated troponin Essential (primary) hypertension Former smoker Gastric reflux Gastroenteritis Gout Heme + stool Hemorrhoids High cholesterol History of echocardiogram History of GI bleed History of IBS Hyperkalemia, diminished renal excretion Hyperlipidemia Hypertension Hyponatremia Hypotension, unspecified Increased PTH level Infectious encephalopathy Influenza B Injury of head and neck Insulin dependent diabetes mellitus Iron deficiency anemia Ischemic cardiomyopathy Low vitamin D level Lower GI bleed Metabolic acidosis Myocardial infarct Nicotine dependence, cigarettes, in remission Nocturnal hypoxia Non-STEMI (non-ST elevated myocardial infarction) Noncompliance with CPAP treatment NSAID long-term use NSTEMI (non-ST elevated myocardial infarction) (07/2018) NSVT (nonsustained ventricular tachycardia) On home oxygen therapy LADARIUS (obstructive sleep apnea) Paroxysmal atrial fibrillation Peripheral vascular disease Pseudomembranous enterocolitis Radiculopathy affecting upper extremity Septic shock Severe sepsis Shortness of breath on exertion Skin tear Sleep apnea Stage 3 severe COPD by GOLD classification Streptococcal pneumonia Uremia of renal origin Urinary retention due to benign prostatic hyperplasia Wears dentures Home Medications nitroglycerin 0.4 mg sublingual tablet 0.4 mg sublingual Q5M PRN Chest Pain 05/14/17 [History Last Taken Unknown] oxycodone 5 mg tablet 5 mg PO BID PRN PRN Pain 05/14/17 [History Last Taken 04/01/22] finasteride 5 mg tablet 5 mg PO DAILY prostate 09/15/17 [History Last Taken 04/01/22] isosorbide mononitrate 30 mg tablet,extended release 24 hr 30 mg PO DAILY heart 09/15/17 [History Last Taken 04/01/22] diazepam 5 mg tablet 5 - 10 mg PO BID PRN anxiety 05/12/18 [History Last Taken 04/01/22] cilostazol 100 mg tablet 100 mg PO QHS cirrulation 09/30/19 [History Last Taken 03/31/22] escitalopram oxalate 20 mg tablet (Lexapro) 20 mg PO DAILY depression 09/30/19 [History Last Taken 03/31/22] ipratropium 0.5 mg-albuterol 3 mg (2.5 mg base)/3 mL nebulization soln 3 ml inhalation Q4H PRN shortness of breath or wheezing 09/30/19 [History Last Taken 04/01/22] levothyroxine 88 mcg tablet 88 mcg PO DAILY thyroid 12/07/19 [History Last Taken 04/01/22] umeclidinium 62.5 mcg-vilanterol 25 mcg/actuation powdr for inhalation (Anoro Ellipta) 1 inh inhalation Q24H breathing 08/31/20 [History Last Taken 04/01/22] albuterol sulfate 90 mcg/actuation aerosol inhaler 2 puff inhalation 4X/DAY breathing 04/28/21 [History Last Taken 04/01/22] aspirin 81 mg tablet,delayed release 81 mg PO DAILY heart health 04/28/21 [History Last Taken 04/01/22] cholecalciferol (vitamin D3) 50 mcg (2,000 unit) capsule (Vitamin D3) 2,000 unit PO DAILY vitamin 04/28/21 [History Last Taken 04/01/22] ferrous sulfate 325 mg (65 mg iron) tablet,delayed release 325 mg PO DAILY supplement 04/28/21 [History Last Taken 04/01/22] loperamide 2 mg capsule 2 mg PO Q4H PRN PRN Constipation 04/28/21 [History Last Taken 2 Days Ago ~03/30/22] rosuvastatin 10 mg tablet 10 mg PO DAILY cholesterol 04/28/21 [History Last Taken 04/01/22] clopidogrel 75 mg tablet 75 mg PO DAILY HEART 04/01/22 [History Last Taken 04/01/22] insulin degludec 100 unit/mL (3 mL) subcutaneous pen (Tresiba FlexTouch U-100 insulin) 25 unit subcut BID Check with primary doctor 04/01/22 [History Last Taken 04/01/22] insulin lispro 100 unit/mL subcutaneous pen See Rx Instructions .Route .COMPLEX DM 04/01/22 [History Last Taken 04/01/22] Allergy/AdvReac Type Severity Reaction Status Date / Time No Known Allergies Allergy Verified 04/01/22 14:20 Family History Father Leukemia Mother COPD (chronic obstructive pulmonary disease) Surgical History H/O colectomy H/O pneumonectomy History of coronary artery stent placement (02/28/21) History of esophagogastroduodenoscopy (EGD) History of left heart catheterization (02/27/21) Hx of craniotomy S/P arteriovenous (AV) fistula creation Status post colon resection Status post insertion of dialysis catheter (07/2018) Social History household members: spouse housing: other details: mobile home current occupational status: disabled pets and animals: Yes pets and animals: dog(s) Smoking Status: Current every day smoker tobacco type: cigarettes Tobacco: How many years used: 40 second hand exposure: No alcohol intake: never substance use type: does not use ROS Constitutional Constitutional: Denies anorexia, change in weight, chills, fever(s), malaise, night sweats or weakness Eyes Eyes: Denies blurry vision, change in vision, discharge from eye(s) or eye pain Cardiovascular Cardiovascular: Reports dyspnea on exertion; Denies chest pain, claudication, edema or palpitations Respiratory/Chest Respiratory/Chest: Reports dyspnea and wheezing; Denies cough, hemoptysis, productive cough, shortness of breath at rest or shortness of breath with exertion Gastrointestinal Gastrointestinal: Denies abdominal pain, constipation, diarrhea, dyspepsia, hematemesis, hematochezia, melena, nausea or vomiting Genitourinary Genitourinary: Denies dysuria, hematuria, nocturia, urinary frequency, urinary hesitancy, urinary incontinence or urinary urgency Musculoskeletal Musculoskeletal: Denies back pain, joint pain, joint stiffness, joint swelling, myalgias or neck pain Neurologic Neurologic: Denies abnormal gait, abnormal speech, dizziness, focal weakness, headache(s), loss of vision, numbness, other visual disturbances, paresthesias, syncope or tingling Psychiatric Psychiatric: Denies anxiety, cognitive impairment, depression, irritability, mood swings or suicidal ideation Endocrine Endocrinology: Denies change in body appearance, cold intolerance, excessive sweating, heat intolerance, polydipsia or polyuria Hematologic/Lymphatic Hematologic/Lymphatic: Denies none, anemia, easy bleeding, easy bruising or lymphadenopathy Allergic/Immunologic Allergic/Immunologic: Denies rhinitis, urticaria, eczemia or asthma Vital Signs Vital Signs Vital Signs: 04/01/22 13:56 04/01/22 14:13 04/01/22 14:13 Temperature 97.7 F L Temperature Source Temporal Pulse Rate 119 H Respiratory Rate 16 17 Respiratory Effort Respiratory Depth Respiratory Pattern Blood Pressure 105/68 Blood Pressure Mean 80 Pulse Ox 92 88 87 Oxygen Delivery Method Room Air Room Air Room Air Oxygen Flow Rate (L/min) 04/01/22 14:15 04/01/22 14:15 04/01/22 14:21 Temperature 98.0 F 98.0 F Temperature Source Oral Oral Pulse Rate 104 H 106 H Respiratory Rate 14 16 Respiratory Effort Short of Breath Labored Respiratory Depth Shallow Respiratory Pattern Normal Blood Pressure 77/46 L 77/46 L Blood Pressure Mean 56 56 Pulse Ox 93 93 Oxygen Delivery Method Nasal Cannula Nasal Cannula Nasal Cannula Oxygen Flow Rate (L/min) 1.5 1.5 2 04/01/22 14:35 04/01/22 15:02 04/01/22 15:51 Temperature 98.3 F Temperature Source Oral Pulse Rate 99 102 H Respiratory Rate 19 H 17 Respiratory Effort Respiratory Depth Respiratory Pattern Normal Blood Pressure 92/52 L 91/57 L Blood Pressure Mean 65 68 Pulse Ox 90 Oxygen Delivery Method Nasal Cannula Oxygen Flow Rate (L/min) 04/01/22 15:59 04/01/22 16:00 Temperature 98.3 F Temperature Source Oral Pulse Rate 102 H 101 H Respiratory Rate 19 H 92 H Respiratory Effort Respiratory Depth Respiratory Pattern Blood Pressure 91/57 L 102/65 Blood Pressure Mean 68 77 Pulse Ox 92 12 Oxygen Delivery Method Nasal Cannula Nasal Cannula Oxygen Flow Rate (L/min) 2 2 Weight Weight: 89.811 kg Body Mass Index (BMI) 27.6 Physical Exam Const alert, oriented x3 and no apparent distress Constitutional Narrative: Patient appears older than his stated age General Appearance: cooperative, well kempt and well developed Orientation / Consciousness: awake, oriented to person, oriented to place and oriented to time HEENT normocephalic, head/scalp atraumatic, hearing grossly normal bilaterally and moist oral mucous membranes Eyes PERRL, EOMs intact bilaterally and conjunctivae normal Neck supple, no JVD, thyroid normal and no carotid bruits General: trachea midline Resp normal respiratory effort, no retractions and no use of accessory muscles Resp Narrative: Patient has expiratory wheezing over the left lung field, decreased breath sounds are noted over the right lung field Auscultation: Negative for rales, rhonchi or wheezes Cardio regular rate, regular rhythm, S1 normal heart sound, S2 normal heart sound, no murmurs, no rub, no gallops, no clicks and no JVD GI normal to inspection, nondistended, normoactive bowel sounds, soft to palpation, non-tender and non-distended Extremity no clubbing, cyanosis or edema Skin no rashes or lesions noted General Skin Exam: no breakdown Neuro oriented x3, CN's II-XII intact bilaterally, moves all extremities, no focal motor deficits and no sensory deficits noted Sensorium / Orientation: awake and alert Speech: speech normal Psych affect normal Results Lab / Micro Data Result Diagrams: 04/01/22 14:05 04/01/22 14:05 Labs: Laboratory Results - last 24 hr 04/01/22 14:05: WBC 13.0 H, RBC 3.66 L, Hgb 10.7 L, Hct 33.3 L, MCV 91.0, MCH 29.2, MCHC 32.1, RDW Std Deviation 43.7, RDW Coeff of Joana 13.2, Plt Count 327, MPV 11.8, Immature Gran % (Auto) 2.600 H, Neut % (Auto) 79.4 H, Lymph % (Auto) 12.7 L, [place] % (Auto) 5.1, Eos % (Auto) 0.0, Baso % (Auto) 0.2, Absolute Neuts (auto) 10.4 H, Absolute Lymphs (auto) 1.66, Nucleated RBC % 0, Reactive Lymphocytes 1+ 04/01/22 14:05: Sodium 136, Potassium 3.7, Chloride 97 L, Carbon Dioxide 30.0, Anion Gap 9, BUN 49 H, Creatinine 3.99 H, Estim Creat Clear Calc 19.13, Est GFR (MDRD) Af Amer 19 L, Est GFR (MDRD) Non-Af 16 L, BUN/Creatinine Ratio 12.3, Glucose 153 H, Calcium 9.0 04/01/22 14:50: Lactic Acid 3.3 H* Micro: Microbiology 04/01/22 14:35 Nasal Secretion SARS-CoV-2 Antigen (Rapid) - Final Radiology Impression Chest X-Ray 04/01/22 13:59 IMPRESSION: There are bilateral pleural effusions. Stable nodularity of the right upper lobe. New infiltrate in the left lower lobe. Electronically Signed: Zaire Hunter MD at 15:08 EST , Assessment & Plan Assessment/Plan (1) Left lower lobe pneumonia: PLAN: Plan 1. Sepsis with left lower lobe community-acquired pneumonia-patient will be admitted to PCU, he will be maintained on IV Zosyn, patient will receive aerosol treatments #2 left lower lobe community-acquired pneumonia-patient will be treated with IV Zosyn, urine antigen for Legionella and Streptococcus will be ordered, patient's COVID test was negative, respiratory panel will be obtained #3 chronic obstructive pulmonary disease-with noncompliance-patient still smokes at home, he states he is not prescribed any oxygen but has an oxygen tank at home which he uses when he is short of breath. Patient does follow-up with pulmonary medicine (Dr. Barlow). I do not feel that pulmonary medicine needs to see the patient at this time. #4 hypoxia secondary to #2-patient's pulse ox will be monitored, according to the patient's last pulmonary office visit in June 2021, patient is supposed to be on 2.5 to 3 L of oxygen while sleeping #5 end-stage renal disease on dialysis-I talked briefly with his patient safety sitter today by phone, Dr. Magana will be consulted to see him in the hospital #6 noncompliance with medical regimen-it appears that the patient signed out AMA from [facility] yesterday #7 ischemic cardiomyopathy-complicates care, management, recovery, and prognosis Total clinical time spent by myself addressing the patient's medical issues, reviewing all the data, and collaborating with the patient's care team: 75 minutes Charges/Coding Visit Charges Inpatient E&M: 07000 Init Hosp L3
--- NOTE | 2022-04-01 17:04 | ED.RN ---
IV placed with ultrasound. blood returned noted prior to infusion of medications. no infiltration visible with flush.
[2022-04-01 18:58] LABS: Reflex Lactate? Y
[2022-04-01 20:39] LABS: Lactic Acid 3.5 mmol/L (0.4-1.9)
[2022-04-01] MEDS: Cilostazol 50 MG Tablet 100 MG PO (22:18)
[2022-04-01] MEDS: Heparin Injection (Vial) 5,000 UNIT/ML VIAL 5000 UNIT SC (22:18)
[2022-04-01] MEDS: Atorvastatin Calcium 20 MG Tablet PO (22:18)
[2022-04-01] MEDS: Insulin Glargine-YFGN 100 UNIT/ML Pen 25 UNIT SC (22:18)
--- NOTE | 2022-04-01 22:20 | NURSING ---
pt noted attempting to urinate to provide a sample, pt unable to void at this time. pt receives dialysis treatments.
[2022-04-01] MEDS: Insulin Lispro 100 UNIT/ML INSULN.PEN SC (22:28)
[2022-04-01] MEDS: Budesonide Respules 0.5 MG/2 ML AMPUL.NEB. INHALATION (22:51)
[2022-04-01 23:31] LABS: Bedside Glucose 347 mg/dL (74-106)
[2022-04-02] VITALS (11 sets, daily range): BP systolic 109–121; BP diastolic 55–64; PULSE 87–102; RESP 18–20; TEMP 36.4–37.3; O2SAT 91–98
[2022-04-02 06:08] LABS: Hemoglobin 8.7 g/dL (13.0-16.5); Mean Corp Hgb Conc 31.1 g/dL (32-36); Mean Corpuscular Hgb 28.6 pg (27.0-32.0); Mean Corpuscular Volume 92.1 fL (80-94); Mean Platelet Vol. 12.4 fl (6.2-12.0); POSITIVE COUNT YES; POSITIVE DIFFERENTIAL YES; POSITIVE MORPHOLOGY YES; Platelet Count 254 K/mm3 (150-450); RBC Distribution Width CV 13.2 % (11.6-14.6); RBC Distribution Width SD 44.4 fl (35.1-43.9); Red Blood Count 3.04 M/mm3 (4.6-6.2); White Blood Count 6.3 K/mm3 (4.4-11.0)
[2022-04-02] MEDS: Insulin Lispro 100 UNIT/ML INSULN.PEN SC ×4 (06:09→21:56)
[2022-04-02] MEDS: Levothyroxine 88 MCG Tablet PO (06:09)
[2022-04-02 06:21] LABS: Differential Indicated MANUAL DIFF
[2022-04-02 06:45] LABS: Anion Gap 11 (5-15); BUN 72 mg/dL (7-18); BUN/Creat Ratio 13.2 RATIO (10-20); Calcium,Total 8.2 mg/dL (8.5-10.1); Chloride 99 mmol/L (98-107); Creatinine, Serum 5.44 mg/dL (0.70-1.30); EST Glomerular Filtration Rate 11 mL/min (>60); Est Glom Filt Rate - Afr Amer 14 mL/min (>60); Estimated Creatinine Clearance 14.03 ml/min; Glucose 345 mg/dL (74-106); Potassium 4.5 mmol/L (3.5-5.1); Sodium Level 137 mmol/L (136-145)
[2022-04-02 06:50] LABS: Bedside Glucose 326 mg/dL (74-106)
[2022-04-02 07:01] LABS: Lymphocyte 13 % (19-41); Monocyte 3 % (0-10); Neutrophil-Segmented 83 % (47-70); Platelet Estimate ADEQUATE (ADEQ); Promyelocyte 1 % (0-0); Total Cells Counted 100 (MANUAL DIFF)
[2022-04-02 07:02] LABS: Absolute Lymphocyte Count 0.81 X10^3/uL (0.83-4.51); Absolute Neutrophil Count 5.2 X10^3/uL (2.0-7.7); Hypochromasia 1+; Lymphocyte # 0.81 X10^3/ul (0.83-4.51); Neutrophil # 5.19 X10^3/uL (2.7-7.7)
[2022-04-02] MEDS: Ipratropium/Albuterol Sulfate 3 ML AMPUL.NEB INHALATION ×4 (07:18→19:34)
[2022-04-02] MEDS: Budesonide Respules 0.5 MG/2 ML AMPUL.NEB. INHALATION ×2 (07:18→19:34)
--- NOTE | 2022-04-02 07:21 | PCM.PN.HOSP ---
Subjective Subjective Follow-up on sepsis secondary to pneumonia: Patient was seen and examined. He is currently on 2 half liters of oxygen. Oxygen is gradually being weaned off. Denies any progressive shortness of breath. Objective Data Objective Data Vital Signs: Vital Signs Temp Pulse Resp BP Pulse Ox O2 Del Method O2 Flow Rate 97.5 F L 87 20 H 109/55 L 94 Nasal Cannula 4 04/02/22 04:03 04/02/22 04:03 04/02/22 04:03 04/02/22 04:03 04/02/22 04:03 04/02/22 04:03 04/02/22 04:03 Oxygen Flow Rate (L/min) 4 Oxygen Delivery Method Nasal Cannula Weight: 90.1 kg Body Mass Index (BMI) 27.3 Intake & Output: Intake and Output for Last 24 Hours 03/31/22 04/01/22 04/02/22 23:59 23:59 23:59 Intake Total 1140 / 1140 240 / 240 Output Total 0 / 0 Balance 1140 / 1140 240 / 240 Lab / Micro Data Result Diagrams: 04/02/22 05:35 04/02/22 05:35 Labs: Laboratory Results - last 24 hr 04/01/22 14:05: WBC 13.0 H, RBC 3.66 L, Hgb 10.7 L, Hct 33.3 L, MCV 91.0, MCH 29.2, MCHC 32.1, RDW Std Deviation 43.7, RDW Coeff of Joana 13.2, Plt Count 327, MPV 11.8, Immature Gran % (Auto) 2.600 H, Neut % (Auto) 79.4 H, Lymph % (Auto) 12.7 L, [place] % (Auto) 5.1, Eos % (Auto) 0.0, Baso % (Auto) 0.2, Absolute Neuts (auto) 10.4 H, Absolute Lymphs (auto) 1.66, Nucleated RBC % 0, Reactive Lymphocytes 1+ 04/01/22 14:05: Sodium 136, Potassium 3.7, Chloride 97 L, Carbon Dioxide 30.0, Anion Gap 9, BUN 49 H, Creatinine 3.99 H, Estim Creat Clear Calc 19.13, Est GFR (MDRD) Af Amer 19 L, Est GFR (MDRD) Non-Af 16 L, BUN/Creatinine Ratio 12.3, Glucose 153 H, Calcium 9.0 04/01/22 14:50: Lactic Acid 3.3 H* 04/01/22 19:50: Lactic Acid 3.5 H* 04/01/22 22:15: POC Glucose 347 H 04/02/22 05:35: WBC 6.3, RBC 3.04 L, Hgb 8.7 L, Hct 28.0 L, MCV 92.1, MCH 28.6, MCHC 31.1 L, RDW Std Deviation 44.4 H, RDW Coeff of Joana 13.2, Plt Count 254, MPV 12.4 H, Neut % (Auto) Not Reportable, Absolute Neuts (auto) 5.2, Absolute Lymphs (auto) 0.81 L, Total Counted 100, Neutrophils % (Manual) 83 H, Lymphocytes % (Manual) 13 L, Monocytes % (Manual) 3, Promyelocytes % 1 H, Diff Path Review July, Platelet Estimate ADEQUATE, Hypochromasia 1+ 04/02/22 05:35: Sodium 137, Potassium 4.5, Chloride 99, Carbon Dioxide 27.0, Anion Gap 11, BUN 72 H, Creatinine 5.44 H, Estim Creat Clear Calc 14.03, Est GFR (MDRD) Af Amer 14 L, Est GFR (MDRD) Non-Af 11 L, BUN/Creatinine Ratio 13.2, Glucose 345 H, Calcium 8.2 L 04/02/22 06:08: POC Glucose 326 H Micro: Microbiology 04/01/22 22:55 Mucosa - Nasopharyngeal Respiratory Panel (PCR) - Final 04/01/22 14:35 Nasal Secretion SARS-CoV-2 Antigen (Rapid) - Final Radiography Diagnostic Testing: Radiology Impression Chest X-Ray 04/01/22 13:59 IMPRESSION: There are bilateral pleural effusions. Stable nodularity of the right upper lobe. New infiltrate in the left lower lobe. Electronically Signed: Zaire Hunter MD at 15:08 EST , Physical Exam Narrative Physical exam: General: Alert, Oriented x3, Cooperative, on 2.5 L of oxygen HEENT: Atraumatic Oral: Moist Mucosa Neck: Supple Lungs: Diminished to auscultation Cardiovascular: HS I+II, regular, no murmurs Abdomen: Bowel Sounds Present, Soft, Non Tender Extremities: No edema Skin: No rashes, No breakdown Neurological: Grossly intact Psych/Mental Status: Appropriate Assessment & Plan Assessment/Plan (1) Acute hypoxemic respiratory failure: PLAN: Plan 1. Acute hypoxia secondary to pneumonia, currently on 2.5 L of oxygen Continue with breathing treatments, IV antibiotics, Encourage use of incentive spirometer. Wean off oxygen for SPO2 more than 94% 2. Sepsis secondary to acute LLL pneumonia Resp panel and rapid COVId-19 antigen screen negative Continue on IV vancomycin and Zosyn 3. COPD, not in acute exacerbation/LADARIUS, continue on breathing treatments 4. ESRD on HD, nephrology consulted 5. Type 2 DM, BS are fairly uncontrolled, continue on Lantus, ISS 6. Hypothyroidism, continue on Synthroid 7. Non-compliance with medical therapy, recently signed out AMA from [facility] 8. DVT PPx- Heparin SC Charges/Coding Visit Charges Inpatient E&M: 04616 Subs Hosp L2
[2022-04-02] MEDS: Cholecalciferol (VIT D3) 25 MCG TABLET (1,000 UNITS) 50 MCG PO (09:22)
[2022-04-02] MEDS: Isosorbide Mononitrate 30 MG Tablet PO (09:22)
[2022-04-02] MEDS: Escitalopram Oxalate 20 MG Tablet PO (09:22)
[2022-04-02] MEDS: Clopidogrel Bisulfate 75 MG Tablet PO (09:22)
[2022-04-02] MEDS: Aspirin E.C. 81 MG Tablet PO (09:23)
[2022-04-02] MEDS: Ferrous Sulfate 325 MG Tablet PO (09:23)
[2022-04-02] MEDS: Finasteride 5 MG Tablet PO (09:23)
[2022-04-02] MEDS: Heparin Injection (Vial) 5,000 UNIT/ML VIAL 5000 UNIT SC ×2 (09:24→21:55)
[2022-04-02] MEDS: Insulin Glargine-YFGN 100 UNIT/ML Pen 25 UNIT SC ×2 (09:25→21:58)
[2022-04-02] MEDS: 0.9% Saline Lock 10 ML Syringe IV ×3 (09:26→21:54)
[2022-04-02 12:06] LABS: Bedside Glucose 210 mg/dL (74-106)
--- NOTE | 2022-04-02 12:20 | CASEMGMT ---
RN CM Face to Face with patient for initial transition planning/care coordination assessment. RN CM introduced self and role at [facility]. Patient lying in bed, alert and oriented. Patient willing to participate in assessment and is able to answer all questions appropriately. Care providers, pharmacy, and demographics verified. Patient wishes to discharge home, denies need for home health at this time. Patient states he has no further needs or concerns at this time. CM to follow for discharge planning needs that may arise. PCP: [facility] Specialists: [place], airplane electrician; Dago, drop machine operator; Castillo Barlow, pulmonologsit Preferred Pharmacy:[facility] Insurance: Hermila [facility] Prescription Benefit: yes Living Will/HPOA: none LNOK: sisters Living Arrangements: Patient lives alone in a mobile home with 5 steps and railing to enter the home. Patient states he is independent at home. Transportation: self, sister DME/HHC: Patient states he has shower chair, raised toilet, cane, walker, grab bars, wheelchair, nebulizer, pulse ox at home. No previous HHC or SNF. Patient states he prefers [facility] for DME. Patient attends outpatient HD at [place] [id number] Disposition Plan: Patient to discharge home with family support and follow-up plans in place. Alina PATHAK, RN, CM
--- NOTE | 2022-04-02 12:25 | PCM.CONS.R ---
Assessment & Plan Assessment/Plan (1) ESRD (end stage renal disease) on dialysis: PLAN: dialysis next on Friday (2) Left lower lobe pneumonia: PLAN: antibiotics renal dose (3) COPD with exacerbation: PLAN: hx tobacco use (4) Iron deficiency anemia: PLAN: hgb 8.7g, epo on dialysis, iv iron. Stop oral iron (5) DM type 2 (diabetes mellitus, type 2): PLAN: on insulin HPI Consult Data Date of Consult: 04/02/22 HPI Narrative Reason for Consultation: ESRD on HD MWF HPI Narrative: BARI KELLY, is a 66 M with ESRD due to diabetes, hypertension, last dialysis Friday at [facility] admitted via [place] [facility] for complains of shortness of breath, cough. He was seen in [facility] ER on Friday then transferred to [facility] in [place] for pneumonia. He signed out AMA over weekend without oxygen and antibiotics on discharge. He has underlying COPD with history of smoking. He is feeling better now with oxygen and iv antibx. His next dialysis is arranged for Friday. Patient denies any fevers or chills, no wheezing. Chest x-ray which showed an infiltrate in the left lower lobe, there are bilateral pleural effusions noted to be present and a stable nodularity of the right upper lobe. [facility] Medical History Acute exacerbation of chronic obstructive pulmonary disease (COPD) Acute HFrEF (heart failure with reduced ejection fraction) Acute renal failure superimposed on stage 4 chronic kidney disease Acute respiratory failure with hypoxemia Anemia of chronic renal failure Anxiety Atherosclerosis of coronary artery of [place] heart without angina pectoris Back pain C. difficile colitis Cancer Cardiology follow-up encounter Cholelithiasis Chronic renal failure, stage 4 (severe) Colon cancer COPD (chronic obstructive pulmonary disease) CPAP (continuous positive airway pressure) dependence Depression DM type 2 causing CKD stage 4 Elevated troponin Essential (primary) hypertension Former smoker Gastric reflux Gastroenteritis Gout Heme + stool Hemorrhoids High cholesterol History of echocardiogram History of GI bleed History of IBS Hyperkalemia, diminished renal excretion Hyperlipidemia Hypertension Hyponatremia Hypotension, unspecified Increased PTH level Infectious encephalopathy Influenza B Injury of head and neck Insulin dependent diabetes mellitus Iron deficiency anemia Ischemic cardiomyopathy Low vitamin D level Lower GI bleed Metabolic acidosis Myocardial infarct Nicotine dependence, cigarettes, in remission Nocturnal hypoxia Non-STEMI (non-ST elevated myocardial infarction) Noncompliance with CPAP treatment NSAID long-term use NSTEMI (non-ST elevated myocardial infarction) (07/2018) NSVT (nonsustained ventricular tachycardia) On home oxygen therapy LADARIUS (obstructive sleep apnea) Paroxysmal atrial fibrillation Peripheral vascular disease Pseudomembranous enterocolitis Radiculopathy affecting upper extremity Septic shock Severe sepsis Shortness of breath on exertion Skin tear Sleep apnea Stage 3 severe COPD by GOLD classification Streptococcal pneumonia Uremia of renal origin Urinary retention due to benign prostatic hyperplasia Wears dentures Home Medications nitroglycerin 0.4 mg sublingual tablet 0.4 mg sublingual Q5M PRN Chest Pain 05/14/17 [History Last Taken Unknown] oxycodone 5 mg tablet 5 mg PO BID PRN PRN Pain 05/14/17 [History Last Taken 04/01/22] finasteride 5 mg tablet 5 mg PO DAILY prostate 09/15/17 [History Last Taken 04/01/22] isosorbide mononitrate 30 mg tablet,extended release 24 hr 30 mg PO DAILY heart 09/15/17 [History Last Taken 04/01/22] diazepam 5 mg tablet 5 - 10 mg PO BID PRN anxiety 05/12/18 [History Last Taken 04/01/22] cilostazol 100 mg tablet 100 mg PO QHS cirrulation 09/30/19 [History Last Taken 03/31/22] escitalopram oxalate 20 mg tablet (Lexapro) 20 mg PO DAILY depression 09/30/19 [History Last Taken 03/31/22] ipratropium 0.5 mg-albuterol 3 mg (2.5 mg base)/3 mL nebulization soln 3 ml inhalation Q4H PRN shortness of breath or wheezing 09/30/19 [History Last Taken 04/01/22] levothyroxine 88 mcg tablet 88 mcg PO DAILY thyroid 12/07/19 [History Last Taken 04/01/22] umeclidinium 62.5 mcg-vilanterol 25 mcg/actuation powdr for inhalation (Anoro Ellipta) 1 inh inhalation Q24H breathing 08/31/20 [History Last Taken 04/01/22] albuterol sulfate 90 mcg/actuation aerosol inhaler 2 puff inhalation 4X/DAY breathing 04/28/21 [History Last Taken 04/01/22] aspirin 81 mg tablet,delayed release 81 mg PO DAILY heart health 04/28/21 [History Last Taken 04/01/22] cholecalciferol (vitamin D3) 50 mcg (2,000 unit) capsule (Vitamin D3) 2,000 unit PO DAILY vitamin 04/28/21 [History Last Taken 04/01/22] ferrous sulfate 325 mg (65 mg iron) tablet,delayed release 325 mg PO DAILY supplement 04/28/21 [History Last Taken 04/01/22] loperamide 2 mg capsule 2 mg PO Q4H PRN PRN Constipation 04/28/21 [History Last Taken 2 Days Ago ~03/30/22] rosuvastatin 10 mg tablet 10 mg PO DAILY cholesterol 04/28/21 [History Last Taken 04/01/22] clopidogrel 75 mg tablet 75 mg PO DAILY HEART 04/01/22 [History Last Taken 04/01/22] insulin degludec 100 unit/mL (3 mL) subcutaneous pen (Tresiba FlexTouch U-100 insulin) 25 unit subcut BID Check with primary doctor 04/01/22 [History Last Taken 04/01/22] insulin lispro 100 unit/mL subcutaneous pen See Rx Instructions .Route .COMPLEX DM 04/01/22 [History Last Taken 04/01/22] Allergy/AdvReac Type Severity Reaction Status Date / Time No Known Allergies Allergy Verified 04/01/22 14:20 Family History Father Leukemia Mother COPD (chronic obstructive pulmonary disease) Surgical History H/O colectomy H/O pneumonectomy History of coronary artery stent placement (02/28/21) History of esophagogastroduodenoscopy (EGD) History of left heart catheterization (02/27/21) Hx of craniotomy S/P arteriovenous (AV) fistula creation Status post colon resection Status post insertion of dialysis catheter (07/2018) Social History household members: spouse housing: other details: mobile home current occupational status: disabled pets and animals: Yes pets and animals: dog(s) Smoking Status: Current every day smoker tobacco type: cigarettes Tobacco: How many years used: 40 second hand exposure: No alcohol intake: never substance use type: does not use ROS Constitutional Constitutional: Denies chills, fever(s), malaise or weakness Eyes Eyes: Denies loss of vision ENT HEENT: Reports dry mouth; Denies loss taste/smell Cardiovascular Cardiovascular: Reports dyspnea on exertion; Denies chest pain or edema Respiratory/Chest Respiratory/Chest: Reports dry cough and dyspnea on exertion; Denies productive cough or wheezing Gastrointestinal Gastrointestinal: Denies abdominal pain, anorexia or diarrhea Genitourinary Genitourinary: Denies change in urinary stream Musculoskeletal Musculoskeletal: Denies abnormal gait Neurologic Neurologic: Denies confusion or focal weakness Psychiatric Psychiatric: Reports anxiety; Denies confusion Endocrine Endocrinology: Denies cold intolerance Hematologic/Lymphatic Hematologic/Lymphatic: Reports anemia Physical Exam Const alert, oriented x3 and no apparent distress General Appearance: well developed Resp clear to auscultation bilaterally Cardio regular rate GI non-tender and non-distended Auscultation: normoactive bowel sounds Palpation: soft Extremity no clubbing, cyanosis or edema General Extremity: AV fistula Skin no rashes or lesions noted Neuro CN's II-XII intact bilaterally Lab / Micro Data Result Diagrams: 04/02/22 05:35 04/02/22 05:35 Labs: Laboratory Results - last 24 hr 04/01/22 14:05: WBC 13.0 H, RBC 3.66 L, Hgb 10.7 L, Hct 33.3 L, MCV 91.0, MCH 29.2, MCHC 32.1, RDW Std Deviation 43.7, RDW Coeff of Joana 13.2, Plt Count 327, MPV 11.8, Immature Gran % (Auto) 2.600 H, Neut % (Auto) 79.4 H, Lymph % (Auto) 12.7 L, [place] % (Auto) 5.1, Eos % (Auto) 0.0, Baso % (Auto) 0.2, Absolute Neuts (auto) 10.4 H, Absolute Lymphs (auto) 1.66, Nucleated RBC % 0, Reactive Lymphocytes 1+ 04/01/22 14:05: Sodium 136, Potassium 3.7, Chloride 97 L, Carbon Dioxide 30.0, Anion Gap 9, BUN 49 H, Creatinine 3.99 H, Estim Creat Clear Calc 19.13, Est GFR (MDRD) Af Amer 19 L, Est GFR (MDRD) Non-Af 16 L, BUN/Creatinine Ratio 12.3, Glucose 153 H, Calcium 9.0 04/01/22 14:50: Lactic Acid 3.3 H* 04/01/22 19:50: Lactic Acid 3.5 H* 04/01/22 22:15: POC Glucose 347 H 04/02/22 05:35: WBC 6.3, RBC 3.04 L, Hgb 8.7 L, Hct 28.0 L, MCV 92.1, MCH 28.6, MCHC 31.1 L, RDW Std Deviation 44.4 H, RDW Coeff of Joana 13.2, Plt Count 254, MPV 12.4 H, Neut % (Auto) Not Reportable, Absolute Neuts (auto) 5.2, Absolute Lymphs (auto) 0.81 L, Total Counted 100, Neutrophils % (Manual) 83 H, Lymphocytes % (Manual) 13 L, Monocytes % (Manual) 3, Promyelocytes % 1 H, Diff Path Review July, Platelet Estimate ADEQUATE, Hypochromasia 1+ 04/02/22 05:35: Sodium 137, Potassium 4.5, Chloride 99, Carbon Dioxide 27.0, Anion Gap 11, BUN 72 H, Creatinine 5.44 H, Estim Creat Clear Calc 14.03, Est GFR (MDRD) Af Amer 14 L, Est GFR (MDRD) Non-Af 11 L, BUN/Creatinine Ratio 13.2, Glucose 345 H, Calcium 8.2 L 04/02/22 06:08: POC Glucose 326 H 04/02/22 11:32: POC Glucose 210 H Micro: Microbiology 04/01/22 22:55 Mucosa - Nasopharyngeal Respiratory Panel (PCR) - Final 04/01/22 14:35 Nasal Secretion SARS-CoV-2 Antigen (Rapid) - Final Radiology Impression Chest X-Ray 04/01/22 13:59 IMPRESSION: There are bilateral pleural effusions. Stable nodularity of the right upper lobe. New infiltrate in the left lower lobe. Electronically Signed: Zaire Hunter MD at 15:08 EST ,
[2022-04-02] MEDS: Epoetin Alfa epbx 10,000 UNITS/ML 6000 UNIT SC (14:24)
[2022-04-02 16:50] LABS: Bedside Glucose 211 mg/dL (74-106)
[2022-04-02] MEDS: Acetaminophen 325 MG Tablet 650 MG PO (21:59)
[2022-04-02] MEDS: Atorvastatin Calcium 20 MG Tablet PO (21:59)
[2022-04-02] MEDS: Cilostazol 50 MG Tablet 100 MG PO (21:59)
[2022-04-02 22:50] LABS: Bedside Glucose 247 mg/dL (74-106)
[2022-04-03] VITALS (12 sets, daily range): BP systolic 103–146; BP diastolic 52–80; PULSE 86–96; RESP 16–20; TEMP 36.5–36.9; O2SAT 86–98
[2022-04-03 06:09] LABS: Absolute Lymphocyte Count 1.41 X10^3/uL (0.83-4.51); Absolute Neutrophil Count 8.2 X10^3/uL (2.0-7.7); Basophil# 0.03 X10^3/uL; Basophil% 0.3 % (0-1); Eosinophil# 0.02 X10^3/uL; Eosinophils% 0.2 % (0-5); Hematocrit 26.7 % (40-54); Hemoglobin 8.2 g/dL (13.0-16.5); Lymphocyte # 1.41 X10^3/ul (0.83-4.51); Mean Corp Hgb Conc 30.7 g/dL (32-36); Mean Corpuscular Hgb 28.8 pg (27.0-32.0); Mean Corpuscular Volume 93.7 fL (80-94); Mean Platelet Vol. 12.5 fl (6.2-12.0); Monocyte# 0.64 X10^3/uL; Monocyte% 5.9 % (0-10); NRBC Flagged by Analyzer 0 % (0-5); Neutrophil # 8.22 X10^3/uL (2.7-7.7); Neutrophil % 75.9 % (47-70); Platelet Count 260 K/mm3 (150-450); RBC Distribution Width CV 13.2 % (11.6-14.6); RBC Distribution Width SD 45.5 fl (35.1-43.9); Red Blood Count 2.85 M/mm3 (4.6-6.2); White Blood Count 10.8 K/mm3 (4.4-11.0)
[2022-04-03] MEDS: Levothyroxine 88 MCG Tablet PO (06:16)
[2022-04-03] MEDS: Heparin Injection (Vial) 5,000 UNIT/ML VIAL 5000 UNIT SC ×3 (06:16→21:54)
[2022-04-03 06:57] LABS: ALB/GLOB Ratio 0.6 RATIO (0.9-2.4); AST(SGOT) 17 U/L (15-37); Alanine Aminotransfer ALT/SGPT 25 U/L (16-61); Albumin, Serum 2.1 g/dL (3.2-5.0); Alkaline Phosphatase 96 U/L (45-117); Anion Gap 11 (5-15); BUN 106 mg/dL (7-18); Calcium,Total 8.2 mg/dL (8.5-10.1); Chloride 103 mmol/L (98-107); Creatinine, Serum 6.61 mg/dL (0.70-1.30); EST Glomerular Filtration Rate 9 mL/min (>60); Est Glom Filt Rate - Afr Amer 11 mL/min (>60); Estimated Creatinine Clearance 11.55 ml/min; Globulin 3.5 g/dL (2.2-4.2); Glucose 145 mg/dL (74-106); Potassium 4.3 mmol/L (3.5-5.1); Protein, Total 5.6 g/dL (6.4-8.2); Sodium Level 140 mmol/L (136-145)
[2022-04-03 07:35] LABS: Bedside Glucose 139 mg/dL (74-106)
[2022-04-03] MEDS: Aspirin E.C. 81 MG Tablet PO (08:58)
[2022-04-03] MEDS: Finasteride 5 MG Tablet PO (08:58)
[2022-04-03] MEDS: Cholecalciferol (VIT D3) 25 MCG TABLET (1,000 UNITS) 50 MCG PO (08:58)
[2022-04-03] MEDS: Ferrous Sulfate 325 MG Tablet PO (08:58)
[2022-04-03] MEDS: Isosorbide Mononitrate 30 MG Tablet PO (08:58)
[2022-04-03] MEDS: Clopidogrel Bisulfate 75 MG Tablet PO (08:58)
[2022-04-03] MEDS: Escitalopram Oxalate 20 MG Tablet PO (08:58)
[2022-04-03 09:42] LABS: Pathologist Review Reviewed
[2022-04-03] MEDS: Ipratropium/Albuterol Sulfate 3 ML AMPUL.NEB INHALATION (10:44)
[2022-04-03] MEDS: Budesonide Respules 0.5 MG/2 ML AMPUL.NEB. INHALATION (10:44)
--- NOTE | 2022-04-03 11:05 | CASEMGMT ---
DEVEN SAAVEDRA NOTE: Pt being discharged today. Pt has not received HD today yet and is on a MWF schedule @ [facility]/chair time 15. Call placed to [facility] and spoke w/Erika to inquire if they have later chair time available today for possible OP HD. Per Erika, they do not have any later chair times available. Pt to receive HD today @ [facility] prior to discharge home and then to have OP HD on Friday @ [facility], per his schedule. Pt made aware. Pt to have Home O2 testing completed prior to discharge. DEVEN SAAVEDRA spoke w/pt about O2. Pt states he has one portable O2 tank from [employer] @ [place], but does not have a concentrator. He states he wears 2.5 l/m PRN. Pt states he used to have a concentrator, but since he wasn't using oxygen for about 6 months, he didn't want to continue to be billed for it, so he returned the concentrator. Call placed to Vanna @ [email or web address]. She states current O2 orders are 2 l/m @ rest and 4 l/m w/exertion, but this was from 2020 and they would need new updated order if pt qualifies for any O2 @ d/c. Susie RN, aware Home O2 amb testing to be completed prior to d/c. Shirley FULTONN DEVEN SAAVEDRA
[2022-04-03 11:10] LABS: Bedside Glucose 122 mg/dL (74-106)
--- NOTE | 2022-04-03 11:10 | PN.HOSP_ITS ---
Subjective Subjective Follow-up on sepsis secondary to pneumonia: Patient was seen and examined.?He is on 2L of oxygen at rest, and required 4L on exertion.?Denies any progressive shortness of breath, fever or chills. Objective Data Objective Data Vital Signs: Vital Signs Temp Pulse Resp BP Pulse Ox O2 Del Method O2 Flow Rate 98.2 F 92 17 143/74 H 96 Nasal Cannula 2 04/03/22 10:00 04/03/22 10:00 04/03/22 10:00 04/03/22 10:00 04/03/22 10:00 04/03/22 10:00 04/03/22 09:13 Oxygen Flow Rate (L/min) 2 Oxygen Delivery Method Nasal Cannula Weight: 90.1 kg Body Mass Index (BMI) 27.3 Intake & Output: Intake and Output for Last 24 Hours 04/01/22 04/02/22 04/03/22 23:59 23:59 23:59 Intake Total 1140 / 1140 690 / 1170 650 / 650 Output Total 0 / 0 0 / 0 Balance 1140 / 1140 690 / 1170 650 / 650 Lab / Micro Data Result Diagrams: 04/03/22 05:40 04/03/22 05:40 Labs: Laboratory Results - last 24 hr 04/02/22 05:35: Diff Path Review Reviewed 04/02/22 11:32: POC Glucose 210 H 04/02/22 16:11: POC Glucose 211 H 04/02/22 21:49: POC Glucose 247 H 04/03/22 05:40: WBC 10.8, RBC 2.85 L, Hgb 8.2 L, Hct 26.7 L, MCV 93.7, MCH 28.8, MCHC 30.7 L, RDW Std Deviation 45.5 H, RDW Coeff of Joana 13.2, Plt Count 260, MPV 12.5 H, Immature Gran % (Auto) 4.700 H, Neut % (Auto) 75.9 H, Lymph % (Auto) 13.0 L, [place] % (Auto) 5.9, Eos % (Auto) 0.2, Baso % (Auto) 0.3, Absolute Neuts (auto) 8.2 H, Absolute Lymphs (auto) 1.41, Nucleated RBC % 0 04/03/22 05:40: Sodium 140, Potassium 4.3, Chloride 103, Carbon Dioxide 26.0, Anion Gap 11, BUN 106 H*, Creatinine 6.61 H, Estim Creat Clear Calc 11.55, Est GFR (MDRD) Af Amer 11 L, Est GFR (MDRD) Non-Af 9 L, BUN/Creatinine Ratio 16.0, Glucose 145 H, Calcium 8.2 L, Total Bilirubin 0.20, AST 17, ALT 25, Alkaline Phosphatase 96, Total Protein 5.6 L, Albumin 2.1 L, Globulin 3.5, Albumin/Globulin Ratio 0.6 L 04/03/22 06:13: POC Glucose 139 H Micro: Microbiology 04/02/22 18:56 Urine, Clean Catch Legionella Antigen - Final 04/02/22 18:56 Urine, Clean Catch Streptococcus pneumoniae Antigen (M - Final 04/01/22 22:55 Mucosa - Nasopharyngeal Respiratory Panel (PCR) - Final 04/01/22 14:35 Nasal Secretion SARS-CoV-2 Antigen (Rapid) - Final Physical Exam Narrative Physical exam: General: Alert, Oriented x3, Cooperative, on 2 L of oxygen HEENT: Atraumatic Oral: Moist Mucosa Neck: Supple Lungs: Diminished to auscultation Cardiovascular: HS I+II, regular, no murmurs Abdomen: Bowel Sounds Present, Soft, Non Tender Extremities: No edema Skin: No rashes, No breakdown Neurological: Grossly intact Psych/Mental Status: Appropriate Assessment & Plan Assessment/Plan (1) Acute hypoxemic respiratory failure: PLAN: Plan 1. Acute hypoxia secondary to pneumonia, minimally improved to 2L of oxygen Continue with breathing treatments, IV antibiotics, Encourage use of incentive spirometer. Wean off oxygen for SPO2 more than 94% 2.Acute LLL pneumonia, sepsis ruled out in this admission Resp panel, rapid COVId-19 antigen screen, respiratory panel are negative Continue on IV vancomycin and Zosyn 3. COPD, not in acute exacerbation/LADARIUS, continue on breathing treatments 4. ESRD on HD, nephrology consulted 5. Type 2 DM, BS are fairly uncontrolled, continue on Lantus, ISS 6. Hypothyroidism, continue on Synthroid 7. Non-compliance with medical therapy, recently signed out AMA from [facility] 8. DVT PPx- Heparin SC Disposition: Probable DC in am Charges/Coding Visit Charges Inpatient E&M: 30381 Subs Hosp L2
--- NOTE | 2022-04-03 12:59 | CHAPLAIN ---
Type of Pastoral Visit _x__ Initial Visit ___ Follow-up Visit ___ On-call Visit ___ General Patient Visit ___ Spiritual Assessment ___ Family Conference ___ Bereavement ___ Rapid Response ___ Code Blue ___ Other (describe below) Pastoral Care Referral From _x__ Patient ___ Family ___ Nurse ___ Physician ___ Ground Water Technician ___ [employer] ___ Other (describe below) Sacrament/Intervention _x__ Active listening ___ Anointing ___ Latter-Day ___ Bereavement ___ Communion ___ Marija exploration ___ _x__ Life review _x__ Prayer ___ Reconciliation ___ Sacrament of Sick _x__ Supportive presence ___ Wedding ___ Other (describe below) Pastoral Comments patient was seen in a previous admission and both remember that; pt gives update on his life and health; pt speaks of his dialysis treatment schedule; pt has some limited support from two sisters; pt acknowledges that he could benefit from more interactions and with more daily prayers; prayer and presence welcomed
--- NOTE | 2022-04-03 14:14 | NURSING ---
1400 heparin SQ given during downtime.
[2022-04-03 16:16] LABS: Bedside Glucose 162 mg/dL (74-106)
--- NOTE | 2022-04-03 18:24 | DIALYSIS ---
hemodialysis completed x 3hrs 15 min. Access via [facility]. Net UF 2800ml. pt tiffany well. See HD flowsheet on chart.
--- NOTE | 2022-04-03 19:57 | PCM.PN.REN ---
Subjective Subjective denies SOB, still with cough. Dialysis today. Fluid removal as tolerated Objective Data Objective Data Vital Signs: Vital Signs Temp Pulse Resp BP Pulse Ox O2 Del Method O2 Flow Rate 97.7 F L 92 18 116/63 98 Nasal Cannula 2 04/03/22 18:00 04/03/22 18:00 04/03/22 18:00 04/03/22 18:00 04/03/22 15:30 04/03/22 18:00 04/03/22 15:30 Oxygen Flow Rate (L/min) [ 4 AMBULATING with Oxygen #3] Oxygen Flow Rate (L/min) [ 3 AMBULATING with Oxygen #2] Oxygen Flow Rate (L/min) [ 2 AMBULATING with Oxygen #1] Oxygen Flow Rate (L/min) [At 2 REST with Oxygen] Oxygen Flow Rate (L/min) [At 0 REST on Room Air] Oxygen Flow Rate (L/min) 2 Oxygen Delivery Method Nasal Cannula Weight: 90.1 kg Body Mass Index (BMI) 27.3 Intake & Output: Intake and Output for Last 24 Hours 04/01/22 04/02/22 04/03/22 23:59 23:59 23:59 Intake Total 1140 / 1140 690 / 1170 700 / 700 Output Total 0 / 0 2800 / 2800 Balance 1140 / 1140 690 / 1170 -2100 / -2100 Lab / Micro Data Result Diagrams: 04/03/22 05:40 04/03/22 05:40 Labs: Laboratory Results - last 24 hr 04/02/22 05:35: Diff Path Review Reviewed 04/02/22 21:49: POC Glucose 247 H 04/03/22 05:40: WBC 10.8, RBC 2.85 L, Hgb 8.2 L, Hct 26.7 L, MCV 93.7, MCH 28.8, MCHC 30.7 L, RDW Std Deviation 45.5 H, RDW Coeff of Joana 13.2, Plt Count 260, MPV 12.5 H, Immature Gran % (Auto) 4.700 H, Neut % (Auto) 75.9 H, Lymph % (Auto) 13.0 L, [place] % (Auto) 5.9, Eos % (Auto) 0.2, Baso % (Auto) 0.3, Absolute Neuts (auto) 8.2 H, Absolute Lymphs (auto) 1.41, Nucleated RBC % 0 04/03/22 05:40: Sodium 140, Potassium 4.3, Chloride 103, Carbon Dioxide 26.0, Anion Gap 11, BUN 106 H*, Creatinine 6.61 H, Estim Creat Clear Calc 11.55, Est GFR (MDRD) Af Amer 11 L, Est GFR (MDRD) Non-Af 9 L, BUN/Creatinine Ratio 16.0, Glucose 145 H, Calcium 8.2 L, Total Bilirubin 0.20, AST 17, ALT 25, Alkaline Phosphatase 96, Total Protein 5.6 L, Albumin 2.1 L, Globulin 3.5, Albumin/Globulin Ratio 0.6 L 04/03/22 06:13: POC Glucose 139 H 04/03/22 10:36: POC Glucose 122 H 04/03/22 15:44: POC Glucose 162 H Micro: Microbiology 04/02/22 18:56 Urine, Clean Catch Legionella Antigen - Final 04/02/22 18:56 Urine, Clean Catch Streptococcus pneumoniae Antigen (M - Final 04/01/22 22:55 Mucosa - Nasopharyngeal Respiratory Panel (PCR) - Final 04/01/22 14:35 Nasal Secretion SARS-CoV-2 Antigen (Rapid) - Final Physical Exam Const alert and oriented x3 Resp Auscultation: crackles left base Cardio regular rate Extremity no clubbing, cyanosis or edema Assessment & Plan Assessment/Plan (1) ESRD (end stage renal disease) on dialysis: PLAN: dialysis today (2) Left lower lobe pneumonia: PLAN: antibiotics renal dose (3) COPD with exacerbation: PLAN: hx tobacco use (4) Iron deficiency anemia: PLAN: epo on dialysis, iv iron. Stop oral iron (5) DM type 2 (diabetes mellitus, type 2): PLAN: on insulin
[2022-04-03] MEDS: Cilostazol 50 MG Tablet 100 MG PO (21:54)
[2022-04-03] MEDS: Atorvastatin Calcium 20 MG Tablet PO (21:54)
[2022-04-03] MEDS: 0.9% Saline Lock 10 ML Syringe IV (21:54)
[2022-04-03] MEDS: Insulin Glargine-YFGN 100 UNIT/ML Pen 25 UNIT SC (21:55)
[2022-04-03] MEDS: Insulin Lispro 100 UNIT/ML INSULN.PEN SC (21:55)
[2022-04-03 23:00] LABS: Bedside Glucose 185 mg/dL (74-106)
[2022-04-04 03:57] VITALS: BP 120/69; PULSE 85; RESP 18; TEMP 36.6; O2SAT 96
[2022-04-04 04:45] LABS: Hematocrit 28.5 % (40-54); Mean Corp Hgb Conc 31.6 g/dL (32-36); Mean Corpuscular Hgb 29.4 pg (27.0-32.0); Mean Corpuscular Volume 93.1 fL (80-94); Mean Platelet Vol. 12.2 fl (6.2-12.0); POSITIVE COUNT YES; POSITIVE MORPHOLOGY YES; Platelet Count 255 K/mm3 (150-450); RBC Distribution Width CV 13.2 % (11.6-14.6); RBC Distribution Width SD 44.7 fl (35.1-43.9); Red Blood Count 3.06 M/mm3 (4.6-6.2); White Blood Count 11.3 K/mm3 (4.4-11.0)
[2022-04-04 04:48] LABS: Differential Indicated MANUAL DIFF
[2022-04-04 05:07] LABS: Neutrophil-Segmented 76 % (47-70); Total Cells Counted 100 (MANUAL DIFF)
[2022-04-04 05:08] LABS: Eosinophil 2 % (0-5); Hypochromasia 1+; Lymphocyte 16 % (19-41); Monocyte 3 % (0-10); Myelocyte 3 % (0-0); Platelet Estimate ADEQUATE (ADEQ); Red Cell Morphology N CYTIC NORMAL (NORM C&C)
[2022-04-04 05:09] LABS: Absolute Neutrophil Count 8.6 X10^3/uL (2.0-7.7); Neutrophil # 8.57 X10^3/uL (2.7-7.7)
[2022-04-04 05:11] LABS: ALB/GLOB Ratio 0.6 RATIO (0.9-2.4); AST(SGOT) 16 U/L (15-37); Alanine Aminotransfer ALT/SGPT 28 U/L (16-61); Albumin, Serum 2.2 g/dL (3.2-5.0); Alkaline Phosphatase 100 U/L (45-117); Anion Gap 9 (5-15); BUN 56 mg/dL (7-18); BUN/Creat Ratio 13.8 RATIO (10-20); Calcium,Total 8.3 mg/dL (8.5-10.1); Chloride 103 mmol/L (98-107); Creatinine, Serum 4.05 mg/dL (0.70-1.30); EST Glomerular Filtration Rate 16 mL/min (>60); Est Glom Filt Rate - Afr Amer 19 mL/min (>60); Estimated Creatinine Clearance 18.85 ml/min; Globulin 3.7 g/dL (2.2-4.2); Glucose 108 mg/dL (74-106); Potassium 4.3 mmol/L (3.5-5.1); Protein, Total 5.9 g/dL (6.4-8.2); Sodium Level 139 mmol/L (136-145)
[2022-04-04] MEDS: Levothyroxine 88 MCG Tablet PO (06:16)
[2022-04-04] MEDS: Heparin Injection (Vial) 5,000 UNIT/ML VIAL 5000 UNIT SC (06:17)
[2022-04-04] MEDS: Budesonide Respules 0.5 MG/2 ML AMPUL.NEB. INHALATION (06:39)
[2022-04-04] MEDS: Ipratropium/Albuterol Sulfate 3 ML AMPUL.NEB INHALATION ×2 (06:39→10:44)
[2022-04-04 07:00] LABS: Bedside Glucose 101 mg/dL (74-106)
[2022-04-04 07:30] VITALS: PULSE 77; RESP 17; O2SAT 92
[2022-04-04 08:52] VITALS: BP 113/75; PULSE 96; RESP 18; TEMP 36.4; O2SAT 91
[2022-04-04] MEDS: Cholecalciferol (VIT D3) 25 MCG TABLET (1,000 UNITS) 50 MCG PO (08:54)
[2022-04-04] MEDS: Ferrous Sulfate 325 MG Tablet PO (08:55)
[2022-04-04] MEDS: Escitalopram Oxalate 20 MG Tablet PO (08:55)
[2022-04-04] MEDS: Isosorbide Mononitrate 30 MG Tablet PO (08:55)
[2022-04-04] MEDS: Clopidogrel Bisulfate 75 MG Tablet PO (08:55)
[2022-04-04] MEDS: Aspirin E.C. 81 MG Tablet PO (08:55)
[2022-04-04] MEDS: Insulin Glargine-YFGN 100 UNIT/ML Pen 25 UNIT SC (08:55)
[2022-04-04 09:06] VITALS: O2SAT 86; O2SAT 90; O2SAT 91
[2022-04-04] MEDS: Finasteride 5 MG Tablet PO (09:54)
[2022-04-04 10:52] VITALS: BP 105/69; PULSE 90; RESP 18; TEMP 36.6; O2SAT 92
[2022-04-04] MEDS: Insulin Lispro 100 UNIT/ML INSULN.PEN SC (11:17)
--- NOTE | 2022-04-04 11:27 | DCINST_ITS ---
Discharge Instructions Diet Discharge Diet: 1800 Calorie Control Diet and Renal Diet Activity Discharge Activity: Return to Normal Activity Weight Bearing Status: Weight bearing as tolerated Follow Up Care Test Results: Test results from this visit will be discussed in further detail at your follow- up appointment, if applicable. Discharge Plan Admission Admit Date/Time: 04/01/22 19:22 Primary Reason for Your Visit: Acute pneumonia Attending Provider: Ernestina Frausto Primary Care Provider: Jonathan Baptiste Consulting Providers: Daysi Magana ; Andrés Hernandes Instructions Additional Instructions / Restrictions: Continue to use your oxygen as prescribed Complete your antibiotics Follow-up with your primary care doctor within 1 week for reevaluation of your oxygen. Follow-up with dialysis as previously scheduled Discharge Orders/Prescriptions Prescriptions: New levofloxacin 500 mg tablet 500 mg PO Q48H 4 Days Qty: 2 0RF Continued ipratropium-albuterol 0.5 mg-3 mg(2.5 mg base)/3 mL solution for nebulization 3 ml INHALATION Q4H PRN (Reason: shortness of breath or wheezing) escitalopram oxalate [Lexapro] 20 mg tablet 20 mg PO DAILY nitroglycerin 0.4 MG tablet 0.4 mg SUBLINGUAL Q5M PRN (Reason: Chest Pain) oxycodone 5 MG tablet 5 mg PO BID PRN PRN (Reason: Pain) Label Comments: take 1 tablet by mouth twice a day if needed for pain Rx Instructions: 5-10mg finasteride 5 MG tablet 5 mg PO DAILY isosorbide mononitrate 30 MG tablet 30 mg PO DAILY cilostazol 100 mg tablet 100 mg PO QHS Rx Instructions: diazepam 5 MG tablet 5 - 10 mg PO BID PRN (Reason: anxiety) levothyroxine 88 MCG tablet 88 mcg PO DAILY Anoro Ellipta 62.5-25 mcg/actuation blister with device 1 inh inhalation Q24H loperamide 2 mg capsule 2 mg PO Q4H PRN PRN (Reason: Constipation) Label Comments: take 1 capsule by mouth every 4 hours if needed for LOOSE STOOL aspirin 81 mg tablet,delayed release (DR/EC) 81 mg PO DAILY Label Comments: take 1 tablet by mouth once daily albuterol sulfate 90 mcg/actuation HFA aerosol inhaler 2 puff INHALATION 4X/DAY Label Comments: inhale 2 puffs by mouth and INTO THE LUNGS four times a day ferrous sulfate 325 mg (65 mg iron) tablet,delayed release (DR/EC) 325 mg PO DAILY Label Comments: take 1 tablet by mouth once daily rosuvastatin 10 mg tablet 10 mg PO DAILY Label Comments: take 1 tablet by mouth once daily cholecalciferol (vitamin D3) [Vitamin D3] 50 mcg (2,000 unit) capsule 2,000 unit PO DAILY Label Comments: take 2 capsules by mouth once daily clopidogrel 75 mg tablet 75 mg PO DAILY insulin lispro 100 unit/mL insulin pen See Rx Instructions .ROUTE .COMPLEX Rx Instructions: PT STATES HE TAKE TID WITH MEALS PER SLIDING SCALE. HE IS UNABLE TO PROVIDE SLIDING SCALE INFO. insulin degludec [Tresiba FlexTouch U-100] 100 unit/mL (3 mL) insulin pen 25 unit SUBCUT BID Label Comments: inject 30 units subcutaneously twice a day Referrals / Follow Up: Jonathan Baptiste DO [Primary Care Provider] - 04/18/22 10:30 am (appointment is in the [place] office.) Disposition Disposition (needs filled in before D/C Order can be placed): Home, Self Care
[2022-04-04 11:28] VITALS: PULSE 80; RESP 18; O2SAT 92
--- NOTE | 2022-04-04 11:34 | PCM.DC.SUM ---
Providers Date of Admission: 04/01/22 Date of Discharge: 04/04/22 Primary Care Physician: Dr. Jonathan Baptiste, Consultations 04/01/22 20:03 Consult: Nephrology Routine Consulting Provider: Daysi Magana Reason for Consult: ESRD EMERGENT Consult: No MD Notified: Yes Date Notified: 04/01/22 Time Notified: 19:25 Method of Notification: Verbal Reason For Visit: SEPSIS,LEFT PNEUMONIA Diagnosis Discharge Diagnosis (1) ESRD (end stage renal disease) on dialysis: Status: Acute Code(s): N18.6 - End stage renal disease; Z99.2 - Dependence on renal dialysis (2) Left lower lobe pneumonia: Status: Acute Code(s): J18.9 - Pneumonia, unspecified organism (3) COPD with exacerbation: Status: Chronic Code(s): J44.1 - Chronic obstructive pulmonary disease with (acute) exacerbation (4) Iron deficiency anemia: Status: Acute Code(s): D50.9 - Iron deficiency anemia, unspecified (5) DM type 2 (diabetes mellitus, type 2): Status: Acute Code(s): E11.9 - Type 2 diabetes mellitus without complications Plan 1. Acute hypoxia 2.Acute LLL pneumonia 3. COPD 4. LADARIUS 5. ESRD on HD 6. Type 2 DM 7. Hypothyroidism 8. Non-compliance with medical therapy Medications at Discharge Home Medications nitroglycerin 0.4 mg sublingual tablet 0.4 mg sublingual Q5M PRN Chest Pain 05/14/17 oxycodone 5 mg tablet 5 mg PO BID PRN PRN Pain 05/14/17 finasteride 5 mg tablet 5 mg PO DAILY prostate 09/15/17 isosorbide mononitrate 30 mg tablet,extended release 24 hr 30 mg PO DAILY heart 09/15/17 diazepam 5 mg tablet 5 - 10 mg PO BID PRN anxiety 05/12/18 cilostazol 100 mg tablet 100 mg PO QHS cirrulation 09/30/19 escitalopram oxalate 20 mg tablet (Lexapro) 20 mg PO DAILY depression 09/30/19 ipratropium 0.5 mg-albuterol 3 mg (2.5 mg base)/3 mL nebulization soln 3 ml inhalation Q4H PRN shortness of breath or wheezing 09/30/19 levothyroxine 88 mcg tablet 88 mcg PO DAILY thyroid 12/07/19 umeclidinium 62.5 mcg-vilanterol 25 mcg/actuation powdr for inhalation (Anoro Ellipta) 1 inh inhalation Q24H breathing 08/31/20 albuterol sulfate 90 mcg/actuation aerosol inhaler 2 puff inhalation 4X/DAY breathing 04/28/21 aspirin 81 mg tablet,delayed release 81 mg PO DAILY heart health 04/28/21 cholecalciferol (vitamin D3) 50 mcg (2,000 unit) capsule (Vitamin D3) 2,000 unit PO DAILY vitamin 04/28/21 ferrous sulfate 325 mg (65 mg iron) tablet,delayed release 325 mg PO DAILY supplement 04/28/21 loperamide 2 mg capsule 2 mg PO Q4H PRN PRN Constipation 04/28/21 rosuvastatin 10 mg tablet 10 mg PO DAILY cholesterol 04/28/21 clopidogrel 75 mg tablet 75 mg PO DAILY HEART 04/01/22 insulin degludec 100 unit/mL (3 mL) subcutaneous pen (Tresiba FlexTouch U-100 insulin) 25 unit subcut BID diabetes 04/01/22 insulin lispro 100 unit/mL subcutaneous pen See Rx Instructions .Route .COMPLEX DM 04/01/22 levofloxacin 500 mg tablet 500 mg PO Q48H 4 days #2 tabs 04/04/22 Hospital Course Operations None Procedures None Summary of Care Provided Minutes Spent on Discharge: 35 Hospital Course: 66-year-old male with past medical history of COPD, recently diagnosed with pneumonia, who had signed out [employer]VICE a day prior to admission from the [facility]. He is a chronic smoker. He also has history of ESRD on hemodialysis. Patient presented to the emergency room with left lower lobe infiltrate, bilateral pleural effusions, right upper lobe stable nodularity. He also has some evidence of hypotension in the ED that resolved with IV fluids. Patient was admitted to the progressive care unit. He was started IV vancomycin and Zosyn. He did continue to improve. He is usually on 2 L of oxygen at home at night. He did require oxygen 2 L all the time. He was discharged on oxygen and 4 more days of Levaquin, renally dosed. Patient will need to follow-up with his primary care doctor within 1 week and with dialysis as previously scheduled. Physical Exam Narrative Physical exam: General: Alert, Oriented x3, Cooperative, on 2 L of oxygen HEENT: Atraumatic Oral: Moist Mucosa Neck: Supple Lungs: Diminished to auscultation Cardiovascular: HS I+II, regular, no murmurs Abdomen: Bowel Sounds Present, Soft, Non Tender Extremities: No edema Skin: No rashes, No breakdown Neurological: Grossly intact Psych/Mental Status: Appropriate Weight / BMI Weight Weight: 90.1 kg Body Mass Index (BMI) 27.3 ABG / Lab / Microbiology Data Result Diagrams: 04/04/22 03:56 04/04/22 03:56 Laboratory: Laboratory Results - last 24 hr 04/03/22 15:44: POC Glucose 162 H 04/03/22 21:50: POC Glucose 185 H 04/04/22 03:56: WBC 11.3 H, RBC 3.06 L, Hgb 9.0 L, Hct 28.5 L, MCV 93.1, MCH 29.4, MCHC 31.6 L, RDW Std Deviation 44.7 H, RDW Coeff of Joana 13.2, Plt Count 255, MPV 12.2 H, Neut % (Auto) Not Reportable, Absolute Neuts (auto) 8.6 H, Absolute Lymphs (auto) 1.80, Total Counted 100, Neutrophils % (Manual) 76 H, Lymphocytes % (Manual) 16 L, Monocytes % (Manual) 3, Eosinophils % (Manual) 2, Myelocytes % 3 H, Diff Path Review May , Platelet Estimate ADEQUATE, RBC Morphology N CYTIC, Hypochromasia 1+ 04/04/22 03:56: Sodium 139, Potassium 4.3, Chloride 103, Carbon Dioxide 27.0, Anion Gap 9, BUN 56 H, Creatinine 4.05 H, Estim Creat Clear Calc 18.85, Est GFR (MDRD) Af Amer 19 L, Est GFR (MDRD) Non-Af 16 L, BUN/Creatinine Ratio 13.8, Glucose 108 H, Calcium 8.3 L, Total Bilirubin 0.30, AST 16, ALT 28, Alkaline Phosphatase 100, Total Protein 5.9 L, Albumin 2.2 L, Globulin 3.7, Albumin/Globulin Ratio 0.6 L 04/04/22 06:22: POC Glucose 101 Microbiology: Microbiology 04/01/22 16:03 Blood Culture (Wb) - Anticubital Right Blood Culture - Preliminary No growth in 48 hours. 04/01/22 15:43 Blood Culture (Wb) - No Site/Description Given Blood Culture - Preliminary No growth in 48 hours. 04/02/22 18:56 Urine, Clean Catch Legionella Antigen - Final 04/02/22 18:56 Urine, Clean Catch Streptococcus pneumoniae Antigen (M - Final 04/01/22 22:55 Mucosa - Nasopharyngeal Respiratory Panel (PCR) - Final 04/01/22 14:35 Nasal Secretion SARS-CoV-2 Antigen (Rapid) - Final D/C Instructions Discharge Diet: 1800 Calorie Control Diet and Renal Diet Weight Bearing Status: Weight bearing as tolerated Meaningful Use Info Meaningful Use Diagnoses (Choose all that apply): None applicable Discharge Plan Admission Admit Date/Time: 04/01/22 19:22 Primary Reason for Your Visit: Acute pneumonia Attending Provider: Ernestina Frausto Primary Care Provider: Jonathan Baptiste Consulting Providers: Daysi Magana ; Andrés Hernandes Instructions Additional Instructions / Restrictions: Continue to use your oxygen as prescribed Complete your antibiotics Follow-up with your primary care doctor within 1 week for reevaluation of your oxygen. Follow-up with dialysis as previously scheduled Patient Problems: Altered Health Status related to Hospitalization Patient Goals: *Optimal Level of Health *Keep Appointments *Medication Compliance *Remain Safe Discharge Orders/Prescriptions Prescriptions: New levofloxacin 500 mg tablet 500 mg PO Q48H 4 Days Qty: 2 0RF Continued ipratropium-albuterol 0.5 mg-3 mg(2.5 mg base)/3 mL solution for nebulization 3 ml INHALATION Q4H PRN (Reason: shortness of breath or wheezing) escitalopram oxalate [Lexapro] 20 mg tablet 20 mg PO DAILY nitroglycerin 0.4 MG tablet 0.4 mg SUBLINGUAL Q5M PRN (Reason: Chest Pain) oxycodone 5 MG tablet 5 mg PO BID PRN PRN (Reason: Pain) Label Comments: take 1 tablet by mouth twice a day if needed for pain Rx Instructions: 5-10mg finasteride 5 MG tablet 5 mg PO DAILY isosorbide mononitrate 30 MG tablet 30 mg PO DAILY cilostazol 100 mg tablet 100 mg PO QHS Rx Instructions: diazepam 5 MG tablet 5 - 10 mg PO BID PRN (Reason: anxiety) levothyroxine 88 MCG tablet 88 mcg PO DAILY Anoro Ellipta 62.5-25 mcg/actuation blister with device 1 inh inhalation Q24H loperamide 2 mg capsule 2 mg PO Q4H PRN PRN (Reason: Constipation) Label Comments: take 1 capsule by mouth every 4 hours if needed for LOOSE STOOL aspirin 81 mg tablet,delayed release (DR/EC) 81 mg PO DAILY Label Comments: take 1 tablet by mouth once daily albuterol sulfate 90 mcg/actuation HFA aerosol inhaler 2 puff INHALATION 4X/DAY Label Comments: inhale 2 puffs by mouth and INTO THE LUNGS four times a day ferrous sulfate 325 mg (65 mg iron) tablet,delayed release (DR/EC) 325 mg PO DAILY Label Comments: take 1 tablet by mouth once daily rosuvastatin 10 mg tablet 10 mg PO DAILY Label Comments: take 1 tablet by mouth once daily cholecalciferol (vitamin D3) [Vitamin D3] 50 mcg (2,000 unit) capsule 2,000 unit PO DAILY Label Comments: take 2 capsules by mouth once daily clopidogrel 75 mg tablet 75 mg PO DAILY insulin lispro 100 unit/mL insulin pen See Rx Instructions .ROUTE .COMPLEX Rx Instructions: PT STATES HE TAKE TID WITH MEALS PER SLIDING SCALE. HE IS UNABLE TO PROVIDE SLIDING SCALE INFO. insulin degludec [Tresiba FlexTouch U-100] 100 unit/mL (3 mL) insulin pen 25 unit SUBCUT BID Label Comments: inject 30 units subcutaneously twice a day Referrals / Follow Up: Jonathan Baptiste DO [Primary Care Provider] - 04/18/22 10:30 am (appointment is in the [place] office.) Disposition Disposition (needs filled in before D/C Order can be placed): Home, Self Care Charges/Coding Visit Charges Inpatient E&M: 94280 Disch Hosp >30min
[2022-04-04 11:35] LABS: Bedside Glucose 232 mg/dL (74-106)
[2022-04-05 10:08] LABS: Pathologist Review Reviewed
== END 2022-04-04 12:57 | disposition home or self-care (01) | DRG 193 ==
LOC: ED 16:16 → PCU 16:24
PROVIDERS: Admitting Provider Internal Medicine; Emergency Provider Emergency Medicine; PCP Student in an Organized Health Care Education/Training Program; Visit Provider Internal Medicine
DX: J18.9 Pneumonia, unspecified organism (principal); N18.6 End stage renal disease; I13.2 Hypertensive heart and chronic kidney disease with heart failure and with stage 5 chronic kidney disease, or end stage renal disease; J44.0 Chronic obstructive pulmonary disease with (acute) lower respiratory infection; I50.22 Chronic systolic (congestive) heart failure; J44.1 Chronic obstructive pulmonary disease with (acute) exacerbation; D63.1 Anemia in chronic kidney disease; E11.22 Type 2 diabetes mellitus with diabetic chronic kidney disease; I95.9 Hypotension, unspecified; Z79.4 Long term (current) use of insulin; Z99.2 Dependence on renal dialysis; I48.0 Paroxysmal atrial fibrillation; E11.65 Type 2 diabetes mellitus with hyperglycemia; D50.9 Iron deficiency anemia, unspecified; I25.5 Ischemic cardiomyopathy; E78.00 Pure hypercholesterolemia, unspecified; F17.210 Nicotine dependence, cigarettes, uncomplicated; J98.01 Acute bronchospasm; I25.10 Atherosclerotic heart disease of native coronary artery without angina pectoris; E03.9 Hypothyroidism, unspecified; G47.33 Obstructive sleep apnea (adult) (pediatric); I25.2 Old myocardial infarction; R09.02 Hypoxemia; Z20.822 Contact with and (suspected) exposure to COVID-19; Z79.82 Long term (current) use of aspirin; Z79.02 Long term (current) use of antithrombotics/antiplatelets; Z79.890 Hormone replacement therapy; Z79.899 Other long term (current) drug therapy; Z95.5 Presence of coronary angioplasty implant and graft; Z91.199 Patient's noncompliance with other medical treatment and regimen due to unspecified reason
CPT/HCPCS: 36415; 71045; 80048; 80053; 82962; 83605; 85025; 87040; 87449; 87633; 87811; 90937; 93005; 94640; 94760; 99252; 99284; 99406; J7040; A4216; G0257; G0463; Q5106

== ENCOUNTER 2022-04-29 07:49 | Inpatient (IN) | payer MEDICARE, MEDICAID, SELFPAY ==
[2022-04-29] VITALS (63 sets, daily range): BP systolic 78–147; BP diastolic 46–79; PULSE 83–121; RESP 8–30; TEMP 35.7–36.6; O2SAT 89–100; BMI 28.0; BMI 27.1
--- NOTE | 2022-04-29 07:50 | CPS ---
Decreased FiO2 to 80%.
--- NOTE | 2022-04-29 07:56 | CPS ---
Decreased FiO2 to 60%
--- NOTE | 2022-04-29 08:06 | EKG12_ITS ---
Test Reason : SOB Blood Pressure : / mmHG Vent. Rate : 121 BPM Atrial Rate : 121 BPM P-R Int : 168 ms QRS Dur : 082 ms QT Int : 304 ms P-R-T Axes : 018 036 103 degrees QTc Int : 431 ms Sinus tachycardia Nonspecific ST and T wave abnormality Abnormal ECG Confirmed by LAYO ASIF, THU ([id number]), editorial clerk JARED MADRID ([id number]) on 04/30/2022 10:07:09 AM Referred By: LOLA Confirmed By:THU VASQUES MD
--- NOTE | 2022-04-29 08:09 | EDS_ITS ---
HPI History of Present Illness Chief Complaint: Shortness of Breath Informant: patient and EMS Limited: other (resp distress) Onset/Context/Timing Current Severity: Severe Maximum Severity: Severe Worsened by: Exertion and Lying flat Relieved by: Oxygen and - (cpap by EMS) Associated Symptoms Negative for cough Chest Pain: Positive for None Narrative Narrative: Patient presents by EMS in respiratory distress, improved after they started him on CPAP, when I first got to him his pulse ox was in the 70s, they started him on a breathing treatment and it went down into the 60s which is when they started CPAP. Patient indicates he has been short of breath for a few days. Denies any cough or fevers/chills. No chest pain. No swelling in his legs. He does confirm he has a history of COPD, he is unsure about congestive heart failure. He is a dialysis patient. He states he has not missed any sessions recently, and he is due today for hemodialysis. He states his flotation operator is Dr. Daysi Magana. [facility] Medical History Acute exacerbation of chronic obstructive pulmonary disease (COPD) Acute HFrEF (heart failure with reduced ejection fraction) Acute renal failure superimposed on stage 4 chronic kidney disease Acute respiratory failure with hypoxemia Anemia of chronic renal failure Anxiety Atherosclerosis of coronary artery of [place] heart without angina pectoris Back pain C. difficile colitis Cancer Cardiology follow-up encounter Cholelithiasis Chronic renal failure, stage 4 (severe) Colon cancer COPD (chronic obstructive pulmonary disease) CPAP (continuous positive airway pressure) dependence Depression DM type 2 causing CKD stage 4 Elevated troponin Essential (primary) hypertension Former smoker Gastric reflux Gastroenteritis Gout Heme + stool Hemorrhoids High cholesterol History of echocardiogram History of GI bleed History of IBS Hyperkalemia, diminished renal excretion Hyperlipidemia Hypertension Hyponatremia Hypotension, unspecified Increased PTH level Infectious encephalopathy Influenza B Injury of head and neck Insulin dependent diabetes mellitus Iron deficiency anemia Ischemic cardiomyopathy Low vitamin D level Lower GI bleed Metabolic acidosis Myocardial infarct Nocturnal hypoxia Non-STEMI (non-ST elevated myocardial infarction) Noncompliance with CPAP treatment NSAID long-term use NSTEMI (non-ST elevated myocardial infarction) (07/2018) NSVT (nonsustained ventricular tachycardia) On home oxygen therapy LADARIUS (obstructive sleep apnea) Paroxysmal atrial fibrillation Peripheral vascular disease Pseudomembranous enterocolitis Radiculopathy affecting upper extremity Septic shock Severe sepsis Shortness of breath on exertion Skin tear Sleep apnea Stage 3 severe COPD by GOLD classification Streptococcal pneumonia Uremia of renal origin Urinary retention due to benign prostatic hyperplasia Wears dentures Home Medications nitroglycerin 0.4 mg sublingual tablet 0.4 mg sublingual Q5M PRN Chest Pain 05/14/17 [History Last Taken Unknown] oxycodone 5 mg tablet 5 mg PO BID PRN PRN Pain 05/14/17 [History Last Taken 04/28/22] finasteride 5 mg tablet 5 mg PO DAILY prostate 09/15/17 [History Last Taken 04/28/22] isosorbide mononitrate 30 mg tablet,extended release 24 hr 15 mg PO DAILY heart 09/15/17 [History Last Taken 04/28/22] diazepam 5 mg tablet 5 - 10 mg PO BID PRN anxiety 05/12/18 [History Last Taken 04/29/22] cilostazol 100 mg tablet 100 mg PO QHS cirrulation 09/30/19 [History Last Taken 04/28/22] escitalopram oxalate 20 mg tablet (Lexapro) 20 mg PO DAILY depression 09/30/19 [History Last Taken 04/28/22] ipratropium 0.5 mg-albuterol 3 mg (2.5 mg base)/3 mL nebulization soln 3 ml inhalation Q4H PRN shortness of breath or wheezing 09/30/19 [History Last Taken 04/28/22] levothyroxine 88 mcg tablet 88 mcg PO DAILY thyroid 12/07/19 [History Last Taken 04/28/22] umeclidinium 62.5 mcg-vilanterol 25 mcg/actuation powdr for inhalation (Anoro Ellipta) 1 inh inhalation Q24H breathing 08/31/20 [History Last Taken 04/28/22] albuterol sulfate 90 mcg/actuation aerosol inhaler 2 puff inhalation 4X/DAY breathing 04/28/21 [History Last Taken 04/29/22] aspirin 81 mg tablet,delayed release 81 mg PO DAILY heart health 04/28/21 [History Last Taken 04/28/22] cholecalciferol (vitamin D3) 50 mcg (2,000 unit) capsule (Vitamin D3) 2,000 unit PO DAILY vitamin 04/28/21 [History Last Taken 04/28/22] ferrous sulfate 325 mg (65 mg iron) tablet,delayed release 325 mg PO DAILY supplement 04/28/21 [History Last Taken 04/28/22] loperamide 2 mg capsule 2 mg PO Q4H PRN PRN Constipation 04/28/21 [History Last Taken 04/26/22] rosuvastatin 10 mg tablet 10 mg PO DAILY cholesterol 04/28/21 [History Last Taken 04/28/22] clopidogrel 75 mg tablet 75 mg PO DAILY HEART 04/01/22 [History Last Taken 04/28/22] insulin degludec 100 unit/mL (3 mL) subcutaneous pen (Tresiba FlexTouch U-100 insulin) 20 - 25 unit subcut BID diabetes 04/01/22 [History Last Taken 04/29/22] insulin lispro 100 unit/mL subcutaneous pen See Rx Instructions .Route .COMPLEX DM 04/01/22 [History Last Taken 04/29/22] Allergy/AdvReac Type Severity Reaction Status Date / Time No Known Allergies Allergy Verified 04/29/22 07:58 Family History Father Leukemia Mother COPD (chronic obstructive pulmonary disease) Surgical History H/O colectomy H/O pneumonectomy History of coronary artery stent placement (02/28/21) History of esophagogastroduodenoscopy (EGD) History of left heart catheterization (02/27/21) Hx of craniotomy S/P arteriovenous (AV) fistula creation Status post colon resection Status post insertion of dialysis catheter (07/2018) Social History household members: spouse housing: other details: mobile home current occupational status: disabled pets and animals: Yes pets and animals: dog(s) Smoking Status: Current every day smoker tobacco type: cigarettes Tobacco: How many years used: 40 second hand exposure: No alcohol intake: never substance use type: does not use ROS ROS ED Review of Systems ROS Unobtainable: other Details: Limited due to acuity and BiPAP mask Constitutional Constitutional ED: Denies chills or fever(s) Cardiovascular Cardiovascular: Denies chest pain, leg edema or palpitations Respiratory/Chest Respiratory/Chest: Reports dyspnea; Denies cough Gastrointestinal Gastrointestinal: Denies nausea or vomiting Neurologic Neurologic: Denies headache(s), paresthesias or weakness EXAM Physical Exam Const Vital Signs: 04/29/22 07:50 04/29/22 07:54 04/29/22 07:55 Temperature 96.2 F L 96.2 F L Temperature Source Temporal Temporal Pulse Rate 121 H 118 H Respiratory Rate 29 H 23 H Respiratory Effort Short of Breath Labored Respiratory Depth Deep Respiratory Pattern Hyperpnea Blood Pressure 147/79 H 147/79 H Blood Pressure Mean 101 101 Pulse Ox 100 100 Oxygen Delivery Method Bi-pap Bi-pap Bi-pap Oxygen Flow Rate (L/min) Fraction of Inspired Oxygen (FIO2) 100 80 80 04/29/22 07:50 04/29/22 07:55 04/29/22 08:18 Temperature Temperature Source Pulse Rate 115 H Respiratory Rate 24 H Respiratory Effort Respiratory Depth Respiratory Pattern Blood Pressure Blood Pressure Mean Pulse Ox 100 100 Oxygen Delivery Method Bi-pap Oxygen Flow Rate (L/min) Fraction of Inspired Oxygen (FIO2) 100 80 60 04/29/22 08:43 04/29/22 08:46 04/29/22 08:45 Temperature Temperature Source Pulse Rate 95 95 Respiratory Rate 20 H 20 H 20 H Respiratory Effort Respiratory Depth Respiratory Pattern Blood Pressure 89/56 L Blood Pressure Mean 67 Pulse Ox 100 99 Oxygen Delivery Method Bi-pap Oxygen Flow Rate (L/min) Fraction of Inspired Oxygen (FIO2) 35 35 35 04/29/22 08:57 04/29/22 09:06 04/29/22 09:11 Temperature 96.9 F L 97.1 F L Temperature Source Temporal Temporal Pulse Rate 91 90 Respiratory Rate 19 H 18 Respiratory Effort Respiratory Depth Respiratory Pattern Blood Pressure 83/49 L 78/46 L Blood Pressure Mean 60 56 Pulse Ox 94 94 95 Oxygen Delivery Method Bi-pap Bi-pap Nasal Cannula Oxygen Flow Rate (L/min) 25 2 Fraction of Inspired Oxygen (FIO2) 25 04/29/22 09:20 Temperature Temperature Source Pulse Rate Respiratory Rate Respiratory Effort Respiratory Depth Respiratory Pattern Blood Pressure Blood Pressure Mean Pulse Ox 98 Oxygen Delivery Method Nasal Cannula Oxygen Flow Rate (L/min) 2 Fraction of Inspired Oxygen (FIO2) Positive well nourished and well developed Constitutional Narrative: Respiratory distress General Appearance ED: well developed HEENT Reports moist mucous membranes normocephalic and atraumatic Eyes PERRL and EOMs intact bilaterally Neck full ROM, no lymphadenopathy, supple and no JVD Resp Resp Narrative: Respiratory distress, diffuse bibasilar crackles, apices sound more clear and diminished symmetrically Cardio regular rate and regular rhythm Cardio Narrative: Very faint heart sounds. Tachycardic. GI non-tender and non-distended Auscultation: normoactive bowel sounds Palpation: soft Back/Spine no CVA tenderness General Back: other FROM Extremity normal to inspection General Extremety ED: Negative for edema, pulses abnormal or tenderness General Extremity: Negative for edema or pulses abnormal Neuro CN's II-XII intact bilaterally and no sensory deficits noted Neuro Narrative: Answers questions appropriately. Keenly alert. Sensorium / Orientation: awake and alert Motor Exam: strength 5/5 throughout Skin no rashes or lesions noted and no wounds Sepsis Attestation Sepsis Alert: Yes Sepsis Attestation: Agree w/Sepsis Date exam was performed: 04/29/22 Time exam was performed: 09:00 Possible Source of Sepsis: Pulmonary Sepsis Organ Dysfunction Criteria Present: SBP < 90 mmHg or MAP < 65 mmHg, Acute Respiratory Failure (New need for BiPAP/CPAP or MV), Creatinine > 2.0 mg/dL and Lactic Acid > 2 mmol/L Fluid Resuscitation Fluid resuscitation indicated?: Yes Fluid Resuscitation ordered: Lesser volume fluid bolus ordered Reason for lesser fluid bolus:: Renal Failure Sepsis Note Date exam was performed: 04/29/22 Time exam was performed: 09:25 Sepsis Attestation: Sepsis re-evaluation was performed Response to fluids: Fluid responsive hypotension MDM MDM MDM Narrative Medical decision making narrative: Patient seen and simultaneously placed on BiPAP upon arrival, he states that is helping with his dyspnea. We have him well into the 90%'s on BiPAP with his FiO2 down to 60%. His EKG shows sinus tachycardia no sign of an acute injury. VBG was obtained quickly after arrival and shows respiratory acidosis with a pH of 7.23 and a PCO2 of 60, venous sample. While awaiting for his work-up to be done, the patient started dropping his blood pressure into the 80s. I decreased the pressures on the BiPAP since the patient was breathing much better, satting at 100%, keenly alert, and decrease his heart rate down to 90s sinus rhythm on the monitor, verbally responding that yes, he was breathing much better despite his hypercapnia and initial respiratory distress. This did not fix his blood pressures quickly so I gave him a 250 cc bolus of IV fluids. The chest x-ray appears to show progressive bibasilar infiltrates more suggestive of infection than gross pulmonary edema. I asked the patient if he was drinking more fluids or eating more salt than normal and he stated no to both. He is coughing some here. Therefore I am giving him more fluids, treating him for pneumonia, after adding the rest of the sepsis protocol to his work-up, I am giving him meropenem and levaquin to help cover for atypicals, his only risk factor for MDR gram-negative bacterial etiology is diabetes, but the other sepsis treatment protocols for healthcare associated pneumonia since he is a dialysis patient do not include coverage for atypicals. Prior to giving him any more fluids after the 250 cc, nursing tried to take him off BiPAP and he is doing well on a 2 L nasal cannula, 98%, sleepy, and blood pressure up to 92 systolic. Therefore holding off on more fluids for now given his renal failure, plan is admission to the ICU. We took him off the nasal cannula completely, he desatted down to 86% fairly quickly, so we put him back on it he is keenly alert and breathing better and able to talk more. He has been coughing for the last several days not bringing anything up, states he had pneumonia several weeks ago here. I do not think he needs emergent dialysis right now based on all of the information I have, especially since he is relatively hypotensive, bouncing between the 80s and 90s systolic. His troponin is elevated probably due to his hypoxemia. Discussed with ICU Dr. Bonilla who is aware. Discussed with hospitalist. Lab Data Attestation: I reviewed the patient's lab results. Labs: Laboratory Results - last 24 hr 04/29/22 04/29/22 04/29/22 07:56 07:56 07:56 WBC 16.0 H RBC 2.87 L Hgb 8.3 L Hct 28.4 L MCV 99.0 H MCH 28.9 MCHC 29.2 L RDW Std Deviation 56.2 H RDW Coeff of Joana 15.9 H Plt Count 427 MPV 11.1 Immature Gran % (Auto) 1.600 H Neut % (Auto) 73.8 H Lymph % (Auto) 17.3 L [place] % (Auto) 5.8 Eos % (Auto) 0.9 Baso % (Auto) 0.6 Absolute Neuts (auto) 11.8 H Absolute Lymphs (auto) 2.76 Nucleated RBC % 0 PT INR APTT Sodium 140 Potassium 4.9 Chloride 105 Carbon Dioxide 25.0 Anion Gap 10 BUN 61 H Creatinine 5.68 H Estim Creat Clear Calc 13.44 Est GFR (MDRD) Af Amer 13 L Est GFR (MDRD) Non-Af 11 L BUN/Creatinine Ratio 10.7 Glucose 299 H Lactic Acid 3.4 H* Calcium 9.1 Troponin I High Sens 269 H* 04/29/22 09:45 WBC RBC Hgb Hct MCV MCH MCHC RDW Std Deviation RDW Coeff of Joana Plt Count MPV Immature Gran % (Auto) Neut % (Auto) Lymph % (Auto) [place] % (Auto) Eos % (Auto) Baso % (Auto) Absolute Neuts (auto) Absolute Lymphs (auto) Nucleated RBC % PT 13.4 INR 1.1 APTT 33.9 Sodium Potassium Chloride Carbon Dioxide Anion Gap BUN Creatinine Estim Creat Clear Calc Est GFR (MDRD) Af Amer Est GFR (MDRD) Non-Af BUN/Creatinine Ratio Glucose Lactic Acid Calcium Troponin I High Sens ABG Data ABG results: ABG 04/29/22 08:04 Specimen Type SHERI VBG pH 7.23 L VBG pO2 48 H VBG HCO3 25 VBG Total CO2 27 VBG O2 Sat (Calc) 75 H VBG Base Excess -3 L POC Mix VBG pCO2 Pt Tmp 59.1 H Radiography Diagnostic Testing: Clinical Impression(s) from Imaging Studies Chest X-Ray 04/29/22 08:35 IMPRESSION: Progressive bibasilar infiltrates worse on the left lung base with blunting of both gastric angles. Progressive increase in size of the nodular density in the right upper lobe. Persistent volume loss in the upper medial aspect of the right upper lobe with the displacement of the trachea to the right side of the midline. Electronically Signed: Herbert Carroll MD at 9:00 EST , Rhythm Strip Rhythm Strip: Sinus Tach Rate: 120 Ectopy: None EKG Initial EKG: Attestation: I personally reviewed and interpreted this EKG as follows: Interpretation: No Acute Injury Pattern and Sinus Tachycardia Prior EKG tracings: available for review Prior: Unchanged Critical Care Time Critical Care Time: Yes Critical care time (excluding procedures): 30-74 minutes (40 min), Including time spent:, Discussing w/Patient &/or Family/Photogravure Press Operator, Discussing w/Consultants, Arranging Admission or Transfer and Performing Direct Patient Care at Bedside Discharge Plan Dx/Rx/DC Orders Clinical Impression: Acute respiratory failure with hypoxia and hypercapnia, ESRD (end stage renal disease) on dialysis, Pneumonia, Sepsis, Elevated troponin, Hypotension Disposition Disposition: Acute Care [facility]
[2022-04-29 08:11] LABS: Blood Gas Specimen Type VEN; VBG BASE EXCESS -3 mmol/L (-1.0-3.5); VBG Bicarbonate 25 mmol/L (22-26); VBG PO2 48 mmHg (25-40); VBG SO2 75 % (50-70); VBG TCO2 27 mmol/L (23-33); VBG pCO2 59.1 mmHg (41-51); VBG pH 7.23 (7.32-7.42)
[2022-04-29 08:14] LABS: Absolute Lymphocyte Count 2.76 X10^3/uL (0.83-4.51); Absolute Neutrophil Count 11.8 X10^3/uL (2.0-7.7); Basophil% 0.6 % (0-1); Eosinophil# 0.15 X10^3/uL; Eosinophils% 0.9 % (0-5); Hematocrit 28.4 % (40-54); Hemoglobin 8.3 g/dL (13.0-16.5); Lymphocyte # 2.76 X10^3/ul (0.83-4.51); Lymphocyte % 17.3 % (19-41); Mean Corp Hgb Conc 29.2 g/dL (32-36); Mean Corpuscular Hgb 28.9 pg (27.0-32.0); Mean Platelet Vol. 11.1 fl (6.2-12.0); Monocyte# 0.93 X10^3/uL; Monocyte% 5.8 % (0-10); NRBC Flagged by Analyzer 0 % (0-5); Neutrophil # 11.76 X10^3/uL (2.7-7.7); Neutrophil % 73.8 % (47-70); Platelet Count 427 K/mm3 (150-450); RBC Distribution Width CV 15.9 % (11.6-14.6); RBC Distribution Width SD 56.2 fl (35.1-43.9); Red Blood Count 2.87 M/mm3 (4.6-6.2)
[2022-04-29 08:35] LABS: Anion Gap 10 (5-15); BUN 61 mg/dL (7-18); BUN/Creat Ratio 10.7 RATIO (10-20); Calcium,Total 9.1 mg/dL (8.5-10.1); Chloride 105 mmol/L (98-107); Creatinine, Serum 5.68 mg/dL (0.70-1.30); EST Glomerular Filtration Rate 11 mL/min (>60); Est Glom Filt Rate - Afr Amer 13 mL/min (>60); Estimated Creatinine Clearance 13.44 ml/min; Glucose 299 mg/dL (74-106); Potassium 4.9 mmol/L (3.5-5.1); Sodium Level 140 mmol/L (136-145); Troponin-I HS 269 pg/mL (3.0-78.0)
--- NOTE | 2022-04-29 08:35 | RAD_ITS ---
STUDY: X-RAY CHEST REASON FOR EXAM: Male, 66 years old. Sob TECHNIQUE: Single AP portable view of the chest. COMPARISON: Comparison is made with prior study dated 04/01/2022. FINDINGS: EKG electrodes are seen. Progressive infiltrates at both lung bases more prominent on the left side with blunting of both costophrenic angles. Increased size of the ill-defined nodular density in the right upper lobe with increased markings in the right upper lobe adjacent to the minor fissure. Normal size heart. Normal mediastinum and elizabeth. Normal visualized pulmonary arteries. Normal visualized aortic arch and descending thoracic aorta. There are diffuse degenerative changes of the visualized thoracic spine. Normal visualized ribs, clavicles, and shoulders. There is no demonstrated abnormality of the visualized soft tissue structures of the upper abdomen. RAD/Chest 1 View (Portable) IMPRESSION: Progressive bibasilar infiltrates worse on the left lung base with blunting of both gastric angles. Progressive increase in size of the nodular density in the right upper lobe. Persistent volume loss in the upper medial aspect of the right upper lobe with the displacement of the trachea to the right side of the midline. Electronically Signed: Herbert Carroll MD at 9:00 EST ,
[2022-04-29] MEDS: levoFLOXacin IV 750 MG/150 ML BAG 100 MG IV (09:25)
[2022-04-29 09:43] LABS: Lactic Acid 3.4 mmol/L (0.4-1.9)
[2022-04-29 10:01] LABS: International Normalized Ratio 1.1; Partial Thromboplast Time 33.9 Seconds (24.1-36.2); Prothrombin Time (Protime)PT. 13.4 SECONDS (11.7-14.9)
--- NOTE | 2022-04-29 10:08 | NURSING ---
DR ADAME RETURNED CALL
--- NOTE | 2022-04-29 10:10 | NURSING ---
DR DUMONT FOR DR DAVILA
--- NOTE | 2022-04-29 10:30 | NURSING ---
ICU 5 [facility]UL[facility] ACUTE RESP FAILURE, PNEUMONIA, ESRD/HD, HYPOTN
[2022-04-29 10:39] LABS: Magnesium 2.1 mg/dL (1.6-2.6); Phosphorus 5.4 mg/dL (2.5-4.9)
[2022-04-29] MEDS: 0.9% Normal Saline 1,000 ML 100 ML IV (11:41)
--- NOTE | 2022-04-29 12:23 | PCM.HP.STD ---
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 Dizziness lightheadedness. 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 Patient stated he slept fine without any problem but shortness of breath woke him up. He was also feeling diaphoretic, mild dizziness and respiratory distress. He put on the oxygen but was still hypoxic 70% on 2 L. He states he has home oxygen but usually does not use at night or on exertion. He denies any chest pain or pressure or tightness. He has history of coronary artery disease and had 6 stent last 2 stents couple of years ago. He recently was admitted for pneumonia in March 2022 after he signed AMA from [facility] for pneumonia. In ED, patient was hypotensive, BP 89/56, tachycardic, hypoxic and respiratory distress and was put on BiPAP. He was given 1 L normal saline bolus and hypotension recovered. Chest x-ray individually reviewed and shows a right small pleural effusion, progressive bibasilar infiltrate left more than right. Patient is started on broad-spectrum antibiotic. [facility] Medical History Acute exacerbation of chronic obstructive pulmonary disease (COPD) Acute HFrEF (heart failure with reduced ejection fraction) Acute renal failure superimposed on stage 4 chronic kidney disease Acute respiratory failure with hypoxemia Anemia of chronic renal failure Anxiety Atherosclerosis of coronary artery of [place] heart without angina pectoris Back pain C. difficile colitis Cancer Cardiology follow-up encounter Cholelithiasis Chronic renal failure, stage 4 (severe) Colon cancer COPD (chronic obstructive pulmonary disease) CPAP (continuous positive airway pressure) dependence Depression DM type 2 causing CKD stage 4 Elevated troponin Essential (primary) hypertension Former smoker Gastric reflux Gastroenteritis Gout Heme + stool Hemorrhoids High cholesterol History of echocardiogram History of GI bleed History of IBS Hyperkalemia, diminished renal excretion Hyperlipidemia Hypertension Hyponatremia Hypotension, unspecified Increased PTH level Infectious encephalopathy Influenza B Injury of head and neck Insulin dependent diabetes mellitus Iron deficiency anemia Ischemic cardiomyopathy Low vitamin D level Lower GI bleed Metabolic acidosis Myocardial infarct Nocturnal hypoxia Non-STEMI (non-ST elevated myocardial infarction) Noncompliance with CPAP treatment NSAID long-term use NSTEMI (non-ST elevated myocardial infarction) (07/2018) NSVT (nonsustained ventricular tachycardia) On home oxygen therapy LADARIUS (obstructive sleep apnea) Paroxysmal atrial fibrillation Peripheral vascular disease Pseudomembranous enterocolitis Radiculopathy affecting upper extremity Septic shock Severe sepsis Shortness of breath on exertion Skin tear Sleep apnea Stage 3 severe COPD by GOLD classification Streptococcal pneumonia Uremia of renal origin Urinary retention due to benign prostatic hyperplasia Wears dentures Home Medications nitroglycerin 0.4 mg sublingual tablet 0.4 mg sublingual Q5M PRN Chest Pain 05/14/17 [History Last Taken Unknown] oxycodone 5 mg tablet 5 mg PO BID PRN PRN Pain 05/14/17 [History Last Taken 04/28/22] finasteride 5 mg tablet 5 mg PO DAILY prostate 09/15/17 [History Last Taken 04/28/22] isosorbide mononitrate 30 mg tablet,extended release 24 hr 15 mg PO DAILY heart 09/15/17 [History Last Taken 04/28/22] diazepam 5 mg tablet 5 - 10 mg PO BID PRN anxiety 05/12/18 [History Last Taken 04/29/22] cilostazol 100 mg tablet 100 mg PO QHS cirrulation 09/30/19 [History Last Taken 04/28/22] escitalopram oxalate 20 mg tablet (Lexapro) 20 mg PO DAILY depression 09/30/19 [History Last Taken 04/28/22] ipratropium 0.5 mg-albuterol 3 mg (2.5 mg base)/3 mL nebulization soln 3 ml inhalation Q4H PRN shortness of breath or wheezing 09/30/19 [History Last Taken 04/28/22] levothyroxine 88 mcg tablet 88 mcg PO DAILY thyroid 12/07/19 [History Last Taken 04/28/22] umeclidinium 62.5 mcg-vilanterol 25 mcg/actuation powdr for inhalation (Anoro Ellipta) 1 inh inhalation Q24H breathing 08/31/20 [History Last Taken 04/28/22] albuterol sulfate 90 mcg/actuation aerosol inhaler 2 puff inhalation 4X/DAY breathing 04/28/21 [History Last Taken 04/29/22] aspirin 81 mg tablet,delayed release 81 mg PO DAILY heart health 04/28/21 [History Last Taken 04/28/22] cholecalciferol (vitamin D3) 50 mcg (2,000 unit) capsule (Vitamin D3) 2,000 unit PO DAILY vitamin 04/28/21 [History Last Taken 04/28/22] ferrous sulfate 325 mg (65 mg iron) tablet,delayed release 325 mg PO DAILY supplement 04/28/21 [History Last Taken 04/28/22] loperamide 2 mg capsule 2 mg PO Q4H PRN PRN Constipation 04/28/21 [History Last Taken 04/26/22] rosuvastatin 10 mg tablet 10 mg PO DAILY cholesterol 04/28/21 [History Last Taken 04/28/22] clopidogrel 75 mg tablet 75 mg PO DAILY HEART 04/01/22 [History Last Taken 04/28/22] insulin degludec 100 unit/mL (3 mL) subcutaneous pen (Tresiba FlexTouch U-100 insulin) 20 - 25 unit subcut BID diabetes 04/01/22 [History Last Taken 04/29/22] insulin lispro 100 unit/mL subcutaneous pen See Rx Instructions .Route .COMPLEX DM 04/01/22 [History Last Taken 04/29/22] Allergy/AdvReac Type Severity Reaction Status Date / Time No Known Allergies Allergy Verified 04/29/22 07:58 Family History Father Leukemia Mother COPD (chronic obstructive pulmonary disease) Surgical History H/O colectomy H/O pneumonectomy History of coronary artery stent placement (02/28/21) History of esophagogastroduodenoscopy (EGD) History of left heart catheterization (02/27/21) Hx of craniotomy S/P arteriovenous (AV) fistula creation Status post colon resection Status post insertion of dialysis catheter (07/2018) Social History household members: spouse housing: other details: mobile home current occupational status: disabled pets and animals: Yes pets and animals: dog(s) Smoking Status: Current every day smoker tobacco type: cigarettes Tobacco: How many years used: 40 second hand exposure: No alcohol intake: never substance use type: does not use ROS ROS Narrative Constitutional: Reports fatigue and weakness. [place] chilled, diaphoretic and cold in the morning today HEENT: Reports systems reviewed and no addt'l complaints, except as documented Respiratory/Chest: Denies chest pain/pressure. Rest as described in HPI. Chronic dyspnea on exertion Gastrointestinal: Denies coffee ground emesis, hematemesis or vomiting Genitourinary: Denies burning urination or new urinary tract symptoms. On hemodialysis. Spontaneous voiding twice daily. Musculoskeletal: Reports joint pain and limited range of motion, degenerative arthritis of knees and hips Neurologic: Denies seizure-like activity. No stroke skin: No ulcer. No rash Endocrinology: Reports systems reviewed and no addt'l complaints, except as documented Hematologic/Lymphatic: Reports systems reviewed and no addt'l complaints, except as documented Rest 14 ROS are negative except as mentioned in HPI Vital Signs Vital Signs Vital Signs: 04/29/22 07:50 04/29/22 07:54 04/29/22 07:55 Temperature 96.2 F L 96.2 F L Temperature Source Temporal Temporal Pulse Rate 121 H 118 H Respiratory Rate 29 H 23 H Respiratory Effort Short of Breath Labored Respiratory Depth Deep Respiratory Pattern Hyperpnea Blood Pressure 147/79 H 147/79 H Blood Pressure Mean 101 101 Pulse Ox 100 100 Oxygen Delivery Method Bi-pap Bi-pap Bi-pap Oxygen Flow Rate (L/min) Fraction of Inspired Oxygen (FIO2) 100 80 80 04/29/22 07:50 04/29/22 07:55 04/29/22 08:18 Temperature Temperature Source Pulse Rate 115 H Respiratory Rate 24 H Respiratory Effort Respiratory Depth Respiratory Pattern Blood Pressure Blood Pressure Mean Pulse Ox 100 100 Oxygen Delivery Method Bi-pap Oxygen Flow Rate (L/min) Fraction of Inspired Oxygen (FIO2) 100 80 60 04/29/22 08:43 04/29/22 08:46 04/29/22 08:45 Temperature Temperature Source Pulse Rate 95 95 Respiratory Rate 20 H 20 H 20 H Respiratory Effort Respiratory Depth Respiratory Pattern Blood Pressure 89/56 L Blood Pressure Mean 67 Pulse Ox 100 99 Oxygen Delivery Method Bi-pap Oxygen Flow Rate (L/min) Fraction of Inspired Oxygen (FIO2) 35 35 35 04/29/22 08:57 04/29/22 09:06 04/29/22 09:11 Temperature 96.9 F L 97.1 F L Temperature Source Temporal Temporal Pulse Rate 91 90 Respiratory Rate 19 H 18 Respiratory Effort Respiratory Depth Respiratory Pattern Blood Pressure 83/49 L 78/46 L Blood Pressure Mean 60 56 Pulse Ox 94 94 95 Oxygen Delivery Method Bi-pap Bi-pap Nasal Cannula Oxygen Flow Rate (L/min) 25 2 Fraction of Inspired Oxygen (FIO2) 25 04/29/22 09:20 04/29/22 10:32 04/29/22 11:35 Temperature 97.5 F L Temperature Source Temporal Pulse Rate 83 Respiratory Rate 15 Respiratory Effort Respiratory Depth Respiratory Pattern Blood Pressure 111/56 L Blood Pressure Mean 74 Pulse Ox 98 97 99 Oxygen Delivery Method Nasal Cannula Nasal Cannula Nasal Cannula Oxygen Flow Rate (L/min) 2 2 2 Fraction of Inspired Oxygen (FIO2) Weight Weight: 194 lb 3 oz Body Mass Index (BMI) 27.1 Physical Exam Narrative Physical exam General: Alert, Oriented x3, Cooperative HEENT: Atraumatic, PERRLA, EOMI, Normocephalic Oral: Oral mucosa moist. No Gingival or Mucosal Lesions/ Ulcerations Neck: Supple, No JVD, Negative Carotid Bruits Lungs: Air entry diminished in diffusely in all lung [place]. No expiratory rhonchi or crepitations Cardiovascular: Sinus tachycardia, normal S1, Normal S2, no murmur gallop or rub. Abdomen: Midline surgical abdominal scar. Bowel Sounds Present, Soft, Non Tender, Non-Distended : No renal angle tenderness. No suprapubic tenderness. Extremities: No edema, Capillary Refill Less than 3 Seconds Skin: No rashes, No breakdown Musculoskeletal: Arthritic changes in knee and hip joints. ROM full. No Tenderness to Palpation of Joints or Extremities Neurological: Cranial nerves II-XII grossly intact, DTR 2+/4 and Symmetrical. Psych/Mental Status: Flat affect. Results Lab / Micro Data Result Diagrams: 04/29/22 07:56 04/29/22 07:56 Labs: Laboratory Results - last 24 hr 04/29/22 07:56: WBC 16.0 H, RBC 2.87 L, Hgb 8.3 L, Hct 28.4 L, MCV 99.0 H, MCH 28.9, MCHC 29.2 L, RDW Std Deviation 56.2 H, RDW Coeff of Joana 15.9 H, Plt Count 427, MPV 11.1, Immature Gran % (Auto) 1.600 H, Neut % (Auto) 73.8 H, Lymph % (Auto) 17.3 L, [place] % (Auto) 5.8, Eos % (Auto) 0.9, Baso % (Auto) 0.6, Absolute Neuts (auto) 11.8 H, Absolute Lymphs (auto) 2.76, Nucleated RBC % 0 04/29/22 07:56: Sodium 140, Potassium 4.9, Chloride 105, Carbon Dioxide 25.0, Anion Gap 10, BUN 61 H, Creatinine 5.68 H, Estim Creat Clear Calc 13.44, Est GFR (MDRD) Af Amer 13 L, Est GFR (MDRD) Non-Af 11 L, BUN/Creatinine Ratio 10.7, Glucose 299 H, Calcium 9.1, Troponin I High Sens 269 H* 04/29/22 07:56: Lactic Acid 3.4 H* 04/29/22 07:56: Phosphorus 5.4 H, Magnesium 2.1 04/29/22 09:45: PT 13.4, INR 1.1, APTT 33.9 Micro: Microbiology 04/29/22 08:14 Nasal Secretion SARS-CoV-2 & FLU Antigen (Rapid) - Final ABG Data ABG results: ABG 04/29/22 08:04 Specimen Type SHERI VBG pH 7.23 L VBG pO2 48 H VBG HCO3 25 VBG Total CO2 27 VBG O2 Sat (Calc) 75 H VBG Base Excess -3 L POC Mix VBG pCO2 Pt Tmp 59.1 H Rhythm Strip Rhythm Strip: Sinus Tach Rate: 120 Ectopy: None Radiology Impression Chest X-Ray 04/29/22 08:35 IMPRESSION: Progressive bibasilar infiltrates worse on the left lung base with blunting of both gastric angles. Progressive increase in size of the nodular density in the right upper lobe. Persistent volume loss in the upper medial aspect of the right upper lobe with the displacement of the trachea to the right side of the midline. Electronically Signed: Herbert Carroll MD at 9:00 EST , Assessment & Plan Assessment/Plan (1) Acute respiratory failure with hypoxia and hypercapnia: (2) Pneumonia: PLAN: Plan This is a 66-year-old male being admitted for sudden onset of shortness of breath during sleep along with dizziness and found to be hypotensive and severely hypoxic. 1. Acute sudden onset hypoxic and hypercarbic respiratory failure: Patient is being admitted in ICU. VBG 7.48 suggestive of acute hypoxic and hypercarbic respiratory failure. Bicarb normal 25. Exact etiology unclear but possible pulmonary embolism in view of history of malignancy, pneumonia, COPD exacerbation, non-STEMI. Ostrich Farmer consulted Modified Wells criteria for PE about [address] angiogram ordered to rule out PE. 2. Sepsis possible due to bilateral pneumonia: The patient presented with sepsis due to bilateral pneumonia with acute sepsis-related organ dysfunction as evidenced by acute hypoxic and hypercarbic respiratory failure, hypotension responsive to IV fluid bolus, and lactic acidosis. Liver chemistry ordered. Patient has elevated creatinine from end-stage kidney disease. Hypotension has recovered. Patient on broad-spectrum IV antibiotic vancomycin and Zosyn. Chest x-ray shows bibasilar progressive infiltrate. Pneumonia work-up including blood cultures x2 ordered. Rapid SARS-CoV-2 and flu antigen are negative 3. Coronary artery disease status post stent possible non-STEMI: Patient has progressively increasing high sensitive troponin. Denies any chest pain or tightness or pressure even at home. Twelve-lead EKG from EMS and ER reviewed and shows slight ST depression in V5 to V6, sinus tachycardia 121 bpm. QTc 431 ms. Senior Fire Protection Engineer is consulted. 2D echo ordered. Patient started on IV heparin drip with bolus. At home patient is on aspirin, Plavix, isosorbide mononitrate, and rosuvastatin continued. Patient not on beta-tanner, SHAR or ARB probably due to severe COPD and kidney failure. 4. Possible COPD exacerbation: Patient has history of COPD, right lower lobectomy seems for benign coverage. On IV Solu-Medrol and bronchodilator, Mucinex, incentive spirometry and Pep ordered. 5. Colon cancer status post subtotal colectomy: Usually patient has loose bowel movement and takes Imodium. 6. ESKD on hemodialysis. Analytical Lab Analyst Dr. Magana is consulted. Discussed with her. 7. Type 2 DM: Glucose 299 BMP. Accu-Chek H&H's coverage Humalog sliding scale. Started on Lantus 20 units daily. 8. Hypothyroidism, continue on Synthroid. TSH tomorrow a.m. 9. DVT PPx- on heparin drip Living will/advanced directive/end of life care: Patient does have living will or advanced directive. His son is power of commercial attorney for health. After discussion of benefits/risks procedures involved with full code, DNR CC arrest and DNR CC, the patient and his sister near the bedside, they opted for DNRCC arrest with no intubation. Patient doesn't want artificial life support including intubation, tube feed, ventilator and/chest compression, central venous catheter, vasopressor and DC shock if needed Total time spent in [id number] encounter in discussion of advanced directive 16 minutes. Microbiology Past 72 Hours 04/29/22 08:14 Nasal Secretion SARS-CoV-2 & FLU Antigen (Rapid) - Final Laboratory Results 04/29/22 07:56: WBC 16.0 H, RBC 2.87 L, Hgb 8.3 L, Hct 28.4 L, MCV 99.0 H, MCH 28.9, MCHC 29.2 L, RDW Std Deviation 56.2 H, RDW Coeff of Joana 15.9 H, Plt Count 427, MPV 11.1, Immature Gran % (Auto) 1.600 H, Neut % (Auto) 73.8 H, Lymph % (Auto) 17.3 L, [place] % (Auto) 5.8, Eos % (Auto) 0.9, Baso % (Auto) 0.6, Absolute Neuts (auto) 11.8 H, Absolute Lymphs (auto) 2.76, Nucleated RBC % 0 04/29/22 07:56: Sodium 140, Potassium 4.9, Chloride 105, Carbon Dioxide 25.0, Anion Gap 10, BUN 61 H, Creatinine 5.68 H, Estim Creat Clear Calc 13.44, Est GFR (MDRD) Af Amer 13 L, Est GFR (MDRD) Non-Af 11 L, BUN/Creatinine Ratio 10.7, Glucose 299 H, Calcium 9.1, Troponin I High Sens 269 H* 04/29/22 07:56: Lactic Acid 3.4 H* 04/29/22 07:56: Phosphorus 5.4 H, Magnesium 2.1 04/29/22 08:04: Specimen Type SHERI, VBG pH 7.23 L, VBG pO2 48 H, VBG HCO3 25, VBG Total CO2 27, VBG O2 Sat (Calc) 75 H, VBG Base Excess -3 L, POC Mix VBG pCO2 Pt Tmp 59.1 H 04/29/22 09:45: PT 13.4, INR 1.1, APTT 33.9 04/29/22 11:45: Troponin I High Sens 527 H* Clinical Impression(s) from Imaging Studies Chest X-Ray 04/29/22 08:35 IMPRESSION: Progressive bibasilar infiltrates worse on the left lung base with blunting of both gastric angles. Progressive increase in size of the nodular density in the right upper lobe. Persistent volume loss in the upper medial aspect of the right upper lobe with the displacement of the trachea to the right side of the midline. Charges/Coding Visit Charges Inpatient E&M: 99015 Init Hosp L3 Procedures Hospitalists Procedures: 16158 Advncd Care Plan 30 Min
--- NOTE | 2022-04-29 12:30 | PCM.RX.CS ---
Consult Pharmacy has been consulted to manage selected antiobiotic: Vancomycin Type of Consult: New start Prior Doses of Antibiotics Received/Current Regimen: Medications Vancomycin HCl 1,250 mg/ (Sodium Chloride) 275 mls @ 167 mls/hr IV X1 ONE Stop: 04/29/22 12:38 Labs: Sodium 140 mmol/L (136-145) 04/29/22 07:56 Potassium 4.9 mmol/L (3.5-5.1) 04/29/22 07:56 Chloride 105 mmol/L (98-107) 04/29/22 07:56 Carbon Dioxide 25.0 mmol/L (21.0-32.0) 04/29/22 07:56 Anion Gap 10 (5-15) 04/29/22 07:56 BUN 61 mg/dL (7-18) H 04/29/22 07:56 Creatinine 5.68 mg/dL (0.70-1.30) H 04/29/22 07:56 Est GFR (MDRD) Af Amer 13 mL/min (>60) L 04/29/22 07:56 Est GFR (MDRD) Non-Af 11 mL/min (>60) L 04/29/22 07:56 BUN/Creatinine Ratio 10.7 RATIO (10-20) 04/29/22 07:56 Glucose 299 mg/dL (74-106) H 04/29/22 07:56 Microbiology: Microbiology 04/29/22 08:14 Nasal Secretion SARS-CoV-2 & FLU Antigen (Rapid) - Final Weight used for dosin kg Estimated Creatinine Clearance: Dialysis Goal Trough: 15-20 mcg/mL Pharmacy Plan for Drug Dosing: MWF dialysis patient received 1250mg x1, will re-check level prior to next dialysis session for further dosing. Pharmacy Service will continue to monitor and adjust dosing as required. Follow-Up Labs: Trough Vancomycin - 2/15 @ 0600 Random
[2022-04-29 12:34] LABS: Troponin-I HS 527 pg/mL (3.0-78.0)
--- NOTE | 2022-04-29 12:42 | ECHOCS_ITS ---
Reason For Study: Dyspnea/SOB Procedure This was a 2D Doppler, Color Flow transthoracic echocardiogram. Contrast injection was performed. Exam performed portable in ICU/CCU. Left Ventricle Normal LV size. Left ventricular systolic function is lower limits of normal. The left ventricular ejection fraction is 50 %. [place] : Hypokinetic. Mid-Anterior : Mildly hypokinetic. Tricuspid Valve Normal tricuspid valve. Mild to moderate (1-2+) tricuspid valve insufficiency. Pulmonary artery systolic pressure is 47 mmHg. Aortic Valve Trisinus/trileaflet aortic valve. Great Vessels Normal aortic root. The pulmonary artery is normal size. Normal inferior vena cava. Pericardium/Pleural No pericardial effusion. Medication Diluted definity 2ml given slow IV push to enhance endocardial definition. MMode/2D Measurements & Calculations LVIDd: 5.8 cm IVSd: 1.3 cm Ao root diam: 2.8 cm LVIDs: 4.4 cm LVPWd: 1.4 cm FS: 24.0 % LAV(MOD-bp): 51.1 ml SV(MOD-sp4): 64.1 ml LVAd ap4: 44.3 cm2 LAV(MOD-bp) Indexed: 24.1 ml/m2 LVLd ap4: 9.5 cm LAV(MOD-sp2): 62.8 ml EDV(MOD-sp4): 169.2 ml LAV(MOD-sp4): 41.2 ml EDV(sp4-el): 174.7 ml LVAs ap4: 33.1 cm2 LVLs ap4: 8.6 cm ESV(MOD-sp4): 105.1 ml ESV(sp4-el): 108.1 ml EF(MOD-sp4): 37.9 % EF(sp4-el): 38.1 % SV(sp4-el): 66.6 ml LA dimension(2D): 4.0 cm LA A4 area: 17.1 cm2 RA A4 area: 15.5 cm2 Time Measurements MV dec time: 0.12 sec Doppler Measurements & Calculations MV E max jaun: 100.1 cm/sec Lat Peak E' Jaun: 10.9 cm/sec Med Peak E' Jaun: 8.6 cm/sec MV A max jaun: 125.0 cm/sec E/E' lat: 9.2 E/E' med: 11.6 MV E/A: 0.80 MV V2 max: 132.2 cm/sec Ao V2 max: 150.3 cm/sec MV max P.0 mmHg MV dec slope: 805.5 cm/sec2 Ao max P.0 mmHg MV V2 mean: 93.2 cm/sec Ao V2 mean: 105.3 cm/sec MV mean P.8 mmHg Ao mean P.8 mmHg MV V2 VTI: 31.9 cm Ao V2 VTI: 29.6 cm LV V1 max: 128.8 cm/sec PA V2 max: 80.3 cm/sec TR max jaun: 329.2 cm/sec LV V1 max P.6 mmHg TR max P.3 mmHg ECHO/Echo Complete W/ Contrast Interpretation Summary Normal LV size. Left ventricular systolic function is lower limits of normal. The left ventricular ejection fraction is 50 %. Pulmonary artery systolic pressure is 47 mmHg. Contrast injection was performed. Ordering Physician: Jos Marion Referring Physician: Jonathan Baptiste Performed By: Clara Coronado, RAFAEL, RVT
[2022-04-29] MEDS: Heparin Injection (Vial) 5,000 UNIT/ML VIAL 4000 UNIT IV (13:18)
[2022-04-29] MEDS: HEPARIN/D5w 25,000 UNITS 25,000 UNITS/250 ML IV.SOLN. 10 UNITS CONT INF (13:21)
[2022-04-29 13:23] LABS: Reflex Lactate? Y
--- NOTE | 2022-04-29 13:38 | EX.PCM.CONCC ---
Assessment & Plan Assessment/Plan (1) Acute respiratory failure with hypoxia and hypercapnia: (2) Smoking 1/2 pack a day or less: (3) ESRD (end stage renal disease) on dialysis: (4) DM type 2 (diabetes mellitus, type 2): PLAN: Plan RECOMMENDATIONS: 1. Fluid removal with hemodialysis of possible 2. Reasonable to continue empiric antibiotics pending cultures 3. Likely discontinue steroids if remains stable for the next 24 hours 4. Outpatient low-dose CT scan 5. Await echocardiogram 6. Continue BiPAP with sleep IMPRESSIONS: 1. Acute on chronic combined respiratory failure/COPD Patient was significant acidosis on VBG on presentation. Unfortunately, ABG was not obtained so hypercarbia is unclear. Patient did respond well to BiPAP therapy and given the rapidity of resolution, fluid overload would be suggested. Patient did report a salt intake overnight. Patient did have a leukocytosis this morning. Unclear if this is related to an acute infectious etiology versus endogenous steroid release with hypoxia. It would be unlikely for pneumonia to respond so rapidly to BiPAP therapy as patient is currently on minimal nasal cannula oxygen. Would recommend BiPAP with sleep. Echocardiogram to evaluate for CHF is currently pending. If patient continues to be stable on minimal nasal cannula oxygen, will likely DC steroids tomorrow. 2. History of colon cancer/right lobectomy Patient with minimal pleural effusions noted on chest x-ray. Patient may have a nodule in the right upper lobe, but this can be evaluated as an outpatient. Patient has had some marginal blood pressures, but this appears to be improving at this time. 3. ESRD/noncompliance with LADARIUS therapy/iron deficiency anemia/active tobacco abuse Complicates care, management, recovery and prognosis. Nephrology has been consulted. Defer to them on hemodialysis timing. Okay to continue with baseline medications. Patient would benefit from nocturnal BiPAP given highly variable clinical course. Ideally, this would be continued on discharge, but doubt patient will be agreeable. HPI Consult Data Date of Consult: 04/29/22 HPI Narrative Reason for Consultation: Acute hypoxic respiratory failure HPI Narrative: BARI KELLY is a 66 M, with past medical history listed below, who presents to [facility] on 04/29/2022 after complaining of respiratory distress leading to an EMS call. Patient reportedly was immediately placed on CPAP therapy when he was found to have a pulse ox in the 70s. Patient was given a breathing treatment initially and saturations dropped into the 60s leading to his CPAP initiation. Patient reportedly had been of his usual health yesterday, but then became extremely short of breath with waking this morning. Patient denied any cough, fever, chills, chest pain or lower extremity swelling. Patient does have a history of COPD and was recently discharged from the hospital on supplemental oxygen. Patient is a dialysis patient and reportedly has not missed any recent sessions. In the ER, patient was afebrile, but tachycardic at 121 bpm. Patient was noted to be tachypneic at 29 breaths/min and blood pressure was adequate. Patient was saturating 100% on BiPAP therapy. Patient did have some episodes of hypotension, but was able to come off of BiPAP therapy with improvement in blood pressures. Laboratory data showed a white blood cell count of 16, hemoglobin of 8.3 and a bicarbonate of 25. Lactic was elevated at 3.4 and troponin was 269. Coagulation studies were within normal limits. A VBG did show acidosis with a pH of 7.23. Chest x-ray showed progressive infiltrates bilaterally and EKG noted sinus tachycardia. ER events were reviewed and patient was fluid responsive. Given patient's hypotension and variable oxygenation status, patient was admitted to the intensive care unit for further evaluation. Since being in the intensive care unit, patient has not required recurrent BiPAP therapy. Patient states he feels 100% better. Patient denies any current chest pain, abdominal pain, nausea or vomiting. On further questioning, patient does report that he had a Super [employer] green party overnight with Coney dogs and chips. Patient was less forthcoming with his drinking overnight. Patient states his cough is producing his usual white to pale yellow sputum. Patient is not reporting any hemoptysis. Patient does state that he tends to wear his oxygen only as needed, but does state that he wore it overnight with sleep. Review of systems otherwise negative from a constitutional, HEENT, respiratory, cardiovascular, GI, genitourinary, musculoskeletal, skin, neurologic, psychiatric and hematologic system unless stated above. [facility] Medical History Acute exacerbation of chronic obstructive pulmonary disease (COPD) Acute HFrEF (heart failure with reduced ejection fraction) Acute renal failure superimposed on stage 4 chronic kidney disease Acute respiratory failure with hypoxemia Anemia of chronic renal failure Anxiety Atherosclerosis of coronary artery of [place] heart without angina pectoris Back pain C. difficile colitis Cancer Cardiology follow-up encounter Cholelithiasis Chronic renal failure, stage 4 (severe) Colon cancer COPD (chronic obstructive pulmonary disease) CPAP (continuous positive airway pressure) dependence Depression DM type 2 causing CKD stage 4 Elevated troponin Essential (primary) hypertension Former smoker Gastric reflux Gastroenteritis Gout Heme + stool Hemorrhoids High cholesterol History of echocardiogram History of GI bleed History of IBS Hyperkalemia, diminished renal excretion Hyperlipidemia Hypertension Hyponatremia Hypotension, unspecified Increased PTH level Infectious encephalopathy Influenza B Injury of head and neck Insulin dependent diabetes mellitus Iron deficiency anemia Ischemic cardiomyopathy Low vitamin D level Lower GI bleed Metabolic acidosis Myocardial infarct Nocturnal hypoxia Non-STEMI (non-ST elevated myocardial infarction) Noncompliance with CPAP treatment NSAID long-term use NSTEMI (non-ST elevated myocardial infarction) (07/2018) NSVT (nonsustained ventricular tachycardia) On home oxygen therapy LADARIUS (obstructive sleep apnea) Paroxysmal atrial fibrillation Peripheral vascular disease Pseudomembranous enterocolitis Radiculopathy affecting upper extremity Septic shock Severe sepsis Shortness of breath on exertion Skin tear Sleep apnea Stage 3 severe COPD by GOLD classification Streptococcal pneumonia Uremia of renal origin Urinary retention due to benign prostatic hyperplasia Wears dentures Home Medications nitroglycerin 0.4 mg sublingual tablet 0.4 mg sublingual Q5M PRN Chest Pain 05/14/17 [History Last Taken Unknown] oxycodone 5 mg tablet 5 mg PO BID PRN PRN Pain 05/14/17 [History Last Taken 04/28/22] finasteride 5 mg tablet 5 mg PO DAILY prostate 09/15/17 [History Last Taken 04/28/22] isosorbide mononitrate 30 mg tablet,extended release 24 hr 15 mg PO DAILY heart 09/15/17 [History Last Taken 04/28/22] diazepam 5 mg tablet 5 - 10 mg PO BID PRN anxiety 05/12/18 [History Last Taken 04/29/22] cilostazol 100 mg tablet 100 mg PO QHS cirrulation 09/30/19 [History Last Taken 04/28/22] escitalopram oxalate 20 mg tablet (Lexapro) 20 mg PO DAILY depression 09/30/19 [History Last Taken 04/28/22] ipratropium 0.5 mg-albuterol 3 mg (2.5 mg base)/3 mL nebulization soln 3 ml inhalation Q4H PRN shortness of breath or wheezing 09/30/19 [History Last Taken 04/28/22] levothyroxine 88 mcg tablet 88 mcg PO DAILY thyroid 12/07/19 [History Last Taken 04/28/22] umeclidinium 62.5 mcg-vilanterol 25 mcg/actuation powdr for inhalation (Anoro Ellipta) 1 inh inhalation Q24H breathing 08/31/20 [History Last Taken 04/28/22] albuterol sulfate 90 mcg/actuation aerosol inhaler 2 puff inhalation 4X/DAY breathing 04/28/21 [History Last Taken 04/29/22] aspirin 81 mg tablet,delayed release 81 mg PO DAILY heart health 04/28/21 [History Last Taken 04/28/22] cholecalciferol (vitamin D3) 50 mcg (2,000 unit) capsule (Vitamin D3) 2,000 unit PO DAILY vitamin 04/28/21 [History Last Taken 04/28/22] ferrous sulfate 325 mg (65 mg iron) tablet,delayed release 325 mg PO DAILY supplement 04/28/21 [History Last Taken 04/28/22] loperamide 2 mg capsule 2 mg PO Q4H PRN PRN Constipation 04/28/21 [History Last Taken 04/26/22] rosuvastatin 10 mg tablet 10 mg PO DAILY cholesterol 04/28/21 [History Last Taken 04/28/22] clopidogrel 75 mg tablet 75 mg PO DAILY HEART 04/01/22 [History Last Taken 04/28/22] insulin degludec 100 unit/mL (3 mL) subcutaneous pen (Tresiba FlexTouch U-100 insulin) 20 - 25 unit subcut BID diabetes 04/01/22 [History Last Taken 04/29/22] insulin lispro 100 unit/mL subcutaneous pen See Rx Instructions .Route .COMPLEX DM 04/01/22 [History Last Taken 04/29/22] Allergy/AdvReac Type Severity Reaction Status Date / Time No Known Allergies Allergy Verified 04/29/22 07:58 Family History Father Leukemia Mother COPD (chronic obstructive pulmonary disease) Surgical History H/O colectomy H/O pneumonectomy History of coronary artery stent placement (02/28/21) History of esophagogastroduodenoscopy (EGD) History of left heart catheterization (02/27/21) Hx of craniotomy S/P arteriovenous (AV) fistula creation Status post colon resection Status post insertion of dialysis catheter (07/2018) Social History household members: spouse housing: other details: mobile home current occupational status: disabled pets and animals: Yes pets and animals: dog(s) Smoking Status: Current every day smoker tobacco type: cigarettes Tobacco: How many years used: 40 second hand exposure: No alcohol intake: never substance use type: does not use ROS ROS Narrative See HPI Physical Exam Const alert, oriented x3 and no apparent distress Constitutional Narrative: On nasal cannula with no conversational dyspnea. Appears older than stated age. General Appearance: cooperative and well developed HEENT normocephalic, head/scalp atraumatic and moist oral mucous membranes Eyes PERRL and EOMs intact bilaterally Neck full ROM and no lymphadenopathy Neck Narrative: Right JVD noted Chest inspection of chest normal Resp normal respiratory effort and no use of accessory muscles Effort and Inspection: able to speak in complete sentences Auscultation: diminished lung sounds; Negative for rales, rhonchi or wheezes Percussion: Negative for dullness Cardio regular rate, regular rhythm, S1 normal heart sound, S2 normal heart sound, no murmurs, no rub and no gallops GI normal to inspection, nondistended, normoactive bowel sounds GI Narrative: Midline abdominal scar. Narrative: No suprapubic tenderness Extremity no clubbing, cyanosis or edema Skin no rashes or lesions noted Neuro oriented x3, CN's II-XII intact bilaterally, moves all extremities and no focal motor deficits Psych cooperative and affect normal Lab / Micro Data Result Diagrams: 04/29/22 07:56 04/29/22 07:56 Labs: Laboratory Results - last 24 hr 04/29/22 07:56: WBC 16.0 H, RBC 2.87 L, Hgb 8.3 L, Hct 28.4 L, MCV 99.0 H, MCH 28.9, MCHC 29.2 L, RDW Std Deviation 56.2 H, RDW Coeff of Joana 15.9 H, Plt Count 427, MPV 11.1, Immature Gran % (Auto) 1.600 H, Neut % (Auto) 73.8 H, Lymph % (Auto) 17.3 L, [place] % (Auto) 5.8, Eos % (Auto) 0.9, Baso % (Auto) 0.6, Absolute Neuts (auto) 11.8 H, Absolute Lymphs (auto) 2.76, Nucleated RBC % 0 04/29/22 07:56: Sodium 140, Potassium 4.9, Chloride 105, Carbon Dioxide 25.0, Anion Gap 10, BUN 61 H, Creatinine 5.68 H, Estim Creat Clear Calc 13.44, Est GFR (MDRD) Af Amer 13 L, Est GFR (MDRD) Non-Af 11 L, BUN/Creatinine Ratio 10.7, Glucose 299 H, Calcium 9.1, Troponin I High Sens 269 H* 04/29/22 07:56: Lactic Acid 3.4 H* 04/29/22 07:56: Phosphorus 5.4 H, Magnesium 2.1 04/29/22 09:45: PT 13.4, INR 1.1, APTT 33.9 04/29/22 11:45: Troponin I High Sens 527 H* Micro: Microbiology 04/29/22 08:14 Nasal Secretion SARS-CoV-2 & FLU Antigen (Rapid) - Final ABG Data ABG results: ABG 04/29/22 08:04 Specimen Type SHERI VBG pH 7.23 L VBG pO2 48 H VBG HCO3 25 VBG Total CO2 27 VBG O2 Sat (Calc) 75 H VBG Base Excess -3 L POC Mix VBG pCO2 Pt Tmp 59.1 H Rhythm Strip Rhythm Strip: Sinus Tach Rate: 120 Ectopy: None Radiology Impression Chest X-Ray 04/29/22 08:35 IMPRESSION: Progressive bibasilar infiltrates worse on the left lung base with blunting of both gastric angles. Progressive increase in size of the nodular density in the right upper lobe. Persistent volume loss in the upper medial aspect of the right upper lobe with the displacement of the trachea to the right side of the midline. Electronically Signed: Herbert Carroll MD at 9:00 EST , Charges/Coding Visit Charges Inpatient E&M: 25403 Init Hosp L3
[2022-04-29 13:48] LABS: Troponin-I HS 673 pg/mL (3.0-78.0)
[2022-04-29] MEDS: Ipratropium/Albuterol Sulfate 3 ML AMPUL.NEB INHALATION ×2 (13:59→18:50)
--- NOTE | 2022-04-29 14:15 | CT_ITS ---
STUDY: CTA CHEST REASON FOR EXAM: Male, 66 years old. SOB, SUSPECTED PE RADIATION DOSAGE (If Supplied By Facility): CTDIvol = ( 17.11 ) mGy, DLP = ( 521.56 ) mGycm TECHNIQUE: The examination was performed with the intravenous administration of IV 100mL Isovue-370. Post-processing of the angiographic images was performed, with multiplanar reformation and 3D reconstruction. Individualized dose optimization techniques were used for this CT. COMPARISON: Comparison is made with prior chest radiograph done earlier today. FINDINGS: Normal enhancement of the main pulmonary artery and right and left pulmonary arteries. Normal enhancement of the bilateral peripheral pulmonary arteries. There is no demonstrated pulmonary embolism. Normal thoracic aorta and visualized great vessels. There is no demonstrated aortic dissection. There are calcifications of the coronary arteries. Enlarged mediastinal lymph nodes. Mild enlargement of the right hilar lymph nodes. Normal visualized trachea and bronchi. Volume loss in the right hemithorax. There is evidence of emphysematous changes. Heterogeneous infiltrate in the right upper lobe and right lung apex suggestive of a scarring and bullous changes. There is also evidence of scarring in the anterior aspect of the right upper lobe as well as right middle lobes. Moderate-sized bulla in the medial upper aspect of the right upper lobe. There is also evidence of patchy infiltrates at both lung bases worse on the right side with evidence of scarring. There is also evidence of focal infiltrate in the left upper lobe. Normal pleura. Normal chest wall structures. There are degenerative changes of thoracic spine. Normal visualized upper abdomen. CT/CTA Chest W/WO Contrast IMPRESSION: No evidence of pulmonary embolism. Patchy infiltrates as described with volume loss in the right upper lobe suggestive of scarring. Mediastinal lymphadenopathy. Electronically Signed: Herbert Carroll MD at 14:39 EST ,
--- NOTE | 2022-04-29 14:25 | PCM.CONS.R ---
Assessment & Plan Assessment/Plan (1) ESRD (end stage renal disease) on dialysis: PLAN: Dialysis today and Fridays (2) DM type 2 (diabetes mellitus, type 2): (3) Acute respiratory failure with hypoxia and hypercapnia: PLAN: oxygenation stable. CT angiogram pending report. (4) Hypotension: PLAN: Resolved (5) Lactic acidosis: (6) COPD (chronic obstructive pulmonary disease): (7) Nicotine dependence, cigarettes, uncomplicated: (8) Elevated troponin: PLAN: History of CAD status post stent. Cardiology consulted HPI Consult Data Date of Consult: 04/29/22 HPI Narrative Reason for Consultation: ESRD HD MWF HPI Narrative: BARI KELLY, is a 66 M well-known to me with ESRD due to diabetes on hemodialysis Friday, Friday, Friday presents to ER this morning for sudden onset shortness of breath with diaphoresis. Denied any chest pain, cough, nausea or vomiting. He felt fine last night and was getting ready for dialysis this morning when he developed sudden onset of shortness of breath. He was alone at home when he called 911. He took diazepam and gave himself an aerosol treatment and put on his oxygen at home that did not help improve his shortness of breath. He has a history of CAD, COPD. He has a history of tobacco use but does not smoke anymore. He is due for his hemodialysis today and arrangements are made to receive treatment in intensive care unit today. [facility] Medical History Acute exacerbation of chronic obstructive pulmonary disease (COPD) Acute HFrEF (heart failure with reduced ejection fraction) Acute renal failure superimposed on stage 4 chronic kidney disease Acute respiratory failure with hypoxemia Anemia of chronic renal failure Anxiety Atherosclerosis of coronary artery of [place] heart without angina pectoris Back pain C. difficile colitis Cancer Cardiology follow-up encounter Cholelithiasis Chronic renal failure, stage 4 (severe) Colon cancer COPD (chronic obstructive pulmonary disease) CPAP (continuous positive airway pressure) dependence Depression DM type 2 causing CKD stage 4 Elevated troponin Essential (primary) hypertension Former smoker Gastric reflux Gastroenteritis Gout Heme + stool Hemorrhoids High cholesterol History of echocardiogram History of GI bleed History of IBS Hyperkalemia, diminished renal excretion Hyperlipidemia Hypertension Hyponatremia Hypotension, unspecified Increased PTH level Infectious encephalopathy Influenza B Injury of head and neck Insulin dependent diabetes mellitus Iron deficiency anemia Ischemic cardiomyopathy Low vitamin D level Lower GI bleed Metabolic acidosis Myocardial infarct Nocturnal hypoxia Non-STEMI (non-ST elevated myocardial infarction) Noncompliance with CPAP treatment NSAID long-term use NSTEMI (non-ST elevated myocardial infarction) (07/2018) NSVT (nonsustained ventricular tachycardia) On home oxygen therapy LADARIUS (obstructive sleep apnea) Paroxysmal atrial fibrillation Peripheral vascular disease Pseudomembranous enterocolitis Radiculopathy affecting upper extremity Septic shock Severe sepsis Shortness of breath on exertion Skin tear Sleep apnea Stage 3 severe COPD by GOLD classification Streptococcal pneumonia Uremia of renal origin Urinary retention due to benign prostatic hyperplasia Wears dentures Home Medications nitroglycerin 0.4 mg sublingual tablet 0.4 mg sublingual Q5M PRN Chest Pain 05/14/17 [History Last Taken Unknown] oxycodone 5 mg tablet 5 mg PO BID PRN PRN Pain 05/14/17 [History Last Taken 04/28/22] finasteride 5 mg tablet 5 mg PO DAILY prostate 09/15/17 [History Last Taken 04/28/22] isosorbide mononitrate 30 mg tablet,extended release 24 hr 15 mg PO DAILY heart 09/15/17 [History Last Taken 04/28/22] diazepam 5 mg tablet 5 - 10 mg PO BID PRN anxiety 05/12/18 [History Last Taken 04/29/22] cilostazol 100 mg tablet 100 mg PO QHS cirrulation 09/30/19 [History Last Taken 04/28/22] escitalopram oxalate 20 mg tablet (Lexapro) 20 mg PO DAILY depression 09/30/19 [History Last Taken 04/28/22] ipratropium 0.5 mg-albuterol 3 mg (2.5 mg base)/3 mL nebulization soln 3 ml inhalation Q4H PRN shortness of breath or wheezing 09/30/19 [History Last Taken 04/28/22] levothyroxine 88 mcg tablet 88 mcg PO DAILY thyroid 12/07/19 [History Last Taken 04/28/22] umeclidinium 62.5 mcg-vilanterol 25 mcg/actuation powdr for inhalation (Anoro Ellipta) 1 inh inhalation Q24H breathing 08/31/20 [History Last Taken 04/28/22] albuterol sulfate 90 mcg/actuation aerosol inhaler 2 puff inhalation 4X/DAY breathing 04/28/21 [History Last Taken 04/29/22] aspirin 81 mg tablet,delayed release 81 mg PO DAILY heart health 04/28/21 [History Last Taken 04/28/22] cholecalciferol (vitamin D3) 50 mcg (2,000 unit) capsule (Vitamin D3) 2,000 unit PO DAILY vitamin 04/28/21 [History Last Taken 04/28/22] ferrous sulfate 325 mg (65 mg iron) tablet,delayed release 325 mg PO DAILY supplement 04/28/21 [History Last Taken 04/28/22] loperamide 2 mg capsule 2 mg PO Q4H PRN PRN Constipation 04/28/21 [History Last Taken 04/26/22] rosuvastatin 10 mg tablet 10 mg PO DAILY cholesterol 04/28/21 [History Last Taken 04/28/22] clopidogrel 75 mg tablet 75 mg PO DAILY HEART 04/01/22 [History Last Taken 04/28/22] insulin degludec 100 unit/mL (3 mL) subcutaneous pen (Tresiba FlexTouch U-100 insulin) 20 - 25 unit subcut BID diabetes 04/01/22 [History Last Taken 04/29/22] insulin lispro 100 unit/mL subcutaneous pen See Rx Instructions .Route .COMPLEX DM 04/01/22 [History Last Taken 04/29/22] Allergy/AdvReac Type Severity Reaction Status Date / Time No Known Allergies Allergy Verified 04/29/22 07:58 Family History Father Leukemia Mother COPD (chronic obstructive pulmonary disease) Surgical History H/O colectomy H/O pneumonectomy History of coronary artery stent placement (02/28/21) History of esophagogastroduodenoscopy (EGD) History of left heart catheterization (02/27/21) Hx of craniotomy S/P arteriovenous (AV) fistula creation Status post colon resection Status post insertion of dialysis catheter (07/2018) Social History household members: spouse housing: other details: mobile home current occupational status: disabled pets and animals: Yes pets and animals: dog(s) Smoking Status: Current every day smoker tobacco type: cigarettes Tobacco: How many years used: 40 second hand exposure: No alcohol intake: never substance use type: does not use ROS Constitutional Constitutional: Denies chills, fever(s) or weakness Eyes Eyes: Denies loss of vision ENT HEENT: Denies nasal congestion Cardiovascular Cardiovascular: Reports dyspnea on exertion; Denies chest pain, edema or syncope Respiratory/Chest Respiratory/Chest: Reports dyspnea on exertion, portable oxygen @ home and shortness of breath at rest; Denies productive cough Gastrointestinal Gastrointestinal: Denies abdominal pain, anorexia, diarrhea, dry heaves or vomiting Genitourinary Genitourinary: Reports oliguria Integumentary Integumentary: Denies rash Neurologic Neurologic: Denies focal weakness or weakness Hematologic/Lymphatic Hematologic/Lymphatic: Denies easy bruising Physical Exam Const alert and oriented x3 Resp clear to auscultation bilaterally Cardio regular rate GI non-tender and non-distended Auscultation: normoactive bowel sounds Palpation: soft Extremity General Extremity: AV fistula Neuro CN's II-XII intact bilaterally Sensorium / Orientation: awake and alert Psych Mood & Affect: anxious Lab / Micro Data Result Diagrams: 04/29/22 07:56 04/29/22 07:56 Labs: Laboratory Results - last 24 hr 04/29/22 07:56: WBC 16.0 H, RBC 2.87 L, Hgb 8.3 L, Hct 28.4 L, MCV 99.0 H, MCH 28.9, MCHC 29.2 L, RDW Std Deviation 56.2 H, RDW Coeff of Joana 15.9 H, Plt Count 427, MPV 11.1, Immature Gran % (Auto) 1.600 H, Neut % (Auto) 73.8 H, Lymph % (Auto) 17.3 L, [place] % (Auto) 5.8, Eos % (Auto) 0.9, Baso % (Auto) 0.6, Absolute Neuts (auto) 11.8 H, Absolute Lymphs (auto) 2.76, Nucleated RBC % 0 04/29/22 07:56: Sodium 140, Potassium 4.9, Chloride 105, Carbon Dioxide 25.0, Anion Gap 10, BUN 61 H, Creatinine 5.68 H, Estim Creat Clear Calc 13.44, Est GFR (MDRD) Af Amer 13 L, Est GFR (MDRD) Non-Af 11 L, BUN/Creatinine Ratio 10.7, Glucose 299 H, Calcium 9.1, Troponin I High Sens 269 H* 04/29/22 07:56: Lactic Acid 3.4 H* 04/29/22 07:56: Phosphorus 5.4 H, Magnesium 2.1 04/29/22 09:45: PT 13.4, INR 1.1, APTT 33.9 04/29/22 11:45: Troponin I High Sens 527 H* 04/29/22 13:15: Troponin I High Sens 673 H* Micro: Microbiology 04/29/22 08:14 Nasal Secretion SARS-CoV-2 & FLU Antigen (Rapid) - Final ABG Data ABG results: ABG 04/29/22 08:04 Specimen Type SHERI VBG pH 7.23 L VBG pO2 48 H VBG HCO3 25 VBG Total CO2 27 VBG O2 Sat (Calc) 75 H VBG Base Excess -3 L POC Mix VBG pCO2 Pt Tmp 59.1 H Rhythm Strip Rhythm Strip: Sinus Tach Rate: 120 Ectopy: None Radiology Impression Chest X-Ray 04/29/22 08:35 IMPRESSION: Progressive bibasilar infiltrates worse on the left lung base with blunting of both gastric angles. Progressive increase in size of the nodular density in the right upper lobe. Persistent volume loss in the upper medial aspect of the right upper lobe with the displacement of the trachea to the right side of the midline. Electronically Signed: Herbert Carroll MD at 9:00 EST ,
[2022-04-29 14:35] LABS: Lactic Acid 1.6 mmol/L (0.4-1.9)
[2022-04-29] MEDS: Aspirin E.C. 81 MG Tablet PO (15:50)
[2022-04-29] MEDS: Pantoprazole Sodium 40 MG Tablet PO (15:50)
[2022-04-29 16:15] LABS: Bedside Glucose 106 mg/dL (74-106)
[2022-04-29 17:48] LABS: Troponin-I HS 928 pg/mL (3.0-78.0)
--- NOTE | 2022-04-29 18:09 | CON.PCM.CA_ITS ---
Assessment & Plan Assessment/Plan (1) NSTEMI (non-ST elevation myocardial infarction): PLAN: He presents with shortness of breath and is noted to have a non-ST elevation myocardial infarction. He does have evidence of triple-vessel disease for which she has undergone multivessel angioplasty. My recommendation would be to see how he does with dialysis and consider a limited cardiac catheterization with possible intervention. The timing of the above will need to be discussed. (2) Ischemic cardiomyopathy: PLAN: He does have evidence of ischemic cardiomyopathy and probable mild heart failure. I will recommend that he continue with his dialysis at this particular time. Pending on his clinical course further recommendations will be made. HPI Consult Data Date of Consult: 04/29/22 HPI Narrative HPI Narrative: BARI KELLY, is a 66 M who presents to the emergency room with shortness of breath which apparently started post [employer] party. He does have history of known coronary artery disease status post previous cardiac catheterization demonstrating the following: Normal left main coronary artery. Left anterior descending artery previously stented with 95% proximal stenosis noted and diffuse 70% stenosis noted in the stent First diagonal vessel which appears to be stented with subtotal occlusion Dominant left circumflex artery with proximal 50%, first obtuse marginal branch with proximal 50% and mid to distal 85% Mid circumflex artery in the AV groove segment with 95% stenosis feeding distal posterior lateral and posterior descending arteries Nondominant right coronary artery with 99% proximal stenosis He underwent multivessel angioplasty successfully. This was done of the proximal and mid left anterior descending artery as well as the first obtuse marginal branch in the mid left circumflex artery and the distal circumflex artery. Due to his impairment in renal function he has been undergoing dialysis now. He denies any chest pain or paroxysmal nocturnal dyspnea but he does have shortness of breath at rest. His other history significant for hypertension, peripheral vascular disease, paroxysmal atrial fibrillation. At this particular time he is not having any chest discomfort. Cardiac enzymes which were obtained demonstrated elevated levels and cardiology was called for further evaluation and management. A primary echocardiogram had demonstrated unchanged ejection fraction estimated at 50%. [facility] Medical History Acute exacerbation of chronic obstructive pulmonary disease (COPD) Acute HFrEF (heart failure with reduced ejection fraction) Acute renal failure superimposed on stage 4 chronic kidney disease Acute respiratory failure with hypoxemia Anemia of chronic renal failure Anxiety Atherosclerosis of coronary artery of [place] heart without angina pectoris Back pain C. difficile colitis Cancer Cardiology follow-up encounter Cholelithiasis Chronic renal failure, stage 4 (severe) Colon cancer COPD (chronic obstructive pulmonary disease) CPAP (continuous positive airway pressure) dependence Depression DM type 2 causing CKD stage 4 Elevated troponin Essential (primary) hypertension Former smoker Gastric reflux Gastroenteritis Gout Heme + stool Hemorrhoids High cholesterol History of echocardiogram History of GI bleed History of IBS Hyperkalemia, diminished renal excretion Hyperlipidemia Hypertension Hyponatremia Hypotension, unspecified Increased PTH level Infectious encephalopathy Influenza B Injury of head and neck Insulin dependent diabetes mellitus Iron deficiency anemia Ischemic cardiomyopathy Low vitamin D level Lower GI bleed Metabolic acidosis Myocardial infarct Nocturnal hypoxia Non-STEMI (non-ST elevated myocardial infarction) Noncompliance with CPAP treatment NSAID long-term use NSTEMI (non-ST elevated myocardial infarction) (07/2018) NSVT (nonsustained ventricular tachycardia) On home oxygen therapy LADARIUS (obstructive sleep apnea) Paroxysmal atrial fibrillation Peripheral vascular disease Pseudomembranous enterocolitis Radiculopathy affecting upper extremity Septic shock Severe sepsis Shortness of breath on exertion Skin tear Sleep apnea Stage 3 severe COPD by GOLD classification Streptococcal pneumonia Uremia of renal origin Urinary retention due to benign prostatic hyperplasia Wears dentures Home Medications nitroglycerin 0.4 mg sublingual tablet 0.4 mg sublingual Q5M PRN Chest Pain 05/14/17 [History Last Taken Unknown] oxycodone 5 mg tablet 5 mg PO BID PRN PRN Pain 05/14/17 [History Last Taken 04/28/22] finasteride 5 mg tablet 5 mg PO DAILY prostate 09/15/17 [History Last Taken 04/28/22] isosorbide mononitrate 30 mg tablet,extended release 24 hr 15 mg PO DAILY heart 09/15/17 [History Last Taken 04/28/22] diazepam 5 mg tablet 5 - 10 mg PO BID PRN anxiety 05/12/18 [History Last Taken 04/29/22] cilostazol 100 mg tablet 100 mg PO QHS cirrulation 09/30/19 [History Last Taken 04/28/22] escitalopram oxalate 20 mg tablet (Lexapro) 20 mg PO DAILY depression 09/30/19 [History Last Taken 04/28/22] ipratropium 0.5 mg-albuterol 3 mg (2.5 mg base)/3 mL nebulization soln 3 ml inhalation Q4H PRN shortness of breath or wheezing 09/30/19 [History Last Taken 04/28/22] levothyroxine 88 mcg tablet 88 mcg PO DAILY thyroid 12/07/19 [History Last Taken 04/28/22] umeclidinium 62.5 mcg-vilanterol 25 mcg/actuation powdr for inhalation (Anoro Ellipta) 1 inh inhalation Q24H breathing 08/31/20 [History Last Taken 04/28/22] albuterol sulfate 90 mcg/actuation aerosol inhaler 2 puff inhalation 4X/DAY breathing 04/28/21 [History Last Taken 04/29/22] aspirin 81 mg tablet,delayed release 81 mg PO DAILY heart health 04/28/21 [ History Last Taken 04/28/22] cholecalciferol (vitamin D3) 50 mcg (2,000 unit) capsule (Vitamin D3) 2,000 unit PO DAILY vitamin 04/28/21 [History Last Taken 04/28/22] ferrous sulfate 325 mg (65 mg iron) tablet,delayed release 325 mg PO DAILY supplement 04/28/21 [History Last Taken 04/28/22] loperamide 2 mg capsule 2 mg PO Q4H PRN PRN Constipation 04/28/21 [History Last Taken 04/26/22] rosuvastatin 10 mg tablet 10 mg PO DAILY cholesterol 04/28/21 [History Last Taken 04/28/22] clopidogrel 75 mg tablet 75 mg PO DAILY HEART 04/01/22 [History Last Taken 04/28/22] insulin degludec 100 unit/mL (3 mL) subcutaneous pen (Tresiba FlexTouch U-100 insulin) 20 - 25 unit subcut BID diabetes 04/01/22 [History Last Taken 04/29/22] insulin lispro 100 unit/mL subcutaneous pen See Rx Instructions .Route .COMPLEX DM 04/01/22 [History Last Taken 04/29/22] Allergy/AdvReac Type Severity Reaction Status Date / Time No Known Allergies Allergy Verified 04/29/22 07:58 Family History Father Leukemia Mother COPD (chronic obstructive pulmonary disease) Surgical History H/O colectomy H/O pneumonectomy History of coronary artery stent placement (02/28/21) History of esophagogastroduodenoscopy (EGD) History of left heart catheterization (02/27/21) Hx of craniotomy S/P arteriovenous (AV) fistula creation Status post colon resection Status post insertion of dialysis catheter (07/2018) Social History household members: spouse housing: other details: mobile home current occupational status: disabled pets and animals: Yes pets and animals: dog(s) Smoking Status: Current every day smoker tobacco type: cigarettes Tobacco: How many years used: 40 second hand exposure: No alcohol intake: never substance use type: does not use ROS Constitutional Constitutional: Denies fever(s) or weight loss Eyes Eyes: Reports systems reviewed and no addt'l complaints, except as documented ENT HEENT: Reports systems reviewed and no addt'l complaints, except as documented Cardiovascular Cardiovascular: Reports dyspnea at rest and dyspnea on exertion; Denies chest pain at rest, chest pain with activity, edema, palpitations or paroxysmal nocturnal dyspnea Respiratory/Chest Respiratory/Chest: Reports dyspnea on exertion, shortness of breath at rest and shortness of breath with exertion; Denies productive cough Gastrointestinal Gastrointestinal: Denies change in bowel habits, nausea, vomiting or weight changes Genitourinary Genitourinary: Denies difficulty urinating Musculoskeletal Musculoskeletal: Denies joint stiffness or muscle weakness Integumentary Integumentary: Denies lesions Neurologic Neurologic: Denies dizziness or syncope Psychiatric Psychiatric: Denies anxiety Endocrine Endocrinology: Denies excessive sweating or fatigue Hematologic/Lymphatic Hematologic/Lymphatic: Denies anemia Allergic/Immunologic Allergic/Immunologic: Denies seasonal rhinorrhea Physical Exam Const alert, oriented x3 and no apparent distress General Appearance: cooperative HEENT hearing grossly normal bilaterally Head and Scalp: atraumatic Eyes EOMs intact bilaterally Neck General: normal visual inspection Chest inspection of chest normal and palpation of chest normal Resp normal respiratory effort Auscultation: clear to auscultation bilaterally Cardio regular rate, regular rhythm, S1 normal heart sound and S2 normal heart sound Jugular Venous Distention: JVD GI normal to inspection, nondistended, normoactive bowel sounds Extremity normal capillary refill and no pedal edema Peripheral Pulses: Yes pulses 2+ throughout and femoral pulses present Skin no rashes or lesions noted Neuro oriented x3 and CN's II-XII intact bilaterally Psych Appearance: grossly normal and appropriate Risk Stratification Risk Stratification Applicable: No Objective Data Vital Signs: Vital Signs Temp Pulse Resp BP Pulse Ox O2 Del Method O2 Flow Rate 97.5 F L 101 H 16 116/76 92 Nasal Cannula 2 04/29/22 10:32 04/29/22 15:30 04/29/22 17:07 04/29/22 13:15 04/29/22 17:07 04/29/22 17:07 04/29/22 17:07 FiO2 25 04/29/22 08:57 Oxygen Flow Rate (L/min) 2 Oxygen Delivery Method Nasal Cannula Weight: 194 lb 3 oz Body Mass Index (BMI) 27.1 Intake & Output: Intake and Output for Last 24 Hours 04/27/22 04/28/22 04/29/22 23:59 23:59 23:59 Intake Total 350 / 350 Output Total 0 / 0 Balance 350 / 350 Lab / Micro Data Result Diagrams: 04/29/22 07:56 04/29/22 07:56 Labs: Laboratory Results - last 24 hr 04/29/22 07:56: WBC 16.0 H, RBC 2.87 L, Hgb 8.3 L, Hct 28.4 L, MCV 99.0 H, MCH 28.9, MCHC 29.2 L, RDW Std Deviation 56.2 H, RDW Coeff of Joana 15.9 H, Plt Count 427, MPV 11.1, Immature Gran % (Auto) 1.600 H, Neut % (Auto) 73.8 H, Lymph % (Auto) 17.3 L, [place] % (Auto) 5.8, Eos % (Auto) 0.9, Baso % (Auto) 0.6, Absolute Neuts (auto) 11.8 H, Absolute Lymphs (auto) 2.76, Nucleated RBC % 0 04/29/22 07:56: Sodium 140, Potassium 4.9, Chloride 105, Carbon Dioxide 25.0, Anion Gap 10, BUN 61 H, Creatinine 5.68 H, Estim Creat Clear Calc 13.44, Est GFR (MDRD) Af Amer 13 L, Est GFR (MDRD) Non-Af 11 L, BUN/Creatinine Ratio 10.7, Glucose 299 H, Calcium 9.1, Troponin I High Sens 269 H* 04/29/22 07:56: Lactic Acid 3.4 H* 04/29/22 07:56: Phosphorus 5.4 H, Magnesium 2.1 04/29/22 09:45: PT 13.4, INR 1.1, APTT 33.9 04/29/22 11:45: Troponin I High Sens 527 H* 04/29/22 13:15: Troponin I High Sens 673 H* 04/29/22 14:00: Lactic Acid 1.6 04/29/22 15:47: POC Glucose 106 04/29/22 17:20: Troponin I High Sens 928 H* 04/29/22 17:20: APTT 44.0 H Micro: Microbiology 04/29/22 11:28 Mucosa - Nasopharyngeal Respiratory Panel (PCR) - Final 04/29/22 08:14 Nasal Secretion SARS-CoV-2 & FLU Antigen (Rapid) - Final ABG Data ABG results: ABG 04/29/22 08:04 Specimen Type SHERI VBG pH 7.23 L VBG pO2 48 H VBG HCO3 25 VBG Total CO2 27 VBG O2 Sat (Calc) 75 H VBG Base Excess -3 L POC Mix VBG pCO2 Pt Tmp 59.1 H Rhythm Strip Rhythm Strip: Sinus Tach Rate: 120 Ectopy: None Cardiology Labs/Tests 04/29/22 07:56: WBC 16.0 H, RBC 2.87 L, Hgb 8.3 L, Hct 28.4 L, MCV 99.0 H, MCH 28.9, MCHC 29.2 L, Plt Count 427, MPV 11.1, Immature Gran % (Auto) 1.600 H, Neut % (Auto) 73.8 H, Lymph % (Auto) 17.3 L, [place] % (Auto) 5.8, Eos % (Auto) 0.9, Baso % (Auto) 0.6, Absolute Neuts (auto) 11.8 H, Nucleated RBC % 0 04/29/22 07:56: Sodium 140, Potassium 4.9, Chloride 105, Carbon Dioxide 25.0, Anion Gap 10, BUN 61 H, Creatinine 5.68 H, Est GFR (MDRD) Af Amer 13 L, Est GFR (MDRD) Non-Af 11 L, BUN/Creatinine Ratio 10.7, Glucose 299 H, Calcium 9.1 04/29/22 07:56: Lactic Acid 3.4 H* 04/29/22 07:56: Phosphorus 5.4 H, Magnesium 2.1 04/29/22 08:04: VBG pH 7.23 L, VBG pO2 48 H, VBG HCO3 25, VBG O2 Sat (Calc) 75 H , VBG Base Excess -3 L 04/29/22 09:45: PT 13.4, INR 1.1, APTT 33.9 04/29/22 14:00: Lactic Acid 1.6 04/29/22 17:20: APTT 44.0 H Rhythm: EKG: ECHO: Stress Test: Cardiac Cath: PCI: CT Surgery: Holter monitor: EPS: PPM: CXR: Chest CT Scan: Radiography Diagnostic Testing: Radiology Impression Chest X-Ray 04/29/22 08:35 IMPRESSION: Progressive bibasilar infiltrates worse on the left lung base with blunting of both gastric angles. Progressive increase in size of the nodular density in the right upper lobe. Persistent volume loss in the upper medial aspect of the right upper lobe with the displacement of the trachea to the right side of the midline. Electronically Signed: Herbert Carroll MD at 9:00 EST , Echocardiogram 04/29/22 12:42 Interpretation Summary Normal LV size. Left ventricular systolic function is lower limits of normal. The left ventricular ejection fraction is 50 %. Pulmonary artery systolic pressure is 47 mmHg. Contrast injection was performed. Ordering Physician: Jos Marion Referring Physician: Jonathan Baptiste Performed By: Clara Coronado, RDCS, RVT Chest CTA 04/29/22 14:15 IMPRESSION: No evidence of pulmonary embolism. Patchy infiltrates as described with volume loss in the right upper lobe suggestive of scarring. Mediastinal lymphadenopathy. Electronically Signed: Herbert Carroll MD at 14:39 EST ,
--- NOTE | 2022-04-29 20:03 | NURSING ---
Per report pt without iv access since after ct scan. Several attempts by dayshift rns to place iv were unsuccessful. Nights rn's to attempt new iv site. Pt currently receiving dialysis at this time.
--- NOTE | 2022-04-29 20:46 | DIALYSIS ---
Hemodialysis x 3hrs 15min. -3000ml UF. Stable t/ol. Hemostasis obtained, gauze/tape applied. report to malcolm patrick rn. See HD flowsheet for further details.
[2022-04-29 21:05] LABS: Bedside Glucose 160 mg/dL (74-106)
[2022-04-29] MEDS: Atorvastatin Calcium 20 MG Tablet PO (21:12)
[2022-04-29] MEDS: guaiFENesin 1,200 MG Tablet 1200 MG PO (21:12)
[2022-04-29] MEDS: Insulin Lispro 100 UNIT/ML INSULN.PEN SC (21:13)
[2022-04-29] MEDS: 0.9% Saline Lock 10 ML Syringe IV (21:13)
[2022-04-30] VITALS (15 sets, daily range): BP systolic 94–136; BP diastolic 48–83; PULSE 72–98; RESP 12–21; TEMP 36.4–36.8; O2SAT 92–100
[2022-04-30 03:27] LABS: Absolute Lymphocyte Count 0.84 X10^3/uL (0.83-4.51); Basophil# 0.01 X10^3/uL; Basophil% 0.1 % (0-1); Hematocrit 21.2 % (40-54); Hemoglobin 6.6 g/dL (13.0-16.5); Lymphocyte # 0.84 X10^3/ul (0.83-4.51); Lymphocyte % 10.5 % (19-41); Mean Corp Hgb Conc 31.1 g/dL (32-36); Mean Corpuscular Hgb 29.7 pg (27.0-32.0); Mean Corpuscular Volume 95.5 fL (80-94); Mean Platelet Vol. 10.7 fl (6.2-12.0); Monocyte# 0.06 X10^3/uL; Monocyte% 0.8 % (0-10); NRBC Flagged by Analyzer 0 % (0-5); Neutrophil # 7.01 X10^3/uL (2.7-7.7); Platelet Count 283 K/mm3 (150-450); RBC Distribution Width SD 55.8 fl (35.1-43.9); Red Blood Count 2.22 M/mm3 (4.6-6.2)
[2022-04-30 03:36] LABS: Partial Thromboplast Time 56.3 Seconds (24.1-36.2)
[2022-04-30 03:58] LABS: Anion Gap 10 (5-15); BUN 39 mg/dL (7-18); BUN/Creat Ratio 10.4 RATIO (10-20); Chloride 99 mmol/L (98-107); Creatinine, Serum 3.74 mg/dL (0.70-1.30); EST Glomerular Filtration Rate 17 mL/min (>60); Est Glom Filt Rate - Afr Amer 21 mL/min (>60); Estimated Creatinine Clearance 20.41 ml/min; Glucose 234 mg/dL (74-106); Potassium 4.9 mmol/L (3.5-5.1); Sodium Level 138 mmol/L (136-145); Thyroid Stim Hormone (TSH) 0.38 uIU/mL (0.358-3.74)
[2022-04-30] MEDS: Levothyroxine 88 MCG Tablet PO (05:44)
[2022-04-30 06:23] LABS: Absolute Lymphocyte Count 1.04 X10^3/uL (0.83-4.51); Absolute Neutrophil Count 6.5 X10^3/uL (2.0-7.7); Basophil# 0.01 X10^3/uL; Basophil% 0.1 % (0-1); Hematocrit 22.3 % (40-54); Hemoglobin 6.6 g/dL (13.0-16.5); Lymphocyte # 1.04 X10^3/ul (0.83-4.51); Lymphocyte % 13.4 % (19-41); Mean Corp Hgb Conc 29.6 g/dL (32-36); Mean Corpuscular Hgb 28.3 pg (27.0-32.0); Mean Corpuscular Volume 95.7 fL (80-94); Mean Platelet Vol. 10.3 fl (6.2-12.0); Monocyte% 2.6 % (0-10); NRBC Flagged by Analyzer 0 % (0-5); Neutrophil # 6.45 X10^3/uL (2.7-7.7); Platelet Count 282 K/mm3 (150-450); RBC Distribution Width SD 54.9 fl (35.1-43.9); Red Blood Count 2.33 M/mm3 (4.6-6.2); White Blood Count 7.8 K/mm3 (4.4-11.0)
[2022-04-30] MEDS: Ipratropium/Albuterol Sulfate 3 ML AMPUL.NEB INHALATION ×3 (06:30→20:18)
[2022-04-30] MEDS: Insulin Lispro 100 UNIT/ML INSULN.PEN SC ×4 (06:33→22:10)
[2022-04-30 06:45] LABS: Bedside Glucose 224 mg/dL (74-106)
--- NOTE | 2022-04-30 07:07 | PCM.PN.INT ---
Assessment & Plan Assessment/Plan (1) Acute respiratory failure with hypoxia and hypercapnia: (2) Smoking 1/2 pack a day or less: (3) ESRD (end stage renal disease) on dialysis: (4) DM type 2 (diabetes mellitus, type 2): PLAN: Plan RECOMMENDATIONS: 1. Discontinue heparin drip 2. We will discontinue steroids and antibiotics 3. Defer to hospitalist on inpatient versus outpatient evaluation for GI bleed 4. Outpatient low-dose CT scan 5. Encourage BiPAP with sleep 6. Okay to leave the intensive care unit from my perspective IMPRESSIONS: 1. Acute on chronic combined respiratory failure/COPD Patient was significant acidosis on VBG on presentation. Unfortunately, ABG was not obtained so hypercarbia is unclear. Patient did respond well to BiPAP therapy and given the rapidity of resolution, fluid overload would be suggested. Patient did report a salt intake overnight. Patient with significant improvement in less than 24 hours following volume removal with hemodialysis. Low clinical suspicion for COPD exacerbation, so antibiotics and steroids will be discontinued, especially in light of decreased hemoglobin. 2. History of colon cancer/right lobectomy Patient with minimal pleural effusions noted on chest x-ray. Patient may have a nodule in the right upper lobe, but this can be evaluated as an outpatient. Patient has had some marginal blood pressures, but this appears to be improving at this time. 3. ESRD/noncompliance with LADARIUS therapy/iron deficiency anemia/active tobacco abuse Complicates care, management, recovery and prognosis. Nephrology has been consulted. Patient tolerated hemodialysis yesterday with 3 L removed. Okay to continue with baseline medications. Patient would benefit from nocturnal BiPAP given highly variable clinical course. Ideally, this would be continued on discharge, but doubt patient will be agreeable. 4. Anemia Unclear etiology. Patient is on a heparin drip, but not having other GI bleed symptomatology such as abdominal pain or diarrhea. We will discontinue heparin drip. Defer to hospitalist on whether patient would be appropriate for an outpatient work-up of GI bleed if orthostatic negative. Consumption during hemodialysis is another consideration. Patient is not significantly hypotensive at this time. Subjective Subjective Patient did well overnight. Patient states he feels back to normal. Patient is not reporting any chest pain or abdominal pain. No nausea has been reported. Patient has not had a bowel movement. Objective Data Objective Data Vital Signs: Vital Signs Temp Pulse Resp BP Pulse Ox O2 Del Method O2 Flow Rate 36.7 C 80 17 94/48 L 98 Nasal Cannula 1 04/30/22 02:05 04/30/22 06:26 04/30/22 06:26 04/30/22 02:05 04/30/22 06:26 04/30/22 06:26 04/30/22 06:26 FiO2 25 04/29/22 08:57 Oxygen Flow Rate (L/min) 1 Oxygen Delivery Method Nasal Cannula Weight: 88.088 kg Body Mass Index (BMI) 27.1 Intake & Output: Intake and Output for Last 24 Hours 04/28/22 04/29/22 04/30/22 23:59 23:59 23:59 Intake Total 1693.17 / 1693.17 267.84 / 267.84 Output Total 3300 / 3300 Balance -1606.83 / -1606.83 267.84 / 267.84 Lab / Micro Data Attestation: I reviewed the patient's lab results. Result Diagrams: 04/30/22 06:05 04/30/22 03:10 Labs: Laboratory Results - last 24 hr 04/29/22 07:56: WBC 16.0 H, RBC 2.87 L, Hgb 8.3 L, Hct 28.4 L, MCV 99.0 H, MCH 28.9, MCHC 29.2 L, RDW Std Deviation 56.2 H, RDW Coeff of Joana 15.9 H, Plt Count 427, MPV 11.1, Immature Gran % (Auto) 1.600 H, Neut % (Auto) 73.8 H, Lymph % (Auto) 17.3 L, [place] % (Auto) 5.8, Eos % (Auto) 0.9, Baso % (Auto) 0.6, Absolute Neuts (auto) 11.8 H, Absolute Lymphs (auto) 2.76, Nucleated RBC % 0 04/29/22 07:56: Sodium 140, Potassium 4.9, Chloride 105, Carbon Dioxide 25.0, Anion Gap 10, BUN 61 H, Creatinine 5.68 H, Estim Creat Clear Calc 13.44, Est GFR (MDRD) Af Amer 13 L, Est GFR (MDRD) Non-Af 11 L, BUN/Creatinine Ratio 10.7, Glucose 299 H, Calcium 9.1, Troponin I High Sens 269 H* 02/13/23 07:56: Lactic Acid 3.4 H* 04/29/22 07:56: Phosphorus 5.4 H, Magnesium 2.1 04/29/22 09:45: PT 13.4, INR 1.1, APTT 33.9 04/29/22 11:45: Troponin I High Sens 527 H* 04/29/22 13:15: Troponin I High Sens 673 H* 04/29/22 14:00: Lactic Acid 1.6 04/29/22 15:47: POC Glucose 106 04/29/22 17:20: Troponin I High Sens 928 H* 04/29/22 17:20: APTT 44.0 H 04/29/22 20:47: POC Glucose 160 H 04/30/22 03:10: WBC 8.0, RBC 2.22 L, Hgb 6.6 L, Hct 21.2 L, MCV 95.5 H, MCH 29.7, MCHC 31.1 L D, RDW Std Deviation 55.8 H, RDW Coeff of Joana 16.0 H, Plt Count 283, MPV 10.7, Immature Gran % (Auto) 0.600, Neut % (Auto) 88.0 H, Lymph % (Auto) 10.5 L, [place] % (Auto) 0.8, Eos % (Auto) 0.0, Baso % (Auto) 0.1, Absolute Neuts (auto) 7.0, Absolute Lymphs (auto) 0.84, Nucleated RBC % 0 04/30/22 03:10: Sodium 138, Potassium 4.9, Chloride 99, Carbon Dioxide 29.0, Anion Gap 10, BUN 39 H, Creatinine 3.74 H, Estim Creat Clear Calc 20.41, Est GFR (MDRD) Af Amer 21 L, Est GFR (MDRD) Non-Af 17 L, BUN/Creatinine Ratio 10.4, Glucose 234 H, Calcium 8.0 L, TSH 0.38 04/30/22 03:10: APTT 56.3 H 04/30/22 06:05: WBC 7.8, RBC 2.33 L, Hgb 6.6 L, Hct 22.3 L, MCV 95.7 H, MCH 28.3, MCHC 29.6 L, RDW Std Deviation 54.9 H, RDW Coeff of Joana 16.0 H, Plt Count 282, MPV 10.3, Immature Gran % (Auto) 0.900, Neut % (Auto) 83.0 H, Lymph % (Auto) 13.4 L, [place] % (Auto) 2.6, Eos % (Auto) 0.0, Baso % (Auto) 0.1, Absolute Neuts (auto) 6.5, Absolute Lymphs (auto) 1.04, Nucleated RBC % 0 04/30/22 06:28: POC Glucose 224 H Micro: Microbiology 04/29/22 22:05 Urine, Random Legionella Antigen - Final 04/29/22 22:05 Urine, Random Streptococcus pneumoniae Antigen (M - Final 04/29/22 11:28 Mucosa - Nasopharyngeal Respiratory Panel (PCR) - Final 04/29/22 08:14 Nasal Secretion SARS-CoV-2 & FLU Antigen (Rapid) - Final ABG Data ABG results: ABG 04/29/22 08:04 Specimen Type SHERI VBG pH 7.23 L VBG pO2 48 H VBG HCO3 25 VBG Total CO2 27 VBG O2 Sat (Calc) 75 H VBG Base Excess -3 L POC Mix VBG pCO2 Pt Tmp 59.1 H Radiography Diagnostic Testing: Radiology Impression Chest X-Ray 04/29/22 08:35 IMPRESSION: Progressive bibasilar infiltrates worse on the left lung base with blunting of both gastric angles. Progressive increase in size of the nodular density in the right upper lobe. Persistent volume loss in the upper medial aspect of the right upper lobe with the displacement of the trachea to the right side of the midline. Electronically Signed: Herbert Carroll MD at 9:00 EST , Echocardiogram 04/29/22 12:42 Interpretation Summary Normal LV size. Left ventricular systolic function is lower limits of normal. The left ventricular ejection fraction is 50 %. Pulmonary artery systolic pressure is 47 mmHg. Contrast injection was performed. Ordering Physician: Jos Marion Referring Physician: Jonathan Baptiste Performed By: Clara Coronado, CURRYCS, RVT Chest CTA 04/29/22 14:15 IMPRESSION: No evidence of pulmonary embolism. Patchy infiltrates as described with volume loss in the right upper lobe suggestive of scarring. Mediastinal lymphadenopathy. Electronically Signed: Herbert Carroll MD at 14:39 EST , Rhythm Strip Rhythm Strip: Sinus Rhythm Rate: 72 Ectopy: None Physical Exam Const alert, oriented x3 and no apparent distress Constitutional Narrative: On nasal cannula with no conversational dyspnea. Appears older than stated age. General Appearance: cooperative and well developed HEENT normocephalic, head/scalp atraumatic and moist oral mucous membranes Eyes PERRL and EOMs intact bilaterally Neck full ROM, no lymphadenopathy and no JVD Chest inspection of chest normal Resp normal respiratory effort and no use of accessory muscles Effort and Inspection: able to speak in complete sentences Auscultation: clear to auscultation bilaterally and diminished lung sounds; Negative for rales, rhonchi or wheezes Percussion: Negative for dullness Cardio regular rate, regular rhythm, S1 normal heart sound, S2 normal heart sound, no murmurs, no rub and no gallops GI normal to inspection, nondistended, normoactive bowel sounds GI Narrative: Midline abdominal scar. no CVA tenderness Narrative: No suprapubic tenderness Extremity no clubbing, cyanosis or edema Skin no rashes or lesions noted Neuro oriented x3, CN's II-XII intact bilaterally, moves all extremities and no focal motor deficits Psych cooperative and affect normal Charges/Coding Visit Charges Inpatient E&M: 86607 Subs Hosp L3
--- NOTE | 2022-04-30 07:43 | PN.CARD_ITS ---
Subjective Subjective Patient seen and evaluated. Appears to be stable. Events of yesterday noted. Objective Data Vital Signs: Vital Signs Temp Pulse Resp BP Pulse Ox O2 Del Method O2 Flow Rate 98.1 F 80 17 94/48 L 98 Nasal Cannula 1 04/30/22 02:05 04/30/22 06:26 04/30/22 06:26 04/30/22 02:05 04/30/22 06:26 04/30/22 06:26 04/30/22 06:26 FiO2 25 04/29/22 08:57 Oxygen Flow Rate (L/min) 1 Oxygen Delivery Method Nasal Cannula Weight: 194 lb 3.2 oz Body Mass Index (BMI) 27.1 Intake & Output: Intake and Output for Last 24 Hours 04/28/22 04/29/22 04/30/22 23:59 23:59 23:59 Intake Total 1693.17 / 1693.17 267.84 / 267.84 Output Total 3300 / 3300 Balance -1606.83 / -1606.83 267.84 / 267.84 Lab / Micro Data Result Diagrams: 04/30/22 06:05 04/30/22 03:10 Labs: Laboratory Results - last 24 hr 04/29/22 07:56: WBC 16.0 H, RBC 2.87 L, Hgb 8.3 L, Hct 28.4 L, MCV 99.0 H, MCH 28.9, MCHC 29.2 L, RDW Std Deviation 56.2 H, RDW Coeff of Joana 15.9 H, Plt Count 427, MPV 11.1, Immature Gran % (Auto) 1.600 H, Neut % (Auto) 73.8 H, Lymph % (Auto) 17.3 L, Glynn % (Auto) 5.8, Eos % (Auto) 0.9, Baso % (Auto) 0.6, Absolute Neuts (auto) 11.8 H, Absolute Lymphs (auto) 2.76, Nucleated RBC % 0 04/29/22 07:56: Sodium 140, Potassium 4.9, Chloride 105, Carbon Dioxide 25.0, Anion Gap 10, BUN 61 H, Creatinine 5.68 H, Estim Creat Clear Calc 13.44, Est GFR (MDRD) Af Amer 13 L, Est GFR (MDRD) Non-Af 11 L, BUN/Creatinine Ratio 10.7, Glucose 299 H, Calcium 9.1, Troponin I High Sens 269 H* 04/29/22 07:56: Lactic Acid 3.4 H* 04/29/22 07:56: Phosphorus 5.4 H, Magnesium 2.1 04/29/22 09:45: PT 13.4, INR 1.1, APTT 33.9 04/29/22 11:45: Troponin I High Sens 527 H* 04/29/22 13:15: Troponin I High Sens 673 H* 04/29/22 14:00: Lactic Acid 1.6 04/29/22 15:47: POC Glucose 106 04/29/22 17:20: Troponin I High Sens 928 H* 04/29/22 17:20: APTT 44.0 H 04/29/22 20:47: POC Glucose 160 H 04/30/22 03:10: WBC 8.0, RBC 2.22 L, Hgb 6.6 L, Hct 21.2 L, MCV 95.5 H, MCH 29.7, MCHC 31.1 L D, RDW Std Deviation 55.8 H, RDW Coeff of Joana 16.0 H, Plt Count 283, MPV 10.7, Immature Gran % (Auto) 0.600, Neut % (Auto) 88.0 H, Lymph % (Auto) 10.5 L, Glynn % (Auto) 0.8, Eos % (Auto) 0.0, Baso % (Auto) 0.1, Absolute Neuts (auto) 7.0, Absolute Lymphs (auto) 0.84, Nucleated RBC % 0 04/30/22 03:10: Sodium 138, Potassium 4.9, Chloride 99, Carbon Dioxide 29.0, Anion Gap 10, BUN 39 H, Creatinine 3.74 H, Estim Creat Clear Calc 20.41, Est GFR (MDRD) Af Amer 21 L, Est GFR (MDRD) Non-Af 17 L, BUN/Creatinine Ratio 10.4, Glucose 234 H, Calcium 8.0 L, TSH 0.38 04/30/22 03:10: APTT 56.3 H 04/30/22 06:05: WBC 7.8, RBC 2.33 L, Hgb 6.6 L, Hct 22.3 L, MCV 95.7 H, MCH 28.3, MCHC 29.6 L, RDW Std Deviation 54.9 H, RDW Coeff of Joana 16.0 H, Plt Count 282, MPV 10.3, Immature Gran % (Auto) 0.900, Neut % (Auto) 83.0 H, Lymph % (Auto) 13.4 L, Glynn % (Auto) 2.6, Eos % (Auto) 0.0, Baso % (Auto) 0.1, Absolute Neuts (auto) 6.5, Absolute Lymphs (auto) 1.04, Nucleated RBC % 0 04/30/22 06:28: POC Glucose 224 H Micro: Microbiology 04/29/22 22:05 Urine, Random Legionella Antigen - Final 04/29/22 22:05 Urine, Random Streptococcus pneumoniae Antigen (M - Final 04/29/22 11:28 Mucosa - Nasopharyngeal Respiratory Panel (PCR) - Final 04/29/22 08:14 Nasal Secretion SARS-CoV-2 & FLU Antigen (Rapid) - Final ABG Data ABG results: ABG 04/29/22 08:04 Specimen Type SHERI VBG pH 7.23 L VBG pO2 48 H VBG HCO3 25 VBG Total CO2 27 VBG O2 Sat (Calc) 75 H VBG Base Excess -3 L POC Mix VBG pCO2 Pt Tmp 59.1 H Rhythm Strip Rhythm Strip: Sinus Rhythm Rate: 72 Ectopy: None Cardiology Labs/Tests 04/29/22 07:56: WBC 16.0 H, RBC 2.87 L, Hgb 8.3 L, Hct 28.4 L, MCV 99.0 H, MCH 28.9, MCHC 29.2 L, Plt Count 427, MPV 11.1, Immature Gran % (Auto) 1.600 H, Neut % (Auto) 73.8 H, Lymph % (Auto) 17.3 L, Glynn % (Auto) 5.8, Eos % (Auto) 0.9, Baso % (Auto) 0.6, Absolute Neuts (auto) 11.8 H, Nucleated RBC % 0 04/29/22 07:56: Sodium 140, Potassium 4.9, Chloride 105, Carbon Dioxide 25.0, Anion Gap 10, BUN 61 H, Creatinine 5.68 H, Est GFR (MDRD) Af Amer 13 L, Est GFR (MDRD) Non-Af 11 L, BUN/Creatinine Ratio 10.7, Glucose 299 H, Calcium 9.1 04/29/22 07:56: Lactic Acid 3.4 H* 04/29/22 07:56: Phosphorus 5.4 H, Magnesium 2.1 04/29/22 08:04: VBG pH 7.23 L, VBG pO2 48 H, VBG HCO3 25, VBG O2 Sat (Calc) 75 H , VBG Base Excess -3 L 04/29/22 09:45: PT 13.4, INR 1.1, APTT 33.9 04/29/22 14:00: Lactic Acid 1.6 04/29/22 17:20: APTT 44.0 H 04/30/22 03:10: WBC 8.0, RBC 2.22 L, Hgb 6.6 L, Hct 21.2 L, MCV 95.5 H, MCH 29.7, MCHC 31.1 L D, Plt Count 283, MPV 10.7, Immature Gran % (Auto) 0.600, Neut % (Auto) 88.0 H, Lymph % (Auto) 10.5 L, Glynn % (Auto) 0.8, Eos % (Auto) 0.0, Baso % (Auto) 0.1, Absolute Neuts (auto) 7.0, Nucleated RBC % 0 04/30/22 03:10: Sodium 138, Potassium 4.9, Chloride 99, Carbon Dioxide 29.0, Anion Gap 10, BUN 39 H, Creatinine 3.74 H, Est GFR (MDRD) Af Amer 21 L, Est GFR (MDRD) Non-Af 17 L, BUN/Creatinine Ratio 10.4, Glucose 234 H, Calcium 8.0 L 04/30/22 03:10: APTT 56.3 H 04/30/22 06:05: WBC 7.8, RBC 2.33 L, Hgb 6.6 L, Hct 22.3 L, MCV 95.7 H, MCH 28.3, MCHC 29.6 L, Plt Count 282, MPV 10.3, Immature Gran % (Auto) 0.900, Neut % (Auto) 83.0 H, Lymph % (Auto) 13.4 L, Glynn % (Auto) 2.6, Eos % (Auto) 0.0, Baso % (Auto) 0.1, Absolute Neuts (auto) 6.5, Nucleated RBC % 0 Rhythm: EKG: ECHO: Stress Test: Cardiac Cath: PCI: CT Surgery: Holter monitor: EPS: PPM: CXR: Chest CT Scan: Radiography Diagnostic Testing: Radiology Impression Chest X-Ray 04/29/22 08:35 IMPRESSION: Progressive bibasilar infiltrates worse on the left lung base with blunting of both gastric angles. Progressive increase in size of the nodular density in the right upper lobe. Persistent volume loss in the upper medial aspect of the right upper lobe with the displacement of the trachea to the right side of the midline. Electronically Signed: Herbert Carroll MD at 9:00 EST , Echocardiogram 04/29/22 12:42 Interpretation Summary Normal LV size. Left ventricular systolic function is lower limits of normal. The left ventricular ejection fraction is 50 %. Pulmonary artery systolic pressure is 47 mmHg. Contrast injection was performed. Ordering Physician: Jos Marion Referring Physician: Jonathan Baptiste Performed By: Clara Coronado, RAFAEL, RVT Chest CTA 04/29/22 14:15 IMPRESSION: No evidence of pulmonary embolism. Patchy infiltrates as described with volume loss in the right upper lobe suggestive of scarring. Mediastinal lymphadenopathy. Electronically Signed: Herbert Carroll MD at 14:39 EST , Physical Exam Const alert, oriented x3 and no apparent distress Constitutional Narrative: On nasal cannula with no conversational dyspnea. Appears older than stated age. General Appearance: cooperative and well developed HEENT normocephalic, head/scalp atraumatic and moist oral mucous membranes Eyes PERRL and EOMs intact bilaterally Neck full ROM, no lymphadenopathy and no JVD Chest inspection of chest normal Resp normal respiratory effort and no use of accessory muscles Effort and Inspection: able to speak in complete sentences Auscultation: clear to auscultation bilaterally and diminished lung sounds; Negative for rales, rhonchi or wheezes Percussion: Negative for dullness Cardio regular rate, regular rhythm, S1 normal heart sound, S2 normal heart sound, no murmurs, no rub and no gallops GI normal to inspection, nondistended, normoactive bowel sounds GI Narrative: Midline abdominal scar. no CVA tenderness Narrative: No suprapubic tenderness Extremity no clubbing, cyanosis or edema Skin no rashes or lesions noted Neuro oriented x3, CN's II-XII intact bilaterally, moves all extremities and no focal motor deficits Psych cooperative and affect normal Assessment & Plan Assessment/Plan (1) NSTEMI (non-ST elevation myocardial infarction): PLAN: He presents with shortness of breath and is noted to have a non-ST elevation myocardial infarction. He does have evidence of triple-vessel disease for which she has undergone multivessel angioplasty. My recommendation would be to see how he does with dialysis and consider a limited cardiac catheterization with possible intervention. The timing of the above will need to be discussed. * His hemoglobin today is significantly lower and I will like to see his hemoglobin improved before pursuing any interventional procedures. (2) Ischemic cardiomyopathy: PLAN: He does have evidence of ischemic cardiomyopathy and probable mild heart failure. His echocardiogram demonstrated ejection fraction of approximately 50% with no obvious segmental wall motion abnormalities noted. I will recommend that he continue with his dialysis at this particular time. Pending on his clinical course further recommendations will be made. We will see how he does in a day or 2.
[2022-04-30] MEDS: Aspirin E.C. 81 MG Tablet PO (09:13)
[2022-04-30] MEDS: Insulin Glargine-YFGN 100 UNIT/ML Pen 20 UNIT SC ×2 (09:14→16:46)
[2022-04-30] MEDS: Ferrous Sulfate 325 MG Tablet PO (09:14)
[2022-04-30] MEDS: Isosorbide Mononitrate 30 MG Tablet 15 MG PO (09:14)
[2022-04-30] MEDS: Escitalopram Oxalate 20 MG Tablet PO (09:16)
[2022-04-30] MEDS: guaiFENesin 1,200 MG Tablet 1200 MG PO ×2 (09:16→22:08)
[2022-04-30] MEDS: Clopidogrel Bisulfate 75 MG Tablet PO (09:16)
[2022-04-30] MEDS: Pantoprazole Sodium 40 MG Tablet PO (09:17)
[2022-04-30] MEDS: Finasteride 5 MG Tablet PO (09:17)
[2022-04-30] MEDS: Cholecalciferol (VIT D3) 25 MCG TABLET (1,000 UNITS) 50 MCG PO (09:17)
[2022-04-30 11:56] LABS: Partial Thromboplast Time 35.4 Seconds (24.1-36.2)
[2022-04-30 12:20] LABS: Bedside Glucose 272 mg/dL (74-106)
--- NOTE | 2022-04-30 13:28 | PN.HOSP_ITS ---
Reason for Visit Reason for Visit: Follow-up for acute hypoxic respiratory failure and dyspnea at rest and NSTEMI Diagnoses Type 2 diabetes mellitus without complications (04/29/22) Acidosis, unspecified (04/29/22) Nicotine dependence, cigarettes, uncomplicated (04/29/22) Non-ST elevation (NSTEMI) myocardial infarction (04/29/22) Ischemic cardiomyopathy (04/29/22) Hypotension, unspecified (04/29/22) Pneumonia, unspecified organism (04/29/22) Chronic obstructive pulmonary disease, unspecified (04/29/22) Acute respiratory failure with hypoxia (04/29/22) Acute respiratory failure with hypercapnia (04/29/22) End stage renal disease (04/29/22) Other specified abnormalities of plasma proteins (04/29/22) Dependence on renal dialysis (04/29/22) Objective Data Objective Data Vital Signs: Vital Signs Temp Pulse Resp BP Pulse Ox O2 Del Method O2 Flow Rate 97.9 F 85 21 H 121/57 H 98 Nasal Cannula 2 04/30/22 13:20 04/30/22 13:20 04/30/22 13:20 04/30/22 13:20 04/30/22 13:20 04/30/22 13:21 04/30/22 13:20 FiO2 25 04/29/22 08:57 Oxygen Flow Rate (L/min) 2 Oxygen Delivery Method Nasal Cannula Weight: 194 lb 3.213 oz Body Mass Index (BMI) 27.1 Intake & Output: Intake and Output for Last 24 Hours 04/28/22 04/29/22 04/30/22 23:59 23:59 23:59 Intake Total 1693.17 / 1693.17 747.84 / 747.84 Output Total 3300 / 3300 200 / 200 Balance -1606.83 / -1606.83 547.84 / 547.84 Lab / Micro Data Result Diagrams: 04/30/22 06:05 04/30/22 03:10 Labs: Laboratory Results - last 24 hr 04/29/22 13:15: Troponin I High Sens 673 H* 04/29/22 14:00: Lactic Acid 1.6 04/29/22 15:47: POC Glucose 106 04/29/22 17:20: Troponin I High Sens 928 H* 04/29/22 17:20: APTT 44.0 H 04/29/22 20:47: POC Glucose 160 H 04/30/22 03:10: WBC 8.0, RBC 2.22 L, Hgb 6.6 L, Hct 21.2 L, MCV 95.5 H, MCH 29.7, MCHC 31.1 L D, RDW Std Deviation 55.8 H, RDW Coeff of Joana 16.0 H, Plt Count 283, MPV 10.7, Immature Gran % (Auto) 0.600, Neut % (Auto) 88.0 H, Lymph % (Auto) 10.5 L, Sampson % (Auto) 0.8, Eos % (Auto) 0.0, Baso % (Auto) 0.1, Absolute Neuts (auto) 7.0, Absolute Lymphs (auto) 0.84, Nucleated RBC % 0 04/30/22 03:10: Sodium 138, Potassium 4.9, Chloride 99, Carbon Dioxide 29.0, Anion Gap 10, BUN 39 H, Creatinine 3.74 H, Estim Creat Clear Calc 20.41, Est GFR (MDRD) Af Amer 21 L, Est GFR (MDRD) Non-Af 17 L, BUN/Creatinine Ratio 10.4, G lucose 234 H, Calcium 8.0 L, TSH 0.38 04/30/22 03:10: APTT 56.3 H 04/30/22 06:05: WBC 7.8, RBC 2.33 L, Hgb 6.6 L, Hct 22.3 L, MCV 95.7 H, MCH 28.3, MCHC 29.6 L, RDW Std Deviation 54.9 H, RDW Coeff of Joana 16.0 H, Plt Count 282, MPV 10.3, Immature Gran % (Auto) 0.900, Neut % (Auto) 83.0 H, Lymph % (Aut o) 13.4 L, Sampson % (Auto) 2.6, Eos % (Auto) 0.0, Baso % (Auto) 0.1, Absolute Neuts (auto) 6.5, Absolute Lymphs (auto) 1.04, Nucleated RBC % 0 04/30/22 06:28: POC Glucose 224 H 04/30/22 11:40: APTT 35.4 04/30/22 11:55: POC Glucose 272 H Micro: Microbiology 04/29/22 22:05 Urine, Random Legionella Antigen - Final 04/29/22 22:05 Urine, Random Streptococcus pneumoniae Antigen (M - Final 04/29/22 11:28 Mucosa - Nasopharyngeal Respiratory Panel (PCR) - Final 04/29/22 08:14 Nasal Secretion SARS-CoV-2 & FLU Antigen (Rapid) - Final Radiography Diagnostic Testing: Radiology Impression Echocardiogram 04/29/22 12:42 Interpretation Summary Normal LV size. Left ventricular systolic function is lower limits of normal. The left ventricular ejection fraction is 50 %. Pulmonary artery systolic pressure is 47 mmHg. Contrast injection was performed. Chest CTA 04/29/22 14:15 IMPRESSION: No evidence of pulmonary embolism. Patchy infiltrates as described with volume loss in the right upper lobe suggestive of scarring. Mediastinal lymphadenopathy. Electronically Signed: Herbert Carroll MD at 14:39 EST Reading Location ID and State: [facility] / [place] , Service support , Rhythm Strip Rhythm Strip: Sinus Rhythm Rate: 72 Ectopy: None Physical Exam Narrative Patient shortness of breath is much better. No chest pain. Patient stated he did not had chest pain during previous [place]. Hemoglobin is low. Physical exam General: Alert, Oriented x3, Cooperative HEENT: Atraumatic, PERRLA, EOMI, Normocephalic Oral: Oral mucosa moist. No Gingival or Mucosal Lesions/ Ulcerations Neck: Supple, No JVD, Negative Carotid Bruits Lungs: Air entry diminished in diffusely in all lung gamboa. No expiratory rhonchi or crepitations Cardiovascular: Sinus rhythm, normal S1, Normal S2, no murmur gallop or rub. Abdomen: Midline surgical abdominal scar. Bowel Sounds Present, Soft, Non Tender, Non-Distended : No renal angle tenderness. No suprapubic tenderness. Extremities: No edema, Capillary Refill Less than 3 Seconds Skin: No rashes, No breakdown Musculoskeletal: Arthritic changes in knee and hip joints. ROM full. No Tenderness to Palpation of Joints or Extremities Neurological: Cranial nerves II-XII grossly intact, DTR 2+/4 and Symmetrical. Psych/Mental Status: Flat affect. Assessment & Plan Assessment/Plan (1) Acute respiratory failure with hypoxia and hypercapnia: (2) Pneumonia: PLAN: Plan This is a 66-year-old male being admitted for sudden onset of shortness of breath during sleep along with dizziness and found to be hypotensive and severely hypoxic. 1. Acute sudden onset hypoxic and hypercarbic respiratory failure: Patient is being admitted in ICU. VBG 7. suggestive of acute hypoxic and hypercarbic respiratory failure. Bicarb normal 25. Exact etiology unclear but possible pulmonary embolism in view of history of malignancy, pneumonia, COPD exacerbation, non-STEMI. Foaming Machine Operator consulted Modified Wells criteria for PE about [address] angiogram ordered to rule out PE. 04/30: CTA was reviewed yesterday and no PE. Evidence of emphysematous changes. Patchy infiltrates at both lung bases and left upper lobe with volume loss in right upper lobe. 2. Sepsis possible due to bilateral pneumonia: The patient presented with sepsis due to bilateral pneumonia with acute sepsis-related organ dysfunction as evidenced by acute hypoxic and hypercarbic respiratory failure, hypotension responsive to IV fluid bolus, and lactic acidosis. Liver chemistry ordered. Patient has elevated creatinine from end-stage kidney disease. Hypotension has recovered. Patient on broad-spectrum IV antibiotic vancomycin and Zosyn. Chest x-ray shows bibasilar progressive infiltrate. Pneumonia work-up including blood cultures x2 ordered. Rapid SARS-CoV-2 and flu antigen are negative Acute severe anemia on anemia of chronic disease: Hemoglobin 6.6 gram percent x2. Monitor PRBC transfusion ordered. Heparin drip is discontinued.Aspirin is on hold. Continue Plavix. 3. Coronary artery disease status post stent possible non-STEMI: Patient has progressively increasing high sensitive troponin. Denies any chest pain or tightness or pressure even at home. Twelve-lead EKG from EMS and ER reviewed and shows slight ST depression in V5 to V6, sinus tachycardia 121 bpm. QTc 431 ms. Litigation Examiner is consulted. 2D echo ordered. Patient started on IV heparin drip with bolus. At home patient is on aspirin, Plavix, isosorbide mononitrate, and rosuvastatin continued. Patient not on beta-tanner, SHAR or ARB probably due to severe COPD and kidney failure. 04/30: EF 50% on lower limit of normal. [place] hypokinetic. 1-2+ TR. PASP 47 mm Ministry of moderate pulmonary hypertension. Overall suggestive of mild HFrEF with pulmonary hypertension 4. Possible COPD exacerbation: Patient has history of COPD, right lower lobectomy seems for benign coverage. On IV Solu-Medrol and bronchodilator, Mucinex, incentive spirometry and Pep ordered. 5. Colon cancer status post subtotal colectomy: Usually patient has loose bowel movement and takes Imodium. 6. ESKD on hemodialysis. Nutrition Partner Dr. Magana is consulted. Discussed with her. 04/30: Dialysis as per sheet metal former recommendation. 7. Type 2 DM: Glucose 299 BMP. Accu-Chek H&H's coverage Humalog sliding scale. Started on Lantus 20 units daily. 04/30 glucose level is high at 234. Lantus 20 was changed to twice daily. 8. Hypothyroidism, continue on Synthroid. 04/30: TSH is normal. 9. DVT PPx- on heparin drip Clinical Impression(s) from Imaging Studies Chest X-Ray 04/29/22 08:35 IMPRESSION: Progressive bibasilar infiltrates worse on the left lung base with blunting of both gastric angles. Progressive increase in size of the nodular density in the right upper lobe. Persistent volume loss in the upper medial aspect of the right upper lobe with the displacement of the trachea to the right side of the midline. Echocardiogram 04/29/22 12:42 Interpretation Summary Normal LV size. Left ventricular systolic function is lower limits of normal. The left ventricular ejection fraction is 50 %. Pulmonary artery systolic pressure is 47 mmHg. Contrast injection was performed. Chest CTA 04/29/22 14:15 IMPRESSION: No evidence of pulmonary embolism. Patchy infiltrates as described with volume loss in the right upper lobe suggestive of scarring. Mediastinal lymphadenopathy. Electronically Signed: Herbert Carroll MD at 14:39 EST , Living will/advanced directive/end of life care: Patient does have living will or advanced directive. His son is power of employment law attorney for health. After discussion of benefits/risks procedures involved with full code, DNR CC arrest and DNR CC, the patient and his sister near the bedside, they opted for DNRCC arrest with no intubation. Patient doesn't want artificial life support including intubation, tube feed, ventilator and/chest compression, central venous catheter, vasopressor and DC shock if needed Total time spent in [id number] encounter in discussion of advanced directive 16 minutes. Microbiology Past 72 Hours 04/29/22 08:14 Nasal Secretion SARS-CoV-2 & FLU Antigen (Rapid) - Final Laboratory Results 04/29/22 07:56: WBC 16.0 H, RBC 2.87 L, Hgb 8.3 L, Hct 28.4 L, MCV 99.0 H, MCH 28.9, MCHC 29.2 L, RDW Std Deviation 56.2 H, RDW Coeff of Joana 15.9 H, Plt Count 427, MPV 11.1, Immature Gran % (Auto) 1.600 H, Neut % (Auto) 73.8 H, Lymph % (Auto) 17.3 L, Sampson % (Auto) 5.8, Eos % (Auto) 0.9, Baso % (Auto) 0.6, Absolute Neuts (auto) 11.8 H, Absolute Lymphs (auto) 2.76, Nucleated RBC % 0 04/29/22 07:56: Sodium 140, Potassium 4.9, Chloride 105, Carbon Dioxide 25.0, Anion Gap 10, BUN 61 H, Creatinine 5.68 H, Estim Creat Clear Calc 13.44, Est GFR (MDRD) Af Amer 13 L, Est GFR (MDRD) Non-Af 11 L, BUN/Creatinine Ratio 10.7, Glucose 299 H, Calcium 9.1, Troponin I High Sens 269 H* 04/29/22 07:56: Lactic Acid 3.4 H* 04/29/22 07:56: Phosphorus 5.4 H, Magnesium 2.1 04/29/22 08:04: Specimen Type SHERI, VBG pH 7.23 L, VBG pO2 48 H, VBG HCO3 25, VBG Total CO2 27, VBG O2 Sat (Calc) 75 H, VBG Base Excess -3 L, POC Mix VBG pCO2 Pt Tmp 59.1 H 04/29/22 09:45: PT 13.4, INR 1.1, APTT 33.9 04/29/22 11:45: Troponin I High Sens 527 H* Clinical Impression(s) from Imaging Studies Chest X-Ray 04/29/22 08:35 IMPRESSION: Progressive bibasilar infiltrates worse on the left lung base with blunting of both gastric angles. Progressive increase in size of the nodular density in the right upper lobe. Persistent volume loss in the upper medial aspect of the right upper lobe with the displacement of the trachea to the right side of the midline. Charges/Coding Multi Select Codes Visit Charges Visit Charges: 76696 Subs Hosp L3
--- NOTE | 2022-04-30 15:15 | CASEMGMT ---
DEVEN SAAVEDRA readmission note: Prior admission: Admitted 04/01/22 w/sepsis and L PNA. (A day prior to this admission pt had signed out AMA from another hospital). Pt has a hx of ESRD and gets OP HD @ [facility]. He also has a hx of DM and COPD. Pt smokes 1/2 PPD. Pt discharged home 04/04 w/script for 4 more days of PO Levaquin and was to f/u with PCP in a week and to continue w/OP HD MWF as previously scheduled @ [facility]. He qualified for O2 @ 2 l/m w/exertion and this as set up thru [facility]. He denied need for HHC @ discharge. Current admission: Admitted 04/29/22 w/acute resp failure and NSTEMI. DEVEN SAAVEDRA to room. Introduced self and role. Pt states he did picker feeder the rx for Levaquin after last discharge and took as prescribed. He also states he has been taking his other medications as prescribed and has been wearing his oxygen w/exertion. He has been going to [facility] for OP HD MWF and states chair time is @ 0745 and he drives himself there. Pt states he was supposed to see Dr Baptiste after last discharge but did not go and could not recall why he did not go or if he rescheduled another appt. DEVEN SAAVEDRA placed call to Dr Baptiste's office and was informed pt had appts on both 04/18 (hospital f/u appt) and 04/25 (office visit appt) but was a No-show to both of them. They stated they have a policy if pt has 3 no-shows w/in a year that they will not accept him back again. DEVEN SAAVEDRA back to pt's room to inform him of this. Pt stated then that he did remember that for one of the appts that he was having car problems and his phone service was also not working that day, so he could not call to cancel the appt. Discussed CCN w/pt for assistance w/medications, appts, and education. He states he is interested in this and is agreeable to a referral. Order placed and call placed to Ferny @ [facility]. She states she will review the referral to make a determination of acceptance. Pt denies need for HHC at discharge and denies other discharge planning needs at this time. Pt instructed to ask for DEVEN SAAVEDRA if any further needs arise. He voices understanding and appreciation. Plan: Home. CCN referral placed. Shirley FULTONN RN CM
--- NOTE | 2022-04-30 15:29 | CASEMGMT ---
DEVEN CM Note: Insurance review for hospitals In-network withSpencer [facility]FONSO Insurance if transfer is recommended is as follows: [facility], [place], [facility], [facility], [facility], [facility], [facility] ([facility]), and . Shirley FULTONN RN CM
[2022-04-30 17:25] LABS: Bedside Glucose 243 mg/dL (74-106)
[2022-04-30] MEDS: 0.9% Saline Lock 10 ML Syringe IV (22:08)
[2022-04-30] MEDS: Atorvastatin Calcium 20 MG Tablet PO (22:09)
[2022-04-30 23:55] LABS: Bedside Glucose 170 mg/dL (74-106)
[2022-05-01] VITALS (7 sets, daily range): BP systolic 104–145; BP diastolic 57–67; PULSE 70–95; RESP 16–19; TEMP 36.6–37.3; O2SAT 92–97
[2022-05-01] MEDS: Levothyroxine 88 MCG Tablet PO (04:16)
[2022-05-01 05:35] LABS: Absolute Lymphocyte Count 2.41 X10^3/uL (0.83-4.51); Absolute Neutrophil Count 7.5 X10^3/uL (2.0-7.7); Basophil# 0.04 X10^3/uL; Basophil% 0.4 % (0-1); Eosinophil# 0.01 X10^3/uL; Eosinophils% 0.1 % (0-5); Hemoglobin 7.4 g/dL (13.0-16.5); Lymphocyte # 2.41 X10^3/ul (0.83-4.51); Lymphocyte % 22.2 % (19-41); Mean Corp Hgb Conc 30.8 g/dL (32-36); Mean Corpuscular Hgb 28.4 pg (27.0-32.0); Mean Platelet Vol. 11.3 fl (6.2-12.0); Monocyte# 0.79 X10^3/uL; Monocyte% 7.3 % (0-10); NRBC Flagged by Analyzer 0 % (0-5); Neutrophil # 7.46 X10^3/uL (2.7-7.7); Neutrophil % 68.8 % (47-70); Platelet Count 295 K/mm3 (150-450); RBC Distribution Width CV 17.4 % (11.6-14.6); RBC Distribution Width SD 59.3 fl (35.1-43.9); Red Blood Count 2.61 M/mm3 (4.6-6.2); White Blood Count 10.8 K/mm3 (4.4-11.0)
[2022-05-01 06:24] LABS: Anion Gap 14 (5-15); BUN 75 mg/dL (7-18); BUN/Creat Ratio 13.1 RATIO (10-20); Calcium,Total 7.8 mg/dL (8.5-10.1); Chloride 102 mmol/L (98-107); Creatinine, Serum 5.72 mg/dL (0.70-1.30); EST Glomerular Filtration Rate 11 mL/min (>60); Est Glom Filt Rate - Afr Amer 13 mL/min (>60); Estimated Creatinine Clearance 13.35 ml/min; Glucose 142 mg/dL (74-106); Potassium 4.9 mmol/L (3.5-5.1); Sodium Level 141 mmol/L (136-145)
--- NOTE | 2022-05-01 08:06 | PN.CARD_ITS ---
Subjective Subjective Patient seen and evaluated. Objective Data Vital Signs: Vital Signs Temp Pulse Resp BP Pulse Ox O2 Del Method O2 Flow Rate 97.8 F 72 18 104/62 93 Room Air 2 05/01/22 04:02 05/01/22 04:02 05/01/22 04:02 05/01/22 04:02 05/01/22 08:00 05/01/22 08:00 04/30/22 13:20 FiO2 25 04/29/22 08:57 Oxygen Flow Rate (L/min) 2 Oxygen Delivery Method Room Air Weight: 190 lb 0.615 oz Body Mass Index (BMI) 27.1 Intake & Output: Intake and Output for Last 24 Hours 04/29/22 04/30/22 05/01/22 23:59 23:59 23:59 Intake Total 1693.17 / 1693.17 1147.84 / 1147.84 50 / 50 Output Total 3300 / 3300 200 / 200 Balance -1606.83 / -1606.83 947.84 / 947.84 50 / 50 Lab / Micro Data Result Diagrams: 05/01/22 04:22 05/01/22 04:22 Labs: Laboratory Results - last 24 hr 04/30/22 11:40: APTT 35.4 04/30/22 11:55: POC Glucose 272 H 04/30/22 13:45: Blood Type A POSITIVE, Antibody Screen NEGATIVE, Crossmatch See Detail 04/30/22 16:44: POC Glucose 243 H 04/30/22 22:00: POC Glucose 170 H 05/01/22 04:22: WBC 10.8, RBC 2.61 L, Hgb 7.4 L, Hct 24.0 L, MCV 92.0, MCH 28.4, MCHC 30.8 L, RDW Std Deviation 59.3 H, RDW Coeff of Joana 17.4 H, Plt Count 295, MPV 11.3, Immature Gran % (Auto) 1.200 H, Neut % (Auto) 68.8, Lymph % (Auto) 22.2, [place] % (Auto) 7.3, Eos % (Auto) 0.1, Baso % (Auto) 0.4, Absolute Neuts (auto) 7.5, Absolute Lymphs (auto) 2.41, Nucleated RBC % 0 05/01/22 04:22: Sodium 141, Potassium 4.9, Chloride 102, Carbon Dioxide 25.0, Anion Gap 14, BUN 75 H, Creatinine 5.72 H, Estim Creat Clear Calc 13.35, Est GFR (MDRD) Af Amer 13 L, Est GFR (MDRD) Non-Af 11 L, BUN/Creatinine Ratio 13.1, Glucose 142 H, Calcium 7.8 L Rhythm Strip Rhythm Strip: Sinus Rhythm Rate: 72 Ectopy: None Cardiology Labs/Tests 04/30/22 11:40: APTT 35.4 05/01/22 04:22: WBC 10.8, RBC 2.61 L, Hgb 7.4 L, Hct 24.0 L, MCV 92.0, MCH 28.4, MCHC 30.8 L, Plt Count 295, MPV 11.3, Immature Gran % (Auto) 1.200 H, Neut % (Auto) 68.8, Lymph % (Auto) 22.2, [place] % (Auto) 7.3, Eos % (Auto) 0.1, Baso % (Auto) 0.4, Absolute Neuts (auto) 7.5, Nucleated RBC % 0 05/01/22 04:22: Sodium 141, Potassium 4.9, Chloride 102, Carbon Dioxide 25.0, Anion Gap 14, BUN 75 H, Creatinine 5.72 H, Est GFR (MDRD) Af Amer 13 L, Est GFR (MDRD) Non-Af 11 L, BUN/Creatinine Ratio 13.1, Glucose 142 H, Calcium 7.8 L Rhythm: EKG: ECHO: Stress Test: Cardiac Cath: PCI: CT Surgery: Holter monitor: EPS: PPM: CXR: Chest CT Scan: Physical Exam Const alert, oriented x3 and no apparent distress Constitutional Narrative: On nasal cannula with no conversational dyspnea. Appears older than stated age. General Appearance: cooperative and well developed HEENT normocephalic, head/scalp atraumatic and moist oral mucous membranes Eyes PERRL and EOMs intact bilaterally Neck full ROM, no lymphadenopathy and no JVD Chest inspection of chest normal Resp normal respiratory effort and no use of accessory muscles Effort and Inspection: able to speak in complete sentences Auscultation: clear to auscultation bilaterally and diminished lung sounds; Negative for rales, rhonchi or wheezes Percussion: Negative for dullness Cardio regular rate, regular rhythm, S1 normal heart sound, S2 normal heart sound, no murmurs, no rub and no gallops GI normal to inspection, nondistended, normoactive bowel sounds GI Narrative: Midline abdominal scar. no CVA tenderness Narrative: No suprapubic tenderness Extremity no clubbing, cyanosis or edema Skin no rashes or lesions noted Neuro oriented x3, CN's II-XII intact bilaterally, moves all extremities and no focal motor deficits Psych cooperative and affect normal Assessment & Plan Assessment/Plan (1) NSTEMI (non-ST elevation myocardial infarction): PLAN: He presents with shortness of breath and is noted to have a non-ST elevation myocardial infarction. He does have evidence of triple-vessel disease for which she has undergone multivessel angioplasty. My recommendation would be to see how he does with dialysis and consider a limited cardiac catheterization with possible intervention. The timing of the above will need to be discussed. * His hemoglobin today is improved. My suspicion is that he will undergo dialysis today as well. We will decide on any invasive procedures after today. (2) Ischemic cardiomyopathy: PLAN: He does have evidence of ischemic cardiomyopathy and probable mild heart failure. His echocardiogram demonstrated ejection fraction of approximately 50% with no obvious segmental wall motion abnormalities noted. I will recommend that he continue with his dialysis at this particular time. Pending on his clinical course further recommendations will be made. We will see how he does in a day or 2.
--- NOTE | 2022-05-01 08:24 | CASEMGMT ---
DEVEN SAAVEDRA NOTE: Erika @ [facility] aware pt has been admitted to [facility]. Shirley FULTONN DEVEN CM
--- NOTE | 2022-05-01 08:41 | PN.RENAL_ITS ---
Subjective Subjective denies chest pain, SOB. Hgb low at 7.4g. Objective Data Objective Data Vital Signs: Vital Signs Temp Pulse Resp BP Pulse Ox O2 Del Method O2 Flow Rate 97.8 F 72 18 104/62 93 Room Air 2 05/01/22 04:02 05/01/22 04:02 05/01/22 04:02 05/01/22 04:02 05/01/22 08:00 05/01/22 08:00 04/30/22 13:20 FiO2 25 04/29/22 08:57 Oxygen Flow Rate (L/min) 2 Oxygen Delivery Method Room Air Weight: 86.2 kg Body Mass Index (BMI) 27.1 Intake & Output: Intake and Output for Last 24 Hours 04/29/22 04/30/22 05/01/22 23:59 23:59 23:59 Intake Total 1693.17 / 1693.17 1147.84 / 1147.84 50 / 50 Output Total 3300 / 3300 200 / 200 Balance -1606.83 / -1606.83 947.84 / 947.84 50 / 50 Lab / Micro Data Result Diagrams: 05/01/22 04:22 05/01/22 04:22 Labs: Laboratory Results - last 24 hr 04/30/22 11:40: APTT 35.4 04/30/22 11:55: POC Glucose 272 H 04/30/22 13:45: Blood Type A POSITIVE, Antibody Screen NEGATIVE, Crossmatch See Detail 04/30/22 16:44: POC Glucose 243 H 04/30/22 22:00: POC Glucose 170 H 05/01/22 04:22: WBC 10.8, RBC 2.61 L, Hgb 7.4 L, Hct 24.0 L, MCV 92.0, MCH 28.4, MCHC 30.8 L, RDW Std Deviation 59.3 H, RDW Coeff of Joana 17.4 H, Plt Count 295, MPV 11.3, Immature Gran % (Auto) 1.200 H, Neut % (Auto) 68.8, Lymph % (Auto) 22.2, [place] % (Auto) 7.3, Eos % (Auto) 0.1, Baso % (Auto) 0.4, Absolute Neuts (auto) 7.5, Absolute Lymphs (auto) 2.41, Nucleated RBC % 0 05/01/22 04:22: Sodium 141, Potassium 4.9, Chloride 102, Carbon Dioxide 25.0, Anion Gap 14, BUN 75 H, Creatinine 5.72 H, Estim Creat Clear Calc 13.35, Est GFR (MDRD) Af Amer 13 L, Est GFR (MDRD) Non-Af 11 L, BUN/Creatinine Ratio 13.1, Glucose 142 H, Calcium 7.8 L Micro: Microbiology 04/29/22 22:05 Urine, Random Legionella Antigen - Final 04/29/22 22:05 Urine, Random Streptococcus pneumoniae Antigen (M - Final 04/29/22 11:28 Mucosa - Nasopharyngeal Respiratory Panel (PCR) - Final 04/29/22 08:14 Nasal Secretion SARS-CoV-2 & FLU Antigen (Rapid) - Final Rhythm Strip Rhythm Strip: Sinus Rhythm Rate: 72 Ectopy: None Physical Exam Const alert and oriented x3 Resp Auscultation: wheezes and diminished lung sounds Cardio regular rate Extremity no clubbing, cyanosis or edema General Extremity: AV fistula Neuro Sensorium / Orientation: awake and alert Assessment & Plan Assessment/Plan (1) ESRD (end stage renal disease) on dialysis: PLAN: Dialysis today and Fridays (2) NSTEMI (non-ST elevation myocardial infarction): PLAN: cardiology following (3) DM type 2 (diabetes mellitus, type 2): (4) Acute respiratory failure with hypoxia and hypercapnia: PLAN: oxygenation stable. (5) Hypotension: PLAN: Resolved (6) COPD (chronic obstructive pulmonary disease): (7) Nicotine dependence, cigarettes, uncomplicated: (8) Anemia: PLAN: hgb 7.4g. prbc
[2022-05-01 08:55] LABS: Bedside Glucose 146 mg/dL (74-106)
[2022-05-01] MEDS: Insulin Glargine-YFGN 100 UNIT/ML Pen 20 UNIT SC ×2 (09:26→17:29)
[2022-05-01] MEDS: Cholecalciferol (VIT D3) 25 MCG TABLET (1,000 UNITS) 50 MCG PO (09:27)
[2022-05-01] MEDS: Finasteride 5 MG Tablet PO (09:27)
[2022-05-01] MEDS: Clopidogrel Bisulfate 75 MG Tablet PO (09:27)
[2022-05-01] MEDS: guaiFENesin 1,200 MG Tablet 1200 MG PO ×2 (09:27→21:04)
[2022-05-01] MEDS: Escitalopram Oxalate 20 MG Tablet PO (09:29)
[2022-05-01] MEDS: Pantoprazole Sodium 40 MG Tablet PO ×2 (09:29→21:04)
[2022-05-01] MEDS: Isosorbide Mononitrate 30 MG Tablet 15 MG PO (09:29)
[2022-05-01] MEDS: Ferrous Sulfate 325 MG Tablet PO (09:29)
--- NOTE | 2022-05-01 09:56 | PN.CC_ITS ---
Assessment & Plan Assessment/Plan (1) Acute respiratory failure with hypoxia and hypercapnia: (2) Smoking 1/2 pack a day or less: (3) ESRD (end stage renal disease) on dialysis: (4) DM type 2 (diabetes mellitus, type 2): PLAN: Plan RECOMMENDATIONS: 1. Anemia work-up per hospitalist 2. Okay to resume baseline respiratory regimen on discharge 3. Defer to hospitalist on inpatient versus outpatient evaluation for GI bleed 4. Outpatient low-dose CT scan 5. Encourage BiPAP with sleep 6. Hemodynamically stable on room air. Will sign off from a critical care/pulmonary perspective IMPRESSIONS: 1. Acute on chronic combined respiratory failure/COPD Patient was significant acidosis on VBG on presentation. Unfortunately, ABG was not obtained so hypercarbia is unclear. Patient did respond well to BiPAP therapy and given the rapidity of resolution, fluid overload would be suggested. Patient did report a salt intake overnight the day prior to presentation. Patient with significant improvement in less than 24 hours following volume removal with hemodialysis. Low clinical suspicion for COPD exacerbation, so antibiotics and steroids were discontinued, especially in light of decreased hemoglobin and possibility of GI bleed. 2. History of colon cancer/right lobectomy Patient with minimal pleural effusions noted on chest x-ray. Patient may have a nodule in the right upper lobe, but this can be evaluated as an outpatient. Patient has had some marginal blood pressures, but this appears to be improving at this time. 3. ESRD/noncompliance with LADARIUS therapy/iron deficiency anemia/active tobacco abuse Complicates care, management, recovery and prognosis. Nephrology has been consulted. Patient tolerated hemodialysis previously with 3 L removed. Okay to continue with baseline medications. Patient would benefit from nocturnal BiPAP given highly variable clinical course. Ideally, this would be continued on discharge, but doubt patient will be agreeable. 4. Anemia Unclear etiology. Patient is on a heparin drip, but not having other GI bleed symptomatology such as abdominal pain or diarrhea. Patient currently off heparin drip. Defer to hospitalist on whether patient would be appropriate for an outpatient work-up of GI bleed if orthostatic negative. Consumption during hemodialysis is another consideration. Patient is not significantly hypotensive at this time. Subjective Subjective Patient transferred out of the intensive care unit yesterday. Patient states he feels at his baseline at this time. Patient is not reporting any chest pain, abdominal pain, nausea or vomiting. No melena or hematochezia has been repor jensen. Patient is planning on having dialysis today per routine. Objective Data Objective Data Vital Signs: Vital Signs Temp Pulse Resp BP Pulse Ox O2 Del Method O2 Flow Rate 37.0 C 95 16 145/65 H 92 Room Air 2 05/01/22 09:25 05/01/22 09:25 05/01/22 09:25 05/01/22 09:25 05/01/22 09:25 05/01/22 09:25 04/30/22 13:20 FiO2 25 04/29/22 08:57 Oxygen Flow Rate (L/min) 2 Oxygen Delivery Method Room Air Weight: 86.2 kg Body Mass Index (BMI) 27.1 Intake & Output: Intake and Output for Last 24 Hours 04/29/22 04/30/22 05/01/22 23:59 23:59 23:59 Intake Total 1693.17 / 1693.17 1147.84 / 1147.84 50 / 50 Output Total 3300 / 3300 200 / 200 Balance -1606.83 / -1606.83 947.84 / 947.84 50 / 50 Lab / Micro Data Attestation: I reviewed the patient's lab results. Result Diagrams: 05/01/22 04:22 05/01/22 04:22 Labs: Laboratory Results - last 24 hr 04/30/22 11:40: APTT 35.4 04/30/22 11:55: POC Glucose 272 H 04/30/22 13:45: Blood Type A POSITIVE, Antibody Screen NEGATIVE, Crossmatch See Detail 04/30/22 16:44: POC Glucose 243 H 04/30/22 22:00: POC Glucose 170 H 05/01/22 04:22: WBC 10.8, RBC 2.61 L, Hgb 7.4 L, Hct 24.0 L, MCV 92.0, MCH 28.4, MCHC 30.8 L, RDW Std Deviation 59.3 H, RDW Coeff of Joana 17.4 H, Plt Count 295, MPV 11.3, Immature Gran % (Auto) 1.200 H, Neut % (Auto) 68.8, Lymph % (Auto) 22.2, [place] % (Auto) 7.3, Eos % (Auto) 0.1, Baso % (Auto) 0.4, Absolute Neuts (auto) 7.5, Absolute Lymphs (auto) 2.41, Nucleated RBC % 0 05/01/22 04:22: Sodium 141, Potassium 4.9, Chloride 102, Carbon Dioxide 25.0, Anion Gap 14, BUN 75 H, Creatinine 5.72 H, Estim Creat Clear Calc 13.35, Est GFR (MDRD) Af Amer 13 L, Est GFR (MDRD) Non-Af 11 L, BUN/Creatinine Ratio 13.1, Glucose 142 H, Calcium 7.8 L 05/01/22 08:37: POC Glucose 146 H Micro: Microbiology 04/29/22 08:16 Blood Culture (Wb) - Anticubital Right Blood Culture - Preliminary No growth in 48 hours. 04/29/22 07:56 Blood Culture (Wb) - Right Wrist Blood Culture - Preliminary No growth in 48 hours. 04/29/22 22:05 Urine, Random Legionella Antigen - Final 04/29/22 22:05 Urine, Random Streptococcus pneumoniae Antigen (M - Final 04/29/22 11:28 Mucosa - Nasopharyngeal Respiratory Panel (PCR) - Final 04/29/22 08:14 Nasal Secretion SARS-CoV-2 & FLU Antigen (Rapid) - Final Rhythm Strip Rhythm Strip: Sinus Rhythm Rate: 70 Ectopy: None Physical Exam Const alert, oriented x3 and no apparent distress Constitutional Narrative: Doing well on room air General Appearance: cooperative and well developed HEENT normocephalic, head/scalp atraumatic and moist oral mucous membranes Eyes PERRL and EOMs intact bilaterally Neck full ROM, no lymphadenopathy and no JVD Chest inspection of chest normal Resp normal respiratory effort and no use of accessory muscles Effort and Inspection: able to speak in complete sentences Auscultation: clear to auscultation bilaterally and diminished lung sounds; Negative for rales, rhonchi or wheezes Percussion: Negative for dullness Cardio regular rate, regular rhythm, S1 normal heart sound, S2 normal heart sound, no murmurs, no rub and no gallops GI normal to inspection, nondistended, normoactive bowel sounds GI Narrative: Midline abdominal scar. no CVA tenderness Narrative: No suprapubic tenderness Extremity no clubbing, cyanosis or edema Skin no rashes or lesions noted Neuro oriented x3, CN's II-XII intact bilaterally, moves all extremities and no focal motor deficits Psych cooperative and affect normal Charges/Coding Visit Charges Inpatient E&M: 79045 Subs Hosp L2
[2022-05-01] MEDS: Ipratropium/Albuterol Sulfate 3 ML AMPUL.NEB INHALATION ×2 (10:53→19:18)
[2022-05-01 12:10] LABS: Bedside Glucose 189 mg/dL (74-106)
[2022-05-01] MEDS: Insulin Lispro 100 UNIT/ML INSULN.PEN SC ×2 (12:11→21:05)
--- NOTE | 2022-05-01 13:50 | PN.HOSP_ITS ---
Reason for Visit Reason for Visit: Follow-up for acute hypoxic respiratory failure and dyspnea and nondistended Diagnoses Type 2 diabetes mellitus without complications (04/29/22) Acidosis, unspecified (04/29/22) Nicotine dependence, cigarettes, uncomplicated (04/29/22) Non-ST elevation (NSTEMI) myocardial infarction (04/29/22) Ischemic cardiomyopathy (04/29/22) Hypotension, unspecified (04/29/22) Pneumonia, unspecified organism (04/29/22) Chronic obstructive pulmonary disease, unspecified (04/29/22) Acute respiratory failure with hypoxia (04/29/22) Acute respiratory failure with hypercapnia (04/29/22) End stage renal disease (04/29/22) Other specified abnormalities of plasma proteins (04/29/22) Dependence on renal dialysis (04/29/22) Subjective Subjective Shortness of breath is better. Undergoing hemodialysis. Objective Data Objective Data Vital Signs: Vital Signs Temp Pulse Resp BP Pulse Ox O2 Del Method O2 Flow Rate 98.6 F 81 19 H 145/65 H 92 Room Air 2 05/01/22 09:25 05/01/22 11:09 05/01/22 11:09 05/01/22 09:25 05/01/22 09:25 05/01/22 09:25 04/30/22 13:20 FiO2 25 04/29/22 08:57 Oxygen Flow Rate (L/min) 2 Oxygen Delivery Method Room Air Weight: 190 lb 0.615 oz Body Mass Index (BMI) 27.1 Intake & Output: Intake and Output for Last 24 Hours 04/29/22 04/30/22 05/01/22 23:59 23:59 23:59 Intake Total 1693.17 / 1693.17 1147.84 / 1147.84 530 / 530 Output Total 3300 / 3300 200 / 200 Balance -1606.83 / -1606.83 947.84 / 947.84 530 / 530 Lab / Micro Data Result Diagrams: 05/01/22 04:22 05/01/22 04:22 Labs: Laboratory Results - last 24 hr 04/30/22 13:45: Blood Type A POSITIVE, Antibody Screen NEGATIVE, Crossmatch See Detail 04/30/22 16:44: POC Glucose 243 H 04/30/22 22:00: POC Glucose 170 H 05/01/22 04:22: WBC 10.8, RBC 2.61 L, Hgb 7.4 L, Hct 24.0 L, MCV 92.0, MCH 28.4, MCHC 30.8 L, RDW Std Deviation 59.3 H, RDW Coeff of Joana 17.4 H, Plt Count 295, MPV 11.3, Immature Gran % (Auto) 1.200 H, Neut % (Auto) 68.8, Lymph % (Auto) 22.2, [place] % (Auto) 7.3, Eos % (Auto) 0.1, Baso % (Auto) 0.4, Absolute Neuts (auto) 7.5, Absolute Lymphs (auto) 2.41, Nucleated RBC % 0 05/01/22 04:22: Sodium 141, Potassium 4.9, Chloride 102, Carbon Dioxide 25.0, A nion Gap 14, BUN 75 H, Creatinine 5.72 H, Estim Creat Clear Calc 13.35, Est GFR (MDRD) Af Amer 13 L, Est GFR (MDRD) Non-Af 11 L, BUN/Creatinine Ratio 13.1, Glucose 142 H, Calcium 7.8 L 05/01/22 08:37: POC Glucose 146 H 05/01/22 11:16: POC Glucose 189 H Micro: Microbiology 05/01/22 10:07 Stool Stool Occult Blood (ИВАН) - Final Occult Blood Positive 04/29/22 08:16 Blood Culture (Wb) - Anticubital Right Blood Culture - Preliminary No growth in 48 hours. 04/29/22 07:56 Blood Culture (Wb) - Right Wrist Blood Culture - Preliminary No growth in 48 hours. 04/29/22 22:05 Urine, Random Legionella Antigen - Final 04/29/22 22:05 Urine, Random Streptococcus pneumoniae Antigen (M - Final 04/29/22 11:28 Mucosa - Nasopharyngeal Respiratory Panel (PCR) - Final 04/29/22 08:14 Nasal Secretion SARS-CoV-2 & FLU Antigen (Rapid) - Final Rhythm Strip Rhythm Strip: Sinus Rhythm Rate: 70 Ectopy: None Physical Exam Narrative Patient shortness of breath is much better. No chest pain. Undergoing hemodialysis. Hemoglobin is low. Physical exam General: Alert, Oriented x3, Cooperative HEENT: Atraumatic, PERRLA, EOMI, Normocephalic Oral: Oral mucosa moist. No Gingival or Mucosal Lesions/ Ulcerations Neck: Supple, No JVD, Negative Carotid Bruits Lungs: Air entry diminished in diffusely in all lung gamb[place]. No expiratory rhonchi or crepitations Cardiovascular: Sinus rhythm, normal S1, Normal S2, no murmur gallop or rub. Abdomen: Midline surgical abdominal scar. Bowel Sounds Present, Soft, Non Tender, Non-Distended : No renal angle tenderness. No suprapubic tenderness. Extremities: No edema, Capillary Refill Less than 3 Seconds Skin: No rashes, No breakdown Musculoskeletal: Arthritic changes in knee and hip joints. ROM full. No Tenderness to Palpation of Joints or Extremities Neurological: Cranial nerves II-XII grossly intact, DTR 2+/4 and Symmetrical. Psych/Mental Status: Flat affect. Assessment & Plan Assessment/Plan (1) Acute respiratory failure with hypoxia and hypercapnia: (2) Pneumonia: PLAN: Plan This is a 66-year-old male being admitted for sudden onset of shortness of amanda th during sleep along with dizziness and found to be hypotensive and severely hypoxic. 1. Acute sudden onset hypoxic and hypercarbic respiratory failure: Patient is being admitted in ICU. VBG 7.23//48 suggestive of acute hypoxic and hypercarbic respiratory failure. Bicarb normal 25. Exact etiology unclear but possible pulmonary embolism in view of history of malignancy, pneumonia, COPD exacerbation, non-STEMI. Pattern Attendant consulted Modified Wells criteria for PE about [address] angiogram ordered to rule out PE. 04/30: CTA was reviewed yesterday and no PE. Evidence of emphysematous changes. Patchy infiltrates at both lung bases and left upper lobe with volume loss in right upper lobe. 2. Sepsis possible due to bilateral pneumonia: The patient presented with sepsis due to bilateral pneumonia with acute sepsis-related organ dysfunction as evidenced by acute hypoxic and hypercarbic respiratory failure, hypotension responsive to IV fluid bolus, and lactic acidosis. Liver chemistry ordered. Patient has elevated creatinine from end-stage kidney disease. Hypotension has recovered. Patient on broad-spectrum IV antibiotic vancomycin and Zosyn. Chest x-ray shows bibasilar progressive infiltrate. Pneumonia work-up including blood cultures x2 ordered. Rapid SARS-CoV-2 and flu antigen are negative 05/01: Blood cultures x2 negative for 48 hours. Urinary antigens are negative. Respiratory panel negative. Microbiology Past 72 Hours 05/01/22 10:07 Stool Stool Occult Blood (ИВАН) - Final Occult Blood Positive 04/29/22 08:16 Blood Culture (Wb) - Anticubital Right Blood Culture - Preliminary No growth in 48 hours. 04/29/22 07:56 Blood Culture (Wb) - Right Wrist Blood Culture - Preliminary No growth in 48 hours. 04/29/22 22:05 Urine, Random Legionella Antigen - Final 04/29/22 22:05 Urine, Random Streptococcus pneumoniae Antigen (M - Final 04/29/22 11:28 Mucosa - Nasopharyngeal Respiratory Panel (PCR) - Final 04/29/22 08:14 Nasal Secretion SARS-CoV-2 & FLU Antigen (Rapid) - Final Laboratory Results 04/30/22 13:45: Blood Type A POSITIVE, Antibody Screen NEGATIVE, Crossmatch See Detail 04/30/22 16:44: POC Glucose 243 H 04/30/22 22:00: POC Glucose 170 H 05/01/22 04:22: WBC 10.8, RBC 2.61 L, Hgb 7.4 L, Hct 24.0 L, MCV 92.0, MCH 28.4, MCHC 30.8 L, RDW Std Deviation 59.3 H, RDW Coeff of Joana 17.4 H, Plt Count 295, MPV 11.3, Immature Gran % (Auto) 1.200 H, Neut % (Auto) 68.8, Lymph % (Auto) 22.2, [facility] % (Auto) 7.3, Eos % (Auto) 0.1, Baso % (Auto) 0.4, Absolute Neuts (auto) 7.5, Absolute Lymphs (auto) 2.41, Nucleated RBC % 0 05/01/22 04:22: Sodium 141, Potassium 4.9, Chloride 102, Carbon Dioxide 25.0, Anion Gap 14, BUN 75 H, Creatinine 5.72 H, Estim Creat Clear Calc 13.35, Est GFR (MDRD) Af Amer 13 L, Est GFR (MDRD) Non-Af 11 L, BUN/Creatinine Ratio 13.1, Glucose 142 H, Calcium 7.8 L 05/01/22 08:37: POC Glucose 146 H 05/01/22 11:16: POC Glucose 189 H Acute severe anemia on anemia of chronic disease: Hemoglobin 6.6 gram percent x2. Monitor PRBC transfusion ordered. Heparin drip is discontinued.Aspirin is on hold. Continue Plavix. 05/01: Hemoglobin 7.4. Platelet count 295,000. Immature granulocytes 1.2% present. 3. Coronary artery disease status post stent possible non-STEMI: Patient has progressively increasing high sensitive troponin. Denies any chest pain or tightness or pressure even at home. Twelve-lead EKG from EMS and ER reviewed and shows slight ST depression in V5 to V6, sinus tachycardia 121 bpm. QTc 431 ms. Chief Console Operator is consulted. 2D echo ordered. Patient started on IV heparin drip with bolus. At home patient is on aspirin, Plavix, isosorbide mononitrate, and rosuvastatin continued. Patient not on beta-tanner, SHAR or ARB probably due to severe COPD and kidney failure. 04/30: EF 50% on lower limit of normal. [place] hypokinetic. 1-2+ TR. PASP 47 mm Ministry of moderate pulmonary hypertension. Overall suggestive of mild HFrEF with pulmonary hypertension 05/01: Plan for cardiac cath tomorrow AM. Previous cardiac cath in February 2021 reported successful PCI/stent of of proximal and distal left circumflex, OM1 and mid LAD. PTCA and balloon angioplasty of proximal LAD. 4. Possible COPD exacerbation: Patient has history of COPD, right lower lobectomy seems for benign causes. On IV Solu-Medrol and bronchodilator, Mucinex, incentive spirometry and Pep ordered. 5. Colon cancer status post subtotal colectomy: Usually patient has loose bowel movement and takes Imodium. 6. ESKD on hemodialysis. Employee Communications Intern Dr. Magana is consulted. Discussed with her. 04/30: Dialysis as per construction flagger recommendation. 7. Type 2 DM: Glucose 299 BMP. Accu-Chek H&H's coverage Humalog sliding scale. Started on Lantus 20 units daily. 04/30 glucose level is high at 234. Lantus 20 was changed to twice daily. 05/01 glucose is better controlled.Lantus 20 units twice daily 8. Hypothyroidism, continue on Synthroid. 04/30: TSH is normal. 9. DVT PPx-bilateral SCDs. Clinical Impression(s) from Imaging Studies Chest X-Ray 04/29/22 08:35 IMPRESSION: Progressive bibasilar infiltrates worse on the left lung base with blunting of both gastric angles. Progressive increase in size of the nodular density in the right upper lobe. Persistent volume loss in the upper medial aspect of the right upper lobe with the displacement of the trachea to the right side of the midline. Echocardiogram 04/29/22 12:42 Interpretation Summary Normal LV size. Left ventricular systolic function is lower limits of normal. The left ventricular ejection fraction is 50 %. Pulmonary artery systolic pressure is 47 mmHg. Contrast injection was performed. Chest CTA 04/29/22 14:15 IMPRESSION: No evidence of pulmonary embolism. Patchy infiltrates as described with volume loss in the right upper lobe suggestive of scarring. Mediastinal lymphadenopathy. Electronically Signed: Herbert Carroll MD at 14:39 EST , Living will/advanced directive/end of life care: Patient does have living will or advanced directive. His son is power of special effects person for health. After dis cussion of benefits/risks procedures involved with full code, DNR CC arrest and DNR CC, the patient and his sister near the bedside, they opted for DNRCC arrest with no intubation. Patient doesn't want artificial life support including intubation, tube feed, ventilator and/chest compression, central venous catheter, vasopressor and DC shock if needed Total time spent in frco-[id number] encounter in discussion of advanced directive 16 minutes. Microbiology Past 72 Hours 04/29/22 08:14 Nasal Secretion SARS-CoV-2 & FLU Antigen (Rapid) - Final Laboratory Results 04/29/22 07:56: WBC 16.0 H, RBC 2.87 L, Hgb 8.3 L, Hct 28.4 L, MCV 99.0 H, MCH 28.9, MCHC 29.2 L, RDW Std Deviation 56.2 H, RDW Coeff of Joana 15.9 H, Plt Count 427, MPV 11.1, Immature Gran % (Auto) 1.600 H, Neut % (Auto) 73.8 H, Lymph % (Auto) 17.3 L, [facility] % (Auto) 5.8, Eos % (Auto) 0.9, Baso % (Auto) 0.6, Absolute Neuts (auto) 11.8 H, Absolute Lymphs (auto) 2.76, Nucleated RBC % 0 04/29/22 07:56: Sodium 140, Potassium 4.9, Chloride 105, Carbon Dioxide 25.0, Anion Gap 10, BUN 61 H, Creatinine 5.68 H, Estim Creat Clear Calc 13.44, Est GFR (MDRD) Af Amer 13 L, Est GFR (MDRD) Non-Af 11 L, BUN/Creatinine Ratio 10.7, Glucose 299 H, Calcium 9.1, Troponin I High Sens 269 H* 04/29/22 07:56: Lactic Acid 3.4 H* 04/29/22 07:56: Phosphorus 5.4 H, Magnesium 2.1 04/29/22 08:04: Specimen Type SHERI, VBG pH 7.23 L, VBG pO2 48 H, VBG HCO3 25, VBG Total CO2 27, VBG O2 Sat (Calc) 75 H, VBG Base Excess -3 L, POC Mix VBG pCO2 Pt Tmp 59.1 H 04/29/22 09:45: PT 13.4, INR 1.1, APTT 33.9 04/29/22 11:45: Troponin I High Sens 527 H* Clinical Impression(s) from Imaging Studies Chest X-Ray 04/29/22 08:35 IMPRESSION: Progressive bibasilar infiltrates worse on the left lung base with blunting of both gastric angles. Progressive increase in size of the nodular density in the right upper lobe. Persistent volume loss in the upper medial aspect of the right upper lobe with the displacement of the trachea to the right side of the midline. Charges/Coding Visit Charges Inpatient E&M: 56308 Subs Hosp L2
--- NOTE | 2022-05-01 15:50 | CASEMGMT ---
DEVEN SAAVEDRA NOTE: DEVEN SAAVEDRA to room. Discussed w/pt if he feels it would be helpful for someone to be involved w/his doctor appts to help ensure he is able to make it to them, as his PCP's office has stated they will not take him back if he no-shows to another appt. Pt states he thinks it may be helpful and was agreeable to this DEVEN SAAVEDRA calling his sister, Leslye, to discuss this with her. Pt also agreeable to DEVEN SAAVEDRA scheduling a f/u appt w/Dr Baptiste. Call placed to Dr Baptiste's office in [place] and appt scheduled for 05/09 @ 2 PM. This was added in discharge plan at this time. Pt was made aware. Call placed to pt's sister, Leslye. She was made aware that pt has had 2 no-shows to appts @ Dr Baptiste's office and that they stated they will not take pt back if he has another no-show. She was also made aware pt gave permission for DEVEN SAAVEDRA to contact her to see if she would be willing to be involved w/his appts to help make sure he can make it to them. Leslye states she was not aware that he has missed appts and that she is very willing to help with this. She was made aware of appt scheduled w/Dr Baptiste @ the [place] office on 05/09 @ 2 PM and states she will make sure pt is able to go to it. She thanked DEVEN SAAVEDRA for calling. She plans to come in to see pt this PM and will inquire if there is anything else he would like help with. Shirley PATHAK RN, CM
--- NOTE | 2022-05-01 17:34 | DIALYSIS ---
HD tx completed without complications. Vitals stable post treatment, fluid removed 2500ml. Verbal report given to DEVEN Pompa
[2022-05-01 17:51] LABS: Bedside Glucose 149 mg/dL (74-106)
[2022-05-01] MEDS: Atorvastatin Calcium 20 MG Tablet PO (21:04)
[2022-05-01] MEDS: diazePAM 5 MG Tablet PO (21:04)
[2022-05-01 22:16] LABS: Bedside Glucose 204 mg/dL (74-106)
[2022-05-02] VITALS (13 sets, daily range): BP systolic 94–139; BP diastolic 53–89; PULSE 68–88; RESP 16–20; TEMP 36.5–37.3; O2SAT 92–100
[2022-05-02 05:03] LABS: Absolute Lymphocyte Count 2.48 X10^3/uL (0.83-4.51); Basophil# 0.04 X10^3/uL; Basophil% 0.5 % (0-1); Eosinophil# 0.08 X10^3/uL; Eosinophils% 0.9 % (0-5); Hematocrit 25.7 % (40-54); Hemoglobin 7.8 g/dL (13.0-16.5); Lymphocyte # 2.48 X10^3/ul (0.83-4.51); Lymphocyte % 29.3 % (19-41); Mean Corp Hgb Conc 30.4 g/dL (32-36); Mean Corpuscular Hgb 28.4 pg (27.0-32.0); Mean Corpuscular Volume 93.5 fL (80-94); Mean Platelet Vol. 10.7 fl (6.2-12.0); Monocyte# 0.68 X10^3/uL; NRBC Flagged by Analyzer 0 % (0-5); Neutrophil # 5.01 X10^3/uL (2.7-7.7); Neutrophil % 59.4 % (47-70); Platelet Count 283 K/mm3 (150-450); RBC Distribution Width SD 57.7 fl (35.1-43.9); Red Blood Count 2.75 M/mm3 (4.6-6.2); White Blood Count 8.5 K/mm3 (4.4-11.0)
[2022-05-02 05:26] LABS: Anion Gap 10 (5-15); BUN 48 mg/dL (7-18); BUN/Creat Ratio 12.7 RATIO (10-20); Calcium,Total 7.8 mg/dL (8.5-10.1); Chloride 102 mmol/L (98-107); Creatinine, Serum 3.78 mg/dL (0.70-1.30); EST Glomerular Filtration Rate 17 mL/min (>60); Est Glom Filt Rate - Afr Amer 21 mL/min (>60); Glucose 92 mg/dL (74-106); Potassium 4.2 mmol/L (3.5-5.1); Sodium Level 140 mmol/L (136-145)
[2022-05-02] MEDS: Clopidogrel Bisulfate 75 MG Tablet PO (05:57)
[2022-05-02] MEDS: Isosorbide Mononitrate 30 MG Tablet 15 MG PO (05:57)
[2022-05-02] MEDS: Levothyroxine 88 MCG Tablet PO (05:57)
[2022-05-02 06:45] LABS: Bedside Glucose 103 mg/dL (74-106)
[2022-05-02] MEDS: Ipratropium/Albuterol Sulfate 3 ML AMPUL.NEB INHALATION ×2 (07:46→19:19)
--- NOTE | 2022-05-02 08:37 | PCM.PN.HOSP ---
Reason for Visit Reason for Visit: Diagnoses Type 2 diabetes mellitus without complications (04/29/22) Acidosis, unspecified (04/29/22) Nicotine dependence, cigarettes, uncomplicated (04/29/22) Non-ST elevation (NSTEMI) myocardial infarction (04/29/22) Ischemic cardiomyopathy (04/29/22) Hypotension, unspecified (04/29/22) Pneumonia, unspecified organism (04/29/22) Chronic obstructive pulmonary disease, unspecified (04/29/22) Acute respiratory failure with hypoxia (04/29/22) Acute respiratory failure with hypercapnia (04/29/22) End stage renal disease (04/29/22) Other specified abnormalities of plasma proteins (04/29/22) Dependence on renal dialysis (04/29/22) Subjective Subjective Follow-up for shortness of breath, severe anemia and non-STEMI. Multiple comorbidities including ESRD Objective Data Objective Data Vital Signs: Vital Signs Temp Pulse Resp BP Pulse Ox O2 Del Method O2 Flow Rate 97.9 F 75 18 123/72 H 92 Room Air 2 05/02/22 05:55 05/02/22 07:33 05/02/22 07:33 05/02/22 05:55 05/02/22 05:55 05/02/22 08:04 04/30/22 13:20 FiO2 25 04/29/22 08:57 Oxygen Flow Rate (L/min) 2 Oxygen Delivery Method Room Air Weight: 184 lb 8.43 oz Body Mass Index (BMI) 27.1 Intake & Output: Intake and Output for Last 24 Hours 04/30/22 05/01/22 05/02/22 23:59 23:59 23:59 Intake Total 1147.84 / 1147.84 890 / 890 50 / 50 Output Total 200 / 200 2500 / 2500 0 / 0 Balance 947.84 / 947.84 -1610 / -1610 50 / 50 Lab / Micro Data Result Diagrams: 05/02/22 04:45 05/02/22 04:45 Labs: Laboratory Results - last 24 hr 05/01/22 08:37: POC Glucose 146 H 05/01/22 11:16: POC Glucose 189 H 05/01/22 17:27: POC Glucose 149 H 05/01/22 20:45: POC Glucose 204 H 05/02/22 04:45: WBC 8.5, RBC 2.75 L, Hgb 7.8 L, Hct 25.7 L, MCV 93.5, MCH 28.4, MCHC 30.4 L, RDW Std Deviation 57.7 H, RDW Coeff of Joana 17.0 H, Plt Count 283, MPV 10.7, Immature Gran % (Auto) 1.900 H, Neut % (Auto) 59.4, Lymph % (Auto) 29.3, [place] % (Auto) 8.0, Eos % (Auto) 0.9, Baso % (Auto) 0.5, Absolute Neuts (auto) 5.0, Absolute Lymphs (auto) 2.48, Nucleated RBC % 0 05/02/22 04:45: Sodium 140, Potassium 4.2, Chloride 102, Carbon Dioxide 28.0, Anion Gap 10, BUN 48 H, Creatinine 3.78 H, Estim Creat Clear Calc 20.20, Est GFR (MDRD) Af Amer 21 L, Est GFR (MDRD) Non-Af 17 L, BUN/Creatinine Ratio 12.7, Glucose 92, Calcium 7.8 L 05/02/22 06:03: POC Glucose 103 Micro: Microbiology 05/01/22 10:07 Stool Stool Occult Blood (ИВАН) - Final Occult Blood Positive 04/29/22 08:16 Blood Culture (Wb) - Anticubital Right Blood Culture - Preliminary No growth in 48 hours. 04/29/22 07:56 Blood Culture (Wb) - Right Wrist Blood Culture - Preliminary No growth in 48 hours. 04/29/22 22:05 Urine, Random Legionella Antigen - Final 04/29/22 22:05 Urine, Random Streptococcus pneumoniae Antigen (M - Final 04/29/22 11:28 Mucosa - Nasopharyngeal Respiratory Panel (PCR) - Final 04/29/22 08:14 Nasal Secretion SARS-CoV-2 & FLU Antigen (Rapid) - Final Rhythm Strip Rhythm Strip: Sinus Rhythm Rate: 70 Ectopy: None Physical Exam Narrative Patient shortness of breath is much better. No chest pain. Hemoglobin is low but better and improved Physical exam General: Alert, Oriented x3, Cooperative HEENT: Atraumatic, PERRLA, EOMI, Normocephalic Oral: Oral mucosa moist. No Gingival or Mucosal Lesions/ Ulcerations Neck: Supple, No JVD, Negative Carotid Bruits Lungs: Air entry diminished in diffusely in all lung gamboa. No expiratory rhonchi or crepitations Cardiovascular: Sinus rhythm, normal S1, Normal S2, no murmur gallop or rub. Abdomen: Midline surgical abdominal scar. Bowel Sounds Present, Soft, Non Tender, Non-Distended : No renal angle tenderness. No suprapubic tenderness. Extremities: No edema, Capillary Refill Less than 3 Seconds Skin: No rashes, No breakdown Musculoskeletal: Arthritic changes in knee and hip joints. ROM full. No Tenderness to Palpation of Joints or Extremities Neurological: Cranial nerves II-XII grossly intact, DTR 2+/4 and Symmetrical. Psych/Mental Status: Flat affect. Assessment & Plan Assessment/Plan (1) Acute respiratory failure with hypoxia and hypercapnia: (2) Pneumonia: PLAN: Plan This is a 66-year-old male being admitted for sudden onset of shortness of breath during sleep along with dizziness and found to be hypotensive and severely hypoxic. 1. Acute sudden onset hypoxic and hypercarbic respiratory failure: Patient is being admitted in ICU. VBG 7.23//48 suggestive of acute hypoxic and hypercarbic respiratory failure. Bicarb normal 25. Exact etiology unclear but possible pulmonary embolism in view of history of malignancy, pneumonia, COPD exacerbation, non-STEMI. Ground Crewman consulted Modified Wells criteria for PE about [address] angiogram ordered to rule out PE. 04/30: CTA was reviewed yesterday and no PE. Evidence of emphysematous changes. Patchy infiltrates at both lung bases and left upper lobe with volume loss in right upper lobe. 05/02: Patient breathing is better. Currently, pulse ox 92% on room air. 2. Sepsis possible due to bilateral pneumonia: The patient presented with sepsis due to bilateral pneumonia with acute sepsis-related organ dysfunction as evidenced by acute hypoxic and hypercarbic respiratory failure, hypotension responsive to IV fluid bolus, and lactic acidosis. Liver chemistry ordered. Patient has elevated creatinine from end-stage kidney disease. Hypotension has recovered. Patient on broad-spectrum IV antibiotic vancomycin and Zosyn. Chest x-ray shows bibasilar progressive infiltrate. Pneumonia work-up including blood cultures x2 ordered. Rapid SARS-CoV-2 and flu antigen are negative 05/01: Blood cultures x2 negative for 48 hours. Urinary antigens are negative. Respiratory panel negative. Acute severe anemia on anemia of chronic disease: Hemoglobin 6.6 gram percent x2. Monitor PRBC transfusion ordered. Heparin drip is discontinued.Aspirin is on hold. Continue Plavix. 05/01: Hemoglobin 7.4. Platelet count 295,000. Immature granulocytes 1.2% present. 05/02: Hemoglobin 7.8 hematocrit 25%. Patient to continue Plavix. Not candidate for dual antiplatelet agent. 3. Coronary artery disease status post stent possible non-STEMI: Patient has progressively increasing high sensitive troponin. Denies any chest pain or tightness or pressure even at home. Twelve-lead EKG from EMS and ER reviewed and shows slight ST depression in V5 to V6, sinus tachycardia 121 bpm. QTc 431 ms. Male Impersonator is consulted. 2D echo ordered. Patient started on IV heparin drip with bolus. At home patient is on aspirin, Plavix, isosorbide mononitrate, and rosuvastatin continued. Patient not on beta-tanner, SHAR or ARB probably due to severe COPD and kidney failure. 04/30: EF 50% on lower limit of normal. [place] hypokinetic. 1-2+ TR. PASP 47 mm Ministry of moderate pulmonary hypertension. Overall suggestive of mild HFrEF with pulmonary hypertension 05/01: Plan for cardiac cath tomorrow AM. Previous cardiac cath in February 2021 reported successful PCI/stent of of proximal and distal left circumflex, OM1 and mid LAD. PTCA and balloon angioplasty of proximal LAD. 05/02: Discussed with manager financial planning. His anemia is mainly due to ESRD. Cardiac cath shows LAD in-stent 40% with mild diffuse distal disease. First OM previously stented, subtotally occluded with left to left collaterals. Nondominant RCA 99% mid segment. Plan is to continue Plavix with no aspirin. Patient was on aspirin and Plavix before but aspirin discontinued because of severe anemia. Ischemic cardiomyopathy with EF 50% with chest x-ray and CTA does not show acute pulmonary edema therefore chronic HFpEF. 4. Possible COPD exacerbation: Patient has history of COPD, right lower lobectomy seems for benign causes. On IV Solu-Medrol and bronchodilator, Mucinex, incentive spirometry and Pep ordered. 5. Colon cancer status post subtotal colectomy: Usually patient has loose bowel movement and takes Imodium. 6. ESKD on hemodialysis. Mortgage Loan Processing Clerk Dr. Magana is consulted. Discussed with her. 04/30: Dialysis as per violin repairer recommendation. 05/02: Patient will need dialysis after cardiac cath. 7. Type 2 DM: Glucose 299 BMP. Accu-Chek H&H's coverage Humalog sliding scale. Started on Lantus 20 units daily. 04/30 glucose level is high at 234. Lantus 20 was changed to twice daily. 05/01 glucose is better controlled.Lantus 20 units twice daily 05/02: Fasting glucose dropped 92, 103 in Accu-Chek. Lantus dose decreased to 15 units twice daily 8. Hypothyroidism, continue on Synthroid. 04/30: TSH is normal. 9. DVT PPx-bilateral SCDs. Clinical Impression(s) from Imaging Studies Chest X-Ray 04/29/22 08:35 IMPRESSION: Progressive bibasilar infiltrates worse on the left lung base with blunting of both gastric angles. Progressive increase in size of the nodular density in the right upper lobe. Persistent volume loss in the upper medial aspect of the right upper lobe with the displacement of the trachea to the right side of the midline. Echocardiogram 04/29/22 12:42 Interpretation Summary Normal LV size. Left ventricular systolic function is lower limits of normal. The left ventricular ejection fraction is 50 %. Pulmonary artery systolic pressure is 47 mmHg. Contrast injection was performed. Chest CTA 04/29/22 14:15 IMPRESSION: No evidence of pulmonary embolism. Patchy infiltrates as described with volume loss in the right upper lobe suggestive of scarring. Mediastinal lymphadenopathy. Electronically Signed: Herbert Carroll MD at 14:39 EST , Living will/advanced directive/end of life care: Patient does have living will or advanced directive. His son is power of welcome center attendant for health. After discussion of benefits/risks procedures involved with full code, DNR CC arrest and DNR CC, the patient and his sister near the bedside, they opted for DNRCC arrest with no intubation. Patient doesn't want artificial life support including intubation, tube feed, ventilator and/chest compression, central venous catheter, vasopressor and DC shock if needed Total time spent in [id number] encounter in discussion of advanced directive 16 minutes. Charges/Coding Visit Charges Inpatient E&M: 58557 Subs Hosp L2
[2022-05-02] MEDS: Acetaminophen 325 MG Tablet 650 MG PO (11:31)
[2022-05-02] MEDS: oxyCODONE 5 MG Tablet PO (11:31)
[2022-05-02] MEDS: 0.9% Saline Lock 10 ML Syringe IV (11:32)
[2022-05-02] MEDS: 0.9% Normal Saline 1,000 ML 15 ML IV (11:52)
--- NOTE | 2022-05-02 12:04 | NURSING ---
Called report to Johnna CARVALHO in [employer]
[2022-05-02 12:06] LABS: Bedside Glucose 95 mg/dL (74-106)
--- NOTE | 2022-05-02 14:10 | PCM.PN.REN ---
Subjective Subjective heart cath today. Placed on plavix. hgb 7.8g. Denied CP, SOB Objective Data Objective Data Vital Signs: Vital Signs Temp Pulse Resp BP Pulse Ox O2 Del Method O2 Flow Rate 97.7 F L 88 16 122/54 H 97 Room Air 2 05/02/22 11:28 05/02/22 11:28 05/02/22 11:28 05/02/22 11:28 05/02/22 11:28 05/02/22 11:28 04/30/22 13:20 FiO2 25 04/29/22 08:57 Oxygen Flow Rate (L/min) 2 Oxygen Delivery Method Room Air Weight: 83.7 kg Body Mass Index (BMI) 27.1 Intake & Output: Intake and Output for Last 24 Hours 04/30/22 05/01/22 05/02/22 23:59 23:59 23:59 Intake Total 1147.84 / 1147.84 890 / 890 50 / 50 Output Total 200 / 200 2500 / 2500 0 / 0 Balance 947.84 / 947.84 -1610 / -1610 50 / 50 Lab / Micro Data Result Diagrams: 05/02/22 04:45 05/02/22 04:45 Labs: Laboratory Results - last 24 hr 05/01/22 17:27: POC Glucose 149 H 05/01/22 20:45: POC Glucose 204 H 05/02/22 04:45: WBC 8.5, RBC 2.75 L, Hgb 7.8 L, Hct 25.7 L, MCV 93.5, MCH 28.4, MCHC 30.4 L, RDW Std Deviation 57.7 H, RDW Coeff of Joana 17.0 H, Plt Count 283, MPV 10.7, Immature Gran % (Auto) 1.900 H, Neut % (Auto) 59.4, Lymph % (Auto) 29.3, [place] % (Auto) 8.0, Eos % (Auto) 0.9, Baso % (Auto) 0.5, Absolute Neuts (auto) 5.0, Absolute Lymphs (auto) 2.48, Nucleated RBC % 0 05/02/22 04:45: Sodium 140, Potassium 4.2, Chloride 102, Carbon Dioxide 28.0, Anion Gap 10, BUN 48 H, Creatinine 3.78 H, Estim Creat Clear Calc 20.20, Est GFR (MDRD) Af Amer 21 L, Est GFR (MDRD) Non-Af 17 L, BUN/Creatinine Ratio 12.7, Glucose 92, Calcium 7.8 L 05/02/22 06:03: POC Glucose 103 05/02/22 10:55: POC Glucose 95 Micro: Microbiology 05/01/22 10:07 Stool Stool Occult Blood (ИВАН) - Final Occult Blood Positive 04/29/22 08:16 Blood Culture (Wb) - Anticubital Right Blood Culture - Preliminary No growth in 48 hours. 04/29/22 07:56 Blood Culture (Wb) - Right Wrist Blood Culture - Preliminary No growth in 48 hours. 04/29/22 22:05 Urine, Random Legionella Antigen - Final 04/29/22 22:05 Urine, Random Streptococcus pneumoniae Antigen (M - Final 04/29/22 11:28 Mucosa - Nasopharyngeal Respiratory Panel (PCR) - Final 04/29/22 08:14 Nasal Secretion SARS-CoV-2 & FLU Antigen (Rapid) - Final Rhythm Strip Rhythm Strip: Sinus Rhythm Rate: 70 Ectopy: None Physical Exam Const alert and oriented x3 Resp clear to auscultation bilaterally Cardio regular rate Extremity no clubbing, cyanosis or edema General Extremity: AV fistula Assessment & Plan Assessment/Plan (1) ESRD (end stage renal disease) on dialysis: PLAN: Dialysis Friday (2) NSTEMI (non-ST elevation myocardial infarction): PLAN: cardiology following, heart cath today (3) DM type 2 (diabetes mellitus, type 2): (4) Acute respiratory failure with hypoxia and hypercapnia: PLAN: oxygenation stable. (5) Anemia: PLAN: hgb 7.8g. prbc. REE sc x1 today
[2022-05-02] MEDS: Pantoprazole Sodium 40 MG Tablet PO ×2 (14:20→21:39)
[2022-05-02] MEDS: Finasteride 5 MG Tablet PO (14:20)
[2022-05-02] MEDS: guaiFENesin 1,200 MG Tablet 1200 MG PO ×2 (14:20→21:39)
[2022-05-02] MEDS: Escitalopram Oxalate 20 MG Tablet PO (14:20)
[2022-05-02] MEDS: Ferrous Sulfate 325 MG Tablet PO (14:21)
[2022-05-02] MEDS: Cholecalciferol (VIT D3) 25 MCG TABLET (1,000 UNITS) 50 MCG PO (14:21)
--- NOTE | 2022-05-02 14:47 | PCM.PN.CARD ---
Subjective Subjective Patient seen and evaluated and underwent cardiac catheterization today. Objective Data Vital Signs: Vital Signs Temp Pulse Resp BP Pulse Ox O2 Del Method O2 Flow Rate 97.7 F L 68 16 127/62 H 94 Room Air 2 05/02/22 11:28 05/02/22 14:30 05/02/22 14:30 05/02/22 14:30 05/02/22 14:30 05/02/22 14:30 05/02/22 14:15 FiO2 25 04/29/22 08:57 Oxygen Flow Rate (L/min) 2 Oxygen Delivery Method Room Air Weight: 184 lb 8.43 oz Body Mass Index (BMI) 27.1 Intake & Output: Intake and Output for Last 24 Hours 04/30/22 05/01/22 05/02/22 23:59 23:59 23:59 Intake Total 1147.84 / 1147.84 890 / 890 50 / 50 Output Total 200 / 200 2500 / 2500 0 / 0 Balance 947.84 / 947.84 -1610 / -1610 50 / 50 Lab / Micro Data Result Diagrams: 05/02/22 04:45 05/02/22 04:45 Labs: Laboratory Results - last 24 hr 05/01/22 17:27: POC Glucose 149 H 05/01/22 20:45: POC Glucose 204 H 05/02/22 04:45: WBC 8.5, RBC 2.75 L, Hgb 7.8 L, Hct 25.7 L, MCV 93.5, MCH 28.4, MCHC 30.4 L, RDW Std Deviation 57.7 H, RDW Coeff of Joana 17.0 H, Plt Count 283, MPV 10.7, Immature Gran % (Auto) 1.900 H, Neut % (Auto) 59.4, Lymph % (Auto) 29.3, [place] % (Auto) 8.0, Eos % (Auto) 0.9, Baso % (Auto) 0.5, Absolute Neuts (auto) 5.0, Absolute Lymphs (auto) 2.48, Nucleated RBC % 0 05/02/22 04:45: Sodium 140, Potassium 4.2, Chloride 102, Carbon Dioxide 28.0, Anion Gap 10, BUN 48 H, Creatinine 3.78 H, Estim Creat Clear Calc 20.20, Est GFR (MDRD) Af Amer 21 L, Est GFR (MDRD) Non-Af 17 L, BUN/Creatinine Ratio 12.7, Glucose 92, Calcium 7.8 L 05/02/22 06:03: POC Glucose 103 05/02/22 10:55: POC Glucose 95 Micro: Microbiology 05/01/22 10:07 Stool Stool Occult Blood (ИВАН) - Final Occult Blood Positive Rhythm Strip Rhythm Strip: Sinus Rhythm Rate: 70 Ectopy: None Cardiology Labs/Tests 05/02/22 04:45: WBC 8.5, RBC 2.75 L, Hgb 7.8 L, Hct 25.7 L, MCV 93.5, MCH 28.4, MCHC 30.4 L, Plt Count 283, MPV 10.7, Immature Gran % (Auto) 1.900 H, Neut % (Auto) 59.4, Lymph % (Auto) 29.3, [place] % (Auto) 8.0, Eos % (Auto) 0.9, Baso % (Auto) 0.5, Absolute Neuts (auto) 5.0, Nucleated RBC % 0 05/02/22 04:45: Sodium 140, Potassium 4.2, Chloride 102, Carbon Dioxide 28.0, Anion Gap 10, BUN 48 H, Creatinine 3.78 H, Est GFR (MDRD) Af Amer 21 L, Est GFR (MDRD) Non-Af 17 L, BUN/Creatinine Ratio 12.7, Glucose 92, Calcium 7.8 L Rhythm: EKG: ECHO: Stress Test: Cardiac Cath: PCI: CT Surgery: Holter monitor: EPS: PPM: CXR: Chest CT Scan: Physical Exam Const alert, oriented x3 and no apparent distress Constitutional Narrative: On nasal cannula with no conversational dyspnea. Appears older than stated age. General Appearance: cooperative and well developed HEENT normocephalic, head/scalp atraumatic and moist oral mucous membranes Eyes PERRL and EOMs intact bilaterally Neck full ROM, no lymphadenopathy and no JVD Chest inspection of chest normal Resp normal respiratory effort and no use of accessory muscles Effort and Inspection: able to speak in complete sentences Auscultation: clear to auscultation bilaterally and diminished lung sounds; Negative for rales, rhonchi or wheezes Percussion: Negative for dullness Cardio regular rate, regular rhythm, S1 normal heart sound, S2 normal heart sound, no murmurs, no rub and no gallops GI normal to inspection, nondistended, normoactive bowel sounds GI Narrative: Midline abdominal scar. no CVA tenderness Narrative: No suprapubic tenderness Extremity no clubbing, cyanosis or edema Skin no rashes or lesions noted Neuro oriented x3, CN's II-XII intact bilaterally, moves all extremities and no focal motor deficits Psych cooperative and affect normal Assessment & Plan Assessment/Plan (1) NSTEMI (non-ST elevation myocardial infarction): PLAN: He presents with shortness of breath and is noted to have a non-ST elevation myocardial infarction. He underwent a cardiac catheterization which demonstrated the following: Normal left main coronary. Left anterior descending artery previously stented with 40% in-stent stenosis and mild diffuse distal disease. Left circumflex artery previously stented and noted to be patent in the mid and distal segments. First obtuse marginal branch which was previously stented and is subtotally occluded with goes to left to left collaterals. Nondominant right coronary artery with 99% mid segment stenosis. Based on the above angiographic findings would continue with aggressive medical therapy. We will continue with Plavix with no aspirin due to his anemia. (2) Ischemic cardiomyopathy: PLAN: He does have evidence of ischemic cardiomyopathy and probable mild heart failure. His echocardiogram demonstrated ejection fraction of approximately 50% with no obvious segmental wall motion abnormalities noted. I will recommend that he continue with his dialysis at this particular time. Pending on his clinical course further recommendations will be made.
[2022-05-02] MEDS: Epoetin Alfa epbx 10,000 UNITS/ML 10000 UNIT SC (14:51)
[2022-05-02] MEDS: Insulin Glargine-YFGN 100 UNIT/ML Pen 15 UNIT SC (17:08)
--- NOTE | 2022-05-02 17:10 | CL.D_ITS ---
Patient Name: BARI KELLY Study Date: 05/02/2022 Performing: Danis Loza MD Ht: 71 inches 180.34 cm : 1955 Wt: 184.8 lbs 83.7 kg Age: 66 Gender: male BSA: 2.04 PROCEDURE(S) PERFORMED [id number])[facility] CLINICAL PROFILE AND INDICATIONS Indications: Suspected CAD Heart Failure: NYHA Class: 3, Newly Diagnosed: Yes, Heart Failure Type: Diastolic Stress/Imaging Stress/Image Study Performed: No CAD Presentations: Non-STEMI. Symptom onset Date/Time: 04/29/22 Time Not Available CONCLUSIONS Coronary artery disease with occluded first obtuse marginal branch and ghost filling of the distal vessel Previously stented left anterior descending artery which is patent with mild to moderate in-stent stenosis Previously stented left circumflex artery which is a dominant vessel with mild in-stent stenosis RECOMMENDATIONS Medical therapy DESCRIPTION OF PROCEDURE The patient arrived to the procedure lab. The risks and benefits of the procedure as well as a full description of our services here and current unavailability of surgical backup were fully explained to the patient and/or their significant other prior to the catheterization. The Timeout was completed, verifying the correct patient and procedure. The patient's procedural site was prepped and draped in the usual fashion. Local anesthetic was given subcutaneously to right radial region with Lidocaine 2%. Using a modified Seldinger technique, arterial access was obtained via the right radial artery, a 6Fr sheath was inserted. Right Coronary Artery selective angiography was then performed in multiple views using a 5 Fr. 4.0 [place] catheter. Left Coronary Artery selective angiography was performed in multiple views using a 5 Fr. 4.0 [place] catheter.The arterial sheath was pulled and a TR Band was applied for hemostasis CORONARY ANGIOGRAPHY DOMINANCE: Left Dominant LEFT HEART ASSESSMENT Left Ventricular Ejection Fraction: by Echo 50 % Depressed Left Ventricular systolic function LEFT MAIN: Mild luminal irregularities LEFT ANTERIOR DESCENDING ARTERY: This vessel was previously extensively stented and has evidence of mild to moderate in-stent stenosis of approximately 40 to 50% in the proximal to midportion. The distal vessel is mildly diseased. CIRCUMFLEX ARTERY: This vessel was extensively stented in the midsegment as well as the mid to distal segment. First obtuse marginal branch was also stented which is subtotally occluded. The rest of the circumflex artery appears to have mild disease with minimal in-stent stenosis. RIGHT CORONARY ARTERY: Nondominant vessel with 90% mid stenosis. COMPLICATIONS No Complications PROCEDURE MEDICATIONS Versed 1 mg IV Fentanyl 50 mcg IV Oxygen: 2 L/min via nasal cannula Baby Aspirin (81mg) 1 Tabs PO @ 05/02/2022 13:20:11 Heparin given IA 05/02/2022 13:44:01 Verapamil 2.5mg, Ntg 100mcgs, 3000 units of Heparin given IA 05/02/2022 13:44:01 SUMMARY OF HEMODYNAMIC DATA Time AIR REST ECG 13:17:29 Art 140/64 (91) 13:39:43 AO 142/64 (96) SA 13:43:11 Signed By Danis Loza MD On 05/02/2022 17:09:54 Danis Loza MD
[2022-05-02 17:31] LABS: Bedside Glucose 120 mg/dL (74-106)
[2022-05-02] MEDS: Atorvastatin Calcium 20 MG Tablet PO (21:39)
[2022-05-02] MEDS: Insulin Lispro 100 UNIT/ML INSULN.PEN SC (21:39)
[2022-05-02 22:15] LABS: Bedside Glucose 160 mg/dL (74-106)
[2022-05-03 03:30] VITALS: BP 93/72; PULSE 77; RESP 18; TEMP 37; O2SAT 96
[2022-05-03] MEDS: Levothyroxine 88 MCG Tablet PO (06:08)
[2022-05-03 06:30] LABS: Bedside Glucose 118 mg/dL (74-106)
[2022-05-03 06:59] VITALS: PULSE 63; RESP 18; O2SAT 98
[2022-05-03] MEDS: Ipratropium/Albuterol Sulfate 3 ML AMPUL.NEB INHALATION (07:01)
--- NOTE | 2022-05-03 07:04 | PCM.DC ---
Discharge Instructions Diet Discharge Diet: 2000 mg Sodium Diet and Renal Diet Activity Discharge Activity: Return to Normal Activity Weight Bearing Status: Weight bearing as tolerated Dressing / Incision Call your doctor if you observe: Fever of 101 or Higher, Coldness, Increased Pain, Numbness or Tingling, Change in Color, Inability to urinate, Inability to have a bowel movement, Shortness of breath, Dizziness, Fainting spells, Swelling in the ankles, Chest pain, Prolonged hiccupping, Increased palpitations (irregular heartbeat) and Calf discomfort Follow Up Care When: IN 2 WEEKS Test Results: Test results from this visit will be discussed in further detail at your follow-up appointment, if applicable. Discharge Plan Admission Admit Date/Time: 04/29/22 10:12 Primary Reason for Your Visit: Acute combined respiratory failure, sepsis due to pneumonia, NSTEMI Attending Provider: Jos Marion Primary Care Provider: Jonathan Baptiste Consulting Providers: Danis Loza ; Wellington Bonilla ; Nahun Barlow ; Chino Heller ; Juma Parisi ; Loan Navarrete NP ; Daysi Magana Discharge Orders/Prescriptions Prescriptions: New sennosides-docusate sodium [Stool Softener-Stimulant Laxat] 8.6-50 mg Tablet 2 tab PO BID Qty: 0 0RF pantoprazole 40 mg Tablet,Delayed Release (Dr/Ec) 40 mg PO BID Qty: 60 0RF Rx Instructions: 40 mg twice daily for 4 weeks and then once daily Deep Sea Nasal 0.65 % Aerosol,[place] 2 spray NASAL Q4H PRN PRN (Reason: Nasal Dryness) Qty: 0 0RF Mucus Relief ER 1,200 mg Tablet Extended Release 12hr 1,200 mg PO BID 7 Days Qty: 14 0RF levofloxacin 500 mg tablet 500 mg PO Q48H Qty: 3 0RF Continued ipratropium-albuterol 0.5 mg-3 mg(2.5 mg base)/3 mL solution for nebulization 3 ml INHALATION Q4H PRN (Reason: shortness of breath or wheezing) escitalopram oxalate [Lexapro] 20 mg tablet 20 mg PO DAILY nitroglycerin 0.4 MG tablet 0.4 mg SUBLINGUAL Q5M PRN (Reason: Chest Pain) oxycodone 5 MG tablet 5 mg PO BID PRN PRN (Reason: Pain) Label Comments: take 1 tablet by mouth twice a day if needed for pain Rx Instructions: 5-10mg finasteride 5 MG tablet 5 mg PO DAILY isosorbide mononitrate 30 MG tablet 15 mg PO DAILY diazepam 5 MG tablet 5 - 10 mg PO BID PRN (Reason: anxiety) levothyroxine 88 MCG tablet 88 mcg PO DAILY Anoro Ellipta 62.5-25 mcg/actuation blister with device 1 inh inhalation Q24H loperamide 2 mg capsule 2 mg PO Q4H PRN PRN (Reason: Constipation) Label Comments: take 1 capsule by mouth every 4 hours if needed for LOOSE STOOL albuterol sulfate 90 mcg/actuation HFA aerosol inhaler 2 puff INHALATION 4X/DAY Label Comments: inhale 2 puffs by mouth and INTO THE LUNGS four times a day rosuvastatin 10 mg tablet 10 mg PO DAILY Label Comments: take 1 tablet by mouth once daily cholecalciferol (vitamin D3) [Vitamin D3] 50 mcg (2,000 unit) capsule 2,000 unit PO DAILY Label Comments: take 2 capsules by mouth once daily clopidogrel 75 mg tablet 75 mg PO DAILY insulin lispro 100 unit/mL insulin pen See Rx Instructions .ROUTE .COMPLEX Rx Instructions: PT STATES HE TAKE TID WITH MEALS PER SLIDING SCALE. HE IS UNABLE TO PROVIDE SLIDING SCALE INFO. insulin degludec [Tresiba FlexTouch U-100] 100 unit/mL (3 mL) insulin pen 20 - 25 unit SUBCUT BID Label Comments: PT USUALLY TAKES 20-25 UNITS DEPENDING ON BLOOD SUGAR BID Changed ferrous sulfate 325 mg (65 mg iron) tablet,delayed release (DR/EC) 325 mg PO QODAY Qty: 30 0RF Label Comments: take 1 tablet by mouth once daily Held cilostazol 100 mg tablet 100 mg PO QHS Hold Instructions: Hold for hemoglobin less than 8 g%. Rx Instructions: Discontinued aspirin 81 mg tablet,delayed release (DR/EC) 81 mg PO DAILY Label Comments: take 1 tablet by mouth once daily Referrals / Follow Up: Wellington Bonilla MD [Med Staff - Active Staff] - Within 1 Month Daysi Magana DO [Med Staff - Consulting] - Within 1 Month Danis Loza MD [Med Staff - Active Staff] - Within 2 Weeks Jonathan Baptiste DO [Primary Care Provider] - 05/09/22 2:00 pm (Appt is @ the [facility]. ) Disposition Disposition (needs filled in before D/C Order can be placed): Home, Self Care
--- NOTE | 2022-05-03 07:17 | PCM.DC.SUM ---
Providers Date of Admission: 04/29/22 Date of Discharge: 05/03/22 Primary Care Physician: Dr. Jonathan Baptiste, Consultations 04/29/22 11:07 Consult: Director Of Enterprise Architecture / Pulmonary Medicine Routine Consulting Provider: Pulmonary Medicine madeline Gan Reason for Consult: acute resp failure, hypotension EMERGENT Consult: No MD Notified: Yes Date Notified: 04/29/22 Time Notified: 10:21 Method of Notification: ED Physician Initiated Consult: Nephrology Routine Consulting Provider: Daysi Magana Reason for Consult: esrd on hd EMERGENT Consult: No MD Notified: Yes Date Notified: 04/29/22 Time Notified: 10:21 Method of Notification: Text 04/29/22 12:44 Consult: Cardiology Routine Consulting Provider: Danis Loza Reason for Consult: NSTEMI EMERGENT Consult: No Notified: Yes Date Notified: 04/29/22 Time Notified: 12:45 Method of Notification: Text Reason For Visit: ACUTE RESPIRATORY FAILURE Diagnosis Discharge Diagnosis (1) Acute respiratory failure with hypoxia and hypercapnia: Status: Acute Code(s): J96.01 - Acute respiratory failure with hypoxia; J96.02 - Acute respiratory failure with hypercapnia (2) Pneumonia: Status: Acute Code(s): J18.9 - Pneumonia, unspecified organism Plan This is a 66-year-old male being admitted for sudden onset of shortness of breath during sleep along with dizziness and found to be hypotensive and severely hypoxic. 1. Acute sudden onset hypoxic and hypercarbic respiratory failure: Patient is being admitted in ICU. VBG 7.23/59/48 suggestive of acute hypoxic and hypercarbic respiratory failure. Bicarb normal 25. Exact etiology unclear but possible pulmonary embolism in view of history of malignancy, pneumonia, COPD exacerbation, non-STEMI. Director Of Enterprise Architecture consulted Modified Wells criteria for PE about [address] angiogram ordered to rule out PE. 04/30: CTA was reviewed yesterday and no PE. Evidence of emphysematous changes. Patchy infiltrates at both lung bases and left upper lobe with volume loss in right upper lobe. 05/02: Patient breathing is better. Currently, pulse ox 92% on room air. 05/03: Patient is breathing comfortably 98% on room air. No tachypnea. 2. Sepsis possible due to bilateral pneumonia: The patient presented with sepsis due to bilateral pneumonia with acute sepsis-related organ dysfunction as evidenced by acute hypoxic and hypercarbic respiratory failure, hypotension responsive to IV fluid bolus, and lactic acidosis. Liver chemistry ordered. Patient has elevated creatinine from end-stage kidney disease. Hypotension has recovered. Patient on broad-spectrum IV antibiotic vancomycin and Zosyn. Chest x-ray shows bibasilar progressive infiltrate. Pneumonia work-up including blood cultures x2 ordered. Rapid SARS-CoV-2 and flu antigen are negative 05/01: Blood cultures x2 negative for 48 hours. Urinary antigens are negative. Respiratory panel negative. 05/03: Patient is discharged on Levaquin 500 mg every 48 hours to complete a total of 7 days of antibiotic treatment. Acute severe anemia on anemia of chronic disease: Hemoglobin 6.6 gram percent x2. Monitor PRBC transfusion ordered. Heparin drip is discontinued.Aspirin is on hold. Continue Plavix. 05/01: Hemoglobin 7.4. Platelet count 295,000. Immature granulocytes 1.2% present. 05/02: Hemoglobin 7.8 hematocrit 25%. Patient to continue Plavix. Not candidate for dual antiplatelet agent. 05/03: Hemoglobin is stable. Advised to follow-up with sales account director as an outpatient. 3. Coronary artery disease status post stent possible non-STEMI: Patient has progressively increasing high sensitive troponin. Denies any chest pain or tightness or pressure even at home. Twelve-lead EKG from EMS and ER reviewed and shows slight ST depression in V5 to V6, sinus tachycardia 121 bpm. QTc 431 ms. Public Housing Manager is consulted. 2D echo ordered. Patient started on IV heparin drip with bolus. At home patient is on aspirin, Plavix, isosorbide mononitrate, and rosuvastatin continued. Patient not on beta-tanner, SHAR or ARB probably due to severe COPD and kidney failure. 04/30: EF 50% on lower limit of normal. [place] hypokinetic. 1-2+ TR. PASP 47 mm Ministry of moderate pulmonary hypertension. Overall suggestive of mild HFrEF with pulmonary hypertension 05/01: Plan for cardiac cath tomorrow AM. Previous cardiac cath in February 2021 reported successful PCI/stent of of proximal and distal left circumflex, OM1 and mid LAD. PTCA and balloon angioplasty of proximal LAD. 05/02: Discussed with mirror framer. His anemia is mainly due to ESRD. Cardiac cath shows LAD in-stent 40% with mild diffuse distal disease. First OM previously stented, subtotally occluded with left to left collaterals. Nondominant RCA 99% mid segment. Plan is to continue Plavix with no aspirin. Patient was on aspirin and Plavix before but aspirin discontinued because of severe anemia. Ischemic cardiomyopathy with EF 50% with chest x-ray and CTA does not show acute pulmonary edema therefore chronic HFpEF. 05/03: Patient on Plavix arrest as mentioned above. Hold cilostazol as patient has severe anemia and it is antiplatelet and rheology agent. 4. COPD: Patient has history of COPD, right lower lobectomy seems for benign causes. On IV Solu-Medrol and bronchodilator, Mucinex, incentive spirometry and Pep ordered. 05/03: COPD exacerbation ruled out. Steroid discontinued 5. Colon cancer status post subtotal colectomy: Usually patient has loose bowel movement and takes Imodium. 6. ESKD on hemodialysis. Glove Cleaner Dr. Magana is consulted. Discussed with her. 04/30: Dialysis as per turkey roll maker recommendation. 05/02: Patient will need dialysis after cardiac cath. 05/03: Patient discharged white kid buffer to have dialysis today. 7. Type 2 DM: Glucose 299 BMP. Accu-Chek H&H's coverage Humalog sliding scale. Started on Lantus 20 units daily. 04/30 glucose level is high at 234. Lantus 20 was changed to twice daily. 05/01 glucose is better controlled.Lantus 20 units twice daily 05/02: Fasting glucose dropped 92, 103 in Accu-Chek. Lantus dose decreased to 15 units twice daily 8. Hypothyroidism, continue on Synthroid. 04/30: TSH is normal. 9. DVT PPx-bilateral SCDs. Discharge medication reconciliation done. Discharge follow-up instructions completed. Discharge process discussed with the patient and all questions were answered to patient's satisfaction. Total time spent, exact 35 minutes on discharge meds reconciliation, examination, coordination of care with nurses and ancillary staff, review of imaging and blood test and discussion with the patient on follow-up instructions. Clinical Impression(s) from Imaging Studies Chest X-Ray 04/29/22 08:35 IMPRESSION: Progressive bibasilar infiltrates worse on the left lung base with blunting of both gastric angles. Progressive increase in size of the nodular density in the right upper lobe. Persistent volume loss in the upper medial aspect of the right upper lobe with the displacement of the trachea to the right side of the midline. Echocardiogram 04/29/22 12:42 Interpretation Summary Normal LV size. Left ventricular systolic function is lower limits of normal. The left ventricular ejection fraction is 50 %. Pulmonary artery systolic pressure is 47 mmHg. Contrast injection was performed. Chest CTA 04/29/22 14:15 IMPRESSION: No evidence of pulmonary embolism. Patchy infiltrates as described with volume loss in the right upper lobe suggestive of scarring. Mediastinal lymphadenopathy. Electronically Signed: Herbert Carroll MD at 14:39 EST , Living will/advanced directive/end of life care: Patient does have living will or advanced directive. His son is power of county attorney for health. After discussion of benefits/risks procedures involved with full code, DNR CC arrest and DNR CC, the patient and his sister near the bedside, they opted for DNRCC arrest with no intubation. Patient doesn't want artificial life support including intubation, tube feed, ventilator and/chest compression, central venous catheter, vasopressor and DC shock if needed Total time spent in [id number] encounter in discussion of advanced directive 16 minutes. Medications at Discharge Home Medications nitroglycerin 0.4 mg sublingual tablet 0.4 mg sublingual Q5M PRN Chest Pain 05/14/17 oxycodone 5 mg tablet 5 mg PO BID PRN PRN Pain 05/14/17 finasteride 5 mg tablet 5 mg PO DAILY prostate 09/15/17 isosorbide mononitrate 30 mg tablet,extended release 24 hr 15 mg PO DAILY heart 09/15/17 diazepam 5 mg tablet 5 - 10 mg PO BID PRN anxiety 05/12/18 cilostazol 100 mg tablet 100 mg PO QHS cirrulation 09/30/19 escitalopram oxalate 20 mg tablet (Lexapro) 20 mg PO DAILY depression 09/30/19 ipratropium 0.5 mg-albuterol 3 mg (2.5 mg base)/3 mL nebulization soln 3 ml inhalation Q4H PRN shortness of breath or wheezing 09/30/19 levothyroxine 88 mcg tablet 88 mcg PO DAILY thyroid 12/07/19 umeclidinium 62.5 mcg-vilanterol 25 mcg/actuation powdr for inhalation (Anoro Ellipta) 1 inh inhalation Q24H breathing 08/31/20 albuterol sulfate 90 mcg/actuation aerosol inhaler 2 puff inhalation 4X/DAY breathing 04/28/21 cholecalciferol (vitamin D3) 50 mcg (2,000 unit) capsule (Vitamin D3) 2,000 unit PO DAILY vitamin 04/28/21 loperamide 2 mg capsule 2 mg PO Q4H PRN PRN Constipation 04/28/21 rosuvastatin 10 mg tablet 10 mg PO DAILY cholesterol 04/28/21 clopidogrel 75 mg tablet 75 mg PO DAILY HEART 04/01/22 insulin degludec 100 unit/mL (3 mL) subcutaneous pen (Tresiba FlexTouch U-100 insulin) 20 - 25 unit subcut BID diabetes 04/01/22 insulin lispro 100 unit/mL subcutaneous pen See Rx Instructions .Route .COMPLEX DM 04/01/22 ferrous sulfate 325 mg (65 mg iron) tablet,delayed release 325 mg PO QODAY supplement #30 tabs 05/03/22 guaifenesin 1,200 mg tablet, extended release 12 hr (Mucus Relief ER) 1,200 mg PO BID 7 days #14 tabs 05/03/22 levofloxacin 500 mg tablet 500 mg PO Q48H #3 tabs 05/03/22 pantoprazole 40 mg tablet,delayed release 40 mg PO BID #60 tabs 05/03/22 sennosides 8.6 mg-docusate sodium 50 mg tablet (Stool Softener-Stimulant Laxative) 2 tab PO BID #0 tabs 05/03/22 sodium chloride 0.65 % nasal spray aerosol (Deep Sea Nasal) 2 spray NASAL Q4H PRN PRN Nasal Dryness #0 mL 05/03/22 Physical Exam Narrative Patient shortness of breath is much better. No dyspnea at rest no chest pain. Hemoglobin is low but gradually improving, 7.8 g%. Physical exam General: Alert, Oriented x3, Cooperative HEENT: Atraumatic, PERRLA, EOMI, Normocephalic Oral: Oral mucosa moist. No Gingival or Mucosal Lesions/ Ulcerations Neck: Supple, No JVD, Negative Carotid Bruits Lungs: Air entry diminished diffusely in all lung [place]. No expiratory rhonchi or crepitations Cardiovascular: Sinus rhythm, normal S1, Normal S2, no murmur gallop or rub. Abdomen: Midline surgical abdominal scar. Bowel Sounds Present, Soft, Non Tender, Non-Distended : No renal angle tenderness. No suprapubic tenderness. Extremities: No edema, Capillary Refill Less than 3 Seconds Skin: No rashes, No breakdown Musculoskeletal: Arthritic changes in knee and hip joints. ROM full. No Tenderness to Palpation of Joints or Extremities Neurological: Cranial nerves II-XII grossly intact, DTR 2+/4 and Symmetrical. Psych/Mental Status: Flat affect. Weight / BMI Weight Weight: 184 lb 15.485 oz Body Mass Index (BMI) 27.1 ABG / Lab / Microbiology Data Result Diagrams: 05/02/22 04:45 05/02/22 04:45 Laboratory: Laboratory Results - last 24 hr 05/02/22 10:55: POC Glucose 95 05/02/22 17:07: POC Glucose 120 H 05/02/22 21:36: POC Glucose 160 H 05/03/22 06:10: POC Glucose 118 H Microbiology: Microbiology 05/01/22 10:07 Stool Stool Occult Blood (ИВАН) - Final Occult Blood Positive 04/29/22 08:16 Blood Culture (Wb) - Anticubital Right Blood Culture - Preliminary No growth in 48 hours. 04/29/22 07:56 Blood Culture (Wb) - Right Wrist Blood Culture - Preliminary No growth in 48 hours. 04/29/22 22:05 Urine, Random Legionella Antigen - Final 04/29/22 22:05 Urine, Random Streptococcus pneumoniae Antigen (M - Final 04/29/22 11:28 Mucosa - Nasopharyngeal Respiratory Panel (PCR) - Final 04/29/22 08:14 Nasal Secretion SARS-CoV-2 & FLU Antigen (Rapid) - Final D/C Instructions Discharge Diet: 2000 mg Sodium Diet and Renal Diet Weight Bearing Status: Weight bearing as tolerated Call your doctor if you observe: Fever of 101 or Higher, Coldness, Increased Pain, Numbness or Tingling, Change in Color, Inability to urinate, Inability to have a bowel movement, Shortness of breath, Dizziness, Fainting spells, Swelling in the ankles, Chest pain, Prolonged hiccupping, Increased palpitations (irregular heartbeat) and Calf discomfort When: IN 2 WEEKS Meaningful Use Info Meaningful Use Diagnoses (Choose all that apply): None applicable Discharge Plan Admission Admit Date/Time: 04/29/22 10:12 Primary Reason for Your Visit: Acute combined respiratory failure, sepsis due to pneumonia, NSTEMI Attending Provider: Jos Marion Primary Care Provider: Jonathan Baptiste Consulting Providers: Danis Loza ; Wellington Bonilla ; Nahun Barlow ; Chino Heller ; Juma Parisi ; Loan Navarrete NP ; Daysi Magana Discharge Orders/Prescriptions Prescriptions: New sennosides-docusate sodium [Stool Softener-Stimulant Laxat] 8.6-50 mg Tablet 2 tab PO BID Qty: 0 0RF pantoprazole 40 mg Tablet,Delayed Release (Dr/Ec) 40 mg PO BID Qty: 60 0RF Rx Instructions: 40 mg twice daily for 4 weeks and then once daily Deep Sea Nasal 0.65 % Aerosol,[place] 2 spray NASAL Q4H PRN PRN (Reason: Nasal Dryness) Qty: 0 0RF Mucus Relief ER 1,200 mg Tablet Extended Release 12hr 1,200 mg PO BID 7 Days Qty: 14 0RF levofloxacin 500 mg tablet 500 mg PO Q48H Qty: 3 0RF Continued ipratropium-albuterol 0.5 mg-3 mg(2.5 mg base)/3 mL solution for nebulization 3 ml INHALATION Q4H PRN (Reason: shortness of breath or wheezing) escitalopram oxalate [Lexapro] 20 mg tablet 20 mg PO DAILY nitroglycerin 0.4 MG tablet 0.4 mg SUBLINGUAL Q5M PRN (Reason: Chest Pain) oxycodone 5 MG tablet 5 mg PO BID PRN PRN (Reason: Pain) Label Comments: take 1 tablet by mouth twice a day if needed for pain Rx Instructions: 5-10mg finasteride 5 MG tablet 5 mg PO DAILY isosorbide mononitrate 30 MG tablet 15 mg PO DAILY diazepam 5 MG tablet 5 - 10 mg PO BID PRN (Reason: anxiety) levothyroxine 88 MCG tablet 88 mcg PO DAILY Anoro Ellipta 62.5-25 mcg/actuation blister with device 1 inh inhalation Q24H loperamide 2 mg capsule 2 mg PO Q4H PRN PRN (Reason: Constipation) Label Comments: take 1 capsule by mouth every 4 hours if needed for LOOSE STOOL albuterol sulfate 90 mcg/actuation HFA aerosol inhaler 2 puff INHALATION 4X/DAY Label Comments: inhale 2 puffs by mouth and INTO THE LUNGS four times a day rosuvastatin 10 mg tablet 10 mg PO DAILY Label Comments: take 1 tablet by mouth once daily cholecalciferol (vitamin D3) [Vitamin D3] 50 mcg (2,000 unit) capsule 2,000 unit PO DAILY Label Comments: take 2 capsules by mouth once daily clopidogrel 75 mg tablet 75 mg PO DAILY insulin lispro 100 unit/mL insulin pen See Rx Instructions .ROUTE .COMPLEX Rx Instructions: PT STATES HE TAKE TID WITH MEALS PER SLIDING SCALE. HE IS UNABLE TO PROVIDE SLIDING SCALE INFO. insulin degludec [Tresiba FlexTouch U-100] 100 unit/mL (3 mL) insulin pen 20 - 25 unit SUBCUT BID Label Comments: PT USUALLY TAKES 20-25 UNITS DEPENDING ON BLOOD SUGAR BID Changed ferrous sulfate 325 mg (65 mg iron) tablet,delayed release (DR/EC) 325 mg PO QODAY Qty: 30 0RF Label Comments: take 1 tablet by mouth once daily Held cilostazol 100 mg tablet 100 mg PO QHS Hold Instructions: Hold for hemoglobin less than 8 g%. Rx Instructions: Discontinued aspirin 81 mg tablet,delayed release (DR/EC) 81 mg PO DAILY Label Comments: take 1 tablet by mouth once daily Referrals / Follow Up: Wellington Bonilla MD [Med Staff - Active Staff] - Within 1 Month aDysi Magana DO [Med Staff - Consulting] - Within 1 Month Danis Loza MD [Med Staff - Active Staff] - Within 2 Weeks Jonathan Baptiste DO [Primary Care Provider] - 05/09/22 2:00 pm (Appt is @ the [place] office. ) Zane Teresa DO [Med Staff - Active Staff] - Within 2 Weeks Disposition Disposition (needs filled in before D/C Order can be placed): Home, Self Care Charges/Coding Visit Charges Inpatient E&M: 84196 Disch Hosp >30min
[2022-05-03 07:31] VITALS: BP 129/91; PULSE 100; RESP 18; TEMP 36.7; O2SAT 98
--- NOTE | 2022-05-14 14:14 | CCN.REFER ---
Unable to connect with Patient to discuss CCN. VM left on 05/10, 05/10, and 05/13.
== END 2022-05-03 07:48 | disposition home or self-care (01) | DRG 871 ==
LOC: ED 10:15 → ICU 10:36 → PCU 04-30 18:46
PROVIDERS: Internal Medicine Critical Care Medicine; Admitting Provider Internal Medicine; Emergency Provider Emergency Medicine; PCP Student in an Organized Health Care Education/Training Program; Visit Provider Internal Medicine
DX: A41.9 Sepsis, unspecified organism (principal); N18.6 End stage renal disease; J96.01 Acute respiratory failure with hypoxia; I21.4 Non-ST elevation (NSTEMI) myocardial infarction; J18.9 Pneumonia, unspecified organism; J96.02 Acute respiratory failure with hypercapnia; I13.2 Hypertensive heart and chronic kidney disease with heart failure and with stage 5 chronic kidney disease, or end stage renal disease; J44.0 Chronic obstructive pulmonary disease with (acute) lower respiratory infection; I50.22 Chronic systolic (congestive) heart failure; J44.1 Chronic obstructive pulmonary disease with (acute) exacerbation; T82.855A Stenosis of coronary artery stent, initial encounter; I27.20 Pulmonary hypertension, unspecified; D63.1 Anemia in chronic kidney disease; I95.9 Hypotension, unspecified; Z99.2 Dependence on renal dialysis; E11.22 Type 2 diabetes mellitus with diabetic chronic kidney disease; Z79.4 Long term (current) use of insulin; I48.0 Paroxysmal atrial fibrillation; I25.10 Atherosclerotic heart disease of native coronary artery without angina pectoris; F17.210 Nicotine dependence, cigarettes, uncomplicated; E78.00 Pure hypercholesterolemia, unspecified; I25.5 Ischemic cardiomyopathy; G47.33 Obstructive sleep apnea (adult) (pediatric); E03.9 Hypothyroidism, unspecified; Z95.5 Presence of coronary angioplasty implant and graft; Z79.02 Long term (current) use of antithrombotics/antiplatelets; Z79.82 Long term (current) use of aspirin; Z66 Do not resuscitate; Z91.199 Patient's noncompliance with other medical treatment and regimen due to unspecified reason; Z20.822 Contact with and (suspected) exposure to COVID-19; Z99.81 Dependence on supplemental oxygen; Z90.2 Acquired absence of lung [part of]
CPT/HCPCS: 36415; 71045; 71275; 80048; 82274; 82803; 82962; 83605; 83735; 84100; 84443; 84484; 85025; 85610; 85730; 86850; 86900; 86901; 86920; 86922; 87040; 87428; 87449; 87633; 90937; 93005; 93306; 93454; 94002; 94640; 94668; 99152; 99252; 99285; 99406; J2185; J7030; J7050; P9016; Q9957; Q9967; A4216; C1769; C1894; C8929; G0257; G0463; J0744; Q5106

== ENCOUNTER → 2022-05-28 | Outpatient (CLI) | payer MEDICARE, MEDICAID, SELFPAY ==
--- NOTE | 2022-05-28 10:07 | CDU_ITS ---
Reason For Study: Hollenhorst Plaque Rt. Velocities/BP Lt. Velocities/BP Prox CCA 56.3/10.0 cm/sec. Prox CCA 114.3/19.4 cm/sec. Mid CCA 62.9/10.0 cm/sec. Mid CCA 99.7/12.1 cm/sec. Dist CCA 52.5/12.8 cm/sec. Dist CCA 94.2/13.9 cm/sec. Prox ICA 85.3/19.3 cm/sec. Prox ICA 124.2/18.9 cm/sec. Mid ICA 62.1/20.2 cm/sec. Mid ICA 84.2/16.7 cm/sec. Dist ICA 59.0/17.1 cm/sec. Dist ICA 56.4/17.1 cm/sec. Rt. ICA/CCA = 1.4. Lt. ICA/CCA = 1.2. Prox ECA 335.8/45.5 cm/sec. Prox ECA 176.9/12.3 cm/sec. Rt. Vert. 43.8/16.1 cm/sec. Lt. Vert. 16.8/2.6 cm/sec. Right Extracranial There is homogeneous, smooth atherosclerotic plaque noted in the right common carotid artery. There is heterogeneous, irregular atherosclerotic plaque noted in the right internal carotid artery. The atherosclerotic plaque causes acoustic shadowing. There is heterogeneous, irregular atherosclerotic plaque noted in the right external carotid artery. Antegrade flow is noted in the right vertebral artery. Left Extracranial There is homogeneous, smooth atherosclerotic plaque noted in the left common carotid artery. There is heterogeneous, irregular atherosclerotic plaque noted in the left internal carotid artery. There is heterogeneous, irregular atherosclerotic plaque noted in the left external carotid artery. Antegrade flow is noted in the left vertebral artery. Biphasic flow is noted in the left vertebral artery. Procedure Carotid Duplex 35108. This is a Carotid Duplex examination using B-mode, color flow and specral Doppler. The exam was diagnostic. Exam performed in department. VL/Carotid Duplex Ultrasound Interpretation Summary Mild (<50%) stenosis right extracranial internal carotid. Mild (<50%) stenosis left extracranial internal carotid. The Right vertebral is patent and antegrade. The Left vertebral is patent with high resistance antegrade flow Ordering Physician: Jonatan Hawk Referring Physician: Jonatan Hawk Performed By: Gregory Johnson RVT
== END | disposition home or self-care (01) ==
PROVIDERS: PCP Student in an Organized Health Care Education/Training Program; Referring Provider Ophthalmology; Visit Provider Ophthalmology
DX: H34.211 Partial retinal artery occlusion, right eye (principal)
CPT/HCPCS: 93880

== ENCOUNTER → 2022-07-23 | Outpatient (CLI) | payer MEDICARE, MEDICAID, SELFPAY ==
[2022-07-23 12:21] LABS: Hematocrit 40.7 % (40-54); Hemoglobin 12.7 g/dL (13.0-16.5); Mean Corp Hgb Conc 31.2 g/dL (32-36); Mean Corpuscular Hgb 28.3 pg (27.0-32.0); Mean Corpuscular Volume 90.8 fL (80-94); Platelet Count 244 K/mm3 (150-450); RBC Distribution Width CV 14.3 % (11.6-14.6); RBC Distribution Width SD 48.2 fl (35.1-43.9); Red Blood Count 4.48 M/mm3 (4.6-6.2); White Blood Count 9.5 K/mm3 (4.4-11.0)
[2022-07-23 12:59] LABS: Hemoglobin A1c 6.6 % (3.8-5.6)
[2022-07-23 13:01] LABS: Cholesterol 188 mg/dL (200); Ferritin 334 ng/mL (26-388); High Density Lipoprotein 42 mg/dL; Phosphorus 3.3 mg/dL (2.5-4.9); T4 Free Direct 1.21 ng/dL (0.76-1.46); Thyroid Stim Hormone (TSH) 0.89 uIU/mL (0.358-3.74); Triglycerides 220 mg/dL; Uric Acid 4.4 mg/dL (3.5-7.2); Very Low Density Lipoprotein 44 mg/dL (5-40)
[2022-07-23 13:49] LABS: Hepatitis C Antibody Non-Reactive (Nonreactive); Vitamin D,25 Hydroxy 75.8 ng/mL
== END | disposition home or self-care (01) ==
PROVIDERS: PCP Student in an Organized Health Care Education/Training Program; Referring Provider Student in an Organized Health Care Education/Training Program; Visit Provider Student in an Organized Health Care Education/Training Program
DX: I10 Essential (primary) hypertension (principal); E11.21 Type 2 diabetes mellitus with diabetic nephropathy; E55.9 Vitamin D deficiency, unspecified; Z11.59 Encounter for screening for other viral diseases; E03.9 Hypothyroidism, unspecified; M10.9 Gout, unspecified; Z12.5 Encounter for screening for malignant neoplasm of prostate; D50.9 Iron deficiency anemia, unspecified
CPT/HCPCS: 36415; 80061; 82043; 82306; 82570; 82728; 83036; 84100; 84153; 84439; 84443; 84550; 85027; 86803; G0103

== ENCOUNTER 2023-04-23 07:05 | Inpatient (IN) | payer MEDICARE, MEDICAID, SELFPAY ==
[2023-04-23] VITALS (23 sets, daily range): BP systolic 97–220; BP diastolic 56–93; PULSE 75–102; RESP 14–20; TEMP 36.3–36.8; O2SAT 2–100; BMI 25.4; BMI 26.9; BMI 27.0; BMI 26.4
--- NOTE | 2023-04-23 07:17 | EX.ED.DYSGE1 ---
HPI History of Present Illness Chief Complaint: Abn Labs Informant: patient Narrative Narrative: Patient presents with low hemoglobin as an outpatient. Patient has had some black stools for about a week. He always has soft stools almost diarrhea because he had a subtotal colectomy about 4 years ago for localized colon cancer. This required no radiation or chemotherapy and is considered cured. He states he feels fine and is not lightheaded or dizzy. But he had outpatient blood work and was called this morning to come to the emergency department due to low hemoglobins. He does not know what that level was or what his normal is. He did receive a transfusion once about 4 years ago after his colon surgery but no other time. No colonoscopy since his surgery. He is on Plavix. This patient also has had subtotal removal of the right lung. This was done 15 years ago. He is not sure exactly what the cause was but it required no chemo or radiation. He is not sure if it was even cancer. [facility] Medical History (Updated 04/23/23 @ 08:[address] Sher Vazquez MD) Acute HFrEF (heart failure with reduced ejection fraction) Acute respiratory failure with hypoxemia Anemia of chronic renal failure Anxiety Atherosclerosis of coronary artery of telida heart without angina pectoris Back pain C. difficile colitis Cancer Cholelithiasis Chronic renal failure, stage 4 (severe) Colon cancer COPD (chronic obstructive pulmonary disease) CPAP (continuous positive airway pressure) dependence Depression DM type 2 causing CKD stage 4 Elevated troponin Former smoker Gastric reflux Gout Heme + stool Hemorrhoids High cholesterol History of GI bleed History of IBS Hyperkalemia, diminished renal excretion Hyperlipidemia Hypertension Hyponatremia Hypotension, unspecified Increased PTH level Infectious encephalopathy Iron deficiency anemia Ischemic cardiomyopathy Low vitamin D level Lower GI bleed Metabolic acidosis Myocardial infarct Nocturnal hypoxia Non-STEMI (non-ST elevated myocardial infarction) Noncompliance with CPAP treatment NSAID long-term use NSTEMI (non-ST elevated myocardial infarction) (07/2018) NSVT (nonsustained ventricular tachycardia) On home oxygen therapy LADARIUS (obstructive sleep apnea) Paroxysmal atrial fibrillation Peripheral vascular disease Pseudomembranous enterocolitis Radiculopathy affecting upper extremity Septic shock Severe sepsis Shortness of breath on exertion Skin tear Sleep apnea Stage 3 severe COPD by GOLD classification Streptococcal pneumonia Uremia of renal origin Urinary retention due to benign prostatic hyperplasia Wears dentures Home Medications oxycodone 5 mg tablet 5 mg PO BID PRN PRN Pain 05/14/17 [History Last Taken 04/28/22] finasteride 5 mg tablet 5 mg PO DAILY prostate 09/15/17 [History Last Taken 04/28/22] isosorbide mononitrate 30 mg tablet,extended release 24 hr 15 mg PO DAILY heart 09/15/17 [History Last Taken 04/28/22] diazepam 5 mg tablet 5 - 10 mg PO BID PRN anxiety 05/12/18 [History Last Taken 04/29/22] escitalopram oxalate 20 mg tablet (Lexapro) 20 mg PO DAILY depression 09/30/19 [History Last Taken 04/28/22] ipratropium 0.5 mg-albuterol 3 mg (2.5 mg base)/3 mL nebulization soln 3 ml inhalation Q4H PRN shortness of breath or wheezing 09/30/19 [History Last Taken 04/28/22] levothyroxine 88 mcg tablet 88 mcg PO DAILY thyroid 12/07/19 [History Last Taken 04/28/22] albuterol sulfate 90 mcg/actuation aerosol inhaler 2 puff inhalation 4X/DAY breathing 04/28/21 [History Last Taken 04/29/22] cholecalciferol (vitamin D3) 50 mcg (2,000 unit) capsule (Vitamin D3) 2,000 unit PO DAILY vitamin 04/28/21 [History Last Taken 04/28/22] loperamide 2 mg capsule 2 mg PO Q4H PRN PRN Constipation 04/28/21 [History Last Taken 04/26/22] rosuvastatin 10 mg tablet 10 mg PO DAILY cholesterol 04/28/21 [History Last Taken 04/28/22] clopidogrel 75 mg tablet 75 mg PO DAILY HEART 04/01/22 [History Last Taken 04/28/22] insulin degludec 100 unit/mL (3 mL) subcutaneous pen (Tresiba FlexTouch U-100 insulin) 20 - 25 unit subcut BID diabetes 04/01/22 [History Last Taken 04/29/22] insulin lispro 100 unit/mL subcutaneous pen See Rx Instructions .Route .COMPLEX DM 04/01/22 [History Last Taken 04/29/22] ferrous sulfate 325 mg (65 mg iron) tablet,delayed release 325 mg PO QODAY supplement #30 tabs 05/03/22 [Rx Last Taken 04/28/22] pantoprazole 40 mg tablet,delayed release 40 mg PO BID #60 tabs 05/03/22 [Rx Last Taken Unknown] sennosides 8.6 mg-docusate sodium 50 mg tablet (Stool Softener-Stimulant Laxative) 2 tab PO BID #0 tabs 05/03/22 [Rx Last Taken Unknown] sodium chloride 0.65 % nasal spray aerosol (Deep Sea Nasal) 2 spray NASAL Q4H PRN PRN Nasal Dryness #0 mL 05/03/22 [Rx Last Taken Unknown] guaifenesin 1,200 mg tablet, extended release 12 hr (Mucus Relief ER) 1,200 mg PO BID #60 tabs 09/10/22 [Rx Last Taken Unknown] nitroglycerin 0.4 mg sublingual tablet 0.4 mg sublingual Q5M PRN Chest Pain #25 tabs 11/21/22 [Rx Last Taken Unknown] fluticasone fur. 200 mcg-umeclid 62.5 mcg-vilant 25 mcg inhalat.powder (Trelegy Ellipta) 1 inh inhalation DAILY #60 ea 04/07/23 [Rx Last Taken Unknown] Allergy/AdvReac Type Severity Reaction Status Date / Time No Known Allergies Allergy Verified 04/23/23 07:06 Family History Father Leukemia Mother COPD (chronic obstructive pulmonary disease) Surgical History H/O colectomy H/O pneumonectomy History of coronary artery stent placement (02/28/21) History of esophagogastroduodenoscopy (EGD) History of left heart catheterization (02/27/21) Hx of craniotomy S/P arteriovenous (AV) fistula creation Status post colon resection Status post insertion of dialysis catheter (07/2018) Social History household members: spouse housing: other details: mobile home current occupational status: disabled pets and animals: Yes pets and animals: dog(s) Smoking Status: Current every day smoker tobacco type: cigarettes Tobacco: How many years used: 40 second hand exposure: No alcohol intake: never substance use type: does not use ROS ROS ED Constitutional Constitutional ED: Denies chills, fever(s) or weight loss Eyes Eyes: Denies change in vision Cardiovascular Cardiovascular: Denies chest pain, palpitations or racing heartbeat Respiratory/Chest Respiratory/Chest: Denies cough or dyspnea Gastrointestinal Gastrointestinal: Reports diarrhea and melena; Denies abdominal pain, constipation, nausea or vomiting Genitourinary Genitourinary ED: Denies hematuria Musculoskeletal Musculoskeletal: Denies myalgias Integumentary Denies rash Neurologic Neurologic: Denies headache(s) Psychiatric Psychiatric: Reports anxiety Hematologic/Lymphatic Hematologic/Lymphatic: Reports easy bleeding and easy bruising Allergic/Immunologic Allergic/Immunologic ED: Denies urticaria EXAM Physical Exam Narrative Exam Narrative: CONSTITUTIONAL: Patient is nontoxic in appearance. The patient looks comfortable. He carries on a normal conversation. Very pleasant. But he does look pale. HEENT: No notable trauma. Mucous membranes moist. EYES: Positive pallor. CARDIOVASCULAR: Mildly tachycardic rate. Regular rhythm. No notable murmur. No JVD. RESPIRATORY: No respiratory distress. Breathing is unlabored. Saturations are normal on 100% on room air showing no hypoxia. GASTROINTESTINAL: Not distended. Bowel sounds are normal. No tenderness. No guarding. No rebound. No palpable mass. No bruit. GENITOURINARY: No tenderness over the bladder. No CVA tenderness. MUSCULOSKELETAL: Atraumatic. Fistula left upper medial arm with good thrill. NEUROLOGICAL: Patient is alert and appropriate. No focal deficit noted. SKIN: Positive pallor. Mild bruising on forearm. PSYCHIATRIC: Patient is calm. Mood is appropriate. Const Vital Signs: 04/23/23 07:06 04/23/23 07:32 Temperature 97.6 F L Temperature Source Temporal Pulse Rate 102 H Respiratory Rate 20 H Respiratory Pattern Tachypnea Blood Pressure 106/56 L Blood Pressure Mean 72 Pulse Ox 100 Oxygen Delivery Method Room Air MDM MDM MDM Narrative Medical decision making narrative: I went back in to do rectal exam. He has many hemorrhoids but they do not look inflamed. Stool was very dark but was not black on exam. We did do I fob that is positive for blood as was expected. I talked with the patient further. He states he feels fine. But then he states that he notices that he has less energy. He has been getting more winded walking the length of his trailer. If he stands up for a long time he feels slightly lightheaded. This is more consistent with his blood loss. He does not note a change in color of his skin although he does look pale. CBC shows significant anemia that is new with a hemoglobin of 5.2. Platelets and white count are normal. INR is normal at 1.2. PTT is slightly high at 36.8. Basic metabolic panel shows findings consistent with his chronic renal failure. Liver function test shows no marked abnormalities. I discussed case with hospitalist. I also have a call out to gastroenterology. Patient will be admitted. We have orthostatics pending but he is stable and comfortable in bed. He was up walking around at home. I think PCU is appropriate. Lab Data Attestation: I reviewed the patient's lab results. Labs: Laboratory Results - last 24 hr 04/23/23 07:59 WBC 8.4 RBC 1.75 L Hgb 5.2 L* Hct 18.2 L MCV 104.0 H MCH 29.7 MCHC 28.6 L RDW Std Deviation 66.2 H RDW Coeff of Joana 18.3 H Plt Count 239 MPV 12.3 H Immature Gran % (Auto) 0.500 Neut % (Auto) 82.1 H Lymph % (Auto) 10.4 L Meeker % (Auto) 5.7 Eos % (Auto) 0.8 Baso % (Auto) 0.5 Absolute Neuts (auto) 6.9 Absolute Lymphs (auto) 0.87 Nucleated RBC % 0 Differential Comment SCANNED Diff Path Review May foll Anisocytosis 2+ PT 14.9 INR 1.2 APTT 36.8 H Sodium 136 Potassium 3.9 Chloride 101 Carbon Dioxide 26.0 Anion Gap 9 BUN 54 H Creatinine 7.24 H Estim Creat Clear Calc 10.40 Est GFR (MDRD) Af Amer 10 L Est GFR (MDRD) Non-Af 8 L BUN/Creatinine Ratio 7.5 L Glucose 225 H Calcium 8.0 L Total Bilirubin 0.20 AST 5 L ALT 14 L Alkaline Phosphatase 122 H Total Protein 6.1 L Albumin 2.8 L Globulin 3.3 Albumin/Globulin Ratio 0.8 L Crossmatch See Detail EKG Initial EKG: Comments: My independent interpretation of the patient's EKG shows normal sinus rhythm with a rate just at 100. No ectopy. Nonspecific ST and T wave change but no sign of acute infarct or ischemia. IN interval, QRS duration are normal. QTc is a little toward the longer end at 479 ms. This is similar to EKG done 02 May 2022. Management Discussion w/another healthcare provider: Hospitalist and [employer] Supervisor Discharge Plan Dx/Rx/DC Orders Clinical Impression: Acute anemia, History of colon cancer, History of coronary artery disease, Acute upper GI bleed, Chronic kidney disease on chronic dialysis Disposition Disposition: Acute Care Hospital [facility]
--- OUTSIDE RECORDS SUMMARY | 2023-04-23 08:12 | XMS RPT_ITS | CCD ---
Author Name Unknown Address [address] [facility] [address] [place] [address] Organization [facility] Care Team Providers Care School Bus Driver/Custodian Name Role Phone INES STAUFFER DO Primary Care Physician [phone] INES STAUFFER DO Attending Unavailable INES STAUFFER DO Primary Care Unavailable INES STAUFFER DO Attending Unavailable INES STAUFFER DO Primary Care Unavailable GISEL ASIF, MARIANA Admitting Unavailable GISEL ASIF, MARIANA Attending Unavailable INES STAUFFER DO Primary Care Unavailable JULIANNE ASIF, NIK Lopez Consulting Unavailable ERNST AMIN, KENTON Shabazz Consulting Unavailremington SAVAGE MD, JAISON Sheffield Attending Unavailab le INES STAUFFER DO Primary Care Unavailable MARIANA BATRES MD Consulting Unavailable INES STAUFFER DO Attending Unavailable INES STAUFFER DO Primary Care Unavailable Medications Current Medications Medication Drug Class(es) Dates Sig (Normalized) Sig (Original) albuterol 0.83 mg/ml inhalation solution (4 sources) beta2-Adrenergic Agonist Start: 03-13-2022 End: 09-09-2022 take 1 dose by inhalation every four hours as needed albuterol 2.5 mg/3 mL (0.083%) inhalation solution Dose : 2.5 mg = 3 mL, Inhalation, q4h, PRN as needed for wheezing, # 360 mL, 5 Refill(s), Pharmacy: [facility], 180.5, cm, 01/17/22 15:18:00 EDT, Height, kg, 01/17/22 15:18:00 EDT, Dosing Weight Start Date: 03/13/22 Stop Date: 09/09/22 Status: Ordered Completed/Discontinued Medications Medication Drug Class(es) Dates Sig (Normalized) Sig (Original) amiodarone hydrochloride 200 mg oral tablet (1 source) Antiarrhythmic Start: 04-02-2021 End: 05-02-2021 amiodarone 200 mg oral tablet Dose : 200 mg = 1 tab(s), Oral, qDay, needs to get further refills from cardiology, # 30 tab(s), 0 Refill(s), [facility]: [facility] [address] 179, cm, 04/02/21 7:25:00 EST, Height, kg, 04/02/21 7:25:00 EST, Dosing Weight Start Date: 04/02/21 Stop Date: 05/02/21 Status: Ordered Anoro Ellipta 62.5 mcg-25 mcg/inh inhalation powder (4 sources) Start: 08-24-2021 End: 02-20-2022 take 1 dose by inhalation once daily Anoro Ellipta 62.5 mcg-25 mcg/inh inhalation powder Dose = 1 puff(s), Inhalation, qDay, # 3 EA, 1 Refill(s), [facility] [facility]5, cm, 08/24/21 13:58:00 EDT, Height, kg, 08/24/21 13:58:00 EDT, Dosing Weight Start Date: 08/24/21 Stop Date: 02/20/22 Status: Ordered 3 ml insulin degludec 100 unt/ml pen injector (2 sources) Insulin Analog Start: 08-24-2021 End: 02-20-2022 inject 1 dose by subcutaneous injection twice daily Tresiba FlexTouch 100 units/mL 3 mL subcutaneous solution Dose : 30 unit(s) =, Subcutaneous, BID, # 18 mL, 1 Refill(s), [facility] [facility]5, cm, 08/24/21 13:58:00 EDT, Height, kg, 08/24/21 13:58:00 EDT, Dosing Weight Start Date: 08/24/21 Stop Date: 02/20/22 Status: Ordered 3 ml insulin lispro 100 unt/ml pen injector (4 sources) Insulin Analog Start: 09-05-2021 End: 03-04-2022 inject 1 dose by subcutaneous injection three times daily HumaLOG KwikPen 100 units/mL injectable PEN Dose : 25 unit(s) =, Subcutaneous, TID, discontinue novolog, # 24 mL, 1 Refill(s), 3 mL PEN, Pharmacy: [facility] [address] 179.5, cm, 08/24/21 13:58:00 EDT, Height Start Date: 09/05/21 Stop Date: 03/04/22 Status: Ordered Problems Problem Classification Problem Date Documented Date Episodic/Chronic Anxiety disorders (10 sources) Anxiety; Translations: [Panic attack] Onset: 3 04-30-2019 Chronic Cancer of colon (4 sources) Malignant tumor of hepatic flexure 04-30-2019 Chronic Cardiac dysrhythmias (4 sources) Paroxysmal atrial fibrillation 04-30-2019 Chronic Chronic kidney disease (8 sources) Chronic kidney disease stage 5; Translations: [Dependence on renal dialysis] 05-10-2021 Chronic Chronic obstructive pulmonary disease and bronchiectasis (4 sources) Pulmonary emphysema 12-30-2018 Chronic Congestive heart failure; nonhypertensive (4 sources) Congestive heart failure 04-30-2019 Chronic Coronary atherosclerosis and other heart disease (4 sources) Coronary arteriosclerosis in [place] artery 12-30-2018 Chronic Coronary atherosclerosis and other heart disease (4 sources) Stented coronary artery 03-24-2019 Episodic Deficiency and other anemia (4 sources) Normocytic anemia 12-30-2018 Episodic Diabetes mellitus with complications (4 sources) Neuropathy due to diabetes mellitus 01-28-2020 Chronic Diabetes mellitus without complication (4 sources) Type 2 diabetes mellitus 12-30-2018 Chronic Disorders of lipid metabolism (4 sources) Hyperlipidemia 12-30-2018 Chronic Essential hypertension (4 sources) Hypertensive disorder 04-28-2020 Chronic Fluid and electrolyte disorders (4 sources) Hyperkalemia 12-30-2018 Episodic Gastritis and duodenitis (6 sources) Acute hemorrhagic gastritis; Translations: [Gastritis] 12-30-2018 Episodic Genitourinary symptoms and ill-defined conditions (4 sources) Nocturia 12-30-2018 Episodic Gout and other crystal arthropathies (4 sources) Gout 12-30-2018 Chronic Hyperplasia of prostate (4 sources) Benign prostatic hypertrophy with outflow obstruction 12-30-2018 Chronic Mood disorders (4 sources) Depressive disorder 06-29-2019 Chronic Nutritional deficiencies (4 sources) Vitamin D deficiency 12-30-2018 Chronic Nutritional deficiencies (4 sources) Iron deficiency 12-30-2018 Episodic Other aftercare (4 sources) Post-discharge follow-up 05-10-2021 Episodi c Other circulatory disease (4 sources) Low blood pressure 06-07-2021 Episodic Other diseases of kidney and ureters (2 sources) Kidney disease 07-09-2019 Episodic Other endocrine disorders (4 sources) Secondary hyperparathyroidism 07-09-2019 Chronic Other gastrointestinal disorders (4 sources) Diarrhea 04-02-2019 Episodic Other gastrointestinal disorders (2 sources) History of lower gastrointestinal bleed 03-21-2022 Episodic Other injuries and conditions due to external causes (1 source) At risk for falls 07-12-2021 Episodic Other male genital disorders (4 sources) Impotence 08-02-2020 Chronic Other nervous system disorders (5 sources) Chronic pain syndrome; Translations: [Chronic pain syndrome] Onset: 3 04-30-2019 Chronic Other nervous system disorders (4 sources) Numbness of upper limb 04-28-2020 Episodic Other nervous system disorders (4 sources) Paresthesia 12-30-2018 Episodic Other nutritional; endocrine; and metabolic disorders (2 sources) Obesity 12-30-2018 Chronic Other nutritional; endocrine; and metabolic disorders (3 sources) Overweight 01-17-2022 Episodic Other nutritional; endocrine; and metabolic disorders (3 sources) Overweight in adulthood with body mass index of 25 or more but less than 30 01-17-2022 Episodic Other screening for suspected conditions (not mental disorders or infectious disease) (4 sources) Viral screening status 07-12-2021 Episodic Peripheral and visceral atherosclerosis (4 sources) Peripheral vascular disease 04-30-2019 Chronic Residual codes; unclassified (4 sources) Obstructive sleep apnea syndrome 04-20-2019 Chronic Residual codes; unclassified (4 sources) Immunization due 10-31-2020 Episodic Residual codes; unclassified (3 sources) Screening due 01-17-2022 Episodic Screening and history of mental health and substance abuse codes (4 sources) Ex-smoker 04-02-2021 Episodic Spondylosis; intervertebral disc disorders; other back problems (5 sources) Backache; Translations: [Dorsalgia, unspecified] Onset: 3 12-30-2018 Episodic Thyroid disorders (4 sources) Hypothyroidism 04-30-2019 Chronic Unclassified (6 sources) Drug therapy finding 04-30-2019 Unclassified (4 sources) Long-term current use of insulin 02-20-2021 Unclassified (14 sources) Patient encounter status 04-28-2022 Unclassified (8 sources) Prescribed medication regimen behavior finding 05-31-2019 Unclassified (3 sources) Medication refused 01-17-2022 Results Test Name Value Interpretation Reference Range Facil ity Vital Signs Date Time Vital Sign Value Performing Clinician Faci lity 03-31-2022 11:04-0500 Diastolic Blood Pressure Non-Invasive [address] MARIANA BATRES MD [address] [place] [address] 03-31-2022 11:04-0500 Heart rate 86 /min DR MARIANA BATRES MD [address] [place] [address] 03-31-2022 11:04-0500 Reason For Taking VItal Signs DR MARIANA BATRES MD [address] [place] [address] 03-31-2022 11:04-0500 Respiratory rate 18 /min DR MARIANA BATRES MD [address] [place] [address] 03-31-2022 11:04-0500 Systolic Blood Pressure Non-Invasive [address] MARIANA BATRES MD [address] [place] [address] 03-31-2022 10:05-0500 Body temperature 98.6 [degF] DR MARIANA BATRES MD [address] [place] [address] 03-31-2022 10:05-0500 Diastolic Blood Pressure Non-Invasive [address] MARIANA BATRES MD [address] [place] [address] 03-31-2022 10:05-0500 Heart rate 78 /min DR MARIANA BATRES MD [address] [place] [address] 03-31-2022 10:05-0500 Respiratory rate 18 /min DR MARIANA BATRES MD [address] [place] [address] 03-31-2022 10:05-0500 Systolic Blood Pressure Non-Invasive [address] MARIANA BATRES MD [address] [place] [address] 03-31-2022 09:06-0500 Heart rate 88 /min DR MARIANA BATRES MD [address] [place] [address] 03-31-2022 09:06-0500 Reason For Taking VItal Signs DR MARIANA BATRES MD [address] [place] [address] 03-31-2022 09:06-0500 Respiratory rate 18 /min DR MARIANA BATRES MD [address] 03-31-2022 07:11-0500 Diastolic Blood Pressure Non-Invasive [address] MARIANA BATRES MD [address] 03-31-2022 07:11-0500 Heart rate 76 /min DR MARIANA BATRES MD [address] 03-31-2022 07:11-0500 Systolic Blood Pressure Non-Invasive [address] MARIANA BATRES MD [address] [place] [address] 03-31-2022 06:42-0500 Body temperature 98.6 [degF] DR MARIANA BATRES MD [address] 03-31-2022 06:42-0500 Heart rate 77 /min DR MARIANA BATRES MD [address] 03-31-2022 02:10-0500 Body temperature 96.8 [degF] DR MARIANA BATRES MD [address] [place] [address] 03-31-2022 02:10-0500 Reason For Taking VItal Signs DR MARIANA BATRES MD [address] 03-30-2022 21:45-0500 Heart rate 85 /min DR MARIANA BATRES MD [address] [place] [address] 03-30-2022 09:05-0500 Blood Pressure Cuff Size DR MARIANA BATRES MD [address] 03-30-2022 09:05-[address] MARIANA BATRES MD [address] [place] [address] 03-30-2022 09:05-[address] MARIANA BATRES MD [address] [place] [address] 03-30-2022 09:05-0500 Heart rate 93 /min DR MARIANA BTARES MD [facility] 03-30-2022 03:44-0500 Blood Pressure Cuff Size DR MARIANA BATRES MD [facility] 03-30-2022 03:44-[address] MARIANA BATRES MD [address] [place] [address] 03-30-2022 03:44-[address] MARIANA BATRES MD [address] [place] [address] 03-30-2022 03:44-0500 Mean blood pressure 73 mm[Hg] DR MARIANA BATRES MD [address] [place] [address] 03-30-2022 00:34-0500 Body height [address] MARIANA BATRES MD [address] [place] [address] 03-30-2022 00:34-0500 Body weight 86.[address] MARIANA BATRES MD [address] [place] [address] 03-30-2022 00:34-0500 Body weight 73.82 kg/m2 DR MARIANA BATRES MD [address] [place] [address] 03-30-2022 00:07-0500 Mean blood pressure 75 mm[Hg] DR MARIANA BATRES MD [facility] 03-29-2022 23:11-0500 Diastolic Blood Pressure Non-Invasive [address] JA[address] SAVAGE MD [facility] 03-29-2022 23:11-0500 Heart rate 82 /min DR JAISON SAVAGE MD [facility] 03-29-2022 23:11-0500 Respiratory rate 20 /min DR JAISON SVAAGE MD [facility] 03-29-2022 23:11-0500 Systolic Blood Pressure Non-Invasive [address] JA[address] SAV[address] MD [facility] 03-29-2022 19:50-0500 Diastolic Blood Pressure Non-Invasive [address] JAISON SAVAGE MD [facility] 03-29-2022 19:50-0500 Heart rate 92 /min DR JAISON SAVAGE MD [facility] 03-29-2022 19:50-0500 Respiratory rate 20 /min DR JAISON SAVAGE MD [facility] 03-29-2022 19:50-0500 Systolic Blood Pressure Non-Invasive [address] JA[address] SAVAGE MD [facility] 03-29-2022 18:34-0500 Body temperature 99.32 [degF] DR JAISON SAVAGE MD [facility] 03-29-2022 17:51-0500 Diastolic Blood Pressure Non-Invasive [address] JAISON SAVAGE MD [facility] 03-29-2022 17:51-0500 Heart rate 108 /min DR JAISON SAVAGE MD [facility] 03-29-2022 17:51-0500 Respiratory rate 20 /min DR JAISON SAVAGE MD [facility] 03-29-2022 17:51-0500 Systolic Blood Pressure Non-Invasive [address] JA[address] SAV[address] [facility] 03-29-2022 14:52-0500 Heart rate 115 /min DR JASION SAVAGE MD [facility] 03-29-2022 14:50-0500 SaO2% (BldA) [Mass fraction] 87 % DR JAISON SAVAGE MD [facility] 03-29-2022 14:48-0500 Heart rate 110 /min DR JAISON SAVAGE MD [facility] 03-29-2022 14:32-0500 Body temperature 98.06 [degF] DR JAISON SAVAGE MD [facility] 03-29-2022 14:32-0500 Body weight [address] JAISON SAVAGE MD [facility] 03-29-2022 14:32-0500 Heart rate 114 /min DR JAISON SAVAGE MD [facility] Encounters Encounter Date Encounter Type Care Provider Facility Start: 03-30-2022 End: 03-31-2022 Evaluation and management of inpatient MARIANA BATRES MD Facility:A Start: 03-30-2022 End: 03-31-2022 Evaluation and management of inpatient DR MARIANA BATRES MD [facility] Start: 03-29-2022 End: 03-30-2022 Emergency department patient visit JAISON SAVAGE MD Facility:B Start: 03-29-2022 End: 03-29-2022 Emergency department patient visit DR JAISON SAVAGE MD [facility] Start: 03-12-2022 End: 03-13-2022 ambulatory INES STAUFFER DO Facility:B Start: 03-12-2022 End: 03-12-2022 Patient encounter procedure INES STAUFFER DO [facility] Start: 02-21-2022 End: 02-22-2022 ambulatory INES STAUFFER DO Facility:B Start: 10-05-2021 ambulatory INES STAUFFER DO Facili ty:B Start: 10-05-2021 End: 10-09-2021 Outreach Lab INES STAUFFER DO [facility] Procedures Date Procedure Procedure Detail Performing Clinician Start: 10-17-2017 Intestinal structure (body structure) INES HERNANDEZMICHAEL DO Immunizations Immunization Date Immunization Notes Care Provider Fa cili 01-17-2022 pneumococcal polysaccharide vaccine, 23 valent; Translations: [Pneumovax 23] INES DAVIDMICHAEL DO [facility] 10-31-2020 hepatitis B vaccine, adult dosage; Translations: [Engerix-B] INES STAUFFER DO [facility] 10-31-2020 pneumococcal conjuga te vaccine, 13 valent; Translations: [Prevnar 13] INES DAVIDMICHAEL DO [facility] 07-16-2011 pneumococcal conjuga te vaccine, 13 valent INES STAUFFER DO [facility] Payers Date Payer Category Payer Unknown [id number] 2022 Private Health Insurance [facility] [id number] 2021 Medicare [id number] 1955 Unknown [id number] [id number] 1955 Unknown [id number] [id number] 1954 Unknown [id number] [id number] [id number] 1954 Unknown [id number] [id number] [id number] 1955 Unknown [id number] [id number] [id number] Social History Date Type Detail Facility Start: 02-20-2021 Tobacco smoking status Ex-smoker (fi nding) [facility] Sex Assigned At Male [facility] Start: 01-17-2022 Tobacco smoking status Light t obacco smoker (finding) [facility] Medical Equipment Procedure Code Equipment Code Equipment Origin al Text Equipment Identifier Dates See Instructions , brand is one touch verio; Check QID and prn hypoglycemia; dispense 150, 11 refills, # 150 EA, 11 Refill(s), Pharmacy: [facility] 180, cm, 10/02/20 14:01:00 EDT, Height, 94.6, kg, 10/02/20 14:01:00 EDT, Dosing Weight Start: 10-02-2020 See Instructions , check BGT 4x/day, dispense #1250 test strips, 11 refills; on insulin; dx E11.9 and Z79.4, # 150 EA, 11 Refill(s), Pharmacy: [facility] 180, cm, 05/10/21 11:42:00 EST, Height, 97.9, kg, 05/10/21 11:42:00 EST, Dosing Weight Start: 05-10-2021 See Instructions , brand is one touch verio; Check QID and prn hypoglycemia; dispense 150, 11 refills, # 150 EA, 11 Refill(s), Pharmacy: [facility] 180, cm, 10/02/20 14:01:00 EDT, Height, 94.6, kg, 10/02/20 14:01:00 EDT, Dosing Weight Start: 10-02-2020 See Instructions , check BGT 4x/day, dispense #1250 test strips, 11 refills; on insulin; dx E11.9 and Z79.4, # 150 EA, 11 Refill(s), Pharmacy: [facility] 180, cm, 05/10/21 11:42:00 EST, Height, 97.9, kg, 05/10/21 11:42:00 EST, Dosing Weight Start: 05-10-2021 See Instructions , check BGT 4x/day, dispense #1250 test strips, 11 refills; on insulin; dx E11.9 and Z79.4, # 150 EA, 11 Refill(s), Pharmacy: [facility], 180.5, cm, 01/17/22 15:18:00 EDT, Height, 92, kg, 01/17/22 15:18:00 EDT, Dosing Weight Start: 03-13-2022 See Instructions , qs 1 month supply, testing QID. dx: E11.9 and Z79.4, # 1 EA, 11 Refill(s), Pharmacy: [facility], 180.5, cm, 01/17/22 15:18:00 EDT, Height, 92 Start: 03-14-2022 See Instructions , check BGT 4x/day, dispense #1250 test strips, 11 refills; on insulin; dx E11.9 and Z79.4, # 150 EA, 11 Refill(s), Pharmacy: [facility], 180.5, cm, 01/17/22 15:18:00 EDT, Height, 92, kg, 01/17/22 15:18:00 EDT, Dosing Weight Start: 03-13-2022 See Instructions , qs 1 month supply, testing QID. dx: E11.9 and Z79.4, # 1 EA, 11 Refill(s), Pharmacy: [facility], 180.5, cm, 01/17/22 15:18:00 EDT, Height, 92 Start: 03-14-2022 Functional Status Date Assessment Result Facility 03-31-2022 Functional Status Room check performed [facility] 03-31-2022 Functional Status [facility] 03-30-2022 Functional Status [facility] 03-30-2022 Functional Status [facility] 03-30-2022 Functional Status Valid [place] [facility] 03-29-2022 Functional Status ID band on, Call device within reach, Bed in low position, Wheels locked, Upper/Half-Length side-rails up [facility] 03-29-2022 Functional Status [facility] Mental Status Date Assessment Result Facility 03-31-2022 Mental Status Oriented x 4 [facility] 03-30-2022 Mental Status [facility] 03-30-2022 Mental Status [facility] 03-29-2022 Mental Status Oriented x 4 [facility] 03-29-2022 Mental Status [facility] Clinical Notes 03-12-2022 to 04-02-2022 Note Date & Type Note Facility 04-02-2022 Note . MICRO - Microbiology PROCEDURE: Blood Culture (bacterial) [*1] SOURCE: Blood BODY SITE: COLLECTED DATE/TIME: 03/29/2022 15:13 EST RECEIVED DATE/TIME: 03/29/2022 19:49 EST START DATE/TIME: 03/29/2022 19:49 EST FREE TEXT SOURCE: PRELIMINARY REPORTS Preliminary Report [] Verified Date/Time/Personnel: 04/02/2022 09:32 EST Staphylococcus hominis Isolated from aerobe bottle only. Refer to previous culture for susceptibility. [id number] collected 03-29-22 Staphylococcus coagulase negative Isolated from aerobe bottle only. 1 of 2 sets positive Organism is a potential contaminant. Clinical Significance undetermined. Please contact Microbiology if further work-up is required. Preliminary Report [] Verified Date/Time/Personnel: 04/01/2022 09:28 EST Staphylococcus hominis Isolated from aerobe bottle only. Staphylococcus coagulase negative Isolated from aerobe bottle only. 1 of 2 sets positive Organism is a potential contaminant. Clinical Significance undetermined. Please contact Microbiology if further work-up is required. Final report to follow. Preliminary Report [] Verified Date/Time/Personnel: 03/29/2022 20:59 EST Culture has been received in lab and is no growth to date. Routine cultures are held for 5 days. STAINS GSAER [] Verified Date/Time/Personnel: 03/30/2022 11:21 EST Gram Positive Cocci in clusters Performing Locations *1: This test was performed at: [facility], [address] [place] [address], [id number] , [facility] ([place]) 04-02-2022 Note . MICRO - Microbiology PROCEDURE: Blood Culture (bacterial) [*1] SOURCE: Blood BODY SITE: COLLECTED DATE/TIME: 03/29/2022 15:13 EST RECEIVED DATE/TIME: 03/29/2022 19:49 EST START DATE/TIME: 03/29/2022 19:49 EST FREE TEXT SOURCE: FINAL REPORTS Final Report [] Verified Date/Time/Personnel: 04/02/2022 09:32 EST Staphylococcus hominis Isolated from aerobe bottle only. This staphylococci does not demonstrate inducible clindamycin resistance in vitro. PRELIMINARY REPORTS Preliminary Report [] Verified Date/Time/Personnel: 04/01/2022 08:55 EST Staphylococcus hominis Isolated from aerobe bottle only. ИВАН to follow Preliminary Report [] Verified Date/Time/Personnel: 03/29/2022 20:59 EST Culture has been received in lab and is no growth to date. Routine cultures are held for 5 days. STAINS GSAER [] Verified Date/Time/Personnel: 03/30/2022 12:59 EST Gram Positive Cocci in clusters SUSCEPTIBILITY RESULTS Staphylococcus hominis Antibiotic ИВАН Dilut ИВАН Inter Ampicillin <=2 Beta Lactamase Positive Ampicillin/ <=8/4 Susceptible Sulbactam Azithromycin >4 Resistant Cefepime <=4 Susceptible Cefotaxime <=8 Susceptible Ceftriaxone <=4 Susceptible Ciprofloxacin <=1 Susceptible Clindamycin <=0.25 Susceptible Erythromycin >4 Resistant Imipenem <=4 Susceptible Levofloxacin <=1 Susceptible Meropenem <=2 Susceptible Oxacillin <=0.25 Susceptible Penicillin >2 Beta Lactamase Positive Piperacillin/ <=8 Susceptible Tazobactam Tetracycline <=4 Susceptible Trimethoprim/ <=0.5/9.5 Susceptible Sulfa Vancomycin 0.5 Susceptible Performing Locations *1: This test was performed at: [facility], [address] [place] [address], [address] , [facility] ([place]) 03-31-2022 Discharge summary Date of Service 03/31/22 Discharge Diagnosis Positive blood culture, Staphylococcus bacteremia versus contamination Bacterial pneumonia End-stage renal disease on hemodialysis Friday PVD anxiety, depression BPH DM type II, on insulin HTN hypothyroidism HLD Chronic pain COPD Chronic respiratory failure, sometimes requiring home O2, Hospital Course 66-year-old white male who was transferred from [facility] for pneumonia. He has multiple underlying comorbidities, he had a productive cough, with shortness of breath on exertion for several days, he has a chronic respiratory failure on home O2 as needed, he had end-stage renal disease on hemodialysis Friday and Friday. He was admitted last night, CT of the chest from [facility] showed widespread tree-in-bud opacities and multifocal nodular areas of consolidation may relate to atypical pneumonia. He was started on empiric antibiotics of IV Rocephin and doxycycline, this morning blood culture collected on 03/29/2022 come back positive for gram-positive cocci in clusters in both of the 2 bottles, repeat cultures so far no growth. blood culture PCR also showed Staphylococcus Aureus, I planned to consult ID, and change antibiotic to vancomycin, unfortunately patient refused to stay, he said he is feeling fine, he has no fever, no leukocytosis, he is hemodynamic stable at this moment. He was evaluated by nephrology, they recommend patient can be discharged from their perspective no need hemodialysis today. I [facility] try to persuade the patient to stay for the IV antibiotics, and also talked with patient's sister who is in the room, however patient strongly refused, and he signed out AMA. 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 Admission Date 03/30/22 Discharge Date 03/31/22 Medications Unchanged albuterol (albuterol MDI (90 mcg/inh) CFC free inhalation aerosol)2 puff(s) by inhalation four (4) times a day for 90 Days. Refills: 1. albuterol (albuterol 2.5 mg/3 mL (0.083%) inhalation solution)3 Milliliter by inhalation every 4 hours as needed as needed for wheezing for 30 Days. Refills: 5. aspirin (aspirin 81 mg oral delayed release tablet)1 tab(s) by mouth every day for 90 Days. Refills: 1. cholecalciferol (cholecalciferol 100 mcg (4000 intl units) oral tablet)1 tab(s) by mouth once a day for 90 Days. Refills: 1. cilostazol (cilostazol 100 mg oral tablet)1 tab(s) by mouth once a day for 90 Days. Refills: 1. clopidogrel (clopidogrel 75 mg oral tablet)1 tab(s) by mouth once a day for 90 Days. Refills: 1. diazePAM (diazePAM 5 mg oral tablet)1 tab(s) by mouth two (2) times a day for 30 Days. to fill on or after 03/21/2022. Refills: 0. DME (Blood Glucose Test Machine)One Touch Verio Glucose Meter #1 no refills, dx: E11.9, Z79.4. Refills: 0. DME (Blood Glucose Test Machine)dispense one glucometer; check BGT 4x/day, on insulin; dx E11.9 and Z79.4. Refills: 0. DME (Blood Glucose Test Strips)check BGT 4x/day, dispense #1250 test strips, 11 refills; on insulin; dx E11.9 and Z79.4. Refills: 11. DME (DME MISCellaneous)dispense one pulse oximeter; dx J43.9, R09.02.. Refills: 0. DME (DME MISCellaneous)True metrix glucometer. Refills: 0. DME (Lancets)qs 1 month supply, testing QID. dx: E11.9 and Z79.4. Refills: 11. escitalopram (Lexapro 20 mg oral tablet)1 tab(s) by mouth once a day for 90 Days. Refills: 1. finasteride (finasteride 5 mg oral tablet)1 tab(s) by mouth once a day for 90 Days. Refills: 1. insulin glargine (Lantus Solostar Pen 100 units/mL 3 mL Pen)30 unit(s) Subcutaneous two (2) times a day for 90 Days. Refills: 1. insulin lispro (HumaLOG) (HumaLOG KwikPen 100 units/mL injectable PEN)25 unit(s) Subcutaneous three (3) times a day for 90 Days. discontinue novolog. Refills: 1. isosorbide mononitrate (isosorbide mononitrate 30 mg oral tablet, extended release)0.5 tab(s) by mouth once a day (in the morning) for 90 Days. Refills: 1. levothyroxine (levothyroxine 88 mcg (0.088 mg) oral tablet)1 tab(s) by mouth once a day. Refills: 1. loperamide (loperamide 2 mg oral capsule)take 1 capsule by mouth every 4 hours -1 CAPSULE AFTER EACH LOOSE STOOL WITH A MAX OF 8 CAPS PER DAY. Refills: 1. naloxone (Narcan 4 mg/0.1 mL nasal spray)1 spray(s) Intranasal As Directed as needed see pharmacy notes. may repeat every 2 to 3 minutes until patient responds. Refills: 0. oxyCODONE (oxyCODONE 5 mg oral tablet ( IMMEDIATE release ))1 tab(s) by mouth two (2) times a day for 30 Days. oarrs appropriate; to fill on or after 03/21/2022; has narcan. Refills: 0. pantoprazole (pantoprazole 20 mg oral enteric coated tablet)1 tab(s) by mouth once a day. Refills: 1. rosuvastatin (rosuvastatin 10 mg oral tablet)1 tab(s) by mouth once a day for 90 Days. Refills: 1. umeclidinium-vilanterol (Anoro Ellipta 62.5 mcg-25 mcg/inh inhalation powder)1 puff(s) by inhalation once a day for 90 Days. Refills: 1. Follow Up Appointments No qualifying data available. Follow Up Labs/Studies Discharge Labs No Follow-up Labs Discharge Studies No Follow-up Studies Discharge Diet No qualifying data available. Discharge Activity No qualifying data available. Condition on Discharge signed out AMA Readmission Risk/Palliative Score No qualifying data available. Discharge Disposition Signed out AMA Time Spent 25 minutes Digitally Signed by YEE MOTLEY MD on 03/31/2022 04:14 PM [facility] 03-31-2022 Nurse Progress note Patient wishes to leave against medical advice. Dr Motley spoke with the patient and his sister. He understands risks and still wishes to leave. Patient left via w/c with his sister Leslye. Digitally Signed by Marily Peralta RN on 03/31/2022 02:39 PM [facility] 03-31-2022 Nephrology Progress note Subjective Patient seen and examined. Resting comfortably chart reviewed. Discussed with nursing. Objective Vitals and Measurements T: 37 C (Oral) TMIN: 36.0 C (Oral) TMAX: 37 C (Oral) HR: 86 RR: 18 BP: 122/56 SpO2: 92% Intake and Output 7AM Yesterday to 7AM Today Intake and Output (Last 24 hours) Intake Output Urine Voided 400.00 Total Summary Total Intake 0.00 Total Output 400.00 Fluid Balance -400.00 Physical Exam Gen: comfortable, No sign of any acute distress HEENT: No pallor, No icterus, no JVD, no carotid bruit Lungs: Absent breath sounds in the left base CVS: Regular rate and rhythm, no murmur, no rubs Abd: Soft, nontender, no organomegaly, No flank pain Neuro: Alert, no deficits Ext: No edema Left arm AV fistula has a good bruit and thrill [1] Weight Dosing Weight: 86.1 kg (03/30/22) Medications Medications (22) Active Scheduled: (15) albuterol - ipratropium 2.5 mg-0.5 mg/3 mL Inhal Haley UD 3 mL, Inhalation, QIDRT aspirin 81 mg EC 81 mg 1 tab(s), Oral, Daily atorvastatin 20 mg tablet 20 mg 1 tab(s), Oral, qHS cefTRIAXone IVP syringe 2 gram(s) 20 mL, IV Push (INT), qDay cilostazol 100 mg Tablet 100 mg 1 tab(s), Oral, qDay clopidogrel 75 mg Tablet 75 mg 1 tab(s), Oral, qDay diazepam 5 mg tablet 5 mg 1 tab(s), Oral, BID doxycycline 100 mg 10 mL, IV Piggyback, q12h escitalopram 20 mg tablet 20 mg 1 tab(s), Oral, qDay finasteride 5 mg tablet 5 mg 1 tab(s), Oral, qDay insulin glargine 30 unit(s) 0.3 mL, Subcutaneous (INT), BID isosorbide mononitrate 30 mg ER tablet 15 mg 0.5 tab(s), Oral, qAM levothyroxine 88 mcg tablet 88 mcg 1 tab(s), Oral, qDay pantoprazole 20 mg EC tablet 20 mg 1 tab(s), Oral, qDay predniSONE 20 mg tablet 40 mg 2 tab(s), Oral, qDayM Continuous: (0) PRN: (7) acetaminophen 325 mg Tablet 650 mg 2 tab(s), Oral, q6hWA albuterol 0.083% Soln UD (2.5mg/3 mL) 2.5 mg 3 mL, Inhalation, q2hRT melatonin 3 mg tablet 3 mg 1 tab(s), Oral, qHS melatonin 3 mg tablet 3 mg 1 tab(s), Oral, qHS ondansetron 2 mg/ 1 mL 2 mL INJ 4 mg 2 mL, IV Push, q4h ondansetron 4 mg DIS tablet 4 mg 1 tab(s), Oral, q6h oxycodone 5 mg tablet (immediate release) 5 mg 1 tab(s), Oral, BID Lab Results 03/31 06:39 WBC: 7.7 Hgb: 9.6 L Hct: 29.5 L Platelet: 242 Neutrophil %: 77.9 H Glucose Level: 206 H Sodium Level: 134 L Potassium Level: 4.7 BUN: 98.0 H Creatinine Lvl (s): 6.39 H 03/30 03:20 WBC: 7.1 Hgb: 9.9 L Hct: 30.1 L Platelet: 231 Neutrophil %: 89.7 H Glucose Level: 183 H Sodium Level: 136 Potassium Level: 4.3 BUN: 58.0 H Creatinine Lvl (s): 4.61 H EKG No qualifying data available. Assessment/Plan Anxiety Chronic back pain Pain syndrome, chronic Panic attacks 1. End-stage renal disease on dialysis Friday 2. Pneumonia 3. Anemia 4. Type 2 diabetes [2] Labs are stable no need for dialysis today. We will plan for hemodialysis tomorrow. Patient eager to leave the hospital disposition as per primary service. Continue with antibiotics. See orders. [1] Consult Note; NIK WHITAKER MD 03/30/2022 12:29 EST [2] Consult Note; NIK WHITAKER MD 03/30/2022 12:29 EST Digitally Signed by NIK WHITAKER MD on 03/31/2022 11:32 AM [facility] 03-30-2022 Note . MICRO - Microbiology PROCEDURE: Blood Culture (bacterial) [*1] SOURCE: Blood BODY SITE: COLLECTED DATE/TIME: 03/30/2022 11:57 EST RECEIVED DATE/TIME: 03/30/2022 12:12 EST START DATE/TIME: 03/30/2022 12:12 EST FREE TEXT SOURCE: PRELIMINARY REPORTS Preliminary Report [] Verified Date/Time/Personnel: 03/30/2022 12:59 EST Culture has been received in lab and is no growth to date. Routine cultures are held for 5 days. Performing Locations *1: This test was performed at: [address], [address] [place] [address] ([place]) 03-30-2022 Note . MICRO - Microbiology PROCEDURE: Blood Culture (bacterial) [*1] SOURCE: Blood BODY SITE: COLLECTED DATE/TIME: 03/30/2022 11:57 EST RECEIVED DATE/TIME: 03/30/2022 12:12 EST START DATE/TIME: 03/30/2022 12:12 EST FREE TEXT SOURCE: PRELIMINARY REPORTS Preliminary Report [] Verified Date/Time/Personnel: 03/30/2022 12:59 EST Culture has been received in lab and is no growth to date. Routine cultures are held for 5 days. Performing Locations *1: This test was performed at: [address], [address] [place] [address] ([place]) Acute hypoxic respiratory fa ilure. Patient with only intermittent home O2 requirement now noted to be hypoxic to 70s on room air. He is currently stable on 3 L NC at 94%. Suspect related to multifocal pneumonia and COPD exacerbation. -Continue supplemental O2 and wean as tolerated. Multifocal pneumonia. Patient with a cough productive of yellow sputum. Leukocytosis. CT angiography chest shows tree-in-bud opacities. Recommended follow-up after illness to ensure complete resolution. The patient has nodules which may be concerning. -We will cover with Rocephin and doxycycline, doxycycline may be discontinued if atypicals are negative -Strep pneumo, mycoplasma, Legionella antigen COPD exacerbation. Patient with diminished breath sounds throughout on auscultation. He has been using his home nebulizers with no relief. Received initial treatment in the [place] ED with somewhat improvement in symptoms. -Solu-Medrol 60 mg every 8 hours -DuoNebs every 4 hours -As needed albuterol ESRD on HD. 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 We will consult nephrology here for dialysis. CHF. BNP was significantly elevated but the patient has no lower extremity edema and his chest imaging is more consistent with multifocal pneumonia. Peripheral vascular disease. Currently asymptomatic. Continue aspirin, Plavix, cilostazol. Anxiety. Continue diazepam. Depression. Continue Lexapro. BPH. Asymptomatic. Continue finasteride. DM on insulin. Anticipate the patient's insulin requirement will increase as he is receiving steroids for treatment of COPD exacerbation. Continue home insulin. HTN. Continue isosorbide. Hypothyroidism. Continue levothyroxine. Chronic pain. Continue oxycodone as needed. HLD. Continue rosuvastatin. CAD. No CP. No concerning ECG changes. DVT prophylaxis: SCDs Note dictated using voice recognition software and may contain typographical errors. Future Appointments Appointment Date:04/25/2022 03:00:00 PM Scheduled Provider:INES STAUFFER DO Location:[facility] Appointment Type: OV Diagnostic Tests Pending * Legionella Urine Ag 03/30/22 * Streptococcus Pneumoniae Urine Antig 03/30/22 Future Scheduled Tests Laboratory* Ferritin 01/17/22 * Hepatic Function Panel 03/21/22 * Prostate Specific Antigen 01/17/22 * Prostate Specific Antigen 03/21/22 * Thyroid Stimulating Hormone 01/17/22 * Thyroid Stimulating Hormone 03/21/22 * Free T4 03/21/22 * Uric Acid 03/21/22 * A1C Hemoglobin 03/21/22 * Complete Blood Count 01/17/22 * Complete Blood Count 03/21/22 * Lipid Profile 01/17/22 * Lipid Profile 03/21/22 * Hepatitis C Antibody IgG 01/17/22 * Hepatitis C Antibody IgG 03/21/22 * Microalbumin Level Urine 01/17/22 * Microalbumin Level Urine 03/21/22 * Renal Function Panel 01/17/22 * Renal Function Panel 03/21/22 * Vitamin D Level 03/21/22 * Complete Metabolic Panel 01/17/22 [facility] 01-14-2023 Consult note Date of Service March 30, 2022 Reason for Consultation ESRD History of Present Illness 60-year-old gentleman who has a history of end-stage renal disease on dialysis Friday receives dialysis through left arm AV fistula. Follows with the [facility] unit. He is also known to have a history of hypertension, type 2 diabetes BPH hypothyroidism dyslipidemia chronic pain COPD sometimes on home oxygen but does not wear it on a daily basis. He presents to outside hospital with increasing shortness of breath. He has been having a cough with some productive's phlegm. At the outside emergency department he was found to be tachycardic. He was also found to be hypoxic with a saturation of 74% on room air 94% on 3 L of oxygen. He underwent CT scan with contrast which was negative for pulmonary embolism. But did show widespread obesity and nodular areas of consolidation. Now admitted for further care. We been asked to see and manage his dialysis needs. Otherwise patient states he feels a little bit better today. Saturation currently as the nursing staff is checking on room air is running between 84 to 89%. He does not have any chest pain no fever chills no gross blood in his stools makes very little urine no recent rash. COVID testing has been negative. Review of Systems As per HPI Physical Exam Vitals and Measurements T: 36.5 C (Oral) TMIN: 36.3 C (Oral) TMAX: 37.1 C (Oral) HR: 93 RR: 20 BP: 110/64 SpO2: 93% HT: 108cm WT: 86.1 kg BMI: 73.82 Weight Dosing Weight: 86.1 kg (03/30/22) Gen: comfortable, No sign of any acute distress HEENT: No pallor, No icterus, no JVD, no carotid bruit Lungs: Absent breath sounds in the left base CVS: Regular rate and rhythm, no murmur, no rubs Abd: Soft, nontender, no organomegaly, No flank pain Neuro: Alert, no deficits Ext: No edema Left arm AV fistula has a good bruit and thrill Lab Results 03/30 03:20 WBC: 7.1 Hgb: 9.9 L Hct: 30.1 L Platelet: 231 Neutrophil %: 89.7 H Glucose Level: 183 H Sodium Level: 136 Potassium Level: 4.3 BUN: 58.0 H Creatinine Lvl (s): 4.61 H Assessment/Plan 1. End-stage renal disease on dialysis Friday 2. Pneumonia 3. Anemia 4. Type 2 diabetes From a renal perspective is labs are stable volume status is stable. I did discuss the option of anextra treatment of dialysis today for the fact he received and and to address any volume issues that could be related to shortness of breath. Patient at this point declines to have dialysis. We will resume his hemodialysis as scheduled on Friday. Chest x-ray results were noted. Microbiology was reviewed. 1 out of 2 blood culture positive for gram-positive in clusters. Follow repeat cultures. Follow labs. See orders. Problem List/Past Medical History Ongoing Anxiety Back pain BMI 28.0-28.9,adult BPH with obstruction/lower urinary tract symptoms CAD in [place] artery CHF with unknown LVEF Chronic pain syndrome Chronic prescription benzodiazepine use Chronic prescription opiate use CKD (chronic kidney disease) stage 5, GFR less than 15 ml/min COPD with emphysema Dependence on renal dialysis Depression Diabetic neuropathy Diarrhea Erectile dysfunction Former smoker Gastritis Gout High risk medication use HLD (hyperlipidemia) Hospital discharge follow-up HTN (hypertension) Hx of lower gastrointestinal bleeding Hyperkalemia Hypotension Hypothyroidism Immunization due Immunization refused Iron deficiency Left arm numbness Long-term insulin use Malignant neoplasm of hepatic flexure Medicare annual wellness visit, subsequent Need for hepatitis C screening test Nocturia Normocytic anemia On amiodarone therapy LADARIUS (obstructive sleep apnea) Overweight Panic attacks Paresthesias Paroxysmal atrial fibrillation Peripheral vascular disease Screening due Screening for cardiovascular condition Screening for osteoporosis Screening for prostate cancer Secondary hyperparathyroidism Stented coronary artery Type 2 diabetes mellitus with nephropathy Vitamin D deficiency Historical Arm paresthesia, left Procedure/Surgical History Bowel: 10/17/17 Endoscope: 09/18/17 Echocardiogram: 05/14/17 Lobectomy of lun11/24/16 Thoracectomy: 11/24/16 Thoracic lymphadenopathy: 11/24/09 Tonsillectomy and adenoidectomy Coronary artery bypass grafts x 3 Medications Inpatient acetaminophen, 650 mg= 2 tab(s), Oral, q6hWA, PRN aspirin 81 mg oral delayed release tablet, 81 mg= 1 tab(s), Oral, Daily atorvastatin, 20 mg= 1 tab(s), Oral, qHS cilostazol, 100 mg= 1 tab(s), Oral, qDay clopidogrel, 75 mg= 1 tab(s), Oral, qDay diazePAM, 5 mg= 1 tab(s), Oral, BID doxycycline DuoNeb, 3 mL, Inhalation, QIDRT finasteride 5 mg oral tablet, 5 mg= 1 tab(s), Oral, qDay HumaLOG 100 units/mL subcutaneous solution, 25 unit(s)= 0.25 mL, Subcutaneous, TID isosorbide mononitrate 30 mg oral tablet, extended release, 15 mg= 0.5 tab(s), Oral, qAM Lantus, 30 unit(s)= 0.3 mL, Subcutaneous (INT), BID levothyroxine, 88 mcg= 1 tab(s), Oral, qDay Lexapro, 20 mg= 1 tab(s), Oral, qDay melatonin, 3 mg= 1 tab(s), Oral, qHS, PRN melatonin, 3 mg= 1 tab(s), Oral, qHS, PRN oxyCODONE 5 mg oral tablet ( IMMEDIATE release ), 5 mg= 1 tab(s), Oral, BID, PRN pantoprazole, 20 mg= 1 tab(s), Oral, qDay predniSONE, 40 mg= 2 tab(s), Oral, qDayM Proventil (2.5 mg/3 mL) inhalation solution, 2.5 mg= 3 mL, Inhalation, q2hRT, PRN Rocephin, 2 gram(s)= 20 mL, IV Push (INT), qDay Zofran, 4 mg= 2 mL, IV Push, q4h, PRN Zofran ODT, 4 mg= 1 tab(s), Oral, q6h, PRN Home albuterol MDI (90 mcg/inh) CFC free inhalation aerosol, 2 puff(s), Inhalation, QID, 1 refills albuterol 2.5 mg/3 mL (0.083%) inhalation solution, 2.5 mg= 3 mL, Inhalation, q4h, PRN, 5 refills Anoro Ellipta 62.5 mcg-25 mcg/inh inhalation powder, 1 puff(s), Inhalation, qDay, 1 refills aspirin 81 mg oral delayed release tablet, 81 mg= 1 tab(s), Oral, Daily, 1 refills Blood Glucose Test Machine, See Instructions Blood Glucose Test Machine, See Instructions Blood Glucose Test Strips, See Instructions, 11 refills cholecalciferol 100 mcg (4000 intl units) oral tablet, 4000 International_Unit= 1 tab(s), Oral, qDay, 1 refills cilostazol 100 mg oral tablet, 100 mg= 1 tab(s), Oral, qDay, 1 refills clopidogrel 75 mg oral tablet, 75 mg= 1 tab(s), Oral, qDay, 1 refills diazePAM 5 mg oral tablet, 5 mg= 1 tab(s), Oral, BID DME MISCellaneous, See Instructions DME MISCellaneous, See Instructions finasteride 5 mg oral tablet, 5 mg= 1 tab(s), Oral, qDay, 1 refills HumaLOG KwikPen 100 units/mL injectable PEN, 25 unit(s), Subcutaneous, TID, 1 refills isosorbide mononitrate 30 mg oral tablet, extended release, 15 mg= 0.5 tab(s), Oral, qAM, 1 refills Lancets, See Instructions, 11 refills Lantus Solostar Pen 100 units/mL 3 mL Pen, 30 unit(s), Subcutaneous, BID, 1 refills levothyroxine 88 mcg (0.088 mg) oral tablet, 88 mcg= 1 tab(s), Oral, qDay, 1 refills Lexapro 20 mg oral tablet, 20 mg= 1 tab(s), Oral, qDay, 1 refills loperamide 2 mg oral capsule, See Instructions, 1 refills Narcan 4 mg/0.1 mL nasal spray, 1 spray(s), Intranasal, AsDirected, PRN oxyCODONE 5 mg oral tablet ( IMMEDIATE release ), 5 mg= 1 tab(s), Oral, BID pantoprazole 20 mg oral enteric coated tablet, 20 mg= 1 tab(s), Oral, qDay, 1 refills rosuvastatin 10 mg oral tablet, 10 mg= 1 tab(s), Oral, qDay, 1 refills Allergies NKA Social History Alcohol Use: Never., 12/30/2018 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 Diabetes: Father. Hypertension: Father. Leukemia: Father. Immunizations hepatitis B adult vaccine: 20 mcg (10/31/20) pneumococcal 13-valent conjugate vaccine: 0.5 mL (10/31/20) pneumococcal 13-valent conjugate vaccine: 0 unknown unit (07/16/11) pneumococcal 23-valent vaccine(Pneumovax: 0.5 mL (01/17/22) Digitally Signed by NIK WHITAKER MD on 03/30/2022 12:33 PM [id number] Date of Service 03/30/2022 Chief Complaint Shortness of breath Subjective This is a 66-year-old male with a past medical history of lung cancer status post lobectomy, Peripheral vascular disease, anxiety, depression, type 2 diabetes, hypertension, hypothyroid, hyperlipidemia, COPD, ESRD on dialysis Friday who presented to [facility] as a transfer from [facility] emergency department on 03/30/2022 with complaints of increasing shortness of breath. Has had productive cough, decreased appetite, and intermittent fevers over the past week. Thishas progressed prompting him to present to the ER. CT angiogram was obtained in the ER which demonstrated no evidence of pulmonary embolism, widespread tree-in-bud opacities and multifocal nodular areas of consolidation that may relate to atypical pneumonia, follow-up is advised to ensure resolution after appropriate therapy. Nonspecific discrete nodules in the lungs were seen they could be malignant in light of history of malignancy. Outpatient follow-up advised. Noted to have leukocytosis with a WBC of 11, lactic acidosis with a lactic acid of 3.7, received IV fluids and repeat was 2.8. BNPwas elevated over 18,000. Of note, patient does have a history of ESRD. Was negative for flu and COVID-19. Was transferred to [facility] for further management. On my exam, patient is laying in bed. States shortness of breath is mildly improved. Denies chest pain, nausea, vomiting. Continues to have productive cough with yellow sputum. No fevers noted. No other complaints. Objective Vitals and Measurements T: 36.3 C (Oral) TMIN: 36.3 C (Oral) TMAX: 37.1 C (Oral) HR: 93(Apical) RR: 20 BP: 108/63 SpO2: 90%HT: 108 cm WT: 86.1 kg BMI: 73.82 Intake and Output 7AM Yesterday to 7AM Today Intake and Output (Last 24 hours) Intake Output Total Summary Total Intake 0.00 Total Output 0.00 Fluid Balance 0.00 Physical Exam Physical Exam General: No acute distress. Alert, appropriate and awake, oriented to time, people and place Skin: No rash. Warm, Dry, Intact HEENT: Head is normocephalic and atraumatic. No lesions. Pupils equal in size. Extraocular movements within normal limits. Nose: No septal deviation. Mouth: Oropharynx mucosa is without lesion. Neck: Supple. No lymphadenopathy, thyromegaly noted. Lungs: Bilateral diminished with coarse crackles. Cardiovascular: Heart is regular rhythm, S1S2, No extra-audible heart tones Abdomen: Abdomen is soft, nontender. Bowel sounds positive all four quadrants. Extremities: No clubbing, cyanosis or edema. Peripheral pulses palpable. No calf tenderness. Adequate peripheral circulation. Neurological: Following simple commands, moving all extremities. Weight Dosing Weight: 86.1 kg (03/30/22) Medications Medications (23) Active Scheduled: (16) albuterol - ipratropium 2.5 mg-0.5 mg/3 mL Inhal Haley UD 3 mL, Inhalation, QIDRT aspirin 81 mg EC 81 mg 1 tab(s), Oral, Daily atorvastatin 20 mg tablet 20 mg 1 tab(s), Oral, qHS cefTRIAXone IVP syringe 2 gram(s) 20 mL, IV Push (INT), qDay cilostazol 100 mg Tablet 100 mg 1 tab(s), Oral, qDay clopidogrel 75 mg Tablet 75 mg 1 tab(s), Oral, qDay diazepam 5 mg tablet 5 mg 1 tab(s), Oral, BID doxycycline 100 mg 10 mL, IV Piggyback, q12h escitalopram 20 mg tablet 20 mg 1 tab(s), Oral, qDay finasteride 5 mg tablet 5 mg 1 tab(s), Oral, qDay insulin glargine 30 unit(s) 0.3 mL, Subcutaneous (INT), BID insulin lispro 100 units/mL Soln (3 mL) 25 unit(s) 0.25 mL, Subcutaneous, TID isosorbide mononitrate 30 mg ER tablet 15 mg 0.5 tab(s), Oral, qAM levothyroxine 88 mcg tablet 88 mcg 1 tab(s), Oral, qDay pantoprazole 20 mg EC tablet 20 mg 1 tab(s), Oral, qDay predniSONE 20 mg tablet 40 mg 2 tab(s), Oral, qDayM Continuous: (0) PRN: (7) acetaminophen 325 mg Tablet 650 mg 2 tab(s), Oral, q6hWA albuterol 0.083% Soln UD (2.5mg/3 mL) 2.5 mg 3 mL, Inhalation, q2hRT melatonin 3 mg tablet 3 mg 1 tab(s), Oral, qHS melatonin 3 mg tablet 3 mg 1 tab(s), Oral, qHS ondansetron 2 mg/ 1 mL 2 mL INJ 4 mg 2 mL, IV Push, q4h ondansetron 4 mg DIS tablet 4 mg 1 tab(s), Oral, q6h oxycodone 5 mg tablet (immediate release) 5 mg 1 tab(s), Oral, BID Lab Results 03/30 03:20 WBC: 7.1 Hgb: 9.9 L Hct: 30.1 L Platelet: 231 Neutrophil %: 89.7 H Glucose Level: 183 H Sodium Level: 136 Potassium Level: 4.3 BUN: 58.0 H Creatinine Lvl (s): 4.61 H EKG No qualifying data available. Assessment/Plan 1. Pneumonia 2. Acute hypoxemic respiratory failure 3. COPD 4. Type 2 diabetes 5. History of lung cancer 6. Hypertension 7. Hypothyroid 8. Hyperlipidemia 9. ESRD on dialysis 10. Anxiety, depression Presented with a 1 week history of increased shortness of breath, decreased appetite, and productive cough. CT obtained in the ER demonstrated widespread tree-in-bud opacities and multifocal nodular areas of consolidation. Concern for atypical pneumonia. Outpatient imaging advised due to history ofmalignancy. Continue Rocephin and azithromycin, obtain atypicals. Respiratory ID panel pending. Acute hypoxemic respiratory failure secondary to pneumonia, on 4 L nasal cannula. Wean for an oxygen saturation of 90% or greater. COPD, was started on IV steroids due to concern for exacerbation. No wheezes on exam. Does have productive cough. Will transition to oral steroids and continue to monitor. Type 2 diabetes, continue ADA diet and sliding scale insulin. History of lung cancer, will require outpatient follow-up due to CT findings. Patient states he would not want treatment, has had a lobectomy in the past. Hypertension, continue home regimens. Hypothyroid, continue Synthroid. Hyperlipidemia, continue statin. ESRD on dialysis Friday, Friday, Friday. Nephrology following. Anxiety, depression. Continue home medications. CODE STATUS: Full code Discussed with patient at the bedside, discussed with sister over the phone. Discussed with Dr. Vergara. Time Spent 50 minutes spent with greater than 50% of that time spent on patient care and care coordination. Digitally Signed by INES DURAND on 03/30/2022 10:00 AM [id number] Respiratory [facility] Hospital Progress note Respiratory Therapy Evaluation Entered On: 03/30/2022 8:45 EST Performed On: 03/30/2022 8:45 EST by RUBIN Weber Respiratory Therapy Evaluation Pulmonary Status : Severe chronic exacerbation Surgical Status : No surgeries Chest X-Ray : Infiltrates, atelectasis, pleural effusion Breath Sounds (RT) : Crackles or intermittent wheezes Respiratory Pattern (RT) : YODER,Irregular or RR =26-30 Cough (RT) : Strong, non-productive Respiratory Therapy Evaluation Score : 11 Level of Activity : Ambulatory Mental Status : Alert, oriented Respiratory Evaluation Triage Score : 3 - (11-15) Freq: QIDRT & Albuterol Q2 RT prn RT Assessment [Frequency/Schedule] : QIDRT RUBIN Weber - 03/30/2022 8:45 EST Digitally Signed by RUBIN Weber on 03/30/2022 08:45 AM [id number] Note Chief Complaint Transition plan Transitional Action Points Patient is hospitalized with pneumonia, hypoxia No hospitalizations in the past 12 months I anticipate he will be able to transition back home once medically stable we will continue to follow for transition planning Assessment/Plan Pneumonia Hypoxia Age-related debility Readmission Risk Points Age greater than 65 full code pneumonia Fatigue COPD End-stage renal disease on dialysis CHF History of Present Illness Patient is a 66-year-old male admitted for pneumonia and hypoxia with history of end-stage renal disease and is dialysis requiring. Also noted to have history of COPD and does have home oxygen as needed. This is his only hospitalization last 12 months. He is not currently ordered physical or occupational therapy Review of Symptoms General: Denies fever or chills HEENT: Denies blurry vision, headache, congestion Respiratory: Denies shortness of breath or cough Cardio: Denies chest pain or palpations GI: Denies abdominal pain or change in appetite Musculoskeletal: Denies injury Neuro: Denies dizziness or confusion Psych: Denies depression or anxiety Physical Exam General: No acute distress, lying in bed, appears comfortable HEENT: Oral mucosa moist, eyes following movement Skin: Scattered abrasions Extremities: No lower extremity edema, pulses present Musculoskeletal: Weakness present Neurological: No tremors or focal deficit Psych: mood cooperative Vitals Signs(Last 24 hrs)__Last Charted Minimum Maximum Temp37.1(MAR 30 00:07)37.1(MAR 30:)37.1(MAR 30:) Resp RateH 22(MAR 30:18)20(MAR 30:)H 22(MAR 30 02:18) GKK366(MAR 30 00:07)104(MAR 30 00:07)104(MAR 30:07) DBP61(MAR 30:07)61(MAR 30:07)61(MAR 30:) Problem List/ Past Medical History Anxiety BMI 28.0-28.9,adult BPH with obstruction/lower urinary tract symptoms Back pain CAD in [place] artery CHF with unknown LVEF CKD (chronic kidney disease) stage 5, GFR less than 15 ml/min COPD with emphysema Chronic pain syndrome Chronic prescription benzodiazepine use Chronic prescription opiate use Dependence on renal dialysis Depression Diabetic neuropathy Diarrhea Erectile dysfunction Former smoker Gastritis Gout HLD (hyperlipidemia) HTN (hypertension) High risk medication use Hospital discharge follow-up Hx of lower gastrointestinal bleeding Hyperkalemia Hypotension Hypothyroidism Immunization due Immunization refused Iron deficiency Left arm numbness Long-term insulin use Malignant neoplasm of hepatic flexure Medicare annual wellness visit, subsequent Need for hepatitis C screening test Nocturia Normocytic anemia LADARIUS (obstructive sleep apnea) On amiodarone therapy Overweight Panic attacks Paresthesias Paroxysmal atrial fibrillation Peripheral vascular disease Screening due Screening for cardiovascular condition Screening for osteoporosis Screening for prostate cancer Secondary hyperparathyroidism Stented coronary artery Type 2 diabetes mellitus with nephropathy Vitamin D deficiency Arm paresthesia, left Procedure/ Surgical History Bowel: 10/17/17 Endoscope: 09/18/17 Echocardiogram: 05/14/17 Lobectomy of lun11/24/16 Thoracectomy: 11/24/16 Thoracic lymphadenopathy: 11/24/09 Tonsillectomy and adenoidectomy Coronary artery bypass grafts x 3 Medication List Active Medications Ordered acetaminophen: 650 mg, 2 tab(s), Oral, q6hWA, PRN: Pain, scale 1-10. albuterol: 2.5 mg, 3 mL, Inhalation, q2hRT, PRN: as needed for wheezing. albuterol-ipratropium: 3 mL, Inhalation, q4hRT. aspirin: 81 mg, 1 tab(s), Oral, Daily. atorvastatin: 20 mg, 1 tab(s), Oral, qHS. cefTRIAXone: 2 gram(s), 20 mL, 240 mL/hr, IV Push (INT), qDay. cilostazol: 100 mg, 1 tab(s), Oral, qDay. clopidogrel: 75 mg, 1 tab(s), Oral, qDay. diazePAM: 5 mg, 1 tab(s), Oral, BID. doxycycline: 100 mg, 10 mL, 250 mL/hr, IV Piggyback, q12h. escitalopram: 20 mg, 1 tab(s), Oral, qDay. finasteride: 5 mg, 1 tab(s), Oral, qDay. insulin glargine: 30 unit(s), 0.3 mL, 0 mL/hr, Subcutaneous (INT), BID. insulin lispro (HumaLOG): 25 unit(s), 0.25 mL, Subcutaneous, TID. isosorbide mononitrate: 15 mg, 0.5 tab(s), Oral, qAM. levothyroxine: 88 mcg, 1 tab(s), Oral, qDay. melatonin: 3 mg, 1 tab(s), Oral, qHS, PRN: Sleep. melatonin: 3 mg, 1 tab(s), Oral, qHS, PRN: Sleep. methylPREDNISolone: 60 mg, 0.96 mL, IV Push, q8h. ondansetron: 4 mg, 2 mL, IV Push, q4h, PRN: Nausea/Vomiting. ondansetron: 4 mg, 1 tab(s), Oral, q6h, PRN: Nausea/Vomiting. oxyCODONE: 5 mg, 1 tab(s), Oral, BID, PRN: Pain, scale 4-10. pantoprazole: 20 mg, 1 tab(s), Oral, qDay. Prescribed albuterol: 2 puff(s), Inhalation, QID, for 90 day(s), 3 EA, 1 Refill(s). albuterol: 2.5 mg, 3 mL, Inhalation, q4h, for 30 day(s), PRN: as needed for wheezing, 360 mL, 5 Refill(s). aspirin: 81 mg, 1 tab(s), Oral, Daily, for 90 day(s), 90 tab(s), 1 Refill(s). cholecalciferol: 4,000 International_Unit, 1 tab(s), Oral, qDay, for 90 day(s), 90 tab(s), 1 Refill(s). cilostazol: 100 mg, 1 tab(s), Oral, qDay, for 90 day(s), 90 tab(s), 1 Refill(s). clopidogrel: 75 mg, 1 tab(s), Oral, qDay, for 90 day(s), 90 tab(s), 1 Refill(s). diazePAM: 5 mg, 1 tab(s), Oral, BID, for 30 day(s), to fill on or after 03/21/2022, 60 tab(s), 0 Refill(s). DME: See Instructions, dispense one pulse oximeter; dx J43.9, R09.02., 1 EA, 0 Refill(s). DME: See Instructions, True metrix glucometer, 1 EA, 0 Refill(s). DME: See Instructions, dispense one glucometer; check BGT 4x/day, on insulin; dx E11.9 and Z79.4, 1 EA, 0 Refill(s). DME: See Instructions, check BGT 4x/day, dispense #[id number] test strips, 11 refills; on insulin; dx E11.9 and Z79.4, 150 EA, 11 Refill(s). DME: See Instructions, qs 1 month supply, testing QID. dx: E11.9 and Z79.4, 1 EA, 11 Refill(s). DME: See Instructions, One Touch Verio Glucose Meter #1 no refills, dx: E11.9, Z79.4, 1 EA, 0 Refill(s). escitalopram: 20 mg, 1 tab(s), Oral, qDay, for 90 day(s), 90 tab(s), 1 Refill(s). finasteride: 5 mg, 1 tab(s), Oral, qDay, for 90 day(s), 90 tab(s), 1 Refill(s). insulin glargine: 30 unit(s), Subcutaneous, BID, for 90 day(s), 54 mL, 1 Refill(s). insulin lispro (HumaLOG): 25 unit(s), Subcutaneous, TID, for 90 day(s), discontinue novolog, 24 mL, 1 Refill(s). isosorbide mononitrate: 15 mg, 0.5 tab(s), Oral, qAM, for 90 day(s), 45 tab(s), 1 Refill(s). levothyroxine: 88 mcg, 1 tab(s), Oral, qDay, 90 tab(s), 1 Refill(s). loperamide: See Instructions, take 1 capsule by mouth every 4 hours - 1 CAPSULE AFTER EACH LOOSE STOOL WITH A MAX OF 8 CAPS PER DAY, 90 cap(s), 1 Refill(s). naloxone: 1 spray(s), Intranasal, AsDirected, may repeat every 2 to 3 minutes until patient responds, PRN: see pharmacy notes, 2 EA, 0 Refill(s). oxyCODONE: 5 mg, 1 tab(s), Oral, BID, for 30 day(s), oarrs appropriate; to fill on or after 03/21/2022; has narcan, 60 tab(s), 0 Refill(s). pantoprazole: 20 mg, 1 tab(s), Oral, qDay, 90 tab(s), 1 Refill(s). rosuvastatin: 10 mg, 1 tab(s), Oral, qDay, for 90 day(s), 90 tab(s), 1 Refill(s). umeclidinium-vilanterol: 1 puff(s), Inhalation, qDay, for 90 day(s), 3 EA, 1 Refill(s). Medications Inactivated in the Last 72 Hours albuterol: 2.5 mg, 3 mL, Inhalation, q15min. albuterol-ipratropium: 3 mL, Inhalation, Once. cefTRIAXone: 2 gram(s), 200 mL/hr, IV Piggyback, Once. cefTRIAXone: Miscellaneous, Once. doxycycline: 100 mg, 10 mL, 250 mL/hr, IV Piggyback, Once. doxycycline: Miscellaneous, Once. insulin degludec: 30 unit(s), Subcutaneous, BID, for 90 day(s), 18 mL, 1 Refill(s). insulin lispro (HumaLOG): 25 unit(s), Subcutaneous, TID. methylPREDNISolone: 125 mg, 2 mL, IV Push, Once. .PharmacyCommunication: 1 EA, Miscellaneous, Unscheduled. Sodium Chloride 0.9% intravenous solution: Miscellaneous, Once. Sodium Chloride 0.9% intravenous solution: Miscellaneous, Once. Sodium Chloride 0.9% intravenous solution: 500 mL, IV Bolus, Once. Allergies NKA Social Hx Alcohol Details: Use: Never. 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 Nutrition/Health Details: Caffeine intake amount: 3 servings daily. Substance Abuse Details: Use: Never. Tobacco Details: Nicotine Use: 5-9 cigarettes (between 1/4 to 1/2 pack)/day in last 30 days, Former smoker,quit more than 30 days ago. Family Medical Hx Mother: COPD - Chronic obstructive pulmonary disease Father: Diabetes; Hypertension; Leukemia Code Status Code Status - Ordered -- 03/30/22 1:36:00 EST, Full Code, Constant Order I Víctor Antoine LPN, am scribing for Román Rincon NP, in the presence of Román Rincon. I Román Rincon NP, personally performed the services described in this documentation, as described by Víctor Antoine LPN in my presence and it is both accurate and complete. This document is transcribed using voice recognition software may contain typographical errors. Digitally Signed by ROMÁN RINCON on 03/30/2022 12:23 PM [id number] Respiratory therapy Hospital Progress note Respiratory Therapy Evaluation Entered On: 03/30/2022 2:18 EST Performed On: 03/30/2022 2:15 EST by Mehran Mcintosh Respiratory Therapy Evaluation Pulmonary Status : Smoking history >20 pack years Surgical Status : No surgeries Chest X-Ray : Infiltrates, atelectasis, pleural effusion Breath Sounds (RT) : Crackles or intermittent wheezes Respiratory Pattern (RT) : Increased RR=21-25 Cough (RT) : Strong, productive Respiratory Therapy Evaluation Score : 9 Level of Activity : Ambulatory Mental Status : Alert, oriented RT Assessment [Frequency/Schedule] : Q4 Mehran Mcintosh - 03/30/2022 2:15 EST Digitally Signed by Mehran Mcintosh on 03/30/2022 02:15 AM [id number] History and physical note Date of Service 03/30/22 Chief Complaint Cough. History of Present Illness 60-year-old male with history of PVD, anxiety, depression, BPH, DM on insulin, HTN, hypothyroidism,HLD, chronic pain, COPD sometimes requiring home O2, ESRD on HD presents to the hospital as a transfer from [place] for SOB. History is obtained by colleague except the patient, patient, chart review. He endorses cough productive of phlegm. Started this past Friday and has been progressive since that time. Denies any missed episodes of dialysis. Has been refractory to his home nebulizers. Denies any antibiotic usage within the past 3 months. Currently denies any headache, chest pain, abdominal pain. No additional complaints. In the emergency department he was tachycardic with rate up to 125. Elevated oral temperature at 37.4. Hypoxic to 74% on room air, currently 94% on 3 L NC. BP stable. ABG shows hypoxia with elevated bicarbonate and CO2. Alkalotic with pH 7.51. CBC shows leukocytosis 11. Anemia at 10.7. Monocyte distribution with is elevated. Initial lactic acid 3.7 with recheck 2.8. BMP was sodium, potassium, calcium normal. Glucose 145. ECG shows sinus tachycardia. CT angiography chest shows no evidence of PE. Widespread tree-in-bud opacities and multifocal nodular areas of consolidation may relate to atypical pneumonia. Recommended follow-up to ensure resolution. Lymphadenopathy may be reactive. Age-indeterminate mild compression deformity in the lower thoracic spine. No discrete nodules in the lungs. Given history of malignancy, continue surveillance advised. He was given ceftriaxone, doxycycline, breathing treatments, steroids. Review of Systems Pertinent review of systems are included in the HPI. All other systems were reviewed and are negative for acute changes from the patient's baseline. Physical Exam Vitals and Measurements T: 37.1 C (Oral) HR: 90 RR: 20 BP: 104/61 SpO2: 94% HT: 108 cm WT: 86.1 kg BMI: 73.82 Weight Dosing Weight: 86.1 kg (03/30/22) GA: Alert and oriented x3, no acute distress Abd: Not distended HEENT: NCAT, sclera anicteric, oral mucosa moist Pulmonary: Inspiratory crackles appreciated. Breath sounds are diminished. MSK: No gross deformities Cardiovascular: Not tachycardic. No lower extremity edema. Skin: Warm and dry Neuro: Spontaneous movement of all extremities, cranial nerves II through XII grossly normal Psychiatric: Thought content, associations, attention are all normal. Lab Results pH: 7.51 High (03/29/22 14:50:00) pCO2: 38.9 mm Hg (03/29/22 14:50:00) pO2: 47 mm Hg Low (03/29/22 14:50:00) HCO3: 30.8 mmol/L High (03/29/22 14:50:00) CO2 Totl: 32 mmol/L High (03/29/22 14:50:00) Base Excess: 8 mmol/L High (03/29/22 14:50:00) O2 Sat: 87 % Low (03/29/22 14:50:00) WBC: 11 10^3/mcL High (03/29/22 15:13:00) RBC: 3.7 10^6/mcL Low (03/29/22 15:13:00) Hgb: 10.7 G/dL Low (03/29/22 15:13:00) Hct: 32.6 % Low (03/29/22 15:13:00) MCV: 88.2 fL (03/29/22 15:13:00) MCH: 28.9 pg (03/29/22 15:13:00) MCHC: 32.8 G/dL (03/29/22 15:13:00) RDW: 13.8 % (03/29/22 15:13:00) Platelet: 246 10^3/mcL (03/29/22 15:13:00) MPV: 9.8 fL (03/29/22 15:13:00) Monocyte Distribution Width: 25.74 High (03/29/22 15:13:00) Neutrophil %: 85.1 % High (03/29/22 15:13:00) Lymphocyte %: 5 % Low (03/29/22 15:13:00) Monocyte %: 9.6 % (03/29/22 15:13:00) Eosinophil %: 0.1 % (03/29/22 15:13:00) Basophil %: 0.2 % (03/29/22 15:13:00) Neutrophil, Absolute: 9.4 10^3/mcL High (03/29/22 15:13:00) Lymphocyte, Absolute: 0.5 10^3/mcL Low (03/29/22 15:13:00) Monocyte, Absolute: 1.1 10^3/mcL High (03/29/22 15:13:00) Eosinophil, Absolute: 0 10^3/mcL (03/29/22 15:13:00) Basophil, Absolute: 0 10^3/mcL (03/29/22 15:13:00) Glucose Level: 145 mg/dL High (03/29/22 15:13:00) Sodium Level: 139 mmol/L (03/29/22 15:13:00) Potassium Level: 3.8 mmol/L (03/29/22 15:13:00) Chloride: 97 mmol/L Low (03/29/22 15:13:00) CO2: 31 mmol/L (03/29/22 15:13:00) Electrolyte Balance: 11 mEq/L (03/29/22 15:13:00) BUN: 38 mg/dL High (03/29/22 15:13:00) Creatinine Lvl (s): 3.8 mg/dL High (03/29/22 15:13:00) BUN/Creatinine Ratio: 10 ratio (03/29/22 15:13:00) Calcium Lvl: 8.7 mg/dL (03/29/22 15:13:00) GFR Non-: 16 ml/min/1.73sqm (01/13/23 15:13:00) GFR : 19 ml/min/1.73sqm (03/29/22 15:13:00) Lactic Acid Lvl: 2.8 mmol/L High (03/29/22 17:47:00) N-Terminal proBNP: 13850 pg/mL High (03/29/22 15:13:00) Troponin I High Sensitivity: 64 ng/L (03/29/22 15:13:00) COVID-19 Result: Negative. (03/29/22 15:13:00) COVID-19 Int: COVID-19 Int (03/29/22 15:13:00) Flu A PCR (AO): Negative.1 (03/29/22 15:13:00) Flu B PCR (AO): Negative.1 (03/29/22 15:13:00) RSV PCR (AO): Negative.1 (03/29/22 15:13:00) Lab Performed By: Pat Sanchez (03/29/22 14:37:00) Lab Performing Location: [address] (03/29/22 14:37:00) Influenza A (AMB POC): Negative (03/29/22 14:37:00) Influenza B (AMB POC): Negative (03/29/22 14:37:00) Assessment/Plan Acute hypoxic respiratory failure. Patient with only intermittent home O2 requirement now noted to be hypoxic to 70s on room air. He is currently stable on 3 L NC at 94%. Suspect related to multifocal pneumonia and COPD exacerbation. -Continue supplemental O2 and wean as tolerated. Multifocal pneumonia. Patient with a cough productive of yellow sputum. Leukocytosis. CT angiography chest shows tree-in-bud opacities. Recommended follow-up after illness to ensure complete resolution. The patient has nodules which may be concerning. -We will cover with Rocephin and doxycycline, doxycycline may be discontinued if atypicals are negative -Strep pneumo, mycoplasma, Legionella antigen COPD exacerbation. Patient with diminished breath sounds throughout on auscultation. He has been using his home nebulizers with no relief. Received initial treatment in the [place] ED with somewhat improvement in symptoms. -Solu-Medrol 60 mg every 8 hours -DuoNebs every 4 hours -As needed albuterol ESRD on HD. 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 We will consult nephrology here fordialysis. CHF. BNP was significantly elevated but the patient has no lower extremity edema and his chest imaging is more consistent with multifocal pneumonia. Peripheral vascular disease. Currently asymptomatic. Continue aspirin, Plavix, cilostazol. Anxiety. Continue diazepam. Depression. Continue Lexapro. BPH. Asymptomatic. Continue finasteride. DM on insulin. Anticipate the patient's insulin requirement will increase as he is receiving steroids for treatment of COPD exacerbation. Continue home insulin. HTN. Continue isosorbide. Hypothyroidism. Continue levothyroxine. Chronic pain. Continue oxycodone as needed. HLD. Continue rosuvastatin. CAD. No CP. No concerning ECG changes. DVT prophylaxis: SCDs Note dictated using voice recognition software and may contain typographical errors. Problem List/Past Medical History Ongoing Anxiety Back pain BMI 28.0-28.9,adult BPH with obstruction/lower urinary tract symptoms CAD in [place] artery CHF with unknown LVEF Chronic pain syndrome Chronic prescription benzodiazepine use Chronic prescription opiate use CKD (chronic kidney disease) stage 5, GFR less than 15 ml/min COPD with emphysema Dependence on renal dialysis Depression Diabetic neuropathy Diarrhea Erectile dysfunction Former smoker Gastritis Gout High risk medication use HLD (hyperlipidemia) Hospital discharge follow-up HTN (hypertension) Hx of lower gastrointestinal bleeding Hyperkalemia Hypotension Hypothyroidism Immunization due Immunization refused Iron deficiency Left arm numbness Long-term insulin use Malignant neoplasm of hepatic flexure Medicare annual wellness visit, subsequent Need for hepatitis C screening test Nocturia Normocytic anemia On amiodarone therapy LADARIUS (obstructive sleep apnea) Overweight Panic attacks Paresthesias Paroxysmal atrial fibrillation Peripheral vascular disease Screening due Screening for cardiovascular condition Screening for osteoporosis Screening for prostate cancer Secondary hyperparathyroidism Stented coronary artery Type 2 diabetes mellitus with nephropathy Vitamin D deficiency Historical Arm paresthesia, left Procedure/Surgical History Bowel: 10/17/17 Endoscope: 09/18/17 Echocardiogram: 05/14/17 Lobectomy of lun11/24/16 Thoracectomy: 11/24/16 Thoracic lymphadenopathy: 11/24/09 Tonsillectomy and adenoidectomy Coronary artery bypass grafts x 3 Medications Home Medications (25) Active albuterol MDI (90 mcg/inh) CFC free inhalation aerosol 2 puff(s), Inhalation, QID albuterol 2.5 mg/3 mL (0.083%) inhalation solution 2.5 mg = 3 mL, PRN, Inhalation, q4h Anoro Ellipta 62.5 mcg-25 mcg/inh inhalation powder 1 puff(s), Inhalation, qDay aspirin 81 mg oral delayed release tablet 81 mg = 1 tab(s), Oral, Daily Blood Glucose Test Machine See Instructions Blood Glucose Test Machine See Instructions Blood Glucose Test Strips See Instructions cholecalciferol 100 mcg (4000 intl units) oral tablet 4,000 International_Unit = 1 tab(s), Oral, qDay cilostazol 100 mg oral tablet 100 mg = 1 tab(s), Oral, qDay clopidogrel 75 mg oral tablet 75 mg = 1 tab(s), Oral, qDay diazePAM 5 mg oral tablet 5 mg = 1 tab(s), Oral, BID DME MISCellaneous See Instructions DME MISCellaneous See Instructions finasteride 5 mg oral tablet 5 mg = 1 tab(s), Oral, qDay HumaLOG KwikPen 100 units/mL injectable PEN 25 unit(s), Subcutaneous, TID isosorbide mononitrate 30 mg oral tablet, extended release 15 mg = 0.5 tab(s), Oral, qAM Lancets See Instructions Lantus Solostar Pen 100 units/mL 3 mL Pen 30 unit(s), Subcutaneous, BID levothyroxine 88 mcg (0.088 mg) oral tablet 88 mcg = 1 tab(s), Oral, qDay Lexapro 20 mg oral tablet 20 mg = 1 tab(s), Oral, qDay loperamide 2 mg oral capsule See Instructions Narcan 4 mg/0.1 mL nasal spray 1 spray(s), PRN, Intranasal, AsDirected oxyCODONE 5 mg oral tablet ( IMMEDIATE release ) 5 mg = 1 tab(s), Oral, BID pantoprazole 20 mg oral enteric coated tablet 20 mg = 1 tab(s), Oral, qDay rosuvastatin 10 mg oral tablet 10 mg = 1 tab(s), Oral, qDay Allergies NKA Social History Alcohol Use: Never., 12/30/2018 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 Diabetes: Father. Hypertension: Father. Leukemia: Father. Immunizations hepatitis B adult vaccine: 20 mcg (10/31/20) pneumococcal 13-valent conjugate vaccine: 0.5 mL (10/31/20) pneumococcal 13-valent conjugate vaccine: 0 unknown unit (07/16/11) pneumococcal 23-valent vaccine(Pneumovax: 0.5 mL (01/17/22) Code Status Code Status - Ordered -- 03/30/22 1:36:00 EST, Full Code, Constant Order Digitally Signed by KLAUS MEDEIROS MD on 03/30/2022 01:47 AM [id number] Note ORIGINAL EXAMINATION: CTA OF THE CHEST 03/29/2022 5:04 pm TECHNIQUE: CTA of the chest was performed after the administration of intravenous contrast. Multiplanar reformatted images are provided for review. MIP images are provided for review. Automated exposure control, iterative reconstruction, and/or weight based adjustment of the mA/kV was utilized to reduce the radiation dose to as low as reasonably achievable. COMPARISON: Same day chest radiograph. HISTORY: ORDERING SYSTEM PROVIDED HISTORY: Reason for Exam: chest pain; suspect PE. Lung and colon cancer FINDINGS: Pulmonary Arteries: Pulmonary arteries are adequately opacified for evaluation. No evidence of intraluminal filling defect to suggest pulmonary embolism. Main pulmonary artery is normal in caliber. Mediastinum: There are enlarged right paratracheal and subcarinal lymph nodes measuring up to 1.2 cm. Left hilar adenopathy measuring up to 1.1 cm. Interstitial thickening seen along the right bronchovascular bundle. Pre-vascular adenopathy also noted.. Coronary artery calcifications and/or stents. The heart and pericardium demonstrate no acute abnormality. There is no acute abnormality of the thoracic aorta. Lungs/pleura: There is likely emphysema. Right upper lobectomy changes. Other wedge resection defects visible.. Scattered pleural and parenchymal scarring. Tree-in-bud opacities are scattered throughout the lungs, most prevalent in the lower lung zones.. Confluent consolidations seen in the right and left lower lobes... No pleural effusion or pneumothorax. There are few scattered discrete nodules which may be unrelated to the presumed infectious/inflammatory process. A inbound sales representative lingula nodule measures 5 mm. A inbound sales representative right lower lobe nodule measures 7 mm on image 115 Upper Abdomen: Limited images of the upper abdomen are unremarkable. Soft Tissues/Bones: Bilateral gynecomastia. Remodeled deformity of the posterolateral right 6th rib. There is an age indeterminate anterior wedge compression deformity in the lower thoracic spine.. IMPRESSION: No evidence of pulmonary embolism. Widespread tree-in-bud opacities and multifocal nodular areas of consolidation may relate to atypical pneumonia. After appropriate therapy, follow-up is advised to ensure resolution. Lymphadenopathy may be reactive. Again, follow to resolution. Age indeterminate mild compression deformity in the lower thoracic spine. There also nonspecific discrete nodules in the lungs which may be unrelated to the presumed infectious/inflammatory disease. Given the history of malignancy, continued surveillance advised I have personally reviewed the images of this examination and agree with the resident's findings and interpretation. Interpreted by: Mehran Sandoval MD Preliminary Report By: Jax Balderrama Electronically signed By Mehran Sandoval MD Dictated Date: 03/29/2022 5:14:39 PM Prelim Date: 03/29/2022 5:26:30 PM Sign Date: 03/29/2022 6:22:37 PM Ordering Provider: [facility]01-13-2023 Note ORIGINAL EXAMINATION: CTA OF THE CHEST 03/29/2022 5:04 pm TECHNIQUE: CTA of the chest was performed after the administration of intravenous contrast. Multiplanar reformatted images are provided for review. MIP images are provided for review. Automated exposure control, iterative reconstruction, and/or weight based adjustment of the mA/kV was utilized to reduce the radiation dose to as low as reasonably achievable. COMPARISON: Same day chest radiograph. HISTORY: ORDERING SYSTEM PROVIDED HISTORY: Reason for Exam: chest pain; suspect PE. Lung and colon cancer FINDINGS: Pulmonary Arteries: Pulmonary arteries are adequately opacified for evaluation. No evidence of intraluminal filling defect to suggest pulmonary embolism. Main pulmonary artery is normal in caliber. Mediastinum: There are enlarged right paratracheal and subcarinal lymph nodes measuring up to 1.2 cm. Left hilar adenopathy measuring up to 1.1 cm. Interstitial thickening seen along the right bronchovascular bundle. Pre-vascular adenopathy also noted.. Coronary artery calcifications and/or stents. The heart and pericardium demonstrate no acute abnormality. There is no acute abnormality of the thoracic aorta. Lungs/pleura: There is likely emphysema. Right upper lobectomy changes. Other wedge resection defects visible.. Scattered pleural and parenchymal scarring. Tree-in-bud opacities are scattered throughout the lungs, most prevalent in the lower lung zones.. Confluent consolidations seen in the right and left lower lobes... No pleural effusion or pneumothorax. There are few scattered discrete nodules which may be unrelated to the presumed infectious/inflammatory process. A inbound sales representative lingula nodule measures 5 mm. A inbound sales representative right lower lobe nodule measures 7 mm on image 115 Upper Abdomen: Limited images of the upper abdomen are unremarkable. Soft Tissues/Bones: Bilateral gynecomastia. Remodeled deformity of the posterolateral right 6th rib. There is an age indeterminate anterior wedge compression deformity in the lower thoracic spine.. IMPRESSION: No evidence of pulmonary embolism. Widespread tree-in-bud opacities and multifocal nodular areas of consolidation may relate to atypical pneumonia. After appropriate therapy, follow-up is advised to ensure resolution. Lymphadenopathy may be reactive. Again, follow to resolution. Age indeterminate mild compression deformity in the lower thoracic spine. There also nonspecific discrete nodules in the lungs which may be unrelated to the presumed infectious/inflammatory disease. Given the history of malignancy, continued surveillance advised I have personally reviewed the images of this examination and agree with the resident's findings and interpretation. Interpreted by: Mehran Sandoval MD Preliminary Report By: Jax Balderrama Electronically signed By Mehran Sandoval MD Dictated Date: 03/29/2022 5:14:39 PM Prelim Date: 03/29/2022 5:26:30 PM Sign Date: 03/29/2022 6:22:37 PM Ordering Provider: [facility]3]01-13-2023 Note ORIGINAL EXAMINATION: ONE XRAY VIEW OF THE CHEST03/29/2022 3:37 pm COMPARISON: None HISTORY: ORDERING SYSTEM PROVIDED HISTORY: Reason for Exam: SOB/cough/fever FINDINGS: Borderline cardiomegaly. No obvious vascular congestion. There is some blunting of the right costophrenic angle from pleural thickening or effusion. Both lungs have interstitial and ground-glass type of opacities of uncertain chronicity. There is also a right upper lobe nodular density of 2.2 cm that is not typical for pneumonia with some adjacent infiltrates. IMPRESSION: Abnormal findings that should be evaluated further with PA and lateral views. Interstitial opacities may be from chronic interstitial disease or pneumonia. There is masslike right upper lobe nodule concerning for neoplasm that should be evaluated with a CT of the chest. Right pleural effusion/thickening. Interpreted by: Jone Zelaya MD Preliminary Report By: Jone Zelaya MD Electronically signed By Jone Zelaya MD Dictated Date: 03/29/2022 3:54:18 PM Prelim Date: 03/29/2022 3:55:35 PM Sign Date: 03/29/2022 3:55:35 PM Ordering Provider: [facility]01-13-2023 Note ORIGINAL EXAMINATION: ONE XRAY VIEW OF THE CHEST03/29/2022 3:37 pm COMPARISON: None HISTORY: ORDERING SYSTEM PROVIDED HISTORY: Reason for Exam: SOB/cough/fever FINDINGS: Borderline cardiomegaly. No obvious vascular congestion. There is some blunting of the right costophrenic angle from pleural thickening or effusion. Both lungs have interstitial and ground-glass type of opacities of uncertain chronicity. There is also a right upper lobe nodular density of 2.2 cm that is not typical for pneumonia with some adjacent infiltrates. IMPRESSION: Abnormal findings that should be evaluated further with PA and lateral views. Interstitial opacities may be from chronic interstitial disease or pneumonia. There is masslike right upper lobe nodule concerning for neoplasm that should be evaluated with a CT of the chest. Right pleural effusion/thickening. Interpreted by: Jone Zelaya MD Preliminary Report By: Jone Zelaya MD Electronically signed By Jone Zelaya MD Dictated Date: 03/29/2022 3:54:18 PM Prelim Date: 03/29/2022 3:55:35 PM Sign Date: 03/29/2022 3:55:35 PM Ordering Provider: [facility]3]01-13-2023 SARS-CoV-2 (COVID-19) RNA GUANACO+probe Ql (Nph)Negative *NA* (03/29/22 3:13 PM)AO Auto Urine [id number] Note ORIGINAL EXAMINATION: BONE DENSITOMETRY 03/12/2022 11:32 am TECHNIQUE: A bone density dual x-ray absorptiometry (DEXA) scan was performed of the lumbar spine and left hip on a Hologic system. COMPARISON: None. HISTORY: ORDERING SYSTEM PROVIDED HISTORY: Reason for Exam: Osteoporosis Screening FINDINGS: LEFT HIP: The bone mineral density in the total hip is measured at 0.873 g/cm2 corresponding to a T-score of -1.1. This is within the osteopenic range by WHO criteria. The bone mineral density of the femoral neck is measured at 0.606 g/cm2 corresponding to a T-score of -2.4. This is within the osteopenic range by WHO criteria. Lumbar Spine: The bone mineral density of the lumbar spine, L1 through L4 is measured at 0.876 g/cm2 corresponding to a T-score of -2.0. This is within the osteopenic range by WHO criteria. 10 year fracture risk: Major osteoporotic fracture, 16%. Hip fracture, 5.7%. IMPRESSION: Osteopenia by WHO criteria. Interpreted by: Coby Perez Preliminary Report By: Coby Perez Electronically signed By Coby Perez Dictated Date: 03/12/2022 12:58:16 PM Prelim Date: 03/12/2022 1:00:01 PM Sign Date: 03/12/2022 1:00:01 PM Ordering Provider: [facility]12-27-2022 Note ORIGINAL EXAMINATION: BONE DENSITOMETRY 03/12/2022 11:32 am TECHNIQUE: A bone density dual x-ray absorptiometry (DEXA) scan was performed of the lumbar spine and left hip on a Hologic system. COMPARISON: None. HISTORY: ORDERING SYSTEM PROVIDED HISTORY: Reason for Exam: Osteoporosis Screening FINDINGS: LEFT HIP: The bone mineral density in the total hip is measured at 0.873 g/cm2 corresponding to a T-score of -1.1. This is within the osteopenic range by WHO criteria. The bone mineral density of the femoral neck is measured at 0.606 g/cm2 corresponding to a T-score of -2.4. This is within the osteopenic range by WHO criteria. Lumbar Spine: The bone mineral density of the lumbar spine, L1 through L4 is measured at 0.876 g/cm2 corresponding to a T-score of -2.0. This is within the osteopenic range by WHO criteria. 10 year fracture risk: Major osteoporotic fracture, 16%. Hip fracture, 5.7%. IMPRESSION: Osteopenia by WHO criteria. Interpreted by: Coby Perez Preliminary Report By: Coby Perez Electronically signed By Coby Perez Dictated Date: 03/12/2022 12:58:16 PM Prelim Date: 03/12/2022 1:00:01 PM Sign Date: 03/12/2022 1:00:01 PM [facility] Appointment Date:11/22/2021 03:30:00 PM Scheduled Provider:[facility] Type:PC OV Appointment Date:01/17/2022 03:30:00 PM Scheduled Provider:INES STAUFFER DO [facility] Type: Wellness Medicare Future Scheduled Tests Laboratory* Benzodiazepine Confirmation Urine 10/04/21 * Benzodiazepine Confirmation Urine 08/24/21 * Prostate Specific Antigen 07/12/21 * Thyroid Stimulating Hormone 07/12/21 * Complete Blood Count 07/12/21 * Lipid Profile 07/12/21 * Hepatitis C Antibody IgG 07/12/21 * Microalbumin Level Urine 07/12/21 * Renal Function Panel 05/10/21 * Complete Metabolic Panel 07/12/21 [facility] Evaluation + Plan note Future Appointments Appointment Date:03/21/2022 03:30:00 PM Scheduled Provider:INES STAUFFER DO Location:[facility] Appointment Type:PC OV Future Scheduled Tests Laboratory* Ferritin 01/17/22 * Prostate Specific Antigen 01/17/22 * Thyroid Stimulating Hormone 01/17/22 * Complete Blood Count 01/17/22 * Lipid Profile 01/17/22 * Hepatitis C Antibody IgG 01/17/22 * Microalbumin Level Urine 01/17/22 * Renal Function Panel 01/17/22 * Complete Metabolic Panel 01/17/22 [facility] Evaluation + Plan note Future Appointments Appointment Date:04/25/2022 03:00:00 PM Scheduled Provider:INES STAUFFER DO Location:[facility] Appointment Type:PC OV Future Scheduled Tests Laboratory* Ferritin 01/17/22 * Hepatic Function Panel 03/21/22 * Prostate Specific Antigen 01/17/22 * Prostate Specific Antigen 03/21/22 * Thyroid Stimulating Hormone 01/17/22 * Thyroid Stimulating Hormone 03/21/22 * Free T4 03/21/22 * Uric Acid 03/21/22 * A1C Hemoglobin 03/21/22 * Complete Blood Count 01/17/22 * Complete Blood Count 03/21/22 * Lipid Profile 01/17/22 * Lipid Profile 03/21/22 * Hepatitis C Antibody IgG 01/17/22 * Hepatitis C Antibody IgG 03/21/22 * Microalbumin Level Urine 01/17/22 * Microalbumin Level Urine 03/21/22 * Renal Function Panel 01/17/22 * Renal Function Panel 03/21/22 * Vitamin D Level 03/21/22 * Complete Metabolic Panel 01/17/22 [facility] Hospital course Narrative No data available for this section [facility] Hospital Discharge instructions No data available for this section [facility] Note* MD JAISON SAVAGE MD: SIGN, VERIFY Event Display: EKG [ED AO] - CV Authored Date: [facility] Progress note No data available for this section [facility] Summary Purpose Family History No Family History Records Found Advance Directives No Advanced Directives Records Found Additional Source Comments Care Team (unrecognized sect ion and content) Care Team Personnel Name: INES STAUFFER DO Position: P4 Physician - Primary Care Med Service: Active Provider Member Role: Primary Care Physician Address: Address: [address] [place] [address] Care Team Related Persons Name: ELENI FLORES Care [place] Personnel Name: INES STAUFFER DO Position: P4 Physician - Primary Care Member Role: Primary Care Physician Address: Address: [address] [place] [address] Care Team Related Persons Name: ELENI FLORES Care Team Personnel Name: INES STAUFFER DO Position: P4 Physician - Primary Care Member Role: Primary Care Physician Address: Address: [address] [place] [address] Name: DEVEN Urban Position: AO RN Member Role: ED RN Name: MD JAISON SAVAGE MD Position: ED Physician Member Role: ED Physician Address: Address: [facility] [address] [place] [id number] Name: More Morales APRN-DIRECTOR OF MARKETING [employer] Position: AO RN Member Role: RN Chart Reviewer Care Team Related Persons Name: ELENI FLORES Care Team Personnel Name: INES STAUFFER DO Position: P4 Physician - Primary Care Member Role: Primary Care Physician Address: Address: [address] [place] [address] Care Team Related Persons Name: SANDRA, ELENI (unrecognized sect ion and content) No Status Records Found INFORMATION SOURCE (unrecogn ized section and content) FOR RECORDS PERTAINING TO PATIENTS WHO ARE OR HAVE BEEN ENROLLED IN A CHEMICAL DEPENDENCY/SUBSTANCEABUSE PROGRAM, SOME INFORMATION MAY BE OMITTED. This clinical summary was aggregated from multiple sources. Caution should be exercised in using it in the provision of clinical care. This summary normalizes information from multiple sources, and as a consequence, information in this document may materially change the coding, format and clinical context of patient data. In addition, data may be omitted in some cases. CLINICAL DECISIONS SHOULD BE BASED ON THE PRIMARY CLINICAL RECORDS. [facility] [employer] [facility]. provides no warranty or guarantee of the accuracy or completeness of information in this document.
[2023-04-23 08:20] LABS: Absolute Lymphocyte Count 0.87 X10^3/uL (0.83-4.51); Absolute Neutrophil Count 6.9 X10^3/uL (2.0-7.7); Basophil# 0.04 X10^3/uL; Basophil% 0.5 % (0-1); Eosinophil# 0.07 X10^3/uL; Eosinophils% 0.8 % (0-5); Hematocrit 18.2 % (40-54); Hemoglobin 5.2 g/dL (13.0-16.5); Lymphocyte # 0.87 X10^3/ul (0.83-4.51); Lymphocyte % 10.4 % (19-41); Mean Corp Hgb Conc 28.6 g/dL (32-36); Mean Corpuscular Hgb 29.7 pg (27.0-32.0); Mean Platelet Vol. 12.3 fl (6.2-12.0); Monocyte# 0.48 X10^3/uL; Monocyte% 5.7 % (0-10); NRBC Flagged by Analyzer 0 % (0-5); Neutrophil % 82.1 % (47-70); POSITIVE COUNT YES; POSITIVE MORPHOLOGY YES; Platelet Count 239 K/mm3 (150-450); RBC Distribution Width CV 18.3 % (11.6-14.6); RBC Distribution Width SD 66.2 fl (35.1-43.9); Red Blood Count 1.75 M/mm3 (4.6-6.2); White Blood Count 8.4 K/mm3 (4.4-11.0)
[2023-04-23 08:23] LABS: Differential Indicated SCAN CRITERIA MET
[2023-04-23 08:28] LABS: International Normalized Ratio 1.2; Prothrombin Time (Protime)PT. 14.9 SECONDS (11.7-14.9)
[2023-04-23 08:29] LABS: Partial Thromboplast Time 36.8 Seconds (24.1-36.2)
[2023-04-23 08:33] LABS: ALB/GLOB Ratio 0.8 RATIO (0.9-2.4); AST(SGOT) 5 U/L (15-37); Alanine Aminotransfer ALT/SGPT 14 U/L (16-61); Albumin, Serum 2.8 g/dL (3.2-5.0); Alkaline Phosphatase 122 U/L (45-117); Anion Gap 9 (5-15); BUN 54 mg/dL (7-18); BUN/Creat Ratio 7.5 RATIO (10-20); Chloride 101 mmol/L (98-107); Creatinine, Serum 7.24 mg/dL (0.70-1.30); EST Glomerular Filtration Rate 8 mL/min (>60); Est Glom Filt Rate - Afr Amer 10 mL/min (>60); Globulin 3.3 g/dL (2.2-4.2); Glucose 225 mg/dL (74-106); Potassium 3.9 mmol/L (3.5-5.1); Protein, Total 6.1 g/dL (6.4-8.2); Sodium Level 136 mmol/L (136-145)
[2023-04-23 08:43] LABS: Anisocytosis 2+; Differential Comment SCANNED
--- NOTE | 2023-04-23 08:52 | HP.PCM.HOS_ITS ---
HPI - General General Date of Admission: 04/23/23 Date of Service: 04/23/23 Chief Complaint: Fatigue HPI Narrative BARI KELLY, is a 67 M who presents with fatigue. Patient has significant medical comorbidities including coronary artery diseaseWith history of multi vessel angioplasty on dual antiplatelet therapy, end-stage renal disease on hemodialysis who presents with fatigue. Symptoms have been ongoing for the past week. Patient also noticed some dark stools. He was scheduled to undergo dialysis on the morning of his presentation was however called and informed to present to the emergency department. In the ED patient was found to be anemic with hemoglobin of 5.2. Admitted to regular nursing floor following consultation to GI. [facility] Medical History (Updated 04/23/23 @ 08:[address] Sher Vazquez MD) Acute HFrEF (heart failure with reduced ejection fraction) Acute respiratory failure with hypoxemia Anemia of chronic renal failure Anxiety Atherosclerosis of coronary artery of [place] heart without angina pectoris Back pain C. difficile colitis Cancer Cholelithiasis Chronic renal failure, stage 4 (severe) Colon cancer COPD (chronic obstructive pulmonary disease) CPAP (continuous positive airway pressure) dependence Depression DM type 2 causing CKD stage 4 Elevated troponin Former smoker Gastric reflux Gout Heme + stool Hemorrhoids High cholesterol History of GI bleed History of IBS Hyperkalemia, diminished renal excretion Hyperlipidemia Hypertension Hyponatremia Hypotension, unspecified Increased PTH level Infectious encephalopathy Iron deficiency anemia Ischemic cardiomyopathy Low vitamin D level Lower GI bleed Metabolic acidosis Myocardial infarct Nocturnal hypoxia Non-STEMI (non-ST elevated myocardial infarction) Noncompliance with CPAP treatment NSAID long-term use NSTEMI (non-ST elevated myocardial infarction) (07/2018) NSVT (nonsustained ventricular tachycardia) On home oxygen therapy LADARIUS (obstructive sleep apnea) Paroxysmal atrial fibrillation Peripheral vascular disease Pseudomembranous enterocolitis Radiculopathy affecting upper extremity Septic shock Severe sepsis Shortness of breath on exertion Skin tear Sleep apnea Stage 3 severe COPD by GOLD classification Streptococcal pneumonia Uremia of renal origin Urinary retention due to benign prostatic hyperplasia Wears dentures Home Medications oxycodone 5 mg tablet 5 mg PO BID PRN PRN Pain 05/14/17 [History Last Taken 04/28/22] finasteride 5 mg tablet 5 mg PO DAILY prostate 09/15/17 [History Last Taken 04/28/22] isosorbide mononitrate 30 mg tablet,extended release 24 hr 15 mg PO DAILY heart 09/15/17 [History Last Taken 04/28/22] diazepam 5 mg tablet 5 - 10 mg PO BID PRN anxiety 05/12/18 [History Last Taken 04/29/22] escitalopram oxalate 20 mg tablet (Lexapro) 20 mg PO DAILY depression 09/30/19 [History Last Taken 04/28/22] ipratropium 0.5 mg-albuterol 3 mg (2.5 mg base)/3 mL nebulization soln 3 ml inhalation Q4H PRN shortness of breath or wheezing 09/30/19 [History Last Taken 04/28/22] levothyroxine 88 mcg tablet 88 mcg PO DAILY thyroid 12/07/19 [History Last Taken 04/28/22] albuterol sulfate 90 mcg/actuation aerosol inhaler 2 puff inhalation 4X/DAY breathing 04/28/21 [History Last Taken 04/29/22] cholecalciferol (vitamin D3) 50 mcg (2,000 unit) capsule (Vitamin D3) 2,000 unit PO DAILY vitamin 04/28/21 [History Last Taken 04/28/22] loperamide 2 mg capsule 2 mg PO Q4H PRN PRN Constipation 04/28/21 [History Last Taken 04/26/22] rosuvastatin 10 mg tablet 10 mg PO DAILY cholesterol 04/28/21 [History Last Taken 04/28/22] clopidogrel 75 mg tablet 75 mg PO DAILY HEART 04/01/22 [History Last Taken 04/28/22] insulin degludec 100 unit/mL (3 mL) subcutaneous pen (Tresiba FlexTouch U-100 insulin) 20 - 25 unit subcut BID diabetes 04/01/22 [History Last Taken 04/29/22] insulin lispro 100 unit/mL subcutaneous pen See Rx Instructions .Route .COMPLEX DM 04/01/22 [History Last Taken 04/29/22] ferrous sulfate 325 mg (65 mg iron) tablet,delayed release 325 mg PO QODAY supplement #30 tabs 05/03/22 [Rx Last Taken 04/28/22] pantoprazole 40 mg tablet,delayed release 40 mg PO BID #60 tabs 05/03/22 [Rx Last Taken Unknown] sennosides 8.6 mg-docusate sodium 50 mg tablet (Stool Softener-Stimulant Laxative) 2 tab PO BID #0 tabs 05/03/22 [Rx Last Taken Unknown] sodium chloride 0.65 % nasal spray aerosol (Deep Sea Nasal) 2 spray NASAL Q4H PRN PRN Nasal Dryness #0 mL 05/03/22 [Rx Last Taken Unknown] guaifenesin 1,200 mg tablet, extended release 12 hr (Mucus Relief ER) 1,200 mg PO BID COUGH #60 tabs 09/10/22 [Rx Last Taken Unknown] nitroglycerin 0.4 mg sublingual tablet 0.4 mg sublingual Q5M PRN Chest Pain #25 tabs 11/21/22 [Rx Last Taken Unknown] fluticasone fur. 200 mcg-umeclid 62.5 mcg-vilant 25 mcg inhalat.powder (Trelegy Ellipta) 1 inh inhalation DAILY SHORTNESS OF BREATH #60 ea 04/07/23 [Rx Last Taken Unknown] Allergy/AdvReac Type Severity Reaction Status Date / Time No Known Allergies Allergy Verified 04/23/23 07:06 Family History Father Leukemia Mother COPD (chronic obstructive pulmonary disease) Surgical History H/O colectomy H/O pneumonectomy History of coronary artery stent placement (02/28/21) History of esophagogastroduodenoscopy (EGD) History of left heart catheterization (02/27/21) Hx of craniotomy S/P arteriovenous (AV) fistula creation Status post colon resection Status post insertion of dialysis catheter (07/2018) Social History household members: spouse housing: other details: mobile home current occupational status: disabled pets and animals: Yes pets and animals: dog(s) Smoking Status: Current every day smoker tobacco type: cigarettes Tobacco: How many years used: 40 second hand exposure: No alcohol intake: never substance use type: does not use ROS ROS Narrative GENERAL: Fatigue HEENT: denies headache, sinus congestion, or drainage, dysphagia RESPIRATORY: dyspnea on exertion CARDIAC: denies chest pain, palpitations, orthopnea, PND GASTROINTESTINAL: Melena GENITOURINARY: denies dysuria, urgency, frequency, heamaturia EXTREMITY: denies swelling MUSCULOSKELETAL: denies current joint pain or tenderness NEUROLOGIC: denies focal numbness, weakness, tingling HEMATOLOGIC: denies easy bruising and/or hemorrhage INTEGUMENT: denies rashes PSYCHIATRIC: denies suicidal or homicidal ideation Vital Signs Vital Signs Vital Signs: 04/23/23 07:06 04/23/23 07:32 Temperature 97.6 F L Temperature Source Temporal Pulse Rate 102 H Respiratory Rate 20 H Respiratory Pattern Tachypnea Blood Pressure 106/56 L Blood Pressure Mean 72 Pulse Ox 100 Oxygen Delivery Method Room Air Weight Weight: 82.826 kg Body Mass Index (BMI) 25.4 Physical Exam Narrative GENERAL: cooperative HEENT: Atraumatic; normocephalic EYES; Anicteric, pallor of the conjunctiva NECK; supple, normal thyroid, RESPIRATORY: Diminished to auscultation CARDIOVASCULAR: Regular S1 S2, GI: soft, normoactive bowel sounds, : No Renal angle tenderness; EXTREMITIES: No edema, no clubbing, MUSCULOSKELETAL: no muscle wasting NEURO: Awake; no lateralizing signs. SKIN: No Rash PSYCH; Flat affect Results Lab / Micro Data 04/23/23 07:59 04/23/23 07:59 Labs: Laboratory Results - last 24 hr 04/23/23 07:59: WBC 8.4, RBC 1.75 L, Hgb 5.2 L*, Hct 18.2 L, MCV 104.0 H, MCH 29.7, MCHC 28.6 L, RDW Std Deviation 66.2 H, RDW Coeff of Joana 18.3 H, Plt Count 239, MPV 12.3 H, Immature Gran % (Auto) 0.500, Neut % (Auto) 82.1 H, Lymph % (Auto) 10.4 L, Hunt % (Auto) 5.7, Eos % (Auto) 0.8, Baso % (Auto) 0.5, Absolute Neuts (auto) 6.9, Absolute Lymphs (auto) 0.87, Nucleated RBC % 0, Differential Comment SCANNED, Diff Path Review May foll, Anisocytosis 2+, PT 14.9, INR 1.2, APTT 36.8 H, Sodium 136, Potassium 3.9, Chloride 101, Carbon Dioxide 26.0, Anion Gap 9, BUN 54 H, Creatinine 7.24 H, Estim Creat Clear Calc 10.40, Est GFR (MDRD) Af Amer 10 L, Est GFR (MDRD) Non-Af 8 L, BUN/Creatinine Ratio 7.5 L, Glucose 225 H, Calcium 8.0 L, Total Bilirubin 0.20, AST 5 L, ALT 14 L, Alkaline Phosphatase 122 H, Total Protein 6.1 L, Albumin 2.8 L, Globulin 3.3, Albumin/Globulin Ratio 0.8 L, Crossmatch See Detail Micro: Microbiology 04/23/23 08:00 Stool Stool Occult Blood (ИВАН) - Final Occult Blood Positive Assessment & Plan Assessment/Plan (1) Acute upper GI bleed: (2) Acute anemia: PLAN: Plan Patient is a 67-year-old gentleman with multiple comorbidities presenting with fatigue and melena found to have hemoglobin of 5.2 1. Acute GI bleed ? Suspected to be upper GI bleed. Patient admitted to monitored bed started on Protonix drip consult placed to GI for possible endoscopic evaluation. Patient is on dual antiplatelet therapy for his underlying coronary artery disease currently placed on hold 2. Anemia ? Secondary to acute blood loss anemia from above with patient being symptomatic and with significant anemia with hemoglobin of 5.2 and order was given for patient to be transfused with 2 unit PRBC with dialysis. Subsequently ordered posttransfusion H&H 3. End-stage renal disease ? Patient is on dialysis on Wednesdays and Fridays consult placed the patient phone engineer for dialysis orders 4. Diabetes mellitus type II -patient's oral hypoglycemics held. Placed on long acting insulin, Accu-Cheks a.c. and at bedtime and covered with sliding scale insulin 5. History of colon cancer ? Status post subtotal colectomy currently remains in remission 6. Stage 3 severe COPD by GOLD classification ? Currently not in exacerbation aerosol treatment as needed 7. Coronary artery disease ? With history of multivessel angioplasty patient remains on guideline directed medical therapy 8. Obstructive sleep apnea ? On CPAP at night 9. Chronic congestive heart failure with preserved ejection fraction ? Echo from 04/29/2022 demonstrated EF of 50%. Patient remains euvolemic 10. Hypothyroidism - Patient is on levothyroxine home dose continued 11. Dyslipidemia -Patient is on statin therapy, continued at home dose 12. GERD ? On PPI 13. Tobacco dependence - Counseled on cessation, offered nicotine patch for tobacco cravings 14. Chronic hypoxic respiratory failure ? Patient is on baseline home oxygen 15. DVT prophylaxis ? SCDs only given patient presentation Time spent in the patient's overall evaluation,decision-making process, review of diagnostic data, adjustment of management, discussion with other providers, nursing nursing and ancillary staff involved in patient's care documentation, 75 Minutes Advance planning; did discuss with the patient regarding advanced directives as well as CODE STATUS. Did explain the various scenarios involved ( FULL CODE, DNR CCA, DNR CCA with no intubation, and DNR CC and what each meant) patient elected remain full code with CPR and intubation if needed. Order was placed. Time spent on discussion 18 minutes. Charges/Coding Visit Charges Inpatient E&M: 11593 Init Hosp L3 Procedures Hospitalists Procedures: 36879 Advncd Care Plan 30 Min
[2023-04-23] MEDS: Pantoprazole Sodium 80 MG in 0.9% Normal Saline (100mL Bag) 80 ML 10 MG CONT INF ×2 (09:26→18:12)
[2023-04-23] MEDS: Pantoprazole Sodium 80 MG in 0.9% Normal Saline (50mL Bag) 15 ML 420 MG IV BOLUS (09:30)
--- OUTSIDE RECORDS SUMMARY | 2023-04-23 10:21 | XMS RPT_ITS | CCD ---
Author Name Unknown Address [address] [facility] [facility] [address] [place] [address] Organization [facility] Care Team Providers Care Tax Senior Associate Name Role Phone INES STAUFFER DO Primary Care Physician [phone] INES STAUFFER DO Attending Unavailable INES STAUFFER [...] wheezing, # 360 mL, 5 Refill(s), Pharmacy: [facility], 180.5, cm, 01/17/22 15:18:00 EDT, Height, [...] # 3 EA, 1 Refill(s), [facility] [facility].5, cm, 08/24/21 13:58:00 EDT, [...] # 18 mL, 1 Refill(s), [facility] 179.5, cm, 08/24/21 13:58:00 EDT, [...] heart disease (4 sources) Coronary arteriosclerosis in point lay ira artery 12-30-2018 Chronic Coronary atherosclerosis and other [...] Non-Invasive [address] MARIANA BATRES MD [address] [place] [address] 03-31-2022 11:04-0500 Heart rate 86 /min DR MARIANA BATRES MD [address] [place] [address] 03-31-2022 11:04-0500 Reason For Taking VItal Signs DR MARIANA BATRES MD [address] [place] [address] 03-31-2022 11:04-0500 Respiratory rate 18 /min DR MARIANA BATRES MD [address] [place] [address] 03-31-2022 11:04-0500 Systolic Blood Pressure Non-Invasive [address] MARIANA BATRES MD [address] [place] [address] 03-31-2022 10:05-0500 Body temperature 98.6 [degF] DR MARIANA BATRES MD [address] [place] [address] 03-31-2022 10:05-0500 Diastolic Blood Pressure Non-Invasive [address] MARIANA BATRES MD [address] [place] [address] 03-31-2022 10:05-0500 Heart rate 78 /min DR MARIANA BATRES MD [address] [place] [address] 03-31-2022 10:05-0500 Respiratory rate 18 /min DR MARIANA BATRES MD [address] [place] [address] 03-31-2022 10:05-0500 Systolic Blood Pressure Non-Invasive [address] MARIANA BATRES MD [address] [place] [address] 03-31-2022 09:06-0500 Heart rate 88 /min DR MARIANA BATRES MD [address] [place] [address] 03-31-2022 09:06-0500 Reason For Taking VItal Signs DR MARIANA BATRES MD [address] [place] [address] 03-31-2022 09:06-0500 Respiratory rate 18 /min DR MARIANA BATRES MD [address] 03-31-2022 07:11-0500 Diastolic Blood Pressure Non-Invasive [address] MARIANA BATRES MD [address] 03-31-2022 07:11-0500 Heart rate 76 /min DR MARIANA BATRES MD [address] 03-31-2022 07:11-0500 Systolic Blood Pressure Non-Invasive [address] MARIANA BATRES MD [address] [place] [address] 03-31-2022 06:42-0500 Body temperature 98.6 [degF] DR MARIANA BATRES MD [address] 03-31-2022 06:42-0500 Heart rate 77 /min DR MARIANA BATRES MD [address] 03-31-2022 02:10-0500 Body temperature 96.8 [degF] DR MARIANA BATRES MD [address] [place] [address] 03-31-2022 02:10-0500 Reason For Taking VItal Signs DR MARIANA BATRES MD [address] 03-30-2022 21:45-0500 Heart rate 85 /min DR MARIANA BATRES MD [address] [place] [address] 03-30-2022 09:05-05[address] Pressure Cuff Size DR MARIANA BATRES MD [address] 03-30-2022 09:05-[address] MARIANA BATRES MD [address] [place] [address] 03-30-2022 09:05-[address] MARIANA BATRES MD [address] [place] [address] 03-30-2022 09:05-0500 Heart rate 93 /min DR MARIANA BATRES MD [facility] 03-30-2022 03:44-05[address] Blood Pressure Cuff Size DR MARIANA BATRES MD [facility] 03-30-2022 03:44-[address] MARIANA BATRES MD [address] [place] [address] 03-30-2022 03:44-[address] MARIANA BATRES MD [address] [place] [address] 03-30-2022 03:44-0500 Mean blood pressure 73 mm[Hg] DR MARIANA BATRES MD [address] [place] [address] 03-30-2022 00:34-0500 Body height [address] MARIANA BATRES MD [address] [place] [address] 03-30-2022 00:34-0500 Body weight 86.[address] MARIANA BATRES MD [address] [place] [address] 03-30-2022 00:34-0500 Body weight 73.82 kg/m2 DR MARIANA BATRES MD [address] [place] [address] 03-30-2022 00:07-0500 Mean blood pressure 75 mm[Hg] DR MARIANA BATRES MD [facility] 03-29-2022 23:11-0500 Diastolic Blood Pressure Non-Invasive [address] JAISON SAVAGE MD [facility] 03-29-2022 23:11-0500 Heart rate 82 /min DR JAISON SAVAGE MD [facility] 03-29-2022 23:11-0500 Respiratory rate 20 /min DR JAISON SAVAGE MD [facility] 03-29-2022 23:11-0500 Systolic Blood Pressure Non-Invasive [address] JAISON SAVAGE MD [facility] 03-29-2022 19:50-0500 Diastolic Blood Pressure Non-Invasive [address] JAISON SAVAGE MD [facility] 03-29-2022 19:50-0500 Heart rate 92 /min DR JAISON SAVAGE MD [facility] 03-29-2022 19:50-0500 Respiratory rate 20 /min DR JAISON SAVAGE MD [facility] 03-29-2022 19:50-0500 Systolic Blood Pressure Non-Invasive [address] JAISON SAVAGE MD [facility] 03-29-2022 18:34-0500 Body temperature 99.32 [degF] DR JAISON SAVAGE MD [facility] 03-29-2022 17:51-0500 Diastolic Blood Pressure Non-Invasive [address] JAISON SAVAGE MD [facility] 03-29-2022 17:51-0500 Heart rate 108 /min DR JAISON SAVAGE MD [facility] 03-29-2022 17:51-0500 Respiratory rate 20 /min DR JAISON SAVAGE MD [facility] 03-29-2022 17:51-0500 Systolic Blood Pressure Non-Invasive [address] JAISON SAVAGE MD [facility] 03-29-2022 14:52-0500 Heart rate 115 /min DR JAISON SAVAGE MD [facility] 03-29-2022 14:50-0500 SaO2% (BldA) [Mass fraction] 87 % DR JAISON SAVAGE MD [facility] 03-29-2022 14:48-0500 Heart rate 110 /min DR JAISON SAVAGE MD [facility] 03-29-2022 14:32-0500 Body temperature 98.06 [degF] DR JAISON SAVAGE MD [facility] 03-29-2022 14:32-0500 Body weight [address] JAISON SAVAGE MD [facility] 03-29-2022 14:32-0500 Heart rate 114 /min DR JAISON SAVAGE MD [facility] Encounters Encounter Date Encounter Type Care Provider Facility Start: 03-30-2022 End: 03-31-2022 Evaluation and management of inpatient MARIANA BATRES MD Facility:A Start: 03-30-2022 End: 03-31-2022 Evaluation and management of inpatient DR MARIANA BATRES MD [facility] Start: 03-29-2022 End: 03-30-2022 Emergency department patient visit JAISON SAVAGE MD Facility:B Start: 03-29-2022 End: 03-29-2022 Emergency department patient visit DR JAISON SAVAGE MD [facility] Start: 03-12-2022 End: 03-13-2022 ambulatory INES STAUFFER DO Facility:B Start: 03-12-2022 End: 03-12-2022 Patient encounter procedure INES STAUFFER DO [facility] Start: 02-21-2022 End: 02-22-2022 ambulatory INES STAUFFER DO Facility:B Start: 10-05-2021 ambulatory INES STAUFFER DO Facili ty:B Start: 10-05-2021 End: 10-09-2021 Outreach Lab INES STAUFFER DO [facility] Procedures Date Procedure Procedure Detail Performing Clinician Start: 10-17-2017 Intestinal structure (body structure) INES HERNANDEZMICHEAL DO Immunizations Immunization Date Immunization Notes Care Provider Fa cili 01-17-2022 pneumococcal polysaccharide vaccine, 23 valent; Translations: [Pneumovax 23] INES DAVIDMICHAEL DO [facility] 10-31-2020 hepatitis B vaccine, adult dosage; Translations: [Engerix-B] INES STAUFFER DO [facility] 10-31-2020 pneumococcal conjuga te vaccine, 13 valent; Translations: [Prevnar 13] INES DAVIDMICHAEL DO [facility] 07-16-2011 pneumococcal conjuga te vaccine, 13 valent INES STAUFFER DO [facility] Payers Date Payer Category Payer Unknown [id number] 2022 Private Health Insurance [facility] [id number] 2021 Medicare [id number] 1955 Unknown [id number] [id number] 1955 Unknown [id number] [id number] [id number] 1954 Unknown [id number] 2.16.8 [id number] 1954 Unknown [id number] 2.16.8 [id number] 1954 Unknown [id number] 2.16.8 [id number] Social History Date Type Detail Facility Start: 02-20-2021 Tobacco smoking status Ex-smoker (fi nding) [facility] Sex Assigned At Male [facility] Start: 01-17-2022 Tobacco smoking status Light t obacco smoker (finding) [facility] Medical Equipment Procedure Code Equipment Code Equipment [...] Z79.4, # 150 EA, 11 Refill(s), Pharmacy: [facility], 180.5, cm, 01/17/22 15:18:00 EDT, Height, 92, kg, 01/17/22 15:18:00 EDT, Dosing Weight Start: 03-13-2022 See Instructions , qs 1 month supply, testing QID. dx: E11.9 and Z79.4, # 1 EA, 11 Refill(s), Pharmacy: [facility], 180.5, cm, 01/17/22 15:18:00 EDT, Height, 92 Start: 03-14-2022 See Instructions , check BGT 4x/day, dispense #1250 test strips, 11 refills; on insulin; dx E11.9 and Z79.4, # 150 EA, 11 Refill(s), Pharmacy: [facility], 180.5, cm, 01/17/22 15:18:00 EDT, Height, 92, kg, 01/17/22 15:18:00 EDT, Dosing Weight Start: 03-13-2022 See Instructions , qs 1 month supply, testing QID. dx: E11.9 and Z79.4, # 1 EA, 11 Refill(s), Pharmacy: [facility], 180.5, cm, 01/17/22 15:18:00 EDT, Height, 92 Start: 03-14-2022 Functional Status Date Assessment Result Facility 03-31-2022 Functional Status Room check performed [facility] 03-31-2022 Functional Status [facility] 03-30-2022 Functional Status [facility] 03-30-2022 Functional Status [facility] 03-30-2022 Functional Status Valid [place] [facility] 03-29-2022 Functional Status ID band on, Call device within reach, Bed in low position, Wheels locked, Upper/Half-Length side-rails up [facility] 03-29-2022 Functional Status [facility] Mental Status Date Assessment Result Facility 03-31-2022 Mental Status Oriented x 4 [facility] 03-30-2022 Mental Status [facility] 03-30-2022 Mental Status [facility] 03-29-2022 Mental Status Oriented x 4 [facility] [place] 03-29-2022 Mental Status [facility] [place] Clinical Notes 03-12-2022 to 04-02-2022 Note Date [...] only. Refer to previous culture for susceptibility. [id number] collected 03-29-22 Staphylococcus coagulase negative Isolated from [...] Locations *1: This test was performed at: [facility], [address] [place] [address], [id number] , [facility] ([place]) 04-02-2022 Note . MICRO - Microbiology PROCEDURE: [...] Locations *1: This test was performed at: [facility], [address] [place] [address], [id number] , [facility] ([place]) 03-31-2022 Discharge summary Date of Service 03/31/22 Discharge Diagnosis Positive blood culture, Staphylococcus bacteremia versus contamination Bacterial pneumonia End-stage renal disease on hemodialysis Friday PVD anxiety, depression BPH DM type II, on insulin HTN hypothyroidism HLD Chronic pain COPD Chronic respiratory failure, sometimes requiring home O2, Hospital Course 66-year-old white male who was transferred from [facility] for pneumonia. He has multiple underlying comorbidities, he had a productive cough, with shortness of breath on exertion for several days, he has a chronic respiratory failure on home O2 as needed, he had end-stage renal disease on hemodialysis Friday and Friday. He was admitted last night, CT of the chest from [facility] showed widespread tree-in-bud opacities and multifocal nodular [...] DUKES DO, Routine, ESRD on HD f/w [facility] Consult to Tobacco Marble [employer]ter - Ordered -- 03/30/22 1:36:00 EST, Once, [...] YEE MOTLEY MD on 03/31/2022 04:14 PM [facility] 03-31-2022 Nurse Progress note Patient wishes to leave against medical advice. Dr Motley spoke with the patient and his sister. He understands risks and still wishes to leave. Patient left via w/c with his sister Leslye. Digitally Signed by Marily Peralta RN on 03/31/2022 02:39 PM [facility] 03-31-2022 Nephrology Progress note Subjective Patient [...] NIK WHITAKER MD on 03/31/2022 11:32 AM [facility] 03-30-2022 Note . MICRO - Microbiology [...] Locations *1: This test was performed at: [address], [address] [place] [address] ([place]) 03-30-2022 Note . MICRO - Microbiology PROCEDURE: [...] Locations *1: This test was performed at: [address], [address] [place] [address] ([place]) Acute hypoxic respiratory fa ilure. Patient with [...] no relief. Received initial treatment in the [facility] ED with somewhat improvement in symptoms. -Solu-Medrol 60 mg every 8 hours -DuoNebs every 4 hours -As needed albuterol ESRD on HD. 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 We will consult nephrology here for dialysis. [...] Date:04/25/2022 03:00:00 PM Scheduled Provider:INES STAUFFER DO Location:[facility] Appointment Type: OV Diagnostic Tests Pending [...] Level 03/21/22 * Complete Metabolic Panel 01/17/22 [facility] 01-14-2023 Consult note Date of Service March 30, 2022 Reason for Consultation ESRD History of Present Illness 60-year-old gentleman who has a history of end-stage renal disease on dialysis Friday receives dialysis through left arm AV fistula. Follows with the [facility] unit. 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., 04/02/2019 Nutrition/Health Caffeine intake amount: 3 [...] NIK WHITAKER MD on 03/30/2022 12:33 PM [id number] Note Date of Service 03/30/2022 Chief Complaint Shortness of breath Subjective This is a 66-year-old male with a past medical history of lung cancer status post lobectomy, Peripheral vascular disease, anxiety, depression, type 2 diabetes, hypertension, hypothyroid, hyperlipidemia, COPD, ESRD on dialysis Friday who presented to [facility] as a transfer from [facility] emergency department on 03/30/2022 with complaints [...] for flu and COVID-19. Was transferred to [facility] for further management. On my exam, [...] by INES DURAND on 03/30/2022 10:00 AM [id number] Respiratory therapy Hospital Progress note Respiratory Therapy [...] by RUBIN Weber on 03/30/2022 08:45 AM [id number] Note Chief Complaint Transition plan Transitional Action [...] RateH 22(MAR 30:18)20(MAR 30:)H 22(MAR 30 02:18) KKQ315(MAR 30 00:07)104(MAR 30 00:07)104(MAR 30:07) DBP61(MAR 30:07)61(MAR 30:07)61(MAR 30:) Problem List/ Past Medical History Anxiety BMI 28.0-28.9,adult BPH with obstruction/lower urinary tract symptoms Back pain CAD in point lay ira artery CHF with unknown LVEF CKD (chronic [...] Alcohol Details: Use: Never. 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 Nutrition/Health Details: Caffeine intake amount: 3 [...] by ROMÁN RINCON on 03/30/2022 12:23 PM [facility] [id number] Respiratory therapy Hospital Progress note Respiratory Therapy [...] by Mehran Mcintosh on 03/30/2022 02:15 AM [id number] History and physical note Date of Service 03/30/22 Chief Complaint Cough. History of Present Illness 60-year-old male with history of PVD, anxiety, depression, BPH, DM on insulin, HTN, hypothyroidism,HLD, chronic pain, COPD sometimes requiring home O2, ESRD on HD presents to the hospital as a transfer from [facility] for SOB. History is obtained by colleague [...] 2.8 mmol/L High (03/29/22 17:47:00) N-Terminal proBNP: 69503 pg/mL High (03/29/22 15:13:00) Troponin I High Sensitivity: 64 ng/L (03/29/22 15:13:00) COVID-19 Result: Negative. (03/29/22 15:13:00) COVID-19 Int: COVID-19 Int (03/29/22 15:13:00) Flu A PCR (AO): Negative.1 (03/29/22 15:13:00) Flu B PCR (AO): Negative.1 (03/29/22 15:13:00) RSV PCR (AO): Negative.1 (03/29/22 15:13:00) Lab Performed By: Pat Sanchez (03/29/22 14:37:00) Lab Performing Location: [address] (03/29/22 14:37:00) Influenza A (AMB POC): [...] no relief. Received initial treatment in the [facility] ED with somewhat improvement in symptoms. -Solu-Medrol 60 mg every 8 hours -DuoNebs every 4 hours -As needed albuterol ESRD on HD. 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 We will consult nephrology here fordialysis. CHF. 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 A benefits representative lingula nodule measures 5 mm. A benefits representative right lower lobe nodule measures 7 [...] Sign Date: 03/29/2022 6:22:37 PM Ordering Provider: [facility]01-13-2023 Note ORIGINAL EXAMINATION: CTA OF THE [...] unrelated to the presumed infectious/inflammatory process. A benefits representative lingula nodule measures 5 mm. A benefits representative right lower lobe nodule measures 7 [...] Sign Date: 03/29/2022 6:22:37 PM Ordering Provider: [facility] [place]01-13-2023 Note ORIGINAL EXAMINATION: ONE XRAY VIEW OF [...] Sign Date: 03/29/2022 3:55:35 PM Ordering Provider: [facility]01-13-2023 Note ORIGINAL EXAMINATION: ONE XRAY VIEW [...] Sign Date: 03/29/2022 3:55:35 PM Ordering Provider: [facility] [place]01-13-2023 SARS-CoV-2 (COVID-19) RNA GUANACO+probe Ql (Nph)Negative *NA* (03/29/22 3:13 PM)AO Auto Urine [id number] Note ORIGINAL EXAMINATION: BONE DENSITOMETRY 03/12/2022 11:32 [...] Sign Date: 03/12/2022 1:00:01 PM Ordering Provider: [facility]12-27-2022 Note ORIGINAL EXAMINATION: BONE DENSITOMETRY 03/12/2022 11:32 [...] Date: 03/12/2022 1:00:01 PM [facility] Future Appointments Appointment Date:11/22/2021 03:30:00 PM Scheduled Provider:INES STAUFFER DO [facility] Type:PC OV Appointment Date:01/17/2022 03:30:00 PM Scheduled Provider:INES STAUFFER DO [facility] Type: Wellness Medicare Future Scheduled Tests Laboratory* Benzodiazepine Confirmation Urine 10/04/21 * Benzodiazepine Confirmation Urine 08/24/21 * Prostate Specific Antigen 07/12/21 * Thyroid Stimulating Hormone 07/12/21 * Complete Blood Count 07/12/21 * Lipid Profile 07/12/21 * Hepatitis C Antibody IgG 07/12/21 * Microalbumin Level Urine 07/12/21 * Renal Function Panel 05/10/21 * Complete Metabolic Panel 07/12/21 [facility] Evaluation + Plan note Future Appointments Appointment Date:03/21/2022 03:30:00 PM Scheduled Provider:INES STAUFFER DO Location:[facility] Appointment Type:PC OV Future Scheduled Tests Laboratory* Ferritin 01/17/22 * Prostate Specific Antigen 01/17/22 * Thyroid Stimulating Hormone 01/17/22 * Complete Blood Count 01/17/22 * Lipid Profile 01/17/22 * Hepatitis C Antibody IgG 01/17/22 * Microalbumin Level Urine 01/17/22 * Renal Function Panel 01/17/22 * Complete Metabolic Panel 01/17/22 [facility] Evaluation + Plan note Future Appointments Appointment Date:04/25/2022 03:00:00 PM Scheduled Provider:INES STAUFFER DO Location:[facility] Appointment Type:PC OV Future Scheduled Tests [...] Level 03/21/22 * Complete Metabolic Panel 01/17/22 [facility] Hospital course Narrative No data available for this section [facility] Hospital Discharge instructions No data available for this section [facility] Note* MD JAISON SAVAGE MD: SIGN, VERIFY Event Display: EKG [ED AO] - CV Authored Date: [facility] Progress note No data available for this section [facility] Summary Purpose Family History No Family History Records Found Advance Directives No Advanced Directives Records Found Additional Source Comments Care Team (unrecognized sect ion and content) Care Team Personnel Name: INES STAUFFER DO Position: P4 Physician - Primary Care Med Service: Active Provider Member Role: Primary Care Physician Address: Address: [address] [place] [address] Care Team Related Persons Name: ELENI FLORES Care [place] Personnel Name: INES STAUFFER DO Position: P4 Physician - Primary Care Member Role: Primary Care Physician Address: Address: [address] [place] [address] Care Team Related Persons Name: ELENI FLORES Care Team Personnel Name: INSE STAUFFER DO Position: P4 Physician - Primary Care Member Role: Primary Care Physician Address: Address: [address] [place] [address] Name: DEVEN Urban Position: AO RN Member Role: ED RN Name: MD JAISON SAVAGE MD Position: ED Physician Member Role: ED Physician Address: Address: [facility] [address] [place] [id number] Name: More Morales APRN-COAL SCREENER Position: AO RN Member Role: RN Chart Reviewer Care Team Related Persons Name: ELENI FLORES Care Team Personnel Name: INES STAUFFER DO Position: P4 Physician - Primary Care Member Role: Primary Care Physician Address: Address: [address] [place] [address] Care Team Related Persons Name: SANDRA, ELENI [...] BE BASED ON THE PRIMARY CLINICAL RECORDS. [facility]. provides no warranty or guarantee of the accuracy or completeness of information in this document.
[2023-04-23 11:51] LABS: Bedside Glucose 142 mg/dL (74-106)
--- NOTE | 2023-04-23 11:58 | CASEMGMT ---
SW met with patient as he stated to nursing that he is having trouble with transportation. Patient said he used to have his own van, but the transmission went out. The cost to repair the van would cost more than what the van is worth. Patient said his neighbor is in [place] for awhile and he is letting him use his car. María PINEDA
--- NOTE | 2023-04-23 12:17 | CON.PCM.RE_ITS ---
Assessment & Plan Assessment/Plan (1) ESRD (end stage renal disease) on dialysis: PLAN: dialysis MWF. Seen on dialysis. Hold heparin. (2) Acute anemia: PLAN: hgb 5.2 due to GI loss. transfuse 2u prbc on dialysis GI consulted. On plavix at home (3) History of coronary artery disease: (4) History of colon cancer: (5) Hypertension: QUALIFIERS: Hypertension type: primary hypertension Qualified Code(s): I10 - Essential (primary) hypertension PLAN: recent low BP due to severe anemai HPI Consult Data Date of Consult: 04/23/23 HPI Narrative Reason for Consultation: ESRD HD MWF HPI Narrative: BARI KELLY, is a 67 M with ESRD due to hypertensive nephrosclerosis on HD MWF at [facility] dialysis unit sent to ED for low hgb 5.5g done at chronic dialysis center 2 days ago. He complains of black loose stools since weekend. Denied nausea, vomiting, abdominal pain. He had bright red blood last month thought due to hemorrhoids. He is on plavix with hx CAD. He complains of fatigue, weakness, near syncope. BP low on dialysis past week. He denies chest pain, syncope, SOB. In ED hemoglobin was 5.2. Gi consulted. [facility] Medical History (Updated 04/23/23 @ 12:[address] Daysi Magana, ) Acute HFrEF (heart failure with reduced ejection fraction) Acute respiratory failure with hypoxemia Anemia of chronic renal failure Anxiety Atherosclerosis of coronary artery of [place] heart without angina pectoris Back pain C. difficile colitis Cancer Cholelithiasis Chronic renal failure, stage 4 (severe) Colon cancer COPD (chronic obstructive pulmonary disease) CPAP (continuous positive airway pressure) dependence Depression DM type 2 causing CKD stage 4 Elevated troponin Former smoker Gastric reflux Gout Heme + stool Hemorrhoids High cholesterol History of GI bleed History of IBS Hyperkalemia, diminished renal excretion Hyperlipidemia Hypertension Hyponatremia Hypotension, unspecified Increased PTH level Infectious encephalopathy Iron deficiency anemia Ischemic cardiomyopathy Low vitamin D level Lower GI bleed Metabolic acidosis Myocardial infarct Nocturnal hypoxia Non-STEMI (non-ST elevated myocardial infarction) Noncompliance with CPAP treatment NSAID long-term use NSTEMI (non-ST elevated myocardial infarction) (07/2018) NSVT (nonsustained ventricular tachycardia) On home oxygen therapy LADARIUS (obstructive sleep apnea) Paroxysmal atrial fibrillation Peripheral vascular disease Pseudomembranous enterocolitis Radiculopathy affecting upper extremity Septic shock Severe sepsis Shortness of breath on exertion Skin tear Sleep apnea Stage 3 severe COPD by GOLD classification Streptococcal pneumonia Uremia of renal origin Urinary retention due to benign prostatic hyperplasia Wears dentures Home Medications oxycodone 5 mg tablet 5 mg PO BID PRN PRN Pain 05/14/17 [History Last Taken 04/22/23] finasteride 5 mg tablet 5 mg PO DAILY prostate 09/15/17 [History Last Taken 04/28/22] isosorbide mononitrate 30 mg tablet,extended release 24 hr 15 mg PO DAILY heart 09/15/17 [History Last Taken 04/28/22] diazepam 5 mg tablet 5 - 10 mg PO BID PRN anxiety 05/12/18 [History Last Taken 04/29/22] escitalopram oxalate 20 mg tablet (Lexapro) 20 mg PO DAILY depression 09/30/19 [History Last Taken 04/28/22] ipratropium 0.5 mg-albuterol 3 mg (2.5 mg base)/3 mL nebulization soln 3 ml inhalation Q4H PRN shortness of breath or wheezing 09/30/19 [History Last Taken 04/28/22] levothyroxine 88 mcg tablet 88 mcg PO DAILY thyroid 12/07/19 [History Last Taken 04/28/22] albuterol sulfate 90 mcg/actuation aerosol inhaler 2 puff inhalation 4X/DAY breathing 04/28/21 [History Last Taken 04/29/22] cholecalciferol (vitamin D3) 50 mcg (2,000 unit) capsule (Vitamin D3) 2,000 unit PO DAILY vitamin 04/28/21 [History Last Taken 04/28/22] loperamide 2 mg capsule 2 mg PO Q4H PRN PRN loose stool 04/28/21 [History Last Taken 04/23/23] rosuvastatin 10 mg tablet 10 mg PO DAILY cholesterol 04/28/21 [History Last Taken 04/28/22] clopidogrel 75 mg tablet 75 mg PO DAILY HEART 04/01/22 [History Last Taken 04/28/22] insulin degludec 100 unit/mL (3 mL) subcutaneous pen (Tresiba FlexTouch U-100 insulin) 20 - 25 unit subcut BID diabetes 04/01/22 [History Last Taken 04/29/22] insulin lispro 100 unit/mL subcutaneous pen See Rx Instructions .Route .COMPLEX DM 04/01/22 [History Last Taken 04/29/22] ferrous sulfate 325 mg (65 mg iron) tablet,delayed release 325 mg PO QODAY supplement #30 tabs 05/03/22 [Rx Last Taken 04/28/22] pantoprazole 40 mg tablet,delayed release 40 mg PO BID GI #60 tabs 05/03/22 [Rx Last Taken Unknown] sodium chloride 0.65 % nasal spray aerosol (Deep Sea Nasal) 2 spray NASAL Q4H PRN PRN Nasal Dryness #0 mL 05/03/22 [Rx Last Taken Unknown] guaifenesin 1,200 mg tablet, extended release 12 hr (Mucus Relief ER) 1,200 mg PO BID COUGH #60 tabs 09/10/22 [Rx Last Taken Unknown] nitroglycerin 0.4 mg sublingual tablet 0.4 mg sublingual Q5M PRN Chest Pain #25 tabs 11/21/22 [Rx Last Taken Unknown] fluticasone fur. 200 mcg-umeclid 62.5 mcg-vilant 25 mcg inhalat.powder (Trelegy Ellipta) 1 inh inhalation DAILY SHORTNESS OF BREATH #60 ea 04/07/23 [Rx Last Taken Unknown] Allergy/AdvReac Type Severity Reaction Status Date / Time No Known Allergies Allergy Verified 04/23/23 07:06 Family History Father Leukemia Mother COPD (chronic obstructive pulmonary disease) Surgical History H/O colectomy H/O pneumonectomy History of coronary artery stent placement (02/28/21) History of esophagogastroduodenoscopy (EGD) History of left heart catheterization (02/27/21) Hx of craniotomy S/P arteriovenous (AV) fistula creation Status post colon resection Status post insertion of dialysis catheter (07/2018) Social History household members: spouse housing: other details: mobile home current occupational status: disabled pets and animals: Yes pets and animals: dog(s) Smoking Status: Current every day smoker tobacco type: cigarettes Tobacco: How many years used: 40 second hand exposure: No alcohol intake: never substance use type: does not use ROS Constitutional Constitutional: Reports weakness; Denies chills or fever(s) Cardiovascular Cardiovascular: Denies chest pain Respiratory/Chest Respiratory/Chest: Denies dyspnea on exertion Gastrointestinal Gastrointestinal: Reports diarrhea and melena; Denies abdominal pain, anorexia, hematemesis, hematochezia, nausea or vomiting Musculoskeletal Musculoskeletal: Denies joint swelling Integumentary Integumentary: Denies rash Neurologic Neurologic: Denies abnormal gait Psychiatric Psychiatric: Reports anxiety; Denies confusion Endocrine Endocrinology: Reports fatigue Hematologic/Lymphatic Hematologic/Lymphatic: Reports anemia Physical Exam Const alert and oriented x3 General Appearance: well developed HEENT normocephalic Eyes PERRL Resp clear to auscultation bilaterally Cardio regular rate GI non-tender and non-distended Auscultation: normoactive bowel sounds Palpation: soft Back/Spine normal ROM Extremity General Extremity: AV fistula Neuro CN's II-XII intact bilaterally and moves all extremities Psych cooperative Lab / Micro Data 04/23/23 07:59 04/23/23 07:59 Labs: Laboratory Results - last 24 hr 04/23/23 07:59: WBC 8.4, RBC 1.75 L, Hgb 5.2 L*, Hct 18.2 L, MCV 104.0 H, MCH 29.7, MCHC 28.6 L, RDW Std Deviation 66.2 H, RDW Coeff of Joana 18.3 H, Plt Count 239, MPV 12.3 H, Immature Gran % (Auto) 0.500, Neut % (Auto) 82.1 H, Lymph % (Auto) 10.4 L, Roberts % (Auto) 5.7, Eos % (Auto) 0.8, Baso % (Auto) 0.5, Absolute Neuts (auto) 6.9, Absolute Lymphs (auto) 0.87, Nucleated RBC % 0, Differential Comment SCANNED, Diff Path Review May foll, Anisocytosis 2+, PT 14.9, INR 1.2, APTT 36.8 H, Sodium 136, Potassium 3.9, Chloride 101, Carbon Dioxide 26.0, Anion Gap 9, BUN 54 H, Creatinine 7.24 H, Estim Creat Clear Calc 10.40, Est GFR (MDRD) Af Amer 10 L, Est GFR (MDRD) Non-Af 8 L, BUN/Creatinine Ratio 7.5 L, Glucose 225 H, Calcium 8.0 L, Total Bilirubin 0.20, AST 5 L, ALT 14 L, Alkaline Phosphatase 122 H, Total Protein 6.1 L, Albumin 2.8 L, Globulin 3.3, Albumin/Globulin Ratio 0.8 L, Blood Type A POSITIVE, Antibody Screen NEGATIVE, Crossmatch See Detail 04/23/23 11:32: POC Glucose 142 H Micro: Microbiology 04/23/23 08:00 Stool Stool Occult Blood (ИВАН) - Final Occult Blood Positive
[2023-04-23] MEDS: 0.9% Normal Saline 1,000 ML IV.SOLN. 1000 ML OPERA.SITE (12:21)
[2023-04-23] MEDS: PureFlow B 3K Dialysis Soln 1 BAG 6 BAG PF (12:21)
[2023-04-23 15:09] LABS: Hematocrit 24.1 % (40-54); Hemoglobin 7.4 g/dL (13.0-16.5)
[2023-04-23] MEDS: Sodium Ferric Gluconat/Sucrose 125 MG in 0.9% Normal Saline (100mL Bag) 100 ML 110 MG IV (18:08)
[2023-04-23 18:54] LABS: Bedside Glucose 119 mg/dL (74-106)
[2023-04-23] MEDS: Insulin Lispro 100 UNIT/ML INSULN.PEN SC (21:08)
[2023-04-23 21:17] LABS: Hematocrit 22.8 % (40-54); Hemoglobin 6.9 g/dL (13.0-16.5)
[2023-04-23 21:22] LABS: Bedside Glucose 157 mg/dL (74-106)
--- NOTE | 2023-04-23 22:43 | PCM.HOSP.N ---
Hospitalist Note Patient hemoglobin is 6.9. Patient heart rate and blood pressure are at baseline. Not having active symptoms. Patient came with severe anemia 5.2 and was transfused couple units yesterday 7.4 dropped to 6.9. Plan for CBC tomorrow AM. Hemoglobin is borderline I do not see any acute urgency to transfuse and also patient is a risk of fluid overload with ESRD on hemodialysis. Patient was dialyzed today and 2600 mill fluid was removed. BP 97/69.
--- NOTE | 2023-04-23 23:00 | CON.PCM.GI_ITS ---
HPI Consult Data Date of Consult: 04/23/23 HPI Narrative Reason for Consultation: GI bleed HPI Narrative: BARI KELLY, is a 67 M who presents with chief complaint of black stools for about a week. He has a history of COPD, obstructive sleep apnea and tobacco dependency. He has a [id number] smoking history. He always has soft stools almost diarrhea because he had a subtotal colectomy about 4 years ago for localized colon cancer. This required no radiation or chemotherapy and is considered cured. He states he feels fine and is not lightheaded or dizzy. But he had outpatient blood work and was called this morning to come to the emergency department due to low hemoglobins. He does not know what that level was or what his normal is. He did receive a transfusion once about 4 years ago after his colon surgery but no other time. No colonoscopy since his surgery. He is on Plavix. This patient also has had subtotal removal of the right lung. This was done 15 years ago. He is not sure exactly what the cause was but it required no chemo or radiation. He is not sure if it was even cancer. [facility] Medical History (Updated 04/23/23 @ 12:[address] Daysi Magana, ) Acute HFrEF (heart failure with reduced ejection fraction) Acute respiratory failure with hypoxemia Anemia of chronic renal failure Anxiety Atherosclerosis of coronary artery of [place] heart without angina pectoris Back pain C. difficile colitis Cancer Cholelithiasis Chronic renal failure, stage 4 (severe) Colon cancer COPD (chronic obstructive pulmonary disease) CPAP (continuous positive airway pressure) dependence Depression DM type 2 causing CKD stage 4 Elevated troponin Former smoker Gastric reflux Gout Heme + stool Hemorrhoids High cholesterol History of GI bleed History of IBS Hyperkalemia, diminished renal excretion Hyperlipidemia Hypertension Hyponatremia Hypotension, unspecified Increased PTH level Infectious encephalopathy Iron deficiency anemia Ischemic cardiomyopathy Low vitamin D level Lower GI bleed Metabolic acidosis Myocardial infarct Nocturnal hypoxia Non-STEMI (non-ST elevated myocardial infarction) Noncompliance with CPAP treatment NSAID long-term use NSTEMI (non-ST elevated myocardial infarction) (07/2018) NSVT (nonsustained ventricular tachycardia) On home oxygen therapy LADARIUS (obstructive sleep apnea) Paroxysmal atrial fibrillation Peripheral vascular disease Pseudomembranous enterocolitis Radiculopathy affecting upper extremity Septic shock Severe sepsis Shortness of breath on exertion Skin tear Sleep apnea Stage 3 severe COPD by GOLD classification Streptococcal pneumonia Uremia of renal origin Urinary retention due to benign prostatic hyperplasia Wears dentures Home Medications oxycodone 5 mg tablet 5 mg PO BID PRN PRN Pain 05/14/17 [History Last Taken 04/22/23] finasteride 5 mg tablet 5 mg PO DAILY prostate 09/15/17 [History Last Taken 04/28/22] isosorbide mononitrate 30 mg tablet,extended release 24 hr 15 mg PO DAILY heart 09/15/17 [History Last Taken 04/28/22] diazepam 5 mg tablet 5 - 10 mg PO BID PRN anxiety 05/12/18 [History Last Taken 04/29/22] escitalopram oxalate 20 mg tablet (Lexapro) 20 mg PO DAILY depression 09/30/19 [History Last Taken 04/28/22] ipratropium 0.5 mg-albuterol 3 mg (2.5 mg base)/3 mL nebulization soln 3 ml inhalation Q4H PRN shortness of breath or wheezing 09/30/19 [History Last Taken 04/28/22] levothyroxine 88 mcg tablet 88 mcg PO DAILY thyroid 12/07/19 [History Last Taken 04/28/22] albuterol sulfate 90 mcg/actuation aerosol inhaler 2 puff inhalation 4X/DAY breathing 04/28/21 [History Last Taken 04/29/22] cholecalciferol (vitamin D3) 50 mcg (2,000 unit) capsule (Vitamin D3) 2,000 unit PO DAILY vitamin 04/28/21 [History Last Taken 04/28/22] loperamide 2 mg capsule 2 mg PO Q4H PRN PRN loose stool 04/28/21 [History Last Taken 04/23/23] rosuvastatin 10 mg tablet 10 mg PO DAILY cholesterol 04/28/21 [History Last Taken 04/28/22] clopidogrel 75 mg tablet 75 mg PO DAILY HEART 04/01/22 [History Last Taken 04/28/22] insulin degludec 100 unit/mL (3 mL) subcutaneous pen (Tresiba FlexTouch U-100 insulin) 20 - 25 unit subcut BID diabetes 04/01/22 [History Last Taken 04/29/22] insulin lispro 100 unit/mL subcutaneous pen See Rx Instructions .Route .COMPLEX DM 04/01/22 [History Last Taken 04/29/22] ferrous sulfate 325 mg (65 mg iron) tablet,delayed release 325 mg PO QODAY supplement #30 tabs 05/03/22 [Rx Last Taken 04/28/22] pantoprazole 40 mg tablet,delayed release 40 mg PO BID GI #60 tabs 05/03/22 [Rx Last Taken Unknown] sodium chloride 0.65 % nasal spray aerosol (Deep Sea Nasal) 2 spray NASAL Q4H PRN PRN Nasal Dryness #0 mL 05/03/22 [Rx Last Taken Unknown] guaifenesin 1,200 mg tablet, extended release 12 hr (Mucus Relief ER) 1,200 mg PO BID COUGH #60 tabs 09/10/22 [Rx Last Taken Unknown] nitroglycerin 0.4 mg sublingual tablet 0.4 mg sublingual Q5M PRN Chest Pain #25 tabs 11/21/22 [Rx Last Taken Unknown] fluticasone fur. 200 mcg-umeclid 62.5 mcg-vilant 25 mcg inhalat.powder (Trelegy Ellipta) 1 inh inhalation DAILY SHORTNESS OF BREATH #60 ea 04/07/23 [Rx Last Taken Unknown] Allergy/AdvReac Type Severity Reaction Status Date / Time No Known Allergies Allergy Verified 04/23/23 07:06 Family History Father Leukemia Mother COPD (chronic obstructive pulmonary disease) Surgical History H/O colectomy H/O pneumonectomy History of coronary artery stent placement (02/28/21) History of esophagogastroduodenoscopy (EGD) History of left heart catheterization (02/27/21) Hx of craniotomy S/P arteriovenous (AV) fistula creation Status post colon resection Status post insertion of dialysis catheter (07/2018) Social History household members: spouse housing: other details: mobile home current occupational status: disabled pets and animals: Yes pets and animals: dog(s) Smoking Status: Current every day smoker tobacco type: cigarettes Tobacco: How many years used: 40 second hand exposure: No alcohol intake: never substance use type: does not use ROS Constitutional Constitutional: Reports weakness; Denies chills or fever(s) Cardiovascular Cardiovascular: Denies chest pain Respiratory/Chest Respiratory/Chest: Denies dyspnea on exertion Gastrointestinal Gastrointestinal: Reports diarrhea and melena; Denies abdominal pain, anorexia, hematemesis, hematochezia, nausea or vomiting Musculoskeletal Musculoskeletal: Denies joint swelling Integumentary Integumentary: Denies rash Neurologic Neurologic: Denies abnormal gait Psychiatric Psychiatric: Reports anxiety; Denies confusion Endocrine Endocrinology: Reports fatigue Hematologic/Lymphatic Hematologic/Lymphatic: Reports anemia Physical Exam Const alert and oriented x3 Resp clear to auscultation bilaterally Cardio regular rate GI non-tender and non-distended Auscultation: normoactive bowel sounds Palpation: soft Extremity no clubbing, cyanosis or edema Psych cooperative Lab / Micro Data 04/24/23 02:16 04/24/23 02:16 Labs: Laboratory Results - last 24 hr 04/23/23 07:59: Blood Type A POSITIVE, Antibody Screen NEGATIVE, Crossmatch See Detail 04/23/23 15:00: Hgb 7.4 L, Hct 24.1 L 04/23/23 18:01: POC Glucose 119 H 04/23/23 20:40: Hgb 6.9 L, Hct 22.8 L 04/23/23 21:04: POC Glucose 157 H 04/24/23 02:16: WBC 6.8, RBC 2.39 L, Hgb 6.9 L, Hct 23.2 L, MCV 97.1 H D, MCH 28.9, MCHC 29.7 L, RDW Std Deviation 64.5 H, RDW Coeff of Joana 18.6 H, Plt Count 207, MPV 11.4, Immature Gran % (Auto) 0.300, Neut % (Auto) 68.5, Lymph % (Auto) 21.5, [place] % (Auto) 7.5, Eos % (Auto) 1.9, Baso % (Auto) 0.3, Absolute Neuts (auto) 4.7, Absolute Lymphs (auto) 1.46, Nucleated RBC % 0.3, Sodium 136, Potassium 4.0, Chloride 103, Carbon Dioxide 28.0, Anion Gap 5, BUN 45 H, Creat inine 5.76 H, Estim Creat Clear Calc 13.07, Est GFR (MDRD) Af Amer 13 L, Est GFR (MDRD) Non-Af 11 L, BUN/Creatinine Ratio 7.8 L, Glucose 86, Calcium 8.3 L, Phosphorus 4.7, Magnesium 2.3 04/24/23 06:12: POC Glucose 90 Micro: Microbiology 04/23/23 08:00 Stool Stool Occult Blood (ИВАН) - Final Occult Blood Positive Assessment & Plan Assessment/Plan (1) Acute upper GI bleed: (2) Acute anemia: PLAN: Plan Patient is a 67-year-old gentleman with multiple comorbidities including COPD not on home oxygen, CAD status post PTCA with stents on aspirin and Plavix, colon cancer status post subtotal colectomy presenting with fatigue and melena found to have hemoglobin of 5.2 Differential diagnosis for an acute upper GI bleed includes angiodysplasia, DielaFoy lesion, Nevin-Vang tear since he does have a chronic cough, peptic ulcer disease. He should undergo an upper endoscopy to evaluate his upper GI tract. He was explained alternatives, risk, benefits including not withstanding bleeding, infection, sepsis, perforation, need for discharge and . He will have an ASA of 3. Charges/Coding Visit Charges Inpatient E&M: 89702 Init Hosp L3
[2023-04-24] VITALS (20 sets, daily range): BP systolic 77–108; BP diastolic 48–68; PULSE 73–84; RESP 16–20; TEMP 36.3–36.6; O2SAT 85–100; BMI 26.3
[2023-04-24 02:24] LABS: Absolute Lymphocyte Count 1.46 X10^3/uL (0.83-4.51); Absolute Neutrophil Count 4.7 X10^3/uL (2.0-7.7); Basophil# 0.02 X10^3/uL; Basophil% 0.3 % (0-1); Eosinophil# 0.13 X10^3/uL; Eosinophils% 1.9 % (0-5); Hematocrit 23.2 % (40-54); Hemoglobin 6.9 g/dL (13.0-16.5); Lymphocyte # 1.46 X10^3/ul (0.83-4.51); Lymphocyte % 21.5 % (19-41); Mean Corp Hgb Conc 29.7 g/dL (32-36); Mean Corpuscular Hgb 28.9 pg (27.0-32.0); Mean Corpuscular Volume 97.1 fL (80-94); Mean Platelet Vol. 11.4 fl (6.2-12.0); Monocyte# 0.51 X10^3/uL; Monocyte% 7.5 % (0-10); NRBC Flagged by Analyzer 0.3 % (0-5); Neutrophil # 4.65 X10^3/uL (2.7-7.7); Neutrophil % 68.5 % (47-70); Platelet Count 207 K/mm3 (150-450); RBC Distribution Width CV 18.6 % (11.6-14.6); RBC Distribution Width SD 64.5 fl (35.1-43.9); Red Blood Count 2.39 M/mm3 (4.6-6.2); White Blood Count 6.8 K/mm3 (4.4-11.0)
[2023-04-24] MEDS: Ipratropium/Albuterol Sulfate 3 ML AMPUL.NEB INHALATION ×2 (02:37→10:53)
[2023-04-24 02:43] LABS: Anion Gap 5 (5-15); BUN 45 mg/dL (7-18); BUN/Creat Ratio 7.8 RATIO (10-20); Calcium,Total 8.3 mg/dL (8.5-10.1); Chloride 103 mmol/L (98-107); Creatinine, Serum 5.76 mg/dL (0.70-1.30); EST Glomerular Filtration Rate 11 mL/min (>60); Est Glom Filt Rate - Afr Amer 13 mL/min (>60); Estimated Creatinine Clearance 13.07 ml/min; Glucose 86 mg/dL (74-106); Magnesium 2.3 mg/dL (1.6-2.6); Phosphorus 4.7 mg/dL (2.5-4.9); Sodium Level 136 mmol/L (136-145)
[2023-04-24] MEDS: Pantoprazole Sodium 80 MG in 0.9% Normal Saline (100mL Bag) 80 ML 10 MG CONT INF ×3 (03:49→23:28)
[2023-04-24 06:30] LABS: Bedside Glucose 90 mg/dL (74-106)
--- NOTE | 2023-04-24 08:00 | PN.HOSP_ITS ---
Reason for Visit Reason for Visit: Diagnoses Anemia, unspecified (04/23/23) Gastrointestinal hemorrhage, unspecified (04/23/23) Subjective Subjective Patient is scheduled to undergo EGD Objective Data Objective Data Vital Signs: Vital Signs Temp Pulse Resp BP Pulse Ox O2 Del Method O2 Flow Rate 97.9 F 79 20 H 103/64 98 Nasal Cannula 2 04/24/23 02:25 04/24/23 04:15 04/24/23 02:37 04/24/23 02:25 04/24/23 02:44 04/24/23 02:44 04/24/23 02:44 Oxygen Flow Rate (L/min) 2 Oxygen Delivery Method Nasal Cannula Weight: 85.7 kg Body Mass Index (BMI) 26.4 Intake & Output: Intake and Output for Last 24 Hours 04/22/23 04/23/23 04/24/23 23:59 23:59 23:59 Intake Total 1102.67 / 1102.67 96.17 / 96.17 Output Total 2650 / 2650 Balance -1547.33 / -1547.33 96.17 / 96.17 Lab / Micro Data 04/24/23 02:16 04/24/23 02:16 Labs: Laboratory Results - last 24 hr 04/23/23 07:59: WBC 8.4, RBC 1.75 L, Hgb 5.2 L*, Hct 18.2 L, MCV 104.0 H, MCH 29.7, MCHC 28.6 L, RDW Std Deviation 66.2 H, RDW Coeff of Joana 18.3 H, Plt Count 239, MPV 12.3 H, Immature Gran % (Auto) 0.500, Neut % (Auto) 82.1 H, Lymph % (Auto) 10.4 L, [place] % (Auto) 5.7, Eos % (Auto) 0.8, Baso % (Auto) 0.5, Absolute Neuts (auto) 6.9, Absolute Lymphs (auto) 0.87, Nucleated RBC % 0, Differential Comment SCANNED, Diff Path Review May foll, Anisocytosis 2+, PT 14.9, INR 1.2, APTT 36.8 H, Sodium 136, Potassium 3.9, Chloride 101, Carbon Dioxide 26.0, Anion Gap 9, BUN 54 H, Creatinine 7.24 H, Estim Creat Clear Calc 10.40, Est GFR (MDRD) Af Amer 10 L, Est GFR (MDRD) Non-Af 8 L, BUN/Creatinine Ratio 7.5 L, Glucose 225 H, Calcium 8.0 L, Total Bilirubin 0.20, AST 5 L, ALT 14 L, Alkaline Phosphatase 122 H, Total Protein 6.1 L, Albumin 2.8 L, Globulin 3.3, Albumin/Globulin Ratio 0.8 L, Blood Type A POSITIVE, Antibody Screen NEGATIVE, Crossmatch See Detail 04/23/23 11:32: POC Glucose 142 H 04/23/23 15:00: Hgb 7.4 L, Hct 24.1 L 04/23/23 18:01: POC Glucose 119 H 04/23/23 20:40: Hgb 6.9 L, Hct 22.8 L 04/23/23 21:04: POC Glucose 157 H 04/24/23 02:16: WBC 6.8, RBC 2.39 L, Hgb 6.9 L, Hct 23.2 L, MCV 97.1 H D, MCH 28.9, MCHC 29.7 L, RDW Std Deviation 64.5 H, RDW Coeff of Joana 18.6 H, Plt Count 207, MPV 11.4, Immature Gran % (Auto) 0.300, Neut % (Auto) 68.5, Lymph % (Auto) 21.5, [place] % (Auto) 7.5, Eos % (Auto) 1.9, Baso % (Auto) 0.3, Absolute Neuts (auto) 4.7, Absolute Lymphs (auto) 1.46, Nucleated RBC % 0.3, Sodium 136, Potassium 4.0, Chloride 103, Carbon Dioxide 28.0, Anion Gap 5, BUN 45 H, Creatinine 5.76 H, Estim Creat Clear Calc 13.07, Est GFR (MDRD) Af Amer 13 L, Est GFR (MDRD) Non-Af 11 L, BUN/Creatinine Ratio 7.8 L, Glucose 86, Calcium 8.3 L, Phosphorus 4.7, Magnesium 2.3 04/24/23 06:12: POC Glucose 90 Micro: Microbiology 04/23/23 08:00 Stool Stool Occult Blood (ИВАН) - Final Occult Blood Positive Physical Exam Narrative GENERAL: cooperative HEENT: Atraumatic; normocephalic EYES; Anicteric, pallor of the conjunctiva NECK; supple, normal thyroid, RESPIRATORY: Diminished to auscultation CARDIOVASCULAR: Regular S1 S2, GI: soft, normoactive bowel sounds, : No Renal angle tenderness; EXTREMITIES: No edema, no clubbing, MUSCULOSKELETAL: no muscle wasting NEURO: Awake; no lateralizing signs. SKIN: No Rash PSYCH; Flat affect Assessment & Plan Assessment/Plan (1) Acute upper GI bleed: (2) Acute anemia: PLAN: Plan Patient is a 67-year-old gentleman with multiple comorbidities presenting with fatigue and melena found to have hemoglobin of 5.2 1. Acute GI bleed ? Suspected to be upper GI bleed. Patient admitted to monitored bed started on Protonix drip consult placed to GI for possible endoscopic evaluation. Patient is on dual antiplatelet therapy for his underlying coronary artery disease currently placed on hold ? 04/24/2023 scheduled to undergo EGD Impressions : - Tortuous esophagus. - Normal stomach. 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 Injected. Treated with a heater probe. Clip was placed. 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 - No specimens collected. Recommendations : - [facility]. - Resume previous diet. - Continue present medications. - Await pathology results. 2. Anemia ? Secondary to acute blood loss anemia from above with patient being symptomatic and with significant anemia with hemoglobin of 5.2 and order was given for patient to be transfused with 2 unit PRBC with dialysis. Subsequently ordered posttransfusion H&H ? 04/24/2023 hemoglobin came up to 6.9 following transfusion of 2 unit PRBC plan is to transfuse additional unit with his next dialysis 3. End-stage renal disease ? Patient is on dialysis on Wednesdays and Fridays [facility] 4. Diabetes mellitus type II -patient's oral hypoglycemics held. Placed on long acting insulin, Accu-Cheks a.c. and at bedtime and covered with sliding scale insulin 5. History of colon cancer ? Status post subtotal colectomy currently remains in remission 6. Stage 3 severe COPD by GOLD classification ? Currently not in exacerbation aerosol treatment as needed 7. Coronary artery disease ? With history of multivessel angioplasty patient remains on guideline directed medical therapy 8. Obstructive sleep apnea ? On CPAP at night 9. Chronic congestive heart failure with preserved ejection fraction ? Echo from 04/29/2022 demonstrated EF of 50%. Patient remains euvolemic 10. Hypothyroidism - Patient is on levothyroxine home dose continued 11. Dyslipidemia -Patient is on statin therapy, continued at home dose 12. GERD ? On PPI 13. Tobacco dependence - Counseled on cessation, offered nicotine patch for tobacco cravings 14. Chronic hypoxic respiratory failure ? Patient is on baseline home oxygen 15. DVT prophylaxis ? SCDs only given patient presentation Time spent in the patient's overall evaluation,decision-making process, review of diagnostic data, adjustment of management, discussion with other providers, nursing nursing and ancillary staff involved in patient's care documentation, 50 minutes Charges/Coding Visit Charges Inpatient E&M: 98160 [facility] Hosp L3
--- NOTE | 2023-04-24 08:38 | PN.RENAL_ITS ---
Subjective Subjective feeling better after blood transfusion Objective Data Objective Data Vital Signs: Vital Signs Temp Pulse Resp BP Pulse Ox O2 Del Method O2 Flow Rate 97.9 F 79 20 H 103/64 92 Room Air 2 04/24/23 02:25 04/24/23 04:15 04/24/23 02:37 04/24/23 02:25 04/24/23 07:04 04/24/23 07:04 04/24/23 02:44 Oxygen Flow Rate (L/min) 2 Oxygen Delivery Method Room Air Weight: 85.7 kg Body Mass Index (BMI) 26.4 Intake & Output: Intake and Output for Last 24 Hours 04/22/23 04/23/23 04/24/23 23:59 23:59 23:59 Intake Total 1102.67 / 1102.67 96.17 / 96.17 Output Total 2650 / 2650 Balance -1547.33 / -1547.33 96. / 96.17 Lab / Micro Data 04/24/23 02:16 04/24/23 02:16 Labs: Laboratory Results - last 24 hr 04/23/23 07:59: WBC 8.4, RBC 1.75 L, Hgb 5.2 L*, Hct 18.2 L, MCV 104.0 H, MCH 29.7, MCHC 28.6 L, RDW Std Deviation 66.2 H, RDW Coeff of Joana 18.3 H, Plt Count 239, MPV 12.3 H, Immature Gran % (Auto) 0.500, Neut % (Auto) 82.1 H, Lymph % (Auto) 10.4 L, Isabella % (Auto) 5.7, Eos % (Auto) 0.8, Baso % (Auto) 0.5, Absolute Neuts (auto) 6.9, Absolute Lymphs (auto) 0.87, Nucleated RBC % 0, Differential Comment SCANNED, Diff Path Review May foll, Anisocytosis 2+, Blood Type A POSITIVE, Antibody Screen NEGATIVE, Crossmatch See Detail 04/23/23 11:32: POC Glucose 142 H 04/23/23 15:00: Hgb 7.4 L, Hct 24.1 L 04/23/23 18:01: POC Glucose 119 H 04/23/23 20:40: Hgb 6.9 L, Hct 22.8 L 04/23/23 21:04: POC Glucose 157 H 04/24/23 02:16: WBC 6.8, RBC 2.39 L, Hgb 6.9 L, Hct 23.2 L, MCV 97.1 H D, MCH 28.9, MCHC 29.7 L, RDW Std Deviation 64.5 H, RDW Coeff of Joana 18.6 H, Plt Count 207, MPV 11.4, Immature Gran % (Auto) 0.300, Neut % (Auto) 68.5, Lymph % (Auto) 21.5, Isabella % (Auto) 7.5, Eos % (Auto) 1.9, Baso % (Auto) 0.3, Absolute Neuts (a uto) 4.7, Absolute Lymphs (auto) 1.46, Nucleated RBC % 0.3, Sodium 136, Potassium 4.0, Chloride 103, Carbon Dioxide 28.0, Anion Gap 5, BUN 45 H, Creatinine 5.76 H, Estim Creat Clear Calc 13.07, Est GFR (MDRD) Af Amer 13 L, Est GFR (MDRD) Non-Af 11 L, BUN/Creatinine Ratio 7.8 L, Glucose 86, Calcium 8.3 L, Phosphorus 4.7, Magnesium 2.3 04/24/23 06:12: POC Glucose 90 Micro: Microbiology 04/23/23 08:00 Stool Stool Occult Blood (ИВАН) - Final Occult Blood Positive Physical Exam Const alert and oriented x3 Resp clear to auscultation bilaterally Cardio regular rate GI non-tender and non-distended Auscultation: normoactive bowel sounds Palpation: soft Extremity no clubbing, cyanosis or edema Psych cooperative Assessment & Plan Assessment/Plan (1) ESRD (end stage renal disease) on dialysis: PLAN: dialysis MWF. tolerated tx well yesterday. Next dialysis tomorrow (2) Acute anemia: PLAN: endoscopy per GI, hgb 6.9g. Transfuse as needed for hgb >9 with hx CAD. iv iron, REE therapy (3) History of colon cancer: (4) Hypertension: QUALIFIERS: Hypertension type: primary hypertension Qualified Code(s): I10 - Essential (primary) hypertension PLAN: BP still low
[2023-04-24] MEDS: Lactated Ringers 1,000 ML 15 ML IV (10:36)
--- NOTE | 2023-04-24 13:02 | OP.EGD_ITS ---
Patient Name: Yves Romero Procedure Date: 04/24/2023 12:10 PM Date of : 1955 Age: 67 Procedure: Upper GI endoscopy Indications: Iron deficiency anemia, Melena Providers: Zane Teresa DO Medicines: Monitored Anesthesia Care Patient Profile: This is a 67 year old male. Refer to note in patient chart for documentation of history and physical. Complications: No immediate complications. Procedure: Pre-Anesthesia Assessment: - Prior to the procedure, a History and Physical was performed, and patient medications and allergies were reviewed. The patient is competent. The risks and benefits of the procedure and the sedation options and risks were discussed with the patient. All questions were answered and informed consent was obtained. Patient identification and proposed procedure were verified by the physician in the pre-procedure area. Mental Status Examination: alert and oriented. Airway Examination: normal oropharyngeal airway and neck mobility. Respiratory Examination: clear to auscultation. CV Examination: normal. Prophylactic Antibiotics: The patient does not require prophylactic antibiotics. Prior Anticoagulants: The patient has taken no anticoagulant or antiplatelet agents. ASA Grade Assessment: III - A patient with severe systemic disease. After reviewing the risks and benefits, the patient was deemed in satisfactory condition to undergo the procedure. The anesthesia plan was to use monitored anesthesia care (MAC). Immediately prior to administration of medications, the patient was re-assessed for adequacy to receive sedatives. The heart rate, respiratory rate, oxygen saturations, blood pressure, adequacy of pulmonary ventilation, and response to care were monitored throughout the procedure. The physical status of the patient was re-assessed after the procedure. After obtaining informed consent, the endoscope was passed under direct vision. Throughout the procedure, the patient's blood pressure, pulse, and oxygen saturations were monitored continuously. The Endoscope was introduced through the mouth, and advanced to the second part of duodenum. The Duodenoscope was introduced through the and advanced to the. The upper GI endoscopy was accomplished without difficulty. The patient tolerated the procedure well. Scope In: 12:17:42 PM Scope Out: 12:42:26 PM Total Procedure Duration Time 0 hours 24 minutes 44 seconds Findings: The middle third of the esophagus was moderately tortuous. The entire examined stomach was normal. A single 15 mm angiodysplastic lesion with bleeding was found in the second portion of the duodenum. Area was successfully injected with 5 mL of a 0.1 mg/mL solution of epinephrine for drug delivery. Coagulation for hemostasis using heater probe was successful. For hemostasis, one hemostatic clip was successfully placed. Clip surety bond agent: Teliris. There was no bleeding at the end of the procedure. Impression: - Tortuous esophagus. - Normal stomach. 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 Injected. Treated with a heater probe. Clip was placed. Clip surety bond agent: Teliris. - No specimens collected. Recommendation: - [facility] care. - Resume previous diet. - Continue present medications. - Await pathology results. Procedure Code(s): --- Professional --- 16028, Esophagogastroduodenoscopy, flexible, transoral; with control of bleeding, any method 06935, 59,51, Esophagogastroduodenoscopy, flexible, transoral; with directed submucosal injection(s), any substance CPT copyright 2021 [employer]. All rights reserved. The codes documented in this report are preliminary and upon lastex thread winder review may be revised to meet current compliance requirements. Zane Teresa DO 04/24/2023 1:01:33 PM This report has been signed electronically. Number of Addenda: 0 Note Initiated On: 04/24/2023 12:10 PM
--- NOTE | 2023-04-24 13:02 | OP.CCLET_ITS ---
04/24/2023 Jonathan Baptiste Do Re : Upper GI endoscopy procedure for Yves Romero Dear Emile This procedure was performed on April. My impressions and recommendations are as follows: Impressions : - Tortuous esophagus. - Normal stomach. 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 Injected. Treated with a heater probe. Clip was placed. 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 - No specimens collected. Recommendations : - [facility] to [facility] for [facility] care. - Resume previous diet. - Continue present medications. - Await pathology results. My findings are described in the full procedure note, which is enclosed. If I can be of further assistance, please feel free to contact me at . Sincerely, Zane Teresa, 04/24/2023 1:01:33 PM This report has been signed electronically.
[2023-04-24 16:22] LABS: Bedside Glucose 122 mg/dL (74-106)
--- NOTE | 2023-04-24 16:30 | CASEMGMT ---
DEVEN SAAVEDRA DC Planning Assessment: Face to Face with patient for initial transition planning/care coordination assessment. DEVEN SAAVEDRA introduced self and role at [facility], pt voices understanding and is agreeable to participating in assessment. Pt alert and answering questions appropriately. Care providers, pharmacy, and demographics verified. Admitting dx: Anemia LACE Stratification: 2 PCP: Emile Specialists: Chino (factory lay out engineer), Dago (director experimental medicine), Cain (talent acquisition assistant) Preferred Pharmacy: [facility] Insurance: Hermila [facility] Prescription Benefit: yes Living Will/HPOA: no living will, HPOA: sisters Leslye and Vita LNOK: sisters Leslye and Vita Living Arrangements: Pt lives alone in a mobile home with 5 steps to enter w/handrail. Pt states he has some difficulty with the steps. Pt states he is independent with ADLs and IADLs. Transportation: Pt drives and currently is borrowing a friend's car. Pt states he has used [employer] in the past. DME: cane, walker, hospital bed, shower chair, grab bars, glucometer and all supplies (checks his glucose qAM and qPM) SNF/HHC: pt denies any previous providers HD: MWF at [facility], chair time 0730 Pt's goal/plan: Pt states he plans to return home with the support of his sisters. Pt states he has not been out of bed since admission but anticipates he will be able to return home. Denies a need for HH at this time. Will continue to monitor and assist with further DC needs as identified. Cecilia Hwang RN AC
[2023-04-25] VITALS (16 sets, daily range): BP systolic 102–221; BP diastolic 46–97; PULSE 70–81; RESP 15–20; TEMP 36.3–36.7; O2SAT 90–100; BMI 26.3; BMI 26.5
[2023-04-25 01:09] LABS: Bedside Glucose 123 mg/dL (74-106)
[2023-04-25 06:42] LABS: Absolute Lymphocyte Count 0.92 X10^3/uL (0.83-4.51); Absolute Neutrophil Count 5.4 X10^3/uL (2.0-7.7); Basophil# 0.04 X10^3/uL; Basophil% 0.6 % (0-1); Eosinophil# 0.13 X10^3/uL; Eosinophils% 1.8 % (0-5); Hematocrit 24.2 % (40-54); Hemoglobin 7.3 g/dL (13.0-16.5); Lymphocyte # 0.92 X10^3/ul (0.83-4.51); Lymphocyte % 12.9 % (19-41); Mean Corp Hgb Conc 30.2 g/dL (32-36); Mean Corpuscular Hgb 29.6 pg (27.0-32.0); Mean Platelet Vol. 11.6 fl (6.2-12.0); Monocyte# 0.63 X10^3/uL; Monocyte% 8.8 % (0-10); NRBC Flagged by Analyzer 0 % (0-5); Neutrophil # 5.37 X10^3/uL (2.7-7.7); Neutrophil % 75.5 % (47-70); Platelet Count 208 K/mm3 (150-450); RBC Distribution Width CV 17.5 % (11.6-14.6); RBC Distribution Width SD 62.3 fl (35.1-43.9); Red Blood Count 2.47 M/mm3 (4.6-6.2); White Blood Count 7.1 K/mm3 (4.4-11.0)
[2023-04-25 07:15] LABS: Pathologist Review Reviewed
[2023-04-25 07:19] LABS: Anion Gap 8 (5-15); BUN 54 mg/dL (7-18); BUN/Creat Ratio 7.3 RATIO (10-20); Calcium,Total 8.1 mg/dL (8.5-10.1); Chloride 103 mmol/L (98-107); Creatinine, Serum 7.39 mg/dL (0.70-1.30); EST Glomerular Filtration Rate 8 mL/min (>60); Est Glom Filt Rate - Afr Amer 10 mL/min (>60); Estimated Creatinine Clearance 10.19 ml/min; Glucose 108 mg/dL (74-106); Potassium 4.6 mmol/L (3.5-5.1); Sodium Level 137 mmol/L (136-145)
[2023-04-25 07:58] LABS: Bedside Glucose 106 mg/dL (74-106)
[2023-04-25] MEDS: PureFlow B 2K Dialysis Soln 1 BAG 6 BAG PF (08:20)
--- NOTE | 2023-04-25 08:20 | PN.HOSP_ITS ---
Reason for Visit Reason for Visit: Diagnoses Anemia, unspecified (04/23/23) Essential (primary) hypertension (04/23/23) Gastrointestinal hemorrhage, unspecified (04/23/23) End stage renal disease (04/23/23) Personal history of other malignant neoplasm of large intestine (04/23/23) Personal history of other diseases of the circulatory system (04/23/23) Dependence on renal dialysis (04/23/23) Subjective Subjective Patient seen admitted significant improvement in overall clinical condition. Hemoglobin 7.3. Patient to receive 1 unit PRBC transfusion with dialysis after which patient be assessed for possible discharge Objective Data Objective Data Vital Signs: Vital Signs Temp Pulse Resp BP Pulse Ox O2 Del Method O2 Flow Rate 98.0 F 78 18 110/72 99 Nasal Cannula 2 04/25/23 06:00 04/25/23 06:00 04/25/23 06:00 04/25/23 06:00 04/25/23 06:00 04/25/23 06:00 04/25/23 06:00 Oxygen Flow Rate (L/min) 2 Oxygen Delivery Method Nasal Cannula Weight: 85.7 kg Body Mass Index (BMI) 26.3 Intake & Output: Intake and Output for Last 24 Hours 04/23/23 04/24/23 04/25/23 23:59 23:59 23:59 Intake Total 1102.67 / 1102.67 836.17 / 1036.17 400 / 400 Output Total 2650 / 2650 100 / 100 0 / 0 Balance -1547.33 / -1547.33 736.17 / 936.17 400 / 400 Lab / Micro Data 04/25/23 06:15 04/25/23 06:15 Labs: Laboratory Results - last 24 hr 04/23/23 07:59: Diff Path Review Reviewed 04/24/23 16:04: POC Glucose 122 H 04/24/23 22:15: POC Glucose 123 H 04/25/23 06:10: POC Glucose 106 04/25/23 06:15: WBC 7.1, RBC 2.47 L, Hgb 7.3 L, Hct 24.2 L, MCV 98.0 H, MCH 29.6, MCHC 30.2 L, RDW Std Deviation 62.3 H, RDW Coeff of Joana 17.5 H, Plt Count 208, MPV 11.6, Immature Gran % (Auto) 0.400, Neut % (Auto) 75.5 H, Lymph % (Auto) 12.9 L, [place] % (Auto) 8.8, Eos % (Auto) 1.8, Baso % (Auto) 0.6, Absolute Neuts (auto) 5.4, Absolute Lymphs (auto) 0.92, Nucleated RBC % 0, Sodium 137, Potassium 4.6, Chloride 103, Carbon Dioxide 26.0, Anion Gap 8, BUN 54 H, Creatinine 7.39 H, Estim Creat Clear Calc 10.19, Est GFR (MDRD) Af Amer 10 L, Est GFR (MDRD) Non-Af 8 L, BUN/Creatinine Ratio 7.3 L, Glucose 108 H, Calcium 8.1 L Micro: Microbiology 04/23/23 08:00 Stool Stool Occult Blood (ИВАН) - Final Occult Blood Positive Physical Exam Narrative GENERAL: cooperative HEENT: Atraumatic; normocephalic EYES; Anicteric, pallor of the conjunctiva NECK; supple, normal thyroid, RESPIRATORY: Diminished to auscultation CARDIOVASCULAR: Regular S1 S2, GI: soft, normoactive bowel sounds, : No Renal angle tenderness; EXTREMITIES: No edema, no clubbing, MUSCULOSKELETAL: no muscle wasting NEURO: Awake; no lateralizing signs. SKIN: No Rash PSYCH; Flat affect Assessment & Plan Assessment/Plan (1) Acute upper GI bleed: (2) Acute anemia: PLAN: Plan Patient is a 67-year-old gentleman with multiple comorbidities presenting with fatigue and melena found to have hemoglobin of 5.2 1. Acute GI bleed ? Suspected to be upper GI bleed. Patient admitted to monitored bed started on Protonix drip consult placed to GI for possible endoscopic evaluation. Patient is on dual antiplatelet therapy for his underlying coronary artery disease currently placed on hold ? 04/24/2023 scheduled to undergo EGD Impressions : - Tortuous esophagus. - Normal stomach. 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 Injected. Treated with a heater probe. Clip was placed. 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 - No specimens collected. Recommendations : - [facility] for [facility]. - Resume previous diet. - Continue present medications. - Await pathology results. ? 04/25/2023;Patient seen admitted significant improvement in overall clinical condition. Hemoglobin 7.3. Patient to receive 1 unit PRBC transfusion with dialysis after which patient be assessed for possible discharge 2. Anemia ? Secondary to acute blood loss anemia from above with patient being symptomatic and with significant anemia with hemoglobin of 5.2 and order was given for patient to be transfused with 2 unit PRBC with dialysis. Subsequently ordered posttransfusion H&H ? 04/24/2023 hemoglobin came up to 6.9 following transfusion of 2 unit PRBC plan is to transfuse additional unit with his next dialysis 3. End-stage renal disease ? Patient is on dialysis on Wednesdays and Fridays consult placed the patient survey project manager for dialysis orders 4. Diabetes mellitus type II -patient's oral hypoglycemics held. Placed on long acting insulin, Accu-Cheks a.c. and at bedtime and covered with sliding scale insulin 5. History of colon cancer ? Status post subtotal colectomy currently remains in remission 6. Stage 3 severe COPD by GOLD classification ? Currently not in exacerbation aerosol treatment as needed 7. Coronary artery disease ? With history of multivessel angioplasty patient remains on guideline directed medical therapy 8. Obstructive sleep apnea ? On CPAP at night 9. Chronic congestive heart failure with preserved ejection fraction ? Echo from 04/29/2022 demonstrated EF of 50%. Patient remains euvolemic 10. Hypothyroidism - Patient is on levothyroxine home dose continued 11. Dyslipidemia -Patient is on statin therapy, continued at home dose 12. GERD ? On PPI 13. Tobacco dependence - Counseled on cessation, offered nicotine patch for tobacco cravings 14. Chronic hypoxic respiratory failure ? Patient is on baseline home oxygen 15. DVT prophylaxis ? SCDs only given patient presentation Time spent in the patient's overall evaluation,decision-making process, review of diagnostic data, adjustment of management, discussion with other providers, nursing nursing and ancillary staff involved in patient's care documentation, 35 minutes
--- NOTE | 2023-04-25 08:59 | PCM.PN.BLA ---
Progress Note dialysis this morning, labs reviewed hgb 7.3 today. Transfuse 1u prbc. Continue with iv iron and REE therapy. s/p EGD, appreciate GI input Physical Exam Narrative VSS, AF Assessment & Plan Assessment/Plan (1) ESRD (end stage renal disease) on dialysis: PLAN: dialysis today no heparin (2) Acute anemia: PLAN: s/p endoscopy hgb 7.3g. Transfuse as needed for hgb >9 with hx CAD. iv iron, REE therapy (3) History of colon cancer: (4) Hypertension: QUALIFIERS: Hypertension type: primary hypertension Qualified Code(s): I10 - Essential (primary) hypertension PLAN: BP still low
[2023-04-25] MEDS: Sodium Ferric Gluconat/Sucrose 125 MG in 0.9% Normal Saline (100mL Bag) 100 ML 110 MG IV (10:10)
[2023-04-25] MEDS: Epoetin Alfa epbx 10,000 UNITS/ML 10000 UNIT IV (10:49)
[2023-04-25] MEDS: 0.9% Normal Saline 1,000 ML IV.SOLN. 1000 ML OPERA.SITE (11:37)
[2023-04-25 11:41] LABS: Bedside Glucose 101 mg/dL (74-106)
--- NOTE | 2023-04-25 12:04 | PCM.DC.SUM ---
Providers Date of Admission: 04/23/23 Date of Discharge: 04/25/23 Primary Care Physician: Dr. Jonathan Baptiste, Consultations 04/23/23 08:50 Consult: Gastroenterology Routine Consulting Provider: [facility] Reason for Consult: GI bleed EMERGENT Consult: No Notified: Yes Date Notified: 04/23/23 Time Notified: 08:50 Method of Notification: ED Physician Initiated 04/23/23 10:29 Consult: Nephrology Routine Consulting Provider: Daysi Magana Reason for Consult: dialysis M,W,F EMERGENT Consult: No Notified: Yes Date Notified: 04/23/23 Time Notified: 10:29 Method of Notification: Text Reason For Visit: ANEMIA Diagnosis Discharge Diagnosis (1) Acute upper GI bleed: Status: Acute Code(s): K92.2 - Gastrointestinal hemorrhage, unspecified (2) Acute anemia: Status: Acute Code(s): D64.9 - Anemia, unspecified Plan Patient is a 67-year-old gentleman with multiple comorbidities presenting with fatigue and melena found to have hemoglobin of 5.2 1. Acute GI bleed ? Suspected to be upper GI bleed. Patient admitted to monitored bed started on Protonix drip consult placed to GI for possible endoscopic evaluation. Patient is on dual antiplatelet therapy for his underlying coronary artery disease currently placed on hold ? 04/24/2023 scheduled to undergo EGD Impressions : - Tortuous esophagus. - Normal stomach. 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 Injected. Treated with a heater probe. Clip was placed. 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 - No specimens collected. Recommendations : - [facility]. - Resume previous diet. - Continue present medications. - Await pathology results. ? 04/25/2023;Patient seen admitted significant improvement in overall clinical condition. Hemoglobin 7.3. Patient to receive 1 unit PRBC transfusion with dialysis after which patient be assessed for possible discharge 2. Anemia ? Secondary to acute blood loss anemia from above with patient being symptomatic and with significant anemia with hemoglobin of 5.2 and order was given for patient to be transfused with 2 unit PRBC with dialysis. Subsequently ordered posttransfusion H&H ? 04/24/2023 hemoglobin came up to 6.9 following transfusion of 2 unit PRBC plan is to transfuse additional unit with his next dialysis 3. End-stage renal disease ? 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 Diabetes mellitus type II -patient's oral hypoglycemics held. Placed on long acting insulin, Accu-Cheks a.c. and at bedtime and covered with sliding scale insulin 5. History of colon cancer ? Status post subtotal colectomy currently remains in remission 6. Stage 3 severe COPD by GOLD classification ? Currently not in exacerbation aerosol treatment as needed 7. Coronary artery disease ? With history of multivessel angioplasty patient remains on guideline directed medical therapy 8. Obstructive sleep apnea ? On CPAP at night 9. Chronic congestive heart failure with preserved ejection fraction ? Echo from 04/29/2022 demonstrated EF of 50%. Patient remains euvolemic 10. Hypothyroidism - Patient is on levothyroxine home dose continued 11. Dyslipidemia -Patient is on statin therapy, continued at home dose 12. GERD ? On PPI 13. Tobacco dependence - Counseled on cessation, offered nicotine patch for tobacco cravings 14. Chronic hypoxic respiratory failure ? Patient is on baseline home oxygen 15. DVT prophylaxis ? SCDs only given patient presentation Time spent in the patient's overall evaluation,decision-making process, review of diagnostic data, adjustment of management, discussion with other providers, nursing nursing and ancillary staff involved in patient's care documentation, 35 minutes Medications at Discharge Home Medications oxycodone 5 mg tablet 5 mg PO BID PRN PRN Pain 05/14/17 finasteride 5 mg tablet 5 mg PO DAILY prostate 09/15/17 isosorbide mononitrate 30 mg tablet,extended release 24 hr 15 mg PO DAILY heart 09/15/17 diazepam 5 mg tablet 5 - 10 mg PO BID PRN anxiety 05/12/18 escitalopram oxalate 20 mg tablet (Lexapro) 20 mg PO DAILY depression 09/30/19 ipratropium 0.5 mg-albuterol 3 mg (2.5 mg base)/3 mL nebulization soln 3 ml inhalation Q4H PRN shortness of breath or wheezing 09/30/19 levothyroxine 88 mcg tablet 88 mcg PO DAILY thyroid 12/07/19 albuterol sulfate 90 mcg/actuation aerosol inhaler 2 puff inhalation 4X/DAY breathing 04/28/21 cholecalciferol (vitamin D3) 50 mcg (2,000 unit) capsule (Vitamin D3) 2,000 unit PO DAILY vitamin 04/28/21 loperamide 2 mg capsule 2 mg PO Q4H PRN PRN loose stool 04/28/21 rosuvastatin 10 mg tablet 10 mg PO DAILY cholesterol 04/28/21 clopidogrel 75 mg tablet 75 mg PO DAILY HEART 04/01/22 insulin degludec 100 unit/mL (3 mL) subcutaneous pen (Tresiba FlexTouch U-100 insulin) 20 - 25 unit subcut BID diabetes 04/01/22 insulin lispro 100 unit/mL subcutaneous pen See Rx Instructions .Route .COMPLEX DM 04/01/22 ferrous sulfate 325 mg (65 mg iron) tablet,delayed release 325 mg PO QODAY supplement #30 tabs 05/03/22 sodium chloride 0.65 % nasal spray aerosol (Deep Sea Nasal) 2 spray NASAL Q4H PRN PRN Nasal Dryness #0 mL 05/03/22 guaifenesin 1,200 mg tablet, extended release 12 hr (Mucus Relief ER) 1,200 mg PO BID COUGH #60 tabs 09/10/22 nitroglycerin 0.4 mg sublingual tablet 0.4 mg sublingual Q5M PRN Chest Pain #25 tabs 11/21/22 fluticasone fur. 200 mcg-umeclid 62.5 mcg-vilant 25 mcg inhalat.powder (Trelegy Ellipta) 1 inh inhalation DAILY SHORTNESS OF BREATH #60 ea 04/07/23 pantoprazole 40 mg tablet,delayed release 40 mg PO BID GI #100 tabs 04/25/23 Physical Exam Narrative GENERAL: cooperative HEENT: Atraumatic; normocephalic EYES; Anicteric, pallor of the conjunctiva NECK; supple, normal thyroid, RESPIRATORY: Diminished to auscultation CARDIOVASCULAR: Regular S1 S2, GI: soft, normoactive bowel sounds, : No Renal angle tenderness; EXTREMITIES: No edema, no clubbing, MUSCULOSKELETAL: no muscle wasting NEURO: Awake; no lateralizing signs. SKIN: No Rash PSYCH; Flat affect Weight / BMI Weight Weight: 85.701 kg Body Mass Index (BMI) 26.3 ABG / Lab / Microbiology Data 04/25/23 06:15 04/25/23 06:15 Laboratory: Laboratory Results - last 24 hr 04/23/23 07:59: Diff Path Review Reviewed 04/24/23 07:39: Crossmatch See Detail 04/24/23 16:04: POC Glucose 122 H 04/24/23 22:15: POC Glucose 123 H 04/25/23 06:10: POC Glucose 106 04/25/23 06:15: WBC 7.1, RBC 2.47 L, Hgb 7.3 L, Hct 24.2 L, MCV 98.0 H, MCH 29.6, MCHC 30.2 L, RDW Std Deviation 62.3 H, RDW Coeff of Joana 17.5 H, Plt Count 208, MPV 11.6, Immature Gran % (Auto) 0.400, Neut % (Auto) 75.5 H, Lymph % (Auto) 12.9 L, [place] % (Auto) 8.8, Eos % (Auto) 1.8, Baso % (Auto) 0.6, Absolute Neuts (auto) 5.4, Absolute Lymphs (auto) 0.92, Nucleated RBC % 0, Sodium 137, Potassium 4.6, Chloride 103, Carbon Dioxide 26.0, Anion Gap 8, BUN 54 H, Creatinine 7.39 H, Estim Creat Clear Calc 10.19, Est GFR (MDRD) Af Amer 10 L, Est GFR (MDRD) Non-Af 8 L, BUN/Creatinine Ratio 7.3 L, Glucose 108 H, Calcium 8.1 L 04/25/23 11:11: POC Glucose 101 Microbiology: Microbiology 04/23/23 08:00 Stool Stool Occult Blood (ИВАН) - Final Occult Blood Positive D/C Instructions Discharge Diet: 1800 Calorie Control Diet and Renal Diet Discharge Activity: Return to Normal Activity Call your doctor if you observe: Fever of 101 or Higher, Shortness of breath, Fainting spells and Chest pain Meaningful Use Info Meaningful Use Diagnoses (Choose all that apply): None applicable Discharge Plan Admission Admit Date/Time: 04/23/23 08:46 Attending Provider: Felix Cha Primary Care Provider: Jonathan Baptiste Consulting Providers: Daysi Magana Discharge Orders/Prescriptions Prescriptions: Continued ipratropium-albuterol 0.5 mg-3 mg(2.5 mg base)/3 mL solution for nebulization 3 ml INHALATION Q4H PRN (Reason: shortness of breath or wheezing) escitalopram oxalate [Lexapro] 20 mg tablet 20 mg PO DAILY nitroglycerin 0.4 mg tablet, sublingual 0.4 mg SUBLINGUAL Q5M PRN (Reason: Chest Pain) Qty: 25 3RF oxycodone 5 MG tablet 5 mg PO BID PRN PRN (Reason: Pain) Patient Comments: take 1 tablet by mouth twice a day if needed for pain Rx Instructions: 5-10mg finasteride 5 MG tablet 5 mg PO DAILY isosorbide mononitrate 30 MG tablet 15 mg PO DAILY diazepam 5 MG tablet 5 - 10 mg PO BID PRN (Reason: anxiety) levothyroxine 88 MCG tablet 88 mcg PO DAILY loperamide 2 mg capsule 2 mg PO Q4H PRN PRN (Reason: loose stool) Patient Comments: take 1 capsule by mouth every 4 hours if needed for LOOSE STOOL albuterol sulfate 90 mcg/actuation HFA aerosol inhaler 2 puff INHALATION 4X/DAY Patient Comments: inhale 2 puffs by mouth and INTO THE LUNGS four times a day rosuvastatin 10 mg tablet 10 mg PO DAILY Patient Comments: take 1 tablet by mouth once daily insulin lispro 100 unit/mL insulin pen See Rx Instructions .ROUTE .COMPLEX Rx Instructions: PT STATES HE TAKE TID WITH MEALS PER SLIDING SCALE. HE IS UNABLE TO PROVIDE SLIDING SCALE INFO. insulin degludec [Tresiba FlexTouch U-100] 100 unit/mL (3 mL) insulin pen 20 - 25 unit SUBCUT BID Patient Comments: PT USUALLY TAKES 20-25 UNITS DEPENDING ON BLOOD SUGAR BID Deep Sea Nasal 0.65 % Aerosol,[place] 2 spray NASAL Q4H PRN PRN (Reason: Nasal Dryness) Qty: 0 0RF ferrous sulfate 325 mg (65 mg iron) tablet,delayed release (DR/EC) 325 mg PO QODAY Qty: 30 0RF Patient Comments: take 1 tablet by mouth once daily pantoprazole 40 mg Tablet,Delayed Release (Dr/Ec) 40 mg PO BID Qty: 100 0RF Rx Instructions: 40 mg twice daily for 4 weeks and then once daily guaifenesin [Mucus Relief ER] 1,200 mg tablet extended release 12hr 1,200 mg PO BID Qty: 60 11RF Trelegy Ellipta 200-62.5-25 mcg blister with device 1 inh inhalation DAILY Qty: 60 6RF Patient Comments: SHORTNESS OF BREATH Held clopidogrel 75 mg tablet 75 mg PO DAILY Hold Instructions: Resume on 05/09/23. No Action cholecalciferol (vitamin D3) [Vitamin D3] 50 mcg (2,000 unit) capsule 2,000 unit PO DAILY Patient Comments: take 2 capsules by mouth once daily Referrals / Follow Up: Jonathan Baptiste DO [Primary Care Provider] - Within 1 Week Disposition Disposition (needs filled in before D/C Order can be placed): Home, Self Care Charges/Coding Visit Charges Inpatient E&M: 61254 Disch Hosp >30min
--- NOTE | 2023-04-25 12:19 | CASEMGMT ---
DEVEN CM to pt room now. Pt denies needing OP Therapy or HHC at this time. Pt states he feels safe and comfortable being DC today and states that he will drive himself home. Denies further needs.
--- NOTE | 2023-04-25 13:53 | PHA.DC_ITS ---
Pharmacy [facility] Med Reconciliation Pharmacy Service has performed discharge medication reconciliation for this patient. The patient's discharge medication list was reviewed for discrepancies and discrepancies were resolved. Medications at Discharge Home Medications oxycodone 5 mg tablet 5 mg PO BID PRN PRN Pain 05/14/17 finasteride 5 mg tablet 5 mg PO DAILY prostate 09/15/17 isosorbide mononitrate 30 mg tablet,extended release 24 hr 15 mg PO DAILY heart 09/15/17 diazepam 5 mg tablet 5 - 10 mg PO BID PRN anxiety 05/12/18 escitalopram oxalate 20 mg tablet (Lexapro) 20 mg PO DAILY depression 09/30/19 ipratropium 0.5 mg-albuterol 3 mg (2.5 mg base)/3 mL nebulization soln 3 ml inhalation Q4H PRN shortness of breath or wheezing 09/30/19 levothyroxine 88 mcg tablet 88 mcg PO DAILY thyroid 12/07/19 albuterol sulfate 90 mcg/actuation aerosol inhaler 2 puff inhalation 4X/DAY breathing 04/28/21 cholecalciferol (vitamin D3) 50 mcg (2,000 unit) capsule (Vitamin D3) 2,000 unit PO DAILY vitamin 04/28/21 loperamide 2 mg capsule 2 mg PO Q4H PRN PRN loose stool 04/28/21 rosuvastatin 10 mg tablet 10 mg PO DAILY cholesterol 04/28/21 clopidogrel 75 mg tablet 75 mg PO DAILY HEART 04/01/22 insulin degludec 100 unit/mL (3 mL) subcutaneous pen (Tresiba FlexTouch U-100 insulin) 20 - 25 unit subcut BID diabetes 04/01/22 insulin lispro 100 unit/mL subcutaneous pen See Rx Instructions .Route .COMPLEX DM 04/01/22 ferrous sulfate 325 mg (65 mg iron) tablet,delayed release 325 mg PO QODAY sup plement #30 tabs 05/03/22 sodium chloride 0.65 % nasal spray aerosol (Deep Sea Nasal) 2 spray NASAL Q4H PRN PRN Nasal Dryness #0 mL 05/03/22 guaifenesin 1,200 mg tablet, extended release 12 hr (Mucus Relief ER) 1,200 mg PO BID COUGH #60 tabs 09/10/22 nitroglycerin 0.4 mg sublingual tablet 0.4 mg sublingual Q5M PRN Chest Pain #25 tabs 11/21/22 fluticasone fur. 200 mcg-umeclid 62.5 mcg-vilant 25 mcg inhalat.powder (Trelegy Ellipta) 1 inh inhalation DAILY SHORTNESS OF BREATH #60 ea 04/07/23 pantoprazole 40 mg tablet,delayed release 40 mg PO BID GI #100 tabs 04/25/23
== END 2023-04-25 14:50 | disposition home or self-care (01) | DRG 377 ==
LOC: ED 08:58 → PCU 09:11
PROVIDERS: Internal Medicine Gastroenterology; Admitting Provider Internal Medicine; Emergency Provider Emergency Medicine; PCP Student in an Organized Health Care Education/Training Program; Visit Provider Internal Medicine
PROC: 0DJ08ZZ Inspection of Upper Intestinal Tract, Via Natural or Artificial Opening Endoscopic (ICD-10-PCS; CPT 43235; principal; 2023-04-24 11:30)
DX: K31.811 Angiodysplasia of stomach and duodenum with bleeding (principal); N18.6 End stage renal disease; I13.2 Hypertensive heart and chronic kidney disease with heart failure and with stage 5 chronic kidney disease, or end stage renal disease; D62 Acute posthemorrhagic anemia; J96.11 Chronic respiratory failure with hypoxia; I50.32 Chronic diastolic (congestive) heart failure; D63.1 Anemia in chronic kidney disease; E11.22 Type 2 diabetes mellitus with diabetic chronic kidney disease; J44.9 Chronic obstructive pulmonary disease, unspecified; E11.51 Type 2 diabetes mellitus with diabetic peripheral angiopathy without gangrene; Z99.2 Dependence on renal dialysis; Z79.4 Long term (current) use of insulin; E03.9 Hypothyroidism, unspecified; G47.33 Obstructive sleep apnea (adult) (pediatric); I25.5 Ischemic cardiomyopathy; I25.10 Atherosclerotic heart disease of native coronary artery without angina pectoris; E78.00 Pure hypercholesterolemia, unspecified; K21.9 Gastro-esophageal reflux disease without esophagitis; F17.210 Nicotine dependence, cigarettes, uncomplicated; Z99.81 Dependence on supplemental oxygen; Z79.02 Long term (current) use of antithrombotics/antiplatelets; Z79.51 Long term (current) use of inhaled steroids; Z79.890 Hormone replacement therapy; Z79.899 Other long term (current) drug therapy; Z95.5 Presence of coronary angioplasty implant and graft; Z90.49 Acquired absence of other specified parts of digestive tract; Z90.2 Acquired absence of lung [part of]; Z85.038 Personal history of other malignant neoplasm of large intestine
CPT/HCPCS: 36415; 80048; 80053; 82274; 82962; 83735; 84100; 85014; 85018; 85025; 85610; 85730; 86850; 86900; 86901; 86920; 86922; 90937; 93005; 94640; 94668; 99252; 99285; 99406; J7030; J7040; J7050; J7120; P9016; A4216; G0257; G0463; J2405; J2916; J3490; Q5106

== ENCOUNTER 2023-08-20 11:13 | Inpatient (IN) | payer MEDICARE, MEDICAID, SELFPAY ==
[2023-08-20] VITALS (14 sets, daily range): BP systolic 128–151; BP diastolic 72–86; PULSE 92–106; RESP 14–28; TEMP 36.6–36.9; O2SAT 83–96; BMI 20.9; BMI 22.5; BMI 23.6
--- NOTE | 2023-08-20 11:36 | RAD_ITS ---
INDICATION: fall EXAMINATION/TECHNIQUE: X-RAY - RIGHT XR Femur Min 2 Views 4 VIEWS COMPARISON: No relevant prior comparison study available FINDINGS: SOFT TISSUES: No soft tissue swelling or gas. Vascular calcifications. BONES/JOINTS: Probable impacted subcapital fracture of the femoral neck. Normal alignment. No evidence of dislocation. No sclerotic or destructive changes observed. RAD/Femur Min 2 Views IMPRESSION: Probable impacted fracture of the right femoral neck. CT scan of the pelvis might be of value. Electronically Signed: Maulik Knowles MD at 12:38 EDT ,
--- NOTE | 2023-08-20 11:36 | RAD_ITS ---
INDICATION: fall EXAMINATION/TECHNIQUE: X-RAY - XR Hip Unilateral with Pelvis when performed; 2-3 Views COMPARISON: No relevant prior comparison study available FINDINGS: PELVIC BONES: No displaced fracture, destructive or sclerotic lesions. Note that overlapping bowel shadows may however obscure fine detail. Sacroiliac joints are unremarkable. No widening of the pubic symphysis. HIPS: Probable impacted nondisplaced fracture of the right femoral neck. Status post left hip pinning. No evidence of dislocation. SOFT TISSUES: No soft tissue swelling or gas. RAD/HIP, UNI W/ Pelvis 2-3 Views IMPRESSION: Status post left hip pinning. Possible impacted fracture of the right femoral neck. Electronically Signed: Maulik Knowles MD at 12:39 EDT ,
--- NOTE | 2023-08-20 11:41 | EX.ED.DYSGE1 ---
HPI History of Present Illness Chief Complaint: Shortness of Breath Detail of Chief Complaint: Fall, right hip pain Informant: patient Narrative Narrative: Patient presents after a fall at home. He fell at [facility] in June and fractured his left hip. He required hospitalization at that time for pinning of his left hip. Patient states he had been off of his crutches and down to a cane, doing quite well. This morning he fell and injured his right hip. He presents with crutches to help him ambulate. He was noted to be hypoxic at 83% on room air in triage. According to our records patient had been on home oxygen in the past. He states he is no longer on home oxygen. He does not particularly feel short of breath. [facility] Medical History Acute HFrEF (heart failure with reduced ejection fraction) Ischemic cardiomyopathy Elevated troponin Former smoker Chronic renal failure, stage 4 (severe) Wears dentures Cancer Skin tear High cholesterol Back pain History of GI bleed History of IBS Gastric reflux CPAP (continuous positive airway pressure) dependence On home oxygen therapy Shortness of breath on exertion Hypertension DM type 2 causing CKD stage 4 Depression Anxiety Myocardial infarct Sleep apnea COPD (chronic obstructive pulmonary disease) NSVT (nonsustained ventricular tachycardia) Atherosclerosis of coronary artery of [place] heart without angina pectoris Hyperlipidemia NSTEMI (non-ST elevated myocardial infarction) (07/2018) Hyponatremia Metabolic acidosis C. difficile colitis Septic shock Uremia of renal origin Infectious encephalopathy Cholelithiasis Hyperkalemia, diminished renal excretion Pseudomembranous enterocolitis Severe sepsis Hypotension, unspecified Hemorrhoids Colon cancer Stage 3 severe COPD by GOLD classification Peripheral vascular disease Anemia of chronic renal failure Radiculopathy affecting upper extremity NSAID long-term use Heme + stool Iron deficiency anemia Urinary retention due to benign prostatic hyperplasia Increased PTH level Low vitamin D level Paroxysmal atrial fibrillation Nocturnal hypoxia Noncompliance with CPAP treatment LADARIUS (obstructive sleep apnea) Acute respiratory failure with hypoxemia Streptococcal pneumonia Gout Non-STEMI (non-ST elevated myocardial infarction) Lower GI bleed Home Medications ?Medication ?Instructions ?Recorded ?Last Taken ?Type oxycodone 5 mg tablet 5 mg PO BID PRN Pain 05/14/17 08/20/23 History finasteride 5 mg tablet 5 mg PO DAILY prostate 09/15/17 08/20/23 History isosorbide mononitrate 30 mg 15 mg PO DAILY heart 09/15/17 08/20/23 History tablet,extended release 24 hr diazepam 5 mg tablet 5 - 10 mg PO BID PRN anxiety 05/12/18 08/20/23 History escitalopram oxalate 20 mg tablet 20 mg PO DAILY depression 09/30/19 08/20/23 History (Lexapro) ipratropium 0.5 mg-albuterol 3 mg 3 ml inhalation Q4H PRN shortness 09/30/19 08/20/23 History (2.5 mg base)/3 mL nebulization of breath or wheezing soln levothyroxine 88 mcg tablet 88 mcg PO DAILY thyroid 12/07/19 08/20/23 History albuterol sulfate 90 mcg/actuation 2 puff inhalation 4X/DAY breathing 04/28/21 08/20/23 History aerosol inhaler cholecalciferol (vitamin D3) 50 2,000 unit PO DAILY vitamin 04/28/21 08/20/23 History mcg (2,000 unit) capsule (Vitamin D3) loperamide 2 mg capsule 2 mg PO Q4H PRN loose stool 04/28/21 04/23/23 History rosuvastatin 10 mg tablet 10 mg PO DAILY cholesterol 04/28/21 08/20/23 History clopidogrel 75 mg tablet 75 mg PO DAILY HEART 04/01/22 08/20/23 History insulin degludec 100 unit/mL (3 20 - 25 unit subcut BID diabetes 04/01/22 08/20/23 History mL) subcutaneous pen (Tresiba FlexTouch U-100 insulin) insulin lispro 100 unit/mL See Rx Instructions .Route 04/01/22 08/20/23 History subcutaneous pen .COMPLEX DM ferrous sulfate 325 mg (65 mg 325 mg PO QODAY supplement #30 tabs 05/03/22 08/20/23 Rx iron) tablet,delayed release guaifenesin 1,200 mg tablet, 1,200 mg PO BID COUGH #60 tabs 09/10/22 08/20/23 Rx extended release 12 hr (Mucus Relief ER) nitroglycerin 0.4 mg sublingual 0.4 mg sublingual Q5M PRN Chest 11/21/22 Unknown Rx tablet Pain #25 tabs fluticasone fur. 200 mcg-umeclid 1 inh inhalation DAILY SHORTNESS 04/07/23 08/20/23 Rx 62.5 mcg-vilant 25 mcg OF BREATH #60 ea inhalat.powder (Trelegy Ellipta) aspirin 81 mg tablet,delayed 81 mg PO DAILY 08/20/23 08/20/23 History release cilostazol 100 mg tablet 100 mg PO BID 08/20/23 08/20/23 History hydralazine 10 mg tablet 10 mg PO TID 08/20/23 08/20/23 History insulin glargine 100 unit/mL (3 20 unit subcut BID 08/20/23 08/20/23 History mL) subcutaneous pen (Lantus Solostar U-100 Insulin) metoprolol succinate 25 mg 25 mg PO DAILY 08/20/23 08/20/23 History tablet,extended release 24 hr midodrine 5 mg tablet 5 mg PO DAILY 08/20/23 08/20/23 History pantoprazole 40 mg tablet,delayed 40 mg PO DAILY GI 08/20/23 08/20/23 History release sennosides 8.6 mg tablet (senna) 17.2 mg PO BID 08/20/23 08/20/23 History sodium chloride 0.65 % nasal spray 2 spray NASAL Q4H PRN Nasal Dryness 08/20/23 08/20/23 History aerosol (Deep Sea Nasal) Allergy/AdvReac Type Severity Reaction Status Date / Time No Known Allergies Allergy Verified 04/23/23 07:06 Family History Father Leukemia Mother COPD (chronic obstructive pulmonary disease) Surgical History S/P arteriovenous (AV) fistula creation History of esophagogastroduodenoscopy (EGD) Hx of craniotomy History of left heart catheterization (02/27/21) Status post insertion of dialysis catheter (07/2018) History of coronary artery stent placement (02/28/21) Status post colon resection H/O colectomy H/O pneumonectomy Social History household members: spouse housing: other details: mobile home current occupational status: disabled pets and animals: Yes pets and animals: dog(s) Smoking Status: Current every day smoker tobacco type: cigarettes Tobacco: How many years used: 40 second hand exposure: No alcohol intake: never substance use type: does not use ROS ROS ED Constitutional Constitutional ED: Denies chills or fever(s) Eyes Eyes: Denies change in vision or discharge from eye(s) ENT ENT ED: Denies discharge from eye(s), rhinorrhea or sore throat Cardiovascular Cardiovascular: Denies chest pain or palpitations Respiratory/Chest Respiratory/Chest: Denies cough or dyspnea Gastrointestinal Gastrointestinal: Denies abdominal pain, nausea or vomiting Genitourinary Genitourinary ED: Denies dysuria Musculoskeletal Musculoskeletal: Reports extremity pain; Denies back pain Integumentary Reports Abrasions; Denies rash Neurologic Neurologic: Denies headache(s) or weakness Psychiatric Psychiatric: Denies anxiety or depression Allergic/Immunologic Allergic/Immunologic ED: Denies lip swelling or urticaria EXAM Physical Exam Const Vital Signs: 08/20/23 11:15 08/20/23 11:44 08/20/23 11:45 Temperature 97.8 F Temperature Source Temporal Pulse Rate 100 Respiratory Rate 18 Respiratory Effort Normal Non-Labored Respiratory Depth Normal Normal Respiratory Pattern Normal Normal Blood Pressure 137/75 H Blood Pressure Mean 95 Pulse Ox 83 95 Oxygen Delivery Method Room Air Nasal Cannula Nasal Cannula Oxygen Flow Rate (L/min) 1 1 08/20/23 11:45 08/20/23 12:15 08/20/23 13:00 Temperature Temperature Source Pulse Rate 97 92 97 Respiratory Rate 19 H 18 19 H Respiratory Effort Respiratory Depth Respiratory Pattern Blood Pressure 134/80 H 128/79 H Blood Pressure Mean 98 95 Pulse Ox 93 92 96 Oxygen Delivery Method Room Air Nasal Cannula Oxygen Flow Rate (L/min) 2 08/20/23 13:00 08/20/23 13:11 08/20/23 14:00 Temperature Temperature Source Pulse Rate 95 98 96 Respiratory Rate 28 H 19 H 21 H Respiratory Effort Respiratory Depth Respiratory Pattern Blood Pressure 151/85 H 138/86 H Blood Pressure Mean 104 102 Pulse Ox 96 96 94 Oxygen Delivery Method Oxygen Flow Rate (L/min) 2 08/20/23 15:00 Temperature Temperature Source Pulse Rate 93 Respiratory Rate 23 H Respiratory Effort Respiratory Depth Respiratory Pattern Blood Pressure 134/78 H Blood Pressure Mean 96 Pulse Ox 88 Oxygen Delivery Method Oxygen Flow Rate (L/min) Positive well nourished and well developed General Appearance ED: well developed HEENT Reports moist mucous membranes Eyes EOMs intact bilaterally Chest Wall inspection of chest normal and palpation of chest normal Resp normal respiratory effort Resp Narrative: Diminished breath sounds bilateral bases. No appreciable wheezes at this time. Cardio regular rate and regular rhythm GI non-tender Palpation: soft Extremity Extremity Narrative: Tenderness to palpation over the right hip and proximal right femur. Patient does have pain with logroll of the right hip. Leg lengths are equal. No pain with logroll of the left hip. Small skin tear noted to the extensor surface of the right elbow. Full range of motion with no bony tenderness. Neuro oriented x3 and no sensory deficits noted Psych mental status grossly normal Skin Skin Narrative: Skin tear right elbow as noted above. MDM MDM MDM Narrative Medical decision making narrative: Patient placed on crate tier. IV line initiated. Labwork obtained to evaluate for leukocytosis, anemia, and electrolyte derangement. X-rays of the chest, pelvis and left hip, and right femur obtained to evaluate for fracture, infiltrate. History & Record Review Discussion w/independent historian: Patient Additional record(s) reviewed:: Prior inpatient record and Prior labs Lab Data Attestation: I reviewed the patient's lab results. Labs: Laboratory Results - last 24 hr 08/20/23 12:00 WBC 9.5 RBC 4.34 L Hgb 12.3 L Hct 39.6 L MCV 91.2 MCH 28.3 MCHC 31.1 L RDW Std Deviation 64.0 H RDW Coeff of Joana 19.2 H Plt Count 270 MPV 12.3 H Immature Gran % (Auto) 1.500 H Neut % (Auto) 79.4 H Lymph % (Auto) 12.5 L [place] % (Auto) 4.9 Eos % (Auto) 1.4 Baso % (Auto) 0.3 Absolute Neuts (auto) 7.5 Absolute Lymphs (auto) 1.18 Nucleated RBC % 0 Sodium 140 Potassium 3.8 Chloride 101 Carbon Dioxide 32.0 Anion Gap 7 BUN 22 H Creatinine 2.40 H Estim Creat Clear Calc 30.42 Est GFR (MDRD) Af Amer 35 L Est GFR (MDRD) Non-Af 29 L BUN/Creatinine Ratio 9.2 L Glucose 107 H Calcium 9.4 Radiography Chest X-Ray - ED: 1 View, Read by ED Physician and Chronic Changes Diagnostic Testing: Clinical Impression(s) from Imaging Studies Femur X-Ray 08/20/23 11:36 IMPRESSION: Probable impacted fracture of the right femoral neck. CT scan of the pelvis might be of value. Electronically Signed: Maulik Knowles MD at 12:38 EDT , Hip/Pelvis X-Ray 08/20/23 11:36 IMPRESSION: Status post left hip pinning. Possible impacted fracture of the right femoral neck. Electronically Signed: Maulik Knowles MD at 12:39 EDT Reading Location ID and State: [facility] / [place] Tel , Service support , Chest X-Ray 08/20/23 12:10 IMPRESSION: 1. Right upper lobe opacity with loss of volume likely chronic. 2. Blunting of the costophrenic angles could be due to small pleural effusions or pleural thickening. 3. Otherwise no focal infiltrate is seen. Electronically Signed: Maulik Knowles MD at 12:31 EDT Reading Location ID and State: [facility] / [place] Tel , Service support , Lower Extremity CT 08/20/23 13:04 IMPRESSION: Impacted nondisplaced fracture of the right femoral neck. Electronically Signed: Maulik Knowles MD at 13:44 EDT , Treatment and Re-Evaluation :: CBC was a white count 9.5 with a hemoglobin of 12.3. Chemistry studies reveal a BUN of 22 and a creatinine of 2.40. Patient is on dialysis Friday, Friday, and Friday and did have his full run this morning. Glucose is 107. Portable chest x-ray per my interpretation reveals chronic changes. No obvious infiltrate. Radiology interpretation reviewed and agrees. Right femur x-ray along with pelvis and left hip x-rays are reviewed. Screws are in place to the left hip. He does appear to have a subtle right hip fracture. Radiology interpretation is reviewed. They do recommend CT scan to confirm right hip fracture. CT scan is performed and reveals impacted nondisplaced fracture of the right femoral neck. Test results discussed with the patient. Nursing staff notes that when he falls asleep his oxygen level will drop and he is currently on 2 L nasal cannula. He is resting comfortable on this. Patient would prefer to stay here for his orthopedic surgery. I will speak with Dr. Rose, on-call for no doc as patient has not seen any local orthopedics. He is established with cardiology and nephrology here locally. I will also speak with hospitalist. Discharge Plan Dx/Rx/DC Orders Clinical Impression: Fall, Fracture of hip, right, closed, Chronic renal failure Disposition Disposition: Acute Care Hospital [facility]
--- NOTE | 2023-08-20 12:10 | RAD_ITS ---
INDICATION: sob EXAMINATION/TECHNIQUE: X-RAY - XR Chest 1 View COMPARISON: Prior study dated: 04/29/2022 FINDINGS: LINES/DEVICES: None. LUNGS: Opacities in the right upper lobe with loss of volume unchanged prior exam appears to be chronic. Improved bilateral lower lungs infiltrates. Continued blunting of the costophrenic angles bilaterally. MEDIASTINUM AND CARDIOVASCULAR STRUCTURES: Mild enlargement of the cardiac silhouette. BONES AND SOFT TISSUES: Stable soft tissues and osseous structures. RAD/Chest 1 View (Portable) IMPRESSION: 1. Right upper lobe opacity with loss of volume likely chronic. 2. Blunting of the costophrenic angles could be due to small pleural effusions or pleural thickening. 3. Otherwise no focal infiltrate is seen. Electronically Signed: Maulik Knowles MD at 12:31 EDT ,
[2023-08-20 12:20] LABS: Anion Gap 7 (5-15); BUN 22 mg/dL (7-18); BUN/Creat Ratio 9.2 RATIO (10-20); Calcium,Total 9.4 mg/dL (8.5-10.1); Chloride 101 mmol/L (98-107); EST Glomerular Filtration Rate 29 mL/min (>60); Est Glom Filt Rate - Afr Amer 35 mL/min (>60); Estimated Creatinine Clearance 30.42 ml/min; Glucose 107 mg/dL (74-106); Potassium 3.8 mmol/L (3.5-5.1); Sodium Level 140 mmol/L (136-145)
[2023-08-20 12:22] LABS: Absolute Lymphocyte Count 1.18 X10^3/uL (0.83-4.51); Absolute Neutrophil Count 7.5 X10^3/uL (2.0-7.7); Basophil# 0.03 X10^3/uL; Basophil% 0.3 % (0-1); Eosinophil# 0.13 X10^3/uL; Eosinophils% 1.4 % (0-5); Hematocrit 39.6 % (40-54); Hemoglobin 12.3 g/dL (13.0-16.5); Lymphocyte # 1.18 X10^3/ul (0.83-4.51); Lymphocyte % 12.5 % (19-41); Mean Corp Hgb Conc 31.1 g/dL (32-36); Mean Corpuscular Hgb 28.3 pg (27.0-32.0); Mean Corpuscular Volume 91.2 fL (80-94); Mean Platelet Vol. 12.3 fl (6.2-12.0); Monocyte# 0.46 X10^3/uL; Monocyte% 4.9 % (0-10); NRBC Flagged by Analyzer 0 % (0-5); Neutrophil # 7.51 X10^3/uL (2.7-7.7); Neutrophil % 79.4 % (47-70); Platelet Count 270 K/mm3 (150-450); RBC Distribution Width CV 19.2 % (11.6-14.6); Red Blood Count 4.34 M/mm3 (4.6-6.2); White Blood Count 9.5 K/mm3 (4.4-11.0)
--- NOTE | 2023-08-20 13:04 | CT_ITS ---
CT RIGHT LOWER EXTREMITY WITH 3-D IMAGING CLINICAL INDICATION: fall -- see x-ray report TECHNIQUE: Axial CT images of the RIGHT lower extremity was performed without IV contrast material. Coronal and sagittal reformats were provided. The protocol utilizes one or more of the following dose reduction techniques: automated exposure control, adjustment of mA and/or kV according to patient size,and/or use of iterative reconstruction technique. RADIATION DOSAGE (If Supplied By Facility): CTDIvol = ( 14.05 ) mGy, DLP = ( 445.45 ) mGycm COMPARISON: Radiographs of the pelvis and hips of the same day. FINDINGS: Bones: Impacted nondisplaced fracture of the right femoral neck. The remainder of the osseous structures are intact. The hip joint is within normal limits. No evidence of dislocation. Soft Tissues: Soft tissue swelling laterally. Vascular calcifications. CT/Extremity Lower without Contra IMPRESSION: Impacted nondisplaced fracture of the right femoral neck. Electronically Signed: Maulik Knowles MD at 13:44 EDT ,
--- NOTE | 2023-08-20 15:33 | HP.PCM.HOS_ITS ---
HPI - General General Date of Admission: 08/20/23 Date of Service: 08/20/23 Chief Complaint: shortness of breath, right hip pain HPI Narrative BARI KELLY, is a 67 M with a PMH as outlined who presents via the ED On 08/20/2023 with a complaint of mechanical fall and shortness of breath. He fell adn fractured his left hip in June; he had pinning of his left hip done. He was discharged home and had been ambulating with a walker. During that admission at [facility], he had COPD exacerbation but was discharged home on room air. He also had an echo done there which shwoed EF of 25%. While using his walker today he fell and landed on his right hip. He had intractable pain and so he decided to come into the ED. On admission in the ED, he was noted to be hypoxic with his saturation down to 83% on room air. He however denied feeling short of breath. He is on dialysis and says he had a full session of dialysis today. He denied any chest pain, palpitations, dizziness, nausea vomiting or any other symptoms. Review of systems otherwise negative. Vitals in the ED showed blood pressure of 131/72, pulse rate of 96, respiratory 8 of 21 and temperature of 98 Fahrenheit. He was saturating at 92% on 2 L of oxygen. CBC showed hemoglobin of 12.3 with WBC of 9.5 and platelets of 270. Chemistry showed sodium of 140 with potassium of 3.8 and creatinine of 2.4. Right lower extremity CT showed impacted nondisplaced fracture of the right femoral neck and chest x-ray showed right upper lobe opacity with loss of volume likely chronic and blunting of the costophrenic angles likely due to small pleural effusions or pleural thickening. He has been admitted to be managed for debility due to right nondisplaced femoral neck fracture and hypoxia with concern for fluid overload from ESRD versus CHF exacerbation. FOR[facility]LY [facility] Medical History Acute HFrEF (heart failure with reduced ejection fraction) Ischemic cardiomyopathy Elevated troponin Former smoker Chronic renal failure, stage 4 (severe) Wears dentures Cancer Skin tear High cholesterol Back pain History of GI bleed History of IBS Gastric reflux CPAP (continuous positive airway pressure) dependence On home oxygen therapy Shortness of breath on exertion Hypertension DM type 2 causing CKD stage 4 Depression Anxiety Myocardial infarct Sleep apnea COPD (chronic obstructive pulmonary disease) NSVT (nonsustained ventricular tachycardia) Atherosclerosis of coronary artery of [place] heart without angina pectoris Hyperlipidemia NSTEMI (non-ST elevated myocardial infarction) (07/2018) Hyponatremia Metabolic acidosis C. difficile colitis Septic shock Uremia of renal origin Infectious encephalopathy Cholelithiasis Hyperkalemia, diminished renal excretion Pseudomembranous enterocolitis Severe sepsis Hypotension, unspecified Hemorrhoids Colon cancer Stage 3 severe COPD by GOLD classification Peripheral vascular disease Anemia of chronic renal failure Radiculopathy affecting upper extremity NSAID long-term use Heme + stool Iron deficiency anemia Urinary retention due to benign prostatic hyperplasia Increased PTH level Low vitamin D level Paroxysmal atrial fibrillation Nocturnal hypoxia Noncompliance with CPAP treatment LADARIUS (obstructive sleep apnea) Acute respiratory failure with hypoxemia Streptococcal pneumonia Gout Non-STEMI (non-ST elevated myocardial infarction) Lower GI bleed Home Medications ?Medication ?Instructions ?Recorded ?Last Taken ?Type oxycodone 5 mg tablet 5 mg PO BID PRN Pain 05/14/17 08/20/23 History finasteride 5 mg tablet 5 mg PO DAILY prostate 09/15/17 08/20/23 History isosorbide mononitrate 30 mg 15 mg PO DAILY heart 09/15/17 08/20/23 History tablet,extended release 24 hr diazepam 5 mg tablet 5 - 10 mg PO BID PRN anxiety 05/12/18 08/20/23 History escitalopram oxalate 20 mg tablet 20 mg PO DAILY depression 09/30/19 08/20/23 History (Lexapro) ipratropium 0.5 mg-albuterol 3 mg 3 ml inhalation Q4H PRN shortness 09/30/19 08/20/23 History (2.5 mg base)/3 mL nebulization of breath or wheezing soln levothyroxine 88 mcg tablet 88 mcg PO DAILY thyroid 12/07/19 08/20/23 History albuterol sulfate 90 mcg/actuation 2 puff inhalation 4X/DAY breathing 04/28/21 08/20/23 History aerosol inhaler cholecalciferol (vitamin D3) 50 2,000 unit PO DAILY vitamin 04/28/21 08/20/23 History mcg (2,000 unit) capsule (Vitamin D3) loperamide 2 mg capsule 2 mg PO Q4H PRN loose stool 04/28/21 04/23/23 History rosuvastatin 10 mg tablet 10 mg PO DAILY cholesterol 04/28/21 08/20/23 History clopidogrel 75 mg tablet 75 mg PO DAILY HEART 04/01/22 08/20/23 History insulin degludec 100 unit/mL (3 20 - 25 unit subcut BID diabetes 04/01/22 08/20/23 History mL) subcutaneous pen (Tresiba FlexTouch U-100 insulin) insulin lispro 100 unit/mL See Rx Instructions .Route 04/01/22 08/20/23 History subcutaneous pen .COMPLEX DM ferrous sulfate 325 mg (65 mg 325 mg PO QODAY supplement #30 tabs 05/03/22 08/20/23 Rx iron) tablet,delayed release guaifenesin 1,200 mg tablet, 1,200 mg PO BID COUGH #60 tabs 09/10/22 08/20/23 Rx extended release 12 hr (Mucus Relief ER) nitroglycerin 0.4 mg sublingual 0.4 mg sublingual Q5M PRN Chest 11/21/22 Unknown Rx tablet Pain #25 tabs fluticasone fur. 200 mcg-umeclid 1 inh inhalation DAILY SHORTNESS 04/07/23 08/20/23 Rx 62.5 mcg-vilant 25 mcg OF BREATH #60 ea inhalat.powder (Trelegy Ellipta) aspirin 81 mg tablet,delayed 81 mg PO DAILY 08/20/23 08/20/23 History release cilostazol 100 mg tablet 100 mg PO BID 08/20/23 08/20/23 History hydralazine 10 mg tablet 10 mg PO TID 08/20/23 08/20/23 History insulin glargine 100 unit/mL (3 20 unit subcut BID 08/20/23 08/20/23 History mL) subcutaneous pen (Lantus Solostar U-100 Insulin) metoprolol succinate 25 mg 25 mg PO DAILY 08/20/23 08/20/23 History tablet,extended release 24 hr midodrine 5 mg tablet 5 mg PO DAILY 08/20/23 08/20/23 History pantoprazole 40 mg tablet,delayed 40 mg PO DAILY GI 08/20/23 08/20/23 History release sennosides 8.6 mg tablet (senna) 17.2 mg PO BID 08/20/23 08/20/23 History sodium chloride 0.65 % nasal spray 2 spray NASAL Q4H PRN Nasal Dryness 08/20/23 08/20/23 History aerosol (Deep Sea Nasal) Allergy/AdvReac Type Severity Reaction Status Date / Time No Known Allergies Allergy Verified 04/23/23 07:06 Family History Father Leukemia Mother COPD (chronic obstructive pulmonary disease) Surgical History S/P arteriovenous (AV) fistula creation History of esophagogastroduodenoscopy (EGD) Hx of craniotomy History of left heart catheterization (02/27/21) Status post insertion of dialysis catheter (07/2018) History of coronary artery stent placement (02/28/21) Status post colon resection H/O colectomy H/O pneumonectomy Social History household members: spouse housing: other details: mobile home current occupational status: disabled pets and animals: Yes pets and animals: dog(s) Smoking Status: Current every day smoker tobacco type: cigarettes Tobacco: How many years used: 40 second hand exposure: No alcohol intake: never substance use type: does not use ROS Constitutional Constitutional: Reports weakness; Denies anorexia, chills, fatigue, fever(s) or malaise Eyes Eyes: Denies change in vision ENT HEENT: Denies dysphagia or headache(s) Cardiovascular Cardiovascular: Denies chest pain, dyspnea on exertion, edema, lightheadedness, orthopnea, palpitations, paroxysmal nocturnal dyspnea, rapid heart rate or syncope Respiratory/Chest Respiratory/Chest: Denies cough, dyspnea, productive cough, shortness of breath at rest or shortness of breath with exertion Gastrointestinal Gastrointestinal: Denies abdominal pain, constipation, nausea or vomiting Genitourinary Genitourinary: Denies burning urination or dysuria Musculoskeletal Musculoskeletal: Reports joint pain; Denies arthralgias Neurologic Neurologic: Denies confusion, disequilibrium, dizziness, focal weakness, headache(s), numbness, paresthesias, seizure-like activity, seizures or syncope Psychiatric Psychiatric: Denies anxiety or depression Endocrine Endocrinology: Denies change in body appearance Hematologic/Lymphatic Hematologic/Lymphatic: Denies anemia Vital Signs Vital Signs Vital Signs: 08/20/23 11:15 08/20/23 11:44 08/20/23 11:45 Temperature 97.8 F Temperature Source Temporal Pulse Rate 100 Respiratory Rate 18 Respiratory Effort Normal Non-Labored Respiratory Depth Normal Normal Respiratory Pattern Normal Normal Blood Pressure 137/75 H Blood Pressure Mean 95 Pulse Ox 83 95 Oxygen Delivery Method Room Air Nasal Cannula Nasal Cannula Oxygen Flow Rate (L/min) 1 1 08/20/23 11:45 08/20/23 12:15 08/20/23 13:00 Temperature Temperature Source Pulse Rate 97 92 97 Respiratory Rate 19 H 18 19 H Respiratory Effort Respiratory Depth Respiratory Pattern Blood Pressure 134/80 H 128/79 H Blood Pressure Mean 98 95 Pulse Ox 93 92 96 Oxygen Delivery Method Room Air Nasal Cannula Oxygen Flow Rate (L/min) 2 08/20/23 13:00 08/20/23 13:11 08/20/23 14:00 Temperature Temperature Source Pulse Rate 95 98 96 Respiratory Rate 28 H 19 H 21 H Respiratory Effort Respiratory Depth Respiratory Pattern Blood Pressure 151/85 H 138/86 H Blood Pressure Mean 104 102 Pulse Ox 96 96 94 Oxygen Delivery Method Oxygen Flow Rate (L/min) 2 08/20/23 15:00 08/20/23 15:13 Temperature 98 F Temperature Source Pulse Rate 93 96 Respiratory Rate 23 H 21 H Respiratory Effort Respiratory Depth Respiratory Pattern Blood Pressure 134/78 H 131/72 H Blood Pressure Mean 96 91 Pulse Ox 88 92 Oxygen Delivery Method Oxygen Flow Rate (L/min) Weight Weight: 161 lb 2.526 oz Body Mass Index (BMI) 22.5 Physical Exam Const alert, oriented x3 and no apparent distress General Appearance: cooperative HEENT normocephalic, head/scalp atraumatic, hearing grossly normal bilaterally, moist oral mucous membranes and oropharynx normal Mouth: oral and palatal mucosa normal Eyes PERRL, EOMs intact bilaterally and conjunctivae normal Neck no lymphadenopathy and supple Resp Resp Narrative: mildly diminished breath sounds bibasally, mild wheezes, no crackles. On 2L of oxygen. Cardio regular rate, regular rhythm, S1 normal heart sound, S2 normal heart sound and no murmurs GI normal to inspection, nondistended, normoactive bowel sounds, soft to palpation, non-tender and non-distended Extremity Extremity Narrative: RLE slightly shortened, no external rotation. Neuro oriented x3 and CN's II-XII intact bilaterally Sensorium / Orientation: awake and alert Speech: speech normal Psych affect normal Results Lab / Micro Data 08/20/23 12:00 08/20/23 12:00 Labs: Laboratory Results - last 24 hr 08/20/23 12:00: WBC 9.5, RBC 4.34 L, Hgb 12.3 L, Hct 39.6 L, MCV 91.2, MCH 28.3, MCHC 31.1 L, RDW Std Deviation 64.0 H, RDW Coeff of Joana 19.2 H, Plt Count 270, M PV 12.3 H, Immature Gran % (Auto) 1.500 H, Neut % (Auto) 79.4 H, Lymph % (Auto) 12.5 L, [place] % (Auto) 4.9, Eos % (Auto) 1.4, Baso % (Auto) 0.3, Absolute Neuts (auto) 7.5, Absolute Lymphs (auto) 1.18, Nucleated RBC % 0, Sodium 140, Potassium 3.8, Chloride 101, Carbon Dioxide 32.0, Anion Gap 7, BUN 22 H, C reatinine 2.40 H, Estim Creat Clear Calc 30.42, Est GFR (MDRD) Af Amer 35 L, Est GFR (MDRD) Non-Af 29 L, BUN/Creatinine Ratio 9.2 L, Glucose 107 H, Calcium 9.4 Imaging Radiology Impression Femur X-Ray 08/20/23 11:36 IMPRESSION: Probable impacted fracture of the right femoral neck. CT scan of the pelvis might be of value. Electronically Signed: Maulik Knowles MD at 12:38 EDT Reading Location ID and State: [facility] / [place] Tel , Service support , Hip/Pelvis X-Ray 08/20/23 11:36 IMPRESSION: Status post left hip pinning. Possible impacted fracture of the right femoral neck. Electronically Signed: Maulik Knowles MD at 12:39 EDT Reading Location ID and State: [facility] / [place] Tel , Service support , Chest X-Ray 08/20/23 12:10 IMPRESSION: 1. Right upper lobe opacity with loss of volume likely chronic. 2. Blunting of the costophrenic angles could be due to small pleural effusions or pleural thickening. 3. Otherwise no focal infiltrate is seen. Electronically Signed: Maulik Knowles MD at 12:31 EDT , Lower Extremity CT 08/20/23 13:04 IMPRESSION: Impacted nondisplaced fracture of the right femoral neck. Electronically Signed: Maulik Knowles MD at 13:44 EDT , Assessment & Plan Assessment/Plan (1) Fracture of hip, right, closed: (2) Fall: PLAN: Plan #RLE hip fracture due to mechanical fall * admit to PCU due to hypoxia * had mechanical fall and imaging done showed imacted nondisplaced fracture of the right femoral neck. * consult orthopedics * PO tylenol, PO oxycodone and IV morphine prn for pain * fall precautions * NSQIP:patient is at increased risk of serious complication, any complications and cardiac complication. Consult cardiology for cardiac clearance. * will request 2D echo records from [facility] as he had his left hip surgery done there in June 2023, and had an echo done. * #Hypoxia due to probable HFrEF exacerbation and COPD exacerbation * Was hypoxic down to the 80s. Used to be on oxygen but currently not on oxygen. * Also has a history of COPD. Chest x-ray showed bilateral small pleural effusions. Check BNP. * Diuresed with IV Lasix. He says he still makes urine. * will request cardiology consult for cardiac clearance due to him being hypoxic to 83% on arrival in the ED, and is high risk of cardiac medications per NSQIP. * #ESRD * on hemodialysis. * Consult nephrology * says he had a full session of dialysis today. * #Acute COPD exacerbation: * start on IV solumedrol. Breathing treatment with bronchodilators * titrate oxygen to maintain sats >90% #History of ischemic cardiomyopathy: * on aspirin and plavix as well as statin. On imdur. * 2D echo from April 2022 showed EF of 50% with mild apical and mid anterior hypokinesis, with pulmonary artery systolic pressure of 47mmhg. * Cardiac cath in April 2021 which showed CAD with occluded first obtuse marginal branch and gross filling of the distal vessel with previously stented left anterior descending artery which was patent with mild to moderate in- stent stenosis and previously stented left circumflex artery which is a dominant vessel with mild in-stent stenosis. # type 2 diabetes mellitus, on Lantus 20 units twice daily. Insulin sliding scale. Checks ACHS. #Hypothyroidism: On Synthroid # Hypertension: On metoprolol DVT prophylaxis; heparin. Code status: * full code * Patient counseled extensively about different types of CODE STATUS including full code, DNR CCA and DNR CCA. Patient elects to be full code. * Total [id number] time 17 minutes. Charges/Coding Visit Charges Inpatient E&M: 90907 Init Hosp L3 Procedures Hospitalists Procedures: 21435 Advncd Care Plan 30 Min
--- NOTE | 2023-08-20 15:42 | NURSING ---
MED SURG KORAM RT HIP FX
[2023-08-20] MEDS: Ipratropium/Albuterol Sulfate 3 ML AMPUL.NEB INHALATION (19:40)
[2023-08-20] MEDS: hydrALAZINE 10 MG Tablet PO (22:57)
[2023-08-20] MEDS: Cilostazol 50 MG Tablet 100 MG PO (22:58)
[2023-08-20] MEDS: Furosemide 40 MG/4 ML Vial IV (22:58)
[2023-08-20] MEDS: Senna Tablet 2 TABLET PO (22:58)
[2023-08-20] MEDS: Atorvastatin Calcium 20 MG Tablet PO (22:58)
[2023-08-20] MEDS: guaiFENesin 1,200 MG Tablet 1200 MG PO (22:58)
[2023-08-20] MEDS: 0.9% Saline Lock 10 ML Syringe IV (23:01)
[2023-08-20] MEDS: Insulin Glargine-YFGN 100 UNIT/ML Pen 20 UNIT SC (23:06)
[2023-08-20] MEDS: Insulin Lispro 100 UNIT/ML INSULN.PEN SC (23:06)
[2023-08-20 23:38] LABS: Bedside Glucose 180 mg/dL (74-106)
[2023-08-21] VITALS (14 sets, daily range): BP systolic 94–123; BP diastolic 57–79; PULSE 67–101; RESP 16–20; TEMP 36.1–36.6; O2SAT 82–98; BMI 24.0
[2023-08-21] MEDS: oxyCODONE 5 MG Tablet PO (05:11)
[2023-08-21 06:27] LABS: Absolute Neutrophil Count 7.1 X10^3/uL (2.0-7.7); Basophil# 0.02 X10^3/uL; Basophil% 0.3 % (0-1); Hematocrit 40.4 % (40-54); Hemoglobin 12.4 g/dL (13.0-16.5); Lymphocyte % 7.6 % (19-41); Mean Corp Hgb Conc 30.7 g/dL (32-36); Mean Corpuscular Hgb 28.7 pg (27.0-32.0); Mean Corpuscular Volume 93.5 fL (80-94); Mean Platelet Vol. 12.5 fl (6.2-12.0); Monocyte# 0.15 X10^3/uL; Monocyte% 1.9 % (0-10); NRBC Flagged by Analyzer 0 % (0-5); Neutrophil # 7.05 X10^3/uL (2.7-7.7); Neutrophil % 89.3 % (47-70); POSITIVE DIFFERENTIAL YES; Platelet Count 221 K/mm3 (150-450); RBC Distribution Width CV 18.8 % (11.6-14.6); Red Blood Count 4.32 M/mm3 (4.6-6.2); White Blood Count 7.9 K/mm3 (4.4-11.0)
[2023-08-21] MEDS: hydrALAZINE 10 MG Tablet PO ×2 (06:36→21:28)
[2023-08-21] MEDS: Levothyroxine 88 MCG Tablet PO (06:37)
[2023-08-21] MEDS: Insulin Lispro 100 UNIT/ML INSULN.PEN SC ×2 (06:37→21:28)
[2023-08-21] MEDS: 0.9% Saline Lock 10 ML Syringe IV ×3 (06:39→17:15)
[2023-08-21 06:53] LABS: Anion Gap 8 (5-15); BUN 39 mg/dL (7-18); BUN/Creat Ratio 10.4 RATIO (10-20); Calcium,Total 9.3 mg/dL (8.5-10.1); Chloride 101 mmol/L (98-107); Creatinine, Serum 3.75 mg/dL (0.70-1.30); EST Glomerular Filtration Rate 17 mL/min (>60); Est Glom Filt Rate - Afr Amer 21 mL/min (>60); Estimated Creatinine Clearance 20.08 ml/min; Glucose 176 mg/dL (74-106); Sodium Level 139 mmol/L (136-145)
[2023-08-21 07:15] LABS: Bedside Glucose 160 mg/dL (74-106)
[2023-08-21] MEDS: Ipratropium/Albuterol Sulfate 3 ML AMPUL.NEB INHALATION ×3 (07:30→19:26)
--- NOTE | 2023-08-21 07:54 | PN.HOSP_ITS ---
Reason for Visit Reason for Visit: Diagnoses Fracture of unspecified part of neck of right femur, initial encounter for closed fracture (08/20/23) Unspecified fall, initial encounter (08/20/23) Subjective Subjective Feels well. No complaints. Objective Data Objective Data Vital Signs: Vital Signs Temp Pulse Resp BP Pulse Ox O2 Del Method O2 Flow Rate 36.6 C 78 18 114/73 98 Nasal Cannula 2 08/21/23 06:30 08/21/23 06:36 08/21/23 06:30 08/21/23 06:36 08/21/23 06:30 08/21/23 06:30 08/21/23 06:30 Oxygen Flow Rate (L/min) 2 Oxygen Delivery Method Nasal Cannula Weight: 78 kg Body Mass Index (BMI) 24.0 Intake & Output: Intake and Output for Last 24 Hours 08/19/23 08/20/23 08/21/23 23:59 23:59 23:59 Intake Total 390 / 390 Balance 390 / 390 Lab / Micro Data 08/21/23 05:19 08/21/23 05:19 Labs: Laboratory Results - last 24 hr 08/20/23 12:00: WBC 9.5, RBC 4.34 L, Hgb 12.3 L, Hct 39.6 L, MCV 91.2, MCH 28.3, MCHC 31.1 L, RDW Std Deviation 64.0 H, RDW Coeff of Joana 19.2 H, Plt Count 270, M PV 12.3 H, Immature Gran % (Auto) 1.500 H, Neut % (Auto) 79.4 H, Lymph % (Auto) 12.5 L, [place] % (Auto) 4.9, Eos % (Auto) 1.4, Baso % (Auto) 0.3, Absolute Neuts (auto) 7.5, Absolute Lymphs (auto) 1.18, Nucleated RBC % 0, Sodium 140, Potassium 3.8, Chloride 101, Carbon Dioxide 32.0, Anion Gap 7, BUN 22 H, C reatinine 2.40 H, Estim Creat Clear Calc 30.42, Est GFR (MDRD) Af Amer 35 L, Est GFR (MDRD) Non-Af 29 L, BUN/Creatinine Ratio 9.2 L, Glucose 107 H, Calcium 9.4 08/20/23 22:52: POC Glucose 180 H 08/21/23 05:19: WBC 7.9, RBC 4.32 L, Hgb 12.4 L, Hct 40.4, MCV 93.5, MCH 28.7, M CHC 30.7 L, RDW Std Deviation 65.0 H, RDW Coeff of Joana 18.8 H, Plt Count 221, M PV 12.5 H, Immature Gran % (Auto) 0.900, Neut % (Auto) 89.3 H, Lymph % (Auto) 7.6 L, [place] % (Auto) 1.9, Eos % (Auto) 0.0, Baso % (Auto) 0.3, Absolute Neuts (auto) 7.1, Absolute Lymphs (auto) 0.60 L, Nucleated RBC % 0, Sodium 139, Potassium 4.0, Chloride 101, Carbon Dioxide 30.0, Anion Gap 8, BUN 39 H, C reatinine 3.75 H, Estim Creat Clear Calc 20.08, Est GFR (MDRD) Af Amer 21 L, Est GFR (MDRD) Non-Af 17 L, BUN/Creatinine Ratio 10.4, Glucose 176 H, Calcium 9.3 08/21/23 06:34: POC Glucose 160 H Radiography Diagnostic Testing: Radiology Impression Femur X-Ray 08/20/23 11:36 IMPRESSION: Probable impacted fracture of the right femoral neck. CT scan of the pelvis might be of value. Electronically Signed: Maulik Knowles MD at 12:38 EDT Reading Location ID and State: [facility] / [place] Tel , Service support , Hip/Pelvis X-Ray 08/20/23 11:36 IMPRESSION: Status post left hip pinning. Possible impacted fracture of the right femoral neck. Electronically Signed: Maulik Knowles MD at 12:39 EDT , Chest X-Ray 08/20/23 12:10 IMPRESSION: 1. Right upper lobe opacity with loss of volume likely chronic. 2. Blunting of the costophrenic angles could be due to small pleural effusions or pleural thickening. 3. Otherwise no focal infiltrate is seen. Electronically Signed: Maulik Knowles MD at 12:31 EDT , Lower Extremity CT 08/20/23 13:04 IMPRESSION: Impacted nondisplaced fracture of the right femoral neck. Electronically Signed: Maulik Knowles MD at 13:44 EDT , Physical Exam Const alert and no apparent distress HEENT head/scalp atraumatic and moist oral mucous membranes Resp normal respiratory effort, no retractions, no use of accessory muscles and clear to auscultation bilaterally Cardio regular rate, regular rhythm, S1 normal heart sound and S2 normal heart sound GI normal to inspection, nondistended, normoactive bowel sounds, soft to palpation, non-tender and non-distended Neuro Sensorium / Orientation: awake and alert Assessment & Plan Assessment/Plan (1) Fracture of hip, right, closed: (2) Fall: PLAN: Plan Right impacted femoral neck fracture * s/p fall * ortho consult. Cardiology consult for cardiac clearance. [facility] records requested. * check 25-OH d level. Acute HFrEF * EF 50% from echo on 04/29/2022. Now 25%. Further recommendations per cardiology. * Pt still produces urine despite being on HD. Started on IV furosemide * [facility] records requested which may include an echo report. * No ACEi/ARB given ESRD ESRD * on HD despite producing urine * nephrology consulted Possible AECOPD: * on methylpred and BDs * Wean oxygen as tolerated. DM2 * insulin-dependent * glargine 20 BID and SSI. CAD: * [facility] on 05/02/22: CAD with occluded first obtuse marginal branch with ghost filling of the distal vessel. Previously stented left anterior descending artery which is patent with mild to moderate in-stent stenosis. Previously stented left circumflex artery which is dominant vessel with mid in-stent stenosis. And later down in the angiography was noted nondominant RCA with 90% mid stenosis. Plan was for medical management at that time. * On aspirin, clopidogrel, atorvastatin. Will place the aspirin and clopidogrel on hold for now for surgery Chronic conditions: * Hypothyroidism: levothyroxine * Hypertension: On metoprolol succinate DVT prophylaxis: SCDs Code status: full code Charges/Coding Visit Charges Inpatient E&M: 98751 Subs Hosp L2
--- NOTE | 2023-08-21 08:03 | PCM.CONS.C ---
Assessment & Plan Assessment/Plan (1) Preop cardiovascular exam: PLAN: In terms of his preoperative cardiovascular exam I would recommend that we obtain an echocardiogram to assess his ventricular function. His last catheterization a year ago demonstrated medically treated disease. Will continue his current medical therapy. I will make further recommendations based on the results of the echocardiogram. I do not think that he needs any stress testing at this time especially since he had an anterior hip replacement. He does have renal dysfunction and this will contribute to added risk perioperatively. His risk is estimated to be in the 6 to 7% range. (2) History of coronary artery disease: PLAN: He does have evidence of coronary disease as noted above from his cardiac catheterization in 2012. (3) Decreased left ventricular systolic function: PLAN: On his last echocardiogram he had mildly reduced left ventricular systolic function. I would suggest that we repeat the above as part of his preoperative evaluation. Depending on the findings further recommendations will be made. HPI Consult Data Date of Consult: 08/21/23 HPI Narrative HPI Narrative: BARI KELLY, is a 67 M who presents with a complaint of mechanical fall and shortness of breath. He fell and fractured his left hip in June; he had pinning of his left hip done. He was discharged home and had been ambulating with a walker. During that admission at [facility], he had COPD exacerbation but was discharged home on room air. He also had an echo done there which showed EF of 25%. While using his walker yesterday he fell and landed on his right hip. He had intractable pain and so he decided to come into the ED. he was diagnosed as having an impacted fracture of his right hip. This consultation is for perioperative evaluation. On admission in the ED, he was noted to be hypoxic with his saturation down to 83% on room air. He however denied feeling short of breath. He is on dialysis and says he had a full session of dialysis yesterday. He denied any chest pain, palpitations, dizziness, nausea vomiting or any other symptoms. Review of systems otherwise negative. Vitals in the ED showed blood pressure of 131/72, pulse rate of 96, respiratory 8 of 21 and temperature of 98 Fahrenheit. He was saturating at 92% on 2 L of oxygen. CBC showed hemoglobin of 12.3 with WBC of 9.5 and platelets of 270. Chemistry showed sodium of 140 with potassium of 3.8 and creatinine of 2.4. Right lower extremity CT showed impacted nondisplaced fracture of the right femoral neck and chest x-ray showed right upper lobe opacity with loss of volume likely chronic and blunting of the costophrenic angles likely due to small pleural effusions or pleural thickening. He has been admitted to be managed for debility due to right nondisplaced femoral neck fracture and hypoxia with concern for fluid overload from ESRD versus CHF exacerbation. He does have a history of coronary artery disease with stenting to his LAD and circumflex in 2003. He also has a history of hypertension, hyperlipidemia, paroxysmal atrial fibrillation, peripheral vascular disease, and diabetes. He has started dialysis (M,W,F). Chest x-ray did demonstrate bibasilar infiltrates. Patient underwent a diagnostic heart catheterization in 2022 which demonstrated Occluded first obtuse marginal branch with ghost filling of this vessel. Previously placed stent to the LAD was patent with mild to moderate in-stent stenosis. Previously stented left circumflex is dominant vessel with mild in-stent stenosis. Medical management was recommended. [facility] Medical History Acute HFrEF (heart failure with reduced ejection fraction) Ischemic cardiomyopathy Elevated troponin Former smoker Chronic renal failure, stage 4 (severe) Wears dentures Cancer Skin tear High cholesterol Back pain History of GI bleed History of IBS Gastric reflux CPAP (continuous positive airway pressure) dependence On home oxygen therapy Shortness of breath on exertion Hypertension DM type 2 causing CKD stage 4 Depression Anxiety Myocardial infarct Sleep apnea COPD (chronic obstructive pulmonary disease) NSVT (nonsustained ventricular tachycardia) Atherosclerosis of coronary artery of [place] heart without angina pectoris Hyperlipidemia NSTEMI (non-ST elevated myocardial infarction) (07/2018) Hyponatremia Metabolic acidosis C. difficile colitis Septic shock Uremia of renal origin Infectious encephalopathy Cholelithiasis Hyperkalemia, diminished renal excretion Pseudomembranous enterocolitis Severe sepsis Hypotension, unspecified Hemorrhoids Colon cancer Stage 3 severe COPD by GOLD classification Peripheral vascular disease Anemia of chronic renal failure Radiculopathy affecting upper extremity NSAID long-term use Heme + stool Iron deficiency anemia Urinary retention due to benign prostatic hyperplasia Increased PTH level Low vitamin D level Paroxysmal atrial fibrillation Nocturnal hypoxia Noncompliance with CPAP treatment LADARIUS (obstructive sleep apnea) Acute respiratory failure with hypoxemia Streptococcal pneumonia Gout Non-STEMI (non-ST elevated myocardial infarction) Lower GI bleed Home Medications ?Medication ?Instructions ?Recorded ?Last Taken ?Type oxycodone 5 mg tablet 5 mg PO BID PRN Pain 05/14/17 08/20/23 History finasteride 5 mg tablet 5 mg PO DAILY prostate 09/15/17 08/20/23 History isosorbide mononitrate 30 mg 15 mg PO DAILY heart 09/15/17 08/20/23 History tablet,extended release 24 hr diazepam 5 mg tablet 5 - 10 mg PO BID PRN anxiety 05/12/18 08/20/23 History escitalopram oxalate 20 mg tablet 20 mg PO DAILY depression 09/30/19 08/20/23 History (Lexapro) ipratropium 0.5 mg-albuterol 3 mg 3 ml inhalation Q4H PRN shortness 09/30/19 08/20/23 History (2.5 mg base)/3 mL nebulization of breath or wheezing soln levothyroxine 88 mcg tablet 88 mcg PO DAILY thyroid 12/07/19 08/20/23 History albuterol sulfate 90 mcg/actuation 2 puff inhalation 4X/DAY breathing 04/28/21 08/20/23 History aerosol inhaler cholecalciferol (vitamin D3) 50 2,000 unit PO DAILY vitamin 04/28/21 08/20/23 History mcg (2,000 unit) capsule (Vitamin D3) loperamide 2 mg capsule 2 mg PO Q4H PRN loose stool 04/28/21 04/23/23 History rosuvastatin 10 mg tablet 10 mg PO DAILY cholesterol 04/28/21 08/20/23 History clopidogrel 75 mg tablet 75 mg PO DAILY HEART 04/01/22 08/20/23 History insulin degludec 100 unit/mL (3 20 - 25 unit subcut BID diabetes 04/01/22 08/20/23 History mL) subcutaneous pen (Tresiba FlexTouch U-100 insulin) insulin lispro 100 unit/mL See Rx Instructions .Route 04/01/22 08/20/23 History subcutaneous pen .COMPLEX DM ferrous sulfate 325 mg (65 mg 325 mg PO QODAY supplement #30 tabs 05/03/22 08/20/23 Rx iron) tablet,delayed release guaifenesin 1,200 mg tablet, 1,200 mg PO BID COUGH #60 tabs 09/10/22 08/20/23 Rx extended release 12 hr (Mucus Relief ER) nitroglycerin 0.4 mg sublingual 0.4 mg sublingual Q5M PRN Chest 11/21/22 Unknown Rx tablet Pain #25 tabs fluticasone fur. 200 mcg-umeclid 1 inh inhalation DAILY SHORTNESS 04/07/23 08/20/23 Rx 62.5 mcg-vilant 25 mcg OF BREATH #60 ea inhalat.powder (Trelegy Ellipta) aspirin 81 mg tablet,delayed 81 mg PO DAILY 08/20/23 08/20/23 History release cilostazol 100 mg tablet 100 mg PO BID 08/20/23 08/20/23 History hydralazine 10 mg tablet 10 mg PO TID 08/20/23 08/20/23 History insulin glargine 100 unit/mL (3 20 unit subcut BID 08/20/23 08/20/23 History mL) subcutaneous pen (Lantus Solostar U-100 Insulin) metoprolol succinate 25 mg 25 mg PO DAILY 08/20/23 08/20/23 History tablet,extended release 24 hr midodrine 5 mg tablet 5 mg PO DAILY 08/20/23 08/20/23 History pantoprazole 40 mg tablet,delayed 40 mg PO DAILY GI 08/20/23 08/20/23 History release sennosides 8.6 mg tablet (senna) 17.2 mg PO BID 08/20/23 08/20/23 History sodium chloride 0.65 % nasal spray 2 spray NASAL Q4H PRN Nasal Dryness 08/20/23 08/20/23 History aerosol (Deep Sea Nasal) Allergy/AdvReac Type Severity Reaction Status Date / Time No Known Allergies Allergy Verified 04/23/23 07:06 Family History Father Leukemia Mother COPD (chronic obstructive pulmonary disease) Surgical History S/P arteriovenous (AV) fistula creation History of esophagogastroduodenoscopy (EGD) Hx of craniotomy History of left heart catheterization (02/27/21) Status post insertion of dialysis catheter (07/2018) History of coronary artery stent placement (02/28/21) Status post colon resection H/O colectomy H/O pneumonectomy Social History household members: spouse housing: other details: mobile home current occupational status: disabled pets and animals: Yes pets and animals: dog(s) Smoking Status: Current every day smoker tobacco type: cigarettes Tobacco: How many years used: 40 second hand exposure: No alcohol intake: never substance use type: does not use ROS Constitutional Constitutional: Denies fever(s) or weight loss Eyes Eyes: Reports systems reviewed and no addt'l complaints, except as documented ENT HEENT: Reports systems reviewed and no addt'l complaints, except as documented Cardiovascular Cardiovascular: Denies chest pain at rest, chest pain with activity, dyspnea at rest, dyspnea on exertion, edema, palpitations or paroxysmal nocturnal dyspnea Respiratory/Chest Respiratory/Chest: Denies dyspnea on exertion, productive cough, shortness of breath at rest or shortness of breath with exertion Gastrointestinal Gastrointestinal: Denies change in bowel habits, nausea, vomiting or weight changes Genitourinary Genitourinary: Denies difficulty urinating Musculoskeletal Musculoskeletal: Denies joint stiffness or muscle weakness Integumentary Integumentary: Denies lesions Neurologic Neurologic: Denies dizziness or syncope Psychiatric Psychiatric: Denies anxiety Endocrine Endocrinology: Denies excessive sweating or fatigue Hematologic/Lymphatic Hematologic/Lymphatic: Denies anemia Allergic/Immunologic Allergic/Immunologic: Denies seasonal rhinorrhea Physical Exam Const alert, oriented x3 and no apparent distress General Appearance: cooperative HEENT hearing grossly normal bilaterally Head and Scalp: atraumatic Eyes EOMs intact bilaterally Neck General: normal visual inspection Chest inspection of chest normal and palpation of chest normal Resp normal respiratory effort Auscultation: clear to auscultation bilaterally Cardio regular rate, regular rhythm, S1 normal heart sound and S2 normal heart sound Jugular Venous Distention: JVD GI normal to inspection, nondistended, normoactive bowel sounds Extremity normal capillary refill and no pedal edema Peripheral Pulses: Yes pulses 2+ throughout and femoral pulses present Skin no rashes or lesions noted Neuro oriented x3 and CN's II-XII intact bilaterally Psych Appearance: grossly normal and appropriate Risk Stratification Risk Stratification Applicable: No Objective Data Vital Signs: Vital Signs Temp Pulse Resp BP Pulse Ox O2 Del Method O2 Flow Rate 97.9 F 78 18 114/73 98 Nasal Cannula 2 08/21/23 06:30 08/21/23 06:36 08/21/23 06:30 08/21/23 06:36 08/21/23 06:30 08/21/23 07:50 08/21/23 07:50 Oxygen Flow Rate (L/min) 2 Oxygen Delivery Method Nasal Cannula Weight: 171 lb 15.369 oz Body Mass Index (BMI) 24.0 Intake & Output: Intake and Output for Last 24 Hours 08/19/23 08/20/23 08/21/23 23:59 23:59 23:59 Intake Total 390 / 390 Balance 390 / 390 Lab / Micro Data 08/21/23 05:19 08/21/23 05:19 Labs: Laboratory Results - last 24 hr 08/20/23 12:00: WBC 9.5, RBC 4.34 L, Hgb 12.3 L, Hct 39.6 L, MCV 91.2, MCH 28.3, MCHC 31.1 L, RDW Std Deviation 64.0 H, RDW Coeff of Joana 19.2 H, Plt Count 270, MPV 12.3 H, Immature Gran % (Auto) 1.500 H, Neut % (Auto) 79.4 H, Lymph % (Auto) 12.5 L, [place] % (Auto) 4.9, Eos % (Auto) 1.4, Baso % (Auto) 0.3, Absolute Neuts (auto) 7.5, Absolute Lymphs (auto) 1.18, Nucleated RBC % 0, Sodium 140, Potassium 3.8, Chloride 101, Carbon Dioxide 32.0, Anion Gap 7, BUN 22 H, Creatinine 2.40 H, Estim Creat Clear Calc 30.42, Est GFR (MDRD) Af Amer 35 L, Est GFR (MDRD) Non-Af 29 L, BUN/Creatinine Ratio 9.2 L, Glucose 107 H, Calcium 9.4 08/20/23 22:52: POC Glucose 180 H 08/21/23 05:19: WBC 7.9, RBC 4.32 L, Hgb 12.4 L, Hct 40.4, MCV 93.5, MCH 28.7, MCHC 30.7 L, RDW Std Deviation 65.0 H, RDW Coeff of Joana 18.8 H, Plt Count 221, MPV 12.5 H, Immature Gran % (Auto) 0.900, Neut % (Auto) 89.3 H, Lymph % (Auto) 7.6 L, [place] % (Auto) 1.9, Eos % (Auto) 0.0, Baso % (Auto) 0.3, Absolute Neuts (auto) 7.1, Absolute Lymphs (auto) 0.60 L, Nucleated RBC % 0, Sodium 139, Potassium 4.0, Chloride 101, Carbon Dioxide 30.0, Anion Gap 8, BUN 39 H, Creatinine 3.75 H, Estim Creat Clear Calc 20.08, Est GFR (MDRD) Af Amer 21 L, Est GFR (MDRD) Non-Af 17 L, BUN/Creatinine Ratio 10.4, Glucose 176 H, Calcium 9.3 08/21/23 06:34: POC Glucose 160 H Cardiology Labs/Tests 08/20/23 12:00: WBC 9.5, RBC 4.34 L, Hgb 12.3 L, Hct 39.6 L, MCV 91.2, MCH 28.3, MCHC 31.1 L, Plt Count 270, MPV 12.3 H, Immature Gran % (Auto) 1.500 H, Neut % (Auto) 79.4 H, Lymph % (Auto) 12.5 L, [place] % (Auto) 4.9, Eos % (Auto) 1.4, Baso % (Auto) 0.3, Absolute Neuts (auto) 7.5, Nucleated RBC % 0, Sodium 140, Potassium 3.8, Chloride 101, Carbon Dioxide 32.0, Anion Gap 7, BUN 22 H, Creatinine 2.40 H, Est GFR (MDRD) Af Amer 35 L, Est GFR (MDRD) Non-Af 29 L, BUN/Creatinine Ratio 9.2 L, Glucose 107 H, Calcium 9.4 08/21/23 05:19: WBC 7.9, RBC 4.32 L, Hgb 12.4 L, Hct 40.4, MCV 93.5, MCH 28.7, MCHC 30.7 L, Plt Count 221, MPV 12.5 H, Immature Gran % (Auto) 0.900, Neut % (Auto) 89.3 H, Lymph % (Auto) 7.6 L, [place] % (Auto) 1.9, Eos % (Auto) 0.0, Baso % (Auto) 0.3, Absolute Neuts (auto) 7.1, Nucleated RBC % 0, Sodium 139, Potassium 4.0, Chloride 101, Carbon Dioxide 30.0, Anion Gap 8, BUN 39 H, Creatinine 3.75 H, Est GFR (MDRD) Af Amer 21 L, Est GFR (MDRD) Non-Af 17 L, BUN/Creatinine Ratio 10.4, Glucose 176 H, Calcium 9.3 Rhythm: EKG: ECHO: Stress Test: Cardiac Cath: PCI: CT Surgery: Holter monitor: EPS: PPM: CXR: Chest CT Scan: Radiography Diagnostic Testing: Radiology Impression Femur X-Ray 08/20/23 11:36 IMPRESSION: Probable impacted fracture of the right femoral neck. CT scan of the pelvis might be of value. Electronically Signed: Maulik Knowles MD at 12:38 EDT Reading Location ID and State: [facility] / [place] Tel , Service support , Hip/Pelvis X-Ray 08/20/23 11:36 IMPRESSION: Status post left hip pinning. Possible impacted fracture of the right femoral neck. Electronically Signed: Maulik Knowles MD at 12:39 EDT Reading Location ID and State: [facility] / [place] Tel , Service support , Chest X-Ray 08/20/23 12:10 IMPRESSION: 1. Right upper lobe opacity with loss of volume likely chronic. 2. Blunting of the costophrenic angles could be due to small pleural effusions or pleural thickening. 3. Otherwise no focal infiltrate is seen. Electronically Signed: Maulik Knowles MD at 12:31 EDT , Lower Extremity CT 08/20/23 13:04 IMPRESSION: Impacted nondisplaced fracture of the right femoral neck. Electronically Signed: Maulik Knowles MD at 13:44 EDT ,
--- NOTE | 2023-08-21 08:43 | ECHOCS_ITS ---
Reason For Study: CAD/ASHD Procedure This was a 2D Doppler, Color Flow transthoracic echocardiogram. Contrast injection was performed. Echo performed with patient laying supine due to right hip fracture. Exam performed portable in patient room. Left Ventricle Normal LV size. The left ventricular ejection fraction is 25 %. Stage 1 diastolic dysfunction. There is moderate to severe global hypokinesis of the left ventricle. Right Ventricle Normal RV size. Normal systolic function. Atria The left atrium is mildly enlarged. The right atrium is mildly enlarged. Mitral Valve Normal mitral valve. Tricuspid Valve Normal tricuspid valve. Aortic Valve Trisinus/trileaflet aortic valve. Moderate focal aortic valve calcification. Pulmonic Valve The pulmonic valve is not well visualized. Great Vessels Normal aortic root. The pulmonary artery is normal size. Pericardium/Pleural No pericardial effusion. Medication Diluted definity 3.5ml given slow IV push to enhance endocardial definition. MMode/2D Measurements & Calculations LVIDd: 6.0 cm IVSd: 1.2 cm LVOT diam: 2.2 cm LVIDs: 5.4 cm LVPWd: 1.1 cm RVDd: 4.4 cm FS: 10.6 % LVOT area: 3.7 cm2 Ao root diam: 3.5 cm LAV(MOD-bp): 70.5 ml LVAd ap4: 49.7 cm2 LA dimension: 4.4 cm LAV(MOD-bp) Indexed: 35.7 ml/m2 LVLd ap4: 9.7 cm LAV(MOD-sp2): 72.4 ml EDV(MOD-sp4): 211.4 ml LAV(MOD-sp4): 67.9 ml EDV(sp4-el): 215.2 ml LVAs ap4: 38.8 cm2 LVLs ap4: 8.2 cm ESV(MOD-sp4): 152.5 ml ESV(sp4-el): 155.7 ml EF(MOD-sp4): 27.9 % EF(sp4-el): 27.7 % LVAd ap2: 43.7 cm2 SV(MOD-sp4): 58.9 ml SV(MOD-sp2): 66.6 ml LVLd ap2: 8.8 cm EDV(MOD-sp2): 177.3 ml EDV(sp2-el): 184.6 ml LVAs ap2: 31.9 cm2 LVLs ap2: 7.6 cm ESV(MOD-sp2): 110.7 ml ESV(sp2-el): 113.4 ml EF(MOD-sp2): 37.6 % SV(sp4-el): 59.5 ml LA A4 area: 23.7 cm2 RA A4 area: 24.4 cm2 TAPSE: 1.8 cm Time Measurements MV dec time: 0.16 sec Doppler Measurements & Calculations MV E max jaun: 101.4 cm/sec Lat Peak E' Jaun: 9.0 cm/sec Med Peak E' Jaun: 5.1 cm/sec MV A max jaun: 102.6 cm/sec E/E' lat: 11.3 E/E' med: 19.8 MV E/A: 0.99 MV V2 max: 126.3 cm/sec MV P1/2t max jaun: 123.1 cm/sec Ao V2 max: 146.7 cm/sec MV max P.4 mmHg MV P1/2t: 61.9 msec Ao max P.6 mmHg MV V2 mean: 79.2 cm/sec MV dec slope: 582.4 cm/sec2 Ao V2 mean: 102.0 cm/sec MV mean P.0 mmHg Ao mean P.6 mmHg MV V2 VTI: 33.7 cm MVA(P1/2t): 3.6 cm2 Ao V2 VTI: 30.4 cm MVA(VTI): 2.9 cm2 AV (velocity ratio): 0.87 SHYAM(I,D): 3.2 cm2 SHYAM(V,D): 3.2 cm2 LV V1 max: 126.2 cm/sec SV(LVOT): 97.6 ml PA V2 max: 71.6 cm/sec LV V1 max P.4 mmHg PA max PG (full): 0.60 mmHg LV V1 mean P.9 mmHg LV V1 mean: 93.6 cm/sec LV V1 VTI: 26.4 cm ECHO/Echo Complete W/ Contrast Interpretation Summary The left ventricular ejection fraction is 25 %. Normal LV size. Moderate focal aortic valve calcification. The left atrium is mildly enlarged. The right atrium is mildly enlarged. Stage 1 diastolic dysfunction. Contrast injection was performed. Ordering Physician: Danis Loza Performed By: Willy Ernandez and Student
[2023-08-21 09:02] LABS: BNP,B-Type NATRIURETIC PEPTIDE > 5000.0 pg/mL (0-100)
[2023-08-21] MEDS: Isosorbide Mononitrate 30 MG Tablet 15 MG PO (09:04)
[2023-08-21] MEDS: Escitalopram Oxalate 20 MG Tablet PO (09:05)
[2023-08-21] MEDS: Metoprolol(XL)Succ 25 MG Tablet PO (09:05)
[2023-08-21] MEDS: Pantoprazole Sodium 40 MG Tablet PO (09:05)
[2023-08-21] MEDS: Midodrine HCl 5 MG Tablet PO (09:06)
[2023-08-21] MEDS: Finasteride 5 MG Tablet PO (09:06)
--- NOTE | 2023-08-21 09:40 | PCM.CONS.R ---
Assessment & Plan Assessment/Plan (1) ESRD (end stage renal disease) on dialysis: PLAN: dialysis MWF [facility] in . Next dialysis Friday (2) Hypertension: QUALIFIERS: Hypertension type: primary hypertension Qualified Code(s): I10 - Essential (primary) hypertension (3) Fall: PLAN: recent left hip fx with pins (4) Fracture of hip, right, closed: PLAN: s/p mechanical fall (5) History of coronary artery disease: (6) DM type 2 (diabetes mellitus, type 2): (7) Iron deficiency anemia: HPI Consult Data Date of Consult: 08/21/23 HPI Narrative Reason for Consultation: ESRD HD MWF HPI Narrative: BARI KELLY, is a 67 M with ESRD on HD MWF was seen at out dialysis center yesterday having difficulty walking after falling over his crutches at home day before. He did not seek medical attention. He was instructed to go to ER where he was diagnosed with right hip fracture. He fell in June and fractured his left hip s/p pin at [facility] undergoing therapy for it. He has COPD, tobacco user, CAD, colon cancer, diabetes, hypertension. [facility] Medical History Acute HFrEF (heart failure with reduced ejection fraction) Ischemic cardiomyopathy Elevated troponin Former smoker Chronic renal failure, stage 4 (severe) Wears dentures Cancer Skin tear High cholesterol Back pain History of GI bleed History of IBS Gastric reflux CPAP (continuous positive airway pressure) dependence On home oxygen therapy Shortness of breath on exertion Hypertension DM type 2 causing CKD stage 4 Depression Anxiety Myocardial infarct Sleep apnea COPD (chronic obstructive pulmonary disease) NSVT (nonsustained ventricular tachycardia) Atherosclerosis of coronary artery of [place] heart without angina pectoris Hyperlipidemia NSTEMI (non-ST elevated myocardial infarction) (07/2018) Hyponatremia Metabolic acidosis C. difficile colitis Septic shock Uremia of renal origin Infectious encephalopathy Cholelithiasis Hyperkalemia, diminished renal excretion Pseudomembranous enterocolitis Severe sepsis Hypotension, unspecified Hemorrhoids Colon cancer Stage 3 severe COPD by GOLD classification Peripheral vascular disease Anemia of chronic renal failure Radiculopathy affecting upper extremity NSAID long-term use Heme + stool Iron deficiency anemia Urinary retention due to benign prostatic hyperplasia Increased PTH level Low vitamin D level Paroxysmal atrial fibrillation Nocturnal hypoxia Noncompliance with CPAP treatment LADARIUS (obstructive sleep apnea) Acute respiratory failure with hypoxemia Streptococcal pneumonia Gout Non-STEMI (non-ST elevated myocardial infarction) Lower GI bleed Home Medications ?Medication ?Instructions ?Recorded ?Last Taken ?Type oxycodone 5 mg tablet 5 mg PO BID PRN Pain 05/14/17 08/20/23 History finasteride 5 mg tablet 5 mg PO DAILY prostate 09/15/17 08/20/23 History isosorbide mononitrate 30 mg 15 mg PO DAILY heart 09/15/17 08/20/23 History tablet,extended release 24 hr diazepam 5 mg tablet 5 - 10 mg PO BID PRN anxiety 05/12/18 08/20/23 History escitalopram oxalate 20 mg tablet 20 mg PO DAILY depression 09/30/19 08/20/23 History (Lexapro) ipratropium 0.5 mg-albuterol 3 mg 3 ml inhalation Q4H PRN shortness 09/30/19 08/20/23 History (2.5 mg base)/3 mL nebulization of breath or wheezing soln levothyroxine 88 mcg tablet 88 mcg PO DAILY thyroid 12/07/19 08/20/23 History albuterol sulfate 90 mcg/actuation 2 puff inhalation 4X/DAY breathing 04/28/21 08/20/23 History aerosol inhaler cholecalciferol (vitamin D3) 50 2,000 unit PO DAILY vitamin 04/28/21 08/20/23 History mcg (2,000 unit) capsule (Vitamin D3) loperamide 2 mg capsule 2 mg PO Q4H PRN loose stool 04/28/21 04/23/23 History rosuvastatin 10 mg tablet 10 mg PO DAILY cholesterol 04/28/21 08/20/23 History clopidogrel 75 mg tablet 75 mg PO DAILY HEART 04/01/22 08/20/23 History insulin degludec 100 unit/mL (3 20 - 25 unit subcut BID diabetes 04/01/22 08/20/23 History mL) subcutaneous pen (Tresiba FlexTouch U-100 insulin) insulin lispro 100 unit/mL See Rx Instructions .Route 04/01/22 08/20/23 History subcutaneous pen .COMPLEX DM ferrous sulfate 325 mg (65 mg 325 mg PO QODAY supplement #30 tabs 05/03/22 08/20/23 Rx iron) tablet,delayed release guaifenesin 1,200 mg tablet, 1,200 mg PO BID COUGH #60 tabs 09/10/22 08/20/23 Rx extended release 12 hr (Mucus Relief ER) nitroglycerin 0.4 mg sublingual 0.4 mg sublingual Q5M PRN Chest 11/21/22 Unknown Rx tablet Pain #25 tabs fluticasone fur. 200 mcg-umeclid 1 inh inhalation DAILY SHORTNESS 04/07/23 08/20/23 Rx 62.5 mcg-vilant 25 mcg OF BREATH #60 ea inhalat.powder (Trelegy Ellipta) aspirin 81 mg tablet,delayed 81 mg PO DAILY 08/20/23 08/20/23 History release cilostazol 100 mg tablet 100 mg PO BID 08/20/23 08/20/23 History hydralazine 10 mg tablet 10 mg PO TID 08/20/23 08/20/23 History insulin glargine 100 unit/mL (3 20 unit subcut BID 08/20/23 08/20/23 History mL) subcutaneous pen (Lantus Solostar U-100 Insulin) metoprolol succinate 25 mg 25 mg PO DAILY 08/20/23 08/20/23 History tablet,extended release 24 hr midodrine 5 mg tablet 5 mg PO DAILY 08/20/23 08/20/23 History pantoprazole 40 mg tablet,delayed 40 mg PO DAILY GI 08/20/23 08/20/23 History release sennosides 8.6 mg tablet (senna) 17.2 mg PO BID 08/20/23 08/20/23 History sodium chloride 0.65 % nasal spray 2 spray NASAL Q4H PRN Nasal Dryness 08/20/23 08/20/23 History aerosol (Deep Sea Nasal) Allergy/AdvReac Type Severity Reaction Status Date / Time No Known Allergies Allergy Verified 04/23/23 07:06 Family History Father Leukemia Mother COPD (chronic obstructive pulmonary disease) Surgical History S/P arteriovenous (AV) fistula creation History of esophagogastroduodenoscopy (EGD) Hx of craniotomy History of left heart catheterization (02/27/21) Status post insertion of dialysis catheter (07/2018) History of coronary artery stent placement (02/28/21) Status post colon resection H/O colectomy H/O pneumonectomy Social History household members: spouse housing: other details: mobile home current occupational status: disabled pets and animals: Yes pets and animals: dog(s) Smoking Status: Current every day smoker tobacco type: cigarettes Tobacco: How many years used: 40 second hand exposure: No alcohol intake: never substance use type: does not use ROS Constitutional Constitutional: Reports weakness; Denies chills or fever(s) Eyes Eyes: Denies loss of vision ENT HEENT: Denies nasal congestion Cardiovascular Cardiovascular: Denies chest pain Respiratory/Chest Respiratory/Chest: Reports dyspnea on exertion; Denies shortness of breath at rest Gastrointestinal Gastrointestinal: Denies abdominal pain, anorexia, nausea or vomiting Musculoskeletal Musculoskeletal: Reports abnormal gait and other Details: left hip fx in June undergoing PT, now with right hip fx s/p mechanical fall Neurologic Neurologic: Reports abnormal gait Psychiatric Psychiatric: Denies anxiety or confusion Physical Exam Const alert and oriented x3 Resp clear to auscultation bilaterally Cardio regular rate Extremity no clubbing, cyanosis or edema Neuro moves all extremities Neuro Narrative: right hip pain, right elbow pain, swelling s/p fall Sensorium / Orientation: awake and alert Psych cooperative Lab / Micro Data 08/21/23 05:19 08/21/23 05:19 Labs: Laboratory Results - last 24 hr 08/20/23 12:00: WBC 9.5, RBC 4.34 L, Hgb 12.3 L, Hct 39.6 L, MCV 91.2, MCH 28.3, MCHC 31.1 L, RDW Std Deviation 64.0 H, RDW Coeff of Joana 19.2 H, Plt Count 270, MPV 12.3 H, Immature Gran % (Auto) 1.500 H, Neut % (Auto) 79.4 H, Lymph % (Auto) 12.5 L, [place] % (Auto) 4.9, Eos % (Auto) 1.4, Baso % (Auto) 0.3, Absolute Neuts (auto) 7.5, Absolute Lymphs (auto) 1.18, Nucleated RBC % 0, Sodium 140, Potassium 3.8, Chloride 101, Carbon Dioxide 32.0, Anion Gap 7, BUN 22 H, Creatinine 2.40 H, Estim Creat Clear Calc 30.42, Est GFR (MDRD) Af Amer 35 L, Est GFR (MDRD) Non-Af 29 L, BUN/Creatinine Ratio 9.2 L, Glucose 107 H, Calcium 9.4 08/20/23 22:52: POC Glucose 180 H 08/21/23 05:19: WBC 7.9, RBC 4.32 L, Hgb 12.4 L, Hct 40.4, MCV 93.5, MCH 28.7, MCHC 30.7 L, RDW Std Deviation 65.0 H, RDW Coeff of Joaan 18.8 H, Plt Count 221, MPV 12.5 H, Immature Gran % (Auto) 0.900, Neut % (Auto) 89.3 H, Lymph % (Auto) 7.6 L, [place] % (Auto) 1.9, Eos % (Auto) 0.0, Baso % (Auto) 0.3, Absolute Neuts (auto) 7.1, Absolute Lymphs (auto) 0.60 L, Nucleated RBC % 0, Sodium 139, Potassium 4.0, Chloride 101, Carbon Dioxide 30.0, Anion Gap 8, BUN 39 H, Creatinine 3.75 H, Estim Creat Clear Calc 20.08, Est GFR (MDRD) Af Amer 21 L, Est GFR (MDRD) Non-Af 17 L, BUN/Creatinine Ratio 10.4, Glucose 176 H, Calcium 9.3, B-Natriuretic Peptide > 5000.0 H 08/21/23 06:34: POC Glucose 160 H Imaging Radiology Impression Femur X-Ray 08/20/23 11:36 IMPRESSION: Probable impacted fracture of the right femoral neck. CT scan of the pelvis might be of value. Electronically Signed: Maulik Knowles MD at 12:38 EDT , Hip/Pelvis X-Ray 08/20/23 11:36 IMPRESSION: Status post left hip pinning. Possible impacted fracture of the right femoral neck. Electronically Signed: Maulik Knowles MD at 12:39 EDT , Chest X-Ray 08/20/23 12:10 IMPRESSION: 1. Right upper lobe opacity with loss of volume likely chronic. 2. Blunting of the costophrenic angles could be due to small pleural effusions or pleural thickening. 3. Otherwise no focal infiltrate is seen. Electronically Signed: Maulik Knowles MD at 12:31 EDT Reading Location ID and State: [facility] / [place] Tel , Service support , Lower Extremity CT 08/20/23 13:04 IMPRESSION: Impacted nondisplaced fracture of the right femoral neck. Electronically Signed: Maulik Knowles MD at 13:44 EDT ,
--- NOTE | 2023-08-21 10:34 | CASEMGMT ---
Social Work Pt's POA for Healthcare w/Living will provision initialed is scanned into [employer]. Pt's sister Leslye Pina is listed as HCPOA. BRENT Hernandez
--- NOTE | 2023-08-21 11:03 | CASEMGMT ---
Social Work SW met w/pt in room in regard to prior level of function and anticipated discharge plan. Pt's sister Leslye also called in, pt agreeable to SW calling her back. PCP: Dr. Baptiste Specialists: Dr. Magana--nephrology, Dr. Barlow--pulmonology, Dr. Loza--Cardiology, Dr. Arzola--Orthopedics, he fixed pt's hip originally 5 weeks ago. Insurance/Prescription Coverage: [employer] Medicare/[facility] Community Plan Dialysis schedule: M, W, F from 6:30am-11am LNOK: Pt has two sisters, granddaughter, stepchildren. As per sister pt has not contact with the stepchildren, and the granddaughter only intermittently. As per sister Leslye she and her help pt, pt's other sister Vita has Alzheimer's. LW/POA: Pt has POA documents on file, pt's sister Leslye is healthcare POA. Living arrangements: Pt lives home alone with his dog in a mobile home, 5 steps in. Pt is normally independent with cooking, cleaning, caring for himself. Pt had hip surgery 5 weeks ago, went home and was managing with some help from his sister. Pt's sister Leslye has been driving pt to therapy, to appts, and [facility] takes pt to dialysis. Leslye was also bringing over meals and taking out pt's trash. Pt state he was still managing everything else, including taking care of his dog. DME: PT has a shower chair, raised toilet, cane, walker, grab bars, wheelchair, nebulizer, pulse ox and crutches SNF/HHC/Outpt PT: Pt has no history of SNF or HHC, he was going to [facility] for outpt PT after his surgery 5 weeks ago and only had two therapy sessions left. Plan: TBD. Pt states he would like to go home from here if he could. Pt explained he managed fine after the last surgery, his sister did help and his granddaughter stayed w/him the first night. SW spoke w/pt about the possibility of going to a nursing home facility this time. SW provided to pt a list via [facility] of nursing home facilities in network w/insurance, in pt's preferred geographic area, and complete w/quality and resource use data. IRMA explained we will follow up w/him after surgery and PT to see what is appropriate. Pt states understanding. Pt is agreeable to SW calling pt's sister back as well. IRMA called pt's sister Leslye in regard to discharge plan. Leslye explains that she has been going over to pt's home constantly to help pt, and has been driving him to appts. She states the granddaughter pt mentioned is not very helpful. She states since pt's , her children(his stepchildren) and grandchildren want nothing to do w/him. She states that pt's used to help them w/finances, and he is not able to help them, so they want nothing to do w/him. Leslye states their other sister Vita has Alzheimer's so cannot help. Leslye states she needs surgery herself soon and her also has health issues so it is difficult for them. Additionally they are caring for pt's dog while he is here. She is hopeful he will agree to going somewhere for some rehab. SW did let her know that SW gave pt a list of facilities that take his insurance, however pt is saying he wants to go home. Pt's sister states she figured he would say this. IRMA explained we will follow up w/pt, and w/her once pt has had surgery and PT to see what is most appropriate. IRMA did also explain to pt's sister the insurance process for precert, Leslye states understanding. IRMA will continue to follow, will follow postop and after PT/OT. BRENT Hernandez
[2023-08-21 11:59] LABS: Bedside Glucose 147 mg/dL (74-106)
--- NOTE | 2023-08-21 13:27 | CON.PCM.OR_ITS ---
HPI Consult Data Date of Consult: 08/21/23 HPI Narrative HPI Narrative: BARI KELLY, is a 67 M who presents with right hip pain following a ground-level fall. He was admitted to the hospital last night with a diagnosis of impacted right femoral neck fracture. I was consulted for surgical management. I saw the patient today in PCU 103. He was in bed comfortable pain well- controlled. He says that he had a left hip fracture which was treated with closed reduction and pinning about 2 months ago. He mentioned that the reason for this choice of surgery was his medical comorbidities and need for a quicker recovery. He lives by himself in a trailer. He has 4 steps to get in with strong railings. He had been using a walker as he was recovering from the left hip fracture. He mentioned that he did not have any pain with weightbearing on the left side. His pain is only on the right groin at this point. He denies any other injuries other than the right elbow which is dressed for possible wound. He is on blood thinners for cardiac issues and also on dialysis. [facility] Medical History Acute HFrEF (heart failure with reduced ejection fraction) Ischemic cardiomyopathy Elevated troponin Former smoker Chronic renal failure, stage 4 (severe) Wears dentures Cancer Skin tear High cholesterol Back pain History of GI bleed History of IBS Gastric reflux CPAP (continuous positive airway pressure) dependence On home oxygen therapy Shortness of breath on exertion Hypertension DM type 2 causing CKD stage 4 Depression Anxiety Myocardial infarct Sleep apnea COPD (chronic obstructive pulmonary disease) NSVT (nonsustained ventricular tachycardia) Atherosclerosis of coronary artery of [place] heart without angina pectoris Hyperlipidemia NSTEMI (non-ST elevated myocardial infarction) (07/2018) Hyponatremia Metabolic acidosis C. difficile colitis Septic shock Uremia of renal origin Infectious encephalopathy Cholelithiasis Hyperkalemia, diminished renal excretion Pseudomembranous enterocolitis Severe sepsis Hypotension, unspecified Hemorrhoids Colon cancer Stage 3 severe COPD by GOLD classification Peripheral vascular disease Anemia of chronic renal failure Radiculopathy affecting upper extremity NSAID long-term use Heme + stool Iron deficiency anemia Urinary retention due to benign prostatic hyperplasia Increased PTH level Low vitamin D level Paroxysmal atrial fibrillation Nocturnal hypoxia Noncompliance with CPAP treatment LADARIUS (obstructive sleep apnea) Acute respiratory failure with hypoxemia Streptococcal pneumonia Gout Non-STEMI (non-ST elevated myocardial infarction) Lower GI bleed Home Medications ?Medication ?Instructions ?Recorded ?Last Taken ?Type oxycodone 5 mg tablet 5 mg PO BID PRN Pain 05/14/17 08/20/23 History finasteride 5 mg tablet 5 mg PO DAILY prostate 09/15/17 08/20/23 History isosorbide mononitrate 30 mg 15 mg PO DAILY heart 09/15/17 08/20/23 History tablet,extended release 24 hr diazepam 5 mg tablet 5 - 10 mg PO BID PRN anxiety 05/12/18 08/20/23 History escitalopram oxalate 20 mg tablet 20 mg PO DAILY depression 09/30/19 08/20/23 History (Lexapro) ipratropium 0.5 mg-albuterol 3 mg 3 ml inhalation Q4H PRN shortness 09/30/19 08/20/23 History (2.5 mg base)/3 mL nebulization of breath or wheezing soln levothyroxine 88 mcg tablet 88 mcg PO DAILY thyroid 12/07/19 08/20/23 History albuterol sulfate 90 mcg/actuation 2 puff inhalation 4X/DAY breathing 04/28/21 08/20/23 History aerosol inhaler cholecalciferol (vitamin D3) 50 2,000 unit PO DAILY vitamin 04/28/21 08/20/23 History mcg (2,000 unit) capsule (Vitamin D3) loperamide 2 mg capsule 2 mg PO Q4H PRN loose stool 04/28/21 04/23/23 History rosuvastatin 10 mg tablet 10 mg PO DAILY cholesterol 04/28/21 08/20/23 History clopidogrel 75 mg tablet 75 mg PO DAILY HEART 04/01/22 08/20/23 History insulin degludec 100 unit/mL (3 20 - 25 unit subcut BID diabetes 04/01/22 08/20/23 History mL) subcutaneous pen (Tresiba FlexTouch U-100 insulin) insulin lispro 100 unit/mL See Rx Instructions .Route 04/01/22 08/20/23 History subcutaneous pen .COMPLEX DM ferrous sulfate 325 mg (65 mg 325 mg PO QODAY supplement #30 tabs 05/03/22 08/20/23 Rx iron) tablet,delayed release guaifenesin 1,200 mg tablet, 1,200 mg PO BID COUGH #60 tabs 09/10/22 08/20/23 Rx extended release 12 hr (Mucus Relief ER) nitroglycerin 0.4 mg sublingual 0.4 mg sublingual Q5M PRN Chest 11/21/22 Unknown Rx tablet Pain #25 tabs fluticasone fur. 200 mcg-umeclid 1 inh inhalation DAILY SHORTNESS 04/07/23 08/20/23 Rx 62.5 mcg-vilant 25 mcg OF BREATH #60 ea inhalat.powder (Trelegy Ellipta) aspirin 81 mg tablet,delayed 81 mg PO DAILY 08/20/23 08/20/23 History release cilostazol 100 mg tablet 100 mg PO BID 08/20/23 08/20/23 History hydralazine 10 mg tablet 10 mg PO TID 08/20/23 08/20/23 History insulin glargine 100 unit/mL (3 20 unit subcut BID 08/20/23 08/20/23 History mL) subcutaneous pen (Lantus Solostar U-100 Insulin) metoprolol succinate 25 mg 25 mg PO DAILY 08/20/23 08/20/23 History tablet,extended release 24 hr midodrine 5 mg tablet 5 mg PO DAILY 08/20/23 08/20/23 History pantoprazole 40 mg tablet,delayed 40 mg PO DAILY GI 08/20/23 08/20/23 History release sennosides 8.6 mg tablet (senna) 17.2 mg PO BID 08/20/23 08/20/23 History sodium chloride 0.65 % nasal spray 2 spray NASAL Q4H PRN Nasal Dryness 08/20/23 08/20/23 History aerosol (Deep Sea Nasal) Allergy/AdvReac Type Severity Reaction Status Date / Time No Known Allergies Allergy Verified 04/23/23 07:06 Family History Father Leukemia Mother COPD (chronic obstructive pulmonary disease) Surgical History S/P arteriovenous (AV) fistula creation History of esophagogastroduodenoscopy (EGD) Hx of craniotomy History of left heart catheterization (02/27/21) Status post insertion of dialysis catheter (07/2018) History of coronary artery stent placement (02/28/21) Status post colon resection H/O colectomy H/O pneumonectomy Social History household members: spouse housing: other details: mobile home current occupational status: disabled pets and animals: Yes pets and animals: dog(s) Smoking Status: Current every day smoker tobacco type: cigarettes Tobacco: How many years used: 40 second hand exposure: No alcohol intake: never substance use type: does not use Vital Signs Vital Signs Vital Signs: 08/20/23 14:00 08/20/23 15:00 08/20/23 15:13 Temperature 98 F Temperature Source Pulse Rate 96 93 96 Respiratory Rate 21 H 23 H 21 H Respiratory Effort Respiratory Depth Respiratory Pattern Blood Pressure 138/86 H 134/78 H 131/72 H Blood Pressure Mean 102 96 91 Blood Pressure Source Blood Pressure Position Blood Pressure Location Pulse Ox 94 88 92 Oxygen Delivery Method Oxygen Flow Rate (L/min) 2 08/20/23 16:00 08/20/23 17:46 08/20/23 17:48 Temperature 97.9 F Temperature Source Oral Pulse Rate 105 H 106 H Respiratory Rate 20 H 18 Respiratory Effort Respiratory Depth Respiratory Pattern Blood Pressure 137/80 H 148/79 H Blood Pressure Mean 99 102 Blood Pressure Source Monitor Blood Pressure Position Semi-Fowlers Blood Pressure Location Right Arm Pulse Ox 95 95 Oxygen Delivery Method Nasal Cannula Nasal Cannula Nasal Cannula Oxygen Flow Rate (L/min) 2 2 2 08/20/23 18:00 08/20/23 19:40 08/20/23 19:40 Temperature Temperature Source Pulse Rate 102 H Respiratory Rate 14 Respiratory Effort Normal Non-Labored Respiratory Depth Normal Respiratory Pattern Normal Normal Blood Pressure Blood Pressure Mean Blood Pressure Source Blood Pressure Position Blood Pressure Location Pulse Ox 91 Oxygen Delivery Method Nasal Cannula Nasal Cannula Oxygen Flow Rate (L/min) 2 2 08/20/23 22:40 08/20/23 22:47 08/20/23 22:57 Temperature 98.5 F Temperature Source Oral Pulse Rate 100 100 Respiratory Rate 18 Respiratory Effort Normal Non-Labored Respiratory Depth Normal Respiratory Pattern Normal Blood Pressure 132/85 H 132/85 H Blood Pressure Mean 100 Blood Pressure Source Monitor Blood Pressure Position Semi-Fowlers Blood Pressure Location Left Arm Pulse Ox 95 Oxygen Delivery Method Nasal Cannula Nasal Cannula Oxygen Flow Rate (L/min) 2 2 08/21/23 02:23 08/21/23 02:25 08/21/23 06:30 Temperature 97.8 F 97.9 F Temperature Source Oral Oral Pulse Rate 85 78 Respiratory Rate 16 18 Respiratory Effort Normal Non-Labored Respiratory Depth Normal Respiratory Pattern Normal Blood Pressure 123/79 H 113/73 Blood Pressure Mean 93 86 Blood Pressure Source Monitor Monitor Blood Pressure Position Semi-Fowlers Semi-Fowlers Blood Pressure Location Right Arm Right Arm Pulse Ox 98 98 Oxygen Delivery Method Nasal Cannula Nasal Cannula Nasal Cannula Oxygen Flow Rate (L/min) 2 2 2 08/21/23 06:36 08/21/23 07:50 08/21/23 09:05 Temperature Temperature Source Pulse Rate 78 83 Respiratory Rate Respiratory Effort Normal Non-Labored Respiratory Depth Normal Respiratory Pattern Normal Blood Pressure 114/73 105/65 Blood Pressure Mean Blood Pressure Source Blood Pressure Position Blood Pressure Location Pulse Ox Oxygen Delivery Method Nasal Cannula Oxygen Flow Rate (L/min) 2 08/21/23 11:11 08/21/23 11:11 08/21/23 12:49 Temperature 96.9 F L 96.9 F L Temperature Source Temporal Temporal Pulse Rate 77 77 101 H Respiratory Rate 18 18 20 H Respiratory Effort Respiratory Depth Respiratory Pattern Normal Blood Pressure 94/69 94/69 Blood Pressure Mean 77 77 Blood Pressure Source Monitor Monitor Blood Pressure Position Semi-Fowlers Semi-Fowlers Blood Pressure Location Right Arm Right Arm Pulse Ox 96 96 Oxygen Delivery Method Nasal Cannula Nasal Cannula Oxygen Flow Rate (L/min) 2 2 08/21/23 12:49 Temperature Temperature Source Pulse Rate Respiratory Rate Respiratory Effort Respiratory Depth Respiratory Pattern Blood Pressure Blood Pressure Mean Blood Pressure Source Blood Pressure Position Blood Pressure Location Pulse Ox 93 Oxygen Delivery Method Nasal Cannula Oxygen Flow Rate (L/min) 2 Weight Weight: 171 lb 15.369 oz Body Mass Index (BMI) 24.0 Physical Exam Narrative Examination the right hip shows tenderness around the anterolateral aspect of the right hip. There is pain with rotation of the right lower extremity. Distal neurovascular exam is intact. Examination of the left lower extremity shows no obvious pain on range of motion. Const alert and oriented x3 Lab / Micro Data 08/21/23 05:19 08/21/23 05:19 Labs: Laboratory Results - last 24 hr 08/20/23 22:52: POC Glucose 180 H 08/21/23 05:19: WBC 7.9, RBC 4.32 L, Hgb 12.4 L, Hct 40.4, MCV 93.5, MCH 28.7, M CHC 30.7 L, RDW Std Deviation 65.0 H, RDW Coeff of Joana 18.8 H, Plt Count 221, M PV 12.5 H, Immature Gran % (Auto) 0.900, Neut % (Auto) 89.3 H, Lymph % (Auto) 7.6 L, [place] % (Auto) 1.9, Eos % (Auto) 0.0, Baso % (Auto) 0.3, Absolute Neuts (auto) 7.1, Absolute Lymphs (auto) 0.60 L, Nucleated RBC % 0, Sodium 139, Potassium 4.0, Chloride 101, Carbon Dioxide 30.0, Anion Gap 8, BUN 39 H, C reatinine 3.75 H, Estim Creat Clear Calc 20.08, Est GFR (MDRD) Af Amer 21 L, Est GFR (MDRD) Non-Af 17 L, BUN/Creatinine Ratio 10.4, Glucose 176 H, Calcium 9.3, B -Natriuretic Peptide > 5000.0 H 08/21/23 06:34: POC Glucose 160 H 08/21/23 11:14: POC Glucose 147 H Imaging Radiology Impression Lower Extremity CT 08/20/23 13:04 IMPRESSION: Impacted nondisplaced fracture of the right femoral neck. Electronically Signed: Maulik Knowles MD at 13:44 EDT , Echocardiogram 08/21/23 08:43 Interpretation Summary The left ventricular ejection fraction is 25 %. Normal LV size. Moderate focal aortic valve calcification. The left atrium is mildly enlarged. The right atrium is mildly enlarged. Stage 1 diastolic dysfunction. Contrast injection was performed. Ordering Physician: Danis Loza Performed By: Willy Ernandez and Student Assessment & Plan Assessment/Plan (1) Fracture of femoral neck, right, closed: QUALIFIERS: Encounter type: initial encounter Qualified Code(s): S72.001A - Fracture of unspecified part of neck of right femur, initial encounter for closed fracture PLAN: Plan I reviewed the x-rays of the right hip and pelvis as well as a CT done last night. These show impacted subcapital right femoral neck fracture. Left hip shows postsurgical changes of close reduction percutaneous pinning. I explained to him the imaging findings in detail. Patient has an impacted right femoral neck fracture. Treatment options were discussed. Surgical treatment is recommended for earlier return to ambulation with lower recumbency complications. Patient has significant medical comorbidities especially cardiac and renal. Minimizing the extent of surgery with close reduction percutaneous pinning was discussed. Patient was agreeable. Surgery will be right hip closed reduction percutaneous pinning. All risk benefits and alternatives were discussed in detail with the risks include but are not limited to infection, bleeding, injury to nerves and vessels, hardware failure, malunion, nonunion, avascular necrosis, head resorption, need for further surgery, need for hip replacement in the future, DVT, pulm embolism, cardiopulmonary event. Patient understands and agrees to proceed with surgery. Charges/Coding Visit Charges Inpatient E&M: 93593 Init Hosp L3
[2023-08-21 16:49] LABS: Bedside Glucose 131 mg/dL (74-106)
[2023-08-21] MEDS: Furosemide 40 MG/4 ML Vial IV (17:15)
[2023-08-21] MEDS: Atorvastatin Calcium 20 MG Tablet PO (21:28)
[2023-08-21] MEDS: guaiFENesin 1,200 MG Tablet 1200 MG PO (21:28)
[2023-08-21] MEDS: Insulin Glargine-YFGN 100 UNIT/ML Pen 20 UNIT SC (21:29)
[2023-08-21 22:55] LABS: Bedside Glucose 226 mg/dL (74-106)
[2023-08-22] VITALS (26 sets, daily range): BP systolic 90–236; BP diastolic 52–86; PULSE 62–80; RESP 14–20; TEMP 36–37; O2SAT 95–100; BMI 24.6
[2023-08-22] MEDS: Levothyroxine 88 MCG Tablet PO (05:09)
[2023-08-22] MEDS: hydrALAZINE 10 MG Tablet PO ×2 (05:09→21:13)
[2023-08-22 05:44] LABS: Absolute Lymphocyte Count 0.75 X10^3/uL (0.83-4.51); Absolute Neutrophil Count 7.7 X10^3/uL (2.0-7.7); Basophil# 0.02 X10^3/uL; Basophil% 0.2 % (0-1); Hematocrit 37.4 % (40-54); Hemoglobin 11.2 g/dL (13.0-16.5); Lymphocyte # 0.75 X10^3/ul (0.83-4.51); Lymphocyte % 8.5 % (19-41); Mean Corp Hgb Conc 29.9 g/dL (32-36); Mean Corpuscular Hgb 28.1 pg (27.0-32.0); Mean Platelet Vol. 12.6 fl (6.2-12.0); Monocyte# 0.31 X10^3/uL; Monocyte% 3.5 % (0-10); NRBC Flagged by Analyzer 0 % (0-5); Neutrophil # 7.66 X10^3/uL (2.7-7.7); Platelet Count 228 K/mm3 (150-450); RBC Distribution Width CV 18.6 % (11.6-14.6); RBC Distribution Width SD 64.9 fl (35.1-43.9); Red Blood Count 3.98 M/mm3 (4.6-6.2); White Blood Count 8.8 K/mm3 (4.4-11.0)
[2023-08-22 07:08] LABS: Bedside Glucose 176 mg/dL (74-106)
[2023-08-22] MEDS: Ipratropium/Albuterol Sulfate 3 ML AMPUL.NEB INHALATION ×2 (07:31→19:18)
[2023-08-22] MEDS: 0.9% Saline Lock 10 ML Syringe IV (07:54)
[2023-08-22] MEDS: 0.9% Normal Saline 1,000 ML IV.SOLN. 1000 ML OPERA.SITE (07:54)
[2023-08-22] MEDS: PureFlow B 2K Dialysis Soln 1 BAG 6 BAG PF (07:55)
[2023-08-22 08:20] LABS: Anion Gap 12 (5-15); BUN 68 mg/dL (7-18); BUN/Creat Ratio 14.5 RATIO (10-20); Chloride 101 mmol/L (98-107); EST Glomerular Filtration Rate 13 mL/min (>60); Est Glom Filt Rate - Afr Amer 16 mL/min (>60); Estimated Creatinine Clearance 16.02 ml/min; Glucose 212 mg/dL (74-106); Potassium 4.1 mmol/L (3.5-5.1); Sodium Level 139 mmol/L (136-145)
[2023-08-22] MEDS: Midodrine HCl 5 MG Tablet PO (08:31)
[2023-08-22] MEDS: Isosorbide Mononitrate 30 MG Tablet 15 MG PO (10:38)
[2023-08-22] MEDS: Pantoprazole Sodium 40 MG Tablet PO (10:39)
[2023-08-22] MEDS: Metoprolol(XL)Succ 25 MG Tablet PO (10:39)
[2023-08-22 11:01] LABS: Bedside Glucose 150 mg/dL (74-106)
--- NOTE | 2023-08-22 11:07 | PN.HOSP_ITS ---
Reason for Visit Reason for Visit: Diagnoses Heart disease, unspecified (08/20/23) Fracture of unspecified part of neck of right femur, initial encounter for closed fracture (08/20/23) Unspecified fall, initial encounter (08/20/23) Encounter for preprocedural cardiovascular examination (08/20/23) Personal history of other diseases of the circulatory system (08/20/23) Subjective Subjective Feels well. Objective Data Objective Data Vital Signs: Vital Signs Temp Pulse Resp BP Pulse Ox O2 Del Method O2 Flow Rate 36.0 C L 69 14 137/82 H 100 Nasal Cannula 2 08/22/23 10:28 08/22/23 10:39 08/22/23 10:30 08/22/23 10:30 08/22/23 10:30 08/22/23 10:30 08/22/23 10:30 Oxygen Flow Rate (L/min) 2 Oxygen Delivery Method Nasal Cannula Weight: 80.1 kg Body Mass Index (BMI) 24.6 Intake & Output: Intake and Output for Last 24 Hours 08/20/23 08/21/23 08/22/23 23:59 23:59 23:59 Intake Total 390 / 390 270 / 270 Output Total 250 / 250 0 / 0 Balance 390 / 390 20 / 20 0 / 0 Lab / Micro Data 08/22/23 05:25 08/22/23 05:25 Labs: Laboratory Results - last 24 hr 08/21/23 11:14: POC Glucose 147 H 08/21/23 16:28: POC Glucose 131 H 08/21/23 21:23: POC Glucose 226 H 08/22/23 05:25: WBC 8.8, RBC 3.98 L, Hgb 11.2 L, Hct 37.4 L, MCV 94.0, MCH 28.1, MCHC 29.9 L, RDW Std Deviation 64.9 H, RDW Coeff of Joana 18.6 H, Plt Count 228, M PV 12.6 H, Immature Gran % (Auto) 0.800, Neut % (Auto) 87.0 H, Lymph % (Auto) 8.5 L, [place] % (Auto) 3.5, Eos % (Auto) 0.0, Baso % (Auto) 0.2, Absolute Neuts (auto) 7.7, Absolute Lymphs (auto) 0.75 L, Nucleated RBC % 0, Sodium 139, Potassium 4.1, Chloride 101, Carbon Dioxide 26.0, Anion Gap 12, BUN 68 H, C reatinine 4.70 H, Estim Creat Clear Calc 16.02, Est GFR (MDRD) Af Amer 16 L, Est GFR (MDRD) Non-Af 13 L, BUN/Creatinine Ratio 14.5, Glucose 212 H, Calcium 9.0 08/22/23 06:18: POC Glucose 176 H 08/22/23 10:36: POC Glucose 150 H Physical Exam Const alert and no apparent distress Constitutional Narrative: seen while on HD. No respiratory distress. HEENT head/scalp atraumatic and moist oral mucous membranes Resp normal respiratory effort and no retractions Cardio regular rate, regular rhythm, S1 normal heart sound and S2 normal heart sound GI normal to inspection, nondistended, normoactive bowel sounds, soft to palpation, non-tender and non-distended Extremity normal to inspection and full ROM Neuro Sensorium / Orientation: awake and alert Psych affect normal Assessment & Plan Assessment/Plan (1) Fracture of hip, right, closed: (2) Fall: PLAN: Plan Right impacted femoral neck fracture * s/p fall * ortho consult. Cleared by cardiology * check 25-OH d level. Acute HFrEF * EF 50% from echo on 04/29/2022. Now 25%. Further recommendations per cardiology. * Pt still produces urine despite being on HD. Started on IV furosemide. Will discontinue * No ACEi/ARB given ESRD ESRD * on HD despite producing urine * nephrology consulted Possible AECOPD: * on methylpred and BDs. Start prednisone burst for 5 days on 08/22. * Wean oxygen as tolerated. DM2 * insulin-dependent * glargine 20 BID and SSI. CAD: * [facility] on 05/02/22: CAD with occluded first obtuse marginal branch with ghost filling of the distal vessel. Previously stented left anterior descending artery which is patent with mild to moderate in-stent stenosis. Previously stented left circumflex artery which is dominant vessel with mid in-stent stenosis. And later down in the angiography was noted nondominant RCA with 90% mid stenosis. Plan was for medical management at that time. * On aspirin, clopidogrel, atorvastatin. Will place the aspirin and clopidogrel on hold for now for surgery Chronic conditions: * Hypothyroidism: levothyroxine * Hypertension: On metoprolol succinate DVT prophylaxis: SCDs Code status: full code Charges/Coding Visit Charges Inpatient E&M: 78273 Subs Hosp L2
--- NOTE | 2023-08-22 11:11 | CASEMGMT ---
Addendum entered by Yarely Donald 08/22/23 12:56: Rakel from [facility] verifies that the pt current O2 order states 2L with exertion via NC. Addendum entered by Yarely Donald 08/22/23 11:23: Dr. Tucker states that he anticipates the pt being here through the weekend. Original Note: DEVEN SAAVEDRA to pt room at this time in regard to DC planning. Pt just finished with HD treatment. Pt Sx was delayed yesterday and the pt is scheduled for surgery today. Pt states that he is active with [facility] and has a few more appointments scheduled. Pt denies SNF at this time. Pt wishes to return home once medically ready. This DEVEN SAAVEDRA educated the pt that we will see how he does with therapy after surgery to decipher a safe discharge plan. Pt states understanding and that he would be open to HHC as well. At this time, the plan is TBD. SNF vs HHC vs OP Tx. CM/SW to follow.
--- NOTE | 2023-08-22 11:32 | EKG12_ITS ---
Test Reason : POST OP Blood Pressure : / mmHG Vent. Rate : 067 BPM Atrial Rate : 067 BPM P-R Int : 192 ms QRS Dur : 090 ms QT Int : 474 ms P-R-T Axes : 057 058 084 degrees QTc Int : 500 ms Sinus rhythm with occasional Premature ventricular complexes Nonspecific T wave abnormality Abnormal ECG When compared with ECG of 22-AUG-2023 11:44, MANUAL COMPARISON REQUIRED, DATA IS UNCONFIRMED Confirmed by HARSH ASIF, SARA ([id number]), design editor JARED MADRID ([id number]) on 09/02/2023 9:32:02 AM Referred By: STAR Confirmed By:SARA HOUSE MD
[2023-08-22] MEDS: 0.9% Normal Saline (1000mL) 1,000 ML 15 ML IV (11:41)
--- NOTE | 2023-08-22 11:43 | NURSING ---
ekg at this time
--- NOTE | 2023-08-22 11:44 | EKG12_ITS ---
Test Reason : PREOP Blood Pressure : / mmHG Vent. Rate : 075 BPM Atrial Rate : 075 BPM P-R Int : 204 ms QRS Dur : 088 ms QT Int : 426 ms P-R-T Axes : 031 058 089 degrees QTc Int : 475 ms Sinus rhythm with occasional Premature ventricular complexes Nonspecific T wave abnormality Abnormal ECG When compared with ECG of 23-APR-2023 07:29, Premature ventricular complexes are now Present Nonspecific T wave abnormality no longer evident in Inferior leads Confirmed by HARSH ASIF, SARA ([id number]), news copy editor JARED MADRID ([id number]) on 09/02/2023 11:03:36 AM Referred By: GERTRUDE Confirmed By:SARA HOUSE MD
--- NOTE | 2023-08-22 12:10 | CON.PCM.OR_ITS ---
HPI Consult Data Date of Consult: 08/22/23 HPI Narrative HPI Narrative: BARI KELLY, is a 67 M who presents for a right hip valgus impacted femoral neck fracture. I was asked to see the patient by my colleague Dr. Whitt this morning. The patient is n.p.o. for surgery. He had a previous hip fracture on the other side about 2 months ago that was treated with cannulated screws in a similar fashion as the plan for the right side. The patient was recovering from surgery at home using a crutch and an ambulatory aid he fell at home was having some difficulty ambulating and ongoing pain so presented to the emergency room. He is in preoperative holding at the moment pending the anesthesia go ahead for surgery. He does have multiple medical problems complicating his treatment and including diabetes and dialysis. [facility] Medical History Acute HFrEF (heart failure with reduced ejection fraction) Ischemic cardiomyopathy Elevated troponin Former smoker Chronic renal failure, stage 4 (severe) Wears dentures Cancer Skin tear High cholesterol Back pain History of GI bleed History of IBS Gastric reflux CPAP (continuous positive airway pressure) dependence On home oxygen therapy Shortness of breath on exertion Hypertension DM type 2 causing CKD stage 4 Depression Anxiety Myocardial infarct Sleep apnea COPD (chronic obstructive pulmonary disease) NSVT (nonsustained ventricular tachycardia) Atherosclerosis of coronary artery of [place] heart without angina pectoris Hyperlipidemia NSTEMI (non-ST elevated myocardial infarction) (07/2018) Hyponatremia Metabolic acidosis C. difficile colitis Septic shock Uremia of renal origin Infectious encephalopathy Cholelithiasis Hyperkalemia, diminished renal excretion Pseudomembranous enterocolitis Severe sepsis Hypotension, unspecified Hemorrhoids Colon cancer Stage 3 severe COPD by GOLD classification Peripheral vascular disease Anemia of chronic renal failure Radiculopathy affecting upper extremity NSAID long-term use Heme + stool Iron deficiency anemia Urinary retention due to benign prostatic hyperplasia Increased PTH level Low vitamin D level Paroxysmal atrial fibrillation Nocturnal hypoxia Noncompliance with CPAP treatment LADARIUS (obstructive sleep apnea) Acute respiratory failure with hypoxemia Streptococcal pneumonia Gout Non-STEMI (non-ST elevated myocardial infarction) Lower GI bleed Home Medications ?Medication ?Instructions ?Recorded ?Last Taken ?Type oxycodone 5 mg tablet 5 mg PO BID PRN Pain 05/14/17 08/20/23 History finasteride 5 mg tablet 5 mg PO DAILY prostate 09/15/17 08/20/23 History isosorbide mononitrate 30 mg 15 mg PO DAILY heart 09/15/17 08/20/23 History tablet,extended release 24 hr diazepam 5 mg tablet 5 - 10 mg PO BID PRN anxiety 05/12/18 08/20/23 History escitalopram oxalate 20 mg tablet 20 mg PO DAILY depression 09/30/19 08/20/23 History (Lexapro) ipratropium 0.5 mg-albuterol 3 mg 3 ml inhalation Q4H PRN shortness 09/30/19 08/20/23 History (2.5 mg base)/3 mL nebulization of breath or wheezing soln levothyroxine 88 mcg tablet 88 mcg PO DAILY thyroid 12/07/19 08/20/23 History albuterol sulfate 90 mcg/actuation 2 puff inhalation 4X/DAY breathing 04/28/21 08/20/23 History aerosol inhaler cholecalciferol (vitamin D3) 50 2,000 unit PO DAILY vitamin 04/28/21 08/20/23 History mcg (2,000 unit) capsule (Vitamin D3) loperamide 2 mg capsule 2 mg PO Q4H PRN loose stool 04/28/21 04/23/23 History rosuvastatin 10 mg tablet 10 mg PO DAILY cholesterol 04/28/21 08/20/23 History clopidogrel 75 mg tablet 75 mg PO DAILY HEART 04/01/22 08/20/23 History insulin degludec 100 unit/mL (3 20 - 25 unit subcut BID diabetes 04/01/22 08/20/23 History mL) subcutaneous pen (Tresiba FlexTouch U-100 insulin) insulin lispro 100 unit/mL See Rx Instructions .Route 04/01/22 08/20/23 History subcutaneous pen .COMPLEX DM ferrous sulfate 325 mg (65 mg 325 mg PO QODAY supplement #30 tabs 05/03/22 08/20/23 Rx iron) tablet,delayed release guaifenesin 1,200 mg tablet, 1,200 mg PO BID COUGH #60 tabs 09/10/22 08/20/23 Rx extended release 12 hr (Mucus Relief ER) nitroglycerin 0.4 mg sublingual 0.4 mg sublingual Q5M PRN Chest 11/21/22 Unknown Rx tablet Pain #25 tabs fluticasone fur. 200 mcg-umeclid 1 inh inhalation DAILY SHORTNESS 04/07/23 08/20/23 Rx 62.5 mcg-vilant 25 mcg OF BREATH #60 ea inhalat.powder (Trelegy Ellipta) aspirin 81 mg tablet,delayed 81 mg PO DAILY 08/20/23 08/20/23 History release cilostazol 100 mg tablet 100 mg PO BID 08/20/23 08/20/23 History hydralazine 10 mg tablet 10 mg PO TID 08/20/23 08/20/23 History insulin glargine 100 unit/mL (3 20 unit subcut BID 08/20/23 08/20/23 History mL) subcutaneous pen (Lantus Solostar U-100 Insulin) metoprolol succinate 25 mg 25 mg PO DAILY 08/20/23 08/20/23 History tablet,extended release 24 hr midodrine 5 mg tablet 5 mg PO DAILY 08/20/23 08/20/23 History pantoprazole 40 mg tablet,delayed 40 mg PO DAILY GI 08/20/23 08/20/23 History release sennosides 8.6 mg tablet (senna) 17.2 mg PO BID 08/20/23 08/20/23 History sodium chloride 0.65 % nasal spray 2 spray NASAL Q4H PRN Nasal Dryness 08/20/23 08/20/23 History aerosol (Deep Sea Nasal) Allergy/AdvReac Type Severity Reaction Status Date / Time No Known Allergies Allergy Verified 04/23/23 07:06 Family History Father Leukemia Mother COPD (chronic obstructive pulmonary disease) Surgical History S/P arteriovenous (AV) fistula creation History of esophagogastroduodenoscopy (EGD) Hx of craniotomy History of left heart catheterization (02/27/21) Status post insertion of dialysis catheter (07/2018) History of coronary artery stent placement (02/28/21) Status post colon resection H/O colectomy H/O pneumonectomy Social History household members: spouse housing: other details: mobile home current occupational status: disabled pets and animals: Yes pets and animals: dog(s) Smoking Status: Current every day smoker tobacco type: cigarettes Tobacco: How many years used: 40 second hand exposure: No alcohol intake: never substance use type: does not use Vital Signs Vital Signs Vital Signs: 08/21/23 12:49 08/21/23 12:49 08/21/23 14:15 Temperature Temperature Source Pulse Rate 101 H 67 Respiratory Rate 20 H Respiratory Effort Respiratory Depth Respiratory Pattern Normal Blood Pressure 101/65 Blood Pressure Mean 77 Blood Pressure Source Monitor Blood Pressure Position Semi-Fowlers Blood Pressure Location Right Arm Pulse Ox 93 Oxygen Delivery Method Nasal Cannula Oxygen Flow Rate (L/min) 2 08/21/23 14:30 08/21/23 17:15 08/21/23 19:25 Temperature 97 F L Temperature Source Temporal Pulse Rate 75 Respiratory Rate 16 Respiratory Effort Normal Non-Labored Respiratory Depth Normal Respiratory Pattern Normal Blood Pressure 106/61 Blood Pressure Mean 76 Blood Pressure Source Monitor Blood Pressure Position Semi-Fowlers Blood Pressure Location Right Arm Pulse Ox 97 82 Oxygen Delivery Method Nasal Cannula Nasal Cannula Room Air Oxygen Flow Rate (L/min) 2 2 08/21/23 19:26 08/21/23 19:28 08/21/23 20:18 Temperature Temperature Source Pulse Rate 77 Respiratory Rate 18 Respiratory Effort Normal Non-Labored Respiratory Depth Normal Respiratory Pattern Normal Normal Blood Pressure Blood Pressure Mean Blood Pressure Source Blood Pressure Position Blood Pressure Location Pulse Ox 95 Oxygen Delivery Method Nasal Cannula Nasal Cannula Oxygen Flow Rate (L/min) 2 2 08/21/23 21:24 08/21/23 21:28 08/22/23 05:07 Temperature 97.7 F L 97.6 F L Temperature Source Temporal Temporal Pulse Rate 80 80 74 Respiratory Rate 18 18 Respiratory Effort Respiratory Depth Respiratory Pattern Blood Pressure 100/57 L 100/57 L 125/80 H Blood Pressure Mean 71 95 Blood Pressure Source Blood Pressure Position Blood Pressure Location Pulse Ox 96 95 Oxygen Delivery Method Nasal Cannula Room Air Oxygen Flow Rate (L/min) 2 08/22/23 05:09 08/22/23 05:15 08/22/23 07:30 Temperature Temperature Source Pulse Rate 74 Respiratory Rate Respiratory Effort Normal Non-Labored Normal Non-Labored Respiratory Depth Normal Normal Respiratory Pattern Normal Normal Blood Pressure 125/80 H Blood Pressure Mean Blood Pressure Source Blood Pressure Position Blood Pressure Location Pulse Ox Oxygen Delivery Method Room Air Nasal Cannula Oxygen Flow Rate (L/min) 2 08/22/23 07:31 08/22/23 07:31 08/22/23 07:33 Temperature Temperature Source Pulse Rate 78 75 Respiratory Rate 20 H 16 Respiratory Effort Normal Respiratory Depth Respiratory Pattern Normal Blood Pressure 90/52 L Blood Pressure Mean 64 Blood Pressure Source Monitor Blood Pressure Position Semi-Fowlers Blood Pressure Location Right Arm Pulse Ox 99 97 Oxygen Delivery Method Nasal Cannula Nasal Cannula Oxygen Flow Rate (L/min) 2 2 08/22/23 07:35 08/22/23 08:00 08/22/23 08:30 Temperature 96.9 F L Temperature Source Temporal Pulse Rate 78 76 80 Respiratory Rate 18 16 16 Respiratory Effort Respiratory Depth Respiratory Pattern Blood Pressure 118/77 102/53 L 123/67 H Blood Pressure Mean 90 69 85 Blood Pressure Source Monitor Monitor Monitor Blood Pressure Position Semi-Fowlers Semi-Fowlers Semi-Fowlers Blood Pressure Location Right Arm Left Arm Left Arm Pulse Ox 99 97 97 Oxygen Delivery Method Nasal Cannula Nasal Cannula Nasal Cannula Oxygen Flow Rate (L/min) 2 2 2 08/22/23 09:00 08/22/23 09:30 08/22/23 10:00 Temperature Temperature Source Pulse Rate 73 67 76 Respiratory Rate 16 14 14 Respiratory Effort Respiratory Depth Respiratory Pattern Blood Pressure 127/66 H 143/76 H 141/75 H Blood Pressure Mean 86 98 97 Blood Pressure Source Manual Monitor Monitor Blood Pressure Position Semi-Fowlers Semi-Fowlers Semi-Fowlers Blood Pressure Location Right Arm Right Arm Right Arm Pulse Ox 99 97 100 Oxygen Delivery Method Nasal Cannula Nasal Cannula Nasal Cannula Oxygen Flow Rate (L/min) 2 2 2 08/22/23 10:28 08/22/23 10:30 08/22/23 10:39 Temperature 96.8 F L Temperature Source Temporal Pulse Rate 66 69 69 Respiratory Rate 16 14 Respiratory Effort Respiratory Depth Respiratory Pattern Blood Pressure 137/82 H 137/82 H Blood Pressure Mean 100 100 Blood Pressure Source Monitor Monitor Blood Pressure Position Semi-Fowlers Semi-Fowlers Blood Pressure Location Right Arm Right Arm Pulse Ox 100 100 Oxygen Delivery Method Nasal Cannula Nasal Cannula Oxygen Flow Rate (L/min) 2 2 08/22/23 11:10 Temperature Temperature Source Pulse Rate 77 Respiratory Rate 16 Respiratory Effort Normal Respiratory Depth Normal Respiratory Pattern Normal Blood Pressure 138/86 H Blood Pressure Mean 103 Blood Pressure Source Monitor Blood Pressure Position Semi-Fowlers Blood Pressure Location Right Arm Pulse Ox 100 Oxygen Delivery Method Nasal Cannula Oxygen Flow Rate (L/min) 2 Weight Weight: 176 lb 9.444 oz Body Mass Index (BMI) 24.6 Physical Exam Const alert, oriented x3 and no apparent distress General Appearance: well developed Extremity normal capillary refill, no clubbing, cyanosis or edema, no calf tenderness and no pedal edema Extremity Narrative: Closed injury right hip marked. Pain at the right hip. Neurovascularly intact distally normal sensation motor function throughout the foot foot is warm and well-perfused able to wiggle the toes dorsiflex and plantarflex foot good dorsalis pedis pulse. Lab / Micro Data 08/22/23 05:25 08/22/23 05:25 Labs: Laboratory Results - last 24 hr 08/21/23 16:28: POC Glucose 131 H 08/21/23 21:23: POC Glucose 226 H 08/22/23 05:25: WBC 8.8, RBC 3.98 L, Hgb 11.2 L, Hct 37.4 L, MCV 94.0, MCH 28.1, MCHC 29.9 L, RDW Std Deviation 64.9 H, RDW Coeff of Joana 18.6 H, Plt Count 228, M PV 12.6 H, Immature Gran % (Auto) 0.800, Neut % (Auto) 87.0 H, Lymph % (Auto) 8.5 L, [place] % (Auto) 3.5, Eos % (Auto) 0.0, Baso % (Auto) 0.2, Absolute Neuts (auto) 7.7, Absolute Lymphs (auto) 0.75 L, Nucleated RBC % 0, Sodium 139, Potassium 4.1, Chloride 101, Carbon Dioxide 26.0, Anion Gap 12, BUN 68 H, C reatinine 4.70 H, Estim Creat Clear Calc 16.02, Est GFR (MDRD) Af Amer 16 L, Est GFR (MDRD) Non-Af 13 L, BUN/Creatinine Ratio 14.5, Glucose 212 H, Calcium 9.0 08/22/23 06:18: POC Glucose 176 H 08/22/23 10:36: POC Glucose 150 H Imaging Right hip valgus impacted femoral neck fracture nondisplaced. Assessment & Plan Assessment/Plan (1) Fracture of femoral neck, right, closed: QUALIFIERS: Encounter type: initial encounter Qualified Code(s): S72.001A - Fracture of unspecified part of neck of right femur, initial encounter for closed fracture PLAN: 67-year-old man with a right femoral neck fracture valgus impacted [place] 1. Nondisplaced. My preference would be for open reduction internal fixation in the form of cannulated screws. This does have the risk of nonunion and necessitating hardware removal and subsequent arthroplasty however this is my preferred form of treatment to try to get this to heal in good alignment and position he had a good result on the other side with a similar construct and similar fracture type. We discussed the pros and cons risk and benefits of conservative nonoperative management versus surgery patient wished to go ahead signed the consent form for surgery as well as possible need for blood products. I marked the right hip. No further questions or concerns from the patient. Pros and cons risks and benefits were discussed with the patient including but not limited to infection, pain, stiffness, bleeding, damage to surrounding structures, neurovascular injury, recurrence or retear, failure or wear of hardware or fixation, instability, fracture, deep vein thrombosis and pulmonary embolism, anesthetic risks, , patient dissatisfaction, need for further surgery and other risks. Patient understood and wished to proceed with surgery, and signed the informed consent documentation.
--- NOTE | 2023-08-22 13:30 | RAD_ITS ---
EXAM: FL FLUOROSCOPY < 1 HOUR CLINICAL INDICATION: FX TECHNIQUE: Fluoroscopic images performed in multiple projections. A total of 3 fluoroscopically guided spot images were obtained. Fluoroscopic guidance was provided by a physician. A total of 84 seconds correspond to 16.82 mGycm was utilized. COMPARISON: No relevant prior studies available. FINDINGS: BONES/JOINTS: Final image demonstrates 3 cannulated screws fixing a subcapital fracture of the femoral neck in good alignment. SOFT TISSUES: Unremarkable. RAD/Hip 1 view with Pelvis IMPRESSION: Status post cannulated screw fixation subcapital fracture right femoral neck in good alignment. Electronically Signed: Jonathan Guan MD at 7:34 EDT ,
[2023-08-22] MEDS: TRANEXAMIC ACID 1,000 MG in 0.9% Normal Saline (100mL Bag) 100 ML 660 MG IV (14:02)
[2023-08-22] MEDS: Bupivacaine 0.25% 30 ML Vial (14:10)
--- NOTE | 2023-08-22 14:16 | PCM.OPRPT ---
Problems Associated Problem List Diagnoses (1) Fracture of femoral neck, right, closed: Report of Operation Pre-Operative Diagnosis: Right femoral neck fracture Post-Operative Diagnosis: The same Surgery/Procedure Performed:: Right hip open reduction internal fixation 7.3 mm cannulated screws Surgeon: Luis Parker Type of Anesthesia: General and Local Anesthesiologist: Bert Kline Estimated Blood Loss (mL): 20 Description of Procedure: Patient brought to operating room theater. Administered general anesthetic placed on the fracture table supine. 2 g IV Ancef administered prior to start the case as well as 1 g IV tranexamic acid. Patient to well-leg scissoring position attached the middle post of the bed peroneal nerve appropriately padded. Right leg in the traction set up but no traction just some slight internal rotation. Limb prepped and draped in the usual sterile fashion with chlorhexidine-based prep solution allowing over 3 minutes drying time prior to draping. Preoperative timeout performed to confirm the site patient and surgery. Began by taking AP lateral radiographs of the hip to ensure the nondisplaced nature of the valgus impacted femoral neck fracture. Still appears nondisplaced. 2 small stab hole incisions to insert 3 partially-threaded guidewires in an inverted triangle fashion at just proximal to the level lesser trochanter to avoid stress riser. Advanced these through the femoral neck into the subchondral bone of the femoral head. There is 1 inferior calcar wire and then too proximal to this for an inverted triangle configuration. Took AP lateral radiographs to ensure appropriate length. I measured these I drilled the near cortex. I inserted a Synthes 7.3 mm partially-threaded short threaded cannulated screws. The inferior 1 was 100 mm along the anterior superior 1 was 85 mm long and the posterior superior 1 was 90 mm along. These all were placed with washers had good purchase into the bone. The wire was backed off near far live fluoroscopy technique employed to ensure no screw penetration. All threads were across the fracture site. Guidewire was fully removed final radiographs were taken. Case terminated wound thoroughly irrigated. Subcutaneous tissue closed with 2-0 Vicryl suture and skin with 3-0 Monocryl. Skin cleaned with wet dry dressing. 10 cc of 4% bupivacaine instilled in around the soft tissues. Steri-Strips followed by gauze and clear plastic adherent dressing was then placed. Patient woken up from general acetic transfer off the operating table taken postanesthetic care unit in stable addition. Sponge needle instrument counts were correct no complications plan for patient partial weightbearing while in hospital PT and OT to assess and the hospitalist to dose the postoperative VTE anticoagulation due to renal problems. cpt 18397 Grafts/Implants Used: cannulated screws 7.3mm synthes Complications none Admit VTE Documentation VTE Present on Admission: Yes VTE Mechan Device Prophylaxis: SCD's VTE Pharm Prophylaxis ordered?: Yes Procedures Musculoskeletal [id number]: Other Procedure See Report
[2023-08-22 15:42] LABS: Troponin-I HS 27 pg/mL (3.0-78.0)
[2023-08-22] MEDS: oxyCODONE 5 MG Tablet PO (16:36)
[2023-08-22] MEDS: Escitalopram Oxalate 20 MG Tablet PO (16:36)
[2023-08-22] MEDS: Finasteride 5 MG Tablet PO (16:36)
[2023-08-22 17:00] LABS: Bedside Glucose 138 mg/dL (74-106)
[2023-08-22] MEDS: Atorvastatin Calcium 20 MG Tablet PO (21:13)
[2023-08-22] MEDS: guaiFENesin 1,200 MG Tablet 1200 MG PO (21:13)
[2023-08-22] MEDS: Senna Tablet 2 TABLET PO (21:13)
[2023-08-22] MEDS: Insulin Glargine-YFGN 100 UNIT/ML Pen 20 UNIT SC (21:13)
[2023-08-22] MEDS: Insulin Lispro 100 UNIT/ML INSULN.PEN SC (21:14)
[2023-08-22 21:56] LABS: Bedside Glucose 224 mg/dL (74-106)
[2023-08-23] VITALS (13 sets, daily range): BP systolic 103–144; BP diastolic 63–87; PULSE 65–79; RESP 14–18; TEMP 36.1–37.1; O2SAT 86–98; BMI 24.7
[2023-08-23 05:31] LABS: Absolute Lymphocyte Count 0.55 X10^3/uL (0.83-4.51); Absolute Neutrophil Count 10.5 X10^3/uL (2.0-7.7); Basophil# 0.01 X10^3/uL; Basophil% 0.1 % (0-1); Hematocrit 37.2 % (40-54); Lymphocyte # 0.55 X10^3/ul (0.83-4.51); Lymphocyte % 4.8 % (19-41); Mean Corp Hgb Conc 29.6 g/dL (32-36); Mean Corpuscular Hgb 28.1 pg (27.0-32.0); Mean Corpuscular Volume 95.1 fL (80-94); Mean Platelet Vol. 12.4 fl (6.2-12.0); Monocyte# 0.35 X10^3/uL; Monocyte% 3.1 % (0-10); NRBC Flagged by Analyzer 0 % (0-5); Neutrophil # 10.45 X10^3/uL (2.7-7.7); Neutrophil % 91.5 % (47-70); POSITIVE DIFFERENTIAL YES; Platelet Count 220 K/mm3 (150-450); RBC Distribution Width CV 18.5 % (11.6-14.6); RBC Distribution Width SD 64.3 fl (35.1-43.9); Red Blood Count 3.91 M/mm3 (4.6-6.2); White Blood Count 11.4 K/mm3 (4.4-11.0)
[2023-08-23 05:50] LABS: Anion Gap 7 (5-15); BUN 62 mg/dL (7-18); BUN/Creat Ratio 14.4 RATIO (10-20); Calcium,Total 8.4 mg/dL (8.5-10.1); Chloride 102 mmol/L (98-107); Creatinine, Serum 4.31 mg/dL (0.70-1.30); EST Glomerular Filtration Rate 15 mL/min (>60); Est Glom Filt Rate - Afr Amer 18 mL/min (>60); Estimated Creatinine Clearance 17.47 ml/min; Glucose 177 mg/dL (74-106); Potassium 4.2 mmol/L (3.5-5.1); Sodium Level 137 mmol/L (136-145)
[2023-08-23 05:55] LABS: Vitamin D,25 Hydroxy 76.4 ng/mL
[2023-08-23] MEDS: Levothyroxine 88 MCG Tablet PO (06:45)
[2023-08-23] MEDS: hydrALAZINE 10 MG Tablet PO ×3 (06:45→21:29)
[2023-08-23] MEDS: Insulin Lispro 100 UNIT/ML INSULN.PEN SC ×4 (06:46→21:24)
[2023-08-23 07:11] LABS: Bedside Glucose 195 mg/dL (74-106)
--- NOTE | 2023-08-23 07:22 | PN.HOSP_ITS ---
Reason for Visit Reason for Visit: Diagnoses Heart disease, unspecified (08/20/23) Fracture of unspecified part of neck of right femur, initial encounter for closed fracture (08/20/23) Unspecified fall, initial encounter (08/20/23) Encounter for preprocedural cardiovascular examination (08/20/23) Personal history of other diseases of the circulatory system (08/20/23) Subjective Subjective Feeling well. Would very much prefer to go home. Objective Data Objective Data Vital Signs: Vital Signs Temp Pulse Resp BP Pulse Ox O2 Del Method O2 Flow Rate 36.1 C L 72 18 118/63 86 Room Air 2 08/23/23 04:02 08/23/23 06:45 08/23/23 04:02 08/23/23 06:45 08/23/23 04:13 08/23/23 04:13 08/23/23 04:02 Oxygen Flow Rate (L/min) 2 Oxygen Delivery Method Room Air Weight: 80.5 kg Body Mass Index (BMI) 24.7 Intake & Output: Intake and Output for Last 24 Hours 08/21/23 08/22/23 08/23/23 23:59 23:59 23:59 Intake Total 270 / 270 185 / 185 Output Total 250 / 250 1050 / 1050 0 / 0 Balance 20 / 20 -865 / -865 0 / 0 Lab / Micro Data 08/23/23 04:45 08/23/23 04:45 Labs: Laboratory Results - last 24 hr 08/22/23 05:25: Sodium 139, Potassium 4.1, Chloride 101, Carbon Dioxide 26.0, Anion Gap 12, BUN 68 H, Creatinine 4.70 H, Estim Creat Clear Calc 16.02, Est GFR (MDRD) Af Amer 16 L, Est GFR (MDRD) Non-Af 13 L, BUN/Creatinine Ratio 14.5, G lucose 212 H, Calcium 9.0 08/22/23 10:36: POC Glucose 150 H 08/22/23 15:05: Troponin I High Sens 27 08/22/23 16:34: POC Glucose 138 H 08/22/23 21:11: POC Glucose 224 H 08/23/23 04:45: WBC 11.4 H, RBC 3.91 L, Hgb 11.0 L, Hct 37.2 L, MCV 95.1 H, MCH 28.1, MCHC 29.6 L, RDW Std Deviation 64.3 H, RDW Coeff of Joana 18.5 H, Plt Count 220, MPV 12.4 H, Immature Gran % (Auto) 0.500, Neut % (Auto) 91.5 H, Lymph % (Auto) 4.8 L, [place] % (Auto) 3.1, Eos % (Auto) 0.0, Baso % (Auto) 0.1, Absolute Neuts (auto) 10.5 H, Absolute Lymphs (auto) 0.55 L, Nucleated RBC % 0, Sodium 137, Potassium 4.2, Chloride 102, Carbon Dioxide 28.0, Anion Gap 7, BUN 62 H, C reatinine 4.31 H, Estim Creat Clear Calc 17.47, Est GFR (MDRD) Af Amer 18 L, Est GFR (MDRD) Non-Af 15 L, BUN/Creatinine Ratio 14.4, Glucose 177 H, Calcium 8.4 L, Vitamin D 25-Hydroxy 76.4 08/23/23 06:41: POC Glucose 195 H Physical Exam Const alert and no apparent distress HEENT head/scalp atraumatic and moist oral mucous membranes Resp normal respiratory effort, no retractions, no use of accessory muscles and clear to auscultation bilaterally Cardio regular rate, regular rhythm, S1 normal heart sound and S2 normal heart sound GI normal to inspection, nondistended, normoactive bowel sounds and soft to palpation Assessment & Plan Assessment/Plan (1) Fracture of hip, right, closed: (2) Fall: PLAN: Plan Right impacted femoral neck fracture * s/p fall * ortho consult. Cleared by cardiology * 25-OH d level 76.4 Acute HFrEF * EF 50% from echo on 04/29/2022. Now 25%. * Pt still produces urine despite being on HD. Started on IV furosemide. Will discontinue. Continue metoprolol succinate * No ACEi/ARB given ESRD ESRD * on HD despite producing urine * nephrology following Possible AECOPD: * on methylpred and BDs. Start prednisone burst for 5 days on 08/22. * Wean oxygen as tolerated. DM2 * insulin-dependent * glargine 20 BID and SSI. CAD: * [facility] on 05/02/22: CAD with occluded first obtuse marginal branch with ghost filling of the distal vessel. Previously stented left anterior descending artery which is patent with mild to moderate in-stent stenosis. Previously stented left circumflex artery which is dominant vessel with mid in-stent stenosis. And later down in the angiography was noted nondominant RCA with 90% mid stenosis. Plan was for medical management at that time. * Continue aspirin, clopidogrel, atorvastatin. Chronic conditions: * Hypothyroidism: levothyroxine * Hypertension: On metoprolol succinate DVT prophylaxis: SCDs. ASA 81 BID for 30 days, then resume daily dosing. Code status: full code Disposition: To be determined pending therapy evaluations. Discussed with the patient's sister at bedside, with the patient's permission. Charges/Coding Visit Charges Inpatient E&M: 38954 Subs Hosp L2
[2023-08-23] MEDS: Ipratropium/Albuterol Sulfate 3 ML AMPUL.NEB INHALATION ×3 (08:23→19:32)
[2023-08-23] MEDS: Metoprolol(XL)Succ 25 MG Tablet PO (09:23)
[2023-08-23] MEDS: Finasteride 5 MG Tablet PO (09:24)
[2023-08-23] MEDS: Midodrine HCl 5 MG Tablet PO (09:24)
[2023-08-23] MEDS: Isosorbide Mononitrate 30 MG Tablet 15 MG PO (09:24)
[2023-08-23] MEDS: Pantoprazole Sodium 40 MG Tablet PO (09:24)
[2023-08-23] MEDS: Senna Tablet 2 TABLET PO ×2 (09:25→21:29)
[2023-08-23] MEDS: predniSONE 20 MG Tablet 40 MG PO (09:25)
[2023-08-23] MEDS: Escitalopram Oxalate 20 MG Tablet PO (09:26)
[2023-08-23] MEDS: Cholecalciferol (VIT D3) 25 MCG TABLET (1,000 UNITS) 50 MCG PO (09:26)
[2023-08-23] MEDS: guaiFENesin 1,200 MG Tablet 1200 MG PO ×2 (09:26→21:29)
[2023-08-23] MEDS: Insulin Glargine-YFGN 100 UNIT/ML Pen 20 UNIT SC ×2 (09:27→21:25)
[2023-08-23] MEDS: Aspirin 81 MG TAB.CHEW PO ×2 (09:30→17:13)
[2023-08-23] MEDS: Clopidogrel Bisulfate 75 MG Tablet PO (09:30)
[2023-08-23 11:29] LABS: Bedside Glucose 198 mg/dL (74-106)
--- NOTE | 2023-08-23 11:54 | PN.ORTHO_ITS ---
Subjective Subjective Doing well. no pain. no concerns. Objective Data Objective Data Vital Signs: Vital Signs Temp Pulse Resp BP Pulse Ox O2 Del Method O2 Flow Rate 98.7 F 76 18 118/63 98 Nasal Cannula 3 08/23/23 08:00 08/23/23 09:23 08/23/23 08:08 08/23/23 09:23 08/23/23 08:08 08/23/23 08:08 08/23/23 08:08 Oxygen Flow Rate (L/min) 3 Oxygen Delivery Method Nasal Cannula Weight: 177 lb 7.554 oz Body Mass Index (BMI) 24.7 Intake & Output: Intake and Output for Last 24 Hours 08/21/23 08/22/23 08/23/23 23:59 23:59 23:59 Intake Total 270 / 270 185 / 185 Output Total 250 / 250 1050 / 1050 0 / 0 Balance -865 / -865 0 / 0 Lab / Micro Data 08/23/23 04:45 08/23/23 04:45 Labs: Laboratory Results - last 24 hr 08/22/23 15:05: Troponin I High Sens 27 08/22/23 16:34: POC Glucose 138 H 08/22/23 21:11: POC Glucose 224 H 08/23/23 04:45: WBC 11.4 H, RBC 3.91 L, Hgb 11.0 L, Hct 37.2 L, MCV 95.1 H, MCH 28.1, MCHC 29.6 L, RDW Std Deviation 64.3 H, RDW Coeff of Joana 18.5 H, Plt Count 220, MPV 12.4 H, Immature Gran % (Auto) 0.500, Neut % (Auto) 91.5 H, Lymph % (Auto) 4.8 L, [place] % (Auto) 3.1, Eos % (Auto) 0.0, Baso % (Auto) 0.1, Absolute Neuts (auto) 10.5 H, Absolute Lymphs (auto) 0.55 L, Nucleated RBC % 0, Sodium 137, Potassium 4.2, Chloride 102, Carbon Dioxide 28.0, Anion Gap 7, BUN 62 H, C reatinine 4.31 H, Estim Creat Clear Calc 17.47, Est GFR (MDRD) Af Amer 18 L, Est GFR (MDRD) Non-Af 15 L, BUN/Creatinine Ratio 14.4, Glucose 177 H, Calcium 8.4 L, Vitamin D 25-Hydroxy 76.4 08/23/23 06:41: POC Glucose 195 H 08/23/23 11:10: POC Glucose 198 H Radiography Diagnostic Testing: Radiology Impression Hip/Pelvis X-Ray 08/22/23 13:30 IMPRESSION: Status post cannulated screw fixation subcapital fracture right femoral neck in good alignment. Electronically Signed: Jonathan Guan MD at 7:34 EDT , Physical Exam Narrative Comfortable laying flat. rouses easily. drsg dry. nvi normal sens and motor function to the foot. thigh soft. Assessment & Plan Assessment/Plan (1) Fracture of femoral neck, right, closed: QUALIFIERS: Encounter type: initial encounter Qualified Code(s): S72.001A - Fracture of unspecified part of neck of right femur, initial encounter for closed fracture PLAN: 67 yr M POD 1 right hip cannulated screws. doing well. no concerns. CCM. Partial WB if able.
--- NOTE | 2023-08-23 13:50 | CASEMGMT ---
Addendum entered by Natalia uDnlap 08/23/23 14:46: Social Work Referrals sent to [facility] and [facility] via [facility]. SW to follow up on Friday. BRENT Hernandez Original Note: Social Work SW met w/pt in regard to discharge plan. Pt is agreeable to go to rehab for a short time. Pt states has a girlfriend who is a nurse and she is moving here from [place], will help him at home. However, she is not able to move here just yet. He is agreeable at this time for referrals to [facility] and [facility]. SW will make referrals and follow up w/pt on Friday. BRENT Hernandez
[2023-08-23 17:32] LABS: Bedside Glucose 191 mg/dL (74-106)
[2023-08-23] MEDS: Atorvastatin Calcium 20 MG Tablet PO (21:29)
[2023-08-23 22:52] LABS: Bedside Glucose 204 mg/dL (74-106)
[2023-08-24] VITALS (7 sets, daily range): BP systolic 125–149; BP diastolic 64–83; PULSE 75–83; RESP 16–18; TEMP 36.6–36.7; O2SAT 94–98; BMI 25.4
[2023-08-24 05:41] LABS: Absolute Lymphocyte Count 0.69 X10^3/uL (0.83-4.51); Absolute Neutrophil Count 11.1 X10^3/uL (2.0-7.7); Basophil# 0.02 X10^3/uL; Basophil% 0.2 % (0-1); Hematocrit 36.2 % (40-54); Hemoglobin 10.8 g/dL (13.0-16.5); Lymphocyte # 0.69 X10^3/ul (0.83-4.51); Lymphocyte % 5.5 % (19-41); Mean Corp Hgb Conc 29.8 g/dL (32-36); Mean Corpuscular Hgb 28.4 pg (27.0-32.0); Mean Corpuscular Volume 95.3 fL (80-94); Mean Platelet Vol. 12.3 fl (6.2-12.0); Monocyte# 0.78 X10^3/uL; Monocyte% 6.2 % (0-10); NRBC Flagged by Analyzer 0 % (0-5); Neutrophil # 11.07 X10^3/uL (2.7-7.7); Neutrophil % 87.3 % (47-70); Platelet Count 188 K/mm3 (150-450); RBC Distribution Width CV 18.3 % (11.6-14.6); RBC Distribution Width SD 63.9 fl (35.1-43.9); White Blood Count 12.7 K/mm3 (4.4-11.0)
[2023-08-24 06:11] LABS: Anion Gap 9 (5-15); BUN 86 mg/dL (7-18); BUN/Creat Ratio 16.7 RATIO (10-20); Calcium,Total 8.5 mg/dL (8.5-10.1); Chloride 104 mmol/L (98-107); Creatinine, Serum 5.16 mg/dL (0.70-1.30); EST Glomerular Filtration Rate 12 mL/min (>60); Est Glom Filt Rate - Afr Amer 14 mL/min (>60); Estimated Creatinine Clearance 14.59 ml/min; Glucose 188 mg/dL (74-106); Potassium 4.5 mmol/L (3.5-5.1); Sodium Level 137 mmol/L (136-145)
[2023-08-24] MEDS: Levothyroxine 88 MCG Tablet PO (06:29)
[2023-08-24] MEDS: hydrALAZINE 10 MG Tablet PO (06:29)
[2023-08-24] MEDS: Insulin Lispro 100 UNIT/ML INSULN.PEN SC ×2 (06:33→12:00)
[2023-08-24] MEDS: oxyCODONE 5 MG Tablet PO (06:37)
[2023-08-24 06:57] LABS: Bedside Glucose 169 mg/dL (74-106)
[2023-08-24] MEDS: Ipratropium/Albuterol Sulfate 3 ML AMPUL.NEB INHALATION (07:00)
--- NOTE | 2023-08-24 07:46 | PN.HOSP_ITS ---
Reason for Visit Reason for Visit: Diagnoses Iron deficiency anemia, unspecified (08/20/23) Type 2 diabetes mellitus without complications (08/20/23) Essential (primary) hypertension (08/20/23) Heart disease, unspecified (08/20/23) End stage renal disease (08/20/23) Fracture of unspecified part of neck of right femur, initial encounter for closed fracture (08/20/23) Unspecified fall, initial encounter (08/20/23) Encounter for preprocedural cardiovascular examination (08/20/23) Personal history of other diseases of the circulatory system (08/20/23) Dependence on renal dialysis (08/20/23) Subjective Subjective Feeling well. Objective Data Objective Data Vital Signs: Vital Signs Temp Pulse Resp BP Pulse Ox O2 Del Method O2 Flow Rate 36.7 C 76 16 149/83 H 98 Nasal Cannula 2 08/24/23 03:15 08/24/23 07:00 08/24/23 07:00 08/24/23 06:25 08/24/23 07:00 08/24/23 07:00 08/24/23 07:00 Oxygen Flow Rate (L/min) 2 Oxygen Delivery Method Nasal Cannula Weight: 82.8 kg Body Mass Index (BMI) 25.4 Intake & Output: Intake and Output for Last 24 Hours 08/22/23 08/23/23 08/24/23 23:59 23:59 23:59 Intake Total 185 / 185 240 / 240 Output Total 1050 / 1050 1050 / 1050 200 / 200 Balance -865 / -865 -810 / -810 -200 / -200 Lab / Micro Data 08/24/23 05:10 08/24/23 05:10 Labs: Laboratory Results - last 24 hr 08/23/23 11:10: POC Glucose 198 H 08/23/23 17:12: POC Glucose 191 H 08/23/23 21:23: POC Glucose 204 H 08/24/23 05:10: WBC 12.7 H, RBC 3.80 L, Hgb 10.8 L, Hct 36.2 L, MCV 95.3 H, MCH 28.4, MCHC 29.8 L, RDW Std Deviation 63.9 H, RDW Coeff of Joana 18.3 H, Plt Count 188, MPV 12.3 H, Immature Gran % (Auto) 0.800, Neut % (Auto) 87.3 H, Lymph % (Auto) 5.5 L, [place] % (Auto) 6.2, Eos % (Auto) 0.0, Baso % (Auto) 0.2, Absolute Neuts (auto) 11.1 H, Absolute Lymphs (auto) 0.69 L, Nucleated RBC % 0, Sodium 137, Potassium 4.5, Chloride 104, Carbon Dioxide 24.0, Anion Gap 9, BUN 86 H, C reatinine 5.16 H, Estim Creat Clear Calc 14.59, Est GFR (MDRD) Af Amer 14 L, Est GFR (MDRD) Non-Af 12 L, BUN/Creatinine Ratio 16.7, Glucose 188 H, Calcium 8.5 08/24/23 06:32: POC Glucose 169 H Physical Exam Const alert and no apparent distress Constitutional Narrative: up in chair on room air. HEENT head/scalp atraumatic Extremity normal to inspection and no clubbing, cyanosis or edema Neuro Sensorium / Orientation: awake and alert Psych affect normal Assessment & Plan Assessment/Plan (1) Fracture of hip, right, closed: (2) Fall: PLAN: Plan Right impacted femoral neck fracture * s/p fall * Status post right hip ORIF with cannulated screws. Performed on the seventh. * 25-OH d level 76.4 * Partial weightbearing. Acute HFrEF * EF 50% from echo on 04/29/2022. Now 25%. * Pt still produces urine despite being on HD. Started on IV furosemide. Will discontinue. Continue metoprolol succinate * No ACEi/ARB given ESRD ESRD * on HD despite producing urine * nephrology following Possible AECOPD: * on methylpred and BDs. Start prednisone burst for 5 days on 08/22. * Wean oxygen as tolerated. DM2 * insulin-dependent * glargine 20 BID and SSI. CAD: * [facility] on 05/02/22: CAD with occluded first obtuse marginal branch with ghost filling of the distal vessel. Previously stented left anterior descending artery which is patent with mild to moderate in-stent stenosis. Previously stented left circumflex artery which is dominant vessel with mid in-stent stenosis. And later down in the angiography was noted nondominant RCA with 90% mid stenosis. Plan was for medical management at that time. * Continue aspirin, clopidogrel, atorvastatin. Chronic conditions: * Hypothyroidism: levothyroxine * Hypertension: On metoprolol succinate DVT prophylaxis: SCDs. ASA 81 BID for 30 days, then resume daily dosing. Code status: full code Disposition: Patient to be discharged home with home care. Patient feels very comfortable managing at home.
[2023-08-24] MEDS: Escitalopram Oxalate 20 MG Tablet PO (08:18)
[2023-08-24] MEDS: guaiFENesin 1,200 MG Tablet 1200 MG PO (08:18)
[2023-08-24] MEDS: predniSONE 20 MG Tablet 40 MG PO (08:18)
[2023-08-24] MEDS: Aspirin 81 MG TAB.CHEW PO (08:18)
[2023-08-24] MEDS: Pantoprazole Sodium 40 MG Tablet PO (08:18)
[2023-08-24] MEDS: Midodrine HCl 5 MG Tablet PO (08:18)
[2023-08-24] MEDS: Clopidogrel Bisulfate 75 MG Tablet PO (08:18)
[2023-08-24] MEDS: Cholecalciferol (VIT D3) 25 MCG TABLET (1,000 UNITS) 50 MCG PO (08:18)
[2023-08-24] MEDS: Ferrous Sulfate 325 MG Tablet PO (08:18)
[2023-08-24] MEDS: Finasteride 5 MG Tablet PO (08:18)
[2023-08-24] MEDS: Metoprolol(XL)Succ 25 MG Tablet PO (08:19)
[2023-08-24] MEDS: Isosorbide Mononitrate 30 MG Tablet 15 MG PO (08:19)
[2023-08-24] MEDS: Insulin Glargine-YFGN 100 UNIT/ML Pen 20 UNIT SC (08:20)
--- NOTE | 2023-08-24 10:31 | DS.PCM_ITS ---
Providers Date of Admission: 08/20/23 Primary Care Physician: Dr. Jonathan Baptiste, Consultations 08/20/23 17:14 Consult: Orthopedics Routine Consulting Provider: Andrea Rose Reason for Consult: right hip fracture EMERGENT Consult: No MD Notified: Yes Date Notified: 08/20/23 Time Notified: 16:20 Method of Notification: Text 08/20/23 19:11 Consult: Nephrology Routine Consulting Provider: Daysi Magana Reason for Consult: ESRD, on hemodialysis EMERGENT Consult: No MD Notified: Yes Date Notified: 08/20/23 Time Notified: 19:11 Method of Notification: Text 08/20/23 19:17 Consult: Cardiology Routine Consulting Provider: Danis Loza Reason for Consult: pre op risk stratification EMERGENT Consult: No MD Notified: Yes Date Notified: 08/20/23 Time Notified: 19:18 Method of Notification: Verbal Reason For Visit: CHF EXACERBATION, RIGHT HIP FRACTURE Diagnosis Discharge Diagnosis (1) Fracture of hip, right, closed: Status: Acute Code(s): S72.001A - Fracture of unspecified part of neck of right femur, initial encounter for closed fracture (2) Fall: Status: Acute Code(s): W19.XXXA - Unspecified fall, initial encounter Plan Right impacted femoral neck fracture * s/p fall * Status post right hip ORIF with cannulated screws. Performed on the seventh. * 25-OH d level 76.4 * Partial weightbearing. Acute HFrEF * EF 50% from echo on 04/29/2022. Now 25%. * Pt still produces urine despite being on HD. Started on IV furosemide. Will discontinue. Continue metoprolol succinate * No ACEi/ARB given ESRD ESRD * on HD despite producing urine * nephrology following Possible AECOPD: * on methylpred and BDs. Start prednisone burst for 5 days on 08/22. * Wean oxygen as tolerated. DM2 * insulin-dependent * glargine 20 BID and SSI. CAD: * [facility] on 05/02/22: CAD with occluded first obtuse marginal branch with ghost filling of the distal vessel. Previously stented left anterior descending artery which is patent with mild to moderate in-stent stenosis. Previously stented left circumflex artery which is dominant vessel with mid in-stent stenosis. And later down in the angiography was noted nondominant RCA with 90% mid stenosis. Plan was for medical management at that time. * Continue aspirin, clopidogrel, atorvastatin. Chronic conditions: * Hypothyroidism: levothyroxine * Hypertension: On metoprolol succinate DVT prophylaxis: SCDs. ASA 81 BID for 30 days, then resume daily dosing. Code status: full code Disposition: Patient to be discharged home with home care. Patient feels very comfortable managing at home. Medications at Discharge Home Medications finasteride 5 mg tablet 5 mg PO DAILY prostate 09/15/17 isosorbide mononitrate 30 mg tablet,extended release 24 hr 15 mg PO DAILY heart 09/15/17 diazepam 5 mg tablet 5 - 10 mg PO BID PRN anxiety 05/12/18 escitalopram oxalate 20 mg tablet (Lexapro) 20 mg PO DAILY depression 09/30/19 ipratropium 0.5 mg-albuterol 3 mg (2.5 mg base)/3 mL nebulization soln 3 ml inhalation Q4H PRN shortness of breath or wheezing 09/30/19 levothyroxine 88 mcg tablet 88 mcg PO DAILY thyroid 12/07/19 albuterol sulfate 90 mcg/actuation aerosol inhaler 2 puff inhalation 4X/DAY breathing 04/28/21 cholecalciferol (vitamin D3) 50 mcg (2,000 unit) capsule (Vitamin D3) 2,000 unit PO DAILY vitamin 04/28/21 loperamide 2 mg capsule 2 mg PO Q4H PRN loose stool 04/28/21 rosuvastatin 10 mg tablet 10 mg PO DAILY cholesterol 04/28/21 clopidogrel 75 mg tablet 75 mg PO DAILY HEART 04/01/22 insulin degludec 100 unit/mL (3 mL) subcutaneous pen (Tresiba FlexTouch U-100 insulin) 20 - 25 unit subcut BID diabetes 04/01/22 ferrous sulfate 325 mg (65 mg iron) tablet,delayed release 325 mg PO QODAY supplement #30 tabs 05/03/22 guaifenesin 1,200 mg tablet, extended release 12 hr (Mucus Relief ER) 1,200 mg PO BID COUGH #60 tabs 09/10/22 nitroglycerin 0.4 mg sublingual tablet 0.4 mg sublingual Q5M PRN Chest Pain #25 tabs 11/21/22 fluticasone fur. 200 mcg-umeclid 62.5 mcg-vilant 25 mcg inhalat.powder (Trelegy Ellipta) 1 inh inhalation DAILY SHORTNESS OF BREATH #60 ea 04/07/23 aspirin 81 mg tablet,delayed release 81 mg PO DAILY 08/20/23 cilostazol 100 mg tablet 100 mg PO BID 08/20/23 hydralazine 10 mg tablet 10 mg PO TID 08/20/23 insulin glargine 100 unit/mL (3 mL) subcutaneous pen (Lantus Solostar U-100 Insulin) 20 unit subcut BID 08/20/23 metoprolol succinate 25 mg tablet,extended release 24 hr 25 mg PO DAILY 08/20/23 midodrine 5 mg tablet 5 mg PO DAILY 08/20/23 pantoprazole 40 mg tablet,delayed release 40 mg PO DAILY GI 08/20/23 sennosides 8.6 mg tablet (senna) 17.2 mg PO BID 08/20/23 sodium chloride 0.65 % nasal spray aerosol (Deep Sea Nasal) 2 spray NASAL Q4H PRN Nasal Dryness 08/20/23 acetaminophen 325 mg tablet 1,000 mg (3.0769 x 325 mg) PO Q8H PRN PRN Pain 1-10 Or Fever >100.7 #0 tabs 08/24/23 aspirin 81 mg chewable tablet 81 mg PO BIDCM #0 tabs 08/24/23 insulin lispro 100 unit/mL subcutaneous pen See Rx Instructions .Route .COMPLEX DM #15 mL 08/24/23 oxycodone 5 mg tablet 5 mg PO Q6H PRN PRN PAIN 1-10 3 days #12 tabs 08/24/23 prednisone 20 mg tablet 40 mg (2 x 20 mg) PO BREAKFAST #6 tabs 08/24/23 Hospital Course Operations - (Right hip ORIF with 7.10 mm cannulated screws.) Summary of Care Provided Minutes Spent on Discharge: 35 Hospital Course: Patient recently sustained a left hip fracture and just graduated from using his walker to a cane where he had a mechanical fall. Patient sustained a right femoral neck fracture. Patient has a history of heart disease and was seen by cardiology for clearance. Echo showed a reduced EF of around 25%. Patient was cleared for surgery by cardiology. Patient did have some mild heart failure as well but being on dialysis he underwent dialysis which he has done well for and has since been taken off of oxygen. Patient on the seventh, underwent a right hip ORIF with screws. Patient tolerated that well. Patient after his left hip fracture went home from the hospital and will be partial weightbearing to that lower extremity until cleared by orthopedics with no use the walker. Patient follow-up with orthopedics as outpatient as well as cardiology and continue with his hemodialysis per his normal routine. Weight / BMI Weight Weight: 82.8 kg Body Mass Index (BMI) 25.4 ABG / Lab / Microbiology Data 08/24/23 05:10 08/24/23 05:10 Laboratory: Laboratory Results - last 24 hr 08/23/23 11:10: POC Glucose 198 H 08/23/23 17:12: POC Glucose 191 H 08/23/23 21:23: POC Glucose 204 H 08/24/23 05:10: WBC 12.7 H, RBC 3.80 L, Hgb 10.8 L, Hct 36.2 L, MCV 95.3 H, MCH 28.4, MCHC 29.8 L, RDW Std Deviation 63.9 H, RDW Coeff of Joana 18.3 H, Plt Count 188, MPV 12.3 H, Immature Gran % (Auto) 0.800, Neut % (Auto) 87.3 H, Lymph % (Auto) 5.5 L, Hood % (Auto) 6.2, Eos % (Auto) 0.0, Baso % (Auto) 0.2, Absolute Neuts (auto) 11.1 H, Absolute Lymphs (auto) 0.69 L, Nucleated RBC % 0, Sodium 137, Potassium 4.5, Chloride 104, Carbon Dioxide 24.0, Anion Gap 9, BUN 86 H, C reatinine 5.16 H, Estim Creat Clear Calc 14.59, Est GFR (MDRD) Af Amer 14 L, Est GFR (MDRD) Non-Af 12 L, BUN/Creatinine Ratio 16.7, Glucose 188 H, Calcium 8.5 08/24/23 06:32: POC Glucose 169 H D/C Instructions Discharge Diet: Renal Diet Weight Bearing Status: Partial weight bearing (Right lower extremity) Meaningful Use Info Meaningful Use Meaningful Use Diagnoses (Choose all that apply): None applicable Ischemic Stroke Statin Dosing Therapy Reference: STATIN DOSE THERAPY REFERENCE: * Patients > 75 years receive moderate or high dose statin therapy. * Patients 75 years or YOUNGER should receive HIGH intensity statin dose unless contraindicated. You will be required to document reason for non-treatment if statin daily dose does not meet guidelines. HIGH DOSE STATIN THERAPY DAILY Atorvastatin > than or = to 40 mg Rosuvastatin > than or = to 20 mg Amlodipine + Atorvastatin > than or = to 2.5/40 mg Ezetimibe + Simvastatin 10/80 mg Simvastatin 80mg Discharge Plan Admission Admit Date/Time: 08/20/23 16:15 Primary Reason for Your Visit: Right femoral neck fracture Attending Provider: Jose J Tucker Primary Care Provider: Jonathan Baptiste Consulting Providers: Andrea Rose; Danis Loza; Daysi Magana; Angeles Howe Instructions Additional Instructions / Restrictions: Partial weightbearing to your right hip until okayed by orthopedics. Continue with your dialysis per your normal routine at [facility] every Friday. You have an appointment with cardiology in December, I recommend seeing if we can get that moved up with your noted increased weakness of your heart now if you are able. Discharge Orders/Prescriptions Prescriptions: New acetaminophen 325 mg Tablet 1,000 mg PO Q8H PRN PRN (Reason: Pain 1-10 Or Fever >100.7) Qty: 0 0RF aspirin 81 mg Tablet,Chewable 81 mg PO BIDCM Qty: 0 0RF Rx Instructions: continue through 09/18/2023, then resume daily. oxycodone 5 mg Tablet 5 mg PO Q6H PRN PRN (Reason: PAIN 1-10) 3 Days Qty: 12 0RF prednisone 20 mg Tablet 40 mg PO BREAKFAST Qty: 6 0RF Continued ipratropium-albuterol 0.5 mg-3 mg(2.5 mg base)/3 mL solution for nebulization 3 ml INHALATION Q4H PRN (Reason: shortness of breath or wheezing) escitalopram oxalate [Lexapro] 20 mg tablet 20 mg PO DAILY nitroglycerin 0.4 mg tablet, sublingual 0.4 mg SUBLINGUAL Q5M PRN (Reason: Chest Pain) Qty: 25 3RF finasteride 5 MG tablet 5 mg PO DAILY isosorbide mononitrate 30 MG tablet 15 mg PO DAILY diazepam 5 MG tablet 5 - 10 mg PO BID PRN (Reason: anxiety) levothyroxine 88 MCG tablet 88 mcg PO DAILY loperamide 2 mg capsule 2 mg PO Q4H PRN (Reason: loose stool) albuterol sulfate 90 mcg/actuation HFA aerosol inhaler 2 puff INHALATION 4X/DAY rosuvastatin 10 mg tablet 10 mg PO DAILY cholecalciferol (vitamin D3) [Vitamin D3] 50 mcg (2,000 unit) capsule 2,000 unit PO DAILY clopidogrel 75 mg tablet 75 mg PO DAILY insulin degludec [Tresiba FlexTouch U-100] 100 unit/mL (3 mL) insulin pen 20 - 25 unit SUBCUT BID ferrous sulfate 325 mg (65 mg iron) tablet,delayed release (DR/EC) 325 mg PO QODAY Qty: 30 0RF hydralazine 10 mg tablet 10 mg PO TID cilostazol 100 mg tablet 100 mg PO BID insulin glargine [Lantus Solostar U-100 Insulin] 100 unit/mL (3 mL) insulin pen 20 unit subcut BID sennosides [senna] 8.6 mg tablet 17.2 mg PO BID midodrine 5 mg tablet 5 mg PO DAILY metoprolol succinate 25 mg tablet extended release 24 hr 25 mg PO DAILY pantoprazole 40 mg Tablet,Delayed Release (Dr/Ec) 40 mg PO DAILY Deep Sea Nasal 0.65 % Aerosol,Susan 2 spray NASAL Q4H PRN (Reason: Nasal Dryness) guaifenesin [Mucus Relief ER] 1,200 mg tablet extended release 12hr 1,200 mg PO BID Qty: 60 11RF Trelegy Ellipta 200-62.5-25 mcg blister with device 1 inh inhalation DAILY Qty: 60 6RF Changed insulin lispro 100 unit/mL insulin pen See Rx Instructions .ROUTE .COMPLEX Qty: 15 0RF Patient Comments: PT VERY CONFUSED WHEN ASKED WHAT THE SLIDING SCALE NUMBERS ARE. Rx Instructions: 150-189 mg/dl = 1 unit 190-229 mg/dl = 2 units 230-269 mg/dl = 3 units 270-309 mg/dl = 4 units 310-349 mg/dl = 5 units 350-399 mg/dl = 6 units 400-449 mg/dl = 7 units Held aspirin 81 mg tablet,delayed release (DR/EC) 81 mg PO DAILY Hold Instructions: Resume on 09/19/23. Discontinued oxycodone 5 MG tablet 5 mg PO BID PRN (Reason: Pain) Rx Instructions: 5-10mg Referrals / Follow Up: [facility] [Provider Group] - 09/02/23 7:30 am [facility] [Provider Group] - 01/15/24 10:30 am [facility] [Provider Group] - 10/17/23 1:15 pm Jonathan Baptiste DO [Primary Care Provider] - Within 2 Weeks Luis Parker MD [Med Staff - Active Staff] - Within 1 Week Disposition Disposition (needs filled in before D/C Order can be placed): Home Health Service Charges/Coding Visit Charges Inpatient E&M: 93628 Disch Hosp >30min
[2023-08-24 11:38] LABS: Bedside Glucose 163 mg/dL (74-106)
--- NOTE | 2023-08-25 13:59 | CASEMGMT ---
DEVEN SAAVEDRA updated by hospitalist that patient was discharged yesterday and would like HHC. RN CM called patient at home and discussed HHC and reviewed agencies over the phone. Patient would like [facility]. Sister enter the home during call and was updated regarding HHC. Patient and sister had no further questions or concerns. DEVEN SAAVEDRA called [facility] and made referral. They are able to accept with planned start of care for tomorrow. DEVEN SAAVEDRA called and updated patient and sister.
== END 2023-08-24 13:55 | disposition home health service (06) | DRG 480 ==
LOC: ED 15:58 → PCU 16:38
PROVIDERS: Anesthesiology; Internal Medicine; Orthopaedic Surgery Sports Medicine; Admitting Provider Student in an Organized Health Care Education/Training Program; Emergency Provider Emergency Medicine; PCP Student in an Organized Health Care Education/Training Program
PROC: 0SS904Z Reposition Right Hip Joint with Internal Fixation Device, Open Approach (ICD-10-PCS; CPT 27245; principal; 2023-08-22 15:00)
DX: S72.001A Fracture of unspecified part of neck of right femur, initial encounter for closed fracture (principal); N18.6 End stage renal disease; I50.23 Acute on chronic systolic (congestive) heart failure; J44.1 Chronic obstructive pulmonary disease with (acute) exacerbation; I13.2 Hypertensive heart and chronic kidney disease with heart failure and with stage 5 chronic kidney disease, or end stage renal disease; D63.1 Anemia in chronic kidney disease; E11.22 Type 2 diabetes mellitus with diabetic chronic kidney disease; I48.0 Paroxysmal atrial fibrillation; E11.51 Type 2 diabetes mellitus with diabetic peripheral angiopathy without gangrene; Z79.4 Long term (current) use of insulin; E03.9 Hypothyroidism, unspecified; I25.5 Ischemic cardiomyopathy; I25.10 Atherosclerotic heart disease of native coronary artery without angina pectoris; E78.00 Pure hypercholesterolemia, unspecified; Z99.2 Dependence on renal dialysis; F17.210 Nicotine dependence, cigarettes, uncomplicated; W18.30XA Fall on same level, unspecified, initial encounter; R09.02 Hypoxemia; N40.0 Benign prostatic hyperplasia without lower urinary tract symptoms; Z99.81 Dependence on supplemental oxygen; Z79.51 Long term (current) use of inhaled steroids; Z79.82 Long term (current) use of aspirin; Z79.02 Long term (current) use of antithrombotics/antiplatelets; Z95.5 Presence of coronary angioplasty implant and graft
CPT/HCPCS: 36415; 71045; 73501; 73502; 73552; 73700; 76000; 80048; 82306; 82962; 83880; 84484; 85025; 90937; 93005; 93306; 94640; 97162; 97166; 97530; 97535; 97802; 99285; 99406; C1713; J7030; Q9957; A4216; C8929; G0257; J1940; J2405